=== PATIENT | female | born 1950 | race Caucasian/White ===

== ENCOUNTER → 2017-07-30 13:49 | Outpatient (CLI) | payer MEDICARE, BC, SELFPAY ==
[2017-07-30 15:07] LABS: Amphetamine Urine VISTA NEGATIVE (<1000 ng/mL); Barbiturate Urine VISTA NEGATIVE (< 200 ng/mL); Benzodiazepine Urine VISTA POSITIVE (< 200 ng/mL); Cocaine Urine VISTA NEGATIVE (< 300 ng/mL); Ecstacy Urine VISTA NEGATIVE (< 500 ng/mL); Methadone Urine VISTA NEGATIVE (< 300 ng/mL); PCP Urine VISTA NEGATIVE (< 25 ng/mL); THC Urine VISTA NEGATIVE (< 50 ng/mL); Vista UDS pH Range 6
== END ==
PROVIDERS: Family Provider Internal Medicine; PCP Internal Medicine; Visit Provider Anesthesiology Pain Medicine
DX: F11.20 Opioid dependence, uncomplicated (principal)
CPT/HCPCS: 80307

== ENCOUNTER 2017-08-07 09:53 | Outpatient (RCR) | payer MEDICARE, BC, SELFPAY ==
--- NOTE | 2017-08-08 08:30 | HP.FCE ---
HP OT Functional Capacity Eval - Task Lift Floor (Occasional 1-33% of Day): 25# Floor (Frequent 34-66% of Day): 12# Floor (Constant 67-100% of Day): 5# Floor PDL: Light-Medium Knee (Occasional 1-33% of Day): 25# Knee (Frequent 34-66% of Day): 12# Knee (Constant 67-100% of Day): 5# Knee PDL: Light-Medium Waist (Occasional 1-33% of Day): 20# Waist (Frequent 34-66% of Day): 10# Waist (Constant 67-100% of Day): NA Waist PDL: Light Shoulder (Occasional 1-33% of Day): 20# Shoulder (Frequent 34-66% of Day): 10# Shoulder (Constant 67-100% of Day): NA Shoulder PDL: Light Overhead (Occasional 1-33% of Day): 10# Overhead (Frequent 34-66% of Day): NA Overhead (Constant 67-100% of Day): NA Overhead PDL: Sedentary - Work Activity/Posture Bending: Frequent Ability (34-66% of day) Squatting: Occasional Ability (1-33% of day) Comments: with use of back brace as needed Kneeling: No Ablility (0% of day) Reaching out: Frequent Ability (34-66% of day) Reaching up: Frequent Ability (34-66% of day) Sitting: Frequent Ability (34-66% of day) Walking: Occasional Ability (1-33% of day) Comments: with use of walking stick when needed Standing: Frequent Ability (34-66% of day) - Reference Duration Sedentary Sedentary Light Light Light Medium Medium Medium Heavy Very Heavy Heavy Occasional (0-33% of day) Frequent (34-66% of day) Constant (67-100% of day) 10 # Negligible Negligible 15 # 8 # Negligible 20 # 10# Negli. 35 # 18 # 7 # 50 # 25 # 10 # 75 # 100 # >100 # 38 # 50 # >50 # 15 # 20 # >20 # - Patient Information Height: 1.63 m Weight:: 78.471 kg Hand Dominance: right - Medical History Medical History Including Restrictions: Pt states in 2002 pt tore her left maniscus pt states she can not remember if she had any follow up therapy or sx following. Pt states in 2011 she had a hurnia repair with complications. PT states in 2014 she injured her back while lifting a spot washer out of her husbands truck with him. She states she crushed her vertebra L4-L5-S1 and had back sx to repair the vertebra- pt states she did go through Physical therapy following her sx. Pt states she does do exercies on a daily basis. Pt has been seen by pain mtg. and have injections for back pain, pt states she has had it done the last two year. pt is unable to recall how many shots done. pt states she feels she was placed on a lift restriction of no more than 25# by OBGYN due to her bladder issues. pt is unsure if her spine surgon put her on any lift restrictions - Diagnoses Diagnoses: Sarmiento's esophagus. Overactive Bladder. Hypertension. Mixed hyperlipidemia. Cornary atherosclerosis. IBS. Dysmetabolic syndrome. Dysphagia. Reversed peristalsis. stress incontinence. Urge incontinence. Frequency of urination. Anxiety. Cephalalgia. Vertigo - Symptoms Symptoms: Muscle cramps. Back pain. Left knee weakness- pt states she does have a brace but does not fit under her pants. - Pain Pain: Pt reports no current pain. - Work History Work History: Pt states she works at [employer], pt states she has worked there 4-6 weeks. 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 Pt states she works 5-7 hours 5 days a week. 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 pt is unsure what her lift requirement is. Pt states she was working at [employer] but pt states she was not getting the hours she needed so she left to find a job to get more hours. - Behavioral Behavioral: pt was cooroperative - ADLS ADLS: Pt states she lives with her in a one story with a basement. Pt states she has two entry steps with two hand rails. PT states she is ind. with all bathing, dressing and meal prep. pt states she does do cleaning and lundry. pt states she does use grab bars in her shower and they have a raised toilet. - Physical Examination ROM: pt demo all upper and lower body range of motion within normal limits Strength: pt demo all upper and lower body range of motion within normal limits- pt demo strength UB at 5/5 and hip flexors at 4/5 and all other lower body strength testing at 5/5. pt demo functional strength Right Career And Transition Teacher Strength Average: 52.33 Right Career And Transition Teacher Strength Percentile: 30% Left Career And Transition Teacher Strength Average: 58.33 Left Career And Transition Teacher Strength Percentile: 32% Right Lateral Pinch Average: 9.33 Right Lateral Pinch Percentile: 25% Left Lateral Pinch Average: 10.33 Left Lateral Pinch Percentile: 50% Right Tripod Pinch Average: 9.00 Right Tripod Pinch Percentile: 25% Left Tripod Pinch Average: 8.66 Left Tripod Pinch Percentile: <50% Sensation: pt demo 2.83 bilateral hands sensation is with in normal limits Fine Motor: 9-hole peg test-. right 24.11 seconds =25%. left 24.02 seconds =50%. pt demo good fine motor skills Balance: no loss of balance was noted during testing - Non Material Handling Activities Bending: PT demo the ability to bend forward three times and then ten times and ten time rapidly. pt can bend forward on a frequent basis. Squatting: Pt demo the ability to squat three times and ten times and ten times rapidly. pt placed back brace on during the portion. pt reported pain in LE during this task -10/24 pt states pain stopped when she finished squatting. pt can squat on an occasional basis with use of back brace when needed. Kneeling: pt demo no ability to kneel. Reaching out/up: pt demo the ability to reach up/out three times and ten times and ten times rapidly. pt completed while standing. pt removed her back brace during this portion. pt can reach up/put on a frequent basis. Walking: Pt amb with antalgic gait for 15 min. pt did start of using a walking stick but after a few min. she just carried it. Pt reported left knee pain during and following ambulation 07/24. PT can ambulate on a occasional basis with use of walking stick as needed. Standing: pt demo ability to stand for 8 min with no expressed or apparent discomfort. pt stands for most of her work day and states she is feeling fine. Per functional activities questionnnaire pt can stand/walk for 8 hours a day. pt can stand on a frequent basis. Sitting: PT demo the ability to sit for 50 min with no expressed discomfort. per functional activities questionnaire pt reports she can drive or ride in a car for 4 hours before need to get out and stretch. pt can sit on a frequent basis. Climbing Stairs: pt demo the ability to ascend and descend ten steps with a reciprical step pattern and use of bilateral hand rails. - Dynamic Occasional Lifting Capacity Floor Lift: pt demo the ability to lift 25# maximally from this level with us of her back brace. Knee Lift: pt demo the ability to lift 25# maximally from this level with us of her back brace. Waist Lift: pt demo the ability to lift 20# maximally from this level with us of her back brace. Shoulder Lift: pt demo the ability to lift 20# maximally from this level with us of her back brace. Overhead Lift: pt demo the ability to lift 10# maximally from this level with us of her back brace. Carrying: Pt demo the ability to carry 10# for 80 feet with use of her back brace.
== END 2017-08-07 19:00 | disposition home or self-care (01) ==
LOC: OT 09:53
PROVIDERS: Family Provider Internal Medicine; PCP Internal Medicine; Visit Provider Anesthesiology Pain Medicine
DX: M54.9 Dorsalgia, unspecified (principal)
CPT/HCPCS: 97750

== ENCOUNTER 2017-09-02 10:27 | Emergency (ER) | payer MEDICARE, BC, SELFPAY ==
[2017-09-02 10:27] VITALS: BP 147/82; PULSE 85; RESP 18; TEMP 36.6; O2SAT 98; BMI 29.2
--- NOTE | 2017-09-02 11:00 | RAD_ITS ---
STUDY: X-RAY CHEST REASON FOR EXAM: Female, 67 years old. Chest pain. TECHNIQUE: Single AP portable view of the chest. COMPARISON: None. FINDINGS: The lungs are clear and expanded. There is no demonstrated pleural abnormality. Normal size heart. Normal mediastinum and prince. Normal visualized pulmonary arteries. There is atherosclerotic tortuosity of the aortic arch and descending thoracic aorta. There is a levoscoliosis of the thoracic spine. Normal visualized ribs, clavicles, and shoulders. There is no demonstrated abnormality of the visualized soft tissue structures of the upper abdomen. RAD/Chest 1 View (Portable) IMPRESSION: No acute abnormality is seen. Electronically Signed: Venkata Singer MD at 11:33 EDT Tel [phone], Service support ,
--- NOTE | 2017-09-02 11:02 | EKG12_ITS ---
Test Reason : CP Blood Pressure : / mmHG Vent. Rate : 074 BPM Atrial Rate : 074 BPM P-R Int : 184 ms QRS Dur : 072 ms QT Int : 388 ms P-R-T Axes : 047 -46 -07 degrees QTc Int : 430 ms Normal sinus rhythm Left axis deviation Low voltage QRS Inferior infarct , age undetermined Abnormal ECG Confirmed by DOUG VARGAS, ESSENCE ([id number]), editorial clerk CARTER HADDAD ([id number]) on 09/04/2017 8:56:15 AM Referred By: YOLANDA Confirmed By:ESSENCE CAMACHO MD
[2017-09-02 11:27] LABS: Absolute Lymphocyte Count 2.21 X10^3/ul (0.83-4.51); Absolute Neutrophil Count 4.4 X10^3/uL (2.0-7.7); Basophil# 0.04 X10^3/uL; Basophil% 0.5 % (0-1); Eosinophil# 0.38 X10^3/uL; Eosinophils% 4.8 % (0-5); Hematocrit 42.9 % (37-47); Lymphocyte # 2.21 X10^3/ul (4.0); Lymphocyte % 28.1 % (19-41); Mean Corp Hgb Conc 32.6 g/gl (32-36); Mean Corpuscular Hgb 30.7 pg (27.0-32.0); Mean Corpuscular Volume 94.1 fL (81-99); Mean Platelet Vol. 9.2 fl (6.2-12.0); Monocyte# 0.84 X10^3/uL; Monocyte% 10.7 % (0-10); Neutrophil # 4.39 X10^3/uL (2.7-7.7); Neutrophil % 55.8 % (47-70); Platelet Count 280 K/mm3 (150-450); RBC Distribution Width CV 13.4 % (11.6-14.6); RBC Distribution Width SD 46.2 fl (35.1-43.9); Red Blood Count 4.56 M/mm3 (4.2-5.4); White Blood Count 7.9 K/mm3 (4.4-11.0)
[2017-09-02 11:28] LABS: POSITIVE COUNT NO; POSITIVE DIFFERENTIAL NO; POSITIVE MORPHOLOGY NO
[2017-09-02 11:46] LABS: Anion Gap 7 (5-15); BUN 18 mg/dL (7-18); BUN/Creat Ratio 20.1 RATIO (10-20); Chloride 108 mmol/L (98-107); EST Glomerular Filtration Rate 67 mL/min (>60); Est Glom Filt Rate - Afr Amer 81 mL/min (>60); Estimated Creatinine Clearance 52.38 ml/min; Glucose 84 mg/dL (74-106); Potassium 3.8 mmol/L (3.5-5.1); Sodium Level 141 mmol/L (136-145)
--- NOTE | 2017-09-02 11:57 | ED.VISSUMM ---
- ER Visit Summary Date of Service: 09/02/17 Chief Complaint: [Chest pain and left arm pain] History of Present Illness: The patient is a 67 F [presents to the emergency department with complaint of retrosternal chest discomfort that she has had for years. Patient states the discomfort seems to come and go. Patient states the discomfort is worse with certain physicians. Patient states the discomfort goes away if she lays on her side. Patient states that she became more concerned as over the last 2 weeks she has had some intermittent discomfort into her left arm. Patient describes discomfort that starts in her left pinky and radiates to the elbow than the shoulder into her back. Patient is also had intermittent headaches that seem to get better with medication that she has at home such as gabapentin and Valium. Patient denies any neck pain. She denies any fever or recent illness. Patient does not have exertional chest pain or shortness of breath.] Physical Examination: [HEENT-PERRLA, EOMI. Cranial nerves II through XII grossly intact. TMs clear. Mucous membranes moist. No adenopathy. Cardiovascular-regular rate and rhythm without murmur or ectopy Lungs-clear to auscultation, chest wall stable without crepitus or subcu emphysema Abdomen-normoactive bowel sounds, soft, nontender, no rebound or rigidity, no peritoneal signs. Extremities-intact ?4, normal range of motion, normal pulses, atraumatic]. Patient has no tenderness to the left arm on palpation and has normal reflexes at the bicep, tricep, and brachial radialis. 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 Test Results: [EKG obtained on arrival showed a sinus rhythm with a ventricular rate of 74 bpm with an old inferior infarct noted. CBC with differential was normal. Chemistries unremarkable. Troponin was less than 0.015. Chest x-ray showed nothing acute.] Emergency Department Course and Treatment: [] Treatment Plan: [Patient follow-up with her neurosurgeon regarding the pain in her left arm with the next 5-7 days. As I suspect she may have a neuropathy or cervical radiculopathy. Patient to follow-up with her primary care physician regarding her chest discomfort although I do not feel this is cardiac as it is very atypical and positional.] Disposition: [Discharged home in stable condition] Impression: [Atypical chest pain Left arm pain-suspect neuropathy versus cervical radiculopathy] This note was generated with [employer] dictation software. It may contain incorrect words, spelling, and punctuation that were not noted in review of the chart prior to signing ED Disposition - Plan for ED Patient: Chief Complaint: Upper Extremity Injury Referrals: Miryam Riojas MD [Primary Care Provider] -
--- NOTE | 2017-09-02 12:01 | ED.DCSUM_ITS ---
- ER Visit Summary Date of Service: 09/02/17 Chief Complaint: [Chest pain and left arm pain] History of Present Illness: The patient is a 67 F [presents to the emergency department with complaint of retrosternal chest discomfort that she has had for years. Patient states the discomfort seems to come and go. Patient states the discomfort is worse with certain physicians. Patient states the discomfort goes away if she lays on her side. Patient states that she became more concerned as over the last 2 weeks she has had some intermittent discomfort into her left arm. Patient describes discomfort that starts in her left pinky and radiates to the elbow than the shoulder into her back. Patient is also had intermittent headaches that seem to get better with medication that she has at home such as gabapentin and Valium. Patient denies any neck pain. She denies any fever or recent illness. Patient does not have exertional chest pain or shortness of breath.] Physical Examination: [HEENT-PERRLA, EOMI. Cranial nerves II through XII grossly intact. TMs clear. Mucous membranes moist. No adenopathy. Cardiovascular-regular rate and rhythm without murmur or ectopy Lungs-clear to auscultation, chest wall stable without crepitus or subcu emphysema Abdomen-normoactive bowel sounds, soft, nontender, no rebound or rigidity, no peritoneal signs. Extremities-intact ?4, normal range of motion, normal pulses, atraumatic]. Patient has no tenderness to the left arm on palpation and has normal reflexes at the bicep, tricep, and brachial radialis. Patient has normal relief pharmacist strength bilaterally. Test Results: [EKG obtained on arrival showed a sinus rhythm with a ventricular rate of 74 bpm with an old inferior infarct noted. CBC with differential was normal. Chemistries unremarkable. Troponin was less than 0.015. Chest x-ray showed nothing acute.] Emergency Department Course and Treatment: [] Treatment Plan: [Patient follow-up with her neurosurgeon regarding the pain in her left arm with the next 5-7 days. As I suspect she may have a neuropathy or cervical radiculopathy. Patient to follow-up with her primary care physician regarding her chest discomfort although I do not feel this is cardiac as it is very atypical and positional.] Disposition: [Discharged home in stable condition] Impression: [Atypical chest pain Left arm pain-suspect neuropathy versus cervical radiculopathy] This note was generated with [employer] dictation software. It may contain incorrect words, spelling, and punctuation that were not noted in review of the chart prior to signing ED Disposition - Plan for ED Patient: Chief Complaint: Upper Extremity Injury Referrals: Miryam Riojas MD [Primary Care Provider] -
--- NOTE | 2017-09-02 12:01 | ED.DEP ---
ED Disposition - Plan for ED Patient: Chief Complaint: Upper Extremity Injury Instructions: ED Chest Pain Atypical Unkn Cause, ED Cervical Radiculopathy Referrals: Miryam Riojas MD [Primary Care Provider] - 5-7 Days
[2017-09-02 12:08] VITALS: BP 119/73; PULSE 66; RESP 16; O2SAT 96
== END 2017-09-02 12:09 | disposition home or self-care (01) ==
LOC: ED 11:46
PROVIDERS: Emergency Provider Emergency Medicine; Family Provider Internal Medicine; PCP Internal Medicine
DX: R07.89 Other chest pain (principal); M79.602 Pain in left arm; Z86.718 Personal history of other venous thrombosis and embolism
CPT/HCPCS: 71045; 80048; 84484; 85025; 93005; 99283

== ENCOUNTER → 2017-11-13 11:25 | Outpatient (CLI) | payer MEDICARE, BC, SELFPAY ==
[2017-11-13 12:34] LABS: Amphetamine Urine VISTA NEGATIVE (<1000 ng/mL); Barbiturate Urine VISTA NEGATIVE (< 200 ng/mL); Benzodiazepine Urine VISTA POSITIVE (< 200 ng/mL); Cocaine Urine VISTA NEGATIVE (< 300 ng/mL); Ecstacy Urine VISTA NEGATIVE (< 500 ng/mL); Methadone Urine VISTA NEGATIVE (< 300 ng/mL); PCP Urine VISTA NEGATIVE (< 25 ng/mL); THC Urine VISTA NEGATIVE (< 50 ng/mL); Vista UDS pH Range 6
== END ==
PROVIDERS: Family Provider Internal Medicine; PCP Internal Medicine; Visit Provider Anesthesiology Pain Medicine
DX: F11.20 Opioid dependence, uncomplicated (principal)
CPT/HCPCS: 80307

== ENCOUNTER 2018-01-23 12:19 | Emergency (ER) | payer MEDICARE, BC, SELFPAY ==
[2018-01-23 12:21] VITALS: BP 153/86; PULSE 78; RESP 17; TEMP 36.9; O2SAT 97; BMI 31.4
--- NOTE | 2018-01-23 12:28 | RAD_ITS ---
STUDY: X-RAY - LEFT WRIST REASON FOR EXAM: Female, 67 years old. Bruising and swelling following a recent fall. TECHNIQUE: 3 view(s) of the wrist were obtained. COMPARISON: None. FINDINGS: Normal visualized distal radius and ulna. Normal radiocarpal articulation. Normal distal radioulnar articulation. Normal carpal bones. Normal carpal articulations. There is degenerative arthrosis of the carpometacarpal articulation of the thumb. Normal second through fifth carpometacarpal articulations. Normal visualized metacarpal bones. Soft tissue swelling. RAD/Wrist min 3 Views IMPRESSION: No acute abnormality is seen. Electronically Signed: Venkata Singer MD at 12:56 EST Tel [phone], Service support ,
--- NOTE | 2018-01-23 13:41 | ED.VISSUMM ---
- ER Visit Summary Date of Service: 01/23/18 Chief Complaint: Left wrist pain History of Present Illness: The patient is a [address] Riojas. She reports that she fell January 05 and continues to have left wrist pain. She reports that some aching constant pain that is 5 out of 10 in severity. States pain is 10 out of 10 with movement. She is taken [place] and gabapentin without relief. She denies any paresthesias distally. Physical Examination: Vitals: Stable. Afebrile. General: Well-nourished and well-developed. Head: Normocephalic atraumatic. Neck: Supple, no lymphadenopathy. No JVD. Nontender. Cardiovascular: Regular rate and rhythm. No murmurs. Respiratory: No respiratory distress. Clear to auscultation bilaterally. Abdominal: Soft, nontender, nondistended, normal bowel sounds. No guarding, rebound, or peritoneal signs. Back: Nontender. Extremities: Mild diffuse tenderness palpation over the distal radius and all of the carpal bones. No focal tenderness in the anatomic snuffbox or with axial load of her thumb. She is neurovascular intact distally. No contusion, no edema. Skin: Normal color, no rash. Neurologic: Alert and oriented ?3. Cranial nerves II through XII are intact. Normal strength and sensation. Psych: Normal affect. Test Results: Left wrist x-ray is negative. Emergency Department Course and Treatment: Patient was placed in a Velcro wrist splint. Treatment Plan: Patient will be discharged instructions to follow-up with her primary care physician 1 week if not improving. Disposition: To home in improved and stable condition. Impression: 1. Left wrist sprain. This note was generated with [employer] dictation software. It may contain incorrect words, spelling, and punctuation that were not noted in review of the chart prior to signing ED Disposition - Plan for ED Patient: Disposition: Home or Assisted Living Chief Complaint: Upper Extremity Injury Instructions: ED Sprain Wrist Referrals: Miryam Riojas MD [Primary Care Provider] - 1 Week if not improving
[2018-01-23 14:10] VITALS: BP 148/84; PULSE 92; RESP 14; O2SAT 98
== END 2018-01-23 14:11 | disposition home or self-care (01) ==
LOC: ED 13:47
PROVIDERS: Emergency Provider Emergency Medicine; Family Provider Internal Medicine; PCP Internal Medicine
DX: S63.502A Unspecified sprain of left wrist, initial encounter (principal); W19.XXXA Unspecified fall, initial encounter; Y93.89 Activity, other specified; Y92.89 Other specified places as the place of occurrence of the external cause; Y99.8 Other external cause status
CPT/HCPCS: 73110; 99283

== ENCOUNTER → 2018-04-03 11:07 | Outpatient (CLI) | payer MEDICARE, BC, SELFPAY ==
--- NOTE | 2018-04-03 11:14 | RAD_ITS ---
STUDY: X-RAY - LEFT KNEE REASON FOR EXAM: Female, 68 years old. Left knee for sometimes getting worse and giving out on her. History of left meniscus surgery 2001. Has fallen a couple of times. TECHNIQUE: 4 view(s) of the knee. COMPARISON: 04/25/2015. FINDINGS: Normal visualized distal femur. Normal visualized proximal tibia and fibula. Normal proximal tibiofibular articulation. Minimal spurring along the femoral notch and femoral condyle medially. There is mild degenerative arthrosis of the medial femorotibial compartment. There is severe degenerative arthrosis of the lateral femorotibial compartment with severe joint space narrowing. Normal patellofemoral articulation. There is no demonstrated joint effusion. The soft tissue structures are unremarkable. 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 There is no acute displaced fracture or dislocation. Electronically Signed: Pricilla Harris MD at 5:34 EST , Service support ,
--- NOTE | 2018-04-03 11:14 | RAD_ITS ---
STUDY: X-RAY - RIGHT KNEE REASON FOR EXAM: Female, 68 years old. Pain in both knees swelling and spasm right knee, history of couple of falls. TECHNIQUE: 4 view(s) of the knee. COMPARISON: 04/18/2015 FINDINGS: Normal visualized distal femur. Normal visualized proximal tibia and fibula. Normal proximal tibiofibular articulation. There is mild degenerative arthrosis of the medial femorotibial compartment. There is mild degenerative arthrosis of the lateral femorotibial compartment. Normal patellofemoral articulation. There is no demonstrated joint effusion. The soft tissue structures are unremarkable. RAD/Knee 4 or More Views IMPRESSION: Mild degenerative changes of the femoral tibial compartments appear overall stable. There is no acute displaced fracture or dislocation. Electronically Signed: Pricilla Harris MD at 5:35 EST , Service support ,
--- OUTSIDE RECORDS SUMMARY | 2018-06-07 21:17 | XMS RPT_ITS ---
:1950 Author Organization OHIP Support Name Relationship Address Phone CHARMAINE ROJAS Unavailable [address] + [place] [address] CRYSTAL, ED Unavailable . + [place] [address] R Unavailable Unavailable Unavailable CRYSTAL, RAY Unavailable [address] + [place] [address] CRYSTAL, ED Unavailable . + [place] [address] R Unavailable Unavailable Unavailable CRYSTAL, RAY Unavailable [address] + [place] [address] CRYSTAL, ED Unavailable Unavailable + [place] [address] R Unavailable Unavailable Unavailable CRYSTAL, RAY Unavailable [address] + [place] [address] CRYSTAL, ED Unavailable Unavailable + [place] [address] R Unavailable Unavailable Unavailable CRYSTAL, RAY Unavailable [address] + [place] [address] CRYSTAL, ED Unavailable Unavailable + [place] [address] R Unavailable Unavailable Unavailable CRYSTAL, RAY Unavailable [address] + [place] [address] CRYSTAL, ED Unavailable Unavailable [phone] [place] [address] R Unavailable Unavailable Unavailable CRYSTAL, RAY Unavailable [address] + [place] [address] CRYSTAL, ED Unavailable Unavailable [phone] [place] [address] R Unavailable Unavailable Unavailable Care Team Providers Name Role Phone PAULO SCOTT Referring Unavailable JUAN RODRIGUEZ (SPICE MIXER) Referring Unavailable JUAN RODRIGUEZ (SPICE MIXER) Attending Unavailable JUAN RODRIGUEZ (SPICE MIXER) Referring Unavailable OLIVIER TEJEDA (PT) Attending Unavailable TALAMPAS, PAULO D Referring Unavailable OLIVIER TEJEDA (PT) Attending Unavailable TALAMPAS, PAULO D Referring Unavailable TESTRAKE, OMERO Referring Unavailable TESTRAKE, OMERO Attending Unavailable TESTRAKE, OMERO Referring Unavailable TESTRAKE, OMERO Attending Unavailable RODRIGUEZJUAN (SPICE MIXER) Attending Unavailable TALAMPAS, PAULO D Referring Unavailable HAAGENOLGA (FLOW TRADER) Attending Unavailable MARADIAGA, DAI D Attending Unavailable MARADIAGA, DAI D Referring Unavailable NIKHILOLIVIER (PT) Attending Unavailable TALAMPAS, PAULO D Referring Unavailable TALAMPAS, PAULO D Referring Unavailable TALAMPAS, PAULO D Referring Unavailable NIKHIL, OLIVIER (PT) Attending Unavailable TALAMPAS, PAULO D Referring Unavailable TALAMPAS, PAULO D Referring Unavailable HAAGEN, OLGA (FLOW TRADER) Attending Unavailable TALAMPAS, PAULO D Referring Unavailable TALAMPAS, PAULO D Attending Unavailable TALAMPAS, PAULO D Referring Unavailable Wayt, Omero Attending Unavailable Talampas, Paulo Referring Unavailable Wayt, Omero Attending Unavailable Wayt, Omero Referring Unavailable Talampas, Paulo Primary Care Unavailable Basali, Crystal Attending Unavailable Basali, Ayman Referring Unavailable Talampas, Paulo Primary Care Unavailable Basali, Crystal Attending Unavailable Basali, Paoman Referring Unavailable Talampas, Paulo Primary Care Unavailable Talampas, Paulo Primary Care Unavailable Ungur, Remus Attending Unavailable Basali, Paoman Attending Unavailable Basali, Ayman Referring Unavailable Talampas, Paulo Primary Care Unavailable Talampas, Apulo Primary Care Unavailable Ramsey Mathias Attending Unavailable PROBLEMS PROBLEMS DATE TYPE CONDITION / CODE ATTENDING STATUS SOURCE 04/03/2018 Unknown M25.561 - Pain in Omero Marie Active [facility] right knee / Community M25.561(ICD-10) Hospital Repository 04/03/2018 Unknown M25.562 - Pain in Omero Marie Active [facility] left knee / Community M25.562(ICD-10) Hospital Repository 02/27/2015 Active Hypothyroidism, NA Active [facility] unspecified / [facility] E03.9(ICD-10) [facility] Repository 06/30/2011 Active Diaphragmatic hernia NA Active [facility] without obstruction [facility] or gangrene / [facility] K44.9(ICD-10) Repository 02/20/2006 Active Metabolic syndrome / NA Active [facility] E88.81(ICD-10) Clinic Main [facility] Repository 11/24/2017 Active Other long-term NA Active [facility] (current) drug [facility] therapy / [facility] Z79.899(ICD-10) Repository 11/13/2017 Unknown F11.20 - Opioid Basali, Ayyovany Active [facility] dependence, Community uncomplicated / Hospital F11.20(ICD-10) Repository 09/11/2017 Active Dizziness and NA Active [facility] giddiness / [facility] R42(ICD-10) [facility] Repository 08/28/2017 Active Unknown / RODRIGUEZ, JUAN Active [facility] UNK(Unknown) (SPICE MIXER) Clinic Main [facility] Repository 11/12/2017 Unknown M54.9 - Dorsalgia, Basali, Ayman Active [facility] unspecified / Community M54.9(ICD-10) Hospital Repository 07/15/2017 Active Peripheral vascular NA Active [facility] disease, unspecified Clinic Main / I73.9(ICD-10) [facility] Repository 07/01/2017 Active Pain, unspecified / NA Active [facility] R52(ICD-10) Clinic Main [facility] Repository 05/26/2017 Active Unspecified fall, NA Active [facility] initial encounter / [facility] W19.XXXA(ICD-10) [facility] Repository 05/26/2017 Active Pain in left NA Active [facility] shoulder / [facility] M25.512(ICD-10) [facility] Repository 03/30/2015 Active Mixed hyperlipidemia NA Active [facility] / E78.2(ICD-10) Clinic Main [facility] Repository 02/27/2015 Active Essential (primary) Active [facility] hypertension / [facility] I10(ICD-10) [facility] Repository 05/22/2017 Active Other abnormal NA Active [facility] glucose / [facility] R73.09(ICD-10) [facility] Repository 04/28/2017 Active Encounter for Active [facility] screening mammogram [facility] for malignant [facility] neoplasm of breast / Repository Z12.31(ICD-10) PROCEDURES PROCEDURES No Procedure Records FoundRESULTS RESULTS ORTHOPEDIC VISIT Observed: 04/03/2018 Status: F Source: [facility] REPORT 12:39 PM [facility] REPOSITORY [facility] [address] [place] [address] OFFICE VISIT Date of Service: 04/03/18 MR#: [id number] Acct: [id number] Name: KESHIA ROJAS Rep #: [id number] : 1950 Provider: LEONEL Marie Age/Sex: 68/F Location: [facility].SMO Status: Signed Intake Intake Visit Reasons: LEFT KNEE Allergies adhesive Allergy (Verified 01/23/18 12:21) Unknown aspirin [From Aggrenox] Allergy (Verified 01/23/18 12:21) Unknown benzocaine [From Cetacaine] Allergy (Verified 01/23/18 12:21) Unknown butamben [From Cetacaine] Allergy (Verified 01/23/18 12:21) Unknown cortisone [Cortisone] Allergy (Verified 01/23/18 12:21) Unknown dipyridamole [From Aggrenox] Allergy (Verified 01/23/18 12:21) Unknown lansoprazole [From Prevacid] Allergy (Verified 01/23/18 12:21) Unknown latex Allergy (Verified 01/23/18 12:21) Unknown meclizine Allergy (Verified 01/23/18 12:21) Unknown methylprednisolone acetate [From Depo-Medrol] Allergy (Verified 01/23/18 12:21) Unknown metoprolol Allergy (Verified 01/23/18 12:21) Unknown omeprazole [From Prilosec] Allergy (Verified 01/23/18 12:21) Unknown omeprazole magnesium [From Prilosec] Allergy (Verified 01/23/18 12:21) Unknown oxybutynin chloride [From Ditropan] Allergy (Verified 01/23/18 12:21) Unknown povidone-iodine [From Betadine] Allergy (Verified 01/23/18 12:21) Unknown soap [From Betadine] Allergy (Verified 01/23/18 12:21) Unknown sulfamethoxazole [From Bactrim] Allergy (Verified 01/23/18 12:21) Unknown tegaserod hydrogen maleate [From Zelnorm] Allergy (Verified 01/23/18 12:21) Unknown tetracaine [From Cetacaine] Allergy (Verified 01/23/18 12:21) Unknown tolterodine tartrate [From Detrol] Allergy (Verified 01/23/18 12:21) Unknown trimethoprim [From Bactrim] Allergy (Verified 01/23/18 12:21) Unknown Medications Cetirizine HCl [Zyrtec] 10 mg PO DAILY 01/11/14 [History Confirmed 04/11/14] Darifenacin Hydrobromide [Enablex] 7.5 mg PO DAILY 01/11/14 [History Confirmed 04/11/14] Diazepam [Valium] 2 mg PO BID PRN PRN 01/11/14 [History Confirmed 04/11/14] Esomeprazole Mag Trihydrate [Nexium] 40 mg PO DAILY 01/11/14 [History Confirmed 04/11/14] Gabapentin [Neurontin] 100 mg PO DAILY 01/11/14 [History Confirmed 04/11/14] Halcinonide [Halog] 30 gm TP TID 01/11/14 [History Confirmed 04/11/14] Levothyroxine [Synthroid] 50 mcg PO DAILY 01/11/14 [History Confirmed 04/11/14] Multivitamins,Therapeutic [Multivitamin] 1 tab PO DAILY 01/11/14 [History Confirmed 04/11/14] Acetaminophen [Tylenol] 325 mg PO Q6H PRN 04/11/14 [History Confirmed 04/11/14] Oxycodone HCl/Acetaminophen [Percocet 5/325] 1 tab PO Q4H PRN PRN 04/11/14 [History Confirmed 04/11/14] PFSH Social History Smoking Status: Never smoker HPI LEFT KNEE: Details: KESHIA ROJAS is a 68 year old F here today for left knee pain, Dr Paz referred her back to us because he did not want to do the injections without ortho consult. Today she has min left knee pain and greater right knee pain with mild swelling. SHe is wearing compression socks at work due to hx of dvt in right calf, her filter was removed in 2014 prior to lumbar spine surgery. She is using a cane today due to instability of the left knee especially when carrying something with her. She has not had any recent imaging of the knees. No recent PT for the knees but she did have a balance assessment that showed poor results, this was done at [facility]. Ortho Exam Right Knee Swelling: No Homans Sign: No Knee ROM: Yes ROM-Extension -20 to 0, No ROM-Flexion 0-140 Examination: Yes Med jt line tenderness, Yes Lat jt line tenderness, No Pain with extention, Yes Pain with flexion, Yes Crepitus, No José Manuel's Test Stability: NML: Anterior Drawer, NML: Valgus 30, NML: Varus 30 KNEE: No evident abnormalities on inspection of the knee. No acute localized or generalized swelling the knee. She has no ecchymosis/bruising, erythema, or other skin changes. Patient has full extension of the knee with some minor decrease in flexion. She does have some discomfort with flexion as well. She has some minor medial and lateral joint line tenderness. There is some crepitus noted with range of motion. She has negative varus and valgus stress. No pain or laxity with drawer test. Left Knee Swelling: No Homans Sign: No Knee ROM: Yes ROM-Extension -20 to 0, No ROM-Flexion 0-140 Examination: Yes med jt line tenderness, Yes Lat jt line tenderness, Yes Pain with flexion, Yes Crepitus Stability: NML: Anterior Drawer, NML: Valgus 30, NML: Varus 30 Patella Grind: Yes KNEE: No evident abnormalities on inspection of the knee. No acute localized or generalized swelling the knee. She has no ecchymosis/bruising, erythema, or other skin changes. Patient has full extension of the knee with some minor decrease in flexion. She does have some discomfort with flexion as well. She has some minor medial and lateral joint line tenderness. There is some crepitus noted with range of motion. She has negative varus and valgus stress. No pain or laxity with drawer test. Assessment AND Plan Problems 1. Bilateral primary osteoarthritis of knee M17.0 Plan We did review patient's x-rays in office today. X-rays definitely shows evidence of moderate tricompartmental narrowing on the left knee as well as some minor tract problem narrowing of the right knee. There are no acute bony abnormalities noted on x-rays indicating any acute fracture or injury. This time we did discuss patient's x-rays which deftly show bilateral arthritis which is worse on the left than the right. She states her pains are actually pretty intermittent where today the right is worse than the left but she complains more about the left. I do think that injections would be something of benefit for her at this time. I did offer her an injection today and she states that her pains are mostly because of the spasm and cramping above and below the knee and wants to know if it would take away that pain. She is currently seeing Dr. Paz for injections of the lower back I did explain discussed that I am not certain that injections directly into the knee joint are going to affect any spasms or cramping above or below the knee or the radiating pain she describes. Some of the radiating pain she describes deafly sounds like it could be coming from the back and therefore think that is may be a better place to start. I do think that with the amount of arthritis seen that injections intra-articularly to the knee would provide her with relief. At this point we discussed this and patient would like to have Dr. Paz do the injections that she has scheduled into the back and we will see if she has any improvement. At that time she is can return to the office here and we can give the injections into the knee or she can have Dr. Paz inject the knee at that time. Patient should continue to wear her braces especially if they provide her some support. She deftly should continue to use a cane or a walker as she does have balance issues in general. This note was generated with PlayWith dictation software. It may contain incorrect words, spelling, and punctuation that were not noted in checking the note before signing. Orders Orders: Plan Detail Follow Up 4 Weeks Coding Level of Care Code Off vis,est,level 3 Diagnoses Bilateral primary osteoarthritis of knee M17.0 04/03/18 1239 <Electronically signed by Omero CASTANEDA> Date Omero CASTANEDA Cosigner Signature: Date (if applicable) CC: KNEE 4 OR MORE Observed: 04/03/2018 Status: F Source: [facility] PAUL 11:14 AM [facility] REPOSITORY [facility] Imaging Services [address] [place] [address] Knee 4 or More Views MR#: [id number] Acct: [id number] Name: KESHIA ROJAS Rep #: [id number] : 1950 F 68 From: Pricilla Harris MD PCP: Paulo Scott MD Status: REG CLI Study: Knee 4 or More Views Date of Exam: 04/03/18 Exam# [id number] Ordering Dr: Omero Marie STUDY: X-RAY - LEFT KNEE REASON FOR EXAM: Female, 68 years old. Left knee for sometimes getting worse and giving out on her. History of left meniscus surgery 2001. Has fallen a couple of times. TECHNIQUE: 4 view(s) of the knee. COMPARISON: 04/25/2015. FINDINGS: Normal visualized distal femur. Normal visualized proximal tibia and fibula. Normal proximal tibiofibular articulation. Minimal spurring along the femoral notch and femoral condyle medially. There is mild degenerative arthrosis of the medial femorotibial compartment. There is severe degenerative arthrosis of the lateral femorotibial compartment with severe joint space narrowing. Normal patellofemoral articulation. There is no demonstrated joint effusion. The soft tissue structures are unremarkable. 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 There is no acute displaced fracture or dislocation. Electronically Signed: Pricilla Harris MD at 5:34 EST , Service support , CC: LEONEL Marie; Paulo Scott MD Healthcare Educator: Signed KNEE 4 OR MORE Observed: 04/03/2018 Status: F Source: [facility] VIEWS 11:14 AM [facility] REPOSITORY [facility] Imaging Services [facility] [place] [address] Knee 4 or More Views MR#: [id number] Acct: [id number] Name: KESHIA ROJAS Rep #: [id number] : 1950 F 68 From: Pricilla Harris MD PCP: Paulo Scott MD Status: REG CLI Study: Knee 4 or More Views Date of Exam: 04/03/18 Exam# [id number] Ordering Dr: Omero Marie STUDY: X-RAY - RIGHT KNEE REASON FOR EXAM: Female, 68 years old. Pain in both knees swelling and spasm right knee, history of couple of falls. TECHNIQUE: 4 view(s) of the knee. COMPARISON: 04/18/2015 FINDINGS: Normal visualized distal femur. Normal visualized proximal tibia and fibula. Normal proximal tibiofibular articulation. There is mild degenerative arthrosis of the medial femorotibial compartment. There is mild degenerative arthrosis of the lateral femorotibial compartment. Normal patellofemoral articulation. There is no demonstrated joint effusion. The soft tissue structures are unremarkable. RAD/Knee 4 or More Views IMPRESSION: Mild degenerative changes of the femoral tibial compartments appear overall stable. There is no acute displaced fracture or dislocation. Electronically Signed: Pricilla Harris MD at 5:35 EST , Service support , CC: LEONEL Marie; Paulo Scott MD Healthcare Educator: Signed PROGRESS Observed: 02/06/2018 Status: COMPLETED Source: [place] 12:16 PM [facility] REPOSITORY HNO ID: [id number] Author: Paulo Scott Service: (none) Author Type: Physician Type: Progress Notes Filed: 02/19/2018 10:41 PM Note Text: This note was created using IQMSriter. Subjective Keshia Rojas is a 67 year old female. HISTORY Keshia Rojas is a 67 year old lad here for follow up appointment. Ongoing issues with retrograde peristalsis. Work will allow only 5 minutes for a break. Strained back when fell. To get sling. Some chest pain related. Some intermittent leg swelling noted; more after rehydrating after work. Reviewed ER evaluation in August 2017 for chest pain. Ongoing stressors dealing with . Work has been stressful--not able to eat while at work because needs to be able to take her time to eat to avoid problems with reverse peristalsis and regurgitation. No where private for her to eat. 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 (Dr. Charlton) - Cataracts, both eyes - Coronary atherosclerosis of unspecified type of vessel, douglas or graft minimal plaque on cath 08/06/2006 - DVT (deep venous thrombosis) ([facility]) 2010 Right leg OCTOBER 2009 NOT TREATED - Dysmetabolic syndrome X - Esophageal reflux - Fibromyalgia better with Lyrica - Floppy eyelid syndrome - Hiatal hernia Large when seen on EGD 10/2010 at [facility] (Dr. 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 diazePAM (VALIUM) 5 mg tablet Take 1 tablet by mouth twice daily as needed (vertigo or anxiety) for up to 90 days. lisinopril (ZESTRIL, PRINIVIL) 10 mg tablet Take 1 tablet by mouth once daily. levothyroxine (SYNTHROID) 50 mcg tablet Take 1 tablet by mouth once daily. white petrolatum 94% - mineral oil 3% 94-3 % oint Dr. [facility] esomeprazole (NEXIUM 24HR) 20 mg capsule Take 1 capsule by mouth once daily. Needs Namebrand over the counter, not generic. gabapentin (NEURONTIN) 100 mg capsule Take 3 capsules at bedtime (Dr. Paz) (Patient taking differently: 300 mg daily at bedtime. Take 3 capsules at bedtime (Dr. 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 DX: EDEMA 782.3, venous insuffiency 459.81(Futuro therapeutic open heel and open toe if available) acetaminophen (TYLENOL) 325 mg tablet Take 650 mg by mouth every 6 hours as needed. COMPOUNDED PRESCRIPTION [place] Antiseptic Powder (carbolic acid; zinc oxide) as needed per Dr. Arleen Burdick multivitamin ORAL tablet Take 1 tablet by mouth twice daily. sodium chloride 0.9 % soln 1,000 mL with povidone-iodine 10 % soln 20 mL Irrigate 2 Drops as instructed once daily. No current facility-administered medications for this visit. ALLERGIES Allergen Reactions - Ekg Patches [Other] Hives skin gets red and raw needs hypoalergetic patches also any patch used for testing - Aggrenox [Aspirin-D* Other: See Comments Headache - Bactrim [Sulfametho* dizzy, redness, face flushed - Betadine [Povidone-* Rash - Cetacaine [Butamben* Other: See Comments excessive mucous production - Cigarettes [Other] Shortness of Breath Hard to breath/has a sensitivity not an allergy - Codeine Intolerance - Cortisone Shortness of Breath injection was given and swelled and had trouble breathing - Depomedrol [Other] Swelling FACE SWELLED AFTER CORTISONE SHOT IN KNEE - Detrol [Tolterodine* Intolerance HEAD ACHE ,DRY MOUTH - Ditropan [Oxybutyni* Intolerance DIZZY,SUN SENSITIVE - Latex Rash - Meclizine Swelling URINARY RETENTION,FACE FELT FUNNY - Metoprolol GI Upset headache.itching.hives. - Myrbetriq [Mirabegr* Other: See Comments elevated BP - Paper Tape [Other] Rash - Prevacid [Lansopraz* GI Upset GAS,BURPING HEADACHE - Prilosec [Omeprazol* Diarrhea - Tizanidine Other: See Comments increased pain - Zelnorm [Tegaserod * Hives FAMILY HISTORY Problem Relation Age of Onset - other (Celiac disease) Mother Cancer at 87 y/o - Cancer Father PROSTATE ?KIDNEYBLADDER,? at 7o's - Cancer Paternal Grandfather MELONOMA - Colon Cancer Maternal Aunt - Hypertension Sister - Cancer Other LYMPHOBLASTOMA GREAT GRANDMOTHER PATERNAL - Colon Cancer Maternal Grandmother - other (Heart / Stroke) Maternal Grandmother AND CANCER OF STOMACH - Breast Cancer Maternal Aunt diagnosed in her 90's Social History Marital status: Spouse name: charmaine Years of education: 13.5 Number of children: 3 Occupational History Occupation Employer Comment retired [employer]* Social History Main Topics Smoking status: Never Smoker Smokeless tobacco: Never Used Alcohol use: Yes 6.0 oz/week Comment: occasionally rare Drug use: No Sexual activity: Not Currently Partners with: Male Review of Systems Constitutional: Positive for fatigue. HENT: Negative. Respiratory: Negative. Negative for apnea. Cardiovascular: No signs of cardiac ischemia Gastrointestinal: See HPI Endocrine: Negative. Genitourinary: Negative. Musculoskeletal: See HPI Psychiatric/Behavioral: Ongoing depression and anxiety issues; stress with and his medical issues Objective BP 132/76 Pulse 72 Resp 16 Wt 82.1 kg (181 lb) BMI 31.07 kg/m? Physical Exam Component Latest Ref Rng AND Units 11/24/2017 WBC 3.70 - 11.00 k/uL 8.76 RBC 3.90 - 5.20 m/uL 4.74 Hemoglobin 11.5 - 15.5 g/dL 14.6 Hematocrit 36.0 - 46.0 % 46.8 (H) MCV 80.0 - 100.0 fL 98.7 MCH 26.0 - 34.0 pG 30.8 MCHC 30.5 - 36.0 g/dL 31.2 RDW-CV 11.5 - 15.0 % 13.3 Platelet Count 150 - 400 k/uL 318 MPV 9.0 - 12.7 fL 9.8 Neut% % 41.5 Abs Neut (ANC) 1.45 - 7.50 k/uL 3.61 Lymph% % 43.9 Abs Lymph 1.00 - 4.00 k/uL 3.85 [place]% % 7.8 Abs [place] <0.87 k/uL 0.68 Eosin% % 5.7 Abs Eosin <0.46 k/uL 0.50 (H) Baso% % 1.1 Abs Baso <0.11 k/uL 0.10 Nucleated Reds 0 /100 WBC 0.0 Absolute nRBC <0.01 k/uL <0.01 Diff Type Auto Diff Protein, Total 6.3 - 8.0 g/dL 6.3 Albumin 3.9 - 4.9 g/dL 3.8 (L) Calcium 8.5 - 10.2 mg/dL 9.5 Bilirubin, Total 0.2 - 1.3 mg/dL 0.4 Alkaline Phosphatase 32 - 117 U/L 62 AST 13 - 35 U/L 23 Glucose 74 - 99 mg/dL 96 BUN 7 - 21 mg/dL 16 Creatinine 0.58 - 0.96 mg/dL 0.79 Sodium 136 - 144 mmol/L 141 Potassium 3.7 - 5.1 mmol/L 4.3 Chloride 97 - 105 mmol/L 103 CO2 22 - 30 mmol/L 26 Anion Gap 9 - 18 mmol/L 12 ALT 7 - 38 U/L 21 eGFR- >60 eGFR-All Other Races . >60 Cholesterol, Total <200 mg/dL 186 Triglyceride <150 mg/dL 104 HDL Cholesterol >39 mg/dL 53 LDL Cholesterol <100 mg/dL 112 (H) Non HDL Cholesterol <130 mg/dL 133 (H) Fasting Time hrs 12 VLDL Cholesterol <30 mg/dL 21 TC:HDL Ratio <5.10 3.51 LDL:HDL Ratio <2.54 2.11 Creatinine, Ur Random (UCRR) 20 - 300 mg/dL 91.7 Albumin, Urine Random 0.0 - 23.0 mg/L <12.0 Albumin/Creat Ratio 0 - 30 mg/g Not calculated Hemoglobin A1C 4.3 - 5.6 % 5.9 (H) Estimated Average Glucose mg/dL 123 TSH 0.400 - 5.500 uU/mL 3.120 Free T3 2.3 - 4.1 pg/mL 2.8 Free T4 0.9 - 1.7 ng/dL 1.1 Assessment and Plan Encounter Diagnosis ICD-10-CM 1. Anxiety F41.9 diazePAM (VALIUM) 5 mg tablet 2. Reversed peristalsis R19.2 3. Vertigo R42 diazePAM (VALIUM) 5 mg tablet 4. Acquired hypothyroidism E03.9 5. Essential hypertension I10 6. Mixed hyperlipidemia E78.2 7. Marital conflict Z63.0 Patient here for yearly exam and follow up. Valium helps with anxiety and vertigo. Stable with control. No signs of diversion or abuse of medication(s); no adverse effects. Continue present management. [facility] website checked and validated. All prescriptions have been APPROPRIATELY filled. No suspicious activity was identified. 02/06/2018 by Paulo Scott MD Clinically euthyroid. TSH fine. Continue to adjust dose of replacement as indicated based on symptoms and labs. BP controlled. Continue present management. Above issues addressed with patient. Patient involved in shared decision making for management of medical issues. History and medications reviewed. Epic updated as needed Refills taken care of and meds adjusted as indicated after reviewed history, exam and labs. Health Maintenance reviewed. Updated record and/or ordered tests as recorded. Encouraged on efforts at healthy diet and regular exercise and adequate sleep. Needs to keep working on diet and exercise with lifestyle changes for effective weight loss as well as prevention of DM, and control of BP and lipids. Told her to let me know if a letter with restrictions (such as need for longer time to eat at breaks) can help so does not have to go all workday without eating or drinking. Emotional support given. The majority of the visit was spent counseling and/or coordinating care for the patient. Jylp-jv-nqie time was at least 25 minutes. Paulo Scott MD CNOV Observed: 02/06/2018 Status: COMPLETED Source: [place] 10:40 AM [facility] REPOSITORY Office Visit (INTMWS) KESHIA ROJAS ([id number]) 1950 F Date Time Provider Department 02/06/18 10:40 AM PAULO SCOTT INTMWS During your visit today, we recorded the following information about you: Pulse Respiration Blood pressure Weight 72/minute 16/minute 132/76 82.1 kg Paulo Scott MD 02/19/2018 10:41 PM Signed This note was created using IQMSriter. Subjective Keshia Rojas is a 67 year old female. HISTORY Keshia Rojas is a 67 year old lad here for follow up appointment. Ongoing issues with retrograde peristalsis. Work will allow only 5 minutes for a break. Strained back when fell. To get sling. Some chest pain related. Some intermittent leg swelling noted; more after rehydrating after work. Reviewed ER evaluation in August 2017 for chest pain. Ongoing stressors dealing with . Work has been stressful--not able to eat while at work because needs to be able to take her time to eat to avoid problems with reverse peristalsis and regurgitation. No where private for her to eat. 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 (Dr. Charlton) - Cataracts, both eyes - Coronary atherosclerosis of unspecified type of vessel, douglas or graft minimal plaque on cath 08/06/2006 - DVT (deep venous thrombosis) ([facility]) 2009 Right leg OCTOBER 2009 NOT TREATED - Dysmetabolic syndrome X - Esophageal reflux - Fibromyalgia better with Lyrica - Floppy eyelid syndrome - Hiatal hernia Large when seen on EGD 10/2010 at [facility] (Dr. 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 diazePAM (VALIUM) 5 mg tablet Take 1 tablet by mouth twice daily as needed (vertigo or anxiety) for up to 90 days. lisinopril (ZESTRIL, PRINIVIL) 10 mg tablet Take 1 tablet by mouth once daily. levothyroxine (SYNTHROID) 50 mcg tablet Take 1 tablet by mouth once daily. white petrolatum 94% - mineral oil 3% 94-3 % oint [facility] esomeprazole (NEXIUM 24HR) 20 mg capsule Take 1 capsule by mouth once daily. Needs Namebrand over the counter, not generic. gabapentin (NEURONTIN) 100 mg capsule Take 3 capsules at bedtime (Dr. Paz) (Patient taking differently: 300 mg daily at bedtime. Take 3 capsules at bedtime (Dr. 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 DX: EDEMA 782.3, venous insuffiency 459.81(Futuro therapeutic open heel and open toe if available) acetaminophen (TYLENOL) 325 mg tablet Take 650 mg by mouth every 6 hours as needed. COMPOUNDED PRESCRIPTION Shackelford Antiseptic Powder (carbolic acid; zinc oxide) as needed per Dr. Arleen Burdick multivitamin ORAL tablet Take 1 tablet by mouth twice daily. sodium chloride 0.9 % soln 1,000 mL with povidone-iodine 10 % soln 20 mL Irrigate 2 Drops as instructed once daily. No current facility-administered medications for this visit. ALLERGIES Allergen Reactions - Ekg Patches [Other] Hives skin gets red and raw needs hypoalergetic patches also any patch used for testing - Aggrenox [Aspirin-D* Other: See Comments Headache - Bactrim [Sulfametho* dizzy, redness, face flushed - Betadine [Povidone-* Rash - Cetacaine [Butamben* Other: See Comments excessive mucous production - Cigarettes [Other] Shortness of Breath Hard to breath/has a sensitivity not an allergy - Codeine Intolerance - Cortisone Shortness of Breath injection was given and swelled and had trouble breathing - Depomedrol [Other] Swelling FACE SWELLED AFTER CORTISONE SHOT IN KNEE - Detrol [Tolterodine* Intolerance HEAD ACHE ,DRY MOUTH - Ditropan [Oxybutyni* Intolerance DIZZY,SUN SENSITIVE - Latex Rash - Meclizine Swelling URINARY RETENTION,FACE FELT FUNNY - Metoprolol GI Upset headache.itching.hives. - Myrbetriq [Mirabegr* Other: See Comments elevated BP - Paper Tape [Other] Rash - Prevacid [Lansopraz* GI Upset GAS,BURPING HEADACHE - Prilosec [Omeprazol* Diarrhea - Tizanidine Other: See Comments increased pain - Zelnorm [Tegaserod * Hives FAMILY HISTORY Problem Relation Age of Onset - other (Celiac disease) Mother Cancer at 87 y/o - Cancer Father PROSTATE ?KIDNEYBLADDER,? at 7o's - Cancer Paternal Grandfather MELONOMA - Colon Cancer Maternal Aunt - Hypertension Sister - Cancer Other LYMPHOBLASTOMA GREAT GRANDMOTHER PATERNAL - Colon Cancer Maternal Grandmother - other (Heart / Stroke) Maternal Grandmother AND CANCER OF STOMACH - Breast Cancer Maternal Aunt diagnosed in her 90's Social History Marital status: Spouse name: charmaine Years of education: 13.5 Number of children: 3 Occupational History Occupation Employer Comment retired [employer]* Social History Main Topics Smoking status: Never Smoker Smokeless tobacco: Never Used Alcohol use: Yes 6.0 oz/week Comment: occasionally rare Drug use: No Sexual activity: Not Currently Partners with: Male Review of Systems Constitutional: Positive for fatigue. HENT: Negative. Respiratory: Negative. Negative for apnea. Cardiovascular: No signs of cardiac ischemia Gastrointestinal: See HPI Endocrine: Negative. Genitourinary: Negative. Musculoskeletal: See HPI Psychiatric/Behavioral: Ongoing depression and anxiety issues; stress with and his medical issues Objective BP 132/76 Pulse 72 Resp 16 Wt 82.1 kg (181 lb) BMI 31.07 kg/m? Physical Exam Component Latest Ref Rng AND Units 11/24/2017 WBC 3.70 - 11.00 k/uL 8.76 RBC 3.90 - 5.20 m/uL 4.74 Hemoglobin 11.5 - 15.5 g/dL 14.6 Hematocrit 36.0 - 46.0 % 46.8 (H) MCV 80.0 - 100.0 fL 98.7 MCH 26.0 - 34.0 pG 30.8 MCHC 30.5 - 36.0 g/dL 31.2 RDW-CV 11.5 - 15.0 % 13.3 Platelet Count 150 - 400 k/uL 318 MPV 9.0 - 12.7 fL 9.8 Neut% % 41.5 Abs Neut (ANC) 1.45 - 7.50 k/uL 3.61 Lymph% % 43.9 Abs Lymph 1.00 - 4.00 k/uL 3.85 [place]% % 7.8 Abs [place] <0.87 k/uL 0.68 Eosin% % 5.7 Abs Eosin <0.46 k/uL 0.50 (H) Baso% % 1.1 Abs Baso <0.11 k/uL 0.10 Nucleated Reds 0 /100 WBC 0.0 Absolute nRBC <0.01 k/uL <0.01 Diff Type Auto Diff Protein, Total 6.3 - 8.0 g/dL 6.3 Albumin 3.9 - 4.9 g/dL 3.8 (L) Calcium 8.5 - 10.2 mg/dL 9.5 Bilirubin, Total 0.2 - 1.3 mg/dL 0.4 Alkaline Phosphatase 32 - 117 U/L 62 AST 13 - 35 U/L 23 Glucose 74 - 99 mg/dL 96 BUN 7 - 21 mg/dL 16 Creatinine 0.58 - 0.96 mg/dL 0.79 Sodium 136 - 144 mmol/L 141 Potassium 3.7 - 5.1 mmol/L 4.3 Chloride 97 - 105 mmol/L 103 CO2 22 - 30 mmol/L 26 Anion Gap 9 - 18 mmol/L 12 ALT 7 - 38 U/L 21 eGFR- >60 eGFR-All Other Races . >60 Cholesterol, Total <200 mg/dL 186 Triglyceride <150 mg/dL 104 HDL Cholesterol >39 mg/dL 53 LDL Cholesterol <100 mg/dL 112 (H) Non HDL Cholesterol <130 mg/dL 133 (H) Fasting Time hrs 12 VLDL Cholesterol <30 mg/dL 21 TC:HDL Ratio <5.10 3.51 LDL:HDL Ratio <2.54 2.11 Creatinine, Ur Random (UCRR) 20 - 300 mg/dL 91.7 Albumin, Urine Random 0.0 - 23.0 mg/L <12.0 Albumin/Creat Ratio 0 - 30 mg/g Not calculated Hemoglobin A1C 4.3 - 5.6 % 5.9 (H) Estimated Average Glucose mg/dL 123 TSH 0.400 - 5.500 uU/mL 3.120 Free T3 2.3 - 4.1 pg/mL 2.8 Free T4 0.9 - 1.7 ng/dL 1.1 Assessment and Plan Encounter Diagnosis ICD-10-CM 1. Anxiety F41.9 diazePAM (VALIUM) 5 mg tablet 2. Reversed peristalsis R19.2 3. Vertigo R42 diazePAM (VALIUM) 5 mg tablet 4. Acquired hypothyroidism E03.9 5. Essential hypertension I10 6. Mixed hyperlipidemia E78.2 7. Marital conflict Z63.0 Patient here for yearly exam and follow up. Valium helps with anxiety and vertigo. Stable with control. No signs of diversion or abuse of medication(s); no adverse effects. Continue present management. PDMP website checked and validated. All prescriptions have been APPROPRIATELY filled. No suspicious activity was identified. 02/06/2018 by Paulo Scott MD Clinically euthyroid. TSH fine. Continue to adjust dose of replacement as indicated based on symptoms and labs. BP controlled. Continue present management. Above issues addressed with patient. Patient involved in shared decision making for management of medical issues. History and medications reviewed. Epic updated as needed Refills taken care of and meds adjusted as indicated after reviewed history, exam and labs. Health Maintenance reviewed. Updated record and/or ordered tests as recorded. Encouraged on efforts at healthy diet and regular exercise and adequate sleep. Needs to keep working on diet and exercise with lifestyle changes for effective weight loss as well as prevention of DM, and control of BP and lipids. Told her to let me know if a letter with restrictions (such as need for longer time to eat at breaks) can help so does not have to go all workday without eating or drinking. Emotional support given. The majority of the visit was spent counseling and/or coordinating care for the patient. Uzlv-zz-lhna time was at least 25 minutes. Paulo Scott MD Referring Provider: PAULO SCOTT [[id number]] Allergies As of Date: 02/06/2018 Noted Allergy Reaction ekg patches [Other] 02/20/2006 4 - Hives Comments: skin gets red and raw needs hypoalergetic patches also any patch used for testing AGGRENOX (ASPIRIN-DIPYRIDAMOLE) 05/27/2011 14 - Other: See Comments Comments: Headache BACTRIM (SULFAMETHOXAZOLE-TRIMETH*03/20/2006 Comments: dizzy, redness, face flushed BETADINE (POVIDONE-IODINE) 11/04/2006 2 - Rash CETACAINE ([id number]*09/11/2012 14 - Other: See Comments Comments: excessive mucous production cigarettes [Other] 02/22/2010 12 - Shortness of Breath Comments: Hard to breath/has a sensitivity not an allergy CODEINE 03/07/2006 5 - Intolerance CORTISONE 12 - Shortness of Breath Comments: injection was given and swelled and had trouble breathing DEPOMEDROL [Other] 03/07/2006 7 - Swelling Comments: FACE SWELLED AFTER CORTISONE SHOT IN KNEE DETROL (TOLTERODINE TARTRATE) 03/07/2006 5 - Intolerance Comments: HEAD ACHE ,DRY MOUTH DITROPAN (OXYBUTYNIN CHLORIDE) 03/07/2006 5 - Intolerance Comments: DIZZY,SUN SENSITIVE LATEX 11/03/2009 2 - Rash MECLIZINE 03/07/2006 7 - Swelling Comments: URINARY RETENTION,FACE FELT FUNNY METOPROLOL 04/24/2006 8 - GI Upset Comments: headache.itching.hives. MYRBETRIQ (MIRABEGRON) 12/26/2014 14 - Other: See Comments Comments: elevated BP paper tape [Other] 08/15/2006 2 - Rash PREVACID (LANSOPRAZOLE) 03/07/2006 8 - GI Upset Comments: GAS,BURPING HEADACHE PRILOSEC (OMEPRAZOLE MAGNESIUM) 6 - Diarrhea TIZANIDINE 03/24/2014 14 - Other: See Comments Comments: increased pain ZELNORM (TEGASEROD HYDROGEN RACHELL*03/07/2006 4 - Hives Date Reviewed: 02/06/2018 Reviewed by: Danielle Brian LPN - Fully Assessed Reason for Visit: Physical [83] Primary Visit Diagnosis:Anxiety [F41.9] Other Visit Diagnoses:Reversed peristalsis [R19.2] Vertigo [R42] Acquired hypothyroidism [E03.9] Essential hypertension [I10] Mixed hyperlipidemia [E78.2] Marital conflict [Z63.0] Order(s):[START ON 03/02/2018] diazePAM (VALIUM) 5 mg tabletTake 1 tablet by mouth twice daily as needed (vertigo or anxiety) for up to 90 days.Disp: 90 tabletRfl: 0 Prescriptions as of 02/06/2018 Sig: HYOSCYAMINE SULFATE 0.125 MG * LUBIPROSTONE 8 MCG CAPSULE Take 8 mcg by mouth daily wit* DIAZEPAM 5 MG TABLET Take 1 tablet by mouth twice * LISINOPRIL 10 MG TABLET Take 1 tablet by mouth once d* LEVOTHYROXINE 50 MCG TABLET Take 1 tablet by mouth once d* WHITE PETROLATUM-MINERAL OIL * [facility] ESOMEPRAZOLE MAGNESIUM 20 MG * Take 1 capsule by mouth once * GABAPENTIN 100 MG CAPSULE Take 3 capsules at bedtime (D* Patient taking differently: 300 mg daily at bedtime. Take* COMPOUNDED PRESCRIPTION SEMI ELECTRIC HOSPITAL BED AN* HYDROCODONE 5 MG-ACETAMINOPHE* Take 1 by mouth at bedtime COMPOUNDED PRESCRIPTION KNEE HIGH COMPRESSION STOCKIN* ACETAMINOPHEN 325 MG TABLET Take 650 mg by mouth every 6 * COMPOUNDED PRESCRIPTION Shackelford Antiseptic Powder (c* * MULTIVITAMIN TABLET Take 1 tablet by mouth twice * POVIDONE IODINE 2% IN 0.9% NA* Irrigate 2 Drops as instructe* Medication notes this encounter MULTIVITAMIN TABLET >> Danielle Brian LPN 02/06/2018 11:42 AM >> DANIELLE BRIAN LPN FriFeb 06, 2018 11:42 AM Problem List As Of Date 02/06/2018 Noted Resolved Essential hypertension [I10] Acute, but ill-defined, cerebrovascular disease*INVALID FOR*12/28/2016 More... Mixed hyperlipidemia [E78.2] Coronary atherosclerosis [I25.10] 1) Laparotomy 2) Joann gastroplasty 3) Wedge t* 06/30/2011 More... IRRITABLE COLON [K58.9] DYSMETABOLIC SYNDROME X [E88.81] Hypothyroidism [E03.9] More... DVT (deep venous thrombosis) ([facility]) [I82.409] INVALID FOR*03/04/2017 More... Anemia [D64.9] INVALID FOR* 1) Laparotomy 2) Joann gastroplasty 3) Wedge * More... Obesity [E66.9] Discharge planning [Z71.89] INVALID FOR*09/03/2011 More... Other acute postoperative pain [G89.18] INVALID FOR*09/03/2011 More... 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 OAB (overactive bladder) [N32.81] INVALID FOR* Reversed peristalsis [R19.2] INVALID FOR* More... Stress incontinence [N39.3] INVALID FOR* Urge incontinence [N39.41] INVALID FOR* Frequency of urination [R35.0] INVALID FOR* Nocturia [R35.1] INVALID FOR* Kidney stone [N20.0] INVALID FOR* Anxiety [F41.9] INVALID FOR* Marital conflict [Z63.0] INVALID FOR* Cephalalgia [R51] INVALID FOR* IFG (impaired fasting glucose) [R73.01] INVALID FOR* Lipoma of right upper extremity [D17.21] INVALID FOR* Vertigo [R42] INVALID FOR* Falls, subsequent encounter [W19.XXXD] INVALID FOR* Acute pain of left shoulder [M25.512] INVALID FOR* Neck pain, chronic [M54.2, G89.29] INVALID FOR* Prescriptions ordered this encounter Disp Refills Start End DIAZEPAM 5 MG TABLET 90 t* 0 03/02/2018 05/31/2018 Class: Print RX Route: ORAL Sig: Take 1 tablet by mouth twice daily as needed (vertigo or anxiety) for up to 90 days. Medications Discontinued During This Encounter diazePAM (VALIUM) 5 mg tablet 90 t* 0 11/25/2017 02/06/2018 Class: Print RX Route: ORAL Sig: Take 1 tablet by mouth twice daily as needed (vertigo or anxiety) for up to 90 days. Disc: Reason for discontinue is not on file. Disposition: Return for 3 months follow up (make next 2 appointments). Follow-up and Disposition History Recorded Letter Text [facility] Department of Internal Medicine Paulo Scott MD [address], [place] [address] February 06, 2018 Keshia Rojas : 1950 To whom it may concern: My patient, Keshia Rojas, requires at least 15 to 30 minutes after eating and drinking because of medical issues. 5 minutes is not adequate time for eating. Please allow time for her break. Sincerely, Paulo Scott MD Encounter Status:Closed by PAULO SCOTT MD on 02/19/18 EMERGENCY DEPARTMENT Observed: 01/23/2018 Status: F Source: [place] SUMMARY 6:33 PM [facility] REPOSITORY [facility] Medical Records Department [address] [place], [place] [id number] Emergency Department Summary 01/23/18 1341 MR#: [id number] Acct: [id number] Name: KESHIA ROJAS Rep #: [id number] : 1950 67 From: Ramsey Mathias MD PCP: Paulo Scott MD Status: DEP ER - ER Visit Summary Date of Service: 01/23/18 Chief Complaint: Left wrist pain History of Present Illness: The patient is a [address] Scott. She reports that she fell January 05 and continues to have left wrist pain. She reports that some aching constant pain that is 5 out of 10 in severity. States pain is 10 out of 10 with movement. She is taken Pandora and gabapentin without relief. She denies any paresthesias distally. Physical Examination: Vitals: Stable. Afebrile. General: Well-nourished and well-developed. Head: Normocephalic atraumatic. Neck: Supple, no lymphadenopathy. No JVD. Nontender. Cardiovascular: Regular rate and rhythm. No murmurs. Respiratory: No respiratory distress. Clear to auscultation bilaterally. Abdominal: Soft, nontender, nondistended, normal bowel sounds. No guarding, rebound, or peritoneal signs. Back: Nontender. Extremities: Mild diffuse tenderness palpation over the distal radius and all of the carpal bones. No focal tenderness in the anatomic snuffbox or with axial load of her thumb. She is neurovascular intact distally. No contusion, no edema. Skin: Normal color, no rash. Neurologic: Alert and oriented 3. Cranial nerves II through XII are intact. Normal strength and sensation. Psych: Normal affect. Test Results: Left wrist x-ray is negative. Emergency Department Course and Treatment: Patient was placed in a Velcro wrist splint. Treatment Plan: Patient will be discharged instructions to follow-up with her primary care physician 1 week if not improving. Disposition: To home in improved and stable condition. Impression: 1. Left wrist sprain. This note was generated with [employer] software. It may contain incorrect words, spelling, and punctuation that were not noted in review of the chart prior to signing ED Disposition - Plan for ED Patient: Disposition: Home or Assisted Living Chief Complaint: Upper Extremity Injury Instructions: ED Sprain Wrist Referrals: Paulo Scott MD [Primary Care Provider] - 1 Week if not improving What to do if you have Problems For any increased pain, shortness of breath, bleeding, nausea or vomiting, chest pain, or any unexpected problems, contact your Primary Care Provider. Call [facility] ([phone]) or report to the closest Emergency Room. Call 911 if necessary. 01/23/18 1833 <Electronically signed by Ramsey Mathias MD> Date Ramsey Mathias MD Cosigner Signature (If Indicated): Date CC: Paulo Scott MD WRIST MIN 3 VIEWS Observed: 01/23/2018 Status: F Source: [place] 12:29 PM [facility] REPOSITORY [facility] Imaging Services [address] [place] [id number] Wrist min 3 Views MR#: [id number] Acct: [id number] Name: KESHIA ROJAS Rep #: [id number] : 1950 F 67 From: Venkata Singer MD PCP: Paulo cSott MD Status: PRE ER Study: Wrist min 3 Views Date of Exam: 01/23/18 Exam# [id number] Ordering Dr: Provider,Ed P. STUDY: X-RAY - LEFT WRIST REASON FOR EXAM: Female, 67 years old. Bruising and swelling following a recent fall. TECHNIQUE: 3 view(s) of the wrist were obtained. COMPARISON: None. FINDINGS: Normal visualized distal radius and ulna. Normal radiocarpal articulation. Normal distal radioulnar articulation. Normal carpal bones. Normal carpal articulations. There is degenerative arthrosis of the carpometacarpal articulation of the thumb. Normal second through fifth carpometacarpal articulations. Normal visualized metacarpal bones. Soft tissue swelling. RAD/Wrist min 3 Views IMPRESSION: No acute abnormality is seen. Electronically Signed: Venkata Singer MD at 12:56 EST Tel [phone], Service support , CC: ED PHYSICIAN PROVIDER; Paulo Scott MD Healthcare Educator: Signed PROGRESS Observed: 12/05/2017 Status: COMPLETED Source: [place] 1:22 PM [facility] [place] REPOSITORY O ID: [id number] Author: Sandie Rice LPN Service: (none) Author Type: (none) Type: Progress Notes Filed: 12/05/2017 1:22 PM Note Text: 67 year old female here for INACTIVATED INFLUENZA VACCINE. 1417-2705 Season Patient is identified by name and date of : Yes [] CONTRAINDICATIONS color enhanced section Age less than 6 months? No Allergy to eggs, chicken, chicken feathers, or chicken dander? No Allergy to thimerosal (a preservative) or formaldehyde, gelatin? No History of severe reaction to any vaccine component or a previous dose of influenza vaccination? No History of Guillain-[place]sa Syndrome within 6 weeks after a previous influenza vaccine? No Patient is not moderately or severely ill? No Current temperature greater or equal to 100.4F? No History of Bone Marrow Transplant prior 6 months or solid organ transplant in the past 3 months ? No History of fainting after a prior injection or medical procedure? No- ? If patient has fainted in the past, the CDC recommends sitting or lying down for 15 minutes after the vaccination. [] VERIFICATION color enhanced section Was the answer Yes for any of the above contraindications? No contraindications present. Acceptable to proceed with vaccine. Patient/guardian agrees the above answers are true to the best of their knowledge? Yes Flu vaccine information sheet given? Yes See immunization activity in [facility] for details of immunizations adminstered today. Patient age: [age] year old For The Flu Season 6-35 months old: Fluzone 0.25 ml - IM (Preservative Free) 3 years of age: Fluzone 0.5 ml - IM (Preservative Free) 3 years and older: Fluzone 0.5 ml- IM-(with Preservatives) 65+ years old: 2-49 years old Fluzone High-Dose 0.5 ml - IM (Preservative Free) FLUMIST- intranasal REMEMBER: If patient is less than 9 years of age and this is the first vaccine of Influenza to be received in any flu season, they should receive a second dose in one months time. CNNURSE Observed: 12/05/2017 Status: COMPLETED Source: [place] 1:10 PM [facility] REPOSITORY Nurse Visit (FAMPWS) KESHIA ROJAS ([id number]) 1950 F Date Time Provider Department 12/05/17 1:10 PM OR NURSE FAMPWS During your visit today, we recorded the following information about you: Temperature 97.6 degrees Sandie Dwayne GLOVER 12/05/2017 1:22 PM Signed 67 year old female here for INACTIVATED INFLUENZA VACCINE. Season Patient is identified by name and date of : Yes [] CONTRAINDICATIONS color enhanced section Age less than 6 months? No Allergy to eggs, chicken, chicken feathers, or chicken dander? No Allergy to thimerosal (a preservative) or formaldehyde, gelatin? No History of severe reaction to any vaccine component or a previous dose of influenza vaccination? No History of Guillain-Tul[place] Syndrome within 6 weeks after a previous influenza vaccine? No Patient is not moderately or severely ill? No Current temperature greater or equal to 100.4F? No History of Bone Marrow Transplant prior 6 months or solid organ transplant in the past 3 months ? No History of fainting after a prior injection or medical procedure? No- ? If patient has fainted in the past, the CDC recommends sitting or lying down for 15 minutes after the vaccination. [] VERIFICATION color enhanced section Was the answer Yes for any of the above contraindications? No contraindications present. Acceptable to proceed with vaccine. Patient/guardian agrees the above answers are true to the best of their knowledge? Yes Flu vaccine information sheet given? Yes See immunization activity in [facility] for details of immunizations adminstered today. Patient age: [age] year old For The [id number] Flu Season 6-35 months old: Fluzone 0.25 ml - IM (Preservative Free) 3 years of age: Fluzone 0.5 ml - IM (Preservative Free) 3 years and older: Fluzone 0.5 ml- IM-(with Preservatives) 65+ years old: 2-49 years old Fluzone High-Dose 0.5 ml - IM (Preservative Free) FLUMIST- intranasal REMEMBER: If patient is less than 9 years of age and this is the first vaccine of Influenza to be received in any flu season, they should receive a second dose in one months time. Referring Provider: SELF [[id number]] Allergies As of Date: 12/05/2017 Noted Allergy Reaction ekg patches [Other] 02/20/2006 4 - Hives Comments: skin gets red and raw needs hypoalergetic patches also any patch used for testing AGGRENOX (ASPIRIN-DIPYRIDAMOLE) 05/27/2011 14 - Other: See Comments Comments: Headache BACTRIM (SULFAMETHOXAZOLE-TRIMETH*03/20/2006 Comments: dizzy, redness, face flushed BETADINE (POVIDONE-IODINE) 11/04/2006 2 - Rash CETACAINE (CMCUWRCV-PAHFHPAGZA-GR*09/11/2012 14 - Other: See Comments Comments: excessive mucous production cigarettes [Other] 02/22/2010 12 - Shortness of Breath Comments: Hard to breath/has a sensitivity not an allergy CODEINE 03/07/2006 5 - Intolerance CORTISONE 12 - Shortness of Breath Comments: injection was given and swelled and had trouble breathing DEPOMEDROL [Other] 03/07/2006 7 - Swelling Comments: FACE SWELLED AFTER CORTISONE SHOT IN KNEE DETROL (TOLTERODINE TARTRATE) 03/07/2006 5 - Intolerance Comments: HEAD ACHE ,DRY MOUTH DITROPAN (OXYBUTYNIN CHLORIDE) 03/07/2006 5 - Intolerance Comments: DIZZY,SUN SENSITIVE LATEX 11/03/2009 2 - Rash MECLIZINE 03/07/2006 7 - Swelling Comments: URINARY RETENTION,FACE FELT FUNNY METOPROLOL 04/24/2006 8 - GI Upset Comments: headache.itching.hives. MYRBETRIQ (MIRABEGRON) 12/26/2014 14 - Other: See Comments Comments: elevated BP paper tape [Other] 08/15/2006 2 - Rash PREVACID (LANSOPRAZOLE) 03/07/2006 8 - GI Upset Comments: GAS,BURPING HEADACHE PRILOSEC (OMEPRAZOLE MAGNESIUM) 6 - Diarrhea TIZANIDINE 03/24/2014 14 - Other: See Comments Comments: increased pain ZELNORM (TEGASEROD HYDROGEN RACHELL*03/07/2006 4 - Hives Date Reviewed: 12/01/2017 Reviewed by: Rodolfo Sheikh Commercial Lawn Specialist - Fully Assessed Reason for Visit: Imm/Inj [58] Cmt: Flu Vaccine Primary Visit Diagnosis:Need for vaccination [Z23] Order(s):INFLUENZA SEASONAL HIGH DOSE AGE 65+ [[id number]] Order #: [id number] Prescriptions as of 12/05/2017 Sig: DIAZEPAM 5 MG TABLET Take 1 tablet by mouth twice * LISINOPRIL 10 MG TABLET Take 1 tablet by mouth once d* LEVOTHYROXINE 50 MCG TABLET Take 1 tablet by mouth once d* WHITE PETROLATUM-MINERAL OIL * [facility] ESOMEPRAZOLE MAGNESIUM 20 MG * Take 1 capsule by mouth once * GABAPENTIN 100 MG CAPSULE Take 3 capsules at bedtime (D* Patient taking differently: 300 mg daily at bedtime. Take* COMPOUNDED PRESCRIPTION SEMI ELECTRIC HOSPITAL BED AN* HYDROCODONE 5 MG-ACETAMINOPHE* Take 1 by mouth at bedtime POVIDONE IODINE 2% IN 0.9% NA* Irrigate 2 Drops as instructe* COMPOUNDED PRESCRIPTION KNEE HIGH COMPRESSION STOCKIN* ACETAMINOPHEN 325 MG TABLET Take 650 mg by mouth every 6 * COMPOUNDED PRESCRIPTION Shackelford Antiseptic Powder (c* * MULTIVITAMIN TABLET Take 1 tablet by mouth twice * Problem List As Of Date 12/05/2017 Noted Resolved Essential hypertension [I10] Acute, but ill-defined, cerebrovascular disease*INVALID FOR*12/28/2016 Priority: B More... Mixed hyperlipidemia [E78.2] Coronary atherosclerosis [I25.10] 1) Laparotomy 2) Joann gastroplasty 3) Wedge t* 06/30/2011 Priority: A More... IRRITABLE COLON [K58.9] DYSMETABOLIC SYNDROME X [E88.81] Hypothyroidism [E03.9] Priority: D More... DVT (deep venous thrombosis) ([facility]) [I82.409] INVALID FOR*03/04/2017 Priority: G More... Anemia [D64.9] INVALID FOR* 1) Laparotomy 2) Joann gastroplasty 3) Wedge * Priority: A More... Obesity [E66.9] Discharge planning [Z71.89] INVALID FOR*09/03/2011 Priority: G More... Other acute postoperative pain [G89.18] INVALID FOR*09/03/2011 Priority: B More... 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 OAB (overactive bladder) [N32.81] INVALID FOR* Reversed peristalsis [R19.2] INVALID FOR* More... Stress incontinence [N39.3] INVALID FOR* Urge incontinence [N39.41] INVALID FOR* Frequency of urination [R35.0] INVALID FOR* Nocturia [R35.1] INVALID FOR* Kidney stone [N20.0] INVALID FOR* Anxiety [F41.9] INVALID FOR* Marital conflict [Z63.0] INVALID FOR* Cephalalgia [R51] INVALID FOR* IFG (impaired fasting glucose) [R73.01] INVALID FOR* Lipoma of right upper extremity [D17.21] INVALID FOR* Vertigo [R42] INVALID FOR* Falls, subsequent encounter [W19.XXXD] INVALID FOR* Acute pain of left shoulder [M25.512] INVALID FOR* Neck pain, chronic [M54.2, G89.29] INVALID FOR* Encounter Status:Closed by SANDIE RICE LPN on 12/05/17 CNOV Observed: 12/01/2017 Status: COMPLETED Source: [place] 1:40 PM [facility] REPOSITORY Office Visit (FAMPWS) CRYSTALKESHIA TOLBERT ([id number]) 1950 F Date Time Provider Department 12/01/17 1:40 PM OLGA GUPTA [facility] During your visit today, we recorded the following information about you: Pulse Respiration Blood pressure Weight 74/minute 12/minute 128/66 80.3 kg Olga Gupta APRN.CNP 12/01/2017 3:22 PM Signed This is a 67 year old female who presents today with: Patient presents with: F/U 3 Month HISTORY OF PRESENT ILLNESS: Keshia Rojas is a 67 year old female. Patient presents with: F/U 3 Month HTN Controlled. No problems with medications. No chest pain. Notices palpitations -- refers when her blood pressure is up -- when she is dealing with people at work. Thyroid Normal recent TSH. Takes daily on empty stomach. + diarrhea/constipation. + dry skin. + thinning hair. GERD/Sarmiento's esophagus Takes nexium. Trouble eating -- foods get stuck. Trying to get back in with [facility]. Last EGD was two years ago. PAD Had seen vascular. Was going to have to need a toenail removed. Refers that she started wearing a diabetic socks, and this is now improved. 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 (Dr. Charlton) - Cataracts, both eyes - Coronary atherosclerosis of unspecified type of vessel, douglas or graft minimal plaque on cath 08/06/2006 - DVT (deep venous thrombosis) (HCC) 2010 Right leg OCTOBER 2009 NOT TREATED - Dysmetabolic syndrome X - Esophageal reflux - Fibromyalgia better with Lyrica - Floppy eyelid syndrome - Hiatal hernia Large when seen on EGD 10/2010 at [facility] (Dr. 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 Chavarria - DANDC, DIAG AND/OR THERAPEUTIC 07/24/2005 Dilation AND curettage - EXC TUMOR SOFT TISS FOREARM AND/WRIST SUBQ 3+CM Right 11/04/15 Exc. right forearm lipoma - HYSTEROSCOPY, DIAGNOSTIC (SEPARATE 07/24/2005 Hysteroscopy - INTRO. 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 and Short esophagus - REMOVE PART, LUMBAR VERTEBRAE 01/2014 - REMOVE TONSILS/ADENOIDS,<12 Y/O 1955 T/A (under age 12 years) - RETRIEV INTRAVASC FOREGN BODY 04-12-14 FILTER REMOVAL - RT HEART CATH 2006 x 2 ALLERGIES Ekg Patches [Other]; Aggrenox [Aspirin-Dipyridamole]; Bactrim [Sulfamethoxazole-Trimethoprim]; Betadine [Povidone-Iodine]; Cetacaine [Dkugsotv-Kargzfkmls-Betgxijygc]; Cigarettes [Other]; Codeine; Cortisone; Depomedrol [Other]; Detrol [Tolterodine Tartrate]; Ditropan [Oxybutynin Chloride]; Latex; Meclizine; Metoprolol; Myrbetriq [Mirabegron]; Paper Tape [Other]; Prevacid [Lansoprazole]; Prilosec [Omeprazole Magnesium]; Tizanidine; Zelnorm [Tegaserod Hydrogen Maleate] MEDICATIONS Current Outpatient Prescriptions: diazePAM (VALIUM) 5 mg tablet Take 1 tablet by mouth twice daily as needed (vertigo or anxiety) for up to 90 days. lisinopril (ZESTRIL, PRINIVIL) 10 mg tablet Take 1 tablet by mouth once daily. levothyroxine (SYNTHROID) 50 mcg tablet Take 1 tablet by mouth once daily. diclofenac sodium (VOLTAREN) 1 % topical gel Apply 2 g to affected area four times daily. diclofenac sodium (PENNSAID) 20 mg/gram /actuation(2 %) sopm Prescribed by Dr. Paz (Patient not taking: Reported on 09/08/2017 ) white petrolatum 94% - mineral oil 3% 94-3 % oint [facility] propylene glycol-glycerin (SOOTHE) 0.6-0.6 % Use 2 Drops in both eyes as needed. esomeprazole (NEXIUM 24HR) 20 mg capsule Take 1 capsule by mouth once daily. Needs Namebrand over the counter, not generic. Clobetasol Propionate 0.05 % lotn Apply to affected area. gabapentin (NEURONTIN) 100 mg capsule Take 3 capsules at bedtime (Dr. Paz) (Patient taking differently: 300 mg daily at bedtime. Take 3 capsules at bedtime (Dr. 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 docusate sodium (COLACE) 100 mg capsule Take 1 capsule by mouth twice daily as needed for Constipation. (Patient not taking: Reported on 09/08/2017 ) Compression Knee Highs KNEE HIGH COMPRESSION STOCKINGS 20- 30 MM. DX: EDEMA 782.3, venous insuffiency 459.81(Futuro therapeutic open heel and open toe if available) acetaminophen (TYLENOL) 325 mg tablet Take 650 mg by mouth every 6 hours as needed. COMPOUNDED PRESCRIPTION Shackelford Antiseptic Powder (carbolic acid; zinc oxide) as needed per Dr. Arleen Burdick multivitamin ORAL tablet Take 1 tablet by mouth twice daily. No current facility-administered medications for this visit. FAMILY HISTORY Problem Relation Age of Onset - other (Celiac disease) Mother Cancer at 87 y/o - Cancer Father PROSTATE ?KIDNEYBLADDER,? at 7o's - Cancer Paternal Grandfather MELONOMA - Colon Cancer Maternal Aunt - Hypertension Sister - Cancer Other LYMPHOBLASTOMA GREAT GRANDMOTHER PATERNAL - Colon Cancer Maternal Grandmother - other (Heart / Stroke) Maternal Grandmother AND CANCER OF STOMACH - Breast Cancer Maternal Aunt diagnosed in her 90's Social History Marital status: Spouse name: charmaine Years of education: 13.5 Number of children: 3 Occupational History Occupation Employer Comment retired [employer]* Social History Main Topics Smoking status: Never Smoker Smokeless tobacco: Never Used Alcohol use: Yes 6.0 oz/week Comment: occasionally rare Drug use: No Sexual activity: Not Currently Partners with: Male EXAM: BP 128/66 (BP Site: Left Arm, BP Position: Sitting, BP Cuff Size: Regular Adult) Pulse 74 Resp 12 Wt 80.3 kg (177 lb) BMI 30.38 kg/m? PHYSICAL EXAM: General Appearance: Well appearing, alert, in no acute distress, well-hydrated, well nourished.. Skin: Skin color, texture, turgor normal, no suspicious rashes or lesions. Head: Normocephalic, no masses, lesions, tenderness or abnormalities. Eyes: Anicteric sclera. Extraocular movements are intact. . Neck: Supple, no adenopathy; thyroid symmetric, normal size, no bruits. Lungs: Lungs clear to auscultation. No wheezing, rhonchi, rales. Heart: RRR without murmur, gallop, or rubs. No ectopy. Abdomen: Abdomen soft, non-tender. Bowel sounds normal. No masses, organomegaly. Extremities: No deformities, edema, skin discoloration, clubbing or cyanosis. Good capillary refill. Neurologic: Gait normal. ASSESSMENT/PLAN: 1. Essential hypertension - ICD9: 401.9, ICD10: I10 (primary diagnosis) - good control - Continue current medication(s) - Goal of BP <130/80 2. Hypothyroidism, unspecified type - ICD9: 244.9, ICD10: E03.9 - Instructed patient on importance of taking on an empty stomach either first thing in the morning or at bedtime. 3. 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 Continue to follow with Dr. Chavarria. 4. Mixed hyperlipidemia - ICD9: 272.2, ICD10: E78.2 - good control - Encouraged following a low fat, low cholesterol diet. 5. Prediabetes - ICD9: 790.29, ICD10: R73.03 Watch diet/exercise. Discussed insulin resistance. Discussed treatment plan and patient voices understanding. Patient's questions answered appropriately. Medications and potential side effects were discussed and patient voices understanding. Return to the office as scheduled or as needed for worsening/no improvement. Olga Gupta APRN.DARYL Gupta APRN.DARYL 12/01/2017 2:22 PM S[address] 1. Call Dr[address] Chavarria. 2. Keep upcoming appt with Dr. Scott. 3. Return sooner if needed. Referring Provider: PAULO SCOTT [[id number]] Allergies As of Date: 12/01/2017 Noted Allergy Reaction ekg patches [Other] 02/20/2006 4 - Hives Comments: skin gets red and raw needs hypoalergetic patches also any patch used for testing AGGRENOX (ASPIRIN-DIPYRIDAMOLE) 05/27/2011 14 - Other: See Comments Comments: Headache BACTRIM (SULFAMETHOXAZOLE-TRIMETH*03/20/2006 Comments: dizzy, redness, face flushed BETADINE (POVIDONE-IODINE) 11/04/2006 2 - Rash CETACAINE (RTDGRWMW-FIKFNINCUC-WU*09/11/2012 14 - Other: See Comments Comments: excessive mucous production cigarettes [Other] 02/22/2010 12 - Shortness of Breath Comments: Hard to breath/has a sensitivity not an allergy CODEINE 03/07/2006 5 - Intolerance CORTISONE 12 - Shortness of Breath Comments: injection was given and swelled and had trouble breathing DEPOMEDROL [Other] 03/07/2006 7 - Swelling Comments: FACE SWELLED AFTER CORTISONE SHOT IN KNEE DETROL (TOLTERODINE TARTRATE) 03/07/2006 5 - Intolerance Comments: HEAD ACHE ,DRY MOUTH DITROPAN (OXYBUTYNIN CHLORIDE) 03/07/2006 5 - Intolerance Comments: DIZZY,SUN SENSITIVE LATEX 11/03/2009 2 - Rash MECLIZINE 03/07/2006 7 - Swelling Comments: URINARY RETENTION,FACE FELT FUNNY METOPROLOL 04/24/2006 8 - GI Upset Comments: headache.itching.hives. MYRBETRIQ (MIRABEGRON) 12/26/2014 14 - Other: See Comments Comments: elevated BP paper tape [Other] 08/15/2006 2 - Rash PREVACID (LANSOPRAZOLE) 03/07/2006 8 - GI Upset Comments: GAS,BURPING HEADACHE PRILOSEC (OMEPRAZOLE MAGNESIUM) 6 - Diarrhea TIZANIDINE 03/24/2014 14 - Other: See Comments Comments: increased pain ZELNORM (TEGASEROD HYDROGEN RACHELL*03/07/2006 4 - Hives Date Reviewed: 12/01/2017 Reviewed by: Rodolfo Sheikh Commercial Lawn Specialist - Fully Assessed Reason for Visit: F/U 3 Month [443] Primary Visit Diagnosis:Essential hypertension [I10] Other Visit Diagnoses:Hypothyroidism, unspecified type [E03.9] 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 ESOMEPRAZOLE MAGNESIUM 20 MG * Take 1 capsule by mouth once * GABAPENTIN 100 MG CAPSULE Take 3 capsules at bedtime (D* Patient taking differently: 300 mg daily at bedtime. Take* COMPOUNDED PRESCRIPTION SEMI ELECTRIC HOSPITAL BED AN* HYDROCODONE 5 MG-ACETAMINOPHE* Take 1 by mouth at bedtime POVIDONE IODINE 2% IN 0.9% NA* Irrigate 2 Drops as instructe* COMPOUNDED PRESCRIPTION KNEE HIGH COMPRESSION STOCKIN* ACETAMINOPHEN 325 MG TABLET Take 650 mg by mouth every 6 * COMPOUNDED PRESCRIPTION Shackelford Antiseptic Powder (c* * MULTIVITAMIN TABLET Take 1 tablet by mouth twice * Problem List As Of Date 12/01/2017 Noted Resolved Essential hypertension [I10] Acute, but ill-defined, cerebrovascular disease*INVALID FOR*12/28/2016 Priority: B More... Mixed hyperlipidemia [E78.2] Coronary atherosclerosis [I25.10] 1) Laparotomy 2) Joann gastroplasty 3) Wedge t* 06/30/2011 Priority: A More... IRRITABLE COLON [K58.9] DYSMETABOLIC SYNDROME X [E88.81] Hypothyroidism [E03.9] Priority: D More... DVT (deep venous thrombosis) ([facility]) [I82.409] INVALID FOR*03/04/2017 Priority: G More... Anemia [D64.9] INVALID FOR* 1) Laparotomy 2) Joann gastroplasty 3) Wedge * Priority: A More... Obesity [E66.9] Discharge planning [Z71.89] INVALID FOR*09/03/2011 Priority: G More... Other acute postoperative pain [G89.18] INVALID FOR*09/03/2011 Priority: B More... 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 OAB (overactive bladder) [N32.81] INVALID FOR* Reversed peristalsis [R19.2] INVALID FOR* More... Stress incontinence [N39.3] INVALID FOR* Urge incontinence [N39.41] INVALID FOR* Frequency of urination [R35.0] INVALID FOR* Nocturia [R35.1] INVALID FOR* Kidney stone [N20.0] INVALID FOR* Anxiety [F41.9] INVALID FOR* Marital conflict [Z63.0] INVALID FOR* Cephalalgia [R51] INVALID FOR* IFG (impaired fasting glucose) [R73.01] INVALID FOR* Lipoma of right upper extremity [D17.21] INVALID FOR* Vertigo [R42] INVALID FOR* Falls, subsequent encounter [W19.XXXD] INVALID FOR* Acute pain of left shoulder [M25.512] INVALID FOR* Neck pain, chronic [M54.2, G89.29] INVALID FOR* Other instructions from your clinician: 1. Call Dr. Chavarria. 2. Keep upcoming appt with Dr. Scott. 3. Return sooner if needed. Medications Discontinued During This Encounter diclofenac sodium (VOLTAREN) 1 % top* 100 g 5 07/01/2017 12/01/2017 Route: TOPICAL Sig: Apply 2 g to affected area four times daily. Disc: Not on Formulary diclofenac sodium (PENNSAID) 20 mg/g* 02/24/2017 12/01/2017 Class: Med Update Sig: Prescribed by Dr. Paz Disc: Cost of medication propylene glycol-glycerin (SOOTHE) 0* 0 02/24/2017 12/01/2017 Class: Med Update Route: BOTH EYES Sig: Use 2 Drops in both eyes as needed. Disc: Course of therapy completed Clobetasol Propionate 0.05 % lotn 12/01/2017 Class: Historical Med Route: TOPICAL Sig: Apply to affected area. Disc: Reason for discontinue is not on file. docusate sodium (COLACE) 100 mg caps* 0 08/19/2014 12/01/2017 Class: OTC Route: ORAL Sig: Take 1 capsule by mouth twice daily as needed for Constipation. Disc: Other Cosign accepted by PAULO SCOTT MD[[id number]] on 08/19/2014 1:05 PM Encounter Status:Closed by OLGA GUPTA CNP on 12/01/17 PROGRESS Observed: 12/01/2017 Status: COMPLETED Source: [place] 1:36 PM [facility] REPOSITORY O ID: [id number] Author: Olga Winter) Candy Service: (none) Author Type: Nurse Practitioner Type: Progress Notes Filed: 12/01/2017 3:22 PM Note Text: This is a 67 year old female who presents today with: Patient presents with: F/U 3 Month HISTORY OF PRESENT ILLNESS: Keshia Rojas is a 67 year old female. Patient presents with: F/U 3 Month HTN Controlled. No problems with medications. No chest pain. Notices palpitations -- refers when her blood pressure is up -- when she is dealing with people at work. Thyroid Normal recent TSH. Takes daily on empty stomach. + diarrhea/constipation. + dry skin. + thinning hair. GERD/Sarmiento's esophagus Takes nexium. Trouble eating -- foods get stuck. Trying to get back in with [facility]. Last EGD was two years ago. PAD Had seen vascular. Was going to have to need a toenail removed. Refers that she started wearing a diabetic socks, and this is now improved. 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 (Dr. Charlton) - Cataracts, both eyes - Coronary atherosclerosis of unspecified type of vessel, douglas or graft minimal plaque on cath 08/06/2006 - DVT (deep venous thrombosis) (HCC) 2010 Right leg OCTOBER 2009 NOT TREATED - Dysmetabolic syndrome X - Esophageal reflux - Fibromyalgia better with Lyrica - Floppy eyelid syndrome - Hiatal hernia Large when seen on EGD 10/2010 at [facility] (Dr. 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 Chavarria - DANDC, DIAG AND/OR THERAPEUTIC 07/24/2005 Dilation AND curettage - EXC TUMOR SOFT TISS FOREARM AND/WRIST SUBQ 3+CM Right 11/04/15 Exc. right forearm lipoma - HYSTEROSCOPY, DIAGNOSTIC (SEPARATE 07/24/2005 Hysteroscopy - INTRO. 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 and Short esophagus - REMOVE PART, LUMBAR VERTEBRAE 01/2014 - REMOVE TONSILS/ADENOIDS,<12 Y/O 1954 T/A (under age 12 years) - RETRIEV INTRAVASC FOREGN BODY --15 FILTER REMOVAL - RT HEART CATH 2006 x 2 ALLERGIES Ekg Patches [Other]; Aggrenox [Aspirin-Dipyridamole]; Bactrim [Sulfamethoxazole-Trimethoprim]; Betadine [Povidone-Iodine]; Cetacaine [Anmnhacp-Jqisyamixl-Oqmovaavrk]; Cigarettes [Other]; Codeine; Cortisone; Depomedrol [Other]; Detrol [Tolterodine Tartrate]; Ditropan [Oxybutynin Chloride]; Latex; Meclizine; Metoprolol; Myrbetriq [Mirabegron]; Paper Tape [Other]; Prevacid [Lansoprazole]; Prilosec [Omeprazole Magnesium]; Tizanidine; Zelnorm [Tegaserod Hydrogen Maleate] MEDICATIONS Current Outpatient Prescriptions: diazePAM (VALIUM) 5 mg tablet Take 1 tablet by mouth twice daily as needed (vertigo or anxiety) for up to 90 days. lisinopril (ZESTRIL, PRINIVIL) 10 mg tablet Take 1 tablet by mouth once daily. levothyroxine (SYNTHROID) 50 mcg tablet Take 1 tablet by mouth once daily. diclofenac sodium (VOLTAREN) 1 % topical gel Apply 2 g to affected area four times daily. diclofenac sodium (PENNSAID) 20 mg/gram /actuation(2 %) sopm Prescribed by Dr. Paz (Patient not taking: Reported on 09/08/2017 ) white petrolatum 94% - mineral oil 3% 94-3 % oint [facility] propylene glycol-glycerin (SOOTHE) 0.6-0.6 % Use 2 Drops in both eyes as needed. esomeprazole (NEXIUM 24HR) 20 mg capsule Take 1 capsule by mouth once daily. Needs Namebrand over the counter, not generic. Clobetasol Propionate 0.05 % lotn Apply to affected area. gabapentin (NEURONTIN) 100 mg capsule Take 3 capsules at bedtime (Dr. Paz) (Patient taking differently: 300 mg daily at bedtime. Take 3 capsules at bedtime (Dr. 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 docusate sodium (COLACE) 100 mg capsule Take 1 capsule by mouth twice daily as needed for Constipation. (Patient not taking: Reported on 09/08/2017 ) Compression Knee Highs KNEE HIGH COMPRESSION STOCKINGS 20- 30 MM. DX: EDEMA 782.3, venous insuffiency 459.81(Futuro therapeutic open heel and open toe if available) acetaminophen (TYLENOL) 325 mg tablet Take 650 mg by mouth every 6 hours as needed. COMPOUNDED PRESCRIPTION Shackelford Antiseptic Powder (carbolic acid; zinc oxide) as needed per Dr. Arleen Burdick multivitamin ORAL tablet Take 1 tablet by mouth twice daily. No current facility-administered medications for this visit. FAMILY HISTORY Problem Relation Age of Onset - other (Celiac disease) Mother Cancer at 87 y/o - Cancer Father PROSTATE ?KIDNEYBLADDER,? at 7o's - Cancer Paternal Grandfather MELONOMA - Colon Cancer Maternal Aunt - Hypertension Sister - Cancer Other LYMPHOBLASTOMA GREAT GRANDMOTHER PATERNAL - Colon Cancer Maternal Grandmother - other (Heart / Stroke) Maternal Grandmother AND CANCER OF STOMACH - Breast Cancer Maternal Aunt diagnosed in her 90's Social History Marital status: Spouse name: charmaine Years of education: 13.5 Number of children: 3 Occupational History Occupation Employer Comment retired [employer]* Social History Main Topics Smoking status: Never Smoker Smokeless tobacco: Never Used Alcohol use: Yes 6.0 oz/week Comment: occasionally rare Drug use: No Sexual activity: Not Currently Partners with: Male EXAM: BP 128/66 (BP Site: Left Arm, BP Position: Sitting, BP Cuff Size: Regular Adult) Pulse 74 Resp 12 Wt 80.3 kg (177 lb) BMI 30.38 kg/m? PHYSICAL EXAM: General Appearance: Well appearing, alert, in no acute distress, well-hydrated, well nourished.. Skin: Skin color, texture, turgor normal, no suspicious rashes or lesions. Head: Normocephalic, no masses, lesions, tenderness or abnormalities. Eyes: Anicteric sclera. Extraocular movements are intact. . Neck: Supple, no adenopathy; thyroid symmetric, normal size, no bruits. Lungs: Lungs clear to auscultation. No wheezing, rhonchi, rales. Heart: RRR without murmur, gallop, or rubs. No ectopy. Abdomen: Abdomen soft, non-tender. Bowel sounds normal. No masses, organomegaly. Extremities: No deformities, edema, skin discoloration, clubbing or cyanosis. Good capillary refill. Neurologic: Gait normal. ASSESSMENT/PLAN: 1. Essential hypertension - ICD9: 401.9, ICD10: I10 (primary diagnosis) - good control - Continue current medication(s) - Goal of BP <130/80 2. Hypothyroidism, unspecified type - ICD9: 244.9, ICD10: E03.9 - Instructed patient on importance of taking on an empty stomach either first thing in the morning or at bedtime. 3. 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 Continue to follow with Dr. Chavarria. 4. Mixed hyperlipidemia - ICD9: 272.2, ICD10: E78.2 - good control - Encouraged following a low fat, low cholesterol diet. 5. Prediabetes - ICD9: 790.29, ICD10: R73.03 Watch diet/exercise. Discussed insulin resistance. Discussed treatment plan and patient voices understanding. Patient's questions answered appropriately. Medications and potential side effects were discussed and patient voices understanding. Return to the office as scheduled or as needed for worsening/no improvement. Olga Gupta APRN.FLOW TRADER HEMOGLOBIN A1C Collected: 11/24/2017 Status: F Source: [place] 7:48 AM [facility] REPOSITORY TYPE CODE TESTS RESULT OUT OF REFERENCE UNITS RANGE LAB HGBA1C 4.3-5.6 % High Hemoglobin A1c 5.9 LAB HBA0 mg/dL Est. Average Glucose 123 Result Comment: eAG: (Estimated average glucose) is a calculated value from HgbA1c and is patient account representative of the average blood glucose level in the last 2-3 month period. Performed By: #### HBA1C #### [facility] [address] [place], [place] [address] COMP METABOLIC PANEL Collected: 11/24/2017 Status: F Source: [place] 7:47 AM [facility] REPOSITORY TYPE CODE TESTS RESULT OUT OF REFERENCE UNITS RANGE LAB TP 6.3-8.0 g/dL Protein, Total 6.3 LAB ALB 3.9-4.9 g/dL Low Albumin 3.8 LAB CA 8.5-10.2 mg/dL Calcium, Total 9.5 LAB TBIL 0.2-1.3 mg/dL Bilirubin, Total 0.4 LAB ALKP 32-117 U/L Alkaline Phosphatase 62 LAB AST 13-35 U/L AST 23 LAB GLU 74-99 mg/dL Glucose 96 Result Comment: The [place] Diabetes Association (ADA) provides guidance for cutoff values for fasting glucose and random glucose. The ADA defines fasting as no caloric intake for at least 8 hours. Fas ting plasma glucose results between 100 to 125 mg/dL indicate increased risk for diabetes (prediabetes). Fasting plasma glucose results greater than or equal to 126 mg/dL meet the criteria for diagnosis of diabetes. In the absence of unequivocal hyperglycemia, results should be confirmed by repeat testing. In a patient with classic symptoms of hyperglycemia or hyperglycemic crisis, random plasma glucose results greater than or equal to 200 mg/dL meet the criteria for diagnosis of diabetes. Reference: Standards of Medical Care in Diabetes 2016, [place] Diabetes Association. Diabetes Care. 2016.39(Suppl 1). LAB BUN 7-21 mg/dL BUN 16 LAB CRET 0.58-0.96 mg/dL Creatinine 0.79 LAB NA 136-144 mmol/L Sodium 141 LAB K 3.7-5.1 mmol/L Potassium 4.3 LAB CL 97-105 mmol/L Chloride 103 LAB CO2 22-30 mmol/L CO2 26 LAB AGAP 9-18 mmol/L Anion Gap 12 LAB ALT 7-38 U/L ALT 21 LAB GFRAA eGFR- Amer. >60 LAB GFRNAA . eGFR-All Other Races >60 Result Comment: eGFR (Estimated GFR) Units of measure: mL/min/1.73 meters squared eGFR is derived from the reexpressed MDRD Study equation using the following parameters: serum creatinine, age, gender and race. The creatinine assay has been calibrated to be traceable to IDMS. An eGFR <60 mL/min/1.73m2 for >3 months is consistent with chronic kidney disease. Refer to KDOQI guidelines for clinical interpretation. In patients with unstable renal function, e.g. those with acute kidney injury, the eGFR may not accurately reflect actual GFR. Performed By: #### CMP, LIPB, TSH, FREET3, FT4, CBCDIF #### [facility] [address] [place], [place] [address] LIPID PANEL, BASIC Collected: 11/24/2017 Status: F Source: [place] 7:47 AM [facility] REPOSITORY TYPE CODE TESTS RESULT OUT OF REFERENCE UNITS RANGE LAB CHOL <200 mg/dL Cholesterol 186 Result Comment: <200 mg/dL, Desirable 200-239 mg/dL, Borderline high >239 mg/dL, High LAB TRIGLY <150 mg/dL Triglyceride 104 Result Comment: <150 mg/dL, Normal 150-199 mg/dL, Borderline high 200-499 mg/dL, High >499 mg/dL, Very high LAB HDL >39 mg/dL HDL-Cholesterol 53 Result Comment: 40-59 mg/dL, Acceptable >59 mg/dL, High: Negative risk factor for coronary heart disease <40 mg/dL, Low: Positive risk factor for coronary heart disease LAB LDL <100 mg/dL LDL-Cholesterol High 112 Result Comment: <100 mg/dL, Optimal 100-129 mg/dL, Near optimal/above optimal 130-159 mg/dL, Borderline high 160-189 mg/dL, High >189 mg/dL, Very high Secondary prevention optimal LDL Cholesterol levels are recommended to be < 70 mg/dL LAB NONHDL <130 mg/dL Non HDL High Cholesterol 133 Result Comment: <130 mg/dL, Optimal 130-159 mg/dL, Near optimal/above optimal 160-189 mg/dL, Borderline high 190-219 mg/dL, High >219 mg/dL, Very high Secondary prevention optimal non HDL Cholesterol levels are recommended to be < 100 mg/dL LAB FT hrs Fasting Time 12 LAB VLDL <30 mg/dL VLDL Cholesterol 21 LAB TCHDL <5.10 TC:HDL Ratio 3.51 LAB LDLHDL <2.54 LDL:HDL Ratio 2.11 Result Comment: Reference: 1. National Cholesterol Education Program ATP III Guideline At-A-Glance Quick Desk Reference: National Heart, Lung, and Blood [place]. National Institutes of Health. 2001: NIH Publication No. 01-3305. 2. An International Atherosclerosis Society position paper: global recommendations for the management of dyslipidemia: executive summary, Atherosclerosis. 2014: 232(2):410-413. Performed By: #### CMP, LIPB, TSH, FREET3, FT4, CBCDIF #### [place] [address] TSH Collected: 11/24/2017 Status: F Source: [place] 7:47 AM [facility] REPOSITORY TYPE CODE TESTS RESULT OUT OF RANGE REFERENCE UNITS LAB TSH 0.400-5.500 uU/mL TSH 3.120 Performed By: #### CMP, LIPB, TSH, FREET3, FT4, CBCDIF #### [place] [address] FREE T3 Collected: 11/24/2017 Status: F Source: [place] 7:47 AM [facility] REPOSITORY TYPE CODE TESTS RESULT OUT OF RANGE REFERENCE UNITS LAB FREET3 2.3-4.1 pg/mL Free T3 2.8 Performed By: #### CMP, LIPB, TSH, FREET3, FT4, CBCDIF #### [place] [address] FREE T4 Collected: 11/24/2017 Status: F Source: [place] 7:47 AM [facility] REPOSITORY TYPE CODE TESTS RESULT OUT OF RANGE REFERENCE UNITS LAB FT4 0.9-1.7 ng/dL Free T4 1.1 Performed By: #### CMP, LIPB, TSH, FREET3, FT4, CBCDIF #### [place] [address] CBC AND DIFFERENTIAL Collected: 11/24/2017 Status: F Source: [place] 7:47 AM [facility] REPOSITORY TYPE CODE TESTS RESULT OUT OF REFERENCE UNITS RANGE LAB WBC 3.70-11.00 k/uL WBC 8.76 LAB RBC 3.90-5.20 m/uL RBC 4.74 LAB HGB 11.5-15.5 g/dL Hemoglobin 14.6 LAB HCT 36.0-46.0 % High Hematocrit 46.8 LAB MCV 80.0-100.0 fL MCV 98.7 LAB MCH 26.0-34.0 pG MCH 30.8 LAB MCHC 30.5-36.0 g/dL MCHC 31.2 LAB RDWCV 11.5-15.0 % RDW-CV 13.3 LAB PLTCT 150-400 k/uL Platelet Count 318 LAB MPV 9.0-12.7 fL MPV 9.8 LAB ANEUT % Neut% 41.5 LAB AANEUT 1.45-7.50 k/uL Abs Neut 3.61 LAB ALYMP % Lymph% 43.9 LAB AALYMP 1.00-4.00 k/uL Abs Lymph 3.85 LAB AMONO % [place]% 7.8 LAB AAMONO <0.87 k/uL Abs [place] 0.68 LAB AEOS % Eosin% 5.7 LAB AAEOS <0.46 k/uL Abs High Eosin 0.50 LAB ABASO % Baso% 1.1 LAB AABASO <0.11 k/uL Abs Baso 0.10 LAB AUNRBC 0 /100 WBC NRBCs 0.0 LAB ABNRBC <0.01 k/uL Absolute nRBC <0.01 LAB DTYP DTYPE Auto Diff Performed By: #### CMP, LIPB, TSH, FREET3, FT4, CBCDIF #### [facility] [address] [place], [place] [address] ALBUMIN/CREAT RATIO Collected: 11/24/2017 Status: F Source: [place] 7:40 AM [facility] REPOSITORY TYPE CODE TESTS RESULT OUT OF REFERENCE UNITS RANGE LAB UCRR 20-300 mg/dL 91.7 Creatinine,Ur ine,Ran LAB UALBR 0.0-23.0 mg/L <12.0 Albumin Urine Random LAB UALBCR 0-30 mg/g Not Albumin/Creat calculated Ratio Performed By: #### UACR #### [facility] [address] [place], [place] [address] CNPTOUTREACH Observed: 11/18/2017 Status: COMPLETED Source: [place] 12:00 [facility] REPOSITORY Patient Outreach (FAMPST) CRYSTALKESHIA ([id number]) 1950 F Date Time Provider Department 11/18/17 PAULO SCOTT FAMPST During your visit today, we recorded the following information about you: Allergies As of Date: 11/18/2017 Noted Allergy Reaction ekg patches [Other] 02/20/2006 4 - Hives Comments: skin gets red and raw needs hypoalergetic patches also any patch used for testing AGGRENOX (ASPIRIN-DIPYRIDAMOLE) 05/27/2011 14 - Other: See Comments Comments: Headache BACTRIM (SULFAMETHOXAZOLE-TRIMETH*03/20/2006 Comments: dizzy, redness, face flushed BETADINE (POVIDONE-IODINE) 11/04/2006 2 - Rash CETACAINE ([id number]*09/11/2012 14 - Other: See Comments Comments: excessive mucous production cigarettes [Other] 02/22/2010 12 - Shortness of Breath Comments: Hard to breath/has a sensitivity not an allergy CODEINE 03/07/2006 5 - Intolerance CORTISONE 12 - Shortness of Breath Comments: injection was given and swelled and had trouble breathing DEPOMEDROL [Other] 03/07/2006 7 - Swelling Comments: FACE SWELLED AFTER CORTISONE SHOT IN KNEE DETROL (TOLTERODINE TARTRATE) 03/07/2006 5 - Intolerance Comments: HEAD ACHE ,DRY MOUTH DITROPAN (OXYBUTYNIN CHLORIDE) 03/07/2006 5 - Intolerance Comments: DIZZY,SUN SENSITIVE LATEX 11/03/2009 2 - Rash MECLIZINE 03/07/2006 7 - Swelling Comments: URINARY RETENTION,FACE FELT FUNNY METOPROLOL 04/24/2006 8 - GI Upset Comments: headache.itching.hives. MYRBETRIQ (MIRABEGRON) 12/26/2014 14 - Other: See Comments Comments: elevated BP paper tape [Other] 08/15/2006 2 - Rash PREVACID (LANSOPRAZOLE) 03/07/2006 8 - GI Upset Comments: GAS,BURPING HEADACHE PRILOSEC (OMEPRAZOLE MAGNESIUM) 6 - Diarrhea TIZANIDINE 03/24/2014 14 - Other: See Comments Comments: increased pain ZELNORM (TEGASEROD HYDROGEN RACHELL*03/07/2006 4 - Hives Date Reviewed: 09/08/2017 Reviewed by: Tristen Kelsey RN - Fully Assessed Visit Diagnosis:Medication management [Z79.899] Order(s):ALBUMIN/CREAT RATIO RND UR [SQUACR] Order #: [id number] FUTURE HGB A1C [[id number]] Order #: [id number] FUTURE Prescriptions as of 11/18/2017 Sig: LISINOPRIL 10 MG TABLET Take 1 tablet by mouth once d* LEVOTHYROXINE 50 MCG TABLET Take 1 tablet by mouth once d* X DIAZEPAM 5 MG TABLET Take 1 tablet by mouth twice * X DICLOFENAC 1 % TOPICAL GEL Apply 2 g to affected area fo* WHITE PETROLATUM-MINERAL OIL * Dr. Lynne [facility] ESOMEPRAZOLE MAGNESIUM 20 MG * Take 1 capsule by mouth once * X DICLOFENAC 20 MG/GRAM/ACTUATI* Prescribed by Dr. Paz X PROPYLENE GLYCOL-GLYCERIN 0.6* Use 2 Drops in both eyes as n* X CLOBETASOL 0.05 % LOTION Apply to affected area. GABAPENTIN 100 MG CAPSULE Take 3 capsules at bedtime (D* Patient taking differently: 300 mg daily at bedtime. Take* COMPOUNDED PRESCRIPTION [facility] AN* HYDROCODONE 5 MG-ACETAMINOPHE* Take 1 by mouth at bedtime POVIDONE IODINE 2% IN 0.9% NA* Irrigate 2 Drops as instructe* X DOCUSATE SODIUM 100 MG CAPSULE Take 1 capsule by mouth twice* COMPOUNDED PRESCRIPTION KNEE HIGH COMPRESSION STOCKIN* ACETAMINOPHEN 325 MG TABLET Take 650 mg by mouth every 6 * COMPOUNDED PRESCRIPTION Shackelford Antiseptic Powder (c* * MULTIVITAMIN TABLET Take 1 tablet by mouth twice * Problem List As Of Date 11/18/2017 Noted Resolved Essential hypertension [I10] Acute, but ill-defined, cerebrovascular disease*INVALID FOR*12/28/2016 Priority: B More... Mixed hyperlipidemia [E78.2] Coronary atherosclerosis [I25.10] 1) Laparotomy 2) Joann gastroplasty 3) Wedge t* 06/30/2011 Priority: A More... IRRITABLE COLON [K58.9] DYSMETABOLIC SYNDROME X [E88.81] Hypothyroidism [E03.9] Priority: D More... DVT (deep venous thrombosis) (HCC) [I82.409] INVALID FOR*03/04/2017 Priority: G More... Anemia [D64.9] INVALID FOR* 1) Laparotomy 2) Joann gastroplasty 3) Wedge * Priority: A More... Obesity [E66.9] Discharge planning [Z71.89] INVALID FOR*09/03/2011 Priority: G More... Other acute postoperative pain [G89.18] INVALID FOR*09/03/2011 Priority: B More... 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 OAB (overactive bladder) [N32.81] INVALID FOR* Reversed peristalsis [R19.2] INVALID FOR* More... Stress incontinence [N39.3] INVALID FOR* Urge incontinence [N39.41] INVALID FOR* Frequency of urination [R35.0] INVALID FOR* Nocturia [R35.1] INVALID FOR* Kidney stone [N20.0] INVALID FOR* Anxiety [F41.9] INVALID FOR* Marital conflict [Z63.0] INVALID FOR* Cephalalgia [R51] INVALID FOR* IFG (impaired fasting glucose) [R73.01] INVALID FOR* Lipoma of right upper extremity [D17.21] INVALID FOR* Vertigo [R42] INVALID FOR* Falls, subsequent encounter [W19.XXXD] INVALID FOR* Acute pain of left shoulder [M25.512] INVALID FOR* Neck pain, chronic [M54.2, G89.29] INVALID FOR* Encounter Status:Closed by CIRILO PRODUSER on 12/26/17 URINE DRUG SCREEN Collected: 11/13/2017 Status: F Source: [place] (VISTA) 11:39 AM [facility] REPOSITORY Order Comment: Comments: [id number] urine run lowest test List of Drugs Taken or Suspected? UNK TYPE CODE TESTS RESULT OUT OF RANGE REFERENCE UNITS LAB L505.0075 TO BE Normal CONFIRMED Result Comment: CONFIRMATORY TESTING FOR ALL POSITIVE URINE DRUG SCREEN RESULTS WILL ONLY BE SENT OUT UPON PHYSICIAN ORDER. VISTA Urine Drug Screen methods provide only preliminary analytical test results. A more specific alternate chemical method must be used in order to obtain a confirmed analytical result. Gas chromatography/mass spectrometery (GC/MS) is the preferred confirmatory method. Clinical consideration and professional judgement should be applied to any drug of abuse test result, particularly when preliminary positive results are used. URINE TCA TESTING MUST BE ORDERED SEPARATELY. USE TEST MNEMONIC: [facility] LAB L505.5005 VISTA UDS PH 6 Normal LAB L505.5015 <1000 ng/mL AMPHETAMINES Normal NEGATIVE LAB L505.5025 < 200 ng/mL BARBITIURATES Normal NEGATIVE LAB L505.5035 < 200 High ng/mL BENZODIAZIPINE POSITIVE LAB L505.5045 < 300 ng/mL COCAINE Normal NEGATIVE LAB L505.5055 < 500 ng/mL ECSTACY Normal NEGATIVE LAB L505.5065 < 300 ng/mL METHADONE Normal NEGATIVE LAB L505.5075 < 300 High ng/mL OPIATES POSITIVE LAB L505.5085 < 25 ng/mL PCP Normal NEGATIVE LAB L505.5095 < 50 ng/mL THC Normal NEGATIVE Performed By: #### L505.5000 #### [facility] [address] [place], [address] MISCELLANEOUS LAB Collected: 11/13/2017 Status: F Source: [place] PROCEDURE 11:39 AM [facility] REPOSITORY Order Comment: Comments: [id number] urine run lowest test Test(s) Ordered: [id number] urine run lowest test TYPE CODE TESTS RESULT OUT OF RANGE REFERENCE UNITS LAB L801.1541 Normal [facility] TEST Result Comment: [id number] 6+OXYCODONE-BUND (ng/mL) DRUG RESULT SCREEN CUTOFF ____ Amphetamines,Urine Negative ng/mL 1000 Amphetamine test includes Amphetamine and Methamphetamine. Barbiturates Negative ng/mL 200 Benzodiazepines POSITIVE ng/mL 100 Please Note; Confirmation performed by Mass Spectrometry Nordiazepam Positive Nordiazepam Confirm 210 ng/mL 100 Oxazepam Positive Oxazepam Confirm 396 ng/mL 100 Flurazepam Negative 100 Lorazepam Negative 100 Alprazolam Negative 100 Clonazepam Negative 100 Temazepam Positive Temazepam Confirm 207 ng/mL 100 Triazolam Negative 100 Midazolam Negative 100 Cannabinoid Negative ng/mL 20 Cocaine (Metab) Negative ng/mL 300 Opiates Negative ng/mL 300 Opiates test includes Codeine, Morphine, Hydromorphone, Hydrocodone. Oxycodone/Oxymorphone,Urine Negative ng/mL 300 Test includes Oxydodone and Oxymorphone. TESTING PERFORMED AT [facility]. ORIGINAL REPORT ON FILE IN LAB CONTAINS ADDITIONAL TEST SITE INFORMATION. Performed By: #### L801.1541 #### [facility] [address] [place], [address] PROGRESS Observed: 10/20/2017 Status: COMPLETED Source: [place] 12:54 PM [facility] [place] REPOSITORY [facility] ID: [id number] Author: Olivier Tejeda Service: (none) Author Type: Physical Therapist Type: Progress Notes Filed: 10/20/2017 1:05 PM Note Text: Episode Visit Count: 4 Therapist That Will Oversee The Plan Of Care: Olivier Tejeda Start of Care Date: 09/16/17 Plan of Care Certification Date: 09/16/17 RE[facility]AB[facility]TS [facility]ERAPY PHYSICAL THERAPY DISCONTINUANCE OF CARE PLAN OF CARE UPDATE: Assessment: Keshia Rojas is discontinued from Physical Therapy services due to goal achievement.. Patient was seen for 4 visits from Start of Care Date: 09/16/17 to 10/20/2017 and treatment included: Therapeutic exercise, Neuromuscular re-education, Manual therapy, Self- shelter management and Patient/Family/Caregiver Education. Patient has seen significant improvements in neck pain, back pain, walking tolerance with no falls, walking speed, and strength/endurance. Patient doing well currently and jointly decided patient is appropriate to continue exercises on own at home. Goals for Episode of Care: created on 09/16/17 through 11/17/17 Independent in a Home Exercise Program. Met Patient will decrease pain rating by 2 points to meet minimal clinical important difference for numeric pain rating scale. Met Restore pain free cervical ROM to WNL in all ranges to allow for improved functional mobility. Met Patient will improve his/her AM-PAC T-scale score by 4 points to indicate a Minimal Clinical Important Difference. Not met Patient will report no falls. Met G CODE REPORTING Based on clinical assessment and the score on the AM-PAC Scale Score Assessment Tool, the G code and corresponding severity modifiers are documented below. Evaluation: 09/22/2017 Current Status: Changing AND Maintaining Body Position: G8981 20-39% impaired Goal Status: Changing AND Maintaining Body Position: G8982 20-39% impaired Discharge: 10/14/2017 Goal Status: Changing AND Maintaining Body Position: G8982 20-39% impaired Discharge: Changing AND Maintaining Body Position: G8983 20-39% impaired SUBJECTIVE: Pt still has difficulty standing unassisted. She is wearing a back brace to work, and she is either holding onto something, has a cane, or uses the wheeled walker with longer distances. She has noticed decreased frequency with the pain down her arm into the hand, and feels more confident on her feet. No falls since first visit. Pain is also more intermittent. Pain Score: 5/10 Pain Location: Back (everywhere) Description: Dull Frequency: Intermittent OBJECTIVE MEASURES WITH LEVEL OF FUNCTION: Cervical Spine AROM Cervical Flexion (degrees)?: 50 Degrees Cervical Extension (degrees)?: 50 Degrees Cervical Side-Bend Right (degrees): 35 Degrees Cervical Side-Bend Left (degrees)?: 35 Degrees Cervical Rotation Right (degrees)?: 71 Degrees Cervical Rotation Left (degrees)?: 81 UE and Cervical Strength R Checker In (Position 2) (lbs): 58 L Checker In (Position 2) (lbs): 58 30 Second Sit to Stand Test (reps): 16 reps Timed Up and Go (sec): 6.69 sec TREATMENT: Therapeutic Exercise: 1: Left upper trap stretch 2x20 seconds. 2: Cervical retraction 2x10. 3: *Posterior shoulder rolls 2x 10 with verbal and visual cues for form. 4: Seated scapular retraction 1x10 with patient c/o pain B quads. 5: B shoulder waldo flexion and abduction 1x10 each. Skilled Intervention: Patient was educated in proper exercise technique and purpose for exercises. Skilled judgment was provided in selection of appropriate interventions. Billing: [facility]: Therapeutic Exercise ([id number]): 1:1 time: 25 minutes (2 units: 23-37 mins) Total time: 25 minutes Olivier Teejda PT CNTHERAPY Observed: 10/14/2017 Status: COMPLETED Source: [place] 12:30 PM [facility] REPOSITORY OT/PT/Speech Visit (PTWS) KESHIA ROJAS ([id number]) 1950 F Date Time Provider Department 10/14/17 12:30 PM OLIVIER TEJEDA (PT) PTWS Date Time Provider Department Center 10/14/2017 12:30 PM [id number], SEAN (PT)PTWS [facility] Reason for Visit: PT Discharge [752] Physical Therapy [503] Primary Visit Diagnosis:Neck pain, chronic [M54.2, G89.29] Other Visit Diagnosis:Falls, subsequent encounter [W19.XXXD] Allergies As of Date: 10/14/2017 Noted Allergy Reaction ekg patches [Other] 02/20/2006 4 - Hives Comments: skin gets red and raw needs hypoalergetic patches also any patch used for testing AGGRENOX (ASPIRIN-DIPYRIDAMOLE) 05/27/2011 14 - Other: See Comments Comments: Headache BACTRIM (SULFAMETHOXAZOLE-TRIMETH*03/20/2006 Comments: dizzy, redness, face flushed BETADINE (POVIDONE-IODINE) 11/04/2006 2 - Rash CETACAINE ([id number]*09/11/2012 14 - Other: See Comments Comments: excessive mucous production cigarettes [Other] 02/22/2010 12 - Shortness of Breath Comments: Hard to breath/has a sensitivity not an allergy CODEINE 03/07/2006 5 - Intolerance CORTISONE 12 - Shortness of Breath Comments: injection was given and swelled and had trouble breathing DEPOMEDROL [Other] 03/07/2006 7 - Swelling Comments: FACE SWELLED AFTER CORTISONE SHOT IN KNEE DETROL (TOLTERODINE TARTRATE) 03/07/2006 5 - Intolerance Comments: HEAD ACHE ,DRY MOUTH DITROPAN (OXYBUTYNIN CHLORIDE) 03/07/2006 5 - Intolerance Comments: DIZZY,SUN SENSITIVE LATEX 11/03/2009 2 - Rash MECLIZINE 03/07/2006 7 - Swelling Comments: URINARY RETENTION,FACE FELT FUNNY METOPROLOL 04/24/2006 8 - GI Upset Comments: headache.itching.hives. MYRBETRIQ (MIRABEGRON) 12/26/2014 14 - Other: See Comments Comments: elevated BP paper tape [Other] 08/15/2006 2 - Rash PREVACID (LANSOPRAZOLE) 03/07/2006 8 - GI Upset Comments: GAS,BURPING HEADACHE PRILOSEC (OMEPRAZOLE MAGNESIUM) 6 - Diarrhea TIZANIDINE 03/24/2014 14 - Other: See Comments Comments: increased pain ZELNORM (TEGASEROD HYDROGEN RACHELL*03/07/2006 4 - Hives Date Reviewed: 09/08/2017 Reviewed by: Tristen Kelsey RN - Fully Assessed Prescriptions as of 10/14/2017 Sig: LEVOTHYROXINE 50 MCG TABLET Take 1 tablet by mouth once d* DIAZEPAM 5 MG TABLET Take 1 tablet by mouth twice * LISINOPRIL 10 MG TABLET TAKE 1 TABLET EVERY DAY DICLOFENAC 1 % TOPICAL GEL Apply 2 g to affected area fo* DICLOFENAC 20 MG/GRAM/ACTUATI* Prescribed by Dr. Paz Patient not taking: Reported on 09/08/2017 WHITE PETROLATUM-MINERAL OIL * [facility] PROPYLENE GLYCOL-GLYCERIN 0.6* Use 2 Drops in both eyes as n* ESOMEPRAZOLE MAGNESIUM 20 MG * Take 1 capsule by mouth once * CLOBETASOL 0.05 % LOTION Apply to affected area. GABAPENTIN 100 MG CAPSULE Take 3 capsules at bedtime (D* Patient taking differently: 300 mg daily at bedtime. Take* COMPOUNDED PRESCRIPTION SEMI ELECTRIC HOSPITAL BED AN* HYDROCODONE 5 MG-ACETAMINOPHE* Take 1 by mouth at bedtime POVIDONE IODINE 2% IN 0.9% NA* Irrigate 2 Drops as instructe* DOCUSATE SODIUM 100 MG CAPSULE Take 1 capsule by mouth twice* Patient not taking: Reported on 09/08/2017 COMPOUNDED PRESCRIPTION KNEE HIGH COMPRESSION STOCKIN* ACETAMINOPHEN 325 MG TABLET Take 650 mg by mouth every 6 * COMPOUNDED PRESCRIPTION Shackelford Antiseptic Powder (c* * MULTIVITAMIN TABLET Take 1 tablet by mouth twice * Progress Notes: Olivier Tejeda, PT 10/20/2017 1:05 PM Signed Episode Visit Count: 4 Therapist That Will Oversee The Plan Of Care: Olivier Nikhil Start of Care Date: 09/16/17 Plan of Care Certification Date: 09/16/17 REHABILITATION AND SPORTS THERAPY PHYSICAL THERAPY DISCONTINUANCE OF CARE PLAN OF CARE UPDATE: Assessment: Keshia Rojas is discontinued from Physical Therapy services due to goal achievement.. Patient was seen for 4 visits from Start of Care Date: 09/16/17 to 10/20/2017 and treatment included: Therapeutic exercise, Neuromuscular re-education, Manual therapy, Self-shelter management and Patient/Family/Caregiver Education. Patient has seen significant improvements in neck pain, back pain, walking tolerance with no falls, walking speed, and strength/endurance. Patient doing well currently and jointly decided patient is appropriate to continue exercises on own at home. Goals for Episode of Care: created on 09/16/17 through 11/17/17 Independent in a Home Exercise Program. Met Patient will decrease pain rating by 2 points to meet minimal clinical important difference for numeric pain rating scale. Met Restore pain free cervical ROM to WNL in all ranges to allow for improved functional mobility. Met Patient will improve his/her AM-PAC T-scale score by 4 points to indicate a Minimal Clinical Important Difference. Not met Patient will report no falls. Met G CODE REPORTING Based on clinical assessment and the score on the AM-PAC Scale Score Assessment Tool, the G code and corresponding severity modifiers are documented below. Evaluation: 09/22/2017 Current Status: Changing AND Maintaining Body Position: G8981 20-39% impaired Goal Status: Changing AND Maintaining Body Position: G8982 20-39% impaired Discharge: 10/14/2017 Goal Status: Changing AND Maintaining Body Position: G8982 20-39% impaired Discharge: Changing AND Maintaining Body Position: G8983 20-39% impaired SUBJECTIVE: Pt still has difficulty standing unassisted. She is wearing a back brace to work, and she is either holding onto something, has a cane, or uses the wheeled walker with longer distances. She has noticed decreased frequency with the pain down her arm into the hand, and feels more confident on her feet. No falls since first visit. Pain is also more intermittent. Pain Score: 5/10 Pain Location: Back (everywhere) Description: Dull Frequency: Intermittent OBJECTIVE MEASURES WITH LEVEL OF FUNCTION: Cervical Spine AROM Cervical Flexion (degrees)?: 50 Degrees Cervical Extension (degrees)?: 50 Degrees Cervical Side-Bend Right (degrees): 35 Degrees Cervical Side-Bend Left (degrees)?: 35 Degrees Cervical Rotation Right (degrees)?: 71 Degrees Cervical Rotation Left (degrees)?: 81 UE and Cervical Strength R Checker In (Position 2) (lbs): 58 L Checker In (Position 2) (lbs): 58 30 Second Sit to Stand Test (reps): 16 reps Timed Up and Go (sec): 6.69 sec TREATMENT: Therapeutic Exercise: 1: Left upper trap stretch 2x20 seconds. 2: Cervical retraction 2x10. 3: *Posterior shoulder rolls 2x 10 with verbal and visual cues for form. 4: Seated scapular retraction 1x10 with patient c/o pain B quads. 5: B shoulder waldo flexion and abduction 1x10 each. Skilled Intervention: Patient was educated in proper exercise technique and purpose for exercises. Skilled judgment was provided in selection of appropriate interventions. Billing: [facility]: Therapeutic Exercise ([id number]): 1:1 time: 25 minutes (2 units: 23-37 mins) Total time: 25 minutes Olivier Tejeda PT PROGRESS Observed: 10/07/2017 Status: COMPLETED Source: [place] 4:29 PM [facility] REPOSITORY HNO ID: [id number] Author: Olivier Tejeda Service: (none) Author Type: Physical Therapist Type: Progress Notes Filed: 10/07/2017 5:20 PM Note Text: Episode Visit Count: 3 Therapist That Will Oversee The Plan Of Care: Olivier Tejeda Start of Care Date: 09/16/17 Plan of Care Certification Date: 09/16/17 Patient Identified by Name and Date of : Yes REHABILITATION AND SPORTS THERAPY PHYSICAL THERAPY TREATMENT NOTE ASSESSMENT: Keshia Rojas demonstrated difficulty with lateral flexion to the leftt at home. She was educated that she was supposed to be stretching left upper trap only at home at current time. Patient with much improved tolerance to all exercises in therapy today and with lying down with pillow under back and not head with no adverse symptoms. Manual techniques felt good to patient today. Following exercise and manual therapy techniques patient had no cervical or shoulder pain with active movements. The patient will continue to benefit from continued skilled physical therapy for progression of exercises and manual therapy techniques. PLAN FOR NEXT VISIT: Continue with AROM, strengthening and manual techniques for pain control. SUBJECTIVE: Patient reports feeling worse in her neck since last seen. Pain Score: 7/10 Pain Location: Neck - Left;Shoulder - Left Description: Dull (dull with movement. No pain at rest.) Frequency: Intermittent Post Treatment Pain Score: 0/10 Pain Location: Neck - Left;Shoulder - Left OBJECTIVE MEASURES WITH LEVEL OF FUNCTION: Exercise and manual traction and lacrosse ball mobs abolished left neck and shoulder pain with movements at end of therapy today. TREATMENT: Therapeutic Exercise: 1: Left upper trap stretch 2x20 seconds. 2: Cervical retraction 2x10. 3: *Posterior shoulder rolls 2x 10 with verbal and visual cues for form. 4: Seated scapular retraction 1x10 with patient c/o pain B quads. 5: B shoulder waldo flexion and abduction 1x10 each. Skilled Intervention: Patient was educated in proper exercise technique and purpose for exercises. Reviewed and educated patient on additions/changes for home exercise program as above (*) Skilled judgment was provided in selection of appropriate interventions. Provided written instruction for home exercise program to facilitate proper performance and compliance. Correct performance of therapeutic exercises was facilitated with verbal and visual cuing. Manual Therapy: 1: Manual cervical traction x8 minutes supine with pillow under back and no pillow under head. 2: Lacrosse ball mobs B cervical and UT region x 10 minutes; Skilled Intervention: Manual skills to improve joint mobility, ROM, and decrease pain. Utilized anatomy knowledge of the therapist, and assessment of patient's response to intervention. Billing: [facility]: Therapeutic Exercise ([id number]): 1:1 time: 25 minutes (2 units: 23-37 mins) Manual Therapy ([id number]): 1:1 time: 18 minutes (1 unit: 8-22 mins) Total time: 43 minutes PREET Lemos PT CNTHERAPY Observed: 10/07/2017 Status: COMPLETED Source: [place] 2:00 PM [facility] REPOSITORY OT/PT/Speech Visit (PTWS) KESHIA ROJAS ([id number]) 1950 F Date Time Provider Department 10/07/17 2:00 PM CALIXTO GOMEZ (MACHINE OPERATOR HELPER) PTWS Date Time Provider Department Center 10/07/2017 2:00 PM [id number], NANCY (MACHINE OPERATOR HELPER) PTWS [facility] Reason for Visit: Physical Therapy [503] Primary Visit Diagnosis:Neck pain, chronic [M54.2, G89.29] Other Visit Diagnosis:Falls, subsequent encounter [W19.XXXD] Allergies As of Date: 10/07/2017 Noted Allergy Reaction ekg patches [Other] 02/20/2006 4 - Hives Comments: skin gets red and raw needs hypoalergetic patches also any patch used for testing AGGRENOX (ASPIRIN-DIPYRIDAMOLE) 05/27/2011 14 - Other: See Comments Comments: Headache BACTRIM (SULFAMETHOXAZOLE-TRIMETH*03/20/2006 Comments: dizzy, redness, face flushed BETADINE (POVIDONE-IODINE) 11/04/2006 2 - Rash CETACAINE ([id number]*09/11/2012 14 - Other: See Comments Comments: excessive mucous production cigarettes [Other] 02/22/2010 12 - Shortness of Breath Comments: Hard to breath/has a sensitivity not an allergy CODEINE 03/07/2006 5 - Intolerance CORTISONE 12 - Shortness of Breath Comments: injection was given and swelled and had trouble breathing DEPOMEDROL [Other] 03/07/2006 7 - Swelling Comments: FACE SWELLED AFTER CORTISONE SHOT IN KNEE DETROL (TOLTERODINE TARTRATE) 03/07/2006 5 - Intolerance Comments: HEAD ACHE ,DRY MOUTH DITROPAN (OXYBUTYNIN CHLORIDE) 03/07/2006 5 - Intolerance Comments: DIZZY,SUN SENSITIVE LATEX 11/03/2009 2 - Rash MECLIZINE 03/07/2006 7 - Swelling Comments: URINARY RETENTION,FACE FELT FUNNY METOPROLOL 04/24/2006 8 - GI Upset Comments: headache.itching.hives. MYRBETRIQ (MIRABEGRON) 12/26/2014 14 - Other: See Comments Comments: elevated BP paper tape [Other] 08/15/2006 2 - Rash PREVACID (LANSOPRAZOLE) 03/07/2006 8 - GI Upset Comments: GAS,BURPING HEADACHE PRILOSEC (OMEPRAZOLE MAGNESIUM) 6 - Diarrhea TIZANIDINE 03/24/2014 14 - Other: See Comments Comments: increased pain ZELNORM (TEGASEROD HYDROGEN RACHELL*03/07/2006 4 - Hives Date Reviewed: 09/08/2017 Reviewed by: Tristen Kelsey RN - Fully Assessed Prescriptions as of 10/07/2017 Sig: LEVOTHYROXINE 50 MCG TABLET Take 1 tablet by mouth once d* DIAZEPAM 5 MG TABLET Take 1 tablet by mouth twice * LISINOPRIL 10 MG TABLET TAKE 1 TABLET EVERY DAY DICLOFENAC 1 % TOPICAL GEL Apply 2 g to affected area fo* DICLOFENAC 20 MG/GRAM/ACTUATI* Prescribed by Dr. Paz Patient not taking: Reported on 09/08/2017 WHITE PETROLATUM-MINERAL OIL * [facility] PROPYLENE GLYCOL-GLYCERIN 0.6* Use 2 Drops in both eyes as n* ESOMEPRAZOLE MAGNESIUM 20 MG * Take 1 capsule by mouth once * CLOBETASOL 0.05 % LOTION Apply to affected area. GABAPENTIN 100 MG CAPSULE Take 3 capsules at bedtime (D* Patient taking differently: 300 mg daily at bedtime. Take* COMPOUNDED PRESCRIPTION SEMI [facility]LECT[facility]IC [facility] BED AN* HYDROCODONE 5 MG-ACETAMINOPHE* Take 1 by mouth at bedtime POVIDONE IODINE 2% IN 0.9% NA* Irrigate 2 Drops as instructe* DOCUSATE SODIUM 100 MG CAPSULE Take 1 capsule by mouth twice* Patient not taking: Reported on 09/08/2017 COMPOUNDED PRESCRIPTION KNEE HIGH COMPRESSION STOCKIN* ACETAMINOPHEN 325 MG TABLET Take 650 mg by mouth every 6 * COMPOUNDED PRESCRIPTION Shackelford Antiseptic Powder (c* * MULTIVITAMIN TABLET Take 1 tablet by mouth twice * Progress Notes: Olivier Tejeda, PT 10/07/2017 5:20 PM Signed Episode Visit Count: 3 Therapist That Will Oversee The Plan Of Care: Olivier Tejeda Start of Care Date: 09/16/17 Plan of Care Certification Date: 09/16/17 Patient Identified by Name and Date of : Yes REHABILITATION AND SPORTS THERAPY PHYSICAL THERAPY TREATMENT NOTE ASSESSMENT: Keshia Rojas demonstrated difficulty with lateral flexion to the leftt at home. She was educated that she was supposed to be stretching left upper trap only at home at current time. Patient with much improved tolerance to all exercises in therapy today and with lying down with pillow under back and not head with no adverse symptoms. Manual techniques felt good to patient today. Following exercise and manual therapy techniques patient had no cervical or shoulder pain with active movements. The patient will continue to benefit from continued skilled physical therapy for progression of exercises and manual therapy techniques. PLAN FOR NEXT VISIT: Continue with AROM, strengthening and manual techniques for pain control. SUBJECTIVE: Patient reports feeling worse in her neck since last seen. Pain Score: 7/10 Pain Location: Neck - Left;Shoulder - Left Description: Dull (dull with movement. No pain at rest.) Frequency: Intermittent Post Treatment Pain Score: 0/10 Pain Location: Neck - Left;Shoulder - Left OBJECTIVE MEASURES WITH LEVEL OF FUNCTION: Exercise and manual traction and lacrosse ball mobs abolished left neck and shoulder pain with movements at end of therapy today. TREATMENT: Therapeutic Exercise: 1: Left upper trap stretch 2x20 seconds. 2: Cervical retraction 2x10. 3: *Posterior shoulder rolls 2x 10 with verbal and visual cues for form. 4: Seated scapular retraction 1x10 with patient c/o pain B quads. 5: B shoulder waldo flexion and abduction 1x10 each. Skilled Intervention: Patient was educated in proper exercise technique and purpose for exercises. Reviewed and educated patient on additions/changes for home exercise program as above (*) Skilled judgment was provided in selection of appropriate interventions. Provided written instruction for home exercise program to facilitate proper performance and compliance. Correct performance of therapeutic exercises was facilitated with verbal and visual cuing. Manual Therapy: 1: Manual cervical traction x8 minutes supine with pillow under back and no pillow under head. 2: Lacrosse ball mobs B cervical and UT region x 10 minutes; Skilled Intervention: Manual skills to improve joint mobility, ROM, and decrease pain. Utilized anatomy knowledge of the therapist, and assessment of patient's response to intervention. Billing: [facility]: Therapeutic Exercise ([id number]): 1:1 time: 25 minutes (2 units: 23-37 mins) Manual Therapy ([id number]): 1:1 time: 18 minutes (1 unit: 8-22 mins) Total time: 43 minutes Calixto Gomez PTBlanca Tejeda PT Previous Version Follow-up and Disposition History Recorded PROGRESS Observed: 09/30/2017 Status: COMPLETED Source: [place] 3:05 PM [facility] [place] REPOSITORY HNO ID: [id number] Author: Olivier Tejeda Service: (none) Author Type: Physical Therapist Type: Progress Notes Filed: 09/30/2017 3:52 PM Note Text: Episode Visit Count: 2 Therapist That Will Oversee The Plan Of Care: Olivier Tejeda Start of Care Date: 09/16/17 Plan of Care Certification Date: 09/16/17 Patient Identified by Name and Date of : Yes REHABILITATION AND SPORTS THERAPY PHYSICAL THERAPY TREATMENT NOTE ASSESSMENT: Keshia Rojas demonstrated relief of neck pain during traction last visit with no lasting pain relief. Added lacrosse ball mobs with emphasis on left upper trap and cervical region with intermittent tingling left fingers which decreased as mobilizations progressed. Manual cervical traction felt good on neck and she at times had difficulty with lying supine for this. Added Left upper trap stretch and cervical retraction to be added to HEP and patient was receptive to this. The patient will continue to benefit from continued skilled physical therapy for progression of cervical exercise and manual therapy. PLAN FOR NEXT VISIT: Continue with traction , lacrosse ball mobs and advance cervical ex per patient tolerance. SUBJECTIVE: Patient reports the neck has some pain. She reports lifting left arm causes increases pain left shoulder, neck and back. Patient reports the neck felt good during manual traction last visit. Pain Score: 7/10 (with movement and no pain neck and shoulder at rest) Pain Location: Neck - Left;Shoulder - Left Description: (annoying) Frequency: Intermittent Post Treatment Pain Score: 5/10 Pain Location: Elbow - Left;Finger - Left Post Treatment Pain Description: Aching OBJECTIVE MEASURES WITH LEVEL OF FUNCTION: Cervcial retraction decrease pressure in neck for short duration. TREATMENT: Therapeutic Exercise: 1: *Left upper trap stretch 2x20 seconds. 2: *Cervical retraction 1x10. Skilled Intervention: Patient was educated in proper exercise technique and purpose for exercises. Reviewed and educated patient on additions/changes for home exercise program as above (*) Skilled judgment was provided in selection of appropriate interventions. Provided written instruction for home exercise program to facilitate proper performance and compliance. Correct performance of therapeutic exercises was facilitated with verbal and visual cuing. Manual Therapy: 1: Manual cervical traction x10 minutes 2: Lacrosse ball mobs B cervical and UT region x 10 minutes; Skilled Intervention: Manual skills to improve joint mobility, ROM, and decrease pain. Utilized anatomy knowledge of the therapist, and assessment of patient's response to intervention. Billing: [facility]: Therapeutic Exercise ([id number]): 1:1 time: 12 minutes (1 unit: 8-22 mins) Manual Therapy ([id number]): 1:1 time: 20 minutes (1 unit: 8-22 mins) Total time: 32 minutes PREET Lemos PT CNTHERAPY Observed: 09/30/2017 Status: COMPLETED Source: [place] 1:15 PM [facility] REPOSITORY OT/PT/Speech Visit (PTWS) KESHIA ROJAS ([id number]) 1950 F Date Time Provider Department 09/30/17 1:15 PM CALIXTO GOMEZ (MACHINE OPERATOR HELPER) PTWS Date Time Provider Department Center 09/30/2017 1:15 PM [id number], NANCY (MACHINE OPERATOR HELPER) PTWS [facility] Reason for Visit: Physical Therapy [503] Primary Visit Diagnosis:Neck pain, chronic [M54.2, G89.29] Other Visit Diagnosis:Falls, subsequent encounter [W19.XXXD] Allergies As of Date: 09/30/2017 Noted Allergy Reaction ekg patches [Other] 02/20/2006 4 - Hives Comments: skin gets red and raw needs hypoalergetic patches also any patch used for testing AGGRENOX (ASPIRIN-DIPYRIDAMOLE) 05/27/2011 14 - Other: See Comments Comments: Headache BACTRIM (SULFAMETHOXAZOLE-TRIMETH*03/20/2006 Comments: dizzy, redness, face flushed BETADINE (POVIDONE-IODINE) 11/04/2006 2 - Rash CETACAINE ([id number]*09/11/2012 14 - Other: See Comments Comments: excessive mucous production cigarettes [Other] 02/22/2010 12 - Shortness of Breath Comments: Hard to breath/has a sensitivity not an allergy CODEINE 03/07/2006 5 - Intolerance CORTISONE 12 - Shortness of Breath Comments: injection was given and swelled and had trouble breathing DEPOMEDROL [Other] 03/07/2006 7 - Swelling Comments: FACE SWELLED AFTER CORTISONE SHOT IN KNEE DETROL (TOLTERODINE TARTRATE) 03/07/2006 5 - Intolerance Comments: HEAD ACHE ,DRY MOUTH DITROPAN (OXYBUTYNIN CHLORIDE) 03/07/2006 5 - Intolerance Comments: DIZZY,SUN SENSITIVE LATEX 11/03/2009 2 - Rash MECLIZINE 03/07/2006 7 - Swelling Comments: URINARY RETENTION,FACE FELT FUNNY METOPROLOL 04/24/2006 8 - GI Upset Comments: headache.itching.hives. MYRBETRIQ (MIRABEGRON) 12/26/2014 14 - Other: See Comments Comments: elevated BP paper tape [Other] 08/15/2006 2 - Rash PREVACID (LANSOPRAZOLE) 03/07/2006 8 - GI Upset Comments: GAS,BURPING HEADACHE PRILOSEC (OMEPRAZOLE MAGNESIUM) 6 - Diarrhea TIZANIDINE 03/24/2014 14 - Other: See Comments Comments: increased pain ZELNORM (TEGASEROD HYDROGEN RACHELL*03/07/2006 4 - Hives Date Reviewed: 09/08/2017 Reviewed by: Tristen Kelsey RN - Fully Assessed Prescriptions as of 09/30/2017 Sig: LEVOTHYROXINE 50 MCG TABLET Take 1 tablet by mouth once d* DIAZEPAM 5 MG TABLET Take 1 tablet by mouth twice * LISINOPRIL 10 MG TABLET TAKE 1 TABLET EVERY DAY DICLOFENAC 1 % TOPICAL GEL Apply 2 g to affected area fo* DICLOFENAC 20 MG/GRAM/ACTUATI* Prescribed by Dr. Paz Patient not taking: Reported on 09/08/2017 WHITE PETROLATUM-MINERAL OIL * [facility]. [facility] PROPYLENE GLYCOL-GLYCERIN 0.6* Use 2 Drops in both eyes as n* ESOMEPRAZOLE MAGNESIUM 20 MG * Take 1 capsule by mouth once * CLOBETASOL 0.05 % LOTION Apply to affected area. GABAPENTIN 100 MG CAPSULE Take 3 capsules at bedtime (D* Patient taking differently: 300 mg daily at bedtime. Take* COMPOUNDED PRESCRIPTION SEMI [facility]LECT[facility] BED AN* HYDROCODONE 5 MG-ACETAMINOPHE* Take 1 by mouth at bedtime POVIDONE IODINE 2% IN 0.9% NA* Irrigate 2 Drops as instructe* DOCUSATE SODIUM 100 MG CAPSULE Take 1 capsule by mouth twice* Patient not taking: Reported on 09/08/2017 COMPOUNDED PRESCRIPTION KNEE HIGH COMPRESSION STOCKIN* ACETAMINOPHEN 325 MG TABLET Take 650 mg by mouth every 6 * COMPOUNDED PRESCRIPTION Shackelford Antiseptic Powder (c* * MULTIVITAMIN TABLET Take 1 tablet by mouth twice * Progress Notes: Olivier Tejeda, PT 09/30/2017 3:52 PM Signed Episode Visit Count: 2 Therapist That Will Oversee The Plan Of Care: Olivier Tejeda Start of Care Date: 09/16/17 Plan of Care Certification Date: 09/16/17 Patient Identified by Name and Date of : Yes REHABILITATION AND SPORTS THERAPY PHYSICAL THERAPY TREATMENT NOTE ASSESSMENT: Keshia Rojas demonstrated relief of neck pain during traction last visit with no lasting pain relief. Added lacrosse ball mobs with emphasis on left upper trap and cervical region with intermittent tingling left fingers which decreased as mobilizations progressed. Manual cervical traction felt good on neck and she at times had difficulty with lying supine for this. Added Left upper trap stretch and cervical retraction to be added to HEP and patient was receptive to this. The patient will continue to benefit from continued skilled physical therapy for progression of cervical exercise and manual therapy. PLAN FOR NEXT VISIT: Continue with traction , lacrosse ball mobs and advance cervical ex per patient tolerance. SUBJECTIVE: Patient reports the neck has some pain. She reports lifting left arm causes increases pain left shoulder, neck and back. Patient reports the neck felt good during manual traction last visit. Pain Score: 7/10 (with movement and no pain neck and shoulder at rest) Pain Location: Neck - Left;Shoulder - Left Description: (annoying) Frequency: Intermittent Post Treatment Pain Score: 5/10 Pain Location: Elbow - Left;Finger - Left Post Treatment Pain Description: Aching OBJECTIVE MEASURES WITH LEVEL OF FUNCTION: Cervcial retraction decrease pressure in neck for short duration. TREATMENT: Therapeutic Exercise: 1: *Left upper trap stretch 2x20 seconds. 2: *Cervical retraction 1x10. Skilled Intervention: Patient was educated in proper exercise technique and purpose for exercises. Reviewed and educated patient on additions/changes for home exercise program as above (*) Skilled judgment was provided in selection of appropriate interventions. Provided written instruction for home exercise program to facilitate proper performance and compliance. Correct performance of therapeutic exercises was facilitated with verbal and visual cuing. Manual Therapy: 1: Manual cervical traction x10 minutes 2: Lacrosse ball mobs B cervical and UT region x 10 minutes; Skilled Intervention: Manual skills to improve joint mobility, ROM, and decrease pain. Utilized anatomy knowledge of the therapist, and assessment of patient's response to intervention. Billing: [facility]: Therapeutic Exercise ([id number]): 1:1 time: 12 minutes (1 unit: 8-22 mins) Manual Therapy ([id number]): 1:1 time: 20 minutes (1 unit: 8-22 mins) Total time: 32 minutes Calixto Gomez PT-Agus Tejeda PT Previous Version Follow-up and Disposition History Recorded PROGRESS Observed: 09/22/2017 Status: COMPLETED Source: [place] 1:30 PM [facility] REPOSITORY HNO ID: [id number] Author: Olivier (Pt) Nikhil Service: (none) Author Type: Physical Therapist Type: Progress Notes Filed: 09/22/2017 1:46 PM Note Text: Episode Visit Count: 1 Therapist That Will Oversee The Plan Of Care: Olivierjaden Tejeda Start of Care Date: 09/16/17 Plan of Care Certification Date: 09/16/17 Patient Identified by Name and Date of : Yes REHABILITATION AND SPORTS THERAPY PHYSICAL THERAPY EVALUATION PLAN OF CARE: Assessment: Keshia Rojas presents with the chief complaint of neck pain with bilateral radicular symptoms. She presents with impairments of limited neck range of motion, positive quadrant testing, decreased tolerance for standing, walking, and remains a fall risk. She may benefit from skilled therapy services to improve the above noted deficits and help to prevent further falls. Prognosis: Poor Poor due to: clinical presentation;multiple co- morbidities;chronic nature of impairments;limited compliance with previous therapy;limited support system;limited tolerance to activity Goals for Episode of Care: created on 09/16/17 through 11/17/17 Independent in a Home Exercise Program. Patient will decrease pain rating by 2 points to meet minimal clinical important difference for numeric pain rating scale. Restore pain free cervical ROM to WNL in all ranges to allow for improved functional mobility. Patient will improve his/her AM-PAC T-scale score by 4 points to indicate a Minimal Clinical Important Difference. Patient will report no falls. G CODE REPORTING Based on clinical assessment and the score on the AM-PAC Scale Score Assessment Tool, the G code and corresponding severity modifiers are documented below. Evaluation: 09/22/2017 Current Status: Changing AND Maintaining Body Position: G8981 20-39% impaired Goal Status: Changing AND Maintaining Body Position: G8982 20-39% impaired Planned Interventions, Frequency, and Duration: Current Frequency: 1x/week Duration: 4 weeks Total Number of Visits Planned: 4 Planned Treatment Interventions: Therapeutic exercise;Neuromuscular re-education;Manual therapy;Self-shelter management;Gait Training;Patient/Family/Caregiver Education PLAN FOR NEXT VISIT: continue traction, may add manual to improve cervical rom Patient demonstrates good understanding of plan of care and treatment. The above goals and plan of care were discussed and agreed upon by patient/family. SUBJECTIVE: Keshia Rojas is a 67 year old female seen today for Pt comes in today after trip to the ER in which she had severe stomach pain and shoot pain into her arms. Now she can get pain shooting into her arms when she presses down with her arm. Pain shoots mostly down the left but can also shoot into the right. Pain Score: 10/10 Pain Location: Arm - Left;Arm - Right Description: Sharp Frequency: Intermittent OBJECTIVE MEASURES WITH LEVEL OF FUNCTION: Cervical Spine AROM Cervical AROM determined by: Measurement Cervical Flexion (degrees)?: 35 Degrees Cervical Extension (degrees)?: 42 Degrees (pt reports blacking out sensation with this motion) Cervical Side-Bend Right (degrees): 32 Degrees Cervical Side-Bend Left (degrees)?: 30 Degrees Cervical Rotation Right (degrees)?: 32 Degrees Cervical Rotation Left (degrees)?: 47 UE and Cervical Strength Deep Neck Flexor Endurance: 7 sec R Checker In (Position 2) (lbs): 60 L Checker In (Position 2) (lbs): 62 Special Tests - Cervical Cervical Special Tests: Cervical Compression;Cervical Distraction;Quadrant;Spurling Cervical Compression: Negative Cervical Distraction: Positive Quadrant: Right Positive;Left Positive Spurling: Right Negative;Left Negative Education: TREATMENT: Evaluation Manual Therapy: 1: Manual cervical traction x10 minutes Skilled Intervention: Manual skills to improve joint mobility, ROM, and decrease pain. Utilized anatomy knowledge of the therapist, and assessment of patient's response to intervention. Billing: [facility]: Evaluation - Moderate Complexity (47505) Manual Therapy (35957): 1:1 time: 10 minutes (1 unit: 8-22 mins) Total time: 50 minutes Olivier Tejeda PT CNTHERAPY Observed: 09/16/2017 Status: COMPLETED Source: [place] 11:00 AM [facility] REPOSITORY OT/PT/Speech Visit (PTWS) KESHIA ROJAS ([id number]) 1950 F Date Time Provider Department 09/16/17 11:00 AM OLIVIER TEJEDA (PT) PTWS Date Time Provider Department Center 09/16/2017 11:00 AM [id number], SEAN (PT)PTWS [facility] Reason for Visit: PT Re-eval [891] Physical Therapy [503] Primary Visit Diagnosis:Neck pain, chronic [M54.2, G89.29] Other Visit Diagnosis:Falls, subsequent encounter [W19.XXXD] Allergies As of Date: 09/16/2017 Noted Allergy Reaction ekg patches [Other] 02/20/2006 4 - Hives Comments: skin gets red and raw needs hypoalergetic patches also any patch used for testing AGGRENOX (ASPIRIN-DIPYRIDAMOLE) 05/27/2011 14 - Other: See Comments Comments: Headache BACTRIM (SULFAMETHOXAZOLE-TRIMETH*03/20/2006 Comments: dizzy, redness, face flushed BETADINE (POVIDONE-IODINE) 11/04/2006 2 - Rash CETACAINE ([id number]*09/11/2012 14 - Other: See Comments Comments: excessive mucous production cigarettes [Other] 02/22/2010 12 - Shortness of Breath Comments: Hard to breath/has a sensitivity not an allergy CODEINE 03/07/2006 5 - Intolerance CORTISONE 12 - Shortness of Breath Comments: injection was given and swelled and had trouble breathing DEPOMEDROL [Other] 03/07/2006 7 - Swelling Comments: FACE SWELLED AFTER CORTISONE SHOT IN KNEE DETROL (TOLTERODINE TARTRATE) 03/07/2006 5 - Intolerance Comments: HEAD ACHE ,DRY MOUTH DITROPAN (OXYBUTYNIN CHLORIDE) 03/07/2006 5 - Intolerance Comments: DIZZY,SUN SENSITIVE LATEX 11/03/2009 2 - Rash MECLIZINE 03/07/2006 7 - Swelling Comments: URINARY RETENTION,FACE FELT FUNNY METOPROLOL 04/24/2006 8 - GI Upset Comments: headache.itching.hives. MYRBETRIQ (MIRABEGRON) 12/26/2014 14 - Other: See Comments Comments: elevated BP paper tape [Other] 08/15/2006 2 - Rash PREVACID (LANSOPRAZOLE) 03/07/2006 8 - GI Upset Comments: GAS,BURPING HEADACHE PRILOSEC (OMEPRAZOLE MAGNESIUM) 6 - Diarrhea TIZANIDINE 03/24/2014 14 - Other: See Comments Comments: increased pain ZELNORM (TEGASEROD HYDROGEN RACHELL*03/07/2006 4 - Hives Date Reviewed: 09/08/2017 Reviewed by: Tristen Kelsey RN - Fully Assessed Prescriptions as of 09/16/2017 Sig: DIAZEPAM 5 MG TABLET Take 1 tablet by mouth twice * LISINOPRIL 10 MG TABLET TAKE 1 TABLET EVERY DAY DICLOFENAC 1 % TOPICAL GEL Apply 2 g to affected area fo* DICLOFENAC 20 MG/GRAM/ACTUATI* Prescribed by Dr. Paz Patient not taking: Reported on 09/08/2017 WHITE PETROLATUM-MINERAL OIL * Dr. Lynne [facility] PROPYLENE GLYCOL-GLYCERIN 0.6* Use 2 Drops in both eyes as n* ESOMEPRAZOLE MAGNESIUM 20 MG * Take 1 capsule by mouth once * X LEVOTHYROXINE 50 MCG TABLET Take 1 tablet by mouth once d* CLOBETASOL 0.05 % LOTION Apply to affected area. GABAPENTIN 100 MG CAPSULE Take 3 capsules at bedtime (D* Patient taking differently: 300 mg daily at bedtime. Take* COMPOUNDED PRESCRIPTION SEMI ELECTRIC HOSPITAL BED AN* HYDROCODONE 5 MG-ACETAMINOPHE* Take 1 by mouth at bedtime POVIDONE IODINE 2% IN 0.9% NA* Irrigate 2 Drops as instructe* DOCUSATE SODIUM 100 MG CAPSULE Take 1 capsule by mouth twice* Patient not taking: Reported on 09/08/2017 COMPOUNDED PRESCRIPTION KNEE HIGH COMPRESSION STOCKIN* ACETAMINOPHEN 325 MG TABLET Take 650 mg by mouth every 6 * COMPOUNDED PRESCRIPTION Shackelford Antiseptic Powder (c* * MULTIVITAMIN TABLET Take 1 tablet by mouth twice * Progress Notes: Olivier Tejeda, PT 09/22/2017 1:46 PM Signed Episode Visit Count: 1 Therapist That Will Oversee The Plan Of Care: Olivier Tejeda Start of Care Date: 09/16/17 Plan of Care Certification Date: 09/16/17 Patient Identified by Name and Date of : Yes REHABILITATION AND SPORTS THERAPY PHYSICAL THERAPY EVALUATION PLAN OF CARE: Assessment: Keshia Rojas presents with the chief complaint of neck pain with bilateral radicular symptoms. She presents with impairments of limited neck range of motion, positive quadrant testing, decreased tolerance for standing, walking, and remains a fall risk. She may benefit from skilled therapy services to improve the above noted deficits and help to prevent further falls. Prognosis: Poor Poor due to: clinical presentation;multiple co- morbidities;chronic nature of impairments;limited compliance with previous therapy;limited support system;limited tolerance to activity Goals for Episode of Care: created on 09/16/17 through 11/17/17 Independent in a Home Exercise Program. Patient will decrease pain rating by 2 points to meet minimal clinical important difference for numeric pain rating scale. Restore pain free cervical ROM to WNL in all ranges to allow for improved functional mobility. Patient will improve his/her AM-PAC T-scale score by 4 points to indicate a Minimal Clinical Important Difference. Patient will report no falls. G CODE REPORTING Based on clinical assessment and the score on the AM-PAC Scale Score Assessment Tool, the G code and corresponding severity modifiers are documented below. Evaluation: 09/22/2017 Current Status: Changing AND Maintaining Body Position: G8981 20-39% impaired Goal Status: Changing AND Maintaining Body Position: G8982 CJ 20-39% impaired Planned Interventions, Frequency, and Duration: Current Frequency: 1x/week Duration: 4 weeks Total Number of Visits Planned: 4 Planned Treatment Interventions: Therapeutic exercise;Neuromuscular re-education;Manual therapy;Self-shelter management;Gait Training;Patient/Family/Caregiver Education PLAN FOR NEXT VISIT: continue traction, may add manual to improve cervical rom Patient demonstrates good understanding of plan of care and treatment. The above goals and plan of care were discussed and agreed upon by patient/family. SUBJECTIVE: Keshia Rojas is a 67 year old female seen today for Pt comes in today after trip to the ER in which she had severe stomach pain and shoot pain into her arms. Now she can get pain shooting into her arms when she presses down with her arm. Pain shoots mostly down the left but can also shoot into the right. Pain Score: 10/10 Pain Location: Arm - Left;Arm - Right Description: Sharp Frequency: Intermittent OBJECTIVE MEASURES WITH LEVEL OF FUNCTION: Cervical Spine AROM Cervical AROM determined by: Measurement Cervical Flexion (degrees)?: 35 Degrees Cervical Extension (degrees)?: 42 Degrees (pt reports blacking out sensation with this motion) Cervical Side-Bend Right (degrees): 32 Degrees Cervical Side-Bend Left (degrees)?: 30 Degrees Cervical Rotation Right (degrees)?: 32 Degrees Cervical Rotation Left (degrees)?: 47 UE and Cervical Strength Deep Neck Flexor Endurance: 7 sec R Checker In (Position 2) (lbs): 60 L Checker In (Position 2) (lbs): 62 Special Tests - Cervical Cervical Special Tests: Cervical Compression;Cervical Distraction;Quadrant;Spurling Cervical Compression: Negative Cervical Distraction: Positive Quadrant: Right Positive;Left Positive Spurling: Right Negative;Left Negative Education: TREATMENT: Evaluation Manual Therapy: 1: Manual cervical traction x10 minutes Skilled Intervention: Manual skills to improve joint mobility, ROM, and decrease pain. Utilized anatomy knowledge of the therapist, and assessment of patient's response to intervention. Billing: [facility]: Evaluation - Moderate Complexity (88625) Manual Therapy (44684): 1:1 time: 10 minutes (1 unit: 8-22 mins) Total time: 50 minutes Olivier Tejeda PT PROGRESS Observed: 09/10/2017 Status: COMPLETED Source: [place] 7:47 AM [facility] REPOSITORY HNO ID: [id number] Author: Olivier Tejeda Service: (none) Author Type: Physical Therapist Type: Progress Notes Filed: 09/10/2017 7:47 AM Note Text: [facility] REHABILITATION AND SPORTS THERAPY PHYSICAL THERAPY DISCONTINUANCE OF CARE Plan of Care Period: Start of Care Date: 06/02/17 Last Visit Date: 06/10/2017 Therapy Program: The following is a summary of the interventions provided for this episode of care; Therapeutic exercise, Neuromuscular re-education and Manual therapy Assessment: Based on most recent visit, patient was progressing slower than expected toward functional goals based on documented subjective information on progress. Unable to formally assess goal achievement due to non-compliance with therapy plan of care. Reason for Discontinuation of Care: Patient has not returned to therapy or scheduled additional follow-up appointments. Olivier Tejeda PT CNOV Observed: 09/08/2017 Status: COMPLETED Source: [place] 8:30 AM [facility] REPOSITORY Office Visit (VASSWS) KESHIA ROJAS ([id number]) 1950 F Date Time Provider Department 09/08/17 8:30 AM DAI MARADIAGA During your visit today, we recorded the following information about you: Pulse Blood pressure 76/minute 118/79 Dai Maradiaga DO 09/08/2017 9:37 AM Signed VASCULAR SURGERY INITIAL CONSULT SERVICE DATE: 09/08/2017 SERVICE TIME: 8:36 AM PRIMARY CARE PHYSICIAN: Paulo Scott MD Consult requested for an opinion regarding the evaluation and treatment of the above. My final impression and recommendations will be communicated back to the requesting physician by way of the shared medical record or letter via US mail. CHIEF COMPLAINT/HISTORY OF PRESENT ILLNESS: Chief Complaint: PAD History of Present Illness: Keshia Rojas is a 67 year old female referred for follow-up on PAD and possible surgical removal of ingrown left great toenail. Ms. Rojas reports history of DVT, HTN, HLD. Ms. Rojas reports occasional leg/feet swelling, especially since re-starting working again (states she is on her feet all day, works at [employer]). She states she occasionally wears compression, but does elevate her legs when she is able. She also reports arm swelling, worse in the left, for which she has been wearing her leg compression on her arm. Ms. Rojas states she has been told she has a pinched nerve, which is causing her arm pain. She denies wounds or ulcerations on her feet or legs, however, does have some patches of dryness on her feet. Ms. Rojas is a nonsmoker. She reports symptoms of Raynaud's- which include pain and discoloration in feet/toes during the winter. 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 (Dr. Charlton) - Cataracts, both eyes - Coronary atherosclerosis of unspecified type of vessel, douglas or graft minimal plaque on cath 08/06/2006 - DVT (deep venous thrombosis) (HCC) 2010 Right leg OCTOBER 2009 NOT TREATED - Dysmetabolic syndrome X - Esophageal reflux - Fibromyalgia better with Lyrica - Floppy eyelid syndrome - Hiatal hernia Large when seen on EGD 10/2010 at [facility] (Dr. 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 Chavarria - DANDC, DIAG AND/OR THERAPEUTIC 07/24/2005 Dilation AND curettage - EXC TUMOR SOFT TISS FOREARM AND/WRIST SUBQ 3+CM Right 11/04/15 Exc. right forearm lipoma - HYSTEROSCOPY, DIAGNOSTIC (SEPARATE 07/24/2005 Hysteroscopy - INTRO. 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 at 7o's - Cancer Paternal Grandfather MELONOMA - Colon Cancer Maternal Aunt - Hypertension Sister - Cancer Other LYMPHOBLASTOMA GREAT GRANDMOTHER PATERNAL - Colon Cancer Maternal Grandmother - Heart / Stroke [OTHER] Maternal Grandmother AND CANCER OF STOMACH - Breast Cancer Maternal Aunt diagnosed in her 90's SOCIAL HISTORYSocial History Marital status: Spouse name: charmaine Years of education: 13.5 Number of children: 3 Occupational History Occupation Employer Comment retired [employer] Social History Main Topics Smoking status: Never Smoker Smokeless tobacco: Never Used Alcohol use: Yes 6.0 oz/week Comment: occasionally rare Drug use: No Sexual activity: Not Currently Partners with: Male MEDICATIONS/ALLERGIES Current Outpatient Prescriptions: diazePAM (VALIUM) 5 mg tablet Take 1 tablet by mouth twice daily as needed (vertigo or anxiety) for up to 90 days. Disp: 30 tablet Rfl: 2 lisinopril (ZESTRIL, PRINIVIL) 10 mg tablet TAKE 1 TABLET EVERY DAY Disp: 90 tablet Rfl: 3 diclofenac sodium (VOLTAREN) 1 % topical gel Apply 2 g to affected area four times daily. (Patient not taking: Reported on 07/29/2017 ) Disp: 100 g Rfl: 5 diclofenac sodium (PENNSAID) 20 mg/gram /actuation(2 %) sopm Prescribed by Dr. Paz Disp: Rfl: white petrolatum 94% - mineral oil 3% 94-3 % oint [facility] Disp: Rfl: propylene glycol-glycerin (SOOTHE) 0.6-0.6 % Use 2 Drops in both eyes as needed. Disp: Rfl: 0 levothyroxine (SYNTHROID) 50 mcg tablet Take 1 tablet by mouth once daily. Disp: 90 tablet Rfl: 3 esomeprazole (NEXIUM 24HR) 20 mg capsule Take 1 capsule by mouth once daily. Needs Namebrand over the counter, not generic. Disp: Rfl: Clobetasol Propionate 0.05 % lotn Apply to affected area. Disp: Rfl: gabapentin (NEURONTIN) 100 mg capsule Take 3 capsules at bedtime (Dr. Paz) (Patient taking differently: 300 mg daily at bedtime. Take 3 capsules at bedtime (Dr. 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 Disp: Rfl: docusate sodium (COLACE) 100 mg capsule Take 1 capsule by mouth twice daily as needed for Constipation. (Patient taking differently: Take 100 mg by mouth as needed for Constipation. ) Disp: Rfl: 0 Compression Knee Highs KNEE HIGH COMPRESSION STOCKINGS 20- 30 MM. DX: EDEMA 782.3, venous insuffiency 459.81(Futuro therapeutic open heel and open toe if available) Disp: 2 Each Rfl: 1 acetaminophen (TYLENOL) 325 mg tablet Take 650 mg by mouth every 6 hours as needed. Disp: Rfl: COMPOUNDED PRESCRIPTION Shackelford Antiseptic Powder (carbolic acid; zinc oxide) as needed per Dr. Arleen Burdick Disp: Rfl: 0 multivitamin ORAL tablet Take 1 tablet by mouth twice daily. Disp: Rfl: 0 No current facility-administered medications for this visit. ALLERGIES Allergen Reactions - Ekg Patches [Other] Hives skin gets red and raw needs hypoalergetic patches also any patch used for testing - Aggrenox [Aspirin-D* Other: See Comments Headache - Bactrim [Sulfametho* dizzy, redness, face flushed - Betadine [Povidone-* Rash - Cetacaine [Butamben* Other: See Comments excessive mucous production - Cigarettes [Other] Shortness of Breath Hard to breath/has a sensitivity not an allergy - Codeine Intolerance - Cortisone Shortness of Breath injection was given and swelled and had trouble breathing - Depomedrol [Other] Swelling FACE SWELLED AFTER CORTISONE SHOT IN KNEE - Detrol [Tolterodine* Intolerance HEAD ACHE ,DRY MOUTH - Ditropan [Oxybutyni* Intolerance DIZZY,SUN SENSITIVE - Latex Rash - Meclizine Swelling URINARY RETENTION,FACE FELT FUNNY - Metoprolol GI Upset headache.itching.hives. - Myrbetriq [Mirabegr* Other: See Comments elevated BP - Paper Tape [Other] Rash - Prevacid [Lansopraz* GI Upset GAS,BURPING HEADACHE - Prilosec [Omeprazol* Diarrhea - Tizanidine Other: See Comments increased pain - Zelnorm [Tegaserod * Hives REVIEW OF SYSTEMS Constitutional: No weight loss, malaise or fevers. HEENT: Negative for frequent or significant headaches, Ears Positive for hearing loss Respiratory: Positive for shortness of breath on exertion Cardiovascular: Positive for leg swelling Gatrointestinal: Negative for abdominal discomfort, blood in stools or black stools or change in bowel habits Genitourinary: No history of dysuria, frequency, or incontinence and No difficulty urination, nocturia >1 times per night or hematuria Musculoskeletal: Positive for back pain and joint pain Endocrine: Positive for cold intolerance Hematology/Lymphatic: Positive for bruises easily Neurologic: No history or headaches, syncope, paralysis, seizures or tremors Integumentary: Negative for lesions, rash, and itching. PHYSICAL EXAM VITALS: There were no vitals taken for this visit. General: Alert and oriented, No acute distress Integumentary: Normal color, no rash, no lesions. HEENT: EOM, pupils equal, round and reactive. Faint right cervical bruit Cardiovascular: Normal S1 AND S2, no rubs, murmurs or gallops. No JVD., Pulse regular. Lungs: Normal breath sounds, no wheezes or crackles. Abdomen: Soft, non-tender, no rigidity. Extremities: No deformity, no edema or tenderness, no joint swelling or clubbing. Neurological: Normal cognition and motor skills. Vascular: Posterior Tibial Right: Normal - Left: Normal Dorsalis Pedal Right: Normal - Left: Normal ASSESSMENT Peripheral arterial disease Small vessel disease Dizziness Diagnostic tests reviewed for today's visit: Lower Extremity Arterial Physiology Study Bilateral/Complete Date: 07/15/2017 IMPRESSION ? RIGHT SIDE ? Resting right ankle brachial index: 1.18 Right toe brachial index: 0.82 ? Normal ankle brachial index at rest in the right leg. Normal toe brachial index at rest in the right leg. ? Right ankle: Normal at rest. ? Right small vessel disease. ? LEFT SIDE ? Resting left ankle brachial index: 1.18 Left toe brachial index: 0.62 ? Normal ankle brachial index at rest in the left leg. Abnormal toe brachial index at rest is evidence of peripheral artery disease. ? Left ankle: Normal at rest. ? Left small vessel disease. PLAN/RECOMMENDATIONS Reviewed PVRs. Her toe pressures should be adequate for toe nail removal Recommend keeping feet warm and covered in the winter Recommend compression stockings while at work to help with edema control Will get carotid duplex and follow up after to assess for subclavian disease contributing to her dizziness SIGNATURE: Dai Maradiaga DO PATIENT NAME: Keshia Rojas DATE: September 08, 2017 TIME: 8:36 AM Referring Provider: SELF [200] Allergies As of Date: 09/08/2017 Noted Allergy Reaction ekg patches [Other] 02/20/2006 4 - Hives Comments: skin gets red and raw needs hypoalergetic patches also any patch used for testing AGGRENOX (ASPIRIN-DIPYRIDAMOLE) 05/27/2011 14 - Other: See Comments Comments: Headache BACTRIM (SULFAMETHOXAZOLE-TRIMETH*03/20/2006 Comments: dizzy, redness, face flushed BETADINE (POVIDONE-IODINE) 11/04/2006 2 - Rash CETACAINE ([id number]*09/11/2012 14 - Other: See Comments Comments: excessive mucous production cigarettes [Other] 02/22/2010 12 - Shortness of Breath Comments: Hard to breath/has a sensitivity not an allergy CODEINE 03/07/2006 5 - Intolerance CORTISONE 12 - Shortness of Breath Comments: injection was given and swelled and had trouble breathing DEPOMEDROL [Other] 03/07/2006 7 - Swelling Comments: FACE SWELLED AFTER CORTISONE SHOT IN KNEE DETROL (TOLTERODINE TARTRATE) 03/07/2006 5 - Intolerance Comments: HEAD ACHE ,DRY MOUTH DITROPAN (OXYBUTYNIN CHLORIDE) 03/07/2006 5 - Intolerance Comments: DIZZY,SUN SENSITIVE LATEX 11/03/2009 2 - Rash MECLIZINE 03/07/2006 7 - Swelling Comments: URINARY RETENTION,FACE FELT FUNNY METOPROLOL 04/24/2006 8 - GI Upset Comments: headache.itching.hives. MYRBETRIQ (MIRABEGRON) 12/26/2014 14 - Other: See Comments Comments: elevated BP paper tape [Other] 08/15/2006 2 - Rash PREVACID (LANSOPRAZOLE) 03/07/2006 8 - GI Upset Comments: GAS,BURPING HEADACHE PRILOSEC (OMEPRAZOLE MAGNESIUM) 6 - Diarrhea TIZANIDINE 03/24/2014 14 - Other: See Comments Comments: increased pain ZELNORM (TEGASEROD HYDROGEN RACHELL*03/07/2006 4 - Hives Date Reviewed: 09/08/2017 Reviewed by: Tristen Kelsey RN - Fully Assessed Reason for Visit: New Patient Evaluation [154] Primary Visit Diagnosis:Dizziness [R42] Order(s):US CAROTID [facility]ER[facility] [[id number]] Order #: [id number] FUTURE Prescriptions as of 09/08/2017 Sig: DIAZEPAM 5 MG TABLET Take 1 tablet by mouth twice * LISINOPRIL 10 MG TABLET TAKE 1 TABLET EVERY DAY DICLOFENAC 1 % TOPICAL GEL Apply 2 g to affected area fo* WHITE PETROLATUM-MINERAL OIL * [facility] PROPYLENE GLYCOL-GLYCERIN 0.6* Use 2 Drops in both eyes as n* LEVOTHYROXINE 50 MCG TABLET Take 1 tablet by mouth once d* ESOMEPRAZOLE MAGNESIUM 20 MG * Take 1 capsule by mouth once * GABAPENTIN 100 MG CAPSULE Take 3 capsules at bedtime (D* Patient taking differently: 300 mg daily at bedtime. Take* HYDROCODONE 5 MG-ACETAMINOPHE* Take 1 by mouth at bedtime ACETAMINOPHEN 325 MG TABLET Take 650 mg by mouth every 6 * COMPOUNDED PRESCRIPTION Shackelford Antiseptic Powder (c* X DIAZEPAM 5 MG TABLET Take 1 tablet by mouth twice * DICLOFENAC 20 MG/GRAM/ACTUATI* Prescribed by Dr. Paz Patient not taking: Reported on 09/08/2017 CLOBETASOL 0.05 % LOTION Apply to affected area. COMPOUNDED PRESCRIPTION SEMI ELECTRIC HOSPITAL BED AN* POVIDONE IODINE 2% IN 0.9% NA* Irrigate 2 Drops as instructe* DOCUSATE SODIUM 100 MG CAPSULE Take 1 capsule by mouth twice* Patient not taking: Reported on 09/08/2017 COMPOUNDED PRESCRIPTION KNEE HIGH COMPRESSION STOCKIN* * MULTIVITAMIN TABLET Take 1 tablet by mouth twice * Problem List As Of Date 09/08/2017 Noted Resolved Essential hypertension [I10] Acute, but ill-defined, cerebrovascular disease*INVALID FOR*12/28/2016 Priority: B More... Mixed hyperlipidemia [E78.2] Coronary atherosclerosis [I25.10] 1) Laparotomy 2) Joann gastroplasty 3) Wedge t* 06/30/2011 Priority: A More... IRRITABLE COLON [K58.9] DYSMETABOLIC SYNDROME X [E88.81] Hypothyroidism [E03.9] Priority: D More... DVT (deep venous thrombosis) (HCC) [I82.409] INVALID FOR*03/04/2017 Priority: G More... Anemia [D64.9] INVALID FOR* 1) Laparotomy 2) Joann gastroplasty 3) Wedge * Priority: A More... Obesity [E66.9] Discharge planning [Z71.89] INVALID FOR*09/03/2011 Priority: G More... Other acute postoperative pain [G89.18] INVALID FOR*09/03/2011 Priority: B More... 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 OAB (overactive bladder) [N32.81] INVALID FOR* Reversed peristalsis [R19.2] INVALID FOR* More... Stress incontinence [N39.3] INVALID FOR* Urge incontinence [N39.41] INVALID FOR* Frequency of urination [R35.0] INVALID FOR* Nocturia [R35.1] INVALID FOR* Kidney stone [N20.0] INVALID FOR* Anxiety [F41.9] INVALID FOR* Marital conflict [Z63.0] INVALID FOR* Cephalalgia [R51] INVALID FOR* IFG (impaired fasting glucose) [R73.01] INVALID FOR* Lipoma of right upper extremity [D17.21] INVALID FOR* Vertigo [R42] INVALID FOR* Falls, subsequent encounter [W19.XXXD] INVALID FOR* Acute pain of left shoulder [M25.512] INVALID FOR* Encounter Status:Closed by DAI MARADIAGA DO on 09/08/17 CNOV Observed: 09/04/2017 Status: COMPLETED Source: [place] 2:40 PM [facility] REPOSITORY Office Visit (FAMPWS) KESHIA ROJAS ([id number]) 1950 F Date Time Provider Department 09/04/17 2:40 PM OLGA GUPTA (FLOW TRADER) FAMPWS During your visit today, we recorded the following information about you: Pulse Respiration Blood pressure Weight 74/minute 12/minute 112/66 79.4 kg Olga Gupta APRN.CNP 09/04/2017 5:10 PM Signed HPI/CC: Keshia Rojas is a 67 year old female who presents to the office today for ER follow-up. She was to [facility] following c/o chest pain. Was at the ER on 09/02 with complaint of headache, vomiting, chest pain, and bilateral arm pain/numbness/tingling. Refers that she had chest pain that was really bad after eating. Refers that she was coughing out sputum. Refers that she had pain that was ascending up her arm and radiated into the back. Dx: Atypical chest pain. REVIEW OF SYSTEMS GENERAL: No weight loss, malaise or fevers/chills. Works at [employer] - refers that she doesn't eat/drink during a shift. HEENT: Losing some hearing in the left ear. + headaches - uses norco as needed. NECK: Negative for lumps, goiter, pain and significant neck swelling RESPIRATORY: Negative for cough, hemoptysis, wheezing, dyspnea or shortness of breath CARDIOVASCULAR: see above. GI: + nausea. Has been going to a food pantry. Refers it is normal for her to vomit prior to a BM -- has been going on the last 1-2 years. No hematochezia/melena. Follows with Dr. Chavarria. : Hx of dropped bladder with lift. Hx of being tacked in 1982. SKIN: Negative for lesions, rash, and itching NEURO: + headache. No syncope, paralysis, seizures or tremors. Gets n/t in the bilateral arms. Testing completed at the facility: CXRAY negative; EKG without acute changes, CBC, chemistry normal, troponin normal. Other specialist and follow up care: vascular. Pt also admits to some financial hardships. She's been going to the food pantry. She reports having to chose between medication and food. She has been working part-time at [employer]. She is agreeable to speaking with social science manager. Pt indicates that her pain is located between her sternum and umbilicus. Pt with normal stress test last year (07/2016). She does get headaches and reports usually will take norco. Describes like a band around her head. She admits to poor fluid intake. 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 (Dr. Charlton) - Cataracts, both eyes - Coronary atherosclerosis of unspecified type of vessel, douglas or graft minimal plaque on cath 08/06/2006 - DVT (deep venous thrombosis) (HCC) 2010 Right leg OCTOBER 2009 NOT TREATED - Dysmetabolic syndrome X - Esophageal reflux - Fibromyalgia better with Lyrica - Floppy eyelid syndrome - Hiatal hernia Large when seen on EGD 10/2010 at [facility] (Dr. 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 Chavarria - DANDC, DIAG AND/OR THERAPEUTIC 07/24/2005 Dilation AND curettage - EXC TUMOR SOFT TISS FOREARM AND/WRIST SUBQ 3+CM Right 11/04/15 Exc. right forearm lipoma - HYSTEROSCOPY, DIAGNOSTIC (SEPARATE 07/24/2005 Hysteroscopy - INTRO. 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 at 7o's - Cancer Paternal Grandfather MELONOMA - Colon Cancer Maternal Aunt - Hypertension Sister - Cancer Other LYMPHOBLASTOMA GREAT GRANDMOTHER PATERNAL - Colon Cancer Maternal Grandmother - Heart / Stroke [OTHER] Maternal Grandmother AND CANCER OF STOMACH - Breast Cancer Maternal Aunt diagnosed in her 90's Social History Marital status: Spouse name: charmaine Years of education: 13.5 Number of children: 3 Occupational History Occupation Employer Comment retired [employer]* Social History Main Topics Smoking status: Never Smoker Smokeless tobacco: Never Used Alcohol use: Yes 6.0 oz/week Comment: occasionally rare Drug use: No Sexual activity: Not Currently Partners with: Male Current Outpatient Prescriptions on File Prior to Visit: diazePAM (VALIUM) 5 mg tablet Take 1 tablet by mouth twice daily as needed (vertigo or anxiety) for up to 90 days. lisinopril (ZESTRIL, PRINIVIL) 10 mg tablet TAKE 1 TABLET EVERY DAY diclofenac sodium (VOLTAREN) 1 % topical gel Apply 2 g to affected area four times daily. (Patient not taking: Reported on 07/29/2017 ) diclofenac sodium (PENNSAID) 20 mg/gram /actuation(2 %) sopm Prescribed by Dr. Paz white petrolatum 94% - mineral oil 3% 94-3 % oint [facility] propylene glycol-glycerin (SOOTHE) 0.6-0.6 % Use 2 Drops in both eyes as needed. levothyroxine (SYNTHROID) 50 mcg tablet Take 1 tablet by mouth once daily. esomeprazole (NEXIUM 24HR) 20 mg capsule Take 1 capsule by mouth once daily. Needs Namebrand over the counter, not generic. Clobetasol Propionate 0.05 % lotn Apply to affected area. gabapentin (NEURONTIN) 100 mg capsule Take 3 capsules at bedtime (Dr. Paz) (Patient taking differently: 300 mg daily at bedtime. Take 3 capsules at bedtime (Dr. 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 docusate sodium (COLACE) 100 mg capsule Take 1 capsule by mouth twice daily as needed for Constipation. (Patient taking differently: Take 100 mg by mouth as needed for Constipation. ) Compression Knee Highs KNEE HIGH COMPRESSION STOCKINGS 20- 30 MM. DX: EDEMA 782.3, venous insuffiency 459.81(Futuro therapeutic open heel and open toe if available) acetaminophen (TYLENOL) 325 mg tablet Take 650 mg by mouth every 6 hours as needed. COMPOUNDED PRESCRIPTION Shackelford Antiseptic Powder (carbolic acid; zinc oxide) as needed per Dr. Arleen Burdick multivitamin ORAL tablet Take 1 tablet by mouth twice daily. No current facility-administered medications on file prior to visit. ALLERGIES Allergen Reactions - Ekg Patches [Other] Hives skin gets red and raw needs hypoalergetic patches also any patch used for testing - Aggrenox [Aspirin-D* Other: See Comments Headache - Bactrim [Sulfametho* dizzy, redness, face flushed - Betadine [Povidone-* Rash - Cetacaine [Butamben* Other: See Comments excessive mucous production - Cigarettes [Other] Shortness of Breath Hard to breath/has a sensitivity not an allergy - Codeine Intolerance - Cortisone Shortness of Breath injection was given and swelled and had trouble breathing - Depomedrol [Other] Swelling FACE SWELLED AFTER CORTISONE SHOT IN KNEE - Detrol [Tolterodine* Intolerance HEAD ACHE ,DRY MOUTH - Ditropan [Oxybutyni* Intolerance DIZZY,SUN SENSITIVE - Latex Rash - Meclizine Swelling URINARY RETENTION,FACE FELT FUNNY - Metoprolol GI Upset headache.itching.hives. - Myrbetriq [Mirabegr* Other: See Comments elevated BP - Paper Tape [Other] Rash - Prevacid [Lansopraz* GI Upset GAS,BURPING HEADACHE - Prilosec [Omeprazol* Diarrhea - Tizanidine Other: See Comments increased pain - Zelnorm [Tegaserod * Hives PHYSICAL EXAMINATION: BP 112/66 (BP Site: Left Arm, BP Position: Sitting, BP Cuff Size: Large Adult) Pulse 74 Resp 12 Wt 79.4 kg (175 lb) BMI 30.04 kg/m? General appearance: Well appearing, alert, in no acute distress, well-hydrated, well nourished. Teary at times. Skin: Skin color, texture, turgor normal, no suspicious rashes or lesions Head: Normocephalic, no masses, lesions, tenderness or abnormalities Eyes: Anicteric sclera. Pupils are equally round and reactive to light. Extraocular movements are intact. Ears: External ears normal, canals clear, TM's normal Oropharynx: Lips, mucosa, and tongue normal, teeth and gums normal, oropharynx normal Neck: Supple, no adenopathy; thyroid symmetric, normal size, no bruits Lungs: Lungs clear to auscultation. No wheezing, rhonchi, rales Heart: RRR without murmur, gallop, or rubs. No ectopy Abdomen: Abdomen soft with generalized upper and lower abdominal. Bowel sounds normal. No masses, organomegaly Extremities: No deformities, edema, skin discoloration, clubbing or cyanosis. Good capillary refill. Peripheral pulses: Normal Neuro: Gait normal with cane. ASSESSMENT/PLAN: 1. Chest pain, unspecified type - ICD9: 786.50, ICD10: R07.9 (primary diagnosis) Atypical chest pain, symptoms are not consistent with cardiac ischemia due to localization of the pain possible etiology include GERD Continue the nexium. Continue to follow per GI. 2. 1) Laparotomy 2) Joann gastroplasty 3) Wedge the gastric fundus 4) Robbie fundoplication - ICD9: 553.3, ICD10: K44.9 Continue to follow per GI. 3. Headache: Admits to poor fluid intake. Encouraged to increase fluids. 4. HTN At goal today. No changes. 5. Anxiety Refers increased stressors. with prostate CA. She has been working part-time. Refers that financial challenges and been going to the food pantry. Is agreeable to social science manager consult for recommendations. Discussed treatment plan and patient voices understanding. Patient's questions answered appropriately. Medications and potential side effects were discussed and patient voices understanding. Return to the office as scheduled or as needed for worsening/no improvement. Olga Gupta APRN.FLOW TRADER The majority of the visit was spent counseling and/or coordinating care for the patient. [id number] time was at least 25 minutes. Olga Gupta APRN.CNP 09/04/2017 3:29 PM Signed 1. Continue current medications. 2. Continue to follow with vascular surgeon as planned. 3. Continue nexium. 4. Continue to try for healthy diet/exercise. 5. Increase water intake. Referring Provider: SELF [200] Allergies As of Date: 09/04/2017 Noted Allergy Reaction ekg patches [Other] 02/20/2006 4 - Hives Comments: skin gets red and raw needs hypoalergetic patches also any patch used for testing AGGRENOX (ASPIRIN-DIPYRIDAMOLE) 05/27/2011 14 - Other: See Comments Comments: Headache BACTRIM (SULFAMETHOXAZOLE-TRIMETH*03/20/2006 Comments: dizzy, redness, face flushed BETADINE (POVIDONE-IODINE) 11/04/2006 2 - Rash CETACAINE ([id number]*09/11/2012 14 - Other: See Comments Comments: excessive mucous production cigarettes [Other] 02/22/2010 12 - Shortness of Breath Comments: Hard to breath/has a sensitivity not an allergy CODEINE 03/07/2006 5 - Intolerance CORTISONE 12 - Shortness of Breath Comments: injection was given and swelled and had trouble breathing DEPOMEDROL [Other] 03/07/2006 7 - Swelling Comments: FACE SWELLED AFTER CORTISONE SHOT IN KNEE DETROL (TOLTERODINE TARTRATE) 03/07/2006 5 - Intolerance Comments: HEAD ACHE ,DRY MOUTH DITROPAN (OXYBUTYNIN CHLORIDE) 03/07/2006 5 - Intolerance Comments: DIZZY,SUN SENSITIVE LATEX 11/03/2009 2 - Rash MECLIZINE 03/07/2006 7 - Swelling Comments: URINARY RETENTION,FACE FELT FUNNY METOPROLOL 04/24/2006 8 - GI Upset Comments: headache.itching.hives. MYRBETRIQ (MIRABEGRON) 12/26/2014 14 - Other: See Comments Comments: elevated BP paper tape [Other] 08/15/2006 2 - Rash PREVACID (LANSOPRAZOLE) 03/07/2006 8 - GI Upset Comments: GAS,BURPING HEADACHE PRILOSEC (OMEPRAZOLE MAGNESIUM) 6 - Diarrhea TIZANIDINE 03/24/2014 14 - Other: See Comments Comments: increased pain ZELNORM (TEGASEROD HYDROGEN RACHELL*03/07/2006 4 - Hives Date Reviewed: 09/04/2017 Reviewed by: Rodolfo Sheikh Commercial Lawn Specialist - Fully Assessed Reason for Visit: ED Follow-up [821] Cmt: [facility] Primary Visit Diagnosis:Chest pain, unspecified type [R07.9] Other Visit Diagnoses: 1) Laparotomy 2) Joann gastroplasty 3) Wedge the gastric fundus 4) Robbie fundoplication [K44.9] Headache, unspecified headache type [R51] Essential hypertension [I10] Anxiety [F41.9] Order(s):PRIMARY CARE SOCIAL WORK CONSULT [[id number]] Order #: [id number]: 1 Prescriptions as of 09/04/2017 Sig: DIAZEPAM 5 MG TABLET Take 1 tablet by mouth twice * LISINOPRIL 10 MG TABLET TAKE 1 TABLET EVERY DAY DICLOFENAC 1 % TOPICAL GEL Apply 2 g to affected area fo* DICLOFENAC 20 MG/GRAM/ACTUATI* Prescribed by Dr. Jackson WELLS PETROLATUM-MINERAL OIL * [facility] PROPYLENE GLYCOL-GLYCERIN 0.6* Use 2 Drops in both eyes as n* LEVOTHYROXINE 50 MCG TABLET Take 1 tablet by mouth once d* ESOMEPRAZOLE MAGNESIUM 20 MG * Take 1 capsule by mouth once * CLOBETASOL 0.05 % LOTION Apply to affected area. GABAPENTIN 100 MG CAPSULE Take 3 capsules at bedtime (D* Patient taking differently: 300 mg daily at bedtime. Take* COMPOUNDED PRESCRIPTION SEMI ELECTRIC HOSPITAL BED AN* HYDROCODONE 5 MG-ACETAMINOPHE* Take 1 by mouth at bedtime POVIDONE IODINE 2% IN 0.9% NA* Irrigate 2 Drops as instructe* DOCUSATE SODIUM 100 MG CAPSULE Take 1 capsule by mouth twice* Patient taking differently: Take 100 mg by mouth as neede* COMPOUNDED PRESCRIPTION KNEE HIGH COMPRESSION STOCKIN* ACETAMINOPHEN 325 MG TABLET Take 650 mg by mouth every 6 * COMPOUNDED PRESCRIPTION Shackelford Antiseptic Powder (c* * MULTIVITAMIN TABLET Take 1 tablet by mouth twice * Medication notes this encounter DICLOFENAC 20 MG/GRAM/ACTUATION (2 %) TOPICAL SOLN METERED- DOSE PUMP >> Rodolfo Sheikh Cma 09/04/2017 2:38 PM >> WORKRODOLFO CUENCA CMA [facility] Sep 04, 2017 2:38 PM Not using CLOBETASOL 0.05 % LOTION >> Rodolfo Sheikh Cma 09/04/2017 2:36 PM >> WORKRODOLFO CUENCA CMA [facility] Sep 04, 2017 2:36 PM Not using POVIDONE IODINE 2% IN 0.9% NACL IRRIGATION 1000 ML >> Rodolfo Sheikh [facility] 09/04/2017 2:40 PM >> RODOLFO SHEIKH CMA [facility] Sep 04, 2017 2:40 PM Not using DOCUSATE SODIUM 100 MG CAPSULE >> Rodolfo Sheikh [facility] 09/04/2017 2:38 PM >> RODOLFO SHEIKH CMA [facility] Sep 04, 2017 2:38 PM Not taking MULTIVITAMIN TABLET >> Rodolfo Sheikh [facility] 09/04/2017 2:39 PM >> RODOLFO SHEIKH CMA [facility] Sep 04, 2017 2:39 PM Not taking Problem List As Of Date 09/04/2017 Noted Resolved Essential hypertension [I10] Acute, but ill-defined, cerebrovascular disease*INVALID FOR*12/28/2016 Priority: B More... Mixed hyperlipidemia [E78.2] Coronary atherosclerosis [I25.10] 1) Laparotomy 2) Joann gastroplasty 3) Wedge t* 06/30/2011 Priority: A More... IRRITABLE COLON [K58.9] DYSMETABOLIC SYNDROME X [E88.81] Hypothyroidism [E03.9] Priority: D More... DVT (deep venous thrombosis) ([facility]) [I82.409] INVALID FOR*03/04/2017 Priority: G More... Anemia [D64.9] INVALID FOR* 1) Laparotomy 2) Joann gastroplasty 3) Wedge * Priority: A More... Obesity [E66.9] Discharge planning [Z71.89] INVALID FOR*09/03/2011 Priority: G More... Other acute postoperative pain [G89.18] INVALID FOR*09/03/2011 Priority: B More... 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 OAB (overactive bladder) [N32.81] INVALID FOR* Reversed peristalsis [R19.2] INVALID FOR* More... Stress incontinence [N39.3] INVALID FOR* Urge incontinence [N39.41] INVALID FOR* Frequency of urination [R35.0] INVALID FOR* Nocturia [R35.1] INVALID FOR* Kidney stone [N20.0] INVALID FOR* Anxiety [F41.9] INVALID FOR* Marital conflict [Z63.0] INVALID FOR* Cephalalgia [R51] INVALID FOR* IFG (impaired fasting glucose) [R73.01] INVALID FOR* Lipoma of right upper extremity [D17.21] INVALID FOR* Vertigo [R42] INVALID FOR* Falls, subsequent encounter [W19.XXXD] INVALID FOR* Acute pain of left shoulder [M25.512] INVALID FOR* Other instructions from your clinician: 1. Continue current medications. 2. Continue to follow with vascular surgeon as planned. 3. Continue nexium. 4. Continue to try for healthy diet/exercise. 5. Increase water intake. Encounter Status:Closed by OLGA GUPTA CNP on 09/04/17 PROGRESS Observed: 09/04/2017 Status: COMPLETED Source: [place] 2:39 PM [facility] [place] REPOSITORY HNO ID: [id number] Author: Olga Winter) Candy Service: (none) Author Type: Nurse Practitioner Type: Progress Notes Filed: 09/04/2017 5:10 PM Note Text: HPI/CC: Keshia Rojas is a 67 year old female who presents to the office today for ER follow-up. She was to [facility] following c/o chest pain. Was at the ER on 09/02 with complaint of headache, vomiting, chest pain, and bilateral arm pain/numbness/tingling. Refers that she had chest pain that was really bad after eating. Refers that she was coughing out sputum. Refers that she had pain that was ascending up her arm and radiated into the back. Dx: Atypical chest pain. REVIEW OF SYSTEMS GENERAL: No weight loss, malaise or fevers/chills. Works at [employer] - refers that she doesn't eat/drink during a shift. HEENT: Losing some hearing in the left ear. + headaches - uses norco as needed. NECK: Negative for lumps, goiter, pain and significant neck swelling RESPIRATORY: Negative for cough, hemoptysis, wheezing, dyspnea or shortness of breath CARDIOVASCULAR: see above. GI: + nausea. Has been going to a food pantry. Refers it is normal for her to vomit prior to a BM -- has been going on the last 1-2 years. No hematochezia/melena. Follows with Dr. Chavarria. : Hx of dropped bladder with lift. Hx of being tacked in 1982. SKIN: Negative for lesions, rash, and itching NEURO: + headache. No syncope, paralysis, seizures or tremors. Gets n/t in the bilateral arms. Testing completed at the facility: CXRAY negative; EKG without acute changes, CBC, chemistry normal, troponin normal. Other specialist and follow up care: vascular. Pt also admits to some financial hardships. She's been going to the food pantry. She reports having to chose between medication and food. She has been working part-time at [employer]. She is agreeable to speaking with social science manager. Pt indicates that her pain is located between her sternum and umbilicus. Pt with normal stress test last year (07/2016). She does get headaches and reports usually will take norco. Describes like a band around her head. She admits to poor fluid intake. 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 (Dr. Charlton) - Cataracts, both eyes - Coronary atherosclerosis of unspecified type of vessel, douglas or graft minimal plaque on cath 08/06/2006 - DVT (deep venous thrombosis) (HCC) 2010 Right leg OCTOBER 2009 NOT TREATED - Dysmetabolic syndrome X - Esophageal reflux - Fibromyalgia better with Lyrica - Floppy eyelid syndrome - Hiatal hernia Large when seen on EGD 10/2010 at [facility] (Dr. 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 Chavarria - DANDC, DIAG AND/OR THERAPEUTIC 07/24/2005 Dilation AND curettage - EXC TUMOR SOFT TISS FOREARM AND/WRIST SUBQ 3+CM Right 11/04/15 Exc. right forearm lipoma - HYSTEROSCOPY, DIAGNOSTIC (SEPARATE 07/24/2005 Hysteroscopy - INTRO. 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 at 7o's - Cancer Paternal Grandfather MELONOMA - Colon Cancer Maternal Aunt - Hypertension Sister - Cancer Other LYMPHOBLASTOMA GREAT GRANDMOTHER PATERNAL - Colon Cancer Maternal Grandmother - Heart / Stroke [OTHER] Maternal Grandmother AND CANCER OF STOMACH - Breast Cancer Maternal Aunt diagnosed in her 90's Social History Marital status: Spouse name: charmaine Years of education: 13.5 Number of children: 3 Occupational History Occupation Employer Comment retired [employer]* Social History Main Topics Smoking status: Never Smoker Smokeless tobacco: Never Used Alcohol use: Yes 6.0 oz/week Comment: occasionally rare Drug use: No Sexual activity: Not Currently Partners with: Male Current Outpatient Prescriptions on File Prior to Visit: diazePAM (VALIUM) 5 mg tablet Take 1 tablet by mouth twice daily as needed (vertigo or anxiety) for up to 90 days. lisinopril (ZESTRIL, PRINIVIL) 10 mg tablet TAKE 1 TABLET EVERY DAY diclofenac sodium (VOLTAREN) 1 % topical gel Apply 2 g to affected area four times daily. (Patient not taking: Reported on 07/29/2017 ) diclofenac sodium (PENNSAID) 20 mg/gram /actuation(2 %) sopm Prescribed by Dr. Jackson wells petrolatum 94% - mineral oil 3% 94-3 % [facility] propylene glycol-glycerin (SOOTHE) 0.6-0.6 % Use 2 Drops in both eyes as needed. levothyroxine (SYNTHROID) 50 mcg tablet Take 1 tablet by mouth once daily. esomeprazole (NEXIUM 24HR) 20 mg capsule Take 1 capsule by mouth once daily. Needs Namebrand over the counter, not generic. Clobetasol Propionate 0.05 % lotn Apply to affected area. gabapentin (NEURONTIN) 100 mg capsule Take 3 capsules at bedtime (Dr. Paz) (Patient taking differently: 300 mg daily at bedtime. Take 3 capsules at bedtime (Dr. 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 docusate sodium (COLACE) 100 mg capsule Take 1 capsule by mouth twice daily as needed for Constipation. (Patient taking differently: Take 100 mg by mouth as needed for Constipation. ) Compression Knee Highs KNEE HIGH COMPRESSION STOCKINGS 20- 30 MM. DX: EDEMA 782.3, venous insuffiency 459.81(Futuro therapeutic open heel and open toe if available) acetaminophen (TYLENOL) 325 mg tablet Take 650 mg by mouth every 6 hours as needed. COMPOUNDED PRESCRIPTION Shack[place]ord Antiseptic Powder (carbolic acid; zinc oxide) as needed per Dr. Arleen Burdick multivitamin ORAL tablet Take 1 tablet by mouth twice daily. No current facility-administered medications on file prior to visit. ALLERGIES Allergen Reactions - Ekg Patches [Other] Hives skin gets red and raw needs hypoalergetic patches also any patch used for testing - Aggrenox [Aspirin-D* Other: See Comments Headache - Bactrim [Sulfametho* dizzy, redness, face flushed - Betadine [Povidone-* Rash - Cetacaine [Butamben* Other: See Comments excessive mucous production - Cigarettes [Other] Shortness of Breath Hard to breath/has a sensitivity not an allergy - Codeine Intolerance - Cortisone Shortness of Breath injection was given and swelled and had trouble breathing - Depomedrol [Other] Swelling FACE SWELLED AFTER CORTISONE SHOT IN KNEE - Detrol [Tolterodine* Intolerance HEAD ACHE ,DRY MOUTH - Ditropan [Oxybutyni* Intolerance DIZZY,SUN SENSITIVE - Latex Rash - Meclizine Swelling URINARY RETENTION,FACE FELT FUNNY - Metoprolol GI Upset headache.itching.hives. - Myrbetriq [Mirabegr* Other: See Comments elevated BP - Paper Tape [Other] Rash - Prevacid [Lansopraz* GI Upset GAS,BURPING HEADACHE - Prilosec [Omeprazol* Diarrhea - Tizanidine Other: See Comments increased pain - Zelnorm [Tegaserod * Hives PHYSICAL EXAMINATION: BP 112/66 (BP Site: Left Arm, BP Position: Sitting, BP Cuff Size: Large Adult) Pulse 74 Resp 12 Wt 79.4 kg (175 lb) BMI 30.04 kg/m? General appearance: Well appearing, alert, in no acute distress, well-hydrated, well nourished. Teary at times. Skin: Skin color, texture, turgor normal, no suspicious rashes or lesions Head: Normocephalic, no masses, lesions, tenderness or abnormalities Eyes: Anicteric sclera. Pupils are equally round and reactive to light. Extraocular movements are intact. Ears: External ears normal, canals clear, TM's normal Oropharynx: Lips, mucosa, and tongue normal, teeth and gums normal, oropharynx normal Neck: Supple, no adenopathy; thyroid symmetric, normal size, no bruits Lungs: Lungs clear to auscultation. No wheezing, rhonchi, rales Heart: RRR without murmur, gallop, or rubs. No ectopy Abdomen: Abdomen soft with generalized upper and lower abdominal. Bowel sounds normal. No masses, organomegaly Extremities: No deformities, edema, skin discoloration, clubbing or cyanosis. Good capillary refill. Peripheral pulses: Normal Neuro: Gait normal with cane. ASSESSMENT/PLAN: 1. Chest pain, unspecified type - ICD9: 786.50, ICD10: R07.9 (primary diagnosis) Atypical chest pain, symptoms are not consistent with cardiac ischemia due to localization of the pain possible etiology include GERD Continue the nexium. Continue to follow per GI. 2. 1) Laparotomy 2) Joann gastroplasty 3) Wedge the gastric fundus 4) Robbie fundoplication - ICD9: 553.3, ICD10: K44.9 Continue to follow per GI. 3. Headache: Admits to poor fluid intake. Encouraged to increase fluids. 4. HTN At goal today. No changes. 5. Anxiety Refers increased stressors. with prostate CA. She has been working part-time. Refers that financial challenges and been going to the food pantry. Is agreeable to social science manager consult for recommendations. Discussed treatment plan and patient voices understanding. Patient's questions answered appropriately. Medications and potential side effects were discussed and patient voices understanding. Return to the office as scheduled or as needed for worsening/no improvement. Olga Gupta APRN.FLOW TRADER The majority of the visit was spent counseling and/or coordinating care for the patient. Bmdf-ta-[id number] time was at least 25 minutes. 12 LEAD ELECTROCARDIOGRAM Observed: 09/04/2017 Status: F Source: [place] 8:56 AM [facility] Cardiovascular Services [address] [place] [address] [place] [address] 12 Lead EKG 09/02/17 1037 MR#: [id number] Acct: [id number] Name: KESHIA ROJAS Rep #: [id number] : 1950 67 From: Julian Paul MD Attending Dr: Status: DEP ER Ordering Dr: Ellie Mullins DO Date: 09/02/17 Location: ED Sex: F C Admitted: Test Reason : CP Blood Pressure : / mmHG Vent. Rate : 074 BPM Atrial Rate : 074 BPM P-R Int : 184 ms QRS Dur : 072 ms QT Int : 388 ms P-R-T Axes : 047 -46 -07 degrees QTc Int : 430 ms Normal sinus rhythm Left axis deviation Low voltage QRS Inferior infarct , age undetermined Abnormal ECG Confirmed by JULIAN PAUL MD ([id number]), film and video editor CARTER HADDAD ([id number]) on 09/04/2017 8:56:15 AM Referred By: YOLANDA Confirmed By:JULIAN PAUL MD 09/04/17 0856 Date Julian Paul MD CC: Paulo Scott MD; Ellie Mullins DO Signed DISCHARGE INSTRUCTION Observed: 09/02/2017 Status: F Source: [place] 12:02 PM [facility] REPOSITORY [facility] Medical Records Department [address] [place] [address] Discharge Instruction 09/02/17 1201 MR#: [id number] Acct: [id number] Name: KESHIA ROJAS Rep #: [id number] : 1950 67 From: Ellie Mullins DO PCP: Paulo Scott MD Status: REG ER ED Disposition - Plan for ED Patient: Chief Complaint: Upper Extremity Injury Instructions: ED Chest Pain Atypical Unkn Cause, ED Cervical Radiculopathy Referrals: Paulo Scott MD [Primary Care Provider] - 5-7 Days What to do if you have Problems For any increased pain, shortness of breath, bleeding, nausea or vomiting, chest pain, or any unexpected problems, contact your Primary Care Provider. Call [facility] ([phone]) or report to the closest Emergency Room. Call 911 if necessary. 09/02/17 1202 <Electronically signed by Ellie Mullins DO> Date Ellie Mullins DO Cosigner Signature (If Indicated): Date CC: Paulo Scott MD EMERGENCY DEPARTMENT Observed: 09/02/2017 Status: F Source: [place] SUMMARY 12:01 PM [facility] REPOSITORY [facility] Medical Records Department [address] [place] [address] Emergency Department Summary 09/02/17 1157 MR#: [id number] Acct: [id number] Name: KESHIA ROJAS Rep #: [id number] : 1950 67 From: Ellie Mullins DO PCP: Paulo Scott MD Status: REG ER - ER Visit Summary Date of Service: 09/02/17 Chief Complaint: [Chest pain and left arm pain] History of Present Illness: The patient is a 67 F [presents to the emergency department with complaint of retrosternal chest discomfort that she has had for years. Patient states the discomfort seems to come and go. Patient states the discomfort is worse with certain physicians. Patient states the discomfort goes away if she lays on her side. Patient states that she became more concerned as over the last 2 weeks she has had some intermittent discomfort into her left arm. Patient describes discomfort that starts in her left pinky and radiates to the elbow than the shoulder into her back. Patient is also had intermittent headaches that seem to get better with medication that she has at home such as gabapentin and Valium. Patient denies any neck pain. She denies any fever or recent illness. Patient does not have exertional chest pain or shortness of breath.] Physical Examination: [HEENT-PERRLA, EOMI. Cranial nerves II through XII grossly intact. TMs clear. Mucous membranes moist. No adenopathy. Cardiovascular-regular rate and rhythm without murmur or ectopy Lungs-clear to auscultation, chest wall stable without crepitus or subcu emphysema Abdomen-normoactive bowel sounds, soft, nontender, no rebound or rigidity, no peritoneal signs. Extremities-intact 4, normal range of motion, normal pulses, atraumatic]. Patient has no tenderness to the left arm on palpation and has normal reflexes at the bicep, tricep, and brachial radialis. 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 Test Results: [EKG obtained on arrival showed a sinus rhythm with a ventricular rate of 74 bpm with an old inferior infarct noted. CBC with differential was normal. Chemistries unremarkable. Troponin was less than 0.015. Chest x-ray showed nothing acute.] Emergency Department Course and Treatment: [] Treatment Plan: [Patient follow-up with her neurosurgeon regarding the pain in her left arm with the next 5-7 days. As I suspect she may have a neuropathy or cervical radiculopathy. Patient to follow-up with her primary care physician regarding her chest discomfort although I do not feel this is cardiac as it is very atypical and positional.] Disposition: [Discharged home in stable condition] Impression: [Atypical chest pain Left arm pain-suspect neuropathy versus cervical radiculopathy] This note was generated with [employer] software. It may contain incorrect words, spelling, and punctuation that were not noted in review of the chart prior to signing ED Disposition - Plan for ED Patient: Chief Complaint: Upper Extremity Injury Referrals: Paulo Scott MD [Primary Care Provider] - What to do if you have Problems For any increased pain, shortness of breath, bleeding, nausea or vomiting, chest pain, or any unexpected problems, contact your Primary Care Provider. Call [facility] ([phone]) or report to the closest Emergency Room. Call 911 if necessary. 09/02/17 1201 <Electronically signed by Ellie Mullins DO> Date Ellie Mullins DO Cosigner Signature (If Indicated): Date CC: Paulo Scott MD CBC W/DIFF, AUTOMATED Collected: 09/02/2017 Status: F Source: [place] 11:15 AM [facility] REPOSITORY TYPE CODE TESTS RESULT OUT OF RANGE REFERENCE UNITS LAB L100.1000 4.4-11.0 K/mm3 Normal WBC 7.9 LAB L100.1200 4.2-5.4 M/mm3 Normal RBC 4.56 LAB L100.1300 12.0-15.0 g/dl Normal HGB 14.0 LAB L100.1400 37-47 % Normal HCT 42.9 LAB L100.1500 81-99 fL Normal MCV 94.1 LAB L100.1600 27.0-32.0 pg Normal MCH 30.7 LAB L100.1700 32-36 g/gl Normal MCHC 32.6 LAB L100.1810 11.6-14.6 % Normal RDW CV 13.4 LAB L100.1820 35.1-43.9 fl High RDW SD 46.2 LAB L100.1900 150-450 K/mm3 Normal PLT 280 LAB L100.2000 6.2-12.0 fl Normal MPV 9.2 LAB L100.2100 47-70 % Normal NEUT% 55.8 LAB L100.2200 19-41 % Normal LY% 28.1 LAB L100.2300 0-10 % High MONO% 10.7 LAB L100.2400 0-5 % Normal EO% 4.8 LAB L100.2500 0-1 % Normal BASO% 0.5 LAB L100.2550 0.0-0.9 % Normal IM GRAN % 0.100 Result Comment: IG% - Immature Granulocytes (promyelocytes, myelocytes and metamyelocytes) > 1% indicates that a LEFT SHIFT is Present. LAB L100.2620 2.0-7.7 X10 3/uL Normal Absolute Neut 4.4 LAB L100.2720 0.83-4.51 X10 3/ul Normal Absolute Lymph 2.21 Performed By: #### L100.0100 #### [facility] [address] [place], [address] BASIC METABOLIC Collected: 09/02/2017 Status: F Source: [place] PROFILE (BMP) 11:15 AM [facility] REPOSITORY TYPE CODE TESTS RESULT OUT OF RANGE REFERENCE UNITS LAB L501.0100 74-106 mg/dL Normal GLU 84 Result Comment: Please note revised GLUCOSE reference range effective 2017. LAB L501.1000 7-18 mg/dL Normal BUN 18 LAB L501.1100 0.55-1.02 mg/dL Normal CREAT,SERUM 0.90 Result Comment: The validity of the calculated GFR AND GFRAA in patients over 70 years has not been determined. Clinical correlation is essential. LAB L501.1110 >60 mL/min Normal EST GFR 67 Result Comment: Non- GFR Calc LAB L501.1115 >60 mL/min Normal EST GFR - AA 81 Result Comment: GFR Calc LAB L501.1255 ml/min Normal Estimated CRCL 52.38 LAB L501.1300 10-20 RATIO High BUN/CRE 20.1 LAB L501.2200 8.5-10 mg/dL Normal .1 CA 9.0 LAB L501.5300 136-14 mmol/L Normal 5 NA 141 LAB L501.5600 3.5-5. mmol/L Normal 1 K 3.8 LAB L501.5900 98-107 mmol/L High CL 108 LAB L501.6100 21.0-3 mmol/L Normal 2.0 CO2 26.0 LAB L501.6200 5-15 Normal GAP 7 Performed By: #### L500.2500, L501.4010 #### [facility] [address] [place], [address] TROPONIN-I Collected: 09/02/2017 Status: F Source: [place] 11:15 AM [facility] REPOSITORY TYPE CODE TESTS RESULT OUT OF RANGE REFERENCE UNITS LAB L501.4010 <0.045 ng/mL Normal < 0.015 TROPONIN-I Result Comment: TROPONIN-I EXPECTED VALUES <0.045 Negative 0.045 - 0.590 Consistent with Cardiac Damage > OR = 0.600 Critical Value Not every elevated troponin is indicative of OR. These values should be used with clinical judgement in examining the patient's clinical picture for diagnosis. To establish a diagnosis of OR versus myocardial injury, there must be a demonstrated rise and/or fall in the troponin values, in addition to ischemic symptoms, EKG changes, new regional wall motion abnormality, and/or angiographical evidence. PLEASE NOTE: REFERENCE RANGES EDITED 17 Performed By: #### L500.2500, L501.4010 #### [facility] [address] [place], [address] CHEST 1 VIEW Observed: 09/02/2017 Status: F Source: [place] (PORTABLE) 11:03 AM [facility] REPOSITORY [facility] Imaging Services [address] [place] [address] Chest 1 View (Portable) MR#: [id number] Acct: [id number] Name: CRYSTALKESHIA Rep #: [id number] : 1950 F 67 From: Venkata Singer MD PCP: Paulo Scott MD Status: PRE ER Study: Chest 1 View (Portable) Date of Exam: 09/02/17 Exam# [id number] Ordering Dr: Ellie Mullins DO STUDY: X-RAY CHEST REASON FOR EXAM: Female, 67 years old. Chest pain. TECHNIQUE: Single AP portable view of the chest. COMPARISON: None. FINDINGS: The lungs are clear and expanded. There is no demonstrated pleural abnormality. Normal size heart. Normal mediastinum and prince. Normal visualized pulmonary arteries. There is atherosclerotic tortuosity of the aortic arch and descending thoracic aorta. There is a levoscoliosis of the thoracic spine. Normal visualized ribs, clavicles, and shoulders. There is no demonstrated abnormality of the visualized soft tissue structures of the upper abdomen. RAD/Chest 1 View (Portable) IMPRESSION: No acute abnormality is seen. Electronically Signed: Venkata Singer MD at 11:33 EDT Tel [phone], Service support , CC: Paulo Scott MD; Ellie Mullins DO Healthcare Educator: Signed PROGRESS Observed: 09/01/2017 Status: COMPLETED Source: [place] 3:19 PM [facility] REPOSITORY HNO ID: [id number] Author: Dai Maradiaga Service: (none) Author Type: Physician Type: Progress Notes Filed: 09/08/2017 9:37 AM Note Text: VASCULAR SURGERY INITIAL CONSULT SERVICE DATE: 09/08/2017 SERVICE TIME: 8:36 AM PRIMARY CARE PHYSICIAN: Paulo Scott MD Consult requested for an opinion regarding the evaluation and treatment of the above. My final impression and recommendations will be communicated back to the requesting physician by way of the shared medical record or letter via US mail. CHIEF COMPLAINT/HISTORY OF PRESENT ILLNESS: Chief Complaint: PAD History of Present Illness: Keshia Rojas is a 67 year old female referred for follow-up on PAD and possible surgical removal of ingrown left great toenail. Ms. Rojas reports history of DVT, HTN, HLD. Ms. Rojas reports occasional leg/feet swelling, especially since re-starting working again (states she is on her feet all day, works at [employer]). She states she occasionally wears compression, but does elevate her legs when she is able. She also reports arm swelling, worse in the left, for which she has been wearing her leg compression on her arm. Ms. Rojas states she has been told she has a pinched nerve, which is causing her arm pain. She denies wounds or ulcerations on her feet or legs, however, does have some patches of dryness on her feet. Ms. Rojas is a nonsmoker. She reports symptoms of Raynaud's- which include pain and discoloration in feet/toes during the winter. 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 (Dr. Charlton) - Cataracts, both eyes - Coronary atherosclerosis of unspecified type of vessel, douglas or graft minimal plaque on cath 08/06/2006 - DVT (deep venous thrombosis) ([facility]) 2010 Right leg OCTOBER 2009 NOT TREATED - Dysmetabolic syndrome X - Esophageal reflux - Fibromyalgia better with Lyrica - Floppy eyelid syndrome - Hiatal hernia Large when seen on EGD 10/2010 at [facility] (Dr. 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 Chavarria - DANDC, DIAG AND/OR THERAPEUTIC 07/24/2005 Dilation AND curettage - EXC TUMOR SOFT TISS FOREARM AND/WRIST SUBQ 3+CM Right 11/04/15 Exc. right forearm lipoma - HYSTEROSCOPY, DIAGNOSTIC (SEPARATE 07/24/2005 Hysteroscopy - INTRO. 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 at 7o's - Cancer Paternal Grandfather MELONOMA - Colon Cancer Maternal Aunt - Hypertension Sister - Cancer Other LYMPHOBLASTOMA GREAT GRANDMOTHER PATERNAL - Colon Cancer Maternal Grandmother - Heart / Stroke [OTHER] Maternal Grandmother AND CANCER OF STOMACH - Breast Cancer Maternal Aunt diagnosed in her 90's SOCIAL HISTORYSocial History Marital status: Spouse name: charmaine Years of education: 13.5 Number of children: 3 Occupational History Occupation Employer Comment retired [employer]* Social History Main Topics Smoking status: Never Smoker Smokeless tobacco: Never Used Alcohol use: Yes 6.0 oz/week Comment: occasionally rare Drug use: No Sexual activity: Not Currently Partners with: Male MEDICATIONS/ALLERGIES Current Outpatient Prescriptions: diazePAM (VALIUM) 5 mg tablet Take 1 tablet by mouth twice daily as needed (vertigo or anxiety) for up to 90 days. Disp: 30 tablet Rfl: 2 lisinopril (ZESTRIL, PRINIVIL) 10 mg tablet TAKE 1 TABLET EVERY DAY Disp: 90 tablet Rfl: 3 diclofenac sodium (VOLTAREN) 1 % topical gel Apply 2 g to affected area four times daily. (Patient not taking: Reported on 07/29/2017 ) Disp: 100 g Rfl: 5 diclofenac sodium (PENNSAID) 20 mg/gram /actuation(2 %) sopm Prescribed by Dr. Paz Disp: Rfl: white petrolatum 94% - mineral oil 3% 94-3 % oint Dr. [facility] Disp: Rfl: propylene glycol-glycerin (SOOTHE) 0.6-0.6 % Use 2 Drops in both eyes as needed. Disp: Rfl: 0 levothyroxine (SYNTHROID) 50 mcg tablet Take 1 tablet by mouth once daily. Disp: 90 tablet Rfl: 3 esomeprazole (NEXIUM 24HR) 20 mg capsule Take 1 capsule by mouth once daily. Needs Namebrand over the counter, not generic. Disp: Rfl: Clobetasol Propionate 0.05 % lotn Apply to affected area. Disp: Rfl: gabapentin (NEURONTIN) 100 mg capsule Take 3 capsules at bedtime (Dr. Paz) (Patient taking differently: 300 mg daily at bedtime. Take 3 capsules at bedtime (Dr. 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 Disp: Rfl: docusate sodium (COLACE) 100 mg capsule Take 1 capsule by mouth twice daily as needed for Constipation. (Patient taking differently: Take 100 mg by mouth as needed for Constipation. ) Disp: Rfl: 0 Compression Knee Highs KNEE HIGH COMPRESSION STOCKINGS 20- 30 MM. DX: EDEMA 782.3, venous insuffiency 459.81(Futuro therapeutic open heel and open toe if available) Disp: 2 Each Rfl: 1 acetaminophen (TYLENOL) 325 mg tablet Take 650 mg by mouth every 6 hours as needed. Disp: Rfl: COMPOUNDED PRESCRIPTION [place] Antiseptic Powder (carbolic acid; zinc oxide) as needed per Dr. Arleen Burdick Disp: Rfl: 0 multivitamin ORAL tablet Take 1 tablet by mouth twice daily. Disp: Rfl: 0 No current facility-administered medications for this visit. ALLERGIES Allergen Reactions - Ekg Patches [Other] Hives skin gets red and raw needs hypoalergetic patches also any patch used for testing - Aggrenox [Aspirin-D* Other: See Comments Headache - Bactrim [Sulfametho* dizzy, redness, face flushed - Betadine [Povidone-* Rash - Cetacaine [Butamben* Other: See Comments excessive mucous production - Cigarettes [Other] Shortness of Breath Hard to breath/has a sensitivity not an allergy - Codeine Intolerance - Cortisone Shortness of Breath injection was given and swelled and had trouble breathing - Depomedrol [Other] Swelling FACE SWELLED AFTER CORTISONE SHOT IN KNEE - Detrol [Tolterodine* Intolerance HEAD ACHE ,DRY MOUTH - Ditropan [Oxybutyni* Intolerance DIZZY,SUN SENSITIVE - Latex Rash - Meclizine Swelling URINARY RETENTION,FACE FELT FUNNY - Metoprolol GI Upset headache.itching.hives. - Myrbetriq [Mirabegr* Other: See Comments elevated BP - Paper Tape [Other] Rash - Prevacid [Lansopraz* GI Upset GAS,BURPING HEADACHE - Prilosec [Omeprazol* Diarrhea - Tizanidine Other: See Comments increased pain - Zelnorm [Tegaserod * Hives REVIEW OF SYSTEMS Constitutional: No weight loss, malaise or fevers. HEENT: Negative for frequent or significant headaches, Ears Positive for hearing loss Respiratory: Positive for shortness of breath on exertion Cardiovascular: Positive for leg swelling Gatrointestinal: Negative for abdominal discomfort, blood in stools or black stools or change in bowel habits Genitourinary: No history of dysuria, frequency, or incontinence and No difficulty urination, nocturia >1 times per night or hematuria Musculoskeletal: Positive for back pain and joint pain Endocrine: Positive for cold intolerance Hematology/Lymphatic: Positive for bruises easily Neurologic: No history or headaches, syncope, paralysis, seizures or tremors Integumentary: Negative for lesions, rash, and itching. PHYSICAL EXAM VITALS: There were no vitals taken for this visit. General: Alert and oriented, No acute distress Integumentary: Normal color, no rash, no lesions. HEENT: EOM, pupils equal, round and reactive. Faint right cervical bruit Cardiovascular: Normal S1 AND S2, no rubs, murmurs or gallops. No JVD., Pulse regular. Lungs: Normal breath sounds, no wheezes or crackles. Abdomen: Soft, non-tender, no rigidity. Extremities: No deformity, no edema or tenderness, no joint swelling or clubbing. Neurological: Normal cognition and motor skills. Vascular: Posterior Tibial Right: Normal - Left: Normal Dorsalis Pedal Right: Normal - Left: Normal ASSESSMENT Peripheral arterial disease Small vessel disease Dizziness Diagnostic tests reviewed for today's visit: Lower Extremity Arterial Physiology Study Bilateral/Complete Date: 07/15/2017 IMPRESSION ? RIGHT SIDE ? Resting right ankle brachial index: 1.18 Right toe brachial index: 0.82 ? Normal ankle brachial index at rest in the right leg. Normal toe brachial index at rest in the right leg. ? Right ankle: Normal at rest. ? Right small vessel disease. ? LEFT SIDE ? Resting left ankle brachial index: 1.18 Left toe brachial index: 0.62 ? Normal ankle brachial index at rest in the left leg. Abnormal toe brachial index at rest is evidence of peripheral artery disease. ? Left ankle: Normal at rest. ? Left small vessel disease. PLAN/RECOMMENDATIONS Reviewed PVRs. Her toe pressures should be adequate for toe nail removal Recommend keeping feet warm and covered in the winter Recommend compression stockings while at work to help with edema control Will get carotid duplex and follow up after to assess for subclavian disease contributing to her dizziness SIGNATURE: Dai Maradiaga DO PATIENT NAME: Keshia Rojas DATE: September 08, 2017 TIME: 8:36 AM PROGRESS Observed: 08/28/2017 Status: COMPLETED Source: [place] 5:04 PM [facility] RE[facility] HNO ID: [id number] Author: Juan Rose) Michael Service: (none) Author Type: Nurse Specialist Type: Progress Notes Filed: 08/28/2017 5:17 PM Note Text: OUTPATIENT VISIT DATE August 28, 2017 OUTPATIENT VISIT TYPE ESTABLISHED PRIMARY CARE PHYSICIAN: Paulo Scott MD CHIEF COMPLAINT: Patient presents with: Recheck: 3 month follow up History of Present Illness: Keshia Rojas is a 67 year old female who was last seen 02/2017 by Paulo Scott MD. Last seen in 05/2017. 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 Takes valium for vertigo, anxiety, sleep. Reports taking valium daily at night, no AE noted. Reports is working well. She reports increased stress since her was diagnosed with cancer. Follows with Dr. Basali for pain management. Last visit she reported falling and Yoel Rodriguez. She reports since then she's gone to physical therapy twice. Hypothyroidism. She is doing well on her current dose of Synthroid. TSH (uU/mL) Date Value 02/10/2017 2.580 11/05/2016 2.160 ) HTN: Ms. Rjoas indicates that she is without headache, chest pain, palpitations, dyspnea, peripheral edema, orthopnea, fatigue and PND. like taking medication. No adverse effects. Last 3 Encounter BP Readings: Date: BP: 08/28/2017 130/86 07/03/2017 138/82 05/26/2017 126/72 GERD: She status post Robbie fundoplication. Reports following with Dr. Coleman Reports financial constraints but defers consult to social work today. No recent hospital or ED visits. No new medical problems or medications. Able to obtain medications. No problems with taking medications or note side effects. 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 (Dr. Charlton) - Cataracts, both eyes - Coronary atherosclerosis of unspecified type of vessel, douglas or graft minimal plaque on cath 08/06/2006 - DVT (deep venous thrombosis) (HCC) 2010 Right leg OCTOBER 2009 NOT TREATED - Dysmetabolic syndrome X - Esophageal reflux - Fibromyalgia better with Lyrica - Floppy eyelid syndrome - Hiatal hernia Large when seen on EGD 10/2010 at [facility] (Dr. 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 Chavarria - DANDC, DIAG AND/OR THERAPEUTIC 07/24/2005 Dilation AND curettage - EXC TUMOR SOFT TISS FOREARM AND/WRIST SUBQ 3+CM Right 11/04/15 Exc. right forearm lipoma - HYSTEROSCOPY, DIAGNOSTIC (SEPARATE 07/24/2005 Hysteroscopy - INTRO. 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 at 7o's - Cancer Paternal Grandfather MELONOMA - Colon Cancer Maternal Aunt - Hypertension Sister - Cancer Other LYMPHOBLASTOMA GREAT GRANDMOTHER PATERNAL - Colon Cancer Maternal Grandmother - Heart / Stroke [OTHER] Maternal Grandmother AND CANCER OF STOMACH - Breast Cancer Maternal Aunt diagnosed in her 90's Social History Substance Use Topics - Smoking status: Never Smoker - Smokeless tobacco: Never Used - Alcohol use 6.0 oz/week Comment: occasionally rare ALLERGIES: ALLERGIES Allergen Reactions - Ekg Patches [Other] Hives skin gets red and raw needs hypoalergetic patches also any patch used for testing - Aggrenox [Aspirin-D* Other: See Comments Headache - Bactrim [Sulfametho* dizzy, redness, face flushed - Betadine [Povidone-* Rash - Cetacaine [Butamben* Other: See Comments excessive mucous production - Cigarettes [Other] Shortness of Breath Hard to breath/has a sensitivity not an allergy - Codeine Intolerance - Cortisone Shortness of Breath injection was given and swelled and had trouble breathing - Depomedrol [Other] Swelling FACE SWELLED AFTER CORTISONE SHOT IN KNEE - Detrol [Tolterodine* Intolerance HEAD ACHE ,DRY MOUTH - Ditropan [Oxybutyni* Intolerance DIZZY,SUN SENSITIVE - Latex Rash - Meclizine Swelling URINARY RETENTION,FACE FELT FUNNY - Metoprolol GI Upset headache.itching.hives. - Myrbetriq [Mirabegr* Other: See Comments elevated BP - Paper Tape [Other] Rash - Prevacid [Lansopraz* GI Upset GAS,BURPING HEADACHE - Prilosec [Omeprazol* Diarrhea - Tizanidine Other: See Comments increased pain - Zelnorm [Tegaserod * Hives MEDICATIONS diazePAM (VALIUM) 5 mg tablet Take 1 tablet by mouth twice daily as needed (vertigo or anxiety) for up to 90 days. lisinopril (ZESTRIL, PRINIVIL) 10 mg tablet TAKE 1 TABLET EVERY DAY white petrolatum 94% - mineral oil 3% 94-3 % oint [facility] propylene glycol-glycerin (SOOTHE) 0.6-0.6 % Use 2 Drops in both eyes as needed. levothyroxine (SYNTHROID) 50 mcg tablet Take 1 tablet by mouth once daily. esomeprazole (NEXIUM 24HR) 20 mg capsule Take 1 capsule by mouth once daily. Needs Namebrand over the counter, not generic. gabapentin (NEURONTIN) 100 mg capsule Take 3 capsules at bedtime (Dr. Paz) HYDROcodone-acetaminophen (NORCO) 5-325 mg per tablet Take 1 by mouth at bedtime docusate sodium (COLACE) 100 mg capsule Take 1 capsule by mouth twice daily as needed for Constipation. COMPOUNDED PRESCRIPTION [place] Antiseptic Powder (carbolic acid; zinc oxide) as needed per Dr. Arleen Burdick diclofenac sodium (VOLTAREN) 1 % topical gel Apply 2 g to affected area four times daily. diclofenac sodium (PENNSAID) 20 mg/gram /actuation(2 %) sopm Prescribed by Dr. Paz Clobetasol Propionate 0.05 % lotn Apply to affected area. COMPOUNDED PRESCRIPTION SEMI ELECTRIC HOSPITAL BED AND MATTRESS, with side rails Diagnoses: (K22.70) 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; (K21.9) Gastroesophageal reflux disease, esophagitis presence not specified; (I87.303) Stasis edema of both lower extremities; (R11.10) Regurgitation of food sodium chloride 0.9 % soln 1,000 mL with povidone-iodine 10 % soln 20 mL Irrigate 2 Drops as instructed once daily. Compression Knee Highs KNEE HIGH COMPRESSION STOCKINGS 20- 30 MM. DX: EDEMA 782.3, venous insuffiency 459.81(Futuro therapeutic open heel and open toe if available) acetaminophen (TYLENOL) 325 mg tablet Take 650 mg by mouth every 6 hours as needed. multivitamin ORAL tablet Take 1 tablet by mouth twice daily. REVIEW OF SYSTEMS: GENERAL: Negative for: Weight loss or gain, Fever or Chills, Weakness and Sleep difficulties. Physical Examination: BP 130/86 Pulse 80 Resp 16 Wt 174 lb (78.9kg) Extended Vitals not filed for this encounter. General appearance: Well appearing, alert, in no acute distress, well-hydrated, well nourished. Card: Regular rate and rhythm, no murmur gallop or rub Lungs: Clear to auscultation Skin: Skin color, texture, turgor normal, no suspicious rashes or lesions Extremities: No deformities, edema, skin discoloration, clubbing or cyanosis. Good capillary refill. Musculoskeletal: Muscular strength intact, No joint swelling, deformity, or tenderness Peripheral pulses: Decreased DP Neuro: Gait slow and appears painful. Sensation grossly intact. Reviewed chart, outside records, tests [place]RS website checked and validated. All prescriptions have been APPROPRIATELY filled. No suspicious activity was identified.- 05/26/2017 by Juan Rodriguez SPICE MIXER I personally interviewed, confirmed and edited the above information if obtained by others. TESTING: Glucose (mg/dL) Date Value 05/22/2017 111 Potassium (mmol/L) Date Value 05/22/2017 4.6 Sodium (mmol/L) Date Value 05/22/2017 141 Chloride (mmol/L) Date Value 05/22/2017 103 CO2 (mmol/L) Date Value 05/22/2017 26 Creatinine (mg/dL) Date Value 05/22/2017 0.76 BUN (mg/dL) Date Value 05/22/2017 14 Anion Gap (mmol/L) Date Value 05/22/2017 12 Calcium (mg/dL) Date Value 05/22/2017 9.8 Glucose (mg/dL) Date Value 05/22/2017 111 Potassium (mmol/L) Date Value 05/22/2017 4.6 Sodium (mmol/L) Date Value 05/22/2017 141 Chloride (mmol/L) Date Value 05/22/2017 103 CO2 (mmol/L) Date Value 05/22/2017 26 Creatinine (mg/dL) Date Value 05/22/2017 0.76 BUN (mg/dL) Date Value 05/22/2017 14 Anion Gap (mmol/L) Date Value 05/22/2017 12 Calcium (mg/dL) Date Value 05/22/2017 9.8 Protein, Total (g/dL) Date Value 01/02/2016 7.5 Albumin (g/dL) Date Value 01/02/2016 4.4 Bilirubin, Total (mg/dL) Date Value 01/02/2016 0.5 Alkaline Phosphatase (U/L) Date Value 01/02/2016 70 AST (U/L) Date Value 01/02/2016 17 ALT (U/L) Date Value 01/02/2016 21 Hemoglobin (g/dL) Date Value 01/02/2016 15.6 Hematocrit (%) Date Value 01/02/2016 47.5 WBC (k/uL) Date Value 01/02/2016 14.50 Cholesterol, Total (mg/dL) Date Value 05/22/2017 205 HDL Cholesterol (mg/dL) Date Value 05/22/2017 54 LDL Cholesterol (mg/dL) Date Value 05/22/2017 126 Triglyceride (mg/dL) Date Value 05/22/2017 124 Hemoglobin A1C Date Value Ref Range Status 05/22/2017 5.9 (H) 4.3 - 5.6 % Final 11/05/2016 6.1 (H) 4.3 - 5.6 % Final Comment: [place] [employer] guidelines indicate that patients with HgbA1c in the range 5.7-6.4% are at increased risk for development of diabetes, and intervention by lifestyle modification may be beneficial. HgbA1c greater or equal to 6.5% is considered diagnostic of diabetes. 06/19/2016 6.3 (H) 4.3 - 5.6 % Final Comment: [place] [employer] guidelines indicate that patients with HgbA1c in the range 5.7-6.4% are at increased risk for development of diabetes, and intervention by lifestyle modification may be beneficial. HgbA1c greater or equal to 6.5% is considered diagnostic of diabetes. 03/12/2016 6.2 (H) 4.3 - 5.6 % Final Comment: [place] [employer] guidelines indicate that patients with HgbA1c in the range 5.7-6.4% are at increased risk for development of diabetes, and intervention by lifestyle modification may be beneficial. HgbA1c greater or equal to 6.5% is considered diagnostic of diabetes. 01/02/2016 6.2 (H) 4.3 - 5.6 % Final Comment: [place] [employer] guidelines indicate that patients with HgbA1c in the range 5.7-6.4% are at increased risk for development of diabetes, and intervention by lifestyle modification may be beneficial. HgbA1c greater or equal to 6.5% is considered diagnostic of diabetes. Component Latest Ref Rng AND Units 06/19/2016 11/05/2016 05/22/2017 Glucose 74 - 99 mg/dL 111 (H) 111 (H) BUN 7 - 21 mg/dL 15 14 Creatinine 0.58 - 0.96 mg/dL 0.88 0.76 Sodium 136 - 144 mmol/L 141 141 Potassium 3.7 - 5.1 mmol/L 3.8 4.6 Chloride 97 - 105 mmol/L 101 103 CO2 22 - 30 mmol/L 27 26 Anion Gap 9 - 18 mmol/L 13 12 Calcium 8.5 - 10.2 mg/dL 9.4 9.8 eGFR- >60 >60 eGFR-All Other Races . >60 >60 Triglyceride <150 mg/dL 158 (H) 124 Cholesterol, Total <200 mg/dL 199 205 (H) HDL Cholesterol >39 mg/dL 47 (L) 54 VLDL Cholesterol <30 mg/dL 32 25 LDL Cholesterol <100 mg/dL 120 126 (H) Fasting Time hrs 14 10 TC:HDL Ratio <5.10 4.23 3.80 LDL:HDL Ratio <2.54 2.55 2.33 Non HDL Cholesterol <130 mg/dL 152 151 (H) Hemoglobin A1C 4.3 - 5.6 % 6.1 (H) 5.9 (H) Estimated Average Glucose mg/dL 128 123 Ejection Fraction - Result: 70 % Date: 09/13/2010 Time: 13:45:55 IMPRESSION: Ms. Rojas is a 67 year old woman presents for follow up visit. After my examination and review of data, I make the following recommendations. PLAN AND RECOMMENDATIONS: 1. Fall, subsequent encounter - ICD9: V58.89, E888.9, ICD10: W19.XXXD Continue with home exercises and physical therapy - CONSULT TO PHYSICAL THERAPY 2. Anxiety - ICD9: 300.00, ICD10: F41.9 Continue with valium at bedtime. She reports concerns about her but declines social work appt at this time, has seen previously. She will let us know if concerns about and would like additional intervention 3. Hypothyroidism, unspecified type - ICD9: 244.9, ICD10: E03.9 - Instructed patient on importance of taking on an empty stomach either first thing in the morning or at bedtime. - continue current dose of Synthroid - TSH BLD - T3 FREE BLD - T4 FREE/FREE THYROX - COMP METABOLIC PANEL - CBC + DIFF 2. Essential hypertension - ICD9: 401.9, ICD10: I10 - good control - Continue current medication(s) - Recommended regular aerobic exercise. - Goal of BP <130/80 - COMP METABOLIC PANEL - CBC + DIFF 3. Mixed hyperlipidemia - ICD9: 272.2, ICD10: E78.2 Lipid panel - COMP METABOLIC PANEL - CBC + DIFF 4. Dysmetabolic syndrome X - ICD9: 277.7, ICD10: E88.81 - COMP METABOLIC PANEL - CBC + DIFF 5. 1) Laparotomy 2) Joann gastroplasty 3) Wedge the gastric fundus 4) Robbie fundoplication - ICD9: 553.3, ICD10: K44.[address] Coleman, has had colonoscopy 2014, unsure when last EGD - CBC + DIFF Follow up with Dr. Scott 3 months. Make appointment with physical therapy to continue to work on fall prevention, lower extremity strengthening Advised to go to ER if develops chest pain, shortness of breath, or severe worsening of symptoms. Discussed risks, benefits, alternatives, and potential side effects of medications. Ms. Rojas expressed understanding and agreed with the plan. SANDRA Retana CNOV Observed: 08/28/2017 Status: COMPLETED Source: [place] 3:20 PM [facility] REPOSITORY Office Visit (INTMWS) KESHIA ROJAS ([id number]) 1950 F Date Time Provider Department 08/28/17 3:20 PM JUAN RODRIGUEZ (SANDAR) INTMWS During your visit today, we recorded the following information about you: Pulse Respiration Blood pressure Weight 80/minute 16/minute 130/86 78.9 kg Juan Rodriguez APRN.CNS 08/28/2017 4:07 PM Signed Follow up with Dr. Scott 3 months. Make appointment with physical therapy Juan Rodriguez APRN.CNS 08/28/2017 5:17 PM Signed OUTPATIENT VISIT DATE August 28, 2017 OUTPATIENT VISIT TYPE ESTABLISHED PRIMARY CARE PHYSICIAN: Paulo Scott MD CHIEF COMPLAINT: Patient presents with: Recheck: 3 month follow up History of Present Illness: Keshia Rojas is a 67 year old female who was last seen 02/2017 by Paulo Scott MD. Last seen in 05/2017. 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 Takes valium for vertigo, anxiety, sleep. Reports taking valium daily at night, no AE noted. Reports is working well. She reports increased stress since her was diagnosed with cancer. Follows with Dr. Paz for pain management. Last visit she reported falling and Yoel Rodriguez. She reports since then she's gone to physical therapy twice. Hypothyroidism. She is doing well on her current dose of Synthroid. TSH (uU/mL) Date Value 02/10/2017 2.580 11/05/2016 2.160 ) HTN: Ms. Rojas indicates that she is without headache, chest pain, palpitations, dyspnea, peripheral edema, orthopnea, fatigue and PND. like taking medication. No adverse effects. Last 3 Encounter BP Readings: Date: BP: 08/28/2017 130/86 07/03/2017 138/82 05/26/2017 126/72 GERD: She status post Robbie fundoplication. Reports following with Dr. Coleman Reports financial constraints but defers consult to social work today. No recent hospital or ED visits. No new medical problems or medications. Able to obtain medications. No problems with taking medications or note side effects. 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 (Dr. Charlton) - Cataracts, both eyes - Coronary atherosclerosis of unspecified type of vessel, douglas or graft minimal plaque on cath 08/06/2006 - DVT (deep venous thrombosis) (HCC) 2010 Right leg OCTOBER 2009 NOT TREATED - Dysmetabolic syndrome X - Esophageal reflux - Fibromyalgia better with Lyrica - Floppy eyelid syndrome - Hiatal hernia Large when seen on EGD 10/2010 at [facility] (Dr. 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 Chavarria - DANDC, DIAG AND/OR THERAPEUTIC 07/24/2005 Dilation AND curettage - EXC TUMOR SOFT TISS FOREARM AND/WRIST SUBQ 3+CM Right 11/04/15 Exc. right forearm lipoma - HYSTEROSCOPY, DIAGNOSTIC (SEPARATE 07/24/2005 Hysteroscopy - INTRO. 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 at 7o's - Cancer Paternal Grandfather MELONOMA - Colon Cancer Maternal Aunt - Hypertension Sister - Cancer Other LYMPHOBLASTOMA GREAT GRANDMOTHER PATERNAL - Colon Cancer Maternal Grandmother - Heart / Stroke [OTHER] Maternal Grandmother AND CANCER OF STOMACH - Breast Cancer Maternal Aunt diagnosed in her 90s Social History Substance Use Topics - Smoking status: Never Smoker - Smokeless tobacco: Never Used - Alcohol use 6.0 oz/week Comment: occasionally rare ALLERGIES: ALLERGIES Allergen Reactions - Ekg Patches [Other] Hives skin gets red and raw needs hypoalergetic patches also any patch used for testing - Aggrenox [Aspirin-D* Other: See Comments Headache - Bactrim [Sulfametho* dizzy, redness, face flushed - Betadine [Povidone-* Rash - Cetacaine [Butamben* Other: See Comments excessive mucous production - Cigarettes [Other] Shortness of Breath Hard to breath/has a sensitivity not an allergy - Codeine Intolerance - Cortisone Shortness of Breath injection was given and swelled and had trouble breathing - Depomedrol [Other] Swelling FACE SWELLED AFTER CORTISONE SHOT IN KNEE - Detrol [Tolterodine* Intolerance HEAD ACHE ,DRY MOUTH - Ditropan [Oxybutyni* Intolerance DIZZY,SUN SENSITIVE - Latex Rash - Meclizine Swelling URINARY RETENTION,FACE FELT FUNNY - Metoprolol GI Upset headache.itching.hives. - Myrbetriq [Mirabegr* Other: See Comments elevated BP - Paper Tape [Other] Rash - Prevacid [Lansopraz* GI Upset GAS,BURPING HEADACHE - Prilosec [Omeprazol* Diarrhea - Tizanidine Other: See Comments increased pain - Zelnorm [Tegaserod * Hives MEDICATIONS diazePAM (VALIUM) 5 mg tablet Take 1 tablet by mouth twice daily as needed (vertigo or anxiety) for up to 90 days. lisinopril (ZESTRIL, PRINIVIL) 10 mg tablet TAKE 1 TABLET EVERY DAY white petrolatum 94% - mineral oil 3% 94-3 % oint [facility] propylene glycol-glycerin (SOOTHE) 0.6-0.6 % Use 2 Drops in both eyes as needed. levothyroxine (SYNTHROID) 50 mcg tablet Take 1 tablet by mouth once daily. esomeprazole (NEXIUM 24HR) 20 mg capsule Take 1 capsule by mouth once daily. Needs Namebrand over the counter, not generic. gabapentin (NEURONTIN) 100 mg capsule Take 3 capsules at bedtime (Dr. Paz) HYDROcodone-acetaminophen (NORCO) 5-325 mg per tablet Take 1 by mouth at bedtime docusate sodium (COLACE) 100 mg capsule Take 1 capsule by mouth twice daily as needed for Constipation. COMPOUNDED PRESCRIPTION [place] Antiseptic Powder (carbolic acid; zinc oxide) as needed per Dr. Arleen Burdick diclofenac sodium (VOLTAREN) 1 % topical gel Apply 2 g to affected area four times daily. diclofenac sodium (PENNSAID) 20 mg/gram /actuation(2 %) sopm Prescribed by Dr. Paz Clobetasol Propionate 0.05 % lotn Apply to affected area. COMPOUNDED PRESCRIPTION SEM[facility] ELECTRIC HOSPITAL BED AND MATTRESS, with side rails Diagnoses: (K22.70) 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; (K21.9) Gastroesophageal reflux disease, esophagitis presence not specified; (I87.303) Stasis edema of both lower extremities; (R11.10) Regurgitation of food sodium chloride 0.9 % soln 1,000 mL with povidone-iodine 10 % soln 20 mL Irrigate 2 Drops as instructed once daily. Compression Knee Highs KNEE HIGH COMPRESSION STOCKINGS 20- 30 MM. DX: EDEMA 782.3, venous insuffiency 459.81(Futuro therapeutic open heel and open toe if available) acetaminophen (TYLENOL) 325 mg tablet Take 650 mg by mouth every 6 hours as needed. multivitamin ORAL tablet Take 1 tablet by mouth twice daily. REVIEW OF SYSTEMS: GENERAL: Negative for: Weight loss or gain, Fever or Chills, Weakness and Sleep difficulties. Physical Examination: BP 130/86 Pulse 80 Resp 16 Wt 174 lb (78.9kg) Extended Vitals not filed for this encounter. General appearance: Well appearing, alert, in no acute distress, well-hydrated, well nourished. Card: Regular rate and rhythm, no murmur gallop or rub Lungs: Clear to auscultation Skin: Skin color, texture, turgor normal, no suspicious rashes or lesions Extremities: No deformities, edema, skin discoloration, clubbing or cyanosis. Good capillary refill. Musculoskeletal: Muscular strength intact, No joint swelling, deformity, or tenderness Peripheral pulses: Decreased DP Neuro: Gait slow and appears painful. Sensation grossly intact. Reviewed chart, outside records, tests OAS website checked and validated. All prescriptions have been APPROPRIATELY filled. No suspicious activity was identified.- 05/26/2017 by Juan Rodriguez SPICE MIXER I personally interviewed, confirmed and edited the above information if obtained by others. TESTING: Glucose (mg/dL) Date Value 05/22/2017 111 Potassium (mmol/L) Date Value 05/22/2017 4.6 Sodium (mmol/L) Date Value 05/22/2017 141 Chloride (mmol/L) Date Value 05/22/2017 103 CO2 (mmol/L) Date Value 05/22/2017 26 Creatinine (mg/dL) Date Value 05/22/2017 0.76 BUN (mg/dL) Date Value 05/22/2017 14 Anion Gap (mmol/L) Date Value 05/22/2017 12 Calcium (mg/dL) Date Value 05/22/2017 9.8 Glucose (mg/dL) Date Value 05/22/2017 111 Potassium (mmol/L) Date Value 05/22/2017 4.6 Sodium (mmol/L) Date Value 05/22/2017 141 Chloride (mmol/L) Date Value 05/22/2017 103 CO2 (mmol/L) Date Value 05/22/2017 26 Creatinine (mg/dL) Date Value 05/22/2017 0.76 BUN (mg/dL) Date Value 05/22/2017 14 Anion Gap (mmol/L) Date Value 05/22/2017 12 Calcium (mg/dL) Date Value 05/22/2017 9.8 Protein, Total (g/dL) Date Value 01/02/2016 7.5 Albumin (g/dL) Date Value 01/02/2016 4.4 Bilirubin, Total (mg/dL) Date Value 01/02/2016 0.5 Alkaline Phosphatase (U/L) Date Value 01/02/2016 70 AST (U/L) Date Value 01/02/2016 17 ALT (U/L) Date Value 01/02/2016 21 Hemoglobin (g/dL) Date Value 01/02/2016 15.6 Hematocrit (%) Date Value 01/02/2016 47.5 WBC (k/uL) Date Value 01/02/2016 14.50 Cholesterol, Total (mg/dL) Date Value 05/22/2017 205 HDL Cholesterol (mg/dL) Date Value 05/22/2017 54 LDL Cholesterol (mg/dL) Date Value 05/22/2017 126 Triglyceride (mg/dL) Date Value 05/22/2017 124 Hemoglobin A1C Date Value Ref Range Status 05/22/2017 5.9 (H) 4.3 - 5.6 % Final 11/05/2016 6.1 (H) 4.3 - 5.6 % Final Comment: [place] [employer] guidelines indicate that patients with HgbA1c in the range 5.7-6.4% are at increased risk for development of diabetes, and intervention by lifestyle modification may be beneficial. HgbA1c greater or equal to 6.5% is considered diagnostic of diabetes. 06/19/2016 6.3 (H) 4.3 - 5.6 % Final Comment: [place] [employer] guidelines indicate that patients with HgbA1c in the range 5.7-6.4% are at increased risk for development of diabetes, and intervention by lifestyle modification may be beneficial. HgbA1c greater or equal to 6.5% is considered diagnostic of diabetes. 03/12/2016 6.2 (H) 4.3 - 5.6 % Final Comment: [place] [employer] guidelines indicate that patients with HgbA1c in the range 5.7-6.4% are at increased risk for development of diabetes, and intervention by lifestyle modification may be beneficial. HgbA1c greater or equal to 6.5% is considered diagnostic of diabetes. 01/02/2016 6.2 (H) 4.3 - 5.6 % Final Comment: [place] [employer] guidelines indicate that patients with HgbA1c in the range 5.7-6.4% are at increased risk for development of diabetes, and intervention by lifestyle modification may be beneficial. HgbA1c greater or equal to 6.5% is considered diagnostic of diabetes. Component Latest Ref Rng AND Units 06/19/2016 11/05/2016 05/22/2017 Glucose 74 - 99 mg/dL 111 (H) 111 (H) BUN 7 - 21 mg/dL 15 14 Creatinine 0.58 - 0.96 mg/dL 0.88 0.76 Sodium 136 - 144 mmol/L 141 141 Potassium 3.7 - 5.1 mmol/L 3.8 4.6 Chloride 97 - 105 mmol/L 101 103 CO2 22 - 30 mmol/L 27 26 Anion Gap 9 - 18 mmol/L 13 12 Calcium 8.5 - 10.2 mg/dL 9.4 9.8 eGFR- >60 >60 eGFR-All Other Races . >60 >60 Triglyceride <150 mg/dL 158 (H) 124 Cholesterol, Total <200 mg/dL 199 205 (H) HDL Cholesterol >39 mg/dL 47 (L) 54 VLDL Cholesterol <30 mg/dL 32 25 LDL Cholesterol <100 mg/dL 120 126 (H) Fasting Time hrs 14 10 TC:HDL Ratio <5.10 4.23 3.80 LDL:HDL Ratio <2.54 2.55 2.33 Non HDL Cholesterol <130 mg/dL 152 151 (H) Hemoglobin A1C 4.3 - 5.6 % 6.1 (H) 5.9 (H) Estimated Average Glucose mg/dL 128 123 Ejection Fraction - Result: 70 % Date: 09/13/2010 Time: 13:45:55 IMPRESSION: Ms. Rojas is a 67 year old woman presents for follow up visit. After my examination and review of data, I make the following recommendations. PLAN AND RECOMMENDATIONS: 1. Fall, subsequent encounter - ICD9: V58.89, E888.9, ICD10: W19.XXXD Continue with home exercises and physical therapy - CONSULT TO PHYSICAL THERAPY 2. Anxiety - ICD9: 300.00, ICD10: F41.9 Continue with valium at bedtime. She reports concerns about her but declines social work appt at this time, has seen previously. She will let us know if concerns about and would like additional intervention 3. Hypothyroidism, unspecified type - ICD9: 244.9, ICD10: E03.9 - Instructed patient on importance of taking on an empty stomach either first thing in the morning or at bedtime. - continue current dose of Synthroid - TSH BLD - T3 FREE BLD - T4 FREE/FREE THYROX - COMP METABOLIC PANEL - CBC + DIFF 2. Essential hypertension - ICD9: 401.9, ICD10: I10 - good control - Continue current medication(s) - Recommended regular aerobic exercise. - Goal of BP <130/80 - COMP METABOLIC PANEL - CBC + DIFF 3. Mixed hyperlipidemia - ICD9: 272.2, ICD10: E78.2 Lipid panel - COMP METABOLIC PANEL - CBC + DIFF 4. Dysmetabolic syndrome X - ICD9: 277.7, ICD10: E88.81 - COMP METABOLIC PANEL - CBC + DIFF 5. 1) Laparotomy 2) Joann gastroplasty 3) Wedge the gastric fundus 4) Robbie fundoplication - ICD9: 553.3, ICD10: K44.[address] Coleman, has had colonoscopy 2014, unsure when last EGD - CBC + DIFF Follow up with Dr. Scott 3 months. Make appointment with physical therapy to continue to work on fall prevention, lower extremity strengthening Advised to go to ER if develops chest pain, shortness of breath, or severe worsening of symptoms. Discussed risks, benefits, alternatives, and potential side effects of medications. Ms. Rojas expressed understanding and agreed with the plan. Juan Rodriguez, SPICE MIXER Referring Provider: PAULO SCOTT [[id number]] Allergies As of Date: 08/28/2017 Noted Allergy Reaction ekg patches [Other] 02/20/2006 4 - Hives Comments: skin gets red and raw needs hypoalergetic patches also any patch used for testing AGGRENOX (ASPIRIN-DIPYRIDAMOLE) 05/27/2011 14 - Other: See Comments Comments: Headache BACTRIM (SULFAMETHOXAZOLE-TRIMETH*03/20/2006 Comments: dizzy, redness, face flushed BETADINE (POVIDONE-IODINE) 11/04/2006 2 - Rash CETACAINE (XKIKPGFO-PMNZQLBSLP-GD*09/11/2012 14 - Other: See Comments Comments: excessive mucous production cigarettes [Other] 02/22/2010 12 - Shortness of Breath Comments: Hard to breath/has a sensitivity not an allergy CODEINE 03/07/2006 5 - Intolerance CORTISONE 12 - Shortness of Breath Comments: injection was given and swelled and had trouble breathing DEPOMEDROL [Other] 03/07/2006 7 - Swelling Comments: FACE SWELLED AFTER CORTISONE SHOT IN KNEE DETROL (TOLTERODINE TARTRATE) 03/07/2006 5 - Intolerance Comments: HEAD ACHE ,DRY MOUTH DITROPAN (OXYBUTYNIN CHLORIDE) 03/07/2006 5 - Intolerance Comments: DIZZY,SUN SENSITIVE LATEX 11/03/2009 2 - Rash MECLIZINE 03/07/2006 7 - Swelling Comments: URINARY RETENTION,FACE FELT FUNNY METOPROLOL 04/24/2006 8 - GI Upset Comments: headache.itching.hives. MYRBETRIQ (MIRABEGRON) 12/26/2014 14 - Other: See Comments Comments: elevated BP paper tape [Other] 08/15/2006 2 - Rash PREVACID (LANSOPRAZOLE) 03/07/2006 8 - GI Upset Comments: GAS,BURPING HEADACHE PRILOSEC (OMEPRAZOLE MAGNESIUM) 6 - Diarrhea TIZANIDINE 03/24/2014 14 - Other: See Comments Comments: increased pain ZELNORM (TEGASEROD HYDROGEN RACHELL*03/07/2006 4 - Hives Date Reviewed: 08/28/2017 Reviewed by: Brayan Larson LPN - Fully Assessed Reason for Visit: Recheck [92] Cmt: 3 month follow up Primary Visit Diagnosis:Hypothyroidism, unspecified type [E03.9] Other Visit Diagnoses:Essential hypertension [I10] Mixed hyperlipidemia [E78.2] Dysmetabolic syndrome X [E88.81] 1) Laparotomy 2) Joann gastroplasty 3) Wedge the gastric fundus 4) Robbie fundoplication [K44.9] Anxiety [F41.9] Fall, subsequent encounter [W19.XXXD] Order(s):TSH BLD [SQTSH] Order #: [id number] FUTURE T3 FREE BLD [SQFREET3] Order #: [id number] FUTURE T4 FREE/FREE THYROX [SQFT4] Order #: [id number] FUTURE COMP METABOLIC PANEL [SQCMP] Order #: [id number] FUTURE CBC + DIFF [SQCBCDIF] Order #: [id number] FUTURE LIPID PANEL BASIC [SQLIPB] Order #: [id number] FUTURE Prescriptions as of 08/28/2017 Sig: DIAZEPAM 5 MG TABLET Take 1 tablet by mouth twice * LISINOPRIL 10 MG TABLET TAKE 1 TABLET EVERY DAY WHITE PETROLATUM-MINERAL OIL * [facility] GLYCOL-GLYCERIN 0.6* Use 2 Drops in both eyes as n* LEVOTHYROXINE 50 MCG TABLET Take 1 tablet by mouth once d* ESOMEPRAZOLE MAGNESIUM 20 MG * Take 1 capsule by mouth once * GABAPENTIN 100 MG CAPSULE Take 3 capsules at bedtime (D* Patient taking differently: 300 mg daily at bedtime. Take* HYDROCODONE 5 MG-ACETAMINOPHE* Take 1 by mouth at bedtime DOCUSATE SODIUM 100 MG CAPSULE Take 1 capsule by mouth twice* Patient taking differently: Take 100 mg by mouth as neede* COMPOUNDED PRESCRIPTION [place] Antiseptic Powder (c* DICLOFENAC 1 % TOPICAL GEL Apply 2 g to affected area fo* Patient not taking: Reported on 07/29/2017 DICLOFENAC 20 MG/GRAM/ACTUATI* Prescribed by Dr. Paz CLOBETASOL 0.05 % LOTION Apply to affected area. COMPOUNDED PRESCRIPTION SEMI ELECTRIC HOSPITAL BED AN* POVIDONE IODINE 2% IN 0.9% NA* Irrigate 2 Drops as instructe* COMPOUNDED PRESCRIPTION KNEE HIGH COMPRESSION STOCKIN* ACETAMINOPHEN 325 MG TABLET Take 650 mg by mouth every 6 * * MULTIVITAMIN TABLET Take 1 tablet by mouth twice * Problem List As Of Date 08/28/2017 Noted Resolved Essential hypertension [I10] Acute, but ill-defined, cerebrovascular disease*INVALID FOR*12/28/2016 Priority: B More... Mixed hyperlipidemia [E78.2] Coronary atherosclerosis [I25.10] 1) Laparotomy 2) Joann gastroplasty 3) Wedge t* 06/30/2011 Priority: A More... IRRITABLE COLON [K58.9] DYSMETABOLIC SYNDROME X [E88.81] Hypothyroidism [E03.9] Priority: D More... DVT (deep venous thrombosis) (HCC) [I82.409] INVALID FOR*03/04/2017 Priority: G More... Anemia [D64.9] INVALID FOR* 1) Laparotomy 2) Joann gastroplasty 3) Wedge * Priority: A More... Obesity [E66.9] Discharge planning [Z71.89] INVALID FOR*09/03/2011 Priority: G More... Other acute postoperative pain [G89.18] INVALID FOR*09/03/2011 Priority: B More... 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 OAB (overactive bladder) [N32.81] INVALID FOR* Reversed peristalsis [R19.2] INVALID FOR* More... Stress incontinence [N39.3] INVALID FOR* Urge incontinence [N39.41] INVALID FOR* Frequency of urination [R35.0] INVALID FOR* Nocturia [R35.1] INVALID FOR* Kidney stone [N20.0] INVALID FOR* Anxiety [F41.9] INVALID FOR* Marital conflict [Z63.0] INVALID FOR* Cephalalgia [R51] INVALID FOR* IFG (impaired fasting glucose) [R73.01] INVALID FOR* Lipoma of right upper extremity [D17.21] INVALID FOR* Vertigo [R42] INVALID FOR* Falls, subsequent encounter [W19.XXXD] INVALID FOR* Acute pain of left shoulder [M25.512] INVALID FOR* Other instructions from your clinician: Follow up with Dr. Scott 3 months. Make appointment with physical therapy Encounter Status:Closed by JUAN BAEZ on 08/28/17 OT FUNCTIONAL CAPACITY Observed: 08/08/2017 Status: F Source: [facility] 9:50 AM [facility] REPOSITORY [facility] [address] [place] [address]. [address] [place], [place] [address] Fax REHABILITATION SERVICES INITIAL EVALUATION MR#: [id number] Acct: [id number] Name: KESHIA ROJAS Rep #: [id number] : 1950 67 From: Gina CEDILLO/Jorge, CHT Referring DrShabnam: Crystal Paz MD Status: REG RCR Insurance: MEDICARE PART A B Eval Date: OT Functional Capacity Eval - Task Lift Floor (Occasional 1-33% of Day): 25# Floor (Frequent 34-66% of Day): 12# Floor (Constant 67-100% of Day): 5# Floor PDL: Light-Medium Knee (Occasional 1-33% of Day): 25# Knee (Frequent 34-66% of Day): 12# Knee (Constant 67-100% of Day): 5# Knee PDL: Light-Medium Waist (Occasional 1-33% of Day): 20# Waist (Frequent 34-66% of Day): 10# Waist (Constant 67-100% of Day): NA Waist PDL: Light Shoulder (Occasional 1-33% of Day): 20# Shoulder (Frequent 34-66% of Day): 10# Shoulder (Constant 67-100% of Day): NA Shoulder PDL: Light Overhead (Occasional 1-33% of Day): 10# Overhead (Frequent 34-66% of Day): NA Overhead (Constant 67-100% of Day): NA Overhead PDL: Sedentary - Work Activity/Posture Bending: Frequent Ability (34-66% of day) Squatting: Occasional Ability (1-33% of day) Comments: with use of back brace as needed Kneeling: No Ablility (0% of day) Reaching out: Frequent Ability (34-66% of day) Reaching up: Frequent Ability (34-66% of day) Sitting: Frequent Ability (34-66% of day) Walking: Occasional Ability (1-33% of day) Comments: with use of walking stick when needed Standing: Frequent Ability (34-66% of day) - Reference Duration Sedentary Sedentary Light Light Light Medium Medium Medium Heavy V yuni Heavy Heavy - Patient Information Height: 1.63 m Weight:: 78.471 kg Hand Dominance: right - Medical History Medical History Including Restrictions: Pt states in 2002 pt tore her left maniscus pt states she can not remember if she had any follow up therapy or sx following. Pt states in 2011 she had a hurnia repair with complications. PT states in 2014 she injured her back while lifting a clay washer out of her husbands truck with him. She states she crushed her vertebra L4-L5-S1 and had back sx to repair the vertebra- pt states she did go through Physical therapy following her sx. Pt states she does do exercies on a daily basis. Pt has been seen by pain mtg. and have injections for back pain, pt states she has had it done the last two year. pt is unable to recall how many shots done. pt states she feels she was placed on a lift restriction of no more than 25# by OBGYN due to her bladder issues. pt is unsure if her spine surgon put her on any lift restrictions - Diagnoses Diagnoses: Sarmiento's esophagus. Overactive Bladder. Hypertension. Mixed hyperlipidemia. Cornary atherosclerosis. IBS. Dysmetabolic syndrome. Dysphagia. Reversed peristalsis. stress incontinence. Urge incontinence. Frequency of urination. Anxiety. Cephalalgia. Vertigo - Symptoms Symptoms: Muscle cramps. Back pain. Left knee weakness- pt states she does have a brace but does not fit under her pants. - Pain Pain: Pt reports no current pain. - Work History Work History: Pt states she works at [employer], pt states she has worked there 4-6 weeks. 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 Pt states she works 5-7 hours 5 days a week. 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 pt is unsure what her lift requirement is. Pt states she was working at [employer] but pt states she was not getting the hours she needed so she left to find a job to get more hours. - Behavioral Behavioral: pt was cooroperative - ADLS ADLS: Pt states she lives with her in a one story with a basement. Pt states she has two entry steps with two hand rails. PT states she is ind. with all bathing, dressing and meal prep. pt states she does do cleaning and lundry. pt states she does use grab bars in her shower and they have a raised toilet. - Physical Examination ROM: pt demo all upper and lower body range of motion within normal limits Strength: pt demo all upper and lower body range of motion within normal limits- pt demo strength UB at 5/5 and hip flexors at 4/5 and all other lower body strength testing at 5/5. pt demo functional strength Right Checker In Strength Average: 52.33 Right Checker In Strength Percentile: 30% Left Checker In Strength Average: 58.33 Left Checker In Strength Percentile: 32% Right Lateral Pinch Average: 9.33 Right Lateral Pinch Percentile: 25% Left Lateral Pinch Average: 10.33 Left Lateral Pinch Percentile: 50% Right Tripod Pinch Average: 9.00 Right Tripod Pinch Percentile: 25% Left Tripod Pinch Average: 8.66 Left Tripod Pinch Percentile: <50% Sensation: pt demo 2.83 bilateral hands sensation is with in normal limits Fine Motor: 9-hole peg test-. right 24.11 seconds =25%. left 24.02 seconds =50%. pt demo good fine motor skills Balance: no loss of balance was noted during testing - Non Material Handling Activities Bending: PT demo the ability to bend forward three times and then ten times and ten time rapidly. pt can bend forward on a frequent basis. Squatting: Pt demo the ability to squat three times and ten times and ten times rapidly. pt placed back brace on during the portion. pt reported pain in LE during this task -10/24 pt states pain stopped when she finished squatting. pt can squat on an occasional basis with use of back brace when needed. Kneeling: pt demo no ability to kneel. Reaching out/up: pt demo the ability to reach up/out three times and ten times and ten times rapidly. pt completed while standing. pt removed her back brace during this portion. pt can reach up/put on a frequent basis. Walking: Pt amb with antalgic gait for 15 min. pt did start of using a walking stick but after a few min. she just carried it. Pt reported left knee pain during and following ambulation 07/24. PT can ambulate on a occasional basis with use of walking stick as needed. Standing: pt demo ability to stand for 8 min with no expressed or apparent discomfort. pt stands for most of her work day and states she is feeling fine. Per functional activities questionnnaire pt can stand/walk for 8 hours a day. pt can stand on a frequent basis. Sitting: PT demo the ability to sit for 50 min with no expressed discomfort. per functional activities questionnaire pt reports she can drive or ride in a car for 4 hours before need to get out and stretch. pt can sit on a frequent basis. Climbing Stairs: pt demo the ability to ascend and descend ten steps with a reciprical step pattern and use of bilateral hand rails. - Dynamic Occasional Lifting Capacity Floor Lift: pt demo the ability to lift 25# maximally from this level with us of her back brace. Knee Lift: pt demo the ability to lift 25# maximally from this level with us of her back brace. Waist Lift: pt demo the ability to lift 20# maximally from this level with us of her back brace. Shoulder Lift: pt demo the ability to lift 20# maximally from this level with us of her back brace. Overhead Lift: pt demo the ability to lift 10# maximally from this level with us of her back brace. Carrying: Pt demo the ability to carry 10# for 80 feet with use of her back brace. <Electronically signed by Gina CEDILLO/Jorge, CHT> 08/08/17 0950 CC: Crystal Paz MD; Paulo Scott MD MK Signed For Medicare only, by signing this I certify the plan of care. Physicians Signature Date URINE DRUG SCREEN Collected: 07/30/2017 Status: F Source: [place] [facility] 2:03 PM [facility] REPOSITORY Order Comment: List of Drugs Taken or Suspected? UNK TYPE CODE TESTS RESULT OUT OF RANGE REFERENCE UNITS LAB L505.0075 TO BE Normal CONFIRMED Result Comment: CONFIRMATORY TESTING FOR ALL POSITIVE URINE DRUG SCREEN RESULTS WILL ONLY BE SENT OUT UPON PHYSICIAN ORDER. VISTA Urine Drug Screen methods provide only preliminary analytical test results. A more specific alternate chemical method must be used in order to obtain a confirmed analytical result. Gas chromatography/mass spectrometery (GC/MS) is the preferred confirmatory method. Clinical consideration and professional judgement should be applied to any drug of abuse test result, particularly when preliminary positive results are used. URINE TCA TESTING MUST BE ORDERED SEPARATELY. USE TEST MNEMONIC: [facility] LAB L505.5005 VISTA UDS PH 6 Normal LAB L505.5015 <1000 ng/mL AMPHETAMINES Normal NEGATIVE LAB L505.5025 < 200 ng/mL BARBITIURATES Normal NEGATIVE LAB L505.5035 < 200 High ng/mL BENZODIAZIPINE POSITIVE LAB L505.5045 < 300 ng/mL COCAINE Normal NEGATIVE LAB L505.5055 < 500 ng/mL ECSTACY Normal NEGATIVE LAB L505.5065 < 300 ng/mL METHADONE Normal NEGATIVE LAB L505.5075 < 300 ng/mL OPIATES Normal NEGATIVE LAB L505.5085 < 25 ng/mL PCP Normal NEGATIVE LAB L505.5095 < 50 ng/mL THC Normal NEGATIVE Performed By: #### L505.5000 #### [facility] [address], [address] MISCELLANEOUS LAB Collected: 07/30/2017 Status: F Source: [place] PROCEDURE 2:03 PM [facility] REPOSITORY Order Comment: Test(s) Ordered: [id number] URINE DRUG SCREEN RUN LOWEST TEST TYPE CODE TESTS RESULT OUT OF RANGE REFERENCE UNITS LAB L801.1541 Normal [facility] TEST Result Comment: [id number] 6+OXYCODONE-BUND (ng/mL) DRUG RESULT SCREEN CUTOFF ____ Amphetamines,Urine Negative ng/mL 1000 Amphetamine test includes Amphetamine and Methamphetamine. Barbiturates Negative ng/mL 200 Benzodiazepines POSITIVE ng/mL 100 Please Note; Confirmation performed by Mass Spectrometry Nordiazepam POSITIVE Nordiazepam Confirm 114 ng/mL 100 Oxazepam POSITIVE Oxazepam Confirm 249 ng/mL 100 Flurazepam Negative Lorazepam Negative Alprazolam Negative Clonazepam Negative Temazepam POSITIVE Temazepam Confirm 148 ng/mL 100 Triazolam Negative Midazolam Negative Cannabinoid Negative ng/mL 20 Cocaine (Metab) Negative ng/mL 300 Opiates Negative ng/mL 300 Opiates test includes Codeine, Morphine, Hydromorphone, Hydrocodone. Oxycodone/Oxymorphone,Urine Negative ng/mL 300 Test includes Oxydodone and Oxymorphone. TESTING PERFORMED AT [facility]. ORIGINAL REPORT ON FILE IN LAB CONTAINS ADDITIONAL TEST SITE INFORMATION. Performed By: #### L801.1541 #### [facility] [address] [place], [address] PROGRESS Observed: 07/29/2017 Status: COMPLETED Source: [place] 10:41 AM [facility] REPOSITORY HNO ID: [id number] Author: [place] Service: (none) Author Type: Physician Type: Progress Notes Filed: 07/29/2017 12:32 PM Note Text: Follow up podiatric office visit for: Chief Complaint: This 67 year old who presents for follow up:cramping and burning of b/l feet. Patient states the cramping and burning alternates from left to right foot. She was seen 3 weeks ago at which time pvr was ordered and she has those to review. She had votaren gel prescribed but this has yet to be approved and prior authorization is pending. She recently received a shot in her lower back but she is unsure if the injection helped with her foot. She is here to discuss cramping and burning in legs and feet. PAIN EVALUATION No data found. 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 (Dr. Charlton) - Cataracts, both eyes - Coronary atherosclerosis of unspecified type of vessel, douglas or graft minimal plaque on cath 08/06/2006 - DVT (deep venous thrombosis) (HCC) 2010 Right leg OCTOBER 2009 NOT TREATED - Dysmetabolic syndrome X - Esophageal reflux - Fibromyalgia better with Lyrica - Floppy eyelid syndrome - Hiatal hernia Large when seen on EGD 10/2010 at [facility] (Dr. Chavarria) - Irritable bowel syndrome - Obesity - Osteoarthritis - Other and unspecified hyperlipidemia - Punctate keratitis of left eye - Reversed peristalsis 06/23/2013 retrograde persistalsis of esphagus causing episode of emesis - Spondylosis - TMJ arthritis right - Unspecified essential hypertension - Unspecified hypothyroidism Current Outpatient Prescriptions: lisinopril (ZESTRIL, PRINIVIL) 10 mg tablet TAKE 1 TABLET EVERY DAY diazePAM (VALIUM) 5 mg tablet Take 1 tablet by mouth twice daily as needed (vertigo or anxiety) for up to 90 days. (Patient taking differently: Take 5 mg by mouth daily at bedtime. ) diclofenac sodium (PENNSAID) 20 mg/gram /actuation(2 %) sopm Prescribed by Dr. Paz white petrolatum 94% - mineral oil 3% 94-3 % oint [facility] propylene glycol-glycerin (SOOTHE) 0.6-0.6 % Use 2 Drops in both eyes as needed. levothyroxine (SYNTHROID) 50 mcg tablet Take 1 tablet by mouth once daily. esomeprazole (NEXIUM 24HR) 20 mg capsule Take 1 capsule by mouth once daily. Needs Namebrand over the counter, not generic. gabapentin (NEURONTIN) 100 mg capsule Take 3 capsules at bedtime (Dr. Paz) (Patient taking differently: 300 mg daily at bedtime. Take 3 capsules at bedtime (Dr. 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 (Patient taking differently: Take 100 mg by mouth as needed for Constipation. ) Compression Knee Highs KNEE HIGH COMPRESSION STOCKINGS 20- 30 MM. DX: EDEMA 782.3, venous insuffiency 459.81(Futuro therapeutic open heel and open toe if available) acetaminophen (TYLENOL) 325 mg tablet Take 650 mg by mouth every 6 hours as needed. COMPOUNDED PRESCRIPTION Shackelford Antiseptic Powder (carbolic acid; zinc oxide) as needed per Dr. Arleen Burdick diclofenac sodium (VOLTAREN) 1 % topical gel Apply 2 g to affected area four times daily. (Patient not taking: Reported on 07/29/2017 ) Clobetasol Propionate 0.05 % lotn Apply to affected area. sodium chloride 0.9 % soln 1,000 mL with povidone-iodine 10 % soln 20 mL Irrigate 2 Drops as instructed once daily. multivitamin ORAL tablet Take 1 tablet by mouth twice daily. No current facility-administered medications for this visit. ALLERGIES Allergen Reactions - Ekg Patches [Other] Hives skin gets red and raw needs hypoalergetic patches also any patch used for testing - Aggrenox [Aspirin-D* Other: See Comments Headache - Bactrim [Sulfametho* dizzy, redness, face flushed - Betadine [Povidone-* Rash - Cetacaine [Butamben* Other: See Comments excessive mucous production - Cigarettes [Other] Shortness of Breath Hard to breath/has a sensitivity not an allergy - Codeine Intolerance - Cortisone Shortness of Breath injection was given and swelled and had trouble breathing - Depomedrol [Other] Swelling FACE SWELLED AFTER CORTISONE SHOT IN KNEE - Detrol [Tolterodine* Intolerance HEAD ACHE ,DRY MOUTH - Ditropan [Oxybutyni* Intolerance DIZZY,SUN SENSITIVE - Latex Rash - Meclizine Swelling URINARY RETENTION,FACE FELT FUNNY - Metoprolol GI Upset headache.itching.hives. - Myrbetriq [Mirabegr* Other: See Comments elevated BP - Paper Tape [Other] Rash - Prevacid [Lansopraz* GI Upset GAS,BURPING HEADACHE - Prilosec [Omeprazol* Diarrhea - Tizanidine Other: See Comments increased pain - Zelnorm [Tegaserod * Hives PAST SURGICAL HISTORY Procedure Laterality Date - COLONOS W/REM POLYP SNARE 2001,2006,2009,2010 Dr. Chavarria - [facility], DIAG AND/OR THERAPEUTIC 07/24/2005 Dilation AND curettage - EXC TUMOR SOFT TISS FOREARM AND/WRIST SUBQ 3+CM Right 11/04/15 Exc. right forearm lipoma - HYSTEROSCOPY, DIAGNOSTIC (SEPARATE 07/24/2005 Hysteroscopy - INTRO. 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 and Short esophagus - REMOVE PART, LUMBAR VERTEBRAE 01/2014 - REMOVE TONSILS/ADENOIDS,<12 Y/O 1954 T/A (under age 12 years) - RETRIEV INTRAVASC FOREGN BODY --15 FILTER REMOVAL - RT HEART CATH 2007 x 2 Physical Exam: Constitutional: Pt is a well developed 67 year old female who is alert, oriented, cooperative and in no apparent distress. OBJECTIVE: Vascular: DP and PT pulses are palpable. cft is delayed. Skin temp is warm to cool b/l. Dermatological: Left hallux lateral nail border appears brittle. Webspaces clean and dry 1-4 b/l. Skin appears well hydrated and supple. good color, texture, turgor. No open lesions present. No callosities present. Musculoskeletal/Orthopaedic: Patient has pain to palpation of b/l forefoot rom of b/l foot is full without pain or crepitus ASSESSMENT: (I73.9) PAD (peripheral artery disease) ([facility]) (primary encounter diagnosis) (L60.0) Ingrowing toenail of left foot PLAN: 1. History and physical examination completed today. 2. Discussed pain of b/l feet. Patient largest issue is burning and cramping of b/l feet. Informed patient this could be from back or possible pad. Reviewed pvr. pvr suggests small vessel disease so I suspect if she has burning of feet and legs that the pain may be coming from back. Discussed voltaren gel. Awaiting prior auth. I did discuss other options for topical pain cream. The largest issue is her sensitivity to multiple medications. May consider sample if one can be obtained 3. Discussed ingrowing toenail. She would consider removal of left hallux lateral border ingrowing nail. Reviewed pvr. She has small vessel diseae. She has palpable dp and pt. In absence of any major pain or infection, I would hold on procedure and send patient to vascular surgery for consultation prior to any planned removal VICKY Stephen Observed: 07/29/2017 Status: COMPLETED Source: [place] 10:25 AM [facility] REPOSITORY Office Visit (PODIWS) KESHIA ROJAS ([id number]) 1950 F Date Time Provider Department 07/29/17 10:25 AM EDDIEMARA HALEYLESLIE TAFOYA During your visit today, we recorded the following information about you: Omero Park, DPM 07/29/2017 12:32 PM Signed Follow up podiatric office visit for: Chief Complaint: This 67 year old who presents for follow up:cramping and burning of b/l feet. Patient states the cramping and burning alternates from left to right foot. She was seen 3 weeks ago at which time pvr was ordered and she has those to review. She had votaren gel prescribed but this has yet to be approved and prior authorization is pending. She recently received a shot in her lower back but she is unsure if the injection helped with her foot. She is here to discuss cramping and burning in legs and feet. PAIN EVALUATION No data found. 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 (Dr. Charlton) - Cataracts, both eyes - Coronary atherosclerosis of unspecified type of vessel, douglas or graft minimal plaque on cath 08/06/2006 - DVT (deep venous thrombosis) ([facility]) 2010 Right leg OCTOBER 2009 NOT TREATED - Dysmetabolic syndrome X - Esophageal reflux - Fibromyalgia better with Lyrica - Floppy eyelid syndrome - Hiatal hernia Large when seen on EGD 10/2010 at [facility] (Dr. Chavarria) - Irritable bowel syndrome - Obesity - Osteoarthritis - Other and unspecified hyperlipidemia - Punctate keratitis of left eye - Reversed peristalsis 06/23/2013 retrograde persistalsis of esphagus causing episode of emesis - Spondylosis - TMJ arthritis right - Unspecified essential hypertension - Unspecified hypothyroidism Current Outpatient Prescriptions: lisinopril (ZESTRIL, PRINIVIL) 10 mg tablet TAKE 1 TABLET EVERY DAY diazePAM (VALIUM) 5 mg tablet Take 1 tablet by mouth twice daily as needed (vertigo or anxiety) for up to 90 days. (Patient taking differently: Take 5 mg by mouth daily at bedtime. ) diclofenac sodium (PENNSAID) 20 mg/gram /actuation(2 %) sopm Prescribed by Dr. Paz white petrolatum 94% - mineral oil 3% 94-3 % oint [facility] propylene glycol-glycerin (SOOTHE) 0.6-0.6 % Use 2 Drops in both eyes as needed. levothyroxine (SYNTHROID) 50 mcg tablet Take 1 tablet by mouth once daily. esomeprazole (NEXIUM 24HR) 20 mg capsule Take 1 capsule by mouth once daily. Needs Namebrand over the counter, not generic. gabapentin (NEURONTIN) 100 mg capsule Take 3 capsules at bedtime (Dr. Paz) (Patient taking differently: 300 mg daily at bedtime. Take 3 capsules at bedtime (Dr. 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 (Patient taking differently: Take 100 mg by mouth as needed for Constipation. ) Compression Knee Highs KNEE HIGH COMPRESSION STOCKINGS 20- 30 MM. DX: EDEMA 782.3, venous insuffiency 459.81(Futuro therapeutic open heel and open toe if available) acetaminophen (TYLENOL) 325 mg tablet Take 650 mg by mouth every 6 hours as needed. COMPOUNDED PRESCRIPTION Shackelford Antiseptic Powder (carbolic acid; zinc oxide) as needed per Dr. Arleen Burdick diclofenac sodium (VOLTAREN) 1 % topical gel Apply 2 g to affected area four times daily. (Patient not taking: Reported on 07/29/2017 ) Clobetasol Propionate 0.05 % lotn Apply to affected area. sodium chloride 0.9 % soln 1,000 mL with povidone-iodine 10 % soln 20 mL Irrigate 2 Drops as instructed once daily. multivitamin ORAL tablet Take 1 tablet by mouth twice daily. No current facility-administered medications for this visit. ALLERGIES Allergen Reactions - Ekg Patches [Other] Hives skin gets red and raw needs hypoalergetic patches also any patch used for testing - Aggrenox [Aspirin-D* Other: See Comments Headache - Bactrim [Sulfametho* dizzy, redness, face flushed - Betadine [Povidone-* Rash - Cetacaine [Butamben* Other: See Comments excessive mucous production - Cigarettes [Other] Shortness of Breath Hard to breath/has a sensitivity not an allergy - Codeine Intolerance - Cortisone Shortness of Breath injection was given and swelled and had trouble breathing - Depomedrol [Other] Swelling FACE SWELLED AFTER CORTISONE SHOT IN KNEE - Detrol [Tolterodine* Intolerance HEAD ACHE ,DRY MOUTH - Ditropan [Oxybutyni* Intolerance DIZZY,SUN SENSITIVE - Latex Rash - Meclizine Swelling URINARY RETENTION,FACE FELT FUNNY - Metoprolol GI Upset headache.itching.hives. - Myrbetriq [Mirabegr* Other: See Comments elevated BP - Paper Tape [Other] Rash - Prevacid [Lansopraz* GI Upset GAS,BURPING HEADACHE - Prilosec [Omeprazol* Diarrhea - Tizanidine Other: See Comments increased pain - Zelnorm [Tegaserod * Hives PAST SURGICAL HISTORY Procedure Laterality Date - COLONOS W/REM POLYP SNARE 2001,2006,2009,2010 Dr. Chavarria - [facility], DIAG AND/OR THERAPEUTIC 07/24/2005 Dilation AND curettage - EXC TUMOR SOFT TISS FOREARM AND/WRIST SUBQ 3+CM Right 11/04/15 Exc. right forearm lipoma - HYSTEROSCOPY, DIAGNOSTIC (SEPARATE 07/24/2005 Hysteroscopy - INTRO. 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 and Short esophagus - REMOVE PART, LUMBAR VERTEBRAE 01/2014 - REMOVE TONSILS/ADENOIDS,<12 Y/O 1954 T/A (under age 12 years) - RETRIEV INTRAVASC FOREGN BODY 04-12-14 FILTER REMOVAL - RT HEART CATH 2007 x 2 Physical Exam: Constitutional: Pt is a well developed 67 year old female who is alert, oriented, cooperative and in no apparent distress. OBJECTIVE: Vascular: DP and PT pulses are palpable. cft is delayed. Skin temp is warm to cool b/l. Dermatological: Left hallux lateral nail border appears brittle. Webspaces clean and dry 1-4 b/l. Skin appears well hydrated and supple. good color, texture, turgor. No open lesions present. No callosities present. Musculoskeletal/Orthopaedic: Patient has pain to palpation of b/l forefoot rom of b/l foot is full without pain or crepitus ASSESSMENT: (I73.9) PAD (peripheral artery disease) ([facility]) (primary encounter diagnosis) (L60.0) Ingrowing toenail of left foot PLAN: 1. History and physical examination completed today. 2. Discussed pain of b/l feet. Patient largest issue is burning and cramping of b/l feet. Informed patient this could be from back or possible pad. Reviewed pvr. pvr suggests small vessel disease so I suspect if she has burning of feet and legs that the pain may be coming from back. Discussed voltaren gel. Awaiting prior auth. I did discuss other options for topical pain cream. The largest issue is her sensitivity to multiple medications. May consider sample if one can be obtained 3. Discussed ingrowing toenail. She would consider removal of left hallux lateral border ingrowing nail. Reviewed pvr. She has small vessel diseae. She has palpable dp and pt. In absence of any major pain or infection, I would hold on procedure and send patient to vascular surgery for consultation prior to any planned removal Omero Park DPM Referring Provider: SELF [200] Allergies As of Date: 07/29/2017 Noted Allergy Reaction ekg patches [Other] 02/20/2006 4 - Hives Comments: skin gets red and raw needs hypoalergetic patches also any patch used for testing AGGRENOX (ASPIRIN-DIPYRIDAMOLE) 05/27/2011 14 - Other: See Comments Comments: Headache BACTRIM (SULFAMETHOXAZOLE-TRIMETH*03/20/2006 Comments: dizzy, redness, face flushed BETADINE (POVIDONE-IODINE) 11/04/2006 2 - Rash CETACAINE ([id number]*09/11/2012 14 - Other: See Comments Comments: excessive mucous production cigarettes [Other] 02/22/2010 12 - Shortness of Breath Comments: Hard to breath/has a sensitivity not an allergy CODEINE 03/07/2006 5 - Intolerance CORTISONE 12 - Shortness of Breath Comments: injection was given and swelled and had trouble breathing DEPOMEDROL [Other] 03/07/2006 7 - Swelling Comments: FACE SWELLED AFTER CORTISONE SHOT IN KNEE DETROL (TOLTERODINE TARTRATE) 03/07/2006 5 - Intolerance Comments: HEAD ACHE ,DRY MOUTH DITROPAN (OXYBUTYNIN CHLORIDE) 03/07/2006 5 - Intolerance Comments: DIZZY,SUN SENSITIVE LATEX 11/03/2009 2 - Rash MECLIZINE 03/07/2006 7 - Swelling Comments: URINARY RETENTION,FACE FELT FUNNY METOPROLOL 04/24/2006 8 - GI Upset Comments: headache.itching.hives. MYRBETRIQ (MIRABEGRON) 12/26/2014 14 - Other: See Comments Comments: elevated BP paper tape [Other] 08/15/2006 2 - Rash PREVACID (LANSOPRAZOLE) 03/07/2006 8 - GI Upset Comments: GAS,BURPING HEADACHE PRILOSEC (OMEPRAZOLE MAGNESIUM) 6 - Diarrhea TIZANIDINE 03/24/2014 14 - Other: See Comments Comments: increased pain ZELNORM (TEGASEROD HYDROGEN RACHELL*03/07/2006 4 - Hives Date Reviewed: 07/29/2017 Reviewed by: Chikis Hardy RN - Fully Assessed Reason for Visit: Recheck [92] Primary Visit Diagnosis:PAD (peripheral artery disease) (HCC) [I73.9] Other Visit Diagnosis:Ingrowing toenail of left foot [L60.0] Order(s):CONSULT TO VASCULAR SURGERY [9042] Order #: [id number]: 1 Prescriptions as of 07/29/2017 Sig: LISINOPRIL 10 MG TABLET TAKE 1 TABLET EVERY DAY DIAZEPAM 5 MG TABLET Take 1 tablet by mouth twice * Patient taking differently: Take 5 mg by mouth daily at b* DICLOFENAC 20 MG/GRAM/ACTUATI* Prescribed by Dr. Jackson WELLS PETROLATUM-MINERAL OIL * [facility] PROPYLENE GLYCOL-GLYCERIN 0.6* Use 2 Drops in both eyes as n* LEVOTHYROXINE 50 MCG TABLET Take 1 tablet by mouth once d* ESOMEPRAZOLE MAGNESIUM 20 MG * Take 1 capsule by mouth once * GABAPENTIN 100 MG CAPSULE Take 3 capsules at bedtime (D* Patient taking differently: 300 mg daily at bedtime. Take* COMPOUNDED PRESCRIPTION SEMI ELECTRIC HOSPITAL BED AN* HYDROCODONE 5 MG-ACETAMINOPHE* Take 1 by mouth at bedtime DOCUSATE SODIUM 100 MG CAPSULE Take 1 capsule by mouth twice* Patient taking differently: Take 100 mg by mouth as neede* COMPOUNDED PRESCRIPTION KNEE HIGH COMPRESSION STOCKIN* ACETAMINOPHEN 325 MG TABLET Take 650 mg by mouth every 6 * COMPOUNDED PRESCRIPTION Shackelford Antiseptic Powder (c* DICLOFENAC 1 % TOPICAL GEL Apply 2 g to affected area fo* Patient not taking: Reported on 07/29/2017 CLOBETASOL 0.05 % LOTION Apply to affected area. POVIDONE IODINE 2% IN 0.9% NA* Irrigate 2 Drops as instructe* * MULTIVITAMIN TABLET Take 1 tablet by mouth twice * Problem List As Of Date 07/29/2017 Noted Resolved Essential hypertension [I10] Acute, but ill-defined, cerebrovascular disease*INVALID FOR*12/28/2016 Priority: B More... Mixed hyperlipidemia [E78.2] Coronary atherosclerosis [I25.10] 1) Laparotomy 2) Joann gastroplasty 3) Wedge t* 06/30/2011 Priority: A More... IRRITABLE COLON [K58.9] DYSMETABOLIC SYNDROME X [E88.81] Hypothyroidism [E03.9] Priority: D More... DVT (deep venous thrombosis) ([facility]) [I82.409] INVALID FOR*03/04/2017 Priority: G More... Anemia [D64.9] INVALID FOR* 1) Laparotomy 2) Joann gastroplasty 3) Wedge * Priority: A More... Obesity [E66.9] Discharge planning [Z71.89] INVALID FOR*09/03/2011 Priority: G More... Other acute postoperative pain [G89.18] INVALID FOR*09/03/2011 Priority: B More... 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 OAB (overactive bladder) [N32.81] INVALID FOR* Reversed peristalsis [R19.2] INVALID FOR* More... Stress incontinence [N39.3] INVALID FOR* Urge incontinence [N39.41] INVALID FOR* Frequency of urination [R35.0] INVALID FOR* Nocturia [R35.1] INVALID FOR* Kidney stone [N20.0] INVALID FOR* Anxiety [F41.9] INVALID FOR* Marital conflict [Z63.0] INVALID FOR* Cephalalgia [R51] INVALID FOR* IFG (impaired fasting glucose) [R73.01] INVALID FOR* Lipoma of right upper extremity [D17.21] INVALID FOR* Vertigo [R42] INVALID FOR* Falls, subsequent encounter [W19.XXXD] INVALID FOR* Acute pain of left shoulder [M25.512] INVALID FOR* Encounter Status:Closed by OMERO PARK DPM on 07/29/17 CNCO Observed: 07/28/2017 Status: COMPLETED Source: [place] 12:00 AM [facility] REPOSITORY Letter Text Keshia Rojas [address] [place] [id number] 07/28/2017 [facility] #: [id number] Dear ShabnamCrystla, Due to a change in the provider's schedule it has been necessary to reschedule your Appointment. Your original appointment was scheduled for 08/25/2017 at 3:20 PM with Paulo Scott M.D. Your new appointment is now scheduled on 08/28/2017 at 3:20 PM with Juan Casas . If this new appointment is not convenient for you, please contact our office at [phone]. Thank you for choosing the [facility] as your Healthcare Provider . Sincerely, Internal Medicine Appointment Office PROGRESS Observed: 07/03/2017 Status: COMPLETED Source: [place] 12:11 PM [facility] REPOSITORY HNO ID: [id number] Author: Melissa Covington Service: (none) Author Type: Nurse Practitioner Type: Progress Notes Filed: 07/03/2017 12:21 PM Note Text: Subjective The history is provided by the patient. No graphic editor was used. HPI Keshia Rojas is a 67 year old female who presents today for CC of right ear pain. Patient was unclear as to when this started. Symptoms are worsened by nothing She has uses Pandora, valium, and neurotin Risk factors none known PMH cerumen impaction, seasonal allergies BP 138/82 Pulse 80 Temp 37 ?C (98.6 ?F) (Tympanic) Resp 18 Wt 78.6 kg (173 lb 3.2 oz) BMI 29.73 kg/m2 ALLERGIES Allergen Reactions - Ekg Patches [Other] Hives skin gets red and raw needs hypoalergetic patches also any patch used for testing - Aggrenox [Aspirin-D* Other: See Comments Headache - Bactrim [Sulfametho* dizzy, redness, face flushed - Betadine [Povidone-* Rash - Cetacaine [Butamben* Other: See Comments excessive mucous production - Codeine Intolerance - Cortisone Shortness of Breath injection was given and swelled and had trouble breathing - Depomedrol [Other] Swelling FACE SWELLED AFTER CORTISONE SHOT IN KNEE - Detrol [Tolterodine* Intolerance HEAD ACHE ,DRY MOUTH - Ditropan [Oxybutyni* Intolerance DIZZY,SUN SENSITIVE - Latex Rash - Meclizine Swelling URINARY RETENTION,FACE FELT FUNNY - Metoprolol GI Upset headache.itching.hives. - Myrbetriq [Mirabegr* Other: See Comments elevated BP - Prevacid [Lansopraz* GI Upset GAS,BURPING HEADACHE - Prilosec [Omeprazol* Diarrhea - Tizanidine Other: See Comments increased pain - Zelnorm [Tegaserod * Hives - Cigarettes [Other] Shortness of Breath Hard to breath/has a sensitivity not an allergy - Paper Tape [Other] Rash ACTIVE PROBLEM LIST Essential Hypertension Mixed Hyperlipidemia Coronary Atherosclerosis Irritable Bowel Syndrome Dysmetabolic Syndrome X Hypothyroidism Anemia 1) Laparotomy 2) Joann gastroplasty 3) Wedge the gastric fundus 4) Robbie fundoplication Obesity Dysphagia, Unspecified(437.20) 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 at 7o's - Cancer Paternal Grandfather MELONOMA - Colon Cancer Maternal Aunt - Hypertension Sister - Cancer Other LYMPHOBLASTOMA GREAT GRANDMOTHER PATERNAL - Heart / Stroke [Other] [OTHER] Maternal Grandmother AND CANCER OF STOMACH - Celiac disease [Other] [OTHER] Mother Cancer at 87 y/o - Breast Cancer Maternal Aunt diagnosed in her 90's - Colon Cancer Maternal Grandmother Social History Marital status: Spouse name: charmaine Years of education: 13.5 Number of children: 3 Occupational History Occupation Employer Comment retired [employer]* Social History Main Topics Smoking status: Never Smoker Smokeless status: Never Used Alcohol use: Yes 6.0 oz/week Comment: occasionally rare Drug use: No Sexual activity: Not Currently Partners with: Male Review of Systems Constitutional: Negative. Negative for chills, fever and malaise/fatigue. HENT: Positive for ear pain (right). Negative for congestion, sinus pain and sore throat. Respiratory: Negative for cough, sputum production, shortness of breath and wheezing. Cardiovascular: Negative for chest pain. Musculoskeletal: Negative for myalgias. Skin: Negative for rash. Neurological: Negative for headaches. Objective Physical Exam Constitutional: She is well-developed, well-nourished, and in no distress. HENT: Head: Normocephalic and atraumatic. Right Ear: External ear and ear canal normal. Tympanic membrane is bulging. Tympanic membrane is not injected, not erythematous and not retracted. A middle ear effusion (serous) is present. Left Ear: Tympanic membrane, external ear and ear canal normal. Tympanic membrane is not injected, not erythematous, not retracted and not bulging. No middle ear effusion. Nose: Nose normal. Right sinus exhibits no maxillary sinus tenderness and no frontal sinus tenderness. Left sinus exhibits no maxillary sinus tenderness and no frontal sinus tenderness. Mouth/Throat: Uvula is midline, oropharynx is clear and moist and mucous membranes are normal. No oropharyngeal exudate, posterior oropharyngeal edema, posterior oropharyngeal erythema or tonsillar abscesses. Eyes: Conjunctivae and EOM are normal. Pupils are equal, round, and reactive to light. Neck: Normal range of motion. Cardiovascular: Normal rate, regular rhythm and normal heart sounds. Pulmonary/Chest: Effort normal and breath sounds normal. No respiratory distress. She has no decreased breath sounds. She has no wheezes. She has no rhonchi. She has no rales. Lymphadenopathy: Head (right side): No submental, no submandibular, no tonsillar, no preauricular and no posterior auricular adenopathy present. Head (left side): No submental, no submandibular, no tonsillar, no preauricular and no posterior auricular adenopathy present. She has no cervical adenopathy. Right cervical: No posterior cervical adenopathy present. Left cervical: No posterior cervical adenopathy present. Right: No supraclavicular adenopathy present. Left: No supraclavicular adenopathy present. Skin: Skin is warm and dry. Psychiatric: Affect normal. Nursing note and vitals reviewed. ASSESSMENT/PLAN: 1. Right acute serous otitis media, recurrence not specified - ICD9: 381.01, ICD10: H65.01 - Will begin treatment with Zyrtec 10 mg By mouth daily at bedtime - Flonase or Nasonex 1 spray each nostril two times a day. - Supportive care with plenty of fluids, rest, and tylenol or ibuprofen - Follow up with ENT if no improvement GO TO THE ER IF: 1. You have a severe headache or pain around the ear. 2. You notice swelling around the ear. 3. You have a seizure (convulsion), twitching of the facial muscles, or passes out. 4. You are dizzy, have a stiff neck, or cannot walk or talk normally. * Seek medical care immediately, call 911, go to ER if you have chest pain, difficulty breathing, shortness of breath, inability to swallow. Diagnosis and treatment plan were discussed and questions were answered to the patient's satisfaction. Pt acknowledged understanding of concepts and follow up plan. Specific signs and symptoms that would indicate the need for higher level of care were discussed in detail warranting prompt ER evaluation. Melissa Covington APRN.DARYL HUSTON Observed: 07/03/2017 Status: COMPLETED Source: [place] 11:45 AM [facility] REPOSITORY Office Visit ([facility]) KESHIA ROJAS ([id number]) 1950 F Date Time Provider Department 07/03/17 11:45 AM MELISSA COVINGTON (FLOW TRADER) [facility] During your visit today, we recorded the following information about you: Temperature Pulse Respiration Blood pressure 98.6 degrees 80/minute 18/minute 138/82 Weight 78.6 kg Melissa Covington APRN.CNP 07/03/2017 12:21 PM Signed Subjective The history is provided by the patient. No graphic editor was used. HPI Keshia Rojas is a 67 year old female who presents today for CC of right ear pain. Patient was unclear as to when this started. Symptoms are worsened by nothing She has uses Pandora, valium, and neurotin Risk factors none known PMH cerumen impaction, seasonal allergies BP 138/82 Pulse 80 Temp 37 ?C (98.6 ?F) (Tympanic) Resp 18 Wt 78.6 kg (173 lb 3.2 oz) BMI 29.73 kg/m2 ALLERGIES Allergen Reactions - Ekg Patches [Other] Hives skin gets red and raw needs hypoalergetic patches also any patch used for testing - Aggrenox [Aspirin-D* Other: See Comments Headache - Bactrim [Sulfametho* dizzy, redness, face flushed - Betadine [Povidone-* Rash - Cetacaine [Butamben* Other: See Comments excessive mucous production - Codeine Intolerance - Cortisone Shortness of Breath injection was given and swelled and had trouble breathing - Depomedrol [Other] Swelling FACE SWELLED AFTER CORTISONE SHOT IN KNEE - Detrol [Tolterodine* Intolerance HEAD ACHE ,DRY MOUTH - Ditropan [Oxybutyni* Intolerance DIZZY,SUN SENSITIVE - Latex Rash - Meclizine Swelling URINARY RETENTION,FACE FELT FUNNY - Metoprolol GI Upset headache.itching.hives. - Myrbetriq [Mirabegr* Other: See Comments elevated BP - Prevacid [Lansopraz* GI Upset GAS,BURPING HEADACHE - Prilosec [Omeprazol* Diarrhea - Tizanidine Other: See Comments increased pain - Zelnorm [Tegaserod * Hives - Cigarettes [Other] Shortness of Breath Hard to breath/has a sensitivity not an allergy - Paper Tape [Other] Rash ACTIVE PROBLEM LIST Essential Hypertension Mixed Hyperlipidemia Coronary Atherosclerosis Irritable Bowel Syndrome Dysmetabolic Syndrome X Hypothyroidism Anemia 1) Laparotomy 2) Joann gastroplasty 3) Wedge the gastric fundus 4) Robbie fundoplication Obesity Dysphagia, Unspecified(787.20) 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 at 7o's - Cancer Paternal Grandfather MELONOMA - Colon Cancer Maternal Aunt - Hypertension Sister - Cancer Other LYMPHOBLASTOMA GREAT GRANDMOTHER PATERNAL - Heart / Stroke [Other] [OTHER] Maternal Grandmother AND CANCER OF STOMACH - Celiac disease [Other] [OTHER] Mother Cancer at 87 y/o - Breast Cancer Maternal Aunt diagnosed in her 90's - Colon Cancer Maternal Grandmother Social History Marital status: Spouse name: charmaine Years of education: 13.5 Number of children: 3 Occupational History Occupation Employer Comment retired [employer];* Social History Main Topics Smoking status: Never Smoker Smokeless status: Never Used Alcohol use: Yes 6.0 oz/week Comment: occasionally rare Drug use: No Sexual activity: Not Currently Partners with: Male Review of Systems Constitutional: Negative. Negative for chills, fever and malaise/fatigue. HENT: Positive for ear pain (right). Negative for congestion, sinus pain and sore throat. Respiratory: Negative for cough, sputum production, shortness of breath and wheezing. Cardiovascular: Negative for chest pain. Musculoskeletal: Negative for myalgias. Skin: Negative for rash. Neurological: Negative for headaches. Objective Physical Exam Constitutional: She is well-developed, well-nourished, and in no distress. HENT: Head: Normocephalic and atraumatic. Right Ear: External ear and ear canal normal. Tympanic membrane is bulging. Tympanic membrane is not injected, not erythematous and not retracted. A middle ear effusion (serous) is present. Left Ear: Tympanic membrane, external ear and ear canal normal. Tympanic membrane is not injected, not erythematous, not retracted and not bulging. No middle ear effusion. Nose: Nose normal. Right sinus exhibits no maxillary sinus tenderness and no frontal sinus tenderness. Left sinus exhibits no maxillary sinus tenderness and no frontal sinus tenderness. Mouth/Throat: Uvula is midline, oropharynx is clear and moist and mucous membranes are normal. No oropharyngeal exudate, posterior oropharyngeal edema, posterior oropharyngeal erythema or tonsillar abscesses. Eyes: Conjunctivae and EOM are normal. Pupils are equal, round, and reactive to light. Neck: Normal range of motion. Cardiovascular: Normal rate, regular rhythm and normal heart sounds. Pulmonary/Chest: Effort normal and breath sounds normal. No respiratory distress. She has no decreased breath sounds. She has no wheezes. She has no rhonchi. She has no rales. Lymphadenopathy: Head (right side): No submental, no submandibular, no tonsillar, no preauricular and no posterior auricular adenopathy present. Head (left side): No submental, no submandibular, no tonsillar, no preauricular and no posterior auricular adenopathy present. She has no cervical adenopathy. Right cervical: No posterior cervical adenopathy present. Left cervical: No posterior cervical adenopathy present. Right: No supraclavicular adenopathy present. Left: No supraclavicular adenopathy present. Skin: Skin is warm and dry. Psychiatric: Affect normal. Nursing note and vitals reviewed. ASSESSMENT/PLAN: 1. Right acute serous otitis media, recurrence not specified - ICD9: 381.01, ICD10: H65.01 - Will begin treatment with Zyrtec 10 mg By mouth daily at bedtime - Flonase or Nasonex 1 spray each nostril two times a day. - Supportive care with plenty of fluids, rest, and tylenol or ibuprofen - Follow up with ENT if no improvement GO TO THE ER IF: 1. You have a severe headache or pain around the ear. 2. You notice swelling around the ear. 3. You have a seizure (convulsion), twitching of the facial muscles, or passes out. 4. You are dizzy, have a stiff neck, or cannot walk or talk normally. * Seek medical care immediately, call 911, go to ER if you have chest pain, difficulty breathing, shortness of breath, inability to swallow. Diagnosis and treatment plan were discussed and questions were answered to the patient's satisfaction. Pt acknowledged understanding of concepts and follow up plan. Specific signs and symptoms that would indicate the need for higher level of care were discussed in detail warranting prompt ER evaluation. Melissa Covington APRN.DARYL Covington APRN.CNP 07/03/2017 12:16 PM Signed ASSESSMENT/PLAN: 1. Right acute serous otitis media, recurrence not specified - ICD9: 381.01, ICD10: H65.01 - Will begin treatment with Zyrtec 10 mg By mouth daily at bedtime - Flonase or Nasonex 1 spray each nostril two times a day. - Supportive care with plenty of fluids, rest, and tylenol or ibuprofen - Follow up with ENT if no improvement GO TO THE ER IF: 1. You have a severe headache or pain around the ear. 2. You notice swelling around the ear. 3. You have a seizure (convulsion), twitching of the facial muscles, or passes out. 4. You are dizzy, have a stiff neck, or cannot walk or talk normally. * Seek medical care immediately, call 911, go to ER if you have chest pain, difficulty breathing, shortness of breath, inability to swallow. Referring Provider: SELF [[id number]] Allergies As of Date: 07/03/2017 Noted Allergy Reaction ekg patches [Other] 02/20/2006 4 - Hives Comments: skin gets red and raw needs hypoalergetic patches also any patch used for testing AGGRENOX (ASPIRIN-DIPYRIDAMOLE) 05/27/2011 14 - Other: See Comments Comments: Headache BACTRIM (SULFAMETHOXAZOLE-TRIMETH*03/20/2006 Comments: dizzy, redness, face flushed BETADINE (POVIDONE-IODINE) 11/04/2006 2 - Rash CETACAINE ([id number]*09/11/2012 14 - Other: See Comments Comments: excessive mucous production CODEINE 03/07/2006 5 - Intolerance CORTISONE 12 - Shortness of Breath Comments: injection was given and swelled and had trouble breathing DEPOMEDROL [Other] 03/07/2006 7 - Swelling Comments: FACE SWELLED AFTER CORTISONE SHOT IN KNEE DETROL (TOLTERODINE TARTRATE) 03/07/2006 5 - Intolerance Comments: HEAD ACHE ,DRY MOUTH DITROPAN (OXYBUTYNIN CHLORIDE) 03/07/2006 5 - Intolerance Comments: DIZZY,SUN SENSITIVE LATEX 11/03/2009 2 - Rash MECLIZINE 03/07/2006 7 - Swelling Comments: URINARY RETENTION,FACE FELT FUNNY METOPROLOL 04/24/2006 8 - GI Upset Comments: headache.itching.hives. MYRBETRIQ (MIRABEGRON) 12/26/2014 14 - Other: See Comments Comments: elevated BP PREVACID (LANSOPRAZOLE) 03/07/2006 8 - GI Upset Comments: GAS,BURPING HEADACHE PRILOSEC (OMEPRAZOLE MAGNESIUM) 6 - Diarrhea TIZANIDINE 03/24/2014 14 - Other: See Comments Comments: increased pain ZELNORM (TEGASEROD HYDROGEN RACHELL*03/07/2006 4 - Hives cigarettes [Other] 02/22/2010 12 - Shortness of Breath Comments: Hard to breath/has a sensitivity not an allergy paper tape [Other] 08/15/2006 2 - Rash Date Reviewed: 07/03/2017 Reviewed by: Melissa ([facility]) Adria - Fully Assessed Reason for Visit: right ear pain [Other] Cmt: x 1 week Primary Visit Diagnosis:Right acute serous otitis media, recurrence not specified [H65.01] Prescriptions as of 07/03/2017 Sig: DICLOFENAC 1 % TOPICAL GEL Apply 2 g to affected area fo* DIAZEPAM 5 MG TABLET Take 1 tablet by mouth twice * DICLOFENAC 20 MG/GRAM/ACTUATI* Prescribed by Dr. Jackson WELLS PETROLATUM-MINERAL OIL * Dr. Lynne [facility] PROPYLENE GLYCOL-GLYCERIN 0.6* Use 2 Drops in both eyes as n* LEVOTHYROXINE 50 MCG TABLET Take 1 tablet by mouth once d* ESOMEPRAZOLE MAGNESIUM 20 MG * Take 1 capsule by mouth once * LISINOPRIL 10 MG TABLET Take 1 tablet by mouth once d* CLOBETASOL 0.05 % LOTION Apply to affected area. GABAPENTIN 100 MG CAPSULE Take 3 capsules at bedtime (D* COMPOUNDED PRESCRIPTION [facility] AN* HYDROCODONE 5 MG-ACETAMINOPHE* Take 1 by mouth at bedtime POVIDONE IODINE 2% IN 0.9% NA* Irrigate 2 Drops as instructe* DOCUSATE SODIUM 100 MG CAPSULE Take 1 capsule by mouth twice* COMPOUNDED PRESCRIPTION KNEE HIGH COMPRESSION STOCKIN* ACETAMINOPHEN 325 MG TABLET Take 650 mg by mouth every 6 * COMPOUNDED PRESCRIPTION Shackelford Antiseptic Powder (c* * MULTIVITAMIN TABLET Take 1 tablet by mouth twice * Problem List As Of Date 07/03/2017 Noted Resolved Essential hypertension [I10] Acute, but ill-defined, cerebrovascular disease*INVALID FOR*12/28/2016 Priority: B More... Mixed hyperlipidemia [E78.2] Coronary atherosclerosis [I25.10] 1) Laparotomy 2) Joann gastroplasty 3) Wedge t* 06/30/2011 Priority: A More... IRRITABLE COLON [K58.9] DYSMETABOLIC SYNDROME X [E88.81] Hypothyroidism [E03.9] Priority: D More... DVT (deep venous thrombosis) ([facility]) [I82.409] INVALID FOR*03/04/2017 Priority: G More... Anemia [D64.9] INVALID FOR* 1) Laparotomy 2) Joann gastroplasty 3) Wedge * Priority: A More... Obesity [E66.9] Discharge planning [Z71.89] INVALID FOR*09/03/2011 Priority: G More... Other acute postoperative pain [G89.18] INVALID FOR*09/03/2011 Priority: B More... 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 OAB (overactive bladder) [N32.81] INVALID FOR* Reversed peristalsis [R19.2] INVALID FOR* More... Stress incontinence [N39.3] INVALID FOR* Urge incontinence [N39.41] INVALID FOR* Frequency of urination [R35.0] INVALID FOR* Nocturia [R35.1] INVALID FOR* Kidney stone [N20.0] INVALID FOR* Anxiety [F41.9] INVALID FOR* Marital conflict [Z63.0] INVALID FOR* Cephalalgia [R51] INVALID FOR* IFG (impaired fasting glucose) [R73.01] INVALID FOR* Lipoma of right upper extremity [D17.21] INVALID FOR* Vertigo [R42] INVALID FOR* Falls, subsequent encounter [W19.XXXD] INVALID FOR* Acute pain of left shoulder [M25.512] INVALID FOR* Other instructions from your clinician: ASSESSMENT/PLAN: 1. Right acute serous otitis media, recurrence not specified - ICD9: 381.01, ICD10: H65.01 - Will begin treatment with Zyrtec 10 mg By mouth daily at bedtime - Flonase or Nasonex 1 spray each nostril two times a day. - Supportive care with plenty of fluids, rest, and tylenol or ibuprofen - Follow up with ENT if no improvement GO TO THE ER IF: 1. You have a severe headache or pain around the ear. 2. You notice swelling around the ear. 3. You have a seizure (convulsion), twitching of the facial muscles, or passes out. 4. You are dizzy, have a stiff neck, or cannot walk or talk normally. * Seek medical care immediately, call 911, go to ER if you have chest pain, difficulty breathing, shortness of breath, inability to swallow. Medications Discontinued During This Encounter erythromycin ophthalmic ointment 11/29/2016 07/03/2017 Class: Med Update Route: BOTH EYES Sig: Use 1 application in both eyes daily at bedtime. Every other night (Drs. Irwin and Guera) Disc: Course of therapy completed Encounter Status:Closed by MELISSA COVINGTON CNP on 07/03/17 PROGRESS Observed: 07/01/2017 Status: COMPLETED Source: [place] 10:06 AM [facility] REPOSITORY O ID: [id number] Author: [place] Service: (none) Author Type: Physician Type: Progress Notes Filed: 07/01/2017 10:19 AM Note Text: Initial Podiatric Office Visit: Chief Complaint: This 67 year old female who presents with chief complaint:cramping of b/l feet HPI Patient presents to clinic for complaint of cramping of b/l feet. Patient states that she has noticed b/l feet develop cramps for the Past 6 months. She states the cramping is getting much worse. She does have hypothyroid and her hands and feet get very cold. She states the cramping does lead to pain and the pain is 10/10. She states the cramping also makes it difficult to place her shoes on. She is on gabapentin, norco and valium and that does help her sleep at night. During the day, she is unable to take this regimen so she is in pain. She does wear back brace for thoracic issues. She does have scaling of left foot. She has been seen by dermatology and she is using lotion and powder. PAIN EVALUATION 07/01/2017 Pain Score: 10 Pain Location: Other: See Comment bilateral feet Description: Cramping Duration Amount of Time: 6 Duration Units: Months Frequency: Intermittent Intervention: Reposition;Massage;Other: See comment elevation, rolling a tennis ball Hemoglobin A1C (%) Date Value 05/22/2017 5.9 11/05/2016 6.1 06/19/2016 6.3 03/12/2016 6.2 01/02/2016 6.2 PCP: Paulo Scott MD PAST MEDICAL HISTORY Diagnosis Date - Acute, but ill-defined, cerebrovascular disease 09/28/2005 AND 2008 TIA x2 - 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 11/02/12 EGD at [facility] (Dr. Charlton) - Cataracts, both eyes - Coronary atherosclerosis of unspecified type of vessel, douglas or graft minimal plaque on cath 08/06/2006 - DVT (deep venous thrombosis) ([facility]) 2010 Right leg OCTOBER 2009 NOT TREATED - Dysmetabolic syndrome X - Esophageal reflux - Fibromyalgia better with Lyrica - Floppy eyelid syndrome - Hiatal hernia Large when seen on EGD 10/2010 at [facility] (Dr. Chavarria) - Irritable bowel syndrome - Obesity - Osteoarthritis - Other and unspecified hyperlipidemia - Punctate keratitis of left eye - Reversed peristalsis 06/23/2013 retrograde persistalsis of esphagus causing episode of emesis - Spondylosis - TMJ arthritis right - Unspecified essential hypertension - Unspecified hypothyroidism Current Outpatient Prescriptions: diazePAM (VALIUM) 5 mg tablet Take 1 tablet by mouth twice daily as needed (vertigo or anxiety) for up to 90 days. diclofenac sodium (PENNSAID) 20 mg/gram /actuation(2 %) sopm Prescribed by Dr. Jackson wells petrolatum 94% - mineral oil 3% 94-3 % oint Dr. [facility] propylene glycol-glycerin (SOOTHE) 0.6-0.6 % Use 2 Drops in both eyes as needed. levothyroxine (SYNTHROID) 50 mcg tablet Take 1 tablet by mouth once daily. esomeprazole (NEXIUM 24HR) 20 mg capsule Take 1 capsule by mouth once daily. Needs Namebrand over the counter, not generic. erythromycin ophthalmic ointment Use 1 application in both eyes daily at bedtime. Every other night (Drs. Irwin and Guera) lisinopril (ZESTRIL, PRINIVIL) 10 mg tablet Take 1 tablet by mouth once daily. Clobetasol Propionate 0.05 % lotn Apply to affected area. gabapentin (NEURONTIN) 100 mg capsule Take 3 capsules at bedtime (Dr. Paz) COMPOUNDED PRESCRIPTION [facility] BED AND MATTRESS, with side rails Diagnoses: (K22.70) 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; (K21.9) Gastroesophageal reflux disease, esophagitis presence not specified; (I87.303) Stasis edema of both lower extremities; (R11.10) Regurgitation of food HYDROcodone-acetaminophen (NORCO) 5-325 mg per tablet Take 1 by mouth at bedtime sodium chloride 0.9 % soln 1,000 mL with povidone-iodine 10 % soln 20 mL Irrigate 2 Drops as instructed once daily. docusate sodium (COLACE) 100 mg capsule Take 1 capsule by mouth twice daily as needed for Constipation. Compression Knee Highs KNEE HIGH COMPRESSION STOCKINGS 20- 30 MM. DX: EDEMA 782.3, venous insuffiency 459.81(Futuro therapeutic open heel and open toe if available) COMPOUNDED PRESCRIPTION Shackelford Antiseptic Powder (carbolic acid; zinc oxide) as needed per Dr. Arleen Burdick multivitamin ORAL tablet Take 1 tablet by mouth twice daily. acetaminophen (TYLENOL) 325 mg tablet Take 650 mg by mouth every 6 hours as needed. No current facility-administered medications for this visit. ALLERGIES Allergen Reactions - Ekg Patches [Other] Hives skin gets red and raw needs hypoalergetic patches also any patch used for testing - Aggrenox [Aspirin-D* Other: See Comments Headache - Bactrim [Sulfametho* dizzy, redness, face flushed - Betadine [Povidone-* Rash - Cetacaine [Butamben* Other: See Comments excessive mucous production - Codeine Intolerance - Cortisone Shortness of Breath injection was given and swelled and had trouble breathing - Depomedrol [Other] Swelling FACE SWELLED AFTER CORTISONE SHOT IN KNEE - Detrol [Tolterodine* Intolerance HEAD ACHE ,DRY MOUTH - Ditropan [Oxybutyni* Intolerance DIZZY,SUN SENSITIVE - Latex Rash - Meclizine Swelling URINARY RETENTION,FACE FELT FUNNY - Metoprolol GI Upset headache.itching.hives. - Myrbetriq [Mirabegr* Other: See Comments elevated BP - Prevacid [Lansopraz* GI Upset GAS,BURPING HEADACHE - Prilosec [Omeprazol* Diarrhea - Tizanidine Other: See Comments increased pain - Zelnorm [Tegaserod * Hives - Cigarettes [Other] Shortness of Breath Hard to breath/has a sensitivity not an allergy - Paper Tape [Other] Rash PAST SURGICAL HISTORY Procedure Laterality Date - COLONOS W/REM POLYP SNARE 2001,2006,2009,2010 Dr. Chavarria - [facility], DIAG AND/OR THERAPEUTIC 07/24/2005 Dilation AND curettage - EXC TUMOR SOFT TISS FOREARM AND/WRIST SUBQ 3+CM Right 11/04/15 Exc. right forearm lipoma - HYSTEROSCOPY, DIAGNOSTIC (SEPARATE 07/24/2005 Hysteroscopy - INTRO. 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 at 7o's - Cancer Paternal Grandfather MELONOMA - Colon Cancer Maternal Aunt - Hypertension Sister - Cancer Other LYMPHOBLASTOMA GREAT GRANDMOTHER PATERNAL - Heart / Stroke [Other] [OTHER] Maternal Grandmother AND CANCER OF STOMACH - Celiac disease [Other] [OTHER] Mother Cancer at 87 y/o - Breast Cancer Maternal Aunt diagnosed in her 90's - Colon Cancer Maternal Grandmother Social History Marital status: Spouse name: charmaine Years of education: 13.5 Number of children: 3 Occupational History Occupation Employer Comment retired [employer]* Social History Main Topics Smoking status: Never Smoker Smokeless status: Never Used Alcohol use: Yes 6.0 oz/week Comment: occasionally rare Drug use: No Sexual activity: Not Currently Partners with: Male REVIEW OF SYSTEMS GENERAL: Negative for Malaise, significant weight loss, fever RESPIRATORY: Negative for cough, wheezing and shortness of breath CARDIOVASCULAR: Negative for chest pain, leg swelling and palpitations GI: Negative for abdominal discomfort, blood in stools or black stools and change in bowel habits : Negative for dysuria, frequency and incontinence MUSCULOSKELETAL: Negative for joint pain or swelling, back pain, and muscle pain. SKIN: Negative for lesions, rash, and itching. HEMATOLOGY/LYMPHOLOGY Negative for prolonged bleeding, bruising easily, and swollen nodes. ENDOCRINE: Negative for cold or heat intolerance, polyuria, polydipsia and goiter. NEURO: negative Physical Exam: Constitutional: Pt is a well developed 67 year old female who is alert, oriented and cooperative Eyes: Following during examination. No redness or drainage. Respiratory: RR normal and nonlabored. Even breathing. No evidence of distress or shortness of breath. Psychology: Patient is engaged during conversation. Normal affect and mood. Does not appear depressed or anxious during encounter. Vascular: Dorsalis pedis and posterior tibial pulses faintly palpable as b/l Capillary Fill time < 5 seconds to digits 1-5 b/l Skin temperature warm to warm proximal to distal b/l Hair growth present to digits Neurological: intact light touch/epicritic sensation Vibratory sensation intact to hallux b/l intact protective sensation no significant neurological deficits Dermatological: Nails 1-5 b/l appear normal. Webspaces clean and dry 1-4 b/l. Skin appears dry and scaly b/l. good color, texture, turgor. No open lesions present. No callosities present. Musculoskeletal/Orthopaedic: Patient has no pain to palpation of b/l feet Foot type is neutral structurally AJ ROM is full with knee extended and flexed 1st MPJ is full when loaded and no pain or crepitus are noted with ROM. MTJ, STJ are full and free of pain and crepitus. +5/5 muscle strength dorsiflexion, plantarflexion, inversion, eversion b/l Radiographs: 3 views b/l foot ordered July 01, 2017: I have personally reviewed and interpreted these XR myself: No acute fracture present ASSESSMENT: (M25.579) Pain in joint involving ankle and foot, unspecified laterality (primary encounter diagnosis) (L85.3) Xerosis cutis (I3.9) PAD (peripheral artery disease) ([facility]) PLAN: 1. History and physical examination performed. 2. XR reviewed with patient and interpreted today 3. Discussed pain of b/l feet. Discussed cramping of b/l feet. Will check baseline arterial study. Will prescribe voltaren gel. 4. Continue with gabapentin 5. F/u in 3-4 weeks. She will contact us should the insurance not cover voltaren gel. [place] DPM PROGRESS Observed: 07/01/2017 Status: COMPLETED Source: [place] 9:28 AM [facility] REPOSITORY HNO ID: [id number] Author: Smiley (Rt) Rodolfo Haddad Service: (none) Author Type: Research Physician Type: Progress Notes Filed: 07/01/2017 9:28 AM Note Text: Radiology Service Progress Note PATIENT NAME: Keshia Rojas DATE OF SERVICE: July 01, 2017 TIME: 9:28 AM PATIENT IDENTITY VERIFICATION COMPLETED USING TWO (2) METHODS: Patient confirmed name verbally and Date of . PATIENT GENDER DATA: Female. status: : No status: NO. PATIENT RELEVANT IMPLANT DATA REVIEWED: Not Applicable RADIOLOGY DEPARTMENT: General X-ray: Exam(s) Completed: Lower Extremity X-Ray(s): Feet, Bilateral and Wt. Bearing: PERIPHERAL IV DATA: Not applicable SIGNED BY: RT Reg July 01, 2017 9:28 AM XR FOOT 3V AP/LAT/OBL Observed: 07/01/2017 Status: F Source: [facility] 9:21 AM [facility] REPOSITORY * * *Final Report* * * DATE OF EXAM: Jul 01 2017 9:21AM [id number] - XR FOOT 3V AP/LAT/OBL RT / PROCEDURE REASON: Pain, unspecified * * * * Physician Interpretation * * * * Bilateral feet HISTORY: 67 years old Clinical information: Pain, unspecified bilateral entire foot pain after standing and walking, for months. no injury TECHNIQUE: Images: XR FOOT 3V AP/LAT/OBL LT, XR FOOT 3V AP/LAT/OBL RT Comparison: None. RESULT: Findings: There is moderate narrowing of all the interphalangeal joints bilaterally. Bone density well-preserved. Right side: No fractures or dislocations are seen. Left side: There is either a well-corticated bone density adjacent to or an exostosis projecting from the proximal lateral aspect of the proximal phalanx of the great toe. No acute fractures or dislocations are seen. Bilateral IMPRESSION: Degenerative changes.. Bone density adjacent to or projecting from the proximal phalanx of the LEFT great toe as discussed Healthcare Educator: TAMIKO Transcribe Date/Time: Jul 01 2017 10:01A Dictated by : KHADIJAH SHEEHAN DO This examination was interpreted and the report reviewed and electronically signed by: KHADIJAH SHEEHAN DO on Jul 01 2017 10:10AM EST [id number] XR FOOT 3V AP/LAT/OBL Observed: 07/01/2017 Status: F Source: [facility] 9:21 AM [facility] [place] REPOSITORY * * *Final Report* * * DATE OF EXAM: Jul 01 2017 9:21AM [id number] - XR FOOT 3V AP/LAT/OBL LT / PROCEDURE REASON: Pain, unspecified * * * * Physician Interpretation * * * * Bilateral feet HISTORY: 67 years old Clinical information: Pain, unspecified bilateral entire foot pain after standing and walking, for months. no injury TECHNIQUE: Images: XR FOOT 3V AP/LAT/OBL LT, XR FOOT 3V AP/LAT/OBL RT Comparison: None. RESULT: Findings: There is moderate narrowing of all the interphalangeal joints bilaterally. Bone density well-preserved. Right side: No fractures or dislocations are seen. Left side: There is either a well-corticated bone density adjacent to or an exostosis projecting from the proximal lateral aspect of the proximal phalanx of the great toe. No acute fractures or dislocations are seen. Bilateral IMPRESSION: Degenerative changes.. Bone density adjacent to or projecting from the proximal phalanx of the LEFT great toe as discussed Healthcare Educator: TAMIKO Transcribe Date/Time: Jul 01 2017 10:01A Dictated by : KHADIJAH SHEEHAN DO This examination was interpreted and the report reviewed and electronically signed by: KHADIJAH SHEEHAN DO on Jul 01 2017 10:10AM EST [id number] CNOV Observed: 07/01/2017 Status: COMPLETED Source: [place] 9:10 AM [facility] REPOSITORY Office Visit (PODIWS) KESHIA ROJAS ([id number]) 1950 F Date Time Provider Department 07/01/17 9:10 AM [facility] PODIWS During your visit today, we recorded the following information about you: [place] DPM 07/01/2017 10:19 AM Signed Initial Podiatric Office Visit: Chief Complaint: This 67 year old female who presents with chief complaint:cramping of b/l feet HPI Patient presents to clinic for complaint of cramping of b/l feet. Patient states that she has noticed b/l feet develop cramps for the Past 6 months. She states the cramping is getting much worse. She does have hypothyroid and her hands and feet get very cold. She states the cramping does lead to pain and the pain is 10/10. She states the cramping also makes it difficult to place her shoes on. She is on gabapentin, norco and valium and that does help her sleep at night. During the day, she is unable to take this regimen so she is in pain. She does wear back brace for thoracic issues. She does have scaling of left foot. She has been seen by dermatology and she is using lotion and powder. 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 (Dr. Charlton) - Cataracts, both eyes - Coronary atherosclerosis of unspecified type of vessel, douglas or graft minimal plaque on cath 08/06/2006 - DVT (deep venous thrombosis) ([facility]) 2009 Right leg OCTOBER 2009 NOT TREATED - Dysmetabolic syndrome X - Esophageal reflux - Fibromyalgia better with Lyrica - Floppy eyelid syndrome - Hiatal hernia Large when seen on EGD 10/2010 at [facility] (Dr. Chavarria) - Irritable bowel syndrome - Obesity - Osteoarthritis - Other and unspecified hyperlipidemia - Punctate keratitis of left eye - Reversed peristalsis 06/23/2013 retrograde persistalsis of esphagus causing episode of emesis - Spondylosis - TMJ arthritis right - Unspecified essential hypertension - Unspecified hypothyroidism Current Outpatient Prescriptions: diazePAM (VALIUM) 5 mg tablet Take 1 tablet by mouth twice daily as needed (vertigo or anxiety) for up to 90 days. diclofenac sodium (PENNSAID) 20 mg/gram /actuation(2 %) sopm Prescribed by Dr. Jackson wells petrolatum 94% - mineral oil 3% 94-3 % oint [facility]. [facility] propylene glycol-glycerin (SOOTHE) 0.6-0.6 % Use 2 Drops in both eyes as needed. levothyroxine (SYNTHROID) 50 mcg tablet Take 1 tablet by mouth once daily. esomeprazole (NEXIUM 24HR) 20 mg capsule Take 1 capsule by mouth once daily. Needs Namebrand over the counter, not generic. erythromycin ophthalmic ointment Use 1 application in both eyes daily at bedtime. Every other night (Drs. Irwin and Gurea) lisinopril (ZESTRIL, PRINIVIL) 10 mg tablet Take 1 tablet by mouth once daily. Clobetasol Propionate 0.05 % lotn Apply to affected area. gabapentin (NEURONTIN) 100 mg capsule Take 3 capsules at bedtime (Dr. 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 docusate sodium (COLACE) 100 mg capsule Take 1 capsule by mouth twice daily as needed for Constipation. Compression Knee Highs KNEE HIGH COMPRESSION STOCKINGS 20- 30 MM. DX: EDEMA 782.3, venous insuffiency 459.81(Futuro therapeutic open heel and open toe if available) COMPOUNDED PRESCRIPTION Shackelford Antiseptic Powder (carbolic acid; zinc oxide) as needed per Dr. Arleen Burdick multivitamin ORAL tablet Take 1 tablet by mouth twice daily. acetaminophen (TYLENOL) 325 mg tablet Take 650 mg by mouth every 6 hours as needed. No current facility-administered medications for this visit. ALLERGIES Allergen Reactions - Ekg Patches [Other] Hives skin gets red and raw needs hypoalergetic patches also any patch used for testing - Aggrenox [Aspirin-D* Other: See Comments Headache - Bactrim [Sulfametho* dizzy, redness, face flushed - Betadine [Povidone-* Rash - Cetacaine [Butamben* Other: See Comments excessive mucous production - Codeine Intolerance - Cortisone Shortness of Breath injection was given and swelled and had trouble breathing - Depomedrol [Other] Swelling FACE SWELLED AFTER CORTISONE SHOT IN KNEE - Detrol [Tolterodine* Intolerance HEAD ACHE ,DRY MOUTH - Ditropan [Oxybutyni* Intolerance DIZZY,SUN SENSITIVE - Latex Rash - Meclizine Swelling URINARY RETENTION,FACE FELT FUNNY - Metoprolol GI Upset headache.itching.hives. - Myrbetriq [Mirabegr* Other: See Comments elevated BP - Prevacid [Lansopraz* GI Upset GAS,BURPING HEADACHE - Prilosec [Omeprazol* Diarrhea - Tizanidine Other: See Comments increased pain - Zelnorm [Tegaserod * Hives - Cigarettes [Other] Shortness of Breath Hard to breath/has a sensitivity not an allergy - Paper Tape [Other] Rash PAST SURGICAL HISTORY Procedure Laterality Date - COLONOS W/REM POLYP SNARE 2001,2006,2009,2010 Dr. Chavarria - DANDamp;C, DIAG AND/OR THERAPEUTIC 07/24/2005 Dilation ANDamp; curettage - EXC TUMOR SOFT TISS FOREARM AND/WRIST SUBQ 3+CM Right 11/04/15 Exc. right forearm lipoma - HYSTEROSCOPY, DIAGNOSTIC (SEPARATE 07/24/2005 Hysteroscopy - INTRO. 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 and Short esophagus - REMOVE PART, LUMBAR VERTEBRAE 01/2014 - REMOVE TONSILS/ADENOIDS,ANDlt;12 Y/O 1954 T/A (under age 12 years) - RETRIEV INTRAVASC FOREGN BODY 04-12-14 FILTER REMOVAL - RT HEART CATH 2006 x 2 FAMILY HISTORY Problem Relation Age of Onset - Cancer Father PROSTATE ?KIDNEYBLADDER,? at 7o's - Cancer Paternal Grandfather MELONOMA - Colon Cancer Maternal Aunt - Hypertension Sister - Cancer Other LYMPHOBLASTOMA GREAT GRANDMOTHER PATERNAL - Heart / Stroke [Other] [OTHER] Maternal Grandmother AND CANCER OF STOMACH - Celiac disease [Other] [OTHER] Mother Cancer at 87 y/o - Breast Cancer Maternal Aunt diagnosed in her 90's - Colon Cancer Maternal Grandmother Social History Marital status: Spouse name: charmaine Years of education: 13.5 Number of children: 3 Occupational History Occupation Employer Comment retired [employer];* Social History Main Topics Smoking status: Never Smoker Smokeless status: Never Used Alcohol use: Yes 6.0 oz/week Comment: occasionally rare Drug use: No Sexual activity: Not Currently Partners with: Male REVIEW OF SYSTEMS GENERAL: Negative for Malaise, significant weight loss, fever RESPIRATORY: Negative for cough, wheezing and shortness of breath CARDIOVASCULAR: Negative for chest pain, leg swelling and palpitations GI: Negative for abdominal discomfort, blood in stools or black stools and change in bowel habits : Negative for dysuria, frequency and incontinence MUSCULOSKELETAL: Negative for joint pain or swelling, back pain, and muscle pain. SKIN: Negative for lesions, rash, and itching. HEMATOLOGY/LYMPHOLOGY Negative for prolonged bleeding, bruising easily, and swollen nodes. ENDOCRINE: Negative for cold or heat intolerance, polyuria, polydipsia and goiter. NEURO: negative Physical Exam: Constitutional: Pt is a well developed 67 year old female who is alert, oriented and cooperative Eyes: Following during examination. No redness or drainage. Respiratory: RR normal and nonlabored. Even breathing. No evidence of distress or shortness of breath. Psychology: Patient is engaged during conversation. Normal affect and mood. Does not appear depressed or anxious during encounter. Vascular: Dorsalis pedis and posterior tibial pulses faintly palpable as b/l Capillary Fill time ANDlt; 5 seconds to digits 1-5 b/l Skin temperature warm to warm proximal to distal b/l Hair growth present to digits Neurological: intact light touch/epicritic sensation Vibratory sensation intact to hallux b/l intact protective sensation no significant neurological deficits Dermatological: Nails 1-5 b/l appear normal. Webspaces clean and dry 1-4 b/l. Skin appears dry and scaly b/l. good color, texture, turgor. No open lesions present. No callosities present. Musculoskeletal/Orthopaedic: Patient has no pain to palpation of b/l feet Foot type is neutral structurally AJ ROM is full with knee extended and flexed 1st MPJ is full when loaded and no pain or crepitus are noted with ROM. MTJ, STJ are full and free of pain and crepitus. +5/5 muscle strength dorsiflexion, plantarflexion, inversion, eversion b/l Radiographs: 3 views b/l foot ordered July 01, 2017: I have personally reviewed and interpreted these XR myself: No acute fracture present ASSESSMENT: (M25.579) Pain in joint involving ankle and foot, unspecified laterality (primary encounter diagnosis) (L85.3) Xerosis cutis (I3.9) PAD (peripheral artery disease) ([facility]) PLAN: 1. History and physical examination performed. 2. XR reviewed with patient and interpreted today 3. Discussed pain of b/l feet. Discussed cramping of b/l feet. Will check baseline arterial study. Will prescribe voltaren gel. 4. Continue with gabapentin 5. F/u in 3-4 weeks. She will contact us should the insurance not cover voltaren gel. VICKY Stephen RN 07/01/2017 10:18 AM Signed Schedule PVR Referring Provider: SELF [200] Allergies As of Date: 07/01/2017 Noted Allergy Reaction ekg patches [Other] 02/20/2006 4 - Hives Comments: skin gets red and raw needs hypoalergetic patches also any patch used for testing AGGRENOX (ASPIRIN-DIPYRIDAMOLE) 05/27/2011 14 - Other: See Comments Comments: Headache BACTRIM (SULFAMETHOXAZOLE-TRIMETH*03/20/2006 Comments: dizzy, redness, face flushed BETADINE (POVIDONE-IODINE) 11/04/2006 2 - Rash CETACAINE (QCTJRUVF-[id number]-BL*09/11/2012 14 - Other: See Comments Comments: excessive mucous production CODEINE 03/07/2006 5 - Intolerance CORTISONE 12 - Shortness of Breath Comments: injection was given and swelled and had trouble breathing DEPOMEDROL [Other] 03/07/2006 7 - Swelling Comments: FACE SWELLED AFTER CORTISONE SHOT IN KNEE DETROL (TOLTERODINE TARTRATE) 03/07/2006 5 - Intolerance Comments: HEAD ACHE ,DRY MOUTH DITROPAN (OXYBUTYNIN CHLORIDE) 03/07/2006 5 - Intolerance Comments: DIZZY,SUN SENSITIVE LATEX 11/03/2009 2 - Rash MECLIZINE 03/07/2006 7 - Swelling Comments: URINARY RETENTION,FACE FELT FUNNY METOPROLOL 04/24/2006 8 - GI Upset Comments: headache.itching.hives. MYRBETRIQ (MIRABEGRON) 12/26/2014 14 - Other: See Comments Comments: elevated BP PREVACID (LANSOPRAZOLE) 03/07/2006 8 - GI Upset Comments: GAS,BURPING HEADACHE PRILOSEC (OMEPRAZOLE MAGNESIUM) 6 - Diarrhea TIZANIDINE 03/24/2014 14 - Other: See Comments Comments: increased pain ZELNORM (TEGASEROD HYDROGEN RACHELL*03/07/2006 4 - Hives cigarettes [Other] 02/22/2010 12 - Shortness of Breath Comments: Hard to breath/has a sensitivity not an allergy paper tape [Other] 08/15/2006 2 - Rash Date Reviewed: 07/01/2017 Reviewed by: Tori Charlton RN - Fully Assessed Reason for Visit: New Patient [172] Cmt: bilateral feet pain Primary Visit Diagnosis:Pain in joint involving ankle and foot, unspecified laterality [M25.579] Other Visit Diagnoses:Xerosis cutis [L85.3] PAD (peripheral artery disease) ([facility]) [I73.9] Order(s):PVR ANK PRESS [facility] [[id number]] Order #: [id number] FUTURE diclofenac sodium (VOLTAREN) 1 % topical gelApply 2 g to affected area four times daily.Disp: 100 gRfl: 5 Prescriptions as of 07/01/2017 Sig: DIAZEPAM 5 MG TABLET Take 1 tablet by mouth twice * DICLOFENAC 20 MG/GRAM/ACTUATI* Prescribed by Dr. Jackson WELLS PETROLATUM-MINERAL OIL * Dr[facility] PROPYLENE GLYCOL-GLYCERIN 0.6* Use 2 Drops in both eyes as n* LEVOTHYROXINE 50 MCG TABLET Take 1 tablet by mouth once d* ESOMEPRAZOLE MAGNESIUM 20 MG * Take 1 capsule by mouth once * ERYTHROMYCIN 5 MG/GRAM (0.5 %* Use 1 application in both eye* LISINOPRIL 10 MG TABLET Take 1 tablet by mouth once d* CLOBETASOL 0.05 % LOTION Apply to affected area. GABAPENTIN 100 MG CAPSULE Take 3 capsules at bedtime (D* COMPOUNDED PRESCRIPTION SEMI ELECTRIC HOSPITAL BED AN* HYDROCODONE 5 MG-ACETAMINOPHE* Take 1 by mouth at bedtime POVIDONE IODINE 2% IN 0.9% NA* Irrigate 2 Drops as instructe* DOCUSATE SODIUM 100 MG CAPSULE Take 1 capsule by mouth twice* COMPOUNDED PRESCRIPTION KNEE HIGH COMPRESSION STOCKIN* COMPOUNDED PRESCRIPTION Shackelford Antiseptic Powder (c* * MULTIVITAMIN TABLET Take 1 tablet by mouth twice * DICLOFENAC 1 % TOPICAL GEL Apply 2 g to affected area fo* ACETAMINOPHEN 325 MG TABLET Take 650 mg by mouth every 6 * Problem List As Of Date 07/01/2017 Noted Resolved Essential hypertension [I10] Acute, but ill-defined, cerebrovascular disease*INVALID FOR*12/28/2016 Priority: B More... Mixed hyperlipidemia [E78.2] Coronary atherosclerosis [I25.10] 1) Laparotomy 2) Joann gastroplasty 3) Wedge t* 06/30/2011 Priority: A More... IRRITABLE COLON [K58.9] DYSMETABOLIC SYNDROME X [E88.81] Hypothyroidism [E03.9] Priority: D More... DVT (deep venous thrombosis) ([facility]) [I82.409] INVALID FOR*03/04/2017 Priority: G More... Anemia [D64.9] INVALID FOR* 1) Laparotomy 2) Joann gastroplasty 3) Wedge * Priority: A More... Obesity [E66.9] Discharge planning [Z71.89] INVALID FOR*09/03/2011 Priority: G More... Other acute postoperative pain [G89.18] INVALID FOR*09/03/2011 Priority: B More... 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 OAB (overactive bladder) [N32.81] INVALID FOR* Reversed peristalsis [R19.2] INVALID FOR* More... Stress incontinence [N39.3] INVALID FOR* Urge incontinence [N39.41] INVALID FOR* Frequency of urination [R35.0] INVALID FOR* Nocturia [R35.1] INVALID FOR* Kidney stone [N20.0] INVALID FOR* Anxiety [F41.9] INVALID FOR* Marital conflict [Z63.0] INVALID FOR* Cephalalgia [R51] INVALID FOR* IFG (impaired fasting glucose) [R73.01] INVALID FOR* Lipoma of right upper extremity [D17.21] INVALID FOR* Vertigo [R42] INVALID FOR* Falls, subsequent encounter [W19.XXXD] INVALID FOR* Acute pain of left shoulder [M25.512] INVALID FOR* Other instructions from your clinician: Schedule PVR Prescriptions ordered this encounter Disp Refills Start End DICLOFENAC 1 % TOPICAL GEL 100 g 5 07/01/2017 Route: TOPICAL Sig: Apply 2 g to affected area four times daily. Disposition: Return in about 4 weeks (around 07/29/2017) for bilateral foot pain. Follow-up and Disposition History Recorded Encounter Status:Closed by OMERO PARK DPM on 07/01/17 PROGRESS Observed: 06/12/2017 Status: COMPLETED Source: [place] 11:11 AM [facility] REPOSITORY O ID: [id number] Author: Olivier (Pt) Nikhil Service: (none) Author Type: Physical Therapist Type: Progress Notes Filed: 06/12/2017 11:17 AM Note Text: Episode Visit Count: 2 Therapist That Will Oversee The Plan Of Care: Olivier Tejeda Start of Care Date: 06/02/17 Plan of Care Certification Date: 06/02/17 [facility] PHYSICAL THERAPY TREATMENT NOTE ASSESSMENT: Keshia Rojas demonstrated difficulty with unstable surface training for balance benefits, limited shoulder range of motion and strength. The patient will continue to benefit from continued skilled physical therapy for continued balance training, shoulder strengthening and improved range of motion. Patient may be issued pulleys next session. PLAN FOR NEXT VISIT: issue pulleys, implement shoulder strengthening, continue to progress balance exercises- possibly hurdles SUBJECTIVE: pt comes in today stating that she fell again. She was getting the trash. She bent over to pick a piece up that fell to the ground, and next thing she knew she was on the ground. She does not remember falling. Denies lightheadedness and dizziness. Left shoulder seems to be getting better for her with rest. Pain Score: 3/10 Pain Location: Shoulder - Left Description: Aching Frequency: Intermittent OBJECTIVE MEASURES WITH LEVEL OF FUNCTION: UE AROM R UE AROM: WFL L Shoulder Flex: (moderate limitation) L Shoulder ABduction: (WFL) L Shoulder Internal Rotation: (minimal limitation with pain) L Shoulder External Rotation: (moderate limitation with pain) UE Strength R UE Strength: 4+/5 L UE Strength: 4/5 TREATMENT: Therapeutic Exercise: 1: Shoulder pulleys x20 into flexion and abduction Skilled Intervention: Patient was educated in proper exercise technique and purpose for exercises. Skilled judgment was provided in selection of appropriate interventions. Neuromuscular Re-Education: 1: Standing on wobble board, [address] cuing for quiet tapping. 2x30 sec holds without letting the board touch the ground both front to back and side to side 2: Standing on foam pad x30 sec 3: Tandem stance on foam pad x30 sec each way 4: Walking tandem on foam beam x4 passes Skilled Intervention: Skilled judgment used to assess appropriate program for balance and coordination activity. Gait belt used for patient safety Self-Fpc Management: 1: 15 minutes spent discussing pt safety with walking, importance of forward gaze, using UE support as needed, and saying no to tasks at home or work with which she is uncomfortable or feels unsafe performing. Skilled Intervention: Skilled judgment in the selection of proper modification for activity of daily living/home management based on clinical presentation, deficits, and needs. Reviewed patient specific diagnosis in relation to activities of daily living/home management. Activity progression based on professional judgement. Billing: [facility]: Therapeutic Exercise (80110): 1:1 time: 3 minutes (no charge) Neuromuscular Re-education (03015): 1:1 time:15 minutes (1 unit: 8-22 mins) Educ Home Mgmt (72954): 1:1 time: 25 minutes (2 units: 23- 37 mins) Total time: 43 minutes Olivier Tejeda PT CNTHERAPY Observed: 06/10/2017 Status: COMPLETED Source: [place] 5:15 PM [facility] REPOSITORY OT/PT/Speech Visit (PTWS) KESHIA ROJAS ([id number]) 1950 F Date Time Provider Department 06/10/17 5:15 PM OLIVIER TEJEDA (PT) PTWS Date Time Provider Department Center 06/10/2017 5:15 PM [id number], SEAN (PT)PTWS [facility] Reason for Visit: Physical Therapy [503] PT Discharge [752] Reason For Visit History Recorded Primary Visit Diagnosis:Falls, subsequent encounter [W19.XXXD] Other Visit Diagnosis:Acute pain of left shoulder [M25.512] Allergies As of Date: 06/10/2017 Noted Allergy Reaction ekg patches [Other] 02/20/2006 4 - Hives Comments: skin gets red and raw needs hypoalergetic patches also any patch used for testing AGGRENOX (ASPIRIN-DIPYRIDAMOLE) 05/27/2011 14 - Other: See Comments Comments: Headache BACTRIM (SULFAMETHOXAZOLE-TRIMETH*03/20/2006 Comments: dizzy, redness, face flushed BETADINE (POVIDONE-IODINE) 11/04/2006 2 - Rash CETACAINE ([id number]*09/11/2012 14 - Other: See Comments Comments: excessive mucous production cigarettes [Other] 02/22/2010 12 - Shortness of Breath Comments: Hard to breath/has a sensitivity not an allergy CODEINE 03/07/2006 5 - Intolerance CORTISONE 12 - Shortness of Breath Comments: injection was given and swelled and had trouble breathing DEPOMEDROL [Other] 03/07/2006 7 - Swelling Comments: FACE SWELLED AFTER CORTISONE SHOT IN KNEE DETROL (TOLTERODINE TARTRATE) 03/07/2006 5 - Intolerance Comments: HEAD ACHE ,DRY MOUTH DITROPAN (OXYBUTYNIN CHLORIDE) 03/07/2006 5 - Intolerance Comments: DIZZY,SUN SENSITIVE LATEX 11/03/2009 2 - Rash MECLIZINE 03/07/2006 7 - Swelling Comments: URINARY RETENTION,FACE FELT FUNNY METOPROLOL 04/24/2006 8 - GI Upset Comments: headache.itching.hives. MYRBETRIQ (MIRABEGRON) 12/26/2014 14 - Other: See Comments Comments: elevated BP paper tape [Other] 08/15/2006 2 - Rash PREVACID (LANSOPRAZOLE) 03/07/2006 8 - GI Upset Comments: GAS,BURPING HEADACHE PRILOSEC (OMEPRAZOLE MAGNESIUM) 6 - Diarrhea TIZANIDINE 03/24/2014 14 - Other: See Comments Comments: increased pain ZELNORM (TEGASEROD HYDROGEN RACHELL*03/07/2006 4 - Hives Date Reviewed: 05/26/2017 Reviewed by: Adalgisa Alston LPN - Fully Assessed Prescriptions as of 06/10/2017 Sig: X DIAZEPAM 5 MG TABLET Take 1 tablet by mouth twice * Patient taking differently: Take 5 mg by mouth daily at b* DICLOFENAC 20 MG/GRAM/ACTUATI* Prescribed by Dr. Paz Patient not taking: Reported on 09/08/2017 WHITE PETROLATUM-MINERAL OIL * Dr. [facility] PROPYLENE GLYCOL-GLYCERIN 0.6* Use 2 Drops in both eyes as n* LEVOTHYROXINE 50 MCG TABLET Take 1 tablet by mouth once d* ESOMEPRAZOLE MAGNESIUM 20 MG * Take 1 capsule by mouth once * X ERYTHROMYCIN 5 MG/GRAM (0.5 %* Use 1 application in both eye* X LISINOPRIL 10 MG TABLET Take 1 tablet by mouth once d* CLOBETASOL 0.05 % LOTION Apply to affected area. GABAPENTIN 100 MG CAPSULE Take 3 capsules at bedtime (D* Patient taking differently: 300 mg daily at bedtime. Take* COMPOUNDED PRESCRIPTION SEMI ELECTRIC HOSPITAL BED AN* HYDROCODONE 5 MG-ACETAMINOPHE* Take 1 by mouth at bedtime POVIDONE IODINE 2% IN 0.9% NA* Irrigate 2 Drops as instructe* DOCUSATE SODIUM 100 MG CAPSULE Take 1 capsule by mouth twice* Patient not taking: Reported on 09/08/2017 COMPOUNDED PRESCRIPTION KNEE HIGH COMPRESSION STOCKIN* ACETAMINOPHEN 325 MG TABLET Take 650 mg by mouth every 6 * COMPOUNDED PRESCRIPTION Shackelford Antiseptic Powder (c* * MULTIVITAMIN TABLET Take 1 tablet by mouth twice * Progress Notes: Olivier Tejeda, PT 06/12/2017 11:17 AM Signed Episode Visit Count: 2 Therapist That Will Oversee The Plan Of Care: Olivier Tejeda Start of Care Date: 06/02/17 Plan of Care Certification Date: 06/02/17 REHABILITATION AND SPORTS THERAPY PHYSICAL THERAPY TREATMENT NOTE ASSESSMENT: Keshia Rojas demonstrated difficulty with unstable surface training for balance benefits, limited shoulder range of motion and strength. The patient will continue to benefit from continued skilled physical therapy for continued balance training, shoulder strengthening and improved range of motion. Patient may be issued pulleys next session. PLAN FOR NEXT VISIT: issue pulleys, implement shoulder strengthening, continue to progress balance exercises- possibly hurdles SUBJECTIVE: pt comes in today stating that she fell again. She was getting the trash. She bent over to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 Hysteroscopy - INTRO. 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 at 7o's - Cancer Paternal Grandfather MELONOMA - Colon Cancer Maternal Aunt - Hypertension Sister - Cancer Other LYMPHOBLASTOMA GREAT GRANDMOTHER PATERNAL - Heart / Stroke [Other] [OTHER] Maternal Grandmother AND CANCER OF STOMACH - Celiac disease [Other] [OTHER] Mother Cancer at 87 y/o - Breast Cancer Maternal Aunt diagnosed in her 90's - Colon Cancer Maternal Grandmother Social History Substance Use Topics - Smoking status: Never Smoker - Smokeless tobacco: Never Used - Alcohol use 6.0 oz/week Comment: occasionally rare ALLERGIES: ALLERGIES Allergen Reactions - Ekg Patches [Other] Hives skin gets red and raw needs hypoalergetic patches also any patch used for testing - Aggrenox [Aspirin-D* Other: See Comments Headache - Bactrim [Sulfametho* dizzy, redness, face flushed - Betadine [Povidone-* Rash - Cetacaine [Butamben* Other: See Comments excessive mucous production - Codeine Intolerance - Cortisone Shortness of Breath injection was given and swelled and had trouble breathing - Depomedrol [Other] Swelling FACE SWELLED AFTER CORTISONE SHOT IN KNEE - Detrol [Tolterodine* Intolerance HEAD ACHE ,DRY MOUTH - Ditropan [Oxybutyni* Intolerance DIZZY,SUN SENSITIVE - Latex Rash - Meclizine Swelling URINARY RETENTION,FACE FELT FUNNY - Metoprolol GI Upset headache.itching.hives. - Myrbetriq [Mirabegr* Other: See Comments elevated BP - Prevacid [Lansopraz* GI Upset GAS,BURPING HEADACHE - Prilosec [Omeprazol* Diarrhea - Tizanidine Other: See Comments increased pain - Zelnorm [Tegaserod * Hives - Cigarettes [Other] Shortness of Breath Hard to breath/has a sensitivity not an allergy - Paper Tape [Other] Rash MEDICATIONS diazePAM (VALIUM) 5 mg tablet TAKE ONE TABLET BY MOUTH TWICE DAILY NEEDED FOR VERTIGO OR ANXIETY diclofenac sodium (PENNSAID) 20 mg/gram /actuation(2 %) sopm Prescribed by Dr. Jackson wells petrolatum 94% - mineral oil 3% 94-3 % oint [facility]. [facility] propylene glycol-glycerin (SOOTHE) 0.6-0.6 % Use 2 Drops in both eyes as needed. levothyroxine (SYNTHROID) 50 mcg tablet Take 1 tablet by mouth once daily. esomeprazole (NEXIUM 24HR) 20 mg capsule Take 1 capsule by mouth once daily. Needs Namebrand over the counter, not generic. erythromycin ophthalmic ointment Use 1 application in both eyes daily at bedtime. Every other night (Drs. Irwin and Guera) lisinopril (ZESTRIL, PRINIVIL) 10 mg tablet Take 1 tablet by mouth once daily. Clobetasol Propionate 0.05 % lotn Apply to affected area. gabapentin (NEURONTIN) 100 mg capsule Take 3 capsules at bedtime (Dr. 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 docusate sodium (COLACE) 100 mg capsule Take 1 capsule by mouth twice daily as needed for Constipation. Compression Knee Highs KNEE HIGH COMPRESSION STOCKINGS 20- 30 MM. DX: EDEMA 782.3, venous insuffiency 459.81(Futuro therapeutic open heel and open toe if available) acetaminophen (TYLENOL) 325 mg tablet Take 650 mg by mouth every 6 hours as needed. COMPOUNDED PRESCRIPTION Shackelford Antiseptic Powder (carbolic acid; zinc oxide) as needed per Dr. Arleen Burdick multivitamin ORAL tablet Take 1 tablet by mouth twice daily. REVIEW OF SYSTEMS: GENERAL: Negative for: Weight loss or gain, Fever or Chills, Weakness and Sleep difficulties. Physical Examination: BP 126/72 Pulse 80 Resp 16 Wt 172 lb (78.0kg) Extended Vitals not filed for this encounter. General appearance: Well appearing, alert, in no acute distress, well-hydrated, well nourished. Skin: Skin color, texture, turgor normal, no suspicious rashes or lesions Extremities: No deformities, edema, skin discoloration, clubbing or cyanosis. Good capillary refill. Musculoskeletal: Ecchymosis right knee. Muscular strength intact, No joint swelling, deformity, or tenderness Peripheral pulses: Normal Neuro: Gait slow and appears painful. Sensation grossly intact. Reviewed chart, outside records, tests OAS website checked and validated. All prescriptions have been APPROPRIATELY filled. No suspicious activity was identified.- 05/26/2017 by SANDRA Retana I personally interviewed, confirmed and edited the above information if obtained by others. TESTING: Glucose (mg/dL) Date Value 05/22/2017 111 Potassium (mmol/L) Date Value 05/22/2017 4.6 Sodium (mmol/L) Date Value 05/22/2017 141 Chloride (mmol/L) Date Value 05/22/2017 103 CO2 (mmol/L) Date Value 05/22/2017 26 Creatinine (mg/dL) Date Value 05/22/2017 0.76 BUN (mg/dL) Date Value 05/22/2017 14 Anion Gap (mmol/L) Date Value 05/22/2017 12 Calcium (mg/dL) Date Value 05/22/2017 9.8 Glucose (mg/dL) Date Value 05/22/2017 111 Potassium (mmol/L) Date Value 05/22/2017 4.6 Sodium (mmol/L) Date Value 05/22/2017 141 Chloride (mmol/L) Date Value 05/22/2017 103 CO2 (mmol/L) Date Value 05/22/2017 26 Creatinine (mg/dL) Date Value 05/22/2017 0.76 BUN (mg/dL) Date Value 05/22/2017 14 Anion Gap (mmol/L) Date Value 05/22/2017 12 Calcium (mg/dL) Date Value 05/22/2017 9.8 Protein, Total (g/dL) Date Value 01/02/2016 7.5 Albumin (g/dL) Date Value 01/02/2016 4.4 Bilirubin, Total (mg/dL) Date Value 01/02/2016 0.5 Alkaline Phosphatase (U/L) Date Value 01/02/2016 70 AST (U/L) Date Value 01/02/2016 17 ALT (U/L) Date Value 01/02/2016 21 Hemoglobin (g/dL) Date Value 01/02/2016 15.6 Hematocrit (%) Date Value 01/02/2016 47.5 WBC (k/uL) Date Value 01/02/2016 14.50 Cholesterol, Total (mg/dL) Date Value 05/22/2017 205 HDL Cholesterol (mg/dL) Date Value 05/22/2017 54 LDL Cholesterol (mg/dL) Date Value 05/22/2017 126 Triglyceride (mg/dL) Date Value 05/22/2017 124 Hemoglobin A1C Date Value Ref Range Status 05/22/2017 5.9 (H) 4.3 - 5.6 % Final 11/05/2016 6.1 (H) 4.3 - 5.6 % Final Comment: [place] [employer] guidelines indicate that patients with HgbA1c in the range 5.7-6.4% are at increased risk for development of diabetes, and intervention by lifestyle modification may be beneficial. HgbA1c greater or equal to 6.5% is considered diagnostic of diabetes. 06/19/2016 6.3 (H) 4.3 - 5.6 % Final Comment: [place] [employer] guidelines indicate that patients with HgbA1c in the range 5.7-6.4% are at increased risk for development of diabetes, and intervention by lifestyle modification may be beneficial. HgbA1c greater or equal to 6.5% is considered diagnostic of diabetes. 03/12/2016 6.2 (H) 4.3 - 5.6 % Final Comment: [place] [employer] guidelines indicate that patients with HgbA1c in the range 5.7-6.4% are at increased risk for development of diabetes, and intervention by lifestyle modification may be beneficial. HgbA1c greater or equal to 6.5% is considered diagnostic of diabetes. 01/02/2016 6.2 (H) 4.3 - 5.6 % Final Comment: [place] [employer] guidelines indicate that patients with HgbA1c in the range 5.7-6.4% are at increased risk for development of diabetes, and intervention by lifestyle modification may be beneficial. HgbA1c greater or equal to 6.5% is considered diagnostic of diabetes. Component Latest Ref Rng AND Units 06/19/2016 11/05/2016 05/22/2017 Glucose 74 - 99 mg/dL 111 (H) 111 (H) BUN 7 - 21 mg/dL 15 14 Creatinine 0.58 - 0.96 mg/dL 0.88 0.76 Sodium 136 - 144 mmol/L 141 141 Potassium 3.7 - 5.1 mmol/L 3.8 4.6 Chloride 97 - 105 mmol/L 101 103 CO2 22 - 30 mmol/L 27 26 Anion Gap 9 - 18 mmol/L 13 12 Calcium 8.5 - 10.2 mg/dL 9.4 9.8 eGFR- >60 >60 eGFR-All Other Races . >60 >60 Triglyceride <150 mg/dL 158 (H) 124 Cholesterol, Total <200 mg/dL 199 205 (H) HDL Cholesterol >39 mg/dL 47 (L) 54 VLDL Cholesterol <30 mg/dL 32 25 LDL Cholesterol <100 mg/dL 120 126 (H) Fasting Time hrs 14 10 TC:HDL Ratio <5.10 4.23 3.80 LDL:HDL Ratio <2.54 2.55 2.33 Non HDL Cholesterol <130 mg/dL 152 151 (H) Hemoglobin A1C 4.3 - 5.6 % 6.1 (H) 5.9 (H) Estimated Average Glucose mg/dL 128 123 Ejection Fraction - Result: 70 % Date: 09/13/2010 Time: 13:45:55 IMPRESSION: Ms. Rojas is a 67 year old woman presents for follow up visit. After my examination and review of data, I make the following recommendations. PLAN AND RECOMMENDATIONS: 1. Fall, initial encounter - ICD9: E888.9, ICD10: W19.XXXA (primary diagnosis) LOUANN, provided with home stretches / exercises to complete - XR PELVIS 1V AP - CONSULT TO PHYSICAL THERAPY 2. Left buttock pain - ICD9: 729.1, ICD10: M79.1 - CONSULT TO PHYSICAL THERAPY 3. Acute pain of left shoulder - ICD9: 719.41, ICD10: M25.512 - CONSULT TO PHYSICAL THERAPY - XR SHOULDER LIMITED 2V AP/TRUE AP LT 4. Anxiety - ICD9: 300.00, ICD10: F41.9 Continue with valium at bedtime. She reports concerns about her but declines social work appt at this time, has seen previously. She will let us know if concerns about and would like additional intervention Advised to go to ER if develops chest pain, shortness of breath, or severe worsening of symptoms. Discussed risks, benefits, alternatives, and potential side effects of medications. Ms. Rojas expressed understanding and agreed with the plan. Juan Rodriguez, SANDRA CNOV Observed: 05/26/2017 Status: COMPLETED Source: [place] 1:00 PM [facility] Office Visit (INTMWS) KESHIA ROJAS ([id number]) 1950 F Date Time Provider Department 05/26/17 1:00 PM JUAN RODRIGUEZ (SANDRA) INTMWS During your visit today, we recorded the following information about you: Pulse Respiration Blood pressure Weight 80/minute 16/minute 126/72 78 kg Juan Rodriguez APRN.VARGHESE FLORES 06/10/2017 8:39 AM Addendum OUTPATIENT VISIT DATE May 26, 2017 OUTPATIENT VISIT TYPE ESTABLISHED PRIMARY CARE PHYSICIAN: Paulo Scott MD CHIEF COMPLAINT: Patient presents with: F/U 3 Month History of Present Illness: Keshia Rojas is a 67 year old female who was last seen 02/2017 by Paulo Scott MD. 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 Takes valium for vertigo and anxiety. Ms. Rojas has complaint of increased stress. She has felt this way since her was diagnosed with cancer. He has had difficulty dealing with the stress of this and the stress of it is related then to her. She is using valium once daily at for sleep. Finds that is working well for her. No report of AE. Follows with Dr. Paz for pain management. Since the last visit, she states that she fell down x 2 at a job interview at [employer] No recent hospital or ED visits. No new medical problems or medications. Able to obtain medications. No problems with taking medications or note side effects. 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 (Dr. Charlton) - Cataracts, both eyes - Coronary atherosclerosis of unspecified type of vessel, douglas or graft minimal plaque on cath 08/06/2006 - DVT (deep venous thrombosis) ([facility]) 2010 Right leg OCTOBER 2009 NOT TREATED - Dysmetabolic syndrome X - Esophageal reflux - Fibromyalgia better with Lyrica - Floppy eyelid syndrome - Hiatal hernia Large when seen on EGD 10/2010 at [facility] (Dr. 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 Chavarria - DANDamp;C, DIAG AND/OR THERAPEUTIC 07/24/2005 Dilation ANDamp; curettage - EXC TUMOR SOFT TISS FOREARM AND/WRIST SUBQ 3+CM Right 11/04/15 Exc. right forearm lipoma - HYSTEROSCOPY, DIAGNOSTIC (SEPARATE 07/24/2005 Hysteroscopy - INTRO. 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 at 7o's - Cancer Paternal Grandfather MELONOMA - Colon Cancer Maternal Aunt - Hypertension Sister - Cancer Other LYMPHOBLASTOMA GREAT GRANDMOTHER PATERNAL - Heart / Stroke [Other] [OTHER] Maternal Grandmother AND CANCER OF STOMACH - Celiac disease [Other] [OTHER] Mother Cancer at 87 y/o - Breast Cancer Maternal Aunt diagnosed in her 90's - Colon Cancer Maternal Grandmother Social History Substance Use Topics - Smoking status: Never Smoker - Smokeless tobacco: Never Used - Alcohol use 6.0 oz/week Comment: occasionally rare ALLERGIES: ALLERGIES Allergen Reactions - Ekg Patches [Other] Hives skin gets red and raw needs hypoalergetic patches also any patch used for testing - Aggrenox [Aspirin-D* Other: See Comments Headache - Bactrim [Sulfametho* dizzy, redness, face flushed - Betadine [Povidone-* Rash - Cetacaine [Butamben* Other: See Comments excessive mucous production - Codeine Intolerance - Cortisone Shortness of Breath injection was given and swelled and had trouble breathing - Depomedrol [Other] Swelling FACE SWELLED AFTER CORTISONE SHOT IN KNEE - Detrol [Tolterodine* Intolerance HEAD ACHE ,DRY MOUTH - Ditropan [Oxybutyni* Intolerance DIZZY,SUN SENSITIVE - Latex Rash - Meclizine Swelling URINARY RETENTION,FACE FELT FUNNY - Metoprolol GI Upset headache.itching.hives. - Myrbetriq [Mirabegr* Other: See Comments elevated BP - Prevacid [Lansopraz* GI Upset GAS,BURPING HEADACHE - Prilosec [Omeprazol* Diarrhea - Tizanidine Other: See Comments increased pain - Zelnorm [Tegaserod * Hives - Cigarettes [Other] Shortness of Breath Hard to breath/has a sensitivity not an allergy - Paper Tape [Other] Rash MEDICATIONS diazePAM (VALIUM) 5 mg tablet TAKE ONE TABLET BY MOUTH TWICE DAILY NEEDED FOR VERTIGO OR ANXIETY diclofenac sodium (PENNSAID) 20 mg/gram /actuation(2 %) sopm Prescribed by Dr. Jackson wells petrolatum 94% - mineral oil 3% 94-3 % oint [facility]. [facility] propylene glycol-glycerin (SOOTHE) 0.6-0.6 % Use 2 Drops in both eyes as needed. levothyroxine (SYNTHROID) 50 mcg tablet Take 1 tablet by mouth once daily. esomeprazole (NEXIUM 24HR) 20 mg capsule Take 1 capsule by mouth once daily. Needs Namebrand over the counter, not generic. erythromycin ophthalmic ointment Use 1 application in both eyes daily at bedtime. Every other night (Drs. Irwin and Guera) lisinopril (ZESTRIL, PRINIVIL) 10 mg tablet Take 1 tablet by mouth once daily. Clobetasol Propionate 0.05 % lotn Apply to affected area. gabapentin (NEURONTIN) 100 mg capsule Take 3 capsules at bedtime (Dr. 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 docusate sodium (COLACE) 100 mg capsule Take 1 capsule by mouth twice daily as needed for Constipation. Compression Knee Highs KNEE HIGH COMPRESSION STOCKINGS 20- 30 MM. DX: EDEMA 782.3, venous insuffiency 459.81(Futuro therapeutic open heel and open toe if available) acetaminophen (TYLENOL) 325 mg tablet Take 650 mg by mouth every 6 hours as needed. COMPOUNDED PRESCRIPTION [place]ord Antiseptic Powder (carbolic acid; zinc oxide) as needed per Dr. Arleen Burdick multivitamin ORAL tablet Take 1 tablet by mouth twice daily. REVIEW OF SYSTEMS: GENERAL: Negative for: Weight loss or gain, Fever or Chills, Weakness and Sleep difficulties. Physical Examination: BP 126/72 Pulse 80 Resp 16 Wt 172 lb (78.0kg) Extended Vitals not filed for this encounter. General appearance: Well appearing, alert, in no acute distress, well-hydrated, well nourished. Skin: Skin color, texture, turgor normal, no suspicious rashes or lesions Extremities: No deformities, edema, skin discoloration, clubbing or cyanosis. Good capillary refill. Musculoskeletal: Ecchymosis right knee. Muscular strength intact, No joint swelling, deformity, or tenderness Peripheral pulses: Normal Neuro: Gait slow and appears painful. Sensation grossly intact. Reviewed chart, outside records, tests OAS website checked and validated. All prescriptions have been APPROPRIATELY filled. No suspicious activity was identified.- 05/26/2017 by Juan Rodriguez SPICE MIXER I personally interviewed, confirmed and edited the above information if obtained by others. TESTING: Glucose (mg/dL) Date Value 05/22/2017 111 Potassium (mmol/L) Date Value 05/22/2017 4.6 Sodium (mmol/L) Date Value 05/22/2017 141 Chloride (mmol/L) Date Value 05/22/2017 103 CO2 (mmol/L) Date Value 05/22/2017 26 Creatinine (mg/dL) Date Value 05/22/2017 0.76 BUN (mg/dL) Date Value 05/22/2017 14 Anion Gap (mmol/L) Date Value 05/22/2017 12 Calcium (mg/dL) Date Value 05/22/2017 9.8 Glucose (mg/dL) Date Value 05/22/2017 111 Potassium (mmol/L) Date Value 05/22/2017 4.6 Sodium (mmol/L) Date Value 05/22/2017 141 Chloride (mmol/L) Date Value 05/22/2017 103 CO2 (mmol/L) Date Value 05/22/2017 26 Creatinine (mg/dL) Date Value 05/22/2017 0.76 BUN (mg/dL) Date Value 05/22/2017 14 Anion Gap (mmol/L) Date Value 05/22/2017 12 Calcium (mg/dL) Date Value 05/22/2017 9.8 Protein, Total (g/dL) Date Value 01/02/2016 7.5 Albumin (g/dL) Date Value 01/02/2016 4.4 Bilirubin, Total (mg/dL) Date Value 01/02/2016 0.5 Alkaline Phosphatase (U/L) Date Value 01/02/2016 70 AST (U/L) Date Value 01/02/2016 17 ALT (U/L) Date Value 01/02/2016 21 Hemoglobin (g/dL) Date Value 01/02/2016 15.6 Hematocrit (%) Date Value 01/02/2016 47.5 WBC (k/uL) Date Value 01/02/2016 14.50 Cholesterol, Total (mg/dL) Date Value 05/22/2017 205 HDL Cholesterol (mg/dL) Date Value 05/22/2017 54 LDL Cholesterol (mg/dL) Date Value 05/22/2017 126 Triglyceride (mg/dL) Date Value 05/22/2017 124 Hemoglobin A1C Date Value Ref Range Status 05/22/2017 5.9 (H) 4.3 - 5.6 % Final 11/05/2016 6.1 (H) 4.3 - 5.6 % Final Comment: [place] [employer] guidelines indicate that patients with HgbA1c in the range 5.7-6.4% are at increased risk for development of diabetes, and intervention by lifestyle modification may be beneficial. HgbA1c greater or equal to 6.5% is considered diagnostic of diabetes. 06/19/2016 6.3 (H) 4.3 - 5.6 % Final Comment: [place] [employer] guidelines indicate that patients with HgbA1c in the range 5.7-6.4% are at increased risk for development of diabetes, and intervention by lifestyle modification may be beneficial. HgbA1c greater or equal to 6.5% is considered diagnostic of diabetes. 03/12/2016 6.2 (H) 4.3 - 5.6 % Final Comment: [place] [employer] guidelines indicate that patients with HgbA1c in the range 5.7-6.4% are at increased risk for development of diabetes, and intervention by lifestyle modification may be beneficial. HgbA1c greater or equal to 6.5% is considered diagnostic of diabetes. 01/02/2016 6.2 (H) 4.3 - 5.6 % Final Comment: [place] [employer] guidelines indicate that patients with HgbA1c in the range 5.7-6.4% are at increased risk for development of diabetes, and intervention by lifestyle modification may be beneficial. HgbA1c greater or equal to 6.5% is considered diagnostic of diabetes. Component Latest Ref Rng ANDamp; Units 06/19/2016 11/05/2016 05/22/2017 Glucose 74 - 99 mg/dL 111 (H) 111 (H) BUN 7 - 21 mg/dL 15 14 Creatinine 0.58 - 0.96 mg/dL 0.88 0.76 Sodium 136 - 144 mmol/L 141 141 Potassium 3.7 - 5.1 mmol/L 3.8 4.6 Chloride 97 - 105 mmol/L 101 103 CO2 22 - 30 mmol/L 27 26 Anion Gap 9 - 18 mmol/L 13 12 Calcium 8.5 - 10.2 mg/dL 9.4 9.8 eGFR- ANDgt;60 ANDgt;60 eGFR-All Other Races . ANDgt;60 ANDgt;60 Triglyceride ANDlt;150 mg/dL 158 (H) 124 Cholesterol, Total ANDlt;200 mg/dL 199 205 (H) HDL Cholesterol ANDgt;39 mg/dL 47 (L) 54 VLDL Cholesterol ANDlt;30 mg/dL 32 25 LDL Cholesterol ANDlt;100 mg/dL 120 126 (H) Fasting Time hrs 14 10 TC:HDL Ratio ANDlt;5.10 4.23 3.80 LDL:HDL Ratio ANDlt;2.54 2.55 2.33 Non HDL Cholesterol ANDlt;130 mg/dL 152 151 (H) Hemoglobin A1C 4.3 - 5.6 % 6.1 (H) 5.9 (H) Estimated Average Glucose mg/dL 128 123 Ejection Fraction - Result: 70 % Date: 09/13/2010 Time: 13:45:55 IMPRESSION: Ms. Rojas is a 67 year old woman presents for follow up visit. After my examination and review of data, I make the following recommendations. PLAN AND RECOMMENDATIONS: 1. Fall, initial encounter - ICD9: E888.9, ICD10: W19.XXXA (primary diagnosis) RICE, provided with home stretches / exercises to complete - XR PELVIS 1V AP - CONSULT TO PHYSICAL THERAPY 2. Left buttock pain - ICD9: 729.1, ICD10: M79.1 - CONSULT TO PHYSICAL THERAPY 3. Acute pain of left shoulder - ICD9: 719.41, ICD10: M25.512 - CONSULT TO PHYSICAL THERAPY - XR SHOULDER LIMITED 2V AP/TRUE AP LT 4. Anxiety - ICD9: 300.00, ICD10: F41.9 Continue with valium at bedtime. She reports concerns about her but declines social work appt at this time, has seen previously. She will let us know if concerns about and would like additional intervention Advised to go to ER if develops chest pain, shortness of breath, or severe worsening of symptoms. Discussed risks, benefits, alternatives, and potential side effects of medications. Ms. Rojas expressed understanding and agreed with the plan. Juan Rodriguez, SPICE MIXER Referring Provider: SELF [200] Allergies As of Date: 05/26/2017 Noted Allergy Reaction ekg patches [Other] 02/20/2006 4 - Hives Comments: skin gets red and raw needs hypoalergetic patches also any patch used for testing AGGRENOX (ASPIRIN-DIPYRIDAMOLE) 05/27/2011 14 - Other: See Comments Comments: Headache BACTRIM (SULFAMETHOXAZOLE-TRIMETH*03/20/2006 Comments: dizzy, redness, face flushed BETADINE (POVIDONE-IODINE) 11/04/2006 2 - Rash CETACAINE (LSEEIXPF-ILSLHFCTGO-PR*09/11/2012 14 - Other: See Comments Comments: excessive mucous production CODEINE 03/07/2006 5 - Intolerance CORTISONE 12 - Shortness of Breath Comments: injection was given and swelled and had trouble breathing DEPOMEDROL [Other] 03/07/2006 7 - Swelling Comments: FACE SWELLED AFTER CORTISONE SHOT IN KNEE DETROL (TOLTERODINE TARTRATE) 03/07/2006 5 - Intolerance Comments: HEAD ACHE ,DRY MOUTH DITROPAN (OXYBUTYNIN CHLORIDE) 03/07/2006 5 - Intolerance Comments: DIZZY,SUN SENSITIVE LATEX 11/03/2009 2 - Rash MECLIZINE 03/07/2006 7 - Swelling Comments: URINARY RETENTION,FACE FELT FUNNY METOPROLOL 04/24/2006 8 - GI Upset Comments: headache.itching.hives. MYRBETRIQ (MIRABEGRON) 12/26/2014 14 - Other: See Comments Comments: elevated BP PREVACID (LANSOPRAZOLE) 03/07/2006 8 - GI Upset Comments: GAS,BURPING HEADACHE PRILOSEC (OMEPRAZOLE MAGNESIUM) 6 - Diarrhea TIZANIDINE 03/24/2014 14 - Other: See Comments Comments: increased pain ZELNORM (TEGASEROD HYDROGEN RACHELL*03/07/2006 4 - Hives cigarettes [Other] 02/22/2010 12 - Shortness of Breath Comments: Hard to breath/has a sensitivity not an allergy paper tape [Other] 08/15/2006 2 - Rash Date Reviewed: 05/26/2017 Reviewed by: Adalgisa Alston LPN - Fully Assessed Reason for Visit: F/U 3 Month [443] Primary Visit Diagnosis:Fall, initial encounter [W19.XXXA] Other Visit Diagnoses:Left buttock pain [M79.1] Acute pain of left shoulder [M25.512] Anxiety [F41.9] Mixed hyperlipidemia [E78.2] Acquired hypothyroidism [E03.9] Order(s):XR PELVIS 1V AP [9276157] Order #: [id number] FUTURE CONSULT TO PHYSICAL THERAPY [9032] Order #: [id number]: 1 XR SHOULDER LIMITED 2V AP/TRUE AP LT [[id number]] Order #: [id number]. #:[id number] FUTURE Prescriptions as of 05/26/2017 Sig: X DIAZEPAM 5 MG TABLET TAKE ONE TABLET BY MOUTH TWIC* DICLOFENAC 20 MG/GRAM/ACTUATI* Prescribed by Dr. Jackson WELLS PETROLATUM-MINERAL OIL * Dr. Lynne [facility] PROPYLENE GLYCOL-GLYCERIN 0.6* Use 2 Drops in both eyes as n* LEVOTHYROXINE 50 MCG TABLET Take 1 tablet by mouth once d* ESOMEPRAZOLE MAGNESIUM 20 MG * Take 1 capsule by mouth once * ERYTHROMYCIN 5 MG/GRAM (0.5 %* Use 1 application in both eye* LISINOPRIL 10 MG TABLET Take 1 tablet by mouth once d* CLOBETASOL 0.05 % LOTION Apply to affected area. GABAPENTIN 100 MG CAPSULE Take 3 capsules at bedtime (D* COMPOUNDED PRESCRIPTION [facility] BED AN* HYDROCODONE 5 MG-ACETAMINOPHE* Take 1 by mouth at bedtime POVIDONE IODINE 2% IN 0.9% NA* Irrigate 2 Drops as instructe* DOCUSATE SODIUM 100 MG CAPSULE Take 1 capsule by mouth twice* COMPOUNDED PRESCRIPTION KNEE HIGH COMPRESSION STOCKIN* ACETAMINOPHEN 325 MG TABLET Take 650 mg by mouth every 6 * COMPOUNDED PRESCRIPTION [place] Antiseptic Powder (c* * MULTIVITAMIN TABLET Take 1 tablet by mouth twice * Problem List As Of Date 05/26/2017 Noted Resolved Essential hypertension [I10] Acute, but ill-defined, cerebrovascular disease*INVALID FOR*12/28/2016 Priority: B More... Mixed hyperlipidemia [E78.2] Coronary atherosclerosis [I25.10] 1) Laparotomy 2) Joann gastroplasty 3) Wedge t* 06/30/2011 Priority: A More... IRRITABLE COLON [K58.9] DYSMETABOLIC SYNDROME X [E88.81] Hypothyroidism [E03.9] Priority: D More... DVT (deep venous thrombosis) ([facility]) [I82.409] INVALID FOR*03/04/2017 Priority: G More... Anemia [D64.9] INVALID FOR* 1) Laparotomy 2) Joann gastroplasty 3) Wedge * Priority: A More... Obesity [E66.9] Discharge planning [Z71.89] INVALID FOR*09/03/2011 Priority: G More... Other acute postoperative pain [G89.18] INVALID FOR*09/03/2011 Priority: B More... 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 OAB (overactive bladder) [N32.81] INVALID FOR* Reversed peristalsis [R19.2] INVALID FOR* More... Stress incontinence [N39.3] INVALID FOR* Urge incontinence [N39.41] INVALID FOR* Frequency of urination [R35.0] INVALID FOR* Nocturia [R35.1] INVALID FOR* Kidney stone [N20.0] INVALID FOR* Anxiety [F41.9] INVALID FOR* Marital conflict [Z63.0] INVALID FOR* Cephalalgia [R51] INVALID FOR* IFG (impaired fasting glucose) [R73.01] INVALID FOR* Lipoma of right upper extremity [D17.21] INVALID FOR* Vertigo [R42] INVALID FOR* Encounter Status:Closed by JUAN BAEZ on 05/26/17 BASIC METABOLIC PANL Collected: 05/22/2017 Status: F Source: [place] 7:54 AM [facility] [place] REPOSITORY TYPE CODE TESTS RESULT OUT OF REFERENCE UNITS RANGE LAB GLU 74-99 mg/dL High Glucose 111 Result Comment: The [place] Diabetes Association (ADA) provides guidance for cutoff values for fasting glucose and random glucose. The ADA defines fasting as no caloric intake for at least 8 hours. Fas ting plasma glucose results between 100 to 125 mg/dL indicate increased risk for diabetes (prediabetes). Fasting plasma glucose results greater than or equal to 126 mg/dL meet the criteria for diagnosis of diabetes. In the absence of unequivocal hyperglycemia, results should be confirmed by repeat testing. In a patient with classic symptoms of hyperglycemia or hyperglycemic crisis, random plasma glucose results greater than or equal to 200 mg/dL meet the criteria for diagnosis of diabetes. Reference: Standards of Medical Care in Diabetes 2016, [place] Diabetes Association. Diabetes Care. 2016.39(Suppl 1). LAB BUN 7-21 mg/dL BUN 14 LAB CRET 0.58-0.96 mg/dL Creatinine 0.76 LAB NA 136-144 mmol/L Sodium 141 LAB K 3.7-5.1 mmol/L Potassium 4.6 LAB CL 97-105 mmol/L Chloride 103 LAB CO2 22-30 mmol/L CO2 26 LAB AGAP 9-18 mmol/L Anion Gap 12 LAB CA 8.5-10.2 mg/dL Calcium, Total 9.8 LAB GFRAA eGFR- Amer. >60 LAB GFRNAA . eGFR-All Other Races >60 Result Comment: eGFR (Estimated GFR) Units of measure: mL/min/1.73 meters squared eGFR is derived from the reexpressed MDRD Study equation using the following parameters: serum creatinine, age, gender and race. The creatinine assay has been calibrated to be traceable to IDMS. An eGFR <60 mL/min/1.73m2 for >3 months is consistent with chronic kidney disease. Refer to KDOQI guidelines for clinical interpretation. In patients with unstable renal function, e.g. those with acute kidney injury, the eGFR may not accurately reflect actual GFR. Performed By: #### BMP, LIPB, HBA1C #### [facility] [address] [place], [place] [address] LIPID PANEL, BASIC Collected: 05/22/2017 Status: F Source: [place] 7:54 AM [facility] REPOSITORY TYPE CODE TESTS RESULT OUT OF REFERENCE UNITS RANGE LAB CHOL <200 mg/dL Cholesterol High 205 Result Comment: <200 mg/dL, Desirable 200-239 mg/dL, Borderline high >239 mg/dL, High LAB TRIGLY <150 mg/dL Triglyceride 124 Result Comment: <150 mg/dL, Normal 150-199 mg/dL, Borderline high 200-499 mg/dL, High >499 mg/dL, Very high LAB HDL >39 mg/dL HDL-Cholesterol 54 Result Comment: 40-59 mg/dL, Acceptable >59 mg/dL, High: Negative risk factor for coronary heart disease <40 mg/dL, Low: Positive risk factor for coronary heart disease LAB LDL <100 mg/dL LDL-Cholesterol High 126 Result Comment: <100 mg/dL, Optimal 100-129 mg/dL, Near optimal/above optimal 130-159 mg/dL, Borderline high 160-189 mg/dL, High >189 mg/dL, Very high Secondary prevention optimal LDL Cholesterol levels are recommended to be < 70 mg/dL LAB NONHDL <130 mg/dL Non HDL High Cholesterol 151 Result Comment: <130 mg/dL, Optimal 130-159 mg/dL, Near optimal/above optimal 160-189 mg/dL, Borderline high 190-219 mg/dL, High >219 mg/dL, Very high Secondary prevention optimal non HDL Cholesterol levels are recommended to be < 100 mg/dL LAB FT hrs Fasting Time 10 LAB VLDL <30 mg/dL VLDL Cholesterol 25 LAB TCHDL <5.10 TC:HDL Ratio 3.80 LAB LDLHDL <2.54 LDL:HDL Ratio 2.33 Result Comment: Reference: 1. National Cholesterol Education Program ATP III Guideline At-A-Glance Quick Desk Reference: National Heart, Lung, and Blood [place]. National Institutes of Health. 2001: NIH Publication No. 01-3305. 2. An International Atherosclerosis Society position paper: global recommendations for the management of dyslipidemia: executive summary, Atherosclerosis. 2014: 232(2):410-413. Performed By: #### BMP, LIPB, HBA1C #### [facility] [address], [place] [address] HEMOGLOBIN A1C Collected: 05/22/2017 Status: F Source: [place] 7:54 AM [facility] [place] REPOSITORY TYPE CODE TESTS RESULT OUT OF REFERENCE UNITS RANGE LAB HGBA1C 4.3-5.6 % High Hemoglobin A1c 5.9 LAB HBA0 mg/dL Est. Average Glucose 123 Result Comment: eAG: (Estimated average glucose) is a calculated value from HgbA1c and is patient account representative of the average blood glucose level in the last 2-3 month period. Performed By: #### BMP, LIPB, HBA1C #### [facility] [address], [place] [address] CNCO Observed: 04/28/2017 Status: COMPLETED Source: [place] 1:36 PM [facility] REPOSITORY HNO ID: [id number] Author: Mammography Coordinator Service: (none) Author Type: Physician Type: Letter Filed: 04/29/2017 11:32 PM Note Text: April 28, 2017 PID: [id number] Keshia Rojas [address] [place], [place] [address] Dear Ms. Rojas, We are pleased to inform you that the results of your recent breast imaging exam on 04/28/2017 are normal. Early detection of cancer is very important. We also understand recommendations regarding breast cancer screening are controversial. Please discuss with your primary care provider which strategy is best for you and whether a mammogram is right for you. Your imaging studies and report will be kept on file at [facility] as part of your permanent medical record and are available for your continuing care. Thank you for allowing us to help in meeting your health care needs. Sincerely, Dr. Sandoval Interpreting Radiologist [facility] (Normal over 40) FORTUNATO SCREENING Observed: 04/28/2017 Status: F Source: [place] 1:21 PM [facility] REPOSITORY * * *Final Report* * * DATE OF EXAM: Apr 28 2017 1:21PM FRANKLIN Solis81 - [facility] SCREENING / PROCEDURE REASON: Encounter for screening mammogram for malignant neoplasm of breast * * * * Physician Interpretation * * * * RESULT: #[id number] - FORTUNATO SCREENING BILATERAL DIGITAL SCREENING MAMMOGRAM WITH CAD: 04/28/2017 HISTORY: Encounter For Screening Mammogram For Malignant Neoplasm Of Breast /Screening Mammogram - patient reports NO breast symptoms /Priors available for comparison. RESULT: TECHNIQUE: The study was acquired using full field digital technology and interpreted from soft copy. Current study was also evaluated with a Computer Aided Detection (CAD). Comparison is made to exams dated: 04/22/2016 mammogram, 04/21/2015 mammogram, and 02/17/2014 mammogram - [facility]. The tissue of both breasts is predominantly fatty. No significant masses, calcifications, or other findings are seen in either breast. There has been no significant interval change. IMPRESSION: NEGATIVE There is no mammographic evidence of malignancy.A 1 year screening mammogram is recommended. Sindy Sandoval M.D., lp/harshad:04/28/2017 13:36:06 Compounding Scaler: Salena BRIDGES (R)([place]), [facility] letter sent: Normal over 40 Mammogram BI-RADS: 1 Negative Healthcare Educator: Harshad Transcribe Date/Time: Apr 28 2017 12:59P Dictated by: SINDY SANDOVAL MD This examination was interpreted and the report reviewed and electronically signed by: SINDY SANDOVAL MD on Apr 28 2017 1:36PM EST [id number] ALLERGIES ALLERGIES DATE TYPE / CODE NAME / CODE REACTION SEVERITY SOURCE 01/24/20 Drug oxybutynin Unknown Unknown [place] [facility] Allergy/043152105 chloride/P063050372(RX [facility] (SNOMED CT) NORM) Hospital Repository 01/24/20 Drug soap/B995395028(RXNORM Unknown Unknown [place] 18 Allergy/115594353 ) [facility] (SNOMED CT) Hospital Repository 01/24/20 Drug methylprednisolone Unknown Unknown [place] 18 Allergy/564827760 acetate/G798243128(RXN [facility] (SNOMED CT) ORM) Hospital Repository 01/24/20 Drug omeprazole Unknown Unknown [place] 18 Allergy/992682181 magnesium/W388143768(R [facility] (SNOMED CT) XNORM) Hospital Repository 01/24/20 Drug tolterodine Unknown Unknown [place] 18 Allergy/635794866 tartrate/R796122947(RX [facility] (SNOMED CT) NORM) Hospital Repository 01/24/20 Drug tegaserod hydrogen Unknown Unknown [place] 18 Allergy/749503192 maleate/D490397581(RXN [facility] (SNOMED CT) ORM) Hospital Repository 01/24/20 Drug dipyridamole/S23724625 Unknown Unknown [place] 18 Allergy/495822357 1(RXNORM) [facility] (SNOMED CT) Hospital Repository 01/24/20 Drug tetracaine/Q363404407( Unknown Unknown [place] 18 Allergy/735645925 RXNORM) [facility] (SNOMED CT) Hospital Repository 01/24/20 Drug benzocaine/U568929134( Unknown Unknown [place] 18 Allergy/203883402 RXNORM) [facility] (SNOMED CT) Hospital Repository 01/24/20 Drug butamben/M080340428(RX Unknown Unknown [place] 18 Allergy/682042347 NORM) [facility] (SNOMED CT) Hospital Repository 01/24/20 Drug aspirin/C923380771(RXN Unknown Unknown [place] 18 Allergy/632273244 ORM) [facility] (SNOMED CT) Hospital Repository 01/24/20 Drug sulfamethoxazole/F0060 Unknown Unknown [place] 18 Allergy/443596383 11642(RXNORM) [facility] (SNOMED CT) Hospital Repository 01/24/20 Drug trimethoprim/H24337429 Unknown Unknown [place] 18 Allergy/832730017 3(RXNORM) [facility] (SNOMED CT) Hospital Repository 01/24/20 Drug povidone-iodine/U10667 Unknown Unknown [place] 18 Allergy/624274297 3153(RXNORM) [facility] (SNOMED CT) Hospital Repository 01/24/20 Drug adhesive/Z920298941(RX Unknown Unknown [place] 18 Allergy/987847882 NORM) [facility] (SNOMED CT) Hospital Repository 01/24/20 Drug omeprazole/M692148783( Unknown Unknown [place] 18 Allergy/176632992 RXNORM) [facility] (SNOMED CT) Hospital Repository 01/24/20 Drug metoprolol/O794659819( Unknown Unknown [place] 18 Allergy/437715273 RXNORM) [facility] (SNOMED CT) Hospital Repository 01/24/20 Drug lansoprazole/U91876266 Unknown Unknown [place] 18 Allergy/650439424 6(RXNORM) [facility] (SNOMED CT) Hospital Repository 01/24/20 Drug meclizine/H413884277(R Unknown Unknown [place] 18 Allergy/465112276 XNORM) [facility] (SNOMED CT) Hospital Repository 01/24/20 Drug cortisone/F901780488(R Unknown Unknown [place] 18 Allergy/972419683 XNORM) [facility] (SNOMED CT) Hospital Repository 01/24/20 Drug latex/Y377750298(RXNOR Unknown Unknown [place] 18 Allergy/418728596 M) [facility] (SNOMED CT) Hospital Repository 12/27/19 DRUG MIRABEGRON OTHER: SEE Angelica [place] [facility] INGREDI/[id number] [facility] (SNOMED CT) [place] Repository 03/24/19 DRUG TIZANIDINE OTHER: SEE Angelica [place] [facility] INGREDI/756814346 [facility] (SNOMED CT) [place] Repository 09/12/19 DRUG/389594487(SN [id number] OTHER: SEE [facility] [place] [address] NZOCAINE [facility] [place] Repository 05/27/19 DRUG/294908930(SN ASPIRIN-DIPYRIDAMOLE OTHER: SEE Angelica [place] [address]) [facility] [place] Repository 02/23/20 Miscellaneous OTHER SHORTNESS OF [place] [facility] Allergy/968441807 [facility] (SNOMED CT) [place] Repository 11/04/19 DRUG LATEX RASH [place] [facility] INGREDI/231986489 [facility] (SNOMED CT) [place] Repository 11/05/19 DRUG POVIDONE-IODINE RASH [place] 07 INGREDI/149685453 Clinic [facility] (SNOMED CT) [place] Repository 04/24/19 DRUG METOPROLOL GI UPSET [place] 07 INGREDI/888887095 Clinic [facility] (SNOMED CT) [place] Repository 03/20/19 DRUG/367760784(SN SULFAMETHOXAZOLE-TRIME [place] [address]) THOPRIM [facility] [place] Repository 03/07/20 DRUG CODEINE INTOLERANCE [place] [facility] INGREDI/118581685 Clinic [facility] (SNOMED CT) [place] Repository 03/07/20 DRUG TOLTERODINE TARTRATE INTOLERANCE [place] 06 INGREDI/414139051 Clinic [facility] (SNOMED CT) [place] Repository 03/07/20 DRUG OXYBUTYNIN CHLORIDE INTOLERANCE [place] 06 INGREDI/792021208 Clinic [facility] (SNOMED CT) [place] Repository 03/07/20 DRUG MECLIZINE SWELLING [place] 06 INGREDI/513130645 [facility] (SNOMED CT) [place] Repository 03/07/20 DRUG LANSOPRAZOLE GI UPSET [place] 06 INGREDI/017051477 Clinic [facility] (SNOMED CT) [place] Repository 03/07/20 DRUG TEGASEROD HYDROGEN HIVES [place] 06 INGREDI/528174097 MALEATE [facility] (SNOMED CT) [place] Repository 02/21/20 Miscellaneous OTHER HIVES High [place] 06 Allergy/882009209 [facility] (SNOMED CT) [place] Repository DRUG CORTISONE SHORTNESS OF [place] INGREDI/238718275 Clinic [facility] (SNOMED CT) [place] Repository DRUG OMEPRAZOLE MAGNESIUM DIARRHEA [place] INGREDI/496173910 Clinic Main (SNOMED CT) [place] Repository ENCOUNTERS ENCOUNTERS ADMIT/DISCHARGE ACCOUNT ADMITTING ENCOUNTER LOCATION SOURCE NUMBER CLASS 04/03/2018 [id number] [facility] ing:HPRAD Repository 04/03/2018/04/03/19 [id number] Ambulatory BMSBuilding:B [place] [address] [place] Repository 02/06/2018/02/21/20 [id number] Ambulatory [address] [place] Repository 01/23/2018/01/24/20 [id number] Emergency [address] ing:ED Repository 12/05/2017/12/06/19 [id number] Ambulatory [address] [place] Repository 12/01/2017/12/03/19 [id number] Ambulatory [address] [place] Repository 11/24/2017/11/25/19 [id number] Ambulatory [address] [place] Repository 11/13/[id number] [facility] ing:LAB Repository 10/14/2017/10/21/19 [id number] Ambulatory [place] [facility] [place] Repository 10/07/2017/10/09/19 [id number] Ambulatory [place] [facility] [place] Repository 09/30/2017/10/04/19 [id number] Ambulatory [place] [facility] [place] Repository 09/16/2017/09/23/19 [id number] Ambulatory [place] [facility] [place] Repository 09/11/2017/09/12/19 [id number] Ambulatory [place] [facility] [place] Repository 09/08/2017/09/10/19 [id number] Ambulatory [place] [facility] [place] Repository 09/04/2017/09/06/19 [id number] Ambulatory [place] [facility] [place] Repository 09/02/2017/09/03/19 [id number] Emergency [address] ing:ED Repository 08/28/2017/08/30/19 [id number] Ambulatory [address] [place] Repository 08/07/2017/08/08/19 [id number] Ambulatory [address] ing:OT Repository 07/30/[id number] [facility] ing:LAB Repository 07/29/2017/08/01/19 [id number] Ambulatory [place] [facility] [place] Repository 07/15/2017/07/16/19 [id number] Ambulatory [address] Main [place] Repository 07/03/2017/07/05/19 [id number] Ambulatory [place] [facility] [place] Repository 07/01/2017/07/05/19 [id number] Ambulatory [place] [facility] [place] Repository 07/01/2017/07/02/19 [id number] Ambulatory [place] [facility] [place] Repository 06/10/2017 [id number] Ambulatory [place] [facility] [place] Repository 06/02/2017/06/05/19 [id number] Ambulatory [place] [facility] [place] Repository 05/26/2017/05/27/19 [id number] Ambulatory [place] [facility] [place] Repository 05/26/2017/05/28/19 [id number] Ambulatory [place] [facility] [place] Repository 05/22/2017/05/23/19 [id number] Ambulatory [place] [facility] [place] Repository 04/28/2017/04/28/[id number] Repository PAYERS PAYERS ENCOUNTER GUARANTOR PAYER SUBSCRIBER SOURCE 04/03/2018 CHARMAINE ARVIZU5 Primary KESHIA Menard JOSSELINE STAPPLE Insurance:MEDICARE GEISERDOB: [facility] PART A [facility] [id number] Hospital [address]Rxc: [phone]) Number: Repository [phone] () [id number] Date:2018-04-03 04/03/2018 Secondary KESHIA Tomlin Sailaja Insurance:ANTHEMPolic GEISERDOB: Community y Number: [id number] Hospital [id number] Repository Date:3366-33-08ED [id number] [place] [address] 452[address]MJ: 04/03/2018 Tertiary NOT GIVENUNK Sailaja Insurance:SELF PAY [facility] Number: Effective Repository Date:2018-04-03 04/03/2018 CHARMAINE [id number] Primary KESHIA Menard JOSSELINE STAPPLE Insurance:MEDICARE GEISERDOB: [place] PART A [facility] [id number] Hospital 25215Vgr: [phone]) Number: Repository [phone] () [id number] Date:2018-03-31 04/03/2018 Secondary KESHIA Tomlin Stella Insurance:ANTHEMPolic GEISERDOB: Community y Number: [id number] [facility] Medical [id number] Repository Date:0063-32-18[address], [place] [address]OA: 04/03/2018 Tertiary NOT GIVENUNK Stella Insurance:SELF PAY [facility] Number: Effective Repository Date:2018-04-02 01/23/2018 CHARMAINE Goldsmith [id number] Primary KESHIA Menard JOSSELINE STAPPLE Insurance:MEDICARE GEISERDOB: [place] PART A [address] [id number]: [phone]) Number: Repository [phone] () [id number] Date:2018-01-23 01/23/2018 Secondary KESHIA Tomlin Stella Insurance:ANTHEMPolic GEISERDOB: Community y Number: [id number] Regional Medical [id number] Repository Date:3533-45-80ZE [id number] [place] [address] [id number]: 01/23/2018 Tertiary NOT GIVENUNK Stella Insurance:SELF PAY [facility]: Effective Repository Date:2018-01-23 11/13/2017 Ray A [id number] Primary KESHIA Tomlin Sailaja [address] Insurance:MEDICARE GEISERDOB: [place] PART A [facility] [id number] Hospital [id number]: (330) Number: Repository [phone] () [id number] Date:2017-11-13 11/13/2017 Secondary KESHIA S Sailaja Insurance:ANTHEMPolic GEISERDOB: Community y Number: [id number] Regional Medical [id number] Repository Date:6784-22-96BS [id number] [place] [id number]: 11/13/2017 Tertiary NOT GIVENUNK Stella Insurance:SELF PAY [facility] Number: Effective Repository Date:2017-11-13 09/02/2017 Ray A [id number] Primary KESHIA Menard [address] Insurance:MEDICARE GEISERDOB: [place] PART A [address] [id number]: (330) Number: Repository [phone] () [id number] Date:2017-09-02 09/02/2017 Secondary KESHIA S Sailaja Insurance:ANTHEMPolic GEISERDOB: Community y Number: [id number] Regional Medical [id number] Repository Date:6550-95-78HQ [id number] [place] [address] 11[address]MS: 09/02/2017 Tertiary NOT GIVENUNK [place]ail[place] Insurance:SELF PAY [facility] Number: Effective Repository Date:2017-09-02 08/07/2017 Ray A [id number] Primary KESHIA Tomlin Stella [address] Insurance:MEDICARE GEISERDOB: [place] PART A [facility] [id number] Hospital [address]Izj: (330) Number: Repository [phone] () [id number] Date:2015-02-14 08/07/2017 Secondary KESHIA S Sailaja Insurance:ANTHEMPolic GEISERDOB: Community y Number: [id number] Regional Medical [id number] Repository Date:[id number] [address]LK: 08/07/2017 Tertiary NOT GIVENUNK [place] Insurance:SELF PAY [facility] Number: Effective Repository Date:2017-08-01 07/30/2017 Ray A [id number] Primary KESHIA S Sailaja [address] Insurance:MEDICARE GEISERDOB: [facility] [place] [facility] [id number] Hospital [address]Swi: (330) Number: Repository [phone] () [id number] Date:2017-07-30 07/30/2017 Secondary KESHIA S Stella Insurance:ANTHEMPolic GEISERDOB: Community y Number: [id number] Regional Medical [id number] Repository Date:2462-49-80DO [id number] [place] [address] 45[address]WH: 07/30/2017 Tertiary NOT GIVENUNK Stella Insurance:SELF PAY [facility] Number: Effective Repository Date:2017-07-30
== END ==
PROVIDERS: Family Provider Internal Medicine; PCP Internal Medicine; Referring Provider Physician Assistant; Visit Provider Physician Assistant
DX: M25.561 Pain in right knee (principal); M25.562 Pain in left knee
CPT/HCPCS: 73564

== ENCOUNTER → 2018-04-20 11:55 | Outpatient (CLI) | payer MEDICARE, BC, SELFPAY ==
[2018-04-20 12:55] LABS: Amphetamine Urine VISTA NEGATIVE (<1000 ng/mL); Barbiturate Urine VISTA NEGATIVE (< 200 ng/mL); Benzodiazepine Urine VISTA POSITIVE (< 200 ng/mL); Cocaine Urine VISTA NEGATIVE (< 300 ng/mL); Ecstacy Urine VISTA NEGATIVE (< 500 ng/mL); Methadone Urine VISTA NEGATIVE (< 300 ng/mL); PCP Urine VISTA NEGATIVE (< 25 ng/mL); THC Urine VISTA NEGATIVE (< 50 ng/mL); Vista UDS pH Range 5
== END ==
PROVIDERS: Family Provider Internal Medicine; PCP Internal Medicine; Referring Provider Anesthesiology Pain Medicine; Visit Provider Anesthesiology Pain Medicine
DX: F11.20 Opioid dependence, uncomplicated (principal)
CPT/HCPCS: 80307

== ENCOUNTER → 2018-05-21 11:34 | Outpatient (CLI) | payer MEDICARE, BC, SELFPAY ==
--- NOTE | 2018-05-21 11:35 | RAD_ITS ---
STUDY: X-RAY - LEFT KNEE REASON FOR EXAM: Female, 68 years old. Left knee pain after fall TECHNIQUE: 4 view(s) of the knee. COMPARISON: None. FINDINGS: Normal visualized distal femur. Normal visualized proximal tibia and fibula. Normal proximal tibiofibular articulation. There is moderate degenerative arthrosis of the medial femorotibial compartment with moderate joint space narrowing. There is mild degenerative arthrosis of the lateral femorotibial compartment. There is mild degenerative arthrosis of the patellofemoral articulation. There is no demonstrated joint effusion. The soft tissue structures are unremarkable. RAD/Knee 4 or More Views IMPRESSION: Mild degenerative changes without acute findings Electronically Signed: Savage Calderón DO at 12:05 EST Tel , Service support ,
== END ==
PROVIDERS: Family Provider Internal Medicine; PCP Internal Medicine; Referring Provider Physician Assistant; Visit Provider Physician Assistant
DX: M25.562 Pain in left knee (principal)
CPT/HCPCS: 73564

== ENCOUNTER 2018-06-02 22:49 | Emergency (ER) | payer MEDICARE, BC, SELFPAY ==
[2018-06-02 22:50] VITALS: BP 137/84; PULSE 74; RESP 14; TEMP 36.9; O2SAT 95; BMI 32.4
[2018-06-02 23:40] VITALS: BP 137/79; PULSE 74; RESP 17; O2SAT 98
--- NOTE | 2018-06-02 23:40 | ED.DCSUM_ITS ---
- ER Visit Summary Date of Service: 06/02/18 Chief Complaint: Chills, sore throat, cough History of Present Illness: The patient is a 68 F who presents with flulike symptoms. She became ill about 2 and half hours before presentation. She states she developed chills sore throat bilateral ear pain cough she also complains of some muscle and joint aches. She reports that she has chronic nausea and vomiting before she has a bowel movement that is not a new issue and a chronic recurrent issue. She is very concerned because of her 's multiple health problems at home. She states last time she had the flu her ended up developing pneumonia which concerned her so she presented here for evaluation. Physical Examination: Afebrile vitals are normal Patient is well-appearing Moist mucous membranes Oropharynx clear Tympanic membranes normal Heart regular rate and rhythm Lungs are clear Abdomen soft Alert Test Results: Not indicated Emergency Department Course and Treatment: Patient presents with an influenza- like illness. Given her age and multiple comorbidities at home we will empirically treat. Patient was given first dose of Tamiflu here as well as a prescription for the same and discharged home. She understands to return for new or worsening symptoms. Treatment Plan: [] Disposition: Discharge Impression: Influenza-like illness This note was generated with [employer] dictation software. It may contain incorrect words, spelling, and punctuation that were not noted in review of the chart prior to signing ED Disposition - Plan for ED Patient: Referrals: Miryam Riojas MD [Primary Care Provider] -
--- NOTE | 2018-06-02 23:40 | ED.DEP ---
ED Disposition - Plan for ED Patient: Instructions: ED Flu Prescriptions: Oseltamivir Phosphate [Tamiflu] 75 mg PO BID #9 cap Referrals: Miryam Riojas MD [Primary Care Provider] -
[2018-06-02] MEDS: Oseltamivir Phosphate 75 MG Capsule PO (23:47)
== END 2018-06-03 00:11 | disposition home or self-care (01) ==
LOC: ED 23:58
PROVIDERS: Emergency Provider Emergency Medicine; Family Provider Internal Medicine; PCP Internal Medicine
DX: J11.1 Influenza due to unidentified influenza virus with other respiratory manifestations (principal); I10 Essential (primary) hypertension; Z86.718 Personal history of other venous thrombosis and embolism; Z79.899 Other long term (current) drug therapy
CPT/HCPCS: 99282

== ENCOUNTER → 2018-07-09 | Outpatient (CLI) | payer MEDICARE, BC, SELFPAY ==
[2018-07-09 10:20] VITALS: BMI 32.4
--- NOTE | 2018-07-09 10:57 | RAD_ITS ---
STUDY: X-RAY - LUMBAR SPINE REASON FOR EXAM: Female, 68 years old. Low back pain TECHNIQUE: 5 view(s) of the lumbar spine were obtained. COMPARISON: 2012 FINDINGS: There is been previous pedicle screw fusion surgery at L5 and S1. Hardware is intact and free of complication. Normal lumbar lordosis. There is a dextroscoliosis of the lumbar spine. There is a normal alignment of the vertebrae in the lateral view. There is multilevel endplate spondylosis of the lumbar vertebrae. There is multi-level degenerative disc disease with multi-level disc space narrowing. There is no demonstrated fracture. The soft tissue structures are unremarkable. RAD/L/S Spine Min 4 Views IMPRESSION: Degenerative and postsurgical changes of the spine, as detailed above. No acute findings Electronically Signed: Yash Shen MD at 13:48 EDT , Service support ,
== END | disposition home or self-care (01) ==
LOC: HPRAD 10:56
PROVIDERS: Family Provider Internal Medicine; PCP Internal Medicine; Referring Provider Orthopaedic Surgery; Visit Provider Orthopaedic Surgery
DX: M54.10 Radiculopathy, site unspecified (principal)
CPT/HCPCS: 72110

== ENCOUNTER 2018-10-19 13:30 | Outpatient (RCR) | payer MEDICARE, BC, SELFPAY ==
[2018-07-09 10:20] VITALS: BMI 32.4
--- NOTE | 2018-09-07 13:23 | HP.PTEVAL_ITS ---
Patient's Visit Information EILEEN CHRISTINE is a 68 year old F referred to Physical Therapy by Lupe Singleton DC with a diagnosis of DDD LUMBAR ,POST SURGICAL (2014). Date of Evaluation: 09/07/18 Physical Therapist: Haile Segovia, PT, Cert MDT, OCS - Visit Plan Frequency: 2x /Week Duration: 4 Weeks Plan: Patient has h/o lumbar surgery 2014. PT INTERVENTIONS GRADED DLS- ABD/BACK,POSTURAL EX'S,LE STRENGTHENING,US - Subjective Findings: This 68 y/o female presents to physical therapy low back pain . Patient has h/o 2015 lumbar surgery . In the past ,patient has had prior PT and Aquatic in past. Patient has lumbar symmtrical lumbar pain descibed as sharp/jabbing pain and occasionally spasms. Pain is intermttant .Aggravated factors standing, walking, bending ,lifting affects job demands. Patient symptoms affect sleeping in hospital bed . Patient uses cane as needed use rollator for extended distances. Alleviating factors Narco,telyelonal 500 . Patient has had pain injections in past seen DR Clement. Bowel/bladder -. Coughing/seezing-. Patient affects QOL and ADL's. Patient works at [employer] SOCIAL: - Pain Bilateral Back Pain Intensity (Out of 10): 5 Pain Intensity Range: 10 - Objective POSTURE: mild foward posture. GAIT: ambulates with anatalgic gait mild foward posture. NEURO: denies parathesia/tingling,reflexe 2 /3. ALIGN: assymitries. PALAPTION: tender L-S ,ERCTOR SPINALS. LUMBAR ROM: flexion min loss,extension mod loss,side glide mod loss. MMT: quads/hams 4-/5,hip flexion 3+/5,abd 3+/5,ankle 4/5. FLEXABLITY: hams min loss - Special Tests L/S Slump test left side: Negative L/S Slump test right side: Negative L/S Left Straight Leg Raise: Negative L/S Right Straight Leg Raise: Negative - Goals Goal 1:: Independant with HEP Goal Time Frame: 4-6 Weeks Goal 2:: Decrease pain lumbar by 50% or greater to improve function. Goal Time Frame: 4-6 Weeks Goal 3:: Patient to improve lumbar ROM for function of recovey Goal Time Frame: 4-6 Weeks Goal 4:: Patient to increase strength BLE to 4/5 to improve function. Goal Time Frame: 4-6 Weeks Goal 5:: Patient to improve back owestrey score by 5 points to improve QOL. Goal Time Frame: 4-6 Weeks - Rehabilitation Potential Physical Therapy Diagnosis: This patient has multiple complexity issues with h/o back lumbar surgery with pain ,decrease strength,ROM ,gait and impairs function with ADL'S. Rehabilitation Potential: Good - Anticipated Interventions Patient/Client Instruction: Educate patient on: Condition, Plan of Care For the Purpose of:: To decrease pain, To increase ROM, To improve muscle performance and motor function, To improve ability to perform ADL's, To increase tolerance to activity/condition/position, To improve ability of physical actions for home/community/work/leisure, To improve health of tissue, To decrease soft tissue restriction, To increase flexibility/ROM, To improve ability to perform tasks related to life management Therapeutic Exercise to Include: Strength training, Body mechanics, Postural training, Flexibilty training, Dynamic Lumbar Stabilization For the Purpose of:: To decrease pain, To improve muscle performance and motor function, To improve ability to perform ADL's, To increase tolerance to activity/condition/position, To improve ability of physical actions for home/community/work/leisure, To improve health of tissue, To decrease soft tissue restriction, To increase flexibility/ROM, To improve ability to perform tasks related to life management Thank you for the opportunity to evaluate your patient. For Medicare and Medicare HMO plans, please review the plan of care and approve it. It will need to be FAXED BACK to us at [phone] for Medicare purposes. For Medicare only, by signing this I certify the plan of care. Please let me know if there are questions or concerns regarding this plan of care. Physician Signature: Date:
--- NOTE | 2018-10-19 14:07 | HP.PTDCSUM ---
HP - PT D/C Summary It has been my pleasure to treat EILEEN CHRISTINE under orders from Lupe Singleton DC, for the diagnosis of DDD LUMBAR ,POST SURGICAL (2014) for a total of 8 visit(s). Discharge Date: 10/19/18 Please see the following information for a summary of their discharge status. - Subjective Subjective: Doing ex's at home .. overall not progressing as fast. Job demands affects progrees and due to pain. Plan to see DR Singleton . - Pain Bilateral Back Pain Intensity (Out of 10): 7 bilat neck Pain Intensity (Out of 10): 0 - Overall Improvement % Improvement: 30 - Objective Objective/Function: POSTURE: mild foward posture. GAIT: ambulates with qc rreciprocal pattern. MMT: quads/hasm4/5,hip flexion 4-/5,ankle 4/5. LUMBAR ROM: flexion mod loss,extension mod /severe loss. FLEXABLITY: hams minm tight - Goals Goal 1:: Independant with HEP Goal Progress: Goal Met Goal 2:: Decrease pain lumbar by 50% or greater to improve function. Goal Progress: Goal Met Goal 3:: Patient to improve lumbar ROM for function of recovey Goal Progress: Goal Met Goal 4:: Patient to increase strength BLE to 4/5 to improve function. Goal Progress: Goal Met Goal 5:: Patient to improve back owestrey score by 5 points to improve QOL. Goal Progress: Goal Met - Plan Plan: D/C - D/C Information Discharge Comments: HEP If there are questions or concerns regarding this patient's physical therapy, please feel free to call me at [phone]. Thank you for the referral of this patient. Sincerely, Haile Segovia, PT, Cert MDT, OCS
== END 2018-10-19 19:00 | disposition home or self-care (01) ==
LOC: PT 13:30
PROVIDERS: Family Provider Internal Medicine; PCP Internal Medicine; Referring Provider Chiropractor; Visit Provider Chiropractor
DX: M51.36 Other intervertebral disc degeneration, lumbar region (principal)
CPT/HCPCS: 97035; 97110; 97162; 97530

== ENCOUNTER 2019-02-08 23:12 | Emergency (ER) | payer MEDICARE, BC, SELFPAY ==
[2018-07-09 10:20] VITALS: BMI 32.4
[2019-02-08 23:13] VITALS: BP 169/78; PULSE 73; RESP 16; TEMP 37; O2SAT 95; BMI 33.9
--- NOTE | 2019-02-08 23:18 | RAD_ITS ---
HISTORY: PT STATES SHE WAS DRINKING EGGNOG AT 2000 AND DEVELOPED INDIGESTION/ NAUSEA THEN CP. EXAMINATION/TECHNIQUE: XR Chest 1 View: Portable upright COMPARISON: None FINDINGS: Cardiac telemetry leads in place. Limited inspiration with left basilar mild subsegmental atelectasis. Normal heart size. No vascular congestion, pleural effusion, or acute pulmonary infiltration. Probable small hiatal hernia. No pneumothorax. RAD/Chest 1 View (Portable) IMPRESSION: 1. Limited inspiration with left basilar mild subsegmental atelectasis. 2. No evidence of CHF or pneumonia. 3. Probable small hiatal hernia. at 7986 Reported and signed by: Dillon Carter MD Electronically Signed: Dillon Carter, at 23:45 EST Tel , Service support ,
--- NOTE | 2019-02-08 23:18 | EKG12_ITS ---
Test Reason : CP Blood Pressure : / mmHG Vent. Rate : 071 BPM Atrial Rate : 071 BPM P-R Int : 172 ms QRS Dur : 074 ms QT Int : 410 ms P-R-T Axes : 043 -55 008 degrees QTc Int : 445 ms Normal sinus rhythm Left axis deviation Pulmonary disease pattern Inferior infarct (cited on or before 02-SEP-2017) Abnormal ECG Confirmed by DOUG VARGAS, ESSENCE ([id number]), tape editor DEBBIE FAIR ([id number]) on 02/10/2019 10:48:28 AM Referred By: DR RADFORD Confirmed By:ESSENCE CAMACHO MD
[2019-02-08] MEDS: Morphine 4 MG/ML Syringe IV (23:25)
[2019-02-08] MEDS: Ondansetron 4 MG/2 ML Vial IV (23:25)
[2019-02-08 23:28] LABS: Absolute Lymphocyte Count 1.68 X10^3/uL (0.83-4.51); Absolute Neutrophil Count 6.4 X10^3/uL (2.0-7.7); Basophil# 0.06 X10^3/uL; Basophil% 0.6 % (0-1); Eosinophil# 0.31 X10^3/uL; Eosinophils% 3.3 % (0-5); Hematocrit 41.7 % (37-47); Hemoglobin 13.8 g/dL (12.0-15.0); Lymphocyte # 1.68 X10^3/ul (4.0); Lymphocyte % 17.9 % (19-41); Mean Corp Hgb Conc 33.1 g/dL (32-36); Mean Corpuscular Volume 93.7 fL (81-99); Mean Platelet Vol. 9.5 fl (6.2-12.0); Monocyte# 0.93 X10^3/uL; Monocyte% 9.9 % (0-10); NRBC Flagged by Analyzer 0 % (0-5); Platelet Count 303 K/mm3 (150-450); RBC Distribution Width CV 12.1 % (11.6-14.6); Red Blood Count 4.45 M/mm3 (4.2-5.4); White Blood Count 9.4 K/mm3 (4.4-11.0)
--- NOTE | 2019-02-08 23:35 | ED.DCSUM_ITS ---
History of Present Illness Chief Complaint: Chest Pain Informant: Patient Onset: Today Context: Sudden Onset Timing: Continuous Current Severity: Moderate Maximum Severity: Moderate Narrative: The patient is a 68-year-old female with history of hypertension, hyperlipidemia, irritable bowel who presents to the emergency department with chest pain, nausea, and vomiting. The patient states that about 8 PM tonight, she had eggnog. Shortly thereafter, she began to have a burning sensation in her chest. She states vomited. Shortly thereafter, she states that she was having burning pain in her esophagus. She denies feeling short of breath. The pain does not radiate. It is worse with vomiting. She denies any other systemic symptoms. The patient has no history of prior heart attack or stenting. Prior similar symptoms: No Recent Illness/Hospitalization: No Past Medical History - Allergies and Home Meds Allergies/Adverse Reactions: Allergies adhesive Allergy (Verified 02/08/19 23:24) Unknown aspirin [From Aggrenox] Allergy (Verified 02/08/19 23:24) Unknown benzocaine [From Cetacaine] Allergy (Verified 02/08/19 23:24) Unknown butamben [From Cetacaine] Allergy (Verified 02/08/19 23:24) Unknown cortisone [Cortisone] Allergy (Verified 02/08/19 23:24) Unknown dipyridamole [From Aggrenox] Allergy (Verified 02/08/19 23:24) Unknown lansoprazole [From Prevacid] Allergy (Verified 02/08/19 23:24) Unknown latex Allergy (Verified 02/08/19 23:24) Unknown meclizine Allergy (Verified 02/08/19 23:24) Unknown methylprednisolone acetate [From Depo-Medrol] Allergy (Verified 02/08/19 23:24) Unknown metoprolol Allergy (Verified 02/08/19 23:24) Unknown omeprazole [From Prilosec] Allergy (Verified 02/08/19 23:24) Unknown omeprazole magnesium [From Prilosec] Allergy (Verified 02/08/19 23:24) Unknown oxybutynin chloride [From Ditropan] Allergy (Verified 02/08/19 23:24) Unknown povidone-iodine [From Betadine] Allergy (Verified 02/08/19 23:24) Unknown soap [From Betadine] Allergy (Verified 02/08/19 23:24) Unknown sulfamethoxazole [From Bactrim] Allergy (Verified 02/08/19 23:24) Unknown tegaserod [From Zelnorm] Allergy (Verified 02/08/19 23:24) Hives tegaserod hydrogen maleate [From Zelnorm] Allergy (Verified 02/08/19 23:24) Unknown tetracaine [From Cetacaine] Allergy (Verified 02/08/19 23:24) Unknown tolterodine tartrate [From Detrol] Allergy (Verified 02/08/19 23:24) Unknown trimethoprim [From Bactrim] Allergy (Verified 02/08/19 23:24) Unknown codeine Adverse Reaction (Verified 02/08/19 23:24) Unknown mirabegron [From Myrbetriq] Adverse Reaction (Verified 02/08/19 23:24) Other tizanidine Adverse Reaction (Verified 02/08/19 23:24) Other DEPOMEDROL Allergy (Uncoded 02/08/19 23:24) Angioedema PAPER TAPE Adverse Reaction (Uncoded 02/08/19 23:24) Rash Primary Care Physician: Davon Infante MD [STAFF PHYSICIAN] - Prior records reviewed: Yes Past Medical History: - - Peripheral vascular disease, coronary artery disease, hypertension, hyperlipidemia, irritable bowel Surgical History: noncontributory Smoking Status: Never smoker Review of Systems General: Denies: Chills, Fever, Sweats Eyes: Denies: Visual changes - bilaterally, Diplopia ENT: Denies: Rhinorrhea, Sore throat Cardiovascular: Reports: Chest pain. Denies: Palpitations Respiratory: Denies: Dyspnea, Cough, Dyspnea on exertion Gastrointestinal: Reports: Nausea, Vomiting. Denies: Abdominal pain, Diarrhea, Melena, Hematochezia Genitourinary: Denies: Dysuria, Hematuria, Frequency Musculoskeletal: Denies: Back pain, Extremity Pain Skin: Denies: Rash, Wounds Neurological: Denies: Headache, Weakness, Numbness Physical Exam Vital Signs/Narrative: Vital Signs Temp Pulse Resp BP Pulse Ox 02/08/19 23:13 98.6 F 73 16 169/78 H 95 Inital Vital Signs reviewed: Yes General: Well nourished, Well developed, No Acute Distress Head: Normocephalic, Atraumatic Eyes: Perrl, EOMI ENT: Moist mucous membranes, No rhinorrhea Neck: Supple, Nontender Cardiovascular: Regular rate, Regular rhythm, No murmurs Respiratory: No distress, CTA bilaterally, Chest nontender Abdomen: Soft, Nontender, Nondistended, Normal bowel sounds Back: Nontender, Normal Inspection Extremities: Nontender, No edema Skin: Normal color, No rash Neurological: Alert, Oriented x3, Cranial nerves II-XII grossly intact, Normal Strength, Normal Sensation Psychological: Normal affect, Normal Mood Diagnostic/Tx/Re-eval Chest X-Ray - ED: 2 View, Read by ED Physician, Normal, Heart, Lungs, Mediastinum Clinical Impression(s) from Imaging Studies Chest X-Ray 02/08/19 23:18 IMPRESSION: 1. Limited inspiration with left basilar mild subsegmental atelectasis. 2. No evidence of CHF or pneumonia. 3. Probable small hiatal hernia. at 2346 Reported and signed by: Dillon Carter MD Electronically Signed: Dillon Carter, at 23:45 EST Tel , Service support , Abdomen/Pelvis CT 02/09/19 23:53 IMPRESSION: 1. Small dependent gallstones versus incomplete calcification of the posterior gallbladder wall. Pericholecystic fluid is present in keeping with acute cholecystitis. Suggest further correlation with gallbladder ultrasound. No biliary dilatation. 2. Prior surgery GE junction with residual small hiatal hernia. 3. Fatty liver and additional chronic changes, as above. Individualized dose optimization techniques were used for this CT. at 0103 Reported and signed by: Dillon Carter MD Electronically Signed: Dillon Carter, at 1:02 EST Tel , Service support , Abnormal Lab Results 02/08/19 02/08/19 23:20 23:20 WBC 9.4 RBC 4.45 Hgb 13.8 Hct 41.7 MCV 93.7 MCH 31.0 MCHC 33.1 RDW Std Deviation 42.0 RDW Coeff of Ronnie 12.1 Plt Count 303 MPV 9.5 Immature Gran % (Auto) 0.300 Neut % (Auto) 68.0 Lymph % (Auto) 17.9 L [place] % (Auto) 9.9 Eos % (Auto) 3.3 Baso % (Auto) 0.6 Absolute Neuts (auto) 6.4 Absolute Lymphs (auto) 1.68 Nucleated RBC % 0 Sodium 143 Potassium 4.3 Chloride 109 H Carbon Dioxide 29.0 Anion Gap 5 BUN 15 Creatinine 0.77 Estim Creat Clear Calc 46.50 Est GFR (MDRD) Af Amer 95 Est GFR (MDRD) Non-Af 79 BUN/Creatinine Ratio 19.4 Glucose 163 H Calcium 9.1 Total Bilirubin 0.50 AST 137 H ALT 94 H Alkaline Phosphatase 103 Troponin I < 0.015 Total Protein 7.5 Albumin 3.2 Globulin 4.3 H Albumin/Globulin Ratio 0.7 L Lipase 144 - Rhythm Strip Rhythm Strip: Sinus Rhythm Rate: 80 Ectopy: None - EKG Initial EKG Interpretation: Sinus Rhythm, No Acute Injury Pattern, Non-Specific ST Changes Prior: Unchanged - Medical Decision Making The patient presents with midepigastric abdominal pain into her chest. It was associated with nausea and vomiting. She did not have the pain until after she started to vomit. She has no right upper quadrant pain. Her EKG was obtained which showed sinus rhythm without acute ischemia. Cardiac enzymes are normal. Her labs do show minimal elevation in the liver functions, but were otherwise unremarkable. Chest x-ray shows no evidence of volume overload. The patient was concerned about an obstruction as she has had multiple surgical procedures on the stomach. CT was obtained. There is no evidence of obstruction or perforation. There was a distended gallbladder with questionable pericholecystic fluid. I did a bedside ultrasound. The gallbladder wall was 2 mm. There was some posterior shadowing consistent with stones, but no pericholecystic fluid. She had a negative Caldeorn sign. My suspicion is that the patient's pain is multifactorial. I do feel she likely had biliary colic after eating eggnog, began to vomit that was increasing pain in her esophageal area which she is had multiple procedures on, and then began to have chest pain. At this point, her work-up was unremarkable. She is pain-free. Her nausea is controlled. I am going to give her outpatient surgical follow-up to reevaluate her gallbladder. She was counseled on foods to avoid. She was also counseled that if her pain worsens, she develops a fever, or things change to return. She is comfortable with this plan of care. Impression 1. Nausea vomiting 2. Biliary colic 3. Gastritis ED Disposition - Plan for ED Patient: Instructions: BILIARY COLIC with Gallstone (Confirmed) Prescriptions: Ondansetron [Zofran Odt] 4 mg PO Q8H PRN PRN #10 tab PRN Reason: Nausea Prescription Printed Referrals: Davon Infante MD [STAFF PHYSICIAN] -
[2019-02-08] MEDS: 0.9% Normal Saline 1,000 ML 150 ML IV (23:39)
[2019-02-08 23:40] VITALS: O2SAT 96
[2019-02-08 23:52] LABS: ALB/GLOB Ratio 0.7 RATIO (0.9-2.4); AST(SGOT) 137 U/L (15-37); Alanine Aminotransfer ALT/SGPT 94 U/L (13-56); Albumin, Serum 3.2 g/dL (3.2-5.0); Alkaline Phosphatase 103 U/L (45-117); Anion Gap 5 (5-15); BUN 15 mg/dL (7-18); BUN/Creat Ratio 19.4 RATIO (10-20); Calcium,Total 9.1 mg/dL (8.5-10.1); Chloride 109 mmol/L (98-107); Creatinine, Serum 0.77 mg/dL (0.55-1.02); EST Glomerular Filtration Rate 79 mL/min (>60); Est Glom Filt Rate - Afr Amer 95 mL/min (>60); Globulin 4.3 g/dL (2.2-4.2); Glucose 163 mg/dL (74-106); Lipase 144 U/L (73-393); Potassium 4.3 mmol/L (3.5-5.1); Protein, Total 7.5 g/dL (6.4-8.2); Sodium Level 143 mmol/L (136-145)
[2019-02-09 00:12] VITALS: BP 148/77; PULSE 68; RESP 13; O2SAT 97
[2019-02-09] MEDS: Famotidine 200 MG/20 ML MDV 20 MG in 0.9% Normal Saline (Pres. free 8 ML 300 MG IV (00:42)
[2019-02-09 01:00] VITALS: BP 160/68; PULSE 76; RESP 17; O2SAT 17
[2019-02-09 01:19] VITALS: BP 146/80; PULSE 74; RESP 14; O2SAT 96
--- NOTE | 2019-02-09 23:53 | CT_ITS ---
HISTORY: NAUSEA AND CHEST PAIN,? BOWEL OBSTRUCTIONHX:HTN,HYPOTHYROID,SKIN CANCERSURGERY:BACK,ESOPHAGUS AND HIATAL HERNIA REPAIR EXAMINATION: CT Abdomen And Pelvis W/ Contrast Injection TECHNIQUE: Helically acquired images were obtained of the abdomen and pelvis following IV contrast. A radiation dose optimization technique was used for this scan. IV Contrast dosage and agent: 100mL Isovue-300 IV Oral contrast: None. COMPARISON: None FINDINGS: Lower thorax: Postsurgical change at the GE junction with residual small hiatal hernia. The lung bases show no infiltrate or effusion. Gallbladder is well distended measuring up to 4.2 cm in the short axis and shows tiny dependent gallstones versus incomplete, dislocation of the posterior gallbladder wall. Pericholecystic fluid is present in keeping with cholecystitis. No biliary dilatation. Fatty liver which shows inferior elongation of the right hepatic lobe compatible with developmental Yassine's lobe. No focal hepatic lesion. Normal spleen and pancreas. No pancreatic ductal dilatation. Both kidneys are normal in position. Bilateral renal opacification without evidence of hydronephrosis or suspicious renal lesion. Bilateral benign-appearing cortical and parapelvic renal cysts, more numerous on the right. The adrenal glands are not enlarged. Abdominal aorta is normal in caliber. No ascites or retroperitoneal lymph node enlargement. GI tract: No obstruction. Moderate colonic stool. Normal appendix. Pelvis: Anteverted uterus which is normal in size. Small calcified fibroid of the uterine fundus to the left of midline. Normal urinary bladder. No free fluid or lymph node enlargement. Bones: No acute osseous abnormality. Laminectomy with L5-S1 surgical fusion utilizing pedicle screws and connecting rods. Interbody fusion of the same level. Ventral soft tissues: Small fat-containing umbilical hernia. CT/Abdomen/Pelvis W IV Cont ONLY IMPRESSION: 1. Small dependent gallstones versus incomplete calcification of the posterior gallbladder wall. Pericholecystic fluid is present in keeping with acute cholecystitis. Suggest further correlation with gallbladder ultrasound. No biliary dilatation. 2. Prior surgery GE junction with residual small hiatal hernia. 3. Fatty liver and additional chronic changes, as above. Individualized dose optimization techniques were used for this CT. at 0103 Reported and signed by: Dillon Carter MD Electronically Signed: Dillon Carter, at 1:02 EST Tel , Service support ,
== END 2019-02-09 01:31 | disposition home or self-care (01) ==
LOC: ED 23:41
PROVIDERS: Emergency Provider Emergency Medicine; Family Provider Internal Medicine; PCP Internal Medicine
DX: K29.70 Gastritis, unspecified, without bleeding (principal); R11.2 Nausea with vomiting, unspecified; K80.50 Calculus of bile duct without cholangitis or cholecystitis without obstruction; I73.9 Peripheral vascular disease, unspecified; I25.10 Atherosclerotic heart disease of native coronary artery without angina pectoris; I10 Essential (primary) hypertension; K58.9 Irritable bowel syndrome, unspecified
CPT/HCPCS: 71045; 74177; 80053; 83690; 84484; 85025; 93005; 96361; 96374; 96375; J7030; Q9967; A4216; J2405; J3490

== ENCOUNTER 2019-02-09 15:43 | Inpatient (IN) | payer MEDICARE, BC, SELFPAY ==
[2019-02-09 15:33] VITALS: BMI 33.9
[2019-02-09 15:44] VITALS: BP 123/60; PULSE 79; RESP 18; TEMP 36.8; O2SAT 97; BMI 33.3
--- NOTE | 2019-02-09 15:57 | US_ITS ---
STUDY: ABDOMINAL ULTRASOUND - RIGHT UPPER QUADRANT REASON FOR VISIT: Female, 68 years old right upper quadrant pain. TECHNIQUE: Ultrasound evaluation of the right upper quadrant was performed with real-time and static acosta-scale imaging. TECHNICAL QUALITY: Adequate. COMPARISON: CT. FINDINGS: Liver: The liver measures 16.5 cm. There is normal echogenicity of the liver. The bile ducts are within normal limits. There is hepatic color flow. The direction of portal flow is hepatopetal. There is no demonstrated mass lesion. Gallbladder: Normal distended gallbladder. The gallbladder wall measures 3 mm. There is a negative sonographic Calderon's sign. There is no pericholecystic fluid. There are multiple echogenic structures within the gallbladder, consistent with multiple gallstones. Common Bile Duct (C.B.D.): The common bile duct measures 7 mm. Pancreas: Normal size of the head, body and tail of the pancreas. There is normal echogenicity of the pancreas. There is no demonstrated pancreatic mass or cyst. Right Kidney: Normal size of the right kidney. The right kidney measures 10.6 cm. Normal renal cortex. The right cortex measures 1.2 cm. There are 2.2 and 1.8 cm cysts. There is no right hydronephrosis. US/Gallbladder IMPRESSION: Multiple gallstones. Gallbladder wall thickening. Mild biliary dilatation. Electronically Signed: Deepak Mendez MD at 17:13 EST , Service support ,
--- NOTE | 2019-02-09 15:58 | EKG12_ITS ---
Test Reason : CP Blood Pressure : / mmHG Vent. Rate : 081 BPM Atrial Rate : 081 BPM P-R Int : 168 ms QRS Dur : 070 ms QT Int : 452 ms P-R-T Axes : 036 -35 012 degrees QTc Int : 525 ms Normal sinus rhythm Possible Left atrial enlargement Left axis deviation Pulmonary disease pattern Inferior infarct , age undetermined Prolonged QT Abnormal ECG Confirmed by DIANA LORENZANA ([id number]), makeup editor CARTER HADDAD ([id number]) on 02/12/2019 11:26:44 AM Referred By: ALYX Confirmed By:DIANA LORENZANA
--- NOTE | 2019-02-09 16:04 | ED.DCSUM_ITS ---
History of Present Illness Chief Complaint: Chest Pain Narrative: Patient presenting from the general surgery office secondary to abdominal pain chest pain and nausea and vomiting. Patient has a complicated surgical history and that she has had esophageal dilations at [facility] in the past. Patient was seen in the emergency department yesterday due to abdominal pain and chest pain that seem to be clearly associated with every time that she eats. Patient states that pretty much anytime she eats she will develop nausea vomiting abdominal pain and chest pain. Her abdominal pain is not really localizing, is diffuse and crampy. Chest pain is nonexertional and is not associated with any sort of shortness of breath. She had a work-up done yesterday that included a CT of the abdomen and pelvis with IV contrast that showed gallstones and minimal inflammation around the gallbladder. A bedside ultrasound showed no evidence of sonographic Calderon sign, and a normal gallbladder wall thickness. Patient was added to the general surgery office today and was noted to be acosta and hypotensive although she has a history of chronic orthostatic hypotension. Surgeon felt that the patient had some left upper quadrant tenderness, but would still like the patient to receive her right upper quadrant ultrasound. He was recommending that the patient potentially may require admission for IV hydration as well as a upper GI series with small bowel follow-through due to concern for the possibility of bowel motility issues. Patient denies any fevers at this time. She does state that she is having some constipation. Past Medical History - Allergies and Home Meds Allergies/Adverse Reactions: Allergies adhesive Allergy (Verified 02/09/19 15:25) Unknown aspirin [From Aggrenox] Allergy (Verified 02/09/19 15:25) Unknown benzocaine [From Cetacaine] Allergy (Verified 02/09/19 15:25) Unknown butamben [From Cetacaine] Allergy (Verified 02/09/19 15:25) Unknown cortisone [Cortisone] Allergy (Verified 02/09/19 15:25) Unknown dipyridamole [From Aggrenox] Allergy (Verified 02/09/19 15:25) Unknown lansoprazole [From Prevacid] Allergy (Verified 02/09/19 15:25) Unknown latex Allergy (Verified 02/09/19 15:25) Unknown meclizine Allergy (Verified 02/09/19 15:25) Unknown methylprednisolone acetate [From Depo-Medrol] Allergy (Verified 02/09/19 15:25) Unknown metoprolol Allergy (Verified 02/09/19 15:25) Unknown omeprazole [From Prilosec] Allergy (Verified 02/09/19 15:25) Unknown omeprazole magnesium [From Prilosec] Allergy (Verified 02/09/19 15:25) Unknown oxybutynin chloride [From Ditropan] Allergy (Verified 02/09/19 15:25) Unknown povidone-iodine [From Betadine] Allergy (Verified 02/09/19 15:25) Unknown soap [From Betadine] Allergy (Verified 02/09/19 15:25) Unknown sulfamethoxazole [From Bactrim] Allergy (Verified 02/09/19 15:25) Unknown tegaserod [From Zelnorm] Allergy (Verified 02/09/19 15:25) Hives tegaserod hydrogen maleate [From Zelnorm] Allergy (Verified 02/09/19 15:25) Unknown tetracaine [From Cetacaine] Allergy (Verified 02/09/19 15:25) Unknown tolterodine tartrate [From Detrol] Allergy (Verified 02/09/19 15:25) Unknown trimethoprim [From Bactrim] Allergy (Verified 02/09/19 15:25) Unknown codeine Adverse Reaction (Verified 02/09/19 15:25) Unknown mirabegron [From Myrbetriq] Adverse Reaction (Verified 02/09/19 15:25) Other tizanidine Adverse Reaction (Verified 02/09/19 15:25) Other DEPOMEDROL Allergy (Uncoded 02/09/19 15:25) Angioedema PAPER TAPE Adverse Reaction (Uncoded 02/09/19 15:25) Rash Primary Care Physician: Miryam Riojas MD [Primary Care Provider] - Surgical History: noncontributory Smoking Status: Never smoker Review of Systems All systems negative except as indicated General: Reports: Malaise. Denies: Fever Eyes: Denies: Visual changes - bilaterally, Diplopia ENT: Denies: Rhinorrhea, Sore throat Cardiovascular: Reports: Chest pain Respiratory: Denies: Dyspnea, Cough Gastrointestinal: Reports: Abdominal pain, Nausea, Vomiting Genitourinary: Denies: Dysuria, Hematuria Musculoskeletal: Denies: Myalgias Skin: Denies: Rash, Wounds Neurological: Denies: Headache, Weakness, Numbness Psych: Denies: Depression Endocrine: Denies: Polyuria, Polydipsia Hematologic: Denies: Easy bleeding Allergy: Denies: Swelling of the mouth Physical Exam Vital Signs/Narrative: Vital Signs Temp Pulse Resp BP Pulse Ox 02/09/19 15:44 98.3 F 79 18 123/60 H 97 Inital Vital Signs reviewed: Yes General: Well nourished, Well developed, No Acute Distress Head: Normocephalic, Atraumatic Eyes: Perrl, EOMI. Negative for: Pale conjunctiva, Scleral icterus ENT: Moist mucous membranes, No rhinorrhea Neck: Supple, Nontender Cardiovascular: Regular rate, Regular rhythm, No murmurs, - - 2+ radial pulses bilaterally symmetric Respiratory: No distress, CTA bilaterally, Chest nontender Abdomen: Soft, Tender - Periumbilical, no guarding or rebound. No localization to the right upper quadrant. No evidence of diffuse rigidity. Back: Nontender, Normal Inspection Extremities: Nontender, No edema Skin: Normal color, No rash Neurological: Alert, Oriented x3, Cranial nerves II-XII grossly intact, Normal Strength, Normal Sensation Psychological: Normal affect, Normal Mood Diagnostic/Tx/Re-eval - EKG Initial EKG Interpretation: - - Sinus rhythm of 81 with left axis deviation is noted. Inferior Q waves that are old. QTc somewhat prolonged at 525. No evidence of acute ischemia or arrhythmia. - Medical Decision Making Patient presented secondary to abdominal pain. EKG demonstrates no signs of ischemia. IV was established laboratory studies were obtained. Patient was found to have a new onset of a leukocytosis of 17 and pancreatitis with lipase of 15,000. Patient had a ultrasound performed which showed gallstones, no gallbladder wall thickening, minimal amount of pericholecystic fluid, and a c ommon bile duct that was on the upper limits of normal for the patient's age. I had a discussion with the patient's surgeon who states that there is some evidence that early cholecystectomy in these patients can be of benefit. He agrees to see the patient in consultation. Patient will be admitted on the hospitalist. ED Disposition - Plan for ED Patient: Disposition: Acute Care Hospital [facility] Diagnosis: Pancreatitis, Gallstones
[2019-02-09] MEDS: 0.9% Normal Saline 1,000 ML 1000 ML IV (16:06)
[2019-02-09 16:26] LABS: Absolute Lymphocyte Count 1.38 X10^3/uL (0.83-4.51); Absolute Neutrophil Count 14.4 X10^3/uL (2.0-7.7); Basophil# 0.05 X10^3/uL; Basophil% 0.3 % (0-1); Eosinophil# 0.21 X10^3/uL; Eosinophils% 1.2 % (0-5); Hematocrit 41.1 % (37-47); Hemoglobin 13.5 g/dL (12.0-15.0); Lymphocyte # 1.38 X10^3/ul (4.0); Lymphocyte % 7.9 % (19-41); Mean Corp Hgb Conc 32.8 g/dL (32-36); Mean Corpuscular Volume 94.3 fL (81-99); Mean Platelet Vol. 9.5 fl (6.2-12.0); Monocyte# 1.36 X10^3/uL; Monocyte% 7.8 % (0-10); NRBC Flagged by Analyzer 0 % (0-5); Neutrophil % 82.3 % (47-70); Platelet Count 316 K/mm3 (150-450); RBC Distribution Width CV 12.3 % (11.6-14.6); RBC Distribution Width SD 42.5 fl (35.1-43.9); Red Blood Count 4.36 M/mm3 (4.2-5.4); White Blood Count 17.5 K/mm3 (4.4-11.0)
[2019-02-09 16:44] LABS: ALB/GLOB Ratio 0.9 RATIO (0.9-2.4); AST(SGOT) 109 U/L (15-37); Alanine Aminotransfer ALT/SGPT 152 U/L (13-56); Albumin, Serum 3.3 g/dL (3.2-5.0); Alkaline Phosphatase 107 U/L (45-117); Anion Gap 7 (5-15); BUN 15 mg/dL (7-18); BUN/Creat Ratio 17.9 RATIO (10-20); Calcium,Total 9.1 mg/dL (8.5-10.1); Chloride 107 mmol/L (98-107); Creatinine, Serum 0.84 mg/dL (0.55-1.02); EST Glomerular Filtration Rate 72 mL/min (>60); Est Glom Filt Rate - Afr Amer 87 mL/min (>60); Estimated Creatinine Clearance 55.35 ml/min; Globulin 3.8 g/dL (2.2-4.2); Glucose 159 mg/dL (74-106); Lactic Acid 1.7 mmol/L (0.4-2.0); Lipase 15821 U/L (73-393); Potassium 4.1 mmol/L (3.5-5.1); Protein, Total 7.1 g/dL (6.4-8.2); Sodium Level 141 mmol/L (136-145)
[2019-02-09 16:52] VITALS: BP 126/94; PULSE 85; RESP 16; O2SAT 98
--- NOTE | 2019-02-09 17:18 | PCM.HP.BLA ---
Problem List (1) Gallstones Status: Acute (2) Pancreatitis Status: Acute History and Physical Date of Admission: 02/09/19 [facility] [address] [place], [place] [id number] OFFICE VISIT Date of Service: 02/09/19 MR#:[id number] Name: EILEEN CHRISTINE Rep #:[id number] : 1950 Provider:Hillary Khan PA-C Age/Sex: 68/F Location:[facility] Status:Signed Intake Vital Signs 02/09/19 Body Mass Index (BMI) 33.9 02/09/19 Blood Pressure 88/61 L 02/09/19 Blood Pressure Location Lt brachial 02/09/19 Blood Pressure Position Supine 02/09/19 Blood Pressure 104/57 L 02/09/19 Blood Pressure Location Lt brachial 02/09/19 Blood Pressure Position Supine 02/09/19 Height 5 ft 4 in 02/09/19 Weight: 190 lb 02/09/19 Body Mass Index (BMI) 32.5 02/09/19 Blood Pressure 67/46 L 02/09/19 Blood Pressure Location Lt brachial 02/09/19 Blood Pressure Position Sitting 02/09/19 Respiratory Rate 14 02/09/19 Pulse Rate 84 02/09/19 Pulse Source Monitor 02/09/19 Temperature 98.1 F 02/09/19 Temperature Source Oral 02/09/19 Pulse Ox 92 02/09/19 Oxygen Delivery Method room air Intake Visit Reasons: [facility] ER F/U 02/08 Gall Stones Chief Complaint: Low back pain 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 Is patient in pain?: Yes (epigastric/ LUQ pain) Pain scale (1-10): 8 Allergies adhesive Allergy (Verified 02/09/19 15:25) Unknown aspirin [From Aggrenox] Allergy (Verified 02/09/19 15:25) Unknown benzocaine [From Cetacaine] Allergy (Verified 02/09/19 15:25) Unknown butamben [From Cetacaine] Allergy (Verified 02/09/19 15:25) Unknown cortisone [Cortisone] Allergy (Verified 02/09/19 15:25) Unknown dipyridamole [From Aggrenox] Allergy (Verified 02/09/19 15:25) Unknown lansoprazole [From Prevacid] Allergy (Verified 02/09/19 15:25) Unknown latex Allergy (Verified 02/09/19 15:25) Unknown meclizine Allergy (Verified 02/09/19 15:25) Unknown methylprednisolone acetate [From Depo-Medrol] Allergy (Verified 02/09/19 15:25) Unknown metoprolol Allergy (Verified 02/09/19 15:25) Unknown omeprazole [From Prilosec] Allergy (Verified 02/09/19 15:25) Unknown omeprazole magnesium [From Prilosec] Allergy (Verified 02/09/19 15:25) Unknown oxybutynin chloride [From Ditropan] Allergy (Verified 02/09/19 15:25) Unknown povidone-iodine [From Betadine] Allergy (Verified 02/09/19 15:25) Unknown soap [From Betadine] Allergy (Verified 02/09/19 15:25) Unknown sulfamethoxazole [From Bactrim] Allergy (Verified 02/09/19 15:25) Unknown tegaserod [From Zelnorm] Allergy (Verified 02/09/19 15:25) Hives tegaserod hydrogen maleate [From Zelnorm] Allergy (Verified 02/09/19 15:25) Unknown tetracaine [From Cetacaine] Allergy (Verified 02/09/19 15:25) Unknown tolterodine tartrate [From Detrol] Allergy (Verified 02/09/19 15:25) Unknown trimethoprim [From Bactrim] Allergy (Verified 02/09/19 15:25) Unknown codeine Adverse Reaction (Verified 02/09/19 15:25) Unknown mirabegron [From Myrbetriq] Adverse Reaction (Verified 02/09/19 15:25) Other tizanidine Adverse Reaction (Verified 02/09/19 15:25) Other DEPOMEDROL Allergy (Uncoded 02/09/19 15:25) Angioedema PAPER TAPE Adverse Reaction (Uncoded 02/09/19 15:25) Rash Medications Gabapentin [Neurontin] 300 mg PO QHS 01/11/14 [History Confirmed 02/09/19] Levothyroxine [Synthroid] 50 mcg PO DAILY 01/11/14 [History Confirmed 02/09/19] Acetaminophen [Tylenol] 650 mg PO Q6H PRN 04/11/14 [History Confirmed 02/09/19] Lisinopril [Prinivil] 10 mg PO DAILY 06/02/18 [History Confirmed 02/09/19] diazepam 5 mg tablet 5 mg PO QHS PRN 01/13/19 [History Confirmed 02/09/19] lubiprostone 8 mcg capsule 8 mcg PO DAILY cap 01/13/19 [History Confirmed 02/09/19] Esomeprazole Magnesium 20 mg PO DAILY 02/08/19 [History Confirmed 02/09/19] Hyoscyamine Sulfate 0.125 mg PO DAILY 02/08/19 [History Confirmed 02/09/19] Multivitamin [Daily Multiple Vitamin] 1 ea PO BID 02/08/19 [History Confirmed 02/09/19] Ondansetron [Zofran Odt] 4 mg PO Q8H PRN PRN #10 tab 02/09/19 [Rx Confirmed 02/09/19] PFSH Medical History Environmental allergies (Acute) Anemia (Acute) Arthritis (Acute) Cataracts, bilateral (Acute) IBS (irritable bowel syndrome) (Chronic) Osteoarthritis (Acute) TIA (transient ischemic attack) (Acute) History of atrial dilatation (Acute) History of DVT (deep vein thrombosis) (Acute) Fibromyalgia (Chronic) Dysmetabolic syndrome X (Acute) DVT (deep venous thrombosis) (Acute) Barretts esophagus (Acute) Hypothyroidism (Chronic) Essential hypertension (Chronic) Segmental and somatic dysfunction of pelvic region (Acute) Segmental and somatic dysfunction of lumbar region (Acute) Segmental and somatic dysfunction of thoracic region (Acute) DDD (degenerative disc disease), lumbar (Chronic) PAD (peripheral artery disease) (Chronic) GERD (gastroesophageal reflux disease) (Chronic) Surgical History Hx of dilation and curettage (Acute) Hx of cardiac cath (Acute) History of Robbie fundoplication (Acute) S/P gastroplasty (Acute) History of laparotomy (Acute) Hx of tubal ligation (Acute) hx of filter removal (Acute) Hx of superior vena cava filter placement (Acute) Hx of hysterectomy (Acute) Hx of local excision of skin lesion (Acute) History of esophagogastroduodenoscopy (EGD) (Acute) Hx of colonoscopy (Acute) History of tonsillectomy (Resolved) H/O hernia repair (Resolved) Hx of bilateral cataract extraction (Acute) Family History Mother Cancer Celiac disease Father Cancer Sister Hypertension Other Colon cancer Myocardial infarction Social History (Updated 02/09/19 @ 17:13 by Hillary Khan PA-C) Smoking Status: Never smoker alcohol intake: never substance use type: does not use what type of physical activity do you participate in: walking frequency: 3-4 times per week HPI: EILEEN CHRISTINE, is a 68 F who presents to the office today for epigastric pain. Patient presented to the ED yesterday with chest pain, nausea, vomiting. Patient had a CT scan which demonstrated small gallstones, pericholecystic fluid is present. Labs demonstrated AST 137, ALT 94, T Bili 0.50. Patient drank eggnog around 7 pm on Friday. Patient developed chest pain around 8 pm and began throwing up around 9 pm. Patient stated she called the squad and presented to the ED. Patient had an EKG which per report sinus rhythm, no acute injury pattern, non-specific ST changes. Patient has also had chronic issue with swallowing since her laparoscopic robbie for a diaphragmatic hernia in 2011. Patient notes she was not able to eat anything except clear liquids from June through October due to complication from her procedure. Patient noted she has had multiple dilatations with the largest being 22 mm balloon. Per patient they have increased her esophagus as far as possible. Patient has had all of these procedures at [facility]. Patient also noted she had removed part of the stomach to create her esophagus. Patient states she has had all of her previous scopes with Dr. Chavarria. Patient notes she has continued to note dizziness and seeing spots. She is dry heaving. She notes she was able to eat oatmeal and an egg this morning, however it took her 3 hours to do so secondary to feeling as though food was getting stuck. Patient states she has to cut up her medication in order to swallow. She denies pain at the right upper quadrant. She notes all of pain is left upper quadrant and epigastric in region. Patient notes two previous TIAs. She denies myocardial infarction, blood clots. She is on daily aspirin. She denies having symptoms like this previously. ROS General General: Yes weight change, appetite, fatigue and weakness; no colon cancer or breast cancer HEENT HEENT: Yes difficulty swallowing and eye surgery; no eye injury, swollen glands or hoarseness Endo Endocrine: No thyroid disease, diabetes mellitus, thyroid cancer, Hair loss, heat intolerance or cold intolerance Skin Skin: No rash or changing moles Musc Musculoskeletal: Yes back problems, arthritis and joint pain; no rheumatoid arthritis or gout Cardio Cardiovascular: Yes heart disease, high blood pressure and chest pain; no murmur, pacemaker, atrial fibrillation, heart attack, heart stent, palpitations or shortness of breat with exertion Psych Psychiatric: Yes anxiety; no depression or hearing voices Resp Respiratory: Yes shortness of breath, No sleep apnea, Yes cough, No COPD, No asthma, No emphysema, No wheezing Gastro Gastrointestinal: Yes abdominal pain, Yes nausea or vomiting, No diarrhea, No constipation, No blood in stool, Yes acid reflux, No hemorrhoids, No ulcers, Yes gallbladder problem, No black,tarry stools John Hematologic: No blood thinners, No blood disorders, No bleeding, No anemia, No blood clots Neuro Neurologic: Yes numbness, Yes tingling, Yes weakness Exam Const General: cooperative, acute distress, ill appearing (Unable to sit up, hypotensive, dry heaving in the office) [facility] Head: normal to inspection Eyes General: appearance normal, both eyes and all related structures Neck Neck: normal visual inspection Neck mass: No Resp Effort & Inspection: normal respiratory effort Auscultation: clear to auscultation bilaterally Cardio Rate: regular rate Rhythm: regular rhythm Heart Sounds: no murmurs GI Inspection: obesity, scar Palpation: soft, tender (LUQ, LLQ, epigastric) Auscultation: hyperactive bowel sounds Skin General: no rashes or lesions noted Neuro General: no focal motor deficits, CN's II-XI intact bilaterally Extrem General: normal to inspection Psych Appearance: grossly normal Affect: normal affect Assessment & Plan Problems 1. Epigastric pain R10.[address] Infante also evaluated this patient. Patient is ill appearing, dehydrated with chronic orthostatic hypotension, chronic history of difficulty swallowing s/p lap Robbie. Acute abdominal pain. Cholelithiasis demonstrated on CT scan. Patient scheduled RUQ u/s at 0430 pm. Consideration of upper GI with small bowel follow-through possible tomorrow. Patient is ill appearing and should be admitted for dehydration and additional work-up including a formal RUQ ultrasound and repeat lab work. Patient will be transported to the ED via wheel chair and two nurses. We will await lab work and u/s to determine continued plan of care. Dr. Infante will contact the ED to give report. Differential diagnosis includes gastric ulcers, esophageal obstruction, gallstone pancreatitis, acute cholecystitis. Plan Detail Goals Improve ROM Decrease pain Decrease inflammation Barriers Previous lumbar surgery with hardware. Coding Level of Care Code Off vis,new,level 4 Diagnoses Epigastric pain R10.13 Abdominal location: epigastric 02/09/19 1713<Electronically signed by Hillary Khan PA-C> Date Hillary Khan PA-C
[2019-02-09] MEDS: HYDROmorphone 0.5 MG/0.5 ML SYRINGE IV (17:22)
[2019-02-09] MEDS: 0.9% Normal Saline 1,000 ML 250 ML IV (17:25)
--- NOTE | 2019-02-09 17:47 | HP.PCM_ITS ---
Problem List (1) Pancreatitis, gallstone Status: Acute (2) Cholecystitis Status: Acute History of Present Illness Date of Admission: 02/09/19 Chief Complaint: abdominal pain The patient is a 68 year old F presents with abdominal pain. Demetrio pain began on the as well as with chest pain. Seen in emergency room and work-up was unremarkable so sent home. Patient was vomiting yesterday as well as today and unable to keep anything down. Presented again to the emergency room and was found to have a lipase of 15,000. Patient had a CAT scan that showed small dependent gallstone versus incomplete calcification of the posterior gallbladder wall. Pericholecystic fluid present in keeping with acute cholecystitis. Dr. Infante was contacted and would evaluate the patient. Patient has never had pancreatitis before. Patient drinks alcohol very seldomly and has not drank alcohol recently. [] Past Medical History Past Medical History (Chronic Problems): Chronic Problems (Last Reviewed 02/09/19 @ 15:31 by America Schmitz) IBS (irritable bowel syndrome) (Chronic) Fibromyalgia (Chronic) Hypothyroidism (Chronic) Essential hypertension (Chronic) DDD (degenerative disc disease), lumbar (Chronic) PAD (peripheral artery disease) (Chronic) Bilateral LE small vessel disease GERD (gastroesophageal reflux disease) (Chronic) Medical History: Medical History (Last Reviewed 02/09/19 @ 17:50 by Sohail Bobo DO) Environmental allergies (Acute) Z91.09 Anemia (Acute) D64.9 Arthritis (Acute) M19.90 Cataracts, bilateral (Acute) H26.9 IBS (irritable bowel syndrome) (Chronic) K58.9 Osteoarthritis (Acute) M19.90 TIA (transient ischemic attack) (Acute) G45.9 History of atrial dilatation (Acute) Z86.79 History of DVT (deep vein thrombosis) (Acute) Z86.718 Fibromyalgia (Chronic) M79.7 Dysmetabolic syndrome X (Acute) E88.81 DVT (deep venous thrombosis) (Acute) I82.409 Barretts esophagus (Acute) K22.70 Hypothyroidism (Chronic) E03.9 Essential hypertension (Chronic) I10 Segmental and somatic dysfunction of pelvic region (Acute) M99.05 Segmental and somatic dysfunction of lumbar region (Acute) M99.03 Segmental and somatic dysfunction of thoracic region (Acute) M99.02 DDD (degenerative disc disease), lumbar (Chronic) M51.36 PAD (peripheral artery disease) (Chronic) I73.9 Bilateral LE small vessel disease GERD (gastroesophageal reflux disease) (Chronic) K21.9 Allergies adhesive Allergy (Verified 02/09/19 15:25) Unknown aspirin [From Aggrenox] Allergy (Verified 02/09/19 15:25) Unknown benzocaine [From Cetacaine] Allergy (Verified 02/09/19 15:25) Unknown butamben [From Cetacaine] Allergy (Verified 02/09/19 15:25) Unknown cortisone [Cortisone] Allergy (Verified 02/09/19 15:25) Unknown dipyridamole [From Aggrenox] Allergy (Verified 02/09/19 15:25) Unknown lansoprazole [From Prevacid] Allergy (Verified 02/09/19 15:25) Unknown latex Allergy (Verified 02/09/19 15:25) Unknown meclizine Allergy (Verified 02/09/19 15:25) Unknown methylprednisolone acetate [From Depo-Medrol] Allergy (Verified 02/09/19 15:25) Unknown metoprolol Allergy (Verified 02/09/19 15:25) Unknown omeprazole [From Prilosec] Allergy (Verified 02/09/19 15:25) Unknown omeprazole magnesium [From Prilosec] Allergy (Verified 02/09/19 15:25) Unknown oxybutynin chloride [From Ditropan] Allergy (Verified 02/09/19 15:25) Unknown povidone-iodine [From Betadine] Allergy (Verified 02/09/19 15:25) Unknown soap [From Betadine] Allergy (Verified 02/09/19 15:25) Unknown sulfamethoxazole [From Bactrim] Allergy (Verified 02/09/19 15:25) Unknown tegaserod [From Zelnorm] Allergy (Verified 02/09/19 15:25) Hives tegaserod hydrogen maleate [From Zelnorm] Allergy (Verified 02/09/19 15:25) Unknown tetracaine [From Cetacaine] Allergy (Verified 02/09/19 15:25) Unknown tolterodine tartrate [From Detrol] Allergy (Verified 02/09/19 15:25) Unknown trimethoprim [From Bactrim] Allergy (Verified 02/09/19 15:25) Unknown codeine Adverse Reaction (Verified 02/09/19 15:25) Unknown mirabegron [From Myrbetriq] Adverse Reaction (Verified 02/09/19 15:25) Other tizanidine Adverse Reaction (Verified 02/09/19 15:25) Other DEPOMEDROL Allergy (Uncoded 02/09/19 15:25) Angioedema PAPER TAPE Adverse Reaction (Uncoded 02/09/19 15:25) Rash Home Medications: Ambulatory Orders Medication Instructions Recorded Gabapentin [Neurontin] 300 mg PO QHS 01/11/14 Levothyroxine [Synthroid] 50 mcg PO DAILY 01/11/14 Lisinopril [Prinivil] 10 mg PO DAILY 06/02/18 diazepam 5 mg tablet 5 mg PO QHS PRN 01/13/19 Acetaminophen [Tylenol Extra 500 - 1,000 mg PO QHS PRN PRN 02/09/19 Strength] Aspirin E.C. [Ecotrin] 81 mg PO DAILY@0800 02/09/19 Cholecalciferol (Vitamin D3) 5,000 unit PO DAILY 02/09/19 [Vitamin D3] Surgical History: Surgical History (Last Reviewed 02/09/19 @ 17:50 by Sohail Bobo DO) Hx of dilation and curettage (Acute) Z98.890 Hx of cardiac cath (Acute) Z98.890 X2- 2007 History of Robbie fundoplication (Acute) Z98.890 06/2011 S/P gastroplasty (Acute) Z98.890 06/2011 History of laparotomy (Acute) Z98.890 06/2011 Hx of tubal ligation (Acute) Z98.51 1983 hx of filter removal (Acute) 04/12/14 Hx of superior vena cava filter placement (Acute) Z95.828 01/13/14 Hx of hysterectomy (Acute) Z90.710 07/24/2005 Hx of local excision of skin lesion (Acute) Z98.890 Right forearm lipoma- 10/2015 History of esophagogastroduodenoscopy (EGD) (Acute) Z98.890 Hx of colonoscopy (Acute) Z98.890 History of tonsillectomy (Resolved) Z90.89 H/O hernia repair (Resolved) Z98.890, Z87.19 Hx of bilateral cataract extraction (Acute) Z98.41, Z98.42 Surgical History: noncontributory Smoking Status: Never smoker - *Family History Maternal Family History: Family History (Last Reviewed 02/09/19 @ 17:50 by Sohail Bobo DO) Mother Cancer Celiac disease Father Cancer Sister Hypertension Other Colon cancer Myocardial infarction Review of Systems Constitutional: Denies: Anorexia, Chills, Fever Eyes: Denies: Blurred vision, Double vision HEENT: Denies: Head Aches, Sinus Congestion, Sinus Drainage Cardiovascular: Reports: Chest Pain. Denies: Edema Respiratory: Denies: Cough, Shortness of breath at rest, Sputum production Gastrointestinal: Reports: Abdominal Pain, Constipation, Nausea, Vomiting. Denies: Diarrhea Genitourinary: Denies: Dysuria Musculoskeletal: Denies: Joint Pain, Joint Tenderness Skin: Denies: Rash, Wounds Neurological: Denies: Numbness, Tingling, Focal weakness Psychiatric: Denies: Anxiety, Depression Endocrine: Denies: Change in Body Habitus, Heat/ Cold Intolerance Hematologic/ Lymphatic: Denies: Easy Bruising, Hx of blood clot Comment: All review systems are otherwise negative except for as mentioned above and in the HPI. VTE Information - Inpt Only VTE Present on Admission: No VTE Mechan Device Prophylaxis: SCD's VTE Pharm Prophylaxis ordered?: No Reason prophylaxis not ordered:: Medical Contraindication Patient Problems: Active and Suspected Problems (Last Reviewed 02/09/19 @ 15:31 by America Schmitz) Pancreatitis (Acute) Gallstones (Acute) Pancreatitis, gallstone (Acute) Cholecystitis (Acute) - Physical Exam Vitals/I&O's: Vital Signs Temp Pulse Resp BP Pulse Ox 36.8 C 85 16 126/94 H 98 02/09/19 15:44 02/09/19 16:52 02/09/19 16:52 02/09/19 16:52 02/09/19 16:52 Oxygen Delivery Method Room Air Weight: 88 kg Body Mass Index (BMI) 33.3 Intake and Output for Last 24 Hours 02/07/19 02/08/19 02/09/19 23:59 23:59 23:59 Intake Total 1000 / 1000 Balance 1000 / 1000 General: Alert, Cooperative, No apparent distress HEENT: Atraumatic, Normocephalic Oral: Moist Mucosa, No Gingival or Mucosal Lesions/ Ulcerations Neck: No Nodes, Trachea Midline Lungs: Clear to auscultation, Normal air movement, No rhonchi, No wheeze, No rales Cardiovascular: Regular rate, Regular Rhythm, Normal S1, Normal S2, No murmurs Abdomen: Bowel Sounds Present, Soft, Non Tender, Non-Distended, No Hepato- splenomegaly Extremities: No edema, No Calf Tenderness Skin: No rashes, No breakdown Neurological: Gait narrow based and stable, - - no clonus Psych/Mental Status: Normal Affect, Appropriate Laboratory Results 02/09/19 16:10: WBC 17.5 H, RBC 4.36, Hgb 13.5, Hct 41.1, MCV 94.3, MCH 31.0, MCHC 32.8, RDW Std Deviation 42.5, RDW Coeff of Ronnie 12.3, Plt Count 316, MPV 9.5, Immature Gran % (Auto) 0.500, Neut % (Auto) 82.3 H, Lymph % (Auto) 7.9 L, [place] % (Auto) 7.8, Eos % (Auto) 1.2, Baso % (Auto) 0.3, Absolute Neuts (auto) 14.4 H, Absolute Lymphs (auto) 1.38, Nucleated RBC % 0 02/09/19 16:10: Sodium 141, Potassium 4.1, Chloride 107, Carbon Dioxide 27.0, Anion Gap 7, BUN 15, Creatinine 0.84, Estim Creat Clear Calc 55.35, Est GFR (MDRD) Af Amer 87, Est GFR (MDRD) Non-Af 72, BUN/Creatinine Ratio 17.9, Glucose 159 H, Calcium 9.1, Total Bilirubin 1.40 H, AST 109 H, ALT 152 H, Alkaline Phosphatase 107, Troponin I 0.034, Total Protein 7.1, Albumin 3.3, Globulin 3.8, Albumin/Globulin Ratio 0.9, Lipase 33301 H 02/09/19 16:10: Lactic Acid 1.7 Clinical Impression(s) from Imaging Studies Gallbladder Ultrasound 02/09/19 15:57 IMPRESSION: Multiple gallstones. Gallbladder wall thickening. Mild biliary dilatation. Electronically Signed: Deepak Mendez MD at 17:13 EST , Service support , Current Medications Sodium Chloride () 1,000 mls @ 250 mls/hr IV .Q4H SELAM Last Admin: 02/09/19 17:25 Dose: 250 mls/hr Documented by: Assessment/Plan All Active Problems (Last Reviewed 02/09/19 @ 15:31 by America Schmitz) Pancreatitis (Acute) Gallstones (Acute) Pancreatitis, gallstone (Acute) Cholecystitis (Acute) Hx of dilation and curettage (Acute) Hx of cardiac cath (Acute) History of Robbie fundoplication (Acute) S/P gastroplasty (Acute) History of laparotomy (Acute) Hx of tubal ligation (Acute) hx of filter removal (Acute) Hx of superior vena cava filter placement (Acute) Hx of hysterectomy (Acute) Hx of local excision of skin lesion (Acute) History of esophagogastroduodenoscopy (EGD) (Acute) Hx of colonoscopy (Acute) Environmental allergies (Acute) Anemia (Acute) Arthritis (Acute) Cataracts, bilateral (Acute) Osteoarthritis (Acute) TIA (transient ischemic attack) (Acute) History of tonsillectomy (Resolved) History of atrial dilatation (Acute) H/O hernia repair (Resolved) History of DVT (deep vein thrombosis) (Acute) Dysmetabolic syndrome X (Acute) DVT (deep venous thrombosis) (Acute) Hx of bilateral cataract extraction (Acute) Barretts esophagus (Acute) Segmental and somatic dysfunction of pelvic region (Acute) Segmental and somatic dysfunction of lumbar region (Acute) Segmental and somatic dysfunction of thoracic region (Acute) 1. acute pancreatitis * Suspect gallstone is the etiology though was not definitively identified on the CAT scan * Patient does not drink alcohol often at all and has not drank recently * Plan is for IV fluids, IV analgesia and antiemetics. * Patient will be n.p.o. with exception of ice chips for now * Patient able to engage in greater than 5 METS of activity at baseline and therefore is medically optimized to proceed with surgery. 2. Acute cholecystitis * General surgery on consultation and treatment the patient would benefit from a cholecystectomy on the 3. VTE prophylaxis: Moderate risk. We will place the patient on SCDs for now with the potential upcoming surgery on the 4. Advanced care planning: Asked patient if she wanted CPR. She immediately said no. I clarify that with her as she is fairly healthy at baseline and explained to her in great detail that if her heart stops she is and without CPR then she will not survive. Patient was hesitant. I discussed with her f urther that, least for now, to be full CODE STATUS, particular with surgery and anesthesia she could have been a vent though profoundly unlikely. She agreed. I did encourage her that she under family discuss further. Spent an additional 15 minutes discussing advanced care planning with patient and her . Code Visit Inpatient E&M: 47181 Init Hosp L3
[2019-02-09 18:15] VITALS: BP 114/57; PULSE 86; RESP 18; TEMP 37.2; O2SAT 96
[2019-02-09 18:20] VITALS: BMI 33.0
[2019-02-09 18:35] VITALS: BMI 33.1
[2019-02-09] MEDS: 0.9% Normal Saline 1,000 ML 200 ML IV (19:49)
[2019-02-10] VITALS (14 sets, daily range): BP systolic 110–150; BP diastolic 50–104; PULSE 62–81; RESP 15–20; TEMP 36.2–37.1; O2SAT 91–99; BMI 33.0; BMI 33.1
[2019-02-10] MEDS: 0.9% Normal Saline 1,000 ML 200 ML IV ×2 (00:25→05:07)
--- NOTE | 2019-02-10 05:56 | PCM.PN.BLA ---
Progress Note Pt appears very stable. Labs pending. Plan Lap GB with IOC and possible CBD exploration this a.m. STROKE Vital Signs/Narrative: Vital Signs Temp Pulse Resp BP Pulse Ox 02/10/19 05:17 97.2 F L 77 20 H 127/60 H 97
[2019-02-10 06:16] LABS: Absolute Lymphocyte Count 2.69 X10^3/uL (0.83-4.51); Absolute Neutrophil Count 6.2 X10^3/uL (2.0-7.7); Basophil# 0.05 X10^3/uL; Basophil% 0.5 % (0-1); Eosinophil# 0.46 X10^3/uL; Eosinophils% 4.5 % (0-5); Hematocrit 36.1 % (37-47); Hemoglobin 11.6 g/dL (12.0-15.0); Lymphocyte # 2.69 X10^3/ul (4.0); Lymphocyte % 26.4 % (19-41); Mean Corp Hgb Conc 32.1 g/dL (32-36); Mean Corpuscular Hgb 30.4 pg (27.0-32.0); Mean Corpuscular Volume 94.5 fL (81-99); Mean Platelet Vol. 9.9 fl (6.2-12.0); Monocyte# 0.81 X10^3/uL; Monocyte% 7.9 % (0-10); NRBC Flagged by Analyzer 0 % (0-5); Neutrophil # 6.17 X10^3/uL (2.7-7.7); Neutrophil % 60.5 % (47-70); Platelet Count 251 K/mm3 (150-450); RBC Distribution Width CV 12.6 % (11.6-14.6); RBC Distribution Width SD 43.7 fl (35.1-43.9); Red Blood Count 3.82 M/mm3 (4.2-5.4); White Blood Count 10.2 K/mm3 (4.4-11.0)
[2019-02-10 06:48] LABS: ALB/GLOB Ratio 0.8 RATIO (0.9-2.4); AST(SGOT) 73 U/L (15-37); Alanine Aminotransfer ALT/SGPT 131 U/L (13-56); Albumin, Serum 2.6 g/dL (3.2-5.0); Alkaline Phosphatase 91 U/L (45-117); Anion Gap 7 (5-15); BUN 14 mg/dL (7-18); BUN/Creat Ratio 22.2 RATIO (10-20); Calcium,Total 8.5 mg/dL (8.5-10.1); Chloride 113 mmol/L (98-107); Creatinine, Serum 0.63 mg/dL (0.55-1.02); EST Glomerular Filtration Rate 99 mL/min (>60); Est Glom Filt Rate - Afr Amer 120 mL/min (>60); Globulin 3.4 g/dL (2.2-4.2); Glucose 110 mg/dL (74-106); Lipase 1554 U/L (73-393); Potassium 3.4 mmol/L (3.5-5.1); Sodium Level 144 mmol/L (136-145); Thyroid Stim Hormone (TSH) 0.01 uIU/mL (0.358-3.74)
--- NOTE | 2019-02-10 09:04 | NURSING ---
pt transported to AC via bed at this time. IV on pump and pre-op antibiotic sent with pt. report called to Iesha.
[2019-02-10] MEDS: Lactated Ringers 1,000 ML 100 ML IV ×3 (09:21→19:26)
[2019-02-10] MEDS: Cefazolin 2 GM in 0.9% Normal Saline 100 ML IV (09:47)
--- NOTE | 2019-02-10 09:47 | DCINST_ITS ---
Discharge Diet: Light diet - advance as tolerated - if you have questions about your diet instructions, please talk to you doctor. Discharge Activity: May Not Drive - for 3-5 days or while taking narcotic pain medicine. May shower in (days): 1 Lifting Restrictions: 10 pounds Call your doctor if your incision/area has: Continuous Slow Oozing, Sudden Increased Bleeding, Increased Pain/ Swelling, Increased Redness, Foul Smelling Discharge Call your doctor if you observe: Fever of 101 or Higher Suture Line Care: Avoid Pulling/Pushing, Avoid Pinching/Bending Additional Dressing/Incision Instructions:: Change or remove dressing in 4 days. Leave steri-strips in place for 1 week. Allergies/Adverse Reactions: Allergies adhesive Allergy (Verified 02/09/19 15:25) Unknown aspirin [From Aggrenox] Allergy (Verified 02/09/19 15:25) Unknown benzocaine [From Cetacaine] Allergy (Verified 02/09/19 15:25) Unknown butamben [From Cetacaine] Allergy (Verified 02/09/19 15:25) Unknown cortisone [Cortisone] Allergy (Verified 02/09/19 15:25) Unknown dipyridamole [From Aggrenox] Allergy (Verified 02/09/19 15:25) Unknown lansoprazole [From Prevacid] Allergy (Verified 02/09/19 15:25) Unknown latex Allergy (Verified 02/09/19 15:25) Unknown meclizine Allergy (Verified 02/09/19 15:25) Unknown methylprednisolone acetate [From Depo-Medrol] Allergy (Verified 02/09/19 15:25) Unknown metoprolol Allergy (Verified 02/09/19 15:25) Unknown omeprazole [From Prilosec] Allergy (Verified 02/09/19 15:25) Unknown omeprazole magnesium [From Prilosec] Allergy (Verified 02/09/19 15:25) Unknown oxybutynin chloride [From Ditropan] Allergy (Verified 02/09/19 15:25) Unknown povidone-iodine [From Betadine] Allergy (Verified 02/09/19 15:25) Unknown soap [From Betadine] Allergy (Verified 02/09/19 15:25) Unknown sulfamethoxazole [From Bactrim] Allergy (Verified 02/09/19 15:25) Unknown tegaserod [From Zelnorm] Allergy (Verified 02/09/19 15:25) Hives tegaserod hydrogen maleate [From Zelnorm] Allergy (Verified 02/09/19 15:25) Unknown tetracaine [From Cetacaine] Allergy (Verified 02/09/19 15:25) Unknown tolterodine tartrate [From Detrol] Allergy (Verified 02/09/19 15:25) Unknown trimethoprim [From Bactrim] Allergy (Verified 02/09/19 15:25) Unknown codeine Adverse Reaction (Verified 02/09/19 15:25) Unknown mirabegron [From Myrbetriq] Adverse Reaction (Verified 02/09/19 15:25) Other tizanidine Adverse Reaction (Verified 02/09/19 15:25) Other DEPOMEDROL Allergy (Uncoded 02/09/19 15:25) Angioedema PAPER TAPE Adverse Reaction (Uncoded 02/09/19 15:25) Rash Medications to take at Discharge Gabapentin [Neurontin] 300 mg PO QHS 01/11/14 Levothyroxine [Synthroid] 50 mcg PO DAILY 01/11/14 Lisinopril [Prinivil] 10 mg PO DAILY 06/02/18 diazepam 5 mg tablet 5 mg PO QHS PRN 01/13/19 Acetaminophen [Tylenol Extra Strength] 500 - 1,000 mg PO QHS PRN PRN 02/09/19 Aspirin E.C. [Ecotrin] 81 mg PO DAILY@0800 02/09/19 Cholecalciferol (Vitamin D3) [Vitamin D3] 5,000 unit PO DAILY 02/09/19 Primary Care Physician: Miryam Riojas MD [Primary Care Provider] - Test Results: Test results from this visit will be discussed in further detail at your follow- up appointment, if applicable. Please Follow Up With: Davon Infante MD - [phone] When: Call to make an appointment to be seen in about 10 days.
--- NOTE | 2019-02-10 10:05 | GALL_PTH ---
PATIENT: EILEEN CHRISTINE LOC: MS3 U#:[id number] AGE/SX: 68/F ROOM: CO310 RE02/09/[address]: Dr. Keshav Elizondo MD : 1950 BED: 1 DIS: 02/11/2019 SPEC #: [id number] RECD: 02/10/19 12:57 STATUS: KEKE REJason #: [id number] IAN: 02/10/19 10:[address]: Davon Infante DEPT: SURGICAL PATHOLOGY RECD BY: Mary Luna ENTERED: 02/10/19 13:24 SP TYPE: ARACELI CRISTINA DR: DO Dr. Miryam Robbins MD Dr. Mark Tereletsky, DO Tissues: Gallbladder, NOS Procedures: Surgery Specimen Level III HEADER OPERATION: Laparoscopic cholecystectomy with intraoperative cholangiography PRE-OP DIAGNOSIS: Epigastric pain R10.13 TISSUE SUBMITTED: Gallbladder MICROSCOPIC DIAGNOSIS Gallbladder, cholecystectomy: Mild chronic cholecystitis and cholelithiasis. KEMAL:xenia 02/12/19 MICROSCOPIC DESCRIPTION Slides are reviewed. GROSS DESCRIPTION Received is one container labeled with the patient's name and designated gallbladder. The specimen consists of a gallbladder measuring 8 cm in length and up to 3.5 cm in diameter. The external surface is pink-chou, smooth and glistening for the most part. Focally it is granular, hemorrhagic and contains cautery artifact. The gallbladder contains green-yellow mucoid bile and multiple yellow-orange, mulberry stones measuring in aggregate 3 x 3 x 1 cm and 0.1 to 0.5 cm in greatest dimension. The mucosa is bile-stained and without any mass lesions. The gallbladder wall measures up to 0.3 cm in thickness. A focal area shows increased amount of subserosal fat. Tar Kettle Runner sections from the gallbladder and the cystic duct are submitted in one cassette. / KEMAL:xenia 02/10/19 TC:3 CPT: 76252
--- NOTE | 2019-02-10 11:08 | OP.PCM_ITS ---
Problem List (1) Pancreatitis, gallstone Status: Acute (2) Cholelithiasis with chronic cholecystitis Status: Chronic Qualifiers: Cholelithiasis location: gallbladder Biliary obstruction: without biliary obstruction Qualified Code(s): K80.10 - Calculus of gallbladder with chronic cholecystitis without obstruction Report of Operation Date of Procedure: 02/10/19 Pre-Operative Diagnosis: Gallstone pancreatitis, chronic cholecystitis, cholelithiasis Post-Operative Diagnosis: Same Surgery/Procedure Performed:: Laparoscopic cholecystectomy with cholangiograms Description of Surgical Findings:: Timeout and informed consent was obtained. 68-year-old female taken out from placement table underwent general endotracheal intubation anesthesia. The abdomen sterilely prepped draped. Ancef 2 g were given intravenously preoperatively. 0.5% Marcaine was used as a local anesthetic. Skin sites were pre-anesthetized. Throughout the procedure total 30 cc was used. A infraumbilical incision was created sharp dissection carried down through the subcu tissue holding sutures of 0 Vicryl placed. I did avoid a slightly more superior umbilical hernia. I went inferior to that used a varies needle insufflated the abdomen CO2 to a pressure of 10 minutes mercury pressure Kayla trocar inserted no concern trocar injuries there were extensive adhesions in the epigastric area left upper quadrant right upper quadrant from her previous upper GI surgery. I placed the port in the supraumbilical slightly left midline and then I used electrified scissors to transect omental adhesions to the anterior abdominal wall giving freeway then to the right upper quadrant. Then placed 2 more 5 mm trochars one in the right upper mid abdomen area and one lateral abdomen area. The gallbladder was distracted the left lobe of the liver was floppy flipped fell down on the portal area and had to be carefully elevated. Blunt dissection was instituted until clearly the cystic duct cystic junction identified. The critical view was achieved with the cystic artery identified an d cystic duct identified. Hem-o-yoli clips were placed proximally distally on the cystic artery. Transecting it hemo-lock clip was placed on the cystic duct incision was made in the cystic duct there was no stones noted there a cholangiogram catheter was inserted affording through a 14-gauge Angiocath. Fluoroscopically control claims grams obtained this demonstrated normal flow into the duodenum I did not see any residual filling defect. 2 hemo-lock clips were placed on the cystic duct stump prior to transecting it the gallbladder was tediously dissected free from the liver bed was a small rent in the gallbladder causing some bile spillage and staining this was rapidly controlled and irrigated. There is no stone spillage. The gallbladder was then released from the liver bed the liver bed was inspected small little area of bile staining it was felt likely to be due to the gallbladder I did put some extra hemo-lock clips there in case there was a duct of Luschka. I irrigated the liver bed irrigated the right upper quadrant the gallbladder was placed in a retrieval bag it was exited at the umbilicus the liver that again inspected was noted to be hemostatic and I did not see any further bile staining. The remaining trochars removed and visualization the abdomen was allowed to deflate the CO2 the fascia at the infraumbilical site was closed by 0 Vicryl figure 8 suture skin edges approximate interrupted 4 Monocryl subdermal stitches Steri-Strips Telfa and OpSite dressings applied. Specimen gallbladder. Drains none. Blood loss minimal. She was taken to the recovery area in satisfactory condition without apparent complication Davon Infante M.D., F.A.C.S. Type of Anesthesia:: General Anesthesiologist: Debra Clemente
[2019-02-10] MEDS: Bupivacaine Mpf 0.5% 30 ML VIAL (11:12)
--- NOTE | 2019-02-10 12:13 | EKG12_ITS ---
Test Reason : POSTOP Blood Pressure : / mmHG Vent. Rate : 064 BPM Atrial Rate : 064 BPM P-R Int : 178 ms QRS Dur : 074 ms QT Int : 444 ms P-R-T Axes : 037 -22 -02 degrees QTc Int : 458 ms Normal sinus rhythm Low voltage QRS Borderline ECG When compared with ECG of 09-FEB-2019 15:45, Nonspecific T wave abnormality now evident in Anterolateral leads QT has shortened Confirmed by DIANA LORENZANA ([id number]), editorial specialist CARTER HADDAD ([id number]) on 02/21/2019 10:38:43 AM Referred By: YODIT Confirmed By:DIANA LORENZANA
--- NOTE | 2019-02-10 12:38 | CASEMGMT ---
As per admitting RN, pt has LW but is not able to bring in, does not have POA. Pt declined additional information. EPI [place]
--- NOTE | 2019-02-10 13:10 | CASEMGMT ---
RN CM Face to Face with patient for initial transition planning/care coordination assessment. RN CM introduced self and role at [facility]. Patient lying in bed, alert and oriented, at bedside. Patient willing to participate in assessment and is able to answer all questions appropriately. Care providers, pharmacy, and demographics verified. Patient wishes to discharge home, denies need for home health at this time. Patient states she has no further needs or concerns at this time. CM to follow for discharge planning needs that may arise. PCP: [facility] Specialists: KAVIN Chavarria Preferred Pharmacy: [facility] Insurance: [employer] Prescription Benefit: yes Living Will/HPOA: yes, Robin Rojas LNOK: Living Arrangements: Patient lives with in 2 story home with 2 steps and railing to enter the home. Transportation: self/ DME/HHC: Patient states she has shower chair, grab bars, walker at home. Disposition Plan: Patient to discharge home with family support and follow-up plans in place. Mana SAMUELSN, RN, CM
[2019-02-10] MEDS: HYDROmorphone 0.5 MG/0.5 ML SYRINGE IV (14:05)
--- NOTE | 2019-02-10 14:21 | PN_ITS ---
Patient Problems: Active and Suspected Problems (Last Reviewed 02/09/19 @ 17:50 by Sohail Bobo DO) Pancreatitis (Acute) Gallstones (Acute) Pancreatitis, gallstone (Acute) Cholecystitis (Acute) Subjective: Patient was seen and examined today, she returned from surgery today and underwent a laparoscopic cholecystectomy with cholangiograms. She is having some postop pain at this time, her is in her room and I discussed her medical care with him. Patient is alert and appropriate at this time. - Physical Exam Vitals/I&O's: Vital Signs Temp Pulse Resp BP Pulse Ox 98.5 F 67 16 137/71 H 91 02/10/19 13:04 02/10/19 13:04 02/10/19 13:04 02/10/19 13:04 02/10/19 13:04 Oxygen Flow Rate (L/min) 2 Oxygen Delivery Method Nasal Cannula Weight: 87.5 kg Body Mass Index (BMI) 33.0 Intake and Output for Last 24 Hours 02/08/19 02/09/19 02/10/19 23:59 23:59 23:59 Intake Total 1600 / 1650 4358.33 / 4358.33 Output Total 1200 / 1200 Balance 1600 / 1250 3158.33 / 3158.33 General: Alert, Oriented x3, Cooperative, Well developed HEENT: Atraumatic, PERRLA, EOMI, Normocephalic Oral: Moist Mucosa Neck: Supple, No Nuchal Rigidity, Trachea Midline, Thyroid Normal Size and Texture Lungs: Clear to auscultation, Normal air movement, No rhonchi, No wheeze, No rales Cardiovascular: Regular rate, Regular Rhythm, Normal S1, Normal S2, No murmurs, No Ectopic Activity, PMI Normal, No rub noted Extremities: No clubbing, No cyanosis, No edema, Capillary Refill Less than 3 Seconds Skin: No rashes, No breakdown Musculoskeletal: No Tenderness to Palpation of Joints or Extremities Neurological: Cranial nerves II-XII grossly intact, Neuro grossly intact, Sensory exam intact to light touch and pain, Coordination normal Psych/Mental Status: Normal Affect, Appropriate, Alert and oriented to time, place, person, mood and affect Laboratory Results 02/09/19 16:10: WBC 17.5 H, RBC 4.36, Hgb 13.5, Hct 41.1, MCV 94.3, MCH 31.0, MCHC 32.8, RDW Std Deviation 42.5, RDW Coeff of Ronnie 12.3, Plt Count 316, MPV 9.5, Immature Gran % (Auto) 0.500, Neut % (Auto) 82.3 H, Lymph % (Auto) 7.9 L, [place] % (Auto) 7.8, Eos % (Auto) 1.2, Baso % (Auto) 0.3, Absolute Neuts (auto) 14.4 H, Absolute Lymphs (auto) 1.38, Nucleated RBC % 0 02/09/19 16:10: Sodium 141, Potassium 4.1, Chloride 107, Carbon Dioxide 27.0, Anion Gap 7, BUN 15, Creatinine 0.84, Estim Creat Clear Calc 55.35, Est GFR (MDRD) Af Amer 87, Est GFR (MDRD) Non-Af 72, BUN/Creatinine Ratio 17.9, Glucose 159 H, Calcium 9.1, Total Bilirubin 1.40 H, AST 109 H, ALT 152 H, Alkaline Phosphatase 107, Troponin I 0.034, Total Protein 7.1, Albumin 3.3, Globulin 3.8, Albumin/Globulin Ratio 0.9, Lipase 22518 H 02/09/19 16:10: Lactic Acid 1.7 02/10/19 05:33: WBC 10.2, RBC 3.82 L, Hgb 11.6 L, Hct 36.1 L, MCV 94.5, MCH 30.4, MCHC 32.1, RDW Std Deviation 43.7, RDW Coeff of Ronnie 12.6, Plt Count 251, MPV 9.9, Immature Gran % (Auto) 0.200, Neut % (Auto) 60.5, Lymph % (Auto) 26.4, [place] % (Auto) 7.9, Eos % (Auto) 4.5, Baso % (Auto) 0.5, Absolute Neuts (auto) 6.2, Absolute Lymphs (auto) 2.69, Nucleated RBC % 0 02/10/19 05:33: Sodium 144, Potassium 3.4 L, Chloride 113 H, Carbon Dioxide 24.0, Anion Gap 7, BUN 14, Creatinine 0.63, Estim Creat Clear Calc 46.50, Est GFR (MDRD) Af Amer 120, Est GFR (MDRD) Non-Af 99, BUN/Creatinine Ratio 22.2 H, Glucose 110 H, Calcium 8.5, Total Bilirubin 0.70, AST 73 H, ALT 131 H, Alkaline Phosphatase 91, Total Protein 6.0 L, Albumin 2.6 L, Globulin 3.4, Albumin/Globulin Ratio 0.8 L, Lipase 1554 H, TSH 0.01 L Current Medications Acetaminophen (Tylenol) 650 mg PO Q6H PRN PRN PRN Reason: Pain Score 1-5/Temp > 100.7 F Diazepam (Valium) 5 mg PO QHS PRN PRN Reason: anxiety Hydromorphone HCl (Dilaudid Inj) 0.5 mg IV Q4H PRN PRN PRN Reason: Pain Score 6-10/10 Last Admin: 02/10/19 14:05 Dose: 0.5 mg Documented by: Lactated Ringer's () 1,000 mls @ 100 mls/hr IV .Q10H [facility] Last Infusion: 02/10/19 13:23 Dose: 100 mls/hr Documented by: Levothyroxine Sodium (Synthroid) 50 mcg PO DAILY@0600 [facility] Last Admin: 02/10/19 05:09 Dose: Not Given Documented by: Lisinopril (Zestril) 10 mg PO DAILY [facility] Last Admin: 02/10/19 09:08 Dose: Not Given Documented by: Melatonin (Melatonin) 3 mg PO QHS PRN PRN PRN Reason: INSOMNIA Ondansetron HCl (Zofran) 4 mg IV Q8H PRN PRN PRN Reason: NAUSEA/VOMITING Sodium Chloride () 10 - 40 ml IV UD PRN PRN Reason: SALINE FLUSH Medical Necessity - Tobacco Use Smoking Status: Never smoker Assessment/Plan All Active Problems (Last Reviewed 02/09/19 @ 17:50 by Sohail Bobo DO) Pancreatitis (Acute) Gallstones (Acute) Pancreatitis, gallstone (Acute) Cholecystitis (Acute) Anemia (Resolved) History of tonsillectomy (Resolved) H/O hernia repair (Resolved) History of DVT (deep vein thrombosis) (Resolved) DVT (deep venous thrombosis) (Resolved) Segmental and somatic dysfunction of pelvic region (Resolved) Segmental and somatic dysfunction of lumbar region (Resolved) Segmental and somatic dysfunction of thoracic region (Resolved) #1 gallstone pancreatitis-continue present treatment with fluids, analgesics, and antiemetics, encourage ambulation #2 cholecystectomy due to cholecystitis-postop day 0, encourage ambulation, IV fluids, analgesics, and antiemetics #3 hypokalemia-BMP will be rechecked tomorrow, potassium today was 3.4 which I do not feel a significant #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
--- NOTE | 2019-02-10 17:28 | PN.SURG_ITS ---
Patient Problems: Active and Suspected Problems (Last Updated 02/10/19 @ 14:31 by Krish Pretty DO) Pancreatitis (Acute) Gallstones (Acute) Pancreatitis, gallstone (Acute) Cholecystitis (Acute) Subjective: Pt comfortable, sl. amount of flatus, better than preop - Physical Exam Vitals/I&O's: Vital Signs Temp Pulse Resp BP Pulse Ox 97.8 F 70 15 135/68 H 94 02/10/19 15:10 02/10/19 15:10 02/10/19 15:10 02/10/19 15:10 02/10/19 15:10 Oxygen Flow Rate (L/min) 2 Oxygen Delivery Method Nasal Cannula Weight: 192 lb 14.472 oz Body Mass Index (BMI) 33.0 Intake and Output for Last 24 Hours 02/08/19 02/09/19 02/10/19 23:59 23:59 23:59 Intake Total 1600 / 1650 4358.33 / 4358.33 Output Total 1200 / 1200 Balance 1600 / 1250 3158.33 / 3158.33 Lungs: Clear to auscultation Abdomen: Soft, Non Tender Laboratory Results 02/10/19 05:33: WBC 10.2, RBC 3.82 L, Hgb 11.6 L, Hct 36.1 L, MCV 94.5, MCH 30.4, MCHC 32.1, RDW Std Deviation 43.7, RDW Coeff of Ronnie 12.6, Plt Count 251, MPV 9.9, Immature Gran % (Auto) 0.200, Neut % (Auto) 60.5, Lymph % (Auto) 26.4, [place] % (Auto) 7.9, Eos % (Auto) 4.5, Baso % (Auto) 0.5, Absolute Neuts (auto) 6.2, Absolute Lymphs (auto) 2.69, Nucleated RBC % 0 02/10/19 05:33: Sodium 144, Potassium 3.4 L, Chloride 113 H, Carbon Dioxide 24.0, Anion Gap 7, BUN 14, Creatinine 0.63, Estim Creat Clear Calc 46.50, Est GFR (MDRD) Af Amer 120, Est GFR (MDRD) Non-Af 99, BUN/Creatinine Ratio 22.2 H, Glucose 110 H, Calcium 8.5, Total Bilirubin 0.70, AST 73 H, ALT 131 H, Alkaline Phosphatase 91, Total Protein 6.0 L, Albumin 2.6 L, Globulin 3.4, Albumin/Globulin Ratio 0.8 L, Lipase 1554 H, TSH 0.01 L Current Medications Acetaminophen (Tylenol) 650 mg PO Q6H PRN PRN PRN Reason: Pain Score 1-5/Temp > 100.7 F Diazepam (Valium) 5 mg PO QHS PRN PRN Reason: anxiety Hydromorphone HCl (Dilaudid Inj) 0.5 mg IV Q4H PRN PRN PRN Reason: Pain Score 6-10/10 Last Admin: 02/10/19 14:05 Dose: 0.5 mg Documented by: Lactated Ringer's () 1,000 mls @ 100 mls/hr IV .Q10H [facility] Last Infusion: 02/10/19 13:23 Dose: 100 mls/hr Documented by: Levothyroxine Sodium (Synthroid) 50 mcg PO DAILY@0600 [facility] Last Admin: 02/10/19 05:09 Dose: Not Given Documented by: Lisinopril (Zestril) 10 mg PO DAILY [facility] Last Admin: 02/10/19 09:08 Dose: Not Given Documented by: Melatonin (Melatonin) 3 mg PO QHS PRN PRN PRN Reason: INSOMNIA Ondansetron HCl (Zofran) 4 mg IV Q8H PRN PRN PRN Reason: NAUSEA/VOMITING Sodium Chloride () 10 - 40 ml IV UD PRN PRN Reason: SALINE FLUSH Medical Necessity - Tobacco Use Smoking Status: Never smoker Assessment/Plan All Active Problems (Last Updated 02/10/19 @ 14:31 by Krish Pretty DO) Pancreatitis (Acute) Gallstones (Acute) Pancreatitis, gallstone (Acute) Cholecystitis (Acute) Anemia (Resolved) History of tonsillectomy (Resolved) H/O hernia repair (Resolved) History of DVT (deep vein thrombosis) (Resolved) DVT (deep venous thrombosis) (Resolved) Segmental and somatic dysfunction of pelvic region (Resolved) Segmental and somatic dysfunction of lumbar region (Resolved) Segmental and somatic dysfunction of thoracic region (Resolved) Concur with clears tonight Check labs tomorrow Anticipate discharge tomorrow
--- NOTE | 2019-02-10 18:28 | NURSING ---
attempted to wean O2, on room air, pt sats were 88-89%, replaced 2L NC and encouraged pt to utilize I/S.
[2019-02-10] MEDS: Acetaminophen 325 MG Tablet 650 MG PO (19:37)
[2019-02-11 01:48] VITALS: BP 130/92; PULSE 56; RESP 18; TEMP 36.8; O2SAT 98
[2019-02-11] MEDS: HYDROmorphone 0.5 MG/0.5 ML SYRINGE IV (01:55)
[2019-02-11] MEDS: 0.9% Saline Lock 10 ML Syringe IV (01:56)
[2019-02-11 02:00] VITALS: PULSE 56
[2019-02-11 02:05] VITALS: O2SAT 97
[2019-02-11 05:08] VITALS: PULSE 62; O2SAT 96
[2019-02-11] MEDS: Lactated Ringers 1,000 ML 100 ML IV (05:14)
[2019-02-11] MEDS: Levothyroxine 50 MCG Tablet PO (05:14)
--- NOTE | 2019-02-11 05:22 | NURSING ---
pt refuses to sit up in chair, states it is too hard on her back. ambulated one lap in hallway. pt tolerated well
[2019-02-11 06:06] LABS: Absolute Lymphocyte Count 1.37 X10^3/uL (0.83-4.51); Absolute Neutrophil Count 7.6 X10^3/uL (2.0-7.7); Basophil# 0.01 X10^3/uL; Basophil% 0.1 % (0-1); Hematocrit 34.8 % (37-47); Hemoglobin 11.3 g/dL (12.0-15.0); Lymphocyte # 1.37 X10^3/ul (4.0); Lymphocyte % 14.1 % (19-41); Mean Corp Hgb Conc 32.5 g/dL (32-36); Mean Corpuscular Hgb 30.5 pg (27.0-32.0); Mean Corpuscular Volume 94.1 fL (81-99); Mean Platelet Vol. 10.2 fl (6.2-12.0); Monocyte# 0.73 X10^3/uL; Monocyte% 7.5 % (0-10); NRBC Flagged by Analyzer 0 % (0-5); Neutrophil % 77.9 % (47-70); Platelet Count 254 K/mm3 (150-450); RBC Distribution Width CV 12.6 % (11.6-14.6); RBC Distribution Width SD 43.6 fl (35.1-43.9); White Blood Count 9.8 K/mm3 (4.4-11.0)
--- NOTE | 2019-02-11 06:07 | PN.SURG_ITS ---
Patient Problems: Active and Suspected Problems (Last Updated 02/10/19 @ 14:31 by Krish Pretty, ) Pancreatitis (Acute) Gallstones (Acute) Pancreatitis, gallstone (Acute) Cholecystitis (Acute) Subjective: Pt doing well, hungry, would like more food - Physical Exam Vitals/I&O's: Vital Signs Temp Pulse Resp BP Pulse Ox 98.2 F 62 18 130/92 H 96 02/11/19 01:48 02/11/19 05:08 02/11/19 01:48 02/11/19 01:48 02/11/19 05:08 Oxygen Flow Rate (L/min) 1 Oxygen Delivery Method Room Air Weight: 192 lb 14.472 oz Body Mass Index (BMI) 33.0 Intake and Output for Last 24 Hours 02/09/19 02/10/19 02/11/19 23:59 23:59 23:59 Intake Total 1600 / 1650 5313.33 / 5313.33 1740 / 1740 Output Total 1999 / 1999 800 / 800 Balance 1600 / 1250 3313.33 / 3313.33 940 / 940 General: Alert, Oriented x3, Cooperative, No apparent distress Lungs: Clear to auscultation Abdomen: Bowel Sounds Present, Soft, Non Tender, - - wounds clean and ddry Laboratory Results 02/10/19 05:33: WBC 10.2, RBC 3.82 L, Hgb 11.6 L, Hct 36.1 L, MCV 94.5, MCH 30.4, MCHC 32.1, RDW Std Deviation 43.7, RDW Coeff of Ronnie 12.6, Plt Count 251, MPV 9.9, Immature Gran % (Auto) 0.200, Neut % (Auto) 60.5, Lymph % (Auto) 26.4, [place] % (Auto) 7.9, Eos % (Auto) 4.5, Baso % (Auto) 0.5, Absolute Neuts (auto) 6.2, Absolute Lymphs (auto) 2.69, Nucleated RBC % 0 02/10/19 05:33: Sodium 144, Potassium 3.4 L, Chloride 113 H, Carbon Dioxide 24.0, Anion Gap 7, BUN 14, Creatinine 0.63, Estim Creat Clear Calc 46.50, Est GFR (MDRD) Af Amer 120, Est GFR (MDRD) Non-Af 99, BUN/Creatinine Ratio 22.2 H, Glucose 110 H, Calcium 8.5, Total Bilirubin 0.70, AST 73 H, ALT 131 H, Alkaline Phosphatase 91, Total Protein 6.0 L, Albumin 2.6 L, Globulin 3.4, Albumin/Globulin Ratio 0.8 L, Lipase 1554 H, TSH 0.01 L 02/11/19 05:13: WBC Pending, RBC Pending, Hgb Pending, Hct Pending, MCV Pending, MCH Pending, MCHC Pending, RDW Std Deviation Pending, RDW Coeff of Ronnie Pending, Plt Count Pending, Neut % (Auto) Pending, Absolute Neuts (auto) Pending 02/11/19 05:13: Sodium Pending, Potassium Pending, Chloride Pending, Carbon Dioxide Pending, Anion Gap Pending, BUN Pending, Creatinine Pending, Est GFR (MDRD) Af Amer Pending, Est GFR (MDRD) Non-Af Pending, BUN/Creatinine Ratio Pending, Glucose Pending, Calcium Pending, Total Bilirubin Pending, AST Pending, ALT Pending, Alkaline Phosphatase Pending, Total Protein Pending, Albumin Pending, Lipase Pending Current Medications Acetaminophen (Tylenol) 650 mg PO Q6H PRN PRN PRN Reason: Pain Score 1-5/Temp > 100.7 F Last Admin: 02/10/19 19:37 Dose: 650 mg Documented by: Diazepam (Valium) 5 mg PO QHS PRN PRN Reason: anxiety Hydromorphone HCl (Dilaudid Inj) 0.5 mg IV Q4H PRN PRN PRN Reason: Pain Score 6-10/10 Last Admin: 02/11/19 01:55 Dose: 0.5 mg Documented by: Lactated Ringer's () 1,000 mls @ 100 mls/hr IV .Q10H [facility] Last Admin: 02/11/19 05:14 Dose: 100 mls/hr Documented by: Levothyroxine Sodium (Synthroid) 50 mcg PO DAILY@0600 [facility] Last Admin: 02/11/19 05:14 Dose: 50 mcg Documented by: Lisinopril (Zestril) 10 mg PO DAILY [facility] Last Admin: 02/10/19 09:08 Dose: Not Given Documented by: Melatonin (Melatonin) 3 mg PO QHS PRN PRN PRN Reason: INSOMNIA Ondansetron HCl (Zofran) 4 mg IV Q8H PRN PRN PRN Reason: NAUSEA/VOMITING Sodium Chloride () 10 - 40 ml IV UD PRN PRN Reason: SALINE FLUSH Last Admin: 02/11/19 01:56 Dose: 10 ml Documented by: Medical Necessity - Tobacco Use Smoking Status: Never smoker Assessment/Plan All Active Problems (Last Updated 02/10/19 @ 14:31 by Krish Pretty DO) Pancreatitis (Acute) Gallstones (Acute) Pancreatitis, gallstone (Acute) Cholecystitis (Acute) Anemia (Resolved) History of tonsillectomy (Resolved) H/O hernia repair (Resolved) History of DVT (deep vein thrombosis) (Resolved) DVT (deep venous thrombosis) (Resolved) Segmental and somatic dysfunction of pelvic region (Resolved) Segmental and somatic dysfunction of lumbar region (Resolved) Segmental and somatic dysfunction of thoracic region (Resolved) Labs pending but if improved then anticipate discharge today Will advance to fulls while awaiting labs
[2019-02-11 06:37] LABS: ALB/GLOB Ratio 0.8 RATIO (0.9-2.4); AST(SGOT) 56 U/L (15-37); Alanine Aminotransfer ALT/SGPT 124 U/L (13-56); Albumin, Serum 2.7 g/dL (3.2-5.0); Alkaline Phosphatase 86 U/L (45-117); Anion Gap 7 (5-15); BUN 11 mg/dL (7-18); BUN/Creat Ratio 16.7 RATIO (10-20); Calcium,Total 9.1 mg/dL (8.5-10.1); Chloride 112 mmol/L (98-107); Creatinine, Serum 0.66 mg/dL (0.55-1.02); EST Glomerular Filtration Rate 95 mL/min (>60); Est Glom Filt Rate - Afr Amer 115 mL/min (>60); Globulin 3.6 g/dL (2.2-4.2); Glucose 155 mg/dL (74-106); Lipase 66 U/L (73-393); Potassium 3.9 mmol/L (3.5-5.1); Protein, Total 6.3 g/dL (6.4-8.2); Sodium Level 145 mmol/L (136-145)
--- NOTE | 2019-02-11 09:31 | DCINST_ITS ---
- Discharge Diagnoses Current Active Problems: Current Active and Chronic Problems (Last Updated 02/10/19 @ 14:31 by Krish Pretty DO) Pancreatitis (Acute) Gallstones (Acute) Pancreatitis, gallstone (Acute) Cholecystitis (Acute) Cholelithiasis with chronic cholecystitis (Chronic) You will use the following diet at home:: Regular Your food should be the consistency of: Regular Discharge Activity: May Not Drive - for 3-5 days or while taking narcotic pain medicine. May shower in (days): 1 Call your doctor if your incision/area has: Continuous Slow Oozing, Sudden Increased Bleeding, Increased Pain/ Swelling, Increased Redness, Foul Smelling Discharge Call your doctor if you observe: Fever of 101 or Higher Suture Line Care: Avoid Pulling/Pushing, Avoid Pinching/Bending Additional Dressing/Incision Instructions:: Change or remove dressing in 4 days. Leave steri-strips in place for 1 week. Allergies/Adverse Reactions: Allergies adhesive Allergy (Verified 02/09/19 15:25) Unknown aspirin [From Aggrenox] Allergy (Verified 02/09/19 15:25) Unknown benzocaine [From Cetacaine] Allergy (Verified 02/09/19 15:25) Unknown butamben [From Cetacaine] Allergy (Verified 02/09/19 15:25) Unknown cortisone [Cortisone] Allergy (Verified 02/09/19 15:25) Unknown dipyridamole [From Aggrenox] Allergy (Verified 02/09/19 15:25) Unknown lansoprazole [From Prevacid] Allergy (Verified 02/09/19 15:25) Unknown latex Allergy (Verified 02/09/19 15:25) Unknown meclizine Allergy (Verified 02/09/19 15:25) Unknown methylprednisolone acetate [From Depo-Medrol] Allergy (Verified 02/09/19 15:25) Unknown metoprolol Allergy (Verified 02/09/19 15:25) Unknown omeprazole [From Prilosec] Allergy (Verified 02/09/19 15:25) Unknown omeprazole magnesium [From Prilosec] Allergy (Verified 02/09/19 15:25) Unknown oxybutynin chloride [From Ditropan] Allergy (Verified 02/09/19 15:25) Unknown povidone-iodine [From Betadine] Allergy (Verified 02/09/19 15:25) Unknown soap [From Betadine] Allergy (Verified 02/09/19 15:25) Unknown sulfamethoxazole [From Bactrim] Allergy (Verified 02/09/19 15:25) Unknown tegaserod [From Zelnorm] Allergy (Verified 02/09/19 15:25) Hives tegaserod hydrogen maleate [From Zelnorm] Allergy (Verified 02/09/19 15:25) Unknown tetracaine [From Cetacaine] Allergy (Verified 02/09/19 15:25) Unknown tolterodine tartrate [From Detrol] Allergy (Verified 02/09/19 15:25) Unknown trimethoprim [From Bactrim] Allergy (Verified 02/09/19 15:25) Unknown codeine Adverse Reaction (Verified 02/09/19 15:25) Unknown mirabegron [From Myrbetriq] Adverse Reaction (Verified 02/09/19 15:25) Other tizanidine Adverse Reaction (Verified 02/09/19 15:25) Other DEPOMEDROL Allergy (Uncoded 02/09/19 15:25) Angioedema PAPER TAPE Adverse Reaction (Uncoded 02/09/19 15:25) Rash Medications to take at Discharge Gabapentin [Neurontin] 300 mg PO QHS 01/11/14 Levothyroxine [Synthroid] 50 mcg PO DAILY 01/11/14 Lisinopril [Prinivil] 10 mg PO DAILY 06/02/18 diazepam 5 mg tablet 5 mg PO QHS PRN 01/13/19 Acetaminophen [Tylenol] 500 - 1,000 mg PO QHS PRN PRN 02/09/19 Aspirin E.C. [Ecotrin] 81 mg PO DAILY@0800 02/09/19 Cholecalciferol (Vitamin D3) [Vitamin D3] 5,000 unit PO DAILY 02/09/19 Hydrocodone Bitart/Apap 5-325 [[place] 5MG-325MG] 1 tab PO Q6H PRN PRN 2 Days #8 tab 02/10/19 The following prescriptions were given: Hydrocodone Bitart/Apap 5-325 [[place] 5MG-325MG] 1 tab PO Q6H PRN PRN 2 Days #8 tab PRN Reason: Pain Transmission Status: Received by [id number] Primary Care Physician: Miryam Riojas MD [Primary Care Provider] - Please follow up with your Primary Care Physician in: in 5-7 days Test Results: Test results from this visit will be discussed in further detail at your follow- up appointment, if applicable. Please Follow Up With: Davon Infante MD - [phone] When: Call to make an appointment to be seen in about 10 days. Proposed Discharge Date: 02/11/19
--- NOTE | 2019-02-11 09:33 | DS.PCM_ITS ---
Discharge Date and Diagnosis - Problem List Patient Problems: Active and Suspected Problems (Last Updated 02/10/19 @ 14:31 by Krish Pretty DO) Pancreatitis (Acute) Gallstones (Acute) Pancreatitis, gallstone (Acute) Cholecystitis (Acute) Date of Admission: 02/09/19 Date of Discharge: 02/11/19 - Primary Discharge Diagnosis Active and Suspected Problems (Last Updated 02/10/19 @ 14:31 by Krish Pretty DO) Pancreatitis (Acute) Gallstones (Acute) Pancreatitis, gallstone (Acute) Cholecystitis (Acute) - Secondary Discharge Diagnosis Chronic Problems (Last Updated 02/10/19 @ 14:31 by Krish Pretty DO) Cholelithiasis with chronic cholecystitis (Chronic) Environmental allergies (Chronic) Arthritis (Chronic) Cataracts, bilateral (Chronic) IBS (irritable bowel syndrome) (Chronic) Osteoarthritis (Chronic) History of atrial dilatation (Chronic) Fibromyalgia (Chronic) Dysmetabolic syndrome X (Chronic) Hypothyroidism (Chronic) Essential hypertension (Chronic) DDD (degenerative disc disease), lumbar (Chronic) PAD (peripheral artery disease) (Chronic) Bilateral LE small vessel disease GERD (gastroesophageal reflux disease) (Chronic) Hospital Course and Treatment Imaging Results: Clinical Impression(s) from Imaging Studies Gallbladder Ultrasound 02/09/19 15:57 IMPRESSION: Multiple gallstones. Gallbladder wall thickening. Mild biliary dilatation. Electronically Signed: Deepak Mendez MD at 17:13 EST , Service support , Summary of Care Provided: The patient is a 68 year old F admitted with abdominal pain diagnosed with gallstone pancreatitis 1. Gallstone pancreatitis admitted to regular nursing floor consult placed to general surgery patient underwent scopic cholecystectomy with cholangiograms on 02/10/2019. Patient condition did remain stable after the procedure and discharge home with plans for patient to follow-up with general surgery 2. Hypokalemia corrected per protocol 3. Degenerative joint disease pain meds as needed 4. Hypothyroidism: On levothyroxine did continue 5. Essential hypertension did continue patient pain meds Patient Problems: Active and Suspected Problems (Last Updated 02/10/19 @ 14:31 by Krish Pretty DO) Pancreatitis (Acute) Gallstones (Acute) Pancreatitis, gallstone (Acute) Cholecystitis (Acute) - Physical Exam Vitals/I&O's: Vital Signs Temp Pulse Resp BP Pulse Ox 98.2 F 62 18 130/92 H 96 02/11/19 01:48 02/11/19 05:08 02/11/19 01:48 02/11/19 01:48 02/11/19 05:08 Oxygen Flow Rate (L/min) 1 Oxygen Delivery Method Room Air Weight: 87.5 kg Body Mass Index (BMI) 33.0 Intake and Output for Last 24 Hours 02/09/19 02/10/19 02/11/19 23:59 23:59 23:59 Intake Total 1600 / 1650 5313.33 / 5313.33 1740 / 1740 Output Total 1999 / 1999 800 / 800 Balance 1600 / 1250 3313.33 / 3313.33 940 / 940 General: Alert HEENT: Atraumatic Lungs: Diminished Cardiovascular: Regular rate, Regular Rhythm Psych/Mental Status: Flat Affect Laboratory Results 02/11/19 05:13: WBC 9.8, RBC 3.70 L, Hgb 11.3 L, Hct 34.8 L, MCV 94.1, MCH 30.5, MCHC 32.5, RDW Std Deviation 43.6, RDW Coeff of Ronnie 12.6, Plt Count 254, MPV 10.2, Immature Gran % (Auto) 0.400, Neut % (Auto) 77.9 H, Lymph % (Auto) 14.1 L, [place] % (Auto) 7.5, Eos % (Auto) 0.0, Baso % (Auto) 0.1, Absolute Neuts (auto) 7.6, Absolute Lymphs (auto) 1.37, Nucleated RBC % 0 02/11/19 05:13: Sodium 145, Potassium 3.9, Chloride 112 H, Carbon Dioxide 26.0, Anion Gap 7, BUN 11, Creatinine 0.66, Estim Creat Clear Calc 46.50, Est GFR (MDRD) Af Amer 115, Est GFR (MDRD) Non-Af 95, BUN/Creatinine Ratio 16.7, Glucose 155 H, Calcium 9.1, Total Bilirubin 0.40, AST 56 H, ALT 124 H, Alkaline Phosphatase 86, Total Protein 6.3 L, Albumin 2.7 L, Globulin 3.6, Albumin/Globulin Ratio 0.8 L, Lipase 66 L Current Medications Acetaminophen (Tylenol) 650 mg PO Q6H PRN PRN PRN Reason: Pain Score 1-5/Temp > 100.7 F Last Admin: 02/10/19 19:37 Dose: 650 mg Documented by: Diazepam (Valium) 5 mg PO QHS PRN PRN Reason: anxiety Hydromorphone HCl (Dilaudid Inj) 0.5 mg IV Q4H PRN PRN PRN Reason: Pain Score 6-10/10 Last Admin: 02/11/19 01:55 Dose: 0.5 mg Documented by: Lactated Ringer's () 1,000 mls @ 100 mls/hr IV .Q10H COUNTS INCLUDE 234 BEDS AT THE [facility] Last Admin: 02/11/19 05:14 Dose: 100 mls/hr Documented by: Levothyroxine Sodium (Synthroid) 50 mcg PO DAILY@0600 COUNTS INCLUDE 234 BEDS AT THE [facility] Last Admin: 02/11/19 05:14 Dose: 50 mcg Documented by: Lisinopril (Zestril) 10 mg PO DAILY COUNTS INCLUDE 234 BEDS AT THE [facility] Last Admin: 02/10/19 09:08 Dose: Not Given Documented by: Melatonin (Melatonin) 3 mg PO QHS PRN PRN PRN Reason: INSOMNIA Ondansetron HCl (Zofran) 4 mg IV Q8H PRN PRN PRN Reason: NAUSEA/VOMITING Sodium Chloride () 10 - 40 ml IV UD PRN PRN Reason: SALINE FLUSH Last Admin: 02/11/19 01:56 Dose: 10 ml Documented by: Discharge Diet: Light diet - advance as tolerated - if you have questions about your diet instructions, please talk to you doctor. Discharge Activity: May Not Drive - for 3-5 days or while taking narcotic pain medicine. May shower in (days): 1 Call your doctor if your incision/area has: Continuous Slow Oozing, Sudden Increased Bleeding, Increased Pain/ Swelling, Increased Redness, Foul Smelling Discharge Call your doctor if you observe: Fever of 101 or Higher Suture Line Care: Avoid Pulling/Pushing, Avoid Pinching/Bending Additional Dressing/Incision Instructions:: Change or remove dressing in 4 days. Leave steri-strips in place for 1 week. Home Medications: Medications to take at Discharge Gabapentin [Neurontin] 300 mg PO QHS 01/11/14 Levothyroxine [Synthroid] 50 mcg PO DAILY 01/11/14 Lisinopril [Prinivil] 10 mg PO DAILY 06/02/18 diazepam 5 mg tablet 5 mg PO QHS PRN 01/13/19 Acetaminophen [Tylenol] 500 - 1,000 mg PO QHS PRN PRN 02/09/19 Aspirin E.C. [Ecotrin] 81 mg PO DAILY@0800 02/09/19 Cholecalciferol (Vitamin D3) [Vitamin D3] 5,000 unit PO DAILY 02/09/19 Hydrocodone Bitart/Apap 5-325 [[place]am 5MG-325MG] 1 tab PO Q6H PRN PRN 2 Days #8 tab 02/10/19 Following Prescrptions Were Given to Patient: Hydrocodone Bitart/Apap 5-325 [[place] 5MG-325MG] 1 tab PO Q6H PRN PRN 2 Days #8 tab PRN Reason: Pain Transmission Status: Received by [id number] Primary Care Physician: Miryam Riojas MD [Primary Care Provider] - Please follow up with your Primary Care Physician in: in 5-7 days Please Follow Up With: Davon Infante MD - [phone] When: Call to make an appointment to be seen in about 10 days. Disposition: Home Minutes spent on discharge:: 35 Patient Condition:: Stable Medical Necessity - Tobacco Use Smoking Status: Never smoker Meaningful Use Info Meaningful Use Diagnoses (Choose all that apply): None applicable Code Visit Inpatient E&M: 91400 Disch Hosp
[2019-02-11 09:45] VITALS: BP 143/73; PULSE 75; RESP 16; TEMP 37; O2SAT 96
[2019-02-11] MEDS: Lisinopril 10 MG Tablet PO (09:48)
[2019-02-11 11:17] VITALS: O2SAT 95
== END 2019-02-11 12:43 | disposition home or self-care (01) | DRG 417 ==
LOC: ED 17:11 → MS3 17:51
PROVIDERS: Internal Medicine; Surgery; Emergency Provider Emergency Medicine; Family Provider Internal Medicine; PCP Internal Medicine; Visit Provider Internal Medicine
PROC: 0FT44ZZ Resection of Gallbladder, Percutaneous Endoscopic Approach (ICD-10-PCS; CPT 47610; principal; 2019-02-10 09:45)
DX: K80.10 Calculus of gallbladder with chronic cholecystitis without obstruction (principal); K85.10 Biliary acute pancreatitis without necrosis or infection; Z79.899 Other long term (current) drug therapy; D64.9 Anemia, unspecified; M19.90 Unspecified osteoarthritis, unspecified site; Z86.73 Personal history of transient ischemic attack (TIA), and cerebral infarction without residual deficits; Z86.718 Personal history of other venous thrombosis and embolism; M79.7 Fibromyalgia; E03.9 Hypothyroidism, unspecified; I10 Essential (primary) hypertension; I73.9 Peripheral vascular disease, unspecified; K21.9 Gastro-esophageal reflux disease without esophagitis; Z79.82 Long term (current) use of aspirin; K22.70 Barrett's esophagus without dysplasia; F32.9 Major depressive disorder, single episode, unspecified; E87.6 Hypokalemia; M51.36 Other intervertebral disc degeneration, lumbar region
CPT/HCPCS: 36415; 71045; 74177; 74300; 76705; 80053; 83605; 83690; 84443; 84484; 85025; 88304; 93005; 96361; 96374; 96375; 99251; 99285; J7030; J7120; Q9967; A4216; G0463; J2405; J3490

== ENCOUNTER → 2019-02-10 09:45 | Outpatient (CLI) | payer MEDICARE, BC, SELFPAY ==
[2019-02-08 23:13] VITALS: BMI 33.9
--- NOTE | 2019-02-10 10:10 | RAD_ITS ---
CLINICAL HISTORY: Female, 68 years old. PROCEDURE: CHOLANGIOGRAM - CONSENT: SEDATION: FLUOROSCOPY TIME (if supplied): (1.1 s) minutes/seconds Contrast was injected through the cystic duct in the O R. There is dilatation of the intra and extrahepatic biliary system including the common bile duct. There is a small filling defect noted in the distal CBD at the ampulla that could represent small stone causing the dilatation. RAD/Cholangiogram/ O R,Initial IMPRESSION: Small filling defect distal CBD at the ampulla causing dilatation of the intrahepatic biliary system most likely represent a stone. ERCP probably would have. Electronically Signed: Saleem Gregorio, at 11:36 EST Tel , Service support ,
== END ==
PROVIDERS: Family Provider Internal Medicine; PCP Internal Medicine; Visit Provider Surgery
DX: K83.8 Other specified diseases of biliary tract (principal)
CPT/HCPCS: 74300; 76000

== ENCOUNTER → 2019-04-13 | Outpatient (CLI) | payer MEDICARE, BC, SELFPAY ==
[2019-04-08 11:13] VITALS: BMI 31.4
--- NOTE | 2019-04-13 07:07 | ECHOD_ITS ---
Reason For Study: DYSPNEA Procedure This was a 2D Doppler, Color Flow transthoracic echocardiogram. The study was technically difficult. Exam performed in department. Left Ventricle Normal LV size. Left ventricular systolic function is normal. The estimated ejection fraction is 65 %. No evidence for diastolic dysfunction. No regional wall motion abnormalities noted. Right Ventricle Normal RV size. Normal systolic function. Atria Normal left atrium. Normal right atrium. No doppler evidence for ASD. Mitral Valve There is no mitral annular calcification. Normal mitral valve. Trivial mitral valve insufficiency. Tricuspid Valve Normal tricuspid valve. Trivial tricuspid valve insufficiency. Right ventricular systolic pressure estimated to be 11 mmHg. Aortic Valve Trisinus/trileaflet aortic valve. Normal aortic valve. Trivial aortic valve insufficiency. Pulmonic Valve The pulmonic valve is not well visualized. Great Vessels Normal sized aortic root. Pericardium/Pleural No pericardial effusion. MMode/2D Measurements & Calculations LVIDd: 4.5 cm IVSd: 0.74 cm Ao root diam: 3.8 cm LVIDs: 2.9 cm LVPWd: 0.93 cm RVDd: 3.6 cm FS: 35.0 % LAV(MOD-bp): 27.4 ml LVAd ap4: 24.4 cm2 SV(MOD-sp4): 40.7 ml LAV(MOD-bp) Indexed: 14.5 ml/m2 EDV(MOD-sp4): 63.7 ml LAV(MOD-sp2): 29.7 ml EDV(sp4-el): 65.4 ml LAV(MOD-sp4): 20.2 ml LVAs ap4: 12.6 cm2 ESV(MOD-sp4): 23.0 ml ESV(sp4-el): 22.5 ml EF(MOD-sp4): 63.9 % EF(sp4-el): 65.6 % SV(sp4-el): 42.9 ml LA A4 area: 9.7 cm2 LA dimension(2D): 4.1 cm RA A4 area: 18.7 cm2 Time Measurements MV dec time: 0.37 sec Doppler Measurements & Calculations MV E max jason: 56.4 cm/sec Lat Peak E' Jason: 9.2 cm/sec Med Peak E' Jason: 7.2 cm/sec MV A max jason: 59.6 cm/sec E/E' lat: 6.1 E/E' med: 7.9 MV E/A: 0.95 Ao V2 max: 131.2 cm/sec AI max jason: 367.2 cm/sec LV V1 max: 122.4 cm/sec Ao max P.9 mmHg AI max P.9 mmHg LV V1 max P.0 mmHg AI dec slope: 147.1 cm/sec2 AI P1/2t: 731.3 msec TR max jason: 143.2 cm/sec TR max P.2 mmHg Interpretation Summary The study was technically difficult. Left ventricular systolic function is normal. The estimated ejection fraction is 65 %. Trivial mitral valve insufficiency. Trivial tricuspid valve insufficiency. Trivial aortic valve insufficiency. Right ventricular systolic pressure estimated to be 11 mmHg. No evidence for diastolic dysfunction. Ordering Physician: Chito Lewis Referring Physician: PAULO SCOTT Performed By: Isaura Gerard, RDCS, RVT
--- NOTE | 2019-04-13 11:55 | STRESSREP ---
Stress Test Report Date: 04-13-2019 Procedure: Pharmacologic stress nuclear imaging study Indications: Shortness of breath/dyspnea on exertion Consent: Per the patient Procedure: The patient underwent pharmacologic (Regadenoson) evaluation with a peak heart rate of the 85 beats per minute (56 %predicted maximal heart rate) and a peak blood pressure of 144/84 mmHg. The baseline ECG demonstrated sinus bradycardia; low voltage QRS; nonspecific T wave abnormality. The peak pharmacologic ECG demonstrated no obvious ECG changes. There were no cardiac dysrhythmias pretest, during pharmacologic infusion, or recovery. There was no complaint of chest discomfort during pharmacologic infusion or recovery. The examination was discontinued secondary to completion of protocol. Impression: 1. Pharmacologic (Regadenoson) evaluation 2. Peak pharmacologic ECG with no obvious ECG changes. 3. There were no cardiac dysrhythmias pretest, during pharmacologic infusion, or recovery. 4. Nuclear images pending Myocardial perfusion imaging study: Technique: The patient was injected with 11.2 millicuries of technetium 99m Cardiolite and subsequently rest SPECT Cardiolite nuclear imaging was obtained in the horizontal long, vertical long, and short axis views. The patient underwent pharmacologic (Regadenoson) evaluation with a peak heart rate of 85 beats per minute (56 % percent predicted maximal heart rate) and a peak blood pressure of 144/84 mmHg. The patient was injected with 32.6 millicuries of technetium 99m Cardiolite and subsequently stress SPECT Cardiolite nuclear imaging was obtained in the horizontal long, vertical long, and short axis views. A gated Cardiolite study at peak stress was obtained. Interpretation: Rest and stress SPECT Cardiolite nuclear imaging status post realignment, normalization, and attenuation correction demonstrate at rest a small area of subtle diminished tracer uptake near the distal anteroseptal segments which status post stress appears to improve/normalize. There is end systolic thickening and brightening. The gated Cardiolite study demonstrates myocardial thickening and inward wall motion. The reported LVEF is 82 %. Impression: 1. Rest and stress SPECT Cardiolite nuclear imaging demonstrate myocardial perfusion changes appearing compatible with shifting soft tissue attenuation/artifact being more prominent at rest as opposed to stress with no myocardial perfusion changes considered diagnostic for associated stress-induced myocardial ischemia. 2. The gated Cardiolite study reports an LVEF of 82 %. This note was generated with [employer] software. It may contain incorrect words, spelling, and punctuation that were not noted in checking the note before signing.
== END | disposition home or self-care (01) ==
LOC: CVS 07:07
PROVIDERS: PCP Internal Medicine; Referring Provider Internal Medicine Cardiovascular Disease; Visit Provider Internal Medicine Cardiovascular Disease
DX: I25.10 Atherosclerotic heart disease of native coronary artery without angina pectoris (principal); R06.02 Shortness of breath
CPT/HCPCS: 78452; 93017; 93306; A9500; A4216; J2785

== ENCOUNTER → 2019-09-13 | Outpatient (CLI) | payer MEDICARE, BC, SELFPAY ==
[2019-08-12 09:03] VITALS: BMI 32.5
--- NOTE | 2019-09-14 13:22 | PFT ---
INTRODUCTION: The patient is a 69-year-old female that presents for pulmonary function studies secondary to a diagnosis of shortness of breath. Respiratory therapy reports good patient effort. Bronchodilators were used during testing. INTERPRETATION: Forced expiration spirometry demonstrates no evidence of a large airways obstructive ventilatory defect. There was a significant response to aerosolized bronchodilators noted. Spirograms are of good quality and plateau gradually indicating slow emptying of the lungs. Body plus tomography was performed and reveals an elevated RV to 135% of predicted. Diffusing capacity by single breath CO is within normal limits. IMPRESSION: Subtle stigmata of small airways disease with significant bronchodilator response.
== END | disposition home or self-care (01) ==
LOC: PSN 08:00
PROVIDERS: PCP Internal Medicine; Referring Provider Internal Medicine Critical Care Medicine; Visit Provider Internal Medicine Critical Care Medicine
DX: R06.02 Shortness of breath (principal)
CPT/HCPCS: 94060; 94726; 94729

== ENCOUNTER → 2019-09-14 | Outpatient (CLI) | payer MEDICARE, BC, SELFPAY ==
[2019-08-12 09:03] VITALS: BMI 32.5
[2019-09-14 10:15] VITALS: PULSE 100; PULSE 80; PULSE 91; PULSE 92; PULSE 93; PULSE 97; PULSE 98; PULSE 99; O2SAT 94; O2SAT 95; O2SAT 96
--- NOTE | 2019-09-15 08:44 | PCM.PSN.6M ---
PSN 6 Minute Walk Test - 6 Minute Walk Test 6 Minute Walk Test: 6 Minute Walk Test PSN:6-Minute Walk Test Start: 09/14/19 10:14 Freq: Status: Active Protocol: RESP.6MINW Document 09/14/19 10:15 MAINE (Rec: 09/14/19 10:17 MAINE [id number]) 6 Minute Walk Test Date Performed 09/14/19 Time Performed 09:45 Height 5 ft 4 in Weight: 185 lb Weight in Pounds 185.[address]: [place] Assistive device used: None Pre-test Oxygen Delivery Method Room Air Pulse Ox (%) 96 Pulse Rate (60-100 beats/min) 91 Dyspnea Sarita Scale (0-10) 0 Exertion Sarita Scale (6-20) 6 1st minute Oxygen Delivery Method Room Air Pulse Ox (%) 95 Pulse Rate (60-100 beats/min) 92 2nd minute Oxygen Delivery Method Room Air Pulse Ox (%) 94 Pulse Rate (60-100 beats/min) 93 3rd minute Oxygen Delivery Method Room Air Pulse Ox (%) 96 Pulse Rate (60-100 beats/min) 97 4th minute Oxygen Delivery Method Room Air Pulse Ox (%) 96 Pulse Rate (60-100 beats/min) 98 5th minute Oxygen Delivery Method Room Air Pulse Ox (%) 95 Pulse Rate (60-100 beats/min) 100 6th minute Oxygen Delivery Method Room Air Pulse Ox (%) 96 Pulse Rate (60-100 beats/min) 99 Dyspnea Sarita Scale (0-10) 3 Exertion Sarita Scale (6-20) 13 Post-test Oxygen Delivery Method Room Air Pulse Ox (%) 96 Pulse Rate (60-100 beats/min) 80 Full Laps Walked 12 Partial Lap, Number of Tiles Walked 51 Total Distance Walked (ft) 759 - Interpretation Interpretation: The patient ambulated 759 feet over the course of 6 minutes beginning on room air without assistive devices or breaks. Pretesting oxygen saturation was noted to be 96% on room air. With ambulation, the ysabel oxygen saturation was 94%. Although there was evidence of impaired walk distance, there was no significant exertional oxygen desaturation. - Recommendations Recommendations: There is no indication for the use of supplemental oxygen at this time.
== END | disposition home or self-care (01) ==
LOC: PSN 09:34
PROVIDERS: PCP Internal Medicine; Referring Provider Internal Medicine Critical Care Medicine; Visit Provider Internal Medicine Critical Care Medicine
DX: R06.02 Shortness of breath (principal)
CPT/HCPCS: 94618

== ENCOUNTER 2020-06-17 11:32 | Emergency (ER) | payer OTHER, MEDICARE, BC, SELFPAY ==
[2020-06-15 13:46] VITALS: BMI 33.1
[2020-06-17 11:35] VITALS: BP 141/99; PULSE 78; PULSE 79; RESP 16; RESP 17; TEMP 36.1; O2SAT 97; BMI 31.9
--- NOTE | 2020-06-17 11:57 | ED.VIS.GEN ---
History of Present Illness Chief Complaint: Fall Informant: Patient Narrative: Patient is a 70-year-old female who presents to the [facility] for left shoulder blade pain and left foot pain. She had a fall on . Her pain has not been significantly improving. She does not believe she hit her head at that time. She denies any headache. She was having some neck pain associated with this as well. She denies any chest pain or shortness of breath. No abdominal pain or nausea/vomiting. She has been able to ambulate on the foot but it does cause pain on the dorsal aspect. Any movement of the arm seems to aggravate her shoulder blade pain as well. She denies any weakness or loss of sensation in the extremity. She is not on blood thinners. She only takes a baby aspirin daily. Past Medical History - Allergies and Home Meds Allergies/Adverse Reactions: Allergies adhesive Allergy (Verified 06/17/20 11:34) Unknown aspirin [From Aggrenox] Allergy (Verified 06/17/20 11:34) Unknown benzocaine [From Cetacaine] Allergy (Verified 06/17/20 11:34) Unknown butamben [From Cetacaine] Allergy (Verified 06/17/20 11:34) Unknown cortisone [Cortisone] Allergy (Verified 06/17/20 11:34) Unknown dipyridamole [From Aggrenox] Allergy (Verified 06/17/20 11:34) Unknown lansoprazole [From Prevacid] Allergy (Verified 06/17/20 11:34) Unknown latex Allergy (Verified 06/17/20 11:34) Unknown meclizine Allergy (Verified 06/17/20 11:34) Unknown methylprednisolone acetate [From Depo-Medrol] Allergy (Verified 06/17/20 11:34) Unknown metoprolol Allergy (Verified 06/17/20 11:34) Unknown omeprazole [From Prilosec] Allergy (Verified 06/17/20 11:34) Unknown omeprazole magnesium [From Prilosec] Allergy (Verified 06/17/20 11:34) Unknown oxybutynin chloride [From Ditropan] Allergy (Verified 06/17/20 11:34) Unknown povidone-iodine [From Betadine] Allergy (Verified 06/17/20 11:34) Unknown soap [From Betadine] Allergy (Verified 06/17/20 11:34) Unknown sulfamethoxazole [From Bactrim] Allergy (Verified 06/17/20 11:34) Unknown tegaserod [From Zelnorm] Allergy (Verified 06/17/20 11:34) Hives tegaserod hydrogen maleate [From Zelnorm] Allergy (Verified 06/17/20 11:34) Unknown tetracaine [From Cetacaine] Allergy (Verified 06/17/20 11:34) Unknown tolterodine tartrate [From Detrol] Allergy (Verified 06/17/20 11:34) Unknown trimethoprim [From Bactrim] Allergy (Verified 06/17/20 11:34) Unknown codeine Adverse Reaction (Verified 06/17/20 11:34) Unknown mirabegron [From Myrbetriq] Adverse Reaction (Verified 06/17/20 11:34) Other tizanidine Adverse Reaction (Verified 06/17/20 11:34) Other vaccine adjuvant system, AS01B liposomal [From Shingrix (PF)] Adverse Reaction (Verified 06/17/20 11:35) Rash varicella-zoster virus glycoprotein E, recombinant [From Shingrix (PF)] Adverse Reaction (Verified 06/17/20 11:35) Rash DEPOMEDROL Allergy (Uncoded 06/15/20 13:47) Angioedema PAPER TAPE Adverse Reaction (Uncoded 06/15/20 13:47) Rash Primary Care Physician: Miryam Riojas MD [Primary Care Provider] - 3-5 Days if not improving Prior records reviewed: Yes Surgical History: noncontributory Review of Systems All systems negative except as indicated General: Denies: Chills, Fever, Sweats Eyes: Denies: Visual changes - bilaterally, Diplopia ENT: Denies: Rhinorrhea, Sore throat Cardiovascular: Denies: Chest pain, Palpitations Respiratory: Denies: Dyspnea, Cough, Dyspnea on exertion Gastrointestinal: Denies: Abdominal pain, Nausea, Vomiting, Diarrhea Genitourinary: Denies: Dysuria, Hematuria, Frequency Musculoskeletal: Reports: Neck pain, Extremity Pain. Denies: Back pain, Swelling Skin: Denies: Rash, Wounds Neurological: Denies: Headache, Weakness, Numbness Physical Exam Vital Signs/Narrative: Vital Signs Temp Pulse Resp BP Pulse Ox 06/17/20 11:35 97.0 F L 78 16 141/99 H 97 Inital Vital Signs reviewed: Yes General: Well nourished, Well developed, No Acute Distress Head: Normocephalic, Atraumatic Eyes: Perrl, EOMI ENT: Moist mucous membranes, No rhinorrhea Neck: Supple, Nontender Cardiovascular: Regular rate, Regular rhythm, No murmurs Respiratory: No distress, CTA bilaterally, Chest nontender Abdomen: Soft, Nontender, Nondistended Back: Nontender, Normal Inspection Extremities: No edema, - - Tenderness across the dorsal aspect of the foot. No pain over base of the fifth metatarsal. No ankle pain. Sensation intact. There is also pain to palpation over the left scapula. No obvious deformities. 2+ radial pulse. 5 out of 5 muscle strength. Skin: Normal color, No rash Neurological: Alert, Oriented x3, Cranial nerves II-XII grossly intact, Normal Strength, Normal Sensation Psychological: Normal affect, Normal Mood Diagnostic/Tx/Re-eval Chest X-Ray - ED: - - Left foot x-ray interpreted by myself. No obvious fracture or dislocation appreciated. No large effusion or swelling. Left scapula x-ray does not show any signs of fracture. No traumatic findings. Agree with radiologist. - Medical Decision Making Patient presents to the ED for a fall that occurred 2 days ago. She is having foot and left shoulder blade pain. She has no midline spine tenderness on exam. No external evidence of trauma. Will check x-rays of the foot and shoulder blade to make sure there is no fracture. Patient's x-rays did not reveal any acute traumatic findings. Recommend symptomatic treatment with rice, Tylenol. She is to follow-up with her PCP. Warning signs and symptoms which to return to the ED are reviewed. She understands and is agreeable with this plan. Discharged home in stable condition. All questions answered. ED Disposition - Plan for ED Patient: Disposition: Home or Assisted Living Diagnosis: Contusion, foot, Shoulder pain Instructions: ED Foot Contusion, ED RICE Referrals: Miryam Riojas MD [Primary Care Provider] - 3-5 Days if not improving
--- NOTE | 2020-06-17 12:12 | RAD_ITS ---
EXAM: XR LEFT FOOT COMPLETE, 3 OR MORE VIEWS CLINICAL INDICATION: Fall injury. TECHNIQUE: Frontal, lateral and oblique views of the left foot. This report was created using [employer] report [employer] technology. COMPARISON: None. FINDINGS: BONES/JOINTS: Unremarkable. No acute fracture. No subluxation. Normal alignment. Preservation of the joint space. No sclerotic or destructive changes observed. SOFT TISSUES: Unremarkable. No soft tissue swelling or gas. No radiopaque foreign body. RAD/Foot min 3 Views IMPRESSION: No acute fracture or dislocation of the left foot. Electronically Signed: Roque Blood MD at 12:50 EDT , Service support ,
--- NOTE | 2020-06-17 12:13 | RAD_ITS ---
EXAM: XR LEFT SCAPULA COMPLETE CLINICAL INDICATION: Fall, pain TECHNIQUE: Frontal and Y-view of the left scapula. This report was created using [employer] report generation technology. COMPARISON: None. FINDINGS: BONES/JOINTS: Unremarkable. No acute fracture. No subluxation. Normal alignment. Preservation of the joint space. No sclerotic or destructive changes observed. SOFT TISSUES: Unremarkable. No soft tissue swelling or gas. No radiopaque foreign body. RAD/Scapula IMPRESSION: No acute fracture or dislocation of the left scapula. Electronically Signed: Roque Blood MD at 12:55 EDT , Service support ,
[2020-06-17 13:21] VITALS: RESP 18
== END 2020-06-17 13:22 | disposition home or self-care (01) ==
PROVIDERS: Emergency Provider Emergency Medicine; PCP Internal Medicine
DX: M25.512 Pain in left shoulder (principal); S90.32XA Contusion of left foot, initial encounter; W18.30XA Fall on same level, unspecified, initial encounter; Y93.89 Activity, other specified; Y92.89 Other specified places as the place of occurrence of the external cause; Y99.8 Other external cause status
CPT/HCPCS: 73010; 73630; 99282

== ENCOUNTER 2020-08-04 11:14 | Outpatient (RCR) | payer MEDICARE, BC, SELFPAY | END 2020-09-08 23:59 | LOC: IMMUN 11:14 | PROVIDERS: PCP Internal Medicine; Referring Provider Family Medicine; Visit Provider Family Medicine | DX: Z23 Encounter for immunization (principal) | CPT/HCPCS: 0001A; 91300 ==

== ENCOUNTER 2020-12-03 09:16 | Emergency (ER) | payer MEDICARE, BC, SELFPAY ==
[2020-12-03 09:17] VITALS: BP 144/75; PULSE 90; RESP 16; TEMP 36.9; O2SAT 97; BMI 32.5
--- NOTE | 2020-12-03 09:24 | RAD_ITS ---
STUDY: X-RAY CHEST REASON FOR EXAM: Female, 70 years old. COUGH TECHNIQUE: Single AP portable view of the chest. COMPARISON: 02/08/2019 FINDINGS: The lungs are clear and expanded. There is no demonstrated pleural abnormality. Normal size heart. Normal mediastinum and prince. Normal visualized pulmonary arteries. Normal visualized aortic arch and descending thoracic aorta. Normal visualized thoracic spine. Normal visualized ribs, clavicles, and shoulders. There is no demonstrated abnormality of the visualized soft tissue structures of the upper abdomen. RAD/Chest 1 View (Portable) IMPRESSION: Normal x-ray examination of the chest. Electronically Signed: Bradford Cornejo MD at 10:14 EDT Tel , Service support ,
[2020-12-03 09:25] VITALS: O2SAT 95
--- NOTE | 2020-12-03 10:10 | EDS_ITS ---
HPI HPI - URI History of Present Illness Chief Complaint: Cough Informant: patient Onset/Context/Timing Onset: Days Context: Gradual Onset Timing: Continuous Current Severity: Mild Maximum Severity: Mild Associated Symptoms Associated Symptoms: Positive for Nasal Congestion and Nonproductive cough Narrative Narrative: . Also prior DVT. Not on blood thinners. male history of [id number] seen and sent her home. URI symptoms since . No vomiting or diarrhea. No shortness of breath. She presented to work today they want her to get tested Prior similar symptoms: Yes Recent Illness/Hospitalization: No ROS ROS ED ROS Narrative Cough. Review of Systems ROS Unobtainable: Denies due to encephalopathy Constitutional Constitutional ED: Denies chills or subjective Eyes Eyes: Denies change in vision ENT ENT ED: Denies ear pain Cardiovascular Cardiovascular: Denies chest pain Respiratory/Chest Respiratory/Chest: Reports cough; Denies dyspnea Gastrointestinal Gastrointestinal: Denies abdominal pain, diarrhea, nausea or vomiting Genitourinary Genitourinary ED: Denies dysuria Musculoskeletal Musculoskeletal: Denies myalgias Integumentary Denies rash Neurologic Neurologic: Denies headache(s) Psychiatric Psychiatric: Denies depression Endocrine Endocrinology: Denies polyuria Hematologic/Lymphatic Hematologic/Lymphatic: Denies easy bruising Allergic/Immunologic Allergic/Immunologic ED: Denies urticaria PFSH [facility] Medical History (Updated 12/03/20 @ 10:[address] Paul Lara MD) Anemia Arthritis Atherosclerotic heart disease of [place] coronary artery without angina pectoris Barretts esophagus Cataracts, bilateral Cholecystitis Cholelithiasis with chronic cholecystitis DDD (degenerative disc disease), lumbar DVT (deep venous thrombosis) Dysmetabolic syndrome X Environmental allergies Essential hypertension Fibromyalgia Gallstones Ganglion cyst GERD (gastroesophageal reflux disease) History of atrial dilatation History of DVT (deep vein thrombosis) Hypothyroidism IBS (irritable bowel syndrome) Osteoarthritis PAD (peripheral artery disease) Pancreatitis Pancreatitis, gallstone Segmental and somatic dysfunction of lumbar region Segmental and somatic dysfunction of pelvic region Segmental and somatic dysfunction of thoracic region TIA (transient ischemic attack) Home Medications gabapentin 300 mg PO QHS 01/11/14 [History Last Taken 02/08/19] levothyroxine 50 mcg PO DAILY 01/11/14 [History Last Taken 02/09/19] lisinopril 10 mg PO DAILY 06/02/18 [History Last Taken 02/09/19] diazepam 5 mg tablet 5 mg PO QHS PRN 01/13/19 [History Last Taken 02/08/19] aspirin 81 mg PO DAILY@0800 02/09/19 [History Last Taken 02/09/19] acetaminophen 325 mg capsule 325 mg PO ONCE PRN 04/08/19 [History Last Taken Unknown] multivitamin 1 tab PO DAILY 04/08/19 [History Last Taken Unknown] white petrolatum-mineral oil 94 %-3 % eye ointment 1 applic OPHTHALMIC BID-QID PRN 04/08/19 [History Last Taken Unknown] albuterol sulfate 90 mcg/actuation aerosol inhaler 2 puff INHALATION Q4H PRN #18 g 09/20/19 [Rx Last Taken Unknown] cholecalciferol (vitamin D3) 125 mcg (5,000 unit) capsule 125 mcg PO DAILY 10/11/19 [History Last Taken Unknown] inhalational spacing device #1 ea 10/11/19 [Rx Last Taken Unknown] budesonide 0.5 mg/2 mL suspension for nebulization 0.5 mg INHALATION BID #120 ml 06/15/20 [Rx Last Taken Unknown] budesonide 0.5 mg/2 mL suspension for nebulization 0.5 mg INHALATION BID #120 ml 06/19/20 [Rx Last Taken Unknown] Allergy/AdvReac Type Severity Reaction Status Date / Time adhesive Allergy Unknown Verified 12/03/20 09:20 aspirin [From Aggrenox] Allergy Unknown Verified 12/03/20 09:20 benzocaine [From Cetacaine] Allergy Unknown Verified 12/03/20 09:20 butamben [From Cetacaine] Allergy Unknown Verified 12/03/20 09:20 cortisone [Cortisone] Allergy Unknown Verified 12/03/20 09:20 dipyridamole [From Aggrenox] Allergy Unknown Verified 12/03/20 09:20 lansoprazole [From Prevacid] Allergy Unknown Verified 12/03/20 09:20 latex Allergy Unknown Verified 12/03/20 09:20 meclizine Allergy Unknown Verified 12/03/20 09:20 methylprednisolone acetate Allergy Unknown Verified 12/03/20 09:20 [From Depo-Medrol] metoprolol Allergy Unknown Verified 12/03/20 09:20 omeprazole [From Prilosec] Allergy Unknown Verified 12/03/20 09:20 omeprazole magnesium Allergy Unknown Verified 12/03/20 09:20 [From Prilosec] oxybutynin chloride Allergy Unknown Verified 12/03/20 09:20 [From Ditropan] povidone-iodine Allergy Unknown Verified 12/03/20 09:20 [From Betadine] soap [From Betadine] Allergy Unknown Verified 12/03/20 09:20 sulfamethoxazole Allergy Unknown Verified 12/03/20 09:20 [From Bactrim] tegaserod [From Zelnorm] Allergy Hives Verified 12/03/20 09:20 tegaserod hydrogen maleate Allergy Unknown Verified 12/03/20 09:20 [From Zelnorm] tetracaine [From Cetacaine] Allergy Unknown Verified 12/03/20 09:20 tolterodine tartrate Allergy Unknown Verified 12/03/20 09:20 [From Detrol] trimethoprim [From Bactrim] Allergy Unknown Verified 12/03/20 09:20 codeine AdvReac Unknown Verified 12/03/20 09:20 mirabegron [From Myrbetriq] AdvReac Other Verified 12/03/20 09:20 tizanidine AdvReac Other Verified 12/03/20 09:20 vaccine adjuvant system, AdvReac Rash Verified 12/03/20 09:20 [id number] liposomal [From Shingrix (PF)] varicella-zoster virus AdvReac Rash Verified 12/03/20 09:20 glycoprotein E, recombinant [From Shingrix (PF)] DEPOMEDROL Allergy Angioedema Uncoded 12/03/20 09:20 PAPER TAPE AdvReac Rash Uncoded 12/03/20 09:20 Family History Mother Cancer Celiac disease Presence of permanent cardiac pacemaker Father Cancer Sister Hypertension Other Colon cancer Myocardial infarction Surgical History H/O hernia repair History of cholecystectomy History of esophagogastroduodenoscopy (EGD) History of laparotomy History of Robbie fundoplication History of tonsillectomy Hx of cardiac cath Hx of colonoscopy Hx of dilation and curettage hx of filter removal Hx of local excision of skin lesion Hx of superior vena cava filter placement Hx of tubal ligation S/P gastroplasty Social History Smoking Status: Never smoker alcohol intake: never substance use type: does not use caffeine: Yes Type: coffee Number of servings: 2 what type of physical activity do you participate in: walking frequency: 3-4 times per week EXAM Physical Exam Narrative Exam Narrative: 70-year-old female no acute distress vital signs stable. Afebrile. Pulse ox 97% on room air no hypoxia. HEENT exam unremarkable. Neck nontender. Lungs clear to auscultation bilaterally. Dry cough. Heart regular rate and rhythm. Abdomen soft nontender. Moving all 4 extremities. No edema otherwise exam unremarkable. Const Vital Signs: 12/03/20 09:17 12/03/20 10:51 Temperature 98.4 F Temperature Source Temporal Pulse Rate 90 Respiratory Rate 16 Blood Pressure 144/75 H Blood Pressure Mean 98 Pulse Ox 97 94 Oxygen Delivery Method Room Air Room Air Positive well nourished and well developed; Negative for obese, cachectic or contractures General Appearance ED: well developed and NAD; Negative for cachectic, contractures or pallor Nutritional Appearance: Negative for cachectic or obese HEENT normocephalic and atraumatic External Ear: external ears normal Eyes PERRL and EOMs intact bilaterally Neck no lymphadenopathy, supple, no meningeal signs and no JVD General: Negative for anterior neck swelling or lymphadenopathy Resp normal respiratory effort and clear to auscultation bilaterally Auscultation: Negative for rales, rhonchi or wheezes Cardio S1 normal heart sound, S2 normal heart sound and no murmurs Rate: regular rate Rhythm: regular rhythm GI non-tender, non-distended and no masses Inspection: Negative for abdominal distention Auscultation: normoactive bowel sounds; Negative for hyperactive bowel sounds Palpation: soft; Negative for tender or guarding Back/Spine no CVA tenderness and normal ROM General Back: Negative for CVA tenderness Cervical Spine: Negative for cervical spine tenderness Thoracic Spine / Upper Back: Negative for thoracic spinal tenderness Extremity normal to inspection and full ROM General Extremety ED: Negative for cyanosis or tenderness General Extremity: Negative for cyanosis Neuro oriented x3 Sensorium / Orientation: alert, oriented to person, oriented to place and oriented to time; Negative for orientation impaired, lethargic or stuporous Motor Exam: strength 5/5 throughout Psych mental status grossly normal Skin General Skin Exam: Negative for jaundice or pallor Lesions: no lesions Rashes: no rashes MDM MDM MDM Narrative Medical decision making narrative: 70-year-old female URI symptoms to be tested for Covid and obtain a chest x-ray. Repeat exam patient is doing well at 10:53 AM. Will be discharged home on Decadron. Outpatient follow-up. Home quarantine. Lab Data Attestation: I reviewed the patient's lab results. Lab results narrative: Chest x-ray portable 1 view interpreted by myself and rad iologist shows no acute abnormality. Normal cardiac silhouette. No infiltrates. Covid is positive. Radiography Diagnostic Testing: Radiology Impression Chest X-Ray 12/03/20 09:24 IMPRESSION: Normal x-ray examination of the chest. Electronically Signed: Bradford Cornejo MD at 10:14 EDT Tel , Service support , Discharge Plan Triage Chief Complaint: Cough ED Provider: Paul Lara Dx/Rx/DC Orders Clinical Impression: COVID-19 Instructions: Coronavirus Disease 2019 (COVID-19): Overview Prescriptions: No Action multivitamin Tablet 1 tab PO DAILY RF: 0 acetaminophen 325 mg capsule 325 mg PO ONCE PRNRF: 0 Systane Nighttime 94-3 % ointment 1 applic OPHTHALMIC BID-QID PRNRF: 0 diazepam 5 mg tablet 5 mg PO QHS PRN (Reason: anxiety) RF: 0 (DME) B[employer] MDI Spacer Spacer See Rx Instructions .ROUTE .MEDSUPPLY Qty: 1 RF: 0 cholecalciferol (vitamin D3) 125 mcg (5,000 unit) capsule 125 mcg PO DAILY RF: 0 albuterol sulfate [Ventolin HFA] 90 mcg/actuation HFA aerosol inhaler 2 puff INHALATION Q4H PRN (Reason: shortness of breath or wheezing) Qty: 18 RF: 6 budesonide 0.5 mg/2 mL suspension for nebulization 0.5 mg INHALATION BID Qty: 120 RF: 6 levothyroxine 50 MCG tablet 50 mcg PO DAILY RF: 0 gabapentin 100 MG capsule 300 mg PO QHS RF: 0 lisinopril 10 MG tablet 10 mg PO DAILY RF: 0 aspirin 81 MG tablet 81 mg PO DAILY@0800 RF: 0 budesonide 0.5 mg/2 mL suspension for nebulization 0.5 mg INHALATION BID Qty: 120 RF: 6 Primary Care Provider: Miryam Riojas Referrals: Miryam Riojas MD [Primary Care Provider] - As Needed Activity Restrictions/Additional Instructions: Plenty of fluids and rest. Follow-up with your doctor if getting worse. Return emergency department if you feel a lot worse and you are getting significantly short of breath. Home quarantine for 10 days from the onset of your symptoms last . Disposition Disposition: Home, Self Care
[2020-12-03 10:51] VITALS: O2SAT 94
[2020-12-03 11:41] VITALS: BP 143/72; PULSE 91; RESP 22; O2SAT 96
--- NOTE | 2020-12-03 11:41 | ED.RN ---
THIS NURSE REVIEWED D/C INSTRUCTIONS WITH PT. PT VERBALIZED UNDERSTANDING OF INSTRUCTIONS. PT DENIES FURTHER NEEDS OR QUESTIONS AT THIS TIEM
== END 2020-12-03 11:42 | disposition home or self-care (01) ==
PROVIDERS: Emergency Provider Emergency Medicine; PCP Internal Medicine
DX: U07.1 COVID-19 (principal); I25.10 Atherosclerotic heart disease of native coronary artery without angina pectoris; Z86.718 Personal history of other venous thrombosis and embolism
CPT/HCPCS: 71045; 87426; 94760; 99282

== ENCOUNTER 2020-12-14 12:42 | Emergency (ER) | payer OTHER, MEDICARE, BC, SELFPAY ==
[2020-12-14 12:43] VITALS: BP 143/71; PULSE 77; RESP 18; TEMP 37.2; O2SAT 95; BMI 34.1
--- NOTE | 2020-12-14 12:53 | ED.VIS.FALL ---
HPI HPI - Fall History of Present Illness Chief Complaint: Fall Detail of Chief Complaint: Fall and injury to right knee Informant: patient Narrative Narrative: Patient presents to the emergency department via EMS from work. Patient states that she tripped over 18 L foot and fell onto her right knee. She also complains of pain in her head and she is not sure if she hit her head. Patient had no loss of consciousness. Patient also had Covid 2 weeks ago and has had some chronic dizziness. Patient has some mild discomfort in the right ear. She denies any fevers. She denies neck pain or chest pain. Patient states that in 2014 she had a lumbar fusion but really her back does not hurt. [facility] Medical History (Updated 12/14/20 @ 14:[address] Ellie Mullins, ) Anemia Arthritis Atherosclerotic heart disease of [place] coronary artery without angina pectoris Barretts esophagus Cataracts, bilateral Cholecystitis Cholelithiasis with chronic cholecystitis DDD (degenerative disc disease), lumbar DVT (deep venous thrombosis) Dysmetabolic syndrome X Environmental allergies Essential hypertension Fibromyalgia Gallstones Ganglion cyst GERD (gastroesophageal reflux disease) History of atrial dilatation History of DVT (deep vein thrombosis) Hypothyroidism IBS (irritable bowel syndrome) Osteoarthritis PAD (peripheral artery disease) Pancreatitis Pancreatitis, gallstone Segmental and somatic dysfunction of lumbar region Segmental and somatic dysfunction of pelvic region Segmental and somatic dysfunction of thoracic region TIA (transient ischemic attack) Home Medications gabapentin 300 mg PO QHS 01/11/14 [History Last Taken 02/08/19] levothyroxine 50 mcg PO DAILY 01/11/14 [History Last Taken 02/09/19] lisinopril 10 mg PO DAILY 06/02/18 [History Last Taken 02/09/19] diazepam 5 mg tablet 5 mg PO QHS PRN 01/13/19 [History Last Taken 02/08/19] aspirin 81 mg PO DAILY@0800 02/09/19 [History Last Taken 02/09/19] acetaminophen 325 mg capsule 325 mg PO ONCE PRN 04/08/19 [History Last Taken Unknown] multivitamin 1 tab PO DAILY 04/08/19 [History Last Taken Unknown] white petrolatum-mineral oil 94 %-3 % eye ointment 1 applic OPHTHALMIC BID-QID PRN 04/08/19 [History Last Taken Unknown] albuterol sulfate 90 mcg/actuation aerosol inhaler 2 puff INHALATION Q4H PRN #18 g 09/20/19 [Rx Last Taken Unknown] cholecalciferol (vitamin D3) 125 mcg (5,000 unit) capsule 125 mcg PO DAILY 10/11/19 [History Last Taken Unknown] inhalational spacing device #1 ea 10/11/19 [Rx Last Taken Unknown] budesonide 0.5 mg/2 mL suspension for nebulization 0.5 mg INHALATION BID #120 ml 06/15/20 [Rx Last Taken Unknown] budesonide 0.5 mg/2 mL suspension for nebulization 0.5 mg INHALATION BID #120 ml 06/19/20 [Rx Last Taken Unknown] Allergy/AdvReac Type Severity Reaction Status Date / Time adhesive Allergy Unknown Verified 12/14/20 12:47 aspirin [From Aggrenox] Allergy Unknown Verified 12/14/20 12:47 benzocaine [From Cetacaine] Allergy Unknown Verified 12/14/20 12:47 butamben [From Cetacaine] Allergy Unknown Verified 12/14/20 12:47 cortisone [Cortisone] Allergy Unknown Verified 12/14/20 12:47 dipyridamole [From Aggrenox] Allergy Unknown Verified 12/14/20 12:47 lansoprazole [From Prevacid] Allergy Unknown Verified 12/14/20 12:47 latex Allergy Unknown Verified 12/14/20 12:47 meclizine Allergy Unknown Verified 12/14/20 12:47 methylprednisolone acetate Allergy Unknown Verified 12/14/20 12:47 [From Depo-Medrol] metoprolol Allergy Unknown Verified 12/14/20 12:47 omeprazole [From Prilosec] Allergy Unknown Verified 12/14/20 12:47 omeprazole magnesium Allergy Unknown Verified 12/14/20 12:47 [From Prilosec] oxybutynin chloride Allergy Unknown Verified 12/14/20 12:47 [From Ditropan] povidone-iodine Allergy Unknown Verified 12/14/20 12:47 [From Betadine] soap [From Betadine] Allergy Unknown Verified 12/14/20 12:47 sulfamethoxazole Allergy Unknown Verified 12/14/20 12:47 [From Bactrim] tegaserod [From Zelnorm] Allergy Hives Verified 12/14/20 12:47 tegaserod hydrogen maleate Allergy Unknown Verified 12/14/20 12:47 [From Zelnorm] tetracaine [From Cetacaine] Allergy Unknown Verified 12/14/20 12:47 tolterodine tartrate Allergy Unknown Verified 12/14/20 12:47 [From Detrol] trimethoprim [From Bactrim] Allergy Unknown Verified 12/14/20 12:47 codeine AdvReac Unknown Verified 12/14/20 12:47 mirabegron [From Myrbetriq] AdvReac Other Verified 12/14/20 12:47 tizanidine AdvReac Other Verified 12/14/20 12:47 vaccine adjuvant system, AdvReac Rash Verified 12/14/20 12:47 AS01B liposomal [From Shingrix (PF)] varicella-zoster virus AdvReac Rash Verified 12/14/20 12:47 glycoprotein E, recombinant [From Shingrix (PF)] DEPOMEDROL Allergy Angioedema Uncoded 12/14/20 12:47 PAPER TAPE AdvReac Rash Uncoded 12/14/20 12:47 Family History Mother Cancer Celiac disease Presence of permanent cardiac pacemaker Father Cancer Sister Hypertension Other Colon cancer Myocardial infarction Surgical History H/O hernia repair History of cholecystectomy History of esophagogastroduodenoscopy (EGD) History of laparotomy History of Robbie fundoplication History of tonsillectomy Hx of cardiac cath Hx of colonoscopy Hx of dilation and curettage hx of filter removal Hx of local excision of skin lesion Hx of superior vena cava filter placement Hx of tubal ligation S/P gastroplasty Social History Smoking Status: Never smoker alcohol intake: never substance use type: does not use caffeine: Yes Type: coffee Number of servings: 2 what type of physical activity do you participate in: walking frequency: 3-4 times per week ROS ROS ED Constitutional Constitutional ED: Reports systems reviewed and no addt'l complaints, except as documented; Denies body ache(s), change in weight or chills Eyes Eyes: Denies acute decrease in peripheral vision, change in vision, double vision or loss of vision ENT ENT ED: Reports none; Denies ear pain, lip swelling, loss taste/smell, neck pain, otalgia or sore throat Cardiovascular Cardiovascular: Reports none; Denies abdominal pain, chest pain with activity, leg edema, lightheadedness, palpitations, rapid heart rate or syncope Respiratory/Chest Respiratory/Chest: Reports none; Denies change in mental status, dry cough, dyspnea, hemoptysis, shortness of breath at rest or shortness of breath with exertion Gastrointestinal Gastrointestinal: Reports none; Denies abdominal pain, change in stool character, diarrhea, hematemesis, hematochezia, melena, rectal bleeding or vomiting Genitourinary Genitourinary ED: Reports none; Denies abdominal discomfort, anuria, dysuria, genital pain or polyuria Musculoskeletal Musculoskeletal: Reports none and other Details: Right knee injury ; Denies arthralgias, back pain, difficulty walking, extremity pain, muscle weakness or myalgias Integumentary Reports none; Denies abscess or rash Neurologic Neurologic: Reports none and headache(s); Denies abnormal gait, confusion, focal weakness, frequent falls, loss of vision, numbness, paresthesias, radicular pain, vertigo or weakness Psychiatric Psychiatric: Reports systems reviewed and no addt'l complaints, except as documented and none; Denies behavioral changes, confusion, difficulty concentrating, hallucinations, suicidal ideation, tactile hallucinations or visual hallucinations Endocrine Endocrinology: Denies none, cold intolerance, excessive sweating, fatigue or heat intolerance Hematologic/Lymphatic Hematologic/Lymphatic: Reports none; Denies anemia, easy bleeding or easy bruising Allergic/Immunologic Allergic/Immunologic ED: Denies as per HPI, none, lip swelling, mouth swelling, throat swelling, tongue swelling or hives EXAM Physical Exam Const Vital Signs: 12/14/20 12:43 12/14/20 12:47 Temperature 98.9 F Temperature Source Oral Pulse Rate 77 Respiratory Rate 18 Respiratory Effort Normal Non-Labored Blood Pressure 143/71 H Blood Pressure Mean 95 Pulse Ox 95 Positive well nourished and well developed General Appearance ED: well developed and NAD HEENT Reports TM's clear and moist mucous membranes HEENT Narrative: No external evidence of trauma to her head. No C-spine tenderness on palpation. normocephalic and atraumatic; Negative for trauma or tenderness Tympanic Membrane ED: Yes TM's clear Eyes PERRL and EOMs intact bilaterally General Eye ED: Negative for pale conjunctiva or scleral icterus Neck no lymphadenopathy, supple and no JVD General: Negative for tenderness Chest Wall inspection of chest normal and palpation of chest normal Chest: Negative for tenderness Resp normal respiratory effort and clear to auscultation bilaterally Effort and Inspection: Negative for respiratory distress or pain with movement Auscultation: Negative for rhonchi, wheezes or diminished lung sounds Cardio regular rate, regular rhythm, S1 normal heart sound, S2 normal heart sound and no murmurs Peripheral Pulses: pulses 2+ throughout GI normal to inspection, nondistended, normoactive bowel sounds, soft to palpation, non-tender, non-distended and no masses Back/Spine no CVA tenderness and no thoracic nor lumbar tenderness Extremity Extremity Narrative: Evaluation of the right knee reveals an area of faint erythema over the anterior patella with some tenderness palpation. She has good range of motion flexion extension of the knee. She is neurovascular intact distally. General Extremety ED: Negative for edema General Extremity: Negative for edema Neuro oriented x3, CN's II-XII intact bilaterally, no sensory deficits noted and gait normal Sensorium / Orientation: awake, alert, oriented to person, oriented to place and oriented to time Motor Exam: strength 5/5 throughout and strength abnormal Psych mental status grossly normal Skin no rashes or lesions noted and no wounds MDM MDM MDM Narrative Medical decision making narrative: Patient has no evidence of fracture. She is instructed to use ice to the area. She is to use ibuprofen or Tylenol for discomfort. She is to follow-up with corporate care in 5 to 7 days. She is given work restrictions. Radiography Diagnostic Testing: Radiology Impression Knee X-Ray 12/14/20 12:55 IMPRESSION: Degenerative arthrosis. Electronically Signed: Venkata Singer MD at 13:09 EDT , Service support , 4 view x-rays of the right knee obtained interpreted by myself as no acute fractures or dislocations. Radiology was in agreement. They noted degenerative arthrosis. Discharge Plan Triage Chief Complaint: Fall ED Provider: Ellie Mullins Dx/Rx/DC Orders Clinical Impression: Fall, Contusion of knee, right Instructions: ED Contusion, Lower Extremity, ED Mechanical Fall Prescriptions: No Action multivitamin Tablet 1 tab PO DAILY RF: 0 acetaminophen 325 mg capsule 325 mg PO ONCE PRNRF: 0 Systane Nighttime 94-3 % ointment 1 applic OPHTHALMIC BID-QID PRNRF: 0 diazepam 5 mg tablet 5 mg PO QHS PRN (Reason: anxiety) RF: 0 (DME) [employer] MDI Spacer Spacer See Rx Instructions .ROUTE .MEDSUPPLY Qty: 1 RF: 0 cholecalciferol (vitamin D3) 125 mcg (5,000 unit) capsule 125 mcg PO DAILY RF: 0 albuterol sulfate [Ventolin HFA] 90 mcg/actuation HFA aerosol inhaler 2 puff INHALATION Q4H PRN (Reason: shortness of breath or wheezing) Qty: 18 RF: 6 budesonide 0.5 mg/2 mL suspension for nebulization 0.5 mg INHALATION BID Qty: 120 RF: 6 levothyroxine 50 MCG tablet 50 mcg PO DAILY RF: 0 gabapentin 100 MG capsule 300 mg PO QHS RF: 0 lisinopril 10 MG tablet 10 mg PO DAILY RF: 0 aspirin 81 MG tablet 81 mg PO DAILY@0800 RF: 0 budesonide 0.5 mg/2 mL suspension for nebulization 0.5 mg INHALATION BID Qty: 120 RF: 6 Primary Care Provider: Miryam Riojas Referrals: [facility] OF PHYSICIANS] - 3-5 Days Miryam Riojas MD [Primary Care Provider] - Disposition Disposition: Home, Self Care
--- NOTE | 2020-12-14 12:55 | RAD_ITS ---
STUDY: X-RAY - RIGHT KNEE REASON FOR EXAM: Female, 70 years old. Injury TECHNIQUE: 4 view(s) of the knee. COMPARISON: Comparison is made with prior study dated 04/03/2018. FINDINGS: Normal visualized distal femur. Normal visualized proximal tibia and fibula. Normal proximal tibiofibular articulation. There is moderate degenerative arthrosis of the medial femorotibial compartment with moderate joint space narrowing. There is mild degenerative arthrosis of the lateral femorotibial compartment. There is mild degenerative arthrosis of the patellofemoral articulation. The soft tissue structures are unremarkable. RAD/Knee 4 or More Views IMPRESSION: Degenerative arthrosis. Electronically Signed: Venkata Singer MD at 13:09 EDT , Service support ,
== END 2020-12-14 14:42 | disposition home or self-care (01) ==
PROVIDERS: Emergency Provider Emergency Medicine; PCP Internal Medicine
DX: S80.01XA Contusion of right knee, initial encounter (principal); I25.10 Atherosclerotic heart disease of native coronary artery without angina pectoris; W01.0XXA Fall on same level from slipping, tripping and stumbling without subsequent striking against object, initial encounter; Z86.718 Personal history of other venous thrombosis and embolism
CPT/HCPCS: 73564; 99284

== ENCOUNTER 2021-05-25 12:37 | Outpatient (CLI) | payer MEDICARE, BC, SELFPAY ==
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
== END 2021-05-25 23:59 | disposition home or self-care (01) ==
LOC: RAD 12:39
PROVIDERS: PCP Internal Medicine; Referring Provider Internal Medicine Critical Care Medicine; Visit Provider Internal Medicine Critical Care Medicine
DX: R05.3 Chronic cough (principal)
CPT/HCPCS: 74230; 92611

== ENCOUNTER 2021-09-18 11:55 | Emergency (ER) | payer MEDICARE, BC, SELFPAY ==
[2021-09-18 11:55] VITALS: BP 140/83; PULSE 81; RESP 16; TEMP 37.1; O2SAT 96; BMI 33.3
--- NOTE | 2021-09-18 12:30 | EDS_ITS ---
HPI History of Present Illness Chief Complaint: Rash Informant: patient Narrative Narrative: 71[facility] When she woke this morning she noticed a itchy red rash on her arms and then noticed a small area around the right periorbital region. She has subsequently seen an area on her foot. [facility] Medical History Anemia Arthritis Atherosclerotic heart disease of [place] coronary artery without angina pectoris Barretts esophagus Cataracts, bilateral Cholecystitis Cholelithiasis with chronic cholecystitis DDD (degenerative disc disease), lumbar DVT (deep venous thrombosis) Dysmetabolic syndrome X Environmental allergies Essential hypertension Fibromyalgia Gallstones Ganglion cyst GERD (gastroesophageal reflux disease) History of atrial dilatation History of DVT (deep vein thrombosis) Hypothyroidism IBS (irritable bowel syndrome) Osteoarthritis PAD (peripheral artery disease) Pancreatitis Pancreatitis, gallstone Segmental and somatic dysfunction of lumbar region Segmental and somatic dysfunction of pelvic region Segmental and somatic dysfunction of thoracic region TIA (transient ischemic attack) Home Medications gabapentin 100 mg capsule 300 mg PO QHS 01/11/14 [History Last Taken 02/08/19] levothyroxine 50 mcg tablet 50 mcg PO DAILY 01/11/14 [History Last Taken 02/09/19] lisinopril 10 mg tablet 10 mg PO DAILY hypertension 06/02/18 [History Last Taken 02/09/19] diazepam 5 mg tablet 5 mg PO QHS PRN anxiety 01/13/19 [History Last Taken 02/08/19] aspirin 81 mg tablet,delayed release 81 mg PO DAILY@0800 02/09/19 [History Last Taken 02/09/19] acetaminophen 325 mg capsule 325 mg PO ONCE PRN 04/08/19 [History Last Taken Unknown] multivitamin 1 tab PO DAILY 04/08/19 [History Last Taken Unknown] white petrolatum-mineral oil 94 %-3 % eye ointment (Systane Nighttime) 1 applic ophthalmic (eye) BID-QID PRN 04/08/19 [History Last Taken Unknown] albuterol sulfate 90 mcg/actuation aerosol inhaler (Ventolin HFA) 2 puff inhalation Q4H PRN shortness of breath or wheezing #18 grams 09/20/19 [Rx Last Taken Unknown] cholecalciferol (vitamin D3) 125 mcg (5,000 unit) capsule 125 mcg PO DAILY 10/11/19 [History Last Taken Unknown] inhalational spacing device (BreatheRite MDI Spacer) #1 ea 10/11/19 [Rx Last Taken Unknown] budesonide 0.5 mg/2 mL suspension for nebulization 0.5 mg (2 mL) inhalation BID #120 mL 08/06/21 [Rx Last Taken Unknown] prednisone 20 mg tablet See Rx Instructions .Route .COMPLEX #24 TABLETS 09/18/21 [Rx Last Taken Unknown] Allergy/AdvReac Type Severity Reaction Status Date / Time adhesive Allergy Unknown Verified 09/18/21 11:58 aspirin [From Aggrenox] Allergy Unknown Verified 09/18/21 11:58 benzocaine [From Cetacaine] Allergy Unknown Verified 09/18/21 11:58 butamben [From Cetacaine] Allergy Unknown Verified 09/18/21 11:58 cortisone [Cortisone] Allergy Unknown Verified 09/18/21 11:58 dipyridamole [From Aggrenox] Allergy Unknown Verified 09/18/21 11:58 lansoprazole [From Prevacid] Allergy Unknown Verified 09/18/21 11:58 latex Allergy Unknown Verified 09/18/21 11:58 meclizine Allergy Unknown Verified 09/18/21 11:58 methylprednisolone acetate Allergy Unknown Verified 09/18/21 11:58 [From Depo-Medrol] metoprolol Allergy Unknown Verified 09/18/21 11:58 omeprazole [From Prilosec] Allergy Unknown Verified 09/18/21 11:58 omeprazole magnesium Allergy Unknown Verified 09/18/21 11:58 [From Prilosec] oxybutynin chloride Allergy Unknown Verified 09/18/21 11:58 [From Ditropan] povidone-iodine Allergy Unknown Verified 09/18/21 11:58 [From Betadine] soap [From Betadine] Allergy Unknown Verified 09/18/21 11:58 sulfamethoxazole Allergy Unknown Verified 09/18/21 11:58 [From Bactrim] tegaserod [From Zelnorm] Allergy Hives Verified 09/18/21 11:58 tegaserod hydrogen maleate Allergy Unknown Verified 09/18/21 11:58 [From Zelnorm] tetracaine [From Cetacaine] Allergy Unknown Verified 09/18/21 11:58 tolterodine tartrate Allergy Unknown Verified 09/18/21 11:58 [From Detrol] trimethoprim [From Bactrim] Allergy Unknown Verified 09/18/21 11:58 codeine AdvReac Unknown Verified 09/18/21 11:58 mirabegron [From Myrbetriq] AdvReac Other Verified 09/18/21 11:58 tizanidine AdvReac Other Verified 09/18/21 11:58 vaccine adjuvant system, AdvReac Rash Verified 09/18/21 11:58 [id number] liposomal [From Shingrix (PF)] varicella-zoster virus AdvReac Rash Verified 09/18/21 11:58 glycoprotein E, recombinant [From Shingrix (PF)] DEPOMEDROL Allergy Angioedema Uncoded 09/18/21 11:58 PAPER TAPE AdvReac Rash Uncoded 09/18/21 11:58 Family History Mother Cancer Celiac disease Presence of permanent cardiac pacemaker Father Cancer Sister Hypertension Other Colon cancer Myocardial infarction Surgical History H/O hernia repair History of cholecystectomy History of esophagogastroduodenoscopy (EGD) History of laparotomy History of Robbie fundoplication History of tonsillectomy Hx of cardiac cath Hx of colonoscopy Hx of dilation and curettage hx of filter removal Hx of local excision of skin lesion Hx of superior vena cava filter placement Hx of tubal ligation S/P gastroplasty Social History Smoking Status: Never smoker alcohol intake: never substance use type: does not use caffeine: Yes Type: coffee Number of servings: 2 what type of physical activity do you participate in: walking frequency: 3-4 times per week ROS ROS ED Constitutional Constitutional ED: Denies chills or weight loss Eyes Eyes: Denies change in vision or diplopia ENT ENT ED: Denies ear pain, rhinorrhea or sore throat Cardiovascular Cardiovascular: Denies chest pain, orthopnea, palpitations or racing heartbeat Respiratory/Chest Respiratory/Chest: Denies cough, dyspnea or orthopnea Gastrointestinal Gastrointestinal: Denies abdominal pain, diarrhea, nausea or vomiting Genitourinary Genitourinary ED: Denies dysuria, hematuria or urinary frequency Musculoskeletal Musculoskeletal: Denies arthralgias or myalgias Integumentary Reports rash; Denies abscess Neurologic Neurologic: Denies headache(s) or weakness Psychiatric Psychiatric: Denies anxiety, depression, suicidal ideation or suicidal thoughts Endocrine Endocrinology: Denies polydipsia, polyphagia or polyuria Allergic/Immunologic Allergic/Immunologic ED: Denies mouth swelling, tongue swelling or urticaria EXAM Physical Exam Const Vital Signs: 09/18/21 11:55 Temperature 98.7 F Temperature Source Temporal Pulse Rate 81 Respiratory Rate 16 Blood Pressure 140/83 H Blood Pressure Mean 102 Pulse Ox 96 Oxygen Delivery Method Room Air Positive well nourished and well developed General Appearance ED: well developed HEENT Reports normocephalic, head/scalp atraumatic and moist mucous membranes Eyes PERRL and EOMs intact bilaterally Neck no lymphadenopathy, supple and no JVD Resp normal respiratory effort and clear to auscultation bilaterally Cardio regular rate, regular rhythm and no murmurs GI normal to inspection, nondistended, normoactive bowel sounds and non-tender Palpation: soft Back/Spine no CVA tenderness and normal ROM Extremity normal to inspection General Extremety ED: Negative for edema General Extremity: Negative for edema Neuro oriented x3 and CN's II-XII intact bilaterally Sensorium / Orientation: alert Motor Exam: strength 5/5 throughout Psych mental status grossly normal Mood & Affect: Negative for depressed or tearful Skin no wounds Skin Narrative: There is a erythematous blanching raised rash on the extremities (forearms right inferior periorbital region and left foot) is consistent with a contact dermatitis MDM MDM MDM Narrative Medical decision making narrative: Patient will be scribed a tapering dose of prednisone. I will have her follow- up with primary care if not improving Discharge Plan Triage Chief Complaint: Rash Other Complaint: Eye Problem ED Provider: Stew Garza Dx/Rx/DC Orders Clinical Impression: Contact dermatitis Instructions: ED Contact Dermatitis Prescriptions: New prednisone 20 mg tablet See Rx Instructions .ROUTE .COMPLEX Qty: 24 0RF Rx Instructions: 3 tabs p.o. daily days 1 through 4, then 2 tabs p.o. daily days 5 through 8, then 1 tab p.o. daily day 9 through 12 No Action multivitamin Tablet 1 tab PO DAILY acetaminophen 325 mg capsule 325 mg PO ONCE PRN Systane Nighttime 94-3 % ointment 1 applic OPHTHALMIC BID-QID PRN diazepam 5 mg tablet 5 mg PO QHS PRN (Reason: anxiety) (DME) BreatheRite MDI Spacer Spacer See Rx Instructions .ROUTE .MEDSUPPLY Qty: 1 0RF Rx Instructions: As directed cholecalciferol (vitamin D3) 125 mcg (5,000 unit) capsule 125 mcg PO DAILY albuterol sulfate [Ventolin HFA] 90 mcg/actuation HFA aerosol inhaler 2 puff INHALATION Q4H PRN (Reason: shortness of breath or wheezing) Qty: 18 6RF budesonide 0.5 mg/2 mL suspension for nebulization 0.5 mg INHALATION BID Qty: 120 6RF Rx Instructions: J45.40 levothyroxine 50 MCG tablet 50 mcg PO DAILY gabapentin 100 MG capsule 300 mg PO QHS lisinopril 10 MG tablet 10 mg PO DAILY aspirin 81 MG tablet 81 mg PO DAILY@0800 Primary Care Provider: Miryam Riojas Referrals: Miryam Riojas MD [Primary Care Provider] - As Needed Disposition Disposition: Home, Self Care
== END 2021-09-18 12:45 | disposition home or self-care (01) ==
LOC: ED 12:44
PROVIDERS: Emergency Provider Emergency Medicine; PCP Internal Medicine; Visit Provider Emergency Medicine
DX: L25.9 Unspecified contact dermatitis, unspecified cause (principal); I48.91 Unspecified atrial fibrillation; I25.10 Atherosclerotic heart disease of native coronary artery without angina pectoris; I10 Essential (primary) hypertension; E03.9 Hypothyroidism, unspecified; Z86.73 Personal history of transient ischemic attack (TIA), and cerebral infarction without residual deficits; Z86.718 Personal history of other venous thrombosis and embolism
CPT/HCPCS: 99282

== ENCOUNTER 2022-04-24 14:35 | Emergency (ER) | payer MEDICARE, BC, SELFPAY ==
[2022-04-24 14:37] VITALS: BP 115/75; PULSE 79; RESP 16; TEMP 36.8; O2SAT 94; BMI 34.3
--- NOTE | 2022-04-24 14:45 | ED.RN ---
NO STROKE ALERT CALLED PER DR SARMIENTO
--- NOTE | 2022-04-24 16:43 | CT_ITS ---
INDICATION: neck swelling EXAMINATION: CT Soft Tissue Neck W/ Contrast Injection TECHNIQUE: Helically acquired images were obtained of the neck following IV contrast. A radiation dose optimization technique was used for this scan. IV Contrast dosage and agent: 100cc Isovue 370 COMPARISON: None. FINDINGS: NASOPHARYNX: Unremarkable. SUPRAHYOID NECK: Unremarkable oropharynx, oral cavity, parapharyngeal space, and retropharyngeal space. INFRAHYOID NECK: Unremarkable larynx, hypopharynx, and supraglottis. THYROID: No focal lesions. SALIVARY GLANDS: Unremarkable. LYMPH NODES: No cervical or supraclavicular lymphadenopathy. VASCULAR STRUCTURES: Unremarkable. VISUALIZED PORTIONS OF THE ORBITS, PARANASAL SINUSES, MASTOID AIR CELLS AND SKULL BASE: Unremarkable. BONES: Unremarkable. THORACIC INLET: Clear lung apices. CT/Soft Tissue Neck WITH Contrast IMPRESSION: Negative CT Neck with contrast. Electronically Signed: Edin Sarah MD at 18:07 [facility] ,
--- NOTE | 2022-04-24 16:45 | EDS_ITS ---
HPI History of Present Illness Chief Complaint: Edema Narrative Narrative: 72-year-old female presenting with left-sided jaw swelling and neck swelling. She states this started today. Patient denies any pain. She denies difficulty swallowing or breathing. She called her primary care office and the nurses line told her to come to the emergency room for history of stroke. They wanted to rule out a stroke due to facial swelling. Patient denies paresthesia, disability, visual complaints, weakness. She states her face just feels a little swollen in this area. She has history of TIA. Her states she looks like she normally does. He does not appreciate any swelling. [facility] Medical History Anemia Arthritis Atherosclerotic heart disease of [place] coronary artery without angina pectoris Barretts esophagus Cataracts, bilateral Cholecystitis Cholelithiasis with chronic cholecystitis DDD (degenerative disc disease), lumbar DVT (deep venous thrombosis) Dysmetabolic syndrome X Environmental allergies Essential hypertension Fibromyalgia Gallstones Ganglion cyst GERD (gastroesophageal reflux disease) History of atrial dilatation History of DVT (deep vein thrombosis) Hypothyroidism IBS (irritable bowel syndrome) Osteoarthritis PAD (peripheral artery disease) Pancreatitis Pancreatitis, gallstone Segmental and somatic dysfunction of lumbar region Segmental and somatic dysfunction of pelvic region Segmental and somatic dysfunction of thoracic region TIA (transient ischemic attack) Home Medications gabapentin 100 mg capsule 300 mg PO QHS 01/11/14 [History Last Taken 02/08/19] levothyroxine 50 mcg tablet 50 mcg PO DAILY 01/11/14 [History Last Taken 02/09/19] lisinopril 10 mg tablet 10 mg PO DAILY hypertension 06/02/18 [History Last Taken 02/09/19] diazepam 5 mg tablet 5 mg PO QHS PRN anxiety 01/13/19 [History Last Taken 02/08/19] aspirin 81 mg tablet,delayed release 81 mg PO DAILY@0800 02/09/19 [History Last Taken 02/09/19] acetaminophen 325 mg capsule 325 mg PO ONCE PRN 04/08/19 [History Last Taken Unknown] multivitamin 1 tab PO DAILY 04/08/19 [History Last Taken Unknown] white petrolatum-mineral oil 94 %-3 % eye ointment (Systane Nighttime) 1 applic ophthalmic (eye) BID-QID PRN 04/08/19 [History Last Taken Unknown] albuterol sulfate 90 mcg/actuation aerosol inhaler (Ventolin HFA) 2 puff inhalation Q4H PRN shortness of breath or wheezing #18 grams 09/20/19 [Rx Last Taken Unknown] cholecalciferol (vitamin D3) 125 mcg (5,000 unit) capsule 125 mcg PO DAILY 10/11/19 [History Last Taken Unknown] inhalational spacing device (BreatheRite MDI Spacer) #1 ea 10/11/19 [Rx Last Taken Unknown] budesonide 0.5 mg/2 mL suspension for nebulization 0.5 mg (2 mL) inhalation BID #120 mL 08/06/21 [Rx Last Taken Unknown] Allergy/AdvReac Type Severity Reaction Status Date / Time adhesive Allergy Unknown Verified 04/24/22 14:40 aspirin [From Aggrenox] Allergy Unknown Verified 04/24/22 14:40 benzocaine [From Cetacaine] Allergy Unknown Verified 04/24/22 14:40 butamben [From Cetacaine] Allergy Unknown Verified 04/24/22 14:40 cortisone [Cortisone] Allergy Unknown Verified 04/24/22 14:40 dipyridamole [From Aggrenox] Allergy Unknown Verified 04/24/22 14:40 lansoprazole [From Prevacid] Allergy Unknown Verified 04/24/22 14:40 latex Allergy Unknown Verified 04/24/22 14:40 meclizine Allergy Unknown Verified 04/24/22 14:40 methylprednisolone acetate Allergy Angioedema Verified 04/24/22 14:40 [From Depo-Medrol] metoprolol Allergy Unknown Verified 04/24/22 14:40 omeprazole [From Prilosec] Allergy Unknown Verified 04/24/22 14:40 omeprazole magnesium Allergy Unknown Verified 04/24/22 14:40 [From Prilosec] oxybutynin chloride Allergy Unknown Verified 04/24/22 14:40 [From Ditropan] povidone-iodine Allergy Unknown Verified 04/24/22 14:40 [From Betadine] soap [From Betadine] Allergy Unknown Verified 04/24/22 14:40 sulfamethoxazole Allergy Unknown Verified 04/24/22 14:40 [From Bactrim] tegaserod [From Zelnorm] Allergy Hives Verified 04/24/22 14:40 tegaserod hydrogen maleate Allergy Unknown Verified 04/24/22 14:40 [From Zelnorm] tetracaine [From Cetacaine] Allergy Unknown Verified 04/24/22 14:40 tolterodine tartrate Allergy Unknown Verified 04/24/22 14:40 [From Detrol] trimethoprim [From Bactrim] Allergy Unknown Verified 04/24/22 14:40 adhesive tape AdvReac Rash Verified 04/24/22 14:40 codeine AdvReac Unknown Verified 04/24/22 14:40 mirabegron [From Myrbetriq] AdvReac Other Verified 04/24/22 14:40 tizanidine AdvReac Other Verified 04/24/22 14:40 vaccine adjuvant system, AdvReac Rash Verified 04/24/22 14:40 [id number] liposomal [From Shingrix (PF)] varicella-zoster virus AdvReac Rash Verified 04/24/22 14:40 glycoprotein E, recombinant [From Shingrix (PF)] Family History Mother Cancer Celiac disease Presence of permanent cardiac pacemaker Father Cancer Sister Hypertension Other Colon cancer Myocardial infarction Surgical History H/O hernia repair History of cholecystectomy History of esophagogastroduodenoscopy (EGD) History of laparotomy History of Robbie fundoplication History of tonsillectomy Hx of cardiac cath Hx of colonoscopy Hx of dilation and curettage hx of filter removal Hx of local excision of skin lesion Hx of superior vena cava filter placement Hx of tubal ligation S/P gastroplasty Social History Smoking Status: Never smoker alcohol intake: never substance use type: does not use caffeine: Yes Type: coffee Number of servings: 2 what type of physical activity do you participate in: walking frequency: 3-4 times per week ROS ROS ED Constitutional Constitutional ED: Denies chills or subjective Eyes Eyes: Denies change in vision ENT ENT ED: Reports other Details: Left jaw and neck pain Cardiovascular Cardiovascular: Denies chest pain Respiratory/Chest Respiratory/Chest: Denies cough or dyspnea Gastrointestinal Gastrointestinal: Denies abdominal pain Genitourinary Genitourinary ED: Denies dysuria or hematuria Musculoskeletal Musculoskeletal: Denies arthralgias Integumentary Denies abscess or Abrasions Neurologic Neurologic: Denies headache(s) or paresthesias Psychiatric Psychiatric: Denies anxiety or depression Endocrine Endocrinology: Denies cold intolerance or heat intolerance EXAM Physical Exam Const Vital Signs: 04/24/22 14:37 04/24/22 17:17 04/24/22 19:56 Temperature 98.3 F Temperature Source Temporal Pulse Rate 79 61 Respiratory Rate 16 17 Respiratory Effort Normal Non-Labored Respiratory Pattern Normal Blood Pressure 115/75 158/90 H Blood Pressure Mean 88 112 Pulse Ox 94 97 Oxygen Delivery Method Room Air Room Air Positive well nourished General Appearance ED: NAD HEENT Reports normocephalic and moist mucous membranes Negative for trauma Face and Sinus: normal facial exam Nose: external nose normal, nares normal and nasal mucous membranes and turbinates normal External Ear: external ears normal Mouth ED: Yes oral and palatal mucosa normal, Yes lips normal, Yes tongue normal, Yes salivary gland normal, No drooling, No mouth trauma and No muffled voice Mouth: oral and palatal mucosa normal, lips normal, tongue normal, salivary gland normal, No drooling, No mouth trauma and No muffled voice Teeth and Gingiva: Negative for abnormal tooth and associated gingiva Throat: posterior oropharynx normal; Negative for peritonsillar mass Eyes PERRL Neck full ROM General: lymphadenopathy submental (Left) and submandibular (Left) Thyroid: thyroid normal Carotids: Negative for carotid tenderness Chest Wall inspection of chest normal Resp normal respiratory effort and clear to auscultation bilaterally Cardio regular rate and regular rhythm GI normal to inspection, nondistended, normoactive bowel sounds Neuro oriented x3 and CN's II-XII intact bilaterally Sensorium / Orientation: alert Psych mental status grossly normal Skin no rashes or lesions noted MDM MDM MDM Narrative Medical decision making narrative: Patient presenting with neck pain and left-sided jaw pain. Started today. I do not appreciate any swelling on examination. Her thinks is looks symmetrical as well. She does have some tenderness in the angle of the mandible and some submandibular lymphadenopathy on that side. She is minimally tender here. No sublingual edema. Tongue normal. Lips are not swollen. Buccal mucosa normal. Dentition normal. CBC to assess white blood cell count, hemoglobin, differential. BMP to assess renal function and electrolytes. Will obtain CT soft tissue neck with contrast. CBC is positive for white blood cell count 11.1. Hemoglobin Stable. Platelets normal at 319. Renal function electrolytes within normal limits. Obtained a CT soft tissue because of the patient's subjective sensation of swelling and possibly a little lymphadenopathy on that side. CT CT soft tissue neck was negative for any acute findings. Patient is however on lisinopril. I do not see any visible swelling but at most this could be angioedema. I will speak to her primary care physician about switching her blood pressure medicine. I spoke with Dr. Hernandez. I did tell her that the patient has no objective findings. Her CT scan and her blood work are normal. We would do her med list again. She has a lot of medication allergies. Dr. Hernandez wants to switch her to Norvasc 2.5 mg and lieu of the lisinopril just in case this is early angioedema. Patient was amenable to this. She is discharged home in stable condition. Impression: 1. Angioedema Lab Data Attestation: I reviewed the patient's lab results. Labs: Laboratory Results - last 24 hr 04/24/22 04/24/22 17:12 17:12 WBC 11.1 H RBC 4.79 Hgb 14.5 Hct 45.4 MCV 94.8 MCH 30.3 MCHC 31.9 L RDW Std Deviation 46.0 H RDW Coeff of Ronnie 13.2 Plt Count 319 MPV 9.5 Immature Gran % (Auto) 0.300 Neut % (Auto) 49.5 Lymph % (Auto) 34.8 [place] % (Auto) 7.7 Eos % (Auto) 6.8 H Baso % (Auto) 0.9 Absolute Neuts (auto) 5.5 Absolute Lymphs (auto) 3.87 Nucleated RBC % 0 Sodium 142 Potassium 3.8 Chloride 107 Carbon Dioxide 29.0 Anion Gap 6 BUN 16 Creatinine 0.79 Estim Creat Clear Calc 43.91 Est GFR (MDRD) Af Amer 92 Est GFR (MDRD) Non-Af 76 BUN/Creatinine Ratio 20.2 H Glucose 104 Calcium 9.3 Radiography Diagnostic Testing: Clinical Impression(s) from Imaging Studies Soft Tissue Neck CT 04/24/22 16:43 IMPRESSION: Negative CT Neck with contrast. Electronically Signed: Edin Sarah MD at 18:07 EST , Discharge Plan Triage Chief Complaint: Edema ED Provider: Rajinder Alatorre Dx/Rx/DC Orders Prescriptions: No Action multivitamin Tablet 1 tab PO DAILY acetaminophen 325 mg capsule 325 mg PO ONCE PRN Systane Nighttime 94-3 % ointment 1 applic OPHTHALMIC BID-QID PRN diazepam 5 mg tablet 5 mg PO QHS PRN (Reason: anxiety) (DME) BreatheRite MDI Spacer Spacer See Rx Instructions .ROUTE .MEDSUPPLY Qty: 1 0RF Rx Instructions: As directed cholecalciferol (vitamin D3) 125 mcg (5,000 unit) capsule 125 mcg PO DAILY albuterol sulfate [Ventolin HFA] 90 mcg/actuation HFA aerosol inhaler 2 puff INHALATION Q4H PRN (Reason: shortness of breath or wheezing) Qty: 18 6RF budesonide 0.5 mg/2 mL suspension for nebulization 0.5 mg INHALATION BID Qty: 120 6RF Rx Instructions: J45.40 levothyroxine 50 MCG tablet 50 mcg PO DAILY gabapentin 100 MG capsule 300 mg PO QHS lisinopril 10 MG tablet 10 mg PO DAILY aspirin 81 MG tablet 81 mg PO DAILY@0800 Primary Care Provider: Miryam Riojas Referrals: Miryam Riojas MD [Primary Care Provider] -
[2022-04-24 17:29] LABS: Absolute Lymphocyte Count 3.87 X10^3/uL (0.83-4.51); Absolute Neutrophil Count 5.5 X10^3/uL (2.0-7.7); Basophil% 0.9 % (0-1); Eosinophil# 0.75 X10^3/uL; Eosinophils% 6.8 % (0-5); Hematocrit 45.4 % (37-47); Hemoglobin 14.5 g/dL (12.0-15.0); Lymphocyte # 3.87 X10^3/ul (0.83-4.51); Lymphocyte % 34.8 % (19-41); Mean Corp Hgb Conc 31.9 g/dL (32-36); Mean Corpuscular Hgb 30.3 pg (27.0-32.0); Mean Corpuscular Volume 94.8 fL (81-99); Mean Platelet Vol. 9.5 fl (6.2-12.0); Monocyte# 0.86 X10^3/uL; Monocyte% 7.7 % (0-10); NRBC Flagged by Analyzer 0 % (0-5); Neutrophil % 49.5 % (47-70); Platelet Count 319 K/mm3 (150-450); RBC Distribution Width CV 13.2 % (11.6-14.6); Red Blood Count 4.79 M/mm3 (4.2-5.4); White Blood Count 11.1 K/mm3 (4.4-11.0)
[2022-04-24 17:36] LABS: Anion Gap 6 (5-15); BUN 16 mg/dL (7-18); BUN/Creat Ratio 20.2 RATIO (10-20); Calcium,Total 9.3 mg/dL (8.5-10.1); Chloride 107 mmol/L (98-107); Creatinine, Serum 0.79 mg/dL (0.55-1.02); EST Glomerular Filtration Rate 76 mL/min (>60); Est Glom Filt Rate - Afr Amer 92 mL/min (>60); Estimated Creatinine Clearance 43.91 ml/min; Glucose 104 mg/dL (74-106); Potassium 3.8 mmol/L (3.5-5.1); Sodium Level 142 mmol/L (136-145)
[2022-04-24 19:56] VITALS: BP 158/90; PULSE 61; RESP 17; O2SAT 97
== END 2022-04-24 21:02 | disposition home or self-care (01) ==
PROVIDERS: Emergency Provider Student in an Organized Health Care Education/Training Program; PCP Internal Medicine; Visit Provider Student in an Organized Health Care Education/Training Program
DX: R60.9 Edema, unspecified (principal); R68.84 Jaw pain; I25.10 Atherosclerotic heart disease of native coronary artery without angina pectoris; Z86.73 Personal history of transient ischemic attack (TIA), and cerebral infarction without residual deficits; I10 Essential (primary) hypertension; R59.0 Localized enlarged lymph nodes
CPT/HCPCS: 70491; 80048; 85025; 99283; Q9967; A4216

== ENCOUNTER 2022-05-05 12:40 | Observation (INO) | payer MEDICARE, BC, SELFPAY ==
[2022-05-05] VITALS (7 sets, daily range): BP systolic 110–152; BP diastolic 69–89; PULSE 62–87; RESP 16–19; TEMP 36.2–37.1; O2SAT 96–100; BMI 33.3; BMI 34.3
--- NOTE | 2022-05-05 13:06 | EKG12_ITS ---
Test Reason : DIZZINESS Blood Pressure : / mmHG Vent. Rate : 067 BPM Atrial Rate : 067 BPM P-R Int : 190 ms QRS Dur : 078 ms QT Int : 408 ms P-R-T Axes : 030 -54 -02 degrees QTc Int : 431 ms Normal sinus rhythm Left axis deviation Low voltage QRS Possible Anterolateral infarct , age undetermined Abnormal ECG Confirmed by DOUG VARGAS, ESSENCE ([id number]), supervising editor trailer JASON GOMEZ ([id number]) on 05/06/2022 1:40:19 PM Referred By: Confirmed By:ESSENCE CAMACHO MD
[2022-05-05] MEDS: 0.9% Normal Saline 1,000 ML 999 ML IV (13:20)
--- NOTE | 2022-05-05 13:22 | EX.ED.DYSGE1 ---
HPI <LEONEL Rachel - Last Filed: 05/05/22 17:48> History of Present Illness Chief Complaint: Dizziness Narrative Narrative: 72-year-old female with PMH of HTN, hypothyroidism presents with bilateral lower extremity pain and lightheadedness. She started her shift at [employer] around 8 AM and felt fine. About 2 hours later she started to have pain in both knees and calves. This caused her to have some difficulty walking and she felt lightheaded like she may pass out. She drank Gatorade and ate mashed potatoes and sat down and rested her head with no improvement. She went to the bathroom and could not ambulate back out normally and a customer had to assist her. She was brought in via EMS. She has no headache, chest pain, or shortness of breath. She has no back pain or radicular pain and no bladder or bowel incontinence. No recent fever, cough or illness. The only recent change is 2 weeks ago lisinopril was discontinued and she started Norvasc. PFSH <LEONEL Rachel - Last Filed: 05/05/22 17:48> [facility] Medical History Anemia Arthritis Atherosclerotic heart disease of [place] coronary artery without angina pectoris Barretts esophagus Cataracts, bilateral Cholecystitis Cholelithiasis with chronic cholecystitis DDD (degenerative disc disease), lumbar DVT (deep venous thrombosis) Dysmetabolic syndrome X Environmental allergies Essential hypertension Fibromyalgia Gallstones Ganglion cyst GERD (gastroesophageal reflux disease) History of atrial dilatation History of DVT (deep vein thrombosis) Hypothyroidism IBS (irritable bowel syndrome) Osteoarthritis PAD (peripheral artery disease) Pancreatitis Pancreatitis, gallstone Segmental and somatic dysfunction of lumbar region Segmental and somatic dysfunction of pelvic region Segmental and somatic dysfunction of thoracic region TIA (transient ischemic attack) Home Medications gabapentin 100 mg capsule 300 mg PO QHS 01/11/14 [History Last Taken 02/08/19] levothyroxine 50 mcg tablet 50 mcg PO DAILY 01/11/14 [History Last Taken 02/09/19] lisinopril 10 mg tablet 10 mg PO DAILY hypertension 06/02/18 [History Last Taken 02/09/19] diazepam 5 mg tablet 5 mg PO QHS PRN anxiety 01/13/19 [History Last Taken 11/25/19] aspirin 81 mg tablet,delayed release 81 mg PO DAILY@0800 02/09/19 [History Last Taken 02/09/19] acetaminophen 325 mg capsule 325 mg PO ONCE PRN 04/08/19 [History Last Taken Unknown] multivitamin 1 tab PO DAILY 04/08/19 [History Last Taken Unknown] white petrolatum-mineral oil 94 %-3 % eye ointment (Systane Nighttime) 1 applic ophthalmic (eye) BID-QID PRN 04/08/19 [History Last Taken Unknown] albuterol sulfate 90 mcg/actuation aerosol inhaler (Ventolin HFA) 2 puff inhalation Q4H PRN shortness of breath or wheezing #18 grams 09/20/19 [Rx Last Taken Unknown] cholecalciferol (vitamin D3) 125 mcg (5,000 unit) capsule 125 mcg PO DAILY 10/11/19 [History Last Taken Unknown] inhalational spacing device (BreatheRite MDI Spacer) #1 ea 10/11/19 [Rx Last Taken Unknown] budesonide 0.5 mg/2 mL suspension for nebulization 0.5 mg (2 mL) inhalation BID #120 mL 08/06/21 [Rx Last Taken Unknown] amlodipine 2.5 mg tablet (Norvasc) 2.5 mg PO DAILY #30 tabs 04/24/22 [Rx Last Taken Unknown] Allergy/AdvReac Type Severity Reaction Status Date / Time adhesive Allergy Unknown Verified 04/24/22 14:40 aspirin [From Aggrenox] Allergy Unknown Verified 04/24/22 14:40 benzocaine [From Cetacaine] Allergy Unknown Verified 04/24/22 14:40 butamben [From Cetacaine] Allergy Unknown Verified 04/24/22 14:40 cortisone [Cortisone] Allergy Unknown Verified 04/24/22 14:40 dipyridamole [From Aggrenox] Allergy Unknown Verified 04/24/22 14:40 lansoprazole [From Prevacid] Allergy Unknown Verified 04/24/22 14:40 latex Allergy Unknown Verified 04/24/22 14:40 meclizine Allergy Unknown Verified 04/24/22 14:40 methylprednisolone acetate Allergy Angioedema Verified 04/24/22 14:40 [From Depo-Medrol] metoprolol Allergy Unknown Verified 04/24/22 14:40 omeprazole [From Prilosec] Allergy Unknown Verified 04/24/22 14:40 omeprazole magnesium Allergy Unknown Verified 04/24/22 14:40 [From Prilosec] oxybutynin chloride Allergy Unknown Verified 04/24/22 14:40 [From Ditropan] povidone-iodine Allergy Unknown Verified 04/24/22 14:40 [From Betadine] soap [From Betadine] Allergy Unknown Verified 04/24/22 14:40 sulfamethoxazole Allergy Unknown Verified 04/24/22 14:40 [From Bactrim] tegaserod [From Zelnorm] Allergy Hives Verified 04/24/22 14:40 tegaserod hydrogen maleate Allergy Unknown Verified 04/24/22 14:40 [From Zelnorm] tetracaine [From Cetacaine] Allergy Unknown Verified 04/24/22 14:40 tolterodine tartrate Allergy Unknown Verified 04/24/22 14:40 [From Detrol] trimethoprim [From Bactrim] Allergy Unknown Verified 04/24/22 14:40 adhesive tape AdvReac Rash Verified 04/24/22 14:40 codeine AdvReac Unknown Verified 04/24/22 14:40 mirabegron [From Myrbetriq] AdvReac Other Verified 04/24/22 14:40 tizanidine AdvReac Other Verified 04/24/22 14:40 vaccine adjuvant system, AdvReac Rash Verified 04/24/22 14:40 [id number] liposomal [From Shingrix (PF)] varicella-zoster virus AdvReac Rash Verified 04/24/22 14:40 glycoprotein E, recombinant [From Shingrix (PF)] Family History Mother Cancer Celiac disease Presence of permanent cardiac pacemaker Father Cancer Sister Hypertension Other Colon cancer Myocardial infarction Surgical History H/O hernia repair History of cholecystectomy History of esophagogastroduodenoscopy (EGD) History of laparotomy History of Robbie fundoplication History of tonsillectomy Hx of cardiac cath Hx of colonoscopy Hx of dilation and curettage hx of filter removal Hx of local excision of skin lesion Hx of superior vena cava filter placement Hx of tubal ligation S/P gastroplasty Social History Smoking Status: Never smoker alcohol intake: never substance use type: does not use caffeine: Yes Type: coffee Number of servings: 2 what type of physical activity do you participate in: walking frequency: 3-4 times per week ROS <LEONEL Rachel - Last Filed: 05/05/22 17:48> ROS ED ROS Narrative Constitutional: Negative for fever, chills, malaise. Eyes: Negative for visual change. ENT: Negative for sore throat, ear pain, rhinorrhea. CVS: Negative for palpitations, chest pain, syncope. Respiratory: Negative for shortness of breath, cough, orthopnea. GI: Negative for abdominal pain, nausea, vomiting, diarrhea, constipation, melena, hematochezia. : Negative for dysuria, hematuria or frequency. Neuro: Negative for headache, motor/sensory dysfunction. Skin: Negative for rash, abscess, or wound. Musc: Negative for joint pain, swelling, trauma. Heme: Negative for easy bruising, bleeding, lymphadenopathy. EXAM <LEONEL Rachel - Last Filed: 05/05/22 17:48> Physical Exam Narrative Exam Narrative: CONST: Patient sitting in no acute distress. EYES: Normal inspection. ENT: Normal inspection, moist mucous membranes. NECK: Normal inspection. RESP: No respiratory distress, CTAB. CVS: Regular rate and rhythm, no murmur, no gallop. ABD: Soft and nontender, no guarding or rebound, nondistended. SKIN: Color normal, no rash, warm, dry, intact. EXTREMITIES: Normal appearance, no pedal edema. Both lower extremities have full ROM, soft compartments, 5/5 strength, normal sensation, 2+ DP pulse. NEURO: Oriented x4. PSYCH: Normal affect. Const Vital Signs: 05/05/22 12:41 05/05/22 13:24 05/05/22 13:24 Temperature 97.2 F L Temperature Source Temporal Pulse Rate 80 74 Respiratory Rate 16 19 H Respiratory Effort Normal Respiratory Pattern Normal Blood Pressure 152/84 H 146/79 H Blood Pressure [Sitting (for 1 minute prior to obtaining)] Blood Pressure [Standing (for 1 minute prior to obtaining)] Blood Pressure Mean 106 101 Blood Pressure Mean [Sitting (for 1 minute prior to obtaining)] Blood Pressure Mean [Standing (for 1 minute prior to obtaining)] Pulse Ox 98 97 Oxygen Delivery Method Room Air Room Air 05/05/22 14:29 Temperature Temperature Source Pulse Rate Respiratory Rate Respiratory Effort Respiratory Pattern Blood Pressure Blood Pressure [Sitting (for 1 minute prior to obtaining)] 128/80 H Blood Pressure [Standing (for 1 minute prior to obtaining)] 110/89 H Blood Pressure Mean Blood Pressure Mean [Sitting (for 1 minute prior to obtaining)] 96 Blood Pressure Mean [Standing (for 1 minute prior to obtaining)] 96 Pulse Ox Oxygen Delivery Method <Dr. Ellie Mullins DO - Last Filed: 05/05/22 16:15> Physical Exam Const Vital Signs: 05/05/22 12:41 05/05/22 13:24 05/05/22 13:24 Temperature 97.2 F L Temperature Source Temporal Pulse Rate 80 74 Respiratory Rate 16 19 H Respiratory Effort Normal Respiratory Pattern Normal Blood Pressure 152/84 H 146/79 H Blood Pressure [Sitting (for 1 minute prior to obtaining)] Blood Pressure [Standing (for 1 minute prior to obtaining)] Blood Pressure Mean 106 101 Blood Pressure Mean [Sitting (for 1 minute prior to obtaining)] Blood Pressure Mean [Standing (for 1 minute prior to obtaining)] Pulse Ox 98 97 Oxygen Delivery Method Room Air Room Air 05/05/22 14:29 Temperature Temperature Source Pulse Rate Respiratory Rate Respiratory Effort Respiratory Pattern Blood Pressure Blood Pressure [Sitting (for 1 minute prior to obtaining)] 128/80 H Blood Pressure [Standing (for 1 minute prior to obtaining)] 110/89 H Blood Pressure Mean Blood Pressure Mean [Sitting (for 1 minute prior to obtaining)] 96 Blood Pressure Mean [Standing (for 1 minute prior to obtaining)] 96 Pulse Ox Oxygen Delivery Method [facility] <LEONEL Rachel - Last Filed: 05/05/22 17:48> [facility] Narrative Medical decision making narrative: Patient complained of bilateral knee pain radiating down to her calves. She also felt lightheaded like she might pass out. She is having difficulty ambulating. She is awake and alert with overall unremarkable vital signs. She is neurologically intact. NIH is 0. She has no weakness in her legs, strong distal pulses, compartments are soft. She states it is painful no matter where I touch her leg whether it is on the anterior posterior portion so I do not think this is a DVT and that clinically does not make sense with the history. She has no back pain or radicular pain. Blood work was obtained. CBC, BMP, CK, UA all unremarkable. Patient was able to walk but had difficulty and was holding onto things in the hallway which is not typical for her. I discussed the case with the hospitalist who evaluated bedside. We added on bilateral knee x-rays which are negative. Patient will be brought in for observation due to difficulty ambulating. Lab Data Labs: Laboratory Results - last 24 hr 05/05/22 05/05/22 05/05/22 13:15 13:15 14:00 WBC 10.4 RBC 4.66 Hgb 14.3 Hct 43.6 MCV 93.6 MCH 30.7 MCHC 32.8 RDW Std Deviation 45.6 H RDW Coeff of Ronnie 13.3 Plt Count 310 MPV 9.4 Immature Gran % (Auto) 0.300 Neut % (Auto) 65.4 Lymph % (Auto) 21.7 [place] % (Auto) 6.9 Eos % (Auto) 4.8 Baso % (Auto) 0.9 Absolute Neuts (auto) 6.8 Absolute Lymphs (auto) 2.27 Nucleated RBC % 0 Sodium 137 Potassium 3.9 Chloride 105 Carbon Dioxide 25.0 Anion Gap 7 BUN 21 H Creatinine 0.98 Estim Creat Clear Calc 44.81 Est GFR (MDRD) Af Amer 72 Est GFR (MDRD) Non-Af 59 L BUN/Creatinine Ratio 21.5 H Glucose 183 H Calcium 9.2 Total Creatine Kinase Troponin I High Sens 3 Urine Color Straw Urine Clarity Clear Urine pH 6.0 Ur Specific [place] 1.010 Urine Protein Negative Urine Glucose (UA) Normal Urine Ketones Negative Urine Occult Blood Negative Urine Nitrite Negative Urine Bilirubin Negative Urine Urobilinogen Normal Ur Leukocyte Esterase 25 H Urine RBC 0 SEEN Urine WBC 0-5 SEEN Ur Squamous Epith Cells 0-5 SEEN Urine Bacteria 0 SEEN Urine Mucus 0 SEEN 05/05/22 05/05/22 15:35 15:35 WBC RBC Hgb Hct MCV MCH MCHC RDW Std Deviation RDW Coeff of Ronnie Plt Count MPV Immature Gran % (Auto) Neut % (Auto) Lymph % (Auto) [place] % (Auto) Eos % (Auto) Baso % (Auto) Absolute Neuts (auto) Absolute Lymphs (auto) Nucleated RBC % Sodium Potassium Chloride Carbon Dioxide Anion Gap BUN Creatinine Estim Creat Clear Calc Est GFR (MDRD) Af Amer Est GFR (MDRD) Non-Af BUN/Creatinine Ratio Glucose Calcium Total Creatine Kinase 186 Troponin I High Sens 4 Urine Color Urine Clarity Urine pH Ur Specific [place] Urine Protein Urine Glucose (UA) Urine Ketones Urine Occult Blood Urine Nitrite Urine Bilirubin Urine Urobilinogen Ur Leukocyte Esterase Urine RBC Urine WBC Ur Squamous Epith Cells Urine Bacteria Urine Mucus Radiography Diagnostic Testing: Clinical Impression(s) from Imaging Studies Knee X-Ray 05/05/22 16:30 IMPRESSION: Mild degenerative changes. Electronically Signed: Martin Velasquez DO at 17:21 EST , Knee X-Ray 05/05/22 16:30 IMPRESSION: Degenerative changes. Electronically Signed: Martin Velasquez DO at 17:19 EST , ED attending interpretation of bilateral knee x-ray shows no fracture or dislocation, mild arthritis. <Dr. Ellie Mullins, - Last Filed: 05/05/22 16:15> [facility] Lab Data Attestation: I reviewed the patient's lab results. Lab results narrative: I have personally performed a face to face assessment of the patient and have reviewed the EULALIA Note. I performed a substantive portion of the visit including all aspects of the following. My sy findings include: History is [patient seen in conjunction with physician assistant front desk manager. Patient presented to the emergency department with complaint of pain in her knees that started while she was standing at work and then had discomfort in lower back. Patient then subsequently began feeling lightheaded and feeling like she was in a pass out. Patient states that she had a hard time walking or keeping her balance. She denies headache or fall or head injury. Currently not experiencing back pain. Patient states she just does not feel right. Currently she feels chilled. Patient states that she recently had her blood pressure medicine changed from lisinopril to Norvasc. She denies fever cough or recent illness.] Exam is [HEENT-PERRLA, EOMI. Cranial nerves II through XII grossly intact. TMs clear. Mucous membranes moist. No adenopathy. Cardiovascular-regular rate and rhythm without murmur or ectopy Lungs-clear to auscultation, chest wall stable without crepitus or subcu emphysema Abdomen-normoactive bowel sounds, soft, nontender, no rebound or rigidity, no peritoneal signs. Neuro exam-no focal deficits noted. She complains of some paresthesias to both lower extremities. Patient able to hold both arms up for count of 10 and both legs of for count of 5. No facial droop. Extremities-intact ?4, normal range of motion, normal pulses, atraumatic] Medical Decison Making [patient presents with difficulty ambulating secondary to pain in both lower extremities from the knees down. She denies radiculopathy type symptoms. She denies fall or injury. She denies feeling dizzy currently. Basic labs obtained were unremarkable and urinalysis was unremarkable. EKG obtained was unremarkable. Patient has no focal deficits to indicate stroke. Symptoms seem to be bilateral in the lower extremities. There are no ropes or cords palpated in the lower extremities. We attempted to ambulate patient however she is requiring assistance because of pain and difficulty ambulating. This point Case will be discussed with hospitalist evaluate patient for admission.] Other additions or changes: [None] Labs: Laboratory Results - last 24 hr 05/05/22 05/05/22 05/05/22 13:15 13:15 14:00 WBC 10.4 RBC 4.66 Hgb 14.3 Hct 43.6 MCV 93.6 MCH 30.7 MCHC 32.8 RDW Std Deviation 45.6 H RDW Coeff of Ronnie 13.3 Plt Count 310 MPV 9.4 Immature Gran % (Auto) 0.300 Neut % (Auto) 65.4 Lymph % (Auto) 21.7 [place] % (Auto) 6.9 Eos % (Auto) 4.8 Baso % (Auto) 0.9 Absolute Neuts (auto) 6.8 Absolute Lymphs (auto) 2.27 Nucleated RBC % 0 Sodium 137 Potassium 3.9 Chloride 105 Carbon Dioxide 25.0 Anion Gap 7 BUN 21 H Creatinine 0.98 Estim Creat Clear Calc 44.81 Est GFR (MDRD) Af Amer 72 Est GFR (MDRD) Non-Af 59 L BUN/Creatinine Ratio 21.5 H Glucose 183 H Calcium 9.2 Total Creatine Kinase Troponin I High Sens 3 Urine Color Straw Urine Clarity Clear Urine pH 6.0 Ur Specific [place] 1.010 Urine Protein Negative Urine Glucose (UA) Normal Urine Ketones Negative Urine Occult Blood Negative Urine Nitrite Negative Urine Bilirubin Negative Urine Urobilinogen Normal Ur Leukocyte Esterase 25 H Urine RBC 0 SEEN Urine WBC 0-5 SEEN Ur Squamous Epith Cells 0-5 SEEN Urine Bacteria 0 SEEN Urine Mucus 0 SEEN 05/05/22 05/05/22 15:35 15:35 WBC RBC Hgb Hct MCV MCH MCHC RDW Std Deviation RDW Coeff of Ronnie Plt Count MPV Immature Gran % (Auto) Neut % (Auto) Lymph % (Auto) [place] % (Auto) Eos % (Auto) Baso % (Auto) Absolute Neuts (auto) Absolute Lymphs (auto) Nucleated RBC % Sodium Potassium Chloride Carbon Dioxide Anion Gap BUN Creatinine Estim Creat Clear Calc Est GFR (MDRD) Af Amer Est GFR (MDRD) Non-Af BUN/Creatinine Ratio Glucose Calcium Total Creatine Kinase 186 Troponin I High Sens 4 Urine Color Urine Clarity Urine pH Ur Specific [place] Urine Protein Urine Glucose (UA) Urine Ketones Urine Occult Blood Urine Nitrite Urine Bilirubin Urine Urobilinogen Ur Leukocyte Esterase Urine RBC Urine WBC Ur Squamous Epith Cells Urine Bacteria Urine Mucus Radiography Diagnostic Testing: Clinical Impression(s) from Imaging Studies Knee X-Ray 05/05/22 16:30 IMPRESSION: Mild degenerative changes. Electronically Signed: Martin Velasquez DO at 17:21 EST Reading Location ID and State: [facility] / [place] Tel [phone], Service support , Knee X-Ray 05/05/22 16:30 IMPRESSION: Degenerative changes. Electronically Signed: Martin Velasquez DO at 17:19 EST , EKG Initial EKG: Attestation: I personally reviewed and interpreted this EKG as follows: Comments: Sinus rhythm with a ventricular rate of 67 bpm with no acute ST segment changes Discharge Plan Dx/Rx/DC Orders Clinical Impression: Bilateral leg pain, Difficulty in walking, Dizziness Disposition Disposition: Acute Care [facility]
[2022-05-05 13:28] LABS: Absolute Lymphocyte Count 2.27 X10^3/uL (0.83-4.51); Absolute Neutrophil Count 6.8 X10^3/uL (2.0-7.7); Basophil# 0.09 X10^3/uL; Basophil% 0.9 % (0-1); Eosinophils% 4.8 % (0-5); Hematocrit 43.6 % (37-47); Hemoglobin 14.3 g/dL (12.0-15.0); Lymphocyte # 2.27 X10^3/ul (0.83-4.51); Lymphocyte % 21.7 % (19-41); Mean Corp Hgb Conc 32.8 g/dL (32-36); Mean Corpuscular Hgb 30.7 pg (27.0-32.0); Mean Corpuscular Volume 93.6 fL (81-99); Mean Platelet Vol. 9.4 fl (6.2-12.0); Monocyte# 0.72 X10^3/uL; Monocyte% 6.9 % (0-10); NRBC Flagged by Analyzer 0 % (0-5); Neutrophil # 6.83 X10^3/uL (2.7-7.7); Neutrophil % 65.4 % (47-70); Platelet Count 310 K/mm3 (150-450); RBC Distribution Width CV 13.3 % (11.6-14.6); RBC Distribution Width SD 45.6 fl (35.1-43.9); Red Blood Count 4.66 M/mm3 (4.2-5.4); White Blood Count 10.4 K/mm3 (4.4-11.0)
[2022-05-05 13:47] LABS: Anion Gap 7 (5-15); BUN 21 mg/dL (7-18); BUN/Creat Ratio 21.5 RATIO (10-20); Calcium,Total 9.2 mg/dL (8.5-10.1); Chloride 105 mmol/L (98-107); Creatinine, Serum 0.98 mg/dL (0.55-1.02); EST Glomerular Filtration Rate 59 mL/min (>60); Est Glom Filt Rate - Afr Amer 72 mL/min (>60); Estimated Creatinine Clearance 44.81 ml/min; Glucose 183 mg/dL (74-106); Potassium 3.9 mmol/L (3.5-5.1); Sodium Level 137 mmol/L (136-145); Troponin-I HS (w/2H Reflex) 3 pg/mL (3.0-54.0)
[2022-05-05 14:06] LABS: Bacteria 0 SEEN /hpf (None Seen); Mucous, Urine 0 SEEN /hpf (<or=2+); Red Blood Cells-Urine 0 SEEN /hpf (0-5)
[2022-05-05 14:08] LABS: Color, Urine Straw (Yellow); Glucose, Dipstick Normal (Normal); Ketone-Dipstick Negative (Negative); Leukocyte Esterase-Dipstick 25 /ul (Negative); Nitrite-Dipstick Negative (Negative); Occult Blood-Urine Negative /ul (Negative); Protein-Dipstick Negative (Negative); Urine Bilirubin Dipstick Negative (Negative); Urine Clarity Clear (Clear); Urine Urobilinogen Normal (Normal)
[2022-05-05 14:22] LABS: Squamous Epithelial Cells - UA 0-5 SEEN /hpf (5-10); White Blood Cells 0-5 SEEN /hpf (0-5)
[2022-05-05 15:27] LABS: Reflex Troponin-HS? (from REC) Y
[2022-05-05 15:59] LABS: Troponin-I HS 4 pg/mL (3.0-54.0)
--- NOTE | 2022-05-05 16:30 | RAD_ITS ---
INDICATION: PAIN EXAMINATION/TECHNIQUE: X-RAY - RIGHT XR Knee Complete 4 Views COMPARISON: None. FINDINGS: SOFT TISSUES: No soft tissue swelling or gas. No radiopaque foreign body. BONES/JOINTS: No acute fracture or subluxation.. Degenerative spurring at the medial femorotibial compartments. Degenerative spurring and narrowing at the lateral femorotibial compartment.. No sclerotic or destructive changes observed. RAD/Knee 4 or More Views IMPRESSION: Degenerative changes. Electronically Signed: Martin Velasquez DO at 17:19 EST ,
--- NOTE | 2022-05-05 16:30 | RAD_ITS ---
INDICATION: pain EXAMINATION/TECHNIQUE: X-RAY - LEFT XR Knee Complete 4 Views or More 4 VIEWS COMPARISON: None. FINDINGS: SOFT TISSUES: No soft tissue swelling or gas. No radiopaque foreign body. BONES/JOINTS: No acute fracture or subluxation.. Mild degenerative spurring at the femoral tibial compartments.. Mild narrowing of the lateral femorotibial compartment. No sclerotic or destructive changes observed. RAD/Knee 4 or More Views IMPRESSION: Mild degenerative changes. Electronically Signed: Martin Velasquez DO at 17:21 EST ,
[2022-05-05 17:12] LABS: CPK Total, Creatine Kinase 186 U/L (26-192)
--- NOTE | 2022-05-05 17:50 | PCM.HP.STD ---
HPI - General General Date of Admission: 05/05/22 Date of Service: 05/05/22 Chief Complaint: Inability to walk - 1 day HPI Narrative EILEEN CHRISTINE, is a 72 F who presents with the above. 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 She was having difficulty walking. She describes the pain as dull, worse with walking. She could not walk and was carried by customer and her boss into the car to the hospital. She denied any tingling or numbness. She denied any history of trauma. No previous experience like this. Denied any fever or chills. Denied any recent illness. Her vitals in the ED showed blood pressure 152/84, heart rate 80, respiratory 16, temperature 97.2 F, oxygen sat was 98% on room air. WBC count was 10.4, hemoglobin 14.3, platelet count 310, CMP was unremarkable except for BUN of 21, creatinine 0.98. Troponin was 4. UA was unremarkable. X-rays of both knees show degenerative changes. [facility] Medical History Anemia Arthritis Atherosclerotic heart disease of [place] coronary artery without angina pectoris Barretts esophagus Cataracts, bilateral Cholecystitis Cholelithiasis with chronic cholecystitis DDD (degenerative disc disease), lumbar DVT (deep venous thrombosis) Dysmetabolic syndrome X Environmental allergies Essential hypertension Fibromyalgia Gallstones Ganglion cyst GERD (gastroesophageal reflux disease) History of atrial dilatation History of DVT (deep vein thrombosis) Hypothyroidism IBS (irritable bowel syndrome) Osteoarthritis PAD (peripheral artery disease) Pancreatitis Pancreatitis, gallstone Segmental and somatic dysfunction of lumbar region Segmental and somatic dysfunction of pelvic region Segmental and somatic dysfunction of thoracic region TIA (transient ischemic attack) Home Medications gabapentin 100 mg capsule 300 mg PO QHS 01/11/14 [History Last Taken 05/05/22] levothyroxine 50 mcg tablet 88 mcg PO DAILY 01/11/14 [History Last Taken 05/05/22] diazepam 5 mg tablet 5 mg PO QHS PRN anxiety 01/13/19 [History Last Taken 05/05/22] aspirin 81 mg tablet,delayed release 81 mg PO DAILY@0800 02/09/19 [History Last Taken 05/05/22] acetaminophen 325 mg capsule 500 mg PO ONCE PRN Pain 04/08/19 [History Last Taken 05/05/22] multivitamin 1 tab PO DAILY 04/08/19 [History Last Taken 05/05/22] white petrolatum-mineral oil 94 %-3 % eye ointment (Systane Nighttime) 1 applic ophthalmic (eye) QHS cataracts 04/08/19 [History Last Taken 05/04/22] albuterol sulfate 90 mcg/actuation aerosol inhaler (Ventolin HFA) 2 puff inhalation Q4H PRN shortness of breath or wheezing #18 grams 09/20/19 [Rx Last Taken Unknown] cholecalciferol (vitamin D3) 125 mcg (5,000 unit) capsule 125 mcg PO DAILY 10/11/19 [History Last Taken 05/05/22] inhalational spacing device (BreatheRite MDI Spacer) #1 ea 10/11/19 [Rx Last Taken Unknown] budesonide 0.5 mg/2 mL suspension for nebulization 0.5 mg (2 mL) inhalation BID #120 mL 08/06/21 [Rx Last Taken 05/04/22] amlodipine 2.5 mg tablet (Norvasc) 2.5 mg PO DAILY #30 tabs 04/24/22 [Rx Last Taken 05/05/22] Allergy/AdvReac Type Severity Reaction Status Date / Time adhesive Allergy Unknown Verified 04/24/22 14:40 aspirin [From Aggrenox] Allergy Unknown Verified 04/24/22 14:40 benzocaine [From Cetacaine] Allergy Unknown Verified 04/24/22 14:40 butamben [From Cetacaine] Allergy Unknown Verified 04/24/22 14:40 cortisone [Cortisone] Allergy Unknown Verified 04/24/22 14:40 dipyridamole [From Aggrenox] Allergy Unknown Verified 04/24/22 14:40 lansoprazole [From Prevacid] Allergy Unknown Verified 04/24/22 14:40 latex Allergy Unknown Verified 04/24/22 14:40 meclizine Allergy Unknown Verified 04/24/22 14:40 methylprednisolone acetate Allergy Angioedema Verified 04/24/22 14:40 [From Depo-Medrol] metoprolol Allergy Unknown Verified 04/24/22 14:40 omeprazole [From Prilosec] Allergy Unknown Verified 04/24/22 14:40 omeprazole magnesium Allergy Unknown Verified 04/24/22 14:40 [From Prilosec] oxybutynin chloride Allergy Unknown Verified 04/24/22 14:40 [From Ditropan] povidone-iodine Allergy Unknown Verified 04/24/22 14:40 [From Betadine] soap [From Betadine] Allergy Unknown Verified 04/24/22 14:40 sulfamethoxazole Allergy Unknown Verified 04/24/22 14:40 [From Bactrim] tegaserod [From Zelnorm] Allergy Hives Verified 04/24/22 14:40 tegaserod hydrogen maleate Allergy Unknown Verified 04/24/22 14:40 [From Zelnorm] tetracaine [From Cetacaine] Allergy Unknown Verified 04/24/22 14:40 tolterodine tartrate Allergy Unknown Verified 04/24/22 14:40 [From Detrol] trimethoprim [From Bactrim] Allergy Unknown Verified 04/24/22 14:40 adhesive tape AdvReac Rash Verified 04/24/22 14:40 codeine AdvReac Unknown Verified 04/24/22 14:40 mirabegron [From Myrbetriq] AdvReac Other Verified 04/24/22 14:40 tizanidine AdvReac Other Verified 04/24/22 14:40 vaccine adjuvant system, AdvReac Rash Verified 04/24/22 14:40 [id number] liposomal [From Shingrix (PF)] varicella-zoster virus AdvReac Rash Verified 04/24/22 14:40 glycoprotein E, recombinant [From Shingrix (PF)] Family History Mother Cancer Celiac disease Presence of permanent cardiac pacemaker Father Cancer Sister Hypertension Other Colon cancer Myocardial infarction Surgical History H/O hernia repair History of cholecystectomy History of esophagogastroduodenoscopy (EGD) History of laparotomy History of Robbie fundoplication History of tonsillectomy Hx of cardiac cath Hx of colonoscopy Hx of dilation and curettage hx of filter removal Hx of local excision of skin lesion Hx of superior vena cava filter placement Hx of tubal ligation S/P gastroplasty Social History Smoking Status: Never smoker alcohol intake: never substance use type: does not use caffeine: Yes Type: coffee Number of servings: 2 what type of physical activity do you participate in: walking frequency: 3-4 times per week ROS ROS Narrative Constitutional: Denies: Anorexia, Chills, Fever, Night Sweats, Weight Change Eyes: Denies: Blurred vision, Cataracts, Conjunctivae Inflammation, Pain, Redness, Vision Change HEENT: Denies: Difficulty Hearing, Difficulty Swallowing, Head Aches, Hearing Changes, Sinus Congestion, Sinus Drainage Cardiovascular: Denies: Chest Pain, Orthopnea, Palpitations Respiratory: Denies: Cough, Shortness of breath at rest, Sputum production Gastrointestinal: Denies: Abdominal Pain, Nausea, Vomiting Genitourinary: Denies: Dysuria Musculoskeletal: See HPI Skin: Denies: Rash, Wounds Neurological: Denies: Numbness, Tingling, Focal weakness Vital Signs Vital Signs Vital Signs: 05/05/22 12:41 05/05/22 13:24 05/05/22 13:24 Temperature 97.2 F L Temperature Source Temporal Pulse Rate 80 74 Respiratory Rate 16 19 H Respiratory Effort Normal Respiratory Pattern Normal Blood Pressure 152/84 H 146/79 H Blood Pressure [Sitting (for 1 minute prior to obtaining)] Blood Pressure [Standing (for 1 minute prior to obtaining)] Blood Pressure Mean 106 101 Blood Pressure Mean [Sitting (for 1 minute prior to obtaining)] Blood Pressure Mean [Standing (for 1 minute prior to obtaining)] Pulse Ox 98 97 Oxygen Delivery Method Room Air Room Air 05/05/22 14:29 Temperature Temperature Source Pulse Rate Respiratory Rate Respiratory Effort Respiratory Pattern Blood Pressure Blood Pressure [Sitting (for 1 minute prior to obtaining)] 128/80 H Blood Pressure [Standing (for 1 minute prior to obtaining)] 110/89 H Blood Pressure Mean Blood Pressure Mean [Sitting (for 1 minute prior to obtaining)] 96 Blood Pressure Mean [Standing (for 1 minute prior to obtaining)] 96 Pulse Ox Oxygen Delivery Method Weight Weight: 87.997 kg Body Mass Index (BMI) 33.3 Physical Exam Narrative Physical exam: General: Alert, Oriented x3, Cooperative HEENT: Atraumatic Oral: Moist Mucosa Neck: Supple Lungs: Diminished to auscultation Cardiovascular: HS I+II, regular, no murmurs Abdomen: Bowel Sounds Present, Soft, Non Tender Extremities: No edema, tenderness on palpating both lower legs below both knees. Skin: No rashes, No breakdown Neurological: Grossly intact Psych/Mental Status: Appropriate Results Lab / Micro Data Result Diagrams: 05/05/22 13:15 05/05/22 13:15 Labs: Laboratory Results - last 24 hr 05/05/22 13:15: WBC 10.4, RBC 4.66, Hgb 14.3, Hct 43.6, MCV 93.6, MCH 30.7, MCHC 32.8, RDW Std Deviation 45.6 H, RDW Coeff of Ronnie 13.3, Plt Count 310, MPV 9.4, Immature Gran % (Auto) 0.300, Neut % (Auto) 65.4, Lymph % (Auto) 21.7, Hall % (Auto) 6.9, Eos % (Auto) 4.8, Baso % (Auto) 0.9, Absolute Neuts (auto) 6.8, Absolute Lymphs (auto) 2.27, Nucleated RBC % 0 05/05/22 13:15: Sodium 137, Potassium 3.9, Chloride 105, Carbon Dioxide 25.0, Anion Gap 7, BUN 21 H, Creatinine 0.98, Estim Creat Clear Calc 44.81, Est GFR (MDRD) Af Amer 72, Est GFR (MDRD) Non-Af 59 L, BUN/Creatinine Ratio 21.5 H, Glucose 183 H, Calcium 9.2, Troponin I High Sens 3 05/05/22 14:00: Urine Color Straw, Urine Clarity Clear, Urine pH 6.0, Ur Specific [place] 1.010, Urine Protein Negative, Urine Glucose (UA) Normal, Urine Ketones Negative, Urine Occult Blood Negative, Urine Nitrite Negative, Urine Bilirubin Negative, Urine Urobilinogen Normal, Ur Leukocyte Esterase 25 H, Urine RBC 0 SEEN, Urine WBC 0-5 SEEN, Ur Squamous Epith Cells 0-5 SEEN, Urine Bacteria 0 SEEN, Urine Mucus 0 SEEN 05/05/22 15:35: Troponin I High Sens 4 05/05/22 15:35: Total Creatine Kinase 186 Radiology Impression Knee X-Ray 05/05/22 16:30 IMPRESSION: Mild degenerative changes. Electronically Signed: Martin Velasquez DO at 17:21 EST Reading Location ID and State: [facility] / [place] Tel [phone], Service support , Knee X-Ray 05/05/22 16:30 IMPRESSION: Degenerative changes. Electronically Signed: Martin DO Ron at 17:19 EST , Assessment & Plan Assessment/Plan (1) Bilateral leg pain: (2) Difficulty in walking: PLAN: Plan 1. Acute onset of bilateral lower extremity pain with inability to walk, unclear etiology for now Patient with reported history of peripheral neuropathy, on gabapentin No history of trauma. X-ray of the knee showed degenerative changes. Total CK is 186 We will admit to MedSurg, PT and OT to evaluate and treat Start Oxycodone as needed, continue with gabapentin 2. Hypertension, continue home medications -lisinopril, amlodipine Continue blood pressure management 3. Hypothyroidism, continue on synthroid 4. DVT PPx- Heparin SC Charges/Coding Addendum Addendum: Total time spent: 80 minutes of which more > 50% was spent in reviewing patient's chart, laboratory investigations, imaging, talking to emergency physician, taking history and physical examining patient and going over plan of care with patient and daughter at the bedside. Visit Charges Inpatient E&M: 67241 Init Hosp L3
[2022-05-05] MEDS: Acetaminophen 325 MG Tablet 650 MG PO (20:40)
[2022-05-05] MEDS: Heparin Injection (Vial) 5,000 UNIT/ML VIAL 5000 UNIT SC (20:40)
[2022-05-05] MEDS: 0.9% Saline Lock 10 ML Syringe IV (20:44)
[2022-05-05] MEDS: oxyCODONE 5 MG Tablet PO (22:46)
[2022-05-06 04:13] VITALS: BP 116/73; PULSE 57; RESP 18; TEMP 36.4; O2SAT 94
[2022-05-06] MEDS: Levothyroxine 88 MCG Tablet PO (04:24)
[2022-05-06] MEDS: Acetaminophen 325 MG Tablet 650 MG PO ×2 (04:24→11:44)
[2022-05-06] MEDS: Heparin Injection (Vial) 5,000 UNIT/ML VIAL 5000 UNIT SC (04:26)
[2022-05-06] MEDS: Budesonide Respules 0.5 MG/2 ML AMPUL.NEB. INHALATION (06:43)
[2022-05-06 06:44] VITALS: PULSE 61; RESP 18; O2SAT 95
[2022-05-06 06:48] LABS: Absolute Lymphocyte Count 3.48 X10^3/uL (0.83-4.51); Absolute Neutrophil Count 3.1 X10^3/uL (2.0-7.7); Basophil# 0.08 X10^3/uL; Eosinophil# 0.73 X10^3/uL; Hematocrit 40.8 % (37-47); Hemoglobin 13.2 g/dL (12.0-15.0); Lymphocyte # 3.48 X10^3/ul (0.83-4.51); Lymphocyte % 42.9 % (19-41); Mean Corp Hgb Conc 32.4 g/dL (32-36); Mean Corpuscular Hgb 30.6 pg (27.0-32.0); Mean Corpuscular Volume 94.7 fL (81-99); Mean Platelet Vol. 9.7 fl (6.2-12.0); Monocyte# 0.73 X10^3/uL; NRBC Flagged by Analyzer 0 % (0-5); Neutrophil # 3.07 X10^3/uL (2.7-7.7); Neutrophil % 37.9 % (47-70); Platelet Count 293 K/mm3 (150-450); RBC Distribution Width CV 13.4 % (11.6-14.6); RBC Distribution Width SD 46.9 fl (35.1-43.9); Red Blood Count 4.31 M/mm3 (4.2-5.4); White Blood Count 8.1 K/mm3 (4.4-11.0)
[2022-05-06 07:11] LABS: ALB/GLOB Ratio 0.9 RATIO (0.9-2.4); AST(SGOT) 22 U/L (15-37); Alanine Aminotransfer ALT/SGPT 27 U/L (13-56); Alkaline Phosphatase 59 U/L (45-117); Anion Gap 7 (5-15); BUN 12 mg/dL (7-18); Calcium,Total 8.6 mg/dL (8.5-10.1); Chloride 108 mmol/L (98-107); EST Glomerular Filtration Rate 75 mL/min (>60); Est Glom Filt Rate - Afr Amer 91 mL/min (>60); Estimated Creatinine Clearance 54.89 ml/min; Globulin 3.4 g/dL (2.2-4.2); Glucose 124 mg/dL (74-106); Potassium 3.5 mmol/L (3.5-5.1); Protein, Total 6.4 g/dL (6.4-8.2); Sodium Level 141 mmol/L (136-145)
--- NOTE | 2022-05-06 08:42 | PCM.PN.HOSP ---
Reason for Visit Reason for Visit: Leg pain Difficulty walking Subjective Subjective Mrs. Rojas is a 72-year-old female who presented to the emergency department yesterday with the inability to walk for 1 day. She has a history of chronic back pain and presented complaining of pain below both knees. She was having difficulty walking. She reported the pain was dull and worse with ambulation. She was able to walk and was therefore carried by a customer and her boss to her car and came to the hospital. She has no sensory changes and no recent trauma to her lower extremities. CBC was unremarkable on presentation. Chemistry panel was unremarkable other than hyperglycemia. Her CK was normal. Her UA was unremarkable. Ridging of her bilateral lower extremities showed only mild degenerative changes in bilateral knees. Objective Data Objective Data Vital Signs: Vital Signs Temp Pulse Resp BP Pulse Ox O2 Del Method 97.6 F L 61 18 116/73 95 Room Air 05/06/22 04:13 05/06/22 06:44 05/06/22 06:44 05/06/22 04:13 05/06/22 06:44 05/06/22 06:44 Oxygen Delivery Method Room Air Weight: 89.1 kg Body Mass Index (BMI) 34.3 Intake & Output: Intake and Output for Last 24 Hours 05/04/22 05/05/22 05/06/22 23:59 23:59 23:59 Intake Total 1000 / 1000 200 / 200 Output Total 650 / 650 Balance 1000 / 1000 -450 / -450 Lab / Micro Data Result Diagrams: 05/06/22 06:05 05/06/22 06:05 Labs: Laboratory Results - last 24 hr 05/05/22 13:15: WBC 10.4, RBC 4.66, Hgb 14.3, Hct 43.6, MCV 93.6, MCH 30.7, MCHC 32.8, RDW Std Deviation 45.6 H, RDW Coeff of Ronnie 13.3, Plt Count 310, MPV 9.4, Immature Gran % (Auto) 0.300, Neut % (Auto) 65.4, Lymph % (Auto) 21.7, [place] % (Auto) 6.9, Eos % (Auto) 4.8, Baso % (Auto) 0.9, Absolute Neuts (auto) 6.8, Absolute Lymphs (auto) 2.27, Nucleated RBC % 0 05/05/22 13:15: Sodium 137, Potassium 3.9, Chloride 105, Carbon Dioxide 25.0, Anion Gap 7, BUN 21 H, Creatinine 0.98, Estim Creat Clear Calc 44.81, Est GFR (MDRD) Af Amer 72, Est GFR (MDRD) Non-Af 59 L, BUN/Creatinine Ratio 21.5 H, Glucose 183 H, Calcium 9.2, Troponin I High Sens 3 05/05/22 14:00: Urine Color Straw, Urine Clarity Clear, Urine pH 6.0, Ur Specific [place] 1.010, Urine Protein Negative, Urine Glucose (UA) Normal, Urine Ketones Negative, Urine Occult Blood Negative, Urine Nitrite Negative, Urine Bilirubin Negative, Urine Urobilinogen Normal, Ur Leukocyte Esterase 25 H, Urine RBC 0 SEEN, Urine WBC 0-5 SEEN, Ur Squamous Epith Cells 0-5 SEEN, Urine Bacteria 0 SEEN, Urine Mucus 0 SEEN 05/05/22 15:35: Troponin I High Sens 4 05/05/22 15:35: Total Creatine Kinase 186 05/06/22 06:05: WBC 8.1, RBC 4.31, Hgb 13.2, Hct 40.8, MCV 94.7, MCH 30.6, MCHC 32.4, RDW Std Deviation 46.9 H, RDW Coeff of Ronnie 13.4, Plt Count 293, MPV 9.7, Immature Gran % (Auto) 0.200, Neut % (Auto) 37.9 L, Lymph % (Auto) 42.9 H, [place] % (Auto) 9.0, Eos % (Auto) 9.0 H, Baso % (Auto) 1.0, Absolute Neuts (auto) 3.1, Absolute Lymphs (auto) 3.48, Nucleated RBC % 0 05/06/22 06:05: Sodium 141, Potassium 3.5, Chloride 108 H, Carbon Dioxide 26.0, Anion Gap 7, BUN 12, Creatinine 0.80, Estim Creat Clear Calc 54.89, Est GFR (MDRD) Af Amer 91, Est GFR (MDRD) Non-Af 75, BUN/Creatinine Ratio 15.0, Glucose 124 H, Calcium 8.6, Total Bilirubin 0.60, AST 22, ALT 27, Alkaline Phosphatase 59, Total Protein 6.4, Albumin 3.0 L, Globulin 3.4, Albumin/Globulin Ratio 0.9 Radiography Diagnostic Testing: Radiology Impression Knee X-Ray 05/05/22 16:30 IMPRESSION: Mild degenerative changes. Electronically Signed: Martin Velasquez DO at 17:21 EST , Knee X-Ray 05/05/22 16:30 IMPRESSION: Degenerative changes. Electronically Signed: Martin Velasquez DO at 17:19 EST , Assessment & Plan Assessment/Plan (1) Bilateral leg pain: (2) Difficulty in walking: PLAN: Plan Acute B lateral distal lower extremity pain/inability to walk -Etiology is unclear -No trauma -X-rays of the knees only showed degenerative changes -CK is normal -PT/OT evaluation -Continue gabapentin -As needed narcotics ordered -May need placement if unable to ambulate independently Hypertension -Continue home lisinopril -Continue home amlodipine Hypothyroidism -Continue home levothyroxine -Check TSH History of asthma -No symptoms on presentation -Continue home inhalers -Continue outpatient follow-up with pulmonary medicine as previously recommended Chronic low back pain -Previous lumbar surgery with hardware -Continue chronic home pain medications Anxiety -Patient takes diazepam 5 mg at bedtime as needed -We will continue to avoid withdrawal however recommend weaning DVT prophylaxis -Continue heparin -SCDs Charges/Coding Visit Charges Inpatient E&M: 77308 Subs Hosp L2
[2022-05-06 08:46] VITALS: BP 127/86; PULSE 66; RESP 18; TEMP 37.2; O2SAT 97
[2022-05-06] MEDS: Aspirin E.C. 81 MG Tablet PO (08:47)
[2022-05-06 09:46] LABS: Thyroid Stim Hormone (TSH) 4.36 uIU/mL (0.358-3.74)
[2022-05-06] MEDS: amLODIPine 2.5 MG Tablet PO (10:02)
--- NOTE | 2022-05-06 10:07 | CASEMGMT ---
Addendum entered by Nena Carlson 05/06/22 14:23: SW back in to pt room to assist with completing Advanced Directives. Pt agreeable and named daughterErlinda as agent. SW provided pt with original and a copy. SW placed second copy on patient chart. WILLIAM Campo Original Note: Social Work Therapy team notified SW that pt has questions regarding HCPOA and LW. Pt wanted to know if daughter, who would be named agent needed to be present when the documents are completed. SW informed pt daughter would not need to be present. Pt asked SW to bring documents in to review and possibly complete later this day. SW took documents to pt room and will check back in later this day if time allows. Pt also asked about HHC. EDENILSON updated ROC[facility]O Pierre that pt is interested in this service. WILLIAM Campo
--- NOTE | 2022-05-06 11:56 | DS.PCM_ITS ---
Providers Date of Admission: 05/05/22 Date of Discharge: 05/06/22 Primary Care Physician: Dr. Miryam Riojas MD Reason For Visit: INABILITY TO WALK Diagnosis Discharge Diagnosis (1) Bilateral leg pain: Status: Acute Code(s): M79.604 - Pain in right leg; M79.605 - Pain in left leg (2) Difficulty in walking: Status: Acute Code(s): R26.2 - Difficulty in walking, not elsewhere classified Medications at Discharge Home Medications gabapentin 100 mg capsule 300 mg PO QHS 01/11/14 levothyroxine 50 mcg tablet 88 mcg PO DAILY 01/11/14 diazepam 5 mg tablet 5 mg PO QHS PRN anxiety 01/13/19 aspirin 81 mg tablet,delayed release 81 mg PO DAILY@0800 02/09/19 multivitamin 1 tab PO DAILY 04/08/19 white petrolatum-mineral oil 94 %-3 % eye ointment (Systane Nighttime) 1 applic ophthalmic (eye) QHS cataracts 04/08/19 albuterol sulfate 90 mcg/actuation aerosol inhaler (Ventolin HFA) 2 puff inhalation Q4H PRN shortness of breath or wheezing #18 grams 09/20/19 cholecalciferol (vitamin D3) 125 mcg (5,000 unit) capsule 125 mcg PO DAILY 10/11/19 inhalational spacing device (BreatheRite MDI Spacer) #1 ea 10/11/19 budesonide 0.5 mg/2 mL suspension for nebulization 0.5 mg (2 mL) inhalation BID #120 mL 08/06/21 amlodipine 2.5 mg tablet (Norvasc) 2.5 mg PO DAILY #30 tabs 04/24/22 acetaminophen 500 mg capsule 500 mg PO Q6H PRN Pain 05/05/22 Hospital Course Operations None Procedures - (X-rays of bilateral knees) Summary of Care Provided Minutes Spent on Discharge: 25 Hospital Course: Mrs. Rojas is a 72-year-old female who presented to the emergency department yesterday with the inability to walk for 1 day. She has a history of chronic back pain and presented complaining of pain below both knees. She was having difficulty walking. She reported the pain was dull and worse with ambulation. She was able to walk and was therefore carried by a customer and her boss to her car and came to the hospital. She has no sensory changes and no recent trauma to her lower extremities. CBC was unremarkable on presentation. Chemistry panel was unremarkable other than hyperglycemia. Her CK was normal. Her UA was unremarkable. Imaging of her bilateral lower extremities showed only mild degenerative changes in bilateral knees. I evaluated her the morning after presentation. She states that the pain is pretty much resolved and was able to ambulate around the room with a walker. She states she does have some slight increased pain with ambulation but it is nowhere near what it was the day previous. I did assess a D-dimer which was found to be 0.5 and when corrected for age is normal leaving DVT very low likelihood. Patient did not have any calf tenderness with palpation on the day of discharge. She was able to ambulat e independently with an assistive device and wanted to go home. She did ask about home health care and this was set up for her prior to discharge. The etiology of her pain is unclear at this time. She has known history of neuropathy but I doubt that this presentation was likely related to that. It seems as if her symptoms started resolve as quickly as they occurred. She was discharged home in stable condition with home health care on 05/06/2022. Discharge diagnoses: Acute bilateral lower extremity pain from knee to feet-resolving Inability ambulate-resolved Hypertension Hypothyroidism CAD PAF left GERD PAD Degenerative disc disease History of lumbar spine surgery with chronic low back pain Asthma Sarmiento's esophagus Obesity Physical Exam Const alert, oriented x3, no apparent distress, healthy appearing and well nourished Constitutional Narrative: Older, obese, white female, sitting up in a chair at the bedside, appears comfortable and nontoxic, watching television General Appearance: cooperative, comfortable, well kempt and well developed Orientation / Consciousness: awake, oriented to person, oriented to place and oriented to time Exam Limitations: no limitations Nutritional Appearance: obese HEENT normocephalic, head/scalp atraumatic, hearing grossly normal bilaterally and moist oral mucous membranes HEENT Narrative: Mallampati 3, no thrush Resp normal respiratory effort, no retractions, no use of accessory muscles and clear to auscultation bilaterally Auscultation: Negative for crackles, rhonchi or wheezes Cardio regular rate, regular rhythm, S1 normal heart sound, S2 normal heart sound, no murmurs, no rub, no gallops and no clicks GI normal to inspection, nondistended, normoactive bowel sounds, soft to palpation and non-tender Extremity no clubbing, cyanosis or edema Extremity Narrative: No pain with bilateral palpation of distal lower extremities, no change in skin color or texture Neuro oriented x3, CN's II-XII intact bilaterally, moves all extremities, no focal motor deficits and No no sensory deficits noted Neuro Narrative: Neuropathy noted in bilateral feet-chronic, generalized weakness-proximal greater than distal Speech: speech normal Psych affect normal Weight / BMI Weight Weight: 89.1 kg Body Mass Index (BMI) 34.3 ABG / Lab / Microbiology Data Result Diagrams: 05/06/22 06:05 05/06/22 06:05 Laboratory: Laboratory Results - last 24 hr 05/05/22 13:15: WBC 10.4, RBC 4.66, Hgb 14.3, Hct 43.6, MCV 93.6, MCH 30.7, MCHC 32.8, RDW Std Deviation 45.6 H, RDW Coeff of Ronnie 13.3, Plt Count 310, MPV 9.4, Immature Gran % (Auto) 0.300, Neut % (Auto) 65.4, Lymph % (Auto) 21.7, [place] % (Auto) 6.9, Eos % (Auto) 4.8, Baso % (Auto) 0.9, Absolute Neuts (auto) 6.8, Absolute Lymphs (auto) 2.27, Nucleated RBC % 0 05/05/22 13:15: Sodium 137, Potassium 3.9, Chloride 105, Carbon Dioxide 25.0, Anion Gap 7, BUN 21 H, Creatinine 0.98, Estim Creat Clear Calc 44.81, Est GFR (MDRD) Af Amer 72, Est GFR (MDRD) Non-Af 59 L, BUN/Creatinine Ratio 21.5 H, Glucose 183 H, Calcium 9.2, Troponin I High Sens 3 05/05/22 14:00: Urine Color Straw, Urine Clarity Clear, Urine pH 6.0, Ur Specific [place] 1.010, Urine Protein Negative, Urine Glucose (UA) Normal, Urine Ketones Negative, Urine Occult Blood Negative, Urine Nitrite Negative, Urine Bilirubin Negative, Urine Urobilinogen Normal, Ur Leukocyte Esterase 25 H, Urine RBC 0 SEEN, Urine WBC 0-5 SEEN, Ur Squamous Epith Cells 0-5 SEEN, Urine Bacteria 0 SEEN, Urine Mucus 0 SEEN 02/19/23 15:35: Troponin I High Sens 4 05/05/22 15:35: Total Creatine Kinase 186 05/06/22 06:05: WBC 8.1, RBC 4.31, Hgb 13.2, Hct 40.8, MCV 94.7, MCH 30.6, MCHC 32.4, RDW Std Deviation 46.9 H, RDW Coeff of Ronnie 13.4, Plt Count 293, MPV 9.7, Immature Gran % (Auto) 0.200, Neut % (Auto) 37.9 L, Lymph % (Auto) 42.9 H, Calvert % (Auto) 9.0, Eos % (Auto) 9.0 H, Baso % (Auto) 1.0, Absolute Neuts (auto) 3.1, Absolute Lymphs (auto) 3.48, Nucleated RBC % 0 05/06/22 06:05: Sodium 141, Potassium 3.5, Chloride 108 H, Carbon Dioxide 26.0, Anion Gap 7, BUN 12, Creatinine 0.80, Estim Creat Clear Calc 54.89, Est GFR (MDRD) Af Amer 91, Est GFR (MDRD) Non-Af 75, BUN/Creatinine Ratio 15.0, Glucose 124 H, Calcium 8.6, Total Bilirubin 0.60, AST 22, ALT 27, Alkaline Phosphatase 59, Total Protein 6.4, Albumin 3.0 L, Globulin 3.4, Albumin/Globulin Ratio 0.9 05/06/22 06:05: TSH 4.36 H 05/06/22 10:35: D-Dimer Quant (PE/DVT) 0.50 H Radiography Diagnostic Testing: Radiology Impression Knee X-Ray 05/05/22 16:30 IMPRESSION: Mild degenerative changes. Electronically Signed: Martin Velasquez DO at 17:21 EST , Knee X-Ray 05/05/22 16:30 IMPRESSION: Degenerative changes. Electronically Signed: Martin Velasquez DO at 17:19 EST , D/C Instructions Discharge Diet: Low fat / Low cholesterol Discharge Activity: Return to Normal Activity Return to work on: 05/08/22 Weight Bearing Status: Weight bearing as tolerated Additional Activity Instructions: Use walker as needed for ambulation until balance and pain improved Meaningful Use Info Meaningful Use Diagnoses (Choose all that apply): None applicable Discharge Plan Admission Admit Date/Time: 05/05/22 17:41 Primary Reason for Your Visit: Bilateral lower extremity leg pain/inability ambulate Attending Provider: Shelia Campos Primary Care Provider: Miryam Riojas Consulting Providers: Yuridia Bernabe Discharge Orders/Prescriptions Prescriptions: Continued multivitamin Tablet 1 tab PO DAILY Systane Nighttime 94-3 % ointment 1 applic OPHTHALMIC QHS diazepam 5 mg tablet 5 mg PO QHS PRN (Reason: anxiety) (DME) BreatheRite MDI Spacer Spacer See Rx Instructions .ROUTE .MEDSUPPLY Qty: 1 0RF Rx Instructions: As directed cholecalciferol (vitamin D3) 125 mcg (5,000 unit) capsule 125 mcg PO DAILY albuterol sulfate [Ventolin HFA] 90 mcg/actuation HFA aerosol inhaler 2 puff INHALATION Q4H PRN (Reason: shortness of breath or wheezing) Qty: 18 6RF budesonide 0.5 mg/2 mL suspension for nebulization 0.5 mg INHALATION BID Qty: 120 6RF Rx Instructions: J45.40 levothyroxine 50 MCG tablet 88 mcg PO DAILY gabapentin 100 MG capsule 300 mg PO QHS aspirin 81 MG tablet 81 mg PO DAILY@0800 amlodipine [Norvasc] 2.5 mg tablet 2.5 mg PO DAILY Qty: 30 0RF acetaminophen 500 mg Capsule 500 mg PO Q6H PRN (Reason: Pain) Referrals / Follow Up: Miryam Riojas MD [Primary Care Provider] - Disposition Disposition (needs filled in before D/C Order can be placed): Home Health Service Charges/Coding Visit Charges Inpatient E&M: 00132 Disch Hosp
--- NOTE | 2022-05-06 12:58 | CASEMGMT ---
Addendum entered by Gabby Valentine 05/06/22 13:51: Received tc back from Kailyn, pt is accepted and [facility] will see her on Friday. ROCÍO BURKS in to pt room to make aware. Pt denies further homegoing needs. Original Note: ROCÍO BURKS in to pt room to discuss dc planning. Pt states she lives in a single story home with 2 steps to enter with double rails. Pt has a walker in her car and her house and also a rollator. Pt has grab bars in the shower, shower chair and handicap toilet. Pt also has a medic alert through her cable. Pt states she is not going to be going back to work for some time as she cannot walk properly. Pt denies hx of HHC. Pt is interested in having HHC. Patient was provided a list of HHC providers including quality and resource use data and consistent with the patient?s preferred geographic region, medical needs, and insurance network were provided from the [employer] Guide. Pt chose [facility]. Pt denies further needs at this time. TC to Kailyn at [facility], referral made, will await returned call for acceptance.
--- NOTE | 2022-05-06 13:46 | PHA.DC.MR ---
Pharmacy Service has performed discharge medication reconciliation for this patient. The patient's discharge medication list was reviewed for discrepancies and discrepancies were resolved. Home Medications gabapentin 100 mg capsule 300 mg PO QHS 01/11/14 levothyroxine 50 mcg tablet 88 mcg PO DAILY 01/11/14 diazepam 5 mg tablet 5 mg PO QHS PRN anxiety 01/13/19 aspirin 81 mg tablet,delayed release 81 mg PO DAILY@0800 02/09/19 multivitamin 1 tab PO DAILY 04/08/19 white petrolatum-mineral oil 94 %-3 % eye ointment (Systane Nighttime) 1 applic ophthalmic (eye) QHS cataracts 04/08/19 albuterol sulfate 90 mcg/actuation aerosol inhaler (Ventolin HFA) 2 puff inhalation Q4H PRN shortness of breath or wheezing #18 grams 09/20/19 cholecalciferol (vitamin D3) 125 mcg (5,000 unit) capsule 125 mcg PO DAILY 10/11/19 inhalational spacing device (BreatheRite MDI Spacer) #1 ea 10/11/19 budesonide 0.5 mg/2 mL suspension for nebulization 0.5 mg (2 mL) inhalation BID #120 mL 08/06/21 amlodipine 2.5 mg tablet (Norvasc) 2.5 mg PO DAILY #30 tabs 04/24/22 acetaminophen 500 mg capsule 500 mg PO Q6H PRN Pain 05/05/22
[2022-05-06 14:28] VITALS: BP 124/70; PULSE 68; RESP 18; TEMP 36.8; O2SAT 98
== END 2022-05-06 15:55 | disposition home health service (06) ==
LOC: ED 17:48 → MS3 18:51
PROVIDERS: Physician Assistant; Admitting Provider Internal Medicine; Emergency Provider Emergency Medicine; PCP Internal Medicine; Visit Provider Internal Medicine
DX: M79.604 Pain in right leg (principal); I73.9 Peripheral vascular disease, unspecified; I48.0 Paroxysmal atrial fibrillation; M25.561 Pain in right knee; R42 Dizziness and giddiness; M79.7 Fibromyalgia; M79.605 Pain in left leg; G89.29 Other chronic pain; E03.9 Hypothyroidism, unspecified; J45.909 Unspecified asthma, uncomplicated; I10 Essential (primary) hypertension; R26.2 Difficulty in walking, not elsewhere classified; E66.9 Obesity, unspecified; Z79.82 Long term (current) use of aspirin; I25.10 Atherosclerotic heart disease of native coronary artery without angina pectoris; R73.9 Hyperglycemia, unspecified; M17.0 Bilateral primary osteoarthritis of knee; Z79.899 Other long term (current) drug therapy; Z79.890 Hormone replacement therapy; Z68.33 Body mass index [BMI] 33.0-33.9, adult; Z86.718 Personal history of other venous thrombosis and embolism; M99.02 Segmental and somatic dysfunction of thoracic region; M99.03 Segmental and somatic dysfunction of lumbar region; M99.05 Segmental and somatic dysfunction of pelvic region
CPT/HCPCS: 36415; 73564; 80048; 80053; 81001; 82550; 84443; 84484; 85025; 85379; 93005; 94640; 96360; 96372; 97162; 97166; 99221; 99252; 99285; J7030; A4216; G0378; G0463

== ENCOUNTER 2022-08-05 11:30 | Emergency (ER) | payer MEDICARE, BC, SELFPAY ==
[2022-08-05 11:31] VITALS: BP 161/84; PULSE 84; RESP 16; TEMP 36.6; O2SAT 97; BMI 33.3
[2022-08-05 11:48] LABS: Absolute Lymphocyte Count 2.49 X10^3/uL (0.83-4.51); Absolute Neutrophil Count 5.9 X10^3/uL (2.0-7.7); Basophil# 0.12 X10^3/uL; Basophil% 1.2 % (0-1); Eosinophil# 0.53 X10^3/uL; Eosinophils% 5.4 % (0-5); Hematocrit 44.1 % (37-47); Hemoglobin 14.8 g/dL (12.0-15.0); Lymphocyte # 2.49 X10^3/ul (0.83-4.51); Lymphocyte % 25.3 % (19-41); Mean Corp Hgb Conc 33.6 g/dL (32-36); Mean Corpuscular Hgb 31.3 pg (27.0-32.0); Mean Corpuscular Volume 93.2 fL (81-99); Mean Platelet Vol. 9.4 fl (6.2-12.0); Monocyte# 0.73 X10^3/uL; Monocyte% 7.4 % (0-10); NRBC Flagged by Analyzer 0 % (0-5); Neutrophil # 5.94 X10^3/uL (2.7-7.7); Neutrophil % 60.4 % (47-70); Platelet Count 326 K/mm3 (150-450); RBC Distribution Width CV 13.1 % (11.6-14.6); RBC Distribution Width SD 44.8 fl (35.1-43.9); Red Blood Count 4.73 M/mm3 (4.2-5.4); White Blood Count 9.8 K/mm3 (4.4-11.0)
[2022-08-05 12:03] LABS: ALB/GLOB Ratio 0.8 RATIO (0.9-2.4); AST(SGOT) 23 U/L (15-37); Alanine Aminotransfer ALT/SGPT 37 U/L (13-56); Albumin, Serum 3.5 g/dL (3.2-5.0); Alkaline Phosphatase 93 U/L (45-117); Anion Gap 6 (5-15); BUN 15 mg/dL (7-18); BUN/Creat Ratio 16.9 RATIO (10-20); Calcium,Total 9.5 mg/dL (8.5-10.1); Chloride 107 mmol/L (98-107); Creatinine, Serum 0.89 mg/dL (0.55-1.02); EST Glomerular Filtration Rate 66 mL/min (>60); Est Glom Filt Rate - Afr Amer 80 mL/min (>60); Estimated Creatinine Clearance 49.34 ml/min; Globulin 4.2 g/dL (2.2-4.2); Glucose 110 mg/dL (74-106); Potassium 4.1 mmol/L (3.5-5.1); Protein, Total 7.7 g/dL (6.4-8.2); Sodium Level 140 mmol/L (136-145)
--- NOTE | 2022-08-05 14:25 | RAD_ITS ---
STUDY: XR Abdomen 1 View 08/05/2022 2:30 PM REASON FOR EXAM: Female, 72 years old. ABDOMINAL PAIN constipation TECHNIQUE: XR Abdomen 1 View COMPARISON: None FINDINGS: Normal visualized lung bases. There is a moderate amount of colonic fecal material. There is no demonstrated free abdominal air. The visualized liver, spleen and kidneys are grossly normal in size and morphology. Normal soft tissue structures. There are diffuse degenerative changes of the visualized lumbar spine. There is scoliosis of the lumbar spine. Lumbar spinal fixation hardware at L5-S1. Degenerative findings of the hips. RAD/Abdomen Single View IMPRESSION: Constipation. Electronically Signed: Olivier Escamilla MD at 14:52 EDT ,
--- NOTE | 2022-08-05 14:26 | ED.VIS.GI ---
HPI HPI - GI History of Present Illness Chief Complaint: Abd Pain Detail of Chief Complaint: Constipation Informant: patient Abdominal Pain/Flank Pain Onset: Days Context: Gradual Onset Timing: Continuous Quality: Cramping Location: Diffuse Current Severity: Mild Maximum Severity: Mild Worsened by: Nothing Relieved by: Nothing Nausea/Vomiting/Emesis GI Symptom: Positive for Nausea; Negative for Vomiting Onset: Days Severity: Mild Diarrhea/Melena/Hematochezia GI Symptom: Negative for Diarrhea, Melena or Hematochezia Associated Symptoms Associated Symptoms: Negative for Dysuria, Frequency, Hematuria or Urgency Narrative Narrative: 73-year-old female extensive past medical history of anemia, CAD, Sarmiento's, irritable bowel, TIA and gallstone pancreatitis. She is able to to ligation and cholecystectomy. States for about a week she has been constipated. Very small bowel movement within the last 24 hours that she said was hard. Denies any melena. No fever. Diffuse abdominal cramping. She had nausea without vomiting. No dysuria. No fever. States she feels dehydrated. Prior similar symptoms: Yes Recent Illness/Hospitalization: Yes PFSH [facility] Medical History Anemia Arthritis Atherosclerotic heart disease of [place] coronary artery without angina pectoris Barretts esophagus Cataracts, bilateral Cholecystitis Cholelithiasis with chronic cholecystitis DDD (degenerative disc disease), lumbar DVT (deep venous thrombosis) Dysmetabolic syndrome X Environmental allergies Essential hypertension Fibromyalgia Gallstones Ganglion cyst GERD (gastroesophageal reflux disease) History of atrial dilatation History of DVT (deep vein thrombosis) Hypothyroidism IBS (irritable bowel syndrome) Osteoarthritis PAD (peripheral artery disease) Pancreatitis Pancreatitis, gallstone Segmental and somatic dysfunction of lumbar region Segmental and somatic dysfunction of pelvic region Segmental and somatic dysfunction of thoracic region TIA (transient ischemic attack) Home Medications gabapentin 100 mg capsule 300 mg PO QHS 01/11/14 [History Last Taken 05/05/22] diazepam 5 mg tablet 5 mg PO QHS PRN anxiety 01/13/19 [History Last Taken 05/05/22] aspirin 81 mg tablet,delayed release 81 mg PO DAILY@0800 02/09/19 [History Last Taken 05/05/22] multivitamin 1 tab PO DAILY 04/08/19 [History Last Taken 05/05/22] white petrolatum-mineral oil 94 %-3 % eye ointment (Systane Nighttime) 1 applic ophthalmic (eye) QHS cataracts 04/08/19 [History Last Taken 05/04/22] albuterol sulfate 90 mcg/actuation aerosol inhaler (Ventolin HFA) 2 puff inhalation Q4H PRN shortness of breath or wheezing #18 grams 09/20/19 [Rx Last Taken Unknown] cholecalciferol (vitamin D3) 125 mcg (5,000 unit) capsule 125 mcg PO DAILY 10/11/19 [History Last Taken 05/05/22] inhalational spacing device (BreatheRite MDI Spacer) #1 ea 10/11/19 [Rx Last Taken Unknown] acetaminophen 500 mg capsule 500 mg PO Q6H PRN Pain 05/05/22 [History Last Taken Unknown] amlodipine 5 mg tablet 5 mg PO DAILY 07/26/22 [History Last Taken Unknown] esomeprazole magnesium 20 mg capsule,delayed release 20 mg PO DAILY 07/26/22 [History Last Taken Unknown] fluticasone furoate 100 mcg-vilanterol 25 mcg/dose inhalation powder (Breo Ellipta) 1 inh inhalation DAILY 07/26/22 [History Last Taken Unknown] levothyroxine 88 mcg tablet 88 mcg PO DAILY 07/26/22 [History Last Taken Unknown] lubiprostone 8 mcg capsule 8 mcg PO DAILY 07/26/22 [History Last Taken Unknown] spironolactone 25 mg tablet 25 mg PO DAILY #90 tabs 07/26/22 [Rx Last Taken Unknown] albuterol sulfate 2.5 mg/0.5 mL solution for nebulization 2.5 mg (0.5 mL) inhalation Q4H PRN shortness of breath or wheezing #180 ea 07/30/22 [Rx Last Taken Unknown] polyethylene glycol 3350 17 gram/dose oral powder (Miralax) 17 g PO DAILY #119 grams 08/05/22 [Rx Last Taken Unknown] Allergy/AdvReac Type Severity Reaction Status Date / Time adhesive Allergy Unknown Verified 07/26/22 13:54 aspirin [From Aggrenox] Allergy Unknown Verified 07/26/22 13:54 benzocaine [From Cetacaine] Allergy Unknown Verified 07/26/22 13:54 butamben [From Cetacaine] Allergy Unknown Verified 07/26/22 13:54 cortisone [Cortisone] Allergy Unknown Verified 07/26/22 13:54 dipyridamole [From Aggrenox] Allergy Unknown Verified 07/26/22 13:54 lansoprazole [From Prevacid] Allergy Unknown Verified 07/26/22 13:54 latex Allergy Unknown Verified 07/26/22 13:54 meclizine Allergy Unknown Verified 07/26/22 13:54 methylprednisolone acetate Allergy Angioedema Verified 07/26/22 13:54 [From Depo-Medrol] metoprolol Allergy Unknown Verified 07/26/22 13:54 omeprazole [From Prilosec] Allergy Unknown Verified 07/26/22 13:54 omeprazole magnesium Allergy Unknown Verified 07/26/22 13:54 [From Prilosec] oxybutynin chloride Allergy Unknown Verified 07/26/22 13:54 [From Ditropan] povidone-iodine Allergy Unknown Verified 07/26/22 13:54 [From Betadine] soap [From Betadine] Allergy Unknown Verified 07/26/22 13:54 sulfamethoxazole Allergy Unknown Verified 07/26/22 13:54 [From Bactrim] tegaserod [From Zelnorm] Allergy Hives Verified 07/26/22 13:54 tegaserod hydrogen maleate Allergy Unknown Verified 07/26/22 13:54 [From Zelnorm] tetracaine [From Cetacaine] Allergy Unknown Verified 07/26/22 13:54 tolterodine tartrate Allergy Unknown Verified 07/26/22 13:54 [From Detrol] trimethoprim [From Bactrim] Allergy Unknown Verified 07/26/22 13:54 lisinopril AdvReac Intermediate Angioedema Verified 07/26/22 14:33 adhesive tape AdvReac Rash Verified 07/26/22 13:54 codeine AdvReac Unknown Verified 07/26/22 13:54 mirabegron [From Myrbetriq] AdvReac Other Verified 07/26/22 13:54 tizanidine AdvReac Other Verified 07/26/22 13:54 vaccine adjuvant system, AdvReac Rash Verified 07/26/22 13:54 AS01B liposomal [From Shingrix (PF)] varicella-zoster virus AdvReac Rash Verified 07/26/22 13:54 glycoprotein E, recombinant [From Shingrix (PF)] Family History Mother Cancer Celiac disease Presence of permanent cardiac pacemaker Father Cancer Sister Hypertension Other Colon cancer Myocardial infarction Surgical History H/O hernia repair History of cholecystectomy History of esophagogastroduodenoscopy (EGD) History of laparotomy History of Robbie fundoplication History of tonsillectomy Hx of cardiac cath Hx of colonoscopy Hx of dilation and curettage hx of filter removal Hx of local excision of skin lesion Hx of superior vena cava filter placement Hx of tubal ligation S/P gastroplasty Social History Smoking Status: Never smoker alcohol intake: never substance use type: does not use caffeine: Yes Type: coffee Number of servings: 2 what type of physical activity do you participate in: walking frequency: 3-4 times per week ROS ROS ED ROS Narrative Constipation. Review of Systems ROS Unobtainable: Denies due to encephalopathy Constitutional Constitutional ED: Denies chills or fever(s) ENT ENT ED: Denies ear pain Cardiovascular Cardiovascular: Denies chest pain or palpitations Respiratory/Chest Respiratory/Chest: Denies cough Gastrointestinal Gastrointestinal: Reports abdominal pain, constipation and nausea; Denies diarrhea, melena or vomiting Genitourinary Genitourinary ED: Denies dysuria or hematuria Musculoskeletal Musculoskeletal: Denies arthralgias Integumentary Denies abscess Neurologic Neurologic: Denies headache(s) Psychiatric Psychiatric: Denies anxiety Endocrine Endocrinology: Denies polydipsia Hematologic/Lymphatic Hematologic/Lymphatic: Denies easy bleeding Allergic/Immunologic Allergic/Immunologic ED: Denies mouth swelling EXAM Physical Exam Narrative Exam Narrative: 72-year-old female no acute distress. Vital signs stable afebrile. HEENT exam unremarkable. Neck nontender. Lungs clear to auscultation bilaterally. Heart regular rhythm no murmur. Abdomen soft nondistended normal bowel sounds without peritoneal signs. No localizing tenderness. No hernia or mass. No signs of obstruction. Both right upper right lower quadrant unremarkable. No pulsatile mass. Moving all 4 extremities. Nontender no edema. Back nontender. Neurologically she is awake and alert with no focal motor deficits Const Vital Signs: 08/05/22 11:31 08/05/22 15:05 Temperature 97.9 F Temperature Source Temporal Pulse Rate 84 69 Respiratory Rate 16 16 Blood Pressure 161/84 H 135/79 H Blood Pressure Mean 109 97 Pulse Ox 97 98 Oxygen Delivery Method Room Air Room Air Positive well nourished, well developed and obese; Negative for cachectic, contractures or unkempt General Appearance ED: well developed and NAD; Negative for unkempt, cachectic, contractures or pallor Nutritional Appearance: obese; Negative for cachectic HEENT Reports moist mucous membranes normocephalic and atraumatic; Negative for trauma or tenderness Eyes PERRL and EOMs intact bilaterally General Eye ED: Negative for pale conjunctiva, scleral icterus or other Neck no lymphadenopathy, supple and no JVD General: Negative for tenderness Carotids: Negative for other Lymph Lymphatic: Negative for other Resp normal respiratory effort and clear to auscultation bilaterally Effort and Inspection: Negative for respiratory distress Auscultation: Negative for rales, rhonchi or wheezes Cardio regular rate, regular rhythm, S1 normal heart sound, S2 normal heart sound and no murmurs Rate: Negative for bradycardia or tachycardic Rhythm: Negative for abnormal rhythm GI non-tender, non-distended and no masses Inspection: Negative for abdominal distention Auscultation: normoactive bowel sounds Palpation: soft; Negative for tender, guarding, rigid, hepatomegaly, splenomegaly, hernia, mass, pulsatile mass or rebound tenderness present Back/Spine no CVA tenderness General Back: Negative for CVA tenderness Cervical Spine: Negative for cervical spine tenderness Thoracic Spine / Upper Back: Negative for thoracic spinal tenderness Lumbar Spine / Lower Back: Negative for lumbar spinal tenderness Extremity full ROM General Extremety ED: Negative for edema or tenderness General Extremity: Negative for edema Neuro CN's II-XII intact bilaterally and moves all extremities Sensorium / Orientation: alert, oriented to person, oriented to place and oriented to time; Negative for orientation impaired, confused, lethargic or stuporous Motor Exam: strength 5/5 throughout Psych mental status grossly normal and thought process normal Appearance: Negative for unkempt or other Attitude: No agitated Mood & Affect: Negative for depressed, anxious or tearful Skin no wounds General Skin Exam: Negative for jaundice or pallor Lesions: no lesions Rashes: no rashes Trauma: Negative for abrasion Nails: Negative for discolored MDM MDM MDM Narrative Medical decision making narrative: 72-year-old IBS complaining constipation. Exam is benign. CBC and CMP are unremarkable. Awaiting a plain film to see if there is significant constipation is treated. She will be given IV Zofran for nausea. Repeat exam at 4:03 PM patient doing well. IV fluids are still running and not even half in yet. She and I went over her labs which were unremarkable. Her KUB showed constipation. She will be written for MiraLAX. Follow-up with her primary care physician. Return if feeling worse. Her repeat abdominal exam is benign. History & Record Review Discussion w/independent historian: Patient Additional record(s) reviewed:: Prior inpatient record, Prior outpatient record, Prior ED visit, Prior labs and No prior records Lab Data Attestation: I reviewed the patient's lab results. Lab results narrative: CBC normal. White count 9.8. H&H 14.8 and 44. Platelets 326. Lipase is normal at 27. CMP unremarkable. Gap is 6. Normal BUN and creatinine. Liver enzymes unremarkable. KUB shows increased stool consistent with constipation throughout the colon and rectum. Labs: Laboratory Results - last 24 hr 08/05/22 08/05/22 08/05/22 11:40 11:40 11:40 WBC 9.8 RBC 4.73 Hgb 14.8 Hct 44.1 MCV 93.2 MCH 31.3 MCHC 33.6 RDW Std Deviation 44.8 H RDW Coeff of Ronnie 13.1 Plt Count 326 MPV 9.4 Immature Gran % (Auto) 0.300 Neut % (Auto) 60.4 Lymph % (Auto) 25.3 [place] % (Auto) 7.4 Eos % (Auto) 5.4 H Baso % (Auto) 1.2 H Absolute Neuts (auto) 5.9 Absolute Lymphs (auto) 2.49 Nucleated RBC % 0 Sodium 140 Potassium 4.1 Chloride 107 Carbon Dioxide 27.0 Anion Gap 6 BUN 15 Creatinine 0.89 Estim Creat Clear Calc 49.34 Est GFR (MDRD) Af Amer 80 Est GFR (MDRD) Non-Af 66 BUN/Creatinine Ratio 16.9 Glucose 110 H Calcium 9.5 Total Bilirubin 0.70 AST 23 ALT 37 Alkaline Phosphatase 93 Total Protein 7.7 Albumin 3.5 Globulin 4.2 Albumin/Globulin Ratio 0.8 L Lipase 27 Radiography Diagnostic Testing: Clinical Impression(s) from Imaging Studies KUB X-Ray 08/05/22 14:25 IMPRESSION: Constipation. Electronically Signed: Olivier Escamilla MD at 14:52 EDT , KUB, single view, interpreted both by myself and the radiologist shows constipation throughout that colon and rectum. No bowel obstruction. Discharge Plan Triage Chief Complaint: Abd Pain ED Provider: Paul Lara Dx/Rx/DC Orders Clinical Impression: Acute constipation, History of IBS, History of TIAs Instructions: ED Constipation (Adult) Prescriptions: New polyethylene glycol 3350 [Miralax] 17 gram/dose powder 17 g PO DAILY Qty: 119 0RF Rx Instructions: Use once daily until you have a large bowel movement. No Action multivitamin Tablet 1 tab PO DAILY Systane Nighttime 94-3 % ointment 1 applic OPHTHALMIC QHS diazepam 5 mg tablet 5 mg PO QHS PRN (Reason: anxiety) (DME) BreatheRite MDI Spacer Spacer See Rx Instructions .ROUTE .MEDSUPPLY Qty: 1 0RF Rx Instructions: As directed cholecalciferol (vitamin D3) 125 mcg (5,000 unit) capsule 125 mcg PO DAILY albuterol sulfate [Ventolin HFA] 90 mcg/actuation HFA aerosol inhaler 2 puff INHALATION Q4H PRN (Reason: shortness of breath or wheezing) Qty: 18 6RF amlodipine 5 mg tablet 5 mg PO DAILY esomeprazole magnesium 20 mg capsule,delayed release(DR/EC) 20 mg PO DAILY fluticasone furoate-vilanterol [Breo Ellipta] 100-25 mcg/dose blister with device 1 inh inhalation DAILY levothyroxine 88 mcg tablet 88 mcg PO DAILY lubiprostone 8 mcg capsule 8 mcg PO DAILY spironolactone 25 mg tablet 25 mg PO DAILY Qty: 90 3RF gabapentin 100 MG capsule 300 mg PO QHS aspirin 81 MG tablet 81 mg PO DAILY@0800 acetaminophen 500 mg Capsule 500 mg PO Q6H PRN (Reason: Pain) albuterol sulfate 2.5 mg/0.5 mL solution for nebulization 2.5 mg inhalation Q4H PRN (Reason: shortness of breath or wheezing) Qty: 180 6RF Primary Care Provider: Miryam Riojas: Miryam Riojas MD [Primary Care Provider] - 3-5 Days if not improving Activity Restrictions/Additional Instructions: MiraLAX daily for his constipation to you have a large bowel movement. Plenty of fluids, fruits, vegetables and fiber. Follow-up with your doctor as needed. Disposition Disposition: Home, Self Care
[2022-08-05 14:35] LABS: Lipase 27 U/L (13-75)
[2022-08-05] MEDS: 0.9% Normal Saline 1,000 ML 999 ML IV (14:55)
[2022-08-05] MEDS: Ondansetron 4 MG/2 ML Vial IV (14:55)
[2022-08-05 15:05] VITALS: BP 135/79; PULSE 69; RESP 16; O2SAT 98
[2022-08-05 16:22] VITALS: BP 130/75; PULSE 85; RESP 16; O2SAT 93
== END 2022-08-05 16:32 | disposition home or self-care (01) ==
PROVIDERS: Emergency Provider Emergency Medicine; PCP Internal Medicine; Visit Provider Emergency Medicine
DX: K59.00 Constipation, unspecified (principal); R11.0 Nausea; I25.10 Atherosclerotic heart disease of native coronary artery without angina pectoris; I10 Essential (primary) hypertension; Z90.49 Acquired absence of other specified parts of digestive tract; E66.9 Obesity, unspecified; Z87.19 Personal history of other diseases of the digestive system; Z86.73 Personal history of transient ischemic attack (TIA), and cerebral infarction without residual deficits
CPT/HCPCS: 74018; 80053; 83690; 85025; 96361; 96374; 99284; J7030; J2405

== ENCOUNTER → 2022-10-02 | Outpatient (CLI) | payer MEDICARE, BC, SELFPAY ==
[2022-10-02 13:09] LABS: Erythrocyte Sedimentation Rate 17 mm/hr (0-30)
[2022-10-02 13:14] LABS: Absolute Neutrophil Count 6.8 X10^3/uL (2.0-7.7); Basophil# 0.09 X10^3/uL; Basophil% 0.8 % (0-1); Eosinophil# 0.65 X10^3/uL; Eosinophils% 5.9 % (0-5); Hematocrit 46.1 % (37-47); Hemoglobin 14.7 g/dL (12.0-15.0); Lymphocyte % 22.8 % (19-41); Mean Corp Hgb Conc 31.9 g/dL (32-36); Mean Corpuscular Hgb 30.4 pg (27.0-32.0); Mean Corpuscular Volume 95.4 fL (81-99); Monocyte# 0.84 X10^3/uL; Monocyte% 7.7 % (0-10); NRBC Flagged by Analyzer 0 % (0-5); Neutrophil # 6.84 X10^3/uL (2.7-7.7); Neutrophil % 62.4 % (47-70); Platelet Count 334 K/mm3 (150-450); RBC Distribution Width CV 13.4 % (11.6-14.6); RBC Distribution Width SD 47.1 fl (35.1-43.9); Red Blood Count 4.83 M/mm3 (4.2-5.4)
[2022-10-02 13:33] LABS: ALB/GLOB Ratio 0.8 RATIO (0.9-2.4); AST(SGOT) 21 U/L (15-37); Alanine Aminotransfer ALT/SGPT 32 U/L (13-56); Albumin, Serum 3.5 g/dL (3.2-5.0); Alkaline Phosphatase 76 U/L (45-117); Anion Gap 6 (5-15); BUN 17 mg/dL (7-18); BUN/Creat Ratio 18.1 RATIO (10-20); CRP 5.65 mg/L (0.0-3.0); Calcium,Total 9.2 mg/dL (8.5-10.1); Chloride 105 mmol/L (98-107); Creatinine, Serum 0.94 mg/dL (0.55-1.02); EST Glomerular Filtration Rate 62 mL/min (>60); Est Glom Filt Rate - Afr Amer 75 mL/min (>60); Globulin 4.3 g/dL (2.2-4.2); Glucose 136 mg/dL (74-106); LDH 202 U/L (84-246); Potassium 3.9 mmol/L (3.5-5.1); Protein, Total 7.8 g/dL (6.4-8.2); Sodium Level 138 mmol/L (136-145)
[2022-10-03 14:10] LABS: Anti-Centromere B Ab <0.2 AI (0.0-0.9); Anti-Chromatin <0.2 AI (0.0-0.9); Anti-Jo <0.2 AI (0.0-0.9); Anti-Scleroderma-70 AB <0.2 AI (0.0-0.9); Anti-dsDNA Ab 1 IU/mL (0-9); RNP Ab <0.2 AI (0.0-0.9); SJOGREN'S Anti-SS-A test < 0.2 AI (0.0-0.9); SJOGREN'S Anti-SS-B test < 0.2 AI (0.0-0.9); Smith Ab <0.2 AI (0.0-0.9)
[2022-10-05 14:17] LABS: Albumin 3.6 g/dL (2.9-4.4); Alpha-1-Globulins 0.2 g/dL (0.0-0.4); Alpha-2-Globulins 0.7 g/dL (0.4-1.0); Cytoplasmic Ab (C-ANCA) <1:20 titer (Neg:<1:20); Endomysial Antibody IgA Negative (Negative); Gamma Globulin 1.3 g/dL (0.4-1.8); Immunoglobulin A 473 mg/dL (64-422); Immunoglobulin E 171 IU/mL (6-495); Immunoglobulin G 1301 mg/dL (586-1602); Immunoglobulin M 75 mg/dL (26-217); PROEL- TOTAL PROTEIN 7.1 g/dL (6.0-8.5); Perinuclear Ab (P-ANCA) <1:20 titer (Neg:<1:20); t-Transglutaminase IgA <2 U/mL (0-3)
== END | disposition home or self-care (01) ==
PROVIDERS: PCP Internal Medicine; Referring Provider Internal Medicine Gastroenterology; Visit Provider Internal Medicine Gastroenterology
DX: K22.70 Barrett's esophagus without dysplasia (principal); R10.9 Unspecified abdominal pain; Z86.79 Personal history of other diseases of the circulatory system; K58.9 Irritable bowel syndrome, unspecified
CPT/HCPCS: 36415; 80053; 82784; 82785; 83516; 83615; 84165; 85025; 85652; 86140; 86225; 86235; 86255; 86256; 86334

== ENCOUNTER → 2022-10-15 | Outpatient (CLI) | payer MEDICARE, BC, SELFPAY ==
[2022-10-18 12:09] LABS: Coproporphyrin I, Urine 7 ug/L (Undefined); Coproporphyrin I,24 Hour 21 ug/24 hr (0-24); Coproporphyrin III, Urine 27 ug/L (Undefined); Coproporphyrin III,24 Hour 81 ug/24 hr (0-74); Heptacarboxylporph.,24 Hour <3 ug/24 hr (0-4); Heptacarboxylporph.,Urine <1 ug/L (Undefined); Hexacarboxylporph.,24 Hour <3 ug/24 hr (0-1); Hexacarboxylporph.,Urine <1 ug/L (Undefined); Pentacarboxylporph,24 Hour <3 ug/24 hr (0-4); Pentacarboxylporphyrin,Urine <1 ug/L (Undefined); Uroporphyrin, 24 Hour 9 ug/24 hr (0-24); Uroporphyrin,Urine 3 ug/L (Undefined)
== END | disposition home or self-care (01) ==
LOC: LAB 10:26 → LABSPEC 10:27
PROVIDERS: PCP Internal Medicine; Referring Provider Internal Medicine Gastroenterology; Visit Provider Internal Medicine Gastroenterology
DX: K22.70 Barrett's esophagus without dysplasia (principal); R10.9 Unspecified abdominal pain
CPT/HCPCS: 81050; 84120

== ENCOUNTER → 2022-10-17 | Outpatient (CLI) | payer MEDICARE, BC, SELFPAY ==
[2022-10-19 19:07] LABS: Calprotectin, Stool 77 ug/g (0-120)
[2022-10-22 22:06] LABS: Pancreatic Elastase, Fecal 334 (>200)
== END | disposition home or self-care (01) ==
PROVIDERS: PCP Internal Medicine; Referring Provider Internal Medicine Gastroenterology; Visit Provider Internal Medicine Gastroenterology
DX: K58.9 Irritable bowel syndrome, unspecified (principal); K22.70 Barrett's esophagus without dysplasia; R10.9 Unspecified abdominal pain
CPT/HCPCS: 82653; 83630; 83993; 87177; 87209; 87329

== ENCOUNTER 2023-04-23 07:14 | Day surgery (SDC) | payer MEDICARE, BC, SELFPAY ==
--- NOTE | 2023-04-23 | ESO_PTH ---
PATHOLOGY RESULTS PATIENT: EILEEN CHRISTINE LOC: EN U#:[id number] AGE/SX: 73/F ROOM: RE04/23/[address]: Dr. Raul Casper DO : 1950 BED: DIS: 04/23/2023 SPEC #: [id number] RECD: 04/23/23 12:51 STATUS: KEKE REJason #: [id number] IAN: 04/23/23 00:[address]: Raul Casper DEPT: SURGICAL PATHOLOGY RECD BY: Quoc Mcpherson ENTERED: 04/23/23 12:51 SP TYPE: ELICEO CRISTINA DR: Dr. Miryam Riojas MD Tissues: Esophagus, NOS Cecum, NOS Procedures: Special Stain Group II Surgery Specimen Level IV Alcian Blue/PAS (control) HEADER OPERATION: Colonoscopy with biopsies, EGD with biopsies PRE-OP DIAGNOSIS: Sarmiento's esophagus, abdominal pain TISSUE SUBMITTED: A - Distal esophagus biopsy, B - Cecal polyp biopsy MICROSCOPIC DIAGNOSIS A. Distal esophagus, biopsy: Gastroesophageal junctional mucosa with chronic inflammation. 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 No evidence of dysplasia. See comment. B. Cecal polyp, biopsy: Tubular adenoma. AM:xenia 04/24/2023 COMMENT A. Alcian blue/PAS stain with matched control supports the above diagnosis. Immunohistochemistry ([id number]) for P53 and Ki-67 will be performed and results will be reported separately. MICROSCOPIC DESCRIPTION Slides are reviewed. GROSS DESCRIPTION A - Received in fixative is one container labeled with the patient's name and designated distal esophagus biopsy. The specimen consists of multiple irregular fragments of light chou soft tissue that in aggregate measure 1.0 x 0.3 x 0.1 cm. The specimen is totally submitted in one cassette. B - Received in fixative is one container labeled with the patient's name and designated cecal polyp biopsy. The specimen consists of one irregular fragment of light chou soft tissue that measures 0.4 x 0.4 x 0.1 cm. The specimen is totally submitted in one cassette. / SJ:xenia 04/23/2023 TC:3 CPT: 61723 x2, 53564
--- NOTE | 2023-04-23 | IMM_PTH ---
PATHOLOGY RESULTS PATIENT: EILEEN CHRISTINE LOC: EN U#:[id number] AGE/SX: 73/F ROOM: RE04/23/[address]: Dr. Raul Casper DO : 1950 BED: DIS: 04/23/2023 SPEC #: [id number] RECD: 04/24/23 14:02 STATUS: KEKE REQ #: [id number] IAN: 04/23/23 00:[address]: Raul Casper DEPT: IMMUNOHISTOCHEMISTRY RECD BY: Jenny Browning ENTERED: 04/24/23 14:03 SP TYPE: IMMUNO OTHR DR: Dr. Miryam Riojas MD Tissues: Esophageal mucous membrane Procedures: P53 (initial) KI-67 (add) PHYSICIAN & INSTITUTION [place] [id number] SPECIMEN INFORMATION: Tissue Source: A - Distal esophagus Clinical Info: Sarmiento's esophagus, abdominal pain Specimen Number: [id number] CPT code: 01873, 63779 METHODOLOGY: Deparaffinized sections of prefer/formalin-fixed tissue or PAP/DQ stained slides are incubated with monoclonal/polyclonal antibodies/oligonucleotide probes. Localization is made via biotin free immunoperoxidase method. Appropriate controls are performed and reacted as expected. Results on target cell population are indicated in the following table: RESULTS: ANTIBODY / CLONE RESULT Block A P53 (DO-7) positive, wile type pattern Ki-67 (30-9) positive, low These tests were developed and their performance characteristics determined by [facility]. They may not have been cleared or approved by the U.S. Food and Drug Administration. The FDA has determined that such clearance or approval is not necessary. The above immunohistochemical/dualISH markers are ordered and reviewed by the Pathologist. INTERPRETATION: A. Distal esophagus, biopsy: No evidence of dysplasia. AM:xenia 04/25/2023
--- OUTSIDE RECORDS SUMMARY | 2023-04-23 07:18 | XMS RPT_ITS | CCD ---
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, Md Primary Care Provider Sunni vailable Zeenat Sweeney CGC Unavailable Unavailable Quoc Diaz MD Unavailable Paulo Riojas MD Primary Care Provider Paulo Riojas MD Primary Care Provider Paulo Riojas MD Primary Care Provider RODRIGUEZ, JOYA Attending Unavailable TALAMPAS, PAULO D Primary Care Unavailable TALAMPAS, PAULO D Attending Unavailable TALAMPAS, PAULO D Primary Care Unavailable TALAMPAS, PAULO D Primary Care Unavailable RODRIGUEZ, JOYA Attending Unavailable TALAMPAS, PAULO D Primary Care Unavailable RODRIGUEZ, JOYA Referring Unavailable RODRIGUEZ, JOYA Attending Unavailable TALAMPAS, PAULO D Primary Care Unavailable TALAMPAS, PAULO D Primary Care Unavailable RODRIGUEZ, JOYA Referring Unavailable TALAMPAS, PAULO D Primary Care Unavailable TALAMPAS, PAULO D Primary Care Unavailable TALAMPAS, PAULO D Referring Unavailable TALAMPAS, PAULO D Primary Care Unavailable RODRIGUEZ, JOYA Referring Unavailable TALAMPAS, PAULO D Primary Care Unavailable RODRIGUEZ, JOYA Attending Unavailable TALAMPAS, PAULO D Referring Unavailable TALAMPAS, PAULO D Primary Care Unavailable RODRIGUEZ, JOYA Referring Unavailable TALAMPAS, PAULO D Primary Care Unavailable Allergies Allergy Classification Reported Allergen(s) Allergy Type Date of Onset Reaction(s) Facility (20 sources) Aspirin / Dipyridamole; Translations: [ASPIRIN-DIPYRIDAMOLE ] Drug Allergy 05-27-19 12 Other: See Comments [facility] (20 sources) Benzocaine / butamben / Tetracaine; Translations: [BUTAMBEN-TETRACAINE- BENZOCAINE] Drug Allergy 09-12-19 13 Other: See Comments [facility] Work Phone: (20 sources) Codeine; Translations: [CODEINE] Drug Allergy 03-07-20 06 Intolerance [facility] (20 sources) Cortisone; Translations: [CORTISONE] Drug Allergy Shortness of Breath [facility] Work Phone: [phone] (20 sources) lansoprazole; Translations: [LANSOPRAZOLE] Drug Allergy 03-07-20 06 GI Upset [facility] (20 sources) Latex; Translations: [LATEX] Propensity to adverse reactions 11-04-19 10 Rash [facility] Work Phone: (20 sources) Meclizine; Translations: [MECLIZINE] Drug Allergy 03-07-20 06 Swelling [facility] (20 sources) methylPREDNISolone Drug Allergy 03-07-20 06 Swelling [facility] (20 sources) Metoprolol; Translations: [METOPROLOL] Drug Allergy 04-24-19 07 GI Upset [facility] Work Phone: (20 sources) mirabegron; Translations: [MIRABEGRON] Drug Allergy 12-27-19 15 Other: See Comments [facility] Work Phone: (20 sources) Omeprazole; Translations: [OMEPRAZOLE MAGNESIUM] Drug Allergy Diarrhea [facility] Work Phone: (20 sources) oxybutynin; Translations: [OXYBUTYNIN CHLORIDE] Drug Allergy 03-07-20 Intolerance [facility] (20 sources) Povidone-Iodine; Translations: [POVIDONE-IODINE] Drug Allergy 11-05-19 07 Rash [facility] Work Phone: (20 sources) Sulfamethoxazole / Trimethoprim; Translations: [SULFAMETHOXAZOLE-TRI METHOPRIM] Drug Allergy 03-20-19 07 [facility] Work Phone: [phone] (20 sources) tegaserod; Translations: [TEGASEROD HYDROGEN MALEATE] Drug Allergy 03-07-20 06 [facility] (20 sources) tiZANidine; Translations: [TIZANIDINE] Drug Allergy 03-24-19 15 Other: See Comments [facility] (20 sources) tolterodine; Translations: [TOLTERODINE TARTRATE] Drug Allergy 03-07-20 06 Intolerance [facility] (20 sources) cigarettes [Other] Propensity to adverse reactions 02-23-20 Shortness of Breath [facility] (20 sources) ekg patches [Other] Propensity to adverse reactions [facility] paper tape [Other] Propensity to adverse reactions 08-16-[address] [facility] Work Phone: [phone] (20 sources) Lisinopril; Translations: [LISINOPRIL] Drug Allergy 04-26-19 23 Intolerance [facility] Work Phone: [phone] (4 sources) Adhesive agent; Translations: [ADHESIVE] Drug Intolerance 02-13-[address] [facility] Work Phone: [phone] (4 sources) Adhesive Tape; Translations: [ADHESIVE TAPE (ROSINS)] Allergy to substance 02-13-[address] [facility] Work Phone: [phone] (4 sources) methylPREDNISolone; Translations: [METHYLPREDNISOLONE] Drug Allergy 02-13-20 Other: See Comments [facility] Work Phone: (4 sources) Cigarette Smoke; Translations: [CIGARETTE SMOKE] Drug Intolerance 02-13-20 Shortness of Breath [facility] Work Phone: [phone] (1 source) OTHER; Translations: [OTHER] Propensity to adverse reactions (disorder) 02-23-20 10 [facility] Repository Medications Current Medications Medication Drug Class(es) Dates Sig (Normalized) Sig (Original) gabapentin 100 mg oral capsule (20 sources) Anti-epileptic Agent Start: 04-06-2023 End: 02-21-2023 gabapentin (NEURONTIN) 100 mg capsule Indications: Chronic bilateral low back pain with bilateral sciatica Take 3 capsules by mouth daily at bedtime for 180 days. Do not start before April 06, 2023. 270 capsule 1 04/06/2023 02/21/2023 Discontinued Completed/Discontinued Medications Medication Drug Class(es) Dates Sig (Normalized) Sig (Original) acetaminophen 325 mg oral tablet (20 sources) take 2 tablets by mouth every six hours as needed acetaminophen (TYLENOL) 325 mg tablet Take 650 mg by mouth every 6 hours as needed. 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] Onset: 09-06-2022 09-06-2022 Chronic Coronary atherosclerosis and other heart disease (20 sources) Coronary atherosclerosis; Translations: [Atherosclerotic heart disease of [place] coronary artery without angina pectoris] 02-27-2015 Chronic Deficiency and other anemia (20 sources) Anemia; Translations: [Anemia, unspecified] Onset: 10-18-2010 10-18-2010 Episodic Disorders of lipid metabolism (20 sources) Mixed hyperlipidemia; Translations: [Mixed hyperlipidemia] Onset: 03-30-2015 03-30-2015 Chronic Esophageal disorders (20 sources) Sarmiento's esophagus; Translations: [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] 03-12-2021 Chronic Essential hypertension (20 sources) Essential hypertension; Translations: [Essential (primary) hypertension] Onset: 02-27-2015 02-27-2015 Chronic Genitourinary symptoms and ill-defined conditions (20 sources) Genuine stress incontinence; Translations: [Stress incontinence (female) (male)] Onset: 09-02-2013 09-02-2013 Chronic Immunizations and screening for infectious disease (1 source) Encounter for immunization; Translations: [Encounter for immunization] Onset: 02-21-2023 Episodic Lymphadenitis (1 source) Submandibular lymphadenopathy; Translations: [Localized enlarged lymph nodes] Episodic Nutritional deficiencies (2 sources) Vitamin D deficiency; Translations: [Vitamin D deficiency, unspecified] Onset: 08-23-2022 Chronic Other aftercare (1 source) Encounter for therapeutic drug level monitoring; Translations: [Medication monitoring encounter] Onset: 02-19-2023 Episodic Other and unspecified benign neoplasm (1 source) History of polyp of colon; Translations: [Personal history of colonic polyps] Episodic Other connective tissue disease (1 source) Pain in bilateral legs; Translations: [Pain in right leg] Episodic Other diseases of bladder and urethra (20 sources) Overactive bladder; Translations: [Overactive bladder] Onset: 06-16-2013 06-16-2013 Chronic Other gastrointestinal disorders (20 sources) Irritable bowel syndrome; Translations: [Irritable bowel syndrome without diarrhea] 02-20-2006 Chronic Other inflammatory condition of skin (1 source) Intertrigo; Translations: [Erythema intertrigo] Episodic Other nervous system disorders (1 source) Other chronic pain; Translations: [Chronic bilateral low back pain with bilateral sciatica] Onset: 08-23-2022 Chronic Other nervous system disorders (1 source) Impairment of balance; Translations: [Other abnormalities of gait and mobility] Episodic Other nutritional; endocrine; and metabolic disorders (20 sources) Metabolic syndrome X; Translations: [Metabolic syndrome] 02-20-2006 Chronic Other nutritional; endocrine; and metabolic disorders (20 sources) Obesity; Translations: [Obesity, unspecified] 06-26-2011 Chronic Other skin disorders (1 source) Eruption; Translations: [Rash and other nonspecific skin eruption] Episodic Other upper respiratory disease (1 source) Pain in throat; Translations: [Pain in throat] Episodic Residual codes; unclassified (1 source) Family history of cancer of colon; Translations: [Family history of malignant neoplasm of digestive organs] Episodic Residual codes; unclassified (1 source) Family history of gene mutation; Translations: [Family history of carrier of genetic disease] Episodic Thyroid disorders (20 sources) Hypothyroidism; Translations: [Hypothyroidism, unspecified] Onset: 03-12-2021 03-12-2021 Chronic Viral infection (1 source) Herpes labialis; Translations: [Herpesviral vesicular dermatitis] Episodic Past or Other Problems Problem Classification Problem Date Documented Da te Episodic/Chronic Acquired foot deformities (20 sources) Talipes cavus; Translations: [Congenital pes cavus, left foot] Onset: 08-24-2020 08-24-2020 Episodic Administrative/social admission (20 sources) Marital conflict; Translations: [Problems in relationship with spouse or partner] Onset: 10-22-2013 10-22-2013 Episodic Calculus of urinary tract (20 sources) Kidney stone; Translations: [Calculus of kidney] Onset: 09-02-2013 09-02-2013 Episodic Conditions associated with dizziness or vertigo (20 sources) Vertigo; Translations: [Dizziness and giddiness] Onset: 05-07-2017 05-07-2017 Episodic Deficiency and other anemia (1 source) Anemia, unspecified; Translations: [Anemia, unspecified type] Onset: 10-18-2010 Episodic Diabetes mellitus without complication (20 sources) Impaired fasting glycemia; Translations: [Impaired fasting glucose] Onset: 03-30-2015 03-30-2015 Episodic E Codes: Fall (20 sources) Fall; Translations: [Unspecified fall, subsequent encounter] Onset: 06-02-2017 06-02-2017 Episodic Genitourinary symptoms and ill-defined conditions (20 sources) Increased frequency of urination; Translations: [Frequency of micturition] Onset: 09-02-2013 09-02-2013 Episodic Headache; including migraine (20 sources) Headache; Translations: [Cephalalgia] Onset: 11-28-2014 11-28-2014 Episodic Other and unspecified benign neoplasm (20 sources) Lipoma of right upper limb; Translations: [Benign lipomatous neoplasm of skin and subcutaneous tissue of right arm] Onset: 10-24-2015 10-24-2015 Episodic Other connective tissue disease (20 sources) Bilateral dysfunction of posterior tibial tendon of feet; Translations: [Posterior tibial tendinitis, right leg] Onset: 08-24-2020 08-24-2020 Episodic Other gastrointestinal disorders (20 sources) Dysphagia; Translations: [Dysphagia, unspecified] Onset: 02-05-2012 11-10-2018 Episodic Other gastrointestinal disorders (20 sources) Reversed peristalsis; Translations: [Visible peristalsis] Onset: 06-23-2013 03-12-2021 Episodic Other lower respiratory disease (20 sources) Cough; Translations: [Cough] Onset: 07-11-2019 07-11-2019 Episodic Other non-traumatic joint disorders (19 sources) Shoulder pain; Translations: [Pain in left shoulder] Onset: 06-04-2017 06-04-2017 Episodic Other non-traumatic joint disorders (11 sources) Pain in left shoulder; Translations: [Pain in joint, shoulder region] Onset: 06-04-2017 06-04-2017 Episodic Other screening for suspected conditions (not mental disorders or infectious disease) (6 sources) Patient encounter status; Translations: [Encounter for screening mammogram for malignant neoplasm of breast] Onset: 08-23-2022 Episodic Residual codes; unclassified (20 sources) Bilateral lower limb edema; Translations: [Localized edema] Onset: 07-11-2019 07-11-2019 Episodic Spondylosis; intervertebral disc disorders; other back problems (20 sources) Chronic neck pain; Translations: [Cervicalgia] Onset: 09-16-2017 09-16-2017 Episodic Results Test Name Value Interpretation Reference Range Facil ity Vital Signs Date Time Vital Sign Value Performing Clinician Faci lity 02-21-2023 14:03-0500 Body height 162.6 cm Joya Rodriguez ACID CUTTER.BEAUTY OPERATOR APPRENTICE Work Phone: [facility] 02-21-2023 14:03-0500 Body weight 87.09 kg Joya Rodriguez ACID CUTTER.BEAUTY OPERATOR APPRENTICE Work Phone: [facility] 02-21-2023 14:03-0500 Diastolic blood pressure 74 mm[Hg] Joya Rodriguez ACID CUTTER.BEAUTY OPERATOR APPRENTICE Work Phone: [facility] 02-21-2023 14:03-0500 Heart rate 81 /min Joya Rodriguez ACID CUTTER.BEAUTY OPERATOR APPRENTICE Work Phone: [facility] 02-21-2023 14:03-0500 SaO2% (BldA) [Mass fraction] 97 % Joya Rodriguez ACID CUTTER.BEAUTY OPERATOR APPRENTICE Work Phone: [facility] 02-21-2023 14:03-0500 Systolic blood pressure 128 mm[Hg] Joya Rodriguez ACID CUTTER.BEAUTY OPERATOR APPRENTICE Work Phone: [facility] 09-19-2022 15:43-0400 Body temperature 97.3 [degF] Ryan hCicas MD Work Phone: [facility] 09-19-2022 15:43-0400 Body weight 88.45 kg Ryan Chicas MD Work Phone: [facility] 09-19-2022 15:43-0400 Diastolic blood pressure 82 mm[Hg] Ryan Chicas MD Work Phone: [facility] 09-19-2022 15:43-0400 Heart rate 85 /min Ryan Chicas MD Work Phone: [facility] 09-19-2022 15:43-0400 Respiratory rate 16 /min Ryan Chicas MD Work Phone: [facility] 09-19-2022 15:43-0400 SaO2% (BldA) [Mass fraction] 97 % Ryan Chicas MD Work Phone: [facility] 09-19-2022 15:43-0400 Systolic blood pressure 128 mm[Hg] Ryan Chicas MD Work Phone: [facility] 05-17-2022 14:48-0500 Body temperature 98.71 [degF] Paulo Riojas MD Work Phone: [facility] 05-17-2022 14:48-0500 Body weight 88 kg Paulo Riojas MD Work Phone: [facility] 05-17-2022 14:48-0500 Diastolic blood pressure 82 mm[Hg] Paulo Riojas MD Work Phone: [facility] 05-17-2022 14:48-0500 Heart rate 83 /min Paulo Riojas MD Work Phone: [facility] 05-17-2022 14:48-0500 Respiratory rate 18 /min Paulo Riojas MD Work Phone: [facility] 05-17-2022 14:48-0500 SaO2% (BldA) [Mass fraction] 97 % Paulo Riojas MD Work Phone: [facility] 05-17-2022 14:48-0500 Systolic blood pressure 136 mm[Hg] Paulo Riojas MD Work Phone: [facility] 04-26-2022 09:36-0500 Body weight 88 kg Joya Rodriguez ACID CUTTER.BEAUTY OPERATOR APPRENTICE Work Phone: [facility] 04-26-2022 09:36-0500 Diastolic blood pressure 82 mm[Hg] Joya Rodriguez ACID CUTTER.BEAUTY OPERATOR APPRENTICE Work Phone: [facility] 04-26-2022 09:36-0500 Heart rate 80 /min Joya Rodriguez ACID CUTTER.BEAUTY OPERATOR APPRENTICE Work Phone: [facility] 04-26-2022 09:36-0500 Respiratory rate 16 /min Joya Rodriguez ACID CUTTER.BEAUTY OPERATOR APPRENTICE Work Phone: [facility] 04-26-2022 09:36-0500 Systolic blood pressure 126 mm[Hg] Joya Rodriguez ACID CUTTER.BEAUTY OPERATOR APPRENTICE Work Phone: [facility] 08-23-2021 16:52-0400 Body weight 87.73 kg Paulo Riojas MD Work Phone: [facility] 08-23-2021 16:52-0400 Diastolic blood pressure 74 mm[Hg] Paulo Riojas MD Work Phone: [facility] 08-23-2021 16:52-0400 Heart rate 75 /min Paulo Riojas MD Work Phone: [facility] 08-23-2021 16:52-0400 Respiratory rate 16 /min Paulo Riojas MD Work Phone: [facility] 08-23-2021 16:52-0400 SaO2% (BldA) [Mass fraction] 99 % Paulo Riojas MD Work Phone: [facility] 08-23-2021 16:52-0400 Systolic blood pressure 126 mm[Hg] Paulo Riojas MD Work Phone: [facility] Encounters Encounter Date Encounter Type Care Provider Facility Start: 02-21-2023 End: 02-22-2023 ambulatory PAULO RIOJAS Facility:[facility] Start: 02-21-2023 End: 02-21-2023 Office outpatient visit 25 minutes Joya Rodriguez APRN.BEAUTY OPERATOR APPRENTICE Work Phone: [facility] [place] Procedures Date Procedure Procedure Detail Performing Clinician Start: 02-19-2023 Lipid 1996 panel - Serum or Plasma Joya Rodriguez APRN.BEAUTY OPERATOR APPRENTICE Work Phone: Start: 09-13-2022 End: 09-13-2022 Mammography Bulk Order Provider Start: 08-28-2022 Lipid 1996 panel - Serum or Plasma Screen [facility] Start: 12-07-2021 INFLUENZA SEASONAL QUADRIVALENT HIGH DOSE AGE 65+ Paulo Riojsa MD Work Phone: Start: 08-23-2021 Adult depression screening assessment Paulo Riojas MD Work Phone: Start: 07-21-2020 Mammography Paulo Riojas MD Work Phone: Start: 07-11-2019 History of cholecystectomy S/P laparoscopic cholecystectomy Paulo Riojas MD Work Phone: Start: 01-15-2015 Colonoscopy Paulo Riojas MD Work Phone: Plan of Treatment Date Care Activity Detail Author Start: 02-20-2028 Lipid 1996 panel - S ana or Plasma Lipid Screening [facility] Start: 08-29-2027 Lipid 1996 panel - S ana or Plasma Lipid Screening [facility] Start: 08-29-2027 LIPID SCREEN LIPID SCREEN [facility] Start: 08-04-2026 LIPID SCREEN LIPID SCREEN [facility] Start: 02-19-2026 Diabetes Screening Diabetes Screenin [facility] Start: 08-28-2025 DIABETES SCREEN DIABETES SCREEN [facility] Start: 08-28-2025 Diabetes Screening Diabetes Screenin g [facility] Start: 02-15-2025 DIABETES SCREEN DIABETES SCREEN [facility] Start: 08-04-2024 DIABETES SCREEN DIABETES SCREEN [facility] Start: 02-22-2024 BP Controlled (<130/80) BP Controlle d (<130/80) [facility] Start: 02-20-2024 Hepatitis B surface antibody level LDL Cholesterol [facility] Start: 09-14-2023 Mammography [facility] Start: 09-07-2023 SHINGRIX VACCINE (2 of 3) SHINGRIX V ACCINE (2 of 3) [facility] Immunizations Immunization Date Immunization Notes Care Provider Fa davon 01-15-2022 influenza virus vaccine, unspecified formulation Screen [facility] 12-07-2021 influenza, high-dose , quadrivalent vaccine (FLUZONE HIGH DOSE QUADRIVALENT) Mi Nurse Work Phone: [facility] Work Phone: 01-19-2021 influenza, high-dose , quadrivalent vaccine (FLUZONE HIGH DOSE QUADRIVALENT) Paulo Riojas MD Work Phone: [facility] 08-04-2020 COVID-19 vaccine, ag e 12+ yr (PFIZER-BIONTECH - PURPLE TOP) Paulo Riojas MD Work Phone: [facility] Work Phone: 12-16-2019 influenza, seasonal, injectable, preservative free Paulo Riojas MD Work Phone: [facility] Work Phone: 12-14-2019 influenza, high-dose , quadrivalent vaccine (FLUZONE HIGH DOSE QUADRIVALENT) Paulo Riojas MD Work Phone: [facility] 11-18-2019 tetanus and diphther ia toxoids, adsorbed, preservative free, for adult use (2 Lf of tetanus toxoid and 2 Lf of diphtheria toxoid) Paulo Riojas MD Work Phone: [facility] 12-22-2018 influenza, high dose seasonal, preservative-free Paulo Riojas MD Work Phone: [facility] 12-05-2017 influenza, high dose seasonal, preservative-free Paulo Riojas MD Work Phone: [facility] Work Phone: 11-29-2016 influenza, high dose seasonal, preservative-free Paulo Riojas MD Work Phone: [facility] 11-29-2016 pneumococcal polysaccharide vaccine, 23 valent Paulo Riojas MD Work Phone: [facility] 12-08-2015 influenza, high dose seasonal, preservative-free Paulo Riojas MD Work Phone: [facility] 09-22-2015 pneumococcal conjuga te vaccine, 13 valent Paulo Riojas MD Work Phone: [facility] 12-15-2014 influenza, injectabl e, quadrivalent, contains preservative Paulo Riojas MD Work Phone: [facility] Work Phone: 12-23-2013 influenza, seasonal, injectable Paulo Riojas MD Work Phone: [facility] Work Phone: 02-09-2013 influenza virus vaccine, unspecified formulation Paulo Riojas MD Work Phone: [facility] 03-06-2012 zoster vaccine, live Paulo cuello MD Work Phone: [facility] Work Phone: 01-29-2012 influenza virus vaccine, unspecified formulation Paulo Riojas MD Work Phone: [facility] Work Phone: 2011 influenza virus vaccine, unspecified formulation Paulo Riojas MD Work Phone: [facility] Work Phone: NEGATED: Highlighted row has not occurred!09-06-2022 tetanus toxoid, reduced diphtheria toxoid, and acellular pertussis vaccine, adsorbed Paulo Riojas MD Work Phone: [facility] Work Phone: Payers Date Payer Category Payer Medicare ANTH MEDICARE ANTH MEDICARE SELECT [id number] 2020-Present [address] [address] [place] [address] [id number] 2016 Medicare [id number] 2016 Unknown ANTHEM ANTHEM OR DICARE SUPPLEMENT [id number] 2016-Present [phone] [address] [place] [address] Indemnity [id number] 2016 Unknown ANTHEM ANTHEM ME DICARE SUPPLEMENT [id number] 2016-Present [phone] [address] [place] [address] Indemnity [id number] 2015 Medicare [id number] 2015 Medicare MEDICARE MEDICAR E A AND B [id number] 2015-Present [phone] [place] [address] Medicare [id number] 2015 Medicare [id number] Social History Date Type Detail Facility Start: 04-14-2020 End: 04-26-2022 Tobacco smoking status NHIS Never smoker [facility] Start: 04-14-2020 End: 04-26-2022 Tobacco use and exposure Never used [facility] Start: 1950 Sex Assigned At Not on file [facility] Start: 11-21-2021 End: 12-01-2021 Exposure to SARS-CoV-2 (event) Not sure [facility] Start: 12-21-2020 End: 09-19-2022 Alcohol intake Current drinker of alcohol (finding) [facility] Start: 12-21-2020 End: 08-23-2022 Alcohol intake [facility] Work Phone: Start: 12-28-2010 History SDOH Alcohol Comment occasionally rare [facility] Start: 08-23-2022 End: 09-19-2022 Tobacco use panel [facility] Work Phone: Adult Depression Screening Assessment 2 [facility] Work Phone: Clinical Notes 06-26-2011 to 02-24-2023 Telephone Encounter - Rea Soni OCCA - 02/24/2023 10:47 AM ESTTelephone Encounter - Adalgisa Jim LPN - 02/18/2023 11:40 AM Joya Knox APRN.SANDRA - 02/21/2023 2:00 PM EST Note Date & Type Note Facility 02-24-2023 Miscellaneous Notes In review of chart patient had lab work drawn on 02/19/23. Patient was then seen in office on 02/21 for appointment. Nothing further at this time. MARICHUY Bergeron Attempted to contact pt but no answer and no voicemail. Orders filed Pt called again about orders as she would like to do in the morning before work. Pt told if she gets her blood drawn Fri or morning, the results should be done by Friday. Pt has an appt on 02/21 with provider for a 6 month f/u. Pt is asking if she needs any labs done before appt. Please review. Call pt with provider message. Jessica Saini LPN documented in this encounter [facility] 02-21-2023 Note HNO ID: [id number] Author: Joya Rodriguez APRN.SANDRA Service: ? Author Type: Nurse Specialist Type: Progress Notes Filed: 02/21/2023 2:49 PM Note Text: SUBJECTIVE: RSV Vaccine(1 - 1-dose 60+ series) Never done DTaP,Tdap,Td Vaccine(1 - Tdap) due on 11/19/2019 Influenza Vaccine(1) due on 11/15/2022 Covid-19 Vaccine(3 - 2022-24 season) due on 11/15/2022 ALEX Rojas is a 72 year old female. 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 She notes she is in her usual state of health. She was seen by Dr. Casper clinical psychologist September and October 2022 for abdominal pain and Sarmiento's esophagus. Has follow up visit this month. She was seen by [facility] Ellen Estrella CMP January 31, 2023 for follow-up . Will complete a Holter for dizziness. She has cataract surgery 2022. Dr Aquino doing surgery. She notes leg pain and swelling at work. Wearing compression socks and taking gabapentin which are helping somewhat. She notes seeing Dr. Park diet tech, switched to alternate nebulizer solution due to cost. Notes her fell yesterday. HTN: Without report of headache, chest pain, palpitations, dyspnea, and peripheral edema. Last 14 Encounter BP Readings: Date: BP: 02/21/2023 128/74 09/19/2022 128/82 09/06/2022 127/82 08/23/2022 142/100 05/17/2022 136/82 04/26/2022 126/82 02/22/2022 118/82 08/23/2021 126/74 01/19/2021 122/72 09/27/2020 139/78 08/25/2020 150/98 07/11/2020 124/78 12/14/2019 116/74 11/18/2019 136/84 Hypothyroidism. She is doing well on her current dose of Synthroid. TSH Date Value 02/19/2023 3.670 mIU/L 08/28/2022 2.290 mIU/L 01/13/2021 2.780 uU/mL 03/16/2020 3.460 uU/mL ) GERD: HOB elevated, hospital bed seems to help. Review of Systems Constitutional: Negative. HENT: Negative. Respiratory: Negative. Cardiovascular: Negative. Musculoskeletal: Positive for arthralgias. Objective BP 128/74 Pulse 81 Ht 162.6 cm (5' 4 ) Wt 87.1 kg (192 lb) SpO2 97% BMI 32.96 kg/m? Physical Exam Vitals and nursing note reviewed. Constitutional: Appearance: Normal appearance. HENT: Head: Normocephalic and atraumatic. Eyes: Conjunctiva/sclera: Conjunctivae normal. Neck: Thyroid: No thyromegaly. Vascular: No JVD. Cardiovascular: Rate and Rhythm: Normal rate and regular rhythm. Heart sounds: Normal heart sounds. Pulmonary: Effort: Pulmonary effort is normal. Breath sounds: Normal breath sounds. Abdominal: General: Bowel sounds are normal. Palpations: Abdomen is soft. Musculoskeletal: Right lower leg: Edema (1+) present. Left lower leg: Edema (1+) present. Lymphadenopathy: Cervical: Left cervical: No superficial cervical adenopathy. Skin: General: Skin is warm and dry. Neurological: General: No focal deficit present. Mental Status: She is alert and oriented to person, place, and time. ALLERGIES Allergen Reactions Adhesive Rash ECG patch made skin red and raw; needs hypoallergenic patches for ECG and other testing needing patches Aggrenox [Aspirin-D* Other: See Comments Headache Bactrim [Sulfametho* dizzy, redness, face flushed Betadine [Povidone-* Rash Cetacaine [Butamben* Other: See Comments excessive mucous production Cigarette Smoke Shortness of Breath Hard to breathe Codeine Intolerance Cortisone Shortness of Breath injection was given and swelled and had trouble breathing Depo-Medrol [Methyl* Other: See Comments FACE SWELLED AFTER CORTISONE SHOT IN KNEE Detrol [Tolterodine* Intolerance HEAD ACHE ,DRY MOUTH Ditropan [Oxybutyni* Intolerance DIZZY,SUN SENSITIVE Latex Rash Lisinopril Intolerance mandibular pain, lymphadenopathy, possible angio edema per [facility] ER note 04/24/2022 Meclizine Swelling URINARY RETENTION,FACE FELT FUNNY Metoprolol GI Upset headache.itching.hives. Myrbetriq [Mirabegr* Other: See Comments elevated BP Prevacid [Lansopraz* GI Upset GAS,BURPING HEADACHE Prilosec [Omeprazol* Diarrhea Tape [Adhesive Tape* Rash Paper tape Tizanidine Other: See (more content not included)... [facility] 02-21-2023 Miscellaneous Notes Addended by: JOYA RODRIGUEZ on: 02/21/2023 02:55 PM Modules accepted: Orders documented in this encounter [facility] 02-21-2023 History of Present illness Narrative SUBJECTIVE: RSV Vaccine(1 - 1-dose 60+ series) Never done DTaP,Tdap,Td Vaccine(1 - Tdap) due on 11/19/2019 Influenza Vaccine(1) due on 11/15/2022 Covid-19 Vaccine(3 - 2022- season) due on 11/15/2022 HPI Eileen Rojas is a 72 year old female. 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 She notes she is in her usual state of health. She was seen by Dr. Casper clinical psychologist September and October 2022 for abdominal pain and Sarmiento's esophagus. Has follow up visit this month. She was seen by [facility] Ellen Estrella CMP January 31, 2023 for follow-up . Will complete a Holter for dizziness. She has cataract surgery 2022. Dr Aquino doing surgery. She notes leg pain and swelling at work. Wearing compression socks and taking gabapentin which are helping somewhat. She notes seeing Dr. Park diet tech, switched to alternate nebulizer solution due to cost. Notes her fell yesterday. HTN: Without report of headache, chest pain, palpitations, dyspnea, and peripheral edema. Last 14 Encounter BP Readings: Date: BP: 02/21/2023 128/74 09/19/2022 128/82 09/06/2022 127/82 08/23/2022 142/100 05/17/2022 136/82 04/26/2022 126/82 02/22/2022 118/82 08/23/2021 126/74 01/19/2021 122/72 09/27/2020 139/78 08/25/2020 150/98 07/11/2020 124/78 12/14/2019 116/74 11/18/2019 136/84 Hypothyroidism. She is doing well on her current dose of Synthroid. TSH Date Value 02/19/2023 3.670 mIU/L 08/28/2022 2.290 mIU/L 01/13/2021 2.780 uU/mL 03/16/2020 3.460 uU/mL ) GERD: HOB elevated, hospital bed seems to help. Review of Systems Constitutional: Negative. HENT: Negative. Respiratory: Negative. Cardiovascular: Negative. Musculoskeletal: Positive for arthralgias. Objective BP 128/74 Pulse 81 Ht 162.6 cm (5' 4 ) Wt 87.1 kg (192 lb) SpO2 97% BMI 32.96 kg/m Physical Exam Vitals and nursing note reviewed. Constitutional: Appearance: Normal appearance. HENT: Head: Normocephalic and atraumatic. Eyes: Conjunctiva/sclera: Conjunctivae normal. Neck: Thyroid: No thyromegaly. Vascular: No JVD. Cardiovascular: Rate and Rhythm: Normal rate and regular rhythm. Heart sounds: Normal heart sounds. Pulmonary: Effort: Pulmonary effort is normal. Breath sounds: Normal breath sounds. Abdominal: General: Bowel sounds are normal. Palpations: Abdomen is soft. Musculoskeletal: Right lower leg: Edema (1+) present. Left lower leg: Edema (1+) present. Lymphadenopathy: Cervical: Left cervical: No superficial cervical adenopathy. Skin: General: Skin is warm and dry. Neurological: General: No focal deficit present. Mental Status: She is alert and oriented to person, place, and time. ALLERGIES Allergen Reactions Adhesive Rash ECG patch made skin red and raw; needs hypoallergenic patches for ECG and other testing needing patches Aggrenox [Aspirin-D* Other: See Comments Headache Bactrim [Sulfametho* dizzy, redness, face flushed Betadine [Povidone-* Rash Cetacaine [Butamben* Other: See Comments excessive mucous production Cigarette Smoke Shortness of Breath Hard to breathe Codeine Intolerance Cortisone Shortness of Breath injection was given and swelled and had trouble breathing Depo-Medrol [Methyl* Other: See Comments FACE SWELLED AFTER CORTISONE SHOT IN KNEE Detrol [Tolterodine* Intolerance HEAD ACHE ,DRY MOUTH Ditropan [Oxybutyni* Intolerance DIZZY,SUN SENSITIVE Latex Rash Lisinopril Intolerance mandibular pain, lymphadenopathy, possible angio edema per [facility] ER note 04/24/2022 Meclizine Swelling URINARY RETENTION,FACE FELT FUNNY Metoprolol GI Upset headache.itching.hives. Myrbetriq [Mirabegr* Other: See Comments elevated BP Prevacid [Lansopraz* GI Upset GAS,BURPING HEADACHE Prilosec [Omeprazol* Diarrhea Tape [Adhesive Tape* Rash Paper tape Tizanidine Other: See Comments increased pain Zelnorm [Tegaserod * Hives Medication amLODIPine (NORVASC) 5 mg tablet Take 1 tablet by mouth once daily. levothyroxine (SYNTHROID) 88 mcg tablet Take 1 tablet by mouth once daily. Take on empty stomach. For Thyroid Artificial Tear, Hypromellose, (SYSTANE GEL) 0.3 % gel 1 Drop daily at bedtime. aspirin, enteric coated (ASPIRIN, ENTERIC COATED) 81 mg EC tablet Take 81 mg by mouth. budesonide (PULMICORT) 0.5 mg/2 mL nebulizer solution Use 0.5 mg via nebulizer once daily. cranberry fruit concentrate (AZO CRANBERRY) 250 mg chew Take by mouth. cholecalciferol, vitamin D3, 10 mcg (400 unit) cap Take 400 Units by mouth once daily. 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 DX: EDEMA 782.3, venous insuffiency 459.81 (Futuro therapeutic open heel and open toe if available) acetaminophen (TYLENOL) 325 mg tablet Take 650 mg by mouth every 6 hours as needed. Tylenol arthritis multivitamin ORAL tablet Take 1 tablet by mouth twice daily. spironolactone (ALDACTONE) 25 mg tablet Take 1 tablet by mouth once daily. [START ON 04/06/2023] gabapentin (NEURONTIN) 100 mg capsule Take 3 capsules by mouth daily at bedtime for 180 days. Do not start before April 06, 2023. ipratropium-albuterol (DUONEB) 0.5 mg-3 mg(2.5 mg base)/3 mL nebu Inhale 3 mL as instructed every 6 hours. Unit dose pack. dr Park pulmonology. [START ON 04/27/2023] diazePAM (VALIUM) 5 mg tablet Take 1 tablet by mouth at bedtime as needed (vertigo or anxiety) for up to 90 days. Do not start before April 27, 2023. 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 Charlton) Cataracts, both eyes Coronary atherosclerosis of unspecified type of vessel, [place] or graft minimal plaque on cath 08/06/2006 DVT (deep venous thrombosis) (HCC) 2010 Right leg OCTOBER 2009 NOT TREATED Dysmetabolic syndrome X Esophageal reflux Fibromyalgia better with Lyrica Floppy eyelid syndrome Hiatal hernia Large when seen on EGD 10/2010 at [facility] (Dr. 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 retrograde persistalsis of esphagus causing episode of emesis Spondylosis TMJ arthritis right Unspecified essential hypertension Unspecified hypothyroidism Social History Tobacco Use Smoking status: Never Smokeless tobacco: Never Vaping Use Vaping Use: Never used Substance Use Topics Alcohol use: Yes Comment: occasionally rare Drug use: No Component Latest Ref Rng & Units 08/23/2022 08/28/2022 02/19/2023 WBC 3.70 - 11.00 k/uL 8.15 9.12 RBC 3.90 - 5.20 m/uL 4.55 4.50 Hemoglobin 11.5 - 15.5 g/dL 14.0 14.0 Hematocrit 36.0 - 46.0 % 43.7 42.7 MCV 80.0 - 100.0 fL 96.0 94.9 MCH 26.0 - 34.0 pg 30.8 31.1 MCHC 30.5 - 36.0 g/dL 32.0 32.8 RDW-CV 11.5 - 15.0 % 13.8 13.5 Platelet Count 150 - 400 k/uL 390 370 MPV 9.0 - 12.7 fL 10.2 9.8 Neut% % 47.9 Abs Neut (ANC) 1.45 - 7.50 k/uL 4.36 Lymph% % 32.3 Abs Lymph 1.00 - 4.00 k/uL 2.95 Fillmore% % 10.2 Abs [place] <0.87 k/uL 0.93 (H) Eosin% % 8.0 Abs Eosin <0.46 k/uL 0.73 (H) Baso% % 1.3 Abs Baso <0.11 k/uL 0.12 (H) Immature Gran % % 0.3 IMMATURE GRANS (ABS) <0.10 k/uL 0.03 NRBC /100 WBC 0.0 Absolute nRBC <0.01 k/uL <0.01 <0.01 DTYPE Auto Protein, Total 6.3 - 8.0 g/dL 7.8 7.2 Albumin 3.9 - 4.9 g/dL 4.3 4.1 Calcium 8.5 - 10.2 mg/dL 10.1 9.7 Bilirubin, Total 0.2 - 1.3 mg/dL 0.6 0.5 Alkaline Phosphatase 34 - 123 U/L 73 60 AST 13 - 35 U/L 21 21 ALT 7 - 38 U/L 20 24 Glucose 74 - 99 mg/dL 130 (H) 119 (H) BUN 7 - 21 mg/dL 18 19 Creatinine 0.58 - 0.96 mg/dL 0.87 0.81 Sodium 136 - 144 mmol/L 142 142 Potassium 3.7 - 5.1 mmol/L 4.9 4.6 Chloride 97 - 105 mmol/L 106 (H) 103 CO2 22 - 30 mmol/L 25 27 Anion Gap 9 - 18 mmol/L 11 12 eGFR >=60 mL/min/1.73m 71 77 Cholesterol, Total <200 mg/dL 180 179 Triglyceride <150 mg/dL 77 74 HDL Cholesterol >39 mg/dL 54 54 Non HDL Cholesterol <130 mg/dL 126 125 Fasting Time hrs 13 10 VLDL Cholesterol <30 mg/dL 15 15 TC:HDL Ratio <5.10 3.33 3.31 LDL Cholesterol <100 mg/dL 111 (H) 110 (H) LDL:HDL Ratio <2.54 2.06 2.04 Hemoglobin A1C 4.3 - 5.6 % 6.3 (H) 6.1 (H) Estimated Average Glucose mg/dL 134 128 TSH 0.270 - 4.200 mIU/L 1.980 2.290 3.670 Free T4 0.9 - 1.7 ng/dL 1.2 Free T3 2.3 - 4.1 pg/mL 2.7 Vitamin D 25 Hydroxy 31.0 - 80.0 ng/mL 61.8 ASSESSMENT/PLAN: 1. Acquired hypothyroidism - ICD9: 244.9, ICD10: E03.9 (primary diagnosis) Stable, currently controlled, continue to monitor. Continue current treatment unchanged - LEVOTHYROXINE 88 MCG TABLET - COMP METABOLIC PANEL - TSH BLD 2. Essential hypertension - ICD9: 401.9, ICD10: I10 controlled - Encouraged sodium restriction, DASH or Mediterranean diet - Recommend regular aerobic exercise - COMP METABOLIC PANEL - CBC + DIFF ASSESSMENT/PLAN: 1. Acquired hypothyroidism - ICD9: 244.9, ICD10: E03.9 (primary diagnosis) - TSH BLD 2. Essential hypertension - ICD9: 401.9, ICD10: I10 controlled - Continue current medications - Encouraged sodium restriction, DASH or Mediterranean diet - Recommend regular aerobic exercise - SPIRONOLACTONE 25 MG TABLET - COMP METABOLIC PANEL - CBC + DIFF 3. Chronic bilateral low back pain with bilateral sciatica - ICD9: 724.2, 724.3, 338.29, ICD10: M54.42, M54.41, G89.29 Stable with current treatment, continue unchanged for now, continue to monitor. - GABAPENTIN 100 MG CAPSULE 4. Elevated glucose - ICD9: 790.29, ICD10: R73.09 Endorse limiting excess sugars and sweets in diet, maintain routine exercise such as walking as able. A1c has improved since last checked. - HGB A1C 5. Mixed hyperlipidemia - ICD9: 272.2, ICD10: E78.2 Recommend a plant based diet such as Mediterranean diet with plenty of vegetables, fruits,whole grains, fish, chicken, turkey or plant proteins and routine exercise such as walking - COMP METABOLIC PANEL - LIPID PANEL BASIC 6. Encounter for immunization - ICD9: V03.89, ICD10: Z23 deferred to later date - RSV PRINTED PHARMACY INSTRUCTIONS - INFLUENZA VACCINE, PRSV FREE, AGE 65+ YR, HIGH DOSE, QUADRIVALENT (FLUZONE HIGH-DOSE) - Oilex-Handy COVID-19 VACCINE ( SEASON) AGE 12+ YR 6 mo follow up MD Joya Lerma APRN.BEAUTY OPERATOR APPRENTICE 3. Encounter for immunization - ICD9: V03.89, ICD10: Z23 - TDAP VACCINE, AGE 7+ YR (ADACEL, BOOSTRIX) 4. History of total adrenalectomy (HCC) - ICD9: V45.79, ICD10: E89.6 Stable, currently controlled, continue to monitor. Joya Rodriguez APRN.BEAUTY OPERATOR APPRENTICE Medical Decision Making: Problems: Moderate: 2+ stable chronic illnesses Data: Unique test(s) ordered: 3+ Risk: Moderate: Drug management Medical Decision Making Level: 4 - Moderate documented in this encounter [facility] 02-12-2023 Miscellaneous Notes The following approved medication requests have been transmitted electronically. Requested Prescriptions Signed Prescriptions Disp Refills gabapentin (NEURONTIN) 100 mg capsule 30 capsule 0 Sig: Take 3 capsules by mouth daily at bedtime for 10 days. Authorizing Provider: PAULO RIOJAS MD Patient reports [facility] tells her, her gabapentin refill is stuck in [place]. Pharmacy advised patient to ask pcp to send short supply to local pharmacy, a 10 day supply. Pended for LIANA Menard, per patient request. Patient reports she is out of medication. documented in this encounter [facility] 11-11-2022 Miscellaneous Notes Pt received message and said she got a hold of Dr Casper and he is having her do more testing. She is waiting on specific container to come in for testing. Called pt, no answer. Did not have voicemail. Will need to call back. Hillary Garcia RN Was there something that she wanted us to address regarding the labs? Or is Dr Casper managing? Pt called in and reports she had labs drawn by Dr Casper in September and she wanted to know if we would be able to get them from [facility]. I let her know we have a lot of labs in that had been ordered by Dr Casper. She states Dr Casper told her she she had an infection. documented in this encounter [facility] 10-26-2022 Miscellaneous Notes The following approved medication requests have been transmitted electronically. Requested Prescriptions Signed Prescriptions Disp Refills diazePAM (VALIUM) 5 mg tablet 30 tablet 2 Sig: Take 1 tablet by mouth at bedtime as needed (vertigo or anxiety) for up to 90 days. Authorizing Provider: PAULO RIOJAS MD Patient phones requesting refills as follows: Requested Prescriptions Pending Prescriptions Disp Refills diazePAM (VALIUM) 5 mg tablet 30 tablet 2 Sig: Take 1 tablet by mouth at bedtime as needed (vertigo or anxiety) for up to 90 days. *Pt states she is down to 3 pills. Please review and advise. Brayan Larson LPN documented in this encounter [facility] 09-19-2022 Note HNO ID: [id number] Author: Ryan Chicas MD Service: ? Author Type: Physician Type: Progress Notes Filed: 09/19/2022 4:29 PM Note Text: Patient presents with: c/o rash on right side of face and lower left abdomen HPI: Rash: Location: right face, left lower abdomen Duration: woke with yesterday Pruritis: Yes Pain: some discomfort Change: spreading Bleeding/ulceration/blister/pustu le: red and bumpy without blisters or pustules Contacts with rash: No Exposure: No new soaps, detergents, fabric softeners, lotions. Outdoor exposure: Not in the last couple days, no pets. Change in medications: No. Recent illness: No. Treatment: anjum Reports she has had shingles twice before (face and arm). MEDICATIONS: amLODIPine (NORVASC) 5 mg tablet Take 1 tablet by mouth once daily. levothyroxine (SYNTHROID) 88 mcg tablet Take 1 tablet by mouth once daily. Take on empty stomach. For Thyroid [START ON 10/08/2022] gabapentin (NEURONTIN) 100 mg capsule Take 3 capsules by mouth daily at bedtime for 180 days. Do not start before October 08, 2022. spironolactone (ALDACTONE) 25 mg tablet Take 25 mg by mouth once daily. levothyroxine (SYNTHROID) 88 mcg tablet Take 1 tablet by mouth once daily. Take on empty stomach. For Thyroid (Patient not taking: Reported on 09/06/2022) diazePAM (VALIUM) 5 mg tablet Take 1 tablet by mouth at bedtime as needed (vertigo or anxiety) for up to 90 days. Artificial Tear, Hypromellose, (SYSTANE GEL) 0.3 % gel 1 Drop daily at bedtime. aspirin, enteric coated (ASPIRIN, ENTERIC COATED) 81 mg EC tablet Take 81 mg by mouth. budesonide (PULMICORT) 0.5 mg/2 mL nebulizer solution Use 0.5 mg via nebulizer once daily. cranberry fruit concentrate (AZO CRANBERRY) 250 mg chew Take by mouth. cholecalciferol, vitamin D3, 10 mcg (400 unit) cap Take 400 Units by mouth once daily. 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 DX: EDEMA 782.3, venous insuffiency 459.81 (Futuro therapeutic open heel and open toe if available) acetaminophen (TYLENOL) 325 mg tablet Take 650 mg by mouth every 6 hours as needed. Tylenol arthritis multivitamin ORAL tablet Take 1 tablet by mouth twice daily. ALLERGIES: ALLERGIES Allergen Reactions Ekg Patches [Other] Hives skin gets red and raw needs hypoalergetic patches also any patch used for testing Aggrenox [Aspirin-D* Other: See Comments Headache Bactrim [Sulfametho* dizzy, redness, face flushed Betadine [Povidone-* Rash Cetacaine [Butamben* Other: See Comments excessive mucous production Cigarettes [Other] Shortness of Breath Hard to breath/has a sensitivity not an allergy Codeine Intolerance Cortisone Shortness of Breath injection was given and swelled and had trouble breathing Depomedrol [Other] Swelling FACE SWELLED AFTER CORTISONE SHOT IN KNEE Detrol [Tolterodine* Intolerance HEAD ACHE ,DRY MOUTH Ditropan [Oxybutyni* Intolerance DIZZY,SUN SENSITIVE Latex Rash Lisinopril Intolerance mandibular pain, lymphadenopathy, possible angio edema per [facility] ER note 04/24/2022 Meclizine Swelling URINARY RETENTION,FACE FELT FUNNY Metoprolol GI Upset headache.itching.hives. Myrbetriq [Mirabegr* Other: See Comments elevated BP Paper Tape [Other] Rash Prevacid [Lansopraz* GI Upset GAS,BURPING HEADACHE Prilosec [Omeprazol* Diarrhea Tizanidine Other: See Comments increased pain Zelnorm [Tegaserod * Hives VITALS: BP 128/82 Pulse 85 Temp 36.3 ?C (97.3 ?F) (Temporal) Resp 16 Wt 88.5 kg (195 lb) SpO2 97% BMI 33.47 kg/m? PHYSICAL EXAM: GEN: pleasant, no acute distress, alert SKIN: slightly raised erythematous patches (1.5cm to 0.5cm) distributed from the right anglican to below the right lip. Tiny ulceration or early vesicles on the small lesions below the lip. Erythematous macular rash with excoriations in the fold below the left panus. ASSESSMENT/PLAN: 1. Rash - ICD9: 782.1, ICD10: R21 (primary diagnosis) Low suspicion for recurrent zoster but rash is in V3 distribution on the face. Probably contact dermatitis. - HSV1,2/VZV NAAT LESION Start - VALACYCLOVIR 1 GRAM TABLET, may discontinue if negative for VZV. 2. Intertrigo - ICD9: 695.89, ICD10: L30.4 Seems unrelated to face rash. - NYSTATIN 100,000 UNIT/GRAM TOPICAL POWDER Ryan Chicas MD [facility] 09-19-2022 History of Present illness Narrative Patient presents with: c/o rash on right side of face and lower left abdomen HPI: Rash: Location: right face, left lower abdomen Duration: woke with yesterday Pruritis: Yes Pain: some discomfort Change: spreading Bleeding/ulceration/blister/pustu le: red and bumpy without blisters or pustules Contacts with rash: No Exposure: No new soaps, detergents, fabric softeners, lotions. Outdoor exposure: Not in the last couple days, no pets. Change in medications: No. Recent illness: No. Treatment: anjum Reports she has had shingles twice before (face and arm). MEDICATIONS: amLODIPine (NORVASC) 5 mg tablet Take 1 tablet by mouth once daily. levothyroxine (SYNTHROID) 88 mcg tablet Take 1 tablet by mouth once daily. Take on empty stomach. For Thyroid [START ON 10/08/2022] gabapentin (NEURONTIN) 100 mg capsule Take 3 capsules by mouth daily at bedtime for 180 days. Do not start before October 08, 2022. spironolactone (ALDACTONE) 25 mg tablet Take 25 mg by mouth once daily. levothyroxine (SYNTHROID) 88 mcg tablet Take 1 tablet by mouth once daily. Take on empty stomach. For Thyroid (Patient not taking: Reported on 09/06/2022) diazePAM (VALIUM) 5 mg tablet Take 1 tablet by mouth at bedtime as needed (vertigo or anxiety) for up to 90 days. Artificial Tear, Hypromellose, (SYSTANE GEL) 0.3 % gel 1 Drop daily at bedtime. aspirin, enteric coated (ASPIRIN, ENTERIC COATED) 81 mg EC tablet Take 81 mg by mouth. budesonide (PULMICORT) 0.5 mg/2 mL nebulizer solution Use 0.5 mg via nebulizer once daily. cranberry fruit concentrate (AZO CRANBERRY) 250 mg chew Take by mouth. cholecalciferol, vitamin D3, 10 mcg (400 unit) cap Take 400 Units by mouth once daily. 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 DX: EDEMA 782.3, venous insuffiency 459.81 (Futuro therapeutic open heel and open toe if available) acetaminophen (TYLENOL) 325 mg tablet Take 650 mg by mouth every 6 hours as needed. Tylenol arthritis multivitamin ORAL tablet Take 1 tablet by mouth twice daily. ALLERGIES: ALLERGIES Allergen Reactions Ekg Patches [Other] Hives skin gets red and raw needs hypoalergetic patches also any patch used for testing Aggrenox [Aspirin-D* Other: See Comments Headache Bactrim [Sulfametho* dizzy, redness, face flushed Betadine [Povidone-* Rash Cetacaine [Butamben* Other: See Comments excessive mucous production Cigarettes [Other] Shortness of Breath Hard to breath/has a sensitivity not an allergy Codeine Intolerance Cortisone Shortness of Breath injection was given and swelled and had trouble breathing Depomedrol [Other] Swelling FACE SWELLED AFTER CORTISONE SHOT IN KNEE Detrol [Tolterodine* Intolerance HEAD ACHE ,DRY MOUTH Ditropan [Oxybutyni* Intolerance DIZZY,SUN SENSITIVE Latex Rash Lisinopril Intolerance mandibular pain, lymphadenopathy, possible angio edema per [facility] ER note 04/24/2022 Meclizine Swelling URINARY RETENTION,FACE FELT FUNNY Metoprolol GI Upset headache.itching.hives. Myrbetriq [Mirabegr* Other: See Comments elevated BP Paper Tape [Other] Rash Prevacid [Lansopraz* GI Upset GAS,BURPING HEADACHE Prilosec [Omeprazol* Diarrhea Tizanidine Other: See Comments increased pain Zelnorm [Tegaserod * Hives VITALS: BP 128/82 Pulse 85 Temp 36.3 C (97.3 F) (Temporal) Resp 16 Wt 88.5 kg (195 lb) SpO2 97% BMI 33.47 kg/m PHYSICAL EXAM: GEN: pleasant, no acute distress, alert SKIN: slightly raised erythematous patches (1.5cm to 0.5cm) distributed from the right anglican to below the right lip. Tiny ulceration or early vesicles on the small lesions below the lip. Erythematous macular rash with excoriations in the fold below the left panus. ASSESSMENT/PLAN: 1. Rash - ICD9: 782.1, ICD10: R21 (primary diagnosis) Low suspicion for recurrent zoster but rash is in V3 distribution on the face. Probably contact dermatitis. - HSV1,2/VZV NAAT LESION Start - VALACYCLOVIR 1 GRAM TABLET, may discontinue if negative for VZV. 2. Intertrigo - ICD9: 695.89, ICD10: L30.4 Seems unrelated to face rash. - NYSTATIN 100,000 UNIT/GRAM TOPICAL POWDER Ryan Chicas MD documented in this encounter [facility] 09-18-2022 Miscellaneous Notes Patient has been identified by name and date of : Yes, Patient phones for refill(s): Requested Prescriptions Pending Prescriptions Disp Refills amLODIPine (NORVASC) 5 mg tablet 90 tablet 3 Sig: Take 1 tablet by mouth once daily. Date of last office visit in primary care: 09/06/22 Last 2 Encounter Wt Readings: Date: Wt: 09/06/2022 86.6 kg (191 lb) 08/23/2022 86.6 kg (191 lb) Previous labs/tests for medication: Not applicable Please advise. Thank you. America Angel LPN documented in this encounter [facility] 09-16-2022 Miscellaneous Notes September 16, 2022 PID: [id number] Eileen Rojas [address] [place] [address] Dear Ms. Rojas, We are pleased to inform you that the results of your recent breast imaging exam on 09/13/2022 are normal. Early detection of cancer is very important. We also understand recommendations regarding breast cancer screening are controversial. Please discuss with your primary care provider which strategy is best for you and whether a mammogram is right for you. Your imaging studies and report will be kept on file at [facility] as part of your permanent medical record and are available for your continuing care. Thank you for allowing us to help in meeting your health care needs. Sincerely, Dr. Tracy Interpreting Radiologist [facility] (Normal over 40) documented in this encounter [facility] 09-13-2022 Note HNO ID: [id number] Author: RT Stephania(R) Service: ? Author Type: Technologist Type: Progress Notes Filed: 09/13/2022 1:02 PM Note Text: Radiology Service Progress Note PATIENT NAME: Eileen Rojas DATE OF SERVICE: September 13, 2022 TIME: 1:02 PM PATIENT IDENTITY VERIFICATION COMPLETED USING TWO (2) IDENTIFIERS: Name and Date of confirmed by patient verbally. FALL SCREENING: Has the patient had 2 falls in the last year or 1 fall with injury or currently using an Ambulatory Assistive Device (Walker, Cane, Wheelchair, Crutches, etc.)? No PATIENT GENDER DATA: Female. status: : No status: NO. PATIENT RELEVANT IMPLANT DATA REVIEWED: Not Applicable RADIOLOGY DEPARTMENT: Mammography PERIPHERAL IV DATA: Not applicable SIGNED BY: RT Stephania(R) September 13, 2022 1:02 PM [facility] 09-13-2022 History of Present illness Narrative Radiology Service Progress Note PATIENT NAME: Eileen Rojas DATE OF SERVICE: September 13, 2022 TIME: 1:02 PM PATIENT IDENTITY VERIFICATION COMPLETED USING TWO (2) IDENTIFIERS: Name and Date of confirmed by patient verbally. FALL SCREENING: Has the patient had 2 falls in the last year or 1 fall with injury or currently using an Ambulatory Assistive Device (Walker, Cane, Wheelchair, Crutches, etc.)? No PATIENT GENDER DATA: Female. status: : No status: NO. PATIENT RELEVANT IMPLANT DATA REVIEWED: Not Applicable RADIOLOGY DEPARTMENT: Mammography PERIPHERAL IV DATA: Not applicable SIGNED BY: RT Stephania(R) September 13, 2022 1:02 PM documented in this encounter [facility] 09-11-2022 Miscellaneous Notes Records show valid rx at the pharmacy. .or documented in this encounter [facility] 09-06-2022 Note HNO ID: [id number] Author: Joya Rodriguez APRN.BEAUTY OPERATOR APPRENTICE Service: ? Author Type: Nurse Specialist Type: Progress Notes Filed: 09/06/2022 11:12 AM Note Text: SUBJECTIVE: DTAP,TDAP,TD(1 - Tdap) due on 11/19/2019 MAMMOGRAM due on 07/21/2021 HPI Eileen Rojas is a 72 year old female. 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 HTN: Without report of headache, chest pain, palpitations, dyspnea, and peripheral edema. Last 14 Encounter BP Readings: Date: BP: 09/06/2022 127/82 08/23/2022 142/100 05/17/2022 136/82 04/26/2022 126/82 02/22/2022 118/82 08/23/2021 126/74 01/19/2021 122/72 09/27/2020 139/78 08/25/2020 150/98 07/11/2020 124/78 12/14/2019 116/74 11/18/2019 136/84 02/16/2019 112/70 01/22/2019 138/82 Hypothyroidism. TSH Date Value 08/28/2022 2.290 mIU/L 08/23/2022 1.980 mIU/L 01/13/2021 2.780 uU/mL 03/16/2020 3.460 uU/mL ) Review of Systems Constitutional: Negative. HENT: Negative. Respiratory: Negative. Cardiovascular: Negative. Musculoskeletal: Positive for arthralgias. Objective BP 127/82 Pulse 73 Resp 16 Wt 86.6 kg (191 lb) BMI 32.79 kg/m? Physical Exam Vitals and nursing note reviewed. Constitutional: Appearance: Normal appearance. HENT: Head: Normocephalic and atraumatic. Eyes: Conjunctiva/sclera: Conjunctivae normal. Neck: Thyroid: No thyromegaly. Vascular: No JVD. Cardiovascular: Rate and Rhythm: Normal rate and regular rhythm. Heart sounds: Normal heart sounds. Pulmonary: Effort: Pulmonary effort is normal. Breath sounds: Normal breath sounds. Abdominal: General: Bowel sounds are normal. Palpations: Abdomen is soft. Lymphadenopathy: Cervical: Left cervical: No superficial cervical adenopathy. Skin: General: Skin is warm and dry. Neurological: General: No focal deficit present. Mental Status: She is alert and oriented to person, place, and time. ALLERGIES Allergen Reactions Ekg Patches [Other] Hives skin gets red and raw needs hypoalergetic patches also any patch used for testing Aggrenox [Aspirin-D* Other: See Comments Headache Bactrim [Sulfametho* dizzy, redness, face flushed Betadine [Povidone-* Rash Cetacaine [Butamben* Other: See Comments excessive mucous production Cigarettes [Other] Shortness of Breath Hard to breath/has a sensitivity not an allergy Codeine Intolerance Cortisone Shortness of Breath injection was given and swelled and had trouble breathing Depomedrol [Other] Swelling FACE SWELLED AFTER CORTISONE SHOT IN KNEE Detrol [Tolterodine* Intolerance HEAD ACHE ,DRY MOUTH Ditropan [Oxybutyni* Intolerance DIZZY,SUN SENSITIVE Latex Rash Lisinopril Intolerance mandibular pain, lymphadenopathy, possible angio edema per [facility] ER note 04/24/2022 Meclizine Swelling URINARY RETENTION,FACE FELT FUNNY Metoprolol GI Upset headache.itching.hives. Myrbetriq [Mirabegr* Other: See Comments elevated BP Paper Tape [Other] Rash Prevacid [Lansopraz* GI Upset GAS,BURPING HEADACHE Prilosec [Omeprazol* Diarrhea Tizanidine Other: See Comments increased pain Zelnorm [Tegaserod * Hives Medication [START ON 10/08/2022] gabapentin (NEURONTIN) 100 mg capsule Take 3 capsules by mouth daily at bedtime for 180 days. Do not start before October 08, 2022. spironolactone (ALDACTONE) 25 mg tablet Take 25 mg by mouth once daily. diazePAM (VALIUM) 5 mg tablet Take 1 tablet by mouth at bedtime as needed (vertigo or anxiety) for up to 90 days. amLODIPine (NORVASC) 5 mg tablet Take 1 tablet by mouth once daily. Artificial Tear, Hypromellose, (SYSTANE GEL) 0.3 % gel 1 Drop daily at bedtime. aspirin, enteric coated (ASPIRIN, ENTERIC COATED) 81 mg EC tablet Take 81 mg by mouth. budesonide (PULMICORT) 0.5 mg/2 mL nebulizer solution Use 0.5 mg via nebulizer once daily. cranberry fruit concentrate (AZO CRANBERRY) 250 mg chew Take by mouth. cholecalciferol, vitamin D3, 10 mcg (400 unit) cap Take 400 Units by mouth once daily. COMPOUNDED PRESCRIPTION SEMI ELECTRIC HOSPITAL BED AND (more content not included)... [facility] 08-23-2022 Note HNO ID: [id number] Author: Joya Rodriguez APRN.BEAUTY OPERATOR APPRENTICE Service: ? Author Type: Nurse Specialist Type: Progress Notes Filed: 08/23/2022 4:13 PM Note Text: SUBJECTIVE: MAMMOGRAM due on 07/21/2021 COLORECTAL CANCER SCREENING due on 03/02/2022 LDL CHOLESTEROL due on 08/04/2022 HPI Eileen Rojas is a 72 year old female. 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 She reports surgery for ganglion cyst of the right third finger in the 1970s. She notes feeling firm mass in third finger for 3 to 6 months. No change in size. Notes that this finger occasionally gets stuck, trigger finger. She notes numbness of the first and second fingers of the right hand after repetitive use. Soft mass on the right wrist. Arthritis of the right thumb. Eileen Rojas called the office with report of left-sided facial swelling, no slurred speech no pain or redness in the area no injury. She had a history of TIA and reported that she had right facial swelling and slurred speech at the time of her previous TIA. She was referred to emergency department. She was seen at [facility] on April 24, 2022 with report of left-sided jaw swelling and neck swelling. She reported this started on the day of arrival. noted no change from her usual appearance per notes. Exam showed some tenderness at the mandible and submandibular lymphadenopathy. CBC was completed and showed slight elevation of white cell count. Unremarkable metabolic panel. CT neck with contrast showed no acute findings. Thought possible reaction to lisinopril /possible angioedema so it was discontinued and she was started on Norvasc 2.[address] report -scanned documents Today reports she has not yet started amlodipine. Pain at site:decreased Lymphadenopathy:no Vision changes: 2 weeks ago, to see opthalmologist but needs to reschedule,no recurrence Speech changes: no changes Memory changes:no changes reported Mobility changes: none reported Presents today for routine follow up visit. Followed by [facility] [place] [facility] for CAD, last visit 07/2022: Gastroenterology: Was seeing Dr Chavarria, now to see Dr Casper in September. GERD/Sarmiento: notes fairly constant. States has GERD symptoms but not taking medication. States adjustment of diet helps most. Due for colonoscopy, Dr Casper follow up Valium for anxiety/vertigo: has been effective. Gabapentin for back pain, seems to help. Using hospital bed at home. HOB elevated helps with GERD at night. HTN: Without report of headache, chest pain, palpitations, dyspnea, and peripheral edema. Last 14 Encounter BP Readings: Date: BP: 08/23/2022 142/100 05/17/2022 136/82 04/26/2022 126/82 02/22/2022 118/82 08/23/2021 126/74 01/19/2021 122/72 09/27/2020 139/78 08/25/2020 150/98 07/11/2020 124/78 12/14/2019 116/74 11/18/2019 136/84 02/16/2019 112/70 01/22/2019 138/82 01/12/2019 136/84 Hyperlipidemia. Ms. Rojas reports doing well on current therapyHer most recent lipid panels are: Cholesterol, Total (mg/dL) Date Value 08/04/2021 172 01/13/2021 177 12/10/2019 171 HDL Cholesterol (mg/dL) Date Value 08/04/2021 50 01/13/2021 51 12/10/2019 53 LDL Cholesterol (mg/dL) Date Value 08/04/2021 103 01/13/2021 109 12/10/2019 102 Triglyceride (mg/dL) Date Value 08/04/2021 95 01/13/2021 85 12/10/2019 80 Hypothyroidism. States not taking Synthroid. TSH Date Value 02/15/2022 2.310 mIU/L 10/12/2021 1.750 mIU/L 01/13/2021 2.780 uU/mL 03/16/2020 3.460 uU/mL ) Review of Systems Constitutional: Negative. HENT: Negative. Respiratory: Negative. Cardiovascular: Negative. Musculoskeletal: Positive for arthralgias. Objective BP 142/100 Pulse 72 Resp 16 Wt 86.6 kg (191 lb) BMI 32.79 kg/m? Physical Exam Vitals and nursing note reviewed. Constitutional: Appearance: Normal appearance. HENT: Head: Normocephalic and atraumatic. Eyes: Conjunctiva/sclera: Conjunctivae normal. Neck: Thyroid: No thyromegaly. Vascular: No JVD. Cardiovascular: (more content not included)... [facility] 08-20-2022 Miscellaneous Notes Script sent. Patient calls and reports that she is not happy with [facility] services and is changing pharmacies to [facility]. Shae Palencia RN Attempted to reach patient to ask as to why switch is needed with no answer and unable to leave a message. Patient needs her Valium rx switched to [facility] in [place]. Refill date is tomorrow, 08/19/22. documented in this encounter [facility] 07-31-2022 Note Patient Outreach (IN TMMN) CRYSTALEILEEN TOLBERT ([id number]) 1950 F Date Time Provider Department 07/31/22 PAULO RIOJAS During your visit today, we recorded the following information about you: Allergies As of Date: 07/31/2022 Noted Allergy Reaction ekg patches [Other] 02/20/2006 4 - Hives Comments: skin gets red and raw needs hypoalergetic patches also any patch used for testing AGGRENOX (ASPIRIN-DIPYRIDAMOLE) 05/27/2011 14 - Other: See Comments Comments: Headache BACTRIM (SULFAMETHOXAZOLE-TRIMETH* 007 Comments: dizzy, redness, face flushed BETADINE (POVIDONE-IODINE) 11/04/2006 2 - Rash CETACAINE ([id number]* 3 14 - Other: See Comments Comments: excessive [...] DIZZY,SUN SENSITIVE LATEX 11/03/2009 2 - Rash LISINOPRIL 04/26/2022 5 - Intolerance Comments: mandibular pain, lymphadenopathy, possible angio edema per [facility] ER note 04/24/2022 MECLIZINE 03/07/2006 7 - Swelling Comments: URINARY [...] HYDROGEN RACHELL*03/07/2006 4 - Hives Date Reviewed: 05/17/2022 Reviewed by: Lisa Jasmine LPN - Fully Assessed Visit Diagnosis:Encounter for screening mammogram for breast cancer [Z12.31] Order(s):[facility] SCREENING [[id number]] Order #: [id number] FUTURE Prescriptions as of 08/05/2022 - diazePAM (VALIUM) 5 mg tablet Take 1 tablet by mouth at bedtime as needed (vertigo or anxiety) for up to 90 days. Do not start before August 20, 2022. - amLODIPine (NORVASC) 5 mg tablet Take 1 tablet by mouth once daily. - amLODIPine (NORVASC) 5 mg tablet Take 1 tablet by mouth once daily. - valACYclovir (VALTREX) 1 gram Take 2 tablets by mouth q 12 HR. for 2 doses - Artificial Tear, Hypromellose, (SYSTANE GEL) 0.3 % gel 1 Drop daily at bedtime. - aspirin, enteric coated (ASPIRIN, ENTERIC COATED) 81 mg EC tablet Take 81 mg by mouth. - budesonide (PULMICORT) 0.5 mg/2 mL nebulizer solution Use 0.5 mg via nebulizer once daily. - gabapentin (NEURONTIN) 100 mg capsule Take 3 capsules by mouth daily at bedtime for 180 days. - levothyroxine (SYNTHROID) 88 mcg tablet Take 1 tablet by mouth once daily. Take on empty stomach. For Thyroid - cranberry fruit concentrate (AZO CRANBERRY) 250 mg chew Take by mouth. - levothyroxine (SYNTHROID) 88 mcg tablet Take 1 tablet by mouth once daily. Take on empty stomach. For Thyroid - cholecalciferol, vitamin D3, 10 mcg (400 unit) cap Take 400 Units by mouth once daily. - COMPOUNDED PRESCRIPTION SEMI ELECTRIC HOSPITAL BED AND MATTRESS, with side rails Diagnoses: (K22.70) 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; (K21.9) Gastroesophageal reflux disease, esophagitis presence not specified; (I87.303) Stasis edema of both lower extremities; (R11.10) Regurgitation of food - Compression Knee Highs KNEE HIGH COMPRESSION STOCKINGS 20-30 MM. DX: EDEMA 782.3, venous insuffiency 459.81 (Futuro therapeutic open heel and open toe if available) - acetaminophen (TYLENOL) 325 mg tablet Take 650 mg by mouth every 6 hours as needed. Tylenol arthritis - multivitamin ORAL tablet Take 1 tablet by mouth twice daily. Meds Comments as of 08/19/2014: PILLS ARE HARD TO SWALLOW. Problem List As Of Date 07/31/2022 Noted Resolved Essential hypertension [I10] Acute, but ill-defined, cerebrovascular disease*09/28/2005 12/28/2016 Mixed hyperlipidemia [E78.2] Coronary atherosclerosis [I25.10] 1) Laparotomy 2) Joann gastroplasty 3) Wedge t* 06/30/2011 IRRITABLE COLON [K58.9] DYSMETABOLIC SYNDROME X [E88.81] Hypothyroidism [E03.9] DVT (deep venous thrombosis) (HCC) [I82.409] 11/02/2009 03/04/2017 Anemia [D64.9] 10/18/2010 1) Laparotomy 2) Ojann gastroplasty 3) Wedge * Obesity [E66.9] Discharge planning [Z71.89] 06/26/2011 09/03/2011 Other acute postoperative pain [G89.18] 06/26/2011 09/03/2011 Dysphagia [R13.10] 02/05/2012 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 [K22.70] OAB (overactive bladder) [N32.81] 06/16/2013 Revers (more content not included)... [facility] 07-30-2022 Miscellaneous Notes Patient has been identified by name and date of : Yes, Patient phones for refill(s): Requested Prescriptions Pending Prescriptions Disp Refills diazePAM (VALIUM) 5 mg tablet 30 tablet 2 Sig: Take 1 tablet by mouth at bedtime as needed (vertigo or anxiety) for up to 90 days. Do not start before August 20, 2022. Date of last office visit in primary care: 05/17/2022 6 month follow-up: 08/23/2022 Last 2 Encounter Wt Readings: Date: Wt: 05/17/2022 88 kg (194 lb) 04/26/2022 88 kg (194 lb) Previous labs/tests for medication: Not applicable Please advise. Thank you. Arleen Hamm LPN documented in this encounter [facility] 05-25-2022 Miscellaneous Notes Pt called and is notified of providers message and instructions. Pt voices understanding. Hillary Garcia RN The following approved medication requests have been transmitted electronically. Requested Prescriptions Signed Prescriptions Disp Refills amLODIPine (NORVASC) 5 mg tablet 30 tablet 0 Sig: Take 1 tablet by mouth once daily. Authorizing Provider: PAULO RIOJAS amLODIPine (NORVASC) 5 mg tablet 90 tablet 3 Sig: Take 1 tablet by mouth once daily. Authorizing Provider: PAULO RIOJAS MD Patient only has 6 tablets left of the 2.5 mg. Requesting a short supply to go to [facility] and 90 day supply to [facility] mail away. Please let her know okay to increase amlodipine to 5 mg daily (can take two tabs of the 2.5 mg dose until new script filled) and monitor bp, send us an update next week. Patient has bp/O2 monitor at home and does check blood pressure and they have been running about the same OT had. Patient checked bp while on phone and reading was 146/90. PT also coming to the house tomorrow and checks bp. Patient notes that bp medication was changed last month from lisinopril 10 mg to amolodipine 2.5 mg due to a possible reaction to the lisinopril. Noted Last 5 Encounter BP Readings: Date: BP: 05/17/2022 136/82 04/26/2022 126/82 02/22/2022 118/82 08/23/2021 126/74 01/19/2021 122/72 See if patient has BP cuff to monitor BP or if still has HHN and/or PT following to check BP VANNESA Alexis @ [facility] calling to let provider know patient discharged by OT today. Her BP was 144/96 P 77 prior to therapy. No re-check done. Tricia Crockett RN documented in this encounter [facility] 05-22-2022 Miscellaneous Notes PDMP website checked and validated. All prescriptions have been APPROPRIATELY filled. No suspicious activity was identified. 05/22/2022 by Promise Fay APRN.BAGGAGE AND MAIL AGENT Last office visit: 05/17/22 Next appointment scheduled: 08/23/22 Patient phones requesting refills as follows: Requested Prescriptions Pending Prescriptions Disp Refills diazePAM (VALIUM) 5 mg tablet 30 tablet 2 Sig: Take 1 tablet by mouth at bedtime as needed (vertigo or anxiety) for up to 180 days. Please review and advise. Reshma Carson LPN documented in this encounter [facility] 05-17-2022 Note HNO ID: [id number] Author: Paulo Riojas MD Service: ? Author Type: Physician Type: Progress Notes Filed: 06/17/2022 12:37 AM Note Text: This note was created using Save22riter. Subjective Eileen Rojas is a 72 year old female. Patient presents with: Established Patient: Follow up BLE weakness and pain SUBJECTIVE: Eileen Rojas is a 72 year old year old lady here today for hospital follow up appointment for review of medical conditions. States that had pain in legs with exacerbation of swelling despite wearing support hose. [place] like someone was punching her in back of her calves. Had to have the stockings taken off since was contributing to the pain. Eyes rolled in back of her head. Heavy Equipment Plumbing Supervisor drove her to the hospital in her own car to the hospital. PT saw her at home. nurse and aids. Still has pain in legs but better. Still not steady with walking around home. Less pain with getting down the two steps to garage. Not sure cause for the sudden onset of pain, unsteadiness and trouble with ambulation. PT will do evaluation 05/24 to see how she is doing. Was also wearing back brace. PAST MEDICAL HISTORY Diagnosis Date Acute, but ill-defined, cerebrovascular disease 09/28/2005 AND 2008 TIA x2 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 11/02/12 E[facility] (Dr. Charlton) Cataracts, both eyes Coronary atherosclerosis of unspecified type of vessel, [place] or graft minimal plaque on cath 08/06/2006 DVT (deep venous thrombosis) ([facility]) 2010 Right leg OCTOBER 2009 NOT TREATED Dysmetabolic syndrome X Esophageal reflux Fibromyalgia better with Lyrica Floppy eyelid syndrome Hiatal hernia Large when seen on EGD 10/2010 at [facility] (Dr. 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 retrograde persistalsis of esphagus causing episode of emesis Spondylosis TMJ arthritis right Unspecified essential hypertension Unspecified hypothyroidism Current Outpatient Medications Medication Sig Artificial Tear, Hypromellose, (SYSTANE GEL) 0.3 % gel 1 Drop daily at bedtime. aspirin, enteric coated (ASPIRIN, ENTERIC COATED) 81 mg EC tablet Take 81 mg by mouth. budesonide (PULMICORT) 0.5 mg/2 mL nebulizer solution Use 0.5 mg via nebulizer once daily. amLODIPine (NORVASC) 2.5 mg tablet Take 1 tablet by mouth once daily. gabapentin (NEURONTIN) 100 mg capsule Take 3 capsules by mouth daily at bedtime for 180 days. cranberry fruit concentrate (AZO CRANBERRY) 250 mg chew Take by mouth. diazePAM (VALIUM) 5 mg tablet Take 1 tablet by mouth at bedtime as needed (vertigo or anxiety) for up to 180 days. levothyroxine (SYNTHROID) 88 mcg tablet Take 1 tablet by mouth once daily. Take on empty stomach. For Thyroid cholecalciferol, vitamin D3, 10 mcg (400 unit) cap Take 400 Units by mouth once daily. 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 DX: EDEMA 782.3, venous insuffiency 459.81 (Futuro therapeutic open heel and open toe if available) acetaminophen (TYLENOL) 325 mg tablet Take 650 mg by mouth every 6 hours as needed. Tylenol arthritis multivitamin ORAL tablet Take 1 tablet by mouth twice daily. levothyroxine (SYNTHROID) 88 mcg tablet Take 1 tablet by mouth once daily. Take on empty stomach. For Thyroid (Patient not taking: No sig reported) No current facility-administered medications for this visit. Review of Systems Objective BP 136/82 Pulse 83 Temp 37.1 ?C (98.7 ?F) Resp 18 Wt 88 kg (194 lb) SpO2 97% BMI 33.30 kg/m? Physical Exam Constitutional: Appearance: Normal appearance. HENT: Head: Normocephalic. Eyes: Conjunctiva/sclera: Conjunctivae normal. Cardiovascular: Rate and Rhythm: Normal rate and regular rhythm. Heart sounds: Normal heart sounds. Comments: Right with more swelling than left; tender to palpation Pulmonary: Effort: Pulmonary effort is normal. Breath sounds: Normal breath sounds. Musculoskeletal: Right lower le+ Edema present. Left lower le+ Edema present. Skin: General: Skin is warm and dry. Neurological: General: No focal deficit present. Mental Status: She is alert and oriented to person, place, and time. Psychiatric: Mood and Affect: Mood normal. Behavior: Behavior normal. Thought Content: Thought content normal. Judgment: Judgment normal. Antalgic gait. Walks with cane . Has walker as well. Stands easily. Assessment and Plan Encounter Diagnosis ICD-10-CM 1. Pain in both lower extremities M79.604 M79.605 2. Bilateral leg edema R60.0 3. Imbalance R26.89 (more content not included)... [facility] 05-17-2022 History of Present illness Narrative This note was created using Save22riter. Subjective Eileen Rojas is a 72 year old female. Patient presents with: Established Patient: Follow up BLE weakness and pain SUBJECTIVE: Eileen Rojas is a 72 year old year old lady here today for hospital follow up appointment for review of medical conditions. States that had pain in legs with exacerbation of swelling despite wearing support hose. [place] like someone was punching her in back of her calves. Had to have the stockings taken off since was contributing to the pain. Eyes rolled in back of her head. Heavy Equipment Plumbing Supervisor drove her to the hospital in her own car to the hospital. PT saw her at home. HH nurse and aids. Still has pain in legs but better. Still not steady with walking around home. Less pain with getting down the two steps to garage. Not sure cause for the sudden onset of pain, unsteadiness and trouble with ambulation. PT will do evaluation 05/24 to see how she is doing. Was also wearing back brace. 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 Charlton) Cataracts, both eyes Coronary atherosclerosis of unspecified type of vessel, [place] or graft minimal plaque on cath 08/06/2006 DVT (deep venous thrombosis) ([facility]) 2010 Right leg OCTOBER 2009 NOT TREATED Dysmetabolic syndrome X Esophageal reflux Fibromyalgia better with Lyrica Floppy eyelid syndrome Hiatal hernia Large when seen on EGD 10/2010 at [facility] (Dr. 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 retrograde persistalsis of esphagus causing episode of emesis Spondylosis TMJ arthritis right Unspecified essential hypertension Unspecified hypothyroidism Current Outpatient Medications Medication Sig Artificial Tear, Hypromellose, (SYSTANE GEL) 0.3 % gel 1 Drop daily at bedtime. aspirin, enteric coated (ASPIRIN, ENTERIC COATED) 81 mg EC tablet Take 81 mg by mouth. budesonide (PULMICORT) 0.5 mg/2 mL nebulizer solution Use 0.5 mg via nebulizer once daily. amLODIPine (NORVASC) 2.5 mg tablet Take 1 tablet by mouth once daily. gabapentin (NEURONTIN) 100 mg capsule Take 3 capsules by mouth daily at bedtime for 180 days. cranberry fruit concentrate (AZO CRANBERRY) 250 mg chew Take by mouth. diazePAM (VALIUM) 5 mg tablet Take 1 tablet by mouth at bedtime as needed (vertigo or anxiety) for up to 180 days. levothyroxine (SYNTHROID) 88 mcg tablet Take 1 tablet by mouth once daily. Take on empty stomach. For Thyroid cholecalciferol, vitamin D3, 10 mcg (400 unit) cap Take 400 Units by mouth once daily. 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 DX: EDEMA 782.3, venous insuffiency 459.81 (Futuro therapeutic open heel and open toe if available) acetaminophen (TYLENOL) 325 mg tablet Take 650 mg by mouth every 6 hours as needed. Tylenol arthritis multivitamin ORAL tablet Take 1 tablet by mouth twice daily. levothyroxine (SYNTHROID) 88 mcg tablet Take 1 tablet by mouth once daily. Take on empty stomach. For Thyroid (Patient not taking: No sig reported) No current facility-administered medications for this visit. Review of Systems Objective BP 136/82 Pulse 83 Temp 37.1 C (98.7 F) Resp 18 Wt 88 kg (194 lb) SpO2 97% BMI 33.30 kg/m Physical Exam Constitutional: Appearance: Normal appearance. HENT: Head: Normocephalic. Eyes: Conjunctiva/sclera: Conjunctivae normal. Cardiovascular: Rate and Rhythm: Normal rate and regular rhythm. Heart sounds: Normal heart sounds. Comments: Right with more swelling than left; tender to palpation Pulmonary: Effort: Pulmonary effort is normal. Breath sounds: Normal breath sounds. Musculoskeletal: Right lower le+ Edema present. Left lower le+ Edema present. Skin: General: Skin is warm and dry. Neurological: General: No focal deficit present. Mental Status: She is alert and oriented to person, place, and time. Psychiatric: Mood and Affect: Mood normal. Behavior: Behavior normal. Thought Content: Thought content normal. Judgment: Judgment normal. Antalgic gait. Walks with cane . Has walker as well. Stands easily. Assessment and Plan Encounter Diagnosis ICD-10-CM 1. Pain in both lower extremities M79.604 M79.605 2. Bilateral leg edema R60.0 3. Imbalance R26.89 4. Cold sore B00.1 right lower lip Above issues addressed with patient. Patient involved in shared decision making for management of medical issues. History and medications reviewed. Epic updated as needed Refills and/or prescriptions taken care of and meds adjusted as indicated after reviewed history, exam and labs. Health Maintenance reviewed. Updated record and/or ordered tests as recorded. Encouraged on efforts at healthy diet and regular exercise and adequate sleep. Paulo Riojas MD documented in this encounter [facility] 05-09-2022 Miscellaneous Notes Attempted to contact Vnaesa [phone] but no answer. Left providers message and ask to call office with any questions or concerns. BP ok if had not taken medication. Check at next visit and let us know if not remaining in control. We do not have information about 05/05 visit for leg pain, would need records for review. OK for SW. Vanesa with [facility], OT calling with the followin)plan of care for pt will see 1 time a week for 1 week , then 2 times a week for 2 weeks for ADLs 2)Pt's blood pressure today 05-09-22 at 9 am was 144/94 with heart rate 76. Pt having no problems and took then took her blood pressure medication. (FYI: Pt was to ER on Friday because of Right leg pain. When pt is walking she says pain is 8 out of 10 and when resting is is 5 out of 10. This is also why they are seeing pt because she has problems walking and pain. 3)Requesting verbal order for social media editor to come in for emotional support.If calling with verbal order approval -today please call Vanesa [phone] okay to leave a message -calling with verbal order tomorrow call Shelia [phone] okay to leave a message. Erika Polk LPN documented in this encounter [facility] 05-07-2022 Miscellaneous Notes Noted, OK Norma with [facility], PT called with a plan of care for pt. They will be seenign pt 2 times a week for 3 weeks for lower extremities strengthening, gait and training, balance and endurance. No call back needed Erika Polk LPN documented in this encounter [facility] 04-26-2022 Note HNO ID: [id number] Author: Joya Rodriguez APRN.BEAUTY OPERATOR APPRENTICE Service: ? Author Type: Nurse Specialist Type: Progress Notes Filed: 04/26/2022 10:20 AM Note Text: SUBJECTIVE: MAMMOGRAM due on 07/21/2021 COLORECTAL CANCER SCREENING due on 03/02/2022 HPI Eileen Rojas is a 70 year old female. PMH significant for ACTIVE PROBLEM LIST Essential Hypertension Mixed Hyperlipidemia Coronary Atherosclerosis Irritable Bowel Syndrome Dysmetabolic Syndrome X Hypothyroidism Anemia 1) Laparotomy 2) Joann gastroplasty 3) Wedge the gastric fundus 4) Robbie fundoplication Obesity Dysphagia Sarmiento's Esophagus Without Dysplasia Oab (Overactive Bladder) Reversed Peristalsis Stress Incontinence Urge Incontinence Frequency of Urination Nocturia Kidney Stone Anxiety Marital Conflict Cephalalgia Ifg (Impaired Fasting Glucose) Lipoma of Right Upper Extremity [place], Subsequent Encounter Acute Pain of Left Shoulder Neck Pain, Chronic S/P Laparoscopic Cholecystectomy Cough Bilateral Leg Edema Posterior Tibial Tendon Dysfunction (Pttd) of Both Lower Extremities Pes Cavus of Left Foot Presents today for ER follow up visit. HPI excerpted from previous visit: Presents with abnormalities noted on her right hand and wrist. She reports surgery for ganglion cyst of the right third finger in the 1970s. She notes feeling firm mass in third finger for 3 to 6 months. No change in size. Notes that this finger occasionally gets stuck, trigger finger. She notes numbness of the first and second fingers of the right hand after repetitive use. Soft mass on the right wrist. Arthritis of the right thumb. Eileen Rojas called the office with report of left-sided facial swelling, no slurred speech no pain or redness in the area no injury. She had a history of TIA and reported that she had right facial swelling and slurred speech at the time of her previous TIA. She was referred to emergency department. She was seen at [facility] on April 24, 2022 with report of left-sided jaw swelling and neck swelling. She reported this started on the day of arrival. noted no change from her usual appearance per notes. Exam showed some tenderness at the mandible and submandibular lymphadenopathy. CBC was completed and showed slight elevation of white cell count. Unremarkable metabolic panel. CT neck with contrast showed no acute findings. Thought possible reaction to lisinopril /possible angioedema so it was discontinued and she was started on Norvasc 2.[address] report -scanned documents Today reports she has not yet started amlodipine. Pain at site:decreased Lymphadenopathy:no Vision changes: 2 weeks ago, to see opthalmologist but needs to reschedule,no recurrence Speech changes: no changes Memory changes:no changes reported Mobility changes: none reported TSH Date Value 02/15/2022 2.310 mIU/L 10/12/2021 1.750 mIU/L 01/13/2021 2.780 uU/mL 03/16/2020 3.460 uU/mL ) Review of Systems Constitutional: Negative. HENT: Negative. Musculoskeletal: Positive for arthralgias (jaw). Objective BP 126/82 Pulse 80 Resp 16 Wt 88 kg (194 lb) BMI 33.30 kg/m? Physical Exam Vitals and nursing note reviewed. Constitutional: Appearance: Normal appearance. HENT: Head: Normocephalic and atraumatic. Jaw: No tenderness. Eyes: Conjunctiva/sclera: Conjunctivae normal. Neck: Thyroid: No thyromegaly. Vascular: No JVD. Cardiovascular: Rate and Rhythm: Normal rate. Pulmonary: Effort: Pulmonary effort is normal. Lymphadenopathy: Cervical: Left cervical: No superficial, deep or posterior cervical adenopathy. Skin: General: Skin is warm and dry. Neurological: Mental Status: She is alert. ALLERGIES Allergen Reactions Ekg Patches [Other] Hives skin gets red and raw needs hypoalergetic patches also any patch used for testing Aggrenox [Aspirin-D* Other: See Comments Headache Bactrim [Sulfametho* dizzy, redness, face flushed Betadine [Povidone-* Rash Cetacaine [Butamben* Other: See Comments excessive mucous production Cigarettes [Other] Shortness of Breath Hard to breath/has a sensitivity not an allergy Codeine Intolerance Cortisone Shortness of Breath injection was given and swelled and had trouble breathing Depomedrol [Other] Swelling FACE SWELLED AFTER CORTISONE SHOT IN KNEE Detrol [Tolterodine* Intolerance HEAD ACHE ,DRY MOUTH Ditropan [Oxybutyni* Intolerance DIZZY,SUN SENSITIVE Latex Rash Lisinopril Intolerance mandibular pain, lymphadenopathy, possible angio edema per [facility] ER note 04/24/2022 Meclizine Swelling URINARY RETENTION,FACE FELT FUNNY Metoprolol GI Upset headache.itching.hives. Myrbetriq [Mirabegr* Other: See Comments elevated BP Paper Tape [Other] Rash Prevacid [Lansopraz* GI Upset GAS,BURPING HEADACHE Prilosec [Omeprazol* Diarrhea Tizanidine Other: See Comments increas (more content not included)... [facility] 04-26-2022 Instructions Joya Rodriguez APRN.SANDRA - 04/26/2022 9:57 AM EST Stop taking lisinopril Start taking amlodipine 2.5 mg daily documented in this encounter [facility] 04-26-2022 History of Present illness Narrative SUBJECTIVE: MAMMOGRAM due on 07/21/2021 COLORECTAL CANCER SCREENING due on 03/02/2022 HPI Eileen Rojas is a 70 year old female. PMH significant for ACTIVE PROBLEM LIST Essential Hypertension Mixed Hyperlipidemia Coronary Atherosclerosis Irritable Bowel Syndrome Dysmetabolic Syndrome X Hypothyroidism Anemia 1) Laparotomy 2) Joann gastroplasty 3) Wedge the gastric fundus 4) Robbie fundoplication Obesity Dysphagia Sarmiento's Esophagus Without Dysplasia Oab (Overactive Bladder) Reversed Peristalsis Stress Incontinence Urge Incontinence Frequency of Urination Nocturia Kidney Stone Anxiety Marital Conflict Cephalalgia Ifg (Impaired Fasting Glucose) Lipoma of Right Upper Extremity [place], Subsequent Encounter Acute Pain of Left Shoulder Neck Pain, Chronic S/P Laparoscopic Cholecystectomy Cough Bilateral Leg Edema Posterior Tibial Tendon Dysfunction (Pttd) of Both Lower Extremities Pes Cavus of Left Foot Presents today for ER follow up visit. HPI excerpted from previous visit: Presents with abnormalities noted on her right hand and wrist. She reports surgery for ganglion cyst of the right third finger in the . She notes feeling firm mass in third finger for 3 to 6 months. No change in size. Notes that this finger occasionally gets stuck, trigger finger. She notes numbness of the first and second fingers of the right hand after repetitive use. Soft mass on the right wrist. Arthritis of the right thumb. Eileen Rojas called the office with report of left-sided facial swelling, no slurred speech no pain or redness in the area no injury. She had a history of TIA and reported that she had right facial swelling and slurred speech at the time of her previous TIA. She was referred to emergency department. She was seen at [facility] on April 24, 2022 with report of left-sided jaw swelling and neck swelling. She reported this started on the day of arrival. noted no change from her usual appearance per notes. Exam showed some tenderness at the mandible and submandibular lymphadenopathy. CBC was completed and showed slight elevation of white cell count. Unremarkable metabolic panel. CT neck with contrast showed no acute findings. Thought possible reaction to lisinopril /possible angioedema so it was discontinued and she was started on Norvasc 2.[address] report -scanned documents Today reports she has not yet started amlodipine. Pain at site:decreased Lymphadenopathy:no Vision changes: 2 weeks ago, to see opthalmologist but needs to reschedule,no recurrence Speech changes: no changes Memory changes:no changes reported Mobility changes: none reported TSH Date Value 02/15/2022 2.310 mIU/L 10/12/2021 1.750 mIU/L 01/13/2021 2.780 uU/mL 03/16/2020 3.460 uU/mL ) Review of Systems Constitutional: Negative. HENT: Negative. Musculoskeletal: Positive for arthralgias (jaw). Objective BP 126/82 Pulse 80 Resp 16 Wt 88 kg (194 lb) BMI 33.30 kg/m Physical Exam Vitals and nursing note reviewed. Constitutional: Appearance: Normal appearance. HENT: Head: Normocephalic and atraumatic. Jaw: No tenderness. Eyes: Conjunctiva/sclera: Conjunctivae normal. Neck: Thyroid: No thyromegaly. Vascular: No JVD. Cardiovascular: Rate and Rhythm: Normal rate. Pulmonary: Effort: Pulmonary effort is normal. Lymphadenopathy: Cervical: Left cervical: No superficial, deep or posterior cervical adenopathy. Skin: General: Skin is warm and dry. Neurological: Mental Status: She is alert. ALLERGIES Allergen Reactions Ekg Patches [Other] Hives skin gets red and raw needs hypoalergetic patches also any patch used for testing Aggrenox [Aspirin-D* Other: See Comments Headache Bactrim [Sulfametho* dizzy, redness, face flushed Betadine [Povidone-* Rash Cetacaine [Butamben* Other: See Comments excessive mucous production Cigarettes [Other] Shortness of Breath Hard to breath/has a sensitivity not an allergy Codeine Intolerance Cortisone Shortness of Breath injection was given and swelled and had trouble breathing Depomedrol [Other] Swelling FACE SWELLED AFTER CORTISONE SHOT IN KNEE Detrol [Tolterodine* Intolerance HEAD ACHE ,DRY MOUTH Ditropan [Oxybutyni* Intolerance DIZZY,SUN SENSITIVE Latex Rash Lisinopril Intolerance mandibular pain, lymphadenopathy, possible angio edema per [facility] ER note 04/24/2022 Meclizine Swelling URINARY RETENTION,FACE FELT FUNNY Metoprolol GI Upset headache.itching.hives. Myrbetriq [Mirabegr* Other: See Comments elevated BP Paper Tape [Other] Rash Prevacid [Lansopraz* GI Upset GAS,BURPING HEADACHE Prilosec [Omeprazol* Diarrhea Tizanidine Other: See Comments increased pain Zelnorm [Tegaserod * Hives Artificial Tear, Hypromellose, (SYSTANE GEL) 0.3 % gel 1 Drop daily at bedtime. amLODIPine (NORVASC) 2.5 mg tablet Take by mouth. aspirin, enteric coated (ASPIRIN, ENTERIC COATED) 81 mg EC tablet Take 81 mg by mouth. budesonide (PULMICORT) 0.5 mg/2 mL nebulizer solution Use 0.5 mg via nebulizer once daily. gabapentin (NEURONTIN) 100 mg capsule Take 3 capsules by mouth daily at bedtime for 180 days. cranberry fruit concentrate (AZO CRANBERRY) 250 mg chew Take by mouth. diazePAM (VALIUM) 5 mg tablet Take 1 tablet by mouth at bedtime as needed (vertigo or anxiety) for up to 180 days. levothyroxine (SYNTHROID) 88 mcg tablet Take 1 tablet by mouth once daily. Take on empty stomach. For Thyroid cholecalciferol, vitamin D3, 10 mcg (400 unit) cap Take 400 Units by mouth once daily. 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 DX: EDEMA 782.3, venous insuffiency 459.81 (Futuro therapeutic open heel and open toe if available) acetaminophen (TYLENOL) 325 mg tablet Take 650 mg by mouth every 6 hours as needed. Tylenol arthritis multivitamin ORAL tablet Take 1 tablet by mouth twice daily. levothyroxine (SYNTHROID) 88 mcg tablet Take 1 tablet by mouth once daily. Take on empty stomach. 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 Charlton) Cataracts, both eyes Coronary atherosclerosis of unspecified type of vessel, [place] or graft minimal plaque on cath 08/06/2006 DVT (deep venous thrombosis) ([facility]) 2010 Right leg OCTOBER 2009 NOT TREATED Dysmetabolic syndrome X Esophageal reflux Fibromyalgia better with Lyrica Floppy eyelid syndrome Hiatal hernia Large when seen on EGD 10/2010 at [facility] (Dr. 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 retrograde persistalsis of esphagus causing episode of emesis Spondylosis TMJ arthritis right Unspecified essential hypertension Unspecified hypothyroidism Social History Tobacco Use Smoking status: Never Smokeless tobacco: Never Vaping Use Vaping Use: Never used Substance Use Topics Alcohol use: Yes Alcohol/week: 10.0 standard drinks Comment: occasionally rare Drug use: No ASSESSMENT/PLAN: 1. Submandibular lymphadenopathy - ICD9: 785.6, ICD10: R59.0 (primary diagnosis) Resolved 2. Primary hypertension - ICD9: 401.9, ICD10: I10 controlled Stop lisinopril Start amlodipine 2.5 mg daily DASH diet 3. Throat pain - ICD9: 784.1, ICD10: R07.0 Resolving neck pain and swelling Joya Rodriguez APRN.BEAUTY OPERATOR APPRENTICE Medical Decision Making: Problems: Low: Acute, uncomplicated illness or injury Data: Independent interpretation of test from other physician/QHCP Risk: Moderate: Drug management Medical Decision Making Level: 4 - Moderate documented in this encounter [facility] 04-24-2022 Miscellaneous Notes Noted, agree Patient call in for left side of face swollen. No slurred speech noted. Patient has no pain or redness to area. Patient did not do anything to area. Nurse Triage assessment completed with protocol recommending for disposition of Go to ED now. Care advice reviewed with patient, patient stated understanding. Patient will history of TIA. Last times patient had TIA she had right facial swelling and slurred speech. Reason for Disposition Taking an LUIS DANIEL Inhibitor medication (e.g., benazepril/LOTENSIN, captopril/CAPOTEN, enalapril/VASOTEC, lisinopril/ZESTRIL) Answer Assessment - Initial Assessment Questions 1. ONSET: Just noticed it this morning 2. LOCATION: Left Side is swollen 3. SEVERITY: Swollen an inch or two 4. ITCHING: Denies itching 5. PAIN: Denies Pain 6. FEVER: Denies 7. CAUSE: Unsure 8. RECURRENT SYMPTOM: Yes, on the right side when she had a TIA 9. OTHER SYMPTOMS: Denies Protocols used: Face [id number] documented in this encounter [facility] 02-25-2022 Miscellaneous Notes See my chart message. Patient calling and asking about the urine culture. Patient noticed that it was abnormal. Patient pharmacy is [facility] if provider needs to send medication. Patient continues to have burning with urination. Can send response through My Chart. Please review and advise, Nataly Krueger RN documented in this encounter [facility] 02-19-2022 Miscellaneous Notes PDMP website checked and validated. All prescriptions have been APPROPRIATELY filled. No suspicious activity was identified. 02/19/2022 by Promise Fay APRN.DARYL Patient has been identified by name and date of : Yes Patient phones for refill(s): Requested Prescriptions Pending Prescriptions Disp Refills diazePAM (VALIUM) 5 mg tablet 30 tablet 5 Sig: Take 1 tablet by mouth at bedtime as needed (vertigo or anxiety) for up to 180 days. Date of last office visit in primary care: 01/24/2022 6 month follow-up: 02/22/2022 Last 2 Encounter Wt Readings: Date: Wt: 08/23/2021 87.7 kg (193 lb 6.4 oz) 01/19/2021 88.5 kg (195 lb) Previous labs/tests for medication: Not applicable Please advise. Thank you. Arleen Hamm LPN documented in this encounter [facility] 11-02-2021 Miscellaneous Notes Okayed Patient has been identified by name and date of : Yes Patient phones for refill(s): Requested Prescriptions Pending Prescriptions Disp Refills gabapentin (NEURONTIN) 100 mg capsule 270 capsule 1 Sig: Take 3 capsules by mouth daily at bedtime for 180 days. levothyroxine (SYNTHROID) 88 mcg tablet 90 tablet 1 Sig: Take 1 tablet by mouth once daily. Take on empty stomach. For Thyroid Date of last office visit in primary care: 08/23/2021 No future appt scheduled. Last 2 Encounter Wt Readings: Date: Wt: 08/23/2021 87.7 kg (193 lb 6.4 oz) 01/19/2021 88.5 kg (195 lb) Previous labs/tests for medication: Thyroid: TSH Date Value 10/12/2021 1.750 mIU/L 01/13/2021 2.780 uU/mL Please advise. Thank you. Arleen Hamm LPN Patient has been identified by name and date of : Yes Requested Prescriptions Pending Prescriptions Disp Refills gabapentin (NEURONTIN) 100 mg capsule 270 capsule 1 Sig: Take 3 capsules by mouth daily at bedtime for 180 days. levothyroxine (SYNTHROID) 88 mcg tablet 90 tablet 0 Sig: Take 1 tablet by mouth once daily. Take on empty stomach. For Thyroid Patient asking for additional refills on both medications. RX INSTRUCTIONS: Patient aware RX will be sent to pharmacy. No need to notify patient. Charo Salazar documented in this encounter [facility] 10-04-2021 Miscellaneous Notes Providers message was sent to patient on [employer] as requested. she can check thyroid Patient states she just completed prednisone that was prescribed to her from an ER visit. She plans to get thyroid labs completed and is asking if the prednisone will effect these labs or if she should wait a certain amount of time before getting then drawn. Patient asking to be advised using My Chart. Thank you. documented in this encounter [facility] 09-03-2021 Miscellaneous Notes Pt's daughter notified of new rx. Jessica Saini LPN Called and left a voicemail for the Patient's daughter to call back and ask for a nurse to receive the providers message. Hillary Garcia RN The following approved medication requests have been transmitted electronically. Signed Prescriptions Disp Refills levothyroxine (SYNTHROID) 88 mcg tablet 90 tablet 0 Sig: Take 1 tablet by mouth once daily. Take on empty stomach. For Thyroid ANA PAULA: No Authorizing Provider: PAULO RIOJAS MD Eileen Rojas is calling Paulo Riojas MD office today. Patient lost her entire bottle of Levothyroxine 88 mcg. She called her mail order pharmacy and was instructed to have her provider send a new script to her local pharmacy and she would need to pay out of pocket. Please send [facility] supply [facility]rox[facility] (SYNTHROID) 88 mcg tablet 90 tablet 3 08/23/2021 Sig: Take 1 tablet by mouth once daily. Take on empty stomach. For Thyroid Sent to pharmacy as: levothyroxine (SYNTHROID) 88 mcg tablet Class: Normal documented in this encounter [facility] 08-23-2021 History of Present illness Narrative This note was created using [employer]. Subjective Eileen Rojas is a 71 year old female. Patient presents with: F/U 6 months SUBJECTIVE: Eileen Rojas is a 71 year old year old lady here today for 6 month follow up appointment for review of medical conditions. Genetic stomach cancer through her . Noted that had hip surgery. She has strained her back taking care of him--trying to limit straining. Waiting to get her knee done. Gets dizzy after about 20 minutes Fell at work after had COVID. That has been about a year ago. Noted issues with dysphagia. Hurts in upper mid-abdomen. Bloats since had GB out. Considering seeing Dr. Casper. If drinks Boost, does not have to pee as much. Not able to go to bathroom on as needed basis when working. if drinks when not stressed, does not regurg. Noted bladder irritability and if coughs, has to go. Gets dizzy if bending and working outside. Noted that daughter is now her surrogate decision-maker instead of and son due to health issues. Will get HCDPOA and LW updated. 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 Charlton) Cataracts, both eyes Coronary atherosclerosis of unspecified type of vessel, [place] or graft minimal plaque on cath 08/06/2006 DVT (deep venous thrombosis) (HCC) 2010 Right leg OCTOBER 2009 NOT TREATED Dysmetabolic syndrome X Esophageal reflux Fibromyalgia better with Lyrica Floppy eyelid syndrome Hiatal hernia Large when seen on EGD 10/2010 at [facility] (Dr. 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 retrograde persistalsis of esphagus causing episode of emesis Spondylosis TMJ arthritis right Unspecified essential hypertension Unspecified hypothyroidism Current Outpatient Medications Medication Sig carboxymethylcell/hypromellose (GENTEAL GEL OPHTHALMIC) Use in both eyes daily at bedtime. gabapentin (NEURONTIN) 100 mg capsule Take 3 capsules by mouth daily at bedtime for 180 days. lisinopril (ZESTRIL, PRINIVIL) 10 mg tablet Take 1 tablet by mouth once daily. levothyroxine (SYNTHROID) 75 mcg tablet Take 1 tablet by mouth once daily. Take on empty stomach. For Thyroid cholecalciferol, vitamin D3, (VITAMIN D-3) 10 mcg (400 unit) cap Take 400 Units by mouth once daily. [facility] as directed. white petrolatum 94% - mineral oil 3% 94-3 % [facility]amin[facility] (TYLENOL) 325 mg tablet Take 650 mg by mouth every 6 hours as needed. Tylenol arthritis COMPOUNDED PRESCRIPTION [place] Antiseptic Powder (carbolic acid; zinc oxide) as needed per Dr. Arleen Burdick multivitamin ORAL tablet Take 1 tablet by mouth twice daily. diazePAM (VALIUM) 5 mg tablet Take 1 tablet by mouth at bedtime as needed (vertigo or anxiety) for up to 180 days. gabapentin (NEURONTIN) 100 mg capsule Take 3 capsules by mouth daily at bedtime for 14 days. fluticasone-vilanterol (BREO ELLIPTA) 100-25 mcg/dose inhaler Inhale 1 Inhalation as instructed once daily. Dr. Park (Patient not taking: Reported on 07/11/2020 ) albuterol HFA (PROVENTIL HFA, VENTOLIN HFA) 90 mcg/actuation inhaler INHALE 2 PUFFS BY MOUTH EVERY 4 HOURS NEEDED FOR SHORTNESS OF BREATH OR WHEEZING (Patient not taking: Reported on 07/11/2020) hyoscyamine (LEVSIN) 0.125 mg tablet (Patient not taking: Reported on 11/06/2020 ) lubiprostone (AMITIZA) 8 mcg capsule Take 8 mcg by mouth daily with breakfast. (Patient not taking: Reported on 07/11/2020 ) esomeprazole (NEXIUM 24HR) 20 mg capsule Take 1 capsule by mouth once daily. Needs Namebrand over the counter, not generic. 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 DX: EDEMA 782.3, venous insuffiency 459.81 (Futuro therapeutic open heel and open toe if available) No current facility-administered medications for this visit. Review of Systems Objective BP 126/74 Pulse 75 Resp 16 Wt 87.7 kg (193 lb 6.4 oz) SpO2 99% BMI 33.20 kg/m Physical Exam Constitutional: Appearance: Normal appearance. HENT: Head: Normocephalic. Eyes: Conjunctiva/sclera: Conjunctivae normal. Cardiovascular: Rate and Rhythm: Normal rate and regular rhythm. Heart sounds: Normal heart sounds. Pulmonary: Effort: Pulmonary effort is normal. Breath sounds: Normal breath sounds. Skin: General: Skin is warm and dry. Neurological: General: No focal deficit present. Mental Status: She is alert and oriented to person, place, and time. Psychiatric: Mood and Affect: Mood normal. Behavior: Behavior normal. Thought Content: Thought content normal. Judgment: Judgment normal. Lab was fasting but had gatorade night before. Component Latest Ref Rng & Units 07/08/2020 01/13/2021 08/04/2021 Protein, Total 6.3 - 8.0 g/dL 7.2 6.8 Albumin 3.9 - 4.9 g/dL 4.1 4.0 Calcium 8.5 - 10.2 mg/dL 9.7 9.6 Bilirubin, Total 0.2 - 1.3 mg/dL 0.7 0.4 Alkaline Phosphatase 34 - 123 U/L 80 70 AST 13 - 35 U/L 24 21 Glucose 74 - 99 mg/dL 111 (H) 130 (H) BUN 7 - 21 mg/dL 15 14 Creatinine 0.58 - 0.96 mg/dL 0.76 0.76 Sodium 136 - 144 mmol/L 141 140 Potassium 3.7 - 5.1 mmol/L 4.2 4.1 Chloride 97 - 105 mmol/L 103 103 CO2 22 - 30 mmol/L 28 27 Anion Gap 9 - 18 mmol/L 10 10 ALT 7 - 38 U/L 22 21 eGFR- >60 eGFR-All Other Races . >60 eGFR >=60 mL/min/1.73m 84 WBC 3.70 - 11.00 k/uL 8.53 7.96 RBC 3.90 - 5.20 m/uL 4.74 4.74 Hemoglobin 11.5 - 15.5 g/dL 15.0 14.7 Hematocrit 36.0 - 46.0 % 46.3 (H) 45.7 MCV 80.0 - 100.0 fL 97.7 96.4 MCH 26.0 - 34.0 pg 31.6 31.0 MCHC 30.5 - 36.0 g/dL 32.4 32.2 RDW-CV 11.5 - 15.0 % 13.3 13.2 Platelet Count 150 - 400 k/uL 309 321 MPV 9.0 - 12.7 fL 10.4 10.5 Absolute nRBC <0.01 k/uL <0.01 <0.01 Cholesterol, Total <200 mg/dL 177 172 Triglyceride <150 mg/dL 85 95 HDL Cholesterol >39 mg/dL 51 50 LDL Cholesterol <100 mg/dL 109 (H) 103 (H) Non HDL Cholesterol <130 mg/dL 126 122 Fasting Time hrs 12 12 VLDL Cholesterol <30 mg/dL 17 19 TC:HDL Ratio <5.10 3.47 3.44 LDL:HDL Ratio <2.54 2.14 2.06 Hemoglobin A1C 4.3 - 5.6 % 6.1 (H) 6.3 (H) Estimated Average Glucose mg/dL 128 134 Vitamin D 25 Hydroxy 31.0 - 80.0 ng/mL 46.3 57.6 TSH 0.270 - 4.200 mIU/L 2.780 4.290 (H) Free T4 0.9 - 1.7 ng/dL 1.3 Free T3 2.3 - 4.1 pg/mL 2.9 Assessment and Plan ASSESSMENT/PLAN: 1. Acquired hypothyroidism - ICD9: 244.9, ICD10: E03.9 (primary diagnosis) - Increase Synthroid dose to 0.088 mg Recheck labs in 2 months - TSH BLD - T4 FREE/FREE THYROX - T3 FREE BLD 2. IFG (impaired fasting glucose) - ICD9: 790.21, ICD10: R73.01 Needs to keep working on diet and exercise with lifestyle changes for effective weight loss as well as prevention of DM, and control of BP and lipids. Glucose was over 126 this time. HgA1C still <6.5 - HGB A1C - COMP METABOLIC PANEL 3. Vitamin D deficiency - ICD9: 268.9, ICD10: E55.9 - VITAMIN D 25 HYDROXY 4. Essential hypertension - ICD9: 401.9, ICD10: I10 - good control - Continue current medication(s) - Recommended regular aerobic exercise. - Recommend home blood pressure monitoring, to bring results in on next visit - Goal of BP <130/80 - COMP METABOLIC PANEL - CBC 5. Vertigo - ICD9: 780.4, ICD10: R42 Diazepam prn as discussed 6. OAB (overactive bladder) - ICD9: 596.51, ICD10: N32.81 Stay hydrated. 7. Dysphagia, unspecified type - ICD9: 787.20, ICD10: R13.10 Continue efforts at staying hydrated. 8. Anxiety Doing fine on Diazepam. Also used for vertigo. Paulo Riojas MD documented in this encounter [facility] documented as of this encounter (statuses as of 08/27/2021) [facility] History of Past illness Narrative* Problem Noted Date Resolved Date Discharge planning 06/26/2011 09/03/2011 Overview: 06/30/2011 Pt is and lives in [place], [place] At this time, we anticipate that the patient will be discharged home. Patient is in SNF after suffering a stroke. Patient requests home care for a home visit. Plan: - Per social work: [employer] in [employer] can assist. SW provided contact info for this company to call when pt returns home if needed - Social work/Case management aware of patients request for homecare . Other acute postoperative pain 06/26/2011 0 09/03/2011 Overview: 06/30/2011 Pain controlled with oral pain medication: Oxycodone and Lidoderm patches Plan: - continue present pain medication at home - patient wants lidoderm patch at home. . DVT (deep venous thrombosis) 11/02/2009 Overview: 06/30/2011 PMHX DVT, not treated. Last US of LE on 06-21-2011 negative for DVT Plan: - progressive ambulation . . Acute, but ill-defined, cerebrovascular disease 09/28/2005 12/28/2016 Overview: 06/30/2011 TIA x2 2005, 2008. 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 1) Laparotomy 2) Joann almita roplasty 3) Wedge the gastric fundus 4) Robbie fundoplication 06/30/2011 Overview: 06/29/2011 - No c/o reflux post op. 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 documented as of this encounter (statuses as of 09/03/2021) [facility] History of Past illness Narrative* Problem Noted Date Resolved Date Discharge planning 06/26/2011 09/03/2011 Overview: 06/30/2011 Pt is and lives in [place], [place] At this time, we anticipate that the patient will be discharged home. Patient is in SNF after suffering a stroke. Patient requests home care for a home visit. Plan: - Per social work: [facility] in [facility] can assist. SW provided contact info for this company to call when pt returns home if needed - Social work/Case management aware of patients request for homecare . Other acute postoperative pain 06/26/2011 0 09/03/2011 Overview: 06/30/2011 Pain controlled with oral pain medication: Oxycodone and Lidoderm patches Plan: - continue present pain medication at home - patient wants lidoderm patch at home. . DVT (deep venous thrombosis) 11/02/2009 Overview: 06/30/2011 PMHX DVT, not treated. Last US of LE on 06-21-2011 negative for DVT Plan: - progressive ambulation . . Acute, but ill-defined, cerebrovascular disease 09/28/2005 12/28/2016 Overview: 06/30/2011 TIA x2 2005, 2008. 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 1) Laparotomy 2) Joann almita roplasty 3) Wedge the gastric fundus 4) Robbie fundoplication 06/30/2011 Overview: 06/29/2011 - No c/o reflux post op. 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 documented as of this encounter (statuses as of 10/04/2021) [facility] History of Past illness Narrative* Problem Noted Date Resolved Date Discharge planning 06/26/2011 09/03/2011 Overview: 06/30/2011 Pt is and lives in [place], [place] At this time, we anticipate that the patient will be discharged home. Patient is in SNF after suffering a stroke. Patient requests home care for a home visit. Plan: - Per social work: [facility] in [facility] can assist. SW provided contact info for this company to call when pt returns home if needed - Social work/Case management aware of patients request for homecare . Other acute postoperative pain 06/26/2011 0 09/03/2011 Overview: 06/30/2011 Pain controlled with oral pain medication: Oxycodone and Lidoderm patches Plan: - continue present pain medication at home - patient wants lidoderm patch at home. . DVT (deep venous thrombosis) 11/02/2009 Overview: 06/30/2011 PMHX DVT, not treated. Last US of LE on 06-21-2011 negative for DVT Plan: - progressive ambulation . . Acute, but ill-defined, cerebrovascular disease 09/28/2005 12/28/2016 Overview: 06/30/2011 TIA x2 2005, 2008. 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 1) Laparotomy 2) Joann almita roplasty 3) Wedge the gastric fundus 4) Robbie fundoplication 06/30/2011 Overview: 06/29/2011 - No c/o reflux post op. 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 documented as of this encounter (statuses as of 10/20/2021) [facility] History of Past illness Narrative* Problem Noted Date Resolved Date Discharge planning 06/26/2011 09/03/2011 Overview: 06/30/2011 Pt is and lives in [place], [place] At this time, we anticipate that the patient will be discharged home. Patient is in SNF after suffering a stroke. Patient requests home care for a home visit. Plan: - Per social work: [facility] in [facility] can assist. SW provided contact info for this company to call when pt returns home if needed - Social work/Case management aware of patients request for homecare . Other acute postoperative pain 06/26/2011 0 09/03/2011 Overview: 06/30/2011 Pain controlled with oral pain medication: Oxycodone and Lidoderm patches Plan: - continue present pain medication at home - patient wants lidoderm patch at home. . DVT (deep venous thrombosis) 11/02/2009 Overview: 06/30/2011 PMHX DVT, not treated. Last US of LE on 06-21-2011 negative for DVT Plan: - progressive ambulation . . Acute, but ill-defined, cerebrovascular disease 09/28/2005 12/28/2016 Overview: 06/30/2011 TIA x2 2005, 2008. 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 1) Laparotomy 2) Joann almita roplasty 3) Wedge the gastric fundus 4) Robbie fundoplication 06/30/2011 Overview: 06/29/2011 - No c/o reflux post op. 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 documented as of this encounter (statuses as of 11/02/2021) [facility] History of Past illness Narrative* Problem Noted Date Resolved Date Discharge planning 06/26/2011 09/03/2011 Overview: 06/30/2011 Pt is and lives in [place], [place] At this time, we anticipate that the patient will be discharged home. Patient is in SNF after suffering a stroke. Patient requests home care for a home visit. Plan: - Per social work: [facility] in [facility] can assist. SW provided contact info for this company to call when pt returns home if needed - Social work/Case management aware of patients request for homecare . Other acute postoperative pain 06/26/2011 0 09/03/2011 Overview: 06/30/2011 Pain controlled with oral pain medication: Oxycodone and Lidoderm patches Plan: - continue present pain medication at home - patient wants lidoderm patch at home. . DVT (deep venous thrombosis) 11/02/2009 Overview: 06/30/2011 PMHX DVT, not treated. Last US of LE on 06-21-2011 negative for DVT Plan: - progressive ambulation . . Acute, but ill-defined, cerebrovascular disease 09/28/2005 12/28/2016 Overview: 06/30/2011 TIA x2 2005, 2008. 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 1) Laparotomy 2) Joann almita roplasty 3) Wedge the gastric fundus 4) Robbie fundoplication 06/30/2011 Overview: 06/29/2011 - No c/o reflux post op. 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 documented as of this encounter (statuses as of 12/07/2021) [facility] History of Past illness Narrative* Problem Noted Date Resolved Date Discharge planning 06/26/2011 09/03/2011 Overview: 06/30/2011 Pt is and lives in [place], [place] At this time, we anticipate that the patient will be discharged home. Patient is in SNF after suffering a stroke. Patient requests home care for a home visit. Plan: - Per social work: [facility] in [facility] can assist. SW provided contact info for this company to call when pt returns home if needed - Social work/Case management aware of patients request for homecare . Other acute postoperative pain 06/26/2011 0 09/03/2011 Overview: 06/30/2011 Pain controlled with oral pain medication: Oxycodone and Lidoderm patches Plan: - continue present pain medication at home - patient wants lidoderm patch at home. . DVT (deep venous thrombosis) 11/02/2009 Overview: 06/30/2011 PMHX DVT, not treated. Last US of LE on 06-21-2011 negative for DVT Plan: - progressive ambulation . . Acute, but ill-defined, cerebrovascular disease 09/28/2005 12/28/2016 Overview: 06/30/2011 TIA x2 2005, 2008. 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 1) Laparotomy 2) Joann almita roplasty 3) Wedge the gastric fundus 4) Robbie fundoplication 06/30/2011 Overview: 06/29/2011 - No c/o reflux post op. 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 documented as of this encounter (statuses as of 02/19/2022) [facility] History of Past illness Narrative* Problem Noted Date Resolved Date Discharge planning 06/26/2011 09/03/2011 Overview: 06/30/2011 Pt is and lives in [place], [place] At this time, we anticipate that the patient will be discharged home. Patient is in SNF after suffering a stroke. Patient requests home care for a home visit. Plan: - Per social work: [facility] in [facility] can assist. SW provided contact info for this [employer] to call when pt returns home if needed - Social work/Case management aware of patients request for homecare . Other acute postoperative pain 06/26/2011 0 09/03/2011 Overview: 06/30/2011 Pain controlled with oral pain medication: Oxycodone and Lidoderm patches Plan: - continue present pain medication at home - patient wants lidoderm patch at home. . DVT (deep venous thrombosis) 11/02/2009 Overview: 06/30/2011 PMHX DVT, not treated. Last US of LE on 06-21-2011 negative for DVT Plan: - progressive ambulation . . Acute, but ill-defined, cerebrovascular disease 09/28/2005 12/28/2016 Overview: 06/30/2011 TIA x2 2005, 2008. 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 1) Laparotomy 2) Joann almita roplasty 3) Wedge the gastric fundus 4) Robbie fundoplication 06/30/2011 Overview: 06/29/2011 - No c/o reflux post op. 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 documented as of this encounter (statuses as of 02/25/2022) [facility]-2012 History of Past illness Narrative* Problem Noted Date Resolved Date Discharge planning 06/26/2011 09/03/2011 Overview: 06/30/2011 Pt is and lives in [place], [place] At this time, we anticipate that the patient will be discharged home. Patient is in SNF after suffering a stroke. Patient requests home care for a home visit. Plan: - Per social work: [facility] in [facility] can assist. SW provided contact info for this company to call when pt returns home if needed - Social work/Case management aware of patients request for homecare . Other acute postoperative pain 06/26/2011 0 09/03/2011 Overview: 06/30/2011 Pain controlled with oral pain medication: Oxycodone and Lidoderm patches Plan: - continue present pain medication at home - patient wants lidoderm patch at home. . DVT (deep venous thrombosis) 11/02/2009 Overview: 06/30/2011 PMHX DVT, not treated. Last US of LE on 06-21-2011 negative for DVT Plan: - progressive ambulation . . Acute, but ill-defined, cerebrovascular disease 09/28/2005 12/28/2016 Overview: 06/30/2011 TIA x2 2005, 2008. 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 1) Laparotomy 2) Joann almita roplasty 3) Wedge the gastric fundus 4) Robbie fundoplication 06/30/2011 Overview: 06/29/2011 - No c/o reflux post op. 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 documented as of this encounter (statuses as of 03/21/2022) [facility]2012 History of Past illness Narrative* Problem Noted Date Resolved Date Discharge planning 06/26/2011 09/03/2011 Overview: 06/30/2011 Pt is and lives in [place], [place] At this time, we anticipate that the patient will be discharged home. Patient is in SNF after suffering a stroke. Patient requests home care for a home visit. Plan: - Per social work: [facility] in [place] can assist. SW provided contact info for this [employer] to call when pt returns home if needed - Social work/Case management aware of patients request for homecare . Other acute postoperative pain 06/26/2011 0 09/03/2011 Overview: 06/30/2011 Pain controlled with oral pain medication: Oxycodone and Lidoderm patches Plan: - continue present pain medication at home - patient wants lidoderm patch at home. . DVT (deep venous thrombosis) 11/02/2009 Overview: 06/30/2011 PMHX DVT, not treated. Last US of LE on 06-21-2011 negative for DVT Plan: - progressive ambulation . . Acute, but ill-defined, cerebrovascular disease 09/28/2005 12/28/2016 Overview: 06/30/2011 TIA x2 2005, 2008. 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 1) Laparotomy 2) Joann almita roplasty 3) Wedge the gastric fundus 4) Robbie fundoplication 06/30/2011 Overview: 06/29/2011 - No c/o reflux post op. 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 documented as of this encounter (statuses as of 04/25/2022) [facility] History of Past illness Narrative* Problem Noted Date Resolved Date Discharge planning 06/26/2011 09/03/2011 Overview: 06/30/2011 Pt is and lives in [place], [place] At this time, we anticipate that the patient will be discharged home. Patient is in SNF after suffering a stroke. Patient requests home care for a home visit. Plan: - Per social work: [facility] in [facility] can assist. SW provided contact info for this [employer] to call when pt returns home if needed - Social work/Case management aware of patients request for homecare . Other acute postoperative pain 06/26/2011 0 09/03/2011 Overview: 06/30/2011 Pain controlled with oral pain medication: Oxycodone and Lidoderm patches Plan: - continue present pain medication at home - patient wants lidoderm patch at home. . DVT (deep venous thrombosis) 11/02/2009 Overview: 06/30/2011 PMHX DVT, not treated. Last US of LE on 06-21-2011 negative for DVT Plan: - progressive ambulation . . Acute, but ill-defined, cerebrovascular disease 09/28/2005 12/28/2016 Overview: 06/30/2011 TIA x2 2005, 2008. 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 1) Laparotomy 2) Joann almita roplasty 3) Wedge the gastric fundus 4) Robbie fundoplication 06/30/2011 Overview: 06/29/2011 - No c/o reflux post op. 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 documented as of this encounter (statuses as of 04/26/2022) [facility] History of Past illness Narrative* Problem Noted Date Resolved Date Discharge planning 06/26/2011 09/03/2011 Overview: 06/30/2011 Pt is and lives in [place], [place] At this time, we anticipate that the patient will be discharged home. Patient is in SNF after suffering a stroke. Patient requests home care for a home visit. Plan: - Per social work: [facility] in [place] can assist. SW provided contact info for this company to call when pt returns home if needed - Social work/Case management aware of patients request for homecare . Other acute postoperative pain 06/26/2011 0 09/03/2011 Overview: 06/30/2011 Pain controlled with oral pain medication: Oxycodone and Lidoderm patches Plan: - continue present pain medication at home - patient wants lidoderm patch at home. . DVT (deep venous thrombosis) 11/02/2009 Overview: 06/30/2011 PMHX DVT, not treated. Last US of LE on 06-21-2011 negative for DVT Plan: - progressive ambulation . . Acute, but ill-defined, cerebrovascular disease 09/28/2005 12/28/2016 Overview: 06/30/2011 TIA x2 2005, 2008. 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 1) Laparotomy 2) Joann almita roplasty 3) Wedge the gastric fundus 4) Robbie fundoplication 06/30/2011 Overview: 06/29/2011 - No c/o reflux post op. 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 documented as of this encounter (statuses as of 05/08/2022) [facility] History of Past illness Narrative* Problem Noted Date Resolved Date Discharge planning 06/26/2011 09/03/2011 Overview: 06/30/2011 Pt is and lives in [place], [place] At this time, we anticipate that the patient will be discharged home. Patient is in SNF after suffering a stroke. Patient requests home care for a home visit. Plan: - Per social work: [facility] in [facility] can assist. SW provided contact info for this [employer] to call when pt returns home if needed - Social work/Case management aware of patients request for homecare . Other acute postoperative pain 06/26/2011 0 09/03/2011 Overview: 06/30/2011 Pain controlled with oral pain medication: Oxycodone and Lidoderm patches Plan: - continue present pain medication at home - patient wants lidoderm patch at home. . DVT (deep venous thrombosis) 11/02/2009 Overview: 06/30/2011 PMHX DVT, not treated. Last US of LE on 06-21-2011 negative for DVT Plan: - progressive ambulation . . Acute, but ill-defined, cerebrovascular disease 09/28/2005 12/28/2016 Overview: 06/30/2011 TIA x2 2005, 2008. 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 1) Laparotomy 2) Joann almita roplasty 3) Wedge the gastric fundus 4) Robbie fundoplication 06/30/2011 Overview: 06/29/2011 - No c/o reflux post op. 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 documented as of this encounter (statuses as of 05/09/2022) [facility] History of Past illness Narrative* Problem Noted Date Resolved Date Discharge planning 06/26/2011 09/03/2011 Overview: 06/30/2011 Pt is and lives in [place], [place] At this time, we anticipate that the patient will be discharged home. Patient is in SNF after suffering a stroke. Patient requests home care for a home visit. Plan: - Per social work: [facility] in [facility] can assist. SW provided contact info for this [employer] to call when pt returns home if needed - Social work/Case management aware of patients request for homecare . Other acute postoperative pain 06/26/2011 0 09/03/2011 Overview: 06/30/2011 Pain controlled with oral pain medication: Oxycodone and Lidoderm patches Plan: - continue present pain medication at home - patient wants lidoderm patch at home. . DVT (deep venous thrombosis) 11/02/2009 Overview: 06/30/2011 PMHX DVT, not treated. Last US of LE on 06-21-2011 negative for DVT Plan: - progressive ambulation . . Acute, but ill-defined, cerebrovascular disease 09/28/2005 12/28/2016 Overview: 06/30/2011 TIA x2 2005, 2008. 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 1) Laparotomy 2) Joann almita roplasty 3) Wedge the gastric fundus 4) Robbie fundoplication 06/30/2011 Overview: 06/29/2011 - No c/o reflux post op. 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 documented as of this encounter (statuses as of 05/22/2022) [facility] History of Past illness Narrative* Problem Noted Date Resolved Date Discharge planning 06/26/2011 09/03/2011 Overview: 06/30/2011 Pt is and lives in [place], [place] At this time, we anticipate that the patient will be discharged home. Patient is in SNF after suffering a stroke. Patient requests home care for a home visit. Plan: - Per social work: [facility] in [facility] can assist. SW provided contact info for this company to call when pt returns home if needed - Social work/Case management aware of patients request for homecare . Other acute postoperative pain 06/26/2011 0 09/03/2011 Overview: 06/30/2011 Pain controlled with oral pain medication: Oxycodone and Lidoderm patches Plan: - continue present pain medication at home - patient wants lidoderm patch at home. . DVT (deep venous thrombosis) 11/02/2009 Overview: 06/30/2011 PMHX DVT, not treated. Last US of LE on 06-21-2011 negative for DVT Plan: - progressive ambulation . . Acute, but ill-defined, cerebrovascular disease 09/28/2005 12/28/2016 Overview: 06/30/2011 TIA x2 2005, 2008. 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 1) Laparotomy 2) Joann almita roplasty 3) Wedge the gastric fundus 4) Robbie fundoplication 06/30/2011 Overview: 06/29/2011 - No c/o reflux post op. 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 documented as of this encounter (statuses as of 05/25/2022) [facility] History of Past illness Narrative* Problem Noted Date Resolved Date Discharge planning 06/26/2011 09/03/2011 Overview: 06/30/2011 Pt is and lives in [place], [place] At this time, we anticipate that the patient will be discharged home. Patient is in SNF after suffering a stroke. Patient requests home care for a home visit. Plan: - Per social work: [facility] in [place] can assist. SW provided contact info for this company to call when pt returns home if needed - Social work/Case management aware of patients request for homecare . Other acute postoperative pain 06/26/2011 0 09/03/2011 Overview: 06/30/2011 Pain controlled with oral pain medication: Oxycodone and Lidoderm patches Plan: - continue present pain medication at home - patient wants lidoderm patch at home. . DVT (deep venous thrombosis) 11/02/2009 Overview: 06/30/2011 PMHX DVT, not treated. Last US of LE on 06-21-2011 negative for DVT Plan: - progressive ambulation . . Acute, but ill-defined, cerebrovascular disease 09/28/2005 12/28/2016 Overview: 06/30/2011 TIA x2 2005, 2008. 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 1) Laparotomy 2) Joann almita roplasty 3) Wedge the gastric fundus 4) Robbie fundoplication 06/30/2011 Overview: 06/29/2011 - No c/o reflux post op. 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 documented as of this encounter (statuses as of 06/10/2022) [facility] History of Past illness Narrative* Problem Noted Date Resolved Date Discharge planning 06/26/2011 09/03/2011 Overview: 06/30/2011 Pt is and lives in [place], [place] At this time, we anticipate that the patient will be discharged home. Patient is in SNF after suffering a stroke. Patient requests home care for a home visit. Plan: - Per social work: [facility] in [facility] can assist. SW provided contact info for this company to call when pt returns home if needed - Social work/Case management aware of patients request for homecare . Other acute postoperative pain 06/26/2011 0 09/03/2011 Overview: 06/30/2011 Pain controlled with oral pain medication: Oxycodone and Lidoderm patches Plan: - continue present pain medication at home - patient wants lidoderm patch at home. . DVT (deep venous thrombosis) 11/02/2009 Overview: 06/30/2011 PMHX DVT, not treated. Last US of LE on 06-21-2011 negative for DVT Plan: - progressive ambulation . . Acute, but ill-defined, cerebrovascular disease 09/28/2005 12/28/2016 Overview: 06/30/2011 TIA x2 2005, 2008. 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 1) Laparotomy 2) Joann almita roplasty 3) Wedge the gastric fundus 4) Robbie fundoplication 06/30/2011 Overview: 06/29/2011 - No c/o reflux post op. 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 documented as of this encounter (statuses as of 06/17/2022) [facility] History of Past illness Narrative* Problem Noted Date Resolved Date Discharge planning 06/26/2011 09/03/2011 Overview: 06/30/2011 Pt is and lives in [place], [place] At this time, we anticipate that the patient will be discharged home. Patient is in SNF after suffering a stroke. Patient requests home care for a home visit. Plan: - Per social work: [facility] in [facility] can assist. SW provided contact info for this company to call when pt returns home if needed - Social work/Case management aware of patients request for homecare . Other acute postoperative pain 06/26/2011 0 09/03/2011 Overview: 06/30/2011 Pain controlled with oral pain medication: Oxycodone and Lidoderm patches Plan: - continue present pain medication at home - patient wants lidoderm patch at home. . DVT (deep venous thrombosis) 11/02/2009 Overview: 06/30/2011 PMHX DVT, not treated. Last US of LE on 06-21-2011 negative for DVT Plan: - progressive ambulation . . Acute, but ill-defined, cerebrovascular disease 09/28/2005 12/28/2016 Overview: 06/30/2011 TIA x2 2005, 2008. 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 1) Laparotomy 2) Joann almita roplasty 3) Wedge the gastric fundus 4) Robbie fundoplication 06/30/2011 Overview: 06/29/2011 - No c/o reflux post op. 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 documented as of this encounter (statuses as of 07/31/2022) [facility] History of Past illness Narrative* Problem Noted Date Resolved Date Discharge planning 06/26/2011 09/03/2011 Overview: 06/30/2011 Pt is and lives in [place], [place] At this time, we anticipate that the patient will be discharged home. Patient is in SNF after suffering a stroke. Patient requests home care for a home visit. Plan: - Per social work: [facility] in [facility] can assist. SW provided contact info for this company to call when pt returns home if needed - Social work/Case management aware of patients request for homecare . Other acute postoperative pain 06/26/2011 0 09/03/2011 Overview: 06/30/2011 Pain controlled with oral pain medication: Oxycodone and Lidoderm patches Plan: - continue present pain medication at home - patient wants lidoderm patch at home. . DVT (deep venous thrombosis) 11/02/2009 Overview: 06/30/2011 PMHX DVT, not treated. Last US of LE on 06-21-2011 negative for DVT Plan: - progressive ambulation . . Acute, but ill-defined, cerebrovascular disease 09/28/2005 12/28/2016 Overview: 06/30/2011 TIA x2 2005, 2008. 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 1) Laparotomy 2) Joann almita roplasty 3) Wedge the gastric fundus 4) Robbie fundoplication 06/30/2011 Overview: 06/29/2011 - No c/o reflux post op. 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 documented as of this encounter (statuses as of 08/20/2022) [facility] History of Past illness Narrative* Problem Noted Date Resolved Date Discharge planning 06/26/2011 09/03/2011 Overview: 06/30/2011 Pt is and lives in [place], [place] At this time, we anticipate that the patient will be discharged home. Patient is in SNF after suffering a stroke. Patient requests home care for a home visit. Plan: - Per social work: [facility] in [facility] can assist. SW provided contact info for this company to call when pt returns home if needed - Social work/Case management aware of patients request for homecare . Other acute postoperative pain 06/26/2011 0 09/03/2011 Overview: 06/30/2011 Pain controlled with oral pain medication: Oxycodone and Lidoderm patches Plan: - continue present pain medication at home - patient wants lidoderm patch at home. . DVT (deep venous thrombosis) 11/02/2009 Overview: 06/30/2011 PMHX DVT, not treated. Last US of LE on 06-21-2011 negative for DVT Plan: - progressive ambulation . . Acute, but ill-defined, cerebrovascular disease 09/28/2005 12/28/2016 Overview: 06/30/2011 TIA x2 2005, 2008. 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 1) Laparotomy 2) Joann almita roplasty 3) Wedge the gastric fundus 4) Robbie fundoplication 06/30/2011 Overview: 06/29/2011 - No c/o reflux post op. 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 documented as of this encounter (statuses as of 09/11/2022) [facility] History of Past illness Narrative* Problem Noted Date Resolved Date Discharge planning 06/26/2011 09/03/2011 Overview: 06/30/2011 Pt is and lives in [place], [place] At this time, we anticipate that the patient will be discharged home. Patient is in SNF after suffering a stroke. Patient requests home care for a home visit. Plan: - Per social work: [facility] in [facility] can assist. SW provided contact info for this company to call when pt returns home if needed - Social work/Case management aware of patients request for homecare . Other acute postoperative pain 06/26/2011 0 09/03/2011 Overview: 06/30/2011 Pain controlled with oral pain medication: Oxycodone and Lidoderm patches Plan: - continue present pain medication at home - patient wants lidoderm patch at home. . DVT (deep venous thrombosis) 11/02/2009 Overview: 06/30/2011 PMHX DVT, not treated. Last US of LE on 06-21-2011 negative for DVT Plan: - progressive ambulation . . Acute, but ill-defined, cerebrovascular disease 09/28/2005 12/28/2016 Overview: 06/30/2011 TIA x2 2005, 2008. 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 1) Laparotomy 2) Joann almita roplasty 3) Wedge the gastric fundus 4) Robbie fundoplication 06/30/2011 Overview: 06/29/2011 - No c/o reflux post op. 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 documented as of this encounter (statuses as of 09/18/2022) [facility] History of Past illness Narrative* Problem Noted Date Resolved Date Discharge planning 06/26/2011 09/03/2011 Overview: 06/30/2011 Pt is and lives in [place], [place] At this time, we anticipate that the patient will be discharged home. Patient is in SNF after suffering a stroke. Patient requests home care for a home visit. Plan: - Per social work: [facility] in [facility] can assist. SW provided contact info for this company to call when pt returns home if needed - Social work/Case management aware of patients request for homecare . Other acute postoperative pain 06/26/2011 0 09/03/2011 Overview: 06/30/2011 Pain controlled with oral pain medication: Oxycodone and Lidoderm patches Plan: - continue present pain medication at home - patient wants lidoderm patch at home. . DVT (deep venous thrombosis) 11/02/2009 Overview: 06/30/2011 PMHX DVT, not treated. Last US of LE on 06-21-2011 negative for DVT Plan: - progressive ambulation . . Acute, but ill-defined, cerebrovascular disease 09/28/2005 12/28/2016 Overview: 06/30/2011 TIA x2 2005, 2008. 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 1) Laparotomy 2) Joann almita roplasty 3) Wedge the gastric fundus 4) Robbie fundoplication 06/30/2011 Overview: 06/29/2011 - No c/o reflux post op. 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 documented as of this encounter (statuses as of 09/19/2022) [facility] History of Past illness Narrative* Problem Noted Date Resolved Date Discharge planning 06/26/2011 09/03/2011 Overview: 06/30/2011 Pt is and lives in [place], [place] At this time, we anticipate that the patient will be discharged home. Patient is in SNF after suffering a stroke. Patient requests home care for a home visit. Plan: - Per social work: [facility] in [place] can assist. SW provided contact info for this company to call when pt returns home if needed - Social work/Case management aware of patients request for homecare . Other acute postoperative pain 06/26/2011 0 09/03/2011 Overview: 06/30/2011 Pain controlled with oral pain medication: Oxycodone and Lidoderm patches Plan: - continue present pain medication at home - patient wants lidoderm patch at home. . DVT (deep venous thrombosis) 11/02/2009 Overview: 06/30/2011 PMHX DVT, not treated. Last US of LE on 06-21-2011 negative for DVT Plan: - progressive ambulation . . Acute, but ill-defined, cerebrovascular disease 09/28/2005 12/28/2016 Overview: 06/30/2011 TIA x2 2005, 2008. 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 1) Laparotomy 2) Joann almita roplasty 3) Wedge the gastric fundus 4) Robbie fundoplication 06/30/2011 Overview: 06/29/2011 - No c/o reflux post op. 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 documented as of this encounter (statuses as of 09/20/2022) [facility] History of Past illness Narrative* Problem Noted Date Diagnosed Date Resolved Date Discharge planning 06/26/2011 2 Overview: 06/30/2011 Pt is and lives in [place], [place] At this time, we anticipate that the patient will be discharged home. Patient is in SNF after suffering a stroke. Patient requests home care for a home visit. Plan: - Per social work: [facility] in [facility] can assist. SW provided contact info for this [employer] to call when pt returns home if needed - Social work/Case management aware of patients request for homecare . Other acute postoperative pain 06/26/2011 09/03/2011 Overview: 06/30/2011 Pain controlled with oral pain medication: Oxycodone and Lidoderm patches Plan: - continue present pain medication at home - patient wants lidoderm patch at home. . DVT (deep venous thrombosis) 11/02/2009 03/04/2017 Overview: 06/30/2011 PMHX DVT, not treated. Last US of LE on 06-21-2011 negative for DVT Plan: - progressive ambulation . . Acute, but ill-defined, cere brovascular disease 09/28/2005 12/28/2016 Overview: 06/30/2011 TIA x2 2005, 2008. 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 1) Laparotomy 2) Joann almita roplasty 3) Wedge the gastric fundus 4) Robbie fundoplication 06/30/2011 Overview: 06/29/2011 - No c/o reflux post op. 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 documented as of this encounter (statuses as of 09/24/2022) [facility] History of Past illness Narrative* Problem Noted Date Diagnosed Date Resolved Date Discharge planning 06/26/2011 2 Overview: 06/30/2011 Pt is and lives in [place], [place] At this time, we anticipate that the patient will be discharged home. Patient is in SNF after suffering a stroke. Patient requests home care for a home visit. Plan: - Per social work: [facility] in [place] can assist. SW provided contact info for this company to call when pt returns home if needed - Social work/Case management aware of patients request for homecare . Other acute postoperative pain 06/26/2011 09/03/2011 Overview: 06/30/2011 Pain controlled with oral pain medication: Oxycodone and Lidoderm patches Plan: - continue present pain medication at home - patient wants lidoderm patch at home. . DVT (deep venous thrombosis) 11/02/2009 03/04/2017 Overview: 06/30/2011 PMHX DVT, not treated. Last US of LE on 06-21-2011 negative for DVT Plan: - progressive ambulation . . Acute, but ill-defined, cere brovascular disease 09/28/2005 12/28/2016 Overview: 06/30/2011 TIA x2 2005, 2008. 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 1) Laparotomy 2) Joann almita roplasty 3) Wedge the gastric fundus 4) Robbie fundoplication 06/30/2011 Overview: 06/29/2011 - No c/o reflux post op. 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 documented as of this encounter (statuses as of 10/29/2022) [facility] History of Past illness Narrative* Problem Noted Date Diagnosed Date Resolved Date Discharge planning 06/26/2011 2 Overview: 06/30/2011 Pt is and lives in [place], [place] At this time, we anticipate that the patient will be discharged home. Patient is in SNF after suffering a stroke. Patient requests home care for a home visit. Plan: - Per social work: [facility] in [facility] can assist. SW provided contact info for [employer] to call when pt returns home if needed - Social work/Case management aware of patients request for homecare . Other acute postoperative pain 06/26/2011 09/03/2011 Overview: 06/30/2011 Pain controlled with oral pain medication: Oxycodone and Lidoderm patches Plan: - continue present pain medication at home - patient wants lidoderm patch at home. . DVT (deep venous thrombosis) 11/02/2009 03/04/2017 Overview: 06/30/2011 PMHX DVT, not treated. Last US of LE on 06-21-2011 negative for DVT Plan: - progressive ambulation . . Acute, but ill-defined, cere brovascular disease 09/28/2005 12/28/2016 Overview: 06/30/2011 TIA x2 2005, 2008. 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 1) Laparotomy 2) Joann almita roplasty 3) Wedge the gastric fundus 4) Robbie fundoplication 06/30/2011 Overview: 06/29/2011 - No c/o reflux post op. 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 documented as of this encounter (statuses as of 11/11/2022) [facility] History of Past illness Narrative* Problem Noted Date Diagnosed Date Resolved Date Discharge planning 06/26/2011 2 Overview: 06/30/2011 Pt is and lives in [place], [place] At this time, we anticipate that the patient will be discharged home. Patient is in SNF after suffering a stroke. Patient requests home care for a home visit. Plan: - Per social work: [facility] in [facility] can assist. SW provided contact info for [employer] to call when pt returns home if needed - Social work/Case management aware of patients request for homecare . Other acute postoperative pain 06/26/2011 09/03/2011 Overview: 06/30/2011 Pain controlled with oral pain medication: Oxycodone and Lidoderm patches Plan: - continue present pain medication at home - patient wants lidoderm patch at home. . DVT (deep venous thrombosis) 11/02/2009 03/04/2017 Overview: 06/30/2011 PMHX DVT, not treated. Last US of LE on 06-21-2011 negative for DVT Plan: - progressive ambulation . . Acute, but ill-defined, cere brovascular disease 09/28/2005 12/28/2016 Overview: 06/30/2011 TIA x2 2005, 2008. 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 1) Laparotomy 2) Joann almita roplasty 3) Wedge the gastric fundus 4) Robbie fundoplication 06/30/2011 Overview: 06/29/2011 - No c/o reflux post op. 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 documented as of this encounter (statuses as of 01/19/2023) [facility] History of Past illness Narrative* Problem Noted Date Diagnosed Date Resolved Date Discharge planning 06/26/2011 2 Overview: 06/30/2011 Pt is and lives in [place], [place] At this time, we anticipate that the patient will be discharged home. Patient is in SNF after suffering a stroke. Patient requests home care for a home visit. Plan: - Per social work: [facility] in [facility] can assist. SW provided contact info for [employer] to call when pt returns home if needed - Social work/Case management aware of patients request for homecare . Other acute postoperative pain 06/26/2011 09/03/2011 Overview: 06/30/2011 Pain controlled with oral pain medication: Oxycodone and Lidoderm patches Plan: - continue present pain medication at home - patient wants lidoderm patch at home. . DVT (deep venous thrombosis) 11/02/2009 03/04/2017 Overview: 06/30/2011 PMHX DVT, not treated. Last US of LE on 06-21-2011 negative for DVT Plan: - progressive ambulation . . Acute, but ill-defined, cere brovascular disease 09/28/2005 12/28/2016 Overview: 06/30/2011 TIA x2 2005, 2008. 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 1) Laparotomy 2) Joann almita roplasty 3) Wedge the gastric fundus 4) Robbie fundoplication 06/30/2011 Overview: 06/29/2011 - No c/o reflux post op. 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 documented as of this encounter (statuses as of 02/12/2023) [facility] History of Past illness Narrative* Problem Noted Date Diagnosed Date Resolved Date Discharge planning 06/26/2011 2 Overview: 06/30/2011 Pt is and lives in [place], [place] At this time, we anticipate that the patient will be discharged home. Patient is in SNF after suffering a stroke. Patient requests home care for a home visit. Plan: - Per social work: [facility] in [facility] can assist. SW provided contact info for this company to call when pt returns home if needed - Social work/Case management aware of patients request for homecare . Other acute postoperative pain 06/26/2011 09/03/2011 Overview: 06/30/2011 Pain controlled with oral pain medication: Oxycodone and Lidoderm patches Plan: - continue present pain medication at home - patient wants lidoderm patch at home. . DVT (deep venous thrombosis) 11/02/2009 03/04/2017 Overview: 06/30/2011 PMHX DVT, not treated. Last US of LE on 06-21-2011 negative for DVT Plan: - progressive ambulation . . Acute, but ill-defined, cere brovascular disease 09/28/2005 12/28/2016 Overview: 06/30/2011 TIA x2 2005, 2008. 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 1) Laparotomy 2) Joann almita roplasty 3) Wedge the gastric fundus 4) Robbie fundoplication 06/30/2011 Overview: 06/29/2011 - No c/o reflux post op. 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 documented as of this encounter (statuses as of 02/21/2023) [facility] History of Past illness Narrative* Problem Noted Date Diagnosed Date Resolved Date Discharge planning 06/26/2011 2 Overview: 06/30/2011 Pt is and lives in [place], [place] At this time, we anticipate that the patient will be discharged home. Patient is in SNF after suffering a stroke. Patient requests home care for a home visit. Plan: - Per social work: [facility] in [facility] can assist. SW provided contact info for this company to call when pt returns home if needed - Social work/Case management aware of patients request for homecare . Other acute postoperative pain 06/26/2011 09/03/2011 Overview: 06/30/2011 Pain controlled with oral pain medication: Oxycodone and Lidoderm patches Plan: - continue present pain medication at home - patient wants lidoderm patch at home. . DVT (deep venous thrombosis) 11/02/2009 03/04/2017 Overview: 06/30/2011 PMHX DVT, not treated. Last US of LE on 06-21-2011 negative for DVT Plan: - progressive ambulation . . Acute, but ill-defined, cere brovascular disease 09/28/2005 12/28/2016 Overview: 06/30/2011 TIA x2 2005, 2008. 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 1) Laparotomy 2) Joann almita roplasty 3) Wedge the gastric fundus 4) Robbie fundoplication 06/30/2011 Overview: 06/29/2011 - No c/o reflux post op. 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 documented as of this encounter (statuses as of 02/24/2023) [facility] [place] [facility] Diagnosis Family history of colon cancer Family history of malignant neoplasm of gastrointestinal tract Family history of gene mutation Personal history of colonic polyps [facility] Encounter for screening mammogram for breast cancer [facility] Diagnosis Acquired hypothyroidism Unspecified hypothyroidism [facility]* Diagnosis Acquired hypothyroidism- Primary Unspecified hypothyroidism IFG (impaired fasting glucose) Impaired fasting glucose Vitamin D deficiency Unspecified vitamin D deficiency Essential hypertension Unspecified essential hypertension Vertigo Dizziness and giddiness OAB (overactive bladder) Hypertonicity of bladder Dysphagia, unspecified type Anxiety Anxiety state, unspecified [facility] Diagnosis Chronic bilateral low back pain with bilateral sciatica Acquired hypothyroidism Unspecified hypothyroidism [facility] Diagnosis Vertigo Dizziness and giddiness Anxiety Anxiety state, unspecified [facility]* Diagnosis UTI symptoms- Primary Other symptoms involving urinary system [facility] Diagnosis Vertigo Dizziness and giddiness Anxiety Anxiety state, unspecified [facility]* Diagnosis Submandibular lymphadenopathy- Primary Enlargement of lymph nodes Primary hypertension Unspecified essential hypertension Throat pain documented in this encounter [facility] note* Diagnosis Vertigo Dizziness and giddiness Anxiety Anxiety state, unspecified documented in this encounter [facility] note* Diagnosis Pain in both lower extremities- Primary Bilateral leg edema Edema Imbalance Abnormality of gait Cold sore Herpes simplex without mention of complication documented in this encounter [facility] note* Diagnosis Vertigo Dizziness and giddiness Anxiety Anxiety state, unspecified documented in this encounter [facility] note* Diagnosis Rash- Primary Rash and other nonspecific skin eruption Intertrigo Other specified erythematous condition documented in this encounter [facility] note* Diagnosis Vertigo Dizziness and giddiness Anxiety Anxiety state, unspecified documented in this encounter [facility] note* Diagnosis Vertigo Dizziness and giddiness Anxiety Anxiety state, unspecified documented in this encounter [facility] note* Diagnosis Encounter for screening mammogram for breast cancer documented in this encounter [facility] note* Diagnosis Chronic bilateral low back pain with bilateral sciatica documented in this encounter [facility] note* Diagnosis Acquired hypothyroidism- Primary Unspecified hypothyroidism Essential hypertension Unspecified essential hypertension Chronic bilateral low back pain with bilateral sciatica Elevated glucose Other abnormal glucose Mixed hyperlipidemia Encounter for immunization Need for other specified prophylactic vaccination against single bacterial disease Vertigo Dizziness and giddiness Anxiety Anxiety state, unspecified documented in this encounter [facility] note* Diagnosis Acquired hypothyroidism- Primary Unspecified hypothyroidism Mixed hyperlipidemia Essential hypertension Unspecified essential hypertension Anemia, unspecified type IFG (impaired fasting glucose) Impaired fasting glucose Medication monitoring encounter Encounter for therapeutic drug monitoring documented in this encounter [facility] for referral (narrative)* Diagnostic Procedure Only (Routine) - Pending Review Specialty Diagnoses / Procedures Referred By Silvana t Referred To Contact [facility] Diagnoses Encounter for screening mammogram for breast cancer Procedures FORTUNATO SCREENING SCREENING MAMMOGRAPHY BI 2-VIEW BREAST INC Paulo Antoine MD [address] [place] [address] [facility] [address] [place] [address] Referral ID Status Reason Start Date Expiration Date Visits Requested Visits Authorized [id number] Pending Review Auto-Generat ed Referral 08/22/2021 09/21/2022 1 1 [facility] for referral (narrative)* Diagnostic Procedure Only (Routine) - Closed Specialty Diagnoses / Procedures Referred By Silvana t Referred To Contact [facility] Diagnoses Encounter for screening mammogram for breast cancer Procedures FORTUNATO SCREENING SCREENING MAMMOGRAPHY BI 2-VIEW BREAST INC Paulo Antoine MD [address] [place] [address] [facility] [address] [place] [address] Referral ID Status Reason Start Date Expiration Date V isits Requested Visits Authorized [id number] Closed Auto-Generate d Referral 08/22/2021 09/21/2022 1 1 [facility] for visit Narrative* Diagnostic Procedure Only (Routine) - Closed Specialty Diagnoses / Procedures Referred By Silvana escobar Referred To Contact [facility] Diagnoses Encounter for screening mammogram for breast cancer Procedures FORTUNATO SCREENING SCREENING MAMMOGRAPHY BI 2-VIEW BREAST INC Paulo Antoine MD [address] [place] [address] [facility] [address] [place] [address] Referral ID Status Reason Start Date Expiration Date V isits Requested Visits Authorized [id number] Closed Auto-Generate d Referral 08/22/2021 09/21/2022 1 1 [facility] Reason for Referral Status Reason Specialty Diagnoses / Procedures Referred By Contact Referred To Contact [facility] Required Lab Diagnoses Family history of colon cancer Family history of gene mutation Personal history of colonic polyps Procedures Genetic Sendout: Common Hereditary Cancers Panel Quoc Diaz MD [address] [place] [address], [address] [place] [address] Specialty Diagnoses / Procedures Referred By Silvana escobar Referred To Contact Diagnoses Ryan Giles MD [address] [place] [address] Referral ID Status Reason Start Date Expiration Date V isits Requested Visits Authorized [id number] Authorized 03/17/2022 03/16/2023 1 1 Advance Directives No Advanced Directives Records FoundDocuments on File Type Date Recorded Patient Research Psychologist Expl anation Power of Sifting Operator Documents on File Type Date Recorded Patient Research Psychologist Expl anation Advance Directive(s) 10/26/2020 12:30 PM Advance Directive(s) 09/29/2020 11:26 AM Advance Directive(s) 06/24/2011 6:54 PM Documents on File Type Date Recorded Patient Research Psychologist Expl anation Advance Directive(s) 10/26/2020 12:30 PM Advance Directive(s) 09/29/2020 11:26 AM Advance Directive(s) 06/24/2011 6:54 PM Documents on File Type Date Recorded Patient Research Psychologist Expl anation Advance Directive(s) 06/24/2011 6:54 PM Documents on File Type Date Recorded Patient Research Psychologist Expl anation Advance Directive(s) 06/24/2011 6:54 PM Summary Purpose Family History No Family History Records Found Additional Source Comments Reason for Visit (unrecogniz ed section and content) Reason Comments Medication Problem Reason Comments Patient Question Reason Comments F/U 6 months Reason Onset Date Comments Refill Request 11/01/2021 Reason Onset Date Comments Refill Request 02/19/2022 Reason Comments Results Reason Onset Date Comments Refill Request 03/19/2022 Reason Comments Face Swelling Reason Comments Hospital F/U Reason Comments [facility], PT, plan of care FYI-No Action Needed Reason Comments [facility], OT update/verbal order Reason Onset Date Comments Refill Request 05/21/2022 Reason Comments OT Update Reason Comments Opened In Error Reason Comments Established Patient Follow up BLE weakne ss and pain Reason Onset Date Comments Refill Request 07/30/2022 Reason Comments Rx transferred to different pharmacy Reason Onset Date Comments Refill Request 09/09/2022 Reason Onset Date Comments Refill Request 09/18/2022 Reason Comments c/o rash on right side of face and lower left abdomen Reason Onset Date Comments Refill Request 09/24/2022 Reason Onset Date Comments Refill Request 10/26/2022 Reason Comments Patient Update Reason Onset Date Comments Refill Request 02/12/2023 Reason Comments Follow Up Reason Comments Lab Orders Source Comments (unrecognize d section and content) In the event this informatio n is protected by the Federal Confidentiality of Alcohol and Drug Abuse Patient Records regulations: The Federal rules restrict any use of the information to criminally investigate or prosecute any alcohol or drug abuse patient.[facility] event this information is protected by the Federal Confidentiality of Alcohol and Drug Abuse Patient Records regulations: The Federal rules restrict any use of the information to criminally investigate or prosecute any alcohol or drug abuse patient.[facility] the event this information is protected by the Federal Confidentiality of Alcohol and Drug Abuse Patient Records regulations: The Federal rules restrict any use of the information to criminally investigate or prosecute any alcohol or drug abuse patient.[facility] the event this information is protected by the Federal Confidentiality of Alcohol and Drug Abuse Patient Records regulations: The Federal rules restrict any use of the information to criminally investigate or prosecute any alcohol or drug abuse patient.[facility] event this information is protected by the Federal Confidentiality of Alcohol and Drug Abuse Patient Records regulations: The Federal rules restrict any use of the information to criminally investigate or prosecute any alcohol or drug abuse patient.[facility] event this information is protected by the Federal Confidentiality of Alcohol and Drug Abuse Patient Records regulations: The Federal rules restrict any use of the information to criminally investigate or prosecute any alcohol or drug abuse patient.[facility] event this information is protected by the Federal Confidentiality of Alcohol and Drug Abuse Patient Records regulations: The Federal rules restrict any use of the information to criminally investigate or prosecute any alcohol or drug abuse patient.[facility] event this information is protected by the Federal Confidentiality of Alcohol and Drug Abuse Patient Records regulations: The Federal rules restrict any use of the information to criminally investigate or prosecute any alcohol or drug abuse patient.[facility] event this information is protected by the Federal Confidentiality of Alcohol and Drug Abuse Patient Records regulations: The Federal rules restrict any use of the information to criminally investigate or prosecute any alcohol or drug abuse patient.[facility] event this information is protected by the Federal Confidentiality of Alcohol and Drug Abuse Patient Records regulations: The Federal rules restrict any use of the information to criminally investigate or prosecute any alcohol or drug abuse patient.[facility] event this information is protected by the Federal Confidentiality of Alcohol and Drug Abuse Patient Records regulations: The Federal rules restrict any use of the information to criminally investigate or prosecute any alcohol or drug abuse patient.[facility] event this information is protected by the Federal Confidentiality of Alcohol and Drug Abuse Patient Records regulations: The Federal rules restrict any use of the information to criminally investigate or prosecute any alcohol or drug abuse patient.[facility] the event this information is protected by the Federal Confidentiality of Alcohol and Drug Abuse Patient Records regulations: The Federal rules restrict any use of the information to criminally investigate or prosecute any alcohol or drug abuse patient.[facility] event this information is protected by the Federal Confidentiality of Alcohol and Drug Abuse Patient Records regulations: The Federal rules restrict any use of the information to criminally investigate or prosecute any alcohol or drug abuse patient.[facility] event this information is protected by the Federal Confidentiality of Alcohol and Drug Abuse Patient Records regulations: The Federal rules restrict any use of the information to criminally investigate or prosecute any alcohol or drug abuse patient.Access [facility] the event this information is protected by the Federal Confidentiality of Alcohol and Drug Abuse Patient Records regulations: The Federal rules restrict any use of the information to criminally investigate or prosecute any alcohol or drug abuse patient.[facility] DaytonIn the event this information is protected by the Federal Confidentiality of Alcohol and Drug Abuse Patient Records regulations: The Federal rules restrict any use of the information to criminally investigate or prosecute any alcohol or drug abuse patient.[facility] DaytonIn the event this information is protected by the Federal Confidentiality of Alcohol and Drug Abuse Patient Records regulations: The Federal rules restrict any use of the information to criminally investigate or prosecute any alcohol or drug abuse patient.[facility] DaytonIn the event this information is protected by the Federal Confidentiality of Alcohol and Drug Abuse Patient Records regulations: The Federal rules restrict any use of the information to criminally investigate or prosecute any alcohol or drug abuse patient.[facility] DaytonIn the event this information is protected by the Federal Confidentiality of Alcohol and Drug Abuse Patient Records regulations: The Federal rules restrict any use of the information to criminally investigate or prosecute any alcohol or drug abuse patient.[facility] DaytonIn the event this information is protected by the Federal Confidentiality of Alcohol and Drug Abuse Patient Records regulations: The Federal rules restrict any use of the information to criminally investigate or prosecute any alcohol or drug abuse patient.[facility] DaytonIn the event this information is protected by the Federal Confidentiality of Alcohol and Drug Abuse Patient Records regulations: The Federal rules restrict any use of the information to criminally investigate or prosecute any alcohol or drug abuse patient.[facility] DaytonIn the event this information is protected by the Federal Confidentiality of Alcohol and Drug Abuse Patient Records regulations: The Federal rules restrict any use of the information to criminally investigate or prosecute any alcohol or drug abuse patient.[facility] DaytonIn the event this information is protected by the Federal Confidentiality of Alcohol and Drug Abuse Patient Records regulations: The Federal rules restrict any use of the information to criminally investigate or prosecute any alcohol or drug abuse patient.[facility] DaytonIn the event this information is protected by the Federal Confidentiality of Alcohol and Drug Abuse Patient Records regulations: The Federal rules restrict any use of the information to criminally investigate or prosecute any alcohol or drug abuse patient.[facility] DaytonIn the event this information is protected by the Federal Confidentiality of Alcohol and Drug Abuse Patient Records regulations: The Federal rules restrict any use of the information to criminally investigate or prosecute any alcohol or drug abuse patient.[facility] DaytonIn the event this information is protected by the Federal Confidentiality of Alcohol and Drug Abuse Patient Records regulations: The Federal rules restrict any use of the information to criminally investigate or prosecute any alcohol or drug abuse patient.[facility] DaytonIn the event this information is protected by the Federal Confidentiality of Alcohol and Drug Abuse Patient Records regulations: The Federal rules restrict any use of the information to criminally investigate or prosecute any alcohol or drug abuse patient.[facility] DaytonIn the event this information is protected by the Federal Confidentiality of Alcohol and Drug Abuse Patient Records regulations: The Federal rules restrict any use of the information to criminally investigate or prosecute any alcohol or drug abuse patient.[facility] DaytonIn the event this information is protected by the Federal Confidentiality of Alcohol and Drug Abuse Patient Records regulations: The Federal rules restrict any use of the information to criminally investigate or prosecute any alcohol or drug abuse patient.[facility] Care Teams (unrecognized sec tion and content) Fur Glazer Relationship Specialty Start Date End Date Paulo Riojas MD [address] [place], [place] [id number] PCP - General 02/20/06 Fur Glazer Relationship Specialty Start Date End Date Paulo Riojas MD [address] [place], [place] [id number] PCP - General 02/20/06 Fur Glazer Relationship Specialty Start Date End Date Paulo Riojas MD [address] [facility] [place] [address] PCP - General 02/20/06 Fur Glazer Relationship Specialty Start Date End Date Paulo Riojas MD [address] [facility] [place] [address] PCP - General 02/20/06 Fur Glazer Relationship Specialty Start Date End Date Paulo Riojas MD [address] [facility] [place] [address] PCP - General 02/20/06 Fur Glazer Relationship Specialty Start Date End Date Paulo Riojas MD [address] [place] [address], [place] [address] PCP - General 02/20/06 Fur Glazer Relationship Specialty Start Date End Date Paulo Riojas MD [facility] [place] [address] PCP - General 02/20/06 Fur Glazer Relationship Specialty Start Date End Date Paulo Riojas MD [facility] [place] [address] PCP - General 02/20/06 Fur Glazer Relationship Specialty Start Date End Date Paulo Riojas MD [facility] [place] [address] PCP - General 02/20/06 Fur Glazer Relationship Specialty Start Date End Date Paulo Riojas MD [facility] [place] [address] PCP - General 02/20/06 Fur Glazer Relationship Specialty Start Date End Date Paulo Riojas MD [address] [place] [address], [place] [address] PCP - General 02/20/06 Fur Glazer Relationship Specialty Start Date End Date Paulo Riojas MD [address] [place] [address] PCP - General 02/20/06 Fur Glazer Relationship Specialty Start Date End Date Paulo Riojas MD [address] [place], [place] [address] PCP - General 02/20/06 Fur Glazer Relationship Specialty Start Date End Date Paulo Riojas MD [address] [place] [address] PCP - General 02/20/06 Fur Glazer Relationship Specialty Start Date End Date Paulo Riojas MD [address] [place] [address] PCP - General 02/20/06 Fur Glazer Relationship Specialty Start Date End Date Paulo Riojas MD [address] [place] [address] PCP - General 02/20/06 Fur Glazer Relationship Specialty Start Date End Date Paulo Riojas MD [address] [place] [address] PCP - General 02/20/06 Fur Glazer Relationship Specialty Start Date End Date Paulo Riojas MD [address] [place], [place] [address] PCP - General 02/20/06 INFORMATION SOURCE (unrecogn ized section and content) FOR RECORDS PERTAINING TO PATIENTS WHO ARE OR HAVE BEEN ENROLLED IN A CHEMICAL DEPENDENCY/SUBSTANCEABUSE PROGRAM, SOME INFORMATION MAY BE OMITTED. This clinical summary was aggregated from multiple sources. Caution should be exercised in using it in the provision of clinical care. This summary normalizes information from multiple sources, and as a consequence, information in this document may materially change the coding, format and clinical context of patient data. In addition, data may be omitted in some cases. CLINICAL DECISIONS SHOULD BE BASED ON THE PRIMARY CLINICAL RECORDS. [employer] provides no warranty or guarantee of the accuracy or completeness of information in this document.
[2023-04-23 07:37] VITALS: BP 143/84; PULSE 79; RESP 16; TEMP 36.4; O2SAT 99; BMI 32.5
[2023-04-23] MEDS: Lactated Ringers 1,000 ML 15 ML IV (07:53)
--- NOTE | 2023-04-23 08:30 | HP.PCM_ITS ---
History and Physical Date of Admission: 04/23/23 73 F who presents to the office today for [facility] ED 08.05.22. 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 Presents with constipation with only a small, hard BM in the last 24 hours with some minimal nausea without emesis. Discharged with [employer]. ? KUB moderate fecal burden *BGI 7 continues with constipation which she feels is r/t stress and de hydration because she is unable to eat or drink at work. 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 ? Biochemical CBC, ESR, CMP, LFT, LDH, GA(H473)ME, TERRELL, ANCA, JEB comp, celiac, IBD without pertinent abnormality ? CRP H5.65 Contact 10.16.22 with bloodwork results. She is working at stool and urine samples. ? Stool calprotectin, elastase, lactoferrin, C.difficile (formed), EP, O/P, giardia WNL ? Urine porphyrins coproporhyrin H81, hexacarboxylporphyrin H<3 Contact 11.06.22 with results, recommend specialized porphyria urine testing. ? Urine 9.05.09 LC porphyria WNL OV 03.05.23- Pt doing well. Has eye surgery the . Says she is due for Colonoscopy. Is not having any abdominal pain. BM are sporadic.More constipation. Drinks prune and apple juice. Has a BM every day or so. Has lost 5bls since last visit. Continues to have heartburn with reflux. ROS Const Constitutional: Positive for fatigue and weakness ENT ENT: No difficulty swallowing Gastro GI: Positive for abdominal pain; No belching, bloating, change in bowel habits, change in stool character, coffee ground emesis, constipation, cramping, diarrhea, heartburn, difficulty swallowing, feeling full early, excessive flatus, incontinent of stools, Vomiting blood/hematemesis, Blood in stool, loose stools, Black,tarry stools, nausea/dyspepsia, pain with swallowing, vomiting or other Musc Musculoskeletal: No joint pain Skin Skin: No yellowing of the eye or itchy eyes Neuro Neurology: Positive for weakness Psych Psychiatric: No anxiety and No depression Endo Endocrine: Positive for fatigue Aller/Imm Allergy/Immunologic: No itchy eyes John/Lymp Hematologic/Lymphatic: No easy bleeding or easy bruising Exam Const General: cooperative and comfortable Nutritional Appearance: average body habitus and well nourished [facility] Head: normal to inspection Ears: hearing grossly normal bilaterally Nose: external nose normal Face and sinus: normal facial exam Mouth: oral mucosae normal Throat: posterior oropharynx normal Eyes General: appearance normal, both eyes and all related structures Neck Neck: normal visual inspection Chest Chest palpation & inspection: normal inspection of the chest and normal palpation of entire chest wall Resp Effort & Inspection: normal respiratory effort Auscultation: Bilateral: Clear to Auscultation Cardio Palpation: normal PMI Rate: regular rate Rhythm: regular rhythm GI Inspection: normal to inspection Auscultation: normal bowel sounds Percussion: normal to percussion Palpation: no hepatosplenomegaly Skin General: no rashes or lesions noted Neuro General: patient alert Extrem General: normal to inspection Psych Affect: normal affect Quality Reporting Tobacco Screening ([facility] 138) Smoking Status: Never smoker Assessment and Plan Assessment and Plan (1) Barretts esophagus: Status: Chronic Qualifiers: Sarmiento's esophagus type: without dysplasia Qualified Code(s): K22.70 - 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 Plan: She will need to have a surveillance upper endoscopy for Sarmiento's esophagus. (2) Abdominal pain: Status: Chronic Qualifiers: Abdominal location: epigastric Qualified Code(s): R10.13 - Epigastric pain Plan: 73-year-old female extensive past medical history of anemia, CAD, Sarmiento's, irritable bowel, TIA and gallstone pancreatitis. She is able to to ligation and cholecystectomy. States for about a week she has been constipated. She has Very small bowel movements and can not go to the bathroom at work. She had nausea without vomiting. No dysuria. No fever. States she feels dehydrated. Her KUB showed constipation. Her last colonoscopy showed diverticular disease but no polyps. She does not have any alarm signs such as fever, weight loss, obstruction or bleeding per rectum. We will check her stools for occult blood will also check in 5 markers and stool studies. At and she will from Amitiza 8 mcg twice a day versus super greens and a teaspoon of lactulose. We will schedule her for surveillance colonoscopy due to her strong family history of colon cancer. Also she has a family history of stomach cancer in her son. It is unknown which abnormality was Associated with his gastric cancer. I have examined the patient and the H&P has been reviewed. There are no clinical changes since date of exam.
[2023-04-23 09:02] VITALS: BP 143/84; BP 155/79; PULSE 74; RESP 16; TEMP 37.3; O2SAT 95
--- NOTE | 2023-04-23 09:03 | OP.EGD_ITS ---
Patient Name: Keshia Rojas Procedure Date: 04/23/2023 8:25 AM Date of : 1950 Age: 73 Procedure: Upper GI endoscopy Indications: Follow-up of Sarmiento's esophagus Providers: Raul Casper DO Referring MD: Raul Casper DO Medicines: Monitored Anesthesia Care Patient Profile: This is a 73 year old female. Refer to note in patient chart for documentation of history and physical. Patient has symptoms of chronic heartburn. Complications: No immediate complications. Procedure: Pre-Anesthesia Assessment: - Prior to the procedure, a History and Physical was performed, and patient medications and allergies were reviewed. The patient is competent. The risks and benefits of the procedure and the sedation options and risks were discussed with the patient. All questions were answered and informed consent was obtained. Patient identification and proposed procedure were verified by the physician in the pre-procedure area. Mental Status Examination: alert and oriented. Airway Examination: normal oropharyngeal airway and neck mobility. Respiratory Examination: clear to auscultation. CV Examination: normal. Prophylactic Antibiotics: The patient does not require prophylactic antibiotics. Prior Anticoagulants: The patient has taken no anticoagulant or antiplatelet agents. ASA Grade Assessment: II - A patient with mild systemic disease. After reviewing the risks and benefits, the patient was deemed in satisfactory condition to undergo the procedure. The anesthesia plan was to use monitored anesthesia care (MAC). Immediately prior to administration of medications, the patient was re-assessed for adequacy to receive sedatives. The heart rate, respiratory rate, oxygen saturations, blood pressure, adequacy of pulmonary ventilation, and response to care were monitored throughout the procedure. The physical status of the patient was re-assessed after the procedure. After obtaining informed consent, the endoscope was passed under direct vision. Throughout the procedure, the patient's blood pressure, pulse, and oxygen saturations were monitored continuously. The Colonoscope was introduced through the mouth, and advanced to the second part of duodenum. The upper GI endoscopy was accomplished without difficulty. The patient tolerated the procedure well. Scope In: 8:37:58 AM Scope Out: 8:41:56 AM Total Procedure Duration Time 0 hours 3 minutes 58 seconds Findings: There were esophageal mucosal changes secondary to established short-segment Sarmiento's disease present in the lower third of the esophagus. The maximum longitudinal extent of these mucosal changes was 3 cm in length. Mucosa was biopsied with a cold forceps for histology in a targeted manner at intervals of 1 cm in the lower third of the esophagus. One specimen bottle was sent to pathology. Verification of patient identification for the specimen was done. Estimated blood loss was minimal. Evidence of a Toupet fundoplication was found in the gastric fundus. The wrap appeared loose. This was traversed. No other significant abnormalities were identified in a careful examination of the stomach. The second portion of the duodenum was normal. Impression: - Esophageal mucosal changes secondary to established short-segment Sarmiento's disease. Biopsied. - A Toupet fundoplication was found. The wrap appears loose. - Normal second portion of the duodenum. Recommendation: - Discharge patient to home. - Resume previous diet. - Continue present medications. - Await pathology results. - Repeat upper endoscopy in 1 year for surveillance. Procedure Code(s): --- Professional --- 03695, Esophagogastroduodenoscopy, flexible, transoral; with biopsy, single or multiple CPT copyright 2021 [employer] [place] [employer] [employer]. All rights reserved. The codes documented in this report are preliminary and upon floor worker review may be revised to meet current compliance requirements. Raul Casper DO 04/23/2023 9:03:25 AM This report has been signed electronically. Number of Addenda: 0 Note Initiated On: 04/23/2023 8:25 AM
--- NOTE | 2023-04-23 09:04 | OP.CCLET_ITS ---
04/23/2023 Miryam Riojas [address] [place] [address] Re : Upper GI endoscopy procedure for Keshia Rojas Dear Dr. Riojas This procedure was performed on Sunday, April 23, 2023. My impressions and recommendations are as follows: Impressions : - Esophageal mucosal changes secondary to established short-segment Sarmiento's disease. Biopsied. - A Toupet fundoplication was found. The wrap appears loose. - Normal second portion of the duodenum. Recommendations : - Discharge patient to home. - Resume previous diet. - Continue present medications. - Await pathology results. - Repeat upper endoscopy in 1 year for surveillance. My findings are described in the full procedure note, which is enclosed. If I can be of further assistance, please feel free to contact me at . Sincerely, Ralu Casper, 04/23/2023 9:03:25 AM This report has been signed electronically.
[2023-04-23 09:05] VITALS: BP 105/75; BP 143/84; PULSE 64; RESP 16; O2SAT 95
--- NOTE | 2023-04-23 09:06 | OP.COLON_ITS ---
Patient Name: Keshia Rojas Procedure Date: 04/23/2023 8:42 AM Date of : 1950 Age: 73 Procedure: Colonoscopy Indications: Colon cancer screening in patient at increased risk: Family history of 1st-degree relative with colon polyps, Screening in patient at increased risk: Family history of 1st-degree relative with colorectal cancer Providers: Raul Casper DO Referring MD: Raul Casper DO Medicines: Monitored Anesthesia Care Patient Profile: This is a 73 year old female. Refer to note in patient chart for documentation of history and physical. Patient has symptoms of chronic heartburn. Last Colonoscopy: more than 3 years ago. Complications: No immediate complications. Procedure: Pre-Anesthesia Assessment: - Prior to the procedure, a History and Physical was performed, and patient medications and allergies were reviewed. The patient is competent. The risks and benefits of the procedure and the sedation options and risks were discussed with the patient. All questions were answered and informed consent was obtained. Patient identification and proposed procedure were verified by the physician in the pre-procedure area. Mental Status Examination: alert and oriented. Airway Examination: normal oropharyngeal airway and neck mobility. Respiratory Examination: clear to auscultation. CV Examination: normal. Prophylactic Antibiotics: The patient does not require prophylactic antibiotics. Prior Anticoagulants: The patient has taken no anticoagulant or antiplatelet agents. ASA Grade Assessment: II - A patient with mild systemic disease. After reviewing the risks and benefits, the patient was deemed in satisfactory condition to undergo the procedure. The anesthesia plan was to use monitored anesthesia care (MAC). Immediately prior to administration of medications, the patient was re-assessed for adequacy to receive sedatives. The heart rate, respiratory rate, oxygen saturations, blood pressure, adequacy of pulmonary ventilation, and response to care were monitored throughout the procedure. The physical status of the patient was re-assessed after the procedure. After I obtained informed consent, the scope was passed under direct vision. Throughout the procedure, the patient's blood pressure, pulse, and oxygen saturations were monitored continuously. The Colonoscope was introduced through the anus and advanced to the cecum, identified by appendiceal orifice and ileocecal valve. The colonoscopy was performed without difficulty. The patient tolerated the procedure well. The quality of the bowel preparation was adequate. The ileocecal valve, appendiceal orifice, and rectum were photographed. Scope In: 8:43:41 AM Scope Withdrawal Time 0 hours 9 minutes 59 seconds Scope Out: 8:57:59 AM Total Procedure Duration Time 0 hours 14 minutes 18 seconds Findings: The perianal and digital rectal examinations were normal. A 5 mm polyp was found in the cecum. The polyp was sessile. The polyp was removed with a cold snare. Resection and retrieval were complete. Verification of patient identification for the specimen was done. Estimated blood loss was minimal. The exam was otherwise without abnormality on direct and retroflexion views. Impression: - One 5 mm polyp in the cecum, removed with a cold snare. Resected and retrieved. - The examination was otherwise normal on direct and retroflexion views. Recommendation: - Discharge patient to home. - Resume previous diet. - Continue present medications. - Await pathology results. - Repeat colonoscopy in 5 years for surveillance. Procedure Code(s): --- Professional --- 62444, Colonoscopy, flexible; with removal of tumor(s), polyp(s), or other lesion(s) by snare technique CPT copyright 2021 [employer]. All rights reserved. The codes documented in this report are preliminary and upon financial service professional review may be revised to meet current compliance requirements. Raul Casper DO 04/23/2023 9:06:00 AM This report has been signed electronically. Number of Addenda: 0 Note Initiated On: 04/23/2023 8:42 AM
--- NOTE | 2023-04-23 09:06 | OP.CCLET_ITS ---
04/23/2023 Miryam Riojas [address] [place] [address] Re : Colonoscopy procedure for Keshia Rojas Dear Dr. Riojas This procedure was performed on Sunday, April 23, 2023. My impressions and recommendations are as follows: Impressions : - One 5 mm polyp in the cecum, removed with a cold snare. Resected and retrieved. - The examination was otherwise normal on direct and retroflexion views. Recommendations : - Discharge patient to home. - Resume previous diet. - Continue present medications. - Await pathology results. - Repeat colonoscopy in 5 years for surveillance. My findings are described in the full procedure note, which is enclosed. If I can be of further assistance, please feel free to contact me at . Sincerely, Raul Friend, 04/23/2023 9:06:00 AM This report has been signed electronically.
[2023-04-23 09:10] VITALS: BP 127/81; BP 143/84; PULSE 65; RESP 16; O2SAT 95
[2023-04-23 09:17] VITALS: BP 117/74; BP 143/84; PULSE 64; RESP 18; TEMP 36.7; O2SAT 94
[2023-04-23 10:00] VITALS: BP 143/84
== END 2023-04-23 10:02 | disposition home or self-care (01) ==
LOC: EN 07:14 → AC 07:16
PROVIDERS: PCP Internal Medicine; Referring Provider Internal Medicine Gastroenterology; Visit Provider Internal Medicine Gastroenterology
PROC: 0DJD8ZZ Inspection of Lower Intestinal Tract, Via Natural or Artificial Opening Endoscopic (ICD-10-PCS; CPT 45378; principal; 2023-04-23 08:10)
DX: Z12.11 Encounter for screening for malignant neoplasm of colon (principal); K22.70 Barrett's esophagus without dysplasia; Z80.0 Family history of malignant neoplasm of digestive organs; I25.10 Atherosclerotic heart disease of native coronary artery without angina pectoris; D12.0 Benign neoplasm of cecum; K21.00 Gastro-esophageal reflux disease with esophagitis, without bleeding; Z79.890 Hormone replacement therapy; Z79.82 Long term (current) use of aspirin; Z79.899 Other long term (current) drug therapy; J45.909 Unspecified asthma, uncomplicated; E03.9 Hypothyroidism, unspecified; Z90.49 Acquired absence of other specified parts of digestive tract
CPT/HCPCS: 45385; 43239; 88305; 88313; 88341; 88342; J7120; J2405

== ENCOUNTER 2023-06-19 12:33 | Emergency (ER) | payer MEDICARE, BC, SELFPAY ==
[2023-06-19 12:33] VITALS: BP 151/90; PULSE 84; RESP 16; TEMP 35.7; O2SAT 95
--- NOTE | 2023-06-19 12:56 | CT_ITS ---
STUDY: CT LUMBAR SPINE WITHOUT CONTRAST REASON FOR EXAM: Female, 73 years old. Pain and injury RADIATION DOSAGE (If Supplied By Facility): CTDIvol = ( 17.06 ) mGy, DLP = ( 551.11 ) mGycm TECHNIQUE: The patient was scanned in a multi detector CT scanner. High resolution transaxial imaging was performed. Images were obtained from L1 to S1 level. Sagittal and coronal images were reconstructed. Individualized dose optimization techniques were used for this CT. COMPARISON: Comparison is made with prior study May 23, 2015. FINDINGS: Normal lumbar lordosis. There is no substantial scoliosis. Normal vertebrae of the lumbar spine. L1-2: Mild degree of disc space narrowing. Anterior spondylosis. L2-3: Mild degree of disc space narrowing and anterior spondylosis. Facet joint osteoarthritis and hypertrophy. L3-4: Facet joint osteoarthritis and hypertrophy. Mild degree of diffuse posterior disc bulge with bilateral neural foraminal stenosis worse on the left side. L4-5: Grade 1 anterior listhesis of L4 on L5. There is evidence of a disc space narrowing and disc degeneration. Facet joint osteoarthritis and hypertrophy. Mild degree of bilateral neural foraminal stenosis. Mild to moderate degree of central canal stenosis due to the listhesis. L5-S1: The patient is status post L5-S1 interpedicular screw and bruce fixation. There is a marked degree of disc space narrowing and disc degeneration. Normal visualized paraspinous soft tissue structures. Degenerative changes of the sacroiliac joints bilaterally. CT/Spine Lumbar without Contrast IMPRESSION: Status post L5-S1 pedicle screw fixation. Anterolisthesis of L4 on L5 with the moderate degree of central canal and bilateral neural foraminal stenosis. Electronically Signed: Venkata Singer MD at 13:34 EDT ,
--- NOTE | 2023-06-19 12:56 | ED.VIS.FALL ---
HPI HPI - Fall History of Present Illness Chief Complaint: Fall Informant: patient and spouse/S.O. Narrative Narrative: 73-year-old female presenting to the emergency room with a chief complaint of back pain. Patient has had prior lumbar fusion in 2014. She states she fell in April landing in a sitting position and has had discomfort and low back since. She points to her midline incision and states that there is a screw that is bothering her. She states that on (this previous weekend she was helping her get into bed when the pain acutely got worse. She notes pain down the posterior aspect of both legs but particularly the left 1 in which travels all the way down to her foot. She denies any radiation to the foot on the right but the pain stops at the knee. She denies any acute foot drop or loss of sensation. She has chronic urinary incontinence but does not feel like she is having any retention. No fecal incontinence. No fevers. PFSH PFS Medical History Ambulates with cane Anemia Anxiety Arthritis Atherosclerotic heart disease of [place] coronary artery without angina pectoris Barretts esophagus Cardiology follow-up encounter Cataracts, bilateral Cholecystitis Cholelithiasis with chronic cholecystitis DDD (degenerative disc disease), lumbar Difficulty swallowing DVT (deep venous thrombosis) Dysmetabolic syndrome X Environmental allergies Essential hypertension Fibromyalgia Gallstones Ganglion cyst Gastric reflux GERD (gastroesophageal reflux disease) History of atrial dilatation History of cataract History of DVT (deep vein thrombosis) History of echocardiogram History of edema History of stress test Hoarseness Hypothyroidism IBS (irritable bowel syndrome) Leg cramps Loss of hearing Non-smoker Osteoarthritis PAD (peripheral artery disease) Pancreatitis Pancreatitis, gallstone Post-menopausal Seasonal allergies Segmental and somatic dysfunction of lumbar region Segmental and somatic dysfunction of pelvic region Segmental and somatic dysfunction of thoracic region Shortness of breath on exertion Thyroid disease TIA (transient ischemic attack) Urinary incontinence Wears glasses Wears partial dentures Home Medications gabapentin 100 mg capsule 300 mg PO QHS 01/11/14 [History Last Taken 05/05/22] diazepam 5 mg tablet 5 mg PO QHS PRN anxiety 01/13/19 [History Last Taken 05/05/22] aspirin 81 mg tablet,delayed release 81 mg PO DAILY@0800 02/09/19 [History Last Taken 05/05/22] multivitamin 1 tab PO DAILY 04/08/19 [History Last Taken 05/05/22] white petrolatum-mineral oil 94 %-3 % eye ointment (Systane Nighttime) 1 applic ophthalmic (eye) QHS cataracts 04/08/19 [History Last Taken 05/04/22] cholecalciferol (vitamin D3) 125 mcg (5,000 unit) capsule 125 mcg PO DAILY 10/11/19 [History Last Taken 05/05/22] inhalational spacing device (BreatheRite MDI Spacer) #1 ea 10/11/19 [Rx Last Taken Unknown] acetaminophen 500 mg capsule 500 mg PO Q6H PRN Pain 05/05/22 [History Last Taken Unknown] levothyroxine 88 mcg tablet 88 mcg PO DAILY 07/26/22 [History Last Taken 04/23/23] ipratropium 0.5 mg-albuterol 3 mg (2.5 mg base)/3 mL nebulization soln 3 ml inhalation Q4H PRN PRN SOB &/OR WHEEZING #180 mL 10/02/22 [Rx Last Taken Unknown] amlodipine 5 mg tablet 2.5 mg PO DAILY 01/31/23 [History Last Taken 04/23/23] cranberry fruit concentrate 250 mg chewable tablet (Azo Cranberry) 250 mg PO DAILY 01/31/23 [History Last Taken Unknown] spironolactone 25 mg tablet 25 mg PO 1700 01/31/23 [History Last Taken Unknown] budesonide 0.5 mg/2 mL suspension for nebulization 0.5 mg inhalation Q12H 04/21/23 [History Last Taken Unknown] hydrocodone-acetaminophen 5-325mg 5mg-325mg 1 tab PO Q6H PRN PRN Pain 3 days #10 TABLETS 06/19/23 [Rx Last Taken Unknown] Allergy/AdvReac Type Severity Reaction Status Date / Time latex Allergy Unknown PT UNSURE Verified 06/19/23 12:34 OF REACTION adhesive Allergy Unknown Verified 06/19/23 12:34 benzocaine [From Cetacaine] Allergy Unknown Verified 06/19/23 12:34 butamben [From Cetacaine] Allergy Unknown Verified 06/19/23 12:34 cortisone [Cortisone] Allergy Unknown Verified 06/19/23 12:34 dipyridamole [From Aggrenox] Allergy Unknown Verified 06/19/23 12:34 lansoprazole [From Prevacid] Allergy Unknown Verified 06/19/23 12:34 meclizine Allergy Unknown Verified 06/19/23 12:34 methylprednisolone acetate Allergy Angioedema Verified 06/19/23 12:34 [From Depo-Medrol] metoprolol Allergy Unknown Verified 06/19/23 12:34 omeprazole [From Prilosec] Allergy Unknown Verified 06/19/23 12:34 omeprazole magnesium Allergy Unknown Verified 06/19/23 12:34 [From Prilosec] oxybutynin chloride Allergy Unknown Verified 06/19/23 12:34 [From Ditropan] povidone-iodine Allergy Unknown Verified 06/19/23 12:34 [From Betadine] sulfamethoxazole Allergy Unknown Verified 06/19/23 12:34 [From Bactrim] tegaserod [From Zelnorm] Allergy Hives Verified 06/19/23 12:34 tegaserod hydrogen maleate Allergy Unknown Verified 06/19/23 12:34 [From Zelnorm] tetracaine [From Cetacaine] Allergy Unknown Verified 06/19/23 12:34 tolterodine tartrate Allergy Unknown Verified 06/19/23 12:34 [From Detrol] trimethoprim [From Bactrim] Allergy Unknown Verified 06/19/23 12:34 lisinopril AdvReac Intermediate Angioedema Verified 06/19/23 12:34 adhesive tape AdvReac Rash Verified 06/19/23 12:34 codeine AdvReac Unknown Verified 06/19/23 12:34 mirabegron [From Myrbetriq] AdvReac Other Verified 06/19/23 12:34 tizanidine AdvReac Other Verified 06/19/23 12:34 vaccine adjuvant system, AdvReac Rash Verified 06/19/23 12:34 [id number] liposomal [From Shingrix (PF)] varicella-zoster virus AdvReac Rash Verified 06/19/23 12:34 glycoprotein E, recombinant [From Shingrix (PF)] Family History Mother Cancer Celiac disease Presence of permanent cardiac pacemaker Father Cancer Sister Hypertension Other Colon cancer Myocardial infarction Surgical History H/O hernia repair History of back surgery History of cholecystectomy History of esophagogastroduodenoscopy (EGD) History of laparotomy History of Robbie fundoplication History of tonsillectomy Hx of cardiac cath Hx of colonoscopy Hx of dilation and curettage hx of filter removal Hx of local excision of skin lesion Hx of superior vena cava filter placement Hx of tubal ligation S/P gastroplasty Social History Smoking Status: Never smoker alcohol intake: never substance use type: does not use caffeine: Yes Type: coffee Number of servings: 2 what type of physical activity do you participate in: walking frequency: 3-4 times per week ROS ROS ED Constitutional Constitutional ED: Denies chills, fever(s) or weight loss Eyes Eyes: Denies change in vision or diplopia ENT ENT ED: Denies ear pain, rhinorrhea or sore throat Cardiovascular Cardiovascular: Denies chest pain, orthopnea, palpitations or racing heartbeat Respiratory/Chest Respiratory/Chest: Denies cough, dyspnea or orthopnea Gastrointestinal Gastrointestinal: Denies abdominal pain, diarrhea, nausea or vomiting Genitourinary Genitourinary ED: Denies dysuria, hematuria or urinary frequency Musculoskeletal Musculoskeletal: Reports back pain; Denies arthralgias, myalgias or neck pain Integumentary Denies abscess or rash Neurologic Neurologic: Denies headache(s) or weakness Psychiatric Psychiatric: Denies anxiety, depression, suicidal ideation or suicidal thoughts Endocrine Endocrinology: Denies polydipsia, polyphagia or polyuria Allergic/Immunologic Allergic/Immunologic ED: Denies mouth swelling, tongue swelling or urticaria EXAM Physical Exam Const Vital Signs: 06/19/23 12:33 06/19/23 12:34 Temperature 96.3 F L Temperature Source Temporal Pulse Rate 84 Respiratory Rate 16 Respiratory Effort Normal Respiratory Depth Normal Respiratory Pattern Normal Blood Pressure 151/90 H Blood Pressure Mean 110 Pulse Ox 95 Oxygen Delivery Method Room Air Room Air Positive well nourished, well developed and obese General Appearance ED: well developed Nutritional Appearance: obese HEENT Reports normocephalic, head/scalp atraumatic and moist mucous membranes Eyes PERRL and EOMs intact bilaterally Neck no lymphadenopathy, supple and no JVD Resp normal respiratory effort and clear to auscultation bilaterally Cardio regular rate, regular rhythm and no murmurs GI normal to inspection, nondistended, normoactive bowel sounds and non-tender Palpation: soft Back/Spine no CVA tenderness and normal ROM Back/Spine Narrative: Well-healed surgical scars the lumbar region. The patient does not demonstrate any erythema or swelling or tissue texture changes suggest underlying infection. Paraspinal musculature is tender to palpation. Extremity normal to inspection General Extremety ED: Negative for edema General Extremity: Negative for edema Neuro oriented x3 and CN's II-XII intact bilaterally Neuro Narrative: +2 patellar and Achilles reflexes bilaterally Sensorium / Orientation: alert Sensory Exam: No sensory level loss detected Motor Exam: strength 5/5 throughout Psych mental status grossly normal Mood & Affect: Negative for depressed or tearful Skin no rashes or lesions noted and no wounds MDM MDM MDM Narrative Medical decision making narrative: Differential diagnosis includes but not limited to lumbar compression fracture versus other fracture, surgical hardware complications, nerve impingement, infection, worsening degenerative changes. CT of the lumbar spine was obtained. There is no acute compression fracture. I do not see any screws in the midline where the patient is stating a screw is hurting her. Clinically this seems more of a radiculopathy. Would recommend rest conservative treatment and follow-up with her surgeon. I am not seeing any acute neurologic deficits. Patient currently takes gabapentin at night. She has been having difficulty with constipation and has been treating with appropriate MiraLAX Colace to relax. I will write for a few [facility] patient needs to be very mindful of its effects especially with constipation. I will provide her with back surgeon information for follow-up if needed. Her prior surgeon Dr. Whitman in [place] is no longer there. History & Record Review Discussion w/independent historian: Patient Radiography Diagnostic Testing: Clinical Impression(s) from Imaging Studies Lumbar Spine CT 06/19/23 12:56 IMPRESSION: Status post L5-S1 pedicle screw fixation. Anterolisthesis of L4 on L5 with the moderate degree of central canal and bilateral neural foraminal stenosis. Electronically Signed: Venkata Singer MD at 13:34 EDT , Discharge Plan Triage Chief Complaint: Fall ED Provider: Stew Garza Dx/Rx/DC Orders Clinical Impression: Acute lumbar radiculopathy, DDD (degenerative disc disease), lumbar, Acute lumbar myofascial strain Instructions: ED Back Sprain/Strain, ED Degenerative Disk Disease Prescriptions: New hydrocodone-acetaminophen [hydrocodone-acetaminophen] 5-325 mg tablet 1 tab PO Q6H PRN PRN (Reason: Pain) 3 Days Qty: 10 0RF No Action multivitamin Tablet 1 tab PO DAILY Systane Nighttime 94-3 % ointment 1 applic OPHTHALMIC QHS diazepam 5 mg tablet 5 mg PO QHS PRN (Reason: anxiety) (DME) BreatheRite MDI Spacer Spacer See Rx Instructions .ROUTE .MEDSUPPLY Qty: 1 0RF Rx Instructions: As directed cholecalciferol (vitamin D3) 125 mcg (5,000 unit) capsule 125 mcg PO DAILY ipratropium-albuterol 0.5 mg-3 mg(2.5 mg base)/3 mL solution for nebulization 3 ml inhalation Q4H PRN PRN (Reason: SOB &/OR WHEEZING) Qty: 180 11RF levothyroxine 88 mcg tablet 88 mcg PO DAILY amlodipine 5 mg tablet 2.5 mg PO DAILY Azo Cranberry 250 mg tablet,chewable 250 mg PO DAILY spironolactone 25 mg tablet 25 mg PO 1700 gabapentin 100 MG capsule 300 mg PO QHS aspirin 81 MG tablet 81 mg PO DAILY@0800 acetaminophen 500 mg Capsule 500 mg PO Q6H PRN (Reason: Pain) budesonide 0.5 mg/2 mL suspension for nebulization 0.5 mg inhalation Q12H Patient Comments: USE 1 VIAL IN NEBULIZER TWICE DAILY Primary Care Provider: Miryam Riojas Referrals: Carlin Grover MD [Med Staff - Active Staff] - As Needed (for spine surgical evaluation) Miryam Riojas MD [Primary Care Provider] - 1 Week if not improving Activity Restrictions/Additional Instructions: Please be mindful of your constipation and note that all pain medication is constipating. Only take the pain medication if you truly needed Disposition Disposition: Home, Self Care
[2023-06-19 14:00] VITALS: BP 130/66; PULSE 78; RESP 16; TEMP 36.4; O2SAT 99
== END 2023-06-19 14:09 | disposition home or self-care (01) ==
PROVIDERS: Emergency Provider Emergency Medicine; PCP Internal Medicine; Visit Provider Emergency Medicine
DX: S39.012A Strain of muscle, fascia and tendon of lower back, initial encounter (principal); M51.16 Intervertebral disc disorders with radiculopathy, lumbar region; W19.XXXA Unspecified fall, initial encounter; R32 Unspecified urinary incontinence; Z98.1 Arthrodesis status; I25.10 Atherosclerotic heart disease of native coronary artery without angina pectoris; K21.9 Gastro-esophageal reflux disease without esophagitis; E66.9 Obesity, unspecified; I10 Essential (primary) hypertension
CPT/HCPCS: 72131; 99282

== ENCOUNTER → 2023-07-24 | Outpatient (CLI) | payer MEDICARE, BC, SELFPAY ==
--- NOTE | 2023-07-24 15:21 | MRI_ITS ---
STUDY: MRI LUMBAR SPINE WITHOUT CONTRAST REASON FOR EXAM: Female, 73 years old. Pain TECHNIQUE: Standardized fat and water weighted pulse sequences were obtained in the sagittal and axial planes. COMPARISON: 05/23/2015, x-ray 07/03/2023 FINDINGS: T12-L1: No change in a small central disc osteophyte complex which produces mild spinal stenosis but no neural foraminal stenosis. Normal lumbar lordosis. Mild levoscoliosis centered at L1. Normal conus medullaris that terminates at the T12/L1. L1-2: Enlarging central disc protrusion which is now moderate in size produces moderate spinal stenosis but no neural foraminal stenosis. L2-3: Mild bilateral facet hypertrophy and moderate ligament flavum hypertrophy. No change in the mild bilateral disc protrusion which produces mild spinal stenosis and mild right neural foraminal stenosis. L3-4: Normal endplates. Normal disc height, hydration and morphology. Normal bilateral facet joints. Normal central canal and bilateral lateral recesses. Normal bilateral intervertebral neural foramina. L4-5: Severe bilateral facet hypertrophy and moderate ligament flavum hypertrophy. Interval development of 5 mm of anterolisthesis of L4 on L5 with a moderate broad disc protrusion produces severe spinal stenosis, moderate right neural foraminal stenosis with abutment of the right L4 nerve root and severe left neural foraminal stenosis with effacement of the left L4 nerve root. L5-S1: Status post discectomy, interbody fusion, transpedicular fixation with anatomic alignment and no spinal stenosis or neural foraminal stenosis. Normal visualized sacral ala. Normal visualized paraspinous soft tissue structures. MRI/Spine Lumbar (Routine) IMPRESSION: Worsening degenerative disc disease particularly at L4/L5 as described above. Electronically Signed: Bradford Cornejo MD at 16:51 EDT ,
== END | disposition home or self-care (01) ==
LOC: MRI 15:08
PROVIDERS: PCP Internal Medicine; Referring Provider Orthopaedic Surgery Orthopaedic Surgery of the Spine; Visit Provider Orthopaedic Surgery Orthopaedic Surgery of the Spine
DX: M43.16 Spondylolisthesis, lumbar region (principal)
CPT/HCPCS: 72148

== ENCOUNTER 2023-11-18 18:05 | Emergency (ER) | payer MEDICARE, BC, SELFPAY ==
[2023-11-18 18:05] VITALS: BP 140/82; PULSE 81; RESP 18; TEMP 36.8; O2SAT 97
--- NOTE | 2023-11-18 18:30 | RAD_ITS ---
INDICATION: Trauma, fall, injury EXAMINATION/TECHNIQUE: X-RAY - LEFT XR Knee Complete 4 Views or More 4 VIEWS COMPARISON: 05/05/2022 FINDINGS: SOFT TISSUES: No soft tissue swelling or gas. No radiopaque foreign body. BONES/JOINTS: No acute fracture. Joint spaces anatomically aligned with stable mild tricompartmental degenerative changes. No sclerotic or destructive changes observed. RAD/Knee 4 or More Views IMPRESSION: No acute bony abnormality. Electronically Signed: Edilberto Jurado MD at 19:11 EDT ,
[2023-11-18 21:46] VITALS: BP 167/84; PULSE 86; RESP 16; O2SAT 97
--- NOTE | 2023-11-18 21:59 | ED.VIS.FALL ---
HPI HPI - Fall History of Present Illness Chief Complaint: Fall Narrative Narrative: 73-year-old female presents with her daughter because of injury to her left knee that she sustained when she was at the gas station and had fallen on uneven pavement. Daughter relates history that the wheel had fallen off the axle in their car. She had removed everything from the vehicle, but her mother went to go check, and she stepped on uneven pavement and twisted her left knee. Patient has chronic knee pain and neuropathy for which she takes gabapentin. They state that she had her medial meniscus cartilage removed remotely, and has [id number] arthritis in her left knee anyway. She sustained a bruise to her left lateral knee and now has pain with weightbearing and walking. She denies hitting her head or loss of consciousness, or other injury. She does have history of chronic back pain. She sees Dr. Grover as her spine surgeon. [facility] Medical History Loss of hearing Wears glasses Wears partial dentures Post-menopausal Anxiety Thyroid disease Ambulates with cane Urinary incontinence Difficulty swallowing Gastric reflux Non-smoker History of echocardiogram History of stress test Seasonal allergies Hoarseness Leg cramps History of edema Shortness of breath on exertion Cardiology follow-up encounter History of cataract Ganglion cyst Atherosclerotic heart disease of [place] coronary artery without angina pectoris Cholelithiasis with chronic cholecystitis Cholecystitis Pancreatitis, gallstone Gallstones Pancreatitis Dysmetabolic syndrome X DVT (deep venous thrombosis) Barretts esophagus Hypothyroidism Fibromyalgia History of DVT (deep vein thrombosis) Essential hypertension Segmental and somatic dysfunction of pelvic region Segmental and somatic dysfunction of lumbar region Segmental and somatic dysfunction of thoracic region DDD (degenerative disc disease), lumbar History of atrial dilatation PAD (peripheral artery disease) TIA (transient ischemic attack) Osteoarthritis GERD (gastroesophageal reflux disease) IBS (irritable bowel syndrome) Cataracts, bilateral Arthritis Anemia Environmental allergies Home Medications ?Medication ?Instructions ?Recorded ?Last Taken ?Type gabapentin 100 mg capsule 300 mg PO QHS 01/11/14 05/05/22 History diazepam 5 mg tablet 5 mg PO QHS PRN anxiety 01/13/19 05/05/22 History aspirin 81 mg tablet,delayed 81 mg PO DAILY@0800 02/09/19 05/05/22 History release multivitamin 1 tab PO DAILY 04/08/19 05/05/22 History cholecalciferol (vitamin D3) 125 125 mcg PO DAILY 10/11/19 05/05/22 History mcg (5,000 unit) capsule inhalational spacing device #1 ea 10/11/19 Unknown Rx (BreatheRite MDI Spacer) acetaminophen 500 mg capsule 500 mg PO Q6H PRN Pain 05/05/22 Unknown History levothyroxine 88 mcg tablet 88 mcg PO DAILY 07/26/22 04/23/23 History ipratropium 0.5 mg-albuterol 3 mg 3 ml inhalation Q4H PRN PRN SOB 10/02/22 Unknown Rx (2.5 mg base)/3 mL nebulization &/OR WHEEZING #180 mL soln amlodipine 5 mg tablet 2.5 mg PO DAILY 01/31/23 04/23/23 History cranberry fruit concentrate 250 mg 250 mg PO DAILY 01/31/23 Unknown History chewable tablet (Azo Cranberry) lactulose 20 gram/30 mL oral 20 g (30 mL) PO QHS 90 days #2,700 08/15/23 Unknown Rx solution mL pantoprazole 40 mg tablet,delayed 40 mg PO BID 90 days #180 tabs 08/15/23 Unknown Rx release spironolactone 25 mg tablet 25 mg PO 1700 PRN 08/15/23 Unknown History budesonide 0.5 mg/2 mL suspension 0.5 mg (2 mL) inhalation Q12H #120 10/15/23 Unknown Rx for nebulization mL Allergy/AdvReac Type Severity Reaction Status Date / Time latex Allergy Unknown PT UNSURE Verified 11/18/23 18:07 OF REACTION adhesive Allergy Unknown Verified 11/18/23 18:07 benzocaine (From Cetacaine) Allergy Unknown Verified 11/18/23 18:07 butamben (From Cetacaine) Allergy Vomiting Verified 11/18/23 18:07 cortisone (Cortisone) Allergy Unknown Verified 11/18/23 18:07 dipyridamole (From Aggrenox) Allergy Unknown Verified 11/18/23 18:07 lansoprazole (From Prevacid) Allergy Unknown Verified 11/18/23 18:07 meclizine Allergy Unknown Verified 11/18/23 18:07 methylprednisolone acetate Allergy Angioedema Verified 11/18/23 18:07 (From Depo-Medrol) metoprolol Allergy Unknown Verified 11/18/23 18:07 omeprazole (From Prilosec) Allergy Unknown Verified 11/18/23 18:07 omeprazole magnesium (From Allergy Unknown Verified 11/18/23 18:07 Prilosec) oxybutynin chloride (From Allergy Unknown Verified 11/18/23 18:07 Ditropan) povidone-iodine (From Allergy Unknown Verified 11/18/23 18:07 Betadine) sulfamethoxazole (From Allergy Unknown Verified 11/18/23 18:07 Bactrim) tegaserod (From Zelnorm) Allergy Hives Verified 11/18/23 18:07 tegaserod hydrogen maleate Allergy Unknown Verified 11/18/23 18:07 (From Zelnorm) tetracaine (From Cetacaine) Allergy Unknown Verified 11/18/23 18:07 tolterodine tartrate (From Allergy Unknown Verified 11/18/23 18:07 Detrol) trimethoprim (From Bactrim) Allergy Unknown Verified 11/18/23 18:07 lisinopril AdvReac Intermediate Angioedema Verified 11/18/23 18:07 adhesive tape AdvReac Rash Verified 11/18/23 18:07 codeine AdvReac Unknown Verified 11/18/23 18:07 mirabegron (From Myrbetriq) AdvReac Other Verified 11/18/23 18:07 tizanidine AdvReac Other Verified 11/18/23 18:07 vaccine adjuvant system, AdvReac Rash Verified 11/18/23 18:07 [id number] liposomal (From Shingrix (PF)) varicella-zoster virus AdvReac Rash Verified 11/18/23 18:07 glycoprotein E, recombinant (From Shingrix (PF)) Family History Mother Cancer Celiac disease Presence of permanent cardiac pacemaker Father Cancer Sister Hypertension Other Colon cancer Myocardial infarction Surgical History History of back surgery History of cholecystectomy Hx of dilation and curettage Hx of cardiac cath History of Robbie fundoplication S/P gastroplasty History of laparotomy Hx of tubal ligation hx of filter removal Hx of superior vena cava filter placement Hx of local excision of skin lesion History of esophagogastroduodenoscopy (EGD) Hx of colonoscopy H/O hernia repair History of tonsillectomy Social History Smoking Status: Never smoker alcohol intake: never substance use type: does not use caffeine: Yes Type: coffee Number of servings: 2 what type of physical activity do you participate in: walking frequency: 3-4 times per week ROS ROS ED ROS Narrative Constitutional: No fever, no chills. HEENT: No sore throat. No neck pain. No loss of vision. No rhinorrhea. Cardiovascular: No chest pain. No palpitations. No pedal edema. Respiratory: No cough, no shortness of breath. Abdominal: No abdominal pain. No nausea. No vomiting. Genitourinary: No dysuria. No hematuria. Musculoskeletal: No myalgias. Positive left knee pain worse with movement. Neurologic: No headaches. No dizziness. No lightheadedness. Skin: No rash. No change in color. Psychiatric: No depression. No anxiety. EXAM Physical Exam Narrative Exam Narrative: GCS 15. ABCs intact. Regular rate and rhythm. Lungs clear to auscultation bilaterally. Abdomen soft and nontender with normoactive bowel sounds. Pelvis stable. Positive ecchymosis left lateral patella. No crepitance. Flexion extension of left knee intact. Able to lift leg off bed with only mild difficulty. She appears neurovascular intact with EHL intact on the left. Palpable dorsalis pedis pulse. Const Vital Signs: 11/18/23 18:05 11/18/23 21:46 11/18/23 21:46 Temperature 98.2 F Temperature Source Temporal Pulse Rate 81 86 Respiratory Rate 18 16 Respiratory Effort Normal Respiratory Depth Normal Respiratory Pattern Normal Blood Pressure 140/82 H 167/84 H Blood Pressure Mean 101 111 Pulse Ox 97 97 Oxygen Delivery Method Room Air Room Air Room Air MDM MDM MDM Narrative Medical decision making narrative: Concern is for tibial plateau fracture versus patellar fracture versus knee contusion with knee sprain. Patient states that she is here because she wanted to make sure that it was not cracked or broken. X-rays were obtained of the left knee per nursing protocol and interpreted by myself independently. There is no evidence of an acute fracture. I reviewed the radiology report which confirms my independent interpretation and states there is no acute bony abnormality. At this point in time, I did offer her a fresh ice pack but she declined stating she has 3 at home. I also offered her a stronger pain medication here but she declined, stating that she gets sick on Vicodin. She was given a gram of Tylenol orally here and placed in an Luis wrap. She will continue ice and elevation at home. She states she has a walker at home as well so she was encouraged to use this to help her ambulate. She already sees an orthopedic surgeon for her back [facility] She will follow-up with him in the next few days, within a week. I feel she can be discharged safely home with follow-up. Return instructions to the emergency department were reviewed. Patient and daughter agreeable to the plan. Disposition is discharged home in stable condition. History & Record Review Discussion w/independent historian: Patient and Family (Daughter) Radiography X-Ray: Read by ED Physician, Read by Radiologist, Normal and No Fracture Diagnostic Testing: Clinical Impression(s) from Imaging Studies Knee X-Ray 11/18/23 18:30 IMPRESSION: No acute bony abnormality. Electronically Signed: Edilberto Jurado MD at 19:11 EDT , Discharge Plan Triage Chief Complaint: Fall ED Provider: Roque Ho Dx/Rx/DC Orders Clinical Impression: Fall, Contusion of left knee, Injury of knee, left Instructions: ED Bandage Elastic Wrap, ED Contusion, Lower Extremity, ED Mechanical Fall Prescriptions: No Action multivitamin Tablet 1 tab PO DAILY diazepam 5 mg tablet 5 mg PO QHS PRN (Reason: anxiety) (DME) BreatheRite MDI Spacer Spacer See Rx Instructions .ROUTE .MEDSUPPLY Qty: 1 0RF Rx Instructions: As directed cholecalciferol (vitamin D3) 125 mcg (5,000 unit) capsule 125 mcg PO DAILY ipratropium-albuterol 0.5 mg-3 mg(2.5 mg base)/3 mL solution for nebulization 3 ml inhalation Q4H PRN PRN (Reason: SOB &/OR WHEEZING) Qty: 180 11RF levothyroxine 88 mcg tablet 88 mcg PO DAILY amlodipine 5 mg tablet 2.5 mg PO DAILY Azo Cranberry 250 mg tablet,chewable 250 mg PO DAILY spironolactone 25 mg tablet 25 mg PO 1700 PRN budesonide 0.5 mg/2 mL suspension for nebulization 0.5 mg inhalation Q12H Qty: 120 11RF lactulose 20 gram/30 mL solution 20 g PO QHS 90 Days Qty: 2700 2RF Rx Instructions: Take 30ml by mouth every night. pantoprazole 40 mg tablet,delayed release (DR/EC) 40 mg PO BID 90 Days Qty: 180 2RF gabapentin 100 MG capsule 300 mg PO QHS aspirin 81 MG tablet 81 mg PO DAILY@0800 acetaminophen 500 mg Capsule 500 mg PO Q6H PRN (Reason: Pain) Stand Alone Forms: ED Work / School Excuse Primary Care Provider: Miryam Riojas Referrals: Miryam Riojas MD [Primary Care Provider] - 3-5 Days if not improving Activity Restrictions/Additional Instructions: Continue ice and elevation of left knee when possible. Use your walker to help you ambulate. Follow-up with orthopedics, Dr. Grover, who you already see for your back. Print Language: Welsh Disposition Disposition: Home, Self Care
[2023-11-18] MEDS: Acetaminophen 500 MG Tablet 1000 MG PO (22:02)
[2023-11-18 22:13] VITALS: BP 155/75; PULSE 75; RESP 18; TEMP 36.4; O2SAT 99
== END 2023-11-18 22:14 | disposition home or self-care (01) ==
LOC: ED 22:02
PROVIDERS: Emergency Provider Emergency Medicine; PCP Internal Medicine; Visit Provider Emergency Medicine
DX: S80.02XA Contusion of left knee, initial encounter (principal); M17.12 Unilateral primary osteoarthritis, left knee; G89.29 Other chronic pain; I25.10 Atherosclerotic heart disease of native coronary artery without angina pectoris; I10 Essential (primary) hypertension; W01.0XXA Fall on same level from slipping, tripping and stumbling without subsequent striking against object, initial encounter; K21.9 Gastro-esophageal reflux disease without esophagitis
CPT/HCPCS: 73564; 99282

== ENCOUNTER → 2024-04-08 | Outpatient (CLI) | payer MEDICARE, BC, SELFPAY ==
--- NOTE | 2024-04-08 09:30 | MRI_ITS ---
STUDY: MR ENTEROGRAPHY WITH CONTRAST REASON FOR EXAM: Female, 74 years old. R19.7 - Diarrhea, unspecified TECHNIQUE: Multipulse sequence MRI performed with IV contrast according to standard MR enterography protocol following administration of oral contrast for maximal bowel distention. Images were obtained from the dome of the diaphragm to the symphysis pubis. 19ML IV CLARISCN was administered intravenously. TECHNICAL QUALITY: Image Quality: Satisfactory Small Bowel Distension: Adequate. COMPARISON: Right upper quadrant ultrasound and 03/09/2018.. FINDINGS: Bowel: Bowel wall thickening: Absent. Skip lesions: None. Vascularity: Normal. Enhancement: Normal. Fistula: None. Abscess: None. Other Findings: The visualized lung bases are unremarkable. The visualized portions of the heart are within normal limits. Normal liver. Prior cholecystectomy. Normal spleen. Normal pancreas. Normal bilateral adrenal glands. Multiple small nonenhancing simple cysts are present throughout the right kidney. A few cysts are also present on the left. No visualized renal masses or malignant process. No hydronephrosis is present. No follow-up imaging of these cysts are required. There is a small hiatal hernia. Normal small intestine. Normal colon. No visualized bowel dilatation or obstruction. No inflammatory stranding is seen. No bowel masses are present. No visualized bowel wall thickening or abnormal fistulous connection with the bowel loops or adjacent structures. There is diffuse atherosclerotic calcification of the abdominal aorta, without a demonstrated aneurysm. Normal inferior vena cava. Normal retroperitoneum. Normal urinary bladder. Several small uterine fibroids are present. The adnexa is unremarkable. Chronic postoperative changes of the anterior abdominal wall from prior surgical intervention. There are diffuse degenerative changes of the visualized lumbar spine. MRI/Enterography Abd/Pel IMPRESSION: 1. Normal MR enterography. 2. Small hiatal hernia. 3. Normal small intestine. Normal colon. No visualized bowel dilatation or obstruction. No inflammatory stranding is seen. No bowel masses are present. No visualized bowel wall thickening or abnormal fistulous connection with the bowel loops or adjacent structures. MR enterography References: Active bowel inflammation causes restricted diffusion on diffusion-weighted images which appears as bright signal. Electronically Signed: Lawson Parsons MD at 12:44 EST ,
[2024-04-08 09:50] VITALS: BP 135/67; PULSE 67; RESP 18; O2SAT 94; BMI 34.3
[2024-04-08] MEDS: 0.9% Saline Lock 10 ML Syringe IV (10:00)
[2024-04-08] MEDS: Glucagon 1 MG/ML Syringe IV (11:06)
[2024-04-08 11:36] VITALS: BP 168/84; PULSE 78; RESP 18; O2SAT 96
== END | disposition home or self-care (01) ==
LOC: MRI 09:01
PROVIDERS: PCP Internal Medicine; Referring Provider Internal Medicine Gastroenterology; Visit Provider Internal Medicine Gastroenterology
DX: R19.7 Diarrhea, unspecified (principal); R10.13 Epigastric pain
CPT/HCPCS: 74183; 96374; A9575; A4216; J1610

== ENCOUNTER → 2024-05-26 | Outpatient (CLI) | payer MEDICARE, BC, SELFPAY ==
--- NOTE | 2024-05-26 10:17 | RAD_ITS ---
PROCEDURE: SHOULDER MIN 2 VIEWS REASON FOR EXAM: Left shoulder pain. Limited range of motion. TECHNIQUE: Four views of the left shoulder were obtained. COMPARISON: Comparison is made with prior study dated June 17, 2020. FINDINGS: Left SHOULDER: No fracture. No suspicious bone lesion. Moderate degree of joint space of the glenohumeral joint. Degenerative changes of the acromioclavicular joint. Irregularity of the greater tuberosity is suggestive of possible old Hill-Sachs deformity. Soft tissues are unremarkable. RAD/Shoulder min 2 Views IMPRESSION: DEGENERATIVE OSTEOARTHROSIS. NO ACUTE FINDINGS. Findings suggestive of old Hill-Sachs deformity of the greater tuberosity of th e proximal left humerus. [facility]
== END | disposition home or self-care (01) ==
LOC: RAD 10:12
PROVIDERS: PCP Internal Medicine; Referring Provider Anesthesiology Pain Medicine; Visit Provider Anesthesiology Pain Medicine
DX: M25.512 Pain in left shoulder (principal)
CPT/HCPCS: 73030

== ENCOUNTER 2024-08-22 15:17 | Emergency (ER) | payer MEDICARE, BC, SELFPAY ==
[2024-08-22 15:18] VITALS: BP 154/77; PULSE 78; RESP 17; TEMP 36.9; O2SAT 97
[2024-08-22 15:25] VITALS: BMI 36.3
--- NOTE | 2024-08-22 16:01 | EX.ED.DYSGE1 ---
HPI History of Present Illness Chief Complaint: Weakness Informant: patient and family Narrative Narrative: 74-year-old female with left back and posterior hip/buttock pain that radiates into her left thigh, this has been going on for some time so she had another back injection with pain management Dr. Paz 3 days ago, then she worked yesterday and was on her feet all day, pain gradually became worse, now is to the point where she is having trouble bearing weight and walking on it. She denies any new symptoms. No bowel or bladder dysfunction. No numbness. She has chronic peripheral neuropathy in her feet that feels like burning pain but not numb. That is no different. She states that she puts pressure on a point in her left buttock, it relieves the pain until she lets go. She denies any fevers or chills. She is on no anticoagulants just baby aspirin. [facility] Medical History Loss of hearing Wears glasses Wears partial dentures Post-menopausal Anxiety Thyroid disease Ambulates with cane Urinary incontinence Difficulty swallowing Gastric reflux Non-smoker History of echocardiogram History of stress test Seasonal allergies Hoarseness Leg cramps History of edema Shortness of breath on exertion Cardiology follow-up encounter History of cataract Ganglion cyst Atherosclerotic heart disease of [place] coronary artery without angina pectoris Cholelithiasis with chronic cholecystitis Cholecystitis Pancreatitis, gallstone Gallstones Pancreatitis Dysmetabolic syndrome X DVT (deep venous thrombosis) Barretts esophagus Hypothyroidism Fibromyalgia History of DVT (deep vein thrombosis) Essential hypertension Segmental and somatic dysfunction of pelvic region Segmental and somatic dysfunction of lumbar region Segmental and somatic dysfunction of thoracic region DDD (degenerative disc disease), lumbar History of atrial dilatation PAD (peripheral artery disease) TIA (transient ischemic attack) Osteoarthritis GERD (gastroesophageal reflux disease) IBS (irritable bowel syndrome) Cataracts, bilateral Arthritis Anemia Environmental allergies Home Medications ?Medication ?Instructions ?Recorded ?Last Taken ?Type gabapentin 100 mg capsule 300 mg PO QHS 01/11/14 05/05/22 History diazepam 5 mg tablet 5 mg PO QHS PRN anxiety 01/13/19 05/05/22 History aspirin 81 mg tablet,delayed 81 mg PO DAILY@0800 02/09/19 05/05/22 History release multivitamin 1 tab PO DAILY 04/08/19 05/05/22 History cholecalciferol (vitamin D3) 125 125 mcg PO DAILY 10/11/19 05/05/22 History mcg (5,000 unit) capsule inhalational spacing device #1 ea 10/11/19 Unknown Rx (BreatheRite MDI Spacer) acetaminophen 500 mg capsule 500 mg PO Q6H PRN Pain 05/05/22 Unknown History levothyroxine 88 mcg tablet 88 mcg PO DAILY 07/26/22 04/23/23 History ipratropium 0.5 mg-albuterol 3 mg 3 ml inhalation Q4H PRN PRN SOB 10/02/22 Unknown Rx (2.5 mg base)/3 mL nebulization &/OR WHEEZING #180 mL soln amlodipine 5 mg tablet 2.5 mg PO DAILY 01/31/23 04/23/23 History cranberry fruit concentrate 250 mg 250 mg PO DAILY 01/31/23 Unknown History chewable tablet (Azo Cranberry) pantoprazole 40 mg tablet,delayed 40 mg PO BID 90 days #180 tabs 08/15/23 Unknown Rx release spironolactone 25 mg tablet 25 mg PO 1700 PRN 08/15/23 Unknown History budesonide 0.5 mg/2 mL suspension 0.5 mg (2 mL) inhalation Q12H #120 10/15/23 Unknown Rx for nebulization mL hydrocortisone 2.5 % topical cream 1 applic topical QDAY 12/01/23 Unknown History with perineal applicator lactulose 20 gram/30 mL oral 20 g (30 mL) PO QHS 90 days #2,700 02/20/24 Unknown Rx solution mL benzonatate 100 mg capsule 100 - 200 mg PO TID PRN cough 03/12/24 Unknown History oxycodone-acetaminophen 5 mg-325 1 tab PO Q6H PRN PRN Pain 3 days 08/22/24 Unknown Rx mg tablet #12 TABLETS Allergy/AdvReac Type Severity Reaction Status Date / Time latex Allergy Unknown PT UNSURE Verified 08/22/24 15:21 OF REACTION adhesive Allergy Unknown Verified 08/22/24 15:21 benzocaine (From Cetacaine) Allergy Unknown Verified 08/22/24 15:21 butamben (From Cetacaine) Allergy Vomiting Verified 08/22/24 15:21 cortisone (Cortisone) Allergy Unknown Verified 08/22/24 15:21 dipyridamole (From Aggrenox) Allergy Unknown Verified 08/22/24 15:21 lansoprazole (From Prevacid) Allergy Unknown Verified 08/22/24 15:21 meclizine Allergy Unknown Verified 08/22/24 15:21 methylprednisolone acetate Allergy Angioedema Verified 08/22/24 15:21 (From Depo-Medrol) metoprolol Allergy Unknown Verified 08/22/24 15:21 omeprazole (From Prilosec) Allergy Unknown Verified 08/22/24 15:21 omeprazole magnesium (From Allergy Unknown Verified 08/22/24 15:21 Prilosec) oxybutynin chloride (From Allergy Unknown Verified 08/22/24 15:21 Ditropan) povidone-iodine (From Allergy Unknown Verified 08/22/24 15:21 Betadine) sulfamethoxazole (From Allergy Unknown Verified 08/22/24 15:21 Bactrim) tegaserod (From Zelnorm) Allergy Hives Verified 08/22/24 15:21 tegaserod hydrogen maleate Allergy Unknown Verified 08/22/24 15:21 (From Zelnorm) tetracaine (From Cetacaine) Allergy Unknown Verified 08/22/24 15:21 tolterodine tartrate (From Allergy Unknown Verified 08/22/24 15:21 Detrol) trimethoprim (From Bactrim) Allergy Unknown Verified 08/22/24 15:21 lisinopril AdvReac Intermediate Angioedema Verified 08/22/24 15:21 adhesive tape AdvReac Rash Verified 08/22/24 15:21 codeine AdvReac Unknown Verified 08/22/24 15:21 mirabegron (From Myrbetriq) AdvReac Other Verified 08/22/24 15:21 tizanidine AdvReac Other Verified 08/22/24 15:21 vaccine adjuvant system, AdvReac Rash Verified 08/22/24 15:21 [id number] liposomal (From Shingrix (PF)) varicella-zoster virus AdvReac Rash Verified 08/22/24 15:21 glycoprotein E, recombinant (From Shingrix (PF)) Family History Mother Cancer Celiac disease Presence of permanent cardiac pacemaker Father Cancer Sister Hypertension Other Colon cancer Myocardial infarction Surgical History History of back surgery History of cholecystectomy Hx of dilation and curettage Hx of cardiac cath History of Robbie fundoplication S/P gastroplasty History of laparotomy Hx of tubal ligation hx of filter removal Hx of superior vena cava filter placement Hx of local excision of skin lesion History of esophagogastroduodenoscopy (EGD) Hx of colonoscopy H/O hernia repair History of tonsillectomy Social History Smoking Status: Never smoker alcohol intake: never substance use type: does not use caffeine: Yes Type: coffee Number of servings: 2 what type of physical activity do you participate in: walking frequency: 3-4 times per week ROS ROS ED Constitutional Constitutional ED: Denies chills or fever(s) Gastrointestinal Gastrointestinal: Denies abdominal pain, constipation, fecal incontinence, nausea or vomiting Genitourinary Genitourinary ED: Reports other Details: no urinary retention ; Denies abdominal discomfort or urinary incontinence Musculoskeletal Musculoskeletal: Reports as per HPI and back pain; Denies neck pain Integumentary Denies rash or wounds Neurologic Neurologic: Denies headache(s), paresthesias or weakness EXAM Physical Exam Const Vital Signs: 08/22/24 15:18 08/22/24 15:26 Temperature 98.4 F Temperature Source Oral Pulse Rate 78 Respiratory Rate 17 Respiratory Effort Normal Non-Labored Respiratory Pattern Normal Blood Pressure 154/77 H Blood Pressure Mean 102 Pulse Ox 97 Oxygen Delivery Method Room Air Positive well nourished and well developed General Appearance ED: well developed and NAD HEENT Negative for trauma or tenderness Eyes PERRL and EOMs intact bilaterally Neck full ROM and supple GI normal to inspection, nondistended, normoactive bowel sounds, soft to palpation and non-tender Back/Spine normal to inspection Lumbar Spine / Lower Back: ROM limited, paraspinal muscle tenderness left and straight leg raise negative bilaterally; Negative for lumbar spinal tenderness Extremity normal to inspection, full ROM and no pedal edema Neuro oriented x3 and no sensory deficits noted Sensorium / Orientation: alert Motor Exam: strength 5/5 throughout and clonus absent Deep Tendon Reflexes: Rt Patellar (L4): 2+, Lt Patellar (L4): 2+, Rt Ankle (S1): 2+ and Lt Ankle (S1): 2+ Deep Tendon Reflexes Back: Rt Patellar (L4): 2+, Lt Patellar (L4): 2+, Rt Ankle (S1): 2+ and Lt Ankle (S1): 2+ Plantar Reflex: Downgoing: bilateral Psych mental status grossly normal and thought process normal Skin no rashes or lesions noted and no wounds MDM MDM MDM Narrative Medical decision making narrative: Patient does not have any symptoms or signs of cauda equina syndrome or conus medullaris syndrome.. Her exam is benign, her straight leg raises reproduce no radicular symptoms. She is limited by pain, not weakness/numbness. She states she has constipation with prescription analgesics. She is already taking MiraLAX. 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 I advised her that this is a problem that may need to be difficult to fix emergently, she does not have any criteria for an emergent MRI here, nor do I think necessarily what it showed the problem. I reviewed prior MRI last year that she had as an outpatient, breast she has severe spinal stenosis, L4-5 DDD that is fairly severe with facet arthritis, she indicates that is the area where she had the injection, that site is benign and no signs of infection there. My suspicion is that she does not have a complication of the injection, it is just that she was putting stress on her back soon after the injection and it probably has not worked yet. Advised to call her pain management doctor tomorrow in the meantime we will give her some analgesics and a prescription for some to use as needed, and advised increase her MiraLAX consumption. Discharge Plan Triage Chief Complaint: Weakness ED Provider: Deepak Mendez Dx/Rx/DC Orders Clinical Impression: Acute exacerbation of chronic low back pain, DDD (degenerative disc disease), lumbar, Lumbar spinal stenosis Instructions: ED Back Pain (Acute or Chronic) Prescriptions: New oxycodone-acetaminophen 5-325 mg tablet 1 tab PO Q6H PRN PRN (Reason: Pain) 3 Days Qty: 12 0RF No Action multivitamin Tablet 1 tab PO DAILY diazepam 5 mg tablet 5 mg PO QHS PRN (Reason: anxiety) (DME) BreatheRite MDI Spacer Spacer See Rx Instructions .ROUTE .MEDSUPPLY Qty: 1 0RF Rx Instructions: As directed cholecalciferol (vitamin D3) 125 mcg (5,000 unit) capsule 125 mcg PO DAILY ipratropium-albuterol 0.5 mg-3 mg(2.5 mg base)/3 mL solution for nebulization 3 ml inhalation Q4H PRN PRN (Reason: SOB &/OR WHEEZING) Qty: 180 11RF levothyroxine 88 mcg tablet 88 mcg PO DAILY amlodipine 5 mg tablet 2.5 mg PO DAILY Azo Cranberry 250 mg tablet,chewable 250 mg PO DAILY spironolactone 25 mg tablet 25 mg PO 1700 PRN budesonide 0.5 mg/2 mL suspension for nebulization 0.5 mg inhalation Q12H Qty: 120 11RF pantoprazole 40 mg tablet,delayed release (DR/EC) 40 mg PO BID 90 Days Qty: 180 2RF lactulose 20 gram/30 mL solution 20 g PO QHS 90 Days Qty: 2700 2RF Rx Instructions: Take 30ml by mouth every night. hydrocortisone 2.5 % cream with perineal applicator 1 applic topical QDAY benzonatate 100 mg capsule 100 - 200 mg PO TID PRN (Reason: cough) gabapentin 100 MG capsule 300 mg PO QHS aspirin 81 MG tablet 81 mg PO DAILY@0800 acetaminophen 500 mg Capsule 500 mg PO Q6H PRN (Reason: Pain) Primary Care Provider: Miryam Riojas Referrals: Crystal Paz MD [Med Staff - Active Staff] - As soon as possible Activity Restrictions/Additional Instructions: Increase your MiraLAX while taking the prescription pain medication 2-3 capfuls twice daily and drink plenty of water. Print Language: Nauruan Disposition Disposition: Home, Self Care
--- OUTSIDE RECORDS SUMMARY | 2024-08-22 16:04 | XMS RPT_ITS | CCD ---
Author Organization [facility] Care Team Providers Care Herbarium Worker Name Role Phone No director of student services, [place] Unavailable Unavailab le No director of student services, [place] Primary Care Provider Sunni ronakble Zeenat Sweeney CGC Unavailable Unavailable Quoc Diaz MD Unavailable Paulo Scott MD Primary Care Provider Dr. Paulo Scott Primary Care Provider Dr. Paulo Scott Referring Provider Debbie CORPORATE CONTROLLER, CORPORATE CONTROLLER-C Suzie Attending Provider Paulo Scott MD Primary Care Provider Paulo Scott MD Primary Care Provider Dr. Paulo Scott Primary Care Provider Dr. Paulo Scott Referring Provider Dr. Slim Park Attending Provider Dr. Ellie Mullins Emergency Provider Dr. Yuridia Bernabe Admit Provider Dr. Yuridia Bernabe Attending Provider Dr. Yuridia Bernabe Other Provider Dr. Shelia Campos Attending Provider Dr. Shelia Campos Other Provider Dr. Paulo Scott Primary Care Provider Dr. Paulo Scott Referring Provider LEONEL Ahumada Attending Provider Friend, Dr. Carter Attending Provider [phone] Debbie CORPORATE CONTROLLER, CORPORATE CONTROLLER-C Suzie Attending Provider Shine, Dr. Paulo Tony Primary Care Provider Dr. Paulo Scott Referring Provider Sameer CORPORATE CONTROLLER, CORPORATE CONTROLLER-C Ellen Attending Provider Friend, Dr. Carter Attending Provider [phone] Dr. Slim Park Attending Provider Friend, Dr. Carter Referring Provider [phone] Friend, Dr. Carter Other Provider [phone] Paulo Scott Primary Care Provider Shine, Dr. Paulo Tony Referring Provider Friend, Dr. Carter Attending Provider [phone] Dr. Slim Park Attending Provider Friend, Dr. Carter Referring Provider [phone] Friend, Dr. Carter Other Provider Paulo Scott MD Primary Care Provider Rodriguez MOLDING MACHINE SETTER.AIRPLANE DISPATCHER, Juan Unavailable Sumeet MOLDING MACHINE SETTER.RESIDENTIAL DIRECTOR, Norman Unavailable Sumeet MOLDING MACHINE SETTER.RESIDENTIAL DIRECTOR, Norman Unavailable RODRIGUEZ, JUAN Referring Unavailable TALAMPAS, PAULO D Primary Care Unavailable TALAMPAS, PAULO D Attending Unavailable TALAMPAS, PAULO D Primary Care Unavailable RODRIGUEZ, JUAN Attending Unavailable TALAMPAS, PAULO D Primary Care Unavailable TALAMPAS, PAULO D Referring Unavailable TALAMPAS, PAULO D Primary Care Unavailable NORMAN GARCIA Attending Unavailable TALAMPAS, PAULO D Primary Care Unavailable TALAMPAS, PAULO D Referring Unavailable TALAMPAS, PAULO D Primary Care Unavailable RODRIGUEZ, JUAN Attending Unavailable TALAMPAS, PAULO D Primary Care Unavailable NORMAN GARCIA Attending Unavailable TALAMPAS, PAULO D Primary Care Unavailable TALAMPAS, PAULO D Primary Care Unavailable TALAMPAS, PAULO D Primary Care Unavailable Татьянаampas , Dr. Paulo Tony Primary Care Provider Shine VARGAS, Dr. Paulo Tony Referring Provider Pennie RANDLE, Dr. Carter Attending Provider Dr. Callum Trimble DO Attending Provider Beverly VARGAS, Dr. Jordan Attending Provider Dr. Raul Casper DO Referring Provider Jackson VARGAS, Dr. Rojas Attending Provider Jackson VARGAS, Dr. Rojas Referring Provider Raul Casper Attending Unavailable Talampas, Paulo D Primary Care Unavailable Talampas, Paulo D Referring Unavailable Talampas, Paulo D Referring Unavailable Talampas, Paulo D Primary Care Unavailable Suzie Lewis NP Attending Unavailable Talampas, Paulo D Referring Unavailable Talampas, Paulo D Primary Care Unavailable BorrusoCallum Attending Unavailable Raul Casper Referring Unavailable Raul Casper Attending Unavailable Talampas, Paulo D Primary Care Unavailable Carlin Grover Referring Unavailable Carlin Grover Attending Unavailable Talampas, Paulo D Primary Care Unavailable Talampas, Paulo D Primary Care Unavailable Crystal Paz Referring Unavailable Crystal Paz Attending Unavailable Talampas, Paulo D Primary Care Unavailable Rqoue Ho Attending Unavailable Talampas, Paulo D Referring Unavailable Talampas, Paulo D Primary Care Unavailable BorCallum may Attending Unavailable Carlin Grover Attending Unavailable Talampas, Paulo D Primary Care Unavailable Talampas, Paulo D Referring Unavailable Talampas, Paulo D Primary Care Unavailable Talampas, Paulo D Referring Unavailable Callum Trimble Attending Unavailable Talampas, Paulo D Primary Care Unavailable Talampas, Paulo D Referring Unavailable BorrusoCallum Attending Unavailable Talampas, Paulo D Primary Care Unavailable Talampas, Paulo D Referring Unavailable Callum Trimble Attending Unavailable Talampas, Paulo D Primary Care Unavailable Talampas, Paulo D Referring Unavailable JeetruCallum molina Attending Unavailable Talampas, Paulo D Primary Care Unavailable Talampas, Paulo D Referring Unavailable Borruso, Callum Attending Unavailable Talampas, Paulo D Primary Care Unavailable Talampas, Paulo D Referring Unavailable Borruso, Callum Attending Unavailable Talampas, Paulo D Primary Care Unavailable Beverly, Julian Attending Unavailable Talampas, Paulo D Primary Care Unavailable Elton Short Attending Unavailable Talampas, Paulo D Referring Unavailable Friend, Raul Attending Unavailable Talampas, Paulo D Primary Care Unavailable Talampas, Paulo D Referring Unavailable Talampas, Paulo D Primary Care Unavailable Borruso, Callum Attending Unavailable Talampas, Paulo D Referring Unavailable Talampas, Paulo D Primary Care Unavailable Beverly, Julian Attending Unavailable Friend, Raul Attending Unavailable Talampas, Paulo D Primary Care Unavailable Talampas, Paulo D Referring Unavailable Talampas, Paulo D Primary Care Unavailable Talampas, Paulo D Referring Unavailable Borruso, Callum Attending Unavailable Talampas, Paulo D Primary Care Unavailable Beverly, Alma Attending Unavailable Allergies Allergy Classification Reported Allergen(s) Allergy Type Date of Onset Reaction(s) Facility (20 sources) Aspirin / Dipyridamole; Translations: [ASPIRIN-DIPYRIDAMOLE ] Drug Allergy 05-27-19 12 Other: See Comments [facility] (20 sources) Benzocaine / butamben / Tetracaine; Translations: [BUTAMBEN-TETRACAINE- BENZOCAINE] Drug Allergy 09-12-19 13 Other: See Comments [facility] Work Phone: (20 sources) Codeine; Translations: [CODEINE] Drug Allergy 03-07-20 06 Intolerance [facility] (20 sources) Cortisone; Translations: [CORTISONE] Drug Allergy 09-19-19 22 Shortness of Breath [facility] Work Phone: (20 sources) lansoprazole; Translations: [LANSOPRAZOLE] Drug Allergy 03-07-20 06 GI Upset [facility] (20 sources) Latex; Translations: [LATEX] Propensity to adverse reactions 11-04-19 10 Rash [facility] Work Phone: (20 sources) Meclizine; Translations: [MECLIZINE] Drug Allergy 03-07-20 06 Swelling [facility] (20 sources) methylPREDNISolone Drug Allergy 03-07-20 06 Swelling [facility] (20 sources) Metoprolol; Translations: [METOPROLOL] Drug Allergy 04-24-19 07 GI Upset [facility] Work Phone: (20 sources) mirabegron; Translations: [MIRABEGRON] Drug Allergy 12-27-19 15 Other: See Comments [facility] Work Phone: (20 sources) Omeprazole; Translations: [OMEPRAZOLE MAGNESIUM] Drug Allergy 09-19-19 Diarrhea [facility] Work Phone: (20 sources) oxybutynin; Translations: [OXYBUTYNIN CHLORIDE] Drug Allergy 03-07-20 06 Intolerance [facility] (20 sources) Povidone-Iodine; Translations: [POVIDONE-IODINE] Drug Allergy 11-05-19 Rash [facility] Work Phone: (20 sources) Sulfamethoxazole / Trimethoprim; Translations: [SULFAMETHOXAZOLE-TRI METHOPRIM] Drug Allergy 03-20-19 [facility] Work Phone: (20 sources) tegaserod; Translations: [TEGASEROD HYDROGEN MALEATE] Drug Allergy 03-07-20 06 [facility] (20 sources) tiZANidine; Translations: [TIZANIDINE] Drug Allergy 03-24-19 15 Other: See Comments [facility] (20 sources) tolterodine; Translations: [TOLTERODINE TARTRATE] Drug Allergy 03-07-20 Intolerance [facility] (20 sources) cigarettes [Other] Propensity to adverse reactions 02-23-20 10 Shortness of Breath [facility] (20 sources) ekg patches [Other] Propensity to adverse reactions 02-21-20 [facility] (20 sources) paper tape [Other] Propensity to adverse reactions 08-16-19 07 Rash [facility] Work Phone: (20 sources) Adhesive agent; Translations: [ADHESIVE] Allergy to substance 09-19-19 Rash [facility] (6 sources) Aspirin Drug Allergy 09-19-19 Unknown [facility] (9 sources) Benzocaine Drug Allergy 09-19-19 22 Unknown [facility] (9 sources) butamben Drug Allergy 09-19-19 22 Unknown, Vomiting [facility] (9 sources) Dipyridamole Drug Allergy 09-19-19 22 Unknown [facility] (10 sources) methylPREDNISolone; Translations: [methylprednisolone acetate] Drug Allergy 09-19-19 22 Unknown, Angioedema [facility] (1 source) methylPREDNISolone Drug Allergy 09-19-19 22 Angioedema [facility] Work Phone: (9 sources) Omeprazole Drug Allergy 09-19-19 22 Unknown [facility] (9 sources) Sulfamethoxazole Drug Allergy 09-19-19 22 Unknown [facility] (9 sources) Tetracaine Drug Allergy 09-19-19 [facility] (9 sources) Trimethoprim Drug Allergy 09-19-19 22 Unknown [facility] (9 sources) Varicella zoster virus glycoprotein E Drug Allergy 09-19-19 Rash [facility] (6 sources) soap Allergy to substance 09-19-19 [facility] (10 sources) vaccine adjuvant system, AS01B liposomal; Translations: [vaccine adjuvant system, AS01B liposomal] Propensity to adverse reactions 09-19-19 [facility] (1 source) PAPER TAPE Propensity to adverse reactions 09-19-19 [facility] Work Phone: (9 sources) Adhesive Tape; Translations: [adhesive tape] Propensity to adverse reactions 04-24-19 [facility] Comment on above: PAPER TAPE (20 sources) Lisinopril; Translations: [LISINOPRIL] Drug Allergy 04-26-19 Intolerance [facility] Work Phone: Comment on above: question if try katie rgy (20 sources) Adhesive Tape; Translations: [ADHESIVE TAPE (ROSINS)] Allergy to substance 02-13-20 Rash [facility] Work Phone: (20 sources) methylPREDNISolone; Translations: [METHYLPREDNISOLONE] Drug Allergy 02-13-20 Other: See Comments [facility] Work Phone: (20 sources) Cigarette Smoke; Translations: [CIGARETTE SMOKE] Drug Intolerance 11-29-20 23 Shortness of Breath [facility] Work Phone: (1 source) Benzocaine Drug Allergy 06-19-19 [facility] (1 source) butamben Drug Allergy 06-19-19 [facility] (1 source) Codeine Drug Allergy 06-19-19 [facility] (1 source) Cortisone Drug Allergy 06-19-19 [facility] (1 source) Dipyridamole Drug Allergy 06-19-19 [facility] (1 source) lansoprazole Drug Allergy 06-19-19 [facility] (1 source) Latex Drug allergy (disorder) 06-19-19 [facility] (1 source) Lisinopril Drug Allergy 06-19-19 [facility] (1 source) Meclizine Drug Allergy 06-19-19 [facility] (1 source) Metoprolol Drug Allergy 06-19-19 [facility] (1 source) mirabegron Drug Allergy 06-19-19 [facility] (1 source) Omeprazole Drug Allergy 06-19-19 [facility] (1 source) Omeprazole Drug Allergy 06-19-19 [facility] (1 source) oxybutynin Drug Allergy 06-19-19 [facility] (1 source) Povidone-Iodine Drug Allergy 06-19-19 [facility] (1 source) Sulfamethoxazole Drug Allergy 06-19-19 [facility] (1 source) tegaserod Drug Allergy 06-19-19 [facility] (1 source) Tetracaine Drug Allergy 06-19-19 [facility] (1 source) tiZANidine Drug Allergy 06-19-19 [facility] (1 source) tolterodine Drug Allergy 06-19-19 [facility] (1 source) Trimethoprim Drug Allergy 06-19-19 [facility] (1 source) tegaserod hydrogen maleate Drug allergy (disorder) 06-19-19 [facility] (1 source) varicella-zoster virus glycoprotein E, recombinant Drug allergy (disorder) 06-19-19 [facility] Medications Current Medications Medication Drug Class(es) Dates Sig (Normalized) Sig (Original) acetaminophen 500 mg oral capsule (20 sources) Start: 05-05-2022 take 1 capsule by mouth every six hours as needed for pain Acetaminophen 500 mg Capsule Active 500 mg PO EVERY 6 HOURS as needed for Pain May 05, 2022 1:00am Start: 04-08-2019 take 325 mg by mouth once Acet aminophen Active 325 MG PO ONCE April 08, 2019 12:00am Start: 02-09-2019 End: 04-08-2019 take 500-1000 mg by mouth at bedtime as needed for pain Acetaminophen 500 MG tablet Discontinued 500 - 1000 mg PO AT BEDTIME NEEDED as needed for Pain Score 1-05/24February 09, 2019 1:00am April 08, 2019 12:17pm Start: 02-09-2019 End: 04-08-2019 take 500-1000 mg by mouth at bedtime as needed Acetaminophen Discontinued 500 - 1000 MG PO AT BEDTIME NEEDED February 09, 2019 1:00am April 08, 2019 12:17pm take 2 tablets by [facility] every six hours as needed acetaminophen (TYLENOL) 325 mg tablet Take 650 mg by mouth every 6 hours as needed. Tylenol arthritis Active Comment on above: Take 650 mg by mouth every 6 hours as needed. Tylenol arthritis albuterol 0.833 mg/ml / ipratropium bromide 0.167 mg/ml inhalation solution (20 sources) Anticholinergic, beta2-Adrenergic Agonist Start: take 3 mL by inhalation every six hours ipratropium-albuter ol (DUONEB) 0.5 mg-3 mg(2.5 mg base)/3 mL nebu Inhale 3 mL as instructed every 6 hours. Unit dose pack. dr Park pulmonology. 02/21/2023 Active Start: 10-02-2022 take 1 mL by inhalat ion every four hours as needed for wheezing Ipratropium-Albuterol 0.5 mg-3 mg(2.5 mg base)/3 mL solution for nebulization Active 3 mL INHALATION EVERY 4 HOURS NEEDED as needed for SOB &/OR WHEEZING 180 October 02, 2022 12:00am Start: 10-02-2022 take 1 mL by inhalat ion every four hours as needed Ipratropium-Albuterol Active 3 ML INHALATION EVERY 4 HOURS NEEDED 180 October 02, 2022 12:00am Comment on above: Inhale 3 mL as instr ucted every 6 hours. Unit dose pack. dr Park pulmonology. amLODIPine 5 mg oral tablet (20 sources) Dihydropyridine Calcium Channel Ranjan Start: 3 take 2.5 mg by mouth once daily Amlodipine 5 mg tablet Active 2.5 mg PO DAILY January 31, 2023 3:48pm Start: 01-31-2023 take 2.5 mg by mouth once pastora y Amlodipine Active 2.5 MG PO DAILY January 31, 2023 3:48pm Start: 05-24-2022 End: 08-21-2023 take 1 tablet by mouth once daily Amlodipine 5 mg tablet Discontinued 5 mg PO DAILY July 26, 2022 12:00am January 31, 2023 3:52pm Start: 04-24-2022 End: 07-26-2022 take 1 tablet by mouth once daily Amlodipine (Norvasc) 2.5 mg tablet Discontinued 2.5 mg PO DAILY April 24, 2022 1:00am July 26, 2022 1:55pm Comment on above: Take 1 tablet by all th once daily. Take by mouth. aspirin 81 mg delayed release oral tablet (20 sources) Platelet Aggregation Inhibitor, Nonsteroidal Anti-inflammatory Drug Start: 9 take 1 tablet by mouth once daily Aspirin 81 MG tablet Active 81 mg PO DAILY@0800 February 09, 2019 1:00am Comment on above: Take 81 mg by mouth. benzonatate 100 mg oral capsule (8 sources) Non-narcotic Antitussive Start: 4 take 100-200 mg by mouth three times daily as needed for cough Benzonatate 100 mg capsule Active 100 - 200 mg PO THREE TIMES A DAY as needed for cough March 12, 2024 1:00am Start: 01-23-2024 End: 01-23-2024 take 1 capsule by mouth three times daily as needed benzonatate (TESSALON PERLE) 100 mg capsule Indications: Acute cough Take 1-2 capsules by mouth three times a day as needed for cough. 60 capsule 1 01/23/2024 Active budesonide 0.25 mg/ml inhalation suspension (20 sources) Corticosteroid Start: 04-21-2023 End: 10-15-2023 take 0.5 mg by inhalation every twelve hours Budesonide 0.5 mg/2 mL suspension for nebulization Active 0.5 mg INHALATION Q12H 120 October 15, 2023 11:04am Start: 10-02-2022 End: 01-31-2023 take 1 mg by inhalation twice daily Budesonide 1 mg/2 mL suspension for nebulization Discontinued 1 mg INHALATION TWICE A DAY 60 October 02, 2022 12:00am January 31, 2023 3:48pm Start: 06-15-2020 End: 07-26-2022 take 0.5 mg by inhalation twice daily Budesonide 0.5 mg/2 mL suspension for nebulization Discontinued 0.5 mg INHALATION TWICE A DAY 120 May 29, 2022 12:43pm July 26, 2022 1:59pm J45.40 budesonide (PULM ICORT) 0.5 mg/2 mL nebulizer solution Use 0.5 mg via nebulizer once daily. Active Comment on above: Use 0.5 mg via nebul izer once daily. cholecalciferol 0.125 mg oral capsule (20 sources) Vitamin D Start: 10-11-19 take 1 capsule by mouth once daily Cholecalciferol (Vitamin D3) 125 mcg (5,000 unit) capsule Active 125 ug PO DAILY October 11, 2019 12:00am Start: 02-09-2019 End: 04-08-2019 take 1 capsule by mouth once daily Cholecalciferol (Vitamin D3) 5,000 UNIT capsule Discontinued 5000 U PO DAILY February 09, 2019 1:00am April 08, 2019 12:18pm take 1 capsule by [facility] once daily cholecalciferol, vitamin D3, 10 mcg (400 unit) cap Take 400 Units by mouth once daily. Active Comment on above: Take 400 Units by mo [facility] once daily. 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 Arleen Burdick 0 10/13/2013 04/26/2022 Discontinued Start: 10-13-2013 COMPOUNDED PRE SCRIPTION [place] Antiseptic Powder (carbolic acid; zinc oxide) as needed per Dr. Arleen Burdick 0 10/13/2013 Active Comment on above: [place] Antiseptic Powder (carbolic acid; zinc oxide) as needed per Dr. 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 DX: EDEMA 782.3, venous insuffiency 459.81 (Futuro therapeutic open heel and open toe if available) 2 Each 1 05/18/2014 Active Comment on above: KNEE HIGH COMPRESSIO N STOCKINGS 20-30 MM. DX: EDEMA 782.3, venous insuffiency 459.81 (Futuro therapeutic open heel and open toe if available) cranberry fruit concentrate (AZO CRANBERRY) 250 mg chew (20 sources) cranberry fruit concentrate (AZO CRANBERRY) 250 mg chew Take by mouth. Active cranberry fruit concentrate (AZO CRANBERRY) 250 mg chew Take by mouth. 0 Active Comment on above: Take by mouth. Cranberry Fruit Concentrate (6 sources) Non-Standardized Food Allergenic Extract, Non-Standardized Plant Allergenic Extract Start: take 1 tablet by mouth once daily Cranberry Fruit Concentrate (Azo Cranberry) 250 mg tablet,chewable Active 250 mg PO DAILY January 31, 2023 4:11pm Start: 01-31-2023 take 1 tablet by all th once daily Cranberry Fruit Concentrate (Azo Cranberry) 250 mg tablet,chewable Active 250 MG PO DAILY January 31, 2023 4:11pm Start: 01-31-2023 take 1 tablet by all th once daily Cranberry Fruit Concentrate (Azo Cranberry) 250 mg tablet,chewable Active 250 MG PO DAILY January 31, 2023 3:11pm Start: 01-31-2023 End: 01-31-2023 take 1 tablet by mouth three times daily Cranberry Fruit Concentrate (Azo Cranberry) 250 mg tablet,chewable Discontinued 250 mg PO THREE TIMES A DAY January 31, 2023 1:00am January 31, 2023 4:11pm Start: 01-31-2023 End: 01-31-2023 take 1 tablet by mouth three times daily Cranberry Fruit Concentrate (Azo Cranberry) 250 mg tablet,chewable Discontinued 250 MG PO THREE TIMES A DAY January 31, 2023 1:00am January 31, 2023 4:11pm Start: 01-31-2023 End: 01-31-2023 take 1 tablet by mouth three times daily Cranberry Fruit Concentrate (Azo Cranberry) 250 mg tablet,chewable Discontinued 250 MG PO THREE TIMES A DAY January 31, 2023 12:00am January 31, 2023 3:11pm cyclobenzaprine hydrochloride 5 mg oral tablet (18 sources) Muscle Relaxant Start: 07-04-2023 take 1 tablet by mouth three times daily as needed for muscle spasms cyclobenzaprine (FLEXERIL) 5 mg tablet Indications: Strain of lumbar region, subsequent encounter , Chronic bilateral low back pain with bilateral sciatica Take 1 tablet by mouth three times a day as needed for muscle spasm. 60 tablet 1 07/04/2023 Active Comment on above: Take 1 tablet by all th three times a day as needed for muscle spasm. diazePAM 5 mg oral tablet (20 sources) Benzodiazepine Start: 03-25-2024 End: 09-21-2024 diazePAM (VALIUM) 5 mg tablet Indications: Vertigo , Anxiety Take 1 tablet by mouth at bedtime as needed (vertigo or anxiety) for up to 180 days. Patient should start on March 25, 2024. 30 tablet 5 03/25/2024 09/21/2024 Active Start: 09-24-2023 End: 03-22-2024 take 1 tablet by mouth at bedtime as needed for anxiety diazePAM (VALIUM) 5 mg tablet Indications: Vertigo , Anxiety Take 1 tablet by mouth at bedtime as needed (vertigo or anxiety) for up to 180 days. Do not start before September 24, 2023. 30 tablet 5 09/24/2023 02/22/2024 Discontinued Start: 09-24-2023 End: 09-22-2023 take 1 tablet by mouth at bedtime as needed for anxiety diazePAM (VALIUM) 5 mg tablet Indications: Vertigo , Anxiety Take 1 tablet by mouth at bedtime as needed (vertigo or anxiety) for up to 180 days. Do not start before September 24, 2023. 30 tablet 5 09/24/2023 09/22/2023 Discontinued Start: 09-24-2023 End: 03-22-2024 take 1 tablet by mouth at bedtime as needed for anxiety diazePAM (VALIUM) 5 mg tablet Indications: Vertigo , Anxiety Take 1 tablet by mouth at bedtime as needed (vertigo or anxiety) for up to 180 days. Do not start before September 24, 2023. 30 tablet 5 09/24/2023 03/22/2024 Active Start: 09-24-2023 End: 09-22-2023 take 1 tablet by mouth at bedtime as needed for anxiety diazePAM (VALIUM) 5 mg tablet Indications: Vertigo , Anxiety Take 1 tablet by mouth at bedtime as needed (vertigo or anxiety) for up to 180 days. Do not start before September 24, 2023. 30 tablet 5 09/24/2023 09/22/2023 Discontinued Start: 07-30-2023 End: 10-28-2023 take 1 tablet by mouth at bedtime as needed for anxiety diazePAM (VALIUM) 5 mg tablet Indications: Vertigo , Anxiety Take 1 tablet by mouth at bedtime as needed (vertigo or anxiety) for up to 90 days. 30 tablet 2 07/30/2023 09/17/2023 Discontinued Start: 01-13-2019 End: 03-22-2024 take 1 tablet by mouth at bedtime as needed for anxiety diazePAM (VALIUM) 5 mg tablet Indications: Vertigo , Anxiety Take 1 tablet by mouth at bedtime as needed (vertigo or anxiety) for up to 180 days. Do not start before September 24, 2023. 30 tablet 5 09/24/2023 03/22/2024 Active Start: 01-13-2019 End: 07-28-2023 take 1 tablet by mouth at bedtime as needed for anxiety diazePAM (VALIUM) 5 mg tablet Indications: Vertigo , Anxiety Take 1 tablet by mouth at bedtime as needed (vertigo or anxiety) for up to 90 days. Do not start before April 27, 2023. 30 tablet 2 04/27/2023 07/28/2023 Discontinued Comment on above: Take 1 tablet by all th at bedtime as needed (vertigo or anxiety) for up to 180 days. Take 1 tablet by all th at bedtime as needed (vertigo or anxiety) for up to 90 days. Take 1 tablet by all th at bedtime as needed (vertigo or anxiety) for up to 90 days. Do not start before August 20, 2022. Take 1 tablet by all th at bedtime as needed (vertigo or anxiety) for up to 90 days. Do not start before January 27, 2023. Take 1 tablet by all th at bedtime as needed (vertigo or anxiety) for up to 90 days. Do not start before April 27, 2023. diclofenac sodium 0.01 mg/mg topical gel (15 sources) Nonsteroidal Anti-inflammatory Drug Start: apply 2 g topically four times daily diclofenac (VOLTAREN) 1 % topical gel Apply 2 g to affected area four times daily. 50 g 07/22/2023 Active hydrocortisone 25 mg/ml topical cream (2 sources) Corticosteroid Start: Hydrocortisone 2.5 % cream with perineal applicator Active 1 NMA TOPICAL daily December 01, 2023 12:00am Start: 10-17-2023 End: 10-24-2023 hydrocortisone (ANUSOL-HC) 2 .5 % rectal cream Indications: External hemorrhoid by RECTAL route two times a day for 7 days. 28 g 1 10/17/2023 10/24/2023 Active Inhalational Spacing Device (Breatherite Mdi Spacer) spacer (9 sources) Start: 10-11-2019 Inhalational S pacing Device (Breatherite Mdi Spacer) spacer Active 0 .ROUTE .MEDSUPPLY October 10, 2019 11:00pm As directed Start: 10-11-2019 Inhalational S pacing Device (Breatherite Mdi Spacer) spacer Active 0 .ROUTE .MEDSUPPLY October 11, 2019 12:00am As directed lactulose 667 mg/ml oral solution (8 sources) Osmotic Laxative Start: 02-20-2024 take 30 mL by mouth once daily Lactulose 20 gram/30 mL solution Active 20 g PO AT BEDTIME 2700 90 February 20, 2024 2:16pm Take 30ml by mouth every night. Start: 08-15-2023 End: 11-16-2023 take 30 mL by mouth once daily at bedtime lactulose 10 gram/15 mL solution Indications: External hemorrhoid Take 30 mL by mouth daily at bedtime. Previously ordered by Dr Casper, 30 day supply for now 900 mL 10/17/2023 11/16/2023 Active Start: 08-15-2023 End: 02-20-2024 take 30 mL by mouth once daily Lactulose 20 gram/30 mL solution Discontinued 20 g PO AT BEDTIME 2700 90 August 15, 2023 12:00am February 20, 2024 2:16pm Take 30ml by mouth every night. levothyroxine sodium 0.088 mg oral tablet (20 sources) l-Thyroxine Start: 04-11-2022 End: 08-21-2023 take 1 tablet by mouth once daily Levothyroxine 88 mcg tablet Active 88 ug PO DAILY July 26, 2022 12:00am Start: 08-23-2021 End: 11-01-2021 take 1 tablet by mouth once daily for thyroid dysfunction levothyroxine (SYNTHROID) 88 mcg tablet Indications: Acquired hypothyroidism Take 1 tablet by mouth once daily. Take on empty stomach. For Thyroid 90 tablet 1 04/11/2022 Active Start: 12-08-2020 End: 08-23-2021 take 1 tablet by mouth once daily for thyroid dysfunction levothyroxine (SYNTHROID) 75 mcg tablet Indications: Acquired hypothyroidism Take 1 tablet by mouth once daily. Take on empty stomach. For Thyroid 90 tablet 3 12/08/2020 08/23/2021 Discontinued Start: 01-11-2014 End: 07-26-2022 Levothyroxine 50 MCG tablet Discontinued 88 ug PO DAILY January 11, 2014 12:00am July 26, 2022 1:57pm Start: 01-11-2014 End: 12-07-2020 take 1 tablet by mouth once daily, then take 2 tablets by mouth every week, then take 9 tablets by mouth every week levothyroxine (SYNTHROID) 50 mcg tablet Take 1 tablet by mouth once daily. Add 2 pill per week--total of 9 pills per week 120 tablet 3 03/08/2020 12/07/2020 Discontinued Start: 01-11-2014 End: 07-26-2022 take 88 ug by mouth once daily Levothyroxine Discontin ued 88 MCG PO DAILY January 11, 2014 12:00am July 26, 2022 1:57pm Comment on above: Take 1 tablet by all th once daily. Take on empty stomach. For Thyroid lidocaine 0.05 mg/mg medicated patch (18 sources) Antiarrhythmic, Amide Local Anesthetic Start: 2023 lidocaine (LIDODERM) 5 % Indications: Strain of lumbar region, subsequent encounter , Chronic bilateral low back pain with bilateral sciatica Apply 1 Patch as directed once daily. Remove old patch after wearing for 12 hours and then 12 hours later apply new patch for 12 hours on the site and 12 hours off the site. Location: right lower back. 30 Patch 1 07/04/2023 Active Comment on above: Apply 1 Patch as dir ected once daily. Remove old patch after wearing for 12 hours and then 12 hours later apply new patch for 12 hours on the site and 12 hours off the site. Location: right lower back. methylPREDNISolone (2 sources) Corticosteroid Start: 2023 End: 2023 methylPREDNISolone (MEDROL, JEYSON,) 4 mg Dose-Pack Indications: Strain of lumbar region, subsequent encounter , Chronic bilateral low back pain with bilateral sciatica Follow dosing instructions, take with food. 21 tablet 0 07/04/2023 07/10/2023 Active Comment on above: Follow dosing instru ctions, take with food. multivitamin ORAL tablet (20 sources) Start: 2010 take 1 tablet by mouth twice daily multivitamin ORAL tablet Indications: Dyspnea on exertion Take 1 tablet by mouth twice daily. 0 09/12/2010 Active Comment on above: Take 1 tablet by all th twice daily. Multivitamin preparation (8 sources) Start: 2019 take 1 tablet by mouth once daily Multivitamin Active 1 TABLET PO DAILY April 08, 2019 12:00am Start: 04-08-2019 take 1 tablet by all th once daily Multivitamin Active 1 TABLET PO DAILY April 08, 2019 1:00am Multivitamin tablet (1 source) Start: 04-08-2019 Multivitamin tablet Active 1 {tbl} PO DAILY April 08, 2019 1:00am nitrofurantoin, macrocrystals 25 mg / nitrofurantoin, monohydrate 75 mg oral capsule (1 source) Nitrofuran Antibacterial Start: 02-25-2022 End: 03-04-2022 take 1 capsule by mouth twice daily nitrofurantoin monohydrate and macrocrystal (MACROBID) 100 mg capsule Indications: UTI symptoms Take 1 capsule by mouth twice daily for 7 days. 14 capsule 0 02/25/2022 03/04/2022 Active Comment on above: Take 1 capsule by [facility] twice daily for 7 days. nystatin 100 unt/mg topical powder (2 sources) Polyene Antifungal Start: 09-19-2022 End: 10-03-2022 nystatin (MYCOSTATIN) powder Indications: Intertrigo Apply 1 application to affected area four times daily for 14 days. 60 g 1 09/19/2022 10/03/2022 Active Comment on above: Apply 1 application to affected area four times daily for 14 days. pantoprazole 40 mg delayed release oral tablet (2 sources) Proton Pump Inhibitor Start: 08-15-2023 take 1 tablet by mouth twice daily Pantoprazole 40 mg tablet,delayed release (DR/EC) Active 40 mg PO TWICE A DAY 180 90 August 15, 2023 12:00am Start: 08-15-2023 End: 08-15-2023 take 1 tablet by mouth twice daily Pantoprazole 20 mg tablet,delayed release (DR/EC) Discontinued 20 mg PO TWICE A DAY 60 August 15, 2023 12:00am August 15, 2023 11:39am silver sulfADIAZINE 10 mg/ml topical cream (1 source) Sulfonamide Antibacterial Start: 02-22-2022 End: 03-08-2022 silver sulfADIAZINE (SILVADENE,THERMAZENE) 1 % cream Apply 1 application to affected area once daily for 14 days. Left foot wound. 50 g 0 02/22/2022 03/08/2022 Active Comment on above: Apply 1 application to affected area once daily for 14 days. Left foot wound. valACYclovir 1000 mg oral tablet (8 sources) Herpesvirus Nucleoside Analog DNA Polymerase Inhibitor, Herpes Simplex Virus Nucleoside Analog DNA Polymerase Inhibitor, Herpes Zoster Virus Nucleoside Analog DNA Polymerase Inhibitor Start: 09-19-2022 End: 09-26-2022 take 1 tablet by mouth three times daily valACYclovir (VALTREX) 1 gram Indications: Rash Take 1 tablet by mouth three times daily for 7 days. 21 tablet 0 09/19/2022 09/26/2022 Active Start: 05-17-2022 take 2000 mg by mout h every twelve hours valACYclovir (VALTREX) 1 gram Take 2 tablets by mouth q 12 HR. for 2 doses 4 tablet 1 05/17/2022 Active Comment on above: Take 2 tablets by mo uth q 12 HR. for 2 doses Take 1 tablet by all th three times daily for 7 days. Completed/Discontinued Medications Medication Drug Class(es) Dates Sig (Normalized) Sig (Original) acetaminophen 325 mg / HYDROcodone bitartrate 5 mg oral tablet (11 sources) Opioid Agonist Start: 06-19-2023 End: 08-15-2023 Hydrocodone-Acetami nophen 5-325 mg tablet Discontinued 1 {tbl} PO EVERY 6 HOURS NEEDED as needed for Pain 10 June 19, 2023 August 15, 2023 11:01am Start: 06-19-2023 take 1 tablet by all th every six hours as needed Hydrocodone-Acetaminophen Active 1 TABLE T PO EVERY 6 HOURS NEEDED 10 June 19, 2023 Start: 02-10-2019 End: 02-12-2019 Hydrocodone-Acetaminophen 1 TABLET tablet Discontinued 1 {tbl} PO EVERY 6 HOURS NEEDED as needed for Pain 8 2 February 10, 2019 February 11, 2019 1:00am February 12, 2019 1:09am Start: 02-10-2019 End: 02-12-2019 take 1 tablet by mouth every six hours as needed Hydrocodone-Acetaminophen Discontinued 1 TABLET PO EVERY 6 HOURS NEEDED 8 2 February 10, 2019 February 12, 2019 1:09am albuterol 5 mg/ml inhalation solution (20 sources) beta2-Adrenergic Agonist Start: 07-30-2022 End: 10-02-2022 take 2.5 mg by inhalation every four hours as needed for wheezing Albuterol Sulfate 2.5 mg/0.5 mL solution for nebulization Discontinued 2.5 mg INHALATION Q4H as needed for shortness of breath or wheezing 180 July 30, 2022 1:14pm October 02, 2022 1:47pm Start: 07-26-2022 End: 07-30-2022 take 10 mg by inhalation every four hours as needed Albuterol Sulfate 2.5 mg/0.5 mL solution for nebulization Discontinued 10 mg INHALATION Q4H as needed July 26, 2022 12:00am July 30, 2022 11:19am Start: 09-20-2019 End: 04-26-2022 take 2 puff(s) by mouth every four hours as needed for wheezing albuterol HFA (PROVENTIL HFA, VENTOLIN HFA) 90 mcg/actuation inhaler INHALE 2 PUFFS BY MOUTH EVERY 4 HOURS NEEDED FOR SHORTNESS OF BREATH OR WHEEZING 09/20/2019 04/26/2022 Discontinued Start: 09-20-2019 End: 01-31-2023 Albuterol Sulfate (Ventolin Hfa) 90 mcg/actuation HFA aerosol inhaler Discontinued 2 NMA INHALATION Q4H as needed for shortness of breath or wheezing September 20, 2019 12:00am January 31, 2023 3:51pm Start: 09-20-2019 End: 01-31-2023 take 1 puff(s) by inhalation every four hours Albuterol Sulfate (Ventolin Hfa) 90 mcg/actuation HFA aerosol inhaler Discontinued 2 PUFF INHALATION Q4H September 20, 2019 12:00am January 31, 2023 3:51pm Comment on above: INHALE 2 PUFFS BY MO UTH EVERY 4 HOURS NEEDED FOR SHORTNESS OF BREATH OR WHEEZING carboxymethylcell/hyp romellose (GENTEAL GEL OPHTHALMIC) (10 sources) End: 04-26-2022 carboxymethylcell/hyprome llose (GENTEAL GEL OPHTHALMIC) Use in both eyes daily at bedtime. 0 04/26/2022 Discontinued carboxymethylcel l/hypromellose (GENTEAL GEL OPHTHALMIC) Use in both eyes daily at bedtime. 0 Active Comment on above: Use in both eyes swati ly at bedtime. celecoxib 100 mg oral capsule (1 source) Nonsteroidal Anti-inflammatory Drug Start: 12-01-19 End: 01-23-20 take 1 capsule by mouth twice daily Celecoxib (Celebrex) 100 mg capsule Discontinued 100 mg PO TWICE A DAY December 01, 2023 12:00am January 23, 2024 10:21am Do not take in conjunction with other NSAID. Tylenol is okay. esomeprazole 20 mg delayed release oral capsule (19 sources) Proton Pump Inhibitor Start: 07-27-19 End: 02-01-20 take 1 capsule by mouth once daily Esomeprazole Magnesium 20 mg capsule,delayed release(DR/EC) Discontinued 20 mg PO DAILY July 26, 2022 12:00am January 31, 2023 3:51pm Start: 02-24-2017 End: 04-26-2022 take 1 capsule by mouth once daily esomeprazole (NEXIUM 24HR) 20 mg capsule Take 1 capsule by mouth once daily. Needs Namebrand over the counter, not generic. 02/24/2017 04/26/2022 Discontinued Comment on above: Take 1 capsule by [facility] once daily. Needs Namebrand over the counter, not generic. 30 actuat fluticasone furoate 0.1 mg/actuat / vilanterol 0.025 mg/actuat dry powder inhaler (20 sources) Corticosteroid, beta2-Adrenergic Agonist Start: 07-26-2022 End: 10-02-2022 Fluticasone Furoate-Vilanterol (Breo Ellipta) 100-25 mcg/dose blister with device Discontinued 1 NMA INHALATION DAILY July 26, 2022 12:00am October 02, 2022 1:22pm Start: 07-26-2022 End: 10-02-2022 Fluticasone Furoate-Vilanter ol (Breo Ellipta) 100-25 mcg/dose blister with device Discontinued 1 INH INHALATION DAILY July 26, 2022 12:00am October 02, 2022 1:22pm Start: 11-04-2019 End: 06-15-2020 Fluticasone Furoate-Vilanter ol (Breo Ellipta) 200-25 mcg/dose blister with device Discontinued 1 NMA INHALATION DAILY November 04, 2019 12:00am June 15, 2020 2:08pm Start: 11-04-2019 End: 06-15-2020 Fluticasone Furoate-Vilanter ol (Breo Ellipta) 200-25 mcg/dose blister with device Discontinued 1 INH INHALATION DAILY November 04, 2019 12:00am June 15, 2020 2:08pm End: 04-26-2022 fluticasone-vilanterol (BREO ELLIPTA) 100-25 mcg/dose inhaler Inhale 1 Inhalation as instructed once daily. Dr. Park 04/26/2022 Discontinued Comment on above: Inhale 1 Inhalation as instructed once daily. Dr. Park gabapentin 100 mg oral capsule (20 sources) Anti-epileptic Agent Start: 4 End: take 3 capsules by mouth once daily at bedtime gabapentin (NEURONTIN) 100 mg capsule Indications: Chronic bilateral low back pain with bilateral sciatica Take 3 capsules by mouth daily at bedtime for 180 days. 21 capsule 02/20/2024 05/21/2024 Discontinued Start: 04-06-2023 End: 02-21-2023 gabapentin (NEURONTIN) 100 m g capsule Indications: Chronic bilateral low back pain with bilateral sciatica Take 3 capsules by mouth daily at bedtime for 180 days. Do not start before April 06, 2023. 270 capsule 1 04/06/2023 02/21/2023 Discontinued Start: 01-11-2014 End: 10-03-2023 take 3 capsules by mouth once daily at bedtime gabapentin (NEURONTIN) 100 mg capsule Indications: Chronic bilateral low back pain with bilateral sciatica Take 3 capsules by mouth daily at bedtime for 180 days. 270 capsule 1 10/10/2020 03/22/2021 Discontinued Start: 01-11-2014 take 300 mg by mouth at bedtim e Gabapentin Active 300 MG PO AT BEDTIME January 11, 2014 12:00am Comment on above: Take 3 capsules by m outh daily at bedtime for 180 days. Take 3 capsules by m outh daily at bedtime for 14 days. Take 3 capsules by m outh daily at bedtime for 180 days. Do not start before October 08, 2022. Take 3 capsules by m outh daily at bedtime for 10 days. Take 3 capsules by m outh daily at bedtime for 180 days. Do not start before April 06, 2023. hyoscyamine sulfate 0.125 mg oral tablet (14 sources) Start: 8 End: 3 hyoscyamine (LEVSIN) 0.125 mg tablet 02/02/2018 04/26/2022 Discontinued hypromellose 0.003 mg/mg ophthalmic gel (20 sources) End: 5 Artificial Tear, Hypromellose, (SYSTANE GEL) 0.3 % gel 1 Drop daily at bedtime. 05/21/2024 Discontinued Comment on above: 1 Drop daily at bedt bing. lisinopril 10 mg oral tablet (20 sources) Angiotensin Converting Enzyme Inhibitor Start: 3 End: 3 take 1 tablet by mouth once daily Lisinopril 10 mg tablet Discontinued 10 mg PO DAILY July 26, 2022 12:00am July 26, 2022 2:32pm Start: 06-02-2018 End: 04-26-2022 take 1 tablet by mouth once daily lisinopril (ZESTRIL, PRINIVIL) 10 mg tablet Take 1 tablet by mouth once daily. 90 tablet 3 02/07/2020 01/03/2021 Discontinued Comment on above: Take 1 tablet by all th once daily. lubiprostone 0.008 mg oral capsule (19 sources) Chloride Channel Activator Start: 3 End: 3 take 1 capsule by mouth once daily Lubiprostone 8 mcg capsule Discontinued 8 ug PO DAILY July 26, 2022 12:00am January 31, 2023 3:51pm End: 04-26-2022 take 1 capsule by mouth once daily at breakfast lubiprostone (AMITIZA) 8 mcg capsule Take 8 mcg by mouth daily with breakfast. 04/26/2022 Discontinued Comment on above: Take 8 mcg by mouth daily with breakfast. mineral oil 0.03 mg/mg / petrolatum 0.94 mg/mg ophthalmic ointment (20 sources) Start: 04-08-2019 End: 08-15-2023 White Petrolatum-Mineral Oil (Systane Nighttime) 94-3 % ointment Discontinued 1 NMA OPHTHALMIC AT BEDTIME April 08, 2019 1:00am August 15, 2023 10:19am Start: 04-08-2019 White Petrolat um-Mineral Oil (Systane Nighttime) 94-3 % ointment Active 1 APPLIC OPHTHALMIC 2 to 4 times per day April 08, 2019 12:00am Start: 02-24-2017 End: 04-26-2022 white petrolatum 94% - re examiner al oil 3% 94-3 % oint Dr. Lynne [facility] 02/24/2017 04/26/2022 Discontinued Comment on above: Dr. Guera Menard [facility] (14 sources) Start: 10-12-2019 End: 04-26-2022 [facility] as directed. 10/12/2019 04/26/2022 Discontinued Start: 10-12-2019 End: 04-26-2022 [facility] as d irected. 0 10/12/2019 04/26/2022 Discontinued Start: 10-12-2019 [facility] as directed. 0 10/12/2019 Active Comment on above: as directed. oseltamivir 75 mg oral capsule (9 sources) Neuraminidase Inhibitor Start: End: take 1 capsule by mouth twice daily Oseltamivir 75 MG capsule Discontinued 75 mg PO TWICE A DAY June 02, 2018 12:00am January 13, 2019 9:05am polyethylene glycol 3350 47402 mg powder for oral solution (5 sources) Osmotic Laxative Start: End: Polyethylene Glycol 3350 (Miralax) 17 gram/dose powder Discontinued 17 g PO DAILY August 05, 2022 12:00am January 31, 2023 3:52pm Use once daily until you have a large bowel movement. predniSONE 20 mg oral tablet (9 sources) Start: End: Prednisone 20 mg tablet Discontinued 0 .ROUTE .COMPLEX September 18, 2021 12:00am April 03, 2022 10:04am 3 tabs p.o. daily days 1 through 4, then 2 tabs p.o. daily days 5 through 8, then 1 tab p.o. daily day 9 through 12 spironolactone 25 mg oral tablet (20 sources) Aldosterone Antagonist Start: End: take 1 tablet by mouth once daily Spironolactone 25 mg tablet Discontinued 25 mg PO DAILY September 06, 2022 4:52pm January 31, 2023 3:52pm Comment on above: Take 25 mg by mouth once daily. Take 1 tablet by all th once daily. Problems Active Problems Problem Classification Problem Date Documented Da te Episodic/Chronic Abdominal hernia (20 sources) Hiatal hernia; Translations: [Diaphragmatic hernia without obstruction or gangrene] 03-12-2021 Episodic Abdominal pain (10 sources) Abdominal pain; Translations: [Unspecified abdominal pain] 09-27-2022 Episodic Allergic reactions (9 sources) Contact dermatitis; Translations: [Unspecified contact dermatitis, unspecified cause] 09-26-2021 Episodic Anxiety disorders (20 sources) Anxiety; Translations: [Anxiety disorder, unspecified] Onset: 10-22-2013 10-22-2013 Chronic Asthma (16 sources) Asthma; Translations: [Unspecified asthma, uncomplicated] Onset: 10-15-2023 Chronic Complications of surgical procedures or medical care (20 sources) History of adrenalectomy; 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 She believes that is possible her left breast swelling is related to spironolactone Genitourinary symptoms and ill-defined conditions (20 sources) Genuine stress incontinence; Translations: [Stress incontinence (female) (male)] Onset: 09-02-2013 09-02-2013 Chronic Hemorrhoids (1 source) External hemorrhoids; Translations: [Residual hemorrhoidal skin tags] 10-17-2023 Episodic Immunizations and screening for infectious disease (1 source) Encounter for immunization; Translations: [Encounter for immunization] Onset: 05-21-2024 Episodic Lymphadenitis (1 source) Submandibular lymphadenopathy; Translations: [Localized enlarged lymph nodes] Episodic Nutritional deficiencies (4 sources) Vitamin D deficiency; Translations: [Vitamin D deficiency, unspecified] Onset: 11-28-2023 Chronic Osteoarthritis (8 sources) Osteoarthritis of left knee joint; Translations: [Unilateral primary osteoarthritis, left knee] Onset: 01-23-2024 12-01-2023 Chronic Other acquired deformities (1 source) Scoliosis of lumbar spine; Translations: [Scoliosis, unspecified] 07-03-2023 Chronic Other acquired deformities (1 source) Lumbar spondylolisthesis; Translations: [Spondylolisthesis, lumbar region] 07-03-2023 Episodic Other acquired deformities (1 source) Spondylolisthesis, lumbar region; Translations: [Spondylolisthesis, lumbar region] Onset: 06-18-2024 Episodic Other aftercare (1 source) Long-term current use of drug therapy; Translations: [Other [employer] (current) drug therapy] 09-17-2023 Episodic Other and unspecified benign neoplasm (1 source) History of polyp of colon; Translations: [Personal history of colonic polyps] Episodic Other bone disease and musculoskeletal deformities (20 sources) Segmental and somatic dysfunction; Translations: [Segmental and somatic dysfunction of lumbar region] 02-10-2019 Episodic Other circulatory disease (9 sources) H/O: heart disorder; Translations: [Personal history of other diseases of the circulatory system] 02-10-2019 Episodic Other circulatory disease (5 sources) History of transient ischemic attack; Translations: [Personal history of transient ischemic attack (TIA), and cerebral infarction without residual deficits] 08-13-2022 Episodic Other connective tissue disease (7 sources) Pain in lower limb; Translations: [Pain in right leg] 05-05-2022 Episodic Other connective tissue disease (2 sources) Pain in right leg; Translations: [Pain in limb] 05-05-2022 Episodic Other connective tissue disease (1 source) Pain in bilateral legs; Translations: [Pain in right leg] Episodic Other connective tissue disease (1 source) Triggering of digit; Translations: [Trigger finger, right middle finger] 08-30-2020 Episodic Other connective tissue disease (1 source) Ganglion cyst; Translations: [Ganglion, unspecified site] 08-30-2020 Episodic Other diseases of bladder and urethra (20 sources) Overactive bladder; Translations: [Overactive bladder] Onset: 06-16-2013 06-16-2013 Chronic Other gastrointestinal disorders (20 sources) Irritable bowel syndrome; Translations: [Irritable bowel syndrome without diarrhea] 02-20-2006 Chronic Other gastrointestinal disorders (5 sources) History of irritable bowel syndrome; Translations: [Personal history of other diseases of the digestive system] 08-13-2022 Episodic Other gastrointestinal disorders (5 sources) Acute constipation; Translations: [Constipation, unspecified] 08-13-2022 Episodic Other gastrointestinal disorders (2 sources) Diarrhea; Translations: [Diarrhea, unspecified] 02-24-2024 Episodic Other gastrointestinal disorders (1 source) Diarrhea, unspecified; Translations: [Diarrhea, unspecified] Onset: 04-28-2024 Episodic Other inflammatory condition of skin (1 source) Intertrigo; Translations: [Erythema intertrigo] Episodic Other injuries and conditions due to external causes (1 source) History of fall; Translations: [History of falling] 12-15-2020 Episodic Other injuries and conditions due to external causes (1 source) Injury of left knee; Translations: [Unspecified injury of left lower leg, initial encounter] 11-26-2023 Episodic Other lower respiratory disease (12 sources) Chronic cough; Translations: [Chronic cough] Episodic Other lower respiratory disease (1 source) Cough; Translations: [Acute cough] 01-23-2024 Episodic Other nervous system disorders (7 sources) Difficulty walking; Translations: [Difficulty in walking, not elsewhere classified] 05-05-2022 Chronic Other nervous system disorders (2 sources) Difficulty in walking, not elsewhere classified; Translations: [Difficulty in walking] 05-05-2022 Chronic Other nervous system disorders (1 source) Impairment of balance; Translations: [Other abnormalities of gait and mobility] Episodic Other non-traumatic joint disorders (20 sources) Shoulder pain; Translations: [Pain in left shoulder] Onset: 06-04-2017 06-04-2017 Episodic Other non-traumatic joint disorders (20 sources) Pain in left shoulder; Translations: [Pain in joint, shoulder region] Onset: 06-04-2017 06-04-2017 Episodic Other non-traumatic joint disorders (1 source) Pain in right shoulder; Translations: [Pain in joint, shoulder region] 12-15-2020 Episodic Other non-traumatic joint disorders (1 source) Pain in left hip; Translations: [Pain in left hip] Onset: 06-18-2024 Episodic Other nutritional; endocrine; and metabolic disorders (20 sources) Metabolic syndrome X; Translations: [Metabolic syndrome] 02-20-2006 Chronic Other nutritional; endocrine; and metabolic disorders (20 sources) Obesity; Translations: [Obesity, unspecified] 06-26-2011 Chronic Other screening for suspected conditions (not mental disorders or infectious disease) (9 sources) Patient encounter status; Translations: [Encounter for screening mammogram for malignant neoplasm of breast] Onset: 03-05-2024 Episodic Other skin disorders (1 source) Eruption; Translations: [Rash and other nonspecific skin eruption] Episodic Other skin disorders (1 source) Mass of wrist; Translations: [Localized swelling, mass and lump, right upper limb] 08-30-2020 Episodic Other skin disorders (1 source) Lump on finger; Translations: [Localized swelling, mass and lump, right upper limb] 08-30-2020 Episodic Other upper respiratory disease (1 source) Pain in throat; Translations: [Pain in throat] Episodic Peripheral and visceral atherosclerosis (9 sources) Peripheral vascular disease, unspecified; Translations: [Peripheral arterial disease] 02-08-2019 Chronic Comment on above: Bilateral LE small v essel disease Phlebitis; thrombophlebitis and thromboembolism (20 sources) H/O: Deep vein thrombosis; Translations: [Personal history of other venous thrombosis and embolism] Onset: 11-02-2009 Resolved: 03-04-2017 02-10-2019 Episodic Residual codes; unclassified (1 source) Family history of cancer of colon; Translations: [Family history of malignant neoplasm of digestive organs] Episodic Residual codes; unclassified (1 source) Family history of gene mutation; Translations: [Family history of carrier of genetic disease] Episodic Spondylosis; intervertebral disc disorders; other back problems (11 sources) Degeneration of lumbar intervertebral disc; Translations: [Other intervertebral disc degeneration, lumbar region] 02-09-2019 Chronic Spondylosis; intervertebral disc disorders; other back problems (20 sources) Chronic neck pain; Translations: [Cervicalgia] Onset: 09-16-2017 09-16-2017 Episodic Sprains and strains (3 sources) Lower back injury; Translations: [Strain of muscle, fascia and tendon of lower back, initial encounter] 06-19-2023 Episodic Superficial injury; contusion (20 sources) Contusion of foot; Translations: [Contusion of unspecified foot, initial encounter] 06-18-2020 Episodic Thyroid disorders (20 sources) Hypothyroidism; Translations: [Hypothyroidism, unspecified] Onset: 03-12-2021 03-12-2021 Chronic Unclassified (1 source) Acute cough; Translations: [Acute cough] Onset: 07-11-2019 Viral infection (10 sources) Disease caused by 2019-nCoV; Translations: [COVID-19] 12-03-2020 Episodic Past or Other Problems Problem Classification Problem Date Documented Da te Episodic/Chronic Acquired foot deformities (20 sources) Talipes cavus; Translations: [Congenital pes cavus, left foot] Onset: 08-24-2020 08-24-2020 Episodic Administrative/social admission (20 sources) Marital conflict; Translations: [Problems in relationship with spouse or partner] Onset: 06-26-2011 Resolved: 09-03-2011 10-22-2013 Episodic Calculus of urinary tract (20 sources) Kidney stone; Translations: [Calculus of kidney] Onset: 09-02-2013 09-02-2013 Episodic Deficiency and other anemia (20 sources) Anemia; Translations: [Anemia, unspecified] Onset: 10-18-2010 10-18-2010 Episodic Diabetes mellitus without complication (20 sources) Impaired fasting glycemia; Translations: [Impaired fasting glucose] Onset: 03-30-2015 03-30-2015 Episodic Genitourinary symptoms and ill-defined conditions (20 sources) Increased frequency of urination; Translations: [Frequency of micturition] Onset: 09-02-2013 09-02-2013 Episodic Headache; including migraine (20 sources) Headache; Translations: [Cephalalgia] Onset: 11-28-2014 11-28-2014 Episodic Other aftercare (1 source) Other watcher automat long goods (current) drug therapy; Translations: [Encounter for long-term current use of medication] Onset: 11-28-2023 Episodic Other and ill-defined cerebrovascular disease (20 sources) Cerebrovascular disease; Translations: [Other cerebrovascular disease] Onset: 09-28-2005 Resolved: 12-28-2016 03-12-2021 Chronic Other and unspecified benign neoplasm (20 sources) [...] [Visible peristalsis] Onset: 06-23-2013 03-12-2021 Episodic Other injuries and conditions due to external causes (1 source) Encounter for examination and observation following other accident; Translations: [Encounter for examination and observation following other accident] Onset: 12-08-2023 Episodic Other lower respiratory disease (20 sources) Cough; Translations: [Cough] Onset: 07-11-2019 07-11-2019 Episodic Other nervous system disorders (20 sources) Postoperative pain ; Translations: [Other acute postprocedural pain] Onset: 06-26-2011 Resolved: 09-03-2011 03-12-2021 Episodic Other non-traumatic joint disorders (5 sources) Pain in right knee; Translations: [Other acute pain] Onset: 07-22-2023 07-22-2023 Episodic Other non-traumatic joint disorders (1 source) Pain in left knee; Translations: [Acute pain of both knees] Onset: 07-22-2023 Episodic Residual codes; unclassified (20 sources) Bilateral lower limb edema; Translations: [Localized edema] Onset: 07-11-2019 07-11-2019 Episodic Screening and history of mental health and substance abuse codes (1 source) Encounter for screening for depression; Translations: [Screening for depression] Onset: 01-23-2024 Episodic Results Test Name Value Interpretation Reference Range Facility Gastroenterology Visit Repor ton 06-18-2024 Gastroenterology Visit Report [facility] [address] [place] [address] OFFICE VISIT Date of Service: 06/18/24 MR#: [id number] Acct: [id number] Name: KESHIA ROJAS Rep #: [id number] : 1950 Provider: Raul Casper, Age/Sex: 74/F [place] [facility] [place] Status: Signed Intake Vital Signs 04/08/24 09:50 Height 5 ft 4 in Intake Visit Reasons: 4 M FU Allergies latex Allergy (Unknown, Verified 06/18/24 11:04) PT UNSURE OF REACTION adhesive Allergy (Verified 06/18/24 11:04) Unknown benzocaine (From Cetacaine) Allergy (Verified 06/18/24 11:04) Unknown butamben (From Cetacaine) Allergy (Verified 06/18/24 11:04) Vomiting cortisone (Cortisone) Allergy (Verified 06/18/24 11:04) Unknown dipyridamole (From Aggrenox) Allergy (Verified 06/18/24 11:04) Unknown lansoprazole (From Prevacid) Allergy (Verified 06/18/24 11:04) Unknown meclizine Allergy (Verified 06/18/24 11:04) Unknown methylprednisolone acetate (From Depo-Medrol) Allergy (Verified 06/18/24 11:04) Angioedema metoprolol Allergy (Verified 06/18/24 11:04) Unknown omeprazole (From Prilosec) Allergy (Verified 06/18/24 11:04) Unknown omeprazole magnesium (From Prilosec) Allergy (Verified 06/18/24 11:04) Unknown oxybutynin chloride (From Ditropan) Allergy (Verified 06/18/24 11:04) Unknown povidone-iodine (From Betadine) Allergy (Verified 06/18/24 11:04) Unknown sulfamethoxazole (From Bactrim) Allergy (Verified 06/18/24 11:04) Unknown tegaserod (From Zelnorm) Allergy (Verified 06/18/24 11:04) Hives tegaserod hydrogen maleate (From Zelnorm) Allergy (Verified 06/18/24 11:04) Unknown tetracaine (From Cetacaine) Allergy (Verified 06/18/24 11:04) Unknown tolterodine tartrate (From Detrol) Allergy (Verified 06/18/24 11:04) Unknown trimethoprim (From Bactrim) Allergy (Verified 06/18/24 11:04) Unknown lisinopril Adverse Reaction (Intermediate, Verified 06/18/24 11:04) Angioedema adhesive tape Adverse Reaction (Verified 06/18/24 11:04) Rash codeine Adverse Reaction (Verified 06/18/24 11:04) Unknown mirabegron (From Myrbetriq) Adverse Reaction (Verified 06/18/24 11:04) Other tizanidine Adverse Reaction (Verified 06/18/24 11:04) Other vaccine adjuvant system, AS01B liposomal (From Shingrix (PF)) Adverse Reaction (Verified 06/18/24 11:04) Rash varicella-zoster virus glycoprotein E, recombinant (From Shingrix (PF)) Adverse Reaction (Verified 06/18/24 11:04) Rash Medications ???Medication ???Instructions ???Recorded ???Confirmed ???Type gabapentin 100 mg capsule 300 mg PO QHS 01/11/14 06/18/24 Hi story diazepam 5 mg tablet 5 mg PO QHS PRN anxiety 01/13/19 0 06/18/24 History aspirin 81 mg tablet,delayed 81 mg PO DAILY@0800 02/09/1906/18 History release multivitamin 1 tab PO DAILY 04/08/19 06/18/24 H istory cholecalciferol (vitamin D3) 125 125 mcg PO DAILY 10/11/19 06/18/24 History mcg (5,000 unit) capsule inhalational spacing device #1 ea 10/11/19 06/18/24 Rx (BreatheRite MDI Spacer) acetaminophen 500 mg capsule 500 mg PO Q6H PRN Pain 05/05/22 History levothyroxine 88 mcg tablet 88 mcg PO DAILY 07/26/22 06/18/24 History ipratropium 0.5 mg-albuterol 3 mg 3 ml inhalation Q4H PRN PRN SOB 0 10/02/22 06/18/24 Rx (2.5 mg base)/3 mL nebulization /OR WHEEZING #180 mL soln amlodipine 5 mg tablet 2.5 mg PO DAILY 01/31/23 06/18/24 History cranberry fruit concentrate 250 mg 250 mg PO DAILY 01/31/23 5 History chewable tablet (Azo Cranberry) pantoprazole 40 mg tablet,delayed 40 mg PO BID 90 days #180 tabs 06/18/24 Rx release spironolactone 25 mg tablet 25 mg PO 1700 PRN 08/15/23 5 History budesonide 0.5 mg/2 mL suspension 0.5 mg (2 mL) inhalation Q12H #12 0 10/15/23 06/18/24 Rx for nebulization mL hydrocortisone 2.5 % topical cream 1 applic topical QDAY 12/01/23 0 06/18/24 History with perineal applicator lactulose 20 gram/30 mL oral 20 g (30 mL) PO QHS 90 days #2,700 02/20/24 06/18/24 Rx solution mL benzonatate 100 mg capsule 100 - 200 mg PO TID PRN cough 02/1506/18/24 History Have you fallen in the past year?: [facility] History Loss of hearing Wears glasses Wears partial dentures Post-menopausal Anxiety Thyroid disease Ambulates with cane Urinary incontinence Difficulty swallowing Gastric reflux Non-smoker History of echocardiogram History of stress test Seasonal allergies Hoarseness Leg cramps History of edema Shortness of breath on exertion Cardiology follow-up encounter History of cataract Ganglion cyst Atherosclerotic heart disease of [place] coronary artery without angina pectoris Cholelithiasis with chronic cholecystitis Cholecystitis Pancreatitis, gallstone Galls (more content not included)... Normal [facility] HIP, UNI W/ Pelvis 2-3 Views on 06-18-2024 HIP, UNI W/ Pelvis 2-3 Views [facility] Imaging Services [address] [place] [address] HIP, UNI W/ Pelvis 2-3 Views MR#: [id number] Acct: [id number] Name: KESHIA ROJAS Rep #: [id number] : 1950 F 74 From: Davon Epstein MD PCP: Dr. Paulo Scott MD Status: DEP AMB Study: HIP, UNI W/ Pelvis 2-3 Views Date of Exam: 07/09 Exam# [id number] Ordering Dr: Callum Trimble DO PROCEDURE: HIP, UNI W/ PELVIS 2-3 VIEWS 06/18/2024 REASON FOR EXAM: LOW BACK PAIN, RADIATED TO LEFT HIP TECHNIQUE: AP pelvis and two views left hip, 3 total images FINDINGS: No fracture or dislocation. SI joint degenerative changes. Pubic symphysis appears within limits. Left hip appears within limits without significant appearing joint space narrowing. L5-S1 posterior fusion and likely intervertebral disc spacer. RAD/HIP, UNI W/ Pelvis 2-3 Views IMPRESSION: No fracture or dislocation. Left hip appears within limits without significant appearing joint space narrowing. Reading Location: [facility] CC: Dr. Callum Trimble DO; Dr. Paulo Scott MD Literary Agent: Signed Normal [facility] Lumbar Spine 2 or 3 Viewson 06-18-2024 Lumbar Spine 2 or 3 Views [facility] Imaging Services [address] [place] [address] [id number] Lumbar Spine 2 or 3 Views MR#: [id number] Acct: [id number] Name: KESHIA ROJAS Rep #: [id number] : 1950 F 74 From: Davon Epstein MD PCP: Dr. Paulo Scott MD Status: DEP AMB Study: Lumbar Spine 2 or 3 Views Date of Exam: Exam# [id number] Ordering Dr: Callum Trimble DO PROCEDURE: LUMBAR SPINE 2 OR 3 VIEWS 06/18/2024 REASON FOR EXAM: LOW BACK PAIN, RADIATED TO LEFT HIP TECHNIQUE: 2 view(s) of the lumbar spine FINDINGS: 5 [id number]-[id number] lumbar vertebral body types identified. A moderate rightward curvature with apex L4-5. No fracture identified. Pssqcehz-xf-foemps disc space narrowing L4-5 with approximately 6-7 mm of anterolisthesis L4 on 5 and 6 mm of right lateral listhesis L4 on 5. 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 RAD/Lumbar Spine 2 or 3 Views IMPRESSION: A moderate rightward curvature with apex L4-5. No fracture identified. Nnddvwaj-bb-eesdnk disc space narrowing L4-5 with approximately 6-7 mm of anterolisthesis L4 on 5 and 6 mm of right lateral listhesis L4 on 5. 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 Reading Location: [id number] CC: Dr. Callum Trimble DO; Dr. Paulo Scott MD Literary Agent: Signed Normal [facility] Orthopedic Visit Reporton Orthopedic Visit Report [facility] [address] [place] [address] OFFICE VISIT Date of Service: 06/18/24 MR#: [id number] Acct: [id number] Name: KESHIA ROJAS Rep #: [id number] : 1950 Provider: Dr. Callum molina DO Age/Sex: 74/F [place] [facility] [place] Status: Signed Intake Vital Signs 04/08/24 09:50 Height 5 ft 4 in Intake Visit Reasons: LEFT HIP Allergies latex Allergy (Unknown, Verified 06/18/24 11:04) PT UNSURE OF REACTION adhesive Allergy (Verified 06/18/24 11:04) Unknown benzocaine (From Cetacaine) Allergy (Verified 06/18/24 11:04) Unknown butamben (From Cetacaine) Allergy (Verified 06/18/24 11:04) Vomiting cortisone (Cortisone) Allergy (Verified 06/18/24 11:04) Unknown dipyridamole (From Aggrenox) Allergy (Verified 06/18/24 11:04) Unknown lansoprazole (From Prevacid) Allergy (Verified 06/18/24 11:04) Unknown meclizine Allergy (Verified 06/18/24 11:04) Unknown methylprednisolone acetate (From Depo-Medrol) Allergy (Verified 06/18/24 11:04) Angioedema metoprolol Allergy (Verified 06/18/24 11:04) Unknown omeprazole (From Prilosec) Allergy (Verified 06/18/24 11:04) Unknown omeprazole magnesium (From Prilosec) Allergy (Verified 06/18/24 11:04) Unknown oxybutynin chloride (From Ditropan) Allergy (Verified 06/18/24 11:04) Unknown povidone-iodine (From Betadine) Allergy (Verified 06/18/24 11:04) Unknown sulfamethoxazole (From Bactrim) Allergy (Verified 06/18/24 11:04) Unknown tegaserod (From Zelnorm) Allergy (Verified 06/18/24 11:04) Hives tegaserod hydrogen maleate (From Zelnorm) Allergy (Verified 06/18/24 11:04) Unknown tetracaine (From Cetacaine) Allergy (Verified 06/18/24 11:04) Unknown tolterodine tartrate (From Detrol) Allergy (Verified 06/18/24 11:04) Unknown trimethoprim (From Bactrim) Allergy (Verified 06/18/24 11:04) Unknown lisinopril Adverse Reaction (Intermediate, Verified 06/18/24 11:04) Angioedema adhesive tape Adverse Reaction (Verified 06/18/24 11:04) Rash codeine Adverse Reaction (Verified 06/18/24 11:04) Unknown mirabegron (From Myrbetriq) Adverse Reaction (Verified 06/18/24 11:04) Other tizanidine Adverse Reaction (Verified 06/18/24 11:04) Other vaccine adjuvant system, AS01B liposomal (From Shingrix (PF)) Adverse Reaction (Verified 06/18/24 11:04) Rash varicella-zoster virus glycoprotein E, recombinant (From Shingrix (PF)) Adverse Reaction (Verified 06/18/24 11:04) Rash Medications ???Medication ???Instructions ???Recorded ???Confirmed ???Type gabapentin 100 mg capsule 300 mg PO QHS 01/11/14 06/18/24 Hi story diazepam 5 mg tablet 5 mg PO QHS PRN anxiety 01/13/19 0 06/18/24 History aspirin 81 mg tablet,delayed 81 mg PO DAILY@0800 02/09/1906/18 History release multivitamin 1 tab PO DAILY 04/08/19 06/18/24 H istory cholecalciferol (vitamin D3) 125 125 mcg PO DAILY 10/11/19 06/18/24 History mcg (5,000 unit) capsule inhalational spacing device #1 ea 10/11/19 06/18/24 Rx (BreatheRite MDI Spacer) acetaminophen 500 mg capsule 500 mg PO Q6H PRN Pain 05/05/22 History levothyroxine 88 mcg tablet 88 mcg PO DAILY 07/26/22 06/18/24 History ipratropium 0.5 mg-albuterol 3 mg 3 ml inhalation Q4H PRN PRN SOB 0 10/02/22 06/18/24 Rx (2.5 mg base)/3 mL nebulization /OR WHEEZING #180 mL soln amlodipine 5 mg tablet 2.5 mg PO DAILY 01/31/23 06/18/24 History cranberry fruit concentrate 250 mg 250 mg PO DAILY 01/31/23 5 History chewable tablet (Azo Cranberry) pantoprazole 40 mg tablet,delayed 40 mg PO BID 90 days #180 tabs 06/18/24 Rx release spironolactone 25 mg tablet 25 mg PO 1700 PRN 08/15/23 5 History budesonide 0.5 mg/2 mL suspension 0.5 mg (2 mL) inhalation Q12H #12 0 10/15/23 06/18/24 Rx for nebulization mL hydrocortisone 2.5 % topical cream 1 applic topical QDAY 12/01/23 0 06/18/24 History with perineal applicator lactulose 20 gram/30 mL oral 20 g (30 mL) PO QHS 90 days #2,700 02/20/24 06/18/24 Rx solution mL benzonatate 100 mg capsule 100 - 200 mg PO TID PRN cough 02/1506/18/24 History Have you fallen in the past year?: No PFSH Medical History Loss of hearing Wears glasses Wears partial dentures Post-menopausal Anxiety Thyroid disease Ambulates with cane Urinary incontinence Difficulty swallowing Gastric reflux Non-smoker History of echocardiogram History of stress test Seasonal allergies Hoarseness Leg cramps History of edema Shortness of breath on exertion Cardiology follow-up encounter History of cataract Ganglion cyst Atherosclerotic heart disease of [place] coronary artery without angina pectoris Cholelithiasis with chronic cholecystitis Chol (more content not included)... Normal [facility] Shoulder min 2 Viewson 05-26 Shoulder min 2 Views [facility] [address] [place] [address] Shoulder min 2 Views MR#: [id number] Acct: [id number] Name: KESHIA ROJAS Rep #: [id number] : 1950 F 74 From: Venkata cedeño MD PCP: Dr. Paulo Scott MD Status: REG CLI Study: Shoulder min 2 Views Date of Exam: 05/26/24 Exam# [id number] Ordering Dr: Crystal Paz MD PROCEDURE: SHOULDER MIN 2 VIEWS REASON FOR EXAM: Left shoulder pain. Limited range of motion. TECHNIQUE: Four views of the left shoulder were obtained. COMPARISON: Comparison is made with prior study dated June 17, 2020. FINDINGS: Left SHOULDER: No fracture. No suspicious bone lesion. Moderate degree of joint space of the glenohumeral joint. Degenerative changes of the acromioclavicular joint. Irregularity of the greater tuberosity is suggestive of possible old Hill-Sachs deformity. Soft tissues are unremarkable. RAD/Shoulder min 2 Views IMPRESSION: DEGENERATIVE OSTEOARTHROSIS. NO ACUTE FINDINGS. Findings suggestive of old Hill-Sachs deformity of the greater tuberosity of the proximal left humerus. Reading Location: [facility] CC: Dr. Crystal Paz MD; Dr. Paulo Scott MD Literary Agent: Signed Normal [facility] CNOVon 05-21-2024 CNOV Office Visit (INTMWS ) ----- KESHIA ROJAS ([id number]) 1950 F Date Time Provider Department 05/21/24 1:20 PM JUAN RODRIGUEZ INTMWS During your visit today, we recorded the following information about you: Pulse Respiration Blood pressure Weight 76/minute 16/minute 128/82 92 kg Juan Rodriguez APRN.AIRPLANE DISPATCHER 05/24/2024 7:54 AM Signed SUBJECTIVE: Shingrix Vaccine(2 of 3) due on 05/01/2012 DTaP,Tdap,Td Vaccine(1 - Tdap) due on 11/19/2019 HPI Keshia Rojas is a 74 year old female. PMH significant for ACTIVE [...] today for routine follow up visit. She is in her usual state of health. Diet: tries to eat a healthy diet Exercise: Active continues to work Weight: Increased CAD: Without complaint of chest pain or shortness of breath. She notes getting injections left knee Dr. [facility]. Notes chronic left should pain was increased, now back at baseline. Notes financial constraints, states if she doesn't work she doesn't eat.States spent all of their money. Hypothyroidism. She doing well on her current dose of Synthroid. TSH Date Value 08/29/2023 2.640 mIU/L 02/19/2023 3.670 mIU/L 01/13/2021 2.780 uU/mL 03/16/2020 3.460 uU/mL ) HTN: Without report headache, chest pain, palpitations, dyspnea, peripheral edema, orthopnea, fatigue, and PND. Last 3 Encounter BP Readings: Date: BP: 01/23/2024 128/78 10/17/2023 128/66 09/17/2023 128/78 Hyperlipidemia. Ms. Rojas reports doing well on current therapy. Her most recent lipid panels are: Cholesterol, Total (mg/dL) Date Value 11/28/2023 184 08/29/2023 192 01/13/2021 177 12/10/2019 171 HDL Cholesterol (mg/dL) Date Value 11/28/2023 60 08/29/2023 57 01/13/2021 51 12/10/2019 53 LDL Cholesterol (mg/dL) Date Value 11/28/2023 106 08/29/2023 118 01/13/2021 109 12/10/2019 102 Triglyceride (mg/dL) Date Value 11/28/2023 88 08/29/2023 87 01/13/2021 85 12/10/2019 80 GERD/Barretts: Stable, no current complaints. Following with Dr. Casper. No recent EGD is reported. No upcoming appointmnt with gastroenterology. Review of Systems Constitutional: Negative. HENT: Negative. Respiratory: Negative. Cardiovascular: Negative. Musculoskeletal: Positive for arthralgias. Objective BP 128/82 Pulse 76 Resp 16 Wt 92 kg (202 lb 13.2 oz) BMI 34.81 kg/m? Physical Exam Vitals and nursing note [...] and oriented to person, place, and time. Senior Sourcing Manager present, NIMO. ALLERGIES Allergen Reactions Adhesive Rash ECG patch [...] mandibular pain, lymphadenopathy, possible angio edema per [facility] ER note 04/24/2022 Meclizine Swelling URI (more content not included)... Normal [facility] Orthopedic Visit Reporton Orthopedic Visit Report [facility] [address] [place] [address] OFFICE VISIT Date of Service: 04/16/24 MR#: [id number] Acct: [id number] Name: KESHIA ROJAS Rep #: [id number] : 1950 Provider: Dr. Callum molina DO Age/Sex: 74/F [place] [facility] [place] Status: Signed Intake Vital Signs 03/12/24 10:36 Height 5 ft 4 in Intake Visit Reasons: RIGHT KNEE Chief Complaint: 3rd Euflexxa right knee Is patient in pain?: No Allergies latex Allergy (Unknown, Verified 04/16/24 09:26) PT UNSURE OF REACTION adhesive Allergy (Verified 04/16/24 09:26) Unknown benzocaine (From Cetacaine) Allergy (Verified 04/16/24 09:26) Unknown butamben (From Cetacaine) Allergy (Verified 04/16/24 09:26) Vomiting cortisone (Cortisone) Allergy (Verified 04/16/24 09:26) Unknown dipyridamole (From Aggrenox) Allergy (Verified 04/16/24 09:26) Unknown lansoprazole (From Prevacid) Allergy (Verified 04/16/24 09:26) Unknown meclizine Allergy (Verified 04/16/24 09:26) Unknown methylprednisolone acetate (From Depo-Medrol) Allergy (Verified 04/16/24 09:26) Angioedema metoprolol Allergy (Verified 04/16/24 09:26) Unknown omeprazole (From Prilosec) Allergy (Verified 04/16/24 09:26) Unknown omeprazole magnesium (From Prilosec) Allergy (Verified 04/16/24 09:26) Unknown oxybutynin chloride (From Ditropan) Allergy (Verified 04/16/24 09:26) Unknown povidone-iodine (From Betadine) Allergy (Verified 04/16/24 09:26) Unknown sulfamethoxazole (From Bactrim) Allergy (Verified 04/16/24 09:26) Unknown tegaserod (From Zelnorm) Allergy (Verified 04/16/24 09:26) Hives tegaserod hydrogen maleate (From Zelnorm) Allergy (Verified 04/16/24 09:26) Unknown tetracaine (From Cetacaine) Allergy (Verified 04/16/24 09:26) Unknown tolterodine tartrate (From Detrol) Allergy (Verified 04/16/24 09:26) Unknown trimethoprim (From Bactrim) Allergy (Verified 04/16/24 09:26) Unknown lisinopril Adverse Reaction (Intermediate, Verified 04/16/24 09:26) Angioedema adhesive tape Adverse Reaction (Verified 04/16/24 09:26) Rash codeine Adverse Reaction (Verified 04/16/24 09:26) Unknown mirabegron (From Myrbetriq) Adverse Reaction (Verified 04/16/24 09:26) Other tizanidine Adverse Reaction (Verified 04/16/24 09:26) Other vaccine adjuvant system, AS01B liposomal (From Shingrix (PF)) Adverse Reaction (Verified 04/16/24 09:26) Rash varicella-zoster virus glycoprotein E, recombinant (From Shingrix (PF)) Adverse Reaction (Verified 04/16/24 09:26) Rash Medications ???Medication ???Instructions ???Recorded ???Confirmed ???Type gabapentin 100 mg capsule 300 mg PO QHS 01/11/14 04/16/24 Hi story diazepam 5 mg tablet 5 mg PO QHS PRN anxiety 01/13/19 0 04/16/24 History aspirin 81 mg tablet,delayed 81 mg PO DAILY@0800 02/09/1904/16 History release multivitamin 1 tab PO DAILY 04/08/19 04/16/24 H istory cholecalciferol (vitamin D3) 125 125 mcg PO DAILY 10/11/19 04/16/24 History mcg (5,000 unit) capsule inhalational spacing device #1 ea 10/11/19 04/16/24 Rx (BreatheRite MDI Spacer) acetaminophen 500 mg capsule 500 mg PO Q6H PRN Pain 05/05/22 History levothyroxine 88 mcg tablet 88 mcg PO DAILY 07/26/22 04/16/24 History ipratropium 0.5 mg-albuterol 3 mg 3 ml inhalation Q4H PRN PRN SOB 0 10/02/22 04/16/24 Rx (2.5 mg base)/3 mL nebulization /OR WHEEZING #180 mL soln amlodipine 5 mg tablet 2.5 mg PO DAILY 01/31/23 04/16/24 History cranberry fruit concentrate 250 mg 250 mg PO DAILY 01/31/23 5 History chewable tablet (Azo Cranberry) pantoprazole 40 mg tablet,delayed 40 mg PO BID 90 days #180 tabs 04/16/24 Rx release spironolactone 25 mg tablet 25 mg PO 1700 PRN 08/15/23 5 History budesonide 0.5 mg/2 mL suspension 0.5 mg (2 mL) inhalation Q12H #12 0 10/15/23 04/16/24 Rx for nebulization mL hydrocortisone 2.5 % topical cream 1 applic topical QDAY 12/01/23 0 04/16/24 History with perineal applicator lactulose 20 gram/30 mL oral 20 g (30 mL) PO QHS 90 days #2,700 02/20/24 04/16/24 Rx solution mL benzonatate 100 mg capsule 100 - 200 mg PO TID PRN cough 02/1504/16/24 History Have you fallen in the past year?: No PFSH Medical History Loss of hearing Wears glasses Wears partial dentures Post-menopausal Anxiety Thyroid disease Ambulates with cane Urinary incontinence Difficulty swallowing Gastric reflux Non-smoker History of echocardiogram History of stress test Seasonal allergies Hoarseness Leg cramps History of edema Shortness of breath on exertion Cardiology follow-up encounter History of cataract Ganglion cyst Atherosclerotic heart disease of [place] coronary artery with (more content not included)... Normal [facility] Orthopedic Visit Reporton Orthopedic Visit Report [facility] [place] [address] OFFICE VISIT Date of Service: 04/09/24 MR#: [id number] Acct: [id number] Name: KESHIA ROJAS Rep #: [id number] : 1950 Provider: Dr. 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 Allergies latex Allergy (Unknown, Verified 04/09/24 10:42) PT UNSURE OF REACTION adhesive Allergy (Verified 04/09/24 10:42) Unknown benzocaine (From Cetacaine) Allergy (Verified 04/09/24 10:42) Unknown butamben (From Cetacaine) Allergy (Verified 04/09/24 10:42) Vomiting cortisone (Cortisone) Allergy (Verified 04/09/24 10:42) Unknown dipyridamole (From Aggrenox) Allergy (Verified 04/09/24 10:42) Unknown lansoprazole (From Prevacid) Allergy (Verified 04/09/24 10:42) Unknown meclizine Allergy (Verified 04/09/24 10:42) Unknown methylprednisolone acetate (From Depo-Medrol) Allergy (Verified 04/09/24 10:42) Angioedema metoprolol Allergy (Verified 04/09/24 10:42) Unknown omeprazole (From Prilosec) Allergy (Verified 04/09/24 10:42) Unknown omeprazole magnesium (From Prilosec) Allergy (Verified 04/09/24 10:42) Unknown oxybutynin chloride (From Ditropan) Allergy (Verified 04/09/24 10:42) Unknown povidone-iodine (From Betadine) Allergy (Verified 04/09/24 10:42) Unknown sulfamethoxazole (From Bactrim) Allergy (Verified 04/09/24 10:42) Unknown tegaserod (From Zelnorm) Allergy (Verified 04/09/24 10:42) Hives tegaserod hydrogen maleate (From Zelnorm) Allergy (Verified 04/09/24 10:42) Unknown tetracaine (From Cetacaine) Allergy (Verified 04/09/24 10:42) Unknown tolterodine tartrate (From Detrol) Allergy (Verified 04/09/24 10:42) Unknown trimethoprim (From Bactrim) Allergy (Verified 04/09/24 10:42) Unknown lisinopril Adverse Reaction (Intermediate, Verified 04/09/24 10:42) Angioedema adhesive tape Adverse Reaction (Verified 04/09/24 10:42) Rash codeine Adverse Reaction (Verified 04/09/24 10:42) Unknown mirabegron (From Myrbetriq) Adverse Reaction (Verified 04/09/24 10:42) Other tizanidine Adverse Reaction (Verified 04/09/24 10:42) Other vaccine adjuvant system, AS01B liposomal (From Shingrix (PF)) Adverse Reaction (Verified 04/09/24 10:42) Rash varicella-zoster virus glycoprotein E, recombinant (From Shingrix (PF)) Adverse Reaction (Verified 04/09/24 10:42) Rash Medications ???Medication ???Instructions ???Recorded ???Confirmed ???Type gabapentin 100 mg capsule 300 mg PO QHS 01/11/14 04/09/24 History diazepam 5 mg tablet 5 mg PO QHS PRN anxiety 01/13/19 04/09/24 History aspirin 81 mg tablet,delayed 81 mg PO DAILY@0800 02/09/19 04/09/24 History release multivitamin 1 tab PO DAILY 04/08/19 04/09/24 History cholecalciferol (vitamin D3) 125 125 mcg PO DAILY 10/11/19 04/09/24 History mcg (5,000 unit) capsule inhalational spacing device #1 ea 10/11/19 04/09/24 Rx (BreatheRite MDI Spacer) acetaminophen 500 mg capsule 500 mg PO Q6H PRN Pain 05/05/22 04/09/24 History levothyroxine 88 mcg tablet 88 mcg PO DAILY 07/26/22 04/09/24 History ipratropium 0.5 mg-albuterol 3 mg 3 ml inhalation Q4H PRN PRN SOB 10/02/22 04/09/24 Rx (2.5 mg base)/3 mL nebulization /OR WHEEZING #180 mL soln amlodipine 5 mg tablet 2.5 mg PO DAILY 01/31/23 04/09/24 History cranberry fruit concentrate 250 mg 250 mg PO DAILY 01/31/23 04/09/24 History chewable tablet (Azo Cranberry) pantoprazole 40 mg tablet,delayed 40 mg PO BID 90 days #180 tabs 08/15/23 04/09/24 Rx release spironolactone 25 mg tablet 25 mg PO 1700 PRN 08/15/23 04/09/24 History budesonide 0.5 mg/2 mL suspension 0.5 mg (2 mL) inhalation Q12H #120 10/15/23 04/09/24 Rx for nebulization mL hydrocortisone 2.5 % topical cream 1 applic topical QDAY 12/01/23 04/09/24 History with perineal applicator lactulose 20 gram/30 mL oral 20 g (30 mL) PO QHS 90 days #2,700 02/20/24 04/09/24 Rx solution mL benzonatate 100 mg capsule 100 - 200 mg PO TID PRN cough 03/12/24 04/09/24 History Have you fallen in the past year?: No PFSH Medical History Loss of hearing Wears glasses Wears partial dentures Post-menopausal Anxiety Thyroid disease Ambulates with cane Urinary incontinence Difficulty swallowing Gastric reflux Non-smoker History of echocardiogram History of stress test Seasonal allergies Hoarseness Leg cramps History of edema Shortness of breath on exertion Cardiology follow-up encounter History of cataract Ganglion cyst Atherosclerotic heart disease of [place] coronary artery without angina pectoris Cholelithiasis with c (more content not included)... Normal [facility] Enterography Abd/Brody 04-08 Enterography Abd/Pel [facility] [address] [place] [address] Enterography Abd/Pel MR#: [id number] Acct: [id number] Name: KESHIA ROJAS Rep #: [id number] : 1950 F 74 From: Lawson umanzor MD PCP: Dr. Paulo Scott MD Status: [facility] Study: Enterography Abd/Pel Date of Exam: 04/08/24 Exam# [id number] Ordering Dr: Raul Casper DO [id number] STUDY: MR ENTEROGRAPHY WITH CONTRAST REASON FOR EXAM: Female, 74 years old. R19.7 - Diarrhea, unspecified TECHNIQUE: Multipulse sequence MRI performed with IV contrast according to standard MR enterography protocol following administration of oral contrast for maximal bowel distention. Images were obtained from the dome of the diaphragm to the symphysis pubis. 19ML IV CLARISCN was administered intravenously. TECHNICAL QUALITY: Image Quality: Satisfactory Small Bowel Distension: Adequate. COMPARISON: Right upper quadrant ultrasound and 03/09/2018.. FINDINGS: Bowel: Bowel wall thickening: Absent. Skip lesions: None. Vascularity: Normal. Enhancement: Normal. Fistula: None. Abscess: None. Other Findings: The visualized lung bases are unremarkable. The visualized portions of the heart are within normal limits. Normal liver. Prior cholecystectomy. Normal spleen. Normal pancreas. Normal bilateral adrenal glands. Multiple small nonenhancing simple cysts are present throughout the right kidney. A few cysts are also present on the left. No visualized renal masses or malignant process. No hydronephrosis is present. No follow-up imaging of these cysts are required. There is a small hiatal hernia. Normal small intestine. Normal colon. No visualized bowel dilatation or obstruction. No inflammatory stranding is seen. No bowel masses are present. No visualized bowel wall thickening or abnormal fistulous connection with the bowel loops or adjacent structures. There is diffuse atherosclerotic calcification of the abdominal aorta, without a demonstrated aneurysm. Normal inferior vena cava. Normal retroperitoneum. Normal urinary bladder. Several small uterine fibroids are present. The adnexa is unremarkable. Chronic postoperative changes of the anterior abdominal wall from prior surgical intervention. There are diffuse degenerative changes of the visualized lumbar spine. MRI/Enterography Abd/Pel IMPRESSION: 1. Normal MR enterography. 2. Small hiatal hernia. 3. Normal small intestine. Normal colon. No visualized bowel dilatation or obstruction. No inflammatory stranding is seen. No bowel masses are present. No visualized bowel wall thickening or abnormal fistulous connection with the bowel loops or adjacent structures. MR enterography References: Active bowel inflammation causes restricted diffusion on diffusion-weighted images which appears as bright signal. Electronically Signed: Lawson Parsons MD at 12:44 EST Reading Location ID and State: [facility] / [place] , Service support , CC: Dr. Paulo Scott MD; Raul Casper DO Literary Agent: Signed Normal [facility] Orthopedic Visit Reporton Orthopedic Visit Report [facility] [address] [place] [address] [address] [place] [address] OFFICE VISIT Date of Service: 04/02/24 MR#: [id number] Acct: [id number] Name: KESHIA ROJAS Rep #: [id number] : 1950 Provider: Dr. Callum molina DO Age/Sex: 74/F [place] [facility] [place] Status: Signed Intake Vital Signs 03/12/24 10:36 Height 5 ft 4 in Weight: 203 lb 2 oz BMI 34.8 Intake Visit Reasons: RIGHT KNEE Chief Complaint: Right Knee pain Is patient in pain?: Yes (right knee) Pain scale (1-10): 6 Allergies latex Allergy (Unknown, Verified 04/02/24 09:07) PT UNSURE OF REACTION adhesive Allergy (Verified 04/02/24 09:07) Unknown benzocaine (From Cetacaine) Allergy (Verified 04/02/24 09:07) Unknown butamben (From Cetacaine) Allergy (Verified 04/02/24 09:07) Vomiting cortisone (Cortisone) Allergy (Verified 04/02/24 09:07) Unknown dipyridamole (From Aggrenox) Allergy (Verified 04/02/24 09:07) Unknown lansoprazole (From Prevacid) Allergy (Verified 04/02/24 09:07) Unknown meclizine Allergy (Verified 04/02/24 09:07) Unknown methylprednisolone acetate (From Depo-Medrol) Allergy (Verified 04/02/24 09:07) Angioedema metoprolol Allergy (Verified 04/02/24 09:07) Unknown omeprazole (From Prilosec) Allergy (Verified 04/02/24 09:07) Unknown omeprazole magnesium (From Prilosec) Allergy (Verified 04/02/24 09:07) Unknown oxybutynin chloride (From Ditropan) Allergy (Verified 04/02/24 09:07) Unknown povidone-iodine (From Betadine) Allergy (Verified 04/02/24 09:07) Unknown sulfamethoxazole (From Bactrim) Allergy (Verified 04/02/24 09:07) Unknown tegaserod (From Zelnorm) Allergy (Verified 04/02/24 09:07) Hives tegaserod hydrogen maleate (From Zelnorm) Allergy (Verified 04/02/24 09:07) Unknown tetracaine (From Cetacaine) Allergy (Verified 04/02/24 09:07) Unknown tolterodine tartrate (From Detrol) Allergy (Verified 04/02/24 09:07) Unknown trimethoprim (From Bactrim) Allergy (Verified 04/02/24 09:07) Unknown lisinopril Adverse Reaction (Intermediate, Verified 04/02/24 09:07) Angioedema adhesive tape Adverse Reaction (Verified 04/02/24 09:07) Rash codeine Adverse Reaction (Verified 04/02/24 09:07) Unknown mirabegron (From Myrbetriq) Adverse Reaction (Verified 04/02/24 09:07) Other tizanidine Adverse Reaction (Verified 04/02/24 09:07) Other vaccine adjuvant system, AS01B liposomal (From Shingrix (PF)) Adverse Reaction (Verified 04/02/24 09:07) Rash varicella-zoster virus glycoprotein E, recombinant (From Shingrix (PF)) Adverse Reaction (Verified 04/02/24 09:07) Rash Medications ???Medication ???Instructions ???Recorded ???Confirmed ???Type gabapentin 100 mg capsule 300 mg PO QHS 01/11/14 04/02/24 History diazepam 5 mg tablet 5 mg PO QHS PRN anxiety 01/13/19 04/02/24 History aspirin 81 mg tablet,delayed 81 mg PO DAILY@0800 02/09/19 04/02/24 History release multivitamin 1 tab PO DAILY 04/08/19 04/02/24 History cholecalciferol (vitamin D3) 125 125 mcg PO DAILY 10/11/19 04/02/24 History mcg (5,000 unit) capsule inhalational spacing device #1 ea 10/11/19 04/02/24 Rx (BreatheRite MDI Spacer) acetaminophen 500 mg capsule 500 mg PO Q6H PRN Pain 05/05/22 04/02/24 History levothyroxine 88 mcg tablet 88 mcg PO DAILY 07/26/22 04/02/24 History ipratropium 0.5 mg-albuterol 3 mg 3 ml inhalation Q4H PRN PRN SOB 10/02/22 04/02/24 Rx (2.5 mg base)/3 mL nebulization /OR WHEEZING #180 mL soln amlodipine 5 mg tablet 2.5 mg PO DAILY 01/31/23 04/02/24 History cranberry fruit concentrate 250 mg 250 mg PO DAILY 01/31/23 04/02/24 History chewable tablet (Azo Cranberry) pantoprazole 40 mg tablet,delayed 40 mg PO BID 90 days #180 tabs 08/15/23 04/02/24 Rx release spironolactone 25 mg tablet 25 mg PO 1700 PRN 08/15/23 04/02/24 History budesonide 0.5 mg/2 mL suspension 0.5 mg (2 mL) inhalation Q12H #120 10/15/23 04/02/24 Rx for nebulization mL hydrocortisone 2.5 % topical cream 1 applic topical QDAY 12/01/23 04/02/24 History with perineal applicator lactulose 20 gram/30 mL oral 20 g (30 mL) PO QHS 90 days #2,700 02/20/24 04/02/24 Rx solution mL benzonatate 100 mg capsule 100 - 200 mg PO TID PRN cough 03/12/24 04/02/24 History Have you fallen in the past year?: No [facility] Medical History Loss of hearing Wears glasses Wears partial dentures Post-menopausal Anxiety Thyroid disease Ambulates with cane Urinary incontinence Difficulty swallowing Gastric reflux Non-smoker History of echocardiogram History of stress test Seasonal allergies Hoarseness Leg cramps History of edema Shortness of breath on exertion Cardiology follow-up encounter History of cataract Ganglion cyst Atherosclerotic heart disease of nativ (more content not included)... Normal [facility] Knee 4 or More Viewson 03-12 Knee 4 or More Views [facility] [address] [place] [address] Knee 4 or More Views MR#: [id number] Acct: [id number] Name: KESHIA ROJAS Rep #: [id number] : 1950 F 74 From: Jose R Quintero MD PCP: Dr. Paulo Scott MD Status: DEP AMB Study: Knee 4 or More Views Date of Exam: 03/12/24 Exam# [id number] Ordering Dr: Callum Trimble DO [id number] INDICATION: Pain EXAMINATION/TECHNIQUE: X-RAY - RIGHT XR Knee Complete 4 Views or More COMPARISON: 05/05/2022 right knee radiographs knee radiographs. FINDINGS: 4 views of the right knee. BONES: Normal anatomic alignment without evidence of fracture or subluxation. No concerning bony lesion or abnormal sclerosis to suggest lesion. JOINTS: Moderate lateral compartment degenerative change with medial and lateral osteophyte formation. SOFT TISSUES: Unremarkable. RAD/Knee 4 or More Views IMPRESSION: Stable degenerative change of the right knee without acute osseous abnormality. Electronically Signed: Jose R Quintero MD at 0:43 EST , CC: Dr. Callum Trimble DO; Dr. Paulo Scott MD Literary Agent: Signed Normal [facility] Orthopedic Visit Reporton Orthopedic Visit Report [facility] [address] [place] [address] OFFICE VISIT Date of Service: 03/12/24 MR#: [id number] Acct: [id number] Name: KESHIA ROJAS Rep #: [id number] : 1950 Provider: Dr. Callum Woodall so, DO Age/Sex: 74/F [place] [facility] [place] Status: Signed Intake Vital Signs 01/14/24 10:44 03/12/24 10:36 Height 5 ft 4 in 5 ft 4 in Weight: 203 lb 2 oz BMI 34.8 Intake Visit Reasons: RIGHT KNEE Chief Complaint: Right Knee Pain Accompanied by: Self Is patient in pain?: Yes Allergies latex Allergy (Unknown, Verified 03/12/24 10:41) PT UNSURE OF REACTION adhesive Allergy (Verified 03/12/24 10:41) Unknown benzocaine (From Cetacaine) Allergy (Verified 03/12/24 10:41) Unknown butamben (From Cetacaine) Allergy (Verified 03/12/24 10:41) Vomiting cortisone (Cortisone) Allergy (Verified 03/12/24 10:41) Unknown dipyridamole (From Aggrenox) Allergy (Verified 03/12/24 10:41) Unknown lansoprazole (From Prevacid) Allergy (Verified 03/12/24 10:41) Unknown meclizine Allergy (Verified 03/12/24 10:41) Unknown methylprednisolone acetate (From Depo-Medrol) Allergy (Verified 03/12/24 10:41) Angioedema metoprolol Allergy (Verified 03/12/24 10:41) Unknown omeprazole (From Prilosec) Allergy (Verified 03/12/24 10:41) Unknown omeprazole magnesium (From Prilosec) Allergy (Verified 03/12/24 10:41) Unknown oxybutynin chloride (From Ditropan) Allergy (Verified 03/12/24 10:41) Unknown povidone-iodine (From Betadine) Allergy (Verified 03/12/24 10:41) Unknown sulfamethoxazole (From Bactrim) Allergy (Verified 03/12/24 10:41) Unknown tegaserod (From Zelnorm) Allergy (Verified 03/12/24 10:41) Hives tegaserod hydrogen maleate (From Zelnorm) Allergy (Verified 03/12/24 10:41) Unknown tetracaine (From Cetacaine) Allergy (Verified 03/12/24 10:41) Unknown tolterodine tartrate (From Detrol) Allergy (Verified 03/12/24 10:41) Unknown trimethoprim (From Bactrim) Allergy (Verified 03/12/24 10:41) Unknown lisinopril Adverse Reaction (Intermediate, Verified 03/12/24 10:41) Angioedema adhesive tape Adverse Reaction (Verified 03/12/24 10:41) Rash codeine Adverse Reaction (Verified 03/12/24 10:41) Unknown mirabegron (From Myrbetriq) Adverse Reaction (Verified 03/12/24 10:41) Other tizanidine Adverse Reaction (Verified 03/12/24 10:41) Other vaccine adjuvant system, AS01B liposomal (From Shingrix (PF)) Adverse Reaction (Verified 03/12/24 10:41) Rash varicella-zoster virus glycoprotein E, recombinant (From Shingrix (PF)) Adverse Reaction (Verified 03/12/24 10:41) Rash Medications ???Medication ???Instructions ???Recorded ???Confirmed ???Type gabapentin 100 mg capsule 300 mg PO QHS 01/11/14 03/12/24 History diazepam 5 mg tablet 5 mg PO QHS PRN anxiety 01/13/19 03/12/24 History aspirin 81 mg tablet,delayed 81 mg PO DAILY@0800 02/09/19 03/12/24 History release multivitamin 1 tab PO DAILY 04/08/19 03/12/24 History cholecalciferol (vitamin D3) 125 125 mcg PO DAILY 10/11/19 03/12/24 History mcg (5,000 unit) capsule inhalational spacing device #1 ea 10/11/19 03/12/24 Rx (BreatheRite MDI Spacer) acetaminophen 500 mg capsule 500 mg PO Q6H PRN Pain 05/05/22 03/12/24 History levothyroxine 88 mcg tablet 88 mcg PO DAILY 07/26/22 03/12/24 History ipratropium 0.5 mg-albuterol 3 mg 3 ml inhalation Q4H PRN PRN SOB 10/02/22 03/12/24 Rx (2.5 mg base)/3 mL nebulization /OR WHEEZING #180 mL soln amlodipine 5 mg tablet 2.5 mg PO DAILY 01/31/23 03/12/24 History cranberry fruit concentrate 250 mg 250 mg PO DAILY 01/31/23 03/12/24 History chewable tablet (Azo Cranberry) pantoprazole 40 mg tablet,delayed 40 mg PO BID 90 days #180 tabs 08/15/23 03/12/24 Rx release spironolactone 25 mg tablet 25 mg PO 1700 PRN 08/15/23 03/12/24 History budesonide 0.5 mg/2 mL suspension 0.5 mg (2 mL) inhalation Q12H #120 10/15/23 03/12/24 Rx for nebulization mL hydrocortisone 2.5 % topical cream 1 applic topical QDAY 12/01/23 03/12/24 History with perineal applicator lactulose 20 gram/30 mL oral 20 g (30 mL) PO QHS 90 days #2,700 02/20/24 03/12/24 Rx solution mL benzonatate 100 mg capsule 100 - 200 mg PO TID PRN cough 03/12/24 03/12/24 History Have you fallen in the past year?: No [facility] Medical History Loss of hearing Wears glasses Wears partial dentures Post-menopausal Anxiety Thyroid disease Ambulates with cane Urinary incontinence Difficulty swallowing Gastric reflux Non-smoker History of echocardiogram History of stress test Seasonal allergies Hoarseness Leg cramps History of edema Shortness of breath on exertion Cardiology follow-up encounter History of cataract Ganglion cyst Atherosclerotic heart di (more content not included)... Normal [facility] FORTUNATO SCREENING W TOMOon 03-05 FORTUNATO SCREENING W MITCHELL * * *Final Report* * * DATE OF EXAM: Mar 05 2024 1:29PM WILLARD 0582 - FORTUNATO SCREENING W MITCHELL / PROCEDURE REASON: Encounter for screening mammogram for breast cancer * * * * Physician Interpretation * * * * RESULT: [address] [address] [place] [address] #[id number] - [facility] SCREENING W [place] HISTORY: Patient is 74 years old and is seen for screening and abnormal mammogram in both breasts. Patient states no personal history of breast cancer. Patient states no personal history of other cancers. COMPARISON STUDIES: The present examination has been compared to prior imaging studies dated 04/28/2017 (mammogram), 12/01/2018 (mammogram), 07/21/2020 (mammogram) and 09/13/2022 (mammogram). MAMMOGRAM TECHNIQUE: The study was acquired using full field digital technology and interpreted from soft copy. Digital Breast Tomosynthesis (DBT) images were obtained and used to assist in the interpretation of this examination. Computer-aided detection was utilized by the radiologist in the interpretation of this examination. MAMMOGRAM FINDINGS: The breasts are almost entirely fatty. No suspicious masses, calcifications or other abnormalities are seen in either breast. There are no significant interval changes. IMPRESSION: There is no mammographic evidence of malignancy in either breast. Routine screening mammogram is recommended. Annual mammogram will be due in 1 year. BI-RADS Category 1: Negative RISK: Based on the Tyrer-Cuzick (TC) risk assessment model, this patient has a 1.7% lifetime risk of developing breast cancer, meaning they are at average risk for developing breast cancer. However, this is only an estimate based on available history provided on the patient's questionnaire. We encourage all patients to talk with their providers about these results, further recommendations for managing breast health, and appropriate supplemental screening options if the patient has dense breast tissue. Interpreting Radiologist: Emeterio Aguirre M.D. Electronically signed on: 03/08/2024 Literary Agent: FREDDIE Transcribe Date/Time: Mar 05 2024 1:16P Dictated by: EMETERIO AGUIRRE MD This examination was interpreted and the report reviewed and electronically signed by: EMETERIO AGUIRRE MD on Mar 08 2024 9:09AM EST [id number] Normal [facility] Gastroenterology Visit Repor ton 02-20-2024 Gastroenterology Visit Report [facility] [address] [place] [address] OFFICE VISIT Date of Service: 02/20/24 MR#: [id number] Acct: [id number] Name: KESHIA ROJAS Rep #: [id number] : 1950 Provider: Raul Casper DO Age/Sex: 73/F [place] [facility] [place] Status: Signed with Addenda ADDENDUM by Raul Casper DO on 02/24/24 at 1112 HPI Details: KESHIA ROJAS, is a 73 F who presents to the office today for Assessment Plan (1) Diarrhea: PLAN: She is having with seems to be secretory diarrhea. I think she would benefit from a MR enterography. 02/24/24 1112 Date Raul Casper DO cc: * Signed Intake Vital Signs 07/03/23 15:08 01/14/24 10:44 Height 5 ft 4 in 5 ft 4 in Intake Visit Reasons: 6 M FU Allergies latex Allergy (Unknown, Verified 01/23/24 09:21) PT UNSURE OF REACTION adhesive Allergy (Verified 01/23/24 09:21) Unknown benzocaine (From Cetacaine) Allergy (Verified 01/23/24 09:21) Unknown butamben (From Cetacaine) Allergy (Verified 01/23/24 09:21) Vomiting cortisone (Cortisone) Allergy (Verified 01/23/24 09:21) Unknown dipyridamole (From Aggrenox) Allergy (Verified 01/23/24 09:21) Unknown lansoprazole (From Prevacid) Allergy (Verified 01/23/24 09:21) Unknown meclizine Allergy (Verified 01/23/24 09:21) Unknown methylprednisolone acetate (From Depo-Medrol) Allergy (Verified 01/23/24 09:21) Angioedema metoprolol Allergy (Verified 01/23/24 09:21) Unknown omeprazole (From Prilosec) Allergy (Verified 01/23/24 09:21) Unknown omeprazole magnesium (From Prilosec) Allergy (Verified 01/23/24 09:21) Unknown oxybutynin chloride (From Ditropan) Allergy (Verified 01/23/24 09:21) Unknown povidone-iodine (From Betadine) Allergy (Verified 01/23/24 09:21) Unknown sulfamethoxazole (From Bactrim) Allergy (Verified 01/23/24 09:21) Unknown tegaserod (From Zelnorm) Allergy (Verified 01/23/24 09:21) Hives tegaserod hydrogen maleate (From Zelnorm) Allergy (Verified 01/23/24 09:21) Unknown tetracaine (From Cetacaine) Allergy (Verified 01/23/24 09:21) Unknown tolterodine tartrate (From Detrol) Allergy (Verified 01/23/24 09:21) Unknown trimethoprim (From Bactrim) Allergy (Verified 01/23/24 09:21) Unknown lisinopril Adverse Reaction (Intermediate, Verified 01/23/24 09:21) Angioedema adhesive tape Adverse Reaction (Verified 01/23/24 09:21) Rash codeine Adverse Reaction (Verified 01/23/24 09:21) Unknown mirabegron (From Myrbetriq) Adverse Reaction (Verified 01/23/24 09:21) Other tizanidine Adverse Reaction (Verified 01/23/24 09:21) Other vaccine adjuvant system, AS01B liposomal (From Shingrix (PF)) Adverse Reaction (Verified 01/23/24 09:21) Rash varicella-zoster virus glycoprotein E, recombinant (From Shingrix (PF)) Adverse Reaction (Verified 01/23/24 09:21) Rash Medications ???Medication ???Instructions ???Recorded ???Confirmed ???Type gabapentin 100 mg capsule 300 mg PO QHS 01/11/14 02/20/24 History diazepam 5 mg tablet 5 mg PO QHS PRN anxiety 01/13/19 02/20/24 History aspirin 81 mg tablet,delayed 81 mg PO DAILY@0800 02/09/19 02/20/24 History release multivitamin 1 tab PO DAILY 04/08/19 02/20/24 History cholecalciferol (vitamin D3) 125 125 mcg PO DAILY 10/11/19 02/20/24 History mcg (5,000 unit) capsule inhalational spacing device #1 ea 10/11/19 02/20/24 Rx (BreatheRite MDI Spacer) acetaminophen 500 mg capsule 500 mg PO Q6H PRN Pain 05/05/22 02/20/24 History levothyroxine 88 mcg tablet 88 mcg PO DAILY 07/26/22 02/20/24 History ipratropium 0.5 mg-albuterol 3 mg 3 ml inhalation Q4H PRN PRN SOB 10/02/22 02/20/24 Rx (2.5 mg base)/3 mL nebulization /OR WHEEZING #180 mL soln amlodipine 5 mg tablet 2.5 mg PO DAILY 01/31/23 02/20/24 History cranberry fruit concentrate 250 mg 250 mg PO DAILY 01/31/23 02/20/24 History chewable tablet (Azo Cranberry) pantoprazole 40 mg tablet,delayed 40 mg PO BID 90 days #180 tabs 08/15/23 02/20/24 Rx release spironolactone 25 mg tablet 25 mg PO 1700 PRN 08/15/23 02/20/24 History budesonide 0.5 mg/2 mL suspension 0.5 mg (2 mL) inhalation Q12H #120 10/15/23 02/20/24 Rx for nebulization mL hydrocortisone 2.5 % topical cream 1 applic topical QDAY 12/01/23 02/20/24 History with perineal applicator lactulose 20 gram/30 mL oral 20 g (30 mL) PO QHS 90 days #2,700 02/20/24 02/20/24 Rx solution mL Have you fallen in the past year?: No [facility] Medical History Loss of hearing Wears glasses Wears partial dentures Post-menopausal Anxiety Thyroid disease Ambulates with cane Urinary incontinence Difficulty swallowing Gastric reflux Non-smoker History of echocardiogram History of stress test Seasonal allergies Hoarsenes (more content not included)... Normal [facility] Orthopedic Visit Reporton Orthopedic Visit Report [facility] [facility] [address] [place] [address] OFFICE VISIT Date of Service: 01/30/24 MR#: [id number] Acct: [id number] Name: KESHIA ROJAS Rep #: [id number] 4 : 1950 Provider: Dr. Callum Woodall so, DO Age/Sex: 73/F [place] [facility] [place] Status: Signed Intake Vital Signs 11/18/23 18:05 01/14/24 10:44 Height 5 ft 4 in 5 ft 4 in Intake Visit Reasons: LEFT KNEE Allergies latex Allergy (Unknown, Verified 01/23/24 09:21) PT UNSURE OF REACTION adhesive Allergy (Verified 01/23/24 09:21) Unknown benzocaine (From Cetacaine) Allergy (Verified 01/23/24 09:21) Unknown butamben (From Cetacaine) Allergy (Verified 01/23/24 09:21) Vomiting cortisone (Cortisone) Allergy (Verified 01/23/24 09:21) Unknown dipyridamole (From Aggrenox) Allergy (Verified 01/23/24 09:21) Unknown lansoprazole (From Prevacid) Allergy (Verified 01/23/24 09:21) Unknown meclizine Allergy (Verified 01/23/24 09:21) Unknown methylprednisolone acetate (From Depo-Medrol) Allergy (Verified 01/23/24 09:21) Angioedema metoprolol Allergy (Verified 01/23/24 09:21) Unknown omeprazole (From Prilosec) Allergy (Verified 01/23/24 09:21) Unknown omeprazole magnesium (From Prilosec) Allergy (Verified 01/23/24 09:21) Unknown oxybutynin chloride (From Ditropan) Allergy (Verified 01/23/24 09:21) Unknown povidone-iodine (From Betadine) Allergy (Verified 01/23/24 09:21) Unknown sulfamethoxazole (From Bactrim) Allergy (Verified 01/23/24 09:21) Unknown tegaserod (From Zelnorm) Allergy (Verified 01/23/24 09:21) Hives tegaserod hydrogen maleate (From Zelnorm) Allergy (Verified 01/23/24 09:21) Unknown tetracaine (From Cetacaine) Allergy (Verified 01/23/24 09:21) Unknown tolterodine tartrate (From Detrol) Allergy (Verified 01/23/24 09:21) Unknown trimethoprim (From Bactrim) Allergy (Verified 01/23/24 09:21) Unknown lisinopril Adverse Reaction (Intermediate, Verified 01/23/24 09:21) Angioedema adhesive tape Adverse Reaction (Verified 01/23/24 09:21) Rash codeine Adverse Reaction (Verified 01/23/24 09:21) Unknown mirabegron (From Myrbetriq) Adverse Reaction (Verified 01/23/24 09:21) Other tizanidine Adverse Reaction (Verified 01/23/24 09:21) Other vaccine adjuvant system, AS01B liposomal (From Shingrix (PF)) Adverse Reaction (Verified 01/23/24 09:21) Rash varicella-zoster virus glycoprotein E, recombinant (From Shingrix (PF)) Adverse Reaction (Verified 01/23/24 09:21) Rash Have you fallen in the past year?: No PFSH Medical History Loss of hearing Wears glasses Wears partial dentures Post-menopausal Anxiety Thyroid disease Ambulates with cane Urinary incontinence Difficulty swallowing Gastric reflux Non-smoker History of echocardiogram History of stress test Seasonal allergies Hoarseness Leg cramps History of edema Shortness of breath on exertion Cardiology follow-up encounter History of cataract Ganglion cyst Atherosclerotic heart disease of [place] coronary artery without angina pectoris Cholelithiasis with chronic cholecystitis Cholecystitis Pancreatitis, gallstone Gallstones Pancreatitis Dysmetabolic syndrome X DVT (deep venous thrombosis) Barretts esophagus Hypothyroidism Fibromyalgia History of DVT (deep vein thrombosis) Essential hypertension Segmental and somatic dysfunction of pelvic region Segmental and somatic dysfunction of lumbar region Segmental and somatic dysfunction of thoracic region DDD (degenerative disc disease), lumbar History of atrial dilatation PAD (peripheral artery disease) TIA (transient ischemic attack) Osteoarthritis GERD (gastroesophageal reflux disease) IBS (irritable bowel syndrome) Cataracts, bilateral Arthritis Anemia Environmental allergies Surgical History History of back surgery History of cholecystectomy Hx of dilation and curettage Hx of cardiac cath History of Robbie fundoplication S/P gastroplasty History of laparotomy Hx of tubal ligation hx of filter removal Hx of superior vena cava filter placement Hx of local excision of skin lesion History of esophagogastroduodenoscop y (EGD) Hx of colonoscopy H/O hernia repair History of tonsillectomy Family History Mother Cancer Celiac disease Presence of permanent cardiac pacemaker Father Cancer Sister Hypertension Other Colon cancer Myocardial infarction Social History Smoking Status: Never smoker alcohol intake: never substance use type: does not use caffeine: Yes Type: coffee Number of servings: 2 what type of physical activity do you participate in: walking frequenc (more content not included)... Normal [facility] CNOVon 01-23-2024 CNOV Office Visit (INTMWS ) ----- KESHIA ROJAS ([id number]) 1950 F Date Time Provider Department 01/23/24 1:20 PM NORMAN GARCIA INTMWS During your visit today, we recorded the following information about you: Temperature Pulse Blood pressure Weight 97 degrees 80/minute 128/78 90.4 kg Norman Garcia APRN.[facility] 01/23/2024 1:50 PM Signed SUBJECTIVE Keshia Rojas is a 73 year old female here today for a check up on her medical problems. Chief Complaint Patient presents with: Recheck Cough: for about 1 week. Moist productive HPI Keshia Rojas is a 73 year old female. She is an established patient of Paulo Scott MD. Here today for a 4 month follow up. Concerned about weight. Not sure what to do to help promote weight loss. Has not been on metformin for sugars before. Issues with a persistent cough the last week or so. Moist cough. Some wheezing at times. No issues with chest pain, chest tightness or shortness of breath. Compliant with medications. Her medications were reviewed today and her list is now up to date. Medications Current Outpatient Medications Medication Sig gabapentin (NEURONTIN) 100 mg capsule Take 3 capsules by mouth daily at bedtime for 180 days. diazePAM (VALIUM) 5 mg tablet Take 1 tablet by mouth at bedtime as needed (vertigo or anxiety) for up to 180 days. Do not start before September 24, 2023. levothyroxine (SYNTHROID) 88 mcg tablet Take 1 tablet by mouth once daily. Take on empty stomach. For Thyroid amLODIPine (NORVASC) 5 mg tablet Take 1 tablet by mouth once daily. diclofenac (VOLTAREN) 1 % topical gel Apply 2 g to affected area four times daily. cyclobenzaprine (FLEXERIL) 5 mg tablet Take 1 tablet by mouth three times a day as needed for muscle spasm. lidocaine (LIDODERM) 5 % Apply 1 Patch as directed once daily. Remove old patch after wearing for 12 hours and then 12 hours later apply new patch for 12 hours on the site and 12 hours off the site. Location: right lower back. ipratropium-albuterol (DUONEB) 0.5 mg-3 mg(2.5 mg base)/3 mL nebu Inhale 3 mL as instructed every 6 hours. Unit dose pack. dr Park pulmonology. spironolactone (ALDACTONE) 25 mg tablet Take 1 tablet by mouth once daily. (Patient taking differently: Take 25 mg by mouth once daily as needed. When edema worse) aspirin, enteric coated (ASPIRIN, ENTERIC COATED) 81 mg EC tablet Take 81 mg by mouth. budesonide (PULMICORT) 0.5 mg/2 mL nebulizer solution Use 0.5 mg via nebulizer once daily. cranberry fruit concentrate (AZO CRANBERRY) 250 mg chew Take by mouth. cholecalciferol, vitamin D3, 10 mcg (400 unit) cap Take 400 Units by mouth once daily. acetaminophen (TYLENOL) 325 mg tablet Take 650 mg by mouth every 6 hours as needed. Tylenol arthritis multivitamin ORAL tablet Take 1 tablet by mouth twice daily. benzonatate (TESSALON PERLE) 100 mg capsule Take 1-2 capsules by mouth three times a day as needed for cough. Artificial Tear, Hypromellose, (SYSTANE GEL) 0.3 % gel 1 Drop daily at bedtime. (Patient not taking: Reported on 09/17/2023) COMPOUNDED PRESCRIPTION SEMI ELECTRIC HOSPITAL BED AND [...] medications for this visit. ALLERGIES Allergen Reactions Adhesive Rash ECG patch [...] mandibular pain, lymphadenopathy, possible angio edema per [facility] ER note 04/24/2022 Meclizine Swelling URINARY RETENTION,FACE FELT FUNNY Metoprolol GI Upset headache.itching.hives. Myrbetriq [Mirabegr* Other: See Comments elevated BP Prevacid [Lansopraz* GI Upset GAS,BURPING HEADACHE Prilosec [Omeprazol* Diarrhea Tape [Adhesive Tape* Rash Paper tape Tizanidine Other: See Comments increased pain Zelnorm [Tegaserod * Hives ACTIVE PROBLEM LIST 1) Laparotomy 2) Joann gastroplasty 3) Wedge the ga (more content not included)... Normal [facility] COVID AND INFLUENZA A/B AND RSV PCR, ROUTINEon 01-23-2024 SARS-CoV-2 (COVID-19) RNA ELIN+probe Ql (Unsp spec) SARS-COV-2 (AGENT OF COVID-19) RNA: Not detected INFLUENZA A RNA: Not detected INFLUENZA B RNA: Not detected RESPIRATORY SYNCYTIAL VIRUS (RSV) RNA: Not detected Normal [facility] Comment on above: Performed By: #### C VFLRS ####[facility] LABCLIA [id number] [address] [address] [place] Orthopedic Visit Reporton Orthopedic Visit Report [facility] [address] [place] [address] [address] [place] [address] OFFICE VISIT Date of Service: 01/23/24 MR#: [id number] Acct: [id number] Name: KESHIA ROJAS Rep #: [id number] 2 : 1950 Provider: Dr. Callum molina, DO Age/Sex: 73/F [place] [facility] [place] Status: Signed Intake Vital Signs 11/18/23 18:05 01/14/24 10:44 Height 5 ft 4 in 5 ft 4 in Intake Visit Reasons: LEFT KNEE Chief Complaint: 2nd Left knee Euflexxa Is patient in pain?: Yes (Left knee) Pain scale (1-10): 5 Allergies latex Allergy (Unknown, Verified 01/23/24 09:21) PT UNSURE OF REACTION adhesive Allergy (Verified 01/23/24 09:21) Unknown benzocaine (From Cetacaine) Allergy (Verified 01/23/24 09:21) Unknown butamben (From Cetacaine) Allergy (Verified 01/23/24 09:21) Vomiting cortisone (Cortisone) Allergy (Verified 01/23/24 09:21) Unknown dipyridamole (From Aggrenox) Allergy (Verified 01/23/24 09:21) Unknown lansoprazole (From Prevacid) Allergy (Verified 01/23/24 09:21) Unknown meclizine Allergy (Verified 01/23/24 09:21) Unknown methylprednisolone acetate (From Depo-Medrol) Allergy (Verified 01/23/24 09:21) Angioedema metoprolol Allergy (Verified 01/23/24 09:21) Unknown omeprazole (From Prilosec) Allergy (Verified 01/23/24 09:21) Unknown omeprazole magnesium (From Prilosec) Allergy (Verified 01/23/24 09:21) Unknown oxybutynin chloride (From Ditropan) Allergy (Verified 01/23/24 09:21) Unknown povidone-iodine (From Betadine) Allergy (Verified 01/23/24 09:21) Unknown sulfamethoxazole (From Bactrim) Allergy (Verified 01/23/24 09:21) Unknown tegaserod (From Zelnorm) Allergy (Verified 01/23/24 09:21) Hives tegaserod hydrogen maleate (From Zelnorm) Allergy (Verified 01/23/24 09:21) Unknown tetracaine (From Cetacaine) Allergy (Verified 01/23/24 09:21) Unknown tolterodine tartrate (From Detrol) Allergy (Verified 01/23/24 09:21) Unknown trimethoprim (From Bactrim) Allergy (Verified 01/23/24 09:21) Unknown lisinopril Adverse Reaction (Intermediate, Verified 01/23/24 09:21) Angioedema adhesive tape Adverse Reaction (Verified 01/23/24 09:21) Rash codeine Adverse Reaction (Verified 01/23/24 09:21) Unknown mirabegron (From Myrbetriq) Adverse Reaction (Verified 01/23/24 09:21) Other tizanidine Adverse Reaction (Verified 01/23/24 09:21) Other vaccine adjuvant system, AS01B liposomal (From Shingrix (PF)) Adverse Reaction (Verified 01/23/24 09:21) Rash varicella-zoster virus glycoprotein E, recombinant (From Shingrix (PF)) Adverse Reaction (Verified 01/23/24 09:21) Rash Medications ???Medication ???Instructions ???Recorded ???Confirmed ???Type gabapentin 100 mg capsule 300 mg PO QHS 01/11/14 01/23/24 History diazepam 5 mg tablet 5 mg PO QHS PRN anxiety 01/13/19 01/23/24 History aspirin 81 mg tablet,delayed 81 mg PO DAILY@0800 02/09/19 01/23/24 History release multivitamin 1 tab PO DAILY 04/08/19 01/23/24 History cholecalciferol (vitamin D3) 125 125 mcg PO DAILY 10/11/19 01/23/24 History mcg (5,000 unit) capsule inhalational spacing device #1 ea 10/11/19 01/16/24 Rx (BreatheRite MDI Spacer) acetaminophen 500 mg capsule 500 mg PO Q6H PRN Pain 05/05/22 01/23/24 History levothyroxine 88 mcg tablet 88 mcg PO DAILY 07/26/22 01/23/24 History ipratropium 0.5 mg-albuterol 3 mg 3 ml inhalation Q4H PRN PRN SOB 10/02/22 01/23/24 Rx (2.5 mg base)/3 mL nebulization /OR WHEEZING #180 mL soln amlodipine 5 mg tablet 2.5 mg PO DAILY 01/31/23 01/23/24 History cranberry fruit concentrate 250 mg 250 mg PO DAILY 01/31/23 01/23/24 History chewable tablet (Azo Cranberry) lactulose 20 gram/30 mL oral 20 g (30 mL) PO QHS 90 days #2,700 08/15/23 01/23/24 Rx solution mL pantoprazole 40 mg tablet,delayed 40 mg PO BID 90 days #180 tabs 08/15/23 01/23/24 Rx release spironolactone 25 mg tablet 25 mg PO 1700 PRN 08/15/23 01/23/24 History budesonide 0.5 mg/2 mL suspension 0.5 mg (2 mL) inhalation Q12H #120 10/15/23 01/23/24 Rx for nebulization mL hydrocortisone 2.5 % topical cream 1 applic topical QDAY 12/01/23 01/23/24 History with perineal applicator Have you fallen in the past year?: No (Did not ask) PFSH Medical History Loss of hearing Wears glasses Wears partial dentures Post-menopausal Anxiety Thyroid disease Ambulates with cane Urinary incontinence Difficulty swallowing Gastric reflux Non-smoker History of echocardiogram History of stress test Seasonal allergies Hoarseness Leg cramps History of edema Shortness of breath on exertion Cardiology follow-up encounter History of cataract Ganglion cyst Atherosclerotic heart disease of [place] coronary artery without angina pectoris Cholelithiasis with chronic cholecys (more content not included)... Normal [facility] Orthopedic Visit Reporton Orthopedic Visit Report [facility] [address] [place] [address] OFFICE VISIT Date of Service: 01/16/24 MR#: [id number] Acct: [id number] Name: KESHIA ROJAS Rep #: [id number] 1 : 1950 Provider: Dr. Callum molina DO Age/Sex: 73/F [place] [facility] [place] Status: Signed Intake Vital Signs 11/18/23 18:05 01/14/24 10:44 Height 5 ft 4 in 5 ft 4 in BP 140/82 H Respiration 18 Pulse 81 Temp 98.2 F Temp Source Temporal Pulse Oximetry (%) 97 Intake Visit Reasons: LEFT KNEE Allergies latex Allergy (Unknown, Verified 01/16/24 09:15) PT UNSURE OF REACTION adhesive Allergy (Verified 01/16/24 09:15) Unknown benzocaine (From Cetacaine) Allergy (Verified 01/16/24 09:15) Unknown butamben (From Cetacaine) Allergy (Verified 01/16/24 09:15) Vomiting cortisone (Cortisone) Allergy (Verified 01/16/24 09:15) Unknown dipyridamole (From Aggrenox) Allergy (Verified 01/16/24 09:15) Unknown lansoprazole (From Prevacid) Allergy (Verified 01/16/24 09:15) Unknown meclizine Allergy (Verified 01/16/24 09:15) Unknown methylprednisolone acetate (From Depo-Medrol) Allergy (Verified 01/16/24 09:15) Angioedema metoprolol Allergy (Verified 01/16/24 09:15) Unknown omeprazole (From Prilosec) Allergy (Verified 01/16/24 09:15) Unknown omeprazole magnesium (From Prilosec) Allergy (Verified 01/16/24 09:15) Unknown oxybutynin chloride (From Ditropan) Allergy (Verified 01/16/24 09:15) Unknown povidone-iodine (From Betadine) Allergy (Verified 01/16/24 09:15) Unknown sulfamethoxazole (From Bactrim) Allergy (Verified 01/16/24 09:15) Unknown tegaserod (From Zelnorm) Allergy (Verified 01/16/24 09:15) Hives tegaserod hydrogen maleate (From Zelnorm) Allergy (Verified 01/16/24 09:15) Unknown tetracaine (From Cetacaine) Allergy (Verified 01/16/24 09:15) Unknown tolterodine tartrate (From Detrol) Allergy (Verified 01/16/24 09:15) Unknown trimethoprim (From Bactrim) Allergy (Verified 01/16/24 09:15) Unknown lisinopril Adverse Reaction (Intermediate, Verified 01/16/24 09:15) Angioedema adhesive tape Adverse Reaction (Verified 01/16/24 09:15) Rash codeine Adverse Reaction (Verified 01/16/24 09:15) Unknown mirabegron (From Myrbetriq) Adverse Reaction (Verified 01/16/24 09:15) Other tizanidine Adverse Reaction (Verified 01/16/24 09:15) Other vaccine adjuvant system, AS01B liposomal (From Shingrix (PF)) Adverse Reaction (Verified 01/16/24 09:15) Rash varicella-zoster virus glycoprotein E, recombinant (From Shingrix (PF)) Adverse Reaction (Verified 01/16/24 09:15) Rash Medications ???Medication ???Instructions ???Recorded ???Confirmed ???Type gabapentin 100 mg capsule 300 mg PO QHS 01/11/14 01/16/24 History diazepam 5 mg tablet 5 mg PO QHS PRN anxiety 01/13/19 01/16/24 History aspirin 81 mg tablet,delayed 81 mg PO DAILY@0800 02/09/19 01/16/24 History release multivitamin 1 tab PO DAILY 04/08/19 01/16/24 History cholecalciferol (vitamin D3) 125 125 mcg PO DAILY 10/11/19 01/16/24 History mcg (5,000 unit) capsule inhalational spacing device #1 ea 10/11/19 01/16/24 Rx (BreatheRite MDI Spacer) acetaminophen 500 mg capsule 500 mg PO Q6H PRN Pain 05/05/22 01/16/24 History levothyroxine 88 mcg tablet 88 mcg PO DAILY 07/26/22 01/16/24 History ipratropium 0.5 mg-albuterol 3 mg 3 ml inhalation Q4H PRN PRN SOB 10/02/22 01/16/24 Rx (2.5 mg base)/3 mL nebulization /OR WHEEZING #180 mL soln amlodipine 5 mg tablet 2.5 mg PO DAILY 01/31/23 01/16/24 History cranberry fruit concentrate 250 mg 250 mg PO DAILY 01/31/23 01/16/24 History chewable tablet (Azo Cranberry) lactulose 20 gram/30 mL oral 20 g (30 mL) PO QHS 90 days #2,700 08/15/23 01/16/24 Rx solution mL pantoprazole 40 mg tablet,delayed 40 mg PO BID 90 days #180 tabs 08/15/23 01/16/24 Rx release spironolactone 25 mg tablet 25 mg PO 1700 PRN 08/15/23 01/16/24 History budesonide 0.5 mg/2 mL suspension 0.5 mg (2 mL) inhalation Q12H #120 10/15/23 01/16/24 Rx for nebulization mL celecoxib 100 mg capsule (Celebrex) 100 mg PO BID #30 caps 12/01/23 01/16/24 Rx hydrocortisone 2.5 % topical cream 1 applic topical QDAY 12/01/23 01/16/24 History with perineal applicator Have you fallen in the past year?: No PFSH Medical History Loss of hearing Wears glasses Wears partial dentures Post-menopausal Anxiety Thyroid disease Ambulates with cane Urinary incontinence Difficulty swallowing Gastric reflux Non-smoker History of echocardiogram History of stress test Seasonal allergies Hoarseness Leg cramps History of edema Shortness of breath on exertion Cardiology follow-up encounter History of cataract Ganglion cyst Atherosclerotic heart disease o (more content not included)... Normal [facility] Orthopedic Visit Reporton Orthopedic Visit Report [facility] [address] [place] [address] [place] [address] OFFICE VISIT Date of Service: 12/26/23 MR#: [id number] Acct: [id number] Name: KESHIA ROJAS Rep #: [id number] 3 : 1950 Provider: Dr. Callum Woodall so, DO Age/Sex: 73/F [place] [facility] [place] Status: Signed Intake Vital Signs 11/18/23 18:05 Height 5 ft 4 in BP 140/82 H Respiration 18 Pulse 81 Temp 98.2 F Temp Source Temporal Pulse Oximetry (%) 97 Intake Visit Reasons: LEFT KNEE Allergies latex Allergy (Unknown, Verified 12/26/23 10:00) PT UNSURE OF REACTION adhesive Allergy (Verified 12/26/23 10:00) Unknown benzocaine (From Cetacaine) Allergy (Verified 12/26/23 10:00) Unknown butamben (From Cetacaine) Allergy (Verified 12/26/23 10:00) Vomiting cortisone (Cortisone) Allergy (Verified 12/26/23 10:00) Unknown dipyridamole (From Aggrenox) Allergy (Verified 12/26/23 10:00) Unknown lansoprazole (From Prevacid) Allergy (Verified 12/26/23 10:00) Unknown meclizine Allergy (Verified 12/26/23 10:00) Unknown methylprednisolone acetate (From Depo-Medrol) Allergy (Verified 12/26/23 10:00) Angioedema metoprolol Allergy (Verified 12/26/23 10:00) Unknown omeprazole (From Prilosec) Allergy (Verified 12/26/23 10:00) Unknown omeprazole magnesium (From Prilosec) Allergy (Verified 12/26/23 10:00) Unknown oxybutynin chloride (From Ditropan) Allergy (Verified 12/26/23 10:00) Unknown povidone-iodine (From Betadine) Allergy (Verified 12/26/23 10:00) Unknown sulfamethoxazole (From Bactrim) Allergy (Verified 12/26/23 10:00) Unknown tegaserod (From Zelnorm) Allergy (Verified 12/26/23 10:00) Hives tegaserod hydrogen maleate (From Zelnorm) Allergy (Verified 12/26/23 10:00) Unknown tetracaine (From Cetacaine) Allergy (Verified 12/26/23 10:00) Unknown tolterodine tartrate (From Detrol) Allergy (Verified 12/26/23 10:00) Unknown trimethoprim (From Bactrim) Allergy (Verified 12/26/23 10:00) Unknown lisinopril Adverse Reaction (Intermediate, Verified 12/26/23 10:00) Angioedema adhesive tape Adverse Reaction (Verified 12/26/23 10:00) Rash codeine Adverse Reaction (Verified 12/26/23 10:00) Unknown mirabegron (From Myrbetriq) Adverse Reaction (Verified 12/26/23 10:00) Other tizanidine Adverse Reaction (Verified 12/26/23 10:00) Other vaccine adjuvant system, AS01B liposomal (From Shingrix (PF)) Adverse Reaction (Verified 12/26/23 10:00) Rash varicella-zoster virus glycoprotein E, recombinant (From Shingrix (PF)) Adverse Reaction (Verified 12/26/23 10:00) Rash Medications ???Medication ???Instructions ???Recorded ???Confirmed ???Type gabapentin 100 mg capsule 300 mg PO QHS 01/11/14 12/26/23 History diazepam 5 mg tablet 5 mg PO QHS PRN anxiety 01/13/19 12/26/23 History aspirin 81 mg tablet,delayed 81 mg PO DAILY@0800 02/09/19 12/26/23 History release multivitamin 1 tab PO DAILY 04/08/19 12/26/23 History cholecalciferol (vitamin D3) 125 125 mcg PO DAILY 10/11/19 12/26/23 History mcg (5,000 unit) capsule inhalational spacing device #1 ea 10/11/19 12/26/23 Rx (BreatheRite MDI Spacer) acetaminophen 500 mg capsule 500 mg PO Q6H PRN Pain 05/05/22 12/26/23 History levothyroxine 88 mcg tablet 88 mcg PO DAILY 07/26/22 12/26/23 History ipratropium 0.5 mg-albuterol 3 mg 3 ml inhalation Q4H PRN PRN SOB 10/02/22 12/26/23 Rx (2.5 mg base)/3 mL nebulization /OR WHEEZING #180 mL soln amlodipine 5 mg tablet 2.5 mg PO DAILY 01/31/23 12/26/23 History cranberry fruit concentrate 250 mg 250 mg PO DAILY 01/31/23 12/26/23 History chewable tablet (Azo Cranberry) lactulose 20 gram/30 mL oral 20 g (30 mL) PO QHS 90 days #2,700 08/15/23 12/26/23 Rx solution mL pantoprazole 40 mg tablet,delayed 40 mg PO BID 90 days #180 tabs 08/15/23 12/26/23 Rx release spironolactone 25 mg tablet 25 mg PO 1700 PRN 08/15/23 12/26/23 History budesonide 0.5 mg/2 mL suspension 0.5 mg (2 mL) inhalation Q12H #120 10/15/23 12/26/23 Rx for nebulization mL celecoxib 100 mg capsule (Celebrex) 100 mg PO BID #30 caps 12/01/23 12/26/23 Rx hydrocortisone 2.5 % topical cream 1 applic topical QDAY 12/01/23 12/26/23 History with perineal applicator Have you fallen in the past year?: Yes PFSH Medical History Loss of hearing Wears glasses Wears partial dentures Post-menopausal Anxiety Thyroid disease Ambulates with cane Urinary incontinence Difficulty swallowing Gastric reflux Non-smoker History of echocardiogram History of stress test Seasonal allergies Hoarseness Leg cramps History of edema Shortness of breath on exertion Cardiology follow-up encounter History of cataract Ganglion cyst Atherosclerotic heart disease of [place] coronary artery with (more content not included)... Normal [facility] Orthopedic Visit Reporton Orthopedic Visit Report [facility] [address] [place] [address] OFFICE VISIT Date of Service: 12/01/23 MR#: [id number] Acct: [id number] Name: KESHIA ROJAS Rep #: [id number] : 1950 Provider: Dr. Callum Woodall so, DO Age/Sex: 73/F [place] [facility] [place] Status: Signed Intake Vital Signs 11/18/23 18:05 Height 5 ft 4 in Intake Visit Reasons: LEFT KNEE Accompanied by: Self Allergies latex Allergy (Unknown, Verified 12/01/23 08:41) PT UNSURE OF REACTION adhesive Allergy (Verified 12/01/23 08:41) Unknown benzocaine (From Cetacaine) Allergy (Verified 12/01/23 08:41) Unknown butamben (From Cetacaine) Allergy (Verified 12/01/23 08:41) Vomiting cortisone (Cortisone) Allergy (Verified 12/01/23 08:41) Unknown dipyridamole (From Aggrenox) Allergy (Verified 12/01/23 08:41) Unknown lansoprazole (From Prevacid) Allergy (Verified 12/01/23 08:41) Unknown meclizine Allergy (Verified 12/01/23 08:41) Unknown methylprednisolone acetate (From Depo-Medrol) Allergy (Verified 12/01/23 08:41) Angioedema metoprolol Allergy (Verified 12/01/23 08:41) Unknown omeprazole (From Prilosec) Allergy (Verified 12/01/23 08:41) Unknown omeprazole magnesium (From Prilosec) Allergy (Verified 12/01/23 08:41) Unknown oxybutynin chloride (From Ditropan) Allergy (Verified 12/01/23 08:41) Unknown povidone-iodine (From Betadine) Allergy (Verified 12/01/23 08:41) Unknown sulfamethoxazole (From Bactrim) Allergy (Verified 12/01/23 08:41) Unknown tegaserod (From Zelnorm) Allergy (Verified 12/01/23 08:41) Hives tegaserod hydrogen maleate (From Zelnorm) Allergy (Verified 12/01/23 08:41) Unknown tetracaine (From Cetacaine) Allergy (Verified 12/01/23 08:41) Unknown tolterodine tartrate (From Detrol) Allergy (Verified 12/01/23 08:41) Unknown trimethoprim (From Bactrim) Allergy (Verified 12/01/23 08:41) Unknown lisinopril Adverse Reaction (Intermediate, Verified 12/01/23 08:41) Angioedema adhesive tape Adverse Reaction (Verified 12/01/23 08:41) Rash codeine Adverse Reaction (Verified 12/01/23 08:41) Unknown mirabegron (From Myrbetriq) Adverse Reaction (Verified 12/01/23 08:41) Other tizanidine Adverse Reaction (Verified 12/01/23 08:41) Other vaccine adjuvant system, AS01B liposomal (From Shingrix (PF)) Adverse Reaction (Verified 12/01/23 08:41) Rash varicella-zoster virus glycoprotein E, recombinant (From Shingrix (PF)) Adverse Reaction (Verified 12/01/23 08:41) Rash Medications ???Medication ???Instructions ???Recorded ???Confirmed ???Type gabapentin 100 mg capsule 300 mg PO QHS 01/11/14 12/01/23 History diazepam 5 mg tablet 5 mg PO QHS PRN anxiety 01/13/19 12/01/23 History aspirin 81 mg tablet,delayed 81 mg PO DAILY@0800 02/09/19 12/01/23 History release multivitamin 1 tab PO DAILY 04/08/19 12/01/23 History cholecalciferol (vitamin D3) 125 125 mcg PO DAILY 10/11/19 12/01/23 History mcg (5,000 unit) capsule inhalational spacing device #1 ea 10/11/19 12/01/23 Rx (BreatheRite MDI Spacer) acetaminophen 500 mg capsule 500 mg PO Q6H PRN Pain 05/05/22 12/01/23 History levothyroxine 88 mcg tablet 88 mcg PO DAILY 07/26/22 12/01/23 History ipratropium 0.5 mg-albuterol 3 mg 3 ml inhalation Q4H PRN PRN SOB 10/02/22 12/01/23 Rx (2.5 mg base)/3 mL nebulization /OR WHEEZING #180 mL soln amlodipine 5 mg tablet 2.5 mg PO DAILY 01/31/23 12/01/23 History cranberry fruit concentrate 250 mg 250 mg PO DAILY 01/31/23 12/01/23 History chewable tablet (Azo Cranberry) lactulose 20 gram/30 mL oral 20 g (30 mL) PO QHS 90 days #2,700 08/15/23 12/01/23 Rx solution mL pantoprazole 40 mg tablet,delayed 40 mg PO BID 90 days #180 tabs 08/15/23 12/01/23 Rx release spironolactone 25 mg tablet 25 mg PO 1700 PRN 08/15/23 12/01/23 History budesonide 0.5 mg/2 mL suspension 0.5 mg (2 mL) inhalation Q12H #120 10/15/23 12/01/23 Rx for nebulization mL celecoxib 100 mg capsule (Celebrex) 100 mg PO BID #30 caps 12/01/23 12/01/23 Rx hydrocortisone 2.5 % topical cream 1 applic topical QDAY 12/01/23 12/01/23 History with perineal applicator Have you fallen in the past year?: [facility] Loss of hearing Wears glasses Wears partial dentures Post-menopausal Anxiety Thyroid disease Ambulates with cane Urinary incontinence Difficulty swallowing Gastric reflux Non-smoker History of echocardiogram History of stress test Seasonal allergies Hoarseness Leg cramps History of edema Shortness of breath on exertion Cardiology follow-up encounter History of cataract Ganglion cyst Atherosclerotic heart disease of [place] coronary artery without angina pectoris Cholelithiasis with chronic cholecystitis Cholecystitis Pancreatit (more content not included)... Normal [facility] 25(OH)D3 [facility] 2023 25-hydroxyvitamin D3 [Mass/Vol] 74.7 ng/mL Normal 31.0-80.0 [facility] Comment on above: Order Comment: Speci men Type: BLOOD SPECIMENOrdering Facility: [facility] Address: [address] [place] [address] Result Comment: Clas sification of 25 [place] Vitamin D status: Deficiency/Insufficiency: < or = 30 ng/ml. Sufficiency/Optimal Levels: 31-80 ng/mL Toxicity: > 100 ng/mL. Test performed by chemiluminescent immunoassay. Performed By: #### 1 989-3 ####[facility] LABCLIA [id number] [place] [address] [place] [facility] metabolic [address] [place] [address] 11-28-2023 Albumin [Mass/Vol] 3.9 g/dL Normal 3.9-4.9 [facility] Comment on above: Order Comment: Speci men Type: BLOOD SPECIMENOrdering Facility: [facility] Address: [address] [place] [address] Performed By: #### 2 4323-8, 18012-0 ####[facility] LABCLIA [id number] [place] [address] [place] ALP [Catalytic activity/Vol] 64 U/L Normal 34-123 [facility] Comment on above: Order Comment: Speci men Type: BLOOD SPECIMENOrdering Facility: [facility] Address: [address] [place] [address] Performed By: #### 2 4323-8, 53708-5 ####[facility] LABCLIA [id number] [place] [id number] [place] ALT [Catalytic activity/Vol] 30 U/L Normal 7-38 [facility] Comment on above: Order Comment: Speci men Type: BLOOD SPECIMENOrdering Facility: [facility] Address: [address] [place] [address] Performed By: #### 2 4323-8, 11565-0 ####[facility] LABCLIA [id number] [place] [address] [place] Anion gap [Moles/Vol] 9 mmol/L Normal 8-15 [facility] Comment on above: Order Comment: Speci men Type: BLOOD SPECIMENOrdering Facility: [facility] Address: [address] [place] [address] Performed By: #### 2 4323-8, 52118-2 ####[facility] LABCLIA [id number] [place] [address] [place] AST [Catalytic activity/Vol] 23 U/L Normal 13-35 [facility] Comment on above: Order Comment: Speci men Type: BLOOD SPECIMENOrdering Facility: [facility] Address: [address] [place] [address] Performed By: #### 2 4323-8, 62080-9 ####[facility] LABCLIA [id number] [place] [address] [place] Bilirubin [Mass/Vol] 0.5 mg/dL Normal 0.2-1.3 [facility] Comment on above: Order Comment: Speci men Type: BLOOD SPECIMENOrdering Facility: [facility] Address: [address] [place] [address] Performed By: #### 2 4323-8, 96592-3 ####[facility] LABCLIA [id number] [place] [address] [place] Calcium [Mass/Vol] 9.6 mg/dL Normal 8.5-10.2 [facility] Comment on above: Order Comment: Speci men Type: BLOOD SPECIMENOrdering Facility: [facility] Address: [address] [place] [address] Performed By: #### 2 4323-8, 69413-9 ####[facility] LABCLIA [id number] [place] [address] [place] Chloride [Moles/Vol] 104 mmol/L Normal 98-107 [facility] Comment on above: Order Comment: Speci men Type: BLOOD SPECIMENOrdering Facility: [facility] Address: [address] [place] [address] Performed By: #### 2 4323-8, 32443-6 ####[facility] LABCLIA [id number] [place] [address] [place] CO2 [Moles/Vol] 27 mmol/L Normal 22-30 [facility] Comment on above: Order Comment: Speci men Type: BLOOD SPECIMENOrdering Facility: [facility] Address: [address] [place] [address] Performed By: #### 2 4323-8, 00655-6 ####[facility] LABIA [id number] [place] [address] [place] Creatinine [Mass/Vol] 0.72 mg/dL Normal 0.58-0.96 [facility] Comment on above: Order Comment: Speci men Type: BLOOD SPECIMENOrdering Facility: [facility] Address: [address] [place] [address] Performed By: #### 2 4323-8, 45460-2 ####[facility] LABIA [id number] [address] [place] Creatinine and Glomerular filtration rate.predicted panel (S/P/Bld) 88 mL/min/1.73m??? Normal >=60 [facility] Comment on above: Order Comment: Speci men Type: BLOOD SPECIMENOrdering Facility: [facility] Address: [address] [place] [address] Result Comment: [place] mated Glomerular Filtration Rate (eGFR) is calculated using the 2020 CKD-EPI creatinine equation. This equation utilizes serum creatinine, sex, and age as parameters. The creatinine assay has traceable calibration to isotope dilution-mass spectrometry. Refer to KDIGO guidelines for clinical interpretation. In patients with unstable renal function, e.g. those with acute kidney injury, the eGFR may not accurately reflect actual GFR. Performed By: #### 2 4323-8, 32417-8 ####[facility] LABCLIA [id number] [place] [address] [place] Glucose [Mass/Vol] 126 mg/dL High 74-99 [facility] Comment on above: Order Comment: Speci men Type: BLOOD SPECIMENOrdering Facility: [facility] Address: [address] [place] [address] Result Comment: The [place] Diabetes Association (ADA) provides guidance for cutoff values for fasting glucose and random glucose. The ADA defines fasting as no caloric intake for at least 8 hours. Fasting plasma glucose results between 100 to 125 [...] Standards of Medical Care in Diabetes 2016, [place] Diabetes Association. Diabetes Care. 2016.39(Suppl 1). Performed By: #### 2 4323-8, 53287-2 ####[facility] LABIA [id number] [place] [address] [place] Potassium [Moles/Vol] 4.7 mmol/L Normal 3.7-5.1 [facility] Comment on above: Order Comment: Speci men Type: BLOOD SPECIMENOrdering Facility: [facility] Address: [address] [place] [address] Performed By: #### 2 4323-8, 53408-7 ####[facility] LABIA [id number] [place] [address] [place] Protein [Mass/Vol] 7.2 g/dL Normal 6.3-8.0 [facility] Comment on above: Order Comment: Speci men Type: BLOOD SPECIMENOrdering Facility: [facility] Address: [address] [place] [address] Performed By: #### 2 4323-8, 47143-3 ####[facility] LABCLIA [id number] [address] [address] [place] Sodium [Moles/Vol] 140 mmol/L Normal 136-144 [facility] Comment on above: Order Comment: Speci men Type: BLOOD SPECIMENOrdering Facility: [facility] Address: [address] [place] [address] Performed By: #### 2 4323-8, 75344-6 ####[facility] LABIA [id number] [place] [address] [place] Urea nitrogen [Mass/Vol] 14 mg/dL Normal 7-21 [facility] Comment on above: Order Comment: Speci men Type: BLOOD SPECIMENOrdering Facility: [facility] Address: [address] [place] [address] Performed By: #### 2 4323-8, 74930-4 ####[facility] LABIA [id number] [place] [address] [place] HbA1c (Bld)on 11-28-2023 Average glucose Estimated from glycated hemoglobin (Bld) [Mass/Vol] 146 mg/dL Normal [facility] Comment on above: Order Comment: Speci men Type: BLOOD SPECIMENOrdering Facility: [facility] Address: [address] [place] [address] Result Comment: eAG: (Estimated average glucose) is a calculated value from HgbA1c and is rental representative of the average blood glucose level in the last 2-3 month period. Performed By: #### 5 5454-3 ####[facility] [id number] [place] [address] [place] HbA1c (Bld) [Mass fraction] 6.7 % High 4.3-5.6 [facility] Comment on above: Order Comment: Speci men Type: BLOOD SPECIMENOrdering Facility: [facility] Address: [address] [place] [address] Result Comment: Amer [place] Diabetes Association guidelines indicate that patients with HgbA1c in the range 5.7-6.4% are at increased risk for development of diabetes, and intervention by lifestyle modification may be beneficial. HgbA1c greater or equal to 6.5% is considered diagnostic of diabetes. Performed By: #### 5 5454-3 ####[facility] LABCLIA [id number] [place] [address] [place] Lipid 1996 panelon 4 Cholesterol [Mass/Vol] 184 mg/dL Normal <200 [facility] Comment on above: Order Comment: Speci men Type: BLOOD SPECIMENOrdering Facility: [facility] Address: [address] [place] [address] Result Comment: <200 mg/dL, Desirable 200-239 mg/dL, Borderline high >239 mg/dL, High Performed By: #### 2 4323-8, 48993-9 ####[facility] LABCLIA [id number] [address] STATES OF [facility] Cholesterol in HDL [Mass/Vol] 60 mg/dL Normal >39 [facility] Comment on above: Order Comment: Epi lind Type: BLOOD SPECIMENOrdering Facility: [facility] Address: [address] [place] [address] Result Comment: 40-5 9 mg/dL, Acceptable >59 mg/dL, High: Negative risk factor for coronary heart disease <40 mg/dL, Low: Positive risk factor for coronary heart disease Performed By: #### 2 4323-8, 97333-5 ####[facility] LABCLIA [id number] [address] [place] Cholesterol in LDL [Mass/Vol] 106 mg/dL High <100 [facility] Comment on above: Order Comment: Epi men Type: BLOOD SPECIMENOrdering Facility: [facility] Address: [address] [place] [address] Result Comment: <100 mg/dL, Optimal 100-129 mg/dL, Near optimal/above optimal 130-159 mg/dL, Borderline high 160-189 mg/dL, High >189 mg/dL, Very high Secondary prevention optimal LDL Cholesterol levels are recommended to be < 70 mg/dL Performed By: #### 2 4323-8, 81492-6 ####[facility] LABCLIA [id number] [place] [address] [place] Cholesterol in LDL/Cholesterol in HDL [Mass ratio] 1.77 {ratio} Normal <2.54 [facility] Comment on above: Order Comment: Speci men Type: BLOOD SPECIMENOrdering Facility: [facility] Address: [address] [place] [address] Result Comment: Refe rence: 1. National Cholesterol Education Program ATP III Guideline At-A-Glance Quick Desk Reference: National Heart, Lung, and Blood [place]. National Institutes of Health. 2001: NIH Publication No. 01-3305. 2. An International Atherosclerosis Society position paper: global recommendations for the management of dyslipidemia: executive summary, Atherosclerosis. 2014: 232(2):410-413. Performed By: #### 2 4323-8, 22449-9 ####[facility] LABIA [id number] [place] [address] [place] Cholesterol in VLDL [Mass/Vol] 18 mg/dL Normal <30 [facility] Comment on above: Order Comment: Epi lind Type: BLOOD SPECIMENOrdering Facility: [facility] Address: [address] [place] [address] Performed By: #### 2 4323-8, 16612-2 ####[facility] LABIA [id number] [place] [address] [place] Cholesterol non HDL [Mass/Vol] 124 mg/dL Normal <130 [facility] Comment on above: Order Comment: Epi men Type: BLOOD SPECIMENOrdering Facility: [facility] Address: [address] [place] [address] Result Comment: <130 mg/dL, Optimal 130-159 mg/dL, Near optimal/above optimal 160-189 mg/dL, Borderline high 190-219 mg/dL, High >219 mg/dL, Very high Secondary prevention optimal non HDL Cholesterol levels are recommended to be <100 mg/dL Performed By: #### 2 4323-8, 52859-0 ####[facility] LABCLIA [id number] [place] [address] [place] Cholesterol.total/Cholest gab in HDL [Mass ratio] 3.07 {ratio} Normal <5.10 [facility] Comment on above: Order Comment: Speci men Type: BLOOD SPECIMENOrdering Facility: [facility] Address: [address] [place] [address] Performed By: #### 2 4323-8, 50047-5 ####[facility] LABCLIA [id number] [place] [address] [place] FASTING TIME 13 hrs Normal [facility] Comment on above: Order Comment: Speci men Type: BLOOD SPECIMENOrdering Facility: [facility] Address: [address] [place] [address] Performed By: #### 2 4323-8, 94514-3 ####[facility] LABCLIA [id number] [place] [address] [place] Triglyceride [Mass/Vol] 88 mg/dL Normal <150 [facility] Comment on above: Order Comment: Speci men Type: BLOOD SPECIMENOrdering Facility: [facility] Address: [address] [place] [address] Result Comment: <150 mg/dL, Normal 150-199 mg/dL, Borderline high 200-499 mg/dL, High >499 mg/dL, Very high Performed By: #### 2 4323-8, 83803-8 ####[facility] LABCLIA [id number] [place] [address] [place] TOXICOLOGY SCREEN, ROUTINE U RINEon 11-28-2023 Amphetamines Confirm (U) [Mass/Vol] Negative Normal Negative [facility] Comment on above: Order Comment: Speci men Type: URINE SPECIMENOrdering Facility: [facility] Address: [address] [place] [address] Result Comment: Cuto ff threshold at 1000 ng/mL. Performed By: #### U TOX2 ####[facility] LABCLIA [id number] [place] [address] [place] BARBITURATES, URINE Negative Normal Negative [facility] Comment on above: Order Comment: Speci men Type: URINE SPECIMENOrdering Facility: [facility] Address: [address] [place] [address] Result Comment: Cuto ff threshold at 200 ng/mL. Performed By: #### U TOX2 ####[facility] LABCLIA [id number] [place] [address] [place] BENZODIAZEPINES, UR Positive Abnormal Negative [facility] Comment on above: Order Comment: Speci men Type: URINE SPECIMENOrdering Facility: [facility] Address: [address] [place] [address] Result Comment: Cuto ff threshold at 200 ng/mL. Performed By: #### U TOX2 ####[facility] LABCLIA [id number] [place] [address] [place] Cannabinoids Screen Ql (U) Negative Normal Negative [facility] Comment on above: Order Comment: Speci men Type: URINE SPECIMENOrdering Facility: [facility] Address: [address] [place] [address] Result Comment: Cuto ff threshold at 50 ng/mL. Performed By: #### U TOX2 ####[facility] LABCLIA [id number] [place] [address] [place] Cocaine Ql (U) Negative Normal Negative [facility] Comment on above: Order Comment: Speci men Type: URINE SPECIMENOrdering Facility: [facility] Address: [address] [place] [address] Result Comment: Cuto ff threshold at 300 ng/mL. Performed By: #### U TOX2 ####[facility] LABCLIA [id number] [place] [address] [place] Ethanol (U) [Mass/Vol] <11 Normal <11 [facility] Comment on above: Order Comment: Speci men Type: URINE SPECIMENOrdering Facility: [facility] Address: [address] [place] [address] Performed By: #### U TOX2 ####[facility] LABCLIA [id number] [place] [address] [place] Opiates Screen Ql (U) Negative Normal Negative [facility] Comment on above: Order Comment: Speci men Type: URINE SPECIMENOrdering Facility: [facility] Address: [address] [place] [address] Result Comment: Cuto ff threshold at 300 ng/mL. Performed By: #### U TOX2 ####[facility] LABCLIA [id number] [place] [address] [place] oxyCODONE cutoff Screen (U) [Mass/Vol] Negative Normal Negative [facility] Comment on above: Order Comment: Speci men Type: URINE SPECIMENOrdering Facility: [facility] Address: [address] [place] [address] Result Comment: Cuto ff threshold at 100 ng/mL. Performed By: #### U TOX2 ####[facility] LABCLIA [id number] [place] [address] [place] Phencyclidine Ql (U) Negative Normal Negative [facility] Comment on above: Order Comment: Speci men Type: URINE SPECIMENOrdering Facility: [facility] Address: [address] [place] [address] Result Comment: Cuto ff threshold at 25 ng/mL. Performed By: #### U TOX2 ####[facility] LABCLIA [id number] [place] [address] [place] Emergency Department Summary on 11-18-2023 Emergency Department Summary [facility] Medical Records Department [address] [place] [address] Emergency Department Summary 11/18/23 MR#: [id number] Acct: [id number] Name: KESHIA ROJAS Rep #: [id number] : 1950 73 From: Roque Ho MD PCP: Dr. Paulo Scott MD Status:REG ER Location: ED HPI HPI - Fall History of Present Illness Chief Complaint: Fall Narrative Narrative: 73-year-old female presents with her daughter because of injury to her left knee that she sustained when she was at the gas station and had fallen on uneven pavement. Daughter relates history that the wheel had fallen off the axle in their car. She had removed everything from the vehicle, but her mother went to go check, and she stepped on uneven pavement and twisted her left knee. Patient has chronic knee pain and neuropathy for which she takes gabapentin. They state that she had her medial meniscus cartilage removed remotely, and has [id number] arthritis in her left knee anyway. She sustained a bruise to her left lateral knee and now has pain with weightbearing and walking. She denies hitting her head or loss of consciousness, or other injury. She does have history of chronic back pain. She sees Dr. Grover as her spine surgeon. [facility] Medical History Loss of hearing Wears glasses Wears partial dentures Post-menopausal Anxiety Thyroid disease Ambulates with cane Urinary incontinence Difficulty swallowing Gastric reflux Non-smoker History of echocardiogram History of stress test Seasonal allergies Hoarseness Leg cramps History of edema Shortness of breath on exertion Cardiology follow-up encounter History of cataract Ganglion cyst Atherosclerotic heart disease of [place] coronary artery without angina pectoris Cholelithiasis with chronic cholecystitis Cholecystitis Pancreatitis, gallstone Gallstones Pancreatitis Dysmetabolic syndrome X DVT (deep venous thrombosis) Barretts esophagus Hypothyroidism Fibromyalgia History of DVT (deep vein thrombosis) Essential hypertension Segmental and somatic dysfunction of pelvic region Segmental and somatic dysfunction of lumbar region Segmental and somatic dysfunction of thoracic region DDD (degenerative disc disease), lumbar History of atrial dilatation PAD (peripheral artery disease) TIA (transient ischemic attack) Osteoarthritis GERD (gastroesophageal reflux disease) IBS (irritable bowel syndrome) Cataracts, bilateral Arthritis Anemia Environmental allergies Home Medications ???Medication ???Instructions ???Recorded ???Last Taken ???Type gabapentin 100 mg capsule 300 mg PO QHS 01/11/14 05/05/22 History diazepam 5 mg tablet 5 mg PO QHS PRN anxiety 01/13/19 05/05/22 History aspirin 81 mg tablet,delayed 81 mg PO DAILY@0800 02/09/19 05/05/22 History release multivitamin 1 tab PO DAILY 04/08/19 05/05/22 History cholecalciferol (vitamin D3) 125 125 mcg PO DAILY 10/11/19 05/05/22 History mcg (5,000 unit) capsule inhalational spacing device #1 ea 10/11/19 Unknown Rx (BreatheRite MDI Spacer) acetaminophen 500 mg capsule 500 mg PO Q6H PRN Pain 05/05/22 Unknown History levothyroxine 88 mcg tablet 88 mcg PO DAILY 07/26/22 04/23/23 History ipratropium 0.5 mg-albuterol 3 mg 3 ml inhalation Q4H PRN PRN SOB 10/02/22 Unknown Rx (2.5 mg base)/3 mL nebulization /OR WHEEZING #180 mL soln amlodipine 5 mg tablet 2.5 mg PO DAILY 01/31/23 04/23/23 History cranberry fruit concentrate 250 mg 250 mg PO DAILY 01/31/23 Unknown History chewable tablet (Azo Cranberry) lactulose 20 gram/30 mL oral 20 g (30 mL) PO QHS 90 days #2,700 08/15/23 Unknown Rx solution mL pantoprazole 40 mg tablet,delayed 40 mg PO BID 90 days #180 tabs 08/15/23 Unknown Rx release spironolactone 25 mg tablet 25 mg PO 1700 PRN 08/15/23 Unknown History budesonide 0.5 mg/2 mL suspension 0.5 mg (2 mL) inhalation Q12H #120 10/15/23 Unknown Rx for nebulization mL Allergy/AdvReac Type Severity Reaction Status Date / Time latex Allergy Unknown PT UNSURE Verified 11/18/23 18:07 OF REACTION adhesive Allergy Unknown Verified 11/18/23 18:07 benzocaine (From Cetacaine) Allergy Unknown Verified 11/18/23 18:07 butamben (From Cetacaine) Allergy Vomiting Verified 11/18/23 18:07 cortisone (Cortisone) Allergy Unknown Verified 11/18/23 18:07 dipyridamole (From Aggrenox) Allergy Unknown Verified 11/18/23 18:07 lansoprazole (From Prevacid) Allergy Unknown Verified 11/18/23 18:07 meclizine Allergy Unknown Verified 11/18/23 18:07 methylprednisolone acetate Allergy Angioedema Verified 11/18/23 18:07 (From Depo-Medrol) metoprolol Allergy Unknown Verified 11/18/23 18:07 omeprazole (From Prilosec) Allergy Unknown Verified 11/18/23 18:07 omeprazole magnesium (From Allergy (more content not included)... Normal [facility] Knee 4 or More Viewson 11-17 Knee 4 or More Views [facility] Imaging Services [address] [place] [address] Knee 4 or More Views MR#: [id number] Acct: [id number] Name: KESHIA ROJAS Rep #: [id number] : 1950 F 73 From: Edilberto Jurado MD PCP: Dr. Paulo Scott MD Status: PRE ER Study: Knee 4 or More Views Date of Exam: 11/18/23 Exam# [id number] Ordering Dr: Rafal Bell P. [id number] INDICATION: Trauma, fall, injury EXAMINATION/TECHNIQUE: X-RAY - LEFT XR Knee Complete 4 Views or More 4 VIEWS COMPARISON: 05/05/2022 FINDINGS: SOFT TISSUES: No soft tissue swelling or gas. No radiopaque foreign body. BONES/JOINTS: No acute fracture. Joint spaces anatomically aligned with stable mild tricompartmental degenerative changes. No sclerotic or destructive changes observed. RAD/Knee 4 or More Views IMPRESSION: No acute bony abnormality. Electronically Signed: Edilberto Jurado MD at 19:11 EDT , CC: Dr. Paulo Scott MD; ED PHYSICIAN PROVIDER Literary Agent: Signed Normal [facility] CNOVon 10-17-2023 CNOV Office Visit (INTMWS ) ----- KESHIA ROJAS ([id number]) 1950 F Date Time Provider Department 10/17/23 10:20 AM JUAN RODRIGUEZ INTMWS During your visit today, we recorded the following information about you: Pulse Respiration Blood pressure Weight 83/minute 14/minute 128/66 87.3 kg Height 1.626 m Juan Rodriguez, MOLDING MACHINE SETTER.AIRPLANE DISPATCHER 10/17/2023 10:52 AM Signed SUBJECTIVE: Depression Screening Never done RSV Vaccine(1 - 1-dose 60+ series) Never done Shingrix Vaccine(2 of 3) due on 05/01/2012 DTaP,Tdap,Td Vaccine(1 - Tdap) due on 11/19/2019 Covid-19 Vaccine(3 - 2022- season) due on 11/15/2022 Advance Directive Discussion due on 03/17/2023 Mammogram Screening due on 09/14/2023 HPI Keshia Rojas is a 73 year old female. PMH significant for ACTIVE [...] today for routine follow up visit. She presents today regarding possible hemorrhoid she noted yesterday when washing up in the evening. Notes prior history of hemorrhoids. Some pain with bowel movement in the area noted yesterday. Notes chronic constipation, typically bowel movements a couple times a week. She reports 3 bowel movements yesterday, partially firm and partially soft. She did not try any home remedies as yet. She notes no BRBPR black or tarry stool. Chronic intermittent abdominal pain relieved with BM unchanged from usual baseline. Notes she has been out of constipation remedy for a couple of weeks. Review of medications indicates she has been taking lactulose per Dr. Casper surgery scheduling coordinator. She notes limited fluid intake yesterday due to working and unable to. She wears an absorbent undergarment routinely. She is s/p colonoscopy [address] Casper. Hemorrhoids are not mentioned in the report. 1 polyp was removed. Review of Systems Constitutional: Negative. HENT: Negative. Respiratory: Negative. Cardiovascular: Negative. Gastrointestinal: Positive for rectal pain. Musculoskeletal: Positive for arthralgias. Objective BP 128/66 (BP Site: Left Arm, BP Position: Sitting, BP Cuff Size: Large Adult) Pulse 83 Resp 14 Ht 162.6 cm (5' 4) Wt 87.3 kg (192 lb 7.4 oz) SpO2 95% BMI 33.04 kg/m? Physical Exam Vitals and nursing note reviewed. Constitutional: Appearance: Normal appearance. HENT: Head: Normocephalic and atraumatic. Eyes: Conjunctiva/sclera: Conjunctivae normal. Neck: Thyroid: No thyromegaly. Vascular: No JVD. Cardiovascular: Rate and Rhythm: Normal rate and regular rhythm. Heart sounds: Normal heart sounds. Pulmonary: Effort: Pulmonary effort is normal. Breath sounds: Normal breath sounds. Abdominal: General: Bowel sounds are normal. Palpations: Abdomen is soft. Comments: + external hemorrhoid x1,no bleeding, does not appear thrombosed Musculoskeletal: Right lower leg: Edema (1+) present. Left lower leg: Edema (1+) present. Lymphadenopathy: Cervical: Left cervical: No superficial cervical adenopathy. Skin: General: Skin is warm and dry. Neurological: General: No focal deficit present. Mental Status: She is alert and oriented to person, place, and time. Senior Sourcing Manager present, NIMO. ALLERGIES Allergen Reactions Adhesive Rash ECG patch [...] mandibular pain, lymphadenopathy, possible angio edema per [facility] ER note 04/24/2022 Meclizine Swelling URINARY RETENTION,FACE FELT FUN (more content not included)... Normal [facility] ----- KESHIA ROJAS ([id number]) 1950 F Date Time Provider Department 10/17/23 PAULO SCOTT INTWS During your visit today, we recorded the following information about you: Erika Polk LPN 10/17/2023 8:31 AM Signed Pt called in to report she has a lump next to anus. Pt called Dr. Casper's office and they told her to call her pcp. Pt reports she noticed this yesterday. The lump is hard and painful. denies fever, bleeding. Pt also reports she is incontinent. Pt scheduled for apt today 10-17-23 with provider/team. Erika Polk LPN Allergies As of Date: 10/17/2023 Noted Allergy Reaction ADHESIVE 02/12/2023 2 - Rash Comments: ECG patch made skin red and raw; needs hypoallergenic patches for ECG and other testing needing patches AGGRENOX (ASPIRIN-DIPYRIDAMOLE) 05/27/2011 14 - Other: See Comments Comments: Headache BACTRIM (SULFAMETHOXAZOLE-TRIMETH *03/20/2006 Comments: dizzy, redness, face flushed BETADINE (POVIDONE-IODINE) 11/04/2006 2 - Rash CETACAINE ([id number]*0 09/11/2012 14 - Other: See Comments Comments: excessive mucous production CIGARETTE SMOKE 02/12/2023 12 - Shortness of Breath Comments: Hard to breathe CODEINE 03/07/2006 5 - Intolerance CORTISONE 12 - Shortness of Breath Comments: injection was given and swelled and had trouble breathing DEPO-MEDROL (METHYLPREDNISOLONE) 02/12/2023 14 - Other: See Comments Comments: FACE SWELLED AFTER CORTISONE SHOT IN KNEE DETROL (TOLTERODINE TARTRATE) 03/07/2006 5 - Intolerance Comments: HEAD ACHE ,DRY MOUTH DITROPAN (OXYBUTYNIN CHLORIDE) 03/07/2006 5 - Intolerance Comments: DIZZY,SUN SENSITIVE LATEX 11/03/2009 2 - Rash LISINOPRIL 04/26/2022 5 - Intolerance Comments: mandibular pain, lymphadenopathy, possible angio edema per [facility] ER note 04/24/2022 MECLIZINE 03/07/2006 7 - Swelling Comments: URINARY RETENTION,FACE FELT FUNNY METOPROLOL 04/24/2006 8 - GI Upset Comments: headache.itching.hives. MYRBETRIQ (MIRABEGRON) 12/26/2014 14 - Other: See Comments Comments: elevated BP PREVACID (LANSOPRAZOLE) 03/07/2006 8 - GI Upset Comments: GAS,BURPING HEADACHE PRILOSEC (OMEPRAZOLE MAGNESIUM) 6 - Diarrhea TAPE (ADHESIVE TAPE (ROSINS)) 02/12/2023 2 - Rash Comments: Paper tape TIZANIDINE 03/24/2014 14 - Other: See Comments Comments: increased pain ZELNORM (TEGASEROD HYDROGEN RACHELL*03/07/2006 4 - Hives Date Reviewed: 09/17/2023 Reviewed by: Lisa Jasmine LPN - Fully Assessed Reason for Visit: Future Appointment [256] Prescriptions as of 10/17/2023 - diazePAM (VALIUM) 5 mg tablet Take 1 tablet by mouth at bedtime as needed (vertigo or anxiety) for up to 180 days. Do not start before September 24, 2023. - lactulose 10 gram/15 mL solution Take 30 mL by mouth daily at bedtime. - levothyroxine (SYNTHROID) 88 mcg tablet Take 1 tablet by mouth once daily. Take on empty stomach. For Thyroid - amLODIPine (NORVASC) 5 mg tablet Take 1 tablet by mouth once daily. - diclofenac (VOLTAREN) 1 % topical gel Apply 2 g to affected area four times daily. - cyclobenzaprine (FLEXERIL) 5 mg tablet Take 1 tablet by mouth three times a day as needed for muscle spasm. - lidocaine (LIDODERM) 5 % Apply 1 Patch as directed once daily. Remove old patch after wearing for 12 hours and then 12 hours later apply new patch for 12 hours on the site and 12 hours off the site. Location: right lower back. - ipratropium-albuterol (DUONEB) 0.5 mg-3 mg(2.5 mg base)/3 mL nebu Inhale 3 mL as instructed every 6 hours. Unit dose pack. dr Park pulmonology. - gabapentin (NEURONTIN) 100 mg capsule Take 3 capsules by mouth daily at bedtime for 180 days. Do not start before April 06, 2023. - spironolactone (ALDACTONE) 25 mg tablet Take 1 tablet by mouth once daily. - Artificial Tear, Hypromellose, (SYSTANE GEL) 0.3 % gel 1 Drop daily at bedtime. - aspirin, enteric coated (ASPIRIN, ENTERIC COATED) 81 mg EC tablet Take 81 mg by mouth. - budesonide (PULMICORT) 0.5 mg/2 mL nebulizer solution Use 0.5 mg via nebulizer once daily. - cranberry fruit concentrate (AZO CRANBERRY) 250 mg chew Take by mouth. - cholecalciferol, vitamin D3, 10 mcg (400 [...] 1 tablet by mouth twice daily. Meds C (more content not included)... Normal [facility] Pulmonary Visit Reporton Pulmonary Visit Report [facility] [place] [address] [place] [address] OFFICE VISIT Date of Service: 10/15/23 MR#: [id number] Acct: [id number] Name: KESHIA ROJAS Rep #: [id number] : 1950 Provider: VERA Lewis Age/Sex: 73/F [place] [facility] [place] Status: Signed Assessment and Plan Assessment and Plan (1) Asthma: Status: Chronic Qualifiers: Asthma complication type: uncomplicated Asthma persistence: persistent Asthma severity: moderate Qualified Code(s): J45.40 - Moderate persistent asthma, uncomplicated Plan: Stable, no signs of exacerbation of asthma today. No change in maintenance medications, I did encourage her to utilize budesonide twice daily at least during seasons of triggers. No additional testing at this time. Contact the office with any signs of new or worsening symptoms. Follow-up in 1 year. Medications: New budesonide 0.5 mg (2 mL) inhalation Q12H 120 mL 11RF J45.40 - Moderate persistent asthma, uncomplicated Plan Details Goals Barriers: Goals Improve ROM Decrease pain Decrease inflammation Barriers Previous lumbar surgery with hardware. Follow Up: 1 Year ([facility]) HPI 6 M FU Chief Complaint: Routine follow-up HPI Comments Details: This patient presents to the office today for follow-up of her asthma. She is ambulatory with the use of a cane. She is currently on room air. She has not recently been seen in the ED or urgent care for any respiratory illness. She has not required any antibiotics or prednisone for any breathing problems. She does have shortness of breath on exertion, this is not new and has not progressed. She has an occasional cough that is productive of clear-colored sputum. Cough seems to be more prevalent if her neighbors were mowing. She denies any cough, sputum production or hemoptysis.. She has occasional chest tightness but denies any chest pain or palpitations. She has not had any fever, chills or body aches. She admits that she has not recently been compliant with budesonide. She states that she has been busy taking care of my . She has not required the use of albuterol or the nebulizer. Intake Vital Signs 04/14/23 07:13 08/15/23 10:54 10/15/23 07:49 Height 5 ft 4 in 5 ft 4 in 5 ft 4 in Weight: 190 lb BMI 32.5 BP 133/77 H Blood Pressure Location Lt brachial Position Sitting Respiration 17 Pulse 77 Pulse Source Monitor Temp 97.3 F L Temperature Source Temporal Artery Pulse Oximetry (%) 96 Oxygen Delivery Method room air Intake Visit Reasons: 6 M FU Chief Complaint: ER FOLLOW-UP - LUMBAR SPINE Motor Analyst Required: No DME Vendor: N/A Accompanied by: Self Is patient in pain?: No Allergies latex Allergy (Unknown, Verified 10/15/23 10:50) PT UNSURE OF REACTION adhesive Allergy (Verified 10/15/23 10:50) Unknown benzocaine (From Cetacaine) Allergy (Verified 10/15/23 10:50) Unknown butamben (From Cetacaine) Allergy (Verified 10/15/23 10:50) Unknown cortisone (Cortisone) Allergy (Verified 10/15/23 10:50) Unknown dipyridamole (From Aggrenox) Allergy (Verified 10/15/23 10:50) Unknown lansoprazole (From Prevacid) Allergy (Verified 10/15/23 10:50) Unknown meclizine Allergy (Verified 10/15/23 10:50) Unknown methylprednisolone acetate (From Depo-Medrol) Allergy (Verified 10/15/23 10:50) Angioedema metoprolol Allergy (Verified 10/15/23 10:50) Unknown omeprazole (From Prilosec) Allergy (Verified 10/15/23 10:50) Unknown omeprazole magnesium (From Prilosec) Allergy (Verified 10/15/23 10:50) Unknown oxybutynin chloride (From Ditropan) Allergy (Verified 10/15/23 10:50) Unknown povidone-iodine (From Betadine) Allergy (Verified 10/15/23 10:50) Unknown sulfamethoxazole (From Bactrim) Allergy (Verified 10/15/23 10:50) Unknown tegaserod (From Zelnorm) Allergy (Verified 10/15/23 10:50) Hives tegaserod hydrogen maleate (From Zelnorm) Allergy (Verified 10/15/23 10:50) Unknown tetracaine (From Cetacaine) Allergy (Verified 10/15/23 10:50) Unknown tolterodine tartrate (From Detrol) Allergy (Verified 10/15/23 10:50) Unknown trimethoprim (From Bactrim) Allergy (Verified 10/15/23 10:50) Unknown lisinopril Adverse Reaction (Intermediate, Verified 10/15/23 10:50) Angioedema adhesive tape Adverse Reaction (Verified 10/15/23 10:50) Rash codeine Adverse Reaction (Verified 10/15/23 10:50) Unknown mirabegron (From Myrbetriq) Adverse Reaction (Verified 10/15/23 10:50) Other tizanidine Adverse Reaction (Verified 10/15/23 10:50) Other vaccine adjuvant system, AS01B liposomal (From Shingrix (PF)) Adverse Reaction (Verified 10/15/23 10:50) Rash varicella-zoster virus glycoprotein E, recombinant (From Shingrix (PF)) Adverse Reaction (Verified 10/15/23 10:50) Rash Medications ???Medica (more content not included)... [facility] 09-22-2023 [facility] KESHIA ROJAS ([id number]) 1950 F Date Time Provider Department 09/22/23 PAULO SCOTT [facility] During your visit today, we recorded the following information about you: Jessica Saini LPN 09/22/2023 9:36 AM Signed Pt calls to report that she had OV 09/17/23 and rx for diazepam when to [facility]. Pt is asking if rx can be sent to [facility] instead. BELEN Gutierrez Liza D, MD 09/22/2023 7:58 PM Signed The following approved medication requests have been transmitted electronically. Requested Prescriptions Signed Prescriptions Disp Refills diazePAM (VALIUM) 5 mg tablet 30 tablet 5 Sig: Take 1 tablet by mouth at bedtime as needed (vertigo or anxiety) for up to 180 days. Do not start before September 24, 2023. Authorizing Provider: PAULO SCOTT MD Allergies As of Date: 09/22/2023 Noted Allergy Reaction ADHESIVE 02/12/2023 2 - Rash Comments: ECG patch made skin red and raw; needs hypoallergenic patches for ECG and other testing needing patches AGGRENOX (ASPIRIN-DIPYRIDAMOLE) 05/27/2011 14 - Other: See Comments Comments: Headache BACTRIM (SULFAMETHOXAZOLE-TRIMETH *03/20/2006 Comments: dizzy, redness, face flushed BETADINE (POVIDONE-IODINE) 11/04/2006 2 - Rash CETACAINE ([id number] 09/11/2012 14 - Other: See Comments Comments: excessive mucous production CIGARETTE SMOKE 02/12/2023 12 - Shortness of Breath Comments: Hard to breathe CODEINE 03/07/2006 5 - Intolerance CORTISONE 12 - Shortness of Breath Comments: injection was given and swelled and had trouble breathing DEPO-MEDROL (METHYLPREDNISOLONE) 02/12/2023 14 - Other: See Comments Comments: FACE SWELLED AFTER CORTISONE SHOT IN KNEE DETROL (TOLTERODINE TARTRATE) 03/07/2006 5 - Intolerance Comments: HEAD ACHE ,DRY MOUTH DITROPAN (OXYBUTYNIN CHLORIDE) 03/07/2006 5 - Intolerance Comments: DIZZY,SUN SENSITIVE LATEX 11/03/2009 2 - Rash LISINOPRIL 04/26/2022 5 - Intolerance Comments: mandibular pain, lymphadenopathy, possible angio edema per [facility] ER note 04/24/2022 MECLIZINE 03/07/2006 7 - Swelling Comments: URINARY RETENTION,FACE FELT FUNNY METOPROLOL 04/24/2006 8 - GI Upset Comments: headache.itching.hives. MYRBETRIQ (MIRABEGRON) 12/26/2014 14 - Other: See Comments Comments: elevated BP PREVACID (LANSOPRAZOLE) 03/07/2006 8 - GI Upset Comments: GAS,BURPING HEADACHE PRILOSEC (OMEPRAZOLE MAGNESIUM) 6 - Diarrhea TAPE (ADHESIVE TAPE (ROSINS)) 02/12/2023 2 - Rash Comments: Paper tape TIZANIDINE 03/24/2014 14 - Other: See Comments Comments: increased pain ZELNORM (TEGASEROD HYDROGEN RACHELL*03/07/2006 4 - Hives Date Reviewed: 09/17/2023 Reviewed by: Lisa Jasmine LPN - Fully Assessed Reason for Visit: Medication Problem [65] Visit Diagnoses:Vertigo [R42] Anxiety [F41.9] Order(s):[START ON 09/24/2023] diazePAM (VALIUM) 5 mg tabletTake 1 tablet by mouth at bedtime as needed (vertigo or anxiety) for up to 180 days. Do not start before September 24, 2023.Disp: 30 tabletRfl: 5 Prescriptions as of 09/23/2023 - diazePAM (VALIUM) 5 mg tablet Take 1 tablet by mouth at bedtime as needed (vertigo or anxiety) for up to 180 days. Do not start before September 24, 2023. - lactulose 10 gram/15 mL solution Take 30 mL by mouth daily at bedtime. - levothyroxine (SYNTHROID) 88 mcg tablet Take 1 tablet by mouth once daily. Take on empty stomach. For Thyroid - amLODIPine (NORVASC) 5 mg tablet Take 1 tablet by mouth once daily. - diclofenac (VOLTAREN) 1 % topical gel Apply 2 g to affected area four times daily. - cyclobenzaprine (FLEXERIL) 5 mg tablet Take 1 tablet by mouth three times a day as needed for muscle spasm. - lidocaine (LIDODERM) 5 % Apply 1 Patch as directed once daily. Remove old patch after wearing for 12 hours and then 12 hours later apply new patch for 12 hours on the site and 12 hours off the site. Location: right lower back. - ipratropium-albuterol (DUONEB) 0.5 mg-3 mg(2.5 mg base)/3 mL nebu Inhale 3 mL as instructed every 6 hours. Unit dose pack. dr Park pulmonology. - gabapentin (NEURONTIN) 100 mg capsule Take 3 capsules by mouth daily at bedtime for 180 days. Do not start before April 06, 2023. - spironolactone (ALDACTONE) 25 mg tablet Take 1 tablet by mouth once daily. - Artificial Tear, Hypromellose, (SYSTANE GEL) 0.3 % gel 1 Drop daily at bedtime. - aspirin, enteric coated (ASPIRIN, ENTERIC COATED) 81 mg EC tablet Take 81 mg by mouth. - budesonide (PULMICORT) 0.5 mg/2 mL nebulizer solution Use 0.5 mg via nebulizer once daily. - cranberry fruit concentrate (AZO CRANBERRY) 250 mg chew Take by mouth. - cholecalciferol, vitamin D3, 10 mcg (400 unit) cap Take 400 Units by mouth once daily. - COMPOUNDED PRESCRIPTION SEMI ELECTRIC HOSPITAL BED AND MATTRESS, with side rails Diagnoses: (K22.70) Sarmiento's esophagus wi (more content not included)... Normal [facility] CNOVon 09-17-2023 CNOV Office Visit (INTMWS ) ----- KESHIA ROJAS ([id number]) 1950 F Date Time Provider Department 09/17/23 1:40 PM PAULO SCOTT INTMWS During your visit today, we recorded the following information about you: Temperature Pulse Respiration Blood pressure 98.4 degrees 87/minute 18/minute 128/78 Weight 86.6 kg Paulo Scott MD 10/19/2023 6:42 PM Signed This note was created using NoteWriter. Subjective Keshia Rojas is a 73 year old female. Patient presents with: F/U 6 months: Labs prior SUBJECTIVE: Keshia Rojas is a 73 year old year old lady here today for 6 month follow up appointment for review of medical conditions. Noted toes get stepped on at work.Toes with some redness. Great toenails with yellow discoloration and onycholysis. Injection improved pain in back for 3 weeks but pain returned. Will follow up with Dr. Paz. Work keeps adding her to schedule though not supposed to work so many hours. Supposed to have 2 days off. No only given Friday off. Lactulose at night helps with bowels. Friend managins GI issues. Diazepam still helps for anxiety. Helps with rest. 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 Charlton) Cataracts, both eyes Coronary atherosclerosis of unspecified type of vessel, [place] or graft minimal plaque on cath 08/06/2006 DVT (deep venous thrombosis) ([facility]) 2009 Right leg OCTOBER 2009 NOT TREATED Dysmetabolic syndrome X Esophageal reflux Fibromyalgia better with Lyrica Floppy eyelid syndrome Hiatal hernia Large when seen on EGD 10/2010 at [facility] (Dr. 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 levothyroxine (SYNTHROID) 88 mcg tablet Take 1 tablet by mouth once daily. Take on empty stomach. For Thyroid amLODIPine (NORVASC) 5 mg tablet Take 1 tablet by mouth once daily. diazePAM (VALIUM) 5 mg tablet Take 1 tablet by mouth at bedtime as needed (vertigo or anxiety) for up to 90 days. diclofenac (VOLTAREN) 1 % topical gel Apply 2 g to affected area four times daily. cyclobenzaprine (FLEXERIL) 5 mg tablet Take 1 tablet by mouth three times a day as needed for muscle spasm. lidocaine (LIDODERM) 5 % Apply 1 Patch as directed once daily. Remove old patch after wearing for 12 hours and then 12 hours later apply new patch for 12 hours on the site and 12 hours off the site. Location: right lower back. ipratropium-albuterol (DUONEB) 0.5 mg-3 mg(2.5 mg base)/3 mL nebu Inhale 3 mL as instructed every 6 hours. Unit dose pack. dr Park pulmonology. gabapentin (NEURONTIN) 100 mg capsule Take 3 capsules by mouth daily at bedtime for 180 days. Do not start before April 06, 2023. spironolactone (ALDACTONE) 25 mg tablet Take 1 tablet by mouth once daily. (Patient taking differently: Take 25 mg by mouth once daily as needed. When edema worse) aspirin, enteric coated (ASPIRIN, ENTERIC COATED) 81 [...] Take 1 tablet by mouth twice daily. Artificial Tear, Hypromellose, (SYSTANE GEL) 0.3 % gel 1 Drop daily at bedtime. (Patient not taking: Reported on 09/17/2023) No current facility-administered medications for this visit. Review of Systems Objective BP 128/78 Pulse 87 Temp 36.9 ?C (98.4 ?F) Resp 18 Wt 86.6 kg (191 lb) SpO2 97% BMI 32.79 kg/m? Physical Exam Latest Ref Rng 02/19/2023 08/29/2023 WBC 3.70 - 11.00 k/uL 9.12 8.49 RBC 3.90 - 5.20 m/uL 4.50 4.78 Hemoglobin 11.5 - 15.5 g/dL 14.0 14.6 Hematocrit 36.0 - 46.0 % 42.7 44.6 MCV 80.0 - 100.0 fL 94.9 93.3 MCH 26.0 (more content not included)... Normal [facility] CBC W Auto Differential pane l (Bld)on 08-29-2023 Basophils (Bld) [#/Vol] 0.09 10*3/uL Normal <0.11 [facility] Comment on above: Order Comment: Speci men Type: BLOOD SPECIMENOrdering Facility: [facility] Address: [address] [place] [address] Performed By: #### 5 7021-8 ####[facility] LABCLIA [id number] [place] [address] [place] Basophils/100 WBC (Bld) 1.1 % Normal [facility] Comment on above: Order Comment: Speci men Type: BLOOD SPECIMENOrdering Facility: [facility] Address: [address] [place] [address] Performed By: #### 5 7021-8 ####[facility] LABCLIA [id number] [place] [address] [place] Differential cell count method Nom (Bld) Auto Normal [facility] Comment on above: Order Comment: Speci men Type: BLOOD SPECIMENOrdering Facility: [facility] Address: [address] [place] [address] Performed By: #### 5 7021-8 ####[facility] LABCLIA [id number] [place] [address] [place] Eosinophils (Bld) [#/Vol] 0.67 10*3/uL High <0.46 [facility] Comment on above: Order Comment: Speci men Type: BLOOD SPECIMENOrdering Facility: [facility] Address: [address] [place] [address] Performed By: #### 5 7021-8 ####[facility] LABCLIA [id number] [place] [address] [place] Eosinophils/100 WBC (Bld) 7.9 % Normal [facility] Comment on above: Order Comment: Speci men Type: BLOOD SPECIMENOrdering Facility: [facility] Address: [address] [place] [address] Performed By: #### 5 7021-8 ####[facility] LABCLIA [id number] [place] [address] [place] Erythrocyte distribution width (RBC) [Ratio] 13.3 % Normal 11.5-15.0 [facility] Comment on above: Order Comment: Speci men Type: BLOOD SPECIMENOrdering Facility: [facility] Address: [address] [place] [address] Performed By: #### 5 7021-8 ####[facility] LABCLIA [id number] [place] [address] [place] Hematocrit (Bld) [Volume fraction] 44.6 % Normal 36.0-46.0 [facility] Comment on above: Order Comment: Speci men Type: BLOOD SPECIMENOrdering Facility: [facility] Address: [address] [place] [address] Performed By: #### 5 7021-8 ####[facility] LABCLIA [id number] [place] [address] [place] Hemoglobin (Bld) [Mass/Vol] 14.6 g/dL Normal 11.5-15.5 [facility] Comment on above: Order Comment: Speci men Type: BLOOD SPECIMENOrdering Facility: [facility] Address: [address] [place] [address] Performed By: #### 5 7021-8 ####[facility] LABCLIA [id number] [place] [address] [place] Immature granulocytes (Bld) [#/Vol] 0.03 10*3/uL Normal <0.10 [facility] Comment on above: Order Comment: Speci men Type: BLOOD SPECIMENOrdering Facility: [facility] Address: [address] [place] [address] Performed By: #### 5 7021-8 ####[facility] LABCLIA [id number] [place] [address] [place] Immature granulocytes/100 WBC (Bld) 0.4 % Normal [facility] Comment on above: Order Comment: Speci men Type: BLOOD SPECIMENOrdering Facility: [facility] Address: [address] [place] [address] Performed By: #### 5 7021-8 ####[facility] LABCLIA [id number] [place] [address] [place] Lymphocytes (Bld) [#/Vol] 2.67 10*3/uL Normal 1.00-4.0 0 [facility] Comment on above: Order Comment: Speci men Type: BLOOD SPECIMENOrdering Facility: [facility] Address: [address] [place] [address] Performed By: #### 5 7021-8 ####[facility] LABCLIA [id number] [place] [address] [place] Lymphocytes/100 WBC (Bld) 31.4 % Normal [facility] Comment on above: Order Comment: Speci men Type: BLOOD SPECIMENOrdering Facility: [facility] Address: [address] [place] [address] Performed By: #### 5 7021-8 ####[facility] LABCLIA [id number] [place] [address] [place] MCH (RBC) [Entitic mass] 30.5 pg Normal 26.0-34.0 [facility] Comment on above: Order Comment: Speci men Type: BLOOD SPECIMENOrdering Facility: [facility] Address: [address] [place] [address] Performed By: #### 5 7021-8 ####[facility] LABCLIA [id number] [place] [address] [place] MCHC (RBC) [Mass/Vol] 32.7 g/dL Normal 30.5-36.0 [facility] Comment on above: Order Comment: Speci men Type: BLOOD SPECIMENOrdering Facility: [facility] Address: [address] [place] [address] Performed By: #### 5 7021-8 ####[facility] LABCLIA [id number] [place] [address] [place] MCV (RBC) [Entitic vol] 93.3 fL Normal 80.0-100.0 [facility] Comment on above: Order Comment: Speci men Type: BLOOD SPECIMENOrdering Facility: [facility] Address: [address] [place] [address] Performed By: #### 5 7021-8 ####[facility] LABIA [id number] [place] [address] [place] Monocytes (Bld) [#/Vol] 0.70 10*3/uL Normal <0.87 [facility] Comment on above: Order Comment: Speci men Type: BLOOD SPECIMENOrdering Facility: [facility] Address: [address] [place] [address] Performed By: #### 5 7021-8 ####[facility] LABCLIA [id number] [place] [address] [place] Monocytes/100 WBC (Bld) 8.2 % Normal [facility] Comment on above: Order Comment: Speci men Type: BLOOD SPECIMENOrdering Facility: [facility] Address: [address] [place] [address] Performed By: #### 5 7021-8 ####[facility] LABCLIA [id number] [place] [address] [place] Neutrophils (Bld) [#/Vol] 4.33 10*3/uL Normal 1.45-7.5 0 [facility] Comment on above: Order Comment: Speci men Type: BLOOD SPECIMENOrdering Facility: [facility] Address: [address] [place] [address] Performed By: #### 5 7021-8 ####[facility] LABCLIA [id number] [place] [address] [place] Neutrophils/100 WBC (Bld) 51.0 % Normal [facility] Comment on above: Order Comment: Speci men Type: BLOOD SPECIMENOrdering Facility: [facility] Address: [address] [place] [address] Performed By: #### 5 7021-8 ####[facility] LABIA [id number] [place] [address] [place] Nucleated RBC (Bld) [#/Vol] 10*3/uL Normal <0.01 [facility] Comment on above: Order Comment: Speci men Type: BLOOD SPECIMENOrdering Facility: [facility] Address: [address] [place] [address] Performed By: #### 5 7021-8 ####[facility] LABIA [id number] [place] [address] [place] Nucleated RBC/100 WBC (Bld) [Ratio] 0.0 /100 WBC Normal [facility] Comment on above: Order Comment: Speci men Type: BLOOD SPECIMENOrdering Facility: [facility] Address: [address] [place] [address] Performed By: #### 5 7021-8 ####[facility] LABIA [id number] [place] [address] [place] Platelet mean volume (Bld) [Entitic vol] 10.2 fL Normal 9.0-12.7 [facility] Comment on above: Order Comment: Speci men Type: BLOOD SPECIMENOrdering Facility: [facility] Address: [address] [place] [address] Performed By: #### 5 7021-8 ####[facility] LABCLIA [id number] [address] [address] [place] Platelets (Bld) [#/Vol] 342 10*3/uL Normal 150-400 [facility] Comment on above: Order Comment: Speci men Type: BLOOD SPECIMENOrdering Facility: [facility] Address: [address] [place] [address] Performed By: #### 5 7021-8 ####[facility] LABCLIA [id number] [place] [address] [place] RBC (Bld) [#/Vol] 4.78 10*6/uL Normal 3.90-5.20 [facility] Comment on above: Order Comment: Speci men Type: BLOOD SPECIMENOrdering Facility: [facility] Address: [address] [place] [address] Performed By: #### 5 7021-8 ####[facility] LABIA [id number] [place] [address] [place] WBC (Bld) [#/Vol] 8.49 10*3/uL Normal 3.70-11.00 [facility] Comment on above: Order Comment: Speci men Type: BLOOD SPECIMENOrdering Facility: [facility] Address: [address] [place] [address] Performed By: #### 5 7021-8 ####[facility] LABIA [id number] [place] [id number] [place] Comprehensive metabolic 2000 panelon 08-29-2023 Albumin [Mass/Vol] 4.0 g/dL Normal 3.9-4.9 [facility] Comment on above: Order Comment: Speci men Type: BLOOD SPECIMENOrdering Facility: [facility] Address: [address] [place] [address] Performed By: #### 3 016-3, 52989-7, 54719-0 ####[facility] LABCLIA [id number] [place] [address] [place] ALP [Catalytic activity/Vol] 64 U/L Normal 34-123 [facility] Comment on above: Order Comment: Speci men Type: BLOOD SPECIMENOrdering Facility: [facility] Address: [address] [place] [address] Performed By: #### 3 016-3, 88409-8, 29513-0 ####[facility] LABCLIA [id number] [place] [address] [place] ALT [Catalytic activity/Vol] 31 U/L Normal 7-38 [facility] Comment on above: Order Comment: Speci men Type: BLOOD SPECIMENOrdering Facility: [facility] Address: [address] [place] [address] Performed By: #### 3 016-3, 08810-9, 45028-3 ####[facility] LABCLIA [id number] [place] [address] [place] Anion gap [Moles/Vol] 10 mmol/L Normal 8-15 [facility] Comment on above: Order Comment: Speci men Type: BLOOD SPECIMENOrdering Facility: [facility] Address: [address] [place] [address] Performed By: #### 3 016-3, 80918-0, 62454-4 ####[facility] LABCLIA [id number] [place] [address] [place] AST [Catalytic activity/Vol] 30 U/L Normal 13-35 [facility] Comment on above: Order Comment: Speci men Type: BLOOD SPECIMENOrdering Facility: [facility] Address: [address] [place] [address] Performed By: #### 3 016-3, 52781-1, 91142-6 ####[facility] LABCLIA [id number] [place] [address] [place] Bilirubin [Mass/Vol] 0.4 mg/dL Normal 0.2-1.3 [facility] Comment on above: Order Comment: Speci men Type: BLOOD SPECIMENOrdering Facility: [facility] Address: [address] [place] [address] Performed By: #### 3 016-3, 35163-5, ####[facility] LABCLIA [id number] [facility] [place] [place] [address] [place] Calcium [Mass/Vol] 9.6 mg/dL Normal 8.5-10.2 [facility] Comment on above: Order Comment: Speci men Type: BLOOD SPECIMENOrdering Facility: [facility] Address: [address] [place] [address] Performed By: #### 3 016-3, 20144-1, ####[facility] LABCLIA [id number] [place] [address] [place] Chloride [Moles/Vol] 104 mmol/L Normal 98-107 [facility] Comment on above: Order Comment: Speci men Type: BLOOD SPECIMENOrdering Facility: [facility] Address: [address] [place] [address] Performed By: #### 3 016-3, 53394-4, ####[facility] LABCLIA [id number] [facility] [address] [place] CO2 [Moles/Vol] 26 mmol/L Normal 22-30 [facility] Comment on above: Order Comment: Speci men Type: BLOOD SPECIMENOrdering Facility: [facility] Address: [address] [place] [address] Performed By: #### 3 016-3, 31710-6, ####[facility] LABCLIA [id number] [facility] [address] [address] [place] Creatinine [Mass/Vol] 0.78 mg/dL Normal 0.58-0.96 [facility] Comment on above: Order Comment: Speci men Type: BLOOD SPECIMENOrdering Facility: [facility] Address: [address] [place] [address] Performed By: #### 3 016-3, 73523-4, 90130-0 ####[facility] LABIA [id number] [place] [address] [place] Creatinine and Glomerular filtration rate.predicted panel (S/P/Bld) 80 mL/min/1.73m??? Normal >=60 [facility] Comment on above: Order Comment: Epi lind Type: BLOOD SPECIMENOrdering Facility: [facility] Address: [address] [place] [address] Result Comment: Savana mated Glomerular Filtration Rate (eGFR) is calculated using the 2020 CKD-EPI creatinine equation. This equation utilizes serum creatinine, sex, and age as parameters. The creatinine assay has traceable calibration to isotope dilution-mass spectrometry. Refer to KDIGO guidelines for clinical interpretation. In patients with unstable renal function, e.g. those with acute kidney injury, the eGFR may not accurately reflect actual GFR. Performed By: #### 3 016-3, 91085-7, 67811-1 ####[facility] LABIA [id number] [place] [address] [place] Glucose [Mass/Vol] 147 mg/dL High 74-99 [facility] Comment on above: Order Comment: Epi lind Type: BLOOD SPECIMENOrdering Facility: [facility] Address: [address] [place] [address] Result Comment: The [place] Diabetes Association (ADA) provides guidance for cutoff values for fasting glucose and random glucose. The ADA defines fasting as no caloric intake for at least 8 hours. Fasting plasma glucose results between 100 to 125 [...] Standards of Medical Care in Diabetes 2016, [place] Diabetes Association. Diabetes Care. 2016.39(Suppl 1). Performed By: #### 3 016-3, 62726-6, 40412-3 ####[facility] LABCLIA [id number] [address] [address] [place] Potassium [Moles/Vol] 4.1 mmol/L Normal 3.7-5.1 [facility] Comment on above: Order Comment: Speci men Type: BLOOD SPECIMENOrdering Facility: [facility] Address: [address] [place] [address] Performed By: #### 3 016-3, 56014-3, 41501-2 ####[facility] LABCLIA [id number] [place] [address] [place] Protein [Mass/Vol] 7.3 g/dL Normal 6.3-8.0 [facility] Comment on above: Order Comment: Speci men Type: BLOOD SPECIMENOrdering Facility: [facility] Address: [address] [place] [address] Performed By: #### 3 016-3, 32602-8, 04297-2 ####[facility] LABIA [id number] [place] [address] [place] Sodium [Moles/Vol] 140 mmol/L Normal 136-144 [facility] Comment on above: Order Comment: Speci men Type: BLOOD SPECIMENOrdering Facility: [facility] Address: [address] [place] [address] Performed By: #### 3 016-3, 68818-0, 61191-4 ####[facility] LABCLIA [id number] [place] [id number] [place] Urea nitrogen [Mass/Vol] 17 mg/dL Normal 7-21 [facility] Comment on above: Order Comment: Speci men Type: BLOOD SPECIMENOrdering Facility: [facility] Address: [address] [place] [address] Performed By: #### 3 016-3, 02158-1, 12360-6 ####[facility] LABIA [id number] [address] OF [facility] HbA1c (Bld)on 08-29-2023 Average glucose Estimated from glycated hemoglobin (Bld) [Mass/Vol] 148 mg/dL Normal [facility] Comment on above: Order Comment: Epi lind Type: BLOOD SPECIMENOrdering Facility: [facility] Address: [address] [place] [address] Result Comment: eAG: (Estimated average glucose) is a calculated value from HgbA1c and is rental representative of the average blood glucose level in the last 2-3 month period. Performed By: #### 5 5454-3 ####[facility] [id number] [address] OF [facility] HbA1c (Bld) [Mass fraction] 6.8 % High 4.3-5.6 [facility] Comment on above: Order Comment: Epi lind Type: BLOOD SPECIMENOrdering Facility: [facility] Address: [address] [place] [address] Result Comment: [place] Diabetes Association guidelines indicate that patients with HgbA1c in the range 5.7-6.4% are at increased risk for development of diabetes, and intervention by lifestyle modification may be beneficial. HgbA1c greater or equal to 6.5% is considered diagnostic of diabetes. Performed By: #### 5 5454-3 ####[facility] LABIA [id number] [address] OF [facility] Lipid 1996 panelon 4 Cholesterol [Mass/Vol] 192 mg/dL Normal <200 Cl [facility] Comment on above: Order Comment: Epi lind Type: BLOOD SPECIMENOrdering Facility: [facility] Address: [address] [place] [address] Result Comment: <200 mg/dL, Desirable 200-239 mg/dL, Borderline high >239 mg/dL, High Performed By: #### 3 016-3, 68546-6, ####[facility] LABCLIA [id number] [address] [place] Cholesterol in HDL [Mass/Vol] 57 mg/dL Normal >39 [facility] Comment on above: Order Comment: Epi lind Type: BLOOD SPECIMENOrdering Facility: [facility] Address: [address] [place] [address] Result Comment: 40-5 9 mg/dL, Acceptable >59 mg/dL, High: Negative risk factor for coronary heart disease <40 mg/dL, Low: Positive risk factor for coronary heart disease Performed By: #### 3 016-3, 82176-5, ####[facility] LABCLIA [id number] [address] [place] [facility] Cholesterol in LDL [Mass/Vol] 118 mg/dL High <100 [facility] Comment on above: Order Comment: Ireneregi lind Type: BLOOD SPECIMENOrdering Facility: [facility] Address: [address] [place] [address] Result Comment: <100 mg/dL, Optimal 100-129 mg/dL, Near optimal/above optimal 130-159 mg/dL, Borderline high 160-189 mg/dL, High >189 mg/dL, Very high Secondary prevention optimal LDL Cholesterol levels are recommended to be < 70 mg/dL Performed By: #### 3 016-3, 26997-2, ####[facility] LABCLIA [id number] [address] STATES OF [facility] Cholesterol in LDL/Cholesterol in HDL [Mass ratio] 2.07 {ratio} Normal <2.54 [facility] Comment on above: Order Comment: Epi lind Type: BLOOD SPECIMENOrdering Facility: [facility] Address: [address] [place] [address] Result Comment: Refe rence: 1. National Cholesterol Education Program ATP III Guideline At-A-Glance Quick Desk Reference: National Heart, Lung, and Blood [place]. National Institutes of Health. 2001: NIH Publication No. 01-3305. 2. An International Atherosclerosis Society position paper: global recommendations for the management of dyslipidemia: executive summary, Atherosclerosis. 2014: 232(2):410-413. Performed By: #### 3 016-3, 07153-1, ####[facility] LABCLIA [id number] [place] [address] [place] Cholesterol in VLDL [Mass/Vol] 17 mg/dL Normal <30 [facility] Comment on above: Order Comment: Speci men Type: BLOOD SPECIMENOrdering Facility: [facility] Address: [address] [place] [address] Performed By: #### 3 016-3, 39174-6, ####[facility] LABCLIA [id number] [place] [address] [place] Cholesterol non HDL [Mass/Vol] 135 mg/dL High <130 [facility] Comment on above: Order Comment: Irenei men Type: BLOOD SPECIMENOrdering Facility: [facility] Address: [address] [place] [address] Result Comment: <130 mg/dL, Optimal 130-159 mg/dL, Near optimal/above optimal 160-189 mg/dL, Borderline high 190-219 mg/dL, High >219 mg/dL, Very high Secondary prevention optimal non HDL Cholesterol levels are recommended to be <100 mg/dL Performed By: #### 3 016-3, 63551-8, ####[facility] LABCLIA [id number] [place] [address] [place] Cholesterol.total/Cholest gab in HDL [Mass ratio] 3.37 {ratio} Normal <5.10 [facility] Comment on above: Order Comment: Epi men Type: BLOOD SPECIMENOrdering Facility: [facility] Address: [address] [place] [address] Performed By: #### 3 016-3, 82490-6, 22535-3 ####[facility] LABCLIA [id number] [place] [id number] [place] FASTING TIME 11 hrs Normal [facility] Comment on above: Order Comment: Speci men Type: BLOOD SPECIMENOrdering Facility: [facility] Address: [address] [place] [address] Performed By: #### 3 016-3, 35166-3, ####[facility] LABCLIA [id number] [place] [address] [place] Triglyceride [Mass/Vol] 87 mg/dL Normal <150 [facility] Comment on above: Order Comment: Speci men Type: BLOOD SPECIMENOrdering Facility: [facility] Address: [address] [place] [address] Result Comment: <150 mg/dL, Normal 150-199 mg/dL, Borderline high 200-499 mg/dL, High >499 mg/dL, Very high Performed By: #### 3 016-3, 07315-9, ####[facility] LABCLIA [id number] [place] [address] [place] TSH SerPl-aCncon 08-29-2023 TSH Qn 2.640 m[IU]/L Normal 0.270-4.20 0 [facility] Comment on above: Order Comment: Speci men Type: BLOOD SPECIMENOrdering Facility: [facility] Address: [address] [place] [address] Performed By: #### 3 016-3, 31344-5, 42080-9 ####[facility] LABCLIA [id number] [place] [address] [place] Cardiology Visit Reporton Cardiology Visit Report [facility] [address] [place] [address]. [address] [place], [place] [address] OFFICE VISIT Date of Service: 08/15/23 MR#: [id number] Acct: [id number] Name: KESHIA ROJAS Rep #: [id number] : 1950 Provider: Dr. Elton klein MD Age/Sex: 73/F [place] [facility] [place]: Signed [facility] History of Present Illness Details: Keshia Rojas is a 73-year-old who presents here today for a cardiovascular follow-up.??? She has a history of nonobstructive coronary artery disease, hypertension, peripheral vascular disease, history of DVT.??? The patient reports that she is doing fairly well from a cardiovascular standpoint in her home environment. Denies any lower extremity edema she denies any PND orthopnea. She does have some shortness of breath with ambulation. 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 The patient denies any chest pains her last evaluation was March 2019 was a negative stress pharmacologic test. Last echocardiogram March 2019 showed an EF of 65% with trivial valve disease and no evidence of diastolic dysfunction right ventricular systolic pressure was estimated at 11. The patient has a multitude of allergies and intolerances to medications. She is reporting that she has left breast swelling that she thought may be related to her spironolactone. But this is unilateral and she had a negative mammogram. Intake Vital Signs 07/03/23 15:08 08/15/23 10:54 Height 5 ft 4 in 5 ft 4 in Weight: 188 lb 2 oz 188 lb BMI 32.3 32.2 BP 130/82 H Blood Pressure Location Lt brachial Position Sitting Respiration 18 Pulse 75 Pulse Source Monitor Pulse Oximetry (%) 95 Oxygen Delivery Method room air Intake Visit Reasons: 6 M FU/SWITCHING FROM AR Motor Analyst Required: No Accompanied by: Is patient in pain?: No Allergies latex Allergy (Unknown, Verified 08/15/23 10:59) PT UNSURE OF REACTION adhesive Allergy (Verified 08/15/23 10:59) Unknown benzocaine (From Cetacaine) Allergy (Verified 08/15/23 10:59) Unknown butamben (From Cetacaine) Allergy (Verified 08/15/23 10:59) Unknown cortisone (Cortisone) Allergy (Verified 08/15/23 10:59) Unknown dipyridamole (From Aggrenox) Allergy (Verified 08/15/23 10:59) Unknown lansoprazole (From Prevacid) Allergy (Verified 08/15/23 10:59) Unknown meclizine Allergy (Verified 08/15/23 10:59) Unknown methylprednisolone acetate (From Depo-Medrol) Allergy (Verified 08/15/23 10:59) Angioedema metoprolol Allergy (Verified 08/15/23 10:59) Unknown omeprazole (From Prilosec) Allergy (Verified 08/15/23 10:59) Unknown omeprazole magnesium (From Prilosec) Allergy (Verified 08/15/23 10:59) Unknown oxybutynin chloride (From Ditropan) Allergy (Verified 08/15/23 10:59) Unknown povidone-iodine (From Betadine) Allergy (Verified 08/15/23 10:59) Unknown sulfamethoxazole (From Bactrim) Allergy (Verified 08/15/23 10:59) Unknown tegaserod (From Zelnorm) Allergy (Verified 08/15/23 10:59) Hives tegaserod hydrogen maleate (From Zelnorm) Allergy (Verified 08/15/23 10:59) Unknown tetracaine (From Cetacaine) Allergy (Verified 08/15/23 10:59) Unknown tolterodine tartrate (From Detrol) Allergy (Verified 08/15/23 10:59) Unknown trimethoprim (From Bactrim) Allergy (Verified 08/15/23 10:59) Unknown lisinopril Adverse Reaction (Intermediate, Verified 08/15/23 10:59) Angioedema adhesive tape Adverse Reaction (Verified 08/15/23 10:59) Rash codeine Adverse Reaction (Verified 08/15/23 10:59) Unknown mirabegron (From Myrbetriq) Adverse Reaction (Verified 08/15/23 10:59) Other tizanidine Adverse Reaction (Verified 08/15/23 10:59) Other vaccine adjuvant system, AS01B liposomal (From Shingrix (PF)) Adverse Reaction (Verified 08/15/23 10:59) Rash varicella-zoster virus glycoprotein E, recombinant (From Shingrix (PF)) Adverse Reaction (Verified 08/15/23 10:59) Rash Medications ???Medication ???Instructions ???Recorded ???Confirmed ???Type gabapentin 100 mg capsule 300 mg PO QHS 01/11/14 08/15/23 History diazepam 5 mg tablet 5 mg PO QHS PRN anxiety 01/13/19 08/15/23 History aspirin 81 mg tablet,delayed 81 mg PO DAILY@0800 02/09/19 08/15/23 History release multivitamin 1 tab PO DAILY 04/08/19 08/15/23 History cholecalciferol (vitamin D3) 125 125 mcg PO DAILY 10/11/19 08/15/23 History mcg (5,000 unit) capsule inhalational spacing device #1 ea 10/11/19 07/03/23 Rx (BreatheRite MDI Spacer) acetaminophen 500 mg capsule 500 mg PO Q6H PRN Pain 05/05/22 08/15/23 History levothyroxine 88 mcg tablet 88 mcg PO DAILY 07/26/22 08/15/23 History ipratropium 0.5 mg-albuterol 3 mg 3 ml inhalation Q4H PRN PRN SOB 10/02/22 08/15/23 Rx (2.5 mg base)/3 mL nebulization /OR WHEEZING #180 mL soln amlodipine 5 mg tablet 2.5 mg PO DAILY 01/31/23 08/15/23 History (more content not included)... Normal [facility] Gastroenterology Visit Repor ton 08-15-2023 Gastroenterology Visit Report [facility] [address] [place] [address] OFFICE VISIT Date of Service: 08/15/23 MR#: [id number] Acct: [id number] Name: KESHIA ROJAS Rep #: [id number] : 1950 Provider: Raul Casper DO Age/Sex: 73/F [place] [facility] [place]: Signed Intake Vital Signs 07/03/23 15:08 Height 5 ft 4 in Intake Visit Reasons: 2 WK FU Allergies latex Allergy (Unknown, Verified 08/15/23 10:59) PT UNSURE OF REACTION adhesive Allergy (Verified 08/15/23 10:59) Unknown benzocaine (From Cetacaine) Allergy (Verified 08/15/23 10:59) Unknown butamben (From Cetacaine) Allergy (Verified 08/15/23 10:59) Unknown cortisone (Cortisone) Allergy (Verified 08/15/23 10:59) Unknown dipyridamole (From Aggrenox) Allergy (Verified 08/15/23 10:59) Unknown lansoprazole (From Prevacid) Allergy (Verified 08/15/23 10:59) Unknown meclizine Allergy (Verified 08/15/23 10:59) Unknown methylprednisolone acetate (From Depo-Medrol) Allergy (Verified 08/15/23 10:59) Angioedema metoprolol Allergy (Verified 08/15/23 10:59) Unknown omeprazole (From Prilosec) Allergy (Verified 08/15/23 10:59) Unknown omeprazole magnesium (From Prilosec) Allergy (Verified 08/15/23 10:59) Unknown oxybutynin chloride (From Ditropan) Allergy (Verified 08/15/23 10:59) Unknown povidone-iodine (From Betadine) Allergy (Verified 08/15/23 10:59) Unknown sulfamethoxazole (From Bactrim) Allergy (Verified 08/15/23 10:59) Unknown tegaserod (From Zelnorm) Allergy (Verified 08/15/23 10:59) Hives tegaserod hydrogen maleate (From Zelnorm) Allergy (Verified 08/15/23 10:59) Unknown tetracaine (From Cetacaine) Allergy (Verified 08/15/23 10:59) Unknown tolterodine tartrate (From Detrol) Allergy (Verified 08/15/23 10:59) Unknown trimethoprim (From Bactrim) Allergy (Verified 08/15/23 10:59) Unknown lisinopril Adverse Reaction (Intermediate, Verified 08/15/23 10:59) Angioedema adhesive tape Adverse Reaction (Verified 08/15/23 10:59) Rash codeine Adverse Reaction (Verified 08/15/23 10:59) Unknown mirabegron (From Myrbetriq) Adverse Reaction (Verified 08/15/23 10:59) Other tizanidine Adverse Reaction (Verified 08/15/23 10:59) Other vaccine adjuvant system, AS01B liposomal (From Shingrix (PF)) Adverse Reaction (Verified 08/15/23 10:59) Rash varicella-zoster virus glycoprotein E, recombinant (From Shingrix (PF)) Adverse Reaction (Verified 08/15/23 10:59) Rash Medications ???Medication ???Instructions ???Recorded ???Confirmed ???Type gabapentin 100 mg capsule 300 mg PO QHS 01/11/14 08/15/23 History diazepam 5 mg tablet 5 mg PO QHS PRN anxiety 01/13/19 08/15/23 History aspirin 81 mg tablet,delayed 81 mg PO DAILY@0800 02/09/19 08/15/23 History release multivitamin 1 tab PO DAILY 04/08/19 08/15/23 History cholecalciferol (vitamin D3) 125 125 mcg PO DAILY 10/11/19 08/15/23 History mcg (5,000 unit) capsule inhalational spacing device #1 ea 10/11/19 07/03/23 Rx (BreatheRite MDI Spacer) acetaminophen 500 mg capsule 500 mg PO Q6H PRN Pain 05/05/22 08/15/23 History levothyroxine 88 mcg tablet 88 mcg PO DAILY 07/26/22 08/15/23 History ipratropium 0.5 mg-albuterol 3 mg 3 ml inhalation Q4H PRN PRN SOB 10/02/22 08/15/23 Rx (2.5 mg base)/3 mL nebulization /OR WHEEZING #180 mL soln amlodipine 5 mg tablet 2.5 mg PO DAILY 01/31/23 08/15/23 History cranberry fruit concentrate 250 mg 250 mg PO DAILY 01/31/23 08/15/23 History chewable tablet (Azo Cranberry) budesonide 0.5 mg/2 mL suspension 0.5 mg inhalation Q12H 04/21/23 08/15/23 History for nebulization lactulose 20 gram/30 mL oral 20 g (30 mL) PO QHS 90 days #2,700 08/15/23 08/15/23 Rx solution mL pantoprazole 40 mg tablet,delayed 40 mg PO BID 90 days #180 tabs 08/15/23 08/15/23 Rx release spironolactone 25 mg tablet 25 mg PO 1700 PRN 08/15/23 08/15/23 History PFSH Medical History Loss of hearing Wears glasses Wears partial dentures Post-menopausal Anxiety Thyroid disease Ambulates with cane Urinary incontinence Difficulty swallowing Gastric reflux Non-smoker History of echocardiogram History of stress test Seasonal allergies Hoarseness Leg cramps History of edema Shortness of breath on exertion Cardiology follow-up encounter History of cataract Ganglion cyst Atherosclerotic heart disease of [place] coronary artery without angina pectoris Cholelithiasis with chronic cholecystitis Cholecystitis Pancreatitis, gallstone Gallstones Pancreatitis Dysmetabolic syndrome X DVT (deep venous thrombosis) Barretts esophagus Hypothyroidism Fibromyalgia History of DVT (deep vein thrombosis) Essential hypertension Segmental and somatic dysfunction of pelvic region Segmental and somatic dysfunction of (more content not included)... Normal [facility] Spine Lumbar (Routine)on Spine Lumbar (Routine) [facility] Services [address] [place], [place] [address] Spine Lumbar (Routine) MR#: [id number] Acct: [id number] Name: KESHIA ROJAS Rep #: [id number] : 1950 F 73 From: Bradford Cornejo MD PCP: Dr. Paulo Scott MD Status: REG CLI Study: Spine Lumbar (Routine) Date of Exam: 07/24/23 Exam# [id number] Ordering Dr: Carlin Grover MD [id number] STUDY: MRI LUMBAR SPINE WITHOUT CONTRAST REASON FOR EXAM: Female, 73 years old. Pain TECHNIQUE: Standardized fat and water weighted pulse sequences were obtained in the sagittal and axial planes. COMPARISON: 05/23/2015, x-ray 07/03/2023 FINDINGS: T12-L1: No change in a small central disc osteophyte complex which produces mild spinal stenosis but no neural foraminal stenosis. Normal lumbar lordosis. Mild levoscoliosis centered at L1. Normal conus medullaris that terminates at the T12/L1. L1-2: Enlarging central disc protrusion which is now moderate in size produces moderate spinal stenosis but no neural foraminal stenosis. L2-3: Mild bilateral facet hypertrophy and moderate ligament flavum hypertrophy. No change in the mild bilateral disc protrusion which produces mild spinal stenosis and mild right neural foraminal stenosis. L3-4: Normal endplates. Normal disc height, hydration and morphology. Normal bilateral facet joints. Normal central canal and bilateral lateral recesses. Normal bilateral intervertebral neural foramina. L4-5: Severe bilateral facet hypertrophy and moderate ligament flavum hypertrophy. Interval development of 5 mm of anterolisthesis of L4 on L5 with a moderate broad disc protrusion produces severe spinal stenosis, moderate right neural foraminal stenosis with abutment of the right L4 nerve root and severe left neural foraminal stenosis with effacement of the left L4 nerve root. L5-S1: Status post discectomy, interbody fusion, transpedicular fixation with anatomic alignment and no spinal stenosis or neural foraminal stenosis. Normal visualized sacral ala. Normal visualized paraspinous soft tissue structures. MRI/Spine Lumbar (Routine) IMPRESSION: Worsening degenerative disc disease particularly at L4/L5 as described above. Electronically Signed: Bradford Cornejo MD at 16:51 EDT , CC: Dr. Carlin Grover MD; Dr. Paulo Soctt MD Literary Agent: Signed Normal [facility] CNOVon 07-22-2023 CNOV Office Visit (UCWSTR ) ----- KESHIA ROJAS ([id number]) 1950 F Date Time Provider Department 07/22/23 4:15 PM CLIFFORD LOZANO [facility] During your visit today, we recorded the following information about you: Temperature Pulse Respiration Blood pressure 99.2 degrees 102/minute 18/minute 144/90 Weight 87.2 kg Clifford Lozano PA 07/22/2023 5:26 PM Signed This note was created using NoteWriter. Subjective Keshia Rojas is a 73 year old female. HPI 73 year old female presents for bilateral knee pain since yesterday. Patient states that she sprained her low back a few weeks ago after trying to lift her . She states that those symptoms are improving. She is using lidocaine patches on the low back. States last night she started getting bilateral knee pain, worse on the right. Pain is worse with movement and with standing and sitting down. She does have history of arthritis and states that she does not have a meniscus in the left knee. She put a lidocaine patch on her right knee which seem to help with the symptoms, but then she called her doctor and they told her she was not supposed to do this since it was prescribed for her back. Patient has not tried anything else for her knee pain. She is on gabapentin for unrelated conditions and does take Tylenol as well. No numbness or tingling in the legs. No calf pain or swelling. No recent travel. No other complaint. 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 Charlton) Cataracts, both eyes Coronary atherosclerosis of unspecified type of vessel, [place] or graft minimal plaque on cath 08/06/2006 DVT (deep venous thrombosis) (HCC) 2010 Right leg OCTOBER 2009 NOT TREATED Dysmetabolic syndrome X Esophageal reflux Fibromyalgia better with Lyrica Floppy eyelid syndrome Hiatal hernia Large when seen on EGD 10/2010 at [facility] (Dr. 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 retrograde persistalsis of esphagus causing episode of emesis Spondylosis TMJ arthritis right Unspecified essential hypertension Unspecified hypothyroidism PAST SURGICAL HISTORY Procedure Laterality Date COLSC FLX W/RMVL OF TUMOR POLYP LESION SNARE TQ 2001,2006,2009,2010 Dr. Chavarria DILATION AND CURETTAGE DXAND/THER NONOBSTETRIC 07/24/2005 Dilation AND curettage EXC TUMOR SOFT TISS FOREARM AND/WRIST SUBQ 3+CM Right 11/04/2015 Exc. right forearm lipoma HYSTEROSCOPY, DIAGNOSTIC (SEPARATE 07/24/2005 Hysteroscopy INCISE FINGER TENDON SHEATH Right 10/26/2020 Right middle trigger finger release and excision ganglion cyst INTRO. 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 REMOVE PART, LUMBAR VERTEBRAE 01/15/2014 RETRIEV INTRAVASC FOREGN BODY 04/12/2014 FILTER REMOVAL RT HEART CATH 03/17/2006 x 2 TONSILLECTOMY AND ADENOIDECTOMY T/A (under age 12 years) ALLERGIES Adhesive, Aggrenox [Aspirin-Dipyridamole], Bactrim [Sulfamethoxazole-Trimeth oprim], Betadine [Povidone-Iodine], Cetacaine [Ungohila-Kclioijjtd-Rqmb ocaine], Cigarette Smoke, Codeine, Cortisone, Depo-Medrol [Methylprednisolone], Detrol [Tolterodine Tartrate], Ditropan [Oxybutynin Chloride], Latex, Lisinopril, Meclizine, Metoprolol, Myrbetriq [Mirabegron], Prevacid [Lansoprazole], Prilosec [Omeprazole Magnesium], Tape [Adhesive Tape (Rosins)], Tizanidine, and Zelnorm [Tegaserod Hydrogen Maleate] MEDICATIONS cyclobenzaprine (FLEXERIL) 5 mg tablet Take 1 tablet by mouth three times a day as needed for muscle spasm. lidocaine (LIDODERM) 5 % Apply 1 Patch as directed once daily. Remove old patch after wearing for 12 hours and then 12 hours later apply new patch for 12 hours on the site and 12 hours off the site. Location: right lower back. ipratropium-albuterol (DUONEB) 0.5 mg-3 mg(2.5 mg base)/3 mL nebu Inhale 3 mL as instructed every 6 hours. Unit dose pack. dr Park pulmonology. diazePAM (VALIUM) 5 mg tablet Take 1 tablet by mouth at bedtime as needed (vertigo or anxiety) for up to 90 days. Do not start before April 27, 2023. gabapentin (NEURONTIN) 100 mg capsule Take 3 capsules by mouth daily at bedtime for 180 days. Do not start before April 06, 2023. spironolactone (ALDACTONE) 25 mg tablet Take 1 tablet by mouth once daily. amLODIPine (NORVASC) 5 mg tablet Take 1 tablet by mouth once daily. levothyroxine (SYNTHROID) 88 mcg tablet Take 1 tablet by mouth once daily. (more content not included)... Normal [facility] XR KNEE 4V AP/PA/LAT/MERCH B ILon 07-22-2023 XR KNEE 4V AP/PA/LAT/MERCH LU * * *Final Report* * * DATE OF EXAM: Jul 22 2023 5:01PM WOX [id number] - XR KNEE 4V AP/PA/LAT/MERCH LU / PROCEDURE REASON: multiple diagnoses * * * * Physician Interpretation * * * * XR KNEE 4V AP/PA/LAT/MERCH LU INDICATION: Acute pain of both knees Acute pain of both knees COMPARISON: Radiograph of the kidneys 01/12/2019 and prior TECHNIQUE: Bilateral knee radiograph; 5 views RESULT: No acute fracture, dislocation or suspicious osseous lesion. Mildly narrowing of the joint spaces, small marginal osteophytes reflecting mild tricompartmental degenerative changes. No joint effusion. IMPRESSION: No acute osseous abnormality in the knees, mild degenerative changes. Literary Agent[facility] Transcribe Date/Time: Jul 22 2023 5:11P Dictated by : DAVID GONZALEZ MD This examination was interpreted and the report reviewed and electronically signed by: DAVID GONZALEZ MD on Jul 22 2023 5:14PM EST [id number] Normal [facility] XR Knee - bilateral 4 Viewso n 07-22-2023 IMPRESSION: No acute osseous abnormality in the knees, mild degenerative changes. Literary Agent: [facility] Transcribe Date/Time: Jul 22 2023 5:11P Dictated by : DAVID GONZALEZ MD This examination was interpreted and the report reviewed and electronically signed by: DAVID GONZALEZ MD on Jul 22 2023 5:14PM EST DIVISION OF RADIOLOGY * * *Final Report* * * DATE OF EXAM: Jul 22 2023 5:01PM WOX [id number] - XR KNEE 4V AP/PA/LAT/MERCH LU / PROCEDURE REASON: multiple diagnoses * * * * Physician Interpretation * * * * XR KNEE 4V AP/PA/LAT/MERCH LU INDICATION: Acute pain of both knees Acute pain of both knees COMPARISON: Radiograph of the kidneys 01/12/2019 and prior TECHNIQUE: Bilateral knee radiograph; 5 views RESULT: No acute fracture, dislocation or suspicious osseous lesion. Mildly narrowing of the joint spaces, small marginal osteophytes reflecting mild tricompartmental degenerative changes. No joint effusion. DIVISION OF RADIOLOGY Provider, Timbo Lopez - 07/22/2023 * * *Final Report* * * DATE OF EXAM: Jul 22 2023 5:01PM WOX [id number] - XR KNEE 4V AP/PA/LAT/MERCH LU / PROCEDURE REASON: multiple diagnoses * * * * Physician Interpretation * * * * XR KNEE 4V AP/PA/LAT/MERCH LU INDICATION: Acute pain of both knees Acute pain of both knees COMPARISON: Radiograph of the kidneys 01/12/2019 and prior TECHNIQUE: Bilateral knee radiograph; 5 views RESULT: No acute fracture, dislocation or suspicious osseous lesion. Mildly narrowing of the joint spaces, small marginal osteophytes reflecting mild tricompartmental degenerative changes. No joint effusion. IMPRESSION IMPRESSION: No acute osseous abnormality in the knees, mild degenerative changes. Literary Agent: [facility] Transcribe Date/Time: Jul 22 2023 5:11P Dictated by : DAVID GONZALEZ MD This examination was interpreted and the report reviewed and electronically signed by: DAVID GONZALEZ MD on Jul 22 2023 5:14PM [facility] Radiology Study observation (narrative) Elisa tony [facility] XR Knee - bilateral 4 ViewsO rdered By: Timbo Provider on 07-22-2023 [facility] CNOVon 07-04-2023 CNOV Office Visit (INTMWS ) ----- KESHIA ROJAS ([id number]) 1950 F Date Time Provider Department 07/04/23 10:40 AM NORMAN GARCIA INTMWS During your visit today, we recorded the following information about you: Temperature Pulse Respiration Blood pressure 98.9 degrees 88/minute 14/minute 136/70 Weight Height 85.3 kg 1.626 m Norman Garcia APRN.RESIDENTIAL DIRECTOR 07/04/2023 12:06 PM Signed SUBJECTIVE Keshia Rojas is a 73 year old female here today for a check up on her medical problems. Chief Complaint Patient presents with: ED Follow-up: back strain from trying to left HPI Keshia Rojas is a 73 year old female. She is an established patient. Here today for an ER follow up. She was seen in ER recently after trying to help lift her from a fall. She was seen in the [facility] ER 06/18. She is using a walker. Xr of the lumbar spine showed anterolisthesis of L4 on L5 with moderate central canal and bilateral neural foraminal stenosis. Given percocet by ER, using this sparingly. Going to see Dr. Paz for injections for the back pain. No new issues with numbness, tingling, weakness down the legs. No loss or bowel or bladder control, no saddle paresthesia. Her medications were reviewed today and her list is now up to date. Medications Current Outpatient Medications Medication Sig methylPREDNISolone (MEDROL, JEYSON,) 4 mg Dose-Pack Follow dosing instructions, take with food. cyclobenzaprine (FLEXERIL) 5 mg tablet Take 1 tablet by mouth three times a day as needed for muscle spasm. lidocaine (LIDODERM) 5 % Apply 1 Patch as directed once daily. Remove old patch after wearing for 12 hours and then 12 hours later apply new patch for 12 hours on the site and 12 hours off the site. Location: right lower back. ipratropium-albuterol (DUONEB) 0.5 mg-3 mg(2.5 mg base)/3 mL nebu Inhale 3 mL as instructed every 6 hours. Unit dose pack. dr Park pulmonology. diazePAM (VALIUM) 5 mg tablet Take 1 tablet by mouth at bedtime as needed (vertigo or anxiety) for up to 90 days. Do not start before April 27, 2023. gabapentin (NEURONTIN) 100 mg capsule Take 3 capsules by mouth daily at bedtime for 180 days. Do not start before April 06, 2023. spironolactone (ALDACTONE) 25 mg tablet Take 1 tablet by mouth once daily. amLODIPine (NORVASC) 5 mg tablet Take 1 [...] medications for this visit. ALLERGIES Allergen Reactions Adhesive Rash ECG patch [...] mandibular pain, lymphadenopathy, possible angio edema per [facility] ER note 04/24/2022 Meclizine Swelling URINARY RETENTION,FACE FELT FUNNY Metoprolol GI Upset headache.itching.hives. Myrbetriq [Mirabegr* Other: See Comments elevated BP Prevacid [Lansopraz* GI Upset GAS,BURPING HEADACHE Prilosec [Omeprazol* Diarrhea Tape [Adhesive Tape* Rash Paper tape Tizanidine Other: See Comments increased pain Zelnorm [Tegaserod * Hives ACTIVE PROBLEM LIST 1) Laparotomy 2) Joann gastroplasty 3) W (more content not included)... Normal [facility] CNPNon 07-04-2023 CNPN Telephone (INTMWS) ----- KESHIA ROJAS ([id number]) 1950 F Date Time Provider Department 07/04/23 PAULO SCOTT INTMWS During your visit today, we recorded the following information about you: Ama Vang LPN 07/04/2023 12:11 PM Signed Electronic PA rec'd and completed for lidocaine 5% patches. Jeanna Hoover MA 07/07/2023 8:44 AM Signed Fax received for PA approval Jeanna Hoover MA Allergies As of Date: 07/04/2023 Noted Allergy Reaction ADHESIVE 02/12/2023 2 - Rash Comments: ECG patch made skin red and raw; needs hypoallergenic patches for ECG and other testing needing patches AGGRENOX (ASPIRIN-DIPYRIDAMOLE) 05/27/2011 14 - Other: See Comments Comments: Headache BACTRIM (SULFAMETHOXAZOLE-TRIMETH *03/20/2006 Comments: dizzy, redness, face flushed BETADINE (POVIDONE-IODINE) 11/04/2006 2 - Rash CETACAINE ([id number]*0 09/11/2012 14 - Other: See Comments Comments: excessive mucous production CIGARETTE SMOKE 02/12/2023 12 - Shortness of Breath Comments: Hard to breathe CODEINE 03/07/2006 5 - Intolerance CORTISONE 12 - Shortness of Breath Comments: injection was given and swelled and had trouble breathing DEPO-MEDROL (METHYLPREDNISOLONE) 02/12/2023 14 - Other: See Comments Comments: FACE SWELLED AFTER CORTISONE SHOT IN KNEE DETROL (TOLTERODINE TARTRATE) 03/07/2006 5 - Intolerance Comments: HEAD ACHE ,DRY MOUTH DITROPAN (OXYBUTYNIN CHLORIDE) 03/07/2006 5 - Intolerance Comments: DIZZY,SUN SENSITIVE LATEX 11/03/2009 2 - Rash LISINOPRIL 04/26/2022 5 - Intolerance Comments: mandibular pain, lymphadenopathy, possible angio edema per [facility] ER note 04/24/2022 MECLIZINE 03/07/2006 7 - Swelling Comments: URINARY RETENTION,FACE FELT FUNNY METOPROLOL 04/24/2006 8 - GI Upset Comments: headache.itching.hives. MYRBETRIQ (MIRABEGRON) 12/26/2014 14 - Other: See Comments Comments: elevated BP PREVACID (LANSOPRAZOLE) 03/07/2006 8 - GI Upset Comments: GAS,BURPING HEADACHE PRILOSEC (OMEPRAZOLE MAGNESIUM) 6 - Diarrhea TAPE (ADHESIVE TAPE (ROSINS)) 02/12/2023 2 - Rash Comments: Paper tape TIZANIDINE 03/24/2014 14 - Other: See Comments Comments: increased pain ZELNORM (TEGASEROD HYDROGEN RACHELL*03/07/2006 4 - Hives Date Reviewed: 07/04/2023 Reviewed by: Norman Garcia APRN.RESIDENTIAL DIRECTOR - Fully Assessed Reason for Visit: Insurance Authorization [[id number]] Prescriptions as of 07/07/2023 - methylPREDNISolone (MEDROL, JEYSON,) 4 mg Dose-Pack Follow dosing instructions, take with food. - cyclobenzaprine (FLEXERIL) 5 mg tablet Take 1 tablet by mouth three times a day as needed for muscle spasm. - lidocaine (LIDODERM) 5 % Apply 1 Patch as directed once daily. Remove old patch after wearing for 12 hours and then 12 hours later apply new patch for 12 hours on the site and 12 hours off the site. Location: right lower back. - ipratropium-albuterol (DUONEB) 0.5 mg-3 mg(2.5 mg base)/3 mL nebu Inhale 3 mL as instructed every 6 hours. Unit dose pack. dr [place] pulmonology. - diazePAM (VALIUM) 5 mg tablet Take 1 tablet by mouth at bedtime as needed (vertigo or anxiety) for up to 90 days. Do not start before April 27, 2023. - gabapentin (NEURONTIN) 100 mg capsule Take 3 capsules by mouth daily at bedtime for 180 days. Do not start before April 06, 2023. - spironolactone (ALDACTONE) 25 mg tablet Take 1 tablet by mouth once daily. - amLODIPine (NORVASC) 5 mg tablet Take 1 tablet by mouth once daily. - levothyroxine (SYNTHROID) 88 mcg tablet Take 1 tablet by mouth once daily. Take on empty stomach. For Thyroid - Artificial Tear, Hypromellose, (SYSTANE GEL) 0.3 % gel 1 Drop daily at bedtime. - aspirin, enteric coated (ASPIRIN, ENTERIC COATED) 81 mg EC tablet Take 81 mg by mouth. - budesonide (PULMICORT) 0.5 mg/2 mL nebulizer solution Use 0.5 mg via nebulizer once daily. - cranberry fruit concentrate (AZO CRANBERRY) 250 mg chew Take by mouth. - cholecalciferol, vitamin D3, 10 mcg (400 [...] TO SWALLOW. Problem List As Of Date 07/04/2023 Noted Resolved Essential hypertension [I10] Acute, but ill-defined, cerebrovascular disease*09/28/2005 12/28/2016 Mixed hyperli (more content not included)... Normal [facility] L/S Spine Min 4 Viewson 06-15 L/S Spine Min 4 Views [facility] Radiology [address] [place] [address] L/S Spine Min 4 Views MR#: [id number] Acct: [id number] Name: KESHIA ROJAS Rep #: [id number] : 1950 F 73 From: Bradford Cornejo MD PCP: Dr. Paulo Scott MD Status: DEP AMB Study: L/S Spine Min 4 Views Date of Exam: 07/03/23 Exam# [id number] Ordering Dr: Carlin Grover MD [id number] STUDY: X-RAY - LUMBAR SPINE REASON FOR EXAM: Female, 73 years old. lbp -- Please do upright AP lateral flexion-extension TECHNIQUE: 4 view(s) of the lumbar spine were obtained. COMPARISON: None FINDINGS: Normal lumbar lordosis. Moderate dextroscoliosis centered at L4/L5. Status post discectomy, interbody fusion, transpedicular fixation at L5/S1 with anatomic alignment. 5 mm of anterolisthesis of L4 on L5. This is unchanged on the flexion and extension views. Normal vertebral bodies and endplates. Normal disc space heights. The soft tissue structures are unremarkable. RAD/L/S Spine Min 4 Views IMPRESSION: 1. Status post discectomy, interbody fusion, posterior fixation at L5/S1 with anatomic alignment. 2. Moderate dextroscoliosis with 5 mm of anterolisthesis of L4 on L5. Electronically Signed: Bradford Cornejo MD at 23:53 EDT , CC: Dr. Carlin Grover MD; Dr. Paulo Scott MD Literary Agent: Signed Normal [facility] Orthopedic Visit Reporton Orthopedic Visit Report [facility] [address] [place] [address] OFFICE VISIT Date of Service: 07/03/23 MR#: [id number] Acct: [id number] Name: KESHIA ROJAS Rep #: [id number] : 1950 Provider: Dr. Carlin Grover MD Age/Sex: 73/F [place] [facility] [place] Status: Signed Intake Vital Signs 06/19/23 12:33 07/03/23 15:08 Height 5 ft 4 in 5 ft 4 in Weight: 188 lb 2 oz BMI 32.3 Intake Visit Reasons: LUMBAR SPINE Chief Complaint: ER FOLLOW-UP - LUMBAR SPINE Accompanied by: Self Is patient in pain?: Yes Pain scale (1-10): 5 Allergies latex Allergy (Unknown, Verified 07/03/23 15:18) PT UNSURE OF REACTION adhesive Allergy (Verified 07/03/23 15:18) Unknown benzocaine [From Cetacaine] Allergy (Verified 07/03/23 15:18) Unknown butamben [From Cetacaine] Allergy (Verified 07/03/23 15:18) Unknown cortisone [Cortisone] Allergy (Verified 07/03/23 15:18) Unknown dipyridamole [From Aggrenox] Allergy (Verified 07/03/23 15:18) Unknown lansoprazole [From Prevacid] Allergy (Verified 07/03/23 15:18) Unknown meclizine Allergy (Verified 07/03/23 15:18) Unknown methylprednisolone acetate [From Depo-Medrol] Allergy (Verified 07/03/23 15:18) Angioedema metoprolol Allergy (Verified 07/03/23 15:18) Unknown omeprazole [From Prilosec] Allergy (Verified 07/03/23 15:18) Unknown omeprazole magnesium [From Prilosec] Allergy (Verified 07/03/23 15:18) Unknown oxybutynin chloride [From Ditropan] Allergy (Verified 07/03/23 15:18) Unknown povidone-iodine [From Betadine] Allergy (Verified 07/03/23 15:18) Unknown sulfamethoxazole [From Bactrim] Allergy (Verified 07/03/23 15:18) Unknown tegaserod [From Zelnorm] Allergy (Verified 07/03/23 15:18) Hives tegaserod hydrogen maleate [From Zelnorm] Allergy (Verified 07/03/23 15:18) Unknown tetracaine [From Cetacaine] Allergy (Verified 07/03/23 15:18) Unknown tolterodine tartrate [From Detrol] Allergy (Verified 07/03/23 15:18) Unknown trimethoprim [From Bactrim] Allergy (Verified 07/03/23 15:18) Unknown lisinopril Adverse Reaction (Intermediate, Verified 07/03/23 15:18) Angioedema adhesive tape Adverse Reaction (Verified 07/03/23 15:18) Rash codeine Adverse Reaction (Verified 07/03/23 15:18) Unknown mirabegron [From Myrbetriq] Adverse Reaction (Verified 07/03/23 15:18) Other tizanidine Adverse Reaction (Verified 07/03/23 15:18) Other vaccine adjuvant system, AS01B liposomal [From Shingrix (PF)] Adverse Reaction (Verified 07/03/23 15:18) Rash varicella-zoster virus glycoprotein E, recombinant [From Shingrix (PF)] Adverse Reaction (Verified 07/03/23 15:18) Rash Medications gabapentin 100 mg capsule 300 mg PO QHS 01/11/14 [History Confirmed 07/03/23] diazepam 5 mg tablet 5 mg PO QHS PRN anxiety 01/13/19 [History Confirmed 07/03/23] aspirin 81 mg tablet,delayed release 81 mg PO DAILY@0800 02/09/19 [History Confirmed 07/03/23] multivitamin 1 tab PO DAILY 04/08/19 [History Confirmed 07/03/23] white petrolatum-mineral oil 94 %-3 % eye ointment (Systane Nighttime) 1 applic ophthalmic (eye) QHS cataracts 04/08/19 [History Confirmed 07/03/23] cholecalciferol (vitamin D3) 125 mcg (5,000 unit) capsule 125 mcg PO DAILY 10/11/19 [History Confirmed 07/03/23] inhalational spacing device (BreatheRite MDI Spacer) #1 ea 10/11/19 [Rx Confirmed 07/03/23] acetaminophen 500 mg capsule 500 mg PO Q6H PRN Pain 05/05/22 [History Confirmed 07/03/23] levothyroxine 88 mcg tablet 88 mcg PO DAILY 07/26/22 [History Confirmed 07/03/23] ipratropium 0.5 mg-albuterol 3 mg (2.5 mg base)/3 mL nebulization soln 3 ml inhalation Q4H PRN PRN SOB /OR WHEEZING #180 mL 10/02/22 [Rx Confirmed 07/03/23] amlodipine 5 mg tablet 2.5 mg PO DAILY 01/31/23 [History Confirmed 07/03/23] cranberry fruit concentrate 250 mg chewable tablet (Azo Cranberry) 250 mg PO DAILY 01/31/23 [History Confirmed 07/03/23] spironolactone 25 mg tablet 25 mg PO 1700 01/31/23 [History Confirmed 07/03/23] budesonide 0.5 mg/2 mL suspension for nebulization 0.5 mg inhalation Q12H 04/21/23 [History Confirmed 07/03/23] hydrocodone-acetaminophen 5-325mg 5mg-325mg 1 tab PO Q6H PRN PRN Pain 3 days #10 TABLETS 06/19/23 [Rx Confirmed 07/03/23] PFSH Medical History Ambulates with cane Anemia Anxiety Arthritis Atherosclerotic heart disease of [place] coronary artery without angina pectoris Barretts esophagus Cardiology follow-up encounter Cataracts, bilateral Cholecystitis Cholelithiasis with chronic cholecystitis DDD (degenerative disc disease), lumbar Difficulty swallowing DVT (deep venous thrombosis) Dysmetabolic syndrome X Environmental allergies Essential hypertension Fibromyalgia Gallstones Ganglion cyst Gastric reflux GERD (gastroesophageal reflux disease) History of atria (more content not included)... Normal [facility] TOX SCREEN ROUT URon 023 Amphetamines Confirm (U) [Mass/Vol] Negative Negative [facility] Barbiturates Urine Negative Negative [facility] Benzodiazepines Urine Positive Abnormal Negative [facility] Cannabinoids Screen Ql (U) Negative Negative [facility] Cocaine Ql (U) Negative Negative [facility] Ethanol (U) [Mass/Vol] <11 mg/dL Cl [facility] Opiates Screen Ql (U) Negative Negative [facility] oxyCODONE cutoff Screen (U) [Mass/Vol] Negative Negative [facility] Phencyclidine Ql (U) Negative Negative [facility] CBC W Auto Differential pane l (Bld)on 02-19-2023 Basophils (Bld) [#/Vol] 0.12 10*3/uL High <0.11 k/uL [facility] Basophils/100 WBC (Bld) 1.3 % C [facility] Differential cell count method Nom (Bld) Auto [facility] Eosinophils (Bld) [#/Vol] 0.73 10*3/uL High <0.46 k/ uL [facility] Eosinophils/100 WBC (Bld) 8.0 % [facility] Erythrocyte distribution width (RBC) [Ratio] 13.5 % 11.5 - 15.0 % [facility] Hematocrit (Bld) [Volume fraction] 42.7 % 36.0 - 46.0 % [facility] Hemoglobin (Bld) [Mass/Vol] 14.0 g/dL 11.5 - 15.5 g/dL [facility] Immature granulocytes (Bld) [#/Vol] 0.03 10*3/uL <0.10 k/uL [facility] Immature granulocytes/100 WBC (Bld) 0.3 % [facility] Lymphocytes (Bld) [#/Vol] 2.95 10*3/uL 1. 00 - 4.00 k/uL [facility] Lymphocytes/100 WBC (Bld) 32.3 % [facility] MCH (RBC) [Entitic mass] 31.1 pg 26. 0 - 34.0 pg [facility] MCHC (RBC) [Mass/Vol] 32.8 g/dL 30.5 - 36.0 g/dL [facility] MCV (RBC) [Entitic vol] 94.9 fL 80.0 - 100.0 fL [facility] Monocytes (Bld) [#/Vol] 0.93 10*3/uL High <0.87 k/uL [facility] Monocytes/100 WBC (Bld) 10.2 % [facility] Neutrophils (Bld) [#/Vol] 4.36 10*3/uL 1. 45 - 7.50 k/uL [facility] Neutrophils/100 WBC (Bld) 47.9 % [facility] Nucleated RBC (Bld) [#/Vol] <0.01 k/uL [facility] Nucleated RBC/100 WBC (Bld) [Ratio] 0.0 /100 WBC [facility] Platelet mean volume (Bld) [Entitic vol] 9.8 fL 9.0 - 12.7 fL [facility] Platelets (Bld) [#/Vol] 370 10*3/uL 150 - 400 k/uL [facility] RBC (Bld) [#/Vol] 4.50 10*6/uL 3.90 - 5.20 m/uL [facility] WBC (Bld) [#/Vol] 9.12 10*3/uL 3.70 - 11.00 k/uL [facility] Comprehensive metabolic 2000 panelon 02-19-2023 Albumin [Mass/Vol] 4.1 g/dL 3.9 - 4.9 g/dL [facility] ALP [Catalytic activity/Vol] 60 U/L 34 - 123 U/L [facility] ALT [Catalytic activity/Vol] 24 U/L 7 - 38 U/L [facility] Anion gap [Moles/Vol] 12 mmol/L 9 - 18 mmol/L [facility] AST [Catalytic activity/Vol] 21 U/L 13 - 35 U/L [facility] Bilirubin [Mass/Vol] 0.5 mg/dL 0.2 - 1 .3 mg/dL [facility] Calcium [Mass/Vol] 9.7 mg/dL 8.5 - 10. 2 mg/dL [facility] Chloride [Moles/Vol] 103 mmol/L 97 - 10 5 mmol/L [facility] CO2 [Moles/Vol] 27 mmol/L 22 - 30 mmol/L [facility] Creatinine [Mass/Vol] 0.81 mg/dL 0.58 - 0.96 mg/dL [facility] Estimated Glomerular Filtration Rate 77 mL/min/1.73m >=60 mL/min/1.7 3m [facility] Glucose [Mass/Vol] 119 mg/dL High 74 - 99 mg/dL [facility] Potassium [Moles/Vol] 4.6 mmol/L 3.7 - 5.1 mmol/L [facility] Protein [Mass/Vol] 7.2 g/dL 6.3 - 8.0 g/dL [facility] Sodium [Moles/Vol] 142 mmol/L 136 - 144 mmol/L [facility] Urea nitrogen [Mass/Vol] 19 mg/dL 7 - 21 mg/dL [facility] HbA1c (Bld)on 02-19-2023 Average glucose Estimated from glycated hemoglobin (Bld) [Mass/Vol] 128 mg/dL [facility] HbA1c (Bld) [Mass fraction] 6.1 % High 4.3 - 5.6 % [facility] Lipid 1996 panelon 3 Cholesterol [Mass/Vol] 179 mg/dL <200 mg/dL [facility] Cholesterol in HDL [Mass/Vol] 54 mg/dL >39 mg/dL [facility] Cholesterol in LDL [Mass/Vol] 110 mg/dL High <100 mg/dL [facility] Cholesterol in LDL/Cholesterol in HDL [Mass ratio] 2.04 {ratio} <2.54 [facility] Cholesterol in VLDL [Mass/Vol] 15 mg/dL <30 mg/dL [facility] Cholesterol non HDL [Mass/Vol] 125 mg/dL <130 mg/dL [facility] Cholesterol.total/Cholest gab in HDL [Mass ratio] 3.31 {ratio} <5.10 [facility] Fasting Time 10 hrs [facility] Triglyceride [Mass/Vol] 74 mg/dL <150 mg/dL C [facility] TSH BLDon 02-19-2023 TSH Qn 3.670 m[IU]/L 0.270 - 4.200 mIU/L [facility] No Panel InformationOrdered By: Raul Casper on 10-17-2022 Stool Calprotectin 77 ug/g 0-120 [facility] Comment on above: Concentration Interp retation Follow-Up< 5 - 50 ug/g Normal None>50 -120 ug/g Borderline Re-evaluate in 4-6 weeks >120 ug/g Abnormal Repeat as clinically indicatedPerformed at: - [facility] [address] [id number] Director: Kathrin Rivera MD, Phone: [phone] Stool Pancreatic Elastase 334 >200 [facility] Comment on above: Result Units: ug [address] st./g Severe Pancreatic Insufficiency: <100 Moderate Pancreatic Insufficiency: 100 - 200 Normal: >200Performed at: [facility] [id number] Director: Kathrin Rivera MD, Phone: [phone] Stool lactoferrin detection by immunoassayOrdered By: Raul Csaper on 10-17-2022 Lactoferrin IA Ql (Stl) [facility] 24 hour urine coproporphyrin 1 measurement (mass/volume)Ordered By: Raul Casper on 10-15-2022 Coproporphyrin 1 (24H U) [Mass/Vol] 21 ug/24 hr 0-24 [facility] 24 hour urine coproporphyrin 3 measurement (mass/volume)Ordered By: Raul Casper on 10-15-2022 Coproporphyrin 3 (24H U) [Mass/Vol] 81 ug/24 hr 0-74 [facility] Comment on above: Performed at: [address] [id number] Director: Kathrin Rivera MD, Phone: [phone] 24 hour urine heptacarboxylp orphyrin measurement (mass/time)Ordered By: Raul Casper on 10-15-2022 Heptacarboxylporphyrin (24H U) [Mass/Time] <3 ug/24 hr 0-4 [facility] 24 hour urine hexacarboxylpo rphyrin measurement (mass/time)Ordered By: Raul Casper on 10-15-2022 Hexacarboxylporphyrin (24H U) [Mass/Time] <3 ug/24 hr 0-1 [facility] 24 hour urine pentacarboxylp orphyrins measurement (mass/time)Ordered By: Raul Casper on 10-15-2022 Pentacarboxylporphyrins (24H U) [Mass/Time] <3 ug/24 hr 0-4 [facility] 24 hour urine uroporphyrin m easurement (mass/time)Ordered By: Raul Casper on 10-15-2022 Uroporphyrin (24H U) [Mass/Time] 9 ug/24 hr 0-24 [facility] Urine coproporphyrin 1 measu rement (mass/volume)Ordered By: Raul Casper on 10-15-2022 Coproporphyrin 1 (U) [Mass/Vol] 7 ug/L Undefined [facility] Urine coproporphyrin 3 measu rement (mass/volume)Ordered By: Raul Casper on 10-15-2022 Coproporphyrin 3 (U) [Mass/Vol] 27 ug/L Undefined [facility] Urine heptacarboxylporphyrin measurement (mass/volume)Ordered By: Rauljaden Casper on 10-15-2022 Heptacarboxylporphyrin (U) [Mass/Vol] <1 ug/L Undefined [facility] Urine hexacarboxylporphyrin measurement (mass/volume)Ordered By: Rauljaden Casper on 10-15-2022 Hexacarboxylporphyrin (U) [Mass/Vol] <1 ug/L Undefined [facility] Urine pentacarboxylporphyrin s measurement (mass/volume)Ordered By: Aruljaden Casper on 10-15-2022 Pentacarboxylporphyrins (U) [Mass/Vol] <1 ug/L Undefined [facility] Urine uroporphyrin measureme nt (mass/volume)Ordered By: Rauljaden Casper on 10-15-2022 Uroporphyrin (U) [Mass/Vol] 3 ug/L Undefined [facility] Absolute lymphocyte countOrd ered By: Raul Pennie on 10-02-2022 Lymphocytes Auto (Unsp spec) [#/Vol] 2.50 10*3/uL 0.83-4.51 [facility] Albumin Elph [Mass/Vol]Order ed By: Raul Pennie on 10-02-2022 Albumin [Mass/Vol] 3.6 g/dL 2.9-4.4 [facility] Atypical perinuclear antineu trophil cytoplasmic antibodies measurementOrdered By: Rauljaden Casper on 10-02-2022 Neutrophil cytoplasmic Ab.perinuclear.atypical IF (S) [Titer] <1:20 titer Neg:<1:20 [facility] Comment on above: Serum is slightly li pemic.The atypical pANCA pattern has been observed in asignificant percentage of patients with ulcerative colitis,primary sclerosing cholangitis and autoimmune hepatitis.Performed at: [address] [id number] Director: Marcin Álvarez PhD, Phone: [phone] at: [address] [id number] Director: Kathrin Rivera MD, Phone: [phone] Basophil percentageOrdered B y: Raul Friend on 10-02-2022 Basophil percentage < 0.2 AI 0.0-0.9 [facility] Basophils/100 WBC (Bld) 0.8 % 0-1 [facility] Bilirubin [Mass/Vol] 0.40 mg/dL 0.20-1.00 [facility] Comment on above: For patients on eltr ombopag therapy, use of Dimension [place] TBIL is not recommended. Chloride [Moles/Vol] 105 mmol/L 98-107 [facility] Eosinophils/100 WBC (Bld) 5.9 % 0-5 [facility] Glucose [Mass/Vol] 136 mg/dL 74-106 [facility] Comment on above: Fasting Glucose resu lt greater than or equal to 126 mg/dL suggests DIABETES MELLITUS per A.D.A. criteria. LDH [Catalytic activity/Vol] 202 U/L 84-246 [facility] Neutrophils (Bld) [#/Vol] 6.8 10*3/uL 2.0-7.7 [facility] Neutrophils/100 WBC (Bld) 62.4 % 47-70 [facility] Potassium [Moles/Vol] 3.9 mmol/L 3.5-5.1 [facility] Protein [Mass/Vol] 7.8 g/dL 6.4-8.2 [facility] Sodium [Moles/Vol] 138 mmol/L 136-145 [facility] WBC (Bld) [#/Vol] 11.0 10*3/uL 4.4-11.0 [facility] Blood erythrocytes count (nu mber/volume)Ordered By: Raul Friend on 10-02-2022 RBC (Bld) [#/Vol] 4.83 10*6/uL 4.2-5.4 [facility] Blood hemoglobin measurement (mass/volume)Ordered By: Raul Casper on 10-02-2022 Hemoglobin (Bld) [Mass/Vol] 14.7 g/dL 12.0-15.0 [facility] Blood lymphocytes/100 leukoc ytesOrdered By: Raul Casper on 10-02-2022 Lymphocytes/100 WBC (Bld) 22.8 % 19-41 [facility] Blood monocytes/100 leukocyt esOrdered By: Raul Casper on 10-02-2022 Monocytes/100 WBC (Bld) 7.7 % 0-10 [facility] Blood platelet mean volumeOr dered By: Raul Casper on 10-02-2022 Platelet mean volume (Bld) [Entitic vol] 10.0 fL 6.2-12.0 [facility] Determination of erythrocyte mean corpuscular volume (MCV)Ordered By: Raul Casper on 10-02-2022 MCV (RBC) [Entitic vol] 95.4 fL 81-99 [facility] Erythrocyte sedimentation ra teOrdered By: Raul Casper on 10-02-2022 ESR (Bld) [Velocity] 17 mm/h 0-30 [facility] Hematocrit Auto (Bld) [Volum e fraction]Ordered By: Raul Casper on 10-02-2022 Hematocrit (Bld) [Volume fraction] 46.1 % 37-47 [facility] Interpretation of serum or p lasma protein pattern by immunofixation (narrative resultOrdered By: Raul Casper on 10-02-2022 Protein Fractions Immunofixation Emil [Interp] See comment [facility] Comment on above: Result: Not Observed Laboratory - Chemistry and C hemistry - challengeOrdered By: Raul Casper on 10-02-2022 ALP [Catalytic activity/Vol] 76 U/L 45-117 [facility] ALT [Catalytic activity/Vol] 32 U/L 13-56 [facility] CO2 [Moles/Vol] 27.0 mmol/L 21.0-32.0 [facility] Urea nitrogen/Creatinine [Mass ratio] 18.1 mg/mg 10-20 [facility] Laboratory - Hematology and Cell countsOrdered By: Raul Casper on 10-02-2022 Erythrocyte distribution width (RBC) [Entitic vol] 47.1 fL 35.1-43.9 [facility] Erythrocyte distribution width (RBC) [Ratio] 13.4 % 11.6-14.6 [facility] Immature granulocytes/100 WBC (Bld) 0.400 % 0.0-0.9 [facility] Comment on above: IG% - Immature Granu locytes (promyelocytes, myelocytes and metamyelocytes) > 1% indicates that a LEFT SHIFT is Present. MCH (RBC) [Entitic mass] 30.4 pg 27.0-32.0 [facility] Nucleated RBC/100 WBC (Bld) [Ratio] 0 % 0-5 [facility] MCHC Auto (RBC) [Mass/Vol]Or dered By: Raul Casper on 10-02-2022 MCHC (RBC) [Mass/Vol] 31.9 g/dL 32-36 [facility] No Panel InformationOrdered By: Raul Casper on 10-02-2022 Addendum Document Comment . [facility] Comment on above: Protein electrophore sis scan will follow via computer,mail, or brim curler delivery. Centromere B Antibody <0.2 AI 0.0-0.9 [facility] Endomysial IgA Antibody Negative Negative [facility] Estimated GFR (MDRD) Amer 75 mL/min >60 [facility] Comment on above: GFR Calc Estimated GFR (MDRD) Non-Af Amer 62 mL/min >60 [facility] Comment on above: Non- GFR Calc Immunoglobulin E 171 IU/mL 6-495 [facility] Miscellaneous Test See comment [facility] Comment on above: TEST RESULT LIMITSIB D Expanded Panel [place] 7 units 0-50 Negative <45 Equivocal 45 - 50 Positive >50 ACCA 42 units 0-90 Negative <80 Equivocal 80 - 90 Positive >90 ALCA 6 units 0-60 Negative <55 Equivocal 55 - 60 Positive >60 AMCA 25 units 0-100 Negative < 90 Equivocal 90 - 100 Positive >100 This test was developed and its performance characteristics determined by [employer] [employer]. It has not been cleared or approved by the Food and Drug Administration. The FDA has determined that such clearance or approval is not necessary.Atypical pANCA Negative Negative Comments Pattern is not suggestive of Inflammatory Bowel Disease ____ TESTING PERFORMED AT [facility]. ORIGINAL REPORT ON FILE IN LAB CONTAINS ADDITIONAL TEST SITE INFORMATION. VENEER SPLICER Antibody <0.2 AI 0.0-0.9 [facility] Platelets bldOrdered By: Freddy Casper on 10-02-2022 Platelets (Bld) [#/Vol] 334 10*3/uL 150-450 [facility] Serum DNA double strand anti body assay (units/volume)Ordered By: Raul Casper on 10-02-2022 DNA double strand Ab Qn (S) 1 [IU]/mL 0-9 [facility] Comment on above: Negative <5 Equivoca l 5 - 9 Positive >9 Serum Shira-1 antibody assay (u nits/volume)Ordered By: Raul Casper on 10-02-2022 Shira-1 extractable nuclear Ab Qn (S) <0.2 AI 0.0-0.9 [facility] Serum Scl-70 extractable nuc lear antibody assay (units/volume)Ordered By: Raul Casper on 10-02-2022 SCL-70 extractable nuclear Ab Qn (S) <0.2 AI 0.0-0.9 [facility] Serum Louise extractable nucl ear antibody detectionOrdered By: Raul Casper on 10-02-2022 Louise extractable nuclear Ab Ql (S) <0.2 AI 0.0-0.9 [facility] Serum [id number] measu rement by electrophoresisOrdered By: Raul Casper on 10-02-2022 Alpha 1 globulin Elph [Mass/Vol] 0.2 g/dL 0.0-0.4 [facility] Alpha 1 globulin Elph [Mass/Vol] 0.7 g/dL 0.4-1.0 [facility] Serum classic neutrophil cyt oplasmic antibody assay (units/volume)Ordered By: Raul Casper on 10-02-2022 Neutrophil cytoplasmic Ab.classic Qn (S) <1:20 titer Neg:<1:20 [facility] Comment on above: Serum is slightly li pemic. Serum globulin measurement ( mass/volume)Ordered By: Raul Casper on 10-02-2022 Globulin (S) [Mass/Vol] 3.5 g/dL 2.2-3.9 [facility] Serum or plasma C reactive p rotein measurement (mass/volume)Ordered By: Raul Casper on 10-02-2022 CRP [Mass/Vol] 5.65 mg/L 0.0-3.0 [facility] Comment on above: C-Reactive Protein ( CRP) provides useful information for thediagnosis, therapy and monitoring of inflammatory processesand associated diseases. For the evaluation of Relative Riskfor Cardiovascular Disease, a High Sensitivity CRP (HSCRP)should be ordered. Serum or plasma IgA measurem ent (mass/volume)Ordered By: Raul Casper on 10-02-2022 IgA [Mass/Vol] 473 mg/dL 64-422 [facility] Serum or plasma IgG measurem ent (mass/volume)Ordered By: Raul Casper on 10-02-2022 IgG [Mass/Vol] 1301 mg/dL [id number] [facility] Serum or plasma IgM measurem ent (mass/volume)Ordered By: Raul Casper on 10-02-2022 IgM [Mass/Vol] 75 mg/dL 26-217 [facility] Serum or plasma albumin jojo urement (mass/volume)Ordered By: Raul Casper on 10-02-2022 Albumin [Mass/Vol] 3.5 g/dL 3.2-5.0 [facility] Serum or plasma albumin/glob ulin mass ratioOrdered By: Raul Casper on 10-02-2022 Albumin/Globulin [Mass ratio] 0.8 {ratio} 0.9-2.4 [facility] Serum or plasma beta globuli n measurement by electrophoresis (mass/volume)Ordered By: Raul Casper on 10-02-2022 Beta globulin Elph [Mass/Vol] 1.2 g/dL 0.7-1.3 [facility] Serum or plasma calcium jojo urement (mass/volume)Ordered By: Raul Casper on 10-02-2022 Calcium [Mass/Vol] 9.2 mg/dL 8.5-10.1 [facility] Serum or plasma creatinine m easurement (mass/volume)Ordered By: Raul Casper on 10-02-2022 Creatinine [Mass/Vol] 0.94 mg/dL 0.55-1.02 [facility] Comment on above: The validity of the calculated GFR & GFRAA in patients over 70 years has not been determined. Clinical correlation is essential. Serum or plasma gamma globul in measurement by electrophoresis (mass/volume)Ordered By: Raul Casper on 10-02-2022 Gamma globulin Elph [Mass/Vol] 1.3 g/dL 0.4-1.8 [facility] Serum or plasma immunoelectr ophoresis interpretation (nominal result)Ordered By: Raul Casper on 10-02-2022 Interpretation IEP [Interp] Comment . [facility] Comment on above: No monoclonality det ected. Serum or plasma urea nitroge n measurement (mass/volume)Ordered By: Raul Casper on 10-02-2022 Urea nitrogen [Mass/Vol] 17 mg/dL 7-18 [facility] Serum perinuclear neutrophil cytoplasmic antibody titer by immunofluorescenceOrdered By: Raul Casper on 10-02-2022 Neutrophil cytoplasmic Ab.perinuclear IF (S) [Titer] <1:20 titer Neg:<1:20 [facility] Comment on above: Serum is slightly li pemic.The presence of positive fluorescence exhibiting P-ANCA orC-ANCA patterns alone is not specific for the diagnosis ofWegener's Granulomatosis (WG) or microscopic polyangiitis.Decisions about treatment should not be based solely onANCA IFA results. The [employer] ANCA Group Consensusrecommends follow up testing of positive sera with both PA-3 and MPO-ANCA enzyme immunoassays. As many as 5% serumsamples are positive only by EIA. Ref. AM J Clin [id number];111:507-513. Serum tissue transglutaminas e IgA antibody assay (units/volume)Ordered By: Raul Casper on 10-02-2022 tTG IgA Qn (S) <2 U/mL 0-3 [facility] Comment on above: Negative 0 - 3 Weak Positive 4 - 10 Positive >10 Tissue Transglutaminase (tTG) has been identified as the endomysial antigen. Studies have demonstr- ated that endomysial IgA antibodies have over 99% specificity for gluten sensitive enteropathy. Thin prep Papanicolaou smear with manual screeningOrdered By: Raul Friend on 10-02-2022 Thin prep Papanicolaou smear with manual screening 21 U/L 15-37 [facility] Thin prep Papanicolaou smear with manual screening 6 5-15 [facility] Thin prep Papanicolaou smear with manual screening 1.1 0.7-1.7 [facility] Total protein bloodOrdered B y: Raul Friend on 10-02-2022 Protein [Mass/Vol] 7.1 g/dL 6.0-8.5 [facility] FORTUNATO SCREENINGon 09-13-2022 [facility] Absolute lymphocyte countOrd ered By: ED PROVIDER on 08-05-2022 Lymphocytes Auto (Unsp spec) [#/Vol] 2.49 10*3/uL 0.83-4.51 [facility] Basophil percentageOrdered B y: ED PROVIDER on 08-05-2022 Basophils/100 WBC (Bld) 1.2 % 0-1 [facility] Bilirubin [Mass/Vol] 0.70 mg/dL 0.20-1.00 [facility] Comment on above: For patients on eltr ombopag therapy, use of Dimension [place] TBIL is not recommended. Chloride [Moles/Vol] 107 mmol/L 98-107 [facility] Eosinophils/100 WBC (Bld) 5.4 % 0-5 [facility] Glucose [Mass/Vol] 110 mg/dL 74-106 [facility] Comment on above: Fasting Glucose resu lt from 100 to 125 mg/dL suggests IMPAIRED HOMEOSTASIS per A.D.A. criteria. Neutrophils (Bld) [#/Vol] 5.9 10*3/uL 2.0-7.7 [facility] Neutrophils/100 WBC (Bld) 60.4 % 47-70 [facility] Potassium [Moles/Vol] 4.1 mmol/L 3.5-5.1 [facility] Protein [Mass/Vol] 7.7 g/dL 6.4-8.2 [facility] Sodium [Moles/Vol] 140 mmol/L 136-145 [facility] WBC (Bld) [#/Vol] 9.8 10*3/uL 4.4-11.0 [facility] Blood erythrocytes count (nu mber/volume)Ordered By: ED PROVIDER on 08-05-2022 RBC (Bld) [#/Vol] 4.73 10*6/uL 4.2-5.4 [facility] Blood hemoglobin measurement (mass/volume)Ordered By: ED PROVIDER on 08-05-2022 Hemoglobin (Bld) [Mass/Vol] 14.8 g/dL 12.0-15.0 [facility] Blood lymphocytes/100 leukoc ytesOrdered By: ED PROVIDER on 08-05-2022 Lymphocytes/100 WBC (Bld) 25.3 % 19-41 [facility] Blood monocytes/100 leukocyt esOrdered By: ED PROVIDER on 08-05-2022 Monocytes/100 WBC (Bld) 7.4 % 0-10 [facility] Blood platelet mean volumeOr dered By: ED PROVIDER on 08-05-2022 Platelet mean volume (Bld) [Entitic vol] 9.4 fL 6.2-12.0 [facility] Determination of erythrocyte mean corpuscular volume (MCV)Ordered By: ED PROVIDER on 08-05-2022 MCV (RBC) [Entitic vol] 93.2 fL 81-99 [facility] Hematocrit Auto (Bld) [Volum e fraction]Ordered By: ED PROVIDER on 08-05-2022 Hematocrit (Bld) [Volume fraction] 44.1 % 37-47 [facility] Laboratory - Chemistry and C hemistry - challengeOrdered By: ED PROVIDER on 08-05-2022 ALP [Catalytic activity/Vol] 93 U/L 45-117 [facility] ALT [Catalytic activity/Vol] 37 U/L 13-56 [facility] CO2 [Moles/Vol] 27.0 mmol/L 21.0-32.0 [facility] Globulin (S) [Mass/Vol] 4.2 g/dL 2.2-4.2 [facility] Urea nitrogen/Creatinine [Mass ratio] 16.9 mg/mg 10-20 [facility] Laboratory - Chemistry and C hemistry - challengeOrdered By: Paul Lara on 08-05-2022 Lipase [Catalytic activity/Vol] 27 U/L 13-75 [facility] Comment on above: Please note:LIPASE r evised reference range effective 22. New Lipase methodology. Expected to produce lower values than the previous assay method. NEW Reference Range: 13 - 75 U/L Laboratory - Hematology and Cell countsOrdered By: ED PROVIDER on 08-05-2022 Erythrocyte distribution width (RBC) [Entitic vol] 44.8 fL 35.1-43.9 [facility] Erythrocyte distribution width (RBC) [Ratio] 13.1 % 11.6-14.6 [facility] Immature granulocytes/100 WBC (Bld) 0.300 % 0.0-0.9 [facility] Comment on above: IG% - Immature Granu locytes (promyelocytes, myelocytes and metamyelocytes) > 1% indicates that a LEFT SHIFT is Present. MCH (RBC) [Entitic mass] 31.3 pg 27.0-32.0 [facility] Nucleated RBC/100 WBC (Bld) [Ratio] 0 % 0-5 [facility] MCHC Auto (RBC) [Mass/Vol]Or dered By: ED PROVIDER on 08-05-2022 MCHC (RBC) [Mass/Vol] 33.6 g/dL 32-36 [facility] No Panel InformationOrdered By: ED PROVIDER on 08-05-2022 Estimated Creatinine Clearance Calc 49.34 ml/min [facility] Estimated GFR (MDRD) Amer 80 mL/min >60 [facility] Comment on above: GFR Calc Estimated GFR (MDRD) Non-Af Amer 66 mL/min >60 [facility] Comment on above: Non- GFR Calc Platelets bldOrdered By: ED PROVIDER on 08-05-2022 Platelets (Bld) [#/Vol] 326 10*3/uL 150-450 [facility] Serum or plasma albumin jojo urement (mass/volume)Ordered By: ED PROVIDER on 08-05-2022 Albumin [Mass/Vol] 3.5 g/dL 3.2-5.0 [facility] Serum or plasma albumin/glob ulin mass ratioOrdered By: ED PROVIDER on 08-05-2022 Albumin/Globulin [Mass ratio] 0.8 {ratio} 0.9-2.4 [facility] Serum or plasma calcium jojo urement (mass/volume)Ordered By: ED PROVIDER on 08-05-2022 Calcium [Mass/Vol] 9.5 mg/dL 8.5-10.1 [facility] Serum or plasma creatinine m easurement (mass/volume)Ordered By: ED PROVIDER on 08-05-2022 Creatinine [Mass/Vol] 0.89 mg/dL 0.55-1.02 [facility] Comment on above: The validity of the calculated GFR & GFRAA in patients over 70 years has not been determined. Clinical correlation is essential. Serum or plasma urea nitroge n measurement (mass/volume)Ordered By: ED PROVIDER on 08-05-2022 Urea nitrogen [Mass/Vol] 15 mg/dL 7-18 [facility] Thin prep Papanicolaou smear with manual screeningOrdered By: ED PROVIDER on 08-05-2022 Thin prep Papanicolaou smear with manual screening 23 U/L 15-37 [facility] Thin prep Papanicolaou smear with manual screening 6 5-15 [facility] Absolute lymphocyte countOrd ered By: Dr. Bernabe on 05-06-2022 Lymphocytes Auto (Unsp spec) [#/Vol] 3.48 10*3/uL 0.83-4.51 [facility] Basophil percentageOrdered B y: Dr. Bernabe on 05-06-2022 Basophils/100 WBC (Bld) 1.0 % 0-1 [facility] Bilirubin [Mass/Vol] 0.60 mg/dL 0.20-1.00 [facility] Comment on above: For patients on eltr ombopag therapy, use of Dimension [place] TBIL is not recommended. Chloride [Moles/Vol] 108 mmol/L 98-107 [facility] Eosinophils/100 WBC (Bld) 9.0 % 0-5 [facility] Glucose [Mass/Vol] 124 mg/dL 74-106 [facility] Comment on above: Fasting Glucose resu lt from 100 to 125 mg/dL suggests IMPAIRED HOMEOSTASIS per A.D.A. criteria. Neutrophils (Bld) [#/Vol] 3.1 10*3/uL 2.0-7.7 [facility] Neutrophils/100 WBC (Bld) 37.9 % 47-70 [facility] Potassium [Moles/Vol] 3.5 mmol/L 3.5-5.1 [facility] Protein [Mass/Vol] 6.4 g/dL 6.4-8.2 [facility] Sodium [Moles/Vol] 141 mmol/L 136-145 [facility] WBC (Bld) [#/Vol] 8.1 10*3/uL 4.4-11.0 [facility] Blood erythrocytes count (nu mber/volume)Ordered By: Dr. Bernabe on 05-06-2022 RBC (Bld) [#/Vol] 4.31 10*6/uL 4.2-5.4 [facility] Blood hemoglobin measurement (mass/volume)Ordered By: Dr. Bernabe on 05-06-2022 Hemoglobin (Bld) [Mass/Vol] 13.2 g/dL 12.0-15.0 [facility] Blood lymphocytes/100 leukoc ytesOrdered By: Dr. Bernabe on 05-06-2022 Lymphocytes/100 WBC (Bld) 42.9 % 19-41 [facility] Blood monocytes/100 leukocyt esOrdered By: Dr. Bernabe on 05-06-2022 Monocytes/100 WBC (Bld) 9.0 % 0-10 [facility] Blood platelet mean volumeOr dered By: Dr. Bernabe on 05-06-2022 Platelet mean volume (Bld) [Entitic vol] 9.7 fL 6.2-12.0 [facility] Determination of erythrocyte mean corpuscular volume (MCV)Ordered By: Dr. Bernabe on 05-06-2022 MCV (RBC) [Entitic vol] 94.7 fL 81-99 [facility] Hematocrit Auto (Bld) [Volum e fraction]Ordered By: Dr. Bernabe on 05-06-2022 Hematocrit (Bld) [Volume fraction] 40.8 % 37-47 [facility] Laboratory - Chemistry and C hemistry - challengeOrdered By: Dr. Bernabe on 05-06-2022 ALP [Catalytic activity/Vol] 59 U/L 45-117 [facility] ALT [Catalytic activity/Vol] 27 U/L 13-56 [facility] CO2 [Moles/Vol] 26.0 mmol/L 21.0-32.0 [facility] Globulin (S) [Mass/Vol] 3.4 g/dL 2.2-4.2 [facility] Urea nitrogen/Creatinine [Mass ratio] 15.0 mg/mg 10-20 [facility] Laboratory - Hematology and Cell countsOrdered By: Dr. Bernabe on 05-06-2022 Erythrocyte distribution width (RBC) [Entitic vol] 46.9 fL 35.1-43.9 [facility] Erythrocyte distribution width (RBC) [Ratio] 13.4 % 11.6-14.6 [facility] Immature granulocytes/100 WBC (Bld) 0.200 % 0.0-0.9 [facility] Comment on above: IG% - Immature Granu locytes (promyelocytes, myelocytes and metamyelocytes) > 1% indicates that a LEFT SHIFT is Present. MCH (RBC) [Entitic mass] 30.6 pg 27.0-32.0 [facility] Nucleated RBC/100 WBC (Bld) [Ratio] 0 % 0-5 [facility] MCHC Auto (RBC) [Mass/Vol]Or dered By: Dr. Bernabe on 05-06-2022 MCHC (RBC) [Mass/Vol] 32.4 g/dL 32-36 [facility] No Panel InformationOrdered By: Dr. Campos on 05-06-2022 D-Dimer Quantitative (PE/DVT) 0.50 FEU/ug/m 0.27-0.49 [facility] Comment on above: D-Dimer ELEVATED (>0 .49): Additional studies and clinicalassessments are indicated to conclude diagnosis of:Deep Vein Thrombosis (DVT) or Pulmonary Embolism (PE)CRITICAL VALUE VERIFIED. CALLED TO [id number] Tessie Andrade.RESULTS READ BACK BY SAME . Thyroid Stimulating Hormone (TSH) 4.36 uIU/mL 0.358-3.74 [facility] No Panel InformationOrdered By: Dr. Bernabe on 05-06-2022 Estimated Creatinine Clearance Calc 54.89 ml/min [facility] Estimated GFR (MDRD) Amer 91 mL/min >60 [facility] Comment on above: GFR Calc Estimated GFR (MDRD) Non-Af Amer 75 mL/min >60 [facility] Comment on above: Non- GFR Calc Platelets bldOrdered By: Dr. Bernabe on 05-06-2022 Platelets (Bld) [#/Vol] 293 10*3/uL 150-450 [facility] Serum or plasma albumin jojo urement (mass/volume)Ordered By: Dr. Bernabe on 05-06-2022 Albumin [Mass/Vol] 3.0 g/dL 3.2-5.0 [facility] Serum or plasma albumin/glob ulin mass ratioOrdered By: Dr. Bernabe on 05-06-2022 Albumin/Globulin [Mass ratio] 0.9 {ratio} 0.9-2.4 [facility] Serum or plasma calcium jojo urement (mass/volume)Ordered By: Dr. Bernabe on 05-06-2022 Calcium [Mass/Vol] 8.6 mg/dL 8.5-10.1 [facility] Serum or plasma creatinine m easurement (mass/volume)Ordered By: Dr. Bernabe on 05-06-2022 Creatinine [Mass/Vol] 0.80 mg/dL 0.55-1.02 [facility] Comment on above: The validity of the calculated GFR & GFRAA in patients over 70 years has not been determined. Clinical correlation is essential. Serum or plasma urea nitroge n measurement (mass/volume)Ordered By: Dr. Bernabe on 05-06-2022 Urea nitrogen [Mass/Vol] 12 mg/dL 7-18 [facility] Thin prep Papanicolaou smear with manual screeningOrdered By: Dr. Bernabe on 05-06-2022 Thin prep Papanicolaou smear with manual screening 22 U/L 15-37 [facility] Thin prep Papanicolaou smear with manual screening 7 5-15 [facility] Absolute lymphocyte countOrd ered By: La Nena Collazo on 05-05-2022 Lymphocytes Auto (Unsp spec) [#/Vol] 2.27 10*3/uL 0.83-4.51 [facility] Basophil percentageOrdered B y: La Nena Collazo on 05-05-2022 Basophil percentage 0-5 SEEN /hpf 0-5 [facility] Basophils/100 WBC (Bld) 0.9 % 0-1 [facility] Chloride [Moles/Vol] 105 mmol/L 98-107 [facility] Eosinophils/100 WBC (Bld) 4.8 % 0-5 [facility] Glucose [Mass/Vol] 183 mg/dL 74-106 [facility] Comment on above: Fasting Glucose resu lt greater than or equal to 126 mg/dL suggests DIABETES MELLITUS per A.D.A. criteria. Neutrophils (Bld) [#/Vol] 6.8 10*3/uL 2.0-7.7 [facility] Neutrophils/100 WBC (Bld) 65.4 % 47-70 [facility] Potassium [Moles/Vol] 3.9 mmol/L 3.5-5.1 [facility] Sodium [Moles/Vol] 137 mmol/L 136-145 [facility] WBC (Bld) [#/Vol] 10.4 10*3/uL 4.4-11.0 [facility] Bilirubin Test strip Ql (U)O rdered By: La Nena Collazo on 05-05-2022 Bilirubin Ql (U) Negative Negative [facility] Blood erythrocytes count (nu mber/volume)Ordered By: La Nena Collazo on 05-05-2022 RBC (Bld) [#/Vol] 4.66 10*6/uL 4.2-5.4 [facility] Blood hemoglobin measurement (mass/volume)Ordered By: La Nena Collazo on 05-05-2022 Hemoglobin (Bld) [Mass/Vol] 14.3 g/dL 12.0-15.0 [facility] Blood lymphocytes/100 leukoc ytesOrdered By: La Nena Collazo on 05-05-2022 Lymphocytes/100 WBC (Bld) 21.7 % 19-41 [facility] Blood monocytes/100 leukocyt esOrdered By: La Nena Collazo on 05-05-2022 Monocytes/100 WBC (Bld) 6.9 % 0-10 [facility] Blood platelet mean volumeOr dered By: La Nena Collazo on 05-05-2022 Platelet mean volume (Bld) [Entitic vol] 9.4 fL 6.2-12.0 [facility] Determination of erythrocyte mean corpuscular volume (MCV)Ordered By: La Nena Collazo on 05-05-2022 MCV (RBC) [Entitic vol] 93.6 fL 81-99 [facility] Hematocrit Auto (Bld) [Volum e fraction]Ordered By: La Nena Collazo on 05-05-2022 Hematocrit (Bld) [Volume fraction] 43.6 % 37-47 [facility] Ketones Test strip Ql (U)Ord ered By: La Nena Collazo on 05-05-2022 Ketones Ql (U) Negative Negative [facility] Laboratory - Chemistry and C hemistry - challengeOrdered By: La Nena Collazo on 05-05-2022 CK [Catalytic activity/Vol] 186 U/L 26-192 [facility] CO2 [Moles/Vol] 25.0 mmol/L 21.0-32.0 [facility] Urea nitrogen/Creatinine [Mass ratio] 21.5 mg/mg 10-20 [facility] Laboratory - Hematology and Cell countsOrdered By: La Nena Collazo on 05-05-2022 Erythrocyte distribution width (RBC) [Entitic vol] 45.6 fL 35.1-43.9 [facility] Erythrocyte distribution width (RBC) [Ratio] 13.3 % 11.6-14.6 [facility] Immature granulocytes/100 WBC (Bld) 0.300 % 0.0-0.9 [facility] Comment on above: IG% - Immature Granu locytes (promyelocytes, myelocytes and metamyelocytes) > 1% indicates that a LEFT SHIFT is Present. MCH (RBC) [Entitic mass] 30.7 pg 27.0-32.0 [facility] Nucleated RBC/100 WBC (Bld) [Ratio] 0 % 0-5 [facility] MCHC Auto (RBC) [Mass/Vol]Or dered By: La Nena Collazo on 05-05-2022 MCHC (RBC) [Mass/Vol] 32.8 g/dL 32-36 [facility] Mucus LM Ql (Urine sed)Order ed By: La Nena Collazo on 05-05-2022 Mucus Ql (Urine sed) 0 SEEN /hpf [facility] Nitrite Test strip Ql (U)Ord ered By: La Nena Collazo on 05-05-2022 Nitrite Ql (U) Negative Negative [facility] No Panel InformationOrdered By: La Nena Collazo on 05-05-2022 Troponin I High Sensitivity 4 pg/mL 3.0-54.0 [facility] Comment on above: Please Note: New Ariella t Units and Gender Specific Reference Ranges. For more information see Policy Stat Procedure [place] High Sensitivity Troponin (TNIH) and attachments. Estimated Creatinine Clearance Calc 44.81 ml/min [facility] Estimated GFR (MDRD) Amer 72 mL/min >60 [facility] Comment on above: GFR Calc Estimated GFR (MDRD) Non-Af Amer 59 mL/min >60 [facility] Comment on above: Non- GFR Calc Platelets bldOrdered By: Smita Collazo on 05-05-2022 Platelets (Bld) [#/Vol] 310 10*3/uL 150-450 [facility] Protein Test strip Ql (U)Ord ered By: La Nena Collazo on 05-05-2022 Protein Ql (U) Negative Negative [facility] Serum or plasma calcium jojo urement (mass/volume)Ordered By: La Nena Collazo on 05-05-2022 Calcium [Mass/Vol] 9.2 mg/dL 8.5-10.1 [facility] Serum or plasma creatinine m easurement (mass/volume)Ordered By: La Nena Collazo on 05-05-2022 Creatinine [Mass/Vol] 0.98 mg/dL 0.55-1.02 [facility] Comment on above: The validity of the calculated GFR & GFRAA in patients over 70 years has not been determined. Clinical correlation is essential. Serum or plasma urea nitroge n measurement (mass/volume)Ordered By: La Nena Collazo on 05-05-2022 Urea nitrogen [Mass/Vol] 21 mg/dL 7-18 [facility] Squamous epithelial cells de tection in urine sediment by light microscopyOrdered By: La Nena Collazo on 05-05-2022 Epithelial cells.squamous LM Ql (Urine sed) 0-5 SEEN /hpf 5-10 [facility] Thin prep Papanicolaou smear with manual screeningOrdered By: La Nena Collazo on 05-05-2022 Thin prep Papanicolaou smear with manual screening 7 5-15 [facility] Urine blood detectionOrdered By: La Nena Collazo on 05-05-2022 RBC Ql (U) Negative Negative [facility] RBC Ql (U) 0 SEEN /hpf 0-5 [facility] Urine clarityOrdered By: Smita Collazo on 05-05-2022 Clarity (U) Clear Clear [facility] Urine color determinationOrd ered By: La Nena Collazo on 05-05-2022 Color (U) Straw Yellow [facility] Urine glucose detectionOrder ed By: La Nena Collazo on 05-05-2022 Glucose Ql (U) Normal mg/dl Normal [facility] Urine leukocyte esterase det ection by dipstickOrdered By: La Nena Collazo on 05-05-2022 Leukocyte esterase Test strip Ql (U) 25 /ul Negative [facility] Urine pHOrdered By: La Nena ramos on 05-05-2022 pH (U) 6.0 [pH] 5.0 - 8.0 [facility] Urine sediment bacteria coun t by microscopy (number/high power field)Ordered By: La Nena Collazo on 05-05-2022 Bacteria LM.HPF (Urine sed) [#/Area] 0 /[HPF] None Seen [facility] Urine specific gravity measu rementOrdered By: La Nena Collazo on 05-05-2022 Specific gravity (U) [Rel density] 1.010 1.002-1.03 0 [facility] Urobilinogen Auto test strip Ql (U)Ordered By: La Nena Collazo on 05-05-2022 Urobilinogen Ql (U) Normal mg/dl Normal [facility] Absolute lymphocyte countOrd ered By: Dr. Alatorre on 04-24-2022 Lymphocytes Auto (Unsp spec) [#/Vol] 3.87 10*3/uL 0.83-4.51 [facility] Basophil percentageOrdered B y: Dr. Alatorre on 04-24-2022 Basophils/100 WBC (Bld) 0.9 % 0-1 [facility] Chloride [Moles/Vol] 107 mmol/L 98-107 [facility] Eosinophils/100 WBC (Bld) 6.8 % 0-5 [facility] Glucose [Mass/Vol] 104 mg/dL 74-106 [facility] Comment on above: Fasting Glucose resu lt from 100 to 125 mg/dL suggests IMPAIRED HOMEOSTASIS per A.D.A. criteria. Neutrophils (Bld) [#/Vol] 5.5 10*3/uL 2.0-7.7 [facility] Neutrophils/100 WBC (Bld) 49.5 % 47-70 [facility] Potassium [Moles/Vol] 3.8 mmol/L 3.5-5.1 [facility] Sodium [Moles/Vol] 142 mmol/L 136-145 [facility] WBC (Bld) [#/Vol] 11.1 10*3/uL 4.4-11.0 [facility] Blood erythrocytes count (nu mber/volume)Ordered By: Dr. Alatorre on 04-24-2022 RBC (Bld) [#/Vol] 4.79 10*6/uL 4.2-5.4 [facility] Blood hemoglobin measurement (mass/volume)Ordered By: Dr. Alatorre on 04-24-2022 Hemoglobin (Bld) [Mass/Vol] 14.5 g/dL 12.0-15.0 [facility] Blood lymphocytes/100 leukoc ytesOrdered By: Dr. Alatorre on 04-24-2022 Lymphocytes/100 WBC (Bld) 34.8 % 19-41 [facility] Blood monocytes/100 leukocyt esOrdered By: Dr. Alatorre on 04-24-2022 Monocytes/100 WBC (Bld) 7.7 % 0-10 [facility] Blood platelet mean volumeOr dered By: Dr. Alatorre on 04-24-2022 Platelet mean volume (Bld) [Entitic vol] 9.5 fL 6.2-12.0 [facility] Determination of erythrocyte mean corpuscular volume (MCV)Ordered By: Dr. Alatorre on 04-24-2022 MCV (RBC) [Entitic vol] 94.8 fL 81-99 [facility] Hematocrit Auto (Bld) [Volum e fraction]Ordered By: Dr. Alatorre on 04-24-2022 Hematocrit (Bld) [Volume fraction] 45.4 % 37-47 [facility] Laboratory - Chemistry and C hemistry - challengeOrdered By: Dr. Alatorre on 04-24-2022 CO2 [Moles/Vol] 29.0 mmol/L 21.0-32.0 [facility] Urea nitrogen/Creatinine [Mass ratio] 20.2 mg/mg 10-20 [facility] Laboratory - Hematology and Cell countsOrdered By: Dr. Alatorre on 04-24-2022 Erythrocyte distribution width (RBC) [Entitic vol] 46.0 fL 35.1-43.9 [facility] Erythrocyte distribution width (RBC) [Ratio] 13.2 % 11.6-14.6 [facility] Immature granulocytes/100 WBC (Bld) 0.300 % 0.0-0.9 [facility] Comment on above: IG% - Immature Granu locytes (promyelocytes, myelocytes and metamyelocytes) > 1% indicates that a LEFT SHIFT is Present. MCH (RBC) [Entitic mass] 30.3 pg 27.0-32.0 [facility] Nucleated RBC/100 WBC (Bld) [Ratio] 0 % 0-5 [facility] MCHC Auto (RBC) [Mass/Vol]Or dered By: Dr. Alatorre on 04-24-2022 MCHC (RBC) [Mass/Vol] 31.9 g/dL 32-36 [facility] No Panel InformationOrdered By: Dr. Alatorre on 04-24-2022 Estimated Creatinine Clearance Calc 43.91 ml/min [facility] Estimated GFR (MDRD) Amer 92 mL/min >60 [facility] Comment on above: GFR Calc Estimated GFR (MDRD) Non-Af Amer 76 mL/min >60 [facility] Comment on above: Non- GFR Calc Platelets bldOrdered By: Dr. Alatorre on 04-24-2022 Platelets (Bld) [#/Vol] 319 10*3/uL 150-450 [facility] Serum or plasma calcium jojo urement (mass/volume)Ordered By: Dr. Alatorre on 04-24-2022 Calcium [Mass/Vol] 9.3 mg/dL 8.5-10.1 [facility] Serum or plasma creatinine m easurement (mass/volume)Ordered By: Dr. Alatorre on 04-24-2022 Creatinine [Mass/Vol] 0.79 mg/dL 0.55-1.02 [facility] Comment on above: The validity of the calculated GFR & GFRAA in patients over 70 years has not been determined. Clinical correlation is essential. Serum or plasma urea nitroge n measurement (mass/volume)Ordered By: Dr. Alatorre on 04-24-2022 Urea nitrogen [Mass/Vol] 16 mg/dL 7-18 [facility] Thin prep Papanicolaou smear with manual screeningOrdered By: Dr. Alatorre on 04-24-2022 Thin prep Papanicolaou smear with manual screening 6 5-15 [facility] T3 FREE Don 10-13-2021 Free T3 [Mass/Vol] 3.1 pg/mL 2.3 - 4.1 pg/mL [facility] T4 FREE/FREE THYROXon 2021 Free T4 [Mass/Vol] 1.4 ng/dL 0.9 - 1.7 ng/dL [facility] TSH Don 10-13-2021 TSH Qn 1.750 m[IU]/L 0.270 - 4.200 mIU/L [facility] XR Shoulder - right 3 Viewso n 12-15-2020 IMPRESSION: 1. Degenerative changes 2. Question of a Hill-Sachs deformity of the humeral head [facility] Trans[facility] Date/Time: Dec 15 2020 2:27P Dictated by : KHADIJAH SHEEHAN DO This examination was interpreted and the report reviewed and electronically signed by: KHADIJAH SHEEHAN DO on Dec 15 2020 2:29PM [facility] * * *Final Report* * * DATE OF EXAM: Dec 15 2020 12:45PM WOX 5253 - XR SHLDR >/=3V AP/BENJAMIN AP/OTHR RT / PROCEDURE REASON: multiple diagnoses * * * * Physician Interpretation * * * * RIGHT shoulder EXAM DATE/TIME: 12/15/2020 12:45 PM HISTORY: 70 years old Clinical information: Acute pain of right shoulder History of recent fall Proximal right humeral pain following a fall yesterday. TECHNIQUE: Images: XR SHLDR >/=3V AP/BENJAMIN AP/OTHR RT Comparison: None. RESULT: Findings: Mild narrowing of the glenohumeral joint. Moderate narrowing of the AC joint. Flattening of the superior lateral aspect of the humeral head may represent a Hill-Sachs deformity. Bone density appears well-preserved. No fractures or dislocations are seen. DIVISION OF RADIOLOGY Provider, Timbo Lopez - 12/15/2020 * * *Final Report* * * DATE OF EXAM: Dec 15 2020 12:45PM WOX 5253 - XR SHLDR >/=3V AP/BENJAMIN AP/OTHR RT / PROCEDURE REASON: multiple diagnoses * * * * Physician Interpretation * * * * RIGHT shoulder EXAM DATE/TIME: 12/15/2020 12:45 PM HISTORY: 70 years old Clinical information: Acute pain of right shoulder History of recent fall Proximal right humeral pain following a fall yesterday. TECHNIQUE: Images: XR SHLDR >/=3V AP/BENJAMIN AP/OTHR RT Comparison: None. RESULT: Findings: Mild narrowing of the glenohumeral joint. Moderate narrowing of the AC joint. Flattening of the superior lateral aspect of the humeral head may represent a Hill-Sachs deformity. Bone density appears well-preserved. No fractures or dislocations are seen. IMPRESSION IMPRESSION: 1. Degenerative changes 2. Question of a Hill-Sachs deformity of the humeral head Literary Agent: [employer] Transcribe Date/Time: Dec 15 2020 2:27P Dictated by : KHADIJAH SHEEHAN DO This examination was interpreted and the report reviewed and electronically signed by: KHADIJAH SHEEHAN DO on Dec 15 2020 2:29PM EST [facility] Radiology Study observation (narrative) [facility] XR Shoulder - right 3 ViewsO rdered By: [facility] Provider on 12-15-2020 [facility] XR Hand - right PA and Later al and Obliqueon 08-30-2020 IMPRESSION: No acute osseous abnormality. Mild degenerative change. Literary Agent: [employer] Transcribe Date/Time: Aug 30 2020 2:37P Dictated by : LASHAE SINGH DO This examination was interpreted and the report reviewed and electronically signed by: LASHAE SINGH DO on Aug 30 2020 2:40PM EST DIVISION OF RADIOLOGY * * *Final Report* * * DATE OF EXAM: Aug 30 2020 1:49PM WOX 5346 - XR HAND 3V PA/LAT/OBL RT / PROCEDURE REASON: multiple diagnoses * * * * Physician Interpretation * * * * EXAMINATION: XR HAND 3V PA/LAT/OBL RT PATIENT/TECHNOLOGIST PROVIDED HISTORY: Pt. states possible Rt middle trigger finger. No injury. CLINICAL INFORMATION: 70 years old Female with Trigger middle finger of right hand. Ganglion cyst. Mass of finger, right. TECHNIQUE: XR HAND 3V PA/LAT/OBL RT Laterality: RIGHT Number of different views (projections): 3 COMPARISON: None RESULT: No fracture. Osteopenia. No erosions or periostitis. Mild degenerative change first CMC joint. Mild scattered degenerative changes of the interphalangeal joints with small marginal osteophytes. Capsular calcification at the second DIP joint. Bony alignment and joint spaces are otherwise maintained. Reactive cyst in the ulnar styloid. DIVISION OF RADIOLOGY Provider, [facility] - 08/30/2020 * * *Final Report* * * DATE OF EXAM: Aug 30 2020 1:49PM WOX 5346 - XR HAND 3V PA/LAT/OBL RT / PROCEDURE REASON: multiple diagnoses * * * * Physician Interpretation * * * * EXAMINATION: XR HAND 3V PA/LAT/OBL RT PATIENT/TECHNOLOGIST PROVIDED HISTORY: Pt. states possible Rt middle trigger finger. No injury. CLINICAL INFORMATION: 70 years old Female with Trigger middle finger of right hand. Ganglion cyst. Mass of finger, right. TECHNIQUE: XR HAND 3V PA/LAT/OBL RT Laterality: RIGHT Number of different views (projections): 3 COMPARISON: None RESULT: No fracture. Osteopenia. No erosions or periostitis. Mild degenerative change first CMC joint. Mild scattered degenerative changes of the interphalangeal joints with small marginal osteophytes. Capsular calcification at the second DIP joint. Bony alignment and joint spaces are otherwise maintained. Reactive cyst in the ulnar styloid. IMPRESSION IMPRESSION: No acute osseous abnormality. Mild degenerative change. 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 Postsurgical change. No complication. Literary Agent: [employer] Transcribe Date/Time: Jul 11 2020 1:24P Dictated by : ISABELA ORTEZ MD This examination was interpreted and the report reviewed and electronically signed by: ISABELA ORTEZ MD on Jul 11 2020 1:26PM [facility] DIV[facility] Radiology Study observation (narrative) [facility] No Panel InformationOrdered By: [facility] Provider on 07-11-2020 [facility] XR Lumbar spine 3 Viewson * * *Final Report* * * DATE OF EXAM: Jul 11 2020 1:13PM WOX 5228 - XR LUMBAR 3V AP/LAT/L5-S1 / PROCEDURE REASON: multiple diagnoses * * * * Physician Interpretation * * * * Thoracic and lumbar spine radiographs HISTORY: 70 years old Clinical information: Back pain of thoracolumbar region Back pain of thoracolumbar region Contusion of middle back wall of thorax, sequela Lumbar contusion, sequela pt states fell June 21 in a parking lot, pain is right on the spine from bet. the shoulder blades down to lower lumbar. does not radiate TECHNIQUE: Images: XR THORACIC 3V AP/LAT/SWIMMERS, XR LUMBAR 3V AP/LAT/L5-S1 Comparison: None. Thoracic spine RESULT: Right-sided convex curvature of the upper thoracic spine with compensatory left-sided convex curvature of the lower thoracic spine. Intervertebral disc space narrowing and endplate osteophyte formation at multiple levels in the thoracic spine. No fracture. Lumbar spine RESULT: Pedicle screws with associated posterior fixation rods extending from the L5 to the S1 level. Left-sided convex curvature of the upper lumbar spine. Grade 1 anterolisthesis of L4 on L5. No fracture. Paraspinous soft tissues are unremarkable in appearance. DIVISION OF RADIOLOGY Provider, [facility] Brandee Lopez - 07/11/2020 * * *Final Report* * * DATE OF EXAM: Jul 11 2020 1:13PM WOX 5228 - XR LUMBAR 3V AP/LAT/L5-S1 / PROCEDURE REASON: multiple diagnoses * * * * Physician Interpretation * * * * Thoracic and lumbar spine radiographs HISTORY: 70 years old Clinical information: Back pain of thoracolumbar region Back pain of thoracolumbar region Contusion of middle back wall of thorax, sequela Lumbar contusion, sequela pt states fell June 21 in a parking lot, pain is right on the spine from bet. the shoulder blades down to lower lumbar. does not radiate TECHNIQUE: Images: XR THORACIC 3V AP/LAT/SWIMMERS, XR LUMBAR 3V AP/LAT/L5-S1 Comparison: None. Thoracic spine RESULT: Right-sided convex curvature of the upper thoracic spine with compensatory left-sided convex curvature of the lower thoracic spine. Intervertebral disc space narrowing and endplate osteophyte formation at multiple levels in the thoracic spine. No fracture. Lumbar spine RESULT: Pedicle screws with associated posterior fixation rods extending from the L5 to the S1 level. Left-sided convex curvature of the upper lumbar spine. Grade 1 anterolisthesis of L4 on L5. No fracture. Paraspinous soft tissues are unremarkable in appearance. 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 Postsurgical change. No complication. [facility] Transcribe Date/Time: Jul 11 2020 1:24P Dictated by : ISABELA ORTEZ MD This examination was interpreted and the report reviewed and electronically signed by: ISABELA ORTEZ MD on Jul 11 2020 1:26PM [facility] XR Thoracic spine AP and Lat eral and Swimmerson 07-11-2020 * * *Final Report* * * DATE OF EXAM: Jul 11 2020 1:13PM WOX 5261 - XR THORACIC 3V AP/LAT/SWIMMERS / PROCEDURE REASON: multiple diagnoses * * * * Physician Interpretation * * * * Thoracic and lumbar spine radiographs HISTORY: 70 years old Clinical information: Back pain of thoracolumbar region Back pain of thoracolumbar region Contusion of middle back wall of thorax, sequela Lumbar contusion, sequela pt states fell June 21 in a parking lot, pain is right on the spine from bet. the shoulder blades down to lower lumbar. does not radiate TECHNIQUE: Images: XR THORACIC 3V AP/LAT/SWIMMERS, XR LUMBAR 3V AP/LAT/L5-S1 Comparison: None. Thoracic spine RESULT: Right-sided convex curvature of the upper thoracic spine with compensatory left-sided convex curvature of the lower thoracic spine. Intervertebral disc space narrowing and endplate osteophyte formation at multiple levels in the thoracic spine. No fracture. Lumbar spine RESULT: Pedicle screws with associated posterior fixation rods extending from the L5 to the S1 level. Left-sided convex curvature of the upper lumbar spine. Grade 1 anterolisthesis of L4 on L5. No fracture. Paraspinous soft tissues are unremarkable in appearance. DIVISION OF RADIOLOGY Provider, [facility] Brandee [facility] - 07/11/2020 * * *Final Report* * * DATE OF EXAM: Jul 11 2020 1:13PM WOX 5261 - XR THORACIC 3V AP/LAT/SWIMMERS / PROCEDURE REASON: multiple diagnoses * * * * Physician Interpretation * * * * Thoracic and lumbar spine radiographs HISTORY: 70 years old Clinical information: Back pain of thoracolumbar region Back pain of thoracolumbar region Contusion of middle back wall of thorax, sequela Lumbar contusion, sequela pt states fell June 21 in a parking lot, pain is right on the spine from bet. the shoulder blades down to lower lumbar. does not radiate TECHNIQUE: Images: XR THORACIC 3V AP/LAT/SWIMMERS, XR LUMBAR 3V AP/LAT/L5-S1 Comparison: None. Thoracic spine RESULT: Right-sided convex curvature of the upper thoracic spine with compensatory left-sided convex curvature of the lower thoracic spine. Intervertebral disc space narrowing and endplate osteophyte formation at multiple levels in the thoracic spine. No fracture. Lumbar spine RESULT: Pedicle screws with associated posterior fixation rods extending from the L5 to the S1 level. Left-sided convex curvature of the upper lumbar spine. Grade 1 anterolisthesis of L4 on L5. No fracture. Paraspinous soft tissues are unremarkable in appearance. 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 Postsurgical change. No complication. Literary Agent: [facility] Transcribe Date/Time: Jul 11 2020 1:24P Dictated by : ISABELA ORTEZ MD This examination was interpreted and the report reviewed and electronically signed by: ISABELA ORTEZ MD on Jul 11 2020 1:26PM [facility] Vital Signs Date Time Vital Sign Value Performing Clinician Facility 05-21-2024 13:40-0500 Body mass index (BMI) [Ratio] 34.81 kg/m2 Juan Rodriguez MOLDING MACHINE SETTER.AIRPLANE DISPATCHER Work Phone: [facility] 05-21-2024 13:40-0500 Body weight 92 kg Juan Casass MOLDING MACHINE SETTER.AIRPLANE DISPATCHER Work Phone: [facility] 05-21-2024 13:40-0500 Diastolic blood pressure 82 mm[Hg] Juan Rodriguez MOLDING MACHINE SETTER.AIRPLANE DISPATCHER Work Phone: [facility] 05-21-2024 13:40-0500 Heart rate 76 /min Juan Rodriguez MOLDING MACHINE SETTER.AIRPLANE DISPATCHER Work Phone: [facility] 05-21-2024 13:40-0500 Respiratory rate 16 /min Juan Rodriguez MOLDING MACHINE SETTER.AIRPLANE DISPATCHER Work Phone: [facility] 05-21-2024 13:40-0500 Systolic blood pressure 128 mm[Hg] Juan Rodriguez MOLDING MACHINE SETTER.AIRPLANE DISPATCHER Work Phone: [facility] 04-08-2024 11:36-0500 Diastolic blood pressure 84 mm[Hg] Dr. Paulo Scott MD Work Phone: 1(978)907-213376 [place] [address] 04-08-2024 11:36-0500 Heart rate 78 /min Dr. Paulo Scott MD Work Phone: 1(498)548-247776 [place] [address] 04-08-2024 11:36-0500 Respiratory rate 18 /min Dr. Paulo Scott MD Work Phone: 3(556)803-928176 [place] [address] 04-08-2024 11:36-0500 SaO2% (BldA) [Mass fraction] 96 % Dr. Paulo Scott MD Work Phone: 5(546)300-479476 [place] [address] 04-08-2024 11:36-0500 Systolic blood pressure 168 mm[Hg] Dr. Paulo Scott MD Work Phone: 1(750)340-694376 [place] [address] 04-08-2024 09:50-0500 Body height 162.[address] Paulo Scott MD Work Phone: 5(655)415-417876 [place] [address] 04-08-2024 09:50-0500 Body mass index (BMI) [Ratio] 34.3 kg/m2 Dr. Paulo Scott MD Work Phone: [facility] 04-08-2024 09:50-0500 Body weight 90.[address] Paulo Scott MD Work Phone: [facility] 03-12-2024 10:36-0500 Body mass index (BMI) [Ratio] 34.8 kg/m2 Dr. Paulo Scott MD Work Phone: [facility] 03-12-2024 10:36-0500 Body weight 92.[address] Paulo Scott MD Work Phone: [facility] 01-23-2024 13:14-0500 Body mass index (BMI) [Ratio] 34.21 kg/m2 Norman Sumeet MOLDING MACHINE SETTER.RESIDENTIAL DIRECTOR Work Phone: [facility] 01-23-2024 13:14-0500 Body temperature 97 [degF] Norman Sumeet MOLDING MACHINE SETTER.RESIDENTIAL DIRECTOR Work Phone: [facility] 01-23-2024 13:14-0500 Body weight 90.4 kg Norman Sumeet MOLDING MACHINE SETTER.RESIDENTIAL DIRECTOR Work Phone: [facility] 01-23-2024 13:14-0500 Diastolic blood pressure 78 mm[Hg] Norman Sumeet MOLDING MACHINE SETTER.RESIDENTIAL DIRECTOR Work Phone: [facility] 01-23-2024 13:14-0500 Heart rate 80 /min Norman Sumeet MOLDING MACHINE SETTER.RESIDENTIAL DIRECTOR Work Phone: [facility] 01-23-2024 13:14-0500 SaO2% (BldA) [Mass fraction] 97 % Norman Sumeet MOLDING MACHINE SETTER.RESIDENTIAL DIRECTOR Work Phone: [facility] 01-23-2024 13:14-0500 Systolic blood pressure 128 mm[Hg] Norman Sumeet MOLDING MACHINE SETTER.RESIDENTIAL DIRECTOR Work Phone: [facility] 10-17-2023 10:10-0400 Body height 162.6 cm Juan Rodriguez MOLDING MACHINE SETTER.AIRPLANE DISPATCHER Work Phone: [facility] 10-17-2023 10:10-0400 Body mass index (BMI) [Ratio] 33.04 kg/m2 Juan Rodriguez MOLDING MACHINE SETTER.AIRPLANE DISPATCHER Work Phone: [facility] 10-17-2023 10:10-0400 Body weight 87.3 kg Juan Rodriguez MOLDING MACHINE SETTER.AIRPLANE DISPATCHER Work Phone: [facility] 10-17-2023 10:10-0400 Diastolic blood pressure 66 mm[Hg] Juan Rodriguez MOLDING MACHINE SETTER.AIRPLANE DISPATCHER Work Phone: [facility] 10-17-2023 10:10-0400 Heart rate 83 /min Juan Rodriguez MOLDING MACHINE SETTER.AIRPLANE DISPATCHER Work Phone: [facility] 10-17-2023 10:10-0400 Respiratory rate 14 /min Juan Rodriguez MOLDING MACHINE SETTER.AIRPLANE DISPATCHER Work Phone: [facility] 10-17-2023 10:10-0400 SaO2% (BldA) [Mass fraction] 95 % Juan Rodriguez MOLDING MACHINE SETTER.AIRPLANE DISPATCHER Work Phone: [facility] 10-17-2023 10:10-0400 Systolic blood pressure 128 mm[Hg] Juan Rodriguez MOLDING MACHINE SETTER.AIRPLANE DISPATCHER Work Phone: [facility] 09-17-2023 13:45-0400 Body mass index (BMI) [Ratio] 32.79 kg/m2 Paulo Scott MD Work Phone: [facility] 09-17-2023 13:45-0400 Body temperature 98.4 [degF] Paulo Scott MD Work Phone: [facility] 09-17-2023 13:45-0400 Body weight 86.64 kg Paulo Scott MD Work Phone: [facility] 09-17-2023 13:45-0400 Diastolic blood pressure 78 mm[Hg] Paulo Scott MD Work Phone: [facility] 09-17-2023 13:45-0400 Heart rate 87 /min Paulo Scott MD Work Phone: [facility] 09-17-2023 13:45-0400 Respiratory rate 18 /min Paulo Scott MD Work Phone: [facility] 09-17-2023 13:45-0400 SaO2% (BldA) [Mass fraction] 97 % Paulo Scott MD Work Phone: [facility] 09-17-2023 13:45-0400 Systolic blood pressure 128 mm[Hg] Paulo Scott MD Work Phone: [facility] 07-22-2023 16:17-0400 Body mass index (BMI) [Ratio] 33 kg/m2 Krislyn Aberegg PA Work Phone: [facility] 07-22-2023 16:17-0400 Body temperature 99.19 [degF] Krislyn Aberegg PA Work Phone: [facility] 07-22-2023 16:17-0400 Body weight 87.2 kg Krislyn Aberegg PA Work Phone: [facility] 07-22-2023 16:17-0400 Diastolic blood pressure 90 mm[Hg] Krislyn Aberegg PA Work Phone: [facility] 07-22-2023 16:17-0400 Heart rate 102 /min Krislyn Aberegg PA Work Phone: [facility] 07-22-2023 16:17-0400 Respiratory rate 18 /min Krislyn Aberegg PA Work Phone: [facility] 07-22-2023 16:17-0400 SaO2% (BldA) [Mass fraction] 96 % Krislyn Aberegg PA Work Phone: [facility] 07-22-2023 16:17-0400 Systolic blood pressure 144 mm[Hg] Krislyn Aberegg PA Work Phone: [facility] 07-04-2023 10:56-0400 Body height 162.6 cm Norman Garcia APRN.CNP Work Phone: [facility] 07-04-2023 10:56-0400 Body temperature 98.91 [degF] Norman Sumeet MOLDING MACHINE SETTER.RESIDENTIAL DIRECTOR Work Phone: [facility] 07-04-2023 10:56-0400 Body weight 85.28 kg Norman Sumeet MOLDING MACHINE SETTER.RESIDENTIAL DIRECTOR Work Phone: [facility] 07-04-2023 10:56-0400 Diastolic blood pressure 70 mm[Hg] Norman Sumeet MOLDING MACHINE SETTER.RESIDENTIAL DIRECTOR Work Phone: [facility] 07-04-2023 10:56-0400 Heart rate 88 /min Norman Sumeet MOLDING MACHINE SETTER.RESIDENTIAL DIRECTOR Work Phone: [facility] 07-04-2023 10:56-0400 Respiratory rate 14 /min Norman Sumeet MOLDING MACHINE SETTER.RESIDENTIAL DIRECTOR Work Phone: [facility] 07-04-2023 10:56-0400 SaO2% (BldA) [Mass fraction] 96 % Norman Sumeet MOLDING MACHINE SETTER.RESIDENTIAL DIRECTOR Work Phone: [facility] 07-04-2023 10:56-0400 Systolic blood pressure 136 mm[Hg] Norman Sumeet MOLDING MACHINE SETTER.RESIDENTIAL DIRECTOR Work Phone: [facility] 06-19-2023 14:00-0400 Body temperature 97.6 [degF] Dr. Paulo Scott Work Phone: [facility] 06-19-2023 14:00-0400 Diastolic blood pressure 66 mm[Hg] Dr. Paulo Scott Work Phone: [facility] 06-19-2023 14:00-0400 Heart rate 78 /min Dr. Paulo Scott Work Phone: [facility] 06-19-2023 14:00-0400 Respiratory rate 16 /min Dr. Paulo Scott Work Phone: [facility] 06-19-2023 14:00-0400 SaO2% (BldA) [Mass fraction] 99 % Dr. Paulo Scott Work Phone: 2(352)627-990702 [place] [address] 06-19-2023 14:00-0400 Systolic blood pressure 130 mm[Hg] Dr. Paulo Scott Work Phone: 8(396)289-959402 [place] [address] 06-19-2023 12:33-0400 Body height 162.[address] Paulo Scott Work Phone: 0(857)506-538202 [place] [address] 04-23-2023 09:17-0500 Body temperature 98.1 [degF] Dr. Paulo Scott Work Phone: 2(779)015-044602 [place] [address] 04-23-2023 09:17-0500 Diastolic blood pressure 74 mm[Hg] Dr. Paulo Scott Work Phone: 6(277)930-345802 [place] [address] 04-23-2023 09:17-0500 Heart rate 64 /min Dr. Paulo Scott Work Phone: 8(334)806-918702 [place] [address] 04-23-2023 09:17-0500 Respiratory rate 18 /min Dr. Paulo Scott Work Phone: 4(756)438-865102 [place] [address] 04-23-2023 09:17-0500 SaO2% (BldA) [Mass fraction] 94 % Dr. Paulo Scott Work Phone: 1(677)842-082802 [place] [address] 04-23-2023 09:17-0500 Systolic blood pressure 117 mm[Hg] Dr. Paulo Scott Work Phone: 9(469)117-855102 [place] [address] 04-23-2023 07:37-0500 Body height 162.[address] Paulo Scott Work Phone: 3(184)855-308202 [place] [address] 04-23-2023 07:37-0500 Body mass index (BMI) [Ratio] 32.5 kg/m2 Dr. Paulo Scott Work Phone: 3(284)944-549902 [place] [address] 04-23-2023 07:37-0500 Body weight [address] Paulo Scott Work Phone: 5(292)608-152702 [place] [address] 04-14-2023 07:13-0500 Body mass index (BMI) [Ratio] 31.9 kg/m2 Dr. Paulo Scott Work Phone: [facility] 04-14-2023 07:13-0500 Body temperature 98 [degF] Dr. Paulo Scott Work Phone: [facility] 04-14-2023 07:13-0500 Body weight 84.[address] Paulo Scott Work Phone: 6(157)059-189002 [place] [address] 04-14-2023 07:13-0500 Diastolic blood pressure 92 mm[Hg] Dr. Paulo Scott Work Phone: 3(144)585-600176 [place] [address] 04-14-2023 07:13-0500 Heart rate 84 /min Dr. Paulo Scott Work Phone: 7(402)705-393602 [place] [address] 04-14-2023 07:13-0500 Respiratory rate 20 /min Dr. Paulo Scott Work Phone: 2(726)164-460202 [place] [address] 04-14-2023 07:13-0500 SaO2% (BldA) [Mass fraction] 94 % Dr. Paulo Scott Work Phone: 2(615)053-763976 [place] [address] 04-14-2023 07:13-0500 Systolic blood pressure 140 mm[Hg] Dr. Paulo Scott Work Phone: [facility] 02-21-2023 14:03-0500 Body height 162.6 cm Juan Rodriguez MOLDING MACHINE SETTER.AIRPLANE DISPATCHER Work Phone: [facility] 02-21-2023 14:03-0500 Body weight 87.09 kg Juan Rodriguez MOLDING MACHINE SETTER.AIRPLANE DISPATCHER Work Phone: [facility] 02-21-2023 14:03-0500 Diastolic blood pressure 74 mm[Hg] Juan Rodriguez MOLDING MACHINE SETTER.AIRPLANE DISPATCHER Work Phone: [facility] 02-21-2023 14:03-0500 Heart rate 81 /min Juan Rodriguez MOLDING MACHINE SETTER.AIRPLANE DISPATCHER Work Phone: [facility] 02-21-2023 14:03-0500 SaO2% (BldA) [Mass fraction] 97 % Juan Rodriguez MOLDING MACHINE SETTER.AIRPLANE DISPATCHER Work Phone: [facility] 02-21-2023 14:03-0500 Systolic blood pressure 128 mm[Hg] Juan Michael TYLERAIRPLANE DISPATCHER Work Phone: [facility] 01-31-2023 14:47-0500 Body mass index (BMI) [Ratio] 32.4 kg/m2 Dr. Paulo Scott Work Phone: [facility] 01-31-2023 14:47-0500 Body weight 85.[address] Paulo Scott Work Phone: 7(719)709-630776 [place] [address] 01-31-2023 14:47-0500 Diastolic blood pressure 84 mm[Hg] Dr. Paulo Scott Work Phone: 1(639)797-928476 [place] [address] 01-31-2023 14:47-0500 Heart rate 78 /min Dr. Paulo Scott Work Phone: 7(878)623-400676 [place] [address] 01-31-2023 14:47-0500 Respiratory rate 18 /min Dr. Paulo Scott Work Phone: 1(638)990-964276 [place] [address] 01-31-2023 14:47-0500 SaO2% (BldA) [Mass fraction] 93 % Dr. Paulo Scott Work Phone: [facility] 01-31-2023 14:47-0500 Systolic blood pressure 134 mm[Hg] Dr. Paulo Scott Work Phone: [facility] 10-02-2022 12:52-0400 Body height 162.[address] Paulo Scott Work Phone: 6(849)538-808376 [place] [address] 10-02-2022 12:52-0400 Body mass index (BMI) [Ratio] 32.5 kg/m2 Dr. Paulo Scott Work Phone: 7(852)818-453776 [place] [address] 10-02-2022 12:52-0400 Body temperature 97.6 [degF] Dr. Paulo Scott Work Phone: 1(568)387-937176 [place] [address] 10-02-2022 12:52-0400 Body weight 86.[address] Paulo Scott Work Phone: [facility] 10-02-2022 12:52-0400 Diastolic blood pressure 80 mm[Hg] Dr. Paulo Scott Work Phone: [facility] 10-02-2022 12:52-0400 Heart rate 70 /min Dr. Paulo Scott Work Phone: [facility] 10-02-2022 12:52-0400 Respiratory rate 18 /min Dr. Paulo Scott Work Phone: 7(593)588-734676 [place] [address] 10-02-2022 12:52-0400 SaO2% (BldA) [Mass fraction] 97 % Dr. Paulo Scott Work Phone: [facility] 10-02-2022 12:52-0400 Systolic blood pressure 140 mm[Hg] Dr. Paulo Scott Work Phone: 6(587)946-295876 [place] [address] 09-19-2022 15:43-0400 Body temperature 97.3 [degF] Ryan Chicas MD Work Phone: [facility] 09-19-2022 15:43-0400 Body weight 88.45 kg Ryan Chicas MD Work Phone: [facility] 09-19-2022 15:43-0400 Diastolic blood pressure 82 mm[Hg] Ryan Chicas MD Work Phone: [facility] 09-19-2022 15:43-0400 Heart rate 85 /min Ryan Chicas MD Work Phone: [facility] 09-19-2022 15:43-0400 Respiratory rate 16 /min Ryan Chicas MD Work Phone: [facility] 09-19-2022 15:43-0400 SaO2% (BldA) [Mass fraction] 97 % Ryan Chicas MD Work Phone: [facility] 09-19-2022 15:43-0400 Systolic blood pressure 128 mm[Hg] Ryan Chicas MD Work Phone: [facility] 08-05-2022 16:22-0400 Diastolic blood pressure 75 mm[Hg] Dr. Paulo Scott Work Phone: [facility] 08-05-2022 16:22-0400 Heart rate 85 /min Dr. Paulo Scott Work Phone: 0(265)256-810802 [place] [address] 08-05-2022 16:22-0400 Respiratory rate 16 /min Dr. Paulo Scott Work Phone: 1(397)969-665676 [place] [address] 08-05-2022 16:22-0400 SaO2% (BldA) [Mass fraction] 93 % Dr. Paulo Scott Work Phone: 5(631)975-131802 [place] [address] 08-05-2022 16:22-0400 Systolic blood pressure 130 mm[Hg] Dr. Paulo Scott Work Phone: 7(688)621-126702 [place] [address] 08-05-2022 11:31-0400 Body mass index (BMI) [Ratio] 33.3 kg/m2 Dr. Paulo Scott Work Phone: 7(087)152-129002 [place] [address] 08-05-2022 11:31-0400 Body temperature 97.9 [degF] Dr. Paulo Scott Work Phone: 4(370)761-091502 [place] [address] 08-05-2022 11:31-0400 Body weight 87.[address] Paulo Scott Work Phone: 6(198)771-422402 [place] [address] 07-26-2022 13:53-0400 Body mass index (BMI) [Ratio] 33.3 kg/m2 Dr. Paulo Scott Work Phone: 7(981)264-592302 [place] [address] 07-26-2022 13:53-0400 Body weight 87.[address] Paulo Soctt Work Phone: 5(805)594-571802 [place] [address] 07-26-2022 13:53-0400 Diastolic blood pressure 85 mm[Hg] Dr. Paulo Scott Work Phone: 2(660)813-052376 [place] [address] 07-26-2022 13:53-0400 Heart rate 70 /min Dr. Paulo Scott Work Phone: [facility] 07-26-2022 13:53-0400 Respiratory rate 16 /min Dr. Paulo Scott Work Phone: [facility] 07-26-2022 13:53-0400 Systolic blood pressure 147 mm[Hg] Dr. Paulo Scott Work Phone: [facility] 05-17-2022 14:48-0500 Body temperature 98.71 [degF] Paulo Scott MD Work Phone: [facility] 05-17-2022 14:48-0500 Body weight 88 kg Paulo Scott MD Work Phone: [facility] 05-17-2022 14:48-0500 Diastolic blood pressure 82 mm[Hg] Paulo Scott MD Work Phone: [facility] 05-17-2022 14:48-0500 Heart rate 83 /min Paulo Scott MD Work Phone: [facility] 05-17-2022 14:48-0500 Respiratory rate 18 /min Paulo Scott MD Work Phone: [facility] 05-17-2022 14:48-0500 SaO2% (BldA) [Mass fraction] 97 % Paulo Scott MD Work Phone: [facility] 05-17-2022 14:48-0500 Systolic blood pressure 136 mm[Hg] Paulo Scott MD Work Phone: [facility] 05-06-2022 14:28-0500 Body temperature 98.3 [degF] Dr. Paulo Scott Work Phone: [facility] 05-06-2022 14:28-0500 Diastolic blood pressure 70 mm[Hg] Dr. Paulo Scott Work Phone: [facility] 05-06-2022 14:28-0500 Heart rate 68 /min Dr. Paulo Scott Work Phone: 5(822)165-908402 [place] [address] 05-06-2022 14:28-0500 Inhaled oxygen flow rate 98 L/min Dr. Paulo Scott Work Phone: 9(678)232-949002 [place] [address] 05-06-2022 14:28-0500 Respiratory rate 18 /min Dr. Paulo Scott Work Phone: 2(775)325-846802 [place] [address] 05-06-2022 14:28-0500 SaO2% (BldA) [Mass fraction] 98 % Dr. Paulo Scott Work Phone: 3(183)734-190502 [place] [address] 05-06-2022 14:28-0500 Systolic blood pressure 124 mm[Hg] Dr. Paulo Scott Work Phone: 4(499)803-501302 [place] [address] 05-06-2022 04:35-0500 Body weight 89.[address] Paulo Scott Work Phone: 5(258)609-541002 [place] [address] 05-05-2022 19:36-0500 Body height 162.[address] Paulo Scott Work Phone: 0(613)724-213602 [place] [address] 05-05-2022 19:36-0500 Body mass index (BMI) [Ratio] 34.3 kg/m2 Dr. Paulo Scott Work Phone: 8(963)515-749202 [place] [address] 05-05-2022 19:00-0500 Heart rate 87 /min Dr. Paulo Scott Work Phone: 9(022)050-252502 [place] [address] 05-05-2022 17:42-0500 Body temperature 98.7 [degF] Dr. Paulo Scott Work Phone: 6(895)360-042502 [place] [address] 05-05-2022 17:42-0500 Diastolic blood pressure 77 mm[Hg] Dr. Paulo Scott Work Phone: 6(447)707-454002 [place] [address] 05-05-2022 17:42-0500 Respiratory rate 18 /min Dr. Paulo Scott Work Phone: 5(892)354-245802 [place] [address] 05-05-2022 17:42-0500 SaO2% (BldA) [Mass fraction] 100 % Dr. Paulo Scott Work Phone: [facility] 05-05-2022 17:42-0500 Systolic blood pressure 133 mm[Hg] Dr. Paulo Scott Work Phone: [facility] 05-05-2022 12:41-0500 Body height 162.[address] Paulo Scott Work Phone: 2(742)568-201976 [place] [address] 05-05-2022 12:41-0500 Body mass index (BMI) [Ratio] 33.3 kg/m2 Dr. Paulo Scott Work Phone: 3(131)055-854476 [place] [address] 05-05-2022 12:41-0500 Body weight 87.[address] Paulo Scott Work Phone: 4(416)494-609576 [place] [address] 04-26-2022 09:36-0500 Body weight 88 kg Juan Rodriguez MOLDING MACHINE SETTER.AIRPLANE DISPATCHER Work Phone: [facility] 04-26-2022 09:36-0500 Diastolic blood pressure 82 mm[Hg] Juan Rodriguez MOLDING MACHINE SETTER.AIRPLANE DISPATCHER Work Phone: [facility] 04-26-2022 09:36-0500 Heart rate 80 /min Juan Rodriguez MOLDING MACHINE SETTER.AIRPLANE DISPATCHER Work Phone: [facility] 04-26-2022 09:36-0500 Respiratory rate 16 /min Juan Rodriguez MOLDING MACHINE SETTER.AIRPLANE DISPATCHER Work Phone: [facility] 04-26-2022 09:36-0500 Systolic blood pressure 126 mm[Hg] Juan Rodriguez MOLDING MACHINE SETTER.AIRPLANE DISPATCHER Work Phone: [facility] 04-24-2022 19:56-0500 Diastolic blood pressure 90 mm[Hg] Dr. Paulo Scott Work Phone: [facility] 04-24-2022 19:56-0500 Heart rate 61 /min Dr. Paulo Scott Work Phone: [facility] 04-24-2022 19:56-0500 Respiratory rate 17 /min Dr. Paulo Scott Work Phone: 0(589)006-708002 [place] [address] 04-24-2022 19:56-0500 SaO2% (BldA) [Mass fraction] 97 % Dr. Paulo Scott Work Phone: 2(269)400-751302 [place] [address] 04-24-2022 19:56-0500 Systolic blood pressure 158 mm[Hg] Dr. Paulo Scott Work Phone: 5(281)386-056902 [place] [address] 04-24-2022 14:37-0500 Body height 162.[address] Paulo Scott Work Phone: 5(186)303-886202 [place] [address] 04-24-2022 14:37-0500 Body mass index (BMI) [Ratio] 34.3 kg/m2 Dr. Paulo Scott Work Phone: 6(238)794-489902 [place] [address] 04-24-2022 14:37-0500 Body temperature 98.3 [degF] Dr. Paulo Scott Work Phone: 5(179)894-718502 [place] [address] 04-24-2022 14:37-0500 Body weight 90.[address] Paulo Scott Work Phone: 0(191)836-982802 [place] [address] 04-03-2022 06:25-0500 Body mass index (BMI) [Ratio] 33.6 kg/m2 Dr. Paulo Scott Work Phone: 5(495)103-960302 [place] [address] 04-03-2022 06:25-0500 Body temperature 98.1 [degF] Dr. Paulo Scott Work Phone: 2(285)146-373502 [place] [address] 04-03-2022 06:25-0500 Body weight 88.[address] Paulo Scott Work Phone: 6(379)102-029002 [place] [address] 04-03-2022 06:25-0500 Diastolic blood pressure 73 mm[Hg] Dr. Paulo Scott Work Phone: 4(897)799-457802 [place] [address] 04-03-2022 06:25-0500 Heart rate 78 /min Dr. Paulo Scott Work Phone: 2(083)288-317002 [place] [address] 04-03-2022 06:25-0500 Respiratory rate 16 /min Dr. Paulo Scott Work Phone: [facility] 04-03-2022 06:25-0500 SaO2% (BldA) [Mass fraction] 94 % Dr. Paulo Scott Work Phone: [facility] 04-03-2022 06:25-0500 Systolic blood pressure 126 mm[Hg] Dr. Paulo Scott Work Phone: [facility] 09-18-2021 11:55-0400 Body height 162.[address] Paulo Scott Work Phone: [facility] Work Phone: 09-18-2021 11:55-0400 Body mass index (BMI) [Ratio] 33.3 kg/m2 Dr. Paulo Scott Work Phone: [facility] Work Phone: 09-18-2021 11:55-0400 Body temperature 98.7 [degF] Dr. Paulo Scott Work Phone: [facility] Work Phone: 09-18-2021 11:55-0400 Body weight 87.[address] Paulo Scott Work Phone: [facility] Work Phone: 09-18-2021 11:55-0400 Diastolic blood pressure 83 mm[Hg] Dr. Paulo Scott Work Phone: [facility] Work Phone: 09-18-2021 11:55-0400 Heart rate 81 /min Dr. Paulo Scott Work Phone: [facility] Work Phone: 09-18-2021 11:55-0400 Respiratory rate 16 /min Dr. Paulo Scott Work Phone: [facility] Work Phone: 09-18-2021 11:55-0400 SaO2% (BldA) [Mass fraction] 96 % Dr. Paulo Scott Work Phone: [facility] Work Phone: 09-18-2021 11:55-0400 Systolic blood pressure 140 mm[Hg] Dr. Paulo Scott Work Phone: [facility] Work Phone: 08-23-2021 16:52-0400 Body weight 87.73 kg Paulo Scott MD Work Phone: [facility] 08-23-2021 16:52-0400 Diastolic blood pressure 74 mm[Hg] Paulo Scott MD Work Phone: [facility] 08-23-2021 16:52-0400 Heart rate 75 /min Paulo Scott MD Work Phone: [facility] 08-23-2021 16:52-0400 Respiratory rate 16 /min Paulo Scott MD Work Phone: [facility] 08-23-2021 16:52-0400 SaO2% (BldA) [Mass fraction] 99 % Paulo Scott MD Work Phone: [facility] 08-23-2021 16:52-0400 Systolic blood pressure 126 mm[Hg] Paulo Scott MD Work Phone: [facility] 08-06-2021 10:38-0400 Body mass index (BMI) [Ratio] 33.5 kg/m2 Dr. Paulo Scott Work Phone: [facility] Work Phone: 08-06-2021 10:38-0400 Body temperature 97.2 [degF] Dr. Paulo Scott Work Phone: [facility] Work Phone: 08-06-2021 10:38-0400 Body weight 88.[address] Paulo Scott Work Phone: [facility] Work Phone: 05-23-2022 10:38-0400 Diastolic blood pressure 79 mm[Hg] Dr. Paulo Scott Work Phone: [facility] Work Phone: 08-06-2021 10:38-0400 Heart rate 79 /min Dr. Paulo Scott Work Phone: [facility] Work Phone: 08-06-2021 10:38-0400 Respiratory rate 16 /min Dr. Paulo Scott Work Phone: [facility] Work Phone: 08-06-2021 10:38-0400 SaO2% (BldA) [Mass fraction] 94 % Dr. Paulo Scott Work Phone: [facility] Work Phone: 08-06-2021 10:38-0400 Systolic blood pressure 122 mm[Hg] Dr. Paulo Scott Work Phone: [facility] Work Phone: Encounters Encounter Date Encounter Type Care Provider Facility Start: 06-18-2024 End: 06-18-2024 ambulatory Raul Casper [place] [place]: 06-18-2024 End: 06-18-2024 ambulatory Paulo Scott [place] [place] Start: 05-26-2024 End: 05-26-[address] Paulo Scott MD Work Phone: [facility] Work Phone: Start: 05-26-2024 End: 05-26-[address] Crystal Paz MD -Radiology, [facility] Work Phone: Start: 05-26-2024 End: 05-26-2024 ambulatory Paulo Scott Facility:[facility] Start: 05-21-2024 End: 05-21-2024 ambulatory [facility] Facility:[facility] Start: 05-21-2024 End: 05-21-2024 Office outpatient visit 25 minutes Juan Casass MOLDING MACHINE SETTER.AIRPLANE DISPATCHER Work Phone: [facility] [place] Comment on above: Acquired hypothyroid ism (Primary Dx); Primary hypertension; Mixed hyperlipidemia; Chronic pain of left knee; Chronic bilateral low back pain with bilateral sciatica; Encounter for immunization Start: 04-16-2024 End: 04-16-[address] Callum Trimble DO [facility] Work Phone: Start: 04-16-2024 End: 04-16-2024 ambulatory Paulo Chavo Amadorampas Facility:[facility] Start: 04-09-2024 End: 04-09-[address] Callum Trimble DO [facility] Work Phone: Start: 04-09-2024 End: 04-09-2024 ambulatory Paulo D Talampas Facility:[facility] Start: 04-08-2024 End: 04-08-2024 Patient encounter procedure Raul Casper [facility] Work Phone: Start: 04-08-2024 End: 04-08-2024 ambulatory Raul Casper Facility:[facility] Start: 04-02-2024 End: 04-02-[address] Callum Trimble DO [facility] Work Phone: Start: 04-02-2024 End: 04-02-2024 ambulatory Paulo D [place]ampas Facility:[facility] Start: 03-12-2024 End: 03-12-[address] Callum Trimble DO [facility] Work Phone: Start: 03-12-2024 End: 03-12-2024 ambulatory Paulo D Talampas Facility:[facility] Start: 03-05-2024 End: 03-05-2024 ambulatory PAULO Chavo TALAMPAS Facility:[facility] Start: 03-05-2024 End: 03-05-2024 Subsequent hospital visit by physician [facility] Comment on above: Encounter for screen ing mammogram for breast cancer [Z12.31] Start: 02-22-2024 End: 02-27-2024 Refill Paulo Scott MD Work Phone: [facility] [place] Comment on above: Refill Request Start: 02-20-2024 End: 02-20-2024 Patient encounter procedure Raul Casper [facility] Work Phone: Start: 02-20-2024 End: 02-20-2024 Refill Juan Rodriguez AIRPLANE DISPATCHER Work Phone: [facility] [place] Comment on above: Refill Request Start: 02-11-2024 End: 02-11-2024 Refill Paulo Scott MD Work Phone: [facility] [place] Comment on above: Refill Request Start: 01-30-2024 End: 01-30-2024 ambulatory Paulo Chavo Scott Facility:[facility] Start: 01-23-2024 End: 01-23-2024 Patient encounter procedure Norman Garcia MOLDING MACHINE SETTER.RESIDENTIAL DIRECTOR Work Phone: [facility] [place] Comment on above: Acute cough (Primary Dx); Acquired hypothyroidism; Spinal stenosis of lumbar region, unspecified whether neurogenic claudication present; Primary hypertension; Mixed hyperlipidemia; Vitamin D deficiency; Diet-controlled diabetes mellitus (HCC); Screening for depression Start: 01-23-2024 End: 01-23-2024 ambulatory NORMAN GARCIA Facility:[facility] Start: 01-23-2024 End: 01-23-2024 ambulatory Paulo Chavo Amador[place]ptameka Facility:[facility] Start: 01-16-2024 End: 01-16-2024 ambulatory Paulo Chavo [place] Facility:[facility] Start: 12-26-2023 End: 12-26-2023 ambulatory Paulo Chavo [place] Facility:[facility] Start: 12-24-2023 End: 12-24-2023 Refill Paulo Scott MD Work Phone: [facility] [place] Comment on above: Refill Request Start: 12-01-2023 End: 12-01-2023 ambulatory Paulo Chavo Scott Facility:[facility] Start: 11-28-2023 End: 11-28-2023 ambulatory PAULO D ТАТЬЯНАAMPTAMEKA Facility:[facility] Start: 11-18-2023 End: 11-18-2023 Emergency department patient visit Paulo Scott Facility:[facility] Start: 11-11-2023 End: 11-11-2023 Refill Paulo Scott MD Work Phone: [facility] [place] Comment on above: Refill Request Start: 10-17-2023 Telephone encounter Paulo hardwick MD Work Phone: [facility] [place] Comment on above: Future Appointment Start: 10-17-2023 End: 10-17-2023 ambulatory [facility] Facility:[facility] Start: 10-17-2023 End: 10-17-2023 Office outpatient visit 15 minutes Juan Rodriguez MOLDING MACHINE SETTER.AIRPLANE DISPATCHER Work Phone: [facility] [place] Comment on above: External hemorrhoid (Primary Dx) Start: 10-15-2023 End: 10-15-2023 ambulatory Paulo Scott MD Work Phone: Internal Medicine [facility] Start: 09-22-2023 Telephone encounter Paulo hardwick MD Work Phone: [facility] [place] Comment on above: Medication Problem Start: 09-17-2023 End: 09-17-2023 ambulatory PUALO SCOTT Facility:[facility] Start: 09-17-2023 End: 09-17-2023 Office outpatient visit 25 minutes Paluo Scott MD Work Phone: [facility] [place] Comment on above: DDD (degenerative di sc disease), lumbar (Primary Dx); Protrusion of lumbar intervertebral disc; Spinal stenosis of lumbar region, unspecified whether neurogenic claudication present; Vertigo; Anxiety; Primary hypertension; Mixed hyperlipidemia; Vitamin D deficiency; IFG (impaired fasting glucose); Encounter for long-term current use of medication Start: 08-29-2023 End: 08-29-2023 [facility] Facility:[facility] Start: 08-21-2023 Refill Paulo lockett MD Work Phone: [facility] [place] Comment on above: Refill Request Start: 08-15-2023 End: 08-15-2023 ambulatory Paulo Scott Facility:[facility] Start: 07-24-2023 End: 07-24-2023 ambulatory Carlin Grover Facility:[facility] Start: 07-22-2023 End: 07-22-2023 Subsequent hospital visit by physician Shakir [facility] Work Phone: Radiology Comment on above: Acute pain of both k nees [M25.561, M25.562] Start: 07-22-2023 End: 07-22-2023 ambulatory PAULO SCOTT Facility:[facility] Start: 07-22-2023 End: 07-22-2023 Patient encounter procedure Clifford Lozano PA Work Phone: [facility] Comment on above: Acute pain of both k nees (Primary Dx) Start: 07-04-2023 Telephone encounter Paulo hardwick MD Work Phone: [facility] [place] Comment on above: Insurance Authorizat ion Start: 07-04-2023 End: 07-04-2023 ambulatory NORMAN GARCIA Facility:[facility] Start: 07-04-2023 End: 07-04-2023 Patient encounter procedure Norman Garcia MOLDING MACHINE SETTER.RESIDENTIAL DIRECTOR Work Phone: [facility] [place] Comment on above: Strain of lumbar reg ion, subsequent encounter (Primary Dx); Chronic bilateral low back pain with bilateral sciatica Start: 07-03-2023 End: 07-03-2023 ambulatory [facility] [place] [place] Start: 07-03-2023 E-mail encounter fro m caregiver [facility] Start: 07-03-2023 Patient encounter procedure [facility] [place] Comment on above: appointment cancella tion Start: 06-19-2023 End: 06-19-2023 Emergency department patient visit Dr. Paulo Scott Work Phone: [facility] Work Phone: Start: 04-28-2023 Refill Juan Rodriguez APRN.AIRPLANE DISPATCHER Work Phone: [facility] [place] Comment on above: Refill Request Start: 04-23-2023 Non-patient / Non-visit Dr. Octavia Scott Work Phone: [facility] Start: 04-23-2023 End: 04-23-2023 Admission to same day surgery center Dr. Paulo Scott Work Phone: [facility] Work Phone: Start: 04-23-2023 End: 04-23-[address] Paulo Scott Work Phone: [facility] Work Phone: Start: 04-14-2023 End: 04-14-[address] [facility] Work Phone: Start: 03-05-2023 End: 03-05-[address] Paulo Scott Work Phone: [facility] Work Phone: Start: 02-21-2023 End: 02-21-2023 Office outpatient visit 25 minutes Juan Rodriguez APRN.AIRPLANE DISPATCHER Work Phone: [facility] [place] Comment on above: Acquired hypothyroid ism (Primary Dx); Essential hypertension; Chronic bilateral low back pain with bilateral sciatica; Elevated glucose; Mixed hyperlipidemia; Encounter for immunization; Vertigo; Anxiety Start: 02-17-2023 Telephone encounter Juan godinez MOLDING MACHINE SETTER.AIRPLANE DISPATCHER Work Phone: [facility] [place] Comment on above: Lab Orders Start: 02-12-2023 Refill Paulo lockett MD Work Phone: Internal [facility] [place] Comment on above: Refill Request Start: 01-31-2023 End: 01-31-[address] Paulo Scott Work Phone: [facility] Work Phone: Start: 11-06-2022 Telephone encounter Paulo hardwick MD Work Phone: [facility] [place] Comment on above: Patient Update Start: 10-26-2022 Refill Norman Garcia MOLDING MACHINE SETTER.RESIDENTIAL DIRECTOR Work Phone: [facility] [place] Comment on above: Refill Request Start: 10-17-2022 End: 10-17-[address] Paulo Scott Work Phone: [facility] Work Phone: Start: 10-17-2022 End: 10-17-[address] [facility] Start: 10-15-2022 End: 10-15-[address] Paulo Scott Work Phone: [facility] Work Phone: Start: 10-15-2022 End: 10-15-[address] Paulo Scott Work Phone: [facility]Labor[facility], Specimen Work Phone: Start: 10-02-2022 End: 10-02-[address] [facility] Work Phone: Start: 09-27-2022 End: 09-27-[address] Paulo Scott Work Phone: [facility] Work Phone: Start: 09-24-2022 Refill Norman Garcia APRN.RESIDENTIAL DIRECTOR Work Phone: [facility] [place] Comment on above: Refill Request Start: 09-19-2022 End: 09-19-2022 Patient encounter procedure Ryan Chicas MD Work Phone: [facility] Comment on above: Rash (Primary Dx); Intertrigo Start: 09-18-2022 Refill Paulo lockett MD Work Phone: [facility] [place] Comment on above: Refill Request Start: 09-16-2022 Documentation procedure Mammog annalisa Coordinator [facility] Start: 09-16-2022 Letter encounter Mammography Coordinator [facility] Department Start: 09-13-2022 End: 09-13-2022 Subsequent hospital visit by physician Screen Mammo [facility] Comment on above: Encounter for screen ing mammogram for breast cancer [Z12.31] Start: 09-09-2022 Refill Paulo lockett MD Work Phone: [facility] [place] Comment on above: Refill Request Start: 08-19-2022 Telephone encounter Paulo hardwick MD Work Phone: [facility] [place] Comment on above: Rx transferred to [facility] Start: 08-05-2022 End: 08-05-2022 Emergency department patient visit Dr. Paulo Scott Work Phone: [facility] Work Phone: Start: 07-30-2022 Refill Norman Garcia MOLDING MACHINE SETTER.RESIDENTIAL DIRECTOR Work Phone: Internal [facility] Comment on above: Refill Request Start: 07-26-2022 End: 07-26-[address] Paulo Scott Work Phone: [facility] Work Phone: Start: 06-10-2022 Telephone encounter Paulo hardwick MD Work Phone: [facility] [place] Comment on above: Opened In Error Start: 05-22-2022 Telephone encounter Paulo hardwick MD Work Phone: [facility] [place] Comment on above: OT Update Start: 05-21-2022 Refill Norman Garcia MOLDING MACHINE SETTER.RESIDENTIAL DIRECTOR Work Phone: [facility] [place] Comment on above: Refill Request Start: 05-17-2022 End: 05-17-2022 Office outpatient visit 25 minutes Paulo Scott MD Work Phone: [facility] [place] Comment on above: Pain in both lower e xtremities (Primary Dx); Bilateral leg edema; Imbalance; Cold sore Start: 05-09-2022 Telephone encounter Paulo hardwick MD Work Phone: [facility] [place] Comment on above: [facility] HH, OT update/ve rbal order Start: 05-07-2022 Telephone encounter Paulo hardwick MD Work Phone: [facility] [place] Comment on above: [facility], PT, plan of care; FYI-No Action Needed Start: 05-06-2022 Non-patient / Non-visit Dr. Octavia Scott Work Phone: [facility] Start: 05-05-2022 Non-patient / Non-visit Dr. Octavia Scott Work Phone: [facility] Start: 05-05-2022 End: 05-06-2022 Evaluation and management of inpatient Dr. Paulo Scott Work Phone: [facility]Medical Surgical 3 Start: 05-05-2022 End: 05-06-[address] Paulo Scott Work Phone: [facility] Work Phone: Start: 04-26-2022 End: 04-26-2022 Office outpatient visit 25 minutes Juan Rodriguez APRN.AIRPLANE DISPATCHER Work Phone: [facility] [place] Comment on above: Submandibular lympha denopathy (Primary Dx); Primary hypertension; Throat pain Start: 04-24-2022 End: 04-24-2022 Emergency department patient visit Dr. Paulo Scott Work Phone: [facility] Start: 04-24-2022 ambulatory Paulo lockett MD Work Phone: [facility] [place] Comment on above: Face Swelling Start: 04-03-2022 End: 04-03-[address] Paulo Scott Work Phone: [facility] Start: 03-19-2022 Refill Norman Garcia APRN.RESIDENTIAL DIRECTOR Work Phone: [facility] [place] Comment on above: Refill Request Start: 02-25-2022 Telephone encounter Paulo hardwick MD Work Phone: [facility] [place] Comment on above: Results Start: 02-19-2022 Refill Paulo lockett MD Work Phone: [facility] [place] Comment on above: Refill Request Start: 12-07-2021 End: 12-07-2021 ambulatory Mi Nurse Work Phone: [facility] [place] Start: 11-01-2021 Refill Paulo lockett MD Work Phone: [facility] [place] Comment on above: Refill Request Start: 10-04-2021 Telephone encounter Paulo hardwick MD Work Phone: [facility] [place] Comment on above: Patient Question Start: 09-18-2021 End: 09-18-2021 Emergency department patient visit Dr. Paulo Scott Work Phone: [facility] Start: 08-31-2021 Telephone encounter Paulo hardwick MD Work Phone: [facility] [place] Comment on above: Medication Problem Start: 08-23-2021 End: 08-23-2021 Office outpatient visit 25 minutes Paulo Scott MD Work Phone: [facility] [place] Comment on above: Acquired hypothyroid ism (Primary Dx); IFG (impaired fasting glucose); Vitamin D deficiency; Essential hypertension; Vertigo; OAB (overactive bladder); Dysphagia, unspecified type; Anxiety Start: 08-22-2021 ambulatory Paulo lockett MD Work Phone: [facility] [place] Start: 08-06-2021 End: 08-06-[address] [facility] Start: 05-25-2021 End: 05-25-[address] Paulo Scott [facility] Start: 12-15-2020 End: 12-15-2020 Subsequent hospital visit by physician [facility] Work Phone: Radiology Comment on above: Acute pain of right shoulder [M25.511] Start: 08-30-2020 End: 08-30-2020 Subsequent hospital visit by physician Xr [facility] Work Phone: Radiology Comment on above: Trigger middle finge r of right hand [M65.331] Start: 07-22-2020 End: 07-22-2020 Subsequent hospital visit by physician Quoc Diaz MD Work Phone: [facility] Comment on above: Family history of co thom cancer; Family history of gene mutation; Personal history of colonic polyps Start: 07-11-2020 End: 07-11-2020 Subsequent hospital visit by physician [facility]r [facility] Work Phone: Radiology Comment on above: Back pain of thoraco lumbar region [M54.5, M54.6] Procedures Date Procedure Procedure Detail Performing Clinician Start: 05-26-2024 Plain X-ray of shoulder Dr. Paulo lockett MD Work Phone: Start: 04-08-2024 MRI of small intestine Dr. Paulo Scott MD Work Phone: Start: 03-12-2024 X-ray of knee, four or more views Dr. Paulo Scott MD Work Phone: Start: 01-23-2024 Adult depression screening assessment Norman Garcia APRN.CNP Work Phone: Start: 11-28-2023 Lipid 1996 panel - Serum or Plasma [facility] [place] Work Phone: Start: 08-29-2023 Lipid 1996 panel - Serum or Plasma Paulo Scott MD Work Phone: Start: 07-22-2023 Radiologic exam knee complete 4/more views Clifford CASTANEDA Work Phone: Start: 06-19-2023 CT of lumbar spine Dr. Paulo Scott Work Phone: Start: 04-23-2023 End: 04-23-[address] Paulo Scott Work Phone: Start: 02-19-2023 Lipid 1996 panel - Serum or Plasma Juan Rodriguez APRN.AIRPLANE DISPATCHER Work Phone: Start: 10-17-[address] Paulo Scott Work Phone: Start: 10-17-[address] Paulo lockett Work Phone: Start: 10-17-[address] Paulo Scott Work Phone: Start: 09-13-2022 End: 09-13-2022 Mammography Bulk Order Provider Start: 08-28-2022 Lipid 1996 panel - Serum or Plasma Screen [facility] Start: 08-05-[address] Diagnostic radiography of abdomen Dr. Paulo Scott Work Phone: Start: 05-05-2022 Radiologic examination of knee Dr. Paulo Scott Work Phone: Start: 04-24-2022 CT of soft tissues of neck with contrast Dr. Paulo Scott Work Phone: Start: 12-07-2021 INFLUENZA SEASONAL QUADRIVALENT HIGH DOSE AGE 65+ Paulo Scott MD Work Phone: Start: 08-23-2021 Adult depression screening assessment Paulo Scott MD Work Phone: Start: 05-25-[address] Paulo Scott Work Phone: Start: 12-15-2020 Radex shoulder complete minimum 2 views Paulo Scott MD Work Phone: Start: 08-30-2020 Radex hand minimum 3 views Juan Rodriguez APRN.AIRPLANE DISPATCHER Work Phone: Start: 07-21-2020 Mammography Paulo Scott MD Work Phone: Start: 07-11-2020 Radex spine lumbosacral 2/3 views Paulo Scott MD Work Phone: Start: 07-11-2019 History of cholecystectomy S/P laparoscopic cholecystectomy Paulo Scott MD Work Phone: Start: 01-15-2015 Colonoscopy Paulo Scott MD Work Phone: Plan of Treatment Date Care Activity Detail Author Start: 04-23-2030 Screening for malign ant neoplasm of colon [facility] Start: 11-27-2028 Lipid panel Lipid Screening [facility] Start: 08-28-2028 Lipid panel Lipid Screening [facility] Start: 02-20-2028 Lipid 1996 panel - S ana or Plasma Lipid Screening [facility] Start: 02-20-2028 Lipid panel Lipid Screening [facility] Start: 08-29-2027 Lipid 1996 panel - S ana or Plasma Lipid Screening [facility] Start: 08-29-2027 LIPID SCREEN LIPID SCREEN [facility] Start: 11-27-2026 Diabetes Screening Diabetes Screenin g [facility] Start: 08-28-2026 [facility] Start: 08-04-2026 LIPID SCREEN LIPID SCREEN [facility] Start: 02-19-2026 [facility] Start: 08-28-2025 DIABETES SCREEN DIABETES SCREEN [facility] Start: 08-28-2025 Diabetes Screening Diabetes Screenin g [facility] Start: 05-21-2025 BP Controlled (<130/80) BP Controlle d (<130/80) [facility] Start: 05-21-2025 Covid-19 Vaccine () Covid-19 Vaccine () [facility] Comment on above: Postponed from 11/15 (Declined at this time) Start: 03-05-2025 Screening for malign ant neoplasm of breast Mammogram Screening [facility] Start: 03-04-2025 End: 03-04-2025 Patient encounter procedure 03/04/2025 3:20 PM EST Office Visit [facility] [place] [address] [place] [address] Paulo Scott MD [address] [place] [address] 4 month f/u [facility] [place] Comment on above: 4 month f/u Start: 2025 RSV Vaccine (1 - 1-d ose 75+ series) RSV Vaccine (1 - 1-dose 75+ series) [facility] Start: 02-15-2025 DIABETES SCREEN DIABETES SCREEN [facility] Start: 01-22-2025 Annual PCP Team Administrative Technician gregorio Disease Visit Annual PCP Team Chronic Disease Visit [facility] Start: 01-22-2025 BP Controlled (<130/80) BP Controlle d (<130/80) [facility] Start: 01-22-2025 Depression Screening Depression Scre ening [facility] Start: 11-27-2024 Hepatitis B surface antibody level LDL Cholesterol [facility] Start: 10-16-2024 BP Controlled (<130/80) BP Controlle d (<130/80) [facility] Start: 09-24-2024 End: 09-24-2024 Patient encounter procedure 09/24/2024 10:40 AM EDT Office Visit [facility] [place] [address] [place] [address] Juan Rodriguez APRN.AIRPLANE DISPATCHER [address] [place] [address] 4 month f/u [facility] [place] Comment on above: 4 month f/u Start: 09-16-2024 Annual PCP Team Administrative Technician gregorio Disease Visit Annual PCP Team Chronic Disease Visit [facility] Start: 09-16-2024 BP Controlled (<130/80) BP Controlle d (<130/80) [facility] Start: 09-13-2024 Influenza vaccination Influenza Vacc ine (#1) [facility] Comment on above: Postponed from 11/15 (Declined at this time) Start: 08-28-2024 Hepatitis B surface antibody level LDL Cholesterol [facility] Start: 08-04-2024 DIABETES SCREEN DIABETES SCREEN [facility] Start: 07-03-2024 Annual PCP Team Administrative Technician gregorio Disease Visit Annual PCP Team Chronic Disease Visit [facility] Start: 05-21-2024 End: 05-21-2024 Patient encounter procedure 05/21/2024 1:40 PM EST Office Visit [facility] [place] [address] [place] [address] Paulo Scott MD [address] [place] [address] 4 month follow up [facility] [place] Comment on above: 4 month follow up Start: 04-08-2024 Following clinical p athway protocol [facility] Start: 03-05-2024 End: 03-05-2024 Patient encounter procedure 03/05/2024 1:30 PM EST Appointment Mammogram [address] [place] [address] [facility] prev here Mammogram Comment on above: [facility] Scre[facility] prev here Start: 02-22-2024 BP Controlled (<130/80) BP Controlle d (<130/80) [facility] Start: 02-20-2024 Hepatitis B surface antibody level LDL Cholesterol [facility] Start: 01-23-2024 End: 01-23-2024 Patient encounter procedure 01/23/2024 1:20 PM EST Office Visit [facility] [address] [place] [address] Norman Garcia APRN.RESIDENTIAL DIRECTOR [address] [place], [place] [address] 4 month follow up [facility] [place] Comment on above: 4 month follow up Start: 12-18-2023 End: 03-18-2024 25-hydroxyvitamin D3 [Mass/volume] in Serum or Plasma VITAMIN D 25 HYDROXY Lab Routine Vitamin D deficiency Encounter for long-term current use of medication Expected: 12/18/2023 (Approximate), Expires: 03/18/2024 [facility] Comment on above: Expected: 12/18/2023 (Approximate), Expires: 03/18/2024 Start: 12-18-2023 End: 03-18-2024 Comprehensive metabolic 2000 panel - Serum or Plasma COMPREHENSIVE METABOLIC PANEL Lab Routine IFG (impaired fasting glucose) Encounter for long-term current use of medication Expected: 12/18/2023 (Approximate), Expires: 03/18/2024 [facility] Comment on above: Expected: 12/18/2023 (Approximate), Expires: 03/18/2024 Start: 12-18-2023 End: 03-18-2024 Hemoglobin A1c in Blood HEMOGLOBIN A1C Lab Routine IFG (impaired fasting glucose) Encounter for long-term current use of medication Expected: 12/18/2023 (Approximate), Expires: 03/18/2024 [facility] Work Phone: Comment on above: Expected: 12/18/2023 (Approximate), Expires: 03/18/2024 Start: 12-18-2023 End: 03-18-2024 Lipid 1996 panel - Serum or Plasma LIPID PANEL BASIC Lab Routine Encounter for long-term current use of medication Expected: 12/18/2023 (Approximate), Expires: 03/18/2024 [facility] Comment on above: Expected: 12/18/2023 (Approximate), Expires: 03/18/2024 Start: 12-18-2023 End: 03-18-2024 TOXICOLOGY SCREEN, ROUTINE URINE TOXICOLOGY SCREEN, ROUTINE URINE Lab Routine Encounter for long-term current use of medication Expected: 12/18/2023 (Approximate), Expires: 03/18/2024 [facility] Comment on above: Expected: 12/18/2023 (Approximate), Expires: 03/18/2024 Start: 11-16-2023 Covid-19 Vaccine ( season) Covid-19 Vaccine ( season) [facility] Start: 11-16-2023 Covid-19 Vaccine ( season) Covid-19 Vaccine ( season) [facility] Start: 11-16-2023 Influenza vaccination [facility] Start: 09-17-2023 End: 09-17-2023 Patient encounter procedure 09/17/2023 1:40 PM EDT Office Visit [facility] [place] [address] [place] [id number] Paulo Scott MD [address] [place] [id number] 6 Month follow up [facility] [place] Comment on above: 6 Month follow up Start: 09-14-2023 Mammography [facility] Start: 09-14-2023 Screening for malign ant neoplasm of breast Mammogram Screening [facility] Start: 09-07-2023 SHINGRIX VACCINE (2 of 3) GALICIA GRIX VACCINE (2 of 3) [facility] Comment on above: Postponed from 05/01 (Declined at this time) Start: 08-29-2023 Hepatitis B surface antibody level LDL CHOLESTEROL [facility] Start: 08-11-2023 End: 02-13-2024 CBC W Auto Differential panel - Blood CBC + DIFF Lab Routine Essential hypertension Expected: 08/11/2023 (Approximate), Expires: 02/13/2024 [facility] Work Phone: Comment on above: Expected: 08/11/2023 (Approximate), Expires: 02/13/2024 Start: 08-11-2023 End: 02-13-2024 Comprehensive metabolic 2000 panel - Serum or Plasma COMP METABOLIC PANEL Lab Routine Mixed hyperlipidemia Essential hypertension Expected: 08/11/2023 (Approximate), Expires: 02/13/2024 [facility] Work Phone: Comment on above: Expected: 08/11/2023 (Approximate), Expires: 02/13/2024 Start: 08-11-2023 End: 02-13-2024 Hemoglobin A1c in Blood HGB A1C Lab Routine Elevated glucose Expected: 08/11/2023 (Approximate), Expires: 02/13/2024 [facility] Work Phone: Comment on above: Expected: 08/11/2023 (Approximate), Expires: 02/13/2024 Start: 08-11-2023 End: 02-13-2024 Lipid 1996 panel - Serum or Plasma LIPID PANEL BASIC Lab Routine Mixed hyperlipidemia Expected: 08/11/2023 (Approximate), Expires: 02/13/2024 [facility] Work Phone: Comment on above: Expected: 08/11/2023 (Approximate), Expires: 02/13/2024 Start: 08-11-2023 End: 02-13-2024 Thyrotropin [Units/volume] in Serum or Plasma TSH BLD Lab Routine Acquired hypothyroidism Expected: 08/11/2023 (Approximate), Expires: 02/13/2024 [facility] Work Phone: Comment on above: Expected: 08/11/2023 (Approximate), Expires: 02/13/2024 Start: 06-19-2023 [facility] Start: 05-18-2023 ANNUAL PCP TEAM HEALTH ADVISOR GREGORIO DISEASE VISIT ANNUAL PCP TEAM CHRONIC DISEASE VISIT [facility] Start: 04-26-2023 BP CONTROLLED (<130/80) BP CONTROLLE D (<130/80) [facility] Start: 04-23-2023 Colsc flx w/rmvl of tumor polyp lesion snare tq COLONOSCOPY W/LESION REMOVAL [facility] Start: 04-23-2023 Egd transoral biopsy single/multiple EGD BIOPSY SINGLE/MULTIPLE [facility] Start: 04-23-2023 Patient discharge [facility] Start: 04-17-2023 COLORECTAL CANCER SCREENING COLORECTAL CANCER SCREENING [facility] Comment on above: Postponed from 02/26 (Declined at this time) Start: 03-17-2023 Advance Directive Discussion Advance Directive Discussion [facility] Start: 03-17-2023 Behavioral Health Screening Behavioral Health Screening [facility] Start: 03-17-2023 Depression Assessment Depression Ass essment [facility] Start: 03-01-2023 FECAL OCCULT BLOOD FECAL OCCULT BLOO D [facility] Start: 03-01-2023 Screening for malign ant neoplasm of colon Fecal Occult Blood [facility] Start: 02-22-2023 ANNUAL PCP TEAM HEALTH ADVISOR GREGORIO DISEASE VISIT ANNUAL PCP TEAM CHRONIC DISEASE VISIT [facility] Start: 02-22-2023 COVID-19 VACCINE (3 - Booster for Pfizer series) COVID-19 VACCINE (3 - Booster for Pfizer series) [facility] Comment on above: Postponed from 10/20 (Declined at this time) Start: 02-22-2023 COVID-19 VACCINE (3 - Pfizer series) COVID-19 VACCINE (3 - Pfizer series) [facility] Comment on above: Postponed from 10/20 (Declined at this time) Start: 11-15-2022 Covid-19 Vaccine ( season) Covid-19 Vaccine ( season) [facility] Start: 11-15-2022 Influenza vaccination C [facility] Start: 10-17-2022 Elastase, pancreatic (el-1), fecal; quantitative [facility] Start: 10-17-2022 Procedure [facility] Start: 10-17-2022 [facility] Start: 09-19-2022 End: 11-19-2022 Herpes simplex virus+Varicella zoster virus DNA [Presence] in Unspecified specimen by ELIN with probe detection [facility] Work Phone: Comment on above: Expected: 09/19/2022 , Expires: 11/19/2022 Start: 08-23-2022 Adult depression scr eening assessment DEPRESSION SCREENING [facility] Start: 08-23-2022 ANNUAL PCP TEAM HEALTH ADVISOR GREGORIO DISEASE VISIT ANNUAL PCP TEAM CHRONIC DISEASE VISIT [facility] Start: 08-23-2022 BP CONTROLLED (<130/80) BP CONTROLLE D (<130/80) [facility] Start: 08-23-2022 SHINGRIX VACCINE (2 of 3) GALICIA GRIX VACCINE (2 of 3) [facility] Comment on above: Postponed from 05/01 (Declined at this time) Start: 08-23-2022 Urine microalbumin profile DTAP,TDAP ,TD (1 - Tdap) [facility] Comment on above: Postponed from 11/18 (Declined at this time) Start: 08-04-2022 Hepatitis B surface antibody level LDL CHOLESTEROL [facility] Start: 05-06-2022 Referral to service [facility] Start: 05-06-2022 Patient discharge [facility] Start: 05-05-2022 Following clinical p athway protocol [facility] Start: 05-05-2022 Assessment of risk o f venous thromboembolism [facility] Start: 05-05-2022 Insertion of cathete r into peripheral vein [facility] Start: 05-05-2022 Measuring intake and output [facility] Start: 05-05-2022 Providing care accor ding to standard [facility] Start: 05-05-2022 Provision of activit y privileges [facility] Start: 05-05-2022 Referral to occupati onal therapist [facility] Start: 05-05-2022 Referral to service [facility] Start: 05-05-2022 [facility] Start: 05-05-2022 Admission procedure [facility] Start: 05-05-2022 Inhalation therapy procedure [facility] Start: 05-05-2022 Patient referral to dietitian [facility] Start: 04-03-2022 Patient referral [facility] Work Phone: Start: 03-17-2022 ADVANCE DIRECTIVE DISCUSSION ADVANCE DIRECTIVE DISCUSSION [facility] Start: 03-17-2022 DEPRESSION ASSESSMENT DEPRESSION ASS [facility] Start: 03-16-2022 DEPRESSION ASSESSMENT DEPRESSION ASS [facility] Comment on above: Postponed from 03/17 (Declined at this time) Start: 03-02-2022 COLORECTAL CANCER SCREENING COLORECTAL CANCER SCREENING [facility] Start: 02-22-2022 End: 04-24-2022 25-hydroxyvitamin D3 [Mass/volume] in Serum or Plasma VITAMIN D 25 HYDROXY Lab Routine Vitamin D deficiency Expected: 02/22/2022 (Approximate), Expires: 04/24/2022 [facility] Work Phone: Comment on above: Expected: 02/22/2022 (Approximate), Expires: 04/24/2022 Start: 02-22-2022 End: 04-24-2022 CBC panel - Blood by Automated count CBC Lab Routine Essential hypertension Expected: 02/22/2022 (Approximate), Expires: 04/24/2022 [facility] Work Phone: Comment on above: Expected: 02/22/2022 (Approximate), Expires: 04/24/2022 Start: 02-22-2022 End: 04-24-2022 Comprehensive metabolic 2000 panel - Serum or Plasma COMP METABOLIC PANEL Lab Routine IFG (impaired fasting glucose) Essential hypertension Expected: 02/22/2022 (Approximate), Expires: 04/24/2022 [facility] Work Phone: Comment on above: Expected: 02/22/2022 (Approximate), Expires: 04/24/2022 Start: 02-22-2022 End: 04-24-2022 Hemoglobin A1c in Blood HGB A1C Lab Routine IFG (impaired fasting glucose) Expected: 02/22/2022 (Approximate), Expires: 04/24/2022 [facility] Work Phone: Comment on above: Expected: 02/22/2022 (Approximate), Expires: 04/24/2022 Start: 02-22-2022 End: 04-24-2022 Thyrotropin [Units/volume] in Serum or Plasma TSH BLD Lab Routine Acquired hypothyroidism Expected: 02/22/2022 (Approximate), Expires: 04/24/2022 [facility] Work Phone: Comment on above: Expected: 02/22/2022 (Approximate), Expires: 04/24/2022 Start: 02-22-2022 End: 04-24-2022 Thyroxine (T4) free [Mass/volume] in Serum or Plasma T4 FREE/FREE THYROX Lab Routine Acquired hypothyroidism Expected: 02/22/2022 (Approximate), Expires: 04/24/2022 [facility] Work Phone: Comment on above: Expected: 02/22/2022 (Approximate), Expires: 04/24/2022 Start: 02-22-2022 End: 04-24-2022 Triiodothyronine (T3) Free [Mass/volume] in Serum or Plasma T3 FREE BLD Lab Routine Acquired hypothyroidism Expected: 02/22/2022 (Approximate), Expires: 04/24/2022 [facility] Work Phone: Comment on above: Expected: 02/22/2022 (Approximate), Expires: 04/24/2022 Start: 01-15-2022 Colonoscopy COLONOSCOPY [facility] Start: 01-15-2022 COLORECTAL CANCER SCREENING COLORECTAL CANCER SCREENING [facility] Start: 11-15-2021 Influenza vaccination INFLUENZA (#1) [facility] Start: 07-21-2021 Mammography MAMMOGRAM [facility] Start: 03-17-2021 DEPRESSION ASSESSMENT DEPRESSION ASS ESSMENT [facility] Start: 01-25-2021 COVID-19 VACCINE (3 - Booster for Pfizer series) COVID-19 VACCINE (3 - Booster for Pfizer series) [facility] Start: 10-20-2020 COVID-19 VACCINE (3 - Booster for Pfizer series) COVID-19 VACCINE (3 - Booster for Pfizer series) [facility] Start: 11-19-2019 Urine microalbumin profile [facility] Start: 10-08-2013 FECAL OCCULT BLOOD FECAL OCCULT BLOO D [facility] Start: 05-01-2012 Shingrix Vaccine (2 of 3) [place] grix Vaccine (2 of 3) [facility] Start: 2010 RSV Vaccine (1 - 1-d ose 60+ series) RSV Vaccine (1 - 1-dose 60+ series) [facility] Start: 1995 COLOGUARD (FIT-DNA) COLOGUARD (FIT-D NA) [facility] Start: [address] COLONOGRAPHY [facility] Start: 1995 Screening for malign ant neoplasm of colon [facility] Start: 1995 SIGMOIDOSCOPY SIGMOIDOSCOPY [facility] Start: 1971 Microscopic observat ion [Identifier] in Cervix by Cyto stain Pap Smear [facility] Start: 1969 Hepatitis B (1 of 3 - Risk 3-dose series) Hepatitis B (1 of 3 - Risk 3-dose series) [facility] Start: 02-27-1968 BP CONTROLLED (<130/80) BP CONTROLLE D (<130/80) [facility] Start: 02-27-1968 Depression Screening Depression Scre ening [facility] Start: 1966 COVID-19 (1) COVID-19 (1) [facility] Start: 1966 MenB (1 of 2 - MenB 2-Dose Series) MenB (1 of 2 - MenB 2-Dose Series) [facility] Start: 1957 Tetanus Diphtheria a nd Pertussis Vaccines (1 - Tdap) Tetanus Diphtheria and Pertussis Vaccines (1 - Tdap) [facility] Start: 1951 Hepatitis A (1 of 2 - Risk 2-dose series) Hepatitis A (1 of 2 - Risk 2-dose series) [facility] Start: 1951 MMR (1 of 1 - Standa rd series) MMR (1 of 1 - Standard series) [facility] Start: 1951 Varicella (1 of 2 - 2-dose childhood series) Varicella (1 of 2 - 2-dose childhood series) [facility] COVID & INFLUENZA A/ B & RSV PCR, ROUTINE COVID & INFLUENZA A/B & RSV PCR, ROUTINE Microbiology Routine Acute cough Ordered: 01/23/2024 [facility] Work Phone: Comment on above: Ordered: 01/23/2024 End: 11-13-2024 DBT Breast - bilateral screening FORTUNATO SCREENING [facility] Radiology Routine Encounter for screening mammogram for breast cancer 1 Occurrences starting 10/15/2023 until 11/13/2024 [facility] Work Phone: Comment on above: 1 Occurrences starti ng 10/15/2023 until 11/13/2024 DBT Breast - bilater al screening FORTUNATO SCREENING [facility] Radiology Routine Encounter for screening mammogram for breast cancer 03/05/2024 1:29 PM EST [facility] Work Phone: Genetic Sendout: Genetic Sendout : Lab Routine 07/22/2020 12:00 PM EDT [facility] End: 07-22-2020 Genetic Sendout: Common Hereditary Cancers Panel [facility] Comment on above: 1 Occurrences starti ng 07/22/2020 until 07/22/2020 For lab collect this frequency defaults to the next routine lab draw time. Routine times: 0600; 1100; 1400; 1900; 2200 for 1 Occurrences starting 07/22/2020 until 07/22/2020 INFLUENZA VACCINE, P RSV FREE, AGE 65+ YR, HIGH DOSE, QUADRIVALENT (FLUZONE HIGH-DOSE) INFLUENZA VACCINE, PRSV FREE, AGE 65+ YR, HIGH DOSE, QUADRIVALENT (FLUZONE HIGH-DOSE) Immunization/Injection Routine Encounter for immunization 1 Occurrences starting 02/21/2023 [facility] Work Phone: Comment on above: 1 Occurrences starti ng 02/21/2023 Ova and parasites identified in Unspecified specimen by Light microscopy [facility] Patient Education [facility] Work Phone: Patient referral [facility] Work Phone: PFIZER-BIONTECH COVI D-19 VACCINE ( SEASON) AGE 12+ YR PFIZER-BIONTECH COVID-19 VACCINE ( SEASON) AGE 12+ YR Immunization/Injection Routine Encounter for immunization 1 Occurrences starting 02/21/2023 [facility] Work Phone: Comment on above: 1 Occurrences starti ng 02/21/2023 End: 09-21-2022 Screening mammography bi 2-view breast inc cad FORTUNATO SCREENING Radiology Routine Encounter for screening mammogram for breast cancer 1 Occurrences starting 08/22/2021 until 09/21/2022 [facility] Work Phone: Comment on above: 1 Occurrences starti ng 08/22/2021 until 09/21/2022 [facility] Immunizations Immunization Date Immunization Notes Care Provider Fa [facility] 01-15-2022 influenza, injectabl e, quadrivalent, preservative free Dr. Paulo Scott Work Phone: [facility] 01-15-2022 influenza, seasonal, injectable Dr. Paulo Scott Work Phone: [facility] 01-15-2022 influenza virus vaccine, unspecified formulation Screen Wstr [facility] 12-07-2021 Influenza, high dose seasonal Dr. Paulo Scott MD Work Phone: [facility] 12-07-2021 influenza, high dose seasonal, preservative-free Dr. Paulo Scott Work Phone: [facility] 12-07-2021 influenza, high-dose , quadrivalent vaccine (FLUZONE HIGH DOSE QUADRIVALENT) Tn Nurse Work Phone: [facility] Work Phone: 01-19-2021 influenza, high-dose , quadrivalent vaccine (FLUZONE HIGH DOSE QUADRIVALENT) Paulo Scott MD Work Phone: [facility] 08-25-2020 [facility] ([facility] 08-04-2020 COVID-19 vaccine, ag e 12+ yr (PFIZER-BIONTECH - PURPLE TOP) Paulo Scott MD Work Phone: [facility] Work Phone: 12-16-2019 influenza, injectabl e, quadrivalent, preservative free Dr. Paulo Scott Work Phone: [facility] 12-16-2019 influenza, seasonal, injectable Dr. Paulo Scott Work Phone: [facility] 12-16-2019 influenza, seasonal, injectable, preservative free Paulo Scott MD Work Phone: [facility] Work Phone: 12-14-2019 influenza, high-dose , quadrivalent vaccine (FLUZONE HIGH DOSE QUADRIVALENT) Paulo Scott MD Work Phone: [facility] 11-18-2019 tetanus and diphther ia toxoids, adsorbed, preservative free, for adult use (2 Lf of tetanus toxoid and 2 Lf of diphtheria toxoid) Paulo Scott MD Work Phone: [facility] 12-22-2018 influenza, high dose seasonal, preservative-free Paulo Scott MD Work Phone: [facility] 12-21-[address] Paulo Scott Work Phone: [facility] 12-05-2017 influenza, high dose seasonal, preservative-free Paulo Scott MD Work Phone: [facility] Work Phone: 11-29-2016 influenza, high dose seasonal, preservative-free Paulo Scott MD Work Phone: [facility] 11-29-2016 pneumococcal polysaccharide vaccine, 23 valent Paulo Scott MD Work Phone: [facility] 12-08-2015 influenza, high dose seasonal, preservative-free Paulo Scott MD Work Phone: [facility] 09-22-2015 pneumococcal conjuga te vaccine, 13 valent Paulo Scott MD Work Phone: [facility] 12-15-2014 influenza, injectabl e, quadrivalent, contains preservative Paulo Scott MD Work Phone: [facility] Work Phone: 12-23-2013 influenza, seasonal, injectable Paulo Scott MD Work Phone: [facility] Work Phone: 02-09-2013 influenza virus vaccine, unspecified formulation Paulo Scott MD Work Phone: [facility] 03-06-2012 zoster vaccine, live Paulo cuello MD Work Phone: [facility] Work Phone: 01-29-2012 influenza virus vaccine, unspecified formulation Paulo Scott MD Work Phone: [facility] Work Phone: 2011 influenza virus vaccine, unspecified formulation Paulo Scott MD Work Phone: [facility] Work Phone: 01-06-2009 influenza virus vaccine, whole virus Norman Sumeet MOLDING MACHINE SETTER.RESIDENTIAL DIRECTOR Work Phone: [facility] 06-03-2008 hepatitis B vaccine, pediatric or pediatric/adolescent dosage Dr. Paulo Scott Work Phone: [facility] 02-09-2008 influenza virus vaccine, whole virus Norman Sumeet MOLDING MACHINE SETTER.RESIDENTIAL DIRECTOR Work Phone: [facility] 01-15-2008 hepatitis B vaccine, pediatric or pediatric/adolescent dosage Dr. Paulo Scott Work Phone: [facility] 12-04-2007 hepatitis B vaccine, pediatric or pediatric/adolescent dosage Dr. Paulo Scott Work Phone: [facility] NEGATED: Highlighted row has not occurred!09-06-2022 tetanus toxoid, reduced diphtheria toxoid, and acellular pertussis vaccine, adsorbed Paulo Scott MD Work Phone: [facility] Work Phone: Comment on above: Deferred: Postponed Payers Date Payer Category Payer Self-pay [id number] 2020 Medicare ANTHEM MEDICARE ANTHEM MEDICARE SELECT [id number] 2020-Present [address] [address] [place] [address] [id number] 2016 [facility] ANTHEM ME DICARE SUPPLEMENT [id number] 2016 Unknown ANTHEM ANTHEM ME DICARE SUPPLEMENT [id number] 2016-Present [phone] [id number] [place] [address] Indemnity [id number] 2016 Unknown ANTHEM ANTHEM ME DICARE SUPPLEMENT [id number] 2016-Present [phone] [address] [place] [id number] Indemnity [id number] 2016 Unknown [id number] 2015 Medicare [id number] 2015 Medicare [id number] 2015 Medicare [id number] Unknown [id number] Unknown [id number] .462 Unknown [id number] 2.16.840.1.490114.3.579.2 .462 Unknown [id number] 2.16.840.1.962233.3.579.2 .462 Unknown [id number] 2.16.840.1.632339.3.579.2 .462 Unknown [id number] 2.16.840.1.128334.3.579.2 .462 Unknown [id number] 2.840.1.636110.3.579.2 .462 Unknown [id number] 2.16.840.1.500786.3.579.2 .462 Unknown [id number] 2.16.840.1.359220.3.579.2 .462 Unknown [id number] 2.16.840.1.170636.3.579.2 .462 Unknown [id number] 2.16.840.1.913134.3.579.2 .462 Unknown [id number] 2.16.840.1.400226.3.579.2 .462 Unknown [id number] 2.16.840.1.264049.3.579.2 .462 Unknown [id number] 2.16.840.1.785133.3.579.2 .462 Unknown [id number] 2.16.840.1.474053.3.579.2 .462 Unknown [id number] 2.16.840.1.154550.3.579.2 .462 Unknown [id number] 2.16.840.1.215836.3.579.2 .462 Unknown [id number] 2.16.840.1.508522.3.579.2 .462 Unknown [id number] 2.16.840.1.507602.3.579.2 .462 Unknown [id number] 2.16.840.1.458935.3.579.2 .462 Unknown [id number] 2.16.840.1.702450.3.579.2 .462 Unknown [id number] 2.16.840.1.697050.3.579.2 .462 Unknown [id number] 2.16.840.1.388792.3.579.2 .462 Unknown [id number] 2.16.840.1.624120.3.579.2 .462 Social History Date Type Detail Facility Start: 04-14-2020 End: 01-14-2024 Tobacco smoking status NHIS Never smoker [facility] Start: 04-14-2020 End: 04-26-2022 Tobacco use and exposure Never used [facility] Start: 1950 Sex Assigned At Not on file A [facility] Start: 06-11-2020 End: 12-01-2021 Exposure to SARS-CoV-2 (event) Not sure [facility] Start: 12-21-2020 End: 05-21-2024 Alcohol intake Current drinker of alcohol (finding) [facility] Start: 12-21-2020 End: 08-23-2022 Alcohol intake [facility] Work Phone: Start: 12-28-2010 History SDOH Alcohol Comment occasionally rare [facility] Start: 09-18-2021 End: 06-19-2023 Tobacco smoking status NJIS Unknown if ever smoked [facility] Start: 08-06-2020 Occasional [facility] Start: 1950 Sex Assigned At Female W [facility] Start: 08-23-2022 End: 09-19-2022 Tobacco use panel [facility] Work Phone: Adult Depression Screening Assessment 2 [facility] Work Phone: Start: 06-03-2024 Sex Female (finding) [facility] NEGATED: Highlighted row [facility] Medical Equipment Procedure Code Equipment Code Equipment Original Text Equipment Identifier Dates Total cholecystectomy with exploration of common bile duct CLIP,HEMIBETH PEREZ WECK FDA Start: 02-10-2019 Total cholecystectomy with exploration of common bile duct CLIP,HEMIBETH PEREZ WECK FDA Start: 02-10-2019 Total cholecystectomy with exploration of common bile duct CLIP,HEMOLOMARYBEL PEREZ WECK FDA Start: 02-10-2019 Total cholecystectomy with exploration of common bile duct CLIP,HEMOLOMARYBEL PEREZ WECK FDA Start: 02-10-2019 Total cholecystectomy with exploration of common bile duct CLIP,HEMIBETH PEREZ WECK FDA Start: 02-10-2019 Total cholecystectomy with exploration of common bile duct CLIP,HEMOLOMARYBEL PEREZ WECK FDA Start: 02-10-2019 Total cholecystectomy with exploration of common bile duct CLIP,HEMIBETH PEREZ WECK FDA Start: 02-10-2019 Total cholecystectomy with exploration of common bile duct CLIP,HEMIBETH PEREZ WECK FDA Start: 02-10-2019 Total cholecystectomy with exploration of common bile duct CLIP,HEMIBETH PEREZ WECK FDA Start: 02-10-2019 Total cholecystectomy with exploration of common bile duct CLIP,HEMIBETH PEREZ WECK FDA Start: 02-10-2019 Total cholecystectomy with exploration of common bile duct CLIP,HEMOLOMARYBEL PEREZ WECK FDA Start: 02-10-2019 Total cholecystectomy with exploration of common bile duct CLIP,HEMIBETH PEREZ WECK FDA Start: 02-10-2019 Total cholecystectomy with exploration of common bile duct CLIP,HEMIBETH PEREZ WECK FDA Start: 02-10-2019 Total cholecystectomy with exploration of common bile duct CLIP,HEMOLOMARYBEL PEREZ WECK FDA Start: 02-10-2019 Total cholecystectomy with exploration of common bile duct CLIP,HEMIBETH PEREZ WECK FDA Start: 02-10-2019 Total cholecystectomy with exploration of common bile duct CLIP,HEMIBETH PEREZ WECK FDA Start: 02-10-2019 Total cholecystectomy with exploration of common bile duct CLIP,HEMOLOMARYBEL PEREZ WECK FDA Start: 02-10-2019 Total cholecystectomy with exploration of common bile duct CLIP,HEMIBETH PEREZ WECK FDA Start: 02-10-2019 Total cholecystectomy with exploration of common bile duct CLIP,HEMOLOMARYBEL PEREZ WECK FDA Start: 02-10-2019 Total cholecystectomy with exploration of common bile duct CLIP,SUDEEP LONG FDA Start: 02-10-2019 Total cholecystectomy with exploration of common bile duct CLIP,SUDEEP LONG FDA Start: 02-10-2019 Total cholecystectomy with exploration of common bile duct CLIP,SUDEEP LONG FDA Start: 02-10-2019 Total cholecystectomy with exploration of common bile duct CLIP,SUDEEP LONG FDA Start: 02-10-2019 Total cholecystectomy with exploration of common bile duct CLIP,SUDEEP LONG FDA Start: 02-10-2019 Total cholecystectomy with exploration of common bile duct CLIP,SUDEEP LONG FDA Start: 02-10-2019 Total cholecystectomy with exploration of common bile duct CLIP,SUDEEP LONG FDA Start: 02-10-2019 Total cholecystectomy with exploration of common bile duct CLIP,SUDEEP LONG FDA Start: 02-10-2019 Total cholecystectomy with exploration of common bile duct CLIP,SUDEEP LONG FDA Start: 02-10-2019 Total cholecystectomy with exploration of common bile duct CLIP,SUDEEP LONG FDA Start: 02-10-2019 Total cholecystectomy with exploration of common bile duct CLIP,SUDEEP LONG FDA Start: 02-10-2019 Total cholecystectomy with exploration of common bile duct CLIP,SUDEEP LONG FDA Start: 02-10-2019 Total cholecystectomy with exploration of common bile duct CLIP,SUDEEP LONG FDA Start: 02-10-2019 Total cholecystectomy with exploration of common bile duct CLIP,SUDEEP LONG FDA Start: 02-10-2019 Total cholecystectomy with exploration of common bile duct CLIP,SUDEEP LONG FDA Start: 02-10-2019 Total cholecystectomy with exploration of common bile duct CLIP,SUDEEP LONG FDA Start: 02-10-2019 Total cholecystectomy with exploration of common bile duct CLIP,SUDEEP LONG FDA Start: 02-10-2019 Goals Date Patient Goal Desired Activity /State Functional Status Date Assessment Result Facility 05-06-2022 Functional status Ambulates [facility] Work Phone: 08-19-2014 Are you deaf, or do you have serious difficulty hearing No 08/19/2014 10:45 AM Rosina Poe LPN No [facility] 08-19-2014 Are you blind, or do you have serious difficulty seeing, even when wearing glasses No 08/19/2014 10:45 AM Rosina Poe LPN No [facility] 08-19-2014 Do you have serious difficulty walking or climbing stairs No 08/19/2014 10:45 AM Rosina Poe LPN No [facility] 08-19-2014 Do you have difficul ty dressing or bathing No 08/19/2014 10:45 AM Rosina Poe LPN No [facility] 08-19-2014 Because of a physica l, mental, or emotional condition, do you have difficulty doing errands alone such as visiting a physician's office or shopping No 08/19/2014 10:45 AM Rosina Poe LPN No [facility] Mental Status Date Assessment Result Facility 04-08-2024 Cognitive function Awake;Alert;Appropriat e [facility] Work Phone: 04-23-2023 Cognitive function Voice/Name [facility] Work Phone: 05-06-2022 Cognitive function Appropriate [facility] Work Phone: 05-05-2022 Cognitive function Level Of Cons ciousness Awake;Alert;Appropriate;Fol lows Commands [facility] Work Phone: 04-24-2022 Cognitive function Level Of Cons ciousness Awake;Alert;Appropriate;Fol lows Commands [facility] Work Phone: 08-19-2014 Because of a physica l, mental, or emotional condition, do you have serious difficulty concentrating, remembering, or making decisions No 08/19/2014 10:45 AM EDRosina Mccall LPN No [facility] Clinical Notes 06-26-2011 to 05-26-2024 Juan Rodriguez APRN.AIRPLANE DISPATCHER - 05/21/2024 1:20 PM Geoffrey Boogie Mammo Tech - 03/05/2024 1:30 PM ESTTelephone Encounter - Paulo Scott MD - 2024 4:57 PM EST Note Date & Type Note Facility 05-26-2024 Radiology Diagnostic study note [facility] Imaging Services [address] [place], [place] [id number] Shoulder min 2 Views MR#: [id number] Acct: [id number] Name: KESHIA ROJAS Rep #: [id number] : 1950 F 74 From: Salo Singer MD PCP: Dr. Paulo Scott MD Status: RE G CLI Study:Shoulder min 2 Views Date of Exam: 05/26/24 Exam# [id number] Ordering Dr: Agus Paz MD PROCEDURE: SHOULDER MIN 2 VIEWS REASON FOR EXAM: Left shoulder pain. Limited range of motion. TECHNIQUE: Four views of the left shoulder were obtained. COMPARISON: Comparison is made with prior study dated June 17, 2020. FINDINGS: Left SHOULDER: No fracture. No suspicious bone lesion. Moderate degree of joint space of the glenohumeral joint. Degenerative changes of the acromioclavicular joint. Irregularity of the greater tuberosity is suggestive of possible old Hill-Sachs deformity. Soft tissues are unremarkable. RAD/Shoulder min 2 Views IMPRESSION: DEGENERATIVE OSTEOARTHROSIS. NO ACUTE FINDINGS. 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 Reading Location: [place] [address] CC: Dr. Crystal Paz MD; Dr. Paulo Scott MD ~ Literary Agent: Signed [facility] 05-21-2024 History of Presen t illness Narrative SUBJECTIVE: Shingrix Vaccine(2 of 3) due on 05/01/2012 DTaP,Tdap,Td Vaccine(1 - Tdap) due on 11/19/2019 HPI Keshia Rojas is a 74 year old female. PMH significant for ACTIVE [...] today for routine follow up visit. She is in her usual state of health. Diet: tries to eat a healthy diet Exercise: Active continues to work Weight: Increased CAD: Without complaint of chest pain or shortness of breath. She notes getting injections left knee Dr. [facility]. Notes chronic left should pain was increased, now back at baseline. Notes financial constraints, states if she doesn't work she doesn't eat.States spent all of their money. Hypothyroidism. She doing well on her current dose of Synthroid. TSH Date Value 08/29/2023 2.640 mIU/L 02/19/2023 3.670 mIU/L 01/13/2021 2.780 uU/mL 03/16/2020 3.460 uU/mL ) HTN: Without report headache, chest pain, palpitations, dyspnea, peripheral edema, orthopnea, fatigue, and PND. Last 3 Encounter BP Readings: Date: BP: 01/23/2024 128/78 10/17/2023 128/66 09/17/2023 128/78 Hyperlipidemia. Ms. Rojas reports doing well on current therapy. Her most recent lipid panels are: Cholesterol, Total (mg/dL) Date Value 11/28/2023 184 08/29/2023 192 01/13/2021 177 12/10/2019 171 HDL Cholesterol (mg/dL) Date Value 11/28/2023 60 08/29/2023 57 01/13/2021 51 12/10/2019 53 LDL Cholesterol (mg/dL) Date Value 11/28/2023 106 08/29/2023 118 01/13/2021 109 12/10/2019 102 Triglyceride (mg/dL) Date Value 11/28/2023 88 08/29/2023 87 01/13/2021 85 12/10/2019 80 GERD/Barretts: Stable, no current complaints. Following with Dr. Casper. No recent EGD is reported. No upcoming appointmnt with gastroenterology. Review of Systems Constitutional: Negative. HENT: Negative. Respiratory: Negative. Cardiovascular: Negative. Musculoskeletal: Positive for arthralgias. Objective BP 128/82 Pulse 76 Resp 16 Wt 92 kg (202 lb 13.2 oz) BMI 34.81 kg/m Physical Exam Vitals and nursing note [...] and oriented to person, place, and time. Senior Sourcing Manager present, NIMO. ALLERGIES Allergen Reactions Adhesive Rash ECG patch [...] mandibular pain, lymphadenopathy, possible angio edema per [facility] ER note 04/24/2022 Meclizine Swelling URINARY RETENTION,FACE FELT FUNNY Metoprolol GI Upset headache.itching.hives. Myrbetriq [Mirabegr* Other: See Comments elevated BP Prevacid [Lansopraz* GI Upset GAS,BURPING HEADACHE Prilosec [Omeprazol* Diarrhea Tape [Adhesive Tape* Rash Paper tape Tizanidine Other: See Comments increased pain Zelnorm [Tegaserod * Hives Medication diazePAM (VALIUM) 5 mg tablet Take 1 tablet by mouth at bedtime as needed (vertigo or anxiety) for up to 180 days. Patient should start on March 25, 2024. benzonatate (TESSALON PERLE) 100 mg capsule Take 1-2 capsules by mouth three times a day as needed for cough. levothyroxine (SYNTHROID) 88 mcg tablet Take 1 tablet by mouth once daily. Take on empty stomach. For Thyroid amLODIPine (NORVASC) 5 mg tablet Take 1 tablet by mouth once daily. cyclobenzaprine (FLEXERIL) 5 mg tablet Take 1 tablet by mouth three times a day as needed for muscle spasm. lidocaine (LIDODERM) 5 % Apply 1 Patch as directed once daily. Remove old patch after wearing for 12 hours and then 12 hours later apply new patch for 12 hours on the site and 12 hours off the site. Location: right lower back. ipratropium-albuterol (DUONEB) 0.5 mg-3 mg(2.5 mg base)/3 mL nebu Inhale 3 mL as instructed every 6 hours. Unit dose pack. dr Park pulmonology. spironolactone (ALDACTONE) 25 mg tablet Take 1 tablet by mouth once daily. aspirin, enteric coated (ASPIRIN, ENTERIC COATED) 81 [...] Take 1 tablet by mouth twice daily. gabapentin (NEURONTIN) 100 mg capsule Take 3 capsules by mouth daily at bedtime for 180 days. diclofenac (VOLTAREN) 1 % topical gel Apply 2 g to affected area four times daily. 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 Charlton) Cataracts, both eyes Coronary atherosclerosis of unspecified type of vessel, [place] or graft minimal plaque on cath 08/06/2006 DVT (deep venous thrombosis) ([facility]) 2010 Right leg OCTOBER 2009 NOT TREATED Dysmetabolic syndrome X Esophageal reflux Fibromyalgia better with Lyrica Floppy eyelid syndrome Hiatal hernia Large when seen on EGD 10/2010 at [facility] (Dr. 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 retrograde persistalsis of esphagus causing episode of emesis Spondylosis TMJ arthritis right Unspecified essential hypertension Unspecified hypothyroidism Social History Tobacco Use Smoking status: Never Smokeless tobacco: Never Vaping Use Vaping status: Never Used Substance Use Topics Alcohol use: Yes Comment: occasionally rare Drug use: No Latest Ref Rng 02/19/2023 02/21/2023 08/29/2023 11/28/2023 WBC 3.70 - 11.00 k/uL 9.12 8.49 RBC 3.90 - 5.20 m/uL 4.50 4.78 Hemoglobin 11.5 - 15.5 g/dL 14.0 14.6 Hematocrit 36.0 - 46.0 % 42.7 44.6 MCV 80.0 - 100.0 fL 94.9 93.3 MCH 26.0 - 34.0 pg 31.1 30.5 MCHC 30.5 - 36.0 g/dL 32.8 32.7 RDW-CV 11.5 - 15.0 % 13.5 13.3 Platelet Count 150 - 400 k/uL 370 342 MPV 9.0 - 12.7 fL 9.8 10.2 Neut% % 47.9 51.0 Abs Neut (ANC) 1.45 - 7.50 k/uL 4.36 4.33 Lymph% % 32.3 31.4 Abs Lymph 1.00 - 4.00 k/uL 2.95 2.67 Tunica% % 10.2 8.2 Abs Tunica <0.87 k/uL 0.93 (H) 0.70 Eosin% % 8.0 7.9 Abs Eosin <0.46 k/uL 0.73 (H) 0.67 (H) Baso% % 1.3 1.1 Abs Baso <0.11 k/uL 0.12 (H) 0.09 Immature Gran % % 0.3 0.4 IMMATURE GRANS (ABS) <0.10 k/uL 0.03 0.03 NRBC /100 WBC 0.0 0.0 Absolute nRBC <0.01 k/uL <0.01 <0.01 DTYPE Auto Auto Protein, Total 6.3 - 8.0 g/dL 7.2 7.3 7.2 Albumin 3.9 - 4.9 g/dL 4.1 4.0 3.9 Calcium 8.5 - 10.2 mg/dL 9.7 9.6 9.6 Bilirubin, Total 0.2 - 1.3 mg/dL 0.5 0.4 0.5 Alkaline Phosphatase 34 - 123 U/L 60 64 64 AST 13 - 35 U/L 21 30 23 ALT 7 - 38 U/L 24 31 30 Glucose 74 - 99 mg/dL 119 (H) 147 (H) 126 (H) BUN 7 - 21 mg/dL 19 17 14 Creatinine 0.58 - 0.96 mg/dL 0.81 0.78 0.72 Sodium 136 - 144 mmol/L 142 140 140 Potassium 3.7 - 5.1 mmol/L 4.6 4.1 4.7 Chloride 98 - 107 mmol/L 103 104 104 CO2 22 - 30 mmol/L 27 26 27 Anion Gap 8 - 15 mmol/L 12 10 9 eGFR >=60 mL/min/1.73m 77 80 88 Cholesterol, Total <200 mg/dL 179 192 184 Triglyceride <150 mg/dL 74 87 88 HDL Cholesterol >39 mg/dL 54 57 60 Non HDL Cholesterol <130 mg/dL 125 135 (H) 124 Fasting Time hrs 10 11 13 VLDL Cholesterol <30 mg/dL 15 17 18 TC:HDL Ratio <5.10 3.31 3.37 3.07 LDL Cholesterol <100 mg/dL 110 (H) 118 (H) 106 (H) LDL:HDL Ratio <2.54 2.04 2.07 1.77 Phencyclidine Negative Negative Negative Benzodiazepines Urine Negative Preliminary positive ! Preliminary positive ! Cocaine Urine Negative Negative Negative Amphetamines Negative Negative Negative Cannabinoids, Urine Negative Negative Negative Opiates Negative Negative Negative Barbiturates Negative Negative Negative Ethanol, Urine <11 mg/dL <11 <11 Oxycodone, Urine Negative Negative Negative Hemoglobin A1C 4.3 - 5.6 % 6.1 (H) 6.8 (H) 6.7 (H) Estimated Average Glucose mg/dL 128 148 146 TSH 0.270 - 4.200 mIU/L 3.670 2.640 Vitamin D 25 Hydroxy 31.0 - 80.0 ng/mL 74.7 ASSESSMENT/PLAN: 1. Acquired hypothyroidism - ICD9: 244.9, ICD10: E03.9 (primary diagnosis) - Take on an empty stomach either first thing in the morning or at bedtime. - continue current dose of Synthroid 2. Primary hypertension - ICD9: 401.9, ICD10: I10 controlled - Encouraged sodium restriction, DASH or Mediterranean diet - Recommend regular aerobic exercise 3. Mixed hyperlipidemia - ICD9: 272.2, ICD10: E78.2 Recommend a plant based diet such as Mediterranean diet with plenty of vegetables, fruits,whole grains, fish, chicken, turkey or plant proteins and routine exercise such as walking 4. Chronic pain of left knee - ICD9: 719.46, 338.29, ICD10: M25.562, G89.29 Following with [facility], getting injections in the knee joint 5. Chronic bilateral low back pain with bilateral sciatica - ICD9: 724.2, 724.3, 338.29, ICD10: M54.42, M54.41, G89.29 Stable on current treatment, continue unchanged for now - GABAPENTIN 100 MG CAPSULE 6. Encounter for immunization - ICD9: V03.89, ICD10: Z23 - [employer] INSTRUCTIONS - INFLUENZA VACCINE, PRSV FREE, AGE 65+ YR, HIGH DOSE, TRIVALENT (FLUZONE HIGH-DOSE) - [employer] COVID-19 VACCINE AGE 12+ YR (COMIRNATY) Juan Rodriguez APRN.AIRPLANE DISPATCHER Medical Decision Making: Problems: Moderate: 2+ stable chronic illnesses Data: Unique test result(s) reviewed: 3+ Risk: Moderate: Drug management Medical Decision Making Level: 4 - Moderate documented in this encounter [facility] 05-21-2024 Note HNO ID: [id number] Author: JUAN RODRIGUEZ APRN.CNS Service: ? Author Type: Nurse Specialist Type: Progress Notes Filed: 05/24/2024 07:54 Note Text: SUBJECTIVE: Shingrix Vaccine(2 of 3) due on 05/01/2012 DTaP,Tdap,Td Vaccine(1 - Tdap) due on 11/19/2019 HPI Keshia Rojas is a 74 year old female. PMH significant for ACTIVE [...] today for routine follow up visit. She is in her usual state of health. Diet: tries to eat a healthy diet Exercise: Active continues to work Weight: Increased CAD: Without complaint of chest pain or shortness of breath. She notes getting injections left knee Dr. [facility]. Notes chronic left should pain was increased, now back at baseline. Notes financial constraints, states if she doesn't work she doesn't eat.States spent all of their money. Hypothyroidism. She doing well on her current dose of Synthroid. TSH Date Value 08/29/2023 2.640 mIU/L 02/19/2023 3.670 mIU/L 01/13/2021 2.780 uU/mL 03/16/2020 3.460 uU/mL ) HTN: Without report headache, chest pain, palpitations, dyspnea, peripheral edema, orthopnea, fatigue, and PND. Last 3 Encounter BP Readings: Date: BP: 01/23/2024 128/78 10/17/2023 128/66 09/17/2023 128/78 Hyperlipidemia. Ms. Rojas reports doing well on current therapy. Her most recent lipid panels are: Cholesterol, Total (mg/dL) Date Value 11/28/2023 184 08/29/2023 192 01/13/2021 177 12/10/2019 171 HDL Cholesterol (mg/dL) Date Value 11/28/2023 60 08/29/2023 57 01/13/2021 51 12/10/2019 53 LDL Cholesterol (mg/dL) Date Value 11/28/2023 106 08/29/2023 118 01/13/2021 109 12/10/2019 102 Triglyceride (mg/dL) Date Value 11/28/2023 88 08/29/2023 87 01/13/2021 85 12/10/2019 80 GERD/Barretts: Stable, no current complaints. Following with Dr. Casper. No recent EGD is reported. No upcoming appointmnt with gastroenterology. Review of Systems Constitutional: Negative. HENT: Negative. Respiratory: Negative. Cardiovascular: Negative. Musculoskeletal: Positive for arthralgias. Objective BP 128/82 Pulse 76 Resp 16 Wt 92 kg (202 lb 13.2 oz) BMI 34.81 kg/m? Physical Exam Vitals and nursing note [...] and oriented to person, place, and time. Senior Sourcing Manager present, NIMO. ALLERGIES Allergen Reactions Adhesive Rash ECG patch [...] mandibular pain, lymphadenopathy, possible angio edema per [facility] ER note 04/24/2022 Meclizine Swelling URINARY RETENTION,FACE FELT FUNNY Metoprolol GI Upset headache.itching.hives. Myrbetriq [Mirabegr* Other: See Comments elevated BP Prevacid [Lansopraz* GI Upset GAS,BURPING HEADACHE Prilosec [Omeprazol* Diarrhea Tape [Adhesive Tape* Rash Paper (more content not included)... [facility] 03-05-2024 History of Presen t illness Narrative Radiology Service Progress Note PATIENT NAME: Keshia Rojas DATE OF SERVICE: March 05, 2024 TIME: 1:40 PM PATIENT IDENTITY VERIFICATION COMPLETED USING TWO (2) IDENTIFIERS: Name and Date of confirmed by patient verbally. FALL SCREENING: Has the patient had 2 falls in the last year or 1 fall with injury or currently using an Ambulatory Assistive Device (Walker, Cane, Wheelchair, Crutches, etc.)? No PATIENT GENDER DATA: Female. status: : No status: NO. PATIENT RELEVANT IMPLANT DATA REVIEWED: Not Applicable PATIENT PRESENTS WITH AN IMPLANTABLE OR ATTACHED PRODUCTION GRADER: No RADIOLOGY DEPARTMENT: Mammography PERIPHERAL IV DATA: Not applicable SIGNED BY: Tova Valenzuela March 05, 2024 1:40 PM documented in this encounter [facility] 03-05-2024 Note HNO ID: [id number] Author: GEOFFREY BOND Mammo Tech Service: ? Author Type: Coat Agent Type: Progress Notes Filed: 03/05/2024 13:40 Note Text: Radiology Service Progress Note PATIENT NAME: Keshia Rojas DATE OF SERVICE: March 05, 2024 TIME: 1:40 PM PATIENT IDENTITY VERIFICATION COMPLETED USING TWO (2) IDENTIFIERS: Name and Date of confirmed by patient verbally. FALL SCREENING: Has the patient had 2 falls in the last year or 1 fall with injury or currently using an Ambulatory Assistive Device (Walker, Cane, Wheelchair, Crutches, etc.)? No PATIENT GENDER DATA: Female. status: : No status: NO. PATIENT RELEVANT IMPLANT DATA REVIEWED: Not Applicable PATIENT PRESENTS WITH AN IMPLANTABLE OR ATTACHED PRODUCTION GRADER: No RADIOLOGY DEPARTMENT: Mammography PERIPHERAL IV DATA: Not applicable SIGNED BY: Tova Valenzuela March 05, 2024 1:40 PM [facility] 2024 Telephone encounter Note PDMP reviewed. Filled 02/23--no more refills on prior RX The following approved medication requests have been transmitted electronically. Requested Prescriptions Signed Prescriptions Disp Refills diazePAM (VALIUM) 5 mg tablet 30 tablet 5 Sig: Take 1 tablet by mouth at bedtime as needed (vertigo or anxiety) for up to 180 days. Patient should start on March 25, 2024. Authorizing Provider: PAULO SCOTT MD [facility] 2024 Miscellaneous Notes PDMP reviewed. Filled 02/23--no more refills on prior RX The following approved medication requests have been transmitted electronically. Requested Prescriptions Signed Prescriptions Disp Refills diazePAM (VALIUM) 5 mg tablet 30 tablet 5 Sig: Take 1 tablet by mouth at bedtime as needed (vertigo or anxiety) for up to 180 days. Patient should start on March 25, 2024. Authorizing Provider: PAULO SCOTT MD Prescription Refill Information The patient has been identified by name and date of : Yes Caregiver verified no other encounters exist for this prescription request: Yes Caregiver confirmed with patient/requestor that no other refills are due, in the near future, with this provider at this time: Yes The last office visit in the department: 01/23/24 Does the patient have a future office visit with this provider/department: Yes Requested Prescriptions Pending Prescriptions Disp Refills diazePAM (VALIUM) 5 mg tablet 30 tablet 5 Sig: Take 1 tablet by mouth at bedtime as needed (vertigo or anxiety) for up to 180 days. Adalgisa Jim LPN February 23, 2024 3:05 PM documented in this encounter [facility] 02-23-2024 Telephone encounter Note Prescription Refill Information The patient has been identified by name and date of : Yes Caregiver verified no other encounters exist for this prescription request: Yes Caregiver confirmed with patient/requestor that no other refills are due, in the near future, with this provider at this time: Yes The last office visit in the department: 01/23/24 Does the patient have a future office visit with this provider/department: Yes Requested Prescriptions Pending Prescriptions Disp Refills diazePAM (VALIUM) 5 mg tablet 30 tablet 5 Sig: Take 1 tablet by mouth at bedtime as needed (vertigo or anxiety) for up to 180 days. Adalgisa Jim LPN February 23, 2024 3:05 PM [facility] 02-20-2024 Evaluation note Diagnosis Onset Date Resolution Diarrhea acute February 20, 2024 1:02pm Abdominal pain chronic February 192023 1:02pm Barretts esophagus chronic Decemb er 2023 1:02pm Right knee DJD acute February 152023 10:26am Right knee DJD acute April 022024 8:59am Right knee DJD acute April 092024 10:36am Right knee DJD acute April 162024 9:19am [facility] Work Phone: 1(546) 553-822812-06-2024 Telephone encounter Note* Telephone Encounter - Nicole Herrera LPN - 02/20/2024 11:20 AM EST Patient curly has not received her mail away pharmacy has not processed her Gabapentin rx as yet.She is out of the 7 day rx sent locally, now needs another rx [facility]. [facility]. Pending rx to go to [facility] [place]. Please advise The patient has been identified by name and date of : Yes Caregiver verified no other encounters exist for this prescription request: Yes Caregiver confirmed with patient/requestor that no other refills are due, in the near future, with this provider at this time: Yes The last office visit in the department: 01/23/2024 Does the patient have a future office visit with this provider/department: Yes 05/21/2024 Requested Prescriptions Pending Prescriptions Disp Refills gabapentin (NEURONTIN) 100 mg capsule 21 capsule 0 Sig: Take 3 capsules by mouth daily at bedtime for 180 days. Nicole Herrera LPN February 20, 2024 11:26 AM [facility]12-06-2024 Miscellaneous Notes* Telephone Encounter - Nicole Herrera LPN - 02/20/2024 11:20 AM EST Patient curly has not received her mail away pharmacy has not processed her Gabapentin rx as yet.She is out of the 7 day rx sent locally, now needs another rx sent locally. [facility] and get it sent to her. Pending rx to go to [facility] [place]. Please advise The patient has been identified by name and date of : Yes Caregiver verified no other encounters exist for this prescription request: Yes Caregiver confirmed with patient/requestor that no other refills are due, in the near future, with this provider at this time: Yes The last office visit in the department: 01/23/2024 Does the patient have a future office visit with this provider/department: Yes 05/21/2024 Requested Prescriptions Pending Prescriptions Disp Refills gabapentin (NEURONTIN) 100 mg capsule 21 capsule 0 Sig: Take 3 capsules by mouth daily at bedtime for 180 days. Nicole Herrera LPN February 20, 2024 11:26 AM [facility] Tele[facility] encounter Note * Telephone Encounter - Erika Polk LPN - 02/11/2024 1:44 PM EST Left a message that medication has been sent to the pharmacy. Erika Polk LPN [facility]11-27-2024 Miscellaneous Notes* Telephone Encounter - Erika Polk LPN - 02/11/2024 1:44 PM EST Left a message that medication has been sent to the pharmacy. Erika Polk LPN * Telephone Encounter - Paulo Scott MD - 02/11/2024 1:17 PM EST The following approved medication requests have been transmitted electronically. Requested Prescriptions Signed Prescriptions Disp Refills gabapentin (NEURONTIN) 100 mg capsule 21 capsule 0 Sig: Take 3 capsules by mouth daily at bedtime for 180 days. Authorizing Provider: PAULO SCOTT MD * Telephone Encounter - Marisel Randall RN - 02/11/2024 10:26 AM EST Patient reports she has not received her gabapentin refill [facility]. Reports she is out of medication and asking pcp to send short supplyto [facility]. Pended. [facility] Tele[facility] encounter Note * Telephone Encounter - Paulo Scott MD - 02/11/2024 1:17 PM EST The following approved medication requests have been transmitted electronically. Requested Prescriptions Signed Prescriptions Disp Refills gabapentin (NEURONTIN) 100 mg capsule 21 capsule 0 Sig: Take 3 capsules by mouth daily at bedtime for 180 days. Authorizing Provider: PAULO SCOTT MD [facility]11-27-2024 Telephone encounter Note* Telephone Encounter - Marisel Randall RN - 02/11/2024 10:26 AM EST Patient reports she has not received her gabapentin refill from mail order and [facility] 7 days. Reports she is out of medication and asking pcp to send short supplyto [facility]. Pended. [facility]11-08-2024 NoteHNO ID: [id number] Author: NORMAN GARCIA APRN.RESIDENTIAL DIRECTOR Service: ? Author Type: Nurse Practitioner Type: Progress Notes Filed: 01/23/2024 13:50 Note Text: SUBJECTIVE Keshia Rojas is a 73 year old female here today for a check up on her medical problems. Chief Complaint Patient presents with: Recheck Cough: for about 1 week. Moist productive HPI Keshia Rojas is a 73 year old female. She is an established patient of Paulo Scott MD. Here today for a 4 month follow up. Concerned about weight. Not sure what to do to help promote weight loss. Has not been on metformin for sugars before. Issues with a persistent cough the last week or so. Moist cough. Some wheezing at times. No issues with chest pain, chest tightness or shortness of breath. Compliant with medications. Her medications were reviewed today and her list is now up to date. Medications Current Outpatient Medications Medication Sig gabapentin (NEURONTIN) 100 mg capsule Take 3 capsules by mouth daily at bedtime for 180 days. diazePAM (VALIUM) 5 mg tablet Take 1 tablet by mouth at bedtime as needed (vertigo or anxiety) for up to 180 days. Do not start before September 24, 2023. levothyroxine (SYNTHROID) 88 mcg tablet Take 1 tablet by mouth once daily. Take on empty stomach. For Thyroid amLODIPine (NORVASC) 5 mg tablet Take 1 tablet by mouth once daily. diclofenac (VOLTAREN) 1 % topical gel Apply 2 g to affected area four times daily. cyclobenzaprine (FLEXERIL) 5 mg tablet Take 1 tablet by mouth three times a day as needed for muscle spasm. lidocaine (LIDODERM) 5 % Apply 1 Patch as directed once daily. Remove old patch after wearing for 12 hours and then 12 hours later apply new patch for 12 hours on the site and 12 hours off the site. Location: right lower back. ipratropium-albuterol (DUONEB) 0.5 mg-3 mg(2.5 mg base)/3 mL nebu Inhale 3 mL as instructed every 6 hours. Unit dose pack. dr Park [facility]. spironolactone (ALDACTONE) 25 mg tablet Take 1 tablet by mouth once daily. (Patient taking differently: Take 25 mg by mouth once daily as needed. When edema worse) aspirin, enteric coated (ASPIRIN, ENTERIC COATED) 81 mg EC tablet Take 81 mg by mouth. budesonide (PULMICORT) 0.5 mg/2 mL nebulizer solution Use 0.5 mg via nebulizer once daily. cranberry fruit concentrate (AZO CRANBERRY) 250 mg chew Take by mouth. cholecalciferol, vitamin D3, 10 mcg (400 unit) cap Take 400 Units by mouth once daily. acetaminophen (TYLENOL) 325 mg tablet Take 650 mg by mouth every 6 hours as needed. Tylenol arthritis multivitamin ORAL tablet Take 1 tablet by mouth twice daily. benzonatate (TESSALON PERLE) 100 mg capsule Take 1-2 capsules by mouth three times a day as needed for cough. Artificial Tear, Hypromellose, (SYSTANE GEL) 0.3 % gel 1 Drop daily at bedtime. (Patient not taking: Reported on 09/17/2023) COMPOUNDED PRESCRIPTION SEMI ELECTRIC HOSPITAL BED AND [...] medications for this visit. ALLERGIES Allergen Reactions Adhesive Rash ECG patch [...] mandibular pain, lymphadenopathy, possible angio edema per [facility] ER note 04/24/2022 Meclizine Swelling URINARY RETENTION,FACE FELT FUNNY Metoprolol GI Upset headache.itching.hives. Myrbetriq [Mirabegr* Other: See Comments elevated BP Prevacid [Lansopraz* GI Upset GAS,BURPING HEADACHE Prilosec [Omeprazol* Diarrhea Tape [Adhesive Tape* Rash Paper tape Tizanidine Other: See Comments increased pain Zelnorm [Tegaserod * Hives ACTIVE PROBLEM LIST 1) Laparotomy 2) Joann gastroplasty 3) Wedge the gastric fundus 4) Robbie fundoplication (A priority) Comment: 06/30/2011 Keshia Rojas is a 61 year old female with history of hypertension, referred for surgical opinion regarding large hiatal hernia. Patienthad prior admission for shortness of johnny (more content not included)...[facility]11-08-2024 History of Present illness Narrative* Norman Garcia APRN.RESIDENTIAL DIRECTOR - 01/23/2024 1:21 PM EST SUBJECTIVE Keshia Rojas is a 73 year old female here today for a check up on her medical problems. Chief Complaint Patient presents with: Recheck Cough: for about 1 week. Moist productive HPI Keshia Rojas is a 73 year old female. She is an established patient of Paulo Scott MD. Here today for a 4 month follow up. Concerned about weight. Not sure what to do to help promote weight loss. Has not been on metformin for sugars before. Issues with a persistent cough the last week or so. Moist cough. Some wheezing at times. No issues with chest pain, chest tightness or shortness of breath. Compliant with medications. Her medications were reviewed today and her list is now up to date. Medications Current Outpatient Medications Medication Sig gabapentin (NEURONTIN) 100 mg capsule Take 3 capsules by mouth daily at bedtime for 180 days. diazePAM (VALIUM) 5 mg tablet Take 1 tablet by mouth at bedtime as needed (vertigo or anxiety) for up to 180 days. Do not start before September 24, 2023. levothyroxine (SYNTHROID) 88 mcg tablet Take 1 tablet by mouth once daily. Take on empty stomach. For Thyroid amLODIPine (NORVASC) 5 mg tablet Take 1 tablet by mouth once daily. diclofenac (VOLTAREN) 1 % topical gel Apply 2 g to affected area four times daily. cyclobenzaprine (FLEXERIL) 5 mg tablet Take 1 tablet by mouth three times a day as needed for muscle spasm. lidocaine (LIDODERM) 5 % Apply 1 Patch as directed once daily. Remove old patch after wearing for 12 hours and then 12 hours later apply new patch for 12 hours on the site and 12 hours off the site. Location: right lower back. ipratropium-albuterol (DUONEB) 0.5 mg-3 mg(2.5 mg base)/3 mL nebu Inhale 3 mL as instructed every 6hours. Unit dose pack. dr Park [facility]. spironolactone (ALDACTONE) 25 mg tablet Take 1 tablet by mouth once daily. (Patient taking differently: Take 25 mg by mouth once daily as needed. When edema worse) aspirin, enteric coated (ASPIRIN, ENTERIC COATED) 81 mg EC tablet Take 81 mg by mouth. budesonide (PULMICORT) 0.5 mg/2 mL nebulizer solution Use 0.5 mg via nebulizer once daily. cranberry fruit concentrate (AZO CRANBERRY) 250 mg chew Take by mouth. cholecalciferol, vitamin D3, 10 mcg (400 unit) cap Take 400 Units by mouth once daily. acetaminophen (TYLENOL) 325 mg tablet Take 650 mg by mouth every 6 hours as needed. Tylenol arthritis multivitamin ORAL tablet Take 1 tablet by mouth twice daily. benzonatate (TESSALON PERLE) 100 mg capsule Take 1-2 capsules by mouth three times a day as needed for cough. Artificial Tear, Hypromellose, (SYSTANE GEL) 0.3 % gel 1 Drop daily at bedtime. (Patient not taking: Reported on 09/17/2023) COMPOUNDED PRESCRIPTION SEMI ELECTRIC HOSPITAL BED AND [...] medications for this visit. ALLERGIES Allergen Reactions Adhesive Rash ECG patch [...] mandibular pain, lymphadenopathy, possible angio edema per [facility] ER note 04/24/2022 Meclizine Swelling URINARY RETENTION,FACE FELT FUNNY Metoprolol GI Upset headache.itching.hives. Myrbetriq [Mirabegr* Other: See Comments elevated BP Prevacid [Lansopraz* GI Upset GAS,BURPING HEADACHE Prilosec [Omeprazol* Diarrhea Tape [Adhesive Tape* Rash Paper tape Tizanidine Other: See Comments increased pain Zelnorm [Tegaserod * Hives ACTIVE PROBLEM LIST 1) Laparotomy 2) Joann gastroplasty 3) Wedge the gastric fundus 4) Robbie fundoplication (A priority) Comment: 06/30/2011 Keshia Rojas is a 61 year old female with history of hypertension, referred for surgical opinion regarding large hiatal hernia. Patienthad prior admission for shortness of breath and hematemsis. During hospitalization, required blood transfusion. Work up significant for large symptomatic type III hiatal hernia noted on barium esophagram. On 06/30/2011 patient had 1) Laparotomy 2) Joann gastroplasty 3) Wedge the gastric fundus 4) Robbie fundoplication with Dr. Charlton. Plan: - soft mushy antireflux diet - progressive ambulation - oral pain managment . 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 Free T3 2.6. Plan: - Synthroid 50 mcg po at home . 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 Davon Infante ([facility]) Cough - 07/11/2019 Comment: Reviewed that had stress test and was referred to pizza cook for further evaluation of cough. Bilateral Leg Edema - 07/11/2019 Comment: Controlled with Dr. Gini sanon Neck Pain, Chronic - 09/16/2017 Acute Pain of Left Shoulder - 06/04/2017 Falls, Subsequent Encounter - 06/02/2017 Vertigo - 05/07/2017 Lipoma of Right Upper Extremity - 10/24/2015 Ifg (Impaired Fasting Glucose) - 03/30/2015 Cephalalgia - 11/28/2014 Anxiety - 10/22/2013 Marital Conflict - 10/22/2013 Stress Incontinence - 09/02/2013 Urge Incontinence - 09/02/2013 Frequency of Urination - 09/02/2013 Nocturia - 09/02/2013 Kidney Stone - 09/02/2013 Reversed Peristalsis - 06/23/2013 Comment: retrograde persistalsis of esphagus causing episode of emesis Oab (Overactive Bladder) - 06/16/2013 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 Charlton) Dysphagia - 02/05/2012 Obesity Anemia - 10/18/2010 Essential Hypertension Mixed Hyperlipidemia Coronary Atherosclerosis Irritable Bowel Syndrome Dysmetabolic Syndrome X Social History Tobacco Use Smoking status: Never Smokeless tobacco: Never Vaping Use Vaping status: Never Used Substance Use Topics Alcohol use: Yes Comment: occasionally rare Drug use: No Review of Systems Constitutional: Negative. Respiratory: Positive for cough and wheezing. Negative for apnea, choking, chest tightness and shortness of breath. Cardiovascular: Negative. OBJECTIVE BP 128/78 Pulse 80 Temp (Src) 97 (Tympanic) Wt 199 lb 4.7 oz (90.4kg) SpO2 97% Physical Exam Vitals and nursing note reviewed. Constitutional: General: She is awake. She is not in acute distress. Appearance: Normal appearance. She is well-developed and well-groomed. She is not ill-appearing, toxic-appearing or diaphoretic. HENT: Head: Normocephalic. Right Ear: External ear normal. Left Ear: External ear normal. Nose: Nose normal. Eyes: General: Vision grossly intact. Conjunctiva/sclera: Conjunctivae normal. Pupils: Pupils are equal, round, and reactive to light. Neck: Vascular: No JVD. Trachea: Trachea normal. Cardiovascular: Rate and Rhythm: Normal rate and regular rhythm. Pulses: Normal pulses. Heart sounds: Normal heart sounds. No murmur heard. Pulmonary: Effort: Pulmonary effort is normal. No accessory muscle usage, prolonged expiration or respiratory distress. Breath sounds: Normal breath sounds. Musculoskeletal: Cervical back: Neck supple. Skin: General: Skin is warm and dry. Capillary Refill: Capillary refill takes less than 2 seconds. Neurological: General: No focal deficit present. Mental Status: She is alert and oriented to person, place, and time. Mental status is at baseline. Psychiatric: Attention and Perception: Attention and perception normal. Mood and Affect: Mood and affect normal. Speech: Speech normal. Behavior: Behavior normal. Behavior is cooperative. Thought Content: Thought content normal. Cognition and Memory: Cognition and memory normal. Judgment: Judgment normal. ASSESSMENT/PLAN: 1. Acute cough - ICD9: 786.2, ICD10: R05.1 (primary diagnosis) She would like swabbed to ensure no COVID/flu/rsv. Inez heard, suspect viral etiology at this point. - COVID & INFLUENZA A/B & RSV PCR, ROUTINE - BENZONATATE 100 MG CAPSULE 2. Acquired hypothyroidism - ICD9: 244.9, ICD10: E03.9 - Instructed patient on importance of taking on an empty stomach either first thing in the morning or at bedtime. 3. Spinal stenosis of lumbar region, unspecified whether neurogenic claudication present - ICD9: 724.02, ICD10: M48.061 Manageable. 4. Primary hypertension - ICD9: 401.9, ICD10: I10 - Controlled - Continue current medications - Recommend home blood pressure monitoring, to bring results to next visit - Encouraged sodium restriction, DASH or Mediterranean diet - Recommend regular aerobic exercise 5. Mixed hyperlipidemia - ICD9: 272.2, ICD10: E78.2 - Controlled - Continue current medications - Counseled on healthy diet and regular exercise 6. Vitamin D deficiency - ICD9: 268.9, ICD10: E55.9 Stable. 7. Diet-controlled diabetes mellitus (HCC) - ICD9: 250.00, ICD10: E11.9 - Controlled - Counseled on healthy diet and regular exercise - Discussed need for and benefit of weight loss. BMI 34.21 kg/(m^2) - Discussed we could consider adding metformin to help with weight control but she would like to hold off on that at this time. 8. Screening for depression - ICD9: V79.0, ICD10: Z13.31 - DEPRESSION SCREENING Portions of this note have been entered by ancillary staff. I have reviewed and when necessary edited, so that they are an adequate record of my encounter with this patient Please note that parts of this document were created using voice recognition software and therefore may contain grammatical errors. Patient verbalizes understanding of instructions from today's visit and in agreement with treatmentplan. Questions answered. Agrees to call the office if questions, concerns of issues with acute symptoms not improving or if they worsen. See diagnoses and orders for additional plan(s). Allergies and medications were reviewed, list was updated, and refills given if needed. Past medical, surgical, social, and family history reviewed and updated as appropriate. Encouraged proper diet & exercise as well as compliance with taking medications. Age- appropriate health preventative measures were discussed. Return if symptoms worsen or fail to improve, for Keep next scheduled appointment.. Norman Garcia APRN-DARYL documented [facility] Telephone encounter Note * Telephone Encounter - Salena Mock - 11/11/2023 10:17 AM EDT Prescription Refill Information The patient has been identified by name and date of : Yes Caregiver verified no other encounters exist for this prescription request: Yes Caregiver confirmed with patient/requestor that no other refills are due, in the near future, with this provider at this time: Yes The last office visit in the department: 10-17-23 Does the patient have a future office visit with this provider/department: Yes Requested Prescriptions Pending Prescriptions Disp Refills levothyroxine (SYNTHROID) 88 mcg tablet 90 tablet 3 Sig: Take 1 tablet by mouth once daily. Take on empty stomach. For Thyroid gabapentin (NEURONTIN) 100 mg capsule 270 capsule 1 Sig: Take 3 capsules by mouth daily at bedtime for 180 days. amLODIPine (NORVASC) 5 mg tablet 90 tablet 3 Sig: Take 1 tablet by mouth once daily. Salena Rowan November 11, 2023 10:20 AM [facility]08-27-[facility]24 Miscellaneous Notes* Telephone Encounter - Salena Mock - 11/11/2023 10:17 AM EDT Prescription Refill Information The patient has been identified by name and date of : Yes Caregiver verified no other encounters exist for this prescription request: Yes Caregiver confirmed with patient/requestor that no other refills are due, in the near future, with this provider at this time: Yes The last office visit in the department: 10-17-23 Does the patient have a future office visit with this provider/department: Yes Requested Prescriptions Pending Prescriptions Disp Refills levothyroxine (SYNTHROID) 88 mcg tablet 90 tablet 3 Sig: Take 1 tablet by mouth once daily. Take on empty stomach. For Thyroid gabapentin (NEURONTIN) 100 mg capsule 270 capsule 1 Sig: Take 3 capsules by mouth daily at bedtime for 180 days. amLODIPine (NORVASC) 5 mg tablet 90 tablet 3 Sig: Take 1 tablet by mouth once daily. Salena Rowan November 11, 2023 10:20 AM documented in this encounterMedina Hospital08-02-2024 History of Present illness Narrative* Juan Rodriguez, MOLDING MACHINE SETTER.AIRPLANE DISPATCHER - 10/17/2023 10:20 AM EDT SUBJECTIVE: Depression Screening Never done RSV Vaccine(1 - 1-dose 60+ series) Never done Shingrix Vaccine(2 of 3) due on 05/01/2012 DTaP,Tdap,Td Vaccine(1 - Tdap) due on 11/19/2019 Covid-19 Vaccine( - season) due on 11/15/2022 Advance Directive Discussion due on 03/17/2023 Mammogram Screening due on 09/14/2023 HPI Keshia Rojas is a 73 year old female. PMH significant for ACTIVE [...] today for routine follow up visit. She presents today regarding possible hemorrhoid she noted yesterday when washing up in the evening. Notes prior history of hemorrhoids. Some pain with bowel movement in the area noted yesterday. Notes chronic constipation, typically bowel movements a couple times a week. She reports 3 bowel movements yesterday, partially firm and partially soft. She did not try any home remedies as yet. She notes no BRBPR black or tarry stool. Chronic intermittent abdominal pain relieved with BM unchanged fromusual baseline. Notes she has been out of constipation remedy for a couple of weeks. Review of medications indicates she has been taking lactulose per Dr. Casper surgery scheduling coordinator. She notes limited fluid intake yesterday due to working and unable to. She wears an absorbent undergarment routinely. She is s/p colonoscopy [address] Casper. Hemorrhoids are not mentioned in the report. 1 polyp was removed. Review of Systems Constitutional: Negative. HENT: Negative. Respiratory: Negative. Cardiovascular: Negative. Gastrointestinal: Positive for rectal pain. Musculoskeletal: Positive for arthralgias. Objective BP 128/66 (BP Site: Left Arm, BP Position: Sitting, BP Cuff Size: Large Adult) Pulse 83 Resp 14 Ht 162.6 cm (5' 4) Wt 87.3 kg (192 lb 7.4 oz) SpO2 95% BMI 33.04 kg/m Physical Exam Vitals and nursing note reviewed. Constitutional: Appearance: Normal appearance. HENT: Head: Normocephalic and atraumatic. Eyes: Conjunctiva/sclera: Conjunctivae normal. Neck: Thyroid: No thyromegaly. Vascular: No JVD. Cardiovascular: Rate and Rhythm: Normal rate and regular rhythm. Heart sounds: Normal heart sounds. Pulmonary: Effort: Pulmonary effort is normal. Breath sounds: Normal breath sounds. Abdominal: General: Bowel sounds are normal. Palpations: Abdomen is soft. Comments: + external hemorrhoid x1,no bleeding, does not appear thrombosed Musculoskeletal: Right lower leg: Edema (1+) present. Left lower leg: Edema (1+) present. Lymphadenopathy: Cervical: Left cervical: No superficial cervical adenopathy. Skin: General: Skin is warm and dry. Neurological: General: No focal deficit present. Mental Status: She is alert and oriented to person, place, and time. Senior Sourcing Manager present, NIMO. ALLERGIES Allergen Reactions Adhesive Rash ECG patch [...] mandibular pain, lymphadenopathy, possible angio edema per [facility] ER note 04/24/2022 Meclizine Swelling URINARY RETENTION,FACE FELT FUNNY Metoprolol GI Upset headache.itching.hives. Myrbetriq [Mirabegr* Other: See Comments elevated BP Prevacid [Lansopraz* GI Upset GAS,BURPING HEADACHE Prilosec [Omeprazol* Diarrhea Tape [Adhesive Tape* Rash Paper tape Tizanidine Other: See Comments increased pain Zelnorm [Tegaserod * Hives Medication lactulose 10 gram/15 mL solution Take 30 mL by mouth daily at bedtime. Previously ordered by Dr Casper, 30 day supply for now hydrocortisone (ANUSOL-HC) 2.5 % rectal cream by RECTAL route two times a day for 7 days. diazePAM (VALIUM) 5 mg tablet Take 1 tablet by mouth at bedtime as needed (vertigo or anxiety) for up to 180 days. Do not start before September 24, 2023. levothyroxine (SYNTHROID) 88 mcg tablet Take 1 tablet by mouth once daily. Take on empty stomach. For Thyroid amLODIPine (NORVASC) 5 mg tablet Take 1 tablet by mouth once daily. diclofenac (VOLTAREN) 1 % topical gel Apply 2 g to affected area four times daily. cyclobenzaprine (FLEXERIL) 5 mg tablet Take 1 tablet by mouth three times a day as needed for muscle spasm. lidocaine (LIDODERM) 5 % Apply 1 Patch as directed once daily. Remove old patch after wearing for 12 hours and then 12 hours later apply new patch for 12 hours on the site and 12 hours off the site. Location: right lower back. ipratropium-albuterol (DUONEB) 0.5 mg-3 mg(2.5 mg base)/3 mL nebu Inhale 3 mL as instructed every 6hours. Unit dose pack. dr Park pulmonology. gabapentin (NEURONTIN) 100 mg capsule Take 3 capsules by mouth daily at bedtime for 180 days. Do not start before April 06, 2023. spironolactone (ALDACTONE) 25 mg tablet Take 1 tablet by mouth once daily. (Patient taking differently: Take 25 mg by mouth once daily as needed. When edema worse) Artificial Tear, Hypromellose, (SYSTANE GEL) 0.3 % gel 1 Drop daily at bedtime. (Patient not taking: Reported on 09/17/2023) aspirin, enteric coated (ASPIRIN, ENTERIC COATED) 81 [...] Take 1 tablet by mouth twice daily. 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 Chavarria) No date: Irritable bowel syndrome No date: Obesity No date: Osteoarthritis No date: Other and unspecified hyperlipidemia No date: Punctate keratitis of left eye 06/23/2013: Reversed peristalsis Comment: retrograde persistalsis of esphagus causing episode of emesis No date: Spondylosis No date: TMJ arthritis Comment: right No date: Unspecified essential hypertension No date: Unspecified hypothyroidism Social History Tobacco Use Smoking [...] Abs Lymph 1.00 - 4.00 k/uL 2.95 [place]% % 10.2 Abs [place] <0.87 k/uL 0.93 (H) Eosin% % 8.0 [...] 31.0 - 80.0 ng/mL 61.8 ASSESSMENT/PLAN: 1. External hemorrhoid - ICD9: 455.3, ICD10: K64.4 Recommend adequate fluid intake, aim for 64 ounces per day, resume lactulose. Previously ordered byDr. Casper gastroenterology but will send 30-day supply to pharmacy for now as she has been out for2 weeks. Topical hydrocortisone cream in affected area x 7 days. Sitz bath or soak in tub daily. Tolet us know if not continuing to improve. - LACTULOSE 10 GRAM/15 ML ORAL SOLUTION - HYDROCORTISONE 2.5 % TOPICAL CREAM WITH PERINEAL APPLICATOR Juan Rodriguez APRN.AIRPLANE DISPATCHER Medical Decision Making: Problems: Low: Acute, uncomplicated illness or injury Risk: Moderate: Drug management Medical Decision Making Level: 3 - Low documented in this encounterMedina Hospital08-02-2024 NoteHNO ID: [id number] Author: JUAN RODRIGUEZ APRN.CNS Service: ? Author Type: Nurse Specialist Type: Progress Notes Filed: 10/17/2023 10:52 Note Text: SUBJECTIVE: Depression Screening Never done RSV Vaccine(1 - 1-dose 60+ series) Never done Shingrix Vaccine(2 of 3) due on 05/01/2012 DTaP,Tdap,Td Vaccine(1 - Tdap) due on 11/19/2019 Covid-19 Vaccine(3 - 2022- season) due on 11/15/2022 Advance Directive Discussion due on 03/17/2023 Mammogram Screening due on 09/14/2023 HPI Keshia Rojas is a 73 year old female. PMH significant for ACTIVE [...] today for routine follow up visit. She presents today regarding possible hemorrhoid she noted yesterday when washing up in the evening. Notes prior history of hemorrhoids. Some pain with bowel movement in the area noted yesterday. Notes chronic constipation, typically bowel movements a couple times a week. She reports 3 bowel movements yesterday, partially firm and partially soft. She did not try any home remedies as yet. She notes no BRBPR black or tarry stool. Chronic intermittent abdominal pain relieved with BM unchanged from usual baseline. Notes she has been out of constipation remedy for a couple of weeks. Review of medications indicates she has been taking lactulose per Dr. Casper surgery scheduling coordinator. She notes limited fluid intake yesterday due to working and unable to. She wears anabsorbent undergarment routinely. She is s/p colonoscopy [address] Casper. Hemorrhoids are not mentioned in the report. 1 polyp was removed. Review of Systems Constitutional: Negative. HENT: Negative. Respiratory: Negative. Cardiovascular: Negative. Gastrointestinal: Positive for rectal pain. Musculoskeletal: Positive for arthralgias. Objective BP 128/66 (BP Site: Left Arm, BP Position: Sitting, BP Cuff Size: Large Adult) Pulse 83 Resp 14 Ht 162.6 cm (5' 4) Wt 87.3 kg (192 lb 7.4 oz) SpO2 95% BMI 33.04 kg/m? Physical Exam Vitals and nursing note reviewed. Constitutional: Appearance: Normal appearance. HENT: Head: Normocephalic and atraumatic. Eyes: Conjunctiva/sclera: Conjunctivae normal. Neck: Thyroid: No thyromegaly. Vascular: No JVD. Cardiovascular: Rate and Rhythm: Normal rate and regular rhythm. Heart sounds: Normal heart sounds. Pulmonary: Effort: Pulmonary effort is normal. Breath sounds: Normal breath sounds. Abdominal: General: Bowel sounds are normal. Palpations: Abdomen is soft. Comments: + external hemorrhoid x1,no bleeding, does not appear thrombosed Musculoskeletal: Right lower leg: Edema (1+) present. Left lower leg: Edema (1+) present. Lymphadenopathy: Cervical: Left cervical: No superficial cervical adenopathy. Skin: General: Skin is warm and dry. Neurological: General: No focal deficit present. Mental Status: She is alert and oriented to person, place, and time. Senior Sourcing Manager present, NIMO. ALLERGIES Allergen Reactions Adhesive Rash ECG patch [...] mandibular pain, lymphadenopathy, possible angio edema per [facility] ER note 04/24/2022 Meclizine Swelling URINARY RETENTION,FACE FELT FUNNY Metoprolol GI Upset headache.itching.hives. Myrbetriq [Mirabegr* Other: See Comments elevated BP Prevacid [Lansopraz* GI Upset GAS,BURPING HEADACHE Prilosec [Omeprazol* Diarrhea Tape [Adhesive Tape* Rash Paper tape Tizanidine Other: See Comments increased (more content not included)...[facility]08-02-2024 Telephone encounter Note* Telephone Encounter - Erika Polk LPN - 10/17/2023 8:28 AM EDT Pt called in to report she has a lump next to anus. Pt called Dr. Casper's office and they told herto call her pcp. Pt reports she noticed this yesterday. The lump is hard and painful. denies fever,bleeding. Pt also reports she is incontinent. Pt scheduled for apt today 10-17-23 with provider/team. Erika Polk LPN [facility]08-02-2024 Miscellaneous Notes* Telephone Encounter - Erika Polk LPN - 10/17/2023 8:28 AM EDT Pt called in to report she has a lump next to anus. Pt called Dr. Casper's office and they told herto call her pcp. Pt reports she noticed this yesterday. The lump is hard and painful. denies fever,bleeding. Pt also reports she is incontinent. Pt scheduled for apt today 10-17-23 with provider/team. Erika Polk LPN documented in this encounterMedina Hospital07-31-2024 NotePatient Outreach (INTMMN) KESHIA ROJAS ([id number]) 1950 F Date Time Provider Department 10/15/23 PAULO SCOTT INTMMN During your visit today, we recorded the following information about you: Allergies As of Date: 10/15/2023 Noted Allergy Reaction ADHESIVE 02/12/2023 2 - Rash Comments: ECG patch made skin red and raw; needs hypoallergenic patches for ECG and other testing needing patches AGGRENOX (ASPIRIN-DIPYRIDAMOLE) 05/27/2011 14 - Other: See Comments Comments: Headache BACTRIM (SULFAMETHOXAZOLE-TRIMETH*03/20/2006 Comments: dizzy, redness, face flushed BETADINE (POVIDONE-IODINE) 11/04/2006 2 - Rash CETACAINE ([id number]*09/11/2012 14 - Other: See Comments Comments: excessive mucous production CIGARETTE SMOKE 02/12/2023 12 - Shortness of Breath Comments: Hard to breathe CODEINE 03/07/2006 5 - Intolerance CORTISONE 12 - Shortness of Breath Comments: injection was given and swelled and had trouble breathing DEPO-MEDROL (METHYLPREDNISOLONE) 02/12/2023 14 - Other: See Comments Comments: FACE SWELLED AFTER CORTISONE SHOT IN KNEE DETROL (TOLTERODINE TARTRATE) 03/07/2006 5 - Intolerance Comments: HEAD ACHE ,DRY MOUTH DITROPAN (OXYBUTYNIN CHLORIDE) 03/07/2006 5 - Intolerance Comments: DIZZY,SUN SENSITIVE LATEX 11/03/2009 2 - Rash LISINOPRIL 04/26/2022 5 - Intolerance Comments: mandibular pain, lymphadenopathy, possible angio edema per [facility] ER note 04/24/2022 MECLIZINE 03/07/2006 7 - Swelling Comments: URINARY RETENTION,FACE FELT FUNNY METOPROLOL 04/24/2006 8 - GI Upset Comments: headache.itching.hives. MYRBETRIQ (MIRABEGRON) 12/26/2014 14 - Other: See Comments Comments: elevated BP PREVACID (LANSOPRAZOLE) 03/07/2006 8 - GI Upset Comments: GAS,BURPING HEADACHE PRILOSEC (OMEPRAZOLE MAGNESIUM) 6 - Diarrhea TAPE (ADHESIVE TAPE (ROSINS)) 02/12/2023 2 - Rash Comments: Paper tape TIZANIDINE 03/24/2014 14 - Other: See Comments Comments: increased pain ZELNORM (TEGASEROD HYDROGEN RACHELL*03/07/2006 4 - Hives Date Reviewed: 09/17/2023 Reviewed by: Lisa Jasmine LPN - Fully Assessed Visit Diagnosis:Encounter for screening mammogram for breast cancer [Z12.31] Order(s):[facility] SCREENING [facility] [[id number]] Order #: [id number] FUTURE Prescriptions as of 10/20/2023 - lactulose 10 gram/15 mL solution Take 30 mL by mouth daily at bedtime. Previously ordered by Dr Casper, 30 day supply for now - hydrocortisone (ANUSOL-HC) 2.5 % rectal cream by RECTAL route two times a day for 7 days. - diazePAM (VALIUM) 5 mg tablet Take 1 tablet by mouth at bedtime as needed (vertigo or anxiety) for up to 180 days. Do not start before September 24, 2023. - levothyroxine (SYNTHROID) 88 mcg tablet Take 1 tablet by mouth once daily. Take on empty stomach. For Thyroid - amLODIPine (NORVASC) 5 mg tablet Take 1 tablet by mouth once daily. - diclofenac (VOLTAREN) 1 % topical gel Apply 2 g to affected area four times daily. - cyclobenzaprine (FLEXERIL) 5 mg tablet Take 1 tablet by mouth three times a day as needed for muscle spasm. - lidocaine (LIDODERM) 5 % Apply 1 Patch as directed once daily. Remove old patch after wearing for 12 hours and then 12 hours later apply new patch for 12 hours on the site and 12 hours off the site. Location: right lower back. - ipratropium-albuterol (DUONEB) 0.5 mg-3 mg(2.5 mg base)/3 mL nebu Inhale 3 mL as instructed every 6 hours. Unit dose pack. dr Brown pulmonology. - gabapentin (NEURONTIN) 100 mg capsule Take 3 capsules by mouth daily at bedtime for 180 days. Do not start before April 06, 2023. - spironolactone (ALDACTONE) 25 mg tablet Take 1 tablet by mouth once daily. - Artificial Tear, Hypromellose, (SYSTANE GEL) 0.3 % gel 1 Drop daily at bedtime. - aspirin, enteric coated (ASPIRIN, ENTERIC COATED) 81 mg EC tablet Take 81 mg by mouth. - budesonide (PULMICORT) 0.5 mg/2 mL nebulizer solution Use 0.5 mg via nebulizer once daily. - cranberry fruit concentrate (AZO CRANBERRY) 250 mg chew Take by mouth. - cholecalciferol, vitamin D3, 10 mcg (400 [...] TO SWALLOW. Problem List As Of Date 10/15/2023 Noted Resolved Essential hypert (more content not included)...[facility] 09-22-2023 Telephone encounter Note* Telephone Encounter - Paulo Scott MD - 09/22/2023 7:58 PM EDT The following approved medication requests have been transmitted electronically. Requested Prescriptions Signed Prescriptions Disp Refills diazePAM (VALIUM) 5 mg tablet 30 tablet 5 Sig: Take 1 tablet by mouth at bedtime as needed (vertigo or anxiety) for up to 180 days. Do not start before September 24, 2023. Authorizing Provider: PAULO SCOTT MD [facility]07-08-2024 Miscellaneous Notes* Telephone Encounter - Paulo Scott MD - 09/22/2023 7:58 PM EDT The following approved medication requests have been transmitted electronically. Requested Prescriptions Signed Prescriptions Disp Refills diazePAM (VALIUM) 5 mg tablet 30 tablet 5 Sig: Take 1 tablet by mouth at bedtime as needed (vertigo or anxiety) for up to 180 days. Do not start before September 24, 2023. Authorizing Provider: PAULO SCOTT MD * Telephone Encounter - Jessica Saini LPN - 09/22/2023 9:33 AM EDT Pt calls to report that she had OV 09/17/23 and [facility]. Pt is asking if rx can be sent to [facility] instead. Jessica Saini LPN documented in this encounterMedina Hospital07-08-2024 Telephone encounter Note * Telephone Encounter - Jessica Saini LPN - 09/22/2023 9:33 AM EDT Pt calls to report that she had OV 09/17/23 and rx for diazepam when to [facility] instead of [facility]. Pt is asking if rx can be sent to [facility] instead. Jessica Saini LPN [facility]07-03-2024 NoteHNO ID: [id number] Author: PAULO SCOTT MD Service: ? Author Type: Physician Type: Progress Notes Filed: 10/19/2023 18:42 Note Text: This note was created using Pollfishriter. Subjective Keshia Rojas is a 73 year old female. Patient presents with: F/U 6 months: Labs prior SUBJECTIVE: Keshia Rojas is a 73 year old year old lady here today for 6 month follow up appointment for review of medical conditions. Noted toes get stepped on at work.Toes with some redness. Great toenails with yellow discoloration and onycholysis. Injection improved pain in back for 3 weeks but pain returned. Will follow up with Dr. Paz. Work keeps adding her to schedule though not supposed to work so many hours. Supposed to have 2 days off. No only given Friday off. Lactulose at night helps with bowels. Dr. Pennie chuins GI issues. Diazepam still helps for anxiety. Helps with rest. 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 Charlton) Cataracts, both eyes Coronary atherosclerosis of unspecified type of vessel, quartz valley or graft minimal plaque on cath 08/06/2006 DVT (deep venous thrombosis) (HCC) 2010 Right leg OCTOBER 2009 NOT TREATED Dysmetabolic syndrome X Esophageal reflux Fibromyalgia better with Lyrica Floppy eyelid syndrome Hiatal hernia Large when seen on EGD 10/2010 at [facility] (Dr. 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 levothyroxine (SYNTHROID) 88 mcg tablet Take 1 tablet by mouth once daily. Take on empty stomach. For Thyroid amLODIPine (NORVASC) 5 mg tablet Take 1 tablet by mouth once daily. diazePAM (VALIUM) 5 mg tablet Take 1 tablet by mouth at bedtime as needed (vertigo or anxiety) for up to 90 days. diclofenac (VOLTAREN) 1 % topical gel Apply 2 g to affected area four times daily. cyclobenzaprine (FLEXERIL) 5 mg tablet Take 1 tablet by mouth three times a day as needed for muscle spasm. lidocaine (LIDODERM) 5 % Apply 1 Patch as directed once daily. Remove old patch after wearing for 12 hours and then 12 hours later apply new patch for 12 hours on the site and 12 hours off the site. Location: right lower back. ipratropium-albuterol (DUONEB) 0.5 mg-3 mg(2.5 mg base)/3 mL nebu Inhale 3 mL as instructed every 6 hours. Unit dose pack. dr Park pulmonology. gabapentin (NEURONTIN) 100 mg capsule Take 3 capsules by mouth daily at bedtime for 180 days. Do not start before April 06, 2023. spironolactone (ALDACTONE) 25 mg tablet Take 1 tablet by mouth once daily. (Patient taking differently: Take 25 mg by mouth once daily as needed. When edema worse) aspirin, enteric coated (ASPIRIN, ENTERIC COATED) 81 [...] Take 1 tablet by mouth twice daily. Artificial Tear, Hypromellose, (SYSTANE GEL) 0.3 % gel 1 Drop daily at bedtime. (Patient not taking: Reported on 09/17/2023) No current facility-administered medications for this visit. Review of Systems Objective BP 128/78 Pulse 87 Temp 36.9 ?C (98.4 ?F) Resp 18 Wt 86.6 kg (191 lb) SpO2 97% BMI 32.79 kg/m? Physical Exam Latest Ref Rng 02/19/2023 08/29/2023 WBC 3.70 - 11.00 k/uL 9.12 8.49 RBC 3.90 - 5.20 m/uL 4.50 4.78 Hemoglobin 11.5 - 15.5 g/dL 14.0 14.6 Hematocrit 36.0 - 46.0 % 42.7 44.6 MCV 80.0 - 100.0 fL 94.9 93.3 MCH 26.0 - 34.0 pg 31.1 30.5 MCHC 30.5 - 36.0 g/dL 32.8 32.7 RDW-CV 11.5 - 15.0 % 13.5 13.3 Platelet Count 150 - 400 k/uL 370 342 MPV 9.0 - 12.7 fL 9.8 10.2 Neut% % 47.9 51.0 Abs Neut (ANC) 1.45 - 7.50 k/uL 4.36 4.33 Lymph% % 32.3 31.4 Abs Lymph 1.00 - 4.00 k/uL 2.95 2.67 [place]% % 10.2 8.2 (more content not included)...[facility] 09-17-2023 History of Present illness Narrative* Paulo Scott MD - 09/17/2023 2:14 PM EDT This note was created using NoteWriter. Subjective Keshia Rojas is a 73 year old female. Patient presents with: F/U 6 months: Labs prior SUBJECTIVE: Keshia Rojas is a 73 year old year old lady here today for 6 month follow up appointment for reviewof medical conditions. Noted toes get stepped on at work.Toes with some redness. Great toenails with yellow discoloration and onycholysis. Injection improved pain in back for 3 weeks but pain returned. Will follow up with Dr. Paz. Work keeps adding her to schedule though not supposed to work so many hours. Supposed to have 2 days off. No only given Friday off. Lactulose at night helps with bowels. Dr. Casper managins GI issues. Diazepam still helps for anxiety. Helps with rest. 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 Charlton) Cataracts, both eyes Coronary atherosclerosis of unspecified type of vessel, quartz valley or graft minimal plaque on cath 08/06/2006 DVT (deep venous thrombosis) ([facility]) 2010 Right leg OCTOBER 2009 NOT TREATED Dysmetabolic syndrome X Esophageal reflux Fibromyalgia better with Lyrica Floppy eyelid syndrome Hiatal hernia Large when seen on EGD 10/2010 at [facility] (Dr. 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 levothyroxine (SYNTHROID) 88 mcg tablet Take 1 tablet by mouth once daily. Take on empty stomach. For Thyroid amLODIPine (NORVASC) 5 mg tablet Take 1 tablet by mouth once daily. diazePAM (VALIUM) 5 mg tablet Take 1 tablet by mouth at bedtime as needed (vertigo or anxiety) for up to 90 days. diclofenac (VOLTAREN) 1 % topical gel Apply 2 g to affected area four times daily. cyclobenzaprine (FLEXERIL) 5 mg tablet Take 1 tablet by mouth three times a day as needed for muscle spasm. lidocaine (LIDODERM) 5 % Apply 1 Patch as directed once daily. Remove old patch after wearing for 12 hours and then 12 hours later apply new patch for 12 hours on the site and 12 hours off the site. Location: right lower back. ipratropium-albuterol (DUONEB) 0.5 mg-3 mg(2.5 mg base)/3 mL nebu Inhale 3 mL as instructed every 6hours. Unit dose pack. dr Park pulmonology. gabapentin (NEURONTIN) 100 mg capsule Take 3 capsules by mouth daily at bedtime for 180 days. Do not start before April 06, 2023. spironolactone (ALDACTONE) 25 mg tablet Take 1 tablet by mouth once daily. (Patient taking differently: Take 25 mg by mouth once daily as needed. When edema worse) aspirin, enteric coated (ASPIRIN, ENTERIC COATED) 81 [...] Take 1 tablet by mouth twice daily. Artificial Tear, Hypromellose, (SYSTANE GEL) 0.3 % gel 1 Drop daily at bedtime. (Patient not taking: Reported on 09/17/2023) No current facility-administered medications for this visit. Review of Systems Objective BP 128/78 Pulse 87 Temp 36.9 C (98.4 F) Resp 18 Wt 86.6 kg (191 lb) SpO2 97% BMI 32.79 kg/m Physical Exam Latest Ref Rng 02/19/2023 08/29/2023 WBC 3.70 - 11.00 k/uL 9.12 8.49 RBC 3.90 - 5.20 m/uL 4.50 4.78 Hemoglobin 11.5 - 15.5 g/dL 14.0 14.6 Hematocrit 36.0 - 46.0 % 42.7 44.6 MCV 80.0 - 100.0 fL 94.9 93.3 MCH 26.0 - 34.0 pg 31.1 30.5 MCHC 30.5 - 36.0 g/dL 32.8 32.7 RDW-CV 11.5 - 15.0 % 13.5 13.3 Platelet Count 150 - 400 k/uL 370 342 MPV 9.0 - 12.7 fL 9.8 10.2 Neut% % 47.9 51.0 Abs Neut (ANC) 1.45 - 7.50 k/uL 4.36 4.33 Lymph% % 32.3 31.4 Abs Lymph 1.00 - 4.00 k/uL 2.95 2.67 [place]% % 10.2 8.2 Abs [place] <0.87 k/uL 0.93 (H) 0.70 Eosin% % 8.0 7.9 Abs Eosin <0.46 k/uL 0.73 (H) 0.67 (H) Baso% % 1.3 1.1 Abs Baso <0.11 k/uL 0.12 (H) 0.09 Immature Gran % % 0.3 0.4 IMMATURE GRANS (ABS) <0.10 k/uL 0.03 0.03 NRBC /100 WBC 0.0 0.0 Absolute nRBC <0.01 k/uL <0.01 <0.01 DTYPE Auto Auto Protein, Total 6.3 - 8.0 g/dL 7.2 7.3 Albumin 3.9 - 4.9 g/dL 4.1 4.0 Calcium 8.5 - 10.2 mg/dL 9.7 9.6 Bilirubin, Total 0.2 - 1.3 mg/dL 0.5 0.4 Alkaline Phosphatase 34 - 123 U/L 60 64 AST 13 - 35 U/L 21 30 ALT 7 - 38 U/L 24 31 Glucose 74 - 99 mg/dL 119 (H) 147 (H) BUN 7 - 21 mg/dL 19 17 Creatinine 0.58 - 0.96 mg/dL 0.81 0.78 Sodium 136 - 144 mmol/L 142 140 Potassium 3.7 - 5.1 mmol/L 4.6 4.1 Chloride 98 - 107 mmol/L 103 104 CO2 22 - 30 mmol/L 27 26 Anion Gap 8 - 15 mmol/L 12 10 eGFR >=60 mL/min/1.73m 77 80 Cholesterol, Total <200 mg/dL 179 192 Triglyceride <150 mg/dL 74 87 HDL Cholesterol >39 mg/dL 54 57 Non HDL Cholesterol <130 mg/dL 125 135 (H) Fasting Time hrs 10 11 VLDL Cholesterol <30 mg/dL 15 17 TC:HDL Ratio <5.10 3.31 3.37 LDL Cholesterol <100 mg/dL 110 (H) 118 (H) LDL:HDL Ratio <2.54 2.04 2.07 Hemoglobin A1C 4.3 - 5.6 % 6.1 (H) 6.8 (H) Estimated Average Glucose mg/dL 128 148 TSH 0.270 - 4.200 mIU/L 3.670 2.640 Legend: (H) High Assessment and Plan Encounter Diagnosis ICD-10-CM 1. DDD (degenerative disc disease), lumbar M51.36 2. Protrusion of lumbar intervertebral disc M51.26 3. Spinal stenosis of lumbar region, unspecified whether neurogenic claudication present M48.061 Also foraminal stenosis. Getting more cramping and also numbness in toes. To follow up with Dr. Reilly fowler [facility]. To get a brace 4. Vertigo R42 DISCONTINUED: diazePAM (VALIUM) 5 mg tablet Stable with present management. Continue as needed diazepam 5. Anxiety F41.9 DISCONTINUED: diazePAM (VALIUM) 5 mg tablet Chronic. 's history contributes to anxiety. Emotional support given. Continue present medication maangement 6. Primary hypertension I10 Good control. Stay on same med management 7. Mixed hyperlipidemia E78.2 Follow up labs. Adjust management as indicated 8. Vitamin D deficiency E55.9 VITAMIN D 25 HYDROXY Follow up labs; adjust dose as indicated 9. IFG (impaired fasting glucose) R73.01 HEMOGLOBIN A1C COMPREHENSIVE METABOLIC PANEL Continue working on healthier diet and regular exercise as able 10. Encounter for long-term current use of medication Z79.899 HEMOGLOBIN A1C COMPREHENSIVE METABOLIC PANEL LIPID PANEL BASIC VITAMIN D 25 HYDROXY TOXICOLOGY SCREEN, ROUTINE URINE Above issues addressed with patient. Patient involved [...] lifestyle changes for effective weight loss as wellas prevention of DM, and control of BP and lipids. Paulo Scott MD [facility] Telephone encounter Note * Telephone Encounter - Paulo Scott MD - 08/21/2023 4:20 PM EDT The following approved medication requests have been transmitted electronically. Requested Prescriptions Pending Prescriptions Disp Refills levothyroxine (SYNTHROID) 88 mcg tablet 90 tablet 3 Sig: Take 1 tablet by mouth once daily. Take on empty stomach. For Thyroid amLODIPine (NORVASC) 5 mg tablet 90 tablet 3 Sig: Take 1 tablet by mouth once daily. Paulo Scott MD [facility] Miscellaneous Notes* Telephone Encounter - Paulo Scott MD - 08/21/2023 4:20 PM EDT The following approved medication requests have been transmitted electronically. Requested Prescriptions Pending Prescriptions Disp Refills levothyroxine (SYNTHROID) 88 mcg tablet 90 tablet 3 Sig: Take 1 tablet by mouth once daily. Take on empty stomach. For Thyroid amLODIPine (NORVASC) 5 mg tablet 90 tablet 3 Sig: Take 1 tablet by mouth once daily. Paulo Scott MD * Telephone Encounter - [place] Zuleika Rowan - 08/21/2023 10:12 AM EDT Patient has been identified by name and date of : Yes Patient phones for refill(s): Requested Prescriptions Pending Prescriptions Disp Refills levothyroxine (SYNTHROID) 88 mcg tablet 90 tablet 3 Sig: Take 1 tablet by mouth once daily. Take on empty stomach. For Thyroid amLODIPine (NORVASC) 5 mg tablet 90 tablet 3 Sig: Take 1 tablet by mouth once daily. Date of last office visit in primary care: 07/04/2023 Date of next office visit in primary care: 09/17/2023 Please advise. Thank you. Zuleika Rowan. [facility] Telephone encounter Note * Telephone Encounter - [place] Zuleika Rowan - 08/21/2023 10:12 AM EDT Patient has been identified by name and date of : Yes Patient phones for refill(s): Requested Prescriptions Pending Prescriptions Disp Refills levothyroxine (SYNTHROID) 88 mcg tablet 90 tablet 3 Sig: Take 1 tablet by mouth once daily. Take on empty stomach. For Thyroid amLODIPine (NORVASC) 5 mg tablet 90 tablet 3 Sig: Take 1 tablet by mouth once daily. Date of last office visit in primary care: 07/04/2023 Date of next office visit in primary care: 09/17/2023 Please advise. Thank you. Zuleika Rowan. [facility]05-07[facility] Instructions* Patient Instructions* Clifford Lozano PA - 07/22/2023 4:39 PM EDT Rest, ice the knees 3 times daily for 15 minutes at a time, elevate the legs to help with swelling/pain. You may continue your Tylenol as needed for pain. Use the Voltaren gel twice daily on the knees as needed for pain. You only need to use a small amount. Do not use lidocaine patches in multiple places at 1 time. Continue the patch as prescribed for your back. Follow-up with your PCP within 1 week if symptoms persist. documented in this encounterMed[facility]05-[facility] History of Present illness Narrative* Rubén Gamino RT(R) - 07/22/2023 4:30 PM EDT Radiology Service Progress Note PATIENT NAME: Keshia Rojas DATE OF SERVICE: July 22, 2023 TIME: 4:41 PM PATIENT IDENTITY VERIFICATION COMPLETED USING TWO (2) IDENTIFIERS: Name and Date of confirmedby patient verbally. FALL SCREENING: Has the patient had 2 falls in the last year or 1 fall with injury or currently using an Ambulatory Assistive Device (Walker, Cane, Wheelchair, Crutches, etc.)? No PATIENT GENDER DATA: Female. status: : No status: NO. PATIENT RELEVANT IMPLANT DATA REVIEWED: Yes PATIENT PRESENTS WITH AN IMPLANTABLE OR ATTACHED PRODUCTION GRADER: No RADIOLOGY DEPARTMENT: General X-ray: Exam(s) Completed: Lower Extremity X- Ray(s): Knee, AP / Lat / Tunne / Merchant Bilateral and Wt. Bearing PERIPHERAL IV DATA: Not applicable SIGNED BY: RT Marlyn(Kerri) July 22, 2023 4:41 PM documented in this encounterMed[facility]05-[facility]24 NoteHNO ID: [id number] Author: RUBÉN GAMINO RT(R) Service: Radiology Author Type: Technologist Type: Progress Notes Filed: 07/22/2023 17:02 Note Text: Radiology Service Progress Note PATIENT NAME: Keshia Rojas DATE OF SERVICE: July 22, 2023 TIME: 4:41 PM PATIENT IDENTITY VERIFICATION COMPLETED USING TWO (2) IDENTIFIERS: Name and Date of confirmed by patient verbally. FALL SCREENING: Has the patient had 2 falls in the last year or 1 fall with injury or currently using an Ambulatory Assistive Device (Walker, Cane, Wheelchair, Crutches, etc.)? No PATIENT GENDER DATA: Female. status: : No status: NO. PATIENT RELEVANT IMPLANT DATA REVIEWED: Yes PATIENT PRESENTS WITH AN IMPLANTABLE OR ATTACHED PRODUCTION GRADER: No RADIOLOGY DEPARTMENT: General X-ray: Exam(s) Completed: Lower Extremity X-Ray(s): Knee, AP / Lat / Tunne / Merchant Bilateral and Wt. Bearing PERIPHERAL IV DATA: Not applicable SIGNED BY: RT Marlyn(Kerri) July 22, 2023 4:41 [facility]05-07-2024 NoteHNO ID: [id number] Author: CLIFFORD LOZANO PA Service: ? Author Type: Physician Sports Writer Type: Progress Notes Filed: 07/22/2023 17:26 Note Text: This note was created using NoteWriter. Subjective Keshia Rojas is a 73 year old female. HPI 73 year old female presents for bilateral knee pain since yesterday. Patient states that she sprained her low back a few weeks ago after trying to lift her . She states that those symptoms are improving. She is using lidocaine patches on the low back. States last night she started getting bilateral knee pain, worse on the right. Pain is worse with movement and with standing and sitting down. She does have history of arthritis and states that she does not have a meniscus in the left knee. She put a lidocaine patch on her right knee which seem to help with the symptoms, but then she called her doctor and they told her she was not supposed to do this since it was prescribed for her back. Patient has not tried anything else for her knee pain. She is on gabapentin for unrelated conditions and does take Tylenol as well. No numbness or tingling in the legs. No calf pain or swelling. No recent travel. No other complaint. 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 Charlton) Cataracts, both eyes Coronary atherosclerosis of unspecified type of vessel, quartz valley or graft minimal plaque on cath 08/06/2006 DVT (deep venous thrombosis) ([facility]) 2010 Right leg OCTOBER 2009 NOT TREATED Dysmetabolic syndrome X Esophageal reflux Fibromyalgia better with Lyrica Floppy eyelid syndrome Hiatal hernia Large when seen on EGD 10/2010 at [facility] (Dr. 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 retrograde persistalsis of esphagus causing episode of emesis Spondylosis TMJ arthritis right Unspecified essential hypertension Unspecified hypothyroidism PAST SURGICAL HISTORY Procedure Laterality Date COLSC FLX W/RMVL OF TUMOR POLYP LESION SNARE TQ 2001,2006,2009,2010 Dr. Chavarria DILATION AND CURETTAGE DXAND/THER NONOBSTETRIC 07/24/2005 Dilation AND curettage EXC TUMOR SOFT TISS FOREARM AND/WRIST SUBQ 3+CM Right 11/04/2015 Exc. right forearm lipoma HYSTEROSCOPY, DIAGNOSTIC (SEPARATE 07/24/2005 Hysteroscopy INCISE FINGER TENDON SHEATH Right 10/26/2020 Right middle trigger finger release and excision ganglion cyst INTRO. 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 REMOVE PART, LUMBAR VERTEBRAE 01/15/2014 RETRIEV INTRAVASC FOREGN BODY 04/12/2014 FILTER REMOVAL RT HEART CATH 03/17/2006 x 2 TONSILLECTOMY AND ADENOIDECTOMY T/A (under age 12 years) ALLERGIES Adhesive, Aggrenox [Aspirin-Dipyridamole], Bactrim [Sulfamethoxazole-Trimethoprim], Betadine [Povidone-Iodine], Cetacaine [Vgjpotzw-Avutoqfrnw-Htutzvbteg], Cigarette Smoke, Codeine, Cortisone, Depo-Medrol [Methylprednisolone], Detrol [Tolterodine Tartrate], Ditropan [Oxybutynin Chloride], Latex, Lisinopril, Meclizine, Metoprolol, Myrbetriq [Mirabegron], Prevacid [Lansoprazole], Prilosec [Omeprazole Magnesium], Tape [Adhesive Tape (Rosins)], Tizanidine, and Zelnorm [Tegaserod Hydrogen Maleate] MEDICATIONS cyclobenzaprine (FLEXERIL) 5 mg tablet Take 1 tablet by mouth three times a day as needed for muscle spasm. lidocaine (LIDODERM) 5 % Apply 1 Patch as directed once daily. Remove old patch after wearing for 12 hours and then 12 hours later apply new patch for 12 hours on the site and 12 hours off the site. Location: right lower back. ipratropium-albuterol (DUONEB) 0.5 mg-3 mg(2.5 mg base)/3 mL nebu Inhale 3 mL as instructed every 6 hours. Unit dose pack. dr Park pulmonology. diazePAM (VALIUM) 5 mg tablet Take 1 tablet by mouth at bedtime as needed (vertigo or anxiety) for up to 90 days. Do not start before April 27, 2023. gabapentin (NEURONTIN) 100 mg capsule Take 3 capsules by mouth daily at bedtime for 180 days. Do not start before April 06, 2023. spironolactone (ALDACTONE) 25 mg tablet Take 1 tablet by mouth once daily. amLODIPine (NORVASC) 5 mg tablet Take 1 [...] nebulizer solution Use 0.5 mg via nebulizer (more content not included)...[facility]05-07-2024 History of Present illness Narrative* Clifford Lozano PA - 07/22/2023 4:27 PM EDT This note was created using Pollfishriter. Subjective Keshia Rojas is a 73 year old female. HPI 73 year old female presents for bilateral knee pain since yesterday. Patient states that she sprained her low back a few weeks ago after trying to lift her . She states that those symptomsare improving. She is using lidocaine patches on the low back. States last night she started getting bilateral knee pain, worse on the right. Pain is worse with movement and with standing and sittingdown. She does have history of arthritis and states that she does not have a meniscus in the left knee. She put a lidocaine patch on her right knee which seem to help with the symptoms, but then she called her doctor and they told her she was not supposed to do this since it was prescribed for her back. Patient has not tried anything else for her knee pain. She is on gabapentin for unrelated conditions and does take Tylenol as well. No numbness or tingling in the legs. No calf pain or swelling.No recent travel. No other complaint. 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 Charlton) Cataracts, both eyes Coronary atherosclerosis of unspecified type of vessel, quartz valley or graft minimal plaque on cath 08/06/2006 DVT (deep venous thrombosis) ([facility]) 2010 Right leg OCTOBER 2009 NOT TREATED Dysmetabolic syndrome X Esophageal reflux Fibromyalgia better with Lyrica Floppy eyelid syndrome Hiatal hernia Large when seen on EGD 10/2010 at [facility] (Dr. 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 retrograde persistalsis of esphagus causing episode of emesis Spondylosis TMJ arthritis right Unspecified essential hypertension Unspecified hypothyroidism PAST SURGICAL HISTORY Procedure Laterality Date COLSC FLX W/RMVL OF TUMOR POLYP LESION SNARE TQ 2001,2006,2009,2010 Dr. Chavarria DILATION & CURETTAGE DX&/THER NONOBSTETRIC 07/24/2005 Dilation & curettage EXC TUMOR SOFT TISS FOREARM AND/WRIST SUBQ 3+CM Right 11/04/2015 Exc. right forearm lipoma HYSTEROSCOPY, DIAGNOSTIC (SEPARATE 07/24/2005 Hysteroscopy INCISE FINGER TENDON SHEATH Right 10/26/2020 Right middle trigger finger release and excision ganglion cyst INTRO. 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 REMOVE PART, LUMBAR VERTEBRAE 01/15/2014 RETRIEV INTRAVASC FOREGN BODY 04/12/2014 FILTER REMOVAL RT HEART CATH 03/17/2006 x 2 TONSILLECTOMY & ADENOIDECTOMY <AGE 12 03/17/1954 T/A (under age 12 years) ALLERGIES Adhesive, Aggrenox [Aspirin-Dipyridamole], Bactrim [Sulfamethoxazole- Trimethoprim], Betadine [Povidone-Iodine], Cetacaine [Yhzlkxgt-Jnuuufffze-Entptgycgl], Cigarette Smoke, Codeine, Cortisone, Depo- Medrol [Methylprednisolone], Detrol [Tolterodine Tartrate], Ditropan [Oxybutynin Chloride],Latex, Lisinopril, Meclizine, Metoprolol, Myrbetriq [Mirabegron], Prevacid [Lansoprazole], Prilosec[Omeprazole Magnesium], Tape [Adhesive Tape (Rosins)], Tizanidine, and Zelnorm [Tegaserod Hydrogen Maleate] MEDICATIONS cyclobenzaprine (FLEXERIL) 5 mg tablet Take 1 tablet by mouth three times a day as needed for muscle spasm. lidocaine (LIDODERM) 5 % Apply 1 Patch as directed once daily. Remove old patch after wearing for 12 hours and then 12 hours later apply new patch for 12 hours on the site and 12 hours off the site. Location: right lower back. ipratropium-albuterol (DUONEB) 0.5 mg-3 mg(2.5 mg base)/3 mL nebu Inhale 3 mL as instructed every 6hours. Unit dose pack. dr Park pulmonology. diazePAM (VALIUM) 5 mg tablet Take 1 tablet by mouth at bedtime as needed (vertigo or anxiety) for up to 90 days. Do not start before April 27, 2023. gabapentin (NEURONTIN) 100 mg capsule Take 3 capsules by mouth daily at bedtime for 180 days. Do not start before April 06, 2023. spironolactone (ALDACTONE) 25 mg tablet Take 1 tablet by mouth once daily. amLODIPine (NORVASC) 5 mg tablet Take 1 [...] Take 1 tablet by mouth twice daily. FAMILY HISTORY Problem Relation Age of Onset other (Celiac disease) Mother Cancer at 87 y/o Cancer Father PROSTATE ?KIDNEYBLADDER,? at 7o's Cancer Paternal Grandfather MELONOMA Colon Cancer Maternal Aunt Hypertension Sister Cancer Other LYMPHOBLASTOMA GREAT GRANDMOTHER PATERNAL Colon Cancer Maternal Grandmother other (Heart / Stroke) Maternal Grandmother AND CANCER OF STOMACH Breast Cancer Maternal Aunt diagnosed in her 90's Social History Tobacco Use Smoking status: Never Smokeless tobacco: Never Vaping Use Vaping Use: Never used Substance Use Topics Alcohol use: Yes Comment: occasionally rare Drug use: No Review of Systems Constitutional: Negative for chills and fever. HENT: Negative for congestion, ear pain and sore throat. Respiratory: Negative for cough and shortness of breath. Cardiovascular: Negative for chest pain. Gastrointestinal: Negative for abdominal pain, diarrhea and vomiting. Musculoskeletal: Positive for arthralgias and joint swelling. Objective BP 144/90 Pulse 102 Temp 37.3 C (99.2 F) Resp 18 Wt 87.2 kg (192 lb 3.9 oz) SpO2 96% BMI 33.00 kg/m Physical Exam Vitals and nursing note reviewed. Constitutional: General: She is not in acute distress. Appearance: Normal appearance. She is not toxic-appearing. Cardiovascular: Rate and Rhythm: Normal rate and regular rhythm. Pulmonary: Effort: Pulmonary effort is normal. Breath sounds: Normal breath sounds. Musculoskeletal: Right knee: Swelling, bony tenderness and crepitus present. Normal pulse. Left knee: Bony tenderness and crepitus present. Normal pulse. Right lower leg: No swelling or tenderness. No edema. Left lower leg: No swelling or tenderness. No edema. Comments: Tenderness over lateral joint lines of both knees. Mild swelling noted around the right knee. No warmth or erythema. Normal flexion and extension both knees. She does have mild crepitation.Able to ambulate. Normal sensation lower extremities. DP and PT pulses 2+. No calf swelling or tenderness. Skin: General: Skin is warm and dry. Neurological: Mental Status: She is alert. Assessment and Plan ASSESSMENT/PLAN: 1. Acute pain of both knees - ICD9: 338.19, 719.46, ICD10: M25.561, M25.562 - XR KNEE GENERAL 4V AP BOTH/PA BOTH/LAT/MERC BILATERAL-no osseous abnormality in knees, mild degenerative changes. -Recommend rest, ice, elevation. -Rx for Voltaren gel. Advised to apply to knees as needed twice daily. Use sparingly. -Advised patient not to use multiple lidocaine patches at a time. She may continue use on her back as prescribed, but do not put on more than 1 patch. She understands. -Follow-up with PCP if symptoms persist. Diagnosis and treatment plan were discussed and questions were answered to the patient's satisfaction. Pt acknowledged understanding of concepts and follow up plan. Specific signs and symptoms that would indicate the need for higher level of care were discussed in detail warranting prompt ER evaluation. LEONEL Cerda documented [facility]04[facility] Telephone encounter Note * Telephone Encounter - Jeanna Hoover MA - 07/07/2023 8:43 AM EDT Fax received for PA approval Jeanna Hoover MA [facility]04-22-[facility]24 Miscellaneous Notes* Telephone Encounter - Jeanna Hoover MA - 07/07/2023 8:43 AM EDT Fax received for PA approval Jeanna Hoover MA * Telephone Encounter - Ama Vang LPN - 07/04/2023 12:09 PM EDT Electronic PA rec'd and completed for lidocaine 5% patches. documented in this encounterMedina [facility]04-19-2024 Telephone encounter Note * Telephone Encounter - Ama Vang LPN - 07/04/2023 12:09 PM EDT Electronic PA rec'd and completed for lidocaine 5% patches. [facility]04-19-[facility] Instructions* Patient Instructions* Norman Garcia APRN.CNP - 07/04/2023 11:14 AM EDT Keep follow up but return sooner if pain persistent/not improving. Follow up with pain management. Can do heat or ice to the area. Rest as able. Start the medrol dose pack to help reduce inflammation. You can also take the muscle relaxer as needed. Can try lidocaine patches too. documented in this encounterMedina [facility]04-19-2024 NoteHNO ID: [id number] Author: NORMAN GARCIA APRN.CNP Service: ? Author Type: Nurse Practitioner Type: Progress Notes Filed: 07/04/2023 12:06 Note Text: SUBJECTIVE Keshia Rojas is a 73 year old female here today for a check up on her medical problems. Chief Complaint Patient presents with: ED Follow-up: back strain from trying to left HPI Keshia Rojas is a 73 year old female. She is an established patient. Here today for an ER follow up. She was seen in ER recently after trying to help lift her from a fall. She was seen in the [facility] ER 06/18. She is using a walker. Xr of the lumbar spine showed anterolisthesis of L4 on L5 with moderate central canal and bilateral neural foraminal stenosis. Given percocet by ER, using this sparingly. Going to see Dr. Paz for injections for the back pain. No new issues with numbness, tingling, weakness down the legs. No loss or bowel or bladder control, no saddle paresthesia. Her medications were reviewed today and her list is now up to date. Medications Current Outpatient Medications Medication Sig methylPREDNISolone (MEDROL, JEYSON,) 4 mg Dose-Pack Follow dosing instructions, take with food. cyclobenzaprine (FLEXERIL) 5 mg tablet Take 1 tablet by mouth three times a day as needed for muscle spasm. lidocaine (LIDODERM) 5 % Apply 1 Patch as directed once daily. Remove old patch after wearing for 12 hours and then 12 hours later apply new patch for 12 hours on the site and 12 hours off the site. Location: right lower back. ipratropium-albuterol (DUONEB) 0.5 mg-3 mg(2.5 mg base)/3 mL nebu Inhale 3 mL as instructed every 6 hours. Unit dose pack. dr Park pulmonology. diazePAM (VALIUM) 5 mg tablet Take 1 tablet by mouth at bedtime as needed (vertigo or anxiety) for up to 90 days. Do not start before April 27, 2023. gabapentin (NEURONTIN) 100 mg capsule Take 3 capsules by mouth daily at bedtime for 180 days. Do not start before April 06, 2023. spironolactone (ALDACTONE) 25 mg tablet Take 1 tablet by mouth once daily. amLODIPine (NORVASC) 5 mg tablet Take 1 [...] medications for this visit. ALLERGIES Allergen Reactions Adhesive Rash ECG patch [...] mandibular pain, lymphadenopathy, possible angio edema per [facility] ER note 04/24/2022 Meclizine Swelling URINARY RETENTION,FACE FELT FUNNY Metoprolol GI Upset headache.itching.hives. Myrbetriq [Mirabegr* Other: See Comments elevated BP Prevacid [Lansopraz* GI Upset GAS,BURPING HEADACHE Prilosec [Omeprazol* Diarrhea Tape [Adhesive Tape* Rash Paper tape Tizanidine Other: See Comments increased pain Zelnorm [Tegaserod * Hives ACTIVE PROBLEM LIST 1) Laparotomy 2) Joann gastroplasty 3) Wedge the gastric fundus 4) Robbie fundoplication (A priority) Comment: 06/30/2011 Keshia Rojas is a 61 year old female with history of hypertension, referred for surgical opinion regarding large hiatal hernia. Patienthad prior admission for shortness of breath and hematemsis. During hospitali (more content not included)...[facility]04-19-2024 History of Present illness Narrative* Norman Garcia APRN.RESIDENTIAL DIRECTOR - 07/04/2023 10:49 AM EDT SUBJECTIVE Keshia Rojas is a 73 year old female here today for a check up on her medical problems. Chief Complaint Patient presents with: ED Follow-up: back strain from trying to left HPI Keshia Rojas is a 73 year old female. She is an established patient. Here today for an ER follow up. She was seen in ER recently after trying to help lift her from a fall. She was seen in the [facility] ER 06/18. She is using a walker. Xr of the lumbar spine showed anterolisthesis of L4 on L5 with moderate central canal and bilateral neural foraminal stenosis. Given percocet by ER, using this sparingly. Going to see Dr. Paz for injections for the back pain. No new issues with numbness, tingling, weakness down the legs. No loss or bowel or bladder control, no saddle paresthesia. Her medications were reviewed today and her list is now up to date. Medications Current Outpatient Medications Medication Sig methylPREDNISolone (MEDROL, JEYSON,) 4 mg Dose-Pack Follow dosing instructions, take with food. cyclobenzaprine (FLEXERIL) 5 mg tablet Take 1 tablet by mouth three times a day as needed for muscle spasm. lidocaine (LIDODERM) 5 % Apply 1 Patch as directed once daily. Remove old patch after wearing for 12 hours and then 12 hours later apply new patch for 12 hours on the site and 12 hours off the site. Location: right lower back. ipratropium-albuterol (DUONEB) 0.5 mg-3 mg(2.5 mg base)/3 mL nebu Inhale 3 mL as instructed every 6hours. Unit dose pack. dr Park pulmonology. diazePAM (VALIUM) 5 mg tablet Take 1 tablet by mouth at bedtime as needed (vertigo or anxiety) for up to 90 days. Do not start before April 27, 2023. gabapentin (NEURONTIN) 100 mg capsule Take 3 capsules by mouth daily at bedtime for 180 days. Do not start before April 06, 2023. spironolactone (ALDACTONE) 25 mg tablet Take 1 tablet by mouth once daily. amLODIPine (NORVASC) 5 mg tablet Take 1 [...] medications for this visit. ALLERGIES Allergen Reactions Adhesive Rash ECG patch [...] mandibular pain, lymphadenopathy, possible angio edema per [facility] ER note 04/24/2022 Meclizine Swelling URINARY RETENTION,FACE FELT FUNNY Metoprolol GI Upset headache.itching.hives. Myrbetriq [Mirabegr* Other: See Comments elevated BP Prevacid [Lansopraz* GI Upset GAS,BURPING HEADACHE Prilosec [Omeprazol* Diarrhea Tape [Adhesive Tape* Rash Paper tape Tizanidine Other: See Comments increased pain Zelnorm [Tegaserod * Hives ACTIVE PROBLEM LIST 1) Laparotomy 2) Joann gastroplasty 3) Wedge the gastric fundus 4) Robbie fundoplication (A priority) Comment: 06/30/2011 Keshia Rojas is a 61 year old female with history of hypertension, referred for surgical opinion regarding large hiatal hernia. Patienthad prior admission for shortness of breath and hematemsis. During hospitalization, required blood transfusion. Work up significant for large symptomatic type III hiatal hernia noted on barium esophagram. On 06/30/2011 patient had 1) Laparotomy 2) Joann gastroplasty 3) Wedge the gastric fundus 4) Robbie fundoplication with Dr. Charlton. Plan: - soft mushy antireflux diet - progressive ambulation - oral pain managment . 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 Free T3 2.6. Plan: - Synthroid 50 mcg po at home . 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 Davon Infante ([facility]) Cough - 07/11/2019 Comment: Reviewed that had stress test and was referred to pizza cook for further evaluation of cough. Bilateral Leg Edema - 07/11/2019 Comment: Controlled with Dr. Gini sanon Neck Pain, Chronic - 09/16/2017 Acute Pain of Left Shoulder - 06/04/2017 Falls, Subsequent Encounter - 06/02/2017 Vertigo - 05/07/2017 Lipoma of Right Upper Extremity - 10/24/2015 Ifg (Impaired Fasting Glucose) - 03/30/2015 Cephalalgia - 11/28/2014 Anxiety - 10/22/2013 Marital Conflict - 10/22/2013 Stress Incontinence - 09/02/2013 Urge Incontinence - 09/02/2013 Frequency of Urination - 09/02/2013 Nocturia - 09/02/2013 Kidney Stone - 09/02/2013 Reversed Peristalsis - 06/23/2013 Comment: retrograde persistalsis of esphagus causing episode of emesis Oab (Overactive Bladder) - 06/16/2013 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 Charlton) Dysphagia - 02/05/2012 Obesity Anemia - 10/18/2010 Essential Hypertension Mixed Hyperlipidemia Coronary Atherosclerosis Irritable Bowel Syndrome Dysmetabolic Syndrome X Social History Tobacco Use Smoking status: Never Smokeless tobacco: Never Vaping Use Vaping Use: Never used Substance Use Topics Alcohol use: Yes Comment: occasionally rare Drug use: No Review of Systems Musculoskeletal: Positive for arthralgias, back pain, gait problem and myalgias. OBJECTIVE BP 136/70 Pulse 88 Temp 98.9 Resp 14 Ht 5' 4 (1.63m) Wt 188 lb (85.3kg) SpO2 96% BMI32.25 kg/(m^2). Physical Exam Vitals and nursing note reviewed. Constitutional: General: She is awake. She is not in acute distress. Appearance: Normal appearance. She is well-developed and well-groomed. She is not ill-appearing, toxic-appearing or diaphoretic. HENT: Head: Normocephalic. Right Ear: External ear normal. Left Ear: External ear normal. Nose: Nose normal. Eyes: General: Vision grossly intact. Conjunctiva/sclera: Conjunctivae normal. Pupils: Pupils are equal, round, and reactive to light. Neck: Vascular: No JVD. Trachea: Trachea normal. Pulmonary: Effort: Pulmonary effort is normal. No accessory muscle usage, prolonged expiration or respiratory distress. Musculoskeletal: Cervical back: Normal and neck supple. Thoracic back: Normal. Lumbar back: Spasms and tenderness (right paraspinal) present. No swelling, edema, deformity, signsof trauma, lacerations or bony tenderness. Decreased range of motion. No scoliosis. Skin: General: Skin is warm and dry. Capillary Refill: Capillary refill takes less than 2 seconds. Neurological: General: No focal deficit present. Mental Status: She is alert and oriented to person, place, and time. Mental status is at baseline. Psychiatric: Attention and Perception: Attention and perception normal. Mood and Affect: Mood and affect normal. Speech: Speech normal. Behavior: Behavior normal. Behavior is cooperative. Thought Content: Thought content normal. Cognition and Memory: Cognition and memory normal. Judgment: Judgment normal. ASSESSMENT/PLAN: 1. Strain of lumbar region, subsequent encounter - ICD9: V58.89, 847.2, ICD10: S39.012D (primary diagnosis) Acute on chronic back pain, suspect right lower lumbar muscle strain. Discussed rest, heat and/or ice, rest, percocet from ER okay, can try a medrol dose pack, low dose muscle relaxer and lidocaine patch while waiting to see pain management. - METHYLPREDNISOLONE 4 MG TABLETS IN A DOSE PACK - CYCLOBENZAPRINE 5 MG TABLET - LIDOCAINE 5 % TOPICAL PATCH 2. Chronic bilateral low back pain with bilateral sciatica - ICD9: 724.2, 724.3, 338.29, ICD10: M54.42, M54.41, G89.29 - METHYLPREDNISOLONE 4 MG TABLETS IN A DOSE PACK - CYCLOBENZAPRINE 5 MG TABLET - LIDOCAINE 5 % TOPICAL PATCH Portions of this note have been entered by ancillary staff. I have reviewed and when necessary edited, so that they are an adequate record of my encounter with this patient Please note that parts of this document were created using voice recognition software and therefore may contain grammatical errors. Patient verbalizes understanding of instructions from today's visit and in agreement with treatmentplan. Questions answered. Agrees to call the office if questions, concerns of issues with acute symptoms not improving or if they worsen. See diagnoses and orders for additional plan(s). Allergies and medications were reviewed, list was updated, and refills given if needed. Past medical, surgical, social, and family history reviewed and updated as appropriate. Encouraged proper diet & exercise as well as compliance with taking medications. Age- appropriate health preventative measures were discussed. Return if symptoms worsen or fail to improve, for Follow up on chronic conditions and medications.. Norman Garcia APRN-DARYL documented in this encounterMedina Hospital04-19-2024 Miscellaneous Notes* Telephone Encounter - Maribel Brown RN - 07/04/2023 8:48 AM EDT Appointment rescheduled for today with different provider. Maribel Brown RN documented in this encounterMedina Hospital02-13-2024 Miscellaneous Notes* Telephone Encounter - Arleen Hamm LPN - 04/29/2023 10:50 AM EST TC to Keshia, advised that Diazepam (Valium) RX was sent to [facility], 04/27/2023. Patient will check with pharmacy. Arleen Hamm LPN documented in this encounterMedina Hospital02-07-[address] [facility]02-07-[address] [facility]02-07-[address] [facility]02-07-[address] [facility]12-11-2023 Miscellaneous Notes* Telephone Encounter - Rea Soni OCCA - 02/24/2023 10:47 AM EST In review of chart patient had lab work drawn on 02/19/23. Patient was then seen in office on 02/21 for appointment. Nothing further at this time. MARICHUY Bergeron * Telephone Encounter - Adalgisa Jim LPN - 02/18/2023 11:40 AM EST Attempted to contact pt but no answer and no voicemail. * Telephone Encounter - Juan Rodriguez APRN.CNS - 02/18/2023 7:46 AM EST Orders filed * Telephone Encounter - Nathalie Blake RN - 02/17/2023 4:55 PM EST Pt called again about orders as she would like to do in the morning before work. Pt told if she gets her blood drawn Fri or morning, the results should be done by Friday. * Telephone Encounter - Jessica Saini LPN - 02/17/2023 8:19 AM EST Pt has an appt on 02/21 with provider for a 6 month f/u. Pt is asking if she needs any labs done before appt. Please review. Call pt with provider message. Jessica Saini LPN documented in this encounterMedina Hospital12-08-2023 Miscellaneous Notes* Addendum Note - Juan Rodriguez APRN.CNS - 02/21/2023 2:55 PM ESTAddended by: JUAN RODRIGUEZ on: 02/21/2023 02:55 PM Modules accepted: Orders documented in this encounterMedina Hospital12-08-2023 History of Present illness Narrative* Juan Rodriguez APRN.CNS - 02/21/2023 2:00 PM EST SUBJECTIVE: RSV Vaccine(1 - 1-dose 60+ series) Never done DTaP,Tdap,Td Vaccine(1 - Tdap) due on 11/19/2019 Influenza Vaccine(1) due on 11/15/2022 Covid-19 Vaccine(3 - 2022- season) due on 11/15/2022 HPI Keshia Rojas is a 72 year old female. [...] health. She was seen by Dr. Casper surgery scheduling coordinator September and October 2022 for abdominal pain and Sarmiento'sesophagus. Has follow up visit this month. She was seen by [facility] Ellen Estrella CMP January 31, 2023 for follow-up . Will complete a Holter for dizziness. She has cataract surgery 2022. Dr Aquino doing surgery. She notes leg pain and swelling at work. Wearing compression socks and taking gabapentin which are helping somewhat. She notes seeing Dr. Park pizza cook, switched to alternate nebulizer solution due to [...] 128/74 Pulse 81 Ht 162.6 cm (5' 4) Wt 87.1 kg (192 lb) SpO2 97% [...] mandibular pain, lymphadenopathy, possible angio edema per [facility] ER note 04/24/2022 Meclizine Swelling URINARY RETENTION,FACE [...] nebu Inhale 3 mL as instructed every 6hours. Unit dose pack. dr Park pulmonology. [START ON 04/27/2023] diazePAM (VALIUM) 5 mg tablet Take 1 tablet by mouth at bedtime as needed (vertigo or anxiety) for up to 90 days. Do not start before April 27, 2023. PAST MEDICAL HISTORY Diagnosis Date Acute, but ill-defined, cerebrovascular disease 09/28/2005 & 2009 TIA x2 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 11/02/12 EGD at [facility] (Dr. Charlton) Cataracts, both eyes Coronary atherosclerosis of unspecified type of vessel, [place] or graft minimal plaque on cath 08/06/2006 DVT (deep venous thrombosis) (HCC) 2010 Right leg OCTOBER 2009 NOT TREATED Dysmetabolic syndrome X Esophageal reflux Fibromyalgia better with Lyrica Floppy eyelid syndrome Hiatal hernia Large when seen on EGD 10/2010 at [facility] (Dr. Chavarria) Irritable bowel syndrome Obesity Osteoarthritis [...] Abs Lymph 1.00 - 4.00 k/uL 2.95 [place]% % 10.2 Abs [place] <0.87 k/uL 0.93 (H) Eosin% % 8.0 [...] YR, HIGH DOSE, QUADRIVALENT (FLUZONE HIGH-DOSE) - [employer] COVID-19 VACCINE ( SEASON) AGE 12+ YR 6 mo follow up MD Juan Lerma APRN.AIRPLANE DISPATCHER 3. Encounter for immunization - ICD9: V03.89, ICD10: Z23 - TDAP VACCINE, AGE 7+ YR (ADACEL, BOOSTRIX) 4. History of total adrenalectomy (HCC) - ICD9: V45.79, ICD10: E89.6 Stable, currently controlled, continue to monitor. Juan Rodriguez APRN.AIRPLANE DISPATCHER Medical Decision Making: Problems: Moderate: 2+ stable chronic illnesses Data: Unique test(s) ordered: 3+ Risk: Moderate: Drug management Medical Decision Making Level: 4 - Moderate documented in this encounterMedina Hospital11-29-2023 Miscellaneous Notes* Telephone Encounter - Paulo Scott MD - 02/12/2023 12:40 PM EST The following approved medication requests have been transmitted electronically. Requested Prescriptions Signed Prescriptions Disp Refills gabapentin (NEURONTIN) 100 mg capsule 30 capsule 0 Sig: Take 3 capsules by mouth daily at bedtime for 10 days. Authorizing Provider: PAULO SCOTT MD * Telephone Encounter - Marisel Randall RN - 02/12/2023 9:58 AM EST Patient reports [facility] tells her, her gabapentin refill is stuck in [place]. Pharmacy advised patient to ask pcp to send short supply to local pharmacy, a 10 day supply. Pended for LIANA Menard, per patient request. Patient reports she is out of medication. documented in this encounterMedina Hospital08-28-2023 Miscellaneous Notes* Telephone Encounter - Hillary Garcia RN - 11/11/2022 9:34 AM EDT Pt received message and said she got a hold of Dr Casper and he is having her do more testing. She is waiting on specific container to come in for testing. * Telephone Encounter - Hillary Garcia RN - 11/08/2022 4:46 PM EDT Called pt, no answer. Did not have voicemail. Will need to call back. Hillary Garcia RN * Telephone Encounter - Juan Rodriguez APRN.CNS - 11/08/2022 3:45 PM EDT Was there something that she wanted us to address regarding the labs? Or is Dr Casper managing? * Telephone Encounter - Hillary Garcia RN - 11/06/2022 12:05 PM EDT Pt called in and reports she had labs drawn by Dr Casper in September and she wanted to know if we wouldbe able to get them from [facility]. I let her know we have a lot of labs in that had been ordered by Dr Casper. She states Dr Casper told her she she had an infection. documented in this encounterMedina Hospital08-12-2023 Miscellaneous Notes* Telephone Encounter - Paulo Scott MD - 10/26/2022 10:41 AM EDT The following approved medication requests have been transmitted electronically. Requested Prescriptions Signed Prescriptions Disp Refills diazePAM (VALIUM) 5 mg tablet 30 tablet 2 Sig: Take 1 tablet by mouth at bedtime as needed (vertigo or anxiety) for up to 90 days. Authorizing Provider: PAULO SCOTT MD * Telephone Encounter - Brayan Larson LPN - 10/26/2022 9:22 AM EDT Patient phones requesting refills as follows: Requested Prescriptions Pending Prescriptions Disp Refills diazePAM (VALIUM) 5 mg tablet 30 tablet 2 Sig: Take 1 tablet by mouth at bedtime as needed (vertigo or anxiety) for up to 90 days. *Pt states she is down to 3 pills. Please review and advise. Brayan Larson LPN documented in this encounterMedina Hospital07-06-2023 History of Present illness Narrative* Ryan Chicas MD - 09/19/2022 3:50 PM EDT Patient presents with: c/o rash on right side of face and lower left abdomen HPI: Rash: Location: right face, left lower abdomen Duration: woke with yesterday Pruritis: Yes Pain: some discomfort Change: spreading Bleeding/ulceration/blister/pustule: red and bumpy without blisters or pustules [...] mandibular pain, lymphadenopathy, possible angio edema per [facility] ER note 04/24/2022 Meclizine Swelling URINARY RETENTION,FACE [...] (1.5cm to 0.5cm) distributed from the right caodaism to below the right lip. Tiny ulceration [...] POWDER Ryan Chicas MD documented in this encounterMedina Hospital07-05-2023 Miscellaneous Notes* Telephone Encounter - America Angel LPN - 09/18/2022 3:21 PM EDT Patient has been identified by name and [...] you. America Angel LPN documented in this encounterMedina [facility]07-[facility]23 Miscellaneous Notes* Letter - Mammography Coordinator - 09/16/2022 8:29 AM EDT September 16, 2022 PID: [id number] Keshia Eze Crystal [address] [place] [address] Dear Ms. Rojas, We are pleased to [...] report will be [facility] as part of your permanent medical record and are available for your continuing care. Thank you for allowing us to help in meeting your health care needs. Sincerely, Dr. Tracy Interpreting Radiologist [facility] (Normal over 40) documented in this encounterMedina Hospital06-30-2023 History of Present illness Narrative* Bethany rCow, RT(R) - 09/13/2022 1:10 PM EDT Radiology Service Progress Note PATIENT NAME: Keshia Rojas DATE OF SERVICE: September 13, 2022 TIME: 1:02 PM PATIENT IDENTITY VERIFICATION COMPLETED USING TWO (2) IDENTIFIERS: Name and Date of confirmedby patient verbally. FALL SCREENING: Has the patient [...] 13, 2022 1:02 PM documented in this encounterMedina Hospital06-28-2023 Miscellaneous Notes* Telephone Encounter - Erika Polk LPN - 09/11/2022 8:15 AM EDT Records show valid rx at the pharmacy. .me documented in this encounterMedina Hospital06-06-2023 Miscellaneous Notes* Telephone Encounter - Norman Garcia APRN.CNP - 08/20/2022 2:22 PM EDT Script sent. * Telephone Encounter - Shae Palencia RN - 08/19/2022 11:31 AM EDT Patient calls and reports that she is not happy with [facility] services and is changing pharmacies to [facility]. Shae Palencia RN * Telephone Encounter - Reshma Carson LPN - 08/19/2022 11:07 AM EDT Attempted to reach patient to ask as to why switch is needed with no answer and unable to leave a message. * Telephone Encounter - Madison Torres Pss - 08/19/2022 10:57 AM EDT Patient needs her Valium rx switched to [facility] in [place]. Refill date is tomorrow, 08/19/22. documented in this encounterMedina Hospital05-16-2023 Miscellaneous Notes* Telephone Encounter - Arleen Hamm LPN - 07/30/2022 3:11 PM EDT Patient has been identified by name and [...] you. Arleen Hamm LPN documented in this encounterMedina Hospital03-11-2023 Miscellaneous Notes* Telephone Encounter - Hillary Garcia RN - 05/25/2022 9:18 AM EST Pt called and is notified of providers message and instructions. Pt voices understanding. Hillary Garcia RN * Telephone Encounter - Paulo Scott MD - 05/24/2022 6:39 PM EST The following approved medication requests have been transmitted electronically. Requested Prescriptions Signed Prescriptions Disp Refills amLODIPine (NORVASC) 5 mg tablet 30 tablet 0 Sig: Take 1 tablet by mouth once daily. Authorizing Provider: PAULO SCOTT amLODIPine (NORVASC) 5 mg tablet 90 tablet 3 Sig: Take 1 tablet by mouth once daily. Authorizing Provider: PAULO SCOTT MD * Telephone Encounter - Reshma Carson LPN - 05/24/2022 4:10 PM EST Patient only has 6 tablets left of the 2.5 mg. Requesting a short supply to go to [facility] and 90 day supply to [facility] mail away. * Telephone Encounter - Norman Garcia APRN.DARYL - 05/24/2022 4:00 PM EST Please let her know okay to increase amlodipine to 5 mg daily (can take two tabs of the 2.5 mg doseuntil new script filled) and monitor bp, send us an update next week. * Telephone Encounter - Adalgisa Alston LPN - 05/23/2022 2:41 PM EST Patient has bp/O2 monitor at home and does check blood pressure and they have been running about the same OT had. Patient checked bp while on phone and reading was 146/90. PT also coming to the [facility] and checks bp. Patient notes that bp medication was changed last month from lisinopril 10 mg to amolodipine 2.5 mg due to a possible reaction to the lisinopril. * Telephone Encounter - Paulo Scott MD - 05/23/2022 1:11 PM EST Noted Last 5 Encounter BP Readings: Date: BP: 05/17/2022 136/82 04/26/2022 126/82 02/22/2022 118/82 08/23/2021 126/74 01/19/2021 122/72 See if patient has BP cuff to monitor BP or if still has HHN and/or PT following to check BP * Telephone Encounter - Tricia Crockett RN - 05/22/2022 3:29 PM EST VANNESA Alexis @ [facility] calling to let provider know patient discharged by OT today. Her BP was 144/96 P 77 prior to therapy. No re-check done. Tricia Crockett RN documented in this encounterMedina Hospital03-08-2023 Miscellaneous Notes* Telephone Encounter - Norman Garcia APRN.CNP - 05/22/2022 9:33 AM EST PDMP website checked and validated. All prescriptions have been APPROPRIATELY filled. No suspiciousactivity was identified. 05/22/2022 by Norman Garcia APRN.DARYL * Telephone Encounter - Reshma Carson LPN - 05/22/2022 9:22 AM EST Last office visit: 05/17/22 Next appointment scheduled: 08/23/22 Patient phones requesting refills as follows: Requested Prescriptions Pending Prescriptions Disp Refills diazePAM (VALIUM) 5 mg tablet 30 tablet 2 Sig: Take 1 tablet by mouth at bedtime as needed (vertigo or anxiety) for up to 180 days. Please review and advise. Reshma Carson LPN documented in this encounterMedina Hospital03-03-2023 History of Present illness Narrative* Paulo Scott MD - 05/17/2022 3:43 PM EST This note was created using NoteWriter. Subjective Keshia Rojas is a 72 year old female. Patient presents with: Established Patient: Follow up BLE weakness and pain SUBJECTIVE: Keshia Rojas is a 72 year old year old lady here today for hospital follow up appointment for review of medical conditions. States that had pain in legs with exacerbation of swelling despite wearing support hose. Idamay like someone was punching her in back of her calves. Had to have the stockings taken off since was contributing to the pain. Eyes rolled in back of her head. 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 Charlton) Cataracts, both eyes Coronary atherosclerosis of unspecified type of vessel, [place] or graft minimal plaque on cath 08/06/2006 DVT (deep venous thrombosis) ([facility]) 2010 Right leg OCTOBER 2009 NOT TREATED Dysmetabolic syndrome X Esophageal reflux Fibromyalgia better with Lyrica Floppy eyelid syndrome Hiatal hernia Large when seen on EGD 10/2010 at [facility] (Dr. Chavarria) Irritable bowel syndrome Obesity Osteoarthritis [...] and regular exercise and adequate sleep. Paulo Scott MD documented in this encounterMedina Hospital02-23-2023 Miscellaneous Notes* Telephone Encounter - Adalgisa Alston LPN - 05/09/2022 1:31 PM EST Attempted to contact Vanesa [phone] but no answer. Left providers message and ask to call officewith any questions or concerns. * Telephone Encounter - Juan Rodriguez APRN.SANDRA - 05/09/2022 12:53 PM EST BP ok if had not taken medication. Check at next visit and let us know if not remaining in control. We do not have information about 05/05 visit for leg pain, would need records for review. OK for SW. * Telephone Encounter - Erika Polk LPN - 05/09/2022 10:09 AM EST Vanesa with [facility] HH, OT calling with the followin)plan of [...] walking and pain. 3)Requesting verbal order for perinatal social worker to come in for emotional support.If calling with verbalorder approval -today please call Vanesa [phone] okay to leave a message -calling with verbal order tomorrow call Shelia [phone] okay to leave a message. Erika Polk LPN documented in this encounterMedina Hospital02-21-2023 Miscellaneous Notes* Telephone Encounter - Juan Rodriguez APRN.CNS - 05/07/2022 4:43 PM EST Noted, OK * Telephone Encounter - Erika Polk LPN - 05/07/2022 4:22 PM EST Norma with [facility], PT called with a plan of care for pt. They will be seenign pt 2 times a week for 3 weeks for lower extremities strengthening, gait and training, balance and endurance. No call back needed Erika Polk LPN documented in this encounterMedina Hospital02-20-[address] Campos [facility] May 06, 2022 12:05pm Note Date/Time May 06, 2022 12:03pm [facility] Medical Records Department [address] [place] [address] Discharge Summary 05/06/22 1156 MR#: [id number] Acct: [id number] Name: KESHIA ROJAS Rep #:[id number] : 1950 72 From: Shelia Campos DO PCP: Dr. Paulo Scott MD Status:HOLLIS TRAMMELL Location: [place] [address] Providers Date of Admission: 05/05/22 Date of Discharge: 05/06/22 Primary Care Physician: Dr. Paulo Scott MD Reason For Visit: INABILITY TO WALK Diagnosis Discharge Diagnosis (1) Bilateral leg pain: Status: Acute Code(s): M79.604 - Pain in right leg; M79.605 - Pain in left leg (2) Difficulty in walking: Status: Acute Code(s): R26.2 - Difficulty in walking, not elsewhere classified Medications at Discharge Home Medications gabapentin 100 mg capsule 300 mg PO QHS 01/11/14 levothyroxine 50 mcg tablet 88 mcg PO DAILY 01/11/14 diazepam 5 mg tablet 5 mg PO QHS PRN anxiety 01/13/19 aspirin 81 mg tablet,delayed release 81 mg PO DAILY@0800 02/09/19 multivitamin 1 tab PO DAILY 04/08/19 white petrolatum-mineral oil 94 %-3 % eye ointment (Systane Nighttime) 1 applic ophthalmic (eye) QHS cataracts 04/08/19 albuterol sulfate 90 mcg/actuation aerosol inhaler (Ventolin HFA) 2 puff inhalation Q4H PRN shortness of breath or wheezing #18 grams 09/20/19 cholecalciferol (vitamin D3) 125 mcg (5,000 unit) capsule 125 mcg PO DAILY 10/11/19 inhalational spacing device (BreatheRite MDI Spacer) #1 ea 10/11/19 budesonide 0.5 mg/2 mL suspension for nebulization 0.5 mg (2 mL) inhalation BID #120 mL 08/06/21 amlodipine 2.5 mg tablet (Norvasc) 2.5 mg PO DAILY #30 tabs 04/24/22 acetaminophen 500 mg capsule 500 mg PO Q6H PRN Pain 05/05/22 Hospital Course Operations None Procedures - (X-rays of bilateral knees) Summary of Care Provided Minutes Spent on Discharge: 25 Hospital Course: Mrs. Rojas is a 72-year-old female who presented to the emergency department yesterday with the inability to walk for 1 day. She has a history of chronic back pain and presented complaining of pain below both knees. She was having difficulty walking. She reported the pain was dull and worse with ambulation. She was able to walk and was therefore carried by a customer and her boss to [facility] and came to the hospital. She has no sensory changes and no recent trauma to her lower extremities. CBC was unremarkable on presentation. Chemistry panel was unremarkable other than hyperglycemia. Her CK was normal. Her UA wasunremarkable. Imaging of her bilateral lower extremities showed only mild degenerative changes in bilateral knees. I evaluated her the morning after presentation. She states that the pain is pretty much resolved and was able to ambulate around the room with a walker. She states she does have some slight increased pain with ambulation but it is nowhere near what it was the day previous. I did assess a D-dimer which was found to be 0.5 and when corrected for age is normal leaving DVT very low likelihood. Patient did not have any calf tenderness with palpation on the day of discharge. She was able to ambulate independently with an assistive device and wanted to go home. She did ask about home health care and this was set up for her prior to discharge. The etiology of her pain is unclear at this time. She has known history of neuropathy but I doubt that this presentation was likely related to that. It seems as if her symptoms started resolve as quickly as they occurred. She was discharged home in stable condition with home health care on 05/06/2022. Discharge diagnoses: Acute bilateral lower extremity pain from knee to feet-resolving Inability ambulate-resolved Hypertension Hypothyroidism CAD PAF left GERD PAD Degenerative disc disease History of lumbar spine surgery with chronic low back pain Asthma Sarmiento's esophagus Obesity Physical Exam Const alert, oriented x3, no apparent distress, healthy appearing and well nourished Constitutional Narrative: Older, obese, white female, sitting up in a chair at the bedside, appears comfortable and nontoxic, watching television General Appearance: cooperative, comfortable, well kempt and well developed Orientation / Consciousness: awake, oriented to person, oriented to place and oriented to time Exam Limitations: no limitations Nutritional Appearance: obese HEENT normocephalic, head/scalp atraumatic, hearing grossly normal bilaterally and moist oral mucous membranes HEENT Narrative: Mallampati 3, no thrush Resp normal respiratory effort, no retractions, no use of accessory muscles and clearto auscultation bilaterally Auscultation: Negative for crackles, rhonchi or wheezes Cardio regular rate, regular rhythm, S1 normal heart sound, S2 normal heart sound, no murmurs, no rub, no gallops and no clicks GI normal to inspection, nondistended, normoactive bowel sounds, soft to palpation and non-tender Extremity no clubbing, cyanosis or edema Extremity Narrative: No pain with bilateral palpation of distal lower extremities, no change in skin color or texture Neuro oriented x3, CN's II-XII intact bilaterally, moves all extremities, no focal motor deficits and No no sensory deficits noted Neuro Narrative: Neuropathy noted in bilateral feet-chronic, generalized weakness-proximal greater than distal Speech: speech normal Psych affect normal Weight / BMI Weight Weight: 89.1 kg Body Mass Index (BMI) 34.3 ABG / Lab / Microbiology Data Result Diagrams: 05/06/22 06:05 05/06/22 06:05 Laboratory: Laboratory Results - last 24 hr 05/05/22 13:15: WBC 10.4, RBC 4.66, Hgb 14.3, Hct 43.6, MCV 93.6, MCH 30.7, MCHC32.8, RDW Std Deviation 45.6 H, RDW Coeff of Ronnie 13.3, Plt Count 310, MPV 9.4, Immature Gran % (Auto) 0.300, Neut % (Auto) 65.4, Lymph % (Auto) 21.7, [place] % (Auto) 6.9, Eos % (Auto) 4.8, Baso % (Auto) 0.9, Absolute Neuts (auto) 6.8, Absolute Lymphs (auto) 2.27, Nucleated RBC % 0 05/05/22 13:15: Sodium 137, Potassium 3.9, Chloride 105, Carbon Dioxide 25.0, Anion Gap 7, BUN 21 H, Creatinine 0.98, Estim Creat Clear Calc 44.81, Est GFR (MDRD) Af Amer 72, Est GFR (MDRD) Non-Af 59 L, BUN/Creatinine Ratio 21.5 H, Glucose 183 H, Calcium 9.2, Troponin I High Sens 3 05/05/22 14:00: Urine Color Straw, Urine Clarity Clear, Urine pH 6.0, Ur Specific [place] 1.010, Urine Protein Negative, Urine Glucose (UA) Normal, UrineKetones Negative, Urine Occult Blood Negative, Urine Nitrite Negative, Urine Bilirubin Negative, Urine Urobilinogen Normal, Ur Leukocyte Esterase 25 H, UrineRBC 0 SEEN, Urine WBC 0-5 SEEN, Ur Squamous Epith Cells 0-5 SEEN, Urine Bacteria0 SEEN, Urine Mucus 0 SEEN 05/05/22 15:35: Troponin I High Sens 4 05/05/22 15:35: Total Creatine Kinase 186 05/06/22 06:05: WBC 8.1, RBC 4.31, Hgb 13.2, Hct 40.8, MCV 94.7, MCH 30.6, MCHC 32.4, RDW Std Deviation 46.9 H, RDW Coeff of Ronnie 13.4, Plt Count 293, MPV 9.7, Immature Gran % (Auto) 0.200, Neut % (Auto) 37.9 L, Lymph % (Auto) 42.9 H, [place] % (Auto) 9.0, Eos % (Auto) 9.0 H, Baso % (Auto) 1.0, Absolute Neuts (auto) 3.1, Absolute Lymphs (auto) 3.48, Nucleated RBC % 0 05/06/22 06:05: Sodium 141, Potassium 3.5, Chloride 108 H, Carbon Dioxide 26.0, Anion Gap 7, BUN 12, Creatinine 0.80, Estim Creat Clear Calc 54.89, Est GFR (MDRD) Af Amer 91, Est GFR (MDRD) Non-Af 75, BUN/Creatinine Ratio 15.0, Glucose 124 H, Calcium 8.6, Total Bilirubin 0.60, AST 22, ALT 27, Alkaline Phosphatase 59, Total Protein 6.4, Albumin 3.0 L, Globulin 3.4, Albumin/Globulin Ratio 0.9 05/06/22 06:05: TSH 4.36 H 05/06/22 10:35: D-Dimer Quant (PE/DVT) 0.50 H Radiography Diagnostic Testing: Radiology Impression Knee X-Ray 05/05/22 16:30 IMPRESSION: Mild degenerative changes. Electronically Signed: Martin Velasquez DO at 17:21 EST , Knee X-Ray 05/05/22 16:30 IMPRESSION: Degenerative changes. Electronically Signed: Martin Velasquez DO at 17:19 EST , D/C Instructions Discharge Diet: Low fat / Low cholesterol Discharge Activity: Return to Normal Activity Return to work on: 05/08/22 Weight Bearing Status: Weight bearing as tolerated Additional Activity Instructions: Use walker as needed for ambulation until balance and pain improved Meaningful Use Info Meaningful Use Diagnoses (Choose all that apply): None applicable Discharge Plan Admission Admit Date/Time: 05/05/22 17:41 Primary Reason for Your Visit: Bilateral lower extremity leg pain/inability ambulate Attending Provider: Shelia Campos Primary Care Provider: Paulo Scott Consulting Providers: Yuridia Bernabe Discharge Orders/Prescriptions Prescriptions: Continued multivitamin Tablet 1 tab PO DAILY Systane Nighttime 94-3 % ointment 1 applic OPHTHALMIC QHS diazepam 5 mg tablet 5 mg PO QHS PRN (Reason: anxiety) (DME) BreatheRite MDI Spacer Spacer See Rx Instructions .ROUTE .MEDSUPPLY Qty: 1 0RF Rx Instructions: As directed cholecalciferol (vitamin D3) 125 mcg (5,000 unit) capsule 125 mcg PO DAILY albuterol sulfate [Ventolin HFA] 90 mcg/actuation HFA aerosol inhaler 2 puff INHALATION Q4H PRN (Reason: shortness of breath or wheezing) Qty: 18 6RF budesonide 0.5 mg/2 mL suspension for nebulization 0.5 mg INHALATION BID Qty: 120 6RF Rx Instructions: J45.40 levothyroxine 50 MCG tablet 88 mcg PO DAILY gabapentin 100 MG capsule 300 mg PO QHS aspirin 81 MG tablet 81 mg PO DAILY@0800 amlodipine [Norvasc] 2.5 mg tablet 2.5 mg PO DAILY Qty: 30 0RF acetaminophen 500 mg Capsule 500 mg PO Q6H PRN (Reason: Pain) Referrals / Follow Up: Paulo Scott MD [Primary Care Provider] - Disposition Disposition (needs filled in before D/C Order can be placed): Home Health Service Charges/Coding Visit Charges Inpatient E&M: 16974 Disch Hosp 05/06/22 1205 <Electronically signed by Shelia Campos DO> Cosigner Signature (if applicable): CC: Dr. Shelia Campos DO; Dr. Paulo Scott MD~ Signed [facility] Work Phone: [phone]) 517-825302-19-2023 History and physical note Author Dr. Bernabe [facility] May 05, 2022 9:18pm Note Date/Time May 05, 2022 5:50pm [facility] Medical Records Department [address] [place] [address] H&P Exam - Hospitalist 05/05/22 1750 MR#: [id number] Acct: [id number] Name: KESHIA ROJAS Rep #:[id number] : 1950 72 From: Yuridia Bernabe MD PCP: Dr. Paulo Scott MD Status:AD M JP Location: [facility] [id number] HPI - General General Date of Admission: 05/05/22 Date of Service: 05/05/22 Chief Complaint: Inability to walk - 1 day HPI Narrative KESHIA ROJAS, is a 72 F who presents with the above. 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 She was having difficulty walking. She describes the pain as dull, worse with walking. She could not walk and was carried by customer and her boss into the car to the hospital. She denied any tingling or numbness. She denied any history of trauma. No previous experience like this. Denied any fever or chills. Denied any recent illness. Her vitals in the ED showed blood pressure 152/84, heart rate 80, respiratory 16, temperature 97.2 F, oxygen sat was 98% on room air. WBC count was 10.4, hemoglobin 14.3, platelet count 310, CMP was unremarkable except for BUN of 21, creatinine 0.98. Troponin was 4. UA was unremarkable. X-rays of both knees show degenerative changes. [facility] Medical History Anemia Arthritis Atherosclerotic heart disease of [place] coronary artery without angina pectoris Barretts esophagus Cataracts, bilateral Cholecystitis Cholelithiasis with chronic cholecystitis DDD (degenerative disc disease), lumbar DVT (deep venous thrombosis) Dysmetabolic syndrome X Environmental allergies Essential hypertension Fibromyalgia Gallstones Ganglion cyst GERD (gastroesophageal reflux disease) History of atrial dilatation History of DVT (deep vein thrombosis) Hypothyroidism IBS (irritable bowel syndrome) Osteoarthritis PAD (peripheral artery disease) Pancreatitis Pancreatitis, gallstone Segmental and somatic dysfunction of lumbar region Segmental and somatic dysfunction of pelvic region Segmental and somatic dysfunction of thoracic region TIA (transient ischemic attack) Home Medications gabapentin 100 mg capsule 300 mg PO QHS 01/11/14 [History Last Taken 05/05/22] levothyroxine 50 mcg tablet 88 mcg PO DAILY 01/11/14 [History Last Taken 05/05/22] diazepam 5 mg tablet 5 mg PO QHS PRN anxiety 01/13/19 [History Last Taken 05/05/22] aspirin 81 mg tablet,delayed release 81 mg PO DAILY@0800 02/09/19 [History Last Taken 05/05/22] acetaminophen 325 mg capsule 500 mg PO ONCE PRN Pain 04/08/19 [History Last Taken 05/05/22] multivitamin 1 tab PO DAILY 04/08/19 [History Last Taken 05/05/22] white petrolatum-mineral oil 94 %-3 % eye ointment (Systane Nighttime) 1 applic ophthalmic (eye) QHS cataracts 04/08/19 [History Last Taken 05/04/22] albuterol sulfate 90 mcg/actuation aerosol inhaler (Ventolin HFA) 2 puff inhalation Q4H PRN shortness of breath or wheezing #18 grams 09/20/19 [Rx Last Taken Unknown] cholecalciferol (vitamin D3) 125 mcg (5,000 unit) capsule 125 mcg PO DAILY 10/11/19 [History Last Taken 05/05/22] inhalational spacing device (BreatheRite MDI Spacer) #1 ea 10/11/19 [Rx Last Taken Unknown] budesonide 0.5 mg/2 mL suspension for nebulization 0.5 mg (2 mL) inhalation BID #120 mL 08/06/21 [Rx Last Taken 05/04/22] amlodipine 2.5 mg tablet (Norvasc) 2.5 mg PO DAILY #30 tabs 04/24/22 [Rx Last Taken 05/05/22] Allergy/AdvReac Type Severity Reaction Status Date / Time adhesive Allergy Unknown Verified 04/24/22 14:40 aspirin [From Aggrenox] Allergy Unknown Verified 04/24/22 14:40 benzocaine [From Cetacaine] Allergy Unknown Verified 04/24/22 14:40 butamben [From Cetacaine] Allergy Unknown Verified 04/24/22 14:40 cortisone [Cortisone] Allergy Unknown Verified 04/24/22 14:40 dipyridamole [From Aggrenox] Allergy Unknown Verified 04/24/22 14:40 lansoprazole [From Prevacid] Allergy Unknown Verified 04/24/22 14:40 latex Allergy Unknown Verified 04/24/22 14:40 meclizine Allergy Unknown Verified 04/24/22 14:40 methylprednisolone acetate Allergy Angioedema Verified 04/24/22 14:40 [From Depo-Medrol] metoprolol Allergy Unknown Verified 04/24/22 14:40 omeprazole [From Prilosec] Allergy Unknown Verified 04/24/22 14:40 omeprazole magnesium Allergy Unknown Verified 04/24/22 14:40 [From Prilosec] oxybutynin chloride Allergy Unknown Verified 04/24/22 14:40 [From Ditropan] povidone-iodine Allergy Unknown Verified 04/24/22 14:40 [From Betadine] soap [From Betadine] Allergy Unknown Verified 04/24/22 14:40 sulfamethoxazole Allergy Unknown Verified 04/24/22 14:40 [From Bactrim] tegaserod [From Zelnorm] Allergy Hives Verified 04/24/22 14:40 tegaserod hydrogen maleate Allergy Unknown Verified 04/24/22 14:40 [From Zelnorm] tetracaine [From Cetacaine] Allergy Unknown Verified 04/24/22 14:40 tolterodine tartrate Allergy Unknown Verified 04/24/22 14:40 [From Detrol] trimethoprim [From Bactrim] Allergy Unknown Verified 04/24/22 14:40 adhesive tape AdvReac Rash Verified 04/24/22 14:40 codeine AdvReac Unknown Verified 04/24/22 14:40 mirabegron [From Myrbetriq] AdvReac Other Verified 04/24/22 14:40 tizanidine AdvReac Other Verified 04/24/22 14:40 vaccine adjuvant system, AdvReac Rash Verified 04/24/22 14:40 AS01B liposomal [From Shingrix (PF)] varicella-zoster virus AdvReac Rash Verified 04/24/22 14:40 glycoprotein E, recombinant [From Shingrix (PF)] Family History Mother Cancer Celiac disease Presence of permanent cardiac pacemaker Father Cancer Sister Hypertension Other Colon cancer Myocardial infarction Surgical History H/O hernia repair History of cholecystectomy History of esophagogastroduodenoscopy (EGD) History of laparotomy History of Robbie fundoplication History of tonsillectomy Hx of cardiac cath Hx of colonoscopy Hx of dilation and curettage hx of filter removal Hx of local excision of skin lesion Hx of superior vena cava filter placement Hx of tubal ligation S/P gastroplasty Social History Smoking Status: Never smoker alcohol intake: never substance use type: does not use caffeine: Yes Type: coffee Number of servings: 2 what type of physical activity do you participate in: walking frequency: 3-4 times per week ROS ROS Narrative Constitutional: Denies: Anorexia, Chills, Fever, Night Sweats, Weight Change Eyes: Denies: Blurred vision, Cataracts, Conjunctivae Inflammation, Pain, Redness, Vision Change HEENT: Denies: Difficulty Hearing, Difficulty Swallowing, Head Aches, Hearing Changes, Sinus Congestion, Sinus Drainage Cardiovascular: Denies: Chest Pain, Orthopnea, Palpitations Respiratory: Denies: Cough, Shortness of breath at rest, Sputum production Gastrointestinal: Denies: Abdominal Pain, Nausea, Vomiting Genitourinary: Denies: Dysuria Musculoskeletal: See HPI Skin: Denies: Rash, Wounds Neurological: Denies: Numbness, Tingling, Focal weakness Vital Signs Vital Signs Vital Signs: 05/05/22 12:41 05/05/22 13:24 05/05/22 13:24 Temperature 97.2 F L Temperature Source Temporal Pulse Rate 80 74 Respiratory Rate 16 19 H Respiratory Effort Normal Respiratory Pattern Normal Blood Pressure 152/84 H 146/79 H Blood Pressure [Sitting (for 1 minute prior to obtaining)] Blood Pressure [Standing (for 1 minute prior to obtaining)] Blood Pressure Mean 106 101 Blood Pressure Mean [Sitting (for 1 minute prior to obtaining)] Blood Pressure Mean [Standing (for 1 minute prior to obtaining)] Pulse Ox 98 97 Oxygen Delivery Method Room Air Room Air 05/05/22 14:29 Temperature Temperature Source Pulse Rate Respiratory Rate Respiratory Effort Respiratory Pattern Blood Pressure Blood Pressure [Sitting (for 1 minute prior to obtaining)] 128/80 H Blood Pressure [Standing (for 1 minute prior to obtaining)] 110/89 H Blood Pressure Mean Blood Pressure Mean [Sitting (for 1 minute prior to obtaining)] 96 Blood Pressure Mean [Standing (for 1 minute prior to obtaining)] 96 Pulse Ox Oxygen Delivery Method Weight Weight: 87.997 kg Body Mass Index (BMI) 33.3 Physical Exam Narrative Physical exam: General: Alert, Oriented x3, Cooperative HEENT: Atraumatic Oral: Moist Mucosa Neck: Supple Lungs: Diminished to auscultation Cardiovascular: HS I+II, regular, no murmurs Abdomen: Bowel Sounds Present, Soft, Non Tender Extremities: No edema, tenderness on palpating both lower legs below both knees. Skin: No rashes, No breakdown Neurological: Grossly intact Psych/Mental Status: Appropriate Results Lab / Micro Data Result Diagrams: 05/05/22 13:15 05/05/22 13:15 Labs: Laboratory Results - last 24 hr 05/05/22 13:15: WBC 10.4, RBC 4.66, Hgb 14.3, Hct 43.6, MCV 93.6, MCH 30.7, MCHC32.8, RDW Std Deviation 45.6 H, RDW Coeff of Ronnie 13.3, Plt Count 310, MPV 9.4, Immature Gran % (Auto) 0.300, Neut % (Auto) 65.4, Lymph % (Auto) 21.7, [place] % (Auto) 6.9, Eos % (Auto) 4.8, Baso % (Auto) 0.9, Absolute Neuts (auto) 6.8, Absolute Lymphs (auto) 2.27, Nucleated RBC % 0 05/05/22 13:15: Sodium 137, Potassium 3.9, Chloride 105, Carbon Dioxide 25.0, Anion Gap 7, BUN 21 H, Creatinine 0.98, Estim Creat Clear Calc 44.81, Est GFR (MDRD) Af Amer 72, Est GFR (MDRD) Non-Af 59 L, BUN/Creatinine Ratio 21.5 H, Glucose 183 H, Calcium 9.2, Troponin I High Sens 3 05/05/22 14:00: Urine Color Straw, Urine Clarity Clear, Urine pH 6.0, Ur Specific [place] 1.010, Urine Protein Negative, Urine Glucose (UA) Normal, UrineKetones Negative, Urine Occult Blood Negative, Urine Nitrite Negative, Urine Bilirubin Negative, Urine Urobilinogen Normal, Ur Leukocyte Esterase 25 H, UrineRBC 0 SEEN, Urine WBC 0-5 SEEN, Ur Squamous Epith Cells 0-5 SEEN, Urine Bacteria0 SEEN, Urine Mucus 0 SEEN 05/05/22 15:35: Troponin I High Sens 4 05/05/22 15:35: Total Creatine Kinase 186 Radiology Impression Knee X-Ray 05/05/22 16:30 IMPRESSION: Mild degenerative changes. Electronically Signed: Martin VelasquezDO at 17:21 EST , Knee X-Ray 05/05/22 16:30 IMPRESSION: Degenerative changes. Electronically Signed: Martin Velasquez DO at 17:19 EST , Assessment & Plan Assessment/Plan (1) Bilateral leg pain: (2) Difficulty in walking: PLAN: Plan 1. Acute onset of bilateral lower extremity pain with inability to walk, unclearetiology for now Patient with reported history of peripheral neuropathy, on gabapentin No history of trauma. X-ray of the knee showed degenerative changes. Total CK is 186 We will admit to MedSurg, PT and OT to evaluate and treat Start Oxycodone as needed, continue with gabapentin 2. Hypertension, continue home medications -lisinopril, amlodipine Continue blood pressure management 3. Hypothyroidism, continue on synthroid 4. DVT PPx- Heparin SC Charges/Coding Addendum Addendum: Total time spent: 80 minutes of which more > 50% was spent in reviewing patient's chart, laboratory investigations, imaging, talking to emergency physician, taking history and physical examining patient and going over plan of care with patient and daughter at the bedside. Visit Charges Inpatient E&M: 76885 Init Hosp L3 05/05/222117 <Electronically signed by Yuridia Bernabe MD> Cosigner Signature (if applicable): CC: Dr. Yuridia Bernabe MD; Dr. Paulo Scott MD~ Signed [facility] Work Phone: [phone]) 180-686002-19-2023 Discharge summary Author La Nena Collazo [facility] May 05, 2022 5:48pm Note Date/Time May 05, 2022 1:22pm [facility] Medical Records Department [address] [place] [address] Emergency Department Summary 05/05/22 MR#: [id number] Acct: [id number] Name: KESHIA ROJAS Rep #:[id number] : 1950 72 From: [place] CASTANEDA PCP: Dr. Paulo Scott MD Status:RE G ER Location: ED HPI <LEONEL Rachel - Last Filed: 05/05/22 17:48> History of Present Illness Chief Complaint: Dizziness Narrative Narrative: 72-year-old female with PMH of HTN, hypothyroidism presents with bilateral lowerextremity pain and lightheadedness. She started her shift at [employer] around 8AM and felt fine. About 2 hours later she started to have pain in both knees and calves. This caused her to have some difficulty walking and she felt lightheaded like she may pass out. She drank Gatorade and ate mashed potatoes and sat down and rested her head with no improvement. She went to the bathroom and could not ambulate back out normally and a customer had to assist her. She was brought in via EMS. She has no headache, chest pain, or shortness of breath. She has no back pain or radicular pain and no bladder or bowel incontinence. No recent fever, cough or illness. The only recent change is 2 weeks ago lisinopril was discontinued and she started Norvasc. PFSH <LEONEL Rachel - Last Filed: 05/05/22 17:48> [facility] Medical History Anemia Arthritis Atherosclerotic heart disease of [place] coronary artery without angina pectoris Barretts esophagus Cataracts, bilateral Cholecystitis Cholelithiasis with chronic cholecystitis DDD (degenerative disc disease), lumbar DVT (deep venous thrombosis) Dysmetabolic syndrome X Environmental allergies Essential hypertension Fibromyalgia Gallstones Ganglion cyst GERD (gastroesophageal reflux disease) History of atrial dilatation History of DVT (deep vein thrombosis) Hypothyroidism IBS (irritable bowel syndrome) Osteoarthritis PAD (peripheral artery disease) Pancreatitis Pancreatitis, gallstone Segmental and somatic dysfunction of lumbar region Segmental and somatic dysfunction of pelvic region Segmental and somatic dysfunction of thoracic region TIA (transient ischemic attack) Home Medications gabapentin 100 mg capsule 300 mg PO QHS 01/11/14 [History Last Taken 02/08/19] levothyroxine 50 mcg tablet 50 mcg PO DAILY 01/11/14 [History Last Taken 02/09/19] lisinopril 10 mg tablet 10 mg PO DAILY hypertension 06/02/18 [History Last Taken 02/09/19] diazepam 5 mg tablet 5 mg PO QHS PRN anxiety 01/13/19 [History Last Taken 02/08/19] aspirin 81 mg tablet,delayed release 81 mg PO DAILY@0800 02/09/19 [History Last Taken 02/09/19] acetaminophen 325 mg capsule 325 mg PO ONCE PRN 04/08/19 [History Last Taken Unknown] multivitamin 1 tab PO DAILY 04/08/19 [History Last Taken Unknown] white petrolatum-mineral oil 94 %-3 % eye ointment (Systane Nighttime) 1 applic ophthalmic (eye) BID-QID PRN 04/08/19 [History Last Taken Unknown] albuterol sulfate 90 mcg/actuation aerosol inhaler (Ventolin HFA) 2 puff inhalation Q4H PRN shortness of breath or wheezing #18 grams 09/20/19 [Rx Last Taken Unknown] cholecalciferol (vitamin D3) 125 mcg (5,000 unit) capsule 125 mcg PO DAILY 10/11/19 [History Last Taken Unknown] inhalational spacing device (BreatheRite MDI Spacer) #1 ea 10/11/19 [Rx Last Taken Unknown] budesonide 0.5 mg/2 mL suspension for nebulization 0.5 mg (2 mL) inhalation BID #120 mL 08/06/21 [Rx Last Taken Unknown] amlodipine 2.5 mg tablet (Norvasc) 2.5 mg PO DAILY #30 tabs 04/24/22 [Rx Last Taken Unknown] Allergy/AdvReac Type Severity Reaction Status Date / Time adhesive Allergy Unknown Verified 04/24/22 14:40 aspirin [From Aggrenox] Allergy Unknown Verified 04/24/22 14:40 benzocaine [From Cetacaine] Allergy Unknown Verified 04/24/22 14:40 butamben [From Cetacaine] Allergy Unknown Verified 04/24/22 14:40 cortisone [Cortisone] Allergy Unknown Verified 04/24/22 14:40 dipyridamole [From Aggrenox] Allergy Unknown Verified 04/24/22 14:40 lansoprazole [From Prevacid] Allergy Unknown Verified 04/24/22 14:40 latex Allergy Unknown Verified 04/24/22 14:40 meclizine Allergy Unknown Verified 04/24/22 14:40 methylprednisolone acetate Allergy Angioedema Verified 04/24/22 14:40 [From Depo-Medrol] metoprolol Allergy Unknown Verified 04/24/22 14:40 omeprazole [From Prilosec] Allergy Unknown Verified 04/24/22 14:40 omeprazole magnesium Allergy Unknown Verified 04/24/22 14:40 [From Prilosec] oxybutynin chloride Allergy Unknown Verified 04/24/22 14:40 [From Ditropan] povidone-iodine Allergy Unknown Verified 04/24/22 14:40 [From Betadine] soap [From Betadine] Allergy Unknown Verified 04/24/22 14:40 sulfamethoxazole Allergy Unknown Verified 04/24/22 14:40 [From Bactrim] tegaserod [From Zelnorm] Allergy Hives Verified 04/24/22 14:40 tegaserod hydrogen maleate Allergy Unknown Verified 04/24/22 14:40 [From Zelnorm] tetracaine [From Cetacaine] Allergy Unknown Verified 04/24/22 14:40 tolterodine tartrate Allergy Unknown Verified 04/24/22 14:40 [From Detrol] trimethoprim [From Bactrim] Allergy Unknown Verified 04/24/22 14:40 adhesive tape AdvReac Rash Verified 04/24/22 14:40 codeine AdvReac Unknown Verified 04/24/22 14:40 mirabegron [From Myrbetriq] AdvReac Other Verified 04/24/22 14:40 tizanidine AdvReac Other Verified 04/24/22 14:40 vaccine adjuvant system, AdvReac Rash Verified 04/24/22 14:40 AS01B liposomal [From Shingrix (PF)] varicella-zoster virus AdvReac Rash Verified 04/24/22 14:40 glycoprotein E, recombinant [From Shingrix (PF)] Family History Mother Cancer Celiac disease Presence of permanent cardiac pacemaker Father Cancer Sister Hypertension Other Colon cancer Myocardial infarction Surgical History H/O hernia repair History of cholecystectomy History of esophagogastroduodenoscopy (EGD) History of laparotomy History of Robbie fundoplication History of tonsillectomy Hx of cardiac cath Hx of colonoscopy Hx of dilation and curettage hx of filter removal Hx of local excision of skin lesion Hx of superior vena cava filter placement Hx of tubal ligation S/P gastroplasty Social History Smoking Status: Never smoker alcohol intake: never substance use type: does not use caffeine: Yes Type: coffee Number of servings: 2 what type of physical activity do you participate in: walking frequency: 3-4 times per week ROS <LEONEL Rachel - Last Filed: 05/05/22 17:48> ROS ED ROS Narrative Constitutional: Negative for fever, chills, malaise. Eyes: Negative for visual change. ENT: Negative for sore throat, ear pain, rhinorrhea. CVS: Negative for palpitations, chest pain, syncope. Respiratory: Negative for shortness of breath, cough, orthopnea. GI: Negative for abdominal pain, nausea, vomiting, diarrhea, constipation, melena, hematochezia. : Negative for dysuria, hematuria or frequency. Neuro: Negative for headache, motor/sensory dysfunction. Skin: Negative for rash, abscess, or wound. Musc: Negative for joint pain, swelling, trauma. Heme: Negative for easy bruising, bleeding, lymphadenopathy. EXAM <LEONEL Rachel - Last Filed: 05/05/22 17:48> Physical Exam Narrative Exam Narrative: CONST: Patient sitting in no acute distress. EYES: Normal inspection. ENT: Normal inspection, moist mucous membranes. NECK: Normal inspection. RESP: No respiratory distress, CTAB. CVS: Regular rate and rhythm, no murmur, no gallop. ABD: Soft and nontender, no guarding or rebound, nondistended. SKIN: Color normal, no rash, warm, dry, intact. EXTREMITIES: Normal appearance, no pedal edema. Both lower extremities have full ROM, soft compartments, 5/5 strength, normal sensation, 2+ DP pulse. NEURO: Oriented x4. PSYCH: Normal affect. Const Vital Signs: 05/05/22 12:41 05/05/22 13:24 05/05/22 13:24 Temperature 97.2 F L Temperature Source Temporal Pulse Rate 80 74 Respiratory Rate 16 19 H Respiratory Effort Normal Respiratory Pattern Normal Blood Pressure 152/84 H 146/79 H Blood Pressure [Sitting (for 1 minute prior to obtaining)] Blood Pressure [Standing (for 1 minute prior to obtaining)] Blood Pressure Mean 106 101 Blood Pressure Mean [Sitting (for 1 minute prior to obtaining)] Blood Pressure Mean [Standing (for 1 minute prior to obtaining)] Pulse Ox 98 97 Oxygen Delivery Method Room Air Room Air 05/05/22 14:29 Temperature Temperature Source Pulse Rate Respiratory Rate Respiratory Effort Respiratory Pattern Blood Pressure Blood Pressure [Sitting (for 1 minute prior to obtaining)] 128/80 H Blood Pressure [Standing (for 1 minute prior to obtaining)] 110/89 H Blood Pressure Mean Blood Pressure Mean [Sitting (for 1 minute prior to obtaining)] 96 Blood Pressure Mean [Standing (for 1 minute prior to obtaining)] 96 Pulse Ox Oxygen Delivery Method <Dr. Ellie Mullins, DO - Last Filed: 05/05/22 16:15> Physical Exam Const Vital Signs: 05/05/22 12:41 05/05/22 13:24 05/05/22 13:24 Temperature 97.2 F L Temperature Source Temporal Pulse Rate 80 74 Respiratory Rate 16 19 H Respiratory Effort Normal Respiratory Pattern Normal Blood Pressure 152/84 H 146/79 H Blood Pressure [Sitting (for 1 minute prior to obtaining)] Blood Pressure [Standing (for 1 minute prior to obtaining)] Blood Pressure Mean 106 101 Blood Pressure Mean [Sitting (for 1 minute prior to obtaining)] Blood Pressure Mean [Standing (for 1 minute prior to obtaining)] Pulse Ox 98 97 Oxygen Delivery Method Room Air Room Air 05/05/22 14:29 Temperature Temperature Source Pulse Rate Respiratory Rate Respiratory Effort Respiratory Pattern Blood Pressure Blood Pressure [Sitting (for 1 minute prior to obtaining)] 128/80 H Blood Pressure [Standing (for 1 minute prior to obtaining)] 110/89 H Blood Pressure Mean Blood Pressure Mean [Sitting (for 1 minute prior to obtaining)] 96 Blood Pressure Mean [Standing (for 1 minute prior to obtaining)] 96 Pulse Ox Oxygen Delivery Method MDM <LEONEL Rachel - Last Filed: 05/05/22 17:48> [facility] Narrative Medical decision making narrative: Patient complained of bilateral knee pain radiating down to her calves. She also felt lightheaded like she might pass out. She is having difficulty ambulating. She is awake and alert with overall unremarkable vital signs. She is neurologically intact. NIH is 0. She has no weakness in her legs, strong distal pulses, compartments are soft. She states it is painful no matter where I touch her leg whether it is on the anterior posterior portion so I do not think this is a DVT and that clinically does not make sense with the history. She has no back pain or radicular pain. Blood work was obtained. CBC, BMP, CK,UA all unremarkable. Patient was able to walk but had difficulty and was holding onto things in the hallway which is not typical for her. I discussed the case with the hospitalist who evaluated bedside. We added on bilateral kneex-rays which are negative. Patient will be brought in for observation due to difficulty ambulating. Lab Data Labs: Laboratory Results - last 24 hr 05/05/22 05/05/22 05/05/22 13:15 13:15 14:00 WBC 10.4 RBC 4.66 Hgb 14.3 Hct 43.6 MCV 93.6 MCH 30.7 MCHC 32.8 RDW Std Deviation 45.6 H RDW Coeff of Ronnie 13.3 Plt Count 310 MPV 9.4 Immature Gran % (Auto) 0.300 Neut % (Auto) 65.4 Lymph % (Auto) 21.7 [place] % (Auto) 6.9 Eos % (Auto) 4.8 Baso % (Auto) 0.9 Absolute Neuts (auto) 6.8 Absolute Lymphs (auto) 2.27 Nucleated RBC % 0 Sodium 137 Potassium 3.9 Chloride 105 Carbon Dioxide 25.0 Anion Gap 7 BUN 21 H Creatinine 0.98 Estim Creat Clear Calc 44.81 Est GFR (MDRD) Af Amer 72 Est GFR (MDRD) Non-Af 59 L BUN/Creatinine Ratio 21.5 H Glucose 183 H Calcium 9.2 Total Creatine Kinase Troponin I High Sens 3 Urine Color Straw Urine Clarity Clear Urine pH 6.0 Ur Specific [place] 1.010 Urine Protein Negative Urine Glucose (UA) Normal Urine Ketones Negative Urine Occult Blood Negative Urine Nitrite Negative Urine Bilirubin Negative Urine Urobilinogen Normal Ur Leukocyte Esterase 25 H Urine RBC 0 SEEN Urine WBC 0-5 SEEN Ur Squamous Epith Cells 0-5 SEEN Urine Bacteria 0 SEEN Urine Mucus 0 SEEN 05/05/22 05/05/22 15:35 15:35 WBC RBC Hgb Hct MCV MCH MCHC RDW Std Deviation RDW Coeff of Ronnie Plt Count MPV Immature Gran % (Auto) Neut % (Auto) Lymph % (Auto) [place] % (Auto) Eos % (Auto) Baso % (Auto) Absolute Neuts (auto) Absolute Lymphs (auto) Nucleated RBC % Sodium Potassium Chloride Carbon Dioxide Anion Gap BUN Creatinine Estim Creat Clear Calc Est GFR (MDRD) Af Amer Est GFR (MDRD) Non-Af BUN/Creatinine Ratio Glucose Calcium Total Creatine Kinase 186 Troponin I High Sens 4 Urine Color Urine Clarity Urine pH Ur Specific [place] Urine Protein Urine Glucose (UA) Urine Ketones Urine Occult Blood Urine Nitrite Urine Bilirubin Urine Urobilinogen Ur Leukocyte Esterase Urine RBC Urine WBC Ur Squamous Epith Cells Urine Bacteria Urine Mucus Radiography Diagnostic Testing: Clinical Impression(s) from Imaging Studies Knee X-Ray 05/05/22 16:30 IMPRESSION: Mild degenerative changes. Electronically Signed: Martin Velasquez DO at 17:21 EST Reading Location ID and State: [facility] / [place] Tel [phone], Service support , Knee X-Ray 05/05/22 16:30 IMPRESSION: Degenerative changes. Electronically Signed: Martin Velasquez DO at 17:19 EST , ED attending interpretation of bilateral knee x-ray shows no fracture or dislocation, mild arthritis. <Dr. Ellie Mullins, - Last Filed: 05/05/22 16:15> [facility] Lab Data Attestation: I reviewed the patient's lab results. Lab results narrative: I have personally performed a face to face assessment of the patient and have reviewed the EULALIA Note. I performed a substantive portion of the visit including all aspects of the following. 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 Patient presented to the emergency department with complaint of pain in her knees that started while she was standing at work and then had discomfort in lower back. Patient then subsequently began feeling lightheaded and feeling like she was in a pass out. Patient states that she had a hard time walking or keeping her balance. She denies headache or fall or head injury. Currently not experiencing back pain. Patient states she just does not feel right. Currently she feels chilled. Patient states that she recently had her blood pressure medicine changed from lisinopril to Norvasc. She denies fever cough or recent illness.] Exam is [HEVERNON-PERMARYURI, EOMI. Cranial nerves II through XII grossly intact. TMs clear. Mucous membranes moist. No adenopathy. Cardiovascular-regular rate and rhythm without murmur or ectopy Lungs-clear to auscultation, chest wall stable without crepitus or subcu emphysema Abdomen-normoactive bowel sounds, soft, nontender, no rebound or rigidity, no peritoneal signs. Neuro exam-no focal deficits noted. She complains of some paresthesias to both lower extremities. Patient able to hold both arms up for count of 10 and both legs of for count of 5. No facial droop. Extremities-intact ?4, normal range of motion, normal pulses, atraumatic] Medical Decison Making [patient presents with difficulty ambulating secondary to pain in both lower extremities from the knees down. She denies radiculopathy type symptoms. She denies fall or injury. She denies feeling dizzy currently. Basic labs obtained were unremarkable and urinalysis was unremarkable. EKG obtained was unremarkable. Patient has no focal deficits to indicate stroke. Symptoms seem to be bilateral in the lower extremities. There are no ropes or cords palpated in the lower extremities. We attempted to ambulate patient however she is requiring assistance because of pain and difficulty ambulating. This point Case will be discussed with hospitalist evaluate patient for admission.] Other additions or changes: [None] Labs: Laboratory Results - last 24 hr 05/05/22 05/05/22 05/05/22 13:15 13:15 14:00 WBC 10.4 RBC 4.66 Hgb 14.3 Hct 43.6 MCV 93.6 MCH 30.7 MCHC 32.8 RDW Std Deviation 45.6 H RDW Coeff of Ronnie 13.3 Plt Count 310 MPV 9.4 Immature Gran % (Auto) 0.300 Neut % (Auto) 65.4 Lymph % (Auto) 21.7 [place] % (Auto) 6.9 Eos % (Auto) 4.8 Baso % (Auto) 0.9 Absolute Neuts (auto) 6.8 Absolute Lymphs (auto) 2.27 Nucleated RBC % 0 Sodium 137 Potassium 3.9 Chloride 105 Carbon Dioxide 25.0 Anion Gap 7 BUN 21 H Creatinine 0.98 Estim Creat Clear Calc 44.81 Est GFR (MDRD) Af Amer 72 Est GFR (MDRD) Non-Af 59 L BUN/Creatinine Ratio 21.5 H Glucose 183 H Calcium 9.2 Total Creatine Kinase Troponin I High Sens 3 Urine Color Straw Urine Clarity Clear Urine pH 6.0 Ur Specific [place] 1.010 Urine Protein Negative Urine Glucose (UA) Normal Urine Ketones Negative Urine Occult Blood Negative Urine Nitrite Negative Urine Bilirubin Negative Urine Urobilinogen Normal Ur Leukocyte Esterase 25 H Urine RBC 0 SEEN Urine WBC 0-5 SEEN Ur Squamous Epith Cells 0-5 SEEN Urine Bacteria 0 SEEN Urine Mucus 0 SEEN 05/05/22 05/05/22 15:35 15:35 WBC RBC Hgb Hct MCV MCH MCHC RDW Std Deviation RDW Coeff of Ronnie Plt Count MPV Immature Gran % (Auto) Neut % (Auto) Lymph % (Auto) [place] % (Auto) Eos % (Auto) Baso % (Auto) Absolute Neuts (auto) Absolute Lymphs (auto) Nucleated RBC % Sodium Potassium Chloride Carbon Dioxide Anion Gap BUN Creatinine Estim Creat Clear Calc Est GFR (MDRD) Af Amer Est GFR (MDRD) Non-Af BUN/Creatinine Ratio Glucose Calcium Total Creatine Kinase 186 Troponin I High Sens 4 Urine Color Urine Clarity Urine pH Ur Specific [place] Urine Protein Urine Glucose (UA) Urine Ketones Urine Occult Blood Urine Nitrite Urine Bilirubin Urine Urobilinogen Ur Leukocyte Esterase Urine RBC Urine WBC Ur Squamous Epith Cells Urine Bacteria Urine Mucus Radiography Diagnostic Testing: Clinical Impression(s) from Imaging Studies Knee X-Ray 05/05/22 16:30 IMPRESSION: Mild degenerative changes. Electronically Signed: Martin Velasquez DO at 17:21 EST , Knee X-Ray 05/05/22 16:30 IMPRESSION: Degenerative changes. Electronically Signed: Martin Velasquez DO at 17:19 EST Reading Location ID and State: [facility] / [place] Tel [phone], Service support , EKG Initial EKG: Attestation: I personally reviewed and interpreted this EKG as follows: Comments: Sinus rhythm with a ventricular rate of 67 bpm with no acute ST segment changes Discharge Plan Dx/Rx/DC Orders Clinical Impression: Bilateral leg pain, Difficulty in walking, Dizziness Disposition Disposition: Acute Care Hospital [facility] What to do if you have Problems For any increased pain, shortness of breath, bleeding, nausea or vomiting, chest pain, or any unexpected problems, contact your Primary Care Provider. Call [facility] ([phone]) or report to the closest Emergency Room. Call 911 if necessary. 05/05/22 1748 <Electronically signed by La Nena CASTANEDA> Cosigner Signature (if applicable): 05/05/22 1648 <Electronically signed by Ellie Mullins DO> CC: Dr. Paulo Scott MD ~ Signed [facility] Work Phone: [phone]) 633-383302-19-2023 Discharge summary Author [facility]ena [facility] May 05, 2022 5:48pm Note Date/Time May 05, 2022 1:22pm [facility] Medical Records Department [address] [place] [id number] Emergency Department Summary 05/05/22 MR#: [id number] Acct: [id number] Name: KESHIA ROJAS Rep #:[id number] : 1950 72 From: [place] CASTAN[place] PCP: Dr. Paulo Scott MD Status:RE G ER Location: ED HPI <LEONEL Rachel - Last Filed: 05/05/22 17:48> History of Present Illness Chief Complaint: Dizziness Narrative Narrative: 72-year-old female with PMH of HTN, hypothyroidism presents with bilateral lowerextremity pain and lightheadedness. She started her shift at [facility] [employer] [facility] around 8AM and felt fine. About 2 hours later she started to have pain in both knees and calves. This caused her to have some difficulty walking and she felt lightheaded like she may pass out. She drank Gatorade and ate mashed potatoes and sat down and rested her head with no improvement. She went to the bathroom and could not ambulate back out normally and a customer had to assist her. She was brought in via EMS. She has no headache, chest pain, or shortness of breath. She has no back pain or radicular pain and no bladder or bowel incontinence. No recent fever, cough or illness. The only recent change is 2 weeks ago lisinopril was discontinued and she started Norvasc. [facility] <LEONEL Rachel - Last Filed: 05/05/22 17:48> [facility] Medical History Anemia Arthritis Atherosclerotic heart disease of [place] coronary artery without angina pectoris Barretts esophagus Cataracts, bilateral Cholecystitis Cholelithiasis with chronic cholecystitis DDD (degenerative disc disease), lumbar DVT (deep venous thrombosis) Dysmetabolic syndrome X Environmental allergies Essential hypertension Fibromyalgia Gallstones Ganglion cyst GERD (gastroesophageal reflux disease) History of atrial dilatation History of DVT (deep vein thrombosis) Hypothyroidism IBS (irritable bowel syndrome) Osteoarthritis PAD (peripheral artery disease) Pancreatitis Pancreatitis, gallstone Segmental and somatic dysfunction of lumbar region Segmental and somatic dysfunction of pelvic region Segmental and somatic dysfunction of thoracic region TIA (transient ischemic attack) Home Medications gabapentin 100 mg capsule 300 mg PO QHS 01/11/14 [History Last Taken 02/08/19] levothyroxine 50 mcg tablet 50 mcg PO DAILY 01/11/14 [History Last Taken 02/09/19] lisinopril 10 mg tablet 10 mg PO DAILY hypertension 06/02/18 [History Last Taken 02/09/19] diazepam 5 mg tablet 5 mg PO QHS PRN anxiety 01/13/19 [History Last Taken 02/08/19] aspirin 81 mg tablet,delayed release 81 mg PO DAILY@0800 02/09/19 [History Last Taken 02/09/19] acetaminophen 325 mg capsule 325 mg PO ONCE PRN 04/08/19 [History Last Taken Unknown] multivitamin 1 tab PO DAILY 04/08/19 [History Last Taken Unknown] white petrolatum-mineral oil 94 %-3 % eye ointment (Systane Nighttime) 1 applic ophthalmic (eye) BID-QID PRN 04/08/19 [History Last Taken Unknown] albuterol sulfate 90 mcg/actuation aerosol inhaler (Ventolin HFA) 2 puff inhalation Q4H PRN shortness of breath or wheezing #18 grams 09/20/19 [Rx Last Taken Unknown] cholecalciferol (vitamin D3) 125 mcg (5,000 unit) capsule 125 mcg PO DAILY 10/11/19 [History Last Taken Unknown] inhalational spacing device (BreatheRite MDI Spacer) #1 ea 10/11/19 [Rx Last Taken Unknown] budesonide 0.5 mg/2 mL suspension for nebulization 0.5 mg (2 mL) inhalation BID #120 mL 08/06/21 [Rx Last Taken Unknown] amlodipine 2.5 mg tablet (Norvasc) 2.5 mg PO DAILY #30 tabs 04/24/22 [Rx Last Taken Unknown] Allergy/AdvReac Type Severity Reaction Status Date / Time adhesive Allergy Unknown Verified 04/24/22 14:40 aspirin [From Aggrenox] Allergy Unknown Verified 04/24/22 14:40 benzocaine [From Cetacaine] Allergy Unknown Verified 04/24/22 14:40 butamben [From Cetacaine] Allergy Unknown Verified 04/24/22 14:40 cortisone [Cortisone] Allergy Unknown Verified 04/24/22 14:40 dipyridamole [From Aggrenox] Allergy Unknown Verified 04/24/22 14:40 lansoprazole [From Prevacid] Allergy Unknown Verified 04/24/22 14:40 latex Allergy Unknown Verified 04/24/22 14:40 meclizine Allergy Unknown Verified 04/24/22 14:40 methylprednisolone acetate Allergy Angioedema Verified 04/24/22 14:40 [From Depo-Medrol] metoprolol Allergy Unknown Verified 04/24/22 14:40 omeprazole [From Prilosec] Allergy Unknown Verified 04/24/22 14:40 omeprazole magnesium Allergy Unknown Verified 04/24/22 14:40 [From Prilosec] oxybutynin chloride Allergy Unknown Verified 04/24/22 14:40 [From Ditropan] povidone-iodine Allergy Unknown Verified 04/24/22 14:40 [From Betadine] soap [From Betadine] Allergy Unknown Verified 04/24/22 14:40 sulfamethoxazole Allergy Unknown Verified 04/24/22 14:40 [From Bactrim] tegaserod [From Zelnorm] Allergy Hives Verified 04/24/22 14:40 tegaserod hydrogen maleate Allergy Unknown Verified 04/24/22 14:40 [From Zelnorm] tetracaine [From Cetacaine] Allergy Unknown Verified 04/24/22 14:40 tolterodine tartrate Allergy Unknown Verified 04/24/22 14:40 [From Detrol] trimethoprim [From Bactrim] Allergy Unknown Verified 04/24/22 14:40 adhesive tape AdvReac Rash Verified 04/24/22 14:40 codeine AdvReac Unknown Verified 04/24/22 14:40 mirabegron [From Myrbetriq] AdvReac Other Verified 04/24/22 14:40 tizanidine AdvReac Other Verified 04/24/22 14:40 vaccine adjuvant system, AdvReac Rash Verified 04/24/22 14:40 [id number] liposomal [From Shingrix (PF)] varicella-zoster virus AdvReac Rash Verified 04/24/22 14:40 glycoprotein E, recombinant [From Shingrix (PF)] Family History Mother Cancer Celiac disease Presence of permanent cardiac pacemaker Father Cancer Sister Hypertension Other Colon cancer Myocardial infarction Surgical History H/O hernia repair History of cholecystectomy History of esophagogastroduodenoscopy (EGD) History of laparotomy History of Robbie fundoplication History of tonsillectomy Hx of cardiac cath Hx of colonoscopy Hx of dilation and curettage hx of filter removal Hx of local excision of skin lesion Hx of superior vena cava filter placement Hx of tubal ligation S/P gastroplasty Social History Smoking Status: Never smoker alcohol intake: never substance use type: does not use caffeine: Yes Type: coffee Number of servings: 2 what type of physical activity do you participate in: walking frequency: 3-4 times per week ROS <LEONEL Rachel - Last Filed: 05/05/22 17:48> ROS ED ROS Narrative Constitutional: Negative for fever, chills, malaise. Eyes: Negative for visual change. ENT: Negative for sore throat, ear pain, rhinorrhea. CVS: Negative for palpitations, chest pain, syncope. Respiratory: Negative for shortness of breath, cough, orthopnea. GI: Negative for abdominal pain, nausea, vomiting, diarrhea, constipation, melena, hematochezia. : Negative for dysuria, hematuria or frequency. Neuro: Negative for headache, motor/sensory dysfunction. Skin: Negative for rash, abscess, or wound. Musc: Negative for joint pain, swelling, trauma. Heme: Negative for easy bruising, bleeding, lymphadenopathy. EXAM <LEONEL Rachel - Last Filed: 05/05/22 17:48> Physical Exam Narrative Exam Narrative: CONST: Patient sitting in no acute distress. EYES: Normal inspection. ENT: Normal inspection, moist mucous membranes. NECK: Normal inspection. RESP: No respiratory distress, CTAB. CVS: Regular rate and rhythm, no murmur, no gallop. ABD: Soft and nontender, no guarding or rebound, nondistended. SKIN: Color normal, no rash, warm, dry, intact. EXTREMITIES: Normal appearance, no pedal edema. Both lower extremities have full ROM, soft compartments, 5/5 strength, normal sensation, 2+ DP pulse. NEURO: Oriented x4. PSYCH: Normal affect. Const Vital Signs: 05/05/22 12:41 05/05/22 13:24 05/05/22 13:24 Temperature 97.2 F L Temperature Source Temporal Pulse Rate 80 74 Respiratory Rate 16 19 H Respiratory Effort Normal Respiratory Pattern Normal Blood Pressure 152/84 H 146/79 H Blood Pressure [Sitting (for 1 minute prior to obtaining)] Blood Pressure [Standing (for 1 minute prior to obtaining)] Blood Pressure Mean 106 101 Blood Pressure Mean [Sitting (for 1 minute prior to obtaining)] Blood Pressure Mean [Standing (for 1 minute prior to obtaining)] Pulse Ox 98 97 Oxygen Delivery Method Room Air Room Air 05/05/22 14:29 Temperature Temperature Source Pulse Rate Respiratory Rate Respiratory Effort Respiratory Pattern Blood Pressure Blood Pressure [Sitting (for 1 minute prior to obtaining)] 128/80 H Blood Pressure [Standing (for 1 minute prior to obtaining)] 110/89 H Blood Pressure Mean Blood Pressure Mean [Sitting (for 1 minute prior to obtaining)] 96 Blood Pressure Mean [Standing (for 1 minute prior to obtaining)] 96 Pulse Ox Oxygen Delivery Method <Dr. Ellie Mullins DO - Last Filed: 05/05/22 16:15> Physical Exam Const Vital Signs: 05/05/22 12:41 05/05/22 13:24 05/05/22 13:24 Temperature 97.2 F L Temperature Source Temporal Pulse Rate 80 74 Respiratory Rate 16 19 H Respiratory Effort Normal Respiratory Pattern Normal Blood Pressure 152/84 H 146/79 H Blood Pressure [Sitting (for 1 minute prior to obtaining)] Blood Pressure [Standing (for 1 minute prior to obtaining)] Blood Pressure Mean 106 101 Blood Pressure Mean [Sitting (for 1 minute prior to obtaining)] Blood Pressure Mean [Standing (for 1 minute prior to obtaining)] Pulse Ox 98 97 Oxygen Delivery Method Room Air Room Air 05/05/22 14:29 Temperature Temperature Source Pulse Rate Respiratory Rate Respiratory Effort Respiratory Pattern Blood Pressure Blood Pressure [Sitting (for 1 minute prior to obtaining)] 128/80 H Blood Pressure [Standing (for 1 minute prior to obtaining)] 110/89 H Blood Pressure Mean Blood Pressure Mean [Sitting (for 1 minute prior to obtaining)] 96 Blood Pressure Mean [Standing (for 1 minute prior to obtaining)] 96 Pulse Ox Oxygen Delivery Method [facility] <LEONEL Rachel - Last Filed: 05/05/22 17:48> [facility] Narrative Medical decision making narrative: Patient complained of bilateral knee pain radiating down to her calves. She also felt lightheaded like she might pass out. She is having difficulty ambulating. She is awake and alert with overall unremarkable vital signs. She is neurologically intact. NIH is 0. She has no weakness in her legs, strong distal pulses, compartments are soft. She states it is painful no matter where I touch her leg whether it is on the anterior posterior portion so I do not think this is a DVT and that clinically does not make sense with the history. She has no back pain or radicular pain. Blood work was obtained. CBC, BMP, CK,UA all unremarkable. Patient was able to walk but had difficulty and was holding onto things in the hallway which is not typical for her. I discussed the case with the hospitalist who evaluated bedside. We added on bilateral kneex-rays which are negative. Patient will be brought in for observation due to difficulty ambulating. Lab Data Labs: Laboratory Results - last 24 hr 05/05/22 05/05/22 05/05/22 13:15 13:15 14:00 WBC 10.4 RBC 4.66 Hgb 14.3 Hct 43.6 MCV 93.6 MCH 30.7 MCHC 32.8 RDW Std Deviation 45.6 H RDW Coeff of Ronnie 13.3 Plt Count 310 MPV 9.4 Immature Gran % (Auto) 0.300 Neut % (Auto) 65.4 Lymph % (Auto) 21.7 [place] % (Auto) 6.9 Eos % (Auto) 4.8 Baso % (Auto) 0.9 Absolute Neuts (auto) 6.8 Absolute Lymphs (auto) 2.27 Nucleated RBC % 0 Sodium 137 Potassium 3.9 Chloride 105 Carbon Dioxide 25.0 Anion Gap 7 BUN 21 H Creatinine 0.98 Estim Creat Clear Calc 44.81 Est GFR (MDRD) Af Amer 72 Est GFR (MDRD) Non-Af 59 L BUN/Creatinine Ratio 21.5 H Glucose 183 H Calcium 9.2 Total Creatine Kinase Troponin I High Sens 3 Urine Color Straw Urine Clarity Clear Urine pH 6.0 Ur Specific [place] 1.010 Urine Protein Negative Urine Glucose (UA) Normal Urine Ketones Negative Urine Occult Blood Negative Urine Nitrite Negative Urine Bilirubin Negative Urine Urobilinogen Normal Ur Leukocyte Esterase 25 H Urine RBC 0 SEEN Urine WBC 0-5 SEEN Ur Squamous Epith Cells 0-5 SEEN Urine Bacteria 0 SEEN Urine Mucus 0 SEEN 05/05/22 05/05/22 15:35 15:35 WBC RBC Hgb Hct MCV MCH MCHC RDW Std Deviation RDW Coeff of Ronnie Plt Count MPV Immature Gran % (Auto) Neut % (Auto) Lymph % (Auto) [place] % (Auto) Eos % (Auto) Baso % (Auto) Absolute Neuts (auto) Absolute Lymphs (auto) Nucleated RBC % Sodium Potassium Chloride Carbon Dioxide Anion Gap BUN Creatinine Estim Creat Clear Calc Est GFR (MDRD) Af Amer Est GFR (MDRD) Non-Af BUN/Creatinine Ratio Glucose Calcium Total Creatine Kinase 186 Troponin I High Sens 4 Urine Color Urine Clarity Urine pH Ur Specific [place] Urine Protein Urine Glucose (UA) Urine Ketones Urine Occult Blood Urine Nitrite Urine Bilirubin Urine Urobilinogen Ur Leukocyte Esterase Urine RBC Urine WBC Ur Squamous Epith Cells Urine Bacteria Urine Mucus Radiography Diagnostic Testing: Clinical Impression(s) from Imaging Studies Knee X-Ray 05/05/22 16:30 IMPRESSION: Mild degenerative changes. Electronically Signed: Martin Velasquez at 17:21 EST , Knee X-Ray 05/05/22 16:30 IMPRESSION: Degenerative changes. Electronically Signed: Martintaras Velasquez DO at 17:19 EST , ED attending interpretation of bilateral knee x-ray shows no fracture or dislocation, mild arthritis. <Dr. Ellie Mullins, - Last Filed: 05/05/22 16:15> [facility] Lab Data Attestation: I reviewed the patient's lab results. Lab results narrative: I have personally performed a face to face assessment of the patient and have reviewed the EULALIA Note. I performed a substantive portion of the visit including all aspects of the following. 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 Patient presented to the emergency department with complaint of pain in her knees that started while she was standing at work and then had discomfort in lower back. Patient then subsequently began feeling lightheaded and feeling like she was in a pass out. Patient states that she had a hard time walking or keeping her balance. She denies headache or fall or head injury. Currently not experiencing back pain. Patient states she just does not feel right. Currently she feels chilled. Patient states that she recently had her blood pressure medicine changed from lisinopril to Norvasc. She denies fever cough or recent illness.] Exam is [HEENT-PERRLA, EOMI. Cranial nerves II through XII grossly intact. TMs clear. Mucous membranes moist. No adenopathy. Cardiovascular-regular rate and rhythm without murmur or ectopy Lungs-clear to auscultation, chest wall stable without crepitus or subcu emphysema Abdomen-normoactive bowel sounds, soft, nontender, no rebound or rigidity, no peritoneal signs. Neuro exam-no focal deficits noted. She complains of some paresthesias to both lower extremities. Patient able to hold both arms up for count of 10 and both legs of for count of 5. No facial droop. Extremities-intact ?4, normal range of motion, normal pulses, atraumatic] Medical Decison Making [patient presents with difficulty ambulating secondary to pain in both lower extremities from the knees down. She denies radiculopathy type symptoms. She denies fall or injury. She denies feeling dizzy currently. Basic labs obtained were unremarkable and urinalysis was unremarkable. EKG obtained was unremarkable. Patient has no focal deficits to indicate stroke. Symptoms seem to be bilateral in the lower extremities. There are no ropes or cords palpated in the lower extremities. We attempted to ambulate patient however she is requiring assistance because of pain and difficulty ambulating. This point Case will be discussed with hospitalist evaluate patient for admission.] Other additions or changes: [None] Labs: Laboratory Results - last 24 hr 05/05/22 05/05/22 05/05/22 13:15 13:15 14:00 WBC 10.4 RBC 4.66 Hgb 14.3 Hct 43.6 MCV 93.6 MCH 30.7 MCHC 32.8 RDW Std Deviation 45.6 H RDW Coeff of Ronnie 13.3 Plt Count 310 MPV 9.4 Immature Gran % (Auto) 0.300 Neut % (Auto) 65.4 Lymph % (Auto) 21.7 [place] % (Auto) 6.9 Eos % (Auto) 4.8 Baso % (Auto) 0.9 Absolute Neuts (auto) 6.8 Absolute Lymphs (auto) 2.27 Nucleated RBC % 0 Sodium 137 Potassium 3.9 Chloride 105 Carbon Dioxide 25.0 Anion Gap 7 BUN 21 H Creatinine 0.98 Estim Creat Clear Calc 44.81 Est GFR (MDRD) Af Amer 72 Est GFR (MDRD) Non-Af 59 L BUN/Creatinine Ratio 21.5 H Glucose 183 H Calcium 9.2 Total Creatine Kinase Troponin I High Sens 3 Urine Color Straw Urine Clarity Clear Urine pH 6.0 Ur Specific [place] 1.010 Urine Protein Negative Urine Glucose (UA) Normal Urine Ketones Negative Urine Occult Blood Negative Urine Nitrite Negative Urine Bilirubin Negative Urine Urobilinogen Normal Ur Leukocyte Esterase 25 H Urine RBC 0 SEEN Urine WBC 0-5 SEEN Ur Squamous Epith Cells 0-5 SEEN Urine Bacteria 0 SEEN Urine Mucus 0 SEEN 05/05/22 05/05/22 15:35 15:35 WBC RBC Hgb Hct MCV MCH MCHC RDW Std Deviation RDW Coeff of Ronnie Plt Count MPV Immature Gran % (Auto) Neut % (Auto) Lymph % (Auto) [place] % (Auto) Eos % (Auto) Baso % (Auto) Absolute Neuts (auto) Absolute Lymphs (auto) Nucleated RBC % Sodium Potassium Chloride Carbon Dioxide Anion Gap BUN Creatinine Estim Creat Clear Calc Est GFR (MDRD) Af Amer Est GFR (MDRD) Non-Af BUN/Creatinine Ratio Glucose Calcium Total Creatine Kinase 186 Troponin I High Sens 4 Urine Color Urine Clarity Urine pH Ur Specific [place] Urine Protein Urine Glucose (UA) Urine Ketones Urine Occult Blood Urine Nitrite Urine Bilirubin Urine Urobilinogen Ur Leukocyte Esterase Urine RBC Urine WBC Ur Squamous Epith Cells Urine Bacteria Urine Mucus Radiography Diagnostic Testing: Clinical Impression(s) from Imaging Studies Knee X-Ray 05/05/22 16:30 IMPRESSION: Mild degenerative changes. Electronically Signed: Martin Velasquez DO at 17:21 EST , Knee X-Ray 05/05/22 16:30 IMPRESSION: Degenerative changes. Electronically Signed: Martin Velasquez DO at 17:19 EST , EKG Initial EKG: Attestation: I personally reviewed and interpreted this EKG as follows: Comments: Sinus rhythm with a ventricular rate of 67 bpm with no acute ST segment changes Discharge Plan Dx/Rx/DC Orders Clinical Impression: Bilateral leg pain, Difficulty in walking, Dizziness Disposition Disposition: Acute Care Hospital [facility] What to do if you have Problems For any increased pain, shortness of breath, bleeding, nausea or vomiting, chest pain, or any unexpected problems, contact your Primary Care Provider. Call [facility] ([phone]) or report to the closest Emergency Room. Call 911 if necessary. 05/05/22 1748 <Electronically signed by [place] CASTANEDA> Cosigner Signature (if applicable): 05/05/22 1648 <Electronically signed by Ellie Mullins DO> CC: Dr. Paulo Scott MD ~ Signed [facility] Work Phone: [phone]) 137-591802-10-2023 Instructions* Patient Instructions* Juan Rodriguez APRN.CNS - 04/26/2022 9:57 AM EST Stop taking lisinopril Start taking amlodipine 2.5 mg daily [facility] History of Present illness Narrative* Juan Rodriguez APRN.CNS - 04/26/2022 9:44 AM EST SUBJECTIVE: MAMMOGRAM due on 07/21/2021 COLORECTAL CANCER SCREENING due on 03/02/2022 HPI Keshia Rojas is a 70 year old female. [...] right wrist. Arthritis of the right thumb. Keshia Rojas called the office with report of left-sided facial swelling, no slurred speech no painor redness in the area no injury. She had a history of TIA and reported that she had right facial swelling and slurred speech at the time of her previous TIA. She was referred to emergency department. She was seen at [facility] on April 24, 2022 with report of left-sided jaw swelling and neck swelling. She reported this started on the day of arrival. noted no change from her usual appearance per notes. Exam showed some tenderness at the mandible and submandibular lymphadenopathy. CBC was completed and showed slight elevation of white cell count. Unremarkable metabolicpanel. CT neck with contrast showed no acute [...] mandibular pain, lymphadenopathy, possible angio edema per [facility] ER note 04/24/2022 Meclizine Swelling URINARY RETENTION,FACE [...] 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 11/02/12 EGD at [facility] (Dr. Charlton) Cataracts, both eyes Coronary atherosclerosis of unspecified type of vessel, [place] or graft minimal plaque on cath 08/06/2006 DVT (deep venous thrombosis) ([facility]) 2010 Right leg OCTOBER 2009 NOT TREATED Dysmetabolic syndrome X Esophageal reflux Fibromyalgia better with Lyrica Floppy eyelid syndrome Hiatal hernia Large when seen on EGD 10/2010 at [facility] (Dr. Chavarria) Irritable bowel syndrome Obesity Osteoarthritis [...] ICD10: R07.0 Resolving neck pain and swelling Juan Rodriguez APRN.CNS Medical Decision Making: Problems: Low: Acute, uncomplicated illness or injury Data: Independent interpretation of test from other physician/QHCP Risk: Moderate: Drug management Medical Decision Making Level: 4 - Moderate [facility] Alatorre [facility] April 24, 2022 8:33pm Note Date/Time April 24, 2022 4 :51pm [facility] Medical Records Department [address] [place] [address] Emergency Department Summary 04/24/22 MR#: [id number] Acct: [id number] Name: KESHIA ROJAS Rep #:[id number] : 1950 72 From: Rajinder Alatorre DO PCP: Dr. Paulo Scott MD Status:RE G ER Location: ED HPI History of Present Illness Chief Complaint: Edema Narrative Narrative: 72-year-old female presenting with left-sided jaw swelling and neck swelling. She states this started today. Patient denies any pain. She denies difficulty swallowing or breathing. She called her primary care office and the nurses linetold her to come to the emergency room for history of stroke. They wanted to rule out a stroke due to facial swelling. Patient denies paresthesia, disability, visual complaints, weakness. She states her face just feels a little swollen in this area. She has history of TIA. Her states she looks like she normally does. He does not appreciate any swelling. [facility] Medical History Anemia Arthritis Atherosclerotic heart disease of [place] coronary artery without angina pectoris Barretts esophagus Cataracts, bilateral Cholecystitis Cholelithiasis with chronic cholecystitis DDD (degenerative disc disease), lumbar DVT (deep venous thrombosis) Dysmetabolic syndrome X Environmental allergies Essential hypertension Fibromyalgia Gallstones Ganglion cyst GERD (gastroesophageal reflux disease) History of atrial dilatation History of DVT (deep vein thrombosis) Hypothyroidism IBS (irritable bowel syndrome) Osteoarthritis PAD (peripheral artery disease) Pancreatitis Pancreatitis, gallstone Segmental and somatic dysfunction of lumbar region Segmental and somatic dysfunction of pelvic region Segmental and somatic dysfunction of thoracic region TIA (transient ischemic attack) Home Medications gabapentin 100 mg capsule 300 mg PO QHS 01/11/14 [History Last Taken 02/08/19] levothyroxine 50 mcg tablet 50 mcg PO DAILY 01/11/14 [History Last Taken 02/09/19] lisinopril 10 mg tablet 10 mg PO DAILY hypertension 06/02/18 [History Last Taken 02/09/19] diazepam 5 mg tablet 5 mg PO QHS PRN anxiety 01/13/19 [History Last Taken 02/08/19] aspirin 81 mg tablet,delayed release 81 mg PO DAILY@0800 02/09/19 [History Last Taken 02/09/19] acetaminophen 325 mg capsule 325 mg PO ONCE PRN 04/08/19 [History Last Taken Unknown] multivitamin 1 tab PO DAILY 04/08/19 [History Last Taken Unknown] white petrolatum-mineral oil 94 %-3 % eye ointment (Systane Nighttime) 1 applic ophthalmic (eye) BID-QID PRN 04/08/19 [History Last Taken Unknown] albuterol sulfate 90 mcg/actuation aerosol inhaler (Ventolin HFA) 2 puff inhalation Q4H PRN shortness of breath or wheezing #18 grams 09/20/19 [Rx Last Taken Unknown] cholecalciferol (vitamin D3) 125 mcg (5,000 unit) capsule 125 mcg PO DAILY 10/11/19 [History Last Taken Unknown] inhalational spacing device (BreatheRite MDI Spacer) #1 ea 10/11/19 [Rx Last Taken Unknown] budesonide 0.5 mg/2 mL suspension for nebulization 0.5 mg (2 mL) inhalation BID #120 mL 08/06/21 [Rx Last Taken Unknown] Allergy/AdvReac Type Severity Reaction Status Date / Time adhesive Allergy Unknown Verified 04/24/22 14:40 aspirin [From Aggrenox] Allergy Unknown Verified 04/24/22 14:40 benzocaine [From Cetacaine] Allergy Unknown Verified 04/24/22 14:40 butamben [From Cetacaine] Allergy Unknown Verified 04/24/22 14:40 cortisone [Cortisone] Allergy Unknown Verified 04/24/22 14:40 dipyridamole [From Aggrenox] Allergy Unknown Verified 04/24/22 14:40 lansoprazole [From Prevacid] Allergy Unknown Verified 04/24/22 14:40 latex Allergy Unknown Verified 04/24/22 14:40 meclizine Allergy Unknown Verified 04/24/22 14:40 methylprednisolone acetate Allergy Angioedema Verified 04/24/22 14:40 [From Depo-Medrol] metoprolol Allergy Unknown Verified 04/24/22 14:40 omeprazole [From Prilosec] Allergy Unknown Verified 04/24/22 14:40 omeprazole magnesium Allergy Unknown Verified 04/24/22 14:40 [From Prilosec] oxybutynin chloride Allergy Unknown Verified 04/24/22 14:40 [From Ditropan] povidone-iodine Allergy Unknown Verified 04/24/22 14:40 [From Betadine] soap [From Betadine] Allergy Unknown Verified 04/24/22 14:40 sulfamethoxazole Allergy Unknown Verified 04/24/22 14:40 [From Bactrim] tegaserod [From Zelnorm] Allergy Hives Verified 04/24/22 14:40 tegaserod hydrogen maleate Allergy Unknown Verified 04/24/22 14:40 [From Zelnorm] tetracaine [From Cetacaine] Allergy Unknown Verified 04/24/22 14:40 tolterodine tartrate Allergy Unknown Verified 04/24/22 14:40 [From Detrol] trimethoprim [From Bactrim] Allergy Unknown Verified 04/24/22 14:40 adhesive tape AdvReac Rash Verified 04/24/22 14:40 codeine AdvReac Unknown Verified 04/24/22 14:40 mirabegron [From Myrbetriq] AdvReac Other Verified 04/24/22 14:40 tizanidine AdvReac Other Verified 04/24/22 14:40 vaccine adjuvant system, AdvReac Rash Verified 04/24/22 14:40 AS01B liposomal [From Shingrix (PF)] varicella-zoster virus AdvReac Rash Verified 04/24/22 14:40 glycoprotein E, recombinant [From Shingrix (PF)] Family History Mother Cancer Celiac disease Presence of permanent cardiac pacemaker Father Cancer Sister Hypertension Other Colon cancer Myocardial infarction Surgical History H/O hernia repair History of cholecystectomy History of esophagogastroduodenoscopy (EGD) History of laparotomy History of Robbie fundoplication History of tonsillectomy Hx of cardiac cath Hx of colonoscopy Hx of dilation and curettage hx of filter removal Hx of local excision of skin lesion Hx of superior vena cava filter placement Hx of tubal ligation S/P gastroplasty Social History Smoking Status: Never smoker alcohol intake: never substance use type: does not use caffeine: Yes Type: coffee Number of servings: 2 what type of physical activity do you participate in: walking frequency: 3-4 times per week ROS ROS ED Constitutional Constitutional ED: Denies chills or subjective Eyes Eyes: Denies change in vision ENT ENT ED: Reports other Details: Left jaw and neck pain Cardiovascular Cardiovascular: Denies chest pain Respiratory/Chest Respiratory/Chest: Denies cough or dyspnea Gastrointestinal Gastrointestinal: Denies abdominal pain Genitourinary Genitourinary ED: Denies dysuria or hematuria Musculoskeletal Musculoskeletal: Denies arthralgias Integumentary Denies abscess or Abrasions Neurologic Neurologic: Denies headache(s) or paresthesias Psychiatric Psychiatric: Denies anxiety or depression Endocrine Endocrinology: Denies cold intolerance or heat intolerance EXAM Physical Exam Const Vital Signs: 04/24/22 14:37 04/24/22 17:17 04/24/22 19:56 Temperature 98.3 F Temperature Source Temporal Pulse Rate 79 61 Respiratory Rate 16 17 Respiratory Effort Normal Non-Labored Respiratory Pattern Normal Blood Pressure 115/75 158/90 H Blood Pressure Mean 88 112 Pulse Ox 94 97 Oxygen Delivery Method Room Air Room Air Positive well nourished General Appearance ED: NAD HEENT Reports normocephalic and moist mucous membranes Negative for trauma Face and Sinus: normal facial exam Nose: external nose normal, nares normal and nasal mucous membranes and turbinates normal External Ear: external ears normal Mouth ED: Yes oral and palatal mucosa normal, Yes lips normal, Yes tongue normal, Yes salivary gland normal, No drooling, No mouth trauma and No muffled voice Mouth: oral and palatal mucosa normal, lips normal, tongue normal, salivary gland normal, No drooling, No mouth trauma and No muffled voice Teeth and Gingiva: Negative for abnormal tooth and associated gingiva Throat: posterior oropharynx normal; Negative for peritonsillar mass Eyes PERRL Neck full ROM General: lymphadenopathy submental (Left) and submandibular (Left) Thyroid: thyroid normal Carotids: Negative for carotid tenderness Chest Wall inspection of chest normal Resp normal respiratory effort and clear to auscultation bilaterally Cardio regular rate and regular rhythm GI normal to inspection, nondistended, normoactive bowel sounds Neuro oriented x3 and CN's II-XII intact bilaterally Sensorium / Orientation: alert Psych mental status grossly normal Skin no rashes or lesions noted MDM MDM MDM Narrative Medical decision making narrative: Patient presenting with neck pain and left-sided jaw pain. Started today. I donot appreciate any swelling on examination. Her thinks is looks symmetrical as well. She does have some tenderness in the angle of the mandibleand some submandibular lymphadenopathy on that side. She is minimally tender here. No sublingual edema. Tongue normal. Lips are not swollen. Buccal mucosa normal. Dentition normal. CBC to assess white blood cell count, hemoglobin, differential. BMP to assess renal function and electrolytes. Will obtain CT soft tissue neck with contrast. CBC is positive for white blood cell count 11.1. Hemoglobin Stable. Platelets normal at 319. Renal function electrolytes within normal limits. Obtained a CT soft tissue because of the patient's subjective sensation of swelling and possibly a little lymphadenopathyon that side. CT CT soft tissue neck was negative for any acute findings. Patient is however on lisinopril. I do not see any visible swelling but at mostthis could be angioedema. I will speak to her primary care physician about switching her blood pressure medicine. I spoke with Dr. Hernandez. I did tell her that the patient has no objective findings. Her CT scan and her blood work are normal. We would do her med list again. She has a lot of medication allergies. Dr. Hernandez wants to switch her to Norvasc 2.5 mg and lieu of the lisinopril just in case this is early angioedema. Patient was amenable to this. She is discharged home in stable condition. Impression: 1. Angioedema Lab Data Attestation: I reviewed the patient's lab results. Labs: Laboratory Results - last 24 hr 04/24/22 04/24/22 17:12 17:12 WBC 11.1 H RBC 4.79 Hgb 14.5 Hct 45.4 MCV 94.8 MCH 30.3 MCHC 31.9 L RDW Std Deviation 46.0 H RDW Coeff of Ronnie 13.2 Plt Count 319 MPV 9.5 Immature Gran % (Auto) 0.300 Neut % (Auto) 49.5 Lymph % (Auto) 34.8 [place] % (Auto) 7.7 Eos % (Auto) 6.8 H Baso % (Auto) 0.9 Absolute Neuts (auto) 5.5 Absolute Lymphs (auto) 3.87 Nucleated RBC % 0 Sodium 142 Potassium 3.8 Chloride 107 Carbon Dioxide 29.0 Anion Gap 6 BUN 16 Creatinine 0.79 Estim Creat Clear Calc 43.91 Est GFR (MDRD) Af Amer 92 Est GFR (MDRD) Non-Af 76 BUN/Creatinine Ratio 20.2 H Glucose 104 Calcium 9.3 Radiography Diagnostic Testing: Clinical Impression(s) from Imaging Studies Soft Tissue Neck CT 04/24/22 16:43 IMPRESSION: Negative CT Neck with contrast. Electronically Signed: Edin Sarah MD at 18:07 EST , Discharge Plan Triage Chief Complaint: Edema ED Provider: Rajinder Alatorre Dx/Rx/DC Orders Prescriptions: No Action multivitamin Tablet 1 tab PO DAILY acetaminophen 325 mg capsule 325 mg PO ONCE PRN Systane Nighttime 94-3 % ointment 1 applic OPHTHALMIC BID-QID PRN diazepam 5 mg tablet 5 mg PO QHS PRN (Reason: anxiety) (DME) BreatheRite MDI Spacer Spacer See Rx Instructions .ROUTE .MEDSUPPLY Qty: 1 0RF Rx Instructions: As directed cholecalciferol (vitamin D3) 125 mcg (5,000 unit) capsule 125 mcg PO DAILY albuterol sulfate [Ventolin HFA] 90 mcg/actuation HFA aerosol inhaler 2 puff INHALATION Q4H PRN (Reason: shortness of breath or wheezing) Qty: 18 6RF budesonide 0.5 mg/2 mL suspension for nebulization 0.5 mg INHALATION BID Qty: 120 6RF Rx Instructions: J45.40 levothyroxine 50 MCG tablet 50 mcg PO DAILY gabapentin 100 MG capsule 300 mg PO QHS lisinopril 10 MG tablet 10 mg PO DAILY aspirin 81 MG tablet 81 mg PO DAILY@0800 Primary Care Provider: Paulo Scott Referrals: Paulo Scott MD [Primary Care Provider] - What to do if you have Problems For any increased pain, shortness of breath, bleeding, nausea or vomiting, chestpain, or any unexpected problems, contact your Primary Care Provider. Call [facility] ([phone]) or report to the closest Emergency Room. Call 911 if necessary. 04/24/222032 <Electronically signed by Rajinder Alatorre DO> Cosigner Signature (if applicable): CC: Dr. Paulo Scott MD ~ Signed [facility] Work Phone: [phone]) 285-827402-08-2023 Miscellaneous Notes* Telephone Encounter - Norman Garcia APRN.CNP - 04/24/2022 2:46 PM EST Noted, agree * Telephone Encounter - Nataly Krueger RN - 04/24/2022 1:36 PM EST Patient call in for left side of [...] 9. OTHER SYMPTOMS: Denies Protocols used: Face [id number] [facility]12-[facility]-2022 Miscellaneous Notes* Telephone Encounter - Norman Garcia APRN.CNP - 02/25/2022 10:57 AM EST See my chart message. * Telephone Encounter - Nataly Krueger RN - 02/25/2022 9:38 AM EST Patient calling and asking about the urine culture. Patient noticed that it was abnormal. Patient pharmacy is [facility] if provider needs to send medication. Patient continues to have burning with urination. Can send response through My Chart. Please review and advise, Nataly Krueger RN documented in this encounterMedina Hospital12-06-2022 Miscellaneous Notes* Telephone Encounter - Norman Garcia APRN.CNP - 02/19/2022 9:56 AM EST PDMP website checked and validated. All prescriptions have been APPROPRIATELY filled. No suspiciousactivity was identified. 02/19/2022 by Norman Garcia APRN.CNP * Telephone Encounter - Arleen Hamm LPN - 02/19/2022 8:24 AM EST Patient has been identified by name and [...] you. Arleen Hamm LPN documented in this encounterMedina Hospital08-19-2022 Miscellaneous Notes* Telephone Encounter - Paulo Scott MD - 11/02/2021 6:56 PM EDT Okayed * Telephone Encounter - Arleen Hamm LPN - 11/01/2021 2:23 PM EDT Patient has been identified by name and [...] Please advise. Thank you. Arleen Hamm LPN * Telephone Encounter - Charo Salazar - 11/01/2021 2:06 PM EDT Patient has been identified by name and [...] notify patient. Charo Salazar documented in this encounterMedina Hospital07-21-2022 Miscellaneous Notes* Telephone Encounter - Adalgisa Alston LPN - 10/04/2021 2:27 PM EDT Providers message was sent to patient on [employer] as requested. * Telephone Encounter - Juan Rodriguez APRN.CNS - 10/04/2021 1:04 PM EDT she can check thyroid * Telephone Encounter - Maribel Brown RN - 10/04/2021 9:54 AM EDT Patient states she just completed prednisone that was prescribed to her from an ER visit. She plansto get thyroid labs completed and is asking if the prednisone will effect these labs or if she should wait a certain amount of time before getting then drawn. Patient asking to be advised using My Chart. Thank you. documented in this encounterMedina Hospital06-20-2022 Miscellaneous Notes* Telephone Encounter - Jessica Saini LPN - 09/03/2021 11:24 AM EDT Pt's daughter notified of new rx. Jessica Saini LPN * Telephone Encounter - Hillary Garcia RN - 09/03/2021 10:04 AM EDT Called and left a voicemail for the Patient's daughter to call back and ask for a nurse to receive the providers message. Hillary Garcia RN * Telephone Encounter - Paulo Scott MD - 08/31/2021 7:15 PM EDT The following approved medication requests have been transmitted electronically. Signed Prescriptions Disp Refills levothyroxine (SYNTHROID) 88 mcg tablet 90 tablet 0 Sig: Take 1 tablet by mouth once daily. Take on empty stomach. For Thyroid ANA PAULA: No Authorizing Provider: PAULO SCOTT MD * Telephone Encounter - Swathi Rowe - 08/31/2021 2:23 PM EDT Keshia Rojas is calling Paulo Scott MD office today. Patient lost her entire bottle of Levothyroxine 88 mcg. She called her mail order pharmacy and was instructed to have her provider send a new script to [facility] and she would need to pay out of pocket. [facility]RO[facility] 88 mcg tablet 90 tablet 3 08/23/2021 Sig: Take 1 tablet by mouth once daily. Take on empty stomach. For Thyroid Sent to pharmacy as: levothyroxine (SYNTHROID) 88 mcg tablet Class: Normal documented in this encounterMedina Hospital06-09-2022 History of Present illness Narrative* Paulo Scott MD - 08/23/2021 5:22 PM EDT This note was created using Poll[employer]. Subjective Keshia Rojas is a 71 year old female. Patient presents with: F/U 6 months SUBJECTIVE: Keshia Rojas is a 71 year old year old lady here today for 6 month follow up appointment for reviewof medical conditions. Genetic stomach cancer through her [...] Bloats since had GB out. Considering seeing DrShabnam Friend. 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 Charlton) Cataracts, both eyes Coronary atherosclerosis of unspecified type of vessel, [place] or graft minimal plaque on cath 08/06/2006 DVT (deep venous thrombosis) (HCC) 2010 Right leg OCTOBER 2009 NOT TREATED Dysmetabolic syndrome X Esophageal reflux Fibromyalgia better with Lyrica Floppy eyelid syndrome Hiatal hernia Large when seen on EGD 10/2010 at [facility] (Dr. Chavarria) Irritable bowel syndrome Obesity Osteoarthritis [...] Take 400 Units by mouth once daily. [facility] as directed. white petrolatum 94% - mineral oil 3% 94-3 % oint Dr. [facility] acetaminophen (TYLENOL) 325 mg tablet Take 650 mg by mouth every 6 hours as needed. Tylenol arthritis COMPOUNDED PRESCRIPTION [place] Antiseptic Powder (carbolic acid; zinc oxide) as [...] by mouth daily with breakfast. (Patient not taking:Reported on 07/11/2020 ) esomeprazole (NEXIUM 24HR) 20 [...] lifestyle changes for effective weight loss as wellas prevention of DM, and control of BP [...] on Diazepam. Also used for vertigo. Paulo Scott MD documented in this encounterMedina Hospital10-01-2021 History of Present illness Narrative* Rubén Gamino RT(R) - 12/15/2020 12:30 PM EDT Radiology Service Progress Note PATIENT NAME: Keshia Rojas DATE OF SERVICE: December 15, 2020 TIME: 12:22 PM PATIENT IDENTITY VERIFICATION COMPLETED USING TWO (2) IDENTIFIERS: Name and Date of confirmedby patient verbally. FALL SCREENING: Has the patient had 2 falls in the last year or 1 fall with injury or currently using an Ambulatory Assistive Device (Walker, Cane, Wheelchair, Crutches, etc.)? Yes, Patient High Riskfor Falls What interventions were put in place to prevent falls during this visit? Instructed Patient to Callfor Help if Needed, Offered Assistance with Transfers/Clothing and Increased Observations by Caregivers PATIENT GENDER DATA: Female. status: : No status: NO. PATIENT RELEVANT IMPLANT DATA REVIEWED: Yes RADIOLOGY DEPARTMENT: General X-ray: Exam(s) Completed: Upper Extremity X- Ray(s): Shoulder, AP / TRUE AP / AXILLARY right PERIPHERAL IV DATA: Not applicable SIGNED BY: RT Marlyn(Kerri) December 15, 2020 12:22 PM documented in this encounterMedina Hospital06-16-2021 History of Present illness Narrative* Eleuterio Moy RT(Kerri) - 08/30/2020 1:40 PM EDT Radiology Service Progress Note PATIENT NAME: Keshia Rojas DATE OF SERVICE: August 30, 2020 TIME: 1:41 PM PATIENT IDENTITY VERIFICATION COMPLETED USING TWO (2) IDENTIFIERS: Name and Date of confirmedby patient verbally. FALL SCREENING: Has the patient had 2 falls in the last year or 1 fall with injury or currently using an Ambulatory Assistive Device (Walker, Cane, Wheelchair, Crutches, etc.)? No PATIENT GENDER DATA: Female. status: : No status: NO. PATIENT RELEVANT IMPLANT DATA REVIEWED: Not Applicable RADIOLOGY DEPARTMENT: General X-ray: Exam(s) Completed: Upper Extremity X- Ray(s): Hand, right PERIPHERAL IV DATA: Not applicable SIGNED BY: AIMEE ClearyR) August 30, 2020 1:41 PM documented in this encounterMedina Hospital04-27-2021 History of Present illness Narrative* Kalli Calderón RT(R) - 07/11/2020 1:00 PM EDT Radiology Service Progress Note PATIENT NAME: Keshia Rojas DATE OF SERVICE: July 11, 2020 TIME: 1:13 PM PATIENT IDENTITY VERIFICATION COMPLETED USING TWO (2) IDENTIFIERS: Name and Date of confirmedby patient verbally. FALL SCREENING: Has the patient had 2 falls in the last year or 1 fall with injury or currently using an Ambulatory Assistive Device (Walker, Cane, Wheelchair, Crutches, etc.)? No PATIENT GENDER DATA: Female. status: : No status: NO. PATIENT RELEVANT IMPLANT DATA REVIEWED: Not Applicable RADIOLOGY DEPARTMENT: General X-ray: Exam(s) Completed: Spine X-Ray(s): Thoracic and Lumbar AP / LAT / L5-S1 PERIPHERAL IV DATA: Not applicable SIGNED BY: RT Niko(R) July 11, 2020 1:13 PM documented in this encounterMedina Hospital04-11-2012 History of Past illness Narrative* Problem Noted Date Resolved Date Discharge planning 06/26/2011 09/03/2011 Overview: 06/30/2011 Pt is and lives in [place], [place] At this time, we anticipate that the patient will be discharged home. Patient is in SNF after suffering a stroke. Patient requests home care for a home visit. Plan: - Per social work: [facility] in [facility] can assist. SW provided contact info for [...] 12/28/2016 Overview: 06/30/2011 TIA x2 2005, 2008. RELIEF SALESPERSON meds: ASA 81mg Plan: - resume ASA for homegoing . 1) Laparotomy 2) Joann almita roplasty 3) Wedge the gastric fundus 4) Robbie fundoplication 06/30/2011 Overview: 06/29/2011 - No c/o reflux post op. Slight nausea w/ some PO's (chicken broth, took others w/o complaint) RELIEF SALESPERSON meds: nexium 40mg daily plan: - pepcid IV changed to PO while in house - resume nexium at discharge. documented as of this encounter (statuses as of 08/27/2021) [facility] of Past illness Narrative* Problem Noted Date Resolved Date Discharge planning 06/26/2011 09/03/2011 Overview: 06/30/2011 Pt is and lives in [place], [place] At this time, we anticipate that the patient will be discharged home. Patient is in SNF after suffering a stroke. Patient requests home care for a home visit. Plan: - Per social work: Friends in [email or web address] can assist. SW provided contact info for [...] 12/28/2016 Overview: 06/30/2011 TIA x2 2005, 2008. RELIEF SALESPERSON meds: ASA 81mg Plan: - resume ASA for homegoing . 1) Laparotomy 2) Joann almita roplasty 3) Wedge the gastric fundus 4) Robbie fundoplication 06/30/2011 Overview: 06/29/2011 - No c/o reflux post op. Slight nausea w/ some PO's (chicken broth, took others w/o complaint) RELIEF SALESPERSON meds: nexium 40mg daily plan: - pepcid IV changed to PO while in house - resume nexium at discharge. documented as of this encounter (statuses as of 09/03/2021) [facility] of Past illness Narrative* Problem Noted Date Resolved Date Discharge planning 06/26/2011 09/03/2011 Overview: 06/30/2011 Pt is and lives in [place], [place] At this time, we anticipate that the patient will be discharged home. Patient is in SNF after suffering a stroke. Patient requests home care for a home visit. Plan: - Per social work: [facility] in [facility] can assist. SW provided contact info for [...] 12/28/2016 Overview: 06/30/2011 TIA x2 2005, 2008. RELIEF SALESPERSON meds: ASA 81mg Plan: - resume ASA for homegoing . 1) Laparotomy 2) Joann almita roplasty 3) Wedge the gastric fundus 4) Robbie fundoplication 06/30/2011 Overview: 06/29/2011 - No c/o reflux post op. Slight nausea w/ some PO's (chicken broth, took others w/o complaint) RELIEF SALESPERSON meds: nexium 40mg daily plan: - pepcid IV changed to PO while in house - resume nexium at discharge. documented as of this encounter (statuses as of 10/04/2021) [facility] of Past illness Narrative* Problem Noted Date Resolved Date Discharge planning 06/26/2011 09/03/2011 Overview: 06/30/2011 Pt is and lives in [place], [place] At this time, we anticipate that the patient will be discharged home. Patient is in SNF after suffering a stroke. Patient requests home care for a home visit. Plan: - Per social work: Friends in [facility] can assist. SW provided contact info for [...] 12/28/2016 Overview: 06/30/2011 TIA x2 2005, 2008. RELIEF SALESPERSON meds: ASA 81mg Plan: - resume ASA for homegoing . 1) Laparotomy 2) Joann almita roplasty 3) Wedge the gastric fundus 4) Robbie fundoplication 06/30/2011 Overview: 06/29/2011 - No c/o reflux post op. Slight nausea w/ some PO's (chicken broth, took others w/o complaint) RELIEF SALESPERSON meds: nexium 40mg daily plan: - pepcid IV changed to PO while in house - resume nexium at discharge. documented as of this encounter (statuses as of 10/20/2021) [facility] of Past illness Narrative* Problem Noted Date Resolved Date Discharge planning 06/26/2011 09/03/2011 Overview: 06/30/2011 Pt is and lives in [place], [place] At this time, we anticipate that the patient will be discharged home. Patient is in SNF after suffering a stroke. Patient requests home care for a home visit. Plan: - Per social work: [facility] in [facility] can assist. SW provided contact info for this [email or web address] to call when pt returns home if [...] 12/28/2016 Overview: 06/30/2011 TIA x2 2005, 2008. RELIEF SALESPERSON meds: ASA 81mg Plan: - resume ASA for homegoing . 1) Laparotomy 2) Joann almita roplasty 3) Wedge the gastric fundus 4) Robbie fundoplication 06/30/2011 Overview: 06/29/2011 - No c/o reflux post op. Slight nausea w/ some PO's (chicken broth, took others w/o complaint) RELIEF SALESPERSON meds: nexium 40mg daily plan: - pepcid IV changed to PO while in house - resume nexium at discharge. documented as of this encounter (statuses as of 11/02/2021) [facility] illness Narrative* Problem Noted Date Resolved Date Discharge planning 06/26/2011 09/03/2011 Overview: 06/30/2011 Pt is and lives in [place], [place] At this time, we anticipate that the patient will be discharged home. Patient is in SNF after suffering a stroke. Patient requests home care for a home visit. Plan: - Per social work: [facility] in [facility] can assist. SW provided contact info for [...] 12/28/2016 Overview: 06/30/2011 TIA x2 2005, 2008. RELIEF SALESPERSON meds: ASA 81mg Plan: - resume ASA for homegoing . 1) Laparotomy 2) Joann almita roplasty 3) Wedge the gastric fundus 4) Robbie fundoplication 06/30/2011 Overview: 06/29/2011 - No c/o reflux post op. Slight nausea w/ some PO's (chicken broth, took others w/o complaint) RELIEF SALESPERSON meds: nexium 40mg daily plan: - pepcid IV changed to PO while in house - resume nexium at discharge. documented as of this encounter (statuses as of 12/07/2021) [facility] of [facility] illness Narrative* Problem Noted Date Resolved Date Discharge planning 06/26/2011 09/03/2011 Overview: 06/30/2011 Pt is and lives in [place], [place] At this time, we anticipate that the patient will be discharged home. Patient is in SNF after suffering a stroke. Patient requests home care for a home visit. Plan: - Per social work: Friends in [facility] can assist. SW provided contact info for [...] 12/28/2016 Overview: 06/30/2011 TIA x2 2005, 2008. RELIEF SALESPERSON meds: ASA 81mg Plan: - resume ASA for homegoing . 1) Laparotomy 2) Joann almita roplasty 3) Wedge the gastric fundus 4) Robbie fundoplication 06/30/2011 Overview: 06/29/2011 - No c/o reflux post op. Slight nausea w/ some PO's (chicken broth, took others w/o complaint) RELIEF SALESPERSON meds: nexium 40mg daily plan: - pepcid IV changed to PO while in house - resume nexium at discharge. documented as of this encounter (statuses as of 02/19/2022) [facility]04-11-2012 History of Past illness Narrative* Problem Noted Date Resolved Date Discharge planning 06/26/2011 09/03/2011 Overview: 06/30/2011 Pt is and lives in [place], [place] At this time, we anticipate that the patient will be discharged home. Patient is in SNF after suffering a stroke. Patient requests home care for a home visit. Plan: - Per social work: Friends in [facility] can assist. SW provided contact info for [...] 12/28/2016 Overview: 06/30/2011 TIA x2 2005, 2008. RELIEF SALESPERSON meds: ASA 81mg Plan: - resume ASA for homegoing . 1) Laparotomy 2) Joann almita roplasty 3) Wedge the gastric fundus 4) Robbie fundoplication 06/30/2011 Overview: 06/29/2011 - No c/o reflux post op. Slight nausea w/ some PO's (chicken broth, took others w/o complaint) RELIEF SALESPERSON meds: nexium 40mg daily plan: - pepcid IV changed to PO while in house - resume nexium at discharge. documented as of this encounter (statuses as of 02/25/2022) [facility]04-[facility]2012 History of Past illness Narrative* Problem Noted Date Resolved Date Discharge planning 06/26/2011 09/03/2011 Overview: 06/30/2011 Pt is and lives in [place], [place] At this time, we anticipate that the patient will be discharged home. Patient is in SNF after suffering a stroke. Patient requests home care for a home visit. Plan: - Per social work: Friends in [facility] can assist. SW provided contact info for [...] 12/28/2016 Overview: 06/30/2011 TIA x2 2005, 2008. RELIEF SALESPERSON meds: ASA 81mg Plan: - resume ASA for homegoing . 1) Laparotomy 2) Joann almita roplasty 3) Wedge the gastric fundus 4) Robbie fundoplication 06/30/2011 Overview: 06/29/2011 - No c/o reflux post op. Slight nausea w/ some PO's (chicken broth, took others w/o complaint) RELIEF SALESPERSON meds: nexium 40mg daily plan: - pepcid IV changed to PO while in house - resume nexium at discharge. documented as of this encounter (statuses as of 03/21/2022) [facility]04-[facility]2012 History of Past illness Narrative* Problem Noted Date Resolved Date Discharge planning 06/26/2011 09/03/2011 Overview: 06/30/2011 Pt is and lives in [place], [place] At this time, we anticipate that the patient will be discharged home. Patient is in SNF after suffering a stroke. Patient requests home care for a home visit. Plan: - Per social work: Friends in [facility] can assist. SW provided contact info for [...] 12/28/2016 Overview: 06/30/2011 TIA x2 2005, 2008. RELIEF SALESPERSON meds: ASA 81mg Plan: - resume ASA for homegoing . 1) Laparotomy 2) Joann almita roplasty 3) Wedge the gastric fundus 4) Robbie fundoplication 06/30/2011 Overview: 06/29/2011 - No c/o reflux post op. Slight nausea w/ some PO's (chicken broth, took others w/o complaint) RELIEF SALESPERSON meds: nexium 40mg daily plan: - pepcid IV changed to PO while in house - resume nexium at discharge. documented as of this encounter (statuses as of 04/25/2022) [facility]2012 History of Past illness Narrative* Problem Noted Date Resolved Date Discharge planning 06/26/2011 09/03/2011 Overview: 06/30/2011 Pt is and lives in [place], [place] At this time, we anticipate that the patient will be discharged home. Patient is in SNF after suffering a stroke. Patient requests home care for a home visit. Plan: - Per social work: Friends in [facility] can assist. SW provided contact info for [...] 12/28/2016 Overview: 06/30/2011 TIA x2 2005, 2008. RELIEF SALESPERSON meds: ASA 81mg Plan: - resume ASA for homegoing . 1) Laparotomy 2) Joann almita roplasty 3) Wedge the gastric fundus 4) Robbie fundoplication 06/30/2011 Overview: 06/29/2011 - No c/o reflux post op. Slight nausea w/ some PO's (chicken broth, took others w/o complaint) RELIEF SALESPERSON meds: nexium 40mg daily plan: - pepcid IV changed to PO while in house - resume nexium at discharge. documented as of this encounter (statuses as of 04/26/2022) [facility]2012 History of Past illness Narrative* Problem Noted Date Resolved Date Discharge planning 06/26/2011 09/03/2011 Overview: 06/30/2011 Pt is and lives in [place], [place] At this time, we anticipate that the patient will be discharged home. Patient is in SNF after suffering a stroke. Patient requests home care for a home visit. Plan: - Per social work: [facility] in [facility] can assist. SW provided contact info for this [email or web address] to call when pt returns home if [...] 12/28/2016 Overview: 06/30/2011 TIA x2 2005, 2008. RELIEF SALESPERSON meds: ASA 81mg Plan: - resume ASA for homegoing . 1) Laparotomy 2) Joann almita roplasty 3) Wedge the gastric fundus 4) Robbie fundoplication 06/30/2011 Overview: 06/29/2011 - No c/o reflux post op. Slight nausea w/ some PO's (chicken broth, took others w/o complaint) RELIEF SALESPERSON meds: nexium 40mg daily plan: - pepcid IV changed to PO while in house - resume nexium at discharge. documented as of this encounter (statuses as of 05/08/2022) [facility]2012 History of Past illness Narrative* Problem Noted Date Resolved Date Discharge planning 06/26/2011 09/03/2011 Overview: 06/30/2011 Pt is and lives in [place], [place] At this time, we anticipate that the patient will be discharged home. Patient is in SNF after suffering a stroke. Patient requests home care for a home visit. Plan: - Per social work: Friends in [facility] can assist. SW provided contact info for this [email or web address] to call when pt returns home if [...] 12/28/2016 Overview: 06/30/2011 TIA x2 2005, 2008. RELIEF SALESPERSON meds: ASA 81mg Plan: - resume ASA for homegoing . 1) Laparotomy 2) Joann almita roplasty 3) Wedge the gastric fundus 4) Robbie fundoplication 06/30/2011 Overview: 06/29/2011 - No c/o reflux post op. Slight nausea w/ some PO's (chicken broth, took others w/o complaint) RELIEF SALESPERSON meds: nexium 40mg daily plan: - pepcid IV changed to PO while in house - resume nexium at discharge. documented as of this encounter (statuses as of 05/09/2022) [facility]2012 History of Past illness Narrative* Problem Noted Date Resolved Date Discharge planning 06/26/2011 09/03/2011 Overview: 06/30/2011 Pt is and lives in [place], [place] At this time, we anticipate that the patient will be discharged home. Patient is in SNF after suffering a stroke. Patient requests home care for a home visit. Plan: - Per social work: Friends in [facility] can assist. SW provided contact info for [...] 12/28/2016 Overview: 06/30/2011 TIA x2 2005, 2008. RELIEF SALESPERSON meds: ASA 81mg Plan: - resume ASA for homegoing . 1) Laparotomy 2) Joann almita roplasty 3) Wedge the gastric fundus 4) Robbie fundoplication 06/30/2011 Overview: 06/29/2011 - No c/o reflux post op. Slight nausea w/ some PO's (chicken broth, took others w/o complaint) RELIEF SALESPERSON meds: nexium 40mg daily plan: - pepcid IV changed to PO while in house - resume nexium at discharge. documented as of this encounter (statuses as of 05/22/2022) [facility]2012 History of Past illness Narrative* Problem Noted Date Resolved Date Discharge planning 06/26/2011 09/03/2011 Overview: 06/30/2011 Pt is and lives in [place], [place] At this time, we anticipate that the patient will be discharged home. Patient is in SNF after suffering a stroke. Patient requests home care for a home visit. Plan: - Per social work: Friends in [email or web address] can assist. SW provided contact info for [...] 12/28/2016 Overview: 06/30/2011 TIA x2 2005, 2008. RELIEF SALESPERSON meds: ASA 81mg Plan: - resume ASA for homegoing . 1) Laparotomy 2) Joann almita roplasty 3) Wedge the gastric fundus 4) Robbie fundoplication 06/30/2011 Overview: 06/29/2011 - No c/o reflux post op. Slight nausea w/ some PO's (chicken broth, took others w/o complaint) RELIEF SALESPERSON meds: nexium 40mg daily plan: - pepcid IV changed to PO while in house - resume nexium at discharge. documented as of this encounter (statuses as of 05/25/2022) [facility] History of Past illness Narrative* Problem Noted Date Resolved Date Discharge planning 06/26/2011 09/03/2011 Overview: 06/30/2011 Pt is and lives in [place] At this time, we anticipate that the patient will be discharged home. Patient is in SNF after suffering a stroke. Patient requests home care for a home visit. Plan: - Per social work: Friends in [facility] can assist. SW provided contact info for [...] 12/28/2016 Overview: 06/30/2011 TIA x2 2005, 2008. RELIEF SALESPERSON meds: ASA 81mg Plan: - resume ASA for homegoing . 1) Laparotomy 2) Joann almita roplasty 3) Wedge the gastric fundus 4) Robbie fundoplication 06/30/2011 Overview: 06/29/2011 - No c/o reflux post op. Slight nausea w/ some PO's (chicken broth, took others w/o complaint) RELIEF SALESPERSON meds: nexium 40mg daily plan: - pepcid IV changed to PO while in house - resume nexium at discharge. documented as of this encounter (statuses as of 06/10/2022) [facility] History of Past illness Narrative* Problem Noted Date Resolved Date Discharge planning 06/26/2011 09/03/2011 Overview: 06/30/2011 Pt is and lives in [place], [place] At this time, we anticipate that the patient will be discharged home. Patient is in SNF after suffering a stroke. Patient requests home care for a home visit. Plan: - Per social work: Friends in [facility] can assist. SW provided contact info for [...] 12/28/2016 Overview: 06/30/2011 TIA x2 2005, 2008. RELIEF SALESPERSON meds: ASA 81mg Plan: - resume ASA for homegoing . 1) Laparotomy 2) Joann almita roplasty 3) Wedge the gastric fundus 4) Robbie fundoplication 06/30/2011 Overview: 06/29/2011 - No c/o reflux post op. Slight nausea w/ some PO's (chicken broth, took others w/o complaint) RELIEF SALESPERSON meds: nexium 40mg daily plan: - pepcid IV changed to PO while in house - resume nexium at discharge. documented as of this encounter (statuses as of 06/17/2022) [facility] History of Past illness Narrative* Problem Noted Date Resolved Date Discharge planning 06/26/2011 09/03/2011 Overview: 06/30/2011 Pt is and lives in [place] At this time, we anticipate that the patient will be discharged home. Patient is in SNF after suffering a stroke. Patient requests home care for a home visit. Plan: - Per social work: Friends in [facility] can assist. SW provided contact info for [...] 12/28/2016 Overview: 06/30/2011 TIA x2 2005, 2008. RELIEF SALESPERSON meds: ASA 81mg Plan: - resume ASA for homegoing . 1) Laparotomy 2) Joann almita roplasty 3) Wedge the gastric fundus 4) Robbie fundoplication 06/30/2011 Overview: 06/29/2011 - No c/o reflux post op. Slight nausea w/ some PO's (chicken broth, took others w/o complaint) RELIEF SALESPERSON meds: nexium 40mg daily plan: - pepcid IV changed to PO while in house - resume nexium at discharge. documented as of this encounter (statuses as of 07/31/2022) [facility] History of Past illness Narrative* Problem Noted Date Resolved Date Discharge planning 06/26/2011 09/03/2011 Overview: 06/30/2011 Pt is and lives in [place] At this time, we anticipate that the patient will be discharged home. Patient is in SNF after suffering a stroke. Patient requests home care for a home visit. Plan: - Per social work: Friends in [facility] can assist. SW provided contact info for [...] 12/28/2016 Overview: 06/30/2011 TIA x2 2005, 2008. RELIEF SALESPERSON meds: ASA 81mg Plan: - resume ASA for homegoing . 1) Laparotomy 2) Joann almita roplasty 3) Wedge the gastric fundus 4) Robbie fundoplication 06/30/2011 Overview: 06/29/2011 - No c/o reflux post op. Slight nausea w/ some PO's (chicken broth, took others w/o complaint) RELIEF SALESPERSON meds: nexium 40mg daily plan: - pepcid IV changed to PO while in house - resume nexium at discharge. documented as of this encounter (statuses as of 08/20/2022) [facility] History of Past illness Narrative* Problem Noted Date Resolved Date Discharge planning 06/26/2011 09/03/2011 Overview: 06/30/2011 Pt is and lives in [place] At this time, we anticipate that the patient will be discharged home. Patient is in SNF after suffering a stroke. Patient requests home care for a home visit. Plan: - Per social work: Friends in [facility] can assist. SW provided contact info for [...] 12/28/2016 Overview: 06/30/2011 TIA x2 2005, 2008. RELIEF SALESPERSON meds: ASA 81mg Plan: - resume ASA for homegoing . 1) Laparotomy 2) Joann almita roplasty 3) Wedge the gastric fundus 4) Robbie fundoplication 06/30/2011 Overview: 06/29/2011 - No c/o reflux post op. Slight nausea w/ some PO's (chicken broth, took others w/o complaint) RELIEF SALESPERSON meds: nexium 40mg daily plan: - pepcid IV changed to PO while in house - resume nexium at discharge. documented as of this encounter (statuses as of 09/11/2022) [facility]2012 History of Past illness Narrative* Problem Noted Date Resolved Date Discharge planning 06/26/2011 09/03/2011 Overview: 06/30/2011 Pt is and lives in [place] At this time, we anticipate that the patient will be discharged home. Patient is in SNF after suffering a stroke. Patient requests home care for a home visit. Plan: - Per social work: Friends in [facility] can assist. SW provided contact info for [...] 12/28/2016 Overview: 06/30/2011 TIA x2 2005, 2008. RELIEF SALESPERSON meds: ASA 81mg Plan: - resume ASA for homegoing . 1) Laparotomy 2) Joann almita roplasty 3) Wedge the gastric fundus 4) Robbie fundoplication 06/30/2011 Overview: 06/29/2011 - No c/o reflux post op. Slight nausea w/ some PO's (chicken broth, took others w/o complaint) RELIEF SALESPERSON meds: nexium 40mg daily plan: - pepcid IV changed to PO while in house - resume nexium at discharge. documented as of this encounter (statuses as of 09/18/2022) [facility] History of Past illness Narrative* Problem Noted Date Resolved Date Discharge planning 06/26/2011 09/03/2011 Overview: 06/30/2011 Pt is and lives in [place] At this time, we anticipate that the patient will be discharged home. Patient is in SNF after suffering a stroke. Patient requests home care for a home visit. Plan: - Per social work: Friends in [facility] can assist. SW provided contact info for [...] 12/28/2016 Overview: 06/30/2011 TIA x2 2005, 2008. RELIEF SALESPERSON meds: ASA 81mg Plan: - resume ASA for homegoing . 1) Laparotomy 2) Joann almita roplasty 3) Wedge the gastric fundus 4) Robbie fundoplication 06/30/2011 Overview: 06/29/2011 - No c/o reflux post op. Slight nausea w/ some PO's (chicken broth, took others w/o complaint) RELIEF SALESPERSON meds: nexium 40mg daily plan: - pepcid IV changed to PO while in house - resume nexium at discharge. documented as of this encounter (statuses as of 09/19/2022) [facility] History of Past illness Narrative* Problem Noted Date Resolved Date Discharge planning 06/26/2011 09/03/2011 Overview: 06/30/2011 Pt is and lives in [place] At this time, we anticipate that [...] 12/28/2016 Overview: 06/30/2011 TIA x2 2005, 2008. RELIEF SALESPERSON meds: ASA 81mg Plan: - resume ASA for homegoing . 1) Laparotomy 2) Joann almita roplasty 3) Wedge the gastric fundus 4) Robbie fundoplication 06/30/2011 Overview: 06/29/2011 - No c/o reflux post op. Slight nausea w/ some PO's (chicken broth, took others w/o complaint) RELIEF SALESPERSON meds: nexium 40mg daily plan: - pepcid IV changed to PO while in house - resume nexium at discharge. documented as of this encounter (statuses as of 09/20/2022) [facility] History of Past illness Narrative* Problem Noted Date Diagnosed Date Resolved Date Discharge planning 06/26/2011 2 Overview: 06/30/2011 Pt is and lives in [place] At this time, we anticipate that the patient will be discharged home. Patient is in SNF after suffering a stroke. Patient requests home care for a home visit. Plan: - Per social work: [facility] in [facility] can assist. SW provided contact info for [...] 12/28/2016 Overview: 06/30/2011 TIA x2 2005, 2008. RELIEF SALESPERSON meds: ASA 81mg Plan: - resume ASA for homegoing . 1) Laparotomy 2) Joann almita roplasty 3) Wedge the gastric fundus 4) Robbie fundoplication 06/30/2011 Overview: 06/29/2011 - No c/o reflux post op. Slight nausea w/ some PO's (chicken broth, took others w/o complaint) RELIEF SALESPERSON meds: nexium 40mg daily plan: - pepcid IV changed to PO while in house - resume nexium at discharge. documented as of this encounter (statuses as of 09/24/2022) [facility] History of Past illness Narrative* Problem Noted Date Diagnosed Date Resolved Date Discharge planning 06/26/2011 2 Overview: 06/30/2011 Pt is and lives in [place] At this time, we anticipate that the patient will be discharged home. Patient is in SNF after suffering a stroke. Patient requests home care for a home visit. Plan: - Per social work: Friends in [facility] can assist. SW provided contact info for this [email or web address] to call when pt returns home if [...] 12/28/2016 Overview: 06/30/2011 TIA x2 2005, 2008. RELIEF SALESPERSON meds: ASA 81mg Plan: - resume ASA for homegoing . 1) Laparotomy 2) Joann almita roplasty 3) Wedge the gastric fundus 4) Robbie fundoplication 06/30/2011 Overview: 06/29/2011 - No c/o reflux post op. Slight nausea w/ some PO's (chicken broth, took others w/o complaint) RELIEF SALESPERSON meds: nexium 40mg daily plan: - pepcid IV changed to PO while in house - resume nexium at discharge. documented as of this encounter (statuses as of 10/29/2022) [facility] History of Past illness Narrative* Problem Noted Date Diagnosed Date Resolved Date Discharge planning 06/26/2011 2 Overview: 06/30/2011 Pt is and lives in [place] At this time, we anticipate that the patient will be discharged home. Patient is in SNF after suffering a stroke. Patient requests home care for a home visit. Plan: - Per social work: Friends in [facility] can assist. SW provided contact info for this [email or web address] to call when pt returns home if [...] 12/28/2016 Overview: 06/30/2011 TIA x2 2005, 2008. RELIEF SALESPERSON meds: ASA 81mg Plan: - resume ASA for homegoing . 1) Laparotomy 2) Joann almita roplasty 3) Wedge the gastric fundus 4) Robbie fundoplication 06/30/2011 Overview: 06/29/2011 - No c/o reflux post op. Slight nausea w/ some PO's (chicken broth, took others w/o complaint) RELIEF SALESPERSON meds: nexium 40mg daily plan: - pepcid IV changed to PO while in house - resume nexium at discharge. documented as of this encounter (statuses as of 11/11/2022) [facility] History of Past illness Narrative* Problem Noted Date Diagnosed Date Resolved Date Discharge planning 06/26/2011 2 Overview: 06/30/2011 Pt is and lives in [place], [place] At this time, we anticipate that the patient will be discharged home. Patient is in SNF after suffering a stroke. Patient requests home care for a home visit. Plan: - Per social work: Friends in [place] can assist. SW provided contact info for [...] 12/28/2016 Overview: 06/30/2011 TIA x2 2005, 2008. RELIEF SALESPERSON meds: ASA 81mg Plan: - resume ASA for homegoing . 1) Laparotomy 2) Joann almita roplasty 3) Wedge the gastric fundus 4) Robbie fundoplication 06/30/2011 Overview: 06/29/2011 - No c/o reflux post op. Slight nausea w/ some PO's (chicken broth, took others w/o complaint) RELIEF SALESPERSON meds: nexium 40mg daily plan: - pepcid IV changed to PO while in house - resume nexium at discharge. documented as of this encounter (statuses as of 01/19/2023) [facility] History of Past illness Narrative* Problem Noted Date Diagnosed Date Resolved Date Discharge planning 06/26/2011 2 Overview: 06/30/2011 Pt is and lives in [place] At this time, we anticipate that the patient will be discharged home. Patient is in SNF after suffering a stroke. Patient requests home care for a home visit. Plan: - Per social work: Friends in [facility] can assist. SW provided contact info for [...] 12/28/2016 Overview: 06/30/2011 TIA x2 2005, 2008. RELIEF SALESPERSON meds: ASA 81mg Plan: - resume ASA for homegoing . 1) Laparotomy 2) Joann almita roplasty 3) Wedge the gastric fundus 4) Robbie fundoplication 06/30/2011 Overview: 06/29/2011 - No c/o reflux post op. Slight nausea w/ some PO's (chicken broth, took others w/o complaint) RELIEF SALESPERSON meds: nexium 40mg daily plan: - pepcid IV changed to PO while in house - resume nexium at discharge. documented as of this encounter (statuses as of 02/12/2023) [facility] History of Past illness Narrative* Problem Noted Date Diagnosed Date Resolved Date Discharge planning 06/26/2011 2 Overview: 06/30/2011 Pt is and lives in [place] At this time, we anticipate that the patient will be discharged home. Patient is in SNF after suffering a stroke. Patient requests home care for a home visit. Plan: - Per social work: Friends in [facility] can assist. SW provided contact info for [...] 12/28/2016 Overview: 06/30/2011 TIA x2 2005, 2008. RELIEF SALESPERSON meds: ASA 81mg Plan: - resume ASA for homegoing . 1) Laparotomy 2) Joann almita roplasty 3) Wedge the gastric fundus 4) Robbie fundoplication 06/30/2011 Overview: 06/29/2011 - No c/o reflux post op. Slight nausea w/ some PO's (chicken broth, took others w/o complaint) RELIEF SALESPERSON meds: nexium 40mg daily plan: - pepcid IV changed to PO while in house - resume nexium at discharge. documented as of this encounter (statuses as of 02/21/2023) [facility] History of Past illness Narrative* Problem Noted Date Diagnosed Date Resolved Date Discharge planning 06/26/2011 2 Overview: 06/30/2011 Pt is and lives in [place] At this time, we anticipate that the patient will be discharged home. Patient is in SNF after suffering a stroke. Patient requests home care for a home visit. Plan: - Per social work: Friends in [facility] can assist. SW provided contact info for [...] 09/28/2005 12/28/2016 Overview: 06/30/2011 TIA x2 2005, 2009. RELIEF SALESPERSON meds: ASA 81mg Plan: - resume ASA for homegoing . 1) Laparotomy 2) Joann almita roplasty 3) Wedge the gastric fundus 4) Robbie fundoplication 06/30/2011 Overview: 06/29/2011 - No c/o reflux post op. Slight nausea w/ some PO's (chicken broth, took others w/o complaint) RELIEF SALESPERSON meds: nexium 40mg daily plan: - pepcid IV changed to PO while in house - resume nexium at discharge. documented as of this encounter (statuses as of 02/24/2023) [facility] History of Past illness Narrative* Problem Noted Date Diagnosed Date Resolved Date Discharge planning 06/26/2011 2 Overview: 06/30/2011 Pt is and lives in [place] At this time, we anticipate that the patient will be discharged home. Patient is in SNF after suffering a stroke. Patient requests home care for a home visit. Plan: - Per social work: Friends in [facility] can assist. SW provided contact info for [...] disease 09/28/2005 12/28/2016 Overview: 06/30/2011 TIA x2 2006, 2008. RELIEF SALESPERSON meds: ASA 81mg Plan: - resume ASA for homegoing . 1) Laparotomy 2) Joann almita roplasty 3) Wedge the gastric fundus 4) Robbie fundoplication 06/30/2011 Overview: 06/29/2011 - No c/o reflux post op. Slight nausea w/ some PO's (chicken broth, took others w/o complaint) RELIEF SALESPERSON meds: nexium 40mg daily plan: - pepcid IV changed to PO while in house - resume nexium at discharge. documented as of this encounter (statuses as of 04/29/2023) [facility] History of Past illness Narrative* Problem Noted Date Diagnosed Date Resolved Date Discharge planning 06/26/2011 2 Overview: 06/30/2011 Pt is and lives in [place] At this time, we anticipate that the patient will be discharged home. Patient is in SNF after suffering a stroke. Patient requests home care for a home visit. Plan: - Per social work: Friends in [facility] can assist. SW provided contact info for [...] 12/28/2016 Overview: 06/30/2011 TIA x2 2005, 2008. [employer]IE[employer]ESPERSON meds: ASA 81mg Plan: - resume ASA for homegoing . 1) Laparotomy 2) Joann almita roplasty 3) Wedge the gastric fundus 4) Robbie fundoplication 06/30/2011 Overview: 06/29/2011 - No c/o reflux post op. Slight nausea w/ some PO's (chicken broth, took others w/o complaint) [employer]IE[employer] SALESPERSON meds: nexium 40mg daily plan: - pepcid IV changed to PO while in house - resume nexium at discharge. documented as of this encounter (statuses as of 07/04/2023) [facility]04-11-2012 History of Past illness Narrative* Problem Noted Date Diagnosed Date Resolved Date Discharge planning 06/26/2011 2 Overview: 06/30/2011 Pt is and lives in [place], [place] At this time, we anticipate that the patient will be discharged home. Patient is in SNF after suffering a stroke. Patient requests home care for a home visit. Plan: - Per social work: Friends in [facility] can assist. SW provided contact info for [...] 12/28/2016 Overview: 06/30/2011 TIA x2 2005, 2008. RELIEF SALESPERSON meds: ASA 81mg Plan: - resume ASA for homegoing . 1) Laparotomy 2) Joann almita roplasty 3) Wedge the gastric fundus 4) Robbie fundoplication 06/30/2011 Overview: 06/29/2011 - No c/o reflux post op. Slight nausea w/ some PO's (chicken broth, took others w/o complaint) [employer]IEF SALESPERSON meds: nexium 40mg daily plan: - pepcid IV changed to PO while in house - resume nexium at discharge. documented as of this encounter (statuses as of 07/04/2023) [facility] [place] [facility] Diagnosis Family history of colon cancer Family history of malignant neoplasm of gastrointestinal tract Family history of gene mutation Personal history of colonic polyps [facility] [place] [facility] Diagnosis Encounter for screening mammogram for breast cancer documented in this encounter [facility] [place] [facility]* Diagnosis Acquired hypothyroidism Unspecified hypothyroidism documented in this encounter [facility] [place] [facility]* Diagnosis Onset Date Resolution Status Asthma chronic Chronic cough chronic [facility] Work Phone: evaluation note* Diagnosis Acquired hypothyroidism- Primary Unspecified hypothyroidism IFG (impaired fasting glucose) Impaired fasting glucose Vitamin D deficiency Unspecified vitamin D deficiency Essential hypertension Unspecified essential hypertension Vertigo Dizziness and giddiness OAB (overactive bladder) Hypertonicity of bladder Dysphagia, unspecified type Anxiety Anxiety state, unspecified [facility] [place] [facility]* Diagnosis Chronic bilateral low back pain with bilateral sciatica Acquired hypothyroidism Unspecified hypothyroidism [facility] [place] [facility]* Diagnosis Vertigo Dizziness and giddiness Anxiety Anxiety state, unspecified [facility] [place] [facility]* Diagnosis UTI symptoms- Primary Other symptoms involving urinary system documented in this encounter [facility] [place] [facility]* Diagnosis Vertigo Dizziness and giddiness Anxiety Anxiety state, unspecified [facility] [place] [facility]* Diagnosis Onset Date Resolution Status Asthma chronic [facility] Work Phone: Evaluation note* Diagnosis Submandibular lymphadenopathy- Primary Enlargement of lymph nodes Primary hypertension Unspecified essential hypertension Throat pain [facility] [place] [facility]* Diagnosis Onset Date Resolution Status Asthma chronic Bilateral leg pain acute Difficulty in walking acute Dizziness acute [facility] Work Phone: Evaluation note* Diagnosis Vertigo Dizziness and giddiness Anxiety Anxiety state, unspecified documented [facility] this encounter [facility] [place] [facility]* Diagnosis Pain in both lower extremities- Primary Bilateral leg edema Edema Imbalance Abnormality of gait Cold sore Herpes simplex without mention of complication documented in this encounter [facility] [place] [facility]* Diagnosis Vertigo Dizziness and giddiness Anxiety Anxiety state, unspecified documented in this encounter [facility] note* Diagnosis Rash- Primary Rash and other nonspecific skin eruption Intertrigo Other specified erythematous condition [facility] [place] [facility]* Diagnosis Vertigo Dizziness and giddiness Anxiety Anxiety state, unspecified documented in this encounter [facility] note* Diagnosis Onset Date Resolution Status Atherosclerotic heart diseas e of [place] coronary artery without angina pectoris chronic Essential hypertension chron ic Barretts esophagus acute Abdominal pain chronic Chronic cough chronic [facility] Work Phone: Evaluation note* Diagnosis Vertigo Dizziness and giddiness Anxiety Anxiety state, unspecified documented in this encounter [facility] note* Diagnosis Encounter for screening mammogram for breast cancer [facility] [place] [facility]* Diagnosis Chronic bilateral low back pain with bilateral sciatica documented in this encounter [facility] [place] [facility]* Diagnosis Acquired hypothyroidism- Primary Unspecified hypothyroidism Essential hypertension Unspecified essential hypertension Chronic bilateral low back pain with bilateral sciatica Elevated glucose Other abnormal glucose Mixed hyperlipidemia Encounter for immunization Need for other specified prophylactic vaccination against single bacterial disease Vertigo Dizziness and giddiness Anxiety Anxiety state, unspecified documented in this encounter [facility] note* Diagnosis Acquired hypothyroidism- Primary Unspecified hypothyroidism Mixed hyperlipidemia Essential hypertension Unspecified essential hypertension Anemia, unspecified type IFG (impaired fasting glucose) Impaired fasting glucose Medication monitoring encounter Encounter for therapeutic drug monitoring documented in this encounter [facility] note* Diagnosis Onset Date Resolution Status Atherosclerotic heart diseas e of [place] coronary artery without angina pectoris chronic Essential hypertension chron ic Abdominal pain chronic Barretts esophagus chronic Asthma chronic [facility] Work Phone: Evaluation note* Diagnosis Vertigo Dizziness and giddiness Anxiety Anxiety state, unspecified documented in this encounter [facility] [place] [facility]* Diagnosis Onset Date Resolution Status Abdominal pain chronic Barretts esophagus chronic Asthma chronic [facility] Work Phone: Evaluation note* Diagnosis Strain of lumbar region, subsequent encounter- Primary Chronic bilateral low back pain with bilateral sciatica documented in this encounter [facility] note* Diagnosis Acute pain of both knees- Primary Acute pain of both knees [facility] [place] [facility]* Diagnosis Acquired hypothyroidism Unspecified hypothyroidism [facility] [place] [facility]* Diagnosis Vertigo Dizziness and giddiness Anxiety Anxiety state, unspecified [facility] [place] [facility]* Diagnosis External hemorrhoid- Primary External hemorrhoids without mention of complication [facility] [place] [facility]* Diagnosis DDD (degenerative disc disease), lumbar- Primary Degeneration of lumbar or lumbosacral intervertebral disc Protrusion of lumbar intervertebral disc Spinal stenosis of lumbar region, unspecified whether neurogenic claudication present Vertigo Dizziness and giddiness Anxiety Anxiety state, unspecified Primary hypertension Unspecified essential hypertension Mixed hyperlipidemia Vitamin D deficiency Unspecified vitamin D deficiency IFG (impaired fasting glucose) Impaired fasting glucose Encounter for long-term current use of medication [facility] [place] [facility]* Diagnosis Encounter for screening mammogram for breast cancer documented in this encounter [facility] [place] [facility]* Diagnosis Acquired hypothyroidism Unspecified hypothyroidism Chronic bilateral low back pain with bilateral sciatica [facility] [place] [facility]* Diagnosis Acute pain of both knees [facility] [place] [facility]* Diagnosis Acute pain of right shoulder History of recent fall [facility] [place] [facility]* Diagnosis Trigger middle finger of right hand Trigger finger (acquired) Ganglion cyst Ganglion, unspecified Mass of wrist, right Mass of finger, right [facility] [place] [facility]* Diagnosis Back pain of thoracolumbar region Lumbago Contusion of middle back wall of thorax, sequela Lumbar contusion, sequela documented [facility] [place] [facility]* Diagnosis Vertigo Dizziness and giddiness Anxiety Anxiety state, unspecified [facility] [place] [facility]* Diagnosis Acute cough- Primary Acquired hypothyroidism Unspecified hypothyroidism Spinal stenosis of lumbar region, unspecified whether neurogenic claudication present Primary hypertension Unspecified essential hypertension Mixed hyperlipidemia Vitamin D deficiency Unspecified vitamin D deficiency Diet-controlled diabetes mellitus (HCC) Screening for depression documented in this encounter [facility] [place] [facility]* Diagnosis Chronic bilateral low back pain with bilateral sciatica documented in this encounter [facility] [place] [facility]* Diagnosis Chronic bilateral low back pain with bilateral sciatica [facility] [place] [facility]* Diagnosis Vertigo Dizziness and giddiness Anxiety Anxiety state, unspecified [facility] Diagnosis Encounter for screening mammogram for breast cancer [facility] Diagnosis Acquired hypothyroidism- Primary Unspecified hypothyroidism Primary hypertension Unspecified essential hypertension Mixed hyperlipidemia Chronic pain of left knee Pain in joint, lower leg Chronic bilateral low back pain with bilateral sciatica Encounter for immunization Need for other specified prophylactic vaccination against single bacterial disease [facility] Author Raul Casper [facility] April 23, 2023 8:31am Note Date/Time April 23, 2023 8 :31am [facility] Medical Records Department [address] [place] [address] History & Physical Exam 04/23/23 0830 MR#: [id number] Acct: [id number] Name: KESHIA ROJAS Rep #:[id number] : 1950 73 From: Raul Casper DO PCP: Dr. Paulo Scott MD Status:[facility] Location: [place] [address] History and Physical Date of Admission: 04/23/23 73 F who presents to the office today for [facility] ED 08.05.22. 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 Presents with constipation with only a small, hard BM in the last 24 hours with some minimal nausea without emesis. Discharged with [employer]. ? KUB moderate fecal burden *BGI 7.14.23 continues with constipation which she feels is r/t stress and dehydration because she is unable to eat or drink at work. 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 ? Biochemical CBC, ESR, CMP, LFT, LDH, GA(H473)ME, TERRELL, ANCA, JEB comp, celiac, IBD without pertinent abnormality ? CRP H5.65 Contact 8.. with bloodwork results. She is working at stool and urine samples. ? Stool calprotectin, elastase, lactoferrin, C.difficile (formed), EP, O/P, giardia WNL ? Urine porphyrins coproporhyrin H81, hexacarboxylporphyrin H<3 Contact 11.06.22 with results, recommend specialized porphyria urine testing. ? Urine .05.09 LC porphyria WNL OV 03.05.23- Pt doing well. Has eye surgery the . Says she is due for Colonoscopy. Is not having any abdominal pain. BM are sporadic.More constipation. Drinks prune and apple juice. Has a BM every day or so. Has lost 5bls since last visit. Continues to have heartburn with reflux. ROS Const Constitutional: Positive for fatigue and weakness ENT ENT: No difficulty swallowing Gastro GI: Positive for abdominal pain; No belching, bloating, change in bowel habits, change in stool character, coffeeground emesis, constipation, cramping, diarrhea, heartburn, difficulty swallowing, feeling full early, excessive flatus, incontinent of stools, Vomiting blood/hematemesis, Blood in stool, loose stools, Black,tarry stools, nausea/dyspepsia, pain with swallowing, vomiting or other Musc Musculoskeletal: No joint pain Skin Skin: No yellowing of the eye or itchy eyes Neuro Neurology: Positive for weakness Psych Psychiatric: No anxiety and No depression Endo Endocrine: Positive for fatigue Aller/Imm Allergy/Immunologic: No itchy eyes John/Lymp Hematologic/Lymphatic: No easy bleeding or easy bruising Exam Const General: cooperative and comfortable Nutritional Appearance: average body habitus and well nourished [facility] Head: normal to inspection Ears: hearing grossly normal bilaterally Nose: external nose normal Face and sinus: normal facial exam Mouth: oral mucosae normal Throat: posterior oropharynx normal Eyes General: appearance normal, both eyes and all related structures Neck Neck: normal visual inspection Chest Chest palpation & inspection: normal inspection of the chest and normal palpation of entire chest wall Resp Effort & Inspection: normal respiratory effort Auscultation: Bilateral: Clear to Auscultation Cardio Palpation: normal PMI Rate: regular rate Rhythm: regular rhythm GI Inspection: normal to inspection Auscultation: normal bowel sounds Percussion: normal to percussion Palpation: no hepatosplenomegaly Skin General: no rashes or lesions noted Neuro General: patient alert Extrem General: normal to inspection Psych Affect: normal affect Quality Reporting Tobacco Screening ([facility] 138) Smoking Status: Never smoker Assessment and Plan Assessment and Plan (1) Barretts esophagus: Status: Chronic Qualifiers: Sarmiento's esophagus type: without dysplasia Qualified Code(s): K22.70 -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 Plan: She will need to have a surveillance upper endoscopy for Sarmiento's esophagus. (2) Abdominal pain: Status: Chronic Qualifiers: Abdominal location: epigastric Qualified Code(s): R10.13 - Epigastric pain Plan: 73-year-old female extensive past medical history of anemia, CAD, Sarmiento's, irritable bowel, TIA and gallstone pancreatitis. She is able to to ligation andcholecystectomy. States for about a week she has been constipated. She has Very small bowel movements and can not go to the bathroom at work. She had nausea without vomiting. No dysuria. No fever. States she feels dehydrated. Her KUB showed constipation. Her last colonoscopy showed diverticular disease but no polyps. She does not have any alarm signs such as fever, weight loss, obstruction or bleeding per rectum. We will check her stools for occult blood will also check in 5 markers and stool studies. At and she will from Amitiza 8 mcg twice a day versus super greens and a teaspoon of lactulose. We will schedule her for surveillance colonoscopy due to her strong family history of colon cancer. Also she has a family history of stomach cancer in [place]. It is unknown which abnormality was Associated with his gastric cancer. I have examined the patient and the H&P has been reviewed. There are no clinical changes since date of exam. 04/23/23 5565 <Electronically signed by Raul Casper DO> Cosigner Signature (if applicable): CC: Dr. Paulo Scott MD; Raul Casper DO~ Signed [facility] Work Phone: Hospital Discharge instructions Additional Instructions Please be mindful of your constipation and note that all pain medication is constipating. Only take the pain medication if you truly neededWAvita [facility] Work Phone: Reason for referral (narrative)* Diagnostic Procedure Only (Routine) - Pending Review Specialty Diagnoses / Procedures Referred By Silvana escobar Referred To Contact BR IMAGING Diagnoses Encounter for screening mammogram for breast cancer Procedures FORTUNATO SCREENING SCREENING MAMMOGRAPHY BI 2-VIEW BREAST INC Paulo Antoine MD [address] [place] [address] [facility] [address] [place] [address] Referral ID Status Reason Start Date Expiration Date Visits Requested Visits Authorized [id number] Pending Review Auto-Generat ed Referral 08/22/2021 09/21/[address] [facility] for referral (narrative)* Diagnostic Procedure Only (Routine) - Closed Specialty Diagnoses / Procedures Referred By Silvana escobar Referred To Contact BR IMAGING Diagnoses Encounter for screening mammogram for breast cancer Procedures FORTUNATO SCREENING SCREENING MAMMOGRAPHY BI 2-VIEW BREAST INC Paulo Antoine MD [address] [place] [address] [facility] [address] [place] [address] Referral ID Status Reason Start Date Expiration Date V isits Requested Visits Authorized [id number] Closed Auto-Generate d Referral 08/22/2021 09/21/[address] [facility] for referral (narrative)* Diagnostic Procedure Only (Urgent) - Closed Specialty Diagnoses / Procedures Referred By Silvana escobar Referred To Contact XR IMAGING Diagnoses Acute pain of both knees Procedures XR KNEE GENERAL 4V AP BOTH/PA BOTH/LAT/MERC BILATERAL RADIOLOGIC EXAM KNEE COMPLETE 4/MORE VIEWS [facility] [address] [place] [address] [place] [address] Referral ID Status Reason Start Date Expiration Date V isits Requested Visits Authorized [id number] Closed Auto-Generate d Referral 07/22/2023 08/20/[address] [facility] for referral (narrative)* Diagnostic Procedure Only (Routine) - New Request Specialty Diagnoses / Procedures Referred By Silvana escobar Referred To Contact BR IMAGING Diagnoses Encounter for screening mammogram for breast cancer Procedures FORTUNATO SCREENING W MITCHELL SCREENING DIGITAL BREAST TOMOSYNTHESIS BI SCREENING MAMMOGRAPHY BI 2-VIEW BREAST INC CAD Paulo Scott MD [address] [place] [address] [facility] [address] [place] [address] Referral ID Status Reason Start Date Expiration Date Visits Requested Visits Authorized [id number] New Request Auto-Generat ed Referral 10/15/2023 11/13/[address] [facility] for referral (narrative)* Diagnostic Procedure Only (Urgent) - Closed Specialty Diagnoses / Procedures Referred By Silvana escobar Referred To Contact XR IMAGING Diagnoses Acute pain of both knees Procedures XR KNEE GENERAL 4V AP BOTH/PA BOTH/LAT/MERC BILATERAL RADIOLOGIC EXAM KNEE COMPLETE 4/MORE VIEWS [facility] [address] [place] [id number] Xr Imaging [id number] Referral ID Status Reason Start Date Expiration Date V isits Requested Visits Authorized [id number] Closed Auto-Generate d Referral 07/22/2023 08/20/[address] [facility] for referral (narrative)* Diagnostic Procedure Only (Routine) - Closed Specialty Diagnoses / Procedures Referred By Silvana escobar Referred To Contact XR IMAGING Diagnoses Acute pain of right shoulder History of recent fall Procedures XR SHOULDER GENERAL 3V OR MORE AP/TRUE AP/OTHER RT X-RAY SHOULDER COMPLET MIN 2 VIEWS Paulo Scott MD [address] [place] [address] [place] [address] Referral ID Status Reason Start Date Expiration Date V isits Requested Visits Authorized [id number] Closed Auto-Generate d Referral 12/15/2020 01/14/[address] [facility] for referral (narrative)No reason for referral information [facility] Work Phone: Reason for visit Narrative* Diagnostic Procedure Only (Routine) - Closed Specialty Diagnoses / Procedures Referred By Silvana t Referred To Contact BR IMAGING Diagnoses Encounter for screening mammogram for breast cancer Procedures FORTUNATO SCREENING SCREENING MAMMOGRAPHY BI 2-VIEW BREAST INC CAD Paulo Scott MD [address] [place] [address] [facility] [address] [place] [address] Referral ID Status Reason Start Date Expiration Date V isits Requested Visits Authorized [id number] Closed Auto-Generate d Referral 08/22/2021 09/21/[address] [facility] for visit Narrative* Diagnostic Procedure Only (Urgent) - Closed Specialty Diagnoses / Procedures Referred By Silvana t Referred To Contact XR IMAGING Diagnoses Acute pain of both knees Procedures XR KNEE GENERAL 4V AP BOTH/PA BOTH/LAT/MERC BILATERAL RADIOLOGIC EXAM KNEE COMPLETE 4/MORE VIEWS [facility] [address] [place] [address] [place] [address] Referral ID Status Reason Start Date Expiration Date V isits Requested Visits Authorized [id number] Closed Auto-Generate d Referral 07/22/2023 08/20/[address] [facility] for visit Narrative* Diagnostic Procedure Only (Routine) - Closed Specialty Diagnoses / Procedures Referred By Silvana t Referred To Contact XR IMAGING Diagnoses Acute pain of right shoulder History of recent fall Procedures XR SHOULDER GENERAL 3V OR MORE AP/TRUE AP/OTHER RT X-RAY SHOULDER COMPLET MIN 2 VIEWS Paulo Scott MD [address] [place] [address] [place] [address] Referral ID Status Reason Start Date Expiration Date V isits Requested Visits Authorized [id number] Closed Auto-Generate d Referral 12/15/2020 01/14/[address] [facility] for visit Narrative* Diagnostic Procedure Only (Routine) - Closed Specialty Diagnoses / Procedures Referred By Silvana t Referred To Contact BR IMAGING Diagnoses Encounter for screening mammogram for breast cancer Procedures FORTUNATO SCREENING W MITCHELL SCREENING DIGITAL BREAST TOMOSYNTHESIS BI SCREENING MAMMOGRAPHY BI 2-VIEW BREAST INC CAD Paulo Scott MD [address] [place] [address] [facility] [address] [place] [address] Referral ID Status Reason Start Date Expiration Date V isits Requested Visits Authorized [id number] Closed Auto-Generate d Referral 10/15/2023 11/13/2024 1 1 [facility] Reason for Referral Status Reason Specialty Diagnoses / Procedures Referred By Contact Referred To Contact Open Specialty Services Required Lab Diagnoses Family history of colon cancer Family history of gene mutation Personal history of colonic polyps Procedures Genetic Sendout: Common Hereditary Cancers Panel Quoc Diaz MD [address] [place] [address], [address] [place] [address] Specialty Diagnoses / Procedures Referred By Contac t Referred To Contact Diagnoses Ryan Giles MD [address] [place] [address] Referral ID Status Reason Start Date Expiration Date V isits Requested Visits Authorized [id number] Authorized 03/17/2022 03/16/2023 1 1 Specialty Diagnoses / Procedures Referred By Contac t Referred To Contact Diagnoses Strain of lumbar region, subsequent encounter Chronic bilateral low back pain with bilateral sciatica Norman Garcia, GIDEON.RESIDENTIAL DIRECTOR [address] [place] [address] Referral ID Status Reason Start Date Expiration Date Visits Re quested Visits Authorized [id number] Closed 1 1 Advance Directives No Advanced Directives Records FoundDocuments on File Type Date Recorded 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 Power of Biochemistry Technologist Documents on File Type Date Recorded 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 Advance Directive(s) 10/26/2020 12:30 PM Advance Directive(s) 09/29/2020 11:26 AM Advance Directive(s) 06/24/2011 6:54 PM Documents on File Type Date Recorded 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 Advance Directive(s) 10/26/2020 12:30 PM Advance Directive(s) 09/29/2020 11:26 AM Advance Directive(s) 06/24/2011 6:54 PM Advance Directive Response Recorded Date/ Time Advance Directives No March 21, 2016 4:58pm Living Will No September 18, 2021 1 2:12pm Power of Biochemistry Technologist No September 18, 2021 12:12pm Documents on File Type Date Recorded 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 Advance Directive(s) 06/24/2011 6:54 PM Advance Directive Response Recorded Date/ Time Advance Directives No March 21, 2016 3:58pm Living Will No April 24 5:17pm Power of Biochemistry Technologist No April 24, 2022 5:17pm Advance Directive Response Recorded Date/ Time Name of Medical Power of Biochemistry Technologist unsure May 05, 2022 1:24pm Advance Directives No March 21, 2016 3:58pm Living Will Yes May 05, 023 1:24pm Power of Biochemistry Technologist Yes May 05, 2022 1:24pm Advance Directive Response Recorded Date/ Time Name of Medical Power of Biochemistry Technologist joshua Royal May 05, 2022 7:36pm Advance Directives No March 21, 2016 3:58pm Living Will Yes May 05, 2 023 7:36pm Power of Biochemistry Technologist Yes May 05, 2022 7:36pm Documents on File Type Date Recorded 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 Advance Directive(s) 06/24/2011 6:54 PM Advance Directive Response Recorded Date/ Time Name of Medical Power of Biochemistry Technologist karo sanchez August 05, 2022 2:58pm Advance Directives No March 21, 2016 4:58pm Living Will Yes August 05, 2022 2 :58pm Power of Biochemistry Technologist Yes August 05, 2022 2:58pm Advance Directive Response Recorded Date/ Time Name of Medical Power of Biochemistry Technologist ESTEFANÍAAgus DGDARI SANCHEZ April 21, 2023 9:33am Advance Directives No March 21, 2016 3:58pm Living Will Yes April 21 9:33am Power of Biochemistry Technologist Yes April 21, 2023 9:33am Advance Directive Response Recorded Date/ Time Name of Medical Power of Biochemistry Technologist ESTEFANÍAAgus DGDARI SANCHEZ April 21, 2023 10:33am Advance Directives No March 21, 2016 4:58pm Living Will No June 19, 2023 12:34pm Power of Biochemistry Technologist No June 18 12:34pm Advance Directive Response Recorded Date/ Time Living Will No June 19, 2023 12:34pm Do you have a Healthcare Power of Biochemistry Technologist? No June 19, 2023 12:34pm Advance Directives No March 21, 2016 4:58pm Chief Complaint and Reason for Visit Chief Complaint CHRONIC COUGH 3 M FU RASH, EYE SWELLING Reason for Visit Asthma Chronic cough Chief Complaint 6 M FU EDEMA Reason for Visit Asthma Chief Complaint 6 M FU EDEMA INABILITY TO WALK Reason for Visit Asthma Bilateral leg pain Difficulty in walking Dizziness Chief Complaint 6 M FU EDEMA INABILITY TO WALK INABILITY TO WALK INABILITY TO WALK Reason for Visit Asthma Bilateral leg pain Difficulty in walking Dizziness Chief Complaint OVERDUE FOR FU ab pain Consult E-ORDER 6 M FU E-ORDER E-ORDER Reason for Visit Atherosclerotic hear t disease of [place] coronary artery without angina pectoris Essential hypertension Barretts esophagus Abdominal pain Chronic cough Chief Complaint 6 M FU 5 MO FU 6 M FU Reason for Visit Atherosclerotic hear t disease of [place] coronary artery without angina pectoris Essential hypertension Abdominal pain Barretts esophagus Asthma Chief Complaint 5 MO FU 6 M FU PAIN Reason for Visit Abdominal pain Barretts esophagus Asthma Chief Complaint Admit Date 6 M FU February 20, 2024 1 :02pm RIGHT KNEE March 12, 2024 10:26am Room 1 March 12, 2024 10:46am RIGHT KNEE April 02, 2024 8 :59am DIARRHEA, ABDOMINAL PAIN April 08 8:58am RIGHT KNEE April 09, 2024 1 0:36am RIGHT KNEE April 16, 2024 9 :19am XRAY LEFT SHOULDER PAIN May 26, 2024 10:10am Reason for Visit Admit Date Diarrhea February 20, 2024 1 :02pm Abdominal pain February 20, 2024 1 :02pm Barretts esophagus February 20, 2024 1 :02pm 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, 2024 10:26am Right knee DJD April 02, 2024 8 :59am Right knee DJD April 09, 2024 1 0:36am Right knee DJD April 16, 2024 9 :19am Family History No Family History Records Found Relationship Condition Age at Onset Recorded Date/T bing Not Specified Malignant neoplasm of colon Unknown Myocardial infarction Unknown mother Malignant neoplasm Unknown Celiac disease Unknown Presence of permanent cardiac pacemaker U nknown father Malignant neoplasm Unknown sister Hypertension Unknown Summary Purpose Additional Source Comments Reason for Visit (unrecogniz ed section and content) Status Reason Specialty Diagnoses / Procedures Referred By Contact Referred To Contact [facility] Required Lab Diagnoses Family history of colon cancer Family history of gene mutation Personal history of colonic polyps Procedures Genetic Sendout: Common Hereditary Cancers Panel Quoc Diaz MD [address] [place] [address], [address] [place] [address] Reason Comments Medication Problem Reason Comments Patient Question Reason Comments F/U 6 months Reason Onset Date Comments Refill Request 11/01/2021 Reason Onset Date Comments Refill Request 02/19/2022 Reason Comments Results Reason Onset Date Comments Refill Request 03/19/2022 Reason Comments Face Swelling Reason Comments Hospital F/U Reason Comments [facility] HH, PT, plan of care FYI-No Action Needed Reason Comments [facility] HH, OT update/verbal order Reason Onset Date [...] Comments Follow Up Reason Comments Lab Orders Reason Onset Date Comments Refill Request 04/28/2023 Reason Comments ED Follow-up back strain from try ing to left Reason Comments Insurance Authorization Reason Comments Knee Pain bilateral knee pain x last night, back pain sprained 2 weeks ago Reason Onset Date Comments Refill Request 08/21/2023 Reason Comments Future Appointment Reason Comments Same Day Appointment lump near anus sinc e last night,no blood , sore to touch, family h/o colon cancer Reason Comments F/U 6 months Labs prior Reason Onset Date Comments Refill Request 11/11/2023 Reason Onset Date Comments Refill Request 12/24/2023 Reason Comments Recheck Cough for about 1 week. Mo ist productive Reason Onset Date Comments Refill Request 02/11/2024 Reason Onset Date Comments Refill Request 02/20/2024 Reason Onset Date Comments Refill Request 02/22/2024 Reason Comments Follow Up 4 month f/u Source Comments (unrecognize d section and content) In the event this informatio n is protected by the Federal Confidentiality of Alcohol and Drug Abuse Patient Records regulations: The Federal rules restrict any use of the information to criminally investigate or prosecute any alcohol or drug abuse patient.[facility] the event this information is protected by the Federal Confidentiality of Alcohol and Drug Abuse Patient Records regulations: The Federal rules restrict any use of the information to criminally investigate or prosecute any alcohol or drug abuse patient.[facility] HospitalIn the event this information is protected by the Federal Confidentiality of Alcohol and Drug Abuse Patient Records regulations: The Federal rules restrict any use of the information to criminally investigate or prosecute any alcohol or drug abuse patient.[facility] HospitalIn the event this information is protected by the Federal Confidentiality of Alcohol and Drug Abuse Patient Records regulations: The Federal rules restrict any use of the information to criminally investigate or prosecute any alcohol or drug abuse patient.[facility] HospitalIn the event this information is protected by the Federal Confidentiality of Alcohol and Drug Abuse Patient Records regulations: The Federal rules restrict any use of the information to criminally investigate or prosecute any alcohol or drug abuse patient.[facility] HospitalIn the event this information is protected by the Federal Confidentiality of Alcohol and Drug Abuse Patient Records regulations: The Federal rules restrict any use of the information to criminally investigate or prosecute any alcohol or drug abuse patient.[facility] HospitalIn the event this information is protected by the Federal Confidentiality of Alcohol and Drug Abuse Patient Records regulations: The Federal rules restrict any use of the information to criminally investigate or prosecute any alcohol or drug abuse patient.[facility] HospitalIn the event this information is protected by the Federal Confidentiality of Alcohol and Drug Abuse Patient Records regulations: The Federal rules restrict any use of the information to criminally investigate or prosecute any alcohol or drug abuse patient.[facility] HospitalIn the event this information is protected by the Federal Confidentiality of Alcohol and Drug Abuse Patient Records regulations: The Federal rules restrict any use of the information to criminally investigate or prosecute any alcohol or drug abuse patient.[facility] HospitalIn the event this information is protected by the Federal Confidentiality of Alcohol and Drug Abuse Patient Records regulations: The Federal rules restrict any use of the information to criminally investigate or prosecute any alcohol or drug abuse patient.[facility] HospitalIn the event this information is protected by the Federal Confidentiality of Alcohol and Drug Abuse Patient Records regulations: The Federal rules restrict any use of the information to criminally investigate or prosecute any alcohol or drug abuse patient.[facility] HospitalIn the event this information is protected by the Federal Confidentiality of Alcohol and Drug Abuse Patient Records regulations: The Federal rules restrict any use of the information to criminally investigate or prosecute any alcohol or drug abuse patient.[facility] HospitalIn the event this information is protected by the Federal Confidentiality of Alcohol and Drug Abuse Patient Records regulations: The Federal rules restrict any use of the information to criminally investigate or prosecute any alcohol or drug abuse patient.[facility] HospitalIn the event this information is protected by the Federal Confidentiality of Alcohol and Drug Abuse Patient Records regulations: The Federal rules restrict any use of the information to criminally investigate or prosecute any alcohol or drug abuse patient.[facility] HospitalIn the event this information is protected by the Federal Confidentiality of Alcohol and Drug Abuse Patient Records regulations: The Federal rules restrict any use of the information to criminally investigate or prosecute any alcohol or drug abuse patient.[facility] HospitalIn the event this information is protected by the Federal Confidentiality of Alcohol and Drug Abuse Patient Records regulations: The Federal rules restrict any use of the information to criminally investigate or prosecute any alcohol or drug abuse patient.[facility] HospitalIn the event this information is protected by the Federal Confidentiality of Alcohol and Drug Abuse Patient Records regulations: The Federal rules restrict any use of the information to criminally investigate or prosecute any alcohol or drug abuse patient.[facility] HospitalIn the event this information is protected by the Federal Confidentiality of Alcohol and Drug Abuse Patient Records regulations: The Federal rules restrict any use of the information to criminally investigate or prosecute any alcohol or drug abuse patient.[facility] HospitalIn the event this information is protected by the Federal Confidentiality of Alcohol and Drug Abuse Patient Records regulations: The Federal rules restrict any use of the information to criminally investigate or prosecute any alcohol or drug abuse patient.[facility] HospitalIn the event this information is protected by the Federal Confidentiality of Alcohol and Drug Abuse Patient Records regulations: The Federal rules restrict any use of the information to criminally investigate or prosecute any alcohol or drug abuse patient.[facility] HospitalIn the event this information is protected by the Federal Confidentiality of Alcohol and Drug Abuse Patient Records regulations: The Federal rules restrict any use of the information to criminally investigate or prosecute any alcohol or drug abuse patient.[facility] HospitalIn the event this information is protected by the Federal Confidentiality of Alcohol and Drug Abuse Patient Records regulations: The Federal rules restrict any use of the information to criminally investigate or prosecute any alcohol or drug abuse patient.[facility] HospitalIn the event this information is protected by the Federal Confidentiality of Alcohol and Drug Abuse Patient Records regulations: The Federal rules restrict any use of the information to criminally investigate or prosecute any alcohol or drug abuse patient.[facility] HospitalIn the event this information is protected by the Federal Confidentiality of Alcohol and Drug Abuse Patient Records regulations: The Federal rules restrict any use of the information to criminally investigate or prosecute any alcohol or drug abuse patient.[facility] HospitalIn the event this information is protected by the Federal Confidentiality of Alcohol and Drug Abuse Patient Records regulations: The Federal rules restrict any use of the information to criminally investigate or prosecute any alcohol or drug abuse patient.[facility] HospitalIn the event this information is protected by the Federal Confidentiality of Alcohol and Drug Abuse Patient Records regulations: The Federal rules restrict any use of the information to criminally investigate or prosecute any alcohol or drug abuse patient.[facility] HospitalIn the event this information is protected by the Federal Confidentiality of Alcohol and Drug Abuse Patient Records regulations: The Federal rules restrict any use of the information to criminally investigate or prosecute any alcohol or drug abuse patient.[facility] HospitalIn the event this information is protected by the Federal Confidentiality of Alcohol and Drug Abuse Patient Records regulations: The Federal rules restrict any use of the information to criminally investigate or prosecute any alcohol or drug abuse patient.[facility] HospitalIn the event this information is protected by the Federal Confidentiality of Alcohol and Drug Abuse Patient Records regulations: The Federal rules restrict any use of the information to criminally investigate or prosecute any alcohol or drug abuse patient.[facility] HospitalIn the event this information is protected by the Federal Confidentiality of Alcohol and Drug Abuse Patient Records regulations: The Federal rules restrict any use of the information to criminally investigate or prosecute any alcohol or drug abuse patient.[facility] HospitalIn the event this information is protected by the Federal Confidentiality of Alcohol and Drug Abuse Patient Records regulations: The Federal rules restrict any use of the information to criminally investigate or prosecute any alcohol or drug abuse patient.[facility] HospitalIn the event this information is protected by the Federal Confidentiality of Alcohol and Drug Abuse Patient Records regulations: The Federal rules restrict any use of the information to criminally investigate or prosecute any alcohol or drug abuse patient.[facility] HospitalIn the event this information is protected by the Federal Confidentiality of Alcohol and Drug Abuse Patient Records regulations: The Federal rules restrict any use of the information to criminally investigate or prosecute any alcohol or drug abuse patient.[facility] HospitalIn the event this information is protected by the Federal Confidentiality of Alcohol and Drug Abuse Patient Records regulations: The Federal rules restrict any use of the information to criminally investigate or prosecute any alcohol or drug abuse patient.[facility] HospitalIn the event this information is protected by the Federal Confidentiality of Alcohol and Drug Abuse Patient Records regulations: The Federal rules restrict any use of the information to criminally investigate or prosecute any alcohol or drug abuse patient.[facility] HospitalIn the event this information is protected by the Federal Confidentiality of Alcohol and Drug Abuse Patient Records regulations: The Federal rules restrict any use of the information to criminally investigate or prosecute any alcohol or drug abuse patient.[facility] HospitalIn the event this information is protected by the Federal Confidentiality of Alcohol and Drug Abuse Patient Records regulations: The Federal rules restrict any use of the information to criminally investigate or prosecute any alcohol or drug abuse patient.[facility] HospitalIn the event this information is protected by the Federal Confidentiality of Alcohol and Drug Abuse Patient Records regulations: The Federal rules restrict any use of the information to criminally investigate or prosecute any alcohol or drug abuse patient.[facility] HospitalIn the event this information is protected by the Federal Confidentiality of Alcohol and Drug Abuse Patient Records regulations: The Federal rules restrict any use of the information to criminally investigate or prosecute any alcohol or drug abuse patient.[facility] HospitalIn the event this information is protected by the Federal Confidentiality of Alcohol and Drug Abuse Patient Records regulations: The Federal rules restrict any use of the information to criminally investigate or prosecute any alcohol or drug abuse patient.[facility] HospitalIn the event this information is protected by the Federal Confidentiality of Alcohol and Drug Abuse Patient Records regulations: The Federal rules restrict any use of the information to criminally investigate or prosecute any alcohol or drug abuse patient.[facility] HospitalIn the event this information is protected by the Federal Confidentiality of Alcohol and Drug Abuse Patient Records regulations: The Federal rules restrict any use of the information to criminally investigate or prosecute any alcohol or drug abuse patient.[facility] HospitalIn the event this information is protected by the Federal Confidentiality of Alcohol and Drug Abuse Patient Records regulations: The Federal rules restrict any use of the information to criminally investigate or prosecute any alcohol or drug abuse patient.[facility] HospitalIn the event this information is protected by the Federal Confidentiality of Alcohol and Drug Abuse Patient Records regulations: The Federal rules restrict any use of the information to criminally investigate or prosecute any alcohol or drug abuse patient.[facility] HospitalIn the event this information is protected by the Federal Confidentiality of Alcohol and Drug Abuse Patient Records regulations: The Federal rules restrict any use of the information to criminally investigate or prosecute any alcohol or drug abuse patient.[facility] HospitalIn the event this information is protected by the Federal Confidentiality of Alcohol and Drug Abuse Patient Records regulations: The Federal rules restrict any use of the information to criminally investigate or prosecute any alcohol or drug abuse patient.[facility] HospitalIn the event this information is protected by the Federal Confidentiality of Alcohol and Drug Abuse Patient Records regulations: The Federal rules restrict any use of the information to criminally investigate or prosecute any alcohol or drug abuse patient.[facility] HospitalIn the event this information is protected by the Federal Confidentiality of Alcohol and Drug Abuse Patient Records regulations: The Federal rules restrict any use of the information to criminally investigate or prosecute any alcohol or drug abuse patient.[facility] HospitalIn the event this information is protected by the Federal Confidentiality of Alcohol and Drug Abuse Patient Records regulations: The Federal rules restrict any use of the information to criminally investigate or prosecute any alcohol or drug abuse patient.[facility] HospitalIn the event this information is protected by the Federal Confidentiality of Alcohol and Drug Abuse Patient Records regulations: The Federal rules restrict any use of the information to criminally investigate or prosecute any alcohol or drug abuse patient.[facility] HospitalIn the event this information is protected by the Federal Confidentiality of Alcohol and Drug Abuse Patient Records regulations: The Federal rules restrict any use of the information to criminally investigate or prosecute any alcohol or drug abuse patient.[facility] HospitalIn the event this information is protected by the Federal Confidentiality of Alcohol and Drug Abuse Patient Records regulations: The Federal rules restrict any use of the information to criminally investigate or prosecute any alcohol or drug abuse patient.[facility] HospitalIn the event this information is protected by the Federal Confidentiality of Alcohol and Drug Abuse Patient Records regulations: The Federal rules restrict any use of the information to criminally investigate or prosecute any alcohol or drug abuse patient.[facility] Care Teams (unrecognized sec tion and content) Herbarium Worker Relationship Specialty Start Date End Date Paulo Scott MD [address] [place] [address] PCP - General 02/20/06 Herbarium Worker Relationship Specialty Start Date End Date Paulo Scott MD [address] [place] [address] PCP - General 02/20/06 Herbarium Worker Relationship Specialty Start Date End Date Paulo Scott MD [address] [place] [address] PCP - General 02/20/06 Herbarium Worker Relationship Specialty Start Date End Date Paulo Scott MD [address] [place] [address] PCP - General 02/20/06 Herbarium Worker Relationship Specialty Start Date End Date Paulo Scott MD [address] [place] [address] PCP - General 02/20/06 Team Status: Active Member Role Status Dates Dr. Paulo Scott MD Family Provider Active Dr. Paulo Scott MD Primary Care Provider Active Team Status: Inactive Member Role Status Dates Dr. Paulo Scott MD Primary Care Provider, Referr ing Provider Active Dr. Slim Park DO Attending Provider Active Team Status: Inactive Member Role Status Dates Dr. Paulo Scott MD Primary Care Provider Active Dr. Rajinder Alatorre DO Emergency Provider Active Herbarium Worker Relationship Specialty Start Date End Date Paulo Scott MD [address] [place] [address] PCP - General 02/20/06 Team Status: Inactive Member Role Status Dates Dr. Paulo Scott MD Primary Care Provider Active Dr. Rajinder Alatorre DO Attending Provider, Emergency Provider Active Team Status: Active Member Role Status Dates Dr. Paulo Scott MD Primary Care Provider Active Dr. Ellie Mullins DO Emergency Provider Active Dr. Yuridia Bernabe MD Admit Provider, Attending Provider Active Team Status: Active Member Role Status Dates Dr. Paulo Scott MD Primary Care Provider Active Dr. Ellie Mullins DO Emergency Provider Active Dr. Yuridia Bernabe MD Admit Provider, Atte nding Provider, Other Provider Active Team Status: Active Member Role Status Dates Dr. Paulo Scott MD Primary Care Provider Active Dr. Ellie Mullins , DO Emergency Provider Active Dr. Yuridia Bernabe MD Admit Provider, Other Provider Act ted Dr. Shelia Campos , DO Attending Provider, Other Provide r Active Team Status: Inactive Member Role Status Dates Dr. Paulo Scott MD Primary Care Provider Active Dr. Ellie Mullins , DO Emergency Provider Active Dr. Yuridia Bernabe MD Admit Provider, Other Provider Act ted Dr. Shelia Campos , DO Attending Provider Active Herbarium Worker Relationship Specialty Start Date End Date Paulo Scott MD [address] [facility] [address] PCP - General 02/20/06 Herbarium Worker Relationship Specialty Start Date End Date Paulo Scott MD [address] [place] [address] [place] [address] PCP - General 02/20/06 Herbarium Worker Relationship Specialty Start Date End Date Paulo Scott MD [facility] [place] [address] PCP - General 02/20/06 Herbarium Worker Relationship Specialty Start Date End Date Paulo Scott MD [facility] [place] [address] PCP - General 02/20/06 Herbarium Worker Relationship Specialty Start Date End Date Paulo Scott MD [facility] [place] [address] PCP - General 02/20/06 Herbarium Worker Relationship Specialty Start Date End Date Paulo Scott MD [address] [place] [address] [place] [address] PCP - General 02/20/06 Herbarium Worker Relationship Specialty Start Date End Date Paulo Scott MD [address] [place] [address] [place] [address] PCP - General 02/20/06 Herbarium Worker Relationship Specialty Start Date End Date Paulo Scott MD [address] [place] [address] PCP - General 02/20/06 Team Status: Inactive Member Role Status Dates Dr. Paulo Scott MD Primary Care Provider, Referr ing Provider Active Suzie Lewis CORPORATE CONTROLLER, CORPORATE CONTROLLER-C Attending Provider Active Team Status: Inactive Member Role Status Dates Dr. Paulo Scott MD Primary Care Provider, Referr ing Provider Active Gina Mary PA, PA Attending Provider Active Team Status: Inactive Member Role Status Dates Dr. Paulo Scott MD Primary Care Provider, Referr ing Provider Active Dr. Raul Casper DO Attending Provider Active Team Status: Inactive Member Role Status Dates Dr. Paulo Scott MD Primary Care Provider Active Dr. Paul Lara MD Attending Provider, Emergency Pro vider Active Team Status: Inactive Member Role Status Dates Dr. Paulo Scott MD Primary Care Provider Active Dr. Raul Casper DO Attending Provider, Referring Provider Active Team Status: Active Member Role Status Dates Dr. Pualo Scott MD Primary Care Provider Active Dr. Raul Casper DO Attending Provider, Referring Provider Active Herbarium Worker Relationship Specialty Start Date End Date Paulo Scott MD [address] [place] [address] PCP - General 02/20/06 Herbarium Worker Relationship Specialty Start Date End Date Paulo Scott MD [address] [place], [place] [id number] PCP - General 02/20/06 Herbarium Worker Relationship Specialty Start Date End Date Paulo Scott MD [address] [place] [address] PCP - General 02/20/06 Herbarium Worker Relationship Specialty Start Date End Date Paulo Scott MD [address] [place], [place] [address] PCP - General 02/20/06 Herbarium Worker Relationship Specialty Start Date End Date Paulo Scott MD [address] [place], [place] [address] PCP - General 02/20/06 Team Status: Inactive Member Role Status Dates Dr. Paulo Scott MD Primary Care Provider, Referr ing Provider Active Ellen Estrella CORPORATE CONTROLLER, CORPORATE CONTROLLER-C Attending Provider Active Team Status: Active Member Role Status Dates Dr. Paulo Scott MD Primary Care Provider Active Dr. Raul Casper DO Attending Provid er, Referring Provider, Other Provider Active Team Status: Inactive Member Role Status Dates Dr. Paulo Scott MD Primary Care Provider Active Dr. Stew Garza DO Emergency Provider Active Herbarium Worker Relationship Specialty Start Date End Date Paulo Scott MD [address] [place], [place] [address] PCP - General 02/20/06 Herbarium Worker Relationship Specialty Start Date End Date Paulo Scott MD [address] [place], [place] [address] PCP - General 02/20/06 Herbarium Worker Relationship Specialty Start Date End Date Paulo Scott MD [address] [place], [place] [address] PCP - General 02/20/06 Herbarium Worker Relationship Specialty Start Date End Date Paulo Scott MD [address] [place], [place] [address] PCP - General 02/20/06 Herbarium Worker Relationship Specialty Start Date End Date Paulo Scott MD [address] [place] [address] PCP - General 02/20/06 Herbarium Worker Relationship Specialty Start Date End Date Paulo Scott MD [address] [place] [address] PCP - General 02/20/06 Herbarium Worker Relationship Specialty Start Date End Date Paulo Scott MD [address] [place] [address] PCP - General 02/20/06 Herbarium Worker Relationship Specialty Start Date End Date Paulo Scott MD [address] [place] [address] PCP - General 02/20/06 Herbarium Worker Relationship Specialty Start Date End Date Paulo Scott MD [address] [place] [address] PCP - General 02/20/06 Herbarium Worker Relationship Specialty Start Date End Date Paulo Scott MD [address] [place] [address] PCP - General 02/20/06 Herbarium Worker Relationship Specialty Start Date End Date Paulo Scott MD [address] [place] [address] PCP - General 02/20/06 Herbarium Worker Relationship Specialty Start Date End Date Paulo Scott MD [address] [place] [address] PCP - General 02/20/06 Herbarium Worker Relationship Specialty Start Date End Date Paulo Scott MD [address] [place] [address] PCP - General 02/20/06 Herbarium Worker Relationship Specialty Start Date End Date Paulo Scott MD [address] [place] [address] PCP - General 02/20/06 Herbarium Worker Relationship Specialty Start Date End Date Paulo Scott MD [address] [place] [address] PCP - General 02/20/06 Juan Rodriguez, MOLDING MACHINE SETTER.AIRPLANE DISPATCHER [address] [place] [address] [employer] [facility] 02/23/24 Norman Garcia MOLDING MACHINE SETTER.RESIDENTIAL DIRECTOR [address] [place] [address] [employer] Internal [facility] 02/23/24 Herbarium Worker Relationship Specialty Start Date End Date Paulo Scott MD [address] [place] [address] PCP - General 02/20/06 Juan Rodriguez, MOLDING MACHINE SETTER.AIRPLANE DISPATCHER [address] [place] [address] [facility] 02/23/24 Norman Garcia MOLDING MACHINE SETTER.RESIDENTIAL DIRECTOR [address] [place] [address] [facility] 02/23/24 Herbarium Worker Relationship Specialty Start Date End Date Paulo Scott MD [address] [facility] [place], [place] [address] PCP - General 02/20/06 Juan Rodriguez, MOLDING MACHINE SETTER.AIRPLANE DISPATCHER [address] [facility] [place], [place] [address] [employer] Internal Medicine 02/23/24 Norman Garcia, MOLDING MACHINE SETTER.RESIDENTIAL DIRECTOR [address] [facility] [place], [place] [address] [employer] Internal Medicine 02/23/24 Team Status: Active Member Role Status Dates Dr. Paulo Scott MD Primary Care Provider Active Team Status: Inactive Member Role Status Dates Dr. Paulo Scott MD Primary Care Provider Active Start: February 20, 2024 End: February 20, 2024 Dr. Paulo Scott MD Referring Provider Active Start: February 20, 2024 End: February 20, 2024 Dr. Raul Casper DO Attending Provider Active Start: February 20, 2024 End: February 20, 2024 Team Status: Inactive Member Role Status Dates Dr. Paulo Scott MD Primary Care Provider Active Start: March 12, 2024 End: March 12, 2024 Dr. Paulo Scott MD Referring Provider Active Start: March 12, 2024 End: March 12, 2024 Dr. Callum Trimble DO Attending Provider Active Start: March 12, 2024 End: March 12, 2024 Team Status: Inactive Member Role Status Dates Dr. Paulo Scott MD Primary Care Provider Active Start: March 12, 2024 End: March 12, 2024 Dr. Julian Paul MD Attending Provider Active S tart: March 12, 2024 End: March 12, 2024 Team Status: Inactive Member Role Status Dates Dr. Paulo Scott MD Primary Care Provider Active Start: April 02, 2024 End: April 02, 2024 Dr. Paulo Scott MD Referring Provider Active Start: April 02, 2024 End: April 02, 2024 Dr. Callum Trimble DO Attending Provider Active Start: April 02, 2024 End: April 02, 2024 Team Status: Inactive Member Role Status Dates Dr. Paulo Scott MD Primary Care Provider Active Start: April 08, 2024 End: April 08, 2024 Dr. Raul Casper DO Attending Provider Active Start: April 08, 2024 End: April 08, 2024 Dr. Raul Casper DO Referring Provider Active Start: April 08, 2024 End: April 08, 2024 Team Status: Inactive Member Role Status Dates Dr. Paulo Scott MD Primary Care Provider Active Start: April 09, 2024 End: April 09, 2024 Dr. Paulo Scott MD Referring Provider Active Start: April 09, 2024 End: April 09, 2024 Dr. Callum Trimble DO Attending Provider Active Start: April 09, 2024 End: April 09, 2024 Team Status: Inactive Member Role Status Dates Dr. Paulo Scott MD Primary Care Provider Active Start: April 16, 2024 End: April 16, 2024 Dr. Paulo Scott MD Referring Provider Active Start: April 16, 2024 End: April 16, 2024 Dr. Callum Trimble DO Attending Provider Active Start: April 16, 2024 End: April 16, 2024 Team Status: Inactive Member Role Status Dates Dr. Paulo Scott MD Primary Care Provider Active Start: May 26, 2024 End: May 26, 2024 Dr. Crystal Paz MD Attending Provider Active Start: May 26, 2024 End: May 26, 2024 Dr. Crystal Paz MD Referring Provider Active Start: May 26, 2024 End: May 26, 2024 INFORMATION SOURCE (unrecogn ized section and content) DATE CREATED AUTHOR 05/25/2024 [facility] DATE CREATED AUTHOR AUTHOR'S MARTHA KEITA 06/20/2024 [facility] FOR RECORDS PERTAINING TO PATIENTS WHO ARE [...] BE BASED ON THE PRIMARY CLINICAL RECORDS. [employer] [facility]. provides no warranty or guarantee of the accuracy or completeness of information in this document.
[2024-08-22] MEDS: Ondansetron ODT 4 MG Tablet 8 MG PO (16:16)
[2024-08-22] MEDS: Morphine 4 MG/ML Syringe IM (16:17)
[2024-08-22] MEDS: Orphenadrine 60 MG/2 ML Ampul IM (16:18)
[2024-08-22] MEDS: Ketorolac 15 MG/ML Vial IM (16:19)
== END 2024-08-22 17:09 | disposition home or self-care (01) ==
PROVIDERS: Emergency Provider Emergency Medicine; PCP Internal Medicine; Referring Provider Emergency Medicine; Visit Provider Emergency Medicine
DX: R53.1 Weakness (principal); M48.061 Spinal stenosis, lumbar region without neurogenic claudication; I10 Essential (primary) hypertension; M51.360 Other intervertebral disc degeneration, lumbar region with discogenic back pain only; I25.10 Atherosclerotic heart disease of native coronary artery without angina pectoris; G89.29 Other chronic pain; Z86.73 Personal history of transient ischemic attack (TIA), and cerebral infarction without residual deficits; F41.9 Anxiety disorder, unspecified; Z79.899 Other long term (current) drug therapy; Z79.82 Long term (current) use of aspirin; E03.9 Hypothyroidism, unspecified; Z79.890 Hormone replacement therapy; K21.9 Gastro-esophageal reflux disease without esophagitis; Z90.49 Acquired absence of other specified parts of digestive tract; Z98.51 Tubal ligation status; Z95.828 Presence of other vascular implants and grafts
CPT/HCPCS: 96372; 99282

== ENCOUNTER 2024-12-05 12:28 | Emergency (ER) | payer MEDICARE, BC, SELFPAY ==
[2024-12-05 12:29] VITALS: BP 142/86; PULSE 71; RESP 16; TEMP 36.6; O2SAT 98; BMI 36.5
--- NOTE | 2024-12-05 13:02 | RAD_ITS ---
PROCEDURE: CHEST PA AND LATERAL 12/05/2024 REASON FOR EXAM: LIGHTHEADED TECHNIQUE: Procedure Code: RADCXR Modality: DX Procedure: CHEST PA AND LATERAL COMPARISON: Chest x-ray 12/04/2019. FINDINGS: Hardware: Monitor electrodes overlie the chest. Heart: No cardiomegaly. Mediastinum: Unremarkable. Lungs: Clear. No pleural effusion or pneumothorax. Bones: No acute bony abnormalities. RAD/Chest PA and Lateral IMPRESSION: No acute cardiopulmonary abnormalities. Reading Location: [id number]
--- NOTE | 2024-12-05 13:02 | EKG12_ITS ---
Test Reason : GENERAL/DIZZINESS Blood Pressure : */* mmHG Vent. Rate : 82 BPM Atrial Rate : 82 BPM P-R Int : 198 ms QRS Dur : 50 ms QT Int : 370 ms P-R-T Axes : 52 -87 76 degrees QTcB Int : 432 ms Critical Test Result: STEMI Sinus rhythm with Fusion complexes Left axis deviation Low voltage QRS Septal infarct Possible Lateral infarct Inferior injury pattern Confirmed by DOUG VARGAS, ESSENCE ([id number]), managing editor ASHLEY HOUSE ([id number]) on 12/06/2024 7:57:25 AM Referred By: Confirmed By: ESSENCE CAMACHO MD
--- NOTE | 2024-12-05 13:03 | EX.ED.DYSGE1 ---
HPI <Dr. Shanika Galicia MD - Last Filed: 12/07/24 00:12> History of Present Illness Chief Complaint: Dizziness Narrative Narrative: Patient is a 74-year-old female presenting to the emergency department for an episode of lightheadedness and nausea. Patient has a past medical history of nonobstructive coronary artery disease, peripheral vascular disease, hypertension, DVT, Sarmiento's esophagus, hypothyroidism. Patient states that she did eat breakfast this morning. She was at work at [employer] when she got lightheaded and nauseous and sat down. States her legs felt weak. She did not lose consciousness. EMS was called. She was able to ambulate to the cot. She denies any headache, vision changes, speech difficulty, focal numbness or weakness. Denies recent fever or chills. Denies chest pain, SOB, abdominal pain, vomiting, diarrhea. [facility] <Dr. Shanika Galicia MD - Last Filed: 12/07/24 00:12> [facility] Medical History Loss of hearing Wears glasses Wears partial dentures Post-menopausal Anxiety Thyroid disease Ambulates with cane Urinary incontinence Difficulty swallowing Gastric reflux Non-smoker History of echocardiogram History of stress test Seasonal allergies History of edema Cardiology follow-up encounter History of cataract Ganglion cyst Atherosclerotic heart disease of [place] coronary artery without angina pectoris Cholelithiasis with chronic cholecystitis Cholecystitis Pancreatitis, gallstone Gallstones Pancreatitis Dysmetabolic syndrome X DVT (deep venous thrombosis) Barretts esophagus Hypothyroidism Fibromyalgia History of DVT (deep vein thrombosis) Essential hypertension Segmental and somatic dysfunction of pelvic region Segmental and somatic dysfunction of lumbar region Segmental and somatic dysfunction of thoracic region DDD (degenerative disc disease), lumbar History of atrial dilatation PAD (peripheral artery disease) TIA (transient ischemic attack) Osteoarthritis GERD (gastroesophageal reflux disease) IBS (irritable bowel syndrome) Cataracts, bilateral Arthritis Anemia Environmental allergies Home Medications ?Medication ?Instructions ?Recorded ?Last Taken ?Type gabapentin 100 mg capsule 300 mg PO QHS 01/11/14 05/05/22 History diazepam 5 mg tablet 5 mg PO QHS PRN anxiety 01/13/19 05/05/22 History aspirin 81 mg tablet,delayed 81 mg PO DAILY@0800 02/09/19 05/05/22 History release multivitamin 1 tab PO DAILY 04/08/19 05/05/22 History cholecalciferol (vitamin D3) 125 125 mcg PO DAILY 10/11/19 05/05/22 History mcg (5,000 unit) capsule inhalational spacing device #1 ea 10/11/19 Unknown Rx (BreatheRite MDI Spacer) acetaminophen 500 mg capsule 500 mg PO Q6H PRN Pain 05/05/22 Unknown History levothyroxine 88 mcg tablet 88 mcg PO DAILY 07/26/22 04/23/23 History ipratropium 0.5 mg-albuterol 3 mg 3 ml inhalation Q4H PRN PRN SOB 10/02/22 Unknown Rx (2.5 mg base)/3 mL nebulization &/OR WHEEZING #180 mL soln cranberry fruit concentrate 250 mg 250 mg PO DAILY 01/31/23 Unknown History chewable tablet (Azo Cranberry) spironolactone 25 mg tablet 25 mg PO 1700 PRN 08/15/23 Unknown History budesonide 0.5 mg/2 mL suspension 0.5 mg (2 mL) inhalation Q12H #120 10/15/23 Unknown Rx for nebulization mL benzonatate 100 mg capsule 100 - 200 mg PO TID PRN cough 03/12/24 Unknown History amlodipine 5 mg tablet 5 mg PO DAILY 10/15/24 Unknown History Allergy/AdvReac Type Severity Reaction Status Date / Time latex Allergy Unknown PT UNSURE Verified 12/05/24 12:29 OF REACTION adhesive Allergy Unknown Verified 12/05/24 12:29 benzocaine (From Cetacaine) Allergy Unknown Verified 12/05/24 12:29 butamben (From Cetacaine) Allergy Vomiting Verified 12/05/24 12:29 cortisone (Cortisone) Allergy Unknown Verified 12/05/24 12:29 dipyridamole (From Aggrenox) Allergy Unknown Verified 12/05/24 12:29 lansoprazole (From Prevacid) Allergy Unknown Verified 12/05/24 12:29 meclizine Allergy Unknown Verified 12/05/24 12:29 methylprednisolone acetate Allergy Angioedema Verified 12/05/24 12:29 (From Depo-Medrol) metoprolol Allergy Unknown Verified 12/05/24 12:29 omeprazole (From Prilosec) Allergy Unknown Verified 12/05/24 12:29 omeprazole magnesium (From Allergy Unknown Verified 12/05/24 12:29 Prilosec) oxybutynin chloride (From Allergy Unknown Verified 12/05/24 12:29 Ditropan) povidone-iodine (From Allergy Unknown Verified 12/05/24 12:29 Betadine) sulfamethoxazole (From Allergy Unknown Verified 12/05/24 12:29 Bactrim) tegaserod (From Zelnorm) Allergy Hives Verified 12/05/24 12:29 tegaserod hydrogen maleate Allergy Unknown Verified 12/05/24 12:29 (From Zelnorm) tetracaine (From Cetacaine) Allergy Unknown Verified 12/05/24 12:29 tolterodine tartrate (From Allergy Unknown Verified 12/05/24 12:29 Detrol) trimethoprim (From Bactrim) Allergy Unknown Verified 12/05/24 12:29 lisinopril AdvReac Intermediate Angioedema Verified 12/05/24 12:29 adhesive tape AdvReac Rash Verified 12/05/24 12:29 codeine AdvReac Unknown Verified 12/05/24 12:29 mirabegron (From Myrbetriq) AdvReac Other Verified 12/05/24 12:29 tizanidine AdvReac Other Verified 12/05/24 12:29 vaccine adjuvant system, AdvReac Rash Verified 12/05/24 12:29 [id number] liposomal (From Shingrix (PF)) varicella-zoster virus AdvReac Rash Verified 12/05/24 12:29 glycoprotein E, recombinant (From Shingrix (PF)) Family History Mother Cancer Celiac disease Presence of permanent cardiac pacemaker Father Cancer Sister Hypertension Other Colon cancer Myocardial infarction Surgical History History of back surgery History of cholecystectomy Hx of dilation and curettage Hx of cardiac cath History of Robbie fundoplication S/P gastroplasty History of laparotomy Hx of tubal ligation hx of filter removal Hx of superior vena cava filter placement Hx of local excision of skin lesion History of esophagogastroduodenoscopy (EGD) Hx of colonoscopy H/O hernia repair History of tonsillectomy Social History housing: house Smoking Status: Never smoker alcohol intake: never substance use type: does not use caffeine: Yes Type: coffee Number of servings: 2 what type of physical activity do you participate in: walking frequency: 3-4 times per week ROS <Dr. Shanika Galicia MD - Last Filed: 12/07/24 00:12> ROS ED ROS Narrative see HPI EXAM <Dr. Shanika Galicia MD - Last Filed: 12/07/24 00:12> Physical Exam Narrative Exam Narrative: Vital signs: Reviewed General: Alert and orientedx3. No acute distress HEENT: Head is normocephalic and atraumatic, sinuses nontender, pupils equal round and reactive. Nares are patent. Oropharynx and throat exams normal. Neck: Supple without lymphadenopathy nontender Cardiovascular: Regular rate and rhythm, no murmurs. No rubs or gallops. Normal S1 and S2 Respiratory: Clear to auscultation bilaterally. No wheezes, rales, rhonchi Abdominal: Soft and nontender. Normal bowel sounds. No guarding or rebound. Nonsurgical abdomen Extremities: No tenderness. No bruising. Normal range of motion. Normal sensation. Skin: No rash or redness. Neuro: able to ambulate without difficulty. The rest of the physical exam is unremarkable Const Vital Signs: 12/05/24 12:29 12/05/24 13:11 12/05/24 13:29 Temperature 97.8 F Temperature Source Oral Pulse Rate 71 79 Pulse Rate [Lying] 80 Pulse Rate [Sitting (for 1 minute prior to obtaining)] 82 Pulse Rate [Standing (for 1 minute prior to obtaining)] 90 Respiratory Rate 16 Blood Pressure 142/86 H 132/83 H Blood Pressure [Lying] 132/68 H Blood Pressure [Sitting (for 1 minute prior to obtaining)] 143/83 H Blood Pressure [Standing (for 1 minute prior to obtaining)] 140/80 H Blood Pressure Mean 104 99 Blood Pressure Mean [Lying] 89 Blood Pressure Mean [Sitting (for 1 minute prior to obtaining)] 103 Blood Pressure Mean [Standing (for 1 minute prior to obtaining)] 100 Pulse Ox 98 100 Oxygen Delivery Method Room Air 12/05/24 14:00 12/05/24 15:00 Temperature Temperature Source Pulse Rate 75 82 Pulse Rate [Lying] Pulse Rate [Sitting (for 1 minute prior to obtaining)] Pulse Rate [Standing (for 1 minute prior to obtaining)] Respiratory Rate 16 Blood Pressure 149/71 H 128/81 H Blood Pressure [Lying] Blood Pressure [Sitting (for 1 minute prior to obtaining)] Blood Pressure [Standing (for 1 minute prior to obtaining)] Blood Pressure Mean 97 96 Blood Pressure Mean [Lying] Blood Pressure Mean [Sitting (for 1 minute prior to obtaining)] Blood Pressure Mean [Standing (for 1 minute prior to obtaining)] Pulse Ox 98 96 Oxygen Delivery Method NIHSS NIHSS Initial: 1a Level of Consciousness: 0 1b LOC Questions (Score 2 if aphasic/stupor): 0 1c LOC Commands (Only score 1st attempt): 0 2 Best Gaze (If aphasic, use reflexive mvmts.): 0 3 Visual: 0 4 Facial Palsy: 0 5 Motor Arm Right (UN = amputation/fusion): 0 5 Motor Arm Left: 0 6 Motor Leg Right: 0 6 Motor Leg Left: 0 7 Limb ataxia (Only + if out of proportion): 0 8 Sensory (Aphasia/stupor=0 or 1, coma=2): 0 9 Best Language: 0 10 Dysarthria (mute, coma=2, intubated=UN): 0 11 Extinction and Inattention (only scored if +): 0 Total Score: 0 <Dr. Luis Page MD - Last Filed: 12/05/24 16:14> Physical Exam Const Vital Signs: 12/05/24 12:29 12/05/24 13:11 12/05/24 13:29 Temperature 97.8 F Temperature Source Oral Pulse Rate 71 79 Pulse Rate [Lying] 80 Pulse Rate [Sitting (for 1 minute prior to obtaining)] 82 Pulse Rate [Standing (for 1 minute prior to obtaining)] 90 Respiratory Rate 16 Blood Pressure 142/86 H 132/83 H Blood Pressure [Lying] 132/68 H Blood Pressure [Sitting (for 1 minute prior to obtaining)] 143/83 H Blood Pressure [Standing (for 1 minute prior to obtaining)] 140/80 H Blood Pressure Mean 104 99 Blood Pressure Mean [Lying] 89 Blood Pressure Mean [Sitting (for 1 minute prior to obtaining)] 103 Blood Pressure Mean [Standing (for 1 minute prior to obtaining)] 100 Pulse Ox 98 100 Oxygen Delivery Method Room Air 12/05/24 14:00 12/05/24 15:00 Temperature Temperature Source Pulse Rate 75 82 Pulse Rate [Lying] Pulse Rate [Sitting (for 1 minute prior to obtaining)] Pulse Rate [Standing (for 1 minute prior to obtaining)] Respiratory Rate 16 Blood Pressure 149/71 H 128/81 H Blood Pressure [Lying] Blood Pressure [Sitting (for 1 minute prior to obtaining)] Blood Pressure [Standing (for 1 minute prior to obtaining)] Blood Pressure Mean 97 96 Blood Pressure Mean [Lying] Blood Pressure Mean [Sitting (for 1 minute prior to obtaining)] Blood Pressure Mean [Standing (for 1 minute prior to obtaining)] Pulse Ox 98 96 Oxygen Delivery Method NIHSS NIHSS Initial: Total Score: 0 MDM <Dr. Shanika Galicia MD - Last Filed: 12/07/24 00:12> [facility] Narrative Medical decision making narrative: Patient is a 74-year-old female presenting to the emergency department for an episode of lightheadedness, nausea and generalized weakness. Patient was seen and examined. Vitals are stable. Patient resting bed comfortably no acute distress. Fluid bolus started. Differential includes but is not limited to: Dehydration, electrolyte disturbance, UTI, pneumonia, ACS EKG showed normal sinus rhythm, however very poor baseline and difficult to interpret. There are no ischemic changes. There is no dysrhythmia noted. CBC with a mild leukocytosis of 13.2 and a normal hemoglobin. Urinalysis with small amount of leukocyte esterase and 1+ bacteria however no WBCs or nitrites. Will send for culture but do not think this is a UTI. Initial troponin mildly elevated at 23, will continue to reflex. Chest x-ray reviewed by myself, no abnormalities noted. Radiology read with no acute radiographic abnormalities. At time of signout, BMP and second troponin pending. Clinical impression: Lightheaded Nausea Generalized weakness History & Record Review Discussion w/independent historian: Patient and Family Lab Data Attestation: I reviewed the patient's lab results. Labs: Laboratory Results - last 24 hr 12/05/24 12/05/24 12/05/24 12:41 14:36 15:06 WBC 13.2 H RBC 4.67 Hgb 14.5 Hct 43.9 MCV 94.0 MCH 31.0 MCHC 33.0 RDW Std Deviation 47.5 H RDW Coeff of Ronnie 13.7 Plt Count 276 MPV 10.6 Immature Gran % (Auto) 0.400 Neut % (Auto) 76.4 H Lymph % (Auto) 13.0 L [place] % (Auto) 8.0 Eos % (Auto) 1.4 Baso % (Auto) 0.8 Absolute Neuts (auto) 10.1 H Absolute Lymphs (auto) 1.71 Nucleated RBC % 0 Sodium 136 Potassium 4.3 Chloride 99 Carbon Dioxide 21.8 Anion Gap 15 BUN 15 Creatinine 0.89 Estim Creat Clear Calc 62.56 Est GFR (MDRD) Non-Af 68 BUN/Creatinine Ratio 17.3 Glucose 258 H Calcium 9.6 Troponin T High Sens 23 H Troponin T Hi Sens 2 Hr 17 H Urine Color Yellow Urine Clarity Clear Urine pH 7.0 Ur Specific [place] 1.010 Urine Protein Negative Urine Glucose (UA) 1000 H Urine Ketones Negative Urine Occult Blood Negative Urine Nitrite Negative Urine Bilirubin Negative Urine Urobilinogen Normal Ur Leukocyte Esterase 25 H Urine RBC 0 SEEN Urine WBC 0-5 SEEN Ur Squamous Epith Cells 0-5 SEEN Urine Bacteria 1+ Urine Mucus 0 SEEN Radiography Chest X-Ray - ED: 2 View, Read by ED Physician, Normal, No Acute Disease and No Infiltrates Diagnostic Testing: Clinical Impression(s) from Imaging Studies Chest X-Ray 12/05/24 13:02 IMPRESSION: No acute cardiopulmonary abnormalities. Reading Location: [id number] <Dr. Luis Page MD - Last Filed: 12/05/24 16:14> [facility] Lab Data Lab results narrative: White count is slightly elevated. There is a slight shift. H&H and indices are normal. First troponin was slightly elevated at 23. Second troponin is 17 with a delta of -6. Urine reveals bacteria without pyuria. Blood sugar is elevated to 58 with a normal CO2 anion gap. Labs: Laboratory Results - last 24 hr 12/05/24 12/05/24 12/05/24 12:41 14:36 15:06 WBC 13.2 H RBC 4.67 Hgb 14.5 Hct 43.9 MCV 94.0 MCH 31.0 MCHC 33.0 RDW Std Deviation 47.5 H RDW Coeff of Ronnie 13.7 Plt Count 276 MPV 10.6 Immature Gran % (Auto) 0.400 Neut % (Auto) 76.4 H Lymph % (Auto) 13.0 L [place] % (Auto) 8.0 Eos % (Auto) 1.4 Baso % (Auto) 0.8 Absolute Neuts (auto) 10.1 H Absolute Lymphs (auto) 1.71 Nucleated RBC % 0 Sodium 136 Potassium 4.3 Chloride 99 Carbon Dioxide 21.8 Anion Gap 15 BUN 15 Creatinine 0.89 Estim Creat Clear Calc 62.56 Est GFR (MDRD) Non-Af 68 BUN/Creatinine Ratio 17.3 Glucose 258 H Calcium 9.6 Troponin T High Sens 23 H Troponin T Hi Sens 2 Hr 17 H Urine Color Yellow Urine Clarity Clear Urine pH 7.0 Ur Specific [place] 1.010 Urine Protein Negative Urine Glucose (UA) 1000 H Urine Ketones Negative Urine Occult Blood Negative Urine Nitrite Negative Urine Bilirubin Negative Urine Urobilinogen Normal Ur Leukocyte Esterase 25 H Urine RBC 0 SEEN Urine WBC 0-5 SEEN Ur Squamous Epith Cells 0-5 SEEN Urine Bacteria 1+ Urine Mucus 0 SEEN Radiography Diagnostic Testing: Clinical Impression(s) from Imaging Studies Chest X-Ray 12/05/24 13:02 IMPRESSION: No acute cardiopulmonary abnormalities. Reading Location: [facility] Treatment and Re-Evaluation :: Patient was turned over to md at change of shift. Since patient's second troponin is lower and delta is -6 she was discharged to home. Based on her history and physical patient had a vasovagal episode. Discharge Plan Triage Chief Complaint: Dizziness ED Provider: Shanika Galicia Dx/Rx/DC Orders Clinical Impression: Light-headedness, Nausea, Generalized muscle weakness, Vasovagal near syncope, Elevated troponin Instructions: ED Near-Fainting, Uncertain Cause Prescriptions: No Action multivitamin Tablet 1 tab PO DAILY diazepam 5 mg tablet 5 mg PO QHS PRN (Reason: anxiety) (DME) BreatheRite MDI Spacer Spacer See Rx Instructions .ROUTE .MEDSUPPLY Qty: 1 0RF Rx Instructions: As directed cholecalciferol (vitamin D3) 125 mcg (5,000 unit) capsule 125 mcg PO DAILY ipratropium-albuterol 0.5 mg-3 mg(2.5 mg base)/3 mL solution for nebulization 3 ml inhalation Q4H PRN PRN (Reason: SOB &/OR WHEEZING) Qty: 180 11RF levothyroxine 88 mcg tablet 88 mcg PO DAILY amlodipine 5 mg tablet 5 mg PO DAILY Azo Cranberry 250 mg tablet,chewable 250 mg PO DAILY spironolactone 25 mg tablet 25 mg PO 1700 PRN budesonide 0.5 mg/2 mL suspension for nebulization 0.5 mg inhalation Q12H Qty: 120 11RF benzonatate 100 mg capsule 100 - 200 mg PO TID PRN (Reason: cough) gabapentin 100 MG capsule 300 mg PO QHS aspirin 81 MG tablet 81 mg PO DAILY@0800 acetaminophen 500 mg Capsule 500 mg PO Q6H PRN (Reason: Pain) Primary Care Provider: Miryam Riojas Referrals: Miryam Riojas MD [Primary Care Provider, Internal Medicine] - As soon as possible Activity Restrictions/Additional Instructions: Your urine was sent for culture, follow up on these results. Drink lots of fluids at home. Your evaluation in the Emergency Department did not reveal any acute reason for admission. However, I want to emphasize that you may be early in the course of a disease process or illness even if it is not present. For this reason you should follow-up within 24 hours for reevaluation with either your primary care physician or if necessary back here in the Emergency Department. You should return to the Emergency Department immediately if your symptoms worsen or new symptoms develop. Print Language: Greek Disposition Disposition: Home, Self Care Discharge Date/Time: 12/05/24 16:27
[2024-12-05 13:11] VITALS: BP 132/68; BP 140/80; BP 143/83; PULSE 80; PULSE 82; PULSE 90
[2024-12-05 13:12] LABS: Hematocrit 43.9 % (37-47); Hemoglobin 14.5 g/dL (12.0-15.0); Immature Granulocytes Count 0.050 X10^3/uL (0.0-0.0); Mean Corp Hgb Conc 33.0 g/dL (32-36); Mean Corpuscular Volume 94.0 fL (81-99); Mean Platelet Vol. 10.6 fl (6.2-12.0); NRBC Flagged by Analyzer 0 % (0-5); Platelet Count 276 K/mm3 (150-450); RBC Distribution Width CV 13.7 % (11.6-14.6); RBC Distribution Width SD 47.5 fl (35.1-43.9); Red Blood Count 4.67 M/mm3 (4.2-5.4); White Blood Count 13.2 K/mm3 (4.4-11.0)
[2024-12-05] MEDS: 0.9% Normal Saline (1000mL) 1,000 ML 1000 ML IV (13:17)
--- OUTSIDE RECORDS SUMMARY | 2024-12-05 13:17 | XMS RPT_ITS | CCD ---
Author Organization [facility] Care Team Providers Care Ui Developer With [employer] J[employer] Name Role Phone No director outpatient services, Md Unavailable Unavailab le No director outpatient services, Md Primary Care Provider Sunni ronakble Zeenat Sweeney CGC Unavailable Unavailable Quoc Diaz MD Unavailable Paulo Scott MD Primary Care Provider Dr. Paulo Scott Primary Care Provider Dr. Paulo Scott Referring Provider Debbie LASER BEAM MACHINE OPERATOR, LASER BEAM MACHINE OPERATOR-C Suzie Attending Provider Paulo Scott MD Primary [...] Scott Referring Provider LEONEL Ahumada Attending Provider Dr. Raul Casper Attending Provider [phone] Debbie LASER BEAM MACHINE OPERATOR, VERA Larsen Attending Provider Dr. Paulo Scott Primary Care Provider Dr. Paulo Scott Referring Provider Sameer LASER BEAM MACHINE OPERATOR, LASER BEAM MACHINE OPERATOR-C Ellen Attending Provider Dr. Raul Casper Attending Provider [phone] Dr. Slim Park Attending Provider Pennie, Dr. Carter Referring Provider [phone] Dr. Raul Casper Other Provider [phone] Paulo Scott Primary Care Provider Dr. Paulo Scott Referring Provider Dr. Raul Casper Attending Provider [phone] Dr. Slim Park Attending Provider Dr. Raul Casper Referring Provider [phone] Dr. Raul Casper Other Provider [phone] Paulo Scott MD Primary Care Provider Rodriguez ELECTRONIC CALIBRATION TECHNICIAN.JEWEL SORTER, Juan Unavailable Radha ELECTRONIC CALIBRATION TECHNICIAN.CHAINMAN, Norman Unavailable Radha ELECTRONIC CALIBRATION TECHNICIAN.CHAINMAN, Norman Unavailable Dr. Paulo Scott MD Primary Care Provider Dr. Paulo Scott MD Referring Provider Dr. Raul Casper DO Attending Provider Dr. Callum Trimble DO Attending Provider Dr. Julian Paul MD Attending Provider Dr. Raul Casper DO Referring Provider Dr. Crystal Paz MD Attending Provider Dr. Crystal Paz MD Referring Provider Shine VARGAS, Dr. Paulo Tony Primary Care Provider Shine VARGAS, Dr. Paulo Tony Referring Provider [phone] Dr. Callum Trimble DO Attending Provider Beverly VARGAS, Dr. Jordan Attending Provider Pennie RANDLE, Dr. Carter Attending Provider Vanessa VARGAS, Dr. Sotelo Referring Provider Vanessa VARGAS, Dr. Sotelo Emergency Provider Radha ELECTRONIC CALIBRATION TECHNICIAN.CHAINMAN, Norman Unavailable Rodriguez ELECTRONIC CALIBRATION TECHNICIAN.JEWEL SORTER, Juan Unavailable RADHA, NORMAN Attending Unavailable TALAMPAS, PAULO D Primary Care Unavailable TALAMPAS, PAULO D Referring Unavailable TALAMPAS, PAULO D Primary Care Unavailable RODRIGUEZ, JUAN Attending Unavailable TALAMPAS, PAULO D Primary Care Unavailable RADHA, NORMAN Attending Unavailable RODRIGUEZ, JUAN Referring Unavailable TALAMPAS, PAULO D Primary Care Unavailable RADHA, NORMAN Referring Unavailable TALAMPAS, PAULO D Primary Care Unavailable RODRIGUEZ, JUAN Attending Unavailable TALAMPAS, PAULO D Primary Care Unavailable TALAMPAS, PAULO D Referring Unavailable TALAMPAS, PAULO D Primary Care Unavailable Shine VARGAS, Dr. Paulo Tony Primary Care Provider Vanessa VARGAS, Dr. Sotelo Attending Provider Gina Ahumada Attending Provider Callum Trimble Attending Unavailable Talampas, Paulo D Referring Unavailable Talampas, Paulo D Primary Care Unavailable Callum Trimble Attending Unavailable Talampas, Paulo D Referring Unavailable Talampas, Paulo D Primary Care Unavailable Gina Ahumada Attending Unavail able Talampas, Paulo D Referring Unavailable Talampas, Paulo D Primary Care Unavailable Callum Trimble Attending Unavailable Talampas, Paulo D Referring Unavailable Talampas, Paulo D Primary Care Unavailable Callum rTimble Attending Unavailable Talampas, Paulo D Primary Care Unavailable Talampas, Paulo D Referring Unavailable Julian Paul Attending Unavailable Talampas, Paulo D Primary Care Unavailable BorruCallum molina Attending Unavailable Talampas, Paulo D Referring Unavailable Talampas, Paulo D Primary Care Unavailable Jeetruso, Callum Attending Unavailable Talampas, Paulo D Referring Unavailable Talampas, Paulo D Primary Care Unavailable JeetruCallum molina Attending Unavailable Talampas, Paulo D Referring Unavailable Talampas, Paulo D Primary Care Unavailable Julian Paul Attending Unavailable Talampas, Paulo D Primary Care Unavailable Borruso, Callum Attending Unavailable Talampas, Paulo D Referring Unavailable Talampas, Paulo D Primary Care Unavailable Friend, Raul Referring Unavailable Talampas, Paulo D Primary Care Unavailable Friend, Raul Attending Unavailable BasaliCrystal Attending Unavailable BasaliCrystal Referring Unavailable Talampas, Paulo D Primary Care Unavailable ReodicaRoque Attending Unavailable Talampas, Paulo D Primary Care Unavailable Deepak Mendez Attending Unavailable Deepak Mendez Referring Unavailable Talampas, Paulo D Primary Care Unavailable BorrusoCallum Attending Unavailable Talampas, Paulo D Referring Unavailable Talampas, Paulo D Primary Care Unavailable Talampas, Paulo D Referring Unavailable Talampas, Paulo D Primary Care Unavailable Friend, Raul Attending Unavailable Talampas, Paulo D Referring Unavailable Talampas, Paulo D Primary Care Unavailable Friend, Raul Attending Unavailable BorrusoCallum Attending Unavailable Talampas, Paulo D Referring Unavailable Talampas, Paulo D Primary Care Unavailable Allergies Allergy Classification Reported Allergen(s) Allergy Type Date of Onset Reaction(s) Facility (20 sources) Aspirin / Dipyridamole; Translations: [ASPIRIN-DIPYRIDAMOLE ] Drug Allergy 05-27-19 12 Other: See Comments [facility] (20 sources) Benzocaine / butamben / Tetracaine; Translations: [BUTAMBEN-TETRACAINE- BENZOCAINE] Drug Allergy 09-12-19 13 Other: See Comments [facility] Work Phone: (20 sources) Codeine; Translations: [CODEINE] Drug Allergy 03-07-20 06 Intolerance [facility] (20 sources) Cortisone; Translations: [CORTISONE] Drug Allergy 09-19-19 22 Shortness of Breath [facility] Work Phone: [phone] (20 sources) lansoprazole; Translations: [LANSOPRAZOLE] Drug Allergy 03-07-20 06 GI Upset [facility] (20 sources) Latex; Translations: [LATEX] Propensity to adverse reactions 11-04-19 10 Rash [facility] Work Phone: (20 sources) Meclizine; Translations: [MECLIZINE] Drug Allergy 03-07-20 06 Swelling [facility] (20 sources) methylPREDNISolone Drug Allergy 03-07-20 06 Swelling [facility] (20 sources) Metoprolol; Translations: [METOPROLOL] Drug Allergy 04-24-19 07 GI Upset [facility] Work Phone: (20 sources) mirabegron; Translations: [MIRABEGRON] Drug Allergy 12-27-19 15 Other: See Comments [facility] Work Phone: (20 sources) Omeprazole; Translations: [OMEPRAZOLE MAGNESIUM] Drug Allergy 09-19-19 22 Diarrhea [facility] Work Phone: (20 sources) oxybutynin; Translations: [OXYBUTYNIN CHLORIDE] Drug Allergy 03-07-20 06 Intolerance [facility] (20 sources) Povidone-Iodine; Translations: [POVIDONE-IODINE] Drug Allergy 11-05-19 07 Rash [facility] Work Phone: (20 sources) Sulfamethoxazole / Trimethoprim; Translations: [SULFAMETHOXAZOLE-TRI METHOPRIM] Drug Allergy 03-20-19 07 [facility] Work Phone: (20 sources) tegaserod; Translations: [TEGASEROD HYDROGEN MALEATE] Drug Allergy 03-07-20 06 Hives [facility] (20 sources) tiZANidine; Translations: [TIZANIDINE] Drug Allergy 03-24-19 15 Other: See Comments [facility] (20 sources) tolterodine; Translations: [TOLTERODINE TARTRATE] Drug Allergy 03-07-20 06 Intolerance [facility] (20 sources) cigarettes [Other] Propensity to adverse reactions 02-23-20 10 Shortness of Breath [facility] (20 sources) ekg patches [Other] Propensity to adverse reactions 02-21-20 06 Hives [facility] (20 sources) paper tape [Other] Propensity to adverse reactions 08-16-19 07 [facility] Work Phone: (20 sources) Adhesive agent; Translations: [ADHESIVE] Allergy to substance 09-19-19 [facility] (6 sources) Aspirin Drug Allergy 09-19-19 Unknown [facility] (11 sources) Benzocaine Drug Allergy 09-19-19 22 Unknown [facility] (11 sources) butamben Drug Allergy 09-19-19 22 Unknown, Vomiting [facility] (11 sources) Dipyridamole Drug Allergy 09-19-19 [facility] (12 sources) methylPREDNISolone; Translations: [methylprednisolone acetate] Drug Allergy 09-19-19 Unknown, Angioedema [facility] (1 source) methylPREDNISolone Drug Allergy 09-19-19 Angioedema [facility] Work Phone: (11 sources) Omeprazole Drug Allergy 09-19-19 22 [facility] (11 sources) Sulfamethoxazole Drug Allergy 09-19-19 22 [facility] (11 sources) Tetracaine Drug Allergy 09-19-19 [facility] (11 sources) Trimethoprim Drug Allergy 09-19-19 [facility] (11 sources) Varicella zoster virus glycoprotein E Drug Allergy 09-19-19 [facility] (6 sources) soap Allergy to substance 09-19-19 [facility] (12 sources) vaccine adjuvant system, AS01B liposomal; Translations: [vaccine adjuvant system, AS01B liposomal] Propensity to adverse reactions 09-19-19 [facility] (1 source) PAPER TAPE Propensity to adverse reactions 09-19-19 [facility] Work Phone: (11 sources) Adhesive Tape; Translations: [adhesive tape] Propensity to adverse reactions 04-24-19 [facility] Comment on above: PAPER TAPE (20 sources) Lisinopril; Translations: [LISINOPRIL] Drug Allergy 04-26-19 Intolerance [facility] Work Phone: Comment on above: question if try katie rgy (20 sources) Adhesive Tape; Translations: [ADHESIVE TAPE (ROSINS)] Allergy to substance 02-13-20 Rash [facility] Work Phone: (20 sources) methylPREDNISolone; Translations: [METHYLPREDNISOLONE] Drug Allergy 02-13-20 Other: See Comments [facility] Work Phone: (20 sources) Cigarette Smoke; Translations: [CIGARETTE SMOKE] Drug Intolerance 02-13-20 Shortness of Breath [facility] Work Phone: (1 source) Benzocaine Drug Allergy 10-16-19 [facility] (1 source) butamben Drug Allergy 10-16-19 [facility] (1 source) Codeine Drug Allergy 10-16-19 [facility] (1 source) Cortisone Drug Allergy 10-16-19 [facility] (1 source) Dipyridamole Drug Allergy 10-16-19 [facility] (1 source) lansoprazole Drug Allergy 10-16-19 [facility] (1 source) Latex Drug allergy (disorder) 10-16-19 [facility] (1 source) Lisinopril Drug Allergy 10-16-19 [facility] (1 source) Meclizine Drug Allergy 10-16-19 [facility] (1 source) Metoprolol Drug Allergy 10-16-19 [facility] (1 source) mirabegron Drug Allergy 10-16-19 [facility] (1 source) Omeprazole Drug Allergy 10-16-19 [facility] (1 source) Omeprazole Drug Allergy 10-16-19 [facility] (1 source) oxybutynin Drug Allergy 10-16-19 [facility] (1 source) Povidone-Iodine Drug Allergy 10-16-19 [facility] (1 source) Sulfamethoxazole Drug Allergy 10-16-19 [facility] (1 source) tegaserod Drug Allergy 10-16-19 [facility] (1 source) Tetracaine Drug Allergy 10-16-19 [facility] (1 source) tiZANidine Drug Allergy 10-16-19 [facility] (1 source) tolterodine Drug Allergy 10-16-19 [facility] (1 source) Trimethoprim Drug Allergy 10-16-19 [facility] (1 source) tegaserod hydrogen maleate Drug allergy (disorder) 10-16-19 [facility] (1 source) varicella-zoster virus glycoprotein E, recombinant Drug allergy (disorder) 10-16-19 [facility] Medications Current Medications Medication Drug [...] BEDTIME NEEDED as needed for Pain Score 1-3/10 February 09, 2019 1:00am April 08, 2019 12:17pm Start: 02-09-2019 End: 04-08-2019 take 500-1000 mg by mouth at bedtime as needed Acetaminophen Discontinued 500 - 1000 MG PO AT BEDTIME NEEDED February 09, 2019 1:00am April 08, 2019 12:17pm take 2 tablets by [facility] every six hours as needed acetaminophen (TYLENOL) 325 mg tablet Take 650 mg by mouth every 6 hours as needed. Tylenol arthritis Active Comment on above: Take 650 mg by mouth every 6 hours as needed. Tylenol arthritis albuterol 0.833 mg/ml / ipratropium bromide 0.167 mg/ml inhalation solution (20 sources) Anticholinergic, beta2-Adrenergic Agonist Start: 3 take 3 mL by inhalation every six [...] &/OR WHEEZING 180 October 02, 2022 12:00am Asthma Unspecified asthma, uncomplicated Start: 10-02-2022 take 1 mL by inhalat ion every four hours as needed Ipratropium-Albuterol Active 3 ML INHALATION EVERY 4 HOURS NEEDED 180 October 02, 2022 12:00am Comment on above: Inhale 3 mL as instr ucted every 6 hours. Unit dose pack. dr Park pulmonology. amLODIPine 5 mg oral tablet (20 sources) Dihydropyridine Calcium Channel Ranjan Start: End: take 2.5 mg by mouth once daily Amlodipine 5 mg tablet Discontinued 2.5 mg PO DAILY January 31, 2023 3:48pm October 15, 2024 10:52am Start: 01-31-2023 take 2.5 mg by mouth once pastora y Amlodipine Active 2.5 MG PO DAILY January 31, 2023 3:48pm Start: 05-24-2022 End: 10-31-2024 take 1 tablet by mouth once daily amLODIPine (NORVASC) 5 mg tablet Take 1 tablet by mouth once daily. 90 tablet 3 11/01/2024 Active Start: 04-24-2022 End: 07-26-2022 take 1 tablet by mouth once daily Amlodipine (Norvasc) 2.5 mg tablet Discontinued 2.5 mg PO DAILY 30 0 April 24, 2022 1:00am July 26, 2022 1:55pm Comment on above: Take 1 tablet by all th once daily. Take by mouth. aspirin 81 mg delayed release oral tablet (20 sources) Platelet Aggregation Inhibitor, Nonsteroidal Anti-inflammatory Drug Start: aspirin, enteric coated (ASPIRIN, ENTERIC COATED) 81 mg EC tablet Take 81 mg by mouth. 02/09/2019 Active Comment on above: Take 81 mg by mouth. benzonatate 100 mg oral capsule (20 sources) Non-narcotic Antitussive Start: End: take 1 capsule by mouth three times daily as needed benzonatate (TESSALON PERLE) 100 mg capsule Indications: Acute cough Take 1-2 capsules by mouth three times a day as needed for cough. 60 capsule 1 01/23/2024 Active budesonide 0.25 mg/ml inhalation suspension (20 sources) Corticosteroid Start: End: take 0.5 mg by inhalation every twelve hours Budesonide 0.5 mg/2 mL suspension for nebulization Active 0.5 mg INHALATION Q12H 120 October 15, 2023 11:04am Asthma Moderate persistent asthma, uncomplicated Start: 10-02-2022 End: 01-31-2023 take 1 mg by inhalation twice daily Budesonide 1 mg/2 mL suspension for nebulization Discontinued 1 mg INHALATION TWICE A DAY 60 October 02, 2022 12:00am January 31, 2023 3:48pm Chronic obstructive pulmonary disease, unspecified Start: 06-15-2020 End: 07-26-2022 take 0.5 mg by inhalation twice daily Budesonide 0.5 mg/2 mL suspension for nebulization Discontinued 0.5 mg INHALATION TWICE A DAY 120 May 29, 2022 12:43pm July 26, 2022 1:59pm Moderate persistent asthma, uncomplicated J45.40 budesonide (PULM ICORT) 0.5 mg/2 mL nebulizer solution Use 0.5 mg via nebulizer once daily. Active Comment on above: Use 0.5 mg via nebul izer once daily. cholecalciferol 0.125 mg oral capsule (20 sources) Vitamin D Start: 10-11-19 20 take 1 capsule by mouth once daily Cholecalciferol (Vitamin D3) 125 mcg (5,000 unit) capsule Active 125 ug PO DAILY October 11, 2019 12:00am Start: 02-09-2019 End: 04-08-2019 take 1 capsule by mouth once daily Cholecalciferol (Vitamin D3) 5,000 UNIT capsule Discontinued 5000 U PO DAILY February 09, 2019 1:00am April 08, 2019 12:18pm supplement take 1 capsule by mo uth once daily cholecalciferol, vitamin D3, 10 mcg (400 unit) cap Take 400 Units by mouth once daily. Active Comment on above: Take 400 Units by mo uth once daily. COMPOUNDED PRESCRIPTION (20 sources) Start: [...] 04/26/2022 Discontinued Start: 10-13-2013 COMPOUNDED PRE SCRIPTION Saunemin Antiseptic Powder (carbolic acid; zinc oxide) as needed per Dr. Arleen Burdick 0 10/13/2013 Active Comment on above: Saunemin Antiseptic Powder (carbolic acid; zinc oxide) as needed per Dr. Arleen Burdick [facility] BED AND MATTRESS, with side rails Diagnoses: [...] above: Take by mouth. Cranberry Fruit Concentrate (10 sources) Non-Standardized Food Allergenic Extract, Non-Standardized Plant [...] 3:11pm cyclobenzaprine hydrochloride 5 mg oral tablet (20 sources) Muscle Relaxant Start: 07-04-2023 take 1 [...] tablet (20 sources) Benzodiazepine Start: 03-25-2024 End: 03-20-2025 diazePAM (VALIUM) 5 mg tablet Indications: Vertigo , Anxiety Take 1 tablet by mouth at bedtime as needed (vertigo or anxiety) for up to 180 days. Patient should start on September 21, 2024. 30 tablet 5 09/21/2024 03/20/2025 Active Start: 09-24-2023 End: 03-22-2024 take 1 [...] mouth at bedtime as needed for anxiety Diazepam 5 mg tablet Active 5 mg PO AT BEDTIME as needed for anxiety January 13, 2019 12:00am Start: 01-13-2019 End: 07-28-2023 take 1 tablet [...] 2023. diclofenac sodium 0.01 mg/mg topical gel (20 sources) Nonsteroidal Anti-inflammatory Drug Start: 4 apply 2 g topically four times daily diclofenac (VOLTAREN) 1 % topical gel Apply 2 g to affected area four times daily. 50 g 07/22/2023 Active gabapentin 100 mg oral capsule (20 sources) Anti-epileptic Agent Start: 4 End: 6 take 3 capsules by mouth once daily at bedtime gabapentin (NEURONTIN) 100 mg capsule Indications: Chronic bilateral low back pain with bilateral sciatica Take 3 capsules by mouth daily at bedtime for 14 days. 42 capsule 11/30/2024 12/14/2024 Active Start: 04-06-2023 End: 02-21-2023 gabapentin (NEURONTIN) 100 m g capsule Indications: Chronic bilateral low back pain with bilateral sciatica Take 3 capsules by mouth daily at bedtime for 180 days. Do not start before April 06, 2023. 270 capsule 1 04/06/2023 02/21/2023 Discontinued Start: 01-11-2014 End: 10-03-2023 take 3 capsules by mouth at bedtime Gabapentin 100 MG capsule Active 300 mg PO AT BEDTIME January 11, 2014 12:00am Start: 01-11-2014 take 300 mg by mouth [...] Do not start before April 06, 2023. Inhalational Spacing Device (Breatherite Mdi Spacer) spacer (11 sources) Start: 10-11-2019 Inhalational Spacing Device (Breatherite Mdi Spacer) spacer Active 0 .ROUTE .MEDSUPPLY 1 0 October 11, 2019 12:00am As directed Start: 10-11-2019 Inhalational S pacing Device (Breatherite Mdi Spacer) spacer Active 0 .ROUTE .MEDSUPPLY October 10, 2019 11:00pm As directed Start: 10-11-2019 Inhalational S pacing Device (Breatherite Mdi Spacer) spacer Active 0 .ROUTE .MEDSUPPLY October 11, 2019 12:00am As directed levothyroxine sodium 0.088 mg oral tablet (20 sources) l-Thyroxine Start: 04-11-2022 End: 09-24-2024 take 1 tablet by mouth once daily for thyroid dysfunction levothyroxine (SYNTHROID) 88 mcg tablet Indications: Acquired hypothyroidism Take 1 tablet by mouth once daily. Take on empty stomach. For Thyroid 90 tablet 3 08/31/2024 Active Start: 08-23-2021 End: 11-01-2021 take 1 tablet by mouth once daily for thyroid dysfunction levothyroxine (SYNTHROID) 88 mcg tablet Indications: Acquired hypothyroidism Take 1 tablet by mouth once daily. Take on empty stomach. For Thyroid 90 tablet 1 04/11/2022 Active Start: 12-08-2020 End: 06-09-2022 take 1 tablet by mouth once daily [...] For Thyroid lidocaine 0.05 mg/mg medicated patch (20 sources) Antiarrhythmic, Amide Local Anesthetic Start: 07-09-2024 lidocaine (LIDODERM) 5 % Indications: Strain of lumbar region, subsequent encounter , Chronic bilateral low back pain with bilateral sciatica Apply 1 patch as directed once daily. Remove old patch after wearing for 12 hours and then 12 hours later apply new patch for 12 hours on the site and 12 hours off the site. Location: right lower back. 30 patch 1 07/09/2024 Active Start: 07-04-2023 lidocaine (LID ODERM) 5 % Indications: Strain of lumbar region, [...] DAILY April 08, 2019 1:00am Multivitamin tablet (3 sources) Start: 04-08-2019 Multivitamin tablet Active 1 {tbl} [...] Comment on above: Take 1 capsule by mo uth twice daily for 7 days. nystatin 100 unt/mg topical powder (2 sources) Polyene Antifungal Start: 09-19-2022 End: 10-03-2022 nystatin (MYCOSTATIN) powder Indications: Intertrigo Apply 1 application to affected area four times daily for 14 days. 60 g 1 09/19/2022 10/03/2022 Active Comment on above: Apply 1 application to affected area four times daily for 14 days. silver sulfADIAZINE 10 mg/ml topical cream (1 source) Sulfonamide Antibacterial Start: 02-22-2022 End: 03-08-2022 silver sulfADIAZINE (SILVADENE,THERMAZE NE) 1 % cream Apply 1 application to affected area once daily for 14 days. Left foot wound. 50 g 0 02/22/2022 03/08/2022 Active Comment on above: Apply 1 application to affected area once daily for 14 days. Left foot wound. spironolactone 25 mg oral tablet (20 sources) Aldosterone Antagonist Start: 07-26-2022 End: 08-15-2023 take 1 tablet by mouth once daily spironolactone (ALDACTONE) 25 mg tablet Indications: Essential hypertension Take 1 tablet by mouth once daily. 90 tablet 3 02/21/2023 Active Comment on above: Take 25 mg by mouth once daily. Take 1 tablet by all th once daily. valACYclovir 1000 mg oral tablet (8 sources) [...] / HYDROcodone bitartrate 5 mg oral tablet (15 sources) Opioid Agonist Start: 06-19-2023 End: 08-15-2023 Hydrocodone-Acetamin ophen 5-325 mg tablet Discontinued 1 {tbl} PO EVERY 6 HOURS NEEDED as needed for Pain 10 June 19, 2023 August 15, 2023 11:01am Acute lumbar radiculopathy Radiculopathy, lumbar region Start: 06-19-2023 take 1 tablet by all th every six hours as needed Hydrocodone-Acetaminophen Active 1 TABLE T PO EVERY 6 HOURS NEEDED 10 June 19, 2023 Start: 02-10-2019 End: 02-12-2019 Hydrocodone-Acetaminophen 1 TABLET tablet Discontinued 1 {tbl} PO EVERY 6 HOURS NEEDED as needed for Pain 8 2 0 February 10, 2019 February 11, 2019 1:00am February 12, 2019 1:09am Postoperative pain Other acute postprocedural pain Start: 02-10-2019 End: 02-12-2019 take 1 tablet by mouth every six hours as needed Hydrocodone-Acetaminophen Discontinued 1 TABLET PO EVERY 6 HOURS NEEDED 8 2 February 10, 2019 February 12, 2019 1:09am acetaminophen 325 mg / oxyCODONE hydrochloride 5 mg oral tablet (2 sources) Opioid Agonist Start: 08-22-2024 End: 10-15-2024 Oxycodone-Acetaminophen 5-325 mg tablet Discontinued 1 {tbl} PO EVERY 6 HOURS NEEDED as needed for Pain 12 3 0 August 22, 2024 October 15, 2024 10:11am Acute exacerbation of chronic low back pain Low back pain, unspecified Other chronic pain albuterol 5 mg/ml inhalation solution (20 sources) beta2-Adrene rgic Agonist Start: 07-30-2022 End: 10-02-2022 take 2.5 mg by inhalation every four hours as needed for wheezing Albuterol Sulfate 2.5 mg/0.5 mL solution for nebulization Discontinued 2.5 mg INHALATION Q4H as needed for shortness of breath or wheezing 180 6 July 30, 2022 1:14pm October 02, 2022 1:47pm Asthma Moderate persistent asthma, uncomplicated Start: 07-26-2022 End: 07-30-2022 take 10 mg [...] needed for shortness of breath or wheezing 01 09September 20, 2019 12:00am January 31, 2023 3:51pm Start: 09-20-2019 End: 01-31-2023 take 1 puff(s) by inhalation every four hours Albuterol Sulfate (Ventolin Hfa) 90 mcg/actuation HFA aerosol inhaler Discontinued 2 PUFF INHALATION Q4H September 20, 2019 12:00am January 31, 2023 3:51pm Comment on above: INHALE 2 PUFFS BY MO UT EVERY 4 HOURS NEEDED FOR SHORTNESS OF [...] at bedtime. celecoxib 100 mg oral capsule (3 sources) Nonsteroidal Anti-inflammatory Drug Start: 12-01-19 End: 01-23-20 take 1 capsule by mouth twice daily Celecoxib (Celebrex) 100 mg capsule Discontinued 100 mg PO TWICE A DAY 30 0 December 01, 2023 12:00am January 23, 2024 10:21am Do not take in conjunction with other NSAID. Tylenol is okay. esomeprazole 20 mg delayed release oral capsule (20 sources) Proton Pump Inhibitor Start: 07-27-19 End: 02-01-20 23 take 1 capsule by mouth once daily [...] Comment on above: Take 1 capsule by mo ut once daily. Needs [employer] over the counter, [...] with device Discontinued 1 NMA INHALATION DAILY 03 22November 04, 2019 12:00am June 15, 2020 2:08pm [...] Inhalation as instructed once daily. Dr. Park hydrocortisone 25 mg/ml topical cream (4 sources) Corticosteroid Start: 12-01-2023 End: 10-15-2024 Hydrocortisone 2.5 % cream with perineal applicator Discontinued 1 NMA TOPICAL daily December 01, 2023 12:00am October 15, 2024 10:12am Start: 10-17-2023 End: 10-24-2023 hydrocortisone (ANUSOL-HC) 2 .5 % rectal cream Indications: External hemorrhoid by RECTAL route two times a day for 7 days. 28 g 1 10/17/2023 10/24/2023 Active hyoscyamine sulfate 0.125 mg oral tablet (14 sources) Start: 02-02-2018 End: 04-26-2022 hyoscyamine (LEVSIN) 0.125 mg tablet 02/02/2018 04/26/2022 Discontinued hypromellose 0.003 mg/mg ophthalmic gel (20 sources) End: 05-21-2024 Artificial Tear, Hypromellose, (SYSTANE GEL) 0.3 % gel 1 Drop daily at bedtime. 05/21/2024 Discontinued Comment on above: 1 Drop daily at bedt bing. lactulose 667 mg/ml oral solution (12 sources) Osmotic Laxative Start: 02-20-2024 End: 10-15-2024 take 30 mL by mouth once daily Lactulose 20 gram/30 mL solution Discontinued 20 g PO AT BEDTIME 2700 90 2 February 20, 2024 2:16pm October 15, 2024 10:12am Take 30ml by mouth every night. Start: [...] 20 g PO AT BEDTIME 2700 90 2 August 15, 2023 12:00am February 20, 2024 2:16pm Take 30ml by mouth every night. Start: 08-15-2023 End: 02-20-2024 take 30 mL by mouth once daily Lactulose 20 gram/30 mL solution Discontinued 20 g PO AT BEDTIME 2700 90 August 15, 2023 12:00am February 20, 2024 2:16pm Take 30ml by mouth every night. lisinopril 10 mg oral tablet (20 sources) Angiotensin Converting Enzyme Inhibitor Start: 07-26-2022 End: 07-26-2022 take 1 tablet by mouth [...] once daily. lubiprostone 0.008 mg oral capsule (20 sources) Chloride Channel Activator Start: End: take 1 capsule by mouth once daily [...] 08, 2019 1:00am August 15, 2023 10:19am cataracts Start: 04-08-2019 White Petrolat um-Mineral Oil (Systane Nighttime) 94-3 % ointment Active 1 APPLIC OPHTHALMIC 2 to 4 times per day April 08, 2019 12:00am Start: 02-24-2017 End: 04-26-2022 white petrolatum 94% - life claims examiner al oil 3% 94-3 % oint Dr. Guera [facility] 02/24/2017 04/26/2022 Discontinued Comment on above: Dr. Guera [facility] (14 sources) Start: 10-12-2019 End: 04-26-2022 [facility] as directed. 10/12/2019 04/26/2022 Discontinued Start: 10-12-2019 End: 04-26-2022 [facility] as d irected. 0 10/12/2019 04/26/2022 Discontinued Start: 10-12-2019 [facility] as directed. 0 10/12/2019 Active Comment on above: as directed. oseltamivir 75 mg oral capsule (11 sources) Neuraminidase Inhibitor Start: 06-03-19 End: 01-14-20 take 1 capsule by mouth twice daily Oseltamivir 75 MG capsule Discontinued 75 mg PO TWICE A DAY 9 0 June 02, 2018 12:00am January 13, 2019 9:05am pantoprazole 40 mg delayed release oral tablet (6 sources) Proton Pump Inhibitor Start: 08-15-19 24 End: 08-15-19 take 1 tablet by mouth twice daily Pantoprazole 20 mg tablet,delayed release (DR/EC) Discontinued 20 mg PO TWICE A DAY 60 5 August 15, 2023 12:00am August 15, 2023 11:39am Start: 08-15-2023 End: 10-15-2024 take 1 tablet by mouth twice daily Pantoprazole 40 mg tablet,delayed release (DR/EC) Discontinued 40 mg PO TWICE A DAY 180 90 2 August 15, 2023 12:00am October 15, 2024 10:12am polyethylene glycol 3350 71913 mg powder for oral solution (7 sources) Osmotic Laxative Start: 08-05-2022 End: 01-31-2023 Polyethylene Glycol 3350 (Miralax) 17 gram/dose powder Discontinued 17 g PO DAILY 119 0 August 05, 2022 12:00am January 31, 2023 3:52pm Use once daily until you have a large bowel movement. predniSONE 20 mg oral tablet (11 sources) Start: 09-18-2021 End: 04-03-2022 Prednisone 20 mg tablet Discontinued 0 .ROUTE .COMPLEX 24 0 September 18, 2021 12:00am April 03, 2022 10:04am 3 tabs p.o. daily days 1 through 4, then 2 tabs p.o. daily days 5 through 8, then 1 tab p.o. daily day 9 through 12 Problems Active Problems Problem Classification Problem Date Documented Da te Episodic/Chronic Abdominal hernia (20 sources) Hiatal hernia; Translations: [Diaphragmatic hernia without obstruction or gangrene] 03-12-2021 Episodic Abdominal pain (14 sources) Abdominal pain; Translations: [Unspecified abdominal pain] 09-27-2022 Episodic Allergic reactions (11 sources) Contact dermatitis; Translations: [Unspecified contact dermatitis, unspecified cause] 09-26-2021 Episodic Anxiety disorders (20 sources) Anxiety; Translations: [Anxiety disorder, unspecified] Onset: 10-22-2013 10-22-2013 Chronic Asthma (17 sources) Asthma; Translations: [Unspecified asthma, uncomplicated] Chronic Complications of surgical procedures or medical care (20 sources) History of adrenalectomy; 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 Diabetes mellitus without complication (10 sources) Diabetic on diet only; Translations: [Type 2 diabetes mellitus without complications] Onset: 09-24-2024 01-23-2024 Chronic Disorders of lipid metabolism (20 [...] Translations: [Residual hemorrhoidal skin tags] 10-17-2023 Episodic Lymphadenitis (1 source) Submandibular lymphadenopathy; Translations: [Localized enlarged lymph nodes] Episodic Malaise and fatigue (1 source) Weakness; Translations: [Weakness] Onset: 08-26-2024 Episodic Nutritional deficiencies (5 sources) Vitamin D deficiency; Translations: [Vitamin D deficiency, unspecified] Onset: 01-23-2024 Chronic Osteoarthritis (12 sources) Osteoarthritis of left knee joint; Translations: [Unilateral primary osteoarthritis, left knee] Onset: 01-23-2024 12-01-2023 Chronic Other acquired deformities (3 sources) Scoliosis of lumbar spine; Translations: [Scoliosis, unspecified] 07-03-2023 Chronic Other acquired deformities (3 sources) Lumbar spondylolisthesis; Translations: [Spondylolisthesis, lumbar region] 07-03-2023 Episodic Other aftercare (1 source) Long-term current use of drug therapy; Translations: [Other longterm (current) drug therapy] 09-17-2023 Episodic Other aftercare (1 source) Encounter for therapeutic drug level monitoring; Translations: [Encounter for therapeutic drug monitoring] Onset: 09-24-2024 Episodic Other and unspecified benign neoplasm (1 source) History of polyp of colon; Translations: [Personal history of colonic polyps] Episodic Other bone disease and musculoskeletal deformities (20 sources) Segmental and somatic dysfunction; Translations: [Segmental and somatic dysfunction of lumbar region] 02-10-2019 Episodic Other circulatory disease (11 sources) H/O: heart disorder; Translations: [Personal history of other diseases of the circulatory system] 02-10-2019 Episodic Other circulatory disease (7 sources) History of transient ischemic attack; Translations: [Personal history of transient ischemic attack (TIA), and cerebral infarction without residual deficits] 08-13-2022 Episodic Other connective tissue disease (9 sources) Pain in lower limb; Translations: [Pain [...] Translations: [Ganglion, unspecified site] 08-30-2020 Episodic Other connective tissue disease (4 sources) Trochanteric bursitis; Translations: [Trochanteric bursitis, left hip] 06-18-2024 Episodic Other connective tissue disease (1 source) Bursitis of left hip; Translations: [Other bursitis of hip, left hip] 09-24-2024 Episodic Other diseases of bladder and urethra (20 sources) Overactive bladder; Translations: [Overactive bladder] Onset: 06-16-2013 06-16-2013 Chronic Other gastrointestinal disorders (20 sources) Irritable bowel syndrome; Translations: [Irritable bowel syndrome without diarrhea] 02-20-2006 Chronic Other gastrointestinal disorders (7 sources) History of irritable bowel syndrome; Translations: [Personal history of other diseases of the digestive system] 08-13-2022 Episodic Other gastrointestinal disorders (7 sources) Acute constipation; Translations: [Constipation, unspecified] 08-13-2022 Episodic Other gastrointestinal disorders (4 sources) Diarrhea; Translations: [Diarrhea, unspecified] 02-24-2024 Episodic Other inflammatory condition of skin (1 source) Intertrigo; Translations: [Erythema intertrigo] Episodic Other injuries and conditions due to external causes (1 source) History of fall; Translations: [History of falling] 12-15-2020 Episodic Other injuries and conditions due to external causes (3 sources) Injury of left knee; Translations: [Unspecified injury of left lower leg, initial encounter] 11-26-2023 Episodic Other lower respiratory disease (14 sources) Chronic cough; Translations: [Chronic cough] Episodic Other lower respiratory disease (1 source) Cough; Translations: [Acute cough] 01-23-2024 Episodic Other nervous system disorders (9 sources) Difficulty walking; Translations: [Difficulty in walking, [...] in joint, shoulder region] 12-15-2020 Episodic Other nutritional; endocrine; and metabolic disorders (20 sources) Metabolic syndrome X; Translations: [Metabolic syndrome] 02-20-2006 Chronic Other nutritional; endocrine; and metabolic disorders (20 sources) Obesity; Translations: [Obesity, unspecified] 06-26-2011 Chronic Other nutritional; endocrine; and metabolic disorders (7 sources) Obese class II; Translations: [Obesity, Class II, BMI 35-39.9] Onset: 09-24-2024 09-24-2024 Chronic Other skin disorders (1 source) Eruption; [...] in throat] Episodic Peripheral and visceral atherosclerosis (11 sources) Peripheral vascular disease, unspecified; Translations: [Peripheral arterial disease] 02-08-2019 Chronic Comment on above: Bilateral LE small v essel disease Residual codes; unclassified (1 source) Family history of cancer of colon; Translations: [Family history of malignant neoplasm of digestive organs] Episodic Residual codes; unclassified (1 source) Family history of gene mutation; Translations: [Family history of carrier of genetic disease] Episodic Spondylosis; intervertebral disc disorders; other back problems (13 sources) Degeneration of lumbar intervertebral disc; Translations: [Other intervertebral disc degeneration, lumbar region] 02-09-2019 Chronic Sprains and strains (5 sources) Lower back injury; Translations: [Strain of muscle, fascia and tendon of lower back, initial encounter] 06-19-2023 Episodic Superficial injury; contusion (20 sources) Contusion of foot; Translations: [Contusion of unspecified foot, initial encounter] 06-18-2020 Episodic Thyroid disorders (20 sources) Hypothyroidism; Translations: [Hypothyroidism, unspecified] Onset: 03-12-2021 03-12-2021 Chronic Unclassified (1 source) Obesity, Class II, BMI 35-39.9; Translations: [Obesity, Class II, BMI 35-39.9] Onset: 09-24-2024 Unclassified (1 source) Acute cough; Translations: [Acute cough] Onset: 07-11-2019 Viral infection (12 sources) Disease caused by 2019-nCoV; Translations: [COVID-19] [...] Headache; Translations: [Cephalalgia] Onset: 11-28-2014 11-28-2014 Episodic Immunizations and screening for infectious disease (1 source) Encounter for immunization; Translations: [Encounter for immunization] Onset: 05-21-2024 Episodic Other acquired deformities (1 source) Spondylolisthesis, lumbar region; Translations: [Spondylolisthesis, lumbar region] Onset: 06-18-2024 Episodic Other aftercare (1 source) Other longterm (current) drug therapy; Translations: [Encounter for long-term [...] [Visible peristalsis] Onset: 06-23-2013 03-12-2021 Episodic Other gastrointestinal disorders (1 source) Diarrhea, unspecified; Translations: [Diarrhea, unspecified] Onset: 04-28-2024 Episodic Other injuries and conditions due to [...] 09-03-2011 03-12-2021 Episodic Other non-traumatic joint disorders (20 sources) Pain in left shoulder; Translations: [Pain in joint, shoulder region] Onset: 06-04-2017 06-04-2017 Episodic Other non-traumatic joint disorders (4 sources) Pain in right knee; Translations: [Other acute pain] Onset: 03-12-2024 07-22-2023 Episodic Other non-traumatic joint disorders (1 source) Pain in left hip; Translations: [Pain in left hip] Onset: 06-18-2024 Episodic Other screening for suspected conditions (not mental disorders or infectious disease) (10 sources) Patient encounter status; Translations: [Encounter for screening mammogram for malignant neoplasm of breast] Onset: 03-05-2024 Episodic Phlebitis; thrombophlebitis and thromboembolism (20 sources) H/O: Deep vein thrombosis; Translations: [Personal history of other venous thrombosis and embolism] Onset: 11-02-2009 Resolved: 03-04-2017 02-10-2019 Episodic Residual codes; unclassified (20 sources) Bilateral lower limb edema; Translations: [Localized edema] Onset: 07-11-2019 07-11-2019 Episodic Screening and history of mental health and substance abuse codes (1 source) Encounter for screening for depression; Translations: [Screening for depression] Onset: 01-23-2024 Episodic Spondylosis; intervertebral disc disorders; other back problems (20 sources) Chronic neck pain; Translations: [Cervicalgia] Onset: 09-16-2017 09-16-2017 Episodic Results Test Name Value Interpretation Reference Range Facility Cardiology Visit Reporton Cardiology Visit Report [facility] [address] [place] [address] OFFICE VISIT Date of Service: 10/15/24 MR#: [id number] Acct: [id number] Name: KESHIA ROJAS Rep #: [id number] 3 : 1950 Provider: LEONEL Larsen Age/Sex: 74/F Location: [facility] [place] Status: Signed HPI HPI History of Present Illness Details: Keshia Rojas is a 74-year-old who presents here today for a cardiovascular follow-up.??? She has a history of nonobstructive coronary artery disease, hypertension, peripheral vascular disease, history of DVT.???In March 2019 was a negative stress pharmacologic test. Echocardiogram March 2019 showed an EF of 65% with trivial valve disease and no evidence of diastolic dysfunction right ventricular systolic pressure was estimated at 11. The patient has a multitude of allergies and intolerances to medications. Pt is having issues with her back. She is having issues with her balance and has numbness in her feet. She is still working at [employer]. She works 4-5 days a week. She does not have any chest pain. She does have SOB with exertion and rest. She does have fatigue. She does have swelling in her feet. She recently had labs done at [facility]. She only uses her spirolactone on as needed basis. 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 Is patient in pain?: No Allergies latex Allergy (Unknown, Verified 10/15/24 10:09) PT UNSURE OF REACTION adhesive Allergy (Verified 10/15/24 10:09) Unknown benzocaine (From Cetacaine) Allergy (Verified 10/15/24 10:09) Unknown butamben (From Cetacaine) Allergy (Verified 10/15/24 10:09) Vomiting cortisone (Cortisone) Allergy (Verified 10/15/24 10:09) Unknown dipyridamole (From Aggrenox) Allergy (Verified 10/15/24 10:09) Unknown lansoprazole (From Prevacid) Allergy (Verified 10/15/24 10:09) Unknown meclizine Allergy (Verified 10/15/24 10:09) Unknown methylprednisolone acetate (From Depo-Medrol) Allergy (Verified 10/15/24 10:09) Angioedema metoprolol Allergy (Verified 10/15/24 10:09) Unknown omeprazole (From Prilosec) Allergy (Verified 10/15/24 10:09) Unknown omeprazole magnesium (From Prilosec) Allergy (Verified 10/15/24 10:09) Unknown oxybutynin chloride (From Ditropan) Allergy (Verified 10/15/24 10:09) Unknown povidone-iodine (From Betadine) Allergy (Verified 10/15/24 10:09) Unknown sulfamethoxazole (From Bactrim) Allergy (Verified 10/15/24 10:09) Unknown tegaserod (From Zelnorm) Allergy (Verified 10/15/24 10:09) Hives tegaserod hydrogen maleate (From Zelnorm) Allergy (Verified 10/15/24 10:09) Unknown tetracaine (From Cetacaine) Allergy (Verified 10/15/24 10:09) Unknown tolterodine tartrate (From Detrol) Allergy (Verified 10/15/24 10:09) Unknown trimethoprim (From Bactrim) Allergy (Verified 10/15/24 10:09) Unknown lisinopril Adverse Reaction (Intermediate, Verified 10/15/24 10:09) Angioedema adhesive tape Adverse Reaction (Verified 10/15/24 10:09) Rash codeine Adverse Reaction (Verified 10/15/24 10:09) Unknown mirabegron (From Myrbetriq) Adverse Reaction (Verified 10/15/24 10:09) Other tizanidine Adverse Reaction (Verified 10/15/24 10:09) Other vaccine adjuvant system, AS01B liposomal (From Shingrix (PF)) Adverse Reaction (Verified 10/15/24 10:09) Rash varicella-zoster virus glycoprotein E, recombinant (From ShinProfectus Biosciencesix (PF)) Adverse Reaction (Verified 10/15/24 10:09) Rash Medications ???Medication ???Instructions ???Recorded ???Confirmed ???Type gabapentin 100 mg capsule 300 mg PO QHS 01/11/14 10/15/24 Hi story diazepam 5 mg tablet 5 mg PO QHS PRN anxiety 01/13/19 0 10/15/24 History aspirin 81 mg tablet,delayed 81 mg PO DAILY@0800 02/09/1910/15 History release multivitamin 1 tab PO DAILY 04/08/19 10/15/24 H istory cholecalciferol (vitamin D3) 125 125 mcg PO DAILY 10/11/19 10/15/24 History mcg (5,000 unit) capsule inhalational spacing device #1 ea 10/11/19 06/18/24 Rx (BreatheRite MDI Spacer) acetaminophen 500 mg capsule 500 mg PO Q6H PRN Pain 05/05/22 History levothyroxine 88 mcg tablet 88 mcg PO DAILY 07/26/22 10/15/24 History ipratropium 0.5 mg-albuterol 3 mg 3 ml inhalation Q4H PRN PRN SOB 0 10/02/22 10/15/24 Rx (2.5 mg base)/3 mL nebulization /OR WHEEZING #180 mL soln cranberry fruit concentrate 250 mg 250 mg PO DAILY 01/31/23 5 History chewable tablet (Azo Cranberry) spironolactone 25 mg tablet 25 mg PO 1700 PRN 08/15/23 5 History budesonide 0.5 mg/2 mL susp (more content not included)... Normal [facility] 25(OH)D3 SerPl-mCncon 2024 25-hydroxyvitamin D3 [Mass/Vol] 52.7 ng/mL Normal 31.0-80.0 [facility] Comment on above: Order Comment: Speci men Type: BLOOD SPECIMENOrdering Facility: [facility] Address: [address] [place] [address] Result Comment: Clas sification of 25 [place] Vitamin D status: Deficiency/Insufficiency: < or = 30 ng/ml. Sufficiency/Optimal Levels: 31-80 ng/mL Toxicity: > 100 ng/mL. Test performed by chemiluminescent immunoassay. Performed By: #### 1 989-3 ####[facility] LABCLIA [id number] [place] [address] [place] CBC W Auto Differential pane l (Bld)on 09-24-2024 Basophils (Bld) [#/Vol] 0.07 10*3/uL [facility] Basophils/100 WBC (Bld) 0.6 % [facility] Differential cell count method Nom (Bld) Auto [facility] Eosinophils (Bld) [#/Vol] 0.05 10*3/uL [facility] Eosinophils/100 WBC (Bld) 0.4 % [facility] Erythrocyte distribution width (RBC) [Ratio] 13.4 % 11.5 - 15.0 % [facility] Hematocrit (Bld) [Volume fraction] 43.7 % 36.0 - 46.0 % [facility] Hemoglobin (Bld) [Mass/Vol] 14.4 g/dL 11.5 - 15.5 g/dL [facility] Immature granulocytes (Bld) [#/Vol] 0.05 10*3/uL [facility] Immature granulocytes/100 WBC (Bld) 0.4 % [facility] Interpretation and review of laboratory results Abnormal [facility] Lymphocytes (Bld) [#/Vol] 1.75 10*3/uL [facility] Lymphocytes/100 WBC (Bld) 14.5 % [facility] MCH (RBC) [Entitic mass] 31.4 pg 26. 0 - 34.0 pg [facility] MCHC (RBC) [Mass/Vol] 33 g/dL 30.5 - 36.0 g/dL [facility] MCV (RBC) [Entitic vol] 95.2 fL 80.0 - 100.0 fL [facility] Monocytes (Bld) [#/Vol] 0.73 10*3/uL [facility] Monocytes/100 WBC (Bld) 6.1 % [facility] Neutrophils (Bld) [#/Vol] 9.4 10*3/uL High [facility] Neutrophils/100 WBC (Bld) 78 % [facility] Nucleated RBC (Bld) [#/Vol] NINF [facility] Nucleated RBC/100 WBC (Bld) [Ratio] 0 % /100 WBC [facility] Platelet mean volume (Bld) [Entitic vol] 10.2 fL 9.0 - 12.7 fL [facility] Platelets (Bld) [#/Vol] 373 10*3/uL [facility] RBC (Bld) [#/Vol] 4.59 10*6/uL 3.90 - 5.20 m/uL [facility] WBC (Bld) [#/Vol] 12.05 10*3/uL High [facility] Basophils (Bld) [#/Vol] 0.07 10*3/uL Normal <0.11 [facility] Comment on above: Order Comment: Speci men Type: BLOOD SPECIMENOrdering Facility: [facility] Address: [address] [place] [address] Performed By: #### 5 7021-8 ####[facility] LABIA [id number] [place] [address] [place] Basophils/100 WBC (Bld) 0.6 % Normal [facility] Comment on above: Order Comment: Speci men Type: BLOOD SPECIMENOrdering Facility: [facility] Address: [address] [place] [address] Performed By: #### 5 7021-8 ####[facility] LABIA [id number] [place] [address] [place] Differential cell count method Nom (Bld) Auto Normal [facility] Comment on above: Order Comment: Speci men Type: BLOOD SPECIMENOrdering Facility: [facility] Address: [address] [place] [address] Performed By: #### 5 7021-8 ####[facility] LABCLIA [id number] [place] [address] [place] Eosinophils (Bld) [#/Vol] 0.05 10*3/uL Normal <0.46 [facility] Comment on above: Order Comment: Speci men Type: BLOOD SPECIMENOrdering Facility: [facility] Address: [address] [place] [address] Performed By: #### 5 7021-8 ####[facility] LABCLIA [id number] [place] [address] [place] Eosinophils/100 WBC (Bld) 0.4 % Normal [facility] Comment on above: Order Comment: Speci men Type: BLOOD SPECIMENOrdering Facility: [facility] Address: [address] [place] [address] Performed By: #### 5 7021-8 ####[facility] LABCLIA [id number] [place] [address] [place] Erythrocyte distribution width (RBC) [Ratio] 13.4 % Normal 11.5-15.0 [facility] Comment on above: Order Comment: Speci men Type: BLOOD SPECIMENOrdering Facility: [facility] Address: [address] [place] [address] Performed By: #### 5 7021-8 ####[facility] LABCLIA [id number] [address] [place] Hematocrit (Bld) [Volume fraction] 43.7 % Normal 36.0-46.0 [facility] Comment on above: Order Comment: Speci men Type: BLOOD SPECIMENOrdering Facility: [facility] Address: [address] [place] [address] Performed By: #### 5 7021-8 ####[facility] LABCLIA [id number] [place] [address] [place] Hemoglobin (Bld) [Mass/Vol] 14.4 g/dL Normal 11.5-15.5 [facility] Comment on above: Order Comment: Speci men Type: BLOOD SPECIMENOrdering Facility: [facility] Address: [address] [place] [address] Performed By: #### 5 7021-8 ####[facility] LABCLIA [id number] [place] [address] [place] Immature granulocytes (Bld) [#/Vol] 0.05 10*3/uL Normal <0.10 [facility] Comment on above: Order Comment: Speci men Type: BLOOD SPECIMENOrdering Facility: [facility] Address: [address] [place] [address] Performed By: #### 5 7021-8 ####[facility] LABCLIA [id number] [place] [address] [place] Immature granulocytes/100 WBC (Bld) 0.4 % Normal [facility] Comment on above: Order Comment: Speci men Type: BLOOD SPECIMENOrdering Facility: [facility] Address: [address] [place] [address] Performed By: #### 5 7021-8 ####[facility] LABCLIA [id number] [place] [address] [place] Lymphocytes (Bld) [#/Vol] 1.75 10*3/uL Normal 1.00-4.0 0 [facility] Comment on above: Order Comment: Speci men Type: BLOOD SPECIMENOrdering Facility: [facility] Address: [address] [place] [address] Performed By: #### 5 7021-8 ####[facility] LABCLIA [id number] [place] [address] [place] Lymphocytes/100 WBC (Bld) 14.5 % Normal [facility] Comment on above: Order Comment: Speci men Type: BLOOD SPECIMENOrdering Facility: [facility] Address: [address] [place] [address] Performed By: #### 5 7021-8 ####[facility] [id number] [place] [address] [place] MCH (RBC) [Entitic mass] 31.4 pg Normal 26.0-34.0 [facility] Comment on above: Order Comment: Speci men Type: BLOOD SPECIMENOrdering Facility: [facility] Address: [address] [place] [address] Performed By: #### 5 7021-8 ####[facility] [id number] [place] [address] [place] MCHC (RBC) [Mass/Vol] 33.0 g/dL Normal 30.5-36.0 [facility] Comment on above: Order Comment: Speci men Type: BLOOD SPECIMENOrdering Facility: [facility] Address: [address] [place] [address] Performed By: #### 5 7021-8 ####[facility] [id number] [place] [address] [place] MCV (RBC) [Entitic vol] 95.2 fL Normal 80.0-100.0 [facility] Comment on above: Order Comment: Speci men Type: BLOOD SPECIMENOrdering Facility: [facility] Address: [address] [place] [address] Performed By: #### 5 7021-8 ####[facility] [id number] [place] [address] [place] Monocytes (Bld) [#/Vol] 0.73 10*3/uL Normal <0.87 [facility] Comment on above: Order Comment: Speci men Type: BLOOD SPECIMENOrdering Facility: [facility] Address: [address] [place] [address] Performed By: #### 5 7021-8 ####[facility] LABCLIA [id number] [address] [address] [place] Monocytes/100 WBC (Bld) 6.1 % Normal [facility] Comment on above: Order Comment: Speci men Type: BLOOD SPECIMENOrdering Facility: [facility] Address: [address] [place] [address] Performed By: #### 5 7021-8 ####[facility] LABCLIA [id number] [place] [address] [place] Neutrophils (Bld) [#/Vol] 9.40 10*3/uL High 1.45-7.5 0 [facility] Comment on above: Order Comment: Speci men Type: BLOOD SPECIMENOrdering Facility: [facility] Address: [address] [place] [address] Performed By: #### 5 7021-8 ####[facility] LABCLIA [id number] [place] [address] [place] Neutrophils/100 WBC (Bld) 78.0 % Normal [facility] Comment on above: Order Comment: Speci men Type: BLOOD SPECIMENOrdering Facility: [facility] Address: [address] [place] [address] Performed By: #### 5 7021-8 ####[facility] LABCLIA [id number] [place] [address] [place] Nucleated RBC (Bld) [#/Vol] 10*3/uL Normal <0.01 [facility] Comment on above: Order Comment: Speci men Type: BLOOD SPECIMENOrdering Facility: [facility] Address: [address] [place] [address] Performed By: #### 5 7021-8 ####[facility] LABCLIA [id number] [address] [address] [place] Nucleated RBC/100 WBC (Bld) [Ratio] 0.0 /100 WBC Normal [facility] Comment on above: Order Comment: Speci men Type: BLOOD SPECIMENOrdering Facility: [facility] Address: [address] [place] [address] Performed By: #### 5 7021-8 ####[facility] LABCLIA [id number] [address] [address] [place] Platelet mean volume (Bld) [Entitic vol] 10.2 fL Normal 9.0-12.7 [facility] Comment on above: Order Comment: Speci men Type: BLOOD SPECIMENOrdering Facility: [facility] Address: [address] [place] [address] Performed By: #### 5 7021-8 ####[facility] LABIA [id number] [place] [address] [place] Platelets (Bld) [#/Vol] 373 10*3/uL Normal 150-400 [facility] Comment on above: Order Comment: Speci men Type: BLOOD SPECIMENOrdering Facility: [facility] Address: [address] [place] [address] Performed By: #### 5 7021-8 ####[facility] LABIA [id number] [place] [address] [place] RBC (Bld) [#/Vol] 4.59 10*6/uL Normal 3.90-5.20 [facility] Comment on above: Order Comment: Speci men Type: BLOOD SPECIMENOrdering Facility: [facility] Address: [address] [place] [address] Performed By: #### 5 7021-8 ####[facility] LABIA [id number] [place] [address] [place] WBC (Bld) [#/Vol] 12.05 10*3/uL High 3.70-11.00 [facility] Comment on above: Order Comment: Speci men Type: BLOOD SPECIMENOrdering Facility: [facility] Address: [address] [place], [place] [address] Performed By: #### 5 7021-8 ####[facility] WILLIE [id number] ELVIE CHRISTESNEN [id number] [place], [place] [id number] [facility] CNOVon 09-24-2024 CNOV Office Visit (INTMWS ) ----- KESHIA ROJAS ([id number]) 1950 F Date Time Provider Department 09/24/24 10:40 AM NORMAN GARCIA INTMWS During your visit today, we recorded the following information about you: Pulse Respiration Blood pressure Weight 77/minute 16/minute 136/78 93 kg Norman Garcia APRN.CHAINMAN 09/24/2024 12:35 PM Signed SUBJECTIVE Keshia Rojas is a 74 year old female here today for a check up on her medical problems. Chief Complaint Patient presents with: 4 month f/u HPI Keshia Rojas is a 74-year-old female with a history of anxiety, presenting for follow-up. Keshia reports increased anxiety and questions the efficacy of her current diazepam regimen, which she has been taking since her attempted suicide. She is currently taking diazepam nightly. She also reports leg pain and cramping, particularly in the morning when getting out of her hospital bed. She attributes this to being on her feet for 5-6 hours a day at work. She recently received an injection for hip bursitis, which has reduced swelling on one side of her foot. She also mentions a separate incident where someone stepped on her foot, causing bruising and soreness. She is scheduled to see a tool or die drawing checker on November 12 for further evaluation. Keshia has been experiencing difficulties with her mail-order thyroid medication, noting delays in delivery. 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 Recording using [employer]) software for draft documentation of the visit was discussed with the patient/authorized patient accounting representative; all questions welcomed and answered. Patient/authorized patient accounting representative agreed to proceed Her medications were reviewed today and her list is now up to date. Medications Current Outpatient Medications Medication Sig levothyroxine (SYNTHROID) 88 mcg tablet Take 1 tablet by mouth once daily. Take on empty stomach. For Thyroid diazePAM (VALIUM) 5 mg tablet Take 1 tablet by mouth at bedtime as needed (vertigo or anxiety) for up to 180 days. Patient should start on September 21, 2024. lidocaine (LIDODERM) 5 % Apply 1 patch as directed once daily. Remove old patch after wearing for 12 hours and then 12 hours later apply new patch for 12 hours on the site and 12 hours off the site. Location: right lower back. gabapentin (NEURONTIN) 100 mg capsule Take 3 capsules by mouth daily at bedtime for 180 days. benzonatate (TESSALON PERLE) 100 mg capsule Take 1-2 capsules by mouth three times a day as needed for cough. amLODIPine (NORVASC) 5 mg tablet Take 1 tablet by mouth once daily. cyclobenzaprine (FLEXERIL) 5 mg tablet Take 1 tablet by mouth three times a day as needed for muscle spasm. ipratropium-albuterol (DUONEB) 0.5 mg-3 mg(2.5 mg base)/3 [...] Take 1 tablet by mouth twice daily. diclofenac (VOLTAREN) 1 % topical gel Apply 2 g to affected area four times daily. (Patient not taking: Reported on 05/21/2024) No current facility-administered medications for this visit. [...] IN KNEE Detrol [Tolterodine* Intolerance HEAD ACHE (more content not included)... Normal [facility] Comprehensive metabolic 2000 panelon 09-24-2024 Albumin [Mass/Vol] 4.0 g/dL Normal 3.9-4.9 [facility] Comment on above: Order Comment: Speci men Type: BLOOD SPECIMENOrdering Facility: [facility] Address: [address] [place] [address] Performed By: #### 3 016-3, 75612-9, LIPNF ####[facility] LABCLIA [id number] [place] [address] [place] ALP [Catalytic activity/Vol] 71 U/L Normal 34-123 [facility] Comment on above: Order Comment: Speci men Type: BLOOD SPECIMENOrdering Facility: [facility] Address: [address] [place] [address] Performed By: #### 3 016-3, 35065-4, LIPNF ####[facility] LABCLIA [id number] [place] [id number] [place] ALT [Catalytic activity/Vol] 32 U/L Normal 7-38 [facility] Comment on above: Order Comment: Speci men Type: BLOOD SPECIMENOrdering Facility: [facility] Address: [address] [place] [address] Performed By: #### 3 016-3, , LIPNF ####[facility] LABCLIA [id number] [place] [address] [place] Anion gap [Moles/Vol] 12 mmol/L Normal 8-15 [facility] Comment on above: Order Comment: Speci men Type: BLOOD SPECIMENOrdering Facility: [facility] Address: [address] [place] [address] Performed By: #### 3 016-3, , LIPNF ####[facility] LABCLIA [id number] [place] [address] [place] AST [Catalytic activity/Vol] 28 U/L Normal 13-35 [facility] Comment on above: Order Comment: Speci men Type: BLOOD SPECIMENOrdering Facility: [facility] Address: [address] [place] [address] Performed By: #### 3 016-3, , LIPNF ####[facility] LABCLIA [id number] [place] [id number] [place] Bilirubin [Mass/Vol] 0.4 mg/dL Normal 0.2-1.3 [facility] Comment on above: Order Comment: Speci men Type: BLOOD SPECIMENOrdering Facility: [facility] Address: [address] [place] [address] Performed By: #### 3 016-3, , LIPNF ####[facility] LABCLIA [id number] [facility] [place] [id number] [place] Calcium [Mass/Vol] 10.1 mg/dL Normal 8.5-10.2 [facility] Comment on above: Order Comment: Speci men Type: BLOOD SPECIMENOrdering Facility: [facility] Address: [address] [place] [address] Performed By: #### 3 016-3, 71139-1, LIPNF ####[facility] LABCLIA [id number] [place] [id number] [place] Chloride [Moles/Vol] 104 mmol/L Normal 98-107 [facility] Comment on above: Order Comment: Speci men Type: BLOOD SPECIMENOrdering Facility: [facility] Address: [address] [place] [address] Performed By: #### 3 016-3, 61590-0, LIPNF ####[facility] LABCLIA [id number] [place] [address] [place] CO2 [Moles/Vol] 23 mmol/L Normal 22-30 [facility] Comment on above: Order Comment: Speci men Type: BLOOD SPECIMENOrdering Facility: [facility] Address: [address] [place] [address] Performed By: #### 3 016-3, 49817-7, LIPNF ####[facility] LABCLIA [id number] [place] [address] [place] Creatinine [Mass/Vol] 0.69 mg/dL Normal 0.58-0.96 [facility] Comment on above: Order Comment: Speci men Type: BLOOD SPECIMENOrdering Facility: [facility] Address: [address] [place] [address] Performed By: #### 3 016-3, 40005-6, LIPNF ####[facility] LABCLIA [id number] [place] [address] [place] Creatinine and Glomerular filtration rate.predicted panel (S/P/Bld) 91 mL/min/1.73m??? Normal >=60 [facility] Comment on above: Order Comment: Speci men Type: BLOOD SPECIMENOrdering Facility: [facility] Address: [address] [place] [address] Result Comment: Savana mated Glomerular Filtration Rate [...] actual GFR. Performed By: #### 3 016-3, 29234-0, LIPNF ####[facility] LABIA [id number] [place] [address] [place] Glucose [Mass/Vol] 151 mg/dL High 74-99 [facility] Comment on above: Order Comment: Speci men Type: BLOOD SPECIMENOrdering Facility: [facility] Address: [address] [place] [address] Result Comment: The [place] Diabetes Association (ADA) provides guidance for cutoff [...] Standards of Medical Care in Diabetes 2016, [place] Diabetes Association. Diabetes Care. 2016.39(Suppl 1). Performed By: #### 3 016-3, 48860-0, LIPNF ####[facility] LABW[facility] [id number] [place] [address] [place] Potassium [Moles/Vol] 4.5 mmol/L Normal 3.7-5.1 [facility] Comment on above: Order Comment: Speci men Type: BLOOD SPECIMENOrdering Facility: [facility] Address: [address] [place] [address] Performed By: #### 3 016-3, , LIPNF ####[facility] LABCLIA [id number] [address] [place] [address] [place] Protein [Mass/Vol] 7.7 g/dL Normal 6.3-8.0 [facility] Comment on above: Order Comment: Speci men Type: BLOOD SPECIMENOrdering Facility: [facility] Address: [address] [place] [address] Performed By: #### 3 016-3, , LIPNF ####[facility] LABIA [id number] [address] [address] [place] Sodium [Moles/Vol] 139 mmol/L Normal 136-144 [facility] Comment on above: Order Comment: Speci men Type: BLOOD SPECIMENOrdering Facility: [facility] Address: [address] [place] [address] Performed By: #### 3 0163, , LIPNF ####[facility] LABIA [id number] [address] [address] [place] Urea nitrogen [Mass/Vol] 18 mg/dL Normal 7-21 [facility] Comment on above: Order Comment: Speci men Type: BLOOD SPECIMENOrdering Facility: [facility] Address: [address] [place] [address] Performed By: #### 3 016-3, , LIPNF ####[facility] LABIA [id number] [address] [address] [place] HbA1c (Bld)on 09-24-2024 Average glucose Estimated from glycated hemoglobin (Bld) [Mass/Vol] 169 mg/dL Normal [facility] Comment on above: Order Comment: Speci men Type: BLOOD SPECIMENOrdering Facility: [facility] Address: [address] [place] [address] Result Comment: eAG: (Estimated average glucose) is a calculated value from HgbA1c and is patient accounting representative of the average blood glucose level in the last 2-3 month period. Performed By: #### 5 5454-3 ####[facility] LABCLIA [id number] [place] [address] [place] HbA1c (Bld) [Mass fraction] 7.5 % High 4.3-5.6 [facility] Comment on above: Order Comment: Speci men Type: BLOOD SPECIMENOrdering Facility: [facility] Address: [address] [place] [address] Result Comment: Amer [place] Diabetes Association guidelines indicate that patients with HgbA1c in the range 5.7-6.4% are at increased risk for development of diabetes, and intervention by lifestyle modification may be beneficial. HgbA1c greater or equal to 6.5% is considered diagnostic of diabetes. Performed By: #### 5 5454-3 ####[facility] LABCLIA [id number] [place] [address] [place] LIPID PANEL, NONFASTINGon Cholesterol [Mass/Vol] 184 mg/dL Normal <[address] [facility] Comment on above: Order Comment: Speci men Type: BLOOD SPECIMENOrdering Facility: [facility] Address: [address] [place] [address] Result Comment: <200 mg/dL, Desirable 200-239 mg/dL, Borderline high >239 mg/dL, High Performed By: #### 3 016-3, 19809-2, LIPNF ####[facility] LABCLIA [id number] [place] [address] [place] HDL CHOLESTEROL, NF 69 mg/dL Normal >39 [facility] Comment on above: Order Comment: Speci men Type: BLOOD SPECIMENOrdering Facility: [facility] Address: [address] [place] [address] Result Comment: 40-5 9 mg/dL, Acceptable >59 mg/dL, High: Negative risk factor for coronary heart disease <40 mg/dL, Low: Positive risk factor for coronary heart disease Performed By: #### 3 016-3, 80213-8, LIPNF ####[facility] LABIA [id number] [place] [id number] [place] LDL CHOLESTEROL CALCULATED, NF 103 mg/dL High <100 [facility] Comment on above: Order Comment: Speci men Type: BLOOD SPECIMENOrdering Facility: [facility] Address: [address] [place] [address] Result Comment: <100 mg/dL, Optimal 100-129 mg/dL, Near optimal/above optimal 130-159 mg/dL, Borderline high 160-189 mg/dL, High >189 mg/dL, Very high Secondary prevention optimal LDL Cholesterol levels are recommended to be <70 mg/dL LDL cholesterol is calculated using the Hzeng-NIH equation. Performed By: #### 3 016-3, 89679-7, LIPNF ####[facility] [id number] [place] [address] [place] LDL/HDL RATIO, NF 1.49 mg/dL Normal <2.54 [facility] Comment on above: Order Comment: Irenei men Type: BLOOD SPECIMENOrdering Facility: [facility] Address: [address] [place] [address] Result Comment: Dc cabezas: 1. National Cholesterol Education Program ATP III Guideline At-A-Glance Quick Desk Reference: National Heart, Lung, and Blood [place]. National Institutes of Health. 2001: NIH Publication No. 01-3305. 2. An International Atherosclerosis Society position paper: global recommendations for the management of dyslipidemia: executive summary, Atherosclerosis. 2014: 232(2):410-413. Performed By: #### 3 016-3, 62736-7, LIPNF ####[facility] [id number] [address] [place] NON HDL CHOL, NF 115 mg/dL Normal <130 [facility] Comment on above: Order Comment: Epi diogo Type: BLOOD SPECIMENOrdering Facility: [facility] Address: [address] [place] [address] Result Comment: <130 mg/dL, Optimal 130-159 mg/dL, Near optimal/above optimal 160-189 mg/dL, Borderline high 190-219 mg/dL, High >219 mg/dL, Very high Secondary prevention optimal non HDL Cholesterol levels are recommended to be <100 mg/dL Performed By: #### 3 016-3, 35321-6, LIPNF ####[facility] LABCLIA [id number] [place] [id number] [place] T CHOL/HDL RATIO NF 2.67 mg/dL Normal <5.10 [facility] Comment on above: Order Comment: Speci men Type: BLOOD SPECIMENOrdering Facility: [facility] Address: [address] [place] [address] Performed By: #### 3 016-3, 59349-2, LIPNF ####[facility] LABCLIA [id number] [place] [address] [place] TRIGLYCERIDES, NF 66 mg/dL Normal <150 [facility] Comment on above: Order Comment: Speci men Type: BLOOD SPECIMENOrdering Facility: [facility] Address: [address] [place] [address] Result Comment: <150 mg/dL, Normal 150-199 mg/dL, Borderline high 200-499 mg/dL, High >499 mg/dL, Very high Performed By: #### 3 016-3, 83544-4, LIPNF ####[facility] LABCLIA [id number] [place] [address] [place] VLDL CHOLESTEROL, NF 11 mg/dL Normal <30 [facility] Comment on above: Order Comment: Speci men Type: BLOOD SPECIMENOrdering Facility: [facility] Address: [address] [place] [address] Performed By: #### 3 016-3, 21728-5, LIPNF ####[facility] LABCLIA [id number] [place] [id number] [place] TSH SerPl-aCncon 09-24-2024 TSH Qn 0.626 m[IU]/L Normal 0.270-4.20 0 [facility] Comment on above: Order Comment: Speci men Type: BLOOD SPECIMENOrdering Facility: [facility] Address: [address] [place] [address] Performed By: #### 3 016-3, 52908-2, LIPNF ####[facility] LABCLIA [id number] ELVIE CHRISTENSEN [address] CNPNon 08-25-2024 CNPN Telephone (INTMWS) ----- KESHIA ROJAS ([id number]) 1950 F Date Time Provider Department 08/25/24 PAULO SCOTT INTWS During your visit today, we recorded the following information about you: Shae Palencia RN 08/25/2024 4:48 PM Signed Patient calls to ask why insurance is no longer covering the cost of her valium. Patient reports that the cost last month was $1.05 and this month $13. Recommended she contact the insurance company for this question as they will be able to better assist her with questions about insurance coverage. Patient to call back once she has spoke with insurance if she doesn't want to pay the cost of the valium monthly. Shae Palencia RN Allergies As of Date: 08/25/2024 Noted Allergy Reaction ADHESIVE 02/12/2023 2 - Rash Comments: ECG patch made skin red and raw; needs hypoallergenic patches for ECG and other testing needing patches AGGRENOX (ASPIRIN-DIPYRIDAMOLE) 05/27/2011 14 - Other: See Comments Comments: Headache BACTRIM (SULFAMETHOXAZOLE-TRIMETH *03/20/2006 Comments: dizzy, redness, face flushed BETADINE (POVIDONE-IODINE) 11/04/2006 2 - Rash CETACAINE (YCHZOLFU-BHCSRLNADU-BK*0 09/11/2012 14 - Other: See Comments Comments: [...] mandibular pain, lymphadenopathy, possible angio edema per [facility] ER note 04/24/2022 MECLIZINE 03/07/2006 7 - [...] HYDROGEN RACHELL*03/07/2006 4 - Hives Date Reviewed: 05/21/2024 Reviewed by: Juan Rodriguez APRN.JEWEL SORTER - Fully Assessed Reason for Visit: Medication Problem [65] Prescriptions as of 08/25/2024 - lidocaine (LIDODERM) 5 % Apply 1 patch as directed once daily. Remove old patch after wearing for 12 hours and then 12 hours later apply new patch for 12 hours on the site and 12 hours off the site. Location: right lower back. - gabapentin (NEURONTIN) 100 mg capsule Take 3 capsules by mouth daily at bedtime for 180 days. - diazePAM (VALIUM) 5 mg tablet Take 1 tablet by mouth at bedtime as needed (vertigo or anxiety) for up to 180 days. Patient should start on March 25, 2024. - benzonatate (TESSALON PERLE) 100 mg capsule Take 1-2 capsules by mouth three times a day as needed for cough. - levothyroxine (SYNTHROID) 88 mcg tablet Take [...] day as needed for muscle spasm. - ipratropium-albuterol (DUONEB) 0.5 mg-3 mg(2.5 mg base)/3 mL nebu Inhale 3 mL as instructed every 6 hours. Unit dose pack. dr Park pulmonology. - spironolactone (ALDACTONE) 25 mg tablet Take 1 tablet by mouth once daily. - aspirin, enteric coated (ASPIRIN, ENTERIC COATED) [...] arthritis - multivitamin ORAL tablet Take 1 (more content not included)... Normal [facility] Emergency Department Summary on 08-22-2024 Emergency Department Summary [facility] Medical Records Department [address] [place] [address] Emergency Department Summary 08/22/24 MR#: [id number] Acct: [id number] Name: KESHIA ROJAS Rep #: [id number] : 1950 74 From: Deepak Mendez MD PCP: Dr. Paulo Scott MD Status:REG ER Location: ED HPI History of Present Illness Chief Complaint: Weakness Informant: patient and family Narrative Narrative: 74-year-old female with left back and posterior hip/buttock pain that radiates into her left thigh, this has been going on for some time so she had another back injection with pain management Dr. Paz 3 days ago, then she worked yesterday and was on her feet all day, pain gradually became worse, now is to the point where she is having trouble bearing weight and walking on it. She denies any new symptoms. No bowel or bladder dysfunction. No numbness. She has chronic peripheral neuropathy in her feet that feels like burning pain but not numb. That is no different. She states that she puts pressure on a point in her left buttock, it relieves the pain until she lets go. She denies any fevers or chills. She is on no anticoagulants just baby aspirin. [facility] Medical History Loss of hearing Wears glasses Wears partial dentures Post-menopausal Anxiety Thyroid disease Ambulates with cane Urinary incontinence Difficulty swallowing Gastric reflux Non-smoker History of echocardiogram History of stress test Seasonal allergies Hoarseness Leg cramps History of edema Shortness of breath on exertion Cardiology follow-up encounter History of cataract Ganglion cyst Atherosclerotic heart disease of [place] coronary artery without angina pectoris Cholelithiasis with [...] capsule 300 mg PO QHS 01/11/14 05/05/22 Hi story diazepam 5 mg tablet 5 mg PO QHS PRN anxiety 01/13/19 0 05/05/22 History aspirin 81 mg tablet,delayed 81 mg PO DAILY@0800 02/09/1905/05 History release multivitamin 1 tab PO DAILY 04/08/19 05/05/22 H istory cholecalciferol (vitamin D3) 125 125 mcg PO DAILY 10/11/19 05/05/22 History mcg (5,000 unit) capsule inhalational spacing device #1 ea 10/11/19 Unknown Rx (BreatheRite MDI Spacer) acetaminophen 500 mg capsule 500 mg PO Q6H PRN Pain 05/05/22 Un known History levothyroxine 88 mcg tablet 88 mcg PO DAILY 07/26/22 04/23/23 History ipratropium 0.5 mg-albuterol 3 mg 3 ml inhalation Q4H PRN PRN SOB 0 10/02/22 Unknown Rx (2.5 mg base)/3 mL nebulization /OR WHEEZING #180 mL soln amlodipine 5 mg tablet 2.5 mg PO DAILY 01/31/23 04/23/23 History cranberry fruit concentrate 250 mg 250 mg PO DAILY 01/31/23 Unknown History chewable tablet (Azo Cranberry) pantoprazole 40 mg tablet,delayed 40 mg PO BID 90 days #180 tabs Unknown Rx release spironolactone 25 mg tablet 25 mg PO 1700 PRN 08/15/23 Unknown History budesonide 0.5 mg/2 mL suspension 0.5 mg (2 mL) inhalation Q12H #12 0 10/15/23 Unknown Rx for nebulization mL hydrocortisone 2.5 % topical cream 1 applic topical QDAY 12/01/23 U nknown History with perineal applicator lactulose 20 gram/30 mL oral 20 g (30 mL) PO QHS 90 days #2,700 02/20/24 Unknown Rx solution mL benzonatate 100 mg capsule 100 - 200 mg PO TID PRN cough 02/15 10/07 Unknown History oxycodone-acetaminophen 5 mg-325 1 tab PO Q6H PRN PRN Pain 3 days 0 08/22/24 Unknown Rx mg tablet #12 TABLETS Allergy/AdvReac Type Severity Reaction Status Date / Time latex Allergy Unknown PT UNSURE Verified 08/22/24 15:21 OF REACTION adhesive Allergy Unknown Verified 08/22/24 15:21 benzocaine (From Cetacaine) Allergy Unknown Verified 08/22/24 15:21 butamben (From Cetacaine) Allergy Vomiting Verified 08/22/24 15:21 cortisone (Cortisone) Allergy Unknown Verified 08/22/24 15:21 dipyridamole (From Aggrenox) Allergy Unknown Verified 08/22/24 15:21 lansoprazole (From Prevacid) Allergy Unknown Verified 08/22/24 15:21 meclizi (more content not included)... Normal [facility] Gastroenterology Visit Repor ton 06-18-2024 Gastroenterology Visit Report [facility] Gastroenterology [address] [place] [address] OFFICE VISIT Date of Service: 06/18/24 MR#: [id number] Acct: [id number] Name: NANCI,KESHIA SAHNI Rep #: [id number] : 1950 Provider: Raul Casper DO Age/Sex: 74/F Location: [facility] [place] Status: Signed Intake Vital Signs 04/08/24 09:50 [...] cataract Ganglion cyst Atherosclerotic heart disease of [place] coronary artery without angina pectoris Cholelithiasis with chronic cholecystitis Cholecystitis Pancreatitis, gallstone Galls (more content not included)... Normal [facility] HIP, UNI W/ Pelvis 2-3 Views on 06-18-2024 HIP, UNI W/ Pelvis 2-3 Views [facility] Imaging Services [address] [place], [place] [id number] HIP, UNI W/ Pelvis 2-3 Views MR#: [id number] Acct: [id number] Name: KESHIA ROJAS Rep #: [id number] : 1950 F 74 From: Davon Epstein MD PCP: Dr. Paulo Scott MD Status: DEP AMB Study: HIP, UNI W/ Pelvis 2-3 Views Date of Exam: 07/09 Exam# [id number] Ordering Dr: Callum Trimble DO PROCEDURE: HIP, [...] significant appearing joint space narrowing. Reading Location: CYR-CSUQAME-RC CC: Dr. Callum Trimble DO; Dr. Paulo Scott MD Media Services Director: Signed Normal [facility] Lumbar Spine 2 or 3 Viewson 06-18-2024 Lumbar Spine 2 or 3 Views [facility] [address] [place], [place] [address] Lumbar Spine 2 or 3 Views MR#: [id number] Acct: [id number] Name: KESHIA ROJAS Rep #: [id number] : 1950 F 74 From: Davon Epstein MD PCP: Dr. Paulo Scott MD Status: DEP AMB Study: Lumbar Spine 2 or 3 Views Date of Exam: Exam# [id number] Ordering Dr: Callum Trimble DO PROCEDURE: LUMBAR SPINE 2 OR 3 VIEWS 06/18/2024 REASON FOR EXAM: LOW BACK PAIN, RADIATED TO LEFT HIP TECHNIQUE: 2 view(s) of the lumbar spine FINDINGS: 5 xcx-wdg-iltubna lumbar vertebral body types identified. A moderate rightward curvature with apex L4-5. No fracture identified. Zkxwgbkw-uu-lwywdq disc space narrowing L4-5 with approximately 6-7 mm of anterolisthesis L4 on 5 and 6 mm of right lateral listhesis L4 on 5. 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 RAD/Lumbar Spine 2 or 3 Views IMPRESSION: A moderate rightward curvature with apex L4-5. No fracture identified. Qnpztmee-sz-eeptqh disc space narrowing L4-5 with approximately 6-7 mm of anterolisthesis L4 on 5 and 6 mm of right lateral listhesis L4 on 5. 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 Reading Location: DIV-TWNIGBY-TS CC: Dr. Callum Trimble DO; Dr. Paulo Scott MD Media Services Director: Signed Normal [facility] Orthopedic Visit Reporton Orthopedic Visit Report [facility] [address] [place] [address] OFFICE VISIT Date of Service: 06/18/24 MR#: [id number] Acct: [id number] Name: KESHIA ROJAS Rep #: [id number] : 1950 Provider: Dr. Callum molina DO Age/Sex: 74/F Location: [facility] [place] Status: Signed Intake Vital Signs 04/08/24 09:50 [...] cataract Ganglion cyst Atherosclerotic heart disease of [place] coronary artery without angina pectoris Cholelithiasis with chronic cholecystitis Chol (more content not included)... Normal [facility] Shoulder min 2 Viewson 05-26 Shoulder min 2 Views [facility] Imaging Services [address] [place], [place] [address] Shoulder min 2 Views MR#: [id number] Acct: [id number] Name: KESHIA ROJAS Rep #: [id number] : 1950 F 74 From: Venkata cedeño MD PCP: Dr. Paulo Scott MD Status: REG CLI Study: Shoulder min 2 Views Date of Exam: 05/26/24 Exam# [id number] Ordering Dr: Crystal Paz MD PROCEDURE: SHOULDER [...] of the proximal left humerus. Reading Location: [facility] CC: Dr. Crystal Paz MD; Dr. Paulo Scott MD Media Services Director: Signed [facility] CNOVon 05-21-2024 CNOV Office Visit (INTMWS ) ----- KESHIA ROJAS ([id number]) 1950 F Date Time Provider Department 05/21/24 1:20 PM JUAN RODRIGUEZ INTMWS During your visit today, we recorded the following information about you: Pulse Respiration Blood pressure Weight 76/minute 16/minute 128/82 92 kg Juan Rodriguez, ELECTRONIC CALIBRATION TECHNICIAN.JEWEL SORTER 05/24/2024 7:54 AM Signed SUBJECTIVE: Shingrix Vaccine(2 [...] and oriented to person, place, and time. 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 ALLERGIES Allergen Reactions Adhesive Rash [...] mandibular pain, lymphadenopathy, possible angio edema per [facility] ER note 04/24/2022 Meclizine Swelling URI (more content not included)... Normal [facility] Orthopedic Visit Reporton Orthopedic Visit Report [facility] [address] [place] [address] OFFICE VISIT Date of Service: 04/16/24 MR#: [id number] Acct: [id number] Name: KESHIA ROJAS Rep #: [id number] : 1950 Provider: Dr. Callum Woodall so, DO Age/Sex: 74/F Location: [facility] [place] Status: Signed Intake Vital Signs 03/12/24 10:36 [...] cataract Ganglion cyst Atherosclerotic heart disease of [place] coronary artery with (more content not included)... Normal [facility] Orthopedic Visit Reporton Orthopedic Visit Report [facility] [address] [place] [address] [address] [place] [address] OFFICE VISIT Date of Service: 04/09/24 MR#: [id number] Acct: [id number] Name: KESHIA ROJAS Rep #: [id number] : 1950 Provider: Dr. Callum molina DO Age/Sex: 74/F Location: [facility] [place] Status: Signed Intake Vital Signs 03/12/24 10:36 [...] cataract Ganglion cyst Atherosclerotic heart disease of [place] coronary artery without angina pectoris Cholelithiasis with c (more content not included)... Normal [facility] Enterography Abd/Brody 04-08 Enterography Abd/Pel [facility] Imaging Services [address] [place] [address] Enterography Abd/Pel MR#: [id number] Acct: [id number] Name: KESHIA ROJAS Rep #: [id number] : 1950 F 74 From: Lawson umanzor MD PCP: Dr. Paulo Scott MD Status: REG CLI Study: Enterography Abd/Pel Date of Exam: 04/08/24 Exam# [id number] Ordering Dr: Raul Casper DO [id number] STUDY: MR ENTEROGRAPHY WITH CONTRAST REASON FOR [...] 12:44 EST Reading Location ID and State: [address] [place] [address] , Service support , CC: Dr. Paulo Scott MD; Raul Casper, Media Services Director: Signed Normal [facility] Orthopedic Visit Reporton Orthopedic Visit Report [facility] [address] [place] [address] OFFICE VISIT Date of Service: 04/02/24 MR#: [id number] Acct: [id number] Name: KESHIA ROJAS Rep #: [id number] : 1950 Provider: Dr. Callum molina DO Age/Sex: 74/F Location: [facility] [place] Status: Signed Intake Vital Signs 03/12/24 10:36 [...] you fallen in the past year?: No [employer] Medical History Loss of hearing Wears glasses Wears partial dentures Post-menopausal Anxiety Thyroid disease Ambulates with cane Urinary incontinence Difficulty swallowing Gastric reflux Non-smoker History of echocardiogram History of stress test Seasonal allergies Hoarseness Leg cramps History of edema Shortness of breath on exertion Cardiology follow-up encounter History of cataract Ganglion cyst Atherosclerotic heart disease of nativ (more content not included)... Normal [facility] Knee 4 or More Viewson 03-12 Knee 4 or More Views [facility] [address] [place] [address] Knee 4 or More Views MR#: [id number] Acct: [id number] Name: KESHIA ROJAS Rep #: [id number] : 1950 F 74 From: Jose R Quintero MD PCP: Dr. Paulo Scott MD Status: DEP [facility] Study: Knee 4 or More Views Date of Exam: 03/12/24 Exam# [id number] Ordering Dr: Callum Trimble DO [id number] INDICATION: Pain EXAMINATION/TECHNIQUE: X-RAY - RIGHT XR [...] Callum Trimble DO; Dr. Paulo Scott MD Media Services Director: Signed Normal [facility] Orthopedic Visit Reporton Orthopedic Visit Report [facility] [address] [place] [address] [address] [place] [address] OFFICE VISIT Date of Service: 03/12/24 MR#: [id number] Acct: [id number] Name: KESHIA ROJAS Rep #: [id number] : 1950 Provider: Dr. Callum molina DO Age/Sex: 74/F Location: [facility] [place] Status: Signed Intake Vital Signs 01/14/24 10:44 [...] heart di (more content not included)... Normal [facility] FORTUNATO SCREENING W TOMOon 03-05 FORTUNATO SCREENING W MITCHELL * * *Final Report* * * DATE OF EXAM: Mar 05 2024 1:29PM GERARDW 0582 - FORTUNATO SCREENING W MITCHELL / PROCEDURE REASON: Encounter for screening mammogram for breast cancer * * * * Physician Interpretation * * * * RESULT: [address] [address] [place] [address] #[id number] - FORTUNATO SCREENING W MITCHELL HISTORY: Patient is 74 [...] Emeterio Aguirre M.D. Electronically signed on: 03/08/2024 Media Services Director: FREDDIE Transcribe Date/Time: Mar 05 2024 1:16P Dictated by: EMETERIO AGUIRRE MD This examination was interpreted and the report reviewed and electronically signed by: EMETERIO AGUIRRE MD on Mar 08 2024 9:09AM EST [id number] Normal [facility] Gastroenterology Visit Repor ton 02-20-2024 Gastroenterology Visit Report [facility] Gastroenterology [address] [place] [address] OFFICE VISIT Date of Service: 02/20/24 MR#: [id number] Acct: [id number] Name: KESHIA ROJAS Rep #: [id number] : 1950 Provider: Raul Casper DO Age/Sex: 73/F Location: [facility] [place] Status: Signed with Addenda ADDENDUM by Raul [...] allergies Hoarsenes (more content not included)... Normal [facility] Orthopedic Visit Reporton Orthopedic Visit Report [facility] [address] [place] [address] OFFICE VISIT Date of Service: 01/30/24 MR#: [id number] Acct: [id number] Name: KESHIA ROJAS Rep #: [id number] : 1950 Provider: Dr. Callum Woodall so, DO Age/Sex: 73/F Location: [facility] [place] Status: Signed Intake Vital Signs 11/18/23 18:05 [...] cataract Ganglion cyst Atherosclerotic heart disease of [place] coronary artery without angina pectoris Cholelithiasis with [...] walking frequenc (more content not included)... [facility] ----- KESHIA ROJAS ([id number]) 1950 F Date Time Provider Department 01/23/24 1:20 PM NORMAN GARCIA INTMWS During your visit today, we recorded the following information about you: Temperature Pulse Blood pressure Weight 97 degrees 80/minute 128/78 90.4 kg Norman Garcia APRN.CNP 01/23/2024 1:50 PM Signed SUBJECTIVE Keshia Rojas [...] mandibular pain, lymphadenopathy, possible angio edema per [facility] ER note 04/24/2022 Meclizine Swelling URINARY RETENTION,FACE FELT FUNNY Metoprolol GI Upset headache.itching.hives. Myrbetriq [Mirabegr* Other: See Comments elevated BP Prevacid [Lansopraz* GI Upset GAS,BURPING HEADACHE Prilosec [Omeprazol* Diarrhea Tape [Adhesive Tape* Rash Paper tape Tizanidine Other: See Comments increased pain Zelnorm [Tegaserod * Hives ACTIVE PROBLEM LIST 1) Laparotomy 2) Joann gastroplasty 3) Wedge the ga (more content not included)... Normal [facility] COVID AND INFLUENZA A/B AND RSV PCR, ROUTINEon 01-23-2024 SARS-CoV-2 (COVID-19) RNA ELIN+probe Ql (Unsp spec) SARS-COV-2 (AGENT OF COVID-19) RNA: Not detected INFLUENZA A RNA: Not detected INFLUENZA B RNA: Not detected RESPIRATORY SYNCYTIAL VIRUS (RSV) RNA: Not detected Normal [facility] Comment on above: Performed By: #### C VFLRS ####[facility] LABCLIA [id number] [place] [id number] [place] Orthopedic Visit Reporton Orthopedic Visit Report [facility] [address] [place] [address] [address] [place] [address] OFFICE VISIT Date of Service: 01/23/24 MR#: [id number] Acct: [id number] Name: KESHIA ROJAS Rep #: [id number] : 1950 Provider: Dr. Callum Woodall so, DO Age/Sex: 73/F Location: [facility] [place] Status: Signed Intake Vital Signs 11/18/23 18:05 [...] the past year?: No (Did not ask) [facility] Medical History Loss of hearing Wears glasses Wears partial dentures Post-menopausal Anxiety Thyroid disease Ambulates with cane Urinary incontinence Difficulty swallowing Gastric reflux Non-smoker History of echocardiogram History of stress test Seasonal allergies Hoarseness Leg cramps History of edema Shortness of breath on exertion Cardiology follow-up encounter History of cataract Ganglion cyst Atherosclerotic heart disease of [place] coronary artery without angina pectoris Cholelithiasis with chronic cholecys (more content not included)... Normal [facility] Orthopedic Visit Reporton Orthopedic Visit Report [facility] [address] [place] [address] OFFICE VISIT Date of Service: 01/16/24 MR#: [id number] Acct: [id number] Name: KESHIA ROJAS Rep #: [id number] : 1950 Provider: Dr. Callum molina, DO Age/Sex: 73/F Location: [facility] [place] Status: Signed Intake Vital Signs 11/18/23 18:05 [...] disease o (more content not included)... Normal [facility] Orthopedic Visit Reporton Orthopedic Visit Report [facility] [address] [place] [address] [place] [address] OFFICE VISIT Date of Service: 12/26/23 MR#: [id number] Acct: [id number] Name: KESHIA ROJAS Rep #: [id number] : 1950 Provider: Dr. Callum Woodall so, DO Age/Sex: 73/F Location: [facility] [place] Status: Signed Intake Vital Signs 11/18/23 18:05 [...] Rash varicella-zoster virus glycoprotein E, recombinant (From [employer] (PF)) Adverse Reaction (Verified 12/26/23 10:00) Rash [...] cataract Ganglion cyst Atherosclerotic heart disease of [place] coronary artery with (more content not included)... Normal [facility] Orthopedic Visit Reporton Orthopedic Visit Report [facility] [address] [place] [address] OFFICE VISIT Date of Service: 12/01/23 MR#: [id number] Acct: [id number] Name: KESHIA ROJAS Rep #: [id number] : 1950 Provider: Dr. Callum Woodall so, DO Age/Sex: 73/F Location: [facility] [place] Status: Signed Intake Vital Signs 11/18/23 18:05 [...] cataract Ganglion cyst Atherosclerotic heart disease of [place] coronary artery without angina pectoris Cholelithiasis with chronic cholecystitis Cholecystitis Pancreatit (more content not included)... Normal [facility] 25(OH)D3 [facility] 2023 25-hydroxyvitamin D3 [Mass/Vol] 74.7 ng/mL Normal 31.0-80.0 [facility] Comment on above: Order Comment: Speci men Type: BLOOD SPECIMENOrdering Facility: [facility] Address: [address] [place] [address] Result Comment: Clas sification of 25 [place] Vitamin D status: Deficiency/Insufficiency: < or = 30 ng/ml. Sufficiency/Optimal Levels: 31-80 ng/mL Toxicity: > 100 ng/mL. Test performed by chemiluminescent immunoassay. Performed By: #### 1 989-3 ####[facility] LABCLIA [id number] [place] [address] [place] Comprehensive metabolic 2000 panelon 11-28-2023 Albumin [Mass/Vol] 3.9 g/dL Normal 3.9-4.9 [facility] Comment on above: Order Comment: Speci men Type: BLOOD SPECIMENOrdering Facility: [facility] Address: [address] [place] [address] Performed By: #### 2 4331-1, 35522-9 ####[facility] LABCLIA [id number] [place] [address] [place] ALP [Catalytic activity/Vol] 64 U/L Normal 34-123 [facility] Comment on above: Order Comment: Speci men Type: BLOOD SPECIMENOrdering Facility: [facility] Address: [address] [place] [address] Performed By: #### 2 4331-1, 47421-9 ####[facility] LABCLIA [id number] [address] [address] [place] ALT [Catalytic activity/Vol] 30 U/L Normal 7-38 [facility] Comment on above: Order Comment: Speci men Type: BLOOD SPECIMENOrdering Facility: [facility] Address: [address] [place] [address] Performed By: #### 2 4331-1, ####[facility] LABCLIA [id number] [place] [id number] [place] Anion gap [Moles/Vol] 9 mmol/L Normal 8-15 [facility] Comment on above: Order Comment: Speci men Type: BLOOD SPECIMENOrdering Facility: [facility] Address: [address] [place] [address] Performed By: #### 2 4331-1, ####[facility] LABCLIA [id number] [place] [address] [place] AST [Catalytic activity/Vol] 23 U/L Normal 13-35 [facility] Comment on above: Order Comment: Speci men Type: BLOOD SPECIMENOrdering Facility: [facility] Address: [address] [place] [address] Performed By: #### 2 4331-1, 44458-6 ####[facility] LABCLIA [id number] [place] [id number] [place] Bilirubin [Mass/Vol] 0.5 mg/dL Normal 0.2-1.3 [facility] Comment on above: Order Comment: Speci men Type: BLOOD SPECIMENOrdering Facility: [facility] Address: [address] [place] [address] Performed By: #### 2 4331-1, 81918-2 ####[facility] LABCLIA [id number] [place] [id number] [place] Calcium [Mass/Vol] 9.6 mg/dL Normal 8.5-10.2 [facility] Comment on above: Order Comment: Speci men Type: BLOOD SPECIMENOrdering Facility: [facility] Address: [address] [place] [address] Performed By: #### 2 4331-1, ####[facility] LABCLIA [id number] [place] [address] [place] Chloride [Moles/Vol] 104 mmol/L Normal 98-107 [facility] Comment on above: Order Comment: Speci men Type: BLOOD SPECIMENOrdering Facility: [facility] Address: [address] [place] [address] Performed By: #### 2 4331-, ####[facility] LABCLIA [id number] [place] [address] [place] CO2 [Moles/Vol] 27 mmol/L Normal 22-30 [facility] Comment on above: Order Comment: Speci men Type: BLOOD SPECIMENOrdering Facility: [facility] Address: [address] [place] [address] Performed By: #### 2 4331-, ####[facility] LABCLIA [id number] [place] [address] [place] Creatinine [Mass/Vol] 0.72 mg/dL Normal 0.58-0.96 [facility] Comment on above: Order Comment: Speci men Type: BLOOD SPECIMENOrdering Facility: [facility] Address: [address] [place] [address] Performed By: #### 2 4331-1, ####[facility] LABCLIA [id number] [place] [id number] [place] Creatinine and Glomerular filtration rate.predicted panel (S/P/Bld) 88 mL/min/1.73m??? Normal >=60 [facility] Comment on above: Order Comment: Epi lind Type: BLOOD SPECIMENOrdering Facility: [facility] Address: [address] [place] [address] Result Comment: Savana mated Glomerular Filtration Rate [...] reflect actual GFR. Performed By: #### 2 4331-1, 47168-4 ####[facility] LABIA [id number] [place] [address] [place] Glucose [Mass/Vol] 126 mg/dL High 74-99 [facility] Comment on above: Order Comment: Epi lind Type: BLOOD SPECIMENOrdering Facility: [facility] Address: [address] [place] [address] Result Comment: The [place] Diabetes Association (ADA) provides guidance for cutoff [...] Standards of Medical Care in Diabetes 2016, [place] Diabetes Association. Diabetes Care. 2016.39(Suppl 1). Performed By: #### 2 4331-1, 86497-1 ####[facility] LABIA [id number] [place] [id number] [place] Potassium [Moles/Vol] 4.7 mmol/L Normal 3.7-5.1 [facility] Comment on above: Order Comment: Epi lind Type: BLOOD SPECIMENOrdering Facility: [facility] Address: [address] [place] [address] Performed By: #### 2 4331-1, 10648-4 ####[facility] LABCLIA [id number] [place] [id number] [place] Protein [Mass/Vol] 7.2 g/dL Normal 6.3-8.0 [facility] Comment on above: Order Comment: Speci men Type: BLOOD SPECIMENOrdering Facility: [facility] Address: [address] [place] [address] Performed By: #### 2 4331-1, 13844-3 ####[facility] LABCLIA [id number] [place] [address] [place] Sodium [Moles/Vol] 140 mmol/L Normal 136-144 [facility] Comment on above: Order Comment: Speci men Type: BLOOD SPECIMENOrdering Facility: [facility] Address: [address] [place] [address] Performed By: #### 2 4331-1, 31282-4 ####[facility] LABIA [id number] [place] [address] [place] Urea nitrogen [Mass/Vol] 14 mg/dL Normal 7-21 [facility] Comment on above: Order Comment: Speci men Type: BLOOD SPECIMENOrdering Facility: [facility] Address: [address] [place] [address] Performed By: #### 2 4331-1, 47442-3 ####[facility] LABIA [id number] [place] [id number] [place] HbA1c (Bld)on 11-28-2023 Average glucose Estimated from glycated hemoglobin (Bld) [Mass/Vol] 146 mg/dL Normal [facility] Comment on above: Order Comment: Speci men Type: BLOOD SPECIMENOrdering Facility: [facility] Address: [address] [place] [address] Result Comment: eAG: (Estimated average glucose) is a calculated value from HgbA1c and is patient accounting representative of the average blood glucose level in the last 2-3 month period. Performed By: #### 5 5454-3 ####[facility] LABCLIA [id number] [place] [address] [place] HbA1c (Bld) [Mass fraction] 6.7 % High 4.3-5.6 [facility] Comment on above: Order Comment: Epi lind Type: BLOOD SPECIMENOrdering Facility: [facility] Address: [address] [place] [address] Result Comment: [place] Diabetes Association guidelines indicate that patients with HgbA1c in the range 5.7-6.4% are at increased risk for development of diabetes, and intervention by lifestyle modification may be beneficial. HgbA1c greater or equal to 6.5% is considered diagnostic of diabetes. Performed By: #### 5 5454-3 ####[facility] LABIA [id number] [place] [address] [place] Lipid 1996 panelon 4 Cholesterol [Mass/Vol] 184 mg/dL Normal <[address] [facility] Comment on above: Order Comment: Epi lind Type: BLOOD SPECIMENOrdering Facility: [facility] Address: [address] [place] [address] Result Comment: <200 mg/dL, Desirable 200-239 mg/dL, Borderline high >239 mg/dL, High Performed By: #### 2 4331-1, 52342-9 ####[facility] LABIA [id number] [address] [place] Cholesterol in HDL [Mass/Vol] 60 mg/dL Normal >39 [facility] Comment on above: Order Comment: Epi lind Type: BLOOD SPECIMENOrdering Facility: [facility] Address: [address] [place] [address] Result Comment: 40-5 9 mg/dL, Acceptable >59 mg/dL, High: Negative risk factor for coronary heart disease <40 mg/dL, Low: Positive risk factor for coronary heart disease Performed By: #### 2 433-1, ####[facility] LABCLIA [id number] [place] [address] [place] Cholesterol in LDL [Mass/Vol] 106 mg/dL High <100 [facility] Comment on above: Order Comment: Speci men Type: BLOOD SPECIMENOrdering Facility: [facility] Address: [address] [place] [address] Result Comment: <100 mg/dL, Optimal 100-129 mg/dL, Near optimal/above optimal 130-159 mg/dL, Borderline high 160-189 mg/dL, High >189 mg/dL, Very high Secondary prevention optimal LDL Cholesterol levels are recommended to be < 70 mg/dL Performed By: #### 2 433-, ####[facility] LABIA [id number] [place] [address] [place] Cholesterol in LDL/Cholesterol in HDL [Mass ratio] 1.77 {ratio} Normal <2.54 [facility] Comment on above: Order Comment: Speci men Type: BLOOD SPECIMENOrdering Facility: [facility] Address: [address] [place] [address] Result Comment: Dc cabezas: 1. National Cholesterol Education Program ATP III Guideline At-A-Glance Quick Desk Reference: National Heart, Lung, and Blood [place]. National Institutes of Health. 2001: NIH Publication No. 01-3305. 2. An International Atherosclerosis Society position paper: global recommendations for the management of dyslipidemia: executive summary, Atherosclerosis. 2014: 232(2):410-413. Performed By: #### 2 433-, ####[facility] LABIA [id number] [place] [address] [place] Cholesterol in VLDL [Mass/Vol] 18 mg/dL Normal <30 [facility] Comment on above: Order Comment: Speci men Type: BLOOD SPECIMENOrdering Facility: [facility] Address: [address] [place] [address] Performed By: #### 2 433-, ####[facility] LABCLIA [id number] [address] [address] [place] Cholesterol non HDL [Mass/Vol] 124 mg/dL Normal <130 [facility] Comment on above: Order Comment: Speci men Type: BLOOD SPECIMENOrdering Facility: [facility] Address: [address] [place] [address] Result Comment: <130 mg/dL, Optimal 130-159 mg/dL, Near optimal/above optimal 160-189 mg/dL, Borderline high 190-219 mg/dL, High >219 mg/dL, Very high Secondary prevention optimal non HDL Cholesterol levels are recommended to be <100 mg/dL Performed By: #### 2 4331-1, ####[facility] LABCLIA [id number] [place] [address] [place] Cholesterol.total/Cholest gab in HDL [Mass ratio] 3.07 {ratio} Normal <5.10 [facility] Comment on above: Order Comment: Speci men Type: BLOOD SPECIMENOrdering Facility: [facility] Address: [address] [place] [address] Performed By: #### 2 4331-, ####[facility] LABCLIA [id number] [place] [address] [place] FASTING TIME 13 hrs Normal [facility] Comment on above: Order Comment: Speci men Type: BLOOD SPECIMENOrdering Facility: [facility] Address: [address] [place] [address] Performed By: #### 2 4331-1, ####[facility] LABCLIA [id number] [place] [address] [place] Triglyceride [Mass/Vol] 88 mg/dL Normal <150 [facility] Comment on above: Order Comment: Speci men Type: BLOOD SPECIMENOrdering Facility: [facility] Address: [address] [place] [address] Result Comment: <150 mg/dL, Normal 150-199 mg/dL, Borderline high 200-499 mg/dL, High >499 mg/dL, Very high Performed By: #### 2 4331-1, 80193-3 ####[facility] LABCLIA [id number] [place] [address] [place] TOXICOLOGY SCREEN, ROUTINE U RINEon 11-28-2023 Amphetamines Confirm (U) [Mass/Vol] Negative Normal Negative [facility] Comment on above: Order Comment: Speci men Type: URINE SPECIMENOrdering Facility: [facility] Address: [address] [place] [address] Result Comment: Cuto ff threshold at 1000 ng/mL. Performed By: #### U TOX2 ####[facility] LABIA [id number] [place] [address] [place] BARBITURATES, URINE Negative Normal Negative [facility] Comment on above: Order Comment: Speci men Type: URINE SPECIMENOrdering Facility: [facility] Address: [address] [place] [address] Result Comment: Cuto ff threshold at 200 ng/mL. Performed By: #### U TOX2 ####[facility] LABCLIA [id number] [place] [address] [place] BENZODIAZEPINES, UR Positive Abnormal Negative [facility] Comment on above: Order Comment: Speci men Type: URINE SPECIMENOrdering Facility: [facility] Address: [address] [place] [address] Result Comment: Cuto ff threshold at 200 ng/mL. Performed By: #### U TOX2 ####[facility] LABIA [id number] [place] [address] [place] Cannabinoids Screen Ql (U) Negative Normal Negative [facility] Comment on above: Order Comment: Speci men Type: URINE SPECIMENOrdering Facility: [facility] Address: [address] [place] [address] Result Comment: Cuto ff threshold at 50 ng/mL. Performed By: #### U TOX2 ####[facility] LABCLIA [id number] [place] [address] [place] Cocaine Ql (U) Negative Normal Negative [facility] Comment on above: Order Comment: Speci men Type: URINE SPECIMENOrdering Facility: [facility] Address: [address] [place] [address] Result Comment: Cuto ff threshold at 300 ng/mL. Performed By: #### U TOX2 ####[facility] LABCLIA [id number] [place] [address] [place] Ethanol (U) [Mass/Vol] <11 Normal <[address] [facility] Comment on above: Order Comment: Speci men Type: URINE SPECIMENOrdering Facility: [facility] Address: [address] [place] [address] Performed By: #### U TOX2 ####[facility] LABIA [id number] [place] [address] [place] Opiates Screen Ql (U) Negative Normal Negative [facility] Comment on above: Order Comment: Speci men Type: URINE SPECIMENOrdering Facility: [facility] Address: [address] [place] [address] Result Comment: Cuto ff threshold at 300 ng/mL. Performed By: #### U TOX2 ####[facility] LABCLIA [id number] [place] [address] [place] oxyCODONE cutoff Screen (U) [Mass/Vol] Negative Normal Negative [facility] Comment on above: Order Comment: Speci men Type: URINE SPECIMENOrdering Facility: [facility] Address: [address] [place] [address] Result Comment: Cuto ff threshold at 100 ng/mL. Performed By: #### U TOX2 ####[facility] LABCLIA [id number] [place] [address] [place] Phencyclidine Ql (U) Negative Normal Negative [facility] Comment on above: Order Comment: Speci men Type: URINE SPECIMENOrdering Facility: [facility] Address: [address] [place] [address] Result Comment: Cuto ff threshold at 25 ng/mL. Performed By: #### U TOX2 ####[facility] LABCLIA [id number] [facility] [id number] [address] [place] Emergency Department Summary on 11-18-2023 Emergency Department Summary [facility] Medical Records Department [address] [place] [address] Emergency Department Summary 11/18/23 MR#: [id number] Acct: [id number] Name: KESHIA ROJAS Rep #: [id number] : 1950 73 From: Roque Ho MD [...] medial meniscus cartilage removed remotely, and has [id number]-aq-olsd arthritis in her left knee anyway. She sustained a bruise to her left lateral knee and now has pain with weightbearing and walking. She denies hitting her head or loss of consciousness, or other injury. She does have history of chronic back pain. She sees Dr. Grover as her spine surgeon. [facility] Medical History Loss of hearing Wears glasses Wears partial dentures Post-menopausal Anxiety Thyroid disease Ambulates with cane Urinary incontinence Difficulty swallowing Gastric reflux Non-smoker History of echocardiogram History of stress test Seasonal allergies Hoarseness Leg cramps History of edema Shortness of breath on exertion Cardiology follow-up encounter History of cataract Ganglion cyst Atherosclerotic heart disease of [place] coronary artery without angina pectoris Cholelithiasis with [...] (From Allergy (more content not included)... Normal [facility] Knee 4 or More Viewson 11-17 Knee 4 or More Views [facility] Imaging Services [address] [place] [address] Knee 4 or More Views MR#: [id number] Acct: [id number] Name: KESHIA ROJAS Rep #: [id number] : 1950 F 73 From: Edilberto Jurado MD PCP: Dr. Paulo Scott MD Status: PRE ER Study: Knee 4 or More Views Date of Exam: 11/18/23 Exam# [id number] Ordering Dr: Rafal Bell PShabnam [id number] INDICATION: Trauma, fall, injury EXAMINATION/TECHNIQUE: X-RAY - [...] Dr. Paulo Scott MD; ED PHYSICIAN PROVIDER Media Services Director: Signed Normal [facility] CNOVon 10-17-2023 CNOV Office Visit (INTMWS ) ----- NANCIKESHIA TOLBERT ([id number]) 1950 F Date Time Provider Department 10/17/23 10:20 AM JUAN RODRIGUEZ INTMWS During your visit today, we recorded the following information about you: Pulse Respiration Blood pressure Weight 83/minute 14/minute 128/66 87.3 kg Height 1.626 m Juan Rodriguez APRN.JEWEL SORTER 10/17/2023 10:52 AM Signed SUBJECTIVE: Depression Screening Never done RSV Vaccine(1 - 1-dose 60+ series) Never done Shingrix Vaccine(2 of 3) due on 05/01/2012 DTaP,Tdap,Td Vaccine(1 - Tdap) due on 11/19/2019 Covid-19 Vaccine(3 - season) due on 11/15/2022 Advance Directive [...] has 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 She notes limited fluid intake yesterday due [...] and oriented to person, place, and time. 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 ALLERGIES Allergen Reactions Adhesive Rash [...] mandibular pain, lymphadenopathy, possible angio edema per [facility] ER note 04/24/2022 Meclizine Swelling URINARY RETENTION,FACE FELT FUN (more content not included)... Normal [facility]oc [facility]-17[facility]20[facility] KESHIA ROJAS ([id number]) 1950 F Date Time Provider Department 10/17/23 PAULO SCOTT INTMWS During your visit today, we recorded the following information about you: Felicitas, Erika Denise, PAIN MEDICINE PHYSICIAN 10/17/2023 8:31 AM Signed Pt called in [...] BETADINE (POVIDONE-IODINE) 11/04/2006 2 - Rash CETACAINE ([id number] 09/11/2012 14 - Other: See Comments Comments: [...] mandibular pain, lymphadenopathy, possible angio edema per [facility] ER note 04/24/2022 MECLIZINE 03/07/2006 7 - [...] Meds C (more content not included)... Normal [facility] XR Knee - bilateral 4 Viewso n 07-22-2023 IMPRESSION: No acute osseous abnormality in the knees, mild degenerative changes. Media Services Director: [facility] Transcribe Date/Time: Jul 22 2023 5:11P Dictated by : DAVID GONZALEZ MD This examination was interpreted and the report reviewed and electronically signed by: DAVID GONZALEZ MD on Jul 22 2023 5:14PM [facility] DIVISION OF RADIOLOGY * * *Final Report* [...] No joint effusion. DIVISION OF RADIOLOGY Provider, [facility] Brandee [facility] - 07/22/2023 * * *Final Report* * [...] abnormality in the knees, mild degenerative changes. Media Services Director[facility] Transcribe Date/Time: Jul 22 2023 5:11P Dictated by : DAVID GONZALEZ MD This examination was interpreted and the report reviewed and electronically signed by: DAVID GONZALEZ MD on Jul 22 2023 5:14PM EST [facility] Radiology Study observation (narrative) [facility] XR Knee - bilateral 4 ViewsO rdered By: Ccf Provider on 07-22-2023 [facility] TOX SCREEN ROUT URon 023 Amphetamines Confirm (U) [Mass/Vol] Negative Negative [facility] Barbiturates Urine Negative Negative [facility] Benzodiazepines Urine Positive Abnormal Negative [facility] Cannabinoids Screen Ql (U) Negative Negative [facility] Cocaine Ql (U) Negative Negative [facility] Ethanol (U) [Mass/Vol] <11 mg/dL Cl [facility] Opiates Screen Ql (U) Negative Negative [facility] oxyCODONE cutoff Screen (U) [Mass/Vol] Negative Negative [facility] Phencyclidine Ql (U) Negative Negative [facility] CBC W Auto Differential pane l (Bld)on 02-19-2023 Basophils (Bld) [#/Vol] 0.12 10*3/uL High <0.11 k/uL [facility] Basophils/100 WBC (Bld) 1.3 % [facility] Differential cell count method Nom (Bld) Auto [facility] Eosinophils (Bld) [#/Vol] 0.73 10*3/uL High <0.46 k/ uL [facility] Eosinophils/100 WBC (Bld) 8.0 % [facility] Erythrocyte distribution width (RBC) [Ratio] 13.5 % 11.5 - 15.0 % [facility] Hematocrit (Bld) [Volume fraction] 42.7 % 36.0 - 46.0 % [facility] Hemoglobin (Bld) [Mass/Vol] 14.0 g/dL 11.5 - 15.5 g/dL [facility] Immature granulocytes (Bld) [#/Vol] 0.03 10*3/uL <0.10 k/uL [facility] Immature granulocytes/100 WBC (Bld) 0.3 % [facility] Lymphocytes (Bld) [#/Vol] 2.95 10*3/uL 1. 00 - 4.00 k/uL [facility] Lymphocytes/100 WBC (Bld) 32.3 % [facility] MCH (RBC) [Entitic mass] 31.1 pg 26. 0 - 34.0 pg [facility] MCHC (RBC) [Mass/Vol] 32.8 g/dL 30.5 - 36.0 g/dL [facility] MCV (RBC) [Entitic vol] 94.9 fL 80.0 - 100.0 fL [facility] Monocytes (Bld) [#/Vol] 0.93 10*3/uL High <0.87 k/uL [facility] Monocytes/100 WBC (Bld) 10.2 % [facility] Neutrophils (Bld) [#/Vol] 4.36 10*3/uL 1. 45 - 7.50 k/uL [facility] Neutrophils/100 WBC (Bld) 47.9 % [facility] Nucleated RBC (Bld) [#/Vol] <0.01 k/uL [facility] Nucleated RBC/100 WBC (Bld) [Ratio] 0.0 /100 WBC [facility] Platelet mean volume (Bld) [Entitic vol] 9.8 fL 9.0 - 12.7 fL [facility] Platelets (Bld) [#/Vol] 370 10*3/uL 150 - 400 k/uL [facility] RBC (Bld) [#/Vol] 4.50 10*6/uL 3.90 - 5.20 m/uL [facility] WBC (Bld) [#/Vol] 9.12 10*3/uL 3.70 - 11.00 k/uL [facility] Comprehensive metabolic 2000 panelon 02-19-2023 Albumin [Mass/Vol] 4.1 g/dL 3.9 - 4.9 g/dL [facility] ALP [Catalytic activity/Vol] 60 U/L 34 - 123 U/L [facility] ALT [Catalytic activity/Vol] 24 U/L 7 - 38 U/L [facility] Anion gap [Moles/Vol] 12 mmol/L 9 - 18 mmol/L [facility] AST [Catalytic activity/Vol] 21 U/L 13 - 35 U/L [facility] Bilirubin [Mass/Vol] 0.5 mg/dL 0.2 - 1 .3 mg/dL [facility] Calcium [Mass/Vol] 9.7 mg/dL 8.5 - 10. 2 mg/dL [facility] Chloride [Moles/Vol] 103 mmol/L 97 - 10 5 mmol/L [facility] CO2 [Moles/Vol] 27 mmol/L 22 - 30 mmol/L [facility] Creatinine [Mass/Vol] 0.81 mg/dL 0.58 - 0.96 mg/dL [facility] Estimated Glomerular Filtration Rate 77 mL/min/1.73m >=60 mL/min/1.7 3m [facility] Glucose [Mass/Vol] 119 mg/dL High 74 - 99 mg/dL [facility] Potassium [Moles/Vol] 4.6 mmol/L 3.7 - 5.1 mmol/L [facility] Protein [Mass/Vol] 7.2 g/dL 6.3 - 8.0 g/dL [facility] Sodium [Moles/Vol] 142 mmol/L 136 - 144 mmol/L [facility] Urea nitrogen [Mass/Vol] 19 mg/dL 7 - 21 mg/dL [facility] HbA1c (Bld)on 02-19-2023 Average glucose Estimated from glycated hemoglobin (Bld) [Mass/Vol] 128 mg/dL [facility] HbA1c (Bld) [Mass fraction] 6.1 % High 4.3 - 5.6 % [facility] Lipid 1996 panelon 3 Cholesterol [Mass/Vol] 179 mg/dL <200 mg/dL [facility] Cholesterol in HDL [Mass/Vol] 54 mg/dL >39 mg/dL [facility] Cholesterol in LDL [Mass/Vol] 110 mg/dL High <100 mg/dL [facility] Cholesterol in LDL/Cholesterol in HDL [Mass ratio] 2.04 {ratio} <2.54 [facility] Cholesterol in VLDL [Mass/Vol] 15 mg/dL <30 mg/dL [facility] Cholesterol non HDL [Mass/Vol] 125 mg/dL <130 mg/dL [facility] Cholesterol.total/Cholest gab in HDL [Mass ratio] 3.31 {ratio} <5.10 [facility] Fasting Time 10 hrs [facility] Triglyceride [Mass/Vol] 74 mg/dL <150 mg/dL [facility] TSH BLDon 02-19-2023 TSH Qn 3.670 m[IU]/L 0.270 - 4.200 mIU/L [facility] No Panel InformationOrdered By: Raul Casper on 10-17-2022 Stool Calprotectin 77 ug/g 0-120 [facility] Comment on above: Concentration Interp retation Follow-Up< 5 - 50 ug/g Normal None>50 -120 ug/g Borderline Re-evaluate in 4-6 weeks >120 ug/g Abnormal Repeat as clinically indicatedPerformed at: [facility] [address] [id number] Director: Kathrin Rivera MD, Phone: [phone] Stool Pancreatic Elastase 334 >200 [facility] Comment on above: Result Units: ug Lena st./g Severe Pancreatic Insufficiency: <100 Moderate Pancreatic Insufficiency: 100 - 200 Normal: >200Performed at: [facility] [address] [id number] Director: Kathrin Rivera MD, Phone: [phone] Stool lactoferrin detection by immunoassayOrdered By: Raul Casper on 10-17-2022 Lactoferrin IA Ql (Stl) [facility] 24 hour urine coproporphyrin 1 measurement (mass/volume)Ordered By: Raul Casper on 10-15-2022 Coproporphyrin 1 (24H U) [Mass/Vol] 21 ug/24 hr 0-24 [facility] 24 hour urine coproporphyrin 3 measurement (mass/volume)Ordered By: Raul Casper on 10-15-2022 Coproporphyrin 3 (24H U) [Mass/Vol] 81 ug/24 hr 0-74 [facility] Comment on above: Performed at: [address] [id number] Director: Kathrin Rivera MD, Phone: [phone] 24 hour urine heptacarboxylp orphyrin measurement (mass/time)Ordered By: Raul Casper on 10-15-2022 Heptacarboxylporphyrin (24H U) [Mass/Time] <3 ug/24 hr 0-4 [facility] 24 hour urine hexacarboxylpo rphyrin measurement (mass/time)Ordered By: Raul Casper on 10-15-2022 Hexacarboxylporphyrin (24H U) [Mass/Time] <3 ug/24 hr 0-1 [facility] 24 hour urine pentacarboxylp orphyrins measurement (mass/time)Ordered By: Raul Casper on 10-15-2022 Pentacarboxylporphyrins (24H U) [Mass/Time] <3 ug/24 hr 0-4 [facility] 24 hour urine uroporphyrin m easurement (mass/time)Ordered By: Raul Casper on 10-15-2022 Uroporphyrin (24H U) [Mass/Time] 9 ug/24 hr 0-24 [facility] Urine coproporphyrin 1 measu rement (mass/volume)Ordered By: Raul Casper on 10-15-2022 Coproporphyrin 1 (U) [Mass/Vol] 7 ug/L Undefined [facility] Urine coproporphyrin 3 measu rement (mass/volume)Ordered By: Raul Casper on 10-15-2022 Coproporphyrin 3 (U) [Mass/Vol] 27 ug/L Undefined [facility] Urine heptacarboxylporphyrin measurement (mass/volume)Ordered By: Raul Casper on 10-15-2022 Heptacarboxylporphyrin (U) [Mass/Vol] <1 ug/L Undefined [facility] Urine hexacarboxylporphyrin measurement (mass/volume)Ordered By: Raul Casper on 10-15-2022 Hexacarboxylporphyrin (U) [Mass/Vol] <1 ug/L Undefined [facility] Urine pentacarboxylporphyrin s measurement (mass/volume)Ordered By: Raul Casper on 10-15-2022 Pentacarboxylporphyrins (U) [Mass/Vol] <1 ug/L Undefined [facility] Urine uroporphyrin measureme nt (mass/volume)Ordered By: Raul Casper on 10-15-2022 Uroporphyrin (U) [Mass/Vol] 3 ug/L Undefined [facility] Absolute lymphocyte countOrd ered By: Raul Casper on 10-02-2022 Lymphocytes Auto (Unsp spec) [#/Vol] 2.50 10*3/uL 0.83-4.51 [facility] Albumin Elph [Mass/Vol]Order ed By: Raul Casper on 10-02-2022 Albumin [Mass/Vol] 3.6 g/dL 2.9-4.4 [facility] Atypical perinuclear antineu trophil cytoplasmic antibodies measurementOrdered By: Raul Casper on 10-02-2022 Neutrophil cytoplasmic Ab.perinuclear.atypical IF (S) [Titer] <1:20 titer Neg:<1:20 [facility] Comment on above: Serum is slightly li pemic.The atypical pANCA pattern has been observed in asignificant percentage of patients with ulcerative colitis,primary sclerosing cholangitis and autoimmune hepatitis.Performed at: - [facility] [id number] Director: Marcin Álvarez PhD, Phone: [phone] at: - [facility] [id number] Director: Kathrin Rivera MD, Phone: [phone] Basophil percentageOrdered B y: Raul Casper on 10-02-2022 Basophil percentage < 0.2 AI 0.0-0.9 [facility] Basophils/100 WBC (Bld) 0.8 % 0-1 [facility] Bilirubin [Mass/Vol] 0.40 mg/dL 0.20-1.00 [facility] Comment on above: For patients on eltr ombopag therapy, use of Dimension [place] TBIL is not recommended. Chloride [Moles/Vol] 105 mmol/L 98-107 [facility] Eosinophils/100 WBC (Bld) 5.9 % 0-5 [facility] Glucose [Mass/Vol] 136 mg/dL 74-106 [facility] Comment on above: Fasting Glucose resu lt greater than or equal to 126 mg/dL suggests DIABETES MELLITUS per A.D.A. criteria. LDH [Catalytic activity/Vol] 202 U/L 84-246 [facility] Neutrophils (Bld) [#/Vol] 6.8 10*3/uL 2.0-7.7 [facility] Neutrophils/100 WBC (Bld) 62.4 % 47-70 [facility] Potassium [Moles/Vol] 3.9 mmol/L 3.5-5.1 [facility] Protein [Mass/Vol] 7.8 g/dL 6.4-8.2 [facility] Sodium [Moles/Vol] 138 mmol/L 136-145 [facility] WBC (Bld) [#/Vol] 11.0 10*3/uL 4.4-11.0 [facility] Blood erythrocytes count (nu mber/volume)Ordered By: Raul Casper on 10-02-2022 RBC (Bld) [#/Vol] 4.83 10*6/uL 4.2-5.4 [facility] Blood hemoglobin measurement (mass/volume)Ordered By: Raul Casper on 10-02-2022 Hemoglobin (Bld) [Mass/Vol] 14.7 g/dL 12.0-15.0 [facility] Blood lymphocytes/100 leukoc ytesOrdered By: Raul Casper on 10-02-2022 Lymphocytes/100 WBC (Bld) 22.8 % 19-41 [facility] Blood monocytes/100 leukocyt esOrdered By: Raul Casper on 10-02-2022 Monocytes/100 WBC (Bld) 7.7 % 0-10 [facility] Blood platelet mean volumeOr dered By: Raul Casper on 10-02-2022 Platelet mean volume (Bld) [Entitic vol] 10.0 fL 6.2-12.0 [facility] Determination of erythrocyte mean corpuscular volume (MCV)Ordered By: Raul Casper on 10-02-2022 MCV (RBC) [Entitic vol] 95.4 fL 81-99 [facility] Erythrocyte sedimentation ra teOrdered By: Raul Casper on 10-02-2022 ESR (Bld) [Velocity] 17 mm/h 0-30 [facility] Hematocrit Auto (Bld) [Volum e fraction]Ordered By: Raul Casper on 10-02-2022 Hematocrit (Bld) [Volume fraction] 46.1 % 37-47 [facility] Interpretation of serum or p lasma protein pattern by immunofixation (narrative resultOrdered By: Raul Casper on 10-02-2022 Protein Fractions Immunofixation Emil [Interp] See comment [facility] Comment on above: Result: Not Observed Laboratory - Chemistry and C hemistry - challengeOrdered By: Raul Casper on 10-02-2022 ALP [Catalytic activity/Vol] 76 U/L 45-117 [facility] ALT [Catalytic activity/Vol] 32 U/L 13-56 [facility] CO2 [Moles/Vol] 27.0 mmol/L 21.0-32.0 [facility] Urea nitrogen/Creatinine [Mass ratio] 18.1 mg/mg 10-20 [facility] Laboratory - Hematology and Cell countsOrdered By: Raul Casper on 10-02-2022 Erythrocyte distribution width (RBC) [Entitic vol] 47.1 fL 35.1-43.9 [facility] Erythrocyte distribution width (RBC) [Ratio] 13.4 % 11.6-14.6 [facility] Immature granulocytes/100 WBC (Bld) 0.400 % 0.0-0.9 [facility] Comment on above: IG% - Immature Granu locytes (promyelocytes, myelocytes and metamyelocytes) > 1% indicates that a LEFT SHIFT is Present. MCH (RBC) [Entitic mass] 30.4 pg 27.0-32.0 [facility] Nucleated RBC/100 WBC (Bld) [Ratio] 0 % 0-5 [facility] MCHC Auto (RBC) [Mass/Vol]Or dered By: Raul Casper on 10-02-2022 MCHC (RBC) [Mass/Vol] 31.9 g/dL 32-36 [facility] No Panel InformationOrdered By: Raul Friend on 10-02-2022 Addendum Document Comment . [facility] Comment on above: Protein electrophore sis scan will follow via computer,mail, or lap maker delivery. Centromere B Antibody <0.2 AI 0.0-0.9 [facility] Endomysial IgA Antibody Negative Negative [facility] Estimated GFR (MDRD) Amer 75 mL/min >60 [facility] Comment on above: GFR Calc Estimated GFR (MDRD) Non-Af Amer 62 mL/min >60 [facility] Comment on above: Non- GFR Calc Immunoglobulin E 171 IU/mL 6-495 [facility] Miscellaneous Test See comment [facility] Comment on above: TEST RESULT LIMITSIB D [...] developed and its performance characteristics determined by [employer]. It has not been cleared or approved by the Food and Drug Administration. The FDA has determined that such clearance or approval is not necessary.Atypical pANCA Negative Negative Comments Pattern is not suggestive of Inflammatory Bowel Disease ____ TESTING PERFORMED AT [facility]. ORIGINAL REPORT ON FILE IN LAB CONTAINS ADDITIONAL TEST SITE INFORMATION. [employer] MA[employer]GER Antibody <0.2 AI 0.0-0.9 [facility] Platelets bldOrdered By: Freddy ferro Friend on 10-02-2022 Platelets (Bld) [#/Vol] 334 10*3/uL 150-450 [facility] Serum DNA double strand anti body assay (units/volume)Ordered By: Raul Casper on 10-02-2022 DNA double strand Ab Qn (S) 1 [IU]/mL 0-9 [facility] Comment on above: Negative <5 Equivoca l 5 - 9 Positive >9 Serum Shira-1 antibody assay (u nits/volume)Ordered By: Raul Casper on 10-02-2022 Shira-1 extractable nuclear Ab Qn (S) <0.2 AI 0.0-0.9 [facility] Serum Scl-70 extractable nuc lear antibody assay (units/volume)Ordered By: Raul Casper on 10-02-2022 SCL-70 extractable nuclear Ab Qn (S) <0.2 AI 0.0-0.9 [facility] Serum Louise extractable nucl ear antibody detectionOrdered By: Raul Casper on 10-02-2022 Louise extractable nuclear Ab Ql (S) <0.2 AI 0.0-0.9 [facility] Serum [id number] measu rement by electrophoresisOrdered By: Raul Casper on 10-02-2022 Alpha 1 globulin Elph [Mass/Vol] 0.2 g/dL 0.0-0.4 [facility] Alpha 1 globulin Elph [Mass/Vol] 0.7 g/dL 0.4-1.0 [facility] Serum classic neutrophil cyt oplasmic antibody assay (units/volume)Ordered By: Raul Casper on 10-02-2022 Neutrophil cytoplasmic Ab.classic Qn (S) <1:20 titer Neg:<1:20 [facility] Comment on above: Serum is slightly li pemic. Serum globulin measurement ( mass/volume)Ordered By: Raul Casper on 10-02-2022 Globulin (S) [Mass/Vol] 3.5 g/dL 2.2-3.9 [facility] Serum or plasma C reactive p rotein measurement (mass/volume)Ordered By: Raul Casper on 10-02-2022 CRP [Mass/Vol] 5.65 mg/L 0.0-3.0 [facility] Comment on above: C-Reactive Protein ( CRP) provides useful information for thediagnosis, therapy and monitoring of inflammatory processesand associated diseases. For the evaluation of Relative Riskfor Cardiovascular Disease, a High Sensitivity CRP (HSCRP)should be ordered. Serum or plasma IgA measurem ent (mass/volume)Ordered By: Raul Casper on 10-02-2022 IgA [Mass/Vol] 473 mg/dL 64-422 [facility] Serum or plasma IgG measurem ent (mass/volume)Ordered By: Raul Casper on 10-02-2022 IgG [Mass/Vol] 1301 mg/dL [id number] [facility] Serum or plasma IgM measurem ent (mass/volume)Ordered By: Raullucy Casper on 10-02-2022 IgM [Mass/Vol] 75 mg/dL 26-217 [facility] Serum or plasma albumin jojo urement (mass/volume)Ordered By: Raul Casper on 10-02-2022 Albumin [Mass/Vol] 3.5 g/dL 3.2-5.0 [facility] Serum or plasma albumin/glob ulin mass ratioOrdered By: Raul Casper on 10-02-2022 Albumin/Globulin [Mass ratio] 0.8 {ratio} 0.9-2.4 [facility] Serum or plasma beta globuli n measurement by electrophoresis (mass/volume)Ordered By: Raul Casper on 10-02-2022 Beta globulin Elph [Mass/Vol] 1.2 g/dL 0.7-1.3 [facility] Serum or plasma calcium jojo urement (mass/volume)Ordered By: Raul Casper on 10-02-2022 Calcium [Mass/Vol] 9.2 mg/dL 8.5-10.1 [facility] Serum or plasma creatinine m easurement (mass/volume)Ordered By: Raul Casper on 10-02-2022 Creatinine [Mass/Vol] 0.94 mg/dL 0.55-1.02 [facility] Comment on above: The validity of the calculated GFR & GFRAA in patients over 70 years has not been determined. Clinical correlation is essential. Serum or plasma gamma globul in measurement by electrophoresis (mass/volume)Ordered By: Raul Casper on 10-02-2022 Gamma globulin Elph [Mass/Vol] 1.3 g/dL 0.4-1.8 [facility] Serum or plasma immunoelectr ophoresis interpretation (nominal result)Ordered By: Raul Casper on 10-02-2022 Interpretation IEP [Interp] Comment . [facility] Comment on above: No monoclonality det ected. Serum or plasma urea nitroge n measurement (mass/volume)Ordered By: Raul Casper on 10-02-2022 Urea nitrogen [Mass/Vol] 17 mg/dL 7-18 [facility] Serum perinuclear neutrophil cytoplasmic antibody titer by immunofluorescenceOrdered By: Raul Casper on 10-02-2022 Neutrophil cytoplasmic Ab.perinuclear IF (S) [Titer] <1:20 titer Neg:<1:20 [facility] Comment on above: Serum is slightly li pemic.The presence of positive fluorescence exhibiting P-ANCA orC-ANCA patterns alone is not specific for the diagnosis ofWegener's Granulomatosis (WG) or microscopic polyangiitis.Decisions about treatment should not be based solely onANCA IFA results. The [employer] ANCA [employer] Consensusrecommends follow up testing of positive sera with both VA-3 and MPO-ANCA enzyme immunoassays. As many as 5% serumsamples are positive only by EIA. Ref. AM J Clin [id number];111:507-513. Serum tissue transglutaminas e IgA antibody assay (units/volume)Ordered By: Raul Casper on 10-02-2022 tTG IgA Qn (S) <2 U/mL 0-3 [facility] Comment on above: Negative 0 - 3 Weak Positive 4 - 10 Positive >10 Tissue Transglutaminase (tTG) has been identified as the endomysial antigen. Studies have demonstr- ated that endomysial IgA antibodies have over 99% specificity for gluten sensitive enteropathy. Thin prep Papanicolaou smear with manual screeningOrdered By: Raul Casper on 10-02-2022 Thin prep Papanicolaou smear with manual screening 21 U/L 15-37 [facility] Thin prep Papanicolaou smear with manual screening 6 5-15 [facility] Thin prep Papanicolaou smear with manual screening 1.1 0.7-1.7 [facility] Total protein bloodOrdered B y: Raul Casper on 10-02-2022 Protein [Mass/Vol] 7.1 g/dL 6.0-8.5 [facility] FORTUNATO SCREENINGon 09-13-2022 [facility] Absolute lymphocyte countOrd ered By: ED PROVIDER on 08-05-2022 Lymphocytes Auto (Unsp spec) [#/Vol] 2.49 10*3/uL 0.83-4.51 [facility] Basophil percentageOrdered B y: ED PROVIDER on 08-05-2022 Basophils/100 WBC (Bld) 1.2 % 0-1 [facility] Bilirubin [Mass/Vol] 0.70 mg/dL 0.20-1.00 [facility] Comment on above: For patients on eltr ombopag therapy, use of Dimension [place] TBIL is not recommended. Chloride [Moles/Vol] 107 mmol/L 98-107 [facility] Eosinophils/100 WBC (Bld) 5.4 % 0-5 [facility] Glucose [Mass/Vol] 110 mg/dL 74-106 [facility] Comment on above: Fasting Glucose resu lt from 100 to 125 mg/dL suggests IMPAIRED HOMEOSTASIS per A.D.A. criteria. Neutrophils (Bld) [#/Vol] 5.9 10*3/uL 2.0-7.7 [facility] Neutrophils/100 WBC (Bld) 60.4 % 47-70 [facility] Potassium [Moles/Vol] 4.1 mmol/L 3.5-5.1 [facility] Protein [Mass/Vol] 7.7 g/dL 6.4-8.2 [facility] Sodium [Moles/Vol] 140 mmol/L 136-145 [facility] WBC (Bld) [#/Vol] 9.8 10*3/uL 4.4-11.0 [facility] Blood erythrocytes count (nu mber/volume)Ordered By: ED PROVIDER on 08-05-2022 RBC (Bld) [#/Vol] 4.73 10*6/uL 4.2-5.4 [facility] Blood hemoglobin measurement (mass/volume)Ordered By: ED PROVIDER on 08-05-2022 Hemoglobin (Bld) [Mass/Vol] 14.8 g/dL 12.0-15.0 [facility] Blood lymphocytes/100 leukoc ytesOrdered By: ED PROVIDER on 08-05-2022 Lymphocytes/100 WBC (Bld) 25.3 % 19-41 [facility] Blood monocytes/100 leukocyt esOrdered By: ED PROVIDER on 08-05-2022 Monocytes/100 WBC (Bld) 7.4 % 0-10 [facility] Blood platelet mean volumeOr dered By: ED PROVIDER on 08-05-2022 Platelet mean volume (Bld) [Entitic vol] 9.4 fL 6.2-12.0 [facility] Determination of erythrocyte mean corpuscular volume (MCV)Ordered By: ED PROVIDER on 08-05-2022 MCV (RBC) [Entitic vol] 93.2 fL 81-99 [facility] Hematocrit Auto (Bld) [Volum e fraction]Ordered By: ED PROVIDER on 08-05-2022 Hematocrit (Bld) [Volume fraction] 44.1 % 37-47 [facility] Laboratory - Chemistry and C hemistry - challengeOrdered By: ED PROVIDER on 08-05-2022 ALP [Catalytic activity/Vol] 93 U/L 45-117 [facility] ALT [Catalytic activity/Vol] 37 U/L 13-56 [facility] CO2 [Moles/Vol] 27.0 mmol/L 21.0-32.0 [facility] Globulin (S) [Mass/Vol] 4.2 g/dL 2.2-4.2 [facility] Urea nitrogen/Creatinine [Mass ratio] 16.9 mg/mg 10-20 [facility] Laboratory - Chemistry and C hemistry - challengeOrdered By: Paul Lara on 08-05-2022 Lipase [Catalytic activity/Vol] 27 U/L 13-75 [facility] Comment on above: Please note:LIPASE r evised reference range effective 22. New Lipase methodology. Expected to produce lower values than the previous assay method. NEW Reference Range: 13 - 75 U/L Laboratory - Hematology and Cell countsOrdered By: ED PROVIDER on 08-05-2022 Erythrocyte distribution width (RBC) [Entitic vol] 44.8 fL 35.1-43.9 [facility] Erythrocyte distribution width (RBC) [Ratio] 13.1 % 11.6-14.6 [facility] Immature granulocytes/100 WBC (Bld) 0.300 % 0.0-0.9 [facility] Comment on above: IG% - Immature Granu locytes (promyelocytes, myelocytes and metamyelocytes) > 1% indicates that a LEFT SHIFT is Present. MCH (RBC) [Entitic mass] 31.3 pg 27.0-32.0 [facility] Nucleated RBC/100 WBC (Bld) [Ratio] 0 % 0-5 [facility] MCHC Auto (RBC) [Mass/Vol]Or dered By: ED PROVIDER on 08-05-2022 MCHC (RBC) [Mass/Vol] 33.6 g/dL 32-36 [facility] No Panel InformationOrdered By: ED PROVIDER on 08-05-2022 Estimated Creatinine Clearance Calc 49.34 ml/min [facility] Estimated GFR (MDRD) Amer 80 mL/min >60 [facility] Comment on above: GFR Calc Estimated GFR (MDRD) Non-Af Amer 66 mL/min >60 [facility] Comment on above: Non- GFR Calc Platelets bldOrdered By: ED PROVIDER on 08-05-2022 Platelets (Bld) [#/Vol] 326 10*3/uL 150-450 [facility] Serum or plasma albumin jojo urement (mass/volume)Ordered By: ED PROVIDER on 08-05-2022 Albumin [Mass/Vol] 3.5 g/dL 3.2-5.0 [facility] Serum or plasma albumin/glob ulin mass ratioOrdered By: ED PROVIDER on 08-05-2022 Albumin/Globulin [Mass ratio] 0.8 {ratio} 0.9-2.4 [facility] Serum or plasma calcium jojo urement (mass/volume)Ordered By: ED PROVIDER on 08-05-2022 Calcium [Mass/Vol] 9.5 mg/dL 8.5-10.1 [facility] Serum or plasma creatinine m easurement (mass/volume)Ordered By: ED PROVIDER on 08-05-2022 Creatinine [Mass/Vol] 0.89 mg/dL 0.55-1.02 [facility] Comment on above: The validity of the calculated GFR & GFRAA in patients over 70 years has not been determined. Clinical correlation is essential. Serum or plasma urea nitroge n measurement (mass/volume)Ordered By: ED PROVIDER on 08-05-2022 Urea nitrogen [Mass/Vol] 15 mg/dL 7-18 [facility] Thin prep Papanicolaou smear with manual screeningOrdered By: ED PROVIDER on 08-05-2022 Thin prep Papanicolaou smear with manual screening 23 U/L 15-37 [facility] Thin prep Papanicolaou smear with manual screening 6 5-15 [facility] Absolute lymphocyte countOrd ered By: Dr. Bernabe on 05-06-2022 Lymphocytes Auto (Unsp spec) [#/Vol] 3.48 10*3/uL 0.83-4.51 [facility] Basophil percentageOrdered B y: Dr. Bernabe on 05-06-2022 Basophils/100 WBC (Bld) 1.0 % 0-1 [facility] Bilirubin [Mass/Vol] 0.60 mg/dL 0.20-1.00 [facility] Comment on above: For patients on eltr ombopag therapy, use of Dimension [place] TBIL is not recommended. Chloride [Moles/Vol] 108 mmol/L 98-107 [facility] Eosinophils/100 WBC (Bld) 9.0 % 0-5 [facility] Glucose [Mass/Vol] 124 mg/dL 74-106 [facility] Comment on above: Fasting Glucose resu lt from 100 to 125 mg/dL suggests IMPAIRED HOMEOSTASIS per A.D.A. criteria. Neutrophils (Bld) [#/Vol] 3.1 10*3/uL 2.0-7.7 [facility] Neutrophils/100 WBC (Bld) 37.9 % 47-70 [facility] Potassium [Moles/Vol] 3.5 mmol/L 3.5-5.1 [facility] Protein [Mass/Vol] 6.4 g/dL 6.4-8.2 [facility] Sodium [Moles/Vol] 141 mmol/L 136-145 [facility] WBC (Bld) [#/Vol] 8.1 10*3/uL 4.4-11.0 [facility] Blood erythrocytes count (nu mber/volume)Ordered By: Dr. Bernabe on 05-06-2022 RBC (Bld) [#/Vol] 4.31 10*6/uL 4.2-5.4 [facility] Blood hemoglobin measurement (mass/volume)Ordered By: Dr. Bernabe on 05-06-2022 Hemoglobin (Bld) [Mass/Vol] 13.2 g/dL 12.0-15.0 [facility] Blood lymphocytes/100 leukoc ytesOrdered By: Dr. Bernabe on 05-06-2022 Lymphocytes/100 WBC (Bld) 42.9 % 19-41 [facility] Blood monocytes/100 leukocyt esOrdered By: Dr. Bernabe on 05-06-2022 Monocytes/100 WBC (Bld) 9.0 % 0-10 [facility] Blood platelet mean volumeOr dered By: Dr. Bernabe on 05-06-2022 Platelet mean volume (Bld) [Entitic vol] 9.7 fL 6.2-12.0 [facility] Determination of erythrocyte mean corpuscular volume (MCV)Ordered By: Dr. Bernabe on 05-06-2022 MCV (RBC) [Entitic vol] 94.7 fL 81-99 [facility] Hematocrit Auto (Bld) [Volum e fraction]Ordered By: Dr. Bernabe on 05-06-2022 Hematocrit (Bld) [Volume fraction] 40.8 % 37-47 [facility] Laboratory - Chemistry and C hemistry - challengeOrdered By: Dr. Bernabe on 05-06-2022 ALP [Catalytic activity/Vol] 59 U/L 45-117 [facility] ALT [Catalytic activity/Vol] 27 U/L 13-56 [facility] CO2 [Moles/Vol] 26.0 mmol/L 21.0-32.0 [facility] Globulin (S) [Mass/Vol] 3.4 g/dL 2.2-4.2 [facility] Urea nitrogen/Creatinine [Mass ratio] 15.0 mg/mg 10-20 [facility] Laboratory - Hematology and Cell countsOrdered By: Dr. Bernabe on 05-06-2022 Erythrocyte distribution width (RBC) [Entitic vol] 46.9 fL 35.1-43.9 [facility] Erythrocyte distribution width (RBC) [Ratio] 13.4 % 11.6-14.6 [facility] Immature granulocytes/100 WBC (Bld) 0.200 % 0.0-0.9 [facility] Comment on above: IG% - Immature Granu locytes (promyelocytes, myelocytes and metamyelocytes) > 1% indicates that a LEFT SHIFT is Present. MCH (RBC) [Entitic mass] 30.6 pg 27.0-32.0 [facility] Nucleated RBC/100 WBC (Bld) [Ratio] 0 % 0-5 [facility] MCHC Auto (RBC) [Mass/Vol]Or dered By: Dr. Bernabe on 05-06-2022 MCHC (RBC) [Mass/Vol] 32.4 g/dL 32-36 [facility] No Panel InformationOrdered By: Dr. Campos on 05-06-2022 D-Dimer Quantitative (PE/DVT) 0.50 FEU/ug/m 0.27-0.49 [facility] Comment on above: D-Dimer ELEVATED (>0 .49): Additional studies and clinicalassessments are indicated to conclude diagnosis of:Deep Vein Thrombosis (DVT) or Pulmonary Embolism (PE)CRITICAL VALUE VERIFIED. CALLED TO VKECCUPADXU97/20/23 1101 Tessie Andrade.RESULTS READ BACK BY SAME . Thyroid Stimulating Hormone (TSH) 4.36 uIU/mL 0.358-3.74 [facility] No Panel InformationOrdered By: Dr. Bernabe on 05-06-2022 Estimated Creatinine Clearance Calc 54.89 ml/min [facility] Estimated GFR (MDRD) Amer 91 mL/min >60 [facility] Comment on above: GFR Calc Estimated GFR (MDRD) Non-Af Amer 75 mL/min >60 [facility] Comment on above: Non- GFR Calc Platelets bldOrdered By: Dr. Bernabe on 05-06-2022 Platelets (Bld) [#/Vol] 293 10*3/uL 150-450 [facility] Serum or plasma albumin jojo urement (mass/volume)Ordered By: Dr. Bernabe on 05-06-2022 Albumin [Mass/Vol] 3.0 g/dL 3.2-5.0 [facility] Serum or plasma albumin/glob ulin mass ratioOrdered By: Dr. Bernabe on 05-06-2022 Albumin/Globulin [Mass ratio] 0.9 {ratio} 0.9-2.4 [facility] Serum or plasma calcium jojo urement (mass/volume)Ordered By: Dr. Bernabe on 05-06-2022 Calcium [Mass/Vol] 8.6 mg/dL 8.5-10.1 [facility] Serum or plasma creatinine m easurement (mass/volume)Ordered By: Dr. Bernabe on 05-06-2022 Creatinine [Mass/Vol] 0.80 mg/dL 0.55-1.02 [facility] Comment on above: The validity of the calculated GFR & GFRAA in patients over 70 years has not been determined. Clinical correlation is essential. Serum or plasma urea nitroge n measurement (mass/volume)Ordered By: Dr. Bernabe on 05-06-2022 Urea nitrogen [Mass/Vol] 12 mg/dL 7-18 [facility] Thin prep Papanicolaou smear with manual screeningOrdered By: Dr. Bernabe on 05-06-2022 Thin prep Papanicolaou smear with manual screening 22 U/L 15-37 [facility] Thin prep Papanicolaou smear with manual screening 7 5-15 [facility] Absolute lymphocyte countOrd ered By: La Nena Collazo on 05-05-2022 Lymphocytes Auto (Unsp spec) [#/Vol] 2.27 10*3/uL 0.83-4.51 [facility] Basophil percentageOrdered B y: La Nena Collazo on 05-05-2022 Basophil percentage 0-5 SEEN /hpf 0-5 [facility] Basophils/100 WBC (Bld) 0.9 % 0-1 [facility] Chloride [Moles/Vol] 105 mmol/L 98-107 [facility] Eosinophils/100 WBC (Bld) 4.8 % 0-5 [facility] Glucose [Mass/Vol] 183 mg/dL 74-106 [facility] Comment on above: Fasting Glucose resu lt greater than or equal to 126 mg/dL suggests DIABETES MELLITUS per A.D.A. criteria. Neutrophils (Bld) [#/Vol] 6.8 10*3/uL 2.0-7.7 [facility] Neutrophils/100 WBC (Bld) 65.4 % 47-70 [facility] Potassium [Moles/Vol] 3.9 mmol/L 3.5-5.1 [facility] Sodium [Moles/Vol] 137 mmol/L 136-145 [facility] WBC (Bld) [#/Vol] 10.4 10*3/uL 4.4-11.0 [facility] Bilirubin Test strip Ql (U)O rdered By: La Nena Collazo on 05-05-2022 Bilirubin Ql (U) Negative Negative [facility] Blood erythrocytes count (nu mber/volume)Ordered By: La Nena Collazo on 05-05-2022 RBC (Bld) [#/Vol] 4.66 10*6/uL 4.2-5.4 [facility] Blood hemoglobin measurement (mass/volume)Ordered By: La Nena Collazo on 05-05-2022 Hemoglobin (Bld) [Mass/Vol] 14.3 g/dL 12.0-15.0 [facility] Blood lymphocytes/100 leukoc ytesOrdered By: La Nena Collazo on 05-05-2022 Lymphocytes/100 WBC (Bld) 21.7 % 19-41 [facility] Blood monocytes/100 leukocyt esOrdered By: La Nena Collazo on 05-05-2022 Monocytes/100 WBC (Bld) 6.9 % 0-10 [facility] Blood platelet mean volumeOr dered By: La Nena Collazo on 05-05-2022 Platelet mean volume (Bld) [Entitic vol] 9.4 fL 6.2-12.0 [facility] Determination of erythrocyte mean corpuscular volume (MCV)Ordered By: La Nena Collazo on 05-05-2022 MCV (RBC) [Entitic vol] 93.6 fL 81-99 [facility] Hematocrit Auto (Bld) [Volum e fraction]Ordered By: La Nena Collazo on 05-05-2022 Hematocrit (Bld) [Volume fraction] 43.6 % 37-47 [facility] Ketones Test strip Ql (U)Ord ered By: La Nena Collazo on 05-05-2022 Ketones Ql (U) Negative Negative [facility] Laboratory - Chemistry and C hemistry - challengeOrdered By: La Nena Collazo on 05-05-2022 CK [Catalytic activity/Vol] 186 U/L 26-192 [facility] CO2 [Moles/Vol] 25.0 mmol/L 21.0-32.0 [facility] Urea nitrogen/Creatinine [Mass ratio] 21.5 mg/mg 10-20 [facility] - Hematology and Cell countsOrdered By: La Nena Collazo on 05-05-2022 Erythrocyte distribution width (RBC) [Entitic vol] 45.6 fL 35.1-43.9 [facility] Erythrocyte distribution width (RBC) [Ratio] 13.3 % 11.6-14.6 [facility] Immature granulocytes/100 WBC (Bld) 0.300 % 0.0-0.9 [facility] Comment on above: IG% - Immature Granu locytes (promyelocytes, myelocytes and metamyelocytes) > 1% indicates that a LEFT SHIFT is Present. MCH (RBC) [Entitic mass] 30.7 pg 27.0-32.0 [facility] Nucleated RBC/100 WBC (Bld) [Ratio] 0 % 0-5 [facility] MCHC Auto (RBC) [Mass/Vol]Or dered By: La Nena Collazo on 05-05-2022 MCHC (RBC) [Mass/Vol] 32.8 g/dL 32-36 [facility] Mucus LM Ql (Urine sed)Order ed By: La Nena Collazo on 05-05-2022 Mucus Ql (Urine sed) 0 SEEN /hpf [facility] Nitrite Test strip Ql (U)Ord ered By: La Nena Collazo on 05-05-2022 Nitrite Ql (U) Negative Negative [facility] No Panel InformationOrdered By: La Nena Collazo on 05-05-2022 Troponin I High Sensitivity 4 pg/mL 3.0-54.0 [facility] Comment on above: Please Note: New Ariella t Units and Gender Specific Reference Ranges. For more information see Policy Stat Procedure [place] High Sensitivity Troponin (TNIH) and attachments. Estimated Creatinine Clearance Calc 44.81 ml/min [facility] Estimated GFR (MDRD) Amer 72 mL/min >60 [facility] Comment on above: GFR Calc Estimated GFR (MDRD) Non-Af Amer 59 mL/min >60 [facility] Comment on above: Non- GFR Calc Platelets bldOrdered By: Smita Collazo on 05-05-2022 Platelets (Bld) [#/Vol] 310 10*3/uL 150-450 [facility] Protein Test strip Ql (U)Ord ered By: La Nena Collazo on 05-05-2022 Protein Ql (U) Negative Negative [facility] Serum or plasma calcium jojo urement (mass/volume)Ordered By: La Nena Collazo on 05-05-2022 Calcium [Mass/Vol] 9.2 mg/dL 8.5-10.1 [facility] Serum or plasma creatinine m easurement (mass/volume)Ordered By: La Nena Collazo on 05-05-2022 Creatinine [Mass/Vol] 0.98 mg/dL 0.55-1.02 [facility] Comment on above: The validity of the calculated GFR & GFRAA in patients over 70 years has not been determined. Clinical correlation is essential. Serum or plasma urea nitroge n measurement (mass/volume)Ordered By: La Nena Collazo on 05-05-2022 Urea nitrogen [Mass/Vol] 21 mg/dL 7-18 [facility] Squamous epithelial cells de tection in urine sediment by light microscopyOrdered By: La Nena Collazo on 05-05-2022 Epithelial cells.squamous LM Ql (Urine sed) 0-5 SEEN /hpf 5-10 [facility] Thin prep Papanicolaou smear with manual screeningOrdered By: La Nena Collazo on 05-05-2022 Thin prep Papanicolaou smear with manual screening 7 5-15 [facility] Urine blood detectionOrdered By: La Nena Collazo on 05-05-2022 RBC Ql (U) Negative Negative [facility] RBC Ql (U) 0 SEEN /hpf 0-5 [facility] Urine clarityOrdered By: Smita Collazo on 05-05-2022 Clarity (U) Clear Clear [facility] Urine color determinationOrd ered By: La Nena Collazo on 05-05-2022 Color (U) Straw Yellow [facility] Urine glucose detectionOrder ed By: La Nena Collazo on 05-05-2022 Glucose Ql (U) Normal mg/dl Normal [facility] Urine leukocyte esterase det ection by dipstickOrdered By: La Nena Collazo on 05-05-2022 Leukocyte esterase Test strip Ql (U) 25 /ul Negative [facility] Urine pHOrdered By: La Nena ramos on 05-05-2022 pH (U) 6.0 [pH] 5.0 - 8.0 [facility] Urine sediment bacteria coun t by microscopy (number/high power field)Ordered By: La Nena Collazo on 05-05-2022 Bacteria LM.HPF (Urine sed) [#/Area] 0 /[HPF] None Seen [facility] Urine specific gravity measu rementOrdered By: La Nena Collazo on 05-05-2022 Specific gravity (U) [Rel density] 1.010 1.002-1.03 0 [facility] Urobilinogen Auto test strip Ql (U)Ordered By: La Nena Collazo on 05-05-2022 Urobilinogen Ql (U) Normal mg/dl Normal [facility] Absolute lymphocyte countOrd ered By: Dr. Alatorre on 04-24-2022 Lymphocytes Auto (Unsp spec) [#/Vol] 3.87 10*3/uL 0.83-4.51 [facility] Basophil percentageOrdered B y: Dr. Alatorre on 04-24-2022 Basophils/100 WBC (Bld) 0.9 % 0-1 [facility] Chloride [Moles/Vol] 107 mmol/L 98-107 [facility] Eosinophils/100 WBC (Bld) 6.8 % 0-5 [facility] Glucose [Mass/Vol] 104 mg/dL 74-106 [facility] Comment on above: Fasting Glucose resu lt from 100 to 125 mg/dL suggests IMPAIRED HOMEOSTASIS per A.D.A. criteria. Neutrophils (Bld) [#/Vol] 5.5 10*3/uL 2.0-7.7 [facility] Neutrophils/100 WBC (Bld) 49.5 % 47-70 [facility] Potassium [Moles/Vol] 3.8 mmol/L 3.5-5.1 [facility] Sodium [Moles/Vol] 142 mmol/L 136-145 [facility] WBC (Bld) [#/Vol] 11.1 10*3/uL 4.4-11.0 [facility] Blood erythrocytes count (nu mber/volume)Ordered By: Dr. Alatorre on 04-24-2022 RBC (Bld) [#/Vol] 4.79 10*6/uL 4.2-5.4 [facility] Blood hemoglobin measurement (mass/volume)Ordered By: Dr. Alatorre on 04-24-2022 Hemoglobin (Bld) [Mass/Vol] 14.5 g/dL 12.0-15.0 [facility] Blood lymphocytes/100 leukoc ytesOrdered By: Dr. Alatorre on 04-24-2022 Lymphocytes/100 WBC (Bld) 34.8 % 19-41 [facility] Blood monocytes/100 leukocyt esOrdered By: Dr. Alatorre on 04-24-2022 Monocytes/100 WBC (Bld) 7.7 % 0-10 [facility] Blood platelet mean volumeOr dered By: Dr. Alatorre on 04-24-2022 Platelet mean volume (Bld) [Entitic vol] 9.5 fL 6.2-12.0 [facility] Determination of erythrocyte mean corpuscular volume (MCV)Ordered By: Dr. Alatorre on 04-24-2022 MCV (RBC) [Entitic vol] 94.8 fL 81-99 [facility] Hematocrit Auto (Bld) [Volum e fraction]Ordered By: Dr. Alatorre on 04-24-2022 Hematocrit (Bld) [Volume fraction] 45.4 % 37-47 [facility] - Chemistry and C hemistry - challengeOrdered By: Dr. Alatorre on 04-24-2022 CO2 [Moles/Vol] 29.0 mmol/L 21.0-32.0 [facility] Urea nitrogen/Creatinine [Mass ratio] 20.2 mg/mg 10-20 [facility] - Hematology and Cell countsOrdered By: Dr. Alatorre on 04-24-2022 Erythrocyte distribution width (RBC) [Entitic vol] 46.0 fL 35.1-43.9 [facility] Erythrocyte distribution width (RBC) [Ratio] 13.2 % 11.6-14.6 [facility] Immature granulocytes/100 WBC (Bld) 0.300 % 0.0-0.9 [facility] Comment on above: IG% - Immature Granu locytes (promyelocytes, myelocytes and metamyelocytes) > 1% indicates that a LEFT SHIFT is Present. MCH (RBC) [Entitic mass] 30.3 pg 27.0-32.0 [facility] Nucleated RBC/100 WBC (Bld) [Ratio] 0 % 0-5 [facility] MCHC Auto (RBC) [Mass/Vol]Or dered By: Dr. Alatorre on 04-24-2022 MCHC (RBC) [Mass/Vol] 31.9 g/dL 32-36 [facility] No Panel InformationOrdered By: Dr. Alatorre on 04-24-2022 Estimated Creatinine Clearance Calc 43.91 ml/min [facility] Estimated GFR (MDRD) Amer 92 mL/min >60 [facility] Comment on above: GFR Calc Estimated GFR (MDRD) Non-Af Amer 76 mL/min >60 [facility] Comment on above: Non- GFR Calc Platelets bldOrdered By: Dr. Alatorre on 04-24-2022 Platelets (Bld) [#/Vol] 319 10*3/uL 150-450 [facility] Serum or plasma calcium jojo urement (mass/volume)Ordered By: Dr. Alatorre on 04-24-2022 Calcium [Mass/Vol] 9.3 mg/dL 8.5-10.1 [facility] Serum or plasma creatinine m easurement (mass/volume)Ordered By: Dr. Alatorre on 04-24-2022 Creatinine [Mass/Vol] 0.79 mg/dL 0.55-1.02 [facility] Comment on above: The validity of the calculated GFR & GFRAA in patients over 70 years has not been determined. Clinical correlation is essential. Serum or plasma urea nitroge n measurement (mass/volume)Ordered By: Dr. Alatorre on 04-24-2022 Urea nitrogen [Mass/Vol] 16 mg/dL 7-18 [facility] Thin prep Papanicolaou smear with manual screeningOrdered By: Dr. Alatorre on 04-24-2022 Thin prep Papanicolaou smear with manual screening 6 5-15 [facility] T3 FREE BLDon 10-13-2021 Free T3 [Mass/Vol] 3.1 pg/mL 2.3 - 4.1 pg/mL [facility] T4 FREE/FREE THYROXon 2021 Free T4 [Mass/Vol] 1.4 ng/dL 0.9 - 1.7 ng/dL [facility] TSH Don 10-13-2021 TSH Qn 1.750 m[IU]/L 0.270 - 4.200 mIU/L [facility] XR Shoulder - right 3 Viewso n 12-15-2020 IMPRESSION: 1. Degenerative changes 2. Question of a Hill-Sachs deformity of the humeral head Media Services Director: [employer] Transcribe Date/Time: Dec 15 2020 2:27P Dictated by : KHADIJAH SHEEHAN DO This examination was interpreted and the report reviewed and electronically signed by: KHADIJAH SHEEHAN DO on Dec 15 2020 2:29PM [facility] DIVISION OF RADIOLOGY * * *Final Report* [...] dislocations are seen. DIVISION OF RADIOLOGY Provider, Malika Brandee Lopez - 12/15/2020 * * *Final Report* [...] a Hill-Sachs deformity of the humeral head [facility] Trans[facility] Date/Time: Dec 15 2020 2:27P Dictated by : KHADIJAH SHEEHAN DO This examination was interpreted and the report reviewed and electronically signed by: KHADIJAH SHEEHAN DO on Dec 15 2020 2:29PM [facility]narrative[facility] - right 3 ViewsO rdered By: [facility] Provider on 12-15-2020 [facility] XR Hand - right PA and Later al and Obliqueon 08-30-2020 IMPRESSION: No acute osseous abnormality. Mild degenerative change. Media Services Director: [facility] Transcribe Date/Time: Aug 30 2020 2:37P Dictated by : LASHAE SINGH DO This examination was interpreted and the report reviewed and electronically signed by: ALSHAE SINGH DO on Aug 30 2020 2:40PM [facility] DIVISION OF RADIOLOGY * * *Final Report* [...] the ulnar styloid. DIVISION OF RADIOLOGY Provider, [facility] Brandee webb [place] - 08/30/2020 * * *Final Report* * [...] No acute osseous abnormality. Mild degenerative change. 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 Postsurgical change. No complication. Media Services Director[facility] Transcribe Date/Time: Jul 11 2020 1:24P Dictated by : ISABELA ORTEZ MD This examination was interpreted and the report reviewed and electronically signed by: ISABELA ORTEZ MD on Jul 11 2020 1:26PM [facility] DIVISION OF RADIOLOGY Radiology Study observation (narrative) [facility] No Panel InformationOrdered By: Ccf Provider on 07-11-2020 [facility] XR Lumbar spine 3 Viewson * [...] unremarkable in appearance. DIVISION OF RADIOLOGY Provider, [facility] - 07/11/2020 * * *Final Report* * [...] the thoracolumbar spine. Postsurgical change. No complication. Media Services Director: [employer] Transcribe Date/Time: Jul 11 2020 1:24P Dictated by : ISABELA ORTEZ MD This examination was interpreted and the report reviewed and electronically signed by: ISABELA ORTEZ MD on Jul 11 2020 1:26PM [facility] XR Thoracic spine AP and Lat [...] unremarkable in appearance. DIVISION OF RADIOLOGY Provider, Malika Brandee [facility] - 07/11/2020 * * *Final Report* [...] the thoracolumbar spine. Postsurgical change. No complication. Media Services Director: [employer] Transcribe Date/Time: Jul 11 2020 1:24P Dictated by : ISABELA ORTEZ MD This examination was interpreted and the report reviewed and electronically signed by: ISABELA ORTEZ MD on Jul 11 2020 1:26PM [facility] Vital Signs Date Time Vital Sign Value Performing Clinician Facility 10-15-2024 10:09 Body height 162.[address] Paulo Scott MD Work Phone: [facility] 10-15-2024 10:090400 Body mass index (BMI) [Ratio] 35.2 kg/m2 Dr. Paulo Scott MD Work Phone: [facility] 10-15-2024 10:090400 Body weight 92.[address] Paulo Scott MD Work Phone: [facility] 10-15-2024 10:09-0400 Diastolic blood pressure 87 mm[Hg] Dr. Paulo Scott MD Work Phone: [facility] 10-15-2024 10:09-0400 Heart rate 73 /min Dr. Paulo Scott MD Work Phone: [facility] 10-15-2024 10:09-0400 Respiratory rate 18 /min Dr. Paulo Scott MD Work Phone: [facility] 10-15-2024 10:09-0400 SaO2% (BldA) [Mass fraction] 94 % Dr. Paulo Scott MD Work Phone: 4(548)433-631738 [place] [address] 10-15-2024 10:09-0400 Systolic blood pressure 128 mm[Hg] Dr. Paulo Scott MD Work Phone: 9(157)788-593238 [place] [address] 09-24-2024 10:50-0400 Diastolic blood pressure 78 mm[Hg] Norman Radha ELECTRONIC CALIBRATION TECHNICIAN.CHAINMAN Work Phone: [facility] 09-24-2024 10:50-0400 Systolic blood pressure 136 mm[Hg] Norman Radha ELECTRONIC CALIBRATION TECHNICIAN.CHAINMAN Work Phone: [facility] 09-24-2024 10:47-0400 Body mass index (BMI) [Ratio] 35.19 kg/m2 Norman Radha ELECTRONIC CALIBRATION TECHNICIAN.CHAINMAN Work Phone: [facility] 09-24-2024 10:47-0400 Body weight 93 kg Norman Radha ELECTRONIC CALIBRATION TECHNICIAN.CHAINMAN Work Phone: [facility] 09-24-2024 10:47-0400 Heart rate 77 /min Norman Radha ELECTRONIC CALIBRATION TECHNICIAN.CHAINMAN Work Phone: [facility] 09-24-2024 10:47-0400 Respiratory rate 16 /min Norman Radha ELECTRONIC CALIBRATION TECHNICIAN.CHAINMAN Work Phone: [facility] 08-22-2024 15:25-0400 Body mass index (BMI) [Ratio] 36.3 kg/m2 Dr. Paulo Scott MD Work Phone: 1(954)254-649138 [place] [address] 08-22-2024 15:25-0400 Body weight 96.[address] Paulo Scott MD Work Phone: 9(922)865-509174 [place] [address] 08-22-2024 15:18-0400 Body height 162.[address] Paulo Scott MD Work Phone: 2(521)163-963074 [place] [address] 08-22-2024 15:18-0400 Body temperature 98.4 [degF] Dr. Paulo Scott MD Work Phone: 7(381)690-996574 [place] [address] 08-22-2024 15:18-0400 Diastolic blood pressure 77 mm[Hg] Dr. aPulo Scott MD Work Phone: 8(354)406-296674 [place] [address] 08-22-2024 15:18-0400 Heart rate 78 /min Dr. Paulo Scott MD Work Phone: 4(478)657-008774 [place] [address] 08-22-2024 15:18-0400 Respiratory rate 17 /min Dr. Paulo Scott MD Work Phone: 0(884)492-699274 [place] [address] 08-22-2024 15:18-0400 SaO2% (BldA) [Mass fraction] 97 % Dr. Paulo Scott MD Work Phone: 3(929)908-419374 [place] [address] 08-22-2024 15:18-0400 Systolic blood pressure 154 mm[Hg] Dr. Paulo Scott MD Work Phone: 6(339)467-589074 [place] [address] 05-21-2024 13:40-0500 Body mass index (BMI) [Ratio] 34.81 kg/m2 Juan Rodriguez ELECTRONIC CALIBRATION TECHNICIAN.JEWEL SORTER Work Phone: 9(736)530-297911 [place] [address] 05-21-2024 13:40-0500 Body weight 92 kg Juan Rodriguez ELECTRONIC CALIBRATION TECHNICIAN.JEWEL SORTER Work Phone: 8(223)349-712811 [place] [address] 05-21-2024 13:40-0500 Diastolic blood pressure 82 mm[Hg] Juan Rodriguez ELECTRONIC CALIBRATION TECHNICIAN.JEWEL SORTER Work Phone: 6(663)062-423811 [place] [address] 05-21-2024 13:40-0500 Heart rate 76 /min Juan Rodriguez ELECTRONIC CALIBRATION TECHNICIAN.JEWEL SORTER Work Phone: [facility] 05-21-2024 13:40-0500 Respiratory rate 16 /min Juan Casass ELECTRONIC CALIBRATION TECHNICIAN.JEWEL SORTER Work Phone: [facility] 05-21-2024 13:40-0500 Systolic blood pressure 128 mm[Hg] Juan Rodriguez ELECTRONIC CALIBRATION TECHNICIAN.JEWEL SORTER Work Phone: 6(789)010-133611 [place] [address] 04-08-2024 11:36-0500 Diastolic blood pressure 84 mm[Hg] Dr. Paulo Scott MD Work Phone: 5(645)459-478438 [place] [address] 04-08-2024 11:36-0500 Heart rate 78 /min Dr. Paulo Scott MD Work Phone: 0(489)571-592274 [place] [address] 04-08-2024 11:36-0500 Respiratory rate 18 /min Dr. Paulo Scott MD Work Phone: 5(610)443-386874 [place] [address] 04-08-2024 11:36-0500 SaO2% (BldA) [Mass fraction] 96 % Dr. Paulo Scott MD Work Phone: 2(620)521-259274 [place] [address] 04-08-2024 11:36-0500 Systolic blood pressure 168 mm[Hg] Dr. Paulo Scott MD Work Phone: 7(900)243-495038 [place] [address] 04-08-2024 09:50-0500 Body height 162.[address] Paulo Scott MD Work Phone: 4(731)496-652538 [place] [address] 04-08-2024 09:50-0500 Body mass index (BMI) [Ratio] 34.3 kg/m2 Dr. Paulo Scott MD Work Phone: 4(489)798-460638 [place] [address] 04-08-2024 09:50-0500 Body weight 90.[address] Paulo Scott MD Work Phone: 1(355)007-541274 [place] [address] 03-12-2024 10:36-0500 Body mass index (BMI) [Ratio] 34.8 kg/m2 Dr. Paulo Scott MD Work Phone: 5(711)193-941838 [place] [address] 03-12-2024 10:36-0500 Body weight 92.[address] Paulo Scott MD Work Phone: [facility] 01-23-2024 13:14-0500 Body mass index (BMI) [Ratio] 34.21 kg/m2 Norman Radha ELECTRONIC CALIBRATION TECHNICIAN.CHAINMAN Work Phone: [facility] 01-23-2024 13:14-0500 Body temperature 97 [degF] Norman Radha ELECTRONIC CALIBRATION TECHNICIAN.CHAINMAN Work Phone: [facility] 01-23-2024 13:14-0500 Body weight 90.4 kg Norman Radha ELECTRONIC CALIBRATION TECHNICIAN.CHAINMAN Work Phone: [facility] 01-23-2024 13:14-0500 Diastolic blood pressure 78 mm[Hg] Norman Radha ELECTRONIC CALIBRATION TECHNICIAN.CHAINMAN Work Phone: [facility] 01-23-2024 13:14-0500 Heart rate 80 /min Norman Radha ELECTRONIC CALIBRATION TECHNICIAN.CHAINMAN Work Phone: [facility] 01-23-2024 13:14-0500 SaO2% (BldA) [Mass fraction] 97 % Norman Radha ELECTRONIC CALIBRATION TECHNICIAN.CHAINMAN Work Phone: [facility] 01-23-2024 13:14-0500 Systolic blood pressure 128 mm[Hg] Norman Radha ELECTRONIC CALIBRATION TECHNICIAN.CHAINMAN Work Phone: [facility] 10-17-2023 10:10-0400 Body height 162.6 cm Juan Rodriguez ELECTRONIC CALIBRATION TECHNICIAN.JEWEL SORTER Work Phone: [facility] 10-17-2023 10:10-0400 Body mass index (BMI) [Ratio] 33.04 kg/m2 Juan Rodriguez ELECTRONIC CALIBRATION TECHNICIAN.JEWEL SORTER Work Phone: [facility] 10-17-2023 10:10-0400 Body weight 87.3 kg Juan Rodriguez ELECTRONIC CALIBRATION TECHNICIAN.JEWEL SORTER Work Phone: [facility] 10-17-2023 10:10-0400 Diastolic blood pressure 66 mm[Hg] Juan Rodriguez ELECTRONIC CALIBRATION TECHNICIAN.JEWEL SORTER Work Phone: [facility] 10-17-2023 10:10-0400 Heart rate 83 /min Juan Rodriguez ELECTRONIC CALIBRATION TECHNICIAN.JEWEL SORTER Work Phone: [facility] 10-17-2023 10:10-0400 Respiratory rate 14 /min Juan Rodriguez ELECTRONIC CALIBRATION TECHNICIAN.JEWEL SORTER Work Phone: [facility] 10-17-2023 10:10-0400 SaO2% (BldA) [Mass fraction] 95 % Juan Rodriguez ELECTRONIC CALIBRATION TECHNICIAN.JEWEL SORTER Work Phone: [facility] 10-17-2023 10:10-0400 Systolic blood pressure 128 mm[Hg] Juan Rodriguez ELECTRONIC CALIBRATION TECHNICIAN.JEWEL SORTER Work Phone: [facility] 09-17-2023 13:45-0400 Body mass index (BMI) [Ratio] 32.79 kg/m2 Paulo Scott MD Work Phone: [facility] 09-17-2023 13:45-0400 Body temperature 98.4 [degF] Paulo Scott MD Work Phone: [facility] 09-17-2023 13:45-0400 Body weight 86.64 kg Paulo Scott MD Work Phone: [facility] 09-17-2023 13:45-0400 Diastolic blood pressure 78 mm[Hg] Paulo Scott MD Work Phone: [facility] 09-17-2023 13:45-0400 Heart rate 87 /min Paulo Scott MD Work Phone: [facility] 09-17-2023 13:45-0400 Respiratory rate 18 /min Paulo Scott MD Work Phone: [facility] 09-17-2023 13:45-0400 SaO2% (BldA) [Mass fraction] 97 % Paulo Scott MD Work Phone: [facility] 09-17-2023 13:45-0400 Systolic blood pressure 128 mm[Hg] Paulo Scott MD Work Phone: [facility] 07-22-2023 16:17-0400 Body mass index (BMI) [Ratio] 33 kg/m2 Krislyn Aberegg PA Work Phone: [facility] 07-22-2023 16:17-0400 Body temperature 99.19 [degF] Krislyn Aberegg PA Work Phone: [facility] 07-22-2023 16:17-0400 Body weight 87.2 kg Krislyn Aberegg PA Work Phone: [facility] 07-22-2023 16:17-0400 Diastolic blood pressure 90 mm[Hg] Krislyn Aberegg PA Work Phone: [facility] 07-22-2023 16:17-0400 Heart rate 102 /min Krislyn Aberegg PA Work Phone: [facility] 07-22-2023 16:17-0400 Respiratory rate 18 /min Krislyn Aberegg PA Work Phone: [facility] 07-22-2023 16:17-0400 SaO2% (BldA) [Mass fraction] 96 % Krislyn Aberegg PA Work Phone: [facility] 07-22-2023 16:17-0400 Systolic blood pressure 144 mm[Hg] Krislyn Aberegg PA Work Phone: [facility] 07-04-2023 10:56-0400 Body height 162.6 cm Norman Radha ELECTRONIC CALIBRATION TECHNICIAN.CHAINMAN Work Phone: [facility] 07-04-2023 10:56-0400 Body temperature 98.91 [degF] Norman Radha ELECTRONIC CALIBRATION TECHNICIAN.CHAINMAN Work Phone: [facility] 07-04-2023 10:56-0400 Body weight 85.28 kg Norman Radha ELECTRONIC CALIBRATION TECHNICIAN.CHAINMAN Work Phone: [facility] 07-04-2023 10:56-0400 Diastolic blood pressure 70 mm[Hg] Norman Radha ELECTRONIC CALIBRATION TECHNICIAN.CHAINMAN Work Phone: [facility] 07-04-2023 10:56-0400 Heart rate 88 /min Norman Radha ELECTRONIC CALIBRATION TECHNICIAN.CHAINMAN Work Phone: [facility] 07-04-2023 10:56-0400 Respiratory rate 14 /min Norman Radha ELECTRONIC CALIBRATION TECHNICIAN.CHAINMAN Work Phone: [facility] 07-04-2023 10:56-0400 SaO2% (BldA) [Mass fraction] 96 % Norman Radha ELECTRONIC CALIBRATION TECHNICIAN.CHAINMAN Work Phone: [facility] 07-04-2023 10:56-0400 Systolic blood pressure 136 mm[Hg] Norman Radha ELECTRONIC CALIBRATION TECHNICIAN.CHAINMAN Work Phone: [facility] 06-19-2023 14:00-0400 Body temperature 97.6 [degF] Dr. Paulo Scott Work Phone: [facility] 06-19-2023 14:00-0400 Diastolic blood pressure 66 mm[Hg] Dr. Paulo Scott Work Phone: [facility] 06-19-2023 14:00-0400 Heart rate 78 /min Dr. Paulo Scott Work Phone: [facility] 06-19-2023 14:00-0400 Respiratory rate 16 /min Dr. Paulo Scott Work Phone: [facility] 06-19-2023 14:00-0400 SaO2% (BldA) [Mass fraction] 99 % Dr. Paulo Scott Work Phone: [facility] 06-19-2023 14:00-0400 Systolic blood pressure 130 mm[Hg] Dr. Paulo Scott Work Phone: [facility] 06-19-2023 12:33-0400 Body height 162.[address] Paulo Scott Work Phone: [facility] 04-23-2023 09:17-0500 Body temperature 98.1 [degF] Dr. Paulo Scott Work Phone: [facility] 04-23-2023 09:17-0500 Diastolic blood pressure 74 mm[Hg] Dr. Paulo Scott Work Phone: 6(094)676-109774 [place] [address] 04-23-2023 09:17-0500 Heart rate 64 /min Dr. Paulo Scott Work Phone: 5(649)662-930674 [place] [address] 04-23-2023 09:17-0500 Respiratory rate 18 /min Dr. Paulo Scott Work Phone: 8(318)657-847874 [place] [address] 04-23-2023 09:17-0500 SaO2% (BldA) [Mass fraction] 94 % Dr. Paulo Scott Work Phone: 4(347)099-347874 [place] [address] 04-23-2023 09:17-0500 Systolic blood pressure 117 mm[Hg] Dr. Paulo Scott Work Phone: 0(301)791-763774 [place] [address] 04-23-2023 07:37-0500 Body height 162.[address] Paulo Scott Work Phone: 5(733)319-845674 [place] [address] 04-23-2023 07:37-0500 Body mass index (BMI) [Ratio] 32.5 kg/m2 Dr. Paulo Scott Work Phone: 0(146)347-547874 [place] [address] 04-23-2023 07:37-0500 Body weight [address] Paulo Scott Work Phone: 2(168)833-575674 [place] [address] 04-14-2023 07:13-0500 Body mass index (BMI) [Ratio] 31.9 kg/m2 Dr. Paulo Scott Work Phone: 8(408)173-423674 [place] [address] 04-14-2023 07:13-0500 Body temperature 98 [degF] Dr. Paulo Scott Work Phone: 8(180)596-039974 [place] [address] 04-14-2023 07:13-0500 Body weight 84.[address] Paulo Scott Work Phone: 8(656)692-169674 [place] [address] 04-14-2023 07:13-0500 Diastolic blood pressure 92 mm[Hg] Dr. Paulo Scott Work Phone: 6(336)778-573674 [place] [address] 04-14-2023 07:13-0500 Heart rate 84 /min Dr. Paulo Scott Work Phone: [facility] 04-14-2023 07:13-0500 Respiratory rate 20 /min Dr. Paulo Scott Work Phone: [facility] 04-14-2023 07:13-0500 SaO2% (BldA) [Mass fraction] 94 % Dr. Paulo Scott Work Phone: [facility] 04-14-2023 07:13-0500 Systolic blood pressure 140 mm[Hg] Dr. Paulo Scott Work Phone: [facility] 02-21-2023 14:03-0500 Body height [facility] E[facility]RONIC CALIBRATION TECHNICIAN.JEWEL SORTER Work Phone: [facility] 02-21-2023 14:03-0500 Body weight 87.09 [facility] ELECTRONIC CALIBRATION TECHNICIAN.JEWEL SORTER Work Phone: [facility] 02-21-2023 14:03-0500 Diastolic blood pressure 74 mm[Hg] [facility] ELECTRONIC CALIBRATION TECHNICIAN.JEWEL SORTER Work Phone: [facility] 02-21-2023 14:03-0500 Heart rate 81 /min [facility] ELECTRONIC CALIBRATION TECHNICIAN.JEWEL SORTER Work Phone: [facility] 02-21-2023 14:03-0500 SaO2% (BldA) [Mass fraction] 97 % [facility] ELECTRONIC CALIBRATION TECHNICIAN.JEWEL SORTER Work Phone: [facility] 02-21-2023 14:03-0500 Systolic blood pressure 128 mm[Hg] Juan Rodriguez ELECTRONIC CALIBRATION TECHNICIAN.JEWEL SORTER Work Phone: [facility] 01-31-2023 14:47-0500 Body mass index (BMI) [Ratio] 32.4 kg/m2 Dr. Paulo Scott Work Phone: [facility] 01-31-2023 14:47-0500 Body weight 85.[address] Paulo Scott Work Phone: 7(951)739-935938 [place] [address] 01-31-2023 14:47-0500 Diastolic blood pressure 84 mm[Hg] Dr. Paulo Scott Work Phone: 7(176)656-037674 [place] [address] 01-31-2023 14:47-0500 Heart rate 78 /min Dr. Paulo Scott Work Phone: 0(154)102-792174 [place] [address] 01-31-2023 14:47-0500 Respiratory rate 18 /min Dr. Paulo Scott Work Phone: 1(053)253-860174 [place] [address] 01-31-2023 14:47-0500 SaO2% (BldA) [Mass fraction] 93 % Dr. Paulo Scott Work Phone: 5(698)421-458774 [place] [address] 01-31-2023 14:47-0500 Systolic blood pressure 134 mm[Hg] Dr. Paulo Scott Work Phone: 1(416)185-270174 [place] [address] 10-02-2022 12:52-0400 Body height 162.[address] Paulo Scott Work Phone: 1(027)609-836674 [place] [address] 10-02-2022 12:52-0400 Body mass index (BMI) [Ratio] 32.5 kg/m2 Dr. Paulo Scott Work Phone: 6(481)235-824074 [place] [address] 10-02-2022 12:52-0400 Body temperature 97.6 [degF] Dr. Paulo Scott Work Phone: 5(405)383-941574 [place] [address] 10-02-2022 12:52-0400 Body weight 86.[address] Paulo Scott Work Phone: 4(102)345-058974 [place] [address] 10-02-2022 12:52-0400 Diastolic blood pressure 80 mm[Hg] Dr. Paulo Scott Work Phone: 2(872)404-003974 [place] [address] 10-02-2022 12:52-0400 Heart rate 70 /min Dr. Paulo Scott Work Phone: 2(638)022-345374 [place] [address] 10-02-2022 12:52-0400 Respiratory rate 18 /min Dr. Paulo Scott Work Phone: [facility] 10-02-2022 12:52-0400 SaO2% (BldA) [Mass fraction] 97 % Dr. Paulo Scott Work Phone: [facility] 10-02-2022 12:52-0400 Systolic blood pressure 140 mm[Hg] Dr. Paulo Scott Work Phone: [facility] 09-19-2022 15:43-0400 Body temperature 97.3 [degF] Ryan Chicas MD Work Phone: [facility] 09-19-2022 15:43-0400 Body weight 88.45 kg Ryan Chicas MD Work Phone: [facility] 09-19-2022 15:43-0400 Diastolic blood pressure 82 mm[Hg] Ryan Chicas MD Work Phone: [facility] 09-19-2022 15:43-0400 Heart rate 85 /min Ryan Chicas MD Work Phone: [facility] 09-19-2022 15:43-0400 Respiratory rate 16 /min Ryan Chicas MD Work Phone: [facility] 09-19-2022 15:43-0400 SaO2% (BldA) [Mass fraction] 97 % Ryan Chicas MD Work Phone: [facility] 09-19-2022 15:43-0400 Systolic blood pressure 128 mm[Hg] Ryan Chicas MD Work Phone: [facility] 08-05-2022 16:22-0400 Diastolic blood pressure 75 mm[Hg] Dr. Paulo Scott Work Phone: [facility] 08-05-2022 16:22-0400 Heart rate 85 /min Dr. Paulo Scott Work Phone: [facility] 08-05-2022 16:22-0400 Respiratory rate 16 /min Dr. Paulo Scott Work Phone: [facility] 08-05-2022 16:22-0400 SaO2% (BldA) [Mass fraction] 93 % Dr. Paulo Scott Work Phone: 2(701)783-531238 [place] [address] 08-05-2022 16:22-0400 Systolic blood pressure 130 mm[Hg] Dr. Paulo Scott Work Phone: 7(201)600-376674 [place] [address] 08-05-2022 11:31-0400 Body mass index (BMI) [Ratio] 33.3 kg/m2 Dr. Paulo Scott Work Phone: 1(901)696-690174 [place] [address] 08-05-2022 11:31-0400 Body temperature 97.9 [degF] Dr. Paulo Scott Work Phone: 3(212)398-299274 [place] [address] 08-05-2022 11:31-0400 Body weight 87.[address] Paulo Scott Work Phone: 7(349)527-730374 [place] [address] 07-26-2022 13:53-0400 Body mass index (BMI) [Ratio] 33.3 kg/m2 Dr. Paulo Scott Work Phone: 5(481)101-005174 [place] [address] 07-26-2022 13:53-0400 Body weight 87.[address] Paulo Scott Work Phone: 1(553)696-423874 [place] [address] 07-26-2022 13:53-0400 Diastolic blood pressure 85 mm[Hg] Dr. Paulo Scott Work Phone: 5(626)458-797138 [place] [address] 07-26-2022 13:53-0400 Heart rate 70 /min Dr. Paulo Scott Work Phone: 2(371)165-451574 [place] [address] 07-26-2022 13:53-0400 Respiratory rate 16 /min Dr. Paulo Scott Work Phone: 6(495)141-980974 [place] [address] 07-26-2022 13:53-0400 Systolic blood pressure 147 mm[Hg] Dr. Paulo Scott Work Phone: [facility] 05-17-2022 14:48-0500 Body temperature 98.71 [degF] Paulo Scott MD Work Phone: [facility] 05-17-2022 14:48-0500 Body weight 88 kg Paulo Scott MD Work Phone: [facility] 05-17-2022 14:48-0500 Diastolic blood pressure 82 mm[Hg] Paulo Scott MD Work Phone: [facility] 05-17-2022 14:48-0500 Heart rate 83 /min Paulo Scott MD Work Phone: [facility] 05-17-2022 14:48-0500 Respiratory rate 18 /min Paulo Scott MD Work Phone: [facility] 05-17-2022 14:48-0500 SaO2% (BldA) [Mass fraction] 97 % Paulo Scott MD Work Phone: [facility] 05-17-2022 14:48-0500 Systolic blood pressure 136 mm[Hg] Paulo Scott MD Work Phone: [facility] 05-06-2022 14:28-0500 Body temperature 98.3 [degF] Dr. Paulo Scott Work Phone: [facility] 05-06-2022 14:28-0500 Diastolic blood pressure 70 mm[Hg] Dr. Paulo Scott Work Phone: [facility] 05-06-2022 14:28-0500 Heart rate 68 /min Dr. Paulo Scott Work Phone: [facility] 05-06-2022 14:28-0500 Inhaled oxygen flow rate 98 L/min Dr. Paulo Scott Work Phone: [facility] 05-06-2022 14:28-0500 Respiratory rate 18 /min Dr. Paulo Scott Work Phone: [facility] 05-06-2022 14:28-0500 SaO2% (BldA) [Mass fraction] 98 % Dr. Paulo Scott Work Phone: [facility] 05-06-2022 14:28-0500 Systolic blood pressure 124 mm[Hg] Dr. Paulo Scott Work Phone: 1(925)896-798074 [place] [address] 05-06-2022 04:35-0500 Body weight 89.[address] Paulo Scott Work Phone: 9(846)217-512274 [place] [address] 05-05-2022 19:36-0500 Body height 162.[address] Paulo Scott Work Phone: 9(101)777-422174 [place] [address] 05-05-2022 19:36-0500 Body mass index (BMI) [Ratio] 34.3 kg/m2 Dr. Paulo Scott Work Phone: 3(610)869-497674 [place] [address] 05-05-2022 19:00-0500 Heart rate 87 /min Dr. Paulo Scott Work Phone: 4(714)333-359374 [place] [address] 05-05-2022 17:42-0500 Body temperature 98.7 [degF] Dr. Paulo Scott Work Phone: 3(598)437-507574 [place] [address] 05-05-2022 17:42-0500 Diastolic blood pressure 77 mm[Hg] Dr. Paulo Scott Work Phone: 1(636)589-980074 [place] [address] 05-05-2022 17:42-0500 Respiratory rate 18 /min Dr. Paulo Scott Work Phone: 9(619)265-742274 [place] [address] 05-05-2022 17:42-0500 SaO2% (BldA) [Mass fraction] 100 % Dr. Paulo Scott Work Phone: 2(762)492-747674 [place] [address] 05-05-2022 17:42-0500 Systolic blood pressure 133 mm[Hg] Dr. Paulo Scott Work Phone: 6(655)580-515474 [place] [address] 05-05-2022 12:41-0500 Body height 162.[address] Paulo Scott Work Phone: 5(267)088-153774 [place] [address] 05-05-2022 12:41-0500 Body mass index (BMI) [Ratio] 33.3 kg/m2 Dr. Paulo Scott Work Phone: [facility] 05-05-2022 12:41-0500 Body weight 87.[address] Paulo Scott Work Phone: [facility] 04-26-2022 09:36-0500 Body weight 88 kg Juan Rodriguez ELECTRONIC CALIBRATION TECHNICIAN.JEWEL SORTER Work Phone: [facility] 04-26-2022 09:36-0500 Diastolic blood pressure 82 mm[Hg] Juan Rodriguez ELECTRONIC CALIBRATION TECHNICIAN.JEWEL SORTER Work Phone: [facility] 04-26-2022 09:36-0500 Heart rate 80 /min Juan Rodriguez ELECTRONIC CALIBRATION TECHNICIAN.JEWEL SORTER Work Phone: [facility] 04-26-2022 09:36-0500 Respiratory rate 16 /min Juan Rodriguez ELECTRONIC CALIBRATION TECHNICIAN.JEWEL SORTER Work Phone: [facility] 04-26-2022 09:36-0500 Systolic blood pressure 126 mm[Hg] Juan Rodriguez ELECTRONIC CALIBRATION TECHNICIAN.JEWEL SORTER Work Phone: [facility] 04-24-2022 19:56-0500 Diastolic blood pressure 90 mm[Hg] Dr. Paulo Scott Work Phone: [facility] 04-24-2022 19:56-0500 Heart rate 61 /min Dr. Paulo Scott Work Phone: [facility] 04-24-2022 19:56-0500 Respiratory rate 17 /min Dr. Paulo Scott Work Phone: 7(887)981-804638 [place] [address] 04-24-2022 19:56-0500 SaO2% (BldA) [Mass fraction] 97 % Dr. Paulo Scott Work Phone: [facility] 04-24-2022 19:56-0500 Systolic blood pressure 158 mm[Hg] Dr. Paulo Scott Work Phone: 2(760)015-567738 [place] [address] 04-24-2022 14:37-0500 Body height 162.[address] Paulo Scott Work Phone: 2(626)530-166938 [place] [address] 04-24-2022 14:37-0500 Body mass index (BMI) [Ratio] 34.3 kg/m2 Dr. Paulo Scott Work Phone: 2(538)968-751774 [place] [address] 04-24-2022 14:37-0500 Body temperature 98.3 [degF] Dr. Paulo Scott Work Phone: 3(980)467-223174 [place] [address] 04-24-2022 14:37-0500 Body weight 90.[address] Paulo Scott Work Phone: 0(642)902-056774 [place] [address] 04-03-2022 06:25-0500 Body mass index (BMI) [Ratio] 33.6 kg/m2 Dr. Paulo Scott Work Phone: 8(570)829-974274 [place] [address] 04-03-2022 06:25-0500 Body temperature 98.1 [degF] Dr. Paulo Scott Work Phone: 0(683)596-739274 [place] [address] 04-03-2022 06:25-0500 Body weight 88.[address] Paulo Scott Work Phone: 2(749)475-435874 [place] [address] 04-03-2022 06:25-0500 Diastolic blood pressure 73 mm[Hg] Dr. Paulo Scott Work Phone: 1(020)868-877374 [place] [address] 04-03-2022 06:25-0500 Heart rate 78 /min Dr. Paulo Scott Work Phone: 5(858)460-958774 [place] [address] 04-03-2022 06:25-0500 Respiratory rate 16 /min Dr. Paulo Scott Work Phone: 3(290)188-984474 [place] [address] 04-03-2022 06:25-0500 SaO2% (BldA) [Mass fraction] 94 % Dr. Paulo Scott Work Phone: 5(063)161-819974 [place] [address] 04-03-2022 06:25-0500 Systolic blood pressure 126 mm[Hg] Dr. Paulo Scott Work Phone: 0(787)895-539974 [place] [address] 09-18-2021 11:55-0400 Body height 162.[address] Paulo Scott Work Phone: [facility] Work Phone: 09-18-2021 11:55-0400 Body mass index (BMI) [Ratio] 33.3 kg/m2 Dr. Paulo Scott Work Phone: [facility] Work Phone: 09-18-2021 11:55-0400 Body temperature 98.7 [degF] Dr. Paulo Scott Work Phone: [facility] Work Phone: 09-18-2021 11:55-0400 Body weight 87.[address] Paulo Scott Work Phone: [facility] Work Phone: 09-18-2021 11:55-0400 Diastolic blood pressure 83 mm[Hg] Dr. Paulo Scott Work Phone: [facility] Work Phone: 09-18-2021 11:55-0400 Heart rate 81 /min Dr. Paulo Scott Work Phone: [facility] Work Phone: 09-18-2021 11:55-0400 Respiratory rate 16 /min Dr. Paulo Scott Work Phone: [facility] Work Phone: 09-18-2021 11:55-0400 SaO2% (BldA) [Mass fraction] 96 % Dr. Paulo Scott Work Phone: [facility] Work Phone: 09-18-2021 11:55-0400 Systolic blood pressure 140 mm[Hg] Dr. Paulo Scott Work Phone: [facility] Work Phone: 08-23-2021 16:52-0400 Body weight 87.73 kg Paulo Scott MD Work Phone: [facility] 08-23-2021 16:52-0400 Diastolic blood pressure 74 mm[Hg] Paulo Scott MD Work Phone: [facility] 08-23-2021 16:52-0400 Heart rate 75 /min Paulo Scott MD Work Phone: [facility] 08-23-2021 16:52-0400 Respiratory rate 16 /min Paulo Scott MD Work Phone: [facility] 08-23-2021 16:52-0400 SaO2% (BldA) [Mass fraction] 99 % Paulo Scott MD Work Phone: [facility] 08-23-2021 16:52-0400 Systolic blood pressure 126 mm[Hg] Paulo Scott MD Work Phone: [facility] 08-06-2021 10:38-0400 Body mass index (BMI) [Ratio] 33.5 kg/m2 Dr. Paulo Scott Work Phone: [facility] Work Phone: 08-06-2021 10:38-0400 Body temperature 97.2 [degF] Dr. Paulo Scott Work Phone: [facility] Work Phone: 08-06-2021 10:38-0400 Body weight 88.[address] Paulo Scott Work Phone: [facility] Work Phone: 08-06-2021 10:38-0400 Diastolic blood pressure 79 mm[Hg] Dr. Paulo Scott Work Phone: [facility] Work Phone: 08-06-2021 10:38-0400 Heart rate 79 /min Dr. Paulo Scott Work Phone: [facility] Work Phone: 08-06-2021 10:38-0400 Respiratory rate 16 /min Dr. Paulo Scott Work Phone: [facility] Work Phone: 08-06-2021 10:38-0400 SaO2% (BldA) [Mass fraction] 94 % Dr. Paulo Scott Work Phone: [facility] Work Phone: 08-06-2021 10:38-0400 Systolic blood pressure 122 mm[Hg] Dr. Paulo Scott Work Phone: [facility] Work Phone: Encounters Encounter Date Encounter Type Care Provider Facility Start: 11-30-2024 End: 12-01-2024 Refill Paulo Scott MD Work Phone: [facility] [place] Comment on above: Refill Request Start: 11-29-2024 End: 11-30-2024 Refill Juan Rodriguez APRN.CNS Work Phone: Internal [facility] Comment on above: Refill Request Start: 10-31-2024 End: 11-01-2024 Refill Paulo Scott MD Work Phone: [facility] Comment on above: Refill Request Start: 10-15-2024 End: 10-15-2024 Patient encounter procedure G[facility] Work Phone: Start: 10-15-2024 End: 10-15-[address] Paulo Scott MD Work Phone: -[facility] Start: 09-29-2024 End: 10-04-2024 ambulatory Paulo Scott MD Work Phone: Internal [facility] Start: 09-28-2024 End: 11-28-2024 Follow-up encounter Norman Garcia APRN.CHAINMAN Work Phone: [facility] Start: 09-24-2024 End: 09-24-2024 Patient encounter procedure Norman Garcia APRN.CHAINMAN Work Phone: Internal [facility] Comment on above: Diet-controlled diab etes mellitus (HCC) (Primary Dx); Essential hypertension; Mixed hyperlipidemia; Acquired hypothyroidism; Obesity, Class II, BMI 35-39.9; Encounter for therapeutic drug monitoring; Vitamin D deficiency; Anxiety; Bursitis of other bursa of left hip Start: 09-24-2024 End: 09-24-2024 ambulatory NORMAN JUNER Facility:[facility] Start: 08-31-2024 End: 08-31-2024 Refill Paulo Scott MD Work Phone: [facility] [place] Comment on above: Refill Request; Medi cation Problem (Patient almost out) Start: 08-27-2024 End: 08-30-2024 Patient Msg Paulo Scott MD Work Phone: [facility] [place] Comment on above: A Message About Your Refill Request Start: 08-26-2024 End: 08-30-2024 Refill Paulo Scott MD Work Phone: [facility] [place] Comment on above: Refill Request Start: 08-25-2024 End: 08-25-2024 Telephone encounter Paulo Scott MD Work Phone: [facility] [place] Comment on above: Medication Problem Start: 08-22-2024 End: 08-22-2024 Emergency department patient visit Dr. Paulo Scott MD Work Phone: -Emergency Department Work Phone: Start: 06-18-2024 End: 06-18-2024 Patient encounter procedure Raul Casper [facility] Work Phone: Start: 06-18-2024 End: 06-18-2024 ambulatory Paulo Scott Facility:[facility] Start: 06-18-2024 End: 06-18-[address] Callum Trimble DO [facility] Work Phone: Start: 06-18-2024 End: 06-18-2024 ambulatory Callum Trimble Facility:[facility] Start: 05-26-2024 End: 05-26-[address] Paulo Scott MD Work Phone: [facility] Work Phone: Start: 05-26-2024 End: 05-26-[address] Crystal Paz MD -Radiology, [facility] Work Phone: Start: 05-26-2024 End: 05-26-2024 ambulatory Crystal Paz Facility:[facility] Start: 05-21-2024 End: 05-21-2024 ambulatory JUAN RODRIGUEZ Facility:[facility] Start: 05-21-2024 End: 05-21-2024 Office outpatient visit 25 minutes Juan Rodriguez ELECTRONIC CALIBRATION TECHNICIAN.JEWEL SORTER Work Phone: [facility] [place] Comment on above: Acquired hypothyroid ism (Primary Dx); Primary hypertension; Mixed hyperlipidemia; Chronic pain of left knee; Chronic bilateral low back pain with bilateral sciatica; Encounter for immunization Start: 04-16-2024 End: 04-16-[address] [facility] Work Phone: Start: 04-16-2024 End: 04-16-2024 ambulatory Callum Trimble Facility:[facility] [place] Start: 04-09-2024 End: 04-09-[address] [facility] Work Phone: Start: 04-09-2024 End: 04-09-2024 ambulatory Callum Trimble Facility:[facility] [facility] Start: 04-08-2024 End: 04-08-2024 Patient encounter procedure Raul Casper DO -[facility] Work Phone: Start: 04-08-2024 End: 04-08-2024 ambulatory Raul Casper Facility:[facility] Start: 04-02-2024 End: 04-02-[address] [facility] Work Phone: Start: 04-02-2024 End: 04-02-2024 ambulatory Callum Trimble Facility:[facility] [place] Start: 03-12-2024 End: 03-12-[address] [facility] Work Phone: Start: 03-12-2024 End: 03-12-2024 ambulatory Callum [facility] Facility:[facility] Start: 03-05-2024 End: 03-05-2024 ambulatory PAULO SCOTT Facility:[facility] Start: 03-05-2024 End: 03-05-2024 Subsequent hospital visit by physician [facility] Comment on above: Encounter for screen ing mammogram for breast cancer [Z12.31] Start: 02-22-2024 End: 02-27-2024 Refill Paulo Scott MD Work Phone: [facility] [place] Comment on above: Refill Request Start: 02-20-2024 End: 02-20-2024 Patient encounter procedure Raul Casper DO [facility] Work Phone: Start: 02-20-2024 End: 02-20-2024 Refill Juan Rodriguez APRN.JEWEL SORTER Work Phone: [facility] [place] Comment on above: Refill Request Start: 02-11-2024 End: 02-11-2024 Refill Paulo Scott MD Work Phone: [facility] [place] Comment on above: Refill Request Start: 01-30-2024 End: 01-30-2024 ambulatory [facility] Facility:[facility] Start: 01-23-2024 End: 01-23-2024 Patient encounter procedure Norman Garcia ELECTRONIC CALIBRATION TECHNICIAN.CHAINMAN Work Phone: [facility] [place] Comment on above: Acute cough (Primary Dx); Acquired hypothyroidism; Spinal stenosis of lumbar region, unspecified whether neurogenic claudication present; Primary hypertension; Mixed hyperlipidemia; Vitamin D deficiency; Diet-controlled diabetes mellitus (HCC); Screening for depression Start: 01-23-2024 End: 01-23-2024 ambulatory NORMAN GARCIA Facility:[facility] Start: 01-23-2024 End: 01-23-2024 ambulatory [facility] Start: 01-16-2024 End: 01-16-2024 ambulatory [facility] Start: 12-26-2023 End: 12-26-2023 ambulatory [facility] Start: 12-24-2023 End: 12-24-2023 Refill Paulo Scott MD Work Phone: [facility] [place] Comment on above: Refill Request Start: 12-01-2023 End: 12-01-2023 ambulatory Callum Trimble [facility] Start: 11-28-2023 End: 11-28-2023 ambulatory PAULO SCOTT Facility:[facility] Start: 11-18-2023 End: 11-18-2023 Emergency department patient visit Roque Ho Facility:[facility] Start: 11-11-2023 End: 11-11-2023 Refill Paulo Scott MD Work Phone: [facility] [place] Comment on above: Refill Request Start: 10-17-2023 Telephone encounter Paulo hardwick MD Work Phone: [facility] [place] Comment on above: Future Appointment Start: 10-17-2023 End: 10-17-2023 ambulatory JUAN RODRIGUEZ Facility:[facility] Start: 10-17-2023 End: 10-17-2023 Office outpatient visit 15 minutes Juan Rodriguez ELECTRONIC CALIBRATION TECHNICIAN.JEWEL SORTER Work Phone: Internal [facility] [place] Comment on above: External hemorrhoid (Primary Dx) Start: 10-15-2023 ambulatory Paulo lockett MD Work Phone: Internal Medicine [facility] Start: 09-22-2023 Telephone encounter Paulo hardwick MD Work Phone: [facility] [place] Comment on above: Medication Problem Start: 09-17-2023 End: 09-17-2023 Office outpatient visit 25 minutes Paulo Scott MD Work Phone: [facility] [place] Comment on above: DDD (degenerative di sc disease), lumbar (Primary Dx); Protrusion of lumbar intervertebral disc; Spinal stenosis of lumbar region, unspecified whether neurogenic claudication present; Vertigo; Anxiety; Primary hypertension; Mixed hyperlipidemia; Vitamin D deficiency; IFG (impaired fasting glucose); Encounter for long-term current use of medication Start: 08-21-2023 Refill Paulo lockett MD Work Phone: [facility] [place] Comment on above: Refill Request Start: 07-22-2023 End: 07-22-2023 Subsequent hospital visit by physician [facility] [place] Work Phone: Radiology Comment on above: Acute pain of both k nees [M25.561, M25.562] Start: 07-22-2023 End: 07-22-2023 Patient encounter procedure Whit CASTANEDA Work Phone: [facility] Comment on above: Acute pain of both k nees (Primary Dx) Start: 07-04-2023 Telephone encounter Paulo hardwick MD Work Phone: [facility] [place] Comment on above: Insurance Authorizat ion Start: 07-04-2023 End: 07-04-2023 Patient encounter procedure Norman Garcia APRN.CHAINMAN Work Phone: [facility] [place] Comment on above: Strain of lumbar reg ion, subsequent encounter (Primary Dx); Chronic bilateral low back pain with bilateral sciatica Start: 07-03-2023 E-mail encounter fro m caregiver [facility] Start: 07-03-2023 Patient encounter procedure [facility] [place] Comment on above: appointment cancella tion Start: 06-19-2023 End: 06-19-2023 Emergency department patient visit Dr. Paulo Scott Work Phone: [facility] Work Phone: Start: 04-28-2023 Refill Juan Rodriguez APRN.JEWEL SORTER Work Phone: Internal [facility] [place] Comment on above: Refill Request Start: 04-23-2023 Non-patient / Non-visit Dr. Octavia Scott Work Phone: [facility] Start: 04-23-2023 End: 04-23-2023 Admission to same day surgery center Dr. Paulo Scott Work Phone: [facility] Work Phone: Start: 04-23-2023 End: 04-23-[address] Paulo Scott Work Phone: [facility] Work Phone: Start: 04-14-2023 End: 04-14-[address] [facility] Work Phone: Start: 03-05-2023 End: 03-05-[address] Paulo Scott Work Phone: [facility] Work Phone: Start: 02-21-2023 End: 02-21-2023 Office outpatient visit 25 minutes Juan Rodriguez APRN.JEWEL SORTER Work Phone: [facility] [place] Comment on above: Acquired hypothyroid ism (Primary Dx); Essential hypertension; Chronic bilateral low back pain with bilateral sciatica; Elevated glucose; Mixed hyperlipidemia; Encounter for immunization; Vertigo; Anxiety Start: 02-17-2023 Telephone encounter Juan godinez APRN.JEWEL SORTER Work Phone: [facility] [place] Comment on above: Lab Orders Start: 02-12-2023 Refill Paulo lockett MD Work Phone: [facility] [place] Comment on above: Refill Request Start: 01-31-2023 End: 01-31-[address] Paulo Scott Work Phone: [facility] Work Phone: Start: 11-06-2022 Telephone encounter Paulo hardwick MD Work Phone: [facility] [place] Comment on above: Patient Update Start: 10-26-2022 Refill Norman Garcia APRN.CHAINMAN Work Phone: Internal [facility] [place] Comment on above: Refill Request Start: 10-17-2022 End: 10-17-[address] Paulo Scott Work Phone: [facility] Work Phone: Start: 10-17-2022 End: 10-17-[address] Paulo Scott Work Phone: [facility] Work Phone: Start: 10-15-2022 End: 10-15-[address] Paulo Scott Work Phone: [facility] Work Phone: Start: 10-15-2022 End: 10-15-[address] Paulo Scott Work Phone: [facility], Specimen Work Phone: Start: 10-02-2022 End: 10-02-[address] Paulo Scott [facility] Work Phone: Start: 09-27-2022 End: 09-27-[address] Paulo Scott Work Phone: [facility] Work Phone: Start: 09-24-2022 Refill Norman Garcia APRN.CNP Work Phone: [facility] [place] Comment on above: Refill Request Start: 09-19-2022 End: 09-19-2022 Patient encounter procedure Ryan Chicas MD Work Phone: [facility] Comment on above: Rash (Primary Dx); Intertrigo Start: 09-18-2022 Refill Paulo lockett MD Work Phone: [facility] [place] Comment on above: Refill Request Start: 09-16-2022 Documentation procedure Mammog annalisa Coordinator [facility] Start: 09-16-2022 Letter encounter Mammography Coordinator [facility] Department Start: 09-13-2022 End: 09-13-2022 Subsequent hospital visit by physician [facility] Comment on above: Encounter for screen ing mammogram for breast cancer [Z12.31] Start: 09-09-2022 Refill Paulo lockett MD Work Phone: [facility] [place] Comment on above: Refill Request Start: 08-19-2022 Telephone encounter Paulo hardwick MD Work Phone: [facility] [place] Comment on above: Rx transferred to [facility] Start: 08-05-2022 End: 08-05-2022 Emergency department patient visit Dr. Paulo Scott Work Phone: [facility] Work Phone: Start: 07-30-2022 Refill Norman Radha ELECTRONIC CALIBRATION TECHNICIAN.CHAINMAN Work Phone: [facility] [place] Comment on above: Refill Request Start: 07-26-2022 End: 07-26-[address] Paulo Scott Work Phone: [facility] Work Phone: Start: 06-10-2022 Telephone encounter Paulo hardwick MD Work Phone: [facility] [place] Comment on above: Opened In Error Start: 05-22-2022 Telephone encounter Paulo hardwick MD Work Phone: [facility] [place] Comment on above: OT Update Start: 05-21-2022 Refill Norman Radha ELECTRONIC CALIBRATION TECHNICIAN.CHAINMAN Work Phone: [facility] [place] Comment on above: Refill Request Start: 05-17-2022 End: 05-17-2022 Office outpatient visit 25 minutes Paulo Scott MD Work Phone: [facility] [place] Comment on above: Pain in both lower e xtremities (Primary Dx); Bilateral leg edema; Imbalance; Cold sore Start: 05-09-2022 Telephone encounter Paulo hardwick MD Work Phone: [facility] [place] Comment on above: [facility], OT update/ve rbal order Start: 05-07-2022 Telephone encounter Paulo hardwick MD Work Phone: [facility] [place] Comment on above: [facility], PT, plan of care; FYI-No Action Needed Start: 05-06-2022 Non-patient / Non-visit Dr. Octavia Scott Work Phone: [facility] Start: 05-05-2022 Non-patient / Non-visit Dr. Octavia Scott Work Phone: [facility] Start: 05-05-2022 End: 05-06-2022 Evaluation and management of inpatient Dr. Paulo Scott Work Phone: [facility] 3 Start: 05-05-2022 End: 05-06-[address] Paulo Scott Work Phone: [facility] Work Phone: Start: 04-26-2022 End: 04-26-2022 Office outpatient visit 25 minutes Juan Rodriguez APRN.CNS Work Phone: Internal [facility] Comment on above: Submandibular lympha denopathy (Primary Dx); Primary hypertension; Throat pain Start: 04-24-2022 End: 04-24-2022 Emergency department patient visit Dr. Paulo Scott Work Phone: [facility] Start: 04-24-2022 ambulatory Paulo lockett MD Work Phone: Internal [facility] Comment on above: Face Swelling Start: 04-03-2022 End: 04-03-[address] Paulo Scott Work Phone: [facility] Start: 03-19-2022 Refill Norman Garcia APRN.CHAINMAN Work Phone: Internal [facility] Comment on above: Refill Request Start: 02-25-2022 Telephone encounter Paulo hardwick MD Work Phone: Internal [facility] Comment on above: Results Start: 02-19-2022 Refill Paulo lockett MD Work Phone: [facility] [place] Comment on above: Refill Request Start: 12-07-2021 End: 12-07-2021 ambulatory Mi Nurse Work Phone: [facility] [place] Start: 11-01-2021 Refill Paulo lockett MD Work Phone: [facility] [place] Comment on above: Refill Request Start: 10-04-2021 Telephone encounter Paulo hardwick MD Work Phone: [facility] [place] Comment on above: Patient Question Start: 09-18-2021 End: 09-18-2021 Emergency department patient visit Dr. Paulo Scott Work Phone: [facility] Start: 08-31-2021 Telephone encounter Paulo hardwick MD Work Phone: [facility] [place] Comment on above: Medication Problem Start: 08-23-2021 End: 08-23-2021 Office outpatient visit 25 minutes Paulo Scott MD Work Phone: [facility] [place] Comment on above: Acquired hypothyroid ism (Primary Dx); IFG (impaired fasting glucose); Vitamin D deficiency; Essential hypertension; Vertigo; OAB (overactive bladder); Dysphagia, unspecified type; Anxiety Start: 08-22-2021 ambulatory Paulo lockett MD Work Phone: Internal Medicine [facility] Start: 08-06-2021 End: 08-06-[address] Paulo Scott Work Phone: [facility] Start: 05-25-2021 End: 05-25-[address] Paulo Scott Work Phone: [facility], [facility] Start: 12-15-2020 End: 12-15-2020 Subsequent hospital visit by physician [facility] Work Phone: Radiology Comment on above: Acute pain of right shoulder [M25.511] Start: 08-30-2020 End: 08-30-2020 Subsequent hospital visit by physician [facility] [place] Work Phone: Radiology Comment on above: Trigger middle finge r of right hand [M65.331] Start: 07-22-2020 End: 07-22-2020 Subsequent hospital visit by physician Quoc Diaz MD Work Phone: [facility] Comment on above: Family history of co thom cancer; Family history of gene mutation; Personal history of colonic polyps Start: 07-11-2020 End: 07-11-2020 Subsequent hospital visit by physician [facility] [place] Work Phone: Radiology Comment on above: Back pain of thoraco lumbar region [M54.5, M54.6] Procedures Date Procedure Procedure Detail Performing Clinician Start: 06-18-2024 X-ray of lumbar spine, two or three views Dr. Paulo Scott MD Work Phone: Start: 06-18-2024 Plain x-ray of pelvis and lower extremity Dr. Paulo Scott MD Work Phone: Start: 05-26-2024 Plain X-ray of shoulder Dr. Paulo lockett MD Work Phone: Start: 04-08-2024 MRI of small intestine Dr. Paulo Scott MD Work Phone: Start: 03-12-2024 X-ray of knee, four or more views Dr. Paulo Scott MD Work Phone: Start: 01-23-2024 Adult depression screening assessment Norman Garcia APRN.CNP Work Phone: Start: 11-28-2023 Lipid 1996 panel - Serum or Plasma [facility] [place] Work Phone: Start: 08-29-2023 Lipid 1996 panel - Serum or Plasma Paulo Scott MD Work Phone: Start: 07-22-2023 Radiologic exam knee complete 4/more views Whit Demarco PA Work Phone: Start: 06-19-2023 CT of lumbar spine Dr. Paulo Scott Work Phone: Start: 04-23-2023 End: 04-23-[address] Paulo Scott Work Phone: Start: 02-19-2023 Lipid 1996 panel - Serum or Plasma Juan Rodriguez APRN.JEWEL SORTER Work Phone: Start: 10-17-2022 Clostridium difficile detection [...] Radex hand minimum 3 views Juan Rodriguez APRN.JEWEL SORTER Work Phone: Start: 07-21-2020 Mammography Paulo Scott MD Work Phone: Start: 07-11-2020 Radex spine lumbosacral 2/3 views Paulo Scott MD Work Phone: Start: 07-11-2019 History of cholecystectomy S/P laparoscopic cholecystectomy Paulo Scott MD Work Phone: Start: 01-15-2015 Colonoscopy Paulo Scott MD Work Phone: Plan of Treatment Date Care Activity Detail Author Start: 04-23-2030 Screening for malign ant neoplasm of colon [facility] Start: 11-27-2028 Lipid panel Lipid Screening [facility] Start: 08-28-2028 Lipid panel Lipid Screening [facility] Start: 02-20-2028 Lipid 1996 panel - S ana or Plasma Lipid Screening [facility] Start: 02-20-2028 Lipid panel Lipid Screening [facility] Start: 08-29-2027 Lipid 1996 panel - S ana or Plasma Lipid Screening [facility] Start: 08-29-2027 LIPID SCREEN LIPID SCREEN [facility] Start: 11-27-2026 Diabetes Screening Diabetes Screenin g [facility] Start: 08-28-2026 [facility] Start: 08-04-2026 LIPID SCREEN LIPID SCREEN [facility] Start: 02-19-2026 Diabetes Screening Diabetes Screenil g [facility] Start: 09-24-2025 Annual PCP Team [facility] Disease Visit Annual PCP Team Chronic Disease Visit [facility] Start: 09-24-2025 Hepatitis B surface antibody level LDL Cholesterol [facility] Start: 08-28-2025 DIABETES SCREEN DIABETES SCREEN [facility] Start: 08-28-2025 Diabetes Screening Diabetes Screenil g [facility] Start: 05-21-2025 BP Controlled (<130/80) BP Controlle d (<130/80) [facility] Start: 05-21-2025 Covid-19 Vaccine ( season) Covid-19 Vaccine () [facility] Comment on above: Postponed from 11/15 (Declined at this time) Start: 03-27-2025 Hemoglobin A1c measurement HbA1C [facility] Start: 03-05-2025 Screening for malign ant neoplasm of breast Mammogram Screening [facility] Start: 03-04-2025 End: 03-04-2025 Patient encounter procedure 03/04/2025 3:20 PM EST Office Visit [facility] [place] [address] [place] [address] Paulo Scott MD [address] [place] [address] 4 month f/u [facility] [place] Comment on above: 4 month f/u Start: 2025 RSV Vaccine (1 - 1-d ose 75+ series) RSV Vaccine (1 - 1-dose 75+ series) [facility] Start: 02-15-2025 DIABETES SCREEN DIABETES SCREEN [facility] Start: 01-22-2025 Annual PCP Team [facility] Disease Visit Annual PCP Team Chronic Disease Visit [facility] Start: 01-22-2025 BP Controlled (<130/80) BP Controlle d (<130/80) [facility] Start: 01-22-2025 Depression Screening Depression Scre ening [facility] Start: 11-27-2024 Hepatitis B surface antibody level LDL Cholesterol [facility] Start: 11-15-2024 Influenza vaccination [facility] Start: 10-16-2024 BP Controlled (<130/80) BP Controlle d (<130/80) [facility] Start: 09-29-2024 End: 12-29-2024 Microalbumin/Creatinine [Mass Ratio] in Urine ALBUMIN/CREATININE RATIO, URINE Lab Routine Diet-controlled diabetes mellitus (HCC) Expected: 09/29/2024, Expires: 12/29/2024 [facility] Work Phone: Comment on above: Expected: 09/29/2024 , Expires: 12/29/2024 Start: 09-24-2024 End: 12-24-2024 25-hydroxyvitamin D3 [Mass/volume] in Serum or Plasma [facility] Comment on above: Expected: 09/24/2024 , Expires: 12/24/2024 Start: 09-24-2024 End: 12-24-2024 Comprehensive metabolic 2000 panel - Serum or Plasma [facility] Work Phone: Comment on above: Expected: 09/24/2024 , Expires: 12/24/2024 Start: 09-24-2024 End: 12-24-2024 Hemoglobin A1c in Blood [facility] Comment on above: Expected: 09/24/2024 , Expires: 12/24/2024 Start: 09-24-2024 End: 12-24-2024 LIPID PANEL, NONFASTING [facility] Comment on above: Expected: 09/24/2024 , Expires: 12/24/2024 Start: 09-24-2024 End: 12-24-2024 Thyrotropin [Units/volume] in Serum or Plasma [facility] Comment on above: Expected: 09/24/2024 , Expires: 12/24/2024 Start: 09-24-2024 End: 09-24-2024 Patient encounter procedure [facility] [place] Comment on above: 4 month f/u Start: 09-16-2024 Annual PCP Team [facility] Disease Visit Annual PCP Team Chronic Disease Visit [facility] Start: 09-16-2024 BP Controlled (<130/80) BP Controlle d (<130/80) [facility] Start: 09-13-2024 Influenza vaccination Influenza Vacc ine (#1) [facility] Comment on above: Postponed from 11/15 (Declined at this time) Start: 08-28-2024 Hepatitis B surface antibody level LDL Cholesterol [facility] Start: 08-22-2024 [facility] Start: 08-04-2024 DIABETES SCREEN DIABETES SCREEN [facility] Start: 07-03-2024 Annual PCP Team [facility] Disease Visit Annual PCP Team Chronic Disease Visit [facility] Start: 05-27-2024 Hemoglobin A1c measurement HbA1C [facility] Start: 05-21-2024 End: 05-21-2024 Patient encounter procedure 05/21/2024 1:40 PM EST Office Visit [facility] [place] [address] [place] [address] Paulo Scott MD [address] [place] [address] 4 month follow up [facility] [place] Comment on above: 4 month follow up Start: 04-08-2024 Following clinical p athway protocol [facility] Start: 03-05-2024 End: 03-05-2024 Patient encounter procedure 03/05/2024 1:30 PM EST Appointment Mammogram [address] [place] [address] [facility] Scre[facility] prev here Mammogram Comment on above: [facility] Screening prev here Start: 02-22-2024 BP Controlled (<130/80) BP Controlle d (<130/80) [facility] Start: 02-20-2024 Hepatitis B surface antibody level LDL Cholesterol [facility] Start: 01-23-2024 End: 01-23-2024 Patient encounter procedure 01/23/2024 1:20 PM EST Office Visit [facility] [place] [address] [place] [address] Norman Garcia APRN.CHAINMAN [address] [place] [address] 4 month follow up [facility] [place] Comment on above: 4 month follow up Start: 12-18-2023 End: 03-18-2024 25-hydroxyvitamin D3 [Mass/volume] in Serum or Plasma VITAMIN D 25 HYDROXY Lab Routine Vitamin D deficiency Encounter for long-term current use of medication Expected: 12/18/2023 (Approximate), Expires: 03/18/2024 [facility] Comment on above: Expected: 12/18/2023 (Approximate), Expires: 03/18/2024 Start: 12-18-2023 End: 03-18-2024 Comprehensive metabolic 2000 panel - Serum or Plasma COMPREHENSIVE METABOLIC PANEL Lab Routine IFG (impaired fasting glucose) Encounter for long-term current use of medication Expected: 12/18/2023 (Approximate), Expires: 03/18/2024 [facility] Comment on above: Expected: 12/18/2023 (Approximate), Expires: 03/18/2024 Start: 12-18-2023 End: 03-18-2024 Hemoglobin A1c in Blood HEMOGLOBIN A1C Lab Routine IFG (impaired fasting glucose) Encounter for long-term current use of medication Expected: 12/18/2023 (Approximate), Expires: 03/18/2024 [facility] Work Phone: Comment on above: Expected: 12/18/2023 (Approximate), Expires: 03/18/2024 Start: 12-18-2023 End: 03-18-2024 Lipid 1996 panel - Serum or Plasma LIPID PANEL BASIC Lab Routine Encounter for long-term current use of medication Expected: 12/18/2023 (Approximate), Expires: 03/18/2024 [facility] Comment on above: Expected: 12/18/2023 (Approximate), Expires: 03/18/2024 Start: 12-18-2023 End: 03-18-2024 TOXICOLOGY SCREEN, ROUTINE URINE TOXICOLOGY SCREEN, ROUTINE URINE Lab Routine Encounter for long-term current use of medication Expected: 12/18/2023 (Approximate), Expires: 03/18/2024 [facility] Comment on above: Expected: 12/18/2023 (Approximate), Expires: 03/18/2024 Start: 11-16-2023 Covid-19 Vaccine () Covid-19 Vaccine () [facility] Start: 11-16-2023 Covid-19 Vaccine () Covid-19 Vaccine () [facility] Start: 11-16-2023 Influenza vaccination [facility] Start: 09-17-2023 End: 09-17-2023 Patient encounter procedure 09/17/2023 1:40 PM EDT Office Visit [facility] [place] [address] [place], [place] [id number] Paulo Scott MD [address] [place], [place] [address] 6 Month follow up [facility] [place] Comment on above: 6 Month follow up Start: 09-14-2023 Mammography [facility] Start: 09-14-2023 Screening for malign ant neoplasm of breast Mammogram Screening [facility] Start: 09-07-2023 SHINGRIX VACCINE (2 of 3) GALICIA GRIX VACCINE (2 of 3) [facility] Comment on above: Postponed from 05/01 (Declined at this time) Start: 08-29-2023 Hepatitis B surface antibody level LDL CHOLESTEROL [facility] Start: 08-11-2023 End: 02-13-2024 CBC W Auto Differential panel - Blood CBC + DIFF Lab Routine Essential hypertension Expected: 08/11/2023 (Approximate), Expires: 02/13/2024 [facility] Work Phone: Comment on above: Expected: 08/11/2023 (Approximate), Expires: 02/13/2024 Start: 08-11-2023 End: 02-13-2024 Comprehensive metabolic 2000 panel - Serum or Plasma COMP METABOLIC PANEL Lab Routine Mixed hyperlipidemia Essential hypertension Expected: 08/11/2023 (Approximate), Expires: 02/13/2024 [facility] Work Phone: Comment on above: Expected: 08/11/2023 (Approximate), Expires: 02/13/2024 Start: 08-11-2023 End: 02-13-2024 Hemoglobin A1c in Blood HGB A1C Lab Routine Elevated glucose Expected: 08/11/2023 (Approximate), Expires: 02/13/2024 [facility] Work Phone: Comment on above: Expected: 08/11/2023 (Approximate), Expires: 02/13/2024 Start: 08-11-2023 End: 02-13-2024 Lipid 1996 panel - Serum or Plasma LIPID PANEL BASIC Lab Routine Mixed hyperlipidemia Expected: 08/11/2023 (Approximate), Expires: 02/13/2024 [facility] Work Phone: Comment on above: Expected: 08/11/2023 (Approximate), Expires: 02/13/2024 Start: 08-11-2023 End: 02-13-2024 Thyrotropin [Units/volume] in Serum or Plasma TSH BLD Lab Routine Acquired hypothyroidism Expected: 08/11/2023 (Approximate), Expires: 02/13/2024 [facility] Work Phone: Comment on above: Expected: 08/11/2023 (Approximate), Expires: 02/13/2024 Start: 06-19-2023 [facility] Start: 05-18-2023 ANNUAL PCP TEAM INFORMATION TECHNOLOGY COORDINATOR GREGORIO DISEASE VISIT ANNUAL PCP TEAM CHRONIC DISEASE VISIT [facility] Start: 04-26-2023 BP CONTROLLED (<130/80) BP CONTROLLE D (<130/80) [facility] Start: 04-23-2023 Colsc flx w/rmvl of tumor polyp lesion snare tq COLONOSCOPY W/LESION REMOVAL [facility] Start: 04-23-2023 Egd transoral biopsy single/multiple EGD BIOPSY SINGLE/MULTIPLE [facility] Start: 04-23-2023 Patient discharge [facility] Start: 04-17-2023 COLORECTAL CANCER SCREENING COLORECTAL CANCER SCREENING [facility] Comment on above: Postponed from 02/26 (Declined at this time) Start: 03-17-2023 Advance Directive Discussion Advance Directive Discussion [facility] Start: 03-17-2023 Behavioral Health Screening Behavioral Health Screening [facility] Start: 03-17-2023 Depression Assessment Depression Ass essment [facility] Start: 03-01-2023 FECAL OCCULT BLOOD FECAL OCCULT BLOO D [facility] Start: 03-01-2023 Screening for malign ant neoplasm of colon Fecal Occult Blood [facility] Start: 02-22-2023 ANNUAL PCP TEAM INFORMATION TECHNOLOGY COORDINATOR GREGORIO DISEASE VISIT ANNUAL PCP TEAM CHRONIC DISEASE VISIT [facility] Start: 02-22-2023 COVID-19 VACCINE (3 - Booster for Pfizer series) COVID-19 VACCINE (3 - Booster for Pfizer series) [facility] Comment on above: Postponed from 10/20 (Declined at this time) Start: 02-22-2023 COVID-19 VACCINE (3 - Pfizer series) COVID-19 VACCINE (3 - Pfizer series) [facility] Comment on above: Postponed from 10/20 (Declined at this time) Start: 11-15-2022 Covid-19 Vaccine (2022- season) Covid-19 Vaccine ( season) [facility] Start: 11-15-2022 Influenza vaccination [facility] Start: 10-17-2022 Elastase, pancreatic (el-1), fecal; quantitative [facility] Start: 10-17-2022 Procedure [facility] Start: 10-17-2022 [facility] Start: 09-19-2022 End: 11-19-2022 Herpes simplex virus+Varicella zoster virus DNA [Presence] in Unspecified specimen by ELIN with probe detection [facility] Work Phone: Comment on above: Expected: 09/19/2022 , Expires: 11/19/2022 Start: 08-23-2022 Adult depression scr eening assessment DEPRESSION SCREENING [facility] Start: 08-23-2022 ANNUAL PCP TEAM INFORMATION TECHNOLOGY COORDINATOR GREGORIO DISEASE VISIT ANNUAL PCP TEAM CHRONIC DISEASE VISIT [facility] Start: 08-23-2022 BP CONTROLLED (<130/80) BP CONTROLLE D (<130/80) [facility] Start: 08-23-2022 SHINGRIX VACCINE (2 of 3) GALICIA GRIX VACCINE (2 of 3) [facility] Comment on above: Postponed from 05/01 (Declined at this time) Start: 08-23-2022 Urine microalbumin profile DTAP,TDAP ,TD (1 - Tdap) [facility] Comment on above: Postponed from 11/18 (Declined at this time) Start: 08-04-2022 Hepatitis B surface antibody level LDL CHOLESTEROL [facility] Start: 05-06-2022 Referral to service [facility] Start: 05-06-2022 Patient discharge [facility] Start: 05-05-2022 Following clinical p athway protocol [facility] Start: 05-05-2022 Assessment of risk o f venous thromboembolism [facility] Start: 05-05-2022 Insertion of cathete r into peripheral vein [facility] Start: 05-05-2022 Measuring intake and output [facility] Start: 05-05-2022 Providing care accor ding to standard [facility] Start: 05-05-2022 Provision of activit y privileges [facility] Start: 05-05-2022 Referral to occupati onal therapist [facility] Start: 05-05-2022 Referral to service [facility] Start: 05-05-2022 [facility] Start: 05-05-2022 Admission procedure [facility] Start: 05-05-2022 Inhalation therapy procedure [facility] Start: 05-05-2022 Patient referral to dietitian [facility] Start: 04-03-2022 Patient referral [facility] Work Phone: Start: 03-17-2022 ADVANCE DIRECTIVE DISCUSSION ADVANCE DIRECTIVE DISCUSSION [facility] Start: 03-17-2022 DEPRESSION ASSESSMENT DEPRESSION ASS ESSMENT [facility] Start: 03-16-2022 [facility] Comment on above: Postponed from 03/17 (Declined at this time) Start: 03-02-2022 COLORECTAL CANCER SCREENING COLORECTAL CANCER SCREENING [facility] Start: 02-22-2022 End: 04-24-2022 25-hydroxyvitamin D3 [Mass/volume] in Serum or Plasma VITAMIN D 25 HYDROXY Lab Routine Vitamin D deficiency Expected: 02/22/2022 (Approximate), Expires: 04/24/2022 [facility] Work Phone: Comment on above: Expected: 02/22/2022 (Approximate), Expires: 04/24/2022 Start: 02-22-2022 End: 04-24-2022 CBC panel - Blood by Automated count CBC Lab Routine Essential hypertension Expected: 02/22/2022 (Approximate), Expires: 04/24/2022 [facility] Work Phone: Comment on above: Expected: 02/22/2022 (Approximate), Expires: 04/24/2022 Start: 02-22-2022 End: 04-24-2022 Comprehensive metabolic 2000 panel - Serum or Plasma COMP METABOLIC PANEL Lab Routine IFG (impaired fasting glucose) Essential hypertension Expected: 02/22/2022 (Approximate), Expires: 04/24/2022 [facility] Work Phone: Comment on above: Expected: 02/22/2022 (Approximate), Expires: 04/24/2022 Start: 02-22-2022 End: 04-24-2022 Hemoglobin A1c in Blood HGB A1C Lab Routine IFG (impaired fasting glucose) Expected: 02/22/2022 (Approximate), Expires: 04/24/2022 [facility] Work Phone: Comment on above: Expected: 02/22/2022 (Approximate), Expires: 04/24/2022 Start: 02-22-2022 End: 04-24-2022 Thyrotropin [Units/volume] in Serum or Plasma TSH BLD Lab Routine Acquired hypothyroidism Expected: 02/22/2022 (Approximate), Expires: 04/24/2022 [facility] Work Phone: Comment on above: Expected: 02/22/2022 (Approximate), Expires: 04/24/2022 Start: 02-22-2022 End: 04-24-2022 Thyroxine (T4) free [Mass/volume] in Serum or Plasma T4 FREE/FREE THYROX Lab Routine Acquired hypothyroidism Expected: 02/22/2022 (Approximate), Expires: 04/24/2022 [facility] Work Phone: Comment on above: Expected: 02/22/2022 (Approximate), Expires: 04/24/2022 Start: 02-22-2022 End: 04-24-2022 Triiodothyronine (T3) Free [Mass/volume] in Serum or Plasma T3 FREE BLD Lab Routine Acquired hypothyroidism Expected: 02/22/2022 (Approximate), Expires: 04/24/2022 [facility] Work Phone: Comment on above: Expected: 02/22/2022 (Approximate), Expires: 04/24/2022 Start: 01-15-2022 Colonoscopy COLONOSCOPY [facility] Start: 01-15-2022 COLORECTAL CANCER SCREENING COLORECTAL CANCER SCREENING [facility] Start: 11-15-2021 Influenza vaccination INFLUENZA (#1) [facility] Start: 07-21-2021 Mammography MAMMOGRAM [facility] Start: 03-17-2021 DEPRESSION ASSESSMENT DEPRESSION ASS ESSMENT [facility] Start: 01-25-2021 COVID-19 VACCINE (3 - Booster for Pfizer series) COVID-19 VACCINE (3 - Booster for Pfizer series) [facility] Start: 10-20-2020 COVID-19 VACCINE (3 - Booster for Pfizer series) COVID-19 VACCINE (3 - Booster for Pfizer series) [facility] Start: 11-19-2019 Urine microalbumin profile [facility] Start: 11-24-2018 Hepatitis B screening Urine Albumin:Creatinine Ratio [facility] Start: 02-14-2015 Medicare Annual Well ness Visit Medicare Annual Wellness Visit [facility] Start: 10-08-2013 FECAL OCCULT BLOOD FECAL OCCULT BLOO D [facility] Start: 05-01-2012 Shingrix Vaccine (2 of 3) Galicia grix Vaccine (2 of 3) [facility] Start: 2010 RSV Vaccine (1 - 1-d ose 60+ series) RSV Vaccine (1 - 1-dose 60+ series) [facility] Start: 1995 COLOGUARD (FIT-DNA) COLOGUARD (FIT-D NA) [facility] Start: [address] COLONOGRAPHY [facility] Start: 1995 Screening for malign ant neoplasm of colon [facility] Start: 1995 SIGMOIDOSCOPY SIGMOIDOSCOPY [facility] Start: 1971 Microscopic observat ion [Identifier] in Cervix by Cyto stain Pap Smear [facility] Start: 1969 Hepatitis B (1 of 3 - Risk 3-dose series) Hepatitis B (1 of 3 - Risk 3-dose series) [facility] Start: 02-27-1968 BP CONTROLLED (<130/80) BP CONTROLLE D (<130/80) [facility] Start: 02-27-1968 Depression Screening Depression Scre ening [facility] Start: 1966 COVID-19 (1) COVID-19 (1) [facility] Start: 1966 MenB (1 of 2 - MenB 2-Dose Series) MenB (1 of 2 - MenB 2-Dose Series) [facility] Start: 02-27-1960 Diabetic foot examination Diabetic F oot Exam [facility] Start: 02-27-1960 Glaucoma screening Dilated Retinal E xam [facility] Start: 1957 Tetanus Diphtheria a nd Pertussis Vaccines (1 - Tdap) Tetanus Diphtheria and Pertussis Vaccines (1 - Tdap) [facility] Start: 1951 Hepatitis A (1 of 2 - Risk 2-dose series) Hepatitis A (1 of 2 - Risk 2-dose series) [facility] Start: 1951 MMR (1 of 1 - Standa rd series) MMR (1 of 1 - Standard series) [facility] Start: 1951 Varicella (1 of 2 - 2-dose childhood series) Varicella (1 of 2 - 2-dose childhood series) [facility] COVID & INFLUENZA A/ B & RSV PCR, ROUTINE COVID & INFLUENZA A/B & RSV PCR, ROUTINE Microbiology Routine Acute cough Ordered: 01/23/2024 [facility] Work Phone: Comment on above: Ordered: 01/23/2024 End: 11-13-2024 DBT Breast - bilateral screening FORTUNATO SCREENING [facility] Radiology Routine Encounter for screening mammogram for breast cancer 1 Occurrences starting 10/15/2023 until 11/13/2024 [facility] Work Phone: Comment on above: 1 Occurrences starti ng 10/15/2023 until 11/13/2024 DBT Breast - bilater al screening FORTUNATO SCREENING [facility] Radiology Routine Encounter for screening mammogram for breast cancer 03/05/2024 1:29 PM EST [facility] Work Phone: Genetic Sendout: Genetic Sendout : Lab Routine 07/22/2020 12:00 PM EDT [facility] End: 07-22-2020 Genetic Sendout: Common Hereditary Cancers Panel [facility] Comment on above: 1 Occurrences starti [...] Encounter for immunization 1 Occurrences starting 02/21/2023 [facility] Work Phone: Comment on above: 1 Occurrences starti ng 02/21/2023 Ova and parasites identified in Unspecified specimen by Light microscopy [facility] Patient Education [facility] Work Phone: Patient referral [facility] Work Phone: PFIZER-BIONTECH COVI D-19 VACCINE ( SEASON) AGE 12+ YR PFIZER-BIONTECH COVID-19 VACCINE ( SEASON) AGE 12+ YR Immunization/Injection Routine Encounter for immunization 1 Occurrences starting 02/21/2023 [facility] Work Phone: Comment on above: 1 Occurrences starti ng 02/21/2023 End: 09-21-2022 Screening mammography bi 2-view breast inc cad FORTUNATO SCREENING Radiology Routine Encounter for screening mammogram for breast cancer 1 Occurrences starting 08/22/2021 until 09/21/2022 [facility] Work Phone: Comment on above: 1 Occurrences starti ng 08/22/2021 until 09/21/2022 [facility] Immunizations Immunization Date Immunization Notes Care Provider Fa cili 01-15-2022 influenza, injectabl e, quadrivalent, preservative free Dr. Paulo Scott Work Phone: [facility] 01-15-2022 influenza, seasonal, injectable Dr. Paulo Scott Work Phone: [facility] 01-15-2022 influenza virus vaccine, unspecified formulation Screen Wstr [facility] 12-07-2021 Influenza, high dose seasonal Dr. Paulo Scott MD Work Phone: [facility] 12-07-2021 influenza, high dose seasonal, preservative-free Dr. Paulo Scott Work Phone: [facility] 12-07-2021 influenza, high-dose , quadrivalent vaccine (FLUZONE HIGH DOSE QUADRIVALENT) Mi Nurse Work Phone: [facility] Work Phone: 01-19-2021 influenza, high-dose , quadrivalent vaccine (FLUZONE HIGH DOSE QUADRIVALENT) Paulo Scott MD Work Phone: [facility] 08-25-2020 Covid (Pfizer) Dr. Paulo bach Work Phone: [facility] 08-04-2020 COVID-19 vaccine, ag e 12+ yr (PFIZER-BIONTGrupHediye - PURPLE TOP) Paulo Scott MD Work Phone: [facility] Work Phone: 12-16-2019 influenza, injectabl e, quadrivalent, preservative free Dr. Paulo Scott Work Phone: [facility] 12-16-2019 influenza, seasonal, injectable Dr. Paulo Scott Work Phone: [facility] 12-16-2019 influenza, seasonal, injectable, preservative free Paulo Scott MD Work Phone: [facility] Work Phone: 12-14-2019 influenza, high-dose , quadrivalent vaccine (FLUZONE HIGH DOSE QUADRIVALENT) Paulo Scott MD Work Phone: [facility] 11-18-2019 tetanus and diphther ia toxoids, adsorbed, preservative free, for adult use (2 Lf of tetanus toxoid and 2 Lf of diphtheria toxoid) Paulo Scott MD Work Phone: [facility] 12-22-2018 influenza, high dose seasonal, preservative-free Paulo Scott MD Work Phone: [facility] 12-21-[address] Paulo Scott Work Phone: [facility] 12-05-2017 influenza, high dose seasonal, preservative-free Paulo Scott MD Work Phone: [facility] Work Phone: 11-29-2016 influenza, high dose seasonal, preservative-free Paulo Scott MD Work Phone: [facility] 11-29-2016 pneumococcal polysaccharide vaccine, 23 valent Paulo Scott MD Work Phone: [facility] 12-08-2015 influenza, high dose seasonal, preservative-free Paulo Scott MD Work Phone: [facility] 09-22-2015 pneumococcal conjuga te vaccine, 13 valent Paulo Scott MD Work Phone: [facility] 12-15-2014 influenza, injectabl e, quadrivalent, contains preservative Paulo Scott MD Work Phone: [facility] Work Phone: 12-23-2013 influenza, seasonal, injectable Paulo Scott MD Work Phone: [facility] Work Phone: 02-09-2013 influenza virus vaccine, unspecified formulation Paulo Scott MD Work Phone: [facility] 03-06-2012 zoster vaccine, live Paulo cuello MD Work Phone: [facility] Work Phone: 01-29-2012 influenza virus vaccine, unspecified formulation Paulo Scott MD Work Phone: [facility] Work Phone: 2011 influenza virus vaccine, unspecified formulation Paulo Scott MD Work Phone: [facility] Work Phone: 01-06-2009 influenza virus vaccine, whole virus Norman Radha ELECTRONIC CALIBRATION TECHNICIAN.CHAINMAN Work Phone: [facility] 06-03-2008 hepatitis B vaccine, pediatric or pediatric/adolescent dosage Dr. Paulo Scott Work Phone: [facility] 02-09-2008 influenza virus vaccine, whole virus Norman Radha ELECTRONIC CALIBRATION TECHNICIAN.CHAINMAN Work Phone: [facility] 01-15-2008 hepatitis B vaccine, pediatric or pediatric/adolescent dosage Dr. Paulo Scott Work Phone: [facility] 12-04-2007 hepatitis B vaccine, pediatric or pediatric/adolescent dosage Dr. Paulo Scott Work Phone: [facility] NEGATED: Highlighted row has not occurred!09-06-2022 tetanus toxoid, reduced diphtheria toxoid, and acellular pertussis vaccine, adsorbed Paulo Scott MD Work Phone: [facility] Work Phone: Comment on above: Deferred: Postponed Payers Date Payer Category Payer Self-pay [id number] 2020 Medicare ANTHEM MEDICARE ANTHEM MEDICARE SELECT [id number] 2020-Present [address] [address] [place] [address] [id number] 2016 [facility] ANTHEM ME DICARE SUPPLEMENT [id number] 2016 Unknown ANTHEM ANTHEM ME DICARE SUPPLEMENT [id number] 2016-Present [phone] [id number] [place] [address] Indemnity [id number] 2016 Unknown ANTHEM ANTHEM ME DICARE SUPPLEMENT [id number] 2016-Present [phone] [id number] [place] [address] Indemnity [id number] 2016 Unknown [id number] 2015 Medicare [id number] 2015 Medicare [id number] 2015 Medicare [id number] Unknown [id number] Unknown [id number] Unknown [id number] .462 Unknown [id number] .462 Unknown [id number] .462 Unknown [id number] .462 Unknown [id number] .462 Unknown [id number] .462 Unknown [id number] .462 Unknown [id number] .462 Unknown [id number] .462 Unknown [id number] .462 Unknown [id number] .462 Unknown [id number] .462 Unknown [id number] .462 Unknown [id number]..[id number] .462 Unknown [id number] .462 Unknown [id number] .462 Unknown [id number] .462 Unknown [id number] .462 Social History Date Type Detail Facility Start: 04-14-2020 End: 04-26-2022 Tobacco smoking status NHIS Never smoker [facility] Start: 04-14-2020 End: 04-26-2022 Tobacco use and exposure Never used [facility] Start: 1950 Sex Assigned At Not on file A [facility] Start: 06-11-2020 End: 12-01-2021 Exposure to SARS-CoV-2 (event) Not sure [facility] Start: 12-21-2020 End: 09-24-2024 Alcohol intake Current drinker of alcohol (finding) [facility] Start: 12-21-2020 End: 08-23-2022 Alcohol intake [facility] Work Phone: Start: 12-28-2010 History SDOH Alcohol Comment occasionally rare [facility] Start: 09-18-2021 End: 06-19-2023 Tobacco smoking status MEIS Unknown if ever smoked [facility] Start: 08-06-2020 Occasional [facility] Start: 1950 Sex Assigned At Female W [facility] Start: 08-23-2022 End: 09-19-2022 Tobacco use panel [facility] Work Phone: Start: 02-16-2012 Adult Depression Screening Assessment 2 [facility] Work Phone: Start: 06-03-2024 Sex Female (finding) [facility] NEGATED: Highlighted row [facility] Medical Equipment Procedure Code Equipment Code Equipment Original Text Equipment Identifier Dates Total cholecystectomy with exploration of common bile duct CLIP,HEMOLOCK [employer] WECK FDA Start: 02-10-2019 Total cholecystectomy with exploration of common bile duct CLIP,HEMOLOCK [employer] WEMARYBEL FDA Start: 02-10-2019 Total cholecystectomy with exploration of common bile duct CLIP,HEMOLOCK [employer] WEMARYBEL FDA Start: 02-10-2019 Total cholecystectomy with exploration of common bile duct CLIP,HEMOLOCK [employer] WEMARYBEL FDA Start: 02-10-2019 Total cholecystectomy with exploration of common bile duct CLIP,HEMOLOCK MED WEMARYBEL FDA Start: 02-10-2019 Total cholecystectomy with exploration of common bile duct CLIP,SUDEEP SUNCK FDA Start: 02-10-2019 Total cholecystectomy with exploration of common bile duct CLIP,SUDEEP PEREZ WEMARYBEL FDA Start: 02-10-2019 Total cholecystectomy with exploration of common bile duct CLIP,SUDEEP SUNMARYBEL FDA Start: 02-10-2019 Total cholecystectomy with exploration of common bile duct CLIP,SUDEEP SUNMARYBEL FDA Start: 02-10-2019 Total cholecystectomy with exploration of common bile duct CLIP,SUDEEP SUNMARYBEL FDA Start: 02-10-2019 Total cholecystectomy with exploration of common bile duct CLIP,SUDEEP PEREZ MERCEDES FDA Start: 02-10-2019 Total cholecystectomy with exploration of common bile duct CLIP,SUDEEP PEREZ MERCEDES FDA Start: 02-10-2019 Total cholecystectomy with exploration of common bile duct CLIP,SUDEEP PEREZ MERCEDES FDA Start: 02-10-2019 Total cholecystectomy with exploration of common bile duct CLIP,LUISMARYBEL CHRIS MERCEDES FDA Start: 02-10-2019 Total cholecystectomy with exploration of common bile duct CLIP,SUDEEP SUNMARYBEL FDA Start: 02-10-2019 Total cholecystectomy with exploration of common bile duct CLIP,SUDEEP PEREZ MERCEDES FDA Start: 02-10-2019 Total cholecystectomy with exploration of common bile duct CLIP,SUDEEP PEREZ MERCEDES FDA Start: 02-10-2019 Total cholecystectomy with exploration of common bile duct CLIP,SUDEEP PEREZ MERCEDES FDA Start: 02-10-2019 Total cholecystectomy with exploration of common bile duct CLIP,LUISMARYBEL CHRIS MERCEDES FDA Start: 02-10-2019 Total cholecystectomy with exploration of common bile duct CLIP,SUDEEP PEREZ MERCEDES FDA Start: 02-10-2019 Total cholecystectomy with exploration of common bile duct CLIP,SUDEEP PEREZ MERCEDES FDA Start: 02-10-2019 Total cholecystectomy with exploration of common bile duct CLIP,LUISMARYBEL CHRIS MERCEDES FDA Start: 02-10-2019 Total cholecystectomy with exploration of common bile duct CLIP,LUISMARYBEL CHRIS MERCEDES FDA Start: 02-10-2019 Total cholecystectomy with exploration of common bile duct CLIP,SUDEEP PEREZ MERCEDES FDA Start: 02-10-2019 Total cholecystectomy with exploration of common bile duct CLIP,LUISMARYBEL CHRIS MERCEDES FDA Start: 02-10-2019 Total cholecystectomy with exploration of common bile duct CLIP,SUDEEP LONG FDA Start: 02-10-2019 Total cholecystectomy with exploration of common bile duct CLIP,SUDEEP PEREZ WECK FDA Start: 02-10-2019 Total cholecystectomy with exploration of common bile duct CLIP,SUDEEP PEREZ WECK FDA Start: 02-10-2019 Total cholecystectomy with exploration of common bile duct CLIP,SUDEEP SUNCK FDA Start: 02-10-2019 Total cholecystectomy with exploration of common bile duct CLIP,SUDEEP SUNCK FDA Start: 02-10-2019 Total cholecystectomy with exploration of common bile duct CLIP,SUDEEP SUNCK FDA Start: 02-10-2019 Total cholecystectomy with exploration of common bile duct CLIP,SUDEEP PEREZ WECK FDA Start: 02-10-2019 Total cholecystectomy [...] with exploration of common bile duct CLIP,SUDEEP SUNCK FDA Start: 02-10-2019 Total cholecystectomy with exploration of common bile duct CLIP,SUDEEP PEREZ WECK FDA Start: 02-10-2019 Goals Date Patient Goal Desired Activity /State Functional Status Date Assessment Result Facility 05-06-2022 Functional status Ambulates [facility] Work Phone: 08-19-2014 Are you deaf, or do you have serious difficulty hearing No 08/19/2014 10:45 AM Rosina Poe LPN No [facility] 08-19-2014 Are you blind, or do you have serious difficulty seeing, even when wearing glasses No 08/19/2014 10:45 AM Rosina Poe LPN No [facility] 08-19-2014 Do you have serious difficulty walking or climbing stairs No 08/19/2014 10:45 AM Rosina Poe LPN No [facility] 08-19-2014 Do you have difficul ty dressing or bathing No 08/19/2014 10:45 AM Rosina Poe LPN No [facility] 08-19-2014 Because of a physica l, mental, or emotional condition, do you have difficulty doing errands alone such as visiting a physician's office or shopping No 08/19/2014 10:45 AM Rosina Poe LPN No [facility] Mental Status Date Assessment Result Facility 08-22-2024 Cognitive function Level Of Cons ciousness Awake;Alert;Appropriate [facility] Work Phone: 04-08-2024 Cognitive function Awake;Alert;Appropriat e [facility] Work Phone: 04-23-2023 Cognitive function Voice/Name [place] [facility] Work Phone: 05-06-2022 Cognitive function Appropriate [facility] Work Phone: 05-05-2022 Cognitive function Level Of Cons ciousness Awake;Alert;Appropriate;Fol lows Commands [facility] Work Phone: 04-24-2022 Cognitive function Level Of Cons ciousness Awake;Alert;Appropriate;Fol lows Commands [facility] Work Phone: 08-19-2014 Because of a physica l, mental, or emotional condition, do you have serious difficulty concentrating, remembering, or making decisions No 08/19/2014 10:45 AM Rosina Poe LPN No [facility] Clinical Notes 06-26-2011 to 11-30-2024 Telephone Encounter - Paulo Scott MD - 11/30/2024 1:33 PM EDTTelephone Encounter - Paulo Scott MD - 11/30/2024 1:33 PM EDT Note Date & Type Note Facility 11-30-2024 Telephone encount er Note The following approved medication requests have been transmitted electronically. Requested Prescriptions Signed Prescriptions Disp Refills gabapentin (NEURONTIN) 100 mg capsule 270 capsule 1 Sig: Take 3 capsules by mouth daily at bedtime for 180 days. Authorizing Provider: PUALO SCOTT gabapentin (NEURONTIN) 100 mg capsule 42 capsule 0 Sig: Take 3 capsules by mouth daily at bedtime for 14 days. Authorizing Provider: PAULO SCOTT MD [facility] 11-30-2024 Miscellaneous Notes Formattin g of this note is different from the original. The following approved medication requests have been transmitted electronically. Requested Prescriptions Signed Prescriptions Disp Refills gabapentin (NEURONTIN) 100 mg capsule 270 capsule 1 Sig: Take 3 capsules by mouth daily at bedtime for 180 days. Authorizing Provider: PAULO SCOTT gabapentin (NEURONTIN) 100 mg capsule 42 capsule 0 Sig: Take 3 capsules by mouth daily at bedtime for 14 days. Authorizing Provider: PAULO SCOTT MD Patient calls to check on refill request for Gabapentin. Patient reports she only has 3 days left and prescription will take atleast a week to get to her from [facility]. Patient requests a small supply to be sent to [facility] to get her through until mail away arrives. Pended both. Last OV: 09/24/2024 Next OV: 03/04/2025 Please review and advise, Shae Palencia RN documented in this encounter [facility] 11-29-2024 Telephone encount er Note Patient calls to check on refill request for Gabapentin. Patient reports she only has 3 days left and prescription will take atleast a week to get to her from [facility]. Patient requests a small supply to be sent to [facility] to get her through until mail away arrives. Pended both. Last OV: 09/24/2024 Next OV: 03/04/2025 Please review and advise, Shae Palencia RN [facility] 11-01-2024 Telephone encount er Note Patient has been identified by name and date of : yes Patient phones for refill(s): Requested Prescriptions Pending Prescriptions Disp Refills amLODIPine (NORVASC) 5 mg tablet 90 tablet 3 Sig: Take 1 tablet by mouth once daily. Date of last office visit in primary care: 09/24/2024 Date of next office visit in primary care: 03/04/2025 Please advise. Thank you. Jeanna Hoover MA. [facility] 11-01-2024 Miscellaneous Notes Formattin g of this note is different from the original. Patient has been identified by name and date of : yes Patient phones for refill(s): Requested Prescriptions Pending Prescriptions Disp Refills amLODIPine (NORVASC) 5 mg tablet 90 tablet 3 Sig: Take 1 tablet by mouth once daily. Date of last office visit in primary care: 09/24/2024 Date of next office visit in primary care: 03/04/2025 Please advise. Thank you. Jeanna Hoover MA. documented in this encounter [facility] 10-15-2024 [place] [facility] [place] Progress note Note Date/Time October 15, 2024 10:56am [facility] [address] [place] [address] OFFICE VISIT Date of Service: 10/15/24 MR#: [id number] Acct: [id number] Name: KESHIA ROJAS Rep #: [id number] : 1950 Provider: LEONEL Lr Age/Sex: 74/F Location: [facility] [place] Status: Signed HPI HPI History of Present Illness Details: Keshia Rojas is a 74-year-old who presents here today for a cardiovascular follow-up.? She has a history of nonobstructive coronary artery disease, hypertension, peripheral vascular disease, history of DVT.?In March 2019 was anegative stress pharmacologic test. Echocardiogram March 2019 showed an EF of65% with trivial valve disease and no evidence of diastolic dysfunction right ventricular systolic pressure was estimated at 11. The patient has a multitude of allergies and intolerances to medications. Pt is having issues with her back. She is having issues with her balance and has numbness in her feet. She is still working at [employer]. She works 4-5 days a week. She does not have any chest pain. She does have SOB with exertion and rest. She does have fatigue. She does have swelling in her feet. She recently had labs done at [facility]. She only uses her spirolactone on as needed basis. 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 Is patient in pain?: No Allergies latex Allergy (Unknown, Verified 10/15/24 10:09) PT UNSURE OF REACTION adhesive Allergy (Verified 10/15/24 10:09) Unknown benzocaine (From Cetacaine) Allergy (Verified 10/15/24 10:09) Unknown butamben (From Cetacaine) Allergy (Verified 10/15/24 10:09) Vomiting cortisone (Cortisone) Allergy (Verified 10/15/24 10:09) Unknown dipyridamole (From Aggrenox) Allergy (Verified 10/15/24 10:09) Unknown lansoprazole (From Prevacid) Allergy (Verified 10/15/24 10:09) Unknown meclizine Allergy (Verified 10/15/24 10:09) Unknown methylprednisolone acetate (From Depo-Medrol) Allergy (Verified 10/15/24 10:09) Angioedema metoprolol Allergy (Verified 10/15/24 10:09) Unknown omeprazole (From Prilosec) Allergy (Verified 10/15/24 10:09) Unknown omeprazole magnesium (From Prilosec) Allergy (Verified 10/15/24 10:09) Unknown oxybutynin chloride (From Ditropan) Allergy (Verified 10/15/24 10:09) Unknown povidone-iodine (From Betadine) Allergy (Verified 10/15/24 10:09) Unknown sulfamethoxazole (From Bactrim) Allergy (Verified 10/15/24 10:09) Unknown tegaserod (From Zelnorm) Allergy (Verified 10/15/24 10:09) Hives tegaserod hydrogen maleate (From Zelnorm) Allergy (Verified 10/15/24 10:09) Unknown tetracaine (From Cetacaine) Allergy (Verified 10/15/24 10:09) Unknown tolterodine tartrate (From Detrol) Allergy (Verified 10/15/24 10:09) Unknown trimethoprim (From Bactrim) Allergy (Verified 10/15/24 10:09) Unknown lisinopril Adverse Reaction (Intermediate, Verified 10/15/24 10:09) Angioedema adhesive tape Adverse Reaction (Verified 10/15/24 10:09) Rash codeine Adverse Reaction (Verified 10/15/24 10:09) Unknown mirabegron (From Myrbetriq) Adverse Reaction (Verified 10/15/24 10:09) Other tizanidine Adverse Reaction (Verified 10/15/24 10:09) Other vaccine adjuvant system, AS01B liposomal (From Shingrix (PF)) Adverse Reaction (Verified 10/15/24 10:09) Rash varicella-zoster virus glycoprotein E, recombinant (From Shingrix (PF)) Adverse Reaction (Verified 10/15/24 10:09) Rash Medications ?Medication ?Instructions ?Recorded ?Confirmed ?Type gabapentin 100 mg capsule 300 mg PO QHS 01/11/1410/15 History diazepam 5 mg tablet 5 mg PO QHS PRN anxiety 10/10/15/24 History aspirin 81 mg tablet,delayed 81 mg PO DAILY@0800 02/0910/15/24 History release multivitamin 1 tab PO DAILY 04/08/1904/10 History cholecalciferol (vitamin D3) 125 125 mcg PO DAILY 09/1510/15/24 History mcg (5,000 unit) capsule inhalational spacing device #1 ea 10/11/19 06/18/24 Rx (BreatheRite MDI Spacer) acetaminophen 500 mg capsule 500 mg PO Q6H PRN Pain 10/15/24 History levothyroxine 88 mcg tablet 88 mcg PO DAILY 07/26/22 0 10/15/24 History ipratropium 0.5 mg-albuterol 3 mg 3 ml inhalation Q4H PRN PRN SOB 10/02/22 10/15/24 Rx (2.5 mg base)/3 mL nebulization &/OR WHEEZING #180 mL soln cranberry fruit concentrate 250 mg 250 mg PO DAILY 10/15/24 History chewable tablet (Azo Cranberry) spironolactone 25 mg tablet 25 mg PO 1700 PRN 08/15/23 10/15/24 History budesonide 0.5 mg/2 mL suspension 0.5 mg (2 mL) inhala tion Q12H #120 10/15/23 10/15/24 Rx for nebulization mL benzonatate 100 mg capsule 100 - 200 mg PO TID PRN cou gh 03/12/24 10/15/24 History amlodipine 5 mg tablet 5 mg PO DAILY 10/15/2410/15 History Ejection fraction %: 65 Have you fallen in the past year?: No PFSH Medical History (Updated 10/15/24 @ 10:51 by Gina CASTANEDA, PA) Loss of hearing Wears glasses Wears partial dentures Post-menopausal Anxiety Thyroid disease Ambulates with cane Urinary incontinence Difficulty swallowing Gastric reflux Non-smoker History of echocardiogram History of stress test Seasonal allergies History of edema Cardiology follow-up encounter History of cataract Ganglion cyst Atherosclerotic heart disease of [place] coronary artery without angina pectoris Cholelithiasis with [...] local excision of skin lesion History of esophagogastroduodenoscopy (EGD) Hx of colonoscopy H/O hernia repair [...] walking frequency: 3-4 times per week ROS Const Const: Positive for fatigue; Negative for weakness, headache(s) or frequent falls Eyes Eyes: Negative for blurry vision ENT ENT: Positive for dizziness and balance problems; Negative for headache(s) or Nosebleed/epistaxis Cardio Chest Pain: No Palpitations: No Edema: Bilateral Muscle aches with walking: None Resp Respiratory: Positive for SOB with activity and SOB at rest; Negative for SOB orthopnea\SOB lying down GI GI: Positive for nausea, vomiting and heartburn; Negative bright, red blood in stools or black,tarry stools : Negative for hematuria Musc Musc: Positive for muscle aches/ myalgia, muscle weakness and balance problems Neuro Neuro: Positive for dizziness and lightheadedness; Negative for near syncope, syncope, frequent falls, headache(s), weakness or blurry vision Endo Endo: Positive for fatigue Cardiology Exam Const Appearance: cooperative and comfortable Nutritional Appearance: obese and overweight Head Head: normal to inspection Eyes General: appearance normal, both eyes and all related structures Neck Neck: no JVD Carotids: Negative bruit Chest Chest inspection: normal inspection of the chest Auscultation: Bilateral: Clear to Auscultation Cardio Rate: regular rate Rhythm: regular rhythm Heart sounds: S1 normal and S2 normal; Negative rub, gallop or murmur GI GI: obese Neuro General: patient alert and patient oriented x3 Extremities Lower Extremity Edema: None: Bilateral Psych Psychological: normal affect Supplemental Info Supplemental Information Echocardiogram 04/13/2019 Left ventricular systolic function is normal. The estimated ejection fraction is 65 %. Trivial mitral valve insufficiency. Trivial tricuspid valve insufficiency. Trivial aortic valve insufficiency. Right ventricular systolic pressure estimated to be 11 mmHg. No evidence for diastolic dysfunction. Stress Test 04/13/2019 Impression: 1.? Pharmacologic (Regadenoson) evaluation 2.? Peak pharmacologic ECG with no obvious ECG changes. 3.? There were no cardiac dysrhythmias pretest, during pharmacologic infusion, or recovery. 4.? Nuclear images pending Impression: 1.? Rest and stress SPECT Cardiolite nuclear imaging demonstrate myocardial perfusion changes appearing compatible with shifting soft tissue attenuation/artifact being more prominent at rest as opposed to stress with no myocardial perfusion changes considered diagnostic for associated stress-inducedmyocardial ischemia. 2.? The gated Cardiolite study reports an LVEF of 82 %. Carotid Duplex Ultrasound 09/11/2017 Impression Right Side Internal carotid artery: 0-19% stenosis. Vertebral artery: Patent and antegrade flow noted. Left Side Internal carotid artery: 0-19% stenosis. Vertebral artery: Patent and antegrade flow noted. Labs: No Data to Display Diagnostics: Electrocardiogram Echocardiogram Stress Test Stress Test Nuclear Medicine Chest X-Ray Abdomen/Pelvis CT Pulmonary: Pulmonary Function Test Pulmonary Exercise Test Past Visits: Cardiology Visit 10/15/24 Assessment and Plan Assessment and Plan (1) Atherosclerotic heart disease of [place] coronary artery without angina pectoris: Status: Chronic Qualifiers: [place] vs. transplanted heart: [place] heart Qualified Code(s): I25.10 -Atherosclerotic heart disease of [place] coronary artery without angina pectoris Comment: Mild per cath 08/06/06 patient denies any anginal symptoms her last stress test March 2019 was negative. Plan: Continue with risk factor modification. (2) Essential hypertension: Status: Chronic Comment: Blood pressure is adequately controlled on her current medical therapy she is intolerant to a multitude of meds. She believes that is possible her left breast swelling is related to spironolactone Plan Details Additional Comments: Thank you for allowing me to participate in the care of your patient. Please don't hesitate to call if any issues arise. This note was generated using a voice recognition system and there may be incorrect words, spelling, or punctuation that were not noted when reviewing theoffice note prior to saving. Portions of this documentation were copied and pasted from previous office visitnotes to provide a cohesive continuity of the history. The note has been reviewed, edited, and updated, as necessary. Goals & Barriers: Goals Improve ROM Decrease pain Decrease inflammation Barriers Previous lumbar surgery with hardware. Follow Up: 1 Year (Han) Coding Level of Care Code Off vis,est,level 3 Diagnoses Atherosclerosis of [place] coronary artery of [place] heart without angina pectoris I25.10 [place] vs. transplanted heart: [place] heart Essential hypertension I10 Coding Level of Care Code Off vis,est,level 3 Diagnoses Atherosclerosis of [place] coronary artery of [place] heart without angina pectoris I25.10 [place] vs. transplanted heart: [place] heart Essential hypertension I10 Clinical Quality Measures Falls Risk Screening/Assistive Devices Have you fallen in the past year?: No Cardiac Ejection fraction %: 65 10/15/24 1056 <Electronically signed by Gina Reynoso> Date _ Gina CASTANEDA Cosigner Signature: Date (if applicable) CC: ~ [place] [facility] Work Phone: [phone] 122-110607-16-2025 NotePatient Outreach (INTMMN) KESHIA ROJAS ([id number]) 1950 F Date Time Provider Department 09/29/24 PAULO SCOTT During your visit today, we recorded the following information about you: Allergies As of Date: 09/29/2024 Noted Allergy Reaction ADHESIVE 02/12/2023 2 - Rash Comments: ECG patch made skin red and raw; needs hypoallergenic patches for ECG and other testing needing patches AGGRENOX (ASPIRIN-DIPYRIDAMOLE) 05/27/2011 14 - Other: See Comments Comments: Headache BACTRIM (SULFAMETHOXAZOLE-TRIMETH*03/20/2006 Comments: dizzy, redness, face flushed BETADINE (POVIDONE-IODINE) 11/04/2006 2 - Rash CETACAINE ([id number]-[id number]-MF*09/11/2012 14 - Other: See Comments Comments: excessive [...] mandibular pain, lymphadenopathy, possible angio edema per [facility] ER note 04/24/2022 MECLIZINE 03/07/2006 7 - [...] HYDROGEN RACHELL*03/07/2006 4 - Hives Date Reviewed: 09/24/2024 Reviewed by: Norman Garcia APRN.CHAINMAN - Fully Assessed Visit Diagnosis:Diet-controlled diabetes mellitus (HCC) [E11.9] Order(s):ALBUMIN/CREATININE RATIO, URINE [SQUACR] Order #: [id number] FUTURE Prescriptions as of 10/04/2024 - levothyroxine (SYNTHROID) 88 mcg tablet Take 1 tablet by mouth once daily. Take on empty stomach. For Thyroid - diazePAM (VALIUM) 5 mg tablet Take 1 tablet by mouth at bedtime as needed (vertigo or anxiety) for up to 180 days. Patient should start on September 21, 2024. - lidocaine (LIDODERM) 5 % Apply 1 patch as directed once daily. Remove old patch after wearing for 12 hours and then 12 hours later apply new patch for 12 hours on the site and 12 hours off the site. Location: right lower back. - gabapentin (NEURONTIN) 100 mg capsule Take 3 capsules by mouth daily at bedtime for 180 days. - benzonatate (TESSALON PERLE) 100 mg capsule Take 1-2 capsules by mouth three times a day as needed for cough. - amLODIPine (NORVASC) 5 mg tablet Take 1 tablet by mouth once daily. - diclofenac (VOLTAREN) 1 % topical gel Apply 2 g to affected area four times daily. - cyclobenzaprine (FLEXERIL) 5 mg tablet Take 1 tablet by mouth three times a day as needed for muscle spasm. - ipratropium-albuterol (DUONEB) 0.5 mg-3 mg(2.5 mg base)/3 mL nebu Inhale 3 mL as instructed every 6 hours. Unit dose pack. dr Park pulmonology. - spironolactone (ALDACTONE) 25 mg tablet Take 1 tablet by mouth once daily. - aspirin, enteric coated (ASPIRIN, ENTERIC COATED) [...] TO SWALLOW. Problem List As Of Date 09/29/2024 Noted Resolved Essential hypertension [I10] Acute, but ill-defined, cerebrovascular disease*09/28/2005 12/28/2016 Mixed hyperlipidemia [E78.2] Coronary atherosclerosis [I25.10] 1) Laparotomy 2) Joann gastroplasty 3) Wedge t* 06/30/2011 IRRITABLE COLON [K58.9 (more content not included)...[facility] 09-24-2024 NoteHNO ID: [id number] Author: NORMAN GARCIA APRN.CHAINMAN Service: ? Author Type: Nurse Practitioner Type: Progress Notes Filed: 09/24/2024 12:35 Note Text: SUBJECTIVE Keshia Rojas is a 74 year old female here today for a check up on her medical problems. Chief Complaint Patient presents with: 4 month f/u HPI Keshia Rojas is a 74-year-old female with a history of anxiety, presenting for follow-up. Keshia reports increased anxiety and questions the efficacy of her current diazepam regimen, which she has been taking since her attempted suicide. She is currently taking diazepam nightly. She also reports leg pain and cramping, particularly in the morning when getting out of her hospital bed. She attributes this to being on her feet for 5-6 hours a day at work. She recently received an injection for hip bursitis, which has reduced swelling on one side of her foot. She also mentions a separate incident where someone stepped on her foot, causing bruising and soreness. She is scheduled to see a tool or die drawing checker on November 12 for further evaluation. Keshia has been experiencing difficulties with her mail-order thyroid medication, noting delays in delivery. 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 Recording using [employer]) software for draft documentation of the visit was discussed with the patient/authorized patient accounting representative; all questions welcomed and answered. Patient/authorized patient accounting representative agreed to proceed Her medications were reviewed today and her list is now up to date. Medications Current Outpatient Medications Medication Sig levothyroxine (SYNTHROID) 88 mcg tablet Take 1 tablet by mouth once daily. Take on empty stomach. For Thyroid diazePAM (VALIUM) 5 mg tablet Take 1 tablet by mouth at bedtime as needed (vertigo or anxiety) for up to 180 days. Patient should start on September 21, 2024. lidocaine (LIDODERM) 5 % Apply 1 patch as directed once daily. Remove old patch after wearing for 12 hours and then 12 hours later apply new patch for 12 hours on the site and 12 hours off the site. Location: right lower back. gabapentin (NEURONTIN) 100 mg capsule Take 3 capsules by mouth daily at bedtime for 180 days. benzonatate (TESSALON PERLE) 100 mg capsule Take 1-2 capsules by mouth three times a day as needed for cough. amLODIPine (NORVASC) 5 mg tablet Take 1 tablet by mouth once daily. cyclobenzaprine (FLEXERIL) 5 mg tablet Take 1 tablet by mouth three times a day as needed for muscle spasm. ipratropium-albuterol (DUONEB) 0.5 mg-3 mg(2.5 mg base)/3 [...] Take 1 tablet by mouth twice daily. diclofenac (VOLTAREN) 1 % topical gel Apply 2 g to affected area four times daily. (Patient not taking: Reported on 05/21/2024) No current facility-administered medications for this visit. [...] mandibular pain, lymphadenopathy, possible angio edema per [facility] ER note 04/24/2022 Meclizine Swelling URINARY RETENTION,FACE FELT FUNNY Metoprol (more content not included)...[facility]07-11-2025 History of Present illness Narrative* Norman Garcia APRN.CHAINMAN - 09/24/2024 10:52 AM EDT SUBJECTIVE Keshia Rojas is a 74 year old female here today for a check up on her medical problems. Chief Complaint Patient presents with: 4 month f/u HPI Keshia Rojas is a 74-year-old female with a history of anxiety, presenting for follow-up. Keshia reports increased anxiety and questions the efficacy of her current diazepam regimen, which she has been taking since her attempted suicide. She is currently taking diazepam nightly. She also reports leg pain and cramping, particularly in the morning when getting out of her hospital bed. She attributes this to being on her feet for 5-6 hours a day at work. She recently received an injection for hip bursitis, which has reduced swelling on one side of her foot. She also mentions a separate incident where someone stepped on her foot, causing bruising and soreness. She is scheduled to see a tool or die drawing checker on November 12 for further evaluation. Keshia has been experiencing difficulties with her mail-order thyroid medication, noting delays in delivery. 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 Recording using [employer]) software for draft documentation of the visit was discussed with the patient/authorized patient accounting representative; all questions welcomed and answered. Patient/authorized patient accounting representative agreed to proceed Her medications were reviewed today and her list is now up to date. Medications Current Outpatient Medications Medication Sig levothyroxine (SYNTHROID) 88 mcg tablet Take 1 tablet by mouth once daily. Take on empty stomach. For Thyroid diazePAM (VALIUM) 5 mg tablet Take 1 tablet by mouth at bedtime as needed (vertigo or anxiety) for up to 180 days. Patient should start on September 21, 2024. lidocaine (LIDODERM) 5 % Apply 1 patch as directed once daily. Remove old patch after wearing for 12 hours and then 12 hours later apply new patch for 12 hours on the site and 12 hours off the site. Location: right lower back. gabapentin (NEURONTIN) 100 mg capsule Take 3 capsules by mouth daily at bedtime for 180 days. benzonatate (TESSALON PERLE) 100 mg capsule Take 1-2 capsules by mouth three times a day as needed for cough. amLODIPine (NORVASC) 5 mg tablet Take 1 tablet by mouth once daily. cyclobenzaprine (FLEXERIL) 5 mg tablet Take 1 tablet by mouth three times a day as needed for muscle spasm. ipratropium-albuterol (DUONEB) 0.5 mg-3 mg(2.5 mg base)/3 [...] Take 1 tablet by mouth twice daily. diclofenac (VOLTAREN) 1 % topical gel Apply 2 g to affected area four times daily. (Patient not taking: Reported on 05/21/2024) No current facility-administered medications for this visit. [...] mandibular pain, lymphadenopathy, possible angio edema per [facility] ER note 04/24/2022 Meclizine Swelling URINARY RETENTION,FACE [...] (D priority) Comment: 06/30/2011 PMH of hypothyroidism, [employer] meds synthroid 50mcg. Free T3 2.6. Plan: - Synthroid 50 mcg po at home . 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 Davon Infante ([facility]) Cough - 07/11/2019 Comment: Reviewed that had stress test and was referred to motion designer for further evaluation of cough. Bilateral Leg [...] Esophagus Without Dysplasia Comment: 11/02/12 EGD at [facility] (Dr. Charlton) Dysphagia - 02/05/2012 Obesity Anemia - 10/18/2010 Essential Hypertension Mixed Hyperlipidemia Coronary Atherosclerosis Irritable Bowel Syndrome Dysmetabolic Syndrome X Social History Tobacco Use Smoking status: Never Smokeless tobacco: Never Vaping Use Vaping status: Never Used Substance Use Topics Alcohol use: Yes Comment: occasionally rare Drug use: No Review of Systems Constitutional: Negative. Respiratory: Negative. Cardiovascular: Negative. OBJECTIVE BP 136/78 Pulse 77 Resp 16 Wt 205 lb 0.4 oz (93.0kg) Physical Exam Vitals and nursing note reviewed. [...] memory normal. Judgment: Judgment normal. ASSESSMENT/PLAN: 1. Diet-controlled diabetes mellitus (HCC) (E11.9) Clinically stable. - Ordered A1c. 2. Essential hypertension (I10) Blood pressure readings improved after initial elevation due to agitation. - Monitor blood pressure. 3. Mixed hyperlipidemia (E78.2) Clinically stable. - Ordered lipid panel. 4. Acquired hypothyroidism (E03.9) Clinically stable. - Ordered TSH. 5. Obesity, Class II, BMI 35-39.9 (E66.812) Clinically stable. - Ordered comprehensive metabolic panel. 6. Encounter for therapeutic drug monitoring (Z51.81) 7. Vitamin D deficiency (E55.9) Clinically stable. - Ordered Vitamin D level. 8. Anxiety (F41.9) Currently managed with diazepam; effectiveness questioned. - Adjusted diazepam to be taken as needed instead of daily. 9. Bursitis of other bursa of left hip (M70.72) Recent corticosteroid injection administered with noted improvement in swelling. - Monitor symptoms and follow-up as needed. Portions of this note have been entered [...] appointment.. Norman Garcia APRN-DARYL documented in this encounterCleveland [id number] Telephone encounter Note * Telephone Encounter - Reshma Carson LPN - 08/31/2024 3:54 PM EDT PATIENT NOTIFIED OF SAME. [facility]06-17-2025 Miscellaneous Notes* Telephone Encounter - Reshma Carson LPN - 08/31/2024 3:54 PM EDT PATIENT NOTIFIED OF SAME. * Telephone Encounter - Norman Garcia APRN.CNP - 08/31/2024 12:34 PM EDT Please let her know it has been sent. * Telephone Encounter - Shalonda Haro - 08/31/2024 10:35 AM EDT Patient is almost out and is asking if several pills can be sent to her local [facility] and the rest to her mail order pharmacy. Please call today with how provider will send the Rx's. [phone] Patient has been identified by name and date of : Yes, Patient phones for refill(s): Requested Prescriptions Pending Prescriptions Disp Refills levothyroxine (SYNTHROID) 88 mcg tablet 90 tablet 3 Sig: Take 1 tablet by mouth once daily. Take on empty stomach. For Thyroid Date of last office visit in primary care: 05/21/2024 Date of next office visit in primary care: 09/24/2024 Please advise. Thank you. Shalonda Haro. documented in [facility]Mer[facility] Telephone encounter Note * Telephone Encounter - Norman Garcia APRN.CNP - 08/31/2024 12:34 PM EDT Please let her know it has been sent. [facility]06-17-2025 Telephone encounter Note* Telephone Encounter - Shalonda Haro - 08/31/2024 10:35 AM EDT Patient is almost out and is asking if several pills can be sent to her local [facility] and the rest to her mail order pharmacy. Please call today with how provider will send the Rx's. [phone] Patient has been identified by name and date of : Yes, Patient phones for refill(s): Requested Prescriptions Pending Prescriptions Disp Refills levothyroxine (SYNTHROID) 88 mcg tablet 90 tablet 3 Sig: Take 1 tablet by mouth once daily. Take on empty stomach. For Thyroid Date of last office visit in primary care: 05/21/2024 Date of next office visit in primary care: 09/24/2024 Please advise. Thank you. Shalonda Haro. [facility]06-16-2025 Telephone encounter Note* Telephone Encounter - Maribel Brown RN - 08/30/2024 9:10 AM EDT [facility] and verified that pt has picked up script on 08/26/24 for 30 tablets ofValium. No further action needed regarding valium medication at this time. Will close this encounter. Maribel Brown RN [facility]06-16-2025 Miscellaneous Notes* Telephone Encounter - Maribel Brown RN - 08/30/2024 9:10 AM EDT [facility] and verified that pt has picked up script on 08/26/24 for 30 tablets ofValium. No further action needed regarding valium medication at this time. Will close this encounter. Maribel Brown RN * Telephone Encounter - Paulo Scott MD - 08/27/2024 9:56 AM EDT Not sure about the numbers and dates for Valium. The RXs are for 30 day supply with refills, so 30 pills with 5 refills lasts 180 days. Most recent refill was 08/26, so refill on 09/21 should be okay. Please double check whether needs a new RX sent or if current RX okay. * Telephone Encounter - Maribel Brown RN - 08/27/2024 8:54 AM EDT Noted recent Valium prescription sent to pt's pharmacy by Dr. Scott. Prescription not to start until 09/21/2024. Pt's last prescription was written for 180 days, but onlywith 150 tablets total, therefore pt is out of medication the rest of this month. This nurse askingif provider agreeable to allow pt to fill script now and not on 09/21? Please MyChart patient with Valium script update, per her request. Maribel Brown RN * Telephone Encounter - Paulo Scott MD - 08/26/2024 8:46 PM EDT The following approved medication requests have been transmitted electronically. Requested Prescriptions Signed Prescriptions Disp Refills diazePAM (VALIUM) 5 mg tablet 30 tablet 5 Sig: Take 1 tablet by mouth at bedtime as needed (vertigo or anxiety) for up to 180 days. Patient should start on September 21, 2024. Authorizing Provider: PAULO SCOTT MD * Telephone Encounter - Arleen Hamm LPN - 08/26/2024 11:35 AM EDT Patient has been identified by name and date of : Yes Patient phones for refill(s): Requested Prescriptions Pending Prescriptions Disp Refills diazePAM (VALIUM) 5 mg tablet 30 tablet 5 Sig: Take 1 tablet by mouth at bedtime as needed (vertigo or anxiety) for up to 180 days. Patient should start on September 21, 2024. Date of last office visit in primary care: 02/16/2019 Date of next office visit in primary care: 09/24/2024 Please advise. Thank you. Arleen Hamm LPN. documented in this encounterMer[facility] Telephone encounter Note * Telephone Encounter - Paulo Scott MD - 08/27/2024 9:56 AM EDT Not sure about the numbers and dates for Valium. The RXs are for 30 day supply with refills, so 30 pills with 5 refills lasts 180 days. Most recent refill was 08/26, so refill on 09/21 should be okay. Please double check whether needs a new RX sent or if current RX okay. [facility]06-13-2025 Telephone encounter Note* Telephone Encounter - Maribel Brown RN - 08/27/2024 8:54 AM EDT Noted recent Valium prescription sent to pt's pharmacy by Dr. Scott. Prescription not to start until 09/21/2024. Pt's last prescription was written for 180 days, but onlywith 150 tablets total, therefore pt is out of medication the rest of this month. This nurse askingif provider agreeable to allow pt to fill script now and not on 09/21? Please MyChart patient with Valium script update, per her request. Maribel Brown RN [facility]06-12-2025 Telephone encounter Note* Telephone Encounter - Paulo Scott MD - 08/26/2024 8:46 PM EDT The following approved medication requests have been transmitted electronically. Requested Prescriptions Signed Prescriptions Disp Refills diazePAM (VALIUM) 5 mg tablet 30 tablet 5 Sig: Take 1 tablet by mouth at bedtime as needed (vertigo or anxiety) for up to 180 days. Patient should start on September 21, 2024. Authorizing Provider: PAULO SCOTT MD [facility]06-12-2025 Telephone encounter Note* Telephone Encounter - Arleen Hamm LPN - 08/26/2024 11:35 AM EDT Patient has been identified by name and date of : Yes Patient phones for refill(s): Requested Prescriptions Pending Prescriptions Disp Refills diazePAM (VALIUM) 5 mg tablet 30 tablet 5 Sig: Take 1 tablet by mouth at bedtime as needed (vertigo or anxiety) for up to 180 days. Patient should start on September 21, 2024. Date of last office visit in primary care: 02/16/2019 Date of next office visit in primary care: 09/24/2024 Please advise. Thank you. Arleen Hamm LPN. T [facility]06-11-2025 Telephone encounter Note* Telephone Encounter - Shae Palencia RN - 08/25/2024 4:44 PM EDT Patient calls to ask why insurance is no longer covering the cost of her valium. Patient reports that the cost last month was $1.05 and this month $13. Recommended she contact the insurance company for this question as they will be able to better assist her with questions about insurance coverage. Patient to call back once she has spoke with insurance if she doesn't want to pay the cost of the valium monthly. Shae Palencia RN\ T [facility]06-11-2025 Miscellaneous Notes* Telephone Encounter - Shae Palencia RN - 08/25/2024 4:44 PM EDT Patient calls to ask why insurance is no longer covering the cost of her valium. Patient reports that the cost last month was $1.05 and this month $13. Recommended she contact the insurance company for this question as they will be able to better assist her with questions about insurance coverage. Patient to call back once she has spoke with insurance if she doesn't want to pay the cost of the valium monthly. Shae Palencia RN\ documented in this encounterMer[facility]06[facility] Discharge summary [facility] Medical Records Department [address] [place] [address] Emergency Department Summary 08/22/24 MR#: [id number] Acct: [id number] Name: KESHIA ROJAS Rep #:[id number] : 1950 74 From: Deepak Mendez MD PCP: Dr. Paulo Scott MD Status:RE G ER Location: ED HPI History of Present Illness Chief Complaint: Weakness Informant: patient and family Narrative Narrative: 74-year-old female with left back and posterior hip/buttock pain that radiates into her left thigh,this has been going on for some time so she had another back injection with pain management Dr. Paz 3 days ago, then she worked yesterday and was on her feet all day, pain gradually became worse, now is to the point where she is having trouble bearing weight and walking on it. She denies any new symptoms. No bowel or bladder dysfunction. No numbness. She has chronic peripheral neuropathy in her feet that feels like burning pain but not numb. That is no different. She states that she puts pressure on a point in her left buttock, it relieves the pain until she lets go. She denies any fevers or chills. She is on no anticoagulants just baby aspirin. [facility] Medical History Loss of hearing Wears glasses Wears partial dentures Post-menopausal Anxiety Thyroid disease Ambulates with cane Urinary incontinence Difficulty swallowing Gastric reflux Non-smoker History of echocardiogram History of stress test Seasonal allergies Hoarseness Leg cramps History of edema Shortness of breath on exertion Cardiology follow-up encounter History of cataract Ganglion cyst Atherosclerotic heart disease of [place] coronary artery without angina pectoris Cholelithiasis with [...] bilateral Arthritis Anemia Environmental allergies Home Medications ?Medication ?Instructions ?Recorded ?Last Taken ?Type gabapentin 100 mg capsule 300 mg PO QHS 01/11/1405/05 History diazepam 5 mg tablet 5 mg PO QHS PRN anxiety 12/1705/05/22 History aspirin 81 mg tablet,delayed 81 mg PO DAILY@0800 02/0905/05/22 History release multivitamin 1 tab PO DAILY 04/08/1904/17 History cholecalciferol (vitamin D3) 125 125 mcg PO DAILY 09/1505/05/22 History mcg (5,000 unit) capsule inhalational spacing device #1 ea 10/11/19 Unknown Rx (BreatheRite MDI Spacer) acetaminophen 500 mg capsule 500 mg PO Q6H PRN Pain Unknown History levothyroxine 88 mcg tablet 88 mcg PO DAILY 07/26/22 0 04/23/23 History ipratropium 0.5 mg-albuterol 3 mg 3 ml inhalation Q4H PRN PRN SOB 10/02/22 Unknown Rx (2.5 mg base)/3 mL nebulization &/OR WHEEZING #180 mL soln amlodipine 5 mg tablet 2.5 mg PO DAILY 01/31/2310/07 History cranberry fruit concentrate 250 mg 250 mg PO DAILY Unknown History chewable tablet (Azo Cranberry) pantoprazole 40 mg tablet,delayed 40 mg PO BID 90 days #180 tabs 08/15/23 Unknown Rx release spironolactone 25 mg tablet 25 mg PO 1700 PRN 08/15/23 Unknown History budesonide 0.5 mg/2 mL suspension 0.5 mg (2 mL) inhala tion Q12H #120 10/15/23 Unknown Rx for nebulization mL hydrocortisone 2.5 % topical cream 1 applic topical QD AY 12/01/23 Unknown History with perineal applicator lactulose 20 gram/30 mL oral 20 g (30 mL) PO QHS 90 da ys #2,700 02/20/24 Unknown Rx solution mL benzonatate 100 mg capsule 100 - 200 mg PO TID PRN cou gh 03/12/24 Unknown History oxycodone-acetaminophen 5 mg-325 1 tab PO Q6H PRN PRN Pain 3 days 08/22/24 Unknown Rx mg tablet #12 TABLETS Allergy/AdvReac Type Severity Reaction Status Date / Time latex Allergy Unknown PT UNSURE Verified 08/22/24 15:21 OF REACTION adhesive Allergy Unknown Verified 08/22/24 15:21 benzocaine (From Cetacaine) Allergy Unknown Verified 08/22/24 15:21 butamben (From Cetacaine) Allergy Vomiting Verified 08/22/24 15:21 cortisone (Cortisone) Allergy Unknown Verified 08/22/24 15:21 dipyridamole (From Aggrenox) Allergy Unknown Verified 08/22/24 15:21 lansoprazole (From Prevacid) Allergy Unknown Verified 08/22/24 15:21 meclizine Allergy Unknown Verified 08/22/24 15:21 methylprednisolone acetate Allergy Angioedema Verified 08/22/24 15:21 (From Depo-Medrol) metoprolol Allergy Unknown Verified 08/22/24 15:21 omeprazole (From Prilosec) Allergy Unknown Verified 08/22/24 15:21 omeprazole magnesium (From Allergy Unknown Verified 08/22/24 15:21 Prilosec) oxybutynin chloride (From Allergy Unknown Verified 08/22/24 15:21 Ditropan) povidone-iodine (From Allergy Unknown Verified 08/22/24 15:21 Betadine) sulfamethoxazole (From Allergy Unknown Verified 08/22/24 15:21 Bactrim) tegaserod (From Zelnorm) Allergy Hives Verified 08/22/24 15:21 tegaserod hydrogen maleate Allergy Unknown Verified 08/22/24 15:21 (From Zelnorm) tetracaine (From Cetacaine) Allergy Unknown Verified 08/22/24 15:21 tolterodine tartrate (From Allergy Unknown Verified 08/22/24 15:21 Detrol) trimethoprim (From Bactrim) Allergy Unknown Verified 08/22/24 15:21 lisinopril AdvReac Intermediate Angioedema Verified 08/22/24 15:21 adhesive tape AdvReac Rash Verified 08/22/24 15:21 codeine AdvReac Unknown Verified 08/22/24 15:21 mirabegron (From Myrbetriq) AdvReac Other Verified 08/22/24 15:21 tizanidine AdvReac Other Verified 08/22/24 15:21 vaccine adjuvant system, AdvReac Rash Verified 08/22/24 15:21 AS01B liposomal (From Shingrix (PF)) varicella-zoster virus AdvReac Rash Verified 08/22/24 15:21 glycoprotein E, recombinant (From Shingrix (PF)) Family History Mother Cancer Celiac disease Presence of permanent cardiac pacemaker Father Cancer Sister Hypertension Other Colon cancer Myocardial infarction Surgical History History of back surgery History of cholecystectomy Hx of dilation and curettage Hx of cardiac cath History of Robbie fundoplication S/P gastroplasty History of laparotomy Hx of tubal ligation hx of filter removal Hx of superior vena cava filter placement Hx of local excision of skin lesion History of esophagogastroduodenoscopy (EGD) Hx of colonoscopy H/O hernia repair History of tonsillectomy Social History Smoking Status: Never smoker alcohol intake: never substance use type: does not use caffeine: Yes Type: coffee Number of servings: 2 what type of physical activity do you participate in: walking frequency: 3-4 times per week ROS ROS ED Constitutional Constitutional ED: Denies chills or fever(s) Gastrointestinal Gastrointestinal: Denies abdominal pain, constipation, fecal incontinence, nausea or vomiting Genitourinary Genitourinary ED: Reports other Details: no urinary retention ; Denies abdominal discomfort or urinary incontinence Musculoskeletal Musculoskeletal: Reports as per HPI and back pain; Denies neck pain Integumentary Denies rash or wounds Neurologic Neurologic: Denies headache(s), paresthesias or weakness EXAM Physical Exam Const Vital Signs: 08/22/24 15:18 08/22/24 15:26 Temperature 98.4 F Temperature Source Oral Pulse Rate 78 Respiratory Rate 17 Respiratory Effort Normal Non-Labored Respiratory Pattern Normal Blood Pressure 154/77 H Blood Pressure Mean 102 Pulse Ox 97 Oxygen Delivery Method Room Air Positive well nourished and well developed General Appearance ED: well developed and NAD HEENT Negative for trauma or tenderness Eyes PERRL and EOMs intact bilaterally Neck full ROM and supple GI normal to inspection, nondistended, normoactive bowel sounds, soft to palpation and non-tender Back/Spine normal to inspection Lumbar Spine / Lower Back: ROM limited, paraspinal muscle tenderness left and straight leg raise negative bilaterally; Negative for lumbar spinal tenderness Extremity normal to inspection, full ROM and no pedal edema Neuro oriented x3 and no sensory deficits noted Sensorium / Orientation: alert Motor Exam: strength 5/5 throughout and clonus absent Deep Tendon Reflexes: Rt Patellar (L4): 2+, Lt Patellar (L4): 2+, Rt Ankle (S1):2+ and Lt Ankle (S1): 2+ Deep Tendon Reflexes Back: Rt Patellar (L4): 2+, Lt Patellar (L4): 2+, Rt Ankle (S1): 2+ and Lt Ankle (S1): 2+ Plantar Reflex: Downgoing: bilateral Psych mental status grossly normal and thought process normal Skin no rashes or lesions noted and no wounds [facility] MDM Narrative Medical decision making narrative: Patient does not have any symptoms or signs of cauda equina syndrome or conus medullaris syndrome..Her exam is benign, her straight leg raises reproduce no radicular symptoms. She is limited by pain, not weakness/numbness. She states she has constipation with prescription analgesics. She is already taking MiraLAX. 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 I advised her that this is a problem that may need to be difficult to fix emergently, she does not have any criteria for an emergent MRI here, nor do I think necessarily what it showed the problem. I reviewed prior MRI last year that she had as an outpati ent, breast she has severe spinal stenosis, L4-5 DDD that is fairly severe with facet arthritis, she indicates that is the area where she had the injection, that site is benign and no signs of infection there. My suspicion isthat she does not have a complication of the injection, it is just that she was putting stress on her back soon after the injection and it probably has not worked yet. Advised to call her pain management doctor tomorrow in the meantimewe will give her some analgesics and a prescription for some to use as needed, and advised increase her MiraLAX consumption. Discharge Plan Triage Chief Complaint: Weakness ED Provider: Deepak Mendez Dx/Rx/DC Orders Clinical Impression: Acute exacerbation of chronic low back pain, DDD (degenerative disc disease), lumbar, Lumbar spinalstenosis Instructions: ED Back Pain (Acute or Chronic) Prescriptions: New oxycodone-acetaminophen 5-325 mg tablet 1 tab PO Q6H PRN PRN (Reason: Pain) 3 Days Qty: 12 0RF No Action multivitamin Tablet 1 tab PO DAILY diazepam 5 mg tablet 5 mg PO QHS PRN (Reason: anxiety) (DME) BreatheRite MDI Spacer Spacer See Rx Instructions .ROUTE .MEDSUPPLY Qty: 1 0RF Rx Instructions: As directed cholecalciferol (vitamin D3) 125 mcg (5,000 unit) capsule 125 mcg PO DAILY ipratropium-albuterol 0.5 mg-3 mg(2.5 mg base)/3 mL solution for nebulization 3 ml inhalation Q4H PRN PRN (Reason: SOB &/OR WHEEZING) Qty: 180 11RF levothyroxine 88 mcg tablet 88 mcg PO DAILY amlodipine 5 mg tablet 2.5 mg PO DAILY Azo Cranberry 250 mg tablet,chewable 250 mg PO DAILY spironolactone 25 mg tablet 25 mg PO 1700 PRN budesonide 0.5 mg/2 mL suspension for nebulization 0.5 mg inhalation Q12H Qty: 120 11RF pantoprazole 40 mg tablet,delayed release (DR/EC) 40 mg PO BID 90 Days Qty: 180 2RF lactulose 20 gram/30 mL solution 20 g PO QHS 90 Days Qty: 2700 2RF Rx Instructions: Take 30ml by mouth every night. hydrocortisone 2.5 % cream with perineal applicator 1 applic topical QDAY benzonatate 100 mg capsule 100 - 200 mg PO TID PRN (Reason: cough) gabapentin 100 MG capsule 300 mg PO QHS aspirin 81 MG tablet 81 mg PO DAILY@0800 acetaminophen 500 mg Capsule 500 mg PO Q6H PRN (Reason: Pain) Primary Care Provider: Paulo Scott Referrals: Crystal Paz MD [Med Staff - Active Staff] - As soon as possible Activity Restrictions/Additional Instructions: Increase your MiraLAX while taking the prescription pain medication 2-3 capfuls twice daily and drink plenty of water. Print Language: Kosovan Disposition Disposition: Home, Self Care What to do if you have Problems For any increased pain, shortness of breath, bleeding, nausea or vomiting, chestpain, or any unexpected problems, contact your Primary Care Provider. Call [facility] ([phone]) or report tothe closest Emergency Room. Call 911 if necessary. 08/22/24 1608 Cosigner Signature (if applicable): CC: Dr. Crystal Paz MD; Dr. Paulo Scott MD ~ Signed [facility]06-08-2025 Discharge summary Author Deepak Vanessa [facility] Note Date/Time August 22, 2024 4:08p m [facility] Medical Records Department [address] [place] [address] Emergency Department Summary 08/22/24 MR#: [id number] Acct: [id number] Name: KESHIA ROJAS Rep #:[id number] : 1950 74 From: Deepak Mendez MD PCP: Dr. Paulo Scott MD Status:RE G ER Location: ED HPI History of Present Illness Chief Complaint: Weakness Informant: patient and family Narrative Narrative: 74-year-old female with left back and posterior hip/buttock pain that radiates into her left thigh, this has been going on for some time so she had another back injection with pain management Dr. Paz 3 days ago, then she worked yesterday and was on her feet all day, pain gradually became worse, now is to the point where she is having trouble bearing weight and walking on it. She denies any new symptoms. No bowel or bladder dysfunction. No numbness. She has chronic peripheral neuropathy in her feet that feels like burning pain but not numb. That is no different. She states that she puts pressure on a point in her left buttock, it relieves the pain until she lets go. She denies any fevers or chills. She is on no anticoagulants just baby aspirin. [facility] Medical History Loss of hearing Wears glasses Wears partial dentures Post-menopausal Anxiety Thyroid disease Ambulates with cane Urinary incontinence Difficulty swallowing Gastric reflux Non-smoker History of echocardiogram History of stress test Seasonal allergies Hoarseness Leg cramps History of edema Shortness of breath on exertion Cardiology follow-up encounter History of cataract Ganglion cyst Atherosclerotic heart disease of [place] coronary artery without angina pectoris Cholelithiasis with [...] bilateral Arthritis Anemia Environmental allergies Home Medications ?Medication ?Instructions ?Recorded ?Last Taken ?Type gabapentin 100 mg capsule 300 mg PO QHS 01/11/1405/05 History diazepam 5 mg tablet 5 mg PO QHS PRN anxiety 12/1705/05/22 History aspirin 81 mg tablet,delayed 81 mg PO DAILY@0800 02/0905/05/22 History release multivitamin 1 tab PO DAILY 04/08/1904/17 History cholecalciferol (vitamin D3) 125 125 mcg PO DAILY 09/1505/05/22 History mcg (5,000 unit) capsule inhalational spacing device #1 ea 10/11/19 Unknown Rx (BreatheRite MDI Spacer) acetaminophen 500 mg capsule 500 mg PO Q6H PRN Pain Unknown History levothyroxine 88 mcg tablet 88 mcg PO DAILY 07/26/22 0 04/23/23 History ipratropium 0.5 mg-albuterol 3 mg 3 ml inhalation Q4H PRN PRN SOB 10/02/22 Unknown Rx (2.5 mg base)/3 mL nebulization &/OR WHEEZING #180 mL soln amlodipine 5 mg tablet 2.5 mg PO DAILY 01/31/2310/07 History cranberry fruit concentrate 250 mg 250 mg PO DAILY Unknown History chewable tablet (Azo Cranberry) pantoprazole 40 mg tablet,delayed 40 mg PO BID 90 days #180 tabs 08/15/23 Unknown Rx release spironolactone 25 mg tablet 25 mg PO 1700 PRN 08/15/23 Unknown History budesonide 0.5 mg/2 mL suspension 0.5 mg (2 mL) inhala tion Q12H #120 10/15/23 Unknown Rx for nebulization mL hydrocortisone 2.5 % topical cream 1 applic topical QD AY 12/01/23 Unknown History with perineal applicator lactulose 20 gram/30 mL oral 20 g (30 mL) PO QHS 90 da ys #2,700 02/20/24 Unknown Rx solution mL benzonatate 100 mg capsule 100 - 200 mg PO TID PRN cou gh 03/12/24 Unknown History oxycodone-acetaminophen 5 mg-325 1 tab PO Q6H PRN PRN Pain 3 days 08/22/24 Unknown Rx mg tablet #12 TABLETS Allergy/AdvReac Type Severity Reaction Status Date / Time latex Allergy Unknown PT UNSURE Verified 08/22/24 15:21 OF REACTION adhesive Allergy Unknown Verified 08/22/24 15:21 benzocaine (From Cetacaine) Allergy Unknown Verified 08/22/24 15:21 butamben (From Cetacaine) Allergy Vomiting Verified 08/22/24 15:21 cortisone (Cortisone) Allergy Unknown Verified 08/22/24 15:21 dipyridamole (From Aggrenox) Allergy Unknown Verified 08/22/24 15:21 lansoprazole (From Prevacid) Allergy Unknown Verified 08/22/24 15:21 meclizine Allergy Unknown Verified 08/22/24 15:21 methylprednisolone acetate Allergy Angioedema Verified 08/22/24 15:21 (From Depo-Medrol) metoprolol Allergy Unknown Verified 08/22/24 15:21 omeprazole (From Prilosec) Allergy Unknown Verified 08/22/24 15:21 omeprazole magnesium (From Allergy Unknown Verified 08/22/24 15:21 Prilosec) oxybutynin chloride (From Allergy Unknown Verified 08/22/24 15:21 Ditropan) povidone-iodine (From Allergy Unknown Verified 08/22/24 15:21 Betadine) sulfamethoxazole (From Allergy Unknown Verified 08/22/24 15:21 Bactrim) tegaserod (From Zelnorm) Allergy Hives Verified 08/22/24 15:21 tegaserod hydrogen maleate Allergy Unknown Verified 08/22/24 15:21 (From Zelnorm) tetracaine (From Cetacaine) Allergy Unknown Verified 08/22/24 15:21 tolterodine tartrate (From Allergy Unknown Verified 08/22/24 15:21 Detrol) trimethoprim (From Bactrim) Allergy Unknown Verified 08/22/24 15:21 lisinopril AdvReac Intermediate Angioedema Verified 08/22/24 15:21 adhesive tape AdvReac Rash Verified 08/22/24 15:21 codeine AdvReac Unknown Verified 08/22/24 15:21 mirabegron (From Myrbetriq) AdvReac Other Verified 08/22/24 15:21 tizanidine AdvReac Other Verified 08/22/24 15:21 vaccine adjuvant system, AdvReac Rash Verified 08/22/24 15:21 AS01B liposomal (From Shingrix (PF)) varicella-zoster virus AdvReac Rash Verified 08/22/24 15:21 glycoprotein E, recombinant (From Shingrix (PF)) Family History Mother Cancer Celiac disease Presence of permanent cardiac pacemaker Father Cancer Sister Hypertension Other Colon cancer Myocardial infarction Surgical History History of back surgery History of cholecystectomy Hx of dilation and curettage Hx of cardiac cath History of Robbie fundoplication S/P gastroplasty History of laparotomy Hx of tubal ligation hx of filter removal Hx of superior vena cava filter placement Hx of local excision of skin lesion History of esophagogastroduodenoscopy (EGD) Hx of colonoscopy H/O hernia repair History of tonsillectomy Social History Smoking Status: Never smoker alcohol intake: never substance use type: does not use caffeine: Yes Type: coffee Number of servings: 2 what type of physical activity do you participate in: walking frequency: 3-4 times per week ROS ROS ED Constitutional Constitutional ED: Denies chills or fever(s) Gastrointestinal Gastrointestinal: Denies abdominal pain, constipation, fecal incontinence, nausea or vomiting Genitourinary Genitourinary ED: Reports other Details: no urinary retention ; Denies abdominal discomfort or urinary incontinence Musculoskeletal Musculoskeletal: Reports as per HPI and back pain; Denies neck pain Integumentary Denies rash or wounds Neurologic Neurologic: Denies headache(s), paresthesias or weakness EXAM Physical Exam Const Vital Signs: 08/22/24 15:18 08/22/24 15:26 Temperature 98.4 F Temperature Source Oral Pulse Rate 78 Respiratory Rate 17 Respiratory Effort Normal Non-Labored Respiratory Pattern Normal Blood Pressure 154/77 H Blood Pressure Mean 102 Pulse Ox 97 Oxygen Delivery Method Room Air Positive well nourished and well developed General Appearance ED: well developed and NAD HEENT Negative for trauma or tenderness Eyes PERRL and EOMs intact bilaterally Neck full ROM and supple GI normal to inspection, nondistended, normoactive bowel sounds, soft to palpation and non-tender Back/Spine normal to inspection Lumbar Spine / Lower Back: ROM limited, paraspinal muscle tenderness left and straight leg raise negative bilaterally; Negative for lumbar spinal tenderness Extremity normal to inspection, full ROM and no pedal edema Neuro oriented x3 and no sensory deficits noted Sensorium / Orientation: alert Motor Exam: strength 5/5 throughout and clonus absent Deep Tendon Reflexes: Rt Patellar (L4): 2+, Lt Patellar (L4): 2+, Rt Ankle (S1):2+ and Lt Ankle (S1): 2+ Deep Tendon Reflexes Back: Rt Patellar (L4): 2+, Lt Patellar (L4): 2+, Rt Ankle (S1): 2+ and Lt Ankle (S1): 2+ Plantar Reflex: Downgoing: bilateral Psych mental status grossly normal and thought process normal Skin no rashes or lesions noted and no wounds MDM MDM MDM Narrative Medical decision making narrative: Patient does not have any symptoms or signs of cauda equina syndrome or conus medullaris syndrome.. Her exam is benign, her straight leg raises reproduce no radicular symptoms. She is limited by pain, not weakness/numbness. She states she has constipation with prescription analgesics. She is already taking MiraLAX. 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 I advised her that this is a problem that may need to be difficult to fix emergently, she does not have any criteria for an emergent MRI here, nor do I think necessarily what it showed the problem. I reviewed prior MRI last year that she had as an outpatient, breast she has severe spinal stenosis, L4-5 DDD that is fairly severe with facet arthritis, she indicates that is the area where she had the injection, that site is benign and no signs of infection there. My suspicion isthat she does not have a complication of the injection, it is just that she was putting stress on her back soon after the injection and it probably has not worked yet. Advised to call her pain management doctor tomorrow in the meantimewe will give her some analgesics and a prescription for some to use as needed, and advised increase her MiraLAX consumption. Discharge Plan Triage Chief Complaint: Weakness ED Provider: Deepak Mendez Dx/Rx/DC Orders Clinical Impression: Acute exacerbation of chronic low back pain, DDD (degenerative disc disease), lumbar, Lumbar spinal stenosis Instructions: ED Back Pain (Acute or Chronic) Prescriptions: New oxycodone-acetaminophen 5-325 mg tablet 1 tab PO Q6H PRN PRN (Reason: Pain) 3 Days Qty: 12 0RF No Action multivitamin Tablet 1 tab PO DAILY diazepam 5 mg tablet 5 mg PO QHS PRN (Reason: anxiety) (DME) B[employer]he[employer] MDI Spacer Spacer See Rx Instructions .ROUTE .MEDSUPPLY Qty: 1 0RF Rx Instructions: As directed cholecalciferol (vitamin D3) 125 mcg (5,000 unit) capsule 125 mcg PO DAILY ipratropium-albuterol 0.5 mg-3 mg(2.5 mg base)/3 mL solution for nebulization 3 ml inhalation Q4H PRN PRN (Reason: SOB &/OR WHEEZING) Qty: 180 11RF levothyroxine 88 mcg tablet 88 mcg PO DAILY amlodipine 5 mg tablet 2.5 mg PO DAILY Azo Cranberry 250 mg tablet,chewable 250 mg PO DAILY spironolactone 25 mg tablet 25 mg PO 1700 PRN budesonide 0.5 mg/2 mL suspension for nebulization 0.5 mg inhalation Q12H Qty: 120 11RF pantoprazole 40 mg tablet,delayed release (DR/EC) 40 mg PO BID 90 Days Qty: 180 2RF lactulose 20 gram/30 mL solution 20 g PO QHS 90 Days Qty: 2700 2RF Rx Instructions: Take 30ml by mouth every night. hydrocortisone 2.5 % cream with perineal applicator 1 applic topical QDAY benzonatate 100 mg capsule 100 - 200 mg PO TID PRN (Reason: cough) gabapentin 100 MG capsule 300 mg PO QHS aspirin 81 MG tablet 81 mg PO DAILY@0800 acetaminophen 500 mg Capsule 500 mg PO Q6H PRN (Reason: Pain) Primary Care Provider: Paulo Scott Referrals: Crystal Paz MD [Med Staff - Active Staff] - As soon as possible Activity Restrictions/Additional Instructions: Increase your MiraLAX while taking the prescription pain medication 2-3 capfuls twice daily and drink plenty of water. Print Language: Kosovan Disposition Disposition: Home, Self Care What to do if you have Problems For any increased pain, shortness of breath, bleeding, nausea or vomiting, chestpain, or any unexpected problems, contact your Primary Care Provider. Call [facility] ([phone]) or report to the closest Emergency Room. Call 911 if necessary. 08/22/24 1608 <Electronically signed by Deepak Mendez MD> Cosigner Signature (if applicable): CC: Dr. Crystal Paz MD; Dr. Paulo Scott MD ~ Signed [facility] Work Phone: 1(126) 234-841906-08-2025 Hospital Discharge instructions Additional Instructions Increase your MiraLAX while taking the prescription pain medication 2-3 capfuls twice daily and drink plenty of water.[facility] Work Phone: 1(908) 352-740604-04-2025 Evaluation note* Diagnosis Onset Date Resolution Status Admit Date Trochanteric bursitis, left hip acut e June 18, 2024 10:57am Abdominal pain chronic June 18, 2024 12:59pm Barretts esophagus chronic June 18, 2024 12:59pm [facility] Work Phone: 1(637) 219-809204-04-2025 Evaluation note* Diagnosis Onset Date Resolution Status Admit Date Trochanteric bursitis, left hip acut e June 18, 2024 10:57am Abdominal pain chronic June 18, 2024 12:59pm Barretts esophagus chronic June 18, 2024 12:59pm Atherosclerotic heart diseas e of [place] coronary artery without angina pectoris chronic October 15, 2024 9:58am Essential hypertension chronic 2024 9:58am [facility] Work Phone: 1(741) 821-810503-12-2025 Radiology Diagnostic study note [facility] Imaging Services [address] [place] [address] Shoulder min 2 Views MR#: [id number] Acct: [id number] Name: KESHIA ROJAS Rep #: [id number] : 1950 F 74 From: Salo Singer MD PCP: Dr. Paulo Scott MD Status: RE G CLI Study:Shoulder min 2 Views Date of Exam: 05/26/24 Exam# [id number] Ordering Dr: Agus Paz MD PROCEDURE: SHOULDER [...] tuberosity of theproximal left humerus. Reading Location: [place] [address] CC: Dr. Crystal Paz MD; Dr. Paulo Scott MD ~ Media Services Director: Signed [facility]03-07-2025 History of Present illness Narrative* Juan Rodriguez, GIDEON.JEWEL SORTER - 05/21/2024 1:20 PM EST SUBJECTIVE: Shingrix Vaccine(2 of 3) due on [...] doesn't work she doesn't eat.States spent all oftheir money. Hypothyroidism. She doing well on her [...] GERD/Barretts: Stable, no current complaints. Following with DrShabnam Casper. No recent EGD is reported.No upcoming appointmnt with gastroenterology. Review of Systems [...] and oriented to person, place, and time. 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 ALLERGIES Allergen Reactions Adhesive Rash [...] mandibular pain, lymphadenopathy, possible angio edema per [facility] ER note 04/24/2022 Meclizine Swelling URINARY RETENTION,FACE [...] 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 11/02/12 EGD at [facility] (Dr. Charlton) Cataracts, both eyes Coronary atherosclerosis of unspecified type of vessel, [place] or graft minimal plaque on cath 08/06/2006 DVT (deep venous thrombosis) ([facility]) 2010 Right leg OCTOBER 2009 NOT TREATED Dysmetabolic syndrome X Esophageal reflux Fibromyalgia better with Lyrica Floppy eyelid syndrome Hiatal hernia Large when seen on EGD 10/2010 at [facility] (Dr. Chavarria) Irritable bowel syndrome Obesity Osteoarthritis [...] Lymph 1.00 - 4.00 k/uL 2.95 2.67 [place]% % 10.2 8.2 Abs [place] <0.87 k/uL 0.93 (H) 0.70 Eosin% % [...] 719.46, 338.29, ICD10: M25.562, G89.29 Following with [facility], getting injections in the knee joint [...] YR, HIGH DOSE, TRIVALENT (FLUZONE HIGH-DOSE) - [employer] COVID-19 VACCINE AGE 12+ YR (COMIRNATY) Juan Rodriguez APRN.CNS Medical Decision Making: Problems: Moderate: 2+ stable chronic illnesses Data: Unique test result(s) reviewed: 3+ Risk: Moderate: Drug management Medical Decision Making Level: 4 - Moderate documented in this encounterMer[facility]03-07-2025 NoteHNO ID: [id number] Author: JUAN RODRIGUEZ APRN.JEWEL SORTER Service: ? Author Type: Nurse Specialist Type: [...] and oriented to person, place, and time. 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 ALLERGIES Allergen Reactions Adhesive Rash [...] mandibular pain, lymphadenopathy, possible angio edema per [facility] ER note 04/24/2022 Meclizine Swelling URINARY RETENTION,FACE FELT FUNNY Metoprolol GI Upset headache.itching.hives. Myrbetriq [Mirabegr* Other: See Comments elevated BP Prevacid [Lansopraz* GI Upset GAS,BURPING HEADACHE Prilosec [Omeprazol* Diarrhea Tape [Adhesive Tape* Rash Paper (more content not included)...[facility]12-20-2024 History of Present illness Narrative* Geoffrey Bond Mammo Tech - 03/05/2024 1:30 PM EST Radiology Service Progress Note PATIENT NAME: Keshia [...] PATIENT PRESENTS WITH AN IMPLANTABLE OR ATTACHED REGISTERED DENTAL HYGIENIST: No RADIOLOGY DEPARTMENT: Mammography PERIPHERAL IV DATA: Not applicable SIGNED BY: Tova Valenzuela March 05, 2024 1:40 PM documented in this encounterMer[facility]12-20-2024 NoteHNO ID: [id number] Author: GEOFFREY BOND Mammo Tech Service: ? Author Type: Aerospace Quality Engineer Type: Progress Notes Filed: 03/05/2024 13:40 Note [...] PATIENT PRESENTS WITH AN IMPLANTABLE OR ATTACHED REGISTERED DENTAL HYGIENIST: No RADIOLOGY DEPARTMENT: Mammography PERIPHERAL IV DATA: Not applicable SIGNED BY: Tova Valenzuela March 05, 2024 1:40 [facility]12-12-2024 Telephone encounter Note* Telephone Encounter - Paulo Scott MD - 2024 4:57 PM EST PDMP reviewed. Filled 02/23--no more refills on prior RX The following approved medication requests have been transmitted electronically. Requested Prescriptions Signed Prescriptions Disp Refills diazePAM (VALIUM) 5 mg tablet 30 tablet 5 Sig: Take 1 tablet by mouth at bedtime as needed (vertigo or anxiety) for up to 180 days. Patient should start on March 25, 2024. Authorizing Provider: PAULO SCOTT MD [facility]12-12-2024 Miscellaneous Notes* Telephone Encounter - Paulo Scott MD - 2024 4:57 PM EST PDMP reviewed. Filled 02/23--no more refills on prior RX The following approved medication requests have been transmitted electronically. Requested Prescriptions Signed Prescriptions Disp Refills diazePAM (VALIUM) 5 mg tablet 30 tablet 5 Sig: Take 1 tablet by mouth at bedtime as needed (vertigo or anxiety) for up to 180 days. Patient should start on March 25, 2024. Authorizing Provider: PAULO SCOTT MD * Telephone Encounter - Adalgisa Jim LPN - 02/23/2024 3:05 PM EST Prescription Refill Information The patient has been [...] 23, 2024 3:05 PM documented in this encounterMer[facility]12-09-2024 Telephone encounter Note * Telephone Encounter - Adalgisa Jim LPN - 02/23/2024 3:05 PM EST Prescription Refill Information The patient has been [...] Jim LPN February 23, 2024 3:05 PM [facility]12-06-2024 Evaluation note* Diagnosis Onset Date Resolution Status Admit Date Diarrhea acute February 20, 2024 1:02pm Abdominal pain chronic February 192023 1:02pm Barretts esophagus chronic Decemb er 2023 1:02pm Right knee DJD acute February 152023 10:26am Right knee DJD acute April 022024 8:59am Right knee DJD acute April 092024 10:36am Right knee DJD acute April 162024 9:19am [facility] Work Phone: 1(924) 812-755812-06-2024 Telephone encounter Note* Telephone Encounter - Nicole Hrerera LPN - 02/20/2024 11:20 AM EST Patient calling has not received her mail away pharmacy has not processed her Gabapentin rx as yet.She is out of the 7 day rx sent locally, now needs another rx sent [facility]. [facility] her. Pending rx to go to [facility]. Please advise The patient has been identified [...] Herrera LPN February 20, 2024 11:26 AM [facility]12-06-2024 Miscellaneous Notes* Telephone Encounter - Nicole Herrera LPN - 02/20/2024 11:20 AM EST Patient calling has not received her mail away pharmacy has not processed her Gabapentin rx as yet.She is out of the 7 day rx sent locally, now needs another rx sent locally. [facility] and get it sent to her. Pending rx to go to [facility]. Please advise The patient has been identified [...] 20, 2024 11:26 AM documented in this encounterMer[facility]11-27-2024 Telephone encounter Note * Telephone Encounter - Erika Polk LPN - 02/11/2024 1:44 PM EST Left a message that medication has been sent to the pharmacy. Erika Polk LPN [facility]11-27-2024 Miscellaneous Notes* Telephone Encounter - Erika [...] her gabapentin refill [facility] and [facility] her[facility] days. Reports she is out of medication and asking pcp to send short supplyto [facility]. Pended. documented in this encounterMercy [facility]11-27-2024 Telephone encounter Note * Telephone Encounter - Paulo Scott MD - 02/11/2024 1:17 PM EST The following approved medication requests have been transmitted electronically. Requested Prescriptions Signed Prescriptions Disp Refills gabapentin (NEURONTIN) 100 mg capsule 21 capsule 0 Sig: Take 3 capsules by mouth daily at bedtime for 180 days. Authorizing Provider: PAULO SCOTT MD [facility]11-27-2024 Telephone encounter Note* Telephone Encounter - Marisel Randall RN - 02/11/2024 10:26 AM EST Patient reports she has not received her gabapentin refill from mail [facility] and [facility] hershe [facility] it in 7 days. Reports she is out of medication and asking pcp to send short supplyto [facility]. Pended. [facility]11-08-2024 NoteHNO ID: [id number] Author: NORMAN GARCIA APRN.DARYL Service: ? Author Type: Nurse Practitioner Type: [...] mandibular pain, lymphadenopathy, possible angio edema per [facility] ER note 04/24/2022 Meclizine Swelling URINARY RETENTION,FACE [...] for shortness of johnny (more content not included)...[facility]11-08-2024 History of Present illness Narrative* Norman Garcia APRN.CHAINMAN - 01/23/2024 1:21 PM EST SUBJECTIVE Keshia [...] mandibular pain, lymphadenopathy, possible angio edema per [facility] ER note 04/24/2022 Meclizine Swelling URINARY RETENTION,FACE [...] (D priority) Comment: 06/30/2011 PMH of hypothyroidism, FLOORING PROFESSIONAL meds synthroid 50mcg. Free T3 2.6. Plan: - Synthroid 50 mcg po at home . 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 Davon Infante ([facility]) Cough - 07/11/2019 Comment: Reviewed that had stress test and was referred to motion designer for further evaluation of cough. Bilateral Leg [...] Esophagus Without Dysplasia Comment: 11/02/12 EGD at [facility] (Dr. Charlton) Dysphagia - 02/05/2012 Obesity [...] would like swabbed to ensure no COVID/flu/rsv. Tessalon okay, suspect viral etiology at this point. - [...] appointment.. Norman Garcia APRN-DARYL documented in this encounterMercy [facility]08-27-2024 Telephone encounter Note * Telephone Encounter [...] Salena Rowan November 11, 2023 10:20 AM [facility]08-27-2024 Miscellaneous Notes* Telephone Encounter - Salena [...] 11, 2023 10:20 AM documented in this encounterMercy Health [facility]08-02-2024 History of Present illness Narrative* Juan Rodriguez, GIDEON.JEWEL SORTER - 10/17/2023 10:20 AM EDT SUBJECTIVE: Depression [...] has 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 She notes limited fluid intake yesterday due [...] and oriented to person, place, and time. 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 ALLERGIES Allergen Reactions Adhesive Rash [...] mandibular pain, lymphadenopathy, possible angio edema per [facility] ER note 04/24/2022 Meclizine Swelling URINARY RETENTION,FACE [...] esophagus without dysplasia Comment: 11/02/12 EGD at [facility] (Dr. Charlton) No date: Cataracts, both eyes No date: Coronary atherosclerosis of unspecified type of vessel, [place] or graft Comment: minimal plaque on cath 08/06/2006 2010: DVT (deep venous thrombosis) ([facility]) Comment: Right leg OCTOBER 2009 NOT TREATED No date: Dysmetabolic syndrome X No date: Esophageal reflux No date: Fibromyalgia Comment: better with Lyrica No date: Floppy eyelid syndrome No date: Hiatal hernia Comment: Large when seen on EGD 10/2010 at [facility] (Dr. Chavarria) No date: Irritable bowel syndrome [...] Abs Lymph 1.00 - 4.00 k/uL 2.95 [place]% % 10.2 Abs [place] <0.87 k/uL 0.93 (H) Eosin% % 8.0 [...] TOPICAL CREAM WITH PERINEAL APPLICATOR Juan Rodriguez APRN.CNS Medical Decision Making: Problems: Low: Acute, uncomplicated illness or injury Risk: Moderate: Drug management Medical Decision Making Level: 3 - Low documented in this encounterMercy [facility]08-02-2024 NoteHNO ID: [id number] Author: JUAN RODRIGUEZ APRN.JEWEL SORTER Service: ? Author Type: Nurse Specialist Type: Progress Notes Filed: 10/17/2023 10:52 Note Text: SUBJECTIVE: Depression Screening Never done RSV Vaccine(1 - 1-dose 60+ series) Never done Shingrix Vaccine(2 of 3) due on 05/01/2012 DTaP,Tdap,Td Vaccine(1 - Tdap) due on 11/19/2019 Covid-19 Vaccine(3 - 2022-24 season) due on 11/15/2022 Advance Directive Discussion [...] has 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 She notes limited fluid intake yesterday due [...] and oriented to person, place, and time. 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 ALLERGIES Allergen Reactions Adhesive Rash [...] mandibular pain, lymphadenopathy, possible angio edema per [facility] ER note 04/24/2022 Meclizine Swelling URINARY RETENTION,FACE FELT FUNNY Metoprolol GI Upset headache.itching.hives. Myrbetriq [Mirabegr* Other: See Comments elevated BP Prevacid [Lansopraz* GI Upset GAS,BURPING HEADACHE Prilosec [Omeprazol* Diarrhea Tape [Adhesive Tape* Rash Paper tape Tizanidine Other: See Comments increased (more content not included)...[facility]08-02-2024 Telephone encounter Note* Telephone Encounter - Erika [...] today 10-17-23 with provider/team. Erika Polk LPN [facility]08-02-2024 Miscellaneous Notes* Telephone Encounter - Erika [...] provider/team. Erika Polk LPN documented in this encounterMercy [facility]07-31-2024 NotePatient Outreach (INTMMN) KESHIA ROJAS ([id number]) 1950 F Date Time Provider Department 10/15/23 [...] BETADINE (POVIDONE-IODINE) 11/04/2006 2 - Rash CETACAINE ([id number]*09/11/2012 14 - Other: See Comments Comments: excessive [...] mandibular pain, lymphadenopathy, possible angio edema per [facility] ER note 04/24/2022 MECLIZINE 03/07/2006 7 - [...] for screening mammogram for breast cancer [Z12.31] Order(s):FORTUNATO SCREENING W MITCHELL [[id number]] Order #: [id number] FUTURE Prescriptions as of 10/20/2023 - lactulose [...] Noted Resolved Essential hypert (more content not included)...[facility] 09-22-2023 Telephone encounter Note* Telephone Encounter - [...] 24, 2023. Authorizing Provider: PAULO SCOTT MD [facility]07-08-2024 Miscellaneous Notes* Telephone Encounter - Paulo [...] instead. Jessica Saini LPN documented in this encounterMercy Health Lorain Hospital07-08-2024 Telephone encounter Note * Telephone Encounter - Jessica Saini LPN - 09/22/2023 9:33 AM EDT Pt calls to report that she had OV 09/17/23 and rx for diazepam when to [facility] instead of [facility]. Pt is asking if rx can be sent to [facility] instead. Jessica Saini LPN [facility]07-03-2024 History of Present illness Narrative* Paulo Scott MD - 09/17/2023 2:14 PM EDT This note was created using Mobile Event Guideter. 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 Charlton) Cataracts, both eyes Coronary atherosclerosis of unspecified type of vessel, [place] or graft minimal plaque on cath 08/06/2006 DVT (deep venous thrombosis) (HCC) 2010 Right leg OCTOBER 2009 NOT TREATED Dysmetabolic syndrome X Esophageal reflux Fibromyalgia better with Lyrica Floppy eyelid syndrome Hiatal hernia Large when seen on EGD 10/2010 at [facility] (Dr. Chavarria) Irritable bowel syndrome Obesity Osteoarthritis [...] Lymph 1.00 - 4.00 k/uL 2.95 2.67 Dinwiddie% % 10.2 8.2 Abs Dinwiddie <0.87 k/uL 0.93 (H) 0.70 Eosin% % [...] To follow up with Dr. Reilly fowler [facility]. To get a brace 4. Vertigo R42 [...] lipids. Paulo Scott MD documented in this encounterMercy Health Lorain Hospital06-06-2024 Telephone encounter Note * Telephone Encounter [...] by mouth once daily. Paulo Scott MD [facility]06-06-2024 Miscellaneous Notes* Telephone Encounter - Paulo [...] Paulo Scott MD * Telephone Encounter - [place] Zuleika Rowan - 08/21/2023 10:12 AM EDT [...] Thank you. Zuleika Rowan. documented in this encounterMercy Health Lorain Hospital06-06-2024 Telephone encounter Note * Telephone Encounter - [place] Zuleika Rowan - 08/21/2023 10:12 AM EDT [...] 09/17/2023 Please advise. Thank you. Zuleika Rowan. [facility]05-07-2024 Instructions* Patient Instructions* Whit Demarco PA - 07/22/2023 4:39 PM EDT Rest, [...] week if symptoms persist. documented in this encounterMercy Health Lorain Hospital05-07-2024 History of Present illness Narrative* Jodi Gamino RT(R) - 07/22/2023 4:30 PM EDT [...] PATIENT PRESENTS WITH AN IMPLANTABLE OR ATTACHED REGISTERED DENTAL HYGIENIST: No RADIOLOGY DEPARTMENT: General X-ray: Exam(s) Completed: Lower Extremity X- Ray(s): Knee, AP / Lat / Tunne / Merchant Bilateral and Wt. Bearing PERIPHERAL IV DATA: Not applicable SIGNED BY: RT Marlyn(R) July 22, 2023 4:41 PM documented in this encounterMercy Health Lorain Hospital05-07-2024 History of Present illness Narrative* Whit Demarco PA - 07/22/2023 4:27 PM EDT This note was created using Float: Milwaukeeriter. 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 Charlton) Cataracts, both eyes Coronary atherosclerosis of unspecified type of vessel, [place] or graft minimal plaque on cath 08/06/2006 DVT (deep venous thrombosis) ([facility]) 2010 Right leg OCTOBER 2009 NOT TREATED Dysmetabolic syndrome X Esophageal reflux Fibromyalgia better with Lyrica Floppy eyelid syndrome Hiatal hernia Large when seen on EGD 10/2010 at [facility] (Dr. Chavarria) Irritable bowel syndrome Obesity Osteoarthritis [...] [Aspirin-Dipyridamole], Bactrim [Sulfamethoxazole- Trimethoprim], Betadine [Povidone-Iodine], Cetacaine [Dusczkzc-Zrlqjxhuyh-Vsnekjtozr], Cigarette Smoke, Codeine, Cortisone, Depo- Medrol [Methylprednisolone], [...] ER evaluation. LEONEL Cerda documented in this encounterMercy Health Lor[facility] Hospital04-22-2024 Telephone encounter Note * Telephone Encounter - Jeanna Hoover MA - 07/07/2023 8:43 AM EDT Fax received for PA approval Jeanna Hoover MA [facility]04-22-2024 Miscellaneous Notes* Telephone Encounter - Jeanna Hoover MA - 07/07/2023 8:43 AM EDT Fax received for PA approval Jeanna Hoover MA * Telephone Encounter - Ama Vang LPN - 07/04/2023 12:09 PM EDT Electronic PA rec'd and completed for lidocaine 5% patches. documented in this encounterMercy Health Lorain Hospital04-19-2024 Telephone encounter Note * Telephone Encounter - Ama Vang LPN - 07/04/2023 12:09 PM EDT Electronic PA rec'd and completed for lidocaine 5% patches. [facility]04-19-2024 Instructions* Patient Instructions* Norman Garcia APRN.CHAINMAN - 07/04/2023 11:14 AM EDT Keep follow up but return sooner if pain persistent/not improving. Follow up with pain management. Can do heat or ice to the area. Rest as able. Start the medrol dose pack to help reduce inflammation. You can also take the muscle relaxer as needed. Can try lidocaine patches too. documented in this encounterMercy Health Lorain Hospital04-19-2024 History of Present illness Narrative* Norman Garcia APRN.DARYL - 07/04/2023 10:49 AM EDT SUBJECTIVE Keshia [...] a fall. She was seen in the [facility] ER 06/18. She is using a walker. [...] mandibular pain, lymphadenopathy, possible angio edema per [facility] ER note 04/24/2022 Meclizine Swelling URINARY RETENTION,FACE [...] (D priority) Comment: 06/30/2011 PMH of hypothyroidism, FLOORING PROFESSIONAL meds synthroid 50mcg. Free T3 2.6. Plan: - Synthroid 50 mcg po at home . 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 Davon Infante ([facility]) Cough - 07/11/2019 Comment: Reviewed that had stress test and was referred to motion designer for further evaluation of cough. Bilateral Leg [...] Esophagus Without Dysplasia Comment: 11/02/12 EGD at [facility] (Dr. Charlton) Dysphagia - 02/05/2012 Obesity [...] medications.. Norman Garcia APRN-DARYL documented in this encounterMercy Health Lor[facility] Hospital04-19-2024 Miscellaneous Notes* Telephone Encounter - Maribel Brown RN - 07/04/2023 8:48 AM EDT Appointment rescheduled for today with different provider. Maribel Brown RN documented in this encounterMercy Health Lorain Hospital02-13-2024 Miscellaneous Notes* Telephone Encounter - Arleen Hamm LPN - 04/29/2023 10:50 AM EST TC to Keshia, advised that Diazepam (Valium) RX was sent to [facility], 04/27/2023. Patient will check with pharmacy. Arleen Hamm LPN documented in this encounterMercy Health Lor[facility] Hospital02-07-[address] [facility]02-07-[address] [facility]02-07-[address] [facility]02-07-[address] [facility]12-11-2023 Miscellaneous Notes* Telephone Encounter - Rea Soni [...] she gets her blood drawn Fri or , the results should be done by Friday. * Telephone Encounter - Jessica Saini LPN - 02/17/2023 8:19 AM EST Pt has an appt on 02/21 with provider for a 6 month f/u. Pt is asking if she needs any labs done before appt. Please review. Call pt with provider message. Jessica Saini LPN documented in this encounterMercy Health Lorain Hospital12-08-2023 Miscellaneous Notes* Addendum Note - Juan Rodriguez APRN.CNS - 02/21/2023 2:55 PM ESTAddended by: JUAN RODRIGUEZ on: 02/21/2023 02:55 PM Modules accepted: Orders documented in this encounterMercy Health Lorain Hospital12-08-2023 History of Present illness Narrative* Juan Rodriguez APRN.CNS - 02/21/2023 2:00 PM EST SUBJECTIVE: RSV Vaccine(1 - 1-dose 60+ series) Never done DTaP,Tdap,Td Vaccine(1 - Tdap) due on 11/19/2019 Influenza Vaccine(1) due on 11/15/2022 Covid-19 Vaccine( season) due on 11/15/2022 HPI Keshia Rojas [...] health. She was seen by Dr. Casper manager disaster recovery September and October 2022 for abdominal pain and Sarmiento'sesophagus. Has follow up visit this month. She was seen by [place] [facility] Ellen Estrella CMP January 31, 2023 for follow-up . Will complete a Holter for dizziness. She has cataract surgery 2022. Dr Aquino doing surgery. She notes leg pain and swelling at work. Wearing compression socks and taking gabapentin which are helping somewhat. She notes seeing Dr. 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 Charlton) Cataracts, both eyes Coronary atherosclerosis of unspecified type of vessel, [place] or graft minimal plaque on cath 08/06/2006 DVT (deep venous thrombosis) (HCC) 2010 Right leg OCTOBER 2009 NOT TREATED Dysmetabolic syndrome X Esophageal reflux Fibromyalgia better with Lyrica Floppy eyelid syndrome Hiatal hernia Large when seen on EGD 10/2010 at [facility] (Dr. Chavarria) Irritable bowel syndrome Obesity Osteoarthritis [...] Abs Lymph 1.00 - 4.00 k/uL 2.95 Dinwiddie% % 10.2 Abs Dinwiddie <0.87 k/uL 0.93 (H) Eosin% % 8.0 [...] YR, HIGH DOSE, QUADRIVALENT (FLUZONE HIGH-DOSE) - [employer] COVID-19 VACCINE (2022- SEASON) AGE 12+ YR 6 mo follow up MD Juan Lerma, ELECTRONIC CALIBRATION TECHNICIAN.JEWEL SORTER 3. Encounter for immunization - ICD9: V03.89, ICD10: Z23 - TDAP VACCINE, AGE 7+ YR (ADACEL, BOOSTRIX) 4. History of total adrenalectomy (HCC) - ICD9: V45.79, ICD10: E89.6 Stable, currently controlled, continue to monitor. Juan Rodriguez APRN.JEWEL SORTER Medical Decision Making: Problems: Moderate: 2+ stable chronic illnesses Data: Unique test(s) ordered: 3+ Risk: Moderate: Drug management Medical Decision Making Level: 4 - Moderate documented in this encounterMercy Health [facility]11-29-2023 Miscellaneous Notes* Telephone Encounter - Paulo [...] - 02/12/2023 9:58 AM EST Patient reports [facility] tells her, her gabapentin refill is stuck in [place]. Pharmacy advised patient to ask pcp to send short supply to local pharmacy, a 10 day supply. Pended for LIANA Menard, per patient request. Patient reports she is out of medication. documented in this encounterMercy Health [facility] Hospital08-28-2023 Miscellaneous Notes* Telephone Encounter - Hillary [...] we wouldbe able to get them from [facility]. I let her know we have a lot of labs in that had been ordered by Dr Casper. She states Dr Casper told her she she had an infection. documented in this encounterMercy Health [facility] Hospital08-12-2023 Miscellaneous Notes* Telephone Encounter - Paulo [...] advise. Brayan Larson LPN documented in this encounterMercy Health Lor[facility] Hospital07-06-2023 History of Present illness Narrative* Ryan [...] mandibular pain, lymphadenopathy, possible angio edema per [facility] ER note 04/24/2022 Meclizine Swelling URINARY RETENTION,FACE [...] (1.5cm to 0.5cm) distributed from the right yarsani to below the right lip. Tiny ulceration [...] POWDER Ryan Chicas MD documented in this encounterMercy Health [facility] Hospital07-05-2023 Miscellaneous Notes* Telephone Encounter - America [...] you. America Angel LPN documented in this encounterMercy Health Lor[facility] Hospital07-03-2023 Miscellaneous Notes* Letter - Mammography Coordinator - 09/16/2022 8:29 AM EDT September 16, 2022 PID: [id number] Keshia Rojas [address] [place] [id number] Dear Ms. Rojas, We are pleased to [...] report will be kept on [facility] at [facility] as part of your permanent medical record and are available for your continuing care. Thank you for allowing us to help in meeting your health care needs. Sincerely, Dr. Tracy Interpreting Radiologist [facility] (Normal over 40) documented in this encounterMercy Health [facility] Hospital06-30-2023 History of Present illness Narrative* Bethany Crow RT(R) - 09/13/2022 1:10 PM EDT Radiology [...] IV DATA: Not applicable SIGNED BY: RT Stephania(Kerri) September 13, 2022 1:02 PM documented in this encounterMercy Health [facility] Hospital06-28-2023 Miscellaneous Notes* Telephone Encounter - Erika Polk LPN - 09/11/2022 8:15 AM EDT Records show valid rx at the pharmacy. .me documented in this encounterMercy Health [facility]06-06-2023 Miscellaneous Notes* Telephone Encounter - Norman Garcia APRN.DARYL - 08/20/2022 2:22 PM EDT Script sent. * Telephone Encounter - Shae Palencia RN - 08/19/2022 11:31 AM EDT Patient calls and reports that she is not happy with [facility] services and is changing pharmacies to [facility]. Shae Palencia, RN * Telephone Encounter - Reshma Carson LPN - 08/19/2022 11:07 AM EDT Attempted to reach patient to ask as to why switch is needed with no answer and unable to leave a message. * Telephone Encounter - Madison Torres Pss - 08/19/2022 10:57 AM EDT Patient needs her Valium rx switched to [facility] in [place]. Refill date is tomorrow, 08/19/22. documented in this encounterMercy Health [facility] Hospital05-16-2023 Miscellaneous Notes* Telephone Encounter - Arleen [...] you. Arleen Hamm LPN documented in this encounterMercy Health [facility] Hospital03-11-2023 Miscellaneous Notes* Telephone Encounter - Hillary [...] Requesting a short supply to go to [facility] and 90 day supply to [facility] mail away. * Telephone Encounter - Norman Garcia APRN.CNP - 05/24/2022 4:00 PM EST Please let [...] was 146/90. PT also coming to the [facility] and checks bp. Patient notes that bp [...] 05/22/2022 3:29 PM EST VANNESA Alexis @ [facility] calling to let provider know patient discharged by OT today. Her BP was 144/96 P 77 prior to therapy. No re-check done. Tricia Crockett, RN documented in this encounterMercy Health [facility] Hospital03-08-2023 Miscellaneous Notes* Telephone Encounter - Norman Garcia APRN.DARYL - 05/22/2022 9:33 AM EST [facility] website checked and validated. All prescriptions have [...] advise. Reshma Carson LPN documented in this encounterMercy Health [facility] Hospital03-03-2023 History of Present illness Narrative* Paulo Scott MD - 05/17/2022 3:43 PM EST This note was created using Float: Milwaukeeriter. Subjective Keshia Rojas is a 72 year old female. Patient presents with: Established Patient: Follow up BLE weakness and pain SUBJECTIVE: Keshia Rojas is a 72 year old year old lady here today for hospital follow up appointment for review of medical conditions. States that had pain in legs with exacerbation of swelling despite wearing support hose. [place] like someone was punching her in back of her calves. Had to have the stockings taken off since was contributing to the pain. Eyes rolled in back of her head. 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 Charlton) Cataracts, both eyes Coronary atherosclerosis of unspecified type of vessel, [place] or graft minimal plaque on cath 08/06/2006 DVT (deep venous thrombosis) ([facility]) 2010 Right leg OCTOBER 2009 NOT TREATED Dysmetabolic syndrome X Esophageal reflux Fibromyalgia better with Lyrica Floppy eyelid syndrome Hiatal hernia Large when seen on EGD 10/2010 at [facility] (Dr. Chavarria) Irritable bowel syndrome Obesity Osteoarthritis [...] sleep. Paulo Scott MD documented in this encounterMercy Health [facility]02-23-2023 Miscellaneous Notes* Telephone Encounter - Adalgisa Alston BELEN - 05/09/2022 1:31 PM EST Attempted to contact Vanesa [phone] but no answer. Left providers message and ask to call officewith any questions or concerns. * Telephone Encounter - Juan Rodriguez APRN.CNS - 05/09/2022 12:53 PM EST BP ok if had not taken medication. Check at next visit and let us know if not remaining in control. We do not have information about 05/05 visit for leg pain, would need records for review. OK for SW. * Telephone Encounter - Erika Polk LPN - 05/09/2022 10:09 AM EST Vanesa with [facility], OT calling with the followin)plan of care [...] and pain. 3)Requesting verbal order for social sciences professor to come in for emotional support.If calling with verbalorder approval -today please call Vanesa [phone] okay to leave a message -calling with verbal order tomorrow call Shelia [phone] okay to leave a message. Erika Polk LPN documented in this encounterMercy Health [facility]02-21-2023 Miscellaneous Notes* Telephone Encounter - Juan Rodriguez APRN.CNS - 05/07/2022 4:43 PM EST Noted, OK * Telephone Encounter - Erika Polk LPN - 05/07/2022 4:22 PM EST Norma with [facility], PT called with a plan of care for pt. They will be seenign pt 2 times a week for 3 weeks for lower extremities strengthening, gait and training, balance and endurance. No call back needed Erika Polk LPN documented in this encounterMercy Health [facility]02-20-[address] Campos [facility] May 06, 2022 12:05pm Note Date/Time May 06, 2022 12:03pm [facility] Medical Records Department [address] [place] [id number] Discharge Summary 05/06/22 1156 MR#: [id number] Acct: [id number] Name: KESHIA ROJAS Rep #:[id number] : 1950 72 From: Shelia Campos DO PCP: Dr. Paulo Scott MD Status:HOLLIS TRAMMELL [facility] Prov[facility] Date of Admission: 05/05/22 Date of [...] % (Auto) 65.4, Lymph % (Auto) 21.7, Dinwiddie % (Auto) 6.9, Eos % (Auto) 4.8, [...] Clarity Clear, Urine pH 6.0, Ur Specific Sibley 1.010, Urine Protein Negative, Urine Glucose (UA) [...] 37.9 L, Lymph % (Auto) 42.9 H, [place]ie % (Auto) 9.0, Eos % (Auto) 9.0 [...] Health Service Charges/Coding Visit Charges Inpatient E&M: 90109 Disch Hosp 05/06/22 1201 <Electronically signed by Shelia Campos DO> Cosigner Signature (if applicable): CC: Dr. Shelia Campos DO; Dr. Paulo Scott MD~ Signed [facility] Work Phone: 1(507) 878-158402-19-2023 History and physical note Author Dr. Bernabe [facility] May 05, 2022 9:18pm Note Date/Time May 05, 2022 5:50pm [facility] Medical Records Department [address] [place] [id number] H&P Exam - Hospitalist 05/05/22 1750 MR#: [id number] Acct: [id number] Name: KESHIA ROJAS Rep #:[id number] : 1950 72 From: Yuridia Bernabe MD PCP: Dr. Paulo Scott MD Status:HOLLIS TRAMMELL Location: [facility] [id number] HPI - General General Date of Admission: [...] X-rays of both knees show degenerative changes. [facility] Medical History Anemia Arthritis Atherosclerotic heart disease of [place] coronary artery without angina pectoris Barretts esophagus [...] % (Auto) 65.4, Lymph % (Auto) 21.7, [place]ie % (Auto) 6.9, Eos % (Auto) 4.8, [...] Clarity Clear, Urine pH 6.0, Ur Specific Sibley 1.010, Urine Protein Negative, Urine Glucose (UA) [...] at the bedside. Visit Charges Inpatient E&M: 70998 Init Hosp L3 05/05/222117 <Electronically signed by Yuridia Bernabe MD> Cosigner Signature (if applicable): CC: Dr. Yuridia Bernabe MD; Dr. Paulo Scott MD~ Signed [facility] Work Phone: 1(578) 342-868302-19-2023 Discharge summary Author La Nena Collazo [facility] May 05, 2022 5:48pm Note Date/Time May 05, 2022 1:22pm [facility] Medical Records Department [address] [place] [id number] Emergency Department Summary 05/05/22 MR#: [id number] Acct: [id number] Name: KESHIA ROJAS Rep #:[id number] : 1950 72 From: La Nena CASTANEDA PCP: Dr. Paulo Scott MD Status:RE G ER Location: ED HPI <LEONEL Rachel - Last Filed: 05/05/22 17:48> History of Present Illness Chief Complaint: Dizziness Narrative Narrative: 72-year-old female with PMH of HTN, hypothyroidism presents with bilateral lowerextremity pain and lightheadedness. She started her shift at [employer] around 8AM and felt fine. About 2 [...] lisinopril was discontinued and she started Norvasc. [facility] <LEONEL Rachel - Last Filed: 05/05/22 17:48> [facility] Medical History Anemia Arthritis Atherosclerotic heart disease of [place] coronary artery without angina pectoris Barretts esophagus [...] obtaining)] 96 Pulse Ox Oxygen Delivery Method [facility] <LEONEL Rachel - Last Filed: 05/05/22 17:48> [facility] Narrative Medical decision making narrative: [...] % (Auto) 65.4 Lymph % (Auto) 21.7 Dinw[place]ie % (Auto) 6.9 Eos % (Auto) 4.8 [...] Clarity Clear Urine pH 6.0 Ur Specific Sibley 1.010 Urine Protein Negative Urine Glucose (UA) [...] (Auto) Neut % (Auto) Lymph % (Auto) [place] % (Auto) Eos % (Auto) Baso % (Auto) Absolute Neuts (auto) Absolute Lymphs (auto) Nucleated RBC % Sodium Potassium Chloride Carbon Dioxide Anion Gap BUN Creatinine Estim Creat Clear Calc Est GFR (MDRD) Af Amer Est GFR (MDRD) Non-Af BUN/Creatinine Ratio Glucose Calcium Total Creatine Kinase 186 Troponin I High Sens 4 Urine Color Urine Clarity Urine pH Ur Specific Sibley Urine Protein Urine Glucose (UA) Urine Ketones [...] fracture or dislocation, mild arthritis. <Dr. Ellie Mullins DO - Last Filed: 05/05/22 16:15> [facility] Lab Data Attestation: I reviewed the patient's lab results. Lab results narrative: I have personally performed a face to face assessment of the patient and have reviewed the EULALIA Note. I performed a substantive portion of the visit including all aspects of the following. My sy findings include: History is [patient seen in conjunction with physician housekeeper and laundry assistant. Patient presented to the emergency department with [...] % (Auto) 65.4 Lymph % (Auto) 21.7 [place] % (Auto) 6.9 Eos % (Auto) 4.8 [...] Clarity Clear Urine pH 6.0 Ur Specific Sibley 1.010 Urine Protein Negative Urine Glucose (UA) [...] (Auto) Neut % (Auto) Lymph % (Auto) [place] % (Auto) Eos % (Auto) Baso % (Auto) Absolute Neuts (auto) Absolute Lymphs (auto) Nucleated RBC % Sodium Potassium Chloride Carbon Dioxide Anion Gap BUN Creatinine Estim Creat Clear Calc Est GFR (MDRD) Af Amer Est GFR (MDRD) Non-Af BUN/Creatinine Ratio Glucose Calcium Total Creatine Kinase 186 Troponin I High Sens 4 Urine Color Urine Clarity Urine pH Ur Specific Sibley Urine Protein Urine Glucose (UA) Urine Ketones [...] in walking, Dizziness Disposition Disposition: Acute Care [facility] What to do if you have Problems For any increased pain, shortness of breath, bleeding, nausea or vomiting, chest pain, or any unexpected problems, contact your Primary Care Provider. Call [facility] ([phone]) or report to the closest Emergency Room. Call 911 if necessary. 05/05/22 1748 <Electronically signed by La Nena CASTANEDA> Cosigner Signature (if applicable): 05/05/22 1648 <Electronically signed by Ellie Mullins DO> CC: Dr. Paulo Scott MD ~ Signed [facility] Work Phone: 1(536) 648-283002-19-2023 Discharge summary Author La Nena Collazo [facility] May 05, 2022 5:48pm Note Date/Time May 05, 2022 1:22pm [facility] Medical Records Department [address] [place] [address] Emergency Department Summary 05/05/22 MR#: [id number] Acct: [id number] Name: KESHIA ROJAS Rep #:[id number] : 1950 72 From: La Nena CSATANEDA PCP: Dr. Paulo Scott MD Status:RE G ER Location: ED HPI <LEONEL Rachel - Last Filed: 05/05/22 17:48> History of Present Illness Chief Complaint: Dizziness Narrative Narrative: 72-year-old female with PMH of HTN, hypothyroidism presents with bilateral lowerextremity pain and lightheadedness. She started her shift at [employer] around 8AM and felt fine. About 2 [...] <LEONEL Rachel - Last Filed: 05/05/22 17:48> [facility] Medical History Anemia Arthritis Atherosclerotic heart disease of [place] coronary artery without angina pectoris Barretts esophagus [...] obtaining)] 96 Pulse Ox Oxygen Delivery Method [facility] <LEONEL Rachel - Last Filed: 05/05/22 17:48> [facility] Narrative Medical decision making narrative: [...] % (Auto) 65.4 Lymph % (Auto) 21.7 [place] % (Auto) 6.9 Eos % (Auto) 4.8 [...] Clarity Clear Urine pH 6.0 Ur Specific Sibley 1.010 Urine Protein Negative Urine Glucose (UA) [...] (Auto) Neut % (Auto) Lymph % (Auto) [place] % (Auto) Eos % (Auto) Baso % (Auto) Absolute Neuts (auto) Absolute Lymphs (auto) Nucleated RBC % Sodium Potassium Chloride Carbon Dioxide Anion Gap BUN Creatinine Estim Creat Clear Calc Est GFR (MDRD) Af Amer Est GFR (MDRD) Non-Af BUN/Creatinine Ratio Glucose Calcium Total Creatine Kinase 186 Troponin I High Sens 4 Urine Color Urine Clarity Urine pH Ur Specific S[place]y Urine Protein Urine Glucose (UA) Urine Ketones [...] or dislocation, mild arthritis. <Dr. Ellie Mullins, DO - Last Filed: 05/05/22 16:15> [facility] Lab Data Attestation: I reviewed the patient's lab results. Lab results narrative: I have personally performed a face to face assessment of the patient and have reviewed the EULALIA Note. I performed a substantive portion of the visit including all aspects of the following. My sy findings include: History is [patient seen in conjunction with physician housekeeper and laundry assistant. Patient presented to the emergency department with [...] % (Auto) 65.4 Lymph % (Auto) 21.7 [place] % (Auto) 6.9 Eos % (Auto) 4.8 [...] Clarity Clear Urine pH 6.0 Ur Specific Sibley 1.010 Urine Protein Negative Urine Glucose (UA) [...] (Auto) Neut % (Auto) Lymph % (Auto) [place] % (Auto) Eos % (Auto) Baso % (Auto) Absolute Neuts (auto) Absolute Lymphs (auto) Nucleated RBC % Sodium Potassium Chloride Carbon Dioxide Anion Gap BUN Creatinine Estim Creat Clear Calc Est GFR (MDRD) Af Amer Est GFR (MDRD) Non-Af BUN/Creatinine Ratio Glucose Calcium Total Creatine Kinase 186 Troponin I High Sens 4 Urine Color Urine Clarity Urine pH Ur Specific S[place]y Urine Protein Urine Glucose (UA) Urine Ketones [...] walking, Dizziness Disposition Disposition: Acute Care Hospital [facility] What to do if you have Problems For any increased pain, shortness of breath, bleeding, nausea or vomiting, chest pain, or any unexpected problems, contact your Primary Care Provider. Call [facility] ([phone]) or report to the closest Emergency Room. Call 911 if necessary. 05/05/22 1748 <Electronically signed by La Nena CASTANEDA> Cosigner Signature (if applicable): 05/05/22 1648 <Electronically signed by Ellie Mullins DO> CC: Dr. Paulo Scott MD ~ Signed [facility] Work Phone: [phone]) 900-951602-10-2023 Instructions* Patient Instructions* Juan Rodriguez APRN.CNS - 04/26/2022 9:57 AM EST Stop taking lisinopril Start taking amlodipine 2.5 mg daily documented in this encounterMer[facility]02-10-2023 History of Present illness Narrative* Juan [...] to emergency department. 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 Charlton) Cataracts, both eyes Coronary atherosclerosis of unspecified type of vessel, [place] or graft minimal plaque on cath 08/06/2006 DVT (deep venous thrombosis) (HCC) 2010 Right leg OCTOBER 2009 NOT TREATED Dysmetabolic syndrome X Esophageal reflux Fibromyalgia better with Lyrica Floppy eyelid syndrome Hiatal hernia Large when seen on EGD 10/2010 at [facility] (Dr. Chavarria) Irritable bowel syndrome Obesity Osteoarthritis [...] Level: 4 - Moderate documented in this encounterMercy Health Lor[facility] Hospital02-08-[address] Alatorre [facility] April 24, 2022 8:33pm Note Date/Time April 24, 2022 4 :51pm [facility] Medical Records Department [address] [place] [id number] Emergency Department Summary 04/24/22 MR#: [id number] Acct: [id number] Name: KESHIA ROJAS Rep #:[id number] : [...] does. He does not appreciate any swelling. [facility] Medical History Anemia Arthritis Atherosclerotic heart disease of [place] coronary artery without angina pectoris Barretts esophagus [...] % (Auto) 49.5 Lymph % (Auto) 34.8 [place] % (Auto) 7.7 Eos % (Auto) 6.8 [...] your Primary Care Provider. Call [facility] ([phone]) or report to the closest Emergency Room. Call 911 if necessary. 04/24/222032 <Electronically signed by Rajinder Alatorre DO> Cosigner Signature (if applicable): CC: Dr. Paulo Scott MD ~ Signed [facility] Work Phone: [phone]) 606-715102-08-2023 Miscellaneous Notes* Telephone Encounter - Norman Garcia [...] 9. OTHER SYMPTOMS: Denies Protocols used: Face [id number] documented in this encounterMercy Health Lor[facility] Hospital12-12-2022 Miscellaneous Notes* Telephone Encounter - Norman [...] advise, Nataly Krueger RN documented in this encounterMercy Health Lor[facility] Hospital12-06-2022 Miscellaneous Notes* Telephone Encounter - Norman Garcia APRN.CNP - 02/19/2022 9:56 AM EST PDMP website checked and validated. All prescriptions have been APPROPRIATELY filled. No suspiciousactivity was identified. 02/19/2022 by Norman Garcia APRN.CHAINMAN * Telephone Encounter - Arleen Hamm LPN [...] you. Arleen Hamm LPN documented in this encounterMercy Health Lor[facility] Hospital08-19-2022 Miscellaneous Notes* Telephone Encounter - Paulo [...] notify patient. Charo Salazar documented in this encounterMercy Health Lorain Hospital07-21-2022 Miscellaneous Notes* Telephone Encounter - Adalgisa Alston LPN - 10/04/2021 2:27 PM EDT Providers message was sent to patient on [employer] as requested. * Telephone Encounter - Juan [...] My Chart. Thank you. documented in this encounterMercy Health Lorain Hospital06-20-2022 Miscellaneous Notes* Telephone Encounter - Jessica [...] her provider [facility] and she would need to pay out of pocket. Please send 90 day supply to [facility] levothyroxine (SYNTHROID) 88 mcg tablet 90 tablet 3 08/23/2021 Sig: Take 1 tablet by mouth once daily. Take on empty stomach. For Thyroid Sent to pharmacy as: levothyroxine (SYNTHROID) 88 mcg tablet Class: Normal documented in this encounterMercy Health Lorain Hospital06-09-2022 History of Present illness Narrative* Paulo Scott MD - 08/23/2021 5:22 PM EDT This note was created using Float: [place]iter. Subjective Keshia Rojas is a 71 year [...] since had GB out. Considering seeing DrShabnam Casper. 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 Charlton) Cataracts, both eyes Coronary atherosclerosis of unspecified type of vessel, [place] or graft minimal plaque on cath 08/06/2006 DVT (deep venous thrombosis) (HCC) 2010 Right leg OCTOBER 2009 NOT TREATED Dysmetabolic syndrome X Esophageal reflux Fibromyalgia better with Lyrica Floppy eyelid syndrome Hiatal hernia Large when seen on EGD 10/2010 at [facility] (Dr. Chavarria) Irritable bowel syndrome Obesity Osteoarthritis [...] Take 400 Units by mouth once daily. [facility] as directed. white petrolatum 94% - mineral oil 3% 94-3 % oint Dr. Lynne [facility] acetaminophen (TYLENOL) 325 mg tablet Take 650 mg by mouth every 6 hours as needed. Tylenol arthritis COMPOUNDED PRESCRIPTION Saunemin Antiseptic Powder (carbolic acid; zinc oxide) as [...] vertigo. Paulo Scott MD documented in this encounterMercy Health Lor[facility] Hospital10-01-2021 History of Present illness Narrative* Jodi Gamino, RT(R) - 12/15/2020 12:30 PM EDT Radiology [...] IV DATA: Not applicable SIGNED BY: RT Marlyn(R) December 15, 2020 12:22 PM documented in this encounterMercy Health Lorain Hospital06-16-2021 History of Present illness Narrative* Eleuterio Moy RT(R) - 08/30/2020 1:40 PM EDT Radiology Service [...] IV DATA: Not applicable SIGNED BY: RT Madiha(R) August 30, 2020 1:41 PM documented in this encounterMercy Health Lor[facility] Hospital04-27-2021 History of Present illness Narrative* Kalli [...] 11, 2020 1:13 PM documented in this encounterMercy Health Lor[facility] Hospital04-11-2012 History of Past illness Narrative* Problem Noted Date Resolved Date Discharge planning 06/26/2011 09/03/2011 Overview: 06/30/2011 Pt is and lives in [place], [place] At this time, we anticipate that the patient will be discharged home. Patient is in SNF after suffering a stroke. Patient requests home care for a home visit. Plan: - Per social work: Friends in [facility] can assist. SW provided contact [...] 12/28/2016 Overview: 06/30/2011 TIA x2 2005, 2008. [employer] meds: ASA 81mg Plan: - resume ASA for homegoing . 1) Laparotomy 2) Joann almita roplasty 3) Wedge the gastric fundus 4) Robbie fundoplication 06/30/2011 Overview: 06/29/2011 - No c/o reflux post op. Slight nausea w/ some PO's (chicken broth, took others w/o complaint) [employer] meds: nexium 40mg daily plan: - pepcid IV changed to PO while in house - resume nexium at discharge. documented as of this encounter (statuses as of 08/27/2021) [facility]04-11-2012 History of Past illness Narrative* Problem Noted Date Resolved Date Discharge planning 06/26/2011 09/03/2011 Overview: 06/30/2011 Pt is and lives in [place], [place] At this time, we anticipate that the patient will be discharged home. Patient is in SNF after suffering a stroke. Patient requests home care for a home visit. Plan: - Per social work: Friends in [facility] can assist. SW provided contact [...] 12/28/2016 Overview: 06/30/2011 TIA x2 2005, 2008. [employer] meds: ASA 81mg Plan: - resume ASA for homegoing . 1) Laparotomy 2) Joann almita roplasty 3) Wedge the gastric fundus 4) Robbie fundoplication 06/30/2011 Overview: 06/29/2011 - No c/o reflux post op. Slight nausea w/ some PO's (chicken broth, took others w/o complaint) [employer] meds: nexium 40mg daily plan: - pepcid IV changed to PO while in house - resume nexium at discharge. documented as of this encounter (statuses as of 09/03/2021) [facility]04-11-[facility] History of Past illness Narrative* Problem Noted Date Resolved Date Discharge planning 06/26/2011 09/03/2011 Overview: 06/30/2011 Pt is and lives in [place], [place] At this time, we anticipate that the patient will be discharged home. Patient is in SNF after suffering a stroke. Patient requests home care for a home visit. Plan: - Per social work: Friends in [facility] can assist. SW provided contact [...] 12/28/2016 Overview: 06/30/2011 TIA x2 2005, 2008. [employer] meds: ASA 81mg Plan: - resume ASA for homegoing . 1) Laparotomy 2) Joann almita roplasty 3) Wedge the gastric fundus 4) Robbie fundoplication 06/30/2011 Overview: 06/29/2011 - No c/o reflux post op. Slight nausea w/ some PO's (chicken broth, took others w/o complaint) [employer] meds: nexium 40mg daily plan: - pepcid IV changed to PO while in house - resume nexium at discharge. documented as of this encounter (statuses as of 10/04/2021) [facility]04[facility] of Past illness Narrative* Problem Noted Date Resolved Date Discharge planning 06/26/2011 09/03/2011 Overview: 06/30/2011 Pt is and lives in [place] At this time, we anticipate that the patient will be discharged home. Patient is in SNF after suffering a stroke. Patient requests home care for a home visit. Plan: - Per social work: Friends in [facility] can assist. SW provided contact [...] 12/28/2016 Overview: 06/30/2011 TIA x2 2005, 2008. [employer] meds: ASA 81mg Plan: - resume ASA for homegoing . 1) Laparotomy 2) Joann almita roplasty 3) Wedge the gastric fundus 4) Robbie fundoplication 06/30/2011 Overview: 06/29/2011 - No c/o reflux post op. Slight nausea w/ some PO's (chicken broth, took others w/o complaint) [employer] meds: nexium 40mg daily plan: - pepcid IV changed to PO while in house - resume nexium at discharge. documented as of this encounter (statuses as of 10/20/2021) [facility]04[facility] of Past illness Narrative* Problem Noted Date Resolved Date Discharge planning 06/26/2011 09/03/2011 Overview: 06/30/2011 Pt is and lives in [place] At this time, we anticipate that [...] 12/28/2016 Overview: 06/30/2011 TIA x2 2005, 2008. [employer] meds: ASA 81mg Plan: - resume ASA for homegoing . 1) Laparotomy 2) Joann almita roplasty 3) Wedge the gastric fundus 4) Robbie fundoplication 06/30/2011 Overview: 06/29/2011 - No c/o reflux post op. Slight nausea w/ some PO's (chicken broth, took others w/o complaint) [employer] meds: nexium 40mg daily plan: - pepcid IV changed to PO while in house - resume nexium at discharge. documented as of this encounter (statuses as of 11/02/2021) [facility] of Past illness Narrative* Problem Noted Date Resolved Date Discharge planning 06/26/2011 09/03/2011 Overview: 06/30/2011 Pt is and lives in [place], [place] At this time, we anticipate that the patient will be discharged home. Patient is in SNF after suffering a stroke. Patient requests home care for a home visit. Plan: - Per social work: Friends in [facility] can assist. SW provided contact info for [employer] to call when pt returns home [...] 12/28/2016 Overview: 06/30/2011 TIA x2 2005, 2008. [employer] meds: ASA 81mg Plan: - resume ASA for homegoing . 1) Laparotomy 2) Joann almita roplasty 3) Wedge the gastric fundus 4) Robbie fundoplication 06/30/2011 Overview: 06/29/2011 - No c/o reflux post op. Slight nausea w/ some PO's (chicken broth, took others w/o complaint) [employer] meds: nexium 40mg daily plan: - pepcid IV changed to PO while in house - resume nexium at discharge. documented as of this encounter (statuses as of 12/07/2021) [facility] of Past illness Narrative* Problem Noted Date Resolved Date Discharge planning 06/26/2011 09/03/2011 Overview: 06/30/2011 Pt is and lives in [place], [place] At this time, we anticipate that the patient will be discharged home. Patient is in SNF after suffering a stroke. Patient requests home care for a home visit. Plan: - Per social work: Friends in [facility] can assist. SW provided contact [...] 12/28/2016 Overview: 06/30/2011 TIA x2 2005, 2008. [employer] meds: ASA 81mg Plan: - resume ASA for homegoing . 1) Laparotomy 2) Joann almita roplasty 3) Wedge the gastric fundus 4) Robbie fundoplication 06/30/2011 Overview: 06/29/2011 - No c/o reflux post op. Slight nausea w/ some PO's (chicken broth, took others w/o complaint) [employer] meds: nexium 40mg daily plan: - pepcid IV changed to PO while in house - resume nexium at discharge. documented as of this encounter (statuses as of 02/19/2022) [facility] of Past illness Narrative* Problem Noted Date Resolved Date Discharge planning 06/26/2011 09/03/2011 Overview: 06/30/2011 Pt is and lives in [place], [place] At this time, we anticipate that the patient will be discharged home. Patient is in SNF after suffering a stroke. Patient requests home care for a home visit. Plan: - Per social work: Friends in [place] can assist. SW provided contact info for this [employer] to call when pt returns home if [...] 12/28/2016 Overview: 06/30/2011 TIA x2 2005, 2008. [employer] meds: ASA 81mg Plan: - resume ASA for homegoing . 1) Laparotomy 2) Joann almita roplasty 3) Wedge the gastric fundus 4) Robbie fundoplication 06/30/2011 Overview: 06/29/2011 - No c/o reflux post op. Slight nausea w/ some PO's (chicken broth, took others w/o complaint) [employer] meds: nexium 40mg daily plan: - pepcid IV changed to PO while in house - resume nexium at discharge. documented as of this encounter (statuses as of 02/25/2022) [facility] Narrative* Problem Noted Date Resolved Date Discharge planning 06/26/2011 09/03/2011 Overview: 06/30/2011 Pt is and lives in [place] At this time, we anticipate that the patient will be discharged home. Patient is in SNF after suffering a stroke. Patient requests home care for a home visit. Plan: - Per social work: Friends in [facility] can assist. SW provided contact [...] 12/28/2016 Overview: 06/30/2011 TIA x2 2005, 2008. [employer] meds: ASA 81mg Plan: - resume ASA for homegoing . 1) Laparotomy 2) Joann almita roplasty 3) Wedge the gastric fundus 4) Robbie fundoplication 06/30/2011 Overview: 06/29/2011 - No c/o reflux post op. Slight nausea w/ some PO's (chicken broth, took others w/o complaint) [employer] meds: nexium 40mg daily plan: - pepcid IV changed to PO while in house - resume nexium at discharge. documented as of this encounter (statuses as of 03/21/2022) [facility] Narrative* Problem Noted Date Resolved Date Discharge planning 06/26/2011 09/03/2011 Overview: 06/30/2011 Pt is and lives in [place], [place] At this time, we anticipate that the patient will be discharged home. Patient is in SNF after suffering a stroke. Patient requests home care for a home visit. Plan: - Per social work: Friends in [employer] can assist. SW provided contact info for [...] 12/28/2016 Overview: 06/30/2011 TIA x2 2005, 2008. [employer] meds: ASA 81mg Plan: - resume ASA for homegoing . 1) Laparotomy 2) Joann almita roplasty 3) Wedge the gastric fundus 4) Robbie fundoplication 06/30/2011 Overview: 06/29/2011 - No c/o reflux post op. Slight nausea w/ some PO's (chicken broth, took others w/o complaint) [employer] meds: nexium 40mg daily plan: - pepcid IV changed to PO while in house - resume nexium at discharge. documented as of this encounter (statuses as of 04/25/2022) [facility] Narrative* Problem Noted Date Resolved Date Discharge planning 06/26/2011 09/03/2011 Overview: 06/30/2011 Pt is and lives in [place] At this time, we anticipate that the patient will be discharged home. Patient is in SNF after suffering a stroke. Patient requests home care for a home visit. Plan: - Per social work: Friends in [facility] can assist. SW provided contact [...] 12/28/2016 Overview: 06/30/2011 TIA x2 2005, 2008. [employer] meds: ASA 81mg Plan: - resume ASA for homegoing . 1) Laparotomy 2) Joann almita roplasty 3) Wedge the gastric fundus 4) Robbie fundoplication 06/30/2011 Overview: 06/29/2011 - No c/o reflux post op. Slight nausea w/ some PO's (chicken broth, took others w/o complaint) [employer] meds: nexium 40mg daily plan: - pepcid IV changed to PO while in house - resume nexium at discharge. documented as of this encounter (statuses as of 04/26/2022) [facility] Narrative* Problem Noted Date Resolved Date Discharge planning 06/26/2011 09/03/2011 Overview: 06/30/2011 Pt is and lives in [place] At this time, we anticipate that the patient will be discharged home. Patient is in SNF after suffering a stroke. Patient requests home care for a home visit. Plan: - Per social work: Friends in [facility] can assist. SW provided contact [...] 12/28/2016 Overview: 06/30/2011 TIA x2 2005, 2008. [employer] meds: ASA 81mg Plan: - resume ASA for homegoing . 1) Laparotomy 2) Joann almita roplasty 3) Wedge the gastric fundus 4) Robbie fundoplication 06/30/2011 Overview: 06/29/2011 - No c/o reflux post op. Slight nausea w/ some PO's (chicken broth, took others w/o complaint) [employer] meds: nexium 40mg daily plan: - pepcid IV changed to PO while in house - resume nexium at discharge. documented as of this encounter (statuses as of 05/08/2022) [facility] Narrative* Problem Noted Date Resolved Date Discharge planning 06/26/2011 09/03/2011 Overview: 06/30/2011 Pt is and lives in [place] At this time, we anticipate that the patient will be discharged home. Patient is in SNF after suffering a stroke. Patient requests home care for a home visit. Plan: - Per social work: Friends in [facility] can assist. SW provided contact [...] 12/28/2016 Overview: 06/30/2011 TIA x2 2005, 2008. [employer] meds: ASA 81mg Plan: - resume ASA for homegoing . 1) Laparotomy 2) Joann almita roplasty 3) Wedge the gastric fundus 4) Robbie fundoplication 06/30/2011 Overview: 06/29/2011 - No c/o reflux post op. Slight nausea w/ some PO's (chicken broth, took others w/o complaint) [employer] meds: nexium 40mg daily plan: - pepcid IV changed to PO while in house - resume nexium at discharge. documented as of this encounter (statuses as of 05/09/2022) [facility] Narrative* Problem Noted Date Resolved Date Discharge planning 06/26/2011 09/03/2011 Overview: 06/30/2011 Pt is and lives in [place] At this time, we anticipate that the patient will be discharged home. Patient is in SNF after suffering a stroke. Patient requests home care for a home visit. Plan: - Per social work: Friends in [facility] can assist. SW provided contact info for this [employer] to call when pt returns home if [...] 12/28/2016 Overview: 06/30/2011 TIA x2 2005, 2008. [employer] meds: ASA 81mg Plan: - resume ASA for homegoing . 1) Laparotomy 2) Joann almita roplasty 3) Wedge the gastric fundus 4) Robbie fundoplication 06/30/2011 Overview: 06/29/2011 - No c/o reflux post op. Slight nausea w/ some PO's (chicken broth, took others w/o complaint) [employer] meds: nexium 40mg daily plan: - pepcid IV changed to PO while in house - resume nexium at discharge. documented as of this encounter (statuses as of 05/22/2022) [facility] Narrative* Problem Noted Date Resolved Date Discharge planning 06/26/2011 09/03/2011 Overview: 06/30/2011 Pt is and lives in [place] At this time, we anticipate that the patient will be discharged home. Patient is in SNF after suffering a stroke. Patient requests home care for a home visit. Plan: - Per social work: Friends in [facility] can assist. SW provided contact [...] 12/28/2016 Overview: 06/30/2011 TIA x2 2005, 2008. [employer] meds: ASA 81mg Plan: - resume ASA for homegoing . 1) Laparotomy 2) Joann almita roplasty 3) Wedge the gastric fundus 4) Robbie fundoplication 06/30/2011 Overview: 06/29/2011 - No c/o reflux post op. Slight nausea w/ some PO's (chicken broth, took others w/o complaint) [employer] meds: nexium 40mg daily plan: - pepcid IV changed to PO while in house - resume nexium at discharge. documented as of this encounter (statuses as of 05/25/2022) [facility] Narrative* Problem Noted Date Resolved Date Discharge planning 06/26/2011 09/03/2011 Overview: 06/30/2011 Pt is and lives in [place] At this time, we anticipate that the patient will be discharged home. Patient is in SNF after suffering a stroke. Patient requests home care for a home visit. Plan: - Per social work: Friends in [facility] can assist. SW provided contact info for this [employer] to call when pt returns home if [...] 12/28/2016 Overview: 06/30/2011 TIA x2 2005, 2008. [employer] meds: ASA 81mg Plan: - resume ASA for homegoing . 1) Laparotomy 2) Joann almita roplasty 3) Wedge the gastric fundus 4) Robbie fundoplication 06/30/2011 Overview: 06/29/2011 - No c/o reflux post op. Slight nausea w/ some PO's (chicken broth, took others w/o complaint) [employer] meds: nexium 40mg daily plan: - pepcid IV changed to PO while in house - resume nexium at discharge. documented as of this encounter (statuses as of 06/10/2022) [facility]04-11-2012 History of Past illness Narrative* Problem Noted Date Resolved Date Discharge planning 06/26/2011 09/03/2011 Overview: 06/30/2011 Pt is and lives in [place], [place] At this time, we anticipate that the patient will be discharged home. Patient is in SNF after suffering a stroke. Patient requests home care for a home visit. Plan: - Per social work: Friends in [facility] can assist. SW provided contact [...] 12/28/2016 Overview: 06/30/2011 TIA x2 2005, 2008. [employer] meds: ASA 81mg Plan: - resume ASA for homegoing . 1) Laparotomy 2) Joann almita roplasty 3) Wedge the gastric fundus 4) Robbie fundoplication 06/30/2011 Overview: 06/29/2011 - No c/o reflux post op. Slight nausea w/ some PO's (chicken broth, took others w/o complaint) [employer] meds: nexium 40mg daily plan: - pepcid IV changed to PO while in house - resume nexium at discharge. documented as of this encounter (statuses as of 06/17/2022) [facility]04-11-2012 History of Past illness Narrative* Problem Noted Date Resolved Date Discharge planning 06/26/2011 09/03/2011 Overview: 06/30/2011 Pt is and lives in [place], [place] At this time, we anticipate that [...] 12/28/2016 Overview: 06/30/2011 TIA x2 2005, 2008. [employer] meds: ASA 81mg Plan: - resume ASA for homegoing . 1) Laparotomy 2) Joann almita roplasty 3) Wedge the gastric fundus 4) Robbie fundoplication 06/30/2011 Overview: 06/29/2011 - No c/o reflux post op. Slight nausea w/ some PO's (chicken broth, took others w/o complaint) [employer] meds: nexium 40mg daily plan: - pepcid IV changed to PO while in house - resume nexium at discharge. documented as of this encounter (statuses as of 07/31/2022) [facility]04-11-2012 History of Past illness Narrative* Problem Noted Date Resolved Date Discharge planning 06/26/2011 09/03/2011 Overview: 06/30/2011 Pt is and lives in [place], [place] At this time, we anticipate that the patient will be discharged home. Patient is in SNF after suffering a stroke. Patient requests home care for a home visit. Plan: - Per social work: Friends in [facility] can assist. EDENILSON provided contact info for [employer] to call when pt returns home if [...] 12/28/2016 Overview: 06/30/2011 TIA x2 2005, 2008. [employer] meds: ASA 81mg Plan: - resume ASA for homegoing . 1) Laparotomy 2) Joann almita roplasty 3) Wedge the gastric fundus 4) Robbie fundoplication 06/30/2011 Overview: 06/29/2011 - No c/o reflux post op. Slight nausea w/ some PO's (chicken broth, took others w/o complaint) [employer] meds: nexium 40mg daily plan: - pepcid IV changed to PO while in house - resume nexium at discharge. documented as of this encounter (statuses as of 08/20/2022) [facility]04-11-2012 History of Past illness Narrative* Problem Noted Date Resolved Date Discharge planning 06/26/2011 09/03/2011 Overview: 06/30/2011 Pt is and lives in [place], [place] At this time, we anticipate that the patient will be discharged home. Patient is in SNF after suffering a stroke. Patient requests home care for a home visit. Plan: - Per social work: Friends in [facility] can assist. EDENILSON provided contact info for this [employer] to call when pt returns home if [...] 12/28/2016 Overview: 06/30/2011 TIA x2 2005, 2008. [employer] meds: ASA 81mg Plan: - resume ASA for homegoing . 1) Laparotomy 2) Joann almita roplasty 3) Wedge the gastric fundus 4) Robbie fundoplication 06/30/2011 Overview: 06/29/2011 - No c/o reflux post op. Slight nausea w/ some PO's (chicken broth, took others w/o complaint) [employer] meds: nexium 40mg daily plan: - pepcid IV changed to PO while in house - resume nexium at discharge. documented as of this encounter (statuses as of 09/11/2022) [facility]04-11-2012 History of Past illness Narrative* Problem Noted Date Resolved Date Discharge planning 06/26/2011 09/03/2011 Overview: 06/30/2011 Pt is and lives in [place], [place] At this time, we anticipate that the patient will be discharged home. Patient is in SNF after suffering a stroke. Patient requests home care for a home visit. Plan: - Per social work: Friends in [facility] can assist. EDENILSON provided contact info for this [employer] to call when pt returns home if [...] 12/28/2016 Overview: 06/30/2011 TIA x2 2005, 2008. [employer] meds: ASA 81mg Plan: - resume ASA for homegoing . 1) Laparotomy 2) Joann almita roplasty 3) Wedge the gastric fundus 4) Robbie fundoplication 06/30/2011 Overview: 06/29/2011 - No c/o reflux post op. Slight nausea w/ some PO's (chicken broth, took others w/o complaint) [employer] meds: nexium 40mg daily plan: - pepcid IV changed to PO while in house - resume nexium at discharge. documented as of this encounter (statuses as of 09/18/2022) [facility]04-11-2012 History of Past illness Narrative* Problem Noted Date Resolved Date Discharge planning 06/26/2011 09/03/2011 Overview: 06/30/2011 Pt is and lives in [place], [place] At this time, we anticipate that the patient will be discharged home. Patient is in SNF after suffering a stroke. Patient requests home care for a home visit. Plan: - Per social work: Friends in [facility] can assist. SW provided contact [...] 12/28/2016 Overview: 06/30/2011 TIA x2 2005, 2008. [employer] meds: ASA 81mg Plan: - resume ASA for homegoing . 1) Laparotomy 2) Joann almita roplasty 3) Wedge the gastric fundus 4) Robbie fundoplication 06/30/2011 Overview: 06/29/2011 - No c/o reflux post op. Slight nausea w/ some PO's (chicken broth, took others w/o complaint) [employer] meds: nexium 40mg daily plan: - pepcid IV changed to PO while in house - resume nexium at discharge. documented as of this encounter (statuses as of 09/19/2022) [facility]04-11-2012 History of Past illness Narrative* Problem Noted Date Resolved Date Discharge planning 06/26/2011 09/03/2011 Overview: 06/30/2011 Pt is and lives in [place], [place] At this time, we anticipate that the patient will be discharged home. Patient is in SNF after suffering a stroke. Patient requests home care for a home visit. Plan: - Per social work: Friends in [facility] can assist. SW provided contact [...] 12/28/2016 Overview: 06/30/2011 TIA x2 2005, 2008. [employer] meds: ASA 81mg Plan: - resume ASA for homegoing . 1) Laparotomy 2) Joann almita roplasty 3) Wedge the gastric fundus 4) Robbie fundoplication 06/30/2011 Overview: 06/29/2011 - No c/o reflux post op. Slight nausea w/ some PO's (chicken broth, took others w/o complaint) [employer] meds: nexium 40mg daily plan: - pepcid IV changed to PO while in house - resume nexium at discharge. documented as of this encounter (statuses as of 09/20/2022) [facility]04-11-2012 History of Past illness Narrative* Problem Noted Date Diagnosed Date Resolved Date Discharge planning 06/26/2011 2 Overview: 06/30/2011 Pt is and lives in [place], [place] At this time, we anticipate that the patient will be discharged home. Patient is in SNF after suffering a stroke. Patient requests home care for a home visit. Plan: - Per social work: Friends in [facility] can assist. SW provided contact [...] 12/28/2016 Overview: 06/30/2011 TIA x2 2005, 2008. [employer] meds: ASA 81mg Plan: - resume ASA for homegoing . 1) Laparotomy 2) Joann almita roplasty 3) Wedge the gastric fundus 4) Robbie fundoplication 06/30/2011 Overview: 06/29/2011 - No c/o reflux post op. Slight nausea w/ some PO's (chicken broth, took others w/o complaint) [employer] meds: nexium 40mg daily plan: - pepcid IV changed to PO while in house - resume nexium at discharge. documented as of this encounter (statuses as of 09/24/2022) [facility]04-11-2012 History of Past illness Narrative* Problem Noted Date Diagnosed Date Resolved Date Discharge planning 06/26/2011 2 Overview: 06/30/2011 Pt is and lives in [place], [place] At this time, we anticipate that the patient will be discharged home. Patient is in SNF after suffering a stroke. Patient requests home care for a home visit. Plan: - Per social work: Friends in [facility] can assist. SW provided contact [...] 12/28/2016 Overview: 06/30/2011 TIA x2 2005, 2008. [employer] meds: ASA 81mg Plan: - resume ASA for homegoing . 1) Laparotomy 2) Joann almita roplasty 3) Wedge the gastric fundus 4) Robbie fundoplication 06/30/2011 Overview: 06/29/2011 - No c/o reflux post op. Slight nausea w/ some PO's (chicken broth, took others w/o complaint) [employer] meds: nexium 40mg daily plan: - pepcid IV changed to PO while in house - resume nexium at discharge. documented as of this encounter (statuses as of 10/29/2022) [facility]04-11-2012 History of Past illness Narrative* Problem Noted Date Diagnosed Date Resolved Date Discharge planning 06/26/2011 2 Overview: 06/30/2011 Pt is and lives in [place], [place] At this time, we anticipate that the patient will be discharged home. Patient is in SNF after suffering a stroke. Patient requests home care for a home visit. Plan: - Per social work: Friends in [facility] can assist. SW provided contact [...] 12/28/2016 Overview: 06/30/2011 TIA x2 2005, 2008. [employer] meds: ASA 81mg Plan: - resume ASA for homegoing . 1) Laparotomy 2) Joann almita roplasty 3) Wedge the gastric fundus 4) Robbie fundoplication 06/30/2011 Overview: 06/29/2011 - No c/o reflux post op. Slight nausea w/ some PO's (chicken broth, took others w/o complaint) [employer] meds: nexium 40mg daily plan: - pepcid IV changed to PO while in house - resume nexium at discharge. documented as of this encounter (statuses as of 11/11/2022) [facility]04-11-2012 History of Past illness Narrative* Problem Noted Date Diagnosed Date Resolved Date Discharge planning 06/26/2011 2 Overview: 06/30/2011 Pt is and lives in [place], [place] At this time, we anticipate that the patient will be discharged home. Patient is in SNF after suffering a stroke. Patient requests home care for a home visit. Plan: - Per social work: Friends in [facility] can assist. SW provided contact [...] 12/28/2016 Overview: 06/30/2011 TIA x2 2005, 2008. [employer] meds: ASA 81mg Plan: - resume ASA for homegoing . 1) Laparotomy 2) Joann almita roplasty 3) Wedge the gastric fundus 4) Robbie fundoplication 06/30/2011 Overview: 06/29/2011 - No c/o reflux post op. Slight nausea w/ some PO's (chicken broth, took others w/o complaint) [employer] meds: nexium 40mg daily plan: - pepcid IV changed to PO while in house - resume nexium at discharge. documented as of this encounter (statuses as of 01/19/2023) [facility]04-11-2012 History of Past illness Narrative* Problem Noted Date Diagnosed Date Resolved Date Discharge planning 06/26/2011 2 Overview: 06/30/2011 Pt is and lives in [place], [place] At this time, we anticipate that the patient will be discharged home. Patient is in SNF after suffering a stroke. Patient requests home care for a home visit. Plan: - Per social work: Friends in [facility] can assist. SW provided contact [...] 12/28/2016 Overview: 06/30/2011 TIA x2 2005, 2008. [employer] meds: ASA 81mg Plan: - resume ASA for homegoing . 1) Laparotomy 2) Joann almita roplasty 3) Wedge the gastric fundus 4) Robbie fundoplication 06/30/2011 Overview: 06/29/2011 - No c/o reflux post op. Slight nausea w/ some PO's (chicken broth, took others w/o complaint) [employer] meds: nexium 40mg daily plan: - pepcid IV changed to PO while in house - resume nexium at discharge. documented as of this encounter (statuses as of 02/12/2023) [facility]04-11-2012 History of Past illness Narrative* Problem Noted Date Diagnosed Date Resolved Date Discharge planning 06/26/2011 2 Overview: 06/30/2011 Pt is and lives in [place], [place] At this time, we anticipate that the patient will be discharged home. Patient is in SNF after suffering a stroke. Patient requests home care for a home visit. Plan: - Per social work: Friends in [employer] can assist. SW provided contact info for this [employer] to call when pt returns home if [...] 12/28/2016 Overview: 06/30/2011 TIA x2 2005, 2008. [employer] meds: ASA 81mg Plan: - resume ASA for homegoing . 1) Laparotomy 2) Joann almita roplasty 3) Wedge the gastric fundus 4) Robbie fundoplication 06/30/2011 Overview: 06/29/2011 - No c/o reflux post op. Slight nausea w/ some PO's (chicken broth, took others w/o complaint) [employer] meds: nexium 40mg daily plan: - pepcid IV changed to PO while in house - resume nexium at discharge. documented as of this encounter (statuses as of 02/21/2023) [facility]04-11-2012 History of Past illness Narrative* Problem Noted Date Diagnosed Date Resolved Date Discharge planning 06/26/2011 2 Overview: 06/30/2011 Pt is and lives in [place], [place] At this time, we anticipate that the patient will be discharged home. Patient is in SNF after suffering a stroke. Patient requests home care for a home visit. Plan: - Per social work: Friends in [place] can assist. SW provided contact info for [...] 12/28/2016 Overview: 06/30/2011 TIA x2 2005, 2008. [employer] meds: ASA 81mg Plan: - resume ASA for homegoing . 1) Laparotomy 2) Joann almita roplasty 3) Wedge the gastric fundus 4) Robbie fundoplication 06/30/2011 Overview: 06/29/2011 - No c/o reflux post op. Slight nausea w/ some PO's (chicken broth, took others w/o complaint) [employer] meds: nexium 40mg daily plan: - pepcid IV changed to PO while in house - resume nexium at discharge. documented as of this encounter (statuses as of 02/24/2023) [facility]04-11-2012 History of Past illness Narrative* Problem Noted Date Diagnosed Date Resolved Date Discharge planning 06/26/2011 2 Overview: 06/30/2011 Pt is and lives in [place], [place] At this time, we anticipate that the patient will be discharged home. Patient is in SNF after suffering a stroke. Patient requests home care for a home visit. Plan: - Per social work: Friends in [facility] can assist. SW provided contact info for this [employer] to call when pt returns home if [...] 12/28/2016 Overview: 06/30/2011 TIA x2 2005, 2008. [employer] meds: ASA 81mg Plan: - resume ASA for homegoing . 1) Laparotomy 2) Joann almita roplasty 3) Wedge the gastric fundus 4) Robbie fundoplication 06/30/2011 Overview: 06/29/2011 - No c/o reflux post op. Slight nausea w/ some PO's (chicken broth, took others w/o complaint) [employer] meds: nexium 40mg daily plan: - pepcid IV changed to PO while in house - resume nexium at discharge. documented as of this encounter (statuses as of 04/29/2023) [facility]04-11-2012 History of Past illness Narrative* Problem Noted Date Diagnosed Date Resolved Date Discharge planning 06/26/2011 2 Overview: 06/30/2011 Pt is and lives in [place] At this time, we anticipate that [...] 12/28/2016 Overview: 06/30/2011 TIA x2 2005, 2008. [employer] meds: ASA 81mg Plan: - resume ASA for homegoing . 1) Laparotomy 2) Joann almita roplasty 3) Wedge the gastric fundus 4) Robbie fundoplication 06/30/2011 Overview: 06/29/2011 - No c/o reflux post op. Slight nausea w/ some PO's (chicken broth, took others w/o complaint) [employer] meds: nexium 40mg daily plan: - pepcid IV changed to PO while in house - resume nexium at discharge. documented as of this encounter (statuses as of 07/04/2023) [facility]04-[facility] History of Past illness Narrative* Problem Noted Date Diagnosed Date Resolved Date Discharge planning 06/26/2011 2 Overview: 06/30/2011 Pt is and lives in [place], [place] At this time, we anticipate that [...] 12/28/2016 Overview: 06/30/2011 TIA x2 2005, 2008. [employer] meds: ASA 81mg Plan: - resume ASA for homegoing . 1) Laparotomy 2) Joann almita roplasty 3) Wedge the gastric fundus 4) Robbie fundoplication 06/30/2011 Overview: 06/29/2011 - No c/o reflux post op. Slight nausea w/ some PO's (chicken broth, took others w/o complaint) [employer] meds: nexium 40mg daily plan: - pepcid IV changed to PO while in house - resume nexium at discharge. documented as of this encounter (statuses as of 07/04/2023) [facility] Family history of colon cancer Family history of malignant neoplasm of gastrointestinal tract Family history of gene mutation Personal history of colonic polyps [facility] for screening mamm[facility] for [facility] cancer [facility] Diagnosis Acquired hypothyroidism Unspecified hypothyroidism [facility] Diagnosis Onset Date Resolution Status Asthma chronic Chronic cough [facility] Work Phone: Evaluation note* Diagnosis Acquired hypothyroidism- Primary Unspecified hypothyroidism IFG (impaired fasting glucose) Impaired fasting glucose Vitamin D deficiency Unspecified vitamin D deficiency Essential hypertension Unspecified essential hypertension Vertigo Dizziness and giddiness OAB (overactive bladder) Hypertonicity of bladder Dysphagia, unspecified type Anxiety Anxiety state, unspecified [facility] Diagnosis Chronic bilateral low back pain with bilateral sciatica Acquired hypothyroidism Unspecified hypothyroidism [facility] Diagnosis Vertigo Dizziness and giddiness Anxiety Anxiety state, unspecified [facility] Diagnosis UTI symptoms- Primary Other symptoms involving urinary system [facility] Diagnosis Vertigo Dizziness and giddiness Anxiety Anxiety state, unspecified [facility] Diagnosis Onset Date Resolution Status Asthma chronic [facility] Work Phone: Evaluation note* Diagnosis Submandibular lymphadenopathy- Primary Enlargement of lymph nodes Primary hypertension Unspecified essential hypertension Throat pain [facility] Diagnosis Onset Date Resolution Status Asthma chronic Bilateral leg pain acute Difficulty in walking acute Dizziness acute [facility] Work Phone: Evaluation note* Diagnosis Vertigo Dizziness and giddiness Anxiety Anxiety state, unspecified [facility] Diagnosis Pain in both lower extremities- Primary Bilateral leg edema Edema Imbalance Abnormality of gait Cold sore Herpes simplex without mention of complication [facility] Diagnosis Vertigo Dizziness and giddiness Anxiety Anxiety state, unspecified [facility] Diagnosis Rash- Primary Rash and other nonspecific skin eruption Intertrigo Other specified erythematous condition [facility] Diagnosis Vertigo Dizziness and giddiness Anxiety Anxiety state, unspecified [facility] Diagnosis Onset Date Resolution Status Atherosclerotic heart diseas e of [place] coronary artery without angina pectoris chronic Essential hypertension chron ic Barretts esophagus acute Abdominal pain chronic Chronic cough chronic [facility] Work Phone: Evaluation note* Diagnosis Vertigo Dizziness and giddiness Anxiety Anxiety state, unspecified [facility] Diagnosis Encounter for screening mammogram for breast cancer documented in this encounter [facility] note* Diagnosis Chronic bilateral low back pain with bilateral sciatica documented in this encounter [facility] note* Diagnosis Acquired hypothyroidism- Primary Unspecified hypothyroidism Essential hypertension Unspecified essential hypertension Chronic bilateral low back pain with bilateral sciatica Elevated glucose Other abnormal glucose Mixed hyperlipidemia Encounter for immunization Need for other specified prophylactic vaccination against single bacterial disease Vertigo Dizziness and giddiness Anxiety Anxiety state, unspecified documented in this encounter [facility] note* Diagnosis Acquired hypothyroidism- Primary Unspecified hypothyroidism Mixed hyperlipidemia Essential hypertension Unspecified essential hypertension Anemia, unspecified type IFG (impaired fasting glucose) Impaired fasting glucose Medication monitoring encounter Encounter for therapeutic drug monitoring documented in this encounter [facility] note* Diagnosis Onset Date Resolution Status Atherosclerotic heart diseas e of [place] coronary artery without angina pectoris chronic Essential hypertension chron ic Abdominal pain chronic Barretts esophagus chronic Asthma [facility] Work Phone: Evaluation note* Diagnosis Vertigo Dizziness and giddiness Anxiety Anxiety state, unspecified documented in this encounter [facility] note* Diagnosis Onset Date Resolution Status Abdominal pain chronic Barretts esophagus chronic Asthma [facility] Work Phone: Evaluation note* Diagnosis Strain of lumbar region, subsequent encounter- Primary Chronic bilateral low back pain with bilateral sciatica documented in this encounter [facility] note* Diagnosis Acute pain of both knees- Primary Acute pain of both knees documented in this encounter [facility] note* Diagnosis Acquired hypothyroidism Unspecified hypothyroidism documented in this encounter [facility] note* Diagnosis Vertigo Dizziness and giddiness Anxiety Anxiety state, unspecified documented in this encounter [facility] note* Diagnosis External hemorrhoid- Primary External hemorrhoids without mention of complication documented in this encounter [facility] note* Diagnosis DDD (degenerative disc disease), lumbar- [...] use of medication documented in this encounter [facility] note* Diagnosis Encounter for screening mammogram for breast cancer documented in this encounter [facility] note* Diagnosis Acquired hypothyroidism Unspecified hypothyroidism Chronic bilateral low back pain with bilateral sciatica documented in this encounter [facility] note* Diagnosis Acute pain of both knees documented in this encounter [facility] note* Diagnosis Acute pain of right shoulder History of recent fall documented in this encounter [facility] note* Diagnosis Trigger middle finger of right hand Trigger finger (acquired) Ganglion cyst Ganglion, unspecified Mass of wrist, right Mass of finger, right documented in this encounter [facility] note* Diagnosis Back pain of thoracolumbar region Lumbago Contusion of middle back wall of thorax, sequela Lumbar contusion, sequela [facility] Diagnosis Vertigo Dizziness and giddiness Anxiety Anxiety state, unspecified documented in this encounter [facility] note* Diagnosis Acute cough- Primary Acquired hypothyroidism Unspecified hypothyroidism Spinal stenosis of lumbar region, unspecified whether neurogenic claudication present Primary hypertension Unspecified essential hypertension Mixed hyperlipidemia Vitamin D deficiency Unspecified vitamin D deficiency Diet-controlled diabetes mellitus (HCC) Screening for depression documented in this encounter [facility] note* Diagnosis Chronic bilateral low back pain with bilateral sciatica [facility]* Diagnosis Chronic bilateral low back pain with bilateral sciatica [facility]* Diagnosis Vertigo Dizziness and giddiness Anxiety Anxiety state, unspecified documented in this encounter [facility] note* Diagnosis Encounter for screening mammogram for breast cancer documented in this encounter [facility] note* Diagnosis Acquired hypothyroidism- Primary Unspecified hypothyroidism Primary hypertension Unspecified essential hypertension Mixed hyperlipidemia Chronic pain of left knee Pain in joint, lower leg Chronic bilateral low back pain with bilateral sciatica Encounter for immunization Need for other specified prophylactic vaccination against single bacterial disease documented in this encounter [facility] note* Diagnosis Vertigo Dizziness and giddiness Anxiety Anxiety state, unspecified [facility]* Diagnosis Acquired hypothyroidism Unspecified hypothyroidism documented in this encounter [facility] note* Diagnosis Diet-controlled diabetes mellitus (HCC)- Primary Essential hypertension Unspecified essential hypertension Mixed hyperlipidemia Acquired hypothyroidism Unspecified hypothyroidism Obesity, Class II, BMI 35-39.9 Obesity, unspecified Encounter for therapeutic drug monitoring Vitamin D deficiency Unspecified vitamin D deficiency Anxiety Anxiety state, unspecified Bursitis of other bursa of left hip [facility] Diagnosis Diet-controlled diabetes mellitus (HCC) [facility] Diagnosis Vertigo Dizziness and giddiness Anxiety Anxiety state, unspecified [facility] Raul Casper [facility] April 23, 2023 8:31am Note Date/Time April 23, 2023 8 :31am [facility] Medical Records Department [address] [place] [address] History & Physical Exam 04/23/23 0830 MR#: [id number] Acct: [id number] Name: KESHIA ROJAS Rep #:[id number] : 1950 73 From: Raul Casper DO PCP: Dr. Paulo Scott MD Status:[facility] Location: [place] [address] History and Physical Date of Admission: 04/23/23 73 F who presents to the office today for [facility] 5. PMH anemia, Sarmiento?s esophagus, IBS, gallstone pancreatitis, [...] without pertinent abnormality ? CRP H5.65 Contact 8.2.23 with bloodwork results. She is working at stool and urine samples. ? Stool calprotectin, elastase, lactoferrin, C.difficile (formed), EP, O/P, giardia WNL ? Urine porphyrins coproporhyrin H81, hexacarboxylporphyrin H<3 Contact 11.06.22 with results, recommend specialized porphyria urine testing. ? Urine 11.16.22 LC porphyria WNL OV 03.05.23- Pt doing [...] Appearance: average body habitus and well nourished [facility] Head: normal to inspection Ears: hearing grossly [...] Affect: normal affect Quality Reporting Tobacco Screening ([facility] 138) Smoking Status: Never smoker [...] clinical changes since date of exam. 04/23/23 0831 <Electronically signed by Raul Casper DO> Cosigner Signature (if applicable): CC: Dr. Paulo Scott MD; Raul Casper DO~ Signed [facility] Work Phone: Hospital Discharge instructions Additional Instructions Please be mindful of your constipation and note that all pain medication is constipating. Only take the pain medication if you [facility] Work Phone: Reason for referral (narrative)* Diagnostic Procedure Only (Routine) - Pending Review Specialty Diagnoses / Procedures Referred By Contozzy t Referred To Contact BR IMAGING Diagnoses Encounter for screening mammogram for breast cancer Procedures FORTUNATO SCREENING SCREENING MAMMOGRAPHY BI 2-VIEW BREAST INC Paulo Antoine MD [address] [place] [address] [facility] Imaging [address] [place] [address] Referral ID Status Reason Start Date Expiration Date Visits Requested Visits Authorized [id number] Pending Review Auto-Generat ed Referral 08/22/2021 09/21/2022 1 1 [facility] for referral (narrative)* Diagnostic Procedure Only (Routine) - Closed Specialty Diagnoses / Procedures Referred By Contac t Referred To Contact BR IMAGING Diagnoses Encounter for screening mammogram for breast cancer Procedures FORTUNATO SCREENING SCREENING MAMMOGRAPHY BI 2-VIEW BREAST INC CAD Paulo Scott MD [address] [place] [id number] [facility] [address] [place] [address] Referral ID Status Reason Start Date Expiration Date V isits Requested Visits Authorized [id number] Closed Auto-Generate d Referral 08/22/2021 09/21/2022 1 1 [facility] for referral (narrative)* Diagnostic Procedure Only (Urgent) - Closed Specialty Diagnoses / Procedures Referred By Contac t Referred To Contact XR IMAGING Diagnoses Acute pain of both knees Procedures XR KNEE GENERAL 4V AP BOTH/PA BOTH/LAT/MERC BILATERAL RADIOLOGIC EXAM KNEE COMPLETE 4/MORE VIEWS [facility] [address] [place] [id number] Xr Imaging [facility] Referral ID Status Reason Start Date Expiration Date V isits Requested Visits Authorized [id number] Closed Auto-Generate d Referral 07/22/2023 08/20/2024 1 1 [facility] for referral (narrative)* Diagnostic Procedure Only (Routine) - New Request Specialty Diagnoses / Procedures Referred By Contozzy t Referred To Contact BR IMAGING Diagnoses Encounter for screening mammogram for breast cancer Procedures FORTUNATO SCREENING W MITCHELL SCREENING DIGITAL BREAST TOMOSYNTHESIS BI SCREENING MAMMOGRAPHY BI 2-VIEW BREAST INC CAD Paulo Scott MD [address] [place] [address] Br Imaging [address] [place] [address] Referral ID Status Reason Start Date Expiration Date Visits Requested Visits Authorized [id number] New Request Auto-Generat ed Referral 10/15/2023 11/13/2024 1 1 [facility] for referral (narrative)* Diagnostic Procedure Only (Urgent) - Closed Specialty Diagnoses / Procedures Referred By Contac t Referred To Contact XR IMAGING Diagnoses Acute pain of both knees Procedures XR KNEE GENERAL 4V AP BOTH/PA BOTH/LAT/MERC BILATERAL RADIOLOGIC EXAM KNEE COMPLETE 4/MORE VIEWS [facility] [address] [place] [address] [place] [address] Referral ID Status Reason Start Date Expiration Date V isits Requested Visits Authorized [id number] Closed Auto-Generate d Referral 07/22/2023 08/20/2024 1 1 [facility] for referral (narrative)* Diagnostic Procedure Only (Routine) - Closed Specialty Diagnoses / Procedures Referred By Contac t Referred To Contact XR IMAGING Diagnoses Acute pain of right shoulder History of recent fall Procedures XR SHOULDER GENERAL 3V OR MORE AP/TRUE AP/OTHER RT X-RAY SHOULDER COMPLET MIN 2 VIEWS Paulo Scott MD [address] [place] [address] [place] [address] Referral ID Status Reason Start Date Expiration Date V isits Requested Visits Authorized [id number] Closed Auto-Generate d Referral 12/15/2020 01/14/2022 1 1 [facility] for referral (narrative)No reason for referral information availableWPro[facility] Phone[facility] N[facility]* Diagnostic Procedure Only (Routine) - Closed Specialty Diagnoses / Procedures Referred By Silvana t Referred To Contact BR IMAGING Diagnoses Encounter for screening mammogram for breast cancer Procedures FORTUNATO SCREENING SCREENING MAMMOGRAPHY BI 2-VIEW BREAST INC Paulo Antoine MD [address] [place] [address] Br Imaging [address] [address] Referral ID Status Reason Start Date Expiration Date V isits Requested Visits Authorized [id number] Closed Auto-Generate d Referral 08/22/2021 09/21/2022 1 1 [facility] for visit Narrative* Diagnostic Procedure Only (Urgent) - Closed Specialty Diagnoses / Procedures Referred By Silvana t Referred To Contact XR IMAGING Diagnoses Acute pain of both knees Procedures XR KNEE GENERAL 4V AP BOTH/PA BOTH/LAT/MERC BILATERAL RADIOLOGIC EXAM KNEE COMPLETE 4/MORE VIEWS [facility] [address] [place] [address] Xr Imaging [facility] Referral ID Status Reason Start Date Expiration Date V isits Requested Visits Authorized [id number] Closed Auto-Generate d Referral 07/22/2023 08/20/2024 1 1 [facility] for visit Narrative* Diagnostic Procedure Only (Routine) - Closed Specialty Diagnoses / Procedures Referred By Silvana escobar Referred To Contact XR IMAGING Diagnoses Acute pain of right shoulder History of recent fall Procedures XR SHOULDER GENERAL 3V OR MORE AP/TRUE AP/OTHER RT X-RAY SHOULDER COMPLET MIN 2 VIEWS Paulo Scott MD [address] [place] [address] [place] [address] Referral ID Status Reason Start Date Expiration Date V isits Requested Visits Authorized [id number] Closed Auto-Generate d Referral 12/15/2020 01/14/2022 1 1 [facility] for visit Narrative* Diagnostic Procedure Only (Routine) - Closed Specialty Diagnoses / Procedures Referred By Silvana escobar Referred To Contact BR IMAGING Diagnoses Encounter for screening mammogram for breast cancer Procedures FORTUNATO SCREENING W MITCHELL SCREENING DIGITAL BREAST TOMOSYNTHESIS BI SCREENING MAMMOGRAPHY BI 2-VIEW BREAST INC Paulo Antoine MD [address] [place] [address] Br Imaging [address] [place] [address] Referral ID Status Reason Start Date Expiration Date V isits Requested Visits Authorized [id number] Closed Auto-Generate d Referral 10/15/2023 11/13/2024 1 1 [facility] Reason for Referral Status Reason Specialty Diagnoses / Procedures Referred By Contact Referred To Contact Open Specialty Services Required Lab Diagnoses Family history of colon cancer Family history of gene mutation Personal history of colonic polyps Procedures Genetic Sendout: Common Hereditary Cancers Panel Quoc Diaz MD [address] [place] [address], [address] [place] [address] Specialty Diagnoses / Procedures Referred By Silvana escobar Referred To Contact Diagnoses Ryan Giles MD [address] [place] [address] Referral ID Status Reason Start Date Expiration Date V isits Requested Visits Authorized [id number] Authorized 03/17/2022 03/16/2023 1 1 Specialty Diagnoses / Procedures Referred By Contac t Referred To Contact Diagnoses Strain of lumbar region, subsequent encounter Chronic bilateral low back pain with bilateral sciatica Norman Garcia APRN.DARYL [address] [place] [address] Referral ID Status Reason Start Date Expiration Date Visits Re quested Visits Authorized [id number] Closed 1 1 Advance Directives Documents on File Type Date Recorded Patient Shoe Polisher Expl anation Power of Parcel Post Delivery Documents on File Type Date Recorded Patient Shoe Polisher Expl anation Advance Directive(s) 10/26/2020 12:30 PM Advance Directive(s) 09/29/2020 11:26 AM Advance Directive(s) 06/24/2011 6:54 PM Documents on File Type Date Recorded Patient Shoe Polisher Expl anation Advance Directive(s) 10/26/2020 12:30 PM Advance Directive(s) 09/29/2020 11:26 AM Advance Directive(s) 06/24/2011 6:54 PM Advance Directive Response Recorded Date/ Time Advance Directives No March 21, 2016 4:58pm Living Will No September 18, 2021 1 2:12pm Power of Parcel Post Delivery No September 18, 2021 12:12pm Documents on File Type Date Recorded Patient Shoe Polisher Expl anation Advance Directive(s) 06/24/2011 6:54 PM Advance Directive Response Recorded Date/ Time Advance Directives No March 21, 2016 3:58pm Living Will No April 24 5:17pm Power of Parcel Post Delivery No April 24, 2022 5:17pm Advance Directive Response Recorded Date/ Time Name of Medical Power of Parcel Post Delivery unsure May 05, 2022 1:24pm Advance Directives No March 21, 2016 3:58pm Living Will Yes May 05, 023 1:24pm Power of Parcel Post Delivery Yes May 05, 2022 1:24pm Advance Directive Response Recorded Date/ Time Name of Medical Power of Parcel Post Delivery joshua Royal May 05, 2022 7:36pm Advance Directives No March 21, 2016 3:58pm Living Will Yes May 05, 023 7:36pm Power of Parcel Post Delivery Yes May 05, 2022 7:36pm Documents on File Type Date Recorded Patient Shoe Polisher Expl anation Advance Directive(s) 06/24/2011 6:54 PM Advance Directive Response Recorded Date/ Time Name of Medical Power of Parcel Post Delivery karo sanchez August 05, 2022 2:58pm Advance Directives No March 21, 2016 4:58pm Living Will Yes August 05, 2022 2 :58pm Power of Parcel Post Delivery Yes August 05, 2022 2:58pm Advance Directive Response Recorded Date/ Time Name of Medical Power of Parcel Post Delivery LUIS SANCHEZ April 21, 2023 9:33am Advance Directives No March 21, 2016 3:58pm Living Will Yes April 21 9:33am Power of Parcel Post Delivery Yes April 21, 2023 9:33am Advance Directive Response Recorded Date/ Time Name of Medical Power of Parcel Post Delivery LUIS DGDARI SANCHEZ April 21, 2023 10:33am Advance Directives No March 21, 2016 4:58pm Living Will No June 19, 2023 12:34pm Power of Parcel Post Delivery No June 18 12:34pm Advance Directive Response Recorded Date/ Time Living Will No June 19, 2023 12:34pm Do you have a Healthcare Power of Parcel Post Delivery? No June 19, 2023 12:34pm Advance Directives No March 21, 2016 4:58pm Advance Directive Response Recorded Date/ Time Do you have a Healthcare Power of Parcel Post Delivery? Yes August 22, 2024 3:26pm Advance Directives No March 21, 2016 4:58pm [...] for Visit Atherosclerotic hear t disease of [place] coronary artery without angina pectoris Essential hypertension Barretts esophagus Abdominal pain Chronic cough Chief Complaint 6 M FU 5 MO FU 6 M FU Reason for Visit Atherosclerotic hear t disease of [place] coronary artery without angina pectoris Essential hypertension [...] knee DJD April 16, 2024 9 :19am Chief Complaint Admit Date XRAY LEFT SHOULDER PAIN May 26, 2024 10:10am LEFT HIP June 18, 2024 10:5 7am RM 3 June 18, 2024 11:1 4am 4 M FU June 18, 2024 12:5 9pm PAIN August 22, 2024 3:17p m Reason for Visit Admit Date Trochanteric bursitis, left hip June 10:57am Abdominal pain June 18, 2024 12:5 9pm Barretts esophagus June 18, 2024 12:5 9pm Chief Complaint Admit Date LEFT HIP June 18, 2024 10:5 7am RM 3 June 18, 2024 11:1 4am 4 M FU June 18, 2024 12:5 9pm PAIN August 22, 2024 3:17p m 1 Y FU October 15, 2024 9:5 8am Reason for Visit Admit Date Trochanteric bursitis, left hip June 10:57am Abdominal pain June 18, 2024 12:5 9pm Barretts esophagus June 18, 2024 12:5 9pm Atherosclerotic heart diseas e of [place] coronary artery without angina pectoris October 15, 2024 9:58am Essential hypertension October 15, 2024 9:58am Family History Relationship Condition Age at Onset Recorded Date/T [...] Common Hereditary Cancers Panel Quoc Diaz MD [address] [place] [address], [address] [place] [address] Reason Comments Medication Problem Reason Comments Patient Question Reason Comments F/U 6 months Reason Onset Date Comments Refill Request 11/01/2021 Reason Onset Date Comments Refill Request 02/19/2022 Reason Comments Results Reason Onset Date Comments Refill Request 03/19/2022 Reason Comments Face Swelling Reason Comments Hospital F/U Reason Comments [facility], PT, plan of care FYI-No Action Needed Reason Comments [facility], OT update/verbal order Reason Onset Date [...] Reason Comments Follow Up 4 month f/u Reason Onset Date Comments Refill Request 08/26/2024 Reason Onset Date Comments Refill Request 08/31/2024 Medication Problem 08/31/2024 Patient almos t out Reason Comments 4 month f/u Reason Onset Date Comments Refill Request 10/31/2024 Reason Onset Date Comments Refill Request 11/29/2024 Reason Onset Date Comments Refill Request 11/30/2024 Source Comments (unrecognize d section and content) In the event this informatio n is protected by the Federal Confidentiality of Alcohol and Drug Abuse Patient Records regulations: The Federal rules restrict any use of the information to criminally investigate or prosecute any alcohol or drug abuse patient.[facility] the event this information is protected by the Federal Confidentiality of Alcohol and Drug Abuse Patient Records regulations: The Federal rules restrict any use of the information to criminally investigate or prosecute any alcohol or drug abuse patient.[facility] Hospital[facility] the event this information is protected by the Federal Confidentiality of Alcohol and Drug Abuse Patient Records regulations: The Federal rules restrict any use of the information to criminally investigate or prosecute any alcohol or drug abuse patient.[facility] Hospital[facility] the event this information is protected by the Federal Confidentiality of Alcohol and Drug Abuse Patient Records regulations: The Federal rules restrict any use of the information to criminally investigate or prosecute any alcohol or drug abuse patient.[facility] the event this information is protected by the Federal Confidentiality of Alcohol and Drug Abuse Patient Records regulations: The Federal rules restrict any use of the information to criminally investigate or prosecute any alcohol or drug abuse patient.[facility] Hospital[facility] the event this information is protected by the Federal Confidentiality of Alcohol and Drug Abuse Patient Records regulations: The Federal rules restrict any use of the information to criminally investigate or prosecute any alcohol or drug abuse patient.[facility] Hospital[facility] the event this information is protected by the Federal Confidentiality of Alcohol and Drug Abuse Patient Records regulations: The Federal rules restrict any use of the information to criminally investigate or prosecute any alcohol or drug abuse patient.[facility] Hospital[facility] the event this information is protected by the Federal Confidentiality of Alcohol and Drug Abuse Patient Records regulations: The Federal rules restrict any use of the information to criminally investigate or prosecute any alcohol or drug abuse patient.[facility] Hospital[facility] the event this information is protected by the Federal Confidentiality of Alcohol and Drug Abuse Patient Records regulations: The Federal rules restrict any use of the information to criminally investigate or prosecute any alcohol or drug abuse patient.[facility] Hospital[facility] the event this information is protected by the Federal Confidentiality of Alcohol and Drug Abuse Patient Records regulations: The Federal rules restrict any use of the information to criminally investigate or prosecute any alcohol or drug abuse patient.[facility] Hospital[facility] the event this information is protected by the Federal Confidentiality of Alcohol and Drug Abuse Patient Records regulations: The Federal rules restrict any use of the information to criminally investigate or prosecute any alcohol or drug abuse patient.[facility] HospitalIn the event this information is protected by the Federal Confidentiality of Alcohol and Drug Abuse Patient Records regulations: The Federal rules restrict any use of the information to criminally investigate or prosecute any alcohol or drug abuse patient.[facility] Hospital[facility] the event this information is protected by the Federal Confidentiality of Alcohol and Drug Abuse Patient Records regulations: The Federal rules restrict any use of the information to criminally investigate or prosecute any alcohol or drug abuse patient.[facility] Hospital[facility] the event this information is protected by the Federal Confidentiality of Alcohol and Drug Abuse Patient Records regulations: The Federal rules restrict any use of the information to criminally investigate or prosecute any alcohol or drug abuse patient.[facility] HospitalIn the event this information is protected by the Federal Confidentiality of Alcohol and Drug Abuse Patient Records regulations: The Federal rules restrict any use of the information to criminally investigate or prosecute any alcohol or drug abuse patient.[facility] HospitalIn the event this information is protected by the Federal Confidentiality of Alcohol and Drug Abuse Patient Records regulations: The Federal rules restrict any use of the information to criminally investigate or prosecute any alcohol or drug abuse patient.[facility] HospitalIn the event this information is protected by the Federal Confidentiality of Alcohol and Drug Abuse Patient Records regulations: The Federal rules restrict any use of the information to criminally investigate or prosecute any alcohol or drug abuse patient.[facility] HospitalIn the event this information is protected by the Federal Confidentiality of Alcohol and Drug Abuse Patient Records regulations: The Federal rules restrict any use of the information to criminally investigate or prosecute any alcohol or drug abuse patient.[facility] HospitalIn the event this information is protected by the Federal Confidentiality of Alcohol and Drug Abuse Patient Records regulations: The Federal rules restrict any use of the information to criminally investigate or prosecute any alcohol or drug abuse patient.[facility] HospitalIn the event this information is protected by the Federal Confidentiality of Alcohol and Drug Abuse Patient Records regulations: The Federal rules restrict any use of the information to criminally investigate or prosecute any alcohol or drug abuse patient.[facility] HospitalIn the event this information is protected by the Federal Confidentiality of Alcohol and Drug Abuse Patient Records regulations: The Federal rules restrict any use of the information to criminally investigate or prosecute any alcohol or drug abuse patient.[facility] HospitalIn the event this information is protected by the Federal Confidentiality of Alcohol and Drug Abuse Patient Records regulations: The Federal rules restrict any use of the information to criminally investigate or prosecute any alcohol or drug abuse patient.[facility] HospitalIn the event this information is protected by the Federal Confidentiality of Alcohol and Drug Abuse Patient Records regulations: The Federal rules restrict any use of the information to criminally investigate or prosecute any alcohol or drug abuse patient.[facility] HospitalIn the event this information is protected by the Federal Confidentiality of Alcohol and Drug Abuse Patient Records regulations: The Federal rules restrict any use of the information to criminally investigate or prosecute any alcohol or drug abuse patient.[facility] HospitalIn the event this information is protected by the Federal Confidentiality of Alcohol and Drug Abuse Patient Records regulations: The Federal rules restrict any use of the information to criminally investigate or prosecute any alcohol or drug abuse patient.[facility] HospitalIn the event this information is protected by the Federal Confidentiality of Alcohol and Drug Abuse Patient Records regulations: The Federal rules restrict any use of the information to criminally investigate or prosecute any alcohol or drug abuse patient.[facility] HospitalIn the event this information is protected by the Federal Confidentiality of Alcohol and Drug Abuse Patient Records regulations: The Federal rules restrict any use of the information to criminally investigate or prosecute any alcohol or drug abuse patient.[facility] HospitalIn the event this information is protected by the Federal Confidentiality of Alcohol and Drug Abuse Patient Records regulations: The Federal rules restrict any use of the information to criminally investigate or prosecute any alcohol or drug abuse patient.[facility] HospitalIn the event this information is protected by the Federal Confidentiality of Alcohol and Drug Abuse Patient Records regulations: The Federal rules restrict any use of the information to criminally investigate or prosecute any alcohol or drug abuse patient.[facility] HospitalIn the event this information is protected by the Federal Confidentiality of Alcohol and Drug Abuse Patient Records regulations: The Federal rules restrict any use of the information to criminally investigate or prosecute any alcohol or drug abuse patient.[facility] HospitalIn the event this information is protected by the Federal Confidentiality of Alcohol and Drug Abuse Patient Records regulations: The Federal rules restrict any use of the information to criminally investigate or prosecute any alcohol or drug abuse patient.[facility] HospitalIn the event this information is protected by the Federal Confidentiality of Alcohol and Drug Abuse Patient Records regulations: The Federal rules restrict any use of the information to criminally investigate or prosecute any alcohol or drug abuse patient.[facility] HospitalIn the event this information is protected by the Federal Confidentiality of Alcohol and Drug Abuse Patient Records regulations: The Federal rules restrict any use of the information to criminally investigate or prosecute any alcohol or drug abuse patient.[facility] HospitalIn the event this information is protected by the Federal Confidentiality of Alcohol and Drug Abuse Patient Records regulations: The Federal rules restrict any use of the information to criminally investigate or prosecute any alcohol or drug abuse patient.[facility] HospitalIn the event this information is protected by the Federal Confidentiality of Alcohol and Drug Abuse Patient Records regulations: The Federal rules restrict any use of the information to criminally investigate or prosecute any alcohol or drug abuse patient.[facility] HospitalIn the event this information is protected by the Federal Confidentiality of Alcohol and Drug Abuse Patient Records regulations: The Federal rules restrict any use of the information to criminally investigate or prosecute any alcohol or drug abuse patient.[facility] HospitalIn the event this information is protected by the Federal Confidentiality of Alcohol and Drug Abuse Patient Records regulations: The Federal rules restrict any use of the information to criminally investigate or prosecute any alcohol or drug abuse patient.[facility] HospitalIn the event this information is protected by the Federal Confidentiality of Alcohol and Drug Abuse Patient Records regulations: The Federal rules restrict any use of the information to criminally investigate or prosecute any alcohol or drug abuse patient.[facility] HospitalIn the event this information is protected by the Federal Confidentiality of Alcohol and Drug Abuse Patient Records regulations: The Federal rules restrict any use of the information to criminally investigate or prosecute any alcohol or drug abuse patient.[facility] HospitalIn the event this information is protected by the Federal Confidentiality of Alcohol and Drug Abuse Patient Records regulations: The Federal rules restrict any use of the information to criminally investigate or prosecute any alcohol or drug abuse patient.[facility] HospitalIn the event this information is protected by the Federal Confidentiality of Alcohol and Drug Abuse Patient Records regulations: The Federal rules restrict any use of the information to criminally investigate or prosecute any alcohol or drug abuse patient.[facility] HospitalIn the event this information is protected by the Federal Confidentiality of Alcohol and Drug Abuse Patient Records regulations: The Federal rules restrict any use of the information to criminally investigate or prosecute any alcohol or drug abuse patient.[facility] HospitalIn the event this information is protected by the Federal Confidentiality of Alcohol and Drug Abuse Patient Records regulations: The Federal rules restrict any use of the information to criminally investigate or prosecute any alcohol or drug abuse patient.[facility] HospitalIn the event this information is protected by the Federal Confidentiality of Alcohol and Drug Abuse Patient Records regulations: The Federal rules restrict any use of the information to criminally investigate or prosecute any alcohol or drug abuse patient.[facility] HospitalIn the event this information is protected by the Federal Confidentiality of Alcohol and Drug Abuse Patient Records regulations: The Federal rules restrict any use of the information to criminally investigate or prosecute any alcohol or drug abuse patient.[facility] HospitalIn the event this information is protected by the Federal Confidentiality of Alcohol and Drug Abuse Patient Records regulations: The Federal rules restrict any use of the information to criminally investigate or prosecute any alcohol or drug abuse patient.[facility] HospitalIn the event this information is protected by the Federal Confidentiality of Alcohol and Drug Abuse Patient Records regulations: The Federal rules restrict any use of the information to criminally investigate or prosecute any alcohol or drug abuse patient.[facility] HospitalIn the event this information is protected by the Federal Confidentiality of Alcohol and Drug Abuse Patient Records regulations: The Federal rules restrict any use of the information to criminally investigate or prosecute any alcohol or drug abuse patient.[facility] HospitalIn the event this information is protected by the Federal Confidentiality of Alcohol and Drug Abuse Patient Records regulations: The Federal rules restrict any use of the information to criminally investigate or prosecute any alcohol or drug abuse patient.[facility] HospitalIn the event this information is protected by the Federal Confidentiality of Alcohol and Drug Abuse Patient Records regulations: The Federal rules restrict any use of the information to criminally investigate or prosecute any alcohol or drug abuse patient.[facility] HospitalIn the event this information is protected by the Federal Confidentiality of Alcohol and Drug Abuse Patient Records regulations: The Federal rules restrict any use of the information to criminally investigate or prosecute any alcohol or drug abuse patient.[facility] HospitalIn the event this information is protected by the Federal Confidentiality of Alcohol and Drug Abuse Patient Records regulations: The Federal rules restrict any use of the information to criminally investigate or prosecute any alcohol or drug abuse patient.[facility] HospitalIn the event this information is protected by the Federal Confidentiality of Alcohol and Drug Abuse Patient Records regulations: The Federal rules restrict any use of the information to criminally investigate or prosecute any alcohol or drug abuse patient.[facility] HospitalIn the event this information is protected by the Federal Confidentiality of Alcohol and Drug Abuse Patient Records regulations: The Federal rules restrict any use of the information to criminally investigate or prosecute any alcohol or drug abuse patient.[facility] HospitalIn the event this information is protected by the Federal Confidentiality of Alcohol and Drug Abuse Patient Records regulations: The Federal rules restrict any use of the information to criminally investigate or prosecute any alcohol or drug abuse patient.[facility] HospitalIn the event this information is protected by the Federal Confidentiality of Alcohol and Drug Abuse Patient Records regulations: The Federal rules restrict any use of the information to criminally investigate or prosecute any alcohol or drug abuse patient.[facility] HospitalIn the event this information is protected by the Federal Confidentiality of Alcohol and Drug Abuse Patient Records regulations: The Federal rules restrict any use of the information to criminally investigate or prosecute any alcohol or drug abuse patient.[facility] HospitalIn the event this information is protected by the Federal Confidentiality of Alcohol and Drug Abuse Patient Records regulations: The Federal rules restrict any use of the information to criminally investigate or prosecute any alcohol or drug abuse patient.[facility] HospitalIn the event this information is protected by the Federal Confidentiality of Alcohol and Drug Abuse Patient Records regulations: The Federal rules restrict any use of the information to criminally investigate or prosecute any alcohol or drug abuse patient.[facility] HospitalIn the event this information is protected by the Federal Confidentiality of Alcohol and Drug Abuse Patient Records regulations: The Federal rules restrict any use of the information to criminally investigate or prosecute any alcohol or drug abuse patient.[facility] HospitalIn the event this information is protected by the Federal Confidentiality of Alcohol and Drug Abuse Patient Records regulations: The Federal rules restrict any use of the information to criminally investigate or prosecute any alcohol or drug abuse patient.[facility] HospitalIn the event this information is protected by the Federal Confidentiality of Alcohol and Drug Abuse Patient Records regulations: The Federal rules restrict any use of the information to criminally investigate or prosecute any alcohol or drug abuse patient.[facility] HospitalIn the event this information is protected by the Federal Confidentiality of Alcohol and Drug Abuse Patient Records regulations: The Federal rules restrict any use of the information to criminally investigate or prosecute any alcohol or drug abuse patient.[facility] Care Teams (unrecognized sec tion and content) Ui Developer With Angular Js Relationship Specialty Start Date End Date Paulo Scott MD [address] [place] [address] PCP - General 02/20/06 Ui Developer With Angular Js Relationship Specialty Start Date End Date Paulo Scott MD [facility] [place] [address] PCP - General 02/20/06 Ui Developer With Angular Js Relationship Specialty Start Date End Date Paulo Scott MD [facility] [place] [address] PCP - General 02/20/06 Ui Developer With Angular Js Relationship Specialty Start Date End Date Paulo Scott MD [facility] [place] [address] PCP - General 02/20/06 Ui Developer With Angular Js Relationship Specialty Start Date End Date Paulo Scott MD [facility] [place] [address] PCP - General 02/20/06 Team Status: Active [...] Dr. Rajinder Alatorre DO Emergency Provider Active Ui Developer With Angular Js Relationship Specialty Start Date End Date Paulo Scott MD [address] [place] [address] PCP - General 02/20/06 Team Status: Inactive Member Role Status Dates Dr. Paulo Scott MD Primary Care Provider Active Dr. Rajinder Alatorre , DO Attending Provider, Emergency Provider Active Team [...] Shelia Campos , DO Attending Provider Active Ui Developer With Angular J[employer] Relationship Specialty Start Date End Date Paulo Scott MD [address] [place] [address] PCP - General 02/20/06 Ui Developer With Angular Js Relationship Specialty Start Date End Date Paulo Scott MD [address] [place] [address] PCP - General 02/20/06 Ui Developer With Angular Js Relationship Specialty Start Date End Date Paulo Scott MD [address] [place] [address] PCP - General 02/20/06 Ui Developer With Angular Js Relationship Specialty Start Date End Date Paulo Scott MD [address] [place] [address] PCP - General 02/20/06 Ui Developer With Angular Js Relationship Specialty Start Date End Date Paulo Scott MD [address] [place] [address] PCP - General 02/20/06 Ui Developer With Angular Js Relationship Specialty Start Date End Date Paulo Scott MD [address] [place] [address] PCP - General 02/20/06 Ui Developer With Angular Js Relationship Specialty Start Date End Date Paulo Scott MD [address] [place] [address] PCP - General 02/20/06 Ui Developer With Angular Js Relationship Specialty Start Date End Date Paulo Scott MD [address] [facility], [place] [address] PCP - General 02/20/06 Team Status: Inactive Member Role Status Dates Dr. Paulo Scott MD Primary Care Provider, Referr ing Provider Active Suzie Lewis LASER BEAM MACHINE OPERATOR, LASER BEAM MACHINE OPERATOR-C Attending Provider Active Team Status: Inactive Member [...] Casper DO Attending Provider, Referring Provider Active Ui Developer With Angular J[employer] Relationship Specialty Start Date End Date Paulo Scott MD [address] [place], [place] [address] PCP - General 02/20/06 Ui Developer With Angular Js Relationship Specialty Start Date End Date Paulo Scott MD [address] [place] [address] PCP - General 02/20/06 Ui Developer With Angular Js Relationship Specialty Start Date End Date Paulo Scott MD [address] [place] [address] PCP - General 02/20/06 Ui Developer With Angular Js Relationship Specialty Start Date End Date Paulo Scott MD [address] [place] [address] PCP - General 02/20/06 Ui Developer With Angular Js Relationship Specialty Start Date End Date Paulo Scott MD [address] [place] [address] PCP - General 02/20/06 Team Status: Inactive Member Role Status Dates Dr. Paulo Scott MD Primary Care Provider, Referr ing Provider Active Ellen Estrella LASER BEAM MACHINE OPERATOR, LASER BEAM MACHINE OPERATOR-C Attending Provider Active Team Status: Active Member Role Status Dates Dr. Paulo Scott MD Primary Care Provider Active Dr. Raul Casper DO Attending Provid er, Referring Provider, Other Provider Active Team Status: Inactive Member Role Status Dates Dr. Paulo Scott MD Primary Care Provider Active Dr. Stew Garza DO Emergency Provider Active Ui Developer With Angular Js Relationship Specialty Start Date End Date Paulo Scott MD [address] [place], [place] [address] PCP - General 02/20/06 Ui Developer With Angular Js Relationship Specialty Start Date End Date Paulo Scott MD [address] [place], [place] [address] PCP - General 02/20/06 Ui Developer With Angular Js Relationship Specialty Start Date End Date Paulo Scott MD [address] [place] [address] PCP - General 02/20/06 Ui Developer With Angular Js Relationship Specialty Start Date End Date Paulo Scott MD [address] [place] [address] PCP - General 02/20/06 Ui Developer With Angular Js Relationship Specialty Start Date End Date Paulo Scott MD [address] [place] [address] PCP - General 02/20/06 Ui Developer With Angular Js Relationship Specialty Start Date End Date Paulo Scott MD [address] [place] [address] PCP - General 02/20/06 Ui Developer With Angular Js Relationship Specialty Start Date End Date Paulo Scott MD [address] [place] [address] PCP - General 02/20/06 Ui Developer With Angular Js Relationship Specialty Start Date End Date Paulo Scott MD [address] [place] [address] PCP - General 02/20/06 Ui Developer With Angular Js Relationship Specialty Start Date End Date Paulo Scott MD [address] [place] [address] PCP - General 02/20/06 Ui Developer With Angular Js Relationship Specialty Start Date End Date Paulo Scott MD [address] [place] [address] PCP - General 02/20/06 Ui Developer With Angular Js Relationship Specialty Start Date End Date Paulo Scott MD [address] [place] [address] PCP - General 02/20/06 Ui Developer With Angular Js Relationship Specialty Start Date End Date Paulo Scott MD [address] [place] [address] PCP - General 02/20/06 Ui Developer With Angular Js Relationship Specialty Start Date End Date Paulo Scott MD [address] [place] [address] PCP - General 02/20/06 Ui Developer With Angular Js Relationship Specialty Start Date End Date Paulo Scott MD [address] [place] [address] PCP - General 02/20/06 Ui Developer With Angular Js Relationship Specialty Start Date End Date Paulo Scott MD [address] [place] [address] PCP - General 02/20/06 Juan Rodriguez, ELECTRONIC CALIBRATION TECHNICIAN.JEWEL SORTER [address] [place] [address] Cistern Room Operator Internal Medicine 02/23/24 Norman Garcia ELECTRONIC CALIBRATION TECHNICIAN.CHAINMAN [address] [place] [address] Cistern Room Operator Internal Medicine 02/23/24 Ui Developer With Angular Js Relationship Specialty Start Date End Date Paulo Scott MD [address] [place] [address] PCP - General 02/20/06 Juan Rodriguez, ELECTRONIC CALIBRATION TECHNICIAN.JEWEL SORTER [address] [place] [address] [facility] Internal Medicine 02/23/24 Norman Garcia ELECTRONIC CALIBRATION TECHNICIAN.CHAINMAN [address] [place] [address] [facility] Internal [facility] 02/23/24 Ui Developer With Angular Js Relationship Specialty Start Date End Date Paulo Scott MD [address] [place] [address] PCP - General 02/20/06 Juan Rodriguez, ELECTRONIC CALIBRATION TECHNICIAN.JEWEL SORTER [address] [place] [address] [facility] Internal Medicine 02/23/24 Norman Garcia ELECTRONIC CALIBRATION TECHNICIAN.CHAINMAN [address] [place], [place] [address] [facility] Internal Medicine 02/23/24 Team Status: Active Member [...] May 26, 2024 End: May 26, 2024 Team Status: Inactive Member Role Status Dates Dr. Paulo Scott MD Primary Care Provider Active Start: June 18, 2024 End: June 18, 2024 Dr. Paulo Scott MD Referring Provider Active Start: June 18, 2024 End: June 18, 2024 Dr. Callum Trimble DO Attending Provider Active Start: June 18, 2024 End: June 18, 2024 Team Status: Inactive Member Role Status Dates Dr. Paulo Scott MD Primary Care Provider Active Start: June 18, 2024 End: June 18, 2024 Dr. Julian Paul MD Attending Provider Active S tart: June 18, 2024 End: June 18, 2024 Team Status: Inactive Member Role Status Dates Dr. Paulo Scott MD Primary Care Provider Active Start: June 18, 2024 End: June 18, 2024 Dr. Paulo Scott MD Referring Provider Active Start: June 18, 2024 End: June 18, 2024 Dr. Raul Casper DO Attending Provider Active Start: June 18, 2024 End: June 18, 2024 Team Status: Inactive Member Role Status Dates Dr. Paulo Scott MD Primary Care Provider Active Start: August 22, 2024 End: August 22, 2024 Dr. Deepak Mendez MD Referring Provider Active Start: August 22, 2024 End: August 22, 2024 Dr. Deepak Mendez MD Emergency Provider Active Start: August 22, 2024 End: August 22, 2024 Ui Developer With Angular Js Relationship Specialty Start Date End Date Paulo Scott MD [address] [place], [place] [address] PCP - General 02/20/06 Norman Garcia APRN.CNP [address] [place] [address] Cistern Room Operator Internal Medicine 06/08/24 Juan Rodriguez, ELECTRONIC CALIBRATION TECHNICIAN.JEWEL SORTER [address] [facility] [place] [address] [facility] Internal Medicine 08/04/24 Ui Developer With Angular Js Relationship Specialty Start Date End Date Paulo Scott MD [address] [facility] [place] [address] PCP - General 02/20/06 Norman Garcia ELECTRONIC CALIBRATION TECHNICIAN.CHAINMAN [address] [facility] [place] [address] Cistern Room Operator Internal Medicine 06/08/24 Juan Rodriguez, ELECTRONIC CALIBRATION TECHNICIAN.JEWEL SORTER [address] [facility] [place] [address] Cistern Room Operator Internal Medicine 08/04/24 Ui Developer With Angular Js Relationship Specialty Start Date End Date Paulo Scott MD [address] [facility] [place] [address] PCP - General 02/20/06 Norman Garcia, ELECTRONIC CALIBRATION TECHNICIAN.CHAINMAN [address] [facility] [place] [address] Cistern Room Operator Internal Medicine 06/08/24 Juan Rodriguez, ELECTRONIC CALIBRATION TECHNICIAN.JEWEL SORTER [address] [facility] [place] [address] [facility] Internal Medicine 08/04/24 Ui Developer With Angular Js Relationship Specialty Start Date End Date Paulo Scott MD [address] [facility] [place] [address] PCP - General 02/20/06 Norman Garcia ELECTRONIC CALIBRATION TECHNICIAN.CHAINMAN [address] [facility] [address] Cistern Room Operator Internal Medicine 06/08/24 Juan Rodriguez, ELECTRONIC CALIBRATION TECHNICIAN.JEWEL SORTER [address] [place] [address] Cistern Room Operator Internal Medicine 08/04/24 Ui Developer With Angular Js Relationship Specialty Start Date End Date Paulo Scott MD [address] [place] [address] PCP - General 02/20/06 Norman Garcia ELECTRONIC CALIBRATION TECHNICIAN.CHAINMAN [address] [place] [address] Cistern Room Operator Internal Medicine 06/08/24 Juan Rodriguez, ELECTRONIC CALIBRATION TECHNICIAN.JEWEL SORTER [address] [place] [address] Cistern Room Operator Internal Medicine 08/04/24 Ui Developer With Angular Js Relationship Specialty Start Date End Date Paulo Scott MD [address] [place] [address] PCP - General 02/20/06 Norman Garcia, ELECTRONIC CALIBRATION TECHNICIAN.CHAINMAN [address] [place] [address] Cistern Room Operator Internal Medicine 06/08/24 Juan Rodriguez, ELECTRONIC CALIBRATION TECHNICIAN.JEWEL SORTER [address] [place] [address] Cistern Room Operator Internal Medicine 08/04/24 Team Status: Active Member Role/Relationship Status Dates Dr. Paulo Scott MD Primary Care Provider Active Team Status: Inactive Member Role/Relationship Status Dates Dr. Paulo Scott MD Primary Care Provider Active Start: June 18, 2024 End: June 18, 2024 Dr. Paulo Scott MD Referring Provider Active Start: June 18, 2024 End: June 18, 2024 Dr. Callum Trimble DO Attending Provider Active Start: June 18, 2024 End: June 18, 2024 Team Status: Inactive Member Role/Relationship Status Dates Dr. Paulo Scott MD Primary Care Provider Active Start: June 18, 2024 End: June 18, 2024 Dr. Julian Paul MD Attending Provider Active S tart: June 18, 2024 End: June 18, 2024 Team Status: Inactive Member Role/Relationship Status Dates Dr. Paulo Scott MD Primary Care Provider Active Start: June 18, 2024 End: June 18, 2024 Dr. Paulo Scott MD Referring Provider Active Start: June 18, 2024 End: June 18, 2024 Dr. aRul Casper DO Attending Provider Active Start: June 18, 2024 End: June 18, 2024 Team Status: Inactive Member Role/Relationship Status Dates Dr. Paulo Scott MD Primary Care Provider Active Start: August 22, 2024 End: August 22, 2024 Dr. Deepak Mendez MD Attending Provider Active Start: August 22, 2024 End: August 22, 2024 Dr. Deepak Mendez MD Referring Provider Active Start: August 22, 2024 End: August 22, 2024 Dr. Deepak Mendez MD Emergency Provider Active Start: August 22, 2024 End: August 22, 2024 Team Status: Inactive Member Role/Relationship Status Dates Dr. Paulo Scott MD Primary Care Provider Active Start: October 15, 2024 End: October 15, 2024 Dr. Paulo Scott MD Referring Provider Active Start: October 15, 2024 End: October 15, 2024 Gina Mary PA, PA Attending Provider Active Start: October 15, 2024 End: October 15, 2024 Ui Developer With Angular Js Relationship Specialty Start Date End Date Paulo Scott MD [address] [place] [address] PCP - General 02/20/06 Norman Garcia APRN.CHAINMAN [address] [facility] [place] [address] Cistern Room Operator Internal Medicine 06/08/24 Juan Rodriguez APRN.JEWEL SORTER [address] [facility] [place] [address] Cistern Room Operator Internal Medicine 08/04/24 Ui Developer With Angular Js Relationship Specialty Start Date End Date Paulo Scott MD [address] [facility] [place] [address] PCP - General 02/20/06 Norman Garcia APRN.CHAINMAN [address] [facility] [place] [address] Cistern Room Operator Internal Medicine 06/08/24 Juan Rodriguez APRN.JEWEL SORTER [address] [facility] [place] [address] Cistern Room Operator Internal Medicine 08/04/24 Ui Developer With Angular Js Relationship Specialty Start Date End Date Paulo Scott MD [address] [facility] [place] [address] PCP - General 02/20/06 Norman Garcia APRN.CHAINMAN [address] [facility] [place] [address] Cistern Room Operator Internal Medicine 06/08/24 Juan Rodriguez APRN.JEWEL SORTER [address] [facility] [place] [address] Cistern Room Operator Internal Medicine 08/04/24 INFORMATION SOURCE (unrecogn ized section and content) DATE CREATED AUTHOR 10/05/2024 [facility] DATE CREATED AUTHOR AUTHOR'S MARTHA KEITA 10/16/2024 [facility] FOR RECORDS PERTAINING TO PATIENTS WHO ARE [...] BE BASED ON THE PRIMARY CLINICAL RECORDS. [employer] provides no warranty or guarantee of the accuracy or completeness of information in this document.
[2024-12-05 13:29] VITALS: BP 132/83; PULSE 79; O2SAT 100
[2024-12-05 14:00] VITALS: BP 149/71; PULSE 75; O2SAT 98
[2024-12-05 14:34] LABS: Troponin T High Sensitivity 23 ng/L (<=14)
[2024-12-05 14:40] LABS: Mucous, Urine 0 SEEN /hpf (<or=2+); Red Blood Cells-Urine 0 SEEN /hpf (0-5)
[2024-12-05 14:44] LABS: Color, Urine Yellow (Yellow); Glucose, Dipstick 1000 mg/dl (Normal); Ketone-Dipstick Negative (Negative); Leukocyte Esterase-Dipstick 25 /ul (Negative); Nitrite-Dipstick Negative (Negative); Occult Blood-Urine Negative /ul (Negative); Protein-Dipstick Negative (Negative); Specific Gravity, Urine 1.010 (1.002-1.030); Urine Bilirubin Dipstick Negative (Negative)
[2024-12-05 14:51] LABS: Squamous Epithelial Cells - UA 0-5 SEEN /hpf (5-10)
[2024-12-05 15:00] VITALS: BP 128/81; PULSE 82; RESP 16; O2SAT 96
[2024-12-05 15:29] LABS: Anion Gap 15 (5-15); BUN 15 mg/dL (4-19); BUN/Creat Ratio 17.3 RATIO (10-20); Calcium,Total 9.6 mg/dL (7.6-11.0); Carbon Dioxide 21.8 mmol/L (21.0-32.0); Chloride 99 mmol/L (98-108); Estimated Creatinine Clearance 62.56 ml/min (50-250); Glucose 258 mg/dL (70-99); Potassium 4.3 mmol/L (3.3-5.1)
[2024-12-05 15:40] LABS: Troponin T High Sens 2 HR 17 ng/L (<=14)
[2024-12-05 16:16] VITALS: BP 128/81; PULSE 82; RESP 16; TEMP 36.8; O2SAT 96
== END 2024-12-05 16:27 | disposition home or self-care (01) ==
PROVIDERS: Emergency Provider Student in an Organized Health Care Education/Training Program; PCP Internal Medicine; Visit Provider Student in an Organized Health Care Education/Training Program
DX: R55 Syncope and collapse (principal); R11.0 Nausea; M62.81 Muscle weakness (generalized); R79.89 Other specified abnormal findings of blood chemistry; I10 Essential (primary) hypertension; E03.9 Hypothyroidism, unspecified; F41.9 Anxiety disorder, unspecified; K21.9 Gastro-esophageal reflux disease without esophagitis; M79.7 Fibromyalgia; I73.9 Peripheral vascular disease, unspecified; I25.10 Atherosclerotic heart disease of native coronary artery without angina pectoris; Z90.49 Acquired absence of other specified parts of digestive tract; Z86.73 Personal history of transient ischemic attack (TIA), and cerebral infarction without residual deficits; Z87.19 Personal history of other diseases of the digestive system; Z79.82 Long term (current) use of aspirin; Z79.890 Hormone replacement therapy; Z86.718 Personal history of other venous thrombosis and embolism; Z79.899 Other long term (current) drug therapy
CPT/HCPCS: 71046; 80048; 81001; 84484; 85025; 87077; 87086; 87088; 87186; 93005; 96360; 99285; A4216

== ENCOUNTER 2024-12-27 09:47 | Inpatient (IN) | payer MEDICARE, BC, SELFPAY ==
[2024-12-27] VITALS (11 sets, daily range): BP systolic 111–151; BP diastolic 47–86; PULSE 73–91; RESP 13–18; TEMP 36.4–36.8; O2SAT 94–100; BMI 38.1; BMI 36.3
[2024-12-27 10:32] LABS: Hematocrit 21.2 % (37-47); Hemoglobin 7.0 g/dL (12.0-15.0); Immature Granulocytes Count 0.070 X10^3/uL (0.0-0.0); Mean Corp Hgb Conc 33.0 g/dL (32-36); Mean Corpuscular Volume 96.4 fL (81-99); Mean Platelet Vol. 10.2 fl (6.2-12.0); NRBC Flagged by Analyzer 0.2 % (0-5); Platelet Count 251 K/mm3 (150-450); RBC Distribution Width CV 14.1 % (11.6-14.6); RBC Distribution Width SD 47.8 fl (35.1-43.9); Red Blood Count 2.20 M/mm3 (4.2-5.4); White Blood Count 12.0 K/mm3 (4.4-11.0)
--- NOTE | 2024-12-27 11:12 | CT_ITS ---
PROCEDURE: ABDOMEN/PELVIS W IV CONT ONLY 12/27/2024 REASON FOR EXAM: LOWER ABDOMINAL PAIN Diarrhea. TECHNIQUE: Procedure Code: [id number] Modality: CT Procedure: ABDOMEN/PELVIS W IV CONT ONLY Coronal and Sagittal reconstruction series were provided. CONTRAST: Isovue-300 VOLUME: 100 mL One or more dose reduction techniques were used (e.g., Automated exposure control, adjustment of the mA and/or kV according to patient size, use of iterative reconstruction technique. RADIATION DOSE SUMMARY: CTDlvol: 12.8 mGy DLP: 1124.35 mGycm COMPARISON: None FINDINGS: Lung bases: Linear scarring and/or linear atelectasis at the left lung base. Status post Robbie fundoplication and partial gastrectomy. Liver: Diffuse fatty infiltration. Gallbladder: Surgically absent. Spleen: Normal size. Pancreas: Mild increased markings surrounding the head of the pancreas suggestive of early pancreatitis. No fluid collection or pseudocyst is seen at this time. Adrenals: Unremarkable Kidneys: 11 mm cyst seen in the medial midportion of the right kidney. 2.6 cm cyst in the inferior pole of the right kidney. Bladder: Unremarkable Reproductive Organs: Calcified fibroid uterus. Bowel: Bowel pattern is unremarkable. Appendix: The appendix is not identified. There is no inflammatory process identified in the right lower quadrant to suggest appendicitis. Lymph nodes: Unremarkable. Vasculature: The abdominal aorta and IVC are normal. Peritoneum / Retroperitoneum: Unremarkable Bones: Prior intrapedicular screw fixation at the L5-S1 level. Disc space narrowing and anterior listhesis at the L3-L4 level. CT/Abdomen/Pelvis W IV Cont ONLY IMPRESSION: Diffuse fatty infiltration of the liver. Findings suggestive of pancreatitis in the region of the head of the pancreas. Small right renal cysts. Status post subtotal gastrectomy. Reading Location: [facility]
[2024-12-27 11:20] LABS: AST(SGOT) 18 U/L (<=31); Alanine Aminotransfer ALT/SGPT 20 U/L (<=34); Albumin, Serum 3.4 g/dL (3.4-4.8); Alkaline Phosphatase 52 U/L (35-104); Anion Gap 10 (5-15); BUN 23 mg/dL (4-19); BUN/Creat Ratio 34.2 RATIO (10-20); Calcium,Total 8.5 mg/dL (7.6-11.0); Carbon Dioxide 23.0 mmol/L (21.0-32.0); Chloride 103 mmol/L (98-108); Estimated Creatinine Clearance 71.20 ml/min (50-250); Globulin 2.2 g/dL (2.2-4.2); Glucose 378 mg/dL (70-99); Lipase 25 U/L (13-75); Potassium 3.8 mmol/L (3.3-5.1)
--- NOTE | 2024-12-27 11:23 | EX.ED.DYSGE1 ---
HPI History of Present Illness Chief Complaint: Abd Pain Narrative Narrative: Chief complaint and HPI: 74-year-old female with past medical history of GERD, IBS, hypothyroidism, HTN presents for evaluation of lower abdominal pain. Patient states since Friday she has been having lower abdominal pain, nausea, vomiting, dark stools, and lightheadedness. She denies any fever, chills, chest pain, dysuria. States she was recently diagnosed with a UTI which she finished antibiotics. Patient states she has a a family history of colon cancer in which she follows with Dr. Casper. Review of systems: See HPI Medications: As listed on the chart Allergies: As listed on the chart PFSH: Per chart Vital signs: As listed on the chart. Reviewed. Physical exam: Gen: A&O x3, NAD Head: Normocephalic, atraumatic Eyes: No sclera icterus, conjunctiva clear ENT: Dry mucous membranes Neck: Trachea midline CV: RRR, no murmurs, no peripheral edema Resp: Lungs CTA BL, no w/r/c GI: Abd soft, non-distended, tender to palpation in the bilateral lower quadrant, no r/r Rectal: Non-thrombosed external hemorrhoids. Normal tone and sensation. No masses, fluctuance, or tenderness. No pain out of proportion. Musc: Moves all extremities, no deformity Skin: Warm, dry, pale Neuro: Alert, oriented, grossly intact, sensation intact Psych: Cooperative, appropriate mood and affect [facility] Medical History Loss of hearing Wears glasses Wears partial dentures Post-menopausal Anxiety Thyroid disease Ambulates with cane Urinary incontinence Difficulty swallowing Gastric reflux Non-smoker History of echocardiogram History of stress test Seasonal allergies History of edema Cardiology follow-up encounter History of cataract Ganglion cyst Atherosclerotic heart disease of [place] coronary artery without angina pectoris Cholelithiasis with chronic cholecystitis Cholecystitis Pancreatitis, gallstone Gallstones Pancreatitis Dysmetabolic syndrome X DVT (deep venous thrombosis) Barretts esophagus Hypothyroidism Fibromyalgia History of DVT (deep vein thrombosis) Essential hypertension Segmental and somatic dysfunction of pelvic region Segmental and somatic dysfunction of lumbar region Segmental and somatic dysfunction of thoracic region DDD (degenerative disc disease), lumbar History of atrial dilatation PAD (peripheral artery disease) TIA (transient ischemic attack) Osteoarthritis GERD (gastroesophageal reflux disease) IBS (irritable bowel syndrome) Cataracts, bilateral Arthritis Anemia Environmental allergies Home Medications Medication Instructions Recorded Last Taken Type gabapentin 100 mg capsule 300 mg PO QHS PAIN 01/11/14 12/26/24 History diazepam 5 mg tablet 5 mg PO QHS PRN anxiety 01/13/19 12/26/24 History aspirin 81 mg tablet,delayed 81 mg PO DAILY@0800 HEART 02/09/19 12/26/24 History release multivitamin 1 tab PO DAILY SUPPLEMENT 04/08/19 12/26/24 History cholecalciferol (vitamin D3) 125 125 mcg PO DAILY SUPPLEMENT 10/11/19 05/05/22 History mcg (5,000 unit) capsule inhalational spacing device #1 ea 10/11/19 Unknown Rx (BreatheRite MDI Spacer) levothyroxine 88 mcg tablet 88 mcg PO DAILY THYROID 07/26/22 12/27/24 History cranberry fruit concentrate 250 mg 250 mg PO DAILY URINARY HEALTH 01/31/23 12/27/24 History chewable tablet (Azo Cranberry) spironolactone 25 mg tablet 25 mg PO 1700 PRN HTN 08/15/23 12/26/24 History amlodipine 5 mg tablet 5 mg PO DAILY HTN 10/15/24 12/26/24 History lactulose 10 gram/15 mL oral 30 ml PO QHS 12/27/24 12/26/24 History solution Allergy/AdvReac Type Severity Reaction Status Date / Time latex Allergy Unknown PT UNSURE Verified 12/27/24 09:55 OF REACTION adhesive Allergy Unknown Verified 12/27/24 09:55 benzocaine (From Cetacaine) Allergy Unknown Verified 12/27/24 09:55 butamben (From Cetacaine) Allergy Vomiting Verified 12/27/24 09:55 cortisone (Cortisone) Allergy Unknown Verified 12/27/24 09:55 dipyridamole (From Aggrenox) Allergy Unknown Verified 12/27/24 09:55 lansoprazole (From Prevacid) Allergy Unknown Verified 12/27/24 09:55 meclizine Allergy Unknown Verified 12/27/24 09:55 methylprednisolone acetate Allergy Angioedema Verified 12/27/24 09:55 (From Depo-Medrol) metoprolol Allergy Unknown Verified 12/27/24 09:55 omeprazole (From Prilosec) Allergy Unknown Verified 12/27/24 09:55 omeprazole magnesium (From Allergy Unknown Verified 12/27/24 09:55 Prilosec) oxybutynin chloride (From Allergy Unknown Verified 12/27/24 09:55 Ditropan) povidone-iodine (From Allergy Unknown Verified 12/27/24 09:55 Betadine) sulfamethoxazole (From Allergy Unknown Verified 12/27/24 09:55 Bactrim) tegaserod (From Zelnorm) Allergy Hives Verified 12/27/24 09:55 tegaserod hydrogen maleate Allergy Unknown Verified 12/27/24 09:55 (From Zelnorm) tetracaine (From Cetacaine) Allergy Unknown Verified 12/27/24 09:55 tolterodine tartrate (From Allergy Unknown Verified 12/27/24 09:55 Detrol) trimethoprim (From Bactrim) Allergy Unknown Verified 12/27/24 09:55 lisinopril AdvReac Intermediate Angioedema Verified 12/27/24 09:55 adhesive tape AdvReac Rash Verified 12/27/24 09:55 codeine AdvReac Unknown Verified 12/27/24 09:55 mirabegron (From Myrbetriq) AdvReac Other Verified 12/27/24 09:55 tizanidine AdvReac Other Verified 12/27/24 09:55 vaccine adjuvant system, AdvReac Rash Verified 12/27/24 09:55 [id number] liposomal (From Shingrix (PF)) varicella-zoster virus AdvReac Rash Verified 12/27/24 09:55 glycoprotein E, recombinant (From Shingrix (PF)) Family History Mother Cancer Celiac disease Presence of permanent cardiac pacemaker Father Cancer Sister Hypertension Other Colon cancer Myocardial infarction Surgical History History of back surgery History of cholecystectomy Hx of dilation and curettage Hx of cardiac cath History of Robbie fundoplication S/P gastroplasty History of laparotomy Hx of tubal ligation hx of filter removal Hx of superior vena cava filter placement Hx of local excision of skin lesion History of esophagogastroduodenoscopy (EGD) Hx of colonoscopy H/O hernia repair History of tonsillectomy Social History housing: house Smoking Status: Never smoker alcohol intake: never substance use type: does not use caffeine: Yes Type: coffee Number of servings: 2 what type of physical activity do you participate in: walking frequency: 3-4 times per week EXAM Physical Exam Const Vital Signs: 12/27/24 09:52 12/27/24 11:47 12/27/24 13:17 Temperature 97.6 F L 98.0 F Temperature Source Temporal Oral Pulse Rate 91 81 75 Respiratory Rate 16 17 18 Blood Pressure 151/86 H 119/55 L Blood Pressure Mean 107 76 Blood Pressure Source Monitor Blood Pressure Position Supine Blood Pressure Location Right Arm Pulse Ox 100 97 96 Oxygen Delivery Method Room Air Room Air 12/27/24 13:32 12/27/24 14:21 12/27/24 14:32 Temperature 98.1 F 98.2 F 98.2 F Temperature Source Oral Oral Temporal Pulse Rate 74 73 78 Respiratory Rate 13 16 15 Blood Pressure 111/57 L 126/62 H 117/70 Blood Pressure Mean 75 83 85 Blood Pressure Source Monitor Monitor Monitor Blood Pressure Position Semi-Fowlers Semi-Fowlers Blood Pressure Location Pulse Ox 94 99 98 Oxygen Delivery Method Room Air Room Air Room Air MDM MDM MDM Narrative Medical decision making narrative: 74-year-old female with past medical history of GERD, IBS, hypothyroidism, HTN presents for evaluation of lower abdominal pain. Patient states since Friday she has been having lower abdominal pain, nausea, vomiting, dark stools, and lightheadedness. States she was recently diagnosed with a UTI which she finished antibiotics. On chart review, patient had colonoscopy by Dr. Casper in April 2023. Found a polyp in the cecum. She has colonoscopies every 5 years. She also had an EGD at that time that showed short segment Sarmiento's esophagus. She has a Toupet fundoplication. The wrap appears loose. Differential diagnosis includes but is not limited to GI bleed, diverticulosis, diverticulitis, PUD, electrolyte abnormality, dehydration, anemia. NS bolus, Zofran, morphine ordered for symptoms. Abdominal pain workup ordered including CT abdomen pelvis. CBC with mild leukocytosis of 12. Patient has anemia with hemoglobin of 7. In November her hemoglobin was 14.5. Patient will require transfusion. Patient was typed and crossed. 1 unit ordered. Platelets unremarkable. INR unremarkable. CMP shows BUN of 23 with a creatinine of 0.68. Possible upper GI bleed. IV Protonix ordered. No transaminitis. Lipase unremarkable. Lactic acid 2.6. Patient receiving fluids. UA positive for bacteria but not a clean sample. Urine culture sent. CT abdomen pelvis shows diffuse fatty infiltration of the liver. Findings suggestive of pancreatitis in the region of the head of the pancreas. This does not correspond with her lipase. Patient not tender in the epigastrium. Small right renal cyst. Status post subtotal gastrectomy. Patient symptoms are likely secondary to GI bleed. Dr. Casper consulted. Agrees with admission and endoscopy. Spoke with the hospitalist service who accepted admission. Recommendation to start Protonix drip. Patient was updated of all the results and the plan. She confirmed understand the plan. Impression: 1. GI bleed 2. Acute anemia secondary to #1 3. Lactic acidosis secondary to #1 Lab Data Labs: Laboratory Results - last 24 hr 12/27/24 12/27/24 12/27/24 10:10 11:03 11:23 WBC 12.0 H RBC 2.20 L Hgb 7.0 L Hct 21.2 L MCV 96.4 MCH 31.8 MCHC 33.0 RDW Std Deviation 47.8 H RDW Coeff of Ronnie 14.1 Plt Count 251 MPV 10.2 Immature Gran % (Auto) 0.600 Neut % (Auto) 67.3 Lymph % (Auto) 21.4 [place] % (Auto) 6.4 Eos % (Auto) 3.8 Baso % (Auto) 0.5 Absolute Neuts (auto) 8.1 H Absolute Lymphs (auto) 2.57 Nucleated RBC % 0.2 PT 13.6 INR 1.0 APTT 22.6 L Sodium 135 Potassium 3.8 Chloride 103 Carbon Dioxide 23.0 Anion Gap 10 BUN 23 H Creatinine 0.68 L Estim Creat Clear Calc 71.20 Est GFR (MDRD) Non-Af 91 BUN/Creatinine Ratio 34.2 H Glucose 378 H Lactic Acid 2.6 H* Calcium 8.5 Total Bilirubin 0.23 AST 18 ALT 20 Alkaline Phosphatase 52 Total Protein 5.6 L Albumin 3.4 Globulin 2.2 Albumin/Globulin Ratio 1.5 Lipase 25 Urine Color Yellow Urine Clarity Sl. Cloudy Urine pH 6.0 Ur Specific [place] 1.020 Urine Protein 15 H Urine Glucose (UA) 1000 H Urine Ketones Negative Urine Occult Blood Negative Urine Nitrite Negative Urine Bilirubin Negative Urine Urobilinogen Normal Ur Leukocyte Esterase 100 H Urine RBC 0-5 SEEN Urine WBC 5-10 SEEN Ur Squamous Epith Cells 5-10 SEEN Urine Bacteria 1+ Urine Mucus RARE Blood Type A POSITIVE Antibody Screen NEGATIVE Crossmatch See Detail Radiography Diagnostic Testing: Clinical Impression(s) from Imaging Studies Abdomen/Pelvis CT 12/27/24 11:12 IMPRESSION: Diffuse fatty infiltration of the liver. Findings suggestive of pancreatitis in the region of the head of the pancreas. Small right renal cysts. Status post subtotal gastrectomy. Reading Location: [facility]- Discharge Plan Disposition Disposition: Acute Care Hospital [facility] Discharge Date/Time: 12/27/24 15:14
[2024-12-27] MEDS: 0.9% Normal Saline (1000mL) 1,000 ML 999 ML IV (11:34)
[2024-12-27 11:42] LABS: Partial Thromboplast Time 22.6 Seconds (24.1-36.2); Prothrombin Time (Protime)PT. 13.6 SECONDS (11.7-14.9)
[2024-12-27 11:43] LABS: Color, Urine Yellow (Yellow); Glucose, Dipstick 1000 mg/dl (Normal); Ketone-Dipstick Negative (Negative); Leukocyte Esterase-Dipstick 100 /ul (Negative); Nitrite-Dipstick Negative (Negative); Occult Blood-Urine Negative /ul (Negative); Protein-Dipstick 15 mg/dl (Negative); Specific Gravity, Urine 1.020 (1.002-1.030); Urine Bilirubin Dipstick Negative (Negative)
[2024-12-27 11:57] LABS: Mucous, Urine RARE /hpf (<or=2+); Red Blood Cells-Urine 0-5 SEEN /hpf (0-5); Squamous Epithelial Cells - UA 5-10 SEEN /hpf (5-10)
--- NOTE | 2024-12-27 14:40 | PCM.HP.STD ---
HPI - General General Date of Admission: 12/27/24 Date of Service: 12/27/24 Chief Complaint: Melena/abdominal pain HPI Narrative EILEEN CHRISTINE, is a 74 F who presented to the emergency department [facility] on 12/28/2019 for chief complaint of abdominal pain and dark tarry stools. Patient states her symptoms started on Hank night. She been having some lower abdominal pain, some nausea, vomiting without coffee grounds, and dark melanotic stools with lightheadedness and shortness of breath with exertion. She denies any chest pain. She has a family history of colon cancer and follows with Dr. Casper she is on aspirin 81 mg daily. She states she has had 7 colonoscopies in 7 EGD's previously she has a remote history of Robbie fundoplication. She was in the emergency department on 12/05/2024 and found to have a urinary tract infection was treated Keflex at that time. Her hemoglobin then was 14.5. Vital signs at presentation showed temperature of 97.6, heart rate 91, blood pressure is 151/86 and pulse ox was 100% on room air. CBC showed mild leukocytosis with a white count of 12 she did not have a differential. Her hemoglobin was now 7 from 14.5 about 3 weeks ago. Coags were normal. Chemistry panel showed elevated BUN/creatinine ratio with a BUN of 23 and serum creatinine of 0.68. At her previous ED visit her BUN was 15 and her creatinine was 0.89. She had a mild lactic acidosis when she came in at 2.6. Her blood sugar is markedly elevated at 378. She does not appear to be on any medication for diabetes. Her UA is somewhat suggestive of infection with positive leuk esterase, white cells and 1+ bacteria. CT abdomen pelvis shows diffuse fatty liver infiltration, findings suggestive of pancreatitis in the region of the head of the pancreatitis however the patient is asymptomatic with regards to abdominal pain in the epigastrium or left upper quadrant and small right renal cyst. Case was discussed with Dr. Casper with whom she follows on a regular basis. The patient was placed on Protonix drip and will be admitted to PCU for an expected hospitalization greater than 2 midnights. [facility] Medical History Loss of hearing Wears glasses Wears partial dentures Post-menopausal Anxiety Thyroid disease Ambulates with cane Urinary incontinence Difficulty swallowing Gastric reflux Non-smoker History of echocardiogram History of stress test Seasonal allergies History of edema Cardiology follow-up encounter History of cataract Ganglion cyst Atherosclerotic heart disease of [place] coronary artery without angina pectoris Cholelithiasis with chronic cholecystitis Cholecystitis Pancreatitis, gallstone Gallstones Pancreatitis Dysmetabolic syndrome X DVT (deep venous thrombosis) Barretts esophagus Hypothyroidism Fibromyalgia History of DVT (deep vein thrombosis) Essential hypertension Segmental and somatic dysfunction of pelvic region Segmental and somatic dysfunction of lumbar region Segmental and somatic dysfunction of thoracic region DDD (degenerative disc disease), lumbar History of atrial dilatation PAD (peripheral artery disease) TIA (transient ischemic attack) Osteoarthritis GERD (gastroesophageal reflux disease) IBS (irritable bowel syndrome) Cataracts, bilateral Arthritis Anemia Environmental allergies Home Medications Medication Instructions Recorded Last Taken Type gabapentin 100 mg capsule 300 mg PO QHS PAIN 01/11/14 12/26/24 History diazepam 5 mg tablet 5 mg PO QHS PRN anxiety 01/13/19 12/26/24 History aspirin 81 mg tablet,delayed 81 mg PO DAILY@0800 HEART 02/09/19 12/26/24 History release multivitamin 1 tab PO DAILY SUPPLEMENT 04/08/19 12/26/24 History cholecalciferol (vitamin D3) 125 125 mcg PO DAILY SUPPLEMENT 10/11/19 05/05/22 History mcg (5,000 unit) capsule inhalational spacing device #1 ea 10/11/19 Unknown Rx (BreatheRite MDI Spacer) levothyroxine 88 mcg tablet 88 mcg PO DAILY THYROID 07/26/22 12/27/24 History cranberry fruit concentrate 250 mg 250 mg PO DAILY URINARY HEALTH 01/31/23 12/27/24 History chewable tablet (Azo Cranberry) spironolactone 25 mg tablet 25 mg PO 1700 PRN HTN 08/15/23 12/26/24 History amlodipine 5 mg tablet 5 mg PO DAILY HTN 10/15/24 12/26/24 History lactulose 10 gram/15 mL oral 30 ml PO QHS 12/27/24 12/26/24 History solution Allergy/AdvReac Type Severity Reaction Status Date / Time latex Allergy Unknown PT UNSURE Verified 12/27/24 09:55 OF REACTION adhesive Allergy Unknown Verified 12/27/24 09:55 benzocaine (From Cetacaine) Allergy Unknown Verified 12/27/24 09:55 butamben (From Cetacaine) Allergy Vomiting Verified 12/27/24 09:55 cortisone (Cortisone) Allergy Unknown Verified 12/27/24 09:55 dipyridamole (From Aggrenox) Allergy Unknown Verified 12/27/24 09:55 lansoprazole (From Prevacid) Allergy Unknown Verified 12/27/24 09:55 meclizine Allergy Unknown Verified 12/27/24 09:55 methylprednisolone acetate Allergy Angioedema Verified 12/27/24 09:55 (From Depo-Medrol) metoprolol Allergy Unknown Verified 12/27/24 09:55 omeprazole (From Prilosec) Allergy Unknown Verified 12/27/24 09:55 omeprazole magnesium (From Allergy Unknown Verified 12/27/24 09:55 Prilosec) oxybutynin chloride (From Allergy Unknown Verified 12/27/24 09:55 Ditropan) povidone-iodine (From Allergy Unknown Verified 12/27/24 09:55 Betadine) sulfamethoxazole (From Allergy Unknown Verified 12/27/24 09:55 Bactrim) tegaserod (From Zelnorm) Allergy Hives Verified 12/27/24 09:55 tegaserod hydrogen maleate Allergy Unknown Verified 12/27/24 09:55 (From Zelnorm) tetracaine (From Cetacaine) Allergy Unknown Verified 12/27/24 09:55 tolterodine tartrate (From Allergy Unknown Verified 12/27/24 09:55 Detrol) trimethoprim (From Bactrim) Allergy Unknown Verified 12/27/24 09:55 lisinopril AdvReac Intermediate Angioedema Verified 12/27/24 09:55 adhesive tape AdvReac Rash Verified 12/27/24 09:55 codeine AdvReac Unknown Verified 12/27/24 09:55 mirabegron (From Myrbetriq) AdvReac Other Verified 12/27/24 09:55 tizanidine AdvReac Other Verified 12/27/24 09:55 vaccine adjuvant system, AdvReac Rash Verified 12/27/24 09:55 AS01B liposomal (From Shingrix (PF)) varicella-zoster virus AdvReac Rash Verified 12/27/24 09:55 glycoprotein E, recombinant (From Shingrix (PF)) Family History Mother Cancer Celiac disease Presence of permanent cardiac pacemaker Father Cancer Sister Hypertension Other Colon cancer Myocardial infarction Surgical History History of back surgery History of cholecystectomy Hx of dilation and curettage Hx of cardiac cath History of Robbie fundoplication S/P gastroplasty History of laparotomy Hx of tubal ligation hx of filter removal Hx of superior vena cava filter placement Hx of local excision of skin lesion History of esophagogastroduodenoscopy (EGD) Hx of colonoscopy H/O hernia repair History of tonsillectomy Social History housing: house Smoking Status: Never smoker alcohol intake: never substance use type: does not use caffeine: Yes Type: coffee Number of servings: 2 what type of physical activity do you participate in: walking frequency: 3-4 times per week ROS Constitutional Constitutional: Reports fatigue and weakness; Denies anorexia, change in weight, chills, fever(s), malaise, night sweats or other Eyes Eyes: Denies blurry vision, change in eye color, change in vision, discharge from eye(s), double vision, erythema, eye pain, loss of vision or other ENT HEENT: Denies abnormal hearing, dysphagia, ear pain, epistaxis, headache(s), hearing loss, nasal congestion, nasal discharge, post nasal drip, sinus pressure, sore throat or other Cardiovascular Cardiovascular: Denies chest pain, claudication, dyspnea on exertion, edema, lightheadedness, orthopnea, palpitations, paroxysmal nocturnal dyspnea, rapid heart rate, syncope or other Respiratory/Chest Respiratory/Chest: Reports shortness of breath with exertion and wheezing; Denies cough, dyspnea, excessive phlegm production, hemoptysis, productive cough, shortness of breath at rest or other Gastrointestinal Gastrointestinal: Reports abdominal pain, melena, nausea and vomiting; Denies coffee ground emesis, constipation, diarrhea, dyspepsia, hematemesis, hematochezia, loose stools or other Genitourinary Genitourinary: Reports urinary frequency; Denies burning urination, difficulty urinating, dysuria, hematuria, nocturia, urinary hesitancy, urinary incontinence, urinary urgency or other Musculoskeletal Musculoskeletal: Denies arthralgias, back pain, joint pain, joint stiffness, joint swelling, myalgias, neck pain or other Neurologic Neurologic: Denies abnormal gait, abnormal speech, confusion, disequilibrium, dizziness, focal weakness, headache(s), numbness, paresthesias, seizure-like activity, seizures, syncope, tingling, tremor(s) or other Psychiatric Psychiatric: Denies anxiety, depression, homicidal ideation, suicidal ideation or other Endocrine Endocrinology: Reports polydipsia and polyuria; Denies change in body appearance, cold intolerance, excessive sweating, heat intolerance or other Hematologic/Lymphatic Hematologic/Lymphatic: Denies anemia, easy bleeding, easy bruising, lymphadenopathy or other Allergic/Immunologic Allergic/Immunologic: Denies rhinitis, hives, eczemia, asthma or other Vital Signs Vital Signs Vital Signs: 12/27/24 09:52 12/27/24 11:47 12/27/24 13:17 Temperature 97.6 F L 98.0 F Temperature Source Temporal Oral Pulse Rate 91 81 75 Respiratory Rate 16 17 18 Blood Pressure 151/86 H 119/55 L Blood Pressure Mean 107 76 Blood Pressure Source Monitor Blood Pressure Position Supine Blood Pressure Location Right Arm Pulse Ox 100 97 96 Oxygen Delivery Method Room Air Room Air 12/27/24 13:32 12/27/24 14:21 Temperature 98.1 F 98.2 F Temperature Source Oral Oral Pulse Rate 74 73 Respiratory Rate 13 16 Blood Pressure 111/57 L 126/62 H Blood Pressure Mean 75 83 Blood Pressure Source Monitor Monitor Blood Pressure Position Semi-Fowlers Semi-Fowlers Blood Pressure Location Pulse Ox 94 99 Oxygen Delivery Method Room Air Room Air Weight Weight: 100.7 kg Body Mass Index (BMI) 38.1 Physical Exam Const alert, oriented x3, no apparent distress and well nourished; Negative for average body habitus or healthy appearing Constitutional Narrative: Obese, elderly, white female, sitting up in bed, spouse at bedside, nursing at bedside, appears comfortable, nontoxic General Appearance: cooperative HEENT normocephalic, head/scalp atraumatic, hearing grossly normal bilaterally and moist oral mucous membranes HEENT Narrative: Mallampati 4, no thrush Eyes Negative for conjunctivae normal Eyes Narrative: No scleral icterus, conjunctival pallor bilaterally Neck no lymphadenopathy and supple Neck Narrative: Neck is short and thick, trachea midline Resp normal respiratory effort, no retractions, no use of accessory muscles and clear to auscultation bilaterally Auscultation: Negative for rales, rhonchi or wheezes Cardio regular rate, regular rhythm, S1 normal heart sound, S2 normal heart sound, no murmurs, no rub, no gallops and no clicks GI normal to inspection, nondistended, normoactive bowel sounds, soft to palpation and non-tender Extremity no clubbing, cyanosis or edema Extremity Narrative: 2+ pedal and radial pulses bilaterally Skin skin turgor normal, no jaundice, no petechiae and no mottling Skin Narrative: Skin is pale Neuro moves all extremities and no focal motor deficits Speech: speech normal Psych affect normal Psych Narrative: very pleasant eye contact is good patient interacts appropriately Results Lab / Micro Data 12/27/24 10:10 12/27/24 10:10 Labs: Laboratory Results - last 24 hr 12/27/24 10:10: WBC 12.0 H, RBC 2.20 L, Hgb 7.0 L, Hct 21.2 L, MCV 96.4, MCH 31.8, MCHC 33.0, RDW Std Deviation 47.8 H, RDW Coeff of Ronnie 14.1, Plt Count 251, MPV 10.2, Immature Gran % (Auto) 0.600, Neut % (Auto) 67.3, Lymph % (Auto) 21.4, Stokes % (Auto) 6.4, Eos % (Auto) 3.8, Baso % (Auto) 0.5, Absolute Neuts (auto) 8.1 H, Absolute Lymphs (auto) 2.57, Nucleated RBC % 0.2, Sodium 135, Potassium 3.8, Chloride 103, Carbon Dioxide 23.0, Anion Gap 10, BUN 23 H, Creatinine 0.68 L, Estim Creat Clear Calc 71.20, Est GFR (MDRD) Non-Af 91, BUN/Creatinine Ratio 34.2 H, Glucose 378 H, Calcium 8.5, Total Bilirubin 0.23, AST 18, ALT 20, Alkaline Phosphatase 52, Total Protein 5.6 L, Albumin 3.4, Globulin 2.2, Albumin/Globulin Ratio 1.5, Lipase 25, Blood Type A POSITIVE, Antibody Screen NEGATIVE, Crossmatch See Detail 12/27/24 11:03: PT 13.6, INR 1.0, APTT 22.6 L, Lactic Acid 2.6 H* 12/27/24 11:23: Urine Color Yellow, Urine Clarity Sl. Cloudy, Urine pH 6.0, Ur Specific [place] 1.020, Urine Protein 15 H, Urine Glucose (UA) 1000 H, Urine Ketones Negative, Urine Occult Blood Negative, Urine Nitrite Negative, Urine Bilirubin Negative, Urine Urobilinogen Normal, Ur Leukocyte Esterase 100 H, Urine RBC 0-5 SEEN, Urine WBC 5-10 SEEN, Ur Squamous Epith Cells 5-10 SEEN, Urine Bacteria 1+, Urine Mucus RARE Micro: Microbiology 12/27/24 11:23 Stool Stool Occult Blood (PIA) - Final Occult Blood Positive Imaging Radiology Impression Abdomen/Pelvis CT 12/27/24 11:12 IMPRESSION: Diffuse fatty infiltration of the liver. Findings suggestive of pancreatitis in the region of the head of the pancreas. Small right renal cysts. Status post subtotal gastrectomy. Reading Location: [place] [id number] Assessment & Plan Assessment/Plan (1) GI bleed: (2) Acute anemia: (3) Lactic acidosis: (4) Adverse effects of medication: (5) Leukocytosis: (6) Abnormal urinalysis: (7) Hyperglycemia: PLAN: Plan Acute anemia - 3 weeks ago hemoglobin was 14.5 with a hemoglobin of 7 today - Cycle hemoglobin - Elevated BUN to creatinine ratio so suspect upper GI bleed - Protonix bolus and drip initiated - Clear liquids with no reds and then n.p.o. after midnight - Transfuse 1 unit packed red blood cells -Hold aspirin - GI consultation- Friend aware per ED GI bleed - Suspect upper with elevated BUN/creatinine ratio - Protonix drip - Transfusion as above - Clear liquids without reds and then n.p.o. 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 and restart when appropriate - Continue GI follow-up Nonobstructive CAD/essential hypertension/PVD - Mild CAD per cath in 2007 - Hold aspirin - Hold home Aldactone for now - Continue home amlodipine Neuropathy - Continue home gabapentin - patient states that this has been problematic for about the last year - Blood sugars are markedly elevated and suspect patient is diabetic but is undiagnosed Asthma - On no chronic medication at this time - Had previously been on budesonide - Has not seen pulmonary medicine in over a year GERD/history of Sarmiento's esophagus - Previous Robbie fundoplication - PPI as above History of DVT - Remote - Not currently anticoagulated Obesity - BMI 36.4 - Complicates treatment, prognosis, outcomes - Suspect patient may have some baseline CARLINE and should have an outpatient polysomnography DVT prophylaxis - SCDs - Chemoprophylaxis contraindicated due to current GI bleed CODE STATUS - Full code as verified at the time of admission Charges/Coding Visit Charges Inpatient E&M: 04198 Init Hosp L3
[2024-12-27] MEDS: Pantoprazole Sodium 40 MG in 0.9% Normal Saline (100mL MB+) 100 ML 300 MG IV (14:45)
--- NOTE | 2024-12-27 14:50 | CASEMGMT ---
Care Management Face to Face with patient for initial transition planning/care coordination assessment in the ED. This press writer introduced self and role at [facility]. Patient alert and oriented. Patient willing to participate in assessment and is able to answer all questions appropriately. Patient's , Robin, at bedside. Care providers, pharmacy, and demographics verified. Admitting Diagnosis: GI bleed, Acute anemia, Lactic acidosis Other diagnosis history: GERD, IBS, hypothyroidism, HTN PCP: [facility] Specialists: Friend, gastro. Eliseo, podiatry. Basali, pain management. New professional shopper that patient could not recall name. Preferred Pharmacy: [facility]. Usually by mail through [facility]. Insurance: Medicare A B (primary). [place] (secondary). Prescription Benefit: yes Living Will/HPOA: daughter, Erlinda Black. LNOK: , Robin. DaughterErlinda. Living Arrangements: lives with in a 1 story home with 2 steps to enter. Reports being mostly independent with ADLs/IADLs, though reports occasionally needing help with ADLs due to TIAs and neuropathy causing some left leg weakness. 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 Patient denies any further needs or concerns at this time. Disposition Plan: admission to acute; RN CM/SW to follow for discharge planning needs that may arise. Yareli Tenorio, OCEANOLOGIST, STOCK SHIPPER
[2024-12-27 15:30] LABS: Reflex Lactate? Y
[2024-12-27] MEDS: Pantoprazole Sodium 80 MG in 0.9% Normal Saline (100mL Bag) 80 ML 10 MG CONT INF ×2 (17:09→23:46)
[2024-12-27 17:20] LABS: Hematocrit 25.4 % (37-47); Hemoglobin 8.2 g/dL (12.0-15.0)
--- NOTE | 2024-12-27 17:52 | EX.PCM.CON.G ---
HPI Consult Data Date of Consult: 12/27/24 HPI Narrative Reason for Consultation: GI bleed HPI Narrative: EILEEN CHRISTINE, is a 74 F who presented today for the evaluation of lower abdominal pain. Patient states since Friday she has been having lower abdominal pain, nausea, vomiting, dark stools, and lightheadedness. In the ED she was noted to have a hemoglobin dropped down from 14.5 down to 7. She does take aspirin on a daily basis. She was recently seen in the clinic after ED visit with nausea. Patient was found to have a UTI and was started on cephalexin. This has caused her to become constipated. She did not like taking the cephalexin and feels her bowels have normalized. 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 She endorses daily heartburn and will drink milk for her heartburn and does not take a proton pump inhibitor (PPI) despite having a history of Sarmiento's esophagus. FORMERLY [facility], 1928–1983 Medical History Loss of hearing Wears glasses Wears partial dentures Post-menopausal Anxiety Thyroid disease Ambulates with cane Urinary incontinence Difficulty swallowing Gastric reflux Non-smoker History of echocardiogram History of stress test Seasonal allergies History of edema Cardiology follow-up encounter History of cataract Ganglion cyst Atherosclerotic heart disease of kaibab coronary artery without angina pectoris Cholelithiasis with chronic cholecystitis Cholecystitis Pancreatitis, gallstone Gallstones Pancreatitis Dysmetabolic syndrome X DVT (deep venous thrombosis) Barretts esophagus Hypothyroidism Fibromyalgia History of DVT (deep vein thrombosis) Essential hypertension Segmental and somatic dysfunction of pelvic region Segmental and somatic dysfunction of lumbar region Segmental and somatic dysfunction of thoracic region DDD (degenerative disc disease), lumbar History of atrial dilatation PAD (peripheral artery disease) TIA (transient ischemic attack) Osteoarthritis GERD (gastroesophageal reflux disease) IBS (irritable bowel syndrome) Cataracts, bilateral Arthritis Anemia Environmental allergies Home Medications Medication Instructions Recorded Last Taken Type gabapentin 100 mg capsule 300 mg PO QHS PAIN 01/11/14 12/26/24 History diazepam 5 mg tablet 5 mg PO QHS PRN anxiety 01/13/19 12/26/24 History aspirin 81 mg tablet,delayed 81 mg PO DAILY@0800 HEART 02/09/19 12/26/24 History release multivitamin 1 tab PO DAILY SUPPLEMENT 04/08/19 12/26/24 History cholecalciferol (vitamin D3) 125 125 mcg PO DAILY SUPPLEMENT 10/11/19 05/05/22 History mcg (5,000 unit) capsule inhalational spacing device #1 ea 10/11/19 Unknown Rx (BreatheRite MDI Spacer) levothyroxine 88 mcg tablet 88 mcg PO DAILY THYROID 07/26/22 12/27/24 History cranberry fruit concentrate 250 mg 250 mg PO DAILY URINARY HEALTH 01/31/23 12/27/24 History chewable tablet (Azo Cranberry) spironolactone 25 mg tablet 25 mg PO 1700 PRN HTN 08/15/23 12/26/24 History amlodipine 5 mg tablet 5 mg PO DAILY HTN 10/15/24 12/26/24 History lactulose 10 gram/15 mL oral 30 ml PO QHS 12/27/24 12/26/24 History solution Allergy/AdvReac Type Severity Reaction Status Date / Time latex Allergy Unknown PT UNSURE Verified 12/27/24 09:55 OF REACTION adhesive Allergy Unknown Verified 12/27/24 09:55 benzocaine (From Cetacaine) Allergy Unknown Verified 12/27/24 09:55 butamben (From Cetacaine) Allergy Vomiting Verified 12/27/24 09:55 cortisone (Cortisone) Allergy Unknown Verified 12/27/24 09:55 dipyridamole (From Aggrenox) Allergy Unknown Verified 12/27/24 09:55 lansoprazole (From Prevacid) Allergy Unknown Verified 12/27/24 09:55 meclizine Allergy Unknown Verified 12/27/24 09:55 methylprednisolone acetate Allergy Angioedema Verified 12/27/24 09:55 (From Depo-Medrol) metoprolol Allergy Unknown Verified 12/27/24 09:55 omeprazole (From Prilosec) Allergy Unknown Verified 12/27/24 09:55 omeprazole magnesium (From Allergy Unknown Verified 12/27/24 09:55 Prilosec) oxybutynin chloride (From Allergy Unknown Verified 12/27/24 09:55 Ditropan) povidone-iodine (From Allergy Unknown Verified 12/27/24 09:55 Betadine) sulfamethoxazole (From Allergy Unknown Verified 12/27/24 09:55 Bactrim) tegaserod (From Zelnorm) Allergy Hives Verified 12/27/24 09:55 tegaserod hydrogen maleate Allergy Unknown Verified 12/27/24 09:55 (From Zelnorm) tetracaine (From Cetacaine) Allergy Unknown Verified 12/27/24 09:55 tolterodine tartrate (From Allergy Unknown Verified 12/27/24 09:55 Detrol) trimethoprim (From Bactrim) Allergy Unknown Verified 12/27/24 09:55 lisinopril AdvReac Intermediate Angioedema Verified 12/27/24 09:55 adhesive tape AdvReac Rash Verified 12/27/24 09:55 codeine AdvReac Unknown Verified 12/27/24 09:55 mirabegron (From Myrbetriq) AdvReac Other Verified 12/27/24 09:55 tizanidine AdvReac Other Verified 12/27/24 09:55 vaccine adjuvant system, AdvReac Rash Verified 12/27/24 09:55 [id number] liposomal (From Shingrix (PF)) varicella-zoster virus AdvReac Rash Verified 12/27/24 09:55 glycoprotein E, recombinant (From Shingrix (PF)) Family History Mother Cancer Celiac disease Presence of permanent cardiac pacemaker Father Cancer Sister Hypertension Other Colon cancer Myocardial infarction Surgical History History of back surgery History of cholecystectomy Hx of dilation and curettage Hx of cardiac cath History of Robbie fundoplication S/P gastroplasty History of laparotomy Hx of tubal ligation hx of filter removal Hx of superior vena cava filter placement Hx of local excision of skin lesion History of esophagogastroduodenoscopy (EGD) Hx of colonoscopy H/O hernia repair History of tonsillectomy Social History housing: house Smoking Status: Never smoker alcohol intake: never substance use type: does not use caffeine: Yes Type: coffee Number of servings: 2 what type of physical activity do you participate in: walking frequency: 3-4 times per week ROS Constitutional Constitutional: Denies fatigue, fever(s), poor appetite, weight gain or weight loss Gastrointestinal Gastrointestinal: Denies belching, bloating, change in bowel habits, change in stool character, chewing difficulty, coffee ground emesis, constipation, cramping, diarrhea, dyspepsia, dysphagia, early satiety, excessive flatus, fecal incontinence, heartburn, hematemesis, hematochezia, hemorrhoids, loose stools, melena, nausea, odynophagia, rectal bleeding, tenesmus, vomiting or weight changes Physical Exam Const alert, oriented x3, no apparent distress and healthy appearing General Appearance: cooperative GI normal to inspection, nondistended, normoactive bowel sounds, soft to palpation, non-tender and non-distended Percussion: normal to percussion Rectal Exam: deferred Lab / Micro Data 12/27/24 16:40 12/27/24 10:10 Labs: Laboratory Results - last 24 hr 12/27/24 10:10: WBC 12.0 H, RBC 2.20 L, Hgb 7.0 L, Hct 21.2 L, MCV 96.4, MCH 31.8, MCHC 33.0, RDW Std Deviation 47.8 H, RDW Coeff of Ronnie 14.1, Plt Count 251, MPV 10.2, Immature Gran % (Auto) 0.600, Neut % (Auto) 67.3, Lymph % (Auto) 21.4, [place] % (Auto) 6.4, Eos % (Auto) 3.8, Baso % (Auto) 0.5, Absolute Neuts (auto) 8.1 H, Absolute Lymphs (auto) 2.57, Nucleated RBC % 0.2, Sodium 135, Potassium 3.8, Chloride 103, Carbon Dioxide 23.0, Anion Gap 10, BUN 23 H, Creatinine 0.68 L, Estim Creat Clear Calc 71.20, Est GFR (MDRD) Non-Af 91, BUN/Creatinine Ratio 34.2 H, Glucose 378 H, Hemoglobin A1c 7.8 H, Calcium 8.5, Total Bilirubin 0.23, AST 18, ALT 20, Alkaline Phosphatase 52, Total Protein 5.6 L, Albumin 3.4, Globulin 2.2, Albumin/Globulin Ratio 1.5, Lipase 25, Blood Type A POSITIVE, Antibody Screen NEGATIVE, Crossmatch See Detail 12/27/24 11:03: PT 13.6, INR 1.0, APTT 22.6 L, Lactic Acid 2.6 H* 12/27/24 11:23: Urine Color Yellow, Urine Clarity Sl. Cloudy, Urine pH 6.0, Ur Specific [place] 1.020, Urine Protein 15 H, Urine Glucose (UA) 1000 H, Urine Ketones Negative, Urine Occult Blood Negative, Urine Nitrite Negative, Urine Bilirubin Negative, Urine Urobilinogen Normal, Ur Leukocyte Esterase 100 H, Urine RBC 0-5 SEEN, Urine WBC 5-10 SEEN, Ur Squamous Epith Cells 5-10 SEEN, Urine Bacteria 1+, Urine Mucus RARE 12/27/24 16:40: Hgb 8.2 L, Hct 25.4 L 12/27/24 17:08: POC Glucose 190 H Micro: Microbiology 12/27/24 11:23 Stool Stool Occult Blood (PIA) - Final Occult Blood Positive Imaging Radiology Impression Abdomen/Pelvis CT 12/27/24 11:12 IMPRESSION: Diffuse fatty infiltration of the liver. Findings suggestive of pancreatitis in the region of the head of the pancreas. Small right renal cysts. Status post subtotal gastrectomy. Reading Location: [facility]- Assessment & Plan Assessment/Plan (1) GI bleed: (2) Acute anemia: PLAN: ASSESSMENT GI bleed: This is supported by the patient's report of dark stools (melena), a significant drop in hemoglobin, and symptoms of lightheadedness. The use of daily aspirin is a major risk factor for GI bleeding. Anemia (severe): The marked drop in hemoglobin from 14.5 to 7.0 indicates severe anemia, likely secondary to GI blood loss. This accounts for her lightheadedness. Sarmiento's esophagus: The patient's history of Sarmiento's esophagus and ongoing heartburn, without being on a PPI, is a relevant risk factor for esophageal and gastric issues, which could be related to her GI bleed. Aspirin-induced gastrointestinal ulceration/bleeding: Her daily aspirin use is a likely cause of the acute GI bleeding, exacerbated by the lack of a protective PPI for her Sarmiento's esophagus. Constipation: While the patient feels her bowels have normalized, the recent constipation following cephalexin may have contributed to GI discomfort. However, the current presentation of dark stools and significant blood loss is more concerning. Differential Diagnoses: Peptic Ulcer Disease: Ulcers, possibly from aspirin use, can cause GI bleeding. Acute Diverticular Bleed: Diverticula in the colon can cause significant bleeding. Angiodysplasia: Abnormal blood vessels in the GI tract can lead to bleeding. Malignancy: A GI malignancy, such as colon cancer, should be ruled out given the patient's age and symptoms. PLAN Hospital Admission: The patient's significant drop in hemoglobin necessitates immediate hospitalization for stabilization and further workup. Diagnostic Procedures: Upper endoscopy and colonoscopy are indicated to identify and treat the source of the GI bleed. Medication Management: Hold aspirin immediately. Start a proton pump inhibitor to help with the bleeding and manage her Sarmiento's esophagus. Transfusion: Likely require a blood transfusion to address severe anemia. Monitor hemoglobin levels closely. Charges/Coding Visit Charges Inpatient E&M: 00006 Init Hosp L3
[2024-12-27] MEDS: 0.9% Saline Lock 10 ML Syringe IV (20:47)
[2024-12-27 21:43] LABS: Hematocrit 24.2 % (37-47); Hemoglobin 7.9 g/dL (12.0-15.0)
[2024-12-27] MEDS: Lactated Ringers 1,000 ML 75 ML IV (23:46)
[2024-12-28] VITALS (11 sets, daily range): BP systolic 111–135; BP diastolic 53–70; PULSE 82–89; RESP 16–20; TEMP 36.7–37.2; O2SAT 92–96; BMI 39.4
[2024-12-28 04:31] LABS: Hematocrit 21.2 % (37-47); Hemoglobin 7.2 g/dL (12.0-15.0); Immature Granulocytes Count 0.040 X10^3/uL (0.0-0.0); Mean Corp Hgb Conc 34.0 g/dL (32-36); Mean Corpuscular Volume 93.0 fL (81-99); Mean Platelet Vol. 9.9 fl (6.2-12.0); NRBC Flagged by Analyzer 0 % (0-5); Platelet Count 217 K/mm3 (150-450); RBC Distribution Width CV 16.3 % (11.6-14.6); RBC Distribution Width SD 53.9 fl (35.1-43.9); Red Blood Count 2.28 M/mm3 (4.2-5.4); White Blood Count 9.5 K/mm3 (4.4-11.0)
[2024-12-28 04:48] LABS: Prothrombin Time (Protime)PT. 14.5 SECONDS (11.7-14.9)
[2024-12-28 04:49] LABS: Partial Thromboplast Time 23.3 Seconds (24.1-36.2)
[2024-12-28 05:22] LABS: AST(SGOT) 14 U/L (<=31); Alanine Aminotransfer ALT/SGPT 15 U/L (<=34); Albumin, Serum 2.9 g/dL (3.4-4.8); Alkaline Phosphatase 46 U/L (35-104); Anion Gap 6 (5-15); BUN 12 mg/dL (4-19); BUN/Creat Ratio 20.1 RATIO (10-20); Calcium,Total 8.0 mg/dL (7.6-11.0); Carbon Dioxide 24.6 mmol/L (21.0-32.0); Chloride 108 mmol/L (98-108); Estimated Creatinine Clearance 72.52 ml/min (50-250); Globulin 2.1 g/dL (2.2-4.2); Glucose 185 mg/dL (70-99); Magnesium 2.2 mg/dL (1.5-2.2); Potassium 4.1 mmol/L (3.3-5.1)
--- NOTE | 2024-12-28 05:55 | EKG12_ITS ---
Test Reason : PRE OP Blood Pressure : */* mmHG Vent. Rate : 89 BPM Atrial Rate : 89 BPM P-R Int : 172 ms QRS Dur : 68 ms QT Int : 382 ms P-R-T Axes : 12 -42 -7 degrees QTcB Int : 464 ms Sinus rhythm with occasional and consecutive Premature ventricular complexes and Fusion complexes Left axis deviation Low voltage QRS Inferior infarct , age undetermined Cannot rule out Anterior infarct Abnormal ECG When compared with ECG of 05-Dec-2024 13:19, Significant changes have occurred Confirmed by DOUG VARGAS, ESSENCE ([id number]), commercial production editor ASHLEY HOUSE ([id number]) on 12/29/2024 8:25:24 AM Referred By: Confirmed By: ESSENCE CAMACHO MD
--- NOTE | 2024-12-28 08:19 | PN.HOSP_ITS ---
Reason for Visit Chief Complaint: Melena/abdominal pain Subjective Subjective Patient is a 74-year-old lady who presented to the emergency department with abdominal pain with associated nausea and vomiting as well as melenic stools. Patient was found to be anemic with hemoglobin of 7.0 admitted to monitored bed for further management Objective Data Objective Data Vital Signs: Vital Signs Temp Pulse Resp BP Pulse Ox O2 Del Method 98.6 F 84 18 125/60 H 93 Room Air 12/28/24 04:50 12/28/24 04:50 12/28/24 04:50 12/28/24 04:50 12/28/24 04:50 12/28/24 04:50 Oxygen Delivery Method Room Air Weight: 104.1 kg Body Mass Index (BMI) 39.4 Intake & Output: Intake and Output for Last 24 Hours 12/26/24 12/27/24 12/28/24 23:59 23:59 23:59 Intake Total 582.42 / 582.42 Balance 582.42 / 582.42 Lab / Micro Data 12/28/24 04:10 12/28/24 04:10 Labs: Laboratory Results - last 24 hr 12/27/24 10:10: WBC 12.0 H, RBC 2.20 L, Hgb 7.0 L, Hct 21.2 L, MCV 96.4, MCH 31.8, MCHC 33.0, RDW Std Deviation 47.8 H, RDW Coeff of Ronnie 14.1, Plt Count 251, MPV 10.2, Immature Gran % (Auto) 0.600, Neut % (Auto) 67.3, Lymph % (Auto) 21.4, [place] % (Auto) 6.4, Eos % (Auto) 3.8, Baso % (Auto) 0.5, Absolute Neuts (auto) 8.1 H, Absolute Lymphs (auto) 2.57, Nucleated RBC % 0.2, Sodium 135, Potassium 3.8, Chloride 103, Carbon Dioxide 23.0, Anion Gap 10, BUN 23 H, Creatinine 0.68 L, Estim Creat Clear Calc 71.20, Est GFR (MDRD) Non-Af 91, BUN/Creatinine Ratio 34.2 H, Glucose 378 H, Hemoglobin A1c 7.8 H, Calcium 8.5, Total Bilirubin 0.23, AST 18, ALT 20, Alkaline Phosphatase 52, Total Protein 5.6 L, Albumin 3.4, Globulin 2.2, Albumin/Globulin Ratio 1.5, Lipase 25, Blood Type A POSITIVE, Antibody Screen NEGATIVE, Crossmatch See Detail 12/27/24 11:03: PT 13.6, INR 1.0, APTT 22.6 L, Lactic Acid 2.6 H* 12/27/24 11:23: Urine Color Yellow, Urine Clarity Sl. Cloudy, Urine pH 6.0, Ur Specific [place] 1.020, Urine Protein 15 H, Urine Glucose (UA) 1000 H, Urine Ketones Negative, Urine Occult Blood Negative, Urine Nitrite Negative, Urine Bilirubin Negative, Urine Urobilinogen Normal, Ur Leukocyte Esterase 100 H, Urine RBC 0-5 SEEN, Urine WBC 5-10 SEEN, Ur Squamous Epith Cells 5-10 SEEN, Urine Bacteria 1+, Urine Mucus RARE 12/27/24 15:30: Lactic Acid 2.0 12/27/24 16:40: Hgb 8.2 L, Hct 25.4 L 12/27/24 17:08: POC Glucose 190 H 12/27/24 21:31: Hgb 7.9 L, Hct 24.2 L 12/27/24 23:48: POC Glucose 177 H 12/28/24 04:10: WBC 9.5, RBC 2.28 L, Hgb 7.2 L, Hct 21.2 L, MCV 93.0, MCH 31.6, MCHC 34.0, RDW Std Deviation 53.9 H, RDW Coeff of Ronnie 16.3 H, Plt Count 217, MPV 9.9, Immature Gran % (Auto) 0.400, Neut % (Auto) 55.3, Lymph % (Auto) 28.6, [place] % (Auto) 7.9, Eos % (Auto) 7.2 H, Baso % (Auto) 0.6, Absolute Neuts (auto) 5.2, Absolute Lymphs (auto) 2.70, Nucleated RBC % 0, PT 14.5, INR 1.1, APTT 23.3 L, Sodium 139, Potassium 4.1, Chloride 108, Carbon Dioxide 24.6, Anion Gap 6, BUN 12, Creatinine 0.58 L, Estim Creat Clear Calc 72.52, Est GFR (MDRD) Non-Af 95, B UN/Creatinine Ratio 20.1 H, Glucose 185 H, Calcium 8.0, Phosphorus 2.9, Magnesium 2.2, Total Bilirubin 0.33, AST 14, ALT 15, Alkaline Phosphatase 46, T otal Protein 5.0 L, Albumin 2.9 L, Globulin 2.1 L, Albumin/Globulin Ratio 1.4, T SH 6.330 H 12/28/24 06:30: POC Glucose 186 H Micro: Microbiology 12/27/24 11:23 Stool Stool Occult Blood (PIA) - Final Occult Blood Positive Radiography Diagnostic Testing: Radiology Impression Abdomen/Pelvis CT 12/27/24 11:12 IMPRESSION: Diffuse fatty infiltration of the liver. Findings suggestive of pancreatitis in the region of the head of the pancreas. Small right renal cysts. Status post subtotal gastrectomy. Reading Location: [place] [id number] Physical Exam Narrative GENERAL: cooperative HEENT: Atraumatic; normocephalic EYES; Anicteric, Normal Conjunctiva NECK; supple, normal thyroid, RESPIRATORY: Diminished to auscultation CARDIOVASCULAR: Regular S1 S2, GI: soft, normoactive bowel sounds, : No Renal angle tenderness; EXTREMITIES: No edema, no clubbing, MUSCULOSKELETAL: no muscle wasting NEURO: Awake; no lateralizing signs. SKIN: No Rash PSYCH; Flat affect Eyes conjunctivae normal Assessment & Plan Assessment/Plan (1) GI bleed: PLAN: Plan Patient is a 74-year-old lady who presented to the emergency department with abdominal pain with associated nausea and vomiting as well as melenic stools. Patient was found to be anemic with hemoglobin of 7.0 admitted to monitored bed for further management 1. Anemia – Secondary to acute blood loss anemia suspected to be secondary to upper GI bleed exacerbated by the use of aspirin. Patient hemoglobin on admission was 7.0 patient was transfused with 1 unit PRBC started on Protonix drip after bolus admitted to monitored bed H&H ordered consult placed to GI 2. Acute cystitis – Patient urinalysis was abnormal and consistent with UTI started on ceftriaxone 3. Hypothyroidism – Patient is on levothyroxine home dose continued 4. Peripheral arterial disease – Patient is on antiplatelet held on admission 5. New onset diabetes mellitus type 2 – Patient presented with hyperglycemia hemoglobin A1c ordered came back at 7.8. Subsequently placed on Accu-Cheks ACHS as well as 1800 ADA diet 6. Degenerative joint disease – Pain meds as needed 7. Hepatosteatosis – Consult was placed to GI on admission 8. Hypertension – Blood pressure controlled, home medications continued with dose adjustment as needed 9. Mild intermittent asthma – Currently not in exacerbation aerosol treatments as needed 10. GERD/history of Sarmiento's esophagus - Previous Robbie fundoplication; PPI as above 11 remote history of DVT – Patient was treated appropriately 12. Class II obesity with BMI of 39.4 – Complicating care weight loss advised 13. DVT prophylaxis – Bilateral SCDs Time spent in the patient's overall evaluation,decision-making process, review of diagnostic data, adjustment of management, discussion with other providers, nursing nursing and ancillary staff involved in patient's care documentation, 52. Minutes Charges/Coding Visit Charges Inpatient E&M: 96169 [facility] Hosp L3
[2024-12-28] MEDS: FLU VACCINE HIGH DOSE 25-26(65YR UP) 180 MCG/0.5 ML SYRINGE IM (09:18)
[2024-12-28 10:32] LABS: Hematocrit 25.4 % (37-47); Hemoglobin 8.3 g/dL (12.0-15.0)
--- NOTE | 2024-12-28 10:44 | RAD_ITS ---
PROCEDURE: CHEST 1 VIEW (PORTABLE) 12/28/2024 REASON FOR EXAM: LS - CRACKLES TECHNIQUE: Frontal view of the chest. COMPARISON: December 05, 2024 FINDINGS: Hardware: EKG lead Heart: Mildly enlarged. Lungs: Subsegmental atelectasis left lower lobe. Sliding hiatus hernia with air-fluid level. No pneumothorax or pleural effusion. Bones: The bones are unremarkable. RAD/Chest 1 View (Portable) IMPRESSION: 1. Hiatus hernia. 2. Mild cardiac enlargement. Subsegmental atelectasis left lower lobe. Reading Location: [id number]
[2024-12-28] MEDS: Pantoprazole Sodium 80 MG in 0.9% Normal Saline (100mL Bag) 80 ML 10 MG CONT INF (11:11)
--- NOTE | 2024-12-28 14:46 | CHAPLAIN ---
Type of Pastoral Visit _x__ Initial Visit ___ Follow-up Visit ___ On-call Visit ___ General Patient Visit ___ Spiritual Assessment ___ Family Conference ___ Bereavement ___ Rapid Response ___ Code Blue ___ Other (describe below) Pastoral Care Referral From _x__ Patient ___ Family ___ Nurse ___ Physician ___ Apartment Leasing Consultant ___ Wash Driller ___ Other (describe below) Sacrament/Intervention _x__ Active listening ___ Anointing ___ Restorationism ___ Bereavement ___ Communion ___ Kiarra exploration ___ _x__ Life review _x__ Prayer ___ Reconciliation ___ Sacrament of Sick _x__ Supportive presence ___ Wedding ___ Other (describe below) Pastoral Comments at first attempt the patient was on the phone and requested a return visit; on second visit attempt the patient was off the phone and resting quietly; pt explains that she is to have procedure but that it has been delayed several times; apology made for this inconvenience; pt is very talkative and gives lots of family information, connections to people that "you may know"; pt gives background information on her life and how she met her ; pt is anxious to have her procedure done and "get what I need completed"; pt has a caodaism but rarely attends services due to work on Sundays; pt welcomes prayer and presence; spouse is expected to come in to hospital later today but "he has health needs too"
--- NOTE | 2024-12-28 17:42 | PCM.PRE.AN2 ---
ASA Classification* ASA Classification ASA Classification: 3 Assessment & Plan Anesthesia* Anesthesia Assessment Anesthesia Assessment: Discussed sedation and/or anesthesia options, risks, benefits, and alternatives with patient/parents/legal guardian/POA. Questions invited. The patient/parents/legal guardian/POA seems to understand and agrees to proceed with anesthesia plan. Reviewed the physical assessment, medical history, allergy history and patient home medications list prior to surgery/procedure/anesthetic and documented any changes. Performed airway and anesthesia risk assessments. Anesthesia Type Anesthesia Type: MAC History Source History Obtained from:: Patient and Chart Anesthesia Focused Assessment* Temperature: 98.9 F Pulse Rate: 85 Blood Pressure: 135/60 Respiratory Rate: 20 Pulse Ox: 94 Oxygen Delivery Method: Room Air Airway Assessment Mouth opens: >3 cm Mallampati Score: IV Teeth Condition: Missing (Multiple missing incisors on the top. Nothing loose.) Neck Range of motion (ROM): Limited ROM (Slight Decrease) Labs Anesthesia Preop lab: CBC WBC, (4.4-11.0) 9.5 K/mm3 Today, 04:10 RBC, (4.2-5.4) 2.28 M/mm3 L Today, 04:10 Hgb, (12.0-15.0) 8.3 g/dL L Today, 10:08 Hct, (37-47) 25.4 % L Today, 10:08 Plt Count, (150-450) 217 K/mm3 Today, 04:10 CHEMISTRY Potassium, (3.3-5.1) 4.1 mmol/L Today, 04:10 Sodium, (133-145) 139 mmol/L Today, 04:10 Magnesium, (1.5-2.2) 2.2 mg/dL Today, 04:10 Phosphorus, (2.7-4.5) 2.9 mg/dL Today, 04:10 BUN, (4-19) 12 mg/dL Today, 04:10 Creatinine, (0.70-1.20) 0.58 mg/dL L Today, 04:10 Glucose, (70-99) 185 mg/dL H Today, 04:10 POC Glucose, (74-106) 166 mg/dL H Today, 16:10 TSH, (0.300-4.200) 6.330 uIU/mL H Today, 04:10 COAG PT, (11.7-14.9) 14.5 SECONDS Today, 04:10 Pre-Assessment Diagnosis/Proposed Procedure Planned Operative Procedure(s): EGD. 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 When Was Last Pacemaker Check QUESTION #4 FULL TEXT: You/Your Family Experience fever (hyperthermia) with Anesthesia Last Oral Intake Last Oral intake: Last Oral Intake NPO since 00:00 12/28/24 09:22 Meds taken in AM with sips of Yes 12/28/24 09:22 water? Meds patient instructed to norvasc 12/28/24 09:22 take am of surgery PONV PONV - licensed tax consultant: PONV - licensed tax consultant Female HX of Motion Sickness HX of N/V After Surgery Non-Smoker Duration of Surgery greater than 60 minutes Number of Risk Factors PONV Score Height & Weight Height & Weight: Anesthesia: Height & Weight Height 5 ft 4 in 12/28/24 09:22 Weight: 104.1 kg 12/28/24 09:22 Body Mass Index (BMI) 39.4 12/28/24 09:22 Respiratory Assessment Respiratory Assessment - licensed tax consultant: Respiratory Tract Infection Hx - licensed tax consultant Hx Respiratory Tract Infection No 12/28/24 09:24 STOP Sleep Apnea STOP Sleep Apnea - licensed tax consultant: STOP Sleep Apnea - licensed tax consultant Hx Hypertension Yes 12/27/24 15:34 Hx Sleep Apnea No 12/27/24 15:34 CPAP BIPAP Do you snore loudly (louder Yes 12/27/24 15:34 than talking or can be heard Do you often feel tired/ Yes 12/27/24 15:34 fatigued/ sleepy during daytime? Has anyone observed you stop No 12/27/24 15:34 breathing during sleep? STOP Results Positive 12/27/24 15:34 QUESTION #5 FULL TEXT : Do you snore loudly (louder than talking or can be heard through closed doors)? 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 Specify any problems Hx of Preganancy in last 3 N/A 12/27/24 15:34 Months Nurse Filling Out Transfusion AHAGGERTY 12/27/24 15:34 & Questions: Date: 12/27/24 12/27/24 15:34 Time: 15:37 12/27/24 15:34 Patient unable to answer at this time (ie. confused, unrespo /Reproduction History /Reproductive History - licensed tax consultant: /Reproductive Hx- licensed tax consultant Hx Now No 12/28/24 09:24 Gestational Age (in weeks): EDC: Hx Hx Para Hx Section SAB No 12/28/24 04:53 Active Medications Active Medications: Current Medications Generic Name Dose Route Start Last Admin Trade Name Freq PRN Reason Stop Dose Admin Amlodipine Besylate 5 mg 12/28/24 10:00 12/28/24 08:35 Amlodipine 5 Mg Tablet PO 5 mg DAILY SELAM Administration Protocol Diazepam 5 mg 12/27/24 15:21 Diazepam 5 Mg Tablet PO QHS PRN ANXIETY Gabapentin 300 mg 12/27/24 22:00 12/27/24 20:46 Gabapentin 300 Mg Capsule PO 300 mg QHS SELAM Administration Glucagon 1 mg 12/28/24 10:15 Glucagon 1 Mg/Ml Syringe IM X1 PRN Hypoglycemia Protocol Pantoprazole Sodium 80 mg/ 100 mls @ 10 mls/hr 12/27/24 14:30 12/28/24 17:20 Sodium Chloride CONT INF 0 mls/hr Q10H SELAM Infusion Ceftriaxone Sodium 1 gm in 50 mls @ 100 mls/hr 12/27/24 15:21 12/28/24 09:45 Rocephin IV Infused Q24 SELAM Infusion Dextrose 250 mls @ 0 mls/hr 12/28/24 10:15 Dextrose 10%-Water IV .Q0M PRN HYPOGLYCEMIA Protocol As Directed Sodium Chloride 250 mls @ 15 mls/hr 12/28/24 13:23 IV .[id number] PRN Saline Flush Sodium Chloride 250 mls @ 15 mls/hr 12/28/24 13:23 IV .[id number] PRN Additional IVPB Infusion Insulin Glargine 10 unit 12/29/24 08:00 Insulin Glargine-Yfgn 100 Unit/Ml Pen SC DAILY SELAM Insulin Human Lispro 0 unit 12/27/24 18:00 12/28/24 16:14 Insulin Lispro 100 Unit/Ml Insuln.Pen SC Not Given Q6 [facility] Protocol Levothyroxine Sodium 88 mcg 12/28/24 06:00 12/28/24 04:57 Levothyroxine 88 Mcg Tablet PO Not Given DAILY@0600 [facility] Morphine Sulfate 2 - 4 mg 12/27/24 15:21 12/27/24 20:46 Morphine 2 Mg/Ml Syringe IV 2 mg Q3H PRN PRN Administration Pain Score 6-10 Multivitamins 1 tablet 12/28/24 08:00 12/28/24 09:08 Multivitamins,Therapeutic Tablet PO Not Given DAILYCM [facility] Ondansetron HCl 4 mg 12/27/24 15:21 Ondansetron 4 Mg/2 Ml Vial IV Q8H PRN PRN NAUSEA/VOMITING Sodium Chloride 10 - 40 ml 12/27/24 15:47 12/27/24 20:47 0.9% Saline Lock 10 Ml Syringe IV 10 ml UD PRN Administration SALINE FLUSH PFSH Medical History Loss of hearing Wears glasses Wears partial dentures Post-menopausal Anxiety Thyroid disease Ambulates with cane Urinary incontinence Difficulty swallowing Gastric reflux Non-smoker History of echocardiogram History of stress test Seasonal allergies History of edema Cardiology follow-up encounter History of cataract Ganglion cyst Atherosclerotic heart disease of [place] coronary artery without angina pectoris Cholelithiasis with chronic cholecystitis Cholecystitis Pancreatitis, gallstone Gallstones Pancreatitis Dysmetabolic syndrome X DVT (deep venous thrombosis) Barretts esophagus Hypothyroidism Fibromyalgia History of DVT (deep vein thrombosis) Essential hypertension Segmental and somatic dysfunction of pelvic region Segmental and somatic dysfunction of lumbar region Segmental and somatic dysfunction of thoracic region DDD (degenerative disc disease), lumbar History of atrial dilatation PAD (peripheral artery disease) TIA (transient ischemic attack) Osteoarthritis GERD (gastroesophageal reflux disease) IBS (irritable bowel syndrome) Cataracts, bilateral Arthritis Anemia Environmental allergies Home Medications Medication Instructions Recorded Last Taken Type gabapentin 100 mg capsule 300 mg PO QHS PAIN 01/11/14 12/26/24 History diazepam 5 mg tablet 5 mg PO QHS PRN anxiety 01/13/19 12/26/24 History aspirin 81 mg tablet,delayed 81 mg PO DAILY@0800 HEART 02/09/19 12/26/24 History release multivitamin 1 tab PO DAILY SUPPLEMENT 04/08/19 12/26/24 History cholecalciferol (vitamin D3) 125 125 mcg PO DAILY SUPPLEMENT 10/11/19 05/05/22 History mcg (5,000 unit) capsule inhalational spacing device #1 ea 10/11/19 Unknown Rx (BreatheRite MDI Spacer) levothyroxine 88 mcg tablet 88 mcg PO DAILY THYROID 07/26/22 12/27/24 History cranberry fruit concentrate 250 mg 250 mg PO DAILY URINARY HEALTH 01/31/23 12/27/24 History chewable tablet (Azo Cranberry) spironolactone 25 mg tablet 25 mg PO 1700 PRN HTN 08/15/23 12/26/24 History amlodipine 5 mg tablet 5 mg PO DAILY HTN 10/15/24 12/26/24 History lactulose 10 gram/15 mL oral 30 ml PO QHS 12/27/24 12/26/24 History solution Allergy/AdvReac Type Severity Reaction Status Date / Time latex Allergy Unknown PT UNSURE Verified 12/27/24 09:55 OF REACTION adhesive Allergy Unknown Verified 12/27/24 09:55 benzocaine (From Cetacaine) Allergy Unknown Verified 12/27/24 09:55 butamben (From Cetacaine) Allergy Vomiting Verified 12/27/24 09:55 cortisone (Cortisone) Allergy Unknown Verified 12/27/24 09:55 dipyridamole (From Aggrenox) Allergy Unknown Verified 12/27/24 09:55 lansoprazole (From Prevacid) Allergy Unknown Verified 12/27/24 09:55 meclizine Allergy Unknown Verified 12/27/24 09:55 methylprednisolone acetate Allergy Angioedema Verified 12/27/24 09:55 (From Depo-Medrol) metoprolol Allergy Unknown Verified 12/27/24 09:55 omeprazole (From Prilosec) Allergy Unknown Verified 12/27/24 09:55 omeprazole magnesium (From Allergy Unknown Verified 12/27/24 09:55 Prilosec) oxybutynin chloride (From Allergy Unknown Verified 12/27/24 09:55 Ditropan) povidone-iodine (From Allergy Unknown Verified 12/27/24 09:55 Betadine) sulfamethoxazole (From Allergy Unknown Verified 12/27/24 09:55 Bactrim) tegaserod (From Zelnorm) Allergy Hives Verified 12/27/24 09:55 tegaserod hydrogen maleate Allergy Unknown Verified 12/27/24 09:55 (From Zelnorm) tetracaine (From Cetacaine) Allergy Unknown Verified 12/27/24 09:55 tolterodine tartrate (From Allergy Unknown Verified 12/27/24 09:55 Detrol) trimethoprim (From Bactrim) Allergy Unknown Verified 12/27/24 09:55 lisinopril AdvReac Intermediate Angioedema Verified 12/27/24 09:55 adhesive tape AdvReac Rash Verified 12/27/24 09:55 codeine AdvReac Unknown Verified 12/27/24 09:55 mirabegron (From Myrbetriq) AdvReac Other Verified 12/27/24 09:55 tizanidine AdvReac Other Verified 12/27/24 09:55 vaccine adjuvant system, AdvReac Rash Verified 12/27/24 09:55 AS01B liposomal (From Shingrix (PF)) varicella-zoster virus AdvReac Rash Verified 12/27/24 09:55 glycoprotein E, recombinant (From Shingrix (PF)) Family History Mother Cancer Celiac disease Presence of permanent cardiac pacemaker Father Cancer Sister Hypertension Other Colon cancer Myocardial infarction Surgical History History of back surgery History of cholecystectomy Hx of dilation and curettage Hx of cardiac cath History of Robbie fundoplication S/P gastroplasty History of laparotomy Hx of tubal ligation hx of filter removal Hx of superior vena cava filter placement Hx of local excision of skin lesion History of esophagogastroduodenoscopy (EGD) Hx of colonoscopy H/O hernia repair History of tonsillectomy Social History housing: house Smoking Status: Never smoker alcohol intake: never substance use type: does not use caffeine: Yes Type: coffee Number of servings: 2 what type of physical activity do you participate in: walking frequency: 3-4 times per week Review of Systems (Anesthesia) ROS Narrative System reviewed and no additional complaints, except as documented.
[2024-12-28] MEDS: Lactated Ringers 1,000 ML 15 ML IV (17:57)
--- NOTE | 2024-12-28 18:30 | EGD_PTH ---
PATIENT: EILEEN CHRISTINE LOC: [facility] U#:[id number] AGE/SX: 74/F ROOM: [facility] RE12/27/[address]: Dr. Clifton Wells MD : 1950 BED: 1 DIS: 01/03/2025 SPEC #: [id number] RECD: 12/29/24 07:39 STATUS: KEKE REQ #: [id number] IAN: 12/28/24 18:[address]: Raul Casper DEPT: SURGICAL PATHOLOGY RECD BY: Tristian Mcnamara ENTERED: 12/29/24 10:12 SP TYPE: EGD BIOPSY OT DR: MD Dr. Shelia Devlin DO Dr. Liza D Talampas, MD Dr. Prakash Chand, MD Heather Evans, NP-C Jacquelin Odell CUT OFF SAWYER LOGTaranC LEONEL Esposito Tissues: A - Esophagus, NOS Procedures: Surgery Specimen Level IV HEADER OPERATION: EGD with biopsy and hemostasis PRE-OP DIAGNOSIS: Anemia, esophageal ulcer TISSUE SUBMITTED: A- Esophageal ulcer biopsy MICROSCOPIC DIAGNOSIS A. Esophagus, "ulcer", biopsy: * Columnar mucosa with goblet cell metaplasia - see note. * Squamous mucosa with reactive changes. * Detached fragment of fibrinopurulent debris suggestive of ulcer. * Fungal organisms present. Note: The diagnosis depends on the location of the biopsy and the extent of the mucosal irregularity. If the biopsy originates from the tubular esophagus and the mucosal irregularity extends at least 1 cm above the top of the gastric folds, this represents Sarmiento mucosa. If the biopsy originates from the gastric cardia and/or the mucosal irregularity is less than 1 cm in extent, this represents intestinal metaplasia. MICROSCOPIC DESCRIPTION Slides are reviewed. GROSS DESCRIPTION A. Received in fixative is one container labeled with the patient's name and designated "Esophageal ulcer biopsy." The specimen consists of four irregular fragments of chou tissue that measure <0.1 to 0.5 cm. Smallest fragment unlikely to survive processing. The specimen is totally submitted in one cassette. GA 12/29/2024 CPT:01634
--- NOTE | 2024-12-28 19:15 | OP.PROVAT_ITS ---
12/28/2024 Miryam Riojas [address] [place] [address] Re : Upper GI endoscopy procedure for Keshia Rojas Dear Dr. Riojas This procedure was performed on Saturday, December 28, 2024. My impressions and recommendations are as follows: Impressions : - LA Grade C erosive esophagitis with bleeding. Biopsied. Treated with a heater probe. - Zakia-Quezada tear. Treated with a heater probe. - Hiatal hernia. - A fundoplication was found. The wrap appears loose. - No gross lesions in the entire stomach. - No gross lesions in the entire examined duodenum. Recommendations : - Return patient to [facility] for ongoing care. - Resume regular diet. - Use Protonix (pantoprazole) 40 mg PO BID for 3 months. - Continue present medications. My findings are described in the full procedure note, which is enclosed. If I can be of further assistance, please feel free to contact me at . Sincerely, Raul Casper, 12/28/2024 7:15:07 PM This report has been signed electronically.
--- NOTE | 2024-12-28 19:15 | OP.EGD_ITS ---
Patient Name: Keshia Rojas Procedure Date: 12/28/2024 6:52 PM Date of : 1950 Age: 74 Procedure: Upper GI endoscopy Indications: Iron deficiency anemia, Dysphagia Providers: Raul Casper DO Medicines: Monitored Anesthesia Care Patient Profile: This is a 74 year old female. Refer to note in patient chart for documentation of history and physical. Patient has symptoms of acute epigastric abdominal pain, acute dysphagia, acute dyspepsia and acute nausea. Complications: No immediate complications. Procedure: Pre-Anesthesia Assessment: - Prior to the procedure, a History and Physical was performed, and patient medications and allergies were reviewed. The patient is competent. The risks and benefits of the procedure and the sedation options and risks were discussed with the patient. All questions were answered and informed consent was obtained. Patient identification and proposed procedure were verified by the physician in the pre-procedure area. Mental Status Examination: alert and oriented. Airway Examination: normal oropharyngeal airway and neck mobility. Respiratory Examination: clear to auscultation. CV Examination: normal. Prophylactic Antibiotics: The patient does not require prophylactic antibiotics. Prior Anticoagulants: The patient has taken no anticoagulant or antiplatelet agents except for NSAID medication. ASA Grade Assessment: II - A patient with mild systemic disease. After reviewing the risks and benefits, the patient was deemed in satisfactory condition to undergo the procedure. The anesthesia plan was to use monitored anesthesia care (MAC). Immediately prior to administration of medications, the patient was re-assessed for adequacy to receive sedatives. The heart rate, respiratory rate, oxygen saturations, blood pressure, adequacy of pulmonary ventilation, and response to care were monitored throughout the procedure. The physical status of the patient was re-assessed after the procedure. After obtaining informed consent, the endoscope was passed under direct vision. Throughout the procedure, the patient's blood pressure, pulse, and oxygen saturations were monitored continuously. The Endoscope was introduced through the mouth, and advanced to the fourth part of the duodenum. Small bowel enteroscopy was deemed necessary. The upper GI endoscopy was accomplished without difficulty. The patient tolerated the procedure well. Scope In: 6:57:09 PM Scope Out: 7:06:50 PM Total Procedure Duration Time 0 hours 9 minutes 41 seconds Findings: LA Grade C (one or more mucosal breaks continuous between tops of 2 or more mucosal folds, less than 75% circumference) esophagitis with bleeding was found 34 to 40 cm from the incisors. Biopsies were taken with a cold forceps for histology. Coagulation for hemostasis using heater probe was successful. Estimated blood loss was minimal. A 7 mm non-bleeding Zakia-Quezada tear with stigmata of recent bleeding was found. Coagulation for bleeding prevention using heater probe was successful. Estimated blood loss was minimal. A hiatal hernia was present. Evidence of a fundoplication was found in the gastric fundus. The wrap appeared loose. This was traversed. No gross lesions were noted in the entire examined stomach. No gross lesions were noted in the entire examined duodenum. Impression: - LA Grade C erosive esophagitis with bleeding. Biopsied. Treated with a heater probe. - Zakia-Quezada tear. Treated with a heater probe. - Hiatal hernia. - A fundoplication was found. The wrap appears loose. - No gross lesions in the entire stomach. - No gross lesions in the entire examined duodenum. Recommendation: - Return patient to [facility] for ongoing care. - Resume regular diet. - Use Protonix (pantoprazole) 40 mg PO BID for 3 months. - Continue present medications. Procedure Code(s): --- Professional --- 31689, 59, Small intestinal endoscopy, enteroscopy beyond second portion of duodenum, not including ileum; with control of bleeding (eg, injection, bipolar cautery, unipolar cautery, laser, heater probe, stapler, plasma wound care technician) [id number], 51, Small intestinal endoscopy, enteroscopy beyond second portion of duodenum, not including ileum; with biopsy, single or multiple CPT copyright 2021 [employer]. All rights reserved. The codes documented in this report are preliminary and upon test hole driller review may be revised to meet current compliance requirements. Raul Casper DO 12/28/2024 7:15:07 PM This report has been signed electronically. Number of Addenda: 0 Note Initiated On: 12/28/2024 6:52 PM
--- NOTE | 2024-12-28 19:18 | PCM.POST.ANE ---
Anesthesia: Postop Eval I Current Vital Signs Temperature: 98.7 F Pulse Rate: 87 Blood Pressure: 111/61 Respiratory Rate: 16 Pulse Ox: 95 Oxygen Delivery Method: Room Air Assessment Airway patent: Yes Spontaneous unlabored respirations: Yes Mental status: Awake and Calm nausea: No Vomiting: No Anesthesia Complication: No Fluid Hydration Crystalloid volume administer (ml): 200 Total IV fluid infused: 200 Progress Note Anesthesia document: Postop Eval 1 completed: Yes
--- NOTE | 2024-12-28 19:20 | CASEMGMT ---
Social Work - SDOH SDOH screening completed and no additional resources provided based off of screening. Patient was talkative however and director of social services provided supportive listening and emotional support to patient. 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 Reflected on her 's health condition and need for higher assistance which resulted in the selling of the family farm. 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 Emotional support offered. The topic of advance directives were discussed and it was verified that patient has both a living will and power of corporate associate attorney for healthcare on file. Patient's daughter is the identified power of corporate associate attorney for healthcare and patient desires for this to continue. No other services requested or indicated. Social work does remain available however should needs arise. -EPI Velasquez, IC DES[employer]ER [employer] *This note was generated with [employer] dictation software. It may contain incorrect words, spelling, and punctuation that were not noted in review of the chart prior to signing*
--- NOTE | 2024-12-28 19:33 | SUR.PHASEI ---
CALLED FOR TRANSPORT BACK TO [facility]
--- NOTE | 2024-12-28 22:21 | PCM.POSTANE2 ---
Anesthesia Postop Eval I Sum Postop Eval Completion status Anesthesia document: Postop Eval 1 completed: Yes Anesthesia Postop Eval I Summary Anesthesia Postop Eval I Summary: Anesthesia Postop Eval I: Assessment Summary Airway patent Yes 12/28/24 19:20 Spontaneous unlabored Yes 12/28/24 19:20 respirations Mental status Awake,Calm 12/28/24 19:20 nausea No 12/28/24 19:20 Vomiting No 12/28/24 19:20 Anesthesia Postop Eval I: Fluid Summary Crystalloid volume administer 200 12/28/24 19:20 (ml) Colloids volume administered ( ml) Blood Product volume administered (ml) Total IV fluid infused 200 12/28/24 19:20 Anesthesia Postop Eval I: Summary Notes Anesthesia Complication No 12/28/24 19:20 Anesthesia Complication Comment: Post-operative progress note Anesthesia: Postop Eval II Evaluation Mental status: Awake and Calm Pain Level: 0 nausea: No Vomiting: No Complications Anesthesia Complication: No
[2024-12-29 02:37] VITALS: BMI 37.0
[2024-12-29] MEDS: 0.9% Saline Lock 10 ML Syringe IV ×3 (03:42→18:26)
[2024-12-29 03:45] VITALS: BP 116/48; PULSE 81; RESP 18; TEMP 37; O2SAT 93
[2024-12-29 06:35] LABS: Hematocrit 23.0 % (37-47); Hemoglobin 7.3 g/dL (12.0-15.0); Immature Granulocytes Count 0.040 X10^3/uL (0.0-0.0); Mean Corp Hgb Conc 31.7 g/dL (32-36); Mean Corpuscular Volume 96.6 fL (81-99); Mean Platelet Vol. 10.1 fl (6.2-12.0); NRBC Flagged by Analyzer 0 % (0-5); Platelet Count 237 K/mm3 (150-450); RBC Distribution Width CV 16.6 % (11.6-14.6); RBC Distribution Width SD 55.6 fl (35.1-43.9); Red Blood Count 2.38 M/mm3 (4.2-5.4); White Blood Count 8.9 K/mm3 (4.4-11.0)
[2024-12-29 07:06] LABS: Anion Gap 7 (5-15); BUN 9 mg/dL (4-19); BUN/Creat Ratio 13.9 RATIO (10-20); Calcium,Total 8.0 mg/dL (7.6-11.0); Carbon Dioxide 25.3 mmol/L (21.0-32.0); Chloride 107 mmol/L (98-108); Estimated Creatinine Clearance 70.14 ml/min (50-250); Glucose 201 mg/dL (70-99); Magnesium 2.1 mg/dL (1.5-2.2); Potassium 3.6 mmol/L (3.3-5.1)
--- NOTE | 2024-12-29 08:53 | PN.HOSP_ITS ---
Reason for Visit Chief Complaint: Melena/abdominal pain Subjective Subjective Patient underwent EGD the day prior findings and recommendation as documented below Objective Data Objective Data Vital Signs: Vital Signs Temp Pulse Resp BP Pulse Ox O2 Del Method 98.6 F 81 18 116/48 L 93 Room Air 12/29/24 03:45 12/29/24 03:45 12/29/24 03:45 12/29/24 03:45 12/29/24 03:45 12/29/24 03:45 Oxygen Delivery Method Room Air Weight: 98 kg Body Mass Index (BMI) 37.0 Intake & Output: Intake and Output for Last 24 Hours 12/27/24 12/28/24 12/29/24 23:59 23:59 23:59 Intake Total 990.00 / 990.00 Output Total 2800 / 2800 Balance 988.00 / 988.00 -2800 / -2800 Lab / Micro Data 12/29/24 05:26 12/29/24 05:26 Labs: Laboratory Results - last 24 hr 12/28/24 10:08: Hgb 8.3 L, Hct 25.4 L 12/28/24 11:09: POC Glucose 189 H 12/28/24 16:10: POC Glucose 166 H 12/28/24 23:52: POC Glucose 252 H 12/29/24 05:26: WBC 8.9, RBC 2.38 L, Hgb 7.3 L, Hct 23.0 L, MCV 96.6, MCH 30.7, MCHC 31.7 L D, RDW Std Deviation 55.6 H, RDW Coeff of Ronnie 16.6 H, Plt Count 237, MPV 10.1, Immature Gran % (Auto) 0.400, Neut % (Auto) 57.7, Lymph % (Auto) 24.2, [place] % (Auto) 11.1 H, Eos % (Auto) 6.0 H, Baso % (Auto) 0.6, Absolute Neuts (auto) 5.1, Absolute Lymphs (auto) 2.15, Nucleated RBC % 0, Sodium 140, Potassium 3.6, Chloride 107, Carbon Dioxide 25.3, Anion Gap 7, BUN 9, Creatinine 0.66 L, Estim Creat Clear Calc 70.14, Est GFR (MDRD) Non-Af 92, BUN/Creatinine Ratio 13.9, Glucose 201 H, Calcium 8.0, Phosphorus 3.1, Magnesium 2.1 12/29/24 05:39: POC Glucose 204 H Micro: Microbiology 12/27/24 11:23 Stool Stool Occult Blood (PIA) - Final Occult Blood Positive Radiography Diagnostic Testing: Radiology Impression Chest X-Ray 12/28/24 10:44 IMPRESSION: 1. Hiatus hernia. 2. Mild cardiac enlargement. Subsegmental atelectasis left lower lobe. Reading Location: [facility] Physical Exam Narrative GENERAL: cooperative HEENT: Atraumatic; normocephalic EYES; Anicteric, Normal Conjunctiva NECK; supple, normal thyroid, RESPIRATORY: Diminished to auscultation CARDIOVASCULAR: Regular S1 S2, GI: soft, normoactive bowel sounds, : No Renal angle tenderness; EXTREMITIES: No edema, no clubbing, MUSCULOSKELETAL: no muscle wasting NEURO: Awake; no lateralizing signs. SKIN: No Rash PSYCH; Flat affect Assessment & Plan Assessment/Plan (1) GI bleed: PLAN: Plan Patient is a 74-year-old lady who presented to the emergency department with abdominal pain with associated nausea and vomiting as well as melenic stools. Patient was found to be anemic with hemoglobin of 7.0 admitted to monitored bed for further management 1. Anemia – Secondary to acute blood loss anemia suspected to be secondary to upper GI bleed exacerbated by the use of aspirin. Patient hemoglobin on admission was 7.0 patient was transfused with 1 unit PRBC started on Protonix drip after bolus admitted to monitored bed H&H ordered consult placed to GI – 12/29/2024; patient underwent EGD by Dr. Casper on 12/28/2024 findings and recommendations as below Impressions : - LA Grade C erosive esophagitis with bleeding. Biopsied. Treated with a heater probe. - Zakia-Quezada tear. Treated with a heater probe. - Hiatal hernia. - A fundoplication was found. The wrap appears loose. - No gross lesions in the entire stomach. - No gross lesions in the entire examined duodenum. Recommendations : -- Use Protonix (pantoprazole) 40 mg PO BID for 3 months. Patient hemoglobin down to 7.3 we will continue with monitoring. Repeated H&H at 1400 2. Acute cystitis – Patient urinalysis was abnormal and consistent with UTI started on ceftriaxone – 12/29/2024; patient urine cultures so far positive for an alphahemolytic organism with greater than 100 K CFU and mixed gram-positive and gram-negative organisms with 25K-50K CFU final identification and sensitivities pending 3. Hypothyroidism – Patient is on levothyroxine home dose continued 4. Peripheral arterial disease – Patient is on antiplatelet held on admission 5. New onset diabetes mellitus type 2 – Patient presented with hyperglycemia hemoglobin A1c ordered came back at 7.8. Subsequently placed on Accu-Cheks ACHS as well as 1800 ADA diet 6. Degenerative joint disease – Pain meds as needed 7. Hepatosteatosis – Consult was placed to GI on admission 8. Hypertension – Blood pressure controlled, home medications continued with dose adjustment as needed 9. Mild intermittent asthma – Currently not in exacerbation aerosol treatments as needed 10. GERD/history of Sarmiento's esophagus - Previous Robbie fundoplication; PPI as above 11 remote history of DVT – Patient was treated appropriately 12. Class II obesity with BMI of 39.4 – Complicating care weight loss advised 13. DVT prophylaxis – Bilateral SCDs Time spent in the patient's overall evaluation,decision-making process, review of diagnostic data, adjustment of management, discussion with other providers, nursing nursing and ancillary staff involved in patient's care documentation, 52. Minutes Charges/Coding Visit Charges Inpatient E&M: 72371 [facility] L3
[2024-12-29 09:03] VITALS: BP 116/51; PULSE 78; RESP 18; TEMP 36.6; O2SAT 94
[2024-12-29] MEDS: Insulin Glargine-YFGN 100 UNIT/ML Pen 10 UNIT SC (09:09)
[2024-12-29 14:06] LABS: Hematocrit 24.4 % (37-47); Hemoglobin 7.7 g/dL (12.0-15.0)
[2024-12-29 16:35] VITALS: BP 109/64; PULSE 80; RESP 16; TEMP 36.7; O2SAT 94
[2024-12-29 21:17] VITALS: BP 123/56; PULSE 74; RESP 18; TEMP 36.7; O2SAT 90
[2024-12-30] VITALS (10 sets, daily range): BP systolic 105–125; BP diastolic 52–59; PULSE 77–89; RESP 16–18; TEMP 36.7–37.2; O2SAT 92–99; BMI 37.1
[2024-12-30 05:49] LABS: Hematocrit 22.7 % (37-47); Hemoglobin 7.3 g/dL (12.0-15.0); Immature Granulocytes Count 0.030 X10^3/uL (0.0-0.0); Mean Corp Hgb Conc 32.2 g/dL (32-36); Mean Corpuscular Volume 96.6 fL (81-99); Mean Platelet Vol. 9.5 fl (6.2-12.0); NRBC Flagged by Analyzer 0 % (0-5); Platelet Count 230 K/mm3 (150-450); RBC Distribution Width CV 15.9 % (11.6-14.6); RBC Distribution Width SD 54.6 fl (35.1-43.9); Red Blood Count 2.35 M/mm3 (4.2-5.4); White Blood Count 7.5 K/mm3 (4.4-11.0)
[2024-12-30 06:48] LABS: Anion Gap 7 (5-15); BUN 10 mg/dL (4-19); BUN/Creat Ratio 14.9 RATIO (10-20); Calcium,Total 8.2 mg/dL (7.6-11.0); Carbon Dioxide 26.0 mmol/L (21.0-32.0); Chloride 104 mmol/L (98-108); Estimated Creatinine Clearance 70.18 ml/min (50-250); Glucose 164 mg/dL (70-99); Potassium 3.8 mmol/L (3.3-5.1)
--- NOTE | 2024-12-30 08:29 | PCM.PN.HOSP ---
Reason for Visit Chief Complaint: Melena/abdominal pain Subjective Subjective Patient seen and reports wheezing. Clinical evaluation consistent with acute congestive heart failure Objective Data Objective Data Vital Signs: Vital Signs Temp Pulse Resp BP Pulse Ox O2 Del Method O2 Flow Rate 98.9 F 77 16 109/59 L 96 Nasal Cannula 2 12/30/24 03:50 12/30/24 03:50 12/30/24 03:50 12/30/24 03:50 12/30/24 03:50 12/30/24 03:50 12/30/24 03:50 Oxygen Flow Rate (L/min) 2 Oxygen Delivery Method Nasal Cannula Weight: 98.1 kg Body Mass Index (BMI) 37.1 Intake & Output: Intake and Output for Last 24 Hours 12/28/24 12/29/24 12/30/24 23:59 23:59 23:59 Intake Total 990.00 / 990.00 50 / 50 Output Total 4300 / 4800 500 / 500 Balance 988.00 / 988.00 -4250 / -4750 -500 / -500 Lab / Micro Data 12/30/24 10:42 12/30/24 05:29 Labs: Laboratory Results - last 24 hr 12/29/24 11:38: POC Glucose 195 H 12/29/24 13:51: Hgb 7.7 L, Hct 24.4 L 12/29/24 16:43: POC Glucose 206 H 12/30/24 00:00: POC Glucose 177 H 12/30/24 05:29: WBC 7.5, RBC 2.35 L, Hgb 7.3 L, Hct 22.7 L, MCV 96.6, MCH 31.1, MCHC 32.2, RDW Std Deviation 54.6 H, RDW Coeff of Ronnie 15.9 H, Plt Count 230, MPV 9.5, Immature Gran % (Auto) 0.400, Neut % (Auto) 53.2, Lymph % (Auto) 27.7, [place] % (Auto) 9.6, Eos % (Auto) 8.6 H, Baso % (Auto) 0.5, Absolute Neuts (auto) 4.0, Absolute Lymphs (auto) 2.08, Nucleated RBC % 0, Sodium 137, Potassium 3.8, Chloride 104, Carbon Dioxide 26.0, Anion Gap 7, BUN 10, Creatinine 0.70, Estim Creat Clear Calc 70.18, Est GFR (MDRD) Non-Af 91, BUN/Creatinine Ratio 14.9, Glucose 164 H, Calcium 8.2 Micro: Microbiology 12/27/24 11:23 Urine, Clean Catch Urine Culture - Final Aerococcus urinae Mixed Gram Pos & Gram Neg Org 12/27/24 11:23 Stool Stool Occult Blood (PIA) - Final Occult Blood Positive Physical Exam Narrative GENERAL: cooperative HEENT: Atraumatic; normocephalic EYES; Anicteric, Normal Conjunctiva NECK; supple, normal thyroid, RESPIRATORY: Diminished to auscultation – With bibasilar wheezes and crackles CARDIOVASCULAR: Regular S1 S2, GI: soft, normoactive bowel sounds, : No Renal angle tenderness; EXTREMITIES: Bipedal edema MUSCULOSKELETAL: no muscle wasting NEURO: Awake; no lateralizing signs. SKIN: No Rash PSYCH; Flat affect Assessment & Plan Assessment/Plan (1) GI bleed: PLAN: Plan Patient is a 74-year-old lady who presented to the emergency department with abdominal pain with associated nausea and vomiting as well as melenic stools. Patient was found to be anemic with hemoglobin of 7.0 admitted to monitored bed for further management 1. Anemia – Secondary to acute blood loss anemia suspected to be secondary to upper GI bleed exacerbated by the use of aspirin. Patient hemoglobin on admission was 7.0 patient was transfused with 1 unit PRBC started on Protonix drip after bolus admitted to monitored bed H&H ordered consult placed to GI – 12/29/2024; patient underwent EGD by Dr. Casper on 12/28/2024 findings and recommendations as below Impressions : - LA Grade C erosive esophagitis with bleeding. Biopsied. Treated with a heater probe. - Zakia-Quezada tear. Treated with a heater probe. - Hiatal hernia. - A fundoplication was found. The wrap appears loose. - No gross lesions in the entire stomach. - No gross lesions in the entire examined duodenum. Recommendations : -- Use Protonix (pantoprazole) 40 mg PO BID for 3 months. Patient hemoglobin down to 7.3 we will continue with monitoring. Repeated H&H at 1400 – 12/31/2023; patient hemoglobin up to 7.9 2. Acute cystitis – Patient urinalysis was abnormal and consistent with UTI started on ceftriaxone – 12/29/2024; patient urine cultures so far positive for an alphahemolytic organism with greater than 100 K CFU and mixed gram-positive and gram-negative organisms with 25K-50K CFU final identification and sensitivities pending – 12/30/2024; patient friend urine culture sensitivities reviewed positive for Aerococcus 3. Acute congestive heart failure–suspected heart failure with preserved ejection fraction – Ordered 2D echo, proBNP. Patient started on diuretics placed on low-sodium diet in addition to fluid restriction and serial monitoring of electrolyte. Also ordered daily weights as well as strict input and output and discontinued patient IV fluids 4. Peripheral arterial disease – Patient is on antiplatelet held on admission 5. New onset diabetes mellitus type 2 – Patient presented with hyperglycemia hemoglobin A1c ordered came back at 7.8. Subsequently placed on Accu-Cheks ACHS as well as 1800 ADA diet 6. Degenerative joint disease – Pain meds as needed 7. Hepatosteatosis – Consult was placed to GI on admission 8. Hypertension – Blood pressure controlled, home medications continued with dose adjustment as needed 9. Mild intermittent asthma – Currently not in exacerbation aerosol treatments as needed 10. GERD/history of Sarmiento's esophagus - Previous Robbie fundoplication; PPI as above 11. Hypothyroidism – Patient is on levothyroxine home dose continued 12 remote history of DVT – Patient was treated appropriately 13. Class II obesity with BMI of 39.4 – Complicating care weight loss advised 14. DVT prophylaxis – Bilateral SCDs Time spent in the patient's overall evaluation,decision-making process, review of diagnostic data, adjustment of management, discussion with other providers, nursing nursing and ancillary staff involved in patient's care documentation, 50. Minutes Charges/Coding Visit Charges Inpatient E&M: [address] [facility] Hosp L3
[2024-12-30] MEDS: Insulin Glargine-YFGN 100 UNIT/ML Pen 10 UNIT SC (09:01)
[2024-12-30] MEDS: 0.9% Saline Lock 10 ML Syringe IV ×2 (09:12→11:50)
[2024-12-30 10:49] LABS: Hematocrit 25.0 % (37-47); Hemoglobin 7.9 g/dL (12.0-15.0)
--- NOTE | 2024-12-30 11:23 | ECHOD_ITS ---
Reason For Study Reason For Study: CHF Procedure This was a 2D Doppler, Color Flow transthoracic echocardiogram. Exam performed portable in patient room. Left Ventricle Normal LV size. Moderate concentric left ventricular hypertrophy. Left ventricular systolic function is normal. The left ventricular ejection fraction is 75 %. Resting LV gradient 4 mmHg. Valsalva LV gradient 47 mmHg. No regional wall motion abnormalities noted. Right Ventricle Normal RV size. Normal systolic function. Atria Normal left atrium. Normal right atrium. Mitral Valve Normal mitral valve. Tricuspid Valve Normal tricuspid valve. Aortic Valve Trisinus/trileaflet aortic valve. Pulmonic Valve Normal pulmonic valve. Great Vessels Normal aortic root. The pulmonary artery is normal size. Inferior vena cava collapse with respiration. Pericardium/Pleural No pericardial effusion. MMode/2D Measurements & Calculations LVIDd: 4.0 cm IVSd: 1.3 cm Ao root diam: 3.4 cm LVIDs: 2.4 cm LVPWd: 1.4 cm FS: 38.2 % LAV(MOD-bp): 40.0 ml LVAd ap4: 20.1 cm2 SV(MOD-sp4): 36.3 ml LAV(MOD-bp) Indexed: 19.8 ml/m2 LVLd ap4: 7.4 cm SI(MOD-sp4): 17.9 ml/m2 LAV(MOD-sp2): 31.1 ml EDV(MOD-sp4): 44.5 ml LAV(MOD-sp4): 44.3 ml EDV(sp4-el): 46.2 ml LVAs ap4: 6.5 cm2 LVLs ap4: 5.0 cm ESV(MOD-sp4): 8.2 ml ESV(sp4-el): 7.1 ml EF(MOD-sp4): 81.5 % EF(sp4-el): 84.6 % SV(sp4-el): 39.1 ml LA A4 area: 16.3 cm2 RA A4 area: 11.4 cm2 Time Measurements MV dec time: 0.23 sec Doppler Measurements & Calculations MV E max servando: 80.1 cm/sec MV V2 max: 102.2 cm/sec MV A max servando: 76.0 cm/sec MV max P.2 mmHg MV dec slope: 359.3 cm/sec2 MV E/A: 1.1 MV V2 mean: 74.2 cm/sec MV mean P.4 mmHg MV V2 VTI: 37.8 cm Ao V2 max: 133.6 cm/sec LV V1 max: 133.5 cm/sec PA V2 max: 91.1 cm/sec Ao max P.2 mmHg LV V1 max P.1 mmHg PA V2 mean: 63.4 cm/sec Ao V2 mean: 89.0 cm/sec LV V1 mean P.7 mmHg Ao mean P.6 mmHg LV V1 mean: 89.5 cm/sec Ao V2 VTI: 26.5 cm LV V1 VTI: 26.7 cm AV (velocity ratio): 1.0 ECHO/Echo Complete Interpretation Summary Normal LV size. Moderate concentric left ventricular hypertrophy. The left ventricular ejection fraction is 75 %. Left ventricular systolic function is normal. Resting LV gradient 4 mmHg. Valsalva LV gradient 47 mmHg. Ordering Physician: Keshav Elizondo Referring Physician: Miryam Riojas M.D. Performed By: Mckayla Terry RCS
[2024-12-30] MEDS: Albuterol 2.5 MG/3 ML VIAL.NEB. INHALATION (12:12)
--- NOTE | 2024-12-30 18:49 | PN_ITS ---
Progress Note A 74-year-old woman presents for a follow-up visit after being diagnosed with erosive esophagitis and bleeding stigmata. She initially presented with progressive dysphagia, nausea, and vomiting. * Intervention and Treatment: An upper endoscopy was performed, and bleeding stigmata were treated endoscopically. She was started on PPI (proton pump inhi bitor) therapy and Carafate (sucralfate). * Current Status: The patient reports significant improvement in her symptoms since the last visit. She is tolerating her diet well and denies any further episodes of dysphagia, nausea, or vomiting. She has been compliant with her medication regimen. * Associated Symptoms: She denies any new or worsening symptoms, including heartburn, chest pain, or bleeding. Physical Exam Const alert, oriented x3, no apparent distress and healthy appearing General Appearance: cooperative GI normal to inspection, nondistended, normoactive bowel sounds, soft to palpation, non-tender and non-distended Percussion: normal to percussion Rectal Exam: deferred Assessment & Plan Assessment/Plan (1) GI bleed: PLAN: Assessment * Progressive Dysphagia/Nausea/Vomiting: Resolved with PPI and sucralfate therapy. * Erosive Esophagitis with Bleeding: Improved following endoscopic treatment and continued medical management. Hemoglobin is stable, suggesting resolution of active bleeding. * Potential Complications: * GERD : Likely underlying cause of the erosive esophagitis. * Pill-induced Esophagitis: Ruled out due to appropriate medication regimen. * Infectious Esophagitis: Less likely given the clinical picture and treatment response. Plan * Continue Medication: Continue current regimen of PPI therapy and Carafate as prescribed. * Dietary Modifications: * Encourage a soft-food diet, chewing food thoroughly, and eating slowly. * Recommend eating smaller, more frequent meals. * Advise avoiding trigger foods such as acidic, spicy, and fatty foods, as well as carbonated beverages, caffeine, and alcohol. * Discourage eating within 3 hours of bedtime. * Lifestyle Modifications: * Suggest elevating the head of the bed to reduce nocturnal reflux. * Advise maintaining a healthy weight. * Instruct on the importance of staying upright for at least 45–60 minutes after eating. * Follow-Up: * Follow up in 4–6 weeks to monitor symptoms and assess for relapse. * Check repeat hemoglobin levels to ensure continued stability. * Consider repeat endoscopy if symptoms recur or fail to resolve. Visit Charges Inpatient E&M: 39322 [facility] Hosp L3
--- NOTE | 2024-12-30 18:49 | PCM.PN.BLA ---
Progress Note A 74-year-old woman presents for a follow-up visit after being diagnosed with erosive esophagitis and bleeding stigmata. She initially presented with progressive dysphagia, nausea, and vomiting. Intervention and Treatment: An upper endoscopy was performed, and bleeding stigmata were treated endoscopically. She was started on PPI (proton pump inhibitor) therapy and Carafate (sucralfate). Current Status: The patient reports significant improvement in her symptoms since the last visit. She is tolerating her diet well and denies any further episodes of dysphagia, nausea, or vomiting. She has been compliant with her medication regimen. Associated Symptoms: She denies any new or worsening symptoms, including heartburn, chest pain, or bleeding. Physical Exam Const alert, oriented x3, no apparent distress and healthy appearing General Appearance: cooperative GI normal to inspection, nondistended, normoactive bowel sounds, soft to palpation, non-tender and non-distended Percussion: normal to percussion Rectal Exam: deferred Assessment & Plan Assessment/Plan (1) GI bleed: PLAN: Assessment Progressive Dysphagia/Nausea/Vomiting: Resolved with PPI and sucralfate therapy. Erosive Esophagitis with Bleeding: Improved following endoscopic treatment and continued medical management. Hemoglobin is stable, suggesting resolution of active bleeding. Potential Complications: GERD : Likely underlying cause of the erosive esophagitis. Pill-induced Esophagitis: Ruled out due to appropriate medication regimen. Infectious Esophagitis: Less likely given the clinical picture and treatment response. Plan Continue Medication: Continue current regimen of PPI therapy and Carafate as prescribed. Dietary Modifications: Encourage a soft-food diet, chewing food thoroughly, and eating slowly. Recommend eating smaller, more frequent meals. Advise avoiding trigger foods such as acidic, spicy, and fatty foods, as well as carbonated beverages, caffeine, and alcohol. Discourage eating within 3 hours of bedtime. Lifestyle Modifications: Suggest elevating the head of the bed to reduce nocturnal reflux. Advise maintaining a healthy weight. Instruct on the importance of staying upright for at least 45–60 minutes after eating. Follow-Up: Follow up in 4–6 weeks to monitor symptoms and assess for relapse. Check repeat hemoglobin levels to ensure continued stability. Consider repeat endoscopy if symptoms recur or fail to resolve. Visit Charges Inpatient E&M: 08022 [facility] Hosp L3
[2024-12-31] VITALS (9 sets, daily range): BP systolic 107–138; BP diastolic 64–77; PULSE 75–89; RESP 16–18; TEMP 36.8–37.2; O2SAT 92–96; BMI 36.8
[2024-12-31 05:57] LABS: Hematocrit 25.2 % (37-47); Hemoglobin 8.3 g/dL (12.0-15.0); Immature Granulocytes Count 0.040 X10^3/uL (0.0-0.0); Mean Corp Hgb Conc 32.9 g/dL (32-36); Mean Corpuscular Volume 93.3 fL (81-99); Mean Platelet Vol. 9.7 fl (6.2-12.0); NRBC Flagged by Analyzer 0 % (0-5); Platelet Count 310 K/mm3 (150-450); RBC Distribution Width CV 15.2 % (11.6-14.6); RBC Distribution Width SD 50.8 fl (35.1-43.9); Red Blood Count 2.70 M/mm3 (4.2-5.4); White Blood Count 8.9 K/mm3 (4.4-11.0)
[2024-12-31 06:45] LABS: Anion Gap 11 (5-15); BUN 14 mg/dL (4-19); BUN/Creat Ratio 18.7 RATIO (10-20); Calcium,Total 8.5 mg/dL (7.6-11.0); Carbon Dioxide 29.3 mmol/L (21.0-32.0); Chloride 99 mmol/L (98-108); Estimated Creatinine Clearance 69.95 ml/min (50-250); Glucose 167 mg/dL (70-99); Potassium 3.1 mmol/L (3.3-5.1)
[2024-12-31 07:01] LABS: Pro- Brain NATRIURETIC PEPTIDE 154 pg/mL (<=900)
[2024-12-31] MEDS: Insulin Glargine-YFGN 100 UNIT/ML Pen 10 UNIT SC (09:09)
--- NOTE | 2024-12-31 09:29 | PCM.PN.HOSP ---
Reason for Visit Chief Complaint: Melena/abdominal pain Subjective Subjective Patient seen, currently on oxygen. Had a good response to diuretic therapy and had a negative fluid balance of 4.7 L over the past 24 hours will continue with diuretic therapy was relaxing her fluid restriction per her request. Diagnostic data reviewed significant for hypokalemia of 3.1 Objective Data Objective Data Vital Signs: Vital Signs Temp Pulse Resp BP Pulse Ox O2 Del Method O2 Flow Rate 98.6 F 88 16 115/66 95 Nasal Cannula 2 12/31/24 09:00 12/31/24 09:00 12/31/24 09:00 12/31/24 09:00 12/31/24 09:00 12/31/24 09:00 12/31/24 09:00 Oxygen Flow Rate (L/min) 2 Oxygen Delivery Method Nasal Cannula Weight: 97.5 kg Body Mass Index (BMI) 36.8 Intake & Output: Intake and Output for Last 24 Hours 12/29/24 12/30/24 12/31/24 23:59 23:59 23:59 Intake Total 50 / 50 50 / 50 250 / 250 Output Total 4300 / 4800 4000 / 5575 1575 / 1575 Balance -4250 / -4750 -3950 / -5525 -1325 / -1325 Lab / Micro Data 12/31/24 05:38 12/31/24 05:38 Labs: Laboratory Results - last 24 hr 12/30/24 05:47: POC Glucose 161 H 12/30/24 10:42: Hgb 7.9 L, Hct 25.0 L 12/30/24 11:08: POC Glucose 232 H 12/30/24 16:47: POC Glucose 268 H 12/30/24 22:00: POC Glucose 217 H 12/31/24 05:38: WBC 8.9, RBC 2.70 L, Hgb 8.3 L, Hct 25.2 L, MCV 93.3, MCH 30.7, MCHC 32.9, RDW Std Deviation 50.8 H, RDW Coeff of Ronnie 15.2 H, Plt Count 310, MPV 9.7, Immature Gran % (Auto) 0.500, Neut % (Auto) 64.9, Lymph % (Auto) 20.1, [place] % (Auto) 9.7, Eos % (Auto) 4.2, Baso % (Auto) 0.6, Absolute Neuts (auto) 5.8, Absolute Lymphs (auto) 1.78, Nucleated RBC % 0, Sodium 139, Potassium 3.1 L, Chloride 99, Carbon Dioxide 29.3, Anion Gap 11, BUN 14, Creatinine 0.77, Estim Creat Clear Calc 69.95, Est GFR (MDRD) Non-Af 81, BUN/Creatinine Ratio 18.7, Glucose 167 H, Calcium 8.5, NT pro BNP II 154 Micro: Microbiology 12/27/24 11:23 Urine, Clean Catch Urine Culture - Final Aerococcus urinae Mixed Gram Pos & Gram Neg Org 12/27/24 11:23 Stool Stool Occult Blood (PIA) - Final Occult Blood Positive Radiography Diagnostic Testing: Radiology Impression Echocardiogram 12/30/24 11:23 Interpretation Summary Normal LV size. Moderate concentric left ventricular hypertrophy. The left ventricular ejection fraction is 75 %. Left ventricular systolic function is normal. Resting LV gradient 4 mmHg. Valsalva LV gradient 47 mmHg. Ordering Physician: Keshav Elizondo Referring Physician: Miryam Riojas M.D. Performed By: Mckayla Terry RCS Physical Exam Narrative GENERAL: cooperative HEENT: Atraumatic; normocephalic EYES; Anicteric, Normal Conjunctiva NECK; supple, normal thyroid, RESPIRATORY: Diminished to auscultation – With bibasilar wheezes and crackles CARDIOVASCULAR: Regular S1 S2, GI: soft, normoactive bowel sounds, : No Renal angle tenderness; EXTREMITIES: Bipedal edema MUSCULOSKELETAL: no muscle wasting NEURO: Awake; no lateralizing signs. SKIN: No Rash PSYCH; Flat affect Assessment & Plan Assessment/Plan (1) GI bleed: PLAN: Plan Patient is a 74-year-old lady who presented to the emergency department with abdominal pain with associated nausea and vomiting as well as melenic stools. Patient was found to be anemic with hemoglobin of 7.0 admitted to monitored bed for further management 1. Anemia – Secondary to acute blood loss anemia suspected to be secondary to upper GI bleed exacerbated by the use of aspirin. Patient hemoglobin on admission was 7.0 patient was transfused with 1 unit PRBC started on Protonix drip after bolus admitted to monitored bed H&H ordered consult placed to GI – 12/29/2024; patient underwent EGD by Dr. Casper on 12/28/2024 findings and recommendations as below Impressions : - LA Grade C erosive esophagitis with bleeding. Biopsied. Treated with a heater probe. - Zakia-Quezada tear. Treated with a heater probe. - Hiatal hernia. - A fundoplication was found. The wrap appears loose. - No gross lesions in the entire stomach. - No gross lesions in the entire examined duodenum. Recommendations : -- Use Protonix (pantoprazole) 40 mg PO BID for 3 months. Patient hemoglobin down to 7.3 we will continue with monitoring. Repeated H&H at 1400 – 12/31/2023; patient hemoglobin up to 7.9 2. Acute cystitis – Patient urinalysis was abnormal and consistent with UTI started on ceftriaxone – 12/29/2024; patient urine cultures so far positive for an alphahemolytic organism with greater than 100 K CFU and mixed gram-positive and gram-negative organisms with 25K-50K CFU final identification and sensitivities pending – 12/30/2024; patient friend urine culture sensitivities reviewed positive for Aerococcus 3. Acute congestive heart failure–suspected heart failure with preserved ejection fraction – Ordered 2D echo, proBNP. Patient started on diuretics placed on low-sodium diet in addition to fluid restriction and serial monitoring of electrolyte. Also ordered daily weights as well as strict input and output and discontinued patient IV fluids 12/31/2024; Had a good response to diuretic therapy and had a negative fluid balance of 4.7 L over the past 24 hours will continue with diuretic therapy was relaxing her fluid restriction per her request. 2D echo obtained did show normal LV size. Moderate concentric left ventricular hypertrophy. The left ventricular ejection fraction is 75 %.Left ventricular systolic function is normal. Resting LV gradient 4 mmHg.Valsalva LV gradient 47 mmHg. Plan is to continue with diuretic therapy for an additional day 4. Peripheral arterial disease – Patient is on antiplatelet held on admission 5. New onset diabetes mellitus type 2 – Patient presented with hyperglycemia hemoglobin A1c ordered came back at 7.8. Subsequently placed on Accu-Cheks ACHS as well as 1800 ADA diet 6. Degenerative joint disease – Pain meds as needed 7. Hepatosteatosis – Consult was placed to GI on admission 8. Hypertension – Blood pressure controlled, home medications continued with dose adjustment as needed 9. Mild intermittent asthma – Currently not in exacerbation aerosol treatments as needed 10. GERD/history of Sarmiento's esophagus - Previous Robbie fundoplication; PPI as above 11. Hypothyroidism – Patient is on levothyroxine home dose continued 12. Remote history of DVT – Patient was treated appropriately 13. Class II obesity with BMI of 39.4 – Complicating care weight loss advised 14. DVT prophylaxis – Bilateral SCDs 15. Hypokalemia – Corrected per protocol repeat labs ordered in a.m. to assess response to therapy 16. Atelectasis – Did encourage the use of incentive spirometry 17. Physical deconditioning – Requested for PT OT eval and marriage and family social worker to assist with discharge planning Time spent in the patient's overall evaluation,decision-making process, review of diagnostic data, adjustment of management, discussion with other providers, nursing nursing and ancillary staff involved in patient's care documentation, 52. Minutes Charges/Coding Visit Charges Inpatient E&M: 10260 Subs Hosp L3
--- NOTE | 2024-12-31 11:28 | CASEMGMT ---
Hospitalist reports that the pt has responded well to the Lasix but is now requiring new oxygen. Hospitalist anticipates DC for 01/01. ROCÍO CM to the pt room at this time. Pt is currently requiring additional oxygen and may qualify for home oxygen use. A verbal list of local in-network DME companies were provided to the pt at this time. Pt prefers [employer]. Otherwise, pt states that she feels safe returning home with her once medically ready and denies further questions or concerns at this time.Green sheet placed on the chart to help facilitate weekend DC.
[2024-12-31] MEDS: Potassium Chloride Oral Tablet 20 MEQ 40 MEQ PO (13:13)
[2024-12-31] MEDS: Potassium Chloride Oral Tablet 20 MEQ PO (17:52)
[2024-12-31] MEDS: 0.9% Saline Lock 10 ML Syringe IV (21:23)
[2025-01-01] VITALS (12 sets, daily range): BP systolic 101–145; BP diastolic 58–73; PULSE 74–95; RESP 14–18; TEMP 36.6–37.1; O2SAT 91–96; BMI 36.8
[2025-01-01] MEDS: 0.9% Saline Lock 10 ML Syringe IV (06:45)
[2025-01-01] MEDS: Potassium Chloride Oral Tablet 20 MEQ PO ×2 (08:21→15:56)
--- NOTE | 2025-01-01 12:23 | PN.HOSP_ITS ---
Reason for Visit Chief Complaint: Melena/abdominal pain Objective Data Objective Data Vital Signs: Vital Signs Temp Pulse Resp BP Pulse Ox O2 Del Method O2 Flow Rate 98.1 F 82 18 101/69 93 Room Air 2 01/01/25 08:20 01/01/25 10:49 01/01/25 10:49 01/01/25 08:20 01/01/25 08:20 01/01/25 08:20 12/31/24 17:50 Oxygen Flow Rate (L/min) 2 Oxygen Delivery Method Room Air Weight: 214 lb 4.629 oz Body Mass Index (BMI) 36.8 Intake & Output: Intake and Output for Last 24 Hours 12/30/24 12/31/24 01/01/25 23:59 23:59 23:59 Intake Total 50 / 50 1000 / 1200 570 / 570 Output Total 4000 / 5575 2826 / 3626 1800 / 1800 Balance -3950 / -5525 -1826 / -2426 -1230 / -1230 Lab / Micro Data 12/31/24 05:38 12/31/24 05:38 Labs: Laboratory Results - last 24 hr 12/31/24 09:06: POC Glucose 200 H 12/31/24 17:22: POC Glucose 243 H 12/31/24 21:15: POC Glucose 212 H 01/01/25 06:43: POC Glucose 176 H 01/01/25 10:02: POC Glucose 263 H Micro: Microbiology 12/27/24 11:23 Urine, Clean Catch Urine Culture - Final Aerococcus urinae Mixed Gram Pos & Gram Neg Org 12/27/24 11:23 Stool Stool Occult Blood (PIA) - Final Occult Blood Positive Physical Exam Narrative Seen and examined. Complain of not moving bowel since he has been here. Passing flatus Weakness of lower legs. Has not walked. Usually she uses cane/walker when she walks outside at home. She states she has torn left knee meniscus in the past Physical exam General: Alert, Oriented x3, Cooperative HEENT: Atraumatic, PERRLA, EOMI, Normocephalic. Oral: No Gingival or Mucosal Lesions/ Ulcerations Neck: Supple, No JVD, Negative Carotid Bruits Chest wall/Lungs: Air entry diminished in bilateral lung bases. No crepitation/rhonchi Cardiovascular: Regular rate and rhythm, Normal S1,S2, No M/G/R Abdomen: Bowel Sounds Present, Soft, Non Tender, Non-Distended : No dysuria. No renal angle tenderness. No suprapubic tenderness. Extremities: No edema, Capillary Refill Less than 3 Seconds Skin: No rashes, No breakdown Musculoskeletal: Muscle strength 4/5 at both knees and hip, left more than right. ROM decreased Neurological: Cranial nerves II-XII grossly intact, DTR 2+/4. No acute focal neurological deficit. Psych/Mental Status: Normal Affect, Appropriate. Assessment & Plan Assessment/Plan (1) GI bleed: PLAN: Plan Patient is a 74-year-old lady who presented to the emergency department with abdominal pain with associated nausea and vomiting as well as melenic stools. Patient was found to be anemic with hemoglobin of 7.0 admitted to monitored bed for further management 1. Anemia – Secondary to acute blood loss anemia suspected to be secondary to upper GI bleed exacerbated by the use of aspirin. Patient hemoglobin on admission was 7.0 patient was transfused with 1 unit PRBC started on Protonix drip after bolus admitted to monitored bed H&H ordered consult placed to GI – 12/29/2024; patient underwent EGD by Dr. Casper on 12/28/2024 findings and recommendations as below Impressions : - LA Grade C erosive esophagitis with bleeding. Biopsied. Treated with a heater probe. - Zakia-Quezada tear. Treated with a heater probe. - Hiatal hernia. - A fundoplication was found. The wrap appears loose. - No gross lesions in the entire stomach. - No gross lesions in the entire examined duodenum. Recommendations : -- Use Protonix (pantoprazole) 40 mg PO BID for 3 months. Patient hemoglobin down to 7.3 we will continue with monitoring. Repeated H&H at 1400 – 12/31/2023; patient hemoglobin up to 7.9 01/01: H&H 8.3/25%. Platelet count 310. 2. Acute cystitis – Patient urinalysis was abnormal and consistent with UTI started on ceftriaxone – 12/29/2024; patient urine cultures so far positive for an alphahemolytic organism with greater than 100 K CFU and mixed gram-positive and gram-negative organisms with 25K-50K CFU final identification and sensitivities pending – 12/30/2024; patient friend urine culture sensitivities reviewed positive for Aerococcus 10/18 on IV ceftriaxone 3. Acute congestive heart failure–suspected heart failure with preserved ejection fraction – Ordered 2D echo, proBNP. Patient started on diuretics placed on low-sodium diet in addition to fluid restriction and serial monitoring of electrolyte. Also ordered daily weights as well as strict input and output and discontinued patient IV fluids 12/31/2024; Had a good response to diuretic therapy and had a negative fluid balance of 4.7 L over the past 24 hours will continue with diuretic therapy was relaxing her fluid restriction per her request. 2D echo obtained did show normal LV size. Moderate concentric left ventricular hypertrophy. The left ventricular ejection fraction is 75 %.Left ventricular systolic function is normal. Resting LV gradient 4 mmHg.Valsalva LV gradient 47 mmHg. Plan is to continue with diuretic therapy for an additional day 01/01: Patient on room air, pulse ox 94%. Hypoxia resolved. 4. Peripheral arterial disease – Patient is on antiplatelet held on admission 5. New onset diabetes mellitus type 2 – Patient presented with hyperglycemia hemoglobin A1c ordered came back at 7.8. Subsequently placed on Accu-Cheks ACHS as well as 1800 ADA diet 6. Degenerative joint disease – Pain meds as needed 7. Hepatosteatosis – Consult was placed to GI on admission 8. Hypertension – Blood pressure controlled, home medications continued with dose adjustment as needed 9. Mild intermittent asthma – Currently not in exacerbation aerosol treatments as needed 10. GERD/history of Sarmiento's esophagus - Previous Robbie fundoplication; PPI as above 11. Hypothyroidism – Patient is on levothyroxine home dose continued 12. Remote history of DVT – Patient was treated appropriately 13. Class II obesity with BMI of 39.4 – Complicating care weight loss advised 14. DVT prophylaxis – Bilateral SCDs 15. Hypokalemia – Corrected per protocol repeat labs ordered in a.m. to assess response to therapy 16. Atelectasis – Did encourage the use of incentive spirometry 17. Physical deconditioning – Requested for PT OT eval and vp digital marketing social media and crm to assist with discharge planning 18. Patient has not moved bowels since admission. Senna S2 tablet twice daily, MiraLAX ordered. Dulcolax also ordered Microbiology Past 72 Hours 12/27/24 11:23 Urine, Clean Catch Urine Culture - Final Aerococcus urinae Mixed Gram Pos & Gram Neg Org Laboratory Results 12/31/24 21:15: POC Glucose 212 H 01/01/25 06:43: POC Glucose 176 H 01/01/25 10:02: POC Glucose 263 H 01/01/25 15:55: POC Glucose 208 H Charges/Coding Visit Charges Inpatient E&M: 59549 Subs Hosp L2
[2025-01-01] MEDS: Senna/Docusate Sodium 1 Tablet 2 TABLET PO ×2 (12:42→20:56)
[2025-01-01] MEDS: Polyethylene Glycol 3350 17 GM PACKET PO ×2 (12:42→20:56)
--- NOTE | 2025-01-01 15:50 | CASEMGMT ---
Addendum entered by Claire Lazo 01/01/25 16:42: Social Work Referral made via email to TCU. SW to follow up on Friday. EPI [place] Original Note: Social Work SW spoke w/physician, he states spoke w/pt and pt does not feel she can manage at home, she is not walking well. PT/OT are pending. SW met w/pt in room to review discharge options. Pt confirms she does not feel she can return home, and is agreeable to SNF placement. SW provided to pt a list via [facility] of halfway facilities in network w/pt's insurance, in pt's preferred geographic area, and complete w/quality and resource use data. Pt would like 1. [facility]CU or 2. [place]. SW will follow up w/referral to TCU today, and follow up Friday w/TCU and additional referrals if needed. EPI [place]
--- NOTE | 2025-01-01 21:10 | RAD_ITS ---
PROCEDURE: CHEST 1 VIEW (PORTABLE) 01/01/2025 REASON FOR EXAM: HYPOXIA TECHNIQUE: Frontal view of the chest. COMPARISON: 12/28/2024. FINDINGS: The heart is normal in size. Elevation of the left hemidiaphragm. Left basilar opacity with a linear morphology favoring atelectasis. Pneumonia is possible but less likely given morphology. No acute osseous abnormalities. Hiatal hernia is present. RAD/Chest 1 View (Portable) IMPRESSION: Left basilar opacity favoring atelectasis over pneumonia. Elevation of the left hemidiaphragm. Hiatal hernia. Reading Location: [id number]
[2025-01-02] VITALS (8 sets, daily range): BP systolic 103–117; BP diastolic 54–67; PULSE 81–88; RESP 16–18; TEMP 36.5–36.9; O2SAT 94–96; BMI 34.9
[2025-01-02 04:47] LABS: Hematocrit 26.9 % (37-47); Hemoglobin 8.7 g/dL (12.0-15.0); Immature Granulocytes Count 0.060 X10^3/uL (0.0-0.0); Mean Corp Hgb Conc 32.3 g/dL (32-36); Mean Corpuscular Volume 92.4 fL (81-99); Mean Platelet Vol. 9.4 fl (6.2-12.0); NRBC Flagged by Analyzer 0.2 % (0-5); Platelet Count 368 K/mm3 (150-450); RBC Distribution Width CV 14.6 % (11.6-14.6); RBC Distribution Width SD 49.2 fl (35.1-43.9); Red Blood Count 2.91 M/mm3 (4.2-5.4); White Blood Count 8.7 K/mm3 (4.4-11.0)
[2025-01-02 05:05] LABS: Anion Gap 10 (5-15); BUN 21 mg/dL (4-19); BUN/Creat Ratio 25.0 RATIO (10-20); Calcium,Total 8.9 mg/dL (7.6-11.0); Carbon Dioxide 31.5 mmol/L (21.0-32.0); Chloride 94 mmol/L (98-108); Estimated Creatinine Clearance 64.69 ml/min (50-250); Glucose 196 mg/dL (70-99); Potassium 3.5 mmol/L (3.3-5.1)
[2025-01-02] MEDS: Potassium Chloride Oral Tablet 20 MEQ PO ×2 (09:21→17:03)
[2025-01-02] MEDS: Polyethylene Glycol 3350 17 GM PACKET PO ×2 (09:22→20:53)
[2025-01-02] MEDS: Insulin Glargine-YFGN 100 UNIT/ML Pen 10 UNIT SC (09:22)
[2025-01-02] MEDS: Senna/Docusate Sodium 1 Tablet 2 TABLET PO ×2 (09:23→20:53)
--- NOTE | 2025-01-02 11:13 | PN.HOSP_ITS ---
Reason for Visit Chief Complaint: Melena/abdominal pain Objective Data Objective Data Vital Signs: Vital Signs Temp Pulse Resp BP Pulse Ox O2 Del Method O2 Flow Rate 97.8 F 86 17 106/67 96 Nasal Cannula 2 01/02/25 09:16 01/02/25 09:16 01/02/25 09:16 01/02/25 09:16 01/02/25 09:16 01/02/25 10:00 01/02/25 10:00 Oxygen Flow Rate (L/min) 2 Oxygen Delivery Method Nasal Cannula Weight: 203 lb 8 oz Body Mass Index (BMI) 34.9 Intake & Output: Intake and Output for Last 24 Hours 12/31/24 01/01/25 01/02/25 23:59 23:59 23:59 Intake Total 1000 / 1200 890 / 890 250 / 250 Output Total 2826 / 3626 2600 / 2600 Balance -1826 / -2426 -1710 / -1710 250 / 250 Lab / Micro Data 01/02/25 04:30 01/02/25 04:30 Labs: Laboratory Results - last 24 hr 01/01/25 15:55: POC Glucose 208 H 01/01/25 21:39: POC Glucose 226 H 01/02/25 04:30: WBC 8.7, RBC 2.91 L, Hgb 8.7 L, Hct 26.9 L, MCV 92.4, MCH 29.9, MCHC 32.3, RDW Std Deviation 49.2 H, RDW Coeff of Ronnie 14.6, Plt Count 368, MPV 9.4, Immature Gran % (Auto) 0.700, Neut % (Auto) 58.6, Lymph % (Auto) 22.3, [place] % (Auto) 10.1 H, Eos % (Auto) 7.6 H, Baso % (Auto) 0.7, Absolute Neuts (auto) 5.1, Absolute Lymphs (auto) 1.93, Nucleated RBC % 0.2, Sodium 136, Potassium 3.5, Chloride 94 L, Carbon Dioxide 31.5, Anion Gap 10, BUN 21 H, Creatinine 0.84, Estim Creat Clear Calc 64.69, Est GFR (MDRD) Non-Af 73, BUN/Creatinine Ratio 25.0 H, Glucose 196 H, Calcium 8.9 01/02/25 06:46: POC Glucose 183 H Micro: Microbiology 12/27/24 11:23 Urine, Clean Catch Urine Culture - Final Aerococcus urinae Mixed Gram Pos & Gram Neg Org 12/27/24 11:23 Stool Stool Occult Blood (PIA) - Final Occult Blood Positive Radiography Diagnostic Testing: Radiology Impression Chest X-Ray 01/01/25 21:10 IMPRESSION: Left basilar opacity favoring atelectasis over pneumonia. Elevation of the left hemidiaphragm. Hiatal hernia. Reading Location: [address] Physical Exam Narrative Seen and examined. Complain of not moving bowel since he has been here. She did not have a BM yesterday after giving stool softener. Passing flatus. She felt shortness of breath and congestion and Lasix was given last night and chest x-ray was done which shows bilateral basilar atelectasis. Weakness of lower legs. Has not walked. Usually she uses cane/walker when she walks outside at home. She states she has torn left knee meniscus in the past Physical exam General: Alert, Oriented x3, Cooperative. BMI 34.9 kg/m² HEENT: Atraumatic, PERRLA, EOMI, Normocephalic. Oral: No Gingival or Mucosal Lesions/ Ulcerations Neck: Supple, No JVD, Negative Carotid Bruits Chest wall/Lungs: Air entry diminished in bilateral lung bases. No crepitation/rhonchi Cardiovascular: Regular rate and rhythm, Normal S1,S2, No M/G/R Abdomen: Bowel Sounds Present, Soft, Non Tender, Non-Distended : No dysuria. No renal angle tenderness. No suprapubic tenderness. Extremities: No pitting edema, Capillary Refill Less than 3 Seconds Skin: No rashes, No breakdown Musculoskeletal: Muscle strength 4/5 at both knees and hip, left more than right. ROM decreased Neurological: Cranial nerves II-XII grossly intact, DTR 2+/4. No acute focal neurological deficit. Psych/Mental Status: Normal Affect, Appropriate. Assessment & Plan Assessment/Plan (1) GI bleed: PLAN: Plan Patient is a 74-year-old lady who presented to the emergency department with abdominal pain with associated nausea and vomiting as well as melenic stools. Patient was found to be anemic with hemoglobin of 7.0 admitted to monitored bed for further management 1. Anemia – Secondary to acute blood loss anemia suspected to be secondary to upper GI bleed exacerbated by the use of aspirin. Patient hemoglobin on admission was 7.0 patient was transfused with 1 unit PRBC started on Protonix drip after bolus admitted to monitored bed H&H ordered consult placed to GI – 12/29/2024; patient underwent EGD by Dr. Casper on 12/28/2024 findings and recommendations as below Impressions : - LA Grade C erosive esophagitis with bleeding. Biopsied. Treated with a heater probe. - Zakia-Quezada tear. Treated with a heater probe. - Hiatal hernia. - A fundoplication was found. The wrap appears loose. - No gross lesions in the entire stomach. - No gross lesions in the entire examined duodenum. Recommendations : -- Use Protonix (pantoprazole) 40 mg PO BID for 3 months. Patient hemoglobin down to 7.3 we will continue with monitoring. Repeated H&H at 1400 – 12/31/2023; patient hemoglobin up to 7.9 01/01: H&H 8.3/25%. Platelet count 310. 01/02: H&H 8.7/26.9, better than she had 7.2 hemoglobin. 2. Acute cystitis – Patient urinalysis was abnormal and consistent with UTI started on ceftriaxone – 12/29/2024; patient urine cultures so far positive for an alphahemolytic organism with greater than 100 K CFU and mixed gram-positive and gram-negative organisms with 25K-50K CFU final identification and sensitivities pending – 12/30/2024; patient friend urine culture sensitivities reviewed positive for Aerococcus 01/01 on IV ceftriaxone 01/02: No leukocytosis. H&H 3. Acute congestive heart failure–suspected heart failure with preserved ejection fraction – Ordered 2D echo, proBNP. Patient started on diuretics placed on low-sodium diet in addition to fluid restriction and serial monitoring of electrolyte. Also ordered daily weights as well as strict input and output and discontinued patient IV fluids 12/31/2024; Had a good response to diuretic therapy and had a negative fluid balance of 4.7 L over the past 24 hours will continue with diuretic therapy was relaxing her fluid restriction per her request. 2D echo obtained did show normal LV size. Moderate concentric left ventricular hypertrophy. The left ventricular ejection fraction is 75 %.Left ventricular systolic function is normal. Resting LV gradient 4 mmHg.Valsalva LV gradient 47 mmHg. Plan is to continue with diuretic therapy for an additional day 01/01: Patient on room air, pulse ox 94%. Hypoxia resolved. 01/02: Repeat chest x-ray shows bibasilar atelectasis. Encouraged incentive spirometry and PEP. 4. Peripheral arterial disease – Patient is on antiplatelet held on admission 5. New onset diabetes mellitus type 2 – Patient presented with hyperglycemia hemoglobin A1c ordered came back at 7.8. Subsequently placed on Accu-Cheks ACHS as well as 1800 ADA diet 6. Degenerative joint disease – Pain meds as needed 7. Hepatosteatosis – Consult was placed to GI on admission 8. Hypertension – Blood pressure controlled, home medications continued with dose adjustment as needed 9. Mild intermittent asthma – Currently not in exacerbation aerosol treatments as needed 10. GERD/history of Sarmiento's esophagus - Previous Robbie fundoplication; PPI as above 11. Hypothyroidism – Patient is on levothyroxine home dose continued 12. Remote history of DVT – Patient was treated appropriately 13. Class II obesity with BMI of 39.4 – Complicating care weight loss advised 14. DVT prophylaxis – Bilateral SCDs 15. Hypokalemia – Corrected per protocol repeat labs ordered in a.m. to assess response to therapy 16. Atelectasis – Did encourage the use of incentive spirometry 17. Physical deconditioning – Requested for PT OT eval and psychotherapist social worker to assist with discharge planning 18. 01/01: Patient has not moved bowels since admission. Senna S2 tablet twice daily, MiraLAX ordered. Dulcolax also ordered 01/02: She did not had bowel movement yesterday. Dulcolax 20 mg 1 dose and soapsuds enema ordered Microbiology Past 72 Hours 12/27/24 11:23 Urine, Clean Catch Urine Culture - Final Aerococcus urinae Mixed Gram Pos & Gram Neg Org Laboratory Results 01/01/25 15:55: POC Glucose 208 H 01/01/25 21:39: POC Glucose 226 H 01/02/25 04:30: WBC 8.7, RBC 2.91 L, Hgb 8.7 L, Hct 26.9 L, MCV 92.4, MCH 29.9, MCHC 32.3, RDW Std Deviation 49.2 H, RDW Coeff of Ronnie 14.6, Plt Count 368, MPV 9.4, Immature Gran % (Auto) 0.700, Neut % (Auto) 58.6, Lymph % (Auto) 22.3, [place] % (Auto) 10.1 H, Eos % (Auto) 7.6 H, Baso % (Auto) 0.7, Absolute Neuts (auto) 5.1, Absolute Lymphs (auto) 1.93, Nucleated RBC % 0.2, Sodium 136, Potassium 3.5, Chloride 94 L, Carbon Dioxide 31.5, Anion Gap 10, BUN 21 H, Creatinine 0.84, Estim Creat Clear Calc 64.69, Est GFR (MDRD) Non-Af 73, BUN/Creatinine Ratio 25.0 H, Glucose 196 H, Calcium 8.9 01/02/25 06:46: POC Glucose 183 H Charges/Coding Visit Charges Inpatient E&M: 46600 Subs Hosp L2
[2025-01-02] MEDS: Lactobacillis Acidophilus 1 CAP PO ×2 (13:16→20:53)
[2025-01-03] VITALS (9 sets, daily range): BP systolic 106–152; BP diastolic 55–86; PULSE 73–88; RESP 16–18; TEMP 36.3–36.6; O2SAT 87–99; BMI 34.1
[2025-01-03] MEDS: Albuterol 2.5 MG/3 ML VIAL.NEB. INHALATION (01:52)
[2025-01-03 05:45] LABS: Hematocrit 28.1 % (37-47); Hemoglobin 8.9 g/dL (12.0-15.0); Immature Granulocytes Count 0.030 X10^3/uL (0.0-0.0); Mean Corp Hgb Conc 31.7 g/dL (32-36); Mean Corpuscular Volume 92.4 fL (81-99); Mean Platelet Vol. 9.3 fl (6.2-12.0); NRBC Flagged by Analyzer 0 % (0-5); Platelet Count 394 K/mm3 (150-450); RBC Distribution Width CV 14.2 % (11.6-14.6); RBC Distribution Width SD 47.8 fl (35.1-43.9); Red Blood Count 3.04 M/mm3 (4.2-5.4); White Blood Count 10.2 K/mm3 (4.4-11.0)
[2025-01-03 06:08] LABS: Anion Gap 10 (5-15); BUN 17 mg/dL (4-19); BUN/Creat Ratio 23.7 RATIO (10-20); Calcium,Total 8.6 mg/dL (7.6-11.0); Carbon Dioxide 30.9 mmol/L (21.0-32.0); Chloride 95 mmol/L (98-108); Estimated Creatinine Clearance 67.93 ml/min (50-250); Glucose 158 mg/dL (70-99); Potassium 3.4 mmol/L (3.3-5.1)
[2025-01-03] MEDS: Polyethylene Glycol 3350 17 GM PACKET PO (08:19)
[2025-01-03] MEDS: Insulin Glargine-YFGN 100 UNIT/ML Pen 10 UNIT SC (08:29)
[2025-01-03] MEDS: Potassium Chloride Oral Tablet 20 MEQ PO (08:38)
[2025-01-03] MEDS: Lactobacillis Acidophilus 1 CAP PO (08:39)
[2025-01-03] MEDS: Senna/Docusate Sodium 1 Tablet 2 TABLET PO (08:39)
--- NOTE | 2025-01-03 09:22 | PCM.PN.HOSP ---
Reason for Visit Chief Complaint: Melena/abdominal pain Objective Data Objective Data Vital Signs: Vital Signs Temp Pulse Resp BP Pulse Ox O2 Del Method O2 Flow Rate 97.9 F 80 18 152/68 H 87 Room Air 2 01/03/25 08:30 01/03/25 08:30 01/03/25 08:30 01/03/25 08:30 01/03/25 09:18 01/03/25 09:18 01/03/25 08:30 Oxygen Flow Rate (L/min) 2 Oxygen Delivery Method Room Air Weight: 199 lb Body Mass Index (BMI) 34.1 Intake & Output: Intake and Output for Last 24 Hours 01/01/25 01/02/25 01/03/25 23:59 23:59 23:59 Intake Total 890 / 890 490 / 490 Output Total 2600 / 2600 1 / 501 500 / 500 Balance -1710 / -1710 489 / -11 -500 / -500 Lab / Micro Data 01/03/25 05:29 01/03/25 05:29 Labs: Laboratory Results - last 24 hr 01/02/25 11:15: POC Glucose 237 H 01/02/25 12:20: POC Glucose 223 H 01/02/25 15:19: POC Glucose 209 H 01/02/25 20:39: POC Glucose 233 H 01/03/25 05:29: WBC 10.2, RBC 3.04 L, Hgb 8.9 L, Hct 28.1 L, MCV 92.4, MCH 29.3, MCHC 31.7 L, RDW Std Deviation 47.8 H, RDW Coeff of Ronnie 14.2, Plt Count 394, MPV 9.3, Immature Gran % (Auto) 0.300, Neut % (Auto) 67.0, Lymph % (Auto) 16.9 L, [place] % (Auto) 8.0, Eos % (Auto) 7.1 H, Baso % (Auto) 0.7, Absolute Neuts (auto) 6.8, Absolute Lymphs (auto) 1.72, Nucleated RBC % 0, Sodium 136, Potassium 3.4, Chloride 95 L, Carbon Dioxide 30.9, Anion Gap 10, BUN 17, Creatinine 0.72, Estim Creat Clear Calc 67.93, Est GFR (MDRD) Non-Af 88, BUN/Creatinine Ratio 23.7 H, Glucose 158 H, Calcium 8.6 Micro: Microbiology 12/27/24 11:23 Urine, Clean Catch Urine Culture - Final Aerococcus urinae Mixed Gram Pos & Gram Neg Org 12/27/24 11:23 Stool Stool Occult Blood (PIA) - Final Occult Blood Positive Physical Exam Narrative Seen and examined. Complain of not moving bowel since he has been here. She did not have a BM yesterday after giving stool softener. Passing flatus. She felt shortness of breath and congestion and Lasix was given last night and chest x-ray was done which shows bilateral basilar atelectasis. Weakness of lower legs. Has not walked. Usually she uses cane/walker when she walks outside at home. She states she has torn left knee meniscus in the past Physical exam General: Alert, Oriented x3, Cooperative. BMI 34.9 kg/m² HEENT: Atraumatic, PERRLA, EOMI, Normocephalic. Oral: No Gingival or Mucosal Lesions/ Ulcerations Neck: Supple, No JVD, Negative Carotid Bruits Chest wall/Lungs: Air entry diminished in bilateral lung bases. No crepitation/rhonchi Cardiovascular: Regular rate and rhythm, Normal S1,S2, No M/G/R Abdomen: Bowel Sounds Present, Soft, Non Tender, Non-Distended : No dysuria. No renal angle tenderness. No suprapubic tenderness. Extremities: No pitting edema, Capillary Refill Less than 3 Seconds Skin: No rashes, No breakdown Musculoskeletal: Muscle strength 4/5 at both knees and hip, left more than right. ROM decreased Neurological: Cranial nerves II-XII grossly intact, DTR 2+/4. No acute focal neurological deficit. Psych/Mental Status: Normal Affect, Appropriate. Assessment & Plan Assessment/Plan (1) GI bleed: PLAN: Plan Patient is a 74-year-old lady who presented to the emergency department with abdominal pain with associated nausea and vomiting as well as melenic stools. Patient was found to be anemic with hemoglobin of 7.0 admitted to monitored bed for further management 1. Anemia – Secondary to acute blood loss anemia suspected to be secondary to upper GI bleed exacerbated by the use of aspirin. Patient hemoglobin on admission was 7.0 patient was transfused with 1 unit PRBC started on Protonix drip after bolus admitted to monitored bed H&H ordered consult placed to GI – 12/29/2024; patient underwent EGD by Dr. Casper on 12/28/2024 findings and recommendations as below Impressions : - LA Grade C erosive esophagitis with bleeding. Biopsied. Treated with a heater probe. - Zakia-Quezada tear. Treated with a heater probe. - Hiatal hernia. - A fundoplication was found. The wrap appears loose. - No gross lesions in the entire stomach. - No gross lesions in the entire examined duodenum. Recommendations : -- Use Protonix (pantoprazole) 40 mg PO BID for 3 months. Patient hemoglobin down to 7.3 we will continue with monitoring. Repeated H&H at 1400 – 12/31/2023; patient hemoglobin up to 7.9 01/01: H&H 8.3/25%. Platelet count 310. 01/02: H&H 8.7/26.9, better than she had 7.2 hemoglobin. 01/03 H&H improving. 2. Acute cystitis – Patient urinalysis was abnormal and consistent with UTI started on ceftriaxone – 12/29/2024; patient urine cultures so far positive for an alphahemolytic organism with greater than 100 K CFU and mixed gram-positive and gram-negative organisms with 25K-50K CFU final identification and sensitivities pending – 12/30/2024; patient friend urine culture sensitivities reviewed positive for Aerococcus 01/01 on IV ceftriaxone 01/02: No leukocytosis. H&H 3. Acute congestive heart failure–suspected heart failure with preserved ejection fraction – Ordered 2D echo, proBNP. Patient started on diuretics placed on low-sodium diet in addition to fluid restriction and serial monitoring of electrolyte. Also ordered daily weights as well as strict input and output and discontinued patient IV fluids 12/31/2024; Had a good response to diuretic therapy and had a negative fluid balance of 4.7 L over the past 24 hours will continue with diuretic therapy was relaxing her fluid restriction per her request. 2D echo obtained did show normal LV size. Moderate concentric left ventricular hypertrophy. The left ventricular ejection fraction is 75 %.Left ventricular systolic function is normal. Resting LV gradient 4 mmHg.Valsalva LV gradient 47 mmHg. Plan is to continue with diuretic therapy for an additional day 01/01: Patient on room air, pulse ox 94%. Hypoxia resolved. 01/02: Repeat chest x-ray shows bibasilar atelectasis. Encouraged incentive spirometry and PEP. 01/03: Patient completed 7 days of IV ceftriaxone therefore discontinued 4. Peripheral arterial disease – Patient is on antiplatelet held on admission 5. New onset diabetes mellitus type 2 – Patient presented with hyperglycemia hemoglobin A1c ordered came back at 7.8. Subsequently placed on Accu-Cheks ACHS as well as 1800 ADA diet 6. Degenerative joint disease – Pain meds as needed 7. Hepatosteatosis – Consult was placed to GI on admission 8. Hypertension – Blood pressure controlled, home medications continued with dose adjustment as needed 9. Mild intermittent asthma – Currently not in exacerbation aerosol treatments as needed 10. GERD/history of Sarmiento's esophagus - Previous Robbie fundoplication; PPI as above 11. Hypothyroidism – Patient is on levothyroxine home dose continued 12. Remote history of DVT – Patient was treated appropriately 13. Class II obesity with BMI of 39.4 – Complicating care weight loss advised 14. DVT prophylaxis – Bilateral SCDs 15. Hypokalemia – Corrected per protocol repeat labs ordered in a.m. to assess response to therapy 16. Atelectasis – Did encourage the use of incentive spirometry 17. Physical deconditioning – Requested for PT OT eval and social organization professor to assist with discharge planning 18. 01/01: Patient has not moved bowels since admission. Senna S2 tablet twice daily, MiraLAX ordered. Dulcolax also ordered 01/02: She did not had bowel movement yesterday. Dulcolax 20 mg 1 dose and soapsuds enema ordered 01/03: She had a bowel movement yesterday. She passed out once she was defecating and then another time she was trying to do physical therapy. Both were witnessed. No major injury. She recovered very quickly. Syncope possible due to vasovagal reflex accompanied with physical deconditioning. Patient on Lasix 41 IV changed to oral. Orthostatic vitals ordered 12/27/24 11:23 Urine, Clean Catch Urine Culture - Final Aerococcus urinae Mixed Gram Pos & Gram Neg Org Laboratory Results 01/02/25 11:15: POC Glucose 237 H 01/02/25 12:20: POC Glucose 223 H 01/02/25 15:19: POC Glucose 209 H 01/02/25 20:39: POC Glucose 233 H 01/03/25 05:29: WBC 10.2, RBC 3.04 L, Hgb 8.9 L, Hct 28.1 L, MCV 92.4, MCH 29.3, MCHC 31.7 L, RDW Std Deviation 47.8 H, RDW Coeff of Ronnie 14.2, Plt Count 394, MPV 9.3, Immature Gran % (Auto) 0.300, Neut % (Auto) 67.0, Lymph % (Auto) 16.9 L, [place] % (Auto) 8.0, Eos % (Auto) 7.1 H, Baso % (Auto) 0.7, Absolute Neuts (auto) 6.8, Absolute Lymphs (auto) 1.72, Nucleated RBC % 0, Sodium 136, Potassium 3.4, Chloride 95 L, Carbon Dioxide 30.9, Anion Gap 10, BUN 17, Creatinine 0.72, Estim Creat Clear Calc 67.93, Est GFR (MDRD) Non-Af 88, BUN/Creatinine Ratio 23.7 H, Glucose 158 H, Calcium 8.6 Laboratory Results 01/01/25 15:55: POC Glucose 208 H 01/01/25 21:39: POC Glucose 226 H 01/02/25 04:30: WBC 8.7, RBC 2.91 L, Hgb 8.7 L, Hct 26.9 L, MCV 92.4, MCH 29.9, MCHC 32.3, RDW Std Deviation 49.2 H, RDW Coeff of Ronnie 14.6, Plt Count 368, MPV 9.4, Immature Gran % (Auto) 0.700, Neut % (Auto) 58.6, Lymph % (Auto) 22.3, [place] % (Auto) 10.1 H, Eos % (Auto) 7.6 H, Baso % (Auto) 0.7, Absolute Neuts (auto) 5.1, Absolute Lymphs (auto) 1.93, Nucleated RBC % 0.2, Sodium 136, Potassium 3.5, Chloride 94 L, Carbon Dioxide 31.5, Anion Gap 10, BUN 21 H, Creatinine 0.84, Estim Creat Clear Calc 64.69, Est GFR (MDRD) Non-Af 73, BUN/Creatinine Ratio 25.0 H, Glucose 196 H, Calcium 8.9 01/02/25 06:46: POC Glucose 183 H
--- NOTE | 2025-01-03 10:42 | TREXTCAR_ITS ---
Diet Diet Order/Speech Therapy: INPATIENT Hospital Diet / Speech Therapy Order(s) 12/30/24 11:26 Diet: Cardiac - Heart Healthy Food consistency:: Regular Liquid Consistency:: Regular/Thin Dietary Modifications:: Consistent Carbohydrate Fluid restriction:: 2000 mL DC O2, CPAP, BIPAP needs Home O2 Discharge instructions: Yes Type of respiratory needs?: Oxygen Oxygen frequency: Continuous Continuous oxygen liters per minute: 2 Problem/Diagnosis (1) GI bleed: Status: Acute Code(s): K92.2 - Gastrointestinal hemorrhage, unspecified Plan Patient is a 74-year-old lady who presented to the emergency department with abdominal pain with associated nausea and vomiting as well as melenic stools. Patient was found to be anemic with hemoglobin of 7.0 admitted to monitored bed for further management 1. Anemia – Secondary to acute blood loss anemia suspected to be secondary to upper GI bleed exacerbated by the use of aspirin. Patient hemoglobin on admission was 7.0 patient was transfused with 1 unit PRBC started on Protonix drip after bolus admitted to monitored bed H&H ordered consult placed to GI – 12/29/2024; patient underwent EGD by Dr. Casper on 12/28/2024 findings and recommendations as below Impressions : - LA Grade C erosive esophagitis with bleeding. Biopsied. Treated with a heater probe. - Zakia-Quezada tear. Treated with a heater probe. - Hiatal hernia. - A fundoplication was found. The wrap appears loose. - No gross lesions in the entire stomach. - No gross lesions in the entire examined duodenum. Recommendations : -- Use Protonix (pantoprazole) 40 mg PO BID for 3 months. Patient hemoglobin down to 7.3 we will continue with monitoring. Repeated H&H at 1400 – 12/31/2023; patient hemoglobin up to 7.9 01/01: H&H 8.3/25%. Platelet count 310. 01/02: H&H 8.7/26.9, better than she had 7.2 hemoglobin. 01/03 H&H improving. 2. Acute cystitis – Patient urinalysis was abnormal and consistent with UTI started on ceftriaxone – 12/29/2024; patient urine cultures so far positive for an alphahemolytic organism with greater than 100 K CFU and mixed gram-positive and gram-negative organisms with 25K-50K CFU final identification and sensitivities pending – 12/30/2024; patient friend urine culture sensitivities reviewed positive for Aerococcus 01/01 on IV ceftriaxone 01/02: No leukocytosis. H&H 3. Acute congestive heart failure–suspected heart failure with preserved ejection fraction – Ordered 2D echo, proBNP. Patient started on diuretics placed on low-sodium diet in addition to fluid restriction and serial monitoring of electrolyte. Also ordered daily weights as well as strict input and output and discontinued patient IV fluids 12/31/2024; Had a good response to diuretic therapy and had a negative fluid balance of 4.7 L over the past 24 hours will continue with diuretic therapy was relaxing her fluid restriction per her request. 2D echo obtained did show normal LV size. Moderate concentric left ventricular hypertrophy. The left ventricular ejection fraction is 75 %.Left ventricular systolic function is normal. Resting LV gradient 4 mmHg.Valsalva LV gradient 47 mmHg. Plan is to continue with diuretic therapy for an additional day 01/01: Patient on room air, pulse ox 94%. Hypoxia resolved. 01/02: Repeat chest x-ray shows bibasilar atelectasis. Encouraged incentive spirometry and PEP. 01/03: Patient completed 7 days of IV ceftriaxone therefore discontinued 4. Peripheral arterial disease – Patient is on antiplatelet held on admission 5. New onset diabetes mellitus type 2 – Patient presented with hyperglycemia hemoglobin A1c ordered came back at 7.8. Subsequently placed on Accu-Cheks ACHS as well as 1800 ADA diet 6. Degenerative joint disease – Pain meds as needed 7. Hepatosteatosis – Consult was placed to GI on admission 8. Hypertension – Blood pressure controlled, home medications continued with dose adjustment as needed 9. Mild intermittent asthma – Currently not in exacerbation aerosol treatments as needed 10. GERD/history of Sarmiento's esophagus - Previous Robbie fundoplication; PPI as above 11. Hypothyroidism – Patient is on levothyroxine home dose continued 12. Remote history of DVT – Patient was treated appropriately 13. Class II obesity with BMI of 39.4 – Complicating care weight loss advised 14. DVT prophylaxis – Bilateral SCDs 15. Hypokalemia – Corrected per protocol repeat labs ordered in a.m. to assess response to therapy 16. Atelectasis – Did encourage the use of incentive spirometry 17. Physical deconditioning – Requested for PT OT eval and social insurance specialist to assist with discharge planning 18. 01/01: Patient has not moved bowels since admission. Senna S2 tablet twice daily, MiraLAX ordered. Dulcolax also ordered 01/02: She did not had bowel movement yesterday. Dulcolax 20 mg 1 dose and soapsuds enema ordered 01/03: She had a bowel movement yesterday. She passed out once she was defecating and then another time she was trying to do physical therapy. Both were witnessed. No major injury. She recovered very quickly. Syncope possible due to vasovagal reflex accompanied with physical deconditioning. Patient on Lasix 41 IV changed to oral. Orthostatic vitals ordered 12/27/24 11:23 Urine, Clean Catch Urine Culture - Final Aerococcus urinae Mixed Gram Pos & Gram Neg Org Laboratory Results 01/02/25 11:15: POC Glucose 237 H 01/02/25 12:20: POC Glucose 223 H 01/02/25 15:19: POC Glucose 209 H 01/02/25 20:39: POC Glucose 233 H 01/03/25 05:29: WBC 10.2, RBC 3.04 L, Hgb 8.9 L, Hct 28.1 L, MCV 92.4, MCH 29.3, MCHC 31.7 L, RDW Std Deviation 47.8 H, RDW Coeff of Ronnie 14.2, Plt Count 394, MPV 9.3, Immature Gran % (Auto) 0.300, Neut % (Auto) 67.0, Lymph % (Auto) 16.9 L, [place] % (Auto) 8.0, Eos % (Auto) 7.1 H, Baso % (Auto) 0.7, Absolute Neuts (auto) 6.8, Absolute Lymphs (auto) 1.72, Nucleated RBC % 0, Sodium 136, Potassium 3.4, Chloride 95 L, Carbon Dioxide 30.9, Anion Gap 10, BUN 17, Creatinine 0.72, Estim Creat Clear Calc 67.93, Est GFR (MDRD) Non-Af 88, BUN/Creatinine Ratio 23.7 H, Glucose 158 H, Calcium 8.6 Laboratory Results 01/01/25 15:55: POC Glucose 208 H 01/01/25 21:39: POC Glucose 226 H 01/02/25 04:30: WBC 8.7, RBC 2.91 L, Hgb 8.7 L, Hct 26.9 L, MCV 92.4, MCH 29.9, MCHC 32.3, RDW Std Deviation 49.2 H, RDW Coeff of Ronnie 14.6, Plt Count 368, MPV 9.4, Immature Gran % (Auto) 0.700, Neut % (Auto) 58.6, Lymph % (Auto) 22.3, [place] % (Auto) 10.1 H, Eos % (Auto) 7.6 H, Baso % (Auto) 0.7, Absolute Neuts (auto) 5.1, Absolute Lymphs (auto) 1.93, Nucleated RBC % 0.2, Sodium 136, Potassium 3.5, Chloride 94 L, Carbon Dioxide 31.5, Anion Gap 10, BUN 21 H, Creatinine 0.84, Estim Creat Clear Calc 64.69, Est GFR (MDRD) Non-Af 73, BUN/Creatinine Ratio 25.0 H, Glucose 196 H, Calcium 8.9 01/02/25 06:46: POC Glucose 183 H Allergies/Procedures Done in Hospital Allergies latex Allergy (Unknown, Verified 12/27/24 09:55) PT UNSURE OF REACTION adhesive Allergy (Verified 12/27/24 09:55) Unknown benzocaine (From Cetacaine) Allergy (Verified 12/27/24 09:55) Unknown butamben (From Cetacaine) Allergy (Verified 12/27/24 09:55) Vomiting cortisone (Cortisone) Allergy (Verified 12/27/24 09:55) Unknown dipyridamole (From Aggrenox) Allergy (Verified 12/27/24 09:55) Unknown lansoprazole (From Prevacid) Allergy (Verified 12/27/24 09:55) Unknown meclizine Allergy (Verified 12/27/24 09:55) Unknown methylprednisolone acetate (From Depo-Medrol) Allergy (Verified 12/27/24 09:55) Angioedema metoprolol Allergy (Verified 12/27/24 09:55) Unknown omeprazole (From Prilosec) Allergy (Verified 12/27/24 09:55) Unknown omeprazole magnesium (From Prilosec) Allergy (Verified 12/27/24 09:55) Unknown oxybutynin chloride (From Ditropan) Allergy (Verified 12/27/24 09:55) Unknown povidone-iodine (From Betadine) Allergy (Verified 12/27/24 09:55) Unknown sulfamethoxazole (From Bactrim) Allergy (Verified 12/27/24 09:55) Unknown tegaserod (From Zelnorm) Allergy (Verified 12/27/24 09:55) Hives tegaserod hydrogen maleate (From Zelnorm) Allergy (Verified 12/27/24 09:55) Unknown tetracaine (From Cetacaine) Allergy (Verified 12/27/24 09:55) Unknown tolterodine tartrate (From Detrol) Allergy (Verified 12/27/24 09:55) Unknown trimethoprim (From Bactrim) Allergy (Verified 12/27/24 09:55) Unknown lisinopril Adverse Reaction (Intermediate, Verified 12/27/24 09:55) Angioedema question if try allergy adhesive tape Adverse Reaction (Verified 12/27/24 09:55) Rash PAPER TAPE codeine Adverse Reaction (Verified 12/27/24 09:55) Unknown mirabegron (From Myrbetriq) Adverse Reaction (Verified 12/27/24 09:55) Other tizanidine Adverse Reaction (Verified 12/27/24 09:55) Other vaccine adjuvant system, AS01B liposomal (From Shingrix (PF)) Adverse Reaction (Verified 12/27/24 09:55) Rash varicella-zoster virus glycoprotein E, recombinant (From Shingrix (PF)) Adverse Reaction (Verified 12/27/24 09:55) Rash Type of Care/Length of Stay Estimated LOS: Convalescent Care Less Than 30 days Type of Care Needed: Skilled Rehab Potential: Good Prognosis: Good Additional Orders/Day of Discharge Day of Discharge: 01/03/25 Dietary and Speech Recommendations Dietitian Recommendations/Changes: Adjust to cardiac; consistent carbohydrate diet with 1500mL fluid restriction. Will monitor weight trends. At time of discharge recommend pt follow a cardiac; CCD with fluid restriction per MD. Discharge Plan Admission Admit Date/Time: 12/27/24 14:42 Attending Provider: Clifton Wells Primary Care Provider: Miryam Riojas Consulting Providers: Clifton Wells; Raul Casper; Sandie Rodriguez; Jacquelin Odell; Adelina Silvestre; Shelia Campos; Keshav Elizondo Discharge Orders/Prescriptions Prescriptions: New acetaminophen 325 mg Tablet 650 mg PO Q6H PRN PRN (Reason: Pain 1-10 Or Fever) Qty: 0 0RF ipratropium-albuterol 0.5 mg-3 mg(2.5 mg base)/3 mL Solution For Nebulization 3 ml inhalation Q4HWA.RT PRNQty: 0 0RF sennosides-docusate sodium [Stimulant Laxative Plus] 8.6-50 mg Tablet 2 tab PO BID Qty: 0 0RF pantoprazole 40 mg Tablet,Delayed Release (Dr/Ec) 40 mg PO BID Qty: 0 0RF L.acidoph,saliva-B.bif-S.therm 175 mg Capsule 1 cap PO BID Qty: 0 0RF furosemide 40 mg Tablet 40 mg PO BIDLX Qty: 0 0RF insulin glargine [Lantus Solostar U-100 Insulin] 100 unit/mL (3 mL) insulin pen 15 unit subcut DAILY 30 Days Qty: 4.5 3RF Rx Instructions: Hold if glucose less than 130 mg/dl ondansetron HCl (PF) 4 mg/2 mL Solution 4 mg PO Q6H PRN (Reason: Nausea/Vomiting) Qty: 0 0RF Continued multivitamin Tablet 1 tab PO DAILY diazepam 5 mg tablet 5 mg PO QHS PRN (Reason: anxiety) cholecalciferol (vitamin D3) 125 mcg (5,000 unit) capsule 125 mcg PO DAILY levothyroxine 88 mcg tablet 88 mcg PO DAILY amlodipine 5 mg tablet 5 mg PO DAILY Azo Cranberry 250 mg tablet,chewable 250 mg PO DAILY gabapentin 100 MG capsule 300 mg PO QHS aspirin 81 MG tablet 81 mg PO DAILY@0800 lactulose 10 gram/15 mL solution 30 ml PO QHS Patient Comments: TAKE (30 mL) by mouth at bedtime for 90 days. Changed spironolactone 25 mg tablet 25 mg PO 1700 30 Days Qty: 30 0RF Referrals / Follow Up: Miryam Riojas MD [Primary Care Provider, Internal Medicine] Disposition Disposition (needs filled in before D/C Order can be placed): [facility]
--- NOTE | 2025-01-03 10:53 | CASEMGMT ---
Addendum entered by Eli Barton 01/03/25 11:30: [facility] has accepted. SWs updated. Eli Barton DC Planning Asst. Original Note: Discharge Planning Referral sent via [facility] to [facility]. Eli Barton DC Planning Asst.
[2025-01-03] MEDS: proMETHazine 25 MG/ML Syringe 12.5 MG IM (11:28)
--- NOTE | 2025-01-03 11:58 | PCM.DC.SUM ---
Providers Date of Admission: 12/27/24 Date of Discharge: 01/03/25 Primary Care Physician: Dr. Miryam Riojas MD Consultations 12/27/24 15:21 Consult: Gastroenterology Routine Consulting Provider: [facility] Reason for Consult: GI bleed EMERGENT Consult: No MD Notified: Yes Date Notified: 12/27/24 Time Notified: 14:44 Method of Notification: ED Physician Initiated Reason For Visit: GI BLEED/ACUTE ANEMIA Diagnosis Discharge Diagnosis (1) GI bleed: Status: Acute Code(s): K92.2 - Gastrointestinal hemorrhage, unspecified Plan Patient is a 74-year-old lady who presented to the emergency department with abdominal pain with associated nausea and vomiting as well as melenic stools. Patient was found to be anemic with hemoglobin of 7.0 admitted to monitored bed for further management 1. Anemia – Secondary to acute blood loss anemia suspected to be secondary to upper GI bleed exacerbated by the use of aspirin. Patient hemoglobin on admission was 7.0 patient was transfused with 1 unit PRBC started on Protonix drip after bolus admitted to monitored bed H&H ordered consult placed to GI – 12/29/2024; patient underwent EGD by Dr. Casper on 12/28/2024 findings and recommendations as below Impressions : - LA Grade C erosive esophagitis with bleeding. Biopsied. Treated with a heater probe. - Zakia-Quezada tear. Treated with a heater probe. - Hiatal hernia. - A fundoplication was found. The wrap appears loose. - No gross lesions in the entire stomach. - No gross lesions in the entire examined duodenum. Recommendations : -- Use Protonix (pantoprazole) 40 mg PO BID for 3 months. Patient hemoglobin down to 7.3 we will continue with monitoring. Repeated H&H at 1400 – 12/31/2023; patient hemoglobin up to 7.9 01/01: H&H 8.3/25%. Platelet count 310. 01/02: H&H 8.7/26.9, better than she had 7.2 hemoglobin. 01/03 H&H improving. Patient had mild nausea no vomiting therefore IM Phenergan given. Zofran and Compazine not effective. Had drowsiness after Phenergan and was monitored. Patient is doing well discussed with RN. Discharge to SNF. 2. Acute cystitis – Patient urinalysis was abnormal and consistent with UTI started on ceftriaxone – 12/29/2024; patient urine cultures so far positive for an alphahemolytic organism with greater than 100 K CFU and mixed gram-positive and gram-negative organisms with 25K-50K CFU final identification and sensitivities pending – 12/30/2024; patient friend urine culture sensitivities reviewed positive for Aerococcus 01/01 on IV ceftriaxone 01/02: No leukocytosis. 01/03: Patient completed about 8 days of IV antibiotics. 3. Acute congestive heart failure–suspected heart failure with preserved ejection fraction – Ordered 2D echo, proBNP. Patient started on diuretics placed on low-sodium diet in addition to fluid restriction and serial monitoring of electrolyte. Also ordered daily weights as well as strict input and output and discontinued patient IV fluids 12/31/2024; Had a good response to diuretic therapy and had a negative fluid balance of 4.7 L over the past 24 hours will continue with diuretic therapy was relaxing her fluid restriction per her request. 2D echo obtained did show normal LV size. Moderate concentric left ventricular hypertrophy. The left ventricular ejection fraction is 75 %.Left ventricular systolic function is normal. Resting LV gradient 4 mmHg.Valsalva LV gradient 47 mmHg. Plan is to continue with diuretic therapy for an additional day 01/01: Patient on room air, pulse ox 94%. Hypoxia resolved. 01/02: Repeat chest x-ray shows bibasilar atelectasis. Encouraged incentive spirometry and PEP. 01/03: Patient completed 7 days of IV ceftriaxone therefore discontinued 4. Peripheral arterial disease – Patient is on antiplatelet held on admission 5. New onset diabetes mellitus type 2 – Patient presented with hyperglycemia hemoglobin A1c ordered came back at 7.8. Subsequently placed on Accu-Cheks ACHS as well as 1800 ADA diet 6. Degenerative joint disease – Pain meds as needed 7. Hepatosteatosis – Consult was placed to GI on admission 8. Hypertension – Blood pressure controlled, home medications continued with dose adjustment as needed 9. Mild intermittent asthma – Currently not in exacerbation aerosol treatments as needed 10. GERD/history of Sarmiento's esophagus - Previous Robbie fundoplication; PPI as above 11. Hypothyroidism – Patient is on levothyroxine home dose continued 12. Remote history of DVT – Patient was treated appropriately 13. Class II obesity with BMI of 39.4 – Complicating care weight loss advised 14. DVT prophylaxis – Bilateral SCDs 15. Hypokalemia – Corrected per protocol repeat labs ordered in a.m. to assess response to therapy 16. Atelectasis – Did encourage the use of incentive spirometry 17. Physical deconditioning – Requested for PT OT eval and 7th grade social studies teacher to assist with discharge planning 18. 01/01: Patient has not moved bowels since admission. Senna S2 tablet twice daily, MiraLAX ordered. Dulcolax also ordered 01/02: She did not had bowel movement yesterday. Dulcolax 20 mg 1 dose and soapsuds enema ordered 01/03: She had a bowel movement yesterday. She passed out once she was defecating and then another time she was trying to do physical therapy. Both were witnessed. No major injury. She recovered very quickly. Syncope possible due to vasovagal reflex accompanied with physical deconditioning. Patient on Lasix 41 IV changed to oral. Orthostatic vitals ordered Discharge medication reconciliation done. Discharge follow-up instructions completed. Discharge process discussed with the patient and all questions were answered to patient's satisfaction. Follow with PCP in 1 to 2 weeks Total time spent, exact 35 minutes on discharge meds reconciliation, examination, coordination of care with nurses and ancillary staff, review of imaging and blood test and discussion with the patient on follow-up instructions. 12/27/24 11:23 Urine, Clean Catch Urine Culture - Final Aerococcus urinae Mixed Gram Pos & Gram Neg Org Laboratory Results 01/02/25 11:15: POC Glucose 237 H 01/02/25 12:20: POC Glucose 223 H 01/02/25 15:19: POC Glucose 209 H 01/02/25 20:39: POC Glucose 233 H 01/03/25 05:29: WBC 10.2, RBC 3.04 L, Hgb 8.9 L, Hct 28.1 L, MCV 92.4, MCH 29.3, MCHC 31.7 L, RDW Std Deviation 47.8 H, RDW Coeff of Ronnie 14.2, Plt Count 394, MPV 9.3, Immature Gran % (Auto) 0.300, Neut % (Auto) 67.0, Lymph % (Auto) 16.9 L, Mccracken % (Auto) 8.0, Eos % (Auto) 7.1 H, Baso % (Auto) 0.7, Absolute Neuts (auto) 6.8, Absolute Lymphs (auto) 1.72, Nucleated RBC % 0, Sodium 136, Potassium 3.4, Chloride 95 L, Carbon Dioxide 30.9, Anion Gap 10, BUN 17, Creatinine 0.72, Estim Creat Clear Calc 67.93, Est GFR (MDRD) Non-Af 88, BUN/Creatinine Ratio 23.7 H, Glucose 158 H, Calcium 8.6 Laboratory Results 01/01/25 15:55: POC Glucose 208 H 01/01/25 21:39: POC Glucose 226 H 01/02/25 04:30: WBC 8.7, RBC 2.91 L, Hgb 8.7 L, Hct 26.9 L, MCV 92.4, MCH 29.9, MCHC 32.3, RDW Std Deviation 49.2 H, RDW Coeff of Ronnie 14.6, Plt Count 368, MPV 9.4, Immature Gran % (Auto) 0.700, Neut % (Auto) 58.6, Lymph % (Auto) 22.3, Mccracken % (Auto) 10.1 H, Eos % (Auto) 7.6 H, Baso % (Auto) 0.7, Absolute Neuts (auto) 5.1, Absolute Lymphs (auto) 1.93, Nucleated RBC % 0.2, Sodium 136, Potassium 3.5, Chloride 94 L, Carbon Dioxide 31.5, Anion Gap 10, BUN 21 H, Creatinine 0.84, Estim Creat Clear Calc 64.69, Est GFR (MDRD) Non-Af 73, BUN/Creatinine Ratio 25.0 H, Glucose 196 H, Calcium 8.9 01/02/25 06:46: POC Glucose 183 H Medications at Discharge Home Medications gabapentin 100 mg capsule 300 mg PO QHS PAIN 01/11/14 diazepam 5 mg tablet 5 mg PO QHS PRN anxiety 01/13/19 aspirin 81 mg tablet,delayed release 81 mg PO DAILY@0800 HEART 02/09/19 multivitamin 1 tab PO DAILY SUPPLEMENT 04/08/19 cholecalciferol (vitamin D3) 125 mcg (5,000 unit) capsule 125 mcg PO DAILY SUPPLEMENT 10/11/19 levothyroxine 88 mcg tablet 88 mcg PO DAILY THYROID 07/26/22 cranberry fruit concentrate 250 mg chewable tablet (Azo Cranberry) 250 mg PO DAILY URINARY HEALTH 01/31/23 amlodipine 5 mg tablet 5 mg PO DAILY HTN 10/15/24 lactulose 10 gram/15 mL oral solution 30 ml PO QHS 12/27/24 L.acidophil,salivari-Bifido bifidum-Strep thermoph 175 mg capsule 1 cap PO BID #0 caps 01/03/25 acetaminophen 325 mg tablet 650 mg (2 x 325 mg) PO Q6H PRN PRN Pain 1-10 Or Fever #0 tabs 01/03/25 furosemide 40 mg tablet 40 mg PO BIDLX #0 tabs 01/03/25 insulin glargine 100 unit/mL (3 mL) subcutaneous pen (Lantus Solostar U-100 Insulin) 15 unit (0.15 mL) subcut DAILY 1 month #4.5 mL 01/03/25 ipratropium 0.5 mg-albuterol 3 mg (2.5 mg base)/3 mL nebulization soln 3 ml inhalation Q4HWA.RT PRN #0 mL 01/03/25 ondansetron HCl (PF) 4 mg/2 mL injection solution 4 mg (2 mL) PO Q6H PRN Nausea/Vomiting #0 mL 01/03/25 pantoprazole 40 mg tablet,delayed release 40 mg PO BID #0 tabs 01/03/25 sennosides 8.6 mg-docusate sodium 50 mg tablet (Stimulant Laxative Plus) 2 tab PO BID #0 tabs 01/03/25 spironolactone 25 mg tablet 25 mg PO 1700 HTN 30 days #30 tabs 01/03/25 Physical Exam Narrative Seen and examined. She had good bowel movement yesterday. While defecating she passed out but woke up good. While she was having physical therapy, she passed out yesterday. In the morning she was good but later on days she had mild nausea and vomiting, got better with IV Phenergan Physical exam General: Alert, Oriented x3, Cooperative. BMI 34.9 kg/m² HEENT: Atraumatic, PERRLA, EOMI, Normocephalic. Oral: No Gingival or Mucosal Lesions/ Ulcerations Neck: Supple, No JVD, Negative Carotid Bruits Chest wall/Lungs: Air entry diminished in bilateral lung bases. No crepitation/rhonchi Cardiovascular: Regular rate and rhythm, Normal S1,S2, No M/G/R Abdomen: Bowel Sounds Present, Soft, Non Tender, Non-Distended : No dysuria. No renal angle tenderness. No suprapubic tenderness. Extremities: No pitting edema, Capillary Refill Less than 3 Seconds Skin: No rashes, No breakdown Musculoskeletal: Muscle strength 4/5 at both knees and hip, left more than right. ROM decreased. Physically deconditioned. Neurological: Cranial nerves II-XII grossly intact, DTR 2+/4. No acute focal neurological deficit. Psych/Mental Status: Normal Affect, Appropriate. Weight / BMI Weight Weight: 199 lb Body Mass Index (BMI) 34.1 ABG / Lab / Microbiology Data 01/03/25 05:29 01/03/25 05:29 Laboratory: Laboratory Results - last 24 hr 01/02/25 15:19: POC Glucose 209 H 01/02/25 20:39: POC Glucose 233 H 01/03/25 05:29: WBC 10.2, RBC 3.04 L, Hgb 8.9 L, Hct 28.1 L, MCV 92.4, MCH 29.3, MCHC 31.7 L, RDW Std Deviation 47.8 H, RDW Coeff of Ronnie 14.2, Plt Count 394, MPV 9.3, Immature Gran % (Auto) 0.300, Neut % (Auto) 67.0, Lymph % (Auto) 16.9 L, Mccracken % (Auto) 8.0, Eos % (Auto) 7.1 H, Baso % (Auto) 0.7, Absolute Neuts (auto) 6.8, Absolute Lymphs (auto) 1.72, Nucleated RBC % 0, Sodium 136, Potassium 3.4, Chloride 95 L, Carbon Dioxide 30.9, Anion Gap 10, BUN 17, Creatinine 0.72, Estim Creat Clear Calc 67.93, Est GFR (MDRD) Non-Af 88, BUN/Creatinine Ratio 23.7 H, Glucose 158 H, Calcium 8.6 01/03/25 11:28: POC Glucose 221 H Microbiology: Microbiology 12/27/24 11:23 Urine, Clean Catch Urine Culture - Final Aerococcus urinae Mixed Gram Pos & Gram Neg Org 12/27/24 11:23 Stool Stool Occult Blood (PIA) - Final Occult Blood Positive D/C Instructions DC O2, CPAP, BIPAP Needs Home O2 Discharge instructions: No Meaningful Use Info Meaningful Use Meaningful Use Diagnoses (Choose all that apply): None applicable Discharge Plan Admission Admit Date/Time: 12/27/24 14:42 Attending Provider: Clifton Wells Primary Care Provider: Miryam Riojas Consulting Providers: Clifton Wells; Friend,Raul; Sandie Rodriguez; Jacquelin Odell; Adelina Silvestre; Shelia Campos; Keshav Elizondo Discharge Orders/Prescriptions Prescriptions: New acetaminophen 325 mg Tablet 650 mg PO Q6H PRN PRN (Reason: Pain 1-10 Or Fever) Qty: 0 0RF ipratropium-albuterol 0.5 mg-3 mg(2.5 mg base)/3 mL Solution For Nebulization 3 ml inhalation Q4HWA.RT PRNQty: 0 0RF sennosides-docusate sodium [Stimulant Laxative Plus] 8.6-50 mg Tablet 2 tab PO BID Qty: 0 0RF pantoprazole 40 mg Tablet,Delayed Release (Dr/Ec) 40 mg PO BID Qty: 0 0RF L.acidoph,saliva-B.bif-S.therm 175 mg Capsule 1 cap PO BID Qty: 0 0RF furosemide 40 mg Tablet 40 mg PO BIDLX Qty: 0 0RF insulin glargine [Lantus Solostar U-100 Insulin] 100 unit/mL (3 mL) insulin pen 15 unit subcut DAILY 30 Days Qty: 4.5 3RF Rx Instructions: Hold if glucose less than 130 mg/dl ondansetron HCl (PF) 4 mg/2 mL Solution 4 mg PO Q6H PRN (Reason: Nausea/Vomiting) Qty: 0 0RF Continued multivitamin Tablet 1 tab PO DAILY diazepam 5 mg tablet 5 mg PO QHS PRN (Reason: anxiety) cholecalciferol (vitamin D3) 125 mcg (5,000 unit) capsule 125 mcg PO DAILY levothyroxine 88 mcg tablet 88 mcg PO DAILY amlodipine 5 mg tablet 5 mg PO DAILY Azo Cranberry 250 mg tablet,chewable 250 mg PO DAILY gabapentin 100 MG capsule 300 mg PO QHS aspirin 81 MG tablet 81 mg PO DAILY@0800 lactulose 10 gram/15 mL solution 30 ml PO QHS Patient Comments: TAKE (30 mL) by mouth at bedtime for 90 days. Changed spironolactone 25 mg tablet 25 mg PO 1700 30 Days Qty: 30 0RF Referrals / Follow Up: Miryam Riojas MD [Primary Care Provider, Internal Medicine] Raul Casper DO [Med Staff - Active Staff, Gastroenterology] Adelina Silvestre PA [Med Staff - Adv Practice Prof, Gastroenterology] - Within 1 Month Disposition Disposition (needs filled in before D/C Order can be placed): [facility] Facility Charges/Coding Visit Charges Inpatient E&M: 23199 Disch Hosp >30min
--- NOTE | 2025-01-03 12:19 | PHA.DC.MR.R ---
Pharmacy [place] Med Reconciliation Pharmacy Service has performed discharge medication reconciliation for this patient. The patient's discharge medication list was reviewed for discrepancies and discrepancies were resolved. Medications at Discharge Home Medications gabapentin 100 mg capsule 300 mg PO QHS PAIN 01/11/14 diazepam 5 mg tablet 5 mg PO QHS PRN anxiety 01/13/19 aspirin 81 mg tablet,delayed release 81 mg PO DAILY@0800 HEART 02/09/19 multivitamin 1 tab PO DAILY SUPPLEMENT 04/08/19 cholecalciferol (vitamin D3) 125 mcg (5,000 unit) capsule 125 mcg PO DAILY SUPPLEMENT 10/11/19 levothyroxine 88 mcg tablet 88 mcg PO DAILY THYROID 07/26/22 cranberry fruit concentrate 250 mg chewable tablet (Azo Cranberry) 250 mg PO DAILY URINARY HEALTH 01/31/23 amlodipine 5 mg tablet 5 mg PO DAILY HTN 10/15/24 lactulose 10 gram/15 mL oral solution 30 ml PO QHS 12/27/24 L.acidophil,salivari-Bifido bifidum-Strep thermoph 175 mg capsule 1 cap PO BID #0 caps 01/03/25 acetaminophen 325 mg tablet 650 mg (2 x 325 mg) PO Q6H PRN PRN Pain 1-10 Or Fever #0 tabs 01/03/25 furosemide 40 mg tablet 40 mg PO BIDLX #0 tabs 01/03/25 insulin glargine 100 unit/mL (3 mL) subcutaneous pen (Lantus Solostar U-100 Insulin) 15 unit (0.15 mL) subcut DAILY 1 month #4.5 mL 01/03/25 ipratropium 0.5 mg-albuterol 3 mg (2.5 mg base)/3 mL nebulization soln 3 ml inhalation Q4HWA.RT PRN #0 mL 01/03/25 ondansetron HCl (PF) 4 mg/2 mL injection solution 4 mg (2 mL) PO Q6H PRN Nausea/Vomiting #0 mL 01/03/25 pantoprazole 40 mg tablet,delayed release 40 mg PO BID #0 tabs 01/03/25 sennosides 8.6 mg-docusate sodium 50 mg tablet (Stimulant Laxative Plus) 2 tab PO BID #0 tabs 01/03/25 spironolactone 25 mg tablet 25 mg PO 1700 HTN 30 days #30 tabs 01/03/25
--- NOTE | 2025-01-03 12:56 | CASEMGMT ---
Social Work SW spoke with the patient regarding DC. SW informed her that [facility]CU does not have availability but she was accepted at [facility]. SW informed her she will DC there today. [facility] was the patients second choice. GROVER Mccarty
--- NOTE | 2025-01-03 14:54 | CASEMGMT ---
Discharge Planning Discharge orders, signed med list, and transport time sent via [facility] to [facility]. Physicians will transport pt by wheelchair at 7:45p. Nursing, SW, pt, and her daughter (Erlinda) updated. Eli Barton DC Planning Asst.
== END 2025-01-03 17:19 | disposition skilled nursing facility (03) | DRG 368 ==
LOC: ED 11:43 → PCU 14:49
PROVIDERS: Anesthesiology; Internal Medicine; Internal Medicine Gastroenterology; Admitting Provider Internal Medicine; Emergency Provider Surgery; PCP Internal Medicine; Visit Provider Internal Medicine
PROC: 0DJ08ZZ Inspection of Upper Intestinal Tract, Via Natural or Artificial Opening Endoscopic (ICD-10-PCS; CPT 43235; principal; 2024-12-28 18:25)
DX: K21.01 Gastro-esophageal reflux disease with esophagitis, with bleeding (principal); K22.6 Gastro-esophageal laceration-hemorrhage syndrome; I50.31 Acute diastolic (congestive) heart failure; E87.20 Acidosis, unspecified; D62 Acute posthemorrhagic anemia; J98.11 Atelectasis; N30.00 Acute cystitis without hematuria; I11.0 Hypertensive heart disease with heart failure; E11.40 Type 2 diabetes mellitus with diabetic neuropathy, unspecified; D50.9 Iron deficiency anemia, unspecified; E03.9 Hypothyroidism, unspecified; J45.20 Mild intermittent asthma, uncomplicated; K76.0 Fatty (change of) liver, not elsewhere classified; E66.812 Obesity, class 2; E11.51 Type 2 diabetes mellitus with diabetic peripheral angiopathy without gangrene; K58.9 Irritable bowel syndrome, unspecified; K64.4 Residual hemorrhoidal skin tags; M79.7 Fibromyalgia; I25.10 Atherosclerotic heart disease of native coronary artery without angina pectoris; F41.9 Anxiety disorder, unspecified; M19.90 Unspecified osteoarthritis, unspecified site; K44.9 Diaphragmatic hernia without obstruction or gangrene; E87.6 Hypokalemia; B96.89 Other specified bacterial agents as the cause of diseases classified elsewhere; T39.015A Adverse effect of aspirin, initial encounter; R09.02 Hypoxemia; R55 Syncope and collapse; R53.1 Weakness; Z87.19 Personal history of other diseases of the digestive system; Z86.718 Personal history of other venous thrombosis and embolism; Z86.73 Personal history of transient ischemic attack (TIA), and cerebral infarction without residual deficits; Z79.82 Long term (current) use of aspirin; Z87.440 Personal history of urinary (tract) infections; Z79.890 Hormone replacement therapy; Z90.49 Acquired absence of other specified parts of digestive tract; Z79.899 Other long term (current) drug therapy; Z68.39 Body mass index [BMI] 39.0-39.9, adult
CPT/HCPCS: 36415; 71045; 74177; 80048; 80053; 81001; 82274; 82962; 83036; 83605; 83690; 83735; 83880; 84100; 84443; 85014; 85018; 85025; 85610; 85730; 86850; 86900; 86901; 87077; 87086; 87088; 88305; 93005; 93306; 94640; 94668; 97162; 97166; 97167; 99285; C1889; P9016; Q9967; A4216; J1938; J2405

== ENCOUNTER 2025-01-13 23:14 | Emergency (ER) | payer MEDICARE, BC, SELFPAY ==
[2025-01-13 23:17] VITALS: BP 135/76; PULSE 93; RESP 18; TEMP 37; O2SAT 98; BMI 33.9
[2025-01-14 00:25] LABS: Mucous, Urine 0 SEEN /hpf (<or=2+); Squamous Epithelial Cells - UA 0 SEEN /hpf (5-10)
[2025-01-14 00:31] LABS: Hematocrit 28.7 % (37-47); Hemoglobin 9.3 g/dL (12.0-15.0); Immature Granulocytes Count 0.020 X10^3/uL (0.0-0.0); Mean Corp Hgb Conc 32.4 g/dL (32-36); Mean Corpuscular Volume 87.5 fL (81-99); Mean Platelet Vol. 9.1 fl (6.2-12.0); NRBC Flagged by Analyzer 0 % (0-5); Platelet Count 510 K/mm3 (150-450); RBC Distribution Width CV 14.8 % (11.6-14.6); RBC Distribution Width SD 47.4 fl (35.1-43.9); Red Blood Count 3.28 M/mm3 (4.2-5.4); White Blood Count 9.4 K/mm3 (4.4-11.0)
[2025-01-14 00:36] LABS: AST(SGOT) 27 U/L (<=31); Alanine Aminotransfer ALT/SGPT 22 U/L (<=34); Albumin, Serum 3.8 g/dL (3.4-4.8); Alkaline Phosphatase 73 U/L (35-104); Anion Gap 13 (5-15); BUN 14 mg/dL (4-19); BUN/Creat Ratio 14.6 RATIO (10-20); Bilirubin, Direct 0.09 mg/dL (0.00-0.30); Calcium,Total 9.2 mg/dL (7.6-11.0); Carbon Dioxide 25.5 mmol/L (21.0-32.0); Chloride 99 mmol/L (98-108); Estimated Creatinine Clearance 54.04 ml/min (50-250); Globulin 3.4 g/dL (2.2-4.2); Glucose 310 mg/dL (70-99); Potassium 3.5 mmol/L (3.3-5.1)
[2025-01-14 00:36] LABS: Color, Urine Yellow (Yellow); Glucose, Dipstick 1000 mg/dl (Normal); Ketone-Dipstick Negative (Negative); Leukocyte Esterase-Dipstick Negative /ul (Negative); Nitrite-Dipstick Negative (Negative); Occult Blood-Urine Negative /ul (Negative); Protein-Dipstick 15 mg/dl (Negative); Specific Gravity, Urine 1.020 (1.002-1.030); Urine Bilirubin Dipstick Negative (Negative)
--- NOTE | 2025-01-14 01:05 | EX.ED.DYSGE1 ---
HPI History of Present Illness Chief Complaint: Hyperglycemia Informant: patient, family, EMS and SNF Narrative Narrative: 74-year-old female presenting to the emergency room stating she does not feel well. Patient was admitted earlier this month and was found to have an upper GI bleed and required transfusion. She states her hemoglobin level was checked 2 days ago was 8.7. Tonight she states that she felt globally unwell and noted that that felt similar to when she needed to be transfused. She was brought to the emergency room for evaluation. Patient has noted a slight abdominal discomfort which she does not want anything for. It was also noted that her blood sugar was in the 300s. She states that she was on insulin here in the hospital and is unsure of what she has been taking at the alf. She states her blood sugars have been in the 150-200 range in the mornings and believes she gets insulin in the mornings. Review of the chart shows that she has been taking Lantus 15 units in the morning. Patient denies any urinary symptoms. She was treated for UTI while in the hospital. She notes she has been having formed bowel movements sometimes not formed. She does note that they have been darker than anticipated. She is currently on pantoprazole twice daily. [facility] Medical History Loss of hearing Wears glasses Wears partial dentures Post-menopausal Anxiety Thyroid disease Ambulates with cane Urinary incontinence Difficulty swallowing Gastric reflux Non-smoker History of echocardiogram History of stress test Seasonal allergies History of edema Cardiology follow-up encounter History of cataract Ganglion cyst Atherosclerotic heart disease of [place] coronary artery without angina pectoris Cholelithiasis with chronic cholecystitis Cholecystitis Pancreatitis, gallstone Gallstones Pancreatitis Dysmetabolic syndrome X DVT (deep venous thrombosis) Barretts esophagus Hypothyroidism Fibromyalgia History of DVT (deep vein thrombosis) Essential hypertension Segmental and somatic dysfunction of pelvic region Segmental and somatic dysfunction of lumbar region Segmental and somatic dysfunction of thoracic region DDD (degenerative disc disease), lumbar History of atrial dilatation PAD (peripheral artery disease) TIA (transient ischemic attack) Osteoarthritis GERD (gastroesophageal reflux disease) IBS (irritable bowel syndrome) Cataracts, bilateral Arthritis Anemia Environmental allergies Home Medications ?Medication ?Instructions ?Recorded ?Last Taken ?Type gabapentin 100 mg capsule 300 mg PO QHS PAIN 01/11/14 12/26/24 History aspirin 81 mg tablet,delayed 81 mg PO DAILY@0800 HEART 02/09/19 12/26/24 History release multivitamin 1 tab PO DAILY SUPPLEMENT 04/08/19 12/26/24 History cholecalciferol (vitamin D3) 125 125 mcg PO DAILY SUPPLEMENT 10/11/19 05/05/22 History mcg (5,000 unit) capsule levothyroxine 88 mcg tablet 88 mcg PO DAILY THYROID 07/26/22 12/27/24 History cranberry fruit concentrate 250 mg 250 mg PO DAILY URINARY HEALTH 01/31/23 12/27/24 History chewable tablet (Azo Cranberry) amlodipine 5 mg tablet 5 mg PO DAILY HTN 10/15/24 12/26/24 History lactulose 10 gram/15 mL oral 30 ml PO QHS 12/27/24 12/26/24 History solution L.acidophil,salivari-Bifido 1 cap PO BID #0 caps 01/03/25 Unknown Rx bifidum-Strep thermoph 175 mg capsule acetaminophen 325 mg tablet 650 mg (2 x 325 mg) PO Q6H PRN PRN 01/03/25 Unknown Rx Pain 1-10 Or Fever #0 tabs furosemide 40 mg tablet 40 mg PO BIDLX #0 tabs 01/03/25 Unknown Rx insulin glargine 100 unit/mL (3 15 unit (0.15 mL) subcut DAILY 1 01/03/25 Unknown Rx mL) subcutaneous pen (Lantus month #4.5 mL Solostar U-100 Insulin) ipratropium 0.5 mg-albuterol 3 mg 3 ml inhalation Q4HWA.RT PRN #0 mL 01/03/25 Unknown Rx (2.5 mg base)/3 mL nebulization soln ondansetron HCl (PF) 4 mg/2 mL 4 mg (2 mL) PO Q6H PRN 01/03/25 Unknown Rx injection solution Nausea/Vomiting #0 mL pantoprazole 40 mg tablet,delayed 40 mg PO BID #0 tabs 01/03/25 Unknown Rx release sennosides 8.6 mg-docusate sodium 2 tab PO BID #0 tabs 01/03/25 Unknown Rx 50 mg tablet (Stimulant Laxative Plus) spironolactone 25 mg tablet 25 mg PO 1700 HTN 30 days #30 tabs 01/03/25 12/26/24 Rx diazepam 5 mg tablet 5 mg PO QHS PRN anxiety 20 days 01/05/25 Unknown Rx #20 tabs nystatin 100,000 unit/mL oral 5 ml PO TID 7 days #105 mL 01/12/25 Unknown Rx suspension Allergy/AdvReac Type Severity Reaction Status Date / Time latex Allergy Unknown PT UNSURE Verified 01/13/25 23:17 OF REACTION adhesive Allergy Unknown Verified 01/13/25 23:17 benzocaine (From Cetacaine) Allergy Unknown Verified 01/13/25 23:17 butamben (From Cetacaine) Allergy Vomiting Verified 01/13/25 23:17 cortisone (Cortisone) Allergy Unknown Verified 01/13/25 23:17 dipyridamole (From Aggrenox) Allergy Unknown Verified 01/13/25 23:17 lansoprazole (From Prevacid) Allergy Unknown Verified 01/13/25 23:17 meclizine Allergy Unknown Verified 01/13/25 23:17 methylprednisolone acetate Allergy Angioedema Verified 01/13/25 23:17 (From Depo-Medrol) metoprolol Allergy Unknown Verified 01/13/25 23:17 omeprazole (From Prilosec) Allergy Unknown Verified 01/13/25 23:17 omeprazole magnesium (From Allergy Unknown Verified 01/13/25 23:17 Prilosec) oxybutynin chloride (From Allergy Unknown Verified 01/13/25 23:17 Ditropan) povidone-iodine (From Allergy Unknown Verified 01/13/25 23:17 Betadine) sulfamethoxazole (From Allergy Unknown Verified 01/13/25 23:17 Bactrim) tegaserod (From Zelnorm) Allergy Hives Verified 01/13/25 23:17 tegaserod hydrogen maleate Allergy Unknown Verified 01/13/25 23:17 (From Zelnorm) tetracaine (From Cetacaine) Allergy Unknown Verified 01/13/25 23:17 tolterodine tartrate (From Allergy Unknown Verified 01/13/25 23:17 Detrol) trimethoprim (From Bactrim) Allergy Unknown Verified 12/27/24 09:55 lisinopril AdvReac Intermediate Angioedema Verified 01/13/25 23:17 adhesive tape AdvReac Rash Verified 01/13/25 23:17 codeine AdvReac Unknown Verified 01/13/25 23:17 mirabegron (From Myrbetriq) AdvReac Other Verified 01/13/25 23:17 tizanidine AdvReac Other Verified 01/13/25 23:17 vaccine adjuvant system, AdvReac Rash Verified 01/13/25 23:17 [id number] liposomal (From Shingrix (PF)) varicella-zoster virus AdvReac Rash Verified 01/13/25 23:17 glycoprotein E, recombinant (From Shingrix (PF)) Family History Mother Cancer Celiac disease Presence of permanent cardiac pacemaker Father Cancer Sister Hypertension Other Colon cancer Myocardial infarction Surgical History History of back surgery History of cholecystectomy Hx of dilation and curettage Hx of cardiac cath History of Robbie fundoplication S/P gastroplasty History of laparotomy Hx of tubal ligation hx of filter removal Hx of superior vena cava filter placement Hx of local excision of skin lesion History of esophagogastroduodenoscopy (EGD) Hx of colonoscopy H/O hernia repair History of tonsillectomy Social History housing: house Smoking Status: Never smoker alcohol intake: never substance use type: does not use caffeine: Yes Type: coffee Number of servings: 2 what type of physical activity do you participate in: walking frequency: 3-4 times per week ROS ROS ED Constitutional Constitutional ED: Reports other Details: Generalized weakness ; Denies chills, fever(s) or weight loss Eyes Eyes: Denies change in vision or diplopia ENT ENT ED: Denies ear pain, rhinorrhea or sore throat Cardiovascular Cardiovascular: Denies chest pain, orthopnea, palpitations or racing heartbeat Respiratory/Chest Respiratory/Chest: Denies cough, dyspnea or orthopnea Gastrointestinal Gastrointestinal: Reports abdominal pain; Denies diarrhea, nausea or vomiting Genitourinary Genitourinary ED: Denies dysuria, hematuria or urinary frequency Musculoskeletal Musculoskeletal: Reports myalgias; Denies arthralgias Integumentary Denies abscess or rash Neurologic Neurologic: Denies headache(s) or weakness Psychiatric Psychiatric: Denies anxiety, depression, suicidal ideation or suicidal thoughts Endocrine Endocrinology: Denies polydipsia, polyphagia or polyuria Allergic/Immunologic Allergic/Immunologic ED: Denies mouth swelling, tongue swelling or urticaria EXAM Physical Exam Const Vital Signs: 01/13/25 23:17 01/13/25 23:34 01/14/25 01:14 Temperature 98.6 F Temperature Source Oral Pulse Rate 93 86 Respiratory Rate 18 Respiratory Effort Normal Non-Labored Respiratory Pattern Normal Blood Pressure 135/76 H 116/68 Blood Pressure Mean 95 84 Pulse Ox 98 97 Oxygen Delivery Method Room Air Room Air 01/14/25 01:47 Temperature 98 F Temperature Source Pulse Rate 75 Respiratory Rate 18 Respiratory Effort Respiratory Pattern Blood Pressure 146/87 H Blood Pressure Mean 106 Pulse Ox 98 Oxygen Delivery Method Positive well nourished, well developed and obese General Appearance ED: well developed and NAD Nutritional Appearance: obese HEENT Reports normocephalic, head/scalp atraumatic and moist mucous membranes Eyes PERRL and EOMs intact bilaterally General Eye ED: Negative for pale conjunctiva or scleral icterus Neck no lymphadenopathy, supple and no JVD Resp normal respiratory effort and clear to auscultation bilaterally Cardio regular rate, regular rhythm and no murmurs GI normal to inspection, nondistended, normoactive bowel sounds and non-tender Palpation: soft Back/Spine no CVA tenderness and normal ROM Extremity normal to inspection General Extremety ED: Negative for edema General Extremity: Negative for edema Neuro oriented x3 and CN's II-XII intact bilaterally Sensorium / Orientation: alert Motor Exam: strength 5/5 throughout Psych mental status grossly normal Mood & Affect: Negative for depressed or tearful Skin no rashes or lesions noted and no wounds MDM MDM MDM Narrative Medical decision making narrative: Differential diagnosis includes anemia upper GI bleed UTI hyperglycemia sepsis acute kidney injury electrolyte abnormalities dehydration hyperglycemia Patient's white count is 9.4 hemoglobin 9.3 platelet count is 510. Creatinine 0.99 normal sodium and potassium. CO2 25.5. Normal LFTs. Glucose is noted to be 310. Urinalysis shows a specific gravity 1.02. No overt infection. Patient received a dose of insulin for her hyperglycemia. At this point I do not see a strong indication for admission. She is to talk with her doctor about her blood sugar control as she will most likely need alterations in her insulin. She does note that she was not on any diabetes medicines prior to her hospitalization. History & Record Review Discussion w/independent historian: EMS personnel, Patient and Family Additional record(s) reviewed:: Prior inpatient record, Prior ED visit and Prior labs Lab Data Attestation: I reviewed the patient's lab results. Labs: Laboratory Results - last 24 hr 01/14/25 01/14/25 00:00 00:20 WBC 9.4 RBC 3.28 L Hgb 9.3 L Hct 28.7 L MCV 87.5 MCH 28.4 MCHC 32.4 RDW Std Deviation 47.4 H RDW Coeff of Ronnie 14.8 H Plt Count 510 H MPV 9.1 Immature Gran % (Auto) 0.200 Neut % (Auto) 57.0 Lymph % (Auto) 27.3 Bryan % (Auto) 9.8 Eos % (Auto) 4.8 Baso % (Auto) 0.9 Absolute Neuts (auto) 5.3 Absolute Lymphs (auto) 2.56 Nucleated RBC % 0 Sodium 138 Potassium 3.5 Chloride 99 Carbon Dioxide 25.5 Anion Gap 13 BUN 14 Creatinine 0.99 Estim Creat Clear Calc 54.04 Est GFR (MDRD) Non-Af 60 BUN/Creatinine Ratio 14.6 Glucose 310 H Calcium 9.2 Total Bilirubin 0.26 Direct Bilirubin 0.09 AST 27 ALT 22 Alkaline Phosphatase 73 Total Protein 7.2 Albumin 3.8 Globulin 3.4 Urine Color Yellow Urine Clarity Clear Urine pH 6.0 Ur Specific [place] 1.020 Urine Protein 15 H Urine Glucose (UA) 1000 H Urine Ketones Negative Urine Occult Blood Negative Urine Nitrite Negative Urine Bilirubin Negative Urine Urobilinogen Normal Ur Leukocyte Esterase Negative Urine RBC 0-5 SEEN Urine WBC 0-5 SEEN Ur Squamous Epith Cells 0 SEEN Ur Renal Epithelial Cell 0-5 SEEN Urine Bacteria RARE Hyaline Casts 5-10 SEEN Urine Mucus 0 SEEN Discharge Plan Triage Chief Complaint: Hyperglycemia ED Provider: Stew Garza Dx/Rx/DC Orders Clinical Impression: Anemia, Barretts esophagus, Hyperglycemia due to diabetes mellitus Instructions: ED Diabetic Hyperglycemia Prescriptions: No Action multivitamin Tablet 1 tab PO DAILY cholecalciferol (vitamin D3) 125 mcg (5,000 unit) capsule 125 mcg PO DAILY levothyroxine 88 mcg tablet 88 mcg PO DAILY amlodipine 5 mg tablet 5 mg PO DAILY Azo Cranberry 250 mg tablet,chewable 250 mg PO DAILY gabapentin 100 MG capsule 300 mg PO QHS aspirin 81 MG tablet 81 mg PO DAILY@0800 lactulose 10 gram/15 mL solution 30 ml PO QHS Patient Comments: TAKE (30 mL) by mouth at bedtime for 90 days. acetaminophen 325 mg Tablet 650 mg PO Q6H PRN PRN (Reason: Pain 1-10 Or Fever) Qty: 0 0RF ipratropium-albuterol 0.5 mg-3 mg(2.5 mg base)/3 mL Solution For Nebulization 3 ml inhalation Q4HWA.RT PRNQty: 0 0RF sennosides-docusate sodium [Stimulant Laxative Plus] 8.6-50 mg Tablet 2 tab PO BID Qty: 0 0RF pantoprazole 40 mg Tablet,Delayed Release (Dr/Ec) 40 mg PO BID Qty: 0 0RF L.acidoph,saliva-B.bif-S.therm 175 mg Capsule 1 cap PO BID Qty: 0 0RF furosemide 40 mg Tablet 40 mg PO BIDLX Qty: 0 0RF insulin glargine [Lantus Solostar U-100 Insulin] 100 unit/mL (3 mL) insulin pen 15 unit subcut DAILY 30 Days Qty: 4.5 3RF Rx Instructions: Hold if glucose less than 130 mg/dl ondansetron HCl (PF) 4 mg/2 mL Solution 4 mg PO Q6H PRN (Reason: Nausea/Vomiting) Qty: 0 0RF spironolactone 25 mg tablet 25 mg PO 1700 30 Days Qty: 30 0RF diazepam 5 mg tablet 5 mg PO QHS PRN (Reason: anxiety) 20 Days Qty: 20 0RF nystatin 100,000 unit/mL suspension 5 ml PO TID 7 Days Qty: 105 0RF Primary Care Provider: Seymour Tripp Referrals: Seymour Tripp MD [Primary Care Provider, Internal Medicine] - 3-5 Days Activity Restrictions/Additional Instructions: Please discuss your blood sugar control with your doctor. You most likely need to have your insulin adjusted. Your hemoglobin level tonight was 9.3 up from 8.72 days ago. Your blood sugar here in the emergency department was 310 prior to the administration of insulin. Your urine specimen did not show obvious infection. Print Language: Turkmen Disposition Disposition: Home, Self Care
[2025-01-14 01:09] LABS: Red Blood Cells-Urine 0-5 SEEN /hpf (0-5)
[2025-01-14 01:14] VITALS: BP 116/68; PULSE 86; O2SAT 97
[2025-01-14] MEDS: Insulin Lispro 5 UNIT in Syringe 0 ML 3 UNIT IV (01:45)
[2025-01-14 01:47] VITALS: BP 146/87; PULSE 75; RESP 18; TEMP 36.6; O2SAT 98
== END 2025-01-14 03:18 ==
PROVIDERS: Emergency Provider Emergency Medicine; PCP Internal Medicine; Visit Provider Emergency Medicine
DX: D64.9 Anemia, unspecified (principal); E11.65 Type 2 diabetes mellitus with hyperglycemia; Z79.4 Long term (current) use of insulin; Z79.899 Other long term (current) drug therapy; K22.70 Barrett's esophagus without dysplasia; I10 Essential (primary) hypertension; I25.10 Atherosclerotic heart disease of native coronary artery without angina pectoris; K21.9 Gastro-esophageal reflux disease without esophagitis; E66.9 Obesity, unspecified
CPT/HCPCS: 80048; 80076; 81001; 85025; 99285; P9612; A4216

== ENCOUNTER → 2025-02-17 | Outpatient (CLI) | payer MEDICARE, BC, SELFPAY ==
--- OUTSIDE RECORDS SUMMARY | 2025-02-17 18:33 | XMS RPT_ITS | CCD ---
Author Organization [facility] Care Team Providers Care Hand Candle Dipper Name Role Phone No supervisor extrusion, Md Unavailable Unavailab le No supervisor extrusion, Md Primary Care Provider Sunni vailable Zeenat Sweeney CGC Unavailable Unavailable Quoc Diaz MD Unavailable Paulo Scott MD Primary Care Provider Dr. Paulo Scott Primary Care Provider Dr. Paulo Scott Referring Provider Debbie DESIGNER ARCHITECT, DESIGNER ARCHITECT-C Suzie Attending Provider Paulo Scott MD Primary Care Provider Paulo Scott MD Primary Care Provider Dr. Paulo Scott Primary Care Provider Dr. Paulo Scott Referring Provider Dr. Slim Park Attending Provider Dr. Ellie Mullins Emergency Provider Dr. Yuridia Bernabe Admit Provider Dr. Yuridia Bernabe Attending Provider Dr. Yuridia Bernabe Other Provider Dr. Shelia Campos Attending Provider Dr. Sehlia Campos Other Provider Dr. Paulo Scott Primary Care Provider Dr. Paulo Scott Referring Provider Tyra CASTANEDA, LEONEL Joiner Attending Provider Pennie, Dr. Carter Attending Provider [phone] Debbie DESIGNER ARCHITECT, VERA Larsen Attending Provider Dr. Paulo Scott Primary Care Provider Dr. Paulo Scott Referring Provider Sameer HUDDLESTON, VERA Hughes Attending Provider Dr. Raul Casper Attending Provider [phone] Dr. lSim Park Attending Provider Pennie, Dr. Carter Referring Provider [phone] Dr. aRul Casper Other Provider [phone] Paulo Scott Primary Care Provider Dr. Paulo Scott Referring Provider Dr. Raul Casper Attending Provider [phone] Dr. Slim Park Attending Provider Dr. Raul Casper Referring Provider [phone] Dr. Raul Casper Other Provider [phone] Paulo Scott MD Primary Care Provider Rodriguez MANAGER CAR.COLLECTIONS REP, Juan Unavailable Sumeet MANAGER CAR.POCKET CREASER, Norman Unavailable Sumeet MANAGER CAR.POCKET CREASER, Norman Unavailable Dr. Paulo Scott MD Primary Care Provider Dr. Paulo Scott MD Referring Provider Dr. Raul Casper DO Attending Provider Dr. Callum Trimble DO Attending Provider Dr. Julian Paul MD Attending Provider Dr. Raul Casper DO Referring Provider Jackson VARGAS, Dr. Rojas Attending Provider Jackson VARGAS, Dr. Rojas Referring Provider [phone] Shine VARGAS, Dr. Paulo Tony Primary Care Provider Shine VARGAS, Dr. Paulo Tony Referring Provider Atilio RANDLE, Dr. Nolen Attending Provider Beverly VARGAS, Dr. Jordan Attending Provider [phone] Pennie RANDLE, Dr. Carter Attending Provider Vanessa VARGAS, Dr. Sotelo Referring Provider Vanessa VARGAS, Dr. Sotelo Emergency Provider Sumeet MANAGER CAR.POCKET CREASER, Norman Unavailable Rodriguez MANAGER CAR.COLLECTIONS REP, Juan Unavailable Shine VARGAS, Dr. Paulo Tony Primary Care Provider [phone] Vanessa VARGAS, Dr. Sotelo Attending Provider Gina Ahumada Attending Provider Shine VARGAS, Dr. Paulo Tony Primary Care Physician Vanessa VARGAS, Dr. Sotelo Attending Physician Vanessa VARAGS, Dr. Sotelo Emergency Department Phys ician Shine VARGAS, Dr. Paulo Tony Referring Provider Gina Ahumada Attending Physician [phone] Frida VARGAS, Dr. Voss Attending Physician Reilly Galicia MD, Dr. Voss Emergency Department Physici an Unavailable Adelina Rm Attending Physician [phone] Shine VARGAS, Dr. Paulo Tony Primary Care Physician Shine VARGAS, Dr. Paulo Tony Referring Provider Gina Ahumada Attending Physician [phone] Frida VARGAS, Dr. Voss Attending Physician Reilly Galicia MD, Dr. Voss Emergency Department Physici an Unavailable Adelina Rm Attending Physician [phone] Karen-Nancy RANDLE, Dr. Danielle Emergency Departmen t Physician Andres RANDLE, Dr. Bass Admitting Physician Andres RANDLE, Dr. Bass Nurse Practitioner Russell VARGAS, Dr. Lazo Attending Physician Russell VARGAS, Dr. Lazo Nurse Practitioner Pennie RANDLE, Dr. Carter Nurse Practitioner Michael DESIGNER ARCHITECT-C, Sandie Nurse Practitioner [phone] Jose R DESIGNER ARCHITECT-C, Jacquelin Nurse Practitioner Adelina Rm Nurse Practitioner [phone] Mikhail VARGAS, Dr. Parr Nurse Practitioner Reilly Casper DO, Dr. Carter Attending Physician [phone] Beverly VARGAS, Dr. Jordan Attending Physician [phone] Beverly VARGAS, Dr. Jordan Referring Provider Mikhail VARGAS, Dr. Parr Attending Physician Unavail edwar Tripp MD, Seymour Attending Physician Unavail edwar Scott MD, Dr. Paulo Tony Primary Care Physician Shine VARGAS, Dr. Paulo Tony Referring Provider Gina Ahumada Attending Physician Frida VARGAS, Dr. Voss Attending Physician Unavailagus Galicia MD, Dr. Voss Emergency Department Physici an Unavailable Adelina Rm Attending Physician [phone] Danielle Emergency Departmen t Physician Andres RANDLE, Dr. Bass Admitting Physician Andres RANDLE, Dr. aBss Nurse Practitioner Russell VARGAS, Dr. Lazo Attending Physician Russell VARGAS, Dr. Lazo Nurse Practitioner Pennie RANDLE, Dr. Carter Nurse Practitioner Michael HUDDLESTON-C, Sandie Nurse Practitioner Jose R DESIGNER ARCHITECT-CJacquelin Nurse Practitioner Adelina Rm Nurse Practitioner [phone] Mikhail VARGAS, Dr. Parr Nurse Practitioner Unavaila brie Casper DO, Dr. Carter Attending Physician [phone] Mikhail VARGAS, Dr. Parr Referring Provider Unavaila brie Paul MD, Dr. Jordan Attending Physician [phone] Beverly VARGAS, Dr. Jordan Referring Provider [phone] Mikhail VARGAS, Dr. Parr Attending Physician Unavail edwar Tripp MD, Seymour Attending Physician Unavail edwar Tripp MD, Seymour Referring Provider Unavaila brie Johns DESIGNER ARCHITECT-CNathalie Attending Physician Dr. Stew Garza DO Emergency Department Physi dominik Josee VARGAS, Dr. Ahuja Primary Care Physician NORMAN GARCIA Referring Unavailable TALAMPAS, PAULO D Primary Care Unavailable TALAMPAS, PAULO D Attending Unavailable TALAMPAS, PAULO D Primary Care Unavailable TALAMPAS, PAULO D Referring Unavailable TALAMPAS, PAULO D Primary Care Unavailable RODRIGUEZ, JUAN Attending Unavailable TALAMPAS, PAULO D Primary Care Unavailable NORMAN GARCIA Attending Unavailable RODRIGUEZ, JUAN Referring Unavailable TALAMPAS, PAULO D Primary Care Unavailable Talampas, Paulo D Primary Care Unavailable Shanika Galicia Attending Unavailable Talampas, Paulo D Primary Care Unavailable Raul Casper Referring Unavailable Raul Casper Attending Unavailable Talampas, Paulo D Primary Care Unavailable Talampas, Paulo D Referring Unavailable Callum Trimble Attending Unavailable Talampas, Paulo D Primary Care Unavailable Crystal Paz Referring Unavailable RamyaiCrystal Attending Unavailable Talampas, Paulo D Primary Care Unavailable Raul Casper Attending Unavailable Keshav Elizondo Referring Unavailable Talampas, Paulo D Primary Care Unavailable Oleghe Seymour HALE Attending Unavailabl e Talampas, Paulo D Primary Care Unavailable Oleghe OLS Efewongbe Referring Unavailabl e Oleghe OLS, Efewongcamila Attending Unavailabl e Talampas, Paulo D Primary Care Unavailable Russell, Clifton Consulting Unavailable Russell, Clifton Attending Unavailable Shelia Campos Admitting Unavailable Friend, Raul Consulting Unavailable Sandie Rodriguez Consulting Unavailable Jacquelin Odell Consulting Unavailable Adelina Silvestre Consulting Unavailable Shelia Campos Consulting Unavailable Keshav Elizondo Consulting Unavailable Talampas, Paulo D Referring Unavailable Talampas, Paulo D Primary Care Unavailable Friend, Raul Attending Unavailable Talampas, Paulo D Referring Unavailable Talampas, Paulo D Primary Care Unavailable Callum Trimble Attending Unavailable Talampas, Paulo D Referring Unavailable Talampas, Paulo D Primary Care Unavailable Atilio, Callum Attending Unavailable Talampas, Paulo D Primary Care Unavailable Talampas, Paulo D Referring Unavailable JeetruCallum molina Attending Unavailable Talampas, Paulo D Primary Care Unavailable Talampas, Paulo D Referring Unavailable BorrusoCallum Attending Unavailable Talampas, Paulo D Primary Care Unavailable Julian Paul Attending Unavailable Talampas, Paulo D Primary Care Unavailable Russell, Clifton Consulting Unavailable Shelia Campos Admitting Unavailable Keshav Elizondo Attending Unavailable Friend, Raul Consulting Unavailable Sandie Rodriguez Consulting Unavailable Jacquelin Odell Consulting Unavailable Adelina Silvestre Consulting Unavailable Shelia Campos Consulting Unavailable Keshav Elizondo Consulting Unavailable Russell, Clifton Attending Unavailable Talampas, Paulo D Primary Care Unavailable Talampas, Paulo D Referring Unavailable Raul Casper Attending Unavailable Talampas, Paulo D Primary Care Unavailable Talampas, Paulo D Referring Unavailable Callum Trimble Attending Unavailable Talampas, Paulo D Primary Care Unavailable Julian Paul Attending Unavailable Talampas, Paulo D Primary Care Unavailable Talampas, Paulo D Referring Unavailable Gina Ahumada Attending Unavail able Oleghe, Efewongbe Primary Care Unavailable Stew Garza Attending Unavailable Oleghe Seymour HALE Attending Unavailabl e Oleghe, Efewongbe Primary Care Unavailable Talampas, Paulo D Primary Care Unavailable Nathalie Enamorado Attending Unavailable Talampas, Paulo D Primary Care Unavailable Julian Paul Attending Unavailable Oleghe, Efewongbe Primary Care Unavailable Oleghe ALEXIA, Efewongbe Attending Unavailabl e Talampas, Paulo D Primary Care Unavailable Talampas, Paulo D Referring Unavailable Adelina Silvestre Attending Unavailable Pennie, Raul Attending Unavailable Keshav Elizondo Referring Unavailable CheoFareed ledesmaongbe Primary Care Unavailable Talampas, Paulo D Referring Unavailable Adelina Silvestre Attending Unavailable Shelia Campos Attending Unavailable Deepak Mendez Referring Unavailable Talampas, Paulo D Primary Care Unavailable Deepak Mendez Attending Unavailable Allergies Allergy Classification Reported Allergen(s) Allergy Type Date of Onset Reaction(s) Facility (20 sources) Aspirin / Dipyridamole; Translations: [ASPIRIN-DIPYRIDAMOLE ] Drug Allergy 05-27-19 12 Other: See Comments [facility] (20 sources) Benzocaine / butamben / Tetracaine; Translations: [BUTAMBEN-TETRACAINE- BENZOCAINE] Drug Allergy 09-12-19 13 Other: See Comments [facility] Work Phone: (20 sources) Codeine; Translations: [CODEINE] Drug Allergy 03-07-20 06 Intolerance [facility] (20 sources) Cortisone; Translations: [CORTISONE] Drug Allergy 09-19-19 22 Shortness of Breath [facility] Work Phone: (20 sources) lansoprazole; Translations: [LANSOPRAZOLE] Drug Allergy 03-07-20 06 GI Upset [facility] (20 sources) Latex; Translations: [LATEX] Propensity to adverse reactions 11-04-19 10 Rash [facility] Work Phone: (20 sources) Meclizine; Translations: [MECLIZINE] Drug Allergy 03-07-20 06 Swelling [facility] (20 sources) methylPREDNISolone Drug Allergy 03-07-20 06 Swelling [facility] (20 sources) Metoprolol; Translations: [METOPROLOL] Drug Allergy 04-24-19 07 GI Upset [facility] Work Phone: (20 sources) mirabegron; Translations: [MIRABEGRON] Drug Allergy 12-27-19 15 Other: See Comments [facility] Work Phone: (20 sources) Omeprazole; Translations: [OMEPRAZOLE MAGNESIUM] Drug Allergy 09-19-19 22 Diarrhea [facility] Work Phone: (20 sources) oxybutynin; Translations: [OXYBUTYNIN CHLORIDE] Drug Allergy 03-07-20 06 Intolerance [facility] (20 sources) Povidone-Iodine; Translations: [POVIDONE-IODINE] Drug Allergy 11-05-19 07 Rash [facility] Work Phone: (20 sources) Sulfamethoxazole / Trimethoprim; Translations: [SULFAMETHOXAZOLE-TRI METHOPRIM] Drug Allergy 03-20-19 [facility] Work Phone: (20 sources) tegaserod; Translations: [TEGASEROD HYDROGEN MALEATE] Drug Allergy 03-07-20 06 Hives [facility] (20 sources) tiZANidine; Translations: [TIZANIDINE] Drug Allergy 03-24-19 15 Other: See Comments [facility] (20 sources) tolterodine; Translations: [TOLTERODINE TARTRATE] Drug Allergy 03-07-20 06 Intolerance [facility] (20 sources) cigarettes [Other] Propensity to adverse reactions 02-23-20 10 Shortness of Breath [facility] (20 sources) ekg patches [Other] Propensity to adverse reactions 02-21-20 06 [facility] (20 sources) paper tape [Other] Propensity to adverse reactions 08-16-19 07 [facility] Work Phone: (20 sources) Adhesive agent; Translations: [ADHESIVE] Allergy to substance 09-19-19 Rash [facility] (6 sources) Aspirin Drug Allergy 09-19-19 Unknown [facility] (15 sources) Benzocaine Drug Allergy 09-19-19 Unknown [facility] (15 sources) butamben Drug Allergy 09-19-19 22 Unknown, Vomiting [facility] (15 sources) Dipyridamole Drug Allergy 09-19-19 Unknown [facility] (16 sources) methylPREDNISolone; Translations: [methylprednisolone acetate] Drug Allergy 09-19-19 22 Unknown, Angioedema [facility] (1 source) methylPREDNISolone Drug Allergy 09-19-19 22 Angioedema [facility] Work Phone: (15 sources) Omeprazole Drug Allergy 09-19-19 22 Unknown [facility] (15 sources) Sulfamethoxazole Drug Allergy 09-19-19 22 Unknown [facility] (15 sources) Tetracaine Drug Allergy 09-19-19 22 Unknown [facility] (15 sources) Trimethoprim Drug Allergy 09-19-19 22 Unknown [facility] (15 sources) Varicella zoster virus glycoprotein E Drug Allergy 09-19-19 22 [facility] (6 sources) soap Allergy to substance 09-19-[address] [facility] (16 sources) vaccine adjuvant system, AS01B liposomal; Translations: [vaccine adjuvant system, AS01B liposomal] Propensity to adverse reactions 09-19-19 [facility] (1 source) PAPER TAPE Propensity to adverse reactions 09-19-19 [facility] Work Phone: (15 sources) Adhesive Tape; Translations: [adhesive tape] Propensity to adverse reactions 04-24-19 [facility] Comment on above: PAPER TAPE (20 sources) Lisinopril; Translations: [LISINOPRIL] Drug Allergy 04-26-19 Intolerance [facility] Work Phone: Comment on above: question if try katie rgy (20 sources) Adhesive Tape; Translations: [ADHESIVE TAPE (ROSINS)] Allergy to substance 02-13-20 Rash [facility] Work Phone: (20 sources) methylPREDNISolone; Translations: [METHYLPREDNISOLONE] Drug Allergy 02-13-20 Other: See Comments [facility] Work Phone: (20 sources) Cigarette Smoke; Translations: [CIGARETTE SMOKE] Drug Intolerance 02-13-20 Shortness of Breath [facility] Work Phone: (1 source) Benzocaine Drug Allergy 01-22-20 [facility] (1 source) butamben Drug Allergy 01-22-20 [facility] (1 source) Codeine Drug Allergy 01-22-20 25 [facility] (1 source) Cortisone Drug Allergy 01-22-20 25 [facility] (1 source) Dipyridamole Drug Allergy 01-22-20 25 [facility] (1 source) lansoprazole Drug Allergy 01-22-20 [facility] (1 source) Latex Drug allergy (disorder) 01-22-20 [facility] (1 source) Lisinopril Drug Allergy 01-22-20 [facility] (1 source) Meclizine Drug Allergy 01-22-20 [facility] (1 source) Metoprolol Drug Allergy 01-22-20 [facility] (1 source) mirabegron Drug Allergy 01-22-20 [facility] (1 source) Omeprazole Drug Allergy 01-22-20 [facility] (1 source) Omeprazole Drug Allergy 01-22-20 [facility] (1 source) oxybutynin Drug Allergy 01-22-20 [facility] (1 source) Povidone-Iodine Drug Allergy 01-22-20 [facility] (1 source) Sulfamethoxazole Drug Allergy 01-22-20 [facility] (1 source) tegaserod Drug Allergy 01-22-20 [facility] (1 source) Tetracaine Drug Allergy 01-22-20 [facility] (1 source) tiZANidine Drug Allergy 01-22-20 [facility] (1 source) tolterodine Drug Allergy 01-22-20 [facility] (1 source) Trimethoprim Drug Allergy 01-22-20 [facility] (1 source) tegaserod hydrogen maleate Drug allergy (disorder) 01-22-20 [facility] (1 source) varicella-zoster virus glycoprotein E, recombinant Drug allergy (disorder) 01-22-20 [facility] Medications Current Medications Medication Drug Class(es) Dates Sig (Normalized) Sig (Original) acetaminophen 325 mg oral tablet (20 sources) Start: 01-03-2025 Start: 01-03-2025 Start: 05-05-2022 End: 12-27-2024 Start: 04-08-2019 take 325 mg by mouth once Acet aminophen Active 325 MG PO ONCE April 08, 2019 12:00am Start: 02-09-2019 End: 04-08-2019 Start: 02-09-2019 End: 04-08-2019 take 500-1000 mg [...] 08, 2019 12:17pm take 2 tablets by mo [facility] every six hours as needed acetaminophen (TYLENOL) 325 mg tablet Take 650 mg by mouth every 6 hours as needed. Tylenol arthritis Active Comment on above: Take 650 mg by mouth every 6 hours as needed. Tylenol arthritis albuterol 0.833 mg/ml / ipratropium bromide 0.167 mg/ml inhalation solution (20 sources) Anticholinergic, beta2-Adrenergic Agonist Start: 01-03-2025 Start: 01-03-2025 Start: 02-21-2023 take 3 mL by inhalat ion every six hours ipratropium-albuterol (DUONEB) 0.5 mg-3 mg(2.5 mg base)/3 mL nebu Inhale 3 mL as instructed every 6 hours. Unit dose pack. dr Park pulmonology. 02/21/2023 Active Start: 10-02-2022 End: 12-17-2024 Start: 10-02-2022 End: 12-17-2024 take 1 mL by inhalation every four hours as needed for wheezing Ipratropium-Albuterol 0.5 mg-3 mg(2.5 mg base)/3 mL solution for nebulization Discontinued 3 mL INHALATION EVERY 4 HOURS NEEDED as needed for SOB &/OR WHEEZING 180 October 02, 2022 12:00am December 17, 2024 9:47am Asthma Unspecified asthma, uncomplicated Start: 10-02-2022 take 1 mL by inhalat ion every four hours as needed Ipratropium-Albuterol Active 3 ML INHALATION EVERY 4 HOURS NEEDED 180 October 02, 2022 12:00am Comment on above: Inhale 3 mL as instr ucted every 6 hours. Unit dose pack. dr Park pulmonology. aspirin 81 mg delayed releas e oral tablet (20 sources) Platelet Aggregation Inhibitor, Nonsteroidal Anti-inflammatory Drug Start: 02-09-2019 Comment on above: Take 81 mg by mouth. cholecalciferol 0.125 mg ora l capsule (20 sources) Vitamin D Start: 10-11-2019 Start: 02-09-2019 End: 04-08-2019 Start: 02-09-2019 End: 04-08-2019 take 1 capsule by mouth once daily Cholecalciferol (Vitamin D3) 5,000 UNIT capsule Discontinued 5000 U PO DAILY February 09, 2019 1:00am April 08, 2019 12:18pm supplement take 1 capsule by mo [facility] once daily cholecalciferol, vitamin D3, 10 mcg (400 unit) cap Take 400 Units by mouth once daily. Active Comment on above: Take 400 Units by mo [facility] once daily. COMPOUNDED PRESCRIPTION (20 sources) [...] 04/26/2022 Discontinued Start: 10-13-2013 COMPOUNDED PRE SCRIPTION Wendel Antiseptic Powder (carbolic acid; zinc oxide) as needed per Dr. Arleen Burdick 0 10/13/2013 Active Comment on above: Wendel Antiseptic Powder (carbolic acid; zinc oxide) as [...] above: Take by mouth. Cranberry Fruit Concentrate (18 sources) Non-Standardized Food Allergenic Extract, Non-Standardized Plant Allergenic Extract Start: 01-31-2023 Start: 01-31-2023 take 1 tablet by all th once daily Cranberry Fruit Concentrate (Azo Cranberry) 250 mg tablet,chewable Active 250 mg PO DAILY January 31, 2023 4:11pm Complies with drug therapy Start: 01-31-2023 take 1 tablet by all th once daily Start: 01-31-2023 take 1 tablet by all [...] 31, 2023 3:11pm Start: 01-31-2023 End: 01-31-2023 Start: 01-31-2023 End: 01-31-2023 take 1 tablet [...] on above: Take 1 tablet by all three times a day as needed for muscle spasm. diazePAM 5 mg oral tablet (20 sources) Benzodiazepine Start: 01-05-2025 Start: 01-05-2025 Start: 03-25-2024 End: 03-20-2025 Start: 09-24-2023 End: 03-22-2024 take 1 tablet [...] 2 07/30/2023 09/17/2023 Discontinued Start: 01-13-2019 End: 01-04-2025 Start: 01-13-2019 End: 07-28-2023 take 1 tablet [...] gel (20 sources) Nonsteroidal Anti-inflammatory Drug Start: apply 2 g topically four times daily diclofenac (VOLTAREN) 1 % topical gel Apply 2 g to affected area four times daily. 50 g 07/22/2023 Active docusate sodium 50 mg / sennosides, longterm 8.6 mg oral tablet (2 sources) Start: Start: 01-03-2025 furosemide 40 mg oral tablet (2 sources) Loop Diuretic Start: 01-03-2025 Start: 01-03-2025 gabapentin 100 mg oral capsule (20 sources) Anti-epileptic Agent Start: 04-06-2023 End: 05-29-2025 take 3 capsules by mouth once daily [...] 04/06/2023 02/21/2023 Discontinued Start: 01-11-2014 End: 10-03-2023 Start: 01-11-2014 take 300 mg by mouth [...] Inhalational Spacing Device (Breatherite Mdi Spacer) spacer (13 sources) Start: 10-11-2019 Inhalational Spacing Device (Breatherite Mdi Spacer) spacer Active 0 .ROUTE .MEDSUPPLY 1 0 October 11, 2019 12:00am As directed Start: 10-11-2019 Inhalational S pacing Device (Breatherite Mdi Spacer) spacer Active 0 .ROUTE .MEDSUPPLY 1 October 10, 2019 11:00pm As directed Start: 10-11-2019 Inhalational S pacing Device (Breatherite Mdi Spacer) spacer Active 0 .ROUTE .MEDSUPPLY October 11, 2019 12:00am As directed 3 ml insulin glargine 100 un t/ml pen injector (2 sources) Insulin Analog Start: 01-03-2025 Start: 01-03-2025 lactulose 667 mg/ml oral dylan ution (20 sources) Osmotic Laxative Start: 12-27-2024 Start: 08-15-2023 End: 10-15-2024 Start: 08-15-2023 End: 02-20-2024 take 30 mL [...] by mouth every night. levothyroxine sodium 0.088 m g oral tablet (20 sources) l-Thyroxine Start: 04-11-2022 End: 09-24-2024 Start: 08-23-2021 End: 11-01-2021 take 1 tablet [...] 12/08/2020 08/23/2021 Discontinued Start: 01-11-2014 End: 07-26-2022 Start: 01-11-2014 End: 12-07-2020 take 1 tablet [...] on above: Take 1 tablet by all once daily. Take on empty stomach. For [...] on above: Take 1 tablet by all twice daily. Multivitamin preparation (8 sources) Start: 2019 take 1 tablet by mouth once daily Multivitamin Active 1 TABLET PO DAILY April 08, 2019 12:00am Start: 04-08-2019 take 1 tablet by all once daily Multivitamin Active 1 TABLET PO DAILY April 08, 2019 1:00am Multivitamin tablet (5 sources) Start: 04-08-2019 Multivitamin t ablet Active 1 {tbl} PO DAILY April 08, 2019 1:00am Complies with drug therapy Start: 04-08-2019 Start: 04-08-2019 Multivitamin t ablet Active 1 {tbl} PO DAILY April 08, [...] Comment on above: Take 1 capsule by [facility] twice daily for 7 days. nystatin [id number] unt/ml oral suspension (3 sources) Polyene Antifungal Start: 01-12-2025 End: 01-19-2025 Start: 09-19-2022 End: 10-03-2022 nystatin (MYCOSTATIN) powder Indications: Intertrigo Apply 1 application to affected area four times daily for 14 days. 60 g 1 09/19/2022 10/03/2022 Active Comment on above: Apply 1 application to affected area four times daily for 14 days. 2 ml ondansetron 2 mg/ml injection (2 sources) Serotonin-3 Receptor Antagonist Start: 01-03-2025 Start: 01-03-2025 pantoprazole 40 mg delayed r elease oral tablet (16 sources) Proton Pump Inhibitor Start: 01-03-2025 Start: 01-03-2025 Start: 08-15-2023 End: 08-15-2023 Start: 08-15-2023 End: 10-15-2024 silver sulfADIAZINE 10 mg/ml topical cream (1 [...] oral tablet (20 sources) Aldosterone Antagonist Start: 01-03-2025 Start: 01-03-2025 Start: 07-26-2022 End: 01-03-2025 Comment on above: Take 25 mg by mouth once daily. Take 1 tablet by all th once daily. valACYclovir 1000 mg oral tablet (8 sources) Herpesvirus Nucleoside Analog DNA Polymerase Inhibitor, Herpes Simplex Virus Nucleoside Analog DNA Polymerase Inhibitor, Herpes Zoster Virus Nucleoside Analog DNA Polymerase Inhibitor Start: 3 End: 3 take 1 tablet by mouth three times [...] th three times daily for 7 days. (6 sources) Start: 01-03-2025 Start: 10-11-2019 End: 01-01-2025 Start: 04-08-2019 Completed/Discontinued Medications Medication Drug Class(es) Dates Sig (Normalized) Sig (Original) acetaminophen 325 mg / HYDROcodone bitartrate 5 mg oral tablet (20 sources) Opioid Agonist Start: 06-19-2023 End: 08-15-2023 Start: 06-19-2023 End: 08-15-2023 Hydrocodone-Acetaminophen 5- 325 mg tablet Discontinued 1 {tbl} PO EVERY 6 HOURS NEEDED as needed for Pain 10 3 0 June 19, 2023 August 15, 2023 11:01am Acute lumbar radiculopathy Radiculopathy, lumbar region Start: 06-19-2023 take 1 tablet by all th every six hours as needed Hydrocodone-Acetaminophen Active 1 TABLE T PO EVERY 6 HOURS NEEDED 10 3 June 19, 2023 Start: 02-10-2019 End: 02-12-2019 Start: 02-10-2019 End: 02-12-2019 Hydrocodone-Acetaminophen 1 TABLET [...] 12, 2019 1:09am acetaminophen 325 mg / oxyCO DONE hydrochloride 5 mg oral tablet (6 sources) Opioid Agonist Start: 08-22-2024 End: 10-15-2024 Start: 08-22-2024 End: 10-15-2024 Oxycodone-Acetaminophen 5-32 5 mg tablet Discontinued 1 {tbl} PO EVERY [...] Moderate persistent asthma, uncomplicated Start: 07-26-2022 End: 10-02-2022 Start: 07-26-2022 End: 07-30-2022 take 10 mg [...] 09/20/2019 04/26/2022 Discontinued Start: 09-20-2019 End: 01-31-2023 Start: 09-20-2019 End: 01-31-2023 Albuterol Sulfate (Ventolin [...] NEEDED FOR SHORTNESS OF BREATH OR WHEEZING amLODIPine 5 mg oral tablet (20 sources) Dihydropyridine Calcium Channel Ranjan Start: 07-26-2022 End: 10-15-2024 Start: 07-26-2022 End: 10-15-2024 Start: 05-24-2022 End: 10-31-2024 take 1 tablet by mouth once daily Amlodipine 5 mg tablet Discontinued 5 mg PO DAILY July 26, 2022 12:00am January 31, 2023 3:52pm Start: 04-24-2022 End: 07-26-2022 Comment on above: Take 1 tablet by all th once daily. Take by mouth. benzonatate 100 mg oral caps ule (20 sources) Non-narcotic Antitussive Start: 03-12-2024 End: 12-27-2024 Start: 01-23-2024 End: 01-23-2024 take 1 capsule by mouth three times daily as needed benzonatate (TESSALON PERLE) 100 mg capsule Indications: Acute cough Take 1-2 capsules by mouth three times a day as needed for cough. 60 capsule 1 01/23/2024 Active budesonide 0.25 mg/ml inhala tion suspension (20 sources) Corticosteroid Start: 04-21-2023 End: 12-17-2024 Start: 04-21-2023 End: 12-17-2024 take 0.5 mg by inhalation every twelve hours Budesonide 0.5 mg/2 mL suspension for nebulization Discontinued 0.5 mg INHALATION Q12H 120 October 15, 2023 11:04am December 17, 2024 9:47am Asthma Moderate persistent asthma, uncomplicated Start: 10-02-2022 End: 01-31-2023 Start: 10-02-2022 End: 01-31-2023 take 1 mg by inhalation twice daily Budesonide 1 mg/2 mL suspension for nebulization Discontinued 1 mg INHALATION TWICE A DAY 60 October 02, 2022 12:00am January 31, 2023 3:48pm Chronic obstructive pulmonary disease, unspecified Start: 06-15-2020 End: 07-26-2022 Start: 06-15-2020 End: 07-26-2022 take 0.5 mg [...] 0.5 mg via nebul izer once daily. carboxymethylcell/hyp romellose (GENTEAL GEL OPHTHALMIC) (10 sources) End: 04-26-2022 carboxymethylcell/hyprome llose (GENTEAL GEL OPHTHALMIC) Use in both eyes daily at bedtime. 0 04/26/2022 Discontinued carboxymethylcel l/hypromellose (GENTEAL GEL OPHTHALMIC) Use in both eyes daily at bedtime. 0 Active Comment on above: Use in both eyes swati ly at bedtime. celecoxib 100 mg oral capsul e (7 sources) Nonsteroidal Anti-inflammatory Drug Start: 12-01-2023 End: 01-23-2024 cephalexin 500 mg oral capsu le (4 sources) Cephalosporin Antibacterial Start: 12-09-2024 End: 12-17-2024 Start: 12-09-2024 take 1 capsule by mouth every twelve hours esomeprazole 20 mg delayed r elease oral capsule (20 sources) Proton Pump Inhibitor Start: 07-26-2022 End: 01-31-2023 Start: 02-24-2017 End: 04-26-2022 take 1 capsule by mouth once daily esomeprazole (NEXIUM 24HR) 20 mg capsule Take 1 capsule by mouth once daily. Needs Namebrand over the counter, not generic. 02/24/2017 04/26/2022 Discontinued Comment on above: Take 1 capsule by [facility] once daily. Needs Namebrand over the counter, not generic. 30 actuat fluticasone furoat e 0.1 mg/actuat / vilanterol 0.025 mg/actuat dry powder inhaler (20 sources) Corticosteroid, beta2-Adrenergic Agonist Start: 07-26-2022 End: 10-02-2022 Start: 07-26-2022 End: 10-02-2022 Fluticasone Furoate-Vilanter ol (Breo Ellipta) 100-25 mcg/dose blister with device Discontinued 1 NMA INHALATION DAILY July 26, 2022 12:00am October 02, 2022 1:22pm Start: 07-26-2022 End: 10-02-2022 Fluticasone Furoate-Vilanter ol (Breo Ellipta) 100-25 mcg/dose blister with device Discontinued 1 INH INHALATION DAILY July 26, 2022 12:00am October 02, 2022 1:22pm Start: 11-04-2019 End: 06-15-2020 Start: 11-04-2019 End: 06-15-2020 Fluticasone Furoate-Vilanter ol [...] once daily. Dr. Park hydrocortisone 25 mg/ml topi elder cream (8 sources) Corticosteroid Start: 12-01-2023 End: 10-15-2024 Start: 10-17-2023 End: 10-24-2023 hydrocortisone (ANUSOL-HC) 2 [...] Converting Enzyme Inhibitor Start: 07-26-2022 End: 07-26-2022 Start: 06-02-2018 End: 04-26-2022 take 1 tablet by mouth once daily lisinopril (ZESTRIL, PRINIVIL) 10 mg tablet Take 1 tablet by mouth once daily. 90 tablet 3 02/07/2020 01/03/2021 Discontinued Comment on above: Take 1 tablet by all once daily. lubiprostone 0.008 mg oral capsule (20 sources) Chloride Channel Activator Start: 07-26-2022 End: 01-31-2023 End: 04-26-2022 take 1 capsule by mouth once daily at breakfast lubiprostone (AMITIZA) 8 mcg capsule Take 8 mcg by mouth daily with breakfast. 04/26/2022 Discontinued Comment on above: Take 8 mcg by mouth daily with breakfast. mineral oil 0.03 mg/mg / petrolatum 0.94 mg/mg ophthalmic ointment (20 sources) Start: 04-08-2019 End: 08-15-2023 Start: 04-08-2019 White Petrolat um-Mineral Oil (Systane Nighttime) 94-3 % ointment Active 1 APPLIC OPHTHALMIC 2 to 4 times per day April 08, 2019 12:00am Start: 02-24-2017 End: 04-26-2022 white petrolatum 94% - forest examiner al oil 3% 94-3 % oint Dr. Guera Menard [facility] 02/24/2017 04/26/2022 Discontinued Comment on above: Dr. uGera Menard e [facility] (14 sources) Start: 10-12-2019 End: 04-26-2022 [facility] as directed. 10/12/2019 04/26/2022 Discontinued Start: 10-12-2019 End: 04-26-2022 [facility] as d irected. 0 10/12/2019 04/26/2022 Discontinued Start: 10-12-2019 [facility] as directed. 0 10/12/2019 Active Comment on above: as directed. oseltamivir 75 mg oral capsu le (15 sources) Neuraminidase Inhibitor Start: 06-02-2018 End: 01-13-2019 polyethylene glycol 3350 170 00 mg powder for oral solution (11 sources) Osmotic Laxative Start: 08-05-2022 End: 01-31-2023 predniSONE 20 mg oral tablet (15 sources) Start: 09-18-2021 End: 04-03-2022 Problems Active Problems Problem Classification Problem Date Documented Da te Episodic/Chronic Abdominal hernia (20 sources) Hiatal hernia; Translations: [Diaphragmatic hernia without obstruction or gangrene] 03-12-2021 Episodic Abdominal pain (20 sources) Abdominal pain; Translations: [Unspecified abdominal pain] Onset: 5 09-27-2022 Episodic Allergic reactions (15 sources) Contact dermatitis; Translations: [Unspecified contact dermatitis, unspecified cause] 09-26-2021 Episodic Anxiety disorders (20 sources) Anxiety; Translations: [Anxiety disorder, unspecified] Onset: 4 10-22-2013 Chronic Asthma (20 sources) Asthma; Translations: [Unspecified asthma, uncomplicated] Chronic Complications of surgical procedures or medical care (20 sources) History of adrenalectomy; Translations: [Postprocedural adrenocortical (-medullary) hypofunction] Onset: 3 09-06-2022 Chronic Conditions associated with dizziness or vertigo (20 sources) Vertigo; Translations: [Dizziness and giddiness] Onset: 8 05-07-2017 Episodic Coronary atherosclerosis and other heart disease (20 sources) Coronary atherosclerosis; Translations: [Atherosclerotic heart disease of [place] coronary artery without angina pectoris] Onset: 5 02-27-2015 Chronic Comment on above: Mild per cath patient denies any anginal symptoms her last stress test March 2019 was negative. Deficiency and other anemia (20 sources) Anemia; Translations: [Anemia, unspecified] Onset: 1 10-18-2010 Episodic Deficiency and other anemia (1 source) Anemia, unspecified; Translations: [Anemia, unspecified] Onset: 5 Episodic Diabetes mellitus with complications (2 sources) Hyperglycemia due to diabetes mellitus; Translations: [Type 2 diabetes mellitus with hyperglycemia] Onset: 5 01-14-2025 Chronic Diabetes mellitus without complication (10 sources) Diabetic on diet only; Translations: [Type 2 diabetes mellitus without complications] Onset: 5 01-23-2024 Chronic Diabetes mellitus without complication (20 sources) Impaired fasting glycemia; Translations: [Impaired fasting glucose] Onset: 6 03-30-2015 Episodic Diseases of white blood cells (5 sources) Leukocytosis; Translations: [Elevated white blood cell count, unspecified] Onset: 5 12-27-2024 Chronic Disorders of lipid metabolism (20 sources) Mixed hyperlipidemia; Translations: [Mixed hyperlipidemia] Onset: 6 03-30-2015 Chronic E Codes: Adverse effects of medical drugs (5 sources) Adverse reaction to drug; Translations: [Adverse effect of unspecified drugs, medicaments and biological substances, initial encounter] Onset: 5 12-27-2024 Episodic E Codes: Fall (20 sources) Fall; Translations: [Unspecified fall, subsequent encounter] Onset: 8 06-02-2017 Episodic Esophageal disorders (20 sources) Sarmiento's esophagus; 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 She believes that is possible her left breast swelling is related to spironolactone Fluid and electrolyte disorders (5 sources) Lactic acidosis; Translations: [Lactic acidosis] Onset: 5 01-11-2025 Episodic Gastrointestinal hemorrhage (5 sources) Gastrointestinal hemorrhage; Translations: [Gastrointestinal hemorrhage, unspecified] Onset: 5 12-27-2024 Episodic Genitourinary symptoms and ill-defined conditions (20 sources) Genuine stress incontinence; Translations: [Stress incontinence (female) (male)] Onset: 4 09-02-2013 Chronic Genitourinary symptoms and ill-defined conditions (20 sources) Increased frequency of urination; Translations: [Frequency of micturition] Onset: 4 09-02-2013 Episodic Hemorrhoids (1 source) External hemorrhoids; Translations: [Residual hemorrhoidal skin tags] 10-17-2023 Episodic Lymphadenitis (1 source) Submandibular lymphadenopathy; Translations: [Localized enlarged lymph nodes] Episodic Nausea and vomiting (4 sources) Nausea; Translations: [Nausea] 12-13-2024 Episodic Nutritional deficiencies (5 sources) Vitamin D deficiency; Translations: [Vitamin D deficiency, unspecified] Onset: 5 Chronic Osteoarthritis (19 sources) Osteoarthritis of left knee joint; Translations: [Unilateral primary osteoarthritis, left knee] Onset: 5 12-01-2023 Chronic Other acquired deformities (7 sources) Scoliosis of lumbar spine; Translations: [Scoliosis, unspecified] 07-03-2023 Chronic Other acquired deformities (7 sources) Lumbar spondylolisthesis; Translations: [Spondylolisthesis, lumbar region] 07-03-2023 Episodic Other aftercare (1 source) Long-term current use of drug therapy; Translations: [Other fci (current) drug therapy] 09-17-2023 Episodic Other and unspecified benign neoplasm (1 source) History of polyp of colon; Translations: [Personal history of colonic polyps] Episodic Other bone disease and musculoskeletal deformities (20 sources) Segmental and somatic dysfunction; Translations: [Segmental and somatic dysfunction of lumbar region] 02-10-2019 Episodic Other circulatory disease (15 sources) H/O: heart disorder; Translations: [Personal history of other diseases of the circulatory system] 02-10-2019 Episodic Other circulatory disease (11 sources) History of transient ischemic attack; Translations: [Personal history of transient ischemic attack (TIA), and cerebral infarction without residual deficits] 08-13-2022 Episodic Other connective tissue disease (9 sources) Pain in lower limb; Translations: [Pain in right leg] 05-05-2022 Episodic Other connective tissue disease (2 sources) Pain in right leg; Translations: [Pain in limb] 05-05-2022 Episodic Other connective tissue disease (5 sources) Pain in bilateral legs; Translations: [Pain in [...] of hip, left hip] 09-24-2024 Episodic Other connective tissue disease (4 sources) Trochanteric bursitis of left hip; Translations: [Trochanteric bursitis, left hip] 06-18-2024 Episodic Other connective tissue disease (4 sources) Muscle weakness; Translations: [Muscle weakness (generalized)] 12-13-2024 Episodic Other diseases of bladder and urethra (20 sources) Overactive bladder; Translations: [Overactive bladder] Onset: 4 06-16-2013 Chronic Other gastrointestinal disorders (20 sources) Irritable bowel syndrome; Translations: [Irritable bowel syndrome without diarrhea] 02-20-2006 Chronic Other gastrointestinal disorders (11 sources) History of irritable bowel syndrome; Translations: [Personal history of other diseases of the digestive system] 08-13-2022 Episodic Other gastrointestinal disorders (11 sources) Acute constipation; Translations: [Constipation, unspecified] 08-13-2022 Episodic Other gastrointestinal disorders (8 sources) Diarrhea; Translations: [Diarrhea, unspecified] 02-24-2024 Episodic Other inflammatory condition of skin (1 source) Intertrigo; Translations: [Erythema intertrigo] Episodic Other injuries and conditions due to external causes (1 source) History of fall; Translations: [History of falling] 12-15-2020 Episodic Other injuries and conditions due to external causes (7 sources) Injury of left knee; Translations: [Unspecified injury of left lower leg, initial encounter] 11-26-2023 Episodic Other lower respiratory disease (18 sources) Chronic cough; Translations: [Chronic cough] Episodic Other lower respiratory disease (1 source) Cough; Translations: [Acute cough] 01-23-2024 Episodic Other nervous system disorders (13 sources) Difficulty walking; Translations: [Difficulty in walking, not elsewhere classified] 05-05-2022 Chronic Other nervous system disorders (2 sources) Difficulty in walking, not elsewhere classified; Translations: [Difficulty in walking] 05-05-2022 Chronic Other nervous system disorders (1 source) Impairment of balance; Translations: [Other abnormalities of gait and mobility] Episodic Other non-traumatic joint disorders (20 sources) Shoulder pain; Translations: [Pain in left shoulder] Onset: 8 06-04-2017 Episodic Other non-traumatic joint disorders (1 [...] [Obesity, Class II, BMI 35-39.9] Onset: 09-24-2024 Chronic Other skin disorders (1 source) [...] in throat] Episodic Peripheral and visceral atherosclerosis (15 sources) Peripheral vascular disease, unspecified; Translations: [Peripheral arterial disease] 02-08-2019 Chronic Comment on above: Bilateral LE small v essel disease Phlebitis; thrombophlebitis and thromboembolism (20 sources) H/O: Deep vein thrombosis; Translations: [Personal history of other venous thrombosis and embolism] Onset: 0 Resolved: 7 02-10-2019 Episodic Residual codes; unclassified (1 source) Family history of cancer of colon; Translations: [Family history of malignant neoplasm of digestive organs] Episodic Residual codes; unclassified (1 source) Family history of gene mutation; Translations: [Family history of carrier of genetic disease] Episodic Spondylosis; intervertebral disc disorders; other back problems (17 sources) Degeneration of lumbar intervertebral disc; Translations: [Other intervertebral disc degeneration, lumbar region] 02-09-2019 Chronic Spondylosis; intervertebral disc disorders; other back problems (20 sources) Chronic neck pain; Translations: [Cervicalgia] Onset: 8 09-16-2017 Episodic Sprains and strains (9 sources) Lower back injury; Translations: [Strain of muscle, fascia and tendon of lower back, initial encounter] 06-19-2023 Episodic Superficial injury; contusion (20 sources) Contusion of foot; Translations: [Contusion of unspecified foot, initial encounter] 06-18-2020 Episodic Syncope (5 sources) Vasovagal symptom; Translations: [Syncope and collapse] Onset: 5 12-13-2024 Episodic Thyroid disorders (20 sources) Hypothyroidism; Translations: [Hypothyroidism, unspecified] Onset: 1 03-12-2021 Chronic Unclassified (1 source) Obesity, Class II, BMI 35-39.9; Translations: [Obesity, Class II, BMI 35-39.9] Onset: 5 Unclassified (1 source) Acidosis, unspecified; Translations: [Acidosis, unspecified] Onset: 5 Viral infection (16 sources) Disease caused by 2019-nCoV; Translations: [COVID-19] [...] [Calculus of kidney] Onset: 09-02-2013 09-02-2013 Episodic Headache; including migraine (20 sources) Headache; Translations: [Cephalalgia] Onset: 11-28-2014 11-28-2014 Episodic Immunizations and screening for infectious disease (1 source) Encounter for immunization; Translations: [Encounter for immunization] Onset: 05-21-2024 Episodic Malaise and fatigue (1 source) Weakness; Translations: [Weakness] Onset: 08-26-2024 Episodic Other acquired deformities (1 source) Spondylolisthesis, lumbar region; Translations: [Spondylolisthesis, lumbar region] Onset: 06-18-2024 Episodic Other aftercare (1 source) Encounter for therapeutic drug level monitoring; Translations: [Encounter for therapeutic drug monitoring] Onset: 09-24-2024 Episodic Other and ill-defined cerebrovascular disease (20 [...] Translations: [Diarrhea, unspecified] Onset: 04-28-2024 Episodic Other lower respiratory disease (20 sources) [...] conditions (not mental disorders or infectious disease) (14 sources) Patient encounter status; Translations: [Encounter for screening mammogram for malignant neoplasm of breast] Onset: 03-05-2024 Episodic Residual codes; unclassified (20 sources) Bilateral lower limb edema; Translations: [Localized edema] Onset: 07-11-2019 07-11-2019 Episodic Results Test Name Value Interpretation Reference Range Facility [facility] 01-24-2025 [facility] Telephone (INTMWS) KESHIA ROJAS ([id number]) 1950 F Date Time Provider Department 01/24/25 PAULO SCOTT INTMWS During your visit today, we recorded the following information about you: Marisel Randall RN 01/24/2025 10:44 AM Signed Oneida Justice [facility] asking if pcp agreeable to follow for SN PT OT. Please phone Reshma with verbal: [phone] has secure voicemail. Juan Rodriguez APRN.COLLECTIONS REP 01/24/2025 1:18 PM Signed Okay for home health care, please let them know Jeanna Hoover MA 01/24/2025 2:05 PM Signed Left message on confidential line Jeanna Hoover MA Allergies As of Date: 01/24/2025 Noted Allergy Reaction ADHESIVE 02/12/2023 2 - Rash Comments: ECG patch made skin red and raw; needs hypoallergenic patches for ECG and other testing needing patches AGGRENOX (ASPIRIN-DIPYRIDAMOLE ) 05/27/2011 14 - Other: See Comments Comments: Headache BACTRIM (SULFAMETHOXAZOLE-TRI METH*03/20/2006 Comments: dizzy, redness, face flushed BETADINE (POVIDONE-IODINE) 11/04/2006 2 - Rash CETACAINE (BUTAMBEN-TETRACAINE- BE*09/11/2012 14 - Other: See Comments Comments: excessive [...] mandibular pain, lymphadenopathy, possible angio edema per [facility] ER note 04/24/2022 MECLIZINE 03/07/2006 7 - Swelling Comments: URINARY RETENTION,FACE FELT FUNNY METOPROLOL 04/24/2006 8 - GI Upset Comments: headache.itching.hive s. MYRBETRIQ (MIRABEGRON) 12/26/2014 14 - Other: See Comments Comments: elevated BP PREVACID (LANSOPRAZOLE) 03/07/2006 8 - GI Upset Comments: GAS,BURPING HEADACHE PRILOSEC (OMEPRAZOLE MAGNESIUM) 6 - Diarrhea TAPE (ADHESIVE TAPE (ROSINS)) 02/12/2023 2 - Rash Comments: Paper tape TIZANIDINE 03/24/2014 14 - Other: See Comments Comments: increased pain ZELNORM (TEGASEROD HYDROGEN RACHELL*03/07/2006 4 - Hives Date Reviewed: 12/06/2024 Reviewed by: Adalgisa Jim LPN - Fully Assessed Reason for Visit: [employer]: agree to follow [Other] Prescriptions as of 01/24/2025 - Magnesium Glycinate (MAG GLYCINATE) 100 mg tab Take by mouth. - gabapentin (NEURONTIN) 100 mg capsule Take 3 capsules by mouth daily at bedtime for 180 days. - gabapentin (NEURONTIN) 100 mg capsule Take 3 capsules by mouth daily at bedtime for 14 days. - amLODIPine (NORVASC) 5 mg tablet Take [...] the site. Location: right lower back. - benzonatate (TESSALON PERLE) 100 mg capsule Take 1-2 capsules by mouth three times a day as needed for cough. - diclofenac (VOLTAREN) 1 % topical gel [...] 325 mg tablet Take 650 mg by all (more content not included)... Normal [facility] Gastroenterology Visit Repor ton 01-21-2025 Gastroenterology Visit Report Normal [facility] Absolute lymphocyte countOrd ered By: Seymour Tripp on 01-17-2025 Lymphocytes Auto (Unsp spec) [#/Vol] 2.52 10*3/uL 0.83-4.51 [facility] Anion gap in Serum or Plasma Ordered By: Seymour Tripp on 01-17-2025 Anion gap [Moles/Vol] 16 mmol/L High 5-15 [facility] Automated lymphocyte count a s percentage of total leukocytesOrdered By: Seymour Tripp on 01-17-2025 Lymphocytes/100 WBC Auto (Unsp spec) 32.1 % 19-41 [facility] BUN/creatinine ratioOrdered By: Seymour Tripp on 01-17-2025 Urea nitrogen/Creatinine [Mass ratio] 17.4 mg/mg 10-20 [facility] Basophil percentageOrdered B y: Seymuor Tripp on 01-17-2025 Basophils/100 WBC (Bld) 1.1 % High 0-1 [facility] Carbon dioxide, total [Moles /volume] in Central venous bloodOrdered By: Seymour Tripp on 01-17-2025 CO2 [Moles/Vol] 23.3 mmol/L 21.0-32.0 [facility] Chloride assayOrdered By: Flavia Tripp on 01-17-2025 Chloride [Moles/Vol] 101 mmol/L 98-108 [facility] Eosinophil percentageOrdered By: Seymour Tripp on 01-17-2025 Eosinophils/100 WBC (Bld) 7.8 % High 0-5 [facility] Erythrocyte distribution wid th ratioOrdered By: [facility] Tri[facility] on 01-17-2025 Erythrocyte distribution width (RBC) [Ratio] 15.0 % High 11.6-14.6 [facility] Erythrocyte distribution wid th standard deviationOrdered By: sarayunderwoodcamila Tripp on 01-17-2025 Erythrocyte distribution width (RBC) [Ratio] 50.2 fl High 35.1-43.9 [facility] Glomerular filtration rate ( GFR) estimation/1.73 sq m using serum, plasma, or whole bOrdered By: Fareedunderwoodcamila Tripp on 01-17-2025 GFR/1.73 sq M.predicted among non-blacks MDRD (S/P/Bld) [Vol rate/Area] 81 mL/min/{1.73_m2} >60 [facility] Hematocrit Auto (Bld) [Volum e fraction]Ordered By: Seymour Tripp on 01-17-2025 Hematocrit (Bld) [Volume fraction] 27.9 % Low 37-47 [facility] Hemoglobin measurementOrdere d By: Seymour Tripp on 01-17-2025 Hemoglobin (Bld) [Mass/Vol] 8.5 g/dL Low 12.0-15. 0 [facility] Immature granulocytes/100 WB C Auto (Bld)Ordered By: Seymour Tripp on 01-17-2025 Immature granulocytes/100 WBC (Bld) 0.100 % 0.0-0.9 [facility] MCV (mean corpuscular volume ) determinationOrdered By: Seymour Tripp on 01-17-2025 MCV (RBC) [Entitic vol] 91.5 fL 81-99 [facility] Mean corpuscular hemoglobin (MCH) determinationOrdered By: sarayunderwoodcamila Tripp 01-17-2025 MCH (RBC) [Entitic mass] 27.9 pg 27.0-32.0 [facility] Monocyte percentageOrdered B y: Seymour Tripp on 01-17-2025 Monocytes/100 WBC (Bld) 7.9 % 0-10 [facility] Neutrophil percentageOrdered By: Seymour Cheocallie on 01-17-2025 Neutrophils/100 WBC (Bld) 51.0 % 47-70 [facility] Platelet countOrdered By: Flavia andres Cheocallie on 01-17-2025 Platelets (Bld) [#/Vol] 474 10*3/uL High 150-450 [facility] Potassium measurement (mass/ volume)Ordered By: Flaviasaraysammycamila Griderkaseymerline on 01-17-2025 Potassium (Unsp spec) [Mass/Vol] 3.3 mmol/L 3.3-5.1 [facility] RBC Auto (Bld) [#/Vol]Ordere d By: Seymour Cheocallie on 01-17-2025 RBC (Bld) [#/Vol] 3.05 10*6/uL Low 4.2-5.4 [facility] Serum creatinine measurement (mass/volume)Ordered By: Flaviasaraysammycamila Griderkaseymerline on 01-17-2025 Creatinine [Mass/Vol] 0.77 mg/dL 0.70-1.20 [facility] Serum glucose measurement (m ass/volume)Ordered By: Flaviasaraysammycamila Griderkaseymerline on 01-17-2025 Glucose [Mass/Vol] 153 mg/dL High 70-99 [facility] Serum or plasma calcium jojo urement (mass/volume)Ordered By: Flaviasaraysammycamila Griderkaseymerline on 01-17-2025 Calcium [Mass/Vol] 8.7 mg/dL 7.6-11.0 [facility] Serum or plasma urea nitroge n measurement (mass/volume)Ordered By: Flaviaandres Griderkaseymerline on 01-17-2025 Urea nitrogen [Mass/Vol] 13 mg/dL 4-19 [facility] Sodium levelOrdered By: Fareed woodard Cheokaseymerline on 01-17-2025 Sodium [Moles/Vol] 140 mmol/L 133-145 [facility] White blood cell (WBC) count Ordered By: Flaviasarayyamilet Cheokaseymerline on 01-17-2025 WBC (Bld) [#/Vol] 7.9 10*3/uL 4.4-11.0 [facility] Absolute lymphocyte countOrd ered By: Stew Garza on 01-14-2025 Lymphocytes Auto (Unsp spec) [#/Vol] 2.56 10*3/uL 0.83-4.51 [facility] Anion gap in Serum or Plasma Ordered By: Stew Garza on 01-14-2025 Anion gap [Moles/Vol] 13 mmol/L 5-15 [facility] Automated blood erythrocyte countOrdered By: Stew Garza on 01-14-2025 RBC (Bld) [#/Vol] 3.28 10*6/uL Low 4.2-5.4 [facility] Comment on above: Performed By: #### L 100.0100, L500.3400, L500.2500 ####[facility] [address] [place], [place], [id number] Automated blood hematocrit ( percentage)Ordered By: Stew Garza on 01-14-2025 Hematocrit (Bld) [Volume fraction] 28.7 % Low 37-47 [facility] Comment on above: Performed By: #### L 100.0100, L500.3400, L500.2500 ####[facility] [address] [place], [address] Automated lymphocyte count a s percentage of total leukocytesOrdered By: Stew Garza on 01-14-2025 Lymphocytes/100 WBC Auto (Unsp spec) 27.3 % [facility] BUN/creatinine ratioOrdered By: Stew Garza on 01-14-2025 Urea nitrogen/Creatinine [Mass ratio] 14.6 mg/mg 01-03 [facility] Basic Metabolic Profile (BMP )on 01-14-2025 BUN/CRE 14.6 RATIO Normal 01-03 [facility] Comment on above: Performed By: #### L 100.0100, L500.3400, L500.2500 ####[facility] [address] [place], [address] ECRCL 54.04 ml/min Normal 50-250 [facility] Comment on above: Performed By: #### L 100.0100, L500.3400, L500.2500 ####[facility] [address] [place], [address] GAP 13 Normal 5-15 [facility] Comment on above: Performed By: #### L 100.0100, L500.3400, L500.2500 ####[facility] [address] [place], [address] Potassium [Moles/Vol] 3.5 mmol/L Normal 3.3-5.1 [facility] Comment on above: Result Comment: Hemo lysis present, Results??could be affected.?? Performed By: #### L 100.0100, L500.3400, L500.2500 ####[facility] [address] [place], [address] Basophil percentageOrdered B y: Stew Garza on 01-14-2025 Basophils/100 WBC (Bld) 0.9 % Normal 0-1 [facility] Comment on above: Performed By: #### L 100.0100, L500.3400, L500.2500 ####[facility] [address] [place], [address] Bilirubin Test strip Ql (U)O rdered By: Stew Garza on 01-14-2025 Bilirubin Ql (U) Negative Negative [facility] Bilirubin directOrdered By: Stew Garza on 01-14-2025 Bilirubin.direct [Mass/Vol] 0.09 mg/dL Normal 0.00-0.3 0 [facility] Comment on above: Result Comment: Hemo lysis present, Results??could be affected.?? Performed By: #### L 100.0100, L500.3400, L500.2500 ####[facility] [address] [place], [address] Bilirubin, totalOrdered By: Stew Garza on 01-14-2025 Bilirubin [Mass/Vol] 0.26 mg/dL Normal 0.00-1.30 [facility] Comment on above: Performed By: #### L 100.0100, L500.3400, L500.2500 ####[facility] [address] [place], [address] CBC W/Diff, Automatedon 12-17 Absolute Lymph 2.56 X10 3/uL Normal 0.83-4.51 [facility] Comment on above: Performed By: #### L 100.0100, L500.3400, L500.2500 ####[facility] [address] [place], [address] Absolute Neut 5.3 X10 3/uL Normal 2.0-7.7 [facility] Comment on above: Performed By: #### L 100.0100, L500.3400, L500.2500 ####[facility] [address] [place], [address] IG% 0.200 Normal 0.0-0.9 [facility] Comment on above: Result Comment: IG% - Immature Granulocytes (promyelocytes, myelocytes andmetamyelocytes) > 1% indicates that a LEFT SHIFT is Present. Performed By: #### L 100.0100, L500.3400, L500.2500 ####[facility] [address] [place], [address] Lymphocytes/100 WBC (Bld) 27.3 % Normal 19-41 [facility] Comment on above: Performed By: #### L 100.0100, L500.3400, L500.2500 ####[facility] [address] [place], [address] MCHC (RBC) [Mass/Vol] 32.4 g/dL Normal 32-36 [facility] Comment on above: Performed By: #### L 100.0100, L500.3400, L500.2500 ####[facility] [address] [place], [address] Nucleated RBC (Bld) [#/Vol] 0 10*3/uL Normal 0-5 [facility] Comment on above: Performed By: #### L 100.0100, L500.3400, L500.2500 ####[facility] [address] [place], [address] Platelet mean volume (Bld) [Entitic vol] 9.1 fL Normal 6.2-12.0 [facility] Comment on above: Performed By: #### L 100.0100, L500.3400, L500.2500 ####[facility] [address] [place], [address] RDW SD 47.4 fl High 35.1-43.9 [facility] Comment on above: Performed By: #### L 100.0100, L500.3400, L500.2500 ####[facility] [address] [place], [address] Carbon dioxide, total [Moles /volume] in Central venous bloodOrdered By: Stew Garza on 01-14-2025 CO2 [Moles/Vol] 25.5 mmol/L Normal 21.0-32.0 [facility] Comment on above: Performed By: #### L 100.0100, L500.3400, L500.2500 ####[facility] [address] [place], [address] Chloride assayOrdered By: Haseeb Garza on 01-14-2025 Chloride [Moles/Vol] 99 mmol/L Normal 98-108 [facility] Comment on above: Performed By: #### L 100.0100, L500.3400, L500.2500 ####[facility] [address] [place], [address] Emergency Department Summary on 01-14-2025 Emergency Department Summary Normal [facility] Eosinophil percentageOrdered By: Stew Garza on 01-14-2025 Eosinophils/100 WBC (Bld) 4.8 % Normal 0-5 [facility] Comment on above: Performed By: #### L 100.0100, L500.3400, L500.2500 ####[facility] [address] [place], [place], [id number] Erythrocyte distribution wid th ratioOrdered By: Stew Garza on 01-14-2025 Erythrocyte distribution width (RBC) [Ratio] 14.8 % High 11.6-14.6 [facility] Comment on above: Performed By: #### L 100.0100, L500.3400, L500.2500 ####[facility] [address] [place], [place], [id number] Erythrocyte distribution wid th standard deviationOrdered By: Stew Garza on 01-14-2025 Erythrocyte distribution width (RBC) [Ratio] 47.4 fl High 35.1-43.9 [facility] Glomerular filtration rate ( GFR) estimation/1.73 sq m using serum, plasma, or whole bOrdered By: Stew Garza on 01-14-2025 GFR/1.73 sq M.predicted among non-blacks MDRD (S/P/Bld) [Vol rate/Area] 60 mL/min/{1.73_m2} Normal >60 [facility] Comment on above: Result Comment: mL/m in/1.73m2 CKD-EPI Creatinine Equation (2020) Performed By: #### L 100.0100, L500.3400, L500.2500 ####[facility] [address] [place], [place], [id number] Hemoglobin measurementOrdere d By: Stew Garza on 01-14-2025 Hemoglobin (Bld) [Mass/Vol] 9.3 g/dL Low 12.0-15. 0 [facility] Comment on above: Performed By: #### L 100.0100, L500.3400, L500.2500 ####[facility] [address] [place], [address] Hyaline casts LM.LPF (Urine sed) [#/Area]Ordered By: Stew Garza on 01-14-2025 Hyaline casts (Urine sed) [#/Area] 5 /[LPF] 0-5 [facility] Immature granulocytes/100 WB C Auto (Bld)Ordered By: Stew Garza on 01-14-2025 Immature granulocytes/100 WBC (Bld) 0.200 % 0.0-0.9 [facility] Ketones Test strip Ql (U)Ord ered By: Stew Garza on 01-14-2025 Ketones Ql (U) Negative Negative [facility] Liver Profileon 01-14-2025 ALK PHOS 73 U/L Normal 35-104 [facility] Comment on above: Performed By: #### L 100.0100, L500.3400, L500.2500 ####[facility] [address] [place], [address] AST [Catalytic activity/Vol] 27 U/L Normal <=31 [facility] Comment on above: Result Comment: Hemo lysis present, Results??could be affected.?? Performed By: #### L 100.0100, L500.3400, L500.2500 ####[facility] [address] [place], [address] T PROT 7.2 g/dL Normal 5.9-8.4 [facility] Comment on above: Performed By: #### L 100.0100, L500.3400, L500.2500 ####[facility] [address] [place], [address] MCV (mean corpuscular volume ) determinationOrdered By: Stew Garza on 01-14-2025 MCV (RBC) [Entitic vol] 87.5 fL Normal 81-99 [facility] Comment on above: Performed By: #### L 100.0100, L500.3400, L500.2500 ####[facility] [address] [place], [address] Mean corpuscular hemoglobin (MCH) determinationOrdered By: Stew Garza on 01-14-2025 MCH (RBC) [Entitic mass] 28.4 pg Normal 27.0-32.0 [facility] Comment on above: Performed By: #### L 100.0100, L500.3400, L500.2500 ####[facility] [address] [place], [address] Monocyte percentageOrdered B y: Stew Garza on 01-14-2025 Monocytes/100 WBC (Bld) 9.8 % Normal 0-10 [facility] Comment on above: Performed By: #### L 100.0100, L500.3400, L500.2500 ####[facility] [address] [place], [address] Mucus LM Ql (Urine sed)Order ed By: Stew Garza on 01-14-2025 Mucus Ql (Urine sed) 0 SEEN /hpf [facility] Neutrophil percentageOrdered By: Stew Garza on 01-14-2025 Neutrophils/100 WBC (Bld) 57.0 % Normal 47-70 [facility] Comment on above: Performed By: #### L 100.0100, L500.3400, L500.2500 ####[facility] [address] [place], [address] Nitrite Test strip Ql (U)Ord ered By: Stew Garza on 01-14-2025 Nitrite Ql (U) Negative Negative [facility] No Panel InformationOrdered By: Stew Garza on 01-14-2025 27 U/L <32 [facility] Platelet countOrdered By: Haseeb Garza on 01-14-2025 Platelets (Bld) [#/Vol] 510 10*3/uL High 150-450 [facility] Comment on above: Performed By: #### L 100.0100, L500.3400, L500.2500 ####[facility] [address] [place], [address] Potassium measurement (mass/ volume)Ordered By: Stew Garza on 01-14-2025 Potassium (Unsp spec) [Mass/Vol] 3.5 mmol/L 3.3-5.1 [facility] Protein Test strip Ql (U)Ord ered By: Stew Garza on 01-14-2025 Protein Ql (U) 15 mg/dl High Negative [facility] Serum creatinine measurement (mass/volume)Ordered By: Stew Garza on 01-14-2025 Creatinine [Mass/Vol] 0.99 mg/dL Normal 0.70-1.20 [facility] Comment on above: Performed By: #### L 100.0100, L500.3400, L500.2500 ####[facility] [address] [place], [address] Serum globulin measurementOr dered By: Stew Garza on 01-14-2025 Globulin (S) [Mass/Vol] 3.4 g/dL Normal 2.2-4.2 [facility] Comment on above: Performed By: #### L 100.0100, L500.3400, L500.2500 ####[facility] [address] [place], [address] Serum glucose measurement (m ass/volume)Ordered By: Stew Garza on 01-14-2025 Glucose [Mass/Vol] 310 mg/dL High 70-99 [facility] Comment on above: Performed By: #### L 100.0100, L500.3400, L500.2500 ####[facility] [address] [place], [address] Serum or plasma alanine martinez otransferase (ALT) measurementOrdered By: Stew Garza on 01-14-2025 ALT [Catalytic activity/Vol] 22 U/L Normal <=34 [facility] Comment on above: Performed By: #### L 100.0100, L500.3400, L500.2500 ####[facility] [address] [place], [address] Serum or plasma albumin jojo urement (mass/volume)Ordered By: Stew Garza on 01-14-2025 Albumin [Mass/Vol] 3.8 g/dL Normal 3.4-4.8 [facility] Comment on above: Performed By: #### L 100.0100, L500.3400, L500.2500 ####[facility] [address] [place], [address] Serum or plasma alkaline kamila sphatase measurementOrdered By: Stew Garza on 01-14-2025 ALP [Catalytic activity/Vol] 73 U/L 35-104 [facility] Serum or plasma calcium jojo urement (mass/volume)Ordered By: Stew Garza on 01-14-2025 Calcium [Mass/Vol] 9.2 mg/dL Normal 7.6-11.0 [facility] Comment on above: Performed By: #### L 100.0100, L500.3400, L500.2500 ####[facility] [address] [place], [address] Serum or plasma urea nitroge n measurement (mass/volume)Ordered By: Stew Garza on 01-14-2025 Urea nitrogen [Mass/Vol] 14 mg/dL Normal 4-19 [facility] Comment on above: Performed By: #### L 100.0100, L500.3400, L500.2500 ####[facility] [address] [place], [address] Sodium levelOrdered By: Sunil Garza on 01-14-2025 Sodium [Moles/Vol] 138 mmol/L Normal 133-145 [facility] Comment on above: Performed By: #### L 100.0100, L500.3400, L500.2500 ####[facility] [address] [place], [address] Squamous epithelial cells de tection in urine sediment by light microscopyOrdered By: Stew Garza on 01-14-2025 Epithelial cells.squamous LM Ql (Urine sed) 0 SEEN /hpf 5-10 [facility] Total proteinOrdered By: Marquis Garza on 01-14-2025 Protein [Mass/Vol] 7.2 g/dL 5.9-8.4 [facility] Urinalysis, Completeon 01-14 BACTERIA RARE Normal None Seen [facility] Comment on above: Order Comment: CLEAN CATCH Performed By: #### L 400.0001 ####[facility] [address] [place], [address] CAST,HYALINE 5-10 SEEN Normal 0-5 [facility] Comment on above: Order Comment: CLEAN CATCH Performed By: #### L 400.0001 ####[facility] [address] [place], [address] EPI,RENAL 0-5 SEEN Normal 0-5 [facility] Comment on above: Order Comment: CLEAN CATCH Performed By: #### L 400.0001 ####[facility] [address] [place], [address] RBC 0-5 SEEN Normal 0-5 [facility] Comment on above: Order Comment: CLEAN CATCH Performed By: #### L 400.0001 ####[facility] [address] [place], [address] WBC 0-5 SEEN Normal 0-5 [facility] Comment on above: Order Comment: CLEAN CATCH Performed By: #### L 400.0001 ####[facility] [address] [place], [address] EPI,SQUAMOUS 0 SEEN Normal 5-10 [facility] Comment on above: Order Comment: CLEAN CATCH Performed By: #### L 400.0001 ####[facility] [address] [place], [address] Mucus Ql (Urine sed) 0 SEEN Normal [facility] Comment on above: Order Comment: CLEAN CATCH Performed By: #### L 400.0001 ####[facility] [address] [place], [address] Urine clarityOrdered By: Marquis Garza on 01-14-2025 Clarity (U) Clear Clear [facility] Urine color determinationOrd ered By: Stew Garza on 01-14-2025 Color (U) Yellow Yellow [facility] Urine glucose detectionOrder ed By: Stew Garza on 01-14-2025 Glucose Ql (U) 1000 mg/dl High Normal [facility] Urine leukocyte esterase det ection by dipstickOrdered By: Stew Garza on 01-14-2025 Leukocyte esterase Test strip Ql (U) Negative Negative [facility] Urine pHOrdered By: Stew mittal on 01-14-2025 pH (U) 6.0 [pH] 5.0 - 8.0 [facility] Urine sediment bacteria coun t by microscopy (number/high power field)Ordered By: Stew Garza on 01-14-2025 Bacteria LM.HPF (Urine sed) [#/Area] RARE /hpf None Seen [facility] Urine sediment renal epithel ial cell count by microscopy (number/high power field)Ordered By: Stew Garza on 01-14-2025 Epithelial cells.renal LM.HPF (Urine sed) [#/Area] 0 /[HPF] 0-5 [facility] Urine specific gravity measu rementOrdered By: Stew Garza on 01-14-2025 Specific gravity (U) [Rel density] 1.020 1.002-1.030 [facility] Urine urobilinogen measureme ntOrdered By: Stew Garza on 01-14-2025 Urobilinogen Ql (U) Normal mg/dl Normal [facility] White blood cell (WBC) count Ordered By: Stew Garza on 01-14-2025 WBC (Bld) [#/Vol] 9.4 10*3/uL Normal 4.4-11.0 [facility] Comment on above: Performed By: #### L 100.0100, L500.3400, L500.2500 ####[facility] [address] [place], [address] White blood cell countOrdere d By: Stew Garza on 01-14-2025 White blood cell count 0-5 SEEN /hpf 0-5 [facility] Potassium measurement (mass/ volume)Ordered By: Nathalie Johns on 01-13-2025 Potassium (Unsp spec) [Mass/Vol] 2.9 mmol/L Low 3.3-5.1 [facility] Absolute lymphocyte countOrd ered By: Seymour Tripp on 01-11-2025 Lymphocytes Auto (Unsp spec) [#/Vol] 2.79 10*3/uL 0.83-4.51 [facility] Anion gap in Serum or Plasma Ordered By: Seymour Tripp on 01-11-2025 Anion gap [Moles/Vol] 10 mmol/L 5-15 [facility] Automated lymphocyte count a s percentage of total leukocytesOrdered By: Seymour Tripp on 01-11-2025 Lymphocytes/100 WBC Auto (Unsp spec) 30.4 % 19-41 [facility] BUN/creatinine ratioOrdered By: Seymour Tripp on 01-11-2025 Urea nitrogen/Creatinine [Mass ratio] 15.8 mg/mg 10-20 [facility] Basophil percentageOrdered B y: Seymour Tripp on 01-11-2025 Basophils/100 WBC (Bld) 0.5 % 0-1 [facility] Carbon dioxide, total [Moles /volume] in Central venous bloodOrdered By: Seymour Tripp on 01-11-2025 CO2 [Moles/Vol] 31.5 mmol/L 21.0-32.0 [facility] Chloride assayOrdered By: Flavia Tripp on 01-11-2025 Chloride [Moles/Vol] 98 mmol/L 98-108 [facility] Eosinophil percentageOrdered By: Seymour Tripp on 01-11-2025 Eosinophils/100 WBC (Bld) 9.3 % High 0-5 [facility] Erythrocyte distribution wid th ratioOrdered By: Seymour Tripp on 01-11-2025 Erythrocyte distribution width (RBC) [Ratio] 14.6 % 11.6-14.6 [facility] Erythrocyte distribution wid th standard deviationOrdered By: sarayunderwoodcamila Tripp on 01-11-2025 Erythrocyte distribution width (RBC) [Ratio] 47.0 fl High 35.1-43.9 [facility] Glomerular filtration rate ( GFR) estimation/1.73 sq m using serum, plasma, or whole bOrdered By: sarayunderwoodcamila Tripp on 01-11-2025 GFR/1.73 sq M.predicted among non-blacks MDRD (S/P/Bld) [Vol rate/Area] 89 mL/min/{1.73_m2} >60 [facility] Hematocrit Auto (Bld) [Volum e fraction]Ordered By: [facility] cherokeecamila Tripp on 01-11-2025 Hematocrit (Bld) [Volume fraction] 27.3 % Low 37-47 [facility] Hemoglobin measurementOrdere d By: Seymour Tripp on 01-11-2025 Hemoglobin (Bld) [Mass/Vol] 8.7 g/dL Low 12.0-15. 0 [facility] Immature granulocytes/100 WB C Auto (Bld)Ordered By: Seymour Tripp on 01-11-2025 Immature granulocytes/100 WBC (Bld) 0.400 % 0.0-0.9 [facility] MCV (mean corpuscular volume ) determinationOrdered By: Seymour Tripp on 01-11-2025 MCV (RBC) [Entitic vol] 89.5 fL 81-99 [facility] Mean corpuscular hemoglobin (MCH) determinationOrdered By: [facility] on 01-11-2025 MCH (RBC) [Entitic mass] 28.5 pg 27.0-32.0 [facility] Monocyte percentageOrdered B y: Seymour Tripp on 01-11-2025 Monocytes/100 WBC (Bld) 8.2 % 0-10 [facility] Neutrophil percentageOrdered By: andres Tripp on 01-11-2025 Neutrophils/100 WBC (Bld) 51.2 % 47-70 [facility] Platelet countOrdered By: Flavia albarocamila Griderkaseymerline on 01-11-2025 Platelets (Bld) [#/Vol] 442 10*3/uL 150-450 [facility] Potassium measurement (mass/ volume)Ordered By: Seymour Griderkaseymerline on 01-11-2025 Potassium (Unsp spec) [Mass/Vol] 2.8 mmol/L Low 3.3-5.1 [facility] RBC Auto (Bld) [#/Vol]Ordere d By: Seymour Tripp on 01-11-2025 RBC (Bld) [#/Vol] 3.05 10*6/uL Low 4.2-5.4 [facility] Serum creatinine measurement (mass/volume)Ordered By: Seymour Tripp on 01-11-2025 Creatinine [Mass/Vol] 0.71 mg/dL 0.70-1.20 [facility] Serum glucose measurement (m ass/volume)Ordered By: Seymour Tripp on 01-11-2025 Glucose [Mass/Vol] 171 mg/dL High 70-99 [facility] Serum or plasma calcium jojo urement (mass/volume)Ordered By: Seymour Griderkaseymerline on 01-11-2025 Calcium [Mass/Vol] 8.9 mg/dL 7.6-11.0 [facility] Serum or plasma urea nitroge n measurement (mass/volume)Ordered By: Seymour Tripp on 01-11-2025 Urea nitrogen [Mass/Vol] 11 mg/dL 4-19 [facility] Sodium levelOrdered By: Fareed yamilet Cheokaseymerline on 01-11-2025 Sodium [Moles/Vol] 139 mmol/L 133-145 [facility] White blood cell (WBC) count Ordered By: Seymour Tripp on 01-11-2025 WBC (Bld) [#/Vol] 9.2 10*3/uL 4.4-11.0 [facility] Surgical pathology reportOrd ered By: Teri Hare on 01-06-2025 Surgical pathology study [facility] Surgical pathology study [facility] Absolute lymphocyte countOrd ered By: Fareedsammycamila Griderkaseymerline on 01-04-2025 Lymphocytes Auto (Unsp spec) [#/Vol] 1.67 10*3/uL 0.83-4.51 [facility] Anion gap in Serum or Plasma Ordered By: Seymour Griderkaseymerline on 01-04-2025 Anion gap [Moles/Vol] 11 mmol/L 5-15 [facility] Automated lymphocyte count a s percentage of total leukocytesOrdered By: Seymoru Griderkaseymerline on 01-04-2025 Lymphocytes/100 WBC Auto (Unsp spec) 16.2 % Low 19-41 [facility] BUN/creatinine ratioOrdered By: Fareedsammycamila Griderkaseymerline on 01-04-2025 Urea nitrogen/Creatinine [Mass ratio] 19.8 mg/mg 10- [facility] Basophil percentageOrdered B y: Seymour Griderkaseymerline on 01-04-2025 Basophils/100 WBC (Bld) 0.7 % 0-1 [facility] Bilirubin, totalOrdered By: Fareedsammycamila Griderkaseymerline on 01-04-2025 Bilirubin [Mass/Vol] 0.60 mg/dL 0.00-1.30 [facility] Carbon dioxide, total [Moles /volume] in Central venous bloodOrdered By: Seymour Griderkaseymerline on 01-04-2025 CO2 [Moles/Vol] 31.0 mmol/L 21.0-32.0 [facility] Chloride assayOrdered By: Flavia sarayyamilet Griderkaseymerline on 01-04-2025 Chloride [Moles/Vol] 91 mmol/L Low 98-108 [facility] Eosinophil percentageOrdered By: Seymour Calderonmerline on 01-04-2025 Eosinophils/100 WBC (Bld) 2.8 % 0-5 [facility] Erythrocyte distribution wid th ratioOrdered By: Fareedyamilet Cheokaseymerline on 01-04-2025 Erythrocyte distribution width (RBC) [Ratio] 14.4 % 11.6-14.6 [facility] Erythrocyte distribution wid th standard deviationOrdered By: Seymour Griderkaseymerline on 01-04-2025 Erythrocyte distribution width (RBC) [Ratio] 47.5 fl High 35.1-43.9 [facility] Glomerular filtration rate ( GFR) estimation/1.73 sq m using serum, plasma, or whole bOrdered By: Seymour Tripp on 01-04-2025 GFR/1.73 sq M.predicted among non-blacks MDRD (S/P/Bld) [Vol rate/Area] 72 mL/min/{1.73_m2} >60 [facility] Hematocrit Auto (Bld) [Volum e fraction]Ordered By: Seymour Tripp on 01-04-2025 Hematocrit (Bld) [Volume fraction] 27.6 % Low 37-47 [facility] Hemoglobin measurementOrdere d By: Seymour Tripp on 01-04-2025 Hemoglobin (Bld) [Mass/Vol] 9.0 g/dL Low 12.0-15. 0 [facility] Immature granulocytes/100 WB C Auto (Bld)Ordered By: Seymour Tripp on 01-04-2025 Immature granulocytes/100 WBC (Bld) 0.400 % 0.0-0.9 [facility] MCV (mean corpuscular volume ) determinationOrdered By: Seymour Tripp on 01-04-2025 MCV (RBC) [Entitic vol] 91.4 fL 81-99 [facility] Mean corpuscular hemoglobin (MCH) determinationOrdered By: Seymour Tripp on 01-04-2025 MCH (RBC) [Entitic mass] 29.8 pg 27.0-32.0 [facility] Monocyte percentageOrdered B y: Seymour Tripp on 01-04-2025 Monocytes/100 WBC (Bld) 8.2 % 0-10 [facility] Neutrophil percentageOrdered By: andres Tripp on 01-04-2025 Neutrophils/100 WBC (Bld) 71.7 % High 47-70 [facility] No Panel InformationOrdered By: Seymour Tripp on 01-04-2025 41 U/L High <32 [facility] Platelet countOrdered By: Flavia Tripp on 01-04-2025 Platelets (Bld) [#/Vol] 423 10*3/uL 150-450 [facility] Potassium measurement (mass/ volume)Ordered By: Seymour Tripp on 01-04-2025 Potassium (Unsp spec) [Mass/Vol] 3.9 mmol/L 3.3-5.1 [facility] RBC Auto (Bld) [#/Vol]Ordere d By: Seymour Tripp on 01-04-2025 RBC (Bld) [#/Vol] 3.02 10*6/uL Low 4.2-5.4 [facility] Serum creatinine measurement (mass/volume)Ordered By: Seymour Tripp on 01-04-2025 Creatinine [Mass/Vol] 0.85 mg/dL 0.70-1.20 [facility] Serum globulin measurementOr dered By: Seymour Tripp on 01-04-2025 Globulin (S) [Mass/Vol] 3.3 g/dL 2.2-4.2 [facility] Serum glucose measurement (m ass/volume)Ordered By: Seymour Tripp on 01-04-2025 Glucose [Mass/Vol] 178 mg/dL High 70-99 [facility] Serum or plasma alanine martinez otransferase (ALT) measurementOrdered By: Seymour Tripp on 01-04-2025 ALT [Catalytic activity/Vol] 19 U/L <35 [facility] Serum or plasma albumin jojo urement (mass/volume)Ordered By: Seymour Tripp on 01-04-2025 Albumin [Mass/Vol] 3.3 g/dL Low 3.4-4.8 [facility] Serum or plasma albumin/glob ulin mass ratioOrdered By: Seymour Tripp on 01-04-2025 Albumin/Globulin [Mass ratio] 1.0 {ratio} 0.9-2.4 [facility] Serum or plasma alkaline kamila sphatase measurementOrdered By: Seymour Tripp on 01-04-2025 ALP [Catalytic activity/Vol] 71 U/L 35-104 [facility] Serum or plasma calcium jojo urement (mass/volume)Ordered By: Seymour Tripp on 01-04-2025 Calcium [Mass/Vol] 8.6 mg/dL 7.6-11.0 [facility] Serum or plasma urea nitroge n measurement (mass/volume)Ordered By: Seymour Cheocallie on 01-04-2025 Urea nitrogen [Mass/Vol] 17 mg/dL 4-19 [facility] Sodium levelOrdered By: Fareed Tripp on 01-04-2025 Sodium [Moles/Vol] 133 mmol/L 133-145 [facility] Total proteinOrdered By: Bradley Tripp on 01-04-2025 Protein [Mass/Vol] 6.6 g/dL 5.9-8.4 [facility] White blood cell (WBC) count Ordered By: Seymour Cheokaseymerline on 01-04-2025 WBC (Bld) [#/Vol] 10.3 10*3/uL 4.4-11.0 [facility] Absolute lymphocyte countOrd ered By: Clifton Wells on 01-03-2025 Lymphocytes Auto (Unsp spec) [#/Vol] 1.72 10*3/uL 0.83-4.51 [facility] Anion gap in Serum or Plasma Ordered By: Clifton Wells on 01-03-2025 Anion gap [Moles/Vol] 10 mmol/L 5-15 [facility] Automated lymphocyte count a s percentage of total leukocytesOrdered By: Clifton Wells on 01-03-2025 Lymphocytes/100 WBC Auto (Unsp spec) 16.9 % Low 19-41 [facility] BUN/creatinine ratioOrdered By: Clifton Wells on 01-03-2025 Urea nitrogen/Creatinine [Mass ratio] 23.7 mg/mg High 01-03 [facility] Basic Metabolic Profile (BMP )on 01-03-2025 BUN/CRE 23.7 RATIO High 01-03 [facility] Comment on above: Performed By: #### L 500.2500, L100.0100 ####[facility] [address] [place], [place], [id number] Calcium [Mass/Vol] 8.6 mg/dL Normal 7.6-11.0 [facility] Comment on above: Performed By: #### L 500.2500, L100.0100 ####[facility] [address] [place], [address] Chloride [Moles/Vol] 95 mmol/L Low 98-108 [facility] Comment on above: Performed By: #### L 500.2500, L100.0100 ####[facility] [address] [place], [address] CO2 [Moles/Vol] 30.9 mmol/L Normal 21.0-32.0 [facility] Comment on above: Performed By: #### L 500.2500, L100.0100 ####[facility] [address] [place], [address] Creatinine [Mass/Vol] 0.72 mg/dL Normal 0.70-1.20 [facility] Comment on above: Performed By: #### L 500.2500, L100.0100 ####[facility] [address] [place], [address] ECRCL 67.93 ml/min Normal 50-250 [facility] Comment on above: Performed By: #### L 500.2500, L100.0100 ####[facility] [address] [place], [address] GAP 10 Normal 5-15 [facility] Comment on above: Performed By: #### L 500.2500, L100.0100 ####[facility] [address] [place], [address] GFR/1.73 sq M.predicted among non-blacks MDRD (S/P/Bld) [Vol rate/Area] 88 mL/min/{1.73_m2} Normal >60 [facility] Comment on above: Result Comment: mL/m in/1.73m2 CKD-EPI Creatinine Equation (2020) Performed By: #### L 500.2500, L100.0100 ####[facility] [address] [place], [address] Glucose [Mass/Vol] 158 mg/dL High 70-99 [facility] Comment on above: Performed By: #### L 500.2500, L100.0100 ####[facility] [address] [place], [address] Potassium [Moles/Vol] 3.4 mmol/L Normal 3.3-5.1 [facility] Comment on above: Performed By: #### L 500.2500, L100.0100 ####[facility] [address] [place], [address] Sodium [Moles/Vol] 136 mmol/L Normal 133-145 [facility] Comment on above: Performed By: #### L 500.2500, L100.0100 ####[facility] [address] [place], [address] Urea nitrogen [Mass/Vol] 17 mg/dL Normal 4-19 [facility] Comment on above: Performed By: #### L 500.2500, L100.0100 ####[facility] [address] [place], [address] Basophil percentageOrdered B y: Cliftongordon Wells on 01-03-2025 Basophils/100 WBC (Bld) 0.7 % 0-1 [facility] Bedside Glucoseon 01-03-2025 FINGERSTICK GLU 190 mg/dL High 74-106 [facility] Comment on above: Result Comment: NATALIIA GEMENT OF PATIENT CARE PER NURSING PROTOCOL Performed By: #### L 501.080 ####[facility] [address] [place], [address] FINGERSTICK GLU 272 mg/dL High 74-106 [facility] Comment on above: Result Comment: NATALIIA GEMENT OF PATIENT CARE PER NURSING PROTOCOL Performed By: #### L 501.080 ####[facility] [address] [place], [address] FINGERSTICK GLU 221 mg/dL High 74-106 [facility] Comment on above: Result Comment: NATALIIA HERNANDEZ OF PATIENT CARE PER NURSING PROTOCOL Performed By: #### L 501.080 ####[facility] [address] [place], [address] CBC W/Diff, Automatedon 10-2 0-2025 Absolute Lymph 1.72 X10 3/uL Normal 0.83-4.51 [facility] Comment on above: Performed By: #### L 500.2500, L100.0100 ####[facility] [address] [place], [address] Absolute Neut 6.8 X10 3/uL Normal 2.0-7.7 [facility] Comment on above: Performed By: #### L 500.2500, L100.0100 ####[facility] [address] [place], [address] Basophils/100 WBC (Bld) 0.7 % Normal 0-1 [facility] Comment on above: Performed By: #### L 500.2500, L100.0100 ####[facility] [address] [place], [address] Eosinophils/100 WBC (Bld) 7.1 % High 0-5 [facility] Comment on above: Performed By: #### L 500.2500, L100.0100 ####[facility] [address] [place], [address] Erythrocyte distribution width (RBC) [Ratio] 14.2 % Normal 11.6-14.6 [facility] Comment on above: Performed By: #### L 500.2500, L100.0100 ####[facility] [address] [place], [address] Hematocrit (Bld) [Volume fraction] 28.1 % Low 37-47 [facility] Comment on above: Performed By: #### L 500.2500, L100.0100 ####[facility] [address] [place], [address] Hemoglobin (Bld) [Mass/Vol] 8.9 g/dL Low 12.0-15. 0 [facility] Comment on above: Performed By: #### L 500.2500, L100.0100 ####[facility] [address] [place], [address] IG% 0.300 Normal 0.0-0.9 [facility] Comment on above: Result Comment: IG% - Immature Granulocytes (promyelocytes, myelocytes andmetamyelocytes) > 1% indicates that a LEFT SHIFT is Present. Performed By: #### L 500.2500, L100.0100 ####[facility] [address] [place], [address] Lymphocytes/100 WBC (Bld) 16.9 % Low 19-41 [facility] Comment on above: Performed By: #### L 500.2500, L100.0100 ####[facility] [address] [place], [address] MCH (RBC) [Entitic mass] 29.3 pg Normal 27.0-32.0 [facility] Comment on above: Performed By: #### L 500.2500, L100.0100 ####[facility] [address] [place], [address] MCHC (RBC) [Mass/Vol] 31.7 g/dL Low 32-36 [facility] Comment on above: Performed By: #### L 500.2500, L100.0100 ####[facility] [address] [place], [address] MCV (RBC) [Entitic vol] 92.4 fL Normal 81-99 [facility] Comment on above: Performed By: #### L 500.2500, L100.0100 ####[facility] [address] [place], [address] Monocytes/100 WBC (Bld) 8.0 % Normal 0-10 [facility] Comment on above: Performed By: #### L 500.2500, L100.0100 ####[facility] [address] [place], [address] Neutrophils/100 WBC (Bld) 67.0 % Normal 47-70 [facility] Comment on above: Performed By: #### L 500.2500, L100.0100 ####[facility] [address] [place], [address] Nucleated RBC (Bld) [#/Vol] 0 10*3/uL Normal 0-5 [facility] Comment on above: Performed By: #### L 500.2500, L100.0100 ####[facility] [address] [place], [address] Platelet mean volume (Bld) [Entitic vol] 9.3 fL Normal 6.2-12.0 [facility] Comment on above: Performed By: #### L 500.2500, L100.0100 ####[facility] [address] [place], [address] Platelets (Bld) [#/Vol] 394 10*3/uL Normal 150-450 [facility] Comment on above: Performed By: #### L 500.2500, L100.0100 ####[facility] [address] [place], [address] RBC (Bld) [#/Vol] 3.04 10*6/uL Low 4.2-5.4 [facility] Comment on above: Performed By: #### L 500.2500, L100.0100 ####[facility] [address] [place], [address] RDW SD 47.8 fl High 35.1-43.9 [facility] Comment on above: Performed By: #### L 500.2500, L100.0100 ####[facility] [address] [place], [address] WBC (Bld) [#/Vol] 10.2 10*3/uL Normal 4.4-11.0 [facility] Comment on above: Performed By: #### L 500.2500, L100.0100 ####[facility] [address] [place], [address] Carbon dioxide, total [Moles /volume] in Central venous bloodOrdered By: Clifton Wells on 01-03-2025 CO2 [Moles/Vol] 30.9 mmol/L 21.0-32.0 [facility] Chloride assayOrdered By: Lindsey Wells on 01-03-2025 Chloride [Moles/Vol] 95 mmol/L Low 98-108 [facility] Eosinophil percentageOrdered By: Clifton Wells on 01-03-2025 Eosinophils/100 WBC (Bld) 7.1 % High 0-5 [facility] Erythrocyte distribution wid th ratioOrdered By: Clifton Wells on 01-03-2025 Erythrocyte distribution width (RBC) [Ratio] 14.2 % 11.6-14.6 [facility] Erythrocyte distribution wid th standard deviationOrdered By: Clifton Wells on 01-03-2025 Erythrocyte distribution width (RBC) [Ratio] 47.8 fl High 35.1-43.9 [facility] Glomerular filtration rate ( GFR) estimation/1.73 sq m using serum, plasma, or whole bOrdered By: Clifton Wells on 01-03-2025 GFR/1.73 sq M.predicted among non-blacks MDRD (S/P/Bld) [Vol rate/Area] 88 mL/min/{1.73_m2} >60 [facility] Glucose measurement at bedsi deOrdered By: Clifton Wells on 01-03-2025 Glucose [Mass/Vol] 272 mg/dL High 74-106 [facility] Hematocrit Auto (Bld) [Volum e fraction]Ordered By: Clifton Wells on 01-03-2025 Hematocrit (Bld) [Volume fraction] 28.1 % Low 37-47 [facility] Hemoglobin measurementOrdere d By: Clifton Wells on 01-03-2025 Hemoglobin (Bld) [Mass/Vol] 8.9 g/dL Low 12.0-15. 0 [facility] Immature granulocytes/100 WB C Auto (Bld)Ordered By: Clifton Wells on 01-03-2025 Immature granulocytes/100 WBC (Bld) 0.300 % 0.0-0.9 [facility] MCV (mean corpuscular volume ) determinationOrdered By: Clifton Wells on 01-03-2025 MCV (RBC) [Entitic vol] 92.4 fL 81-99 [facility] Mean corpuscular hemoglobin (MCH) determinationOrdered By: Clifton Wells on 01-03-2025 MCH (RBC) [Entitic mass] 29.3 pg 27.0-32.0 [facility] Monocyte percentageOrdered B y: Clifton Wells on 01-03-2025 Monocytes/100 WBC (Bld) 8.0 % 0-10 [facility] Neutrophil percentageOrdered By: Clifton Wells on 01-03-2025 Neutrophils/100 WBC (Bld) 67.0 % 47-70 [facility] Platelet countOrdered By: Lindsey Wells on 01-03-2025 Platelets (Bld) [#/Vol] 394 10*3/uL 150-450 [facility] Potassium measurement (mass/ volume)Ordered By: Clifton Wells on 01-03-2025 Potassium (Unsp spec) [Mass/Vol] 3.4 mmol/L 3.3-5.1 [facility] RBC Auto (Bld) [#/Vol]Ordere d By: Clifton Wells on 01-03-2025 RBC (Bld) [#/Vol] 3.04 10*6/uL Low 4.2-5.4 [facility] Serum creatinine measurement (mass/volume)Ordered By: Clifton Wells on 01-03-2025 Creatinine [Mass/Vol] 0.72 mg/dL 0.70-1.20 [facility] Serum glucose measurement (m ass/volume)Ordered By: Clifton Wells on 01-03-2025 Glucose [Mass/Vol] 158 mg/dL High 70-99 [facility] Serum or plasma calcium jojo urement (mass/volume)Ordered By: Clifton Wells on 01-03-2025 Calcium [Mass/Vol] 8.6 mg/dL 7.6-11.0 [facility] Serum or plasma urea nitroge n measurement (mass/volume)Ordered By: Clifton Wells on 01-03-2025 Urea nitrogen [Mass/Vol] 17 mg/dL 4-19 [facility] Sodium levelOrdered By: Helga Wells on 01-03-2025 Sodium [Moles/Vol] 136 mmol/L 133-145 [facility] White blood cell (WBC) count Ordered By: Clifton Wells on 01-03-2025 WBC (Bld) [#/Vol] 10.2 10*3/uL 4.4-11.0 [facility] Basic Metabolic Profile (BMP )on 01-02-2025 BUN/CRE 25.0 RATIO High 01-03 [facility] Comment on above: Performed By: #### L 100.0100, L500.2500 ####[facility] [address] [place], [address] Calcium [Mass/Vol] 8.9 mg/dL Normal 7.6-11.0 [facility] Comment on above: Performed By: #### L 100.0100, L500.2500 ####[facility] [address] [place], [address] Chloride [Moles/Vol] 94 mmol/L Low 98-108 [facility] Comment on above: Performed By: #### L 100.0100, L500.2500 ####[facility] [address] [place], [address] CO2 [Moles/Vol] 31.5 mmol/L Normal 21.0-32.0 [facility] Comment on above: Performed By: #### L 100.0100, L500.2500 ####[facility] [address] [place], [address] Creatinine [Mass/Vol] 0.84 mg/dL Normal 0.70-1.20 [facility] Comment on above: Performed By: #### L 100.0100, L500.2500 ####[facility] [address] [place], [address] ECRCL 64.69 ml/min Normal 50-250 [facility] Comment on above: Performed By: #### L 100.0100, L500.2500 ####[facility] [address] [place], [address] GAP 10 Normal 5-15 [facility] Comment on above: Performed By: #### L 100.0100, L500.2500 ####[facility] [address] [place], [address] GFR/1.73 sq M.predicted among non-blacks MDRD (S/P/Bld) [Vol rate/Area] 73 mL/min/{1.73_m2} Normal >60 [facility] Comment on above: Result Comment: mL/m in/1.73m2 CKD-EPI Creatinine Equation (2020) Performed By: #### L 100.0100, L500.2500 ####[facility] [address] [place], [address] Glucose [Mass/Vol] 196 mg/dL High 70-99 [facility] Comment on above: Performed By: #### L 100.0100, L500.2500 ####[facility] [address] [place], [address] Potassium [Moles/Vol] 3.5 mmol/L Normal 3.3-5.1 [facility] Comment on above: Performed By: #### L 100.0100, L500.2500 ####[facility] [address] [place], [address] Sodium [Moles/Vol] 136 mmol/L Normal 133-145 [facility] Comment on above: Performed By: #### L 100.0100, L500.2500 ####[facility] [address] [place], [address] Urea nitrogen [Mass/Vol] 21 mg/dL High -19 [facility] Comment on above: Performed By: #### L 100.0100, L500.2500 ####[facility] [address] [place], [address] Bedside Glucoseon 01-02-2025 FINGERSTICK GLU 209 mg/dL High 74-106 [facility] Comment on above: Result Comment: NATALIIA GEMENT OF PATIENT CARE PER NURSING PROTOCOL Performed By: #### L 501.080 ####[facility] [address] [place], [address] FINGERSTICK GLU 233 mg/dL High 74-106 [facility] Comment on above: Result Comment: NATALIIA GEMENT OF PATIENT CARE PER NURSING PROTOCOL Performed By: #### L 501.080 ####[facility] [address] [place], [address] FINGERSTICK GLU 223 mg/dL High 74-106 [facility] Comment on above: Result Comment: NATALIIA GEMENT OF PATIENT CARE PER NURSING PROTOCOL Performed By: #### L 501.080 ####[facility] [address] [place], [address] FINGERSTICK GLU 237 mg/dL High 74-106 [facility] Comment on above: Result Comment: NATALIIA GEMENT OF PATIENT CARE PER NURSING PROTOCOL Performed By: #### L 501.080 ####[facility] [address] [place], [address] FINGERSTICK GLU 183 mg/dL High 74-106 [facility] Comment on above: Result Comment: NATALIIA GEMENT OF PATIENT CARE PER NURSING PROTOCOL Performed By: #### L 501.080 ####[facility] [address] [place], [address] CBC W/Diff, Automatedon 10- Absolute Lymph 1.93 X10 3/uL Normal 0.83-4.51 [facility] Comment on above: Performed By: #### L 100.0100, L500.2500 ####[facility] [address] [place], [address] Absolute Neut 5.1 X10 3/uL Normal 2.0-7.7 [facility] Comment on above: Performed By: #### L 100.0100, L500.2500 ####[facility] [address] [place], [address] Basophils/100 WBC (Bld) 0.7 % Normal 0-1 [facility] Comment on above: Performed By: #### L 100.0100, L500.2500 ####[facility] [address] [place], [address] Eosinophils/100 WBC (Bld) 7.6 % High 0-5 [facility] Comment on above: Performed By: #### L 100.0100, L500.2500 ####[facility] [address] [place], [address] Erythrocyte distribution width (RBC) [Ratio] 14.6 % Normal 11.6-14.6 [facility] Comment on above: Performed By: #### L 100.0100, L500.2500 ####[facility] [address] [place], [address] Hematocrit (Bld) [Volume fraction] 26.9 % Low 37-47 [facility] Comment on above: Performed By: #### L 100.0100, L500.2500 ####[facility] [address] [place], [address] Hemoglobin (Bld) [Mass/Vol] 8.7 g/dL Low 12.0-15. 0 [facility] Comment on above: Performed By: #### L 100.0100, L500.2500 ####[facility] [address] [place], [address] IG% 0.700 Normal 0.0-0.9 [facility] Comment on above: Result Comment: IG% - Immature Granulocytes (promyelocytes, myelocytes andmetamyelocytes) > 1% indicates that a LEFT SHIFT is Present. Performed By: #### L 100.0100, L500.2500 ####[facility] [address] [place], [address] Lymphocytes/100 WBC (Bld) 22.3 % Normal 19-41 [facility] Comment on above: Performed By: #### L 100.0100, L500.2500 ####[facility] [address] [place], [address] MCH (RBC) [Entitic mass] 29.9 pg Normal 27.0-32.0 [facility] Comment on above: Performed By: #### L 100.0100, L500.2500 ####[facility] [address] [place], [address] MCHC (RBC) [Mass/Vol] 32.3 g/dL Normal 32-36 [facility] Comment on above: Performed By: #### L 100.0100, L500.2500 ####[facility] [address] [place], [address] MCV (RBC) [Entitic vol] 92.4 fL Normal 81-99 [facility] Comment on above: Performed By: #### L 100.0100, L500.2500 ####[facility] [address] [place], [address] Monocytes/100 WBC (Bld) 10.1 % High 0-10 [facility] Comment on above: Performed By: #### L 100.0100, L500.2500 ####[facility] [address] [place], [address] Neutrophils/100 WBC (Bld) 58.6 % Normal 47-70 [facility] Comment on above: Performed By: #### L 100.0100, L500.2500 ####[facility] [address] [place], [address] Nucleated RBC (Bld) [#/Vol] 0.2 10*3/uL Normal 0-5 [facility] Comment on above: Performed By: #### L 100.0100, L500.2500 ####[facility] [address] [place], [address] Platelet mean volume (Bld) [Entitic vol] 9.4 fL Normal 6.2-12.0 [facility] Comment on above: Performed By: #### L 100.0100, L500.2500 ####[facility] [address] [place], [address] Platelets (Bld) [#/Vol] 368 10*3/uL Normal 150-450 [facility] Comment on above: Performed By: #### L 100.0100, L500.2500 ####[facility] [address] [place], [address] RBC (Bld) [#/Vol] 2.91 10*6/uL Low 4.2-5.4 [place] [facility] Comment on above: Performed By: #### L 100.0100, L500.2500 ####[facility] [address] [place], [address] RDW SD 49.2 fl High 35.1-43.9 [facility] Comment on above: Performed By: #### L 100.0100, L500.2500 ####[facility] [address] [place], [address] WBC (Bld) [#/Vol] 8.7 10*3/uL Normal 4.4-11.0 [facility] Comment on above: Performed By: #### L 100.0100, L500.2500 ####[facility] [address] [place], [address] Bedside Glucoseon 01-01-2025 FINGERSTICK GLU 226 mg/dL High 74-106 [facility] Comment on above: Result Comment: NATALIIA GEMENT OF PATIENT CARE PER NURSING PROTOCOL Performed By: #### L 501.080 ####[facility] [address] [place], [address] FINGERSTICK GLU 208 mg/dL High 74-106 [facility] Comment on above: Result Comment: NATALIIA GEMENT OF PATIENT CARE PER NURSING PROTOCOL Performed By: #### L 501.080 ####[facility] [address] [place], [address] FINGERSTICK GLU 263 mg/dL High 74-106 [facility] Comment on above: Result Comment: NATALIIA GEMENT OF PATIENT CARE PER NURSING PROTOCOL Performed By: #### L 501.080 ####[facility] [address] [place], [address] FINGERSTICK GLU 176 mg/dL High 74-106 [facility] Comment on above: Result Comment: NATALIIA GEMENT OF PATIENT CARE PER NURSING PROTOCOL Performed By: #### L 501.080 ####[facility] [address] [place], [address] Chest 1 View (Portable)on Chest 1 View (Portable) Normal [facility] Basic Metabolic Profile (BMP )on 12-31-2024 BUN/CRE 18.7 RATIO Normal - [facility] Comment on above: Performed By: #### L 500.2500, L100.0100 ####[facility] [address] [place], [address] Calcium [Mass/Vol] 8.5 mg/dL Normal 7.6-11.0 [facility] Comment on above: Performed By: #### L 500.2500, L100.0100 ####[facility] [address] [place], [address] Chloride [Moles/Vol] 99 mmol/L Normal 98-108 [facility] Comment on above: Performed By: #### L 500.2500, L100.0100 ####[facility] [address] [place], [address] CO2 [Moles/Vol] 29.3 mmol/L Normal 21.0-32.0 [facility] Comment on above: Performed By: #### L 500.2500, L100.0100 ####[facility] [address] [place], [address] Creatinine [Mass/Vol] 0.77 mg/dL Normal 0.70-1.20 [facility] Comment on above: Performed By: #### L 500.2500, L100.0100 ####[facility] [address] [place], [address] ECRCL 69.95 ml/min Normal 50-250 [facility] Comment on above: Performed By: #### L 500.2500, L100.0100 ####[facility] [address] [place], [address] GAP 11 Normal 5-15 [facility] Comment on above: Performed By: #### L 500.2500, L100.0100 ####[facility] [address] [place], [address] GFR/1.73 sq M.predicted among non-blacks MDRD (S/P/Bld) [Vol rate/Area] 81 mL/min/{1.73_m2} Normal >60 [facility] Comment on above: Result Comment: mL/m in/1.73m2 CKD-EPI Creatinine Equation (2020) Performed By: #### L 500.2500, L100.0100 ####[facility] [address] [place], [address] Glucose [Mass/Vol] 167 mg/dL High 70-99 [facility] Comment on above: Performed By: #### L 500.2500, L100.0100 ####[facility] [address] [place], [address] Potassium [Moles/Vol] 3.1 mmol/L Low 3.3-5.1 [facility] Comment on above: Performed By: #### L 500.2500, L100.0100 ####[facility] [address] [place], [address] Sodium [Moles/Vol] 139 mmol/L Normal 133-145 [facility] Comment on above: Performed By: #### L 500.2500, L100.0100 ####[facility] [address] [place], [address] Urea nitrogen [Mass/Vol] 14 mg/dL Normal 4-19 [facility] Comment on above: Performed By: #### L 500.2500, L100.0100 ####[facility] [address] [place], [address] Bedside Glucoseon 12-31-2024 FINGERSTICK GLU 212 mg/dL High 74-106 [facility] Comment on above: Result Comment: NATALIIA GEMENT OF PATIENT CARE PER NURSING PROTOCOL Performed By: #### L 501.080 ####[facility] [address] [place], [address] FINGERSTICK GLU 243 mg/dL High 74-106 [facility] Comment on above: Result Comment: NATALIIA GEMENT OF PATIENT CARE PER NURSING PROTOCOL Performed By: #### L 501.080 ####[facility] [address] [place], [address] FINGERSTICK GLU 200 mg/dL High 74-106 [facility] Comment on above: Result Comment: NATALIIA GEMENT OF PATIENT CARE PER NURSING PROTOCOL Performed By: #### L 501.080 ####[facility] [address] [place], [address] FINGERSTICK GLU 235 mg/dL High 74-106 [facility] Comment on above: Result Comment: NATALIIA GEMENT OF PATIENT CARE PER NURSING PROTOCOL Performed By: #### L 501.080 ####[facility] [address] [place], [address] FINGERSTICK GLU 161 mg/dL High 74-106 [facility] Comment on above: Result Comment: NATALIIA GEMENT OF PATIENT CARE PER NURSING PROTOCOL Performed By: #### L 501.080 ####[facility] [address] [place], [address] FINGERSTICK GLU 217 mg/dL High 74-106 [facility] Comment on above: Result Comment: NATALIIA GEMENT OF PATIENT CARE PER NURSING PROTOCOL Performed By: #### L 501.080 ####[facility] [address] [place], [address] CBC W/Diff, Automatedon 10- Absolute Lymph 1.78 X10 3/uL Normal 0.83-4.51 [facility] Comment on above: Performed By: #### L 500.2500, L100.0100 ####[facility] [address] [place], [address] Absolute Neut 5.8 X10 3/uL Normal 2.0-7.7 [facility] Comment on above: Performed By: #### L 500.2500, L100.0100 ####[facility] [address] [place], [address] Basophils/100 WBC (Bld) 0.6 % Normal 0-1 [facility] Comment on above: Performed By: #### L 500.2500, L100.0100 ####[facility] [address] [place], [address] Eosinophils/100 WBC (Bld) 4.2 % Normal 0-5 [facility] Comment on above: Performed By: #### L 500.2500, L100.0100 ####[facility] [address] [place], [address] Erythrocyte distribution width (RBC) [Ratio] 15.2 % High 11.6-14.6 [facility] Comment on above: Performed By: #### L 500.2500, L100.0100 ####[facility] [address] [place], [address] Hematocrit (Bld) [Volume fraction] 25.2 % Low 37-47 [facility] Comment on above: Performed By: #### L 500.2500, L100.0100 ####[facility] [address] [place], [address] Hemoglobin (Bld) [Mass/Vol] 8.3 g/dL Low 12.0-15. 0 [facility] Comment on above: Performed By: #### L 500.2500, L100.0100 ####[facility] [address] [place], [address] IG% 0.500 Normal 0.0-0.9 [facility] Comment on above: Result Comment: IG% - Immature Granulocytes (promyelocytes, myelocytes andmetamyelocytes) > 1% indicates that a LEFT SHIFT is Present. Performed By: #### L 500.2500, L100.0100 ####[facility] [address] [place], [address] Lymphocytes/100 WBC (Bld) 20.1 % Normal 19-41 [facility] Comment on above: Performed By: #### L 500.2500, L100.0100 ####[facility] [address] [place], [address] MCH (RBC) [Entitic mass] 30.7 pg Normal 27.0-32.0 [facility] Comment on above: Performed By: #### L 500.2500, L100.0100 ####[facility] [address] [place], [address] MCHC (RBC) [Mass/Vol] 32.9 g/dL Normal 32-36 [facility] Comment on above: Performed By: #### L 500.2500, L100.0100 ####[facility] [address] [place], [address] MCV (RBC) [Entitic vol] 93.3 fL Normal 81-99 [facility] Comment on above: Performed By: #### L 500.2500, L100.0100 ####[facility] [address] [place], [address] Monocytes/100 WBC (Bld) 9.7 % Normal 0-10 [facility] Comment on above: Performed By: #### L 500.2500, L100.0100 ####[facility] [address] [place], [address] Neutrophils/100 WBC (Bld) 64.9 % Normal 47-70 [facility] Comment on above: Performed By: #### L 500.2500, L100.0100 ####[facility] [address] [place], [address] Nucleated RBC (Bld) [#/Vol] 0 10*3/uL Normal 0-5 [facility] Comment on above: Performed By: #### L 500.2500, L100.0100 ####[facility] [address] [place], [address] Platelet mean volume (Bld) [Entitic vol] 9.7 fL Normal 6.2-12.0 [facility] Comment on above: Performed By: #### L 500.2500, L100.0100 ####[facility] [address] [place], [address] Platelets (Bld) [#/Vol] 310 10*3/uL Normal 150-450 [facility] Comment on above: Performed By: #### L 500.2500, L100.0100 ####[facility] [address] [place], [address] RBC (Bld) [#/Vol] 2.70 10*6/uL Low 4.2-5.4 [facility] Comment on above: Performed By: #### L 500.2500, L100.0100 ####[facility] [address] [place], [address] RDW SD 50.8 fl High 35.1-43.9 [facility] Comment on above: Performed By: #### L 500.2500, L100.0100 ####[facility] [address] [place], [address] WBC (Bld) [#/Vol] 8.9 10*3/uL Normal 4.4-11.0 [facility] Comment on above: Performed By: #### L 500.2500, L100.0100 ####[facility] [address] [place], [address] Natriuretic peptide.B prohor bonnie N-Terminal [Mass/volume] in Serum or PlasmaOrdered By: Keshav Elizondo on 12-31-2024 Natriuretic peptide.B prohormone N-Terminal [Mass/Vol] 154 pg/mL <900 [facility] Pro- Brain NATRIURETIC PEPTI Zoila 12-31-2024 Natriuretic peptide B (Bld) [Mass/Vol] 154 pg/mL Normal <=900 [facility] Comment on above: Result Comment: Hear t Failure Unlikely: < 300 pg/mLHeart Failure Likely< 50 Years: > 450 pg/mL50-75 Years: > 900 pg/mL>75 Years: > 1800 pg/mL Performed By: #### L 503.7505 ####[facility] [address] [place], [address] Basic Metabolic Profile (BMP )on 12-30-2024 BUN/CRE 14.9 RATIO Normal 10-20 [facility] Comment on above: Performed By: #### L 100.0100, L500.2500 ####[facility] [address] [place], [address] Calcium [Mass/Vol] 8.2 mg/dL Normal 7.6-11.0 [facility] Comment on above: Performed By: #### L 100.0100, L500.2500 ####[facility] [address] [place], [address] Chloride [Moles/Vol] 104 mmol/L Normal 98-108 [facility] Comment on above: Performed By: #### L 100.0100, L500.2500 ####[facility] [address] [place], [address] CO2 [Moles/Vol] 26.0 mmol/L Normal 21.0-32.0 [facility] Comment on above: Performed By: #### L 100.0100, L500.2500 ####[facility] [address] [place], [address] Creatinine [Mass/Vol] 0.70 mg/dL Normal 0.70-1.20 [facility] Comment on above: Performed By: #### L 100.0100, L500.2500 ####[facility] [address] [place], [address] ECRCL 70.18 ml/min Normal 50-250 [facility] Comment on above: Performed By: #### L 100.0100, L500.2500 ####[facility] [address] [place], [address] GAP 7 Normal 5-15 [facility] Comment on above: Performed By: #### L 100.0100, L500.2500 ####[facility] [address] [place], [address] GFR/1.73 sq M.predicted among non-blacks MDRD (S/P/Bld) [Vol rate/Area] 91 mL/min/{1.73_m2} Normal >60 [facility] Comment on above: Result Comment: mL/m in/1.73m2 CKD-EPI Creatinine Equation (2020) Performed By: #### L 100.0100, L500.2500 ####[facility] [address] [place], [address] Glucose [Mass/Vol] 164 mg/dL High 70-99 [facility] Comment on above: Performed By: #### L 100.0100, L500.2500 ####[facility] [address] [place], [address] Potassium [Moles/Vol] 3.8 mmol/L Normal 3.3-5.1 [facility] Comment on above: Performed By: #### L 100.0100, L500.2500 ####[facility] [address] [place], [address] Sodium [Moles/Vol] 137 mmol/L Normal 133-145 [facility] Comment on above: Performed By: #### L 100.0100, L500.2500 ####[facility] [address] [place], [address] Urea nitrogen [Mass/Vol] 10 mg/dL Normal 4-19 [facility] Comment on above: Performed By: #### L 100.0100, L500.2500 ####[facility] [address] [place], [address] Bedside Glucoseon 12-30-2024 FINGERSTICK GLU 268 mg/dL High 74-106 [facility] Comment on above: Result Comment: NATALIIA HERNANDEZ OF PATIENT CARE PER NURSING PROTOCOL Performed By: #### L 501.080 ####[facility] [address] [place], [address] FINGERSTICK GLU 232 mg/dL High 74-106 [facility] Comment on above: Result Comment: NATALIIA GEMENT OF PATIENT CARE PER NURSING PROTOCOL Performed By: #### L 501.080 ####[facility] [address] [place], [address] FINGERSTICK GLU 177 mg/dL High 74-106 [facility] Comment on above: Result Comment: NATALIIA GEMENT OF PATIENT CARE PER NURSING PROTOCOL Performed By: #### L 501.080 ####[facility] [address] [place], [address] CBC W/Diff, Automatedon 10-1 Absolute Lymph 2.08 X10 3/uL Normal 0.83-4.51 [facility] Comment on above: Performed By: #### L 100.0100, L500.2500 ####[facility] [address] [place], [address] Absolute Neut 4.0 X10 3/uL Normal 2.0-7.7 [facility] Comment on above: Performed By: #### L 100.0100, L500.2500 ####[facility] [address] [place], [address] Basophils/100 WBC (Bld) 0.5 % Normal 0-1 [facility] Comment on above: Performed By: #### L 100.0100, L500.2500 ####[facility] [address] [place], [address] Eosinophils/100 WBC (Bld) 8.6 % High 0-5 [facility] Comment on above: Performed By: #### L 100.0100, L500.2500 ####[facility] [address] [place], [address] Erythrocyte distribution width (RBC) [Ratio] 15.9 % High 11.6-14.6 [facility] Comment on above: Performed By: #### L 100.0100, L500.2500 ####[facility] [address] [place], [address] Hematocrit (Bld) [Volume fraction] 22.7 % Low 37-47 [facility] Comment on above: Performed By: #### L 100.0100, L500.2500 ####[facility] [address] [place], [address] Hemoglobin (Bld) [Mass/Vol] 7.3 g/dL Low 12.0-15. 0 [facility] Comment on above: Performed By: #### L 100.0100, L500.2500 ####[facility] [address] [place], [address] IG% 0.400 Normal 0.0-0.9 [facility] Comment on above: Result Comment: IG% - Immature Granulocytes (promyelocytes, myelocytes andmetamyelocytes) > 1% indicates that a LEFT SHIFT is Present. Performed By: #### L 100.0100, L500.2500 ####[facility] [address] [place], [address] Lymphocytes/100 WBC (Bld) 27.7 % Normal 19-41 [facility] Comment on above: Performed By: #### L 100.0100, L500.2500 ####[facility] [address] [place], [address] MCH (RBC) [Entitic mass] 31.1 pg Normal 27.0-32.0 [facility] Comment on above: Performed By: #### L 100.0100, L500.2500 ####[facility] [address] [place], [address] MCHC (RBC) [Mass/Vol] 32.2 g/dL Normal 32-36 [facility] Comment on above: Performed By: #### L 100.0100, L500.2500 ####[facility] [address] [place], [address] MCV (RBC) [Entitic vol] 96.6 fL Normal 81-99 [facility] Comment on above: Performed By: #### L 100.0100, L500.2500 ####[facility] [address] [place], [address] Monocytes/100 WBC (Bld) 9.6 % Normal 0-10 [facility] Comment on above: Performed By: #### L 100.0100, L500.2500 ####[facility] [address] [place], [address] Neutrophils/100 WBC (Bld) 53.2 % Normal 47-70 [facility] Comment on above: Performed By: #### L 100.0100, L500.2500 ####[facility] [address] [place], [address] Nucleated RBC (Bld) [#/Vol] 0 10*3/uL Normal 0-5 [facility] Comment on above: Performed By: #### L 100.0100, L500.2500 ####[facility] [address] [place], [address] Platelet mean volume (Bld) [Entitic vol] 9.5 fL Normal 6.2-12.0 [facility] Comment on above: Performed By: #### L 100.0100, L500.2500 ####[facility] [address] [place], [address] Platelets (Bld) [#/Vol] 230 10*3/uL Normal 150-450 [facility] Comment on above: Performed By: #### L 100.0100, L500.2500 ####[facility] [address] [place], [address] RBC (Bld) [#/Vol] 2.35 10*6/uL Low 4.2-5.4 [facility] Comment on above: Performed By: #### L 100.0100, L500.2500 ####[facility] [address] [place], [address] RDW SD 54.6 fl High 35.1-43.9 [facility] Comment on above: Performed By: #### L 100.0100, L500.2500 ####[facility] [address] [place], [address] WBC (Bld) [#/Vol] 7.5 10*3/uL Normal 4.4-11.0 [facility] Comment on above: Performed By: #### L 100.0100, L500.2500 ####[facility] [address] [place], [address] Echo Completeon 12-30-2024 Echo Complete Normal [facility] Echocardiogram study reportO rdered By: Julian Paul on 12-30-2024 Study report [facility] Work Phone: Study report [facility] Work Phone: HH, Hemoglobin AND Hematocri ton 12-30-2024 Hematocrit (Bld) [Volume fraction] 25.0 % Low 37-47 [facility] Comment on above: Performed By: #### L 100.0600 ####[facility] [address] [place], [address] Hemoglobin (Bld) [Mass/Vol] 7.9 g/dL Low 12.0-15. 0 [facility] Comment on above: Performed By: #### L 100.0600 ####[facility] [address] [place], [address] Urine Cultureon 12-30-2024 URC Normal [facility] Comment on above: Performed By: #### M 100.2200 ####[facility] [address] [place], [address] Basic Metabolic Profile (BMP )on 12-29-2024 BUN/CRE 13.9 RATIO Normal 10-20 [facility] Comment on above: Performed By: #### L 500.2500, L501.2300, L501.5200, L100.0100 ####[facility] [address] [place], [address] Calcium [Mass/Vol] 8.0 mg/dL Normal 7.6-11.0 [facility] Comment on above: Performed By: #### L 500.2500, L501.2300, L501.5200, L100.0100 ####[facility] [address] [place], [address] Chloride [Moles/Vol] 107 mmol/L Normal 98-108 [facility] Comment on above: Performed By: #### L 500.2500, L501.2300, L501.5200, L100.0100 ####[facility] [address] [place], [address] CO2 [Moles/Vol] 25.3 mmol/L Normal 21.0-32.0 [facility] Comment on above: Performed By: #### L 500.2500, L501.2300, L501.5200, L100.0100 ####[facility] [address] [place], [address] Creatinine [Mass/Vol] 0.66 mg/dL Low 0.70-1.20 [facility] Comment on above: Performed By: #### L 500.2500, L501.2300, L501.5200, L100.0100 ####[facility] [address] [place], [address] ECRCL 70.14 ml/min Normal 50-250 [facility] Comment on above: Performed By: #### L 500.2500, L501.2300, L501.5200, L100.0100 ####[facility] [address] [place], [address] GAP 7 Normal 5-15 [facility] Comment on above: Performed By: #### L 500.2500, L501.2300, L501.5200, L100.0100 ####[facility] [address] [place], [address] GFR/1.73 sq M.predicted among non-blacks MDRD (S/P/Bld) [Vol rate/Area] 92 mL/min/{1.73_m2} Normal >60 [facility] Comment on above: Result Comment: mL/m in/1.73m2 CKD-EPI Creatinine Equation (2020) Performed By: #### L 500.2500, L501.2300, L501.5200, L100.0100 ####[facility] [address] [place], [address] Glucose [Mass/Vol] 201 mg/dL High 70-99 [facility] Comment on above: Performed By: #### L 500.2500, L501.2300, L501.5200, L100.0100 ####[facility] [address] [place], [address] Potassium [Moles/Vol] 3.6 mmol/L Normal 3.3-5.1 [facility] Comment on above: Performed By: #### L 500.2500, L501.2300, L501.5200, L100.0100 ####[facility] [address] [place], [address] Sodium [Moles/Vol] 140 mmol/L Normal 133-145 [facility] Comment on above: Performed By: #### L 500.2500, L501.2300, L501.5200, L100.0100 ####[facility] [address] [place], [address] Urea nitrogen [Mass/Vol] 9 mg/dL Normal 4-19 [facility] Comment on above: Performed By: #### L 500.2500, L501.2300, L501.5200, L100.0100 ####[facility] [address] [place], [address] Bedside Glucoseon 12-29-2024 FINGERSTICK GLU 206 mg/dL High 74-106 [facility] Comment on above: Result Comment: NATALIIA GEMENT OF PATIENT CARE PER NURSING PROTOCOL Performed By: #### L 501.080 ####[facility] [address] [place], [address] FINGERSTICK GLU 195 mg/dL High 74-106 [facility] Comment on above: Result Comment: NATALIIA GEMENT OF PATIENT CARE PER NURSING PROTOCOL Performed By: #### L 501.080 ####[facility] [address] [place], [address] FINGERSTICK GLU 204 mg/dL High 74-106 [facility] Comment on above: Result Comment: NATALIIA GEMENT OF PATIENT CARE PER NURSING PROTOCOL Performed By: #### L 501.080 ####[facility] [id number] [place], [address] FINGERSTICK GLU 252 mg/dL High 74-106 [facility] Comment on above: Result Comment: NATALIIA GEMENT OF PATIENT CARE PER NURSING PROTOCOL Performed By: #### L 501.080 ####[facility] [id number] [place], [address] CBC W/Diff, Automatedon 10- Absolute Lymph 2.15 X10 3/uL Normal 0.83-4.51 [facility] Comment on above: Performed By: #### L 500.2500, L501.2300, L501.5200, L100.0100 ####[facility] [address] [place], [address] Absolute Neut 5.1 X10 3/uL Normal 2.0-7.7 [facility] Comment on above: Performed By: #### L 500.2500, L501.2300, L501.5200, L100.0100 ####[facility] [address] [place], [address] Basophils/100 WBC (Bld) 0.6 % Normal 0-1 [facility] Comment on above: Performed By: #### L 500.2500, L501.2300, L501.5200, L100.0100 ####[facility] [address] [place], [address] Eosinophils/100 WBC (Bld) 6.0 % High 0-5 [facility] Comment on above: Performed By: #### L 500.2500, L501.2300, L501.5200, L100.0100 ####[facility] [address] [place], [address] Erythrocyte distribution width (RBC) [Ratio] 16.6 % High 11.6-14.6 [facility] Comment on above: Performed By: #### L 500.2500, L501.2300, L501.5200, L100.0100 ####[facility] [address] [place], [address] Hematocrit (Bld) [Volume fraction] 23.0 % Low 37-47 [facility] Comment on above: Performed By: #### L 500.2500, L501.2300, L501.5200, L100.0100 ####[facility] [address] [place], [address] Hemoglobin (Bld) [Mass/Vol] 7.3 g/dL Low 12.0-15. 0 [facility] Comment on above: Performed By: #### L 500.2500, L501.2300, L501.5200, L100.0100 ####[facility] [address] [place], [address] IG% 0.400 Normal 0.0-0.9 [facility] Comment on above: Result Comment: IG% - Immature Granulocytes (promyelocytes, myelocytes andmetamyelocytes) > 1% indicates that a LEFT SHIFT is Present. Performed By: #### L 500.2500, L501.2300, L501.5200, L100.0100 ####[facility] [address] [place], [address] Lymphocytes/100 WBC (Bld) 24.2 % Normal 19-41 [facility] Comment on above: Performed By: #### L 500.2500, L501.2300, L501.5200, L100.0100 ####[facility] [address] [place], [address] MCH (RBC) [Entitic mass] 30.7 pg Normal 27.0-32.0 [facility] Comment on above: Performed By: #### L 500.2500, L501.2300, L501.5200, L100.0100 ####[facility] [address] [place], [address] MCHC (RBC) [Mass/Vol] 31.7 g/dL Low 32-36 [facility] Comment on above: Performed By: #### L 500.2500, L501.2300, L501.5200, L100.0100 ####[facility] [address] [place], [address] MCV (RBC) [Entitic vol] 96.6 fL Normal 81-99 [facility] Comment on above: Performed By: #### L 500.2500, L501.2300, L501.5200, L100.0100 ####[facility] [address] [place], [address] Monocytes/100 WBC (Bld) 11.1 % High 0-10 [facility] Comment on above: Performed By: #### L 500.2500, L501.2300, L501.5200, L100.0100 ####[facility] [address] [place], [address] Neutrophils/100 WBC (Bld) 57.7 % Normal 47-70 [facility] Comment on above: Performed By: #### L 500.2500, L501.2300, L501.5200, L100.0100 ####[facility] [address] [place], [address] Nucleated RBC (Bld) [#/Vol] 0 10*3/uL Normal 0-5 [facility] Comment on above: Performed By: #### L 500.2500, L501.2300, L501.5200, L100.0100 ####[facility] [address] [place], [address] Platelet mean volume (Bld) [Entitic vol] 10.1 fL Normal 6.2-12.0 [facility] Comment on above: Performed By: #### L 500.2500, L501.2300, L501.5200, L100.0100 ####[facility] [address] [place], [address] Platelets (Bld) [#/Vol] 237 10*3/uL Normal 150-450 [facility] Comment on above: Performed By: #### L 500.2500, L501.2300, L501.5200, L100.0100 ####[facility] [address] [place], [address] RBC (Bld) [#/Vol] 2.38 10*6/uL Low 4.2-5.4 [facility] Comment on above: Performed By: #### L 500.2500, L501.2300, L501.5200, L100.0100 ####[facility] [address] [place], [address] RDW SD 55.6 fl High 35.1-43.9 [facility] Comment on above: Performed By: #### L 500.2500, L501.2300, L501.5200, L100.0100 ####[facility] [address] [place], [address] WBC (Bld) [#/Vol] 8.9 10*3/uL Normal 4.4-11.0 [facility] Comment on above: Performed By: #### L 500.2500, L501.2300, L501.5200, L100.0100 ####[facility] [address] [place], [address] Electrocardiogram reportOrde red By: Julian Paul on 12-29-2024 EKG study [facility] Work Phone: EKG study [facility] Work Phone: HH, Hemoglobin AND Hematocri ton 12-29-2024 Hematocrit (Bld) [Volume fraction] 24.4 % Low 37-47 [facility] Comment on above: Performed By: #### L 100.0600 ####[facility] [address] [place], [address] Hemoglobin (Bld) [Mass/Vol] 7.7 g/dL Low 12.0-15. 0 [facility] Comment on above: Performed By: #### L 100.0600 ####[facility] [address] [place], [address] Magnesiumon 12-29-2024 Magnesium [Mass/Vol] 2.1 mg/dL Normal 1.5-2.2 [facility] Comment on above: Performed By: #### L 500.2500, L501.2300, L501.5200, L100.0100 ####[facility] [address] [place], [address] Magnesium measurement (mass/ volume)Ordered By: Keshav Elizondo on 12-29-2024 Magnesium (Unsp spec) [Mass/Vol] 2.1 mg/dL 1.5-2.2 [facility] Phosphoruson 12-29-2024 Phosphate [Mass/Vol] 3.1 mg/dL Normal 2.7-4.5 [facility] Comment on above: Performed By: #### L 500.2500, L501.2300, L501.5200, L100.0100 ####[facility] [address] [place], [address] 12 Lead EKGon 12-28-2024 12 Lead EKG Normal [facility] Activated partial thrombopla stin time (aPTT) in platelet poor plasma by coagulation aOrdered By: Ang Josue on 12-28-2024 aPTT Coag (PPP) [Time] 23.3 s Low 24.1-36.2 [facility] Bedside Glucoseon 12-28-2024 FINGERSTICK GLU 166 mg/dL High 74-106 [facility] Comment on above: Result Comment: NATALIIA GEMENT OF PATIENT CARE PER NURSING PROTOCOL Performed By: #### L 501.080 ####[facility] [address] [place], [address] FINGERSTICK GLU 189 mg/dL High 74-106 [facility] Comment on above: Result Comment: NATALIIA GEMENT OF PATIENT CARE PER NURSING PROTOCOL Performed By: #### L 501.080 ####[facility] [address] [place], [address] FINGERSTICK GLU 186 mg/dL High -106 [facility] Comment on above: Result Comment: NATALIIA GEMENT OF PATIENT CARE PER NURSING PROTOCOL Performed By: #### L 501.080 ####[facility] [address] [place], [address] FINGERSTICK GLU 177 mg/dL High 74-106 [facility] Comment on above: Result Comment: NATALIIA HERNANDEZ OF PATIENT CARE PER NURSING PROTOCOL Performed By: #### L 501.080 ####[facility] [address] [place], [address] Bilirubin, totalOrdered By: Shelia Campos on 12-28-2024 Bilirubin [Mass/Vol] 0.33 mg/dL 0.00-1.30 [facility] CBC W/Diff, Automatedon 12-15 Absolute Lymph 2.70 X10 3/uL Normal 0.83-4.51 [facility] Comment on above: Performed By: #### L 501.2300, L501.5200, L500.4050, L100.0100, L501.9520 ####[facility] [address] [place], [address] Absolute Neut 5.2 X10 3/uL Normal 2.0-7.7 [facility] Comment on above: Performed By: #### L 501.2300, L501.5200, L500.4050, L100.0100, L501.9520 ####[facility] [address] [place], [address] Basophils/100 WBC (Bld) 0.6 % Normal 0-1 [facility] Comment on above: Performed By: #### L 501.2300, L501.5200, L500.4050, L100.0100, L501.9520 ####[facility] [address] [place], [address] Eosinophils/100 WBC (Bld) 7.2 % High 0-5 [facility] Comment on above: Performed By: #### L 501.2300, L501.5200, L500.4050, L100.0100, L501.9520 ####[facility] [address] [place], [address] Erythrocyte distribution width (RBC) [Ratio] 16.3 % High 11.6-14.6 [facility] Comment on above: Performed By: #### L 501.2300, L501.5200, L500.4050, L100.0100, L501.9520 ####[facility] [address] [place], [address] Hematocrit (Bld) [Volume fraction] 21.2 % Low 37-47 [facility] Comment on above: Performed By: #### L 501.2300, L501.5200, L500.4050, L100.0100, L501.9520 ####[facility] [address] [place], [address] Hemoglobin (Bld) [Mass/Vol] 7.2 g/dL Low 12.0-15. 0 [facility] Comment on above: Performed By: #### L 501.2300, L501.5200, L500.4050, L100.0100, L501.9520 ####[facility] [address] [place], [address] IG% 0.400 Normal 0.0-0.9 [facility] Comment on above: Result Comment: IG% - Immature Granulocytes (promyelocytes, myelocytes andmetamyelocytes) > 1% indicates that a LEFT SHIFT is Present. Performed By: #### L 501.2300, L501.5200, L500.4050, L100.0100, L501.9520 ####[facility] [address] [place], [address] Lymphocytes/100 WBC (Bld) 28.6 % Normal 19-41 [facility] Comment on above: Performed By: #### L 501.2300, L501.5200, L500.4050, L100.0100, L501.9520 ####[facility] [address] [place], [address] MCH (RBC) [Entitic mass] 31.6 pg Normal 27.0-32.0 [facility] Comment on above: Performed By: #### L 501.2300, L501.5200, L500.4050, L100.0100, L501.9520 ####[facility] [address] [place], [address] MCHC (RBC) [Mass/Vol] 34.0 g/dL Normal 32-36 [facility] Comment on above: Performed By: #### L 501.2300, L501.5200, L500.4050, L100.0100, L501.9520 ####[facility] [address] [place], [address] MCV (RBC) [Entitic vol] 93.0 fL Normal 81-99 [facility] Comment on above: Performed By: #### L 501.2300, L501.5200, L500.4050, L100.0100, L501.9520 ####[facility] [address] [place], [address] Monocytes/100 WBC (Bld) 7.9 % Normal 0-10 [facility] Comment on above: Performed By: #### L 501.2300, L501.5200, L500.4050, L100.0100, L501.9520 ####[facility] [address] [place], [address] Neutrophils/100 WBC (Bld) 55.3 % Normal 47-70 [facility] Comment on above: Performed By: #### L 501.2300, L501.5200, L500.4050, L100.0100, L501.9520 ####[facility] [address] [place], [address] Nucleated RBC (Bld) [#/Vol] 0 10*3/uL Normal 0-5 [facility] Comment on above: Performed By: #### L 501.2300, L501.5200, L500.4050, L100.0100, L501.9520 ####[facility] [address] [place], [address] Platelet mean volume (Bld) [Entitic vol] 9.9 fL Normal 6.2-12.0 [facility] Comment on above: Performed By: #### L 501.2300, L501.5200, L500.4050, L100.0100, L501.9520 ####[facility] [address] [place], [address] Platelets (Bld) [#/Vol] 217 10*3/uL Normal 150-450 [facility] Comment on above: Performed By: #### L 501.2300, L501.5200, L500.4050, L100.0100, L501.9520 ####[facility] [address] [place], [address] RBC (Bld) [#/Vol] 2.28 10*6/uL Low 4.2-5.4 [facility] Comment on above: Performed By: #### L 501.2300, L501.5200, L500.4050, L100.0100, L501.9520 ####[facility] [address] [place], [address] RDW SD 53.9 fl High 35.1-43.9 [facility] Comment on above: Performed By: #### L 501.2300, L501.5200, L500.4050, L100.0100, L501.9520 ####[facility] [address] [place], [address] WBC (Bld) [#/Vol] 9.5 10*3/uL Normal 4.4-11.0 [facility] Comment on above: Performed By: #### L 501.2300, L501.5200, L500.4050, L100.0100, L501.9520 ####[facility] [address] [place], [address] Chest 1 View (Portable)on Chest 1 View (Portable) Normal [facility] Comprehensive Metabolic Prof ilon 12-28-2024 Albumin [Mass/Vol] 2.9 g/dL Low 3.4-4.8 [facility] Comment on above: Performed By: #### L 501.2300, L501.5200, L500.4050, L100.0100, L501.9520 ####[facility] [address] [place], [address] Albumin/Globulin [Mass ratio] 1.4 {ratio} Normal 0.9-2.4 [facility] Comment on above: Performed By: #### L 501.2300, L501.5200, L500.4050, L100.0100, L501.9520 ####[facility] [address] [place], [address] ALK PHOS 46 U/L Normal 35-104 [facility] Comment on above: Performed By: #### L 501.2300, L501.5200, L500.4050, L100.0100, L501.9520 ####[facility] [address] [place], [address] ALT [Catalytic activity/Vol] 15 U/L Normal <=34 [facility] Comment on above: Performed By: #### L 501.2300, L501.5200, L500.4050, L100.0100, L501.9520 ####[facility] [address] [place], [address] AST [Catalytic activity/Vol] 14 U/L Normal <=31 [facility] Comment on above: Performed By: #### L 501.2300, L501.5200, L500.4050, L100.0100, L501.9520 ####[facility] [address] [place], [address] Bilirubin [Mass/Vol] 0.33 mg/dL Normal 0.00-1.30 [facility] Comment on above: Performed By: #### L 501.2300, L501.5200, L500.4050, L100.0100, L501.9520 ####[facility] [address] [place], [address] BUN/CRE 20.1 RATIO High 10-20 [facility] Comment on above: Performed By: #### L 501.2300, L501.5200, L500.4050, L100.0100, L501.9520 ####[facility] [address] [place], [address] Calcium [Mass/Vol] 8.0 mg/dL Normal 7.6-11.0 [facility] Comment on above: Performed By: #### L 501.2300, L501.5200, L500.4050, L100.0100, L501.9520 ####[facility] [address] [place], [address] Chloride [Moles/Vol] 108 mmol/L Normal 98-108 [facility] Comment on above: Performed By: #### L 501.2300, L501.5200, L500.4050, L100.0100, L501.9520 ####[facility] [address] [place], [address] CO2 [Moles/Vol] 24.6 mmol/L Normal 21.0-32.0 [facility] Comment on above: Performed By: #### L 501.2300, L501.5200, L500.4050, L100.0100, L501.9520 ####[facility] [address] [place], [address] Creatinine [Mass/Vol] 0.58 mg/dL Low 0.70-1.20 [facility] Comment on above: Performed By: #### L 501.2300, L501.5200, L500.4050, L100.0100, L501.9520 ####[facility] [address] [place], [address] ECRCL 72.52 ml/min Normal 50-250 [facility] Comment on above: Performed By: #### L 501.2300, L501.5200, L500.4050, L100.0100, L501.9520 ####[facility] [address] [place], [address] GAP 6 Normal 5-15 [facility] Comment on above: Performed By: #### L 501.2300, L501.5200, L500.4050, L100.0100, L501.9520 ####[facility] [address] [place], [address] GFR/1.73 sq M.predicted among non-blacks MDRD (S/P/Bld) [Vol rate/Area] 95 mL/min/{1.73_m2} Normal >60 [facility] Comment on above: Result Comment: mL/m in/1.73m2 CKD-EPI Creatinine Equation (2020) Performed By: #### L 501.2300, L501.5200, L500.4050, L100.0100, L501.9520 ####[facility] [address] [place], [address] Globulin (S) [Mass/Vol] 2.1 g/dL Low 2.2-4.2 [facility] Comment on above: Performed By: #### L 501.2300, L501.5200, L500.4050, L100.0100, L501.9520 ####[facility] [address] [place], [address] Glucose [Mass/Vol] 185 mg/dL High 70-99 [facility] Comment on above: Performed By: #### L 501.2300, L501.5200, L500.4050, L100.0100, L501.9520 ####[facility] [address] [place], [address] Potassium [Moles/Vol] 4.1 mmol/L Normal 3.3-5.1 [facility] Comment on above: Performed By: #### L 501.2300, L501.5200, L500.4050, L100.0100, L501.9520 ####[facility] [address] [place], [address] Sodium [Moles/Vol] 139 mmol/L Normal 133-145 [facility] Comment on above: Performed By: #### L 501.2300, L501.5200, L500.4050, L100.0100, L501.9520 ####[facility] [address] [place], [address] T PROT 5.0 g/dL Low 5.9-8.4 [facility] Comment on above: Performed By: #### L 501.2300, L501.5200, L500.4050, L100.0100, L501.9520 ####[facility] [address] [place], [address] Urea nitrogen [Mass/Vol] 12 mg/dL Normal 4-19 [facility] Comment on above: Performed By: #### L 501.2300, L501.5200, L500.4050, L100.0100, L501.9520 ####[facility] [address] [place], [address] EGD Reporton 12-28-2024 EGD Report Normal [facility] HH, Hemoglobin AND Hematocri ton 12-28-2024 Hematocrit (Bld) [Volume fraction] 25.4 % Low 37-47 [facility] Comment on above: Performed By: #### L 100.0600 ####[facility] [address] [place], [address] Hemoglobin (Bld) [Mass/Vol] 8.3 g/dL Low 12.0-15. 0 [facility] Comment on above: Performed By: #### L 100.0600 ####[facility] [address] [place], [address] HCT Normal 37-47 [facility] Comment on above: Result Comment: OVER LAPPING ORDER-OKAY TO CANCEL PER RN Performed By: #### L 100.0600 ####[facility] [address] [place], [address] HGB Normal 12.0-15.0 [facility] Comment on above: Result Comment: OVER LAPPING ORDER-OKAY TO CANCEL PER RN Performed By: #### L 100.0600 ####[facility] [address] [place], [address] MR/OP.PROVATon 12-28-2024 MR/OP.PROVAT Normal [facility] MR/POSTOP.ANEon 12-28-2024 MR/POSTOP.ANE Normal [facility] MR/MDKIXYQT1fr 12-28-2024 MR/POSTOPAN2 Normal [facility] Magnesiumon 12-28-2024 Magnesium [Mass/Vol] 2.2 mg/dL Normal 1.5-2.2 [facility] Comment on above: Result Comment: AMENDED REPORT 12/28/24 0522 MG previously reported as: 2.1 mg/dL Performed By: #### L 501.2300, L501.5200, L500.4050, L100.0100, L501.9520 ####[facility] [address] [place], [address] No Panel InformationOrdered By: Shelia Campos on 12-28-2024 14 U/L <32 [facility] Partial Thromboplast Timeon 12-28-2024 aPTT Coag (Bld) [Time] 23.3 s Low 24.1-36.2 [facility] Comment on above: Performed By: #### L 300.3900, L300.4310 ####[facility] [address] [place], [address] Phosphoruson 12-28-2024 Phosphate [Mass/Vol] 2.9 mg/dL Normal 2.7-4.5 [facility] Comment on above: Result Comment: AMENDED REPORT 12/28/24 0522 PHOS previously reported as: 2.8 mg/dL Performed By: #### L 501.2300, L501.5200, L500.4050, L100.0100, L501.9520 ####[facility] [address] [place], [address] Prothrombin Time w/INRon INR Coag (PPP) [Relative time] 1.1 {INR} Normal [facility] Comment on above: Performed By: #### L 300.3900, L300.4310 ####[facility] [address] [place], [address] PT Coag (PPP) [Time] 14.5 s Normal 11.7-14.9 [facility] Comment on above: Performed By: #### L 300.3900, L300.4310 ####[facility] [address] [place], [address] Prothrombin timeOrdered By: Ang Josue on 12-28-2024 PT Coag (PPP) [Time] 14.5 s 11.7-14.9 [facility] Serum globulin measurementOr dered By: Shelia Campos on 12-28-2024 Globulin (S) [Mass/Vol] 2.1 g/dL Low 2.2-4.2 [facility] Serum or plasma alanine martinez otransferase (ALT) measurementOrdered By: Shelia Campos on 12-28-2024 ALT [Catalytic activity/Vol] 15 U/L <35 [facility] Serum or plasma albumin jojo urement (mass/volume)Ordered By: Shelia Campos on 12-28-2024 Albumin [Mass/Vol] 2.9 g/dL Low 3.4-4.8 [facility] Serum or plasma albumin/glob ulin mass ratioOrdered By: Shelia Campos on 12-28-2024 Albumin/Globulin [Mass ratio] 1.4 {ratio} 0.9-2.4 [facility] Serum or plasma alkaline kamila sphatase measurementOrdered By: Shelia Campos on 12-28-2024 ALP [Catalytic activity/Vol] 46 U/L 35-104 [facility] Surgery Specimen Level Lily 12-28-2024 Surgery Specimen Level IV Normal [facility] Comment on above: Performed By: #### P SUIV ####[facility] [address] [place], [place], [id number] TSH DL <= 0.005 mIU/L QnOrde red By: Ang Josue on 12-28-2024 TSH Qn 6.330 uIU/mL High 0.300-4.200 [facility] Thyroid Stim Hormone (TSH)on 12-28-2024 TSH 6.330 uIU/mL High 0.300-4.200 [facility] Comment on above: Result Comment: AMENDED REPORT 12/28/24 0522 TSH previously reported as: 6.340 H uIU/mL Performed By: #### L 501.2300, L501.5200, L500.4050, L100.0100, L501.9520 ####[facility] [address] [place], [place], [id number] Total proteinOrdered By: Eusebia Campos on 12-28-2024 Protein [Mass/Vol] 5.0 g/dL Low 5.9-8.4 [facility] Abdomen/Pelvis W IV Cont ONL Yon 12-27-2024 Abdomen/Pelvis W IV Cont ONLY Normal [facility] BRCon 12-27-2024 RC Normal [facility] Comment on above: Result Comment: [id number] AP RC TRANSFUSED 12/27/24 1258 Performed By: #### L 300.4310, L300.3900, BRC, BTS ####[facility] [address] [place], [address] Bedside Glucoseon 12-27-2024 FINGERSTICK GLU 190 mg/dL High 74-106 [facility] Comment on above: Result Comment: NATALIIA HERNANDEZ OF PATIENT CARE PER NURSING PROTOCOL Performed By: #### L 501.080 ####[facility] [address] [place], [address] Bilirubin Test strip Ql (U)O rdered By: Shashi Veronica on 12-27-2024 Bilirubin Ql (U) Negative Negative [facility] CBC W/Diff, Automatedon 12-15 Absolute Lymph 2.57 X10 3/uL Normal 0.83-4.51 [facility] Comment on above: Performed By: #### L 100.0100, L501.2450, L500.4050 ####[facility] [address] [place], [address] Absolute Neut 8.1 X10 3/uL High 2.0-7.7 [facility] Comment on above: Performed By: #### L 100.0100, L501.2450, L500.4050 ####[facility] [address] [place], [address] Basophils/100 WBC (Bld) 0.5 % Normal 0-1 [facility] Comment on above: Performed By: #### L 100.0100, L501.2450, L500.4050 ####[facility] [address] [place], [address] Eosinophils/100 WBC (Bld) 3.8 % Normal 0-5 [facility] Comment on above: Performed By: #### L 100.0100, L501.2450, L500.4050 ####[facility] [address] [place], [address] Erythrocyte distribution width (RBC) [Ratio] 14.1 % Normal 11.6-14.6 [facility] Comment on above: Performed By: #### L 100.0100, L501.2450, L500.4050 ####[facility] [address] [place], [address] Hematocrit (Bld) [Volume fraction] 21.2 % Low 37-47 [facility] Comment on above: Performed By: #### L 100.0100, L501.2450, L500.4050 ####[facility] [address] [place], [address] Hemoglobin (Bld) [Mass/Vol] 7.0 g/dL Low 12.0-15. 0 [facility] Comment on above: Performed By: #### L 100.0100, L501.2450, L500.4050 ####[facility] [address] [place], [address] IG% 0.600 Normal 0.0-0.9 [facility] Comment on above: Result Comment: IG% - Immature Granulocytes (promyelocytes, myelocytes andmetamyelocytes) > 1% indicates that a LEFT SHIFT is Present. Performed By: #### L 100.0100, L501.2450, L500.4050 ####[facility] [address] [place], [address] Lymphocytes/100 WBC (Bld) 21.4 % Normal 19-41 [facility] Comment on above: Performed By: #### L 100.0100, L501.2450, L500.4050 ####[facility] [address] [place], [address] MCH (RBC) [Entitic mass] 31.8 pg Normal 27.0-32.0 [facility] Comment on above: Performed By: #### L 100.0100, L501.2450, L500.4050 ####[facility] [address] [place], [address] MCHC (RBC) [Mass/Vol] 33.0 g/dL Normal 32-36 [facility] Comment on above: Performed By: #### L 100.0100, L501.2450, L500.4050 ####[facility] [address] [place], [address] MCV (RBC) [Entitic vol] 96.4 fL Normal 81-99 [facility] Comment on above: Performed By: #### L 100.0100, L501.2450, L500.4050 ####[facility] [address] [place], [address] Monocytes/100 WBC (Bld) 6.4 % Normal 0-10 [facility] Comment on above: Performed By: #### L 100.0100, L501.2450, L500.4050 ####[facility] [address] [place], [address] Neutrophils/100 WBC (Bld) 67.3 % Normal 47-70 [facility] Comment on above: Performed By: #### L 100.0100, L501.2450, L500.4050 ####[facility] [address] [place], [address] Nucleated RBC (Bld) [#/Vol] 0.2 10*3/uL Normal 0-5 [facility] Comment on above: Performed By: #### L 100.0100, L501.2450, L500.4050 ####[facility] [address] [place], [address] Platelet mean volume (Bld) [Entitic vol] 10.2 fL Normal 6.2-12.0 [facility] Comment on above: Performed By: #### L 100.0100, L501.2450, L500.4050 ####[facility] [address] [place], [address] Platelets (Bld) [#/Vol] 251 10*3/uL Normal 150-450 [facility] Comment on above: Performed By: #### L 100.0100, L501.2450, L500.4050 ####[facility] [address] [place], [address] RBC (Bld) [#/Vol] 2.20 10*6/uL Low 4.2-5.4 [facility] Comment on above: Performed By: #### L 100.0100, L501.2450, L500.4050 ####[facility] [address] [place], [address] RDW SD 47.8 fl High 35.1-43.9 [facility] Comment on above: Performed By: #### L 100.0100, L501.2450, L500.4050 ####[facility] [address] [place], [address] WBC (Bld) [#/Vol] 12.0 10*3/uL High 4.4-11.0 [facility] Comment on above: Performed By: #### L 100.0100, L501.2450, L500.4050 ####[facility] [address] [place], [address] Comprehensive Metabolic Prof [facility] 12-27-2024 Albumin [Mass/Vol] 3.4 g/dL Normal 3.4-4.8 [facility] Comment on above: Performed By: #### L 100.0100, L501.2450, L500.4050 ####[facility] [address] [place], [address] Albumin/Globulin [Mass ratio] 1.5 {ratio} Normal 0.9-2.4 [facility] Comment on above: Performed By: #### L 100.0100, L501.2450, L500.4050 ####[facility] [address] [place], [address] ALK PHOS 52 U/L Normal 35-104 [facility] Comment on above: Performed By: #### L 100.0100, L501.2450, L500.4050 ####[facility] [address] [place], [address] ALT [Catalytic activity/Vol] 20 U/L Normal <=34 [facility] Comment on above: Performed By: #### L 100.0100, L501.2450, L500.4050 ####[facility] [address] [place], [address] AST [Catalytic activity/Vol] 18 U/L Normal <=31 [facility] Comment on above: Performed By: #### L 100.0100, L501.2450, L500.4050 ####[facility] [address] [place], [address] Bilirubin [Mass/Vol] 0.23 mg/dL Normal 0.00-1.30 [facility] Comment on above: Performed By: #### L 100.0100, L501.2450, L500.4050 ####[facility] [address] [place], [address] BUN/CRE 34.2 RATIO High 10-20 [facility] Comment on above: Performed By: #### L 100.0100, L501.2450, L500.4050 ####[facility] [address] [place], [address] Calcium [Mass/Vol] 8.5 mg/dL Normal 7.6-11.0 [facility] Comment on above: Performed By: #### L 100.0100, L501.2450, L500.4050 ####[facility] [address] [place], [address] Chloride [Moles/Vol] 103 mmol/L Normal 98-108 [facility] Comment on above: Performed By: #### L 100.0100, L501.2450, L500.4050 ####[facility] [address] [place], [address] CO2 [Moles/Vol] 23.0 mmol/L Normal 21.0-32.0 [facility] Comment on above: Performed By: #### L 100.0100, L501.2450, L500.4050 ####[facility] [address] [place], [address] Creatinine [Mass/Vol] 0.68 mg/dL Low 0.70-1.20 [facility] Comment on above: Performed By: #### L 100.0100, L501.2450, L500.4050 ####[facility] [address] [place], [address] ECRCL 71.20 ml/min Normal 50-250 [facility] Comment on above: Performed By: #### L 100.0100, L501.2450, L500.4050 ####[facility] [address] [place], [address] GAP 10 Normal 5-15 [facility] Comment on above: Performed By: #### L 100.0100, L501.2450, L500.4050 ####[facility] [address] [place], [address] GFR/1.73 sq M.predicted among non-blacks MDRD (S/P/Bld) [Vol rate/Area] 91 mL/min/{1.73_m2} Normal >60 [facility] Comment on above: Result Comment: mL/m in/1.73m2 CKD-EPI Creatinine Equation (2020) Performed By: #### L 100.0100, L501.2450, L500.4050 ####[facility] [address] [place], [address] Globulin (S) [Mass/Vol] 2.2 g/dL Normal 2.2-4.2 [facility] Comment on above: Performed By: #### L 100.0100, L501.2450, L500.4050 ####[facility] [address] [place], [address] Glucose [Mass/Vol] 378 mg/dL High 70-99 [facility] Comment on above: Performed By: #### L 100.0100, L501.2450, L500.4050 ####[facility] [address] [place], [address] Potassium [Moles/Vol] 3.8 mmol/L Normal 3.3-5.1 [facility] Comment on above: Performed By: #### L 100.0100, L501.2450, L500.4050 ####[facility] [address] [place], [address] Sodium [Moles/Vol] 135 mmol/L Normal 133-145 [facility] Comment on above: Performed By: #### L 100.0100, L501.2450, L500.4050 ####[facility] [address] [place], [address] T PROT 5.6 g/dL Low 5.9-8.4 [facility] Comment on above: Performed By: #### L 100.0100, L501.2450, L500.4050 ####[facility] [address] [place], [address] Urea nitrogen [Mass/Vol] 23 mg/dL High 4-19 [facility] Comment on above: Performed By: #### L 100.0100, L501.2450, L500.4050 ####[facility] [address] [place], [address] Emergency Department Summary on 12-27-2024 Emergency Department Summary Normal [facility] H AND P Exam - Hospitaliston 12-27-2024 H&P Exam - Hospitalist Normal [facility] HH, Hemoglobin AND Hematocri ton 12-27-2024 Hematocrit (Bld) [Volume fraction] 24.2 % Low 37-47 [facility] Comment on above: Performed By: #### L 100.0600 ####[facility] [address] [place], [address] Hemoglobin (Bld) [Mass/Vol] 7.9 g/dL Low 12.0-15. 0 [facility] Comment on above: Performed By: #### L 100.0600 ####[facility] [address] [place], [address] Hematocrit (Bld) [Volume fraction] 25.4 % Low 37-47 [facility] Comment on above: Performed By: #### L 100.0600 ####[facility] [address] [place], [address] Hemoglobin (Bld) [Mass/Vol] 8.2 g/dL Low 12.0-15. 0 [facility] Comment on above: Performed By: #### L 100.0600 ####[facility] [address] [place], [address] Hemoglobin A1con 12-27-2024 HbA1c (Bld) [Mass fraction] 7.8 % High <=5.6 [facility] Comment on above: Result Comment: Norm al < 5.7 % Prediabetic 5.7 - 6.4 % Diabetic >or= 6.5 % Please note range changes. Performed By: #### L 501.4916 ####[facility] [address] [place], [place], [address] Hemoglobin A1c percentageOrd ered By: Shelia Campos on 12-27-2024 HbA1c (Bld) [Mass fraction] 7.8 % High <5.7 [facility] Ketones Test strip Ql (U)Ord ered By: Shashi Veronica on 12-27-2024 Ketones Ql (U) Negative Negative [facility] Lactic Acidon 12-27-2024 Lactate [Moles/Vol] 2.0 mmol/L Normal 0.0-2.0 [facility] Comment on above: Result Comment: Crit ical Result(s) Called AHAGGARTY at: 1809 by:MERYL??Results read back by same. Performed By: #### L 503.6008 ####[facility] [address] [place], [place], [address] Lactate [Moles/Vol] 2.6 mmol/L Invalid Interpretation Code 0.0-2.0 [facility] Comment on above: Order Comment: Y Result Comment: Crit ical Result(s) Called at: 1202 12/27/2024 by:JOSE ALBERTO??Results read back by same. Performed By: #### L 503.6008, M100.7900 ####[facility] [address] [place], [place], [address] Lipaseon 12-27-2024 Lipase [Catalytic activity/Vol] 25 U/L Normal 13-75 [facility] Comment on above: Result Comment: Lisy bender note:LIPASE revised reference range effective 22.New Lipase methodology. Expected to produce lower valuesthan the previous assay method.NEW Reference Range: 13 - 75 U/L Performed By: #### L 100.0100, L501.2450, L500.4050 ####[facility] [address] [place], [place], [id number] MR/CON.PCM.GIon 12-27-2024 MR/CON.PCM.GI Normal [facility] Mucus LM Ql (Urine sed)Order ed By: Shashi Veronica on 12-27-2024 Mucus Ql (Urine sed) RARE /hpf [facility] Nitrite Test strip Ql (U)Ord ered By: Shashi Veronica on 12-27-2024 Nitrite Ql (U) Negative Negative [facility] Partial Thromboplast Timeon 12-27-2024 aPTT Coag (Bld) [Time] 22.6 s Low 24.1-36.2 [facility] Comment on above: Performed By: #### L 300.4310, L300.3900, [facility], BTS ####[facility] [address] [place], [address] Protein Test strip Ql (U)Ord ered By: Shashi Veronica on 12-27-2024 Protein Ql (U) 15 mg/dl High Negative [facility] Prothrombin Time w/INRon INR Coag (PPP) [Relative time] 1.0 {INR} Normal [facility] Comment on above: Performed By: #### L 300.4310, L300.3900, [facility], BTS ####[facility] [address] [place], [address] PT Coag (PPP) [Time] 13.6 s Normal 11.7-14.9 [facility] Comment on above: Performed By: #### L 300.4310, L300.3900, [facility], BTS ####[facility] [address] [place], [address] Squamous epithelial cells de tection in urine sediment by light microscopyOrdered By: Shashi Veronica on 12-27-2024 Epithelial cells.squamous LM Ql (Urine sed) 5-10 SEEN /hpf 5-10 [facility] Stool Occult Blood iFOBon STOB Positive Normal [facility] Comment on above: Performed By: #### L 503.6005, M100.7900 ####[facility] [address] [place], [address] Stool gastrointestinal hemog lobin detection by immunologic methodOrdered By: Shashi Veronica on 12-27-2024 Lower GI hemoglobin IA Ql (Stl) Positive Abnormal [facility] Lower GI hemoglobin IA Ql (Stl) Positive Abnormal [facility] Type AND Screenon 12-27-2024 ABO and Rh group Nom (Bld) Blood group A Rh(D) positive Normal [facility] Comment on above: Order Comment: CMV N EG? NNumber of units to transfuse: 1Reason for Ordering Blood: AcuteAre the blood/blood products to be transfused? YIs the patient having/had surgery? NSNY Performed By: #### L 300.4310, L300.3900, [facility], BTS ####[facility] [address] [place], [address] Urinalysis, Completeon 12-27 BACTERIA 1+ /hpf Normal None Seen [facility] Comment on above: Order Comment: MONSE CTOR TO SPECIFY Performed By: #### L 400.0001 ####[facility] [address] [place], [address] EPI,SQUAMOUS 5-10 SEEN Normal 5-10 [facility] Comment on above: Order Comment: MONSE CTOR TO SPECIFY Performed By: #### L 400.0001 ####[facility] [address] [place], [address] Mucus Ql (Urine sed) RARE Normal [facility] Comment on above: Order Comment: MONSE CTOR TO SPECIFY Performed By: #### L 400.0001 ####[facility] [address] [place], [address] RBC 0-5 SEEN Normal 0-5 [facility] Comment on above: Order Comment: COLLE CTOR TO SPECIFY Performed By: #### L 400.0001 ####[facility] [address] [place], [place], [id number] WBC 5-10 SEEN Normal 0-5 [facility] Comment on above: Order Comment: COLLE CTOR TO SPECIFY Performed By: #### L 400.0001 ####[facility] [address] [place], [address] Urine clarityOrdered By: Caleb Veronica on 12-27-2024 Clarity (U) Sl. Cloudy Clear [facility] Urine color determinationOrd ered By: Shashi Veronica on 12-27-2024 Color (U) Yellow Yellow [facility] Urine cultureOrdered By: Caleb Veronica on 12-27-2024 Bacteria identified Cx Nom (U) Aerococcus urinae Abnormal [facility] Bacteria identified Cx Nom (U) Mixed Gram Pos & Gram Neg Org Abnormal [facility] Bacteria identified Cx Nom (U) Aerococcus urinae Abnormal [facility] Bacteria identified Cx Nom (U) Mixed Gram Pos & Gram Neg Org Abnormal [facility] Urine glucose detectionOrder ed By: Shashi Veronica on 12-27-2024 Glucose Ql (U) 1000 mg/dl High Normal [facility] Urine leukocyte esterase det ection by dipstickOrdered By: Shashi Veronica on 12-27-2024 Leukocyte esterase Test strip Ql (U) 100 /ul High Negative [facility] Urine pHOrdered By: Shashi Addison on 12-27-2024 pH (U) 6.0 [pH] 5.0 - 8.0 [facility] Urine sediment bacteria coun t by microscopy (number/high power field)Ordered By: Shashi Veronica on 12-27-2024 Bacteria LM.HPF (Urine sed) [#/Area] 1 /[HPF] None Seen [facility] Urine specific gravity measu rementOrdered By: Shashi Veronica on 12-27-2024 Specific gravity (U) [Rel density] 1.020 1.002-1.030 [facility] Urine urobilinogen measureme ntOrdered By: Shashi Veronica on 10-13-2025 Urobilinogen Ql (U) Normal mg/dl Normal [facility] White blood cell countOrdere d By: Shashi EdouardGilmargett on 12-27-2024 White blood cell count 5-10 SEEN /hpf 0-5 [facility] Gastroenterology Visit Repor ton 12-17-2024 Gastroenterology Visit Report Normal [facility] Urine Cultureon 12-08-2024 URC Normal [facility] Comment on above: Performed By: #### M 100.2200 ####[facility] [address] [place], [address] [facility] Telephone (INTMWS) KESHIA ROJAS ([id number]) 1950 F Date Time Provider Department 12/07/24 PAULO SCOTT INTWS During your visit today, we recorded the following information about you: Nicole Herrera LPN 12/07/2024 11:18 AM Signed Patient calling was in the office yesterday and did not get the letter for her employer from Dr Scott wrote for her. 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 Patient asking about what was written on piece of paper by PCP, (Methylated Folate 15 mg ) asking if that is what she wanted her to get? Patient having problems reading it. Please advise Nicole Herrera LPN 12/07/2024 4:07 PM Signed Patient calling back now wants to go back to work tomorrow. 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 Advised patient that she would get a call when letter is ready. Nicole Herrera LPN 12/08/2024 10:53 AM Signed Patient calling she is supposed to be at work today at noon and needs the letter. Printing a copy of the letter, to get PCP to sign. Nataly Krueger RN 12/08/2024 11:21 AM Signed Patient calls back and states that her boss read the summary of appointment. Patient is ok to come in today. Patient will be working for 3.5 hours today. 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 Can leave patient voice mail on [phone]. 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 Pt notified. Allergies As of Date: 12/07/2024 Noted Allergy Reaction ADHESIVE 02/12/2023 2 - Rash Comments: ECG patch made skin red and raw; needs hypoallergenic patches for ECG and other testing needing patches AGGRENOX (ASPIRIN-DIPYRIDAMOLE ) 05/27/2011 14 - Other: See Comments Comments: Headache BACTRIM (SULFAMETHOXAZOLE-TRI METH*03/20/2006 Comments: dizzy, redness, face flushed BETADINE (POVIDONE-IODINE) 11/04/2006 2 - Rash CETACAINE (BUTAMBEN-TETRACAINE- BE*09/11/2012 14 - Other: See Comments Comments: excessive [...] mandibular pain, lymphadenopathy, possible angio edema per [facility] ER note 04/24/2022 MECLIZINE 03/07/2006 7 - Swelling Comments: URINARY RETENTION,FACE FELT FUNNY METOPROLOL 04/24/2006 8 - GI Upset Comments: headache.itching.hive s. MYRBETRIQ (MIRABEGRON) 12/26/2014 14 - Other: See Comments Comments: elevated BP PREVACID (LANSOPRAZOLE) 03/07/2006 8 - GI Upset Comments: GAS,BURPING HEADACHE PRILOSEC (OMEPRAZOLE MAGNESIUM) 6 - Diarrhea TAPE (ADHESIVE TAPE (ROSINS)) 02/12/2023 2 - Rash Comments: Paper tape TIZANIDINE 03/24/2014 14 - Other: See Comments Comments: increased pain ZELNORM (TEGASEROD HYDROGEN RACHELL*03/07/2006 4 - Hives Date Reviewed: 12/06/2024 Reviewed by: Adalgisa Jim LPN - Fully Assessed Reason for Visit: Letter [264] Patient Question [9445] Prescriptions as of 12/08/2024 - Magnesium Glycinate (MAG GLYCINATE) 100 mg tab Take by mouth. - gabapentin (NEURONTIN) 100 mg capsule Take 3 capsules by mouth daily at bedtime for 180 days. - gabapentin (NEURONTIN) 100 mg capsule Take 3 capsules by mouth daily at bedtime for 14 days. - amLODIPine (NORVASC) 5 mg tablet Take [...] the site. Location: right lower back. - benzonatate (TESSALON PERLE) 100 mg capsule Take 1-2 capsules by mouth three times a day as needed for cough. - diclofenac (VOLTAREN) 1 % topical gel [...] 1 tablet by mouth once daily. - (more content not included)... Normal [facility] CNOVon 12-06-2024 CNOV Office Visit (INTMWS ) KESHIA ROJAS ([id number]) 1950 F Date Time Provider Department 12/06/24 10:20 AM PAULO SCOTT INTMWS During your visit today, we recorded the following information about you: Pulse Respiration Blood pressure Weight 77/minute 16/minute 138/82 92.6 kg Paulo Scott MD 12/07/2024 1:42 AM Signed Subjective HPI Keshia Rojas is a 74-year-old female, with a history of Sarmiento's esophagus, presenting for follow-up after an ER visit for dehydration and near-syncope. Keshia was evaluated in the ER yesterday for dehydration and near-syncope. She reports feeling real dehydrated and experiencing nausea and emesis after eating eggs before work. She did not lose consciousness but felt close to fainting. She attributes her dehydration to not having enough time to drink fluids at work, stating, you can't eat there, they don't give you time. She also mentions that she was unable to drink her usual Gatorlyte yesterday. She was given IV fluids in the ER, which she notes caused bruising and pain in her upper left arm. She also reports a sharp pain in her chest during the incident, which she attributes to her history of Sarmiento's esophagus. She denies any history of heart problems. Keshia also reports ongoing issues with her feet, stating, my feet are terrible anymore. She is currently wearing diabetic shoes and follows up with a energy risk management analyst for nail care. She also mentions swelling in her legs and feet, for which she wears embolism hose. She denies any issues with her lungs, stating, I've been doing the feet instead of going and getting my lungs taken care of. Keshia also reports stress related to her family situation. She mentions that her daughter is going through a divorce and has been dealing with an abusive ex-. She also reports that her has balance issues and has fallen multiple times, and causing stress for her and her family. 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 Charlton) Cataracts, both eyes Coronary atherosclerosis of unspecified type of vessel, [place] or graft minimal plaque on cath 08/06/2006 Diet-controlled diabetes mellitus ([facility]) 09/24/2024 DVT (deep venous thrombosis) ([facility]) 2010 Right leg OCTOBER 2009 NOT TREATED Dysmetabolic syndrome X Esophageal reflux Fibromyalgia better with Lyrica Floppy eyelid syndrome Hiatal hernia Large when seen on EGD 10/2010 at [facility] (Dr. 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 gabapentin (NEURONTIN) 100 mg capsule Take 3 capsules by mouth daily at bedtime for 180 days. amLODIPine (NORVASC) 5 mg tablet Take [...] off the site. Location: right lower back. benzonatate (TESSALON PERLE) 100 mg capsule Take 1-2 capsules by mouth three times a day as needed for cough. cyclobenzaprine (FLEXERIL) 5 mg tablet Take 1 [...] MM. DX: EDEMA 782.3, venous insuffiency 459.81 (more content not included)... Normal [facility] 12 Lead EKGon 12-05-2024 12 Lead EKG Normal [facility] Absolute lymphocyte countOrd ered By: Shanika Galicia on 12-05-2024 Lymphocytes Auto (Unsp spec) [#/Vol] 1.71 10*3/uL 0.83-4.51 [facility] Absolute neutrophil countOrd ered By: Shanika Galicia on 12-05-2024 Neutrophils (Bld) [#/Vol] 10.1 10*3/uL High 2.0-7.7 [facility] Anion gap in Serum or Plasma Ordered By: Shanika Galicia on 12-05-2024 Anion gap [Moles/Vol] 15 mmol/L 5-15 [facility] Automated lymphocyte count a s percentage of total leukocytesOrdered By: Shanika Galicia on 12-05-2024 Lymphocytes/100 WBC Auto (Unsp spec) 13.0 % Low 19-41 [facility] BUN/creatinine ratioOrdered By: Shanika Galicia on 12-05-2024 Urea nitrogen/Creatinine [Mass ratio] 17.3 mg/mg 10-20 [facility] Basic Metabolic Profile (BMP )on 12-05-2024 BUN/CRE 17.3 RATIO Normal 10-20 [facility] Comment on above: Performed By: #### L 500.2500, L100.0100, L501.4021 ####[facility] [address] [place], [address] Calcium [Mass/Vol] 9.6 mg/dL Normal 7.6-11.0 [facility] Comment on above: Performed By: #### L 500.2500, L100.0100, L501.4021 ####[facility] [address] [place], [address] Chloride [Moles/Vol] 99 mmol/L Normal 98-108 [facility] Comment on above: Performed By: #### L 500.2500, L100.0100, L501.4021 ####[facility] [address] [place], [address] CO2 [Moles/Vol] 21.8 mmol/L Normal 21.0-32.0 [facility] Comment on above: Performed By: #### L 500.2500, L100.0100, L501.4021 ####[facility] [address] [place], [address] Creatinine [Mass/Vol] 0.89 mg/dL Normal 0.70-1.20 [facility] Comment on above: Performed By: #### L 500.2500, L100.0100, L501.4021 ####[facility] [address] [place], [address] ECRCL 62.56 ml/min Normal 50-250 [facility] Comment on above: Performed By: #### L 500.2500, L100.0100, L501.4021 ####[facility] [address] [place], [address] GAP 15 Normal 5-15 [facility] Comment on above: Performed By: #### L 500.2500, L100.0100, L501.4021 ####[facility] [address] [place], [address] GFR/1.73 sq M.predicted among non-blacks MDRD (S/P/Bld) [Vol rate/Area] 68 mL/min/{1.73_m2} Normal >60 [facility] Comment on above: Result Comment: mL/m in/1.73m2 CKD-EPI Creatinine Equation (2020) Performed By: #### L 500.2500, L100.0100, L501.4021 ####[facility] [address] [place], [address] Glucose [Mass/Vol] 258 mg/dL High 70-99 [facility] Comment on above: Performed By: #### L 500.2500, L100.0100, L501.4021 ####[facility] [address] [place], [address] Potassium [Moles/Vol] 4.3 mmol/L Normal 3.3-5.1 [facility] Comment on above: Result Comment: Hemo lysis present, Results??could be affected.?? Performed By: #### L 500.2500, L100.0100, L501.4021 ####[facility] [address] [place], [address] Sodium [Moles/Vol] 136 mmol/L Normal 133-145 [facility] Comment on above: Performed By: #### L 500.2500, L100.0100, L501.4021 ####[facility] [address] [place], [address] Urea nitrogen [Mass/Vol] 15 mg/dL Normal 4-19 [facility] Comment on above: Performed By: #### L 500.2500, L100.0100, L501.4021 ####[facility] [address] [place], [address] Basophil percentageOrdered B y: Shanika Galicia on 12-05-2024 Basophils/100 WBC (Bld) 0.8 % 0-1 [facility] Bilirubin Test strip Ql (U)O rdered By: Shanika Galicia on 12-05-2024 Bilirubin Ql (U) Negative Negative [facility] CBC W/Diff, Automatedon 11-16 Absolute Lymph 1.71 X10 3/uL Normal 0.83-4.51 [facility] Comment on above: Performed By: #### L 500.2500, L100.0100, L501.4021 ####[facility] [address] [place], [address] Absolute Neut 10.1 X10 3/uL High 2.0-7.7 [facility] Comment on above: Performed By: #### L 500.2500, L100.0100, L501.4021 ####[facility] [address] [place], [address] Basophils/100 WBC (Bld) 0.8 % Normal 0-1 [facility] Comment on above: Performed By: #### L 500.2500, L100.0100, L501.4021 ####[facility] [address] [place], [address] Eosinophils/100 WBC (Bld) 1.4 % Normal 0-5 [facility] Comment on above: Performed By: #### L 500.2500, L100.0100, L501.4021 ####[facility] [address] [place], [address] Erythrocyte distribution width (RBC) [Ratio] 13.7 % Normal 11.6-14.6 [facility] Comment on above: Performed By: #### L 500.2500, L100.0100, L501.4021 ####[facility] [address] [place], [address] Hematocrit (Bld) [Volume fraction] 43.9 % Normal 37-47 [facility] Comment on above: Performed By: #### L 500.2500, L100.0100, L501.4021 ####[facility] [address] [place], [address] Hemoglobin (Bld) [Mass/Vol] 14.5 g/dL Normal 12.0-15. 0 [facility] Comment on above: Performed By: #### L 500.2500, L100.0100, L501.4021 ####[facility] [address] [place], [address] IG% 0.400 Normal 0.0-0.9 [facility] Comment on above: Result Comment: IG% - Immature Granulocytes (promyelocytes, myelocytes andmetamyelocytes) > 1% indicates that a LEFT SHIFT is Present. Performed By: #### L 500.2500, L100.0100, L501.4021 ####[facility] [address] [place], [address] Lymphocytes/100 WBC (Bld) 13.0 % Low 19-41 [facility] Comment on above: Performed By: #### L 500.2500, L100.0100, L501.4021 ####[facility] [address] [place], [address] MCH (RBC) [Entitic mass] 31.0 pg Normal 27.0-32.0 [facility] Comment on above: Performed By: #### L 500.2500, L100.0100, L501.4021 ####[facility] [address] [place], [address] MCHC (RBC) [Mass/Vol] 33.0 g/dL Normal 32-36 [facility] Comment on above: Performed By: #### L 500.2500, L100.0100, L501.4021 ####[facility] [address] [place], [address] MCV (RBC) [Entitic vol] 94.0 fL Normal 81-99 [facility] Comment on above: Performed By: #### L 500.2500, L100.0100, L501.4021 ####[facility] [address] [place], [address] Monocytes/100 WBC (Bld) 8.0 % Normal 0-10 [facility] Comment on above: Performed By: #### L 500.2500, L100.0100, L501.4021 ####[facility] [address] [place], [address] Neutrophils/100 WBC (Bld) 76.4 % High 47-70 [facility] Comment on above: Performed By: #### L 500.2500, L100.0100, L501.4021 ####[facility] [address] [place], [address] Nucleated RBC (Bld) [#/Vol] 0 10*3/uL Normal 0-5 [facility] Comment on above: Performed By: #### L 500.2500, L100.0100, L501.4021 ####[facility] [address] [place], [address] Platelet mean volume (Bld) [Entitic vol] 10.6 fL Normal 6.2-12.0 [facility] Comment on above: Performed By: #### L 500.2500, L100.0100, L501.4021 ####[facility] [address] [place], [address] Platelets (Bld) [#/Vol] 276 10*3/uL Normal 150-450 [facility] Comment on above: Performed By: #### L 500.2500, L100.0100, L501.4021 ####[facility] [address] [place], [address] RBC (Bld) [#/Vol] 4.67 10*6/uL Normal 4.2-5.4 [facility] Comment on above: Performed By: #### L 500.2500, L100.0100, L501.4021 ####[facility] [address] [place], [address] RDW SD 47.5 fl High 35.1-43.9 [facility] Comment on above: Performed By: #### L 500.2500, L100.0100, L501.4021 ####[facility] [address] [place], [address] WBC (Bld) [#/Vol] 13.2 10*3/uL High 4.4-11.0 [facility] Comment on above: Performed By: #### L 500.2500, L100.0100, L501.4021 ####[facility] [address] [place], [address] Carbon dioxide, total [Moles /volume] in Central venous bloodOrdered By: Shanika Galicia on 12-05-2024 CO2 [Moles/Vol] 21.8 mmol/L 21.0-32.0 [facility] Chest PA and Lateralon 12-05 Chest PA and Lateral Normal [facility] Chloride assayOrdered By: Carlos Galicia on 12-05-2024 Chloride [Moles/Vol] 99 mmol/L 98-108 [facility] Electrocardiogram reportOrde red By: Julian Paul on 12-05-2024 EKG study [facility] [address] [place] [address] 12 Lead EKG 12/05/24 1319 MR#: [id number] Acct: [id number] Name: KESHIA ROJAS Rep #:[id number] 10 : 1950 74 From: Julian Paul MD Attending Dr: Status: DEP E R Ordering Dr: Shanika Galicia MD Date: Location: ED Sex: F C Admitted: Test Reason : GENERAL/DIZZINESS Blood Pressure : */* mmHG Vent. Rate : 82 BPM Atrial Rate : 82 BPM P-R Int : 198 ms QRS Dur : 50 ms QT Int : 370 ms P-R-T Axes : 52 -87 76 degrees QTcB Int : 432 ms Critical Test Result: STEMI Sinus rhythm with Fusion complexes Left axis deviation Low voltage QRS Septal infarct Possible Lateral infarct Inferior injury pattern Confirmed by BEVERLY VARGAS, JULIAN ([id number]), research editor ASHLEY HOUSE ([id number]) on 12/06/2024 7:57:25 AM Referred By: Confirmed By: JULIAN PAUL MD 12/06/24 0757 Date _ Julian Paul MD CC: Dr. Shanika Galicia MD; Dr. Paulo Scott MD ~ Signed [facility] Other Phone: Emergency Department Summary on 12-05-2024 Emergency Department Summary Normal [facility] Eosinophil percentageOrdered By: Shanika Galicia on 12-05-2024 Eosinophils/100 WBC (Bld) 1.4 % 0-5 [facility] Erythrocyte distribution wid th ratioOrdered By: Shanika Galicia on 12-05-2024 Erythrocyte distribution width (RBC) [Ratio] 13.7 % 11.6-14.6 [facility] Erythrocyte distribution wid th standard deviationOrdered By: Shanika Galicia on 12-05-2024 Erythrocyte distribution width (RBC) [Ratio] 47.5 fl High 35.1-43.9 [facility] Glomerular filtration rate ( GFR) estimation/1.73 sq m using serum, plasma, or whole bOrdered By: Shanika Galicia on 12-05-2024 GFR/1.73 sq M.predicted among non-blacks MDRD (S/P/Bld) [Vol rate/Area] 68 mL/min/{1.73_m2} >60 [facility] Comment on above: mL/min/1.73m2 CKD-EP I Creatinine Equation (2020) Hematocrit Auto (Bld) [Volum e fraction]Ordered By: Shanika Galicia on 12-05-2024 Hematocrit (Bld) [Volume fraction] 43.9 % 37-47 [facility] Hemoglobin measurementOrdere d By: Shanika Galicia on 12-05-2024 Hemoglobin (Bld) [Mass/Vol] 14.5 g/dL 12.0-15. 0 [facility] Immature granulocytes/100 WB C Auto (Bld)Ordered By: Shanika Galicia on 12-05-2024 Immature granulocytes/100 WBC (Bld) 0.400 % 0.0-0.9 [facility] Comment on above: IG% - Immature Granu locytes (promyelocytes, myelocytes and metamyelocytes) > 1% indicates that a LEFT SHIFT is Present. Ketones Test strip Ql (U)Ord ered By: Shanika Galicia on 12-05-2024 Ketones Ql (U) Negative Negative [facility] L501.4021on 12-05-2024 Trop T High Sen 23 ng/L High <=14 [facility] Comment on above: Performed By: #### L 500.2500, L100.0100, L501.4021 ####[facility] [address] [place], [address] MCV (mean corpuscular volume ) determinationOrdered By: Shanika Galicia on 12-05-2024 MCV (RBC) [Entitic vol] 94.0 fL 81-99 [facility] Mean corpuscular hemoglobin (MCH) determinationOrdered By: Shanika Galicia on 12-05-2024 MCH (RBC) [Entitic mass] 31.0 pg 27.0-32.0 [facility] Mean corpuscular hemoglobin concentration (MCHC) determinationOrdered By: Shanika Galicia on 12-05-2024 MCHC (RBC) [Mass/Vol] 33.0 g/dL 32-36 [facility] Mean platelet volume determi nationOrdered By: Shanika Galicia on 12-05-2024 Platelet mean volume (Bld) [Entitic vol] 10.6 fL 6.2-12.0 [facility] Microscopic analysis of urin e for red blood cells (RBC)Ordered By: Shanika Galicia on 12-05-2024 Microscopic analysis of urine for red blood cells (RBC) 0 SEEN /hpf 0-5 [facility] Monocyte percentageOrdered B y: Shanika Galicia on 12-05-2024 Monocytes/100 WBC (Bld) 8.0 % 0-10 [facility] Mucus LM Ql (Urine sed)Order ed By: Shanika Galicia on 12-05-2024 Mucus Ql (Urine sed) 0 SEEN /hpf [facility] Neutrophil percentageOrdered By: Shanika Mortoner on 12-05-2024 Neutrophils/100 WBC (Bld) 76.4 % High 47-70 [facility] Nitrite Test strip Ql (U)Ord ered By: Shanika Mortoner on 12-05-2024 Nitrite Ql (U) Negative Negative [facility] Nucleated red blood cell per centageOrdered By: Shanika Mortoner on 12-05-2024 Nucleated RBC/100 WBC (Bld) [Ratio] 0 % 0-5 [facility] Platelet countOrdered By: Carlos Mortoner on 12-05-2024 Platelets (Bld) [#/Vol] 276 10*3/uL 150-450 [facility] Potassium measurement (mass/ volume)Ordered By: Shanika Mortoner on 12-05-2024 Potassium (Unsp spec) [Mass/Vol] 4.3 mmol/L 3.3-5.1 [facility] Comment on above: Hemolysis present, R esults could be affected. Protein Test strip Ql (U)Ord ered By: Shanika Mortoner on 12-05-2024 Protein Ql (U) Negative Negative [facility] RBC Auto (Bld) [#/Vol]Ordere d By: Shanika Mortoner on 12-05-2024 RBC (Bld) [#/Vol] 4.67 10*6/uL 4.2-5.4 [facility] Serum creatinine measurement (mass/volume)Ordered By: Shanika Mortoner on 12-05-2024 Creatinine [Mass/Vol] 0.89 mg/dL 0.70-1.20 [facility] Serum glucose measurement (m ass/volume)Ordered By: Shanika Frida on 12-05-2024 Glucose [Mass/Vol] 258 mg/dL High 70-99 [facility] Serum or plasma calcium jojo urement (mass/volume)Ordered By: Shanika Galicia on 12-05-2024 Calcium [Mass/Vol] 9.6 mg/dL 7.6-11.0 [facility] Serum or plasma urea nitroge n measurement (mass/volume)Ordered By: Shanika Galicia on 12-05-2024 Urea nitrogen [Mass/Vol] 15 mg/dL 4-19 [facility] Sodium levelOrdered By: Sohail Galicia on 12-05-2024 Sodium [Moles/Vol] 136 mmol/L 133-145 [facility] Squamous epithelial cells de tection in urine sediment by light microscopyOrdered By: Shanika Galicia on 12-05-2024 Epithelial cells.squamous LM Ql (Urine sed) 0-5 SEEN /hpf 5-10 [facility] Troponin T HS 2 HRon 025 Trop T High Sen 17 ng/L High <=14 [facility] Comment on above: Performed By: #### L 499.0042 ####[facility] [address] [facility] [id number] Troponin T.cardiac [Mass/vol ume] in Serum or Plasma by High sensitivity methodOrdered By: Shanika Galicia on 12-05-2024 Troponin T.cardiac High sensitivity method [Mass/Vol] 17 ng/L High <14 [facility] Troponin T.cardiac High sensitivity method [Mass/Vol] 23 ng/L High <14 [facility] Urinalysis, Completeon 12-05 BACTERIA 1+ /hpf Normal None Seen [facility] Comment on above: Order Comment: CLEAN CATCH Performed By: #### L 400.0001 ####[facility] [address] [place], [address] EPI,SQUAMOUS 0-5 SEEN Normal 5-10 [facility] Comment on above: Order Comment: CLEAN CATCH Performed By: #### L 400.0001 ####[facility] [address] [place], [address] WBC 0-5 SEEN Normal 0-5 [facility] Comment on above: Order Comment: CLEAN CATCH Performed By: #### L 400.0001 ####[facility] [address] [place], [address] Mucus Ql (Urine sed) 0 SEEN Normal [facility] Comment on above: Order Comment: CLEAN CATCH Performed By: #### L 400.0001 ####[facility] [address] [place], [address] RBC 0 SEEN Normal 0-5 [facility] Comment on above: Order Comment: CLEAN CATCH Performed By: #### L 400.0001 ####[facility] [address] [place], [place], [address] Urine clarityOrdered By: Morenita Galicia on 12-05-2024 Clarity (U) Clear Clear [facility] Urine color determinationOrd ered By: Shanika Galicia on 12-05-2024 Color (U) Yellow Yellow [facility] Urine cultureOrdered By: Morenita Galicia on 12-05-2024 Bacteria identified Cx Nom (U) Escherichia coli Abnormal [facility] Bacteria identified Cx Nom (U) Escherichia coli Abnormal [facility] Urine glucose detectionOrder ed By: Shanika Galicia on 12-05-2024 Glucose Ql (U) 1000 mg/dl High Normal [facility] Urine leukocyte esterase det ection by dipstickOrdered By: Shanika Galicia on 12-05-2024 Leukocyte esterase Test strip Ql (U) 25 /ul High Negative [facility] Urine pHOrdered By: Shanika torres on 12-05-2024 pH (U) 7.0 [pH] 5.0 - 8.0 [facility] Urine sediment bacteria coun t by microscopy (number/high power field)Ordered By: Shanika Galicia on 12-05-2024 Bacteria LM.HPF (Urine sed) [#/Area] 1 /[HPF] None Seen [facility] Urine specific gravity measu rementOrdered By: Shanika Galicia on 12-05-2024 Specific gravity (U) [Rel density] 1.010 1.002-1.030 [facility] Urine urobilinogen measureme ntOrdered By: Shanika Galicia on 12-05-2024 Urobilinogen Ql (U) Normal mg/dl Normal [facility] White blood cell (WBC) count Ordered By: Shanika Galicia on 12-05-2024 WBC (Bld) [#/Vol] 13.2 10*3/uL High 4.4-11.0 [facility] White blood cell countOrdere d By: Shanika Galicia on 12-05-2024 White blood cell count 0-5 SEEN /hpf 0-5 [facility] Cardiology Visit Reporton Cardiology Visit Report Normal [facility] 25(OH)D3 SerPl-mCncon 2024 25-hydroxyvitamin D3 [Mass/Vol] 52.7 ng/mL Normal 31.0-80.0 [facility] Comment on above: Order Comment: Speci men Type: BLOOD SPECIMEN Ordering Facility: [facility] Address: [address] [place] [address] Result Comment: Clas sification of 25 [place] Vitamin D status: Deficiency/Insufficiency: < or = 30 ng/ml. Sufficiency/Optimal Levels: 31-80 ng/mL Toxicity: > 100 ng/mL. Test performed by chemiluminescent immunoassay. Performed By: #### 3 016-3, 34894-2, LIPNF #### [facility] CLIA [id number] [address] [place] [address] [place] CBC W Auto Differential pane l (Bld)on 09-24-2024 Basophils (Bld) [#/Vol] 0.07 10*3/uL [facility] Basophils/100 WBC (Bld) 0.6 % [facility] Differential cell count method Nom (Bld) Auto [facility] Eosinophils (Bld) [#/Vol] 0.05 10*3/uL [facility] Eosinophils/100 WBC (Bld) 0.4 % [facility] Erythrocyte distribution width (RBC) [Ratio] 13.4 % 11.5 - 15.0 % [facility] Hematocrit (Bld) [Volume fraction] 43.7 % 36.0 - 46.0 % [facility] Hemoglobin (Bld) [Mass/Vol] 14.4 g/dL 11.5 - 15.5 g/dL [facility] Immature granulocytes (Bld) [#/Vol] 0.05 10*3/[facility] Immature granulocytes/100 WBC (Bld) 0.4 % [facility] Interpretation and review of laboratory results Abnormal [facility] Lymphocytes (Bld) [#/Vol] 1.75 10*3/uL [facility] Lymphocytes/100 WBC (Bld) 14.5 % [facility] MCH (RBC) [Entitic mass] 31.4 pg 26. 0 - 34.0 pg [facility] MCHC (RBC) [Mass/Vol] 33 g/dL 30.5 - 36.0 g/dL [facility] MCV (RBC) [Entitic vol] 95.2 fL 80.0 - 100.0 fL [facility] Monocytes (Bld) [#/Vol] 0.73 10*3/uL [facility] Monocytes/100 WBC (Bld) 6.1 % [facility] Neutrophils (Bld) [#/Vol] 9.4 10*3/uL High [facility] Neutrophils/100 WBC (Bld) 78 % [facility] Nucleated RBC (Bld) [#/Vol] [facility] Nucleated RBC/100 WBC (Bld) [Ratio] 0 % /100 WBC [facility] Platelet mean volume (Bld) [Entitic vol] 10.2 fL 9.0 - 12.7 fL [facility] Platelets (Bld) [#/Vol] 373 10*3/uL [facility] RBC (Bld) [#/Vol] 4.59 10*6/uL 3.90 - 5.2 0 m/uL [facility] WBC (Bld) [#/Vol] 12.05 10*3/uL High [facility] Basophils (Bld) [#/Vol] 0.07 10*3/uL Normal <0.11 [facility] Comment on above: Order Comment: Speci men Type: BLOOD SPECIMEN Ordering Facility: [facility] Address: [address] [place] [address] Performed By: #### 3 016-3, 48161-1, LIPNF #### [facility] CLIA [id number] [address] [id number] [address] [place] Basophils/100 WBC (Bld) 0.6 % Normal C [facility] Comment on above: Order Comment: Speci men Type: BLOOD SPECIMEN Ordering Facility: [facility] Address: [address] [place] [address] Performed By: #### 3 016-3, 71794-5, LIPNF #### [facility] CLIA [id number] [address] [place] [address] [place] Differential cell count method Nom (Bld) Auto Normal [facility] Comment on above: Order Comment: Speci men Type: BLOOD SPECIMEN Ordering Facility: [facility] Address: [address] [place] [address] Performed By: #### 3 016-3, , LIPNF #### [facility] CLIA [id number] [address] [place] [address] [place] Eosinophils (Bld) [#/Vol] 0.05 10*3/uL Normal <0.46 [facility] Comment on above: Order Comment: Speci men Type: BLOOD SPECIMEN Ordering Facility: [facility] Address: [address] [place] [address] Performed By: #### 3 016-3, , LIPNF #### [facility] CLIA [id number] [address] [place] [address] [place] Eosinophils/100 WBC (Bld) 0.4 % Normal [facility] Comment on above: Order Comment: Speci men Type: BLOOD SPECIMEN Ordering Facility: [facility] Address: [address] [place] [address] Performed By: #### 3 016-3, , LIPNF #### [facility] CLIA [id number] [address] [place] [address] [place] Erythrocyte distribution width (RBC) [Ratio] 13.4 % Normal 11.5-15.0 [facility] Comment on above: Order Comment: Speci men Type: BLOOD SPECIMEN Ordering Facility: [facility] Address: [address] [place] [address] Performed By: #### 3 016-3, 92061-9, LIPNF #### [facility] CLIA [id number] [address] [place] [address] [place] Hematocrit (Bld) [Volume fraction] 43.7 % Normal 36.0-46.0 [facility] Comment on above: Order Comment: Speci men Type: BLOOD SPECIMEN Ordering Facility: [facility] Address: [address] [place] [address] Performed By: #### 3 016-3, 80277-6, LIPNF #### [facility] CLIA [id number] [address] [place] [address] [place] Hemoglobin (Bld) [Mass/Vol] 14.4 g/dL Normal 11.5-15. 5 [facility] Comment on above: Order Comment: Speci men Type: BLOOD SPECIMEN Ordering Facility: [facility] Address: [address] [place] [address] Performed By: #### 3 016-3, 32276-7, LIPNF #### [facility] CLIA [id number] [address] [place] [address] [place] Immature granulocytes (Bld) [#/Vol] 0.05 10*3/uL Normal <0.10 [facility] Comment on above: Order Comment: Speci men Type: BLOOD SPECIMEN Ordering Facility: [facility] Address: [address] [place] [address] Performed By: #### 3 016-3, 43793-4, LIPNF #### [facility] [facility] CLIA [id number] [address] [place] [address] [place] Immature granulocytes/100 WBC (Bld) 0.4 % Normal [facility] Comment on above: Order Comment: Speci men Type: BLOOD SPECIMEN Ordering Facility: [facility] Address: [address] [place] [address] Performed By: #### 3 016-3, 42161-4, LIPNF #### [facility] CLIA [id number] [address] [place] [address] [place] Lymphocytes (Bld) [#/Vol] 1.75 10*3/uL Normal 1.00-4.0 0 [facility] Comment on above: Order Comment: Speci men Type: BLOOD SPECIMEN Ordering Facility: [facility] Address: [address] [place] [address] Performed By: #### 3 016-3, 68909-2, LIPNF #### [facility] CLIA [id number] [address] [place] [address] [place] Lymphocytes/100 WBC (Bld) 14.5 % Normal [facility] Comment on above: Order Comment: Speci men Type: BLOOD SPECIMEN Ordering Facility: [facility] Address: [address] [place] [address] Performed By: #### 3 016-3, 64436-6, LIPNF #### [facility] CLIA [id number] [address] [place] [address] [place] MCH (RBC) [Entitic mass] 31.4 pg Normal 26.0-34.0 [facility] Comment on above: Order Comment: Speci men Type: BLOOD SPECIMEN Ordering Facility: [facility] Address: [address] [place] [address] Performed By: #### 3 016-3, , LIPNF #### [facility] CLIA [id number] [address] [place] [address] [place] MCHC (RBC) [Mass/Vol] 33.0 g/dL Normal 30.5-36.0 [facility] Comment on above: Order Comment: Speci men Type: BLOOD SPECIMEN Ordering Facility: [facility] Address: [address] [place] [address] Performed By: #### 3 016-3, 35381-6, LIPNF #### [facility] CLIA [id number] [address] [place] [address] [place] MCV (RBC) [Entitic vol] 95.2 fL Normal 80.0-100.0 [facility] Comment on above: Order Comment: Speci men Type: BLOOD SPECIMEN Ordering Facility: [facility] Address: [address] [place] [address] Performed By: #### 3 016-3, 63202-2, LIPNF #### [facility] CLIA [id number] [address] [place] [address] [place] Monocytes (Bld) [#/Vol] 0.73 10*3/uL Normal <0.87 [facility] Comment on above: Order Comment: Speci men Type: BLOOD SPECIMEN Ordering Facility: [facility] Address: [address] [place] [address] Performed By: #### 3 016-3, 67330-3, LIPNF #### [facility] CLIA [id number] [address] [place] [address] [place] Monocytes/100 WBC (Bld) 6.1 % Normal [facility] Comment on above: Order Comment: Speci men Type: BLOOD SPECIMEN Ordering Facility: [facility] Address: [address] [place] [address] Performed By: #### 3 016-3, , LIPNF #### [facility] CLIA [id number] [address] [place] [address] [place] Neutrophils (Bld) [#/Vol] 9.40 10*3/uL High 1.45-7.5 0 [facility] Comment on above: Order Comment: Speci men Type: BLOOD SPECIMEN Ordering Facility: [facility] Address: [address] [place] [address] Performed By: #### 3 016-3, 21657-4, LIPNF #### [facility] CLIA [id number] [address] [place] [address] [place] Neutrophils/100 WBC (Bld) 78.0 % Normal [facility] Comment on above: Order Comment: Speci men Type: BLOOD SPECIMEN Ordering Facility: [facility] Address: [address] [place] [address] Performed By: #### 3 016-3, 90619-8, LIPNF #### [facility] CLIA [id number] [address] [place] [address] [place] Nucleated RBC (Bld) [#/Vol] 10*3/uL Normal <0.01 [facility] Comment on above: Order Comment: Speci men Type: BLOOD SPECIMEN Ordering Facility: [facility] Address: [address] [place] [address] Performed By: #### 3 016-3, 72869-3, LIPNF #### [facility] CLIA [id number] [address] [place] [address] [place] Nucleated RBC/100 WBC (Bld) [Ratio] 0.0 /100 WBC Normal [facility] Comment on above: Order Comment: Speci men Type: BLOOD SPECIMEN Ordering Facility: [facility] Address: [address] [place] [address] Performed By: #### 3 016-3, 41342-0, LIPNF #### [facility] CLIA [id number] [address] [place] [address] [place] Platelet mean volume (Bld) [Entitic vol] 10.2 fL Normal 9.0-12.7 [facility] Comment on above: Order Comment: Speci men Type: BLOOD SPECIMEN Ordering Facility: [facility] Address: [address] [place] [address] Performed By: #### 3 016-3, 05918-8, LIPNF #### [facility] CLIA [id number] [address] [place] [address] [place] Platelets (Bld) [#/Vol] 373 10*3/uL Normal 150-400 [facility] Comment on above: Order Comment: Speci men Type: BLOOD SPECIMEN Ordering Facility: [facility] Address: [address] [place] [address] Performed By: #### 3 016-3, 91556-1, LIPNF #### [facility] CLIA [id number] [address] [place] [address] [place] RBC (Bld) [#/Vol] 4.59 10*6/uL Normal 3.90-5.20 [facility] Comment on above: Order Comment: Speci men Type: BLOOD SPECIMEN Ordering Facility: [facility] Address: [address] [place] [address] Performed By: #### 3 016-3, 33511-6, LIPNF #### [facility] CLIA [id number] [address] [place] [address] [place] WBC (Bld) [#/Vol] 12.05 10*3/uL High 3.70-11.00 [facility] Comment on above: Order Comment: Speci men Type: BLOOD SPECIMEN Ordering Facility: [facility] Address: [address] [place] [address] Performed By: #### 3 016-3, 36959-3, LIPNF #### [facility] CLIA [id number] [address] [place] [address] [place] CNOVon 09-24-2024 CNOV Office Visit (INTMWS ) KESHIA ROJAS ([id number]) 1950 F Date Time Provider Department 09/24/24 10:40 AM NORMAN GARCIA INTMWS During your visit today, we recorded the following information about you: Pulse Respiration Blood pressure Weight 77/minute 16/minute 136/78 93 kg Norman Garcia APRN.CNP 09/24/2024 12:35 PM Signed SUBJECTIVE Keshia Rojas [...] soreness. She is scheduled to see a energy risk management analyst on November 12 for further evaluation. Keshia has been experiencing difficulties with her mail-order thyroid medication, noting delays in delivery. 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 Recording using Roundrate software for draft documentation of the visit was discussed with the patient/authorized fuels sales representative; all questions welcomed and answered. Patient/authorized fuels sales representative agreed to proceed Her medications were [...] HEAD ACHE (more content not included)... Normal [facility] Comprehensive metabolic 2000 panelon 09-24-2024 Albumin [Mass/Vol] 4.0 g/dL Normal 3.9-4.9 [facility] Comment on above: Order Comment: Speci men Type: BLOOD SPECIMEN Ordering Facility: [facility] Address: [address] [place] [address] Performed By: #### 3 016-3, 89508-2, LIPNF #### [facility] CLIA [id number] [address] [place] [address] [place] ALP [Catalytic activity/Vol] 71 U/L Normal 34-123 [facility] Comment on above: Order Comment: Speci men Type: BLOOD SPECIMEN Ordering Facility: [facility] Address: [address] [place] [address] Performed By: #### 3 016-3, 28083-1, LIPNF #### [facility] CLIA [id number] [address] [place] [address] [place] ALT [Catalytic activity/Vol] 32 U/L Normal 7-38 [facility] Comment on above: Order Comment: Speci men Type: BLOOD SPECIMEN Ordering Facility: [facility] Address: [address] [place] [address] Performed By: #### 3 016-3, 69196-3, LIPNF #### [facility] CLIA [id number] [address] [place] [address] [place] Anion gap [Moles/Vol] 12 mmol/L Normal 8-15 [facility] Comment on above: Order Comment: Speci men Type: BLOOD SPECIMEN Ordering Facility: [facility] Address: [address] [place] [address] Performed By: #### 3 016-3, 18783-1, LIPNF #### [facility] CLIA [id number] [address] [place] [address] [place] AST [Catalytic activity/Vol] 28 U/L Normal 13-35 [facility] Comment on above: Order Comment: Speci men Type: BLOOD SPECIMEN Ordering Facility: [facility] Address: [address] [place] [address] Performed By: #### 3 016-3, , LIPNF #### [facility] CLIA [id number] [address] [place] [address] [place] Bilirubin [Mass/Vol] 0.4 mg/dL Normal 0.2-1.3 [facility] Comment on above: Order Comment: Speci men Type: BLOOD SPECIMEN Ordering Facility: [facility] Address: [address] [place] [address] Performed By: #### 3 016-3, , LIPNF #### [facility] CLIA [id number] [address] [place] [address] [place] Calcium [Mass/Vol] 10.1 mg/dL Normal 8.5-10.2 [facility] Comment on above: Order Comment: Speci men Type: BLOOD SPECIMEN Ordering Facility: [facility] Address: [address] [place] [address] Performed By: #### 3 016-3, , LIPNF #### [facility] CLIA [id number] [address] [place], [place] [address] [place] Chloride [Moles/Vol] 104 mmol/L Normal 98-107 [facility] Comment on above: Order Comment: Speci men Type: BLOOD SPECIMEN Ordering Facility: [facility] Address: [address] [place] [address] Performed By: #### 3 016-3, , LIPNF #### [facility] CLIA [id number] [address] [place] [address] [place] CO2 [Moles/Vol] 23 mmol/L Normal 22-30 [facility] Comment on above: Order Comment: Speci men Type: BLOOD SPECIMEN Ordering Facility: [facility] Address: [address] [place] [address] Performed By: #### 3 016-3, 61978-9, LIPNF #### [facility] CLIA [id number] [address] [place] [address] [place] Creatinine [Mass/Vol] 0.69 mg/dL Normal 0.58-0.96 [facility] Comment on above: Order Comment: Speci men Type: BLOOD SPECIMEN Ordering Facility: [facility] Address: [address] [place] [address] Performed By: #### 3 016-3, 33080-2, LIPNF #### [facility] CLIA [id number] [address] [place] [address] [place] Creatinine and Glomerular filtration rate.predicted panel (S/P/Bld) 91 mL/min/1.73m??? Normal >=60 [facility] Comment on above: Order Comment: Epi lind Type: BLOOD SPECIMEN Ordering Facility: [facility] Address: [address] [place] [address] Result Comment: Savana mated Glomerular Filtration Rate [...] actual GFR. Performed By: #### 3 016-3, 91150-3, LIPNF #### [facility] CLIA [id number] [address] [place] [address] [place] Glucose [Mass/Vol] 151 mg/dL High 74-99 [facility] Comment on above: Order Comment: Speci men Type: BLOOD SPECIMEN Ordering Facility: [facility] Address: [address] [place] [address] Result Comment: The [place] Diabetes Association (ADA) provides guidance for cutoff [...] Standards of Medical Care in Diabetes 2016, [place] [employer]. Diabetes Care. 2016.39(Suppl 1). Performed By: #### 3 016-3, 13206-8, LIPNF #### [facility] CLIA [id number] [address] [place] [address] [place] Potassium [Moles/Vol] 4.5 mmol/L Normal 3.7-5.1 [facility] Comment on above: Order Comment: Speci men Type: BLOOD SPECIMEN Ordering Facility: [facility] Address: [address] [place] [address] Performed By: #### 3 016-3, 45091-7, LIPNF #### [facility] CLIA [id number] [address] [place] [address] [place] Protein [Mass/Vol] 7.7 g/dL Normal 6.3-8.0 [facility] Comment on above: Order Comment: Speci men Type: BLOOD SPECIMEN Ordering Facility: [facility] Address: [address] [place] [address] Performed By: #### 3 016-3, 09113-7, LIPNF #### [facility] CLIA [id number] [address] [place] [address] [place] Sodium [Moles/Vol] 139 mmol/L Normal 136-144 [facility] Comment on above: Order Comment: Speci men Type: BLOOD SPECIMEN Ordering Facility: [facility] Address: [address] [place] [address] Performed By: #### 3 016-3, 85716-7, LIPNF #### [facility] CLIA [id number] [address] [place] [address] [place] Urea nitrogen [Mass/Vol] 18 mg/dL Normal 7-21 [facility] Comment on above: Order Comment: Irenei men Type: BLOOD SPECIMEN Ordering Facility: [facility] Address: [address] [place] [address] Performed By: #### 3 016-3, 43004-6, LIPNF #### [facility] CLIA [id number] [address] [place] [address] [place] HbA1c (Bld)on 09-24-2024 Average glucose Estimated from glycated hemoglobin (Bld) [Mass/Vol] 169 mg/dL Normal [facility] Comment on above: Order Comment: Epi men Type: BLOOD SPECIMEN Ordering Facility: [facility] Address: [address] [place] [address] Result Comment: eAG: (Estimated average glucose) is a calculated value from HgbA1c and is fuels sales representative of the average blood glucose level in the last 2-3 month period. Performed By: #### 3 016-3, 11799-7, LIPNF #### [facility] CLIA [id number] [address] [place] [address] [place] HbA1c (Bld) [Mass fraction] 7.5 % High 4.3-5.6 [facility] Comment on above: Order Comment: Epi [facility] Type: BLOOD SPECIMEN Ordering Facility: [facility] Address: [address] [place] [address] Result Comment: [place] Diabetes Association guidelines indicate that patients with HgbA1c in the range 5.7-6.4% are at increased risk for development of diabetes, and intervention by lifestyle modification may be beneficial. HgbA1c greater or equal to 6.5% is considered diagnostic of diabetes. Performed By: #### 3 016-3, 93073-1, LIPNF #### [facility] CLIA [id number] [address] [place] [address] OF GUS LIPID PANEL, NONFASTINGon Cholesterol [Mass/Vol] 184 mg/dL Normal <200 [facility] Comment on above: Order Comment: Speci men Type: BLOOD SPECIMEN Ordering Facility: [facility] Address: [address] [place] [address] Result Comment: <200 mg/dL, Desirable 200-239 mg/dL, Borderline high >239 mg/dL, High Performed By: #### 3 016-3, 02151-3, LIPNF #### [facility] CLIA [id number] [address] [place] [address] STATES OF [facility] HDL CHOLESTEROL, NF 69 mg/dL Normal >39 [facility] Comment on above: Order Comment: Speci men Type: BLOOD SPECIMEN Ordering Facility: [facility] Address: [address] [place] [address] Result Comment: 40-5 9 mg/dL, Acceptable >59 mg/dL, High: Negative risk factor for coronary heart disease <40 mg/dL, Low: Positive risk factor for coronary heart disease Performed By: #### 3 016-3, 78698-7, LIPNF #### [facility] CLIA [id number] [address] [place] [address] LDL CHOLESTEROL CALCULATED, NF 103 mg/dL High <100 [facility] Comment on above: Order Comment: Speci men Type: BLOOD SPECIMEN Ordering Facility: [facility] Address: [address] [place] [address] Result Comment: <100 mg/dL, Optimal 100-129 mg/dL, Near optimal/above optimal 130-159 mg/dL, Borderline high 160-189 mg/dL, High >189 mg/dL, Very high Secondary prevention optimal LDL Cholesterol levels are recommended to be <70 mg/dL LDL cholesterol is calculated using the Zheng-NIH equation. Performed By: #### 3 016-3, 40163-3, LIPNF #### [facility] CLIA [id number] [address] [place], [place] [address] [address] [place] LDL/HDL RATIO, NF 1.49 mg/dL Normal <2.54 [facility] Comment on above: Order Comment: Speci men Type: BLOOD SPECIMEN Ordering Facility: [facility] Address: [address] [place] [address] Result Comment: Refe marahce: 1. National Cholesterol Education Program ATP III Guideline At-A-Glance Quick Desk Reference: National Heart, Lung, and Blood [place]. National Institutes of Health. 2001: NIH Publication No. 01-3305. 2. An International Atherosclerosis Society position paper: global recommendations for the management of dyslipidemia: executive summary, Atherosclerosis. 2014: 232(2):410-413. Performed By: #### 3 016-3, 66786-3, LIPNF #### [facility] [place] [id number] [address] [place] [address] [place] NON HDL CHOL, NF 115 mg/dL Normal <130 [facility] Comment on above: Order Comment: Speci men Type: BLOOD SPECIMEN Ordering Facility: [facility] Address: [address] [place] [address] Result Comment: <130 mg/dL, Optimal 130-159 mg/dL, Near optimal/above optimal 160-189 mg/dL, Borderline high 190-219 mg/dL, High >219 mg/dL, Very high Secondary prevention optimal non HDL Cholesterol levels are recommended to be <100 mg/dL Performed By: #### 3 016-3, 40756-6, LIPNF #### [facility] [place] [id number] [address] [place] [address] [place] T CHOL/HDL RATIO NF 2.67 mg/dL Normal <5.10 [facility] Comment on above: Order Comment: Speci men Type: BLOOD SPECIMEN Ordering Facility: [facility] Address: [address] [place] [address] Performed By: #### 3 016-3, 15698-4, LIPNF #### [facility] CLIA [id number] [address] [place] [address] [place] TRIGLYCERIDES, NF 66 mg/dL Normal <150 [facility] Comment on above: Order Comment: Speci men Type: BLOOD SPECIMEN Ordering Facility: [facility] Address: [address] [place] [address] Result Comment: <150 mg/dL, Normal 150-199 mg/dL, Borderline high 200-499 mg/dL, High >499 mg/dL, Very high Performed By: #### 3 016-3, 24162-9, LIPNF #### [facility] CLIA [id number] [address] [place] [address] [place] VLDL CHOLESTEROL, NF 11 mg/dL Normal <30 [facility] Comment on above: Order Comment: Speci men Type: BLOOD SPECIMEN Ordering Facility: [facility] Address: [address] [place] [address] Performed By: #### 3 016-3, 32953-2, LIPNF #### [facility] CLIA [id number] [address] [place] [address] [place] TSH SerPl-aCncon 09-24-2024 TSH Qn 0.626 m[IU]/L Normal 0.270-4.200 [facility] Comment on above: Order Comment: Speci men Type: BLOOD SPECIMEN Ordering Facility: [facility] Address: [address] [place] [address] Performed By: #### 3 016-3, 78558-1, LIPNF #### [facility] CLIA [id number] [address] [place] [address] STATES OF [place] Ngoc 08-25-2024 CNPN Telephone (INTMWS) NANCIKESHIA TOLBERT ([id number]) 1950 F Date Time Provider Department 08/25/24 PAULO SCOTT During your visit today, we [...] ECG and other testing needing patches AGGRENOX (ASPIRIN-DIPYRIDAMOLE ) 05/27/2011 14 - Other: See Comments Comments: Headache BACTRIM (SULFAMETHOXAZOLE-TRI METH*03/20/2006 Comments: dizzy, redness, face flushed BETADINE (POVIDONE-IODINE) 11/04/2006 2 - Rash CETACAINE (BUTAMBEN-TETRACAINE- BE*09/11/2012 14 - Other: See Comments Comments: excessive [...] mandibular pain, lymphadenopathy, possible angio edema per [facility] ER note 04/24/2022 MECLIZINE 03/07/2006 7 - Swelling Comments: URINARY RETENTION,FACE FELT FUNNY METOPROLOL 04/24/2006 8 - GI Upset Comments: headache.itching.sergey BETANCOURTTRIQ (MIRABEGRON) 12/26/2014 14 - Other: See Comments Comments: elevated BP PREVACID (LANSOPRAZOLE) 03/07/2006 8 - GI Upset Comments: GAS,BURPING HEADACHE PRILOSEC (OMEPRAZOLE MAGNESIUM) 6 - Diarrhea TAPE (ADHESIVE TAPE (ROSINS)) 02/12/2023 2 - Rash Comments: Paper tape TIZANIDINE 03/24/2014 14 - Other: See Comments Comments: increased pain ZELNORM (TEGASEROD HYDROGEN RACHELL*03/07/2006 4 - Hives Date Reviewed: 05/21/2024 Reviewed by: Juan Rodriguez APRN.COLLECTIONS REP - Fully Assessed Reason for Visit: Medication [...] once daily. - COMPOUNDED PRESCRIPTION SEMI ELECTRIC [facility] BED AND MATTRESS, with side rails Diagnoses: [...] Take 1 (more content not included)... Normal [facility] Emergency Department Summary on 08-22-2024 Emergency Department Summary Normal [facility] Gastroenterology Visit Repor ton 06-18-2024 Gastroenterology Visit Report Normal [facility] HIP, UNI W/ Pelvis 2-3 Views on 06-18-2024 HIP, UNI W/ Pelvis 2-3 Views Normal [facility] Lumbar Spine 2 or 3 Viewson 06-18-2024 Lumbar Spine 2 or 3 Views Normal [facility] Orthopedic Visit Reporton Orthopedic Visit Report Normal [facility] Shoulder min 2 Viewson 05-26 Shoulder min 2 Views Normal [facility] CNOVon 05-21-2024 CNOV Office Visit (INTMWS ) KESHIA ROJAS ([id number]) 1950 F Date Time Provider Department 05/21/24 1:20 PM JUAN RODRIGUEZ INTMWS During your visit today, we recorded the following information about you: Pulse Respiration Blood pressure Weight 76/minute 16/minute 128/82 92 kg Juan Rodriguez, MANAGER CAR.COLLECTIONS REP 05/24/2024 7:54 AM Signed SUBJECTIVE: Shingrix Vaccine(2 [...] and oriented to person, place, and time. Veterinarian Poultry present, NIMO. ALLERGIES Allergen Reactions Adhesive Rash [...] mandibular pain, lymphadenopathy, possible angio edema per [facility] ER note 04/24/2022 Meclizine Swelling URI (more content not included)... Normal [facility] Orthopedic Visit Reporton Orthopedic Visit Report Normal [facility] Orthopedic Visit Reporton Orthopedic Visit Report Normal [facility] Enterography Abd/Brody 04-08 Enterography Abd/Pel Normal [facility] Orthopedic Visit Reporton Orthopedic Visit Report Normal [facility] Knee 4 or More Viewson 03-12 Knee 4 or More Views Normal [facility] Orthopedic Visit Reporton Orthopedic Visit Report Normal [facility] FORTUNATO SCREENING W TOMOon 03-05 FORTUNATO SCREENING W MITCHELL * * *Final Report* * * DATE OF EXAM: Mar 05 2024 1:29PM [facility] [id number] - FORTUNATO SCREENING W MITCHELL / PROCEDURE REASON: Encounter for screening mammogram for breast cancer * * * * Physician Interpretation * * * * RESULT: [facility] [place] [id number] #[id number] - FORTUNATO SCREENING W MITCHELL HISTORY: Patient [...] Emeterio Aguirre M.D. Electronically signed on: 03/08/2024 Legal Secretary: FREDDIE Transcribe Date/Time: Mar 05 2024 1:16P Dictated by: EMETERIO AGUIRRE MD This examination was interpreted and the report reviewed and electronically signed by: EMETERIO AGUIRRE MD on Mar 08 2024 9:09AM EST [id number] N Normal [facility] Gastroenterology Visit Repor ton 02-20-2024 Gastroenterology Visit Report Normal [facility] Orthopedic Visit Reporton Orthopedic Visit Report Normal [facility] XR Knee - bilateral 4 Viewso n 07-22-2023 IMPRESSION: No acute osseous abnormality in the knees, mild degenerative changes. Legal Secretary: TAMIKO Transcribe Date/Time: Jul 22 2023 5:11P Dictated [...] No joint effusion. DIVISION OF RADIOLOGY Provider, [facility] - 07/22/2023 * * *Final Report* * [...] abnormality in the knees, mild degenerative changes. Legal Secretary: [facility] Transcribe Date/Time: Jul 22 2023 5:11P Dictated by : DAVID GONZALEZ MD This examination was interpreted and the report reviewed and electronically signed by: DAVID GONZALEZ MD on Jul 22 2023 5:14PM [facility] Radiology Study observation (narrative) [facility] XR Knee - bilateral 4 ViewsO rdered By: [facility] Provider on 07-22-2023 [facility] TOX SCREEN ROUT URon 023 Amphetamines Confirm (U) [Mass/Vol] Negative Negative [facility] Barbiturates Urine Negative Negative [facility] Benzodiazepines Urine Positive Abnormal Negative [facility] Cannabinoids Screen Ql (U) Negative Negative [facility] Cocaine Ql (U) Negative Negative [facility] Ethanol (U) [Mass/Vol] <11 mg/dL Cl [facility] Opiates Screen Ql (U) Negative Negative [facility] oxyCODONE cutoff Screen (U) [Mass/Vol] Negative Negative [facility] Phencyclidine Ql (U) Negative [facility] CBC W Auto Differential pane l (Bld)on 02-19-2023 Basophils (Bld) [#/Vol] 0.12 10*3/uL High <0.11 k/uL [facility] Basophils/100 WBC (Bld) 1.3 % C [facility] Differential cell count method Nom (Bld) Auto [facility] Eosinophils (Bld) [#/Vol] 0.73 10*3/uL High <0.46 k/ uL [facility] Eosinophils/100 WBC (Bld) 8.0 % [facility] Erythrocyte distribution width (RBC) [Ratio] 13.5 % 11.5 - 15.0 % [facility] Hematocrit (Bld) [Volume fraction] 42.7 % 36.0 - 46.0 % [facility] Hemoglobin (Bld) [Mass/Vol] 14.0 g/dL 11.5 - 15.5 g/dL [facility] Immature granulocytes (Bld) [#/Vol] 0.03 10*3/uL <0.10 k/uL [facility] Immature granulocytes/100 WBC (Bld) 0.3 % [facility] Lymphocytes (Bld) [#/Vol] 2.95 10*3/uL 1. 00 - 4.00 k/uL [facility] Lymphocytes/100 WBC (Bld) 32.3 % [facility] MCH (RBC) [Entitic mass] 31.1 pg 26. 0 - 34.0 pg [facility] MCHC (RBC) [Mass/Vol] 32.8 g/dL 30.5 - 36.0 g/dL [facility] MCV (RBC) [Entitic vol] 94.9 fL 80.0 - 100.0 fL [facility] Monocytes (Bld) [#/Vol] 0.93 10*3/uL High <0.87 k/uL [facility] Monocytes/100 WBC (Bld) 10.2 % [facility] Neutrophils (Bld) [#/Vol] 4.36 10*3/uL 1. 45 - 7.50 k/uL [facility] Neutrophils/100 WBC (Bld) 47.9 % [facility] Nucleated RBC (Bld) [#/Vol] <0.01 k/ uL [facility] Nucleated RBC/100 WBC (Bld) [Ratio] 0.0 /100 WBC [facility] Platelet mean volume (Bld) [Entitic vol] 9.8 fL 9.0 - 12.7 fL [facility] Platelets (Bld) [#/Vol] 370 10*3/uL 150 - 400 k/uL [facility] RBC (Bld) [#/Vol] 4.50 10*6/uL 3.90 - 5.2 0 m/uL [facility] WBC (Bld) [#/Vol] 9.12 10*3/uL 3.70 - 11.00 k/uL [facility] Comprehensive metabolic 2000 panelon 02-19-2023 Albumin [Mass/Vol] 4.1 g/dL 3.9 - 4.9 g/dL [facility] ALP [Catalytic activity/Vol] 60 U/L 34 - 123 U/L [facility] ALT [Catalytic activity/Vol] 24 U/L 7 - 38 U/L [facility] Anion gap [Moles/Vol] 12 mmol/L 9 - 18 mmol/L [facility] AST [Catalytic activity/Vol] 21 U/L 13 - 35 U/L [facility] Bilirubin [Mass/Vol] 0.5 mg/dL 0.2 - 1 .3 mg/dL [facility] Calcium [Mass/Vol] 9.7 mg/dL 8.5 - 10. 2 mg/dL [facility] Chloride [Moles/Vol] 103 mmol/L 97 - 10 5 mmol/L [facility] CO2 [Moles/Vol] 27 mmol/L 22 - 30 mmol/L [facility] Creatinine [Mass/Vol] 0.81 mg/dL 0.58 - 0.96 mg/dL [facility] Estimated Glomerular Filtration Rate 77 mL/min/1.73m >=60 mL/min/1.73 m [facility] Glucose [Mass/Vol] 119 mg/dL High 74 - 99 mg/dL [facility] Potassium [Moles/Vol] 4.6 mmol/L 3.7 - 5.1 mmol/L [facility] Protein [Mass/Vol] 7.2 g/dL 6.3 - 8.0 g/dL [facility] Sodium [Moles/Vol] 142 mmol/L 136 - 144 mmol/L [facility] Urea nitrogen [Mass/Vol] 19 mg/dL 7 - 21 mg/dL [facility] HbA1c (Bld)on 02-19-2023 Average glucose Estimated from glycated hemoglobin (Bld) [Mass/Vol] 128 mg/dL [facility] HbA1c (Bld) [Mass fraction] 6.1 % High 4.3 - 5. 6 % [facility] Lipid 1996 panelon 3 Cholesterol [Mass/Vol] 179 mg/dL <200 mg/dL [facility] Cholesterol in HDL [Mass/Vol] 54 mg/dL >39 mg/dL [facility] Cholesterol in LDL [Mass/Vol] 110 mg/dL High <100 mg/dL [facility] Cholesterol in LDL/Cholesterol in HDL [Mass ratio] 2.04 {ratio} <2.54 [facility] Cholesterol in VLDL [Mass/Vol] 15 mg/dL <30 mg/dL [facility] Cholesterol non HDL [Mass/Vol] 125 mg/dL <130 mg/dL [facility] Cholesterol.total/Cholester ol in HDL [Mass ratio] 3.31 {ratio} <5.10 [facility] Fasting Time 10 hrs [facility] Triglyceride [Mass/Vol] 74 mg/dL <150 mg/dL C [facility] TSH BLDon 02-19-2023 TSH Qn 3.670 m[IU]/L 0.270 - 4.200 mIU/L [facility] No Panel InformationOrdered By: Raul Casper on 10-17-2022 Stool Calprotectin 77 ug/g 0-120 [facility] Comment on above: Concentration Interp retation Follow-Up< 5 - 50 ug/g Normal None>50 -120 ug/g Borderline Re-evaluate in 4-6 weeks >120 ug/g Abnormal Repeat as clinically indicatedPerformed at: - [facility] [address] [id number] Director: Kathrin Rivera MD, Phone: [phone] Stool Pancreatic Elastase 334 >200 [facility] Comment on above: Result Units: ug [address] st./g Severe Pancreatic Insufficiency: <100 Moderate Pancreatic Insufficiency: 100 - 200 Normal: >200Performed at: [facility] [employer] [id number] Director: Kathrin Rivera MD, Phone: [phone] Stool lactoferrin detection by immunoassayOrdered By: Raul Casper on 10-17-2022 Lactoferrin IA Ql (Stl) [facility] 24 hour urine coproporphyrin 1 measurement (mass/volume)Ordered By: Raul Casper on 10-15-2022 Coproporphyrin 1 (24H U) [Mass/Vol] 21 ug/24 hr 0-24 [facility] 24 hour urine coproporphyrin 3 measurement (mass/volume)Ordered By: Raul Casper on 10-15-2022 Coproporphyrin 3 (24H U) [Mass/Vol] 81 ug/24 hr 0-74 [facility] Comment on above: Performed at: [address] [id number] Director: Kathrin Rivera MD, Phone: [phone] 24 hour urine heptacarboxylp orphyrin measurement (mass/time)Ordered By: Raul Casper on 10-15-2022 Heptacarboxylporphyrin (24H U) [Mass/Time] <3 ug/24 hr 0-4 [facility] 24 hour urine hexacarboxylpo rphyrin measurement (mass/time)Ordered By: Raul Casper on 10-15-2022 Hexacarboxylporphyrin (24H U) [Mass/Time] <3 ug/24 hr 0-1 [facility] 24 hour urine pentacarboxylp orphyrins measurement (mass/time)Ordered By: Raul Casper on 10-15-2022 Pentacarboxylporphyrins (24H U) [Mass/Time] <3 ug/24 hr 0-4 [facility] 24 hour urine uroporphyrin m easurement (mass/time)Ordered By: Raul Casper on 10-15-2022 Uroporphyrin (24H U) [Mass/Time] 9 ug/24 hr 0-24 [facility] Urine coproporphyrin 1 measu rement (mass/volume)Ordered By: Raul Casper on 10-15-2022 Coproporphyrin 1 (U) [Mass/Vol] 7 ug/L Undefined [facility] Urine coproporphyrin 3 measu rement (mass/volume)Ordered By: Raul Casper on 10-15-2022 Coproporphyrin 3 (U) [Mass/Vol] 27 ug/L Undefined [facility] Urine heptacarboxylporphyrin measurement (mass/volume)Ordered By: Raul Casper on 10-15-2022 Heptacarboxylporphyrin (U) [Mass/Vol] <1 ug/L Undefined [facility] Urine hexacarboxylporphyrin measurement (mass/volume)Ordered By: Raul Casper on 10-15-2022 Hexacarboxylporphyrin (U) [Mass/Vol] <1 ug/L Undefined [facility] Urine pentacarboxylporphyrin s measurement (mass/volume)Ordered By: Raul Casper on 10-15-2022 Pentacarboxylporphyrins (U) [Mass/Vol] <1 ug/L Undefined [facility] Urine uroporphyrin measureme nt (mass/volume)Ordered By: Raul Casper on 10-15-2022 Uroporphyrin (U) [Mass/Vol] 3 ug/L Undefine d [facility] Absolute lymphocyte countOrd ered By: Raul Casper on 10-02-2022 Lymphocytes Auto (Unsp spec) [#/Vol] 2.50 10*3/uL 0.83-4.51 [facility] Albumin Elph [Mass/Vol]Order ed By: Raul Casper on 10-02-2022 Albumin [Mass/Vol] 3.6 g/dL 2.9-4.4 [facility] Atypical perinuclear antineu trophil cytoplasmic antibodies measurementOrdered By: Raul Casper on 10-02-2022 Neutrophil cytoplasmic Ab.perinuclear.atypical IF (S) [Titer] <1:20 titer Neg:<1:20 [facility] Comment on above: Serum is slightly li pemic.The atypical pANCA pattern has been observed in asignificant percentage of patients with ulcerative colitis,primary sclerosing cholangitis and autoimmune hepatitis.Performed at: [facility] [employer] [id number] Director: Marcin Álvarez PhD, Phone: [phone] at: [facility] [place] [id number] Director: Kathrin Rivera MD, Phone: [phone] Basophil percentageOrdered B y: Raullucy Casper on 10-02-2022 Basophil percentage < 0.2 AI 0.0-0.9 [facility] Basophils/100 WBC (Bld) 0.8 % 0-1 [facility] Bilirubin [Mass/Vol] 0.40 mg/dL 0.20-1.00 [facility] Comment on above: For patients on eltr ombopag therapy, use of Dimension [place] TBIL is not recommended. Chloride [Moles/Vol] 105 mmol/L 98-107 [facility] Eosinophils/100 WBC (Bld) 5.9 % 0-5 [facility] Glucose [Mass/Vol] 136 mg/dL 74-106 [facility] Comment on above: Fasting Glucose resu lt greater than or equal to 126 mg/dL suggests DIABETES MELLITUS per A.D.A. criteria. LDH [Catalytic activity/Vol] 202 U/L 84-246 [facility] Neutrophils (Bld) [#/Vol] 6.8 10*3/uL 2.0-7.7 [facility] Neutrophils/100 WBC (Bld) 62.4 % 47-70 [facility] Potassium [Moles/Vol] 3.9 mmol/L 3.5-5.1 [facility] Protein [Mass/Vol] 7.8 g/dL 6.4-8.2 [facility] Sodium [Moles/Vol] 138 mmol/L 136-145 [facility] WBC (Bld) [#/Vol] 11.0 10*3/uL 4.4-11.0 [facility] Blood erythrocytes count (nu mber/volume)Ordered By: Raul Casper on 10-02-2022 RBC (Bld) [#/Vol] 4.83 10*6/uL 4.2-5.4 [facility] Blood hemoglobin measurement (mass/volume)Ordered By: Raul Casper on 10-02-2022 Hemoglobin (Bld) [Mass/Vol] 14.7 g/dL 12.0-15. 0 [facility] Blood lymphocytes/100 leukoc ytesOrdered By: Raul Casper on 10-02-2022 Lymphocytes/100 WBC (Bld) 22.8 % 19-41 [facility] Blood monocytes/100 leukocyt esOrdered By: Raul Casper on 10-02-2022 Monocytes/100 WBC (Bld) 7.7 % 0-10 [facility] Blood platelet mean volumeOr dered By: Raul Casper on 10-02-2022 Platelet mean volume (Bld) [Entitic vol] 10.0 fL 6.2-12.0 [facility] Determination of erythrocyte mean corpuscular volume (MCV)Ordered By: Raul Casper on 10-02-2022 MCV (RBC) [Entitic vol] 95.4 fL 81-99 [facility] Erythrocyte sedimentation ra teOrdered By: Raul Casper on 10-02-2022 ESR (Bld) [Velocity] 17 mm/h 0-30 [facility] Hematocrit Auto (Bld) [Volum e fraction]Ordered By: Raul Casper on 10-02-2022 Hematocrit (Bld) [Volume fraction] 46.1 % 37-47 [facility] Interpretation of serum or p lasma protein pattern by immunofixation (narrative resultOrdered By: Raul Casper on 10-02-2022 Protein Fractions Immunofixation Emil [Interp] See comment [facility] Comment on above: Result: Not Observed Laboratory - Chemistry and C hemistry - challengeOrdered By: Raul Casper on 10-02-2022 ALP [Catalytic activity/Vol] 76 U/L 45-117 [facility] ALT [Catalytic activity/Vol] 32 U/L 13-56 [facility] CO2 [Moles/Vol] 27.0 mmol/L 21.0-32.0 [facility] Urea nitrogen/Creatinine [Mass ratio] 18.1 mg/mg 10-20 [facility] Laboratory - Hematology and Cell countsOrdered By: Raul Casper on 10-02-2022 Erythrocyte distribution width (RBC) [Entitic vol] 47.1 fL 35.1-43.9 [facility] Erythrocyte distribution width (RBC) [Ratio] 13.4 % 11.6-14.6 [facility] Immature granulocytes/100 WBC (Bld) 0.400 % 0.0-0.9 [facility] Comment on above: IG% - Immature Granu locytes (promyelocytes, myelocytes and metamyelocytes) > 1% indicates that a LEFT SHIFT is Present. MCH (RBC) [Entitic mass] 30.4 pg 27.0-32.0 [facility] Nucleated RBC/100 WBC (Bld) [Ratio] 0 % 0-5 [facility] MCHC Auto (RBC) [Mass/Vol]Or dered By: Raul Casper on 10-02-2022 MCHC (RBC) [Mass/Vol] 31.9 g/dL 32-36 [facility] No Panel InformationOrdered By: Raul Casper on 10-02-2022 Addendum Document Comment . [facility] Comment on above: Protein electrophore sis scan will follow via computer,mail, or animal behaviourist delivery. Centromere B Antibody <0.2 AI 0.0-0.9 [facility] Endomysial IgA Antibody Negative Negative [facility] Estimated GFR (MDRD) Amer 75 mL/min >60 [facility] Comment on above: GFR Calc Estimated GFR (MDRD) Non-Af Amer 62 mL/min >60 [facility] Comment on above: Non- GFR Calc Immunoglobulin E 171 IU/mL 6-495 [facility] Miscellaneous Test See comment [facility] Comment on above: TEST RESULT LIMITSIB D [...] developed and its performance characteristics determined by [facility]. It has not been cleared or approved by the Food and Drug Administration. The FDA has determined that such clearance or approval is not necessary.Atypical pANCA Negative Negative Comments Pattern is not suggestive of Inflammatory Bowel Disease TESTING PERFORMED AT [facility]. ORIGINAL REPORT ON FILE IN LAB CONTAINS ADDITIONAL TEST SITE INFORMATION. [employer]PERATOR Antibody <0.2 AI 0.0-0.9 [facility] Platelets bldOrdered By: Freddy Casper on 10-02-2022 Platelets (Bld) [#/Vol] 334 10*3/uL 150-450 [facility] Serum DNA double strand anti body assay (units/volume)Ordered By: Raul Casper on 10-02-2022 DNA double strand Ab Qn (S) 1 [IU]/mL 0-9 [facility] Comment on above: Negative <5 Equivoca l 5 - 9 Positive >9 Serum Shira-1 antibody assay (u nits/volume)Ordered By: Raul Casper on 10-02-2022 Shira-1 extractable nuclear Ab Qn (S) <0.2 AI 0.0-0.9 [facility] Serum Scl-70 extractable nuc lear antibody assay (units/volume)Ordered By: Raul Casper on 10-02-2022 SCL-70 extractable nuclear Ab Qn (S) <0.2 AI 0.0-0.9 [facility] Serum Louise extractable nucl ear antibody detectionOrdered By: Raul Casper on 10-02-2022 Louise extractable nuclear Ab Ql (S) <0.2 AI 0.0-0.9 [facility] Serum [id number] measu rement by electrophoresisOrdered By: Raul Casper on 10-02-2022 Alpha 1 globulin Elph [Mass/Vol] 0.2 g/dL 0.0-0.4 [facility] Alpha 1 globulin Elph [Mass/Vol] 0.7 g/dL 0.4-1.0 [facility] Serum classic neutrophil cyt oplasmic antibody assay (units/volume)Ordered By: Raul Casper on 10-02-2022 Neutrophil cytoplasmic Ab.classic Qn (S) <1:20 titer Neg:<1:20 [facility] Comment on above: Serum is slightly li pemic. Serum globulin measurement ( mass/volume)Ordered By: Raul Casper on 10-02-2022 Globulin (S) [Mass/Vol] 3.5 g/dL 2.2-3.9 [facility] Serum or plasma C reactive p rotein measurement (mass/volume)Ordered By: Raul Casper on 10-02-2022 CRP [Mass/Vol] 5.65 mg/L 0.0-3.0 [facility] Comment on above: C-Reactive Protein ( CRP) provides useful information for thediagnosis, therapy and monitoring of inflammatory processesand associated diseases. For the evaluation of Relative Riskfor Cardiovascular Disease, a High Sensitivity CRP (HSCRP)should be ordered. Serum or plasma IgA measurem ent (mass/volume)Ordered By: Raul Casper on 10-02-2022 IgA [Mass/Vol] 473 mg/dL 64-422 [facility] Serum or plasma IgG measurem ent (mass/volume)Ordered By: Raul Casper on 10-02-2022 IgG [Mass/Vol] 1301 mg/dL [phone] [facility] Serum or plasma IgM measurem ent (mass/volume)Ordered By: Raul Casper on 10-02-2022 IgM [Mass/Vol] 75 mg/dL 26-217 [facility] Serum or plasma albumin jojo urement (mass/volume)Ordered By: Raul Casper on 10-02-2022 Albumin [Mass/Vol] 3.5 g/dL 3.2-5.0 [facility] Serum or plasma albumin/glob ulin mass ratioOrdered By: Raul Casper on 10-02-2022 Albumin/Globulin [Mass ratio] 0.8 {ratio} 0.9-2.4 [facility] Serum or plasma beta globuli n measurement by electrophoresis (mass/volume)Ordered By: Raul Casper on 10-02-2022 Beta globulin Elph [Mass/Vol] 1.2 g/dL 0.7-1.3 [facility] Serum or plasma calcium jojo urement (mass/volume)Ordered By: Raul Casper on 10-02-2022 Calcium [Mass/Vol] 9.2 mg/dL 8.5-10.1 [facility] Serum or plasma creatinine m easurement (mass/volume)Ordered By: Raul Casper on 10-02-2022 Creatinine [Mass/Vol] 0.94 mg/dL 0.55-1.02 [facility] Comment on above: The validity of the calculated GFR & GFRAA in patients over 70 years has not been determined. Clinical correlation is essential. Serum or plasma gamma globul in measurement by electrophoresis (mass/volume)Ordered By: Raul Casper on 10-02-2022 Gamma globulin Elph [Mass/Vol] 1.3 g/dL 0.4-1.8 [facility] Serum or plasma immunoelectr ophoresis interpretation (nominal result)Ordered By: Raul Casper on 10-02-2022 Interpretation IEP [Interp] Comment . [facility] Comment on above: No monoclonality det ected. Serum or plasma urea nitroge n measurement (mass/volume)Ordered By: Raul Casper on 10-02-2022 Urea nitrogen [Mass/Vol] 17 mg/dL 7-18 [facility] Serum perinuclear neutrophil cytoplasmic antibody titer by immunofluorescenceOrdered By: Raul Casper on 10-02-2022 Neutrophil cytoplasmic Ab.perinuclear IF (S) [Titer] <1:20 titer Neg:<1:20 [facility] Comment on above: Serum is slightly li pemic.The presence of positive fluorescence exhibiting P-ANCA orC-ANCA patterns alone is not specific for the diagnosis ofWegener's Granulomatosis (WG) or microscopic polyangiitis.Decisions about treatment should not be based solely onANCA IFA results. The [employer] ANCA Group Consensusrecommends follow up testing of positive sera with both MD-3 and MPO-ANCA enzyme immunoassays. As many as 5% serumsamples are positive only by EIA. Ref. AM J Clin [id number];111:507-513. Serum tissue transglutaminas e IgA antibody assay (units/volume)Ordered By: Raul Casper on 10-02-2022 tTG IgA Qn (S) <2 U/mL 0-3 [facility] Comment on above: Negative 0 - 3 Weak Positive 4 - 10 Positive >10 Tissue Transglutaminase (tTG) has been identified as the endomysial antigen. Studies have demonstr- ated that endomysial IgA antibodies have over 99% specificity for gluten sensitive enteropathy. Thin prep Papanicolaou smear with manual screeningOrdered By: Raul Friend on 10-02-2022 Thin prep Papanicolaou smear with manual screening 21 U/L 15-37 [facility] Thin prep Papanicolaou smear with manual screening 6 5-15 [facility] Thin prep Papanicolaou smear with manual screening 1.1 0.7-1.7 [facility] Total protein bloodOrdered B y: Raul Friend on 10-02-2022 Protein [Mass/Vol] 7.1 g/dL 6.0-8.5 [facility] FORTUNATO SCREENINGon 09-13-2022 [facility] Absolute lymphocyte countOrd ered By: ED PROVIDER on 08-05-2022 Lymphocytes Auto (Unsp spec) [#/Vol] 2.49 10*3/uL 0.83-4.51 [facility] Basophil percentageOrdered B y: ED PROVIDER on 08-05-2022 Basophils/100 WBC (Bld) 1.2 % 0-1 [facility] Bilirubin [Mass/Vol] 0.70 mg/dL 0.20-1.00 [facility] Comment on above: For patients on eltr ombopag therapy, use of Dimension [place] TBIL is not recommended. Chloride [Moles/Vol] 107 mmol/L 98-107 [facility] Eosinophils/100 WBC (Bld) 5.4 % 0-5 [facility] Glucose [Mass/Vol] 110 mg/dL 74-106 [facility] Comment on above: Fasting Glucose resu lt from 100 to 125 mg/dL suggests IMPAIRED HOMEOSTASIS per A.D.A. criteria. Neutrophils (Bld) [#/Vol] 5.9 10*3/uL 2.0-7.7 [facility] Neutrophils/100 WBC (Bld) 60.4 % 47-70 [facility] Potassium [Moles/Vol] 4.1 mmol/L 3.5-5.1 [facility] Protein [Mass/Vol] 7.7 g/dL 6.4-8.2 [facility] Sodium [Moles/Vol] 140 mmol/L 136-145 [facility] WBC (Bld) [#/Vol] 9.8 10*3/uL 4.4-11.0 [facility] Blood erythrocytes count (nu mber/volume)Ordered By: ED PROVIDER on 08-05-2022 RBC (Bld) [#/Vol] 4.73 10*6/uL 4.2-5.4 [facility] Blood hemoglobin measurement (mass/volume)Ordered By: ED PROVIDER on 08-05-2022 Hemoglobin (Bld) [Mass/Vol] 14.8 g/dL 12.0-15. 0 [facility] Blood lymphocytes/100 leukoc ytesOrdered By: ED PROVIDER on 08-05-2022 Lymphocytes/100 WBC (Bld) 25.3 % 19-41 [facility] Blood monocytes/100 leukocyt esOrdered By: ED PROVIDER on 08-05-2022 Monocytes/100 WBC (Bld) 7.4 % 0-10 [facility] Blood platelet mean volumeOr dered By: ED PROVIDER on 08-05-2022 Platelet mean volume (Bld) [Entitic vol] 9.4 fL 6.2-12.0 [facility] Determination of erythrocyte mean corpuscular volume (MCV)Ordered By: ED PROVIDER on 08-05-2022 MCV (RBC) [Entitic vol] 93.2 fL 81-99 [facility] Hematocrit Auto (Bld) [Volum e fraction]Ordered By: ED PROVIDER on 08-05-2022 Hematocrit (Bld) [Volume fraction] 44.1 % 37-47 [facility] Laboratory - Chemistry and C hemistry - challengeOrdered By: ED PROVIDER on 08-05-2022 ALP [Catalytic activity/Vol] 93 U/L 45-117 [facility] ALT [Catalytic activity/Vol] 37 U/L 13-56 [facility] CO2 [Moles/Vol] 27.0 mmol/L 21.0-32.0 [facility] Globulin (S) [Mass/Vol] 4.2 g/dL 2.2-4.2 [facility] Urea nitrogen/Creatinine [Mass ratio] 16.9 mg/mg 10-20 [facility] Laboratory - Chemistry and C hemistry - challengeOrdered By: Paul Lara on 08-05-2022 Lipase [Catalytic activity/Vol] 27 U/L 13-75 [facility] Comment on above: Please note:LIPASE r evised reference range effective 22. New Lipase methodology. Expected to produce lower values than the previous assay method. NEW Reference Range: 13 - 75 U/L Laboratory - Hematology and Cell countsOrdered By: ED PROVIDER on 08-05-2022 Erythrocyte distribution width (RBC) [Entitic vol] 44.8 fL 35.1-43.9 [facility] Erythrocyte distribution width (RBC) [Ratio] 13.1 % 11.6-14.6 [facility] Immature granulocytes/100 WBC (Bld) 0.300 % 0.0-0.9 [facility] Comment on above: IG% - Immature Granu locytes (promyelocytes, myelocytes and metamyelocytes) > 1% indicates that a LEFT SHIFT is Present. MCH (RBC) [Entitic mass] 31.3 pg 27.0-32.0 [facility] Nucleated RBC/100 WBC (Bld) [Ratio] 0 % 0-5 [facility] MCHC Auto (RBC) [Mass/Vol]Or dered By: ED PROVIDER on 08-05-2022 MCHC (RBC) [Mass/Vol] 33.6 g/dL 32-36 [facility] No Panel InformationOrdered By: ED PROVIDER on 08-05-2022 Estimated Creatinine Clearance Calc 49.34 ml/min [facility] Estimated GFR (MDRD) Amer 80 mL/min >60 [facility] Comment on above: GFR Calc Estimated GFR (MDRD) Non-Af Amer 66 mL/min >60 [facility] Comment on above: Non- GFR Calc Platelets bldOrdered By: ED PROVIDER on 08-05-2022 Platelets (Bld) [#/Vol] 326 10*3/uL 150-450 [facility] Serum or plasma albumin jojo urement (mass/volume)Ordered By: ED PROVIDER on 08-05-2022 Albumin [Mass/Vol] 3.5 g/dL 3.2-5.0 [facility] Serum or plasma albumin/glob ulin mass ratioOrdered By: ED PROVIDER on 08-05-2022 Albumin/Globulin [Mass ratio] 0.8 {ratio} 0.9-2.4 [facility] Serum or plasma calcium jojo urement (mass/volume)Ordered By: ED PROVIDER on 08-05-2022 Calcium [Mass/Vol] 9.5 mg/dL 8.5-10.1 [facility] Serum or plasma creatinine m easurement (mass/volume)Ordered By: ED PROVIDER on 08-05-2022 Creatinine [Mass/Vol] 0.89 mg/dL 0.55-1.02 [facility] Comment on above: The validity of the calculated GFR & GFRAA in patients over 70 years has not been determined. Clinical correlation is essential. Serum or plasma urea nitroge n measurement (mass/volume)Ordered By: ED PROVIDER on 08-05-2022 Urea nitrogen [Mass/Vol] 15 mg/dL 7-18 [facility] Thin prep Papanicolaou smear with manual screeningOrdered By: ED PROVIDER on 08-05-2022 Thin prep Papanicolaou smear with manual screening 23 U/L 15-37 [facility] Thin prep Papanicolaou smear with manual screening 6 5-15 [facility] Absolute lymphocyte countOrd ered By: Dr. Bernabe on 05-06-2022 Lymphocytes Auto (Unsp spec) [#/Vol] 3.48 10*3/uL 0.83-4.51 [facility] Basophil percentageOrdered B y: Dr. Bernabe on 05-06-2022 Basophils/100 WBC (Bld) 1.0 % 0-1 [facility] Bilirubin [Mass/Vol] 0.60 mg/dL 0.20-1.00 [facility] Comment on above: For patients on eltr ombopag therapy, use of Dimension [place] TBIL is not recommended. Chloride [Moles/Vol] 108 mmol/L 98-107 [facility] Eosinophils/100 WBC (Bld) 9.0 % 0-5 [facility] Glucose [Mass/Vol] 124 mg/dL 74-106 [facility] Comment on above: Fasting Glucose resu lt from 100 to 125 mg/dL suggests IMPAIRED HOMEOSTASIS per A.D.A. criteria. Neutrophils (Bld) [#/Vol] 3.1 10*3/uL 2.0-7.7 [facility] Neutrophils/100 WBC (Bld) 37.9 % 47-70 [facility] Potassium [Moles/Vol] 3.5 mmol/L 3.5-5.1 [facility] Protein [Mass/Vol] 6.4 g/dL 6.4-8.2 [facility] Sodium [Moles/Vol] 141 mmol/L 136-145 [facility] WBC (Bld) [#/Vol] 8.1 10*3/uL 4.4-11.0 [facility] Blood erythrocytes count (nu mber/volume)Ordered By: Dr. Bernabe on 05-06-2022 RBC (Bld) [#/Vol] 4.31 10*6/uL 4.2-5.4 [facility] Blood hemoglobin measurement (mass/volume)Ordered By: Dr. Bernabe on 05-06-2022 Hemoglobin (Bld) [Mass/Vol] 13.2 g/dL 12.0-15. 0 [facility] Blood lymphocytes/100 leukoc ytesOrdered By: Dr. Bernabe on 05-06-2022 Lymphocytes/100 WBC (Bld) 42.9 % 19-41 [facility] Blood monocytes/100 leukocyt esOrdered By: Dr. Bernabe on 05-06-2022 Monocytes/100 WBC (Bld) 9.0 % 0-10 [facility] Blood platelet mean volumeOr dered By: Dr. Bernabe on 05-06-2022 Platelet mean volume (Bld) [Entitic vol] 9.7 fL 6.2-12.0 [facility] Determination of erythrocyte mean corpuscular volume (MCV)Ordered By: Dr. Bernabe on 05-06-2022 MCV (RBC) [Entitic vol] 94.7 fL 81-99 [facility] Hematocrit Auto (Bld) [Volum e fraction]Ordered By: Dr. Bernabe on 05-06-2022 Hematocrit (Bld) [Volume fraction] 40.8 % 37-47 [facility] Laboratory - Chemistry and C hemistry - challengeOrdered By: Dr. Bernabe on 05-06-2022 ALP [Catalytic activity/Vol] 59 U/L 45-117 [facility] ALT [Catalytic activity/Vol] 27 U/L 13-56 [facility] CO2 [Moles/Vol] 26.0 mmol/L 21.0-32.0 [facility] Globulin (S) [Mass/Vol] 3.4 g/dL 2.2-4.2 [facility] Urea nitrogen/Creatinine [Mass ratio] 15.0 mg/mg 10-20 [facility] Laboratory - Hematology and Cell countsOrdered By: Dr. Bernabe on 05-06-2022 Erythrocyte distribution width (RBC) [Entitic vol] 46.9 fL 35.1-43.9 [facility] Erythrocyte distribution width (RBC) [Ratio] 13.4 % 11.6-14.6 [facility] Immature granulocytes/100 WBC (Bld) 0.200 % 0.0-0.9 [facility] Comment on above: IG% - Immature Granu locytes (promyelocytes, myelocytes and metamyelocytes) > 1% indicates that a LEFT SHIFT is Present. MCH (RBC) [Entitic mass] 30.6 pg 27.0-32.0 [facility] Nucleated RBC/100 WBC (Bld) [Ratio] 0 % 0-5 [facility] MCHC Auto (RBC) [Mass/Vol]Or dered By: Dr. Bernabe on 05-06-2022 MCHC (RBC) [Mass/Vol] 32.4 g/dL 32-36 [facility] No Panel InformationOrdered By: Dr. Campos on 05-06-2022 D-Dimer Quantitative (PE/DVT) 0.50 FEU/ug/m 0.27-0.49 [facility] Comment on above: D-Dimer ELEVATED (>0 .49): Additional studies and clinicalassessments are indicated to conclude diagnosis of:Deep Vein Thrombosis (DVT) or Pulmonary Embolism (PE)CRITICAL VALUE VERIFIED. CALLED TO [id number]/20/23 1101 Tessie Andrade.RESULTS READ BACK BY SAME . Thyroid Stimulating Hormone (TSH) 4.36 uIU/mL 0.358-3.74 [facility] No Panel InformationOrdered By: Dr. Bernabe on 05-06-2022 Estimated Creatinine Clearance Calc 54.89 ml/min [facility] Estimated GFR (MDRD) Amer 91 mL/min >60 [facility] Comment on above: GFR Calc Estimated GFR (MDRD) Non-Af Amer 75 mL/min >60 [facility] Comment on above: Non- GFR Calc Platelets bldOrdered By: Dr. Bernabe on 05-06-2022 Platelets (Bld) [#/Vol] 293 10*3/uL 150-450 [facility] Serum or plasma albumin jojo urement (mass/volume)Ordered By: Dr. Bernabe on 05-06-2022 Albumin [Mass/Vol] 3.0 g/dL 3.2-5.0 [facility] Serum or plasma albumin/glob ulin mass ratioOrdered By: Dr. Bernabe on 05-06-2022 Albumin/Globulin [Mass ratio] 0.9 {ratio} 0.9-2.4 [facility] Serum or plasma calcium jojo urement (mass/volume)Ordered By: Dr. Bernabe on 05-06-2022 Calcium [Mass/Vol] 8.6 mg/dL 8.5-10.1 [facility] Serum or plasma creatinine m easurement (mass/volume)Ordered By: Dr. Bernabe on 05-06-2022 Creatinine [Mass/Vol] 0.80 mg/dL 0.55-1.02 [facility] Comment on above: The validity of the calculated GFR & GFRAA in patients over 70 years has not been determined. Clinical correlation is essential. Serum or plasma urea nitroge n measurement (mass/volume)Ordered By: Dr. Bernabe on 05-06-2022 Urea nitrogen [Mass/Vol] 12 mg/dL 7-18 [facility] Thin prep Papanicolaou smear with manual screeningOrdered By: Dr. Bernabe on 05-06-2022 Thin prep Papanicolaou smear with manual screening 22 U/L 15-37 [facility] Thin prep Papanicolaou smear with manual screening 7 5-15 [facility] Absolute lymphocyte countOrd ered By: La Nena Collazo on 05-05-2022 Lymphocytes Auto (Unsp spec) [#/Vol] 2.27 10*3/uL 0.83-4.51 [facility] Basophil percentageOrdered B y: La Nena Collazo on 05-05-2022 Basophil percentage 0-5 SEEN /hpf 0-5 [facility] Basophils/100 WBC (Bld) 0.9 % 0-1 [facility] Chloride [Moles/Vol] 105 mmol/L 98-107 [facility] Eosinophils/100 WBC (Bld) 4.8 % 0-5 [facility] Glucose [Mass/Vol] 183 mg/dL 74-106 [facility] Comment on above: Fasting Glucose resu lt greater than or equal to 126 mg/dL suggests DIABETES MELLITUS per A.D.A. criteria. Neutrophils (Bld) [#/Vol] 6.8 10*3/uL 2.0-7.7 [facility] Neutrophils/100 WBC (Bld) 65.4 % 47-70 [facility] Potassium [Moles/Vol] 3.9 mmol/L 3.5-5.1 [facility] Sodium [Moles/Vol] 137 mmol/L 136-145 [facility] WBC (Bld) [#/Vol] 10.4 10*3/uL 4.4-11.0 [facility] Bilirubin Test strip Ql (U)O rdered By: La Nena Collazo on 05-05-2022 Bilirubin Ql (U) Negative Negative [facility] Blood erythrocytes count (nu mber/volume)Ordered By: La Nena Collazo on 05-05-2022 RBC (Bld) [#/Vol] 4.66 10*6/uL 4.2-5.4 [facility] Blood hemoglobin measurement (mass/volume)Ordered By: La Nena Collazo on 05-05-2022 Hemoglobin (Bld) [Mass/Vol] 14.3 g/dL 12.0-15. 0 [facility] Blood lymphocytes/100 leukoc ytesOrdered By: La Nena Collazo on 05-05-2022 Lymphocytes/100 WBC (Bld) 21.7 % 19-41 [facility] Blood monocytes/100 leukocyt esOrdered By: La Nena Collazo on 05-05-2022 Monocytes/100 WBC (Bld) 6.9 % 0-10 [facility] Blood platelet mean volumeOr dered By: La Nena Collazo on 05-05-2022 Platelet mean volume (Bld) [Entitic vol] 9.4 fL 6.2-12.0 [facility] Determination of erythrocyte mean corpuscular volume (MCV)Ordered By: La Nena Collazo on 05-05-2022 MCV (RBC) [Entitic vol] 93.6 fL 81-99 [facility] Hematocrit Auto (Bld) [Volum e fraction]Ordered By: La Nena Collazo on 05-05-2022 Hematocrit (Bld) [Volume fraction] 43.6 % 37-47 [facility] Ketones Test strip Ql (U)Ord ered By: La Nena Collazo on 05-05-2022 Ketones Ql (U) Negative Negative [facility] Laboratory - Chemistry and C hemistry - challengeOrdered By: La Nena Collazo on 05-05-2022 CK [Catalytic activity/Vol] 186 U/L 26-192 [facility] CO2 [Moles/Vol] 25.0 mmol/L 21.0-32.0 [facility] Urea nitrogen/Creatinine [Mass ratio] 21.5 mg/mg 10-20 [facility] Laboratory - Hematology and Cell countsOrdered By: La Nena Collazo on 05-05-2022 Erythrocyte distribution width (RBC) [Entitic vol] 45.6 fL 35.1-43.9 [facility] Erythrocyte distribution width (RBC) [Ratio] 13.3 % 11.6-14.6 [facility] Immature granulocytes/100 WBC (Bld) 0.300 % 0.0-0.9 [facility] Comment on above: IG% - Immature Granu locytes (promyelocytes, myelocytes and metamyelocytes) > 1% indicates that a LEFT SHIFT is Present. MCH (RBC) [Entitic mass] 30.7 pg 27.0-32.0 [facility] Nucleated RBC/100 WBC (Bld) [Ratio] 0 % 0-5 [facility] MCHC Auto (RBC) [Mass/Vol]Or dered By: La Nena Collazo on 05-05-2022 MCHC (RBC) [Mass/Vol] 32.8 g/dL 32-36 [facility] Mucus LM Ql (Urine sed)Order ed By: La Nena Collazo on 05-05-2022 Mucus Ql (Urine sed) 0 SEEN /hpf [facility] Nitrite Test strip Ql (U)Ord ered By: La Nena Collazo on 05-05-2022 Nitrite Ql (U) Negative Negative [facility] No Panel InformationOrdered By: La Nena Collazo on 05-05-2022 Troponin I High Sensitivity 4 pg/mL 3.0-54.0 [facility] Comment on above: Please Note: New Ariella t Units and Gender Specific Reference Ranges. For more information see Policy Stat Procedure [place] High Sensitivity Troponin (TNIH) and attachments. Estimated Creatinine Clearance Calc 44.81 ml/min [facility] Estimated GFR (MDRD) Amer 72 mL/min >60 [facility] Comment on above: GFR Calc Estimated GFR (MDRD) Non-Af Amer 59 mL/min >60 [facility] Comment on above: Non- GFR Calc Platelets bldOrdered By: Smita Collazo on 05-05-2022 Platelets (Bld) [#/Vol] 310 10*3/uL 150-450 [facility] Protein Test strip Ql (U)Ord ered By: La Nena Collazo on 05-05-2022 Protein Ql (U) Negative Negative [facility] Serum or plasma calcium jojo urement (mass/volume)Ordered By: La Nena Collazo on 05-05-2022 Calcium [Mass/Vol] 9.2 mg/dL 8.5-10.1 [facility] Serum or plasma creatinine m easurement (mass/volume)Ordered By: La Nena Collazo on 05-05-2022 Creatinine [Mass/Vol] 0.98 mg/dL 0.55-1.02 [facility] Comment on above: The validity of the calculated GFR & GFRAA in patients over 70 years has not been determined. Clinical correlation is essential. Serum or plasma urea nitroge n measurement (mass/volume)Ordered By: La Nena Collazo on 05-05-2022 Urea nitrogen [Mass/Vol] 21 mg/dL 7-18 [facility] Squamous epithelial cells de tection in urine sediment by light microscopyOrdered By: La Nena Collazo on 05-05-2022 Epithelial cells.squamous LM Ql (Urine sed) 0-5 SEEN /hpf 5-10 [facility] Thin prep Papanicolaou smear with manual screeningOrdered By: La Nena Collazo on 05-05-2022 Thin prep Papanicolaou smear with manual screening 7 5-15 [facility] Urine blood detectionOrdered By: La Nena Collazo on 05-05-2022 RBC Ql (U) Negative Negative [facility] RBC Ql (U) 0 SEEN /hpf 0-5 [facility] Urine clarityOrdered By: Smita Collazo on 05-05-2022 Clarity (U) Clear Clear [facility] Urine color determinationOrd ered By: La Nena Collazo on 05-05-2022 Color (U) Straw Yellow [facility] Urine glucose detectionOrder ed By: La Nena Collazo on 05-05-2022 Glucose Ql (U) Normal mg/dl Normal [facility] Urine leukocyte esterase det ection by dipstickOrdered By: La Nena Collazo on 05-05-2022 Leukocyte esterase Test strip Ql (U) 25 /ul Negative [facility] Urine pHOrdered By: La Nena ramos on 05-05-2022 pH (U) 6.0 [pH] 5.0 - 8.0 [facility] Urine sediment bacteria coun t by microscopy (number/high power field)Ordered By: La Nena Collazo on 05-05-2022 Bacteria LM.HPF (Urine sed) [#/Area] 0 /[HPF] None Seen [facility] Urine specific gravity measu rementOrdered By: La Nena Collazo on 05-05-2022 Specific gravity (U) [Rel density] 1.010 1.002-1.030 [facility] Urobilinogen Auto test strip Ql (U)Ordered By: La Nena Collazo on 05-05-2022 Urobilinogen Ql (U) Normal mg/dl Normal [facility] Absolute lymphocyte countOrd ered By: Dr. Alatorre on 04-24-2022 Lymphocytes Auto (Unsp spec) [#/Vol] 3.87 10*3/uL 0.83-4.51 [facility] Basophil percentageOrdered B y: Dr. Alatorre on 04-24-2022 Basophils/100 WBC (Bld) 0.9 % 0-1 [facility] Chloride [Moles/Vol] 107 mmol/L 98-107 [facility] Eosinophils/100 WBC (Bld) 6.8 % 0-5 [facility] Glucose [Mass/Vol] 104 mg/dL 74-106 [facility] Comment on above: Fasting Glucose resu lt from 100 to 125 mg/dL suggests IMPAIRED HOMEOSTASIS per A.D.A. criteria. Neutrophils (Bld) [#/Vol] 5.5 10*3/uL 2.0-7.7 [facility] Neutrophils/100 WBC (Bld) 49.5 % 47-70 [facility] Potassium [Moles/Vol] 3.8 mmol/L 3.5-5.1 [facility] Sodium [Moles/Vol] 142 mmol/L 136-145 [facility] WBC (Bld) [#/Vol] 11.1 10*3/uL 4.4-11.0 [facility] Blood erythrocytes count (nu mber/volume)Ordered By: Dr. Alatorre on 04-24-2022 RBC (Bld) [#/Vol] 4.79 10*6/uL 4.2-5.4 [facility] Blood hemoglobin measurement (mass/volume)Ordered By: Dr. Alatorre on 04-24-2022 Hemoglobin (Bld) [Mass/Vol] 14.5 g/dL 12.0-15. 0 [facility] Blood lymphocytes/100 leukoc ytesOrdered By: Dr. Alatorre on 04-24-2022 Lymphocytes/100 WBC (Bld) 34.8 % 19-41 [facility] Blood monocytes/100 leukocyt esOrdered By: Dr. Alatorre on 04-24-2022 Monocytes/100 WBC (Bld) 7.7 % 0-10 [facility] Blood platelet mean volumeOr dered By: Dr. Alatorre on 04-24-2022 Platelet mean volume (Bld) [Entitic vol] 9.5 fL 6.2-12.0 [facility] Determination of erythrocyte mean corpuscular volume (MCV)Ordered By: Dr. Alatorre on 04-24-2022 MCV (RBC) [Entitic vol] 94.8 fL 81-99 [facility] Hematocrit Auto (Bld) [Volum e fraction]Ordered By: Dr. Alatorre on 04-24-2022 Hematocrit (Bld) [Volume fraction] 45.4 % 37-47 [facility] Laboratory - Chemistry and C hemistry - challengeOrdered By: Dr. Alatorre on 04-24-2022 CO2 [Moles/Vol] 29.0 mmol/L 21.0-32.0 [facility] Urea nitrogen/Creatinine [Mass ratio] 20.2 mg/mg 10-20 [facility] Laboratory - Hematology and Cell countsOrdered By: Dr. Alatorre on 04-24-2022 Erythrocyte distribution width (RBC) [Entitic vol] 46.0 fL 35.1-43.9 [facility] Erythrocyte distribution width (RBC) [Ratio] 13.2 % 11.6-14.6 [facility] Immature granulocytes/100 WBC (Bld) 0.300 % 0.0-0.9 [facility] Comment on above: IG% - Immature Granu locytes (promyelocytes, myelocytes and metamyelocytes) > 1% indicates that a LEFT SHIFT is Present. MCH (RBC) [Entitic mass] 30.3 pg 27.0-32.0 [facility] Nucleated RBC/100 WBC (Bld) [Ratio] 0 % 0-5 [facility] MCHC Auto (RBC) [Mass/Vol]Or dered By: Dr. Alatorre on 04-24-2022 MCHC (RBC) [Mass/Vol] 31.9 g/dL 32-36 [facility] No Panel InformationOrdered By: Dr. Alatorre on 04-24-2022 Estimated Creatinine Clearance Calc 43.91 ml/min [facility] Estimated GFR (MDRD) Amer 92 mL/min >60 [facility] Comment on above: GFR Calc Estimated GFR (MDRD) Non-Af Amer 76 mL/min >60 [facility] Comment on above: Non- GFR Calc Platelets bldOrdered By: Dr. Alatorre on 04-24-2022 Platelets (Bld) [#/Vol] 319 10*3/uL 150-450 [facility] Serum or plasma calcium jojo urement (mass/volume)Ordered By: Dr. Alatorre on 04-24-2022 Calcium [Mass/Vol] 9.3 mg/dL 8.5-10.1 [facility] Serum or plasma creatinine m easurement (mass/volume)Ordered By: Dr. Alatorre on 04-24-2022 Creatinine [Mass/Vol] 0.79 mg/dL 0.55-1.02 [facility] Comment on above: The validity of the calculated GFR & GFRAA in patients over 70 years has not been determined. Clinical correlation is essential. Serum or plasma urea nitroge n measurement (mass/volume)Ordered By: Dr. Alatorre on 04-24-2022 Urea nitrogen [Mass/Vol] 16 mg/dL 7-18 [facility] Thin prep Papanicolaou smear with manual screeningOrdered By: Dr. Alatorre on 04-24-2022 Thin prep Papanicolaou smear with manual screening 6 5-15 [facility] T3 FREE BLDon 10-13-2021 Free T3 [Mass/Vol] 3.1 pg/mL 2.3 - 4.1 pg/mL [facility] T4 FREE/FREE THYROXon 2021 Free T4 [Mass/Vol] 1.4 ng/dL 0.9 - 1.7 ng/dL [facility] TSH [facility] 10-13-2021 TSH Qn 1.750 m[IU]/L 0.270 - 4.200 mIU/L [facility] XR Shoulder - right 3 Viewso n 12-15-2020 IMPRESSION: 1. Degenerative changes 2. Question of a Hill-Sachs deformity of the humeral head Legal Secretary: TAMIKO Transcribe Date/Time: Dec 15 2020 2:27P Dictated by : KHADIJAH SHEEHAN DO This examination was interpreted and the report reviewed and electronically signed by: KHADIJAH SHEEHAN DO on Dec 15 2020 2:29PM [facility] DIVISION OF RADIOLOGY * * *Final Report* [...] are seen. DIVISION OF RADIOLOGY Provider, Timbo Irvin [facility] - 12/15/2020 * * *Final Report* * [...] a Hill-Sachs deformity of the humeral head Legal Secretary: TAMIKO Transcribe Date/Time: Dec 15 2020 2:27P Dictated by : KHADIJAH SHEEHAN DO This examination was interpreted and the report reviewed and electronically signed by: KHADIJAH SHEEHAN DO on Dec 15 2020 2:29PM EST [facility] Radiology Study observation (narrative) [facility] XR Shoulder - right 3 ViewsO rdered By: [facility] Provider on 12-15-2020 [facility] XR Hand - right PA and Later al and Obliqueon 08-30-2020 IMPRESSION: No acute osseous abnormality. Mild degenerative change. Legal Secretary: TAMIKO Transcribe Date/Time: Aug 30 2020 2:37P [...] the ulnar styloid. DIVISION OF RADIOLOGY Provider, [facility] - 08/30/2020 * * *Final Report* [...] No acute osseous abnormality. Mild degenerative change. 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 Postsurgical change. No complication. Legal Secretary: TAMIKO Transcribe Date/Time: Jul 11 2020 1:24P Dictated by : ISABELA ORTEZ MD This examination was interpreted and the report reviewed and electronically signed by: ISABELA ORTEZ MD on Jul 11 2020 1:26PM [facility] DIVISION OF RADIOLOGY Radiology Study observation (narrative) [facility] No Panel InformationOrdered By: [facility] Provider on 07-11-2020 [facility] XR Lumbar spine 3 Viewson * [...] unremarkable in appearance. DIVISION OF RADIOLOGY Provider, Timbo Lopez - 07/11/2020 * * *Final Report* [...] the thoracolumbar spine. Postsurgical change. No complication. Legal Secretary: PSCB Transcribe Date/Time: Jul 11 2020 1:24P Dictated by : ISABELA ORTEZ MD This examination was interpreted and the report reviewed and electronically signed by: ISABELA ORTEZ MD on Jul 11 2020 1:26PM [facility] XR Thoracic spine AP and Lat eral [...] unremarkable in appearance. DIVISION OF RADIOLOGY Provider, [facility] - 07/11/2020 * * *Final Report* [...] the thoracolumbar spine. Postsurgical change. No complication. Legal Secretary: TAMIKO Transcribe Date/Time: Jul 11 2020 1:24P Dictated by : ISABELA ORTEZ MD This examination was interpreted and the report reviewed and electronically signed by: ISABELA ORTEZ MD on Jul 11 2020 1:26PM EST [facility] Vital Signs Date Time Vital Sign Value Performing Clinician Facility 01-14-2025 01:47-0400 Body temperature 98 [degF] Dr. Paulo Scott MD Work Phone: [phone] [place] [address] 01-14-2025 01:47-0400 Diastolic blood pressure 87 mm[Hg] Dr. Paulo Scott MD Work Phone: 5([phone] [place] [address] 01-14-2025 01:47-0400 Heart rate 75 /min Dr. Paulo Scott MD Work Phone: [phone] [place] [address] 01-14-2025 01:47-0400 Respiratory rate 18 /min Dr. Paulo Scott MD Work Phone: [phone] [place] [address] 01-14-2025 01:47-0400 SaO2% (BldA) [Mass fraction] 98 % Dr. Paulo Scott MD Work Phone: [phone] [place] [address] 01-14-2025 01:47-0400 Systolic blood pressure 146 mm[Hg] Dr. Paulo Scott MD Work Phone: [phone] [place] [address] 01-13-2025 23:17-0400 Body height 162.[address] Paulo Scott MD Work Phone: [phone] [place] [address] 01-13-2025 23:17-0400 Body mass index (BMI) [Ratio] 33.9 kg/m2 Dr. Paulo Scott MD Work Phone: 4(998)836-074743 [place] [address] 01-13-2025 23:17-0400 Body weight 89.[address] Paulo Scott MD Work Phone: 6(894)343-749243 [place] [address] 01-03-2025 15:44-0400 Heart rate 82 /min Dr. Paulo Scott MD Work Phone: 1(706)112-405343 [place] [address] 01-03-2025 15:44-0400 Respiratory rate 18 /min Dr. Paulo Scott MD Work Phone: 4(154)632-560743 [place] [address] 01-03-2025 14:41-0400 Inhaled oxygen flow rate 2 L/min Dr. Paulo Scott MD Work Phone: 9(624)427-657643 [place] [address] 01-03-2025 14:30-0400 Body temperature 97.3 [degF] Dr. Paulo Scott MD Work Phone: 0(132)520-344643 [place] [address] 01-03-2025 14:30-0400 Diastolic blood pressure 86 mm[Hg] Dr. Paulo Scott MD Work Phone: 1(298)655-242443 [place] [address] 01-03-2025 14:30-0400 SaO2% (BldA) [Mass fraction] 99 % Dr. Paulo Scott MD Work Phone: 8(719)843-330443 [place] [address] 01-03-2025 14:30-0400 Systolic blood pressure 126 mm[Hg] Dr. Paulo Scott MD Work Phone: 4(710)743-462143 [place] [address] 01-03-2025 08:52-0400 Body mass index (BMI) [Ratio] 34.1 kg/m2 Dr. Paulo Scott MD Work Phone: 4(421)707-569443 [place] [address] 01-03-2025 08:52-0400 Body weight 90.[address] Paulo Scott MD Work Phone: 2(653)785-433943 [place] [address] 12-30-2024 15:33-0400 Body height 162.[address] Paulo Scott MD Work Phone: 1(562)394-101643 [place] [address] 12-05-2024 16:16-0400 Body temperature 98.2 [degF] Dr. Paulo Scott MD Work Phone: 3(757)406-620543 [place] [address] 12-05-2024 16:16-0400 Diastolic blood pressure 81 mm[Hg] Dr. Paulo Scott MD Work Phone: 2(139)061-899543 [place] [address] 12-05-2024 16:16-0400 Heart rate 82 /min Dr. Paulo Scott MD Work Phone: 9(572)977-200743 [place] [address] 12-05-2024 16:16-0400 Respiratory rate 16 /min Dr. Pauol Scott MD Work Phone: 4(570)118-717643 [place] [address] 12-05-2024 16:16-0400 SaO2% (BldA) [Mass fraction] 96 % Dr. Paulo Scott MD Work Phone: 9(949)468-432143 [place] [address] 12-05-2024 16:16-0400 Systolic blood pressure 128 mm[Hg] Dr. Paulo Scott MD Work Phone: 9(197)024-920443 [place] [address] 12-05-2024 12:29-0400 Body height 162.[address] Paulo Scott MD Work Phone: 3(630)006-843943 [place] [address] 12-05-2024 12:29-0400 Body mass index (BMI) [Ratio] 36.5 kg/m2 Dr. Paulo Scott MD Work Phone: 2(705)442-554143 [place] [address] 12-05-2024 12:29-0400 Body weight 96.[address] Paulo Scott MD Work Phone: 1(890)842-074343 [place] [address] 10-15-2024 10:09-0400 Body height 162.[address] Paulo Scott MD Work Phone: 8(321)462-050643 [place] [address] 10-15-2024 10:09-0400 Body mass index (BMI) [Ratio] 35.2 kg/m2 Dr. Paulo Scott MD Work Phone: 9(547)214-631143 [place] [address] 10-15-2024 10:09-0400 Body weight 92.[address] Paulo Scott MD Work Phone: 3(425)052-292843 [place] [address] 10-15-2024 10:09-0400 Diastolic blood pressure 87 mm[Hg] Dr. Paulo Scott MD Work Phone: 6(065)978-210743 [place] [address] 10-15-2024 10:09-0400 Heart rate 73 /min Dr. Paulo Scott MD Work Phone: 4(804)755-763143 [place] [address] 10-15-2024 10:09-0400 Respiratory rate 18 /min Dr. Paulo Scott MD Work Phone: 7(033)770-517443 [place] [address] 10-15-2024 10:09-0400 SaO2% (BldA) [Mass fraction] 94 % Dr. Paulo Scott MD Work Phone: [facility] 10-15-2024 10:09-0400 Systolic blood pressure 128 mm[Hg] Dr. Paulo Scott MD Work Phone: [facility] 09-24-2024 10:50-0400 Diastolic blood pressure 78 mm[Hg] Norman Sumeet MANAGER [employer] Work Phone: [facility] 09-24-2024 10:50-0400 Systolic blood pressure 136 mm[Hg] Norman Sumeet MANAGER [employer] Work Phone: [facility] 09-24-2024 10:47-0400 Body mass index (BMI) [Ratio] 35.19 kg/m2 Norman Sumeet MANAGER [employer] Work Phone: [facility] 09-24-2024 10:47-0400 Body weight 93 kg Norman Sumeet MANAGER [employer] Work Phone: [facility] 09-24-2024 10:47-0400 Heart rate 77 /min Norman Sumeet MANAGER [employer] Work Phone: [facility] 09-24-2024 10:47-0400 Respiratory rate 16 /min Norman Sumeet MANAGER [employer] Work Phone: [facility] 08-22-2024 15:25-0400 Body mass index (BMI) [Ratio] 36.3 kg/m2 Dr. Paulo Scott MD Work Phone: [facility] 08-22-2024 15:25-0400 Body weight 96.[address] Paulo Scott MD Work Phone: 6(058)182-585768 [place] [address] 08-22-2024 15:18-0400 Body height 162.[address] Paulo Scott MD Work Phone: 6(129)725-049368 [place] [address] 08-22-2024 15:18-0400 Body temperature 98.4 [degF] Dr. Paulo Scott MD Work Phone: 3(210)014-445968 [place] [address] 08-22-2024 15:18-0400 Diastolic blood pressure 77 mm[Hg] Dr. Paulo Scott MD Work Phone: [facility] 08-22-2024 15:18-0400 Heart rate 78 /min Dr. Paulo Scott MD Work Phone: [facility] 08-22-2024 15:18-0400 Respiratory rate 17 /min Dr. Paulo Scott MD Work Phone: [facility] 08-22-2024 15:18-0400 SaO2% (BldA) [Mass fraction] 97 % Dr. Paulo Scott MD Work Phone: [facility] 08-22-2024 15:18-0400 Systolic blood pressure 154 mm[Hg] Dr. Paulo Scott MD Work Phone: [facility] 05-21-2024 13:40-0500 Body mass index (BMI) [Ratio] 34.81 kg/m2 Juan Rodriguez MANAGER [employer] Work Phone: [facility] 05-21-2024 13:40-0500 Body weight 92 kg Juan Rodriguez MANAGER [employer] Work Phone: [facility] 05-21-2024 13:40-0500 Diastolic blood pressure 82 mm[Hg] Juan Rodriguez MANAGER [employer] Work Phone: [facility] 05-21-2024 13:40-0500 Heart rate 76 /min Juan Rodriguez MANAGER [employer] Work Phone: [facility] 05-21-2024 13:40-0500 Respiratory rate 16 /min Juan Rodriguez MANAGER [employer] Work Phone: [facility] 05-21-2024 13:40-0500 Systolic blood pressure 128 mm[Hg] Juan Rodriguez MANAGER [employer]P Work Phone: [facility] 04-08-2024 11:36-0500 Diastolic blood pressure 84 mm[Hg] Dr. Paulo Scott MD Work Phone: [facility] 04-08-2024 11:36-0500 Heart rate 78 /min Dr. Paulo Scott MD Work Phone: 9(232)559-287868 [place] [address] 04-08-2024 11:36-0500 Respiratory rate 18 /min Dr. Paulo Scott MD Work Phone: 9(417)611-924243 [place] [address] 04-08-2024 11:36-0500 SaO2% (BldA) [Mass fraction] 96 % Dr. Paulo Scott MD Work Phone: 2(291)474-251743 [place] [address] 04-08-2024 11:36-0500 Systolic blood pressure 168 mm[Hg] Dr. Paulo Scott MD Work Phone: 3(665)349-617643 [place] [address] 04-08-2024 09:50-0500 Body height 162.[address] Paulo Scott MD Work Phone: 1(618)325-843643 [place] [address] 04-08-2024 09:50-0500 Body mass index (BMI) [Ratio] 34.3 kg/m2 Dr. Paulo Scott MD Work Phone: 6(691)674-894943 [place] [address] 04-08-2024 09:50-0500 Body weight 90.[address] Paulo Scott MD Work Phone: 4(988)122-345143 [place] [address] 03-12-2024 10:36-0500 Body mass index (BMI) [Ratio] 34.8 kg/m2 Dr. Paulo Scott MD Work Phone: 9(530)828-733468 [place] [address] 03-12-2024 10:36-0500 Body weight 92.[address] Paulo Scott MD Work Phone: 3(063)675-756343 [place] [address] 01-23-2024 13:14-0500 Body mass index (BMI) [Ratio] 34.21 kg/m2 Norman Sumeet MANAGER [employer] Work Phone: [facility] 01-23-2024 13:14-0500 Body temperature 97 [degF] Norman Pyler MANAGER [employer] Work Phone: [facility] 01-23-2024 13:14-0500 Body weight 90.4 kg Norman Garcia MANAGER [employer] Work Phone: [facility] 01-23-2024 13:14-0500 Diastolic blood pressure 78 mm[Hg] Norman Sumeet MANAGER [employer] Work Phone: [facility] 01-23-2024 13:14-0500 Heart rate 80 /min Norman Sumeet MANAGER [employer] Work Phone: [facility] 01-23-2024 13:14-0500 SaO2% (BldA) [Mass fraction] 97 % Norman Sumeet MANAGER [employer] Work Phone: [facility] 01-23-2024 13:14-0500 Systolic blood pressure 128 mm[Hg] Norman Sumeet MANAGER [employer] Work Phone: [facility] 10-17-2023 10:10-0400 Body height 162.6 cm Juan Rodriguez MANAGER [employer] Work Phone: [facility] 10-17-2023 10:10-0400 Body mass index (BMI) [Ratio] 33.04 kg/m2 Juan Rodriguez MANAGER [employer] Work Phone: [facility] 10-17-2023 10:10-0400 Body weight 87.3 kg Juan Rodriguez MANAGER [employer] Work Phone: [facility] 10-17-2023 10:10-0400 Diastolic blood pressure 66 mm[Hg] Juan Rodriguez MANAGER [employer] Work Phone: [facility] 10-17-2023 10:10-0400 Heart rate 83 /min Juan Rodriguez MANAGER [employer] Work Phone: [facility] 10-17-2023 10:10-0400 Respiratory rate 14 /min Juan Rodriguez MANAGER [employer] Work Phone: [facility] 10-17-2023 10:10-0400 SaO2% (BldA) [Mass fraction] 95 % Juan Rodriguez MANAGER [employer] Work Phone: [facility] 10-17-2023 10:10-0400 Systolic blood pressure 128 mm[Hg] Juan Rodriguez MANAGER [employer] Work Phone: [facility] 09-17-2023 13:45-0400 Body mass index (BMI) [Ratio] 32.79 kg/m2 Paulo Scott MD Work Phone: [facility] 09-17-2023 13:45-0400 Body temperature 98.4 [degF] Paulo Scott MD Work Phone: [facility] 09-17-2023 13:45-0400 Body weight 86.64 kg Paulo Scott MD Work Phone: [facility] 09-17-2023 13:45-0400 Diastolic blood pressure 78 mm[Hg] Paulo Scott MD Work Phone: [facility] 09-17-2023 13:45-0400 Heart rate 87 /min Paulo Scott MD Work Phone: [facility] 09-17-2023 13:45-0400 Respiratory rate 18 /min Paulo Scott MD Work Phone: [facility] 09-17-2023 13:45-0400 SaO2% (BldA) [Mass fraction] 97 % Paulo Scott MD Work Phone: [facility] 09-17-2023 13:45-0400 Systolic blood pressure 128 mm[Hg] Paulo Scott MD Work Phone: [facility] 07-22-2023 16:17-0400 Body mass index (BMI) [Ratio] 33 kg/m2 Krislyn Aberegg PA Work Phone: [facility] 07-22-2023 16:17-0400 Body temperature 99.19 [degF] Krislyn Aberegg PA Work Phone: [facility] 07-22-2023 16:17-0400 Body weight 87.2 kg Krislyn Aberegg PA Work Phone: [facility] 07-22-2023 16:17-0400 Diastolic blood pressure 90 mm[Hg] Krislyn Aberegg PA Work Phone: [facility] 07-22-2023 16:17-0400 Heart rate 102 /min Krislyn Aberegg PA Work Phone: [facility] 07-22-2023 16:17-0400 Respiratory rate 18 /min Krislyn Aberegg PA Work Phone: [facility] 07-22-2023 16:17-0400 SaO2% (BldA) [Mass fraction] 96 % Krislyn Aberegg PA Work Phone: [facility] 07-22-2023 16:17-0400 Systolic blood pressure 144 mm[Hg] Krislyn Aberegg PA Work Phone: [facility] 07-04-2023 10:56-0400 Body height 162.6 cm Norman Sumeet MANAGER [employer] Work Phone: [facility] 07-04-2023 10:56-0400 Body temperature 98.91 [degF] Norman Sumeet MANAGER [employer] Work Phone: [facility] 07-04-2023 10:56-0400 Body weight 85.28 kg Norman Sumeet MANAGER [employer] Work Phone: [facility] 07-04-2023 10:56-0400 Diastolic blood pressure 70 mm[Hg] Norman Sumeet MANAGER [employer] Work Phone: [facility] 07-04-2023 10:56-0400 Heart rate 88 /min Norman Sumeet MANAGER [employer] Work Phone: [facility] 07-04-2023 10:56-0400 Respiratory rate 14 /min Norman Sumeet MANAGER [employer] Work Phone: [facility] 07-04-2023 10:56-0400 SaO2% (BldA) [Mass fraction] 96 % Norman Sumeet MANAGER [employer] Work Phone: [facility] 07-04-2023 10:56-0400 Systolic blood pressure 136 mm[Hg] Norman Sumeet MANAGER [employer] Work Phone: 2(487)384-854043 [place] [address] 06-19-2023 14:00-0400 Body temperature 97.6 [degF] Dr. Paulo Scott Work Phone: 6(064)029-841168 [place] [address] 06-19-2023 14:00-0400 Diastolic blood pressure 66 mm[Hg] Dr. Paulo Scott Work Phone: 3(994)375-853568 [place] [address] 06-19-2023 14:00-0400 Heart rate 78 /min Dr. Paulo Scott Work Phone: 1(621)937-106468 [place] [address] 06-19-2023 14:00-0400 Respiratory rate 16 /min Dr. Paulo Scott Work Phone: 7(141)903-368643 [place] [address] 06-19-2023 14:00-0400 SaO2% (BldA) [Mass fraction] 99 % Dr. Paulo Scott Work Phone: 1(999)144-910843 [place] [address] 06-19-2023 14:00-0400 Systolic blood pressure 130 mm[Hg] Dr. Paulo Scott Work Phone: 2(387)629-871643 [place] [address] 06-19-2023 12:33-0400 Body height 162.[address] Paulo Scott Work Phone: 6(193)539-181043 [place] [address] 04-23-2023 09:17-0500 Body temperature 98.1 [degF] Dr. Paulo Scott Work Phone: 8(053)401-383043 [place] [address] 04-23-2023 09:17-0500 Diastolic blood pressure 74 mm[Hg] Dr. Paulo Scott Work Phone: 9(564)090-013068 [place] [address] 04-23-2023 09:17-0500 Heart rate 64 /min Dr. Paulo Scott Work Phone: 6(346)731-130843 [place] [address] 04-23-2023 09:17-0500 Respiratory rate 18 /min Dr. Paulo Scott Work Phone: 5(839)074-758343 [place] [address] 04-23-2023 09:17-0500 SaO2% (BldA) [Mass fraction] 94 % Dr. Paulo Scott Work Phone: 3(945)383-700768 [place] [address] 04-23-2023 09:17-0500 Systolic blood pressure 117 mm[Hg] Dr. Paulo Scott Work Phone: 5(332)796-434243 [place] [address] 04-23-2023 07:37-0500 Body height 162.[address] Paulo Scott Work Phone: 1(209)681-729643 [place] [address] 04-23-2023 07:37-0500 Body mass index (BMI) [Ratio] 32.5 kg/m2 Dr. Paulo Scott Work Phone: 0(920)907-837343 [place] [address] 04-23-2023 07:37-0500 Body weight [address] Paulo Scott Work Phone: 7(878)294-723643 [place] [address] 04-14-2023 07:13-0500 Body mass index (BMI) [Ratio] 31.9 kg/m2 Dr. Paulo Scott Work Phone: 6(062)448-170943 [place] [address] 04-14-2023 07:13-0500 Body temperature 98 [degF] Dr. Paulo Scott Work Phone: 8(033)871-961243 [place] [address] 04-14-2023 07:13-0500 Body weight 84.[address] Paulo Scott Work Phone: 5(244)298-192843 [place] [address] 04-14-2023 07:13-0500 Diastolic blood pressure 92 mm[Hg] Dr. Paulo Scott Work Phone: 1(674)856-765768 [place] [address] 04-14-2023 07:13-0500 Heart rate 84 /min Dr. Paulo Scott Work Phone: 7(464)359-785543 [place] [address] 04-14-2023 07:13-0500 Respiratory rate 20 /min Dr. Paulo Scott Work Phone: 6(624)825-934668 [place] [address] 04-14-2023 07:13-0500 SaO2% (BldA) [Mass fraction] 94 % Dr. Paulo Scott Work Phone: 1(555)496-576943 [place] [address] 04-14-2023 07:13-0500 Systolic blood pressure 140 mm[Hg] Dr. Paulo Scott Work Phone: [facility] 02-21-2023 14:03-0500 Body height 162.6 cm Juan Rodriguez MANAGER [employer] Work Phone: [facility] 02-21-2023 14:03-0500 Body weight 87.09 kg Juan Rodriguez MANAGER [employer] Work Phone: [facility] 02-21-2023 14:03-0500 Diastolic blood pressure 74 mm[Hg] Juan Rodriguez MANAGER [employer] Work Phone: [facility] 02-21-2023 14:03-0500 Heart rate 81 /min Juan Rodriguez MANAGER [employer] Work Phone: [facility] 02-21-2023 14:03-0500 SaO2% (BldA) [Mass fraction] 97 % [facility] MANAGER [employer]P Work Phone: [facility] 02-21-2023 14:03-0500 Systolic blood pressure 128 mm[Hg] Juan Rodriguez MANAGER [employer] Work Phone: [facility] 01-31-2023 14:47-0500 Body mass index (BMI) [Ratio] 32.4 kg/m2 Dr. Paulo Scott Work Phone: [facility] 01-31-2023 14:47-0500 Body weight 85.[address] Paulo Scott Work Phone: [facility] 01-31-2023 14:47-0500 Diastolic blood pressure 84 mm[Hg] Dr. Paulo Scott Work Phone: [facility] 01-31-2023 14:47-0500 Heart rate 78 /min Dr. Paulo Scott Work Phone: [facility] 01-31-2023 14:47-0500 Respiratory rate 18 /min Dr. Paulo Scott Work Phone: [facility] 01-31-2023 14:47-0500 SaO2% (BldA) [Mass fraction] 93 % Dr. Paulo Scott Work Phone: 9(938)692-563868 [place] [address] 01-31-2023 14:47-0500 Systolic blood pressure 134 mm[Hg] Dr. Paulo Scott Work Phone: 8(369)943-598543 [place] [address] 10-02-2022 12:52-0400 Body height 162.[address] Paulo Scott Work Phone: 0(933)732-455443 [place] [address] 10-02-2022 12:52-0400 Body mass index (BMI) [Ratio] 32.5 kg/m2 Dr. Paulo Scott Work Phone: 2(777)902-698443 [place] [address] 10-02-2022 12:52-0400 Body temperature 97.6 [degF] Dr. Paulo Scott Work Phone: 3(771)134-043743 [place] [address] 10-02-2022 12:52-0400 Body weight 86.[address] Paulo Scott Work Phone: 5(719)609-723743 [place] [address] 10-02-2022 12:52-0400 Diastolic blood pressure 80 mm[Hg] Dr. Paulo Scott Work Phone: 8(835)907-989443 [place] [address] 10-02-2022 12:52-0400 Heart rate 70 /min Dr. Paulo Scott Work Phone: 2(635)889-813943 [place] [address] 10-02-2022 12:52-0400 Respiratory rate 18 /min Dr. Paulo Scott Work Phone: 6(237)849-169643 [place] [address] 10-02-2022 12:52-0400 SaO2% (BldA) [Mass fraction] 97 % Dr. Paulo Scott Work Phone: 9(594)309-985143 [place] [address] 10-02-2022 12:52-0400 Systolic blood pressure 140 mm[Hg] Dr. Paulo Scott Work Phone: 7(966)694-231643 [place] [address] 09-19-2022 15:43-0400 Body temperature 97.3 [degF] Ryan Chicas MD Work Phone: 8(552)060-880912 [place] [address] 09-19-2022 15:43-0400 Body weight 88.45 kg Ryan Chicas MD Work Phone: [facility] 09-19-2022 15:43-0400 Diastolic blood pressure 82 mm[Hg] Ryan Chicas MD Work Phone: [facility] 09-19-2022 15:43-0400 Heart rate 85 /min Ryan Chicas MD Work Phone: [facility] 09-19-2022 15:43-0400 Respiratory rate 16 /min Ryan Chicas MD Work Phone: [facility] 09-19-2022 15:43-0400 SaO2% (BldA) [Mass fraction] 97 % Ryan Chicas MD Work Phone: [facility] 09-19-2022 15:43-0400 Systolic blood pressure 128 mm[Hg] Ryan Chicas MD Work Phone: [facility] 08-05-2022 16:22-0400 Diastolic blood pressure 75 mm[Hg] Dr. Paulo Scott Work Phone: [facility] 08-05-2022 16:22-0400 Heart rate 85 /min Dr. Paulo Scott Work Phone: [facility] 08-05-2022 16:22-0400 Respiratory rate 16 /min Dr. Paulo Scott Work Phone: [facility] 08-05-2022 16:22-0400 SaO2% (BldA) [Mass fraction] 93 % Dr. Paulo Scott Work Phone: [facility] 08-05-2022 16:22-0400 Systolic blood pressure 130 mm[Hg] Dr. Paulo Scott Work Phone: [facility] 08-05-2022 11:31-0400 Body mass index (BMI) [Ratio] 33.3 kg/m2 Dr. Paulo Scott Work Phone: [facility] 08-05-2022 11:31-0400 Body temperature 97.9 [degF] Dr. Paulo Scott Work Phone: [facility] 08-05-2022 11:31-0400 Body weight 87.[address] Paulo Scott Work Phone: [facility] 07-26-2022 13:53-0400 Body mass index (BMI) [Ratio] 33.3 kg/m2 Dr. Paulo Scott Work Phone: [facility] 07-26-2022 13:53-0400 Body weight 87.[address] Paulo Scott Work Phone: [facility] 07-26-2022 13:53-0400 Diastolic blood pressure 85 mm[Hg] Dr. Paulo Scott Work Phone: [facility] 07-26-2022 13:53-0400 Heart rate 70 /min Dr. Paulo Scott Work Phone: [facility] 07-26-2022 13:53-0400 Respiratory rate 16 /min Dr. Paulo Scott Work Phone: [facility] 07-26-2022 13:53-0400 Systolic blood pressure 147 mm[Hg] Dr. Paulo Scott Work Phone: [facility] 05-17-2022 14:48-0500 Body temperature 98.71 [degF] Paulo Scott MD Work Phone: [facility] 05-17-2022 14:48-0500 Body weight 88 kg Paulo Scott MD Work Phone: [facility] 05-17-2022 14:48-0500 Diastolic blood pressure 82 mm[Hg] Paulo Scott MD Work Phone: [facility] 05-17-2022 14:48-0500 Heart rate 83 /min Paulo Scott MD Work Phone: [facility] 05-17-2022 14:48-0500 Respiratory rate 18 /min Paulo Scott MD Work Phone: [facility] 05-17-2022 14:48-0500 SaO2% (BldA) [Mass fraction] 97 % Paulo Scott MD Work Phone: [facility] 05-17-2022 14:48-0500 Systolic blood pressure 136 mm[Hg] Paulo Scott MD Work Phone: [facility] 05-06-2022 14:28-0500 Body temperature 98.3 [degF] Dr. Paulo Scott Work Phone: [facility] 05-06-2022 14:28-0500 Diastolic blood pressure 70 mm[Hg] Dr. Paulo Scott Work Phone: [facility] 05-06-2022 14:28-0500 Heart rate 68 /min Dr. Paulo Scott Work Phone: [facility] 05-06-2022 14:28-0500 Inhaled oxygen flow rate 98 L/min Dr. Paulo Scott Work Phone: [facility] 05-06-2022 14:28-0500 Respiratory rate 18 /min Dr. Paulo Scott Work Phone: [facility] 05-06-2022 14:28-0500 SaO2% (BldA) [Mass fraction] 98 % Dr. Paulo Scott Work Phone: [facility] 05-06-2022 14:28-0500 Systolic blood pressure 124 mm[Hg] Dr. Paulo Scott Work Phone: [facility] 05-06-2022 04:35-0500 Body weight 89.[address] Paulo Scott Work Phone: [facility] 05-05-2022 19:36-0500 Body height 162.[address] Paulo Scott Work Phone: [facility] 05-05-2022 19:36-0500 Body mass index (BMI) [Ratio] 34.3 kg/m2 Dr. Paulo Scott Work Phone: [facility] 05-05-2022 19:00-0500 Heart rate 87 /min Dr. Paulo Scott Work Phone: [facility] 05-05-2022 17:42-0500 Body temperature 98.7 [degF] Dr. Paulo Scott Work Phone: [facility] 05-05-2022 17:42-0500 Diastolic blood pressure 77 mm[Hg] Dr. Paulo Scott Work Phone: [facility] 05-05-2022 17:42-0500 Respiratory rate 18 /min Dr. Paulo Scott Work Phone: [facility] 05-05-2022 17:42-0500 SaO2% (BldA) [Mass fraction] 100 % Dr. Paulo Scott Work Phone: [facility] 05-05-2022 17:42-0500 Systolic blood pressure 133 mm[Hg] Dr. Paulo Scott Work Phone: [facility] 05-05-2022 12:41-0500 Body height 162.[address] Paulo Scott Work Phone: [facility] 05-05-2022 12:41-0500 Body mass index (BMI) [Ratio] 33.3 kg/m2 Dr. Paulo Scott Work Phone: [facility] 05-05-2022 12:41-0500 Body weight 87.[address] Paulo Scott Work Phone: [facility] 04-26-2022 09:36-0500 Body weight 88 kg Juan Rodriguez APRN.COLLECTIONS REP Work Phone: [facility] 04-26-2022 09:36-0500 Diastolic blood pressure 82 mm[Hg] Juan Rodriguez APRN.COLLECTIONS REP Work Phone: [facility] 04-26-2022 09:36-0500 Heart rate 80 /min Juan Rodriguez APRN.COLLECTIONS REP Work Phone: [facility] 04-26-2022 09:36-0500 Respiratory rate 16 /min Juan Casass MANAGER [employer] Work Phone: [facility] 04-26-2022 09:36-0500 Systolic blood pressure 126 mm[Hg] Juanregi Rodriguez APRN.COLLECTIONS REP Work Phone: [facility] 04-24-2022 19:56-0500 Diastolic blood pressure 90 mm[Hg] Dr. Paulo Scott Work Phone: [facility] 04-24-2022 19:56-0500 Heart rate 61 /min Dr. Paulo Scott Work Phone: [facility] 04-24-2022 19:56-0500 Respiratory rate 17 /min Dr. Paulo Scott Work Phone: [facility] 04-24-2022 19:56-0500 SaO2% (BldA) [Mass fraction] 97 % Dr. Paulo Scott Work Phone: [facility] 04-24-2022 19:56-0500 Systolic blood pressure 158 mm[Hg] Dr. Paulo Scott Work Phone: [facility] 04-24-2022 14:37-0500 Body height 162.[address] Paulo Scott Work Phone: [facility] 04-24-2022 14:37-0500 Body mass index (BMI) [Ratio] 34.3 kg/m2 Dr. Paulo Scott Work Phone: [facility] 04-24-2022 14:37-0500 Body temperature 98.3 [degF] Dr. Paulo Scott Work Phone: 7(951)922-785868 [place] [address] 04-24-2022 14:37-0500 Body weight 90.[address] Paulo Scott Work Phone: [facility] 04-03-2022 06:25-0500 Body mass index (BMI) [Ratio] 33.6 kg/m2 Dr. Paulo Scott Work Phone: [facility] 04-03-2022 06:25-0500 Body temperature 98.1 [degF] Dr. Paulo Scott Work Phone: 6(271)970-412743 [place] [address] 04-03-2022 06:25-0500 Body weight 88.[address] Paulo Scott Work Phone: 6(585)880-202668 [place] [address] 04-03-2022 06:25-0500 Diastolic blood pressure 73 mm[Hg] Dr. Paulo Scott Work Phone: 2(399)177-214043 [place] [address] 04-03-2022 06:25-0500 Heart rate 78 /min Dr. Paulo Scott Work Phone: 3(175)110-271943 [place] [address] 04-03-2022 06:25-0500 Respiratory rate 16 /min Dr. Paulo Scott Work Phone: 1(159)820-761443 [place] [address] 04-03-2022 06:25-0500 SaO2% (BldA) [Mass fraction] 94 % Dr. Paulo Scott Work Phone: 3(262)724-992643 [place] [address] 04-03-2022 06:25-0500 Systolic blood pressure 126 mm[Hg] Dr. Paulo Scott Work Phone: 0(710)835-274543 [place] [address] 09-18-2021 11:55-0400 Body height 162.[address] Paulo Scott Work Phone: [facility] Work Phone: 09-18-2021 11:55-0400 Body mass index (BMI) [Ratio] 33.3 kg/m2 Dr. Paulo Scott Work Phone: [facility] Work Phone: 09-18-2021 11:55-0400 Body temperature 98.7 [degF] Dr. Paulo Scott Work Phone: [facility] Work Phone: 09-18-2021 11:55-0400 Body weight 87.[address] Paulo Scott Work Phone: [facility] Work Phone: 09-18-2021 11:55-0400 Diastolic blood pressure 83 mm[Hg] Dr. Paulo Scott Work Phone: [facility] Work Phone: 09-18-2021 11:55-0400 Heart rate 81 /min Dr. Paulo Scott Work Phone: [facility] Work Phone: 09-18-2021 11:55-0400 Respiratory rate 16 /min Dr. Paulo Scott Work Phone: [facility] Work Phone: 09-18-2021 11:55-0400 SaO2% (BldA) [Mass fraction] 96 % Dr. Paulo Scott Work Phone: [facility] Work Phone: 09-18-2021 11:55-0400 Systolic blood pressure 140 mm[Hg] Dr. Paulo Scott Work Phone: [facility] Work Phone: 08-23-2021 16:52-0400 Body weight 87.73 kg Paulo Scott MD Work Phone: [facility] 08-23-2021 16:52-0400 Diastolic blood pressure 74 mm[Hg] Paulo Scott MD Work Phone: [facility] 08-23-2021 16:52-0400 Heart rate 75 /min Paulo Scott MD Work Phone: [facility] 08-23-2021 16:52-0400 Respiratory rate 16 /min Paulo Scott MD Work Phone: [facility] 08-23-2021 16:52-0400 SaO2% (BldA) [Mass fraction] 99 % Paulo Scott MD Work Phone: [facility] 08-23-2021 16:52-0400 Systolic blood pressure 126 mm[Hg] Paulo Scott MD Work Phone: [facility] 08-06-2021 10:38-0400 Body mass index (BMI) [Ratio] 33.5 kg/m2 Dr. Paulo Scott Work Phone: [facility] Work Phone: 08-06-2021 10:38-0400 Body temperature 97.2 [degF] Dr. Paulo Scott Work Phone: [facility] Work Phone: 08-06-2021 10:38-0400 Body weight 88.[address] Paulo Scott Work Phone: [facility] Work Phone: 08-06-2021 10:38-0400 Diastolic blood pressure 79 mm[Hg] Dr. Paulo Scott Work Phone: [facility] Work Phone: 08-06-2021 10:38-0400 Heart rate 79 /min Dr. Paulo Scott Work Phone: [facility] Work Phone: 08-06-2021 10:38-0400 Respiratory rate 16 /min Dr. Paulo Scott Work Phone: [facility] Work Phone: 08-06-2021 10:38-0400 SaO2% (BldA) [Mass fraction] 94 % Dr. Paulo Scott Work Phone: [facility] Work Phone: 08-06-2021 10:38-0400 Systolic blood pressure 122 mm[Hg] Dr. Paulo Scott Work Phone: [facility] Work Phone: Encounters Encounter Date Encounter Type Care Provider Facility Start: 01-24-2025 ambulatory Seymour HALE Facility:[facility] Start: 01-21-2025 End: 01-21-2025 ambulatory [facility] Facility:[facility] Start: 01-17-2025 ambulatory [facility] Facili ty:[facility] Start: 01-13-2025 End: 01-14-2025 Emergency department patient visit [facility] Facility:[facility] Start: 01-13-2025 ambulatory Paulo D Talampas Facilit y:[facility] Start: 01-11-2025 ambulatory Paulo D [place] Facilit y:[facility] Start: 01-04-2025 ambulatory Paulo D Talamp[place] Facilit y:[facility] Start: 01-04-2025 [facility] MD Chirinos Jorge Javier Start: 01-03-2025 Dr. Clifton Lynn and MD [facility] Work Phone: Start: 01-02-2025 Dr. Clifton Lynn and MD [facility] Work Phone: Start: 01-01-2025 Dr. Clifton Lynn and MD [facility] Work Phone: Start: 12-31-2024 Dr. Keshav Elizondo MD [facility] Work Phone: Start: 12-30-2024 Raul [facility] Start: 12-30-2024 ambulatory Paulo D [place]amp[place] Facilit y:[facility] Start: [facility]-30[facility]2024 [facility] Start: 12-30-2024 Dr. Keshav [facility] Work Phone: Start: 12-29-2024 [facility] Work Phone: Start: 12-28-2024 ambulatory Paulo D [place]amp[place] Facilit y:[facility] Start: 12-28-2024 [facility] Start: 12-28-2024 Dr. Keshav [facility] Work Phone: Start: 12-28-2024 Dr. Julian Paul MD -[facility] Work Phone: Start: 12-27-2024 Raul Casper DO -[facility] Start: 12-27-2024 ambulatory Paulo Scott Facilit y:[facility] Start: 12-27-2024 End: 01-03-2025 Evaluation and management of inpatient Dr. Paulo Scott MD Work Phone: -Progressive Care Unit Start: 12-27-2024 End: 01-03-2025 Dr. Clifton Wells MD -[facility] Work Phone: Start: 12-17-2024 End: 12-17-2024 Patient encounter procedure Adelina CASTANEDA -[facility] Work Phone: Start: 12-17-2024 End: 12-17-2024 Adelina CASTANEDA -[facility] Work Phone: Start: 12-17-2024 End: 12-17-[address] Paulo Scott MD Work Phone: -[facility] Start: 12-06-2024 End: 12-06-2024 ambulatory PAULO SCOTT Facility:[facility] Start: 12-05-2024 End: 12-05-2024 Dr. [facility] Work [facility] Start: 12-05-2024 End: 12-05-2024 Emergency department patient visit Dr. Shanika Galicia MD -Emergency Department Work Phone: Start: 11-30-2024 End: 12-01-2024 Refill Paulo Scott MD Work Phone: [facility] [place] Comment on above: Refill Request Start: 11-29-2024 End: 11-30-2024 Refill Juan Rodriguez APRN.CNS Work Phone: [facility] [place] Comment on above: Refill Request Start: 10-31-2024 End: 11-01-2024 Refill Paulo Scott MD Work Phone: [facility] [place] Comment on above: Refill Request Start: 10-15-2024 End: 10-15-2024 Patient encounter procedure Gina Mary [facility] Work Phone: Start: 10-15-2024 End: 10-15-2024 Gina Mary [facility] Work Phone: Start: 10-15-2024 End: 10-15-[address] Paulo Scott MD Work Phone: [facility] Start: 09-29-2024 End: 10-04-2024 ambulatory Paulo Scott MD Work Phone: Internal [place] [phone] Start: 09-28-2024 End: 11-28-2024 Follow-up encounter Norman Garcia APRN.POCKET CREASER Work Phone: [facility] Start: 09-24-2024 End: 09-24-2024 Patient encounter procedure Norman Garcia APRN.POCKET CREASER Work Phone: [facility] Comment on above: Diet-controlled diab etes mellitus (HCC) (Primary Dx); Essential hypertension; Mixed hyperlipidemia; Acquired hypothyroidism; Obesity, Class II, BMI 35-39.9; Encounter for therapeutic drug monitoring; Vitamin D deficiency; Anxiety; Bursitis of other bursa of left hip Start: 09-24-2024 End: 09-24-2024 ambulatory NORMAN GARCIA Facility:[facility] Start: 08-31-2024 End: 08-31-2024 Refill Paulo Scott MD Work Phone: [facility] Comment on above: Refill Request; Medi cation Problem (Patient almost out) Start: 08-27-2024 End: 08-30-2024 Patient Msg Paulo Scott MD Work Phone: [facility] [place] Comment on above: A Message About Your Refill Request Start: 08-26-2024 End: 08-30-2024 Refill Paulo Scott MD Work Phone: [facility] Comment on above: Refill Request Start: 08-25-2024 End: 08-25-2024 Telephone encounter Paulo Scott MD Work Phone: [facility] [place] Comment on above: Medication Problem Start: 08-22-2024 End: 08-22-2024 Emergency department patient visit Dr. Paulo Scott MD Work Phone: -Emergency Department Work Phone: Start: 06-18-2024 End: 06-18-2024 Patient encounter procedure Raul Casper [facility][1] Gastroenterology Work Phone: Start: 06-18-2024 End: 06-18-2024 ambulatory Paulo Scott Facility[facility] Start: 06-18-2024 End: 06-18-[address] Callum Trimble DO [facility] Work Phone: Start: 06-18-2024 End: 06-18-2024 ambulatory Paulo Scott Facility:[facility] Start: 05-26-2024 End: 05-26-[address] Paulo Scott MD Work Phone: [facility] Work Phone: Start: 05-26-2024 End: 05-26-[address] Crystal Paz MD -Radiology, [facility] Work Phone: Start: 05-26-2024 End: 05-26-2024 ambulatory Paulo Scott Facility:[facility] Start: 05-21-2024 End: 05-21-2024 ambulatory [facility] Facility:[facility] Start: 05-21-2024 End: 05-21-2024 Office outpatient visit 25 minutes Juan Casass MANAGER CAR.COLLECTIONS REP Work Phone: [facility] [place] Comment on above: Acquired hypothyroid ism (Primary Dx); Primary hypertension; Mixed hyperlipidemia; Chronic pain of left knee; Chronic bilateral low back pain with bilateral sciatica; Encounter for immunization Start: 04-16-2024 End: 04-16-[address] Callum Trimble DO [facility] Work Phone: Start: 04-16-2024 End: 04-16-2024 ambulatory Paulo D [place]as Facility:[facility] Start: 04-09-2024 End: 04-09-[address] Callum Trimble [facility][1[facility] Work Phone: Start: 04-09-2024 End: 04-09-2024 ambulatory Paulo D [place] Facility:[facility] Start: 04-08-2024 End: 04-08-2024 Patient encounter procedure Raul Casper [facility] Work Phone: Start: 04-08-2024 End: 04-08-2024 ambulatory Paulo D [place] Facility:[facility] Start: 04-02-2024 End: 04-02-[address] Callum Trimble [facility] Work Phone: Start: 04-02-2024 End: 04-02-2024 ambulatory Paulo D [place] Facility:[facility] Start: 03-12-2024 End: 03-12-[address] Callum Trimble [facility] Work Phone: Start: 03-12-2024 End: 03-12-2024 ambulatory Paulo D [place] Facility:[facility] Start: 03-05-2024 End: 03-05-2024 ambulatory PAULO D TALAMPAS Facility:[facility] Start: 03-05-2024 End: 03-05-2024 Subsequent hospital visit by physician Screen Mammo [facility] Comment on above: Encounter for screen ing mammogram for breast cancer [Z12.31] Start: 02-22-2024 End: 02-27-2024 Refill Paulo Scott MD Work Phone: [facility] Comment on above: Refill Request Start: 02-20-2024 End: 02-20-2024 Patient encounter procedure Raul Casper [facility][1] Gastroenterology Work Phone: Start: 02-20-2024 End: 02-20-2024 Refill Juan Rodriguez APRN.COLLECTIONS REP Work Phone: [facility] [place] Comment on above: Refill Request Start: 02-11-2024 End: 02-11-2024 Refill Paulo Scott MD Work Phone: [facility] [place] Comment on above: Refill Request Start: 01-30-2024 End: 01-30-2024 ambulatory Paulo Scott Facility:[facility] Start: 01-23-2024 End: 01-23-2024 Patient encounter procedure Norman Garcia MANAGER CAR.POCKET CREASER Work Phone: [facility] [place] Comment on above: Acute cough (Primary Dx); Acquired hypothyroidism; Spinal stenosis of lumbar region, unspecified whether neurogenic claudication present; Primary hypertension; Mixed hyperlipidemia; Vitamin D deficiency; Diet-controlled diabetes mellitus (HCC); Screening for depression Start: 12-24-2023 End: 12-24-2023 Refill Paulo Scott MD Work Phone: [facility] [place] Comment on above: Refill Request Start: 11-11-2023 End: 11-11-2023 Refill Paulo Scott MD Work Phone: [facility] [place] Comment on above: Refill Request Start: 10-17-2023 Telephone encounter Paulo hardwick MD Work Phone: [facility] [place] Comment on above: Future Appointment Start: 10-17-2023 End: 10-17-2023 Office outpatient visit 15 minutes Juan Rodriguez APRN.COLLECTIONS REP Work Phone: [facility] [place] Comment on above: External hemorrhoid (Primary Dx) Start: 10-15-2023 ambulatory Paulo lockett MD Work Phone: Internal [facility] [place] Start: 09-22-2023 Telephone encounter Paulo hardwick MD Work Phone: [facility] [place] Comment on above: Medication Problem Start: 09-17-2023 End: 09-17-2023 Office outpatient visit 25 minutes Paulo Scott MD Work Phone: [facility] [place] Comment on above: DDD (degenerative di sc disease), lumbar (Primary Dx); Protrusion of lumbar intervertebral disc; Spinal stenosis of lumbar region, unspecified whether neurogenic claudication present; Vertigo; Anxiety; Primary hypertension; Mixed hyperlipidemia; Vitamin D deficiency; IFG (impaired fasting glucose); Encounter for long-term current use of medication Start: 08-21-2023 Refill Paulo lockett MD Work Phone: [facility] [place] Comment on above: Refill Request Start: 07-22-2023 End: 07-22-2023 Subsequent hospital visit by physician Xr [facility] [place] Work Phone: Radiology Comment on above: Acute pain of both k nees [M25.561, M25.562] Start: 07-22-2023 End: 07-22-2023 Patient encounter procedure Whit Demarco PA Work Phone: [facility] Comment on above: Acute pain of both k nees (Primary Dx) Start: 07-04-2023 Telephone encounter Paulo hardwick MD Work Phone: [facility] [place] Comment on above: Insurance Authorizat ion Start: 07-04-2023 End: 07-04-2023 Patient encounter procedure Norman Garcia APRN.POCKET CREASER Work Phone: [facility] [place] Comment on above: Strain of lumbar reg ion, subsequent encounter (Primary Dx); Chronic bilateral low back pain with bilateral sciatica Start: 07-03-2023 E-mail encounter fro m caregiver [facility] Provider [facility] Start: 07-03-2023 Patient encounter procedure [facility] Provider [facility] [place] Comment on above: appointment cancella tion Start: 06-19-2023 End: 06-19-2023 Emergency department patient visit Dr. Paulo Scott Work Phone: [facility]-Emergency Department Work Phone: Start: 04-28-2023 Refill Juan Rodriguez APRN.COLLECTIONS REP Work Phone: [facility] [place] Comment on above: Refill Request Start: 04-23-2023 Non-patient / Non-visit Dr. Octavia Scott Work Phone: [facility] Start: 04-23-2023 End: 04-23-2023 Admission to same day surgery center Dr. Paulo Scott Work Phone: [facility]-Endoscopy Work Phone: Start: 04-23-2023 End: 04-23-[address] Paulo Scott Work Phone: [facility] Work Phone: Start: 04-14-2023 End: 04-14-[address] Paulo Scott Work Phone: [facility]-Pulmonary Medicine [facility] Work Phone: Start: 03-05-2023 End: 03-05-[address] Paulo Scott Work Phone: [facility] Work Phone: Start: 02-21-2023 End: 02-21-2023 Office outpatient visit 25 minutes Juan Rodriguez APRN.COLLECTIONS REP Work Phone: [facility] [place] Comment on above: Acquired hypothyroid ism (Primary Dx); Essential hypertension; Chronic bilateral low back pain with bilateral sciatica; Elevated glucose; Mixed hyperlipidemia; Encounter for immunization; Vertigo; Anxiety Start: 02-17-2023 Telephone encounter Juan godinez APRN.COLLECTIONS REP Work Phone: [facility] [place] Comment on above: Lab Orders Start: 02-12-2023 Refill Paulo lockett MD Work Phone: [facility] [place] Comment on above: Refill Request Start: 01-31-2023 End: 01-31-[address] Paulo Scott Work Phone: [facility] Work Phone: Start: 11-06-2022 Telephone encounter Paulo hardwick MD Work Phone: [facility] [place] Comment on above: Patient Update Start: 10-26-2022 Refill Norman Sumeet MANAGER CAR.POCKET CREASER Work Phone: [facility] [place] Comment on above: Refill Request Start: 10-17-2022 End: 10-17-[address] Paulo Scott Work Phone: [facility] Work Phone: Start: 10-17-2022 End: 10-17-[address] [facility] Start: 10-15-2022 End: 10-15-[address] Paulo Scott Work Phone: [facility] Work Phone: Start: 10-15-2022 End: 10-15-[address] [facility] Work Phone: Start: 10-02-2022 End: 10-02-[address] [facility] Work Phone: Start: 09-27-2022 End: 09-27-[address] Paulo Scott Work Phone: [facility] Work Phone: Start: 09-24-2022 Refill Norman Garcia MANAGER CAR.POCKET CREASER Work Phone: [facility] [place] Comment on above: Refill Request Start: 09-19-2022 End: 09-19-2022 Patient encounter procedure Ryan Chicas MD Work Phone: [facility] Comment on above: Rash (Primary Dx); Intertrigo Start: 09-18-2022 Refill Paulo lockett MD Work Phone: [facility] [place] Comment on above: Refill Request Start: 09-16-2022 Documentation procedure Mammog annalisa Coordinator [facility] Start: 09-16-2022 Letter encounter Mammography Coordinator [facility] Department Start: 09-13-2022 End: 09-13-2022 Subsequent hospital visit by physician Screen Mammo [facility] Comment on above: Encounter for screen ing mammogram for breast cancer [Z12.31] Start: 09-09-2022 Refill Paulo lockett MD Work Phone: [facility] [place] Comment on above: Refill Request Start: 08-19-2022 Telephone encounter Paulo hardwick MD Work Phone: [facility] [place] Comment on above: Rx transferred to [facility] Start: 08-05-2022 End: 08-05-2022 Emergency department patient visit Dr. Paulo Scott Work Phone: [facility]-Emergency Department Work Phone: Start: 07-30-2022 Refill Norman Garcia MANAGER CAR.POCKET CREASER Work Phone: [facility] [place] Comment on above: Refill Request Start: 07-26-2022 End: 07-26-[address] Paulo Scott Work Phone: [facility] Work Phone: Start: 06-10-2022 Telephone encounter Paulo hardwick MD Work Phone: [facility] [place] Comment on above: Opened In Error Start: 05-22-2022 Telephone encounter Paulo hardwick MD Work Phone: [facility] [place] Comment on above: OT Update Start: 05-21-2022 Refill Norman Garcia MANAGER CAR.POCKET CREASER Work Phone: [facility] [place] Comment on above: Refill Request Start: 05-17-2022 End: 05-17-2022 Office outpatient visit 25 minutes Paulo Scott MD Work Phone: [facility] [place] Comment on above: Pain in both lower e xtremities (Primary Dx); Bilateral leg edema; Imbalance; Cold sore Start: 05-09-2022 Telephone encounter Paulo hardwick MD Work Phone: [facility] [place] Comment on above: [facility] HH, OT update/ve rbal order Start: 05-07-2022 Telephone encounter Paulo hardwick MD Work Phone: [facility] [place] Comment on above: [facility], PT, plan of care; FYI-No Action Needed Start: 05-06-2022 Non-patient / Non-visit Dr. Octavia Scott Work Phone: [facility] Start: 05-05-2022 Non-patient / Non-visit Dr. Octavia Scott Work Phone: [facility] Start: 05-05-2022 End: 05-06-2022 Evaluation and management of inpatient Dr. Paulo Scott Work Phone: [facility]-Medical Surgical 3 Start: 05-05-2022 End: 05-06-[address] Paulo Scott Work Phone: [facility] Work Phone: Start: 04-26-2022 End: 04-26-2022 Office outpatient visit 25 minutes Juan Rodriguez MANAGER CAR.COLLECTIONS REP Work Phone: [facility] Comment on above: Submandibular lympha denopathy (Primary Dx); Primary hypertension; Throat pain Start: 04-24-2022 End: 04-24-2022 Emergency department patient visit Dr. Paulo Scott Work Phone: [facility]-Emergency Department Start: 04-24-2022 ambulatory Paulo lockett MD Work Phone: [facility] [place] Comment on above: Face Swelling Start: 04-03-2022 End: 04-03-[address] Paulo Scott Work Phone: [facility]-Pulmonary Medicine [facility] Start: 03-19-2022 Refjessica Garcia APRN.CNP Work Phone: [facility] [place] Comment on above: Refill Request Start: 02-25-2022 Telephone encounter Paulo hardwick MD Work Phone: [facility] [place] Comment on above: Results Start: 02-19-2022 Refill Paulo lockett MD Work Phone: [facility] [place] Comment on above: Refill Request Start: 12-07-2021 End: 12-07-2021 ambulatory Mi Nurse Work Phone: [facility] [place] Start: 11-01-2021 Refill Paulo lockett MD Work Phone: [facility] [place] Comment on above: Refill Request Start: 10-04-2021 Telephone encounter Paulo hardwick MD Work Phone: [facility] [place] Comment on above: Patient Question Start: 09-18-2021 End: 09-18-2021 Emergency department patient visit Dr. Paulo Scott Work Phone: [facility]-Emergency Department Start: 08-31-2021 Telephone encounter Paulo hardwick MD Work Phone: [facility] [place] Comment on above: Medication Problem Start: 08-23-2021 End: 08-23-2021 Office outpatient visit 25 minutes Paulo Scott MD Work Phone: [facility] [place] Comment on above: Acquired hypothyroid ism (Primary Dx); IFG (impaired fasting glucose); Vitamin D deficiency; Essential hypertension; Vertigo; OAB (overactive bladder); Dysphagia, unspecified type; Anxiety Start: 08-22-2021 ambulatory Paulo lockett MD Work Phone: [facility] [place] Start: 08-06-2021 End: 08-06-[address] [facility] Start: 05-25-2021 End: 05-25-[address] Paulo Scott Work Phone: [facility]-Radiology, [facility] Start: 12-15-2020 End: 12-15-2020 Subsequent hospital visit by physician Xr [facility] Work Phone: Radiology Comment on above: Acute pain of right shoulder [M25.511] Start: 08-30-2020 End: 08-30-2020 [facility] Comment on above: Trigger middle finge r of right hand [M65.331] Start: 07-22-2020 End: 07-22-2020 Subsequent hospital visit by physician Quoc Diaz MD Work Phone: [place] Outpatient Lab Comment on above: Family history of co thom cancer; Family history of gene mutation; Personal history of colonic polyps Start: 07-11-2020 End: 07-11-2020 Subsequent hospital visit by physician Xr [facility] Work Phone: Radiology Comment on above: Back pain of thoraco lumbar region [M54.5, M54.6] Procedures Date Procedure Procedure Detail Performing Clinician Start: 01-17-2025 Mean corpuscular hemoglobin concentration determination Dr. Paulo Scott MD Work Phone: Start: 01-17-[address] Paulo Scott MD Work Phone: Start: 01-17-2025 Nucleated red blood cell count procedure Dr. Paulo Scott MD Work Phone: Start: 01-17-2025 Platelet mean volume determination Dr. Jorge Scott MD Work Phone: Start: 01-14-2025 Urine microscopy: red cells Dr. Paulo hardwick MD Work Phone: Start: 01-14-2025 Urnls dip stick/tablet reagent auto microscopy Dr. Paulo Scott MD Work Phone: Start: 01-14-[address] Paulo Scott MD Work Phone: Start: 01-14-2025 Mean corpuscular hemoglobin concentration determination Dr. Paulo Scott MD Work Phone: Start: 01-14-[address] Paulo Scott MD Work Phone: Start: 01-14-2025 Nucleated red blood cell count procedure Dr. Paulo Scott MD Work Phone: Start: 01-14-2025 Platelet mean volume determination Dr. Jorge Scott MD Work Phone: Start: 01-11-2025 Mean corpuscular hemoglobin concentration determination Dr. Paulo Scott MD Work Phone: Start: 01-11-[address] Paulo Scott MD Work Phone: Start: 01-11-2025 Nucleated red blood cell count procedure Dr. Paulo Scott MD Work Phone: Start: 01-11-2025 Platelet mean volume determination Dr. Jorge Scott MD Work Phone: Start: 01-11-2025 Vitamin D, 25-hydroxy measurement Dr. Octavia Scott MD Work Phone: Start: 01-04-2025 Mean corpuscular hemoglobin concentration determination Dr. Paulo Scott MD Work Phone: Start: 01-04-[address] Paulo Scott MD Work Phone: Start: 01-04-2025 Nucleated red blood cell count procedure Dr. Paulo Scott MD Work Phone: Start: 01-04-2025 Platelet mean volume determination Dr. Jorge Scott MD Work Phone: Start: 01-03-[address] Paulo Scott MD Work Phone: Start: 01-03-2025 Mean corpuscular hemoglobin concentration determination Dr. Paulo Scott MD Work Phone: Start: 01-03-[address] Paulo Scott MD Work Phone: Start: 01-03-2025 Nucleated red blood cell count procedure Dr. Paulo Scott MD Work Phone: Start: 01-03-2025 Platelet mean volume determination Dr. Joreg Scott MD Work Phone: Start: 01-01-2025 Plain chest X-ray Dr. Paulo Scott MD Work Phone: Start: 12-29-2024 Serum inorganic phosphate measurement Dr. Paulo Scott MD Work Phone: Start: 12-28-[address] Paulo bach MD Work Phone: Start: 12-28-2024 Plain chest X-ray Dr. Paulo Scott MD Work Phone: Start: 12-28-2024 Calculation of international normalized ratio Dr. Paulo Scott MD Work Phone: Start: 12-27-[address] Paulo lockett MD Work Phone: Start: 12-27-2024 Measurement of occult blood in stool specimen using immunoassay Dr. Paulo Scott MD Work Phone: Start: 12-27-[address] Paulo Scott MD Work Phone: Start: 12-27-2024 Urine microscopy: red cells Dr. Paulo hardwick MD Work Phone: Start: 12-27-2024 Urnls dip stick/tablet reagent auto microscopy Dr. Paulo Scott MD Work Phone: Start: 12-27-2024 Ct abdomen & pelvis w/contrast material Dr. Paulo Scott MD Work Phone: Start: 12-27-[address] Jorge Scott MD Work Phone: Start: 12-05-2024 Urine microscopy: red cells Dr. Paulo hardwick MD Work Phone: Start: 12-05-2024 Urnls dip stick/tablet reagent auto microscopy Dr. Paulo Scott MD Work Phone: Start: 12-05-[address] Paulo Scott MD Work Phone: Start: 12-05-2024 Radiologic exam chest [address] Paulo montero MD Work Phone: Start: 12-05-[address] Paulo Scott MD Work Phone: Start: 12-05-2024 Mean corpuscular hemoglobin concentration determination Dr. Paulo Scott MD Work Phone: Start: 12-05-[address] Paulo Scott MD Work Phone: Start: 12-05-2024 Nucleated red blood cell count procedure Dr. Paulo Scott MD Work Phone: Start: 12-05-2024 Platelet mean volume determination Dr. Jorge Scott MD Work Phone: Start: 06-18-2024 X-ray of lumbar spine, two [...] of knee, four or more views Dr. Octavia Scott MD Work Phone: Start: 01-23-2024 Adult depression screening assessment Norman Garcia APRN.POCKET CREASER Work Phone: Start: 11-28-2023 Lipid 1995 panel - Serum or Plasma Xr Wo lisandra Work Phone: Start: 08-29-2023 Lipid 1995 panel - Serum or Plasma Paulo Scott MD Work Phone: Start: 07-22-2023 Radiologic exam knee complete 4/more views Whit CASTANEDA Work Phone: Start: 06-19-2023 CT of lumbar spine Dr. Paulo Scott Work Phone: Start: 04-23-2023 End: 04-23-[address] Paulo Scott Work Phone: Start: 02-19-2023 Lipid 1996 panel - Serum or Plasma Juan Rodriguez MANAGER [employer] REP Work Phone: Start: 10-17-[address] Paulo Scott Work Phone: Start: 10-17-[address] Paulo lockett Work Phone: Start: 10-17-[address] Paulo Scott Work Phone: Start: 09-13-2022 End: 09-13-2022 Mammography Bulk Order Provider Start: 08-28-2022 Lipid 1996 panel - Serum or Plasma Scree n Wstr Start: 08-05-20[address] Diagnostic radiography of abdomen Dr. Octavia Scott Work Phone: Start: 05-05-2022 Radiologic examination [...] Radex hand minimum 3 views Juan Rodriguez MANAGER [employer] Work Phone: Start: 07-21-2020 Mammography Paulo Scott MD Work Phone: Start: 07-11-2020 Radex spine lumbosacral 2/3 views Paulo Scott MD Work Phone: Start: 07-11-2019 History of cholecystectomy S/P laparoscopic cholecystectomy Paulo Scott MD Work Phone: Start: 01-15-2015 Colonoscopy Paulo Scott MD Work Phone: Plan of Treatment Date Care Activity Detail Author Start: 04-23-2030 Screening for malign ant neoplasm of colon [facility] Start: 11-27-2028 Lipid panel Lipid Screening [facility] Start: 08-28-2028 Lipid panel Lipid Screening [facility] Start: 02-20-2028 Lipid 1996 panel - S ana or Plasma Lipid Screening [facility] Start: 02-20-2028 Lipid panel Lipid Screening [facility] Start: 08-29-2027 Lipid 1996 panel - S ana or Plasma Lipid Screening [facility] Start: 08-29-2027 LIPID SCREEN LIPID SCREEN [facility] Start: 11-27-2026 Diabetes Screening Diabetes Screenin [facility] Start: 08-28-2026 Diabetes Screening Diabetes Screenin [facility] Start: 08-04-2026 LIPID SCREEN LIPID SCREEN [facility] Start: 02-19-2026 Diabetes Screening Diabetes Screenin g [facility] Start: 09-24-2025 Annual PCP Team Pie Cutter gregroio Disease Visit Annual PCP Team Chronic Disease Visit [facility] Start: 09-24-2025 Hepatitis B surface antibody level LDL Cholesterol [facility] Start: 08-28-2025 DIABETES SCREEN DIABETES SCREEN [facility] Start: 08-28-2025 Diabetes Screening Diabetes Screenin g [facility] Start: 05-21-2025 BP Controlled (<130/80) BP Controlle d (<130/80) [facility] Start: 05-21-2025 Covid-19 Vaccine () Covid-19 Vaccine () [facility] Comment on above: Postponed from 11/15 (Declined at this time) Start: 03-27-2025 Hemoglobin A1c measurement HbA1C [facility] Start: 03-05-2025 Screening for malign ant neoplasm of breast Mammogram Screening [facility] Start: 03-04-2025 End: 03-04-2025 Patient encounter procedure 03/04/2025 3:20 PM EST Office Visit [facility] [address] [place] [address] Paulo Scott MD [address] [place] [address] 4 month f/u [facility] Comment on above: 4 month f/u Start: 2025 RSV Vaccine (1 - 1-d ose 75+ series) RSV Vaccine (1 - 1-dose 75+ series) [facility] Start: 02-15-2025 DIABETES SCREEN DIABETES SCREEN [facility] Start: 01-22-2025 Annual PCP Team Pie Cutter gregorio Disease Visit Annual PCP Team Chronic Disease Visit [facility] Start: 01-22-2025 BP Controlled (<130/80) BP Controlle d (<130/80) [facility] Start: 01-22-2025 Depression Screening Depression Scre ening [facility] Start: 01-17-2025 -JOSE - Vignesh riley Start: 01-14-2025 [facility] Start: 01-13-2025 End: 01-14-2025 -Emergency Department Work Phone: Start: 01-11-2025 Vitamin D, 25-hydrox y measurement [facility] Start: 01-11-2025 -BLASL - Den nison Start: 01-03-2025 Oxygen therapy [facility] Start: 01-03-2025 Patient discharge [facility] Start: 01-03-2025 [facility] Start: 01-01-2025 Referral for physica l therapy [facility] Start: 01-01-2025 Referral to occupati onal therapist [facility] Start: 12-30-2024 Elevation of affecte d extremity [facility] Start: 12-30-2024 Notification of physician [facility] Start: 12-30-2024 Patient education [facility] Start: 12-30-2024 Inhalation therapy procedure [facility] Start: 12-29-2024 [facility] Start: 12-28-2024 Following clinical p athway protocol [facility] Start: 12-28-2024 End: 12-28-2024 [facility] Start: 12-28-2024 Notification of physician [facility] Start: 12-28-2024 Care regimes management [facility] Start: 12-27-2024 End: 12-28-2024 [facility] Start: 12-27-2024 End: 12-27-2024 Following clinical pathway protocol [facility] Start: 12-27-2024 Ambulation without limitation [facility] Start: 12-27-2024 Assessment of risk o f venous thromboembolism [facility] Start: 12-27-2024 Documentation procedure [facility] Start: 12-27-2024 Insertion of cathete r into peripheral vein [facility] Start: 12-27-2024 Measuring intake and output [facility] Start: 12-27-2024 Providing care accor ding to standard [facility] Start: 12-27-2024 Referral to gastroenterology service [facility] Start: 12-27-2024 Referral to service [facility] Start: 12-27-2024 Admission procedure [facility] Start: 12-27-2024 Administration of bl ood product [facility] Start: 12-27-2024 Consultation [facility] Start: 12-05-2024 [facility] Start: 12-05-2024 [facility] Start: 11-27-2024 Hepatitis B surface antibody level LDL Cholesterol [facility] Start: 11-15-2024 Influenza vaccination C [facility] Start: 10-16-2024 BP Controlled (<130/80) BP Controlle d (<130/80) [facility] Start: 09-29-2024 End: 12-29-2024 Microalbumin/Creatinine [Mass Ratio] in Urine ALBUMIN/CREATININE RATIO, URINE Lab Routine Diet-controlled diabetes mellitus (HCC) Expected: 09/29/2024, Expires: 12/29/2024 [facility] Work Phone: Comment on above: Expected: 09/29/2024 , Expires: 12/29/2024 Start: 09-24-2024 End: 12-24-2024 25-hydroxyvitamin D3 [Mass/volume] in Serum or Plasma [facility] Comment on above: Expected: 09/24/2024 , Expires: 12/24/2024 Start: 09-24-2024 End: 12-24-2024 Comprehensive metabolic 2000 panel - Serum or Plasma [facility] Work Phone: Comment on above: Expected: 09/24/2024 , Expires: 12/24/2024 Start: 09-24-2024 End: 12-24-2024 Hemoglobin A1c in Blood [facility] Comment on above: Expected: 09/24/2024 , Expires: 12/24/2024 Start: 09-24-2024 End: 12-24-2024 LIPID PANEL, NONFASTING [facility] Comment on above: Expected: 09/24/2024 , Expires: 12/24/2024 Start: 09-24-2024 End: 12-24-2024 Thyrotropin [Units/volume] in Serum or Plasma [facility] Comment on above: Expected: 09/24/2024 , Expires: 12/24/2024 Start: 09-24-2024 End: 09-24-2024 Patient encounter procedure [facility] Comment on above: 4 month f/u Start: 09-16-2024 Annual PCP Team Pie Cutter gregorio Disease Visit Annual PCP Team Chronic Disease Visit [facility] Start: 09-16-2024 BP Controlled (<130/80) BP Controlle d (<130/80) [facility] Start: 09-13-2024 Influenza vaccination Influenza Vacc ine (#1) [facility] Comment on above: Postponed from 11/15 (Declined at this time) Start: 08-28-2024 Hepatitis B surface antibody level LDL Cholesterol [facility] Start: 08-22-2024 [facility] Start: 08-04-2024 DIABETES SCREEN DIABETES SCREEN [facility] Start: 07-03-2024 Annual PCP Team Pie Cutter gregorio Disease Visit Annual PCP Team Chronic Disease Visit [facility] Start: 05-27-2024 Hemoglobin A1c measurement HbA1C [facility] Start: 05-21-2024 End: 05-21-2024 Patient encounter procedure 05/21/2024 1:40 PM EST Office Visit [facility] [address] [place] [address] Paulo Scott MD [address] [place] [address] 4 month follow up [facility] Comment on above: 4 month follow up Start: 04-08-2024 Following clinical p athway protocol [facility] Start: 03-05-2024 End: 03-05-2024 Patient encounter procedure 03/05/2024 1:30 PM EST Appointment Mammogram [address] [place] [address] [facility] prev here Mammogram Comment on above: [facility] prev here Start: 02-22-2024 BP Controlled (<130/80) BP Controlle d (<130/80) [facility] Start: 02-20-2024 Hepatitis B surface antibody level LDL Cholesterol [facility] Start: 01-23-2024 End: 01-23-2024 Patient encounter procedure 01/23/2024 1:20 PM EST Office Visit [facility] [address] [place] [address] Norman Garcia APRN.POCKET CREASER [address] [place] [address] 4 month follow up [facility] Comment on above: 4 month follow up Start: 12-18-2023 End: 03-18-2024 25-hydroxyvitamin D3 [Mass/volume] in Serum or Plasma VITAMIN D 25 HYDROXY Lab Routine Vitamin D deficiency Encounter for long-term current use of medication Expected: 12/18/2023 (Approximate), Expires: 03/18/2024 [facility] Comment on above: Expected: 12/18/2023 (Approximate), Expires: 03/18/2024 Start: 12-18-2023 End: 03-18-2024 Comprehensive metabolic 2000 panel - Serum or Plasma COMPREHENSIVE METABOLIC PANEL Lab Routine IFG (impaired fasting glucose) Encounter for long-term current use of medication Expected: 12/18/2023 (Approximate), Expires: 03/18/2024 [facility] Comment on above: Expected: 12/18/2023 (Approximate), Expires: 03/18/2024 Start: 12-18-2023 End: 03-18-2024 Hemoglobin A1c in Blood HEMOGLOBIN A1C Lab Routine IFG (impaired fasting glucose) Encounter for long-term current use of medication Expected: 12/18/2023 (Approximate), Expires: 03/18/2024 [facility] Work Phone: Comment on above: Expected: 12/18/2023 (Approximate), Expires: 03/18/2024 Start: 12-18-2023 End: 03-18-2024 Lipid 1996 panel - Serum or Plasma LIPID PANEL BASIC Lab Routine Encounter for long-term current use of medication Expected: 12/18/2023 (Approximate), Expires: 03/18/2024 [facility] Comment on above: Expected: 12/18/2023 (Approximate), Expires: 03/18/2024 Start: 12-18-2023 End: 03-18-2024 TOXICOLOGY SCREEN, ROUTINE URINE TOXICOLOGY SCREEN, ROUTINE URINE Lab Routine Encounter for long-term current use of medication Expected: 12/18/2023 (Approximate), Expires: 03/18/2024 [facility] Comment on above: Expected: 12/18/2023 (Approximate), Expires: 03/18/2024 Start: 11-16-2023 Covid-19 Vaccine ( season) Covid-19 Vaccine ( season) [facility] Start: 11-16-2023 Covid-19 Vaccine ( season) Covid-19 Vaccine ( season) [facility] Start: 11-16-2023 Influenza vaccination C [facility] Start: 09-17-2023 End: 09-17-2023 Patient encounter procedure 09/17/2023 1:40 PM EDT Office Visit [facility] [address] [place] [id number] Paulo Scott MD [address] [place] [id number] 6 Month follow up [facility] Comment on above: 6 Month follow up Start: 09-14-2023 Mammography [facility] Start: 09-14-2023 Screening for malign ant neoplasm of breast Mammogram Screening [facility] Start: 09-07-2023 SHINGRIX VACCINE (2 of 3) GALICIA GRIX VACCINE (2 of 3) [facility] Comment on above: Postponed from 05/01 (Declined at this time) Start: 08-29-2023 Hepatitis B surface antibody level LDL CHOLESTEROL [facility] Start: 08-11-2023 End: 02-13-2024 CBC W Auto Differential panel - Blood CBC + DIFF Lab Routine Essential hypertension Expected: 08/11/2023 (Approximate), Expires: 02/13/2024 [facility] Work Phone: Comment on above: Expected: 08/11/2023 (Approximate), Expires: 02/13/2024 Start: 08-11-2023 End: 02-13-2024 Comprehensive metabolic 2000 panel - Serum or Plasma COMP METABOLIC PANEL Lab Routine Mixed hyperlipidemia Essential hypertension Expected: 08/11/2023 (Approximate), Expires: 02/13/2024 [facility] Work Phone: Comment on above: Expected: 08/11/2023 (Approximate), Expires: 02/13/2024 Start: 08-11-2023 End: 02-13-2024 Hemoglobin A1c in Blood HGB A1C Lab Routine Elevated glucose Expected: 08/11/2023 (Approximate), Expires: 02/13/2024 [facility] Work Phone: Comment on above: Expected: 08/11/2023 (Approximate), Expires: 02/13/2024 Start: 08-11-2023 End: 02-13-2024 Lipid 1996 panel - Serum or Plasma LIPID PANEL BASIC Lab Routine Mixed hyperlipidemia Expected: 08/11/2023 (Approximate), Expires: 02/13/2024 [facility] Work Phone: Comment on above: Expected: 08/11/2023 (Approximate), Expires: 02/13/2024 Start: 08-11-2023 End: 02-13-2024 Thyrotropin [Units/volume] in Serum or Plasma TSH BLD Lab Routine Acquired hypothyroidism Expected: 08/11/2023 (Approximate), Expires: 02/13/2024 [facility] Work Phone: Comment on above: Expected: 08/11/2023 (Approximate), Expires: 02/13/2024 Start: 06-19-2023 [facility] Start: 05-18-2023 ANNUAL PCP TEAM BIBLE READER GREGORIO DISEASE VISIT ANNUAL PCP TEAM CHRONIC DISEASE VISIT [facility] Start: 04-26-2023 BP CONTROLLED (<130/80) BP CONTROLLE D (<130/80) [facility] Start: 04-23-2023 Colsc flx w/rmvl of tumor polyp lesion snare tq COLONOSCOPY W/LESION REMOVAL [facility] Start: 04-23-2023 Egd transoral biopsy single/multiple EGD BIOPSY SINGLE/MULTIPLE [facility] Start: 04-23-2023 Patient discharge [facility] Start: 04-17-2023 COLORECTAL CANCER SCREENING COLORECTAL CANCER SCREENING [facility] Comment on above: Postponed from 02/26 (Declined at this time) Start: 03-17-2023 Advance Directive Discussion Advance Directive Discussion [facility] Start: 03-17-2023 Behavioral Health Screening Behavioral Health Screening [facility] Start: 03-17-2023 Depression Assessment Depression Ass essment [facility] Start: 03-01-2023 FECAL OCCULT BLOOD FECAL OCCULT BLOO D [facility] Start: 03-01-2023 Screening for malign ant neoplasm of colon Fecal Occult Blood [facility] Start: 02-22-2023 ANNUAL PCP TEAM BIBLE READER GREGORIO DISEASE VISIT ANNUAL PCP TEAM CHRONIC DISEASE VISIT [facility] Start: 02-22-2023 COVID-19 VACCINE (3 - Booster for Pfizer series) COVID-19 VACCINE (3 - Booster for Pfizer series) [facility] Comment on above: Postponed from 10/20 (Declined at this time) Start: 02-22-2023 COVID-19 VACCINE (3 - Pfizer series) COVID-19 VACCINE (3 - Pfizer series) [facility] Comment on above: Postponed from 10/20 (Declined at this time) Start: 11-15-2022 Covid-19 Vaccine (3 - 2023-24 season) Covid-19 Vaccine ( season) [facility] Start: 11-15-2022 Influenza vaccination C [facility] Start: 10-17-2022 Elastase, pancreatic (el-1), fecal; quantitative [facility] Start: 10-17-2022 Procedure [facility] Start: 10-17-2022 [facility] Start: 09-19-2022 End: 11-19-2022 Herpes simplex virus+Varicella zoster virus DNA [Presence] in Unspecified specimen by ELIN with probe detection [facility] Work Phone: Comment on above: Expected: 09/19/2022 , Expires: 11/19/2022 Start: 08-23-2022 Adult depression scr eening assessment DEPRESSION SCREENING [facility] Start: 08-23-2022 ANNUAL PCP TEAM BIBLE READER GREGORIO DISEASE VISIT ANNUAL PCP TEAM CHRONIC DISEASE VISIT [facility] Start: 08-23-2022 BP CONTROLLED (<130/80) BP CONTROLLE D (<130/80) [facility] Start: 08-23-2022 SHINGRIX VACCINE (2 of 3) GALICIA GRIX VACCINE (2 of 3) [facility] Comment on above: Postponed from 05/01 (Declined at this time) Start: 08-23-2022 Urine microalbumin profile DTAP,TDAP ,TD (1 - Tdap) [facility] Comment on above: Postponed from 11/18 (Declined at this time) Start: 08-04-2022 Hepatitis B surface antibody level LDL CHOLESTEROL [facility] Start: 05-06-2022 Referral to service [facility] Start: 05-06-2022 Patient discharge [facility] Start: 05-05-2022 Following clinical p athway protocol [facility] Start: 05-05-2022 Assessment of risk o f venous thromboembolism [facility] Start: 05-05-2022 Insertion of cathete r into peripheral vein [facility] Start: 05-05-2022 Measuring intake and output [facility] Start: 05-05-2022 Providing care accor ding to standard [facility] Start: 05-05-2022 Provision of activit y privileges [facility] Start: 05-05-2022 Referral to occupati onal therapist [facility] Start: 05-05-2022 Referral to service [facility] Start: 05-05-2022 [facility] Start: 05-05-2022 Admission procedure [facility] Start: 05-05-2022 Inhalation therapy procedure [facility] Start: 05-05-2022 Patient referral to dietitian [facility] Start: 04-03-2022 Patient referral [facility] Work Phone: Start: 03-17-2022 ADVANCE DIRECTIVE DISCUSSION ADVANCE DIRECTIVE DISCUSSION [facility] Start: 03-17-2022 [facility] Start: 03-16-2022 DEPRESSION ASSESSMENT [facility] Comment on above: Postponed from 03/17 (Declined at this time) Start: 03-02-2022 COLORECTAL CANCER SCREENING COLORECTAL CANCER SCREENING [facility] Start: 02-22-2022 End: 04-24-2022 25-hydroxyvitamin D3 [Mass/volume] in Serum or Plasma VITAMIN D 25 HYDROXY Lab Routine Vitamin D deficiency Expected: 02/22/2022 (Approximate), Expires: 04/24/2022 [facility] Work Phone: Comment on above: Expected: 02/22/2022 (Approximate), Expires: 04/24/2022 Start: 02-22-2022 End: 04-24-2022 CBC panel - Blood by Automated count CBC Lab Routine Essential hypertension Expected: 02/22/2022 (Approximate), Expires: 04/24/2022 [facility] Work Phone: Comment on above: Expected: 02/22/2022 (Approximate), Expires: 04/24/2022 Start: 02-22-2022 End: 04-24-2022 Comprehensive metabolic 2000 panel - Serum or Plasma COMP METABOLIC PANEL Lab Routine IFG (impaired fasting glucose) Essential hypertension Expected: 02/22/2022 (Approximate), Expires: 04/24/2022 [facility] Work Phone: Comment on above: Expected: 02/22/2022 (Approximate), Expires: 04/24/2022 Start: 02-22-2022 End: 04-24-2022 Hemoglobin A1c in Blood HGB A1C Lab Routine IFG (impaired fasting glucose) Expected: 02/22/2022 (Approximate), Expires: 04/24/2022 [facility] Work Phone: Comment on above: Expected: 02/22/2022 (Approximate), Expires: 04/24/2022 Start: 02-22-2022 End: 04-24-2022 Thyrotropin [Units/volume] in Serum or Plasma TSH BLD Lab Routine Acquired hypothyroidism Expected: 02/22/2022 (Approximate), Expires: 04/24/2022 [facility] Work Phone: Comment on above: Expected: 02/22/2022 (Approximate), Expires: 04/24/2022 Start: 02-22-2022 End: 04-24-2022 Thyroxine (T4) free [Mass/volume] in Serum or Plasma T4 FREE/FREE THYROX Lab Routine Acquired hypothyroidism Expected: 02/22/2022 (Approximate), Expires: 04/24/2022 [facility] Work Phone: Comment on above: Expected: 02/22/2022 (Approximate), Expires: 04/24/2022 Start: 02-22-2022 End: 04-24-2022 Triiodothyronine (T3) Free [Mass/volume] in Serum or Plasma T3 FREE BLD Lab Routine Acquired hypothyroidism Expected: 02/22/2022 (Approximate), Expires: 04/24/2022 [facility] Work Phone: Comment on above: Expected: 02/22/2022 (Approximate), Expires: 04/24/2022 Start: 01-15-2022 Colonoscopy COLONOSCOPY [facility] Start: 01-15-2022 COLORECTAL CANCER SCREENING COLORECTAL CANCER SCREENING [facility] Start: 11-15-2021 Influenza vaccination INFLUENZA (#1) [facility] Start: 07-21-2021 Mammography MAMMOGRAM [facility] Start: 03-17-2021 DEPRESSION ASSESSMENT DEPRESSION ASS ESSMENT [facility] Start: 01-25-2021 COVID-19 VACCINE (3 - Booster for Pfizer series) COVID-19 VACCINE (3 - Booster for Pfizer series) [facility] Start: 10-20-2020 COVID-19 VACCINE (3 - Booster for Pfizer series) COVID-19 VACCINE (3 - Booster for Pfizer series) [facility] Start: 11-19-2019 Urine microalbumin profile [facility] Start: 11-24-2018 Hepatitis B screening Urine Albumin:Creatinine Ratio [facility] Start: 02-14-2015 Medicare Annual Well ness Visit Medicare Annual Wellness Visit [facility] Start: 10-08-2013 FECAL OCCULT BLOOD FECAL OCCULT BLOO D [facility] Start: 05-01-2012 Shingrix Vaccine (2 of 3) Glaicia grix Vaccine (2 of 3) [facility] Start: 2010 RSV Vaccine (1 - 1-d ose 60+ series) RSV Vaccine (1 - 1-dose 60+ series) [facility] Start: 1995 COLOGUARD (FIT-DNA) COLOGUARD (FIT-D NA) [facility] Start: [address] COLONOGRAPHY [facility] Start: 1995 Screening for malign ant neoplasm of colon [facility] Start: 1995 SIGMOIDOSCOPY SIGMOIDOSCOPY [facility] Start: 1971 Microscopic observat ion [Identifier] in Cervix by Cyto stain Pap Smear [facility] Start: 1969 Hepatitis B (1 of 3 - Risk 3-dose series) Hepatitis B (1 of 3 - Risk 3-dose series) [facility] Start: 02-27-1968 BP CONTROLLED (<130/80) BP CONTROLLE D (<130/80) [facility] Start: 02-27-1968 Depression Screening Depression Scre ening [facility] Start: 1966 COVID-19 (1) COVID-19 (1) [facility] Start: 1966 MenB (1 of 2 - MenB 2-Dose Series) MenB (1 of 2 - MenB 2-Dose Series) [facility] Start: 02-27-1960 Diabetic foot examination Diabetic F oot Exam [facility] Start: 02-27-1960 Glaucoma screening Dilated Retinal E xam [facility] Start: 1957 Tetanus Diphtheria a nd Pertussis Vaccines (1 - Tdap) Tetanus Diphtheria and Pertussis Vaccines (1 - Tdap) [facility] Start: 1951 Hepatitis A (1 of 2 - Risk 2-dose series) Hepatitis A (1 of 2 - Risk 2-dose series) [facility] Start: 1951 MMR (1 of 1 - Standa rd series) MMR (1 of 1 - Standard series) [facility] Start: 1951 Varicella (1 of 2 - 2-dose childhood series) Varicella (1 of 2 - 2-dose childhood series) [facility] COVID & INFLUENZA A/ B & RSV PCR, ROUTINE COVID & INFLUENZA A/B & RSV PCR, ROUTINE Microbiology Routine Acute cough Ordered: 01/23/2024 [facility] Work Phone: Comment on above: Ordered: 01/23/2024 End: 11-13-2024 DBT Breast - bilateral screening FORTUNATO SCREENING [facility] Radiology Routine Encounter for screening mammogram for breast cancer 1 Occurrences starting 10/15/2023 until 11/13/2024 [facility] Work Phone: Comment on above: 1 Occurrences starti ng 10/15/2023 until 11/13/2024 DBT Breast - bilater al screening FORTUNATO SCREENING [facility] Radiology Routine Encounter for screening mammogram for breast cancer 03/05/2024 1:29 PM EST [facility] Work Phone: Genetic Sendout: Genetic Sendout : Lab Routine 07/22/2020 12:00 PM EDT [facility] End: 07-22-2020 Genetic Sendout: Common Hereditary Cancers Panel [facility] Comment on above: 1 Occurrences starti [...] Encounter for immunization 1 Occurrences starting 02/21/2023 [facility] Work Phone: Comment on above: 1 Occurrences starti ng 02/21/2023 Ova and parasites identified in Unspecified specimen by Light microscopy [facility] Patient Education [facility] Work Phone: Patient referral [facility] Work Phone: PFIZER-BIONTECH COVI D-19 VACCINE ( SEASON) AGE 12+ YR PFIZER-BIONTECH COVID-19 VACCINE ( SEASON) AGE 12+ YR Immunization/Injection Routine Encounter for immunization 1 Occurrences starting 02/21/2023 [facility] Work Phone: Comment on above: 1 Occurrences starti ng 02/21/2023 End: 09-21-2022 Screening mammography bi 2-view breast inc cad FORTUNATO SCREENING Radiology Routine Encounter for screening mammogram for breast cancer 1 Occurrences starting 08/22/2021 until 09/21/2022 [facility] Work Phone: Comment on above: 1 Occurrences starti ng 08/22/2021 until 09/21/2022 [facility] Immunizations Immunization Date Immunization Notes Care Provider [facility] 12-28-2024 influenza, high dose seasonal, preservative-free Dr. Paulo Scott MD Work Phone: [facility] 01-15-2022 influenza, injectabl e, quadrivalent, preservative free Dr. Paulo Scott Work Phone: [facility] 01-15-2022 influenza, seasonal, injectable Dr. Paulo Scott Work Phone: [facility] 01-15-2022 influenza virus vaccine, unspecified formulation Screen Wstr [facility] 12-07-2021 Influenza, high dose seasonal Dr. Paulo Soctt MD Work Phone: [facility] 12-07-2021 influenza, high dose seasonal, preservative-free Dr. Paulo Scott Work Phone: [facility] 12-07-2021 influenza, high-dose , quadrivalent vaccine (FLUZONE HIGH DOSE QUADRIVALENT) Pr Nurse Work Phone: [facility] Work Phone: 12-07-2021 Dr. Paulo english MD Work Phone: [facility] 01-19-2021 influenza, high-dose , quadrivalent vaccine (FLUZONE HIGH DOSE QUADRIVALENT) Paulo Scott MD Work Phone: [facility] 08-25-2020 Covid (Pfizer) Dr. Paulo bach Work Phone: [facility] 08-04-2020 COVID-19 vaccine, ag e 12+ yr (PFIZER-BIONTIkanos - PURPLE TOP) Paulo Scott MD Work Phone: [facility] Work Phone: 12-16-2019 influenza, injectabl e, quadrivalent, preservative free Dr. Paulo Scott Work Phone: [facility] 12-16-2019 influenza, seasonal, injectable Dr. Paulo Scott Work Phone: [facility] 12-16-2019 influenza, seasonal, injectable, preservative free Paulo Scott MD Work Phone: [facility] Work Phone: 12-14-2019 influenza, high-dose , quadrivalent vaccine (FLUZONE HIGH DOSE QUADRIVALENT) Paulo Scott MD Work Phone: [facility] 11-18-2019 tetanus and diphther ia toxoids, adsorbed, preservative free, for adult use (2 Lf of tetanus toxoid and 2 Lf of diphtheria toxoid) Paulo Scott MD Work Phone: [facility] 12-22-2018 influenza, high dose seasonal, preservative-free Paulo Scott MD Work Phone: [facility] 12-21-[address] Paulo Scott Work Phone: [facility] 12-21-2018 Dr. Paulo english MD Work Phone: [facility] 12-05-2017 influenza, high dose seasonal, preservative-free Paulo Scott MD Work Phone: [facility] Work Phone: 11-29-2016 influenza, high dose seasonal, preservative-free Paulo Scott MD Work Phone: [facility] 11-29-2016 pneumococcal polysaccharide vaccine, 23 valent Paulo Scott MD Work Phone: [facility] 12-08-2015 influenza, high dose seasonal, preservative-free Paulo Scott MD Work Phone: [facility] 09-22-2015 pneumococcal conjuga te vaccine, 13 valent Paulo Scott MD Work Phone: [facility] 12-15-2014 influenza, injectabl e, quadrivalent, contains preservative Paulo Scott MD Work Phone: [facility] Work Phone: 12-23-2013 influenza, seasonal, injectable Paulo Scott MD Work Phone: [facility] Work Phone: 02-09-2013 influenza virus vaccine, unspecified formulation Paulo Scott MD Work Phone: [facility] 03-06-2012 zoster vaccine, live Paulo cuello MD Work Phone: [facility] Work Phone: 01-29-2012 influenza virus vaccine, unspecified formulation Paulo Scott MD Work Phone: [facility] Work Phone: 2011 influenza virus vaccine, unspecified formulation Paulo Scott MD Work Phone: [facility] Work Phone: 01-06-2009 influenza virus vaccine, whole virus Norman Garcia APRN.CNP Work Phone: [facility] 06-03-2008 hepatitis B vaccine, pediatric or pediatric/adolescent dosage Dr. Paulo Scott Work Phone: [facility] 02-09-2008 influenza virus vaccine, whole virus Norman Garcia APRN.CNP Work Phone: [facility] 01-15-2008 hepatitis B vaccine, pediatric or pediatric/adolescent dosage Dr. Paulo Scott Work Phone: [facility] 12-04-2007 hepatitis B vaccine, pediatric or pediatric/adolescent dosage Dr. Paulo Scott Work Phone: [facility] NEGATED: Highlighted row has not occurred!09-06-2022 tetanus toxoid, reduced diphtheria toxoid, and acellular pertussis vaccine, adsorbed Paulo Scott MD Work Phone: [facility] Work Phone: Comment on above: Deferred: Postponed Payers Date Payer Category Payer Self-pay [id number] 2020 Medicare ANTHEM MEDICARE ANTHEM MEDICARE SELECT [id number] 2020-Present [address] [address] [place] [address] [id number] 2016 [facility] ANTHEM PR DICARE SUPPLEMENT [id number] 2016 Unknown [facility] DICARE SUPPLEMENT [id number] 2016-Present [phone] [address] [place] [address] Indemnity [id number] 2016 Unknown ANTHEM ANTHEM ME DICARE SUPPLEMENT [id number] 2016-Present [phone] [address] [place] [address] Indemnity [id number] 2016 Unknown [id number] 2015 Medicare [id number] 2015 Medicare [id number] .[id number] 2015 Medicare [id number] Unknown [id number] Unknown [id number] 2.16.840.1.552833.3.579.2 .462 Unknown [id number] 2.16840.1.539913.3.579.2 .462 Unknown [id number] 2.16840.1.670716.3.579.2 .462 Unknown [id number] 2.16840.1.358856.3.579.2 .462 Unknown [id number] 2.16.840.1.962996.3.579.2 .462 Unknown [id number] 2.16840.1.275787.3.579.2 .462 Unknown [id number] 2.16840.1.439022.3.579.2 .462 Unknown [id number] 2.16840.1.858973.3.579.2 .462 Unknown [id number] 2.16.840.1.767957.3.579.2 .462 Unknown [id number] 2.16.840.1.259893.3.579.2 .462 Unknown [id number] 2.16.840.1.694307.3.579.2 .462 Unknown [id number] 2.16.840.1.584462.3.579.2 .462 Unknown [id number] 2.16.840.1.558891.3.579.2 .462 Unknown [id number] 2.16.840.1.913839.3.579.2 .462 Unknown [id number] 2.16.840.1.523253.3.579.2 .462 Unknown [id number] 2.16.840.1.100788.3.579.2 .462 Unknown [id number] 2.16.840.1.790931.3.579.2 .462 Unknown [id number] 2.16.840.1.377529.3.579.2 .462 Unknown [id number] 2.16.840.1.352789.3.579.2 .462 Unknown [id number] 2.16.840.1.207426.3.579.2 .462 Unknown [id number] 2.16.840.1.639333.3.579.2 .462 Unknown [id number] 2.16.840.1.417111.3.579.2 .462 Unknown [id number] 2.16.840.1.363206.3.579.2 .462 Unknown [id number] 2.16.840.1.048400.3.579.2 .462 Unknown [id number] 2.16.840.1.816268.3.579.2 .462 Unknown [id number] 2.16.840.1.586223.3.579.2 .462 Unknown [id number] 2.16.840.1.234938.3.579.2 .462 Unknown [id number] 2.16.840.1.567887.3.579.2 .462 Unknown [id number] 2.16.840.1.764248.3.579.2 .462 Unknown [id number] 2.16.840.1.498593.3.579.2 .462 Unknown [id number] 2.16.840.1.711970.3.579.2 .462 Unknown [id number] 2.16.840.1.891720.3.579.2 .462 Unknown [id number] 2.16.840.1.328803.3.579.2 .462 Unknown [id number] 2.16.840.1.047235.3.579.2 .462 Unknown [id number] 2.16.840.1.667499.3.579.2 .462 Unknown [id number] 2.16.840.1.037819.3.579.2 .462 Social History Date Type Detail Facility Start: 04-14-2020 End: 01-14-2025 Tobacco smoking status NHIS Never smoker [facility] Start: 04-14-2020 End: 04-26-2022 Tobacco use and exposure Never used [facility] Start: 1950 Sex Assigned At Not on file A [facility] Start: 06-11-2020 End: 12-01-2021 Exposure to SARS-CoV-2 (event) Not sure [facility] Start: 12-21-2020 End: 09-24-2024 Alcohol intake Current drinker of alcohol (finding) [facility] Start: 12-21-2020 End: 08-23-2022 Alcohol intake [facility] Work Phone: Start: 12-28-2010 History SDOH Alcohol Comment occasionally rare [facility] Start: 09-18-2021 End: 06-19-2023 Tobacco smoking status CAIS Unknown if ever smoked [facility] Start: 05-23-2021 Occasional [facility] Start: 1950 Sex Assigned At Female [facility] Start: 08-23-2022 End: 09-19-2022 Tobacco use panel [facility] Work Phone: Start: 02-16-2012 Adult Depression Screening Assessment 2 [facility] Work Phone: Start: 06-03-2024 [facility] ([facility] NEGATED: Highlighted row [facility] Medical Equipment Procedure Code Equipment Code Equipment Original Text Equipment Identifier Dates Total cholecystectomy with exploration of common bile duct CLIP,HEMOLOCK MED WECK FDA Start: 02-10-2019 Total cholecystectomy with [...] with exploration of common bile duct CLIP,HEMOLOCK CHRIS WECK FDA Start: 02-10-2019 Total cholecystectomy with [...] exploration of common bile duct CLIP,LUISMARYBEL CHRIS WECK FDA Start: 02-10-2019 Total cholecystectomy with exploration of common bile duct CLIP,LUISMARYBEL CHRIS WECK FDA Start: 02-10-2019 Total cholecystectomy with [...] exploration of common bile duct CLIP,LUISMARYBEL CHRIS WECK FDA Start: 02-10-2019 Total cholecystectomy with exploration of common bile duct CLIP,HEMIBETH PEREZ WECK FDA Start: 02-10-2019 Total cholecystectomy with exploration of common bile duct CLIP,LUISMARYBEL CHRIS WECK FDA Start: 02-10-2019 Total cholecystectomy with exploration of common bile duct CLIP,LUISMARYBEL CHRIS WECK FDA Start: 02-10-2019 Total cholecystectomy with exploration of common bile duct CLIP,JOSE MANUELIBETH PEREZ WECK FDA Start: 02-10-2019 Total cholecystectomy with exploration of common bile duct CLIP,JOSE MANUELIBETH PEREZ WECK FDA Start: 02-10-2019 Total cholecystectomy with exploration of common bile duct CLIP,HEMIBETH LONG FDA Start: 02-10-2019 Total cholecystectomy with [...] with exploration of common bile duct CLIP,SUDEEP OLNG FDA Start: 02-10-2019 Total cholecystectomy with exploration of common bile duct FDA Start: 02-10-2019 Total cholecystectomy with exploration of common bile duct FDA Start: 02-10-2019 Total cholecystectomy with exploration of common bile duct FDA Start: 02-10-2019 Total cholecystectomy with exploration of common bile duct FDA Start: 02-10-2019 Total cholecystectomy with exploration of common bile duct FDA Start: 02-10-2019 Total cholecystectomy with exploration of common bile duct FDA Start: 02-10-2019 Total cholecystectomy with exploration of common bile duct FDA Start: 02-10-2019 Total cholecystectomy with exploration of common bile duct FDA Start: 02-10-2019 Goals Date Patient Goal Desired Activity /State Functional Status Date Assessment Result Facility 01-03-2025 Functional status Ambulates [facility] Work Phone: 05-06-2022 Functional status Ambulates [facility] Work Phone: 08-19-2014 Are you deaf, or do you have serious difficulty hearing No 08/19/2014 10:45 AM Rosina Poe LPN No [facility] 08-19-2014 Are you blind, or do you have serious difficulty seeing, even when wearing glasses No 08/19/2014 10:45 AM Rosina Poe LPN No [facility] 08-19-2014 Do you have serious difficulty walking or climbing stairs No 08/19/2014 10:45 AM Rosina Poe LPN No [facility] 08-19-2014 Do you have difficul ty dressing or bathing No 08/19/2014 10:45 AM Rosina Poe LPN No [facility] 08-19-2014 Because of a physica l, mental, or emotional condition, do you have difficulty doing errands alone such as visiting a physician's office or shopping No 08/19/2014 10:45 AM Rosina Poe LPN No [facility] Mental Status Date Assessment Result Facility 01-13-2025 Cognitive function Awake [facility] Work Phone: 01-03-2025 Cognitive function Voice/Name [facility] Work Phone: 12-05-2024 Cognitive function Awake [facility] Work Phone: 08-22-2024 Cognitive function Level Of Cons ciousness Awake;Alert;Appropriate [facility] Work Phone: 04-08-2024 Cognitive function Awake;Alert;Appropriat e [facility] Work Phone: 04-23-2023 Cognitive function Voice/Name [facility] Work Phone: 05-06-2022 Cognitive function Appropriate [facility] Work Phone: 05-05-2022 Cognitive function Level Of Cons ciousness Awake;Alert;Appropriate;Fol lows Commands [facility] Work Phone: 04-24-2022 Cognitive function Level Of Cons ciousness Awake;Alert;Appropriate;Fol lows Commands [facility] Work Phone: 08-19-2014 Because of a physica l, mental, or emotional condition, do you have serious difficulty concentrating, remembering, or making decisions No 08/19/2014 10:45 AM EDT Rosina Jurado LPN No [facility] Clinical Notes 06-26-2011 to 01-03-2025 Note Date & Type Note Facility 01-03-2025 Procedure note [facility] 01-03-2025 Procedure note [facility] 01-03-2025 Discharge summary Note Date/Time January 03, 2025 3:26pm [facility] Medical Records Department [address] [place] [address] Discharge Summary 01/03/25 1158 MR#: [id number] Acct: [id number] Name: KESHIA ROJAS Rep #:[id number] : 1950 74 From: [place] PCP: Dr. Paulo Scott MD Status:AD M IN Location: [place] [id number] Providers Date of Admission: 12/27/24 Date of Discharge: 01/03/25 Primary Care Physician: Dr. Paulo Scott MD Consultations 12/27/24 15:21 Consult: Gastroenterology Routine Consulting Provider: [facility] Reason for Consult: GI bleed EMERGENT Consult: No MD Notified: Yes Date Notified: 12/27/24 Time Notified: 14:44 Method of Notification: ED Physician Initiated Reason For Visit: GI BLEED/ACUTE ANEMIA Diagnosis Discharge Diagnosis (1) GI bleed: Status: Acute Code(s): K92.2 - Gastrointestinal hemorrhage, unspecified Plan Patient is a 74-year-old lady who presented to the emergency department with abdominal pain with associated nausea and vomiting as well as melenic stools. Patient was found to be anemic with hemoglobin of 7.0 admitted to monitored bed for further management 1. Anemia ? Secondary to acute blood loss anemia suspected to be secondary to upper GI bleed exacerbated by the use of aspirin. Patient hemoglobin on admission was 7.0 patient was transfused with 1 unit PRBC started on Protonix drip after bolusadmitted to monitored bed H&H ordered consult placed to GI ? 12/29/2024; patient underwent EGD by Dr. Casper on 12/28/2024 findings and recommendations as below Impressions : - LA Grade C erosive esophagitis with bleeding. Biopsied. Treated with a heater probe. - Zakia-Quezada tear. Treated with a heater probe. - Hiatal hernia. - A fundoplication was found. The wrap appears loose. - No gross lesions in the entire stomach. - No gross lesions in the entire examined duodenum. Recommendations : -- Use Protonix (pantoprazole) 40 mg PO BID for 3 months. Patient hemoglobin down to 7.3 we will continue with monitoring. Repeated H&H at 1400 ? 12/31/2023; patient hemoglobin up to 7.9 01/01: H&H 8.3/25%. Platelet count 310. 01/02: H&H 8.7/26.9, better than she had 7.2 hemoglobin. 01/03 H&H improving. Patient had mild nausea no vomiting therefore IM Phenergangiven. Zofran and Compazine not effective. Had drowsiness after Phenergan and was monitored. Patient is doing well discussed with RN. Discharge to SNF. 2. Acute cystitis ? Patient urinalysis was abnormal and consistent with UTI started on ceftriaxone ? 12/29/2024; patient urine cultures so far positive for an alphahemolytic organism with greater than 100 K CFU and mixed gram-positive and gram-negative organisms with 25K-50K CFU final identification and sensitivities pending ? 12/30/2024; patient friend urine culture sensitivities reviewed positive for Aerococcus 01/01 on IV ceftriaxone 01/02: No leukocytosis. 01/03: Patient completed about 8 days of IV antibiotics. 3. Acute congestive heart failure?suspected heart failure with preserved ejection fraction ? Ordered 2D echo, proBNP. Patient started on diuretics placed on low-sodium diet in addition to fluid restriction and serial monitoring of electrolyte. Also ordered daily weights as well as strict input and output and discontinued patient IV fluids 12/31/2024; Had a good response to diuretic therapy and had a negative fluid balance of 4.7 L over the past 24 hours will continue with diuretic therapy was relaxing her fluid restriction per her request. 2D echo obtained did show normalLV size. Moderate concentric left ventricular hypertrophy. The left ventricular ejection fraction is 75 %.Left ventricular systolic function is normal. Resting LV gradient 4 mmHg.Valsalva LV gradient 47 mmHg. Plan is to continue with diuretic therapy for an additional day 01/01: Patient on room air, pulse ox 94%. Hypoxia resolved. 01/02: Repeat chest x-ray shows bibasilar atelectasis. Encouraged incentive spirometry and PEP. 01/03: Patient completed 7 days of IV ceftriaxone therefore discontinued 4. Peripheral arterial disease ? Patient is on antiplatelet held on admission 5. New onset diabetes mellitus type 2 ? Patient presented with hyperglycemia hemoglobin A1c ordered came back at 7.8. Subsequently placed on Accu-Cheks ACHS as well as 1800 ADA diet 6. Degenerative joint disease ? Pain meds as needed 7. Hepatosteatosis ? Consult was placed to GI on admission 8. Hypertension ? Blood pressure controlled, home medications continued with dose adjustment as needed 9. Mild intermittent asthma ? Currently not in exacerbation aerosol treatments as needed 10. GERD/history of Sarmiento's esophagus - Previous Robbie fundoplication; PPI as above 11. Hypothyroidism ? Patient is on levothyroxine home dose continued 12. Remote history of DVT ? Patient was treated appropriately 13. Class II obesity with BMI of 39.4 ? Complicating care weight loss advised 14. DVT prophylaxis ? Bilateral SCDs 15. Hypokalemia ? Corrected per protocol repeat labs ordered in a.m. to assess response to therapy 16. Atelectasis ? Did encourage the use of incentive spirometry 17. Physical deconditioning ? Requested for PT OT eval and social worker clinical to assist with discharge planning 18. 01/01: Patient has not moved bowels since admission. Senna S2 tablet twicedaily, MiraLAX ordered. Dulcolax also ordered 01/02: She did not had bowel movement yesterday. Dulcolax 20 mg 1 dose and soapsuds enema ordered 01/03: She had a bowel movement yesterday. She passed out once she was defecating and then another time she was trying to do physical therapy. Both were witnessed. No major injury. She recovered very quickly. Syncope possibledue to vasovagal reflex accompanied with physical deconditioning. Patient on Lasix 41 IV changed to oral. Orthostatic vitals ordered Discharge medication reconciliation done. Discharge follow-up instructions completed. Discharge process discussed with the patient and all questions wereanswered to patient's satisfaction. Follow with PCP in 1 to 2 weeks Total time spent, exact 35 minutes on discharge meds reconciliation, examination, coordination of care with nurses and ancillary staff, review of imaging and blood test and discussion with the patient on follow-up instructions. 12/27/24 11:23 Urine, Clean Catch Urine Culture - Final Aerococcus urinae Mixed Gram Pos & Gram Neg Org Laboratory Results 01/02/25 11:15: POC Glucose 237 H 01/02/25 12:20: POC Glucose 223 H 01/02/25 15:19: POC Glucose 209 H 01/02/25 20:39: POC Glucose 233 H 01/03/25 05:29: WBC 10.2, RBC 3.04 L, Hgb 8.9 L, Hct 28.1 L, MCV 92.4, MCH 29.3,MCHC 31.7 L, RDW Std Deviation 47.8 H, RDW Coeff of Ronnie 14.2, Plt Count 394, MPV9.3, Immature Gran % (Auto) 0.300, Neut % (Auto) 67.0, Lymph % (Auto) 16.9 L, [place] % (Auto) 8.0, Eos % (Auto) 7.1 H, Baso % (Auto) 0.7, Absolute Neuts (auto) 6.8, Absolute Lymphs (auto) 1.72, Nucleated RBC % 0, Sodium 136, Potassium 3.4, Chloride 95 L, Carbon Dioxide 30.9, Anion Gap 10, BUN 17, Creatinine 0.72, EstimCreat Clear Calc 67.93, Est GFR (MDRD) Non-Af 88, BUN/Creatinine Ratio 23.7 H, Glucose 158 H, Calcium 8.6 Laboratory Results 01/01/25 15:55: POC Glucose 208 H 01/01/25 21:39: POC Glucose 226 H 01/02/25 04:30: WBC 8.7, RBC 2.91 L, Hgb 8.7 L, Hct 26.9 L, MCV 92.4, MCH 29.9, MCHC 32.3, RDW Std Deviation 49.2 H, RDW Coeff of Ornn[place] 14.6, Plt Count 368, MPV 9.4, Immature Gran % (Auto) 0.700, Neut % (Auto) 58.6, Lymph % (Auto) 22.3, [place]% (Auto) 10.1 H, Eos % (Auto) 7.6 H, Baso % (Auto) 0.7, Absolute Neuts (auto) 5.1, Absolute Lymphs (auto) 1.93, Nucleated RBC % 0.2, Sodium 136, Potassium 3.5, Chloride 94 L, Carbon Dioxide 31.5, Anion Gap 10, BUN 21 H, Creatinine 0.84, Estim Creat Clear Calc 64.69, Est GFR (MDRD) Non-Af 73, BUN/Creatinine Ratio 25.0 H, Glucose 196 H, Calcium 8.9 01/02/25 06:46: POC Glucose 183 H Medications at Discharge Home Medications gabapentin 100 mg capsule 300 mg PO QHS PAIN 01/11/14 diazepam 5 mg tablet 5 mg PO QHS PRN anxiety 01/13/19 aspirin 81 mg tablet,delayed release 81 mg PO DAILY@0800 HEART 02/09/19 multivitamin 1 tab PO DAILY SUPPLEMENT 04/08/19 cholecalciferol (vitamin D3) 125 mcg (5,000 unit) capsule 125 mcg PO DAILY SUPPLEMENT 10/11/19 levothyroxine 88 mcg tablet 88 mcg PO DAILY THYROID 07/26/22 cranberry fruit concentrate 250 mg chewable tablet (Azo Cranberry) 250 mg PO DAILY URINARY HEALTH 01/31/23 amlodipine 5 mg tablet 5 mg PO DAILY HTN 10/15/24 lactulose 10 gram/15 mL oral solution 30 ml PO QHS 12/27/24 L.acidophil,salivari-Bifido bifidum-Strep thermoph 175 mg capsule 1 cap PO BID #0 caps 01/03/25 acetaminophen 325 mg tablet 650 mg (2 x 325 mg) PO Q6H PRN PRN Pain 1-10 Or Fever #0 tabs 01/03/25 furosemide 40 mg tablet 40 mg PO BIDLX #0 tabs 01/03/25 insulin glargine 100 unit/mL (3 mL) subcutaneous pen (Lantus Solostar U-100 Insulin) 15 unit (0.15 mL) subcut DAILY 1 month #4.5 mL 01/03/25 ipratropium 0.5 mg-albuterol 3 mg (2.5 mg base)/3 mL nebulization soln 3 ml inhalation Q4HWA.RT PRN #0 mL 01/03/25 ondansetron HCl (PF) 4 mg/2 mL injection solution 4 mg (2 mL) PO Q6H PRN Nausea/Vomiting #0 mL 01/03/25 pantoprazole 40 mg tablet,delayed release 40 mg PO BID #0 tabs 01/03/25 sennosides 8.6 mg-docusate sodium 50 mg tablet (Stimulant Laxative Plus) 2 tab PO BID #0 tabs 01/03/25 spironolactone 25 mg tablet 25 mg PO 1700 HTN 30 days #30 tabs 01/03/25 Physical Exam Narrative Seen and examined. She had good bowel movement yesterday. While defecating she passed out but wokeup good. While she was having physical therapy, she passed out yesterday. In the morning she was good but later on days she had mild nausea and vomiting, got better with IV Phenergan Physical exam General: Alert, Oriented x3, Cooperative. BMI 34.9 kg/m? HEENT: Atraumatic, PERRLA, EOMI, Normocephalic. Oral: No Gingival or Mucosal Lesions/ Ulcerations Neck: Supple, No JVD, Negative Carotid Bruits Chest wall/Lungs: Air entry diminished in bilateral lung bases. No crepitation/rhonchi Cardiovascular: Regular rate and rhythm, Normal S1,S2, No M/G/R Abdomen: Bowel Sounds Present, Soft, Non Tender, Non-Distended : No dysuria. No renal angle tenderness. No suprapubic tenderness. Extremities: No pitting edema, Capillary Refill Less than 3 Seconds Skin: No rashes, No breakdown Musculoskeletal: Muscle strength 4/5 at both knees and hip, left more than right. ROM decreased. Physically deconditioned. Neurological: Cranial nerves II-XII grossly intact, DTR 2+/4. No acute focal neurological deficit. Psych/Mental Status: Normal Affect, Appropriate. Weight / BMI Weight Weight: 199 lb Body Mass Index (BMI) 34.1 ABG / Lab / Microbiology Data 01/03/25 05:29 01/03/25 05:29 Laboratory: Laboratory Results - last 24 hr 01/02/25 15:19: POC Glucose 209 H 01/02/25 20:39: POC Glucose 233 H 01/03/25 05:29: WBC 10.2, RBC 3.04 L, Hgb 8.9 L, Hct 28.1 L, MCV 92.4, MCH 29.3,MCHC 31.7 L, RDW Std Deviation 47.8 H, RDW Coeff of Ornnie 14.2, Plt Count 394, MPV9.3, Immature Gran % (Auto) 0.300, Neut % (Auto) 67.0, Lymph % (Auto) 16.9 L, [place] % (Auto) 8.0, Eos % (Auto) 7.1 H, Baso % (Auto) 0.7, Absolute Neuts (auto) 6.8, Absolute Lymphs (auto) 1.72, Nucleated RBC % 0, Sodium 136, Potassium 3.4, Chloride 95 L, Carbon Dioxide 30.9, Anion Gap 10, BUN 17, Creatinine 0.72, EstimCreat Clear Calc 67.93, Est GFR (MDRD) Non-Af 88, BUN/Creatinine Ratio 23.7 H, Glucose 158 H, Calcium 8.6 01/03/25 11:28: POC Glucose 221 H Microbiology: Microbiology 12/27/24 11:23 Urine, Clean Catch Urine Culture - Final Aerococcus urinae Mixed Gram Pos & Gram Neg Org 12/27/24 11:23 Stool Stool Occult Blood (PIA) - Final Occult Blood Positive D/C Instructions DC O2, CPAP, BIPAP Needs Home O2 Discharge instructions: No Meaningful Use Info Meaningful Use Meaningful Use Diagnoses (Choose all that apply): None applicable Discharge Plan Admission Admit Date/Time: 12/27/24 14:42 Attending Provider: Clifton Wells Primary Care Provider: Paulo Scott Consulting Providers: Clifton Wells; Raul Casper; Sandie Rodriguez; Jacquelin Odell; Adelina Silvestre; Shelia Campos; Keshav Elizondo Discharge Orders/Prescriptions Prescriptions: New acetaminophen 325 mg Tablet 650 mg PO Q6H PRN PRN (Reason: Pain 1-10 Or Fever) Qty: 0 0RF ipratropium-albuterol 0.5 mg-3 mg(2.5 mg base)/3 mL Solution For Nebulization 3 ml inhalation Q4HWA.RT PRNQty: 0 0RF sennosides-docusate sodium [Stimulant Laxative Plus] 8.6-50 mg Tablet 2 tab PO BID Qty: 0 0RF pantoprazole 40 mg Tablet,Delayed Release (Dr/Ec) 40 mg PO BID Qty: 0 0RF L.acidoph,saliva-B.bif-S.therm 175 mg Capsule 1 cap PO BID Qty: 0 0RF furosemide 40 mg Tablet 40 mg PO BIDLX Qty: 0 0RF insulin glargine [Lantus Solostar U-100 Insulin] 100 unit/mL (3 mL) insulin pen 15 unit subcut DAILY 30 Days Qty: 4.5 3RF Rx Instructions: Hold if glucose less than 130 mg/dl ondansetron HCl (PF) 4 mg/2 mL Solution 4 mg PO Q6H PRN (Reason: Nausea/Vomiting) Qty: 0 0RF Continued multivitamin Tablet 1 tab PO DAILY diazepam 5 mg tablet 5 mg PO QHS PRN (Reason: anxiety) cholecalciferol (vitamin D3) 125 mcg (5,000 unit) capsule 125 mcg PO DAILY levothyroxine 88 mcg tablet 88 mcg PO DAILY amlodipine 5 mg tablet 5 mg PO DAILY Azo Cranberry 250 mg tablet,chewable 250 mg PO DAILY gabapentin 100 MG capsule 300 mg PO QHS aspirin 81 MG tablet 81 mg PO DAILY@0800 lactulose 10 gram/15 mL solution 30 ml PO QHS Patient Comments: TAKE (30 mL) by mouth at bedtime for 90 days. Changed spironolactone 25 mg tablet 25 mg PO 1700 30 Days Qty: 30 0RF Referrals / Follow Up: Paulo Scott MD [Primary Care Provider, Internal Medicine] Raul Casper DO [Med Staff - Active Staff, Gastroenterology] Adelina Silvestre PA [Med Staff - Adv Practice Prof, Gastroenterology] - Within 1 Month Disposition Disposition (needs filled in before D/C Order can be placed): Detention Facility Charges/Coding Visit Charges Inpatient E&M: 72316 Disch Hosp >30min 01/03/25 1426 <Electronically signed by Clifton Wells MD> Cosigner Signature (if applicable): CC: Dr. Paulo Scott MD; Dr. Clifton Wells MD~ Signed [facility] Work Phone: [phone]) 782-197310-20-2025 Procedure [facility] 01-03-2025 Procedure [facility]10-20-2025 Discharge summary Author Clifton Wells [facility] Note Date/Time January 03, 2025 1 :54pm [facility] Medical Records Department [address] [place] [address] Transfer to [facility] MR#: [id number] Acct: [id number] Name: KESHIA ROJAS Rep #:[id number] : 1950 74 From: Clifton Tony PCP: Dr. Paulo Scott MD Status:AD M IN Certification of patient admission REQUIRED AT TIME OF ADMISSION. I CERTIFY THAT POST-HOSPITAL ECF SERVICES ARE REQUIRED TO BE GIVEN ON AN IN-PATIENT BASIS BECAUSE OF THE ABOVE NAMED PATIENT'S NEED FOR SHELTER CARE ON A CONTINUING BASIS FOR THE CONDITION(S) FOR WHICH HE/SHE WAS RECEIVING IN-PATIENT HOSPITAL SERVICES PRIOR TO HIS/HER TRANSFER TO THE ECF. 01/03/25 1254<Electronically signed by Clifton Wells MD> Diet Diet Order/Speech Therapy: INPATIENT Hospital Diet / Speech Therapy Order(s) 12/30/24 11:26 Diet: Cardiac - Heart Healthy Food consistency:: Regular Liquid Consistency:: Regular/Thin Dietary Modifications:: Consistent Carbohydrate Fluid restriction:: 2000 mL DC O2, CPAP, BIPAP needs Home O2 Discharge instructions: Yes Type of respiratory needs?: Oxygen Oxygen frequency: Continuous Continuous oxygen liters per minute: 2 Problem/Diagnosis (1) GI bleed: Status: Acute Code(s): K92.2 - Gastrointestinal hemorrhage, unspecified Plan Patient is a 74-year-old lady who presented to the emergency department with abdominal pain with associated nausea and vomiting as well as melenic stools. Patient was found to be anemic with hemoglobin of 7.0 admitted to monitored bed for further management 1. Anemia ? Secondary to acute blood loss anemia suspected to be secondary to upper GI bleed exacerbated by the use of aspirin. Patient hemoglobin on admission was 7.0 patient was transfused with 1 unit PRBC started on Protonix drip after bolus admitted to monitored bed H&H ordered consult placed to GI ? 12/29/2024; patient underwent EGD by Dr. Casper on 12/28/2024 findings and recommendations as below Impressions : - LA Grade C erosive esophagitis with bleeding. Biopsied. Treated with a heater probe. - Zakia-Quezada tear. Treated with a heater probe. - Hiatal hernia. - A fundoplication was found. The wrap appears loose. - No gross lesions in the entire stomach. - No gross lesions in the entire examined duodenum. Recommendations : -- Use Protonix (pantoprazole) 40 mg PO BID for 3 months. Patient hemoglobin down to 7.3 we will continue with monitoring. Repeated H&H at 1400 ? 12/31/2023; patient hemoglobin up to 7.9 01/01: H&H 8.3/25%. Platelet count 310. 01/02: H&H 8.7/26.9, better than she had 7.2 hemoglobin. 01/03 H&H improving. 2. Acute cystitis ? Patient urinalysis was abnormal and consistent with UTI started on ceftriaxone ? 12/29/2024; patient urine cultures so far positive for an alphahemolytic organism with greater than 100 K CFU and mixed gram-positive and gram-negative organisms with 25K-50K CFU final identification and sensitivities pending ? 12/30/2024; patient friend urine culture sensitivities reviewed positive for Aerococcus 01/01 on IV ceftriaxone 01/02: No leukocytosis. H&H 3. Acute congestive heart failure?suspected heart failure with preserved ejection fraction ? Ordered 2D echo, proBNP. Patient started on diuretics placed on low-sodium diet in addition to fluid restriction and serial monitoring of electrolyte. Also ordered daily weights as well as strict input and output and discontinued patient IV fluids 12/31/2024; Had a good response to diuretic therapy and had a negative fluid balance of 4.7 L over the past 24 hours will continue with diuretic therapy was relaxing her fluid restriction per her request. 2D echo obtained did show normalLV size. Moderate concentric left ventricular hypertrophy. The left ventricular ejection fraction is 75 %.Left ventricular systolic function is normal. Resting LV gradient 4 mmHg.Valsalva LV gradient 47 mmHg. Plan is to continue with diuretic therapy for an additional day 01/01: Patient on room air, pulse ox 94%. Hypoxia resolved. 01/02: Repeat chest x-ray shows bibasilar atelectasis. Encouraged incentive spirometry and PEP. 01/03: Patient completed 7 days of IV ceftriaxone therefore discontinued 4. Peripheral arterial disease ? Patient is on antiplatelet held on admission 5. New onset diabetes mellitus type 2 ? Patient presented with hyperglycemia hemoglobin A1c ordered came back at 7.8. Subsequently placed on Accu-Cheks ACHS as well as 1800 ADA diet 6. Degenerative joint disease ? Pain meds as needed 7. Hepatosteatosis ? Consult was placed to GI on admission 8. Hypertension ? Blood pressure controlled, home medications continued with dose adjustment as needed 9. Mild intermittent asthma ? Currently not in exacerbation aerosol treatments as needed 10. GERD/history of Sarmiento's esophagus - Previous Robbie fundoplication; PPI as above 11. Hypothyroidism ? Patient is on levothyroxine home dose continued 12. Remote history of DVT ? Patient was treated appropriately 13. Class II obesity with BMI of 39.4 ? Complicating care weight loss advised 14. DVT prophylaxis ? Bilateral SCDs 15. Hypokalemia ? Corrected per protocol repeat labs ordered in a.m. to assess response to therapy 16. Atelectasis ? Did encourage the use of incentive spirometry 17. Physical deconditioning ? Requested for PT OT eval and social worker clinical to assist with discharge planning 18. 01/01: Patient has not moved bowels since admission. Senna S2 tablet twicedaily, MiraLAX ordered. Dulcolax also ordered 01/02: She did not had bowel movement yesterday. Dulcolax 20 mg 1 dose and soapsuds enema ordered 01/03: She had a bowel movement yesterday. She passed out once she was defecating and then another time she was trying to do physical therapy. Both were witnessed. No major injury. She recovered very quickly. Syncope possibledue to vasovagal reflex accompanied with physical deconditioning. Patient on Lasix 41 IV changed to oral. Orthostatic vitals ordered 12/27/24 11:23 Urine, Clean Catch Urine Culture - Final Aerococcus urinae Mixed Gram Pos & Gram Neg Org Laboratory Results 01/02/25 11:15: POC Glucose 237 H 01/02/25 12:20: POC Glucose 223 H 01/02/25 15:19: POC Glucose 209 H 01/02/25 20:39: POC Glucose 233 H 01/03/25 05:29: WBC 10.2, RBC 3.04 L, Hgb 8.9 L, Hct 28.1 L, MCV 92.4, MCH 29.3,MCHC 31.7 L, RDW Std Deviation 47.8 H, RDW Coeff of Ronnie 14.2, Plt Count 394, MPV9.3, Immature Gran % (Auto) 0.300, Neut % (Auto) 67.0, Lymph % (Auto) 16.9 L, [place] % (Auto) 8.0, Eos % (Auto) 7.1 H, Baso % (Auto) 0.7, Absolute Neuts (auto) 6.8, Absolute Lymphs (auto) 1.72, Nucleated RBC % 0, Sodium 136, Potassium 3.4, Chloride 95 L, Carbon Dioxide 30.9, Anion Gap 10, BUN 17, Creatinine 0.72, EstimCreat Clear Calc 67.93, Est GFR (MDRD) Non-Af 88, BUN/Creatinine Ratio 23.7 H, Glucose 158 H, Calcium 8.6 Laboratory Results 01/01/25 15:55: POC Glucose 208 H 01/01/25 21:39: POC Glucose 226 H 01/02/25 04:30: WBC 8.7, RBC 2.91 L, Hgb 8.7 L, Hct 26.9 L, MCV 92.4, MCH 29.9, MCHC 32.3, RDW Std Deviation 49.2 H, RDW Coeff of Ronnie 14.6, Plt Count 368, MPV 9.4, Immature Gran % (Auto) 0.700, Neut % (Auto) 58.6, Lymph % (Auto) 22.3, [place]% (Auto) 10.1 H, Eos % (Auto) 7.6 H, Baso % (Auto) 0.7, Absolute Neuts (auto) 5.1, Absolute Lymphs (auto) 1.93, Nucleated RBC % 0.2, Sodium 136, Potassium 3.5, Chloride 94 L, Carbon Dioxide 31.5, Anion Gap 10, BUN 21 H, Creatinine 0.84, Estim Creat Clear Calc 64.69, Est GFR (MDRD) Non-Af 73, BUN/Creatinine Ratio 25.0 H, Glucose 196 H, Calcium 8.9 01/02/25 06:46: POC Glucose 183 H Allergies/Procedures Done in Hospital Allergies latex Allergy (Unknown, Verified 12/27/24 09:55) PT UNSURE OF REACTION adhesive Allergy (Verified 12/27/24 09:55) Unknown benzocaine (From Cetacaine) Allergy (Verified 12/27/24 09:55) Unknown butamben (From Cetacaine) Allergy (Verified 12/27/24 09:55) Vomiting cortisone (Cortisone) Allergy (Verified 12/27/24 09:55) Unknown dipyridamole (From Aggrenox) Allergy (Verified 12/27/24 09:55) Unknown lansoprazole (From Prevacid) Allergy (Verified 12/27/24 09:55) Unknown meclizine Allergy (Verified 12/27/24 09:55) Unknown methylprednisolone acetate (From Depo-Medrol) Allergy (Verified 12/27/24 09:55) Angioedema metoprolol Allergy (Verified 12/27/24 09:55) Unknown omeprazole (From Prilosec) Allergy (Verified 12/27/24 09:55) Unknown omeprazole magnesium (From Prilosec) Allergy (Verified 12/27/24 09:55) Unknown oxybutynin chloride (From Ditropan) Allergy (Verified 12/27/24 09:55) Unknown povidone-iodine (From Betadine) Allergy (Verified 12/27/24 09:55) Unknown sulfamethoxazole (From Bactrim) Allergy (Verified 12/27/24 09:55) Unknown tegaserod (From Zelnorm) Allergy (Verified 12/27/24 09:55) Hives tegaserod hydrogen maleate (From Zelnorm) Allergy (Verified 12/27/24 09:55) Unknown tetracaine (From Cetacaine) Allergy (Verified 12/27/24 09:55) Unknown tolterodine tartrate (From Detrol) Allergy (Verified 12/27/24 09:55) Unknown trimethoprim (From Bactrim) Allergy (Verified 12/27/24 09:55) Unknown lisinopril Adverse Reaction (Intermediate, Verified 12/27/24 09:55) Angioedema question if try allergy adhesive tape Adverse Reaction (Verified 12/27/24 09:55) Rash PAPER TAPE codeine Adverse Reaction (Verified 12/27/24 09:55) Unknown mirabegron (From Myrbetriq) Adverse Reaction (Verified 12/27/24 09:55) Other tizanidine Adverse Reaction (Verified 12/27/24 09:55) Other vaccine adjuvant system, AS01B liposomal (From Shingrix (PF)) Adverse Reaction (Verified 12/27/24 09:55) Rash varicella-zoster virus glycoprotein E, recombinant (From Shingrix (PF)) Adverse Reaction (Verified 12/27/24 09:55) Rash Type of Care/Length of Stay Estimated LOS: Convalescent Care Less Than 30 days Type of Care Needed: Skilled Rehab Potential: Good Prognosis: Good Additional Orders/Day of Discharge Day of Discharge: 01/03/25 Dietary and Speech Recommendations Dietitian Recommendations/Changes: Adjust to cardiac; consistent carbohydrate diet with 1500mL fluid restriction. Will monitor weight trends. At time of discharge recommend pt follow a cardiac; CCD with fluid restriction per MD. Discharge Plan Admission Admit Date/Time: 12/27/24 14:42 Attending Provider: Clifton Wells Primary Care Provider: Paulo Scott Consulting Providers: Clifton Wells; Raul Casper; Sandie Rodriguez; Jacquelin Odell; Adelina Silvestre; Shelia Campos; Keshav Elizondo Discharge Orders/Prescriptions Prescriptions: New acetaminophen 325 mg Tablet 650 mg PO Q6H PRN PRN (Reason: Pain 1-10 Or Fever) Qty: 0 0RF ipratropium-albuterol 0.5 mg-3 mg(2.5 mg base)/3 mL Solution For Nebulization 3 ml inhalation Q4HWA.RT PRNQty: 0 0RF sennosides-docusate sodium [Stimulant Laxative Plus] 8.6-50 mg Tablet 2 tab PO BID Qty: 0 0RF pantoprazole 40 mg Tablet,Delayed Release (Dr/Ec) 40 mg PO BID Qty: 0 0RF L.acidoph,saliva-B.bif-S.therm 175 mg Capsule 1 cap PO BID Qty: 0 0RF furosemide 40 mg Tablet 40 mg PO BIDLX Qty: 0 0RF insulin glargine [Lantus Solostar U-100 Insulin] 100 unit/mL (3 mL) insulin pen 15 unit subcut DAILY 30 Days Qty: 4.5 3RF Rx Instructions: Hold if glucose less than 130 mg/dl ondansetron HCl (PF) 4 mg/2 mL Solution 4 mg PO Q6H PRN (Reason: Nausea/Vomiting) Qty: 0 0RF Continued multivitamin Tablet 1 tab PO DAILY diazepam 5 mg tablet 5 mg PO QHS PRN (Reason: anxiety) cholecalciferol (vitamin D3) 125 mcg (5,000 unit) capsule 125 mcg PO DAILY levothyroxine 88 mcg tablet 88 mcg PO DAILY amlodipine 5 mg tablet 5 mg PO DAILY Azo Cranberry 250 mg tablet,chewable 250 mg PO DAILY gabapentin 100 MG capsule 300 mg PO QHS aspirin 81 MG tablet 81 mg PO DAILY@0800 lactulose 10 gram/15 mL solution 30 ml PO QHS Patient Comments: TAKE (30 mL) by mouth at bedtime for 90 days. Changed spironolactone 25 mg tablet 25 mg PO 1700 30 Days Qty: 30 0RF Referrals / Follow Up: Paulo Scott MD [Primary Care Provider, Internal Medicine] Disposition Disposition (needs filled in before D/C Order can be placed): Detention Facility 01/03/25 125 <Electronically signed by Clifton Wells MD> Cosigner Signature (if applicable): CC: DESIGNER ARCHITECT-C Sandie Rodriguez; DESIGNER ARCHITECT-C Jacquelin Odell; Dr. Keshav Elizondo MD; Dr. Shelia Campos DO; Dr. Paulo Scott MD; Dr. Clifton Wells MD; LEONEL Esposito; Raul Casper DO ~ [facility] Work Phone: 1(897) 407-419610-20-2025 Consult note Author Arnie Rogel [facility] Note Date/Time January 03, 2025 6 :19pm [facility] Medical Records Department [address] [place] [address] Counseling Note - Pharmacy 01/03/25 1219 MR#: [id number] Acct: [id number] Name: KESHIA ROJAS Rep #:[id number] : 1950 74 From: Arnie Rogel PCP: Dr. Paulo Scott MD Status:AD M IN Y [facility] [place] Med Reconciliation Pharmacy Service has performed discharge medication reconciliation for this patient. The patient's discharge medication list was reviewed for discrepancies and discrepancies were resolved. Medications at Discharge Home Medications gabapentin 100 mg capsule 300 mg PO QHS PAIN 10/28/14 diazepam 5 mg tablet 5 mg PO QHS PRN anxiety 01/13/19 aspirin 81 mg tablet,delayed release 81 mg PO DAILY@0800 HEART 02/09/19 multivitamin 1 tab PO DAILY SUPPLEMENT 04/08/19 cholecalciferol (vitamin D3) 125 mcg (5,000 unit) capsule 125 mcg PO DAILY SUPPLEMENT 10/11/19 levothyroxine 88 mcg tablet 88 mcg PO DAILY THYROID 07/26/22 cranberry fruit concentrate 250 mg chewable tablet (Azo Cranberry) 250 mg PO DAILY URINARY HEALTH 01/31/23 amlodipine 5 mg tablet 5 mg PO DAILY HTN 10/15/24 lactulose 10 gram/15 mL oral solution 30 ml PO QHS 12/27/24 L.acidophil,salivari-Bifido bifidum-Strep thermoph 175 mg capsule 1 cap PO BID #0 caps 01/03/25 acetaminophen 325 mg tablet 650 mg (2 x 325 mg) PO Q6H PRN PRN Pain 1-10 Or Fever #0 tabs 01/03/25 furosemide 40 mg tablet 40 mg PO BIDLX #0 tabs 01/03/25 insulin glargine 100 unit/mL (3 mL) subcutaneous pen (Lantus Solostar U-100 Insulin) 15 unit (0.15 mL) subcut DAILY 1 month #4.5 mL 01/03/25 ipratropium 0.5 mg-albuterol 3 mg (2.5 mg base)/3 mL nebulization soln 3 ml inhalation Q4HWA.RT PRN #0 mL 01/03/25 ondansetron HCl (PF) 4 mg/2 mL injection solution 4 mg (2 mL) PO Q6H PRN Nausea/Vomiting #0 mL 01/03/25 pantoprazole 40 mg tablet,delayed release 40 mg PO BID #0 tabs 01/03/25 sennosides 8.6 mg-docusate sodium 50 mg tablet (Stimulant Laxative Plus) 2 tab PO BID #0 tabs 01/03/25 spironolactone 25 mg tablet 25 mg PO 1700 HTN 30 days #30 tabs 01/03/25 01/03/25 1219 <Electronically signed by Arnie Salinas r> Date _ Arnie Ash Signature (if applicable): Date CC: ~ Signed [facility] Work Phone: 1(127) 388-559310-20-2025 Hospital Discharge instructionsAdditional Instructions Date of Discharge: 01/03/25[facility] Work Phone: 1(546) 286-670310-20-2025 [facility]10-19-2025 Progress note Author Clifton Wells [facility] Note Date/Time January 02, 2025 1 2:19pm [facility] Medical Records Department [address] [place] [id number] Progress Note - Hospitalist 01/02/25 1113 MR#: [id number] Acct: [id number] Name: KESHIA ROJAS Rep #:[id number] : 1950 74 From: Clifton Tony PCP: Dr. Paulo Scott MD Status:AD M IN Location: [place] [address] Reason for Visit Chief Complaint: Melena/abdominal pain Objective Data Objective Data Vital Signs: Vital Signs Temp Pulse Resp BP Pulse Ox O2 Del Method O2 Flow Rate 97.8 F 86 17 106/67 96 Nasal Cannula 2 01/02/25 09:16 01/02/25 09:16 01/02/25 09:16 01/02/25 09:16 01/02/25 09:16 01/02/25 10:00 01/02/25 10:00 Oxygen Flow Rate (L/min) 2 Oxygen Delivery Method Nasal Cannula Weight: 203 lb 8 oz Body Mass Index (BMI) 34.9 Intake & Output: Intake and Output for Last 24 Hours 12/31/24 01/01/25 01/02/25 23:59 23:59 23:59 Intake Total 1000 / 1200 890 / 890 250 / 250 Output Total 2826 / 3626 2600 / 2600 Balance -1826 / -2426 -1710 / -1710 250 / 250 Lab / Micro Data 01/02/25 04:30 01/02/25 04:30 Labs: Laboratory Results - last 24 hr 01/01/25 15:55: POC Glucose 208 H 01/01/25 21:39: POC Glucose 226 H 01/02/25 04:30: WBC 8.7, RBC 2.91 L, Hgb 8.7 L, Hct 26.9 L, MCV 92.4, MCH 29.9, MCHC 32.3, RDW Std Deviation 49.2 H, RDW Coeff of Ronnie 14.6, Plt Count 368, MPV 9.4, Immature Gran % (Auto) 0.700, Neut % (Auto) 58.6, Lymph % (Auto) 22.3, [place]% (Auto) 10.1 H, Eos % (Auto) 7.6 H, Baso % (Auto) 0.7, Absolute Neuts (auto) 5.1, Absolute Lymphs (auto) 1.93, Nucleated RBC % 0.2, Sodium 136, Potassium 3.5, Chloride 94 L, Carbon Dioxide 31.5, Anion Gap 10, BUN 21 H, Creatinine 0.84, Estim Creat Clear Calc 64.69, Est GFR (MDRD) Non-Af 73, BUN/Creatinine Ratio 25.0 H, Glucose 196 H, Calcium 8.9 01/02/25 06:46: POC Glucose 183 H Micro: Microbiology 12/27/24 11:23 Urine, Clean Catch Urine Culture - Final Aerococcus urinae Mixed Gram Pos & Gram Neg Org 12/27/24 11:23 Stool Stool Occult Blood (PIA) - Final Occult Blood Positive Radiography Diagnostic Testing: Radiology Impression Chest X-Ray 01/01/25 21:10 IMPRESSION: Left basilar opacity favoring atelectasis over pneumonia. Elevation of the left hemidiaphragm. Hiatal hernia. Reading Location: [id number] Physical Exam Narrative Seen and examined. Complain of not moving bowel since he has been here. She did not have a BM yesterday after giving stool softener. Passing flatus. She felt shortness of breath and congestion and Lasix was given last night and chest x-ray was done which shows bilateral basilar atelectasis. Weakness of lower legs. Has not walked. Usually she uses cane/walker when she walks outside at home. She states she has torn left knee meniscus in the past Physical exam General: Alert, Oriented x3, Cooperative. BMI 34.9 kg/m? HEENT: Atraumatic, PERRLA, EOMI, Normocephalic. Oral: No Gingival or Mucosal Lesions/ Ulcerations Neck: Supple, No JVD, Negative Carotid Bruits Chest wall/Lungs: Air entry diminished in bilateral lung bases. No crepitation/rhonchi Cardiovascular: Regular rate and rhythm, Normal S1,S2, No M/G/R Abdomen: Bowel Sounds Present, Soft, Non Tender, Non-Distended : No dysuria. No renal angle tenderness. No suprapubic tenderness. Extremities: No pitting edema, Capillary Refill Less than 3 Seconds Skin: No rashes, No breakdown Musculoskeletal: Muscle strength 4/5 at both knees and hip, left more than right. ROM decreased Neurological: Cranial nerves II-XII grossly intact, DTR 2+/4. No acute focal neurological deficit. Psych/Mental Status: Normal Affect, Appropriate. Assessment & Plan Assessment/Plan (1) GI bleed: PLAN: Plan Patient is a 74-year-old lady who presented to the emergency department with abdominal pain with associated nausea and vomiting as well as melenic stools. Patient was found to be anemic with hemoglobin of 7.0 admitted to monitored bed for further management 1. Anemia ? Secondary to acute blood loss anemia suspected to be secondary to upper GI bleed exacerbated by the use of aspirin. Patient hemoglobin on admission was 7.0 patient was transfused with 1 unit PRBC started on Protonix drip after bolusadmitted to monitored bed H&H ordered consult placed to GI ? 12/29/2024; patient underwent EGD by Dr. Casper on 12/28/2024 findings and recommendations as below Impressions : - LA Grade C erosive esophagitis with bleeding. Biopsied. Treated with a heater probe. - Zakia-Quezada tear. Treated with a heater probe. - Hiatal hernia. - A fundoplication was found. The wrap appears loose. - No gross lesions in the entire stomach. - No gross lesions in the entire examined duodenum. Recommendations : -- Use Protonix (pantoprazole) 40 mg PO BID for 3 months. Patient hemoglobin down to 7.3 we will continue with monitoring. Repeated H&H at 1400 ? 12/31/2023; patient hemoglobin up to 7.9 01/01: H&H 8.3/25%. Platelet count 310. 01/02: H&H 8.7/26.9, better than she had 7.2 hemoglobin. 2. Acute cystitis ? Patient urinalysis was abnormal and consistent with UTI started on ceftriaxone ? 12/29/2024; patient urine cultures so far positive for an alphahemolytic organism with greater than 100 K CFU and mixed gram-positive and gram-negative organisms with 25K-50K CFU final identification and sensitivities pending ? 12/30/2024; patient friend urine culture sensitivities reviewed positive for Aerococcus 01/01 on IV ceftriaxone 01/02: No leukocytosis. H&H 3. Acute congestive heart failure?suspected heart failure with preserved ejection fraction ? Ordered 2D echo, proBNP. Patient started on diuretics placed on low-sodium diet in addition to fluid restriction and serial monitoring of electrolyte. Also ordered daily weights as well as strict input and output and discontinued patient IV fluids 12/31/2024; Had a good response to diuretic therapy and had a negative fluid balance of 4.7 L over the past 24 hours will continue with diuretic therapy was relaxing her fluid restriction per her request. 2D echo obtained did show normalLV size. Moderate concentric left ventricular hypertrophy. The left ventricular ejection fraction is 75 %.Left ventricular systolic function is normal. Resting LV gradient 4 mmHg.Valsalva LV gradient 47 mmHg. Plan is to continue with diuretic therapy for an additional day 01/01: Patient on room air, pulse ox 94%. Hypoxia resolved. 01/02: Repeat chest x-ray shows bibasilar atelectasis. Encouraged incentive spirometry and PEP. 4. Peripheral arterial disease ? Patient is on antiplatelet held on admission 5. New onset diabetes mellitus type 2 ? Patient presented with hyperglycemia hemoglobin A1c ordered came back at 7.8. Subsequently placed on Accu-Cheks ACHS as well as 1800 ADA diet 6. Degenerative joint disease ? Pain meds as needed 7. Hepatosteatosis ? Consult was placed to GI on admission 8. Hypertension ? Blood pressure controlled, home medications continued with dose adjustment as needed 9. Mild intermittent asthma ? Currently not in exacerbation aerosol treatments as needed 10. GERD/history of Sarmiento's esophagus - Previous Robbie fundoplication; PPI as above 11. Hypothyroidism ? Patient is on levothyroxine home dose continued 12. Remote history of DVT ? Patient was treated appropriately 13. Class II obesity with BMI of 39.4 ? Complicating care weight loss advised 14. DVT prophylaxis ? Bilateral SCDs 15. Hypokalemia ? Corrected per protocol repeat labs ordered in a.m. to assess response to therapy 16. Atelectasis ? Did encourage the use of incentive spirometry 17. Physical deconditioning ? Requested for PT OT eval and social worker clinical to assist with discharge planning 18. 01/01: Patient has not moved bowels since admission. Senna S2 tablet twicedaily, MiraLAX ordered. Dulcolax also ordered 01/02: She did not had bowel movement yesterday. Dulcolax 20 mg 1 dose and soapsuds enema ordered Microbiology Past 72 Hours 12/27/24 11:23 Urine, Clean Catch Urine Culture - Final Aerococcus urinae Mixed Gram Pos & Gram Neg Org Laboratory Results 01/01/25 15:55: POC Glucose 208 H 01/01/25 21:39: POC Glucose 226 H 01/02/25 04:30: WBC 8.7, RBC 2.91 L, Hgb 8.7 L, Hct 26.9 L, MCV 92.4, MCH 29.9, MCHC 32.3, RDW Std Deviation 49.2 H, RDW Coeff of Ronnie 14.6, Plt Count 368, MPV 9.4, Immature Gran % (Auto) 0.700, Neut % (Auto) 58.6, Lymph % (Auto) 22.3, [place]% (Auto) 10.1 H, Eos % (Auto) 7.6 H, Baso % (Auto) 0.7, Absolute Neuts (auto) 5.1, Absolute Lymphs (auto) 1.93, Nucleated RBC % 0.2, Sodium 136, Potassium 3.5, Chloride 94 L, Carbon Dioxide 31.5, Anion Gap 10, BUN 21 H, Creatinine 0.84, Estim Creat Clear Calc 64.69, Est GFR (MDRD) Non-Af 73, BUN/Creatinine Ratio 25.0 H, Glucose 196 H, Calcium 8.9 01/02/25 06:46: POC Glucose 183 H Charges/Coding Visit Charges Inpatient E&M: 48226 Subs Hosp L2 10/19/25 1119 <Electronically signed by Clifton Wells MD> Cosigner Signature (if applicable): CC: ~ Signed [facility] Work Phone: 1(284) 318-650810-18-2025 Radiology Diagnostic study [facility]10-18-2025 Radiology Diagnostic study [facility]10-18-2025 Progress note Author Clifton Wells [facility] Note Date/Time January 01, 2025 8 :07pm [facility] Medical Records Department [address] [place] [address] Progress Note - Hospitalist 01/01/25 1223 MR#: [id number] Acct: [id number] Name: KESHIA ROJAS Rep #:[id number] : 1950 74 From: Clifton Tony PCP: Dr. Paulo Scott MD Status:AD M IN Location: [place] [address] Reason for Visit Chief Complaint: Melena/abdominal pain Objective Data Objective Data Vital Signs: Vital Signs Temp Pulse Resp BP Pulse Ox O2 Del Method O2 Flow Rate 98.1 F 82 18 101/69 93 Room Air 2 01/01/25 08:20 01/01/25 10:49 01/01/25 10:49 01/01/25 08:20 01/01/25 08:20 01/01/25 08:20 12/31/24 17:50 Oxygen Flow Rate (L/min) 2 Oxygen Delivery Method Room Air Weight: 214 lb 4.629 oz Body Mass Index (BMI) 36.8 Intake & Output: Intake and Output for Last 24 Hours 12/30/24 12/31/24 01/01/25 23:59 23:59 23:59 Intake Total 50 / 50 1000 / 1200 570 / 570 Output Total 4000 / 5575 2826 / 3626 1800 / 1800 Balance -3950 / -5525 -1826 / -2426 -1230 / -1230 Lab / Micro Data 12/31/24 05:38 12/31/24 05:38 Labs: Laboratory Results - last 24 hr 12/31/24 09:06: POC Glucose 200 H 12/31/24 17:22: POC Glucose 243 H 12/31/24 21:15: POC Glucose 212 H 01/01/25 06:43: POC Glucose 176 H 01/01/25 10:02: POC Glucose 263 H Micro: Microbiology 12/27/24 11:23 Urine, Clean Catch Urine Culture - Final Aerococcus urinae Mixed Gram Pos & Gram Neg Org 12/27/24 11:23 Stool Stool Occult Blood (PIA) - Final Occult Blood Positive Physical Exam Narrative Seen and examined. Complain of not moving bowel since he has been here. Passing flatus Weakness of lower legs. Has not walked. Usually she uses cane/walker when she walks outside at home. She states she has torn left knee meniscus in the past Physical exam General: Alert, Oriented x3, Cooperative HEENT: Atraumatic, PERRLA, EOMI, Normocephalic. Oral: No Gingival or Mucosal Lesions/ Ulcerations Neck: Supple, No JVD, Negative Carotid Bruits Chest wall/Lungs: Air entry diminished in bilateral lung bases. No crepitation/rhonchi Cardiovascular: Regular rate and rhythm, Normal S1,S2, No M/G/R Abdomen: Bowel Sounds Present, Soft, Non Tender, Non-Distended : No dysuria. No renal angle tenderness. No suprapubic tenderness. Extremities: No edema, Capillary Refill Less than 3 Seconds Skin: No rashes, No breakdown Musculoskeletal: Muscle strength 4/5 at both knees and hip, left more than right. ROM decreased Neurological: Cranial nerves II-XII grossly intact, DTR 2+/4. No acute focal neurological deficit. Psych/Mental Status: Normal Affect, Appropriate. Assessment & Plan Assessment/Plan (1) GI bleed: PLAN: Plan Patient is a 74-year-old lady who presented to the emergency department with abdominal pain with associated nausea and vomiting as well as melenic stools. Patient was found to be anemic with hemoglobin of 7.0 admitted to monitored bed for further management 1. Anemia ? Secondary to acute blood loss anemia suspected to be secondary to upper GI bleed exacerbated by the use of aspirin. Patient hemoglobin on admission was 7.0 patient was transfused with 1 unit PRBC started on Protonix drip after bolusadmitted to monitored bed H&H ordered consult placed to GI ? 12/29/2024; patient underwent EGD by Dr. Casper on 12/28/2024 findings and recommendations as below Impressions : - LA Grade C erosive esophagitis with bleeding. Biopsied. Treated with a heater probe. - Zakia-Quezada tear. Treated with a heater probe. - Hiatal hernia. - A fundoplication was found. The wrap appears loose. - No gross lesions in the entire stomach. - No gross lesions in the entire examined duodenum. Recommendations : -- Use Protonix (pantoprazole) 40 mg PO BID for 3 months. Patient hemoglobin down to 7.3 we will continue with monitoring. Repeated H&H at 1400 ? 12/31/2023; patient hemoglobin up to 7.9 01/01: H&H 8.3/25%. Platelet count 310. 2. Acute cystitis ? Patient urinalysis was abnormal and consistent with UTI started on ceftriaxone ? 12/29/2024; patient urine cultures so far positive for an alphahemolytic organism with greater than 100 K CFU and mixed gram-positive and gram-negative organisms with 25K-50K CFU final identification and sensitivities pending ? 12/30/2024; patient friend urine culture sensitivities reviewed positive for Aerococcus 01/01 on IV ceftriaxone 3. Acute congestive heart failure?suspected heart failure with preserved ejection fraction ? Ordered 2D echo, proBNP. Patient started on diuretics placed on low-sodium diet in addition to fluid restriction and serial monitoring of electrolyte. Also ordered daily weights as well as strict input and output and discontinued patient IV fluids 12/31/2024; Had a good response to diuretic therapy and had a negative fluid balance of 4.7 L over the past 24 hours will continue with diuretic therapy was relaxing her fluid restriction per her request. 2D echo obtained did show normalLV size. Moderate concentric left ventricular hypertrophy. The left ventricular ejection fraction is 75 %.Left ventricular systolic function is normal. Resting LV gradient 4 mmHg.Valsalva LV gradient 47 mmHg. Plan is to continue with diuretic therapy for an additional day 01/01: Patient on room air, pulse ox 94%. Hypoxia resolved. 4. Peripheral arterial disease ? Patient is on antiplatelet held on admission 5. New onset diabetes mellitus type 2 ? Patient presented with hyperglycemia hemoglobin A1c ordered came back at 7.8. Subsequently placed on Accu-Cheks ACHS as well as 1800 ADA diet 6. Degenerative joint disease ? Pain meds as needed 7. Hepatosteatosis ? Consult was placed to GI on admission 8. Hypertension ? Blood pressure controlled, home medications continued with dose adjustment as needed 9. Mild intermittent asthma ? Currently not in exacerbation aerosol treatments as needed 10. GERD/history of Sarmiento's esophagus - Previous Robbie fundoplication; PPI as above 11. Hypothyroidism ? Patient is on levothyroxine home dose continued 12. Remote history of DVT ? Patient was treated appropriately 13. Class II obesity with BMI of 39.4 ? Complicating care weight loss advised 14. DVT prophylaxis ? Bilateral SCDs 15. Hypokalemia ? Corrected per protocol repeat labs ordered in a.m. to assess response to therapy 16. Atelectasis ? Did encourage the use of incentive spirometry 17. Physical deconditioning ? Requested for PT OT eval and social worker clinical to assist with discharge planning 18. Patient has not moved bowels since admission. Senna S2 tablet twice daily,MiraLAX ordered. Dulcolax also ordered Microbiology Past 72 Hours 12/27/24 11:23 Urine, Clean Catch Urine Culture - Final Aerococcus urinae Mixed Gram Pos & Gram Neg Org Laboratory Results 12/31/24 21:15: POC Glucose 212 H 01/01/25 06:43: POC Glucose 176 H 01/01/25 10:02: POC Glucose 263 H 01/01/25 15:55: POC Glucose 208 H Charges/Coding Visit Charges Inpatient E&M: 59957 Subs Hosp L2 01/01/257 <Electronically signed by Clifton Wells MD> Cosigner Signature (if applicable): CC: ~ Signed [facility] Work Phone: 1(908) 800-197310-17-2025 Progress note Author Keshav Elizondo [facility] Note Date/Time December 31, 2024 1 0:39am [facility] Medical Records Department [address] [place] [address] Progress Note - Hospitalist 12/31/24 0929 MR#: [id number] Acct: [id number] Name: KESHIA ROJAS Rep #:[id number] : 1950 74 From: Keshav Elizondo MD PCP: Dr. Paulo Scott MD Status:AD M IN Location: [place] [address] Reason for Visit Chief Complaint: Melena/abdominal pain Subjective Subjective Patient seen, currently on oxygen. Had a good response to diuretic therapy and had a negative fluid balance of 4.7 L over the past 24 hours will continue with diuretic therapy was relaxing her fluid restriction per her request. Diagnosticdata reviewed significant for hypokalemia of 3.1 Objective Data Objective Data Vital Signs: Vital Signs Temp Pulse Resp BP Pulse Ox O2 Del Method O2 Flow Rate 98.6 F 88 16 115/66 95 Nasal Cannula 2 12/31/24 09:00 12/31/24 09:00 12/31/24 09:00 12/31/24 09:00 12/31/24 09:00 12/31/24 09:00 12/31/24 09:00 Oxygen Flow Rate (L/min) 2 Oxygen Delivery Method Nasal Cannula Weight: 97.5 kg Body Mass Index (BMI) 36.8 Intake & Output: Intake and Output for Last 24 Hours 12/29/24 12/30/24 12/31/24 23:59 23:59 23:59 Intake Total 50 / 50 50 / 50 250 / 250 Output Total 4300 / 4800 4000 / 5575 1575 / 1575 Balance -4250 / -4750 -3950 / -5525 -1325 / -1325 Lab / Micro Data 12/31/24 05:38 12/31/24 05:38 Labs: Laboratory Results - last 24 hr 12/30/24 05:47: POC Glucose 161 H 12/30/24 10:42: Hgb 7.9 L, Hct 25.0 L 12/30/24 11:08: POC Glucose 232 H 12/30/24 16:47: POC Glucose 268 H 12/30/24 22:00: POC Glucose 217 H 12/31/24 05:38: WBC 8.9, RBC 2.70 L, Hgb 8.3 L, Hct 25.2 L, MCV 93.3, MCH 30.7, MCHC 32.9, RDW Std Deviation 50.8 H, RDW Coeff of Ronnie 15.2 H, Plt Count 310, MPV9.7, Immature Gran % (Auto) 0.500, Neut % (Auto) 64.9, Lymph % (Auto) 20.1, [place]% (Auto) 9.7, Eos % (Auto) 4.2, Baso % (Auto) 0.6, Absolute Neuts (auto) 5.8, Absolute Lymphs (auto) 1.78, Nucleated RBC % 0, Sodium 139, Potassium 3.1 L, Chloride 99, Carbon Dioxide 29.3, Anion Gap 11, BUN 14, Creatinine 0.77, Estim Creat Clear Calc 69.95, Est GFR (MDRD) Non-Af 81, BUN/Creatinine Ratio 18.7, Glucose 167 H, Calcium 8.5, NT pro BNP II 154 Micro: Microbiology 12/27/24 11:23 Urine, Clean Catch Urine Culture - Final Aerococcus urinae Mixed Gram Pos & Gram Neg Org 12/27/24 11:23 Stool Stool Occult Blood (PIA) - Final Occult Blood Positive Radiography Diagnostic Testing: Radiology Impression Echocardiogram 12/30/24 11:23 Interpretation Summary Normal LV size. Moderate concentric left ventricular hypertrophy. The left ventricular ejection fraction is 75 %. Left ventricular systolic function is normal. Resting LV gradient 4 mmHg. Valsalva LV gradient 47 mmHg. Ordering Physician: Keshav Elizodno Referring Physician: Paulo Scott M.D. Performed By: Mckayla Terry RCS Physical Exam Narrative GENERAL: cooperative HEENT: Atraumatic; normocephalic EYES; Anicteric, Normal Conjunctiva NECK; supple, normal thyroid, RESPIRATORY: Diminished to auscultation ? With bibasilar wheezes and crackles CARDIOVASCULAR: Regular S1 S2, GI: soft, normoactive bowel sounds, : No Renal angle tenderness; EXTREMITIES: Bipedal edema MUSCULOSKELETAL: no muscle wasting NEURO: Awake; no lateralizing signs. SKIN: No Rash PSYCH; Flat affect Assessment & Plan Assessment/Plan (1) GI bleed: PLAN: Plan Patient is a 74-year-old lady who presented to the emergency department with abdominal pain with associated nausea and vomiting as well as melenic stools. Patient was found to be anemic with hemoglobin of 7.0 admitted to monitored bed for further management 1. Anemia ? Secondary to acute blood loss anemia suspected to be secondary to upper GI bleed exacerbated by the use of aspirin. Patient hemoglobin on admission was 7.0 patient was transfused with 1 unit PRBC started on Protonix drip after bolusadmitted to monitored bed H&H ordered consult placed to GI ? 12/29/2024; patient underwent EGD by Dr. Casper on 12/28/2024 findings and recommendations as below Impressions : - LA Grade C erosive esophagitis with bleeding. Biopsied. Treated with a heater probe. - Zakia-Quezada tear. Treated with a heater probe. - Hiatal hernia. - A fundoplication was found. The wrap appears loose. - No gross lesions in the entire stomach. - No gross lesions in the entire examined duodenum. Recommendations : -- Use Protonix (pantoprazole) 40 mg PO BID for 3 months. Patient hemoglobin down to 7.3 we will continue with monitoring. Repeated H&H at 1400 ? 12/31/2023; patient hemoglobin up to 7.9 2. Acute cystitis ? Patient urinalysis was abnormal and consistent with UTI started on ceftriaxone ? 12/29/2024; patient urine cultures so far positive for an alphahemolytic organism with greater than 100 K CFU and mixed gram-positive and gram-negative organisms with 25K-50K CFU final identification and sensitivities pending ? 12/30/2024; patient friend urine culture sensitivities reviewed positive for Aerococcus 3. Acute congestive heart failure?suspected heart failure with preserved ejection fraction ? Ordered 2D echo, proBNP. Patient started on diuretics placed on low-sodium diet in addition to fluid restriction and serial monitoring of electrolyte. Also ordered daily weights as well as strict input and output and discontinued patient IV fluids 12/31/2024; Had a good response to diuretic therapy and had a negative fluid balance of 4.7 L over the past 24 hours will continue with diuretic therapy was relaxing her fluid restriction per her request. 2D echo obtained did show normalLV size. Moderate concentric left ventricular hypertrophy. The left ventricular ejection fraction is 75 %.Left ventricular systolic function is normal. Resting LV gradient 4 mmHg.Valsalva LV gradient 47 mmHg. Plan is to continue with diuretic therapy for an additional day 4. Peripheral arterial disease ? Patient is on antiplatelet held on admission 5. New onset diabetes mellitus type 2 ? Patient presented with hyperglycemia hemoglobin A1c ordered came back at 7.8. Subsequently placed on Accu-Cheks ACHS as well as 1800 ADA diet 6. Degenerative joint disease ? Pain meds as needed 7. Hepatosteatosis ? Consult was placed to GI on admission 8. Hypertension ? Blood pressure controlled, home medications continued with dose adjustment as needed 9. Mild intermittent asthma ? Currently not in exacerbation aerosol treatments as needed 10. GERD/history of Sarmiento's esophagus - Previous Robbie fundoplication; PPI as above 11. Hypothyroidism ? Patient is on levothyroxine home dose continued 12. Remote history of DVT ? Patient was treated appropriately 13. Class II obesity with BMI of 39.4 ? Complicating care weight loss advised 14. DVT prophylaxis ? Bilateral SCDs 15. Hypokalemia ? Corrected per protocol repeat labs ordered in a.m. to assess response to therapy 16. Atelectasis ? Did encourage the use of incentive spirometry 17. Physical deconditioning ? Requested for PT OT eval and social worker clinical to assist with discharge planning Time spent in the patient's overall evaluation,decision-making process, review of diagnostic data, adjustment of management, discussion with other providers, nursing nursing and ancillary staff involved in patient's care documentation, 52. Minutes Charges/Coding Visit Charges Inpatient E&M: 38614 Subs Hosp L3 12/31/24 0939 <Electronically signed by Keshav Elizondo MD> Cosigner Signature (if applicable): CC: ~ Signed [facility] Work Phone: 1(647) 479-861610-16-2025 Progress note Author Raul Friend [facility] Note Date/Time December 30, 2024 7 :52pm [facility] Medical Records Department [address] [place] [id number] Progress Note 12/30/24 1849 MR#: [id number] Acct: [id number] Name: KESHIA ROJAS Rep #:[id number] : 1950 74 From: Raul Casper DO PCP: Dr. Paulo Scott MD Status:AD M IN Location: [facility] [id number] Progress Note A 74-year-old woman presents for a follow-up visit after being diagnosed with erosive esophagitis and bleeding stigmata. She initially presented with progressive dysphagia, nausea, and vomiting. * Intervention and Treatment:?An upper endoscopy was performed, and bleeding stigmata were treated endoscopically. She was started on PPI (proton pump inhibitor) therapy and Carafate (sucralfate). * Current Status:?The patient reports significant improvement in her symptoms since the last visit. She is tolerating her diet well and denies any further episodes of dysphagia, nausea, or vomiting. She has been compliant with her medication regimen. * Associated Symptoms:?She denies any new or worsening symptoms, including heartburn, chest pain, or bleeding. Physical Exam Const alert, oriented x3, no apparent distress and healthy appearing General Appearance: cooperative GI normal to inspection, nondistended, normoactive bowel sounds, soft to palpation,non-tender and non-distended Percussion: normal to percussion Rectal Exam: deferred Assessment & Plan Assessment/Plan (1) GI bleed: PLAN: Assessment * Progressive Dysphagia/Nausea/Vomiting:?Resolved with PPI and sucralfate therapy. * Erosive Esophagitis with Bleeding:?Improved following endoscopic treatment and continued medical management. Hemoglobin is stable, suggesting resolution of active bleeding. * Potential Complications: * GERD :?Likely underlying cause of the erosive esophagitis. * Pill-induced Esophagitis:?Ruled out due to appropriate medication regimen. * Infectious Esophagitis:?Less likely given the clinical picture and treatment response. Plan * Continue Medication:?Continue current regimen of PPI therapy and Carafate as prescribed. * Dietary Modifications: * Encourage a soft-food diet, chewing food thoroughly, and eating slowly. * Recommend eating smaller, more frequent meals. * Advise avoiding trigger foods such as acidic, spicy, and fatty foods, as well as carbonated beverages, caffeine, and alcohol. * Discourage eating within 3 hours of bedtime. * Lifestyle Modifications: * Suggest elevating the head of the bed to reduce nocturnal reflux. * Advise maintaining a healthy weight. * Instruct on the importance of staying upright for at least 45?60 minutes after eating. * Follow-Up: * Follow up in 4?6 weeks to monitor symptoms and assess for relapse. * Check repeat hemoglobin levels to ensure continued stability. * Consider repeat endoscopy if symptoms recur or fail to resolve. Visit Charges Inpatient E&M: 13980 Subs Hosp L3 12/30/24 1956 <Electronically signed by Raul Casper DO> Raul Friend DO Cosigner Signature (if applicable): CC: ~ Signed [facility] Work Phone: [phone] Progress note Author Keshav Elizondo [facility] Note Date/Time December 30, 2024 1 2:20pm [facility] Medical Records Department [address] [place] [address] Progress Note - Hospitalist 12/30/24 0829 MR#: [id number] Acct: [id number] Name: KESHIA ROJAS Rep #:[id number] : 1950 74 From: Keshav Elizondo MD PCP: Dr. Paulo Scott MD Status:AD M IN Location: [place] [address] Reason for Visit Chief Complaint: Melena/abdominal pain Subjective Subjective Patient seen and reports wheezing. Clinical evaluation consistent with acute congestive heart failure Objective Data Objective Data Vital Signs: Vital Signs Temp Pulse Resp BP Pulse Ox O2 Del Method O2 Flow Rate 98.9 F 77 16 109/59 L 96 Nasal Cannula 2 12/30/24 03:50 12/30/24 03:50 12/30/24 03:50 12/30/24 03:50 12/30/24 03:50 12/30/24 03:50 12/30/24 03:50 Oxygen Flow Rate (L/min) 2 Oxygen Delivery Method Nasal Cannula Weight: 98.1 kg Body Mass Index (BMI) 37.1 Intake & Output: Intake and Output for Last 24 Hours 12/28/24 12/29/24 12/30/24 23:59 23:59 23:59 Intake Total 990.00 / 990.00 50 / 50 Output Total 4300 / 4800 500 / 500 Balance 988.00 / 988.00 -4250 / -4750 -500 / -500 Lab / Micro Data 12/30/24 10:42 12/30/24 05:29 Labs: Laboratory Results - last 24 hr 12/29/24 11:38: POC Glucose 195 H 12/29/24 13:51: Hgb 7.7 L, Hct 24.4 L 12/29/24 16:43: POC Glucose 206 H 12/30/24 00:00: POC Glucose 177 H 12/30/24 05:29: WBC 7.5, RBC 2.35 L, Hgb 7.3 L, Hct 22.7 L, MCV 96.6, MCH 31.1, MCHC 32.2, RDW Std Deviation 54.6 H, RDW Coeff of Ronnie 15.9 H, Plt Count 230, MPV9.5, Immature Gran % (Auto) 0.400, Neut % (Auto) 53.2, Lymph % (Auto) 27.7, [place]% (Auto) 9.6, Eos % (Auto) 8.6 H, Baso % (Auto) 0.5, Absolute Neuts (auto) 4.0, Absolute Lymphs (auto) 2.08, Nucleated RBC % 0, Sodium 137, Potassium 3.8, Chloride 104, Carbon Dioxide 26.0, Anion Gap 7, BUN 10, Creatinine 0.70, Estim Creat Clear Calc 70.18, Est GFR (MDRD) Non-Af 91, BUN/Creatinine Ratio 14.9, Glucose 164 H, Calcium 8.2 Micro: Microbiology 12/27/24 11:23 Urine, Clean Catch Urine Culture - Final Aerococcus urinae Mixed Gram Pos & Gram Neg Org 12/27/24 11:23 Stool Stool Occult Blood (PIA) - Final Occult Blood Positive Physical Exam Narrative GENERAL: cooperative HEENT: Atraumatic; normocephalic EYES; Anicteric, Normal Conjunctiva NECK; supple, normal thyroid, RESPIRATORY: Diminished to auscultation ? With bibasilar wheezes and crackles CARDIOVASCULAR: Regular S1 S2, GI: soft, normoactive bowel sounds, : No Renal angle tenderness; EXTREMITIES: Bipedal edema MUSCULOSKELETAL: no muscle wasting NEURO: Awake; no lateralizing signs. SKIN: No Rash PSYCH; Flat affect Assessment & Plan Assessment/Plan (1) GI bleed: PLAN: Plan Patient is a 74-year-old lady who presented to the emergency department with abdominal pain with associated nausea and vomiting as well as melenic stools. Patient was found to be anemic with hemoglobin of 7.0 admitted to monitored bed for further management 1. Anemia ? Secondary to acute blood loss anemia suspected to be secondary to upper GI bleed exacerbated by the use of aspirin. Patient hemoglobin on admission was 7.0 patient was transfused with 1 unit PRBC started on Protonix drip after bolusadmitted to monitored bed H&H ordered consult placed to GI ? 12/29/2024; patient underwent EGD by Dr. Casper on 12/28/2024 findings and recommendations as below Impressions : - LA Grade C erosive esophagitis with bleeding. Biopsied. Treated with a heater probe. - Zakia-Quezada tear. Treated with a heater probe. - Hiatal hernia. - A fundoplication was found. The wrap appears loose. - No gross lesions in the entire stomach. - No gross lesions in the entire examined duodenum. Recommendations : -- Use Protonix (pantoprazole) 40 mg PO BID for 3 months. Patient hemoglobin down to 7.3 we will continue with monitoring. Repeated H&H at 1400 ? 12/31/2023; patient hemoglobin up to 7.9 2. Acute cystitis ? Patient urinalysis was abnormal and consistent with UTI started on ceftriaxone ? 12/29/2024; patient urine cultures so far positive for an alphahemolytic organism with greater than 100 K CFU and mixed gram-positive and gram-negative organisms with 25K-50K CFU final identification and sensitivities pending ? 12/30/2024; patient friend urine culture sensitivities reviewed positive for Aerococcus 3. Acute congestive heart failure?suspected heart failure with preserved ejection fraction ? Ordered 2D echo, proBNP. Patient started on diuretics placed on low-sodium diet in addition to fluid restriction and serial monitoring of electrolyte. Also ordered daily weights as well as strict input and output and discontinued patient IV fluids 4. Peripheral arterial disease ? Patient is on antiplatelet held on admission 5. New onset diabetes mellitus type 2 ? Patient presented with hyperglycemia hemoglobin A1c ordered came back at 7.8. Subsequently placed on Accu-Cheks ACHS as well as 1800 ADA diet 6. Degenerative joint disease ? Pain meds as needed 7. Hepatosteatosis ? Consult was placed to GI on admission 8. Hypertension ? Blood pressure controlled, home medications continued with dose adjustment as needed 9. Mild intermittent asthma ? Currently not in exacerbation aerosol treatments as needed 10. GERD/history of Sarmiento's esophagus - Previous Robbie fundoplication; PPI as above 11. Hypothyroidism ? Patient is on levothyroxine home dose continued 12 remote history of DVT ? Patient was treated appropriately 13. Class II obesity with BMI of 39.4 ? Complicating care weight loss advised 14. DVT prophylaxis ? Bilateral SCDs Time spent in the patient's overall evaluation,decision-making process, review of diagnostic data, adjustment of management, discussion with other providers, nursing nursing and ancillary staff involved in patient's care documentation, 50. Minutes Charges/Coding Visit Charges Inpatient E&M: 47136 Subs Hosp L3 12/30/24 1120 <Electronically signed by Keshav Elizondo MD> Cosigner Signature (if applicable): CC: ~ Signed [facility] Work Phone: [phone]) 489-962610-15-2025 Progress note Author Keshav Elizondo [facility] Note Date/Time December 29, 2024 1 0:20am [facility] Medical Records Department [address] [place] [address] Progress Note - Hospitalist 12/29/24 0853 MR#: [id number] Acct: [id number] Name: KESHIA ROJAS Rep #:[id number] : 1950 74 From: Keshav Elizondo MD PCP: Dr. Paulo Scott MD Status:AD M IN Location: [place] [address] Reason for Visit Chief Complaint: Melena/abdominal pain Subjective Subjective Patient underwent EGD the day prior findings and recommendation as documented below Objective Data Objective Data Vital Signs: Vital Signs Temp Pulse Resp BP Pulse Ox O2 Del Method 98.6 F 81 18 116/48 L 93 Room Air 12/29/24 03:45 12/29/24 03:45 12/29/24 03:45 12/29/24 03:45 12/29/24 03:45 12/29/24 03:45 Oxygen Delivery Method Room Air Weight: 98 kg Body Mass Index (BMI) 37.0 Intake & Output: Intake and Output for Last 24 Hours 12/27/24 12/28/24 12/29/24 23:59 23:59 23:59 Intake Total 990.00 / 990.00 Output Total 2800 / 2800 Balance 988.00 / 988.00 -2800 / -2800 Lab / Micro Data 12/29/24 05:26 12/29/24 05:26 Labs: Laboratory Results - last 24 hr 12/28/24 10:08: Hgb 8.3 L, Hct 25.4 L 12/28/24 11:09: POC Glucose 189 H 12/28/24 16:10: POC Glucose 166 H 12/28/24 23:52: POC Glucose 252 H 12/29/24 05:26: WBC 8.9, RBC 2.38 L, Hgb 7.3 L, Hct 23.0 L, MCV 96.6, MCH 30.7, MCHC 31.7 L D, RDW Std Deviation 55.6 H, RDW Coeff of Ronnie 16.6 H, Plt Count 237,MPV 10.1, Immature Gran % (Auto) 0.400, Neut % (Auto) 57.7, Lymph % (Auto) 24.2,[place] % (Auto) 11.1 H, Eos % (Auto) 6.0 H, Baso % (Auto) 0.6, Absolute Neuts (auto) 5.1, Absolute Lymphs (auto) 2.15, Nucleated RBC % 0, Sodium 140, Potassium 3.6, Chloride 107, Carbon Dioxide 25.3, Anion Gap 7, BUN 9, Creatinine0.66 L, Estim Creat Clear Calc 70.14, Est GFR (MDRD) Non-Af 92, BUN/Creatinine Ratio 13.9, Glucose 201 H, Calcium 8.0, Phosphorus 3.1, Magnesium 2.1 12/29/24 05:39: POC Glucose 204 H Micro: Microbiology 12/27/24 11:23 Stool Stool Occult Blood (PIA) - Final Occult Blood Positive Radiography Diagnostic Testing: Radiology Impression Chest X-Ray 12/28/24 10:44 IMPRESSION: 1. Hiatus hernia. 2. Mild cardiac enlargement. Subsegmental atelectasis left lower lobe. Reading Location: [facility] Physical Exam Narrative GENERAL: cooperative HEENT: Atraumatic; normocephalic EYES; Anicteric, Normal Conjunctiva NECK; supple, normal thyroid, RESPIRATORY: Diminished to auscultation CARDIOVASCULAR: Regular S1 S2, GI: soft, normoactive bowel sounds, : No Renal angle tenderness; EXTREMITIES: No edema, no clubbing, MUSCULOSKELETAL: no muscle wasting NEURO: Awake; no lateralizing signs. SKIN: No Rash PSYCH; Flat affect Assessment & Plan Assessment/Plan (1) GI bleed: PLAN: Plan Patient is a 74-year-old lady who presented to the emergency department with abdominal pain with associated nausea and vomiting as well as melenic stools. Patient was found to be anemic with hemoglobin of 7.0 admitted to monitored bed for further management 1. Anemia ? Secondary to acute blood loss anemia suspected to be secondary to upper GI bleed exacerbated by the use of aspirin. Patient hemoglobin on admission was 7.0 patient was transfused with 1 unit PRBC started on Protonix drip after bolusadmitted to monitored bed H&H ordered consult placed to GI ? 12/29/2024; patient underwent EGD by Dr. Casper on 12/28/2024 findings and recommendations as below Impressions : - LA Grade C erosive esophagitis with bleeding. Biopsied. Treated with a heater probe. - Zakia-Quezada tear. Treated with a heater probe. - Hiatal hernia. - A fundoplication was found. The wrap appears loose. - No gross lesions in the entire stomach. - No gross lesions in the entire examined duodenum. Recommendations : -- Use Protonix (pantoprazole) 40 mg PO BID for 3 months. Patient hemoglobin down to 7.3 we will continue with monitoring. Repeated H&H at 1400 2. Acute cystitis ? Patient urinalysis was abnormal and consistent with UTI started on ceftriaxone ? 12/29/2024; patient urine cultures so far positive for an alphahemolytic organism with greater than 100 K CFU and mixed gram-positive and gram-negative organisms with 25K-50K CFU final identification and sensitivities pending 3. Hypothyroidism ? Patient is on levothyroxine home dose continued 4. Peripheral arterial disease ? Patient is on antiplatelet held on admission 5. New onset diabetes mellitus type 2 ? Patient presented with hyperglycemia hemoglobin A1c ordered came back at 7.8. Subsequently placed on Accu-Cheks ACHS as well as 1800 ADA diet 6. Degenerative joint disease ? Pain meds as needed 7. Hepatosteatosis ? Consult was placed to GI on admission 8. Hypertension ? Blood pressure controlled, home medications continued with dose adjustment as needed 9. Mild intermittent asthma ? Currently not in exacerbation aerosol treatments as needed 10. GERD/history of Sarmiento's esophagus - Previous Robbie fundoplication; PPI as above 11 remote history of DVT ? Patient was treated appropriately 12. Class II obesity with BMI of 39.4 ? Complicating care weight loss advised 13. DVT prophylaxis ? Bilateral SCDs Time spent in the patient's overall evaluation,decision-making process, review of diagnostic data, adjustment of management, discussion with other providers, nursing nursing and ancillary staff involved in patient's care documentation, 52. Minutes Charges/Coding Visit Charges Inpatient E&M: 47240 Subs Hosp L3 12/29/24 0920 <Electronically signed by Keshav Elizondo MD> Cosigner Signature (if applicable): CC: ~ Signed [facility] Work Phone: [phone] 296-753210-15-2025 Consult note Author Raul Casper [facility] Note Date/Time December 29, 2024 8 :44am [facility] Medical Records Department [address] [place] [address] Consultation - GI 12/27/24 1752 MR#: [id number] Acct: [id number] Name: KESHIA ROJAS Rep #:[id number] : 1950 74 From: Raul Casper DO PCP: Dr. Paulo Scott MD Status:AD M IN Location: [place] [address] HPI Consult Data Date of Consult: 12/27/24 HPI Narrative Reason for Consultation: GI bleed HPI Narrative: KESHIA ROJAS, is a 74 F who presented today for the evaluation of lower abdominal pain. Patient states since Friday she has been having lower abdominal pain, nausea, vomiting, dark stools, and lightheadedness. In the ED she was noted to have a hemoglobin dropped down from 14.5 down to 7. She does take aspirin on a daily basis. She was recently seen in the clinic after ED visit with nausea. Patient was found to have a UTI and was started on cephalexin. This has caused her to become constipated. She did not like taking the cephalexin and feels her bowelshave normalized. 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 [facility] Medical History Loss of hearing Wears glasses Wears partial dentures Post-menopausal Anxiety Thyroid disease Ambulates with cane Urinary incontinence Difficulty swallowing Gastric reflux Non-smoker History of echocardiogram History of stress test Seasonal allergies History of edema Cardiology follow-up encounter History of cataract Ganglion cyst Atherosclerotic heart disease of [place] coronary artery without angina pectoris Cholelithiasis with [...] 100 mg capsule 300 mg PO QHS PAIN 01/11/14 12/26/24 History diazepam 5 mg tablet 5 mg PO QHS PRN anxiety 12/1712/26/24 History aspirin 81 mg tablet,delayed 81 mg PO DAILY@0800 HEART 02/09/19 12/26/24 History release multivitamin 1 tab PO DAILY SUPPLEMENT 12/26/24 History cholecalciferol (vitamin D3) 125 125 mcg PO DAILY SUPP LEMENT 10/11/19 05/05/22 History mcg (5,000 unit) capsule inhalational spacing device #1 ea 10/11/19 Unknown Rx (BreatheRite MDI Spacer) levothyroxine 88 mcg tablet 88 mcg PO DAILY THYROID 12/27/24 History cranberry fruit concentrate 250 mg 250 mg PO DAILY [facility] 01/31/23 12/27/24 History chewable tablet (Azo Cranberry) spironolactone 25 mg tablet 25 mg PO 1700 PRN HTN 07/1712/26/24 History amlodipine 5 mg tablet 5 mg PO DAILY HTN 10/15/24 1 History lactulose 10 gram/15 mL oral 30 ml PO QHS 12/27/2403/10 History solution Allergy/AdvReac Type Severity Reaction Status Date / Time latex Allergy Unknown PT UNSURE Verified 12/27/24 09:55 OF REACTION adhesive Allergy Unknown Verified 12/27/24 09:55 benzocaine (From Cetacaine) Allergy Unknown Verified 12/27/24 09:55 butamben (From Cetacaine) Allergy Vomiting Verified 12/27/24 09:55 cortisone (Cortisone) Allergy Unknown Verified 12/27/24 09:55 dipyridamole (From Aggrenox) Allergy Unknown Verified 12/27/24 09:55 lansoprazole (From Prevacid) Allergy Unknown Verified 12/27/24 09:55 meclizine Allergy Unknown Verified 12/27/24 09:55 methylprednisolone acetate Allergy Angioedema Verified 12/27/24 09:55 (From Depo-Medrol) metoprolol Allergy Unknown Verified 12/27/24 09:55 omeprazole (From Prilosec) Allergy Unknown Verified 12/27/24 09:55 omeprazole magnesium (From Allergy Unknown Verified 12/27/24 09:55 Prilosec) oxybutynin chloride (From Allergy Unknown Verified 12/27/24 09:55 Ditropan) povidone-iodine (From Allergy Unknown Verified 12/27/24 09:55 Betadine) sulfamethoxazole (From Allergy Unknown Verified 12/27/24 09:55 Bactrim) tegaserod (From Zelnorm) Allergy Hives Verified 12/27/24 09:55 tegaserod hydrogen maleate Allergy Unknown Verified 12/27/24 09:55 (From Zelnorm) tetracaine (From Cetacaine) Allergy Unknown Verified 12/27/24 09:55 tolterodine tartrate (From Allergy Unknown Verified 12/27/24 09:55 Detrol) trimethoprim (From Bactrim) Allergy Unknown Verified 12/27/24 09:55 lisinopril AdvReac Intermediate Angioedema Verified 12/27/24 09:55 adhesive tape AdvReac Rash Verified 12/27/24 09:55 codeine AdvReac Unknown Verified 12/27/24 09:55 mirabegron (From Myrbetriq) AdvReac Other Verified 12/27/24 09:55 tizanidine AdvReac Other Verified 12/27/24 09:55 vaccine adjuvant system, AdvReac Rash Verified 12/27/24 09:55 AS01B liposomal (From Shingrix (PF)) varicella-zoster virus AdvReac Rash Verified 12/27/24 09:55 glycoprotein E, recombinant (From Shingrix (PF)) Family [...] hernia repair History of tonsillectomy Social History housing: house Smoking Status: Never smoker alcohol intake: never substance use type: does not use caffeine: Yes Type: coffee Number of servings: 2 what type of physical activity do you participate in: walking frequency: 3-4 times per week ROS Constitutional Constitutional: Denies fatigue, fever(s), poor appetite, weight gain or weight loss Gastrointestinal Gastrointestinal: Denies belching, bloating, change in bowel habits, change in stool character, chewing difficulty, coffee ground emesis, constipation, cramping, diarrhea, dyspepsia, dysphagia, early satiety, excessive flatus, fecalincontinence, heartburn, hematemesis, hematochezia, hemorrhoids, loose stools, melena, nausea, odynophagia, rectal bleeding, tenesmus, vomiting or weight changes Physical Exam Const alert, oriented x3, no apparent distress and healthy appearing General Appearance: cooperative GI normal to inspection, nondistended, normoactive bowel sounds, soft to palpation,non-tender and non-distended Percussion: normal to percussion Rectal Exam: deferred Lab / Micro Data 12/27/24 16:40 12/27/24 10:10 Labs: Laboratory Results - last 24 hr 12/27/24 10:10: WBC 12.0 H, RBC 2.20 L, Hgb 7.0 L, Hct 21.2 L, MCV 96.4, MCH 31.8, MCHC 33.0, RDW Std Deviation 47.8 H, RDW Coeff of Ronnie 14.1, Plt Count 251,MPV 10.2, Immature Gran % (Auto) 0.600, Neut % (Auto) 67.3, Lymph % (Auto) 21.4,[place] % (Auto) 6.4, Eos % (Auto) 3.8, Baso % (Auto) 0.5, Absolute Neuts (auto) 8.1 H, Absolute Lymphs (auto) 2.57, Nucleated RBC % 0.2, Sodium 135, Potassium 3.8, Chloride 103, Carbon Dioxide 23.0, Anion Gap 10, BUN 23 H, Creatinine 0.68 L, Estim Creat Clear Calc 71.20, Est GFR (MDRD) Non-Af 91, BUN/Creatinine Ratio 34.2 H, Glucose 378 H, Hemoglobin A1c 7.8 H, Calcium 8.5, Total Bilirubin 0.23, AST 18, ALT 20, Alkaline Phosphatase 52, Total Protein 5.6 L, Albumin 3.4, Globulin 2.2, Albumin/Globulin Ratio 1.5, Lipase 25, Blood Type A POSITIVE, Antibody Screen NEGATIVE, Crossmatch See Detail 12/27/24 11:03: PT 13.6, INR 1.0, APTT 22.6 L, Lactic Acid 2.6 H* 12/27/24 11:23: Urine Color Yellow, Urine Clarity Sl. Cloudy, Urine pH 6.0, Ur Specific [place] 1.020, Urine Protein 15 H, Urine Glucose (UA) 1000 H, Urine Ketones Negative, Urine Occult Blood Negative, Urine Nitrite Negative, Urine Bilirubin Negative, Urine Urobilinogen Normal, Ur Leukocyte Esterase 100 H, Urine RBC 0-5 SEEN, Urine WBC 5-10 SEEN, Ur Squamous Epith Cells 5-10 SEEN, Urine Bacteria 1+, Urine Mucus RARE 12/27/24 16:40: Hgb 8.2 L, Hct 25.4 L 12/27/24 17:08: POC Glucose 190 H Micro: Microbiology 12/27/24 11:23 Stool Stool Occult Blood (PIA) - Final Occult Blood Positive Imaging Radiology Impression Abdomen/Pelvis CT 12/27/24 11:12 IMPRESSION: Diffuse fatty infiltration of the liver. Findings suggestive of pancreatitis in the region of the head of the pancreas. Small right renal cysts. Status post subtotal gastrectomy. Reading Location: [facility] Assessment & Plan Assessment/Plan (1) GI bleed: (2) Acute anemia: PLAN: ASSESSMENT * GI bleed:?This is supported by the patient's report of dark stools (melena), a significant drop in hemoglobin, and symptoms of lightheadedness. The use of daily aspirin is a major risk factor for GI bleeding. * Anemia (severe):?The marked drop in hemoglobin from 14.5 to 7.0 indicates severe anemia, likely secondary to GI blood loss. This accounts for her lightheadedness. * Sarmiento's esophagus:?The patient's history of Sarmiento's esophagus and ongoing heartburn, without being on a PPI, is a relevant risk factor for esophageal and gastric issues, which could be related to her GI bleed. * Aspirin-induced gastrointestinal ulceration/bleeding:?Her daily aspirin use is a likely cause of the acute GI bleeding, exacerbated by the lack of a protective PPI for her Sarmiento's esophagus. * * Constipation:?While the patient feels her bowels have normalized, the recent constipation following cephalexin may have contributed to GI discomfort. However, the current presentation of dark stools and significant blood loss is more concerning. Differential Diagnoses: * Peptic Ulcer Disease:?Ulcers, possibly from aspirin use, can cause GI bleeding. * Acute Diverticular Bleed:?Diverticula in the colon can cause significant bleeding. * Angiodysplasia:?Abnormal blood vessels in the GI tract can lead to bleeding. * Malignancy:?A GI malignancy, such as colon cancer, should be ruled out given the patient's age and symptoms. PLAN * Hospital Admission:?The patient's significant drop in hemoglobin necessitates immediate hospitalization for stabilization and further workup. * Diagnostic Procedures:?Upper endoscopy and colonoscopy are indicated to identify and treat the source of the GI bleed. * Medication Management:?Hold aspirin immediately. Start a proton pump inhibitor to help with the bleeding and manage her Sarmiento's esophagus. * * Transfusion:?Likely require a blood transfusion to address severe anemia. Monitor hemoglobin levels closely. Charges/Coding Visit Charges Inpatient E&M: 71300 Init Hosp L3 12/29/24 0744 <Electronically signed by Raul Friend DO> Cosigner Signature (if applicable): CC: Dr. Paulo Scott MD~ Signed [facility] Work Phone: [phone] Consult note Author Ang Josue [facility] Note Date/Time January 03, 2025 6 :19pm [facility] Medical Records Department [address] [place] [address] Anesthesia Postop Eval II 12/28/242220 MR#: [id number] Acct: [id number] Name: KESHIA ROJAS Rep #:[id number] : 1950 74 From: Ang Josue MD PCP: Dr. Paulo Scott MD Status:AD M IN Y Race: C Location: [place] [address] 3-1 Anesthesia Postop Eval I Sum Postop Eval Completion status Anesthesia document: Postop Eval 1 completed: Yes Anesthesia Postop Eval I Summary Anesthesia Postop Eval I Summary: Anesthesia Postop Eval I: Assessment Summary Airway patent Yes 12/28/24 19:20 Spontaneous unlabored Yes 12/28/24 19:20 respirations Mental status Awake,Calm 12/28/24 19:20 nausea No 12/28/24 19:20 Vomiting No 12/28/24 19:20 Anesthesia Postop Eval I: Fluid Summary Crystalloid volume administer 200 12/28/24 19:20 (ml) Colloids volume administered ( ml) Blood Product volume administered (ml) Total IV fluid infused 200 12/28/24 19:20 Anesthesia Postop Eval I: Summary Notes Anesthesia Complication No 12/28/24 19:20 Anesthesia Complication Comment: Post-operative progress note Anesthesia: Postop Eval II Evaluation Mental status: Awake and Calm Pain Level: 0 nausea: No Vomiting: No Complications Anesthesia Complication: No 12/28/242220 <Electronically signed by Ang gandara MD> Date _ Ang Josue MD Cosigner Signature: Date CC: ~ Signed [facility] Work Phone: [phone]) [phone] Consult note Author Ang [facility] Note Date/Time December 28, 2024 8 :20pm [facility] Medical Records Department [address] [place] [address] Anesthesia Postop Eval I 12/28/241917 MR#: [id number] Acct: [id number] Name: KESHIA ROJAS Rep #:[id number] : 1950 74 From: Ang Josue MD PCP: Dr. Paulo Scott MD Status:AD M IN Y Race: C Location: [place] [address] Anesthesia: Postop Eval I Current Vital Signs Temperature: 98.7 F Pulse Rate: 87 Blood Pressure: 111/61 Respiratory Rate: 16 Pulse Ox: 95 Oxygen Delivery Method: Room Air Assessment Airway patent: Yes Spontaneous unlabored respirations: Yes Mental status: Awake and Calm nausea: No Vomiting: No Anesthesia Complication: No Fluid Hydration Crystalloid volume administer (ml): 200 Total IV fluid infused: 200 Progress Note Anesthesia document: Postop Eval 1 completed: Yes 12/28/241919 <Electronically signed by Ang gandara MD> Date _ Ang Josue MD Cosigner Signature: Date CC: ~ Signed [facility] Work Phone: [phone] 133-375410-14-2025 Consult note Author Ang [facility] Note Date/Time December 28, 2024 6 :55pm [facility] Medical Records Department [address] [place] [address] Pre-Anesthesia Evaluation 12/28/241741 MR#: [id number] Acct: [id number] Name: KESHIA ROJAS Rep #:[id number] : 1950 74 From: Ang Josue MD PCP: Dr. Paulo Scott MD Status:AD M IN Y Race: C Location: [place] [address] 3-1 ASA Classification* ASA Classification ASA Classification: 3 Assessment & Plan Anesthesia* Anesthesia Assessment Anesthesia Assessment: Discussed sedation and/or anesthesia options, risks, benefits, and alternatives with patient/parents/legal guardian/POA. Questions invited. The patient/parents/legal guardian/POA seems to understand and agrees to proceedwith anesthesia plan. Reviewed the physical assessment, medical history, allergy history and patient home medications list prior to surgery/procedure/anesthetic and documented any changes. Performed airway and anesthesia risk assessments. Anesthesia Type Anesthesia Type: MAC History Source History Obtained from:: Patient and Chart Anesthesia Focused Assessment* Temperature: 98.9 F Pulse Rate: 85 Blood Pressure: 135/60 Respiratory Rate: 20 Pulse Ox: 94 Oxygen Delivery Method: Room Air Airway Assessment Mouth opens: >3 cm Mallampati Score: IV Teeth Condition: Missing (Multiple missing incisors on the top. Nothing loose.) Neck Range of motion (ROM): Limited ROM (Slight Decrease) Labs Anesthesia Preop lab: CBC WBC, (4.4-11.0) 9.5 K/mm3 Today, 04:10 RBC, (4.2-5.4) 2.28 M/mm3 L Today, 04:10 Hgb, (12.0-15.0) 8.3 g/dL L Today, 10:08 Hct, (37-47) 25.4 % L Today, 10:08 Plt Count, (150-450) 217 K/mm3 Today, 04:10 CHEMISTRY Potassium, (3.3-5.1) 4.1 mmol/L Today, 04:10 Sodium, (133-145) 139 mmol/L Today, 04:10 Magnesium, (1.5-2.2) 2.2 mg/dL Today, 04:10 Phosphorus, (2.7-4.5) 2.9 mg/dL Today, 04:10 BUN, (4-19) 12 mg/dL Today, 04:10 Creatinine, (0.70-1.20) 0.58 mg/dL L Today, 04:10 Glucose, (70-99) 185 mg/dL H Today, 04:10 POC Glucose, (74-106) 166 mg/dL H Today, 16:10 TSH, (0.300-4.200) 6.330 uIU/mL H Today, 04:10 COAG PT, (11.7-14.9) 14.5 SECONDS Today, 04:10 Pre-Assessment Diagnosis/Proposed Procedure Planned Operative Procedure(s): EGD. 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 When Was Last Pacemaker Check QUESTION #4 FULL TEXT: You/Your Family Experience fever (hyperthermia) with Anesthesia Last Oral Intake Last Oral intake: Last Oral Intake NPO since 00:00 12/28/24 09:22 Meds taken in AM with sips of Yes 12/28/24 09:22 water? 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 Female HX of Motion Sickness HX of N/V After Surgery Non-Smoker Duration of Surgery greater than 60 minutes Number of Risk Factors PONV Score Height & Weight Height & Weight: Anesthesia: Height & Weight Height 5 ft 4 in 12/28/24 09:22 Weight: 104.1 kg 12/28/24 09:22 Body Mass Index (BMI) 39.4 12/28/24 09:22 Respiratory Assessment Respiratory Assessment - stage setting painter apprentice: Respiratory Tract Infection Hx - stage setting painter apprentice Hx Respiratory Tract Infection No 12/28/24 09:24 STOP Sleep Apnea STOP Sleep Apnea - stage setting painter apprentice: STOP Sleep Apnea - stage setting painter apprentice Hx Hypertension Yes 12/27/24 15:34 Hx Sleep Apnea No 12/27/24 15:34 CPAP BIPAP Do you snore loudly (louder Yes 12/27/24 15:34 than talking or can be heard Do you often feel tired/ Yes 12/27/24 15:34 fatigued/ sleepy during daytime? Has anyone observed you stop No 12/27/24 15:34 breathing during sleep? STOP Results Positive 12/27/24 15:34 QUESTION #5 FULL TEXT : Do you snore loudly (louder than talking or can be heard through closed doors)? 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 Specify any problems Hx of Preganancy in last 3 N/A 12/27/24 15:34 Months Nurse Filling Out Transfusion AHAGGERTY 12/27/24 15:34 & Questions: Date: 12/27/24 12/27/24 15:34 Time: 15:37 12/27/24 15:34 Patient unable to answer at this time (ie. confused, unrespo /Reproduction History /Reproductive History - stage setting painter apprentice: /Reproductive Hx- stage setting painter apprentice Hx Now No 12/28/24 09:24 Gestational Age (in weeks): EDC: Hx Hx Para Hx Section SAB No 12/28/24 04:53 Active Medications Active Medications: Current Medications Generic Name Dose Route Start Last Admin Trade Name Freq PRN Reason Stop Dose Admin Amlodipine Besylate 5 mg 12/28/24 10:00 12/28/24 08:35 Amlodipine 5 Mg Tablet PO 5 mg DAILY SELAM Administration Protocol Diazepam 5 mg 12/27/24 15:21 Diazepam 5 Mg Tablet PO QHS PRN ANXIETY Gabapentin 300 mg 12/27/24 22:00 12/27/24 20:46 Gabapentin 300 Mg Capsule PO 300 mg QHS SELAM Administration Glucagon 1 mg 12/28/24 10:15 Glucagon 1 Mg/Ml Syringe IM X1 PRN Hypoglycemia Protocol Pantoprazole Sodium 80 mg/ 100 mls @ 10 mls/hr 12/27/24 14:30 12/28/24 17:20 Sodium Chloride CONT INF 0 mls/hr Q10H SELAM Infusion Ceftriaxone Sodium 1 gm in 50 mls @ 100 mls/hr 12/27/24 15:21 12/28/24 09:45 Rocephin IV Infused Q24 SELAM Infusion Dextrose 250 mls @ 0 mls/hr 12/28/24 10:15 Dextrose 10%-Water IV .Q0M PRN HYPOGLYCEMIA Protocol As Directed Sodium Chloride 250 mls @ 15 mls/hr 12/28/24 13:23 IV .[id number] PRN Saline Flush Sodium Chloride 250 mls @ 15 mls/hr 12/28/24 13:23 IV .[id number] PRN Additional IVPB Infusion Insulin Glargine 10 unit 12/29/24 08:00 Insulin Glargine-Yfgn 100 Unit/Ml Pen SC DAILY [facility] Insulin Human Lispro 0 unit 12/27/24 18:00 12/28/24 16:14 Insulin Lispro 100 Unit/Ml Insuln.Pen SC Not Given Q6 [facility] Protocol Levothyroxine Sodium 88 mcg 12/28/24 06:00 12/28/24 04:57 Levothyroxine 88 Mcg Tablet PO Not Given DAILY@0600 [facility] Morphine Sulfate 2 - 4 mg 12/27/24 15:21 12/27/24 20:46 Morphine 2 Mg/Ml Syringe IV 2 mg Q3H PRN PRN Administration Pain Score 6-10 Multivitamins 1 tablet 12/28/24 08:00 12/28/24 09:08 Multivitamins,Therapeutic [facility]t [facility] Ondansetron HCl 4 mg 12/27/24 15:21 Ondansetron 4 Mg/2 Ml Vial IV Q8H PRN PRN NAUSEA/VOMITING Sodium Chloride 10 - 40 ml 12/27/24 15:47 12/27/24 20:47 0.9% Saline Lock 10 Ml Syringe IV 10 ml UD PRN Administration SALINE FLUSH PFSH Medical History Loss of hearing Wears glasses Wears partial dentures Post-menopausal Anxiety Thyroid disease Ambulates with cane Urinary incontinence Difficulty swallowing Gastric reflux Non-smoker History of echocardiogram History of stress test Seasonal allergies History of edema Cardiology follow-up encounter History of cataract Ganglion cyst Atherosclerotic heart disease of [place] coronary artery without angina pectoris Cholelithiasis with [...] 100 mg capsule 300 mg PO QHS PAIN 01/11/14 12/26/24 History diazepam 5 mg tablet 5 mg PO QHS PRN anxiety 12/1712/26/24 History aspirin 81 mg tablet,delayed 81 mg PO DAILY@0800 HEART 02/09/19 12/26/24 History release multivitamin 1 tab PO DAILY SUPPLEMENT 12/26/24 History cholecalciferol (vitamin D3) 125 125 mcg PO DAILY SUPP LEMENT 10/11/19 05/05/22 History mcg (5,000 unit) capsule inhalational spacing device #1 ea 10/11/19 Unknown Rx (BreatheRite MDI Spacer) levothyroxine 88 mcg tablet 88 mcg PO DAILY THYROID 12/27/24 History cranberry fruit concentrate 250 mg 250 mg PO DAILY I Reocar 01/31/23 12/27/24 History chewable tablet (Azo Cranberry) spironolactone 25 mg tablet 25 mg PO 1700 PRN HTN 07/1712/26/24 History amlodipine 5 mg tablet 5 mg PO DAILY HTN 10/15/24 1 History lactulose 10 gram/15 mL oral 30 ml PO QHS 12/27/2403/10 History solution Allergy/AdvReac Type Severity Reaction Status Date / Time latex Allergy Unknown PT UNSURE Verified 12/27/24 09:55 OF REACTION adhesive Allergy Unknown Verified 12/27/24 09:55 benzocaine (From Cetacaine) Allergy Unknown Verified 12/27/24 09:55 butamben (From Cetacaine) Allergy Vomiting Verified 12/27/24 09:55 cortisone (Cortisone) Allergy Unknown Verified 12/27/24 09:55 dipyridamole (From Aggrenox) Allergy Unknown Verified 12/27/24 09:55 lansoprazole (From Prevacid) Allergy Unknown Verified 12/27/24 09:55 meclizine Allergy Unknown Verified 12/27/24 09:55 methylprednisolone acetate Allergy Angioedema Verified 12/27/24 09:55 (From Depo-Medrol) metoprolol Allergy Unknown Verified 12/27/24 09:55 omeprazole (From Prilosec) Allergy Unknown Verified 12/27/24 09:55 omeprazole magnesium (From Allergy Unknown Verified 12/27/24 09:55 Prilosec) oxybutynin chloride (From Allergy Unknown Verified 12/27/24 09:55 Ditropan) povidone-iodine (From Allergy Unknown Verified 12/27/24 09:55 Betadine) sulfamethoxazole (From Allergy Unknown Verified 12/27/24 09:55 Bactrim) tegaserod (From Zelnorm) Allergy Hives Verified 12/27/24 09:55 tegaserod hydrogen maleate Allergy Unknown Verified 12/27/24 09:55 (From Zelnorm) tetracaine (From Cetacaine) Allergy Unknown Verified 12/27/24 09:55 tolterodine tartrate (From Allergy Unknown Verified 12/27/24 09:55 Detrol) trimethoprim (From Bactrim) Allergy Unknown Verified 12/27/24 09:55 lisinopril AdvReac Intermediate Angioedema Verified 12/27/24 09:55 adhesive tape AdvReac Rash Verified 12/27/24 09:55 codeine AdvReac Unknown Verified 12/27/24 09:55 mirabegron (From Myrbetriq) AdvReac Other Verified 12/27/24 09:55 tizanidine AdvReac Other Verified 12/27/24 09:55 vaccine adjuvant system, AdvReac Rash Verified 12/27/24 09:55 AS01B liposomal (From Shingrix (PF)) varicella-zoster virus AdvReac Rash Verified 12/27/24 09:55 glycoprotein E, recombinant (From Shingrix (PF)) Family [...] hernia repair History of tonsillectomy Social History housing: house Smoking Status: Never smoker alcohol intake: never substance use type: does not use caffeine: Yes Type: coffee Number of servings: 2 what type of physical activity do you participate in: walking frequency: 3-4 times per week Review of Systems (Anesthesia) ROS Narrative System reviewed and no additional complaints, except as documented. 12/28/241754 <Electronically signed by Ang gandara MD> Date _ Ang Josue MD Cosigner Signature: Date CC: ~ Signed [facility] Work Phone: [phone] Progress note Author Keshav Elizondo [facility] Note Date/Time December 28, 2024 1 1:15am [facility] Medical Records Department [address] [place] [address] Progress Note - Hospitalist 12/28/24 0819 MR#: [id number] Acct: [id number] Name: KESHIA ROJAS Rep #:[id number] : 1950 74 From: Keshav Elizondo MD PCP: Dr. Paulo Scott MD Status:AD M IN Location: [place] [address] Reason for Visit Chief Complaint: Melena/abdominal pain Subjective Subjective Patient is a 74-year-old lady who presented to the emergency department with abdominal pain with associated nausea and vomiting as well as melenic stools. Patient was found to be anemic with hemoglobin of 7.0 admitted to monitored bed for further management Objective Data Objective Data Vital Signs: Vital Signs Temp Pulse Resp BP Pulse Ox O2 Del Method 98.6 F 84 18 125/60 H 93 Room Air 12/28/24 04:50 12/28/24 04:50 12/28/24 04:50 12/28/24 04:50 12/28/24 04:50 12/28/24 04:50 Oxygen Delivery Method Room Air Weight: 104.1 kg Body Mass Index (BMI) 39.4 Intake & Output: Intake and Output for Last 24 Hours 12/26/24 12/27/24 12/28/24 23:59 23:59 23:59 Intake Total 582.42 / 582.42 Balance 582.42 / 582.42 Lab / Micro Data 12/28/24 04:10 12/28/24 04:10 Labs: Laboratory Results - last 24 hr 12/27/24 10:10: WBC 12.0 H, RBC 2.20 L, Hgb 7.0 L, Hct 21.2 L, MCV 96.4, MCH 31.8, MCHC 33.0, RDW Std Deviation 47.8 H, RDW Coeff of Ronnie 14.1, Plt Count 251,MPV 10.2, Immature Gran % (Auto) 0.600, Neut % (Auto) 67.3, Lymph % (Auto) 21.4,[place] % (Auto) 6.4, Eos % (Auto) 3.8, Baso % (Auto) 0.5, Absolute Neuts (auto) 8.1 H, Absolute Lymphs (auto) 2.57, Nucleated RBC % 0.2, Sodium 135, Potassium 3.8, Chloride 103, Carbon Dioxide 23.0, Anion Gap 10, BUN 23 H, Creatinine 0.68 L, Estim Creat Clear Calc 71.20, Est GFR (MDRD) Non-Af 91, BUN/Creatinine Ratio 34.2 H, Glucose 378 H, Hemoglobin A1c 7.8 H, Calcium 8.5, Total Bilirubin 0.23, AST 18, ALT 20, Alkaline Phosphatase 52, Total Protein 5.6 L, Albumin 3.4, Globulin 2.2, Albumin/Globulin Ratio 1.5, Lipase 25, Blood Type A POSITIVE, Antibody Screen NEGATIVE, Crossmatch See Detail 12/27/24 11:03: PT 13.6, INR 1.0, APTT 22.6 L, Lactic Acid 2.6 H* 12/27/24 11:23: Urine Color Yellow, Urine Clarity Sl. Cloudy, Urine pH 6.0, Ur Specific [place] 1.020, Urine Protein 15 H, Urine Glucose (UA) 1000 H, Urine Ketones Negative, Urine Occult Blood Negative, Urine Nitrite Negative, Urine Bilirubin Negative, Urine Urobilinogen Normal, Ur Leukocyte Esterase 100 H, Urine RBC 0-5 SEEN, Urine WBC 5-10 SEEN, Ur Squamous Epith Cells 5-10 SEEN, Urine Bacteria 1+, Urine Mucus RARE 12/27/24 15:30: Lactic Acid 2.0 12/27/24 16:40: Hgb 8.2 L, Hct 25.4 L 12/27/24 17:08: POC Glucose 190 H 12/27/24 21:31: Hgb 7.9 L, Hct 24.2 L 12/27/24 23:48: POC Glucose 177 H 12/28/24 04:10: WBC 9.5, RBC 2.28 L, Hgb 7.2 L, Hct 21.2 L, MCV 93.0, MCH 31.6, MCHC 34.0, RDW Std Deviation 53.9 H, RDW Coeff of Ronnie 16.3 H, Plt Count 217, MPV9.9, Immature Gran % (Auto) 0.400, Neut % (Auto) 55.3, Lymph % (Auto) 28.6, [place]% (Auto) 7.9, Eos % (Auto) 7.2 H, Baso % (Auto) 0.6, Absolute Neuts (auto) 5.2, Absolute Lymphs (auto) 2.70, Nucleated RBC % 0, PT 14.5, INR 1.1, APTT 23.3 L, Sodium 139, Potassium 4.1, Chloride 108, Carbon Dioxide 24.6, Anion Gap 6, BUN 12, Creatinine 0.58 L, Estim Creat Clear Calc 72.52, Est GFR (MDRD) Non-Af 95, BUN/Creatinine Ratio 20.1 H, Glucose 185 H, Calcium 8.0, Phosphorus 2.9, Magnesium 2.2, Total Bilirubin 0.33, AST 14, ALT 15, Alkaline Phosphatase 46, Total Protein 5.0 L, Albumin 2.9 L, Globulin 2.1 L, Albumin/Globulin Ratio 1.4, TSH 6.330 H 12/28/24 06:30: POC Glucose 186 H Micro: Microbiology 12/27/24 11:23 Stool Stool Occult Blood (PIA) - Final Occult Blood Positive Radiography Diagnostic Testing: Radiology Impression Abdomen/Pelvis CT 12/27/24 11:12 IMPRESSION: Diffuse fatty infiltration of the liver. Findings suggestive of pancreatitis in the region of the head of the pancreas. Small right renal cysts. Status post subtotal gastrectomy. Reading Location: [place] [address] Physical Exam Narrative GENERAL: cooperative HEENT: Atraumatic; normocephalic EYES; Anicteric, Normal Conjunctiva NECK; supple, normal thyroid, RESPIRATORY: Diminished to auscultation CARDIOVASCULAR: Regular S1 S2, GI: soft, normoactive bowel sounds, : No Renal angle tenderness; EXTREMITIES: No edema, no clubbing, MUSCULOSKELETAL: no muscle wasting NEURO: Awake; no lateralizing signs. SKIN: No Rash PSYCH; Flat affect Eyes conjunctivae normal Assessment & Plan Assessment/Plan (1) GI bleed: PLAN: Plan Patient is a 74-year-old lady who presented to the emergency department with abdominal pain with associated nausea and vomiting as well as melenic stools. Patient was found to be anemic with hemoglobin of 7.0 admitted to monitored bed for further management 1. Anemia ? Secondary to acute blood loss anemia suspected to be secondary to upper GI bleed exacerbated by the use of aspirin. Patient hemoglobin on admission was 7.0 patient was transfused with 1 unit PRBC started on Protonix drip after bolusadmitted to monitored bed H&H ordered consult placed to GI 2. Acute cystitis ? Patient urinalysis was abnormal and consistent with UTI started on ceftriaxone 3. Hypothyroidism ? Patient is on levothyroxine home dose continued 4. Peripheral arterial disease ? Patient is on antiplatelet held on admission 5. New onset diabetes mellitus type 2 ? Patient presented with hyperglycemia hemoglobin A1c ordered came back at 7.8. Subsequently placed on Accu-Cheks ACHS as well as 1800 ADA diet 6. Degenerative joint disease ? Pain meds as needed 7. Hepatosteatosis ? Consult was placed to GI on admission 8. Hypertension ? Blood pressure controlled, home medications continued with dose adjustment as needed 9. Mild intermittent asthma ? Currently not in exacerbation aerosol treatments as needed 10. GERD/history of Sarmiento's esophagus - Previous Robbie fundoplication; PPI as above 11 remote history of DVT ? Patient was treated appropriately 12. Class II obesity with BMI of 39.4 ? Complicating care weight loss advised 13. DVT prophylaxis ? Bilateral SCDs Time spent in the patient's overall evaluation,decision-making process, review of diagnostic data, adjustment of management, discussion with other providers, nursing nursing and ancillary staff involved in patient's care documentation, 52. Minutes Charges/Coding Visit Charges Inpatient E&M: 20142 Subs Hosp L3 12/28/24 1015 <Electronically signed by Keshav Elizondo MD> Cosigner Signature (if applicable): CC: ~ Signed [facility] Work Phone: 1([phone]) 571-582210-14-2025 Radiology Diagnostic study [facility]10-14-2025 Radiology Diagnostic study [facility]10-13-2025 History and physical note Author Shelia Campos [facility] Note Date/Time December 27, 2024 4 :51pm [facility] Medical Records Department [address] [place] [address] H&P Exam - Hospitalist 12/27/24 1440 MR#: [id number] Acct: [id number] Name: KESHIA ROJAS Rep #:[id number] : 1950 74 From: Shelia Campos DO PCP: Dr. Paulo Scott MD Status:AD M IN Location: [facility] [id number] HPI - General General Date of Admission: 12/27/24 Date of Service: 12/27/24 Chief Complaint: Melena/abdominal pain HPI Narrative KESHIA ROJAS, is a 74 F who presented to the emergency department [facility] on 12/28/2019 for chief complaint of abdominal pain and dark tarry stools. Patient states her symptoms started on Friday night. She been having some lower abdominal pain, some nausea, vomiting without coffee grounds, and dark melanotic stools with lightheadedness and shortness of breath with exertion. She denies any chest pain. She has a family history of colon cancer and follows with Dr. Casper she is on aspirin 81 mg daily. She states she has had 7 colonoscopies in 7 EGD's previously she has a remote history of Robbie fundoplication. She was in the emergency department on 12/05/2024 and found to have a urinary tract infection was treated Keflex at that time. Her hemoglobin then was 14.5. Vital signs at presentation showed temperature of 97.6, heart rate 91, blood pressure is 151/86 and pulse ox was 100% on room air. CBC showed mild leukocytosis with a white count of 12 she did not have a differential. Her hemoglobin was now 7 from 14.5 about 3 weeks ago. Coags were normal. Chemistrypanel showed elevated BUN/creatinine ratio with a BUN of 23 and serum creatinineof 0.68. At her previous ED visit her BUN was 15 and her creatinine was 0.89. She had a mild lactic acidosis when she came in at 2.6. Her blood sugar is markedly elevated at 378. She does not appear to be on any medication for diabetes. Her UA is somewhat suggestive of infection with positive leuk esterase, white cells and 1+ bacteria. CT abdomen pelvis shows diffuse fatty liver infiltration, findings suggestive of pancreatitis in the region of the head of the pancreatitis however the patient is asymptomatic with regards to abdominal pain in the epigastrium or left upper quadrant and small right renal cyst. Case was discussed with Dr. Casper with whom she follows on a regular basis. The patient was placed on Protonix drip and will be admitted to PCU for an expected hospitalization greater than 2 midnights. [facility] Medical History Loss of hearing Wears glasses Wears partial dentures Post-menopausal Anxiety Thyroid disease Ambulates with cane Urinary incontinence Difficulty swallowing Gastric reflux Non-smoker History of echocardiogram History of stress test Seasonal allergies History of edema Cardiology follow-up encounter History of cataract Ganglion cyst Atherosclerotic heart disease of [place] coronary artery without angina pectoris Cholelithiasis with [...] 100 mg capsule 300 mg PO QHS PAIN 01/11/14 12/26/24 History diazepam 5 mg tablet 5 mg PO QHS PRN anxiety 12/1712/26/24 History aspirin 81 mg tablet,delayed 81 mg PO DAILY@0800 HEART 02/09/19 12/26/24 History release multivitamin 1 tab PO DAILY SUPPLEMENT 12/26/24 History cholecalciferol (vitamin D3) 125 125 mcg PO DAILY SUPP LEMENT 10/11/19 05/05/22 History mcg (5,000 unit) capsule inhalational spacing device #1 ea 10/11/19 Unknown Rx (BreatheRite MDI Spacer) levothyroxine 88 mcg tablet 88 mcg PO DAILY THYROID 12/27/24 History cranberry fruit concentrate 250 mg 250 mg PO DAILY [facility] 01/31/23 12/27/24 History chewable tablet (Azo Cranberry) spironolactone 25 mg tablet 25 mg PO 1700 PRN HTN 07/1712/26/24 History amlodipine 5 mg tablet 5 mg PO DAILY HTN 10/15/24 1 History lactulose 10 gram/15 mL oral 30 ml PO QHS 12/27/2403/10 History solution Allergy/AdvReac Type Severity Reaction Status Date / Time latex Allergy Unknown PT UNSURE Verified 12/27/24 09:55 OF REACTION adhesive Allergy Unknown Verified 12/27/24 09:55 benzocaine (From Cetacaine) Allergy Unknown Verified 12/27/24 09:55 butamben (From Cetacaine) Allergy Vomiting Verified 12/27/24 09:55 cortisone (Cortisone) Allergy Unknown Verified 12/27/24 09:55 dipyridamole (From Aggrenox) Allergy Unknown Verified 12/27/24 09:55 lansoprazole (From Prevacid) Allergy Unknown Verified 12/27/24 09:55 meclizine Allergy Unknown Verified 12/27/24 09:55 methylprednisolone acetate Allergy Angioedema Verified 12/27/24 09:55 (From Depo-Medrol) metoprolol Allergy Unknown Verified 12/27/24 09:55 omeprazole (From Prilosec) Allergy Unknown Verified 12/27/24 09:55 omeprazole magnesium (From Allergy Unknown Verified 12/27/24 09:55 Prilosec) oxybutynin chloride (From Allergy Unknown Verified 12/27/24 09:55 Ditropan) povidone-iodine (From Allergy Unknown Verified 12/27/24 09:55 Betadine) sulfamethoxazole (From Allergy Unknown Verified 12/27/24 09:55 Bactrim) tegaserod (From Zelnorm) Allergy Hives Verified 12/27/24 09:55 tegaserod hydrogen maleate Allergy Unknown Verified 12/27/24 09:55 (From Zelnorm) tetracaine (From Cetacaine) Allergy Unknown Verified 12/27/24 09:55 tolterodine tartrate (From Allergy Unknown Verified 12/27/24 09:55 Detrol) trimethoprim (From Bactrim) Allergy Unknown Verified 12/27/24 09:55 lisinopril AdvReac Intermediate Angioedema Verified 12/27/24 09:55 adhesive tape AdvReac Rash Verified 12/27/24 09:55 codeine AdvReac Unknown Verified 12/27/24 09:55 mirabegron (From Myrbetriq) AdvReac Other Verified 12/27/24 09:55 tizanidine AdvReac Other Verified 12/27/24 09:55 vaccine adjuvant system, AdvReac Rash Verified 12/27/24 09:55 [id number] liposomal (From Shingrix (PF)) varicella-zoster virus AdvReac Rash Verified 12/27/24 09:55 glycoprotein E, recombinant (From Shingrix (PF)) Family [...] hernia repair History of tonsillectomy Social History housing: house Smoking Status: Never smoker alcohol intake: never substance use type: does not use caffeine: Yes Type: coffee Number of servings: 2 what type of physical activity do you participate in: walking frequency: 3-4 times per week ROS Constitutional Constitutional: Reports fatigue and weakness; Denies anorexia, change in weight,chills, fever(s), malaise, night sweats or other Eyes Eyes: Denies blurry vision, change in eye color, change in vision, discharge from eye(s), double vision, erythema, eye pain, loss of vision or other ENT HEENT: Denies abnormal hearing, dysphagia, ear pain, epistaxis, headache(s), hearing loss, nasal congestion, nasal discharge, post nasal drip, sinus pressure, sore throat or other Cardiovascular Cardiovascular: Denies chest pain, claudication, dyspnea on exertion, edema, lightheadedness, orthopnea, palpitations, paroxysmal nocturnal dyspnea, rapid heart rate, syncope or other Respiratory/Chest Respiratory/Chest: Reports shortness of breath with exertion and wheezing; Denies cough, dyspnea, excessive phlegm production, hemoptysis, productive cough, shortness of breath at rest or other Gastrointestinal Gastrointestinal: Reports abdominal pain, melena, nausea and vomiting; Denies coffee ground emesis, constipation, diarrhea, dyspepsia, hematemesis, hematochezia, loose stools or other Genitourinary Genitourinary: Reports urinary frequency; Denies burning urination, difficulty urinating, dysuria, hematuria, nocturia, urinary hesitancy, urinary incontinence, urinary urgency or other Musculoskeletal Musculoskeletal: Denies arthralgias, back pain, joint pain, joint stiffness, joint swelling, myalgias, neck pain or other Neurologic Neurologic: Denies abnormal gait, abnormal speech, confusion, disequilibrium, dizziness, focal weakness, headache(s), numbness, paresthesias, seizure-like activity, seizures, syncope, tingling, tremor(s) or other Psychiatric Psychiatric: Denies anxiety, depression, homicidal ideation, suicidal ideation or other Endocrine Endocrinology: Reports polydipsia and polyuria; Denies change in body appearance, cold intolerance, excessive sweating, heat intolerance or other Hematologic/Lymphatic Hematologic/Lymphatic: Denies anemia, easy bleeding, easy bruising, lymphadenopathy or other Allergic/Immunologic Allergic/Immunologic: Denies rhinitis, hives, eczemia, asthma or other Vital Signs Vital Signs Vital Signs: 12/27/24 09:52 12/27/24 11:47 12/27/24 13:17 Temperature 97.6 F L 98.0 F Temperature Source Temporal Oral Pulse Rate 91 81 75 Respiratory Rate 16 17 18 Blood Pressure 151/86 H 119/55 L Blood Pressure Mean 107 76 Blood Pressure Source Monitor Blood Pressure Position Supine Blood Pressure Location Right Arm Pulse Ox 100 97 96 Oxygen Delivery Method Room Air Room Air 12/27/24 13:32 12/27/24 14:21 Temperature 98.1 F 98.2 F Temperature Source Oral Oral Pulse Rate 74 73 Respiratory Rate 13 16 Blood Pressure 111/57 L 126/62 H Blood Pressure Mean 75 83 Blood Pressure Source Monitor Monitor Blood Pressure Position Semi-Fowlers Semi-Fowlers Blood Pressure Location Pulse Ox 94 99 Oxygen Delivery Method Room Air Room Air Weight Weight: 100.7 kg Body Mass Index (BMI) 38.1 Physical Exam Const alert, oriented x3, no apparent distress and well nourished; Negative for average body habitus or healthy appearing Constitutional Narrative: Obese, elderly, white female, sitting up in bed, spouse at bedside, nursing at bedside, appears comfortable, nontoxic General Appearance: cooperative HEENT normocephalic, head/scalp atraumatic, hearing grossly normal bilaterally and moist oral mucous membranes HEENT Narrative: Mallampati 4, no thrush Eyes Negative for conjunctivae normal Eyes Narrative: No scleral icterus, conjunctival pallor bilaterally Neck no lymphadenopathy and supple Neck Narrative: Neck is short and thick, trachea midline Resp normal respiratory effort, no retractions, no use of accessory muscles and clearto auscultation bilaterally Auscultation: Negative for rales, rhonchi or wheezes Cardio regular rate, regular rhythm, S1 normal heart sound, S2 normal heart sound, no murmurs, no rub, no gallops and no clicks GI normal to inspection, nondistended, normoactive bowel sounds, soft to palpation and non-tender Extremity no clubbing, cyanosis or edema Extremity Narrative: 2+ pedal and radial pulses bilaterally Skin skin turgor normal, no jaundice, no petechiae and no mottling Skin Narrative: Skin is pale Neuro moves all extremities and no focal motor deficits Speech: speech normal Psych affect normal Psych Narrative: very pleasant eye contact is good patient interacts appropriately Results Lab / Micro Data 12/27/24 10:10 12/27/24 10:10 Labs: Laboratory Results - last 24 hr 12/27/24 10:10: WBC 12.0 H, RBC 2.20 L, Hgb 7.0 L, Hct 21.2 L, MCV 96.4, MCH 31.8, MCHC 33.0, RDW Std Deviation 47.8 H, RDW Coeff of Ronnie 14.1, Plt Count 251,MPV 10.2, Immature Gran % (Auto) 0.600, Neut % (Auto) 67.3, Lymph % (Auto) 21.4,[place] % (Auto) 6.4, Eos % (Auto) 3.8, Baso % (Auto) 0.5, Absolute Neuts (auto) 8.1 H, Absolute Lymphs (auto) 2.57, Nucleated RBC % 0.2, Sodium 135, Potassium 3.8, Chloride 103, Carbon Dioxide 23.0, Anion Gap 10, BUN 23 H, Creatinine 0.68 L, Estim Creat Clear Calc 71.20, Est GFR (MDRD) Non-Af 91, BUN/Creatinine Ratio 34.2 H, Glucose 378 H, Calcium 8.5, Total Bilirubin 0.23, AST 18, ALT 20, Alkaline Phosphatase 52, Total Protein 5.6 L, Albumin 3.4, Globulin 2.2, Albumin/Globulin Ratio 1.5, Lipase 25, Blood Type A POSITIVE, Antibody Screen NEGATIVE, Crossmatch See Detail 12/27/24 11:03: PT 13.6, INR 1.0, APTT 22.6 L, Lactic Acid 2.6 H* 12/27/24 11:23: Urine Color Yellow, Urine Clarity Sl. Cloudy, Urine pH 6.0, Ur Specific [place] 1.020, Urine Protein 15 H, Urine Glucose (UA) 1000 H, Urine Ketones Negative, Urine Occult Blood Negative, Urine Nitrite Negative, Urine Bilirubin Negative, Urine Urobilinogen Normal, Ur Leukocyte Esterase 100 H, Urine RBC 0-5 SEEN, Urine WBC 5-10 SEEN, Ur Squamous Epith Cells 5-10 SEEN, Urine Bacteria 1+, Urine Mucus RARE Micro: Microbiology 12/27/24 11:23 Stool Stool Occult Blood (PIA) - Final Occult Blood Positive Imaging Radiology Impression Abdomen/Pelvis CT 12/27/24 11:12 IMPRESSION: Diffuse fatty infiltration of the liver. Findings suggestive of pancreatitis in the region of the head of the pancreas. Small right renal cysts. Status post subtotal gastrectomy. Reading Location: [facility] Assessment & Plan Assessment/Plan (1) GI bleed: (2) Acute anemia: (3) Lactic acidosis: (4) Adverse effects of medication: (5) Leukocytosis: (6) Abnormal urinalysis: (7) Hyperglycemia: PLAN: Plan Acute anemia - 3 weeks ago hemoglobin was 14.5 with a hemoglobin of 7 today - Cycle hemoglobin - Elevated BUN to creatinine ratio so suspect upper GI bleed - Protonix bolus and drip initiated - Clear liquids with no reds and then n.p.o. after midnight - Transfuse 1 unit packed red blood cells -Hold aspirin - GI consultation-Dr. Casper aware per ED GI bleed - Suspect upper with elevated BUN/creatinine ratio - Protonix drip - Transfusion as above - Clear liquids without reds and then n.p.o. 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 and restart when appropriate - Continue GI follow-up Nonobstructive CAD/essential hypertension/PVD - Mild CAD per cath in 2006 - Hold aspirin - Hold home Aldactone for now - Continue home amlodipine Neuropathy - Continue home gabapentin - patient states that this has been problematic for about the last year - Blood sugars are markedly elevated and suspect patient is diabetic but is undiagnosed Asthma - On no chronic medication at this time - Had previously been on budesonide - Has not seen pulmonary medicine in over a year GERD/history of Sarmiento's esophagus - Previous Robbie fundoplication - PPI as above History of DVT - Remote - Not currently anticoagulated Obesity - BMI 36.4 - Complicates treatment, prognosis, outcomes - Suspect patient may have some baseline CARLINE and should have an outpatient polysomnography DVT prophylaxis - SCDs - Chemoprophylaxis contraindicated due to current GI bleed CODE STATUS - Full code as verified at the time of admission Charges/Coding Visit Charges Inpatient E&M: 95087 Init Hosp L3 12/27/24 1551 <Electronically signed by Shelia Campos DO> Cosigner Signature (if applicable): CC: Dr. Shelia Campos DO; Dr. Paulo cSott MD~ Signed [facility] Work Phone: [phone] Discharge summary Author Shashi Veronica [facility] Note Date/Time December 27, 2024 4 :24pm [facility] Medical Records Department [address] [place] [address] Emergency Department Summary 12/27/24 MR#: [id number] Acct: [id number] Name: KESHIA ROJAS Rep #:[id number] : 1950 74 From: Shashi asif DO PCP: Dr. Paulo Scott MD Status:AD M IN Location: [place] [address] HPI History of Present Illness Chief Complaint: Abd Pain Narrative Narrative: Chief complaint and HPI: 74-year-old female with past medical history of GERD, IBS, hypothyroidism, HTN presents for evaluation of lower abdominal pain. Patient states since Friday she has been having lower abdominal pain, nausea, vomiting, dark stools, and lightheadedness. She denies any fever, chills, chestpain, dysuria. States she was recently diagnosed with a UTI which she finished antibiotics. Patient states she has a a family history of colon cancer in which she follows with Dr. Casper. Review of systems: See HPI Medications: As listed on the chart Allergies: As listed on the chart PFSH: Per chart Vital signs: As listed on the chart. Reviewed. Physical exam: Gen: A&O x3, NAD Head: Normocephalic, atraumatic Eyes: No sclera icterus, conjunctiva clear ENT: Dry mucous membranes Neck: Trachea midline CV: RRR, no murmurs, no peripheral edema Resp: Lungs CTA BL, no w/r/c GI: Abd soft, non-distended, tender to palpation in the bilateral lower quadrant, no r/r Rectal: Non-thrombosed external hemorrhoids. Normal tone and sensation. No masses, fluctuance, or tenderness. No pain out of proportion. Musc: Moves all extremities, no deformity Skin: Warm, dry, pale Neuro: Alert, oriented, grossly intact, sensation intact Psych: Cooperative, appropriate mood and affect [facility] Medical History Loss of hearing Wears glasses Wears partial dentures Post-menopausal Anxiety Thyroid disease Ambulates with cane Urinary incontinence Difficulty swallowing Gastric reflux Non-smoker History of echocardiogram History of stress test Seasonal allergies History of edema Cardiology follow-up encounter History of cataract Ganglion cyst Atherosclerotic heart disease of [place] coronary artery without angina pectoris Cholelithiasis with [...] 100 mg capsule 300 mg PO QHS PAIN 01/11/14 12/26/24 History diazepam 5 mg tablet 5 mg PO QHS PRN anxiety 12/1712/26/24 History aspirin 81 mg tablet,delayed 81 mg PO DAILY@0800 HEART 02/09/19 12/26/24 History release multivitamin 1 tab PO DAILY SUPPLEMENT 12/26/24 History cholecalciferol (vitamin D3) 125 125 mcg PO DAILY SUPP LEMENT 10/11/19 05/05/22 History mcg (5,000 unit) capsule inhalational spacing device #1 ea 10/11/19 Unknown Rx (BreatheRite MDI Spacer) levothyroxine 88 mcg tablet 88 mcg PO DAILY THYROID 12/27/24 History cranberry fruit concentrate 250 mg 250 mg PO DAILY URI [facility] 01/31/23 12/27/24 History chewable tablet (Azo Cranberry) spironolactone 25 mg tablet 25 mg PO 1700 PRN HTN 07/1712/26/24 History amlodipine 5 mg tablet 5 mg PO DAILY HTN 10/15/24 1 History lactulose 10 gram/15 mL oral 30 ml PO QHS 12/27/2403/10 History solution Allergy/AdvReac Type Severity Reaction Status Date / Time latex Allergy Unknown PT UNSURE Verified 12/27/24 09:55 OF REACTION adhesive Allergy Unknown Verified 12/27/24 09:55 benzocaine (From Cetacaine) Allergy Unknown Verified 12/27/24 09:55 butamben (From Cetacaine) Allergy Vomiting Verified 12/27/24 09:55 cortisone (Cortisone) Allergy Unknown Verified 12/27/24 09:55 dipyridamole (From Aggrenox) Allergy Unknown Verified 12/27/24 09:55 lansoprazole (From Prevacid) Allergy Unknown Verified 12/27/24 09:55 meclizine Allergy Unknown Verified 12/27/24 09:55 methylprednisolone acetate Allergy Angioedema Verified 12/27/24 09:55 (From Depo-Medrol) metoprolol Allergy Unknown Verified 12/27/24 09:55 omeprazole (From Prilosec) Allergy Unknown Verified 12/27/24 09:55 omeprazole magnesium (From Allergy Unknown Verified 12/27/24 09:55 Prilosec) oxybutynin chloride (From Allergy Unknown Verified 12/27/24 09:55 Ditropan) povidone-iodine (From Allergy Unknown Verified 12/27/24 09:55 Betadine) sulfamethoxazole (From Allergy Unknown Verified 12/27/24 09:55 Bactrim) tegaserod (From Zelnorm) Allergy Hives Verified 12/27/24 09:55 tegaserod hydrogen maleate Allergy Unknown Verified 12/27/24 09:55 (From Zelnorm) tetracaine (From Cetacaine) Allergy Unknown Verified 12/27/24 09:55 tolterodine tartrate (From Allergy Unknown Verified 12/27/24 09:55 Detrol) trimethoprim (From Bactrim) Allergy Unknown Verified 12/27/24 09:55 lisinopril AdvReac Intermediate Angioedema Verified 12/27/24 09:55 adhesive tape AdvReac Rash Verified 12/27/24 09:55 codeine AdvReac Unknown Verified 12/27/24 09:55 mirabegron (From Myrbetriq) AdvReac Other Verified 12/27/24 09:55 tizanidine AdvReac Other Verified 12/27/24 09:55 vaccine adjuvant system, AdvReac Rash Verified 12/27/24 09:55 AS01B liposomal (From Shingrix (PF)) varicella-zoster virus AdvReac Rash Verified 12/27/24 09:55 glycoprotein E, recombinant (From Shingrix (PF)) Family [...] hernia repair History of tonsillectomy Social History housing: house Smoking Status: Never smoker alcohol intake: never substance use type: does not use caffeine: Yes Type: coffee Number of servings: 2 what type of physical activity do you participate in: walking frequency: 3-4 times per week EXAM Physical Exam Const Vital Signs: 12/27/24 09:52 12/27/24 11:47 12/27/24 13:17 Temperature 97.6 F L 98.0 F Temperature Source Temporal Oral Pulse Rate 91 81 75 Respiratory Rate 16 17 18 Blood Pressure 151/86 H 119/55 L Blood Pressure Mean 107 76 Blood Pressure Source Monitor Blood Pressure Position Supine Blood Pressure Location Right Arm Pulse Ox 100 97 96 Oxygen Delivery Method Room Air Room Air 12/27/24 13:32 12/27/24 14:21 12/27/24 14:32 Temperature 98.1 F 98.2 F 98.2 F Temperature Source Oral Oral Temporal Pulse Rate 74 73 78 Respiratory Rate 13 16 15 Blood Pressure 111/57 L 126/62 H 117/70 Blood Pressure Mean 75 83 85 Blood Pressure Source Monitor Monitor Monitor Blood Pressure Position Semi-Fowlers Semi-Fowlers Blood Pressure Location Pulse Ox 94 99 98 Oxygen Delivery Method Room Air Room Air Room Air MDM MDM MDM Narrative Medical decision making narrative: 74-year-old female with past medical history of GERD, IBS, hypothyroidism, HTN presents for evaluation of lower abdominal pain. Patient states since Friday she has been having lower abdominal pain, nausea, vomiting, dark stools, and lightheadedness. States she was recently diagnosed with a UTI which she finishedantibiotics. On chart review, patient had colonoscopy by Dr. Casper in April2023. Found a polyp in the cecum. She has colonoscopies every 5 years. She also had an EGD at that time that showed short segment Sarmiento's esophagus. Shehas a Toupet fundoplication. The wrap appears loose. Differential diagnosis includes but is not limited to GI bleed, diverticulosis, diverticulitis, PUD, electrolyte abnormality, dehydration, anemia. NS bolus, Zofran, morphine ordered for symptoms. Abdominal pain workup ordered including CT abdomen pelvis. CBC with mild leukocytosis of 12. Patient has anemia with hemoglobin of 7. In November her hemoglobin was 14.5. Patient will require transfusion. Patient was typed and crossed. 1 unit ordered. Platelets unremarkable. INR unremarkable. CMP shows BUN of 23 with a creatinine of 0.68. Possible upper GIbleed. IV Protonix ordered. No transaminitis. Lipase unremarkable. Lactic acid 2.6. Patient receiving fluids. UA positive for bacteria but not a clean sample. Urine culture sent. CT abdomen pelvis shows diffuse fatty infiltration of the liver. Findings suggestive of pancreatitis in the region of the head of the pancreas. This does not correspond with her lipase. Patient not tender in the epigastrium. Small right renal cyst. Status post subtotal gastrectomy. Patient symptoms are likely secondary to GI bleed. Dr. Casper consulted. Agrees with admission and endoscopy. Spoke with the hospitalist service who accepted admission. Recommendation to start Protonix drip. Patient was updatedof all the results and the plan. She confirmed understand the plan. Impression: 1. GI bleed 2. Acute anemia secondary to #1 3. Lactic acidosis secondary to #1 Lab Data Labs: Laboratory Results - last 24 hr 12/27/24 12/27/24 12/27/24 10:10 11:03 11:23 WBC 12.0 H RBC 2.20 L Hgb 7.0 L Hct 21.2 L MCV 96.4 MCH 31.8 MCHC 33.0 RDW Std Deviation 47.8 H RDW Coeff of Ronnie 14.1 Plt Count 251 MPV 10.2 Immature Gran % (Auto) 0.600 Neut % (Auto) 67.3 Lymph % (Auto) 21.4 [place] % (Auto) 6.4 Eos % (Auto) 3.8 Baso % (Auto) 0.5 Absolute Neuts (auto) 8.1 H Absolute Lymphs (auto) 2.57 Nucleated RBC % 0.2 PT 13.6 INR 1.0 APTT 22.6 L Sodium 135 Potassium 3.8 Chloride 103 Carbon Dioxide 23.0 Anion Gap 10 BUN 23 H Creatinine 0.68 L Estim Creat Clear Calc 71.20 Est GFR (MDRD) Non-Af 91 BUN/Creatinine Ratio 34.2 H Glucose 378 H Lactic Acid 2.6 H* Calcium 8.5 Total Bilirubin 0.23 AST 18 ALT 20 Alkaline Phosphatase 52 Total Protein 5.6 L Albumin 3.4 Globulin 2.2 Albumin/Globulin Ratio 1.5 Lipase 25 Urine Color Yellow Urine Clarity Sl. Cloudy Urine pH 6.0 Ur Specific [place] 1.020 Urine Protein 15 H Urine Glucose (UA) 1000 H Urine Ketones Negative Urine Occult Blood Negative Urine Nitrite Negative Urine Bilirubin Negative Urine Urobilinogen Normal Ur Leukocyte Esterase 100 H Urine RBC 0-5 SEEN Urine WBC 5-10 SEEN Ur Squamous Epith Cells 5-10 SEEN Urine Bacteria 1+ Urine Mucus RARE Blood Type A POSITIVE Antibody Screen NEGATIVE Crossmatch See Detail Radiography Diagnostic Testing: Clinical Impression(s) from Imaging Studies Abdomen/Pelvis CT 12/27/24 11:12 IMPRESSION: Diffuse fatty infiltration of the liver. Findings suggestive of pancreatitis in the region of the head of the pancreas. Small right renal cysts. Status post subtotal gastrectomy. Reading Location: [place] [address] Discharge Plan Disposition Disposition: Acute Care Hospital [facility] Discharge Date/Time: 12/27/24 15:14 What to do if you have Problems For any increased pain, shortness of breath, bleeding, nausea or vomiting, chestpain, or any unexpected problems, contact your Primary Care Provider. Call [facility] ([phone]) or report to the closest Emergency Room. Call 911 if necessary. 12/27/24 1524 <Electronically signed by Shashi Veronica DO> Cosigner Signature (if applicable): CC: Dr. Paulo Scott MD ~ Signed [facility] Work Phone: [phone] Discharge summary Author [facility] Note Date/Time December 27, 2024 3 :24pm [facility] Medical Records Department [address] [place] [id number] Emergency Department Summary 12/27/24 MR#: [id number] Acct: [id number] Name: KESHIA ROJAS Rep #:[id number] : 1950 74 From: Shashi asif DO PCP: Dr. Paulo Scott MD Status:AD M IN Location: [place] [address] HPI History of Present Illness Chief Complaint: Abd Pain Narrative Narrative: Chief complaint and HPI: 74-year-old female with past medical history of GERD, IBS, hypothyroidism, HTN presents for evaluation of lower abdominal pain. Patient states since Friday she has been having lower abdominal pain, nausea, vomiting, dark stools, and lightheadedness. She denies any fever, chills, chestpain, dysuria. States she was recently diagnosed with a UTI which she finished antibiotics. Patient states she has a a family history of colon cancer in which she follows with Dr. Casper. Review of systems: See HPI Medications: As listed on the chart Allergies: As listed on the chart PFSH: Per chart Vital signs: As listed on the chart. Reviewed. Physical exam: Gen: A&O x3, NAD Head: Normocephalic, atraumatic Eyes: No sclera icterus, conjunctiva clear ENT: Dry mucous membranes Neck: Trachea midline CV: RRR, no murmurs, no peripheral edema Resp: Lungs CTA BL, no w/r/c GI: Abd soft, non-distended, tender to palpation in the bilateral lower quadrant, no r/r Rectal: Non-thrombosed external hemorrhoids. Normal tone and sensation. No masses, fluctuance, or tenderness. No pain out of proportion. Musc: Moves all extremities, no deformity Skin: Warm, dry, pale Neuro: Alert, oriented, grossly intact, sensation intact Psych: Cooperative, appropriate mood and affect [facility] Medical History Loss of hearing Wears glasses Wears partial dentures Post-menopausal Anxiety Thyroid disease Ambulates with cane Urinary incontinence Difficulty swallowing Gastric reflux Non-smoker History of echocardiogram History of stress test Seasonal allergies History of edema Cardiology follow-up encounter History of cataract Ganglion cyst Atherosclerotic heart disease of [place] coronary artery without angina pectoris Cholelithiasis with [...] 100 mg capsule 300 mg PO QHS PAIN 01/11/14 12/26/24 History diazepam 5 mg tablet 5 mg PO QHS PRN anxiety 12/1712/26/24 History aspirin 81 mg tablet,delayed 81 mg PO DAILY@0800 HEART 02/09/19 12/26/24 History release multivitamin 1 tab PO DAILY SUPPLEMENT 12/26/24 History cholecalciferol (vitamin D3) 125 125 mcg PO DAILY SUPP LEMENT 10/11/19 05/05/22 History mcg (5,000 unit) capsule inhalational spacing device #1 ea 10/11/19 Unknown Rx (BreatheRite MDI Spacer) levothyroxine 88 mcg tablet 88 mcg PO DAILY THYROID 12/27/24 History cranberry fruit concentrate 250 mg 250 mg PO DAILY URI [facility] 01/31/23 12/27/24 History chewable tablet (Azo Cranberry) spironolactone 25 mg tablet 25 mg PO 1700 PRN HTN 07/1712/26/24 History amlodipine 5 mg tablet 5 mg PO DAILY HTN 10/15/24 1 History lactulose 10 gram/15 mL oral 30 ml PO QHS 12/27/2403/10 History solution Allergy/AdvReac Type Severity Reaction Status Date / Time latex Allergy Unknown PT UNSURE Verified 12/27/24 09:55 OF REACTION adhesive Allergy Unknown Verified 12/27/24 09:55 benzocaine (From Cetacaine) Allergy Unknown Verified 12/27/24 09:55 butamben (From Cetacaine) Allergy Vomiting Verified 12/27/24 09:55 cortisone (Cortisone) Allergy Unknown Verified 12/27/24 09:55 dipyridamole (From Aggrenox) Allergy Unknown Verified 12/27/24 09:55 lansoprazole (From Prevacid) Allergy Unknown Verified 12/27/24 09:55 meclizine Allergy Unknown Verified 12/27/24 09:55 methylprednisolone acetate Allergy Angioedema Verified 12/27/24 09:55 (From Depo-Medrol) metoprolol Allergy Unknown Verified 12/27/24 09:55 omeprazole (From Prilosec) Allergy Unknown Verified 12/27/24 09:55 omeprazole magnesium (From Allergy Unknown Verified 12/27/24 09:55 Prilosec) oxybutynin chloride (From Allergy Unknown Verified 12/27/24 09:55 Ditropan) povidone-iodine (From Allergy Unknown Verified 12/27/24 09:55 Betadine) sulfamethoxazole (From Allergy Unknown Verified 12/27/24 09:55 Bactrim) tegaserod (From Zelnorm) Allergy Hives Verified 12/27/24 09:55 tegaserod hydrogen maleate Allergy Unknown Verified 12/27/24 09:55 (From Zelnorm) tetracaine (From Cetacaine) Allergy Unknown Verified 12/27/24 09:55 tolterodine tartrate (From Allergy Unknown Verified 12/27/24 09:55 [facility]) trimethoprim (From Bactrim) Allergy Unknown Verified 12/27/24 09:55 lisinopril AdvReac Intermediate Angioedema Verified 12/27/24 09:55 adhesive tape AdvReac Rash Verified 12/27/24 09:55 codeine AdvReac Unknown Verified 12/27/24 09:55 mirabegron (From Myrbetriq) AdvReac Other Verified 12/27/24 09:55 tizanidine AdvReac Other Verified 12/27/24 09:55 vaccine adjuvant system, AdvReac Rash Verified 12/27/24 09:55 [id number] liposomal (From Shingrix (PF)) varicella-zoster virus AdvReac Rash Verified 12/27/24 09:55 glycoprotein E, recombinant (From Shingrix (PF)) Family [...] hernia repair History of tonsillectomy Social History housing: house Smoking Status: Never smoker alcohol intake: never substance use type: does not use caffeine: Yes Type: coffee Number of servings: 2 what type of physical activity do you participate in: walking frequency: 3-4 times per week EXAM Physical Exam Const Vital Signs: 12/27/24 09:52 12/27/24 11:47 12/27/24 13:17 Temperature 97.6 F L 98.0 F Temperature Source Temporal Oral Pulse Rate 91 81 75 Respiratory Rate 16 17 18 Blood Pressure 151/86 H 119/55 L Blood Pressure Mean 107 76 Blood Pressure Source Monitor Blood Pressure Position Supine Blood Pressure Location Right Arm Pulse Ox 100 97 96 Oxygen Delivery Method Room Air Room Air 12/27/24 13:32 12/27/24 14:21 12/27/24 14:32 Temperature 98.1 F 98.2 F 98.2 F Temperature Source Oral Oral Temporal Pulse Rate 74 73 78 Respiratory Rate 13 16 15 Blood Pressure 111/57 L 126/62 H 117/70 Blood Pressure Mean 75 83 85 Blood Pressure Source Monitor Monitor Monitor Blood Pressure Position Semi-Fowlers Semi-Fowlers Blood Pressure Location Pulse Ox 94 99 98 Oxygen Delivery Method Room Air Room Air Room Air MDM MDM MDM Narrative Medical decision making narrative: 74-year-old female with past medical history of GERD, IBS, hypothyroidism, HTN presents for evaluation of lower abdominal pain. Patient states since Friday she has been having lower abdominal pain, nausea, vomiting, dark stools, and lightheadedness. States she was recently diagnosed with a UTI which she finishedantibiotics. On chart review, patient had colonoscopy by Dr. Casper in April2023. Found a polyp in the cecum. She has colonoscopies every 5 years. She also had an EGD at that time that showed short segment Sarmiento's esophagus. Shehas a Toupet fundoplication. The wrap appears loose. Differential diagnosis includes but is not limited to GI bleed, diverticulosis, diverticulitis, PUD, electrolyte abnormality, dehydration, anemia. NS bolus, Zofran, morphine ordered for symptoms. Abdominal pain workup ordered including CT abdomen pelvis. CBC with mild leukocytosis of 12. Patient has anemia with hemoglobin of 7. In November her hemoglobin was 14.5. Patient will require transfusion. Patient was typed and crossed. 1 unit ordered. Platelets unremarkable. INR unremarkable. CMP shows BUN of 23 with a creatinine of 0.68. Possible upper GIbleed. IV Protonix ordered. No transaminitis. Lipase unremarkable. Lactic acid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 butamben (From Cetacaine) Allergy Vomiting Verified 12/05/24 12:29 cortisone (Cortisone) Allergy Unknown Verified 12/05/24 12:29 dipyridamole (From Aggrenox) Allergy Unknown Verified 12/05/24 12:29 lansoprazole (From Prevacid) Allergy Unknown Verified 12/05/24 12:29 meclizine Allergy Unknown Verified 12/05/24 12:29 methylprednisolone acetate Allergy Angioedema Verified 12/05/24 12:29 (From Depo-Medrol) metoprolol Allergy Unknown Verified 12/05/24 12:29 omeprazole (From Prilosec) Allergy Unknown Verified 12/05/24 12:29 omeprazole magnesium (From Allergy Unknown Verified 12/05/24 12:29 Prilosec) oxybutynin chloride (From Allergy Unknown Verified 12/05/24 12:29 Ditropan) povidone-iodine (From Allergy Unknown Verified 12/05/24 12:29 Betadine) sulfamethoxazole (From Allergy Unknown Verified 12/05/24 12:29 Bactrim) tegaserod (From Zelnorm) Allergy Hives Verified 12/05/24 12:29 tegaserod hydrogen maleate Allergy Unknown Verified 12/05/24 12:29 (From Zelnorm) tetracaine (From Cetacaine) Allergy Unknown Verified 12/05/24 12:29 tolterodine tartrate (From Allergy Unknown Verified 12/05/24 12:29 Detrol) trimethoprim (From Bactrim) Allergy Unknown Verified 12/05/24 12:29 lisinopril AdvReac Intermediate Angioedema Verified 12/05/24 12:29 adhesive tape AdvReac Rash Verified 12/05/24 12:29 codeine AdvReac Unknown Verified 12/05/24 12:29 mirabegron (From Myrbetriq) AdvReac Other Verified 12/05/24 12:29 tizanidine AdvReac Other Verified 12/05/24 12:29 vaccine adjuvant system, AdvReac Rash Verified 12/05/24 12:29 AS01B liposomal (From Shingrix (PF)) varicella-zoster virus AdvReac Rash Verified 12/05/24 12:29 glycoprotein E, recombinant (From Shingrix (PF)) Family [...] hernia repair History of tonsillectomy Social History housing: house Smoking Status: Never smoker alcohol intake: never substance use type: does not use caffeine: Yes Type: coffee Number of servings: 2 what type of physical activity do you participate in: walking frequency: 3-4 times per week ROS <Dr. Shanika Galicia MD - Last Filed: 12/07/24 00:12> ROS ED ROS Narrative see HPI EXAM <Dr. Shanika Galicia MD - Last Filed: 12/07/24 00:12> Physical Exam Narrative Exam Narrative: Vital signs: Reviewed General: Alert and orientedx3. No acute distress HEENT: Head is normocephalic and atraumatic, sinuses nontender, pupils equal round and reactive. Nares are patent. Oropharynx and throat exams normal. Neck: Supple without lymphadenopathy nontender Cardiovascular: Regular rate and rhythm, no murmurs. No rubs or gallops. Normal S1 and S2 Respiratory: Clear to auscultation bilaterally. No wheezes, rales, rhonchi Abdominal: Soft and nontender. Normal bowel sounds. No guarding or rebound. Nonsurgical abdomen Extremities: No tenderness. No bruising. Normal range of motion. Normal sensation. Skin: No rash or redness. Neuro: able to ambulate without difficulty. The rest of the physical exam is unremarkable Const Vital Signs: 12/05/24 12:29 12/05/24 13:11 12/05/24 13:29 Temperature 97.8 F Temperature Source Oral Pulse Rate 71 79 Pulse Rate [Lying] 80 Pulse Rate [Sitting (for 1 minute prior to obtaining)] 82 Pulse Rate [Standing (for 1 minute prior to obtaining)] 90 Respiratory Rate 16 Blood Pressure 142/86 H 132/83 H Blood Pressure [Lying] 132/68 H Blood Pressure [Sitting (for 1 minute prior to obtaining)] 143/83 H Blood Pressure [Standing (for 1 minute prior to obtaining)] 140/80 H Blood Pressure Mean 104 99 Blood Pressure Mean [Lying] 89 Blood Pressure Mean [Sitting (for 1 minute prior to obtaining)] 103 Blood Pressure Mean [Standing (for 1 minute prior to obtaining)] 100 Pulse Ox 98 100 Oxygen Delivery Method Room Air 12/05/24 14:00 12/05/24 15:00 Temperature Temperature Source Pulse Rate 75 82 Pulse Rate [Lying] Pulse Rate [Sitting (for 1 minute prior to obtaining)] Pulse Rate [Standing (for 1 minute prior to obtaining)] Respiratory Rate 16 Blood Pressure 149/71 H 128/81 H Blood Pressure [Lying] Blood Pressure [Sitting (for 1 minute prior to obtaining)] Blood Pressure [Standing (for 1 minute prior to obtaining)] Blood Pressure Mean 97 96 Blood Pressure Mean [Lying] Blood Pressure Mean [Sitting (for 1 minute prior to obtaining)] Blood Pressure Mean [Standing (for 1 minute prior to obtaining)] Pulse Ox 98 96 Oxygen Delivery Method NIHSS NIHSS Initial: 1a Level of Consciousness: 0 1b LOC Questions (Score 2 if aphasic/stupor): 0 1c LOC Commands (Only score 1st attempt): 0 2 Best Gaze (If aphasic, use reflexive mvmts.): 0 3 Visual: 0 4 Facial Palsy: 0 5 Motor Arm Right (UN = amputation/fusion): 0 5 Motor Arm Left: 0 6 Motor Leg Right: 0 6 Motor Leg Left: 0 7 Limb ataxia (Only + if out of proportion): 0 8 Sensory (Aphasia/stupor=0 or 1, coma=2): 0 9 Best Language: 0 10 Dysarthria (mute, coma=2, intubated=UN): 0 11 Extinction and Inattention (only scored if +): 0 Total Score: 0 <Dr. Luis Page MD - Last Filed: 12/05/24 16:14> Physical Exam Const Vital Signs: 12/05/24 12:29 12/05/24 13:11 12/05/24 13:29 Temperature 97.8 F Temperature Source Oral Pulse Rate 71 79 Pulse Rate [Lying] 80 Pulse Rate [Sitting (for 1 minute prior to obtaining)] 82 Pulse Rate [Standing (for 1 minute prior to obtaining)] 90 Respiratory Rate 16 Blood Pressure 142/86 H 132/83 H Blood Pressure [Lying] 132/68 H Blood Pressure [Sitting (for 1 minute prior to obtaining)] 143/83 H Blood Pressure [Standing (for 1 minute prior to obtaining)] 140/80 H Blood Pressure Mean 104 99 Blood Pressure Mean [Lying] 89 Blood Pressure Mean [Sitting (for 1 minute prior to obtaining)] 103 Blood Pressure Mean [Standing (for 1 minute prior to obtaining)] 100 Pulse Ox 98 100 Oxygen Delivery Method Room Air 12/05/24 14:00 12/05/24 15:00 Temperature Temperature Source Pulse Rate 75 82 Pulse Rate [Lying] Pulse Rate [Sitting (for 1 minute prior to obtaining)] Pulse Rate [Standing (for 1 minute prior to obtaining)] Respiratory Rate 16 Blood Pressure 149/71 H 128/81 H Blood Pressure [Lying] Blood Pressure [Sitting (for 1 minute prior to obtaining)] Blood Pressure [Standing (for 1 minute prior to obtaining)] Blood Pressure Mean 97 96 Blood Pressure Mean [Lying] Blood Pressure Mean [Sitting (for 1 minute prior to obtaining)] Blood Pressure Mean [Standing (for 1 minute prior to obtaining)] Pulse Ox 98 96 Oxygen Delivery Method NIHSS NIHSS Initial: Total Score: 0 MDM <Dr. Shanika Galicia MD - Last Filed: 12/07/24 00:12> [facility] MDM Narrative Medical decision making narrative: Patient is a 74-year-old female presenting to the emergency department for an episode of lightheadedness, nausea and generalized weakness. Patient was seen and examined. Vitals are stable. Patient resting bed comfortably no acute distress. Fluid bolus started. Differential includes but is not limited to: Dehydration, electrolyte disturbance, UTI, pneumonia, ACS EKG showed normal sinus rhythm, however very poor baseline and difficult to interpret. There are no ischemic changes. There is no dysrhythmia noted. CBC with a mild leukocytosis of 13.2 and a normal hemoglobin. Urinalysis with smallamount of leukocyte esterase and 1+ bacteria however no WBCs or nitrites. Will send for culture but do not think this is a UTI. Initial troponin mildly elevated at 23, will continue to reflex. Chest x-ray reviewed by myself, no abnormalities noted. Radiology read with no acute radiographic abnormalities. At time of signout, BMP and second troponin pending. Clinical impression: Lightheaded Nausea Generalized weakness History & Record Review Discussion w/independent historian: Patient and Family Lab Data Attestation: I reviewed the patient's lab results. Labs: Laboratory Results - last 24 hr 12/05/24 12/05/24 12/05/24 12:41 14:36 15:06 WBC 13.2 H RBC 4.67 Hgb 14.5 Hct 43.9 MCV 94.0 MCH 31.0 MCHC 33.0 RDW Std Deviation 47.5 H RDW Coeff of Ronnie 13.7 Plt Count 276 MPV 10.6 Immature Gran % (Auto) 0.400 Neut % (Auto) 76.4 H Lymph % (Auto) 13.0 L [place] % (Auto) 8.0 Eos % (Auto) 1.4 Baso % (Auto) 0.8 Absolute Neuts (auto) 10.1 H Absolute Lymphs (auto) 1.71 Nucleated RBC % 0 Sodium 136 Potassium 4.3 Chloride 99 Carbon Dioxide 21.8 Anion Gap 15 BUN 15 Creatinine 0.89 Estim Creat Clear Calc 62.56 Est GFR (MDRD) Non-Af 68 BUN/Creatinine Ratio 17.3 Glucose 258 H Calcium 9.6 Troponin T High Sens 23 H Troponin T Hi Sens 2 Hr 17 H Urine Color Yellow Urine Clarity Clear Urine pH 7.0 Ur Specific [place] 1.010 Urine Protein Negative Urine Glucose (UA) 1000 H Urine Ketones Negative Urine Occult Blood Negative Urine Nitrite Negative Urine Bilirubin Negative Urine Urobilinogen Normal Ur Leukocyte Esterase 25 H Urine RBC 0 SEEN Urine WBC 0-5 SEEN Ur Squamous Epith Cells 0-5 SEEN Urine Bacteria 1+ Urine Mucus 0 SEEN Radiography Chest X-Ray - ED: 2 View, Read by ED Physician, Normal, No Acute Disease and No Infiltrates Diagnostic Testing: Clinical Impression(s) from Imaging Studies Chest X-Ray 12/05/24 13:02 IMPRESSION: No acute cardiopulmonary abnormalities. Reading Location: [id number] <Dr. Luis Page MD - Last Filed: 12/05/24 16:14> [facility] Lab Data Lab results narrative: White count is slightly elevated. There is a slight shift. H&H and indices arenormal. First troponin was slightly elevated at 23. Second troponin is 17 witha delta of -6. Urine reveals bacteria without pyuria. Blood sugar is elevated to 58 with a normal CO2 anion gap. Labs: Laboratory Results - last 24 hr 12/05/24 12/05/24 12/05/24 12:41 14:36 15:06 WBC 13.2 H RBC 4.67 Hgb 14.5 Hct 43.9 MCV 94.0 MCH 31.0 MCHC 33.0 RDW Std Deviation 47.5 H RDW Coeff of Ronnie 13.7 Plt Count 276 MPV 10.6 Immature Gran % (Auto) 0.400 Neut % (Auto) 76.4 H Lymph % (Auto) 13.0 L [place] % (Auto) 8.0 Eos % (Auto) 1.4 Baso % (Auto) 0.8 Absolute Neuts (auto) 10.1 H Absolute Lymphs (auto) 1.71 Nucleated RBC % 0 Sodium 136 Potassium 4.3 Chloride 99 Carbon Dioxide 21.8 Anion Gap 15 BUN 15 Creatinine 0.89 Estim Creat Clear Calc 62.56 Est GFR (MDRD) Non-Af 68 BUN/Creatinine Ratio 17.3 Glucose 258 H Calcium 9.6 Troponin T High Sens 23 H Troponin T Hi Sens 2 Hr 17 H Urine Color Yellow Urine Clarity Clear Urine pH 7.0 Ur Specific [place] 1.010 Urine Protein Negative Urine Glucose (UA) 1000 H Urine Ketones Negative Urine Occult Blood Negative Urine Nitrite Negative Urine Bilirubin Negative Urine Urobilinogen Normal Ur Leukocyte Esterase 25 H Urine RBC 0 SEEN Urine WBC 0-5 SEEN Ur Squamous Epith Cells 0-5 SEEN Urine Bacteria 1+ Urine Mucus 0 SEEN Radiography Diagnostic Testing: Clinical Impression(s) from Imaging Studies Chest X-Ray 12/05/24 13:02 IMPRESSION: No acute cardiopulmonary abnormalities. Reading Location: [facility] Treatment and Re-Evaluation :: Patient was turned over to mt at change of shift. Since patient's second troponin is lower and delta is -6 she was discharged to home. Based on her history and physical patient had a vasovagal episode. Discharge Plan Triage Chief Complaint: Dizziness ED Provider: Shanika Galicia Dx/Rx/DC Orders Clinical Impression: Light-headedness, Nausea, Generalized muscle weakness, Vasovagal near syncope, Elevated troponin Instructions: ED Near-Fainting, Uncertain Cause Prescriptions: No Action multivitamin Tablet 1 tab [...] mcg PO DAILY amlodipine 5 mg tablet 5 mg PO DAILY Azo Cranberry 250 mg tablet,chewable 250 mg PO DAILY spironolactone 25 mg tablet 25 mg PO 1700 PRN budesonide 0.5 mg/2 mL suspension for nebulization 0.5 mg inhalation Q12H Qty: 120 11RF benzonatate 100 mg capsule 100 - 200 mg PO TID PRN (Reason: cough) gabapentin 100 MG capsule 300 mg PO QHS aspirin 81 MG tablet 81 mg PO DAILY@0800 acetaminophen 500 mg Capsule 500 mg PO Q6H PRN (Reason: Pain) Primary Care Provider: Paulo Scott Referrals: Paulo Scott MD [Primary Care Provider, Internal Medicine] - As soon as possible Activity Restrictions/Additional Instructions: Your urine was sent for culture, follow up on these results. Drink lots of fluids at home. Your evaluation in the Emergency Department did not reveal any acute reason for admission. However, I want to emphasize that you may be early in the course of a disease process or illness even if it is not present. For this reason you should follow-up within 24 hours for reevaluation with either your primary care physician or if necessary back here in the Emergency Department. You should return to the Emergency Department immediately if your symptoms worsen or new symptoms develop. Print Language: Angolan Disposition Disposition: Home, Self Care Discharge Date/Time: 12/05/24 16:27 What to do if you have Problems For any increased pain, shortness of breath, bleeding, nausea or vomiting, chestpain, or any unexpected problems, contact your Primary Care Provider. Call [facility] ([phone]) or report to the closest Emergency Room. Call 911 if necessary. 12/07/24 0012 <Electronically signed by Shanika Galicia MD> Cosigner Signature (if applicable): 12/05/24 1614 <Electronically signed by Daphney VARGAS> CC: Dr. Paulo Scott MD ~ Signed [facility] Work Phone: 1(425) 519-469509-21-2025 Radiology Diagnostic study note [facility] Imaging Services [address] [place] [place] [address] Chest PA and Lateral MR#: [id number] Acct: [id number] Name: KESHIA ROJAS Rep #: [id number] : 1950 F 74 From: Gerald Shook MD PCP: Dr. Paulo Scott MD Status: RE G ER Study:Chest PA and Lateral Date of Exam: 12/05/24 Exam# [id number] Ordering Dr: Carlos Galicia MD PROCEDURE: CHEST PA AND LATERAL 12/05/2024 REASON FOR EXAM: LIGHTHEADED TECHNIQUE: Procedure Code: RADCXR Modality: DX Procedure: CHEST PA AND LATERAL COMPARISON: Chest x-ray 12/04/2019. FINDINGS: Hardware: Monitor electrodes overlie the chest. Heart: No cardiomegaly. Mediastinum: Unremarkable. Lungs: Clear. No pleural effusion or pneumothorax. Bones: No acute bony abnormalities. RAD/Chest PA and Lateral IMPRESSION: No acute cardiopulmonary abnormalities. Reading Location: [facility] CC: Dr. Shanika Galicia MD; Dr. Paulo Scott MD ~ Legal Secretary: Signed [facility]09-16-2025 Telephone encounter Note* Telephone Encounter - Paulo Scott MD - 11/30/2024 1:33 PM EDT The following approved medication requests [...] 14 days. Authorizing Provider: PAULO SCOTT MD [facility]09-16-2025 Miscellaneous Notes* Telephone Encounter - Paulo Scott MD - 11/30/2024 1:33 PM EDT The following approved medication requests [...] 14 days. Authorizing Provider: PAULO SCOTT MD * Telephone Encounter - Shae Palencia RN - 11/29/2024 8:37 AM EDT Patient calls to check on refill request for Gabapentin. Patient reports she only has 3 days left and prescription will take atleast a week to get to her from [facility]. Patient requests a small supply to be sent to [facility] to get her through until mail away arrives. Pended both. Last OV: 09/24/2024 Next OV: 03/04/2025 Please review and adviseShae RN [facility] Telephone encounter Note * Telephone Encounter - Shae Palencia RN - 11/29/2024 8:37 AM EDT Patient calls to check on refill request for Gabapentin. Patient reports she only has 3 days left and prescription will take atleast a week to get to her from [facility]. Patient requests a small supply to be sent to [facility] to get her through until mail away arrives. Pended both. Last OV: 09/24/2024 Next OV: 03/04/2025 Please review and advisShae rick RN [facility]08-18-2025 Telephone encounter Note* Telephone Encounter - Jeanna Hoover MA - 11/01/2024 9:50 AM EDT Patient has been identified by [...] Please advise. Thank you. Jeanna Hoover MA. [facility]08-18-2025 Miscellaneous Notes* Telephone Encounter - Jeanna Hoover MA - 11/01/2024 9:50 AM EDT Patient has been identified by [...] you. Jeanna Hoover MA. [facility] Evaluation note* Diagnosis Onset Date Resolution Status Admit Date Atherosclerotic heart diseas e of [place] coronary artery without angina pectoris chronic October 15, 2024 9:58am Essential hypertension chronic kane 2024 9:58am [facility] Work Phone: 1(481) 921-590608-01-2025 Evaluation note* Diagnosis Onset Date Resolution Status Admit Date Atherosclerotic heart diseas e of [place] coronary artery without angina pectoris chronic October 152024 9:58am Essential hypertension chronic Au kane 2024 9:58am Abdominal pain chronic December 9:33am Barretts esophagus chronic Octobe r 2024 9:33am GERD (gastroesophageal reflu x disease) chronic December 17 9:33am Abnormal urinalysis acute Octob er 2024 2:42pm Adverse effects of medication acute December 27, 2024 2:42pm GI bleed acute December 27, 2024 2:42pm Leukocytosis acute December 2:42pm Acute anemia resolved December 2:42pm Hyperglycemia resolved December 2:42pm Lactic acidosis resolved December 152024 2:42pm [facility] Work Phone: 1(839) 116-631408-01-2025 [facility] [address] [place], [place] [address] OFFICE VISIT Date of Service: 10/15/24 MR#: [id number] Acct: [id number] Name: KESHIA ROJAS Rep #: [id number] : 1950 Provider: LEONEL Lr Age/Sex: 74/F Location: [facility] Status: Signed HPI HPI History of Present [...] her feet. She is still working at [employer]. She works 4-5 days a week. She does not have any chest pain. She does have SOB with exertion and rest. She does have fatigue. She does have swelling in her feet.She recently had labs done at [facility]. 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: No Is patient in pain?: No [...] Rash varicella-zoster virus glycoprotein E, recombinant (From [employer] (PF)) Adverse Reaction (Verified 10/15/24 10:09) Rash Medications ?Medication ?Instructions ?Recorded ?Confirmed ?Type gabapentin 100 mg capsule 300 mg PO QHS 01/11/1410/15 History diazepam 5 mg tablet 5 mg PO QHS PRN anxiety 12/1710/15/24 History aspirin 81 mg tablet,delayed 81 mg [...] History (Updated 10/15/24 @ 10:51 by Gina Mary PA, PA) Loss of hearing Wears glasses Wears partial dentures Post-menopausal Anxiety Thyroid disease Ambulates with cane Urinary incontinence Difficulty swallowing Gastric reflux Non-smoker History of echocardiogram History of stress test Seasonal allergies History of edema Cardiology follow-up encounter History of cataract Ganglion cyst Atherosclerotic heart disease of [place] coronary artery without angina pectoris Cholelithiasis with [...] myocardial perfusion changes considered diagnostic for associated stress-induced myocardial ischemia. 2.? The gated Cardiolite study reports [...] and Plan (1) Atherosclerotic heart disease of [place] coronary artery without angina pectoris: Status: Chronic Qualifiers: Hughes vs. transplanted heart: [place] heart Qualified Code(s): I25.10 - Atherosclerotic heart disease of [place] coronary artery without angina pectoris Comment: Mild [...] of your patient. Please don't hesitate to callif any issues arise. This note was generated [...] Code Off vis,est,level 3 Diagnoses Atherosclerosis of [place] coronary artery of [place] heart without angina pectoris I25.10 Hughes vs. transplanted heart: [place] heart Essential hypertension I10 Coding Level of Care Code Off vis,est,level 3 Diagnoses Atherosclerosis of [place] coronary artery of [place] heart without angina pectoris I25.10 Hughes vs. transplanted heart: [place] heart Essential hypertension I10 Clinical Quality Measures Falls Risk Screening/Assistive Devices Have you fallen in the past year?: No Cardiac Ejection fraction %: 65 10/15/24 1056 Florence CASTANEDA> Date _ Gina CASTANEDA Cosigner Signature: Date (if applicable) CC: ~ [facility]08-01-2025 Progress note Author Gina Mary [facility] Services Note Date/Time October 15, 2024 10: 56am [facility] [address] [place] [address] OFFICE VISIT Date of Service: 10/15/24 MR#: [id number] Acct: [id number] Name: KESHIA ROJAS Rep #: [id number] : 1950 Provider: LEONEL Lr Age/Sex: 74/F Location[place] [facility] Status: Signed HPI HPI History of Present [...] her feet. She is still working at [employer]. She works 4-5 days a week. She does not have any chest pain. She does have SOB with exertion and rest. She does have fatigue. She does have swelling in her feet. She recently had labs done at [facility]. 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: No Is patient in pain?: No [...] Rash varicella-zoster virus glycoprotein E, recombinant (From [employer] HAIYU[employer] (PF)) Adverse Reaction (Verified 10/15/24 10:09) Rash Medications ?Medication ?Instructions ?Recorded ?Confirmed ?Type gabapentin 100 mg capsule 300 mg PO QHS 01/11/1410/15 History diazepam 5 mg tablet 5 mg PO QHS PRN anxiety 12/1710/15/24 History aspirin 81 mg tablet,delayed 81 mg [...] History (Updated 10/15/24 @ 10:51 by Gina Mary PA, PA) Loss of hearing Wears glasses Wears partial dentures Post-menopausal Anxiety Thyroid disease Ambulates with cane Urinary incontinence Difficulty swallowing Gastric reflux Non-smoker History of echocardiogram History of stress test Seasonal allergies History of edema Cardiology follow-up encounter History of cataract Ganglion cyst Atherosclerotic heart disease of [place] coronary artery without angina pectoris Cholelithiasis with [...] and Plan (1) Atherosclerotic heart disease of [place] coronary artery without angina pectoris: Status: Chronic Qualifiers: Hughes vs. transplanted heart: [place] heart Qualified Code(s): I25.10 -Atherosclerotic heart disease of [place] coronary artery without angina pectoris Comment: Mild [...] Code Off vis,est,level 3 Diagnoses Atherosclerosis of [place] coronary artery of [place] heart without angina pectoris I25.10 Hughes vs. transplanted heart: [place] heart Essential hypertension I10 Coding Level of Care Code Off vis,est,level 3 Diagnoses Atherosclerosis of [place] coronary artery of [place] heart without angina pectoris I25.10 Hughes vs. transplanted heart: [place] heart Essential hypertension I10 Clinical Quality Measures Falls Risk Screening/Assistive Devices Have you fallen in the past year?: No Cardiac Ejection fraction %: 65 10/15/24 1056 <Electronically signed by Gina Reynoso> Date _ Gina CASTANEDA Cosigner Signature: Date (if applicable) CC: ~ [facility] Work Phone: 1(517) 864-765307-16-2025 NotePatient Outreach (INTMMN) KESHIA ROJAS ([id number]) 1950 F Date Time Provider Department 09/29/24 PAULO SCOTT INTMMN During your visit today, [...] BETADINE (POVIDONE-IODINE) 11/04/2006 2 - Rash CETACAINE ([id number]*09/11/2012 14 - Other: See Comments Comments: excessive [...] mandibular pain, lymphadenopathy, possible angio edema per [facility] ER note 04/24/2022 MECLIZINE 03/07/2006 7 [...] Date Reviewed: 09/24/2024 Reviewed by: Norman Garcia APRN.POCKET CREASER - Fully Assessed Visit Diagnosis:Diet-controlled diabetes mellitus (HCC) [E11.9] Order(s):ALBUMIN/CREATININE RATIO, URINE [SQUACR] Order #: [id number] FUTURE Prescriptions as of 10/04/2024 - levothyroxine [...] 06/30/2011 IRRITABLE COLON [K58.9 (more content not included)...[facility] 09-24-2024 NoteHNO ID: [id number] Author: NORMAN GARCIA APRN.POCKET CREASER Service: ? Author Type: Nurse Practitioner Type: [...] soreness. She is scheduled to see a energy risk management analyst on November 12 for further evaluation. Keshia has been experiencing difficulties with her mail-order thyroid medication, noting delays in delivery. 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 Recording using Roundrate software for draft documentation of the visit was discussed with the patient/authorized fuels sales representative; all questions welcomed and answered. Patient/authorized fuels sales representative agreed to proceed Her medications were [...] hours. Unit dose pack. dr Brown pulmonology. spironolactone (ALDACTONE) 25 mg tablet Take [...] mandibular pain, lymphadenopathy, possible angio edema per [facility] ER note 04/24/2022 Meclizine Swelling URINARY RETENTION,FACE FELT FUNNY Metoprol (more content not included)...[facility]07-11-2025 History of Present illness Narrative* Norman Garcia APRN.POCKET CREASER - 09/24/2024 10:52 AM EDT SUBJECTIVE Keshia [...] soreness. She is scheduled to see a energy risk management analyst on November 12 for further evaluation. Keshia has been experiencing difficulties with her mail-order thyroid medication, noting delays in delivery. 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 Recording using Roundrate software for draft documentation of the visit was discussed with the patient/authorized fuels sales representative; all questions welcomed and answered. 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 Free T3 2.6. Plan: - Synthroid 50 mcg po at home . 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 Davon Infante ([facility]) Cough - 07/11/2019 Comment: Reviewed that had stress test and was referred to health policy analyst for further evaluation of cough. Bilateral Leg [...] Esophagus Without Dysplasia Comment: 11/02/12 EGD at [facility] (Dr. Charlton) Dysphagia - 02/05/2012 Obesity [...] appointment.. Norman Garcia APRN-DARYL [facility] Tele[facility] encounter Note * Telephone Encounter - Reshma Carson LPN - 08/31/2024 3:54 PM EDT PATIENT NOTIFIED OF SAME. [facility]06-17-[facility] Miscellaneous Notes* Telephone Encounter - Reshma [...] can be sent to her local [facility] and the rest to her mail order pharmacy. Please call today with how provider will send the Rx's. [phone] Patient has been identified by name and [...] Thank you. Shalonda Haro. documented in [facility]The [facility]06-[facility] Telephone encounter Note * Telephone Encounter - Norman Garcia APRN.CNP - 08/31/2024 12:34 PM EDT Please let her know it has been sent. [facility]06-17-2025 Telephone encounter Note* Telephone Encounter - Shalonda Haro - 08/31/2024 10:35 AM EDT Patient is almost out and is asking if several pills can be sent to her local [facility] and the rest to her mail order pharmacy. Please call today with how provider will send the Rx's. [phone] Patient has been identified by name and [...] 09/24/2024 Please advise. Thank you. Shalonda Haro. [facility]06-16-[facility] Telephone encounter Note* Telephone Encounter - Maribel Brown RN - 08/30/2024 9:10 AM EDT Contacted [facility] and verified that pt has picked up script on 08/26/24 for 30 tablets ofValium. No further action needed regarding valium medication at this time. Will close this encounter. Maribel Brown RN [facility]-16[facility] Miscellaneous Notes* Telephone Encounter - Maribel Brown RN - 08/30/2024 9:10 AM EDT Contacted [facility] and verified that pt has picked [...] you. Arleen Hamm LPN. documented in [facility]The [facility]06-[facility] Telephone encounter Note * Telephone Encounter [...] RX sent or if current RX okay. [facility]06-13-2025 Telephone encounter Note* Telephone Encounter - [...] update, per her request. Maribel Brown RN [facility]06-12-2025 Telephone encounter Note* Telephone Encounter - [...] 21, 2024. Authorizing Provider: PAULO SCOTT MD [facility]06-12-2025 Telephone encounter Note* Telephone Encounter - [...] advise. Thank you. Arleen Hamm LPN. T [facility]06-11-2025 Telephone encounter Note* Telephone Encounter - [...] of the valium monthly. Shae Palencia RN\ [facility]06-11-2025 Miscellaneous Notes* Telephone Encounter - Shae [...] monthly. Shae Palencia RN\ documented in [facility]The [facility]06-[facility]25 Discharge summary [facility] Medical Records Department [address] [place] [address] Emergency Department Summary 08/22/24 MR#: [id number] Acct: [id number] Name: KESHIA ROJAS Rep #:[id number] : [...] is on no anticoagulants just baby aspirin. [facility] Medical History Loss of hearing Wears glasses Wears partial dentures Post-menopausal Anxiety Thyroid disease Ambulates with cane Urinary incontinence Difficulty swallowing Gastric reflux Non-smoker History of echocardiogram History of stress test Seasonal allergies Hoarseness Leg cramps History of edema Shortness of breath on exertion Cardiology follow-up encounter History of cataract Ganglion cyst Atherosclerotic heart disease of [place] coronary artery without angina pectoris Cholelithiasis with [...] and drink plenty of water. Print Language: Angolan Disposition Disposition: Home, Self Care What to do if you have Problems For any increased pain, shortness of breath, bleeding, nausea or vomiting, chestpain, or any unexpected problems, contact your Primary Care Provider. Call [facility] ([phone]) or report tothe closest Emergency Room. Call 911 if necessary. 08/22/24 1608 Cosigner Signature (if applicable): CC: Dr. Crystal Paz MD; Dr. Paulo Scott MD ~ Signed [facility]06-08-2025 Discharge summary Author Deepak Mendez [facility] Note Date/Time August 22, 2024 4:08p [facility] Medical Records Department [address] [place] [address] Emergency Department Summary 08/22/24 MR#: [id number] Acct: [id number] Name: KESHIA ROJAS Rep #:[id number] : [...] is on no anticoagulants just baby aspirin. [facility] Medical History Loss of hearing Wears glasses Wears partial dentures Post-menopausal Anxiety Thyroid disease Ambulates with cane Urinary incontinence Difficulty swallowing Gastric reflux Non-smoker History of echocardiogram History of stress test Seasonal allergies Hoarseness Leg cramps History of edema Shortness of breath on exertion Cardiology follow-up encounter History of cataract Ganglion cyst Atherosclerotic heart disease of [place] coronary artery without angina pectoris Cholelithiasis with [...] and drink plenty of water. Print Language: Angolan Disposition Disposition: Home, Self Care What to do if you have Problems For any increased pain, shortness of breath, bleeding, nausea or vomiting, chestpain, or any unexpected problems, contact your Primary Care Provider. Call [facility] ([phone]) or report to the closest Emergency Room. Call 911 if necessary. 08/22/24 1608 <Electronically signed by Deepak Mendez MD> Cosigner Signature (if applicable): CC: Dr. Crystal Paz MD; Dr. Paulo Scott MD ~ Signed [facility] Work Phone: [phone] Hospital Discharge instructions Additional Instructions Increase your MiraLAX while taking the prescription pain medication 2-3 capfuls twice daily and drink plenty of water.[facility] Work Phone: 1(876) 775-799304-04-2025 Evaluation note* Diagnosis Onset Date Resolution Status Admit Date Trochanteric bursitis, left hip acut e June 18, 2024 10:57am Abdominal pain chronic June 18, 2024 12:59pm Barretts esophagus chronic June 18, 2024 12:59pm [facility] Work Phone: [phone] 420-444904-04-2025 Evaluation note* Diagnosis Onset Date Resolution Status Admit Date Trochanteric bursitis, left hip acut e June 18, 2024 10:57am Abdominal pain chronic June 18, 2024 12:59pm Barretts esophagus chronic June 18, 2024 12:59pm Atherosclerotic heart diseas e of [place] coronary artery without angina pectoris chronic October 15, 2024 9:58am Essential hypertension chronic 2024 9:58am [facility] Work Phone: [phone]) 696-631203-12-2025 Radiology Diagnostic study note [facility] Imaging Services [address] [place], [place] [id number] Shoulder min 2 Views MR#: [id number] Acct: [id number] Name: KESHIA ROJAS Rep #: [id number] : 1950 F 74 From: Salo Singer MD PCP: Dr. Paulo Scott MD Status: RE G CLI Study:Shoulder min 2 Views Date of Exam: 05/26/24 Exam# [id number] Ordering Dr: Agus Paz MD PROCEDURE: SHOULDER [...] tuberosity of theproximal left humerus. Reading Location: [facility] CC: Dr. Crystal Paz MD; Dr. Paulo Scott MD ~ Legal Secretary: Signed [facility]03-07-2025 History of Present illness Narrative* Juan Rodriguez, MANAGER CAR.COLLECTIONS REP - 05/21/2024 1:20 PM EST SUBJECTIVE: Shingrix [...] notes getting injections left knee Dr. [facility]. Notes chronic left should pain was [...] with Dr. Casper. No recent EGD is reported.No upcoming [...] and oriented to person, place, and time. Veterinarian Poultry present, NIMO. 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 Charlton) Cataracts, both eyes Coronary atherosclerosis of unspecified type of vessel, [place] or graft minimal plaque on cath 08/06/2006 DVT (deep venous thrombosis) ([facility]) 2010 Right leg OCTOBER 2009 NOT TREATED Dysmetabolic syndrome X Esophageal reflux Fibromyalgia better with Lyrica Floppy eyelid syndrome Hiatal hernia Large when seen on EGD 10/2010 at [facility] (Dr. Chavarria) Irritable bowel syndrome Obesity [...] Lymph 1.00 - 4.00 k/uL 2.95 2.67 [place]% % 10.2 8.2 Abs [place] <0.87 k/uL 0.93 (H) 0.70 Eosin% % [...] 719.46, 338.29, ICD10: M25.562, G89.29 Following with [facility], getting injections in the knee joint [...] YR, HIGH DOSE, TRIVALENT (FLUZONE HIGH-DOSE) - [employer] COVID-19 VACCINE AGE 12+ YR (COMIRNATY) Juan Rodriguez APRN.CNS Medical Decision Making: Problems: Moderate: 2+ stable chronic illnesses Data: Unique test result(s) reviewed: 3+ Risk: Moderate: Drug management Medical Decision Making Level: 4 - Moderate documented in [facility] encounterThe [facility]03-07-2025 NoteHNO ID: [id number] Author: JUAN RODRIGUEZ APRN.CNS Service: ? Author [...] and oriented to person, place, and time. Veterinarian Poultry present, NIMO. ALLERGIES Allergen Reactions Adhesive Rash [...] mandibular pain, lymphadenopathy, possible angio edema per [facility] ER note 04/24/2022 Meclizine Swelling URINARY RETENTION,FACE FELT FUNNY Metoprolol GI Upset headache.itching.hives. Myrbetriq [Mirabegr* Other: See Comments elevated BP Prevacid [Lansopraz* GI Upset GAS,BURPING HEADACHE Prilosec [Omeprazol* Diarrhea Tape [Adhesive Tape* Rash Paper (more content not included)...[facility]12-20-2024 History of Present illness Narrative* Geoffrey Bond [...] PATIENT PRESENTS WITH AN IMPLANTABLE OR ATTACHED LOCUM TENENS PSYCHIATRIST: No RADIOLOGY DEPARTMENT: Mammography PERIPHERAL IV DATA: Not applicable SIGNED BY: Tova Valenzuela March 05, 2024 1:40 PM documented in this encounterThe [facility]12-20-2024 NoteHNO ID: [id number] Author: GEOFFREY BOND Mammo Tech Service: ? Author Type: Web Marketing Assistant Type: Progress Notes Filed: 03/05/2024 13:40 Note [...] PATIENT PRESENTS WITH AN IMPLANTABLE OR ATTACHED LOCUM TENENS PSYCHIATRIST: No RADIOLOGY DEPARTMENT: Mammography PERIPHERAL IV DATA: Not applicable SIGNED BY: Tova Valenzuela March 05, 2024 1:40 [facility]12-12-2024 Telephone encounter Note* Telephone Encounter - Paulo [...] 25, 2024. Authorizing Provider: PAULO SCOTT MD [facility]12-12-2024 Miscellaneous Notes* Telephone Encounter - Paulo [...] 23, 2024 3:05 PM documented in this encounterThe [facility]12-09-2024 Telephone encounter Note * Telephone Encounter [...] Jim LPN February 23, 2024 3:05 PM [facility]12-06-2024 Evaluation note* Diagnosis Onset Date Resolution Status Admit Date Diarrhea acute February 20, 2024 1:02pm Abdominal pain chronic February 192023 1:02pm Barretts esophagus chronic Decemb er 2023 1:02pm Right knee DJD acute February 152023 10:26am Right knee DJD acute April 022024 8:59am Right knee DJD acute April 092024 10:36am Right knee DJD acute April 162024 9:19am [facility] Work Phone: [phone] Telephone encounter Note* Telephone Encounter - Nicole Herrera LPN - 02/20/2024 11:20 AM EST Patient calling has not received her mail away pharmacy has not processed her Gabapentin rx as yet.She is out of the 7 day rx sent locally, now needs another rx sent locally. [facility] and get it sent to her. Pending rx to go to [facility]. Please advise The patient has been identified [...] Herrera LPN February 20, 2024 11:26 AM [facility]12-06-2024 Miscellaneous Notes* Telephone Encounter - Nicole Herrera LPN - 02/20/2024 11:20 AM EST Patient calling has not received her mail away pharmacy has not processed her Gabapentin rx as yet.She is out of the 7 day rx sent locally, now needs another rx sent locally. [facility] and get it sent to her. Pending rx to go to [place]. Please advise The patient has been identified [...] 20, 2024 11:26 AM documented in this encounterThe [facility] Hospital11-27-2024 Telephone encounter Note * Telephone Encounter - Erika Polk LPN - 02/11/2024 1:44 PM EST Left a message that medication has been sent to the pharmacy. Erika Polk LPN [facility]11-27-2024 Miscellaneous Notes* Telephone Encounter - Erika [...] her [facility]. Reports she is out of medication and asking pcp to send short supplyto [facility]. Pended. documented in this encounterThe [facility] Hospital11-27-2024 Telephone encounter Note * Telephone Encounter - Paulo Scott MD - 02/11/2024 1:17 PM EST The following approved medication requests have been transmitted electronically. Requested Prescriptions Signed Prescriptions Disp Refills gabapentin (NEURONTIN) 100 mg capsule 21 capsule 0 Sig: Take 3 capsules by mouth daily at bedtime for 180 days. Authorizing Provider: PAULO SCOTT MD [facility]11-27-2024 Telephone encounter Note* Telephone Encounter - Marisel Randall RN - 02/11/2024 10:26 AM EST Patient reports she has not received her gabapentin refill from mail order and [facility] tells hershe will receive it in 7 days. Reports she is out of medication and asking pcp to send short supplyto [facility]. Pended. 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 Free T3 2.6. Plan: - Synthroid 50 mcg po at home . 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 Davon Infante ([facility]) Cough - 07/11/2019 Comment: Reviewed that had stress test and was referred to health policy analyst for further evaluation of cough. Bilateral Leg [...] Esophagus Without Dysplasia Comment: 11/02/12 EGD at [facility] (Dr. Charlton) Dysphagia - 02/05/2012 Obesity [...] appointment.. Norman Garcia APRN-DARYL documented in [facility] encounterThe [facility]08-[facility] Telephone encounter Note * Telephone Encounter [...] Salena Rowan November 11, 2023 10:20 AM [facility]08-27-2024 Miscellaneous Notes* Telephone Encounter - Salena [...] 11, 2023 10:20 AM documented in this encounterThe [facility]08-02-2024 History of Present illness Narrative* Juan Rodriguez, GIDEON.COLLECTIONS REP - 10/17/2023 10:20 AM EDT SUBJECTIVE: Depression [...] has been taking lactulose per Dr. Casper coal pulverizing operator. She notes limited fluid intake yesterday due [...] and oriented to person, place, and time. Veterinarian Poultry present, NIMO. ALLERGIES Allergen Reactions Adhesive Rash [...] mandibular pain, lymphadenopathy, possible angio edema per [facility] ER note 04/24/2022 Meclizine Swelling URINARY [...] esophagus without dysplasia Comment: 11/02/12 EGD at [facility] (Dr. Charlton) No date: Cataracts, both eyes No date: Coronary atherosclerosis of unspecified type of vessel, [place] or graft Comment: minimal plaque on cath 08/06/2006 2010: DVT (deep venous thrombosis) ([facility]) Comment: Right leg OCTOBER 2009 NOT TREATED No date: Dysmetabolic syndrome X No date: Esophageal reflux No date: Fibromyalgia Comment: better with Lyrica No date: Floppy eyelid syndrome No date: Hiatal hernia Comment: Large when seen on EGD 10/2010 at [facility] (Dr. Chavarria) No date: Irritable bowel [...] Abs Lymph 1.00 - 4.00 k/uL 2.95 [place]% % 10.2 Abs [place] <0.87 k/uL 0.93 (H) Eosin% % 8.0 [...] TOPICAL CREAM WITH PERINEAL APPLICATOR Juan Rodriguez APRN.SANDRA Medical Decision Making: Problems: Low: Acute, uncomplicated illness or injury Risk: Moderate: Drug management Medical Decision Making Level: 3 - Low documented in this encounterThe [facility]08-02-2024 Telephone encounter Note * Telephone Encounter - [...] today 10-17-23 with provider/team. Erika Polk LPN [facility]08-[facility] Miscellaneous Notes* Telephone Encounter - Erika [...] provider/team. Erika Polk LPN documented in this encounterThe Christ [facility] Telephone encounter Note * Telephone Encounter [...] 24, 2023. Authorizing Provider: PAULO SCOTT MD [facility]07-08-2024 Miscellaneous Notes* Telephone Encounter - Paulo [...] 09/17/23 and rx for diazepam when to [facility] instead of [facility]. Pt is asking if rx can be sent to [facility] instead. Jessica Saini LPN documented [facility]The [facility]07-[facility]24 Telephone encounter Note * Telephone Encounter - Jessica Saini LPN - 09/22/2023 9:33 AM EDT Pt calls to report that she had OV 09/17/23 and rx for diazepam when to [facility] instead of [facility]. Pt is asking if rx can be sent to [facility] instead. Jessica Siani LPN [facility]07-03-2024 History of Present illness Narrative* Paulo Scott MD - 09/17/2023 2:14 PM EDT This note was created using Froontriter. 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 Charlton) Cataracts, both eyes Coronary atherosclerosis of unspecified type of vessel, [place] or graft minimal plaque on cath 08/06/2006 DVT (deep venous thrombosis) (HCC) 2010 Right leg OCTOBER 2009 NOT TREATED Dysmetabolic syndrome X Esophageal reflux Fibromyalgia better with Lyrica Floppy eyelid syndrome Hiatal hernia Large when seen on EGD 10/2010 at [facility] (Dr. Chavarria) Irritable bowel syndrome Obesity [...] Lymph 1.00 - 4.00 k/uL 2.95 2.67 [place]% % 10.2 8.2 Abs [place] <0.87 k/uL 0.93 (H) 0.70 Eosin% % [...] To follow up with Dr. Reilly fowler [facility]. To get a brace 4. Vertigo R42 [...] lipids. Paulo Scott MD [facility]The [facility]06-[facility] Telephone encounter Note * Telephone Encounter [...] by mouth once daily. Paulo Scott MD [facility]06-06-2024 Miscellaneous Notes* Telephone Encounter - Paulo [...] Paulo Scott MD * Telephone Encounter - Schulter Zuleika Rowan - 08/21/2023 10:12 AM EDT [...] Thank you. Zuleika Rowan. documented in this encounterThe [facility]06-[facility]24 Telephone encounter Note * Telephone Encounter - Schulter Zuleika Rowan - 08/21/2023 10:12 AM EDT [...] 09/17/2023 Please advise. Thank you. Zuleika Rowan. [facility]05-07-2024 Instructions* Patient Instructions* Whit Demarco PA [...] week if symptoms persist. documented in this encounterThe [facility] Hospital05-07-[facility]24 History of Present illness Narrative* Jodi [...] PATIENT PRESENTS WITH AN IMPLANTABLE OR ATTACHED LOCUM TENENS PSYCHIATRIST: No RADIOLOGY DEPARTMENT: General X-ray: Exam(s) Completed: Lower Extremity X- Ray(s): Knee, AP / Lat / Tunne / Merchant Bilateral and Wt. 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 Charlton) Cataracts, both eyes Coronary atherosclerosis of unspecified type of vessel, [place] or graft minimal plaque on cath 08/06/2006 DVT (deep venous thrombosis) ([facility]) 2010 Right leg OCTOBER 2009 NOT TREATED Dysmetabolic syndrome X Esophageal reflux Fibromyalgia better with Lyrica Floppy eyelid syndrome Hiatal hernia Large when seen on EGD 10/2010 at [facility] (Dr. Chavarria) Irritable bowel syndrome Obesity [...] [Aspirin-Dipyridamole], Bactrim [Sulfamethoxazole- Trimethoprim], Betadine [Povidone-Iodine], Cetacaine [Wrtcfhnt-Qlqcmxbari-Qcvznlfekr], Cigarette Smoke, Codeine, Cortisone, Depo- Medrol [Methylprednisolone], [...] ER evaluation. LEONEL Cerda documented in this encounterThe [facility] Hospital04-22-2024 Telephone encounter Note * Telephone Encounter - Jeanna Hoover MA - 07/07/2023 8:43 AM EDT Fax received for PA approval Jeanna Hoover MA [facility]04-22-2024 Miscellaneous Notes* Telephone Encounter - Jeanna Hoover MA - 07/07/2023 8:43 AM EDT Fax received for PA approval Jeanna Hoover MA * Telephone Encounter - Ama Vang LPN - 07/04/2023 12:09 PM EDT Electronic PA rec'd and completed for lidocaine 5% patches. documented in this encounterThe Christ Hospital04-19-2024 Telephone encounter Note * Telephone Encounter - Ama Vang LPN - 07/04/2023 12:09 PM EDT Electronic PA rec'd and completed for lidocaine 5% patches. [facility]04-19-2024 Instructions* Patient Instructions* Norman Garcia APRN.POCKET CREASER - 07/04/2023 11:14 AM EDT Keep follow up but return sooner if pain persistent/not improving. Follow up with pain management. Can do heat or ice to the area. Rest as able. Start the medrol dose pack to help reduce inflammation. You can also take the muscle relaxer as needed. Can try lidocaine patches too. documented in this encounterThe Christ Hospital04-19-2024 History of Present illness Narrative* Norman [...] a fall. She was seen in the [facility] ER 06/18. 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 Free T3 2.6. Plan: - Synthroid 50 mcg po at home . 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 Davon Infante ([facility]) Cough - 07/11/2019 Comment: Reviewed that had stress test and was referred to health policy analyst for further evaluation of cough. Bilateral Leg [...] Esophagus Without Dysplasia Comment: 11/02/12 EGD at [facility] (Dr. Charlton) Dysphagia - 02/05/2012 Obesity [...] medications.. Norman Garcia APRN-DARYL documented in this encounterThe Christ Hospital04-19-2024 Miscellaneous Notes* Telephone Encounter - Maribel Brown RN - 07/04/2023 8:48 AM EDT Appointment rescheduled for today with different provider. Maribel Brown RN documented in this encounterThe [facility] Hospital02-13-2024 Miscellaneous Notes* Telephone Encounter - Arleen Hamm LPN - 04/29/2023 10:50 AM EST TC to Keshia, advised that Diazepam (Valium) RX was sent to [facility], 04/27/2023. Patient will check with pharmacy. Arleen Hamm LPN documented in this encounterThe Christ Hospital02-07-2024 Procedure [facility]02-07-2024 Procedure [facility]02-07-2024 Procedure [facility]02-07-2024 Procedure [facility]12-11-2023 Miscellaneous Notes* Telephone Encounter - Rea [...] message. Jessica Saini LPN documented in this encounterThe Christ Hospital12-08-2023 Miscellaneous Notes* Addendum Note - Juan Rodriguez APRN.CNS - 02/21/2023 2:55 PM ESTAddended by: JUAN RODRIGUEZ on: 02/21/2023 02:55 PM Modules accepted: Orders documented in this encounterThe Christ Hospital12-08-2023 History of Present illness Narrative* Juan Rodriguez APRN.CNS - 02/21/2023 2:00 PM EST SUBJECTIVE: RSV Vaccine(1 - 1-dose 60+ series) Never done DTaP,Tdap,Td Vaccine(1 - Tdap) due on 11/19/2019 Influenza Vaccine(1) due on 11/15/2022 Covid-19 Vaccine(3 - 2022-24 season) due on 11/15/2022 HPI Keshia Rojas [...] health. She was seen by Dr. Casper coal pulverizing operator September and October 2022 for abdominal pain and Sarmiento'sesophagus. Has follow up visit this month. She was seen by [place] [facility] Ellen Estrella CMP January 31, 2023 for follow-up . Will complete a Holter for dizziness. She has cataract surgery 2022. Dr Aquino doing surgery. She notes leg pain and swelling at work. Wearing compression socks and taking gabapentin which are helping somewhat. She notes seeing Dr. 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 Charlton) Cataracts, both eyes Coronary atherosclerosis of unspecified type of vessel, [place] or graft minimal plaque on cath 08/06/2006 DVT (deep venous thrombosis) ([facility]) 2010 Right leg OCTOBER 2009 NOT TREATED Dysmetabolic syndrome X Esophageal reflux Fibromyalgia better with Lyrica Floppy eyelid syndrome Hiatal hernia Large when seen on EGD 10/2010 at [facility] (Dr. Chavarria) Irritable bowel syndrome Obesity [...] Abs Lymph 1.00 - 4.00 k/uL 2.95 [place]% % 10.2 Abs [place] <0.87 k/uL 0.93 (H) Eosin% % 8.0 [...] YR, HIGH DOSE, QUADRIVALENT (FLUZONE HIGH-DOSE) - [employer] COVID-19 VACCINE (2022- SEASON) AGE 12+ YR 6 mo follow up MD Juan Lerma, MANAGER CAR.COLLECTIONS REP 3. Encounter for immunization - ICD9: V03.89, ICD10: Z23 - TDAP VACCINE, AGE 7+ YR (ADACEL, BOOSTRIX) 4. History of total adrenalectomy (HCC) - ICD9: V45.79, ICD10: E89.6 Stable, currently controlled, continue to monitor. Juan Rodriguez APRN.SANDRA Medical Decision Making: Problems: Moderate: 2+ stable chronic illnesses Data: Unique test(s) ordered: 3+ Risk: Moderate: Drug management Medical Decision Making Level: 4 - Moderate documented in this encounterThe Christ Hospital11-29-2023 Miscellaneous Notes* Telephone Encounter - Paulo [...] - 02/12/2023 9:58 AM EST Patient reports [facility] tells her, her gabapentin refill is stuck in [place]. Pharmacy advised patient to ask pcp to send short supply to local pharmacy, a 10 day supply. Pended for LIANA Menard, per patient request. Patient reports she is out of medication. documented in this encounterThe Christ Hospital08-28-2023 Miscellaneous Notes* Telephone Encounter - Hillary [...] we wouldbe able to get them from [facility]. I let her know we have a lot of labs in that had been ordered by Dr Casper. She states Dr Casper told her she she had an infection. documented in this encounterThe Christ Hospital08-12-2023 Miscellaneous Notes* Telephone Encounter - Pualo Scott MD - 10/26/2022 10:41 AM EDT [...] advise. Brayan Larson LPN documented in this encounterThe Christ Hospital07-06-2023 History of Present illness Narrative* Ryan [...] mandibular pain, lymphadenopathy, possible angio edema per [facility] ER note 04/24/2022 Meclizine Swelling URINARY [...] (1.5cm to 0.5cm) distributed from the right taoist to below the right lip. Tiny ulceration [...] POWDER Ryan Chicas MD documented in this encounterThe Christ Hospital07-05-2023 Miscellaneous Notes* Telephone Encounter - America [...] you. America Angel LPN documented in this encounterThe Christ Hospital07-03-2023 Miscellaneous Notes* Letter - Mammography Coordinator - 09/16/2022 8:29 AM EDT September 16, 2022 PID: [id number] Keshia Rojas [address] [place] [address] Dear Ms. Rojas, We are pleased to [...] report will be [facility] as part of your permanent medical record and are available for your continuing care. Thank you for allowing us to help in meeting your health care needs. Sincerely, Dr. Tracy Interpreting Radiologist [facility] (Normal over 40) documented in this encounterThe Christ Hospital06-30-2023 History of Present illness Narrative* Bethany [...] 13, 2022 1:02 PM documented in this encounterThe Christ Hospital06-28-2023 Miscellaneous Notes* Telephone Encounter - Erika Polk LPN - 09/11/2022 8:15 AM EDT Records show valid rx at the pharmacy. .me documented in this encounterThe Christ Hospital06-06-2023 Miscellaneous Notes* Telephone Encounter - Norman Garcia APRN.DARYL - 08/20/2022 2:22 PM EDT Script sent. * Telephone Encounter - Shae Palencia RN - 08/19/2022 11:31 AM EDT Patient calls and reports that she is not happy with [facility] services and is changing pharmacies to [facility]. Shae Palencia, RN * Telephone Encounter - Reshma Carson LPN - 08/19/2022 11:07 AM EDT Attempted to reach patient to ask as to why switch is needed with no answer and unable to leave a message. * Telephone Encounter - Madison Torres Pss - 08/19/2022 10:57 AM EDT Patient needs her Valium rx switched to [facility] in [place]. Refill date is tomorrow, 08/19/22. documented in this encounterThe Christ Hospital05-16-2023 Miscellaneous Notes* Telephone Encounter - Arleen [...] you. Arleen Hamm LPN documented in this encounterThe Christ Hospital03-11-2023 Miscellaneous Notes* Telephone Encounter - Hillary [...] Requesting a short supply to go to [facility] and 90 day supply to [facility] mail away. * Telephone Encounter - [...] was 146/90. PT also coming to the [facility] and checks bp. Patient notes that bp [...] 05/22/2022 3:29 PM EST VANNESA Alexis @ [facility] calling to let provider know patient discharged by OT today. Her BP was 144/96 P 77 prior to therapy. No re-check done. Tricia Crockett RN documented in this encounterThe Christ Hospital03-08-2023 Miscellaneous Notes* Telephone Encounter - Norman [...] advise. Reshma Carson LPN documented in this encounterThe Christ Hospital03-03-2023 History of Present illness Narrative* Paulo Scott MD - 05/17/2022 3:43 PM EST This note was created using Froontriter. Subjective Keshia Rojas is a 72 year old female. Patient presents with: Established Patient: Follow up BLE weakness and pain SUBJECTIVE: Keshia Rojas is a 72 year old year old lady here today for hospital follow up appointment for review of medical conditions. States that had pain in legs with exacerbation of swelling despite wearing support hose. [place] like someone was punching her in back of her calves. Had to have the stockings taken off since was contributing to the pain. Eyes rolled in back of her head. 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 Charlton) Cataracts, both eyes Coronary atherosclerosis of unspecified type of vessel, [place] or graft minimal plaque on cath 08/06/2006 DVT (deep venous thrombosis) ([facility]) 2010 Right leg OCTOBER 2009 NOT TREATED Dysmetabolic syndrome X Esophageal reflux Fibromyalgia better with Lyrica Floppy eyelid syndrome Hiatal hernia Large when seen on EGD 10/2010 at [facility] (Dr. Chavarria) Irritable bowel syndrome Obesity [...] sleep. Paulo Scott MD documented in this encounterThe [facility] Hospital02-23-2023 Miscellaneous Notes* Telephone Encounter - Adalgisa Alston LPN - 05/09/2022 1:31 PM EST Attempted to contact Vanesa [phone] but no answer. Left providers message and [...] - 05/09/2022 10:09 AM EST Vanesa with [facility], OT calling with the followin)plan of [...] and pain. 3)Requesting verbal order for social worker clinical to come in for emotional support.If calling with verbalorder approval -today please call Vanesa [phone] okay to leave a message -calling with verbal order tomorrow call Shelia [phone] okay to leave a message. Erika Polk LPN documented in this encounterThe Christ Hospital02-21-2023 Miscellaneous Notes* Telephone Encounter - Juan Rodriguez APRN.CNS - 05/07/2022 4:43 PM EST Noted, [place] * Telephone Encounter - Erika Polk LPN - 05/07/2022 4:22 PM EST Norma with [facility], PT called with a plan of care for pt. They will be seenign pt 2 times a week for 3 weeks for lower extremities strengthening, gait and training, balance and endurance. No call back needed Erika Polk LPN documented in this encounterThe Christ Hospital02-20-[address] Campos [facility] May 06, 2022 12:05pm Note Date/Time May 06, 2022 12:03pm [facility] Medical Records Department [address] [place] [address] Discharge Summary 05/06/22 1156 MR#: [id number] Acct: [id number] Name: KESHIA ROJAS Rep #:[id number] : 1950 72 From: Shelia Campos DO PCP: Dr. Paulo Scott MD Status:HOLLIS TRAMMELL Location: [facility] [place] CG601-8 Providers Date of Admission: 05/05/22 Date of [...] by a customer and her boss to [facility] and came to the hospital. She has [...] % (Auto) 65.4, Lymph % (Auto) 21.7, [place] % (Auto) 6.9, Eos % (Auto) 4.8, [...] Clarity Clear, Urine pH 6.0, Ur Specific [place] 1.010, Urine Protein Negative, Urine Glucose (UA) [...] 37.9 L, Lymph % (Auto) 42.9 H, [place] % (Auto) 9.0, Eos % (Auto) 9.0 [...] Health Service Charges/Coding Visit Charges Inpatient E&M: 47803 Disch Hosp 05/06/22 1205 <Electronically signed by Shelia Camops DO> Cosigner Signature (if applicable): CC: Dr. Shelia Campos DO; Dr. Paulo Scott MD~ Signed [facility] Work Phone: 1(561) 372-179002-19-2023 History and physical note Author Dr. Bernabe [facility] May 05, 2022 9:18pm Note Date/Time May 05, 2022 5:50pm [facility] Medical Records Department [address] [place] [address] H&P Exam - Hospitalist 05/05/22 1750 MR#: [id number] Acct: [id number] Name: KEHSIA ROJAS Rep #:[id number] : 1950 72 From: Yuridia Bernabe MD PCP: Dr. Paulo Scott MD Status:[facility] Location: [facility] [place] [place] VT345-0 HPI - General General Date of Admission: [...] History Anemia Arthritis Atherosclerotic heart disease of [place] coronary artery without angina pectoris Barretts esophagus [...] % (Auto) 65.4, Lymph % (Auto) 21.7, [place] % (Auto) 6.9, Eos % (Auto) 4.8, [...] Clarity Clear, Urine pH 6.0, Ur Specific [place] 1.010, Urine Protein Negative, Urine Glucose (UA) [...] at the bedside. Visit Charges Inpatient E&M: 07385 Init Hosp L3 05/05/222117 <Electronically signed by Yuridia Bernabe MD> Cosigner Signature (if applicable): CC: Dr. Yuridia Bernabe MD; Dr. Paulo Scott MD~ Signed [facility] Work Phone: 1(548) 909-616702-19-2023 Discharge summary Author La Nena Collazo [facility] May 05, 2022 5:48pm Note Date/Time May 05, 2022 1:22pm [facility] Medical Records Department [address] [place] [address] Emergency Department Summary 05/05/22 MR#: [id number] Acct: [id number] Name: KESHIA ROJAS Rep #:[id number] : 1950 72 From: La Nena CASTANEDA PCP: Dr. Paulo Scott MD Status:RE G ER Location: ED HPI <LEONEL Rachel - Last Filed: 05/05/22 17:48> History of Present Illness Chief Complaint: Dizziness Narrative Narrative: 72-year-old female with PMH of HTN, hypothyroidism presents with bilateral lowerextremity pain and lightheadedness. She started her shift at [employer] around 8AM and felt fine. About [...] History Anemia Arthritis Atherosclerotic heart disease of [place] coronary artery without angina pectoris Barretts esophagus [...] obtaining)] 96 Pulse Ox Oxygen Delivery Method [facility] <LEONEL Rachel - Last Filed: 05/05/22 17:48> [facility] Narrative Medical decision making narrative: Patient [...] % (Auto) 65.4 Lymph % (Auto) 21.7 [place] % (Auto) 6.9 Eos % (Auto) 4.8 [...] Clarity Clear Urine pH 6.0 Ur Specific [place] 1.010 Urine Protein Negative Urine Glucose (UA) [...] (Auto) Neut % (Auto) Lymph % (Auto) [place] % (Auto) Eos % (Auto) Baso % (Auto) Absolute Neuts (auto) Absolute Lymphs (auto) Nucleated RBC % Sodium Potassium Chloride Carbon Dioxide Anion Gap BUN Creatinine Estim Creat Clear Calc Est GFR (MDRD) Af Amer Est GFR (MDRD) Non-Af BUN/Creatinine Ratio Glucose Calcium Total Creatine Kinase 186 Troponin I High Sens 4 Urine Color Urine Clarity Urine pH Ur Specific [place] Urine Protein Urine Glucose (UA) Urine Ketones [...] Ellie Mullins, - Last Filed: 05/05/22 16:15> [facility] Lab Data Attestation: I reviewed the patient's lab results. Lab results narrative: I have personally performed a face to face assessment of the patient and have reviewed the EULALIA Note. I performed a substantive portion of the visit including all aspects of the following. My sy findings include: History is [patient seen in conjunction with physician financial legal assistant. Patient presented to the emergency department [...] % (Auto) 65.4 Lymph % (Auto) 21.7 [place] % (Auto) 6.9 Eos % (Auto) 4.8 [...] Clarity Clear Urine pH 6.0 Ur Specific [place] 1.010 Urine Protein Negative Urine Glucose (UA) [...] (Auto) Neut % (Auto) Lymph % (Auto) [place] % (Auto) Eos % (Auto) Baso % (Auto) Absolute Neuts (auto) Absolute Lymphs (auto) Nucleated RBC % Sodium Potassium Chloride Carbon Dioxide Anion Gap BUN Creatinine Estim Creat Clear Calc Est GFR (MDRD) Af Amer Est GFR (MDRD) Non-Af BUN/Creatinine Ratio Glucose Calcium Total Creatine Kinase 186 Troponin I High Sens 4 Urine Color Urine Clarity Urine pH Ur Specific [place] Urine Protein Urine Glucose (UA) Urine Ketones [...] walking, Dizziness Disposition Disposition: Acute Care Hospital [facility] What to do if you have Problems For any increased pain, shortness of breath, bleeding, nausea or vomiting, chest pain, or any unexpected problems, contact your Primary Care Provider. Call [facility] ([phone]) or report to the closest Emergency Room. Call 911 if necessary. 05/05/22 1748 <Electronically signed by La Nena CASTANEDA> Cosigner Signature (if applicable): 05/05/22 1648 <Electronically signed by Ellie Mullins DO> CC: Dr. Paulo Scott MD ~ Signed [facility] Work Phone: 1(180) 921-849002-19-2023 Discharge summary Author La Nena Collazo [facility] May 05, 2022 5:48pm Note Date/Time May 05, 2022 1:22pm [facility] Medical Records Department [address] [place] [address] Emergency Department Summary 05/05/22 MR#: [id number] Acct: [id number] Name: KESHIA ROJAS Rep #:[id number] : 1950 72 From: La Nena CASTANEDA PCP: Dr. Paulo Scott MD Status:RE G ER Location: ED HPI <LEONEL Rachel - Last Filed: 05/05/22 17:48> History of Present Illness Chief Complaint: Dizziness Narrative Narrative: 72-year-old female with PMH of HTN, hypothyroidism presents with bilateral lowerextremity pain and lightheadedness. She started her shift at [employer] around 8AM and felt fine. About [...] History Anemia Arthritis Atherosclerotic heart disease of [place] coronary artery without angina pectoris Barretts esophagus [...] Verified 04/24/22 14:40 glycoprotein E, recombinant [From [employer] (PF)] Family History Mother Cancer Celiac disease [...] obtaining)] 96 Pulse Ox Oxygen Delivery Method [facility] <LEONEL Rachel - Last Filed: 05/05/22 17:48> [facility] Narrative Medical decision making narrative: Patient [...] % (Auto) 65.4 Lymph % (Auto) 21.7 [place] % (Auto) 6.9 Eos % (Auto) 4.8 [...] Clarity Clear Urine pH 6.0 Ur Specific [place] 1.010 Urine Protein Negative Urine Glucose (UA) [...] (Auto) Neut % (Auto) Lymph % (Auto) [place] % (Auto) Eos % (Auto) Baso % (Auto) Absolute Neuts (auto) Absolute Lymphs (auto) Nucleated RBC % Sodium Potassium Chloride Carbon Dioxide Anion Gap BUN Creatinine Estim Creat Clear Calc Est GFR (MDRD) Af Amer Est GFR (MDRD) Non-Af BUN/Creatinine Ratio Glucose Calcium Total Creatine Kinase 186 Troponin I High Sens 4 Urine Color Urine Clarity Urine pH Ur Specific [place] Urine Protein Urine Glucose (UA) Urine Ketones Urine Occult Blood Urine Nitrite Urine Bilirubin Urine Urobilinogen Ur Leukocyte Esterase Urine RBC Urine WBC Ur Squamous Epith Cells Urine Bacteria Urine Mucus Radiography Diagnostic Testing: Clinical Impression(s) from Imaging Studies Knee X-Ray 05/05/22 16:30 IMPRESSION: Mild degenerative changes. Electronically Signed: Martin Velasquez DO at 17:21 EST Reading Location ID and State: [facility] / [place] Tel [phone], Service support , Knee X-Ray 05/05/22 16:30 IMPRESSION: Degenerative changes. Electronically Signed: Martin Velasquez DO at 17:19 EST , ED attending interpretation of bilateral knee x-ray shows no fracture or dislocation, mild arthritis. <Dr. Ellie Mullins DO - Last Filed: 05/05/22 16:15> [facility] [facility] Lab Data Attestation: I reviewed the patient's lab results. Lab results narrative: I have personally performed a face to face assessment of the patient and have reviewed the EULALIA Note. I performed a substantive portion of the visit including all aspects of the following. My sy findings include: History is [patient seen in conjunction with physician financial legal assistant. Patient presented to the emergency department [...] fever cough or recent illness.] Exam is [HEENT-PERMARYURI, EOMI. Cranial nerves II through XII grossly [...] % (Auto) 65.4 Lymph % (Auto) 21.7 [place] % (Auto) 6.9 Eos % (Auto) 4.8 [...] Clarity Clear Urine pH 6.0 Ur Specific [place] 1.010 Urine Protein Negative Urine Glucose (UA) [...] (Auto) Neut % (Auto) Lymph % (Auto) [place] % (Auto) Eos % (Auto) Baso % (Auto) Absolute Neuts (auto) Absolute Lymphs (auto) Nucleated RBC % Sodium Potassium Chloride Carbon Dioxide Anion Gap BUN Creatinine Estim Creat Clear Calc Est GFR (MDRD) Af Amer Est GFR (MDRD) Non-Af BUN/Creatinine Ratio Glucose Calcium Total Creatine Kinase 186 Troponin I High Sens 4 Urine Color Urine Clarity Urine pH Ur Specific [place] Urine Protein Urine Glucose (UA) Urine Ketones Urine Occult Blood Urine Nitrite Urine Bilirubin Urine Urobilinogen Ur Leukocyte Esterase Urine RBC Urine WBC Ur Squamous Epith Cells Urine Bacteria Urine Mucus Radiography Diagnostic Testing: Clinical Impression(s) from Imaging Studies Knee X-Ray 05/05/22 16:30 IMPRESSION: Mild degenerative changes. Electronically Signed: Martin Velasquez DO at 17:21 EST Reading Location ID and State: [facility] / [place] Tel [phone], Service support , Knee X-Ray 05/05/22 16:30 IMPRESSION: Degenerative changes. Electronically Signed: Martin Velasquez DO at 17:19 EST Reading Location ID and State: [facility] / [place] Tel [phone], Service support , EKG Initial EKG: Attestation: I personally reviewed and interpreted this EKG as follows: Comments: Sinus rhythm with a ventricular rate of 67 bpm with no acute ST segment changes Discharge Plan Dx/Rx/DC Orders Clinical Impression: Bilateral leg pain, Difficulty in walking, Dizziness Disposition Disposition: Acute Care Hospital [facility] What to do if you have Problems For any increased pain, shortness of breath, bleeding, nausea or vomiting, chest pain, or any unexpected problems, contact your Primary Care Provider. Call [facility] ([phone]) or report to the closest Emergency Room. Call 911 if necessary. 05/05/22 1748 <Electronically signed by La Nena CASTANEDA> Cosigner Signature (if applicable): 05/05/22 1648 <Electronically signed by Ellie Mullins DO> CC: Dr. Paulo Scott MD ~ Signed [facility] Work Phone: 1(331) 238-427202-10-2023 Instructions* Patient Instructions* Juan Rodriguez APRN.CNS - 04/26/2022 9:57 AM EST Stop taking lisinopril Start taking amlodipine 2.5 mg daily [facility] History of Present illness Narrative* Juan [...] to emergency department. 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 Charlton) Cataracts, both eyes Coronary atherosclerosis of unspecified type of vessel, [place] or graft minimal plaque on cath 08/06/2006 DVT (deep venous thrombosis) (HCC) 2010 Right leg OCTOBER 2009 NOT TREATED Dysmetabolic syndrome X Esophageal reflux Fibromyalgia better with Lyrica Floppy eyelid syndrome Hiatal hernia Large when seen on EGD 10/2010 at [facility] (Dr. Chavarria) Irritable bowel syndrome Obesity [...] Level: 4 - Moderate documented in [facility]The [facility] Alatorre [facility] April 24, 2022 8:33pm Note Date/Time April 24, 2022 4 :51pm [facility] Medical Records Department [address] [place] [address] Emergency Department Summary 04/24/22 MR#: [id number] Acct: [id number] Name: KESHIA ROJAS Rep #:[id number] : [...] does. He does not appreciate any swelling. [facility] Medical History Anemia Arthritis Atherosclerotic heart disease of [place] coronary artery without angina pectoris Barretts esophagus [...] % (Auto) 49.5 Lymph % (Auto) 34.8 [place] % (Auto) 7.7 Eos % (Auto) 6.8 [...] your Primary Care Provider. Call [facility] ([phone]) or report to the closest Emergency Room. Call 911 if necessary. 04/24/222032 <Electronically signed by Rajinder Alatorre DO> Cosigner Signature (if applicable): CC: Dr. Paulo Scott MD ~ Signed [facility] Work Phone: 1(354) 840-894702-08-2023 Miscellaneous Notes* Telephone Encounter - Norman Garcia [...] 9. OTHER SYMPTOMS: Denies Protocols used: Face [id number] documented in [facility]The [facility]12-[facility] Miscellaneous Notes* Telephone Encounter - Norman Garcia APRN.CNP - 02/25/2022 10:57 AM EST See my chart message. * Telephone Encounter - Nataly Krueger RN - 02/25/2022 9:38 AM EST Patient calling and asking about the urine culture. Patient noticed that it was abnormal. Patient pharmacy is [facility] if provider needs to send medication. Patient continues to have burning with urination. Can send response through My Chart. Please review and advise, Nataly Krueger RN documented in [facility]The [facility]12-06-2022 Miscellaneous Notes* Telephone Encounter - Norman [...] you. Arleen Hamm LPN documented in this encounterThe [facility]08-19-2022 Miscellaneous Notes* Telephone Encounter - Paulo [...] notify patient. Charo Salazar documented in this encounterThe [facility]07-21-[facility]22 Miscellaneous Notes* Telephone Encounter - Adalgisa Alston LPN - 10/04/2021 2:27 PM EDT Providers message was sent to patient on [employer] as requested. * Telephone Encounter - Juan [...] My Chart. Thank you. documented in this encounterThe [facility]06-20-2022 Miscellaneous Notes* Telephone Encounter - Jessica [...] mcg tablet Class: Normal documented in this encounterThe [facility]06-09-[facility]22 History of Present illness Narrative* Paulo Scott MD - 08/23/2021 5:22 PM EDT This note was created using NoteWriter. 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 Charlton) Cataracts, both eyes Coronary atherosclerosis of unspecified type of vessel, [place] or graft minimal plaque on cath 08/06/2006 DVT (deep venous thrombosis) (HCC) 2010 Right leg OCTOBER 2009 NOT TREATED Dysmetabolic syndrome X Esophageal reflux Fibromyalgia better with Lyrica Floppy eyelid syndrome Hiatal hernia Large when seen on EGD 10/2010 at [facility] (Dr. Chavarria) Irritable bowel syndrome Obesity [...] Take 400 Units by mouth once daily. [facility] as directed. white petrolatum 94% - mineral oil 3% 94-3 % oint Dr. Lynne [facility] acetaminophen (TYLENOL) 325 mg tablet Take 650 mg by mouth every 6 hours as needed. Tylenol arthritis COMPOUNDED PRESCRIPTION Wendel Antiseptic Powder (carbolic acid; zinc oxide) as [...] vertigo. Paulo Scott MD documented in this encounterThe [facility]10-01-[facility]21 History of Present illness Narrative* Jodi Gamino RT(R) - 12/15/2020 12:30 PM EDT [...] 15, 2020 12:22 PM documented in this encounterThe [facility]06-16-[facility]21 History of Present illness Narrative* Eleuterio [...] 30, 2020 1:41 PM documented in this encounterThe [facility]04-27-[facility]21 History of Present illness Narrative* Kalli [...] 11, 2020 1:13 PM documented in this encounterThe [facility]04-11-2012 History of Past illness Narrative* Problem Noted Date Resolved Date Discharge planning 06/26/2011 09/03/2011 Overview: 06/30/2011 Pt is and lives in [place] At this time, we anticipate that the patient will be discharged home. Patient is in SNF after suffering a stroke. Patient requests home care for a home visit. Plan: - Per social work: [facility] in [employer] can assist. SW provided contact info for this [employer] to call when pt returns home if [...] 12/28/2016 Overview: 06/30/2011 TIA x2 2005, 2008. 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 1) Laparotomy 2) Joann almita roplasty 3) Wedge the gastric fundus 4) Robbie fundoplication 06/30/2011 Overview: 06/29/2011 - No c/o reflux post op. 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 documented as of this encounter (statuses as of 08/27/2021) [facility] History of Past illness Narrative* Problem Noted Date Resolved Date Discharge planning 06/26/2011 09/03/2011 Overview: 06/30/2011 Pt is and lives in [place] At this time, we anticipate that the patient will be discharged home. Patient is in SNF after suffering a stroke. Patient requests home care for a home visit. Plan: - Per social work: Friends in [facility] can assist. SW provided contact info [...] 12/28/2016 Overview: 06/30/2011 TIA x2 2005, 2008. 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 1) Laparotomy 2) Joann almita roplasty 3) Wedge the gastric fundus 4) Robbie fundoplication 06/30/2011 Overview: 06/29/2011 - No c/o reflux post op. 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 documented as of this encounter (statuses as of 09/03/2021) [facility] of Past illness Narrative* Problem Noted Date Resolved Date Discharge planning 06/26/2011 09/03/2011 Overview: 06/30/2011 Pt is and lives in [place] At this time, we anticipate that the patient will be discharged home. Patient is in SNF after suffering a stroke. Patient requests home care for a home visit. Plan: - Per social work: Friends in [facility] can assist. SW provided contact info for this [employer] to call when pt returns home if [...] 12/28/2016 Overview: 06/30/2011 TIA x2 2005, 2008. 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 1) Laparotomy 2) Joann almita roplasty 3) Wedge the gastric fundus 4) Robbie fundoplication 06/30/2011 Overview: 06/29/2011 - No c/o reflux post op. 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 documented as of this encounter (statuses as of 10/04/2021) [facility] of Past illness Narrative* Problem Noted Date Resolved Date Discharge planning 06/26/2011 09/03/2011 Overview: 06/30/2011 Pt is and lives in [place] At this time, we anticipate that the patient will be discharged home. Patient is in SNF after suffering a stroke. Patient requests home care for a home visit. Plan: - Per social work: Friends in [facility] can assist. SW provided contact info [...] 12/28/2016 Overview: 06/30/2011 TIA x2 2005, 2008. 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 1) Laparotomy 2) Joann almita roplasty 3) Wedge the gastric fundus 4) Robbie fundoplication 06/30/2011 Overview: 06/29/2011 - No c/o reflux post op. 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 documented as of this encounter (statuses as of 10/20/2021) [facility] of [facility] Narrative* Problem Noted Date Resolved Date Discharge planning 06/26/2011 09/03/2011 Overview: 06/30/2011 Pt is and lives in [place] At this time, we anticipate that the patient will be discharged home. Patient is in SNF after suffering a stroke. Patient requests home care for a home visit. Plan: - Per social work: Friends in [facility] can assist. SW provided contact info for this [employer] to call when pt returns home if [...] 12/28/2016 Overview: 06/30/2011 TIA x2 2005, 2008. 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 1) Laparotomy 2) Joann almita roplasty 3) Wedge the gastric fundus 4) Robbie fundoplication 06/30/2011 Overview: 06/29/2011 - No c/o reflux post op. 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 documented as of this encounter (statuses as of 11/02/2021) [facility] of Past illness Narrative* Problem Noted Date Resolved Date Discharge planning 06/26/2011 09/03/2011 Overview: 06/30/2011 Pt is and lives in [place] At this time, we anticipate that the patient will be discharged home. Patient is in SNF after suffering a stroke. Patient requests home care for a home visit. Plan: - Per social work: Friends in [facility] can assist. SW provided contact info for this [employer] to call when pt returns home if [...] 12/28/2016 Overview: 06/30/2011 TIA x2 2005, 2008. 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 1) Laparotomy 2) Joann almita roplasty 3) Wedge the gastric fundus 4) Robbie fundoplication 06/30/2011 Overview: 06/29/2011 - No c/o reflux post op. 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 documented as of this encounter (statuses as of 12/07/2021) [facility] Narrative* Problem Noted Date Resolved Date Discharge planning 06/26/2011 09/03/2011 Overview: 06/30/2011 Pt is and lives in [place] At this time, we anticipate that the patient will be discharged home. Patient is in SNF after suffering a stroke. Patient requests home care for a home visit. Plan: - Per social work: Friends in [facility] can assist. SW provided contact info [...] 12/28/2016 Overview: 06/30/2011 TIA x2 2005, 2008. 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 1) Laparotomy 2) Joann almita roplasty 3) Wedge the gastric fundus 4) Robbie fundoplication 06/30/2011 Overview: 06/29/2011 - No c/o reflux post op. 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 documented as of this encounter (statuses as of 02/19/2022) [facility] Narrative* Problem Noted Date Resolved Date Discharge planning 06/26/2011 09/03/2011 Overview: 06/30/2011 Pt is and lives in [place] At this time, we anticipate that the patient will be discharged home. Patient is in SNF after suffering a stroke. Patient requests home care for a home visit. Plan: - Per social work: Friends in [facility] can assist. SW provided contact info [...] 12/28/2016 Overview: 06/30/2011 TIA x2 2005, 2008. 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 1) Laparotomy 2) Joann almita roplasty 3) Wedge the gastric fundus 4) Robbie fundoplication 06/30/2011 Overview: 06/29/2011 - No c/o reflux post op. 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 documented as of this encounter (statuses as of 02/25/2022) [facility] Narrative* Problem Noted Date Resolved Date Discharge planning 06/26/2011 09/03/2011 Overview: 06/30/2011 Pt is and lives in [place] At this time, we anticipate that the patient will be discharged home. Patient is in SNF after suffering a stroke. Patient requests home care for a home visit. Plan: - Per social work: Friends in [facility] can assist. SW provided contact info [...] 12/28/2016 Overview: 06/30/2011 TIA x2 2005, 2008. 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 1) Laparotomy 2) Joann almita roplasty 3) Wedge the gastric fundus 4) Robbie fundoplication 06/30/2011 Overview: 06/29/2011 - No c/o reflux post op. 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 documented as of this encounter (statuses as of 03/21/2022) [facility] Narrative* Problem Noted Date Resolved Date Discharge planning 06/26/2011 09/03/2011 Overview: 06/30/2011 Pt is and lives in [place] At this time, we anticipate that the patient will be discharged home. Patient is in SNF after suffering a stroke. Patient requests home care for a home visit. Plan: - Per social work: Friends in [facility] can assist. SW provided contact info [...] 12/28/2016 Overview: 06/30/2011 TIA x2 2005, 2008. 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 1) Laparotomy 2) Joann almita roplasty 3) Wedge the gastric fundus 4) Robbie fundoplication 06/30/2011 Overview: 06/29/2011 - No c/o reflux post op. 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 documented as of this encounter (statuses as of 04/25/2022) [facility] Narrative* Problem Noted Date Resolved Date Discharge planning 06/26/2011 09/03/2011 Overview: 06/30/2011 Pt is and lives [place] At this time, we anticipate that the patient will be discharged home. Patient is in SNF after suffering a stroke. Patient requests home care for a home visit. Plan: - Per social work: Friends in [facility] can assist. SW provided contact info [...] 12/28/2016 Overview: 06/30/2011 TIA x2 2005, 2008. 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 1) Laparotomy 2) Joann almita roplasty 3) Wedge the gastric fundus 4) Robbie fundoplication 06/30/2011 Overview: 06/29/2011 - No c/o reflux post op. 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 documented as of this encounter (statuses as of 04/26/2022) [facility] Narrative* Problem Noted Date Resolved Date Discharge planning 06/26/2011 09/03/2011 Overview: 06/30/2011 Pt is and lives [place] At this time, we anticipate that the patient will be discharged home. Patient is in SNF after suffering a stroke. Patient requests home care for a home visit. Plan: - Per social work: Friends in [facility] can assist. SW provided contact info [...] 12/28/2016 Overview: 06/30/2011 TIA x2 2005, 2008. 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 1) Laparotomy 2) Joann almita roplasty 3) Wedge the gastric fundus 4) Robbie fundoplication 06/30/2011 Overview: 06/29/2011 - No c/o reflux post op. 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 documented as of this encounter (statuses as of 05/08/2022) [facility] Narrative* Problem Noted Date Resolved Date Discharge planning 06/26/2011 09/03/2011 Overview: 06/30/2011 Pt is and lives in [place] At this time, we anticipate that the patient will be discharged home. Patient is in SNF after suffering a stroke. Patient requests home care for a home visit. Plan: - Per social work: Friends in [facility] can assist. SW provided contact info for this [employer] to call when pt returns home if [...] 12/28/2016 Overview: 06/30/2011 TIA x2 2005, 2008. 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 1) Laparotomy 2) Joann almiat roplasty 3) Wedge the gastric fundus 4) Robbie fundoplication 06/30/2011 Overview: 06/29/2011 - No c/o reflux post op. 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 documented as of this encounter (statuses as of 05/09/2022) [facility] Narrative* Problem Noted Date Resolved Date Discharge planning 06/26/2011 09/03/2011 Overview: 06/30/2011 Pt is and lives in [place] At this time, we anticipate that the patient will be discharged home. Patient is in SNF after suffering a stroke. Patient requests home care for a home visit. Plan: - Per social work: Friends in [facility] can assist. SW provided contact info for this [employer] to call when pt returns home if [...] 12/28/2016 Overview: 06/30/2011 TIA x2 2005, 2008. 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 1) Laparotomy 2) Joann almita roplasty 3) Wedge the gastric fundus 4) Robbie fundoplication 06/30/2011 Overview: 06/29/2011 - No c/o reflux post op. 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 documented as of this encounter (statuses as of 05/22/2022) [facility] Narrative* Problem Noted Date Resolved Date Discharge planning 06/26/2011 09/03/2011 Overview: 06/30/2011 Pt is and lives in [place] At this time, we anticipate that [...] 12/28/2016 Overview: 06/30/2011 TIA x2 2005, 2008. 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 1) Laparotomy 2) Joann almita roplasty 3) Wedge the gastric fundus 4) Robbie fundoplication 06/30/2011 Overview: 06/29/2011 - No c/o reflux post op. 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 documented as of this encounter (statuses as of 05/25/2022) [facility] Narrative* Problem Noted Date Resolved Date Discharge planning 06/26/2011 09/03/2011 Overview: 06/30/2011 Pt is and lives in [place] At this time, we anticipate that [...] 12/28/2016 Overview: 06/30/2011 TIA x2 2005, 2008. 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 1) Laparotomy 2) Joann almita roplasty 3) Wedge the gastric fundus 4) Robbie fundoplication 06/30/2011 Overview: 06/29/2011 - No c/o reflux post op. 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 documented as of this encounter (statuses as of 06/10/2022) [facility] Narrative* Problem Noted Date Resolved Date Discharge planning 06/26/2011 09/03/2011 Overview: 06/30/2011 Pt is and lives [place] At this time, we anticipate that the patient will be discharged home. Patient is in SNF after suffering a stroke. Patient requests home care for a home visit. Plan: - Per social work: Friends in [place] can assist. SW provided contact info for [employer] to call when pt returns home [...] 12/28/2016 Overview: 06/30/2011 TIA x2 2005, 2008. 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 1) Laparotomy 2) Joann almita roplasty 3) Wedge the gastric fundus 4) Robbie fundoplication 06/30/2011 Overview: 06/29/2011 - No c/o reflux post op. 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 documented as of this encounter (statuses as of 06/17/2022) [facility]04-11-2012 History of Past illness Narrative* Problem Noted Date Resolved Date Discharge planning 06/26/2011 09/03/2011 Overview: 06/30/2011 Pt is and lives in [place] At this time, we anticipate that the patient will be discharged home. Patient is in SNF after suffering a stroke. Patient requests home care for a home visit. Plan: - Per social work: Friends in [facility] can assist. SW provided contact info [...] 12/28/2016 Overview: 06/30/2011 TIA x2 2005, 2008. 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 1) Laparotomy 2) Joann almita roplasty 3) Wedge the gastric fundus 4) Robbie fundoplication 06/30/2011 Overview: 06/29/2011 - No c/o reflux post op. 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 documented as of this encounter (statuses as of 07/31/2022) [facility]04-11-2012 History of Past illness Narrative* Problem Noted Date Resolved Date Discharge planning 06/26/2011 09/03/2011 Overview: 06/30/2011 Pt is and lives in [place] At this time, we anticipate that the patient will be discharged home. Patient is in SNF after suffering a stroke. Patient requests home care for a home visit. Plan: - Per social work: Friends in [place] can assist. SW provided contact info for this [employer] to call when pt returns home if [...] 12/28/2016 Overview: 06/30/2011 TIA x2 2005, 2008. 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 1) Laparotomy 2) Joann almita roplasty 3) Wedge the gastric fundus 4) Robbie fundoplication 06/30/2011 Overview: 06/29/2011 - No c/o reflux post op. 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 documented as of this encounter (statuses as of 08/20/2022) [facility]04-[facility]2012 History of Past illness Narrative* Problem Noted Date Resolved Date Discharge planning 06/26/2011 09/03/2011 Overview: 06/30/2011 Pt is and lives in [place] At this time, we anticipate that the patient will be discharged home. Patient is in SNF after suffering a stroke. Patient requests home care for a home visit. Plan: - Per social work: [facility] in [place] can assist. SW provided contact info for [...] 12/28/2016 Overview: 06/30/2011 TIA x2 2005, 2008. 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 1) Laparotomy 2) Joann almita roplasty 3) Wedge the gastric fundus 4) Robbie fundoplication 06/30/2011 Overview: 06/29/2011 - No c/o reflux post op. 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 documented as of this encounter (statuses as of 09/11/2022) [facility] History of Past illness Narrative* Problem Noted Date Resolved Date Discharge planning 06/26/2011 09/03/2011 Overview: 06/30/2011 Pt is and lives in [place] At this time, we anticipate that the patient will be discharged home. Patient is in SNF after suffering a stroke. Patient requests home care for a home visit. Plan: - Per social work: [facility] in [facility] can assist. SW provided contact info [...] 12/28/2016 Overview: 06/30/2011 TIA x2 2005, 2008. 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 1) Laparotomy 2) Joann almita roplasty 3) Wedge the gastric fundus 4) Robbie fundoplication 06/30/2011 Overview: 06/29/2011 - No c/o reflux post op. 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 documented as of this encounter (statuses as of 09/18/2022) [facility] History of Past illness Narrative* Problem Noted Date Resolved Date Discharge planning 06/26/2011 09/03/2011 Overview: 06/30/2011 Pt is and lives in [place] At this time, we anticipate that the patient will be discharged home. Patient is in SNF after suffering a stroke. Patient requests home care for a home visit. Plan: - Per social work: [facility] in [facility] can assist. SW provided contact info [...] 12/28/2016 Overview: 06/30/2011 TIA x2 2005, 2008. 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 1) Laparotomy 2) Joann almita roplasty 3) Wedge the gastric fundus 4) Robbie fundoplication 06/30/2011 Overview: 06/29/2011 - No c/o reflux post op. 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 documented as of this encounter (statuses as of 09/19/2022) [facility] History of Past illness Narrative* Problem Noted Date Resolved Date Discharge planning 06/26/2011 09/03/2011 Overview: 06/30/2011 Pt is and lives in [place] At this time, we anticipate that the patient will be discharged home. Patient is in SNF after suffering a stroke. Patient requests home care for a home visit. Plan: - Per social work: [facility] in [facility] can assist. SW provided contact info [...] 12/28/2016 Overview: 06/30/2011 TIA x2 2005, 2008. 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 1) Laparotomy 2) Joann almita roplasty 3) Wedge the gastric fundus 4) Robbie fundoplication 06/30/2011 Overview: 06/29/2011 - No c/o reflux post op. 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 documented as of this encounter (statuses as of 09/20/2022) [facility]04[facility]2012 History of Past illness Narrative* Problem Noted Date Diagnosed Date Resolved Date Discharge planning 06/26/2011 2 Overview: 06/30/2011 Pt is and lives in [place] At this time, we anticipate that the patient will be discharged home. Patient is in SNF after suffering a stroke. Patient requests home care for a home visit. Plan: - Per social work: [facility] in [facility] can assist. SW provided contact info [...] 12/28/2016 Overview: 06/30/2011 TIA x2 2005, 2008. 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 1) Laparotomy 2) Joann almita roplasty 3) Wedge the gastric fundus 4) Robbie fundoplication 06/30/2011 Overview: 06/29/2011 - No c/o reflux post op. 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 documented as of this encounter (statuses as of 09/24/2022) [facility] History of Past illness Narrative* Problem Noted Date Diagnosed Date Resolved Date Discharge planning 06/26/2011 2 Overview: 06/30/2011 Pt is and lives in [place] At this time, we anticipate that the patient will be discharged home. Patient is in SNF after suffering a stroke. Patient requests home care for a home visit. Plan: - Per social work: [facility] in [facility] can assist. SW provided contact info [...] 12/28/2016 Overview: 06/30/2011 TIA x2 2005, 2008. 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 1) Laparotomy 2) Joann almita roplasty 3) Wedge the gastric fundus 4) Robbie fundoplication 06/30/2011 Overview: 06/29/2011 - No c/o reflux post op. 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 documented as of this encounter (statuses as of 10/29/2022) [facility] History of Past illness Narrative* Problem Noted Date Diagnosed Date Resolved Date Discharge planning 06/26/2011 2 Overview: 06/30/2011 Pt is and lives in [place] At this time, we anticipate that the patient will be discharged home. Patient is in SNF after suffering a stroke. Patient requests home care for a home visit. Plan: - Per social work: [facility] in [facility] can assist. SW provided contact info [...] 12/28/2016 Overview: 06/30/2011 TIA x2 2005, 2008. 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 1) Laparotomy 2) Joann almita roplasty 3) Wedge the gastric fundus 4) Robbie fundoplication 06/30/2011 Overview: 06/29/2011 - No c/o reflux post op. 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 documented as of this encounter (statuses as of 11/11/2022) [facility] History of Past illness Narrative* Problem Noted Date Diagnosed Date Resolved Date Discharge planning 06/26/2011 2 Overview: 06/30/2011 Pt is and lives in [place] At this time, we anticipate that the patient will be discharged home. Patient is in SNF after suffering a stroke. Patient requests home care for a home visit. Plan: - Per social work: [facility] in [place] can assist. SW provided contact info for this [employer] to call when pt returns home if [...] 12/28/2016 Overview: 06/30/2011 TIA x2 2005, 2008. 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 1) Laparotomy 2) Joann almita roplasty 3) Wedge the gastric fundus 4) Robbie fundoplication 06/30/2011 Overview: 06/29/2011 - No c/o reflux post op. 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 documented as of this encounter (statuses as of 01/19/2023) [facility] History of Past illness Narrative* Problem Noted Date Diagnosed Date Resolved Date Discharge planning 06/26/2011 2 Overview: 06/30/2011 Pt is and lives in [place] At this time, we anticipate that the patient will be discharged home. Patient is in SNF after suffering a stroke. Patient requests home care for a home visit. Plan: - Per social work: [facility] in [place] can assist. SW provided contact info for [...] 12/28/2016 Overview: 06/30/2011 TIA x2 2005, 2008. 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 1) Laparotomy 2) Joann almita roplasty 3) Wedge the gastric fundus 4) Robbie fundoplication 06/30/2011 Overview: 06/29/2011 - No c/o reflux post op. 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 documented as of this encounter (statuses as of 02/12/2023) [facility] History of Past illness Narrative* Problem Noted Date Diagnosed Date Resolved Date Discharge planning 06/26/2011 2 Overview: 06/30/2011 Pt is and lives in [place] At this time, we anticipate that the patient will be discharged home. Patient is in SNF after suffering a stroke. Patient requests home care for a home visit. Plan: - Per social work: [facility] in [place] can assist. SW provided contact info for [employer] to call when pt returns home if [...] 12/28/2016 Overview: 06/30/2011 TIA x2 2005, 2008. 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 1) Laparotomy 2) Joann almita roplasty 3) Wedge the gastric fundus 4) Robbie fundoplication 06/30/2011 Overview: 06/29/2011 - No c/o reflux post op. 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 documented as of this encounter (statuses as of 02/21/2023) [facility] History of Past illness Narrative* Problem Noted Date Diagnosed Date Resolved Date Discharge planning 06/26/2011 2 Overview: 06/30/2011 Pt is and lives in [place] At this time, we anticipate that [...] 12/28/2016 Overview: 06/30/2011 TIA x2 2005, 2008. 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 1) Laparotomy 2) Joann almita roplasty 3) Wedge the gastric fundus 4) Robbie fundoplication 06/30/2011 Overview: 06/29/2011 - No c/o reflux post op. 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 documented as of this encounter (statuses as of 02/24/2023) [facility] History of Past illness Narrative* Problem Noted Date Diagnosed Date Resolved Date Discharge planning 06/26/2011 2 Overview: 06/30/2011 Pt is and lives in [place] At this time, we anticipate that the patient will be discharged home. Patient is in SNF after suffering a stroke. Patient requests home care for a home visit. Plan: - Per social work: Friends in [facility] can assist. SW provided contact info for [employer] to call when pt returns home if [...] 12/28/2016 Overview: 06/30/2011 TIA x2 2005, 2008. 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 1) Laparotomy 2) Joann almita roplasty 3) Wedge the gastric fundus 4) Robbie fundoplication 06/30/2011 Overview: 06/29/2011 - No c/o reflux post op. 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 documented as of this encounter (statuses as of 04/29/2023) [facility] History of Past illness Narrative* Problem Noted Date Diagnosed Date Resolved Date Discharge planning 06/26/2011 2 Overview: 06/30/2011 Pt is and lives in [place] At this time, we anticipate that the patient will be discharged home. Patient is in SNF after suffering a stroke. Patient requests home care for a home visit. Plan: - Per social work: Friends in [facility] can assist. SW provided contact info for [employer] to call when pt returns home if [...] 12/28/2016 Overview: 06/30/2011 TIA x2 2005, 2008. 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 1) Laparotomy 2) Joann almita roplasty 3) Wedge the gastric fundus 4) Robbie fundoplication 06/30/2011 Overview: 06/29/2011 - No c/o reflux post op. 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 documented as of this encounter (statuses as of 07/04/2023) [facility] History of Past illness Narrative* Problem Noted Date Diagnosed Date Resolved Date Discharge planning 06/26/2011 2 Overview: 06/30/2011 Pt is and lives in [place] At this time, we anticipate that the patient will be discharged home. Patient is in SNF after suffering a stroke. Patient requests home care for a home visit. Plan: - Per social work: Friends in [facility] can assist. [employer] provided contact info for [employer] to call when pt returns home if [...] 12/28/2016 Overview: 06/30/2011 TIA x2 2005, 2008. 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 1) Laparotomy 2) Joann almita roplasty 3) Wedge the gastric fundus 4) Robbie fundoplication 06/30/2011 Overview: 06/29/2011 - No c/o reflux post op. 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 documented as of this encounter (statuses as of 07/04/2023) [facility] Note Date/Time December 29, 2024 7 :44am [facility] Medical Records Department [address] [place] [address] Consultation - GI 12/27/24 1752 MR#: [id number] Acct: [id number] Name: KESHIA ROJAS Rep #:[id number] : 1950 74 From: Raul Casper DO PCP: Dr. Paulo Scott MD Status:AD M IN Location: [facility] [id number] HPI Consult Data Date of Consult: 12/27/24 HPI Narrative Reason for Consultation: GI bleed HPI Narrative: KESHIA ROJAS, is a 74 F who presented today for the evaluation of lower abdominal pain. Patient states since Friday she has been having lower abdominal pain, nausea, vomiting, dark stools, and lightheadedness. In the ED she was noted to have a hemoglobin dropped down from 14.5 down to 7. She does take aspirin on a daily basis. She was recently seen in the clinic after ED visit with nausea. Patient was found to have a UTI and was started on cephalexin. This has caused her to become constipated. She did not like taking the cephalexin and feels her bowelshave normalized. 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 [facility] Medical History Loss of hearing Wears glasses Wears partial dentures Post-menopausal Anxiety Thyroid disease Ambulates with cane Urinary incontinence Difficulty swallowing Gastric reflux Non-smoker History of echocardiogram History of stress test Seasonal allergies History of edema Cardiology follow-up encounter History of cataract Ganglion cyst Atherosclerotic heart disease of [place] coronary artery without angina pectoris Cholelithiasis with [...] 100 mg capsule 300 mg PO QHS PAIN 01/11/14 12/26/24 History diazepam 5 mg tablet 5 mg PO QHS PRN anxiety 12/1712/26/24 History aspirin 81 mg tablet,delayed 81 mg PO DAILY@0800 HEART 02/09/19 12/26/24 History release multivitamin 1 tab PO DAILY SUPPLEMENT 12/26/24 History cholecalciferol (vitamin D3) 125 125 mcg PO DAILY SUPP LEMENT 10/11/19 05/05/22 History mcg (5,000 unit) capsule inhalational spacing device #1 ea 10/11/19 Unknown Rx (BreatheRite MDI Spacer) levothyroxine 88 mcg tablet 88 mcg PO DAILY THYROID 12/27/24 History cranberry fruit concentrate 250 mg 250 mg PO DAILY URI [facility] 01/31/23 12/27/24 History chewable tablet (Azo Cranberry) spironolactone 25 mg tablet 25 mg PO 1700 PRN HTN 07/1712/26/24 History amlodipine 5 mg tablet 5 mg PO DAILY HTN 10/15/24 1 History lactulose 10 gram/15 mL oral 30 ml PO QHS 12/27/2403/10 History solution Allergy/AdvReac Type Severity Reaction Status Date / Time latex Allergy Unknown PT UNSURE Verified 12/27/24 09:55 OF REACTION adhesive Allergy Unknown Verified 12/27/24 09:55 benzocaine (From Cetacaine) Allergy Unknown Verified 12/27/24 09:55 butamben (From Cetacaine) Allergy Vomiting Verified 12/27/24 09:55 cortisone (Cortisone) Allergy Unknown Verified 12/27/24 09:55 dipyridamole (From Aggrenox) Allergy Unknown Verified 12/27/24 09:55 lansoprazole (From Prevacid) Allergy Unknown Verified 12/27/24 09:55 meclizine Allergy Unknown Verified 12/27/24 09:55 methylprednisolone acetate Allergy Angioedema Verified 12/27/24 09:55 (From Depo-Medrol) metoprolol Allergy Unknown Verified 12/27/24 09:55 omeprazole (From Prilosec) Allergy Unknown Verified 12/27/24 09:55 omeprazole magnesium (From Allergy Unknown Verified 12/27/24 09:55 Prilosec) oxybutynin chloride (From Allergy Unknown Verified 12/27/24 09:55 Ditropan) povidone-iodine (From Allergy Unknown Verified 12/27/24 09:55 Betadine) sulfamethoxazole (From Allergy Unknown Verified 12/27/24 09:55 Bactrim) tegaserod (From Zelnorm) Allergy Hives Verified 12/27/24 09:55 tegaserod hydrogen maleate Allergy Unknown Verified 12/27/24 09:55 (From Zelnorm) tetracaine (From Cetacaine) Allergy Unknown Verified 12/27/24 09:55 tolterodine tartrate (From Allergy Unknown Verified 12/27/24 09:55 Detrol) trimethoprim (From Bactrim) Allergy Unknown Verified 12/27/24 09:55 lisinopril AdvReac Intermediate Angioedema Verified 12/27/24 09:55 adhesive tape AdvReac Rash Verified 12/27/24 09:55 codeine AdvReac Unknown Verified 12/27/24 09:55 mirabegron (From Myrbetriq) AdvReac Other Verified 12/27/24 09:55 tizanidine AdvReac Other Verified 12/27/24 09:55 vaccine adjuvant system, AdvReac Rash Verified 12/27/24 09:55 [id number] liposomal (From Shingrix (PF)) varicella-zoster virus AdvReac Rash Verified 12/27/24 09:55 glycoprotein E, recombinant (From Shingrix (PF)) Family [...] hernia repair History of tonsillectomy Social History housing: house Smoking Status: Never smoker alcohol intake: never substance use type: does not use caffeine: Yes Type: coffee Number of servings: 2 what type of physical activity do you participate in: walking frequency: 3-4 times per week ROS Constitutional Constitutional: Denies fatigue, fever(s), poor appetite, weight gain or weight loss Gastrointestinal Gastrointestinal: Denies belching, bloating, change in bowel habits, change in stool character, chewing difficulty, coffee ground emesis, constipation, cramping, diarrhea, dyspepsia, dysphagia, early satiety, excessive flatus, fecalincontinence, heartburn, hematemesis, hematochezia, hemorrhoids, loose stools, melena, nausea, odynophagia, rectal bleeding, tenesmus, vomiting or weight changes Physical Exam Const alert, oriented x3, no apparent distress and healthy appearing General Appearance: cooperative GI normal to inspection, nondistended, normoactive bowel sounds, soft to palpation,non-tender and non-distended Percussion: normal to percussion Rectal Exam: deferred Lab / Micro Data 12/27/24 16:40 12/27/24 10:10 Labs: Laboratory Results - last 24 hr 12/27/24 10:10: WBC 12.0 H, RBC 2.20 L, Hgb 7.0 L, Hct 21.2 L, MCV 96.4, MCH 31.8, MCHC 33.0, RDW Std Deviation 47.8 H, RDW Coeff of Ronnie 14.1, Plt Count 251,MPV 10.2, Immature Gran % (Auto) 0.600, Neut % (Auto) 67.3, Lymph % (Auto) 21.4,[place] % (Auto) 6.4, Eos % (Auto) 3.8, Baso % (Auto) 0.5, Absolute Neuts (auto) 8.1 H, Absolute Lymphs (auto) 2.57, Nucleated RBC % 0.2, Sodium 135, Potassium 3.8, Chloride 103, Carbon Dioxide 23.0, Anion Gap 10, BUN 23 H, Creatinine 0.68 L, Estim Creat Clear Calc 71.20, Est GFR (MDRD) Non-Af 91, BUN/Creatinine Ratio 34.2 H, Glucose 378 H, Hemoglobin A1c 7.8 H, Calcium 8.5, Total Bilirubin 0.23, AST 18, ALT 20, Alkaline Phosphatase 52, Total Protein 5.6 L, Albumin 3.4, Globulin 2.2, Albumin/Globulin Ratio 1.5, Lipase 25, Blood Type A POSITIVE, Antibody Screen NEGATIVE, Crossmatch See Detail 12/27/24 11:03: PT 13.6, INR 1.0, APTT 22.6 L, Lactic Acid 2.6 H* 12/27/24 11:23: Urine Color Yellow, Urine Clarity Sl. Cloudy, Urine pH 6.0, Ur Specific [place] 1.020, Urine Protein 15 H, Urine Glucose (UA) 1000 H, Urine Ketones Negative, Urine Occult Blood Negative, Urine Nitrite Negative, Urine Bilirubin Negative, Urine Urobilinogen Normal, Ur Leukocyte Esterase 100 H, Urine RBC 0-5 SEEN, Urine WBC 5-10 SEEN, Ur Squamous Epith Cells 5-10 SEEN, Urine Bacteria 1+, Urine Mucus RARE 12/27/24 16:40: Hgb 8.2 L, Hct 25.4 L 12/27/24 17:08: POC Glucose 190 H Micro: Microbiology 12/27/24 11:23 Stool Stool Occult Blood (PIA) - Final Occult Blood Positive Imaging Radiology Impression Abdomen/Pelvis CT 12/27/24 11:12 IMPRESSION: Diffuse fatty infiltration of the liver. Findings suggestive of pancreatitis in the region of the head of the pancreas. Small right renal cysts. Status post subtotal gastrectomy. Reading Location: [facility] Assessment & Plan Assessment/Plan (1) GI bleed: (2) Acute anemia: PLAN: ASSESSMENT * GI bleed:?This is supported by the patient's report of dark stools (melena), a significant drop in hemoglobin, and symptoms of lightheadedness. The use of daily aspirin is a major risk factor for GI bleeding. * Anemia (severe):?The marked drop in hemoglobin from 14.5 to 7.0 indicates severe anemia, likely secondary to GI blood loss. This accounts for her lightheadedness. * Sarmiento's esophagus:?The patient's history of Sarmiento's esophagus and ongoing heartburn, without being on a PPI, is a relevant risk factor for esophageal and gastric issues, which could be related to her GI bleed. * Aspirin-induced gastrointestinal ulceration/bleeding:?Her daily aspirin use is a likely cause of the acute GI bleeding, exacerbated by the lack of a protective PPI for her Sarmiento's esophagus. * * Constipation:?While the patient feels her bowels have normalized, the recent constipation following cephalexin may have contributed to GI discomfort. However, the current presentation of dark stools and significant blood loss is more concerning. Differential Diagnoses: * Peptic Ulcer Disease:?Ulcers, possibly from aspirin use, can cause GI bleeding. * Acute Diverticular Bleed:?Diverticula in the colon can cause significant bleeding. * Angiodysplasia:?Abnormal blood vessels in the GI tract can lead to bleeding. * Malignancy:?A GI malignancy, such as colon cancer, should be ruled out given the patient's age and symptoms. PLAN * Hospital Admission:?The patient's significant drop in hemoglobin necessitates immediate hospitalization for stabilization and further workup. * Diagnostic Procedures:?Upper endoscopy and colonoscopy are indicated to identify and treat the source of the GI bleed. * Medication Management:?Hold aspirin immediately. Start a proton pump inhibitor to help with the bleeding and manage her Sarmiento's esophagus. * * Transfusion:?Likely require a blood transfusion to address severe anemia. Monitor hemoglobin levels closely. Charges/Coding Visit Charges Inpatient E&M: 64272 Init Hosp L3 12/29/24 0744 <Electronically signed by Raul Friend DO> Cosigner Signature (if applicable): CC: Dr. Paulo Scott MD~ Signed [facility] Work Phone: Consult note Author Ang Josue [facility] Note Date/Time December 28, 2024 5 :55pm [facility] Medical Records Department [address] [place] [address] Pre-Anesthesia Evaluation 12/28/24 1742 MR#: [id number] Acct: [id number] Name: KESHIA ROJAS Rep #:[id number] : 1950 74 From: Ang Josue MD PCP: Dr. Paulo Scott MD Status:AD M IN Y Race: C Location: [place] [address] ASA Classification* ASA Classification ASA Classification: 3 Assessment & Plan Anesthesia* Anesthesia Assessment Anesthesia Assessment: Discussed sedation and/or anesthesia options, risks, benefits, and alternatives with patient/parents/legal guardian/POA. Questions invited. The patient/parents/legal guardian/POA seems to understand and agrees to proceedwith anesthesia plan. Reviewed the physical assessment, medical history, allergy history and patient home medications list prior to surgery/procedure/anesthetic and documented any changes. Performed airway and anesthesia risk assessments. Anesthesia Type Anesthesia Type: MAC History Source History Obtained from:: Patient and Chart Anesthesia Focused Assessment* Temperature: 98.9 F Pulse Rate: 85 Blood Pressure: 135/60 Respiratory Rate: 20 Pulse Ox: 94 Oxygen Delivery Method: Room Air Airway Assessment Mouth opens: >3 cm Mallampati Score: IV Teeth Condition: Missing (Multiple missing incisors on the top. Nothing loose.) Neck Range of motion (ROM): Limited ROM (Slight Decrease) Labs Anesthesia Preop lab: CBC WBC, (4.4-11.0) 9.5 K/mm3 Today, 04:10 RBC, (4.2-5.4) 2.28 M/mm3 L Today, 04:10 Hgb, (12.0-15.0) 8.3 g/dL L Today, 10:08 Hct, (37-47) 25.4 % L Today, 10:08 Plt Count, (150-450) 217 K/mm3 Today, 04:10 CHEMISTRY Potassium, (3.3-5.1) 4.1 mmol/L Today, 04:10 Sodium, (133-145) 139 mmol/L Today, 04:10 Magnesium, (1.5-2.2) 2.2 mg/dL Today, 04:10 Phosphorus, (2.7-4.5) 2.9 mg/dL Today, 04:10 BUN, (4-19) 12 mg/dL Today, 04:10 Creatinine, (0.70-1.20) 0.58 mg/dL L Today, 04:10 Glucose, (70-99) 185 mg/dL H Today, 04:10 POC Glucose, (74-106) 166 mg/dL H Today, 16:10 TSH, (0.300-4.200) 6.330 uIU/mL H Today, 04:10 COAG PT, (11.7-14.9) 14.5 SECONDS Today, 04:10 Pre-Assessment Diagnosis/Proposed Procedure Planned Operative Procedure(s): EGD. 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 When Was Last Pacemaker Check QUESTION #4 FULL TEXT: You/Your Family Experience fever (hyperthermia) with Anesthesia Last Oral Intake Last Oral intake: Last Oral Intake NPO since 00:00 12/28/24 09:22 Meds taken in AM with sips of Yes 12/28/24 09:22 water? 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 Female HX of Motion Sickness HX of N/V After Surgery Non-Smoker Duration of Surgery greater than 60 minutes Number of Risk Factors PONV Score Height & Weight Height & Weight: Anesthesia: Height & Weight Height 5 ft 4 in 12/28/24 09:22 Weight: 104.1 kg 12/28/24 09:22 Body Mass Index (BMI) 39.4 12/28/24 09:22 Respiratory Assessment Respiratory Assessment - stage setting painter apprentice: Respiratory Tract Infection Hx - stage setting painter apprentice Hx Respiratory Tract Infection No 12/28/24 09:24 STOP Sleep Apnea STOP Sleep Apnea - stage setting painter apprentice: STOP Sleep Apnea - stage setting painter apprentice Hx Hypertension Yes 12/27/24 15:34 Hx Sleep Apnea No 12/27/24 15:34 CPAP BIPAP Do you snore loudly (louder Yes 12/27/24 15:34 than talking or can be heard Do you often feel tired/ Yes 12/27/24 15:34 fatigued/ sleepy during daytime? Has anyone observed you stop No 12/27/24 15:34 breathing during sleep? STOP Results Positive 12/27/24 15:34 QUESTION #5 FULL TEXT : Do you snore loudly (louder than talking or can be heard through closed doors)? 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 Specify any problems Hx of Preganancy in last 3 N/A 12/27/24 15:34 Months Nurse Filling Out Transfusion AHAGGERTY 12/27/24 15:34 & Questions: Date: 12/27/24 12/27/24 15:34 Time: 15:37 12/27/24 15:34 Patient unable to answer at this time (ie. confused, unrespo /Reproduction History /Reproductive History - stage setting painter apprentice: /Reproductive Hx- stage setting painter apprentice Hx Now No 12/28/24 09:24 Gestational Age (in weeks): EDC: Hx Hx Para Hx Section SAB No 12/28/24 04:53 Active Medications Active Medications: Current Medications Generic Name Dose Route Start Last Admin Trade Name Freq PRN Reason Stop Dose Admin Amlodipine Besylate 5 mg 12/28/24 10:00 12/28/24 08:35 Amlodipine 5 Mg Tablet PO 5 mg DAILY SELAM Administration Protocol Diazepam 5 mg 12/27/24 15:21 Diazepam 5 Mg Tablet PO QHS PRN ANXIETY Gabapentin 300 mg 12/27/24 22:00 12/27/24 20:46 Gabapentin 300 Mg Capsule PO 300 mg QHS SELAM Administration Glucagon 1 mg 12/28/24 10:15 Glucagon 1 Mg/Ml Syringe IM X1 PRN Hypoglycemia Protocol Pantoprazole Sodium 80 mg/ 100 mls @ 10 mls/hr 12/27/24 14:30 12/28/24 17:20 Sodium Chloride CONT INF 0 mls/hr Q10H SELAM Infusion Ceftriaxone Sodium 1 gm in 50 mls @ 100 mls/hr 12/27/24 15:21 12/28/24 09:45 Rocephin IV Infused Q24 SELAM Infusion Dextrose 250 mls @ 0 mls/hr 12/28/24 10:15 Dextrose 10%-Water IV .Q0M PRN HYPOGLYCEMIA Protocol As Directed Sodium Chloride 250 mls @ 15 mls/hr 12/28/24 13:23 IV .[id number] PRN Saline Flush Sodium Chloride 250 mls @ 15 mls/hr 12/28/24 13:23 IV .[id number] PRN Additional IVPB Infusion Insulin Glargine 10 unit 12/29/24 08:00 Insulin Glargine-Yfgn 100 Unit/Ml Pen SC DAILY [facility] Insulin Human Lispro 0 unit 12/27/24 18:00 12/28/24 16:14 Insulin Lispro 100 Unit/Ml Insuln.Pen SC Not Given Q6 [facility] Protocol Levothyroxine Sodium 88 mcg 12/28/24 06:00 12/28/24 04:57 Levothyroxine 88 Mcg Tablet PO Not Given DAILY@0600 [facility] Morphine Sulfate 2 - 4 mg 12/27/24 15:21 12/27/24 20:46 Morphine 2 Mg/Ml Syringe IV 2 mg Q3H PRN PRN Administration Pain Score 6-10 Multivitamins 1 tablet 12/28/24 08:00 12/28/24 09:08 Multivitamins,Therapeutic Tablet [facility] Ondansetron HCl 4 mg 12/27/24 15:21 Ondansetron 4 Mg/2 Ml Vial IV Q8H PRN PRN NAUSEA/VOMITING Sodium Chloride 10 - 40 ml 12/27/24 15:47 12/27/24 20:47 0.9% Saline Lock 10 Ml Syringe IV 10 ml UD PRN Administration SALINE FLUSH PFSH Medical History Loss of hearing Wears glasses Wears partial dentures Post-menopausal Anxiety Thyroid disease Ambulates with cane Urinary incontinence Difficulty swallowing Gastric reflux Non-smoker History of echocardiogram History of stress test Seasonal allergies History of edema Cardiology follow-up encounter History of cataract Ganglion cyst Atherosclerotic heart disease of [place] coronary artery without angina pectoris Cholelithiasis with [...] 100 mg capsule 300 mg PO QHS PAIN 01/11/14 12/26/24 History diazepam 5 mg tablet 5 mg PO QHS PRN anxiety 12/1712/26/24 History aspirin 81 mg tablet,delayed 81 mg PO DAILY@0800 HEART 02/09/19 12/26/24 History release multivitamin 1 tab PO DAILY SUPPLEMENT 12/26/24 History cholecalciferol (vitamin D3) 125 125 mcg PO DAILY SUPP LEMENT 10/11/19 05/05/22 History mcg (5,000 unit) capsule inhalational spacing device #1 ea 10/11/19 Unknown Rx (BreatheRite MDI Spacer) levothyroxine 88 mcg tablet 88 mcg PO DAILY THYROID 12/27/24 History cranberry fruit concentrate 250 mg 250 mg PO DAILY URI Reocar 01/31/23 12/27/24 History chewable tablet (Azo Cranberry) spironolactone 25 mg tablet 25 mg PO 1700 PRN HTN 07/1712/26/24 History amlodipine 5 mg tablet 5 mg PO DAILY HTN 10/15/24 1 History lactulose 10 gram/15 mL oral 30 ml PO QHS 12/27/2403/10 History solution Allergy/AdvReac Type Severity Reaction Status Date / Time latex Allergy Unknown PT UNSURE Verified 12/27/24 09:55 OF REACTION adhesive Allergy Unknown Verified 12/27/24 09:55 benzocaine (From Cetacaine) Allergy Unknown Verified 12/27/24 09:55 butamben (From Cetacaine) Allergy Vomiting Verified 12/27/24 09:55 cortisone (Cortisone) Allergy Unknown Verified 12/27/24 09:55 dipyridamole (From Aggrenox) Allergy Unknown Verified 12/27/24 09:55 lansoprazole (From Prevacid) Allergy Unknown Verified 12/27/24 09:55 meclizine Allergy Unknown Verified 12/27/24 09:55 methylprednisolone acetate Allergy Angioedema Verified 12/27/24 09:55 (From Depo-Medrol) metoprolol Allergy Unknown Verified 12/27/24 09:55 omeprazole (From Prilosec) Allergy Unknown Verified 12/27/24 09:55 omeprazole magnesium (From Allergy Unknown Verified 12/27/24 09:55 Prilosec) oxybutynin chloride (From Allergy Unknown Verified 12/27/24 09:55 Ditropan) povidone-iodine (From Allergy Unknown Verified 12/27/24 09:55 Betadine) sulfamethoxazole (From Allergy Unknown Verified 12/27/24 09:55 Bactrim) tegaserod (From Zelnorm) Allergy Hives Verified 12/27/24 09:55 tegaserod hydrogen maleate Allergy Unknown Verified 12/27/24 09:55 (From Zelnorm) tetracaine (From Cetacaine) Allergy Unknown Verified 12/27/24 09:55 tolterodine tartrate (From Allergy Unknown Verified 12/27/24 09:55 Detrol) trimethoprim (From Bactrim) Allergy Unknown Verified 12/27/24 09:55 lisinopril AdvReac Intermediate Angioedema Verified 12/27/24 09:55 adhesive tape AdvReac Rash Verified 12/27/24 09:55 codeine AdvReac Unknown Verified 12/27/24 09:55 mirabegron (From Myrbetriq) AdvReac Other Verified 12/27/24 09:55 tizanidine AdvReac Other Verified 12/27/24 09:55 vaccine adjuvant system, AdvReac Rash Verified 12/27/24 09:55 AS01B liposomal (From Shingrix (PF)) varicella-zoster virus AdvReac Rash Verified 12/27/24 09:55 glycoprotein E, recombinant (From Shingrix (PF)) Family [...] hernia repair History of tonsillectomy Social History housing: house Smoking Status: Never smoker alcohol intake: never substance use type: does not use caffeine: Yes Type: coffee Number of servings: 2 what type of physical activity do you participate in: walking frequency: 3-4 times per week Review of Systems (Anesthesia) ROS Narrative System reviewed and no additional complaints, except as documented. 12/28/241754 <Electronically signed by Ang gandara MD> Date _ Ang Josue MD Cosigner Signature: Date CC: ~ Signed [facility] Work Phone: Consult note Author [facility] Note Date/Time December 28, 2024 7 :20pm [facility] Medical Records Department [address] [place] [address] Anesthesia Postop Eval I 12/28/241917 MR#: [id number] Acct: [id number] Name: KESHIA ROJAS Rep #:[id number] : 1950 74 From: Ang Josue MD PCP: Dr. Paulo Scott MD Status:AD M IN Y Race: C Location: [place] [address] Anesthesia: Postop Eval I Current Vital Signs Temperature: 98.7 F Pulse Rate: 87 Blood Pressure: 111/61 Respiratory Rate: 16 Pulse Ox: 95 Oxygen Delivery Method: Room Air Assessment Airway patent: Yes Spontaneous unlabored respirations: Yes Mental status: Awake and Calm nausea: No Vomiting: No Anesthesia Complication: No Fluid Hydration Crystalloid volume administer (ml): 200 Total IV fluid infused: 200 Progress Note Anesthesia document: Postop Eval 1 completed: Yes 12/28/241919 <Electronically signed by Ang gandara MD> Date _ Ang Josue MD Cosigner Signature: Date CC: ~ Signed [facility] Work Phone: consuiu note Author Ang Josue [facility] Note Date/Time January 03, 2025 5 :19pm [facility] Medical Records Department [address] [place] [address] [place] [address] Anesthesia Postop Eval II 12/28/242220 MR#: [id number] Acct: [id number] Name: KESHIA ROJAS Rep #:[id number] : 1950 74 From: Ang Josue MD PCP: Dr. Paulo Scott MD Status:AD M IN Y Race: C Location: [place] [address] 31 Anesthesia Postop Eval I Sum Postop Eval Completion status Anesthesia document: Postop Eval 1 completed: Yes Anesthesia Postop Eval I Summary Anesthesia Postop Eval I Summary: Anesthesia Postop Eval I: Assessment Summary Airway patent Yes 12/28/24 19:20 Spontaneous unlabored Yes 12/28/24 19:20 respirations Mental status Awake,Calm 12/28/24 19:20 nausea No 12/28/24 19:20 Vomiting No 12/28/24 19:20 Anesthesia Postop Eval I: Fluid Summary Crystalloid volume administer 200 12/28/24 19:20 (ml) Colloids volume administered ( ml) Blood Product volume administered (ml) Total IV fluid infused 200 12/28/24 19:20 Anesthesia Postop Eval I: Summary Notes Anesthesia Complication No 12/28/24 19:20 Anesthesia Complication Comment: Post-operative progress note Anesthesia: Postop Eval II Evaluation Mental status: Awake and Calm Pain Level: 0 nausea: No Vomiting: No Complications Anesthesia Complication: No 12/28/242220 <Electronically signed by Ang gandara MD> Date _ Ang Ash Signature: Date CC: ~ Signed [facility] Work Phone: Consult note Author Arnie Rogel [facility] Note Date/Time January 03, 2025 5 :19pm [facility] Medical Records Department [address] [place] [address] Counseling Note - Pharmacy 01/03/25 1219 MR#: [id number] Acct: [id number] Name: KESHIA ROJAS Rep #:[id number] : 1950 74 From: Arnie Rogel PCP: Dr. Paulo Scott MD Status:AD M IN Location: [place] [address] Pharmacy [place] Med Reconciliation Pharmacy Service has performed discharge medication reconciliation for this patient. The patient's discharge medication list was reviewed for discrepancies and discrepancies were resolved. Medications at Discharge Home Medications gabapentin 100 mg capsule 300 mg PO QHS PAIN 01/11/14 diazepam 5 mg tablet 5 mg PO QHS PRN anxiety 01/13/19 aspirin 81 mg tablet,delayed release 81 mg PO DAILY@0800 HEART 02/09/19 multivitamin 1 tab PO DAILY SUPPLEMENT 04/08/19 cholecalciferol (vitamin D3) 125 mcg (5,000 unit) capsule 125 mcg PO DAILY SUPPLEMENT 10/11/19 levothyroxine 88 mcg tablet 88 mcg PO DAILY THYROID 07/26/22 cranberry fruit concentrate 250 mg chewable tablet (Azo Cranberry) 250 mg PO DAILY [facility] 01/31/23 amlodipine 5 mg tablet 5 mg PO DAILY HTN 10/15/24 lactulose 10 gram/15 mL oral solution 30 ml PO QHS 12/27/24 L.acidophil,salivari-Bifido bifidum-Strep thermoph 175 mg capsule 1 cap PO BID #0 caps 01/03/25 acetaminophen 325 mg tablet 650 mg (2 x 325 mg) PO Q6H PRN PRN Pain 1-10 Or Fever #0 tabs 01/03/25 furosemide 40 mg tablet 40 mg PO BIDLX #0 tabs 01/03/25 insulin glargine 100 unit/mL (3 mL) subcutaneous pen (Lantus Solostar U-100 Insulin) 15 unit (0.15 mL) subcut DAILY 1 month #4.5 mL 01/03/25 ipratropium 0.5 mg-albuterol 3 mg (2.5 mg base)/3 mL nebulization soln 3 ml inhalation Q4HWA.RT PRN #0 mL 01/03/25 ondansetron HCl (PF) 4 mg/2 mL injection solution 4 mg (2 mL) PO Q6H PRN Nausea/Vomiting #0 mL 01/03/25 pantoprazole 40 mg tablet,delayed release 40 mg PO BID #0 tabs 01/03/25 sennosides 8.6 mg-docusate sodium 50 mg tablet (Stimulant Laxative Plus) 2 tab PO BID #0 tabs 01/03/25 spironolactone 25 mg tablet 25 mg PO 1700 HTN 30 days #30 tabs 01/03/25 01/03/25 1219 <Electronically signed by Arnie umanzor> Date _ Arnie Ash Signature (if applicable): Date CC: ~ Signed [facility] Work Phone: Discharge summary Author Clifton Wells [facility] Note Date/Time January 03, 2025 1 2:54pm [facility] Medical Records Department [address] [place] [address] Transfer to [facility] MR#: [id number] Acct: [id number] Name: KESHIA ROJAS Rep #:[id number] : 1950 74 From: Clifton Tony PCP: Dr. Paulo Scott MD Status:AD M IN Certification of patient admission REQUIRED AT TIME OF ADMISSION. I CERTIFY THAT POST-HOSPITAL ECF SERVICES ARE REQUIRED TO BE GIVEN ON AN IN-PATIENT BASIS BECAUSE OF THE ABOVE NAMED PATIENT'S NEED FOR SHELTER CARE ON A CONTINUING BASIS FOR THE CONDITION(S) FOR WHICH HE/SHE WAS RECEIVING IN-PATIENT HOSPITAL SERVICES PRIOR TO HIS/HER TRANSFER TO THE ECF. 01/03/25 1254<Electronically signed by Clifton Wells MD> Diet Diet Order/Speech Therapy: INPATIENT Hospital Diet / Speech Therapy Order(s) 12/30/24 11:26 Diet: Cardiac - Heart Healthy Food consistency:: Regular Liquid Consistency:: Regular/Thin Dietary Modifications:: Consistent Carbohydrate Fluid restriction:: 2000 mL DC O2, CPAP, BIPAP needs Home O2 Discharge instructions: Yes Type of respiratory needs?: Oxygen Oxygen frequency: Continuous Continuous oxygen liters per minute: 2 Problem/Diagnosis (1) GI bleed: Status: Acute Code(s): K92.2 - Gastrointestinal hemorrhage, unspecified Plan Patient is a 74-year-old lady who presented to the emergency department with abdominal pain with associated nausea and vomiting as well as melenic stools. Patient was found to be anemic with hemoglobin of 7.0 admitted to monitored bed for further management 1. Anemia ? Secondary to acute blood loss anemia suspected to be secondary to upper GI bleed exacerbated by the use of aspirin. Patient hemoglobin on admission was 7.0 patient was transfused with 1 unit PRBC started on Protonix drip after bolus admitted to monitored bed H&H ordered consult placed to GI ? 12/29/2024; patient underwent EGD by Dr. Casper on 12/28/2024 findings and recommendations as below Impressions : - LA Grade C erosive esophagitis with bleeding. Biopsied. Treated with a heater probe. - Zakia-Quezada tear. Treated with a heater probe. - Hiatal hernia. - A fundoplication was found. The wrap appears loose. - No gross lesions in the entire stomach. - No gross lesions in the entire examined duodenum. Recommendations : -- Use Protonix (pantoprazole) 40 mg PO BID for 3 months. Patient hemoglobin down to 7.3 we will continue with monitoring. Repeated H&H at 1400 ? 12/31/2023; patient hemoglobin up to 7.9 01/01: H&H 8.3/25%. Platelet count 310. 01/02: H&H 8.7/26.9, better than she had 7.2 hemoglobin. 01/03 H&H improving. 2. Acute cystitis ? Patient urinalysis was abnormal and consistent with UTI started on ceftriaxone ? 12/29/2024; patient urine cultures so far positive for an alphahemolytic organism with greater than 100 K CFU and mixed gram-positive and gram-negative organisms with 25K-50K CFU final identification and sensitivities pending ? 12/30/2024; patient friend urine culture sensitivities reviewed positive for Aerococcus 01/01 on IV ceftriaxone 01/02: No leukocytosis. H&H 3. Acute congestive heart failure?suspected heart failure with preserved ejection fraction ? Ordered 2D echo, proBNP. Patient started on diuretics placed on low-sodium diet in addition to fluid restriction and serial monitoring of electrolyte. Also ordered daily weights as well as strict input and output and discontinued patient IV fluids 12/31/2024; Had a good response to diuretic therapy and had a negative fluid balance of 4.7 L over the past 24 hours will continue with diuretic therapy was relaxing her fluid restriction per her request. 2D echo obtained did show normalLV size. Moderate concentric left ventricular hypertrophy. The left ventricular ejection fraction is 75 %.Left ventricular systolic function is normal. Resting LV gradient 4 mmHg.Valsalva LV gradient 47 mmHg. Plan is to continue with diuretic therapy for an additional day 01/01: Patient on room air, pulse ox 94%. Hypoxia resolved. 01/02: Repeat chest x-ray shows bibasilar atelectasis. Encouraged incentive spirometry and PEP. 01/03: Patient completed 7 days of IV ceftriaxone therefore discontinued 4. Peripheral arterial disease ? Patient is on antiplatelet held on admission 5. New onset diabetes mellitus type 2 ? Patient presented with hyperglycemia hemoglobin A1c ordered came back at 7.8. Subsequently placed on Accu-Cheks ACHS as well as 1800 ADA diet 6. Degenerative joint disease ? Pain meds as needed 7. Hepatosteatosis ? Consult was placed to GI on admission 8. Hypertension ? Blood pressure controlled, home medications continued with dose adjustment as needed 9. Mild intermittent asthma ? Currently not in exacerbation aerosol treatments as needed 10. GERD/history of Sarmiento's esophagus - Previous Robbie fundoplication; PPI as above 11. Hypothyroidism ? Patient is on levothyroxine home dose continued 12. Remote history of DVT ? Patient was treated appropriately 13. Class II obesity with BMI of 39.4 ? Complicating care weight loss advised 14. DVT prophylaxis ? Bilateral SCDs 15. Hypokalemia ? Corrected per protocol repeat labs ordered in a.m. to assess response to therapy 16. Atelectasis ? Did encourage the use of incentive spirometry 17. Physical deconditioning ? Requested for PT OT eval and social worker clinical to assist with discharge planning 18. 01/01: Patient has not moved bowels since admission. Senna S2 tablet twicedaily, MiraLAX ordered. Dulcolax also ordered 01/02: She did not had bowel movement yesterday. Dulcolax 20 mg 1 dose and soapsuds enema ordered 01/03: She had a bowel movement yesterday. She passed out once she was defecating and then another time she was trying to do physical therapy. Both were witnessed. No major injury. She recovered very quickly. Syncope possibledue to vasovagal reflex accompanied with physical deconditioning. Patient on Lasix 41 IV changed to oral. Orthostatic vitals ordered 12/27/24 11:23 Urine, Clean Catch Urine Culture - Final Aerococcus urinae Mixed Gram Pos & Gram Neg Org Laboratory Results 01/02/25 11:15: POC Glucose 237 H 01/02/25 12:20: POC Glucose 223 H 01/02/25 15:19: POC Glucose 209 H 01/02/25 20:39: POC Glucose 233 H 01/03/25 05:29: WBC 10.2, RBC 3.04 L, Hgb 8.9 L, Hct 28.1 L, MCV 92.4, MCH 29.3,MCHC 31.7 L, RDW Std Deviation 47.8 H, RDW Coeff of Ronnie 14.2, Plt Count 394, MPV9.3, Immature Gran % (Auto) 0.300, Neut % (Auto) 67.0, Lymph % (Auto) 16.9 L, [place] % (Auto) 8.0, Eos % (Auto) 7.1 H, Baso % (Auto) 0.7, Absolute Neuts (auto) 6.8, Absolute Lymphs (auto) 1.72, Nucleated RBC % 0, Sodium 136, Potassium 3.4, Chloride 95 L, Carbon Dioxide 30.9, Anion Gap 10, BUN 17, Creatinine 0.72, EstimCreat Clear Calc 67.93, Est GFR (MDRD) Non-Af 88, BUN/Creatinine Ratio 23.7 H, Glucose 158 H, Calcium 8.6 Laboratory Results 01/01/25 15:55: POC Glucose 208 H 01/01/25 21:39: POC Glucose 226 H 01/02/25 04:30: WBC 8.7, RBC 2.91 L, Hgb 8.7 L, Hct 26.9 L, MCV 92.4, MCH 29.9, MCHC 32.3, RDW Std Deviation 49.2 H, RDW Coeff of Ronnie 14.6, Plt Count 368, MPV 9.4, Immature Gran % (Auto) 0.700, Neut % (Auto) 58.6, Lymph % (Auto) 22.3, [place]% (Auto) 10.1 H, Eos % (Auto) 7.6 H, Baso % (Auto) 0.7, Absolute Neuts (auto) 5.1, Absolute Lymphs (auto) 1.93, Nucleated RBC % 0.2, Sodium 136, Potassium 3.5, Chloride 94 L, Carbon Dioxide 31.5, Anion Gap 10, BUN 21 H, Creatinine 0.84, Estim Creat Clear Calc 64.69, Est GFR (MDRD) Non-Af 73, BUN/Creatinine Ratio 25.0 H, Glucose 196 H, Calcium 8.9 01/02/25 06:46: POC Glucose 183 H Allergies/Procedures Done in Hospital Allergies latex Allergy (Unknown, Verified 12/27/24 09:55) PT UNSURE OF REACTION adhesive Allergy (Verified 12/27/24 09:55) Unknown benzocaine (From Cetacaine) Allergy (Verified 12/27/24 09:55) Unknown butamben (From Cetacaine) Allergy (Verified 12/27/24 09:55) Vomiting cortisone (Cortisone) Allergy (Verified 12/27/24 09:55) Unknown dipyridamole (From Aggrenox) Allergy (Verified 12/27/24 09:55) Unknown lansoprazole (From Prevacid) Allergy (Verified 12/27/24 09:55) Unknown meclizine Allergy (Verified 12/27/24 09:55) Unknown methylprednisolone acetate (From Depo-Medrol) Allergy (Verified 12/27/24 09:55) Angioedema metoprolol Allergy (Verified 12/27/24 09:55) Unknown omeprazole (From Prilosec) Allergy (Verified 12/27/24 09:55) Unknown omeprazole magnesium (From Prilosec) Allergy (Verified 12/27/24 09:55) Unknown oxybutynin chloride (From Ditropan) Allergy (Verified 12/27/24 09:55) Unknown povidone-iodine (From Betadine) Allergy (Verified 12/27/24 09:55) Unknown sulfamethoxazole (From Bactrim) Allergy (Verified 12/27/24 09:55) Unknown tegaserod (From Zelnorm) Allergy (Verified 12/27/24 09:55) Hives tegaserod hydrogen maleate (From Zelnorm) Allergy (Verified 12/27/24 09:55) Unknown tetracaine (From Cetacaine) Allergy (Verified 12/27/24 09:55) Unknown tolterodine tartrate (From Detrol) Allergy (Verified 12/27/24 09:55) Unknown trimethoprim (From Bactrim) Allergy (Verified 12/27/24 09:55) Unknown lisinopril Adverse Reaction (Intermediate, Verified 12/27/24 09:55) Angioedema question if try allergy adhesive tape Adverse Reaction (Verified 12/27/24 09:55) Rash PAPER TAPE codeine Adverse Reaction (Verified 12/27/24 09:55) Unknown mirabegron (From Myrbetriq) Adverse Reaction (Verified 12/27/24 09:55) Other tizanidine Adverse Reaction (Verified 12/27/24 09:55) Other vaccine adjuvant system, AS01B liposomal (From Shingrix (PF)) Adverse Reaction (Verified 12/27/24 09:55) Rash varicella-zoster virus glycoprotein E, recombinant (From Shingrix (PF)) Adverse Reaction (Verified 12/27/24 09:55) Rash Type of Care/Length of Stay Estimated LOS: Convalescent Care Less Than 30 days Type of Care Needed: Skilled Rehab Potential: Good Prognosis: Good Additional Orders/Day of Discharge Day of Discharge: 01/03/25 Dietary and Speech Recommendations Dietitian Recommendations/Changes: Adjust to cardiac; consistent carbohydrate diet with 1500mL fluid restriction. Will monitor weight trends. At time of discharge recommend pt follow a cardiac; CCD with fluid restriction per MD. Discharge Plan Admission Admit Date/Time: 12/27/24 14:42 Attending Provider: Clifton Wells Primary Care Provider: Paulo Scott Consulting Providers: Clifton Wells; Pennie,Raul; Sandie Rodriguez; Jacquelin Odell; Adelina Silvestre; Shelia Campos; Keshav Elizondo Discharge Orders/Prescriptions Prescriptions: New acetaminophen 325 mg Tablet 650 mg PO Q6H PRN PRN (Reason: Pain 1-10 Or Fever) Qty: 0 0RF ipratropium-albuterol 0.5 mg-3 mg(2.5 mg base)/3 mL Solution For Nebulization 3 ml inhalation Q4HWA.RT PRNQty: 0 0RF sennosides-docusate sodium [Stimulant Laxative Plus] 8.6-50 mg Tablet 2 tab PO BID Qty: 0 0RF pantoprazole 40 mg Tablet,Delayed Release (Dr/Ec) 40 mg PO BID Qty: 0 0RF L.acidoph,saliva-B.bif-S.therm 175 mg Capsule 1 cap PO BID Qty: 0 0RF furosemide 40 mg Tablet 40 mg PO BIDLX Qty: 0 0RF insulin glargine [Lantus Solostar U-100 Insulin] 100 unit/mL (3 mL) insulin pen 15 unit subcut DAILY 30 Days Qty: 4.5 3RF Rx Instructions: Hold if glucose less than 130 mg/dl ondansetron HCl (PF) 4 mg/2 mL Solution 4 mg PO Q6H PRN (Reason: Nausea/Vomiting) Qty: 0 0RF Continued multivitamin Tablet 1 tab PO DAILY diazepam 5 mg tablet 5 mg PO QHS PRN (Reason: anxiety) cholecalciferol (vitamin D3) 125 mcg (5,000 unit) capsule 125 mcg PO DAILY levothyroxine 88 mcg tablet 88 mcg PO DAILY amlodipine 5 mg tablet 5 mg PO DAILY Azo Cranberry 250 mg tablet,chewable 250 mg PO DAILY gabapentin 100 MG capsule 300 mg PO QHS aspirin 81 MG tablet 81 mg PO DAILY@0800 lactulose 10 gram/15 mL solution 30 ml PO QHS Patient Comments: TAKE (30 mL) by mouth at bedtime for 90 days. Changed spironolactone 25 mg tablet 25 mg PO 1700 30 Days Qty: 30 0RF Referrals / Follow Up: Paulo Scott MD [Primary Care Provider, Internal Medicine] Disposition Disposition (needs filled in before D/C Order can be placed): Detention Facility 01/03/25 1254 <Electronically signed by Clifton Wells MD> Cosigner Signature (if applicable): CC: DESIGNER ARCHITECT-C Sandie Rodriguez; DESIGNER ARCHITECT-C Jacquelin Odell; Dr. Keshav Elizondo MD; Dr. Shelia Campos DO; Dr. Paulo Scott MD; Dr. Clifton Wells MD; LEONEL Esposito; Raul Casper DO ~ [facility] Work Phone: Discharge summary Author Clifton Wells [facility] Note Date/Time January 03, 2025 2 :26pm [facility] Medical Records Department [address] [place] [id number] Discharge Summary 01/03/25 1158 MR#: [id number] Acct: [id number] Name: KESHIA ROJAS Rep #:[id number] : 1950 74 From: Clifton Tony PCP: Dr. Paulo Scott MD Status:AD M IN Location: [place] [id number] Providers Date of Admission: 12/27/24 Date of Discharge: 01/03/25 Primary Care Physician: Dr. Paulo Scott MD Consultations 12/27/24 15:21 Consult: Gastroenterology Routine Consulting Provider: [facility] Reason for Consult: GI bleed EMERGENT Consult: No MD Notified: Yes Date Notified: 12/27/24 Time Notified: 14:44 Method of Notification: ED Physician Initiated Reason For Visit: GI BLEED/ACUTE ANEMIA Diagnosis Discharge Diagnosis (1) GI bleed: Status: Acute Code(s): K92.2 - Gastrointestinal hemorrhage, unspecified Plan Patient is a 74-year-old lady who presented to the emergency department with abdominal pain with associated nausea and vomiting as well as melenic stools. Patient was found to be anemic with hemoglobin of 7.0 admitted to monitored bed for further management 1. Anemia ? Secondary to acute blood loss anemia suspected to be secondary to upper GI bleed exacerbated by the use of aspirin. Patient hemoglobin on admission was 7.0 patient was transfused with 1 unit PRBC started on Protonix drip after bolusadmitted to monitored bed H&H ordered consult placed to GI ? 12/29/2024; patient underwent EGD by Dr. Casper on 12/28/2024 findings and recommendations as below Impressions : - LA Grade C erosive esophagitis with bleeding. Biopsied. Treated with a heater probe. - Zakia-Quezada tear. Treated with a heater probe. - Hiatal hernia. - A fundoplication was found. The wrap appears loose. - No gross lesions in the entire stomach. - No gross lesions in the entire examined duodenum. Recommendations : -- Use Protonix (pantoprazole) 40 mg PO BID for 3 months. Patient hemoglobin down to 7.3 we will continue with monitoring. Repeated H&H at 1400 ? 12/31/2023; patient hemoglobin up to 7.9 01/01: H&H 8.3/25%. Platelet count 310. 01/02: H&H 8.7/26.9, better than she had 7.2 hemoglobin. 01/03 H&H improving. Patient had mild nausea no vomiting therefore IM Phenergangiven. Zofran and Compazine not effective. Had drowsiness after Phenergan and was monitored. Patient is doing well discussed with RN. Discharge to SNF. 2. Acute cystitis ? Patient urinalysis was abnormal and consistent with UTI started on ceftriaxone ? 12/29/2024; patient urine cultures so far positive for an alphahemolytic organism with greater than 100 K CFU and mixed gram-positive and gram-negative organisms with 25K-50K CFU final identification and sensitivities pending ? 12/30/2024; patient friend urine culture sensitivities reviewed positive for Aerococcus 01/01 on IV ceftriaxone 01/02: No leukocytosis. 01/03: Patient completed about 8 days of IV antibiotics. 3. Acute congestive heart failure?suspected heart failure with preserved ejection fraction ? Ordered 2D echo, proBNP. Patient started on diuretics placed on low-sodium diet in addition to fluid restriction and serial monitoring of electrolyte. Also ordered daily weights as well as strict input and output and discontinued patient IV fluids 12/31/2024; Had a good response to diuretic therapy and had a negative fluid balance of 4.7 L over the past 24 hours will continue with diuretic therapy was relaxing her fluid restriction per her request. 2D echo obtained did show normalLV size. Moderate concentric left ventricular hypertrophy. The left ventricular ejection fraction is 75 %.Left ventricular systolic function is normal. Resting LV gradient 4 mmHg.Valsalva LV gradient 47 mmHg. Plan is to continue with diuretic therapy for an additional day 01/01: Patient on room air, pulse ox 94%. Hypoxia resolved. 01/02: Repeat chest x-ray shows bibasilar atelectasis. Encouraged incentive spirometry and PEP. 01/03: Patient completed 7 days of IV ceftriaxone therefore discontinued 4. Peripheral arterial disease ? Patient is on antiplatelet held on admission 5. New onset diabetes mellitus type 2 ? Patient presented with hyperglycemia hemoglobin A1c ordered came back at 7.8. Subsequently placed on Accu-Cheks ACHS as well as 1800 ADA diet 6. Degenerative joint disease ? Pain meds as needed 7. Hepatosteatosis ? Consult was placed to GI on admission 8. Hypertension ? Blood pressure controlled, home medications continued with dose adjustment as needed 9. Mild intermittent asthma ? Currently not in exacerbation aerosol treatments as needed 10. GERD/history of Sarmiento's esophagus - Previous Robbie fundoplication; PPI as above 11. Hypothyroidism ? Patient is on levothyroxine home dose continued 12. Remote history of DVT ? Patient was treated appropriately 13. Class II obesity with BMI of 39.4 ? Complicating care weight loss advised 14. DVT prophylaxis ? Bilateral SCDs 15. Hypokalemia ? Corrected per protocol repeat labs ordered in a.m. to assess response to therapy 16. Atelectasis ? Did encourage the use of incentive spirometry 17. Physical deconditioning ? Requested for PT OT eval and social worker clinical to assist with discharge planning 18. 01/01: Patient has not moved bowels since admission. Senna S2 tablet twicedaily, MiraLAX ordered. Dulcolax also ordered 01/02: She did not had bowel movement yesterday. Dulcolax 20 mg 1 dose and soapsuds enema ordered 01/03: She had a bowel movement yesterday. She passed out once she was defecating and then another time she was trying to do physical therapy. Both were witnessed. No major injury. She recovered very quickly. Syncope possibledue to vasovagal reflex accompanied with physical deconditioning. Patient on Lasix 41 IV changed to oral. Orthostatic vitals ordered Discharge medication reconciliation done. Discharge follow-up instructions completed. Discharge process discussed with the patient and all questions wereanswered to patient's satisfaction. Follow with PCP in 1 to 2 weeks Total time spent, exact 35 minutes on discharge meds reconciliation, examination, coordination of care with nurses and ancillary staff, review of imaging and blood test and discussion with the patient on follow-up instructions. 12/27/24 11:23 Urine, Clean Catch Urine Culture - Final Aerococcus urinae Mixed Gram Pos & Gram Neg Org Laboratory Results 01/02/25 11:15: POC Glucose 237 H 01/02/25 12:20: POC Glucose 223 H 01/02/25 15:19: POC Glucose 209 H 01/02/25 20:39: POC Glucose 233 H 01/03/25 05:29: WBC 10.2, RBC 3.04 L, Hgb 8.9 L, Hct 28.1 L, MCV 92.4, MCH 29.3,MCHC 31.7 L, RDW Std Deviation 47.8 H, RDW Coeff of Ronnie 14.2, Plt Count 394, MPV9.3, Immature Gran % (Auto) 0.300, Neut % (Auto) 67.0, Lymph % (Auto) 16.9 L, [place] % (Auto) 8.0, Eos % (Auto) 7.1 H, Baso % (Auto) 0.7, Absolute Neuts (auto) 6.8, Absolute Lymphs (auto) 1.72, Nucleated RBC % 0, Sodium 136, Potassium 3.4, Chloride 95 L, Carbon Dioxide 30.9, Anion Gap 10, BUN 17, Creatinine 0.72, EstimCreat Clear Calc 67.93, Est GFR (MDRD) Non-Af 88, BUN/Creatinine Ratio 23.7 H, Glucose 158 H, Calcium 8.6 Laboratory Results 01/01/25 15:55: POC Glucose 208 H 01/01/25 21:39: POC Glucose 226 H 01/02/25 04:30: WBC 8.7, RBC 2.91 L, Hgb 8.7 L, Hct 26.9 L, MCV 92.4, MCH 29.9, MCHC 32.3, RDW Std Deviation 49.2 H, RDW Coeff of Ronnie 14.6, Plt Count 368, MPV 9.4, Immature Gran % (Auto) 0.700, Neut % (Auto) 58.6, Lymph % (Auto) 22.3, [place]% (Auto) 10.1 H, Eos % (Auto) 7.6 H, Baso % (Auto) 0.7, Absolute Neuts (auto) 5.1, Absolute Lymphs (auto) 1.93, Nucleated RBC % 0.2, Sodium 136, Potassium 3.5, Chloride 94 L, Carbon Dioxide 31.5, Anion Gap 10, BUN 21 H, Creatinine 0.84, Estim Creat Clear Calc 64.69, Est GFR (MDRD) Non-Af 73, BUN/Creatinine Ratio 25.0 H, Glucose 196 H, Calcium 8.9 01/02/25 06:46: POC Glucose 183 H Medications at Discharge Home Medications gabapentin 100 mg capsule 300 mg PO QHS PAIN 01/11/14 diazepam 5 mg tablet 5 mg PO QHS PRN anxiety 01/13/19 aspirin 81 mg tablet,delayed release 81 mg PO DAILY@0800 HEART 02/09/19 multivitamin 1 tab PO DAILY SUPPLEMENT 04/08/19 cholecalciferol (vitamin D3) 125 mcg (5,000 unit) capsule 125 mcg PO DAILY SUPPLEMENT 10/11/19 levothyroxine 88 mcg tablet 88 mcg PO DAILY THYROID 07/26/22 cranberry fruit concentrate 250 mg chewable tablet (Azo Cranberry) 250 mg PO DAILY URINARY HEALTH 01/31/23 amlodipine 5 mg tablet 5 mg PO DAILY HTN 10/15/24 lactulose 10 gram/15 mL oral solution 30 ml PO QHS 12/27/24 L.acidophil,salivari-Bifido bifidum-Strep thermoph 175 mg capsule 1 cap PO BID #0 caps 01/03/25 acetaminophen 325 mg tablet 650 mg (2 x 325 mg) PO Q6H PRN PRN Pain 1-10 Or Fever #0 tabs 01/03/25 furosemide 40 mg tablet 40 mg PO BIDLX #0 tabs 01/03/25 insulin glargine 100 unit/mL (3 mL) subcutaneous pen (Lantus Solostar U-100 Insulin) 15 unit (0.15 mL) subcut DAILY 1 month #4.5 mL 01/03/25 ipratropium 0.5 mg-albuterol 3 mg (2.5 mg base)/3 mL nebulization soln 3 ml inhalation Q4HWA.RT PRN #0 mL 01/03/25 ondansetron HCl (PF) 4 mg/2 mL injection solution 4 mg (2 mL) PO Q6H PRN Nausea/Vomiting #0 mL 01/03/25 pantoprazole 40 mg tablet,delayed release 40 mg PO BID #0 tabs 01/03/25 sennosides 8.6 mg-docusate sodium 50 mg tablet (Stimulant Laxative Plus) 2 tab PO BID #0 tabs 01/03/25 spironolactone 25 mg tablet 25 mg PO 1700 HTN 30 days #30 tabs 01/03/25 Physical Exam Narrative Seen and examined. She had good bowel movement yesterday. While defecating she passed out but wokeup good. While she was having physical therapy, she passed out yesterday. In the morning she was good but later on days she had mild nausea and vomiting, got better with IV Phenergan Physical exam General: Alert, Oriented x3, Cooperative. BMI 34.9 kg/m? HEENT: Atraumatic, PERRLA, EOMI, Normocephalic. Oral: No Gingival or Mucosal Lesions/ Ulcerations Neck: Supple, No JVD, Negative Carotid Bruits Chest wall/Lungs: Air entry diminished in bilateral lung bases. No crepitation/rhonchi Cardiovascular: Regular rate and rhythm, Normal S1,S2, No M/G/R Abdomen: Bowel Sounds Present, Soft, Non Tender, Non-Distended : No dysuria. No renal angle tenderness. No suprapubic tenderness. Extremities: No pitting edema, Capillary Refill Less than 3 Seconds Skin: No rashes, No breakdown Musculoskeletal: Muscle strength 4/5 at both knees and hip, left more than right. ROM decreased. Physically deconditioned. Neurological: Cranial nerves II-XII grossly intact, DTR 2+/4. No acute focal neurological deficit. Psych/Mental Status: Normal Affect, Appropriate. Weight / BMI Weight Weight: 199 lb Body Mass Index (BMI) 34.1 ABG / Lab / Microbiology Data 01/03/25 05:29 01/03/25 05:29 Laboratory: Laboratory Results - last 24 hr 01/02/25 15:19: POC Glucose 209 H 01/02/25 20:39: POC Glucose 233 H 01/03/25 05:29: WBC 10.2, RBC 3.04 L, Hgb 8.9 L, Hct 28.1 L, MCV 92.4, MCH 29.3,MCHC 31.7 L, RDW Std Deviation 47.8 H, RDW Coeff of Ronnie 14.2, Plt Count 394, MPV9.3, Immature Gran % (Auto) 0.300, Neut % (Auto) 67.0, Lymph % (Auto) 16.9 L, [place] % (Auto) 8.0, Eos % (Auto) 7.1 H, Baso % (Auto) 0.7, Absolute Neuts (auto) 6.8, Absolute Lymphs (auto) 1.72, Nucleated RBC % 0, Sodium 136, Potassium 3.4, Chloride 95 L, Carbon Dioxide 30.9, Anion Gap 10, BUN 17, Creatinine 0.72, EstimCreat Clear Calc 67.93, Est GFR (MDRD) Non-Af 88, BUN/Creatinine Ratio 23.7 H, Glucose 158 H, Calcium 8.6 01/03/25 11:28: POC Glucose 221 H Microbiology: Microbiology 12/27/24 11:23 Urine, Clean Catch Urine Culture - Final Aerococcus urinae Mixed Gram Pos & Gram Neg Org 12/27/24 11:23 Stool Stool Occult Blood (PIA) - Final Occult Blood Positive D/C Instructions DC O2, CPAP, BIPAP Needs Home O2 Discharge instructions: No Meaningful Use Info Meaningful Use Meaningful Use Diagnoses (Choose all that apply): None applicable Discharge Plan Admission Admit Date/Time: 12/27/24 14:42 Attending Provider: Clifton Wells Primary Care Provider: Paulo Scott Consulting Providers: Clifton Wells; Raul Casper; Sandie Rodriguez; Jacquelin Odell; Adelina Silvestre; Shelia Campos; Keshav Elizondo Discharge Orders/Prescriptions Prescriptions: New acetaminophen 325 mg Tablet 650 mg PO Q6H PRN PRN (Reason: Pain 1-10 Or Fever) Qty: 0 0RF ipratropium-albuterol 0.5 mg-3 mg(2.5 mg base)/3 mL Solution For Nebulization 3 ml inhalation Q4HWA.RT PRNQty: 0 0RF sennosides-docusate sodium [Stimulant Laxative Plus] 8.6-50 mg Tablet 2 tab PO BID Qty: 0 0RF pantoprazole 40 mg Tablet,Delayed Release (Dr/Ec) 40 mg PO BID Qty: 0 0RF L.acidoph,saliva-B.bif-S.therm 175 mg Capsule 1 cap PO BID Qty: 0 0RF furosemide 40 mg Tablet 40 mg PO BIDLX Qty: 0 0RF insulin glargine [Lantus Solostar U-100 Insulin] 100 unit/mL (3 mL) insulin pen 15 unit subcut DAILY 30 Days Qty: 4.5 3RF Rx Instructions: Hold if glucose less than 130 mg/dl ondansetron HCl (PF) 4 mg/2 mL Solution 4 mg PO Q6H PRN (Reason: Nausea/Vomiting) Qty: 0 0RF Continued multivitamin Tablet 1 tab PO DAILY diazepam 5 mg tablet 5 mg PO QHS PRN (Reason: anxiety) cholecalciferol (vitamin D3) 125 mcg (5,000 unit) capsule 125 mcg PO DAILY levothyroxine 88 mcg tablet 88 mcg PO DAILY amlodipine 5 mg tablet 5 mg PO DAILY Azo Cranberry 250 mg tablet,chewable 250 mg PO DAILY gabapentin 100 MG capsule 300 mg PO QHS aspirin 81 MG tablet 81 mg PO DAILY@0800 lactulose 10 gram/15 mL solution 30 ml PO QHS Patient Comments: TAKE (30 mL) by mouth at bedtime for 90 days. Changed spironolactone 25 mg tablet 25 mg PO 1700 30 Days Qty: 30 0RF Referrals / Follow Up: Paulo Scott MD [Primary Care Provider, Internal Medicine] Raul Casper DO [Med Staff - Active Staff, Gastroenterology] Adelina Silvestre PA [Med Staff - Adv Practice Prof, Gastroenterology] - Within 1 Month Disposition Disposition (needs filled in before D/C Order can be placed): Detention Facility Charges/Coding Visit Charges Inpatient E&M: 17715 Disch Hosp >30min 01/03/25 1426 <Electronically signed by Clifton Wells MD> Cosigner Signature (if applicable): CC: Dr. Paulo Scott MD; Dr. Clifton Wells MD~ Signed [facility] Work Phone: Evaluation note* Diagnosis Family history of colon cancer Family history of malignant neoplasm of gastrointestinal tract Family history of gene mutation Personal history of colonic polyps documented in this encounter [facility] note* Diagnosis Encounter for screening mammogram for breast cancer documented in this encounter [facility] note* Diagnosis Acquired hypothyroidism Unspecified hypothyroidism documented in this encounter [facility] note* Diagnosis Onset Date Resolution Status Asthma chronic Chronic cough chronic [facility] Work Phone: Evaluation note* Diagnosis Acquired hypothyroidism- Primary Unspecified hypothyroidism IFG (impaired fasting glucose) Impaired fasting glucose Vitamin D deficiency Unspecified vitamin D deficiency Essential hypertension Unspecified essential hypertension Vertigo Dizziness and giddiness OAB (overactive bladder) Hypertonicity of bladder Dysphagia, unspecified type Anxiety Anxiety state, unspecified [facility] Diagnosis Chronic bilateral low back pain with bilateral sciatica Acquired hypothyroidism Unspecified hypothyroidism [facility]* Diagnosis Vertigo Dizziness and giddiness Anxiety Anxiety state, unspecified [facility]* Diagnosis UTI symptoms- Primary Other symptoms involving urinary system [facility]* Diagnosis Vertigo Dizziness and giddiness Anxiety Anxiety state, unspecified documented in this encounter [facility] note* Diagnosis Onset Date Resolution Status Asthma chronic [facility] Work Phone: Evaluation note* Diagnosis Submandibular lymphadenopathy- Primary Enlargement of lymph nodes Primary hypertension Unspecified essential hypertension Throat pain documented in this encounter [facility] note* Diagnosis Onset Date Resolution Status Asthma chronic Bilateral leg pain acute Difficulty in walking acute Dizziness acute [facility] Work Phone: Evaluation note* Diagnosis Vertigo Dizziness and giddiness Anxiety Anxiety state, unspecified documented in this encounter [facility] note* Diagnosis Pain in both lower extremities- Primary Bilateral leg edema Edema Imbalance Abnormality of gait Cold sore Herpes simplex without mention of complication [facility]* Diagnosis Vertigo Dizziness and giddiness Anxiety Anxiety state, unspecified documented in this encounter [facility] note* Diagnosis Rash- Primary Rash and other nonspecific skin eruption Intertrigo Other specified erythematous condition [facility]* Diagnosis Vertigo Dizziness and giddiness Anxiety Anxiety state, unspecified [facility]* Diagnosis Onset Date Resolution Status Atherosclerotic heart diseas e of [place] coronary artery without angina pectoris chronic Essential hypertension chron ic Barretts esophagus acute Abdominal pain chronic Chronic cough chronic [facility] Work Phone: Evaluation note* Diagnosis Vertigo Dizziness and giddiness Anxiety Anxiety state, unspecified [facility]* Diagnosis Encounter for screening mammogram for breast cancer [facility]* Diagnosis Chronic bilateral low back pain with bilateral sciatica [facility] Diagnosis Acquired hypothyroidism- Primary Unspecified hypothyroidism Essential hypertension Unspecified essential hypertension Chronic bilateral low back pain with bilateral sciatica Elevated glucose Other abnormal glucose Mixed hyperlipidemia Encounter for immunization Need for other specified prophylactic vaccination against single bacterial disease Vertigo Dizziness and giddiness Anxiety Anxiety state, unspecified [facility] Diagnosis Acquired hypothyroidism- Primary Unspecified hypothyroidism Mixed hyperlipidemia Essential hypertension Unspecified essential hypertension Anemia, unspecified type IFG (impaired fasting glucose) Impaired fasting glucose Medication monitoring encounter Encounter for therapeutic drug monitoring [facility] Diagnosis Onset Date Resolution Status Atherosclerotic heart diseas e of [place] coronary artery without angina pectoris chronic Essential hypertension chron ic Abdominal pain chronic Barretts esophagus chronic Asthma chronic [facility] Work Phone: Evaluation note* Diagnosis Vertigo Dizziness and giddiness Anxiety Anxiety state, unspecified documented in this encounter [facility] note* Diagnosis Onset Date Resolution Status Abdominal pain chronic Barretts esophagus chronic Asthma chronic [facility] Work Phone: Evaluation note* Diagnosis Strain of lumbar region, subsequent encounter- Primary Chronic bilateral low back pain with bilateral sciatica [facility] Diagnosis Acute pain of both knees- Primary Acute pain of both knees [facility] Diagnosis Acquired hypothyroidism Unspecified hypothyroidism [facility] Diagnosis Vertigo Dizziness and giddiness Anxiety Anxiety state, unspecified [facility] Diagnosis External hemorrhoid- Primary External hemorrhoids without mention of complication [facility] Diagnosis DDD (degenerative disc disease), lumbar- [...] use of medication [facility] Diagnosis Encounter for screening mammogram for breast cancer [facility] Diagnosis Acquired hypothyroidism Unspecified hypothyroidism Chronic bilateral low back pain with bilateral sciatica [facility] Diagnosis Acute pain of both knees [facility] Diagnosis Acute pain of right shoulder History of recent fall [facility] Diagnosis Trigger middle finger of right hand Trigger finger (acquired) Ganglion cyst Ganglion, unspecified Mass of wrist, right Mass of finger, right [facility] Diagnosis Back pain of thoracolumbar region Lumbago Contusion of middle back wall of thorax, sequela Lumbar contusion, sequela [facility]* Diagnosis Vertigo Dizziness and giddiness Anxiety Anxiety state, unspecified [facility] Diagnosis Acute cough- Primary Acquired hypothyroidism Unspecified hypothyroidism Spinal stenosis of lumbar region, unspecified whether neurogenic claudication present Primary hypertension Unspecified essential hypertension Mixed hyperlipidemia Vitamin D deficiency Unspecified vitamin D deficiency Diet-controlled diabetes mellitus (HCC) Screening for depression [facility] Diagnosis Chronic bilateral low back pain with bilateral sciatica documented [facility] Diagnosis Chronic bilateral low back pain with bilateral sciatica [facility] Diagnosis Vertigo Dizziness and giddiness Anxiety Anxiety state, unspecified [facility] Diagnosis Encounter for screening mammogram for breast cancer [facility] Diagnosis Acquired hypothyroidism- Primary Unspecified hypothyroidism Primary hypertension Unspecified essential hypertension Mixed hyperlipidemia Chronic pain of left knee Pain in joint, lower leg Chronic bilateral low back pain with bilateral sciatica Encounter for immunization Need for other specified prophylactic vaccination against single bacterial disease [facility] Diagnosis Vertigo Dizziness and giddiness Anxiety Anxiety state, unspecified [facility] Diagnosis Acquired hypothyroidism Unspecified hypothyroidism [facility] Diet-controlled diabetes mellitus (HCC)- Primary Essential hypertension Unspecified essential hypertension Mixed hyperlipidemia Acquired hypothyroidism Unspecified hypothyroidism Obesity, Class II, BMI 35-39.9 Obesity, unspecified Encounter for therapeutic drug monitoring Vitamin D deficiency Unspecified vitamin D deficiency Anxiety Anxiety state, unspecified Bursitis of other bursa of left hip [facility] Diagnosis Diet-controlled diabetes mellitus (HCC) [facility] Diagnosis Vertigo Dizziness and giddiness Anxiety Anxiety state, unspecified [facility] Author Raul Casper [facility] April 23, 2023 8:31am Note Date/Time April 23, 2023 8 :31am [facility] Medical Records Department [address] [place] [address] History & Physical Exam 04/23/23 0830 MR#: [id number] Acct: [id number] Name: KESHIA ROJAS Rep #:[id number] : 1950 73 From: Raul Casper DO PCP: Dr. Paulo Scott MD Status:[facility] Location: [place] [address] History and Physical Date of Admission: 04/23/23 73 F who presents to the office today for [facility] ED 08.05.22. PMH anemia, Sarmiento?s esophagus, [...] without pertinent abnormality ? CRP H5.65 Contact 10.16.22 with bloodwork results. She is working at [...] Appearance: average body habitus and well nourished [facility] Head: normal to inspection Ears: hearing grossly [...] Affect: normal affect Quality Reporting Tobacco Screening ([facility] 138) Smoking Status: Never smoker Assessment and [...] clinical changes since date of exam. 04/23/23 0841 <Electronically signed by Raul Casper DO> Cosigner Signature (if applicable): CC: Dr. Paulo Scott MD; Raul Casper DO~ Signed [facility] Work Phone: History and physical note Author Shelia Campos [facility] Note Date/Time December 27, 2024 3 :51pm [facility] Medical Records Department [address] [place] [address] H&P Exam - Hospitalist 12/27/24 1440 MR#: [id number] Acct: [id number] Name: KESHIA ROJAS Rep #:[id number] : 1950 74 From: Shelia Campos DO PCP: Dr. Paulo Scott MD Status:AD M IN Location: [facility] [id number]- [id number] HPI - General General Date of Admission: 12/27/24 Date of Service: 12/27/24 Chief Complaint: Melena/abdominal pain HPI Narrative KESHIA ROJAS, is a 74 F who presented to the emergency department [facility] on 12/28/2019 for chief complaint of abdominal pain and dark tarry stools. Patient states her symptoms started on Friday night. She been having some lower abdominal pain, some nausea, vomiting without coffee grounds, and dark melanotic stools with lightheadedness and shortness of breath with exertion. She denies any chest pain. She has a family history of colon cancer and follows with Dr. Friend she is on aspirin 81 mg daily. She states she has had 7 colonoscopies in 7 EGD's previously she has a remote history of Robbie fundoplication. She was in the emergency department on 12/05/2024 and found to have a urinary tract infection was treated Keflex at that time. Her hemoglobin then was 14.5. Vital signs at presentation showed temperature of 97.6, heart rate 91, blood pressure is 151/86 and pulse ox was 100% on room air. CBC showed mild leukocytosis with a white count of 12 she did not have a differential. Her hemoglobin was now 7 from 14.5 about 3 weeks ago. Coags were normal. Chemistrypanel showed elevated BUN/creatinine ratio with a BUN of 23 and serum creatinineof 0.68. At her previous ED visit her BUN was 15 and her creatinine was 0.89. She had a mild lactic acidosis when she came in at 2.6. Her blood sugar is markedly elevated at 378. She does not appear to be on any medication for diabetes. Her UA is somewhat suggestive of infection with positive leuk esterase, white cells and 1+ bacteria. CT abdomen pelvis shows diffuse fatty liver infiltration, findings suggestive of pancreatitis in the region of the head of the pancreatitis however the patient is asymptomatic with regards to abdominal pain in the epigastrium or left upper quadrant and small right renal cyst. Case was discussed with Dr. Casper with whom she follows on a regular basis. The patient was placed on Protonix drip and will be admitted to PCU for an expected hospitalization greater than 2 midnights. [facility] Medical History Loss of hearing Wears glasses Wears partial dentures Post-menopausal Anxiety Thyroid disease Ambulates with cane Urinary incontinence Difficulty swallowing Gastric reflux Non-smoker History of echocardiogram History of stress test Seasonal allergies History of edema Cardiology follow-up encounter History of cataract Ganglion cyst Atherosclerotic heart disease of [place] coronary artery without angina pectoris Cholelithiasis with [...] 100 mg capsule 300 mg PO QHS PAIN 01/11/14 12/26/24 History diazepam 5 mg tablet 5 mg PO QHS PRN anxiety 12/1712/26/24 History aspirin 81 mg tablet,delayed 81 mg PO DAILY@0800 HEART 02/09/19 12/26/24 History release multivitamin 1 tab PO DAILY SUPPLEMENT 12/26/24 History cholecalciferol (vitamin D3) 125 125 mcg PO DAILY SUPP LEMENT 10/11/19 05/05/22 History mcg (5,000 unit) capsule inhalational spacing device #1 ea 10/11/19 Unknown Rx (BreatheRite MDI Spacer) levothyroxine 88 mcg tablet 88 mcg PO DAILY THYROID 12/27/24 History cranberry fruit concentrate 250 mg 250 mg PO DAILY URI Reocar 01/31/23 12/27/24 History chewable tablet (Azo Cranberry) spironolactone 25 mg tablet 25 mg PO 1700 PRN HTN 07/1712/26/24 History amlodipine 5 mg tablet 5 mg PO DAILY HTN 10/15/24 1 History lactulose 10 gram/15 mL oral 30 ml PO QHS 12/27/2403/10 History solution Allergy/AdvReac Type Severity Reaction Status Date / Time latex Allergy Unknown PT UNSURE Verified 12/27/24 09:55 OF REACTION adhesive Allergy Unknown Verified 12/27/24 09:55 benzocaine (From Cetacaine) Allergy Unknown Verified 12/27/24 09:55 butamben (From Cetacaine) Allergy Vomiting Verified 12/27/24 09:55 cortisone (Cortisone) Allergy Unknown Verified 12/27/24 09:55 dipyridamole (From Aggrenox) Allergy Unknown Verified 12/27/24 09:55 lansoprazole (From Prevacid) Allergy Unknown Verified 12/27/24 09:55 meclizine Allergy Unknown Verified 12/27/24 09:55 methylprednisolone acetate Allergy Angioedema Verified 12/27/24 09:55 (From Depo-Medrol) metoprolol Allergy Unknown Verified 12/27/24 09:55 omeprazole (From Prilosec) Allergy Unknown Verified 12/27/24 09:55 omeprazole magnesium (From Allergy Unknown Verified 12/27/24 09:55 Prilosec) oxybutynin chloride (From Allergy Unknown Verified 12/27/24 09:55 Ditropan) povidone-iodine (From Allergy Unknown Verified 12/27/24 09:55 Betadine) sulfamethoxazole (From Allergy Unknown Verified 12/27/24 09:55 Bactrim) tegaserod (From Zelnorm) Allergy Hives Verified 12/27/24 09:55 tegaserod hydrogen maleate Allergy Unknown Verified 12/27/24 09:55 (From Zelnorm) tetracaine (From Cetacaine) Allergy Unknown Verified 12/27/24 09:55 tolterodine tartrate (From Allergy Unknown Verified 12/27/24 09:55 Detrol) trimethoprim (From Bactrim) Allergy Unknown Verified 12/27/24 09:55 lisinopril AdvReac Intermediate Angioedema Verified 12/27/24 09:55 adhesive tape AdvReac Rash Verified 12/27/24 09:55 codeine AdvReac Unknown Verified 12/27/24 09:55 mirabegron (From Myrbetriq) AdvReac Other Verified 12/27/24 09:55 tizanidine AdvReac Other Verified 12/27/24 09:55 vaccine adjuvant system, AdvReac Rash Verified 12/27/24 09:55 AS01B liposomal (From Shingrix (PF)) varicella-zoster virus AdvReac Rash Verified 12/27/24 09:55 glycoprotein E, recombinant (From Shingrix (PF)) Family [...] hernia repair History of tonsillectomy Social History housing: house Smoking Status: Never smoker alcohol intake: never substance use type: does not use caffeine: Yes Type: coffee Number of servings: 2 what type of physical activity do you participate in: walking frequency: 3-4 times per week ROS Constitutional Constitutional: Reports fatigue and weakness; Denies anorexia, change in weight,chills, fever(s), malaise, night sweats or other Eyes Eyes: Denies blurry vision, change in eye color, change in vision, discharge from eye(s), double vision, erythema, eye pain, loss of vision or other ENT HEENT: Denies abnormal hearing, dysphagia, ear pain, epistaxis, headache(s), hearing loss, nasal congestion, nasal discharge, post nasal drip, sinus pressure, sore throat or other Cardiovascular Cardiovascular: Denies chest pain, claudication, dyspnea on exertion, edema, lightheadedness, orthopnea, palpitations, paroxysmal nocturnal dyspnea, rapid heart rate, syncope or other Respiratory/Chest Respiratory/Chest: Reports shortness of breath with exertion and wheezing; Denies cough, dyspnea, excessive phlegm production, hemoptysis, productive cough, shortness of breath at rest or other Gastrointestinal Gastrointestinal: Reports abdominal pain, melena, nausea and vomiting; Denies coffee ground emesis, constipation, diarrhea, dyspepsia, hematemesis, hematochezia, loose stools or other Genitourinary Genitourinary: Reports urinary frequency; Denies burning urination, difficulty urinating, dysuria, hematuria, nocturia, urinary hesitancy, urinary incontinence, urinary urgency or other Musculoskeletal Musculoskeletal: Denies arthralgias, back pain, joint pain, joint stiffness, joint swelling, myalgias, neck pain or other Neurologic Neurologic: Denies abnormal gait, abnormal speech, confusion, disequilibrium, dizziness, focal weakness, headache(s), numbness, paresthesias, seizure-like activity, seizures, syncope, tingling, tremor(s) or other Psychiatric Psychiatric: Denies anxiety, depression, homicidal ideation, suicidal ideation or other Endocrine Endocrinology: Reports polydipsia and polyuria; Denies change in body appearance, cold intolerance, excessive sweating, heat intolerance or other Hematologic/Lymphatic Hematologic/Lymphatic: Denies anemia, easy bleeding, easy bruising, lymphadenopathy or other Allergic/Immunologic Allergic/Immunologic: Denies rhinitis, hives, eczemia, asthma or other Vital Signs Vital Signs Vital Signs: 12/27/24 09:52 12/27/24 11:47 12/27/24 13:17 Temperature 97.6 F L 98.0 F Temperature Source Temporal Oral Pulse Rate 91 81 75 Respiratory Rate 16 17 18 Blood Pressure 151/86 H 119/55 L Blood Pressure Mean 107 76 Blood Pressure Source Monitor Blood Pressure Position Supine Blood Pressure Location Right Arm Pulse Ox 100 97 96 Oxygen Delivery Method Room Air Room Air 12/27/24 13:32 12/27/24 14:21 Temperature 98.1 F 98.2 F Temperature Source Oral Oral Pulse Rate 74 73 Respiratory Rate 13 16 Blood Pressure 111/57 L 126/62 H Blood Pressure Mean 75 83 Blood Pressure Source Monitor Monitor Blood Pressure Position Semi-Fowlers Semi-Fowlers Blood Pressure Location Pulse Ox 94 99 Oxygen Delivery Method Room Air Room Air Weight Weight: 100.7 kg Body Mass Index (BMI) 38.1 Physical Exam Const alert, oriented x3, no apparent distress and well nourished; Negative for average body habitus or healthy appearing Constitutional Narrative: Obese, elderly, white female, sitting up in bed, spouse at bedside, nursing at bedside, appears comfortable, nontoxic General Appearance: cooperative HEENT normocephalic, head/scalp atraumatic, hearing grossly normal bilaterally and moist oral mucous membranes HEENT Narrative: Mallampati 4, no thrush Eyes Negative for conjunctivae normal Eyes Narrative: No scleral icterus, conjunctival pallor bilaterally Neck no lymphadenopathy and supple Neck Narrative: Neck is short and thick, trachea midline Resp normal respiratory effort, no retractions, no use of accessory muscles and clearto auscultation bilaterally Auscultation: Negative for rales, rhonchi or wheezes Cardio regular rate, regular rhythm, S1 normal heart sound, S2 normal heart sound, no murmurs, no rub, no gallops and no clicks GI normal to inspection, nondistended, normoactive bowel sounds, soft to palpation and non-tender Extremity no clubbing, cyanosis or edema Extremity Narrative: 2+ pedal and radial pulses bilaterally Skin skin turgor normal, no jaundice, no petechiae and no mottling Skin Narrative: Skin is pale Neuro moves all extremities and no focal motor deficits Speech: speech normal Psych affect normal Psych Narrative: very pleasant eye contact is good patient interacts appropriately Results Lab / Micro Data 12/27/24 10:10 12/27/24 10:10 Labs: Laboratory Results - last 24 hr 12/27/24 10:10: WBC 12.0 H, RBC 2.20 L, Hgb 7.0 L, Hct 21.2 L, MCV 96.4, MCH 31.8, MCHC 33.0, RDW Std Deviation 47.8 H, RDW Coeff of Ronnie 14.1, Plt Count 251,MPV 10.2, Immature Gran % (Auto) 0.600, Neut % (Auto) 67.3, Lymph % (Auto) 21.4,[place] % (Auto) 6.4, Eos % (Auto) 3.8, Baso % (Auto) 0.5, Absolute Neuts (auto) 8.1 H, Absolute Lymphs (auto) 2.57, Nucleated RBC % 0.2, Sodium 135, Potassium 3.8, Chloride 103, Carbon Dioxide 23.0, Anion Gap 10, BUN 23 H, Creatinine 0.68 L, Estim Creat Clear Calc 71.20, Est GFR (MDRD) Non-Af 91, BUN/Creatinine Ratio 34.2 H, Glucose 378 H, Calcium 8.5, Total Bilirubin 0.23, AST 18, ALT 20, Alkaline Phosphatase 52, Total Protein 5.6 L, Albumin 3.4, Globulin 2.2, Albumin/Globulin Ratio 1.5, Lipase 25, Blood Type A POSITIVE, Antibody Screen NEGATIVE, Crossmatch See Detail 12/27/24 11:03: PT 13.6, INR 1.0, APTT 22.6 L, Lactic Acid 2.6 H* 12/27/24 11:23: Urine Color Yellow, Urine Clarity Sl. Cloudy, Urine pH 6.0, Ur Specific [place] 1.020, Urine Protein 15 H, Urine Glucose (UA) 1000 H, Urine Ketones Negative, Urine Occult Blood Negative, Urine Nitrite Negative, Urine Bilirubin Negative, Urine Urobilinogen Normal, Ur Leukocyte Esterase 100 H, Urine RBC 0-5 SEEN, Urine WBC 5-10 SEEN, Ur Squamous Epith Cells 5-10 SEEN, Urine Bacteria 1+, Urine Mucus RARE Micro: Microbiology 12/27/24 11:23 Stool Stool Occult Blood (PIA) - Final Occult Blood Positive Imaging Radiology Impression Abdomen/Pelvis CT 12/27/24 11:12 IMPRESSION: Diffuse fatty infiltration of the liver. Findings suggestive of pancreatitis in the region of the head of the pancreas. Small right renal cysts. Status post subtotal gastrectomy. Reading Location: [facility] Assessment & Plan Assessment/Plan (1) GI bleed: (2) Acute anemia: (3) Lactic acidosis: (4) Adverse effects of medication: (5) Leukocytosis: (6) Abnormal urinalysis: (7) Hyperglycemia: PLAN: Plan Acute anemia - 3 weeks ago hemoglobin was 14.5 with a hemoglobin of 7 today - Cycle hemoglobin - Elevated BUN to creatinine ratio so suspect upper GI bleed - Protonix bolus and drip initiated - Clear liquids with no reds and then n.p.o. after midnight - Transfuse 1 unit packed red blood cells -Hold aspirin - GI consultation-Dr. Casper aware per ED GI bleed - Suspect upper with elevated BUN/creatinine ratio - Protonix drip - Transfusion as above - Clear liquids without reds and then n.p.o. 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 and restart when appropriate - Continue GI follow-up Nonobstructive CAD/essential hypertension/PVD - Mild CAD per cath in 2006 - Hold aspirin - Hold home Aldactone for now - Continue home amlodipine Neuropathy - Continue home gabapentin - patient states that this has been problematic for about the last year - Blood sugars are markedly elevated and suspect patient is diabetic but is undiagnosed Asthma - On no chronic medication at this time - Had previously been on budesonide - Has not seen pulmonary medicine in over a year GERD/history of Sarmiento's esophagus - Previous Robbie fundoplication - PPI as above History of DVT - Remote - Not currently anticoagulated Obesity - BMI 36.4 - Complicates treatment, prognosis, outcomes - Suspect patient may have some baseline CARLINE and should have an outpatient polysomnography DVT prophylaxis - SCDs - Chemoprophylaxis contraindicated due to current GI bleed CODE STATUS - Full code as verified at the time of admission Charges/Coding Visit Charges Inpatient E&M: 85824 Init Hosp L3 12/27/24 1551 <Electronically signed by Shelia Campos DO> Cosigner Signature (if applicable): CC: Dr. Shelia Campos DO; Dr. Paulo Scott MD~ Signed [facility] Work Phone: Hospital Discharge instructions Additional Instructions Please be mindful of your constipation and note that all pain medication is constipating. Only take the pain medication [facility] Work Phone: Hospital Discharge instructionsAdditional Instructions Your urine was sent for culture, follow up on these results. Drink lots of fluids at home. Your evaluation in the Emergency Department did not reveal any acute reason for admission. However, I want to emphasize that you may be early in the course of a disease process or illness even if it is not present. For this reason you should follow-up within 24 hours for reevaluation with either your primary care physician or if necessary back here in the Emergency Department. You should return to the Emergency Department immediately if your symptoms worsen or new symptoms develop.[facility] Work Phone: Hospital Discharge instructionsAdditional Instructions [facility]: [facility] Work Phone: Progress note Author Keshav Elizondo [facility] Note Date/Time December 28, 2024 1 0:15am [facility] Medical Records Department [address] [place] [address] Progress Note - Hospitalist 12/28/24 0819 MR#: [id number] Acct: [id number] Name: KESHIA ROJAS Rep #:[id number] : 1950 74 From: Keshav Elizondo MD PCP: Dr. Paulo Scott MD Status:AD M IN Location: [place] [address] Reason for Visit Chief Complaint: Melena/abdominal pain Subjective Subjective Patient is a 74-year-old lady who presented to the emergency department with abdominal pain with associated nausea and vomiting as well as melenic stools. Patient was found to be anemic with hemoglobin of 7.0 admitted to monitored bed for further management Objective Data Objective Data Vital Signs: Vital Signs Temp Pulse Resp BP Pulse Ox O2 Del Method 98.6 F 84 18 125/60 H 93 Room Air 12/28/24 04:50 12/28/24 04:50 12/28/24 04:50 12/28/24 04:50 12/28/24 04:50 12/28/24 04:50 Oxygen Delivery Method Room Air Weight: 104.1 kg Body Mass Index (BMI) 39.4 Intake & Output: Intake and Output for Last 24 Hours 12/26/24 12/27/24 12/28/24 23:59 23:59 23:59 Intake Total 582.42 / 582.42 Balance 582.42 / 582.42 Lab / Micro Data 12/28/24 04:10 12/28/24 04:10 Labs: Laboratory Results - last 24 hr 12/27/24 10:10: WBC 12.0 H, RBC 2.20 L, Hgb 7.0 L, Hct 21.2 L, MCV 96.4, MCH 31.8, MCHC 33.0, RDW Std Deviation 47.8 H, RDW Coeff of Ronnie 14.1, Plt Count 251,MPV 10.2, Immature Gran % (Auto) 0.600, Neut % (Auto) 67.3, Lymph % (Auto) 21.4,[place] % (Auto) 6.4, Eos % (Auto) 3.8, Baso % (Auto) 0.5, Absolute Neuts (auto) 8.1 H, Absolute Lymphs (auto) 2.57, Nucleated RBC % 0.2, Sodium 135, Potassium 3.8, Chloride 103, Carbon Dioxide 23.0, Anion Gap 10, BUN 23 H, Creatinine 0.68 L, Estim Creat Clear Calc 71.20, Est GFR (MDRD) Non-Af 91, BUN/Creatinine Ratio 34.2 H, Glucose 378 H, Hemoglobin A1c 7.8 H, Calcium 8.5, Total Bilirubin 0.23, AST 18, ALT 20, Alkaline Phosphatase 52, Total Protein 5.6 L, Albumin 3.4, Globulin 2.2, Albumin/Globulin Ratio 1.5, Lipase 25, Blood Type A POSITIVE, Antibody Screen NEGATIVE, Crossmatch See Detail 12/27/24 11:03: PT 13.6, INR 1.0, APTT 22.6 L, Lactic Acid 2.6 H* 12/27/24 11:23: Urine Color Yellow, Urine Clarity Sl. Cloudy, Urine pH 6.0, Ur Specific [place] 1.020, Urine Protein 15 H, Urine Glucose (UA) 1000 H, Urine Ketones Negative, Urine Occult Blood Negative, Urine Nitrite Negative, Urine Bilirubin Negative, Urine Urobilinogen Normal, Ur Leukocyte Esterase 100 H, Urine RBC 0-5 SEEN, Urine WBC 5-10 SEEN, Ur Squamous Epith Cells 5-10 SEEN, Urine Bacteria 1+, Urine Mucus RARE 12/27/24 15:30: Lactic Acid 2.0 12/27/24 16:40: Hgb 8.2 L, Hct 25.4 L 12/27/24 17:08: POC Glucose 190 H 12/27/24 21:31: Hgb 7.9 L, Hct 24.2 L 12/27/24 23:48: POC Glucose 177 H 12/28/24 04:10: WBC 9.5, RBC 2.28 L, Hgb 7.2 L, Hct 21.2 L, MCV 93.0, MCH 31.6, MCHC 34.0, RDW Std Deviation 53.9 H, RDW Coeff of Ronnie 16.3 H, Plt Count 217, MPV9.9, Immature Gran % (Auto) 0.400, Neut % (Auto) 55.3, Lymph % (Auto) 28.6, [place]% (Auto) 7.9, Eos % (Auto) 7.2 H, Baso % (Auto) 0.6, Absolute Neuts (auto) 5.2, Absolute Lymphs (auto) 2.70, Nucleated RBC % 0, PT 14.5, INR 1.1, APTT 23.3 L, Sodium 139, Potassium 4.1, Chloride 108, Carbon Dioxide 24.6, Anion Gap 6, BUN 12, Creatinine 0.58 L, Estim Creat Clear Calc 72.52, Est GFR (MDRD) Non-Af 95, BUN/Creatinine Ratio 20.1 H, Glucose 185 H, Calcium 8.0, Phosphorus 2.9, Magnesium 2.2, Total Bilirubin 0.33, AST 14, ALT 15, Alkaline Phosphatase 46, Total Protein 5.0 L, Albumin 2.9 L, Globulin 2.1 L, Albumin/Globulin Ratio 1.4, TSH 6.330 H 12/28/24 06:30: POC Glucose 186 H Micro: Microbiology 12/27/24 11:23 Stool Stool Occult Blood (PIA) - Final Occult Blood Positive Radiography Diagnostic Testing: Radiology Impression Abdomen/Pelvis CT 12/27/24 11:12 IMPRESSION: Diffuse fatty infiltration of the liver. Findings suggestive of pancreatitis in the region of the head of the pancreas. Small right renal cysts. Status post subtotal gastrectomy. Reading Location: [facility] Physical Exam Narrative GENERAL: cooperative HEENT: Atraumatic; normocephalic EYES; Anicteric, Normal Conjunctiva NECK; supple, normal thyroid, RESPIRATORY: Diminished to auscultation CARDIOVASCULAR: Regular S1 S2, GI: soft, normoactive bowel sounds, : No Renal angle tenderness; EXTREMITIES: No edema, no clubbing, MUSCULOSKELETAL: no muscle wasting NEURO: Awake; no lateralizing signs. SKIN: No Rash PSYCH; Flat affect Eyes conjunctivae normal Assessment & Plan Assessment/Plan (1) GI bleed: PLAN: Plan Patient is a 74-year-old lady who presented to the emergency department with abdominal pain with associated nausea and vomiting as well as melenic stools. Patient was found to be anemic with hemoglobin of 7.0 admitted to monitored bed for further management 1. Anemia ? Secondary to acute blood loss anemia suspected to be secondary to upper GI bleed exacerbated by the use of aspirin. Patient hemoglobin on admission was 7.0 patient was transfused with 1 unit PRBC started on Protonix drip after bolusadmitted to monitored bed H&H ordered consult placed to GI 2. Acute cystitis ? Patient urinalysis was abnormal and consistent with UTI started on ceftriaxone 3. Hypothyroidism ? Patient is on levothyroxine home dose continued 4. Peripheral arterial disease ? Patient is on antiplatelet held on admission 5. New onset diabetes mellitus type 2 ? Patient presented with hyperglycemia hemoglobin A1c ordered came back at 7.8. Subsequently placed on Accu-Cheks ACHS as well as 1800 ADA diet 6. Degenerative joint disease ? Pain meds as needed 7. Hepatosteatosis ? Consult was placed to GI on admission 8. Hypertension ? Blood pressure controlled, home medications continued with dose adjustment as needed 9. Mild intermittent asthma ? Currently not in exacerbation aerosol treatments as needed 10. GERD/history of Sarmiento's esophagus - Previous Robbie fundoplication; PPI as above 11 remote history of DVT ? Patient was treated appropriately 12. Class II obesity with BMI of 39.4 ? Complicating care weight loss advised 13. DVT prophylaxis ? Bilateral SCDs Time spent in the patient's overall evaluation,decision-making process, review of diagnostic data, adjustment of management, discussion with other providers, nursing nursing and ancillary staff involved in patient's care documentation, 52. Minutes Charges/Coding Visit Charges Inpatient E&M: 39342 [facility] Hosp 12/28/24 1015 <Electronically signed by Keshav Elizondo MD> Cosigner Signature (if applicable): CC: ~ Signed [facility] Work Phone: Progress note Author Keshav Elizondo [facility] Note Date/Time December 29, 2024 9 :20am [facility] Medical Records Department [address] [place] [address] Progress Note - Hospitalist 12/29/24 0853 MR#: [id number] Acct: [id number] Name: KESHIA ROJAS Rep #:[id number] : 1950 74 From: Keshav Elizondo MD PCP: Dr. Paulo Scott MD Status:AD M IN Location: [place] [address] Reason for Visit Chief Complaint: Melena/abdominal pain Subjective Subjective Patient underwent EGD the day prior findings and recommendation as documented below Objective Data Objective Data Vital Signs: Vital Signs Temp Pulse Resp BP Pulse Ox O2 Del Method 98.6 F 81 18 116/48 L 93 Room Air 12/29/24 03:45 12/29/24 03:45 12/29/24 03:45 12/29/24 03:45 12/29/24 03:45 12/29/24 03:45 Oxygen Delivery Method Room Air Weight: 98 kg Body Mass Index (BMI) 37.0 Intake & Output: Intake and Output for Last 24 Hours 12/27/24 12/28/24 12/29/24 23:59 23:59 23:59 Intake Total 990.00 / 990.00 Output Total 2800 / 2800 Balance 988.00 / 988.00 -2800 / -2800 Lab / Micro Data 12/29/24 05:26 12/29/24 05:26 Labs: Laboratory Results - last 24 hr 12/28/24 10:08: Hgb 8.3 L, Hct 25.4 L 12/28/24 11:09: POC Glucose 189 H 12/28/24 16:10: POC Glucose 166 H 12/28/24 23:52: POC Glucose 252 H 12/29/24 05:26: WBC 8.9, RBC 2.38 L, Hgb 7.3 L, Hct 23.0 L, MCV 96.6, MCH 30.7, MCHC 31.7 L D, RDW Std Deviation 55.6 H, RDW Coeff of Ronnie 16.6 H, Plt Count 237,MPV 10.1, Immature Gran % (Auto) 0.400, Neut % (Auto) 57.7, Lymph % (Auto) 24.2,[place] % (Auto) 11.1 H, Eos % (Auto) 6.0 H, Baso % (Auto) 0.6, Absolute Neuts (auto) 5.1, Absolute Lymphs (auto) 2.15, Nucleated RBC % 0, Sodium 140, Potassium 3.6, Chloride 107, Carbon Dioxide 25.3, Anion Gap 7, BUN 9, Creatinine0.66 L, Estim Creat Clear Calc 70.14, Est GFR (MDRD) Non-Af 92, BUN/Creatinine Ratio 13.9, Glucose 201 H, Calcium 8.0, Phosphorus 3.1, Magnesium 2.1 12/29/24 05:39: POC Glucose 204 H Micro: Microbiology 12/27/24 11:23 Stool Stool Occult Blood (PIA) - Final Occult Blood Positive Radiography Diagnostic Testing: Radiology Impression Chest X-Ray 12/28/24 10:44 IMPRESSION: 1. Hiatus hernia. 2. Mild cardiac enlargement. Subsegmental atelectasis left lower lobe. Reading Location: [facility] Physical Exam Narrative GENERAL: cooperative HEENT: Atraumatic; normocephalic EYES; Anicteric, Normal Conjunctiva NECK; supple, normal thyroid, RESPIRATORY: Diminished to auscultation CARDIOVASCULAR: Regular S1 S2, GI: soft, normoactive bowel sounds, : No Renal angle tenderness; EXTREMITIES: No edema, no clubbing, MUSCULOSKELETAL: no muscle wasting NEURO: Awake; no lateralizing signs. SKIN: No Rash PSYCH; Flat affect Assessment & Plan Assessment/Plan (1) GI bleed: PLAN: Plan Patient is a 74-year-old lady who presented to the emergency department with abdominal pain with associated nausea and vomiting as well as melenic stools. Patient was found to be anemic with hemoglobin of 7.0 admitted to monitored bed for further management 1. Anemia ? Secondary to acute blood loss anemia suspected to be secondary to upper GI bleed exacerbated by the use of aspirin. Patient hemoglobin on admission was 7.0 patient was transfused with 1 unit PRBC started on Protonix drip after bolusadmitted to monitored bed H&H ordered consult placed to GI ? 12/29/2024; patient underwent EGD by Dr. Casper on 12/28/2024 findings and recommendations as below Impressions : - LA Grade C erosive esophagitis with bleeding. Biopsied. Treated with a heater probe. - Zakia-Quezada tear. Treated with a heater probe. - Hiatal hernia. - A fundoplication was found. The wrap appears loose. - No gross lesions in the entire stomach. - No gross lesions in the entire examined duodenum. Recommendations : -- Use Protonix (pantoprazole) 40 mg PO BID for 3 months. Patient hemoglobin down to 7.3 we will continue with monitoring. Repeated H&H at 1400 2. Acute cystitis ? Patient urinalysis was abnormal and consistent with UTI started on ceftriaxone ? 12/29/2024; patient urine cultures so far positive for an alphahemolytic organism with greater than 100 K CFU and mixed gram-positive and gram-negative organisms with 25K-50K CFU final identification and sensitivities pending 3. Hypothyroidism ? Patient is on levothyroxine home dose continued 4. Peripheral arterial disease ? Patient is on antiplatelet held on admission 5. New onset diabetes mellitus type 2 ? Patient presented with hyperglycemia hemoglobin A1c ordered came back at 7.8. Subsequently placed on Accu-Cheks ACHS as well as 1800 ADA diet 6. Degenerative joint disease ? Pain meds as needed 7. Hepatosteatosis ? Consult was placed to GI on admission 8. Hypertension ? Blood pressure controlled, home medications continued with dose adjustment as needed 9. Mild intermittent asthma ? Currently not in exacerbation aerosol treatments as needed 10. GERD/history of Sarmiento's esophagus - Previous Robbie fundoplication; PPI as above 11 remote history of DVT ? Patient was treated appropriately 12. Class II obesity with BMI of 39.4 ? Complicating care weight loss advised 13. DVT prophylaxis ? Bilateral SCDs Time spent in the patient's overall evaluation,decision-making process, review of diagnostic data, adjustment of management, discussion with other providers, nursing nursing and ancillary staff involved in patient's care documentation, 52. Minutes Charges/Coding Visit Charges Inpatient E&M: 57804 Subs Hosp L3 12/29/24 0920 <Electronically signed by Keshav Elizondo MD> Cosigner Signature (if applicable): CC: ~ Signed [facility] Work Phone: Progress note Author Keshav Elizondo [facility] Note Date/Time December 30, 2024 1 1:20am [facility] Medical Records Department [address] [place] [address] Progress Note - Hospitalist 12/30/24 0829 MR#: [id number] Acct: [id number] Name: KESHIA ROJAS Rep #:[id number] : 1950 74 From: Keshav Elizondo MD PCP: Dr. Paulo Scott MD Status:AD M IN Location: [place] [address] Reason for Visit Chief Complaint: Melena/abdominal pain Subjective Subjective Patient seen and reports wheezing. Clinical evaluation consistent with acute congestive heart failure Objective Data Objective Data Vital Signs: Vital Signs Temp Pulse Resp BP Pulse Ox O2 Del Method O2 Flow Rate 98.9 F 77 16 109/59 L 96 Nasal Cannula 2 12/30/24 03:50 12/30/24 03:50 12/30/24 03:50 12/30/24 03:50 12/30/24 03:50 12/30/24 03:50 12/30/24 03:50 Oxygen Flow Rate (L/min) 2 Oxygen Delivery Method Nasal Cannula Weight: 98.1 kg Body Mass Index (BMI) 37.1 Intake & Output: Intake and Output for Last 24 Hours 12/28/24 12/29/24 12/30/24 23:59 23:59 23:59 Intake Total 990.00 / 990.00 50 / 50 Output Total 4300 / 4800 500 / 500 Balance 988.00 / 988.00 -4250 / -4750 -500 / -500 Lab / Micro Data 12/30/24 10:42 12/30/24 05:29 Labs: Laboratory Results - last 24 hr 12/29/24 11:38: POC Glucose 195 H 12/29/24 13:51: Hgb 7.7 L, Hct 24.4 L 12/29/24 16:43: POC Glucose 206 H 12/30/24 00:00: POC Glucose 177 H 12/30/24 05:29: WBC 7.5, RBC 2.35 L, Hgb 7.3 L, Hct 22.7 L, MCV 96.6, MCH 31.1, MCHC 32.2, RDW Std Deviation 54.6 H, RDW Coeff of Ronnie 15.9 H, Plt Count 230, MPV9.5, Immature Gran % (Auto) 0.400, Neut % (Auto) 53.2, Lymph % (Auto) 27.7, [place]% (Auto) 9.6, Eos % (Auto) 8.6 H, Baso % (Auto) 0.5, Absolute Neuts (auto) 4.0, Absolute Lymphs (auto) 2.08, Nucleated RBC % 0, Sodium 137, Potassium 3.8, Chloride 104, Carbon Dioxide 26.0, Anion Gap 7, BUN 10, Creatinine 0.70, Estim Creat Clear Calc 70.18, Est GFR (MDRD) Non-Af 91, BUN/Creatinine Ratio 14.9, Glucose 164 H, Calcium 8.2 Micro: Microbiology 12/27/24 11:23 Urine, Clean Catch Urine Culture - Final Aerococcus urinae Mixed Gram Pos & Gram Neg Org 12/27/24 11:23 Stool Stool Occult Blood (PIA) - Final Occult Blood Positive Physical Exam Narrative GENERAL: cooperative HEENT: Atraumatic; normocephalic EYES; Anicteric, Normal Conjunctiva NECK; supple, normal thyroid, RESPIRATORY: Diminished to auscultation ? With bibasilar wheezes and crackles CARDIOVASCULAR: Regular S1 S2, GI: soft, normoactive bowel sounds, : No Renal angle tenderness; EXTREMITIES: Bipedal edema MUSCULOSKELETAL: no muscle wasting NEURO: Awake; no lateralizing signs. SKIN: No Rash PSYCH; Flat affect Assessment & Plan Assessment/Plan (1) GI bleed: PLAN: Plan Patient is a 74-year-old lady who presented to the emergency department with abdominal pain with associated nausea and vomiting as well as melenic stools. Patient was found to be anemic with hemoglobin of 7.0 admitted to monitored bed for further management 1. Anemia ? Secondary to acute blood loss anemia suspected to be secondary to upper GI bleed exacerbated by the use of aspirin. Patient hemoglobin on admission was 7.0 patient was transfused with 1 unit PRBC started on Protonix drip after bolusadmitted to monitored bed H&H ordered consult placed to GI ? 12/29/2024; patient underwent EGD by Dr. Casper on 12/28/2024 findings and recommendations as below Impressions : - LA Grade C erosive esophagitis with bleeding. Biopsied. Treated with a heater probe. - Zakia-Quezada tear. Treated with a heater probe. - Hiatal hernia. - A fundoplication was found. The wrap appears loose. - No gross lesions in the entire stomach. - No gross lesions in the entire examined duodenum. Recommendations : -- Use Protonix (pantoprazole) 40 mg PO BID for 3 months. Patient hemoglobin down to 7.3 we will continue with monitoring. Repeated H&H at 1400 ? 12/31/2023; patient hemoglobin up to 7.9 2. Acute cystitis ? Patient urinalysis was abnormal and consistent with UTI started on ceftriaxone ? 12/29/2024; patient urine cultures so far positive for an alphahemolytic organism with greater than 100 K CFU and mixed gram-positive and gram-negative organisms with 25K-50K CFU final identification and sensitivities pending ? 12/30/2024; patient friend urine culture sensitivities reviewed positive for Aerococcus 3. Acute congestive heart failure?suspected heart failure with preserved ejection fraction ? Ordered 2D echo, proBNP. Patient started on diuretics placed on low-sodium diet in addition to fluid restriction and serial monitoring of electrolyte. Also ordered daily weights as well as strict input and output and discontinued patient IV fluids 4. Peripheral arterial disease ? Patient is on antiplatelet held on admission 5. New onset diabetes mellitus type 2 ? Patient presented with hyperglycemia hemoglobin A1c ordered came back at 7.8. Subsequently placed on Accu-Cheks ACHS as well as 1800 ADA diet 6. Degenerative joint disease ? Pain meds as needed 7. Hepatosteatosis ? Consult was placed to GI on admission 8. Hypertension ? Blood pressure controlled, home medications continued with dose adjustment as needed 9. Mild intermittent asthma ? Currently not in exacerbation aerosol treatments as needed 10. GERD/history of Sarmiento's esophagus - Previous Robbie fundoplication; PPI as above 11. Hypothyroidism ? Patient is on levothyroxine home dose continued 12 remote history of DVT ? Patient was treated appropriately 13. Class II obesity with BMI of 39.4 ? Complicating care weight loss advised 14. DVT prophylaxis ? Bilateral SCDs Time spent in the patient's overall evaluation,decision-making process, review of diagnostic data, adjustment of management, discussion with other providers, nursing nursing and ancillary staff involved in patient's care documentation, 50. Minutes Charges/Coding Visit Charges Inpatient E&M: 85138 Subs Hosp L3 12/30/24 1120 <Electronically signed by Keshav Elizondo MD> Cosigner Signature (if applicable): CC: ~ Signed [facility] Work Phone: Progress note Author Raul Casper [facility] Note Date/Time December 30, 2024 6 :52pm [facility] Medical Records Department [address] [place] [address] Progress Note 12/30/24 1849 MR#: [id number] Acct: [id number] Name: KESHIA ROJAS Rep #:[id number] : 1950 74 From: Raul Casper DO PCP: Dr. Paulo Scott MD Status:AD M IN Location: [place] [address] Progress Note A 74-year-old woman presents for a follow-up visit after being diagnosed with erosive esophagitis and bleeding stigmata. She initially presented with progressive dysphagia, nausea, and vomiting. * Intervention and Treatment:?An upper endoscopy was performed, and bleeding stigmata were treated endoscopically. She was started on PPI (proton pump inhibitor) therapy and Carafate (sucralfate). * Current Status:?The patient reports significant improvement in her symptoms since the last visit. She is tolerating her diet well and denies any further episodes of dysphagia, nausea, or vomiting. She has been compliant with her medication regimen. * Associated Symptoms:?She denies any new or worsening symptoms, including heartburn, chest pain, or bleeding. Physical Exam Const alert, oriented x3, no apparent distress and healthy appearing General Appearance: cooperative GI normal to inspection, nondistended, normoactive bowel sounds, soft to palpation,non-tender and non-distended Percussion: normal to percussion Rectal Exam: deferred Assessment & Plan Assessment/Plan (1) GI bleed: PLAN: Assessment * Progressive Dysphagia/Nausea/Vomiting:?Resolved with PPI and sucralfate therapy. * Erosive Esophagitis with Bleeding:?Improved following endoscopic treatment and continued medical management. Hemoglobin is stable, suggesting resolution of active bleeding. * Potential Complications: * GERD :?Likely underlying cause of the erosive esophagitis. * Pill-induced Esophagitis:?Ruled out due to appropriate medication regimen. * Infectious Esophagitis:?Less likely given the clinical picture and treatment response. Plan * Continue Medication:?Continue current regimen of PPI therapy and Carafate as prescribed. * Dietary Modifications: * Encourage a soft-food diet, chewing food thoroughly, and eating slowly. * Recommend eating smaller, more frequent meals. * Advise avoiding trigger foods such as acidic, spicy, and fatty foods, as well as carbonated beverages, caffeine, and alcohol. * Discourage eating within 3 hours of bedtime. * Lifestyle Modifications: * Suggest elevating the head of the bed to reduce nocturnal reflux. * Advise maintaining a healthy weight. * Instruct on the importance of staying upright for at least 45?60 minutes after eating. * Follow-Up: * Follow up in 4?6 weeks to monitor symptoms and assess for relapse. * Check repeat hemoglobin levels to ensure continued stability. * Consider repeat endoscopy if symptoms recur or fail to resolve. Visit Charges Inpatient E&M: 69727 Subs Hosp L3 12/30/241851 <Electronically signed by Raul Casper DO> Raul Casper DO Cosigner Signature (if applicable): CC: ~ Signed [facility] Work Phone: Progress note Author Keshav Elizondo [facility] Note Date/Time December 31, 2024 9 :39am [facility] Medical Records Department [address] [place] [address] Progress Note - Hospitalist 12/31/24 0929 MR#: [id number] Acct: [id number] Name: KESHIA ROJAS Rep #:[id number] : 1950 74 From: Keshav Elizondo MD PCP: Dr. Paulo Scott MD Status:AD M IN Location: [place] [address] Reason for Visit Chief Complaint: Melena/abdominal pain Subjective Subjective Patient seen, currently on oxygen. Had a good response to diuretic therapy and had a negative fluid balance of 4.7 L over the past 24 hours will continue with diuretic therapy was relaxing her fluid restriction per her request. Diagnosticdata reviewed significant for hypokalemia of 3.1 Objective Data Objective Data Vital Signs: Vital Signs Temp Pulse Resp BP Pulse Ox O2 Del Method O2 Flow Rate 98.6 F 88 16 115/66 95 Nasal Cannula 2 12/31/24 09:00 12/31/24 09:00 12/31/24 09:00 12/31/24 09:00 12/31/24 09:00 12/31/24 09:00 12/31/24 09:00 Oxygen Flow Rate (L/min) 2 Oxygen Delivery Method Nasal Cannula Weight: 97.5 kg Body Mass Index (BMI) 36.8 Intake & Output: Intake and Output for Last 24 Hours 12/29/24 12/30/24 12/31/24 23:59 23:59 23:59 Intake Total 50 / 50 50 / 50 250 / 250 Output Total 4300 / 4800 4000 / 5575 1575 / 1575 Balance -4250 / -4750 -3950 / -5525 -1325 / -1325 Lab / Micro Data 12/31/24 05:38 12/31/24 05:38 Labs: Laboratory Results - last 24 hr 12/30/24 05:47: POC Glucose 161 H 12/30/24 10:42: Hgb 7.9 L, Hct 25.0 L 12/30/24 11:08: POC Glucose 232 H 12/30/24 16:47: POC Glucose 268 H 12/30/24 22:00: POC Glucose 217 H 12/31/24 05:38: WBC 8.9, RBC 2.70 L, Hgb 8.3 L, Hct 25.2 L, MCV 93.3, MCH 30.7, MCHC 32.9, RDW Std Deviation 50.8 H, RDW Coeff of Ronnie 15.2 H, Plt Count 310, MPV9.7, Immature Gran % (Auto) 0.500, Neut % (Auto) 64.9, Lymph % (Auto) 20.1, [place]% (Auto) 9.7, Eos % (Auto) 4.2, Baso % (Auto) 0.6, Absolute Neuts (auto) 5.8, Absolute Lymphs (auto) 1.78, Nucleated RBC % 0, Sodium 139, Potassium 3.1 L, Chloride 99, Carbon Dioxide 29.3, Anion Gap 11, BUN 14, Creatinine 0.77, Estim Creat Clear Calc 69.95, Est GFR (MDRD) Non-Af 81, BUN/Creatinine Ratio 18.7, Glucose 167 H, Calcium 8.5, NT pro BNP II 154 Micro: Microbiology 12/27/24 11:23 Urine, Clean Catch Urine Culture - Final Aerococcus urinae Mixed Gram Pos & Gram Neg Org 12/27/24 11:23 Stool Stool Occult Blood (PIA) - Final Occult Blood Positive Radiography Diagnostic Testing: Radiology Impression Echocardiogram 12/30/24 11:23 Interpretation Summary Normal LV size. Moderate concentric left ventricular hypertrophy. The left ventricular ejection fraction is 75 %. Left ventricular systolic function is normal. Resting LV gradient 4 mmHg. Valsalva LV gradient 47 mmHg. Ordering Physician: Keshav Elizondo Referring Physician: Paulo Scott M.D. Performed By: Mckayla Terry RCS Physical Exam Narrative GENERAL: cooperative HEENT: Atraumatic; normocephalic EYES; Anicteric, Normal Conjunctiva NECK; supple, normal thyroid, RESPIRATORY: Diminished to auscultation ? With bibasilar wheezes and crackles CARDIOVASCULAR: Regular S1 S2, GI: soft, normoactive bowel sounds, : No Renal angle tenderness; EXTREMITIES: Bipedal edema MUSCULOSKELETAL: no muscle wasting NEURO: Awake; no lateralizing signs. SKIN: No Rash PSYCH; Flat affect Assessment & Plan Assessment/Plan (1) GI bleed: PLAN: Plan Patient is a 74-year-old lady who presented to the emergency department with abdominal pain with associated nausea and vomiting as well as melenic stools. Patient was found to be anemic with hemoglobin of 7.0 admitted to monitored bed for further management 1. Anemia ? Secondary to acute blood loss anemia suspected to be secondary to upper GI bleed exacerbated by the use of aspirin. Patient hemoglobin on admission was 7.0 patient was transfused with 1 unit PRBC started on Protonix drip after bolusadmitted to monitored bed H&H ordered consult placed to GI ? 12/29/2024; patient underwent EGD by Dr. Casper on 12/28/2024 findings and recommendations as below Impressions : - LA Grade C erosive esophagitis with bleeding. Biopsied. Treated with a heater probe. - Zakia-Quezada tear. Treated with a heater probe. - Hiatal hernia. - A fundoplication was found. The wrap appears loose. - No gross lesions in the entire stomach. - No gross lesions in the entire examined duodenum. Recommendations : -- Use Protonix (pantoprazole) 40 mg PO BID for 3 months. Patient hemoglobin down to 7.3 we will continue with monitoring. Repeated H&H at 1400 ? 12/31/2023; patient hemoglobin up to 7.9 2. Acute cystitis ? Patient urinalysis was abnormal and consistent with UTI started on ceftriaxone ? 12/29/2024; patient urine cultures so far positive for an alphahemolytic organism with greater than 100 K CFU and mixed gram-positive and gram-negative organisms with 25K-50K CFU final identification and sensitivities pending ? 12/30/2024; patient friend urine culture sensitivities reviewed positive for Aerococcus 3. Acute congestive heart failure?suspected heart failure with preserved ejection fraction ? Ordered 2D echo, proBNP. Patient started on diuretics placed on low-sodium diet in addition to fluid restriction and serial monitoring of electrolyte. Also ordered daily weights as well as strict input and output and discontinued patient IV fluids 12/31/2024; Had a good response to diuretic therapy and had a negative fluid balance of 4.7 L over the past 24 hours will continue with diuretic therapy was relaxing her fluid restriction per her request. 2D echo obtained did show normalLV size. Moderate concentric left ventricular hypertrophy. The left ventricular ejection fraction is 75 %.Left ventricular systolic function is normal. Resting LV gradient 4 mmHg.Valsalva LV gradient 47 mmHg. Plan is to continue with diuretic therapy for an additional day 4. Peripheral arterial disease ? Patient is on antiplatelet held on admission 5. New onset diabetes mellitus type 2 ? Patient presented with hyperglycemia hemoglobin A1c ordered came back at 7.8. Subsequently placed on Accu-Cheks ACHS as well as 1800 ADA diet 6. Degenerative joint disease ? Pain meds as needed 7. Hepatosteatosis ? Consult was placed to GI on admission 8. Hypertension ? Blood pressure controlled, home medications continued with dose adjustment as needed 9. Mild intermittent asthma ? Currently not in exacerbation aerosol treatments as needed 10. GERD/history of Sarmiento's esophagus - Previous Robbie fundoplication; PPI as above 11. Hypothyroidism ? Patient is on levothyroxine home dose continued 12. Remote history of DVT ? Patient was treated appropriately 13. Class II obesity with BMI of 39.4 ? Complicating care weight loss advised 14. DVT prophylaxis ? Bilateral SCDs 15. Hypokalemia ? Corrected per protocol repeat labs ordered in a.m. to assess response to therapy 16. Atelectasis ? Did encourage the use of incentive spirometry 17. Physical deconditioning ? Requested for PT OT eval and social worker clinical to assist with discharge planning Time spent in the patient's overall evaluation,decision-making process, review of diagnostic data, adjustment of management, discussion with other providers, nursing nursing and ancillary staff involved in patient's care documentation, 52. Minutes Charges/Coding Visit Charges Inpatient E&M: 22870 Subs Hosp L3 12/31/24 0939 <Electronically signed by Keshav Elizondo MD> Cosigner Signature (if applicable): CC: ~ Signed [facility] Work Phone: Progress note Author Clifton Wells [facility] Note Date/Time January 01, 2025 7 :07pm [facility] Medical Records Department [address] [place] [address] Progress Note - Hospitalist 01/01/25 1223 MR#: [id number] Acct: [id number] Name: KESHIA ROJAS Rep #:[id number] : 1950 74 From: Clifton Tony PCP: Dr. Paulo Scott MD Status:AD M IN Location: [place] [id number] Reason for Visit Chief Complaint: Melena/abdominal pain Objective Data Objective Data Vital Signs: Vital Signs Temp Pulse Resp BP Pulse Ox O2 Del Method O2 Flow Rate 98.1 F 82 18 101/69 93 Room Air 2 01/01/25 08:20 01/01/25 10:49 01/01/25 10:49 01/01/25 08:20 01/01/25 08:20 01/01/25 08:20 12/31/24 17:50 Oxygen Flow Rate (L/min) 2 Oxygen Delivery Method Room Air Weight: 214 lb 4.629 oz Body Mass Index (BMI) 36.8 Intake & Output: Intake and Output for Last 24 Hours 12/30/24 12/31/24 01/01/25 23:59 23:59 23:59 Intake Total 50 / 50 1000 / 1200 570 / 570 Output Total 4000 / 5575 2826 / 3626 1800 / 1800 Balance -3950 / -5525 -1826 / -2426 -1230 / -1230 Lab / Micro Data 12/31/24 05:38 12/31/24 05:38 Labs: Laboratory Results - last 24 hr 12/31/24 09:06: POC Glucose 200 H 12/31/24 17:22: POC Glucose 243 H 12/31/24 21:15: POC Glucose 212 H 01/01/25 06:43: POC Glucose 176 H 01/01/25 10:02: POC Glucose 263 H Micro: Microbiology 12/27/24 11:23 Urine, Clean Catch Urine Culture - Final Aerococcus urinae Mixed Gram Pos & Gram Neg Org 12/27/24 11:23 Stool Stool Occult Blood (PIA) - Final Occult Blood Positive Physical Exam Narrative Seen and examined. Complain of not moving bowel since he has been here. Passing flatus Weakness of lower legs. Has not walked. Usually she uses cane/walker when she walks outside at home. She states she has torn left knee meniscus in the past Physical exam General: Alert, Oriented x3, Cooperative HEENT: Atraumatic, PERRLA, EOMI, Normocephalic. Oral: No Gingival or Mucosal Lesions/ Ulcerations Neck: Supple, No JVD, Negative Carotid Bruits Chest wall/Lungs: Air entry diminished in bilateral lung bases. No crepitation/rhonchi Cardiovascular: Regular rate and rhythm, Normal S1,S2, No M/G/R Abdomen: Bowel Sounds Present, Soft, Non Tender, Non-Distended : No dysuria. No renal angle tenderness. No suprapubic tenderness. Extremities: No edema, Capillary Refill Less than 3 Seconds Skin: No rashes, No breakdown Musculoskeletal: Muscle strength 4/5 at both knees and hip, left more than right. ROM decreased Neurological: Cranial nerves II-XII grossly intact, DTR 2+/4. No acute focal neurological deficit. Psych/Mental Status: Normal Affect, Appropriate. Assessment & Plan Assessment/Plan (1) GI bleed: PLAN: Plan Patient is a 74-year-old lady who presented to the emergency department with abdominal pain with associated nausea and vomiting as well as melenic stools. Patient was found to be anemic with hemoglobin of 7.0 admitted to monitored bed for further management 1. Anemia ? Secondary to acute blood loss anemia suspected to be secondary to upper GI bleed exacerbated by the use of aspirin. Patient hemoglobin on admission was 7.0 patient was transfused with 1 unit PRBC started on Protonix drip after bolusadmitted to monitored bed H&H ordered consult placed to GI ? 12/29/2024; patient underwent EGD by Dr. Casper on 12/28/2024 findings and recommendations as below Impressions : - LA Grade C erosive esophagitis with bleeding. Biopsied. Treated with a heater probe. - Zakia-Quezada tear. Treated with a heater probe. - Hiatal hernia. - A fundoplication was found. The wrap appears loose. - No gross lesions in the entire stomach. - No gross lesions in the entire examined duodenum. Recommendations : -- Use Protonix (pantoprazole) 40 mg PO BID for 3 months. Patient hemoglobin down to 7.3 we will continue with monitoring. Repeated H&H at 1400 ? 12/31/2023; patient hemoglobin up to 7.9 01/01: H&H 8.3/25%. Platelet count 310. 2. Acute cystitis ? Patient urinalysis was abnormal and consistent with UTI started on ceftriaxone ? 12/29/2024; patient urine cultures so far positive for an alphahemolytic organism with greater than 100 K CFU and mixed gram-positive and gram-negative organisms with 25K-50K CFU final identification and sensitivities pending ? 12/30/2024; patient friend urine culture sensitivities reviewed positive for Aerococcus 01/01 on IV ceftriaxone 3. Acute congestive heart failure?suspected heart failure with preserved ejection fraction ? Ordered 2D echo, proBNP. Patient started on diuretics placed on low-sodium diet in addition to fluid restriction and serial monitoring of electrolyte. Also ordered daily weights as well as strict input and output and discontinued patient IV fluids 12/31/2024; Had a good response to diuretic therapy and had a negative fluid balance of 4.7 L over the past 24 hours will continue with diuretic therapy was relaxing her fluid restriction per her request. 2D echo obtained did show normalLV size. Moderate concentric left ventricular hypertrophy. The left ventricular ejection fraction is 75 %.Left ventricular systolic function is normal. Resting LV gradient 4 mmHg.Valsalva LV gradient 47 mmHg. Plan is to continue with diuretic therapy for an additional day 01/01: Patient on room air, pulse ox 94%. Hypoxia resolved. 4. Peripheral arterial disease ? Patient is on antiplatelet held on admission 5. New onset diabetes mellitus type 2 ? Patient presented with hyperglycemia hemoglobin A1c ordered came back at 7.8. Subsequently placed on Accu-Cheks ACHS as well as 1800 ADA diet 6. Degenerative joint disease ? Pain meds as needed 7. Hepatosteatosis ? Consult was placed to GI on admission 8. Hypertension ? Blood pressure controlled, home medications continued with dose adjustment as needed 9. Mild intermittent asthma ? Currently not in exacerbation aerosol treatments as needed 10. GERD/history of Sarmiento's esophagus - Previous Robbie fundoplication; PPI as above 11. Hypothyroidism ? Patient is on levothyroxine home dose continued 12. Remote history of DVT ? Patient was treated appropriately 13. Class II obesity with BMI of 39.4 ? Complicating care weight loss advised 14. DVT prophylaxis ? Bilateral SCDs 15. Hypokalemia ? Corrected per protocol repeat labs ordered in a.m. to assess response to therapy 16. Atelectasis ? Did encourage the use of incentive spirometry 17. Physical deconditioning ? Requested for PT OT eval and social worker clinical to assist with discharge planning 18. Patient has not moved bowels since admission. Senna S2 tablet twice daily,MiraLAX ordered. Dulcolax also ordered Microbiology Past 72 Hours 12/27/24 11:23 Urine, Clean Catch Urine Culture - Final Aerococcus urinae Mixed Gram Pos & Gram Neg Org Laboratory Results 12/31/24 21:15: POC Glucose 212 H 01/01/25 06:43: POC Glucose 176 H 01/01/25 10:02: POC Glucose 263 H 01/01/25 15:55: POC Glucose 208 H Charges/Coding Visit Charges Inpatient E&M: 07689 Subs Hosp L2 01/01/25 190 <Electronically signed by Clifton Wells MD> Cosigner Signature (if applicable): CC: ~ Signed [facility] Work Phone: Progress note Author Clifton [facility] Note Date/Time January 02, 2025 1 1:19am [facility] Medical Records Department [address] [place] [address] Progress Note - Hospitalist 01/02/25 1113 MR#: [id number] Acct: [id number] Name: KESHIA ROJAS Rep #:[id number] : 1950 74 From: Clifton Tony PCP: Dr. Paulo Scott MD Status:AD M IN Location: [place] [address] Reason for Visit Chief Complaint: Melena/abdominal pain Objective Data Objective Data Vital Signs: Vital Signs Temp Pulse Resp BP Pulse Ox O2 Del Method O2 Flow Rate 97.8 F 86 17 106/67 96 Nasal Cannula 2 01/02/25 09:16 01/02/25 09:16 01/02/25 09:16 01/02/25 09:16 01/02/25 09:16 01/02/25 10:00 01/02/25 10:00 Oxygen Flow Rate (L/min) 2 Oxygen Delivery Method Nasal Cannula Weight: 203 lb 8 oz Body Mass Index (BMI) 34.9 Intake & Output: Intake and Output for Last 24 Hours 12/31/24 01/01/25 01/02/25 23:59 23:59 23:59 Intake Total 1000 / 1200 890 / 890 250 / 250 Output Total 2826 / 3626 2600 / 2600 Balance -1826 / -2426 -1710 / -1710 250 / 250 Lab / Micro Data 01/02/25 04:30 01/02/25 04:30 Labs: Laboratory Results - last 24 hr 01/01/25 15:55: POC Glucose 208 H 01/01/25 21:39: POC Glucose 226 H 01/02/25 04:30: WBC 8.7, RBC 2.91 L, Hgb 8.7 L, Hct 26.9 L, MCV 92.4, MCH 29.9, MCHC 32.3, RDW Std Deviation 49.2 H, RDW Coeff of Ronnie 14.6, Plt Count 368, MPV 9.4, Immature Gran % (Auto) 0.700, Neut % (Auto) 58.6, Lymph % (Auto) 22.3, [place]% (Auto) 10.1 H, Eos % (Auto) 7.6 H, Baso % (Auto) 0.7, Absolute Neuts (auto) 5.1, Absolute Lymphs (auto) 1.93, Nucleated RBC % 0.2, Sodium 136, Potassium 3.5, Chloride 94 L, Carbon Dioxide 31.5, Anion Gap 10, BUN 21 H, Creatinine 0.84, Estim Creat Clear Calc 64.69, Est GFR (MDRD) Non-Af 73, BUN/Creatinine Ratio 25.0 H, Glucose 196 H, Calcium 8.9 01/02/25 06:46: POC Glucose 183 H Micro: Microbiology 12/27/24 11:23 Urine, Clean Catch Urine Culture - Final Aerococcus urinae Mixed Gram Pos & Gram Neg Org 12/27/24 11:23 Stool Stool Occult Blood (PIA) - Final Occult Blood Positive Radiography Diagnostic Testing: Radiology Impression Chest X-Ray 01/01/25 21:10 IMPRESSION: Left basilar opacity favoring atelectasis over pneumonia. Elevation of the left hemidiaphragm. Hiatal hernia. Reading Location: [address] Physical Exam Narrative Seen and examined. Complain of not moving bowel since he has been here. She did not have a BM yesterday after giving stool softener. Passing flatus. She felt shortness of breath and congestion and Lasix was given last night and chest x-ray was done which shows bilateral basilar atelectasis. Weakness of lower legs. Has not walked. Usually she uses cane/walker when she walks outside at home. She states she has torn left knee meniscus in the past Physical exam General: Alert, Oriented x3, Cooperative. BMI 34.9 kg/m? HEENT: Atraumatic, PERRLA, EOMI, Normocephalic. Oral: No Gingival or Mucosal Lesions/ Ulcerations Neck: Supple, No JVD, Negative Carotid Bruits Chest wall/Lungs: Air entry diminished in bilateral lung bases. No crepitation/rhonchi Cardiovascular: Regular rate and rhythm, Normal S1,S2, No M/G/R Abdomen: Bowel Sounds Present, Soft, Non Tender, Non-Distended : No dysuria. No renal angle tenderness. No suprapubic tenderness. Extremities: No pitting edema, Capillary Refill Less than 3 Seconds Skin: No rashes, No breakdown Musculoskeletal: Muscle strength 4/5 at both knees and hip, left more than right. ROM decreased Neurological: Cranial nerves II-XII grossly intact, DTR 2+/4. No acute focal neurological deficit. Psych/Mental Status: Normal Affect, Appropriate. Assessment & Plan Assessment/Plan (1) GI bleed: PLAN: Plan Patient is a 74-year-old lady who presented to the emergency department with abdominal pain with associated nausea and vomiting as well as melenic stools. Patient was found to be anemic with hemoglobin of 7.0 admitted to monitored bed for further management 1. Anemia ? Secondary to acute blood loss anemia suspected to be secondary to upper GI bleed exacerbated by the use of aspirin. Patient hemoglobin on admission was 7.0 patient was transfused with 1 unit PRBC started on Protonix drip after bolusadmitted to monitored bed H&H ordered consult placed to GI ? 12/29/2024; patient underwent EGD by Dr. Casper on 12/28/2024 findings and recommendations as below Impressions : - LA Grade C erosive esophagitis with bleeding. Biopsied. Treated with a heater probe. - Zakia-Quezada tear. Treated with a heater probe. - Hiatal hernia. - A fundoplication was found. The wrap appears loose. - No gross lesions in the entire stomach. - No gross lesions in the entire examined duodenum. Recommendations : -- Use Protonix (pantoprazole) 40 mg PO BID for 3 months. Patient hemoglobin down to 7.3 we will continue with monitoring. Repeated H&H at 1400 ? 12/31/2023; patient hemoglobin up to 7.9 01/01: H&H 8.3/25%. Platelet count 310. 01/02: H&H 8.7/26.9, better than she had 7.2 hemoglobin. 2. Acute cystitis ? Patient urinalysis was abnormal and consistent with UTI started on ceftriaxone ? 12/29/2024; patient urine cultures so far positive for an alphahemolytic organism with greater than 100 K CFU and mixed gram-positive and gram-negative organisms with 25K-50K CFU final identification and sensitivities pending ? 12/30/2024; patient pennie urine culture sensitivities reviewed positive for Aerococcus 01/01 on IV ceftriaxone 01/02: No leukocytosis. H&H 3. Acute congestive heart failure?suspected heart failure with preserved ejection fraction ? Ordered 2D echo, proBNP. Patient started on diuretics placed on low-sodium diet in addition to fluid restriction and serial monitoring of electrolyte. Also ordered daily weights as well as strict input and output and discontinued patient IV fluids 12/31/2024; Had a good response to diuretic therapy and had a negative fluid balance of 4.7 L over the past 24 hours will continue with diuretic therapy was relaxing her fluid restriction per her request. 2D echo obtained did show normalLV size. Moderate concentric left ventricular hypertrophy. The left ventricular ejection fraction is 75 %.Left ventricular systolic function is normal. Resting LV gradient 4 mmHg.Valsalva LV gradient 47 mmHg. Plan is to continue with diuretic therapy for an additional day 01/01: Patient on room air, pulse ox 94%. Hypoxia resolved. 01/02: Repeat chest x-ray shows bibasilar atelectasis. Encouraged incentive spirometry and PEP. 4. Peripheral arterial disease ? Patient is on antiplatelet held on admission 5. New onset diabetes mellitus type 2 ? Patient presented with hyperglycemia hemoglobin A1c ordered came back at 7.8. Subsequently placed on Accu-Cheks ACHS as well as 1800 ADA diet 6. Degenerative joint disease ? Pain meds as needed 7. Hepatosteatosis ? Consult was placed to GI on admission 8. Hypertension ? Blood pressure controlled, home medications continued with dose adjustment as needed 9. Mild intermittent asthma ? Currently not in exacerbation aerosol treatments as needed 10. GERD/history of Sarmiento's esophagus - Previous Robbie fundoplication; PPI as above 11. Hypothyroidism ? Patient is on levothyroxine home dose continued 12. Remote history of DVT ? Patient was treated appropriately 13. Class II obesity with BMI of 39.4 ? Complicating care weight loss advised 14. DVT prophylaxis ? Bilateral SCDs 15. Hypokalemia ? Corrected per protocol repeat labs ordered in a.m. to assess response to therapy 16. Atelectasis ? Did encourage the use of incentive spirometry 17. Physical deconditioning ? Requested for PT OT eval and social worker clinical to assist with discharge planning 18. 01/01: Patient has not moved bowels since admission. Senna S2 tablet twicedaily, MiraLAX ordered. Dulcolax also ordered 01/02: She did not had bowel movement yesterday. Dulcolax 20 mg 1 dose and soapsuds enema ordered Microbiology Past 72 Hours 12/27/24 11:23 Urine, Clean Catch Urine Culture - Final Aerococcus urinae Mixed Gram Pos & Gram Neg Org Laboratory Results 01/01/25 15:55: POC Glucose 208 H 01/01/25 21:39: POC Glucose 226 H 01/02/25 04:30: WBC 8.7, RBC 2.91 L, Hgb 8.7 L, Hct 26.9 L, MCV 92.4, MCH 29.9, MCHC 32.3, RDW Std Deviation 49.2 H, RDW Coeff of Ronnie 14.6, Plt Count 368, MPV 9.4, Immature Gran % (Auto) 0.700, Neut % (Auto) 58.6, Lymph % (Auto) 22.3, [place]% (Auto) 10.1 H, Eos % (Auto) 7.6 H, Baso % (Auto) 0.7, Absolute Neuts (auto) 5.1, Absolute Lymphs (auto) 1.93, Nucleated RBC % 0.2, Sodium 136, Potassium 3.5, Chloride 94 L, Carbon Dioxide 31.5, Anion Gap 10, BUN 21 H, Creatinine 0.84, Estim Creat Clear Calc 64.69, Est GFR (MDRD) Non-Af 73, BUN/Creatinine Ratio 25.0 H, Glucose 196 H, Calcium 8.9 01/02/25 06:46: POC Glucose 183 H Charges/Coding Visit Charges Inpatient E&M: 97225 Subs Hosp L2 01/02/25 1119 <Electronically signed by Clifton Wells MD> Cosigner Signature (if applicable): CC: ~ Signed [facility] Work Phone: Reason for referral (narrative)* Diagnostic Procedure Only (Routine) - Pending Review Specialty Diagnoses / Procedures Referred By Contac t Referred To Contact [facility] Diagnoses Encounter for screening mammogram for breast cancer Procedures FORTUNATO SCREENING SCREENING MAMMOGRAPHY BI 2-VIEW BREAST INC Paulo Antoine MD [address] [place] [address] [facility] [address] [place] [address] Referral ID Status Reason Start Date Expiration Date Visits Requested Visits Authorized [id number] Pending Review Auto-Generat ed Referral 08/22/2021 09/21/2022 1 1 [facility] for referral (narrative)* Diagnostic Procedure Only (Routine) - Closed Specialty Diagnoses / Procedures Referred By Silvana escobar Referred To Contact [facility] Diagnoses Encounter for screening mammogram for breast cancer Procedures FORTUNATO SCREENING SCREENING MAMMOGRAPHY BI 2-VIEW BREAST INC Paulo Antoine MD [address] [place] [address] [facility] [address] [email or web address] [address] Referral ID Status Reason Start Date Expiration Date V isits Requested Visits Authorized [id number] Closed Auto-Generate d Referral 08/22/2021 09/21/2022 1 1 [facility] for referral (narrative)* Diagnostic Procedure Only (Urgent) - Closed Specialty Diagnoses / Procedures Referred By Silvana t Referred To Contact XR IMAGING Diagnoses Acute pain of both knees Procedures XR KNEE GENERAL 4V AP BOTH/PA BOTH/LAT/MERC BILATERAL RADIOLOGIC EXAM KNEE COMPLETE 4/MORE VIEWS [facility] [address] [place] [address] [place] [address] Referral ID Status Reason Start Date Expiration Date V isits Requested Visits Authorized [id number] Closed Auto-Generate d Referral 07/22/2023 08/20/2024 1 1 [facility] for referral (narrative)* Diagnostic Procedure Only (Routine) - New Request Specialty Diagnoses / Procedures Referred By Silvana escobar Referred To Contact [facility] Diagnoses Encounter for screening mammogram for breast cancer Procedures FORTUNATO SCREENING W MITCHELL SCREENING DIGITAL BREAST TOMOSYNTHESIS BI SCREENING MAMMOGRAPHY BI 2-VIEW BREAST INC Paulo Antoine MD [address] [place] [address] [facility] [address] [email or web address] [address] Referral ID Status Reason Start Date Expiration Date Visits Requested Visits Authorized [id number] New Request Auto-Generat ed Referral 10/15/2023 11/13/2024 1 1 [facility] for referral (narrative)* Diagnostic Procedure Only (Urgent) - Closed Specialty Diagnoses / Procedures Referred By Auroraac t Referred To Contact XR IMAGING Diagnoses Acute pain of both knees Procedures XR KNEE GENERAL 4V AP BOTH/PA BOTH/LAT/MERC BILATERAL RADIOLOGIC EXAM KNEE COMPLETE 4/MORE VIEWS [facility] [address] [place] [address] [place] [address] Referral ID Status Reason Start Date Expiration Date V isits Requested Visits Authorized [id number] Closed Auto-Generate d Referral 07/22/2023 08/20/2024 1 1 [facility] for referral (narrative)* Diagnostic Procedure Only (Routine) - Closed Specialty Diagnoses / Procedures Referred By Silvana escobar Referred To Contact XR IMAGING Diagnoses Acute pain of right shoulder History of recent fall Procedures XR SHOULDER GENERAL 3V OR MORE AP/TRUE AP/OTHER RT X-RAY SHOULDER COMPLET MIN 2 VIEWS Paulo Scott MD [address] [place] [address] [place] [address] Referral ID Status Reason Start Date Expiration Date V isits Requested Visits Authorized [id number] Closed Auto-Generate d Referral 12/15/2020 01/14/2022 1 1 [facility] for referral (narrative)No reason for referral information availableWWright-[facility] Work Phone: [employer] for visit Narrative* Diagnostic Procedure Only (Routine) - Closed Specialty Diagnoses / Procedures Referred By Silvana escobar Referred To Contact [facility] Diagnoses Encounter for screening mammogram for breast cancer Procedures FORTUNATO SCREENING SCREENING MAMMOGRAPHY BI 2-VIEW BREAST INC CAD Paulo Scott MD [address] [place] [address] [facility] [address] [place] [address] Referral ID Status Reason Start Date Expiration Date V isits Requested Visits Authorized [id number] Closed Auto-Generate d Referral 08/22/2021 09/21/2022 1 1 [facility] for visit Narrative* Diagnostic Procedure Only (Urgent) - Closed Specialty Diagnoses / Procedures Referred By Contac t Referred To Contact XR IMAGING Diagnoses Acute pain of both knees Procedures XR KNEE GENERAL 4V AP BOTH/PA BOTH/LAT/MERC BILATERAL RADIOLOGIC EXAM KNEE COMPLETE 4/MORE VIEWS [facility] [address] [place] [address] [place] [address] Referral ID Status Reason Start Date Expiration Date V isits Requested Visits Authorized [id number] Closed Auto-Generate d Referral 07/22/2023 08/20/2024 1 1 [facility] for visit Narrative* Diagnostic Procedure Only (Routine) - Closed Specialty Diagnoses / Procedures Referred By Contac t Referred To Contact XR IMAGING Diagnoses Acute pain of right shoulder History of recent fall Procedures XR SHOULDER GENERAL 3V OR MORE AP/TRUE AP/OTHER RT X-RAY SHOULDER COMPLET MIN 2 VIEWS Paulo Scott MD [address] [place] [address] [place] [address] Referral ID Status Reason Start Date Expiration Date V isits Requested Visits Authorized [id number] Closed Auto-Generate d Referral 12/15/2020 01/14/2022 1 1 [facility] for visit Narrative* Diagnostic Procedure Only (Routine) - Closed Specialty Diagnoses / Procedures Referred By Contac t Referred To Contact BR IMAGING Diagnoses Encounter for screening mammogram for breast cancer Procedures FORTUNATO SCREENING W MITCHELL SCREENING DIGITAL BREAST TOMOSYNTHESIS BI SCREENING MAMMOGRAPHY BI 2-VIEW BREAST INC CAD Paulo Scott MD [address] [place] [address] [facility] Imaging [address] [place] [address] Referral ID Status Reason Start Date Expiration Date V isits Requested Visits Authorized [id number] Closed Auto-Generate d Referral 10/15/2023 11/13/2024 1 1 [facility] Reason for Referral Status Reason Specialty Diagnoses / Procedures Referred By Contact Referred To Contact [facility] Required Lab Diagnoses Family history of colon cancer Family history of gene mutation Personal history of colonic polyps Procedures Genetic Sendout: Common Hereditary Cancers Panel Quoc Diaz MD [address] [place] [address], [address] [place] [address] Specialty Diagnoses / Procedures Referred By Contac t Referred To Contact Diagnoses Ryan Giles MD [address] [place] [address] Referral ID Status Reason Start Date Expiration Date V isits Requested Visits Authorized [id number] Authorized 03/17/2022 03/16/2023 1 1 Specialty Diagnoses / Procedures Referred By Contac t Referred To Contact Diagnoses Strain of lumbar region, subsequent encounter Chronic bilateral low back pain with bilateral sciatica Norman Garcia APRN.CNP [address] [place] [address] Referral ID Status Reason Start Date Expiration Date Visits Re quested Visits Authorized [id number] Closed 1 1 Advance Directives No Advanced Directives Records FoundDocuments on File Type Date Recorded Patient Flight Engineer Performance Qualified Expl anation Power of Blow Mold Operator Documents on File Type Date Recorded Patient Flight Engineer Performance Qualified Expl anation Advance Directive(s) 10/26/2020 12:30 PM Advance Directive(s) 09/29/2020 11:26 AM Advance Directive(s) 06/24/2011 6:54 PM Documents on File Type Date Recorded Patient Flight Engineer Performance Qualified Expl anation Advance Directive(s) 10/26/2020 12:30 PM Advance Directive(s) 09/29/2020 11:26 AM Advance Directive(s) 06/24/2011 6:54 PM Advance Directive Response Recorded Date/ Time Advance Directives No March 21, 2016 4:58pm Living Will No September 18, 2021 1 2:12pm Power of Blow Mold Operator No September 18, 2021 12:12pm Documents on File Type Date Recorded Patient Flight Engineer Performance Qualified Expl anation Advance Directive(s) 06/24/2011 6:54 PM Advance Directive Response Recorded Date/ Time Advance Directives No March 21, 2016 3:58pm Living Will No April 24 5:17pm Power of Blow Mold Operator No April 24, 2022 5:17pm Advance Directive Response Recorded Date/ Time Name of Medical Power of Blow Mold Operator unsure May 05, 2022 1:24pm Advance Directives No March 21, 2016 3:58pm Living Will Yes May 05 023 1:24pm Power of Blow Mold Operator Yes May 05, 2022 1:24pm Advance Directive Response Recorded Date/ Time Name of Medical Power of Blow Mold Operator joshua Royal May 05, 2022 7:36pm Advance Directives No March 21, 2016 3:58pm Living Will Yes May 05, 023 7:36pm Power of Blow Mold Operator Yes May 05, 2022 7:36pm Documents on File Type Date Recorded Patient Flight Engineer Performance Qualified Expl anation Advance Directive(s) 06/24/2011 6:54 PM Advance Directive Response Recorded Date/ Time Name of Medical Power of Blow Mold Operator karo sanchez August 05, 2022 2:58pm Advance Directives No March 21, 2016 4:58pm Living Will Yes August 05, 2022 2 :58pm Power of Blow Mold Operator Yes August 05, 2022 2:58pm Advance Directive Response Recorded Date/ Time Name of Medical Power of Blow Mold Operator LUIS SANCHEZ April 21, 2023 9:33am Advance Directives No March 21, 2016 3:58pm Living Will Yes April 21 9:33am Power of Blow Mold Operator Yes April 21, 2023 9:33am Advance Directive Response Recorded Date/ Time Name of Medical Power of Blow Mold Operator LUIS SANCHEZ April 21, 2023 10:33am Advance Directives No March 21, 2016 4:58pm Living Will No June 19, 2023 12:34pm Power of Blow Mold Operator No June 18 12:34pm Advance Directive Response Recorded Date/ Time Living Will No June 19, 2023 12:34pm Do you have a Healthcare Power of Blow Mold Operator? No June 19, 2023 12:34pm Advance Directives No March 21, 2016 4:58pm Advance Directive Response Recorded Date/ Time Do you have a Healthcare Power of Blow Mold Operator? Yes August 22, 2024 3:26pm Advance Directives No March 21, 2016 4:58pm Advance Directive Response Recorded Date/ Time Do you have a Healthcare Power of Blow Mold Operator? No December 05, 2024 12:57pm Do you have a Healthcare Power of Blow Mold Operator? Yes August 22, 2024 3:26pm Advance Directives No March 21, 2016 4:58pm Advance Directive Response Recorded Date/ Time Do you have a Healthcare Power of Blow Mold Operator? No December 05, 2024 12:57pm Do you have a Healthcare Power of Blow Mold Operator? No December 27, 2024 3:34pm Advance Directives No March 21, 2016 4:58pm Advance Directive Response Recorded Date/ Time Do you have a Healthcare Power of Blow Mold Operator? No December 05, 2024 11:57am Do you have a Healthcare Power of Blow Mold Operator? No December 27, 2024 2:34pm Do you have a Healthcare Power of Blow Mold Operator? Yes January 13, 2025 10:33pm Advance Directives No March 21, 2016 3:58pm Chief Complaint and Reason for Visit Chief [...] for Visit Atherosclerotic hear t disease of [place] coronary artery without angina pectoris Essential hypertension Barretts esophagus Abdominal pain Chronic cough Chief Complaint 6 M FU 5 MO FU 6 M FU Reason for Visit Atherosclerotic hear t disease of [place] coronary artery without angina pectoris Essential hypertension [...] 2024 8 :59am DIARRHEA, ABDOMINAL PAIN April 08, 8:58am RIGHT KNEE April 09, 2024 1 [...] HIP June 18, 2024 10:5 7am RM June 18, 2024 11:1 4am 4 M FU June 18, 2024 12:5 9pm PAIN August 22, 2024 3:17p m Reason for Visit Admit Date Trochanteric bursitis, left hip June 10:57am Abdominal pain June 18, 2024 12:5 9pm Barretts esophagus June 18, 2024 12:5 9pm Chief Complaint Admit Date LEFT HIP June 18, 2024 10:5 7am RM June 18, 2024 11:1 4am 4 M FU June 18, 2024 12:5 9pm PAIN August 22, 2024 3:17p m 1 Y FU October 15, 2024 9:5 8am Reason for Visit Admit Date Trochanteric bursitis, left hip June 10:57am Abdominal pain June 18, 2024 12:5 9pm Barretts esophagus June 18, 2024 12:5 9pm Atherosclerotic heart diseas e of [place] coronary artery without angina pectoris October 15, 2024 9:58am Essential hypertension October 15, 2024 9:58am Chief Complaint Admit Date PAIN August 22, 2024 3:17p m 1 Y FU October 15, 2024 9:5 8am dizziness December 05, 2024 12:28pm Reason for Visit Admit Date Atherosclerotic heart diseas e of [place] coronary artery without angina pectoris October 15, 2024 9:58am Essential hypertension October 15, 2024 9:58am Chief Complaint Admit Date PAIN August 22, 2024 3:17p m 1 Y FU October 15, 2024 9:5 8am dizziness December 05, 2024 12:28pm 6 M FU-Abdominal pain ER on 12/09/24 Octo 2024 9:33am Chief Complaint Admit Date 1 Y FU October 15, 2024 9:5 8am dizziness December 05, 2024 12:28pm 6 M FU-Abdominal pain ER on 12/09/24 Octo 2024 9:33am GI BLEED/ACUTE ANEMIA December 27, 2024 2:42pm GI BLEED/ACUTE ANEMIA December 27, 2024 5:52pm PREOP December 28, 2024 5 :27am GI BLEED/ACUTE ANEMIA December 28, 2024 8:19am GI BLEED/ACUTE ANEMIA December 29, 2024 8:53am GI BLEED/ACUTE ANEMIA December 30, 2024 8:29am GI BLEED/ACUTE ANEMIA December 30, 2024 6:49pm GI BLEED/ACUTE ANEMIA December 31, 2024 9:29am GI BLEED/ACUTE ANEMIA January 01, 2025 12:23pm GI BLEED/ACUTE ANEMIA January 02, 2025 11:13am GI BLEED/ACUTE ANEMIA January 03, 2025 10:42am Reason for Visit Admit Date Atherosclerotic heart diseas e of [place] coronary artery without angina pectoris October 15, 2024 9:58am Essential hypertension October 15, 2024 9:58am Abdominal pain December 17, 2024 9: 33am Barretts esophagus December 17, 2024 9: 33am GERD (gastroesophageal reflux disease) O ct2024 9:33am Abnormal urinalysis December 27, 2024 2 :42pm Adverse effects of medication December 272024 2:42pm GI bleed December 27, 2024 2 :42pm Leukocytosis December 27, 2024 2 :42pm Acute anemia December 27, 2024 2 :42pm Hyperglycemia December 27, 2024 2 :42pm Lactic acidosis December 27, 2024 2 :42pm Chief Complaint Admit Date 1 Y FU October 15, 2024 9:5 8am dizziness December 05, 2024 12:28pm 6 M FU-Abdominal pain ER on 12/09/24Deco 2024 9:33am GI BLEED/ACUTE ANEMIA December 27, 2024 2:42pm GI BLEED/ACUTE ANEMIA December 27, 2024 5:52pm PREOP December 28, 2024 5 :27am GI BLEED/ACUTE ANEMIA December 28, 2024 8:19am GI BLEED/ACUTE ANEMIA December 29, 2024 8:53am GI BLEED/ACUTE ANEMIA December 30, 2024 8:29am GI BLEED/ACUTE ANEMIA December 30, 2024 6:49pm GI BLEED/ACUTE ANEMIA December 31, 2024 9:29am GI BLEED/ACUTE ANEMIA January 01, 2025 12:23pm GI BLEED/ACUTE ANEMIA January 02, 2025 11:13am GI BLEED/ACUTE ANEMIA January 03, 2025 10:42am LAB WORK January 04, 2025 5 :00am LAB WORK January 11, 2025 4 :00am LAB WORK January 13, 2025 5 :00am hyperglycemia January 13, 2025 1 1:14pm Family History No Family History Records Found [...] Common Hereditary Cancers Panel Quoc Diaz MD [address] [place] [address], [address] [place] [address] Reason Comments Medication Problem Reason Comments Patient Question Reason Comments F/U 6 months Reason Onset Date Comments Refill Request 11/01/2021 Reason Onset Date Comments Refill Request 02/19/2022 Reason Comments Results Reason Onset Date Comments Refill Request 03/19/2022 Reason Comments Face Swelling Reason Comments Hospital F/U Reason Comments [facility] HH, PT, plan of care FYI-No Action Needed Reason Comments [facility] HH, OT update/verbal order Reason Onset [...] or prosecute any alcohol or drug abuse patient.[facility] the event this information is protected by the Federal Confidentiality of Alcohol and Drug Abuse Patient Records regulations: The Federal rules restrict any use of the information to criminally investigate or prosecute any alcohol or drug abuse patient.[facility] the event this information is protected by the Federal Confidentiality of Alcohol and Drug Abuse Patient Records regulations: The Federal rules restrict any use of the information to criminally investigate or prosecute any alcohol or drug abuse patient.[facility] the event this information is protected by the Federal Confidentiality of Alcohol and Drug Abuse Patient Records regulations: The Federal rules restrict any use of the information to criminally investigate or prosecute any alcohol or drug abuse patient.[facility] the event this information is protected by the Federal Confidentiality of Alcohol and Drug Abuse Patient Records regulations: The Federal rules restrict any use of the information to criminally investigate or prosecute any alcohol or drug abuse patient.[facility] the event this information is protected by the Federal Confidentiality of Alcohol and Drug Abuse Patient Records regulations: The Federal rules restrict any use of the information to criminally investigate or prosecute any alcohol or drug abuse patient.[facility] the event this information is protected by the Federal Confidentiality of Alcohol and Drug Abuse Patient Records regulations: The Federal rules restrict any use of the information to criminally investigate or prosecute any alcohol or drug abuse patient.[facility] the event this information is protected by the Federal Confidentiality of Alcohol and Drug Abuse Patient Records regulations: The Federal rules restrict any use of the information to criminally investigate or prosecute any alcohol or drug abuse patient.[facility] the event this information is protected by the Federal Confidentiality of Alcohol and Drug Abuse Patient Records regulations: The Federal rules restrict any use of the information to criminally investigate or prosecute any alcohol or drug abuse patient.[facility] the event this information is protected by the Federal Confidentiality of Alcohol and Drug Abuse Patient Records regulations: The Federal rules restrict any use of the information to criminally investigate or prosecute any alcohol or drug abuse patient.[facility] the event this information is protected by the Federal Confidentiality of Alcohol and Drug Abuse Patient Records regulations: The Federal rules restrict any use of the information to criminally investigate or prosecute any alcohol or drug abuse patient.[facility] the event this information is protected by the Federal Confidentiality of Alcohol and Drug Abuse Patient Records regulations: The Federal rules restrict any use of the information to criminally investigate or prosecute any alcohol or drug abuse patient.[facility] the event this information is protected by the Federal Confidentiality of Alcohol and Drug Abuse Patient Records regulations: The Federal rules restrict any use of the information to criminally investigate or prosecute any alcohol or drug abuse patient.[facility] the event this information is protected by the Federal Confidentiality of Alcohol and Drug Abuse Patient Records regulations: The Federal rules restrict any use of the information to criminally investigate or prosecute any alcohol or drug abuse patient.[facility] the event this information is protected by the Federal Confidentiality of Alcohol and Drug Abuse Patient Records regulations: The Federal rules restrict any use of the information to criminally investigate or prosecute any alcohol or drug abuse patient.[facility] the event this information is protected by the Federal Confidentiality of Alcohol and Drug Abuse Patient Records regulations: The Federal rules restrict any use of the information to criminally investigate or prosecute any alcohol or drug abuse patient.[facility] the event this information is protected by the Federal Confidentiality of Alcohol and Drug Abuse Patient Records regulations: The Federal rules restrict any use of the information to criminally investigate or prosecute any alcohol or drug abuse patient.[facility] the event this information is protected by the Federal Confidentiality of Alcohol and Drug Abuse Patient Records regulations: The Federal rules restrict any use of the information to criminally investigate or prosecute any alcohol or drug abuse patient.[facility] the event this information is protected by the Federal Confidentiality of Alcohol and Drug Abuse Patient Records regulations: The Federal rules restrict any use of the information to criminally investigate or prosecute any alcohol or drug abuse patient.[facility]In the event this information is protected by the Federal Confidentiality of Alcohol and Drug Abuse Patient Records regulations: The Federal rules restrict any use of the information to criminally investigate or prosecute any alcohol or drug abuse patient.[facility] the event this information is protected by the Federal Confidentiality of Alcohol and Drug Abuse Patient Records regulations: The Federal rules restrict any use of the information to criminally investigate or prosecute any alcohol or drug abuse patient.[facility]In the event this information is protected by the Federal Confidentiality of Alcohol and Drug Abuse Patient Records regulations: The Federal rules restrict any use of the information to criminally investigate or prosecute any alcohol or drug abuse patient.[facility] the event this information is protected by the Federal Confidentiality of Alcohol and Drug Abuse Patient Records regulations: The Federal rules restrict any use of the information to criminally investigate or prosecute any alcohol or drug abuse patient.[facility] the event this information is protected by the Federal Confidentiality of Alcohol and Drug Abuse Patient Records regulations: The Federal rules restrict any use of the information to criminally investigate or prosecute any alcohol or drug abuse patient.[facility]In the event this information is protected by the Federal Confidentiality of Alcohol and Drug Abuse Patient Records regulations: The Federal rules restrict any use of the information to criminally investigate or prosecute any alcohol or drug abuse patient.[facility]In the event this information is protected by the Federal Confidentiality of Alcohol and Drug Abuse Patient Records regulations: The Federal rules restrict any use of the information to criminally investigate or prosecute any alcohol or drug abuse patient.[facility]In the event this information is protected by the Federal Confidentiality of Alcohol and Drug Abuse Patient Records regulations: The Federal rules restrict any use of the information to criminally investigate or prosecute any alcohol or drug abuse patient.[facility]In the event this information is protected by the Federal Confidentiality of Alcohol and Drug Abuse Patient Records regulations: The Federal rules restrict any use of the information to criminally investigate or prosecute any alcohol or drug abuse patient.[facility]In the event this information is protected by the Federal Confidentiality of Alcohol and Drug Abuse Patient Records regulations: The Federal rules restrict any use of the information to criminally investigate or prosecute any alcohol or drug abuse patient.[facility]In the event this information is protected by the Federal Confidentiality of Alcohol and Drug Abuse Patient Records regulations: The Federal rules restrict any use of the information to criminally investigate or prosecute any alcohol or drug abuse patient.[facility]In the event this information is protected by the Federal Confidentiality of Alcohol and Drug Abuse Patient Records regulations: The Federal rules restrict any use of the information to criminally investigate or prosecute any alcohol or drug abuse patient.[facility]In the event this information is protected by the Federal Confidentiality of Alcohol and Drug Abuse Patient Records regulations: The Federal rules restrict any use of the information to criminally investigate or prosecute any alcohol or drug abuse patient.[facility]In the event this information is protected by the Federal Confidentiality of Alcohol and Drug Abuse Patient Records regulations: The Federal rules restrict any use of the information to criminally investigate or prosecute any alcohol or drug abuse patient.[facility]In the event this information is protected by the Federal Confidentiality of Alcohol and Drug Abuse Patient Records regulations: The Federal rules restrict any use of the information to criminally investigate or prosecute any alcohol or drug abuse patient.[facility]In the event this information is protected by the Federal Confidentiality of Alcohol and Drug Abuse Patient Records regulations: The Federal rules restrict any use of the information to criminally investigate or prosecute any alcohol or drug abuse patient.[facility]In the event this information is protected by the Federal Confidentiality of Alcohol and Drug Abuse Patient Records regulations: The Federal rules restrict any use of the information to criminally investigate or prosecute any alcohol or drug abuse patient.[facility]In the event this information is protected by the Federal Confidentiality of Alcohol and Drug Abuse Patient Records regulations: The Federal rules restrict any use of the information to criminally investigate or prosecute any alcohol or drug abuse patient.[facility]In the event this information is protected by the Federal Confidentiality of Alcohol and Drug Abuse Patient Records regulations: The Federal rules restrict any use of the information to criminally investigate or prosecute any alcohol or drug abuse patient.[facility]In the event this information is protected by the Federal Confidentiality of Alcohol and Drug Abuse Patient Records regulations: The Federal rules restrict any use of the information to criminally investigate or prosecute any alcohol or drug abuse patient.[facility]In the event this information is protected by the Federal Confidentiality of Alcohol and Drug Abuse Patient Records regulations: The Federal rules restrict any use of the information to criminally investigate or prosecute any alcohol or drug abuse patient.[facility]In the event this information is protected by the Federal Confidentiality of Alcohol and Drug Abuse Patient Records regulations: The Federal rules restrict any use of the information to criminally investigate or prosecute any alcohol or drug abuse patient.[facility]In the event this information is protected by the Federal Confidentiality of Alcohol and Drug Abuse Patient Records regulations: The Federal rules restrict any use of the information to criminally investigate or prosecute any alcohol or drug abuse patient.[facility]In the event this information is protected by the Federal Confidentiality of Alcohol and Drug Abuse Patient Records regulations: The Federal rules restrict any use of the information to criminally investigate or prosecute any alcohol or drug abuse patient.[facility]In the event this information is protected by the Federal Confidentiality of Alcohol and Drug Abuse Patient Records regulations: The Federal rules restrict any use of the information to criminally investigate or prosecute any alcohol or drug abuse patient.[facility]In the event this information is protected by the Federal Confidentiality of Alcohol and Drug Abuse Patient Records regulations: The Federal rules restrict any use of the information to criminally investigate or prosecute any alcohol or drug abuse patient.[facility]In the event this information is protected by the Federal Confidentiality of Alcohol and Drug Abuse Patient Records regulations: The Federal rules restrict any use of the information to criminally investigate or prosecute any alcohol or drug abuse patient.[facility]In the event this information is protected by the Federal Confidentiality of Alcohol and Drug Abuse Patient Records regulations: The Federal rules restrict any use of the information to criminally investigate or prosecute any alcohol or drug abuse patient.[facility]In the event this information is protected by the Federal Confidentiality of Alcohol and Drug Abuse Patient Records regulations: The Federal rules restrict any use of the information to criminally investigate or prosecute any alcohol or drug abuse patient.[facility] the event this information is protected by the Federal Confidentiality of Alcohol and Drug Abuse Patient Records regulations: The Federal rules restrict any use of the information to criminally investigate or prosecute any alcohol or drug abuse patient.[facility] the event this information is protected by the Federal Confidentiality of Alcohol and Drug Abuse Patient Records regulations: The Federal rules restrict any use of the information to criminally investigate or prosecute any alcohol or drug abuse patient.[facility] the event this information is protected by the Federal Confidentiality of Alcohol and Drug Abuse Patient Records regulations: The Federal rules restrict any use of the information to criminally investigate or prosecute any alcohol or drug abuse patient.[facility] the event this information is protected by the Federal Confidentiality of Alcohol and Drug Abuse Patient Records regulations: The Federal rules restrict any use of the information to criminally investigate or prosecute any alcohol or drug abuse patient.[facility] HospitalIn the event this information is protected by the Federal Confidentiality of Alcohol and Drug Abuse Patient Records regulations: The Federal rules restrict any use of the information to criminally investigate or prosecute any alcohol or drug abuse patient.[facility]In the event this information is protected by the Federal Confidentiality of Alcohol and Drug Abuse Patient Records regulations: The Federal rules restrict any use of the information to criminally investigate or prosecute any alcohol or drug abuse patient.[facility] HospitalIn the event this information is protected by the Federal Confidentiality of Alcohol and Drug Abuse Patient Records regulations: The Federal rules restrict any use of the information to criminally investigate or prosecute any alcohol or drug abuse patient.[facility] the event this information is protected by the Federal Confidentiality of Alcohol and Drug Abuse Patient Records regulations: The Federal rules restrict any use of the information to criminally investigate or prosecute any alcohol or drug abuse patient.[facility] the event this information is protected by the Federal Confidentiality of Alcohol and Drug Abuse Patient Records regulations: The Federal rules restrict any use of the information to criminally investigate or prosecute any alcohol or drug abuse patient.[facility]In the event this information is protected by the Federal Confidentiality of Alcohol and Drug Abuse Patient Records regulations: The Federal rules restrict any use of the information to criminally investigate or prosecute any alcohol or drug abuse patient.[facility] the event this information is protected by the Federal Confidentiality of Alcohol and Drug Abuse Patient Records regulations: The Federal rules restrict any use of the information to criminally investigate or prosecute any alcohol or drug abuse patient.[facility] HospitalIn the event this information is protected by the Federal Confidentiality of Alcohol and Drug Abuse Patient Records regulations: The Federal rules restrict any use of the information to criminally investigate or prosecute any alcohol or drug abuse patient.[facility] HospitalIn the event this information is protected by the Federal Confidentiality of Alcohol and Drug Abuse Patient Records regulations: The Federal rules restrict any use of the information to criminally investigate or prosecute any alcohol or drug abuse patient.[facility] HospitalIn the event this information is protected by the Federal Confidentiality of Alcohol and Drug Abuse Patient Records regulations: The Federal rules restrict any use of the information to criminally investigate or prosecute any alcohol or drug abuse patient.[facility] HospitalIn the event this information is protected by the Federal Confidentiality of Alcohol and Drug Abuse Patient Records regulations: The Federal rules restrict any use of the information to criminally investigate or prosecute any alcohol or drug abuse patient.[facility] Care Teams (unrecognized sec tion and content) Hand Candle Dipper Relationship Specialty Start Date End Date Paulo Scott MD [address] [place] [address] PCP - General 02/20/06 Hand Candle Dipper Relationship Specialty Start Date End Date Paulo Scott MD [address] [place] [address] PCP - General 02/20/06 Hand Candle Dipper Relationship Specialty Start Date End Date Paulo Scott MD [address] [place] [address] PCP - General 02/20/06 Hand Candle Dipper Relationship Specialty Start Date End Date Paulo Scott MD [facility] [place] [address] PCP - General 02/20/06 Hand Candle Dipper Relationship Specialty Start Date End Date Paulo Scott MD [address] [place] [address] PCP - General 02/20/06 Team Status: Active [...] Dr. Rajinder Alatorre DO Emergency Provider Active Hand Candle Dipper Relationship Specialty Start Date End Date Paulo Scott MD [address] [place] [address] PCP - General 02/20/06 Team Status: Inactive Member Role Status Dates Dr. Paulo Scott MD Primary Care Provider Active Dr. Rajinder Alatorre DO Attending Provider, Emergency Provider Active Team Status: Active Member Role Status Dates Dr. Paulo Scott MD Primary Care Provider Active Dr. Ellie Mullins , Emergency Provider Active Dr. Yuridia Bernabe MD [...] Care Provider Active Dr. Ellie Mullins , Emergency Provider Active Dr. Yuridia Bernabe MD [...] Shelia Campos , DO Attending Provider Active Hand Candle Dipper Relationship Specialty Start Date End Date Paulo Scott MD [facility] [place] [address] PCP - General 02/20/06 Hand Candle Dipper Relationship Specialty Start Date End Date Paulo Scott MD [facility] [place] [address] PCP - General 02/20/06 Hand Candle Dipper Relationship Specialty Start Date End Date Paulo Scott MD [address] [place] [address] PCP - General 02/20/06 Hand Candle Dipper Relationship Specialty Start Date End Date Paulo Scott MD [address] [place] [address] PCP - General 02/20/06 Hand Candle Dipper Relationship Specialty Start Date End Date Paulo Scott MD [address] [place] [address] PCP - General 02/20/06 Hand Candle Dipper Relationship Specialty Start Date End Date Paulo Scott MD [address] [place] [address] PCP - General 02/20/06 Hand Candle Dipper Relationship Specialty Start Date End Date Paulo Scott MD [address] [place], [place] [address] PCP - General 02/20/06 Hand Candle Dipper Relationship Specialty Start Date End Date Paulo Scott MD [address] [place], [place] [address] PCP - General 02/20/06 Team Status: Inactive Member Role Status Dates Dr. Paulo Scott MD Primary Care Provider, Referr ing Provider Active Suzie Lewis DESIGNER ARCHITECT, DESIGNER ARCHITECT-C Attending Provider Active Team Status: Inactive Member [...] Casper DO Attending Provider, Referring Provider Active Hand Candle Dipper Relationship Specialty Start Date End Date Paulo Scott MD [address] [place], [place] [address] PCP - General 02/20/06 Hand Candle Dipper Relationship Specialty Start Date End Date Paulo Scott MD [address] [place] [address] PCP - General 02/20/06 Hand Candle Dipper Relationship Specialty Start Date End Date Paulo Scott MD [address] [place] [address] PCP - General 02/20/06 Hand Candle Dipper Relationship Specialty Start Date End Date Paulo Scott MD [address] [place] [address] PCP - General 02/20/06 Hand Candle Dipper Relationship Specialty Start Date End Date Paulo Scott MD [address] [place] [address] PCP - General 02/20/06 Team Status: Inactive Member Role Status Dates Dr. Paulo Scott MD Primary Care Provider, Referr ing Provider Active Ellen Estrella DESIGNER ARCHITECT, DESIGNER ARCHITECT-C Attending Provider Active Team Status: Active Member Role Status Dates Dr. Paulo Scott MD Primary Care Provider Active Dr. Raul Casper DO Attending Provid er, Referring Provider, Other Provider Active Team Status: Inactive Member Role Status Dates Dr. Paulo Scott MD Primary Care Provider Active Dr. Stew Garza DO Emergency Provider Active Hand Candle Dipper Relationship Specialty Start Date End Date Paulo Scott MD [address] [place] [address] PCP - General 02/20/06 Hand Candle Dipper Relationship Specialty Start Date End Date Paulo Scott MD [address] [place] [address] PCP - General 02/20/06 Hand Candle Dipper Relationship Specialty Start Date End Date Paulo Scott MD [address] [place] [address] PCP - General 02/20/06 Hand Candle Dipper Relationship Specialty Start Date End Date Paulo Scott MD [address] [place] [address] PCP - General 02/20/06 Hand Candle Dipper Relationship Specialty Start Date End Date Paulo Scott MD [address] [place] [address] PCP - General 02/20/06 Hand Candle Dipper Relationship Specialty Start Date End Date Paulo Scott MD [address] [place] [address] PCP - General 02/20/06 Hand Candle Dipper Relationship Specialty Start Date End Date Paulo Scott MD [address] [place] [address] PCP - General 02/20/06 Hand Candle Dipper Relationship Specialty Start Date End Date Paulo Scott MD [address] [place] [address] PCP - General 02/20/06 Hand Candle Dipper Relationship Specialty Start Date End Date Paulo Scott MD [address] [place] [address] PCP - General 02/20/06 Hand Candle Dipper Relationship Specialty Start Date End Date Paulo Scott MD [address] [place] [address] PCP - General 02/20/06 Hand Candle Dipper Relationship Specialty Start Date End Date Paulo Scott MD [address] [facility] [place] [address] PCP - General 02/20/06 Hand Candle Dipper Relationship Specialty Start Date End Date Paulo Scott MD [address] [facility] [place] [address] PCP - General 02/20/06 Hand Candle Dipper Relationship Specialty Start Date End Date Paulo Scott MD [address] [place] [address] PCP - General 02/20/06 Hand Candle Dipper Relationship Specialty Start Date End Date Paulo Scott MD [address] [place] [address] PCP - General 02/20/06 Hand Candle Dipper Relationship Specialty Start Date End Date Paulo Scott MD [address] [place] [address] PCP - General 02/20/06 Juan Rodriguez, MANAGER CAR.COLLECTIONS REP [address] [place] [address] [facility] Up [facility] Internal Medicine 02/23/24 Norman Garcia, MANAGER CAR.POCKET CREASER [address] [place] [address] Pick Up Operator Internal Medicine 02/23/24 Hand Candle Dipper Relationship Specialty Start Date End Date Paulo Scott MD [address] [place] [address] PCP - General 02/20/06 Juan Rodriguez, MANAGER CAR.COLLECTIONS REP [address] [place] [address] Pick Up Operator Internal Medicine 02/23/24 Norman Garcia MANAGER CAR.POCKET CREASER [address] [place] [address] [facility] Internal Medicine 02/23/24 Hand Candle Dipper Relationship Specialty Start Date End Date Paulo Scott MD [address] [place] [address] PCP - General 02/20/06 Juan Rodriguez, GIDEON.COLLECTIONS REP [address] [place] [address] [facility] Internal Medicine 02/23/24 Norman Garcia MANAGER CAR.POCKET CREASER [address] [place] [address] [facility] Internal Medicine 02/23/24 Team Status: Active Member [...] August 22, 2024 End: August 22, 2024 Hand Candle Dipper Relationship Specialty Start Date End Date Paulo Scott MD [address] [place], [place] [address] PCP - General 02/20/06 Norman Garcia, MANAGER CAR.POCKET CREASER [address] [place], [place] [id number] Pick Up Operator Internal Medicine 06/08/24 Juan Rodriguez, MANAGER CAR.COLLECTIONS REP [address] [place], [place] [id number] [facility] Internal Medicine 08/04/24 Hand Candle Dipper Relationship Specialty Start Date End Date Paulo Scott MD [address] [facility] [place] [address] PCP - General 02/20/06 Norman Garcia, MANAGER CAR.POCKET CREASER [address] [facility] [place] [address] Pick Up Operator Internal Medicine 06/08/24 Juan Rodriguez, MANAGER CAR.COLLECTIONS REP [address] [facility] [place] [address] [facility] Internal Medicine 08/04/24 Hand Candle Dipper Relationship Specialty Start Date End Date Paulo Scott MD [address] [facility] [place] [address] PCP - General 02/20/06 Norman Garcia MANAGER CAR.POCKET CREASER [address] [facility] [place] [address] Pick Up Operator Internal Medicine 06/08/24 Juan Rodriguez, MANAGER CAR.COLLECTIONS REP [address] [facility] [place] [address] [facility] Internal Medicine 08/04/24 Hand Candle Dipper Relationship Specialty Start Date End Date Paulo Scott MD [address] [facility] [place] [address] PCP - General 02/20/06 Norman Garcia MANAGER CAR.POCKET CREASER [address] [facility] [place] [address] Pick Up Operator Internal Medicine 06/08/24 Juan Rodriguez, MANAGER CAR.COLLECTIONS REP [address] [facility] [place] [address] Pick Up Operator Internal Medicine 08/04/24 Hand Candle Dipper Relationship Specialty Start Date End Date Paulo cSott MD [address] [facility] [place] [address] PCP - General 02/20/06 Norman Garcia, MANAGER CAR.POCKET CREASER [address] [facility] [place] [address] Pick Up Operator Internal Medicine 06/08/24 Juan Rodriguez, MANAGER CAR.COLLECTIONS REP [address] [facility] [place] [address] [facility] Internal Medicine 08/04/24 Hand Candle Dipper Relationship Specialty Start Date End Date Paulo Scott MD [address] [facility] [place] [address] PCP - General 02/20/06 Norman Garcia, MANAGER CAR.POCKET CREASER [address] [facility] [place] [address] Pick Up Operator Internal Medicine 06/08/24 Juan Rodriguez, MANAGER CAR.COLLECTIONS REP [address] [facility] [place] [address] Pick Up Operator Internal Medicine 08/04/24 Team Status: Active [...] October 15, 2024 End: October 15, 2024 Hand Candle Dipper Relationship Specialty Start Date End Date Paulo Scott MD [address] [place], [place] [address] PCP - General 02/20/06 Norman Garcia APRN.POCKET CREASER [address] [place] [address] Pick Up Operator Internal Medicine 06/08/24 Juan Rodriguez, MANAGER CAR.COLLECTIONS REP [address] [facility] [place] [address] [facility] Internal Medicine 08/04/24 Hand Candle Dipper Relationship Specialty Start Date End Date Paulo Scott MD [address] [facility] [place] [address] PCP - General 02/20/06 Norman Garcia, MANAGER CAR.POCKET CREASER [address] [facility] [place] [address] Pick Up Operator Internal Medicine 06/08/24 Juan Rodriguez, MANAGER CAR.COLLECTIONS REP [address] [facility] [place] [address] [facility] Internal Medicine 08/04/24 Hand Candle Dipper Relationship Specialty Start Date End Date Paulo Scott MD [address] [facility] [place] [address] PCP - General 02/20/06 Norman Garcia, MANAGER CAR.POCKET CREASER [address] [facility] [place] [address] [facility] Internal Medicine 06/08/24 Juan Rodriguez, MANAGER CAR.COLLECTIONS REP [address] [facility] [place] [address] [facility] Internal Medicine 08/04/24 Team Status: Active Member Role/Relationship Status Dates Dr. Paulo Scott MD Primary care physician Active Team Status: Inactive Member Role/Relationship Status Dates Dr. Paulo Scott MD Primary care physician Active Start: August 22, 2024 End: August 22, 2024 Dr. Deepak Mendez MD Attending physician Active Start: August 22, 2024 End: August 22, 2024 Dr. Deepak Mendez MD Referring Provider Active Start: August 22, 2024 End: August 22, 2024 Dr. Deepak Mendez MD Emergency Department Physician Active Start: August 22, 2024 End: August 22, 2024 Team Status: Inactive Member Role/Relationship Status Dates Dr. Paulo Scott MD Primary care physician Active Start: October 15, 2024 End: October 15, 2024 Dr. Paulo Scott MD Referring Provider Active Start: October 15, 2024 End: October 15, 2024 Gina CASTANEDA, PA Attending physician Active Start: October 15, 2024 End: October 15, 2024 Team Status: Inactive Member Role/Relationship Status Dates Dr. Paulo Scott MD Primary care physician Active Start: December 05, 2024 End: December 05, 2024 Dr. Shanika Galicia MD Attending physician Active Start: December 05, 2024 End: December 05, 2024 Dr. Shanika Galicia MD Emergency Departmen t Physician Active Start: December 05, 2024 End: December 05, 2024 Team Status: Inactive Member Role/Relationship Status Dates Dr. Paulo Scott MD Primary care physician Active Start: December 17, 2024 End: December 17, 2024 Dr. Paulo Scott MD Referring Provider Active Start: December 17, 2024 End: December 17, 2024 LEONEL Esposito Attending physician Active Start: December 17, 2024 End: December 17, 2024 Team Status: Inactive Member Role/Relationship Status Dates Dr. Paulo Scott MD Primary care physician Active Start: October 15, 2024 End: October 15, 2024 Dr. Paulo Scott MD Referring Provider Active Start: October 15, 2024 End: October 15, 2024 Gina Mary PA, PA Attending physician Active Start: October 15, 2024 End: October 15, 2024 Team Status: Inactive Member Role/Relationship Status Dates Dr. Paulo Scott MD Primary care physician Active Start: December 05, 2024 End: December 05, 2024 Dr. Shanika Galicia MD Attending physician Active Start: December 05, 2024 End: December 05, 2024 Dr. Shanika Galicia MD Emergency Departmen t Physician Active Start: December 05, 2024 End: December 05, 2024 Team Status: Inactive Member Role/Relationship Status Dates Dr. Paulo Scott MD Primary care physician Active Start: December 17, 2024 End: December 17, 2024 Dr. Paulo Scott MD Referring Provider Active Start: December 17, 2024 End: December 17, 2024 LEONEL Esposito Attending physician Active Start: December 17, 2024 End: December 17, 2024 Team Status: Inactive Member Role/Relationship Status Dates Dr. Paulo Scott MD Primary care physician Active Start: December 27, 2024 End: January 03, 2025 Dr. Shashi Veronica DO Emergency Department Physician Active Start: December 27, 2024 End: January 03, 2025 Dr. Shelia Campos , Admitting physician Active Start: December 27, 2024 End: January 03, 2025 Dr. Shelia Campos DO Nurse Practitioner Active S tart: December 27, 2024 End: January 03, 2025 Dr. Clifton Wells MD Attending physician Active Start: December 27, 2024 End: January 03, 2025 Dr. Clifton Wells MD Nurse Practitioner Active Start: December 27, 2024 End: January 03, 2025 Dr. Raul Casper , Nurse Practitioner Active Start: December 27, 2024 End: January 03, 2025 Sandie Rodriguez NP-C Nurse Practitioner Active S tart: December 27, 2024 End: January 03, 2025 Jacquelin Odell DESIGNER ARCHITECT-C Nurse Practitioner Active Start: December 27, 2024 End: January 03, 2025 LEONEL Esposito Nurse Practitioner Active Start: December 27, 2024 End: January 03, 2025 Dr. Keshav Elizondo MD Nurse Practitioner Active Start: December 27, 2024 End: January 03, 2025 Team Status: Active Member Role/Relationship Status Dates Dr. Paulo Scott MD Primary care physician Active Start: December 27, 2024 Dr. Shashi Veronica DO Emergency Department Physician Active Start: December 27, 2024 Dr. Shelia Campos DO Admitting physician Active Start: December 27, 2024 Dr. Shelia Campos DO Nurse Practitioner Active S tart: December 27, 2024 Dr. Clifton Wells MD Nurse Practitioner Active Start: December 27, 2024 Dr. Raul Casper DO Attending physician Active Start: December 27, 2024 Dr. Raul Casper DO Nurse Practitioner Active Start: December 27, 2024 AR RoseC Nurse Practitioner Active S tart: December 27, 2024 AR PorrasC Nurse Practitioner Active Start: December 27, 2024 LEONEL Esposito Nurse Practitioner Active Start: December 27, 2024 Dr. Keshav Elizondo MD Nurse Practitioner Active Start: December 27, 2024 Team Status: Active Member Role/Relationship Status Dates Dr. Paulo Scott MD Primary care physician Active Start: December 28, 2024 Dr. Julian Paul MD Attending physician Active Start: December 28, 2024 Dr. Julian Paul MD Referring Provider Active S tart: December 28, 2024 Team Status: Active Member Role/Relationship Status Dates Dr. Paulo Scott MD Primary care physician Active Start: December 28, 2024 Dr. Shashi Veronica , Emergency Department Physician Active Start: December 28, 2024 Dr. Shelia Campos DO Admitting physician Active Start: December 28, 2024 Dr. Shelia Campos DO Nurse Practitioner Active S tart: December 28, 2024 Dr. Clifton Wells MD Nurse Practitioner Active Start: December 28, 2024 Dr. Raul Casper DO Nurse Practitioner Active Start: December 28, 2024 AR RoseC Nurse Practitioner Active S tart: December 28, 2024 AR PorrasC Nurse Practitioner Active Start: December 28, 2024 LEONEL Esposito Nurse Practitioner Active Start: December 28, 2024 Dr. Keshav Elizondo MD Attending physician Active Start: December 28, 2024 Dr. Keshav Elizondo MD Nurse Practitioner Active Start: December 28, 2024 Team Status: Active Member Role/Relationship Status Dates Dr. Paulo Scott MD Primary care physician Active Start: December 28, 2024 Dr. Raul Casper DO Attending physician Active Start: December 28, 2024 Team Status: Active Member Role/Relationship Status Dates Dr. Paulo Scott MD Primary care physician Active Start: December 29, 2024 Dr. Shashi Veronica , DO Emergency Department Physician Active Start: December 29, 2024 Dr. Shelia Campos DO Admitting physician Active Start: December 29, 2024 Dr. Shelia Campos , Nurse Practitioner Active S tart: December 29, 2024 Dr. Clifton Wells MD Nurse Practitioner Active Start: December 29, 2024 Dr. Raul Casper , Nurse Practitioner Active Start: December 29, 2024 AR RoseC Nurse Practitioner Active S tart: December 29, 2024 AR PorrasC Nurse Practitioner Active Start: December 29, 2024 LEONEL Esposito Nurse Practitioner Active Start: December 29, 2024 Dr. Keshav Elizondo MD Attending physician Active Start: December 29, 2024 Dr. Keshav Elizondo MD Nurse Practitioner Active Start: December 29, 2024 Team Status: Active Member Role/Relationship Status Dates Dr. Paulo Scott MD Primary care physician Active Start: December 30, 2024 Dr. Shashi Veronica DO Emergency Department Physician Active Start: December 30, 2024 Dr. Shelia Campos DO Admitting physician Active Start: December 30, 2024 Dr. Shelia Campos DO Nurse Practitioner Active S tart: December 30, 2024 Dr. Clifton Wells MD Nurse Practitioner Active Start: December 30, 2024 Dr. Raul Casper DO Nurse Practitioner Active Start: December 30, 2024 AR RoseC Nurse Practitioner Active S tart: December 30, 2024 AR PorrasC Nurse Practitioner Active Start: December 30, 2024 LEONEL Esposito Nurse Practitioner Active Start: December 30, 2024 Dr. Keshav Elizondo MD Attending physician Active Start: December 30, 2024 Dr. Keshav Elizondo MD Nurse Practitioner Active Start: December 30, 2024 Team Status: Active Member Role/Relationship Status Dates Dr. Paulo Scott MD Primary care physician Active Start: December 30, 2024 Dr. Julian Paul MD Attending physician Active Start: December 30, 2024 Team Status: Active Member Role/Relationship Status Dates Dr. Paulo Scott MD Primary care physician Active Start: December 30, 2024 Dr. Shashi Veronica DO Emergency Department Physician Active Start: December 30, 2024 Dr. Shelia Campos , DO Admitting physician Active Start: December 30, 2024 Dr. Shelia Campos , DO Nurse Practitioner Active S tart: December 30, 2024 Dr. Clifton Wells MD Nurse Practitioner Active Start: December 30, 2024 Dr. Raul Casper , DO Attending physician Active Start: December 30, 2024 Dr. Raul Casper , Nurse Practitioner Active Start: December 30, 2024 AR RoseC Nurse Practitioner Active S tart: December 30, 2024 AR PorrasC Nurse Practitioner Active Start: December 30, 2024 LEONEL Esposito Nurse Practitioner Active Start: December 30, 2024 Dr. Keshav Elizondo MD Nurse Practitioner Active Start: December 30, 2024 Team Status: Active Member Role/Relationship Status Dates Dr. Paulo Scott MD Primary care physician Active Start: December 31, 2024 Dr. Shashi Veronica , DO Emergency Department Physician Active Start: December 31, 2024 Dr. Shelia Campos , Admitting physician Active Start: December 31, 2024 Dr. Shelia Campos , Nurse Practitioner Active S tart: December 31, 2024 Dr. Clifton Wells MD Nurse Practitioner Active Start: December 31, 2024 Dr. Raul Casper , Nurse Practitioner Active Start: December 31, 2024 AR RoseC Nurse Practitioner Active S tart: December 31, 2024 VERA Porras Nurse Practitioner Active Start: December 31, 2024 LEONEL Esposito Nurse Practitioner Active Start: December 31, 2024 Dr. Keshav Elizondo MD Attending physician Active Start: December 31, 2024 Dr. Keshav Elizondo MD Nurse Practitioner Active Start: December 31, 2024 Team Status: Active Member Role/Relationship Status Dates Dr. Paulo Scott MD Primary care physician Active Start: January 01, 2025 Dr. Shashi Veronica , DO Emergency Department Physician Active Start: January 01, 2025 Dr. Shelia Campos , DO Admitting physician Active Start: January 01, 2025 Dr. Shelia Campos , DO Nurse Practitioner Active S tart: January 01, 2025 Dr. Clifton Wells MD Attending physician Active Start: January 01, 2025 Dr. Clifton Wells MD Nurse Practitioner Active Start: January 01, 2025 Dr. Raul Casper , DO Nurse Practitioner Active Start: January 01, 2025 AR RoseC Nurse Practitioner Active S tart: January 01, 2025 AR PorrasC Nurse Practitioner Active Start: January 01, 2025 LEONEL Esposito Nurse Practitioner Active Start: January 01, 2025 Dr. Keshav Elizondo MD Nurse Practitioner Active Start: January 01, 2025 Team Status: Active Member Role/Relationship Status Dates Dr. Paulo Scott MD Primary care physician Active Start: January 02, 2025 Dr. Shashi Veronica , DO Emergency Department Physician Active Start: January 02, 2025 Dr. Shelia Campos , DO Admitting physician Active Start: January 02, 2025 Dr. Shelia Campos , DO Nurse Practitioner Active S tart: January 02, 2025 Dr. Clifton Wells MD Attending physician Active Start: January 02, 2025 Dr. Clifton Wells MD Nurse Practitioner Active Start: January 02, 2025 Dr. Raul Casper , DO Nurse Practitioner Active Start: January 02, 2025 AR RoseC Nurse Practitioner Active S tart: January 02, 2025 AR PorrasC Nurse Practitioner Active Start: January 02, 2025 LEONEL Esposito Nurse Practitioner Active Start: January 02, 2025 Dr. Keshav Elizondo MD Nurse Practitioner Active Start: January 02, 2025 Team Status: Active Member Role/Relationship Status Dates Dr. Paulo Scott MD Primary care physician Active Start: January 03, 2025 Dr. Shashi Veronica , DO Emergency Department Physician Active Start: January 03, 2025 Dr. Shelia Campos DO Admitting physician Active Start: January 03, 2025 Dr. Shelia Campos , Nurse Practitioner Active S tart: January 03, 2025 Dr. Clifton Wells MD Attending physician Active Start: January 03, 2025 Dr. Clifton Wells MD Nurse Practitioner Active Start: January 03, 2025 Dr. Raul Casper DO Nurse Practitioner Active Start: January 03, 2025 VERA Rose Nurse Practitioner Active S tart: January 03, 2025 VERA Porras Nurse Practitioner Active Start: January 03, 2025 LEONEL Esposito Nurse Practitioner Active Start: January 03, 2025 Dr. Keshav Elizondo MD Nurse Practitioner Active Start: January 03, 2025 Team Status: Active Member Role/Relationship Status Dates Dr. Paulo Scott MD Primary care physician Active Start: January 04, 2025 Seymour HALE MD Attending physician Active Start: January 04, 2025 Team Status: Active Member Role/Relationship Status Dates Dr. Paulo Scott MD Primary care physician Active Start: January 11, 2025 Seymour HALE MD Attending physician Active Start: January 11, 2025 Team Status: Active Member Role/Relationship Status Dates Dr. Seymour Tripp MD Primary care physician Activ e Team Status: Active Member Role/Relationship Status Dates Dr. Paulo Scott MD Primary care physician Active Start: December 27, 2024 Dr. Shashi Veronica DO Emergency Department Physician Active Start: December 27, 2024 Dr. Shelia Campos DO Admitting physician Active Start: December 27, 2024 Dr. Shelia Campos , Nurse Practitioner Active S tart: December 27, 2024 Dr. Clifton Wells MD Nurse Practitioner Active Start: December 27, 2024 Dr. Raul Casper DO Attending physician Active Start: December 27, 2024 Dr. Raul Casper DO Nurse Practitioner Active Start: December 27, 2024 VERA Rose Nurse Practitioner Active S tart: December 27, 2024 VERA Porras Nurse Practitioner Active Start: December 27, 2024 LEONEL Esposito Nurse Practitioner Active Start: December 27, 2024 Dr. Keshav Elizondo MD Referring Provider Active Start: December 27, 2024 Dr. Keshav Elizondo MD Nurse Practitioner Active Start: December 27, 2024 Team Status: Active Member Role/Relationship Status Dates Dr. Paulo Scott MD Primary care physician Active Start: December 28, 2024 Dr. Raul Casper DO Attending physician Active Start: December 28, 2024 Dr. Keshav Elizondo MD Referring Provider Active Start: December 28, 2024 Team Status: Active Member Role/Relationship Status Dates Dr. Paulo Scott MD Primary care physician Active Start: December 30, 2024 Dr. Shashi Veronica , Emergency Department Physician Active Start: December 30, 2024 Dr. Shelia Campos DO Admitting physician Active Start: December 30, 2024 Dr. Shelia Campos DO Nurse Practitioner Active S tart: December 30, 2024 Dr. Clifton Wells MD Nurse Practitioner Active Start: December 30, 2024 Dr. Raul Casper DO Attending physician Active Start: December 30, 2024 Dr. Raul Casper DO Nurse Practitioner Active Start: December 30, 2024 Sandie Rodriguez NP-Angelica Nurse Practitioner Active S tart: December 30, 2024 Jacquelin Odell NP-C Nurse Practitioner Active Start: December 30, 2024 LEONEL Esposito Nurse Practitioner Active Start: December 30, 2024 Dr. Keshav Elizondo MD Referring Provider Active Start: December 30, 2024 Dr. Keshav Elizondo MD Nurse Practitioner Active Start: December 30, 2024 Team Status: Active Member Role/Relationship Status Dates Dr. Paulo Scott MD Primary care physician Active Start: January 11, 2025 Seymour HALE MD Attending physician Active Start: January 11, 2025 Seymour HALE MD Referring Provider Active Start: January 11, 2025 Team Status: Active Member Role/Relationship Status Dates Dr. Paulo Scott MD Primary care physician Active Start: January 13, 2025 Nathalie HALE DESIGNER ARCHITECT-C Attending physician Active Start: January 13, 2025 Team Status: Inactive Member Role/Relationship Status Dates Dr. Stew Garza DO Emergency Departm ent Physician Active Start: January 13, 2025 End: January 14, 2025 Dr. Seymour Tripp MD Primary care physician Activ e Start: January 13, 2025 End: January 14, 2025 Team Status: Active Member Role/Relationship Status Dates Dr. Seymour Tripp MD Primary care physician Activ e Start: January 17, 2025 Seymour HALE MD Attending physician Active Start: January 17, 2025 INFORMATION SOURCE (unrecogn ized section and content) DATE CREATED AUTHOR 01/25/2025 [facility] DATE CREATED AUTHOR AUTHOR'S ORGANIZ ATION 01/26/2025 [facility] FOR RECORDS PERTAINING TO PATIENTS WHO ARE [...] BE BASED ON THE PRIMARY CLINICAL RECORDS. [employer] provides no warranty or guarantee of the accuracy or completeness of information in this document.
== END | disposition home or self-care (01) ==
LOC: LAB 15:53
PROVIDERS: PCP Internal Medicine; Referring Provider Physician Assistant Medical; Visit Provider Physician Assistant Medical
DX: Z00.00 Encounter for general adult medical examination without abnormal findings (principal)

== ENCOUNTER 2025-02-18 15:28 | Emergency (ER) | payer MEDICARE, BC, SELFPAY ==
[2025-02-18 15:29] VITALS: BP 166/77; PULSE 94; RESP 18; TEMP 35.9; O2SAT 95
[2025-02-18 16:36] VITALS: BMI 34.4
--- NOTE | 2025-02-18 17:12 | EKG12_ITS ---
Test Reason : Blood Pressure : */* mmHG Vent. Rate : 109 BPM Atrial Rate : 79 BPM P-R Int : 240 ms QRS Dur : 84 ms QT Int : 392 ms P-R-T Axes : 36 -7 4 degrees QTcB Int : 527 ms Critical Test Result: Arrhythmia Sinus rhythm with 1st degree A-V block with Premature supraventricular complexes and with frequent and consecutive Premature ventricular complexes with junctional escape complexes Low voltage QRS Nonspecific ST and T wave abnormality Prolonged QT Abnormal ECG Confirmed by DOUG VARGAS, ESSENCE ([id number]), website/blog editor JASON GOMEZ ([id number]) on 02/21/2025 6:06:13 AM Referred By: Confirmed By: ESSENCE CAMACHO MD
--- NOTE | 2025-02-18 17:15 | EX.ED.DYSGE1 ---
HPI History of Present Illness Chief Complaint: Abn Labs Informant: patient Onset/Context/Timing Onset: Yesterday Context: Gradual Onset Timing: Continuous Location: Generalized Worsened by: Nothing Relieved by: Nothing Narrative Narrative: Patient presents with hypokalemia that was noted yesterday. Patient states she had outpatient drawn by her primary care physician yesterday and noted her potassium was 2.7. Patient denies any chest pain. Patient denies any shortness of breath. Patient denies any nausea or vomiting. Patient denies any fevers or chills. Patient states she has been taking oral potassium tablets with minimal relief. Patient states that the potassium tablets are causing problems with her teeth. Patient states she has been crushing them up and putting them in applesauce. [facility] Medical History Moderate left ventricular hypertrophy Loss of hearing Wears glasses Wears partial dentures Post-menopausal Anxiety Thyroid disease Ambulates with cane Urinary incontinence Difficulty swallowing Gastric reflux Non-smoker History of echocardiogram History of stress test Seasonal allergies History of edema Cardiology follow-up encounter History of cataract Ganglion cyst Atherosclerotic heart disease of [place] coronary artery without angina pectoris Cholelithiasis with chronic cholecystitis Cholecystitis Pancreatitis, gallstone Gallstones Pancreatitis Dysmetabolic syndrome X DVT (deep venous thrombosis) Barretts esophagus Hypothyroidism Fibromyalgia History of DVT (deep vein thrombosis) Essential hypertension Segmental and somatic dysfunction of pelvic region Segmental and somatic dysfunction of lumbar region Segmental and somatic dysfunction of thoracic region DDD (degenerative disc disease), lumbar History of atrial dilatation PAD (peripheral artery disease) TIA (transient ischemic attack) Osteoarthritis GERD (gastroesophageal reflux disease) IBS (irritable bowel syndrome) Cataracts, bilateral Arthritis Anemia Environmental allergies Home Medications ?Medication ?Instructions ?Recorded ?Last Taken ?Type gabapentin 100 mg capsule 300 mg PO QHS PAIN 01/11/14 12/26/24 History aspirin 81 mg tablet,delayed 81 mg PO DAILY@0800 HEART 02/09/19 12/26/24 History release multivitamin 1 tab PO DAILY SUPPLEMENT 04/08/19 12/26/24 History levothyroxine 88 mcg tablet 88 mcg PO DAILY THYROID 07/26/22 12/27/24 History cranberry fruit concentrate 250 mg 250 mg PO DAILY URINARY HEALTH 01/31/23 12/27/24 History chewable tablet (Azo Cranberry) amlodipine 5 mg tablet 5 mg PO DAILY HTN 10/15/24 12/26/24 History lactulose 10 gram/15 mL oral 30 ml PO QHS 12/27/24 12/26/24 History solution acetaminophen 325 mg tablet 650 mg (2 x 325 mg) PO Q6H PRN PRN 01/03/25 Unknown Rx Pain 1-10 Or Fever #0 tabs ipratropium 0.5 mg-albuterol 3 mg 3 ml inhalation Q4HWA.RT PRN 01/03/25 Unknown Rx (2.5 mg base)/3 mL nebulization shortness of breath #0 mL soln pantoprazole 40 mg tablet,delayed 40 mg PO BID #0 tabs 01/03/25 Unknown Rx release spironolactone 25 mg tablet 25 mg PO 1700 HTN 30 days #30 tabs 01/03/25 12/26/24 Rx benzonatate 100 mg capsule 100 mg PO BID-TID PRN cough 02/17/25 Unknown History budesonide 0.5 mg/2 mL suspension 0.5 mg inhalation DAILY 02/17/25 Unknown History for nebulization cholecalciferol (vitamin D3) 10 10 mcg PO DAILY 02/17/25 Unknown History mcg (400 unit) capsule diazepam 5 mg tablet 5 mg PO QHS 02/17/25 Unknown History diclofenac sodium 1 % topical gel 2 g topical 4XD 02/17/25 Unknown History (Arthritis Pain (diclofenac)) furosemide 40 mg tablet 40 mg PO DAILY #1 TAB 02/17/25 Unknown Rx insulin glargine 100 unit/mL (3 17 unit subcut DAILY 02/17/25 Unknown History mL) subcutaneous pen (Lantus Solostar U-100 Insulin) insulin lispro 100 unit/mL 1 sliding scale dose subcut 02/17/25 Unknown History subcutaneous pen (Humalog KwikPen (U-100) Insulin) lidocaine HCl 4 % topical cream 1 applic topical BID 02/17/25 Unknown History (Aspercreme (lidocaine HCl)) magnesium glycinate 100 mg (as 100 mg PO DAILY 02/17/25 Unknown History glycinate) tablet (Mag Glycinate) metformin 500 mg tablet,extended 500 mg PO QDAY 02/17/25 Unknown History release 24 hr cephalexin 500 mg capsule 500 mg PO Q6 #12 CAPSULES 02/18/25 Unknown Rx ferrous sulfate 324 mg (65 mg 324 mg PO DAILY #30 tabs 02/18/25 Unknown Rx iron) tablet,delayed release potassium chloride 40 mEq/15 mL 40 meq (15 mL) PO DAILY #150 mL 02/18/25 Unknown Rx oral liquid Allergy/AdvReac Type Severity Reaction Status Date / Time latex Allergy Unknown PT UNSURE Verified 02/18/25 15:32 OF REACTION adhesive Allergy Unknown Verified 02/18/25 15:32 benzocaine (From Cetacaine) Allergy Unknown Verified 02/18/25 15:32 butamben (From Cetacaine) Allergy Vomiting Verified 02/18/25 15:32 cortisone (Cortisone) Allergy Unknown Verified 02/18/25 15:32 dipyridamole (From Aggrenox) Allergy Unknown Verified 02/18/25 15:32 lansoprazole (From Prevacid) Allergy Unknown Verified 02/18/25 15:32 meclizine Allergy Unknown Verified 02/18/25 15:32 methylprednisolone acetate Allergy Angioedema Verified 02/18/25 15:32 (From Depo-Medrol) metoprolol Allergy Unknown Verified 02/18/25 15:32 omeprazole (From Prilosec) Allergy Unknown Verified 02/18/25 15:32 omeprazole magnesium (From Allergy Unknown Verified 02/18/25 15:32 Prilosec) oxybutynin chloride (From Allergy Unknown Verified 02/18/25 15:32 Ditropan) sulfamethoxazole (From Allergy Unknown Verified 02/18/25 15:32 Bactrim) tegaserod (From Zelnorm) Allergy Hives Verified 02/18/25 15:32 tegaserod hydrogen maleate Allergy Unknown Verified 02/18/25 15:32 (From Zelnorm) tetracaine (From Cetacaine) Allergy Unknown Verified 02/18/25 15:32 tolterodine tartrate (From Allergy Unknown Verified 02/18/25 15:32 Detrol) trimethoprim (From Bactrim) Allergy Unknown Verified 02/18/25 15:32 lisinopril AdvReac Intermediate Angioedema Verified 02/18/25 15:32 adhesive tape AdvReac Rash Verified 02/18/25 15:32 codeine AdvReac Unknown Verified 02/18/25 15:32 mirabegron (From Myrbetriq) AdvReac Other Verified 02/18/25 15:32 tizanidine AdvReac Other Verified 02/18/25 15:32 vaccine adjuvant system, AdvReac Rash Verified 02/18/25 15:32 [id number] liposomal (From Shingrix (PF)) varicella-zoster virus AdvReac Rash Verified 02/18/25 15:32 glycoprotein E, recombinant (From Shingrix (PF)) Family History Mother Cancer Celiac disease Presence of permanent cardiac pacemaker Father Cancer Sister Hypertension Other Colon cancer Myocardial infarction Surgical History History of back surgery History of cholecystectomy Hx of dilation and curettage Hx of cardiac cath History of Robbie fundoplication S/P gastroplasty History of laparotomy Hx of tubal ligation hx of filter removal Hx of superior vena cava filter placement Hx of local excision of skin lesion History of esophagogastroduodenoscopy (EGD) Hx of colonoscopy H/O hernia repair History of tonsillectomy Social History housing: house Smoking Status: Never smoker alcohol intake: never substance use type: does not use caffeine: Yes Type: coffee Number of servings: 2 what type of physical activity do you participate in: walking frequency: 3-4 times per week ROS ROS ED Constitutional Constitutional ED: Denies chills or fever(s) Eyes Eyes: Denies blurry vision or change in vision ENT ENT ED: Denies rhinorrhea or sore throat Cardiovascular Cardiovascular: Denies chest pain or palpitations Respiratory/Chest Respiratory/Chest: Denies cough or dyspnea Gastrointestinal Gastrointestinal: Denies nausea or vomiting Genitourinary Genitourinary ED: Denies dysuria or hematuria Musculoskeletal Musculoskeletal: Reports back pain; Denies neck pain Integumentary Reports rash; Denies abscess Neurologic Neurologic: Denies headache(s) or weakness Allergic/Immunologic Allergic/Immunologic ED: Denies mouth swelling or urticaria EXAM Physical Exam Const Vital Signs: 02/18/25 15:29 02/18/25 16:36 02/18/25 17:29 Temperature 96.7 F L Temperature Source Temporal Pulse Rate 94 100 Respiratory Rate 18 16 Respiratory Effort Normal Respiratory Pattern Normal Blood Pressure 166/77 H 122/63 H Blood Pressure Mean 106 82 Pulse Ox 95 100 Oxygen Delivery Method Room Air Room Air 12/05/25 19:00 Temperature Temperature Source Pulse Rate 74 Respiratory Rate 17 Respiratory Effort Respiratory Pattern Blood Pressure 122/67 H Blood Pressure Mean 85 Pulse Ox 95 Oxygen Delivery Method Room Air Positive well nourished and well developed General Appearance ED: well developed and NAD HEENT Reports moist mucous membranes Neck supple and no JVD Resp normal respiratory effort Auscultation: rales bilateral base (Mild) Cardio regular rate and regular rhythm GI non-tender and non-distended Palpation: soft Extremity normal to inspection General Extremety ED: Negative for edema or tenderness General Extremity: Negative for edema Neuro oriented x3, CN's II-XII intact bilaterally and no sensory deficits noted Sensorium / Orientation: alert Motor Exam: strength 5/5 throughout Psych mental status grossly normal MDM MDM MDM Narrative Medical decision making narrative: Differential diagnosis includes hypokalemia, cardiac dysrhythmia, cardiac ischemia, electrolyte abnormality, and anxiety. EKG will be obtained to assess for cardiac dysrhythmia and cardiac ischemia. CBC will be obtained to assess for leukocytosis and anemia. Basic metabolic profile will be obtained to assess for electrolyte abnormality and renal function. Lab Data Attestation: I reviewed the patient's lab results. Lab results narrative: CBC was reviewed. Hemoglobin was 9.2 and hematocrit was 30.9. These are consistent with previous results. Platelets are slightly elevated at 487. Basic metabolic profile was reviewed. Potassium was 2.6 and chloride was 95. Glucose was slightly elevated at 229. Urinalysis was reviewed. Leukocyte esterase was 100 with positive nitrites and 3+ bacteria. There are 5-10 white blood cells. There are 0-5 epithelial cells. Labs: Laboratory Results - last 24 hr 02/18/25 02/18/25 16:47 19:45 WBC 9.2 RBC 3.86 L Hgb 9.2 L Hct 30.9 L MCV 80.1 L MCH 23.8 L MCHC 29.8 L D RDW Std Deviation 50.6 H RDW Coeff of Ronnie 17.3 H Plt Count 487 H MPV 9.5 Immature Gran % (Auto) 0.400 Neut % (Auto) 56.5 Lymph % (Auto) 28.4 [place] % (Auto) 8.8 Eos % (Auto) 5.0 Baso % (Auto) 0.9 Absolute Neuts (auto) 5.2 Absolute Lymphs (auto) 2.62 Nucleated RBC % 0 Sodium 136 Potassium 2.6 L* Chloride 95 L Carbon Dioxide 28.3 Anion Gap 12 BUN 16 Creatinine 1.01 Estim Creat Clear Calc 53.37 Est GFR (MDRD) Non-Af 58 L BUN/Creatinine Ratio 15.9 Glucose 229 H Calcium 10.0 Urine Color Yellow Urine Clarity Clear Urine pH 6.0 Ur Specific [place] 1.015 Urine Protein 15 H Urine Glucose (UA) 250 H Urine Ketones Negative Urine Occult Blood Negative Urine Nitrite Positive H Urine Bilirubin Negative Urine Urobilinogen Normal Ur Leukocyte Esterase 100 H Urine RBC 0-5 SEEN Urine WBC 5-10 SEEN Ur Squamous Epith Cells 0-5 SEEN Urine Bacteria 3+ Urine Mucus 0 SEEN EKG Initial EKG: Attestation: I personally reviewed and interpreted this EKG as follows: Interpretation: Sinus Tachycardia (109) and Non-Specific ST Changes Comments: EKG was obtained. On my independent interpretation, it shows sinus tachycardia with a rate of 109. There is a first-degree AV block with a NV interval of 240 ms. QRS interval is normal at 84 ms. QTc interval was slightly prolonged at 527 ms. There is borderline left axis deviation -7. There are nonspecific ST-T wave changes. There is baseline artifact. Prior EKG tracings: available for review Prior: Unchanged (12/28/2024) Treatment and Re-Evaluation :: Patient was given oral and IV potassium here. Patient was advised of her findings. Patient was given her dose of Lasix tonight. Patient was also given a dose of Keflex here. Patient was given a prescription for Keflex. Patient was given a prescription for liquid potassium. Patient was instructed to follow-up with her primary care physician in 5 to 7 days. Patient was instructed to return if worse in any way. Patient understood and was agreeable with the plan. All questions were answered. Discharge Plan Triage Chief Complaint: Abn Labs ED Provider: Sohail Stokes Dx/Rx/DC Orders Clinical Impression: Hypokalemia, Urinary tract infection Instructions: ED Hypokalemia, ED Cystitis Female Adult Prescriptions: New potassium chloride 40 mEq/15 mL liquid 40 meq PO DAILY Qty: 150 0RF cephalexin 500 mg capsule 500 mg PO Q6 Qty: 12 0RF Discontinued potassium chloride 20 mEq tablet,ER particles/crystals 20 meq PO QDAY No Action multivitamin Tablet 1 tab PO DAILY levothyroxine 88 mcg tablet 88 mcg PO DAILY amlodipine 5 mg tablet 5 mg PO DAILY Azo Cranberry 250 mg tablet,chewable 250 mg PO DAILY benzonatate 100 mg capsule 100 mg PO BID-TID PRN (Reason: cough) budesonide 0.5 mg/2 mL suspension for nebulization 0.5 mg inhalation DAILY diazepam 5 mg tablet 5 mg PO QHS Patient Comments: [NO ORIGINAL SIG] insulin lispro [Humalog KwikPen Insulin] 100 unit/mL insulin pen 1 sliding scale dose subcut Patient Comments: Inject 4 Units subcutaneously three times a day before meals or as directed. Per sliding scale 0-150 0 units, 151-200 2 units, 201-250 4 units, 251-300 6 units, 301-350 8 units, 351-400 10 units, 401-450 12 units, 451-500 15 units, >500 call doctor. cholecalciferol (vitamin D3) 10 mcg (400 unit) capsule 10 mcg PO DAILY diclofenac sodium [Arthritis Pain (diclofenac)] 1 % gel 2 g topical 4XD Rx Instructions: apply to single elbow, wrist or hand; for hand includes palm/fingers/back of hand metformin 500 mg tablet extended release 24 hr 500 mg PO QDAY Mag Glycinate 100 mg tablet 100 mg PO DAILY lidocaine HCl [Aspercreme (lidocaine HCl)] 4 % cream 1 applic topical BID insulin glargine [Lantus Solostar U-100 Insulin] 100 unit/mL (3 mL) insulin pen 17 unit subcut DAILY Rx Instructions: Hold if glucose less than 130 mg/dl furosemide 40 mg tablet 40 mg PO DAILY Qty: 1 0RF gabapentin 100 MG capsule 300 mg PO QHS aspirin 81 MG tablet 81 mg PO DAILY@0800 lactulose 10 gram/15 mL solution 30 ml PO QHS Patient Comments: TAKE (30 mL) by mouth at bedtime for 90 days. acetaminophen 325 mg Tablet 650 mg PO Q6H PRN PRN (Reason: Pain 1-10 Or Fever) Qty: 0 0RF ipratropium-albuterol 0.5 mg-3 mg(2.5 mg base)/3 mL Solution For Nebulization 3 ml inhalation Q4HWA.RT PRN (Reason: shortness of breath) Qty: 0 0RF pantoprazole 40 mg Tablet,Delayed Release (Dr/Ec) 40 mg PO BID Qty: 0 0RF spironolactone 25 mg tablet 25 mg PO 1700 30 Days Qty: 30 0RF ferrous sulfate 324 mg (65 mg iron) tablet,delayed release (DR/EC) 324 mg PO DAILY Qty: 30 3RF Primary Care Provider: Miryam Riojas Referrals: Miryam Riojas MD [Primary Care Provider, Internal Medicine] - 3-5 Days Print Language: Danish Disposition Disposition: Home, Self Care
[2025-02-18 17:29] VITALS: BP 122/63; PULSE 100; RESP 16; O2SAT 100
[2025-02-18 17:29] LABS: Hematocrit 30.9 % (37-47); Hemoglobin 9.2 g/dL (12.0-15.0); Immature Granulocytes Count 0.040 X10^3/uL (0.0-0.0); Mean Corp Hgb Conc 29.8 g/dL (32-36); Mean Corpuscular Volume 80.1 fL (81-99); Mean Platelet Vol. 9.5 fl (6.2-12.0); NRBC Flagged by Analyzer 0 % (0-5); Platelet Count 487 K/mm3 (150-450); RBC Distribution Width CV 17.3 % (11.6-14.6); RBC Distribution Width SD 50.6 fl (35.1-43.9); Red Blood Count 3.86 M/mm3 (4.2-5.4); White Blood Count 9.2 K/mm3 (4.4-11.0)
--- OUTSIDE RECORDS SUMMARY | 2025-02-18 17:31 | XMS RPT_ITS | CCD ---
Author Organization [facility] Care Team Providers Care Food Vendor Name Role Phone No finance business manager, Md Unavailable Unavailab le No finance business manager, Md Primary Care Provider Sunni vailable Zeenat Sweeney CGC Unavailable Unavailable Quoc Diaz MD Unavailable Paulo Scott MD Primary Care Provider Dr. Paulo Scott Primary Care Provider Dr. Paulo Scott Referring Provider Debbie BINDERY MACHINE OPERATOR, BINDERY MACHINE OPERATOR-C Suzie Attending Provider Paulo Scott [...] Dr. Shelia Campos Other Provider Dr. Paulo Sctot Primary Care Provider Dr. Paulo Scott Referring Provider Tyra CASTANEDA, LEONEL Joiner Attending Provider Pennie, Dr. Carter Attending Provider [phone] Debbie BINDERY MACHINE OPERATOR, VERA Larsen Attending Provider Dr. [...] Paulo Scott MD Primary Care Provider Rodriguez TOBACCO GRADER.OVERLOCK HEMMER, Juan Unavailable Sumeet TOBACCO GRADER.CEMENT PAVER, Norman Unavailable Sumeet TOBACCO GRADER.CEMENT PAVER, Norman Unavailable Dr. Paulo Scott MD Primary Care Provider Dr. Paulo Scott MD Referring Provider Dr. Raul Casper DO Attending Provider Dr. Callum Trimble DO Attending Provider Dr. Julian Paul MD Attending Provider Dr. Raul Casper DO Referring Provider Jackson VARGAS, Dr. Rojas Attending Provider Jackson VARGAS, Dr. Rojas Referring Provider [phone] Shine VARGAS, Dr. Paulo Tony Primary Care Provider [phone] Shine VARGAS, Dr. Paulo Tony Referring Provider Atilio RANDLE, Dr. Nolen Attending Provider Beverly VARGAS, Dr. Jordan Attending Provider [phone] Pennie RANDLE, Dr. Carter Attending Provider Vanessa VARGAS, Dr. Sotelo Referring Provider Vanessa VARGAS, Dr. Sotelo Emergency Provider Sumeet TOBACCO GRADER.CEMENT PAVER, Norman Unavailable Rodriguez TOBACCO GRADER.OVERLOCK HEMMER, Juan Unavailable Shine VARGAS, Dr. Paulo Tony Primary Care Provider Vanessa VARGAS, Dr. Sotelo Attending Provider Gina Ahumada Attending Provider Shine VARGAS, Dr. Paulo Tony Primary Care Physician Vanessa VARGAS, Dr. Sotelo Attending Physician Vanessa VARGAS, Dr. Sotelo Emergency Department Phys ician Shine [...] Pennie RANDLE, Dr. Carter Nurse Practitioner Michael BINDERY MACHINE OPERATOR-C, Sandie Nurse Practitioner [phone] Jose R BINDERY MACHINE OPERATOR-C, Jacquelin Nurse Practitioner Adelina Rm Nurse Practitioner [...] Unavailable Adelina Rm Attending Physician [phone] [facility] Danielle Emergency Departmen t Physician Andres RANDLE, Dr. Bass Admitting Physician Andres RANDLE, Dr. Bass Nurse Practitioner Russell VARGAS, Dr. Lazo Attending Physician Russell VARGAS, Dr. Lazo Nurse Practitioner Pennie RANDLE, Dr. Carter Nurse Practitioner Michael HUDDLESTON-C, Sandie Nurse Practitioner Jose R BINDERY MACHINE OPERATOR-CJacquelin Nurse Practitioner Adelina Rm Nurse Practitioner [phone] Mikhail VARGAS, Dr. Parr Nurse Practitioner Unavaila brie Casper DO, Dr. Carter Attending Physician [phone] Mikhail VARGAS, Dr. Parr Referring Provider Unavaila brie Paul MD, Dr. Jordan Attending Physician [phone] Beverly VARGAS, Dr. Jordan Referring Provider [phone] Mikhail VARGAS, Dr. Parr Attending Physician Unavail edwar Tripp MD, Seymour Attending Physician Unavail edwar Tripp MD, Seymour Referring Provider Unavaila brie Johns BINDERY MACHINE OPERATOR-CNathalie Attending Physician Dr. Stew Garza DO Emergency [...] Elizondo Attending Unavailable Friend, Raul Consulting Unavailable Sanide Rodriguez Consulting Unavailable Jacquelin Odell Consulting Unavailable [...] Drug Allergy 05-27-19 12 Other: See Comments [facility] (20 sources) Benzocaine / butamben / Tetracaine; Translations: [BUTAMBEN-TETRACAINE- BENZOCAINE] Drug Allergy 09-12-19 13 Other: See Comments [facility] Work Phone: (20 sources) Codeine; Translations: [CODEINE] Drug Allergy 03-07-[address] [facility] (20 sources) Cortisone; Translations: [CORTISONE] Drug Allergy 09-19-[address] [facility] Work Phone: (20 sources) lansoprazole; Translations: [LANSOPRAZOLE] Drug Allergy 03-07-[address] [facility] (20 sources) Latex; Translations: [LATEX] Propensity to adverse reactions 11-04-[address] [facility] Work Phone: (20 sources) Meclizine; Translations: [MECLIZINE] Drug Allergy 03-07-[address] [facility] (20 sources) methylPREDNISolone Drug Allergy 03-07-[address] [facility] (20 sources) Metoprolol; Translations: [METOPROLOL] Drug Allergy 04-24-[address] [facility] Work Phone: (20 sources) mirabegron; Translations: [MIRABEGRON] Drug Allergy 12-27-19 15 Other: See Comments [facility] Work Phone: (20 sources) Omeprazole; Translations: [OMEPRAZOLE MAGNESIUM] Drug Allergy 09-19-[address] [facility] Work Phone: (20 sources) oxybutynin; Translations: [OXYBUTYNIN CHLORIDE] Drug Allergy 03-07-[address] [facility] (20 sources) Povidone-Iodine; Translations: [POVIDONE-IODINE] Drug Allergy 11-05-[address] [facility] Work Phone: (20 sources) Sulfamethoxazole / Trimethoprim; Translations: [SULFAMETHOXAZOLE-TRI METHOPRIM] Drug Allergy 03-20-19 [facility] Work Phone: (20 sources) tegaserod; Translations: [TEGASEROD HYDROGEN MALEATE] Drug Allergy 03-07-[address] [facility] (20 sources) tiZANidine; Translations: [TIZANIDINE] Drug Allergy 03-24-19 15 Other: See Comments [facility] (20 sources) tolterodine; Translations: [TOLTERODINE TARTRATE] Drug Allergy 03-07-[address] [facility] (20 sources) cigarettes [Other] Propensity to adverse reactions 02-23-[address] [facility] (20 sources) ekg patches [Other] Propensity to adverse reactions 02-21-20 06 [facility] (20 sources) paper tape [Other] Propensity to adverse reactions 08-16-19 07 [facility] Work Phone: (20 sources) Adhesive agent; Translations: [ADHESIVE] Allergy to substance 09-19-19 Rash [facility] (6 sources) Aspirin Drug Allergy 09-19-19 Unknown [facility] (15 sources) Benzocaine Drug Allergy 09-19-19 Unknown [facility] (15 sources) butamben Drug Allergy 09-19-19 22 Unknown, Vomiting [facility] (15 sources) Dipyridamole Drug Allergy 09-19-19 Unknown [facility] (16 sources) methylPREDNISolone; Translations: [methylprednisolone acetate] Drug Allergy 09-19-19 22 Unknown, Angioedema [facility] (1 source) methylPREDNISolone Drug Allergy 09-19-19 22 Angioedema [facility] Work Phone: (15 sources) Omeprazole Drug Allergy 09-19-19 22 Unknown [facility] (15 sources) Sulfamethoxazole Drug Allergy 09-19-19 22 Unknown [facility] (15 sources) Tetracaine Drug Allergy 09-19-19 22 Unknown [facility] (15 sources) Trimethoprim Drug Allergy 09-19-19 22 Unknown [facility] (15 sources) Varicella zoster virus glycoprotein E Drug Allergy 09-19-19 22 [facility] (6 sources) soap Allergy to substance 09-19-19 [facility] (16 sources) vaccine adjuvant system, AS01B liposomal; Translations: [vaccine adjuvant system, AS01B liposomal] Propensity to adverse reactions 09-19-19 [facility] (1 source) PAPER TAPE Propensity to adverse reactions 09-19-19 [facility] Work Phone: (15 sources) Adhesive Tape; Translations: [adhesive tape] Propensity to adverse reactions 04-24-19 [facility] Comment on above: PAPER TAPE (20 sources) Lisinopril; Translations: [LISINOPRIL] Drug Allergy 04-26-[address] [facility] Work Phone: Comment on above: question if try katie rgy (20 sources) Adhesive Tape; Translations: [ADHESIVE TAPE (ROSINS)] Allergy to substance 02-13-[address] [facility] Work Phone: (20 sources) methylPREDNISolone; Translations: [METHYLPREDNISOLONE] Drug Allergy 02-13-20 Other: See Comments [facility] Work Phone: (20 sources) Cigarette Smoke; Translations: [CIGARETTE SMOKE] Drug Intolerance 02-13-[address] [facility] Work Phone: (1 source) Benzocaine Drug Allergy 01-22-20 [facility] (1 source) butamben Drug Allergy 01-22-20 [facility] (1 source) Codeine Drug Allergy 01-22-20 25 [facility] (1 source) Cortisone Drug Allergy 01-22-20 25 [facility] (1 source) Dipyridamole Drug Allergy 01-22-20 25 [facility] (1 source) lansoprazole Drug Allergy 01-22-20 [facility] (1 source) Latex Drug allergy (disorder) 01-22-20 [facility] (1 source) Lisinopril Drug Allergy 01-22-20 [facility] (1 source) Meclizine Drug Allergy 01-22-20 [facility] (1 source) Metoprolol Drug Allergy 01-22-20 [facility] (1 source) mirabegron Drug Allergy 01-22-20 [facility] (1 source) Omeprazole Drug Allergy 01-22-20 [facility] (1 source) Omeprazole Drug Allergy 01-22-20 [facility] (1 source) oxybutynin Drug Allergy 01-22-20 [facility] (1 source) Povidone-Iodine Drug Allergy 01-22-20 [facility] (1 source) Sulfamethoxazole Drug Allergy 01-22-20 [facility] (1 source) tegaserod Drug Allergy 01-22-20 [facility] (1 source) Tetracaine Drug Allergy 01-22-20 [facility] (1 source) tiZANidine Drug Allergy 01-22-20 [facility] (1 source) tolterodine Drug Allergy 01-22-20 [facility] (1 source) Trimethoprim Drug Allergy 01-22-20 [facility] (1 source) tegaserod hydrogen maleate Drug allergy (disorder) 01-22-20 [facility] (1 source) varicella-zoster virus glycoprotein E, recombinant Drug allergy (disorder) 01-22-20 [facility] Medications Current Medications Medication Drug [...] 2019 12:17pm take 2 tablets by mo [facility] every six hours as needed acetaminophen [...] 12:18pm supplement take 1 capsule by mo [facility] once daily cholecalciferol, vitamin D3, 10 mcg (400 unit) cap Take 400 Units by mouth once daily. Active Comment on above: Take 400 Units by mo [facility] once daily. COMPOUNDED PRESCRIPTION (20 sources) Start: [...] 04/26/2022 Discontinued Start: 10-13-2013 COMPOUNDED PRE SCRIPTION [place] Antiseptic Powder (carbolic acid; zinc oxide) as needed per Dr. Arleen Burdick 0 10/13/2013 Active Comment on above: [place] Antiseptic Powder (carbolic acid; zinc oxide) as [...] Active docusate sodium 50 mg / sennosides, halfway 8.6 mg oral tablet (2 sources) Start: [...] Comment on above: Take 1 capsule by [facility] twice daily for 7 days. nystatin [id number] unt/ml oral suspension (3 sources) Polyene Antifungal [...] Comment on above: Take 1 capsule by [facility] once daily. Needs Namebrand over the counter, [...] 02-24-2017 End: 04-26-2022 white petrolatum 94% - marine insurance claim examiner al oil 3% 94-3 % oint Dr. Guera Menard [facility] 02/24/2017 04/26/2022 Discontinued Comment on above: Dr. Guera Menard e [facility] (14 sources) Start: 10-12-2019 End: 04-26-2022 [facility] as directed. 10/12/2019 04/26/2022 Discontinued Start: 10-12-2019 End: 04-26-2022 [facility] as d irected. 0 10/12/2019 04/26/2022 Discontinued Start: 10-12-2019 [facility] as directed. 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 Please phone Reshma with verbal: [phone] has secure voicemail. Juan Rodriguez APRN.OVERLOCK HEMMER 01/24/2025 1:18 PM Signed Okay for home [...] mandibular pain, lymphadenopathy, possible angio edema per [facility] ER note 04/24/2022 MECLIZINE 03/07/2006 7 [...] - Fully Assessed Reason for Visit: [employer] [facility]: agree to follow [Other] Prescriptions as of [...] by all (more content not included)... Normal [facility] Gastroenterology Visit Repor ton 01-21-2025 Gastroenterology Visit Report Normal [facility] Absolute lymphocyte countOrd ered By: Seymour Tripp on 01-17-2025 Lymphocytes Auto (Unsp spec) [#/Vol] 2.52 10*3/uL 0.83-4.51 [facility] Anion gap in Serum or Plasma Ordered By: Seymour Tripp on 01-17-2025 Anion gap [Moles/Vol] 16 mmol/L High 5-15 [facility] Automated lymphocyte count a s percentage of total leukocytesOrdered By: Seymour Tripp on 01-17-2025 Lymphocytes/100 WBC Auto (Unsp spec) 32.1 % 19-41 [facility] BUN/creatinine ratioOrdered By: Seymour Tripp on 01-17-2025 Urea nitrogen/Creatinine [Mass ratio] 17.4 mg/mg 10-20 [facility] Basophil percentageOrdered B y: Seymour Tripp on 01-17-2025 Basophils/100 WBC (Bld) 1.1 % High 0-1 [facility] Carbon dioxide, total [Moles /volume] in Central venous bloodOrdered By: Seymour Tripp on 01-17-2025 CO2 [Moles/Vol] 23.3 mmol/L 21.0-32.0 [facility] Chloride assayOrdered By: Flavia Tripp on 01-17-2025 Chloride [Moles/Vol] 101 mmol/L 98-108 [facility] Eosinophil percentageOrdered By: Seymour Tripp on 01-17-2025 Eosinophils/100 WBC (Bld) 7.8 % High 0-5 [facility] Erythrocyte distribution wid th ratioOrdered By: [facility] Cherokeecamila Tripp on 01-17-2025 Erythrocyte distribution width (RBC) [Ratio] 15.0 % High 11.6-14.6 [facility] Erythrocyte distribution wid th standard deviationOrdered By: sarayboca grandecamila Tripp on 01-17-2025 Erythrocyte distribution width (RBC) [Ratio] 50.2 fl High 35.1-43.9 [facility] Glomerular filtration rate ( GFR) estimation/1.73 sq m using serum, plasma, or whole bOrdered By: Fareedboca grandecamila Tripp on 01-17-2025 GFR/1.73 sq M.predicted among non-blacks MDRD (S/P/Bld) [Vol rate/Area] 81 mL/min/{1.73_m2} >60 [facility] Hematocrit Auto (Bld) [Volum e fraction]Ordered By: Seymour Tripp on 01-17-2025 Hematocrit (Bld) [Volume fraction] 27.9 % Low 37-47 [facility] Hemoglobin measurementOrdere d By: Seymour Tripp on 01-17-2025 Hemoglobin (Bld) [Mass/Vol] 8.5 g/dL Low 12.0-15. 0 [facility] Immature granulocytes/100 WB C Auto (Bld)Ordered By: Seymour Tripp on 01-17-2025 Immature granulocytes/100 WBC (Bld) 0.100 % 0.0-0.9 [facility] MCV (mean corpuscular volume ) determinationOrdered By: Seymour Tripp on 01-17-2025 MCV (RBC) [Entitic vol] 91.5 fL 81-99 [facility] Mean corpuscular hemoglobin (MCH) determinationOrdered By: sarayboca grandecamila Tripp 01-17-2025 MCH (RBC) [Entitic mass] 27.9 pg 27.0-32.0 [facility] Monocyte percentageOrdered B y: Seymour Tripp on 01-17-2025 Monocytes/100 WBC (Bld) 7.9 % 0-10 [facility] Neutrophil percentageOrdered By: Seymour Cheocallie on 01-17-2025 Neutrophils/100 WBC (Bld) 51.0 % 47-70 [facility] Platelet countOrdered By: Flavia andres Cheocallie on 01-17-2025 Platelets (Bld) [#/Vol] 474 10*3/uL High 150-450 [facility] Potassium measurement (mass/ volume)Ordered By: Flaviasaraysammycamila Griderkaseymerline on 01-17-2025 Potassium (Unsp spec) [Mass/Vol] 3.3 mmol/L 3.3-5.1 [facility] RBC Auto (Bld) [#/Vol]Ordere d By: Seymour Cheocallie on 01-17-2025 RBC (Bld) [#/Vol] 3.05 10*6/uL Low 4.2-5.4 [facility] Serum creatinine measurement (mass/volume)Ordered By: Flaviasaraysammycamila Griderkaseymerline on 01-17-2025 Creatinine [Mass/Vol] 0.77 mg/dL 0.70-1.20 [facility] Serum glucose measurement (m ass/volume)Ordered By: Flaviasaraysammycamila Griderkaseymerline on 01-17-2025 Glucose [Mass/Vol] 153 mg/dL High 70-99 [facility] Serum or plasma calcium jojo urement (mass/volume)Ordered By: Flaviasaraysammycamila Griderkaseymerline on 01-17-2025 Calcium [Mass/Vol] 8.7 mg/dL 7.6-11.0 [facility] Serum or plasma urea nitroge n measurement (mass/volume)Ordered By: Flaviaandres Griderkaseymerline on 01-17-2025 Urea nitrogen [Mass/Vol] 13 mg/dL 4-19 [facility] Sodium levelOrdered By: Fareed woodard Cheokaseymerline on 01-17-2025 Sodium [Moles/Vol] 140 mmol/L 133-145 [facility] White blood cell (WBC) count Ordered By: Flaviasarayyamilet Cheokaseymerline on 01-17-2025 WBC (Bld) [#/Vol] 7.9 10*3/uL 4.4-11.0 [facility] Absolute lymphocyte countOrd ered By: Stew Garza on 01-14-2025 Lymphocytes Auto (Unsp spec) [#/Vol] 2.56 10*3/uL 0.83-4.51 [facility] Anion gap in Serum or Plasma Ordered By: Stew Garza on 01-14-2025 Anion gap [Moles/Vol] 13 mmol/L 5-15 [facility] Automated blood erythrocyte countOrdered By: Stew Garza on 01-14-2025 RBC (Bld) [#/Vol] 3.28 10*6/uL Low 4.2-5.4 [facility] Comment on above: Performed By: #### L 100.0100, L500.3400, L500.2500 ####[facility] [address] [place], [place], [id number] Automated blood hematocrit ( percentage)Ordered By: Stew Garza on 01-14-2025 Hematocrit (Bld) [Volume fraction] 28.7 % Low 37-47 [facility] Comment on above: Performed By: #### L 100.0100, L500.3400, L500.2500 ####[facility] [address] [place], [address] Automated lymphocyte count a s percentage of total leukocytesOrdered By: Stew Garza on 01-14-2025 Lymphocytes/100 WBC Auto (Unsp spec) 27.3 % [facility] BUN/creatinine ratioOrdered By: Stew Garza on 01-14-2025 Urea nitrogen/Creatinine [Mass ratio] 14.6 mg/mg 01-03 [facility] Basic Metabolic Profile (BMP )on 01-14-2025 BUN/CRE 14.6 RATIO Normal 01-03 [facility] Comment on above: Performed By: #### L 100.0100, L500.3400, L500.2500 ####[facility] [address] [place], [address] ECRCL 54.04 ml/min Normal 50-250 [facility] Comment on above: Performed By: #### L 100.0100, L500.3400, L500.2500 ####[facility] [address] [place], [address] GAP 13 Normal 5-15 [facility] Comment on above: Performed By: #### L 100.0100, L500.3400, L500.2500 ####[facility] [address] [place], [address] Potassium [Moles/Vol] 3.5 mmol/L Normal 3.3-5.1 [facility] Comment on above: Result Comment: Hemo lysis present, Results??could be affected.?? Performed By: #### L 100.0100, L500.3400, L500.2500 ####[facility] [address] [place], [address] Basophil percentageOrdered B y: Stew Garza on 01-14-2025 Basophils/100 WBC (Bld) 0.9 % Normal 0-1 [facility] Comment on above: Performed By: #### L 100.0100, L500.3400, L500.2500 ####[facility] [address] [place], [address] Bilirubin Test strip Ql (U)O rdered By: Stew Garza on 01-14-2025 Bilirubin Ql (U) Negative Negative [facility] Bilirubin directOrdered By: Stew Garza on 01-14-2025 Bilirubin.direct [Mass/Vol] 0.09 mg/dL Normal 0.00-0.3 0 [facility] Comment on above: Result Comment: Hemo lysis present, Results??could be affected.?? Performed By: #### L 100.0100, L500.3400, L500.2500 ####[facility] [address] [place], [address] Bilirubin, totalOrdered By: Stew Garza on 01-14-2025 Bilirubin [Mass/Vol] 0.26 mg/dL Normal 0.00-1.30 [facility] Comment on above: Performed By: #### L 100.0100, L500.3400, L500.2500 ####[facility] [address] [place], [address] CBC W/Diff, Automatedon 12-17 Absolute Lymph 2.56 X10 3/uL Normal 0.83-4.51 [facility] Comment on above: Performed By: #### L 100.0100, L500.3400, L500.2500 ####[facility] [address] [place], [address] Absolute Neut 5.3 X10 3/uL Normal 2.0-7.7 [facility] Comment on above: Performed By: #### L 100.0100, L500.3400, L500.2500 ####[facility] [address] [place], [address] IG% 0.200 Normal 0.0-0.9 [facility] Comment on above: Result Comment: IG% - Immature Granulocytes (promyelocytes, myelocytes andmetamyelocytes) > 1% indicates that a LEFT SHIFT is Present. Performed By: #### L 100.0100, L500.3400, L500.2500 ####[facility] [address] [place], [address] Lymphocytes/100 WBC (Bld) 27.3 % Normal 19-41 [facility] Comment on above: Performed By: #### L 100.0100, L500.3400, L500.2500 ####[facility] [address] [place], [address] MCHC (RBC) [Mass/Vol] 32.4 g/dL Normal 32-36 [facility] Comment on above: Performed By: #### L 100.0100, L500.3400, L500.2500 ####[facility] [address] [place], [address] Nucleated RBC (Bld) [#/Vol] 0 10*3/uL Normal 0-5 [facility] Comment on above: Performed By: #### L 100.0100, L500.3400, L500.2500 ####[facility] [address] [place], [address] Platelet mean volume (Bld) [Entitic vol] 9.1 fL Normal 6.2-12.0 [facility] Comment on above: Performed By: #### L 100.0100, L500.3400, L500.2500 ####[facility] [address] [place], [address] RDW SD 47.4 fl High 35.1-43.9 [facility] Comment on above: Performed By: #### L 100.0100, L500.3400, L500.2500 ####[facility] [address] [place], [address] Carbon dioxide, total [Moles /volume] in Central venous bloodOrdered By: Stew Garza on 01-14-2025 CO2 [Moles/Vol] 25.5 mmol/L Normal 21.0-32.0 [facility] Comment on above: Performed By: #### L 100.0100, L500.3400, L500.2500 ####[facility] [address] [place], [address] Chloride assayOrdered By: Haseeb Garza on 01-14-2025 Chloride [Moles/Vol] 99 mmol/L Normal 98-108 [facility] Comment on above: Performed By: #### L 100.0100, L500.3400, L500.2500 ####[facility] [address] [place], [address] Emergency Department Summary on 01-14-2025 Emergency Department Summary Normal [facility] Eosinophil percentageOrdered By: Stew Garza on 01-14-2025 Eosinophils/100 WBC (Bld) 4.8 % Normal 0-5 [facility] Comment on above: Performed By: #### L 100.0100, L500.3400, L500.2500 ####[facility] [address] [place], [place], [id number] Erythrocyte distribution wid th ratioOrdered By: Stew Garza on 01-14-2025 Erythrocyte distribution width (RBC) [Ratio] 14.8 % High 11.6-14.6 [facility] Comment on above: Performed By: #### L 100.0100, L500.3400, L500.2500 ####[facility] [address] [place], [place], [id number] Erythrocyte distribution wid th standard deviationOrdered By: Stew Garza on 01-14-2025 Erythrocyte distribution width (RBC) [Ratio] 47.4 fl High 35.1-43.9 [facility] Glomerular filtration rate ( GFR) estimation/1.73 sq m using serum, plasma, or whole bOrdered By: Stew Garza on 01-14-2025 GFR/1.73 sq M.predicted among non-blacks MDRD (S/P/Bld) [Vol rate/Area] 60 mL/min/{1.73_m2} Normal >60 [facility] Comment on above: Result Comment: mL/m in/1.73m2 CKD-EPI Creatinine Equation (2020) Performed By: #### L 100.0100, L500.3400, L500.2500 ####[facility] [address] [place], [place], [id number] Hemoglobin measurementOrdere d By: Stew Garza on 01-14-2025 Hemoglobin (Bld) [Mass/Vol] 9.3 g/dL Low 12.0-15. 0 [facility] Comment on above: Performed By: #### L 100.0100, L500.3400, L500.2500 ####[facility] [address] [place], [address] Hyaline casts LM.LPF (Urine sed) [#/Area]Ordered By: Stew Garza on 01-14-2025 Hyaline casts (Urine sed) [#/Area] 5 /[LPF] 0-5 [facility] Immature granulocytes/100 WB C Auto (Bld)Ordered By: Stew Garza on 01-14-2025 Immature granulocytes/100 WBC (Bld) 0.200 % 0.0-0.9 [facility] Ketones Test strip Ql (U)Ord ered By: Stew Garza on 01-14-2025 Ketones Ql (U) Negative Negative [facility] Liver Profileon 01-14-2025 ALK PHOS 73 U/L Normal 35-104 [facility] Comment on above: Performed By: #### L 100.0100, L500.3400, L500.2500 ####[facility] [address] [place], [address] AST [Catalytic activity/Vol] 27 U/L Normal <=31 [facility] Comment on above: Result Comment: Hemo lysis present, Results??could be affected.?? Performed By: #### L 100.0100, L500.3400, L500.2500 ####[facility] [address] [place], [address] T PROT 7.2 g/dL Normal 5.9-8.4 [facility] Comment on above: Performed By: #### L 100.0100, L500.3400, L500.2500 ####[facility] [address] [place], [address] MCV (mean corpuscular volume ) determinationOrdered By: Stew Garza on 01-14-2025 MCV (RBC) [Entitic vol] 87.5 fL Normal 81-99 [facility] Comment on above: Performed By: #### L 100.0100, L500.3400, L500.2500 ####[facility] [address] [place], [address] Mean corpuscular hemoglobin (MCH) determinationOrdered By: Stew Garza on 01-14-2025 MCH (RBC) [Entitic mass] 28.4 pg Normal 27.0-32.0 [facility] Comment on above: Performed By: #### L 100.0100, L500.3400, L500.2500 ####[facility] [address] [place], [address] Monocyte percentageOrdered B y: Stew Garza on 01-14-2025 Monocytes/100 WBC (Bld) 9.8 % Normal 0-10 [facility] Comment on above: Performed By: #### L 100.0100, L500.3400, L500.2500 ####[facility] [address] [place], [address] Mucus LM Ql (Urine sed)Order ed By: Stew Garza on 01-14-2025 Mucus Ql (Urine sed) 0 SEEN /hpf [facility] Neutrophil percentageOrdered By: Stew Garza on 01-14-2025 Neutrophils/100 WBC (Bld) 57.0 % Normal 47-70 [facility] Comment on above: Performed By: #### L 100.0100, L500.3400, L500.2500 ####[facility] [address] [place], [address] Nitrite Test strip Ql (U)Ord ered By: Stew Garza on 01-14-2025 Nitrite Ql (U) Negative Negative [facility] No Panel InformationOrdered By: Stew Garza on 01-14-2025 27 U/L <32 [facility] Platelet countOrdered By: Haseeb Garza on 01-14-2025 Platelets (Bld) [#/Vol] 510 10*3/uL High 150-450 [facility] Comment on above: Performed By: #### L 100.0100, L500.3400, L500.2500 ####[facility] [address] [place], [address] Potassium measurement (mass/ volume)Ordered By: Stew Garza on 01-14-2025 Potassium (Unsp spec) [Mass/Vol] 3.5 mmol/L 3.3-5.1 [facility] Protein Test strip Ql (U)Ord ered By: Stew Garza on 01-14-2025 Protein Ql (U) 15 mg/dl High Negative [facility] Serum creatinine measurement (mass/volume)Ordered By: Stew Garza on 01-14-2025 Creatinine [Mass/Vol] 0.99 mg/dL Normal 0.70-1.20 [facility] Comment on above: Performed By: #### L 100.0100, L500.3400, L500.2500 ####[facility] [address] [place], [address] Serum globulin measurementOr dered By: Stew Garza on 01-14-2025 Globulin (S) [Mass/Vol] 3.4 g/dL Normal 2.2-4.2 [facility] Comment on above: Performed By: #### L 100.0100, L500.3400, L500.2500 ####[facility] [address] [place], [address] Serum glucose measurement (m ass/volume)Ordered By: Stew Garza on 01-14-2025 Glucose [Mass/Vol] 310 mg/dL High 70-99 [facility] Comment on above: Performed By: #### L 100.0100, L500.3400, L500.2500 ####[facility] [address] [place], [address] Serum or plasma alanine martinez otransferase (ALT) measurementOrdered By: Stew Garza on 01-14-2025 ALT [Catalytic activity/Vol] 22 U/L Normal <=34 [facility] Comment on above: Performed By: #### L 100.0100, L500.3400, L500.2500 ####[facility] [address] [place], [address] Serum or plasma albumin jojo urement (mass/volume)Ordered By: Stew Garza on 01-14-2025 Albumin [Mass/Vol] 3.8 g/dL Normal 3.4-4.8 [facility] Comment on above: Performed By: #### L 100.0100, L500.3400, L500.2500 ####[facility] [address] [place], [address] Serum or plasma alkaline kamila sphatase measurementOrdered By: Stew Garza on 01-14-2025 ALP [Catalytic activity/Vol] 73 U/L 35-104 [facility] Serum or plasma calcium jojo urement (mass/volume)Ordered By: Stew Garza on 01-14-2025 Calcium [Mass/Vol] 9.2 mg/dL Normal 7.6-11.0 [facility] Comment on above: Performed By: #### L 100.0100, L500.3400, L500.2500 ####[facility] [address] [place], [address] Serum or plasma urea nitroge n measurement (mass/volume)Ordered By: Stew Garza on 01-14-2025 Urea nitrogen [Mass/Vol] 14 mg/dL Normal 4-19 [facility] Comment on above: Performed By: #### L 100.0100, L500.3400, L500.2500 ####[facility] [address] [place], [address] Sodium levelOrdered By: Sunil Garza on 01-14-2025 Sodium [Moles/Vol] 138 mmol/L Normal 133-145 [facility] Comment on above: Performed By: #### L 100.0100, L500.3400, L500.2500 ####[facility] [address] [place], [address] Squamous epithelial cells de tection in urine sediment by light microscopyOrdered By: Stew Garza on 01-14-2025 Epithelial cells.squamous LM Ql (Urine sed) 0 SEEN /hpf 5-10 [facility] Total proteinOrdered By: Marquis Garza on 01-14-2025 Protein [Mass/Vol] 7.2 g/dL 5.9-8.4 [facility] Urinalysis, Completeon 01-14 BACTERIA RARE Normal None Seen [facility] Comment on above: Order Comment: CLEAN CATCH Performed By: #### L 400.0001 ####[facility] [address] [place], [address] CAST,HYALINE 5-10 SEEN Normal 0-5 [facility] Comment on above: Order Comment: CLEAN CATCH Performed By: #### L 400.0001 ####[facility] [address] [place], [address] EPI,RENAL 0-5 SEEN Normal 0-5 [facility] Comment on above: Order Comment: CLEAN CATCH Performed By: #### L 400.0001 ####[facility] [address] [place], [address] RBC 0-5 SEEN Normal 0-5 [facility] Comment on above: Order Comment: CLEAN CATCH Performed By: #### L 400.0001 ####[facility] [address] [place], [address] WBC 0-5 SEEN Normal 0-5 [facility] Comment on above: Order Comment: CLEAN CATCH Performed By: #### L 400.0001 ####[facility] [address] [place], [address] EPI,SQUAMOUS 0 SEEN Normal 5-10 [facility] Comment on above: Order Comment: CLEAN CATCH Performed By: #### L 400.0001 ####[facility] [address] [place], [address] Mucus Ql (Urine sed) 0 SEEN Normal [facility] Comment on above: Order Comment: CLEAN CATCH Performed By: #### L 400.0001 ####[facility] [address] [place], [address] Urine clarityOrdered By: Marquis Garza on 01-14-2025 Clarity (U) Clear Clear [facility] Urine color determinationOrd ered By: Stew Garza on 01-14-2025 Color (U) Yellow Yellow [facility] Urine glucose detectionOrder ed By: Stew Garza on 01-14-2025 Glucose Ql (U) 1000 mg/dl High Normal [facility] Urine leukocyte esterase det ection by dipstickOrdered By: Stew Garza on 01-14-2025 Leukocyte esterase Test strip Ql (U) Negative Negative [facility] Urine pHOrdered By: Stew mittal on 01-14-2025 pH (U) 6.0 [pH] 5.0 - 8.0 [facility] Urine sediment bacteria coun t by microscopy (number/high power field)Ordered By: Stew Garza on 01-14-2025 Bacteria LM.HPF (Urine sed) [#/Area] RARE /hpf None Seen [facility] Urine sediment renal epithel ial cell count by microscopy (number/high power field)Ordered By: Stew Garza on 01-14-2025 Epithelial cells.renal LM.HPF (Urine sed) [#/Area] 0 /[HPF] 0-5 [facility] Urine specific gravity measu rementOrdered By: Stew Garza on 01-14-2025 Specific gravity (U) [Rel density] 1.020 1.002-1.030 [facility] Urine urobilinogen measureme ntOrdered By: Stew Garza on 01-14-2025 Urobilinogen Ql (U) Normal mg/dl Normal [facility] White blood cell (WBC) count Ordered By: Stew Garza on 01-14-2025 WBC (Bld) [#/Vol] 9.4 10*3/uL Normal 4.4-11.0 [facility] Comment on above: Performed By: #### L 100.0100, L500.3400, L500.2500 ####[facility] [address] [place], [address] White blood cell countOrdere d By: Stew Garza on 01-14-2025 White blood cell count 0-5 SEEN /hpf 0-5 [facility] Potassium measurement (mass/ volume)Ordered By: Nathalie Johns on 01-13-2025 Potassium (Unsp spec) [Mass/Vol] 2.9 mmol/L Low 3.3-5.1 [facility] Absolute lymphocyte countOrd ered By: Seymour Tripp on 01-11-2025 Lymphocytes Auto (Unsp spec) [#/Vol] 2.79 10*3/uL 0.83-4.51 [facility] Anion gap in Serum or Plasma Ordered By: Seymour Tripp on 01-11-2025 Anion gap [Moles/Vol] 10 mmol/L 5-15 [facility] Automated lymphocyte count a s percentage of total leukocytesOrdered By: Seymour Tripp on 01-11-2025 Lymphocytes/100 WBC Auto (Unsp spec) 30.4 % 19-41 [facility] BUN/creatinine ratioOrdered By: Seymour Tripp on 01-11-2025 Urea nitrogen/Creatinine [Mass ratio] 15.8 mg/mg 10-20 [facility] Basophil percentageOrdered B y: Seymour Tripp on 01-11-2025 Basophils/100 WBC (Bld) 0.5 % 0-1 [facility] Carbon dioxide, total [Moles /volume] in Central venous bloodOrdered By: Seymour Tripp on 01-11-2025 CO2 [Moles/Vol] 31.5 mmol/L 21.0-32.0 [facility] Chloride assayOrdered By: Flavia Tripp on 01-11-2025 Chloride [Moles/Vol] 98 mmol/L 98-108 [facility] Eosinophil percentageOrdered By: Seymour Tripp on 01-11-2025 Eosinophils/100 WBC (Bld) 9.3 % High 0-5 [facility] Erythrocyte distribution wid th ratioOrdered By: Seymour Tripp on 01-11-2025 Erythrocyte distribution width (RBC) [Ratio] 14.6 % 11.6-14.6 [facility] Erythrocyte distribution wid th standard deviationOrdered By: sarayboca grandecamila Tripp on 01-11-2025 Erythrocyte distribution width (RBC) [Ratio] 47.0 fl High 35.1-43.9 [facility] Glomerular filtration rate ( GFR) estimation/1.73 sq m using serum, plasma, or whole bOrdered By: sarayboca grandecamila Tripp on 01-11-2025 GFR/1.73 sq M.predicted among non-blacks MDRD (S/P/Bld) [Vol rate/Area] 89 mL/min/{1.73_m2} >60 [facility] Hematocrit Auto (Bld) [Volum e fraction]Ordered By: [facility]arch[facility] hospital[facility]ila Tripp on 01-11-2025 Hematocrit (Bld) [Volume fraction] 27.3 % Low 37-47 [facility] Hemoglobin measurementOrdere d By: Seymour Tripp on 01-11-2025 Hemoglobin (Bld) [Mass/Vol] 8.7 g/dL Low 12.0-15. 0 [facility] Immature granulocytes/100 WB C Auto (Bld)Ordered By: Seymour Tripp on 01-11-2025 Immature granulocytes/100 WBC (Bld) 0.400 % 0.0-0.9 [facility] MCV (mean corpuscular volume ) determinationOrdered By: Seymour Tripp on 01-11-2025 MCV (RBC) [Entitic vol] 89.5 fL 81-99 [facility] Mean corpuscular hemoglobin (MCH) determinationOrdered By: [facility] Cherokeecamila Tri[facility] on 01-11-2025 MCH (RBC) [Entitic mass] 28.5 pg 27.0-32.0 [facility] Monocyte percentageOrdered B y: Seymour Tripp on 01-11-2025 Monocytes/100 WBC (Bld) 8.2 % 0-10 [facility] Neutrophil percentageOrdered By: andres Tripp on 01-11-2025 Neutrophils/100 WBC (Bld) 51.2 % 47-70 [facility] Platelet countOrdered By: Flavia albarocamila Griderkaseymerline on 01-11-2025 Platelets (Bld) [#/Vol] 442 10*3/uL 150-450 [facility] Potassium measurement (mass/ volume)Ordered By: Seymour Griderkaseymerline on 01-11-2025 Potassium (Unsp spec) [Mass/Vol] 2.8 mmol/L Low 3.3-5.1 [facility] RBC Auto (Bld) [#/Vol]Ordere d By: Seymour Tripp on 01-11-2025 RBC (Bld) [#/Vol] 3.05 10*6/uL Low 4.2-5.4 [facility] Serum creatinine measurement (mass/volume)Ordered By: Seymour Tripp on 01-11-2025 Creatinine [Mass/Vol] 0.71 mg/dL 0.70-1.20 [facility] Serum glucose measurement (m ass/volume)Ordered By: Seymour Tripp on 01-11-2025 Glucose [Mass/Vol] 171 mg/dL High 70-99 [facility] Serum or plasma calcium jojo urement (mass/volume)Ordered By: Seymour Griderkaseymerline on 01-11-2025 Calcium [Mass/Vol] 8.9 mg/dL 7.6-11.0 [facility] Serum or plasma urea nitroge n measurement (mass/volume)Ordered By: Seymour Tripp on 01-11-2025 Urea nitrogen [Mass/Vol] 11 mg/dL 4-19 [facility] Sodium levelOrdered By: Fareed yamilet Cheokaseymerline on 01-11-2025 Sodium [Moles/Vol] 139 mmol/L 133-145 [facility] White blood cell (WBC) count Ordered By: Seymour Tripp on 01-11-2025 WBC (Bld) [#/Vol] 9.2 10*3/uL 4.4-11.0 [facility] Surgical pathology reportOrd ered By: Teri Hare on 01-06-2025 Surgical pathology study [facility] Surgical pathology study [facility] Absolute lymphocyte countOrd ered By: Fareedsammycamila Griderkaseymerline on 01-04-2025 Lymphocytes Auto (Unsp spec) [#/Vol] 1.67 10*3/uL 0.83-4.51 [facility] Anion gap in Serum or Plasma Ordered By: Seymour Griderkaseymerline on 01-04-2025 Anion gap [Moles/Vol] 11 mmol/L 5-15 [facility] Automated lymphocyte count a s percentage of total leukocytesOrdered By: Seymour Griderkaseymerline on 01-04-2025 Lymphocytes/100 WBC Auto (Unsp spec) 16.2 % Low 19-41 [facility] BUN/creatinine ratioOrdered By: Fareedsammycamila Griderkaseymerline on 01-04-2025 Urea nitrogen/Creatinine [Mass ratio] 19.8 mg/mg 10- [facility] Basophil percentageOrdered B y: Seymour Griderkaseymerline on 01-04-2025 Basophils/100 WBC (Bld) 0.7 % 0-1 [facility] Bilirubin, totalOrdered By: Fareedsammycamila Griderkaseymerline on 01-04-2025 Bilirubin [Mass/Vol] 0.60 mg/dL 0.00-1.30 [facility] Carbon dioxide, total [Moles /volume] in Central venous bloodOrdered By: Seymour Griderkaseymerline on 01-04-2025 CO2 [Moles/Vol] 31.0 mmol/L 21.0-32.0 [facility] Chloride assayOrdered By: Flavia sarayyamilet Griderkaseymerline on 01-04-2025 Chloride [Moles/Vol] 91 mmol/L Low 98-108 [facility] Eosinophil percentageOrdered By: Seymour Calderonmerline on 01-04-2025 Eosinophils/100 WBC (Bld) 2.8 % 0-5 [facility] Erythrocyte distribution wid th ratioOrdered By: Fareedyamilet Cheokaseymerline on 01-04-2025 Erythrocyte distribution width (RBC) [Ratio] 14.4 % 11.6-14.6 [facility] Erythrocyte distribution wid th standard deviationOrdered By: Seymour Griderkaseymerline on 01-04-2025 Erythrocyte distribution width (RBC) [Ratio] 47.5 fl High 35.1-43.9 [facility] Glomerular filtration rate ( GFR) estimation/1.73 sq m using serum, plasma, or whole bOrdered By: Seymour Tripp on 01-04-2025 GFR/1.73 sq M.predicted among non-blacks MDRD (S/P/Bld) [Vol rate/Area] 72 mL/min/{1.73_m2} >60 [facility] Hematocrit Auto (Bld) [Volum e fraction]Ordered By: Seymour Tripp on 01-04-2025 Hematocrit (Bld) [Volume fraction] 27.6 % Low 37-47 [facility] Hemoglobin measurementOrdere d By: Seymour Tripp on 01-04-2025 Hemoglobin (Bld) [Mass/Vol] 9.0 g/dL Low 12.0-15. 0 [facility] Immature granulocytes/100 WB C Auto (Bld)Ordered By: Seymour Tripp on 01-04-2025 Immature granulocytes/100 WBC (Bld) 0.400 % 0.0-0.9 [facility] MCV (mean corpuscular volume ) determinationOrdered By: Seymour Tripp on 01-04-2025 MCV (RBC) [Entitic vol] 91.4 fL 81-99 [facility] Mean corpuscular hemoglobin (MCH) determinationOrdered By: Seymour Tripp on 01-04-2025 MCH (RBC) [Entitic mass] 29.8 pg 27.0-32.0 [facility] Monocyte percentageOrdered B y: Seymour Tripp on 01-04-2025 Monocytes/100 WBC (Bld) 8.2 % 0-10 [facility] Neutrophil percentageOrdered By: andres Tripp on 01-04-2025 Neutrophils/100 WBC (Bld) 71.7 % High 47-70 [facility] No Panel InformationOrdered By: Seymour Tripp on 01-04-2025 41 U/L High <32 [facility] Platelet countOrdered By: Flavia Tripp on 01-04-2025 Platelets (Bld) [#/Vol] 423 10*3/uL 150-450 [facility] Potassium measurement (mass/ volume)Ordered By: Seymour Tripp on 01-04-2025 Potassium (Unsp spec) [Mass/Vol] 3.9 mmol/L 3.3-5.1 [facility] RBC Auto (Bld) [#/Vol]Ordere d By: Seymour Tripp on 01-04-2025 RBC (Bld) [#/Vol] 3.02 10*6/uL Low 4.2-5.4 [facility] Serum creatinine measurement (mass/volume)Ordered By: Seymour Tripp on 01-04-2025 Creatinine [Mass/Vol] 0.85 mg/dL 0.70-1.20 [facility] Serum globulin measurementOr dered By: Seymour Tripp on 01-04-2025 Globulin (S) [Mass/Vol] 3.3 g/dL 2.2-4.2 [facility] Serum glucose measurement (m ass/volume)Ordered By: Seymour Tripp on 01-04-2025 Glucose [Mass/Vol] 178 mg/dL High 70-99 [facility] Serum or plasma alanine martinez otransferase (ALT) measurementOrdered By: Seymour Tripp on 01-04-2025 ALT [Catalytic activity/Vol] 19 U/L <35 [facility] Serum or plasma albumin jojo urement (mass/volume)Ordered By: Seymour Tripp on 01-04-2025 Albumin [Mass/Vol] 3.3 g/dL Low 3.4-4.8 [facility] Serum or plasma albumin/glob ulin mass ratioOrdered By: Seymour Tripp on 01-04-2025 Albumin/Globulin [Mass ratio] 1.0 {ratio} 0.9-2.4 [facility] Serum or plasma alkaline kamila sphatase measurementOrdered By: Seymour Tripp on 01-04-2025 ALP [Catalytic activity/Vol] 71 U/L 35-104 [facility] Serum or plasma calcium jojo urement (mass/volume)Ordered By: Seymour Tripp on 01-04-2025 Calcium [Mass/Vol] 8.6 mg/dL 7.6-11.0 [facility] Serum or plasma urea nitroge n measurement (mass/volume)Ordered By: Seymour Cheocallie on 01-04-2025 Urea nitrogen [Mass/Vol] 17 mg/dL 4-19 [facility] Sodium levelOrdered By: Fareed Tripp on 01-04-2025 Sodium [Moles/Vol] 133 mmol/L 133-145 [facility] Total proteinOrdered By: Bradley Tripp on 01-04-2025 Protein [Mass/Vol] 6.6 g/dL 5.9-8.4 [facility] White blood cell (WBC) count Ordered By: Seymour Cheokaseymerline on 01-04-2025 WBC (Bld) [#/Vol] 10.3 10*3/uL 4.4-11.0 [facility] Absolute lymphocyte countOrd ered By: Clifton Wells on 01-03-2025 Lymphocytes Auto (Unsp spec) [#/Vol] 1.72 10*3/uL 0.83-4.51 [facility] Anion gap in Serum or Plasma Ordered By: Clifton Wells on 01-03-2025 Anion gap [Moles/Vol] 10 mmol/L 5-15 [facility] Automated lymphocyte count a s percentage of total leukocytesOrdered By: Clifton Wells on 01-03-2025 Lymphocytes/100 WBC Auto (Unsp spec) 16.9 % Low 19-41 [facility] BUN/creatinine ratioOrdered By: Clifton Wells on 01-03-2025 Urea nitrogen/Creatinine [Mass ratio] 23.7 mg/mg High 01-03 [facility] Basic Metabolic Profile (BMP )on 01-03-2025 BUN/CRE 23.7 RATIO High 01-03 [facility] Comment on above: Performed By: #### L 500.2500, L100.0100 ####[facility] [address] [place], [place], [id number] Calcium [Mass/Vol] 8.6 mg/dL Normal 7.6-11.0 [facility] Comment on above: Performed By: #### L 500.2500, L100.0100 ####[facility] [address] [place], [address] Chloride [Moles/Vol] 95 mmol/L Low 98-108 [facility] Comment on above: Performed By: #### L 500.2500, L100.0100 ####[facility] [address] [place], [address] CO2 [Moles/Vol] 30.9 mmol/L Normal 21.0-32.0 [facility] Comment on above: Performed By: #### L 500.2500, L100.0100 ####[facility] [address] [place], [address] Creatinine [Mass/Vol] 0.72 mg/dL Normal 0.70-1.20 [facility] Comment on above: Performed By: #### L 500.2500, L100.0100 ####[facility] [address] [place], [address] ECRCL 67.93 ml/min Normal 50-250 [facility] Comment on above: Performed By: #### L 500.2500, L100.0100 ####[facility] [address] [place], [address] GAP 10 Normal 5-15 [facility] Comment on above: Performed By: #### L 500.2500, L100.0100 ####[facility] [address] [place], [address] GFR/1.73 sq M.predicted among non-blacks MDRD (S/P/Bld) [Vol rate/Area] 88 mL/min/{1.73_m2} Normal >60 [facility] Comment on above: Result Comment: mL/m in/1.73m2 CKD-EPI Creatinine Equation (2020) Performed By: #### L 500.2500, L100.0100 ####[facility] [address] [place], [address] Glucose [Mass/Vol] 158 mg/dL High 70-99 [facility] Comment on above: Performed By: #### L 500.2500, L100.0100 ####[facility] [address] [place], [address] Potassium [Moles/Vol] 3.4 mmol/L Normal 3.3-5.1 [facility] Comment on above: Performed By: #### L 500.2500, L100.0100 ####[facility] [address] [place], [address] Sodium [Moles/Vol] 136 mmol/L Normal 133-145 [facility] Comment on above: Performed By: #### L 500.2500, L100.0100 ####[facility] [address] [place], [address] Urea nitrogen [Mass/Vol] 17 mg/dL Normal 4-19 [facility] Comment on above: Performed By: #### L 500.2500, L100.0100 ####[facility] [address] [place], [address] Basophil percentageOrdered B y: Cliftongordon Wells on 01-03-2025 Basophils/100 WBC (Bld) 0.7 % 0-1 [facility] Bedside Glucoseon 01-03-2025 FINGERSTICK GLU 190 mg/dL High 74-106 [facility] Comment on above: Result Comment: NATALIIA GEMENT OF PATIENT CARE PER NURSING PROTOCOL Performed By: #### L 501.080 ####[facility] [address] [place], [address] FINGERSTICK GLU 272 mg/dL High 74-106 [facility] Comment on above: Result Comment: NATALIIA GEMENT OF PATIENT CARE PER NURSING PROTOCOL Performed By: #### L 501.080 ####[facility] [address] [place], [address] FINGERSTICK GLU 221 mg/dL High 74-106 [facility] Comment on above: Result Comment: NATALIIA HERNANDEZ OF PATIENT CARE PER NURSING PROTOCOL Performed By: #### L 501.080 ####[facility] [address] [place], [address] CBC W/Diff, Automatedon 10-2 0-2025 Absolute Lymph 1.72 X10 3/uL Normal 0.83-4.51 [facility] Comment on above: Performed By: #### L 500.2500, L100.0100 ####[facility] [address] [place], [address] Absolute Neut 6.8 X10 3/uL Normal 2.0-7.7 [facility] Comment on above: Performed By: #### L 500.2500, L100.0100 ####[facility] [address] [place], [address] Basophils/100 WBC (Bld) 0.7 % Normal 0-1 [facility] Comment on above: Performed By: #### L 500.2500, L100.0100 ####[facility] [address] [place], [address] Eosinophils/100 WBC (Bld) 7.1 % High 0-5 [facility] Comment on above: Performed By: #### L 500.2500, L100.0100 ####[facility] [address] [place], [address] Erythrocyte distribution width (RBC) [Ratio] 14.2 % Normal 11.6-14.6 [facility] Comment on above: Performed By: #### L 500.2500, L100.0100 ####[facility] [address] [place], [address] Hematocrit (Bld) [Volume fraction] 28.1 % Low 37-47 [facility] Comment on above: Performed By: #### L 500.2500, L100.0100 ####[facility] [address] [place], [address] Hemoglobin (Bld) [Mass/Vol] 8.9 g/dL Low 12.0-15. 0 [facility] Comment on above: Performed By: #### L 500.2500, L100.0100 ####[facility] [address] [place], [address] IG% 0.300 Normal 0.0-0.9 [facility] Comment on above: Result Comment: IG% - Immature Granulocytes (promyelocytes, myelocytes andmetamyelocytes) > 1% indicates that a LEFT SHIFT is Present. Performed By: #### L 500.2500, L100.0100 ####[facility] [address] [place], [address] Lymphocytes/100 WBC (Bld) 16.9 % Low 19-41 [facility] Comment on above: Performed By: #### L 500.2500, L100.0100 ####[facility] [address] [place], [address] MCH (RBC) [Entitic mass] 29.3 pg Normal 27.0-32.0 [facility] Comment on above: Performed By: #### L 500.2500, L100.0100 ####[facility] [address] [place], [address] MCHC (RBC) [Mass/Vol] 31.7 g/dL Low 32-36 [facility] Comment on above: Performed By: #### L 500.2500, L100.0100 ####[facility] [address] [place], [address] MCV (RBC) [Entitic vol] 92.4 fL Normal 81-99 [facility] Comment on above: Performed By: #### L 500.2500, L100.0100 ####[facility] [address] [place], [address] Monocytes/100 WBC (Bld) 8.0 % Normal 0-10 [facility] Comment on above: Performed By: #### L 500.2500, L100.0100 ####[facility] [address] [place], [address] Neutrophils/100 WBC (Bld) 67.0 % Normal 47-70 [facility] Comment on above: Performed By: #### L 500.2500, L100.0100 ####[facility] [address] [place], [address] Nucleated RBC (Bld) [#/Vol] 0 10*3/uL Normal 0-5 [facility] Comment on above: Performed By: #### L 500.2500, L100.0100 ####[facility] [address] [place], [address] Platelet mean volume (Bld) [Entitic vol] 9.3 fL Normal 6.2-12.0 [facility] Comment on above: Performed By: #### L 500.2500, L100.0100 ####[facility] [address] [place], [address] Platelets (Bld) [#/Vol] 394 10*3/uL Normal 150-450 [facility] Comment on above: Performed By: #### L 500.2500, L100.0100 ####[facility] [address] [place], [address] RBC (Bld) [#/Vol] 3.04 10*6/uL Low 4.2-5.4 [facility] Comment on above: Performed By: #### L 500.2500, L100.0100 ####[facility] [address] [place], [address] RDW SD 47.8 fl High 35.1-43.9 [facility] Comment on above: Performed By: #### L 500.2500, L100.0100 ####[facility] [address] [place], [address] WBC (Bld) [#/Vol] 10.2 10*3/uL Normal 4.4-11.0 [facility] Comment on above: Performed By: #### L 500.2500, L100.0100 ####[facility] [address] [place], [address] Carbon dioxide, total [Moles /volume] in Central venous bloodOrdered By: Clifton Wells on 01-03-2025 CO2 [Moles/Vol] 30.9 mmol/L 21.0-32.0 [facility] Chloride assayOrdered By: Lindsey Wells on 01-03-2025 Chloride [Moles/Vol] 95 mmol/L Low 98-108 [facility] Eosinophil percentageOrdered By: Clifton Wells on 01-03-2025 Eosinophils/100 WBC (Bld) 7.1 % High 0-5 [facility] Erythrocyte distribution wid th ratioOrdered By: Clifton Wells on 01-03-2025 Erythrocyte distribution width (RBC) [Ratio] 14.2 % 11.6-14.6 [facility] Erythrocyte distribution wid th standard deviationOrdered By: Clifton Wells on 01-03-2025 Erythrocyte distribution width (RBC) [Ratio] 47.8 fl High 35.1-43.9 [facility] Glomerular filtration rate ( GFR) estimation/1.73 sq m using serum, plasma, or whole bOrdered By: Clifton Wells on 01-03-2025 GFR/1.73 sq M.predicted among non-blacks MDRD (S/P/Bld) [Vol rate/Area] 88 mL/min/{1.73_m2} >60 [facility] Glucose measurement at bedsi deOrdered By: Clifton Wells on 01-03-2025 Glucose [Mass/Vol] 272 mg/dL High 74-106 [facility] Hematocrit Auto (Bld) [Volum e fraction]Ordered By: Clifton Wells on 01-03-2025 Hematocrit (Bld) [Volume fraction] 28.1 % Low 37-47 [facility] Hemoglobin measurementOrdere d By: Clifton Wells on 01-03-2025 Hemoglobin (Bld) [Mass/Vol] 8.9 g/dL Low 12.0-15. 0 [facility] Immature granulocytes/100 WB C Auto (Bld)Ordered By: Clifton Wells on 01-03-2025 Immature granulocytes/100 WBC (Bld) 0.300 % 0.0-0.9 [facility] MCV (mean corpuscular volume ) determinationOrdered By: Clifton Wells on 01-03-2025 MCV (RBC) [Entitic vol] 92.4 fL 81-99 [facility] Mean corpuscular hemoglobin (MCH) determinationOrdered By: Clifton Wells on 01-03-2025 MCH (RBC) [Entitic mass] 29.3 pg 27.0-32.0 [facility] Monocyte percentageOrdered B y: Clifton Wells on 01-03-2025 Monocytes/100 WBC (Bld) 8.0 % 0-10 [facility] Neutrophil percentageOrdered By: Clifton Wells on 01-03-2025 Neutrophils/100 WBC (Bld) 67.0 % 47-70 [facility] Platelet countOrdered By: Lindsey Wells on 01-03-2025 Platelets (Bld) [#/Vol] 394 10*3/uL 150-450 [facility] Potassium measurement (mass/ volume)Ordered By: Clifton Wells on 01-03-2025 Potassium (Unsp spec) [Mass/Vol] 3.4 mmol/L 3.3-5.1 [facility] RBC Auto (Bld) [#/Vol]Ordere d By: Clifton Wells on 01-03-2025 RBC (Bld) [#/Vol] 3.04 10*6/uL Low 4.2-5.4 [facility] Serum creatinine measurement (mass/volume)Ordered By: Clifton Wells on 01-03-2025 Creatinine [Mass/Vol] 0.72 mg/dL 0.70-1.20 [facility] Serum glucose measurement (m ass/volume)Ordered By: Clifton Wells on 01-03-2025 Glucose [Mass/Vol] 158 mg/dL High 70-99 [facility] Serum or plasma calcium jojo urement (mass/volume)Ordered By: Clifton Wells on 01-03-2025 Calcium [Mass/Vol] 8.6 mg/dL 7.6-11.0 [facility] Serum or plasma urea nitroge n measurement (mass/volume)Ordered By: Clifton Wells on 01-03-2025 Urea nitrogen [Mass/Vol] 17 mg/dL 4-19 [facility] Sodium levelOrdered By: Helga Wells on 01-03-2025 Sodium [Moles/Vol] 136 mmol/L 133-145 [facility] White blood cell (WBC) count Ordered By: Clifton Wells on 01-03-2025 WBC (Bld) [#/Vol] 10.2 10*3/uL 4.4-11.0 [facility] Basic Metabolic Profile (BMP )on 01-02-2025 BUN/CRE 25.0 RATIO High 01-03 [facility] Comment on above: Performed By: #### L 100.0100, L500.2500 ####[facility] [address] [place], [address] Calcium [Mass/Vol] 8.9 mg/dL Normal 7.6-11.0 [facility] Comment on above: Performed By: #### L 100.0100, L500.2500 ####[facility] [address] [place], [address] Chloride [Moles/Vol] 94 mmol/L Low 98-108 [facility] Comment on above: Performed By: #### L 100.0100, L500.2500 ####[facility] [address] [place], [address] CO2 [Moles/Vol] 31.5 mmol/L Normal 21.0-32.0 [facility] Comment on above: Performed By: #### L 100.0100, L500.2500 ####[facility] [address] [place], [address] Creatinine [Mass/Vol] 0.84 mg/dL Normal 0.70-1.20 [facility] Comment on above: Performed By: #### L 100.0100, L500.2500 ####[facility] [address] [place], [address] ECRCL 64.69 ml/min Normal 50-250 [facility] Comment on above: Performed By: #### L 100.0100, L500.2500 ####[facility] [address] [place], [address] GAP 10 Normal 5-15 [facility] Comment on above: Performed By: #### L 100.0100, L500.2500 ####[facility] [address] [place], [address] GFR/1.73 sq M.predicted among non-blacks MDRD (S/P/Bld) [Vol rate/Area] 73 mL/min/{1.73_m2} Normal >60 [facility] Comment on above: Result Comment: mL/m in/1.73m2 CKD-EPI Creatinine Equation (2020) Performed By: #### L 100.0100, L500.2500 ####[facility] [address] [place], [address] Glucose [Mass/Vol] 196 mg/dL High 70-99 [facility] Comment on above: Performed By: #### L 100.0100, L500.2500 ####[facility] [address] [place], [address] Potassium [Moles/Vol] 3.5 mmol/L Normal 3.3-5.1 [facility] Comment on above: Performed By: #### L 100.0100, L500.2500 ####[facility] [address] [place], [address] Sodium [Moles/Vol] 136 mmol/L Normal 133-145 [facility] Comment on above: Performed By: #### L 100.0100, L500.2500 ####[facility] [address] [place], [address] Urea nitrogen [Mass/Vol] 21 mg/dL High -19 [facility] Comment on above: Performed By: #### L 100.0100, L500.2500 ####[facility] [address] [place], [address] Bedside Glucoseon 01-02-2025 FINGERSTICK GLU 209 mg/dL High 74-106 [facility] Comment on above: Result Comment: NATALIIA GEMENT OF PATIENT CARE PER NURSING PROTOCOL Performed By: #### L 501.080 ####[facility] [address] [place], [address] FINGERSTICK GLU 233 mg/dL High 74-106 [facility] Comment on above: Result Comment: NATALIIA GEMENT OF PATIENT CARE PER NURSING PROTOCOL Performed By: #### L 501.080 ####[facility] [address] [place], [address] FINGERSTICK GLU 223 mg/dL High 74-106 [facility] Comment on above: Result Comment: NATALIIA GEMENT OF PATIENT CARE PER NURSING PROTOCOL Performed By: #### L 501.080 ####[facility] [address] [place], [address] FINGERSTICK GLU 237 mg/dL High 74-106 [facility] Comment on above: Result Comment: NATALIIA GEMENT OF PATIENT CARE PER NURSING PROTOCOL Performed By: #### L 501.080 ####[facility] [address] [place], [address] FINGERSTICK GLU 183 mg/dL High 74-106 [facility] Comment on above: Result Comment: NATALIIA GEMENT OF PATIENT CARE PER NURSING PROTOCOL Performed By: #### L 501.080 ####[facility] [address] [place], [address] CBC W/Diff, Automatedon 10- Absolute Lymph 1.93 X10 3/uL Normal 0.83-4.51 [facility] Comment on above: Performed By: #### L 100.0100, L500.2500 ####[facility] [address] [place], [address] Absolute Neut 5.1 X10 3/uL Normal 2.0-7.7 [facility] Comment on above: Performed By: #### L 100.0100, L500.2500 ####[facility] [address] [place], [address] Basophils/100 WBC (Bld) 0.7 % Normal 0-1 [facility] Comment on above: Performed By: #### L 100.0100, L500.2500 ####[facility] [address] [place], [address] Eosinophils/100 WBC (Bld) 7.6 % High 0-5 [facility] Comment on above: Performed By: #### L 100.0100, L500.2500 ####[facility] [address] [place], [address] Erythrocyte distribution width (RBC) [Ratio] 14.6 % Normal 11.6-14.6 [facility] Comment on above: Performed By: #### L 100.0100, L500.2500 ####[facility] [address] [place], [address] Hematocrit (Bld) [Volume fraction] 26.9 % Low 37-47 [facility] Comment on above: Performed By: #### L 100.0100, L500.2500 ####[facility] [address] [place], [address] Hemoglobin (Bld) [Mass/Vol] 8.7 g/dL Low 12.0-15. 0 [facility] Comment on above: Performed By: #### L 100.0100, L500.2500 ####[facility] [address] [place], [address] IG% 0.700 Normal 0.0-0.9 [facility] Comment on above: Result Comment: IG% - Immature Granulocytes (promyelocytes, myelocytes andmetamyelocytes) > 1% indicates that a LEFT SHIFT is Present. Performed By: #### L 100.0100, L500.2500 ####[facility] [address] [place], [address] Lymphocytes/100 WBC (Bld) 22.3 % Normal 19-41 [facility] Comment on above: Performed By: #### L 100.0100, L500.2500 ####[facility] [address] [place], [address] MCH (RBC) [Entitic mass] 29.9 pg Normal 27.0-32.0 [facility] Comment on above: Performed By: #### L 100.0100, L500.2500 ####[facility] [address] [place], [address] MCHC (RBC) [Mass/Vol] 32.3 g/dL Normal 32-36 [facility] Comment on above: Performed By: #### L 100.0100, L500.2500 ####[facility] [address] [place], [address] MCV (RBC) [Entitic vol] 92.4 fL Normal 81-99 [facility] Comment on above: Performed By: #### L 100.0100, L500.2500 ####[facility] [address] [place], [address] Monocytes/100 WBC (Bld) 10.1 % High 0-10 [facility] Comment on above: Performed By: #### L 100.0100, L500.2500 ####[facility] [address] [place], [address] Neutrophils/100 WBC (Bld) 58.6 % Normal 47-70 [facility] Comment on above: Performed By: #### L 100.0100, L500.2500 ####[facility] [address] [place], [address] Nucleated RBC (Bld) [#/Vol] 0.2 10*3/uL Normal 0-5 [facility] Comment on above: Performed By: #### L 100.0100, L500.2500 ####[facility] [address] [place], [address] Platelet mean volume (Bld) [Entitic vol] 9.4 fL Normal 6.2-12.0 [facility] Comment on above: Performed By: #### L 100.0100, L500.2500 ####[facility] [address] [place], [address] Platelets (Bld) [#/Vol] 368 10*3/uL Normal 150-450 [facility] Comment on above: Performed By: #### L 100.0100, L500.2500 ####[facility] [address] [place], [address] RBC (Bld) [#/Vol] 2.91 10*6/uL Low 4.2-5.4 [facility] Comment on above: Performed By: #### L 100.0100, L500.2500 ####[facility] [address] [place], [address] RDW SD 49.2 fl High 35.1-43.9 [facility] Comment on above: Performed By: #### L 100.0100, L500.2500 ####[facility] [address] [place], [address] WBC (Bld) [#/Vol] 8.7 10*3/uL Normal 4.4-11.0 [facility] Comment on above: Performed By: #### L 100.0100, L500.2500 ####[facility] [address] [place], [address] Bedside Glucoseon 01-01-2025 FINGERSTICK GLU 226 mg/dL High 74-106 [facility] Comment on above: Result Comment: NATALIIA GEMENT OF PATIENT CARE PER NURSING PROTOCOL Performed By: #### L 501.080 ####[facility] [address] [place], [address] FINGERSTICK GLU 208 mg/dL High 74-106 [facility] Comment on above: Result Comment: NATALIIA GEMENT OF PATIENT CARE PER NURSING PROTOCOL Performed By: #### L 501.080 ####[facility] [address] [place], [address] FINGERSTICK GLU 263 mg/dL High 74-106 [facility] Comment on above: Result Comment: NATALIIA GEMENT OF PATIENT CARE PER NURSING PROTOCOL Performed By: #### L 501.080 ####[facility] [address] [place], [address] FINGERSTICK GLU 176 mg/dL High 74-106 [facility] Comment on above: Result Comment: NATALIIA GEMENT OF PATIENT CARE PER NURSING PROTOCOL Performed By: #### L 501.080 ####[facility] [address] [place], [address] Chest 1 View (Portable)on Chest 1 View (Portable) Normal [facility] Basic Metabolic Profile (BMP )on 12-31-2024 BUN/CRE 18.7 RATIO Normal - [facility] Comment on above: Performed By: #### L 500.2500, L100.0100 ####[facility] [address] [place], [address] Calcium [Mass/Vol] 8.5 mg/dL Normal 7.6-11.0 [facility] Comment on above: Performed By: #### L 500.2500, L100.0100 ####[facility] [address] [place], [address] Chloride [Moles/Vol] 99 mmol/L Normal 98-108 [facility] Comment on above: Performed By: #### L 500.2500, L100.0100 ####[facility] [address] [place], [address] CO2 [Moles/Vol] 29.3 mmol/L Normal 21.0-32.0 [facility] Comment on above: Performed By: #### L 500.2500, L100.0100 ####[facility] [address] [place], [address] Creatinine [Mass/Vol] 0.77 mg/dL Normal 0.70-1.20 [facility] Comment on above: Performed By: #### L 500.2500, L100.0100 ####[facility] [address] [place], [address] ECRCL 69.95 ml/min Normal 50-250 [facility] Comment on above: Performed By: #### L 500.2500, L100.0100 ####[facility] [address] [place], [address] GAP 11 Normal 5-15 [facility] Comment on above: Performed By: #### L 500.2500, L100.0100 ####[facility] [address] [place], [address] GFR/1.73 sq M.predicted among non-blacks MDRD (S/P/Bld) [Vol rate/Area] 81 mL/min/{1.73_m2} Normal >60 [facility] Comment on above: Result Comment: mL/m in/1.73m2 CKD-EPI Creatinine Equation (2020) Performed By: #### L 500.2500, L100.0100 ####[facility] [address] [place], [address] Glucose [Mass/Vol] 167 mg/dL High 70-99 [facility] Comment on above: Performed By: #### L 500.2500, L100.0100 ####[facility] [address] [place], [address] Potassium [Moles/Vol] 3.1 mmol/L Low 3.3-5.1 [facility] Comment on above: Performed By: #### L 500.2500, L100.0100 ####[facility] [address] [place], [address] Sodium [Moles/Vol] 139 mmol/L Normal 133-145 [facility] Comment on above: Performed By: #### L 500.2500, L100.0100 ####[facility] [address] [place], [address] Urea nitrogen [Mass/Vol] 14 mg/dL Normal 4-19 [facility] Comment on above: Performed By: #### L 500.2500, L100.0100 ####[facility] [address] [place], [address] Bedside Glucoseon 12-31-2024 FINGERSTICK GLU 212 mg/dL High 74-106 [facility] Comment on above: Result Comment: NATALIIA GEMENT OF PATIENT CARE PER NURSING PROTOCOL Performed By: #### L 501.080 ####[facility] [address] [place], [address] FINGERSTICK GLU 243 mg/dL High 74-106 [facility] Comment on above: Result Comment: NATALIIA GEMENT OF PATIENT CARE PER NURSING PROTOCOL Performed By: #### L 501.080 ####[facility] [address] [place], [address] FINGERSTICK GLU 200 mg/dL High 74-106 [facility] Comment on above: Result Comment: NATALIIA GEMENT OF PATIENT CARE PER NURSING PROTOCOL Performed By: #### L 501.080 ####[facility] [address] [place], [address] FINGERSTICK GLU 235 mg/dL High 74-106 [facility] Comment on above: Result Comment: NATALIIA GEMENT OF PATIENT CARE PER NURSING PROTOCOL Performed By: #### L 501.080 ####[facility] [address] [place], [address] FINGERSTICK GLU 161 mg/dL High 74-106 [facility] Comment on above: Result Comment: NATALIIA GEMENT OF PATIENT CARE PER NURSING PROTOCOL Performed By: #### L 501.080 ####[facility] [address] [place], [address] FINGERSTICK GLU 217 mg/dL High 74-106 [facility] Comment on above: Result Comment: NATALIIA GEMENT OF PATIENT CARE PER NURSING PROTOCOL Performed By: #### L 501.080 ####[facility] [address] [place], [address] CBC W/Diff, Automatedon 10- Absolute Lymph 1.78 X10 3/uL Normal 0.83-4.51 [facility] Comment on above: Performed By: #### L 500.2500, L100.0100 ####[facility] [address] [place], [address] Absolute Neut 5.8 X10 3/uL Normal 2.0-7.7 [facility] Comment on above: Performed By: #### L 500.2500, L100.0100 ####[facility] [address] [place], [address] Basophils/100 WBC (Bld) 0.6 % Normal 0-1 [facility] Comment on above: Performed By: #### L 500.2500, L100.0100 ####[facility] [address] [place], [address] Eosinophils/100 WBC (Bld) 4.2 % Normal 0-5 [facility] Comment on above: Performed By: #### L 500.2500, L100.0100 ####[facility] [address] [place], [address] Erythrocyte distribution width (RBC) [Ratio] 15.2 % High 11.6-14.6 [facility] Comment on above: Performed By: #### L 500.2500, L100.0100 ####[facility] [address] [place], [address] Hematocrit (Bld) [Volume fraction] 25.2 % Low 37-47 [facility] Comment on above: Performed By: #### L 500.2500, L100.0100 ####[facility] [address] [place], [address] Hemoglobin (Bld) [Mass/Vol] 8.3 g/dL Low 12.0-15. 0 [facility] Comment on above: Performed By: #### L 500.2500, L100.0100 ####[facility] [address] [place], [address] IG% 0.500 Normal 0.0-0.9 [facility] Comment on above: Result Comment: IG% - Immature Granulocytes (promyelocytes, myelocytes andmetamyelocytes) > 1% indicates that a LEFT SHIFT is Present. Performed By: #### L 500.2500, L100.0100 ####[facility] [address] [place], [address] Lymphocytes/100 WBC (Bld) 20.1 % Normal 19-41 [facility] Comment on above: Performed By: #### L 500.2500, L100.0100 ####[facility] [address] [place], [address] MCH (RBC) [Entitic mass] 30.7 pg Normal 27.0-32.0 [facility] Comment on above: Performed By: #### L 500.2500, L100.0100 ####[facility] [address] [place], [address] MCHC (RBC) [Mass/Vol] 32.9 g/dL Normal 32-36 [facility] Comment on above: Performed By: #### L 500.2500, L100.0100 ####[facility] [address] [place], [address] MCV (RBC) [Entitic vol] 93.3 fL Normal 81-99 [facility] Comment on above: Performed By: #### L 500.2500, L100.0100 ####[facility] [address] [place], [address] Monocytes/100 WBC (Bld) 9.7 % Normal 0-10 [facility] Comment on above: Performed By: #### L 500.2500, L100.0100 ####[facility] [address] [place], [address] Neutrophils/100 WBC (Bld) 64.9 % Normal 47-70 [facility] Comment on above: Performed By: #### L 500.2500, L100.0100 ####[facility] [address] [place], [address] Nucleated RBC (Bld) [#/Vol] 0 10*3/uL Normal 0-5 [facility] Comment on above: Performed By: #### L 500.2500, L100.0100 ####[facility] [address] [place], [address] Platelet mean volume (Bld) [Entitic vol] 9.7 fL Normal 6.2-12.0 [facility] Comment on above: Performed By: #### L 500.2500, L100.0100 ####[facility] [address] [place], [address] Platelets (Bld) [#/Vol] 310 10*3/uL Normal 150-450 [facility] Comment on above: Performed By: #### L 500.2500, L100.0100 ####[facility] [address] [place], [address] RBC (Bld) [#/Vol] 2.70 10*6/uL Low 4.2-5.4 [facility] Comment on above: Performed By: #### L 500.2500, L100.0100 ####[facility] [address] [place], [address] RDW SD 50.8 fl High 35.1-43.9 [facility] Comment on above: Performed By: #### L 500.2500, L100.0100 ####[facility] [address] [place], [address] WBC (Bld) [#/Vol] 8.9 10*3/uL Normal 4.4-11.0 [facility] Comment on above: Performed By: #### L 500.2500, L100.0100 ####[facility] [address] [place], [address] Natriuretic peptide.B prohor bonnie N-Terminal [Mass/volume] in Serum or PlasmaOrdered By: Keshav Elizondo on 12-31-2024 Natriuretic peptide.B prohormone N-Terminal [Mass/Vol] 154 pg/mL <900 [facility] Pro- Brain NATRIURETIC PEPTI Zoila 12-31-2024 Natriuretic peptide B (Bld) [Mass/Vol] 154 pg/mL Normal <=900 [facility] Comment on above: Result Comment: Hear t Failure Unlikely: < 300 pg/mLHeart Failure Likely< 50 Years: > 450 pg/mL50-75 Years: > 900 pg/mL>75 Years: > 1800 pg/mL Performed By: #### L 503.7505 ####[facility] [address] [place], [address] Basic Metabolic Profile (BMP )on 12-30-2024 BUN/CRE 14.9 RATIO Normal 10-20 [facility] Comment on above: Performed By: #### L 100.0100, L500.2500 ####[facility] [address] [place], [address] Calcium [Mass/Vol] 8.2 mg/dL Normal 7.6-11.0 [facility] Comment on above: Performed By: #### L 100.0100, L500.2500 ####[facility] [address] [place], [address] Chloride [Moles/Vol] 104 mmol/L Normal 98-108 [facility] Comment on above: Performed By: #### L 100.0100, L500.2500 ####[facility] [address] [place], [address] CO2 [Moles/Vol] 26.0 mmol/L Normal 21.0-32.0 [facility] Comment on above: Performed By: #### L 100.0100, L500.2500 ####[facility] [address] [place], [address] Creatinine [Mass/Vol] 0.70 mg/dL Normal 0.70-1.20 [facility] Comment on above: Performed By: #### L 100.0100, L500.2500 ####[facility] [address] [place], [address] ECRCL 70.18 ml/min Normal 50-250 [facility] Comment on above: Performed By: #### L 100.0100, L500.2500 ####[facility] [address] [place], [address] GAP 7 Normal 5-15 [facility] Comment on above: Performed By: #### L 100.0100, L500.2500 ####[facility] [address] [place], [address] GFR/1.73 sq M.predicted among non-blacks MDRD (S/P/Bld) [Vol rate/Area] 91 mL/min/{1.73_m2} Normal >60 [facility] Comment on above: Result Comment: mL/m in/1.73m2 CKD-EPI Creatinine Equation (2020) Performed By: #### L 100.0100, L500.2500 ####[facility] [address] [place], [address] Glucose [Mass/Vol] 164 mg/dL High 70-99 [facility] Comment on above: Performed By: #### L 100.0100, L500.2500 ####[facility] [address] [place], [address] Potassium [Moles/Vol] 3.8 mmol/L Normal 3.3-5.1 [facility] Comment on above: Performed By: #### L 100.0100, L500.2500 ####[facility] [address] [place], [address] Sodium [Moles/Vol] 137 mmol/L Normal 133-145 [facility] Comment on above: Performed By: #### L 100.0100, L500.2500 ####[facility] [address] [place], [address] Urea nitrogen [Mass/Vol] 10 mg/dL Normal 4-19 [facility] Comment on above: Performed By: #### L 100.0100, L500.2500 ####[facility] [address] [place], [address] Bedside Glucoseon 12-30-2024 FINGERSTICK GLU 268 mg/dL High 74-106 [facility] Comment on above: Result Comment: NATALIIA HERNANDEZ OF PATIENT CARE PER NURSING PROTOCOL Performed By: #### L 501.080 ####[facility] [address] [place], [address] FINGERSTICK GLU 232 mg/dL High 74-106 [facility] Comment on above: Result Comment: NATALIIA GEMENT OF PATIENT CARE PER NURSING PROTOCOL Performed By: #### L 501.080 ####[facility] [address] [place], [address] FINGERSTICK GLU 177 mg/dL High 74-106 [facility] Comment on above: Result Comment: NATALIIA GEMENT OF PATIENT CARE PER NURSING PROTOCOL Performed By: #### L 501.080 ####[facility] [address] [place], [address] CBC W/Diff, Automatedon 10-1 Absolute Lymph 2.08 X10 3/uL Normal 0.83-4.51 [facility] Comment on above: Performed By: #### L 100.0100, L500.2500 ####[facility] [address] [place], [address] Absolute Neut 4.0 X10 3/uL Normal 2.0-7.7 [facility] Comment on above: Performed By: #### L 100.0100, L500.2500 ####[facility] [address] [place], [address] Basophils/100 WBC (Bld) 0.5 % Normal 0-1 [facility] Comment on above: Performed By: #### L 100.0100, L500.2500 ####[facility] [address] [place], [address] Eosinophils/100 WBC (Bld) 8.6 % High 0-5 [facility] Comment on above: Performed By: #### L 100.0100, L500.2500 ####[facility] [address] [place], [address] Erythrocyte distribution width (RBC) [Ratio] 15.9 % High 11.6-14.6 [facility] Comment on above: Performed By: #### L 100.0100, L500.2500 ####[facility] [address] [place], [address] Hematocrit (Bld) [Volume fraction] 22.7 % Low 37-47 [facility] Comment on above: Performed By: #### L 100.0100, L500.2500 ####[facility] [address] [place], [address] Hemoglobin (Bld) [Mass/Vol] 7.3 g/dL Low 12.0-15. 0 [facility] Comment on above: Performed By: #### L 100.0100, L500.2500 ####[facility] [address] [place], [address] IG% 0.400 Normal 0.0-0.9 [facility] Comment on above: Result Comment: IG% - Immature Granulocytes (promyelocytes, myelocytes andmetamyelocytes) > 1% indicates that a LEFT SHIFT is Present. Performed By: #### L 100.0100, L500.2500 ####[facility] [address] [place], [address] Lymphocytes/100 WBC (Bld) 27.7 % Normal 19-41 [facility] Comment on above: Performed By: #### L 100.0100, L500.2500 ####[facility] [address] [place], [address] MCH (RBC) [Entitic mass] 31.1 pg Normal 27.0-32.0 [facility] Comment on above: Performed By: #### L 100.0100, L500.2500 ####[facility] [address] [place], [address] MCHC (RBC) [Mass/Vol] 32.2 g/dL Normal 32-36 [facility] Comment on above: Performed By: #### L 100.0100, L500.2500 ####[facility] [address] [place], [address] MCV (RBC) [Entitic vol] 96.6 fL Normal 81-99 [facility] Comment on above: Performed By: #### L 100.0100, L500.2500 ####[facility] [address] [place], [address] Monocytes/100 WBC (Bld) 9.6 % Normal 0-10 [facility] Comment on above: Performed By: #### L 100.0100, L500.2500 ####[facility] [address] [place], [address] Neutrophils/100 WBC (Bld) 53.2 % Normal 47-70 [facility] Comment on above: Performed By: #### L 100.0100, L500.2500 ####[facility] [address] [place], [address] Nucleated RBC (Bld) [#/Vol] 0 10*3/uL Normal 0-5 [facility] Comment on above: Performed By: #### L 100.0100, L500.2500 ####[facility] [address] [place], [address] Platelet mean volume (Bld) [Entitic vol] 9.5 fL Normal 6.2-12.0 [facility] Comment on above: Performed By: #### L 100.0100, L500.2500 ####[facility] [address] [place], [address] Platelets (Bld) [#/Vol] 230 10*3/uL Normal 150-450 [facility] Comment on above: Performed By: #### L 100.0100, L500.2500 ####[facility] [address] [place], [address] RBC (Bld) [#/Vol] 2.35 10*6/uL Low 4.2-5.4 [facility] Comment on above: Performed By: #### L 100.0100, L500.2500 ####[facility] [address] [place], [address] RDW SD 54.6 fl High 35.1-43.9 [facility] Comment on above: Performed By: #### L 100.0100, L500.2500 ####[facility] [address] [place], [address] WBC (Bld) [#/Vol] 7.5 10*3/uL Normal 4.4-11.0 [facility] Comment on above: Performed By: #### L 100.0100, L500.2500 ####[facility] [address] [place], [address] Echo Completeon 12-30-2024 Echo Complete Normal [facility] Echocardiogram study reportO rdered By: Julian Paul on 12-30-2024 Study report [facility] Work Phone: Study report [facility] Work Phone: HH, Hemoglobin AND Hematocri ton 12-30-2024 Hematocrit (Bld) [Volume fraction] 25.0 % Low 37-47 [facility] Comment on above: Performed By: #### L 100.0600 ####[facility] [address] [place], [address] Hemoglobin (Bld) [Mass/Vol] 7.9 g/dL Low 12.0-15. 0 [facility] Comment on above: Performed By: #### L 100.0600 ####[facility] [address] [place], [address] Urine Cultureon 12-30-2024 URC Normal [facility] Comment on above: Performed By: #### M 100.2200 ####[facility] [address] [place], [address] Basic Metabolic Profile (BMP )on 12-29-2024 BUN/CRE 13.9 RATIO Normal 10-20 [facility] Comment on above: Performed By: #### L 500.2500, L501.2300, L501.5200, L100.0100 ####[facility] [address] [place], [address] Calcium [Mass/Vol] 8.0 mg/dL Normal 7.6-11.0 [facility] Comment on above: Performed By: #### L 500.2500, L501.2300, L501.5200, L100.0100 ####[facility] [address] [place], [address] Chloride [Moles/Vol] 107 mmol/L Normal 98-108 [facility] Comment on above: Performed By: #### L 500.2500, L501.2300, L501.5200, L100.0100 ####[facility] [address] [place], [address] CO2 [Moles/Vol] 25.3 mmol/L Normal 21.0-32.0 [facility] Comment on above: Performed By: #### L 500.2500, L501.2300, L501.5200, L100.0100 ####[facility] [address] [place], [address] Creatinine [Mass/Vol] 0.66 mg/dL Low 0.70-1.20 [facility] Comment on above: Performed By: #### L 500.2500, L501.2300, L501.5200, L100.0100 ####[facility] [address] [place], [address] ECRCL 70.14 ml/min Normal 50-250 [facility] Comment on above: Performed By: #### L 500.2500, L501.2300, L501.5200, L100.0100 ####[facility] [address] [place], [address] GAP 7 Normal 5-15 [facility] Comment on above: Performed By: #### L 500.2500, L501.2300, L501.5200, L100.0100 ####[facility] [address] [place], [address] GFR/1.73 sq M.predicted among non-blacks MDRD (S/P/Bld) [Vol rate/Area] 92 mL/min/{1.73_m2} Normal >60 [facility] Comment on above: Result Comment: mL/m in/1.73m2 CKD-EPI Creatinine Equation (2020) Performed By: #### L 500.2500, L501.2300, L501.5200, L100.0100 ####[facility] [address] [place], [address] Glucose [Mass/Vol] 201 mg/dL High 70-99 [facility] Comment on above: Performed By: #### L 500.2500, L501.2300, L501.5200, L100.0100 ####[facility] [address] [place], [address] Potassium [Moles/Vol] 3.6 mmol/L Normal 3.3-5.1 [facility] Comment on above: Performed By: #### L 500.2500, L501.2300, L501.5200, L100.0100 ####[facility] [address] [place], [address] Sodium [Moles/Vol] 140 mmol/L Normal 133-145 [facility] Comment on above: Performed By: #### L 500.2500, L501.2300, L501.5200, L100.0100 ####[facility] [address] [place], [address] Urea nitrogen [Mass/Vol] 9 mg/dL Normal 4-19 [facility] Comment on above: Performed By: #### L 500.2500, L501.2300, L501.5200, L100.0100 ####[facility] [address] [place], [address] Bedside Glucoseon 12-29-2024 FINGERSTICK GLU 206 mg/dL High 74-106 [facility] Comment on above: Result Comment: NATALIIA GEMENT OF PATIENT CARE PER NURSING PROTOCOL Performed By: #### L 501.080 ####[facility] [address] [place], [address] FINGERSTICK GLU 195 mg/dL High 74-106 [facility] Comment on above: Result Comment: NATALIIA GEMENT OF PATIENT CARE PER NURSING PROTOCOL Performed By: #### L 501.080 ####[facility] [address] [place], [address] FINGERSTICK GLU 204 mg/dL High 74-106 [facility] Comment on above: Result Comment: NATALIIA GEMENT OF PATIENT CARE PER NURSING PROTOCOL Performed By: #### L 501.080 ####[facility] [address] [place], [address] FINGERSTICK GLU 252 mg/dL High 74-106 [facility] Comment on above: Result Comment: NATALIIA GEMENT OF PATIENT CARE PER NURSING PROTOCOL Performed By: #### L 501.080 ####[facility] [address] [place], [address] CBC W/Diff, Automatedon 10- Absolute Lymph 2.15 X10 3/uL Normal 0.83-4.51 [facility] Comment on above: Performed By: #### L 500.2500, L501.2300, L501.5200, L100.0100 ####[facility] [address] [place], [address] Absolute Neut 5.1 X10 3/uL Normal 2.0-7.7 [facility] Comment on above: Performed By: #### L 500.2500, L501.2300, L501.5200, L100.0100 ####[facility] [address] [place], [address] Basophils/100 WBC (Bld) 0.6 % Normal 0-1 [facility] Comment on above: Performed By: #### L 500.2500, L501.2300, L501.5200, L100.0100 ####[facility] [address] [place], [address] Eosinophils/100 WBC (Bld) 6.0 % High 0-5 [facility] Comment on above: Performed By: #### L 500.2500, L501.2300, L501.5200, L100.0100 ####[facility] [address] [place], [address] Erythrocyte distribution width (RBC) [Ratio] 16.6 % High 11.6-14.6 [facility] Comment on above: Performed By: #### L 500.2500, L501.2300, L501.5200, L100.0100 ####[facility] [address] [place], [address] Hematocrit (Bld) [Volume fraction] 23.0 % Low 37-47 [facility] Comment on above: Performed By: #### L 500.2500, L501.2300, L501.5200, L100.0100 ####[facility] [address] [place], [address] Hemoglobin (Bld) [Mass/Vol] 7.3 g/dL Low 12.0-15. 0 [facility] Comment on above: Performed By: #### L 500.2500, L501.2300, L501.5200, L100.0100 ####[facility] [address] [place], [address] IG% 0.400 Normal 0.0-0.9 [facility] Comment on above: Result Comment: IG% - Immature Granulocytes (promyelocytes, myelocytes andmetamyelocytes) > 1% indicates that a LEFT SHIFT is Present. Performed By: #### L 500.2500, L501.2300, L501.5200, L100.0100 ####[facility] [address] [place], [address] Lymphocytes/100 WBC (Bld) 24.2 % Normal 19-41 [facility] Comment on above: Performed By: #### L 500.2500, L501.2300, L501.5200, L100.0100 ####[facility] [address] [place], [address] MCH (RBC) [Entitic mass] 30.7 pg Normal 27.0-32.0 [facility] Comment on above: Performed By: #### L 500.2500, L501.2300, L501.5200, L100.0100 ####[facility] [address] [place], [address] MCHC (RBC) [Mass/Vol] 31.7 g/dL Low 32-36 [facility] Comment on above: Performed By: #### L 500.2500, L501.2300, L501.5200, L100.0100 ####[facility] [address] [place], [address] MCV (RBC) [Entitic vol] 96.6 fL Normal 81-99 [facility] Comment on above: Performed By: #### L 500.2500, L501.2300, L501.5200, L100.0100 ####[facility] [address] [place], [address] Monocytes/100 WBC (Bld) 11.1 % High 0-10 [facility] Comment on above: Performed By: #### L 500.2500, L501.2300, L501.5200, L100.0100 ####[facility] [address] [place], [address] Neutrophils/100 WBC (Bld) 57.7 % Normal 47-70 [facility] Comment on above: Performed By: #### L 500.2500, L501.2300, L501.5200, L100.0100 ####[facility] [address] [place], [address] Nucleated RBC (Bld) [#/Vol] 0 10*3/uL Normal 0-5 [facility] Comment on above: Performed By: #### L 500.2500, L501.2300, L501.5200, L100.0100 ####[facility] [address] [place], [address] Platelet mean volume (Bld) [Entitic vol] 10.1 fL Normal 6.2-12.0 [facility] Comment on above: Performed By: #### L 500.2500, L501.2300, L501.5200, L100.0100 ####[facility] [address] [place], [address] Platelets (Bld) [#/Vol] 237 10*3/uL Normal 150-450 [facility] Comment on above: Performed By: #### L 500.2500, L501.2300, L501.5200, L100.0100 ####[facility] [address] [place], [address] RBC (Bld) [#/Vol] 2.38 10*6/uL Low 4.2-5.4 [facility] Comment on above: Performed By: #### L 500.2500, L501.2300, L501.5200, L100.0100 ####[facility] [address] [place], [address] RDW SD 55.6 fl High 35.1-43.9 [facility] Comment on above: Performed By: #### L 500.2500, L501.2300, L501.5200, L100.0100 ####[facility] [address] [place], [address] WBC (Bld) [#/Vol] 8.9 10*3/uL Normal 4.4-11.0 [facility] Comment on above: Performed By: #### L 500.2500, L501.2300, L501.5200, L100.0100 ####[facility] [address] [place], [address] Electrocardiogram reportOrde red By: Julian Paul on 12-29-2024 EKG study [facility] Work Phone: EKG study [facility] Work Phone: HH, Hemoglobin AND Hematocri ton 12-29-2024 Hematocrit (Bld) [Volume fraction] 24.4 % Low 37-47 [facility] Comment on above: Performed By: #### L 100.0600 ####[facility] [address] [place], [address] Hemoglobin (Bld) [Mass/Vol] 7.7 g/dL Low 12.0-15. 0 [facility] Comment on above: Performed By: #### L 100.0600 ####[facility] [address] [place], [address] Magnesiumon 12-29-2024 Magnesium [Mass/Vol] 2.1 mg/dL Normal 1.5-2.2 [facility] Comment on above: Performed By: #### L 500.2500, L501.2300, L501.5200, L100.0100 ####[facility] [address] [place], [address] Magnesium measurement (mass/ volume)Ordered By: Keshav Elizondo on 12-29-2024 Magnesium (Unsp spec) [Mass/Vol] 2.1 mg/dL 1.5-2.2 [facility] Phosphoruson 12-29-2024 Phosphate [Mass/Vol] 3.1 mg/dL Normal 2.7-4.5 [facility] Comment on above: Performed By: #### L 500.2500, L501.2300, L501.5200, L100.0100 ####[facility] [address] [place], [address] 12 Lead EKGon 12-28-2024 12 Lead EKG Normal [facility] Activated partial thrombopla stin time (aPTT) in platelet poor plasma by coagulation aOrdered By: Ang Josue on 12-28-2024 aPTT Coag (PPP) [Time] 23.3 s Low 24.1-36.2 [facility] Bedside Glucoseon 12-28-2024 FINGERSTICK GLU 166 mg/dL High 74-106 [facility] Comment on above: Result Comment: NATALIIA GEMENT OF PATIENT CARE PER NURSING PROTOCOL Performed By: #### L 501.080 ####[facility] [address] [place], [address] FINGERSTICK GLU 189 mg/dL High 74-106 [facility] Comment on above: Result Comment: NATALIIA GEMENT OF PATIENT CARE PER NURSING PROTOCOL Performed By: #### L 501.080 ####[facility] [address] [place], [address] FINGERSTICK GLU 186 mg/dL High -106 [facility] Comment on above: Result Comment: NATALIIA GEMENT OF PATIENT CARE PER NURSING PROTOCOL Performed By: #### L 501.080 ####[facility] [address] [place], [address] FINGERSTICK GLU 177 mg/dL High 74-106 [facility] Comment on above: Result Comment: NATALIIA HERNANDEZ OF PATIENT CARE PER NURSING PROTOCOL Performed By: #### L 501.080 ####[facility] [address] [place], [address] Bilirubin, totalOrdered By: Shelia Campos on 12-28-2024 Bilirubin [Mass/Vol] 0.33 mg/dL 0.00-1.30 [facility] CBC W/Diff, Automatedon 12-15 Absolute Lymph 2.70 X10 3/uL Normal 0.83-4.51 [facility] Comment on above: Performed By: #### L 501.2300, L501.5200, L500.4050, L100.0100, L501.9520 ####[facility] [address] [place], [address] Absolute Neut 5.2 X10 3/uL Normal 2.0-7.7 [facility] Comment on above: Performed By: #### L 501.2300, L501.5200, L500.4050, L100.0100, L501.9520 ####[facility] [address] [place], [address] Basophils/100 WBC (Bld) 0.6 % Normal 0-1 [facility] Comment on above: Performed By: #### L 501.2300, L501.5200, L500.4050, L100.0100, L501.9520 ####[facility] [address] [place], [address] Eosinophils/100 WBC (Bld) 7.2 % High 0-5 [facility] Comment on above: Performed By: #### L 501.2300, L501.5200, L500.4050, L100.0100, L501.9520 ####[facility] [address] [place], [address] Erythrocyte distribution width (RBC) [Ratio] 16.3 % High 11.6-14.6 [facility] Comment on above: Performed By: #### L 501.2300, L501.5200, L500.4050, L100.0100, L501.9520 ####[facility] [address] [place], [address] Hematocrit (Bld) [Volume fraction] 21.2 % Low 37-47 [facility] Comment on above: Performed By: #### L 501.2300, L501.5200, L500.4050, L100.0100, L501.9520 ####[facility] [address] [place], [address] Hemoglobin (Bld) [Mass/Vol] 7.2 g/dL Low 12.0-15. 0 [facility] Comment on above: Performed By: #### L 501.2300, L501.5200, L500.4050, L100.0100, L501.9520 ####[facility] [address] [place], [address] IG% 0.400 Normal 0.0-0.9 [facility] Comment on above: Result Comment: IG% - Immature Granulocytes (promyelocytes, myelocytes andmetamyelocytes) > 1% indicates that a LEFT SHIFT is Present. Performed By: #### L 501.2300, L501.5200, L500.4050, L100.0100, [id number] ####[facility] [address] [place], [address] Lymphocytes/100 WBC (Bld) 28.6 % Normal 19-41 [facility] Comment on above: Performed By: #### L 501.2300, L501.5200, L500.4050, L100.0100, [id number] ####[facility] [address] [place], [address] MCH (RBC) [Entitic mass] 31.6 pg Normal 27.0-32.0 [facility] Comment on above: Performed By: #### L 501.2300, L501.5200, L500.4050, L100.0100, [id number] ####[facility] [address] [place], [address] MCHC (RBC) [Mass/Vol] 34.0 g/dL Normal 32-36 [facility] Comment on above: Performed By: #### L 501.2300, L501.5200, L500.4050, L100.0100, L501.9520 ####[facility] [address] [place], [address] MCV (RBC) [Entitic vol] 93.0 fL Normal 81-99 [facility] Comment on above: Performed By: #### L 501.2300, L501.5200, L500.4050, L100.0100, L501.9520 ####[facility] [address] [place], [address] Monocytes/100 WBC (Bld) 7.9 % Normal 0-10 [facility] Comment on above: Performed By: #### L 501.2300, L501.5200, L500.4050, L100.0100, L501.9520 ####[facility] [address] [place], [address] Neutrophils/100 WBC (Bld) 55.3 % Normal 47-70 [facility] Comment on above: Performed By: #### L 501.2300, L501.5200, L500.4050, L100.0100, L501.9520 ####[facility] [address] [place], [address] Nucleated RBC (Bld) [#/Vol] 0 10*3/uL Normal 0-5 [facility] Comment on above: Performed By: #### L 501.2300, L501.5200, L500.4050, L100.0100, L501.9520 ####[facility] [address] [place], [address] Platelet mean volume (Bld) [Entitic vol] 9.9 fL Normal 6.2-12.0 [facility] Comment on above: Performed By: #### L 501.2300, L501.5200, L500.4050, L100.0100, L501.9520 ####[facility] [address] [place], [address] Platelets (Bld) [#/Vol] 217 10*3/uL Normal 150-450 [facility] Comment on above: Performed By: #### L 501.2300, L501.5200, L500.4050, L100.0100, L501.9520 ####[facility] [address] [place], [address] RBC (Bld) [#/Vol] 2.28 10*6/uL Low 4.2-5.4 [facility] Comment on above: Performed By: #### L 501.2300, L501.5200, L500.4050, L100.0100, L501.9520 ####[facility] [address] [place], [address] RDW SD 53.9 fl High 35.1-43.9 [facility] Comment on above: Performed By: #### L 501.2300, L501.5200, L500.4050, L100.0100, L501.9520 ####[facility] [address] [place], [address] WBC (Bld) [#/Vol] 9.5 10*3/uL Normal 4.4-11.0 [facility] Comment on above: Performed By: #### L 501.2300, L501.5200, L500.4050, L100.0100, L501.9520 ####[facility] [address] [place], [address] Chest 1 View (Portable)on Chest 1 View (Portable) Normal [facility] Comprehensive Metabolic Prof ilon 12-28-2024 Albumin [Mass/Vol] 2.9 g/dL Low 3.4-4.8 [facility] Comment on above: Performed By: #### L 501.2300, L501.5200, L500.4050, L100.0100, L501.9520 ####[facility] [address] [place], [address] Albumin/Globulin [Mass ratio] 1.4 {ratio} Normal 0.9-2.4 [facility] Comment on above: Performed By: #### L 501.2300, L501.5200, L500.4050, L100.0100, L501.9520 ####[facility] [address] [place], [address] ALK PHOS 46 U/L Normal 35-104 [facility] Comment on above: Performed By: #### L 501.2300, L501.5200, L500.4050, L100.0100, L501.9520 ####[facility] [address] [place], [address] ALT [Catalytic activity/Vol] 15 U/L Normal <=34 [facility] Comment on above: Performed By: #### L 501.2300, L501.5200, L500.4050, L100.0100, L501.9520 ####[facility] [address] [place], [address] AST [Catalytic activity/Vol] 14 U/L Normal <=31 [facility] Comment on above: Performed By: #### L 501.2300, L501.5200, L500.4050, L100.0100, L501.9520 ####[facility] [address] [place], [address] Bilirubin [Mass/Vol] 0.33 mg/dL Normal 0.00-1.30 [facility] Comment on above: Performed By: #### L 501.2300, L501.5200, L500.4050, L100.0100, L501.9520 ####[facility] [address] [place], [address] BUN/CRE 20.1 RATIO High 10-20 [facility] Comment on above: Performed By: #### L 501.2300, L501.5200, L500.4050, L100.0100, L501.9520 ####[facility] [address] [place], [address] Calcium [Mass/Vol] 8.0 mg/dL Normal 7.6-11.0 [facility] Comment on above: Performed By: #### L 501.2300, L501.5200, L500.4050, L100.0100, L501.9520 ####[facility] [address] [place], [address] Chloride [Moles/Vol] 108 mmol/L Normal 98-108 [facility] Comment on above: Performed By: #### L 501.2300, L501.5200, L500.4050, L100.0100, L501.9520 ####[facility] [address] [place], [address] CO2 [Moles/Vol] 24.6 mmol/L Normal 21.0-32.0 [facility] Comment on above: Performed By: #### L 501.2300, L501.5200, L500.4050, L100.0100, L501.9520 ####[facility] [address] [place], [address] Creatinine [Mass/Vol] 0.58 mg/dL Low 0.70-1.20 [facility] Comment on above: Performed By: #### L 501.2300, L501.5200, L500.4050, L100.0100, L501.9520 ####[facility] [address] [place], [address] ECRCL 72.52 ml/min Normal 50-250 [facility] Comment on above: Performed By: #### L 501.2300, L501.5200, L500.4050, L100.0100, L501.9520 ####[facility] [address] [place], [address] GAP 6 Normal 5-15 [facility] Comment on above: Performed By: #### L 501.2300, L501.5200, L500.4050, L100.0100, L501.9520 ####[facility] [address] [place], [address] GFR/1.73 sq M.predicted among non-blacks MDRD (S/P/Bld) [Vol rate/Area] 95 mL/min/{1.73_m2} Normal >60 [facility] Comment on above: Result Comment: mL/m in/1.73m2 CKD-EPI Creatinine Equation (2020) Performed By: #### L 501.2300, L501.5200, L500.4050, L100.0100, L501.9520 ####[facility] [address] [place], [address] Globulin (S) [Mass/Vol] 2.1 g/dL Low 2.2-4.2 [facility] Comment on above: Performed By: #### L 501.2300, L501.5200, L500.4050, L100.0100, L501.9520 ####[facility] [address] [place], [address] Glucose [Mass/Vol] 185 mg/dL High 70-99 [facility] Comment on above: Performed By: #### L 501.2300, L501.5200, L500.4050, L100.0100, L501.9520 ####[facility] [address] [place], [address] Potassium [Moles/Vol] 4.1 mmol/L Normal 3.3-5.1 [facility] Comment on above: Performed By: #### L 501.2300, L501.5200, L500.4050, L100.0100, L501.9520 ####[facility] [address] [place], [address] Sodium [Moles/Vol] 139 mmol/L Normal 133-145 [facility] Comment on above: Performed By: #### L 501.2300, L501.5200, L500.4050, L100.0100, L501.9520 ####[facility] [address] [place], [address] T PROT 5.0 g/dL Low 5.9-8.4 [facility] Comment on above: Performed By: #### L 501.2300, L501.5200, L500.4050, L100.0100, L501.9520 ####[facility] [address] [place], [address] Urea nitrogen [Mass/Vol] 12 mg/dL Normal 4-19 [facility] Comment on above: Performed By: #### L 501.2300, L501.5200, L500.4050, L100.0100, L501.9520 ####[facility] [address] [place], [address] EGD Reporton 12-28-2024 EGD Report Normal [facility] HH, Hemoglobin AND Hematocri ton 12-28-2024 Hematocrit (Bld) [Volume fraction] 25.4 % Low 37-47 [facility] Comment on above: Performed By: #### L 100.0600 ####[facility] [address] [place], [address] Hemoglobin (Bld) [Mass/Vol] 8.3 g/dL Low 12.0-15. 0 [facility] Comment on above: Performed By: #### L 100.0600 ####[facility] [address] [place], [address] HCT Normal 37-47 [facility] Comment on above: Result Comment: OVER LAPPING ORDER-OKAY TO CANCEL PER RN Performed By: #### L 100.0600 ####[facility] [address] [place], [address] HGB Normal 12.0-15.0 [facility] Comment on above: Result Comment: OVER LAPPING ORDER-OKAY TO CANCEL PER RN Performed By: #### L 100.0600 ####[facility] [address] [place], [address] MR/OP.PROVATon 12-28-2024 MR/OP.PROVAT Normal [facility] MR/POSTOP.ANEon 12-28-2024 MR/POSTOP.ANE Normal [facility] MR/HCQIPNMT4ry 12-28-2024 MR/POSTOPAN2 Normal [facility] Magnesiumon 12-28-2024 Magnesium [Mass/Vol] 2.2 mg/dL Normal 1.5-2.2 [facility] Comment on above: Result Comment: AMENDED REPORT 12/28/24 0522 MG previously reported as: 2.1 mg/dL Performed By: #### L 501.2300, L501.5200, L500.4050, L100.0100, L501.9520 ####[facility] [address] [place], [address] No Panel InformationOrdered By: Shelia Campos on 12-28-2024 14 U/L <32 [facility] Partial Thromboplast Timeon 12-28-2024 aPTT Coag (Bld) [Time] 23.3 s Low 24.1-36.2 [facility] Comment on above: Performed By: #### L 300.3900, L300.4310 ####[facility] [address] [place], [address] Phosphoruson 12-28-2024 Phosphate [Mass/Vol] 2.9 mg/dL Normal 2.7-4.5 [facility] Comment on above: Result Comment: AMENDED REPORT 12/28/24 0522 PHOS previously reported as: 2.8 mg/dL Performed By: #### L 501.2300, L501.5200, L500.4050, L100.0100, L501.9520 ####[facility] [address] [place], [address] Prothrombin Time w/INRon INR Coag (PPP) [Relative time] 1.1 {INR} Normal [facility] Comment on above: Performed By: #### L 300.3900, L300.4310 ####[facility] [address] [place], [address] PT Coag (PPP) [Time] 14.5 s Normal 11.7-14.9 [facility] Comment on above: Performed By: #### L 300.3900, L300.4310 ####[facility] [address] [place], [address] Prothrombin timeOrdered By: Ang Josue on 12-28-2024 PT Coag (PPP) [Time] 14.5 s 11.7-14.9 [facility] Serum globulin measurementOr dered By: Shelia Campos on 12-28-2024 Globulin (S) [Mass/Vol] 2.1 g/dL Low 2.2-4.2 [facility] Serum or plasma alanine martinez otransferase (ALT) measurementOrdered By: Shelia Campos on 12-28-2024 ALT [Catalytic activity/Vol] 15 U/L <35 [facility] Serum or plasma albumin jojo urement (mass/volume)Ordered By: Shelia Campos on 12-28-2024 Albumin [Mass/Vol] 2.9 g/dL Low 3.4-4.8 [facility] Serum or plasma albumin/glob ulin mass ratioOrdered By: Shelia Campos on 12-28-2024 Albumin/Globulin [Mass ratio] 1.4 {ratio} 0.9-2.4 [facility] Serum or plasma alkaline kamila sphatase measurementOrdered By: Shelia Campos on 12-28-2024 ALP [Catalytic activity/Vol] 46 U/L 35-104 [facility] Surgery Specimen Level Lily 12-28-2024 Surgery Specimen Level IV Normal [facility] Comment on above: Performed By: #### P SUIV ####[facility] [address] [place], [place], [id number] TSH DL <= 0.005 mIU/L QnOrde red By: Ang Josue on 12-28-2024 TSH Qn 6.330 uIU/mL High 0.300-4.200 [facility] Thyroid Stim Hormone (TSH)on 12-28-2024 TSH 6.330 uIU/mL High 0.300-4.200 [facility] Comment on above: Result Comment: AMENDED REPORT 12/28/24 0522 TSH previously reported as: 6.340 H uIU/mL Performed By: #### L 501.2300, L501.5200, L500.4050, L100.0100, L501.9520 ####[facility] [address] [place], [place], [address] Total proteinOrdered By: Eusebia Campos on 12-28-2024 Protein [Mass/Vol] 5.0 g/dL Low 5.9-8.4 [facility] Abdomen/Pelvis W IV Cont ONL Yon 12-27-2024 Abdomen/Pelvis W IV Cont ONLY Normal [facility] BRCon 12-27-2024 RC Normal [facility] Comment on above: Result Comment: [id number] AP RC TRANSFUSED 12/27/24 1258 Performed By: #### L 300.4310, L300.3900, BRC, BTS ####[facility] [address] [place], [address] Bedside Glucoseon 12-27-2024 FINGERSTICK GLU 190 mg/dL High 74-106 [facility] Comment on above: Result Comment: NATALIIA HERNANDEZ OF PATIENT CARE PER NURSING PROTOCOL Performed By: #### L 501.080 ####[facility] [address] [place], [address] Bilirubin Test strip Ql (U)O rdered By: Shashi Veronica on 12-27-2024 Bilirubin Ql (U) Negative Negative [facility] CBC W/Diff, Automatedon 12-15 Absolute Lymph 2.57 X10 3/uL Normal 0.83-4.51 [facility] Comment on above: Performed By: #### L 100.0100, L501.2450, L500.4050 ####[facility] [address] [place], [address] Absolute Neut 8.1 X10 3/uL High 2.0-7.7 [facility] Comment on above: Performed By: #### L 100.0100, L501.2450, L500.4050 ####[facility] [address] [place], [address] Basophils/100 WBC (Bld) 0.5 % Normal 0-1 [facility] Comment on above: Performed By: #### L 100.0100, L501.2450, L500.4050 ####[facility] [address] [place], [address] Eosinophils/100 WBC (Bld) 3.8 % Normal 0-5 [facility] Comment on above: Performed By: #### L 100.0100, L501.2450, L500.4050 ####[facility] [address] [place], [address] Erythrocyte distribution width (RBC) [Ratio] 14.1 % Normal 11.6-14.6 [facility] Comment on above: Performed By: #### L 100.0100, L501.2450, L500.4050 ####[facility] [address] [place], [address] Hematocrit (Bld) [Volume fraction] 21.2 % Low 37-47 [facility] Comment on above: Performed By: #### L 100.0100, L501.2450, L500.4050 ####[facility] [address] [place], [address] Hemoglobin (Bld) [Mass/Vol] 7.0 g/dL Low 12.0-15. 0 [facility] Comment on above: Performed By: #### L 100.0100, L501.2450, L500.4050 ####[facility] [address] [place], [address] IG% 0.600 Normal 0.0-0.9 [facility] Comment on above: Result Comment: IG% - Immature Granulocytes (promyelocytes, myelocytes andmetamyelocytes) > 1% indicates that a LEFT SHIFT is Present. Performed By: #### L 100.0100, L501.2450, L500.4050 ####[facility] [address] [place], [address] Lymphocytes/100 WBC (Bld) 21.4 % Normal 19-41 [facility] Comment on above: Performed By: #### L 100.0100, L501.2450, L500.4050 ####[facility] [address] [place], [address] MCH (RBC) [Entitic mass] 31.8 pg Normal 27.0-32.0 [facility] Comment on above: Performed By: #### L 100.0100, L501.2450, L500.4050 ####[facility] [address] [place], [address] MCHC (RBC) [Mass/Vol] 33.0 g/dL Normal 32-36 [facility] Comment on above: Performed By: #### L 100.0100, L501.2450, L500.4050 ####[facility] [address] [place], [address] MCV (RBC) [Entitic vol] 96.4 fL Normal 81-99 [facility] Comment on above: Performed By: #### L 100.0100, L501.2450, L500.4050 ####[facility] [address] [place], [address] Monocytes/100 WBC (Bld) 6.4 % Normal 0-10 [facility] Comment on above: Performed By: #### L 100.0100, L501.2450, L500.4050 ####[facility] [address] [place], [address] Neutrophils/100 WBC (Bld) 67.3 % Normal 47-70 [facility] Comment on above: Performed By: #### L 100.0100, L501.2450, L500.4050 ####[facility] [address] [place], [address] Nucleated RBC (Bld) [#/Vol] 0.2 10*3/uL Normal 0-5 [facility] Comment on above: Performed By: #### L 100.0100, L501.2450, L500.4050 ####[facility] [address] [place], [address] Platelet mean volume (Bld) [Entitic vol] 10.2 fL Normal 6.2-12.0 [facility] Comment on above: Performed By: #### L 100.0100, L501.2450, L500.4050 ####[facility] [address] [place], [address] Platelets (Bld) [#/Vol] 251 10*3/uL Normal 150-450 [facility] Comment on above: Performed By: #### L 100.0100, L501.2450, L500.4050 ####[facility] [address] [place], [address] RBC (Bld) [#/Vol] 2.20 10*6/uL Low 4.2-5.4 [facility] Comment on above: Performed By: #### L 100.0100, L501.2450, L500.4050 ####[facility] [address] [place], [address] RDW SD 47.8 fl High 35.1-43.9 [facility] Comment on above: Performed By: #### L 100.0100, L501.2450, L500.4050 ####[facility] [address] [place], [address] WBC (Bld) [#/Vol] 12.0 10*3/uL High 4.4-11.0 [facility] Comment on above: Performed By: #### L 100.0100, L501.2450, L500.4050 ####[facility] [address] [place], [address] Comprehensive Metabolic Prof [facility] 12-27-2024 Albumin [Mass/Vol] 3.4 g/dL Normal 3.4-4.8 [facility] Comment on above: Performed By: #### L 100.0100, L501.2450, L500.4050 ####[facility] [address] [place], [address] Albumin/Globulin [Mass ratio] 1.5 {ratio} Normal 0.9-2.4 [facility] Comment on above: Performed By: #### L 100.0100, L501.2450, L500.4050 ####[facility] [address] [place], [address] ALK PHOS 52 U/L Normal 35-104 [facility] Comment on above: Performed By: #### L 100.0100, L501.2450, L500.4050 ####[facility] [address] [place], [address] ALT [Catalytic activity/Vol] 20 U/L Normal <=34 [facility] Comment on above: Performed By: #### L 100.0100, L501.2450, L500.4050 ####[facility] [address] [place], [address] AST [Catalytic activity/Vol] 18 U/L Normal <=31 [facility] Comment on above: Performed By: #### L 100.0100, L501.2450, L500.4050 ####[facility] [address] [place], [address] Bilirubin [Mass/Vol] 0.23 mg/dL Normal 0.00-1.30 [facility] Comment on above: Performed By: #### L 100.0100, L501.2450, L500.4050 ####[facility] [address] [place], [address] BUN/CRE 34.2 RATIO High 10-20 [facility] Comment on above: Performed By: #### L 100.0100, L501.2450, L500.4050 ####[facility] [address] [place], [address] Calcium [Mass/Vol] 8.5 mg/dL Normal 7.6-11.0 [facility] Comment on above: Performed By: #### L 100.0100, L501.2450, L500.4050 ####[facility] [address] [place], [address] Chloride [Moles/Vol] 103 mmol/L Normal 98-108 [facility] Comment on above: Performed By: #### L 100.0100, L501.2450, L500.4050 ####[facility] [address] [place], [address] CO2 [Moles/Vol] 23.0 mmol/L Normal 21.0-32.0 [facility] Comment on above: Performed By: #### L 100.0100, L501.2450, L500.4050 ####[facility] [address] [place], [address] Creatinine [Mass/Vol] 0.68 mg/dL Low 0.70-1.20 [facility] Comment on above: Performed By: #### L 100.0100, L501.2450, L500.4050 ####[facility] [address] [place], [address] ECRCL 71.20 ml/min Normal 50-250 [facility] Comment on above: Performed By: #### L 100.0100, L501.2450, L500.4050 ####[facility] [address] [place], [address] GAP 10 Normal 5-15 [facility] Comment on above: Performed By: #### L 100.0100, L501.2450, L500.4050 ####[facility] [address] [place], [address] GFR/1.73 sq M.predicted among non-blacks MDRD (S/P/Bld) [Vol rate/Area] 91 mL/min/{1.73_m2} Normal >60 [facility] Comment on above: Result Comment: mL/m in/1.73m2 CKD-EPI Creatinine Equation (2020) Performed By: #### L 100.0100, L501.2450, L500.4050 ####[facility] [address] [place], [address] Globulin (S) [Mass/Vol] 2.2 g/dL Normal 2.2-4.2 [facility] Comment on above: Performed By: #### L 100.0100, L501.2450, L500.4050 ####[facility] [address] [place], [address] Glucose [Mass/Vol] 378 mg/dL High 70-99 [facility] Comment on above: Performed By: #### L 100.0100, L501.2450, L500.4050 ####[facility] [address] [place], [address] Potassium [Moles/Vol] 3.8 mmol/L Normal 3.3-5.1 [facility] Comment on above: Performed By: #### L 100.0100, L501.2450, L500.4050 ####[facility] [address] [place], [address] Sodium [Moles/Vol] 135 mmol/L Normal 133-145 [facility] Comment on above: Performed By: #### L 100.0100, L501.2450, L500.4050 ####[facility] [address] [place], [address] T PROT 5.6 g/dL Low 5.9-8.4 [facility] Comment on above: Performed By: #### L 100.0100, L501.2450, L500.4050 ####[facility] [address] [place], [address] Urea nitrogen [Mass/Vol] 23 mg/dL High 4-19 [facility] Comment on above: Performed By: #### L 100.0100, L501.2450, L500.4050 ####[facility] [address] [place], [address] Emergency Department Summary on 12-27-2024 Emergency Department Summary Normal [facility] H AND P Exam - Hospitaliston 12-27-2024 H&P Exam - Hospitalist Normal [facility] HH, Hemoglobin AND Hematocri ton 12-27-2024 Hematocrit (Bld) [Volume fraction] 24.2 % Low 37-47 [facility] Comment on above: Performed By: #### L 100.0600 ####[facility] [address] [place], [address] Hemoglobin (Bld) [Mass/Vol] 7.9 g/dL Low 12.0-15. 0 [facility] Comment on above: Performed By: #### L 100.0600 ####[facility] [address] [place], [address] Hematocrit (Bld) [Volume fraction] 25.4 % Low 37-47 [facility] Comment on above: Performed By: #### L 100.0600 ####[facility] [address] [place], [address] Hemoglobin (Bld) [Mass/Vol] 8.2 g/dL Low 12.0-15. 0 [facility] Comment on above: Performed By: #### L 100.0600 ####[facility] [address] [place], [address] Hemoglobin A1con 12-27-2024 HbA1c (Bld) [Mass fraction] 7.8 % High <=5.6 [facility] Comment on above: Result Comment: Norm al < 5.7 % Prediabetic 5.7 - 6.4 % Diabetic >or= 6.5 % Please note range changes. Performed By: #### L 501.0611 ####[facility] [address] [place], [place], [id number] Hemoglobin A1c percentageOrd ered By: Shelia Campos on 12-27-2024 HbA1c (Bld) [Mass fraction] 7.8 % High <5.7 [facility] Ketones Test strip Ql (U)Ord ered By: Shashi Veronica on 12-27-2024 Ketones Ql (U) Negative Negative [facility] Lactic Acidon 12-27-2024 Lactate [Moles/Vol] 2.0 mmol/L Normal 0.0-2.0 [facility] Comment on above: Result Comment: Crit ical Result(s) Called AHAGGARTY at: 1809 by:MERYL??Results read back by same. Performed By: #### L 503.6009 ####[facility] [address] [place], [place], [id number] Lactate [Moles/Vol] 2.6 mmol/L Invalid Interpretation Code 0.0-2.0 [facility] Comment on above: Order Comment: Y Result Comment: Crit ical Result(s) Called at: 1202 12/27/2024 by:JOSE ALBERTO??Results read back by same. Performed By: #### L 503.6000, M100.7900 ####[facility] [address] [place], [place], [address] Lipaseon 12-27-2024 Lipase [Catalytic activity/Vol] 25 U/L Normal 13-75 [facility] Comment on above: Result Comment: Lisy bender note:LIPASE revised reference range effective 22.New Lipase methodology. Expected to produce lower valuesthan the previous assay method.NEW Reference Range: 13 - 75 U/L Performed By: #### L 100.0100, L501.2450, L500.4050 ####[facility] [address] [place], [place], [id number] MR/CON.PCM.GIon 12-27-2024 MR/CON.PCM.GI Normal [facility] Mucus LM Ql (Urine sed)Order ed By: Shashi Veronica on 12-27-2024 Mucus Ql (Urine sed) RARE /hpf [facility] Nitrite Test strip Ql (U)Ord ered By: Shashi Veronica on 12-27-2024 Nitrite Ql (U) Negative Negative [facility] Partial Thromboplast Timeon 12-27-2024 aPTT Coag (Bld) [Time] 22.6 s Low 24.1-36.2 [facility] Comment on above: Performed By: #### L 300.4310, L300.3900, [facility], BTS ####[facility] [address] [place], [address] Protein Test strip Ql (U)Ord ered By: Shashi Veronica on 12-27-2024 Protein Ql (U) 15 mg/dl High Negative [facility] Prothrombin Time w/INRon INR Coag (PPP) [Relative time] 1.0 {INR} Normal [facility] Comment on above: Performed By: #### L 300.4310, L300.3900, [facility], BTS ####[facility] [address] [place], [address] PT Coag (PPP) [Time] 13.6 s Normal 11.7-14.9 [facility] Comment on above: Performed By: #### L 300.4310, L300.3900, [facility], BTS ####[facility] [address] [place], [address] Squamous epithelial cells de tection in urine sediment by light microscopyOrdered By: Shashi Veronica on 12-27-2024 Epithelial cells.squamous LM Ql (Urine sed) 5-10 SEEN /hpf 5-10 [facility] Stool Occult Blood iFOBon STOB Positive Normal [facility] Comment on above: Performed By: #### L 503.6005, M100.7900 ####[facility] [address] [place], [address] Stool gastrointestinal hemog lobin detection by immunologic methodOrdered By: Shashi Veronica on 12-27-2024 Lower GI hemoglobin IA Ql (Stl) Positive Abnormal [facility] Lower GI hemoglobin IA Ql (Stl) Positive Abnormal [facility] Type AND Screenon 12-27-2024 ABO and Rh group Nom (Bld) Blood group A Rh(D) positive Normal [facility] Comment on above: Order Comment: CMV N EG? NNumber of units to transfuse: 1Reason for Ordering Blood: AcuteAre the blood/blood products to be transfused? YIs the patient having/had surgery? NSNY Performed By: #### L 300.4310, L300.3900, [facility], BTS ####[facility] [address] [place], [address] Urinalysis, Completeon 12-27 BACTERIA 1+ /hpf Normal None Seen [facility] Comment on above: Order Comment: MONSE CTOR TO SPECIFY Performed By: #### L 400.0001 ####[facility] [address] [place], [address] EPI,SQUAMOUS 5-10 SEEN Normal 5-10 [facility] Comment on above: Order Comment: MONSE CTOR TO SPECIFY Performed By: #### L 400.0001 ####[facility] [address] [place], [address] Mucus Ql (Urine sed) RARE Normal [facility] Comment on above: Order Comment: MONSE CTOR TO SPECIFY Performed By: #### L 400.0001 ####[facility] [address] [place], [address] RBC 0-5 SEEN Normal 0-5 [facility] Comment on above: Order Comment: COLLE CTOR TO SPECIFY Performed By: #### L 400.0001 ####[facility] [address] [place], [place], [address] WBC 5-10 SEEN Normal 0-5 [facility] Comment on above: Order Comment: COLLE CTOR TO SPECIFY Performed By: #### L 400.0001 ####[facility] [address] [place], [address] Urine clarityOrdered By: Caleb Veronica on 12-27-2024 Clarity (U) Sl. Cloudy Clear [facility] Urine color determinationOrd ered By: Shashi Vreonica on 12-27-2024 Color (U) Yellow Yellow [facility] Urine cultureOrdered By: Caleb Veronica on 12-27-2024 Bacteria identified Cx Nom (U) Aerococcus urinae Abnormal [facility] Bacteria identified Cx Nom (U) Mixed Gram Pos & Gram Neg Org Abnormal [facility] Bacteria identified Cx Nom (U) Aerococcus urinae Abnormal [facility] Bacteria identified Cx Nom (U) Mixed Gram Pos & Gram Neg Org Abnormal [facility] Urine glucose detectionOrder ed By: Shashi Veronica on 12-27-2024 Glucose Ql (U) 1000 mg/dl High Normal [facility] Urine leukocyte esterase det ection by dipstickOrdered By: Shashi Veronica on 12-27-2024 Leukocyte esterase Test strip Ql (U) 100 /ul High Negative [facility] Urine pHOrdered By: Shashi Addison on 12-27-2024 pH (U) 6.0 [pH] 5.0 - 8.0 [facility] Urine sediment bacteria coun t by microscopy (number/high power field)Ordered By: Shashi Veronica on 12-27-2024 Bacteria LM.HPF (Urine sed) [#/Area] 1 /[HPF] None Seen [facility] Urine specific gravity measu rementOrdered By: Shashi Veronica on 12-27-2024 Specific gravity (U) [Rel density] 1.020 1.002-1.030 [facility] Urine urobilinogen measureme ntOrdered By: Shashi Veronica on 10-13-2025 Urobilinogen Ql (U) Normal mg/dl Normal [facility] White blood cell countOrdere d By: Shashi EdouardGilmargett on 12-27-2024 White blood cell count 5-10 SEEN /hpf 0-5 [facility] Gastroenterology Visit Repor ton 12-17-2024 Gastroenterology Visit Report Normal [facility] Urine Cultureon 12-08-2024 URC Normal [facility] Comment on above: Performed By: #### M 100.2200 ####[facility] [address] [place], [address] CNPBanner 12-07-2024 [facility] Telephone (INTMWS) KESHIA ROJAS ([id number]) 1950 F Date Time Provider Department 12/07/24 PAULO SCOTT INTWS During your visit today, we recorded the following information about you: Nicole Herrera LPN 12/07/2024 11:18 AM Signed Patient calling was in the office yesterday and did not get the letter for her employer from Dr Scott wrote for her. Patient would like called please to peanut picker. Patient asking about what was written on piece of paper by PCP, (Methylated Folate 15 mg ) asking if that is what she wanted her to get? Patient having problems reading it. Please advise Nicole Herrera LPN 12/07/2024 4:07 PM Signed Patient calling back now wants to go back to work tomorrow. Asking if she could show up at 5 pm and peanut picker the letter. Advised patient that she would [...] give patient a call when she can peanut picker the letter in medical records. Can leave patient voice mail on [phone]. ROCÍO GomezAma kamBELEN 12/08/2024 11:35 AM Signed This is to medical records for peanut picker. Pt notified. Allergies As of Date: 12/07/2024 [...] mandibular pain, lymphadenopathy, possible angio edema per [facility] ER note 04/24/2022 MECLIZINE 03/07/2006 7 [...] Reason for Visit: Letter [264] Patient Question [1420] Prescriptions as of 12/08/2024 - Magnesium Glycinate [...] daily. - (more content not included)... Normal [facility] CNOVon 12-06-2024 CNOV Office Visit (INTMWS ) KESHIA ROJAS ([id number]) 1950 F Date Time Provider Department 12/06/24 [...] diabetic shoes and follows up with a commissioned sales associate for nail care. 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 Charlton) Cataracts, both eyes Coronary atherosclerosis of unspecified type of vessel, tanacross or graft minimal plaque on cath 08/06/2006 Diet-controlled diabetes mellitus ([facility]) 09/24/2024 DVT (deep venous thrombosis) ([facility]) 2010 Right leg OCTOBER 2009 NOT TREATED Dysmetabolic syndrome X Esophageal reflux Fibromyalgia better with Lyrica Floppy eyelid syndrome Hiatal hernia Large when seen on EGD 10/2010 at [facility] (Dr. Chavarria) Irritable bowel syndrome Obesity [...] insuffiency 459.81 (more content not included)... Normal [facility] 12 Lead EKGon 12-05-2024 12 Lead EKG Normal [facility] Absolute lymphocyte countOrd ered By: Shanika Galicia on 12-05-2024 Lymphocytes Auto (Unsp spec) [#/Vol] 1.71 10*3/uL 0.83-4.51 [facility] Absolute neutrophil countOrd ered By: Shanika Galicia on 12-05-2024 Neutrophils (Bld) [#/Vol] 10.1 10*3/uL High 2.0-7.7 [facility] Anion gap in Serum or Plasma Ordered By: Shanika Galicia on 12-05-2024 Anion gap [Moles/Vol] 15 mmol/L 5-15 [facility] Automated lymphocyte count a s percentage of total leukocytesOrdered By: Shanika Galicia on 12-05-2024 Lymphocytes/100 WBC Auto (Unsp spec) 13.0 % Low 19-41 [facility] BUN/creatinine ratioOrdered By: Shanika Galicia on 12-05-2024 Urea nitrogen/Creatinine [Mass ratio] 17.3 mg/mg 10-20 [facility] Basic Metabolic Profile (BMP )on 12-05-2024 BUN/CRE 17.3 RATIO Normal 10-20 [facility] Comment on above: Performed By: #### L 500.2500, L100.0100, L501.4021 ####[facility] [address] [place], [address] Calcium [Mass/Vol] 9.6 mg/dL Normal 7.6-11.0 [facility] Comment on above: Performed By: #### L 500.2500, L100.0100, L501.4021 ####[facility] [address] [place], [address] Chloride [Moles/Vol] 99 mmol/L Normal 98-108 [facility] Comment on above: Performed By: #### L 500.2500, L100.0100, L501.4021 ####[facility] [address] [place], [address] CO2 [Moles/Vol] 21.8 mmol/L Normal 21.0-32.0 [facility] Comment on above: Performed By: #### L 500.2500, L100.0100, L501.4021 ####[facility] [address] [place], [address] Creatinine [Mass/Vol] 0.89 mg/dL Normal 0.70-1.20 [facility] Comment on above: Performed By: #### L 500.2500, L100.0100, L501.4021 ####[facility] [address] [place], [address] ECRCL 62.56 ml/min Normal 50-250 [facility] Comment on above: Performed By: #### L 500.2500, L100.0100, L501.4021 ####[facility] [address] [place], [address] GAP 15 Normal 5-15 [facility] Comment on above: Performed By: #### L 500.2500, L100.0100, L501.4021 ####[facility] [address] [place], [address] GFR/1.73 sq M.predicted among non-blacks MDRD (S/P/Bld) [Vol rate/Area] 68 mL/min/{1.73_m2} Normal >60 [facility] Comment on above: Result Comment: mL/m in/1.73m2 CKD-EPI Creatinine Equation (2020) Performed By: #### L 500.2500, L100.0100, L501.4021 ####[facility] [address] [place], [address] Glucose [Mass/Vol] 258 mg/dL High 70-99 [facility] Comment on above: Performed By: #### L 500.2500, L100.0100, L501.4021 ####[facility] [address] [place], [address] Potassium [Moles/Vol] 4.3 mmol/L Normal 3.3-5.1 [facility] Comment on above: Result Comment: Hemo lysis present, Results??could be affected.?? Performed By: #### L 500.2500, L100.0100, L501.4021 ####[facility] [address] [place], [address] Sodium [Moles/Vol] 136 mmol/L Normal 133-145 [facility] Comment on above: Performed By: #### L 500.2500, L100.0100, L501.4021 ####[facility] [address] [place], [address] Urea nitrogen [Mass/Vol] 15 mg/dL Normal 4-19 [facility] Comment on above: Performed By: #### L 500.2500, L100.0100, L501.4021 ####[facility] [address] [place], [address] Basophil percentageOrdered B y: Shanika Galicia on 12-05-2024 Basophils/100 WBC (Bld) 0.8 % 0-1 [facility] Bilirubin Test strip Ql (U)O rdered By: Shanika Galicia on 12-05-2024 Bilirubin Ql (U) Negative Negative [facility] CBC W/Diff, Automatedon 11-16 Absolute Lymph 1.71 X10 3/uL Normal 0.83-4.51 [facility] Comment on above: Performed By: #### L 500.2500, L100.0100, L501.4021 ####[facility] [address] [place], [address] Absolute Neut 10.1 X10 3/uL High 2.0-7.7 [facility] Comment on above: Performed By: #### L 500.2500, L100.0100, L501.4021 ####[facility] [address] [place], [address] Basophils/100 WBC (Bld) 0.8 % Normal 0-1 [facility] Comment on above: Performed By: #### L 500.2500, L100.0100, L501.4021 ####[facility] [address] [place], [address] Eosinophils/100 WBC (Bld) 1.4 % Normal 0-5 [facility] Comment on above: Performed By: #### L 500.2500, L100.0100, L501.4021 ####[facility] [address] [place], [address] Erythrocyte distribution width (RBC) [Ratio] 13.7 % Normal 11.6-14.6 [facility] Comment on above: Performed By: #### L 500.2500, L100.0100, L501.4021 ####[facility] [address] [place], [address] Hematocrit (Bld) [Volume fraction] 43.9 % Normal 37-47 [facility] Comment on above: Performed By: #### L 500.2500, L100.0100, L501.4021 ####[facility] [address] [place], [address] Hemoglobin (Bld) [Mass/Vol] 14.5 g/dL Normal 12.0-15. 0 [facility] Comment on above: Performed By: #### L 500.2500, L100.0100, L501.4021 ####[facility] [address] [place], [address] IG% 0.400 Normal 0.0-0.9 [facility] Comment on above: Result Comment: IG% - Immature Granulocytes (promyelocytes, myelocytes andmetamyelocytes) > 1% indicates that a LEFT SHIFT is Present. Performed By: #### L 500.2500, L100.0100, L501.4021 ####[facility] [address] [place], [address] Lymphocytes/100 WBC (Bld) 13.0 % Low 19-41 [facility] Comment on above: Performed By: #### L 500.2500, L100.0100, L501.4021 ####[facility] [address] [place], [address] MCH (RBC) [Entitic mass] 31.0 pg Normal 27.0-32.0 [facility] Comment on above: Performed By: #### L 500.2500, L100.0100, L501.4021 ####[facility] [address] [place], [address] MCHC (RBC) [Mass/Vol] 33.0 g/dL Normal 32-36 [facility] Comment on above: Performed By: #### L 500.2500, L100.0100, L501.4021 ####[facility] [address] [place], [address] MCV (RBC) [Entitic vol] 94.0 fL Normal 81-99 [facility] Comment on above: Performed By: #### L 500.2500, L100.0100, L501.4021 ####[facility] [address] [place], [address] Monocytes/100 WBC (Bld) 8.0 % Normal 0-10 [facility] Comment on above: Performed By: #### L 500.2500, L100.0100, L501.4021 ####[facility] [address] [place], [address] Neutrophils/100 WBC (Bld) 76.4 % High 47-70 [facility] Comment on above: Performed By: #### L 500.2500, L100.0100, L501.4021 ####[facility] [address] [place], [address] Nucleated RBC (Bld) [#/Vol] 0 10*3/uL Normal 0-5 [facility] Comment on above: Performed By: #### L 500.2500, L100.0100, L501.4021 ####[facility] [address] [place], [address] Platelet mean volume (Bld) [Entitic vol] 10.6 fL Normal 6.2-12.0 [facility] Comment on above: Performed By: #### L 500.2500, L100.0100, L501.4021 ####[facility] [address] [place], [address] Platelets (Bld) [#/Vol] 276 10*3/uL Normal 150-450 [facility] Comment on above: Performed By: #### L 500.2500, L100.0100, L501.4021 ####[facility] [address] [place], [address] RBC (Bld) [#/Vol] 4.67 10*6/uL Normal 4.2-5.4 [facility] Comment on above: Performed By: #### L 500.2500, L100.0100, L501.4021 ####[facility] [address] [place], [address] RDW SD 47.5 fl High 35.1-43.9 [facility] Comment on above: Performed By: #### L 500.2500, L100.0100, L501.4021 ####[facility] [address] [place], [address] WBC (Bld) [#/Vol] 13.2 10*3/uL High 4.4-11.0 [facility] Comment on above: Performed By: #### L 500.2500, L100.0100, L501.4021 ####[facility] [address] [place], [address] Carbon dioxide, total [Moles /volume] in Central venous bloodOrdered By: Shanika Galicia on 12-05-2024 CO2 [Moles/Vol] 21.8 mmol/L 21.0-32.0 [facility] Chest PA and Lateralon 12-05 Chest PA and Lateral Normal [facility] Chloride assayOrdered By: Carlos Galicia on 12-05-2024 Chloride [Moles/Vol] 99 mmol/L 98-108 [facility] Electrocardiogram reportOrde red By: Julian Paul on 12-05-2024 EKG study [facility] Cardiovascular Services [address] [place] [address] 12 Lead EKG 12/05/24 1319 MR#: [id number] Acct: [id number] Name: KESHIA ROJAS Rep #:[id number] : [...] injury pattern Confirmed by BEVERLY VARGAS, JULIAN ([id number]), image editor ASHLEY HOUSE ([id number]) on 12/06/2024 7:57:25 AM Referred By: Confirmed By: JULIAN PAUL MD 12/06/24 0757 Date _ Julian Paul MD CC: Dr. Shanika Galicia MD; Dr. Paulo Scott MD ~ Signed [facility] Other Phone: Emergency Department Summary on 12-05-2024 Emergency Department Summary Normal [facility] Eosinophil percentageOrdered By: Shanika Galicia on 12-05-2024 Eosinophils/100 WBC (Bld) 1.4 % 0-5 [facility] Erythrocyte distribution wid th ratioOrdered By: Shanika Galicia on 12-05-2024 Erythrocyte distribution width (RBC) [Ratio] 13.7 % 11.6-14.6 [facility] Erythrocyte distribution wid th standard deviationOrdered By: Shanika Galicia on 12-05-2024 Erythrocyte distribution width (RBC) [Ratio] 47.5 fl High 35.1-43.9 [facility] Glomerular filtration rate ( GFR) estimation/1.73 sq m using serum, plasma, or whole bOrdered By: Shanika Galicia on 12-05-2024 GFR/1.73 sq M.predicted among non-blacks MDRD (S/P/Bld) [Vol rate/Area] 68 mL/min/{1.73_m2} >60 [facility] Comment on above: mL/min/1.73m2 CKD-EP I Creatinine Equation (2020) Hematocrit Auto (Bld) [Volum e fraction]Ordered By: Shanika Galicia on 12-05-2024 Hematocrit (Bld) [Volume fraction] 43.9 % 37-47 [facility] Hemoglobin measurementOrdere d By: Shanika Galicia on 12-05-2024 Hemoglobin (Bld) [Mass/Vol] 14.5 g/dL 12.0-15. 0 [facility] Immature granulocytes/100 WB C Auto (Bld)Ordered By: Shanika Galicia on 12-05-2024 Immature granulocytes/100 WBC (Bld) 0.400 % 0.0-0.9 [facility] Comment on above: IG% - Immature Granu locytes (promyelocytes, myelocytes and metamyelocytes) > 1% indicates that a LEFT SHIFT is Present. Ketones Test strip Ql (U)Ord ered By: Shanika Galicia on 12-05-2024 Ketones Ql (U) Negative Negative [facility] L501.4021on 12-05-2024 Trop T High Sen 23 ng/L High <=14 [facility] Comment on above: Performed By: #### L 500.2500, L100.0100, L501.4021 ####[facility] [address] [place], [address] MCV (mean corpuscular volume ) determinationOrdered By: Shanika Galicia on 12-05-2024 MCV (RBC) [Entitic vol] 94.0 fL 81-99 [facility] Mean corpuscular hemoglobin (MCH) determinationOrdered By: Shanika Galicia on 12-05-2024 MCH (RBC) [Entitic mass] 31.0 pg 27.0-32.0 [facility] Mean corpuscular hemoglobin concentration (MCHC) determinationOrdered By: Shanika Galicia on 12-05-2024 MCHC (RBC) [Mass/Vol] 33.0 g/dL 32-36 [facility] Mean platelet volume determi nationOrdered By: Shanika Galicia on 12-05-2024 Platelet mean volume (Bld) [Entitic vol] 10.6 fL 6.2-12.0 [facility] Microscopic analysis of urin e for red blood cells (RBC)Ordered By: Shanika Galicia on 12-05-2024 Microscopic analysis of urine for red blood cells (RBC) 0 SEEN /hpf 0-5 [facility] Monocyte percentageOrdered B y: Shanika Galicia on 12-05-2024 Monocytes/100 WBC (Bld) 8.0 % 0-10 [facility] Mucus LM Ql (Urine sed)Order ed By: Shanika Galicia on 12-05-2024 Mucus Ql (Urine sed) 0 SEEN /hpf [facility] Neutrophil percentageOrdered By: Shanika Mortoner on 12-05-2024 Neutrophils/100 WBC (Bld) 76.4 % High 47-70 [facility] Nitrite Test strip Ql (U)Ord ered By: Shanika Mortoner on 12-05-2024 Nitrite Ql (U) Negative Negative [facility] Nucleated red blood cell per centageOrdered By: Shanika Mortoner on 12-05-2024 Nucleated RBC/100 WBC (Bld) [Ratio] 0 % 0-5 [facility] Platelet countOrdered By: Carlos Mortoner on 12-05-2024 Platelets (Bld) [#/Vol] 276 10*3/uL 150-450 [facility] Potassium measurement (mass/ volume)Ordered By: Shanika Mortoner on 12-05-2024 Potassium (Unsp spec) [Mass/Vol] 4.3 mmol/L 3.3-5.1 [facility] Comment on above: Hemolysis present, R esults could be affected. Protein Test strip Ql (U)Ord ered By: Shanika Mortoner on 12-05-2024 Protein Ql (U) Negative Negative [facility] RBC Auto (Bld) [#/Vol]Ordere d By: Shanika Mortoner on 12-05-2024 RBC (Bld) [#/Vol] 4.67 10*6/uL 4.2-5.4 [facility] Serum creatinine measurement (mass/volume)Ordered By: Shanika Mortoner on 12-05-2024 Creatinine [Mass/Vol] 0.89 mg/dL 0.70-1.20 [facility] Serum glucose measurement (m ass/volume)Ordered By: Shanika Frida on 12-05-2024 Glucose [Mass/Vol] 258 mg/dL High 70-99 [facility] Serum or plasma calcium jojo urement (mass/volume)Ordered By: Shanika Galicia on 12-05-2024 Calcium [Mass/Vol] 9.6 mg/dL 7.6-11.0 [facility] Serum or plasma urea nitroge n measurement (mass/volume)Ordered By: Shanika Galicia on 12-05-2024 Urea nitrogen [Mass/Vol] 15 mg/dL 4-19 [facility] Sodium levelOrdered By: Sohail Galicia on 12-05-2024 Sodium [Moles/Vol] 136 mmol/L 133-145 [facility] Squamous epithelial cells de tection in urine sediment by light microscopyOrdered By: Shanika Galicia on 12-05-2024 Epithelial cells.squamous LM Ql (Urine sed) 0-5 SEEN /hpf 5-10 [facility] Troponin T HS 2 HRon 025 Trop T High Sen 17 ng/L High <=14 [facility] Comment on above: Performed By: #### L 499.0042 ####[facility] [address] [facility] [id number] Troponin T.cardiac [Mass/vol ume] in Serum or Plasma by High sensitivity methodOrdered By: Shanika Galicia on 12-05-2024 Troponin T.cardiac High sensitivity method [Mass/Vol] 17 ng/L High <14 [facility] Troponin T.cardiac High sensitivity method [Mass/Vol] 23 ng/L High <14 [facility] Urinalysis, Completeon 12-05 BACTERIA 1+ /hpf Normal None Seen [facility] Comment on above: Order Comment: CLEAN CATCH Performed By: #### L 400.0001 ####[facility] [address] [place], [address] EPI,SQUAMOUS 0-5 SEEN Normal 5-10 [facility] Comment on above: Order Comment: CLEAN CATCH Performed By: #### L 400.0001 ####[facility] [address] [place], [address] WBC 0-5 SEEN Normal 0-5 [facility] Comment on above: Order Comment: CLEAN CATCH Performed By: #### L 400.0001 ####[facility] [address] [place], [address] Mucus Ql (Urine sed) 0 SEEN Normal [facility] Comment on above: Order Comment: CLEAN CATCH Performed By: #### L 400.0001 ####[facility] [address] [place], [address] RBC 0 SEEN Normal 0-5 [facility] Comment on above: Order Comment: CLEAN CATCH Performed By: #### L 400.0001 ####[facility] [address] [place], [place], [address] Urine clarityOrdered By: Morenita Galicia on 12-05-2024 Clarity (U) Clear Clear [facility] Urine color determinationOrd ered By: Shanika Galicia on 12-05-2024 Color (U) Yellow Yellow [facility] Urine cultureOrdered By: Morenita Galicia on 12-05-2024 Bacteria identified Cx Nom (U) Escherichia coli Abnormal [facility] Bacteria identified Cx Nom (U) Escherichia coli Abnormal [facility] Urine glucose detectionOrder ed By: Shanika Galicia on 12-05-2024 Glucose Ql (U) 1000 mg/dl High Normal [facility] Urine leukocyte esterase det ection by dipstickOrdered By: Shanika Galicia on 12-05-2024 Leukocyte esterase Test strip Ql (U) 25 /ul High Negative [facility] Urine pHOrdered By: Shanika torres on 12-05-2024 pH (U) 7.0 [pH] 5.0 - 8.0 [facility] Urine sediment bacteria coun t by microscopy (number/high power field)Ordered By: Shanika Galicia on 12-05-2024 Bacteria LM.HPF (Urine sed) [#/Area] 1 /[HPF] None Seen [facility] Urine specific gravity measu rementOrdered By: Shanika Galicia on 12-05-2024 Specific gravity (U) [Rel density] 1.010 1.002-1.030 [facility] Urine urobilinogen measureme ntOrdered By: Shanika Galicia on 12-05-2024 Urobilinogen Ql (U) Normal mg/dl Normal [facility] White blood cell (WBC) count Ordered By: Shanika Galicia on 12-05-2024 WBC (Bld) [#/Vol] 13.2 10*3/uL High 4.4-11.0 [facility] White blood cell countOrdere d By: Shanika Galicia on 12-05-2024 White blood cell count 0-5 SEEN /hpf 0-5 [facility] Cardiology Visit Reporton Cardiology Visit Report Normal W [facility] 25(OH)D3 SerPl-mCncon 2024 25-hydroxyvitamin D3 [Mass/Vol] 52.7 ng/mL Normal 31.0-80.0 [facility] Comment on above: Order Comment: Speci men Type: BLOOD SPECIMEN Ordering Facility: [facility] Address: [address] [place] [address] Result Comment: Clas sification of 25 [place] Vitamin D status: Deficiency/Insufficiency: < or = 30 ng/ml. Sufficiency/Optimal Levels: 31-80 ng/mL Toxicity: > 100 ng/mL. Test performed by chemiluminescent immunoassay. Performed By: #### 3 016-3, 30238-4, LIPNF #### [facility] CLIA [id number] [address] [place] [address] [place] CBC W Auto Differential pane l (Bld)on 09-24-2024 Basophils (Bld) [#/Vol] 0.07 10*3/uL [facility] Basophils/100 WBC (Bld) 0.6 % [facility] Differential cell count method Nom (Bld) Auto [facility] Eosinophils (Bld) [#/Vol] 0.05 10*3/uL [facility] Eosinophils/100 WBC (Bld) 0.4 % [facility] Erythrocyte distribution width (RBC) [Ratio] 13.4 % 11.5 - 15.0 % [facility] Hematocrit (Bld) [Volume fraction] 43.7 % 36.0 - 46.0 % [facility] Hemoglobin (Bld) [Mass/Vol] 14.4 g/dL 11.5 - 15.5 g/dL [facility] Immature granulocytes (Bld) [#/Vol] 0.05 10*3/[facility] Immature granulocytes/100 WBC (Bld) 0.4 % [facility] Interpretation and review of laboratory results Abnormal [facility] Lymphocytes (Bld) [#/Vol] 1.75 10*3/uL [facility] Lymphocytes/100 WBC (Bld) 14.5 % [facility] MCH (RBC) [Entitic mass] 31.4 pg 26. 0 - 34.[address] [facility] MCHC (RBC) [Mass/Vol] 33 g/dL 30.5 - 36.0 g/dL [facility] MCV (RBC) [Entitic vol] 95.2 fL 80.0 - 100.[address] [facility] Monocytes (Bld) [#/Vol] 0.73 10*3/uL [facility] Monocytes/100 WBC (Bld) 6.1 % [facility] Neutrophils (Bld) [#/Vol] 9.4 10*3/uL High [facility] Neutrophils/100 WBC (Bld) 78 % [facility] Nucleated RBC (Bld) [#/Vol] [facility] Nucleated RBC/100 WBC (Bld) [Ratio] 0 % /[address] [facility] Platelet mean volume (Bld) [Entitic vol] 10.2 fL 9.0 - 12.[address] [facility] Platelets (Bld) [#/Vol] 373 10*3/uL [facility] RBC (Bld) [#/Vol] 4.59 10*6/uL 3.90 - 5.2 0 m/uL [facility] WBC (Bld) [#/Vol] 12.05 10*3/uL High [facility] Basophils (Bld) [#/Vol] 0.07 10*3/uL Normal <0.11 [facility] Comment on above: Order Comment: Speci men Type: BLOOD SPECIMEN Ordering Facility: [facility] Address: [address] [place] [address] Performed By: #### 3 016-3, 16444-5, LIPNF #### [facility] CLIA [id number] [address] [id number] [address] [place] Basophils/100 WBC (Bld) 0.6 % Normal C [facility] Comment on above: Order Comment: Speci men Type: BLOOD SPECIMEN Ordering Facility: [facility] Address: [address] [place] [address] Performed By: #### 3 016-3, 54382-1, LIPNF #### [facility] CLIA [id number] [address] [place] [address] [place] Differential cell count method Nom (Bld) Auto Normal [facility] Comment on above: Order Comment: Speci men Type: BLOOD SPECIMEN Ordering Facility: [facility] Address: [address] [place] [address] Performed By: #### 3 016-3, , LIPNF #### [facility] CLIA [id number] [address] [place] [address] [place] Eosinophils (Bld) [#/Vol] 0.05 10*3/uL Normal <0.46 [facility] Comment on above: Order Comment: Speci men Type: BLOOD SPECIMEN Ordering Facility: [facility] Address: [address] [place] [address] Performed By: #### 3 016-3, , LIPNF #### [facility] CLIA [id number] [address] [place] [address] [place] Eosinophils/100 WBC (Bld) 0.4 % Normal [facility] Comment on above: Order Comment: Speci men Type: BLOOD SPECIMEN Ordering Facility: [facility] Address: [address] [place] [address] Performed By: #### 3 016-3, , LIPNF #### [facility] CLIA [id number] [address] [place] [address] [place] Erythrocyte distribution width (RBC) [Ratio] 13.4 % Normal 11.5-15.0 [facility] Comment on above: Order Comment: Speci men Type: BLOOD SPECIMEN Ordering Facility: [facility] Address: [address] [place] [address] Performed By: #### 3 016-3, 08011-2, LIPNF #### [facility] CLIA [id number] [address] [place] [address] [place] Hematocrit (Bld) [Volume fraction] 43.7 % Normal 36.0-46.0 [facility] Comment on above: Order Comment: Speci men Type: BLOOD SPECIMEN Ordering Facility: [facility] Address: [address] [place] [address] Performed By: #### 3 016-3, 96341-8, LIPNF #### [facility] CLIA [id number] [address] [place] [address] [place] Hemoglobin (Bld) [Mass/Vol] 14.4 g/dL Normal 11.5-15. 5 [facility] Comment on above: Order Comment: Speci men Type: BLOOD SPECIMEN Ordering Facility: [facility] Address: [address] [place] [address] Performed By: #### 3 016-3, 31600-5, LIPNF #### [facility] CLIA [id number] [address] [place] [address] [place] Immature granulocytes (Bld) [#/Vol] 0.05 10*3/uL Normal <0.10 [facility] Comment on above: Order Comment: Speci men Type: BLOOD SPECIMEN Ordering Facility: [facility] Address: [address] [place] [address] Performed By: #### 3 016-3, 51098-5, LIPNF #### [facility] CLIA [id number] [address] [place] [address] [place] Immature granulocytes/100 WBC (Bld) 0.4 % Normal [facility] Comment on above: Order Comment: Speci men Type: BLOOD SPECIMEN Ordering Facility: [facility] Address: [address] [place] [address] Performed By: #### 3 016-3, 30676-0, LIPNF #### [facility] CLIA [id number] [address] [place] [address] [place] Lymphocytes (Bld) [#/Vol] 1.75 10*3/uL Normal 1.00-4.0 0 [facility] Comment on above: Order Comment: Speci men Type: BLOOD SPECIMEN Ordering Facility: [facility] Address: [address] [place] [address] Performed By: #### 3 016-3, 20357-5, LIPNF #### [facility] CLIA [id number] [address] [place] [address] [place] Lymphocytes/100 WBC (Bld) 14.5 % Normal [facility] Comment on above: Order Comment: Speci men Type: BLOOD SPECIMEN Ordering Facility: [facility] Address: [address] [place] [address] Performed By: #### 3 016-3, 60764-5, LIPNF #### [facility] CLIA [id number] [address] [place] [address] [place] MCH (RBC) [Entitic mass] 31.4 pg Normal 26.0-34.0 [facility] Comment on above: Order Comment: Speci men Type: BLOOD SPECIMEN Ordering Facility: [facility] Address: [address] [place] [address] Performed By: #### 3 016-3, , LIPNF #### [facility] CLIA [id number] [address] [place] [address] [place] MCHC (RBC) [Mass/Vol] 33.0 g/dL Normal 30.5-36.0 [facility] Comment on above: Order Comment: Speci men Type: BLOOD SPECIMEN Ordering Facility: [facility] Address: [address] [place] [address] Performed By: #### 3 016-3, 45884-2, LIPNF #### [facility] CLIA [id number] [address] [place] [address] [place] MCV (RBC) [Entitic vol] 95.2 fL Normal 80.0-100.0 C [facility] Comment on above: Order Comment: Speci men Type: BLOOD SPECIMEN Ordering Facility: [facility] Address: [address] [place] [address] Performed By: #### 3 016-3, 72182-4, LIPNF #### [facility] CLIA [id number] [address] [place] [address] [place] Monocytes (Bld) [#/Vol] 0.73 10*3/uL Normal <0.87 [facility] Comment on above: Order Comment: Speci men Type: BLOOD SPECIMEN Ordering Facility: [facility] Address: [address] [place] [address] Performed By: #### 3 016-3, 33777-0, LIPNF #### [facility] CLIA [id number] [address] [place] [address] [place] Monocytes/100 WBC (Bld) 6.1 % Normal C [facility] Comment on above: Order Comment: Speci men Type: BLOOD SPECIMEN Ordering Facility: [facility] Address: [address] [place] [address] Performed By: #### 3 016-3, , LIPNF #### [facility] CLIA [id number] [address] [place] [address] [place] Neutrophils (Bld) [#/Vol] 9.40 10*3/uL High 1.45-7.5 0 [facility] Comment on above: Order Comment: Speci men Type: BLOOD SPECIMEN Ordering Facility: [facility] Address: [address] [place] [address] Performed By: #### 3 016-3, 79610-2, LIPNF #### [facility] CLIA [id number] [address] [place] [address] [place] Neutrophils/100 WBC (Bld) 78.0 % Normal [facility] Comment on above: Order Comment: Speci men Type: BLOOD SPECIMEN Ordering Facility: [facility] Address: [address] [place] [address] Performed By: #### 3 016-3, 15048-6, LIPNF #### [facility] CLIA [id number] [address] [place] [address] [place] Nucleated RBC (Bld) [#/Vol] 10*3/uL Normal <0.01 [facility] Comment on above: Order Comment: Speci men Type: BLOOD SPECIMEN Ordering Facility: [facility] Address: [address] [place] [address] Performed By: #### 3 016-3, 12085-7, LIPNF #### [facility] CLIA [id number] [address] [place] [address] [place] Nucleated RBC/100 WBC (Bld) [Ratio] 0.0 /100 WBC Normal [facility] Comment on above: Order Comment: Speci men Type: BLOOD SPECIMEN Ordering Facility: [facility] Address: [address] [place] [address] Performed By: #### 3 016-3, 02364-2, LIPNF #### [facility] CLIA [id number] [address] [place] [address] [place] Platelet mean volume (Bld) [Entitic vol] 10.2 fL Normal 9.0-12.7 [facility] Comment on above: Order Comment: Speci men Type: BLOOD SPECIMEN Ordering Facility: [facility] Address: [address] [place] [address] Performed By: #### 3 016-3, 33972-0, LIPNF #### [facility] CLIA [id number] [address] [place] [address] [place] Platelets (Bld) [#/Vol] 373 10*3/uL Normal 150-400 [facility] Comment on above: Order Comment: Speci men Type: BLOOD SPECIMEN Ordering Facility: [facility] Address: [address] [place] [address] Performed By: #### 3 016-3, 47541-8, LIPNF #### [facility] CLIA [id number] [address] [place] [address] [place] RBC (Bld) [#/Vol] 4.59 10*6/uL Normal 3.90-5.20 [facility] Comment on above: Order Comment: Speci men Type: BLOOD SPECIMEN Ordering Facility: [facility] Address: [address] [place] [address] Performed By: #### 3 016-3, 49655-5, LIPNF #### [facility] CLIA [id number] [address] [place] [address] [place] WBC (Bld) [#/Vol] 12.05 10*3/uL High 3.70-11.00 [facility] Comment on above: Order Comment: Speci men Type: BLOOD SPECIMEN Ordering Facility: [facility] Address: [address] [place] [address] Performed By: #### 3 016-3, 99914-7, LIPNF #### [facility] CLIA [id number] [address] [place] [address] [place] CNOVon 09-24-2024 CNOV Office Visit (INTMWS ) KESHIA ROJAS ([id number]) 1950 F Date Time Provider Department 09/24/24 [...] soreness. She is scheduled to see a commissioned sales associate on November 12 for further evaluation. Keshia has been experiencing difficulties with her mail-order thyroid medication, noting delays in delivery. 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 Recording using [employer] software for draft documentation of the visit was discussed with the patient/authorized treasury representative; all questions welcomed and answered. Patient/authorized treasury representative agreed to proceed Her medications were [...] HEAD ACHE (more content not included)... Normal [facility] Comprehensive metabolic 2000 panelon 09-24-2024 Albumin [Mass/Vol] 4.0 g/dL Normal 3.9-4.9 [facility] Comment on above: Order Comment: Speci men Type: BLOOD SPECIMEN Ordering Facility: [facility] Address: [address] [place] [address] Performed By: #### 3 016-3, 52313-8, LIPNF #### [facility] CLIA [id number] [address] [place] [address] [place] ALP [Catalytic activity/Vol] 71 U/L Normal 34-123 [facility] Comment on above: Order Comment: Speci men Type: BLOOD SPECIMEN Ordering Facility: [facility] Address: [address] [place] [address] Performed By: #### 3 016-3, 33543-2, LIPNF #### [facility] CLIA [id number] [address] [place] [address] [place] ALT [Catalytic activity/Vol] 32 U/L Normal 7-38 [facility] Comment on above: Order Comment: Speci men Type: BLOOD SPECIMEN Ordering Facility: [facility] Address: [address] [place] [address] Performed By: #### 3 016-3, 90576-1, LIPNF #### [facility] CLIA [id number] [address] [place] [address] [place] Anion gap [Moles/Vol] 12 mmol/L Normal 8-15 [facility] Comment on above: Order Comment: Speci men Type: BLOOD SPECIMEN Ordering Facility: [facility] Address: [address] [place] [address] Performed By: #### 3 016-3, 81036-7, LIPNF #### [facility] CLIA [id number] [address] [place] [address] [place] AST [Catalytic activity/Vol] 28 U/L Normal 13-35 [facility] Comment on above: Order Comment: Speci men Type: BLOOD SPECIMEN Ordering Facility: [facility] Address: [address] [place] [address] Performed By: #### 3 016-3, , LIPNF #### [facility] CLIA [id number] [address] [place] [address] [place] Bilirubin [Mass/Vol] 0.4 mg/dL Normal 0.2-1.3 [facility] Comment on above: Order Comment: Speci men Type: BLOOD SPECIMEN Ordering Facility: [facility] Address: [address] [place] [address] Performed By: #### 3 016-3, , LIPNF #### [facility] CLIA [id number] [address] [place] [address] [place] Calcium [Mass/Vol] 10.1 mg/dL Normal 8.5-10.2 [facility] Comment on above: Order Comment: Speci men Type: BLOOD SPECIMEN Ordering Facility: [facility] Address: [address] [place] [address] Performed By: #### 3 016-3, , LIPNF #### [facility] CLIA [id number] [address] [place], [place] [id number] [place] Chloride [Moles/Vol] 104 mmol/L Normal 98-107 [facility] Comment on above: Order Comment: Speci men Type: BLOOD SPECIMEN Ordering Facility: [facility] Address: [address] [place] [address] Performed By: #### 3 016-3, , LIPNF #### [facility] CLIA [id number] [address] [place] [address] [place] CO2 [Moles/Vol] 23 mmol/L Normal 22-30 [facility] Comment on above: Order Comment: Speci men Type: BLOOD SPECIMEN Ordering Facility: [facility] Address: [address] [place] [address] Performed By: #### 3 016-3, 11869-9, LIPNF #### [facility] CLIA [id number] [address] [place] [address] [place] Creatinine [Mass/Vol] 0.69 mg/dL Normal 0.58-0.96 [facility] Comment on above: Order Comment: Speci men Type: BLOOD SPECIMEN Ordering Facility: [facility] Address: [address] [place] [address] Performed By: #### 3 016-3, 65781-6, LIPNF #### [facility] CLIA [id number] [address] [place] [address] [place] Creatinine and Glomerular filtration rate.predicted panel (S/P/Bld) 91 mL/min/1.73m??? Normal >=60 [facility] Comment on above: Order Comment: Epi lind Type: BLOOD SPECIMEN Ordering Facility: [facility] Address: [address] [place] [address] Result Comment: Savana mated Glomerular Filtration Rate [...] actual GFR. Performed By: #### 3 016-3, 25913-9, LIPNF #### [facility] CLIA [id number] [address] [place] [address] [place] Glucose [Mass/Vol] 151 mg/dL High 74-99 [facility] Comment on above: Order Comment: Speci men Type: BLOOD SPECIMEN Ordering Facility: [facility] Address: [address] [place] [address] Result Comment: The [place] Diabetes [employer] (ADA) provides guidance for cutoff [...] Standards of Medical Care in Diabetes 2016, [place] [employer]. Diabetes Care. 2016.39(Suppl 1). Performed By: #### 3 016-3, 38403-8, LIPNF #### [facility] CLIA [id number] [address] [place] [address] [place] Potassium [Moles/Vol] 4.5 mmol/L Normal 3.7-5.1 [facility] Comment on above: Order Comment: Speci men Type: BLOOD SPECIMEN Ordering Facility: [facility] Address: [address] [place] [address] Performed By: #### 3 016-3, 30637-6, LIPNF #### [facility] CLIA [id number] [address] [place] [address] [place] Protein [Mass/Vol] 7.7 g/dL Normal 6.3-8.0 [facility] Comment on above: Order Comment: Speci men Type: BLOOD SPECIMEN Ordering Facility: [facility] Address: [address] [place] [address] Performed By: #### 3 016-3, 65808-0, LIPNF #### [facility] CLIA [id number] [address] [place] [address] [place] Sodium [Moles/Vol] 139 mmol/L Normal 136-144 [facility] Comment on above: Order Comment: Speci men Type: BLOOD SPECIMEN Ordering Facility: [facility] Address: [address] [place] [address] Performed By: #### 3 016-3, 54799-2, LIPNF #### [facility] CLIA [id number] [address] [place] [address] [place] Urea nitrogen [Mass/Vol] 18 mg/dL Normal 7-21 [facility] Comment on above: Order Comment: Irenei men Type: BLOOD SPECIMEN Ordering Facility: [facility] Address: [address] [place] [address] Performed By: #### 3 016-3, 93274-6, LIPNF #### [facility] CLIA [id number] [address] [place] [address] [place] HbA1c (Bld)on 09-24-2024 Average glucose Estimated from glycated hemoglobin (Bld) [Mass/Vol] 169 mg/dL Normal [facility] Comment on above: Order Comment: Epi men Type: BLOOD SPECIMEN Ordering Facility: [facility] Address: [address] [place] [address] Result Comment: eAG: (Estimated average glucose) is a calculated value from HgbA1c and is treasury representative of the average blood glucose level in the last 2-3 month period. Performed By: #### 3 016-3, 81671-1, LIPNF #### [facility] CLIA [id number] [address] [place] [address] [place] HbA1c (Bld) [Mass fraction] 7.5 % High 4.3-5.6 [facility] Comment on above: Order Comment: Epi [facility] Type: BLOOD SPECIMEN Ordering Facility: [facility] Address: [address] [place] [address] Result Comment: [place] Diabetes Association guidelines indicate that patients with HgbA1c in the range 5.7-6.4% are at increased risk for development of diabetes, and intervention by lifestyle modification may be beneficial. HgbA1c greater or equal to 6.5% is considered diagnostic of diabetes. Performed By: #### 3 016-3, 05715-4, LIPNF #### [facility] CLIA [id number] [address] [place] [address] OF GUS LIPID PANEL, NONFASTINGon Cholesterol [Mass/Vol] 184 mg/dL Normal <200 [facility] Comment on above: Order Comment: Speci men Type: BLOOD SPECIMEN Ordering Facility: [facility] Address: [address] [place] [address] Result Comment: <200 mg/dL, Desirable 200-239 mg/dL, Borderline high >239 mg/dL, High Performed By: #### 3 016-3, 31073-8, LIPNF #### [facility] CLIA [id number] [address] [place] [address] STATES [place] [facility] HDL CHOLESTEROL, NF 69 mg/dL Normal >39 [facility] Comment on above: Order Comment: Speci men Type: BLOOD SPECIMEN Ordering Facility: [facility] Address: [address] [place] [address] Result Comment: 40-5 9 mg/dL, Acceptable >59 mg/dL, High: Negative risk factor for coronary heart disease <40 mg/dL, Low: Positive risk factor for coronary heart disease Performed By: #### 3 016-3, 38389-5, LIPNF #### [facility] CLIA [id number] [address] [place] [address] LDL CHOLESTEROL CALCULATED, NF 103 mg/dL High <100 [facility] Comment on above: Order Comment: Speci men Type: BLOOD SPECIMEN Ordering Facility: [facility] Address: [address] [place] [address] Result Comment: <100 mg/dL, Optimal 100-129 mg/dL, Near optimal/above optimal 130-159 mg/dL, Borderline high 160-189 mg/dL, High >189 mg/dL, Very high Secondary prevention optimal LDL Cholesterol levels are recommended to be <70 mg/dL LDL cholesterol is calculated using the Zheng-NIH equation. Performed By: #### 3 016-3, 46236-2, LIPNF #### [facility] CLIA [id number] [address] [place], [place] [address] [address] [place] LDL/HDL RATIO, NF 1.49 mg/dL Normal <2.54 [facility] Comment on above: Order Comment: Speci men Type: BLOOD SPECIMEN Ordering Facility: [facility] Address: [address] [place] [address] Result Comment: Refe marahce: 1. National Cholesterol Education Program ATP III Guideline At-A-Glance Quick Desk Reference: National Heart, Lung, and Blood Anderson. National Institutes of Health. 2001: NIH Publication No. 01-3305. 2. An International Atherosclerosis Society position paper: global recommendations for the management of dyslipidemia: executive summary, Atherosclerosis. 2014: 232(2):410-413. Performed By: #### 3 016-3, 38756-2, LIPNF #### [facility] [place] [id number] [address] [place] [address] [place] NON HDL CHOL, NF 115 mg/dL Normal <130 [facility] Comment on above: Order Comment: Speci men Type: BLOOD SPECIMEN Ordering Facility: [facility] Address: [address] [place] [address] Result Comment: <130 mg/dL, Optimal 130-159 mg/dL, Near optimal/above optimal 160-189 mg/dL, Borderline high 190-219 mg/dL, High >219 mg/dL, Very high Secondary prevention optimal non HDL Cholesterol levels are recommended to be <100 mg/dL Performed By: #### 3 016-3, 41160-9, LIPNF #### [facility] [place] [id number] [address] [place] [address] [place] T CHOL/HDL RATIO NF 2.67 mg/dL Normal <5.10 [facility] Comment on above: Order Comment: Speci men Type: BLOOD SPECIMEN Ordering Facility: [facility] Address: [address] [place] [address] Performed By: #### 3 016-3, 40043-9, LIPNF #### [facility] CLIA [id number] [address] [place] [address] [place] TRIGLYCERIDES, NF 66 mg/dL Normal <150 [facility] Comment on above: Order Comment: Speci men Type: BLOOD SPECIMEN Ordering Facility: [facility] Address: [address] [place] [address] Result Comment: <150 mg/dL, Normal 150-199 mg/dL, Borderline high 200-499 mg/dL, High >499 mg/dL, Very high Performed By: #### 3 016-3, 77767-5, LIPNF #### [facility] CLIA [id number] [address] [place] [address] [place] VLDL CHOLESTEROL, NF 11 mg/dL Normal <30 [facility] Comment on above: Order Comment: Speci men Type: BLOOD SPECIMEN Ordering Facility: [facility] Address: [address] [place] [address] Performed By: #### 3 016-3, 78943-2, LIPNF #### [facility] CLIA [id number] [address] [place] [address] [place] TSH SerPl-aCncon 09-24-2024 TSH Qn 0.626 m[IU]/L Normal 0.270-4.200 [facility] Comment on above: Order Comment: Speci men Type: BLOOD SPECIMEN Ordering Facility: [facility] Address: [address] [place] [address] Performed By: #### 3 016-3, 88256-7, LIPNF #### [facility] CLIA [id number] [address] [place] [address] [place] Ngoc 08-25-2024 CNPN Telephone (INTMWS) ANNCIKESHIA TOLBERT ([id number]) 1950 F Date Time Provider Department 08/25/24 [...] mandibular pain, lymphadenopathy, possible angio edema per [facility] ER note 04/24/2022 MECLIZINE 03/07/2006 7 [...] Date Reviewed: 05/21/2024 Reviewed by: Juan Rodriguez APRN.OVERLOCK HEMMER - Fully Assessed Reason for Visit: Medication [...] once daily. - COMPOUNDED PRESCRIPTION SEMI ELECTRIC [facility] BED AND MATTRESS, with side rails Diagnoses: [...] Take 1 (more content not included)... Normal [facility] Emergency Department Summary on 08-22-2024 Emergency Department Summary Normal [facility] Gastroenterology Visit Repor ton 06-18-2024 Gastroenterology Visit Report Normal [facility] HIP, UNI W/ Pelvis 2-3 Views on 06-18-2024 HIP, UNI W/ Pelvis 2-3 Views Normal [facility] Lumbar Spine 2 or 3 Viewson 06-18-2024 Lumbar Spine 2 or 3 Views Normal [facility] Orthopedic Visit Reporton Orthopedic Visit Report Normal [facility] Shoulder min 2 Viewson 05-26 Shoulder min 2 Views Normal [facility] CNOVon 05-21-2024 CNOV Office Visit (INTMWS ) KESHIA ROJAS ([id number]) 1950 F Date Time Provider Department 05/21/24 1:20 PM JUAN RODRIGUEZ INTMWS During your visit today, we recorded the following information about you: Pulse Respiration Blood pressure Weight 76/minute 16/minute 128/82 92 kg Juan Rodriguez, TOBACCO GRADER.OVERLOCK HEMMER 05/24/2024 7:54 AM Signed SUBJECTIVE: Shingrix Vaccine(2 of 3) due on 05/01/2012 DTaP,Tdap,Td Vaccine(1 - Tdap) due on 11/19/2019 HPI Keshia Rojas is a 74 year old female. 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 Wireless Retail Manager present, NIMO. ALLERGIES Allergen Reactions Adhesive [...] mandibular pain, lymphadenopathy, possible angio edema per [facility] ER note 04/24/2022 Meclizine Swelling URI (more content not included)... Normal [facility] Orthopedic Visit Reporton Orthopedic Visit Report Normal [facility] Orthopedic Visit Reporton Orthopedic Visit Report Normal [facility] Enterography Abd/Brody 04-08 Enterography Abd/Pel Normal [facility] Orthopedic Visit Reporton Orthopedic Visit Report Normal [facility] Knee 4 or More Viewson 03-12 Knee 4 or More Views Normal [facility] Orthopedic Visit Reporton Orthopedic Visit Report Normal [facility] FORTUNATO SCREENING W TOMOon 03-05 FORTUNATO SCREENING W MITCHELL * * *Final Report* * * DATE OF EXAM: Mar 05 2024 1:29PM [facility] 0582 - FORTUNATO SCREENING W MITCHELL / PROCEDURE REASON: Encounter for screening mammogram for breast cancer * * * * Physician Interpretation * * * * RESULT: [facility] [place] [id number] #[id number] - FORTUNATO SCREENING W MITCHELL HISTORY: Patient [...] Emeterio Aguirre M.D. Electronically signed on: 03/08/2024 Offset Machine Operator: FREDDIE Transcribe Date/Time: Mar 05 2024 1:16P Dictated by: EMETERIO AGUIRRE MD This examination was interpreted and the report reviewed and electronically signed by: EMETERIO AGUIRRE MD on Mar 08 2024 9:09AM EST [id number] Normal [facility] Gastroenterology Visit Repor ton 02-20-2024 Gastroenterology Visit Report Normal [facility] Orthopedic Visit Reporton Orthopedic Visit Report Normal [facility] XR Knee - bilateral 4 Viewso n 07-22-2023 IMPRESSION: No acute osseous abnormality in the knees, mild degenerative changes. Offset Machine Operator: TAMIKO Transcribe Date/Time: Jul 22 2023 5:11P [...] No joint effusion. DIVISION OF RADIOLOGY Provider, [facility] - 07/22/2023 * * *Final Report* [...] abnormality in the knees, mild degenerative changes. Offset Machine Operator: [facility] Transcribe Date/Time: Jul 22 2023 5:11P Dictated by : DAVID GONZALEZ MD This examination was interpreted and the report reviewed and electronically signed by: DAVID GONZALEZ MD on Jul 22 2023 5:14PM [facility] Radiology Study observation (narrative) [facility] XR Knee - bilateral 4 ViewsO rdered By: [facility] Provider on 07-22-2023 [facility] TOX SCREEN ROUT URon 023 Amphetamines Confirm (U) [Mass/Vol] Negative Negative [facility] Barbiturates Urine Negative Negative [facility] Benzodiazepines Urine Positive Abnormal Negative [facility] Cannabinoids Screen Ql (U) Negative Negative [facility] Cocaine Ql (U) Negative Negative [facility] Ethanol (U) [Mass/Vol] <11 mg/dL Cl [facility] Opiates Screen Ql (U) Negative Negative [facility] oxyCODONE cutoff Screen (U) [Mass/Vol] Negative Negative [facility] Phencyclidine Ql (U) Negative [facility] CBC W Auto Differential pane l (Bld)on 02-19-2023 Basophils (Bld) [#/Vol] 0.12 10*3/uL High <0.11 k/uL [facility] Basophils/100 WBC (Bld) 1.3 % C [facility] Differential cell count method Nom (Bld) Auto [facility] Eosinophils (Bld) [#/Vol] 0.73 10*3/uL High <0.46 k/ uL [facility] Eosinophils/100 WBC (Bld) 8.0 % [facility] Erythrocyte distribution width (RBC) [Ratio] 13.5 % 11.5 - 15.0 % [facility] Hematocrit (Bld) [Volume fraction] 42.7 % 36.0 - 46.0 % [facility] Hemoglobin (Bld) [Mass/Vol] 14.0 g/dL 11.5 - 15.5 g/dL [facility] Immature granulocytes (Bld) [#/Vol] 0.03 10*3/uL <0.10 k/uL [facility] Immature granulocytes/100 WBC (Bld) 0.3 % [facility] Lymphocytes (Bld) [#/Vol] 2.95 10*3/uL 1. 00 - 4.00 k/uL [facility] Lymphocytes/100 WBC (Bld) 32.3 % [facility] MCH (RBC) [Entitic mass] 31.1 pg 26. 0 - 34.[address] [facility] MCHC (RBC) [Mass/Vol] 32.8 g/dL 30.5 - 36.0 g/dL [facility] MCV (RBC) [Entitic vol] 94.9 fL 80.0 - 100.[address] [facility] Monocytes (Bld) [#/Vol] 0.93 10*3/uL High <0.87 k/uL [facility] Monocytes/100 WBC (Bld) 10.2 % C [facility] Neutrophils (Bld) [#/Vol] 4.36 10*3/uL 1. 45 - 7.50 k/uL [facility] Neutrophils/100 WBC (Bld) 47.9 % [facility] Nucleated RBC (Bld) [#/Vol] <0.01 k/ uL [facility] Nucleated RBC/100 WBC (Bld) [Ratio] 0.0 /[address] [facility] Platelet mean volume (Bld) [Entitic vol] 9.8 fL 9.0 - 12.[address] [facility] Platelets (Bld) [#/Vol] 370 10*3/uL 150 - 400 k/uL [facility] RBC (Bld) [#/Vol] 4.50 10*6/uL 3.90 - 5.2 0 m/uL [facility] WBC (Bld) [#/Vol] 9.12 10*3/uL 3.70 - 11.00 k/uL [facility] Comprehensive metabolic 2000 panelon 02-19-2023 Albumin [Mass/Vol] 4.1 g/dL 3.9 - 4.9 g/dL [facility] ALP [Catalytic activity/Vol] 60 U/L 34 - 123 U/L [facility] ALT [Catalytic activity/Vol] 24 U/L 7 - 38 U/L [facility] Anion gap [Moles/Vol] 12 mmol/L 9 - 18 mmol/L [facility] AST [Catalytic activity/Vol] 21 U/L 13 - 35 U/L [facility] Bilirubin [Mass/Vol] 0.5 mg/dL 0.2 - 1 .3 mg/dL [facility] Calcium [Mass/Vol] 9.7 mg/dL 8.5 - 10. 2 mg/dL [facility] Chloride [Moles/Vol] 103 mmol/L 97 - 10 5 mmol/L [facility] CO2 [Moles/Vol] 27 mmol/L 22 - 30 mmol/L [facility] Creatinine [Mass/Vol] 0.81 mg/dL 0.58 - 0.96 mg/dL [facility] Estimated Glomerular Filtration Rate 77 mL/min/1.73m >=60 mL/min/1.[address] [facility] Glucose [Mass/Vol] 119 mg/dL High 74 - 99 mg/dL [facility] Potassium [Moles/Vol] 4.6 mmol/L 3.7 - 5.1 mmol/L [facility] Protein [Mass/Vol] 7.2 g/dL 6.3 - 8.0 g/dL [facility] Sodium [Moles/Vol] 142 mmol/L 136 - 144 mmol/L [facility] Urea nitrogen [Mass/Vol] 19 mg/dL 7 - 21 mg/dL [facility] HbA1c (Bld)on 02-19-2023 Average glucose Estimated from glycated hemoglobin (Bld) [Mass/Vol] 128 mg/dL [facility] HbA1c (Bld) [Mass fraction] 6.1 % High 4.3 - 5. 6 % [facility] Lipid 1996 panelon 3 Cholesterol [Mass/Vol] 179 mg/dL <200 mg/dL [facility] Cholesterol in HDL [Mass/Vol] 54 mg/dL >39 mg/dL [facility] Cholesterol in LDL [Mass/Vol] 110 mg/dL High <100 mg/dL [facility] Cholesterol in LDL/Cholesterol in HDL [Mass ratio] 2.04 {ratio} <2.54 [facility] Cholesterol in VLDL [Mass/Vol] 15 mg/dL <30 mg/dL [facility] Cholesterol non HDL [Mass/Vol] 125 mg/dL <130 mg/dL [facility] Cholesterol.total/Cholester ol in HDL [Mass ratio] 3.31 {ratio} <5.10 [facility] Fasting Time [address] [facility] Triglyceride [Mass/Vol] 74 mg/dL <150 mg/dL C [facility] TSH BLDon 02-19-2023 TSH Qn 3.670 m[IU]/L 0.270 - 4.200 mIU/L [facility] No Panel InformationOrdered By: Raul Casper on 10-17-2022 Stool Calprotectin 77 ug/g 0-120 [facility] Comment on above: Concentration Interp retation Follow-Up< 5 - 50 ug/g Normal None>50 -120 ug/g Borderline Re-evaluate in 4-6 weeks >120 ug/g Abnormal Repeat as clinically indicatedPerformed at: - [facility] [address] [id number] Director: Kathrin Rivera MD, Phone: [phone] Stool Pancreatic Elastase 334 >200 [facility] Comment on above: Result Units: ug Lena st./g Severe Pancreatic Insufficiency: <100 Moderate Pancreatic Insufficiency: 100 - 200 Normal: >200Performed at: [facility] [place] [id number] Director: Kathrin Rivera MD, Phone: [phone] Stool lactoferrin detection by immunoassayOrdered By: Raul Casper on 10-17-2022 Lactoferrin IA Ql (Stl) [facility] 24 hour urine coproporphyrin 1 measurement (mass/volume)Ordered By: Raul Casper on 10-15-2022 Coproporphyrin 1 (24H U) [Mass/Vol] 21 ug/24 hr 0-24 [facility] 24 hour urine coproporphyrin 3 measurement (mass/volume)Ordered By: Raul Casper on 10-15-2022 Coproporphyrin 3 (24H U) [Mass/Vol] 81 ug/24 hr 0-74 [facility] Comment on above: Performed at: [address] [id number] Director: Kathrin Rivera MD, Phone: [phone] 24 hour urine heptacarboxylp orphyrin measurement (mass/time)Ordered By: Raul Casper on 10-15-2022 Heptacarboxylporphyrin (24H U) [Mass/Time] <3 ug/24 hr 0-4 [facility] 24 hour urine hexacarboxylpo rphyrin measurement (mass/time)Ordered By: Raul Casper on 10-15-2022 Hexacarboxylporphyrin (24H U) [Mass/Time] <3 ug/24 hr 0-1 [facility] 24 hour urine pentacarboxylp orphyrins measurement (mass/time)Ordered By: Raul Casper on 10-15-2022 Pentacarboxylporphyrins (24H U) [Mass/Time] <3 ug/24 hr 0-4 [facility] 24 hour urine uroporphyrin m easurement (mass/time)Ordered By: Raul Casper on 10-15-2022 Uroporphyrin (24H U) [Mass/Time] 9 ug/24 hr 0-24 [facility] Urine coproporphyrin 1 measu rement (mass/volume)Ordered By: Raul Casper on 10-15-2022 Coproporphyrin 1 (U) [Mass/Vol] 7 ug/L Undefined [facility] Urine coproporphyrin 3 measu rement (mass/volume)Ordered By: Raul Casper on 10-15-2022 Coproporphyrin 3 (U) [Mass/Vol] 27 ug/L Undefined [facility] Urine heptacarboxylporphyrin measurement (mass/volume)Ordered By: Raul Casper on 10-15-2022 Heptacarboxylporphyrin (U) [Mass/Vol] <1 ug/L Undefined [facility] Urine hexacarboxylporphyrin measurement (mass/volume)Ordered By: Raul Casper on 10-15-2022 Hexacarboxylporphyrin (U) [Mass/Vol] <1 ug/L Undefined [facility] Urine pentacarboxylporphyrin s measurement (mass/volume)Ordered By: Raul Casper on 10-15-2022 Pentacarboxylporphyrins (U) [Mass/Vol] <1 ug/L Undefined [facility] Urine uroporphyrin measureme nt (mass/volume)Ordered By: Raul Casper on 10-15-2022 Uroporphyrin (U) [Mass/Vol] 3 ug/L Undefine d [facility] Absolute lymphocyte countOrd ered By: Raul Casper on 10-02-2022 Lymphocytes Auto (Unsp spec) [#/Vol] 2.50 10*3/uL 0.83-4.51 [facility] Albumin Elph [Mass/Vol]Order ed By: Raul Casper on 10-02-2022 Albumin [Mass/Vol] 3.6 g/dL 2.9-4.4 [facility] Atypical perinuclear antineu trophil cytoplasmic antibodies measurementOrdered By: Raul Casper on 10-02-2022 Neutrophil cytoplasmic Ab.perinuclear.atypical IF (S) [Titer] <1:20 titer Neg:<1:20 [facility] Comment on above: Serum is slightly li pemic.The atypical pANCA pattern has been observed in asignificant percentage of patients with ulcerative colitis,primary sclerosing cholangitis and autoimmune hepatitis.Performed at: [facility] [id number] Director: Marcin Álvarez PhD, Phone: [phone] at: [facility] [place] [id number] Director: Kathrin Rivera MD, Phone: [phone] Basophil percentageOrdered B y: Raullucy Casper on 10-02-2022 Basophil percentage < 0.2 AI 0.0-0.9 [facility] Basophils/100 WBC (Bld) 0.8 % 0-1 [facility] Bilirubin [Mass/Vol] 0.40 mg/dL 0.20-1.00 [facility] Comment on above: For patients on eltr ombopag therapy, use of Dimension [place] TBIL is not recommended. Chloride [Moles/Vol] 105 mmol/L 98-107 [facility] Eosinophils/100 WBC (Bld) 5.9 % 0-5 [facility] Glucose [Mass/Vol] 136 mg/dL 74-106 [facility] Comment on above: Fasting Glucose resu lt greater than or equal to 126 mg/dL suggests DIABETES MELLITUS per A.D.A. criteria. LDH [Catalytic activity/Vol] 202 U/L 84-246 [facility] Neutrophils (Bld) [#/Vol] 6.8 10*3/uL 2.0-7.7 [facility] Neutrophils/100 WBC (Bld) 62.4 % 47-70 [facility] Potassium [Moles/Vol] 3.9 mmol/L 3.5-5.1 [facility] Protein [Mass/Vol] 7.8 g/dL 6.4-8.2 [facility] Sodium [Moles/Vol] 138 mmol/L 136-145 [facility] WBC (Bld) [#/Vol] 11.0 10*3/uL 4.4-11.0 [facility] Blood erythrocytes count (nu mber/volume)Ordered By: Raul Casper on 10-02-2022 RBC (Bld) [#/Vol] 4.83 10*6/uL 4.2-5.4 [facility] Blood hemoglobin measurement (mass/volume)Ordered By: Raul Casper on 10-02-2022 Hemoglobin (Bld) [Mass/Vol] 14.7 g/dL 12.0-15. 0 [facility] Blood lymphocytes/100 leukoc ytesOrdered By: Raul Casper on 10-02-2022 Lymphocytes/100 WBC (Bld) 22.8 % 19-41 [facility] Blood monocytes/100 leukocyt esOrdered By: Raul Casper on 10-02-2022 Monocytes/100 WBC (Bld) 7.7 % 0-10 [facility] Blood platelet mean volumeOr dered By: Raul Casper on 10-02-2022 Platelet mean volume (Bld) [Entitic vol] 10.0 fL 6.2-12.0 [facility] Determination of erythrocyte mean corpuscular volume (MCV)Ordered By: Raul Casper on 10-02-2022 MCV (RBC) [Entitic vol] 95.4 fL 81-99 [facility] Erythrocyte sedimentation ra teOrdered By: Raul Casper on 10-02-2022 ESR (Bld) [Velocity] 17 mm/h 0-30 [facility] Hematocrit Auto (Bld) [Volum e fraction]Ordered By: Raul Casper on 10-02-2022 Hematocrit (Bld) [Volume fraction] 46.1 % 37-47 [facility] Interpretation of serum or p lasma protein pattern by immunofixation (narrative resultOrdered By: Raul Casper on 10-02-2022 Protein Fractions Immunofixation Emil [Interp] See comment [facility] Comment on above: Result: Not Observed Laboratory - Chemistry and C hemistry - challengeOrdered By: Raul Casper on 10-02-2022 ALP [Catalytic activity/Vol] 76 U/L 45-117 [facility] ALT [Catalytic activity/Vol] 32 U/L 13-56 [facility] CO2 [Moles/Vol] 27.0 mmol/L 21.0-32.0 [facility] Urea nitrogen/Creatinine [Mass ratio] 18.1 mg/mg 10-20 [facility] Laboratory - Hematology and Cell countsOrdered By: Raul Casper on 10-02-2022 Erythrocyte distribution width (RBC) [Entitic vol] 47.1 fL 35.1-43.9 [facility] Erythrocyte distribution width (RBC) [Ratio] 13.4 % 11.6-14.6 [facility] Immature granulocytes/100 WBC (Bld) 0.400 % 0.0-0.9 [facility] Comment on above: IG% - Immature Granu locytes (promyelocytes, myelocytes and metamyelocytes) > 1% indicates that a LEFT SHIFT is Present. MCH (RBC) [Entitic mass] 30.4 pg 27.0-32.0 [facility] Nucleated RBC/100 WBC (Bld) [Ratio] 0 % 0-5 [facility] MCHC Auto (RBC) [Mass/Vol]Or dered By: Raul Casper on 10-02-2022 MCHC (RBC) [Mass/Vol] 31.9 g/dL 32-36 [facility] No Panel InformationOrdered By: Raul Casper on 10-02-2022 Addendum Document Comment . [facility] Comment on above: Protein electrophore sis scan will follow via computer,mail, or retirement administrator delivery. Centromere B Antibody <0.2 AI 0.0-0.9 [facility] Endomysial IgA Antibody Negative Negative [facility] Estimated GFR (MDRD) Amer 75 mL/min >60 [facility] Comment on above: GFR Calc Estimated GFR (MDRD) Non-Af Amer 62 mL/min >60 [facility] Comment on above: Non- GFR Calc Immunoglobulin E 171 IU/mL 6-495 [facility] Miscellaneous Test See comment [facility] Comment on above: TEST RESULT [...] IN LAB CONTAINS ADDITIONAL TEST SITE INFORMATION. DISTRESSER Antibody <0.2 AI 0.0-0.9 [facility] Platelets bldOrdered By: Freddy Casper on 10-02-2022 Platelets (Bld) [#/Vol] 334 10*3/uL 150-450 [facility] Serum DNA double strand anti body assay (units/volume)Ordered By: Raul Casper on 10-02-2022 DNA double strand Ab Qn (S) 1 [IU]/mL 0-9 [facility] Comment on above: Negative <5 Equivoca l 5 - 9 Positive >9 Serum Shira-1 antibody assay (u nits/volume)Ordered By: Raul Casper on 10-02-2022 Shira-1 extractable nuclear Ab Qn (S) <0.2 AI 0.0-0.9 [facility] Serum Scl-70 extractable nuc lear antibody assay (units/volume)Ordered By: Raul Casper on 10-02-2022 SCL-70 extractable nuclear Ab Qn (S) <0.2 AI 0.0-0.9 [facility] Serum Louise extractable nucl ear antibody detectionOrdered By: Raul Casper on 10-02-2022 Louise extractable nuclear Ab Ql (S) <0.2 AI 0.0-0.9 [facility] Serum eopuu-3-thtewrnn measu rement by electrophoresisOrdered By: Raul Casper on 10-02-2022 Alpha 1 globulin Elph [Mass/Vol] 0.2 g/dL 0.0-0.4 [facility] Alpha 1 globulin Elph [Mass/Vol] 0.7 g/dL 0.4-1.0 [facility] Serum classic neutrophil cyt oplasmic antibody assay (units/volume)Ordered By: Raul Casper on 10-02-2022 Neutrophil cytoplasmic Ab.classic Qn (S) <1:20 titer Neg:<1:20 [facility] Comment on above: Serum is slightly li pemic. Serum globulin measurement ( mass/volume)Ordered By: Raul Casper on 10-02-2022 Globulin (S) [Mass/Vol] 3.5 g/dL 2.2-3.9 [facility] Serum or plasma C reactive p rotein measurement (mass/volume)Ordered By: Raul Casper on 10-02-2022 CRP [Mass/Vol] 5.65 mg/L 0.0-3.0 [facility] Comment on above: C-Reactive Protein ( CRP) provides useful information for thediagnosis, therapy and monitoring of inflammatory processesand associated diseases. For the evaluation of Relative Riskfor Cardiovascular Disease, a High Sensitivity CRP (HSCRP)should be ordered. Serum or plasma IgA measurem ent (mass/volume)Ordered By: Raul Casper on 10-02-2022 IgA [Mass/Vol] 473 mg/dL 64-422 [facility] Serum or plasma IgG measurem ent (mass/volume)Ordered By: Raul Casper on 10-02-2022 IgG [Mass/Vol] 1301 mg/dL [id number] [facility] Serum or plasma IgM measurem ent (mass/volume)Ordered By: Raul Casper on 10-02-2022 IgM [Mass/Vol] 75 mg/dL 26-217 [facility] Serum or plasma albumin jojo urement (mass/volume)Ordered By: Raul Casper on 10-02-2022 Albumin [Mass/Vol] 3.5 g/dL 3.2-5.0 [facility] Serum or plasma albumin/glob ulin mass ratioOrdered By: Raul Casper on 10-02-2022 Albumin/Globulin [Mass ratio] 0.8 {ratio} 0.9-2.4 [facility] Serum or plasma beta globuli n measurement by electrophoresis (mass/volume)Ordered By: Raul Casper on 10-02-2022 Beta globulin Elph [Mass/Vol] 1.2 g/dL 0.7-1.3 [facility] Serum or plasma calcium jojo urement (mass/volume)Ordered By: Raul Casper on 10-02-2022 Calcium [Mass/Vol] 9.2 mg/dL 8.5-10.1 [facility] Serum or plasma creatinine m easurement (mass/volume)Ordered By: Raul Casper on 10-02-2022 Creatinine [Mass/Vol] 0.94 mg/dL 0.55-1.02 [facility] Comment on above: The validity of the calculated GFR & GFRAA in patients over 70 years has not been determined. Clinical correlation is essential. Serum or plasma gamma globul in measurement by electrophoresis (mass/volume)Ordered By: Raul Casper on 10-02-2022 Gamma globulin Elph [Mass/Vol] 1.3 g/dL 0.4-1.8 [facility] Serum or plasma immunoelectr ophoresis interpretation (nominal result)Ordered By: Raul Casper on 10-02-2022 Interpretation IEP [Interp] Comment . [facility] Comment on above: No monoclonality det ected. Serum or plasma urea nitroge n measurement (mass/volume)Ordered By: Raul Casper on 10-02-2022 Urea nitrogen [Mass/Vol] 17 mg/dL 7-18 [facility] Serum perinuclear neutrophil cytoplasmic antibody titer by immunofluorescenceOrdered By: Raul Casper on 10-02-2022 Neutrophil cytoplasmic Ab.perinuclear IF (S) [Titer] <1:20 titer Neg:<1:20 [facility] Comment on above: Serum is slightly li pemic.The presence of positive fluorescence exhibiting P-ANCA orC-ANCA patterns alone is not specific for the diagnosis ofWegener's Granulomatosis (WG) or microscopic polyangiitis.Decisions about treatment should not be based solely onANCA IFA results. The [employer] Consensusrecommends follow up testing of positive sera with both NJ-3 and MPO-ANCA enzyme immunoassays. As many as 5% serumsamples are positive only by EIA. Ref. AM J Clin [id number];111:507-513. Serum tissue transglutaminas e IgA antibody assay (units/volume)Ordered By: Raul Casper on 10-02-2022 tTG IgA Qn (S) <2 U/mL 0-3 [facility] Comment on above: Negative 0 - 3 Weak Positive 4 - 10 Positive >10 Tissue Transglutaminase (tTG) has been identified as the endomysial antigen. Studies have demonstr- ated that endomysial IgA antibodies have over 99% specificity for gluten sensitive enteropathy. Thin prep Papanicolaou smear with manual screeningOrdered By: Raul Friend on 10-02-2022 Thin prep Papanicolaou smear with manual screening 21 U/L 15-37 [facility] Thin prep Papanicolaou smear with manual screening 6 5-15 [facility] Thin prep Papanicolaou smear with manual screening 1.1 0.7-1.7 [facility] Total protein bloodOrdered B y: Raul Friend on 10-02-2022 Protein [Mass/Vol] 7.1 g/dL 6.0-8.5 [facility] FORTUNATO SCREENINGon 09-13-2022 [facility] Absolute lymphocyte countOrd ered By: ED PROVIDER on 08-05-2022 Lymphocytes Auto (Unsp spec) [#/Vol] 2.49 10*3/uL 0.83-4.51 [facility] Basophil percentageOrdered B y: ED PROVIDER on 08-05-2022 Basophils/100 WBC (Bld) 1.2 % 0-1 [facility] Bilirubin [Mass/Vol] 0.70 mg/dL 0.20-1.00 [facility] Comment on above: For patients on eltr ombopag therapy, use of Dimension [place] TBIL is not recommended. Chloride [Moles/Vol] 107 mmol/L 98-107 [facility] Eosinophils/100 WBC (Bld) 5.4 % 0-5 [facility] Glucose [Mass/Vol] 110 mg/dL 74-106 [facility] Comment on above: Fasting Glucose resu lt from 100 to 125 mg/dL suggests IMPAIRED HOMEOSTASIS per A.D.A. criteria. Neutrophils (Bld) [#/Vol] 5.9 10*3/uL 2.0-7.7 [facility] Neutrophils/100 WBC (Bld) 60.4 % 47-70 [facility] Potassium [Moles/Vol] 4.1 mmol/L 3.5-5.1 [facility] Protein [Mass/Vol] 7.7 g/dL 6.4-8.2 [facility] Sodium [Moles/Vol] 140 mmol/L 136-145 [facility] WBC (Bld) [#/Vol] 9.8 10*3/uL 4.4-11.0 [facility] Blood erythrocytes count (nu mber/volume)Ordered By: ED PROVIDER on 08-05-2022 RBC (Bld) [#/Vol] 4.73 10*6/uL 4.2-5.4 [facility] Blood hemoglobin measurement (mass/volume)Ordered By: ED PROVIDER on 08-05-2022 Hemoglobin (Bld) [Mass/Vol] 14.8 g/dL 12.0-15. 0 [facility] Blood lymphocytes/100 leukoc ytesOrdered By: ED PROVIDER on 08-05-2022 Lymphocytes/100 WBC (Bld) 25.3 % 19-41 [facility] Blood monocytes/100 leukocyt esOrdered By: ED PROVIDER on 08-05-2022 Monocytes/100 WBC (Bld) 7.4 % 0-10 [facility] Blood platelet mean volumeOr dered By: ED PROVIDER on 08-05-2022 Platelet mean volume (Bld) [Entitic vol] 9.4 fL 6.2-12.0 [facility] Determination of erythrocyte mean corpuscular volume (MCV)Ordered By: ED PROVIDER on 08-05-2022 MCV (RBC) [Entitic vol] 93.2 fL 81-99 [facility] Hematocrit Auto (Bld) [Volum e fraction]Ordered By: ED PROVIDER on 08-05-2022 Hematocrit (Bld) [Volume fraction] 44.1 % 37-47 [facility] Laboratory - Chemistry and C hemistry - challengeOrdered By: ED PROVIDER on 08-05-2022 ALP [Catalytic activity/Vol] 93 U/L 45-117 [facility] ALT [Catalytic activity/Vol] 37 U/L 13-56 [facility] CO2 [Moles/Vol] 27.0 mmol/L 21.0-32.0 [facility] Globulin (S) [Mass/Vol] 4.2 g/dL 2.2-4.2 [facility] Urea nitrogen/Creatinine [Mass ratio] 16.9 mg/mg 10-20 [facility] Laboratory - Chemistry and C hemistry - challengeOrdered By: Paul Lara on 08-05-2022 Lipase [Catalytic activity/Vol] 27 U/L 13-75 [facility] Comment on above: Please note:LIPASE r evised reference range effective 22. New Lipase methodology. Expected to produce lower values than the previous assay method. NEW Reference Range: 13 - 75 U/L Laboratory - Hematology and Cell countsOrdered By: ED PROVIDER on 08-05-2022 Erythrocyte distribution width (RBC) [Entitic vol] 44.8 fL 35.1-43.9 [facility] Erythrocyte distribution width (RBC) [Ratio] 13.1 % 11.6-14.6 [facility] Immature granulocytes/100 WBC (Bld) 0.300 % 0.0-0.9 [facility] Comment on above: IG% - Immature Granu locytes (promyelocytes, myelocytes and metamyelocytes) > 1% indicates that a LEFT SHIFT is Present. MCH (RBC) [Entitic mass] 31.3 pg 27.0-32.0 [facility] Nucleated RBC/100 WBC (Bld) [Ratio] 0 % 0-5 [facility] MCHC Auto (RBC) [Mass/Vol]Or dered By: ED PROVIDER on 08-05-2022 MCHC (RBC) [Mass/Vol] 33.6 g/dL 32-36 [facility] No Panel InformationOrdered By: ED PROVIDER on 08-05-2022 Estimated Creatinine Clearance Calc 49.34 ml/min [facility] Estimated GFR (MDRD) Amer 80 mL/min >60 [facility] Comment on above: GFR Calc Estimated GFR (MDRD) Non-Af Amer 66 mL/min >60 [facility] Comment on above: Non- GFR Calc Platelets bldOrdered By: ED PROVIDER on 08-05-2022 Platelets (Bld) [#/Vol] 326 10*3/uL 150-450 [facility] Serum or plasma albumin jojo urement (mass/volume)Ordered By: ED PROVIDER on 08-05-2022 Albumin [Mass/Vol] 3.5 g/dL 3.2-5.0 [facility] Serum or plasma albumin/glob ulin mass ratioOrdered By: ED PROVIDER on 08-05-2022 Albumin/Globulin [Mass ratio] 0.8 {ratio} 0.9-2.4 [facility] Serum or plasma calcium jojo urement (mass/volume)Ordered By: ED PROVIDER on 08-05-2022 Calcium [Mass/Vol] 9.5 mg/dL 8.5-10.1 [facility] Serum or plasma creatinine m easurement (mass/volume)Ordered By: ED PROVIDER on 08-05-2022 Creatinine [Mass/Vol] 0.89 mg/dL 0.55-1.02 [facility] Comment on above: The validity of the calculated GFR & GFRAA in patients over 70 years has not been determined. Clinical correlation is essential. Serum or plasma urea nitroge n measurement (mass/volume)Ordered By: ED PROVIDER on 08-05-2022 Urea nitrogen [Mass/Vol] 15 mg/dL 7-18 [facility] Thin prep Papanicolaou smear with manual screeningOrdered By: ED PROVIDER on 08-05-2022 Thin prep Papanicolaou smear with manual screening 23 U/L 15-37 [facility] Thin prep Papanicolaou smear with manual screening 6 5-15 [facility] Absolute lymphocyte countOrd ered By: Dr. Bernabe on 05-06-2022 Lymphocytes Auto (Unsp spec) [#/Vol] 3.48 10*3/uL 0.83-4.51 [facility] Basophil percentageOrdered B y: Dr. Bernabe on 05-06-2022 Basophils/100 WBC (Bld) 1.0 % 0-1 [facility] Bilirubin [Mass/Vol] 0.60 mg/dL 0.20-1.00 [facility] Comment on above: For patients on eltr ombopag therapy, use of Dimension [place] TBIL is not recommended. Chloride [Moles/Vol] 108 mmol/L 98-107 [facility] Eosinophils/100 WBC (Bld) 9.0 % 0-5 [facility] Glucose [Mass/Vol] 124 mg/dL 74-106 [facility] Comment on above: Fasting Glucose resu lt from 100 to 125 mg/dL suggests IMPAIRED HOMEOSTASIS per A.D.A. criteria. Neutrophils (Bld) [#/Vol] 3.1 10*3/uL 2.0-7.7 [facility] Neutrophils/100 WBC (Bld) 37.9 % 47-70 [facility] Potassium [Moles/Vol] 3.5 mmol/L 3.5-5.1 [facility] Protein [Mass/Vol] 6.4 g/dL 6.4-8.2 [facility] Sodium [Moles/Vol] 141 mmol/L 136-145 [facility] WBC (Bld) [#/Vol] 8.1 10*3/uL 4.4-11.0 [facility] Blood erythrocytes count (nu mber/volume)Ordered By: Dr. Bernabe on 05-06-2022 RBC (Bld) [#/Vol] 4.31 10*6/uL 4.2-5.4 [facility] Blood hemoglobin measurement (mass/volume)Ordered By: Dr. Bernabe on 05-06-2022 Hemoglobin (Bld) [Mass/Vol] 13.2 g/dL 12.0-15. 0 [facility] Blood lymphocytes/100 leukoc ytesOrdered By: Dr. Bernabe on 05-06-2022 Lymphocytes/100 WBC (Bld) 42.9 % 19-41 [facility] Blood monocytes/100 leukocyt esOrdered By: Dr. Bernabe on 05-06-2022 Monocytes/100 WBC (Bld) 9.0 % 0-10 [facility] Blood platelet mean volumeOr dered By: Dr. Bernabe on 05-06-2022 Platelet mean volume (Bld) [Entitic vol] 9.7 fL 6.2-12.0 [facility] Determination of erythrocyte mean corpuscular volume (MCV)Ordered By: Dr. Bernabe on 05-06-2022 MCV (RBC) [Entitic vol] 94.7 fL 81-99 [facility] Hematocrit Auto (Bld) [Volum e fraction]Ordered By: Dr. Bernabe on 05-06-2022 Hematocrit (Bld) [Volume fraction] 40.8 % 37-47 [facility] Laboratory - Chemistry and C hemistry - challengeOrdered By: Dr. Bernabe on 05-06-2022 ALP [Catalytic activity/Vol] 59 U/L 45-117 [facility] ALT [Catalytic activity/Vol] 27 U/L 13-56 [facility] CO2 [Moles/Vol] 26.0 mmol/L 21.0-32.0 [facility] Globulin (S) [Mass/Vol] 3.4 g/dL 2.2-4.2 [facility] Urea nitrogen/Creatinine [Mass ratio] 15.0 mg/mg 10-20 [facility] Laboratory - Hematology and Cell countsOrdered By: Dr. Bernabe on 05-06-2022 Erythrocyte distribution width (RBC) [Entitic vol] 46.9 fL 35.1-43.9 [facility] Erythrocyte distribution width (RBC) [Ratio] 13.4 % 11.6-14.6 [facility] Immature granulocytes/100 WBC (Bld) 0.200 % 0.0-0.9 [facility] Comment on above: IG% - Immature Granu locytes (promyelocytes, myelocytes and metamyelocytes) > 1% indicates that a LEFT SHIFT is Present. MCH (RBC) [Entitic mass] 30.6 pg 27.0-32.0 [facility] Nucleated RBC/100 WBC (Bld) [Ratio] 0 % 0-5 [facility] MCHC Auto (RBC) [Mass/Vol]Or dered By: Dr. Bernabe on 05-06-2022 MCHC (RBC) [Mass/Vol] 32.4 g/dL 32-36 [facility] No Panel InformationOrdered By: Dr. Campos on 05-06-2022 D-Dimer Quantitative (PE/DVT) 0.50 FEU/ug/m 0.27-0.49 [facility] Comment on above: D-Dimer ELEVATED (>0 .49): Additional studies and clinicalassessments are indicated to conclude diagnosis of:Deep Vein Thrombosis (DVT) or Pulmonary Embolism (PE)CRITICAL VALUE VERIFIED. CALLED TO AATOOITRSRD03/20/23 1101 Tessie Andrade.RESULTS READ BACK BY SAME . Thyroid Stimulating Hormone (TSH) 4.36 uIU/mL 0.358-3.74 [facility] No Panel InformationOrdered By: Dr. Bernabe on 05-06-2022 Estimated Creatinine Clearance Calc 54.89 ml/min [facility] Estimated GFR (MDRD) Amer 91 mL/min >60 [facility] Comment on above: GFR Calc Estimated GFR (MDRD) Non-Af Amer 75 mL/min >60 [facility] Comment on above: Non- GFR Calc Platelets bldOrdered By: Dr. Bernabe on 05-06-2022 Platelets (Bld) [#/Vol] 293 10*3/uL 150-450 [facility] Serum or plasma albumin jojo urement (mass/volume)Ordered By: Dr. Bernabe on 05-06-2022 Albumin [Mass/Vol] 3.0 g/dL 3.2-5.0 [facility] Serum or plasma albumin/glob ulin mass ratioOrdered By: Dr. Bernabe on 05-06-2022 Albumin/Globulin [Mass ratio] 0.9 {ratio} 0.9-2.4 [facility] Serum or plasma calcium jojo urement (mass/volume)Ordered By: Dr. Bernabe on 05-06-2022 Calcium [Mass/Vol] 8.6 mg/dL 8.5-10.1 [facility] Serum or plasma creatinine m easurement (mass/volume)Ordered By: Dr. Bernabe on 05-06-2022 Creatinine [Mass/Vol] 0.80 mg/dL 0.55-1.02 [facility] Comment on above: The validity of the calculated GFR & GFRAA in patients over 70 years has not been determined. Clinical correlation is essential. Serum or plasma urea nitroge n measurement (mass/volume)Ordered By: Dr. Bernabe on 05-06-2022 Urea nitrogen [Mass/Vol] 12 mg/dL 7-18 [facility] Thin prep Papanicolaou smear with manual screeningOrdered By: Dr. Bernabe on 05-06-2022 Thin prep Papanicolaou smear with manual screening 22 U/L 15-37 [facility] Thin prep Papanicolaou smear with manual screening 7 5-15 [facility] Absolute lymphocyte countOrd ered By: La Nena Collazo on 05-05-2022 Lymphocytes Auto (Unsp spec) [#/Vol] 2.27 10*3/uL 0.83-4.51 [facility] Basophil percentageOrdered B y: La Nena Collazo on 05-05-2022 Basophil percentage 0-5 SEEN /hpf 0-5 [facility] Basophils/100 WBC (Bld) 0.9 % 0-1 [facility] Chloride [Moles/Vol] 105 mmol/L 98-107 [facility] Eosinophils/100 WBC (Bld) 4.8 % 0-5 [facility] Glucose [Mass/Vol] 183 mg/dL 74-106 [facility] Comment on above: Fasting Glucose resu lt greater than or equal to 126 mg/dL suggests DIABETES MELLITUS per A.D.A. criteria. Neutrophils (Bld) [#/Vol] 6.8 10*3/uL 2.0-7.7 [facility] Neutrophils/100 WBC (Bld) 65.4 % 47-70 [facility] Potassium [Moles/Vol] 3.9 mmol/L 3.5-5.1 [facility] Sodium [Moles/Vol] 137 mmol/L 136-145 [facility] WBC (Bld) [#/Vol] 10.4 10*3/uL 4.4-11.0 [facility] Bilirubin Test strip Ql (U)O rdered By: La Nena Collazo on 05-05-2022 Bilirubin Ql (U) Negative Negative [facility] Blood erythrocytes count (nu mber/volume)Ordered By: La Nena Collazo on 05-05-2022 RBC (Bld) [#/Vol] 4.66 10*6/uL 4.2-5.4 [facility] Blood hemoglobin measurement (mass/volume)Ordered By: La Nena Collazo on 05-05-2022 Hemoglobin (Bld) [Mass/Vol] 14.3 g/dL 12.0-15. 0 [facility] Blood lymphocytes/100 leukoc ytesOrdered By: La Nena Collazo on 05-05-2022 Lymphocytes/100 WBC (Bld) 21.7 % 19-41 [facility] Blood monocytes/100 leukocyt esOrdered By: La Nena Collazo on 05-05-2022 Monocytes/100 WBC (Bld) 6.9 % 0-10 [facility] Blood platelet mean volumeOr dered By: La Nena Collazo on 05-05-2022 Platelet mean volume (Bld) [Entitic vol] 9.4 fL 6.2-12.0 [facility] Determination of erythrocyte mean corpuscular volume (MCV)Ordered By: La Nena Collazo on 05-05-2022 MCV (RBC) [Entitic vol] 93.6 fL 81-99 [facility] Hematocrit Auto (Bld) [Volum e fraction]Ordered By: La Nena Collazo on 05-05-2022 Hematocrit (Bld) [Volume fraction] 43.6 % 37-47 [facility] Ketones Test strip Ql (U)Ord ered By: La Nena Collazo on 05-05-2022 Ketones Ql (U) Negative Negative [facility] Laboratory - Chemistry and C hemistry - challengeOrdered By: La Nena Collazo on 05-05-2022 CK [Catalytic activity/Vol] 186 U/L 26-192 [facility] CO2 [Moles/Vol] 25.0 mmol/L 21.0-32.0 [facility] Urea nitrogen/Creatinine [Mass ratio] 21.5 mg/mg 10-20 [facility] Laboratory - Hematology and Cell countsOrdered By: La Nena Collazo on 05-05-2022 Erythrocyte distribution width (RBC) [Entitic vol] 45.6 fL 35.1-43.9 [facility] Erythrocyte distribution width (RBC) [Ratio] 13.3 % 11.6-14.6 [facility] Immature granulocytes/100 WBC (Bld) 0.300 % 0.0-0.9 [facility] Comment on above: IG% - Immature Granu locytes (promyelocytes, myelocytes and metamyelocytes) > 1% indicates that a LEFT SHIFT is Present. MCH (RBC) [Entitic mass] 30.7 pg 27.0-32.0 [facility] Nucleated RBC/100 WBC (Bld) [Ratio] 0 % 0-5 [facility] MCHC Auto (RBC) [Mass/Vol]Or dered By: La Nena Collazo on 05-05-2022 MCHC (RBC) [Mass/Vol] 32.8 g/dL 32-36 [facility] Mucus LM Ql (Urine sed)Order ed By: La Nena Collazo on 05-05-2022 Mucus Ql (Urine sed) 0 SEEN /hpf [facility] Nitrite Test strip Ql (U)Ord ered By: La Nena Collazo on 05-05-2022 Nitrite Ql (U) Negative Negative [facility] No Panel InformationOrdered By: La Nena Collazo on 05-05-2022 Troponin I High Sensitivity 4 pg/mL 3.0-54.0 [facility] Comment on above: Please Note: New Ariella t Units and Gender Specific Reference Ranges. For more information see Policy Stat Procedure [place] High Sensitivity Troponin (TNIH) and attachments. Estimated Creatinine Clearance Calc 44.81 ml/min [facility] Estimated GFR (MDRD) Amer 72 mL/min >60 [facility] Comment on above: GFR Calc Estimated GFR (MDRD) Non-Af Amer 59 mL/min >60 [facility] Comment on above: Non- GFR Calc Platelets bldOrdered By: Smita Collazo on 05-05-2022 Platelets (Bld) [#/Vol] 310 10*3/uL 150-450 [facility] Protein Test strip Ql (U)Ord ered By: La Nena Colalzo on 05-05-2022 Protein Ql (U) Negative Negative [facility] Serum or plasma calcium jojo urement (mass/volume)Ordered By: La Nena Collazo on 05-05-2022 Calcium [Mass/Vol] 9.2 mg/dL 8.5-10.1 [facility] Serum or plasma creatinine m easurement (mass/volume)Ordered By: La Nena Collazo on 05-05-2022 Creatinine [Mass/Vol] 0.98 mg/dL 0.55-1.02 [facility] Comment on above: The validity of the calculated GFR & GFRAA in patients over 70 years has not been determined. Clinical correlation is essential. Serum or plasma urea nitroge n measurement (mass/volume)Ordered By: La Nena Collazo on 05-05-2022 Urea nitrogen [Mass/Vol] 21 mg/dL 7-18 [facility] Squamous epithelial cells de tection in urine sediment by light microscopyOrdered By: La Nena Collazo on 05-05-2022 Epithelial cells.squamous LM Ql (Urine sed) 0-5 SEEN /hpf 5-10 [facility] Thin prep Papanicolaou smear with manual screeningOrdered By: La Nena Collazo on 05-05-2022 Thin prep Papanicolaou smear with manual screening 7 5-15 [facility] Urine blood detectionOrdered By: La Nena Collazo on 05-05-2022 RBC Ql (U) Negative Negative [facility] RBC Ql (U) 0 SEEN /hpf 0-5 [facility] Urine clarityOrdered By: Smita Collazo on 05-05-2022 Clarity (U) Clear Clear [facility] Urine color determinationOrd ered By: La Nena Collazo on 05-05-2022 Color (U) Straw Yellow [facility] Urine glucose detectionOrder ed By: La Nena Collazo on 05-05-2022 Glucose Ql (U) Normal mg/dl Normal [facility] Urine leukocyte esterase det ection by dipstickOrdered By: La Nena Colalzo on 05-05-2022 Leukocyte esterase Test strip Ql (U) 25 /ul Negative [facility] Urine pHOrdered By: La Nena ramos on 05-05-2022 pH (U) 6.0 [pH] 5.0 - 8.0 [facility] Urine sediment bacteria coun t by microscopy (number/high power field)Ordered By: La Nena Collazo on 05-05-2022 Bacteria LM.HPF (Urine sed) [#/Area] 0 /[HPF] None Seen [facility] Urine specific gravity measu rementOrdered By: La Nena Collazo on 05-05-2022 Specific gravity (U) [Rel density] 1.010 1.002-1.030 [facility] Urobilinogen Auto test strip Ql (U)Ordered By: La Nena Collazo on 05-05-2022 Urobilinogen Ql (U) Normal mg/dl Normal [facility] Absolute lymphocyte countOrd ered By: Dr. Alatorre on 04-24-2022 Lymphocytes Auto (Unsp spec) [#/Vol] 3.87 10*3/uL 0.83-4.51 [facility] Basophil percentageOrdered B y: Dr. Alatorre on 04-24-2022 Basophils/100 WBC (Bld) 0.9 % 0-1 [facility] Chloride [Moles/Vol] 107 mmol/L 98-107 [facility] Eosinophils/100 WBC (Bld) 6.8 % 0-5 [facility] Glucose [Mass/Vol] 104 mg/dL 74-106 [facility] Comment on above: Fasting Glucose resu lt from 100 to 125 mg/dL suggests IMPAIRED HOMEOSTASIS per A.D.A. criteria. Neutrophils (Bld) [#/Vol] 5.5 10*3/uL 2.0-7.7 [facility] Neutrophils/100 WBC (Bld) 49.5 % 47-70 [facility] Potassium [Moles/Vol] 3.8 mmol/L 3.5-5.1 [facility] Sodium [Moles/Vol] 142 mmol/L 136-145 [facility] WBC (Bld) [#/Vol] 11.1 10*3/uL 4.4-11.0 [facility] Blood erythrocytes count (nu mber/volume)Ordered By: Dr. Alatorre on 04-24-2022 RBC (Bld) [#/Vol] 4.79 10*6/uL 4.2-5.4 [facility] Blood hemoglobin measurement (mass/volume)Ordered By: Dr. Alatorre on 04-24-2022 Hemoglobin (Bld) [Mass/Vol] 14.5 g/dL 12.0-15. 0 [facility] Blood lymphocytes/100 leukoc ytesOrdered By: Dr. Alatorre on 04-24-2022 Lymphocytes/100 WBC (Bld) 34.8 % 19-41 [facility] Blood monocytes/100 leukocyt esOrdered By: Dr. Alatorre on 04-24-2022 Monocytes/100 WBC (Bld) 7.7 % 0-10 [facility] Blood platelet mean volumeOr dered By: Dr. Alatorre on 04-24-2022 Platelet mean volume (Bld) [Entitic vol] 9.5 fL 6.2-12.0 [facility] Determination of erythrocyte mean corpuscular volume (MCV)Ordered By: Dr. Alatorre on 04-24-2022 MCV (RBC) [Entitic vol] 94.8 fL 81-99 [facility] Hematocrit Auto (Bld) [Volum e fraction]Ordered By: Dr. Alatorre on 04-24-2022 Hematocrit (Bld) [Volume fraction] 45.4 % 37-47 [facility] - Chemistry and C hemistry - challengeOrdered By: Dr. Alatorre on 04-24-2022 CO2 [Moles/Vol] 29.0 mmol/L 21.0-32.0 [facility] Urea nitrogen/Creatinine [Mass ratio] 20.2 mg/mg 10-20 [facility] - Hematology and Cell countsOrdered By: Dr. Alatorre on 04-24-2022 Erythrocyte distribution width (RBC) [Entitic vol] 46.0 fL 35.1-43.9 [facility] Erythrocyte distribution width (RBC) [Ratio] 13.2 % 11.6-14.6 [facility] Immature granulocytes/100 WBC (Bld) 0.300 % 0.0-0.9 [facility] Comment on above: IG% - Immature Granu locytes (promyelocytes, myelocytes and metamyelocytes) > 1% indicates that a LEFT SHIFT is Present. MCH (RBC) [Entitic mass] 30.3 pg 27.0-32.0 [facility] Nucleated RBC/100 WBC (Bld) [Ratio] 0 % 0-5 [facility] MCHC Auto (RBC) [Mass/Vol]Or dered By: Dr. Alatorre on 04-24-2022 MCHC (RBC) [Mass/Vol] 31.9 g/dL 32-36 [facility] No Panel InformationOrdered By: Dr. Alatorre on 04-24-2022 Estimated Creatinine Clearance Calc 43.91 ml/min [facility] Estimated GFR (MDRD) Amer 92 mL/min >60 [facility] Comment on above: GFR Calc Estimated GFR (MDRD) Non-Af Amer 76 mL/min >60 [facility] Comment on above: Non- GFR Calc Platelets bldOrdered By: Dr. Alatorre on 04-24-2022 Platelets (Bld) [#/Vol] 319 10*3/uL 150-450 [facility] Serum or plasma calcium jojo urement (mass/volume)Ordered By: Dr. Alatorre on 04-24-2022 Calcium [Mass/Vol] 9.3 mg/dL 8.5-10.1 [facility] Serum or plasma creatinine m easurement (mass/volume)Ordered By: Dr. Alatorre on 04-24-2022 Creatinine [Mass/Vol] 0.79 mg/dL 0.55-1.02 [facility] Comment on above: The validity of the calculated GFR & GFRAA in patients over 70 years has not been determined. Clinical correlation is essential. Serum or plasma urea nitroge n measurement (mass/volume)Ordered By: Dr. Alatorre on 04-24-2022 Urea nitrogen [Mass/Vol] 16 mg/dL 7-18 [facility] Thin prep Papanicolaou smear with manual screeningOrdered By: Dr. Alatorre on 04-24-2022 Thin prep Papanicolaou smear with manual screening 6 5-15 [facility] T3 FREE BLDon 10-13-2021 Free T3 [Mass/Vol] 3.1 pg/mL 2.3 - 4.1 pg/mL [facility] T4 FREE/FREE THYROXon 2021 Free T4 [Mass/Vol] 1.4 ng/dL 0.9 - 1.7 ng/dL [facility] TSH [facility] 10-13-2021 TSH Qn 1.750 m[IU]/L 0.270 - 4.200 mIU/L [facility] XR Shoulder - right 3 Viewso n 12-15-2020 IMPRESSION: 1. Degenerative changes 2. Question of a Hill-Sachs deformity of the humeral head Offset Machine Operator: TAMIKO Transcribe Date/Time: Dec 15 2020 2:27P Dictated by : KHADIJAH SHEEHAN DO This examination was interpreted and the report reviewed and electronically signed by: KHADIJAH SHEEHAN DO on Dec 15 2020 2:29PM [facility] DIVISION OF RADIOLOGY * * [...] seen. DIVISION OF RADIOLOGY Provider, Timbo Irvin [facility] - 12/15/2020 * * *Final Report* [...] a Hill-Sachs deformity of the humeral head Offset Machine Operator: TAMIKO Transcribe Date/Time: Dec 15 2020 2:27P Dictated by : KHADIJAH SHEEHAN DO This examination was interpreted and the report reviewed and electronically signed by: KHADIJAH SHEEHAN DO on Dec 15 2020 2:29PM EST [facility] Radiology Study observation (narrative) [facility] - right 3 ViewsO rdered By: [facility] Provider on 12-15-2020 [facility] XR Hand - right PA and Later al and Obliqueon 08-30-2020 IMPRESSION: No acute osseous abnormality. Mild degenerative change. Offset Machine Operator: TAMIKO Transcribe Date/Time: Aug 30 2020 2:37P [...] the ulnar styloid. DIVISION OF RADIOLOGY Provider, [facility] - 08/30/2020 * * *Final Report* * [...] No acute osseous abnormality. Mild degenerative change. Offset Machine Operator: TAMIKO Transcribe Date/Time: Aug 30 2020 2:37P Dictated by : LASHAE SINGH DO This examination was interpreted and the report reviewed and electronically signed by: LASHAE SINGH DO on Aug 30 2020 2:40PM EST [facility] Radiology Study observation (narrative) [facility] XR Hand - right PA and Later al and ObliqueOrdered By: [facility] Provider on 08-30-2020 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 Postsurgical change. No complication. Offset Machine Operator: TAMIKO Transcribe Date/Time: Jul 11 2020 1:24P Dictated by : ISABELA ORTEZ MD This examination was interpreted and the report reviewed and electronically signed by: ISABELA ORTEZ MD on Jul 11 2020 1:26PM [facility] DIVISION OF RADIOLOGY Radiology Study observation (narrative) [facility] No Panel InformationOrdered By: [facility] Provider on 07-11-2020 [facility] XR Lumbar spine 3 Viewson * [...] the thoracolumbar spine. Postsurgical change. No complication. Offset Machine Operator: PSCB Transcribe Date/Time: Jul 11 2020 1:24P Dictated by : ISABELA ORTEZ MD This examination was interpreted and the report reviewed and electronically signed by: ISABELA ORTEZ MD on Jul 11 2020 1:26PM [facility] XR Thoracic spine AP and Lat [...] unremarkable in appearance. DIVISION OF RADIOLOGY Provider, [facility] - 07/11/2020 * * *Final Report* [...] the thoracolumbar spine. Postsurgical change. No complication. Offset Machine Operator: TAMIKO Transcribe Date/Time: Jul 11 2020 1:24P Dictated by : ISABELA ORTEZ MD This examination was interpreted and the report reviewed and electronically signed by: ISABELA ORTEZ MD on Jul 11 2020 1:26PM EST [facility] Vital Signs Date Time Vital Sign Value Performing Clinician Facility 01-14-2025 01:47-0400 Body temperature 98 [degF] Dr. Paulo Scott MD Work Phone: 2(238)088-889106 [place] [address] 01-14-2025 01:47-0400 Diastolic blood pressure 87 mm[Hg] Dr. Paulo Scott MD Work Phone: 4(470)973-316006 [place] [address] 01-14-2025 01:47-0400 Heart rate 75 /min Dr. Paulo Scott MD Work Phone: 7(416)630-382506 [place] [address] 01-14-2025 01:47-0400 Respiratory rate 18 /min Dr. Paulo Scott MD Work Phone: 9(837)404-712506 [place] [address] 01-14-2025 01:47-0400 SaO2% (BldA) [Mass fraction] 98 % Dr. Paulo Scott MD Work Phone: 1(342)770-157206 [place] [address] 01-14-2025 01:47-0400 Systolic blood pressure 146 mm[Hg] Dr. Paulo Scott MD Work Phone: 9(113)219-397606 [place] [address] 01-13-2025 23:17-0400 Body height 162.[address] Paulo Scott MD Work Phone: 1(684)865-794706 [place] [address] 01-13-2025 23:17-0400 Body mass index (BMI) [Ratio] 33.9 kg/m2 Dr. Paulo Scott MD Work Phone: 9(226)125-547206 [place] [address] 01-13-2025 23:17-0400 Body weight 89.[address] Paulo Scott MD Work Phone: 8(881)221-514306 [place] [address] 01-03-2025 15:44-0400 Heart rate 82 /min Dr. Paulo Scott MD Work Phone: 9(925)140-179006 [place] [address] 01-03-2025 15:44-0400 Respiratory rate 18 /min Dr. Pualo Scott MD Work Phone: 2(955)037-927206 [place] [address] 01-03-2025 14:41-0400 Inhaled oxygen flow rate 2 L/min Dr. Paulo Scott MD Work Phone: 1(797)589-959406 [place] [address] 01-03-2025 14:30-0400 Body temperature 97.3 [degF] Dr. Paulo Scott MD Work Phone: 6(932)169-699306 [place] [address] 01-03-2025 14:30-0400 Diastolic blood pressure 86 mm[Hg] Dr. Paulo Scott MD Work Phone: 8(378)404-966706 [place] [address] 01-03-2025 14:30-0400 SaO2% (BldA) [Mass fraction] 99 % Dr. Paulo Scott MD Work Phone: 6(496)912-420106 [place] [address] 01-03-2025 14:30-0400 Systolic blood pressure 126 mm[Hg] Dr. Paulo Scott MD Work Phone: 7(101)130-891406 [place] [address] 01-03-2025 08:52-0400 Body mass index (BMI) [Ratio] 34.1 kg/m2 Dr. Paulo Scott MD Work Phone: 2(064)597-119106 [place] [address] 01-03-2025 08:52-0400 Body weight 90.[address] Paulo Scott MD Work Phone: 4(120)430-744506 [place] [address] 12-30-2024 15:33-0400 Body height 162.[address] Paulo Scott MD Work Phone: 6(108)146-081106 [place] [address] 12-05-2024 16:16-0400 Body temperature 98.2 [degF] Dr. Paulo Scott MD Work Phone: 4(600)587-867806 [place] [address] 12-05-2024 16:16-0400 Diastolic blood pressure 81 mm[Hg] Dr. Paulo Scott MD Work Phone: 1(067)359-803106 [place] [address] 12-05-2024 16:16-0400 Heart rate 82 /min Dr. Paulo Scott MD Work Phone: 5(424)638-150306 [place] [address] 12-05-2024 16:16-0400 Respiratory rate 16 /min Dr. Paulo Scott MD Work Phone: 6(755)283-964306 [place] [address] 12-05-2024 16:16-0400 SaO2% (BldA) [Mass fraction] 96 % Dr. Paulo Scott MD Work Phone: 4(878)812-612806 [place] [address] 12-05-2024 16:16-0400 Systolic blood pressure 128 mm[Hg] Dr. Paulo Scott MD Work Phone: 0(692)344-056106 [place] [address] 12-05-2024 12:29-0400 Body height 162.[address] Paulo Scott MD Work Phone: 7(797)337-710106 [place] [address] 12-05-2024 12:29-0400 Body mass index (BMI) [Ratio] 36.5 kg/m2 Dr. Paulo Scott MD Work Phone: 4(791)291-909606 [place] [address] 12-05-2024 12:29-0400 Body weight 96.[address] Paulo Scott MD Work Phone: 5(332)552-902506 [place] [address] 10-15-2024 10:09-0400 Body height 162.[address] Paulo Scott MD Work Phone: 3(372)865-295506 [place] [address] 10-15-2024 10:09-0400 Body mass index (BMI) [Ratio] 35.2 kg/m2 Dr. Paulo Scott MD Work Phone: 0(428)519-163506 [place] [address] 10-15-2024 10:09-0400 Body weight 92.[address] Paulo Scott MD Work Phone: 0(252)662-531506 [place] [address] 10-15-2024 10:09-0400 Diastolic blood pressure 87 mm[Hg] Dr. Paulo Scott MD Work Phone: 9(919)761-155506 [place] [address] 10-15-2024 10:09-0400 Heart rate 73 /min Dr. Paulo Scott MD Work Phone: 1(230)182-593406 [place] [address] 10-15-2024 10:09-0400 Respiratory rate 18 /min Dr. Paulo Scott MD Work Phone: 1(451)890-298506 [place] [address] 10-15-2024 10:09-0400 SaO2% (BldA) [Mass fraction] 94 % Dr. Paulo Scott MD Work Phone: [facility] 10-15-2024 10:09-0400 Systolic blood pressure 128 mm[Hg] Dr. Paulo Scott MD Work Phone: [facility] 09-24-2024 10:50-0400 Diastolic blood pressure 78 mm[Hg] Norman Sumeet [employer] Work Phone: [facility] 09-24-2024 10:50-0400 Systolic blood pressure 136 mm[Hg] Norman Sumeet [employer] Work Phone: [facility] 09-24-2024 10:47-0400 Body mass index (BMI) [Ratio] 35.19 kg/m2 Norman Sumeet [employer] Work Phone: [facility] 09-24-2024 10:47-0400 Body weight 93 kg Norman Sumeet [employer] Work Phone: [facility] 09-24-2024 10:47-0400 Heart rate 77 /min Norman Sumeet [employer] Work Phone: [facility] 09-24-2024 10:47-0400 Respiratory rate 16 /min Norman Sumeet [employer] Work Phone: [facility] 08-22-2024 15:25-0400 Body mass index (BMI) [Ratio] 36.3 kg/m2 Dr. Paulo Scott MD Work Phone: [facility] 08-22-2024 15:25-0400 Body weight 96.[address] Paulo Scott MD Work Phone: 8(531)237-650859 [place] [address] 08-22-2024 15:18-0400 Body height 162.[address] Paulo Scott MD Work Phone: 0(386)411-948959 [place] [address] 08-22-2024 15:18-0400 Body temperature 98.4 [degF] Dr. Paulo Scott MD Work Phone: 8(316)145-711159 [place] [address] 08-22-2024 15:18-0400 Diastolic blood pressure 77 mm[Hg] Dr. Paulo Scott MD Work Phone: [facility] 08-22-2024 15:18-0400 Heart rate 78 /min Dr. Paulo Scott MD Work Phone: [facility] 08-22-2024 15:18-0400 Respiratory rate 17 /min Dr. Paulo Scott MD Work Phone: [facility] 08-22-2024 15:18-0400 SaO2% (BldA) [Mass fraction] 97 % Dr. Paulo Scott MD Work Phone: [facility] 08-22-2024 15:18-0400 Systolic blood pressure 154 mm[Hg] Dr. Paulo Scott MD Work Phone: [facility] 05-21-2024 13:40-0500 Body mass index (BMI) [Ratio] 34.81 kg/m2 Juan Rodriguez [employer] Work Phone: [facility] 05-21-2024 13:40-0500 Body weight 92 kg Jaun Rodriguez [employer] Work Phone: [facility] 05-21-2024 13:40-0500 Diastolic blood pressure 82 mm[Hg] Juan Rodriguez [employer] Work Phone: [facility] 05-21-2024 13:40-0500 Heart rate 76 /min Juan Rodriguez [employer] Work Phone: [facility] 05-21-2024 13:40-0500 Respiratory rate 16 /min Juan Rodriguez [employer] Work Phone: [facility] 05-21-2024 13:40-0500 Systolic blood pressure 128 mm[Hg] Juan Rodriguez [employer] Work Phone: [facility] 04-08-2024 11:36-0500 Diastolic blood pressure 84 mm[Hg] Dr. Paulo Scott MD Work Phone: [facility] 04-08-2024 11:36-0500 Heart rate 78 /min Dr. Paulo Scott MD Work Phone: 1(721)203-188359 [place] [address] 04-08-2024 11:36-0500 Respiratory rate 18 /min Dr. Paulo Scott MD Work Phone: 2(325)914-057706 [place] [address] 04-08-2024 11:36-0500 SaO2% (BldA) [Mass fraction] 96 % Dr. Paulo Scott MD Work Phone: 3(825)358-542206 [place] [address] 04-08-2024 11:36-0500 Systolic blood pressure 168 mm[Hg] Dr. Paulo Scott MD Work Phone: 2(982)059-639806 [place] [address] 04-08-2024 09:50-0500 Body height 162.[address] Paulo Scott MD Work Phone: 9(367)300-014206 [place] [address] 04-08-2024 09:50-0500 Body mass index (BMI) [Ratio] 34.3 kg/m2 Dr. Paulo Scott MD Work Phone: 6(692)892-022006 [place] [address] 04-08-2024 09:50-0500 Body weight 90.[address] Paulo Scott MD Work Phone: 0(266)474-169506 [place] [address] 03-12-2024 10:36-0500 Body mass index (BMI) [Ratio] 34.8 kg/m2 Dr. Paulo Scott MD Work Phone: 1(278)781-366459 [place] [address] 03-12-2024 10:36-0500 Body weight 92.[address] Paulo Scott MD Work Phone: 7(858)161-747206 [place] [address] 01-23-2024 13:14-0500 Body mass index (BMI) [Ratio] 34.21 kg/m2 Norman Sumeet [employer] Work Phone: [facility] 01-23-2024 13:14-0500 Body temperature 97 [degF] Norman Pyler [employer] Work Phone: [facility] 01-23-2024 13:14-0500 Body weight 90.4 kg Norman Garcia [employer] Work Phone: [facility] 01-23-2024 13:14-0500 Diastolic blood pressure 78 mm[Hg] Norman Sumeet [employer] Work Phone: [facility] 01-23-2024 13:14-0500 Heart rate 80 /min Norman Sumeet [employer] Work Phone: [facility] 01-23-2024 13:14-0500 SaO2% (BldA) [Mass fraction] 97 % Norman Sumeet [employer] Work Phone: [facility] 01-23-2024 13:14-0500 Systolic blood pressure 128 mm[Hg] Norman Sumeet [employer] Work Phone: [facility] 10-17-2023 10:10-0400 Body height 162.6 cm Juan Rodriguez [employer] Work Phone: [facility] 10-17-2023 10:10-0400 Body mass index (BMI) [Ratio] 33.04 kg/m2 Juan Rodriguez [employer] Work Phone: [facility] 10-17-2023 10:10-0400 Body weight 87.3 kg Juan Rodriguez [employer] Work Phone: [facility] 10-17-2023 10:10-0400 Diastolic blood pressure 66 mm[Hg] Juan Rodriguez [employer] Work Phone: [facility] 10-17-2023 10:10-0400 Heart rate 83 /min Juan Rodriguez [employer] Work Phone: [facility] 10-17-2023 10:10-0400 Respiratory rate 14 /min Juan Rodriguez [employer] Work Phone: [facility] 10-17-2023 10:10-0400 SaO2% (BldA) [Mass fraction] 95 % Juan Rodriguez [employer] Work Phone: [facility] 10-17-2023 10:10-0400 Systolic blood pressure 128 mm[Hg] Juan Rodriguez [employer] Work Phone: [facility] 09-17-2023 13:45-0400 Body mass index (BMI) [Ratio] 32.79 kg/m2 Paulo Scott MD Work Phone: [facility] 09-17-2023 13:45-0400 Body temperature 98.4 [degF] Paulo Scott MD Work Phone: [facility] 09-17-2023 13:45-0400 Body weight 86.64 kg Paulo Scott MD Work Phone: [facility] 09-17-2023 13:45-0400 Diastolic blood pressure 78 mm[Hg] Paulo Scott MD Work Phone: [facility] 09-17-2023 13:45-0400 Heart rate 87 /min Paulo Scott MD Work Phone: [facility] 09-17-2023 13:45-0400 Respiratory rate 18 /min Paulo Scott MD Work Phone: [facility] 09-17-2023 13:45-0400 SaO2% (BldA) [Mass fraction] 97 % Paulo Scott MD Work Phone: [facility] 09-17-2023 13:45-0400 Systolic blood pressure 128 mm[Hg] Paulo Scott MD Work Phone: [facility] 07-22-2023 16:17-0400 Body mass index (BMI) [Ratio] 33 kg/m2 Krislyn Aberegg PA Work Phone: [facility] 07-22-2023 16:17-0400 Body temperature 99.19 [degF] Krislyn Aberegg PA Work Phone: [facility] 07-22-2023 16:17-0400 Body weight 87.2 kg Krislyn Aberegg PA Work Phone: [facility] 07-22-2023 16:17-0400 Diastolic blood pressure 90 mm[Hg] Krislyn Aberegg PA Work Phone: [facility] 07-22-2023 16:17-0400 Heart rate 102 /min Krislyn Aberegg PA Work Phone: [facility] 07-22-2023 16:17-0400 Respiratory rate 18 /min Krislyn Aberegg PA Work Phone: [facility] 07-22-2023 16:17-0400 SaO2% (BldA) [Mass fraction] 96 % Krislyn Aberegg PA Work Phone: [facility] 07-22-2023 16:17-0400 Systolic blood pressure 144 mm[Hg] Krislyn Aberegg PA Work Phone: [facility] 07-04-2023 10:56-0400 Body height 162.6 cm Norman Sumeet [employer] Work Phone: [facility] 07-04-2023 10:56-0400 Body temperature 98.91 [degF] Norman Sumeet [employer] Work Phone: [facility] 07-04-2023 10:56-0400 Body weight 85.28 kg Norman Sumeet [employer] Work Phone: [facility] 07-04-2023 10:56-0400 Diastolic blood pressure 70 mm[Hg] Norman Sumeet [employer] Work Phone: [facility] 07-04-2023 10:56-0400 Heart rate 88 /min Norman Sumeet [employer] Work Phone: [facility] 07-04-2023 10:56-0400 Respiratory rate 14 /min Norman Sumeet [employer] Work Phone: [facility] 07-04-2023 10:56-0400 SaO2% (BldA) [Mass fraction] 96 % Norman Sumeet [employer] Work Phone: [facility] 07-04-2023 10:56-0400 Systolic blood pressure 136 mm[Hg] Norman Sumeet [employer] Work Phone: 9(252)524-384373 [place] [address] 06-19-2023 14:00-0400 Body temperature 97.6 [degF] Dr. Paulo Scott Work Phone: 0(533)614-409359 [place] [address] 06-19-2023 14:00-0400 Diastolic blood pressure 66 mm[Hg] Dr. Paulo Scott Work Phone: 1(811)037-506859 [place] [address] 06-19-2023 14:00-0400 Heart rate 78 /min Dr. Paulo Scott Work Phone: 5(824)968-102159 [place] [address] 06-19-2023 14:00-0400 Respiratory rate 16 /min Dr. Paulo Scott Work Phone: 3(522)241-753906 [place] [address] 06-19-2023 14:00-0400 SaO2% (BldA) [Mass fraction] 99 % Dr. Paulo Scott Work Phone: 1(728)316-416306 [place] [address] 06-19-2023 14:00-0400 Systolic blood pressure 130 mm[Hg] Dr. Paulo Scott Work Phone: 5(413)299-231606 [place] [address] 06-19-2023 12:33-0400 Body height 162.[address] Paulo Scott Work Phone: 0(383)332-858906 [place] [address] 04-23-2023 09:17-0500 Body temperature 98.1 [degF] Dr. Paulo Scott Work Phone: 2(710)962-920306 [place] [address] 04-23-2023 09:17-0500 Diastolic blood pressure 74 mm[Hg] Dr. Paulo Scott Work Phone: 8(556)558-912159 [place] [address] 04-23-2023 09:17-0500 Heart rate 64 /min Dr. Paulo Scott Work Phone: 4(467)582-378106 [place] [address] 04-23-2023 09:17-0500 Respiratory rate 18 /min Dr. Paulo Scott Work Phone: 3(794)895-977006 [place] [address] 04-23-2023 09:17-0500 SaO2% (BldA) [Mass fraction] 94 % Dr. Paluo Scott Work Phone: 5(007)233-323859 [place] [address] 04-23-2023 09:17-0500 Systolic blood pressure 117 mm[Hg] Dr. Paulo Scott Work Phone: 4(691)069-170406 [place] [address] 04-23-2023 07:37-0500 Body height 162.[address] Paulo Scott Work Phone: 3(761)021-459206 [place] [address] 04-23-2023 07:37-0500 Body mass index (BMI) [Ratio] 32.5 kg/m2 Dr. Paulo Scott Work Phone: 7(349)574-862006 [place] [address] 04-23-2023 07:37-0500 Body weight [address] Paulo Scott Work Phone: 4(948)447-075706 [place] [address] 04-14-2023 07:13-0500 Body mass index (BMI) [Ratio] 31.9 kg/m2 Dr. Paulo Scott Work Phone: 7(663)063-393206 [place] [address] 04-14-2023 07:13-0500 Body temperature 98 [degF] Dr. Paulo Scott Work Phone: 0(962)330-085606 [place] [address] 04-14-2023 07:13-0500 Body weight 84.[address] Paulo Scott Work Phone: 4(380)090-833006 [place] [address] 04-14-2023 07:13-0500 Diastolic blood pressure 92 mm[Hg] Dr. Paulo Scott Work Phone: 4(981)707-952559 [place] [address] 04-14-2023 07:13-0500 Heart rate 84 /min Dr. Paulo Scott Work Phone: 7(600)803-451406 [place] [address] 04-14-2023 07:13-0500 Respiratory rate 20 /min Dr. Paulo Scott Work Phone: 9(854)761-385159 [place] [address] 04-14-2023 07:13-0500 SaO2% (BldA) [Mass fraction] 94 % Dr. Paulo Scott Work Phone: 5(683)674-706206 [place] [address] 04-14-2023 07:13-0500 Systolic blood pressure 140 mm[Hg] Dr. Paulo Scott Work Phone: [facility] 02-21-2023 14:03-0500 Body height 162.6 cm Juan Rodriguez [employer] Work Phone: [facility] 02-21-2023 14:03-0500 Body weight 87.09 kg Juan Rodriguez [employer] Work Phone: [facility] 02-21-2023 14:03-0500 Diastolic blood pressure 74 mm[Hg] Juan Rodriguez [employer] Work Phone: [facility] 02-21-2023 14:03-0500 Heart rate 81 /min Juan Rodriguez [employer] Work Phone: [facility] 02-21-2023 14:03-0500 SaO2% (BldA) [Mass fraction] 97 % [facility] [employer] Work Phone: [facility] 02-21-2023 14:03-0500 Systolic blood pressure 128 mm[Hg] Juan Rodriguez [employer] Work Phone: [facility] 01-31-2023 14:47-0500 Body mass index (BMI) [Ratio] 32.4 kg/m2 Dr. Paulo Scott Work Phone: [facility] 01-31-2023 14:47-0500 Body weight 85.[address] Paulo Scott Work Phone: [facility] 01-31-2023 14:47-0500 Diastolic blood pressure 84 mm[Hg] Dr. Paulo Scott Work Phone: [facility] 01-31-2023 14:47-0500 Heart rate 78 /min Dr. Paulo Scott Work Phone: [facility] 01-31-2023 14:47-0500 Respiratory rate 18 /min Dr. Paulo Scott Work Phone: [facility] 01-31-2023 14:47-0500 SaO2% (BldA) [Mass fraction] 93 % Dr. Paulo Scott Work Phone: 5(288)937-229859 [place] [address] 01-31-2023 14:47-0500 Systolic blood pressure 134 mm[Hg] Dr. Paulo Scott Work Phone: 1(320)104-333706 [place] [address] 10-02-2022 12:52-0400 Body height 162.[address] Paulo Scott Work Phone: 8(328)103-341906 [place] [address] 10-02-2022 12:52-0400 Body mass index (BMI) [Ratio] 32.5 kg/m2 Dr. Paulo Scott Work Phone: 0(084)330-784206 [place] [address] 10-02-2022 12:52-0400 Body temperature 97.6 [degF] Dr. Paulo Scott Work Phone: 3(462)501-795206 [place] [address] 10-02-2022 12:52-0400 Body weight 86.[address] Paulo Scott Work Phone: 1(732)335-255506 [place] [address] 10-02-2022 12:52-0400 Diastolic blood pressure 80 mm[Hg] Dr. Paulo Scott Work Phone: 1(328)695-341306 [place] [address] 10-02-2022 12:52-0400 Heart rate 70 /min Dr. Paulo Scott Work Phone: 2(801)915-580606 [place] [address] 10-02-2022 12:52-0400 Respiratory rate 18 /min Dr. Paulo Scott Work Phone: 2(571)566-668506 [place] [address] 10-02-2022 12:52-0400 SaO2% (BldA) [Mass fraction] 97 % Dr. Paulo Scott Work Phone: 0(039)688-098106 [place] [address] 10-02-2022 12:52-0400 Systolic blood pressure 140 mm[Hg] Dr. Paulo Scott Work Phone: 3(589)098-837506 [place] [address] 09-19-2022 15:43-0400 Body temperature 97.3 [degF] Ryan Chicas MD Work Phone: 0(010)137-403688 [place] [address] 09-19-2022 15:43-0400 Body weight 88.45 kg Ryan Chicas MD Work Phone: [facility] 09-19-2022 15:43-0400 Diastolic blood pressure 82 mm[Hg] Ryan Chicas MD Work Phone: [facility] 09-19-2022 15:43-0400 Heart rate 85 /min Ryan Chicas MD Work Phone: [facility] 09-19-2022 15:43-0400 Respiratory rate 16 /min Ryan Chicas MD Work Phone: [facility] 09-19-2022 15:43-0400 SaO2% (BldA) [Mass fraction] 97 % Ryan Chicas MD Work Phone: [facility] 09-19-2022 15:43-0400 Systolic blood pressure 128 mm[Hg] Ryan Chicas MD Work Phone: [facility] 08-05-2022 16:22-0400 Diastolic blood pressure 75 mm[Hg] Dr. Paulo Scott Work Phone: [facility] 08-05-2022 16:22-0400 Heart rate 85 /min Dr. Paulo Scott Work Phone: [facility] 08-05-2022 16:22-0400 Respiratory rate 16 /min Dr. Paulo Scott Work Phone: [facility] 08-05-2022 16:22-0400 SaO2% (BldA) [Mass fraction] 93 % Dr. Paulo Scott Work Phone: [facility] 08-05-2022 16:22-0400 Systolic blood pressure 130 mm[Hg] Dr. Paulo Scott Work Phone: [facility] 08-05-2022 11:31-0400 Body mass index (BMI) [Ratio] 33.3 kg/m2 Dr. Paulo Scott Work Phone: [facility] 08-05-2022 11:31-0400 Body temperature 97.9 [degF] Dr. Paulo Scott Work Phone: [facility] 08-05-2022 11:31-0400 Body weight 87.[address] Paulo Scott Work Phone: [facility] 07-26-2022 13:53-0400 Body mass index (BMI) [Ratio] 33.3 kg/m2 Dr. Paulo Scott Work Phone: [facility] 07-26-2022 13:53-0400 Body weight 87.[address] Paulo Scott Work Phone: [facility] 07-26-2022 13:53-0400 Diastolic blood pressure 85 mm[Hg] Dr. Paulo Scott Work Phone: [facility] 07-26-2022 13:53-0400 Heart rate 70 /min Dr. Paulo Scott Work Phone: [facility] 07-26-2022 13:53-0400 Respiratory rate 16 /min Dr. Paulo Scott Work Phone: [facility] 07-26-2022 13:53-0400 Systolic blood pressure 147 mm[Hg] Dr. Paulo Scott Work Phone: [facility] 05-17-2022 14:48-0500 Body temperature 98.71 [degF] Paulo Scott MD Work Phone: [facility] 05-17-2022 14:48-0500 Body weight 88 kg Paulo Scott MD Work Phone: [facility] 05-17-2022 14:48-0500 Diastolic blood pressure 82 mm[Hg] Paulo Scott MD Work Phone: [facility] 05-17-2022 14:48-0500 Heart rate 83 /min Paulo Scott MD Work Phone: [facility] 05-17-2022 14:48-0500 Respiratory rate 18 /min Paulo Scott MD Work Phone: [facility] 05-17-2022 14:48-0500 SaO2% (BldA) [Mass fraction] 97 % Paulo Scott MD Work Phone: [facility] 05-17-2022 14:48-0500 Systolic blood pressure 136 mm[Hg] Paulo Scott MD Work Phone: [facility] 05-06-2022 14:28-0500 Body temperature 98.3 [degF] Dr. Paulo Scott Work Phone: [facility] 05-06-2022 14:28-0500 Diastolic blood pressure 70 mm[Hg] Dr. Paulo Scott Work Phone: [facility] 05-06-2022 14:28-0500 Heart rate 68 /min Dr. Paulo Scott Work Phone: [facility] 05-06-2022 14:28-0500 Inhaled oxygen flow rate 98 L/min Dr. Paulo Scott Work Phone: [facility] 05-06-2022 14:28-0500 Respiratory rate 18 /min Dr. Paulo Scott Work Phone: [facility] 05-06-2022 14:28-0500 SaO2% (BldA) [Mass fraction] 98 % Dr. Paulo Scott Work Phone: [facility] 05-06-2022 14:28-0500 Systolic blood pressure 124 mm[Hg] Dr. Paulo Scott Work Phone: [facility] 05-06-2022 04:35-0500 Body weight 89.[address] Paulo Scott Work Phone: [facility] 05-05-2022 19:36-0500 Body height 162.[address] Paulo Scott Work Phone: [facility] 05-05-2022 19:36-0500 Body mass index (BMI) [Ratio] 34.3 kg/m2 Dr. Paulo Scott Work Phone: [facility] 05-05-2022 19:00-0500 Heart rate 87 /min Dr. Paulo Scott Work Phone: [facility] 05-05-2022 17:42-0500 Body temperature 98.7 [degF] Dr. Paulo Scott Work Phone: [facility] 05-05-2022 17:42-0500 Diastolic blood pressure 77 mm[Hg] Dr. Paulo Scott Work Phone: [facility] 05-05-2022 17:42-0500 Respiratory rate 18 /min Dr. Paulo Scott Work Phone: [facility] 05-05-2022 17:42-0500 SaO2% (BldA) [Mass fraction] 100 % Dr. Paulo Scott Work Phone: [facility] 05-05-2022 17:42-0500 Systolic blood pressure 133 mm[Hg] Dr. Paulo Scott Work Phone: [facility] 05-05-2022 12:41-0500 Body height 162.[address] Paulo Scott Work Phone: [facility] 05-05-2022 12:41-0500 Body mass index (BMI) [Ratio] 33.3 kg/m2 Dr. Paulo Scott Work Phone: [facility] 05-05-2022 12:41-0500 Body weight 87.[address] Paulo Scott Work Phone: [facility] 04-26-2022 09:36-0500 Body weight 88 kg Juan Rodriguez APRN.OVERLOCK HEMMER Work Phone: [facility] 04-26-2022 09:36-0500 Diastolic blood pressure 82 mm[Hg] Juan Rodriguez APRN.OVERLOCK HEMMER Work Phone: [facility] 04-26-2022 09:36-0500 Heart rate 80 /min Juan Rodriguez APRN.OVERLOCK HEMMER Work Phone: [facility] 04-26-2022 09:36-0500 Respiratory rate 16 /min Juan Casass TOBACCO GRADER.OVERLOCK HEMMER Work Phone: [facility] 04-26-2022 09:36-0500 Systolic blood pressure 126 mm[Hg] Juanregi Rodriguez APRN.OVERLOCK HEMMER Work Phone: [facility] 04-24-2022 19:56-0500 Diastolic blood pressure 90 mm[Hg] Dr. Paulo Scott Work Phone: [facility] 04-24-2022 19:56-0500 Heart rate 61 /min Dr. Paulo Scott Work Phone: [facility] 04-24-2022 19:56-0500 Respiratory rate 17 /min Dr. Paulo Scott Work Phone: [facility] 04-24-2022 19:56-0500 SaO2% (BldA) [Mass fraction] 97 % Dr. Paulo Scott Work Phone: [facility] 04-24-2022 19:56-0500 Systolic blood pressure 158 mm[Hg] Dr. Paulo Scott Work Phone: [facility] 04-24-2022 14:37-0500 Body height 162.[address] Paulo Scott Work Phone: [facility] 04-24-2022 14:37-0500 Body mass index (BMI) [Ratio] 34.3 kg/m2 Dr. Paulo Scott Work Phone: [facility] 04-24-2022 14:37-0500 Body temperature 98.3 [degF] Dr. Paulo Scott Work Phone: 3(645)147-931359 [place] [address] 04-24-2022 14:37-0500 Body weight 90.[address] Paulo Scott Work Phone: [facility] 04-03-2022 06:25-0500 Body mass index (BMI) [Ratio] 33.6 kg/m2 Dr. Paulo Scott Work Phone: [facility] 04-03-2022 06:25-0500 Body temperature 98.1 [degF] Dr. Paulo Scott Work Phone: 0(459)155-858506 [place] [address] 04-03-2022 06:25-0500 Body weight 88.[address] Paulo Scott Work Phone: 6(139)799-315859 [place] [address] 04-03-2022 06:25-0500 Diastolic blood pressure 73 mm[Hg] Dr. Paulo Scott Work Phone: 6(452)772-989206 [place] [address] 04-03-2022 06:25-0500 Heart rate 78 /min Dr. Paulo Scott Work Phone: 9(531)463-445606 [place] [address] 04-03-2022 06:25-0500 Respiratory rate 16 /min Dr. Paulo Scott Work Phone: 7(632)474-877906 [place] [address] 04-03-2022 06:25-0500 SaO2% (BldA) [Mass fraction] 94 % Dr. Paulo Scott Work Phone: 0(098)212-735506 [place] [address] 04-03-2022 06:25-0500 Systolic blood pressure 126 mm[Hg] Dr. Paulo Scott Work Phone: 4(950)102-920406 [place] [address] 09-18-2021 11:55-0400 Body height 162.[address] Paulo Scott Work Phone: [facility] Work Phone: 09-18-2021 11:55-0400 Body mass index (BMI) [Ratio] 33.3 kg/m2 Dr. Paulo Scott Work Phone: [facility] Work Phone: 09-18-2021 11:55-0400 Body temperature 98.7 [degF] Dr. Paulo Scott Work Phone: [facility] Work Phone: 09-18-2021 11:55-0400 Body weight 87.[address] Paulo Scott Work Phone: [facility] Work Phone: 09-18-2021 11:55-0400 Diastolic blood pressure 83 mm[Hg] Dr. Paulo Scott Work Phone: [facility] Work Phone: 09-18-2021 11:55-0400 Heart rate 81 /min Dr. Paulo Scott Work Phone: [facility] Work Phone: 09-18-2021 11:55-0400 Respiratory rate 16 /min Dr. Paulo Scott Work Phone: [facility] Work Phone: 09-18-2021 11:55-0400 SaO2% (BldA) [Mass fraction] 96 % Dr. Paulo Scott Work Phone: [facility] Work Phone: 09-18-2021 11:55-0400 Systolic blood pressure 140 mm[Hg] Dr. Paulo Scott Work Phone: [facility] Work Phone: 08-23-2021 16:52-0400 Body weight 87.73 kg Paulo Scott MD Work Phone: [facility] 08-23-2021 16:52-0400 Diastolic blood pressure 74 mm[Hg] Paulo Scott MD Work Phone: [facility] 08-23-2021 16:52-0400 Heart rate 75 /min Paulo Scott MD Work Phone: [facility] 08-23-2021 16:52-0400 Respiratory rate 16 /min Paulo Scott MD Work Phone: [facility] 08-23-2021 16:52-0400 SaO2% (BldA) [Mass fraction] 99 % Paulo Scott MD Work Phone: [facility] 08-23-2021 16:52-0400 Systolic blood pressure 126 mm[Hg] Pualo Scott MD Work Phone: [facility] 08-06-2021 10:38-0400 Body mass index (BMI) [Ratio] 33.5 kg/m2 Dr. Paulo Scott Work Phone: [facility] Work Phone: 08-06-2021 10:38-0400 Body temperature 97.2 [degF] Dr. Paulo Scott Work Phone: [facility] Work Phone: 08-06-2021 10:38-0400 Body weight 88.[address] Paulo Scott Work Phone: [facility] Work Phone: 08-06-2021 10:38-0400 Diastolic blood pressure 79 mm[Hg] Dr. Paulo Scott Work Phone: [facility] Work Phone: 08-06-2021 10:38-0400 Heart rate 79 /min Dr. Paulo Scott Work Phone: [facility] Work Phone: 08-06-2021 10:38-0400 Respiratory rate 16 /min Dr. Paulo Scott Work Phone: [facility] Work Phone: 08-06-2021 10:38-0400 SaO2% (BldA) [Mass fraction] 94 % Dr. Paulo Scott Work Phone: [facility] Work Phone: 08-06-2021 10:38-0400 Systolic blood pressure 122 mm[Hg] Dr. Paulo Scott Work Phone: [facility] Work Phone: Encounters Encounter Date Encounter Type Care Provider Facility Start: 01-24-2025 ambulatory Seymour HALE Facility:[facility] Start: 01-21-2025 End: 01-21-[address] [facility] Facility:[facility] Start: 01-17-[address] [facility] Facili ty:[facility] Start: 01-13-2025 End: 01-14-2025 Emergency department patient visit [facility] Facility:[facility] Start: 01-13-2025 ambulatory Paulo D Talampas Facilit y:[facility] Start: 01-11-2025 ambulatory Paulo D Talampas Facilit y:[facility] Start: 01-04-2025 ambulatory Paulo D Talampas Facilit y:[facility] Start: 01-04-2025 [facility] MD Chirinos Jogre Javier Start: 01-03-2025 Dr. [facility]ifton [facility] Work [facility]: Start: 01-02-2025 Dr. Clifton Lynn and [facility] Work [facility]: Start: 01-01-2025 Dr. Clifton Lynn and [facility] Work Phone: Start: 12-31-2024 Dr. Keshav Elizondo MD [facility] Work Phone: Start: 12-30-2024 Raul [facility] Start: 12-30-2024 ambulatory Paulo D Talampas Facilit y:[facility] Start: 12-30[facility] Start: 12-30-2024 Dr. Keshav [facility] Work Phone: Start: 12-29-2024 [facility] Start: 12-28-2024 ambulatory Paulo D Talampas Facilit y:[facility] Start: 12-28-2024 [facility] Start: 12-28-2024 Dr. Keshav [facility] Work Phone: Start: 12-28-2024 Dr. Julian Paul MD -[facility] Work Phone: Start: 12-27-2024 Raul Casper DO -[facility] Start: 12-27-2024 ambulatory Paulo Scott Facilit y:[facility] Start: 12-27-2024 End: 01-03-2025 Evaluation and management of inpatient Dr. Paulo Scott MD Work Phone: -Progressive Care Unit Start: 12-27-2024 End: 01-03-2025 Dr. Clifton Wells MD -[facility] Work Phone: Start: 12-17-2024 End: 12-17-2024 Patient encounter procedure Adelina CASTANEDA -[facility] Work Phone: Start: 12-17-2024 End: 12-17-2024 Adelina CASTANEDA -[facility] Work Phone: Start: 12-17-2024 End: 12-17-[address] Paulo Scott MD Work Phone: -[facility] Start: 12-06-2024 End: 12-06-2024 ambulatory PAULO SCOTT Facility:[facility] Start: 12-05-2024 End: 12-05-2024 [facility] Start: 12-05-2024 End: 12-05-2024 Emergency department patient visit Dr. Shanika Galicia MD -Emergency Department Work Phone: Start: 11-30-2024 End: 12-01-2024 Refill Paulo Scott MD Work Phone: [facility] [place] Comment on above: Refill Request Start: 11-29-2024 End: 11-30-2024 Refill Juan Rodriguez APRN.CNS Work Phone: [facility] [place] Comment on above: Refill Request Start: 10-31-2024 End: 11-01-2024 Refill Paulo Scott MD Work Phone: [facility] [place] Comment on above: Refill Request Start: 10-15-2024 End: 10-15-2024 Patient encounter procedure Gina [facility] Work Phone: Start: 10-15-2024 End: 10-15-2024 Gina [facility] Work Phone: Start: 10-15-2024 End: 10-15-[address] Paulo Scott MD Work Phone: [facility] Start: 09-29-2024 End: 10-04-2024 ambulatory Paulo Scott MD Work Phone: Internal [place] [phone] Start: 09-28-2024 End: 11-28-2024 Follow-up encounter Norman Garcia APRN.CEMENT PAVER Work Phone: [facility] Start: 09-24-2024 End: 09-24-2024 Patient encounter procedure Norman Garcia APRN.CEMENT PAVER Work Phone: [facility] Comment on above: Diet-controlled diab etes mellitus (HCC) (Primary Dx); Essential hypertension; Mixed hyperlipidemia; Acquired hypothyroidism; Obesity, Class II, BMI 35-39.9; Encounter for therapeutic drug monitoring; Vitamin D deficiency; Anxiety; Bursitis of other bursa of left hip Start: 09-24-2024 End: 09-24-2024 ambulatory NORMAN GARCIA Facility:[facility] Start: 08-31-2024 End: 08-31-2024 Refill Paulo Scott MD Work Phone: Internal [facility] Comment on above: Refill Request; Medi cation Problem (Patient almost out) Start: 08-27-2024 End: 08-30-2024 Patient Msg Paulo Scott MD Work Phone: [facility] [place] Comment on above: A Message About Your Refill Request Start: 08-26-2024 End: 08-30-2024 Refill Paulo Scott MD Work Phone: Family [facility] Comment on above: Refill Request Start: 08-25-2024 End: 08-25-2024 Telephone encounter Paulo Scott MD Work Phone: [facility] [place] Comment on above: Medication Problem Start: 08-22-2024 End: 08-22-2024 Emergency department patient visit Dr. Paulo Scott MD Work Phone: -Emergency Department Work Phone: Start: 06-18-2024 End: 06-18-2024 Patient encounter procedure Raul Casper [facility] Work Phone: Start: 06-18-2024 End: 06-18-2024 ambulatory Paulo Scott Facility:[facility] Start: 06-18-2024 End: 06-18-[address] Callum Trimble DO [facility] Work Phone: Start: 06-18-2024 End: 06-18-2024 ambulatory Paulo Scott Facility:[facility] Start: 05-26-2024 End: 05-26-[address] Paulo Scott MD Work Phone: [facility] Work Phone: Start: 05-26-2024 End: 05-26-[address] 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 Callum Trimble DO [facility] Work Phone: Start: 04-16-2024 End: 04-16-2024 ambulatory Paulo D Talampas Facility:[facility] Start: 04-09-2024 End: 04-09-[address] Callum Trimble [facility] Work Phone: Start: 04-09-2024 End: 04-09-2024 ambulatory Paulo D Talampas Facility:[facility] Start: 04-08-2024 End: 04-08-2024 Patient encounter procedure Raul Casper [facility] Work Phone: Start: 04-08-2024 End: 04-08-2024 ambulatory Paulo D Talampas Facility:[facility] Start: 04-02-2024 End: 04-02-[address] Callum Trimble [facility] Work Phone: Start: 04-02-2024 End: 04-02-2024 ambulatory Paulo D Talampas Facility:[facility] Start: 03-12-2024 End: 03-12-[address] Callum Trimble [facility] Work Phone: Start: 03-12-2024 End: 03-12-2024 ambulatory Paulo D Talampas Facility:[facility] Start: 03-05-2024 End: 03-05-2024 ambulatory PAULO D TALAMPAS Facility:[facility] Start: 03-05-2024 End: 03-05-2024 Subsequent hospital visit by physician [facility] Comment on above: Encounter for screen ing mammogram for breast cancer [Z12.31] Start: 02-22-2024 End: 02-27-2024 Refill Paulo Scott MD Work Phone: [facility] Comment on above: Refill Request Start: 02-20-2024 End: 02-20-2024 Patient encounter procedure Raul Casper [facility] Work Phone: Start: 02-20-2024 End: 02-20-2024 Refill Juan Rodriguez APRN.OVERLOCK HEMMER Work Phone: [facility] [place] Comment on above: Refill Request Start: 02-11-2024 End: 02-11-2024 Refill Paulo Scott MD Work Phone: [facility] [place] Comment on above: Refill Request Start: 01-30-2024 End: 01-30-2024 ambulatory Paulo Scott Facility:[facility] Start: 01-23-2024 End: 01-23-2024 Patient encounter procedure Norman Garcia TOBACCO GRADER.C[employer] PAVER Work Phone: [facility] [place] Comment on above: Acute cough (Primary Dx); Acquired hypothyroidism; Spinal stenosis of lumbar region, unspecified whether neurogenic claudication present; Primary hypertension; Mixed hyperlipidemia; Vitamin D deficiency; Diet-controlled diabetes mellitus (HCC); Screening for depression Start: 12-24-2023 End: 12-24-2023 Refill Paulo Scott MD Work Phone: [facility] [place] Comment on above: Refill Request Start: 11-11-2023 End: 11-11-2023 Refill Paulo Scott MD Work Phone: [facility] [place] Comment on above: Refill Request Start: 10-17-2023 Telephone encounter Paulo hardwick MD Work Phone: [facility] [place] Comment on above: Future Appointment Start: 10-17-2023 End: 10-17-2023 Office outpatient visit 15 minutes Juan Rodriguez APRN.OVERLOCK HEMMER Work Phone: [facility] [place] Comment on above: External hemorrhoid (Primary Dx) Start: 10-15-2023 ambulatory Paulo lockett MD Work Phone: [facility] [place] Start: 09-22-2023 Telephone encounter Paulo hardwick MD Work Phone: [facility] [place] Comment on above: Medication Problem Start: 09-17-2023 End: 09-17-2023 Office outpatient visit 25 minutes Paulo Scott MD Work Phone: [facility] [place] Comment on above: DDD (degenerative di sc disease), lumbar (Primary Dx); Protrusion of lumbar intervertebral disc; Spinal stenosis of lumbar region, unspecified whether neurogenic claudication present; Vertigo; Anxiety; Primary hypertension; Mixed hyperlipidemia; Vitamin D deficiency; IFG (impaired fasting glucose); Encounter for long-term current use of medication Start: 08-21-2023 Refill Paulo lockett MD Work Phone: [facility] [place] Comment on above: Refill Request Start: 07-22-2023 End: 07-22-2023 Subsequent hospital visit by physician [facility] [place] Work Phone: Radiology Comment on above: Acute pain of both k nees [M25.561, M25.562] Start: 07-22-2023 End: 07-22-2023 Patient encounter procedure Whit Demarco PA Work Phone: [facility] Comment on above: Acute pain of both k nees (Primary Dx) Start: 07-04-2023 Telephone encounter Paulo hardwick MD Work Phone: [facility] [place] Comment on above: Insurance Authorizat ion Start: 07-04-2023 End: 07-04-2023 Patient encounter procedure Norman Garcia APRN.CEMENT PAVER Work Phone: [facility] [place] Comment on above: Strain of lumbar reg ion, subsequent encounter (Primary Dx); Chronic bilateral low back pain with bilateral sciatica Start: 07-03-2023 E-mail encounter fro m caregiver [facility] Start: 07-03-2023 Patient encounter procedure [facility] [place] Comment on above: appointment cancella tion Start: 06-19-2023 End: 06-19-2023 Emergency department patient visit Dr. Paulo Scott Work Phone: [facility]-Emergency Department Work Phone: Start: 04-28-2023 Refill Juan Rodriguez APRN.OVERLOCK HEMMER Work Phone: [facility] [place] Comment on above: Refill Request Start: 04-23-2023 Non-patient / Non-visit Dr. Octavia Scott Work Phone: [facility] Start: 04-23-2023 End: 04-23-2023 Admission to same day surgery center Dr. Paulo Scott Work Phone: [facility]-Endoscopy Work Phone: Start: 04-23-2023 End: 04-23-[address] Paulo Scott Work Phone: [facility] Work Phone: Start: 04-14-2023 End: 04-14-[address] Paulo Scott Work Phone: [facility]-Pulmonary Medicine [facility] Work Phone: Start: 03-05-2023 End: 03-05-[address] Paulo Scott Work Phone: [facility] Work Phone: Start: 02-21-2023 End: 02-21-2023 Office outpatient visit 25 minutes Juan Rodriguez APRN.OVERLOCK HEMMER Work Phone: [facility] [place] Comment on above: Acquired hypothyroid ism (Primary Dx); Essential hypertension; Chronic bilateral low back pain with bilateral sciatica; Elevated glucose; Mixed hyperlipidemia; Encounter for immunization; Vertigo; Anxiety Start: 02-17-2023 Telephone encounter Juan godinez APRN.OVERLOCK HEMMER Work Phone: [facility] [place] Comment on above: Lab Orders Start: 02-12-2023 Refill Paulo lockett MD Work Phone: [facility] [place] Comment on above: Refill Request Start: 01-31-2023 End: 01-31-[address] Paulo Scott Work Phone: [facility] Work Phone: Start: 11-06-2022 Telephone encounter Paulo hardwick MD Work Phone: [facility] [place] Comment on above: Patient Update Start: 10-26-2022 Refill Norman Sumeet TOBACCO GRADER.CEMENT PAVER Work Phone: [facility] [place] Comment on above: Refill Request Start: 10-17-2022 End: 10-17-[address] Paulo Scott Work Phone: [facility] Work Phone: Start: 10-17-2022 End: 10-17-[address] [facility] Start: 10-15-2022 End: 10-15-[address] Paulo Scott Work Phone: [facility] Work Phone: Start: 10-15-2022 End: 10-15-[address] [facility] Work [facility]: Start: 10-02-2022 End: 10-02-[address] [facility] Work Phone: Start: 09-27-2022 End: 09-27-[address] Paulo Scott Work Phone: [facility] Work Phone: Start: 09-24-2022 Refill Norman Garcia TOBACCO GRADER.CEMENT PAVER Work Phone: [facility] [place] Comment on above: Refill Request Start: 09-19-2022 End: 09-19-2022 Patient encounter procedure Ryan Chicas MD Work Phone: [facility] Comment on above: Rash (Primary Dx); Intertrigo Start: 09-18-2022 Refill Paulo lockett MD Work Phone: [facility] [place] Comment on above: Refill Request Start: 09-16-2022 Documentation procedure Mammog annalisa Coordinator [facility] Start: 09-16-2022 Letter encounter Mammography Coordinator [facility] Department Start: 09-13-2022 End: 09-13-2022 Subsequent hospital visit by physician [facility] Comment on above: Encounter for screen ing mammogram for breast cancer [Z12.31] Start: 09-09-2022 Refill Paulo lockett MD Work Phone: [facility] [place] Comment on above: Refill Request Start: 08-19-2022 Telephone encounter Paulo hardwick MD Work Phone: [facility] [place] Comment on above: Rx transferred to [facility] pharmacy Start: 08-05-2022 End: 08-05-2022 Emergency department patient visit Dr. Paulo Scott Work Phone: [facility] Work Phone: Start: 07-30-2022 Refill Norman Garcia TOBACCO GRADER.CEMENT PAVER Work Phone: [facility] [place] Comment on above: Refill Request Start: 07-26-2022 End: 07-26-[address] Paulo Scott Work Phone: [facility] Work Phone: Start: 06-10-2022 Telephone encounter Paulo hardwick MD Work Phone: [facility] [place] Comment on above: Opened In Error Start: 05-22-2022 Telephone encounter Paulo hardwick MD Work Phone: [facility] [place] Comment on above: OT Update Start: 05-21-2022 Refill Norman Garcia TOBACCO GRADER.CEMENT PAVER Work Phone: [facility] [place] Comment on above: Refill Request Start: 05-17-2022 End: 05-17-2022 Office outpatient visit 25 minutes Paulo Scott MD Work Phone: [facility] [place] Comment on above: Pain in both lower e xtremities (Primary Dx); Bilateral leg edema; Imbalance; Cold sore Start: 05-09-2022 Telephone encounter Paulo hardwick MD Work Phone: [facility] [place] Comment on above: [facility], OT update/ve rbal order Start: 05-07-2022 Telephone encounter Paulo hardwick MD Work Phone: [facility] [place] Comment on above: [facility], PT, plan of care; FYI-No Action Needed Start: 05-06-2022 Non-patient / Non-visit Dr. Octavia Scott Work Phone: [facility] Inpatient Physicians Start: 05-05-2022 Non-patient / Non-visit Dr. Octavia Scott Work Phone: [facility] Inpatient Physicians Start: 05-05-2022 End: 05-06-2022 Evaluation and management of inpatient Dr. Paulo Scott Work Phone: [facility] Surgical 3 Start: 05-05-2022 End: 05-06-[address] Paulo Scott Work Phone: [facility] Work Phone: Start: 04-26-2022 End: 04-26-2022 Office outpatient visit 25 minutes Juan Rodriguez TOBACCO GRADER.OVERLOCK HEMMER Work Phone: Internal [facility] Comment on above: Submandibular lympha denopathy (Primary Dx); Primary hypertension; Throat pain Start: 04-24-2022 End: 04-24-2022 Emergency department patient visit Dr. Paulo Scott Work Phone: [facility]Emergency Department Start: 04-24-2022 ambulatory Paulo lockett MD Work Phone: [facility] [place] Comment on above: Face Swelling Start: 04-03-2022 End: 04-03-[address] Paulo Scott Work Phone: [facility]Pulmonary Medicine [facility] Start: 03-19-2022 Refjessica Garcia APRN.CNP Work Phone: [facility] [place] Comment on above: Refill Request Start: 02-25-2022 Telephone encounter Paulo hardwick MD Work Phone: [facility] [place] Comment on above: Results Start: 02-19-2022 Refill Paulo lockett MD Work Phone: [facility] [place] Comment on above: Refill Request Start: 12-07-2021 End: 12-07-2021 ambulatory Mi Nurse Work Phone: [facility] [place] Start: 11-01-2021 Refill Paulo lockett MD Work Phone: [facility] [place] Comment on above: Refill Request Start: 10-04-2021 Telephone encounter Paulo hardwick MD Work Phone: [facility] [place] Comment on above: Patient Question Start: 09-18-2021 End: 09-18-2021 Emergency department patient visit Dr. Paulo Scott Work Phone: [facility] Start: 08-31-2021 Telephone encounter Paulo hardwick MD Work Phone: [facility] [place] Comment on above: Medication Problem Start: 08-23-2021 End: 08-23-2021 Office outpatient visit 25 minutes Paulo Scott MD Work Phone: [facility] [place] Comment on above: Acquired hypothyroid ism (Primary Dx); IFG (impaired fasting glucose); Vitamin D deficiency; Essential hypertension; Vertigo; OAB (overactive bladder); Dysphagia, unspecified type; Anxiety Start: 08-22-2021 ambulatory Paulo lockett MD Work Phone: Internal [facility] [place] Start: 08-06-2021 End: 08-06-[address] [facility] Start: 05-25-2021 End: 05-25-[address] Paulo Scott Work Phone: [facility]-Radiology, [facility] Start: 12-15-2020 End: 12-15-2020 Subsequent hospital visit by physician Xr [facility] Work Phone: Radiology Comment on above: Acute pain of right shoulder [M25.511] Start: 08-30-2020 End: 08-30-2020 [facility]: [facility] Comment on above: Trigger middle finge r of right hand [M65.331] Start: 07-22-2020 End: 07-22-2020 Subsequent hospital visit by physician Quoc Diaz MD Work Phone: [facility] Comment on above: Family history of co thom cancer; Family history of gene mutation; Personal history of colonic polyps Start: 07-11-2020 End: 07-11-2020 Subsequent hospital visit by physician Xr [facility] Work Phone: Radiology Comment on above: Back [...] Start: 01-03-2025 Platelet mean volume determination Dr. Jorge Scott MD Work Phone: Start: 01-01-2025 Plain [...] 01-23-2024 Adult depression screening assessment Norman Garcia APRN.CEMENT PAVER Work Phone: Start: 11-28-2023 Lipid 1995 panel [...] panel - Serum or Plasma Juan Rodriguez TOBACCO GRADER.OVERLOCK HEMMER Work Phone: Start: 10-17-2022 Clostridium difficile detection [...] MD Work Phone: Start: 05-25-[address] Pauol Scott Work Phone: Start: 12-15-2020 Radex shoulder complete minimum 2 views Paulo Scott MD Work Phone: Start: 08-30-2020 Radex hand minimum 3 views Juan Rodriguez TOBACCO GRADER.OVERLOCK HEMMER Work Phone: Start: 07-21-2020 Mammography Paulo Scott MD Work Phone: Start: 07-11-2020 Radex spine lumbosacral 2/3 views Paulo Scott MD Work Phone: Start: 07-11-2019 History of cholecystectomy S/P laparoscopic cholecystectomy Paulo Scott MD Work Phone: Start: 01-15-2015 Colonoscopy Paulo Scott MD Work Phone: Plan of Treatment Date Care Activity Detail Author Start: 04-23-2030 Screening for malign ant neoplasm of colon [facility] Start: 11-27-2028 Lipid panel Lipid Screening [facility] Start: 08-28-2028 Lipid panel Lipid Screening [facility] Start: 02-20-2028 Lipid 1996 panel - S ana or Plasma Lipid Screening [facility] Start: 02-20-2028 Lipid panel Lipid Screening [facility] Start: 08-29-2027 Lipid 1996 panel - S ana or Plasma Lipid Screening [facility] Start: 08-29-2027 LIPID SCREEN LIPID SCREEN [facility] Start: 11-27-2026 Diabetes Screening Diabetes Screenin [facility] Start: 08-28-2026 Diabetes Screening Diabetes Screenin [facility] Start: 08-04-2026 L[address] SCREEN LIPID SCREEN [facility] Start: 02-19-2026 Diabetes Screening Diabetes Screenin g [facility] Start: 09-24-[address] Vendor gregorio Disease Visit Annual PCP Team Chronic Disease Visit [facility] Start: 09-24-2025 Hepatitis B surface antibody level LDL Cholesterol [facility] Start: 08-28-2025 DIABETES SCREEN DIABETES SCREEN [facility] Start: 08-28-2025 Diabetes Screening Diabetes Screenin g [facility] Start: 05-21-2025 BP Controlled (<130/80) BP Controlle d (<130/80) [facility] Start: 05-21-2025 Covid-19 Vaccine () Covid-19 Vaccine () [facility] Comment on above: Postponed from 11/15 (Declined at this time) Start: 03-27-2025 Hemoglobin A1c measurement HbA1C [facility] Start: 03-05-2025 Screening for malign ant neoplasm of breast Mammogram Screening [facility] Start: 03-04-2025 End: 03-04-2025 Patient encounter procedure 03/04/2025 3:20 PM EST Office Visit [facility] [place] [address] [place] [address] Paulo Scott MD [address] [place] [address] 4 month f/u [facility] [place] Comment on above: 4 month f/u Start: 2025 RSV Vaccine (1 - 1-d ose 75+ series) RSV Vaccine (1 - 1-dose 75+ series) [facility] Start: 02-15-2025 DIABETES SCREEN DIABETES SCREEN [facility] Start: 01-22-[address] Vendor gregorio Disease Visit Annual PCP Team Chronic Disease Visit [facility] Start: 01-22-2025 BP Controlled (<130/80) BP Controlle d (<130/80) [facility] Start: 01-22-2025 Depression Screening Depression Scre ening [facility] Start: 01-17-2025 -JOSE - Vignesh riley Start: 01-14-2025 [facility] Start: 01-13-2025 End: 01-14-2025 -Emergency Department Work Phone: Start: 01-11-2025 Vitamin D, 25-hydrox y measurement [facility] Start: 01-11-2025 -BLASL - Den nison Start: 01-03-2025 Oxygen therapy [facility] Start: 01-03-2025 Patient discharge [facility] Start: 01-03-2025 [facility] Start: 01-01-2025 Referral for physica l therapy [facility] Start: 01-01-2025 Referral to occupati onal therapist [facility] Start: 12-30-2024 Elevation of affecte d extremity [facility] Start: 12-30-2024 Notification of physician [facility] Start: 12-30-2024 Patient education [facility] Start: 12-30-2024 Inhalation therapy procedure [facility] Start: 12-29-2024 [facility] Start: 12-28-2024 Following clinical p athway protocol [facility] Start: 12-28-2024 End: 12-28-2024 [facility] Start: 12-28-2024 Notification of physician [facility] Start: 12-28-2024 Care regimes management [facility] Start: 12-27-2024 End: 12-28-2024 [facility] Start: 12-27-2024 End: 12-27-2024 Following clinical pathway protocol [facility] Start: 12-27-2024 Ambulation without limitation [facility] Start: 12-27-2024 Assessment of risk o f venous thromboembolism [facility] Start: 12-27-2024 Documentation procedure [facility] Start: 12-27-2024 Insertion of cathete r into peripheral vein [facility] Start: 12-27-2024 Measuring intake and output [facility] Start: 12-27-2024 Providing care accor ding to standard [facility] Start: 12-27-2024 Referral to gastroenterology service [facility] Start: 12-27-2024 Referral to service [facility] Start: 12-27-2024 Admission procedure [facility] Start: 12-27-2024 Administration of bl ood product [facility] Start: 12-27-2024 Consultation [facility] Start: 12-05-2024 [facility] Start: 12-05-2024 [facility] Start: 11-27-2024 Hepatitis B surface antibody level LDL Cholesterol [facility] Start: 11-15-2024 Influenza vaccination C [facility] Start: 10-16-2024 BP Controlled (<130/80) BP Controlle d (<130/80) [facility] Start: 09-29-2024 End: 12-29-2024 Microalbumin/Creatinine [Mass Ratio] in Urine ALBUMIN/CREATININE RATIO, URINE Lab Routine Diet-controlled diabetes mellitus (HCC) Expected: 09/29/2024, Expires: 12/29/2024 [facility] Work Phone: Comment on above: Expected: 09/29/2024 , Expires: 12/29/2024 Start: 09-24-2024 End: 12-24-2024 25-hydroxyvitamin D3 [Mass/volume] in Serum or Plasma [facility] Comment on above: Expected: 09/24/2024 , Expires: 12/24/2024 Start: 09-24-2024 End: 12-24-2024 Comprehensive metabolic 2000 panel - Serum or Plasma [facility] Work Phone: Comment on above: Expected: 09/24/2024 , Expires: 12/24/2024 Start: 09-24-2024 End: 12-24-2024 Hemoglobin A1c in Blood [facility] Comment on above: Expected: 09/24/2024 , Expires: 12/24/2024 Start: 09-24-2024 End: 12-24-2024 LIPID PANEL, NONFASTING [facility] Comment on above: Expected: 09/24/2024 , Expires: 12/24/2024 Start: 09-24-2024 End: 12-24-2024 Thyrotropin [Units/volume] in Serum or Plasma [facility] Comment on above: Expected: 09/24/2024 , Expires: 12/24/2024 Start: 09-24-2024 End: 09-24-2024 Patient encounter procedure [facility] [place] Comment on above: 4 month f/u Start: 09-16-[address] Vendor gregorio Disease Visit Annual PCP Team Chronic Disease Visit [facility] Start: 09-16-2024 BP Controlled (<130/80) BP Controlle d (<130/80) [facility] Start: 09-13-2024 Influenza vaccination Influenza Vacc ine (#1) [facility] Comment on above: Postponed from 11/15 (Declined at this time) Start: 08-28-2024 Hepatitis B surface antibody level LDL Cholesterol [facility] Start: 08-22-[address] [place] [facility] Start: 08-04-2024 DIABETES SCREEN DIABETES SCREEN [facility] Start: 07-03-[address] Vendor gregorio Disease Visit Annual PCP Team Chronic Disease Visit [facility] Start: 05-27-2024 Hemoglobin A1c measurement HbA1C [facility] Start: 05-21-2024 End: 05-21-2024 Patient encounter procedure 05/21/2024 1:40 PM EST Office Visit [facility] [place] [address] [place] [address] Paulo Scott MD [address] [place] [address] 4 month follow up [facility] [place] Comment on above: 4 month follow up Start: 04-08-2024 Following clinical p athway protocol [facility] Start: 03-05-2024 End: 03-05-2024 Patient encounter procedure 03/05/2024 1:30 PM EST Appointment Mammogram [address] [place] [address] [facility] prev here Mammogram Comment on above: [facility] Screening prev here Start: 02-22-2024 BP Controlled (<130/80) BP Controlle d (<130/80) [facility] Start: 02-20-2024 Hepatitis B surface antibody level LDL Cholesterol [facility] Start: 01-23-2024 End: 01-23-2024 Patient encounter procedure 01/23/2024 1:20 PM EST Office Visit [facility] [place] [address] [place] [address] Norman Garcia APRN.CEMENT PAVER [address] [place] [address] 4 month follow up [facility] [place] Comment on above: 4 month follow up Start: 12-18-2023 End: 03-18-2024 25-hydroxyvitamin D3 [Mass/volume] in Serum or Plasma VITAMIN D 25 HYDROXY Lab Routine Vitamin D deficiency Encounter for long-term current use of medication Expected: 12/18/2023 (Approximate), Expires: 03/18/2024 [facility] Comment on above: Expected: 12/18/2023 (Approximate), Expires: 03/18/2024 Start: 12-18-2023 End: 03-18-2024 Comprehensive metabolic 2000 panel - Serum or Plasma COMPREHENSIVE METABOLIC PANEL Lab Routine IFG (impaired fasting glucose) Encounter for long-term current use of medication Expected: 12/18/2023 (Approximate), Expires: 03/18/2024 [facility] Comment on above: Expected: 12/18/2023 (Approximate), Expires: 03/18/2024 Start: 12-18-2023 End: 03-18-2024 Hemoglobin A1c in Blood HEMOGLOBIN A1C Lab Routine IFG (impaired fasting glucose) Encounter for long-term current use of medication Expected: 12/18/2023 (Approximate), Expires: 03/18/2024 [facility] Work Phone: Comment on above: Expected: 12/18/2023 (Approximate), Expires: 03/18/2024 Start: 12-18-2023 End: 03-18-2024 Lipid 1996 panel - Serum or Plasma LIPID PANEL BASIC Lab Routine Encounter for long-term current use of medication Expected: 12/18/2023 (Approximate), Expires: 03/18/2024 [facility] Comment on above: Expected: 12/18/2023 (Approximate), Expires: 03/18/2024 Start: 12-18-2023 End: 03-18-2024 TOXICOLOGY SCREEN, ROUTINE URINE TOXICOLOGY SCREEN, ROUTINE URINE Lab Routine Encounter for long-term current use of medication Expected: 12/18/2023 (Approximate), Expires: 03/18/2024 [facility] Comment on above: Expected: 12/18/2023 (Approximate), Expires: 03/18/2024 Start: 11-16-2023 Covid-19 Vaccine ( season) Covid-19 Vaccine ( season) [facility] Start: 11-16-2023 Covid-19 Vaccine ( season) Covid-19 Vaccine ( season) [facility] Start: 11-16-2023 Influenza vaccination C [facility] Start: 09-17-2023 End: 09-17-2023 Patient encounter procedure 09/17/2023 1:40 PM EDT Office Visit [facility] [place] [address] [place] [place] [id number] Paulo Scott MD [address] [place] [id number] 6 Month follow up [facility] [place] Comment on above: 6 Month follow up Start: 09-14-[address] [facility] Start: 09-14-2023 Screening for malign ant neoplasm of breast Mammogram Screening [facility] Start: 09-07-2023 SHINGRIX VACCINE (2 of 3) GALICIA GRIX VACCINE (2 of 3) [facility] Comment on above: Postponed from 05/01 (Declined at this time) Start: 08-29-2023 Hepatitis B surface antibody level LDL CHOLESTEROL [facility] Start: 08-11-2023 End: 02-13-2024 CBC W Auto Differential panel - Blood CBC + DIFF Lab Routine Essential hypertension Expected: 08/11/2023 (Approximate), Expires: 02/13/2024 [facility] Work Phone: Comment on above: Expected: 08/11/2023 (Approximate), Expires: 02/13/2024 Start: 08-11-2023 End: 02-13-2024 Comprehensive metabolic 2000 panel - Serum or Plasma COMP METABOLIC PANEL Lab Routine Mixed hyperlipidemia Essential hypertension Expected: 08/11/2023 (Approximate), Expires: 02/13/2024 [facility] Work Phone: Comment on above: Expected: 08/11/2023 (Approximate), Expires: 02/13/2024 Start: 08-11-2023 End: 02-13-2024 Hemoglobin A1c in Blood HGB A1C Lab Routine Elevated glucose Expected: 08/11/2023 (Approximate), Expires: 02/13/2024 [facility] Work Phone: Comment on above: Expected: 08/11/2023 (Approximate), Expires: 02/13/2024 Start: 08-11-2023 End: 02-13-2024 Lipid 1996 panel - Serum or Plasma LIPID PANEL BASIC Lab Routine Mixed hyperlipidemia Expected: 08/11/2023 (Approximate), Expires: 02/13/2024 [facility] Work Phone: Comment on above: Expected: 08/11/2023 (Approximate), Expires: 02/13/2024 Start: 08-11-2023 End: 02-13-2024 Thyrotropin [Units/volume] in Serum or Plasma TSH BLD Lab Routine Acquired hypothyroidism Expected: 08/11/2023 (Approximate), Expires: 02/13/2024 [facility] Work Phone: Comment on above: Expected: 08/11/2023 (Approximate), Expires: 02/13/2024 Start: 06-19-2023 [facility] Start: 05-18-2023 ANNUAL PCP TEAM GEAR NICKER GREGORIO DISEASE VISIT ANNUAL PCP TEAM CHRONIC DISEASE VISIT [facility] Start: 04-26-2023 BP CONTROLLED (<130/80) BP CONTROLLE D (<130/80) [facility] Start: 04-23-2023 Colsc flx w/rmvl of tumor polyp lesion snare tq COLONOSCOPY W/LESION REMOVAL [facility] Start: 04-23-2023 Egd transoral biopsy single/multiple EGD BIOPSY SINGLE/MULTIPLE [facility] Start: 04-23-2023 Patient discharge [facility] Start: 04-17-2023 COLORECTAL CANCER SCREENING COLORECTAL CANCER SCREENING [facility] Comment on above: Postponed from 02/26 (Declined at this time) Start: 03-17-2023 Advance Directive Discussion Advance Directive Discussion [facility] Start: 03-17-2023 Behavioral Health Screening Behavioral Health Screening [facility] Start: 03-17-2023 Depression Assessment Depression Ass essment [facility] Start: 03-01-2023 FECAL OCCULT BLOOD FECAL OCCULT BLOO D [facility] Start: 03-01-2023 Screening for malign ant neoplasm of colon Fecal Occult Blood [facility] Start: 02-22-2023 ANNUAL PCP TEAM GEAR NICKER GREGORIO DISEASE VISIT ANNUAL PCP TEAM CHRONIC DISEASE VISIT [facility] Start: 02-22-2023 COVID-19 VACCINE (3 - Booster for Pfizer series) COVID-19 VACCINE (3 - Booster for Pfizer series) [facility] Comment on above: Postponed from 10/20 (Declined at this time) Start: 02-22-2023 COVID-19 VACCINE (3 - Pfizer series) COVID-19 VACCINE (3 - Pfizer series) [facility] Comment on above: Postponed from 10/20 (Declined at this time) Start: 11-15-2022 Covid-19 Vaccine (3 - 2023-24 season) Covid-19 Vaccine ( season) [facility] Start: 11-15-2022 Influenza vaccination [facility] Start: 10-17-2022 Elastase, pancreatic (el-1), fecal; quantitative [facility] Start: 10-17-2022 Procedure [facility] Start: 10-17-2022 [facility] Start: 09-19-2022 End: 11-19-2022 Herpes simplex virus+Varicella zoster virus DNA [Presence] in Unspecified specimen by ELIN with probe detection [facility] Work Phone: Comment on above: Expected: 09/19/2022 , Expires: 11/19/2022 Start: 08-23-2022 Adult depression scr eening assessment DEPRESSION SCREENING [facility] Start: 08-23-2022 ANNUAL PCP TEAM GEAR NICKER GREGORIO DISEASE VISIT ANNUAL PCP TEAM CHRONIC DISEASE VISIT [facility] Start: 08-23-2022 BP CONTROLLED (<130/80) BP CONTROLLE D (<130/80) [facility] Start: 08-23-2022 SHINGRIX VACCINE (2 of 3) GALICIA GRIX VACCINE (2 of 3) [facility] Comment on above: Postponed from 05/01 (Declined at this time) Start: 08-23-2022 Urine microalbumin profile DTAP,TDAP ,TD (1 - Tdap) [facility] Comment on above: Postponed from 11/18 (Declined at this time) Start: 08-04-2022 Hepatitis B surface antibody level LDL CHOLESTEROL [facility] Start: 05-06-2022 Referral to service [facility] Start: 05-06-2022 Patient discharge [facility] Start: 05-05-2022 Following clinical p athway protocol [facility] Start: 05-05-2022 Assessment of risk o f venous thromboembolism [facility] Start: 05-05-2022 Insertion of cathete r into peripheral vein [facility] Start: 05-05-2022 Measuring intake and output [facility] Start: 05-05-2022 Providing care accor ding to standard [facility] Start: 05-05-2022 Provision of activit y privileges [facility] Start: 05-05-2022 Referral to occupati onal therapist [facility] Start: 05-05-2022 Referral to service [facility] Start: 05-05-2022 [facility] Start: 05-05-2022 Admission procedure [facility] Start: 05-05-2022 Inhalation therapy procedure [facility] Start: 05-05-2022 Patient referral to dietitian [facility] Start: 04-03-2022 Patient referral [facility] Work Phone: Start: 03-17-2022 ADVANCE DIRECTIVE DISCUSSION ADVANCE DIRECTIVE DISCUSSION [facility] Start: 03-17-2022 [facility] Start: 03-16-2022 [facility] Comment on above: Postponed from 03/17 (Declined at this time) Start: 03-02-2022 COLORECTAL CANCER SCREENING COLORECTAL CANCER SCREENING [facility] Start: 02-22-2022 End: 04-24-2022 25-hydroxyvitamin D3 [Mass/volume] in Serum or Plasma VITAMIN D 25 HYDROXY Lab Routine Vitamin D deficiency Expected: 02/22/2022 (Approximate), Expires: 04/24/2022 [facility] Work Phone: Comment on above: Expected: 02/22/2022 (Approximate), Expires: 04/24/2022 Start: 02-22-2022 End: 04-24-2022 CBC panel - Blood by Automated count CBC Lab Routine Essential hypertension Expected: 02/22/2022 (Approximate), Expires: 04/24/2022 [facility] Work Phone: Comment on above: Expected: 02/22/2022 (Approximate), Expires: 04/24/2022 Start: 02-22-2022 End: 04-24-2022 Comprehensive metabolic 2000 panel - Serum or Plasma COMP METABOLIC PANEL Lab Routine IFG (impaired fasting glucose) Essential hypertension Expected: 02/22/2022 (Approximate), Expires: 04/24/2022 [facility] Work Phone: Comment on above: Expected: 02/22/2022 (Approximate), Expires: 04/24/2022 Start: 02-22-2022 End: 04-24-2022 Hemoglobin A1c in Blood HGB A1C Lab Routine IFG (impaired fasting glucose) Expected: 02/22/2022 (Approximate), Expires: 04/24/2022 [facility] Work Phone: Comment on above: Expected: 02/22/2022 (Approximate), Expires: 04/24/2022 Start: 02-22-2022 End: 04-24-2022 Thyrotropin [Units/volume] in Serum or Plasma TSH BLD Lab Routine Acquired hypothyroidism Expected: 02/22/2022 (Approximate), Expires: 04/24/2022 [facility] Work Phone: Comment on above: Expected: 02/22/2022 (Approximate), Expires: 04/24/2022 Start: 02-22-2022 End: 04-24-2022 Thyroxine (T4) free [Mass/volume] in Serum or Plasma T4 FREE/FREE THYROX Lab Routine Acquired hypothyroidism Expected: 02/22/2022 (Approximate), Expires: 04/24/2022 [facility] Work Phone: Comment on above: Expected: 02/22/2022 (Approximate), Expires: 04/24/2022 Start: 02-22-2022 End: 04-24-2022 Triiodothyronine (T3) Free [Mass/volume] in Serum or Plasma T3 FREE BLD Lab Routine Acquired hypothyroidism Expected: 02/22/2022 (Approximate), Expires: 04/24/2022 [facility] Work Phone: Comment on above: Expected: 02/22/2022 (Approximate), Expires: 04/24/2022 Start: 01-15-[address] [facility] Start: 01-15-2022 COLORECTAL CANCER SCREENING COLORECTAL CANCER SCREENING [facility] Start: 11-15-2021 Influenza vaccination INFLUENZA (#1) [facility] Start: 07-21-[address] [facility] Start: 03-17-2021 DEPRESSION ASSESSMENT DEPRESSION ASS ESSMENT [facility] Start: 01-25-2021 COVID-19 VACCINE (3 - Booster for Pfizer series) COVID-19 VACCINE (3 - Booster for Pfizer series) [facility] Start: 10-20-2020 COVID-19 VACCINE (3 - Booster for Pfizer series) COVID-19 VACCINE (3 - Booster for Pfizer series) [facility] Start: 11-19-[address] [facility] Start: 11-24-2018 Hepatitis B screening Urine Albumin:Creatinine Ratio [facility] Start: 02-14-2015 Medicare Annual Well ness Visit Medicare Annual Wellness Visit [facility] Start: 10-08-2013 FECAL OCCULT BLOOD FECAL OCCULT BLOO D [facility] Start: 05-01-2012 Shingrix Vaccine (2 of 3) [place] grix Vaccine (2 of 3) [facility] Start: 2010 RSV Vaccine (1 - 1-d ose 60+ series) RSV Vaccine (1 - 1-dose 60+ series) [facility] Start: 1995 COLOGUARD (FIT-DNA) COLOGUARD (FIT-D NA) [facility] Start: [address] COLONOGRAPHY [facility] Start: 1995 Screening for malign ant neoplasm of colon [facility] Start: 1995 SIGMOIDOSCOPY SIGMOIDOSCOPY [facility] Start: 1971 Microscopic observat ion [Identifier] in Cervix by Cyto stain Pap Smear [facility] Start: 1969 Hepatitis B (1 of 3 - Risk 3-dose series) Hepatitis B (1 of 3 - Risk 3-dose series) [facility] Start: 02-27-1968 BP CONTROLLED (<130/80) BP CONTROLLE D (<130/80) [facility] Start: 02-27-1968 Depression Screening Depression Scre ening [facility] Start: 1966 COVID-19 (1) COVID-19 (1) [facility] Start: 1966 MenB (1 of 2 - MenB 2-Dose Series) MenB (1 of 2 - MenB 2-Dose Series) [facility] Start: 02-27-1960 Diabetic foot examination Diabetic F oot Exam [facility] Start: 02-27-1960 Glaucoma screening Dilated Retinal E xam [facility] Start: 1957 Tetanus Diphtheria a nd Pertussis Vaccines (1 - Tdap) Tetanus Diphtheria and Pertussis Vaccines (1 - Tdap) [facility] Start: 1951 Hepatitis A (1 of 2 - Risk 2-dose series) Hepatitis A (1 of 2 - Risk 2-dose series) [facility] Start: 1951 MMR (1 of 1 - Standa rd series) MMR (1 of 1 - Standard series) [facility] Start: 1951 Varicella (1 of 2 - 2-dose childhood series) Varicella (1 of 2 - 2-dose childhood series) [facility] COVID & INFLUENZA A/ B & RSV PCR, ROUTINE COVID & INFLUENZA A/B & RSV PCR, ROUTINE Microbiology Routine Acute cough Ordered: 01/23/2024 [facility] Work Phone: Comment on above: Ordered: 01/23/2024 End: 11-13-2024 DBT Breast - bilateral screening FORTUNATO SCREENING [facility] Radiology Routine Encounter for screening mammogram for breast cancer 1 Occurrences starting 10/15/2023 until 11/13/2024 [facility] Work Phone: Comment on above: 1 Occurrences starti ng 10/15/2023 until 11/13/2024 DBT Breast - bilater al screening FORTUNATO SCREENING W [facility] Radiology Routine Encounter for screening mammogram for breast cancer 03/05/2024 1:29 PM EST [facility] Work Phone: Genetic Sendout: Genetic Sendout : Lab Routine 07/22/2020 12:00 PM EDT [facility] End: 07-22-2020 Genetic Sendout: Common Hereditary Cancers Panel [facility] Comment on above: 1 Occurrences starti [...] Encounter for immunization 1 Occurrences starting 02/21/2023 [facility] Work Phone: Comment on above: 1 Occurrences starti ng 02/21/2023 Ova and parasites identified in Unspecified specimen by Light microscopy [facility] Patient Education [facility] Work Phone: Patient referral [facility] Work Phone: PFIZER-BIONTECH COVI D-19 VACCINE ( SEASON) AGE 12+ YR PFIZER-BIONTECH COVID-19 VACCINE ( SEASON) AGE 12+ YR Immunization/Injection Routine Encounter for immunization 1 Occurrences starting 02/21/2023 [facility] Work Phone: Comment on above: 1 Occurrences starti ng 02/21/2023 End: 09-21-2022 Screening mammography bi 2-view breast inc cad FORTUNATO SCREENING Radiology Routine Encounter for screening mammogram for breast cancer 1 Occurrences starting 08/22/2021 until 09/21/2022 [facility] Work Phone: Comment on above: 1 Occurrences starti ng 08/22/2021 until 09/21/2022 [facility] Immunizations Immunization Date Immunization Notes Care Provider [facility] 12-28-2024 influenza, high dose seasonal, preservative-free Dr. Paulo Scott MD Work Phone: [facility] 01-15-2022 influenza, injectabl e, quadrivalent, preservative free Dr. Paulo Scott Work Phone: [facility] 01-15-2022 influenza, seasonal, injectable Dr. Paulo Scott Work Phone: [facility] 01-15-2022 influenza virus vaccine, unspecified formulation Screen Wstr [facility] 12-07-2021 Influenza, high dose seasonal Dr. Paulo Scott MD Work Phone: [facility] 12-07-2021 influenza, high dose seasonal, preservative-free Dr. Paulo Scott Work Phone: [facility] 12-07-2021 influenza, high-dose , quadrivalent vaccine (FLUZONE HIGH DOSE QUADRIVALENT) [place] [facility] Work Phone: [facility] Work Phone: 12-07-2021 Dr. Paulo english MD Work Phone: [facility] 01-19-2021 influenza, high-dose , quadrivalent vaccine (FLUZONE HIGH DOSE QUADRIVALENT) Paulo Scott MD Work Phone: [facility] 08-25-2020 Covid (Pfizer) Dr. Paulo bach Work Phone: [facility] 08-04-2020 COVID-19 vaccine, ag e 12+ yr (PFIZER-BIONTE[employer]utian Technology - PURPLE TOP) Paulo Scott MD Work Phone: [facility] Work Phone: 12-16-2019 influenza, injectabl e, quadrivalent, preservative free Dr. Paulo Scott Work Phone: [facility] 12-16-2019 influenza, seasonal, injectable Dr. Paulo Scott Work Phone: [facility] 12-16-2019 influenza, seasonal, injectable, preservative free Paulo Scott MD Work Phone: [facility] Work Phone: 12-14-2019 influenza, high-dose , quadrivalent vaccine (FLUZONE HIGH DOSE QUADRIVALENT) Paulo Scott MD Work Phone: [facility] 11-18-2019 tetanus and diphther ia toxoids, adsorbed, preservative free, for adult use (2 Lf of tetanus toxoid and 2 Lf of diphtheria toxoid) Paulo Scott MD Work Phone: [facility] 12-22-2018 influenza, high dose seasonal, preservative-free Paulo Scott MD Work Phone: [facility] 12-21-[address] Paulo Scott Work Phone: [facility] 12-21-2018 Dr. Paulo english MD Work Phone: [facility] 12-05-2017 influenza, high dose seasonal, preservative-free Paulo Scott MD Work Phone: [facility] Work Phone: 11-29-2016 influenza, high dose seasonal, preservative-free Paulo Scott MD Work Phone: [facility] 11-29-2016 pneumococcal polysaccharide vaccine, 23 valent Paulo Scott MD Work Phone: [facility] 12-08-2015 influenza, high dose seasonal, preservative-free Paulo Scott MD Work Phone: [facility] 09-22-2015 pneumococcal conjuga te vaccine, 13 valent Paulo Scott MD Work Phone: [facility] 12-15-2014 influenza, injectabl e, quadrivalent, contains preservative Paulo Scott MD Work Phone: [facility] Work Phone: 12-23-2013 influenza, seasonal, injectable Paulo Scott MD Work Phone: [facility] Work Phone: 02-09-2013 influenza virus vaccine, unspecified formulation Paulo Scott MD Work Phone: [facility] 03-06-2012 zoster vaccine, live Paulo cuello MD Work Phone: [facility] Work Phone: 01-29-2012 influenza virus vaccine, unspecified formulation Paulo Scott MD Work Phone: [facility] Work Phone: 2011 influenza virus vaccine, unspecified formulation Paulo Scott MD Work Phone: [facility] Work Phone: 01-06-2009 influenza virus vaccine, whole virus Norman Garcia APRN.CNP Work Phone: [facility] 06-03-2008 hepatitis B vaccine, pediatric or pediatric/adolescent dosage Dr. Paulo Scott Work Phone: [facility] 02-09-2008 influenza virus vaccine, whole virus Norman Garcia APRN.CNP Work Phone: [facility] 01-15-2008 hepatitis B vaccine, pediatric or pediatric/adolescent dosage Dr. Paulo Scott Work Phone: [facility] 12-04-2007 hepatitis B vaccine, pediatric or pediatric/adolescent dosage Dr. Paulo Scott Work Phone: [facility] NEGATED: Highlighted row has not occurred!09-06-2022 tetanus toxoid, reduced diphtheria toxoid, and acellular pertussis vaccine, adsorbed Paulo Scott MD Work Phone: [facility] Work Phone: Comment on above: Deferred: Postponed Payers Date Payer Category Payer Self-pay [id number] 2020 Medicare ANTHEM MEDICARE ANTHEM MEDICARE SELECT [id number] 2020-Present [address] [address] [place] [address] [id number] 2016 [facility] ANTHEM OR DICARE SUPPLEMENT [id number] 2016 Unknown [facility] DICARE SUPPLEMENT [id number] 2016-Present [phone] [address] [place] [address] Indemnity [id number] 2016 Unknown ANTHEM ANTHEM ME DICARE SUPPLEMENT [id number] 2016-Present [phone] [address] [place] [address] Indemnity [id number] 2016 Unknown [id number] 2015 Medicare [id number] 2015 Medicare [id number] .[id number] 2015 Medicare [id number] Unknown [id number] Unknown [id number] 2.16.840.1.095392.3.579.2 .462 Unknown [id number] 2.16840.1.175271.3.579.2 .462 Unknown [id number] 2.16840.1.385227.3.579.2 .462 Unknown [id number] 2.16840.1.385998.3.579.2 .462 Unknown [id number] 2.16.840.1.320780.3.579.2 .462 Unknown [id number] 2.16840.1.599121.3.579.2 .462 Unknown [id number] 2.16840.1.111852.3.579.2 .462 Unknown [id number] 2.16840.1.436744.3.579.2 .462 Unknown [id number] 2.16.840.1.831517.3.579.2 .462 Unknown [id number] 2.16.840.1.225984.3.579.2 .462 Unknown [id number] 2.16.840.1.312352.3.579.2 .462 Unknown [id number] 2.16.840.1.812559.3.579.2 .462 Unknown [id number] 2.16.840.1.983491.3.579.2 .462 Unknown [id number] 2.16.840.1.011738.3.579.2 .462 Unknown [id number] 2.16.840.1.453739.3.579.2 .462 Unknown [id number] 2.16.840.1.969230.3.579.2 .462 Unknown [id number] 2.16.840.1.996249.3.579.2 .462 Unknown [id number] 2.16.840.1.196319.3.579.2 .462 Unknown [id number] 2.16.840.1.823208.3.579.2 .462 Unknown [id number] 2.16.840.1.796920.3.579.2 .462 Unknown [id number] 2.16.840.1.939929.3.579.2 .462 Unknown [id number] 2.16.840.1.262496.3.579.2 .462 Unknown [id number] 2.16.840.1.844107.3.579.2 .462 Unknown [id number] 2.16.840.1.553533.3.579.2 .462 Unknown [id number] 2.16.840.1.041472.3.579.2 .462 Unknown [id number] 2.16.840.1.372085.3.579.2 .462 Unknown [id number] 2.16.840.1.122734.3.579.2 .462 Unknown [id number] 2.16.840.1.429507.3.579.2 .462 Unknown [id number] 2.16.840.1.306331.3.579.2 .462 Unknown [id number] 2.16.840.1.089262.3.579.2 .462 Unknown [id number] 2.16.840.1.141637.3.579.2 .462 Unknown [id number] 2.16.840.1.370454.3.579.2 .462 Unknown [id number] 2.16.840.1.937649.3.579.2 .462 Unknown [id number] 2.16.840.1.428817.3.579.2 .462 Unknown [id number] 2.16.840.1.780941.3.579.2 .462 Unknown [id number] 2.16.840.1.841430.3.579.2 .462 Social History Date Type Detail Facility Start: 04-14-2020 End: 01-14-2025 Tobacco smoking status NHIS Never smoker [facility] Start: 04-14-2020 End: 04-26-2022 Tobacco use and exposure Never used [facility] Start: 1950 Sex Assigned At Not on file A [facility] Start: 06-11-2020 End: 12-01-2021 Exposure to SARS-CoV-2 (event) Not sure [facility] Start: 12-21-2020 End: 09-24-2024 Alcohol intake Current drinker of alcohol (finding) [facility] Start: 12-21-2020 End: 08-23-[address] [facility] Work Phone: Start: 12-28-2010 History SDOH Alcohol Comment occasionally rare [facility] Start: 09-18-2021 End: 06-19-2023 Tobacco smoking status KYIS Unknown if ever smoked [facility] Start: 05-23-2021 Occasional [facility] Start: 1950 Sex Assigned At Female W [facility] Start: 08-23-2022 End: 09-19-[address] [facility] Work Phone: Start: 02-16-2012 Adult Depression Screening Assessment 2 [facility] Work Phone: Start: 06-03-2024 [facility]: Highlighted row [facility] Medical Equipment Procedure Code Equipment Code [...] with exploration of common bile duct CLIP,LUISMARYBEL CHRSI WECK FDA Start: 02-10-2019 Total cholecystectomy with [...] Assessment Result Facility 01-03-2025 Functional status Ambulates [facility] Work Phone: 05-06-2022 Functional status Ambulates [facility] Work Phone: 08-19-2014 Are you deaf, or do you have serious difficulty hearing No 08/19/2014 10:45 AM Rosina Poe LPN No [facility] 08-19-2014 Are you blind, or do you have serious difficulty seeing, even when wearing glasses No 08/19/2014 10:45 AM Rosina Poe LPN No [facility] 08-19-2014 Do you have serious difficulty walking or climbing stairs No 08/19/2014 10:45 AM Rosina Poe LPN No [facility] 08-19-2014 Do you have difficul ty dressing or bathing No 08/19/2014 10:45 AM Rosina Poe LPN No [facility] 08-19-2014 Because of a physica l, mental, or emotional condition, do you have difficulty doing errands alone such as visiting a physician's office or shopping No 08/19/2014 10:45 AM Rosina Poe LPN No [facility] Mental Status Date Assessment Result Facility 01-13-2025 Cognitive function Awake [facility] Work Phone: 01-03-2025 Cognitive function Voice/Name [facility] Work Phone: 12-05-2024 Cognitive function Awake [facility] Work Phone: 08-22-2024 Cognitive function Level Of Cons ciousness Awake;Alert;Appropriate [facility] Work Phone: 04-08-2024 Cognitive function Awake;Alert;Appropriat e [facility] Work Phone: 04-23-2023 Cognitive function Voice/Name [facility] Work Phone: 05-06-2022 Cognitive function Appropriate [facility] Work Phone: 05-05-2022 Cognitive function Level Of Cons ciousness Awake;Alert;Appropriate;Fol lows Commands [facility] Work Phone: 04-24-2022 Cognitive function Level Of Cons ciousness Awake;Alert;Appropriate;Fol lows Commands [facility] Work Phone: 08-19-2014 Because of a physica l, mental, or emotional condition, do you have serious difficulty concentrating, remembering, or making decisions No 08/19/2014 10:45 AM EDT Rosina Jurado LPN No [facility] Clinical Notes 06-26-2011 to 01-03-2025 Note Date & Type Note Facility 01-03-2025 Procedure note [facility] 01-03-2025 Procedure note [facility] 01-03-2025 Discharge summary Note Date/Time January 03, 2025 3:26pm [facility] Medical Records Department [address] [place] [address] Discharge Summary 01/03/25 1158 MR#: [id number] Acct: [id number] Name: KESHIA ROJAS Rep #:[id number] : 1950 74 From: Clifton Tony PCP: Dr. Paulo Scott MD Status:AD M IN Location: [place] [id number] Providers Date of Admission: 12/27/24 Date of Discharge: 01/03/25 Primary Care Physician: Dr. Paulo Scott MD Consultations 12/27/24 15:21 Consult: Gastroenterology Routine Consulting Provider: [facility] Reason for Consult: GI bleed EMERGENT [...] ? Requested for PT OT eval and renal social worker to assist with discharge planning 18. 01/01: [...] (Auto) 67.0, Lymph % (Auto) 16.9 L, Weakley % (Auto) 8.0, Eos % (Auto) 7.1 [...] % (Auto) 58.6, Lymph % (Auto) 22.3, Weakley% (Auto) 10.1 H, Eos % (Auto) 7.6 [...] (Auto) 67.0, Lymph % (Auto) 16.9 L, Weakley % (Auto) 8.0, Eos % (Auto) 7.1 [...] in before D/C Order can be placed): Assisted Facility Charges/Coding Visit Charges Inpatient E&M: 90693 Disch Hosp >30min 01/03/25 1426 <Electronically signed by Clifton Wells MD> Cosigner Signature (if applicable): CC: Dr. Paulo Scott MD; Dr. Clifton Wells MD~ Signed [facility] Work Phone: 1(920) 253-142110-20-2025 Procedure [facility] 01-03-2025 Procedure [facility]10-20-2025 Discharge summary Author Clifton Wells [facility] Note Date/Time January 03, 2025 1 :54pm [facility] Medical Records Department [address] [place] [address] Transfer to [facility] Care MR#: [id number] Acct: [id number] Name: KESHIA ROJAS Rep #:[id number] : 1950 74 From: Clifton Tony PCP: Dr. Paulo Scott MD Status:AD M IN Certification of patient admission REQUIRED AT TIME OF ADMISSION. I CERTIFY THAT POST-HOSPITAL ECF SERVICES ARE REQUIRED TO BE GIVEN ON AN IN-PATIENT BASIS BECAUSE OF THE ABOVE NAMED PATIENT'S NEED FOR FPC CARE ON A CONTINUING BASIS FOR THE [...] ? Requested for PT OT eval and renal social worker to assist with discharge planning 18. 01/01: [...] (Auto) 67.0, Lymph % (Auto) 16.9 L, Weakley % (Auto) 8.0, Eos % (Auto) 7.1 [...] % (Auto) 58.6, Lymph % (Auto) 22.3, Weakley% (Auto) 10.1 H, Eos % (Auto) 7.6 [...] in before D/C Order can be placed): Assisted Facility 01/03/25 1256 <Electronically signed by Clifton Wells MD> Cosigner Signature (if applicable): CC: BINDERY MACHINE OPERATOR-C Sandie Rodriguez; BINDERY MACHINE OPERATOR-C Jacquelin Odell; Dr. Keshav Elizondo MD; Dr. Shelia Campos DO; Dr. Paulo Scott MD; Dr. Clifton Wells MD; LEONEL Esposito; Raul Casper DO ~ [facility] Work Phone: 1(796) 150-553210-20-2025 Consult note Author Arnie Rogel [facility] Note Date/Time January 03, 2025 6 :19pm [facility] Medical Records Department [address] [place] [address] Counseling Note - Pharmacy 01/03/25 1219 MR#: [id number] Acct: [id number] Name: KESHIA ROJAS Rep #:[id number] : 1950 74 From: Arnie Rogel PCP: Dr. Paulo Scott MD Status:AD M IN Y [facility] Service has performed discharge [...] Signature (if applicable): Date CC: ~ Signed [facility] Work Phone: 1(430) 697-525110-20-2025 Hospital Discharge instructionsAdditional Instructions Date of Discharge: 01/03/25[facility] Work Phone: 1(608) 544-332010-20-2025 [facility]10-[facility]-2025 Progress note Author Clifton Wells [facility] Note Date/Time January 02, 2025 1 2:19pm [facility] Medical Records Department [address] [place] [address] Progress Note - Hospitalist 01/02/25 1113 MR#: [id number] Acct: [id number] Name: KESHIA ROJAS Rep #:[id number] : 1950 74 From: Clifton Tony PCP: Dr. Paulo Scott MD Status:AD M IN Location: [place] [address] Reason for Visit Chief Complaint: Melena/abdominal pain [...] % (Auto) 58.6, Lymph % (Auto) 22.3, Weakley% (Auto) 10.1 H, Eos % (Auto) 7.6 [...] the left hemidiaphragm. Hiatal hernia. Reading Location: [id number] Physical Exam Narrative Seen and examined. Complain [...] ? Requested for PT OT eval and renal social worker to assist with discharge planning 18. 01/01: [...] % (Auto) 58.6, Lymph % (Auto) 22.3, Weakley% (Auto) 10.1 H, Eos % (Auto) 7.6 [...] 183 H Charges/Coding Visit Charges Inpatient E&M: 80051 Subs Hosp L2 10/19/25 1119 <Electronically signed by Clifton Wells MD> Cosigner Signature (if applicable): CC: ~ Signed [facility] Work Phone: 1(381) 475-448310-18-2025 Radiology Diagnostic study [facility]10-18-2025 Radiology Diagnostic study [facility]10-18-2025 Progress note Author Clifton Wells [facility] Note Date/Time January 01, 2025 8 :07pm [facility] Medical Records Department [address] [place] [address] Progress Note - Hospitalist 01/01/25 1223 MR#: [id number] Acct: [id number] Name: KESHIA ROJAS Rep #:[id number] : 1950 74 From: Clifton Tony PCP: Dr. Paulo Scott MD Status:AD M IN Location: [place] [address] Reason for Visit Chief Complaint: Melena/abdominal pain [...] ? Requested for PT OT eval and renal social worker to assist with discharge planning 18. Patient [...] 208 H Charges/Coding Visit Charges Inpatient E&M: 32907 Subs Hosp L2 01/01/257 <Electronically signed by Clifton Wells MD> Cosigner Signature (if applicable): CC: ~ Signed [facility] Work Phone: 1(309) 612-522910-17-2025 Progress note Author Keshav Elizondo [facility] Note Date/Time December 31, 2024 1 0:39am [facility] Medical Records Department [address] [place] [address] Progress Note - Hospitalist 12/31/24 0929 MR#: [id number] Acct: [id number] Name: KESHIA ROJAS Rep #:[id number] : 1950 74 From: Keshav Elizondo MD PCP: Dr. Paulo Scott MD Status:AD M IN Location: [place] [address] Reason for Visit Chief Complaint: Melena/abdominal pain [...] % (Auto) 64.9, Lymph % (Auto) 20.1, Weakley% (Auto) 9.7, Eos % (Auto) 4.2, Baso [...] ? Requested for PT OT eval and renal social worker to assist with discharge planning Time spent in the patient's overall evaluation,decision-making process, review of diagnostic data, adjustment of management, discussion with other providers, nursing nursing and ancillary staff involved in patient's care documentation, 52. Minutes Charges/Coding Visit Charges Inpatient E&M: 94419 Subs Hosp L3 12/31/24 0939 <Electronically signed by Keshav Elizondo MD> Cosigner Signature (if applicable): CC: ~ Signed [facility] Work Phone: 1(617) 105-867210-16-2025 Progress note Author Raul Friend [facility] Note Date/Time December 30, 2024 7 :52pm [facility] Medical Records Department [address] [place] [address] Progress Note 12/30/24 1849 MR#: [id number] Acct: [id number] Name: KESHIA ROJAS Rep #:[id number] : 1950 74 From: Raul Casper DO PCP: Dr. Paulo Scott MD Status:AD M IN Location: [facility] [id number] Progress Note A 74-year-old woman presents [...] fail to resolve. Visit Charges Inpatient E&M: 83168 Subs Hosp L3 12/30/24 5446 <Electronically signed by Raul Casper DO> Raul Friend DO Cosigner Signature (if applicable): CC: ~ Signed [facility] Work Phone: 1(816) 607-514710-16-2025 Progress note Author Keshav Elizondo [facility] Note Date/Time December 30, 2024 1 2:20pm [facility] Medical Records Department [address] [place] [address] Progress Note - Hospitalist 12/30/24 0829 MR#: [id number] Acct: [id number] Name: KESHIA ROJAS Rep #:[id number] : 1950 74 From: Keshav Elizondo MD PCP: Dr. Paulo Scott MD Status:AD M IN Location: [place] [address] Reason for Visit Chief Complaint: Melena/abdominal pain [...] % (Auto) 53.2, Lymph % (Auto) 27.7, Weakley% (Auto) 9.6, Eos % (Auto) 8.6 H, [...] 50. Minutes Charges/Coding Visit Charges Inpatient E&M: 39182 Subs Hosp L3 12/30/24 1120 <Electronically signed by Keshav Elizondo MD> Cosigner Signature (if applicable): CC: ~ Signed [facility] Work Phone: 1(186) 787-104510-15-2025 Progress note Author Keshav Elizondo [facility] Note Date/Time December 29, 2024 1 0:20am [facility] Medical Records Department [address] [place] [address] Progress Note - Hospitalist 12/29/24 0853 MR#: [id number] Acct: [id number] Name: KESHIA ROJAS Rep #:[id number] : 1950 74 From: Keshav Elizondo MD PCP: Dr. Paulo Scott MD Status:AD M IN Location: [place] [address] Reason for Visit Chief Complaint: Melena/abdominal pain [...] Neut % (Auto) 57.7, Lymph % (Auto) 24.2,Weakley % (Auto) 11.1 H, Eos % (Auto) [...] Subsegmental atelectasis left lower lobe. Reading Location: [facility] Physical Exam Narrative GENERAL: cooperative HEENT: Atraumatic; [...] 52. Minutes Charges/Coding Visit Charges Inpatient E&M: 53291 Subs Hosp L3 12/29/24 0920 <Electronically signed by Keshav Elizondo MD> Cosigner Signature (if applicable): CC: ~ Signed [facility] Work Phone: 1([phone] 560-680310-15-2025 Consult note Author Raul Casper [facility] Note Date/Time December 29, 2024 8 :44am [facility] Medical Records Department [address] [place] [address] Consultation - GI 12/27/24 1752 MR#: [id number] Acct: [id number] Name: KESHIA ROJAS Rep #:[id number] : 1950 74 From: Raul Casper DO PCP: Dr. 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 12/27/24 History chewable tablet (Azo Cranberry) [...] Neut % (Auto) 67.3, Lymph % (Auto) 21.4,Weakley % (Auto) 6.4, Eos % (Auto) 3.8, [...] Sl. Cloudy, Urine pH 6.0, Ur Specific [place] 1.020, Urine Protein 15 H, Urine Glucose [...] cysts. Status post subtotal gastrectomy. Reading Location: [facility] Assessment & Plan Assessment/Plan (1) GI bleed: [...] levels closely. Charges/Coding Visit Charges Inpatient E&M: 78781 Init Hosp L3 12/29/24 0744 <Electronically signed by Raul Friend DO> Cosigner Signature (if applicable): CC: Dr. Paulo Scott MD~ Signed [facility] Work Phone: [phone] 161-666710-15-2025 Consult note Author Ang Josue [facility] Note Date/Time January 03, 2025 6 :19pm [facility] Medical Records Department [address] [place] [address] Anesthesia Postop Eval II 12/28/242220 MR#: [id number] Acct: [id number] Name: KESHIA ROJAS Rep #:[id number] : 1950 74 From: Ang Josue MD PCP: Dr. Paulo Scott MD Status:AD M IN Y Race: C Location: [place] [address] 3-1 Anesthesia Postop Eval I Sum Postop [...] MD Cosigner Signature: Date CC: ~ Signed [facility] Work Phone: 1([phone]) 818-505910-14-2025 Consult note Author Ang [facility] Note Date/Time December 28, 2024 8 :20pm [facility] Medical Records Department [address] [place] [address] Anesthesia Postop Eval I 12/28/241917 MR#: [id number] Acct: [id number] Name: KESHIA ROJAS Rep #:[id number] : 1950 74 From: Ang Josue MD PCP: Dr. Paulo Scott MD Status:AD M IN Y Race: C Location: [place] [address] Anesthesia: Postop Eval I Current Vital Signs [...] MD Cosigner Signature: Date CC: ~ Signed [facility] Work Phone: [phone] 518-342010-14-2025 Consult note Author Ang [facility] Note Date/Time December 28, 2024 6 :55pm [facility] Medical Records Department [address] [place] [address] Pre-Anesthesia Evaluation 12/28/241741 MR#: [id number] Acct: [id number] Name: KESHIA ROJAS Rep #:[id number] : 1950 74 From: Ang Josue MD PCP: Dr. Paulo Scott MD Status:AD M IN Y Race: C Location: [place] [address] 3-1 ASA Classification* ASA Classification ASA Classification: [...] Procedure(s): EGD. 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 Hx Hospitalization Yes: 05/2022 BLE [facility] 01/14/24 [...] take am of surgery PONV PONV - solar resource assessor: PONV - solar resource assessor Female HX of Motion Sickness HX of N/V After Surgery Non-Smoker Duration of Surgery greater than 60 minutes Number of Risk Factors PONV Score Height & Weight Height & Weight: Anesthesia: Height & Weight Height 5 ft 4 in 12/28/24 09:22 Weight: 104.1 kg 12/28/24 09:22 Body Mass Index (BMI) 39.4 12/28/24 09:22 Respiratory Assessment Respiratory Assessment - solar resource assessor: Respiratory Tract Infection Hx - solar resource assessor Hx Respiratory Tract Infection No 12/28/24 09:24 STOP Sleep Apnea STOP Sleep Apnea - solar resource assessor: STOP Sleep Apnea - solar resource assessor Hx Hypertension Yes 12/27/24 15:34 Hx Sleep [...] Tobacco Use History Tobacco Use History - solar resource assessor: Tobacco Use History - solar resource assessor Tobacco Use Smoking Status Never smoker 12/27/24 15:34 Hx Tobacco Use No 12/27/24 15:34 Years Smoking Packs Smoked per Day Smoking Cessation Date was within the last 15 years Hx Smoking Cessation Date Hx Smoking Cessation No 12/27/24 15:34 Counseling Hematologic Medial History Hematologic Hx - solar resource assessor: 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 Hx of Blood Transfusion Yes 12/27/24 15:34 [...] confused, unrespo /Reproduction History /Reproductive History - solar resource assessor: /Reproductive Hx- solar resource assessor Hx Now No 12/28/24 09:24 Gestational Age [...] mls @ 15 mls/hr 12/28/24 13:23 IV .[id number] PRN Saline Flush Sodium Chloride 250 mls @ 15 mls/hr 12/28/24 13:23 IV .[id number] PRN Additional IVPB Infusion Insulin Glargine 10 unit 12/29/24 08:00 Insulin Glargine-Yfgn 100 Unit/Ml Pen SC DAILY [facility] Insulin Human Lispro 0 unit 12/27/24 18:00 12/28/24 16:14 Insulin Lispro 100 Unit/Ml Insuln.Pen SC Not Given Q6 [facility] Protocol Levothyroxine Sodium 88 mcg 12/28/24 06:00 12/28/24 04:57 Levothyroxine 88 Mcg Tablet PO Not Given DAILY@0600 [facility] Morphine Sulfate 2 - 4 mg 12/27/24 15:21 12/27/24 20:46 Morphine 2 Mg/Ml Syringe IV 2 mg Q3H PRN PRN Administration Pain Score 6-10 Multivitamins 1 tablet 12/28/24 08:00 12/28/24 09:08 Multivitamins,Therapeutic Tablet [facility] Ondansetron [facility] 4 mg 12/27/24 [...] cataract Ganglion cyst 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 Paulo Scott MD Status:AD M IN Location: [place] [address] Reason for Visit Chief Complaint: Melena/abdominal pain [...] Neut % (Auto) 67.3, Lymph % (Auto) 21.4,Weakley % (Auto) 6.4, Eos % (Auto) 3.8, [...] Sl. Cloudy, Urine pH 6.0, Ur Specific [place] 1.020, Urine Protein 15 H, Urine Glucose [...] % (Auto) 55.3, Lymph % (Auto) 28.6, Weakley% (Auto) 7.9, Eos % (Auto) 7.2 H, [...] cysts. Status post subtotal gastrectomy. Reading Location: [place] [address] Physical Exam Narrative GENERAL: cooperative HEENT: Atraumatic; [...] 52. Minutes Charges/Coding Visit Charges Inpatient E&M: 94507 Subs Hosp L3 12/28/24 1015 <Electronically signed by Keshav Elizondo MD> Cosigner Signature (if applicable): CC: ~ Signed [facility] Work Phone: 1(433) 779-474010-14-2025 Radiology Diagnostic study [facility]10-14-2025 Radiology Diagnostic study [facility]10-13-2025 History and physical note Author Shelia Campos [facility] Note Date/Time December 27, 2024 4 :51pm [facility] Medical Records Department [address] [place] [address] H&P Exam - Hospitalist 12/27/24 1440 MR#: [id number] Acct: [id number] Name: KESHIA ROJAS Rep #:[id number] : 1950 74 From: Shelia Campos DO PCP: Dr. Paulo Scott MD Status:AD M IN Location: [facility] [id number] HPI - General General Date of Admission: 12/27/24 Date of Service: 12/27/24 Chief Complaint: Melena/abdominal pain HPI Narrative KESHIA ROJAS, is a 74 F who presented to the emergency department [facility] on 12/28/2019 for chief complaint of [...] an expected hospitalization greater than 2 midnights. 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 Cloudy, Urine pH 6.0, Ur Specific [place] 1.020, Urine Protein 15 H, Urine Glucose [...] cysts. Status post subtotal gastrectomy. Reading Location: [facility] Assessment & Plan Assessment/Plan (1) GI bleed: [...] of admission Charges/Coding Visit Charges Inpatient E&M: 10690 Init Hosp L3 12/27/24 1551 <Electronically signed by Shelia Campos DO> Cosigner Signature (if applicable): CC: Dr. Shelia Campos DO; Dr. Paulo Scott MD~ Signed [facility] Work Phone: 1(594) 469-593410-13-2025 Discharge summary Author Shashi Veronica [facility] Note Date/Time December 27, 2024 4 :24pm [facility] Medical Records Department [address] [place] [address] Emergency Department Summary 12/27/24 MR#: [id number] Acct: [id number] Name: KESHIA ROJAS Rep #:[id number] : 1950 74 From: Shashi asif DO PCP: Dr. 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 Cloudy Urine pH 6.0 Ur Specific [place] 1.020 Urine Protein 15 H Urine Glucose [...] cysts. Status post subtotal gastrectomy. Reading Location: [place] [address] Discharge Plan Disposition Disposition: Acute Care Hospital [facility] Discharge Date/Time: 12/27/24 15:14 What to do if you have Problems For any increased pain, shortness of breath, bleeding, nausea or vomiting, chestpain, or any unexpected problems, contact your Primary Care Provider. Call [facility] ([phone]) or report to the closest Emergency Room. Call 911 if necessary. 12/27/24 1524 <Electronically signed by Shashi Veronica DO> Cosigner Signature (if applicable): CC: Dr. Paulo Scott MD ~ Signed [facility] Work Phone: 1(684) 930-671610-13-2025 Discharge summary Author [facility] Note Date/Time December 27, 2024 3 :24pm [facility] Medical Records Department [address] [place] [address] Emergency Department Summary 12/27/24 MR#: [id number] Acct: [id number] Name: KESHIA ROJAS Rep #:[id number] : 1950 74 From: Shashi asif DO PCP: Dr. 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) trimethoprim (From Bactrim) Allergy Unknown Verified 12/27/24 [...] % (Auto) 67.3 Lymph % (Auto) 21.4 Weakley % (Auto) 6.4 Eos % (Auto) 3.8 [...] Sl. Cloudy Urine pH 6.0 Ur Specific [place] 1.020 Urine Protein 15 H Urine Glucose [...] cysts. Status post subtotal gastrectomy. Reading Location: [facility] Discharge Plan Disposition Disposition: Acute Care Hospital [facility] Discharge Date/Time: 12/27/24 15:14 What to do if you have Problems For any increased pain, shortness of breath, bleeding, nausea or vomiting, chestpain, or any unexpected problems, contact your Primary Care Provider. Call [facility] ([phone]) or report to the closest Emergency Room. Call 911 if necessary. 12/27/24 1524 <Electronically signed by Shashi Veronica DO> Cosigner Signature (if applicable): CC: Dr. Paulo Scott MD ~ Signed [facility] Work Phone: 1(962) 278-452910-13-2025 Radiology Diagnostic study [facility]10-13-2025 Radiology Diagnostic study [facility]09-22-2025 NoteHNO ID: [id number] Author: PAULO SCOTT MD Service: ? Author [...] diabetic shoes and follows up with a commissioned sales associate for nail care. 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 Charlton) Cataracts, both eyes Coronary atherosclerosis of unspecified type of vessel, tanacross or graft minimal plaque on cath 08/06/2006 Diet-controlled diabetes mellitus ([facility]) 09/24/2024 DVT (deep venous thrombosis) ([facility]) 2010 Right leg OCTOBER 2009 NOT TREATED Dysmetabolic syndrome X Esophageal reflux Fibromyalgia better with Lyrica Floppy eyelid syndrome Hiatal hernia Large when seen on EGD 10/2010 at [facility] (Dr. Chavarria) Irritable bowel syndrome Obesity [...] mg capsule Take (more content not included)... [facility]09-21-2025 Discharge summary [facility] Medical Records Department [address] [place] [address] Emergency Department Summary 12/05/24 MR#: [id number] Acct: [id number] Name: KESHIA ROJAS Rep #:[id number] : [...] 12/09/24 0722 Cosigner Signature (if applicable): 12/05/24 3188 cc: Dr. Paulo Scott MD ~* Signed [...] this morning. She was at work at [employer] when she got lightheaded and nauseous and sat down. States her legs felt weak. She did not lose consciousness. EMS was called. She was able to ambulate to the cot. She denies any headache, vision changes, speech difficulty, focal numbness or weakness. Denies recent fever or chills. Denies chest pain, SOB, abdominal pain,vomiting, diarrhea. 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 Reading Location: [facility] Lab Data Lab results narrative: White count [...] 76.4 H Lymph % (Auto) 13.0 L Weak[place] % (Auto) 8.0 Eos % (Auto) 1.4 [...] Clarity Clear Urine pH 7.0 Ur Specific [place] 1.010 Urine Protein Negative Urine Glucose (UA) [...] IMPRESSION: No acute cardiopulmonary abnormalities. Reading Location: [facility] Treatment and Re-Evaluation :: Patient was turned over to pr at change of shift. Since patient's second [...] Q6H PRN (Reason: Pain) Primary Care Provider: aPulo Scott Referrals: Paulo Scott MD [Primary Care [...] worsen or new symptoms develop. Print Language: Cymro Disposition Disposition: Home, Self Care Discharge Date/Time: 12/05/24 16:27 What to do if you have Problems For any increased pain, shortness of breath, bleeding, nausea or vomiting, chestpain, or any unexpected problems, contact your Primary Care Provider. Call [facility] ([phone]) or report tothe closest Emergency Room. Call 911 if necessary. 12/07/24 0012 Cosigner Signature (if applicable): 12/05/24 1614 CC: Dr. Paulo Scott MD ~ Signed [facility]09-21-2025 Discharge summary Author Shanika Galicia [facility] Note Date/Time December 05, 2024 4:27pm [facility] Medical Records Department [address] [place] [address] Emergency Department Summary 12/05/24 MR#: [id number] Acct: [id number] Name: KESHIA ROJAS Rep #:[id number] : 1950 74 From: Shanika Galicia MD PCP: Dr. Paulo Scott MD Status:DE P ER Location: ED ADDENDUM by Dr. Tressa Chang DO on 12/09/24 at 0722 Urine culture resulted 50-80,000 CFU per mL E. coli. Patient has generalized weakness and nausea. Will be treated with 5-day course of Keflex. This is e-prescribed. 12/09/24 0722<Electronically signed by Tressa Chang DO> Cosigner Signature (if applicable): 12/05/24 5114 <Electronically signed by Luis Page MD> cc: Dr. Paulo Scott MD ~* Signed [facility] <Dr. Shanika Galicia MD - Last [...] this morning. She was at work at [employer] when she got lightheaded and nauseous and sat down. States her legs felt weak. She did not lose consciousness. EMS was called. She was able to ambulate to the cot. She denies any headache, vision changes, speech difficulty, focal numbness or weakness. Denies recent fever or chills. Denies chest pain, SOB, abdominal pain,vomiting, diarrhea. [facility] <Dr. 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 Reading Location: [id number] <Dr. Luis Page MD - Last Filed: 12/05/24 16:14> [facility] Lab Data Lab results narrative: White [...] 76.4 H Lymph % (Auto) 13.0 L [place] % (Auto) 8.0 Eos % (Auto) 1.4 [...] Clarity Clear Urine pH 7.0 Ur Specific [place] 1.010 Urine Protein Negative Urine Glucose (UA) [...] IMPRESSION: No acute cardiopulmonary abnormalities. Reading Location: [facility] Treatment and Re-Evaluation :: Patient was turned over to pr at change of shift. Since patient's second [...] worsen or new symptoms develop. Print Language: Cymro Disposition Disposition: Home, Self Care Discharge Date/Time: 12/05/24 16:27 What to do if you have Problems For any increased pain, shortness of breath, bleeding, nausea or vomiting, chestpain, or any unexpected problems, contact your Primary Care Provider. Call [facility] ([phone]) or report to the closest Emergency Room. Call 911 if necessary. 12/07/24 0012 <Electronically signed by Shanika Galicia MD> Cosigner Signature (if applicable): 12/05/24 1614 <Electronically signed by Daphney VARGAS> CC: Dr. Paulo Scott MD ~ Signed [facility] Work Phone: 1(378) 313-390809-21-2025 Radiology Diagnostic study note [facility] Imaging Services [address] [place] [address] Chest PA and Lateral MR#: [id number] Acct: [id number] Name: KESHIA ROJAS Rep #: [id number] : 1950 F 74 From: Gerald Shook MD PCP: Dr. Paulo Scott MD Status: RE G ER Study:Chest PA and Lateral Date of Exam: 12/05/24 Exam# [id number] Ordering Dr: Carlos Galicia MD PROCEDURE: CHEST [...] IMPRESSION: No acute cardiopulmonary abnormalities. Reading Location: [facility] CC: Dr. Shanika Galicia MD; Dr. Paulo Scott MD ~ Offset Machine Operator: Signed [facility]09-16-2025 Telephone encounter Note* Telephone Encounter - [...] 14 days. Authorizing Provider: PAULO SCOTT MD [facility]09-16-2025 Miscellaneous Notes* Telephone Encounter - Paulo [...] a week to get to her from [facility]. Patient requests a small supply to be sent to [facility] to get her through until mail away arrives. Pended both. Last OV: 09/24/2024 Next OV: 03/04/2025 Please review and adviseShae RN [facility] Telephone encounter Note * Telephone Encounter - Shae Palencia RN - 11/29/2024 8:37 AM EDT Patient calls to check on refill request for Gabapentin. Patient reports she only has 3 days left and prescription will take atleast a week to get to her from [facility]. Patient requests a small supply to be sent to [facility] to get her through until mail away arrives. Pended both. Last OV: 09/24/2024 Next OV: 03/04/2025 Please review and advisShae rick RN [facility]08-18-2025 Telephone encounter Note* Telephone Encounter - [...] Please advise. Thank you. Jeanna Hoover MA. [facility]08-18-2025 Miscellaneous Notes* Telephone Encounter - Jeanna [...] you. Jeanna Hoover MA. documented in this encounterSt. 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 [place], [place] [address] OFFICE VISIT Date of Service: 10/15/24 MR#: [id number] Acct: [id number] Name: KESHIA ROJAS Rep #: [id number] : 1950 Provider: LEONEL Lr Age/Sex: 74/F Location: [facility] Status: Signed HPI HPI History of [...] her feet. She is still working at [employer]. She works 4-5 days a week. She does not have any chest pain. She does have SOB with exertion and rest. She does have fatigue. She does have swelling in her feet.She recently had labs done at [facility]. 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 transplanted heart: tanacross heart Essential hypertension I10 Coding Level of Care Code Off vis,est,level 3 Diagnoses Atherosclerosis of tanacross coronary artery of tanacross heart without angina pectoris I25.10 Sun'Aq vs. transplanted heart: tanacross heart Essential hypertension I10 Clinical Quality Measures Falls Risk Screening/Assistive Devices Have you fallen in the past year?: No Cardiac Ejection fraction %: 65 10/15/24 1056 Florence CASTANEDA> Date _ Gina CASTANEDA Cosigner Signature: Date (if applicable) CC: ~ [facility]08-01-2025 Progress note Author Gina [facility] Services Note Date/Time October 15, 2024 10: 56am [facility] [address] [place] [address] OFFICE VISIT Date of Service: 10/15/24 MR#: [id number] Acct: [id number] Name: KESHIA ROJAS Rep #: [id number] : 1950 Provider: LEONEL Lr Age/Sex: 74/F Location: [facility] Status: Signed HPI HPI History of [...] her feet. She is still working at [employer]. She works 4-5 days a week. She does not have any chest pain. She does have SOB with exertion and rest. She does have fatigue. She does have swelling in her feet. She recently had labs done at [facility]. 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 transplanted heart: tanacross heart Essential hypertension I10 Coding Level of Care Code Off vis,est,level 3 Diagnoses Atherosclerosis of tanacross coronary artery of tanacross heart without angina pectoris I25.10 Sun'Aq vs. transplanted heart: tanacross heart Essential hypertension I10 Clinical Quality Measures Falls Risk Screening/Assistive Devices Have you fallen in the past year?: No Cardiac Ejection fraction %: 65 10/15/24 1056 <Electronically signed by Gina Reynoso> Date _ Gina CASTANEDA Cosigner Signature: Date (if applicable) CC: ~ [facility] Work Phone: 1(985) 422-405707-16-2025 NotePatient Outreach (INTMMN) KESHIA ROJAS ([id number]) 1950 F Date Time Provider Department 09/29/24 [...] BETADINE (POVIDONE-IODINE) 11/04/2006 2 - Rash CETACAINE ([id number]*09/11/2012 14 - Other: See Comments Comments: excessive [...] mandibular pain, lymphadenopathy, possible angio edema per [facility] ER note 04/24/2022 MECLIZINE 03/07/2006 7 [...] Date Reviewed: 09/24/2024 Reviewed by: Norman Garcia APRN.CEMENT PAVER - Fully Assessed Visit Diagnosis:Diet-controlled diabetes mellitus (HCC) [E11.9] Order(s):ALBUMIN/CREATININE RATIO, URINE [SQUACR] Order #: [id number] FUTURE Prescriptions as of 10/04/2024 - levothyroxine [...] 06/30/2011 IRRITABLE COLON [K58.9 (more content not included)...[facility] 09-24-2024 NoteHNO ID: [id number] Author: NORMAN GARCIA APRN.CEMENT PAVER Service: ? Author Type: Nurse Practitioner Type: [...] soreness. She is scheduled to see a commissioned sales associate on November 12 for further evaluation. Keshia has been experiencing difficulties with her mail-order thyroid medication, noting delays in delivery. 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 Recording using [employer] software for draft documentation of the visit was discussed with the patient/authorized treasury representative; all questions welcomed and answered. Patient/authorized treasury representative agreed to proceed Her medications were [...] mandibular pain, lymphadenopathy, possible angio edema per [facility] ER note 04/24/2022 Meclizine Swelling URINARY RETENTION,FACE FELT FUNNY Metoprol (more content not included)...[facility]07-11-2025 History of Present illness Narrative* Norman Garcia APRN.CEMENT PAVER - 09/24/2024 10:52 AM EDT SUBJECTIVE Keshia [...] soreness. She is scheduled to see a commissioned sales associate on November 12 for further evaluation. Keshia has been experiencing difficulties with her mail-order thyroid medication, noting delays in delivery. 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 Recording using [employer] software for draft documentation of the visit was discussed with the patient/authorized treasury representative; all questions welcomed and answered. 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 Free T3 2.6. Plan: - Synthroid 50 mcg po at home . 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 Davon Infante ([facility]) Cough - 07/11/2019 Comment: Reviewed that had stress test and was referred to dry mill worker for further evaluation of cough. Bilateral Leg [...] Esophagus Without Dysplasia Comment: 11/02/12 EGD at [facility] (Dr. Charlton) Dysphagia - 02/05/2012 Obesity [...] appointment.. Norman Garcia APRN-DARYL documented in this encounterSt. [facility]06-[facility] Telephone encounter Note * Telephone Encounter - Reshma Carson LPN - 08/31/2024 3:54 PM EDT PATIENT NOTIFIED OF SAME. [facility]06-17-2025 Miscellaneous Notes* Telephone Encounter - Reshma [...] can be sent to her local [facility] and the rest to her mail order pharmacy. Please call today with how provider will send the Rx's. [phone] Patient has been identified by name and [...] Thank you. Shalonda Haro. documented in this encounterSt. Charles Hospital06-17-2025 Telephone encounter Note * Telephone Encounter - Norman Garcia APRN.CNP - 08/31/2024 12:34 PM EDT Please let her know it has been sent. [facility]06-17-2025 Telephone encounter Note* Telephone Encounter - Shalonda Haro - 08/31/2024 10:35 AM EDT Patient is almost out and is asking if several pills can be sent to her local [facility] and the rest to her mail order pharmacy. Please call today with how provider will send the Rx's. [phone] Patient has been identified by name and [...] 09/24/2024 Please advise. Thank you. Shalonda Haro. [facility]06-16-2025 Telephone encounter Note* Telephone Encounter - Maribel Brown RN - 08/30/2024 9:10 AM EDT Contacted [facility] and verified that pt has picked up script on 08/26/24 for 30 tablets ofValium. No further action needed regarding valium medication at this time. Will close this encounter. Maribel Brown RN [facility]06-16-2025 Miscellaneous Notes* Telephone Encounter - Maribel Brown RN - 08/30/2024 9:10 AM EDT Contacted [facility] and verified that pt has picked [...] you. Arleen Hamm LPN. documented in this encounterSt. Charles Hospital06-13-2025 Telephone encounter Note * Telephone Encounter [...] RX sent or if current RX okay. [facility]06-13-2025 Telephone encounter Note* Telephone Encounter - [...] update, per her request. Maribel Brown RN [facility]06-12-2025 Telephone encounter Note* Telephone Encounter - [...] 21, 2024. Authorizing Provider: PAULO SCOTT MD [facility]06-12-2025 Telephone encounter Note* Telephone Encounter - [...] advise. Thank you. Arleen Hamm LPN. T [facility]06-11-2025 Telephone encounter Note* Telephone Encounter - [...] of the valium monthly. Shae Palencia RN\ [facility]06-11-2025 Miscellaneous Notes* Telephone Encounter - Shae [...] monthly. Shae Palencia RN\ documented in this encounterSt. Charles Hospital06-08-2025 Discharge summary [facility] Medical Records Department [address] [place] [address] Emergency Department Summary 08/22/24 MR#: [id number] Acct: [id number] Name: KESHIA ROJAS Rep #:[id number] : [...] is on no anticoagulants just baby aspirin. 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 Print Language: Cymro Disposition Disposition: Home, Self Care What to do if you have Problems For any increased pain, shortness of breath, bleeding, nausea or vomiting, chestpain, or any unexpected problems, contact your Primary Care Provider. Call [facility] ([phone]) or report tothe closest Emergency Room. Call 911 if necessary. 08/22/24 1608 Cosigner Signature (if applicable): CC: Dr. Crystal Paz MD; Dr. Paulo Scott MD ~ Signed [facility]06-08-2025 Discharge summary Author Deepak Mendez [facility] Note Date/Time August 22, 2024 4:08p [facility] Medical Records Department [address] [place] [address] Emergency Department Summary 08/22/24 MR#: [id number] Acct: [id number] Name: KESHIA ROJAS Rep #:[id number] : [...] is on no anticoagulants just baby aspirin. 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 Print Language: Cymro Disposition Disposition: Home, Self Care What to do if you have Problems For any increased pain, shortness of breath, bleeding, nausea or vomiting, chestpain, or any unexpected problems, contact your Primary Care Provider. Call [facility] ([phone]) or report to the closest Emergency Room. Call 911 if necessary. 08/22/24 1608 <Electronically signed by Deepak Mendez MD> Cosigner Signature (if applicable): CC: Dr. Crystal Paz MD; Dr. Paulo Scott MD ~ Signed [facility] Work Phone: 1(411) 790-616006-08-2025 Hospital Discharge instructions Additional Instructions Increase your MiraLAX while taking the prescription pain medication 2-3 capfuls twice daily and drink plenty of water.[facility] Work Phone: 1(963) 928-232904-04-2025 Evaluation note* Diagnosis Onset Date Resolution Status Admit Date Trochanteric bursitis, left hip acut e June 18, 2024 10:57am Abdominal pain chronic June 18, 2024 12:59pm Barretts esophagus chronic June 18, 2024 12:59pm [facility] Work Phone: 1(491) 802-868704-04-2025 Evaluation note* Diagnosis Onset Date Resolution Status Admit Date Trochanteric bursitis, left hip acut e June 18, 2024 10:57am Abdominal pain chronic June 18, 2024 12:59pm Barretts esophagus chronic June 18, 2024 12:59pm 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 Work Phone: 1([phone]) 122-529803-12-2025 Radiology Diagnostic study note [facility] Imaging Services [address] [place], [place] [address] Shoulder min 2 Views MR#: [id number] Acct: [id number] Name: KESHIA ROJAS Rep #: [id number] : 1950 F 74 From: Salo Singer MD PCP: Dr. Paulo Scott MD Status: RE G CLI Study:Shoulder min 2 Views Date of Exam: 05/26/24 Exam# [id number] Ordering Dr: Agus Paz MD PROCEDURE: SHOULDER [...] tuberosity of theproximal left humerus. Reading Location: [facility] CC: Dr. Crystal Paz MD; Dr. Paulo Scott MD ~ Offset Machine Operator: Signed [facility]03-07-2025 History of Present illness Narrative* Juan Rodriguez, TOBACCO GRADER.OVERLOCK HEMMER - 05/21/2024 1:20 PM EST SUBJECTIVE: Shingrix [...] and oriented to person, place, and time. Wireless Retail Manager present, NIMO. 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 Charlton) Cataracts, both eyes Coronary atherosclerosis of unspecified type of vessel, tanacross or graft minimal plaque on cath 08/06/2006 DVT (deep venous thrombosis) ([facility]) 2010 Right leg OCTOBER 2009 NOT TREATED Dysmetabolic syndrome X Esophageal reflux Fibromyalgia better with Lyrica Floppy eyelid syndrome Hiatal hernia Large when seen on EGD 10/2010 at [facility] (Dr. Chavarria) Irritable bowel syndrome Obesity [...] Lymph 1.00 - 4.00 k/uL 2.95 2.67 Weakley% % 10.2 8.2 Abs Weakley <0.87 k/uL 0.93 (H) 0.70 Eosin% % [...] 719.46, 338.29, ICD10: M25.562, G89.29 Following with [facility], getting injections in the knee joint [...] YR, HIGH DOSE, TRIVALENT (FLUZONE HIGH-DOSE) - [employer] COVID-19 VACCINE AGE 12+ YR (COMIRNATY) Juan Rodriguez APRN.CNS Medical Decision Making: Problems: Moderate: 2+ stable chronic illnesses Data: Unique test result(s) reviewed: 3+ Risk: Moderate: Drug management Medical Decision Making Level: 4 - Moderate documented in this encounterSt. Charles Hospital03-07-2025 NoteHNO ID: [id number] Author: JUAN RODRIGUEZ APRN.CNS Service: ? Author [...] and oriented to person, place, and time. Wireless Retail Manager present, NIMO. ALLERGIES Allergen Reactions Adhesive [...] mandibular pain, lymphadenopathy, possible angio edema per [facility] ER note 04/24/2022 Meclizine Swelling URINARY RETENTION,FACE FELT FUNNY Metoprolol GI Upset headache.itching.hives. Myrbetriq [Mirabegr* Other: See Comments elevated BP Prevacid [Lansopraz* GI Upset GAS,BURPING HEADACHE Prilosec [Omeprazol* Diarrhea Tape [Adhesive Tape* Rash Paper (more content not included)...[facility]12-20-2024 History of Present illness Narrative* Geoffrey Bond [...] PATIENT PRESENTS WITH AN IMPLANTABLE OR ATTACHED SIGN WRITER HAND: No RADIOLOGY DEPARTMENT: Mammography PERIPHERAL IV DATA: Not applicable SIGNED BY: Tova Valenzuela March 05, 2024 1:40 PM documented in this encounterSt. Charles Hospital12-20-2024 NoteHNO ID: [id number] Author: GEOFFREY BOND Mammo Tech Service: ? Author Type: Sausage Smoker Type: Progress Notes Filed: 03/05/2024 13:40 Note [...] PATIENT PRESENTS WITH AN IMPLANTABLE OR ATTACHED SIGN WRITER HAND: No RADIOLOGY DEPARTMENT: Mammography PERIPHERAL IV DATA: Not applicable SIGNED BY: Tova Valenzuela March 05, 2024 1:40 [facility]12-12-2024 Telephone encounter Note* Telephone Encounter - Paulo [...] 25, 2024. Authorizing Provider: PAULO SCOTT MD [facility]12-12-2024 Miscellaneous Notes* Telephone Encounter - Paulo [...] 23, 2024 3:05 PM documented in this encounterSt. Charles Hospital12-09-2024 Telephone encounter Note * Telephone Encounter [...] Jim LPN February 23, 2024 3:[address] [facility]12-06-2024 Evaluation note* Diagnosis Onset Date Resolution Status Admit Date Diarrhea acute February 20, 2024 1:02pm Abdominal pain chronic February 192023 1:02pm Barretts esophagus chronic Decemb er 2023 1:02pm Right knee DJD acute February 152023 10:26am Right knee DJD acute April 022024 8:59am Right knee DJD acute April 092024 10:36am Right knee DJD acute April 162024 9:19am [facility] Work Phone: 1(780) 869-565412-06-2024 Telephone encounter Note* Telephone Encounter - Nicole Herrera LPN - 02/20/2024 11:20 AM EST Patient calling has not received her mail away pharmacy has not processed her Gabapentin rx as yet.She is out of the 7 day rx sent locally, now needs another rx sent locally. [facility] and [facility] it sent to her. Pending rx to go to [facility]. Please advise The patient has been identified [...] Herrera LPN February 20, 2024 11:[address] [facility]12-06-20[facility] Miscellaneous Notes* Telephone Encounter - Nicole Herrera LPN - 02/20/2024 11:20 AM EST Patient calling has not received her mail away pharmacy has not processed her Gabapentin rx as yet.She is out of the 7 day rx sent locally, now needs another rx sent locally. [facility] and get it sent to her. Pending rx to go to [facility]. Please advise The patient has been identified [...] 20, 2024 11:26 AM documented in this encounterSt. Charles Hospital11-27-2024 Telephone encounter Note * Telephone Encounter - Erika Polk LPN - 02/11/2024 1:44 PM EST Left a message that medication has been sent to the pharmacy. Erika Polk LPN [facility]11-27-2024 Miscellaneous Notes* Telephone Encounter - Erika [...] her gabapentin ref[facility] and [facility] her[facility] will [facility] days. Reports she is out of medication and asking pcp to send short supplyto [facility]. Pended. documented in this encounterSt. Charles Hospital11-27-2024 Telephone encounter Note * Telephone Encounter - Paulo Scott MD - 02/11/2024 1:17 PM EST The following approved medication requests have been transmitted electronically. Requested Prescriptions Signed Prescriptions Disp Refills gabapentin (NEURONTIN) 100 mg capsule 21 capsule 0 Sig: Take 3 capsules by mouth daily at bedtime for 180 days. Authorizing Provider: PAULO SCOTT MD [facility]11-27-2024 Telephone encounter Note* Telephone Encounter - Marisel Randall RN - 02/11/2024 10:26 AM EST Patient reports she has not received her gabapentin refill from mail order and [facility] tells hershe will receive it in 7 days. Reports she is out of medication and asking pcp to send short supplyto [facility]. Pended. 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 Free T3 2.6. Plan: - Synthroid 50 mcg po at home . 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 Davon Infante ([facility]) Cough - 07/11/2019 Comment: Reviewed that had stress test and was referred to dry mill worker for further evaluation of cough. Bilateral Leg [...] Esophagus Without Dysplasia Comment: 11/02/12 EGD at [facility] (Dr. Charlton) Dysphagia - 02/05/2012 Obesity [...] appointment.. Norman Garcia APRN-DARYL documented in this encounterSt. Charles Hospital08-27-2024 Telephone encounter Note * Telephone Encounter [...] Salena Rowan November 11, 2023 10:[address] [facility]08-27-20[facility] Miscellaneous Notes* Telephone Encounter - Salena [...] 11, 2023 10:20 AM documented in this encounterSt. Charles Hospital08-02-2024 History of Present illness Narrative* Juan Rodriguez, GIDEON.OVERLOCK HEMMER - 10/17/2023 10:20 AM EDT SUBJECTIVE: Depression [...] has been taking lactulose per Dr. Casper plant accountant. She notes limited fluid intake yesterday due [...] and oriented to person, place, and time. Wireless Retail Manager present, NIMO. ALLERGIES Allergen Reactions Adhesive [...] mandibular pain, lymphadenopathy, possible angio edema per [facility] ER note 04/24/2022 Meclizine Swelling URINARY [...] esophagus without dysplasia Comment: 11/02/12 EGD at [facility] (Dr. Charlton) No date: Cataracts, both eyes No date: Coronary atherosclerosis of unspecified type of vessel, tanacross or graft Comment: minimal plaque on cath 08/06/2006 2010: DVT (deep venous thrombosis) ([facility]) Comment: Right leg OCTOBER 2009 NOT TREATED No date: Dysmetabolic syndrome X No date: Esophageal reflux No date: Fibromyalgia Comment: better with Lyrica No date: Floppy eyelid syndrome No date: Hiatal hernia Comment: Large when seen on EGD 10/2010 at [facility] (Dr. Chavarria) No date: Irritable bowel syndrome [...] Abs Lymph 1.00 - 4.00 k/uL 2.95 Weakley% % 10.2 Abs Weakley <0.87 k/uL 0.93 (H) Eosin% % 8.0 [...] Level: 3 - Low documented in this encounterSt. [facility]08[facility] Telephone encounter Note * Telephone Encounter [...] today 10-17-23 with provider/team. Erika Polk LPN [facility] Miscellaneous Notes* Telephone Encounter - Erika [...] scheduled for apt today 10-17-23 with provider/team. Eirka Polk LPN documented in this encounterSt. Charles Hospital07-08-2024 Telephone encounter Note * Telephone Encounter [...] 24, 2023. Authorizing Provider: PAULO SCOTT MD [facility] Miscellaneous Notes* Telephone Encounter - Paulo [...] 09/17/23 and rx for diazepam when to [facility] instead of [facility]. Pt is asking if rx can be sent to [facility] instead. Jessica Saini LPN documented in this encounterSt. Charles Hospital07-08-2024 Telephone encounter Note * Telephone Encounter - Jessica Saini LPN - 09/22/2023 9:33 AM EDT Pt calls to report that she had OV 09/17/23 and rx for diazepam when to [facility] instead of [facility]. Pt is asking if rx can be sent to [facility] instead. Jessica Saini LPN 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 hCarlton) Cataracts, both eyes Coronary atherosclerosis of unspecified type of vessel, tanacross or graft minimal plaque on cath 08/06/2006 DVT (deep venous thrombosis) ([facility]) 2010 Right leg OCTOBER 2009 NOT TREATED Dysmetabolic syndrome X Esophageal reflux Fibromyalgia better with Lyrica Floppy eyelid syndrome Hiatal hernia Large when seen on EGD 10/2010 at [facility] (Dr. Chavarria) Irritable bowel syndrome Obesity [...] Lymph 1.00 - 4.00 k/uL 2.95 2.67 Weakley% % 10.2 8.2 Abs Weakley <0.87 k/uL 0.93 (H) 0.70 Eosin% % [...] To follow up with Dr. Reilly fowler [facility]. To get a brace 4. Vertigo R42 [...] lipids. Paulo Scott MD documented in this encounterSt. Charles Hospital06-06-2024 Telephone encounter Note * Telephone Encounter [...] by mouth once daily. Paulo Scott MD [facility] Miscellaneous Notes* Telephone Encounter - Paulo [...] Scott MD * Telephone Encounter - [place] Zule[place] Rowan - 08/21/2023 10:12 AM EDT [...] Thank you. Zuleika Rowan. documented in this encounterSt. Charles Hospital06-06-2024 Telephone encounter Note * Telephone Encounter - [place] Zule[place] Rowan - 08/21/2023 10:12 AM EDT [...] 09/17/2023 Please advise. Thank you. Zuleika Rowan. [facility] Instructions* Patient Instructions* Whit Demarco PA [...] week if symptoms persist. documented in this encounterSt. Charles Hospital05-07-2024 History of Present illness Narrative* Jodi [...] PATIENT PRESENTS WITH AN IMPLANTABLE OR ATTACHED SIGN WRITER HAND: No RADIOLOGY DEPARTMENT: General X-ray: Exam(s) Completed: Lower Extremity X- Ray(s): Knee, AP / Lat / Tunne / Merchant Bilateral and Wt. Bearing PERIPHERAL IV DATA: Not applicable SIGNED BY: RT Marlyn(R) July 22, 2023 4:41 PM documented in this encounterSt. 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 Charlton) Cataracts, both eyes Coronary atherosclerosis of unspecified type of vessel, tanacross or graft minimal plaque on cath 08/06/2006 DVT (deep venous thrombosis) ([facility]) 2010 Right leg OCTOBER 2009 NOT TREATED Dysmetabolic syndrome X Esophageal reflux Fibromyalgia better with Lyrica Floppy eyelid syndrome Hiatal hernia Large when seen on EGD 10/2010 at [facility] (Dr. Chavarria) Irritable bowel syndrome Obesity [...] [Aspirin-Dipyridamole], Bactrim [Sulfamethoxazole- Trimethoprim], Betadine [Povidone-Iodine], Cetacaine [Mspcikdc-Tvwosvkyzm-Pmnvwpkkto], Cigarette Smoke, Codeine, Cortisone, Depo- Medrol [Methylprednisolone], [...] ER evaluation. LEONEL Cerda documented in this encounterSt. Charles Hospital04-22-2024 Telephone encounter Note * Telephone Encounter - Jeanna Hoover MA - 07/07/2023 8:43 AM EDT Fax received for PA approval Jeanna Hoover MA [facility]04-22-2024 Miscellaneous Notes* Telephone Encounter - Jeanna Hoover MA - 07/07/2023 8:43 AM EDT Fax received for PA approval Jeanna Hoover MA * Telephone Encounter - Ama Vang LPN - 07/04/2023 12:09 PM EDT Electronic PA rec'd and completed for lidocaine 5% patches. documented in this encounterSt. Charles Hospital04-19-2024 Telephone encounter Note * Telephone Encounter - Ama Vang LPN - 07/04/2023 12:09 PM EDT Electronic PA rec'd and completed for lidocaine 5% patches. [facility] Instructions* Patient Instructions* Norman Garcia APRN.CEMENT PAVER - 07/04/2023 11:14 AM EDT Keep follow up but return sooner if pain persistent/not improving. Follow up with pain management. Can do heat or ice to the area. Rest as able. Start the medrol dose pack to help reduce inflammation. You can also take the muscle relaxer as needed. Can try lidocaine patches too. documented in this encounterSt. Charles Hospital04-19-2024 History of Present illness Narrative* Norman [...] a fall. She was seen in the [facility] ER 06/18. She is using a walker. 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 Free T3 2.6. Plan: - Synthroid 50 mcg po at home . 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 Davon Infante ([facility]) Cough - 07/11/2019 Comment: Reviewed that had stress test and was referred to dry mill worker for further evaluation of cough. Bilateral Leg [...] Esophagus Without Dysplasia Comment: 11/02/12 EGD at [facility] (Dr. Charlton) Dysphagia - 02/05/2012 Obesity [...] medications.. Norman Garcia APRN-DARYL documented in this encounterSt. Charles Hospital04-19-2024 Miscellaneous Notes* Telephone Encounter - Maribel Brown RN - 07/04/2023 8:48 AM EDT Appointment rescheduled for today with different provider. Maribel Brown RN documented in this encounterSt. Charles Hospital02-13-2024 Miscellaneous Notes* Telephone Encounter - Arleen Hamm LPN - 04/29/2023 10:50 AM EST TC to Keshia, advised that Diazepam (Valium) RX was sent to [facility], 04/27/2023. Patient will check with pharmacy. Arleen Hamm LPN documented in this encounterSt. Charles Hospital02-07-2024 Procedure [facility]02-07-20[facility]02-07-2024 [facility]02-07-2024 Procedure [facility]12-11-2023 Miscellaneous Notes* Telephone Encounter - Rea [...] message. Jessica Saini LPN documented in this encounterSt. Charles Hospital12-08-2023 Miscellaneous Notes* Addendum Note - Juan Rodriguez APRN.CNS - 02/21/2023 2:55 PM ESTAddended by: JUAN RODRIGUEZ on: 02/21/2023 02:55 PM Modules accepted: Orders documented in this encounterSt. Charles Hospital12-08-2023 History of Present illness Narrative* Juan [...] health. She was seen by Dr. Casper plant accountant September and October 2022 for abdominal pain and Sarmiento'sesophagus. Has follow up visit this month. She was seen by [place] [facility] Ellen Estrella CMP January 31, 2023 for follow-up . Will complete a Holter for dizziness. She has cataract surgery 2022. Dr Aquino doing surgery. She notes leg pain and swelling at work. Wearing compression socks and taking gabapentin which are helping somewhat. She notes seeing Dr. 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 Charlton) Cataracts, both eyes Coronary atherosclerosis of unspecified type of vessel, tanacross or graft minimal plaque on cath 08/06/2006 DVT (deep venous thrombosis) ([facility]) 2010 Right leg OCTOBER 2009 NOT TREATED Dysmetabolic syndrome X Esophageal reflux Fibromyalgia better with Lyrica Floppy eyelid syndrome Hiatal hernia Large when seen on EGD 10/2010 at [facility] (Dr. 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 Encounter for immunization - ICD9: V03.89, [...] Level: 4 - Moderate documented in this encounterSt. Charles Hospital11-29-2023 Miscellaneous Notes* Telephone Encounter - Paulo [...] - 02/12/2023 9:58 AM EST Patient reports [facility] tells her, her gabapentin refill is stuck in [place]. Pharmacy advised patient to ask pcp to send short supply to local pharmacy, a 10 day supply. Pended for LIANA Menard, per patient request. Patient reports she is out of medication. documented in this encounterSt. Charles Hospital08-28-2023 Miscellaneous Notes* Telephone Encounter - Hillary [...] we wouldbe able to get them from [facility]. I let her know we have a lot of labs in that had been ordered by Dr Casper. She states Dr Casper told her she she had an infection. documented in this encounterSt. Charles Hospital08-12-2023 Miscellaneous Notes* Telephone Encounter - Paulo [...] advise. Brayan Larson LPN documented in this encounterSt. Charles Hospital07-06-2023 History of Present illness Narrative* Ryan [...] mandibular pain, lymphadenopathy, possible angio edema per [facility] ER note 04/24/2022 Meclizine Swelling URINARY [...] (1.5cm to 0.5cm) distributed from the right sabianist to below the right lip. Tiny ulceration [...] POWDER Ryan Chicas MD documented in this encounterSt. Charles Hospital07-05-2023 Miscellaneous Notes* Telephone Encounter - America [...] you. America Angel LPN documented in this encounterSt. Charles Hospital07-03-2023 Miscellaneous Notes* Letter - Mammography Coordinator - 09/16/2022 8:29 AM EDT September 16, 2022 PID: [id number] Keshia Rojas [address] [place] [address] Dear Ms. Rojas, We are pleased to [...] report will [facility] as part of your permanent medical record and are available for your continuing care. Thank you for allowing us to help in meeting your health care needs. Sincerely, Dr. Tracy Interpreting Radiologist [facility] (Normal over 40) documented in this encounterSt. Charles Hospital06-30-2023 History of Present illness Narrative* Bethany [...] 13, 2022 1:02 PM documented in this encounterSt. Charles Hospital06-28-2023 Miscellaneous Notes* Telephone Encounter - Erika Polk LPN - 09/11/2022 8:15 AM EDT Records show valid rx at the pharmacy. .me documented in this encounterSt. Charles Hospital06-06-2023 Miscellaneous Notes* Telephone Encounter - Norman Garcia APRN.DARYL - 08/20/2022 2:22 PM EDT Script sent. * Telephone Encounter - Shae Palencia RN - 08/19/2022 11:31 AM EDT Patient calls and reports that she is not happy with [facility] services and is changing pharmacies to [facility]. Shae Palencia, RN * Telephone Encounter - Reshma Carson LPN - 08/19/2022 11:07 AM EDT Attempted to reach patient to ask as to why switch is needed with no answer and unable to leave a message. * Telephone Encounter - Madison Torres Pss - 08/19/2022 10:57 AM EDT Patient needs her Valium rx switched to [facility] in [place]. Refill date is tomorrow, 08/19/22. documented in this encounterSt. Charles Hospital05-16-2023 Miscellaneous Notes* Telephone Encounter - Arleen [...] you. Arleen Hamm LPN documented in this encounterSt. Charles Hospital03-11-2023 Miscellaneous Notes* Telephone Encounter - Hillary [...] Requesting a short supply to go to [facility] and 90 day supply to [facility] mail away. * Telephone Encounter - [...] was 146/90. PT also coming to the [facility] and checks bp. Patient notes that bp [...] 05/22/2022 3:29 PM EST VANNESA Alexis @ [facility] calling to let provider know patient discharged by OT today. Her BP was 144/96 P 77 prior to therapy. No re-check done. Tricia Crockett RN documented in this encounterSt. Charles Hospital03-08-2023 Miscellaneous Notes* Telephone Encounter - Norman [...] advise. Reshma Carson LPN documented in this encounterSt. Charles Hospital03-03-2023 History of Present illness Narrative* Paulo Scott MD - 05/17/2022 3:43 PM EST This note was created using Icanbesponsoredriter. Subjective Keshia Rojas is a 72 year old female. Patient presents with: Established Patient: Follow up BLE weakness and pain SUBJECTIVE: Keshia Rojas is a 72 year old year old lady here today for hospital follow up appointment for review of medical conditions. States that had pain in legs with exacerbation of swelling despite wearing support hose. Inez like someone was punching her in back of her calves. Had to have the stockings taken off since was contributing to the pain. Eyes rolled in back of her head. 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 Chartlon) Cataracts, both eyes Coronary atherosclerosis of unspecified type of vessel, tanacross or graft minimal plaque on cath 08/06/2006 DVT (deep venous thrombosis) ([facility]) 2010 Right leg OCTOBER 2009 NOT TREATED Dysmetabolic syndrome X Esophageal reflux Fibromyalgia better with Lyrica Floppy eyelid syndrome Hiatal hernia Large when seen on EGD 10/2010 at [facility] (Dr. Chavarria) Irritable bowel syndrome Obesity [...] sleep. Paulo Scott MD documented in this encounterSt. Charles Hospital02-23-2023 Miscellaneous Notes* Telephone Encounter - Adalgisa Alston LPN - 05/09/2022 1:31 PM EST Attempted to contact Vanesa [phone] but no answer. Left providers message and [...] - 05/09/2022 10:09 AM EST Vanesa with [facility], OT calling with the followin)plan of [...] walking and pain. 3)Requesting verbal order for mental health social worker to come in for emotional support.If calling with verbalorder approval -today please call Vanesa [phone] okay to leave a message -calling with verbal order tomorrow call Shelia [phone] okay to leave a message. Erika Polk LPN documented in this encounterSt. Charles Hospital02-21-2023 Miscellaneous Notes* Telephone Encounter - Juan Rodriguez APRN.CNS - 05/07/2022 4:43 PM EST Noted, [place] * Telephone Encounter - Erika Polk LPN - 05/07/2022 4:22 PM EST Norma with [facility], PT called with a plan of care for pt. They will be seenign pt 2 times a week for 3 weeks for lower extremities strengthening, gait and training, balance and endurance. No call back needed Erika Polk LPN documented in this encounterSt. Charles Hospital02-20-[address] Campos [facility] May 06, 2022 12:05pm Note Date/Time May 06, 2022 12:03pm [facility] Medical Records Department [address] [place] [address] Discharge Summary 05/06/22 1156 MR#: [id number] Acct: [id number] Name: KESHIA ROJAS Rep #:[id number] : 1950 72 From: Shelia Campos DO PCP: Dr. Paulo Scott MD Status:HOLLIS TRAMMELL Location: [facility] [place] [id number] Providers Date of Admission: 05/05/22 Date of [...] by a customer and her boss to [facility] and came to the hospital. She has [...] % (Auto) 65.4, Lymph % (Auto) 21.7, Weakley % (Auto) 6.9, Eos % (Auto) 4.8, [...] Clarity Clear, Urine pH 6.0, Ur Specific [place] 1.010, Urine Protein Negative, Urine Glucose (UA) [...] 37.9 L, Lymph % (Auto) 42.9 H, Weakley % (Auto) 9.0, Eos % (Auto) 9.0 [...] Health Service Charges/Coding Visit Charges Inpatient E&M: 46896 Disch Hosp 05/06/22 1205 <Electronically signed by Shelia Campos DO> Cosigner Signature (if applicable): CC: Dr. Shelia Campos DO; Dr. Paulo Scott MD~ Signed [facility] Work Phone: 1(785) 746-348002-19-2023 History and physical note Author Dr. Bernabe [facility] May 05, 2022 9:18pm Note Date/Time May 05, 2022 5:50pm [facility] Medical Records Department [address] [place] [address] H&P Exam - Hospitalist 05/05/22 1750 MR#: [id number] Acct: [id number] Name: KESHIA ROJAS Rep #:[id number] : 1950 72 From: Yuridia Bernabe MD PCP: Dr. Paulo Scott MD Status:[facility] Location: [facility] [place] [id number] HPI - General General Date of Admission: [...] X-rays of both knees show degenerative changes. [facility] Medical History Anemia Arthritis Atherosclerotic heart disease of tanacross coronary artery without angina pectoris Barretts esophagus [...] % (Auto) 65.4, Lymph % (Auto) 21.7, Weakley % (Auto) 6.9, Eos % (Auto) 4.8, [...] Clarity Clear, Urine pH 6.0, Ur Specific [place] 1.010, Urine Protein Negative, Urine Glucose (UA) [...] at the bedside. Visit Charges Inpatient E&M: 18695 Init Hosp L3 05/05/222117 <Electronically signed by Yuridia Bernabe MD> Cosigner Signature (if applicable): CC: Dr. Yuridia Bernabe MD; Dr. Paulo Scott MD~ Signed [facility] Work Phone: [phone]) 657-226602-19-2023 Discharge summary Author La Nena Collazo [facility] May 05, 2022 5:48pm Note Date/Time May 05, 2022 1:22pm [facility] Medical Records Department [address] [place] [address] Emergency Department Summary 05/05/22 MR#: [id number] Acct: [id number] Name: KESHIA ROJAS Rep #:[id number] : 1950 72 From: La Nena CASTANEDA PCP: Dr. Paulo Scott MD Status:RE G ER Location: ED HPI <LEONEL Rachel - Last Filed: 05/05/22 17:48> History of Present Illness Chief Complaint: Dizziness Narrative Narrative: 72-year-old female with PMH of HTN, hypothyroidism presents with bilateral lowerextremity pain and lightheadedness. She started her shift at [employer] [facility] around 8AM and felt fine. About 2 [...] lisinopril was discontinued and she started Norvasc. [facility] <LEONEL Rachel - Last Filed: 05/05/22 17:48> [facility] Medical History Anemia Arthritis Atherosclerotic heart disease of tanacross coronary artery without angina pectoris Barretts esophagus [...] obtaining)] 96 Pulse Ox Oxygen Delivery Method [facility] <LEONEL Rachel - Last Filed: 05/05/22 17:48> [facility] Narrative Medical decision making narrative: Patient complained [...] % (Auto) 65.4 Lymph % (Auto) 21.7 Weakley % (Auto) 6.9 Eos % (Auto) 4.8 [...] Clarity Clear Urine pH 6.0 Ur Specific [place] 1.010 Urine Protein Negative Urine Glucose (UA) [...] (Auto) Neut % (Auto) Lymph % (Auto) Weakley % (Auto) Eos % (Auto) Baso % (Auto) Absolute Neuts (auto) Absolute Lymphs (auto) Nucleated RBC % Sodium Potassium Chloride Carbon Dioxide Anion Gap BUN Creatinine Estim Creat Clear Calc Est GFR (MDRD) Af Amer Est GFR (MDRD) Non-Af BUN/Creatinine Ratio Glucose Calcium Total Creatine Kinase 186 Troponin I High Sens 4 Urine Color Urine Clarity Urine pH Ur Specific [place] Urine Protein Urine Glucose (UA) Urine Ketones [...] Ellie Mullins, - Last Filed: 05/05/22 16:15> [facility] Lab Data Attestation: I reviewed the patient's lab results. Lab results narrative: I have personally performed a face to face assessment of the patient and have reviewed the EULALIA Note. I performed a substantive portion of the visit including all aspects of the following. My sy findings include: History is [patient seen in conjunction with physician pest controller assistant. Patient presented to the emergency department [...] % (Auto) 65.4 Lymph % (Auto) 21.7 Weakley % (Auto) 6.9 Eos % (Auto) 4.8 [...] Clarity Clear Urine pH 6.0 Ur Specific [place] 1.010 Urine Protein Negative Urine Glucose (UA) [...] (Auto) Neut % (Auto) Lymph % (Auto) Weakley % (Auto) Eos % (Auto) Baso % (Auto) Absolute Neuts (auto) Absolute Lymphs (auto) Nucleated RBC % Sodium Potassium Chloride Carbon Dioxide Anion Gap BUN Creatinine Estim Creat Clear Calc Est GFR (MDRD) Af Amer Est GFR (MDRD) Non-Af BUN/Creatinine Ratio Glucose Calcium Total Creatine Kinase 186 Troponin I High Sens 4 Urine Color Urine Clarity Urine pH Ur Specific [place] Urine Protein Urine Glucose (UA) Urine Ketones [...] walking, Dizziness Disposition Disposition: Acute Care Hospital [facility] What to do if you have Problems For any increased pain, shortness of breath, bleeding, nausea or vomiting, chest pain, or any unexpected problems, contact your Primary Care Provider. Call [facility] ([phone]) or report to the closest Emergency Room. Call 911 if necessary. 05/05/22 1748 <Electronically signed by La Nena CASTANEDA> Cosigner Signature (if applicable): 05/05/22 1648 <Electronically signed by Ellie Mullins DO> CC: Dr. Paulo Scott MD ~ Signed [facility] Work Phone: 1(370) 876-465802-19-2023 Discharge summary Author La Nena Collazo [facility] May 05, 2022 5:48pm Note Date/Time May 05, 2022 1:22pm [facility] Medical Records Department [address] [place] [address] Emergency Department Summary 05/05/22 MR#: [id number] Acct: [id number] Name: KESHIA ROJAS Rep #:[id number] : 1950 72 From: La Nena CASTANEDA PCP: Dr. Paulo Scott MD Status:RE G ER Location: ED HPI <LEONLE Rachel - Last Filed: 05/05/22 17:48> History of Present Illness Chief Complaint: Dizziness Narrative Narrative: 72-year-old female with PMH of HTN, hypothyroidism presents with bilateral lowerextremity pain and lightheadedness. She started her shift at [employer] around 8AM and felt fine. About 2 [...] <LEONEL Rachel - Last Filed: 05/05/22 17:48> [facility] Medical History Anemia Arthritis Atherosclerotic heart disease of tanacross coronary artery without angina pectoris Barretts esophagus [...] Verified 04/24/22 14:40 glycoprotein E, recombinant [From Triangulate (PF)] Family History Mother Cancer Celiac disease [...] obtaining)] 96 Pulse Ox Oxygen Delivery Method [facility] <LEONEL Rachel - Last Filed: 05/05/22 17:48> [facility] Narrative Medical decision making narrative: Patient complained [...] % (Auto) 65.4 Lymph % (Auto) 21.7 Weakley % (Auto) 6.9 Eos % (Auto) 4.8 [...] Clarity Clear Urine pH 6.0 Ur Specific [place] 1.010 Urine Protein Negative Urine Glucose (UA) [...] (Auto) Neut % (Auto) Lymph % (Auto) Weakley % (Auto) Eos % (Auto) Baso % (Auto) Absolute Neuts (auto) Absolute Lymphs (auto) Nucleated RBC % Sodium Potassium Chloride Carbon Dioxide Anion Gap BUN Creatinine Estim Creat Clear Calc Est GFR (MDRD) Af Amer Est GFR (MDRD) Non-Af BUN/Creatinine Ratio Glucose Calcium Total Creatine Kinase 186 Troponin I High Sens 4 Urine Color Urine Clarity Urine pH Ur Specific [place] [place] Urine Protein Urine Glucose (UA) Urine Ketones Urine Occult Blood Urine Nitrite Urine Bilirubin Urine Urobilinogen Ur Leukocyte Esterase Urine RBC Urine WBC Ur Squamous Epith Cells Urine Bacteria Urine Mucus Radiography Diagnostic Testing: Clinical Impression(s) from Imaging Studies Knee X-Ray 05/05/22 16:30 IMPRESSION: Mild degenerative changes. Electronically Signed: Martin Velasquez DO at 17:21 EST Reading Location ID and State: [facility] / [place] Tel [phone], Service support , Knee X-Ray 05/05/22 16:30 IMPRESSION: Degenerative changes. Electronically Signed: Martin Velasquez DO at 17:19 EST , ED attending interpretation of bilateral knee x-ray shows no fracture or dislocation, mild arthritis. <Dr. Ellie Mullins DO - Last Filed: 05/05/22 16:15> [facility] Lab Data Attestation: I reviewed the patient's lab results. Lab results narrative: I have personally performed a face to face assessment of the patient and have reviewed the EULALIA Note. I performed a substantive portion of the visit including all aspects of the following. My sy findings include: History is [patient seen in conjunction with physician pest controller assistant. Patient presented to the emergency department [...] % (Auto) 65.4 Lymph % (Auto) 21.7 [place] % (Auto) 6.9 Eos % (Auto) 4.8 [...] Clarity Clear Urine pH 6.0 Ur Specific [place] 1.010 Urine Protein Negative Urine Glucose (UA) [...] (Auto) Neut % (Auto) Lymph % (Auto) [place] % (Auto) Eos % (Auto) Baso % (Auto) Absolute Neuts (auto) Absolute Lymphs (auto) Nucleated RBC % Sodium Potassium Chloride Carbon Dioxide Anion Gap BUN Creatinine Estim Creat Clear Calc Est GFR (MDRD) Af Amer Est GFR (MDRD) Non-Af BUN/Creatinine Ratio Glucose Calcium Total Creatine Kinase 186 Troponin I High Sens 4 Urine Color Urine Clarity Urine pH Ur Specific [place] Urine Protein Urine Glucose (UA) Urine Ketones Urine Occult Blood Urine Nitrite Urine Bilirubin Urine Urobilinogen Ur Leukocyte Esterase Urine RBC Urine WBC Ur Squamous Epith Cells Urine Bacteria Urine Mucus Radiography Diagnostic Testing: Clinical Impression(s) from Imaging Studies Knee X-Ray 05/05/22 16:30 IMPRESSION: Mild degenerative changes. Electronically Signed: Martin Velasquez DO at 17:21 EST Reading Location ID and State: [facility] / [place] Tel [phone], Service support , Knee X-Ray 05/05/22 16:30 IMPRESSION: Degenerative changes. Electronically Signed: Martin Velasquez DO at 17:19 EST Reading Location ID and State: [facility] / [place] Tel [phone], Service support , EKG Initial EKG: Attestation: I personally reviewed and interpreted this EKG as follows: Comments: Sinus rhythm with a ventricular rate of 67 bpm with no acute ST segment changes Discharge Plan Dx/Rx/DC Orders Clinical Impression: Bilateral leg pain, Difficulty in walking, Dizziness Disposition Disposition: Acute Care Hospital [facility] What to do if you have Problems For any increased pain, shortness of breath, bleeding, nausea or vomiting, chest pain, or any unexpected problems, contact your Primary Care Provider. Call [facility] ([phone]) or report to the closest Emergency Room. Call 911 if necessary. 05/05/22 1748 <Electronically signed by La Nena CASTANEDA> Cosigner Signature (if applicable): 05/05/22 1648 <Electronically signed by Ellie Mullins DO> CC: Dr. Paulo Scott MD ~ Signed [facility] Work Phone: [phone]) 480-973602-10-2023 Instructions* Patient Instructions* Juan Rodriguez APRN.CNS - 04/26/2022 9:57 AM EST Stop taking lisinopril Start taking amlodipine 2.5 mg daily documented in [facility] encounterSt. [facility] History of Present illness Narrative* Juan [...] to emergency department. 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 Charlton) Cataracts, both eyes Coronary atherosclerosis of unspecified type of vessel, tanacross or graft minimal plaque on cath 08/06/2006 DVT (deep venous thrombosis) (HCC) 2010 Right leg OCTOBER 2009 NOT TREATED Dysmetabolic syndrome X Esophageal reflux Fibromyalgia better with Lyrica Floppy eyelid syndrome Hiatal hernia Large when seen on EGD 10/2010 at [facility] (Dr. Chavarria) Irritable bowel syndrome Obesity [...] Level: 4 - Moderate documented in this encounterSt. [facility]02-[facility]-[address] Alatorre [facility] April 24, 2022 8:33pm Note Date/Time April 24, 2022 4 :51pm [facility] Medical Records Department [address] [place] [address] Emergency Department Summary 04/24/22 MR#: [id number] Acct: [id number] Name: KESHIA ROJAS Rep #:[id number] : [...] does. He does not appreciate any swelling. 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 Call [facility] ([phone]) or report to the closest Emergency Room. Call 911 if necessary. 04/24/222032 <Electronically signed by Rajinder Alatorre DO> Cosigner Signature (if applicable): CC: Dr. Paulo Scott MD ~ Signed [facility] Work Phone: [phone]) 644-667502-08-2023 Miscellaneous Notes* Telephone Encounter - Norman Garcia [...] 9. OTHER SYMPTOMS: Denies Protocols used: Face [id number] documented in this encounterSt. [facility]12-12-2022 Miscellaneous Notes* Telephone Encounter - Norman Garcia APRN.CNP - 02/25/2022 10:57 AM EST See my chart message. * Telephone Encounter - Nataly Krueger RN - 02/25/2022 9:38 AM EST Patient calling and asking about the urine culture. Patient noticed that it was abnormal. Patient pharmacy is [facility] if provider needs to send medication. Patient continues to have burning with urination. Can send response through My Chart. Please review and advise, Nataly Krueger RN documented in this encounterSt. [facility] Hospital12-06-2022 Miscellaneous Notes* Telephone Encounter - Norman [...] you. Arleen Hamm LPN documented in this encounterSt. Charles Hospital08-19-2022 Miscellaneous Notes* Telephone Encounter - Paulo [...] notify patient. Charo Salazar documented in this encounterSt. [facility] Hospital07-21-2022 Miscellaneous Notes* Telephone Encounter - Adalgisa Alston LPN - 10/04/2021 2:27 PM EDT Providers message was sent to patient on [email or web address] as requested. * Telephone Encounter - Juan Rodirguez APRN.CNS - 10/04/2021 1:04 PM EDT she [...] My Chart. Thank you. documented in this encounterSt. [facility] Hospital06-20-2022 Miscellaneous Notes* Telephone Encounter - Jessica [...] mcg tablet Class: Normal documented in this encounterSt. 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 Charlton) Cataracts, both eyes Coronary atherosclerosis of unspecified type of vessel, tanacross or graft minimal plaque on cath 08/06/2006 DVT (deep venous thrombosis) (HCC) 2010 Right leg OCTOBER 2009 NOT TREATED Dysmetabolic syndrome X Esophageal reflux Fibromyalgia better with Lyrica Floppy eyelid syndrome Hiatal hernia Large when seen on EGD 10/2010 at [facility] (Dr. Chavarria) Irritable bowel syndrome Obesity [...] 400 Units by mouth once daily. [facility] as directed. white petrolatum 94% - mineral oil 3% 94-3 % oint Dr. Lynne [facility] acetaminophen (TYLENOL) 325 mg tablet Take 650 mg by mouth every 6 hours as needed. Tylenol arthritis COMPOUNDED PRESCRIPTION [place] Antiseptic Powder (carbolic acid; zinc oxide) as [...] vertigo. Paulo Scott MD documented in this encounterSt. [facility] Hospital10-01-2021 History of Present illness Narrative* Jodi [...] 15, 2020 12:22 PM documented in this encounterSt. [facility] Hospital06-16-2021 History of Present illness Narrative* Eleuterio [...] 30, 2020 1:41 PM documented in this encounterSt. [facility] Hospital04-27-2021 History of Present illness Narrative* Kalli [...] 11, 2020 1:13 PM documented in this encounterSt. [facility]04-11-2012 History of Past illness Narrative* Problem Noted Date Resolved Date Discharge planning 06/26/2011 09/03/2011 Overview: 06/30/2011 Pt is and lives in [place], [place] At this time, we anticipate that the patient will be discharged home. Patient is in SNF after suffering a stroke. Patient requests home care for a home visit. Plan: - Per social work: Friends in [employer] can assist. SW provided contact info for this [employer] to call when pt returns home if [...] 12/28/2016 Overview: 06/30/2011 TIA x2 2005, 2008. 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 1) Laparotomy 2) Joann almita roplasty 3) Wedge the gastric fundus 4) Robbie fundoplication 06/30/2011 Overview: 06/29/2011 - No c/o reflux post op. Slight nausea w/ some PO's (chicken broth, took others w/o complaint) CAR REPAIRER APPRENTICE meds: nexium 40mg daily plan: - pepcid IV changed to PO while in house - resume nexium at discharge. documented as of this encounter (statuses as of 08/27/2021) [facility] of Past illness Narrative* Problem Noted Date Resolved Date Discharge planning 06/26/2011 09/03/2011 Overview: 06/30/2011 Pt is and lives in [place], [place] At this time, we anticipate that the patient will be discharged home. Patient is in SNF after suffering a stroke. Patient requests home care for a home visit. Plan: - Per social work: [facility] in [facility] can assist. SW provided contact info [...] 12/28/2016 Overview: 06/30/2011 TIA x2 2005, 2008. 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 1) Laparotomy 2) Joann almita roplasty 3) Wedge the gastric fundus 4) Robbie fundoplication 06/30/2011 Overview: 06/29/2011 - No c/o reflux post op. Slight nausea w/ some PO's (chicken broth, took others w/o complaint) CAR REPAIRER APPRENTICE meds: nexium 40mg daily plan: - pepcid IV changed to PO while in house - resume nexium at discharge. documented as of this encounter (statuses as of 09/03/2021) [facility] of Past illness Narrative* Problem Noted Date Resolved Date Discharge planning 06/26/2011 09/03/2011 Overview: 06/30/2011 Pt is and lives in [place], [place] At this time, we anticipate that the patient will be discharged home. Patient is in SNF after suffering a stroke. Patient requests home care for a home visit. Plan: - Per social work: [facility] in [facility] can assist. SW provided contact info for this [employer] to call when pt returns home if [...] 12/28/2016 Overview: 06/30/2011 TIA x2 2005, 2008. 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 1) Laparotomy 2) Joann almita roplasty 3) Wedge the gastric fundus 4) Robbie fundoplication 06/30/2011 Overview: 06/29/2011 - No c/o reflux post op. Slight nausea w/ some PO's (chicken broth, took others w/o complaint) CAR REPAIRER APPRENTICE meds: nexium 40mg daily plan: - pepcid IV changed to PO while in house - resume nexium at discharge. documented as of this encounter (statuses as of 10/04/2021) [facility] illness Narrative* Problem Noted Date Resolved Date Discharge planning 06/26/2011 09/03/2011 Overview: 06/30/2011 Pt is and lives in [place], [place] At this time, we anticipate that the patient will be discharged home. Patient is in SNF after suffering a stroke. Patient requests home care for a home visit. Plan: - Per social work: [facility] in [facility] can assist. SW provided contact info [...] 12/28/2016 Overview: 06/30/2011 TIA x2 2005, 2008. 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 1) Laparotomy 2) Joann almita roplasty 3) Wedge the gastric fundus 4) Robbie fundoplication 06/30/2011 Overview: 06/29/2011 - No c/o reflux post op. Slight nausea w/ some PO's (chicken broth, took others w/o complaint) CAR REPAIRER APPRENTICE meds: nexium 40mg daily plan: - pepcid IV changed to PO while in house - resume nexium at discharge. documented as of this encounter (statuses as of 10/20/2021) [facility] Narrative* Problem Noted Date Resolved Date Discharge planning 06/26/2011 09/03/2011 Overview: 06/30/2011 Pt is and lives in [place], [place] At this time, we anticipate that the patient will be discharged home. Patient is in SNF after suffering a stroke. Patient requests home care for a home visit. Plan: - Per social work: [facility] in [facility] can assist. SW provided contact info for this [employer] to call when pt returns home if [...] 12/28/2016 Overview: 06/30/2011 TIA x2 2005, 2008. 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 1) Laparotomy 2) Joann almita roplasty 3) Wedge the gastric fundus 4) Robbie fundoplication 06/30/2011 Overview: 06/29/2011 - No c/o reflux post op. Slight nausea w/ some PO's (chicken broth, took others w/o complaint) CAR REPAIRER APPRENTICE meds: nexium 40mg daily plan: - pepcid IV changed to PO while in house - resume nexium at discharge. documented as of this encounter (statuses as of 11/02/2021) [facility] Narrative* Problem Noted Date Resolved Date Discharge planning 06/26/2011 09/03/2011 Overview: 06/30/2011 Pt is and lives in [place], [place] At this time, we anticipate that the patient will be discharged home. Patient is in SNF after suffering a stroke. Patient requests home care for a home visit. Plan: - Per social work: [facility] in [facility] can assist. SW provided contact info for this [employer] to call when pt returns home if [...] 12/28/2016 Overview: 06/30/2011 TIA x2 2005, 2008. 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 1) Laparotomy 2) Joann almita roplasty 3) Wedge the gastric fundus 4) Robbie fundoplication 06/30/2011 Overview: 06/29/2011 - No c/o reflux post op. Slight nausea w/ some PO's (chicken broth, took others w/o complaint) CAR REPAIRER APPRENTICE meds: nexium 40mg daily plan: - pepcid IV changed to PO while in house - resume nexium at discharge. documented as of this encounter (statuses as of 12/07/2021) [facility] Narrative* Problem Noted Date Resolved Date Discharge planning 06/26/2011 09/03/2011 Overview: 06/30/2011 Pt is and lives in [place], [place] At this time, we anticipate that the patient will be discharged home. Patient is in SNF after suffering a stroke. Patient requests home care for a home visit. Plan: - Per social work: [facility] in [facility] can assist. SW provided contact info [...] 12/28/2016 Overview: 06/30/2011 TIA x2 2005, 2008. 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 1) Laparotomy 2) Joann almita roplasty 3) Wedge the gastric fundus 4) Robbie fundoplication 06/30/2011 Overview: 06/29/2011 - No c/o reflux post op. Slight nausea w/ some PO's (chicken broth, took others w/o complaint) CAR REPAIRER APPRENTICE meds: nexium 40mg daily plan: - pepcid IV changed to PO while in house - resume nexium at discharge. documented as of this encounter (statuses as of 02/19/2022) [facility] Narrative* Problem Noted Date Resolved Date Discharge planning 06/26/2011 09/03/2011 Overview: 06/30/2011 Pt is and lives in [place], [place] At this time, we anticipate that the patient will be discharged home. Patient is in SNF after suffering a stroke. Patient requests home care for a home visit. Plan: - Per social work: [facility] in [facility] can assist. SW provided contact info [...] 12/28/2016 Overview: 06/30/2011 TIA x2 2005, 2008. 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 1) Laparotomy 2) Joann almita roplasty 3) Wedge the gastric fundus 4) Robbie fundoplication 06/30/2011 Overview: 06/29/2011 - No c/o reflux post op. Slight nausea w/ some PO's (chicken broth, took others w/o complaint) CAR REPAIRER APPRENTICE meds: nexium 40mg daily plan: - pepcid IV changed to PO while in house - resume nexium at discharge. documented as of this encounter (statuses as of 02/25/2022) [facility] Narrative* Problem Noted Date Resolved Date Discharge planning 06/26/2011 09/03/2011 Overview: 06/30/2011 Pt is and lives in [place], [place] At this time, we anticipate that the patient will be discharged home. Patient is in SNF after suffering a stroke. Patient requests home care for a home visit. Plan: - Per social work: [facility] in [facility] can assist. SW provided contact info [...] 12/28/2016 Overview: 06/30/2011 TIA x2 2005, 2008. 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 1) Laparotomy 2) Joann almita roplasty 3) Wedge the gastric fundus 4) Robbie fundoplication 06/30/2011 Overview: 06/29/2011 - No c/o reflux post op. Slight nausea w/ some PO's (chicken broth, took others w/o complaint) CAR REPAIRER APPRENTICE meds: nexium 40mg daily plan: - pepcid IV changed to PO while in house - resume nexium at discharge. documented as of this encounter (statuses as of 03/21/2022) [facility] Narrative* Problem Noted Date Resolved Date Discharge planning 06/26/2011 09/03/2011 Overview: 06/30/2011 Pt is and lives in [place], [place] At this time, we anticipate that the patient will be discharged home. Patient is in SNF after suffering a stroke. Patient requests home care for a home visit. Plan: - Per social work: [facility] in [facility] can assist. SW provided contact info [...] 12/28/2016 Overview: 06/30/2011 TIA x2 2005, 2008. 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 1) Laparotomy 2) Joann almita roplasty 3) Wedge the gastric fundus 4) Robbie fundoplication 06/30/2011 Overview: 06/29/2011 - No c/o reflux post op. Slight nausea w/ some PO's (chicken broth, took others w/o complaint) CAR REPAIRER APPRENTICE meds: nexium 40mg daily plan: - pepcid IV changed to PO while in house - resume nexium at discharge. documented as of this encounter (statuses as of 04/25/2022) [facility] Narrative* Problem Noted Date Resolved Date Discharge planning 06/26/2011 09/03/2011 Overview: 06/30/2011 Pt is and lives in [place], [place] At this time, we anticipate that the patient will be discharged home. Patient is in SNF after suffering a stroke. Patient requests home care for a home visit. Plan: - Per social work: [facility] in [facility] can assist. SW provided contact info [...] 12/28/2016 Overview: 06/30/2011 TIA x2 2005, 2008. 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 1) Laparotomy 2) Joann almita roplasty 3) Wedge the gastric fundus 4) Robbie fundoplication 06/30/2011 Overview: 06/29/2011 - No c/o reflux post op. Slight nausea w/ some PO's (chicken broth, took others w/o complaint) CAR REPAIRER APPRENTICE meds: nexium 40mg daily plan: - pepcid IV changed to PO while in house - resume nexium at discharge. documented as of this encounter (statuses as of 04/26/2022) [facility] Narrative* Problem Noted Date Resolved Date Discharge planning 06/26/2011 09/03/2011 Overview: 06/30/2011 Pt is and lives in [place] At this time, we anticipate that the patient will be discharged home. Patient is in SNF after suffering a stroke. Patient requests home care for a home visit. Plan: - Per social work: [facility] in [facility] can assist. SW provided contact info [...] 12/28/2016 Overview: 06/30/2011 TIA x2 2005, 2008. 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 1) Laparotomy 2) Joann almita roplasty 3) Wedge the gastric fundus 4) Robbie fundoplication 06/30/2011 Overview: 06/29/2011 - No c/o reflux post op. Slight nausea w/ some PO's (chicken broth, took others w/o complaint) CAR REPAIRER APPRENTICE meds: nexium 40mg daily plan: - pepcid IV changed to PO while in house - resume nexium at discharge. documented as of this encounter (statuses as of 05/08/2022) [facility] Narrative* Problem Noted Date Resolved Date Discharge planning 06/26/2011 09/03/2011 Overview: 06/30/2011 Pt is and lives in [place], [place] At this time, we anticipate that the patient will be discharged home. Patient is in SNF after suffering a stroke. Patient requests home care for a home visit. Plan: - Per social work: [facility] in [facility] can assist. SW provided contact info for this [employer] to call when pt returns home if [...] 12/28/2016 Overview: 06/30/2011 TIA x2 2005, 2008. 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 1) Laparotomy 2) Joann almita roplasty 3) Wedge the gastric fundus 4) Robbie fundoplication 06/30/2011 Overview: 06/29/2011 - No c/o reflux post op. Slight nausea w/ some PO's (chicken broth, took others w/o complaint) CAR REPAIRER APPRENTICE meds: nexium 40mg daily plan: - pepcid IV changed to PO while in house - resume nexium at discharge. documented as of this encounter (statuses as of 05/09/2022) [facility] Narrative* Problem Noted Date Resolved Date Discharge planning 06/26/2011 09/03/2011 Overview: 06/30/2011 Pt is and lives in [place], [place] At this time, we anticipate that the patient will be discharged home. Patient is in SNF after suffering a stroke. Patient requests home care for a home visit. Plan: - Per social work: [facility] in [facility] can assist. SW provided contact info for this [employer] to call when pt returns home if [...] 12/28/2016 Overview: 06/30/2011 TIA x2 2005, 2008. 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 1) Laparotomy 2) Joann almita roplasty 3) Wedge the gastric fundus 4) Robbie fundoplication 06/30/2011 Overview: 06/29/2011 - No c/o reflux post op. Slight nausea w/ some PO's (chicken broth, took others w/o complaint) CAR REPAIRER APPRENTICE meds: nexium 40mg daily plan: - pepcid IV changed to PO while in house - resume nexium at discharge. documented as of this encounter (statuses as of 05/22/2022) [facility] Narrative* Problem Noted Date Resolved Date Discharge planning 06/26/2011 09/03/2011 Overview: 06/30/2011 Pt is and lives in [place] At this time, we anticipate that [...] 12/28/2016 Overview: 06/30/2011 TIA x2 2005, 2008. 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 1) Laparotomy 2) Joann almita roplasty 3) Wedge the gastric fundus 4) Robbie fundoplication 06/30/2011 Overview: 06/29/2011 - No c/o reflux post op. Slight nausea w/ some PO's (chicken broth, took others w/o complaint) CAR REPAIRER APPRENTICE meds: nexium 40mg daily plan: - pepcid IV changed to PO while in house - resume nexium at discharge. documented as of this encounter (statuses as of 05/25/2022) [facility] Narrative* Problem Noted Date Resolved Date Discharge planning 06/26/2011 09/03/2011 Overview: 06/30/2011 Pt is and lives in [place], [place] At this time, we anticipate that [...] 12/28/2016 Overview: 06/30/2011 TIA x2 2005, 2008. 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 1) Laparotomy 2) Joann almita roplasty 3) Wedge the gastric fundus 4) Robbie fundoplication 06/30/2011 Overview: 06/29/2011 - No c/o reflux post op. Slight nausea w/ some PO's (chicken broth, took others w/o complaint) CAR REPAIRER APPRENTICE meds: nexium 40mg daily plan: - pepcid IV changed to PO while in house - resume nexium at discharge. documented as of this encounter (statuses as of 06/10/2022) [facility]04-[facility]2012 History of Past illness Narrative* Problem Noted Date Resolved Date Discharge planning 06/26/2011 09/03/2011 Overview: 06/30/2011 Pt is and lives in [place], [place] At this time, we anticipate that the patient will be discharged home. Patient is in SNF after suffering a stroke. Patient requests home care for a home visit. Plan: - Per social work: Friends in [place] can assist. SW provided contact info for [employer] company to call when pt returns home [...] 12/28/2016 Overview: 06/30/2011 TIA x2 2005, 2008. 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 1) Laparotomy 2) Joann almita roplasty 3) Wedge the gastric fundus 4) Robbie fundoplication 06/30/2011 Overview: 06/29/2011 - No c/o reflux post op. Slight nausea w/ some PO's (chicken broth, took others w/o complaint) CAR REPAIRER APPRENTICE meds: nexium 40mg daily plan: - pepcid IV changed to PO while in house - resume nexium at discharge. documented as of this encounter (statuses as of 06/17/2022) [facility] History of Past illness Narrative* Problem Noted Date Resolved Date Discharge planning 06/26/2011 09/03/2011 Overview: 06/30/2011 Pt is and lives in [place], [place] At this time, we anticipate that the patient will be discharged home. Patient is in SNF after suffering a stroke. Patient requests home care for a home visit. Plan: - Per social work: [facility] in [facility] can assist. SW provided contact info [...] 12/28/2016 Overview: 06/30/2011 TIA x2 2005, 2008. 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 1) Laparotomy 2) Joann almita roplasty 3) Wedge the gastric fundus 4) Robbie fundoplication 06/30/2011 Overview: 06/29/2011 - No c/o reflux post op. Slight nausea w/ some PO's (chicken broth, took others w/o complaint) CAR REPAIRER APPRENTICE meds: nexium 40mg daily plan: - pepcid IV changed to PO while in house - resume nexium at discharge. documented as of this encounter (statuses as of 07/31/2022) [facility] History of Past illness Narrative* Problem Noted Date Resolved Date Discharge planning 06/26/2011 09/03/2011 Overview: 06/30/2011 Pt is and lives in [place], [place] At this time, we anticipate that the patient will be discharged home. Patient is in SNF after suffering a stroke. Patient requests home care for a home visit. Plan: - Per social work: [facility] in [place] can assist. SW provided contact info for this [employer] to call when pt returns home if [...] 12/28/2016 Overview: 06/30/2011 TIA x2 2005, 2008. 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 1) Laparotomy 2) Joann almita roplasty 3) Wedge the gastric fundus 4) Robbie fundoplication 06/30/2011 Overview: 06/29/2011 - No c/o reflux post op. Slight nausea w/ some PO's (chicken broth, took others w/o complaint) CAR REPAIRER APPRENTICE meds: nexium 40mg daily plan: - pepcid IV changed to PO while in house - resume nexium at discharge. documented as of this encounter (statuses as of 08/20/2022) [facility] History of Past illness Narrative* Problem Noted Date Resolved Date Discharge planning 06/26/2011 09/03/2011 Overview: 06/30/2011 Pt is and lives in [place], [place] At this time, we anticipate that the patient will be discharged home. Patient is in SNF after suffering a stroke. Patient requests home care for a home visit. Plan: - Per social work: [facility] in [place] can assist. SW provided contact info for [...] 12/28/2016 Overview: 06/30/2011 TIA x2 2005, 2008. 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 1) Laparotomy 2) Joann almita roplasty 3) Wedge the gastric fundus 4) Robbie fundoplication 06/30/2011 Overview: 06/29/2011 - No c/o reflux post op. Slight nausea w/ some PO's (chicken broth, took others w/o complaint) CAR REPAIRER APPRENTICE meds: nexium 40mg daily plan: - pepcid IV changed to PO while in house - resume nexium at discharge. documented as of this encounter (statuses as of 09/11/2022) [facility] History of Past illness Narrative* Problem Noted Date Resolved Date Discharge planning 06/26/2011 09/03/2011 Overview: 06/30/2011 Pt is and lives in [place], [place] At this time, we anticipate that the patient will be discharged home. Patient is in SNF after suffering a stroke. Patient requests home care for a home visit. Plan: - Per social work: [facility] in [facility] can assist. SW provided contact info [...] 12/28/2016 Overview: 06/30/2011 TIA x2 2005, 2008. 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 1) Laparotomy 2) Joann almita roplasty 3) Wedge the gastric fundus 4) Robbie fundoplication 06/30/2011 Overview: 06/29/2011 - No c/o reflux post op. Slight nausea w/ some PO's (chicken broth, took others w/o complaint) CAR REPAIRER APPRENTICE meds: nexium 40mg daily plan: - pepcid IV changed to PO while in house - resume nexium at discharge. documented as of this encounter (statuses as of 09/18/2022) [facility] History of Past illness Narrative* Problem Noted Date Resolved Date Discharge planning 06/26/2011 09/03/2011 Overview: 06/30/2011 Pt is and lives in [place] At this time, we anticipate that the patient will be discharged home. Patient is in SNF after suffering a stroke. Patient requests home care for a home visit. Plan: - Per social work: [facility] in [facility] can assist. SW provided contact info [...] 12/28/2016 Overview: 06/30/2011 TIA x2 2005, 2008. 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 1) Laparotomy 2) Joann almita roplasty 3) Wedge the gastric fundus 4) Robbei fundoplication 06/30/2011 Overview: 06/29/2011 - No c/o reflux post op. Slight nausea w/ some PO's (chicken broth, took others w/o complaint) CAR REPAIRER APPRENTICE meds: nexium 40mg daily plan: - pepcid IV changed to PO while in house - resume nexium at discharge. documented as of this encounter (statuses as of 09/19/2022) [facility] History of Past illness Narrative* Problem Noted Date Resolved Date Discharge planning 06/26/2011 09/03/2011 Overview: 06/30/2011 Pt is and lives in [place] At this time, we anticipate that the patient will be discharged home. Patient is in SNF after suffering a stroke. Patient requests home care for a home visit. Plan: - Per social work: [facility] in [facility] can assist. SW provided contact info [...] 12/28/2016 Overview: 06/30/2011 TIA x2 2005, 2008. 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 1) Laparotomy 2) Joann almita roplasty 3) Wedge the gastric fundus 4) Robbie fundoplication 06/30/2011 Overview: 06/29/2011 - No c/o reflux post op. Slight nausea w/ some PO's (chicken broth, took others w/o complaint) CAR REPAIRER APPRENTICE meds: nexium 40mg daily plan: - pepcid IV changed to PO while in house - resume nexium at discharge. documented as of this encounter (statuses as of 09/20/2022) [facility] History of Past illness Narrative* Problem Noted Date Diagnosed Date Resolved Date Discharge planning 06/26/2011 2 Overview: 06/30/2011 Pt is and lives in [place], [place] At this time, we anticipate that the patient will be discharged home. Patient is in SNF after suffering a stroke. Patient requests home care for a home visit. Plan: - Per social work: [facility] in [facility] can assist. SW provided contact info [...] 12/28/2016 Overview: 06/30/2011 TIA x2 2005, 2008. 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 1) Laparotomy 2) Joann almita roplasty 3) Wedge the gastric fundus 4) Robbie fundoplication 06/30/2011 Overview: 06/29/2011 - No c/o reflux post op. Slight nausea w/ some PO's (chicken broth, took others w/o complaint) CAR REPAIRER APPRENTICE meds: nexium 40mg daily plan: - pepcid IV changed to PO while in house - resume nexium at discharge. documented as of this encounter (statuses as of 09/24/2022) [facility] History of Past illness Narrative* Problem Noted Date Diagnosed Date Resolved Date Discharge planning 06/26/2011 2 Overview: 06/30/2011 Pt is and lives in [place] At this time, we anticipate that the patient will be discharged home. Patient is in SNF after suffering a stroke. Patient requests home care for a home visit. Plan: - Per social work: [facility] in [facility] can assist. SW provided contact info [...] 12/28/2016 Overview: 06/30/2011 TIA x2 2005, 2008. 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 1) Laparotomy 2) Joann almita roplasty 3) Wedge the gastric fundus 4) Robbie fundoplication 06/30/2011 Overview: 06/29/2011 - No c/o reflux post op. Slight nausea w/ some PO's (chicken broth, took others w/o complaint) CAR REPAIRER APPRENTICE meds: nexium 40mg daily plan: - pepcid IV changed to PO while in house - resume nexium at discharge. documented as of this encounter (statuses as of 10/29/2022) [facility] History of Past illness Narrative* Problem Noted Date Diagnosed Date Resolved Date Discharge planning 06/26/2011 2 Overview: 06/30/2011 Pt is and lives in [place], [place] At this time, we anticipate that the patient will be discharged home. Patient is in SNF after suffering a stroke. Patient requests home care for a home visit. Plan: - Per social work: [facility] in [facility] can assist. SW provided contact info [...] 12/28/2016 Overview: 06/30/2011 TIA x2 2005, 2008. 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 1) Laparotomy 2) Joann almita roplasty 3) Wedge the gastric fundus 4) Robbie fundoplication 06/30/2011 Overview: 06/29/2011 - No c/o reflux post op. Slight nausea w/ some PO's (chicken broth, took others w/o complaint) CAR REPAIRER APPRENTICE meds: nexium 40mg daily plan: - pepcid IV changed to PO while in house - resume nexium at discharge. documented as of this encounter (statuses as of 11/11/2022) [facility] History of Past illness Narrative* Problem Noted Date Diagnosed Date Resolved Date Discharge planning 06/26/2011 2 Overview: 06/30/2011 Pt is and lives in [place], [place] At this time, we anticipate that the patient will be discharged home. Patient is in SNF after suffering a stroke. Patient requests home care for a home visit. Plan: - Per social work: [facility] in [place] can assist. SW provided contact info for this [employer] to call when pt returns home if [...] 12/28/2016 Overview: 06/30/2011 TIA x2 2005, 2008. 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 1) Laparotomy 2) Joann almita roplasty 3) Wedge the gastric fundus 4) Robbie fundoplication 06/30/2011 Overview: 06/29/2011 - No c/o reflux post op. Slight nausea w/ some PO's (chicken broth, took others w/o complaint) CAR REPAIRER APPRENTICE meds: nexium 40mg daily plan: - pepcid IV changed to PO while in house - resume nexium at discharge. documented as of this encounter (statuses as of 01/19/2023) [facility] History of Past illness Narrative* Problem Noted Date Diagnosed Date Resolved Date Discharge planning 06/26/2011 2 Overview: 06/30/2011 Pt is and lives in [place], [place] At this time, we anticipate that the patient will be discharged home. Patient is in SNF after suffering a stroke. Patient requests home care for a home visit. Plan: - Per social work: [facility] in [place] can assist. SW provided contact info for [...] 12/28/2016 Overview: 06/30/2011 TIA x2 2005, 2008. 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 1) Laparotomy 2) Joann almita roplasty 3) Wedge the gastric fundus 4) Robbie fundoplication 06/30/2011 Overview: 06/29/2011 - No c/o reflux post op. Slight nausea w/ some PO's (chicken broth, took others w/o complaint) CAR REPAIRER APPRENTICE meds: nexium 40mg daily plan: - pepcid IV changed to PO while in house - resume nexium at discharge. documented as of this encounter (statuses as of 02/12/2023) [facility] History of Past illness Narrative* Problem Noted Date Diagnosed Date Resolved Date Discharge planning 06/26/2011 2 Overview: 06/30/2011 Pt is and lives in [place], [place] At this time, we anticipate that the patient will be discharged home. Patient is in SNF after suffering a stroke. Patient requests home care for a home visit. Plan: - Per social work: Friends in [place] can assist. SW provided contact info for [employer] to call when pt returns home if [...] 12/28/2016 Overview: 06/30/2011 TIA x2 2005, 2008. 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 1) Laparotomy 2) Joann almita roplasty 3) Wedge the gastric fundus 4) Robbie fundoplication 06/30/2011 Overview: 06/29/2011 - No c/o reflux post op. Slight nausea w/ some PO's (chicken broth, took others w/o complaint) CAR REPAIRER APPRENTICE meds: nexium 40mg daily plan: - pepcid IV changed to PO while in house - resume nexium at discharge. documented as of this encounter (statuses as of 02/21/2023) [facility] History of Past illness Narrative* Problem Noted Date Diagnosed Date Resolved Date Discharge planning 06/26/2011 2 Overview: 06/30/2011 Pt is and lives in [place], [place] At this time, we anticipate that [...] 12/28/2016 Overview: 06/30/2011 TIA x2 2005, 2008. 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 1) Laparotomy 2) Joann almita roplasty 3) Wedge the gastric fundus 4) Robbie fundoplication 06/30/2011 Overview: 06/29/2011 - No c/o reflux post op. Slight nausea w/ some PO's (chicken broth, took others w/o complaint) CAR REPAIRER APPRENTICE meds: nexium 40mg daily plan: - pepcid IV changed to PO while in house - resume nexium at discharge. documented as of this encounter (statuses as of 02/24/2023) [facility] History of Past illness Narrative* Problem Noted Date Diagnosed Date Resolved Date Discharge planning 06/26/2011 2 Overview: 06/30/2011 Pt is and lives in [place], [place] At this time, we anticipate that the patient will be discharged home. Patient is in SNF after suffering a stroke. Patient requests home care for a home visit. Plan: - Per social work: [facility] in [facility] can assist. SW provided contact info for [employer] to call when pt returns home if [...] 12/28/2016 Overview: 06/30/2011 TIA x2 2005, 2008. 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 1) Laparotomy 2) Joann almita roplasty 3) Wedge the gastric fundus 4) Robbie fundoplication 06/30/2011 Overview: 06/29/2011 - No c/o reflux post op. Slight nausea w/ some PO's (chicken broth, took others w/o complaint) CAR REPAIRER APPRENTICE meds: nexium 40mg daily plan: - pepcid IV changed to PO while in house - resume nexium at discharge. documented as of this encounter (statuses as of 04/29/2023) [facility] History of Past illness Narrative* Problem Noted Date Diagnosed Date Resolved Date Discharge planning 06/26/2011 2 Overview: 06/30/2011 Pt is and lives in [place], [place] At this time, we anticipate that the patient will be discharged home. Patient is in SNF after suffering a stroke. Patient requests home care for a home visit. Plan: - Per social work: [facility] in [facility] can assist. SW provided contact info for [employer] to call when pt returns home if [...] 12/28/2016 Overview: 06/30/2011 TIA x2 2005, 2008. 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 1) Laparotomy 2) Joann almita roplasty 3) Wedge the gastric fundus 4) Robbie fundoplication 06/30/2011 Overview: 06/29/2011 - No c/o reflux post op. Slight nausea w/ some PO's (chicken broth, took others w/o complaint) CAR REPAIRER APPRENTICE meds: nexium 40mg daily plan: - pepcid IV changed to PO while in house - resume nexium at discharge. documented as of this encounter (statuses as of 07/04/2023) [facility] History of Past illness Narrative* Problem Noted Date Diagnosed Date Resolved Date Discharge planning 06/26/2011 2 Overview: 06/30/2011 Pt is and lives in [place], [place] At this time, we anticipate that the patient will be discharged home. Patient is in SNF after suffering a stroke. Patient requests home care for a home visit. Plan: - Per social work: [facility] in [facility] can assist. EDENILOSN provided contact info for [employer] to call when pt returns home if [...] 12/28/2016 Overview: 06/30/2011 TIA x2 2005, 2008. 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 1) Laparotomy 2) Joann almita roplasty 3) Wedge the gastric fundus 4) Robbie fundoplication 06/30/2011 Overview: 06/29/2011 - No c/o reflux post op. Slight nausea w/ some PO's (chicken broth, took others w/o complaint) CAR REPAIRER APPRENTICE meds: nexium 40mg daily plan: - pepcid IV changed to PO while in house - resume nexium at discharge. documented as of this encounter (statuses as of 07/04/2023) [facility] Raul Casper [facility] Note Date/Time December 29, 2024 7 :44am [facility] Medical Records Department [address] [place] [address] Consultation - GI 12/27/24 1752 MR#: [id number] Acct: [id number] Name: KESHIA ROJAS Rep #:[id number] : 1950 74 From: Raul Casper DO PCP: Dr. 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 [facility] Medical History Loss of hearing Wears glasses Wears partial dentures Post-menopausal Anxiety Thyroid disease Ambulates with cane Urinary incontinence Difficulty swallowing Gastric reflux Non-smoker History of echocardiogram History of stress test Seasonal allergies History of edema Cardiology follow-up encounter History of cataract Ganglion cyst Atherosclerotic heart disease of [place] coronary artery without angina pectoris Cholelithiasis with [...] 250 mg 250 mg PO DAILY URI [facility] 01/31/23 12/27/24 History chewable tablet (Azo [...] Neut % (Auto) 67.3, Lymph % (Auto) 21.4,[place] % (Auto) 6.4, Eos % (Auto) 3.8, [...] Sl. Cloudy, Urine pH 6.0, Ur Specific [place] 1.020, Urine Protein 15 H, Urine Glucose [...] cysts. Status post subtotal gastrectomy. Reading Location: [facility] Assessment & Plan Assessment/Plan (1) GI bleed: [...] levels closely. Charges/Coding Visit Charges Inpatient E&M: 96288 Init Hosp L3 12/29/24 0744 <Electronically signed by Raul Friend DO> Cosigner Signature (if applicable): CC: Dr. Paulo Scott MD~ Signed [facility] Work Phone: Consult note Author Ang Josue [facility] Note Date/Time December 28, 2024 5 :55pm [facility] Medical Records Department [address] [place] [address] Pre-Anesthesia Evaluation 12/28/24 1742 MR#: [id number] Acct: [id number] Name: KESHIA ROJAS Rep #:[id number] : 1950 74 From: Ang Josue MD PCP: Dr. Paulo Scott MD Status:AD M IN Y Race: C Location: [place] [address] ASA Classification* ASA Classification ASA Classification: 3 [...] Procedure(s): EGD. 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 Hx Hospitalization Yes: 05/2022 BLE NUMBNESS 01/14/24 [...] take am of surgery PONV PONV - solar resource assessor: PONV - solar resource assessor Female HX of Motion Sickness HX of N/V After Surgery Non-Smoker Duration of Surgery greater than 60 minutes Number of Risk Factors PONV Score Height & Weight Height & Weight: Anesthesia: Height & Weight Height 5 ft 4 in 12/28/24 09:22 Weight: 104.1 kg 12/28/24 09:22 Body Mass Index (BMI) 39.4 12/28/24 09:22 Respiratory Assessment Respiratory Assessment - solar resource assessor: Respiratory Tract Infection Hx - solar resource assessor Hx Respiratory Tract Infection No 12/28/24 09:24 STOP Sleep Apnea STOP Sleep Apnea - solar resource assessor: STOP Sleep Apnea - solar resource assessor Hx Hypertension Yes 12/27/24 15:34 Hx Sleep [...] Tobacco Use History Tobacco Use History - solar resource assessor: Tobacco Use History - solar resource assessor Tobacco Use Smoking Status Never smoker 12/27/24 15:34 Hx Tobacco Use No 12/27/24 15:34 Years Smoking Packs Smoked per Day Smoking Cessation Date was within the last 15 years Hx Smoking Cessation Date Hx Smoking Cessation No 12/27/24 15:34 Counseling Hematologic Medial History Hematologic Hx - solar resource assessor: 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 Hx of Blood Transfusion Yes 12/27/24 15:34 [...] confused, unrespo /Reproduction History /Reproductive History - solar resource assessor: /Reproductive Hx- solar resource assessor Hx Now No 12/28/24 09:24 Gestational Age [...] Sodium Chloride CONT INF 0 mls/hr Q10H SELMA Infusion Ceftriaxone Sodium 1 gm in 50 mls @ 100 mls/hr 12/27/24 15:21 12/28/24 09:45 Rocephin IV Infused Q24 SELAM Infusion Dextrose 250 mls @ 0 mls/hr 12/28/24 10:15 Dextrose 10%-Water IV .Q0M PRN HYPOGLYCEMIA Protocol As Directed Sodium Chloride 250 mls @ 15 mls/hr 12/28/24 13:23 IV .[id number] PRN Saline Flush Sodium Chloride 250 mls @ 15 mls/hr 12/28/24 13:23 IV .[id number] PRN Additional IVPB Infusion Insulin Glargine 10 unit 12/29/24 08:00 Insulin Glargine-Yfgn 100 Unit/Ml Pen SC DAILY [facility] Insulin Human Lispro 0 unit 12/27/24 18:00 12/28/24 16:14 Insulin Lispro 100 Unit/Ml Insuln.Pen SC Not Given Q6 [facility] Protocol Levothyroxine Sodium 88 mcg 12/28/24 06:00 12/28/24 04:57 Levothyroxine 88 Mcg Tablet PO Not Given DAILY@0600 [facility] Morphine Sulfate 2 - 4 mg 12/27/24 15:21 12/27/24 20:46 Morphine 2 Mg/Ml Syringe IV 2 mg Q3H PRN PRN Administration Pain Score 6-10 Multivitamins 1 tablet 12/28/24 08:00 12/28/24 09:08 Multivitamins,Therapeutic Tablet [facility] Ondans[facility]ron [facility] 4 mg 12/27/24 [...] cataract Ganglion cyst Atherosclerotic heart disease of tan[place] coronary artery without angina pectoris Cholelithiasis with [...] 250 mg 250 mg PO DAILY URI [facility] 01/31/23 12/27/24 History chewable tablet (Azo Cranberry) [...] MD Cosigner Signature: Date CC: ~ Signed [facility] Work Phone: Consult note Author Ang [facility] Note Date/Time December 28, 2024 7 :20pm [facility] Medical Records Department [address] [id number] Anesthesia Postop Eval I 12/28/241917 MR#: [id number] Acct: [id number] Name: KESHIA ROJAS Rep #:[id number] : 1950 74 From: Ang Josue MD PCP: Dr. Paulo Scott MD Status:AD M IN Y Race: C Location: [place] [address] Anesthesia: Postop Eval I Current Vital Signs [...] MD Cosigner Signature: Date CC: ~ Signed [facility] Work Phone: consusi note Author Ang Josue [facility] Note Date/Time January 03, 2025 5 :19pm [facility] Medical Records Department [address] [place] [address] [place] [address] Anesthesia Postop Eval II 12/28/242220 MR#: [id number] Acct: [id number] Name: KESHIA ROJAS Rep #:[id number] : 1950 74 From: Ang Josue MD PCP: Dr. Paulo Scott MD Status:AD M IN Y Race: C Location: [place] [address] Anesthesia Postop Eval I Sum Postop [...] Ang Ash Signature: Date CC: ~ Signed [facility] Work Phone: Consult note Author Arnie Rogel [facility] Note Date/Time January 03, 2025 5 :19pm [facility] Medical Records Department [address] [place] [address] Counseling Note - Pharmacy 01/03/25 1219 MR#: [id number] Acct: [id number] Name: KESHIA ROJAS Rep #:[id number] : 1950 74 From: Arnie Rogel PCP: Dr. Paulo Scott MD Status:AD M IN Location: [place] [address] [place] [facility] Pharmacy Service has performed discharge [...] Signature (if applicable): Date CC: ~ Signed [facility] Work Phone: Discharge summary Author Clifton Wells [facility] Note Date/Time January 03, 2025 1 2:54pm [facility] [facility] Medical [facility] [address] [place] [address] Transfer to [facility] MR#: [id number] Acct: [id number] Name: KESHIA ROJAS Rep #:[id number] : 1950 74 From: Clifton Tony PCP: Dr. Paulo Scott MD Status:AD M IN Certification of patient admission REQUIRED AT TIME OF ADMISSION. I CERTIFY THAT POST-HOSPITAL ECF SERVICES ARE REQUIRED TO BE GIVEN ON AN IN-PATIENT BASIS BECAUSE OF THE ABOVE NAMED PATIENT'S NEED FOR FPC CARE ON A CONTINUING BASIS FOR THE [...] ? Requested for PT OT eval and renal social worker to assist with discharge planning 18. 01/01: [...] (Auto) 67.0, Lymph % (Auto) 16.9 L, [place] % (Auto) 8.0, Eos % (Auto) 7.1 [...] % (Auto) 58.6, Lymph % (Auto) 22.3, Weak[place]% (Auto) 10.1 H, Eos % (Auto) 7.6 [...] in before D/C Order can be placed): Assisted Facility 01/03/25 1254 <Electronically signed by Clifton Wells MD> Cosigner Signature (if applicable): CC: BINDERY MACHINE OPERATOR-C Sandie Rodriguez; BINDERY MACHINE OPERATOR-C Jacquelin Odell; Dr. Keshav Elizondo MD; Dr. Shelia Campos DO; Dr. Paulo Scott MD; Dr. Clifton Wells MD; LEONEL Esposito; Raul Casper DO ~ [facility] Work Phone: Discharge summary Author Clifton Wells [facility] Note Date/Time January 03, 2025 2 :26pm [facility] Medical Records Department [address] [place] [address] Discharge Summary 01/03/25 1158 MR#: [id number] Acct: [id number] Name: KESHIA ROJAS Rep #:[id number] : 1950 74 From: Clifton Tony PCP: Dr. Paulo Scott MD Status:AD M IN Location: [place] [id number] Providers Date of Admission: 12/27/24 Date of Discharge: 01/03/25 Primary Care Physician: Dr. Paulo Scott MD Consultations 12/27/24 15:21 Consult: Gastroenterology Routine Consulting Provider: [facility] Reason for Consult: GI bleed EMERGENT [...] ? Requested for PT OT eval and renal social worker to assist with discharge planning 18. 01/01: [...] (Auto) 67.0, Lymph % (Auto) 16.9 L, Weakley % (Auto) 8.0, Eos % (Auto) 7.1 [...] % (Auto) 58.6, Lymph % (Auto) 22.3, [place]% (Auto) 10.1 H, Eos % (Auto) 7.6 [...] (Auto) 67.0, Lymph % (Auto) 16.9 L, Weak[place] % (Auto) 8.0, Eos % (Auto) 7.1 [...] in before D/C Order can be placed): Assisted Facility Charges/Coding Visit Charges Inpatient E&M: 06290 Disch Hosp >30min 01/03/25 1426 <Electronically signed by Clifton Wells MD> Cosigner Signature (if applicable): CC: Dr. Paulo Scott MD; Dr. Clifton Wells MD~ Signed [facility] Work Phone: Evaluation note* Diagnosis Family history of colon cancer Family history of malignant neoplasm of gastrointestinal tract Family history of gene mutation Personal history of colonic polyps documented in this encounter [facility] note* Diagnosis Encounter for screening mammogram for breast cancer documented in this encounter [facility] note* Diagnosis Acquired hypothyroidism Unspecified hypothyroidism documented in this encounter [facility] note* Diagnosis Onset Date Resolution Status Asthma chronic Chronic cough chronic [facility] Work Phone: Evaluation note* Diagnosis Acquired hypothyroidism- Primary Unspecified hypothyroidism IFG (impaired fasting glucose) Impaired fasting glucose Vitamin D deficiency Unspecified vitamin D deficiency Essential hypertension Unspecified essential hypertension Vertigo Dizziness and giddiness OAB (overactive bladder) Hypertonicity of bladder Dysphagia, unspecified type Anxiety Anxiety state, unspecified [facility]* Diagnosis Chronic bilateral low back pain with bilateral sciatica Acquired hypothyroidism Unspecified hypothyroidism [facility]* Diagnosis Vertigo Dizziness and giddiness Anxiety Anxiety state, unspecified documented [facility]* Diagnosis UTI symptoms- Primary Other symptoms involving urinary system documented [facility] encounter [facility]* Diagnosis Vertigo Dizziness and giddiness Anxiety Anxiety state, unspecified documented in this encounter [facility] note* Diagnosis Onset Date Resolution Status Asthma chronic [facility] Work Phone: Evaluation note* Diagnosis Submandibular lymphadenopathy- Primary Enlargement of lymph nodes Primary hypertension Unspecified essential hypertension Throat pain documented in this encounter [facility] note* Diagnosis Onset Date Resolution Status Asthma chronic Bilateral leg pain acute Difficulty in walking acute Dizziness acute [facility] Work Phone: Evaluation note* Diagnosis Vertigo Dizziness and giddiness Anxiety Anxiety state, unspecified documented in this encounter [facility] note* Diagnosis Pain in both lower extremities- Primary Bilateral leg edema Edema Imbalance Abnormality of gait Cold sore Herpes simplex without mention of complication [facility]* Diagnosis Vertigo Dizziness and giddiness Anxiety Anxiety state, unspecified documented in this encounter [facility] note* Diagnosis Rash- Primary Rash and other nonspecific skin eruption Intertrigo Other specified erythematous condition documented [facility]* Diagnosis Vertigo Dizziness and giddiness Anxiety Anxiety state, unspecified documented [facility]* Diagnosis Onset Date Resolution Status Atherosclerotic heart diseas e of tan[place] coronary artery without angina pectoris chronic Essential hypertension chron ic Barretts esophagus acute Abdominal pain chronic Chronic cough chronic [facility] Work Phone: Evaluation note* Diagnosis Vertigo Dizziness and giddiness Anxiety Anxiety state, unspecified documented [facility]* Diagnosis Encounter for screening mammogram for breast cancer documented [facility] encounter [facility]* Diagnosis Chronic bilateral low back pain with bilateral sciatica [facility] Diagnosis Acquired hypothyroidism- Primary Unspecified hypothyroidism Essential hypertension Unspecified essential hypertension Chronic bilateral low back pain with bilateral sciatica Elevated glucose Other abnormal glucose Mixed hyperlipidemia Encounter for immunization Need for other specified prophylactic vaccination against single bacterial disease Vertigo Dizziness and giddiness Anxiety Anxiety state, unspecified [facility] Diagnosis Acquired hypothyroidism- Primary Unspecified hypothyroidism Mixed hyperlipidemia Essential hypertension Unspecified essential hypertension Anemia, unspecified type IFG (impaired fasting glucose) Impaired fasting glucose Medication monitoring encounter Encounter for therapeutic drug monitoring 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 note* Diagnosis Onset Date Resolution Status Abdominal pain chronic Barretts esophagus chronic Asthma chronic [facility] Work Phone: Evaluation note* Diagnosis Strain of lumbar region, subsequent encounter- Primary Chronic bilateral low back pain with bilateral sciatica [facility] Diagnosis Acute pain of both knees- Primary Acute pain of both knees [facility] Diagnosis Acquired hypothyroidism Unspecified hypothyroidism [facility] Diagnosis Vertigo Dizziness and giddiness Anxiety Anxiety state, unspecified [facility] Diagnosis External hemorrhoid- Primary External hemorrhoids without mention of complication [facility] Diagnosis DDD (degenerative disc disease), lumbar- [...] use of medication [facility]* Diagnosis Encounter for screening mammogram for breast cancer [facility]* Diagnosis Acquired hypothyroidism Unspecified hypothyroidism Chronic bilateral low back pain with bilateral sciatica documented [facility]* Diagnosis Acute pain of both knees documented [facility]* Diagnosis Acute pain of right shoulder History of recent fall documented [facility]* Diagnosis Trigger middle finger of right hand Trigger finger (acquired) Ganglion cyst Ganglion, unspecified Mass of wrist, right Mass of finger, right documented in [facility]* Diagnosis Back pain of thoracolumbar region Lumbago Contusion of middle back wall of thorax, sequela Lumbar contusion, sequela [facility]* Diagnosis Vertigo Dizziness and giddiness Anxiety Anxiety state, unspecified documented [facility]* Diagnosis Acute cough- Primary Acquired hypothyroidism Unspecified hypothyroidism Spinal stenosis of lumbar region, unspecified whether neurogenic claudication present Primary hypertension Unspecified essential hypertension Mixed hyperlipidemia Vitamin D deficiency Unspecified vitamin D deficiency Diet-controlled diabetes mellitus (HCC) Screening for depression documented [facility]* Diagnosis Chronic bilateral low back pain with bilateral sciatica documented [facility]* Diagnosis Chronic bilateral low back pain with bilateral sciatica [facility] Diagnosis Vertigo Dizziness and giddiness Anxiety Anxiety state, unspecified [facility]* Diagnosis Encounter for screening mammogram for breast cancer [facility] Diagnosis Acquired hypothyroidism- Primary Unspecified hypothyroidism [...] hypothyroidism Unspecified hypothyroidism [facility] Diet-controlled diabetes mellitus (HCC)- Primary Essential hypertension Unspecified essential hypertension Mixed hyperlipidemia Acquired hypothyroidism Unspecified hypothyroidism Obesity, Class II, BMI 35-39.9 Obesity, unspecified Encounter for therapeutic drug monitoring Vitamin D deficiency Unspecified vitamin D deficiency Anxiety Anxiety state, unspecified Bursitis of other bursa of left hip [facility] Diagnosis Diet-controlled diabetes mellitus (HCC) [facility] Vertigo Dizziness and giddiness Anxiety Anxiety state, unspecified [facility] Author Raul Casper [facility] April 23, 2023 8:31am Note Date/Time April 23, 2023 8 :31am [facility] Medical Records Department [address] [place] [address] History & Physical Exam 04/23/23 0830 MR#: [id number] Acct: [id number] Name: KESHIA ROJAS Rep #:[id number] : 1950 73 From: Raul Casper DO PCP: Dr. Paulo Scott MD Status:[facility] Location: [place] [address] History and Physical Date of Admission: 04/23/23 73 F who presents to the office today for [facility] ED 08.05.22. PMH anemia, Sarmiento?s esophagus, IBS, [...] Appearance: average body habitus and well nourished [facility] Head: normal to inspection Ears: hearing [...] Affect: normal affect Quality Reporting Tobacco Screening ([facility] 138) Smoking Status: Never smoker Assessment and [...] clinical changes since date of exam. 04/23/23 0870 <Electronically signed by Raul Casper DO> Cosigner Signature (if applicable): CC: Dr. Paulo Scott MD; Raul Casper DO~ Signed [facility] Work Phone: History and physical note Author Shelia Campos [facility] Note Date/Time December 27, 2024 3 :51pm [facility] Medical Records Department [address] [place] [address] H&P Exam - Hospitalist 12/27/24 1440 MR#: [id number] Acct: [id number] Name: KESHIA ORJAS Rep #:[id number] : 1950 74 From: Shelia Campos DO PCP: Dr. Paulo Scott MD Status:AD M IN Location: [facility] [id number] HPI - General General Date of Admission: 12/27/24 Date of Service: 12/27/24 Chief Complaint: Melena/abdominal pain HPI Narrative KESHIA ROJAS, is a 74 F who presented to the emergency department [facility] on 12/28/2019 for chief complaint of [...] an expected hospitalization greater than 2 midnights. 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 Cloudy, Urine pH 6.0, Ur Specific [place] 1.020, Urine Protein 15 H, Urine Glucose [...] cysts. Status post subtotal gastrectomy. Reading Location: [facility] Assessment & Plan Assessment/Plan (1) GI [...] of admission Charges/Coding Visit Charges Inpatient E&M: 72346 Init Hosp L3 12/27/24 1551 <Electronically signed by Shelia Campos DO> Cosigner Signature (if applicable): CC: Dr. Shelia Campos DO; Dr. Paulo Scott MD~ Signed [facility] Work Phone: Hospital Discharge instructions Additional Instructions Please be mindful of your constipation and note that all pain medication is constipating. Only take the pain medication [facility] Work Phone: Hospital Discharge instructionsAdditional Instructions Your [...] if your symptoms worsen or new symptoms develop.[facility] Work Phone: Hospital Discharge instructionsAdditional Instructions Date of Dis[facility]: [facility] Work Phone: Progress note Author Keshav Elizondo [facility] Note Date/Time December 28, 2024 1 0:15am [facility] Medical Records Department [address] [place] [address] Progress Note - Hospitalist 12/28/24 0819 MR#: [id number] Acct: [id number] Name: KESHIA ROJAS Rep #:[id number] : 1950 74 From: Keshav Elizondo MD PCP: Dr. Paulo Scott MD Status:AD M IN Location: [place] [address] Reason for Visit Chief Complaint: Melena/abdominal pain [...] Neut % (Auto) 67.3, Lymph % (Auto) 21.4,Weakley % (Auto) 6.4, Eos % (Auto) 3.8, [...] Sl. Cloudy, Urine pH 6.0, Ur Specific [place] 1.020, Urine Protein 15 H, Urine Glucose [...] % (Auto) 55.3, Lymph % (Auto) 28.6, Weakley% (Auto) 7.9, Eos % (Auto) 7.2 H, [...] cysts. Status post subtotal gastrectomy. Reading Location: [facility] Physical Exam Narrative GENERAL: cooperative HEENT: Atraumatic; [...] 52. Minutes Charges/Coding Visit Charges Inpatient E&M: 47603 [facility] Hosp 12/28/24 1015 <Electronically signed by Keshav Elizondo MD> Cosigner Signature (if applicable): CC: ~ Signed [facility] Work Phone: Progress note Author Keshav Elizondo [facility] Note Date/Time December 29, 2024 9 :20am [facility] Medical Records Department [address] [place] [address] Progress Note - Hospitalist 12/29/24 0853 MR#: [id number] Acct: [id number] Name: KESHIA ROJAS Rep #:[id number] : 1950 74 From: Keshav Elizondo MD PCP: Dr. Paulo Scott MD Status:AD M IN Location: [place] [address] Reason for Visit Chief Complaint: Melena/abdominal pain [...] Neut % (Auto) 57.7, Lymph % (Auto) 24.2,Weakley % (Auto) 11.1 H, Eos % (Auto) [...] Subsegmental atelectasis left lower lobe. Reading Location: [facility] Physical Exam Narrative GENERAL: cooperative HEENT: Atraumatic; [...] 52. Minutes Charges/Coding Visit Charges Inpatient E&M: 49360 Subs Hosp L3 12/29/24 0920 <Electronically signed by Keshav Elizondo MD> Cosigner Signature (if applicable): CC: ~ Signed [facility] Work Phone: Progress note Author Keshav Elizondo [facility] Note Date/Time December 30, 2024 1 1:20am [facility] Medical Records Department [address] [place] [address] Progress Note - Hospitalist 12/30/24 0829 MR#: [id number] Acct: [id number] Name: KESHIA ROJAS Rep #:[id number] : 1950 74 From: Keshav Elizondo MD PCP: Dr. Paulo Scott MD Status:AD M IN Location: [place] [address] Reason for Visit Chief Complaint: Melena/abdominal pain [...] % (Auto) 53.2, Lymph % (Auto) 27.7, Weak[place]% (Auto) 9.6, Eos % (Auto) 8.6 H, [...] 50. Minutes Charges/Coding Visit Charges Inpatient E&M: 26217 Subs Hosp L3 12/30/24 1120 <Electronically signed by Keshav Elizondo MD> Cosigner Signature (if applicable): CC: ~ Signed [facility] Work Phone: Progress note Author Raul Casper [facility] Note Date/Time December 30, 2024 6 :52pm [facility] Medical Records Department [address] [place] [address] Progress Note 12/30/24 1849 MR#: [id number] Acct: [id number] Name: KESHIA ROJAS Rep #:[id number] : 1950 74 From: Raul Casper DO PCP: Dr. Paulo Scott MD Status:AD M IN Location: [place] [address] Progress Note A 74-year-old woman presents for [...] fail to resolve. Visit Charges Inpatient E&M: 43796 Subs Hosp L3 12/30/241851 <Electronically signed by Raul Casper DO> Raul Casper DO Cosigner Signature (if applicable): CC: ~ Signed [facility] Work Phone: Progress note Author Kehsav Elizondo [facility] Note Date/Time December 31, 2024 9 :39am [facility] Medical Records Department [address] [place] [address] Progress Note - Hospitalist 12/31/24 0929 MR#: [id number] Acct: [id number] Name: KESHIA ROJAS Rep #:[id number] : 1950 74 From: Keshav Elizondo MD PCP: Dr. Paulo Scott MD Status:AD M IN Location: [place] [address] Reason for Visit Chief Complaint: Melena/abdominal pain [...] % (Auto) 64.9, Lymph % (Auto) 20.1, Weakley% (Auto) 9.7, Eos % (Auto) 4.2, Baso [...] ? Requested for PT OT eval and renal social worker to assist with discharge planning Time spent in the patient's overall evaluation,decision-making process, review of diagnostic data, adjustment of management, discussion with other providers, nursing nursing and ancillary staff involved in patient's care documentation, 52. Minutes Charges/Coding Visit Charges Inpatient E&M: 20393 Subs Hosp L3 12/31/24 0939 <Electronically signed by Keshav Elizondo MD> Cosigner Signature (if applicable): CC: ~ Signed [facility] Work Phone: Progress note Author Clifton Wells [facility] Note Date/Time January 01, 2025 7 :07pm [facility] Medical Records Department [address] [place] [address] Progress Note - Hospitalist 01/01/25 1223 MR#: [id number] Acct: [id number] Name: KESHIA ROJAS Rep #:[id number] : 1950 74 From: Clifton Tony PCP: Dr. Paulo Scott MD Status:AD M IN Location: [place] [id number] Reason for Visit Chief Complaint: Melena/abdominal [...] ? Requested for PT OT eval and renal social worker to assist with discharge planning 18. Patient [...] 208 H Charges/Coding Visit Charges Inpatient E&M: 16058 Subs Hosp L2 01/01/25 190 <Electronically signed by Clifton Wells MD> Cosigner Signature (if applicable): CC: ~ Signed [facility] Work Phone: Progress note Author Clifton [facility] Note Date/Time January 02, 2025 1 1:19am [facility] Medical Records Department [address] [place] [address] Progress Note - Hospitalist 01/02/25 1113 MR#: [id number] Acct: [id number] Name: KESHIA ROJAS Rep #:[id number] : 1950 74 From: Clifton Tony PCP: Dr. Paulo Scott MD Status:AD M IN Location: [place] [address] Reason for Visit Chief Complaint: Melena/abdominal pain [...] % (Auto) 58.6, Lymph % (Auto) 22.3, [place]% (Auto) 10.1 H, Eos % (Auto) 7.6 [...] the left hemidiaphragm. Hiatal hernia. Reading Location: [address] Physical Exam Narrative Seen and examined. [...] ? Requested for PT OT eval and renal social worker to assist with discharge planning 18. 01/01: [...] % (Auto) 58.6, Lymph % (Auto) 22.3, [place]% (Auto) 10.1 H, Eos % (Auto) 7.6 [...] 183 H Charges/Coding Visit Charges Inpatient E&M: 07602 Subs Hosp L2 01/02/25 1119 <Electronically signed by Clifton Wells MD> Cosigner Signature (if applicable): CC: ~ Signed [facility] Work Phone: Reason for referral (narrative)* Diagnostic Procedure Only (Routine) - Pending Review Specialty Diagnoses / Procedures Referred By Contac t Referred To Contact [facility] Diagnoses Encounter for screening mammogram for breast cancer Procedures FORTUNATO SCREENING SCREENING MAMMOGRAPHY BI 2-VIEW BREAST INC Paulo Antoine MD [address] [place] [address] [facility] [address] [place] [address] Referral ID Status Reason Start Date Expiration Date Visits Requested Visits Authorized [id number] Pending Review Auto-Generat ed Referral 08/22/2021 09/21/2022 1 1 [facility] for referral (narrative)* Diagnostic Procedure Only (Routine) - Closed Specialty Diagnoses / Procedures Referred By Silvana escobar Referred To Contact [facility] Diagnoses Encounter for screening mammogram for breast cancer Procedures FORTUNATO SCREENING SCREENING MAMMOGRAPHY BI 2-VIEW BREAST INC Paulo Antoine MD [address] [place] [address] [facility] [address] [place] [address] Referral ID Status Reason Start Date Expiration Date V isits Requested Visits Authorized [id number] Closed Auto-Generate d Referral 08/22/2021 09/21/2022 1 1 [facility] for referral (narrative)* Diagnostic Procedure Only (Urgent) - Closed Specialty Diagnoses / Procedures Referred By Silvana t Referred To Contact XR IMAGING Diagnoses Acute pain of both knees Procedures XR KNEE GENERAL 4V AP BOTH/PA BOTH/LAT/MERC BILATERAL RADIOLOGIC EXAM KNEE COMPLETE 4/MORE VIEWS [facility] [address] [place] [address] [place] [id number] Referral ID Status Reason Start Date Expiration Date V isits Requested Visits Authorized [id number] Closed Auto-Generate d Referral 07/22/2023 08/20/2024 1 1 [facility] for referral (narrative)* Diagnostic Procedure Only (Routine) - New Request Specialty Diagnoses / Procedures Referred By Silvana escobar Referred To Contact [facility] Diagnoses Encounter for screening mammogram for breast cancer Procedures FORTUNATO SCREENING W MITCHELL SCREENING DIGITAL BREAST TOMOSYNTHESIS BI SCREENING MAMMOGRAPHY BI 2-VIEW BREAST INC Paulo Antoine MD [address] [place] [address] [facility] [address] [place] [address] Referral ID Status Reason Start Date Expiration Date Visits Requested Visits Authorized [id number] New Request Auto-Generat ed Referral 10/15/2023 11/13/2024 1 1 [facility] for referral (narrative)* Diagnostic Procedure Only (Urgent) - Closed Specialty Diagnoses / Procedures Referred By Auroraac t Referred To Contact XR IMAGING Diagnoses Acute pain of both knees Procedures XR KNEE GENERAL 4V AP BOTH/PA BOTH/LAT/MERC BILATERAL RADIOLOGIC EXAM KNEE COMPLETE 4/MORE VIEWS [facility] [address] [place] [address] [place] [address] Referral ID Status Reason Start Date Expiration Date V isits Requested Visits Authorized [id number] Closed Auto-Generate d Referral 07/22/2023 08/20/2024 1 1 [facility] for referral (narrative)* Diagnostic Procedure Only (Routine) - Closed Specialty Diagnoses / Procedures Referred By Silvana escobar Referred To Contact XR IMAGING Diagnoses Acute pain of right shoulder History of recent fall Procedures XR SHOULDER GENERAL 3V OR MORE AP/TRUE AP/OTHER RT X-RAY SHOULDER COMPLET MIN 2 VIEWS Paulo Scott MD [address] [place] [id number] [place] [address] Referral ID Status Reason Start Date Expiration Date V isits Requested Visits Authorized [id number] Closed Auto-Generate d Referral 12/15/2020 01/14/2022 1 1 [facility] for referral (narrative)No reason for referral information [facility] for [facility] Narrative* Diagnostic Procedure Only (Routine) - Closed Specialty Diagnoses / Procedures Referred By Silvana escoabr Referred To Contact BR IMAGING Diagnoses Encounter for screening mammogram for breast cancer Procedures FORTUNATO SCREENING SCREENING MAMMOGRAPHY BI 2-VIEW BREAST INC CAD Paulo Scott MD [address] [place] [address] [facility] [address] [place] [address] Referral ID Status Reason Start Date Expiration Date V isits Requested Visits Authorized [id number] Closed Auto-Generate d Referral 08/22/2021 09/21/2022 1 1 [facility] for visit Narrative* Diagnostic Procedure Only (Urgent) - Closed Specialty Diagnoses / Procedures Referred By Contac t Referred To Contact XR IMAGING Diagnoses Acute pain of both knees Procedures XR KNEE GENERAL 4V AP BOTH/PA BOTH/LAT/MERC BILATERAL RADIOLOGIC EXAM KNEE COMPLETE 4/MORE VIEWS [facility] [address] [place] [address] [place] [address] Referral ID Status Reason Start Date Expiration Date V isits Requested Visits Authorized [id number] Closed Auto-Generate d Referral 07/22/2023 08/20/2024 1 1 [facility] for visit Narrative* Diagnostic Procedure Only (Routine) - Closed Specialty Diagnoses / Procedures Referred By Contac t Referred To Contact XR IMAGING Diagnoses Acute pain of right shoulder History of recent fall Procedures XR SHOULDER GENERAL 3V OR MORE AP/TRUE AP/OTHER RT X-RAY SHOULDER COMPLET MIN 2 VIEWS Paulo Scott MD [address] [place] [address] [place] [address] Referral ID Status Reason Start Date Expiration Date V isits Requested Visits Authorized [id number] Closed Auto-Generate d Referral 12/15/2020 01/14/2022 1 1 [facility] for visit Narrative* Diagnostic Procedure Only (Routine) - Closed Specialty Diagnoses / Procedures Referred By Contac t Referred To Contact BR IMAGING Diagnoses Encounter for screening mammogram for breast cancer Procedures FORTUNATO SCREENING W MITCHELL SCREENING DIGITAL BREAST TOMOSYNTHESIS BI SCREENING MAMMOGRAPHY BI 2-VIEW BREAST INC CAD Paulo Scott MD [address] [place] [address] [facility] [address] [place] [address] Referral ID Status Reason Start Date Expiration Date V isits Requested Visits Authorized [id number] Closed Auto-Generate d Referral 10/15/2023 11/13/[address] [facility] Reason for Referral Status Reason Specialty Diagnoses / Procedures Referred By Contact Referred To Contact [facility]ty [facility] Required Lab Diagnoses Family history of colon cancer Family history of gene mutation Personal history of colonic polyps Procedures Genetic Sendout: Common Hereditary Cancers Panel Quoc Diaz MD [address] [place] [address], [address] [place] [address] Specialty Diagnoses / Procedures Referred By Contac t Referred To Contact Diagnoses Ryan Giles MD [address] [place] [address] Referral ID Status Reason Start Date Expiration Date V isits Requested Visits Authorized [id number] Authorized 03/17/2022 03/16/2023 1 1 Specialty Diagnoses / Procedures Referred By Contac t Referred To Contact Diagnoses Strain of lumbar region, subsequent encounter Chronic bilateral low back pain with bilateral sciatica Norman Garcia APRN.CNP [address] [place] [address] Referral ID Status Reason Start Date Expiration Date Visits Re quested Visits Authorized [id number] Closed 1 1 Advance Directives No Advanced Directives Records FoundDocuments on File Type Date Recorded Patient Scrap Shear Operator Expl anation Power of Sewer Bricklayer Documents on File Type Date Recorded Patient Scrap Shear Operator Expl anation Advance Directive(s) 10/26/2020 12:30 PM Advance Directive(s) 09/29/2020 11:26 AM Advance Directive(s) 06/24/2011 6:54 PM Documents on File Type Date Recorded Patient Scrap Shear Operator Expl anation Advance Directive(s) 10/26/2020 12:30 PM Advance Directive(s) 09/29/2020 11:26 AM Advance Directive(s) 06/24/2011 6:54 PM Advance Directive Response Recorded Date/ Time Advance Directives No March 21, 2016 4:58pm Living Will No September 18, 2021 1 2:12pm Power of Sewer Bricklayer No September 18, 2021 12:12pm Documents on File Type Date Recorded Patient Scrap Shear Operator Expl anation Advance Directive(s) 06/24/2011 6:54 PM Advance Directive Response Recorded Date/ Time Advance Directives No March 21, 2016 3:58pm Living Will No April 24 5:17pm Power of Sewer Bricklayer No April 24, 2022 5:17pm Advance Directive Response Recorded Date/ Time Name of Medical Power of Sewer Bricklayer unsure May 05, 2022 1:24pm Advance Directives No March 21, 2016 3:58pm Living Will Yes May 05 023 1:24pm Power of Sewer Bricklayer Yes May 05, 2022 1:24pm Advance Directive Response Recorded Date/ Time Name of Medical Power of Sewer Bricklayer joshua Royal May 05, 2022 7:36pm Advance Directives No March 21, 2016 3:58pm Living Will Yes May 05, 023 7:36pm Power of Sewer Bricklayer Yes May 05, 2022 7:36pm Documents on File Type Date Recorded Patient Scrap Shear Operator Expl anation Advance Directive(s) 06/24/2011 6:54 PM Advance Directive Response Recorded Date/ Time Name of Medical Power of Sewer Bricklayer karo sanchez August 05, 2022 2:58pm Advance Directives No March 21, 2016 4:58pm Living Will Yes August 05, 2022 2 :58pm Power of Sewer Bricklayer Yes August 05, 2022 2:58pm Advance Directive Response Recorded Date/ Time Name of Medical Power of Sewer Bricklayer LUIS SANCHEZ April 21, 2023 9:33am Advance Directives No March 21, 2016 3:58pm Living Will Yes April 21 9:33am Power of Sewer Bricklayer Yes April 21, 2023 9:33am Advance Directive Response Recorded Date/ Time Name of Medical Power of Sewer Bricklayer LUIS SANCHEZ April 21, 2023 10:33am Advance Directives No March 21, 2016 4:58pm Living Will No June 19, 2023 12:34pm Power of Sewer Bricklayer No June 18 12:34pm Advance Directive Response Recorded Date/ Time Living Will No June 19, 2023 12:34pm Do you have a Healthcare Power of Sewer Bricklayer? No June 19, 2023 12:34pm Advance Directives No March 21, 2016 4:58pm Advance Directive Response Recorded Date/ Time Do you have a Healthcare Power of Sewer Bricklayer? Yes August 22, 2024 3:26pm Advance Directives No March 21, 2016 4:58pm Advance Directive Response Recorded Date/ Time Do you have a Healthcare Power of Sewer Bricklayer? No December 05, 2024 12:57pm Do you have a Healthcare Power of Sewer Bricklayer? Yes August 22, 2024 3:26pm Advance Directives No March 21, 2016 4:58pm Advance Directive Response Recorded Date/ Time Do you have a Healthcare Power of Sewer Bricklayer? No December 05, 2024 12:57pm Do you have a Healthcare Power of Sewer Bricklayer? No December 27, 2024 3:34pm Advance Directives No March 21, 2016 4:58pm Advance Directive Response Recorded Date/ Time Do you have a Healthcare Power of Sewer Bricklayer? No December 05, 2024 11:57am Do you have a Healthcare Power of Sewer Bricklayer? No December 27, 2024 2:34pm Do you have a Healthcare Power of Sewer Bricklayer? Yes January 13, 2025 10:33pm Advance Directives [...] for Visit Atherosclerotic hear t disease of [place] coronary artery without angina pectoris Essential hypertension Barretts esophagus Abdominal pain Chronic cough Chief Complaint 6 M FU 5 MO FU 6 M FU Reason for Visit Atherosclerotic hear t disease of [place] coronary artery without angina pectoris Essential hypertension [...] 12:5 9pm Atherosclerotic heart diseas e of [place] coronary artery without angina pectoris October 15, 2024 9:58am Essential hypertension October 15, 2024 9:58am Chief Complaint Admit Date PAIN August 22, 2024 3:17p m 1 Y FU October 15, 2024 9:5 8am dizziness December 05, 2024 12:28pm Reason for Visit Admit Date Atherosclerotic heart diseas e of [place] coronary artery without angina pectoris October 15, [...] Admit Date Atherosclerotic heart diseas e of [place] coronary artery without angina pectoris October 15, [...] Common Hereditary Cancers Panel Quoc Diaz MD [address] [place] [address], [address] [place] [address] Reason Comments Medication Problem Reason Comments Patient Question Reason Comments F/U 6 months Reason Onset Date Comments Refill Request 11/01/2021 Reason Onset Date Comments Refill Request 02/19/2022 Reason Comments Results Reason Onset Date Comments Refill Request 03/19/2022 Reason Comments Face Swelling Reason Comments Hospital F/U Reason Comments [facility], PT, plan of care FYI-No Action Needed Reason Comments [facility], OT update/verbal order Reason Onset [...] or prosecute any alcohol or drug abuse patient.[facility] the event this information is protected by the Federal Confidentiality of Alcohol and Drug Abuse Patient Records regulations: The Federal rules restrict any use of the information to criminally investigate or prosecute any alcohol or drug abuse patient.[facility]In the event this information is protected by the Federal Confidentiality of Alcohol and Drug Abuse Patient Records regulations: The Federal rules restrict any use of the information to criminally investigate or prosecute any alcohol or drug abuse patient.[facility] the event this information is protected by the Federal Confidentiality of Alcohol and Drug Abuse Patient Records regulations: The Federal rules restrict any use of the information to criminally investigate or prosecute any alcohol or drug abuse patient.[facility] the event this information is protected by the Federal Confidentiality of Alcohol and Drug Abuse Patient Records regulations: The Federal rules restrict any use of the information to criminally investigate or prosecute any alcohol or drug abuse patient.[facility] the event this information is protected by the Federal Confidentiality of Alcohol and Drug Abuse Patient Records regulations: The Federal rules restrict any use of the information to criminally investigate or prosecute any alcohol or drug abuse patient.[facility] the event this information is protected by the Federal Confidentiality of Alcohol and Drug Abuse Patient Records regulations: The Federal rules restrict any use of the information to criminally investigate or prosecute any alcohol or drug abuse patient.[facility] the event this information is protected by the Federal Confidentiality of Alcohol and Drug Abuse Patient Records regulations: The Federal rules restrict any use of the information to criminally investigate or prosecute any alcohol or drug abuse patient.[facility] the event this information is protected by the Federal Confidentiality of Alcohol and Drug Abuse Patient Records regulations: The Federal rules restrict any use of the information to criminally investigate or prosecute any alcohol or drug abuse patient.[facility] the event this information is protected by the Federal Confidentiality of Alcohol and Drug Abuse Patient Records regulations: The Federal rules restrict any use of the information to criminally investigate or prosecute any alcohol or drug abuse patient.[facility]In the event this information is protected by the Federal Confidentiality of Alcohol and Drug Abuse Patient Records regulations: The Federal rules restrict any use of the information to criminally investigate or prosecute any alcohol or drug abuse patient.[facility] the event this information is protected by the Federal Confidentiality of Alcohol and Drug Abuse Patient Records regulations: The Federal rules restrict any use of the information to criminally investigate or prosecute any alcohol or drug abuse patient.[facility]In the event this information is protected by the Federal Confidentiality of Alcohol and Drug Abuse Patient Records regulations: The Federal rules restrict any use of the information to criminally investigate or prosecute any alcohol or drug abuse patient.[facility]In the event this information is protected by the Federal Confidentiality of Alcohol and Drug Abuse Patient Records regulations: The Federal rules restrict any use of the information to criminally investigate or prosecute any alcohol or drug abuse patient.[facility]In the event this information is protected by the Federal Confidentiality of Alcohol and Drug Abuse Patient Records regulations: The Federal rules restrict any use of the information to criminally investigate or prosecute any alcohol or drug abuse patient.[facility]In the event this information is protected by the Federal Confidentiality of Alcohol and Drug Abuse Patient Records regulations: The Federal rules restrict any use of the information to criminally investigate or prosecute any alcohol or drug abuse patient.[facility]In the event this information is protected by the Federal Confidentiality of Alcohol and Drug Abuse Patient Records regulations: The Federal rules restrict any use of the information to criminally investigate or prosecute any alcohol or drug abuse patient.[facility]In the event this information is protected by the Federal Confidentiality of Alcohol and Drug Abuse Patient Records regulations: The Federal rules restrict any use of the information to criminally investigate or prosecute any alcohol or drug abuse patient.[facility]In the event this information is protected by the Federal Confidentiality of Alcohol and Drug Abuse Patient Records regulations: The Federal rules restrict any use of the information to criminally investigate or prosecute any alcohol or drug abuse patient.[facility]In the event this information is protected by the Federal Confidentiality of Alcohol and Drug Abuse Patient Records regulations: The Federal rules restrict any use of the information to criminally investigate or prosecute any alcohol or drug abuse patient.[facility]In the event this information is protected by the Federal Confidentiality of Alcohol and Drug Abuse Patient Records regulations: The Federal rules restrict any use of the information to criminally investigate or prosecute any alcohol or drug abuse patient.[facility]In the event this information is protected by the Federal Confidentiality of Alcohol and Drug Abuse Patient Records regulations: The Federal rules restrict any use of the information to criminally investigate or prosecute any alcohol or drug abuse patient.[facility]In the event this information is protected by the Federal Confidentiality of Alcohol and Drug Abuse Patient Records regulations: The Federal rules restrict any use of the information to criminally investigate or prosecute any alcohol or drug abuse patient.[facility]In the event this information is protected by the Federal Confidentiality of Alcohol and Drug Abuse Patient Records regulations: The Federal rules restrict any use of the information to criminally investigate or prosecute any alcohol or drug abuse patient.[facility]In the event this information is protected by the Federal Confidentiality of Alcohol and Drug Abuse Patient Records regulations: The Federal rules restrict any use of the information to criminally investigate or prosecute any alcohol or drug abuse patient.[facility]In the event this information is protected by the Federal Confidentiality of Alcohol and Drug Abuse Patient Records regulations: The Federal rules restrict any use of the information to criminally investigate or prosecute any alcohol or drug abuse patient.[facility]In the event this information is protected by the Federal Confidentiality of Alcohol and Drug Abuse Patient Records regulations: The Federal rules restrict any use of the information to criminally investigate or prosecute any alcohol or drug abuse patient.[facility]In the event this information is protected by the Federal Confidentiality of Alcohol and Drug Abuse Patient Records regulations: The Federal rules restrict any use of the information to criminally investigate or prosecute any alcohol or drug abuse patient.[facility]In the event this information is protected by the Federal Confidentiality of Alcohol and Drug Abuse Patient Records regulations: The Federal rules restrict any use of the information to criminally investigate or prosecute any alcohol or drug abuse patient.[facility]In the event this information is protected by the Federal Confidentiality of Alcohol and Drug Abuse Patient Records regulations: The Federal rules restrict any use of the information to criminally investigate or prosecute any alcohol or drug abuse patient.[facility]In the event this information is protected by the Federal Confidentiality of Alcohol and Drug Abuse Patient Records regulations: The Federal rules restrict any use of the information to criminally investigate or prosecute any alcohol or drug abuse patient.[facility]In the event this information is protected by the Federal Confidentiality of Alcohol and Drug Abuse Patient Records regulations: The Federal rules restrict any use of the information to criminally investigate or prosecute any alcohol or drug abuse patient.[facility]In the event this information is protected by the Federal Confidentiality of Alcohol and Drug Abuse Patient Records regulations: The Federal rules restrict any use of the information to criminally investigate or prosecute any alcohol or drug abuse patient.[facility]In the event this information is protected by the Federal Confidentiality of Alcohol and Drug Abuse Patient Records regulations: The Federal rules restrict any use of the information to criminally investigate or prosecute any alcohol or drug abuse patient.[facility]In the event this information is protected by the Federal Confidentiality of Alcohol and Drug Abuse Patient Records regulations: The Federal rules restrict any use of the information to criminally investigate or prosecute any alcohol or drug abuse patient.[facility] HospitalIn the event this information is protected by the Federal Confidentiality of Alcohol and Drug Abuse Patient Records regulations: The Federal rules restrict any use of the information to criminally investigate or prosecute any alcohol or drug abuse patient.[facility]In the event this information is protected by the Federal Confidentiality of Alcohol and Drug Abuse Patient Records regulations: The Federal rules restrict any use of the information to criminally investigate or prosecute any alcohol or drug abuse patient.[facility]In the event this information is protected by the Federal Confidentiality of Alcohol and Drug Abuse Patient Records regulations: The Federal rules restrict any use of the information to criminally investigate or prosecute any alcohol or drug abuse patient.[facility]In the event this information is protected by the Federal Confidentiality of Alcohol and Drug Abuse Patient Records regulations: The Federal rules restrict any use of the information to criminally investigate or prosecute any alcohol or drug abuse patient.[facility]In the event this information is protected by the Federal Confidentiality of Alcohol and Drug Abuse Patient Records regulations: The Federal rules restrict any use of the information to criminally investigate or prosecute any alcohol or drug abuse patient.[facility]In the event this information is protected by the Federal Confidentiality of Alcohol and Drug Abuse Patient Records regulations: The Federal rules restrict any use of the information to criminally investigate or prosecute any alcohol or drug abuse patient.[facility]In the event this information is protected by the Federal Confidentiality of Alcohol and Drug Abuse Patient Records regulations: The Federal rules restrict any use of the information to criminally investigate or prosecute any alcohol or drug abuse patient.[facility]In the event this information is protected by the Federal Confidentiality of Alcohol and Drug Abuse Patient Records regulations: The Federal rules restrict any use of the information to criminally investigate or prosecute any alcohol or drug abuse patient.[facility]In the event this information is protected by the Federal Confidentiality of Alcohol and Drug Abuse Patient Records regulations: The Federal rules restrict any use of the information to criminally investigate or prosecute any alcohol or drug abuse patient.[facility]In the event this information is protected by the Federal Confidentiality of Alcohol and Drug Abuse Patient Records regulations: The Federal rules restrict any use of the information to criminally investigate or prosecute any alcohol or drug abuse patient.[facility]In the event this information is protected by the Federal Confidentiality of Alcohol and Drug Abuse Patient Records regulations: The Federal rules restrict any use of the information to criminally investigate or prosecute any alcohol or drug abuse patient.[facility]In the event this information is protected by the Federal Confidentiality of Alcohol and Drug Abuse Patient Records regulations: The Federal rules restrict any use of the information to criminally investigate or prosecute any alcohol or drug abuse patient.[facility]In the event this information is protected by the Federal Confidentiality of Alcohol and Drug Abuse Patient Records regulations: The Federal rules restrict any use of the information to criminally investigate or prosecute any alcohol or drug abuse patient.[facility]In the event this information is protected by the Federal Confidentiality of Alcohol and Drug Abuse Patient Records regulations: The Federal rules restrict any use of the information to criminally investigate or prosecute any alcohol or drug abuse patient.[facility]In the event this information is protected by the Federal Confidentiality of Alcohol and Drug Abuse Patient Records regulations: The Federal rules restrict any use of the information to criminally investigate or prosecute any alcohol or drug abuse patient.[facility]In the event this information is protected by the Federal Confidentiality of Alcohol and Drug Abuse Patient Records regulations: The Federal rules restrict any use of the information to criminally investigate or prosecute any alcohol or drug abuse patient.[facility] HospitalIn the event this information is protected by the Federal Confidentiality of Alcohol and Drug Abuse Patient Records regulations: The Federal rules restrict any use of the information to criminally investigate or prosecute any alcohol or drug abuse patient.[facility] HospitalIn the event this information is protected by the Federal Confidentiality of Alcohol and Drug Abuse Patient Records regulations: The Federal rules restrict any use of the information to criminally investigate or prosecute any alcohol or drug abuse patient.[facility] HospitalIn the event this information is protected by the Federal Confidentiality of Alcohol and Drug Abuse Patient Records regulations: The Federal rules restrict any use of the information to criminally investigate or prosecute any alcohol or drug abuse patient.[facility]In the event this information is protected by the Federal Confidentiality of Alcohol and Drug Abuse Patient Records regulations: The Federal rules restrict any use of the information to criminally investigate or prosecute any alcohol or drug abuse patient.[facility] HospitalIn the event this information is protected by the Federal Confidentiality of Alcohol and Drug Abuse Patient Records regulations: The Federal rules restrict any use of the information to criminally investigate or prosecute any alcohol or drug abuse patient.[facility] HospitalIn the event this information is protected by the Federal Confidentiality of Alcohol and Drug Abuse Patient Records regulations: The Federal rules restrict any use of the information to criminally investigate or prosecute any alcohol or drug abuse patient.[facility]In the event this information is protected by the Federal Confidentiality of Alcohol and Drug Abuse Patient Records regulations: The Federal rules restrict any use of the information to criminally investigate or prosecute any alcohol or drug abuse patient.[facility] HospitalIn the event this information is protected by the Federal Confidentiality of Alcohol and Drug Abuse Patient Records regulations: The Federal rules restrict any use of the information to criminally investigate or prosecute any alcohol or drug abuse patient.[facility] HospitalIn the event this information is protected by the Federal Confidentiality of Alcohol and Drug Abuse Patient Records regulations: The Federal rules restrict any use of the information to criminally investigate or prosecute any alcohol or drug abuse patient.[facility] HospitalIn the event this information is protected by the Federal Confidentiality of Alcohol and Drug Abuse Patient Records regulations: The Federal rules restrict any use of the information to criminally investigate or prosecute any alcohol or drug abuse patient.[facility] HospitalIn the event this information is protected by the Federal Confidentiality of Alcohol and Drug Abuse Patient Records regulations: The Federal rules restrict any use of the information to criminally investigate or prosecute any alcohol or drug abuse patient.[facility] HospitalIn the event this information is protected by the Federal Confidentiality of Alcohol and Drug Abuse Patient Records regulations: The Federal rules restrict any use of the information to criminally investigate or prosecute any alcohol or drug abuse patient.[facility] Care Teams (unrecognized sec tion and content) Food Vendor Relationship Specialty Start Date End Date Paulo Scott MD [address] [place] [address] PCP - General 02/20/06 Food Vendor Relationship Specialty Start Date End Date Paulo Scott MD [address] [place] [address] PCP - General 02/20/06 Food Vendor Relationship Specialty Start Date End Date Paulo Scott MD [address] [place] [address] PCP - General 02/20/06 Food Vendor Relationship Specialty Start Date End Date Paulo Scott MD [facility] [place] [address] PCP - General 02/20/06 Food Vendor Relationship Specialty Start Date End Date Paulo Scott MD [address] [facility] [place] [address] PCP - General 02/20/06 Team Status: Active [...] Dr. Rajinder Alatorre DO Emergency Provider Active Food Vendor Relationship Specialty Start Date End Date Paulo Scott MD [address] [facility] [place] [address] PCP - General 02/20/06 Team Status: Inactive [...] Shelia Campos , DO Attending Provider Active Food Vendor Relationship Specialty Start Date End Date Paulo Scott MD [facility] [place] [address] PCP - General 02/20/06 Food Vendor Relationship Specialty Start Date End Date Paulo Scott MD [facility] [place] [address] PCP - General 02/20/06 Food Vendor Relationship Specialty Start Date End Date Paulo Scott MD [address] [place] [address] PCP - General 02/20/06 Food Vendor Relationship Specialty Start Date End Date Paulo Scott MD [address] [place] [address] PCP - General 02/20/06 Food Vendor Relationship Specialty Start Date End Date Paulo Scott MD [address] [place] [address] PCP - General 02/20/06 Food Vendor Relationship Specialty Start Date End Date Paulo Scott MD [address] [place] [address] PCP - General 02/20/06 Food Vendor Relationship Specialty Start Date End Date Paulo Scott MD [address] [place], [place] [address] PCP - General 02/20/06 Food Vendor Relationship Specialty Start Date End Date Paulo Scott MD [address] [place], [place] [address] PCP - General 02/20/06 Team Status: Inactive Member Role Status Dates Dr. Paulo Scott MD Primary Care Provider, Referr ing Provider Active Suzie Lewis BINDERY MACHINE OPERATOR, BINDERY MACHINE OPERATOR-C Attending Provider Active Team Status: [...] Casper DO Attending Provider, Referring Provider Active Food Vendor Relationship Specialty Start Date End Date Paulo Scott MD [address] [place], [place] [address] PCP - General 02/20/06 Food Vendor Relationship Specialty Start Date End Date Paulo Scott MD [address] [place] [address] PCP - General 02/20/06 Food Vendor Relationship Specialty Start Date End Date Paulo Scott MD [address] [place] [address] PCP - General 02/20/06 Food Vendor Relationship Specialty Start Date End Date Paulo Scott MD [address] [place] [address] PCP - General 02/20/06 Food Vendor Relationship Specialty Start Date End Date Paulo Scott MD [address] [place] [address] PCP - General 02/20/06 Team Status: Inactive Member Role Status Dates Dr. Paulo Scott MD Primary Care Provider, Referr ing Provider Active Ellen Estrella BINDERY MACHINE OPERATOR, BINDERY MACHINE OPERATOR-C Attending Provider Active Team Status: Active Member Role Status Dates Dr. Paulo Scott MD Primary Care Provider Active Dr. Raul Casper DO Attending Provid er, Referring Provider, Other Provider Active Team Status: Inactive Member Role Status Dates Dr. Paulo Scott MD Primary Care Provider Active Dr. Stew Garza DO Emergency Provider Active Food Vendor Relationship Specialty Start Date End Date Paulo Scott MD [address] [place] [address] PCP - General 02/20/06 Food Vendor Relationship Specialty Start Date End Date Paulo Scott MD [address] [place] [address] PCP - General 02/20/06 Food Vendor Relationship Specialty Start Date End Date Paulo Scott MD [address] [place] [address] PCP - General 02/20/06 Food Vendor Relationship Specialty Start Date End Date Paulo Scott MD [address] [place] [address] PCP - General 02/20/06 Food Vendor Relationship Specialty Start Date End Date Paulo Scott MD [address] [place] [address] PCP - General 02/20/06 Food Vendor Relationship Specialty Start Date End Date Paulo Scott MD [address] [place] [address] PCP - General 02/20/06 Food Vendor Relationship Specialty Start Date End Date Paulo Scott MD [address] [place] [address] PCP - General 02/20/06 Food Vendor Relationship Specialty Start Date End Date Paulo Scott MD [address] [place] [address] PCP - General 02/20/06 Food Vendor Relationship Specialty Start Date End Date Paulo Scott MD [address] [place] [address] PCP - General 02/20/06 Food Vendor Relationship Specialty Start Date End Date Paulo Scott MD [address] [place] [address] PCP - General 02/20/06 Food Vendor Relationship Specialty Start Date End Date Paulo Scott MD [address] [facility] [place] [place] [address] PCP - General 02/20/06 Food Vendor Relationship Specialty Start Date End Date Paulo Scott MD [address] [facility] [place] [address] PCP - General 02/20/06 Food Vendor Relationship Specialty Start Date End Date Paulo Scott MD [address] [place] [address] PCP - General 02/20/06 Food Vendor Relationship Specialty Start Date End Date Paulo Scott MD [address] [place] [address] PCP - General 02/20/06 Food Vendor Relationship Specialty Start Date End Date Paulo Scott MD [address] [place] [address] PCP - General 02/20/06 Juan Rodriguez, TOBACCO GRADER.OVERLOCK HEMMER [address] [place] [address] [facility] 02/23/24 Norman Garcia, TOBACCO GRADER.CEMENT PAVER [address] [place] [address] [facility] 02/23/24 Food Vendor Relationship Specialty Start Date End Date Paulo Scott MD [address] [place] [address] PCP - General 02/20/06 Juan Rodriguez, TOBACCO GRADER.OVERLOCK HEMMER [address] [place] [address] [facility] 02/23/24 Norman Garcia TOBACCO GRADER.CEMENT PAVER [address] [place] [address] [facility] Internal Medicine 02/23/24 Food Vendor Relationship Specialty Start Date End Date Paulo Scott MD [address] [place] [address] PCP - General 02/20/06 Juan Rodriguez, GIDEON.OVERLOCK HEMMER [address] [place] [address] [facility] Internal Medicine 02/23/24 Norman Garcia TOBACCO GRADER.CEMENT PAVER [address] [place] [address] [facility] Internal Medicine 02/23/24 Team Status: Active [...] August 22, 2024 End: August 22, 2024 Food Vendor Relationship Specialty Start Date End Date Paulo Scott MD [address] [place], [place] [address] PCP - General 02/20/06 Norman Garcia, TOBACCO GRADER.CEMENT PAVER [address] [place], [place] [id number] [facility] 06/08/24 Juan Rodriguez, TOBACCO GRADER.OVERLOCK HEMMER [address] [place], [place] [id number] [facility] Internal Medicine 08/04/24 Food Vendor Relationship Specialty Start Date End Date Paulo Scott MD [address] [facility] [place] [address] PCP - General 02/20/06 Norman Garcia, TOBACCO GRADER.CEMENT PAVER [address] [facility] [place] [address] [facility] 06/08/24 Juan Rodriguez, TOBACCO GRADER.OVERLOCK HEMMER [address] [facility] [place] [address] [facility] Internal Medicine 08/04/24 Food Vendor Relationship Specialty Start Date End Date Paulo Scott MD [address] [facility] [place] [address] PCP - General 02/20/06 Norman Garcia TOBACCO GRADER.CEMENT PAVER [address] [facility] [place] [address] [facility] 06/08/24 Juan Rodriguez, TOBACCO GRADER.OVERLOCK HEMMER [address] [facility] [place] [address] [facility] Internal Medicine 08/04/24 Food Vendor Relationship Specialty Start Date End Date Paulo Scott MD [address] [facility] [place] [address] PCP - General 02/20/06 Norman Garcia TOBACCO GRADER.CEMENT PAVER [address] [facility] [place] [address] [facility] 06/08/24 Juan Rodriguez, TOBACCO GRADER.OVERLOCK HEMMER [address] [facility] [place] [address] [facility] 08/04/24 Food Vendor Relationship Specialty Start Date End Date Paulo Scott MD [address] [facility] [place] [address] PCP - General 02/20/06 Norman Garcia, TOBACCO GRADER.CEMENT PAVER [address] [facility] [place] [place] [address] [facility] 06/08/24 Juan Rodriguez, TOBACCO GRADER.OVERLOCK HEMMER [address] [facility] [place] [place] [address] [facility] Internal Medicine 08/04/24 Food Vendor Relationship Specialty Start Date End Date Paulo Scott MD [address] [facility] [place] [address] PCP - General 02/20/06 Norman Garcia, TOBACCO GRADER.CEMENT PAVER [address] [facility] [place] [address] [facility] 06/08/24 Juan Rodriguez, TOBACCO GRADER.OVERLOCK HEMMER [address] [facility] [place] [place] [address] [facility] 08/04/24 Team Status: Active Member [...] October 15, 2024 End: October 15, 2024 Food Vendor Relationship Specialty Start Date End Date Paulo Scott MD [address] [place], [place] [address] PCP - General 02/20/06 Norman Garcia APRN.CEMENT PAVER [address] [place] [address] [facility] 06/08/24 Juan Rodriguez, TOBACCO GRADER.OVERLOCK HEMMER [address] [facility] [place] [address] [facility] Internal Medicine 08/04/24 Food Vendor Relationship Specialty Start Date End Date Paulo Scott MD [address] [facility] [place] [address] PCP - General 02/20/06 Norman Garcia, TOBACCO GRADER.CEMENT PAVER [address] [facility] [place] [place] [address] [facility] 06/08/24 Juan Rodriguez, TOBACCO GRADER.OVERLOCK HEMMER [address] [facility] [place] [place] [address] [facility] Internal Medicine 08/04/24 Food Vendor Relationship Specialty Start Date End Date Paulo Scott MD [address] [facility] [place] [address] PCP - General 02/20/06 Norman Garcia, TOBACCO GRADER.CEMENT PAVER [address] [facility] [place] [place] [address] [facility] Internal Medicine 06/08/24 Juan Rodriguez, TOBACCO GRADER.OVERLOCK HEMMER [address] [facility] [place] [place] [address] [facility] Internal Medicine 08/04/24 Team Status: Active [...] 2024 End: January 03, 2025 Jacquelin Odell BINDERY MACHINE OPERATOR-C Nurse Practitioner Active Start: December 27, 2024 [...] Practitioner Active S tart: December 28, 2024 RA PorrasC Nurse Practitioner Active Start: December 28, [...] Active S tart: December 31, 2024 Dr. Clitfon Wells MD Nurse Practitioner Active Start: December [...] Provider Active Start: December 27, 2024 Dr. Ksehav Eliozndo MD Nurse Practitioner Active Start: December 27, [...] Active Start: January 13, 2025 Nathalie HALE BINDERY MACHINE OPERATOR-C Attending physician Active Start: January 13, 2025 [...] section and content) DATE CREATED AUTHOR 01/25/2025 [facility] DATE CREATED AUTHOR AUTHOR'S ORGANIZ ATION 01/26/2025 [facility] FOR RECORDS PERTAINING TO PATIENTS WHO ARE [...] BE BASED ON THE PRIMARY CLINICAL RECORDS. [employer] provides no warranty or guarantee of the accuracy or completeness of information in this document.
[2025-02-18 17:54] LABS: Anion Gap 12 (5-15); BUN 16 mg/dL (4-19); BUN/Creat Ratio 15.9 RATIO (10-20); Calcium,Total 10.0 mg/dL (7.6-11.0); Carbon Dioxide 28.3 mmol/L (21.0-32.0); Chloride 95 mmol/L (98-108); Estimated Creatinine Clearance 53.37 ml/min (50-250); Glucose 229 mg/dL (70-99); Potassium 2.6 mmol/L (3.3-5.1)
[2025-02-18] MEDS: Potassium Chloride Oral Soln 20 MEQ/15 ML UDC 40 MEQ PO (18:06)
[2025-02-18] MEDS: Potassium Chloride 10mEq/100mL 10 MEQ/100 ML IV.SOLN. 100 MEQ IV BOLUS ×2 (18:12→19:18)
[2025-02-18 19:00] VITALS: BP 122/67; PULSE 74; RESP 17; O2SAT 95
[2025-02-18 19:59] LABS: Mucous, Urine 0 SEEN /hpf (<or=2+)
[2025-02-18 20:12] LABS: Color, Urine Yellow (Yellow); Glucose, Dipstick 250 mg/dl (Normal); Ketone-Dipstick Negative (Negative); Leukocyte Esterase-Dipstick 100 /ul (Negative); Nitrite-Dipstick Positive (Negative); Occult Blood-Urine Negative /ul (Negative); Protein-Dipstick 15 mg/dl (Negative); Specific Gravity, Urine 1.015 (1.002-1.030); Urine Bilirubin Dipstick Negative (Negative)
[2025-02-18 20:44] LABS: Red Blood Cells-Urine 0-5 SEEN /hpf (0-5); Squamous Epithelial Cells - UA 0-5 SEEN /hpf (5-10)
[2025-02-18 21:00] VITALS: BP 118/61; PULSE 70; RESP 18; O2SAT 98
[2025-02-18 21:11] VITALS: BP 118/61; PULSE 70; RESP 18; TEMP 36.6; O2SAT 98
== END 2025-02-18 21:17 | disposition home or self-care (01) ==
PROVIDERS: Emergency Provider Emergency Medicine; PCP Internal Medicine; Visit Provider Emergency Medicine
DX: E87.6 Hypokalemia (principal); Z79.4 Long term (current) use of insulin; N39.0 Urinary tract infection, site not specified; I10 Essential (primary) hypertension; I25.10 Atherosclerotic heart disease of native coronary artery without angina pectoris; Z79.899 Other long term (current) drug therapy; Z79.82 Long term (current) use of aspirin; Z79.84 Long term (current) use of oral hypoglycemic drugs; Z86.718 Personal history of other venous thrombosis and embolism; Z86.73 Personal history of transient ischemic attack (TIA), and cerebral infarction without residual deficits
CPT/HCPCS: 80048; 81001; 85025; 93005; 96365; 96366; 99285; A4216

== ENCOUNTER 2025-03-15 10:47 | Day surgery (SDC) | payer MEDICARE, BC, SELFPAY ==
--- NOTE | 2025-03-11 15:08 | PAT.ANESEVAL ---
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 When Was Last Pacemaker Check QUESTION #4 FULL TEXT: You/Your Family Experience fever (hyperthermia) with Anesthesia Last Oral Intake Last Oral intake: Last Oral Intake NPO since Meds taken in AM with sips of water? 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 Female Yes 03/11/25 11:05 HX of Motion Sickness No 03/11/25 11:05 HX of N/V After Surgery No 03/11/25 11:05 Non-Smoker Yes 03/11/25 11:05 Duration of Surgery greater No 03/11/25 11:05 than 60 minutes Number of Risk Factors 2 03/11/25 11:05 PONV Score Moderate Risk 03/11/25 11:05 Height & Weight Height & Weight: Anesthesia: Height & Weight Height 5 ft 4 in 02/18/25 15:29 Respiratory Assessment Respiratory Assessment - physically impaired teacher: Respiratory Tract Infection Hx - physically impaired teacher Hx Respiratory Tract Infection No 03/11/25 11:05 STOP Sleep Apnea STOP Sleep Apnea - physically impaired teacher: STOP Sleep Apnea - physically impaired teacher Hx Hypertension Yes 03/11/25 11:05 Hx Sleep Apnea No 03/11/25 11:05 CPAP BIPAP Do you snore loudly (louder No 03/11/25 11:05 than talking or can be heard Do you often feel tired/ No 03/11/25 11:05 fatigued/ sleepy during daytime? Has anyone observed you stop No 03/11/25 11:05 breathing during sleep? STOP Results Negative 03/11/25 11:05 QUESTION #5 FULL TEXT : Do you snore loudly (louder than talking or can be heard through closed doors)? 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 Specify any problems Hx of Preganancy in last 3 N/A 03/11/25 11:05 Months Nurse Filling Out Transfusion NBUCHER 03/11/25 11:05 & Questions: Date: 03/11/25 03/11/25 11:05 Time: 11:08 03/11/25 11:05 Patient unable to answer at this time (ie. confused, unrespo /Reproduction History /Reproductive History - physically impaired teacher: /Reproductive Hx- physically impaired teacher Hx Now Gestational Age (in weeks): EDC: Hx Hx Para Hx Section SAB No 03/11/25 11:05 Does the father of the baby or his family experience fever w Father of the baby Malignant Hypertension history comment [facility] Medical History (Updated 03/11/25 @ 11:18 by Elsy Pritchett) Rash Insulin dependent diabetes mellitus Diabetes Low iron Restless legs Neuropathy Dietary restriction History of hiatal hernia History of GI bleed Hypertension Moderate left ventricular hypertrophy Loss of hearing Wears glasses Wears partial dentures Post-menopausal Anxiety Thyroid disease Ambulates with cane Urinary incontinence Difficulty swallowing Gastric reflux Non-smoker History of echocardiogram History of stress test Seasonal allergies History of edema Cardiology follow-up encounter History of cataract Ganglion cyst Atherosclerotic heart disease of [place] coronary artery without angina pectoris Cholelithiasis with chronic cholecystitis Cholecystitis Pancreatitis, gallstone Gallstones Pancreatitis Dysmetabolic syndrome X DVT (deep venous thrombosis) Barretts esophagus Hypothyroidism Fibromyalgia History of DVT (deep vein thrombosis) Essential hypertension Segmental and somatic dysfunction of pelvic region Segmental and somatic dysfunction of lumbar region Segmental and somatic dysfunction of thoracic region DDD (degenerative disc disease), lumbar History of atrial dilatation PAD (peripheral artery disease) TIA (transient ischemic attack) Osteoarthritis GERD (gastroesophageal reflux disease) IBS (irritable bowel syndrome) Cataracts, bilateral Arthritis Anemia Environmental allergies Home Medications ?Medication ?Instructions ?Recorded ?Last Taken ?Type gabapentin 100 mg capsule 300 mg PO QHS PAIN 01/11/14 12/26/24 History aspirin 81 mg tablet,delayed 81 mg PO DAILY@0800 HEART 02/09/19 12/26/24 History release multivitamin 1 tab PO DAILY SUPPLEMENT 04/08/19 12/26/24 History levothyroxine 88 mcg tablet 88 mcg PO DAILY THYROID 07/26/22 12/27/24 History cranberry fruit concentrate 250 mg 250 mg PO DAILY [facility] 01/31/23 12/27/24 History chewable tablet (Azo Cranberry) amlodipine 5 mg tablet 5 mg PO DAILY HTN 10/15/24 12/26/24 History acetaminophen 325 mg tablet 650 mg (2 x 325 mg) PO Q6H PRN PRN 01/03/25 Unknown Rx Pain 1-10 Or Fever #0 tabs pantoprazole 40 mg tablet,delayed 40 mg PO BID #0 tabs 01/03/25 Unknown Rx release benzonatate 100 mg capsule 100 mg PO BID-TID PRN cough 02/17/25 Unknown History budesonide 0.5 mg/2 mL suspension 0.5 mg inhalation DAILY 02/17/25 Unknown History for nebulization cholecalciferol (vitamin D3) 10 10 mcg PO DAILY 02/17/25 Unknown History mcg (400 unit) capsule diazepam 5 mg tablet 5 mg PO QHS 02/17/25 Unknown History diclofenac sodium 1 % topical gel 2 g topical 4XD 02/17/25 Unknown History (Arthritis Pain (diclofenac)) furosemide 40 mg tablet 40 mg PO DAILY #1 TAB 02/17/25 Unknown Rx insulin glargine 100 unit/mL (3 20 unit subcut DAILY 02/17/25 Unknown History mL) subcutaneous pen (Lantus Solostar U-100 Insulin) lidocaine HCl 4 % topical cream 1 applic topical BID 02/17/25 Unknown History (Aspercreme (lidocaine HCl)) ferrous sulfate 324 mg (65 mg 324 mg PO DAILY #30 tabs 02/18/25 Unknown Rx iron) tablet,delayed release potassium chloride 40 mEq/15 mL 40 meq (15 mL) PO DAILY #150 mL 02/18/25 Unknown Rx oral liquid spironolactone 25 mg tablet 25 mg PO DAILY HTN #90 tabs 02/23/25 Unknown Rx insulin lispro 100 unit/mL 5 unit subcut TID 03/11/25 Unknown History subcutaneous solution Allergy/AdvReac Type Severity Reaction Status Date / Time adhesive Allergy Unknown Verified 03/11/25 10:51 benzocaine (From Cetacaine) Allergy Unknown Verified 03/11/25 10:51 butamben (From Cetacaine) Allergy Vomiting Verified 03/11/25 10:51 cortisone (Cortisone) Allergy Unknown Verified 03/11/25 10:51 dipyridamole (From Aggrenox) Allergy Unknown Verified 03/11/25 10:51 lansoprazole (From Prevacid) Allergy Unknown Verified 03/11/25 10:51 meclizine Allergy Unknown Verified 03/11/25 10:51 methylprednisolone acetate Allergy Angioedema Verified 03/11/25 10:51 (From Depo-Medrol) metoprolol Allergy Unknown Verified 03/11/25 10:51 omeprazole (From Prilosec) Allergy Unknown Verified 03/11/25 10:51 omeprazole magnesium (From Allergy Unknown Verified 03/11/25 10:51 Prilosec) oxybutynin chloride (From Allergy Unknown Verified 03/11/25 10:51 Ditropan) sulfamethoxazole (From Allergy Unknown Verified 03/11/25 10:51 Bactrim) tegaserod (From Zelnorm) Allergy Hives Verified 03/11/25 10:51 tegaserod hydrogen maleate Allergy Unknown Verified 03/11/25 10:51 (From Zelnorm) tetracaine (From Cetacaine) Allergy Unknown Verified 03/11/25 10:51 tolterodine tartrate (From Allergy Unknown Verified 03/11/25 10:51 Detrol) trimethoprim (From Bactrim) Allergy Unknown Verified 03/11/25 10:51 lisinopril AdvReac Intermediate Angioedema Verified 03/11/25 10:51 adhesive tape AdvReac Rash Verified 03/11/25 10:51 codeine AdvReac Unknown Verified 03/11/25 10:51 mirabegron (From Myrbetriq) AdvReac Other Verified 03/11/25 10:51 tizanidine AdvReac Other Verified 03/11/25 10:51 vaccine adjuvant system, AdvReac Rash Verified 03/11/25 10:51 AS01B liposomal (From Shingrix (PF)) varicella-zoster virus AdvReac Rash Verified 03/11/25 10:51 glycoprotein E, recombinant (From Shingrix (PF)) Family History Mother Cancer Celiac disease Presence of permanent cardiac pacemaker Father Cancer Sister Hypertension Other Colon cancer Myocardial infarction Surgical History (Updated 03/11/25 @ 11:18 by Elsy Pritchett) History of back surgery History of cholecystectomy Hx of dilation and curettage Hx of cardiac cath History of Robbie fundoplication S/P gastroplasty History of laparotomy Hx of tubal ligation hx of filter removal Hx of superior vena cava filter placement Hx of local excision of skin lesion History of esophagogastroduodenoscopy (EGD) Hx of colonoscopy H/O hernia repair History of tonsillectomy Social History housing: house Smoking Status: Never smoker alcohol intake: never substance use type: does not use caffeine: Yes Type: coffee Number of servings: 2 what type of physical activity do you participate in: walking frequency: 3-4 times per week Audit: Pertinent Findings Pertinent Findings EKG Perinent findings: 02/18/2025. Sinus rhythm with first-degree AV block with P SVC's and frequent and consecutive PVCs. Nonspecific ST and T wave abnormality. Prolonged QT. Stress test pertinent findings: 04/13/2019. EF of 82%. No myocardial perfusion changes consider diagnostic for associated stress-induced myocardial ischemia. Echo (EF%) pertinent findings: 12/30/2024. EF of 75%. No aortic stenosis noted. Consult pertinent findings: 02/17/2025. Tyra BOLIVAR. 1. Atherosclerotic heart disease of [place] coronary artery without angina pectoris. Mild per Cardi catheter in 2006. Patient denies any anginal symptoms. Last stress in March 2019 was negative. 2. Hypertension?adequately controlled on current medical therapy. Patient is intolerant to multiple medications. Patient believes left breast swelling is related to spironolactone. Patient to continue on current medications. 3. Moderate LVH-this is a new finding since last echo. Once anemia is corrected we will repeat an echo. Continue amlodipine for BP control. 4. Diastolic CHF-no current symptoms of CHF. Decrease furosemide to 40 mg daily. Continue spironolactone. Additional pertinent findings: 02/18/2025. Hemoglobin 9.2. Potassium is 2.6 Recommendation Anesthesia Recommendation Anesthesia recommendation: F/U recommended (Patient's potassium of 2.6 needs to be corrected prior to surgery. A potassium on the day before surgery would give us an idea how her correction is going.)
--- NOTE | 2025-03-14 13:55 | PAT.ANE_ITS ---
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 When Was Last Pacemaker Check QUESTION #4 FULL TEXT: You/Your Family Experience fever (hyperthermia) with Anesthesia Last Oral Intake Last Oral intake: Last Oral Intake NPO since Meds taken in AM with sips of water? Meds patient instructed to take am of surgery PONV PONV - research environmental scientist: PONV - research environmental scientist Female Yes 03/11/25 11:05 HX of Motion Sickness No 03/11/25 11:05 HX of N/V After Surgery No 03/11/25 11:05 Non-Smoker Yes 03/11/25 11:05 Duration of Surgery greater No 03/11/25 11:05 than 60 minutes Number of Risk Factors 2 03/11/25 11:05 PONV Score Moderate Risk 03/11/25 11:05 Height & Weight Height & Weight: Anesthesia: Height & Weight Height 5 ft 4 in 02/18/25 15:29 Respiratory Assessment Respiratory Assessment - research environmental scientist: Respiratory Tract Infection Hx - research environmental scientist Hx Respiratory Tract Infection No 03/11/25 11:05 STOP Sleep Apnea STOP Sleep Apnea - research environmental scientist: STOP Sleep Apnea - research environmental scientist Hx Hypertension Yes 03/11/25 11:05 Hx Sleep Apnea No 03/11/25 11:05 CPAP BIPAP Do you snore loudly (louder No 03/11/25 11:05 than talking or can be heard Do you often feel tired/ No 03/11/25 11:05 fatigued/ sleepy during daytime? Has anyone observed you stop No 03/11/25 11:05 breathing during sleep? STOP Results Negative 03/11/25 11:05 QUESTION #5 FULL TEXT : Do you snore loudly (louder than talking or can be heard through closed doors)? 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 Specify any problems Hx of Preganancy in last 3 N/A 03/11/25 11:05 Months Nurse Filling Out Transfusion NBUCHER 03/11/25 11:05 & Questions: Date: 03/11/25 03/11/25 11:05 Time: 11:08 03/11/25 11:05 Patient unable to answer at this time (ie. confused, unrespo /Reproduction History /Reproductive History - research environmental scientist: /Reproductive Hx- research environmental scientist Hx Now Gestational Age (in weeks): EDC: Hx Hx Para Hx Section SAB No 03/11/25 11:05 Does the father of the baby or his family experience fever w Father of the baby Malignant Hypertension history comment [facility] Medical History (Updated 03/11/25 @ 11:18 by Elsy Pritchett) Rash Insulin dependent diabetes mellitus Diabetes Low iron Restless legs Neuropathy Dietary restriction History of hiatal hernia History of GI bleed Hypertension Moderate left ventricular hypertrophy Loss of hearing Wears glasses Wears partial dentures Post-menopausal Anxiety Thyroid disease Ambulates with cane Urinary incontinence Difficulty swallowing Gastric reflux Non-smoker History of echocardiogram History of stress test Seasonal allergies History of edema Cardiology follow-up encounter History of cataract Ganglion cyst Atherosclerotic heart disease of [place] coronary artery without angina pectoris Cholelithiasis with chronic cholecystitis Cholecystitis Pancreatitis, gallstone Gallstones Pancreatitis Dysmetabolic syndrome X DVT (deep venous thrombosis) Barretts esophagus Hypothyroidism Fibromyalgia History of DVT (deep vein thrombosis) Essential hypertension Segmental and somatic dysfunction of pelvic region Segmental and somatic dysfunction of lumbar region Segmental and somatic dysfunction of thoracic region DDD (degenerative disc disease), lumbar History of atrial dilatation PAD (peripheral artery disease) TIA (transient ischemic attack) Osteoarthritis GERD (gastroesophageal reflux disease) IBS (irritable bowel syndrome) Cataracts, bilateral Arthritis Anemia Environmental allergies Home Medications ?Medication ?Instructions ?Recorded ?Last Taken ?Type gabapentin 100 mg capsule 300 mg PO QHS PAIN 01/11/14 12/26/24 History aspirin 81 mg tablet,delayed 81 mg PO DAILY@0800 HEART 02/09/19 12/26/24 History release multivitamin 1 tab PO DAILY SUPPLEMENT 12/26/24 History levothyroxine 88 mcg tablet 88 mcg PO DAILY THYROID 12/27/24 History cranberry fruit concentrate 250 mg 250 mg PO DAILY [facility] 01/31/23 12/27/24 History chewable tablet (Azo Cranberry) amlodipine 5 mg tablet 5 mg PO DAILY HTN 10/15/24 1 History acetaminophen 325 mg tablet 650 mg (2 x 325 mg) PO Q6H PRN PRN 01/03/25 Unknown Rx Pain 1-10 Or Fever #0 tabs pantoprazole 40 mg tablet,delayed 40 mg PO BID #0 tabs 01/03/25 Unknown Rx release benzonatate 100 mg capsule 100 mg PO BID-TID PRN cough 02/17/25 Unknown History budesonide 0.5 mg/2 mL suspension 0.5 mg inhalation DA BROOKE 02/17/25 Unknown History for nebulization cholecalciferol (vitamin D3) 10 10 mcg PO DAILY Unknown History mcg (400 unit) capsule diazepam 5 mg tablet 5 mg PO QHS 02/17/25 Unknown History diclofenac sodium 1 % topical gel 2 g topical 4XD 07/09 Unknown History (Arthritis Pain (diclofenac)) furosemide 40 mg tablet 40 mg PO DAILY #1 TAB Unknown Rx insulin glargine 100 unit/mL (3 20 unit subcut DAILY 1 04/20/24 Unknown History mL) subcutaneous pen (Lantus Solostar U-100 Insulin) lidocaine HCl 4 % topical cream 1 applic topical BID 1 04/20/24 Unknown History (Aspercreme (lidocaine HCl)) ferrous sulfate 324 mg (65 mg 324 mg PO DAILY #30 tabs 02/18/25 Unknown Rx iron) tablet,delayed release potassium chloride 40 mEq/15 mL 40 meq (15 mL) PO ISHMAEL Y #150 mL 02/18/25 Unknown Rx oral liquid spironolactone 25 mg tablet 25 mg PO DAILY HTN #90 tab s 02/23/25 Unknown Rx insulin lispro 100 unit/mL 5 unit subcut TID 03/11/25 Unknown History subcutaneous solution Allergy/AdvReac Type Severity Reaction Status Date / Time adhesive Allergy Unknown Verified 03/11/25 10:51 benzocaine (From Cetacaine) Allergy Unknown Verified 03/11/25 10:51 butamben (From Cetacaine) Allergy Vomiting Verified 03/11/25 10:51 cortisone (Cortisone) Allergy Unknown Verified 03/11/25 10:51 dipyridamole (From Aggrenox) Allergy Unknown Verified 03/11/25 10:51 lansoprazole (From Prevacid) Allergy Unknown Verified 03/11/25 10:51 meclizine Allergy Unknown Verified 03/11/25 10:51 methylprednisolone acetate Allergy Angioedema Verified 03/11/25 10:51 (From Depo-Medrol) metoprolol Allergy Unknown Verified 03/11/25 10:51 omeprazole (From Prilosec) Allergy Unknown Verified 03/11/25 10:51 omeprazole magnesium (From Allergy Unknown Verified 03/11/25 10:51 Prilosec) oxybutynin chloride (From Allergy Unknown Verified 03/11/25 10:51 Ditropan) sulfamethoxazole (From Allergy Unknown Verified 03/11/25 10:51 Bactrim) tegaserod (From Zelnorm) Allergy Hives Verified 03/11/25 10:51 tegaserod hydrogen maleate Allergy Unknown Verified 03/11/25 10:51 (From Zelnorm) tetracaine (From Cetacaine) Allergy Unknown Verified 03/11/25 10:51 tolterodine tartrate (From Allergy Unknown Verified 03/11/25 10:51 Detrol) trimethoprim (From Bactrim) Allergy Unknown Verified 03/11/25 10:51 lisinopril AdvReac Intermediate Angioedema Verified 03/11/25 10:51 adhesive tape AdvReac Rash Verified 03/11/25 10:51 codeine AdvReac Unknown Verified 03/11/25 10:51 mirabegron (From Myrbetriq) AdvReac Other Verified 03/11/25 10:51 tizanidine AdvReac Other Verified 03/11/25 10:51 vaccine adjuvant system, AdvReac Rash Verified 03/11/25 10:51 AS01B liposomal (From Shingrix (PF)) varicella-zoster virus AdvReac Rash Verified 03/11/25 10:51 glycoprotein E, recombinant (From Shingrix (PF)) Family History Mother Cancer Celiac disease Presence of permanent cardiac pacemaker Father Cancer Sister Hypertension Other Colon cancer Myocardial infarction Surgical History (Updated 03/11/25 @ 11:18 by Elsy Pritchett) History of back surgery History of cholecystectomy Hx of dilation and curettage Hx of cardiac cath History of Robbie fundoplication S/P gastroplasty History of laparotomy Hx of tubal ligation hx of filter removal Hx of superior vena cava filter placement Hx of local excision of skin lesion History of esophagogastroduodenoscopy (EGD) Hx of colonoscopy H/O hernia repair History of tonsillectomy Social History housing: house Smoking Status: Never smoker alcohol intake: never substance use type: does not use caffeine: Yes Type: coffee Number of servings: 2 what type of physical activity do you participate in: walking frequency: 3-4 times per week Audit: Pertinent Findings HISTORY of Pertinent Findings History of Pertinent Findings: EKG Pertinent Findings EKG Perinent findings 02/18/2025. Sinus rhythm 03/11/25 15:15 with first-degree AV block with P SVC's and frequent and consecutive PVCs. Nonspecific ST and T wave abnormality. Prolonged QT. Stress Test Pertinent Findings Stress test pertinent findings 04/13/2019. EF of 82%. No 03/11/25 15:12 myocardial perfusion changes consider diagnostic for associated stress-induced myocardial ischemia. Echo Pertinent Findings Echo (EF%) pertinent findings 12/30/2024. EF of 75%. No 03/11/25 15:12 aortic stenosis noted. Consult Pertinent Findings Consult pertinent findings 02/17/2025. Tyra BOLIVAR. 03/11/25 15:22 1. Atherosclerotic heart disease of [place] coronary artery without angina pectoris. Mild per Cardi catheter in 2006. Patient denies any anginal symptoms. Last stress in March 2019 was negative. 2. Hypertension?adequately controlled on current medical therapy. Patient is intolerant to multiple medications. Patient believes left breast swelling is related to spironolactone. Patient to continue on current medications. 3. Moderate LVH-this is a new finding since last echo. Once anemia is corrected we will repeat an echo. Continue amlodipine for BP control. 4. Diastolic CHF-no current symptoms of CHF. Decrease furosemide to 40 mg daily. Continue spironolactone. Additional Pertinent Findings Additional pertinent findings 02/18/2025. Hemoglobin 9.2. 03/11/25 15:25 Potassium is 2.6 Pertinent Findings Additional pertinent findings: Per office visit dated 03/12/2025 potassium is 4.1. seems is corrected from a previous value of 2.6. Okay to proceed Recommendation Anesthesia Recommendation Anesthesia recommendation: OPTIMIZED for anesthesia
[2025-03-15] VITALS (7 sets, daily range): BP systolic 112–133; BP diastolic 68–108; PULSE 73–84; RESP 14–18; TEMP 36.1–36.8; O2SAT 94–97; BMI 32.9
[2025-03-15] MEDS: Lactated Ringers 1,000 ML 15 ML IV (11:33)
--- NOTE | 2025-03-15 11:44 | PCM.PRE.AN2 ---
ASA Classification* ASA Classification ASA Classification: 3 Assessment & Plan Anesthesia* Anesthesia Assessment Anesthesia Assessment: Discussed sedation and/or anesthesia options, risks, benefits, and alternatives with patient/parents/legal guardian/POA. Questions invited. The patient/parents/legal guardian/POA seems to understand and agrees to proceed with anesthesia plan. Reviewed the physical assessment, medical history, allergy history and patient home medications list prior to surgery/procedure/anesthetic and documented any changes. Performed airway and anesthesia risk assessments. Anesthesia Type Anesthesia Type: MAC History Source History Obtained from:: Patient and Chart Anesthesia Focused Assessment* Temperature: 97.4 F Pulse Rate: 77 Blood Pressure: 128/74 Respiratory Rate: 18 Pulse Ox: 97 Oxygen Delivery Method: Room Air Airway Assessment Mouth opens: >3 cm Mallampati Score: IV Teeth Condition: Partial (Patient has upper partial. They will come out.) Neck Range of motion (ROM): Full ROM Labs Anesthesia Preop lab: CBC WBC, (4.4-11.0) 9.2 K/mm3 02/18/25, 16:47 RBC, (4.2-5.4) 3.86 M/mm3 L 02/18/25, 16:47 Hgb, (12.0-15.0) 9.2 g/dL L 02/18/25, 16:47 Hct, (37-47) 30.9 % L 02/18/25, 16:47 Plt Count, (150-450) 487 K/mm3 H 02/18/25, 16:47 CHEMISTRY Potassium, (3.3-5.1) 2.6 mmol/L L* 02/18/25, 16:47 Sodium, (133-145) 136 mmol/L 02/18/25, 16:47 Magnesium, (1.5-2.2) 2.1 mg/dL 12/29/24, 05:26 Phosphorus, (2.7-4.5) 3.1 mg/dL 12/29/24, 05:26 BUN, (4-19) 16 mg/dL 02/18/25, 16:47 Creatinine, (0.70-1.20) 1.01 mg/dL 02/18/25, 16:47 Glucose, (70-99) 229 mg/dL H 02/18/25, 16:47 POC Glucose, (74-106) 272 mg/dL H 01/03/25, 16:41 TSH, (0.300-4.200) 6.330 uIU/mL H 12/28/24, 04:10 COAG PT, (11.7-14.9) 14.5 SECONDS 12/28/24, 04:10 Pre-Assessment Diagnosis/Proposed Procedure Planned Operative Procedure(s): EGD 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 History - compliance aide: Anesthesia History - compliance aide Hx Hospitalization Yes: 12/28/24 GI BLEED - 03/11/25 11:05 CAUTERIZED 2 Any Problems With Anesthesia No 03/11/25 11:05 Cholinesterase deficiency No 03/11/25 11:05 You/Your Family Experience No 03/11/25 11:05 fever (hyperthermia) with Relationship Recent Exposure to Contagious No 03/15/25 11:15 Disease Does patient have nerve No 03/11/25 11:05 stimulator Patient instructed to have device shut off --Does patient have Pacemaker No 03/15/25 11:15 or ICD? When Was Last Pacemaker Check QUESTION #4 FULL TEXT: You/Your Family Experience fever (hyperthermia) with Anesthesia Last Oral Intake Last Oral intake: Last Oral Intake NPO since 08:30 03/15/25 11:15 Meds taken in AM with sips of Yes 03/15/25 11:15 water? Meds patient instructed to amlodipine, pantoprazole, 03/15/25 11:15 take am of surgery levothyroxine Any additional information?: Yes Meds taken in AM with sips of water?: Yes PONV PONV - compliance aide: PONV - compliance aide Female Yes 03/11/25 11:05 HX of Motion Sickness No 03/11/25 11:05 HX of N/V After Surgery No 03/11/25 11:05 Non-Smoker Yes 03/11/25 11:05 Duration of Surgery greater No 03/11/25 11:05 than 60 minutes Number of Risk Factors 2 03/11/25 11:05 PONV Score Moderate Risk 03/11/25 11:05 Height & Weight Height & Weight: Anesthesia: Height & Weight Height 5 ft 4 in 03/15/25 11:15 Weight: 87 kg 03/15/25 11:15 Body Mass Index (BMI) 32.9 03/15/25 11:15 Respiratory Assessment Respiratory Assessment - compliance aide: Respiratory Tract Infection Hx - compliance aide Hx Respiratory Tract Infection No 03/11/25 11:05 STOP Sleep Apnea STOP Sleep Apnea - compliance aide: STOP Sleep Apnea - compliance aide Hx Hypertension Yes 03/11/25 11:05 Hx Sleep Apnea No 03/11/25 11:05 CPAP BIPAP Do you snore loudly (louder No 03/11/25 11:05 than talking or can be heard Do you often feel tired/ No 03/11/25 11:05 fatigued/ sleepy during daytime? Has anyone observed you stop No 03/11/25 11:05 breathing during sleep? STOP Results Negative 03/11/25 11:05 QUESTION #5 FULL TEXT : Do you snore loudly (louder than talking or can be heard through closed doors)? 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 Specify any problems Hx of Preganancy in last 3 N/A 03/11/25 11:05 Months Nurse Filling Out Transfusion NBUCHER 03/11/25 11:05 & Questions: Date: 03/11/25 03/11/25 11:05 Time: 11:08 03/11/25 11:05 Patient unable to answer at this time (ie. confused, unrespo /Reproduction History /Reproductive History - compliance aide: /Reproductive Hx- compliance aide Hx Now Gestational Age (in weeks): EDC: Hx Hx Para Hx Section SAB No 03/11/25 11:05 Does the father of the baby or his family experience fever w Father of the baby Malignant Hypertension history comment Active Medications Active Medications: Current Medications Generic Name Dose Route Start Last Admin Trade Name Freq PRN Reason Stop Dose Admin Lactated Ringer's 1,000 mls @ 15 mls/hr 03/15/25 11:00 03/15/25 11:33 IV 15 mls/hr .Q48H SELAM Administration PFSH Medical History Rash Insulin dependent diabetes mellitus Diabetes Low iron Restless legs Neuropathy Dietary restriction History of hiatal hernia History of GI bleed Hypertension Moderate left ventricular hypertrophy Loss of hearing Wears glasses Wears partial dentures Post-menopausal Anxiety Thyroid disease Ambulates with cane Urinary incontinence Difficulty swallowing Gastric reflux Non-smoker History of echocardiogram History of stress test Seasonal allergies History of edema Cardiology follow-up encounter History of cataract Ganglion cyst Atherosclerotic heart disease of squ[place] coronary artery without angina pectoris Cholelithiasis with chronic cholecystitis Cholecystitis Pancreatitis, gallstone Gallstones Pancreatitis Dysmetabolic syndrome X DVT (deep venous thrombosis) Barretts esophagus Hypothyroidism Fibromyalgia History of DVT (deep vein thrombosis) Essential hypertension Segmental and somatic dysfunction of pelvic region Segmental and somatic dysfunction of lumbar region Segmental and somatic dysfunction of thoracic region DDD (degenerative disc disease), lumbar History of atrial dilatation PAD (peripheral artery disease) TIA (transient ischemic attack) Osteoarthritis GERD (gastroesophageal reflux disease) IBS (irritable bowel syndrome) Cataracts, bilateral Arthritis Anemia Environmental allergies Home Medications ?Medication ?Instructions ?Recorded ?Last Taken ?Type gabapentin 100 mg capsule 300 mg PO QHS PAIN 01/11/14 03/14/25 History aspirin 81 mg tablet,delayed 81 mg PO DAILY@0800 HEART 02/09/19 03/10/25 History release multivitamin 1 tab PO DAILY SUPPLEMENT 04/08/19 03/14/25 History levothyroxine 88 mcg tablet 88 mcg PO DAILY THYROID 07/26/22 03/15/25 History cranberry fruit concentrate 250 mg 250 mg PO DAILY URINARY HEALTH 01/31/23 03/14/25 History chewable tablet (Azo Cranberry) amlodipine 5 mg tablet 5 mg PO DAILY HTN 10/15/24 03/15/25 History acetaminophen 325 mg tablet 650 mg (2 x 325 mg) PO Q6H PRN PRN 01/03/25 03/14/25 Rx Pain 1-10 Or Fever #0 tabs pantoprazole 40 mg tablet,delayed 40 mg PO BID #0 tabs 01/03/25 03/15/25 Rx release benzonatate 100 mg capsule 100 mg PO BID-TID PRN cough 02/17/25 03/14/25 History budesonide 0.5 mg/2 mL suspension 0.5 mg inhalation DAILY 02/17/25 03/14/25 History for nebulization cholecalciferol (vitamin D3) 10 10 mcg PO DAILY 02/17/25 03/14/25 History mcg (400 unit) capsule diazepam 5 mg tablet 5 mg PO QHS 02/17/25 03/14/25 History diclofenac sodium 1 % topical gel 2 g topical 4XD 02/17/25 03/14/25 History (Arthritis Pain (diclofenac)) furosemide 40 mg tablet 40 mg PO DAILY #1 TAB 02/17/25 03/14/25 Rx insulin glargine 100 unit/mL (3 20 unit subcut DAILY 02/17/25 03/14/25 History mL) subcutaneous pen (Lantus Solostar U-100 Insulin) lidocaine HCl 4 % topical cream 1 applic topical BID 02/17/25 03/14/25 History (Aspercreme (lidocaine HCl)) ferrous sulfate 324 mg (65 mg 324 mg PO DAILY #30 tabs 02/18/25 03/14/25 Rx iron) tablet,delayed release potassium chloride 40 mEq/15 mL 40 meq (15 mL) PO DAILY #150 mL 02/18/25 03/14/25 Rx oral liquid spironolactone 25 mg tablet 25 mg PO DAILY HTN #90 tabs 02/23/25 03/14/25 Rx insulin lispro 100 unit/mL 5 unit subcut TID 03/11/25 03/14/25 History subcutaneous solution Allergy/AdvReac Type Severity Reaction Status Date / Time adhesive Allergy Unknown Verified 03/15/25 11:12 benzocaine (From Cetacaine) Allergy Unknown Verified 03/15/25 11:12 butamben (From Cetacaine) Allergy Vomiting Verified 03/15/25 11:12 cortisone (Cortisone) Allergy Unknown Verified 03/15/25 11:12 dipyridamole (From Aggrenox) Allergy Unknown Verified 03/15/25 11:12 lansoprazole (From Prevacid) Allergy Unknown Verified 03/15/25 11:12 meclizine Allergy Unknown Verified 03/15/25 11:12 methylprednisolone acetate Allergy Angioedema Verified 03/15/25 11:12 (From Depo-Medrol) metoprolol Allergy Unknown Verified 03/15/25 11:12 omeprazole (From Prilosec) Allergy Unknown Verified 03/15/25 11:12 omeprazole magnesium (From Allergy Unknown Verified 03/15/25 11:12 Prilosec) oxybutynin chloride (From Allergy Unknown Verified 03/15/25 11:12 Ditropan) sulfamethoxazole (From Allergy Unknown Verified 03/15/25 11:12 Bactrim) tegaserod (From Zelnorm) Allergy Hives Verified 03/15/25 11:12 tegaserod hydrogen maleate Allergy Unknown Verified 03/15/25 11:12 (From Zelnorm) tetracaine (From Cetacaine) Allergy Unknown Verified 03/15/25 11:12 tolterodine tartrate (From Allergy Unknown Verified 03/15/25 11:12 Detrol) trimethoprim (From Bactrim) Allergy Unknown Verified 03/15/25 11:12 lisinopril AdvReac Intermediate Angioedema Verified 03/15/25 11:12 adhesive tape AdvReac Rash Verified 03/15/25 11:12 codeine AdvReac Unknown Verified 03/15/25 11:12 mirabegron (From Myrbetriq) AdvReac Other Verified 03/15/25 11:12 tizanidine AdvReac Other Verified 03/15/25 11:12 vaccine adjuvant system, AdvReac Rash Verified 03/15/25 11:12 AS01B liposomal (From Shingrix (PF)) varicella-zoster virus AdvReac Rash Verified 03/15/25 11:12 glycoprotein E, recombinant (From Shingrix (PF)) Family History Mother Cancer Celiac disease Presence of permanent cardiac pacemaker Father Cancer Sister Hypertension Other Colon cancer Myocardial infarction Surgical History History of back surgery History of cholecystectomy Hx of dilation and curettage Hx of cardiac cath History of Robbie fundoplication S/P gastroplasty History of laparotomy Hx of tubal ligation hx of filter removal Hx of superior vena cava filter placement Hx of local excision of skin lesion History of esophagogastroduodenoscopy (EGD) Hx of colonoscopy H/O hernia repair History of tonsillectomy Social History housing: house Smoking Status: Never smoker alcohol intake: never substance use type: does not use caffeine: Yes Type: coffee Number of servings: 2 what type of physical activity do you participate in: walking frequency: 3-4 times per week Review of Systems (Anesthesia) ROS Narrative System reviewed and no additional complaints, except as documented. Physical Exam Resp clear to auscultation bilaterally
--- NOTE | 2025-03-15 12:00 | EGD_PTH ---
PATIENT: EILEEN CHRISTINE LOC: [facility] U#:[id number] AGE/SX: 75/F ROOM: RE03/15/[address]: Dr. Raul Casper DO : 1950 BED: DIS: 03/15/2025 SPEC #: [id number] RECD: 03/15/25 13:36 STATUS: KEKE RE #: [id number] IAN: 03/15/25 12:[address]: Raul Casper DEPT: SURGICAL PATHOLOGY RECD BY: Nidia Min ENTERED: 03/15/25 14:09 SP TYPE: EGD BIOPSY VANNESA DR: Dr. Miryam Riojas MD Tissues: Esophagus, NOS Procedures: Surgery Specimen Level IV HEADER OPERATION: EGD with biopsy PRE-OP DIAGNOSIS: Anemia, GI bleed TISSUE SUBMITTED: A. Distal esophagus MICROSCOPIC DIAGNOSIS A. Distal esophagus, biopsy: - Columnar mucosa with focal goblet cell metaplasia - see note. - Focal benign squamous mucosa. - Negative for dysplasia. Note: Focal goblet cell metaplasia raises consideration of Sarmiento mucosa, in the appropriate clinical and endoscopic setting. Clinical correlation is necessary. MICROSCOPIC DESCRIPTION Slides are reviewed. GROSS DESCRIPTION A. Received is one container labeled with the patient name and designated distal esophagus. The specimen consists of three irregular fragments of light chou soft tissue that in aggregate measure 1 x 0.3 x 0.2 cm. The specimen is totally submitted in one cassette. 03/15/2025 CPT:[id number]
--- NOTE | 2025-03-15 12:48 | PCM.HP.STD ---
HPI - General General Date of Admission: 03/15/25 Date of Service: 03/15/25 Chief Complaint: GI bleed HPI Narrative KESHIA CHRISTINE, is a 75 F who presents [Chief Complaint: GI bleed [facility] ED 12/09/24 for lightheadedness and nausea. OV 12/17/2024 patient here today for follow-up after ED visit with nausea. Patient was found to have a UTI and was started on cephalexin. This has caused her to become constipated. She did not like taking the cephalexin and feels her bowels have normalized. 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 She endorses daily heartburn and will drink milk for this. [facility] admission 12/27/2024 through 01/03/2025 after presentation to the ED with abdominal pain, nausea, vomiting and dark stools. CT abdomen pelvis with findings suggestive of pancreatitis but not corresponding with her lipase. Hemoglobin found to be low 7 and admitted for further evaluation. EGD 12/28/2024 - LA Grade C erosive esophagitis with bleeding. Biopsied. Treated with a heater probe. - Zakia-Quezada tear. Treated with a heater probe. - Hiatal hernia. - A fundoplication was found. The wrap appears loose. - No gross lesions in the entire stomach. - No gross lesions in the entire examined duodenum. [facility] ER 01/14/2025 due to feeling unwell. Glucose in the 300s. And given insulin and discharged. Office visit 01/21/2025 patient currently residing in a nursing facility but will be leaving next week. She denies any further black or tarry stool. [facility] Medical History Rash Insulin dependent diabetes mellitus Diabetes Low iron Restless legs Neuropathy Dietary restriction History of hiatal hernia History of GI bleed Hypertension Moderate left ventricular hypertrophy Loss of hearing Wears glasses Wears partial dentures Post-menopausal Anxiety Thyroid disease Ambulates with cane Urinary incontinence Difficulty swallowing Gastric reflux Non-smoker History of echocardiogram History of stress test Seasonal allergies History of edema Cardiology follow-up encounter History of cataract Ganglion cyst Atherosclerotic heart disease of [place] coronary artery without angina pectoris Cholelithiasis with chronic cholecystitis Cholecystitis Pancreatitis, gallstone Gallstones Pancreatitis Dysmetabolic syndrome X DVT (deep venous thrombosis) Barretts esophagus Hypothyroidism Fibromyalgia History of DVT (deep vein thrombosis) Essential hypertension Segmental and somatic dysfunction of pelvic region Segmental and somatic dysfunction of lumbar region Segmental and somatic dysfunction of thoracic region DDD (degenerative disc disease), lumbar History of atrial dilatation PAD (peripheral artery disease) TIA (transient ischemic attack) Osteoarthritis GERD (gastroesophageal reflux disease) IBS (irritable bowel syndrome) Cataracts, bilateral Arthritis Anemia Environmental allergies Home Medications ?Medication ?Instructions ?Recorded ?Last Taken ?Type gabapentin 100 mg capsule 300 mg PO QHS PAIN 01/11/14 03/14/25 History aspirin 81 mg tablet,delayed 81 mg PO DAILY@0800 HEART 02/09/19 03/10/25 History release multivitamin 1 tab PO DAILY SUPPLEMENT 04/08/19 03/14/25 History levothyroxine 88 mcg tablet 88 mcg PO DAILY THYROID 07/26/22 03/15/25 History cranberry fruit concentrate 250 mg 250 mg PO DAILY URINARY HEALTH 01/31/23 03/14/25 History chewable tablet (Azo Cranberry) amlodipine 5 mg tablet 5 mg PO DAILY HTN 10/15/24 03/15/25 History acetaminophen 325 mg tablet 650 mg (2 x 325 mg) PO Q6H PRN PRN 01/03/25 03/14/25 Rx Pain 1-10 Or Fever #0 tabs pantoprazole 40 mg tablet,delayed 40 mg PO BID #0 tabs 01/03/25 03/15/25 Rx release benzonatate 100 mg capsule 100 mg PO BID-TID PRN cough 02/17/25 03/14/25 History budesonide 0.5 mg/2 mL suspension 0.5 mg inhalation DAILY 02/17/25 03/14/25 History for nebulization cholecalciferol (vitamin D3) 10 10 mcg PO DAILY 02/17/25 03/14/25 History mcg (400 unit) capsule diazepam 5 mg tablet 5 mg PO QHS 02/17/25 03/14/25 History diclofenac sodium 1 % topical gel 2 g topical 4XD 02/17/25 03/14/25 History (Arthritis Pain (diclofenac)) furosemide 40 mg tablet 40 mg PO DAILY #1 TAB 02/17/25 03/14/25 Rx insulin glargine 100 unit/mL (3 20 unit subcut DAILY 02/17/25 03/14/25 History mL) subcutaneous pen (Lantus Solostar U-100 Insulin) lidocaine HCl 4 % topical cream 1 applic topical BID 02/17/25 03/14/25 History (Aspercreme (lidocaine HCl)) ferrous sulfate 324 mg (65 mg 324 mg PO DAILY #30 tabs 02/18/25 03/14/25 Rx iron) tablet,delayed release potassium chloride 40 mEq/15 mL 40 meq (15 mL) PO DAILY #150 mL 02/18/25 03/14/25 Rx oral liquid spironolactone 25 mg tablet 25 mg PO DAILY HTN #90 tabs 02/23/25 03/14/25 Rx insulin lispro 100 unit/mL 5 unit subcut TID 03/11/25 03/14/25 History subcutaneous solution Allergy/AdvReac Type Severity Reaction Status Date / Time adhesive Allergy Unknown Verified 03/15/25 11:12 benzocaine (From Cetacaine) Allergy Unknown Verified 03/15/25 11:12 butamben (From Cetacaine) Allergy Vomiting Verified 03/15/25 11:12 cortisone (Cortisone) Allergy Unknown Verified 03/15/25 11:12 dipyridamole (From Aggrenox) Allergy Unknown Verified 03/15/25 11:12 lansoprazole (From Prevacid) Allergy Unknown Verified 03/15/25 11:12 meclizine Allergy Unknown Verified 03/15/25 11:12 methylprednisolone acetate Allergy Angioedema Verified 03/15/25 11:12 (From Depo-Medrol) metoprolol Allergy Unknown Verified 03/15/25 11:12 omeprazole (From Prilosec) Allergy Unknown Verified 03/15/25 11:12 omeprazole magnesium (From Allergy Unknown Verified 03/15/25 11:12 Prilosec) oxybutynin chloride (From Allergy Unknown Verified 03/15/25 11:12 Ditropan) sulfamethoxazole (From Allergy Unknown Verified 03/15/25 11:12 Bactrim) tegaserod (From Zelnorm) Allergy Hives Verified 03/15/25 11:12 tegaserod hydrogen maleate Allergy Unknown Verified 03/15/25 11:12 (From Zelnorm) tetracaine (From Cetacaine) Allergy Unknown Verified 03/15/25 11:12 tolterodine tartrate (From Allergy Unknown Verified 03/15/25 11:12 Detrol) trimethoprim (From Bactrim) Allergy Unknown Verified 03/15/25 11:12 lisinopril AdvReac Intermediate Angioedema Verified 03/15/25 11:12 adhesive tape AdvReac Rash Verified 03/15/25 11:12 codeine AdvReac Unknown Verified 03/15/25 11:12 mirabegron (From Myrbetriq) AdvReac Other Verified 03/15/25 11:12 tizanidine AdvReac Other Verified 03/15/25 11:12 vaccine adjuvant system, AdvReac Rash Verified 03/15/25 11:12 AS01B liposomal (From Shingrix (PF)) varicella-zoster virus AdvReac Rash Verified 03/15/25 11:12 glycoprotein E, recombinant (From Shingrix (PF)) Family History Mother Cancer Celiac disease Presence of permanent cardiac pacemaker Father Cancer Sister Hypertension Other Colon cancer Myocardial infarction Surgical History History of back surgery History of cholecystectomy Hx of dilation and curettage Hx of cardiac cath History of Robbie fundoplication S/P gastroplasty History of laparotomy Hx of tubal ligation hx of filter removal Hx of superior vena cava filter placement Hx of local excision of skin lesion History of esophagogastroduodenoscopy (EGD) Hx of colonoscopy H/O hernia repair History of tonsillectomy Social History housing: house Smoking Status: Never smoker alcohol intake: never substance use type: does not use caffeine: Yes Type: coffee Number of servings: 2 what type of physical activity do you participate in: walking frequency: 3-4 times per week ROS Constitutional Constitutional: Denies fatigue, fever(s), poor appetite, weight gain or weight loss Gastrointestinal Gastrointestinal: Denies belching, bloating, change in bowel habits, change in stool character, chewing difficulty, coffee ground emesis, constipation, cramping, diarrhea, dyspepsia, dysphagia, early satiety, excessive flatus, fecal incontinence, heartburn, hematemesis, hematochezia, hemorrhoids, loose stools, melena, nausea, odynophagia, rectal bleeding, tenesmus, vomiting or weight changes Patient's Goals Of Care . What would you like to achieve or improve as a result of your hospital stay?: None Vital Signs Vital Signs Vital Signs: 03/15/25 11:15 03/15/25 11:15 03/15/25 11:15 Temperature 97.4 F L Temperature Source Temporal Pulse Rate 77 Respiratory Rate 18 Respiratory Pattern Normal Blood Pressure 128/74 H Blood Pressure Mean 92 Blood Pressure Source Monitor Blood Pressure Position Semi-Fowlers Blood Pressure Location Left Arm Baseline BP 128/74 Pulse Ox 97 Oxygen Delivery Method Room Air 03/15/25 12:01 Temperature 97.4 F L Temperature Source Pulse Rate 77 Respiratory Rate 18 Respiratory Pattern Blood Pressure 128/74 H Blood Pressure Mean Blood Pressure Source Blood Pressure Position Blood Pressure Location Baseline BP Pulse Ox 97 Oxygen Delivery Method Room Air Weight Weight: 191 lb 12.835 oz Body Mass Index (BMI) 32.9 Physical Exam Const alert, oriented x3, no apparent distress and healthy appearing General Appearance: cooperative GI normal to inspection, nondistended, normoactive bowel sounds, soft to palpation, non-tender and non-distended Percussion: normal to percussion Rectal Exam: deferred Results Lab / Micro Data Labs: Laboratory Results - last 24 hr 03/15/25 11:23: POC Glucose 149 H Assessment & Plan Assessment/Plan (1) GI bleed: PLAN: Assessment and Plan Assessment and Plan (1) Anemia: Status: Acute (2) GI bleed: Status: Acute Plan: Keshia is a 74-year-old female patient with past medical history of GERD, PAD, DDD, hypertension, hypothyroidism, Sarmiento's esophagus and constipation here today for hospital follow-up. Patient was hospitalized in December 2024 due to anemia. Patient underwent EGD which demonstrated LA grade C reflux esophagitis with bleeding, Zakai-Quezada tear, hiatal hernia, normal stomach and normal duodenum. Pathology consistent with Sarmiento's esophagus, fragment of fibrinolytic debris suggestive of his ulcer and fungal organisms. Nystatin swish and swallow was sent in however patient has declined this at the group home. She continues with pantoprazole 40 mg twice a day. I highly encouraged to continue taking this even when she is discharged from the group home. She has been reluctant to take PPIs in the past. She was scheduled for repeat EGD in 8 weeks to ensure healing of the esophagitis. I have ordered a repeat CBC and iron studies as her hemoglobin is not uptrending. If it continues to downtrend would recommend sooner repeat EGD and colonoscopy. She notes that she had a recent stool test that was negative for blood and denies black or tarry stool. - Repeat CBC and iron studies next week - Continue pantoprazole 40 mg twice a day - Repeat EGD in 8 weeks to ensure healing - Consider repeating EGD sooner if hemoglobin continued to downtrend - Follow-up Note: Portions of this note may have been selectively carried forward from previous documentation to ensure continuity and accuracy of the clinical record. All imported information has been reviewed and updated as necessary to reflect the current patient status, findings, and clinical decision-making for this encounter. [employer] speech recognition air brush artist software was used to create portions of this document. Sound alike and misspelled words, as well as other air brush artist errors may be contained in the documentation. Orders: Orders CBC W/Diff, Automated 3 Days E03.9 - Hypothyroidism, unspecified Iron+Iron Binding Capacity 3 Days E03.9 - Hypothyroidism, unspecified ]
[2025-03-15] MEDS: Lidocaine 1% (5 ml sdv) 5 ML Vial IV (12:58)
--- NOTE | 2025-03-15 13:10 | OP.PROVAT_ITS ---
03/15/2025 Miryam Riojas [address] [place] [address] Re : Upper GI endoscopy procedure for Keshia Rojas Dear Dr. Riojas This procedure was performed on Saturday, March 15, 2025. My impressions and recommendations are as follows: Impressions : - Esophageal mucosal changes secondary to established short-segment Sarmiento's disease. Biopsied. - Small hiatal hernia. - No gross lesions in the entire examined duodenum. Recommendations : - Await pathology results. - Repeat upper endoscopy in 1 year for surveillance. - Continue present medications. My findings are described in the full procedure note, which is enclosed. If I can be of further assistance, please feel free to contact me at . Sincerely, Raul Casper, 03/15/2025 1:09:29 PM This report has been signed electronically.
--- NOTE | 2025-03-15 13:10 | OP.EGD_ITS ---
Patient Name: Keshia Rojas Procedure Date: 03/15/2025 11:00 AM Date of : 1950 Age: 75 Procedure: Upper GI endoscopy Indications: Iron deficiency anemia, Follow-up of Sarmienot's esophagus Providers: Raul Casper DO Referring MD: Miryam Riojas Medicines: Monitored Anesthesia Care Patient Profile: This is a 75 year old female. Refer to note in patient chart for documentation of history and physical. Patient has symptoms of acute right upper quadrant abdominal pain, chronic epigastric abdominal pain, chronic dyspepsia and chronic heartburn. Complications: No immediate complications. Procedure: Pre-Anesthesia Assessment: - Prior to the procedure, a History and Physical was performed, and patient medications and allergies were reviewed. The patient is competent. The risks and benefits of the procedure and the sedation options and risks were discussed with the patient. All questions were answered and informed consent was obtained. Patient identification and proposed procedure were verified by the physician in the pre-procedure area. Mental Status Examination: alert and oriented. Airway Examination: normal oropharyngeal airway and neck mobility. Respiratory Examination: clear to auscultation. CV Examination: normal. Prophylactic Antibiotics: The patient does not require prophylactic antibiotics. Prior Anticoagulants: The patient has taken no anticoagulant or antiplatelet agents. ASA Grade Assessment: II - A patient with mild systemic disease. After reviewing the risks and benefits, the patient was deemed in satisfactory condition to undergo the procedure. The anesthesia plan was to use monitored anesthesia care (MAC). Immediately prior to administration of medications, the patient was re-assessed for adequacy to receive sedatives. The heart rate, respiratory rate, oxygen saturations, blood pressure, adequacy of pulmonary ventilation, and response to care were monitored throughout the procedure. The physical status of the patient was re-assessed after the procedure. After obtaining informed consent, the endoscope was passed under direct vision. Throughout the procedure, the patient's blood pressure, pulse, and oxygen saturations were monitored continuously. The gastroscope was introduced through the mouth, and advanced to the third part of the duodenum. Small bowel enteroscopy was deemed necessary. The upper GI endoscopy was accomplished without difficulty. The patient tolerated the procedure well. Scope In: 1:01:50 PM Scope Out: 1:05:38 PM Total Procedure Duration Time 0 hours 3 minutes 48 seconds Findings: There were esophageal mucosal changes secondary to established short-segment Sarmiento's disease present in the lower third of the esophagus. The maximum longitudinal extent of these mucosal changes was 3 cm in length. Mucosa was biopsied with a cold forceps for histology at intervals of 1 cm in the lower third of the esophagus. One specimen bottle was sent to pathology. A small hiatal hernia was present. No other significant abnormalities were identified in a careful examination of the stomach. No gross lesions were noted in the entire examined duodenum. Impression: - Esophageal mucosal changes secondary to established short-segment Sarmiento's disease. Biopsied. - Small hiatal hernia. - No gross lesions in the entire examined duodenum. Recommendation: - Await pathology results. - Repeat upper endoscopy in 1 year for surveillance. - Continue present medications. Procedure Code(s): --- Professional --- 49597, Small intestinal endoscopy, enteroscopy beyond second portion of duodenum, not including ileum; with biopsy, single or multiple CPT copyright 2021 [employer]. All rights reserved. The codes documented in this report are preliminary and upon cork slabs sawyer review may be revised to meet current compliance requirements. Raul Casper DO 03/15/2025 1:09:29 PM This report has been signed electronically. Number of Addenda: 0 Note Initiated On: 03/15/2025 11:00 AM
--- NOTE | 2025-03-15 13:25 | PCM.POST.ANE ---
Anesthesia: Postop Eval I Current Vital Signs Temperature: 98.3 F Pulse Rate: 84 Blood Pressure: 133/68 Respiratory Rate: 16 Pulse Ox: 95 Assessment Airway patent: Yes Spontaneous unlabored respirations: Yes nausea: No Vomiting: No Anesthesia Complication: No Fluid Hydration Crystalloid volume administer (ml): 200 Total IV fluid infused: 200 Progress Note Anesthesia document: Postop Eval 1 completed: Yes
--- NOTE | 2025-03-15 15:04 | POSTOPAN2_ITS ---
Anesthesia Postop Eval I Sum Postop Eval Completion status Anesthesia document: Postop Eval 1 completed: Yes Anesthesia Postop Eval I Summary Anesthesia Postop Eval I Summary: Anesthesia Postop Eval I: Assessment Summary Airway patent Yes 03/15/25 13:25 [email or web address] Spontaneous unlabored Yes 03/15/25 13:25 [email or web address] [email or web address] respirations Mental status nausea No 03/15/25 13:25 [email or web address] [email or web address] Vomiting No 03/15/25 13:25 [email or web address] [email or web address] Anesthesia Postop Eval I: Fluid Summary Crystalloid volume administer 200 03/15/25 13:25 [email or web address] [email or web address] (ml) Colloids volume administered ( ml) Blood Product volume administered (ml) Total IV fluid infused 200 03/15/25 13:25 [email or web address] [email or web address] Anesthesia Postop Eval I: Summary Notes Anesthesia Complication No 03/15/25 13:25 [email or web address] [email or web address] Anesthesia Complication Comment: Post-operative progress note Anesthesia: Postop Eval II Evaluation Mental status: Awake and Calm Pain Level: 0 nausea: No Vomiting: No Complications Anesthesia Complication: No
--- NOTE | 2025-03-15 15:04 | PCM.POSTANE2 ---
Anesthesia Postop Eval I Sum Postop Eval Completion status Anesthesia document: Postop Eval 1 completed: Yes Anesthesia Postop Eval I Summary Anesthesia Postop Eval I Summary: Anesthesia Postop Eval I: Assessment Summary Airway patent Yes 03/15/25 13:25 [email or web address] [email or web address] Spontaneous unlabored Yes 03/15/25 13:25 RAIL CAR [email or web address] respirations Mental status nausea No 03/15/25 13:25 RAIL CAR [email or web address] Vomiting No 03/15/25 13:25 RAIL CAR [email or web address] Anesthesia Postop Eval I: Fluid Summary Crystalloid volume administer 200 03/15/25 13:25 RAIL [email or web address] (ml) Colloids volume administered ( ml) Blood Product volume administered (ml) Total IV fluid infused 200 03/15/25 13:25 RAIL CAR [email or web address] Anesthesia Postop Eval I: Summary Notes Anesthesia Complication No 03/15/25 13:25 RAIL [email or web address] Anesthesia Complication Comment: Post-operative progress note Anesthesia: Postop Eval II Evaluation Mental status: Awake and Calm Pain Level: 0 nausea: No Vomiting: No Complications Anesthesia Complication: No
== END 2025-03-15 14:05 | disposition home or self-care (01) ==
LOC: EN 10:54 → AC 10:54
PROVIDERS: PCP Internal Medicine; Referring Provider Internal Medicine; Visit Provider Internal Medicine Gastroenterology
PROC: 0DJ08ZZ Inspection of Upper Intestinal Tract, Via Natural or Artificial Opening Endoscopic (ICD-10-PCS; CPT 43235; principal; 2025-03-15 11:55)
DX: K22.70 Barrett's esophagus without dysplasia (principal); Z79.4 Long term (current) use of insulin; E11.9 Type 2 diabetes mellitus without complications; I10 Essential (primary) hypertension; Z86.718 Personal history of other venous thrombosis and embolism; K44.9 Diaphragmatic hernia without obstruction or gangrene; I25.10 Atherosclerotic heart disease of native coronary artery without angina pectoris; K21.9 Gastro-esophageal reflux disease without esophagitis; Z79.82 Long term (current) use of aspirin; Z79.890 Hormone replacement therapy; E03.9 Hypothyroidism, unspecified; D50.9 Iron deficiency anemia, unspecified; Z79.899 Other long term (current) drug therapy
CPT/HCPCS: 44361; 82962; 88305; J2405